=== PATIENT | female | born 1945 | race Caucasian/White ===

== ENCOUNTER 2023-02-25 07:57 | Outpatient (OUT) | payer MEDICARE, OTHER, SELFPAY ==
[2023-02-25 08:55] LABS: Basophils Absolute Auto 0.1 10^3/uL (0.0-0.1); Basophils Percent Auto 0.8 % (0.2-2.0); Eosinophils Absolute Auto 0.2 10^3/uL (0.0-0.7); Eosinophils Percent Auto 1.8 % (0.9-7.0); Hematocrit 42.8 % (36.0-48.0); Hemoglobin 13.9 g/dL (12.0-16.0); Immature Granulocytes Abs Auto 0.03 10^3/uL (0.00-0.03); Immature Granulocytes Pct Auto 0.3 % (0.0-0.5); Lymphocytes Absolute Auto 1.6 10^3/uL (1.2-3.8); Mean Corpuscular HGB Conc 32.5 g/dL (29.9-35.2); Mean Corpuscular Hemoglobin 31.2 pg (26.7-34.0); Mean Corpuscular Volume 96.2 fL (81.0-99.0); Mean Platelet Volume 11.2 fL (9.5-13.5); Monocytes Absolute Auto 0.8 10^3/uL (0.3-0.8); Monocytes Percent Auto 8.2 % (1.7-12.0); Neutrophils Absolute Auto 7.2 10^3/uL (1.4-6.5); Neutrophils Percent Auto 72.9 % (43.0-75.0); Platelet Count 245 10^3/uL (150-450); Red Blood Count 4.45 10^6/uL (4.20-5.40); Red Cell Distribution Width 12.4 % (11.0-15.0); White Blood Count 9.9 10^3/uL (4.0-11.0)
[2023-02-25 09:41] LABS: Alanine Aminotransferase 22 U/L (14-59); Albumin Globulin Ratio 0.9; Albumin Level 3.8 g/dL (3.4-5.0); Alkaline Phosphatase 91 U/L (46-116); Anion Gap 13.4; Aspartate Amino Transferase 20 U/L (15-37); BUN Creatinine Ratio 20.9; Bilirubin Total 0.6 mg/dL (0.2-1.0); Calcium 10.4 mg/dL (8.5-10.1); Carbon Dioxide 30.7 mmol/L (21.0-32.0); Chloride 99 mmol/L (98-107); Chol HDL Ratio 2.3; Cholesterol 264 mg/dL (<=200); Estimated GFR (African America 37 (>=60); Estimated GFR (Non-African Ame 31 (>=60); Free T3 2.74 pg/mL (2.18-3.98); Globulin 4.3 g/dL; Glucose 131 mg/dL (74-106); HDL Cholesterol 114 mg/dL (40-60); Potassium 4.1 mmol/L (3.5-5.1); Sodium 139 mmol/L (136-145); Thyroid Stimulating Hormone 4.194 uIU/mL (0.358-3.740); Total Protein 8.1 g/dL (6.4-8.2); Triglycerides 105 mg/dL (<=150)
[2023-02-25 10:53] LABS: Estimated Average Glucose 117 mg/dL; Glycohemoglobin A1C 5.7 % (4.5-6.2)
[2023-02-26 11:09] LABS: Insulin 6.6 uIU/mL (2.6-24.9)
== END 2023-02-25 07:58 ==
PROVIDERS: PCP Family Medicine; Visit Provider Family Medicine
DX: I34.0 Nonrheumatic mitral (valve) insufficiency (principal); I48.0 Paroxysmal atrial fibrillation; E78.5 Hyperlipidemia, unspecified; R73.09 Other abnormal glucose; D64.9 Anemia, unspecified; E55.9 Vitamin D deficiency, unspecified; I11.0 Hypertensive heart disease with heart failure; I50.30 Unspecified diastolic (congestive) heart failure
CPT/HCPCS: 36415; 80053; 80061; 82306; 83036; 83525; 83540; 83880; 84436; 84443; 84481; 85025

== ENCOUNTER 2023-03-04 10:59 | Emergency (ER) | payer MEDICARE, OTHER, SELFPAY ==
[2023-03-04 11:03] VITALS: BP 177/96; PULSE 71; RESP 20; TEMP 36.6; O2SAT 98
--- NOTE | 2023-03-04 11:15 | PC.NURSE ---
Nasal clamp applied agt time of arrival to room 11 and pt's fface was cleaned up by RN from the blood. Pt and family member aware to let RN knnow if she becomes nauseas from swallowing the blood. Pt states she understands.
--- NOTE | 2023-03-04 11:56 | ED_ITS ---
HPI - Epistaxis General Chief Complaint: Epistaxis Stated Complaint: NOSE BLEED Time Seen by Provider: 03/04/23 11:56 Source: patient Mode of arrival: walk-in Limitations: no limitations History of Present Illness HPI Narrative: Pt presents emergency department complaining of right naris epistaxis. She states this started this morning and has not stopped. Patient has been applying pressure. She has a history of hypertension her blood pressure was 170 when it started and she took her blood pressure medication this morning. Patient denies any nasal trauma. She has not been sick with any upper respiratory infection symptoms. She is only had this happen 20 years ago. She denies any trauma. Related Data Previous Rx's Medication Instructions Recorded amoxicillin 875 mg-potassium 1 tab PO Q12H #14 tabs 03/04/23 clavulanate 125 mg tablet Allergies Allergy/AdvReac Type Severity Reaction Status Date / Time No Known Drug Allergies Allergy Verified 03/04/23 11:07 Review of Systems ROS Status of ROS 10 or more systems reviewed and unremarkable except as noted in history and below Exam Narrative Exam Narrative: Nurses notes and vital signs reviewed and patient is not hypoxic. General: Nontoxic, Well-appearing and in no apparent distress. Skin: Warm, dry, no pallor noted. No Rash Head: Normocephalic, atraumatic. Neck: Supple, non-tender. Eye: Pupils are equal, round and EOMI. No scleral icterus. Ears, Nose, Mouth, and Throat: TM clear, no posterior oropharynx erythema, Right naris with anterior plexus bleeding. There is a clot noted. Pressure applied for 20 minutes not resolving. Nasal packing done with a Rhino Rocket 5.5 anterior packing. bleeding stopped. pt tolerated well. there is significant narrowing of nasal cavity at 4cm. it was not advanced fully. uvula is mid- line, Oral mucosa is moist Cardiovascular: Regular Rate and Rhythm without murmur, gallop or rub. Respiratory: No accessory muscle use or respiratory distress. Lungs are clear to auscultation, no wheezing, rales or rhonchi Chest Wall: no tenderness Back: No midline thoracic or lumbar vertebral tenderness. No CVA tenderness Musculoskeletal: normal ROM, no calf or popliteal tenderness, no lower extremity edema/swelling GI: Abdomen is soft, non-distended. Normal bowel sounds. No masses appreciated. No tenderness to palpation. No rebound, guarding, or rigidity noted. Neurological: A&O x4. No cranial nerve dysfunction observed. No truncal ataxia. Moves all extremities. Sensation intact. Psychiatric: Cooperative and interactive. Normal mood and affect. Constitutional Vital Signs - 24 hr 03/04/23 11:03 03/04/23 12:56 Temperature 98 F Pulse Rate [Monitor] 71 Respiratory Rate 20 Blood Pressure [Right Arm] 177/96 H 188/87 H Pulse Oximetry 98 Oxygen Delivery Method Room Air Course Vital Signs Vital signs: Vital Signs Temperature 98 F 03/04/23 11:03 Pulse Rate 71 03/04/23 11:03 Respiratory Rate 20 03/04/23 11:03 Blood Pressure 177/96 H 03/04/23 11:03 Pulse Oximetry 98 03/04/23 11:03 Oxygen Delivery Method Room Air 03/04/23 11:03 Temperature 98 F 03/04/23 11:03 Pulse Rate 71 03/04/23 11:03 Respiratory Rate 20 03/04/23 11:03 Blood Pressure 188/87 H 03/04/23 12:56 Pulse Oximetry 98 03/04/23 11:03 Oxygen Delivery Method Room Air 03/04/23 11:03 MDM - Epistaxis MDM Narrative Medical decision making narrative: Rhino Rocket applied.Bleeding improved. The patient is nontoxic, stable for outpatient follow-up and treatment. pt blood pressure 147/ 90. Patient started on Augmentin. She will follow up with primary care doctor and ENT in 3-4 days for removal. Patient will continue to monitor blood pressure. At this time the patient is without objective evidence of an acute process requiring hospitalization or inpatient management. The patient has remained hemodynamically stable. No additional indication for emergent studies at this time. I answered all questions. Discussed discharge instructions including standard anticipatory guidance and what should prompt a return to the emergency department, including if they get worse are not getting better or develops any new or concerning symptoms. I've given them specific time frame in which to follow-up, and who to follow-up with. The patient demonstrates understanding. Patient is nontoxic and stable for discharge with outpatient follow-up. This note was created with the assistance of a speech recognition program. Although the intention is to generate documents that actually reflects the content of the visit, no guarantees can be provided that every mistake has been identified and corrected by editing. Discharge Plan Discharge Chief Complaint: Epistaxis Clinical Impression: Epistaxis Patient Disposition: Home, Self-Care Time of Disposition Decision: 12:01 Prescriptions / Home Meds: New amoxicillin-pot clavulanate 875-125 mg tablet 1 tab PO Q12H Qty: 14 0RF Instructions: Nosebleed (ED) Stand Alone Forms: Portal Instructions Referrals: Xavier Mcnamara MD [Primary Care Provider] - 1 week Nadya Mejias MD [Physician] - 1 week Discharge Date/Time: 03/04/23 12:58
[2023-03-04 12:56] VITALS: BP 188/87
== END 2023-03-04 12:58 | disposition home or self-care (01) ==
PROVIDERS: Emergency Provider Emergency Medicine; PCP Family Medicine
DX: R04.0 Epistaxis (principal)
CPT/HCPCS: 30901; 99283

== ENCOUNTER 2023-04-15 08:19 | Outpatient (OUT) | payer MEDICARE, OTHER, SELFPAY ==
[2023-04-15 09:30] LABS: Anion Gap 11.5; BUN Creatinine Ratio 22.3; Calcium 10.6 mg/dL (8.5-10.1); Carbon Dioxide 32.4 mmol/L (21.0-32.0); Chloride 102 mmol/L (98-107); Estimated GFR (African America 41 (>=60); Estimated GFR (Non-African Ame 34 (>=60); Glucose 125 mg/dL (74-106); Potassium 3.9 mmol/L (3.5-5.1); Sodium 142 mmol/L (136-145)
== END 2023-04-15 08:20 | disposition home or self-care (01) ==
LOC: LAB 08:21
PROVIDERS: PCP Family Medicine; Visit Provider Internal Medicine Interventional Cardiology
DX: N28.9 Disorder of kidney and ureter, unspecified (principal)
CPT/HCPCS: 36415; 80048

== ENCOUNTER 2023-05-02 08:18 | Outpatient (OUT) | payer MEDICARE, OTHER, SELFPAY ==
--- NOTE | 2023-05-02 08:00 | NM_ITS ---
The [address] [address] Patient Name: ANDREW JAMISON MRN: [id number] date: 1945 Sex: F Assigned Patient Location: [place] Current Patient Location: Accession/Order Number: [id number] Exam Date: 05/02/2023 08:00 Report Date: 05/03/2023 09:18 At the request of: CASSIDY LENZ Procedure: NM bone scan whole body EXAMINATION: NE bone scan whole body HISTORY: MALIGNANT NEOPLASM OF BREAST, ESTROGEN RECEPTOR POSITIVE COMPARISON: No relevant comparison available. TECHNIQUE: After obtaining the patient's consent, Technetium 99m MDP was injected intravenously. Images were obtained approximately two hours later. FINDINGS: ABNORMALITIES: No suspicious foci of radiotracer uptake. OTHER: Radiotracer uptake over the right maxillary sinus suggestive of sinusitis. Other scattered foci compatible with degenerative joint disease. NE/NE bone scan whole body IMPRESSION: 1. No evidence of skeletal metastasis. Electronically authenticated by: KATLYN MCGREGOR Date: 05/03/2023 09:18
== END 2023-05-02 08:19 | disposition home or self-care (01) ==
LOC: NM 08:19
PROVIDERS: PCP Family Medicine; Visit Provider Internal Medicine Hematology & Oncology
DX: C50.919 Malignant neoplasm of unspecified site of unspecified female breast (principal); Z17.0 Estrogen receptor positive status [ER+]
CPT/HCPCS: 78306; A9503

== ENCOUNTER 2023-07-01 09:08 | Outpatient (OUT) | payer MEDICARE, OTHER, SELFPAY ==
[2023-07-01 10:24] LABS: Alanine Aminotransferase 17 U/L (14-59); Albumin Globulin Ratio 0.9; Albumin Level 3.6 g/dL (3.4-5.0); Alkaline Phosphatase 82 U/L (46-116); Anion Gap 13.3; Aspartate Amino Transferase 15 U/L (15-37); BUN Creatinine Ratio 19.2; Bilirubin Total 0.5 mg/dL (0.2-1.0); Calcium 9.8 mg/dL (8.5-10.1); Carbon Dioxide 31.5 mmol/L (21.0-32.0); Chloride 102 mmol/L (98-107); Estimated GFR (African America 34 (>=60); Estimated GFR (Non-African Ame 28 (>=60); Globulin 4.2 g/dL; Glucose 129 mg/dL (74-106); Potassium 3.8 mmol/L (3.5-5.1); Sodium 143 mmol/L (136-145); Total Protein 7.8 g/dL (6.4-8.2)
== END 2023-07-01 09:09 | disposition home or self-care (01) ==
LOC: LAB 09:10
PROVIDERS: PCP Family Medicine; Visit Provider Family Medicine
DX: I50.9 Heart failure, unspecified (principal)
CPT/HCPCS: 36415; 80053

== ENCOUNTER 2023-07-31 09:19 | Outpatient (OUT) | payer MEDICARE, OTHER, SELFPAY ==
[2023-07-31 10:04] LABS: Alanine Aminotransferase 16 U/L (14-59); Albumin Globulin Ratio 0.8; Albumin Level 3.3 g/dL (3.4-5.0); Alkaline Phosphatase 84 U/L (46-116); Anion Gap 11.9; Aspartate Amino Transferase 14 U/L (15-37); BUN Creatinine Ratio 19.2; Bilirubin Total 0.6 mg/dL (0.2-1.0); Calcium 8.9 mg/dL (8.5-10.1); Carbon Dioxide 32.8 mmol/L (21.0-32.0); Chloride 100 mmol/L (98-107); Estimated GFR (African America 42 (>=60); Estimated GFR (Non-African Ame 35 (>=60); Globulin 4.1 g/dL; Glucose 128 mg/dL (74-106); Potassium 3.7 mmol/L (3.5-5.1); Sodium 141 mmol/L (136-145); Total Protein 7.4 g/dL (6.4-8.2)
== END 2023-07-31 09:20 | disposition home or self-care (01) ==
LOC: LAB 09:24
PROVIDERS: PCP Family Medicine; Visit Provider Family Medicine
DX: I50.9 Heart failure, unspecified (principal)
CPT/HCPCS: 36415; 80053

== ENCOUNTER 2023-08-28 08:18 | Outpatient (OUT) | payer MEDICARE, OTHER, SELFPAY ==
[2023-08-28 09:47] LABS: Alanine Aminotransferase 19 U/L (14-59); Albumin Globulin Ratio 0.8; Albumin Level 3.5 g/dL (3.4-5.0); Alkaline Phosphatase 87 U/L (46-116); Anion Gap 14.9; Aspartate Amino Transferase 19 U/L (15-37); BUN Creatinine Ratio 19.6; Bilirubin Total 0.5 mg/dL (0.2-1.0); Calcium 9.2 mg/dL (8.5-10.1); Carbon Dioxide 28.9 mmol/L (21.0-32.0); Chloride 101 mmol/L (98-107); Estimated GFR (African America 41 (>=60); Estimated GFR (Non-African Ame 34 (>=60); Globulin 4.3 g/dL; Glucose 127 mg/dL (74-106); Potassium 3.8 mmol/L (3.5-5.1); Sodium 141 mmol/L (136-145); Total Protein 7.8 g/dL (6.4-8.2)
== END 2023-08-28 08:19 | disposition home or self-care (01) ==
LOC: LAB 08:20
PROVIDERS: PCP Family Medicine; Visit Provider Family Medicine
DX: I50.9 Heart failure, unspecified (principal)
CPT/HCPCS: 36415; 80053

== ENCOUNTER 2023-08-28 08:41 | Outpatient (OUT) | payer MEDICARE, OTHER, SELFPAY ==
--- NOTE | 2023-08-28 08:43 | MM_ITS ---
Patient Name: ANDREW JAMIOSN MR#: [id number] : 1945 Exam Date: 08/28/2023 Ordering Doctor: DR. CASSIDY LENZ M.D. RADIOLOGY REPORT PROCEDURE: MM TOMOSYNTHESIS SCREENING BI COMPARISON: MG [facility] DIAGNOSTIC 3D GISELE CAD, 01/05/2022. INDICATIONS: Screening Calculator Name NCI Breast Cancer Risk Assessment Tool 5 Year Breast Cancer Risk n/a% Lifetime Breast Cancer Risk n/a% Personal Breast Cancer Yes, left, infiltrating ductal carcinoma Personal Ovarian Cancer No Treatments lumpectomy and radiation Family Cancers None LOCATION: [facility] BREAST COMPOSITION: Scattered areas fibroglandular density. FINDINGS: DIAGNOSTIC CATEGORY 2--BENIGN FINDING. NO CHANGE FROM COMPARISON. Scattered benign-appearing calcifications are present. Scattered benign-appearing lymph nodes are present. RIGHT BREAST: No significant suspicious finding. LEFT BREAST: Linear scar markers. Extensive surgical clips. Asymmetrically small with skin thickening and asymmetric diffuse increase in fibroglandular density, stable from the prior exam and likely related to postsurgical postprocedural changes RECOMMENDATIONS: ROUTINE MAMMOGRAM AND CLINICAL EVALUATION IN 12 MONTHS. PLEASE NOTE: A NORMAL MAMMOGRAM DOES NOT EXCLUDE THE POSSIBILITY OF BREAST CANCER. A CLINICALLY SUSPICIOUS PALPABLE LUMP SHOULD BE BIOPSIED. Dictated by: Rory Clark MD on 08/28/2023 at 12:34 Approved by: Rory Clark MD on 08/28/2023 at 12:39
== END 2023-08-28 08:42 | disposition home or self-care (01) ==
LOC: MAMMO 08:41
PROVIDERS: PCP Family Medicine; Visit Provider Internal Medicine Hematology & Oncology
DX: C50.412 Malignant neoplasm of upper-outer quadrant of left female breast (principal); Z17.0 Estrogen receptor positive status [ER+]; Z12.31 Encounter for screening mammogram for malignant neoplasm of breast; Z85.3 Personal history of malignant neoplasm of breast
CPT/HCPCS: 77063; 77067

== ENCOUNTER 2023-09-23 19:15 | Emergency (ER) | payer MEDICARE, OTHER, SELFPAY ==
[2023-09-23] VITALS (9 sets, daily range): BP systolic 151–169; BP diastolic 76–125; PULSE 72–88; RESP 15–21; TEMP 37.3; O2SAT 93–95; BMI 24.0
--- OUTSIDE RECORDS SUMMARY | 2023-09-23 19:27 | XMS_ITS | CCD ---
Author Name Unknown Address [address] [facility] [address] [place] [address] Organization [facility] Care Team Providers Care 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 Name Role Phone MD Eduardo Sharpe Primary Care Provider [phone] MD Radha Echavarriaop Admit Provider MD Shaka Echavarria Attending Provider MD Brayden Hernandez Other Provider MD Brayden Hernandez Attending Provider Eduardo Sharpe MD Primary Care Provider [phone] Brayden Hernandez Unavailable EDUARDO SHARPE Primary Care Unavailable EDUARDO SHARPE Referring Unavailable GANESH HALE Admitting Unavailable GANESH HALE Attending Unavailable Unavailable Primary Care Provider Unavailcharles e PROVIDER, UNKNOWN Attending Unavailable PROVIDER, UNKNOWN Admitting Unavailable Eduardo Sharpe MD Primary Care Provider [phone] MIKALA HIGGINS Admitting Unavailable MIKALA HIGGINS Attending Unavailable DR KATLYN MCGREGOR Consulting Unavailable DR EDUARDO SHARPE Primary Care Unavailable MIKALA HIGGINS Consulting Unavailable DR CATINA OCHOA Consulting Unavailable DR EDUARDO SHARPE Admitting Unavailable DR EDUARDO SHARPE Consulting Unavailable DR EDUARDO SHARPE Attending Unavailable RAY MADISON Procedure Practitioner Unavailab DR EDUARDO Urena Primary Care Unavailable DR KATLYN MCGREGOR Consulting Unavailable RAY MADISON Consulting Unavailable MICHAEL FERRELL Consulting Unavailable JAZMÍN JACKSON Consulting Unavailable SHAIKH Barbara AGUIAR Consulting Unavailable PATI MATHUR Consulting Unavailable JUAN LOCKETT Consulting Unavailable DR EDUARDO SHARPE Admitting Unavailable DR EDUARDO SHARPE Attending Unavailable DR EDUARDO SHARPE Primary Care Unavailable DR EDUARDO SHARPE Primary Care Unavailable DELL, DR CLARK Attending Unavailable DELL, DR CLARK Consulting Unavailable DELL, DR CLARK Admitting Unavailable RE MERCEDES Consulting Unavailable TIBURCIO HENDERSON Admitting Unavailable RAHEEL WRIGHT Primary Care Unavailable TIBURCIO HENDERSON Attending Unavailable FAWWAD, PARKS H Attending Unavailable FAWWAD, PARKS H Admitting Unavailable DELL, DR CLARK Primary Care Unavailable DELL, DR CLARK Primary Care Unavailable FAWWAD, PARKS H Attending Unavailable FAWWAD, PARKS H Admitting Unavailable HOGreg, DR CLARK Primary Care Unavailable FAWWAD, PARKS H Attending Unavailable FAWWAD, PARKS H Admitting Unavailable FAWWAD, PARKS H Attending Unavailable FAWWAD, PARKS H Admitting Unavailable DELL, DR CLARK Primary Care Unavailable FAWWAD, PARKS H Admitting Unavailable FAWWAD, PARKS H Attending Unavailable DELL, DR CLARK Primary Care Unavailable DELL, DR CLARK Primary Care Unavailable FAWWAD, PARKS H Admitting Unavailable FAWWAD, PARKS H Attending Unavailable FAWWAD, PARKS H Attending Unavailable FAWWAD, PARKS H Admitting Unavailable DR EDUARDO SHARPE Primary Care Unavailable FAWWAD, PARKS H Attending Unavailable FAWWAD, PARKS H Admitting Unavailable DELL, DR CLARK Primary Care Unavailable FAWWAD, PARKS H Attending Unavailable FAWWAD, PARKS H Admitting Unavailable DELL, DR CLARK Primary Care Unavailable DELL, DR CLARK Primary Care Unavailable DELL, DR CLARK Attending Unavailable DELL, DR CLARK Consulting Unavailable DELL, DR CLARK Admitting Unavailable SANCHEZARNALDO Consulting Unavailable DELL, DR CLARK Primary Care Unavailable FAWWAD, PARKS H Attending Unavailable FAWWAD, PARKS H Admitting Unavailable DELL, DR CLARK Admitting Unavailable DELL, DR CLARK Consulting Unavailable DELL, DR CLARK Procedure Practitioner Unavailab amaya SHARPE, DR CLARK Attending Unavailable DELL, DR CLARK Primary Care Unavailable DERICK, DR YU Damon Consulting Unavailcharles COLE, DR GRIMALDO Consulting Unavailable BALBIR, DR KATLYN Aragon Consulting Unavailable SAMKATHI HUTSON Consulting Unavailable RE MENDOZA Consulting Unavailable JAZMÍN MACHADO Consulting Unavailable ABHYANKAR, SANDEEP Admitting Unavailable ABLEXAR, SANDEEP Attending Unavailable BALBIR, DR KATLYN Aragon Consulting Unavailable DELL, DR CLARK Primary Care Unavailable ABHYANKAR, SANDEEP Consulting Unavailable LEONAY, DR CLARK Primary Care Unavailable LEONAY, DR CLARK Attending Unavailable HOY, DR CLARK Admitting Unavailable HOY, DR CLARK Consulting Unavailable LEONAY, DR CLARK Primary Care Unavailable LEONAY, DR CLARK Attending Unavailable HOY, DR CLARK Admitting Unavailable HOY, DR CLARK Consulting Unavailable HOY, DR CLARK Attending Unavailable HOY, DR CLARK Admitting Unavailable DELL, DR CLARK Primary Care Unavailable HAY, DR DELEON Consulting Unavailable ANGÉLICA BAILEY Consulting Unavailable LEONAY, DR CLARK Primary Care Unavailable SHAIKH AGUIAR H Attending Unavailable SHIRLEY AGUIARIKH H Admitting Unavailable DELL, DR CLARK Primary Care Unavailable MOUKAPRAVEEN, DR BORRERO Consulting Unavailable MOUKARBMELIDA, DR BORRERO Admitting Unavailable MOUKARBEL, DR BORRERO Attending Unavailable MOUKAGISSELL MORTON Attending Unavailable DAYO GRIFFIN Attending Unavailable RAHEEL WRIGHT Attending Unavailable Eduardo Sharpe MD Primary Care Provider [phone] AnithaBala bar Unavailable HOY, EDUARDO M Primary Care Unavailable HOY, EDUARDO M Primary Care Unavailable HOY, EDUARDO M Primary Care Unavailable ABHYANKAR, SANDEEP Attending Unavailable ABHYANKAR, SANDEEP Referring Unavailable HOY, EDUARDO M Primary Care Unavailable HOY, EDUARDO M Primary Care Unavailable ABHYANKAR, SANDEEP Attending Unavailable ABHYANKAR, SANDEEP Referring Unavailable HOY, EDUARDO M Primary Care Unavailable HOY, EDUARDO M Primary Care Unavailable HOY, EDUARDO M Primary Care Unavailable ABHYANKAR, SANDEEP Attending Unavailable ABHYANKAR, SANDEEP Referring Unavailable HOY, EDUARDO M Primary Care Unavailable Allergies Allergy Classification Reported Allergen(s) Allergy Type Date of Onset Reaction(s) Facility (1 source) Hiqfmko-LHM-WpE Reductase Inhibitor Propensity to adverse reactions 0 [facility] (4 sources) HMG-CoA reductase inhibitor; Translations: [XODKNOG-HQF-YCT REDUCTASE INHIBITORS] Drug Allergy 8 Unknown [facility] (1 source) black walnut pollen extract Drug Allergy 8 [facility] (10 sources) HMG-CoA reductase inhibitor Drug Allergy 8 Unknown [facility] (2 sources) Simvastatin Drug Allergy [facility] Medications Current Medications Medication Drug Class(es) Dates Sig (Normalized) Sig (Original) Accu-Chek Fifi Plus - (2 sources) Accu-Chek Fifi Plus - TEST BLOOD SUGAR ONCE DAILY DX: E11.65 In Vitro for 90 Days Active bimatoprost 0.1 mg/ml ophthalmic solution (13 sources) Prostaglandin Analog Start: 11-09-2021 take 0.01 drop(s) into the eye(s) once daily in the evening Bimatoprost (Lumigan) 0.01 % Drops Active 1 DROPS EYE-BOTH Every evening November 09, 2021 7:27pm bimatoprost (LUM IGAN) 0.01 % drop ophthalmic drops 1 Drop as directed. 0 Active Comment on above: 1 Drop as directed. carvedilol 25 mg oral tablet (18 sources) alpha-Adrenergic Isabel, beta-Adrenergic Isabel Start: 11-09-2021 take 25 mg by mouth twice daily Carvedilol Active 25 MG PO Twice daily November 09, 2021 8:12pm Start: 09-10-2020 End: 09-10-2020 Carvedilol Discontinued TABL ET September 10, 2020 2:05am September 10, 2020 2:19am Start: 09-10-2020 End: 11-09-2021 take 1 tablet by mouth twice daily Carvedilol (Coreg) 12.5 mg Tablet Discontinued 12.5 MG PO Twice daily 60 September 15, 2020 5:27pm November 09, 2021 8:14pm take 1 tablet by mena once daily carvedilol (COREG) 25 mg tablet Take 25 mg by mouth as directed. Takes 1 1/2 tablet 2x a day 0 Active Comment on above: Take 25 mg by mouth as directed. Takes 1 1/2 tablet 2x a day ergocalciferol 1.25 mg oral capsule (2 sources) Provitamin D2 Compound Start: 09-10-20 End: 09-15-20 take 1250 ug by mouth every week Ergocalciferol (Vitamin D2) Active 1250 MCG PO every week 8 September 15, 2020 5:27pm Takes every Saturday furosemide 20 mg oral tablet (16 sources) Loop Diuretic Start: 09-22-20 take 40 mg by mouth once daily Furosemide Active 40 MG PO Daily 60 September 22, 2020 1:09pm See your primary care provider or cardiology for refills Start: 09-10-2020 End: 09-10-2020 Furosemide Discontinued TABL ET September 10, 2020 2:05am September 10, 2020 2:21am Comment on above: Take 40 mg by mouth once daily. Multivitamin preparation (1 source) Start: 09-10-20 take 1 tablet by mouth once daily Multivitamin Active 1 TAB PO Daily September 10, 2020 1:59am 12 hr propafenone hydrochloride 325 mg extended release oral capsule (19 sources) Antiarrhythmic Start: 11-09-19 take 325 mg by mouth twice daily Propafenone Active 325 MG PO Twice daily November 09, 2021 8:13pm Start: 04-12-2021 take 1 capsule by [facility] every twelve hours, then take 1 capsule by mouth every twelve hours propafenone SR (RYTHMOL SR) 325 mg 12 hr capsule Take 325 mg by mouth q 12 HR. 0 04/12/2021 Active Start: 09-19-2020 End: 09-19-2020 Propafenone Discontinued MG PO September 19, 2020 1:17pm September 19, 2020 1:23pm Start: 09-10-2020 End: 09-10-2020 Propafenone Discontinued MG PO September 10, 2020 2:05am September 10, 2020 2:21am Start: 09-10-2020 End: 11-09-2021 take 225 mg by mouth twice daily Propafenone Discontinued 225 MG PO Twice daily 60 September 15, 2020 5:27pm November 09, 2021 8:15pm Comment on above: Take 325 mg by mouth q 12 HR. Completed/Discontinued Medications Medication Drug Class(es) Dates Sig (Normalized) Sig (Original) acetaminophen 325 mg oral capsule (1 source) Start: 09-10-2020 End: 11-09-2021 take 2 capsules by mouth every four hours Acetaminophen (Tylenol) 325 mg Capsule Discontinued 650 MG PO Q4H September 10, 2020 1:30am November 09, 2021 7:27pm [id number] 200 actuat albuterol 0.09 mg/actuat metered dose inhaler (2 sources) beta2-Adrenergic Agonist Start: 09-15-2020 End: 11-09-2021 Albuterol Sulfate (Ventolin Hfa) 90 mcg/actuation HFA aerosol inhaler Discontinued 2 INH INHALATION EVERY 4-6 HOURS 8.5 September 15, 2020 12:39pm November 09, 2021 7:27pm Start: 09-10-2020 End: 09-15-2020 take 90 ug by inhalation four times daily Albuterol Discontinued 90 MCG INHALATION Four times daily September 10, 2020 1:30am September 15, 2020 12:43pm 2 puffs alogliptin 25 mg oral tablet (1 source) Start: 09-10-2020 End: 09-10-2020 take 25 mg by mouth once daily Alogliptin Discontinued 25 MG PO Daily September 10, 2020 1:47am September 10, 2020 2:18am aluminum hydroxide 40 mg/ml / magnesium hydroxide 40 mg/ml / simethicone 4 mg/ml oral suspension (1 source) Start: 09-10-2020 End: 09-19-2020 take 1 mL by mouth every four hours Alum-Mag Hydroxide-Simeth Discontinued 30 ML PO Q4H September 10, 2020 1:30am September 19, 2020 1:20pm amLODIPine 2.5 mg oral tablet (15 sources) Dihydropyridine Calcium Channel Isabel Start: 12-05-2021 take 2 tablets by mouth twice daily amLODIPine (NORVASC) 2.5 mg tablet Take 5 mg by mouth twice daily. 0 12/05/2021 Active Start: 11-11-2021 take 1 tablet by mena th once daily amLODIPine (NORVASC) 2.5 mg tablet Take 2.5 mg by mouth once daily. 0 12/05/2021 Active Comment on above: Take 2.5 mg by mouth once daily. Take 5 mg by mouth t wice daily. amoxicillin 875 mg / clavulanate 125 mg oral tablet (2 sources) Penicillin-class Antibacterial Start: 0 End: 0 take 1 tablet by mouth every twelve hours Amoxicillin-Pot Clavulanate (Augmentin) 875-125 mg Tablet Discontinued 1 TAB PO Q12H 10 September 15, 2020 12:42pm September 22, 2020 1:11pm Stop date 09/20/20 anastrozole 1 mg oral tablet (18 sources) Aromatase Inhibitor Start: 2 End: 3 take 1 tablet by mouth once daily anastrozole (ARIMIDEX) 1 mg tablet Indications: Malignant neoplasm of upper-outer quadrant of left breast in female, estrogen receptor positive (HCC) TAKE 1 TABLET BY MOUTH EVERY DAY 90 tablet 2 05/08/2023 Active Start: 09-10-2020 End: 09-15-2020 take 1 mg by mouth once daily Anastrozole Active 1 MG PO Daily September 15, 2020 5:27pm Comment on above: TAKE 1 TABLET BY MENA TH EVERY DAY aspirin 81 mg oral tablet (9 sources) Platelet Aggregation Inhibitor, Nonsteroidal Anti-inflammatory Drug Start: End: take 81 mg by mouth once daily Aspirin Discontinued 81 MG PO Daily September 10, 2020 1:47am November 09, 2021 7:27pm Comment on above: Take 81 mg by mouth once daily. bisacodyl 10 mg rectal suppository (1 source) Stimulant Laxative Start: End: Bisacodyl (Dulcolax (Bisacodyl)) 10 mg Suppository Discontinued 10 MG NC Daily September 10, 2020 1:30am September 19, 2020 1:20pm calcium carbonate 625 mg / cholecalciferol 125 unt oral tablet (10 sources) Vitamin D Start: take 1 tablet by mouth twice daily calcium-cholecalcife rol, D3, (OSCAL+D 250) 250-125 mg-unit per tablet Indications: Encounter for screening for osteoporosis , Asymptomatic postmenopausal status , Other specified menopausal and perimenopausal disorders , Malignant neoplasm of upper-outer quadrant of left breast in female, estrogen receptor positive (HCC) Take 1 tablet by mouth twice daily. 60 tablet 3 04/20/2021 Active Comment on above: Take 1 tablet by mena th twice daily. cetirizine hydrochloride 10 mg oral tablet (1 source) Histamine-1 Receptor Antagonist Start: End: take 10 mg by mouth once daily Cetirizine Discontinued 10 MG PO Daily September 10, 2020 1:47am September 22, 2020 1:11pm dexamethasone 6 mg oral tablet (1 source) Corticosteroid Start: End: take 6 mg by mouth once daily Dexamethasone Discontinued 6 MG PO Daily September 15, 2020 12:37pm September 22, 2020 1:11pm end 09/20 dextromethorphan hydrobromide 1 mg/ml / guaiFENesin 20 mg/ml oral solution (1 source) Uncompetitive V-ppsbio-F-aspartate Receptor Antagonist, Sigma-1 Agonist Start: End: take 1 mL by mouth every six hours Dextromethorphan-Gua ifenesin (Robitussin Cough-Chest Shadi Dm) 5-100 mg/5 mL Liquid Discontinued 10 ML PO Every 6 hours September 10, 2020 1:30am September 15, 2020 12:43pm dilTIAZem hydrochloride 60 mg oral tablet (1 source) Calcium Channel Isabel Start: End: Diltiazem Hcl Discontinued TABLET September 10, 2020 2:05am September 10, 2020 2:22am doxazosin 4 mg oral tablet (8 sources) alpha-Adrenergic Isabel Start: take 1 tablet by mouth once daily at bedtime doxazosin (CARDURA) 4 mg tablet Take 4 mg by mouth daily at bedtime. 0 04/01/2023 Active Comment on above: Take 4 mg by mouth d aily at bedtime. ezetimibe 10 mg oral tablet (17 sources) Dietary Cholesterol Absorption Inhibitor Start: End: Ezetimibe Discontinued MG TABLET September 10, 2020 2:05am September 10, 2020 2:19am Start: 09-10-2020 End: 09-15-2020 take 10 mg by mouth once daily Ezetimibe Active 10 MG PO Daily September 15, 2020 5:27pm Comment on above: Take 10 mg by mouth once daily. ferrous sulfate 325 mg oral tablet (8 sources) take 1 tablet by mouth once daily ferrous sulfate 325 mg (65 mg iron) tablet Take 325 mg by mouth once daily. 0 Active Comment on above: Take 325 mg by mouth once daily. flecainide acetate 100 mg oral tablet (1 source) Antiarrhythmic Start: End: take 100 mg by mouth every twelve hours Flecainide Discontinued 100 MG PO Q12H September 10, 2020 1:59am September 15, 2020 12:43pm 120 actuat fluticasone propionate 0.044 mg/actuat metered dose inhaler (2 sources) Corticosteroid Start: End: take 1 puff(s) by inhalation twice daily Fluticasone Propionate Discontinued 2 PUFF INHALATION Twice daily 10.6 September 15, 2020 5:27pm November 09, 2021 7:27pm hydrALAZINE hydrochloride 100 mg oral tablet (1 source) Arteriolar Vasodilator Start: End: Hydralazine Discontinued TABLET September 10, 2020 2:05am September 10, 2020 2:21am hyoscyamine sulfate 0.125 mg oral tablet (1 source) Start: End: take 1 tablet by mouth four times daily Hyoscyamine Sulfate (Levsin) 0.125 mg Tablet Discontinued 0.125 MG PO Four times daily September 10, 2020 1:30am September 15, 2020 12:43pm Insulin Aspart U-100 (Novolog Flexpen U-100 Insulin) 100 unit/mL (3 mL) Insulin Pen (2 sources) Start: End: Insulin Aspart U-100 (Novolog Flexpen U-100 Insulin) 100 unit/mL (3 mL) Insulin Pen Discontinued 0 UNIT SUBCUT Before meals and at bedtime September 10, 2020 2:24am September 15, 2020 5:21pm Start: 09-10-2020 End: 09-10-2020 inject 100 [IU] by subcutaneous injection at bedtime Insulin Aspart U-100 (Novolog Flexpen U-100 Insulin) 100 unit/mL (3 mL) Insulin Pen Discontinued SUBCUT Before meals and at bedtime September 10, 2020 1:30am September 10, 2020 2:21am irbesartan (1 source) Angiotensin 2 Receptor Isabel Start: 09-10-2020 End: 09-10-2020 Irbesartan Discontinued MG TABLET September 10, 2020 2:05am September 10, 2020 2:21am lactobacillus acidophilus [id number] unt / pectin 10 mg oral capsule (1 source) Start: 09-10-2020 End: 09-19-2020 take 1 capsule by mouth four times daily Acidophilus-Pectin , [place] (Acidophilus Probiotic) 100 million cell-10 mg Capsule Discontinued 1 CAP PO Four times daily September 10, 2020 1:59am September 19, 2020 1:20pm Stop date 09/10/20 Magnesium Hydroxide (1 source) Start: 09-10-2020 End: 09-19-2020 take 1 mL by mouth once daily Magnesium Hydroxide (Milk Of Magnesia) 400 mg/5 mL Suspension Discontinued 30 ML PO Daily September 10, 2020 1:27am September 19, 2020 1:20pm metFORMIN hydrochloride 500 mg oral tablet (18 sources) Biguanide Start: 11-11-2021 take 1 tablet by mouth twice daily metFORMIN (GLUCOPHAGE) 500 mg tablet Take 500 mg by mouth twice daily. 0 12/12/2021 Active Start: 11-09-2021 End: 11-11-2021 take 500 mg by mouth three times daily Metformin Discontinued 500 MG PO Three times daily November 09, 2021 8:13pm November 11, 2021 1:58pm Start: 09-10-2020 End: 11-09-2021 take 500 mg by mouth twice daily Metformin Discontinued 500 MG PO Twice daily 60 September 15, 2020 5:27pm November 09, 2021 8:14pm metFORMIN HCl 50 0 MG TAKE 2 TABLETS BY MOUTH EACH MORNING, AND 1 TABLET IN THE EVENING Oral for 90 Days Active Comment on above: Take 500 mg by mouth twice daily. Multivitamin capsule (12 sources) take 1 capsule by mouth once daily Multivitamin capsule Take 1 capsule by mouth once daily. 0 Active Comment on above: Take 1 capsule by [facility] once daily. nitroglycerin 0.4 mg sublingual tablet (1 source) Nitrate Vasodilator Start: 09-10-20 End: 11-09-19 Nitroglycerin Discontinued 0.4 MG SUBLINGUAL Every 5 minutes x 3 doses September 10, 2020 1:28am November 09, 2021 7:27pm omeprazole 40 mg delayed release oral capsule (16 sources) Proton Pump Inhibitor Start: 04-08-20 take 1 capsule by mouth once daily omeprazole (PRILOSEC) 40 mg capsule Take 40 mg by mouth once daily. 0 04/08/2021 Active Start: 09-10-2020 End: 09-15-2020 take 40 mg by mouth once daily Omeprazole Active 40 MG PO Daily September 15, 2020 5:27pm Comment on above: Take 40 mg by mouth once daily. ondansetron 4 mg oral tablet (1 source) Serotonin-3 Receptor Antagonist Start: 09-10-20 End: 09-15-20 take 1 tablet by mouth every six hours Ondansetron Hcl (Zofran) 4 mg Tablet Discontinued 4 MG PO Q6H September 10, 2020 1:30am September 15, 2020 12:43pm pioglitazone 30 mg oral tablet (2 sources) Peroxisome Proliferator Receptor alpha Agonist, Peroxisome Proliferator Receptor gamma Agonist, Thiazolidinedione Start: 09-10-20 End: 09-10-20 Pioglitazone Discontinued MG TABLET September 10, 2020 2:05am September 10, 2020 2:21am Start: 09-10-2020 End: 09-15-2020 take 30 mg by mouth once daily Pioglitazone Discontinu ed 30 MG PO Daily September 10, 2020 1:59am September 15, 2020 12:43pm polyethylene glycol 3350 14860 mg powder for oral solution (1 source) Osmotic Laxative Start: 09-10-2020 End: 09-19-2020 Polyethylene Glycol 3350 (Miralax) 17 gram Powder In Packet Discontinued 17 GM PO Daily September 10, 2020 1:30am September 19, 2020 1:20pm potassium chloride 10 meq extended release oral tablet (15 sources) Start: 09-22-2020 potassium chlo ride (K-TAB) 10 mEq tablet Potassium Chloride Active 10 MEQ PO Daily September 22, 2020 12:10pm See your primary care provider or cardiology for refills 0 09/22/2020 Active Comment on above: Potassium Chloride A ctive 10 MEQ PO Daily September 22, 2020 12:10pm See your primary care provider or cardiology for refills predniSONE 10 mg oral tablet (1 source) Start: 09-10-2020 End: 09-15-2020 take 10 mg by mouth three times daily Prednisone Discontinued 10 MG PO Three times daily September 10, 2020 1:59am September 15, 2020 12:43pm rivaroxaban 20 mg oral tablet (15 sources) Factor Xa Inhibitor Start: 09-10-2020 End: 11-09-2021 take 1 tablet by mouth once daily Rivaroxaban (Xarelto) 20 mg Tablet Discontinued 20 MG PO Daily September 15, 2020 5:27pm November 09, 2021 7:27pm Comment on above: Take 20 mg by mouth daily with dinner. SITagliptin 100 mg oral tablet (3 sources) Dipeptidyl Peptidase 4 Inhibitor Start: 09-10-2020 End: 11-09-2021 take 100 mg by mouth once daily Sitagliptin Discontinued 100 MG PO Daily September 15, 2020 5:27pm November 09, 2021 7:27pm sodium phosphate, dibasic 59.3 mg/ml / sodium phosphate, monobasic 161 mg/ml enema (1 source) Start: 09-10-2020 End: 09-19-2020 Sodium Phosphates (Fleet Enema) 19-7 gram/118 mL Enema Discontinued 118 ML NC Daily September 10, 2020 1:59am September 19, 2020 1:20pm Travoprost (Travatan Z) 0.004 % Drops (2 sources) Start: 09-15-2020 End: 11-09-2021 take 0.004 drop(s) into the eye(s) once daily in the evening Travoprost (Travatan Z) 0.004 % Drops Discontinued 1 DROPS EYE-BOTH Every evening September 15, 2020 5:29pm November 09, 2021 7:27pm Start: 09-10-2020 End: 09-15-2020 take 0.004 drop(s) into the eye(s) once daily in the evening Travoprost (Travatan Z) 0.004 % Drops Discontinued 1 DROPS EYE-BOTH Every evening September 10, 2020 1:59am September 15, 2020 5:29pm warfarin sodium 5 mg oral tablet (3 sources) Vitamin K Antagonist Start: 11-09-2021 End: 11-11-2021 take 5 mg by mouth once daily Warfarin Discontinued 5 MG PO Daily November 09, 2021 7:27pm November 11, 2021 1:58pm Zinc (2 sources) Start: 09-15-2020 End: 09-19-2020 take 50 mg by mouth once daily Zinc Discontinued 50 MG PO Daily September 15, 2020 5:27pm September 19, 2020 1:20pm Start: 09-10-2020 End: 09-15-2020 take 50 mg by mouth once daily Zinc Discontinued 50 MG PO Daily September 10, 2020 1:59am September 15, 2020 5:27pm Problems Active Problems Problem Classification Problem Date Documented Da te Episodic/Chronic Acute and unspecified renal failure (1 source) Acute kidney failure, unspecified; Translations: [ACUTE KIDNEY FAILURE UNSPECIFIED] Onset: 07-19-2022 Episodic Acute cerebrovascular disease (8 sources) Spontaneous cerebral hemorrhage; 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, unspecified] Onset: 11-13-2021 Resolved: 11-30-2021 11-10-2021 Chronic Cancer of breast (20 sources) Malignant neoplasm of upper-outer quadrant of female breast; Translations: [Malignant neoplasm of upper-outer quadrant of left female breast] Onset: 06-12-2018 Chronic Cancer of breast (1 source) Personal history of malignant neoplasm of breast; Translations: [PERS HX MALIGNANT NEOPLASM BREAST] Onset: 09-03-2022 Episodic Cardiac dysrhythmias (10 sources) Atrial fibrillation; Translations: [Unspecified atrial fibrillation] Onset: 05-07-2022 09-13-2020 Chronic Chronic kidney disease (11 sources) Chronic kidney disease, stage 2 (mild); Translations: [Chronic kidney disease stage 3] Onset: 07-19-2022 05-05-2023 Chronic Coagulation and hemorrhagic disorders (1 source) Other primary thrombophilia; Translations: [OTHER PRIMARY THROMBOPHILIA] Onset: 11-13-2021 Chronic Congestive heart failure; nonhypertensive (6 sources) Acute exacerbation of chronic congestive heart failure; Translations: [Heart failure, unspecified] Onset: 01-16-2022 09-19-2020 Chronic Diabetes mellitus with complications (1 source) Type 2 diabetes mellitus with diabetic chronic kidney disease; Translations: [TYPE 2 DM W/DIABETIC CKD] Onset: 09-03-2022 Chronic Diabetes mellitus without complication (3 sources) Diabetes mellitus; Translations: [Type 2 diabetes mellitus without complications] Onset: 11-13-2021 11-10-2021 Chronic Disorders of lipid metabolism (5 sources) Pure hypercholesterolemia , unspecified; Translations: [Hyperlipidemia, unspecified] Onset: 01-09-2022 Chronic E Codes: Unspecified (1 source) Nosocomial condition; Translations: [NOSOCOMIAL CONDITION] Onset: 09-03-2022 Episodic Essential hypertension (7 sources) Hypertensive disorder; Translations: [Essential (primary) hypertension] Onset: 11-09-2021 11-10-2021 Chronic Fluid and electrolyte disorders (1 source) Hypokalemia; Translations: [HYPOKALEMIA] Onset: 07-19-2022 Episodic Heart valve disorders (4 sources) Nonrheumatic mitral (valve) insufficiency; Translations: [Rheumatic disorders of both mitral and tricuspid valves] Onset: 07-19-2022 Chronic Hypertension with complications and secondary hypertension (3 sources) Hypertensive heart and chronic kidney disease with heart failure and stage 1 through stage 4 chronic kidney disease, or unspecified chronic kidney disease; Translations: [Hypertensive heart disease with heart failure] Onset: 11-13-2021 Chronic Intestinal infection (2 sources) Enterocolitis due to Clostridium difficile, not specified as recurrent; Translations: [Other intestinal Escherichia coli infections] Onset: 07-19-2022 Episodic Menopausal disorders (13 sources) Menopausal and postmenopausal disorders; Translations: [Other specified menopausal and perimenopausal disorders] Onset: 04-20-2021 04-20-2021 Chronic Nutritional deficiencies (2 sources) Moderate protein-calorie malnutrition; Translations: [Vitamin D deficiency, unspecified] Onset: 01-11-2022 Chronic Other aftercare (1 source) alf (current) use of oral hypoglycemic drugs; Translations: [GROUP HOME USE ORAL HYPOGLYCEMIC DX] Onset: 09-03-2022 Episodic Other aftercare (1 source) Other custodial (current) drug therapy; Translations: [OTH SPORTS COORDINATOR CURRENT DRUG THERAPY] Onset: 09-03-2022 Episodic Other aftercare (1 source) alf (current) use of aspirin; Translations: [GROUP HOME CURRENT USE OF ASPIRIN] Onset: 09-03-2022 Episodic Other aftercare (1 source) alf (current) use of anticoagulants; Translations: [GROUP HOME CURRNT USE ANTICOAGULANTS] Onset: 08-25-2022 Episodic Other aftercare (4 sources) Encounter for therapeutic drug level monitoring; Translations: [ENC THERAPEUTC DRUG LEVL MONITORING] Onset: 07-24-2022 Episodic Other circulatory disease (2 sources) Personal history of other diseases of the circulatory system; Translations: [Personal history of other diseases of the circulatory system] Onset: 09-04-2022 Episodic Other connective tissue disease (2 sources) Repeated falls; Translations: [Repeated falls] Onset: 04-01-2023 Episodic Other diseases of kidney and ureters (2 sources) Disorder of kidney and ureter, unspecified; Translations: [Disorder of kidney and ureter, unspecified] Onset: 04-01-2023 Episodic Other lower respiratory disease (1 source) Dyspnea; Translations: [Dyspnea, unspecified] Episodic Other lower respiratory disease (1 source) Personal history of pneumonia (recurrent); Translations: [PERSONAL HX OF PNEUMONIA RECURRENT] Onset: 09-03-2022 Episodic Other nervous system disorders (1 source) Metabolic encephalopathy; Translations: [METABOLIC ENCEPHALOPATHY] Onset: 09-03-2022 Chronic Other nervous system disorders (2 sources) Other abnormalities of gait and mobility; Translations: [Other abnormalities of gait and mobility] Onset: 04-01-2023 Episodic Other nutritional; endocrine; and metabolic disorders (14 sources) Hypercalcemia; Translations: [Hypercalcemia] Onset: 04-29-2023 Chronic Pneumonia (except that caused by tuberculosis or sexually transmitted disease) (4 sources) Pneumonia; Translations: [Pneumonia, unspecified organism] Onset: 07-05-2022 09-10-2020 Episodic Pulmonary heart disease (1 source) Pulmonary hypertension, unspecified; Translations: [PULMONARY HYPERTENSION UNSPECIFIED] Onset: 07-19-2022 Chronic Pulmonary heart disease (1 source) Pulmonary embolism; Translations: [Other pulmonary embolism without acute cor pulmonale] 09-10-2020 Episodic Residual codes; unclassified (1 source) Body mass index (BMI) 22.0-22.9, adult; Translations: [BODY MASS INDEX BMI 22.0-22.9 ADULT] Onset: 09-03-2022 Episodic Respiratory failure; insufficiency; arrest (adult) (1 source) Dependence on supplemental oxygen; Translations: [DEPENDENCE ON SUPPLEMENTAL OXYGEN] Onset: 09-03-2022 Chronic Respiratory failure; insufficiency; arrest (adult) (2 sources) Acute hypoxemic respiratory failure; Translations: [Acute respiratory failure with hypoxia] Onset: 09-03-2022 09-10-2020 Episodic Septicemia (except in labor) (5 sources) Sepsis; Translations: [Sepsis, unspecified organism] Onset: 08-19-2022 09-10-2020 Episodic Unclassified (1 source) PERSONAL HISTORY OF COVID-19; Translations: [PERSONAL HISTORY OF COVID-19] Onset: 09-03-2022 Unclassified (1 source) CONTACT W/AND (SUSP) EXPOS COVID-19; Translations: [CONTACT W/AND (SUSP) EXPOS COVID-19] Onset: 09-03-2022 Unclassified (1 source) CHRN KIDNEY DISEASE STG 3 UNSP; Translations: [CHRN KIDNEY DISEASE STG 3 UNSP] Onset: 09-03-2022 Unclassified (1 source) PRIMARY OSTEOARTHRITS OT SPEC SITE; Translations: [PRIMARY OSTEOARTHRITS OT SPEC SITE] Onset: 05-24-2022 Viral infection (1 source) Disease caused by 2019-nCoV; Translations: [COVID-19] 09-19-2020 Episodic Past or Other Problems Problem Classification Problem Date Documented Da te Episodic/Chronic Deficiency and other anemia (1 source) Anemia, unspecified; Translations: [ANEMIA UNSPECIFIED] Onset: 01-11-2022 Episodic Diabetes mellitus without complication (1 source) Other abnormal glucose; Translations: [OTHER ABNORMAL GLUCOSE] Onset: 01-11-2022 Episodic Malaise and fatigue (1 source) Weakness; Translations: [WEAKNESS] Onset: 05-21-2022 Episodic Other gastrointestinal disorders (1 source) Full incontinence of feces; Translations: [FULL INCONTINENCE OF FECES] Onset: 01-16-2022 Episodic Other non-traumatic joint disorders (4 sources) Other instability, left wrist; Translations: [OTHER INSTABILITY LEFT WRIST] Onset: 05-23-2022 Episodic Other non-traumatic joint disorders (2 sources) Pain in left wrist; Translations: [PAIN IN LEFT WRIST] Onset: 05-30-2022 Episodic Other screening for suspected conditions (not mental disorders or infectious disease) (3 sources) Patient encounter status; Translations: [Encounter for screening for osteoporosis] Onset: 01-11-2022 Episodic Residual codes; unclassified (1 source) Estrogen receptor positive status [ER+]; Translations: [ESTROGEN RECEPTOR POSITIVE STATUS] Onset: 01-10-2022 Episodic Syncope (4 sources) Syncope and collapse; Translations: [SYNCOPE AND COLLAPSE] Onset: 01-11-2022 Episodic Results Test Name Value Interpretation Reference Range Facility CBC W Auto Differential pane l (Bld)on 08-19-2023 Basophils (Bld) [#/Vol] 0.06 10*3/uL Normal <0.11 [facility] Comment on above: Order Comment: Speci men Type: BLOOD SPECIMENOrdering Facility: [facility] Address: [address] [place] [address] Performed By: #### 5 7021-8 ####[facility]CL[facility] [id number] [place] [address] Basophils/100 WBC (Bld) 0.6 % Normal [facility] Comment on above: Order Comment: Speci men Type: BLOOD SPECIMENOrdering Facility: [facility] Address: [address] [place] [address] Performed By: #### 5 7021-8 ####[facility] [id number] [place] [address] Differential cell count method Nom (Bld) Auto Normal [facility] Comment on above: Order Comment: Speci men Type: BLOOD SPECIMENOrdering Facility: [facility] Address: [address] [place] [address] Performed By: #### 5 7021-8 ####[facility] [id number] [place] [address] Eosinophils (Bld) [#/Vol] 0.16 10*3/uL Normal <0.46 [facility] Comment on above: Order Comment: Speci men Type: BLOOD SPECIMENOrdering Facility: [facility] Address: [address] [place] [address] Performed By: #### 5 7021-8 ####[facility] [id number] [place] [address] Eosinophils/100 WBC (Bld) 1.6 % Normal [facility] Comment on above: Order Comment: Speci men Type: BLOOD SPECIMENOrdering Facility: [facility] Address: [address] [place] [address] Performed By: #### 5 7021-8 ####[facility] [id number] [place] [address] Erythrocyte distribution width (RBC) [Ratio] 12.4 % Normal 11.5-15.0 [facility] Comment on above: Order Comment: Speci men Type: BLOOD SPECIMENOrdering Facility: [facility] Address: [address] [place] [address] Performed By: #### 5 7021-8 ####[facility] [id number] [place] [address] Hematocrit (Bld) [Volume fraction] 39.6 % Normal 36.0-46.0 [facility] Comment on above: Order Comment: Speci men Type: BLOOD SPECIMENOrdering Facility: [facility] Address: [address] [place] [address] Performed By: #### 5 7021-8 ####[facility] [id number] [place] [address] Hemoglobin (Bld) [Mass/Vol] 13.0 g/dL Normal 11.5-15.5 [facility] Comment on above: Order Comment: Speci men Type: BLOOD SPECIMENOrdering Facility: [facility] Address: [address] [place] [address] Performed By: #### 5 7021-8 ####[facility] LABIA [id number] [place] [address] Immature granulocytes (Bld) [#/Vol] 0.03 10*3/uL Normal <0.10 [facility] Comment on above: Order Comment: Speci men Type: BLOOD SPECIMENOrdering Facility: [facility] Address: [address] [place] [address] Performed By: #### 5 7021-8 ####[facility]IA [id number] [place] [address] Immature granulocytes/100 WBC (Bld) 0.3 % Normal [facility] Comment on above: Order Comment: Speci men Type: BLOOD SPECIMENOrdering Facility: [facility] Address: [address] [place] [address] Performed By: #### 5 7021-8 ####[facility] [id number] [place] [address] Lymphocytes (Bld) [#/Vol] 1.62 10*3/uL Normal 1.00-4.00 [facility] Comment on above: Order Comment: Speci men Type: BLOOD SPECIMENOrdering Facility: [facility] Address: [address] [place] [address] Performed By: #### 5 7021-8 ####[facility] [id number] [place] [address] Lymphocytes/100 WBC (Bld) 16.2 % Normal [facility] Comment on above: Order Comment: Speci men Type: BLOOD SPECIMENOrdering Facility: [facility] Address: [address] [place] [address] Performed By: #### 5 7021-8 ####[facility] [id number] [place] [address] MCH (RBC) [Entitic mass] 30.9 pg Normal 26.0-34.0 [facility] Comment on above: Order Comment: Speci men Type: BLOOD SPECIMENOrdering Facility: [facility] Address: [address] [place] [address] Performed By: #### 5 7021-8 ####[facility] [id number] [place] [address] MCHC (RBC) [Mass/Vol] 32.8 g/dL Normal 30.5-36.0 [facility] Comment on above: Order Comment: Speci men Type: BLOOD SPECIMENOrdering Facility: [facility] Address: [address] [place] [address] Performed By: #### 5 7021-8 ####[facility] [id number] [place] [address] MCV (RBC) [Entitic vol] 94.1 fL Normal 80.0-100.0 [facility] Comment on above: Order Comment: Speci men Type: BLOOD SPECIMENOrdering Facility: [facility] Address: [address] [place] [address] Performed By: #### 5 7021-8 ####[facility] [id number] [place] [address] Monocytes (Bld) [#/Vol] 1.04 10*3/uL High <0.87 [facility] Comment on above: Order Comment: Speci men Type: BLOOD SPECIMENOrdering Facility: [facility] Address: [address] [place] [address] Performed By: #### 5 7021-8 ####[facility] [id number] [place] [address] Monocytes/100 WBC (Bld) 10.4 % Normal [facility] Comment on above: Order Comment: Speci men Type: BLOOD SPECIMENOrdering Facility: [facility] Address: [address] [place] [address] Performed By: #### 5 7021-8 ####[facility] [id number] [place] [address] Neutrophils (Bld) [#/Vol] 7.12 10*3/uL Normal 1.45-7.50 [facility] Comment on above: Order Comment: Speci men Type: BLOOD SPECIMENOrdering Facility: [facility] Address: [address] [place] [address] Performed By: #### 5 7021-8 ####[facility] [id number] [place] [address] Neutrophils/100 WBC (Bld) 70.9 % Normal [facility] Comment on above: Order Comment: Speci men Type: BLOOD SPECIMENOrdering Facility: [facility] Address: [address] [place] [address] Performed By: #### 5 7021-8 ####[facility] [id number] [place] [address] Nucleated RBC (Bld) [#/Vol] 10*3/uL Normal <0.01 [facility] Comment on above: Order Comment: Speci men Type: BLOOD SPECIMENOrdering Facility: [facility] Address: [address] [place] [address] Performed By: #### 5 7021-8 ####[facility] [id number] [place] [address] Nucleated RBC/100 WBC (Bld) [Ratio] 0.0 /100 WBC Normal [facility] Comment on above: Order Comment: Speci men Type: BLOOD SPECIMENOrdering Facility: [facility] Address: [address] [place] [address] Performed By: #### 5 7021-8 ####[facility] [id number] [place] [address] Platelet mean volume (Bld) [Entitic vol] 10.7 fL Normal 9.0-12.7 [facility] Comment on above: Order Comment: Speci men Type: BLOOD SPECIMENOrdering Facility: [facility] Address: [address] [place] [address] Performed By: #### 5 7021-8 ####[facility] [id number] [place] [address] Platelets (Bld) [#/Vol] 252 10*3/uL Normal 150-400 [facility] Comment on above: Order Comment: Speci men Type: BLOOD SPECIMENOrdering Facility: [facility] Address: [address] [place] [address] Performed By: #### 5 7021-8 ####[facility] [id number] [place] [address] RBC (Bld) [#/Vol] 4.21 10*6/uL Normal 3.90-5.20 [facility] Comment on above: Order Comment: Speci men Type: BLOOD SPECIMENOrdering Facility: [facility] Address: [address] [place] [address] Performed By: #### 5 7021-8 ####[facility] LABCLIA [id number] [place] [address] WBC (Bld) [#/Vol] 10.03 10*3/uL Normal 3.70-11.00 [facility] Comment on above: Order Comment: Speci men Type: BLOOD SPECIMENOrdering Facility: [facility] Address: [place] [address] Performed By: #### 5 7021-8 ####[facility] LABCLIA [id number] [place] [address] CNOVSPon 08-19-2023 CNOVSP Visit (SP) Office ([facility]) -- ANDREW BARROS ([id number]) 1945 F Date Time Provider Department 08/19/23 1:00 PM SANDEEP LENZ During your visit today, we recorded the following information about you: Temperature Pulse Respiration Blood pressure 97.7 degrees 67/minute 16/minute 148/65 Weight Height 61.8 kg 1.626 m Sandeep Lenz MD 08/20/2023 7:07 AM Signed [facility] NAME: Andrew Barros CLINIC NO.: [id number] DATE OF SERVICE: August 19, 2023 (Eduardo) Some elements in this clinic note that are critical to medical decision making have been carefully reviewed and included from a prior clinic note dated: May 20, 2023 (Eduardo) Referring Provider: Eduardo Sharpe Additional Clinicians involved in Andrew Barros's care: DIAGNOSIS: History of Breast Cancer ASSESSMENT: 77 year old woman with Left breast upper outer quadrant, invasive ductal carcinoma, ER postive, NC positive, 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 Diagnosed 2018. Oncotype testing recurrence score 12 Stopped anticoagulation due to intracranial hemorrhage in 10/2021. Mildly elevated calcium - will send to nephrology. Bone scan negative for osseous mets. Breast tumor markers are negative, PTH-RP remains elevated 3.01 May 2023. Stopped taking Calcium - level normalized. PLAN: Continue Arimidex. Following with PCP for hypercalcemia Could consider Endocrine / Nephrology consult if Calcium and PTH-RP remain elevated. RTC in 3 months - repeat labs Exam same day. Still needs to schedule mammography prior to next visit. May stop Arimidex after next visit. HPI: Case History: 09/26/2018 - Started arimidex 09/10/2018 - Completed radiation 06/05/2018 - L breast lumpectomy and SNB Updated Visit, August 19, 2023: Here with daughter Sugey. Didn't see nephrology as kidney function is stable. May still need to see endocrine if Calcium is elevated after having stopped her calcium intake from last visit. However, as labs finally arrived, results did not indicate a need for this follow up. Didn't schedule mammograms yet and will need to. Updated Visit, May 20, 2023: 05/02/2023 Bone Scan - negative for osseous mets. Sugey her daughter is with her. Unclear etiology of hypercalcemia but likely due to renal failure. She is otherwise doing fine. Updated Visit, April 29, 2023: Here with her daughter Janki today. Doing well. Hypercalcemia Getting worked up for ARF. Updated Visit, January 08, 2022: Mammogram results pending from 01/05/2022 11/14/2021 had intracranial hemorrhage with intracerebral hematoma in the right tempora lobe due to HTN and warfarin. Anticoagulation was for A-fib. Had been On Xarelto up until 3 months prior to hemorrhage but needed something cheaper. Updated Visit, July 21, 2021: Andrew Barros returns for scheduled follow-up. Since her last visit there has been no significant medical changes. She has been on Arimidex for 3 years and is tolerating it well. She does experience hot flashes. She denies any muscle and joint aches. She remains on calcium, vitamin D plus a multivitamin. She offers no new complaints today. Overall, she is doing well with no new issues, problems or concerns. 04/24/2021 DEXA scan Impression: World Health Organization classification: Normal-low fracture risk. Updated Visit, April 20, 2021: Andrew is a 75 year old female who presents for her annual visit and to transition her care from her prior physician Dr. Herman. She tells me that her from COVID-19 in 08/2020 age 80. She also had COVID and was hospitalized but (obviously) recovered. The patient remains on Arimidex and is tolerating it well. She has no symptoms or concerns for recurrence. At this time she will continue with that as planned but will also need bone density and to start on Vit-D + Calcium. Mammograms at [facility] on 01/04/2021 Bi-Rads 2 benign. REVIEW OF SYSTEMS Per HPI and otherwise negative by full review of organ systems. ECOG PERFORMANCE STATUS: 0 PHYSICAL EXAMINATION: Vitals: BP 148/65 Pulse 67 Temp (Src) 97.7 (Temporal) Resp 16 Ht 5' 4.016 (1.63m) Wt 136 lb 3.2 oz (61.8kg) SpO2 97% BMI 23.37 kg/(m2). Body surface area is 1.67 meters squared. Exam limited to gross visualization where appropriate. Gen.: This is an age-appropriate patient in no acute distress. Head: Appears atraumatic with no visible lesions. Eyes: Pupils equally round and reactive to light, extraocular muscles are intact. Neck: Supple. Respiratory: Appears to be respiring comfortably. N (more content not included)... Normal [facility] Rita 08-19-2023 CNPN Telephone ([facility]) -- ANDREW BARROS ([id number]) 1945 F Date Time Provider Department 08/19/23 CLEMENTE SRIVASTAVA HEMASA During your visit today, we recorded the following information about you: Clemente Srivastava RN 08/19/2023 2:47 PM Signed ----- Message from Sandeep Lenz MD sent at 08/19/2023 2:33 PM EST ----- Calcium janki normal. Kidney function is stable Clemente Srivastava RN 08/19/2023 2:47 PM Signed Pt aware of [facility] [employer] [facility]'s message. She denies any additional questions, needs or concerns at this time. Clemente Srivastava RN Allergies As of Date: 08/19/2023 Noted Allergy Reaction HKKOGYS-SCC-FIL REDUCTASE INHIBIT*01/21/2018 16 - Unknown Comments: Other reaction(s): AOF Date Reviewed: 08/19/2023 Reviewed by: Joselo Nadine - Fully Assessed Reason for Visit: Results [95] Prescriptions as of 08/19/2023 - anastrozole (ARIMIDEX) 1 mg tablet TAKE 1 TABLET BY MOUTH EVERY DAY - doxazosin (CARDURA) 4 mg tablet Take 4 mg by mouth daily at bedtime. - aspirin (ASPIR-81 ORAL) Take 81 mg by mouth once daily. - ferrous sulfate 325 mg (65 mg iron) tablet Take 325 mg by mouth once daily. - amLODIPine (NORVASC) 2.5 mg tablet Take 5 mg by mouth twice daily. - metFORMIN (GLUCOPHAGE) 500 mg tablet Take 500 mg by mouth twice daily. - bimatoprost (LUMIGAN) 0.01 % drop ophthalmic drops 1 Drop as directed. - propafenone SR (RYTHMOL SR) 325 mg 12 hr capsule Take 325 mg by mouth q 12 HR. - potassium chloride (K-TAB) 10 mEq tablet Potassium Chloride Active 10 MEQ PO Daily September 22, 2020 12:10pm See your primary care provider or cardiology for refills - omeprazole (PRILOSEC) 40 mg capsule Take 40 mg by mouth once daily. - calcium-cholecalciferol, D3, (OSCAL+D 250) 250-125 mg-unit per tablet Take 1 tablet by mouth twice daily. - rivaroxaban (XARELTO) 20 mg tablet Take 20 mg by mouth daily with dinner. - ezetimibe (ZETIA) 10 mg tablet Take 10 mg by mouth once daily. - carvedilol (COREG) 25 mg tablet Take 25 mg by mouth as directed. Takes 1 1/2 tablet 2x a day - Multivitamin capsule Take 1 capsule by mouth once daily. - furosemide (LASIX) 40 mg tablet Take 40 mg by mouth once daily. Problem List As Of Date 08/19/2023 Noted Resolved Malignant neoplasm of upper-outer quadrant of l*06/12/2018 Other specified menopausal and perimenopausal d*04/20/2021 Hypercalcemia [E83.52] 04/29/2023 Stage 3 chronic kidney disease, unspecified whe*05/05/2023 Encounter Status:Closed by CLEMENTE SRIVASTAVA on 08/19/23 Normal [facility] Calcium.ionized [Moles/Vol]o n 08-19-2023 Calcium.ionized (Bld) [Mass/Vol] 1.20 mmol/L Normal 1.08-1.30 [facility] Comment on above: Order Comment: Speci men Type: BLOOD SPECIMENOrdering Facility: [facility] Address: [address] [place] [address] Performed By: #### 1 995-0 ####[facility] LABCLIA [id number] [place] [address] [place] Calcium.ionized adjusted to pH 7.4 (Bld) [Moles/Vol] 1.19 mmol/L Normal 1.08-1.30 [facility] Comment on above: Order Comment: Sosai men Type: BLOOD SPECIMENOrdering Facility: [facility] Address: [address] [place] [address] Performed By: #### 1 995-0 ####[facility] LABCLIA [id number] [place] [id number] [address] [place] Comprehensive metabolic 2000 panelon 08-19-2023 Albumin [Mass/Vol] 4.4 g/dL Normal 3.9-4.9 [facility] Comment on above: Order Comment: Speci men Type: BLOOD SPECIMENOrdering Facility: [facility] Address: [address] [place] [address] Performed By: #### 2 4323-8 ####[facility]CLIA [id number] [place] [address] ALP [Catalytic activity/Vol] 88 U/L Normal 34-123 [facility] Comment on above: Order Comment: Speci men Type: BLOOD SPECIMENOrdering Facility: [facility] Address: [address] [place] [address] Performed By: #### 2 4323-8 ####[facility]CL[facility] [id number] [place] [address] ALT [Catalytic activity/Vol] 8 U/L Normal 7-38 [facility] Comment on above: Order Comment: Speci men Type: BLOOD SPECIMENOrdering Facility: [facility] Address: [address] [place] [address] Performed By: #### 2 4323-8 ####[facility]CLIA [id number] [place] [address] Anion gap [Moles/Vol] 11 mmol/L Normal 9-18 [facility] Comment on above: Order Comment: Speci men Type: BLOOD SPECIMENOrdering Facility: [facility] Address: [address] [place] [address] Performed By: #### 2 4323-8 ####[facility]CLIA [id number] [place] [address] AST [Catalytic activity/Vol] 13 U/L Normal 13-35 [facility] Comment on above: Order Comment: Speci men Type: BLOOD SPECIMENOrdering Facility: [facility] Address: [address] [place] [address] Performed By: #### 2 4323-8 ####[facility] [id number] [place] [address] Bilirubin [Mass/Vol] 0.3 mg/dL Normal 0.2-1.3 [facility] Comment on above: Order Comment: Speci men Type: BLOOD SPECIMENOrdering Facility: [facility] Address: [address] [place] [address] Performed By: #### 2 4323-8 ####[facility] [id number] [place] [address] Calcium [Mass/Vol] 9.6 mg/dL Normal 8.5-10.2 [facility] Comment on above: Order Comment: Speci men Type: BLOOD SPECIMENOrdering Facility: [facility] Address: [address] [place] [address] Performed By: #### 2 4323-8 ####[facility] [id number] [place] [address] Chloride [Moles/Vol] 98 mmol/L Normal 97-105 [facility] Comment on above: Order Comment: Speci men Type: BLOOD SPECIMENOrdering Facility: [facility] Address: [address] [place] [address] Performed By: #### 2 4323-8 ####[facility] [id number] [place] [address] CO2 [Moles/Vol] 30 mmol/L Normal 22-30 [facility] Comment on above: Order Comment: Speci men Type: BLOOD SPECIMENOrdering Facility: [facility] Address: [address] [place] [address] Performed By: #### 2 4323-8 ####[facility] [id number] [place] [address] Creatinine [Mass/Vol] 1.27 mg/dL High 0.58-0.96 [facility] Comment on above: Order Comment: Anastacio bonilla Type: BLOOD SPECIMENOrdering Facility: [facility] Address: [place] [address] Performed By: #### 2 4323-8 ####[facility] [id number] [place] [address] Creatinine and Glomerular filtration rate.predicted panel (S/P/Bld) 43 mL/min/1.73m??? Low >=60 [facility] Comment on above: Order Comment: Anastacio bonilla Type: BLOOD SPECIMENOrdering Facility: [facility] Address: [address] [place] [address] Result Comment: Sugar mated Glomerular Filtration Rate (eGFR) is calculated using the 2020 CKD-EPI creatinine equation. This equation utilizes serum creatinine, sex, and age as parameters. The creatinine assay has traceable calibration to isotope dilution-mass spectrometry. Refer to KDIGO guidelines for clinical interpretation. In patients with unstable renal function, e.g. those with acute kidney injury, the eGFR may not accurately reflect actual GFR. Performed By: #### 2 4323-8 ####[facility] [id number] [place] [address] Glucose [Mass/Vol] 94 mg/dL Normal 74-99 [facility] Comment on above: Order Comment: Anastacio bonilla Type: BLOOD SPECIMENOrdering Facility: [facility] Address: [place] [address] Result Comment: The [place] Diabetes [employer] (ADA) provides guidance for cutoff values for fasting glucose and random glucose. The ADA defines fasting as no caloric intake for at least 8 hours. Fasting plasma glucose results between 100 to 125 mg/dL indicate increased risk for diabetes (prediabetes). Fasting plasma glucose results greater than or equal to 126 mg/dL meet the criteria for diagnosis of diabetes. In the absence of unequivocal hyperglycemia, results should be confirmed by repeat testing. In a patient with classic symptoms of hyperglycemia or hyperglycemic crisis, random plasma glucose results greater than or equal to 200 mg/dL meet the criteria for diagnosis of diabetes. Reference: Standards of Medical Care in Diabetes 2016, [place] [employer]. Diabetes Care. 2016.39(Suppl 1). Performed By: #### 2 4323-8 ####[facility] [id number] [place] [address] Potassium [Moles/Vol] 3.7 mmol/L Normal 3.7-5.1 [facility] Comment on above: Order Comment: Speci men Type: BLOOD SPECIMENOrdering Facility: [facility] Address: [address] [place] [address] Performed By: #### 2 4323-8 ####[facility] [id number] [place] [address] Protein [Mass/Vol] 7.3 g/dL Normal 6.3-8.0 [facility] Comment on above: Order Comment: Speci men Type: BLOOD SPECIMENOrdering Facility: [facility] Address: [address] [place] [address] Performed By: #### 2 4323-8 ####[facility] [id number] [place] [address] Sodium [Moles/Vol] 139 mmol/L Normal 136-144 [facility] Comment on above: Order Comment: Speci men Type: BLOOD SPECIMENOrdering Facility: [facility] Address: [address] [place] [address] Performed By: #### 2 4323-8 ####[facility] [id number] [place] [address] Urea nitrogen [Mass/Vol] 28 mg/dL High 7-21 [facility] Comment on above: Order Comment: Speci men Type: BLOOD SPECIMENOrdering Facility: [facility] Address: [address] [place] [address] Performed By: #### 2 4323-8 ####[facility] [id number] [place] [address] CBC W Auto Differential pane l (Bld)on 2023 Basophils (Bld) [#/Vol] 0.06 10*3/uL Normal <0.11 [facility] Comment on above: Order Comment: Speci men Type: BLOOD SPECIMENOrdering Facility: [facility] Address: [address] [place] [address] Performed By: #### 5 7021-8 ####[facility] [id number] [place] [address] Basophils/100 WBC (Bld) 0.6 % Normal [facility] Comment on above: Order Comment: Speci men Type: BLOOD SPECIMENOrdering Facility: [facility] Address: [address] [place] [address] Performed By: #### 5 7021-8 ####[facility] [id number] [place] [address] Differential cell count method Nom (Bld) Auto Normal [facility] Comment on above: Order Comment: Speci men Type: BLOOD SPECIMENOrdering Facility: [facility] Address: [address] [place] [address] Performed By: #### 5 7021-8 ####[facility] [id number] [place] [address] Eosinophils (Bld) [#/Vol] 0.14 10*3/uL Normal <0.46 [facility] Comment on above: Order Comment: Speci men Type: BLOOD SPECIMENOrdering Facility: [facility] Address: [address] [place] [address] Performed By: #### 5 7021-8 ####[facility] [id number] [place] [address] Eosinophils/100 WBC (Bld) 1.5 % Normal [facility] Comment on above: Order Comment: Speci men Type: BLOOD SPECIMENOrdering Facility: [facility] Address: [address] [place] [address] Performed By: #### 5 7021-8 ####[facility] [id number] [place] [address] Erythrocyte distribution width (RBC) [Ratio] 12.5 % Normal 11.5-15.0 [facility] Comment on above: Order Comment: Speci men Type: BLOOD SPECIMENOrdering Facility: [facility] Address: [address] [place] [address] Performed By: #### 5 7021-8 ####[facility] [id number] [place] [address] Hematocrit (Bld) [Volume fraction] 40.6 % Normal 36.0-46.0 [facility] Comment on above: Order Comment: Speci men Type: BLOOD SPECIMENOrdering Facility: [facility] Address: [address] [place] [address] Performed By: #### 5 7021-8 ####[facility] [id number] [place] [address] Hemoglobin (Bld) [Mass/Vol] 13.1 g/dL Normal 11.5-15.5 [facility] Comment on above: Order Comment: Speci men Type: BLOOD SPECIMENOrdering Facility: [facility] Address: [address] [place] [address] Performed By: #### 5 7021-8 ####[facility] [id number] [place] [address] Immature granulocytes (Bld) [#/Vol] 0.03 10*3/uL Normal <0.10 [facility] Comment on above: Order Comment: Speci men Type: BLOOD SPECIMENOrdering Facility: [facility] Address: [address] [place] [address] Performed By: #### 5 7021-8 ####[facility] [id number] [place] [address] Immature granulocytes/100 WBC (Bld) 0.3 % Normal [facility] Comment on above: Order Comment: Speci men Type: BLOOD SPECIMENOrdering Facility: [facility] Address: [address] [place] [address] Performed By: #### 5 7021-8 ####[facility] [id number] [place] [address] Lymphocytes (Bld) [#/Vol] 1.44 10*3/uL Normal 1.00-4.00 [facility] Comment on above: Order Comment: Speci men Type: BLOOD SPECIMENOrdering Facility: [facility] Address: [address] [place] [address] Performed By: #### 5 7021-8 ####[facility] [id number] [place] [address] Lymphocytes/100 WBC (Bld) 15.2 % Normal [facility] Comment on above: Order Comment: Speci men Type: BLOOD SPECIMENOrdering Facility: [facility] Address: [address] [place] [address] Performed By: #### 5 7021-8 ####[facility] [id number] [place] [address] MCH (RBC) [Entitic mass] 31.2 pg Normal 26.0-34.0 [facility] Comment on above: Order Comment: Speci men Type: BLOOD SPECIMENOrdering Facility: [facility] Address: [address] [place] [address] Performed By: #### 5 7021-8 ####[facility] [id number] [place] [address] MCHC (RBC) [Mass/Vol] 32.3 g/dL Normal 30.5-36.0 [facility] Comment on above: Order Comment: Speci men Type: BLOOD SPECIMENOrdering Facility: [facility] Address: [address] [place] [address] Performed By: #### 5 7021-8 ####[facility] [id number] [place] [address] MCV (RBC) [Entitic vol] 96.7 fL Normal 80.0-100.0 [facility] Comment on above: Order Comment: Speci men Type: BLOOD SPECIMENOrdering Facility: [facility] Address: [address] [place] [address] Performed By: #### 5 7021-8 ####[facility] [id number] [place] [address] Monocytes (Bld) [#/Vol] 0.82 10*3/uL Normal <0.87 [facility] Comment on above: Order Comment: Speci men Type: BLOOD SPECIMENOrdering Facility: [facility] Address: [address] [place] [address] Performed By: #### 5 7021-8 ####[facility] [id number] [place] [address] Monocytes/100 WBC (Bld) 8.7 % Normal [facility] Comment on above: Order Comment: Speci men Type: BLOOD SPECIMENOrdering Facility: [facility] Address: [address] [place] [address] Performed By: #### 5 7021-8 ####[facility] [id number] [place] [address] Neutrophils (Bld) [#/Vol] 6.97 10*3/uL Normal 1.45-7.50 [facility] Comment on above: Order Comment: Speci men Type: BLOOD SPECIMENOrdering Facility: [facility] Address: [address] [place] [address] Performed By: #### 5 7021-8 ####[facility] [id number] [place] [address] Neutrophils/100 WBC (Bld) 73.7 % Normal [facility] Comment on above: Order Comment: Speci men Type: BLOOD SPECIMENOrdering Facility: [facility] Address: [address] [place] [address] Performed By: #### 5 7021-8 ####[facility] [id number] [place] [address] Nucleated RBC (Bld) [#/Vol] 10*3/uL Normal <0.01 [facility] Comment on above: Order Comment: Speci men Type: BLOOD SPECIMENOrdering Facility: [facility] Address: [address] [place] [address] Performed By: #### 5 7021-8 ####[facility] [id number] [place] [address] Nucleated RBC/100 WBC (Bld) [Ratio] 0.0 /100 WBC Normal [facility] Comment on above: Order Comment: Speci men Type: BLOOD SPECIMENOrdering Facility: [facility] Address: [address] [place] [address] Performed By: #### 5 7021-8 ####[facility] [id number] [place] [address] Platelet mean volume (Bld) [Entitic vol] 11.0 fL Normal 9.0-12.7 [facility] Comment on above: Order Comment: Speci men Type: BLOOD SPECIMENOrdering Facility: [facility] Address: [address] [place] [address] Performed By: #### 5 7021-8 ####[facility] [id number] [place] [address] Platelets (Bld) [#/Vol] 238 10*3/uL Normal 150-400 [facility] Comment on above: Order Comment: Speci men Type: BLOOD SPECIMENOrdering Facility: [facility] Address: [address] [place] [address] Performed By: #### 5 7021-8 ####[facility] [id number] [place] [address] RBC (Bld) [#/Vol] 4.20 10*6/uL Normal 3.90-5.20 [facility] Comment on above: Order Comment: Speci men Type: BLOOD SPECIMENOrdering Facility: [facility] Address: [facility] [place][note 2] [place] [address] Performed By: #### 5 7021-8 ####[facility] [id number] [place] [address] WBC (Bld) [#/Vol] 9.46 10*3/uL Normal 3.70-11.00 [facility] Comment on above: Order Comment: Speci men Type: BLOOD SPECIMENOrdering Facility: [facility] Address: [address] [place] [address] Performed By: #### 5 7021-8 ####[facility] [id number] [place] [address] Calcium.ionized [Moles/Vol]o n 07-02-2023 Calcium.ionized (Bld) [Mass/Vol] 1.23 mmol/L Normal 1.08-1.30 [facility] Comment on above: Order Comment: Speci men Type: BLOOD SPECIMEN [facility] Address: [address] [place] [address] Performed By: #### 1 995-0 #### [facility] [id number] [address] [place] [address] [place] Calcium.ionized adjusted to pH 7.4 (Bld) [Moles/Vol] 1.20 mmol/L Normal 1.08-1.30 [facility] Comment on above: Order Comment: Speci men Type: BLOOD SPECIMEN [facility] Address: [address] [place] [address] Performed By: #### 1 995-0 #### [facility] [id number] [address] [place] [address] [place] Comprehensive metabolic 2000 panelon 07-02-2023 Albumin [Mass/Vol] 4.5 g/dL Normal 3.9-4.9 [facility] Comment on above: Order Comment: Speci men Type: BLOOD SPECIMENOrdering Facility: [facility] Address: [address] [place] [address] Performed By: #### 2 4323-8 ####[facility] [id number] [place] [address] ALP [Catalytic activity/Vol] 89 U/L Normal 34-123 [facility] Comment on above: Order Comment: Speci men Type: BLOOD SPECIMENOrdering Facility: [facility] Address: [address] [place] [address] Performed By: #### 2 4323-8 ####[facility] [id number] [place] [address] ALT [Catalytic activity/Vol] 10 U/L Normal 7-38 [facility] Comment on above: Order Comment: Speci men Type: BLOOD SPECIMENOrdering Facility: [facility] Address: [address] [place] [address] Performed By: #### 2 4323-8 ####[facility] [id number] [place] [address] Anion gap [Moles/Vol] 15 mmol/L Normal 9-18 [facility] Comment on above: Order Comment: Speci men Type: BLOOD SPECIMENOrdering Facility: [facility] Address: [address] [place] [address] Performed By: #### 2 4323-8 ####[facility] [id number] [place] [address] AST [Catalytic activity/Vol] 14 U/L Normal 13-35 [facility] Comment on above: Order Comment: Speci men Type: BLOOD SPECIMENOrdering Facility: [facility] Address: [address] [place] [address] Performed By: #### 2 4323-8 ####[facility] [id number] [place] [address] Bilirubin [Mass/Vol] 0.4 mg/dL Normal 0.2-1.3 [facility] Comment on above: Order Comment: Speci men Type: BLOOD SPECIMENOrdering Facility: [facility] Address: [address] [place] [address] Performed By: #### 2 4323-8 ####[facility] [id number] [place] [address] Calcium [Mass/Vol] 9.9 mg/dL Normal 8.5-10.2 [facility] Comment on above: Order Comment: Speci men Type: BLOOD SPECIMENOrdering Facility: [facility] Address: [address] [place] [address] Performed By: #### 2 4323-8 ####[facility] [id number] [place] [address] Chloride [Moles/Vol] 99 mmol/L Normal 97-105 [facility] Comment on above: Order Comment: Speci men Type: BLOOD SPECIMENOrdering Facility: [facility] Address: [address] [place] [address] Performed By: #### 2 4323-8 ####[facility] [id number] [place] [address] CO2 [Moles/Vol] 28 mmol/L Normal 22-30 [facility] Comment on above: Order Comment: Speci men Type: BLOOD SPECIMENOrdering Facility: [facility] Address: [address] [place] [address] Performed By: #### 2 4323-8 ####[facility] [id number] [place] [address] Creatinine [Mass/Vol] 1.31 mg/dL High 0.58-0.96 [facility] Comment on above: Order Comment: Speci men Type: BLOOD SPECIMENOrdering Facility: [facility] Address: [address] [place] [address] Performed By: #### 2 4323-8 ####[facility] [id number] [place] [address] Creatinine and Glomerular filtration rate.predicted panel (S/P/Bld) 42 mL/min/1.73m??? Low >=60 [facility] Comment on above: Order Comment: Anastacio bonilla Type: BLOOD SPECIMENOrdering Facility: [facility] Address: [address] [place] [address] Result Comment: Sugar mated Glomerular Filtration Rate (eGFR) is calculated using the 2020 CKD-EPI creatinine equation. This equation utilizes serum creatinine, sex, and age as parameters. The creatinine assay has traceable calibration to isotope dilution-mass spectrometry. Refer to KDIGO guidelines for clinical interpretation. In patients with unstable renal function, e.g. those with acute kidney injury, the eGFR may not accurately reflect actual GFR. Performed By: #### 2 4323-8 ####[facility] [id number] [place] [address] Glucose [Mass/Vol] 183 mg/dL High 74-99 [facility] Comment on above: Order Comment: Anastacio bonilla Type: BLOOD SPECIMENOrdering Facility: [facility] Address: [address] [place] [address] Result Comment: The [place] Diabetes Association (ADA) provides guidance for cutoff values for fasting glucose and random glucose. The ADA defines fasting as no caloric intake for at least 8 hours. Fasting plasma glucose results between 100 to 125 mg/dL indicate increased risk for diabetes (prediabetes). Fasting plasma glucose results greater than or equal to 126 mg/dL meet the criteria for diagnosis of diabetes. In the absence of unequivocal hyperglycemia, results should be confirmed by repeat testing. In a patient with classic symptoms of hyperglycemia or hyperglycemic crisis, random plasma glucose results greater than or equal to 200 mg/dL meet the criteria for diagnosis of diabetes. Reference: Standards of Medical Care in Diabetes 2016, [place] [employer]. Diabetes Care. 2016.39(Suppl 1). Performed By: #### 2 4323-8 ####[facility] [id number] [place] [address] Potassium [Moles/Vol] 3.9 mmol/L Normal 3.7-5.1 [facility] Comment on above: Order Comment: Anastacio bonilla Type: BLOOD SPECIMENOrdering Facility: [facility] Address: [address] [place] [address] Performed By: #### 2 4323-8 ####[facility] [id number] [place] [address] Protein [Mass/Vol] 7.2 g/dL Normal 6.3-8.0 [facility] Comment on above: Order Comment: Speci men Type: BLOOD SPECIMENOrdering Facility: [facility] Address: [address] [place] [address] Performed By: #### 2 4323-8 ####[facility] [id number] [place] [address] Sodium [Moles/Vol] 142 mmol/L Normal 136-144 [facility] Comment on above: Order Comment: Speci men Type: BLOOD SPECIMENOrdering Facility: [facility] Address: [address] [place] [address] Performed By: #### 2 4323-8 ####[facility] [id number] [place] [address] Urea nitrogen [Mass/Vol] 29 mg/dL High 7-21 [facility] Comment on above: Order Comment: Speci men Type: BLOOD SPECIMENOrdering Facility: [facility] Address: [address] [place] [address] Performed By: #### 2 4323-8 ####[facility] [id number] [place] [address] CBC W Auto Differential pane l (Bld)on 05-21-2023 Basophils (Bld) [#/Vol] 0.07 10*3/uL <0.11 k/uL [facility] Basophils/100 WBC (Bld) 0.6 % [facility] Differential cell count method Nom (Bld) Auto [facility] Eosinophils (Bld) [#/Vol] 0.17 10*3/uL <0.46 k/uL [facility] Eosinophils/100 WBC (Bld) 1.6 % [facility] Erythrocyte distribution width (RBC) [Ratio] 12.8 % 11.5 - 15.0 % [facility] Hematocrit (Bld) [Volume fraction] 38.7 % 36.0 - 46.0 % [facility] Hemoglobin (Bld) [Mass/Vol] 13.0 g/dL 11.5 - 15.5 g/dL [facility] Immature granulocytes (Bld) [#/Vol] 0.04 10*3/uL <0.10 k/uL [facility] Immature granulocytes/100 WBC (Bld) 0.4 % [facility] Lymphocytes (Bld) [#/Vol] 1.74 10*3/uL 1.00 - 4.00 k/uL [facility] Lymphocytes/100 WBC (Bld) 16.0 % [facility] MCH (RBC) [Entitic mass] 31.7 pg 26.0 - 34.0 pg [facility] MCHC (RBC) [Mass/Vol] 33.6 g/dL 30.5 - 36.0 g/dL [facility] MCV (RBC) [Entitic vol] 94.4 fL 80.0 - 100.0 fL [facility] Monocytes (Bld) [#/Vol] 0.94 10*3/uL High <0.87 k/uL [facility] Monocytes/100 WBC (Bld) 8.6 % [facility] Neutrophils (Bld) [#/Vol] 7.94 10*3/uL High 1.45 - 7.50 k/uL [facility] Neutrophils/100 WBC (Bld) 72.8 % [facility] Nucleated RBC (Bld) [#/Vol] <0.01 k/uL [facility] Nucleated RBC/100 WBC (Bld) [Ratio] 0.0 /100 WBC [facility] Platelet mean volume (Bld) [Entitic vol] 12.1 fL 9.0 - 12.7 fL [facility] Platelets (Bld) [#/Vol] 293 10*3/uL 150 - 400 k/uL [facility] RBC (Bld) [#/Vol] 4.10 10*6/uL 3.90 - 5.2 0 m/uL [facility] WBC (Bld) [#/Vol] 10.90 10*3/uL 3.70 - 11.00 k/uL [facility] Rita 05-21-2023 CNPN Telephone (HEMASA) -- ANDREW BARROS ([id number]) 1945 F Date Time Provider Department 05/21/23 CLEMENTE SRIVASTAVA During your visit today, we recorded the following information about you: Clemente Srivastava RN 05/21/2023 10:18 AM Signed ----- Message from Sandeep Lenz MD sent at 05/21/2023 10:15 AM EDT ----- Calcium was improved. - kidney function stable. CBC was normal. Clemente Srivastava RN 05/21/2023 10:19 AM Signed Pt aware of results and denies any questions or concerns at this time. She was transferred to scheduling to set up Q 6 week lab appts as requested. Clemente Srivastava RN Allergies As of Date: 05/21/2023 Noted Allergy Reaction [id number] REDUCTASE INHIBIT*01/21/2018 16 - Unknown Comments: Other reaction(s): AOF Date Reviewed: 05/20/2023 Reviewed by: Arabella Cotter MA - Fully Assessed Reason for Visit: Results [95] Prescriptions as of 05/21/2023 - anastrozole (ARIMIDEX) 1 mg tablet TAKE 1 TABLET BY MOUTH EVERY DAY - doxazosin (CARDURA) 4 mg tablet Take 4 mg by mouth daily at bedtime. - aspirin (ASPIR-81 ORAL) Take 81 mg by mouth once daily. - ferrous sulfate 325 mg (65 mg iron) tablet Take 325 mg by mouth once daily. - amLODIPine (NORVASC) 2.5 mg tablet Take 5 mg by mouth twice daily. - metFORMIN (GLUCOPHAGE) 500 mg tablet Take 500 mg by mouth twice daily. - bimatoprost (LUMIGAN) 0.01 % drop ophthalmic drops 1 Drop as directed. - propafenone SR (RYTHMOL SR) 325 mg 12 hr capsule Take 325 mg by mouth q 12 HR. - potassium chloride (K-TAB) 10 mEq tablet Potassium Chloride Active 10 MEQ PO Daily September 22, 2020 12:10pm See your primary care provider or cardiology for refills - omeprazole (PRILOSEC) 40 mg capsule Take 40 mg by mouth once daily. - calcium-cholecalciferol, D3, (OSCAL+D 250) 250-125 mg-unit per tablet Take 1 tablet by mouth twice daily. - rivaroxaban (XARELTO) 20 mg tablet Take 20 mg by mouth daily with dinner. - ezetimibe (ZETIA) 10 mg tablet Take 10 mg by mouth once daily. - carvedilol (COREG) 25 mg tablet Take 25 mg by mouth as directed. Takes 1 1/2 tablet 2x a day - Multivitamin capsule Take 1 capsule by mouth once daily. - furosemide (LASIX) 40 mg tablet Take 40 mg by mouth once daily. 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 Other specified menopausal and perimenopausal d*04/20/2021 Hypercalcemia [E83.52] 04/29/2023 Stage 3 chronic kidney disease, unspecified whe*05/05/2023 Encounter Status:Closed by CLEMENTE SRIVASTAVA on 05/21/23 Normal [facility] Comprehensive metabolic 2000 panelon 05-21-2023 Albumin [Mass/Vol] 4.6 g/dL 3.9 - 4.9 g/dL [facility] ALP [Catalytic activity/Vol] 96 U/L 34 - 123 U/L [facility] ALT [Catalytic activity/Vol] 13 U/L 7 - 38 U/L [facility] Anion gap [Moles/Vol] 13 mmol/L 9 - 18 mmol/L [facility] AST [Catalytic activity/Vol] 18 U/L 13 - 35 U/L [facility] Bilirubin [Mass/Vol] 0.3 mg/dL 0.2 - 1 .3 mg/dL [facility] Calcium [Mass/Vol] 10.0 mg/dL 8.5 - 10. 2 mg/dL [facility] Chloride [Moles/Vol] 101 mmol/L 97 - 10 5 mmol/L [facility] CO2 [Moles/Vol] 26 mmol/L 22 - 30 mmol/L [facility] Creatinine [Mass/Vol] 1.32 mg/dL High 0.58 - 0.96 mg/dL [facility] Estimated Glomerular Filtration Rate 41 mL/min/1.73m Low >=60 mL/min/1.73 m [facility] Glucose [Mass/Vol] 119 mg/dL High 74 - 99 mg/dL [facility] Potassium [Moles/Vol] 4.1 mmol/L 3.7 - 5.1 mmol/L [facility] Protein [Mass/Vol] 7.6 g/dL 6.3 - 8.0 g/dL [facility] Sodium [Moles/Vol] 140 mmol/L 136 - 144 mmol/L [facility] Urea nitrogen [Mass/Vol] 32 mg/dL High 7 - 21 mg/dL [facility] CBC W Auto Differential pane l (Bld)on 05-20-2023 Basophils (Bld) [#/Vol] 0.07 10*3/uL Normal <0.11 [facility] Comment on above: Order Comment: Speci men Type: BLOOD SPECIMENOrdering Facility: [facility] Address: [address] [place] [address] Performed By: #### 5 7021-8 ####[facility] LABCL[facility] [id number] [place] [address] Basophils/100 WBC (Bld) 0.6 % Normal [facility] Comment on above: Order Comment: Speci men Type: BLOOD SPECIMENOrdering Facility: [facility] Address: [address] [place] [address] Performed By: #### 5 7021-8 ####[facility] [id number] [place] [address] Differential cell count method Nom (Bld) Auto Normal [facility] Comment on above: Order Comment: Speci men Type: BLOOD SPECIMENOrdering Facility: [facility] Address: [address] [place] [address] Performed By: #### 5 7021-8 ####[facility] [id number] [place] [address] Eosinophils (Bld) [#/Vol] 0.17 10*3/uL Normal <0.46 [facility] Comment on above: Order Comment: Speci men Type: BLOOD SPECIMENOrdering Facility: [facility] Address: [address] [address] Performed By: #### 5 7021-8 ####[facility] [id number] [place] [address] Eosinophils/100 WBC (Bld) 1.6 % Normal [facility] Comment on above: Order Comment: Speci men Type: BLOOD SPECIMENOrdering Facility: [facility] Address: [address] [address] Performed By: #### 5 7021-8 ####[facility] [id number] [place] [address] Erythrocyte distribution width (RBC) [Ratio] 12.8 % Normal 11.5-15.0 [facility] Comment on above: Order Comment: Speci men Type: BLOOD SPECIMENOrdering Facility: [facility] Address: [address] [address] Performed By: #### 5 7021-8 ####[facility] [id number] [place] [address] Hematocrit (Bld) [Volume fraction] 38.7 % Normal 36.0-46.0 [facility] Comment on above: Order Comment: Speci men Type: BLOOD SPECIMENOrdering Facility: [facility] Address: [address] [address] Performed By: #### 5 7021-8 ####[facility] [id number] [place] [address] Hemoglobin (Bld) [Mass/Vol] 13.0 g/dL Normal 11.5-15.5 [facility] Comment on above: Order Comment: Speci men Type: BLOOD SPECIMENOrdering Facility: [facility] Address: [address] [place] [address] Performed By: #### 5 7021-8 ####[facility] [id number] [place] [address] Immature granulocytes (Bld) [#/Vol] 0.04 10*3/uL Normal <0.10 [facility] Comment on above: Order Comment: Speci men Type: BLOOD SPECIMENOrdering Facility: [facility] Address: [address] [place] [address] Performed By: #### 5 7021-8 ####[facility] [id number] [place] [address] Immature granulocytes/100 WBC (Bld) 0.4 % Normal [facility] Comment on above: Order Comment: Speci men Type: BLOOD SPECIMENOrdering Facility: [facility] Address: [address] [place] [address] Performed By: #### 5 7021-8 ####[facility] [id number] [place] [address] Lymphocytes (Bld) [#/Vol] 1.74 10*3/uL Normal 1.00-4.00 [facility] Comment on above: Order Comment: Speci men Type: BLOOD SPECIMENOrdering Facility: [facility] Address: [address] [place] [address] Performed By: #### 5 7021-8 ####[facility] [id number] [place] [address] Lymphocytes/100 WBC (Bld) 16.0 % Normal [facility] Comment on above: Order Comment: Speci men Type: BLOOD SPECIMENOrdering Facility: [facility] Address: [address] [place] [address] Performed By: #### 5 7021-8 ####[facility] [id number] [place] [address] MCH (RBC) [Entitic mass] 31.7 pg Normal 26.0-34.0 [facility] Comment on above: Order Comment: Speci men Type: BLOOD SPECIMENOrdering Facility: [facility] Address: [address] [place] [address] Performed By: #### 5 7021-8 ####[facility] [id number] [place] [address] MCHC (RBC) [Mass/Vol] 33.6 g/dL Normal 30.5-36.0 [facility] Comment on above: Order Comment: Speci men Type: BLOOD SPECIMENOrdering Facility: [facility] Address: [address] [place] [address] Performed By: #### 5 7021-8 ####[facility] [id number] [place] [address] MCV (RBC) [Entitic vol] 94.4 fL Normal 80.0-100.0 [facility] Comment on above: Order Comment: Speci men Type: BLOOD SPECIMENOrdering Facility: [facility] Address: [address] [place] [address] Performed By: #### 5 7021-8 ####[facility] [id number] [place] [address] Monocytes (Bld) [#/Vol] 0.94 10*3/uL High <0.87 [facility] Comment on above: Order Comment: Speci men Type: BLOOD SPECIMENOrdering Facility: [facility] Address: [address] [place] [address] Performed By: #### 5 7021-8 ####[facility] [id number] [place] [address] Monocytes/100 WBC (Bld) 8.6 % Normal [facility] Comment on above: Order Comment: Speci men Type: BLOOD SPECIMENOrdering Facility: [facility] Address: [address] [place] [address] Performed By: #### 5 7021-8 ####[facility] [id number] [place] [address] Neutrophils (Bld) [#/Vol] 7.94 10*3/uL High 1.45-7.50 [facility] Comment on above: Order Comment: Speci men Type: BLOOD SPECIMENOrdering Facility: [facility] Address: [address] [place] [address] Performed By: #### 5 7021-8 ####[facility] [id number] [place] [address] Neutrophils/100 WBC (Bld) 72.8 % Normal [facility] Comment on above: Order Comment: Speci men Type: BLOOD SPECIMENOrdering Facility: [facility] Address: [address] [place] [address] Performed By: #### 5 7021-8 ####[facility] [id number] [place] [address] Nucleated RBC (Bld) [#/Vol] 10*3/uL Normal <0.01 [facility] Comment on above: Order Comment: Speci men Type: BLOOD SPECIMENOrdering Facility: [facility] Address: [address] [place] [address] Performed By: #### 5 7021-8 ####[facility] [id number] [place] [address] Nucleated RBC/100 WBC (Bld) [Ratio] 0.0 /100 WBC Normal [facility] Comment on above: Order Comment: Speci men Type: BLOOD SPECIMENOrdering Facility: [facility] Address: [address] [place] [address] Performed By: #### 5 7021-8 ####[facility]IA [id number] [place] [address] Platelet mean volume (Bld) [Entitic vol] 12.1 fL Normal 9.0-12.7 [facility] Comment on above: Order Comment: Speci men Type: BLOOD SPECIMENOrdering Facility: [facility] Address: [address] [address] Performed By: #### 5 7021-8 ####[facility] LABIA [id number] [place] [address] Platelets (Bld) [#/Vol] 293 10*3/uL Normal 150-400 [facility] Comment on above: Order Comment: Speci men Type: BLOOD SPECIMENOrdering Facility: [facility] Address: [address] [address] Performed By: #### 5 7021-8 ####[facility] LABIA [id number] [place] [address] RBC (Bld) [#/Vol] 4.10 10*6/uL Normal 3.90-5.20 [facility] Comment on above: Order Comment: Speci men Type: BLOOD SPECIMENOrdering Facility: [facility] Address: [address] [address] Performed By: #### 5 7021-8 ####[facility] LABIA [id number] [place] [address] WBC (Bld) [#/Vol] 10.90 10*3/uL Normal 3.70-11.00 [facility] Comment on above: Order Comment: Speci men Type: BLOOD SPECIMENOrdering Facility: [facility] Address: [address] [place] [address] Performed By: #### 5 7021-8 ####[facility] LABIA [id number] [place] [address] CNOVSPon 05-20-2023 CNOVSP Visit (SP) Office (Barbara SUERO) -- ANDREW BARROS ([id number]) 1945 F Date Time Provider Department 05/20/23 3:00 PM SANDEEP LENZ During your visit today, we recorded the following information about you: Temperature Pulse Respiration Blood pressure 97.8 degrees 68/minute 16/minute 168/72 Weight Height 58.9 kg 1.626 m Sandeep Lenz MD 05/30/2023 5:58 AM Signed [facility] NAME: Andrew Barros CLINIC NO.: [id number] DATE OF SERVICE: May 20, 2023 (Eduardo) Some elements in this clinic note that are critical to medical decision making have been carefully reviewed and included from a prior clinic note dated: April 29, 2023 (Eduardo) Referring Provider: Eduardo Sharpe Additional Clinicians involved in Andrew Barros's care: CC: History of Breast Cancer ASSESSMENT: 77 year old woman with Left breast upper outer quadrant, invasive ductal carcinoma, ER postive, NC positive, 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 Diagnosed 2017. Oncotype testing recurrence score 12 Stopped anticoagulation due to intracranial hemorrhage in 10/2021. Mildly elevated calcium - will send to nephrology. Bone scan negative for osseous mets. Breast tumor markers are negative, PTH-RP remains elevated 3.01 May 2023. PLAN: Continue Arimidex. Refer to nephrology for hypercalcemia and kidney failure Repeat labs today RTC in 3 months - repeat labs TREATMENT TO DATE: 3. Started arimidex September 26, 2018 2. Completed radiation September 10, 2018 1. Left breast lumpectomy and SNB, June 05, 2018. HPI: Updated Visit, May 20, 2023: 05/02/2023 Bone Scan - negative for osseous mets. Sugey her daughter is with her. Unclear etiology of hypercalcemia but likely due to renal failure. She is otherwise doing fine. Updated Visit, April 29, 2023: Here with her daughter Janki today. Doing well. Hypercalcemia Getting worked up for ARF. Updated Visit, January 08, 2022: Mammogram results pending from 01/05/2022 11/14/2021 had intracranial hemorrhage with intracerebral hematoma in the right tempora lobe due to HTN and warfarin. Anticoagulation was for A-fib. Had been On Xarelto up until 3 months prior to hemorrhage but needed something cheaper. Updated Visit, July 21, 2021: Andrew Barros returns for scheduled follow-up. Since her last visit there has been no significant medical changes. She has been on Arimidex for 3 years and is tolerating it well. She does experience hot flashes. She denies any muscle and joint aches. She remains on calcium, vitamin D plus a multivitamin. She offers no new complaints today. Overall, she is doing well with no new issues, problems or concerns. 04/24/2021 DEXA scan Impression: World Health Organization classification: Normal-low fracture risk. Updated Visit, April 20, 2021: Andrew is a 75 year old female who presents for her annual visit and to transition her care from her prior physician Dr. Herman. She tells me that her from COVID-19 in 08/2020 age 80. She also had COVID and was hospitalized but (obviously) recovered. The patient remains on Arimidex and is tolerating it well. She has no symptoms or concerns for recurrence. At this time she will continue with that as planned but will also need bone density and to start on Vit-D + Calcium. Mammograms at [facility] on 01/04/2021 Bi-Rads 2 benign. REVIEW OF SYSTEMS Per HPI and otherwise negative by full review of organ systems. ECOG PERFORMANCE STATUS: 0 PHYSICAL EXAMINATION: Vitals: BP 168/72 Pulse 68 Temp (Src) 97.8 (Temporal) Resp 16 Ht 5' 4.016 (1.63m) Wt 129 lb 12.8 oz (58.9kg) SpO2 99% BMI 22.27 kg/(m2). Body surface area is 1.63 meters squared. Exam limited to gross visualization where appropriate. Gen.: This is an age-appropriate patient in no acute distress. Head: Appears atraumatic with no visible lesions. Eyes: Pupils equally round and reactive to light, extraocular muscles are intact. Neck: Supple. Respiratory: Appears to be respiring comfortably. Neurologic: Nonfocal to gross visualization. Alert and oriented ?3. Psychiatric: No evidence of inappropriate anxiety or depression. Skin: Visible areas of skin without rash, lesions, wounds or petechiae. ALLERGIES: ALLERGIES Allergen Reactions Jebnfol-Rfy-Epl Red* Unknown Other reaction(s): AOF MEDICATIONS: anastrozole (ARIMIDEX) 1 mg tablet TAKE 1 TABLET BY MOUTH EVERY DAY doxazosin (CARDURA) 4 mg tablet Take 4 mg by mouth daily at bedtime. aspirin (ASPIR-81 ORAL) Take 81 mg by mouth once daily. ferrous sulfate 325 mg (65 mg iron) tablet Take 325 mg by mouth once daily. amLODIPine (NORVASC) 2.5 mg tablet Take 5 mg by mouth twice daily. metFORMIN (GLUCOPHAGE) 500 mg tablet Take 500 (more content not included)... Normal [facility] -- ANDREW BARROS ([id number]) 1945 F Date Time Provider Department 05/20/23 SANDEEP LENZ [facility] During your visit today, we recorded the following information about you: Samina Anderson 05/20/2023 4:06 PM Signed Refer to nephrology for hypercalcemia and kidney failure Lisa/Yan: Can you please refer patient and follow up? Thanks! Jennifer Christensen 05/22/2023 8:46 AM Signed Lisa: Information ready for you. Jennifer [facility] 05/30/2023 7:49 AM Signed Records faxed to Nephrology. Jennifer Aviles 06/05/2023 10:00 AM Signed Called spoke with Deepika at Nephrology office. She states she has not received this referral and has asked us to please refax it. LISA: Please refax this referral to Nephrology office. Thank You. Jennifer Robertson [facility] 06/05/2023 10:36 AM Signed Records re-faxed to Nephrology. Jennifer Aviles 06/06/2023 2:32 PM Signed I called Neph office left message for their office we did re-fax this referral and I was calling to check make sure they received it and see if patient has been scheduled yet. I asked their office to call us back with status of this referral. Jennifer De Jesus 06/10/2023 12:54 PM Signed Called Nephrology office spoke with Paola. She states they did receive this referral and have patient scheduled to see Dr Hartman on 07/03 @ 3:00. Jennifer Covington Allergies As of Date: 05/20/2023 Noted Allergy Reaction LVRKEHN-MFC-VVR REDUCTASE INHIBIT*01/21/2018 16 - Unknown Comments: Other reaction(s): AOF Date Reviewed: 05/20/2023 Reviewed by: Arabella Cotter MA - Fully Assessed Reason for Visit: Referral Information [9523] Cmt: Nephrology Prescriptions as of 06/10/2023 - anastrozole (ARIMIDEX) 1 mg tablet TAKE 1 TABLET BY MOUTH EVERY DAY - doxazosin (CARDURA) 4 mg tablet Take 4 mg by mouth daily at bedtime. - aspirin (ASPIR-81 ORAL) Take 81 mg by mouth once daily. - ferrous sulfate 325 mg (65 mg iron) tablet Take 325 mg by mouth once daily. - amLODIPine (NORVASC) 2.5 mg tablet Take 5 mg by mouth twice daily. - metFORMIN (GLUCOPHAGE) 500 mg tablet Take 500 mg by mouth twice daily. - bimatoprost (LUMIGAN) 0.01 % drop ophthalmic drops 1 Drop as directed. - propafenone SR (RYTHMOL SR) 325 mg 12 hr capsule Take 325 mg by mouth q 12 HR. - potassium chloride (K-TAB) 10 mEq tablet Potassium Chloride Active 10 MEQ PO Daily September 22, 2020 12:10pm See your primary care provider or cardiology for refills - omeprazole (PRILOSEC) 40 mg capsule Take 40 mg by mouth once daily. - calcium-cholecalciferol, D3, (OSCAL+D 250) 250-125 mg-unit per tablet Take 1 tablet by mouth twice daily. - rivaroxaban (XARELTO) 20 mg tablet Take 20 mg by mouth daily with dinner. - ezetimibe (ZETIA) 10 mg tablet Take 10 mg by mouth once daily. - carvedilol (COREG) 25 mg tablet Take 25 mg by mouth as directed. Takes 1 1/2 tablet 2x a day - Multivitamin capsule Take 1 capsule by mouth once daily. - furosemide (LASIX) 40 mg tablet Take 40 mg by mouth once daily. Problem List As Of Date 05/20/2023 Noted Resolved Malignant neoplasm of upper-outer quadrant of l*06/12/2018 Other specified menopausal and perimenopausal d*04/20/2021 Hypercalcemia [E83.52] 04/29/2023 Stage 3 chronic kidney disease, unspecified whe*05/05/2023 Encounter Status:Closed by SAMINA ANDERSON on 06/10/23 Normal [facility] Calcium.ionized [Moles/Vol]o n 05-20-2023 Calcium.ionized (Bld) [Mass/Vol] 1.23 mmol/L 1.08 - 1.30 mmol/L [facility] Calcium.ionized adjusted to pH 7.4 (Bld) [Moles/Vol] 1.20 mmol/L 1.08 - 1.30 mmol/L [facility] Calcium.ionized (Bld) [Mass/Vol] 1.23 mmol/L Normal 1.08-1.30 [facility] Comment on above: Order Comment: Speci men Type: BLOOD SPECIMENOrdering Facility: [facility] Address: [address] [place] [address] Performed By: #### 1 995-0 ####[facility] LABIA [id number] [address] OF [facility] Calcium.ionized adjusted to pH 7.4 (Bld) [Moles/Vol] 1.20 mmol/L Normal 1.08-1.30 [facility] Comment on above: Order Comment: Speci men Type: BLOOD SPECIMENOrdering Facility: [facility] Address: [address] [place] [address] Performed By: #### 1 995-0 ####[facility] LABCLIA [id number] [place] [address] [place] Comprehensive metabolic 2000 panelon 05-20-2023 Albumin [Mass/Vol] 4.6 g/dL Normal 3.9-4.9 [facility] Comment on above: Order Comment: Speci men Type: BLOOD SPECIMENOrdering Facility: [facility] Address: [address] [place] [address] Performed By: #### 2 4323-8 ####[facility] LABCLIA [id number] [place] [address] ALP [Catalytic activity/Vol] 96 U/L Normal 34-123 [facility] Comment on above: Order Comment: Speci men Type: BLOOD SPECIMENOrdering Facility: [facility] Address: [address] [place] [address] Performed By: #### 2 4323-8 ####[facility] LABCLIA [id number] [place] [address] ALT [Catalytic activity/Vol] 13 U/L Normal 7-38 [facility] Comment on above: Order Comment: Speci men Type: BLOOD SPECIMENOrdering Facility: [facility] Address: [address] [place] [address] Performed By: #### 2 4323-8 ####[facility] LABCLIA [id number] [place] [address] Anion gap [Moles/Vol] 13 mmol/L Normal 9-18 [facility] Comment on above: Order Comment: Speci men Type: BLOOD SPECIMENOrdering Facility: [facility] Address: [address] [address] Performed By: #### 2 4323-8 ####[facility] LABCLIA [id number] [place] [address] AST [Catalytic activity/Vol] 18 U/L Normal 13-35 [facility] Comment on above: Order Comment: Speci men Type: BLOOD SPECIMENOrdering Facility: [facility] Address: [address] [place] [address] Performed By: #### 2 4323-8 ####[facility] LABCLIA [id number] [place] [address] Bilirubin [Mass/Vol] 0.3 mg/dL Normal 0.2-1.3 [facility] Comment on above: Order Comment: Speci men Type: BLOOD SPECIMENOrdering Facility: [facility] Address: [address] [address] Performed By: #### 2 4323-8 ####[facility] LABCLIA [id number] [place] [address] Calcium [Mass/Vol] 10.0 mg/dL Normal 8.5-10.2 [facility] Comment on above: Order Comment: Speci men Type: BLOOD SPECIMENOrdering Facility: [facility] Address: [address] [place] [address] Performed By: #### 2 4323-8 ####[facility] LABCLIA [id number] [place] [address] Chloride [Moles/Vol] 101 mmol/L Normal 97-105 [facility] Comment on above: Order Comment: Speci men Type: BLOOD SPECIMENOrdering Facility: [facility] Address: [address] [place] [address] Performed By: #### 2 4323-8 ####[facility] LABCLIA [id number] [place] [address] CO2 [Moles/Vol] 26 mmol/L Normal 22-30 [facility] Comment on above: Order Comment: Speci men Type: BLOOD SPECIMENOrdering Facility: [facility] Address: [address] [place] [address] Performed By: #### 2 4323-8 ####[facility] LABCLIA [id number] [place] [address] Creatinine [Mass/Vol] 1.32 mg/dL High 0.58-0.96 [facility] Comment on above: Order Comment: Speci men Type: BLOOD SPECIMENOrdering Facility: [facility] Address: [address] [place] [address] Performed By: #### 2 4323-8 ####[facility] LABCLIA [id number] [place] [address] Creatinine and Glomerular filtration rate.predicted panel (S/P/Bld) 41 mL/min/1.73m??? Low >=60 [facility] Comment on above: Order Comment: Anastacio irene Type: BLOOD SPECIMENOrdering Facility: [facility] Address: [address] [place] [address] Result Comment: Sugar mated Glomerular Filtration Rate (eGFR) is calculated using the 2020 CKD-EPI creatinine equation. This equation utilizes serum creatinine, sex, and age as parameters. The creatinine assay has traceable calibration to isotope dilution-mass spectrometry. Refer to KDIGO guidelines for clinical interpretation. In patients with unstable renal function, e.g. those with acute kidney injury, the eGFR may not accurately reflect actual GFR. Performed By: #### 2 4323-8 ####[facility] [id number] [place] [address] Glucose [Mass/Vol] 119 mg/dL High 74-99 [facility] Comment on above: Order Comment: Anastacio bonilla Type: BLOOD SPECIMENOrdering Facility: [facility] Address: [address] [place] [address] Result Comment: The [place] Diabetes [employer] (ADA) provides guidance for cutoff values for fasting glucose and random glucose. The ADA defines fasting as no caloric intake for at least 8 hours. Fasting plasma glucose results between 100 to 125 mg/dL indicate increased risk for diabetes (prediabetes). Fasting plasma glucose results greater than or equal to 126 mg/dL meet the criteria for diagnosis of diabetes. In the absence of unequivocal hyperglycemia, results should be confirmed by repeat testing. In a patient with classic symptoms of hyperglycemia or hyperglycemic crisis, random plasma glucose results greater than or equal to 200 mg/dL meet the criteria for diagnosis of diabetes. Reference: Standards of Medical Care in Diabetes 2016, [place] [employer]. Diabetes Care. 2016.39(Suppl 1). Performed By: #### 2 4323-8 ####[facility] [id number] [place] [address] Potassium [Moles/Vol] 4.1 mmol/L Normal 3.7-5.1 [facility] Comment on above: Order Comment: Speci men Type: BLOOD SPECIMENOrdering Facility: [facility] Address: [address] [place] [address] Performed By: #### 2 4323-8 ####[facility]IA [id number] [place] [address] Protein [Mass/Vol] 7.6 g/dL Normal 6.3-8.0 [facility] Comment on above: Order Comment: Speci men Type: BLOOD SPECIMENOrdering Facility: [facility] Address: [address] [place] [address] Performed By: #### 2 4323-8 ####[facility] [id number] [place] [address] Sodium [Moles/Vol] 140 mmol/L Normal 136-144 [facility] Comment on above: Order Comment: Speci men Type: BLOOD SPECIMENOrdering Facility: [facility] Address: [address] [place] [address] Performed By: #### 2 4323-8 ####[facility] [id number] [place] [address] Urea nitrogen [Mass/Vol] 32 mg/dL High 7-21 [facility] Comment on above: Order Comment: Speci men Type: BLOOD SPECIMENOrdering Facility: [facility] Address: [address] [place] [address] Performed By: #### 2 4323-8 ####[facility] [id number] [place] [address] CNSWon 05-09-2023 CNSW Social Work (HEMASA) -- ANDREW BARROS ([id number]) 1945 F Date Time Provider Department 05/09/23 ALEIDA VARGAS During your visit today, we recorded the following information about you: Aleida Vargas LSW 05/09/2023 11:00 AM Signed Patient appears on the [facility] First Time Treatment List for a non-oncology treatment. No psychosocial assessment is indicated. DENIA Gupta-Pritesh Allergies As of Date: 05/09/2023 Noted Allergy Reaction EZBXAWU-DHL-KEL REDUCTASE INHIBIT*01/21/2018 16 - Unknown Comments: Other reaction(s): AOF Date Reviewed: 04/29/2023 Reviewed by: Arabella Cotter MA - Fully Assessed Prescriptions as of 05/09/2023 - anastrozole (ARIMIDEX) 1 mg tablet TAKE 1 TABLET BY MOUTH EVERY DAY - doxazosin (CARDURA) 4 mg tablet Take 4 mg by mouth daily at bedtime. - aspirin (ASPIR-81 ORAL) Take 81 mg by mouth once daily. - ferrous sulfate 325 mg (65 mg iron) tablet Take 325 mg by mouth once daily. - amLODIPine (NORVASC) 2.5 mg tablet Take 5 mg by mouth twice daily. - metFORMIN (GLUCOPHAGE) 500 mg tablet Take 500 mg by mouth twice daily. - bimatoprost (LUMIGAN) 0.01 % drop ophthalmic drops 1 Drop as directed. - propafenone SR (RYTHMOL SR) 325 mg 12 hr capsule Take 325 mg by mouth q 12 HR. - potassium chloride (K-TAB) 10 mEq tablet Potassium Chloride Active 10 MEQ PO Daily September 22, 2020 12:10pm See your primary care provider or cardiology for refills - omeprazole (PRILOSEC) 40 mg capsule Take 40 mg by mouth once daily. - calcium-cholecalciferol, D3, (OSCAL+D 250) 250-125 mg-unit per tablet Take 1 tablet by mouth twice daily. - rivaroxaban (XARELTO) 20 mg tablet Take 20 mg by mouth daily with dinner. - ezetimibe (ZETIA) 10 mg tablet Take 10 mg by mouth once daily. - carvedilol (COREG) 25 mg tablet Take 25 mg by mouth as directed. Takes 1 1/2 tablet 2x a day - Multivitamin capsule Take 1 capsule by mouth once daily. - furosemide (LASIX) 40 mg tablet Take 40 mg by mouth once daily. Problem List As Of Date 05/09/2023 Noted Resolved Malignant neoplasm of upper-outer quadrant of l*06/12/2018 Other specified menopausal and perimenopausal d*04/20/2021 Hypercalcemia [E83.52] 04/29/2023 Stage 3 chronic kidney disease, unspecified whe*05/05/2023 Encounter Status:Closed by ALEIDA VARGAS on 05/09/23 Normal [facility] CA 15-3 BLDon 05-01-2023 Cancer Ag 15-3 Qn 9.9 U/mL <26.0 U/mL [facility] CA 27.29 BLOODon 05-01-2023 Cancer Ag 27-29 Qn 12.5 [arb'U]/mL <38.6 U/mL [facility] CBC W Auto Differential pane l (Bld)on 05-01-2023 Basophils (Bld) [#/Vol] 0.06 10*3/uL <0.11 k/uL [facility] Basophils/100 WBC (Bld) 0.6 % [facility] Differential cell count method Nom (Bld) Auto [facility] Eosinophils (Bld) [#/Vol] 0.18 10*3/uL <0.46 k/uL [facility] Eosinophils/100 WBC (Bld) 1.9 % [facility] Erythrocyte distribution width (RBC) [Ratio] 12.7 % 11.5 - 15.0 % [facility] Hematocrit (Bld) [Volume fraction] 36.4 % 36.0 - 46.0 % [facility] Hemoglobin (Bld) [Mass/Vol] 12.2 g/dL 11.5 - 15.5 g/dL [facility] Immature granulocytes (Bld) [#/Vol] 0.03 10*3/uL <0.10 k/uL [facility] Immature granulocytes/100 WBC (Bld) 0.3 % [facility] Lymphocytes (Bld) [#/Vol] 1.62 10*3/uL 1.00 - 4.00 k/uL [facility] Lymphocytes/100 WBC (Bld) 17.3 % [facility] MCH (RBC) [Entitic mass] 32.0 pg 26.0 - 34.0 pg [facility] MCHC (RBC) [Mass/Vol] 33.5 g/dL 30.5 - 36.0 g/dL [facility] MCV (RBC) [Entitic vol] 95.5 fL 80.0 - 100.0 fL [facility] Monocytes (Bld) [#/Vol] 0.99 10*3/uL High <0.87 k/uL [facility] Monocytes/100 WBC (Bld) 10.6 % [facility] Neutrophils (Bld) [#/Vol] 6.50 10*3/uL 1.45 - 7.50 k/uL [facility] Neutrophils/100 WBC (Bld) 69.3 % [facility] Nucleated RBC (Bld) [#/Vol] <0.01 k/uL [facility] Nucleated RBC/100 WBC (Bld) [Ratio] 0.0 /100 WBC [facility] Platelet mean volume (Bld) [Entitic vol] 11.9 fL 9.0 - 12.7 fL [facility] Platelets (Bld) [#/Vol] 252 10*3/uL 150 - 400 k/uL [facility] RBC (Bld) [#/Vol] 3.81 10*6/uL Low 3.90 - 5.2 0 m/uL [facility] WBC (Bld) [#/Vol] 9.38 10*3/uL 3.70 - 11.00 k/uL [facility] Comprehensive metabolic 2000 panelon 05-01-2023 Albumin [Mass/Vol] 4.3 g/dL 3.9 - 4.9 g/dL [facility] ALP [Catalytic activity/Vol] 93 U/L 34 - 123 U/L [facility] ALT [Catalytic activity/Vol] 14 U/L 7 - 38 U/L [facility] Anion gap [Moles/Vol] 14 mmol/L 9 - 18 mmol/L [facility] AST [Catalytic activity/Vol] 18 U/L 13 - 35 U/L [facility] Bilirubin [Mass/Vol] 0.3 mg/dL 0.2 - 1 .3 mg/dL [facility] Calcium [Mass/Vol] 10.6 mg/dL High 8.5 - 10. 2 mg/dL [facility] Chloride [Moles/Vol] 98 mmol/L 97 - 10 5 mmol/L [facility] CO2 [Moles/Vol] 26 mmol/L 22 - 30 mmol/L [facility] Creatinine [Mass/Vol] 1.38 mg/dL High 0.58 - 0.96 mg/dL [facility] Estimated Glomerular Filtration Rate 39 mL/min/1.73m Low >=60 mL/min/1.73 m [facility] Glucose [Mass/Vol] 207 mg/dL High 74 - 99 mg/dL [facility] Potassium [Moles/Vol] 3.7 mmol/L 3.7 - 5.1 mmol/L [facility] Protein [Mass/Vol] 6.9 g/dL 6.3 - 8.0 g/dL [facility] Sodium [Moles/Vol] 138 mmol/L 136 - 144 mmol/L [facility] Urea nitrogen [Mass/Vol] 39 mg/dL High 7 - 21 mg/dL [facility] CBC W Auto Differential pane l (Bld)on 04-30-2023 Basophils (Bld) [#/Vol] 0.06 10*3/uL Normal <0.11 [facility] Comment on above: Order Comment: Speci men Type: BLOOD SPECIMENOrdering Facility: [facility] Address: [address] [place] [address] Performed By: #### 5 7021-8 ####[facility] [id number] [place] [address] Basophils/100 WBC (Bld) 0.6 % Normal [facility] Comment on above: Order Comment: Speci men Type: BLOOD SPECIMENOrdering Facility: [facility] Address: [address] [address] Performed By: #### 5 7021-8 ####[facility]CL[facility] [id number] [place] [address] Differential cell count method Nom (Bld) Auto Normal [facility] Comment on above: Order Comment: Speci men Type: BLOOD SPECIMENOrdering Facility: [facility] Address: [address] [address] Performed By: #### 5 7021-8 ####[facility]CL[facility] [id number] [place] [address] Eosinophils (Bld) [#/Vol] 0.18 10*3/uL Normal <0.46 [facility] Comment on above: Order Comment: Speci men Type: BLOOD SPECIMENOrdering Facility: [facility] Address: [address] [address] Performed By: #### 5 7021-8 ####[facility] [id number] [place] [address] Eosinophils/100 WBC (Bld) 1.9 % Normal [facility] Comment on above: Order Comment: Speci men Type: BLOOD SPECIMENOrdering Facility: [facility] Address: [address] [place] [address] Performed By: #### 5 7021-8 ####[facility]CL[facility] [id number] [place] [address] Erythrocyte distribution width (RBC) [Ratio] 12.7 % Normal 11.5-15.0 [facility] Comment on above: Order Comment: Speci men Type: BLOOD SPECIMENOrdering Facility: [facility] Address: [address] [place] [address] Performed By: #### 5 7021-8 ####[facility]CL[facility] [id number] [place] [address] Hematocrit (Bld) [Volume fraction] 36.4 % Normal 36.0-46.0 [facility] Comment on above: Order Comment: Speci men Type: BLOOD SPECIMENOrdering Facility: [facility] Address: [address] [place] [address] Performed By: #### 5 7021-8 ####[facility]CL[facility] [id number] [place] [address] Hemoglobin (Bld) [Mass/Vol] 12.2 g/dL Normal 11.5-15.5 [facility] Comment on above: Order Comment: Speci men Type: BLOOD SPECIMENOrdering Facility: [facility] Address: [address] [place] [address] Performed By: #### 5 7021-8 ####[facility]CL[facility] [id number] [place] [address] Immature granulocytes (Bld) [#/Vol] 0.03 10*3/uL Normal <0.10 [facility] Comment on above: Order Comment: Speci men Type: BLOOD SPECIMENOrdering Facility: [facility] Address: [address] [place] [address] Performed By: #### 5 7021-8 ####[facility] [id number] [place] [address] Immature granulocytes/100 WBC (Bld) 0.3 % Normal [facility] Comment on above: Order Comment: Speci men Type: BLOOD SPECIMENOrdering Facility: [facility] Address: [address] [place] [address] Performed By: #### 5 7021-8 ####[facility] [id number] [place] [address] Lymphocytes (Bld) [#/Vol] 1.62 10*3/uL Normal 1.00-4.00 [facility] Comment on above: Order Comment: Speci men Type: BLOOD SPECIMENOrdering Facility: [facility] Address: [address] [place] [address] Performed By: #### 5 7021-8 ####[facility] [id number] [place] [address] Lymphocytes/100 WBC (Bld) 17.3 % Normal [facility] Comment on above: Order Comment: Speci men Type: BLOOD SPECIMENOrdering Facility: [facility] Address: [address] [address] Performed By: #### 5 7021-8 ####[facility]CL[facility] [id number] [place] [address] MCH (RBC) [Entitic mass] 32.0 pg Normal 26.0-34.0 [facility] Comment on above: Order Comment: Speci men Type: BLOOD SPECIMENOrdering Facility: [facility] Address: [address] [place] [address] Performed By: #### 5 7021-8 ####[facility]CL[facility] [id number] [place] [address] MCHC (RBC) [Mass/Vol] 33.5 g/dL Normal 30.5-36.0 [facility] Comment on above: Order Comment: Speci men Type: BLOOD SPECIMENOrdering Facility: [facility] Address: [address] [place] [address] Performed By: #### 5 7021-8 ####[facility] [id number] [place] [address] MCV (RBC) [Entitic vol] 95.5 fL Normal 80.0-100.0 [facility] Comment on above: Order Comment: Speci men Type: BLOOD SPECIMENOrdering Facility: [facility] Address: [address] [place] [address] Performed By: #### 5 7021-8 ####[facility]IA [id number] [place] [address] Monocytes (Bld) [#/Vol] 0.99 10*3/uL High <0.87 [facility] Comment on above: Order Comment: Speci men Type: BLOOD SPECIMENOrdering Facility: [facility] Address: [address] [place] [address] Performed By: #### 5 7021-8 ####[facility]CL[facility] [id number] [place] [address] Monocytes/100 WBC (Bld) 10.6 % Normal [facility] Comment on above: Order Comment: Speci men Type: BLOOD SPECIMENOrdering Facility: [facility] Address: [address] [place] [address] Performed By: #### 5 7021-8 ####[facility]CL[facility] [id number] [place] [address] Neutrophils (Bld) [#/Vol] 6.50 10*3/uL Normal 1.45-7.50 [facility] Comment on above: Order Comment: Speci men Type: BLOOD SPECIMENOrdering Facility: [facility] Address: [address] [place] [address] Performed By: #### 5 7021-8 ####[facility] [id number] [place] [address] Neutrophils/100 WBC (Bld) 69.3 % Normal [facility] Comment on above: Order Comment: Speci men Type: BLOOD SPECIMENOrdering Facility: [facility] Address: [address] [place] [address] Performed By: #### 5 7021-8 ####[facility]CL[facility] [id number] [place] [address] Nucleated RBC (Bld) [#/Vol] 10*3/uL Normal <0.01 [facility] Comment on above: Order Comment: Speci men Type: BLOOD SPECIMENOrdering Facility: [facility] Address: [address] [place] [address] Performed By: #### 5 7021-8 ####[facility] [id number] [place] [address] Nucleated RBC/100 WBC (Bld) [Ratio] 0.0 /100 WBC Normal [facility] Comment on above: Order Comment: Speci men Type: BLOOD SPECIMENOrdering Facility: [facility] Address: [address] [place] [address] Performed By: #### 5 7021-8 ####[facility] [id number] [place] [address] Platelet mean volume (Bld) [Entitic vol] 11.9 fL Normal 9.0-12.7 [facility] Comment on above: Order Comment: Speci men Type: BLOOD SPECIMENOrdering Facility: [facility] Address: [address] [place] [address] Performed By: #### 5 7021-8 ####[facility] [id number] [place] [address] Platelets (Bld) [#/Vol] 252 10*3/uL Normal 150-400 [facility] Comment on above: Order Comment: Speci men Type: BLOOD SPECIMENOrdering Facility: [facility] Address: [address] [place] [address] Performed By: #### 5 7021-8 ####[facility] [id number] [place] [address] RBC (Bld) [#/Vol] 3.81 10*6/uL Low 3.90-5.20 [facility] Comment on above: Order Comment: Speci men Type: BLOOD SPECIMENOrdering Facility: [facility] Address: [address] [place] [address] Performed By: #### 5 7021-8 ####[facility] [id number] [place] [address] WBC (Bld) [#/Vol] 9.38 10*3/uL Normal 3.70-11.00 [facility] Comment on above: Order Comment: Speci men Type: BLOOD SPECIMENOrdering Facility: [facility] Address: [address] [place] [address] Performed By: #### 5 7021-8 ####[facility] [id number] [place] [address] Cancer Ag15-3 SerPl-aCncon 0 04-30-2023 Cancer Ag 15-3 Qn 9.9 U/mL Normal <26.0 [facility] Comment on above: Order Comment: Speci men Type: BLOOD SPECIMENOrdering Facility: [facility] Address: [address] [place] [address] Result Comment: The CA 15-3 test methodology used is the Electrochemiluminescence Immunoassay by [employer]. Results obtained with different methods or kits cannot be used interchangeably. Performed By: #### 6 875-9 ####[facility] LABCLIA [id number] OF [facility] Cancer Ag27-29 SerPl-aCncon 04-30-2023 Cancer Ag 27-29 Qn 12.5 [arb'U]/mL Normal <38.6 [facility] Comment on above: Order Comment: Speci men Type: BLOOD SPECIMENOrdering Facility: [facility] Address: [address] [place] [address] Result Comment: The CA27.29 test was performed using the [employer]ign[employer] XP chemiluminometric immunoassay method. Results obtained with different assay methods or kits cannot be used interchangeably. Performed By: #### 1 7842-6 ####[facility] [id number] [address] OF [facility] Comprehensive metabolic 2000 panelon 04-30-2023 Albumin [Mass/Vol] 4.3 g/dL Normal 3.9-4.9 [facility] Comment on above: Order Comment: Speci men Type: BLOOD SPECIMENOrdering Facility: [facility] Address: [address] [place] [address] Performed By: #### 2 4323-8 ####[facility] [id number] [place] [address] ALP [Catalytic activity/Vol] 93 U/L Normal 34-123 [facility] Comment on above: Order Comment: Speci men Type: BLOOD SPECIMENOrdering Facility: [facility] Address: [address] [address] Performed By: #### 2 4323-8 ####[facility] [id number] [place] [address] ALT [Catalytic activity/Vol] 14 U/L Normal 7-38 [facility] Comment on above: Order Comment: Speci men Type: BLOOD SPECIMENOrdering Facility: [facility] Address: [address] [address] Performed By: #### 2 4323-8 ####[facility] [id number] [place] [address] Anion gap [Moles/Vol] 14 mmol/L Normal 9-18 [facility] Comment on above: Order Comment: Speci men Type: BLOOD SPECIMENOrdering Facility: [facility] Address: [address] [address] Performed By: #### 2 4323-8 ####[facility] [id number] [place] [address] AST [Catalytic activity/Vol] 18 U/L Normal 13-35 [facility] Comment on above: Order Comment: Speci men Type: BLOOD SPECIMENOrdering Facility: [facility] Address: [address] [address] Performed By: #### 2 4323-8 ####[facility] [id number] [place] [address] Bilirubin [Mass/Vol] 0.3 mg/dL Normal 0.2-1.3 [facility] Comment on above: Order Comment: Speci men Type: BLOOD SPECIMENOrdering Facility: [facility] Address: [address] [address] Performed By: #### 2 4323-8 ####[facility] [id number] [place] [address] Calcium [Mass/Vol] 10.6 mg/dL High 8.5-10.2 [facility] Comment on above: Order Comment: Speci men Type: BLOOD SPECIMENOrdering Facility: [facility] Address: [address] [place] [address] Performed By: #### 2 4323-8 ####[facility] [id number] [place] [address] Chloride [Moles/Vol] 98 mmol/L Normal 97-105 [facility] Comment on above: Order Comment: Speci men Type: BLOOD SPECIMENOrdering Facility: [facility] Address: [address] [place] [address] Performed By: #### 2 4323-8 ####[facility] [id number] [place] [address] CO2 [Moles/Vol] 26 mmol/L Normal 22-30 [facility] Comment on above: Order Comment: Speci men Type: BLOOD SPECIMENOrdering Facility: [facility] Address: [address] [place] [address] Performed By: #### 2 4323-8 ####[facility] [id number] [place] [address] Creatinine [Mass/Vol] 1.38 mg/dL High 0.58-0.96 [facility] Comment on above: Order Comment: Speci men Type: BLOOD SPECIMENOrdering Facility: [facility] Address: [address] [place] [address] Performed By: #### 2 4323-8 ####[facility] [id number] [place] [address] ESTIMATED GLOMERULAR FILTRATION RATE 39 mL/min/1.73m??? Low >=60 [facility] Comment on above: Order Comment: Speci men Type: BLOOD SPECIMENOrdering Facility: [facility] Address: [address] [place] [address] Result Comment: Sugar mated Glomerular Filtration Rate (eGFR) is calculated using the 2020 CKD-EPI creatinine equation. This equation utilizes serum creatinine, sex, and age as parameters. The creatinine assay has traceable calibration to isotope dilution-mass spectrometry. Refer to KDIGO guidelines for clinical interpretation. In patients with unstable renal function, e.g. those with acute kidney injury, the eGFR may not accurately reflect actual GFR. Performed By: #### 2 4323-8 ####[facility] [id number] [place] [address] Glucose [Mass/Vol] 207 mg/dL High 74-99 [facility] Comment on above: Order Comment: Speci men Type: BLOOD SPECIMENOrdering Facility: [facility] Address: [address] [place] [id number] Result Comment: The [place] [employer] (ADA) provides guidance for cutoff values for fasting glucose and random glucose. The ADA defines fasting as no caloric intake for at least 8 hours. Fasting plasma glucose results between 100 to 125 mg/dL indicate increased risk for diabetes (prediabetes). Fasting plasma glucose results greater than or equal to 126 mg/dL meet the criteria for diagnosis of diabetes. In the absence of unequivocal hyperglycemia, results should be confirmed by repeat testing. In a patient with classic symptoms of hyperglycemia or hyperglycemic crisis, random plasma glucose results greater than or equal to 200 mg/dL meet the criteria for diagnosis of diabetes. Reference: Standards of Medical Care in Diabetes 2016, [place] [employer]. Diabetes Care. 2016.39(Suppl 1). Performed By: #### 2 4323-8 ####[facility] [id number] [place] [address] Potassium [Moles/Vol] 3.7 mmol/L Normal 3.7-5.1 [facility] Comment on above: Order Comment: Anastacio bonilla Type: BLOOD SPECIMENOrdering Facility: [facility] Address: [address] [place] [address] Performed By: #### 2 4323-8 ####[facility] [id number] [place] [address] Protein [Mass/Vol] 6.9 g/dL Normal 6.3-8.0 [facility] Comment on above: Order Comment: Speci men Type: BLOOD SPECIMENOrdering Facility: [facility] Address: [address] [address] Performed By: #### 2 4323-8 ####[facility] [id number] [place] [address] Sodium [Moles/Vol] 138 mmol/L Normal 136-144 [facility] Comment on above: Order Comment: Speci men Type: BLOOD SPECIMENOrdering Facility: [facility] Address: [address] [place] [address] Performed By: #### 2 4323-8 ####[facility] [id number] [place] [address] Urea nitrogen [Mass/Vol] 39 mg/dL High 7-21 [facility] Comment on above: Order Comment: Speci men Type: BLOOD SPECIMENOrdering Facility: [facility] Address: [address] [place] [address] Performed By: #### 2 4323-8 ####[facility] [id number] [place] [address] PTH RELATED PEPTIDEon 2022 PTH RELATED PEPTIDE 3.9 pmol/L High 0.0-3.4 [facility] Comment on above: Order Comment: Speci men Type: BLOOD SPECIMENOrdering Facility: [facility] Address: [address] [place] [address] Result Comment: INTE RPRETIVE INFORMATION: Parathyroid Hormone-Related Peptide This test was developed and its performance characteristics determined by [facility]. It has not been cleared or approved by the [place] Food and Drug Administration. This test was performed in a CLIA certified laboratory and is intended for clinical purposes. Performed By: [facility] [address] [place] [address] Fish Checker: Apolinar Fernandez MD, PhD CLIA Number: [id number] Performed By: #### P THPEP ####[facility] [id number] [place] [id number] CBC W Auto Differential pane l (Bld)on 04-29-2023 Basophils (Bld) [#/Vol] 0.05 10*3/uL Normal <0.11 [facility] Comment on above: Order Comment: Speci men Type: BLOOD SPECIMENOrdering Facility: [facility] Address: [address] [place] [address] Performed By: #### 5 7021-8 ####[facility] [id number] [place] [address] Basophils/100 WBC (Bld) 0.5 % Normal [facility] Comment on above: Order Comment: Speci men Type: BLOOD SPECIMENOrdering Facility: [facility] Address: [address] [place] [address] Performed By: #### 5 7021-8 ####[facility] [id number] [place] [address] Differential cell count method Nom (Bld) Auto Normal [facility] Comment on above: Order Comment: Speci men Type: BLOOD SPECIMENOrdering Facility: [facility] Address: [address] [place] [address] Performed By: #### 5 7021-8 ####[facility] [id number] [place] [address] Eosinophils (Bld) [#/Vol] 0.17 10*3/uL Normal <0.46 [facility] Comment on above: Order Comment: Speci men Type: BLOOD SPECIMENOrdering Facility: [facility] Address: [address] [place] [address] Performed By: #### 5 7021-8 ####[facility] [id number] [place] [address] Eosinophils/100 WBC (Bld) 1.6 % Normal [facility] Comment on above: Order Comment: Speci men Type: BLOOD SPECIMENOrdering Facility: [facility] Address: [address] [place] [address] Performed By: #### 5 7021-8 ####[facility] [id number] [place] [address] Erythrocyte distribution width (RBC) [Ratio] 12.7 % Normal 11.5-15.0 [facility] Comment on above: Order Comment: Speci men Type: BLOOD SPECIMENOrdering Facility: [facility] Address: [address] [place] [address] Performed By: #### 5 7021-8 ####[facility] [id number] [place] [address] Hematocrit (Bld) [Volume fraction] 40.7 % Normal 36.0-46.0 [facility] Comment on above: Order Comment: Speci men Type: BLOOD SPECIMENOrdering Facility: [facility] Address: [address] [place] [address] Performed By: #### 5 7021-8 ####[facility] [id number] [place] [address] Hemoglobin (Bld) [Mass/Vol] 13.4 g/dL Normal 11.5-15.5 [facility] Comment on above: Order Comment: Speci men Type: BLOOD SPECIMENOrdering Facility: [facility] Address: [address] [place] [address] Performed By: #### 5 7021-8 ####[facility] [id number] [place] [address] Immature granulocytes (Bld) [#/Vol] 10*3/uL Normal <0.10 [facility] Comment on above: Order Comment: Speci men Type: BLOOD SPECIMENOrdering Facility: [facility] Address: [address] [place] [address] Performed By: #### 5 7021-8 ####[facility] [id number] [place] [address] Immature granulocytes/100 WBC (Bld) 0.2 % Normal [facility] Comment on above: Order Comment: Speci men Type: BLOOD SPECIMENOrdering Facility: [facility] Address: [address] [place] [address] Performed By: #### 5 7021-8 ####[facility]CLIA [id number] [place] [address] Lymphocytes (Bld) [#/Vol] 1.80 10*3/uL Normal 1.00-4.00 [facility] Comment on above: Order Comment: Speci men Type: BLOOD SPECIMENOrdering Facility: [facility] Address: [address] [place] [address] Performed By: #### 5 7021-8 ####[facility] LABCLIA [id number] [place] [address] Lymphocytes/100 WBC (Bld) 16.9 % Normal [facility] Comment on above: Order Comment: Speci men Type: BLOOD SPECIMENOrdering Facility: [facility] Address: [address] [place] [address] Performed By: #### 5 7021-8 ####[facility] LABIA [id number] [place] [address] MCH (RBC) [Entitic mass] 31.2 pg Normal 26.0-34.0 [facility] Comment on above: Order Comment: Speci men Type: BLOOD SPECIMENOrdering Facility: [facility] Address: [address] [place] [address] Performed By: #### 5 7021-8 ####[facility] [id number] [place] [address] MCHC (RBC) [Mass/Vol] 32.9 g/dL Normal 30.5-36.0 [facility] Comment on above: Order Comment: Speci men Type: BLOOD SPECIMENOrdering Facility: [facility] Address: [address] [place] [address] Performed By: #### 5 7021-8 ####[facility] LABCLIA [id number] [place] [address] MCV (RBC) [Entitic vol] 94.7 fL Normal 80.0-100.0 [facility] Comment on above: Order Comment: Speci men Type: BLOOD SPECIMENOrdering Facility: [facility] Address: [address] [place] [address] Performed By: #### 5 7021-8 ####[facility] [id number] [place] [address] Monocytes (Bld) [#/Vol] 0.88 10*3/uL High <0.87 [facility] Comment on above: Order Comment: Speci men Type: BLOOD SPECIMENOrdering Facility: [facility] Address: [address] [place] [address] Performed By: #### 5 7021-8 ####[facility] [id number] [place] [address] Monocytes/100 WBC (Bld) 8.3 % Normal [facility] Comment on above: Order Comment: Speci men Type: BLOOD SPECIMENOrdering Facility: [facility] Address: [address] [place] [address] Performed By: #### 5 7021-8 ####[facility] [id number] [place] [address] Neutrophils (Bld) [#/Vol] 7.74 10*3/uL High 1.45-7.50 [facility] Comment on above: Order Comment: Speci men Type: BLOOD SPECIMENOrdering Facility: [facility] Address: [address] [place] [address] Performed By: #### 5 7021-8 ####[facility] [id number] [place] [address] Neutrophils/100 WBC (Bld) 72.5 % Normal [facility] Comment on above: Order Comment: Speci men Type: BLOOD SPECIMENOrdering Facility: [facility] Address: [address] [address] Performed By: #### 5 7021-8 ####[facility] [id number] [place] [address] Nucleated RBC (Bld) [#/Vol] 10*3/uL Normal <0.01 [facility] Comment on above: Order Comment: Speci men Type: BLOOD SPECIMENOrdering Facility: [facility] Address: [address] [address] Performed By: #### 5 7021-8 ####[facility] [id number] [place] [address] Nucleated RBC/100 WBC (Bld) [Ratio] 0.0 /100 WBC Normal [facility] Comment on above: Order Comment: Speci men Type: BLOOD SPECIMENOrdering Facility: [facility] Address: [address] [address] Performed By: #### 5 7021-8 ####[facility] [id number] [place] [address] Platelet mean volume (Bld) [Entitic vol] 10.7 fL Normal 9.0-12.7 [facility] Comment on above: Order Comment: Speci men Type: BLOOD SPECIMENOrdering Facility: [facility] Address: [address] [address] Performed By: #### 5 7021-8 ####[facility] [id number] [place] [address] Platelets (Bld) [#/Vol] 280 10*3/uL Normal 150-400 [facility] Comment on above: Order Comment: Speci men Type: BLOOD SPECIMENOrdering Facility: [facility] Address: [address] [address] Performed By: #### 5 7021-8 ####[facility] [id number] [place] [address] RBC (Bld) [#/Vol] 4.30 10*6/uL Normal 3.90-5.20 [facility] Comment on above: Order Comment: Speci men Type: BLOOD SPECIMENOrdering Facility: [facility] Address: [address] [place], [place] [id number] Performed By: #### 5 7021-8 ####[facility] [id number] [place] [address] WBC (Bld) [#/Vol] 10.66 10*3/uL Normal 3.70-11.00 [facility] Comment on above: Order Comment: Speci men Type: BLOOD SPECIMENOrdering Facility: [facility] Address: [address] [place] [address] Performed By: #### 5 7021-8 ####[facility] LABCLIA [id number] [place] [address] CNOVSPon 04-29-2023 CNOVSP Visit (SP) Office (H EMASA) -- ANDREW BARROS ([id number]) 1945 F Date Time Provider Department 04/29/23 3:15 PM SANDEEP LENZ During your visit today, we recorded the following information about you: Temperature Pulse Respiration Blood pressure 97 degrees 66/minute 16/minute 153/66 Weight Height 58.2 kg 1.626 m Sandeep Lenz MD 05/05/2023 6:04 PM Signed NAME: Andrew Barros [facility] NO.: [id number] DATE OF SERVICE: April 29, 2023 (Eduardo) Some elements in this clinic note that are critical to medical decision making have been carefully reviewed and included from a prior clinic note dated: January 08, 2022 (Eduardo) Referring Provider: Eduardo Sharpe Additional Clinicians involved in Andrew Barros's care: CC: History of Breast Cancer ASSESSMENT: 77 year old woman with Left breast upper outer quadrant, invasive ductal carcinoma, ER postive, NC positive, 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 Diagnosed 2018. Oncotype testing recurrence score 12 Stopped anticoagulation due to intracranial hemorrhage in 10/2021. Mildly elevated calcium - will recheck in future. PLAN: Continue Arimidex. Stop Calcium Continue Vitamin D. Zometa for hypercalcemia later this week Repeat labs and tumor markers prior to zometa Bone scan - TBH is fine. RTC after Bone scan TREATMENT TO DATE: 3. Started arimidex September 26, 2018 2. Completed radiation September 10, 2018 1. Left breast lumpectomy and SNB, June 05, 2018. HPI: Updated Visit, April 29, 2023: Here with her daughter Janki today. Doing well. Hypercalcemia Getting worked up for ARF. Updated Visit, January 08, 2022: Mammogram results pending from 01/05/2022 11/14/2021 had intracranial hemorrhage with intracerebral hematoma in the right tempora lobe due to HTN and warfarin. Anticoagulation was for A-fib. Had been On Xarelto up until 3 months prior to hemorrhage but needed something cheaper. Updated Visit, July 21, 2021: Andrew Barros returns for scheduled follow-up. Since her last visit there has been no significant medical changes. She has been on Arimidex for 3 years and is tolerating it well. She does experience hot flashes. She denies any muscle and joint aches. She remains on calcium, vitamin D plus a multivitamin. She offers no new complaints today. Overall, she is doing well with no new issues, problems or concerns. 04/24/2021 DEXA scan Impression: World Health Organization classification: Normal-low fracture risk. Updated Visit, April 20, 2021: Andrew is a 75 year old female who presents for her annual visit and to transition her care from her prior physician Dr. Herman. She tells me that her from COVID-19 in 08/2020 age 80. She also had COVID and was hospitalized but (obviously) recovered. The patient remains on Arimidex and is tolerating it well. She has no symptoms or concerns for recurrence. At this time she will continue with that as planned but will also need bone density and to start on Vit-D + Calcium. Mammograms at [facility] on 01/04/2021 Bi-Rads 2 benign. REVIEW OF SYSTEMS Per HPI and otherwise negative by full review of organ systems. ECOG PERFORMANCE STATUS: 0 PHYSICAL EXAMINATION: Vitals: BP 153/66 Pulse 66 Temp (Src) 97 (Temporal) Resp 16 Ht 5' 4.016 (1.63m) Wt 128 lb 6.4 oz (58.2kg) SpO2 96% BMI 22.03 kg/(m2). Body surface area is 1.62 meters squared. General:This is an age-appropriate patient in no acute distress. Head: Atraumatic, symmetric with no lesions visible. Eyes: Pupils equally round and reactive to light, extraocular muscles intact. Neck: Supple Mouth: Mucous membranes are moist, no thrush is noted. Lungs: Clear to auscultation bilaterally with no wheezes crackles or rales. Cardiovascular: Regular rate and rhythm with no murmurs or gallops. No Afib Peripheral pulses: Normal. Gastrointestinal: Soft, nontender, normoactive bowel sounds, with no appreciable hepatosplenomegaly. Musculoskeletal: No appreciable bony abnormalities or tenderness. Extremities: Lower extremities without edema. Neurologic: Nonfocal to gross visualization. Alert and oriented ?3. Psychiatric: No evidence of inappropriate anxiety or depression. Skin: No overt rashes wounds or petechiae. Lymph node exam: No appreciable lymphadenopathy in cervical supraclavicular or axillary lymph node chains. Chaperoned breast exam normal right female breast. Left breast with upper outer quadrant scar healed and with evidence of recurring mass. ALLERGIES: ALLERGIES Allergen Reactions Vlamnlb-Uwh-Etf Red* Unknown Other reaction(s): AOF MEDICATIONS: doxazosin (CARDURA) 4 mg tablet Take 4 mg by mouth daily at bedtime. aspirin (ASPIR-81 ORAL) Take 81 mg by mo (more content not included)... Normal [facility] Comprehensive metabolic 2000 panelon 04-29-2023 Albumin [Mass/Vol] 4.4 g/dL Normal 3.9-4.9 [facility] Comment on above: Order Comment: Speci men Type: BLOOD SPECIMENOrdering Facility: [facility] Address: [address] [place] [address] Performed By: #### 2 4323-8 ####[facility] [id number] [place] [address] ALP [Catalytic activity/Vol] 98 U/L Normal 34-123 [facility] Comment on above: Order Comment: Speci men Type: BLOOD SPECIMENOrdering Facility: [facility] Address: [address] [address] Performed By: #### 2 4323-8 ####[facility] [id number] [place] [address] ALT [Catalytic activity/Vol] 15 U/L Normal 7-38 [facility] Comment on above: Order Comment: Speci men Type: BLOOD SPECIMENOrdering Facility: [facility] Address: [address] [place] [address] Performed By: #### 2 4323-8 ####[facility] [id number] [place] [address] Anion gap [Moles/Vol] 15 mmol/L Normal 9-18 [facility] Comment on above: Order Comment: Speci men Type: BLOOD SPECIMENOrdering Facility: [facility] Address: [address] [address] Performed By: #### 2 4323-8 ####[facility] [id number] [place] [address] AST [Catalytic activity/Vol] 20 U/L Normal 13-35 [facility] Comment on above: Order Comment: Speci men Type: BLOOD SPECIMENOrdering Facility: [facility] Address: [address] [address] Performed By: #### 2 4323-8 ####[facility] [id number] [place] [address] Bilirubin [Mass/Vol] 0.4 mg/dL Normal 0.2-1.3 [facility] Comment on above: Order Comment: Speci men Type: BLOOD SPECIMENOrdering Facility: [facility] Address: [address] [place] [address] Performed By: #### 2 4323-8 ####[facility] [id number] [place] [address] Calcium [Mass/Vol] 11.1 mg/dL High 8.5-10.2 [facility] Comment on above: Order Comment: Speci men Type: BLOOD SPECIMENOrdering Facility: [facility] Address: [address] [place] [address] Performed By: #### 2 4323-8 ####[facility] [id number] [place] [address] Chloride [Moles/Vol] 98 mmol/L Normal 97-105 [facility] Comment on above: Order Comment: Speci men Type: BLOOD SPECIMENOrdering Facility: [facility] Address: [address] [place] [address] Performed By: #### 2 4323-8 ####[facility]CL[facility] [id number] [place] [address] CO2 [Moles/Vol] 28 mmol/L Normal 22-30 [facility] Comment on above: Order Comment: Speci men Type: BLOOD SPECIMENOrdering Facility: [facility] Address: [address] [place] [address] Performed By: #### 2 4323-8 ####[facility] [id number] [place] [address] Creatinine [Mass/Vol] 1.49 mg/dL High 0.58-0.96 [facility] Comment on above: Order Comment: Speci men Type: BLOOD SPECIMENOrdering Facility: [facility] Address: [address] [place] [address] Performed By: #### 2 4323-8 ####[facility]CL[facility] [id number] [place] [address] ESTIMATED GLOMERULAR FILTRATION RATE 36 mL/min/1.73m??? Low >=60 [facility] Comment on above: Order Comment: Speci men Type: BLOOD SPECIMENOrdering Facility: [facility] Address: [address] [address] Result Comment: Sugar mated Glomerular Filtration Rate (eGFR) is calculated using the 2020 CKD-EPI creatinine equation. This equation utilizes serum creatinine, sex, and age as parameters. The creatinine assay has traceable calibration to isotope dilution-mass spectrometry. Refer to KDIGO guidelines for clinical interpretation. In patients with unstable renal function, e.g. those with acute kidney injury, the eGFR may not accurately reflect actual GFR. Performed By: #### 2 4323-8 ####[facility]CL[facility] [id number] [place] [address] Glucose [Mass/Vol] 135 mg/dL High 74-99 [facility] Comment on above: Order Comment: Speci men Type: BLOOD SPECIMENOrdering Facility: [facility] Address: [address] [place] [address] Result Comment: The [place] Diabetes Association (ADA) provides guidance for cutoff values for fasting glucose and random glucose. The ADA defines fasting as no caloric intake for at least 8 hours. Fasting plasma glucose results between 100 to 125 mg/dL indicate increased risk for diabetes (prediabetes). Fasting plasma glucose results greater than or equal to 126 mg/dL meet the criteria for diagnosis of diabetes. In the absence of unequivocal hyperglycemia, results should be confirmed by repeat testing. In a patient with classic symptoms of hyperglycemia or hyperglycemic crisis, random plasma glucose results greater than or equal to 200 mg/dL meet the criteria for diagnosis of diabetes. Reference: Standards of Medical Care in Diabetes 2016, [place] [employer]. Diabetes Care. 2016.39(Suppl 1). Performed By: #### 2 4323-8 ####[facility]CLIA [id number] [place] [address] Potassium [Moles/Vol] 3.9 mmol/L Normal 3.7-5.1 [facility] Comment on above: Order Comment: Speci men Type: BLOOD SPECIMENOrdering Facility: [facility] Address: [address] [place] [address] Performed By: #### 2 4323-8 ####[facility]CL[facility] [id number] [place] [address] Protein [Mass/Vol] 7.4 g/dL Normal 6.3-8.0 [facility] Comment on above: Order Comment: Speci men Type: BLOOD SPECIMENOrdering Facility: [facility] Address: [address] [place] [address] Performed By: #### 2 4323-8 ####[facility]CL[facility] [id number] [place] [address] Sodium [Moles/Vol] 141 mmol/L Normal 136-144 [facility] Comment on above: Order Comment: Speci men Type: BLOOD SPECIMENOrdering Facility: [facility] Address: [address] [place] [address] Performed By: #### 2 4323-8 ####[facility]CL[facility] [id number] [place] [address] Urea nitrogen [Mass/Vol] 38 mg/dL High 7-21 [facility] Comment on above: Order Comment: Speci men Type: BLOOD SPECIMENOrdering Facility: [facility] Address: [address] [place] [address] Performed By: #### 2 4323-8 ####[facility]CL[facility] [id number] [place] [address] Office Visiton 04-01-2023 Follow-up visit [id number] Barros,Wayne barrientosdomenica Lazara 1945 F Date Provider Department Center 04/01/2023 [facility] Family History Problem Relation Age of Onset Coronary artery disease Mother Coronary artery disease Father Coronary artery disease Sister Coronary artery disease Brother Family Status - Relation Status Age at Mother Father Sister Brother Level of Service:28870 NC OFFICE/OUTPATIENT ESTABLISHED MOD MDM 30-39 MIN Reason for Visit and Comments: Atrial Fibrillation [80] Hypertension [714910] [facility] 36on 03-27-2023 36 Called and discussed . Thanks. [facility] Office Visiton 01-14-2023 Follow-up visit [id number] Wayne Barros A 1945 F Date Provider Department Center 01/14/2023 [id number] RODRÍGUEZ KASHIF [facility] Family History Problem Relation Age of Onset Coronary artery disease Mother Coronary artery disease Father Coronary artery disease Sister Coronary artery disease Brother Family Status - Relation Status Age at Mother Father Sister Brother Level of Service:81421 NC OFFICE/OUTPATIENT ESTABLISHED MOD MDM 30-39 MIN Reason for Visit and Comments: Atrial Fibrillation [80] Congestive Heart Failure [127] Hypertension [860561] Valve Disorder [3372] [facility] Office Visiton 09-03-2022 Follow-up visit [id number] Wayne Barros A 1945 F Date Provider Department Center 09/03/2022 RAHEEL LEÓN KASHIF Maur[facility] Family History Problem Relation Age of Onset Coronary artery disease Mother Coronary artery disease Father Coronary artery disease Sister Coronary artery disease Brother Family Status - Relation Status Age at Mother Father Sister Brother Level of Service:51346 [place] OFFICE/OUTPATIENT ESTABLISHED MOD MDM 30-39 MIN Reason for Visit and Comments: Hospital Follow-up [832] [facility] BNPon 08-24-2022 Natriuretic peptide B (Bld) [Mass/Vol] 1296.0 pg/mL Normal <=1,800.0 [facility] Comment on above: Performed By: #### B INTERNAL CONTROLS SPECIALIST, CMP ####[facility] Ambnfelqus[address] [place] [phone] Reis CBC W MANUAL DIFFon 08-24-20 22 ATYPICAL LYMPH # Normal [facility] Comment on above: Performed By: #### C BCMAN ####[facility] Odcemhzkuh[address] [place] [phone]. Swathi Reis ATYPICAL LYMPH % Normal [facility] Comment on above: Performed By: #### C BCMAN ####[facility] Ezaqxwtejx[address] [place] [address]Dr. Yitracy Reis BAND # 0.1 103/ul Normal 0.0-0.3 [facility] Comment on above: Performed By: #### C BCMAN ####[facility] Tixoqifwxb99[address] [place] [address]Dr. Yilan Reis BAND % 1 % Normal 0-5 [facility] Comment on above: Performed By: #### C BCMAN ####[facility] Vizmtiurcb8659 [place] [address]Dr. Swathi Reis BASOM # 0.00 103/ul Normal 0.00-0.10 [facility] Comment on above: Performed By: #### C BCYUN ####[facility] Cbechhrjwm[address] [place], [place] [address]Dr. Swathi Reis BASOM % 0.0 % Critically low 0.2-2.0 [facility] Comment on above: Performed By: #### C BCYUN ####[facility] Fifxdfygln90[address] [place] [address]Dr. Yitracy Reis BLAST # Normal [facility] Comment on above: Performed By: #### C NGA ####[facility] Eeeknytavf77[address] [place] [address]Dr. Swathi Reis BLAST % Normal [facility] Comment on above: Performed By: #### C BCYUN ####[facility] Yllphzzbhf6379 [place] [address]Dr. Swathi Reis CORRECTED WBC Normal 4.0-11.0 [facility] Comment on above: Performed By: #### C BCMAN ####[facility] Szyimiryjv[address] [place], [place] [address]Dr. Swathi Reis EOS # 0.39 103/ul Normal 0.00-0.70 [facility] Comment on above: Performed By: #### C BCYUN ####[facility] Aeqrucpqir[address] [place], [place] [address]Dr. Swathi Resi EOS% 3.0 % Normal 0.9-7.0 [facility] Comment on above: Performed By: #### C NGA ####[facility] Lhdbpjfugb9152 [place] [phone]. Swathi Reis HCT 32.6 % Critically low 36.0-48.0 [facility] Comment on above: Performed By: #### C NGA ####[facility] Zgoxmpnccd6166 [place] [phone]. Swathi Reis HGB 10.6 g/dl Critically low 12.0-16.0 [facility] Comment on above: Performed By: #### C NGA ####[facility] Eomwxkixwm2578 [place] [address]Dr. Swathi Reis HYPOCHROMASIA SLIGHT Normal [facility] Comment on above: Performed By: #### C NGA ####[facility] Uqejsuxuzu9199 [place] [address]Dr. Swathi Reis LYMPHM # 1.04 103/ul Critically low 1.20-3.80 [facility] Comment on above: Performed By: #### C NGA ####[facility] Zmjzhkjdop8164 [place] [phone]. Swathi Reis LYMPHM% 8.0 % Critically low 20.5-60.0 [facility] Comment on above: Performed By: #### C NGA ####[facility] Qzbkldjjuv0601 [place] [phone]. Swathi Reis MCH 29.2 pg Normal 26.7-34.0 [facility] Comment on above: Performed By: #### C NGA ####[facility] Aiqqnakemm0094 [place] [phone]. Swathi Reis MCHC 32.5 g/dl Normal 29.9-35.2 [facility] Comment on above: Performed By: #### C NGA ####[facility] Iulfprfazt5167 [place] [phone]. Swathi Reis MCV 89.8 fL Normal 81.0-99.0 [facility] Comment on above: Performed By: #### C NGA ####[facility] Kydmpmcrpe5507 [place] [address]Dr. Swathi Reis METAMYELOCYTE # Normal [facility] Comment on above: Performed By: #### C NGA ####[facility] Gynmsbtkha3839 [place] [phone]. Swathi Reis METAMYELOCYTE % Normal [facility] Comment on above: Performed By: #### C NGA ####[facility] Cfnodgiele0605 [place] [address]Dr. Swathi Reis MONOM# 1.17 103/ul Critically high 0.30-0.80 [facility] Comment on above: Performed By: #### C NGA ####[facility] Gceygqzcca[address] [place], [place] [address]Dr. Swathi Reis MONOM% 9.0 % Normal 1.7-12.0 [facility] Comment on above: Performed By: #### C NGA ####[facility] Xyvmnkuftb[address] [place], [place] [address]Dr. Swathi Chato MPV 10.0 fL Normal 9.5-13.5 [facility] Comment on above: Performed By: #### C NGA ####[facility] Udyxhyvdzi9[address] [place], [place] [address]Dr. Swathi Reis MYELOCYTE # Normal [facility] Comment on above: Performed By: #### C NGA ####[facility] Vpgtldkpas[address] [place], [place] [address]Dr. Swathi Reis MYELOCYTE % Normal [facility] Comment on above: Performed By: #### C NGA ####[facility] Xtsjnlyopb[address] [place], [place] [address]Dr. Swathi Reis NRBC Normal [facility] Comment on above: Performed By: #### C NGA ####[facility] Hluhwsuoru55[address] [place] [address]Dr. Swathi Reis PLT 353 103/ul Normal 150-450 [facility] Comment on above: Performed By: #### C NGA ####[facility] Fpdxsxpyqs9397 [place], [place] [address]Dx. Swathi Reis RBC 3.63 106/ul Critically low 4.20-5.40 [facility] Comment on above: Performed By: #### C NGA ####[facility] Uultkmsmbs2735 [place], [place] [address]Pt. Swathi Reis RDW 13.6 % Normal 11.0-15.0 [facility] Comment on above: Performed By: #### C NGA ####[facility] Sttorbggdh9835 [place], [place] [address]Ua. Swathi Reis SEG # 10.27 103/ul Critically high 1.40-6.50 [facility] Comment on above: Performed By: #### C NGA ####[facility] Cdeztbabix3235 [place] [phone]. Swathi Reis SEG % 79.0 % Critically high 43.0-75.0 [facility] Comment on above: Performed By: #### C NGA ####[facility] Vavafuclmz4236 [place], [place] [address]Bo. Swathi Reis WBC 13.0 103/ul Critically high 4.0-11.0 [facility] Comment on above: Performed By: #### C NGA ####[facility] Fmhwowawde7732 [place] [phone]. Swathi Chato DIGOXINon 08-24-2022 DIG 1.8 ng/mL Normal 0.9-2.0 [facility] Comment on above: Performed By: #### D IG ####[facility] Krtwemttgm0300 [place] [phone]. Swathi Reis PROF 14(COMP METB)on 022 Albumin [Mass/Vol] 2.4 g/dL Critically low 3.4-5.0 [facility] Comment on above: Performed By: #### B INTERNAL CONTROLS SPECIALIST, CMP ####[facility] Xdpeyegjeo5755 [place] [phone]. Swathi Chato Albumin/Globulin [Mass ratio] 0.5 {ratio} Normal [facility] Comment on above: Performed By: #### B INTERNAL CONTROLS SPECIALIST, CMP ####[facility] Gkjzfnhggr7844 [place] [phone]. Swathi Reis ALP [Catalytic activity/Vol] 93 U/L Normal 46-116 [facility] Comment on above: Performed By: #### B INTERNAL CONTROLS SPECIALIST, CMP ####[facility] Ghrpeeadsl0413 [place] [phone]. Swathi Reis ALT [Catalytic activity/Vol] 8 U/L Critically low 14-59 [facility] Comment on above: Performed By: #### B INTERNAL CONTROLS SPECIALIST, CMP ####[facility] Wukknkfsre5304 [place] [phone]. Swathi Reis Anion gap [Moles/Vol] 11.2 mmol/L Normal [facility] Comment on above: Performed By: #### B INTERNAL CONTROLS SPECIALIST, CMP ####[facility] Aogfosucaw[address] [place], [place] [address]Dr. Swathi Reis AST [Catalytic activity/Vol] 14 U/L Critically low 15-37 [facility] Comment on above: Performed By: #### B INTERNAL CONTROLS SPECIALIST, CMP ####[facility] Pxpsqjwpuw0414 [place] [phone]. Swathi Chato Bilirubin [Mass/Vol] 0.4 mg/dL Normal 0.2-1.0 [facility] Comment on above: Performed By: #### B INTERNAL CONTROLS SPECIALIST, CMP ####[facility] Mtqpgichtg6714 [place] [address]Dr. Swathi Chato Calcium [Mass/Vol] 9.4 mg/dL Normal 8.5-10.1 [facility] Comment on above: Performed By: #### B INTERNAL CONTROLS SPECIALIST, CMP ####[facility] Zaeziprnoa3980 [place] [phone]. Swathi Reis Chloride [Moles/Vol] 101 mmol/L Normal 98-107 [facility] Comment on above: Performed By: #### B INTERNAL CONTROLS SPECIALIST, CMP ####[facility] Zrdzvsehuj5869 [place] [address]Dr. Swathi Reis CO2 [Moles/Vol] 31.0 mmol/L Normal 21.0-32.0 [facility] Comment on above: Performed By: #### B INTERNAL CONTROLS SPECIALIST, CMP ####[facility] Etfxyepjfr5767 [place] [address]Dr. Swathi Reis Creatinine [Mass/Vol] 1.49 mg/dL Critically high 0.55-1.02 [facility] Comment on above: Performed By: #### B INTERNAL CONTROLS SPECIALIST, CMP ####[facility] Zsnuzqhzgj4525 [place] [address]Dr. Swathi Reis EGFR-AF CROATIAN 41 mL/min/1.73m2 Critically low >=60 [facility] Comment on above: Performed By: #### B INTERNAL CONTROLS SPECIALIST, CMP ####[facility] Tkmpbwbaev[address] [place], [place] [address]Dr. Swathi Reis EGFR-NON AF CROATIAN 34 mL/min/1.73m2 Critically low >=60 [facility] Comment on above: Performed By: #### B INTERNAL CONTROLS SPECIALIST, CMP ####[facility] Khfljyxphk940[address] [place], [place] [address]Dr. Swathi Reis Globulin (S) [Mass/Vol] 4.8 g/dL Normal [facility] Comment on above: Performed By: #### B INTERNAL CONTROLS SPECIALIST, CMP ####[facility] Ucidxwbhks154[address] [place], [place] [address]Dr. Swathi Reis Glucose [Mass/Vol] 153 mg/dL Critically high 74-106 [facility] Comment on above: Performed By: #### B INTERNAL CONTROLS SPECIALIST, CMP ####[facility] Nwnbmoqpac054[address] [place], [place] [address]Dr. Swathi Reis Potassium [Moles/Vol] 4.2 mmol/L Normal 3.5-5.1 [facility] Comment on above: Performed By: #### B INTERNAL CONTROLS SPECIALIST, CMP ####[facility] Xfocoeftnq84[address] [place], [place] [address]Dr. Swathi Reis Protein [Mass/Vol] 7.2 g/dL Normal 6.4-8.2 [facility] Comment on above: Performed By: #### B INTERNAL CONTROLS SPECIALIST, CMP ####[facility] Mkymiwtzbb389[address] [place], [place] [address]Dr. Swathi Reis Sodium [Moles/Vol] 139 mmol/L Normal 136-145 [facility] Comment on above: Performed By: #### B INTERNAL CONTROLS SPECIALIST, CMP ####[facility] Qzdfwldigw758[address] [place], [place] [address]Dr. Swathi Reis Urea nitrogen [Mass/Vol] 22.0 mg/dL Critically high 7.0-18.0 [facility] Comment on above: Performed By: #### B INTERNAL CONTROLS SPECIALIST, CMP ####[facility] Lapasqrggz617[address] [place], [place] [address]Dr. Swathi Reis Urea nitrogen/Creatinine [Mass ratio] 14.8 mg/mg Normal [facility] Comment on above: Performed By: #### B INTERNAL CONTROLS SPECIALIST, CMP ####[facility] Yastsvbkut69[address] [place], [place] [address]Dr. Swathi Reis BNPon 08-23-2022 Natriuretic peptide B (Bld) [Mass/Vol] 1755.0 pg/mL Normal <=1,800.0 [facility] Comment on above: Performed By: #### B INTERNAL CONTROLS SPECIALIST, CMP ####[facility] Zahhljxuak71[address] [place], [place] [address]Dr. Swathi Reis CBC AUTO DIFFon 08-23-2022 BASO # 0.1 103/ul Normal 0.0-0.1 [facility] Comment on above: Performed By: #### C BC ####[facility] Eeepegpbsm[address] [place], [place] [address]Dr. Swathi Chato Basophils/100 WBC (Bld) 0.7 % Normal 0.2-2.0 [facility] Comment on above: Performed By: #### C BC ####[facility] Ccdjcpdsif9[address] [place], [place] [address]Dr. Swathi Chato EO # 0.2 103/ul Normal 0.0-0.7 [facility] Comment on above: Performed By: #### C BC ####[facility] Yrxfpitrrw525[address] [place], [place] [address]Dr. Swathi Chato Eosinophils/100 WBC (Bld) 2.2 % Normal 0.9-7.0 [facility] Comment on above: Performed By: #### C BC ####[facility] Ezgyzvhxdy7550 [place] [address]Dr. Swathi Reis Erythrocyte distribution width (RBC) [Ratio] 13.6 % Normal 11.0-15.0 [facility] Comment on above: Performed By: #### C BC ####[facility] Nyemxqoyev1846 [place] [address]Dr. Swathi Reis Hematocrit (Bld) [Volume fraction] 33.1 % Critically low 36.0-48.0 [facility] Comment on above: Performed By: #### C BC ####[facility] Ecolepljjj184[address] [place], [place] [address]Dr. Swathi Reis Hemoglobin (Bld) [Mass/Vol] 10.6 g/dL Critically low 12.0-16.0 [facility] Comment on above: Performed By: #### C BC ####[facility] Lsyflkcqvp468[address] [place], [place] [address]Dr. Swathi Reis IG # 0.12 10e3/ul Critically high 0.00-0.03 [facility] Comment on above: Performed By: #### C BC ####[facility] Gfsuckzkso[address] [place], [place] [address]Dr. Swathi Reis IG % 1.1 % Critically high 0.0-0.5 [facility] Comment on above: Performed By: #### C BC ####[facility] Xiprqzalgw[address] [place], [place] [address]Dr. Swathi Reis LYMPH # 1.6 103/ul Normal 1.2-3.8 [facility] Comment on above: Performed By: #### C BC ####[facility] Aprjcyoixe759[address] [place], [place] [address]Dr. Swathi Reis Lymphocytes/100 WBC (Bld) 14.6 % Critically low 20.5-60.0 [facility] Comment on above: Performed By: #### C BC ####[facility] Zdljnvsbrl167[address] [place], [place] [address]Dr. Swathi Reis MANUAL DIFF REQ NO Normal [facility] Comment on above: Performed By: #### C BC ####[facility] Ixtqoijzec4558 [place] [phone]. Swathi Reis MCH (RBC) [Entitic mass] 29.0 pg Normal 26.7-34.0 [facility] Comment on above: Performed By: #### C BC ####[facility] Ftuoyclswp9347 [place] [phone]. Swathi Reis MCHC (RBC) [Mass/Vol] 32.0 g/dL Normal 29.9-35.2 [facility] Comment on above: Performed By: #### C BC ####[facility] Mgtwblwtfb4168 [place] [address]Dr. Swathi Chato MCV (RBC) [Entitic vol] 90.4 fL Normal 81.0-99.0 [facility] Comment on above: Performed By: #### C BC ####[facility] Nzpukipyub[address] [place], [place] [address]DrOtto Wylietracy Chato MONO # 1.4 103/ul Critically high 0.3-0.8 [facility] Comment on above: Performed By: #### C BC ####[facility] Vwymhsmdsk[address] [place], [place] [address]DrOtto Swathi Chato Monocytes/100 WBC (Bld) 12.8 % Critically high 1.7-12.0 [facility] Comment on above: Performed By: #### C BC ####[facility] Msukfqceow39[address] [place], [place] [address]DrOtto Swathi Reis NEUT # 7.5 103/ul Critically high 1.4-6.5 [facility] Comment on above: Performed By: #### C BC ####[facility] Lyfaqyttoz9[address] [place], [place] [address]DrOtto Swathi Chato Neutrophils/100 WBC (Bld) 68.6 % Normal 43.0-75.0 [facility] Comment on above: Performed By: #### C BC ####[facility] Hjspeuohgm[address] [place], [place] [id number] Inessatracy Reis Platelet mean volume (Bld) [Entitic vol] 10.3 fL Normal 9.5-13.5 [facility] Comment on above: Performed By: #### C BC ####[facility] Bzzumlgait1132 [place] [phone]. Swathi Reis PLT 387 103/ul Normal 150-450 [facility] Comment on above: Performed By: #### C BC ####[facility] Uqcfwaftea4156 [place] [phone]. Swathi Reis RBC 3.66 106/ul Critically low 4.20-5.40 [facility] Comment on above: Performed By: #### C BC ####[facility] Klfkhwavgm7611 [place] [phone]. Swathi Reis WBC 11.0 103/ul Normal 4.0-11.0 [facility] Comment on above: Performed By: #### C BC ####[facility] Qeoeqdrpji6655 [place] [phone]. Swathi Chato DIGOXINon 08-23-2022 DIG 1.6 ng/mL Normal 0.9-2.0 [facility] Comment on above: Performed By: #### D IG ####[facility] Gljuvnitcs4059 [place] [phone]. Swathi Reis POINT OF CARE GLUCOSEon Glucose [Mass/Vol] 167 mg/dL Critically high 74-106 [facility] Comment on above: Performed By: #### P OCGLUC ####[facility] Vtprqlwfxe3832 [place] [address]Dr. Swathi Chato Glucose [Mass/Vol] 114 mg/dL Critically high 74-106 [facility] Comment on above: Performed By: #### P OCGLUC ####[facility] Gsmqzhydmm4434 [place] [address]Dr. Swathi Chato Glucose [Mass/Vol] 272 mg/dL Critically high 74-106 [facility] Comment on above: Performed By: #### P OCGLUC ####[facility] Upxbtytnmw5951 [place] [address]DrOtto Reis PROF 14(COMP METB)on 022 Albumin [Mass/Vol] 2.4 g/dL Critically low 3.4-5.0 [facility] Comment on above: Performed By: #### B INTERNAL CONTROLS SPECIALIST, CMP ####[facility] Chaiejyzqg5511 [place] [address]Dr. Swathi Reis Albumin/Globulin [Mass ratio] 0.5 {ratio} Normal [facility] Comment on above: Performed By: #### B INTERNAL CONTROLS SPECIALIST, CMP ####[facility] Qdepwsmtan7302 [place] [address]Dr. Swathi Reis ALP [Catalytic activity/Vol] 104 U/L Normal 46-116 [facility] Comment on above: Performed By: #### B INTERNAL CONTROLS SPECIALIST, CMP ####[facility] Tbpoyoyxsz2772 [place] [address]Dr. Swathi Reis ALT [Catalytic activity/Vol] 7 U/L Critically low 14-59 [facility] Comment on above: Performed By: #### B INTERNAL CONTROLS SPECIALIST, CMP ####[facility] Znjyrwkmkd2904 [place] [address]Dr. Swathi Reis Anion gap [Moles/Vol] 11.1 mmol/L Normal [facility] Comment on above: Performed By: #### B INTERNAL CONTROLS SPECIALIST, CMP ####[facility] Cavvlckbrp640[address] [place], [place] [address]Dr. Swathi Reis AST [Catalytic activity/Vol] 19 U/L Normal 15-37 [facility] Comment on above: Performed By: #### B INTERNAL CONTROLS SPECIALIST, CMP ####[facility] Sgnzuasndb5054 [place] [address]Dr. Swathi Reis Bilirubin [Mass/Vol] 0.4 mg/dL Normal 0.2-1.0 [facility] Comment on above: Performed By: #### B INTERNAL CONTROLS SPECIALIST, CMP ####[facility] Vhzcxufmyi[address] [place], [place] [address]Dr. Swathi Reis Calcium [Mass/Vol] 9.5 mg/dL Normal 8.5-10.1 [facility] Comment on above: Performed By: #### B INTERNAL CONTROLS SPECIALIST, CMP ####[facility] Sjzabzwhmy[address] [place], [place] [address]Dr. Swathi Reis Chloride [Moles/Vol] 101 mmol/L Normal 98-107 [facility] Comment on above: Performed By: #### B INTERNAL CONTROLS SPECIALIST, CMP ####[facility] Vkpcdyrnvk60[address] [place], [place] [address]Dr. Swathi Reis CO2 [Moles/Vol] 30.7 mmol/L Normal 21.0-32.0 [facility] Comment on above: Performed By: #### B INTERNAL CONTROLS SPECIALIST, CMP ####[facility] Xeqhfxwora35[address] [place], [place] [address]Dr. Swathi Reis Creatinine [Mass/Vol] 1.53 mg/dL Critically high 0.55-1.02 [facility] Comment on above: Performed By: #### B INTERNAL CONTROLS SPECIALIST, CMP ####[facility] Fwtvcxnkgv796[address] [place], [place] [address]Dr. Swathi Reis EGFR-AF CROATIAN 40 mL/min/1.73m2 Critically low >=60 [facility] Comment on above: Performed By: #### B INTERNAL CONTROLS SPECIALIST, CMP ####[facility] Wjchdeacfd144[address] [place], [place] [address]Dr. Swathi Reis EGFR-NON AF CROATIAN 33 mL/min/1.73m2 Critically low >=60 [facility] Comment on above: Performed By: #### B INTERNAL CONTROLS SPECIALIST, CMP ####[facility] Qncympuspz248[address] [place], [place] [address]Dr. Swathi Reis Globulin (S) [Mass/Vol] 4.9 g/dL Normal [facility] Comment on above: Performed By: #### B INTERNAL CONTROLS SPECIALIST, CMP ####[facility] Yieujzdhcv249[address] [place], [place] [address]Dr. Swathi Reis Glucose [Mass/Vol] 139 mg/dL Critically high 74-106 [facility] Comment on above: Performed By: #### B INTERNAL CONTROLS SPECIALIST, CMP ####[facility] Jjmukzpwvl57[address] [place], [place] [address]Dr. Swathi Reis Potassium [Moles/Vol] 3.8 mmol/L Normal 3.5-5.1 [facility] Comment on above: Performed By: #### B INTERNAL CONTROLS SPECIALIST, CMP ####[facility] Amqcpwqkkk[address] [place], [place] [address]Dr. Swathi Reis Protein [Mass/Vol] 7.3 g/dL Normal 6.4-8.2 [facility] Comment on above: Performed By: #### B INTERNAL CONTROLS SPECIALIST, CMP ####[facility] Nztntjfzdz[address] [place], [place] [address]Dr. Swathi Reis Sodium [Moles/Vol] 139 mmol/L Normal 136-145 [facility] Comment on above: Performed By: #### B INTERNAL CONTROLS SPECIALIST, CMP ####[facility] Xahjvslwfg[address] [place], [place] [address]Dr. Swathi Chato Urea nitrogen [Mass/Vol] 26.0 mg/dL Critically high 7.0-18.0 [facility] Comment on above: Performed By: #### B INTERNAL CONTROLS SPECIALIST, CMP ####[facility] Lnustunbgo[address] [place], [place] [address]Dr. Inessatracy Reis Urea nitrogen/Creatinine [Mass ratio] 17.0 mg/mg Normal [facility] Comment on above: Performed By: #### B INTERNAL CONTROLS SPECIALIST, CMP ####[facility] Pqadcuspfm[address] [place], [place] [address]Dr. Swathi Chato BNPon 08-22-2022 Natriuretic peptide B (Bld) [Mass/Vol] 3439.0 pg/mL Critically high <=1,800.0 [facility] Comment on above: Performed By: #### C MP, BNP ####[facility] Cbwxwrxoao[address] [place], [place] [address]Dr. Swathi Chato CBC AUTO DIFFon 08-22-2022 BASO # 0.1 103/ul Normal 0.0-0.1 [facility] Comment on above: Performed By: #### C BC ####[facility] Aekrwqhfxf274[address] [place], [place] [address]Dr. Swathi Chato Basophils/100 WBC (Bld) 0.6 % Normal 0.2-2.0 [facility] Comment on above: Performed By: #### C BC ####[facility] Yfghmwuylz[address] [place], [place] [address]Dr. Swathi Reis EO # 0.3 103/ul Normal 0.0-0.7 [facility] Comment on above: Performed By: #### C BC ####[facility] [address] [place] [address]Dr. Swahti Reis Eosinophils/100 WBC (Bld) 2.1 % Normal 0.9-7.0 [facility] Comment on above: Performed By: #### C BC ####[facility] Hicmrkbsis[address] [place], [place] [address]Dr. Swathi Reis Erythrocyte distribution width (RBC) [Ratio] 13.8 % Normal 11.0-15.0 [facility] Comment on above: Performed By: #### C BC ####[facility] Dckebgvvfr[address] [place], [place] [address]Dr. Swathi Reis Hematocrit (Bld) [Volume fraction] 31.9 % Critically low 36.0-48.0 [facility] Comment on above: Performed By: #### C BC ####[facility] Arcdisbhng988[address] [place], [place] [address]Dr. Swathi Reis Hemoglobin (Bld) [Mass/Vol] 10.2 g/dL Critically low 12.0-16.0 [facility] Comment on above: Performed By: #### C BC ####[facility] Yktkwwisiz[address] [place], [place] [address]Dr. Swathi Reis IG # 0.10 10e3/ul Critically high 0.00-0.03 [facility] Comment on above: Performed By: #### C BC ####[facility] Wjvbajoeub[address] [place], [place] [address]Dr. Swathi Reis IG % 0.8 % Critically high 0.0-0.5 [facility] Comment on above: Performed By: #### C BC ####[facility] Ntjusgbfio382[address] [place], [place] [address]Dr. Swathi Reis LYMPH # 1.2 103/ul Normal 1.2-3.8 [facility] Comment on above: Performed By: #### C BC ####[facility] Xfhacynunr044[address] [place], [place] [address]Dr. Swathi Reis Lymphocytes/100 WBC (Bld) 9.6 % Critically low 20.5-60.0 [facility] Comment on above: Performed By: #### C BC ####[facility] [address]nacn[address] [place] [address]DrOtto Reis MANUAL DIFF REQ NO Normal [facility] Comment on above: Performed By: #### C BC ####[facility] Bsqyavljbf[address] [place] [address]Dr. Swathi Reis MCH (RBC) [Entitic mass] 28.7 pg Normal 26.7-34.0 [facility] Comment on above: Performed By: #### C BC ####[facility] Ljcqticqsq970[address] [place], [place] [address]Dr. Swathi Reis MCHC (RBC) [Mass/Vol] 32.0 g/dL Normal 29.9-35.2 [facility] Comment on above: Performed By: #### C BC ####[facility] Klaauqsyto760[address] [place], [place] [address]DrOtto Reis MCV (RBC) [Entitic vol] 89.9 fL Normal 81.0-99.0 [facility] Comment on above: Performed By: #### C BC ####[facility] Ilmvmypkfn189[address] [place], [place] [address]Dr. Swathi Reis MONO # 1.0 103/ul Critically high 0.3-0.8 [facility] Comment on above: Performed By: #### C BC ####[facility] Fjndbqfydr144[address] [place], [place] [address]DrOtto Reis Monocytes/100 WBC (Bld) 8.5 % Normal 1.7-12.0 [facility] Comment on above: Performed By: #### C BC ####[facility] Riyktwkise[address] [place], [place] [address]DrOtto Reis NEUT # 9.6 103/ul Critically high 1.4-6.5 [facility] Comment on above: Performed By: #### C BC ####[facility] Vwawluaojw270[address] [place], [place] [address]Dr. Swathi Reis Neutrophils/100 WBC (Bld) 78.4 % Critically high 43.0-75.0 [facility] Comment on above: Performed By: #### C BC ####[facility] Amqoxnihuo[address] [place] [address]Dr. Swathi Reis Platelet mean volume (Bld) [Entitic vol] 10.4 fL Normal 9.5-13.5 [facility] Comment on above: Performed By: #### C BC ####[facility] Dwlikggtfj15[address] [place] [address]Dr. Swathi Reis PLT 338 103/ul Normal 150-450 [facility] Comment on above: Performed By: #### C BC ####[facility] Xydatgjkiq96[address] [place] [address]Dr. Swathi Reis RBC 3.55 106/ul Critically low 4.20-5.40 [facility] Comment on above: Performed By: #### C BC ####[facility] Jviwhayyel48[address] [place], [place] [address]Dr. Swathi Reis WBC 12.2 103/ul Critically high 4.0-11.0 [facility] Comment on above: Performed By: #### C BC ####[facility] Timhguuwto334[address] [place], [place] [address]Dr. Swathi Reis DIGOXINon 08-22-2021 DIG 1.5 ng/mL Normal 0.9-2.0 [facility] Comment on above: Performed By: #### D IG ####[facility] Krrjrhfdvt189[address] [place], [place] [address]Dr. Swathi Reis POINT OF CARE GLUCOSEon 07-26-2021 Glucose [Mass/Vol] 222 mg/dL Critically high 74-106 [facility] Comment on above: Performed By: #### P OCGLUC ####[facility] Ttohghnsvz615[address] [place], [place] [address]Dr. Swathi Reis Glucose [Mass/Vol] 133 mg/dL Critically high 74-106 [facility] Comment on above: Performed By: #### P OCGLUC ####[facility] Sub[address]egcn[address] [place] [address]Dr. Swathi Reis Glucose [Mass/Vol] 299 mg/dL Critically high 74-106 [facility] Comment on above: Performed By: #### P OCGLUC ####[facility] Bbkjurttql217[address] [place], [place] [address]Dr. Swathi Reis Glucose [Mass/Vol] 151 mg/dL Critically high 74-106 [facility] Comment on above: Performed By: #### P OCGLUC ####[facility] Cddrhbphwe3412[address] [place], [place] [address]Dr. Swathi Reis PROF 14(COMP METB)on 022 Albumin [Mass/Vol] 2.4 g/dL Critically low 3.4-5.0 [facility] Comment on above: Performed By: #### C MP, BNP ####[facility] Orjgxoddep417[address] [place], [place] [address]Dr. Swathi Reis Albumin/Globulin [Mass ratio] 0.6 {ratio} Normal [facility] Comment on above: Performed By: #### C MP, BNP ####[facility] Arqgwasifn136[address] [place], [place] [address]Dr. Swathi Reis ALP [Catalytic activity/Vol] 98 U/L Normal 46-116 [facility] Comment on above: Performed By: #### C MP, BNP ####[facility] Dvqimcwqfu55220[address] [place], [place] [address]Dr. Swathi Reis ALT [Catalytic activity/Vol] 13 U/L Critically low 14-59 [facility] Comment on above: Performed By: #### C MP, BNP ####[facility] Ammqjounmq264[address] [place], [place] [address]Dr. Swathi Reis Anion gap [Moles/Vol] 12.4 mmol/L Normal [facility] Comment on above: Performed By: #### C MP, BNP ####[facility] Lhiximezgf28[address] [place], [place] [address]Dr. Swathi Reis AST [Catalytic activity/Vol] 23 U/L Normal 15-37 [facility] Comment on above: Performed By: #### C MP, BNP ####[facility] [address]ubpzwet[address] [place] [address]Dr. Swathi Reis Bilirubin [Mass/Vol] 0.6 mg/dL Normal 0.2-1.0 [facility] Comment on above: Performed By: #### C MP, BNP ####[facility] Phdcnvqjfr187[address] [place], [place] [address]Dr. Swathi Reis Calcium [Mass/Vol] 8.9 mg/dL Normal 8.5-10.1 [facility] Comment on above: Performed By: #### C MP, BNP ####[facility] Dcyfcyyxop022[address] [place], [place] [address]Dr. Swathi Reis Chloride [Moles/Vol] 100 mmol/L Normal 98-107 [facility] Comment on above: Performed By: #### C MP, BNP ####[facility] Ubbrrgwleo687[address] [place], [place] [address]Dr. Swathi Reis CO2 [Moles/Vol] 30.6 mmol/L Normal 21.0-32.0 [facility] Comment on above: Performed By: #### C MP, BNP ####[facility] Vneaqxeixj985[address] [place], [place] [address]Dr. Swathi Reis Creatinine [Mass/Vol] 1.54 mg/dL Critically high 0.55-1.02 [facility] Comment on above: Performed By: #### C MP, BNP ####[facility] Lmwazfomxe[address] [place], [place] [address]Dr. Swathi Reis EGFR-AF CROATIAN 40 mL/min/1.73m2 Critically low >=60 [facility] Comment on above: Performed By: #### C MP, BNP ####[facility] Euhtftmqgv24[address] [place], [place] [address]Dr. Swathi Reis EGFR-NON AF CROATIAN 33 mL/min/1.73m2 Critically low >=60 [facility] Comment on above: Performed By: #### C MP, BNP ####[facility] Himjqkbjlr668[address] [place], [place] [address]Dr. wSathi Reis Globulin (S) [Mass/Vol] 3.9 g/dL Normal [facility] Comment on above: Performed By: #### C MP, BNP ####[facility] F[address]jj[address]wc[address] [place] [address]Dr. Swathi Reis Glucose [Mass/Vol] 143 mg/dL Critically high 74-106 [facility] Comment on above: Performed By: #### C MP, BNP ####[facility] Kemb[address]owpsd[address] [place] [address]Dr. Swathi Reis Potassium [Moles/Vol] 4.0 mmol/L Normal 3.5-5.1 [facility] Comment on above: Performed By: #### C MP, BNP ####[facility] Oriamnnwsq[address] [place] [address]Dr. Swathi Reis Protein [Mass/Vol] 6.3 g/dL Critically low 6.4-8.2 [facility] Comment on above: Performed By: #### C MP, BNP ####[facility] Xlftbqmkoy[address] [place], [place] [address]Dr. Swathi Reis Sodium [Moles/Vol] 139 mmol/L Normal 136-145 [facility] Comment on above: Performed By: #### C MP, BNP ####[facility] Kqhpusdpov869[address] [place], [place] [address]Dr. Swathi Reis Urea nitrogen [Mass/Vol] 27.0 mg/dL Critically high 7.0-18.0 [facility] Comment on above: Performed By: #### C MP, BNP ####[facility] Mtlmfktcer635[address] [place], [place] [address]Dr. Swathi Reis Urea nitrogen/Creatinine [Mass ratio] 17.5 mg/mg Normal [facility] Comment on above: Performed By: #### C MP, BNP ####[facility] Prexfuamqz[address] [place] [address]Dr. Swathi Reis VANCOMYCIN TROUGHon 30-20 22 VANCOMYCIN TROUGH 13.2 ug/ml Normal 5.0-20.0 [facility] Comment on above: Performed By: #### V ANCT ####[facility] Mtyxfyinvq194[address] [place], [place] [address]Dr. Swathi Reis XR CHEST 2 Von 11-30-2022 XR CHEST 2 V Normal [facility] BNPon 08-21-2022 Natriuretic peptide B (Bld) [Mass/Vol] 3683.0 pg/mL Critically high <=1,800.0 [facility] Comment on above: Performed By: #### C MP, BNP ####[facility] Omwnwaenbp248[address] [place], [place] [address]DrOtto Reis CBC AUTO DIFFon 08-21-2022 BASO # 0.1 103/ul Normal 0.0-0.1 [facility] Comment on above: Performed By: #### C BC ####[facility] Ckxwrfoalk3414[address] [place], [place] [address]DrOtto Reis Basophils/100 WBC (Bld) 0.4 % Normal 0.2-2.0 [facility] Comment on above: Performed By: #### C BC ####[facility] Ezovyvishk[address] [place], [place] [address]DrOtto Reis EO # 0.2 103/ul Normal 0.0-0.7 [facility] Comment on above: Performed By: #### C BC ####[facility] Nwxrxtscei100[address] [place], [place] [address]Dr. Swathi Reis Eosinophils/100 WBC (Bld) 1.8 % Normal 0.9-7.0 [facility] Comment on above: Performed By: #### C BC ####[facility] Hmfpcydecy[address] [place], [place] [address]DrOtto Reis Erythrocyte distribution width (RBC) [Ratio] 14.4 % Normal 11.0-15.0 [facility] Comment on above: Performed By: #### C BC ####[facility] Zzvubgemen[address] [place], [place] [address]DrOtto Reis Hematocrit (Bld) [Volume fraction] 33.5 % Critically low 36.0-48.0 [facility] Comment on above: Performed By: #### C BC ####[facility] Migyuermju365[address] [place], [place] [address]DrOtto Reis Hemoglobin (Bld) [Mass/Vol] 10.8 g/dL Critically low 12.0-16.0 [facility] Comment on above: Performed By: #### C BC ####[facility] Mnxabbyban[address] [place] [address]DrOtto Reis IG # 0.06 10e3/ul Critically high 0.00-0.03 [facility] Comment on above: Performed By: #### C BC ####[facility] Otdrlmzdsp20[address] [place] [address]DrOtto Reis IG % 0.5 % Normal 0.0-0.5 [facility] Comment on above: Performed By: #### C BC ####[facility] Oxfgcsmwct0[address] [place] [address]DrOtto Reis LYMPH # 0.9 103/ul Critically low 1.2-3.8 [facility] Comment on above: Performed By: #### C BC ####[facility] Cvzhskmaan9[address] [place] [address]DrOtto Reis Lymphocytes/100 WBC (Bld) 7.2 % Critically low 20.5-60.0 [facility] Comment on above: Performed By: #### C BC ####[facility] Hvazaeddkg6135 [place] [address]DrOtto Reis MANUAL DIFF REQ NO Normal [facility] Comment on above: Performed By: #### C BC ####[facility] Gwayjltblu0205 [place] [address]DrOtto Reis MCH (RBC) [Entitic mass] 29.0 pg Normal 26.7-34.0 [facility] Comment on above: Performed By: #### C BC ####[facility] Xrhnxksklf6584 [place] [address]DrOtto Reis MCHC (RBC) [Mass/Vol] 32.2 g/dL Normal 29.9-35.2 [facility] Comment on above: Performed By: #### C BC ####[facility] Cwdejwwfwd9864 [place] [address]DrOtto Reis MCV (RBC) [Entitic vol] 90.1 fL Normal 81.0-99.0 [facility] Comment on above: Performed By: #### C BC ####[facility] Hkvtwupsir1698 [place] [address]DrOtto Swathi Reis MONO # 0.8 103/ul Normal 0.3-0.8 [facility] Comment on above: Performed By: #### C BC ####[facility] Pzqbcksuzu7648 [place] [address]DrOtto Reis Monocytes/100 WBC (Bld) 6.3 % Normal 1.7-12.0 [facility] Comment on above: Performed By: #### C BC ####[facility] Juxyvrlpzu[address] [place], [place] [address]Dr. Inessatracy Reis NEUT # 10.7 103/ul Critically high 1.4-6.5 [facility] Comment on above: Performed By: #### C BC ####[facility] Jpnkggkdsu215[address] [place], [place] [address]Dr. Swathi Reis Neutrophils/100 WBC (Bld) 83.8 % Critically high 43.0-75.0 [facility] Comment on above: Performed By: #### C BC ####[facility] Aqcnwdgqsu[address] [place], [place] [address]DrOtto Inessatracy Reis Platelet mean volume (Bld) [Entitic vol] 10.7 fL Normal 9.5-13.5 [facility] Comment on above: Performed By: #### C BC ####[facility] Rolkpqvynr[address] [place] [address]Dr. Swathi Reis PLT 324 103/ul Normal 150-450 [facility] Comment on above: Performed By: #### C BC ####[facility] Cbmtksbbpa57[address] [place] [id number] Reis RBC 3.72 106/ul Critically low 4.20-5.40 [facility] Comment on above: Performed By: #### C BC ####[facility] Dsafpzimby4[address] [place] [id number] Reis WBC 12.8 103/ul Critically high 4.0-11.0 [facility] Comment on above: Performed By: #### C BC ####[facility] Oqcljypzbt8[address] [place] [address]Dr. Swathi Reis DIGOXINon 08-21-2022 DIG 1.3 ng/mL Normal 0.9-2.0 [facility] Comment on above: Performed By: #### D IG ####[facility] Htoyvosmpc24[address] [place] [address]Dr. Swathi Reis POINT OF CARE GLUCOSEon 07-25 Glucose [Mass/Vol] 129 mg/dL Critically high 74-106 [facility] Comment on above: Performed By: #### P OCGLUC ####[facility] Tldskyjagx[address] [place], [place] [address]Dr. Swathi Reis Glucose [Mass/Vol] 145 mg/dL Critically high 74-106 [facility] Comment on above: Performed By: #### P OCGLUC ####[facility] Jvamenecvf80[address] [place], [place] [address]Dr. Swathi Reis Glucose [Mass/Vol] 366 mg/dL Critically high 74-106 [facility] Comment on above: Performed By: #### P OCGLUC ####[facility] Ysvuwghazn179[address] [place], [place] [address]Dr. Swathi Reis Glucose [Mass/Vol] 149 mg/dL Critically high 74-106 [facility] Comment on above: Performed By: #### P OCGLUC ####[facility] Avwzpzajsj[address] [place], [place] [address]Dr. Swathi Reis PROF 14(COMP METB)on 022 Albumin [Mass/Vol] 2.4 g/dL Critically low 3.4-5.0 [facility] Comment on above: Performed By: #### C MP, BNP ####[facility] Fxotysjoqo0178 [place] [address]Dr. Swathi Reis Albumin/Globulin [Mass ratio] 0.5 {ratio} Normal [facility] Comment on above: Performed By: #### C MP, BNP ####[facility] Zavjzlnces10[address] [place] [address]Dr. Swathi Reis ALP [Catalytic activity/Vol] 93 U/L Normal 46-116 [facility] Comment on above: Performed By: #### C MP, BNP ####[facility] Ebtzbyomwj59[address] [place], [place] [address]Dr. Swathi Reis ALT [Catalytic activity/Vol] 11 U/L Critically low 14-59 [facility] Comment on above: Performed By: #### C MP, BNP ####[facility] Lqkkfbmlsh9[address] [place], [place] [address]Dr. Swathi Reis Anion gap [Moles/Vol] 9.8 mmol/L Normal [facility] Comment on above: Performed By: #### C MP, BNP ####[facility] Ngxsfnxeva[address] [place], [place] [address]Dr. Swathi Reis AST [Catalytic activity/Vol] 14 U/L Critically low 15-37 [facility] Comment on above: Performed By: #### C MP, BNP ####[facility] Pchoauynnk[address] [place], [place] [address]Dr. Swathi Reis Bilirubin [Mass/Vol] 0.6 mg/dL Normal 0.2-1.0 [facility] Comment on above: Performed By: #### C MP, BNP ####[facility] Pharyshhqq354[address] [place], [place] [address]Dr. Swathi Reis Calcium [Mass/Vol] 9.4 mg/dL Normal 8.5-10.1 [facility] Comment on above: Performed By: #### C MP, BNP ####[facility] Fjslgeckjo268[address] [place], [place] [address]Dr. Swathi Reis Chloride [Moles/Vol] 102 mmol/L Normal 98-107 [facility] Comment on above: Performed By: #### C MP, BNP ####[facility] Wyptfpevnh28[address] [place], [place] [address]Dr. Swathi Reis CO2 [Moles/Vol] 33.4 mmol/L Critically high 21.0-32.0 [facility] Comment on above: Performed By: #### C MP, BNP ####[facility] Ykoszxwldo1786 [place] [address]Dr. Swathi Reis Creatinine [Mass/Vol] 1.79 mg/dL Critically high 0.55-1.02 [facility] Comment on above: Performed By: #### C MP, BNP ####[facility] Bxpdyzsvty511[address] [place], [place] [address]Dr. Swathi Reis EGFR-AF CROATIAN 33 mL/min/1.73m2 Critically low >=60 [facility] Comment on above: Performed By: #### C MP, BNP ####[facility] Hdckqrifug145[address] [place], [place] [address]Dr. Swathi Reis EGFR-NON AF CROATIAN 27 mL/min/1.73m2 Critically low >=60 [facility] Comment on above: Performed By: #### C MP, BNP ####[facility] Rccyjhzfwi15[address] [place], [place] [address]Dr. Swathi Reis Globulin (S) [Mass/Vol] 4.9 g/dL Normal [facility] Comment on above: Performed By: #### C MP, BNP ####[facility] Svyiyctylc[address] [place], [place] [address]Dr. Swathi Reis Glucose [Mass/Vol] 121 mg/dL Critically high 74-106 [facility] Comment on above: Performed By: #### C MP, BNP ####[facility] Pvdzyvhwgr[address] [place], [place] [address]Dr. Swathi Reis Potassium [Moles/Vol] 3.2 mmol/L Critically low 3.5-5.1 [facility] Comment on above: Performed By: #### C MP, BNP ####[facility] Xuofrsnvwe[address] [place], [place] [address]Dr. Swathi Reis Protein [Mass/Vol] 7.3 g/dL Normal 6.4-8.2 [facility] Comment on above: Performed By: #### C MP, BNP ####[facility] Vbgmgmvfan[address] [place], [place] [address]Dr. Swathi Reis Sodium [Moles/Vol] 142 mmol/L Normal 136-145 [facility] Comment on above: Performed By: #### C MP, BNP ####[facility] Iprcrbyfbu[address] [place], [place] [address]Dr. Swathi Chato Urea nitrogen [Mass/Vol] 32.0 mg/dL Critically high 7.0-18.0 [facility] Comment on above: Performed By: #### C MP, BNP ####[facility] Afklnpvgvr418[address] [place], [place] [address]Dr. Swathi Reis Urea nitrogen/Creatinine [Mass ratio] 17.9 mg/mg Normal [facility] Comment on above: Performed By: #### C MP, BNP ####[facility] Gkacabexpd[address] [place], [place] [address]Dr. Swathi Chato BNPon 08-20-2022 Natriuretic peptide B (Bld) [Mass/Vol] 7302.0 pg/mL Critically high <=1,800.0 [facility] Comment on above: Performed By: #### C MP, BNP ####[facility] Bqwvwlpyva[address] [place], [place] [address]Dr. Inessatracy Chato C. DIFF PCRon 08-20-2022 C. DIFFICILE PCR Positive Critically abnormal NEGATIVE [facility] Comment on above: Performed By: #### C DIFPOC ####[facility] Yutzuiyzrc[address] [place], [place] [address]Dr. Swathi Chato CBC AUTO DIFFon 08-20-2022 BASO # 0.1 103/ul Normal 0.0-0.1 [facility] Comment on above: Performed By: #### C BC ####[facility] Cytzcldxyn[address] [place], [place] [address]Dr. Swathi Reis Basophils/100 WBC (Bld) 0.5 % Normal 0.2-2.0 [facility] Comment on above: Performed By: #### C BC ####[facility] Fxuxrrnubd2[address] [place], [place] [address]Dr. Swathi Reis EO # 0.1 103/ul Normal 0.0-0.7 [facility] Comment on above: Performed By: #### C BC ####[facility] Uzitwadllb[address] [place], [place] [address]Dr. Swathi Reis Eosinophils/100 WBC (Bld) 0.3 % Critically low 0.9-7.0 The [facility] Comment on above: Performed By: #### C BC ####[facility] T[address]kf[address] [place] [address]Dr. Swathi Reis Erythrocyte distribution width (RBC) [Ratio] 14.5 % Normal 11.0-15.0 The [facility] Comment on above: Performed By: #### C BC ####[facility] Vnjoykvcsp[address] [place] [address]Dr. Swathi Reis Hematocrit (Bld) [Volume fraction] 31.4 % Critically low 36.0-48.0 The [facility] Comment on above: Performed By: #### C BC ####[facility] Opscsthpwd[address] [place] [address]Dr. Swathi Reis Hemoglobin (Bld) [Mass/Vol] 10.3 g/dL Critically low 12.0-16.0 [facility] Comment on above: Performed By: #### C BC ####[facility] Xymncayrif6286 [place] [address]Dr. Swathi Reis IG # 0.12 10e3/ul Critically high 0.00-0.03 [facility] Comment on above: Performed By: #### C BC ####[facility] Nuumbegblg[address] [place] [address]Dr. Swathi Reis IG % 0.7 % Critically high 0.0-0.5 [facility] Comment on above: Performed By: #### C BC ####[facility] Fmqmxspzll74[address] [place] [address]Dr. Swathi Reis LYMPH # 0.9 103/ul Critically low 1.2-3.8 [facility] Comment on above: Performed By: #### C BC ####[facility] Yunnkpjfuz27[address] [place] [address]Dr. Swathi Reis Lymphocytes/100 WBC (Bld) 5.6 % Critically low 20.5-60.0 The [facility] Comment on above: Performed By: #### C BC ####[facility] Gmdaqbmrly[address] [place] [id number]. Swathi Reis MANUAL DIFF REQ NO Normal [facility] Comment on above: Performed By: #### C BC ####[facility] Prajbgxnuf8[address] [place] [phone]. Swathi Reis MCH (RBC) [Entitic mass] 29.3 pg Normal 26.7-34.0 [facility] Comment on above: Performed By: #### C BC ####[facility] Vqauksxxci0458 [place] [address]Dr. Swathi Reis MCHC (RBC) [Mass/Vol] 32.8 g/dL Normal 29.9-35.2 [facility] Comment on above: Performed By: #### C BC ####[facility] Rvamjyttoe54[address] [place] [address]Dr. Swathi Chato MCV (RBC) [Entitic vol] 89.5 fL Normal 81.0-99.0 [facility] Comment on above: Performed By: #### C BC ####[facility] Ujggnzpxlu4832 [place] [phone]. Swathi Chato MONO # 0.9 103/ul Critically high 0.3-0.8 [facility] Comment on above: Performed By: #### C BC ####[facility] Kcpnfdfxhh[address] [place] [address]Dr. Inessatracy Reis Monocytes/100 WBC (Bld) 5.6 % Normal 1.7-12.0 The [facility] Comment on above: Performed By: #### C BC ####[facility] Vxhtzdltwv1817 [place] [phone]. Swathi Reis NEUT # 14.1 103/ul Critically high 1.4-6.5 [facility] Comment on above: Performed By: #### C BC ####[facility] Broqaxmecz92[address] [place] [phone]. Inessatracy Reis Neutrophils/100 WBC (Bld) 87.3 % Critically high 43.0-75.0 The [facility] Comment on above: Performed By: #### C BC ####[facility] Veosnftgem7293 [place] [phone]. Swathi Reis Platelet mean volume (Bld) [Entitic vol] 10.8 fL Normal 9.5-13.5 [facility] Comment on above: Performed By: #### C BC ####[facility] Orldwkylxf3891 [place] [phone]. Swathi Reis PLT 303 103/ul Normal 150-450 [facility] Comment on above: Performed By: #### C BC ####[facility] Vcmwgbsyti4395 [place] [phone]. Swathi Reis RBC 3.51 106/ul Critically low 4.20-5.40 [facility] Comment on above: Performed By: #### C BC ####[facility] Xdhjnnsscp3020 [place] [phone]. Swathi Reis WBC 16.2 103/ul Critically high 4.0-11.0 [facility] Comment on above: Performed By: #### C BC ####[facility] Vugngfuhus4778 [place] [phone]. Swathi Resi DIGOXINon 08-20-2022 DIG 1.2 ng/mL Normal 0.9-2.0 [facility] Comment on above: Performed By: #### D IG ####[facility] Ytfxerwnhr7505 [place] [phone]. Swathi Reis POINT OF CARE GLUCOSEon 07-25 Glucose [Mass/Vol] 180 mg/dL Critically high 74-106 [facility] Comment on above: Performed By: #### P OCGLUC ####[facility] Svrcmutrwg0612 [place] [phone]. Swathi Reis Glucose [Mass/Vol] 115 mg/dL Critically high 74-106 [facility] Comment on above: Performed By: #### P OCGLUC ####[facility] Dcmfpibglp5720 [place] [phone]. Swathi Reis Glucose [Mass/Vol] 235 mg/dL Critically high -106 [facility] Comment on above: Performed By: #### P OCGLUC ####[facility] Rpaqtpmrjh[address] [place] [address]Dr. wSathi Reis PROF 14(COMP METB)on 022 Albumin [Mass/Vol] 2.5 g/dL Critically low 3.4-5.0 Th e [facility] Comment on above: Performed By: #### C MP, BNP ####[facility] Cnfkxwljkh9737 [place] [address]Dr. Swathi Reis Albumin/Globulin [Mass ratio] 0.6 {ratio} Normal [facility] Comment on above: Performed By: #### C MP, BNP ####[facility] Tkgodcrfbl4959 [place] [address]Dr. Swathi Reis ALP [Catalytic activity/Vol] 69 U/L Normal 46-116 [facility] Comment on above: Performed By: #### C MP, BNP ####[facility] Yfhoooegkz4332 [place] [address]Dr. Swathi Reis ALT [Catalytic activity/Vol] 11 U/L Critically low 14-59 [facility] Comment on above: Performed By: #### C MP, BNP ####[facility] Vvmnbsustb9761 [place] [address]Dr. Swathi Reis Anion gap [Moles/Vol] 11.7 mmol/L Normal [facility] Comment on above: Performed By: #### C MP, BNP ####[facility] Puxtvbupeb3599 [place] [address]Dr. Swathi Reis AST [Catalytic activity/Vol] 18 U/L Normal 15-37 [facility] Comment on above: Performed By: #### C MP, BNP ####[facility] Pcamaenpbm3642 [place] [address]Dr. Swathi Reis Bilirubin [Mass/Vol] 1.0 mg/dL Normal 0.2-1.0 [facility] Comment on above: Performed By: #### C MP, BNP ####[facility] Cssxfpzhci8958 [place] [address]Dr. Swathi Reis Calcium [Mass/Vol] 9.2 mg/dL Normal 8.5-10.1 [facility] Comment on above: Performed By: #### C MP, BNP ####[facility] Tsqfeieawg6500 [place] [address]Dr. Swathi Reis Chloride [Moles/Vol] 104 mmol/L Normal 98-107 [facility] Comment on above: Performed By: #### C MP, BNP ####[facility] Omumamcwhm[address] [place], [place] [address]Dr. Swathi Reis CO2 [Moles/Vol] 32.7 mmol/L Critically high 21.0-32.0 [facility] Comment on above: Performed By: #### C MP, BNP ####[facility] Eihggxilqz[address] [place], [place] [address]Dr. Swathi Reis Creatinine [Mass/Vol] 1.86 mg/dL Critically high 0.55-1.02 [facility] Comment on above: Performed By: #### C MP, BNP ####[facility] Ioicipmvas[address] [place], [place] [address]Dr. Inessatracy Chato EGFR-AF CROATIAN 32 mL/min/1.73m2 Critically low >=60 [facility] Comment on above: Performed By: #### C MP, BNP ####[facility] Jmndakzpdc[address] [place], [place] [address]Dr. Swathi Reis EGFR-NON AF CROATIAN 26 mL/min/1.73m2 Critically low >=60 [facility] Comment on above: Performed By: #### C MP, BNP ####[facility] Mgutlonpfr[address] [place], [place] [address]Dr. Swathi Reis Globulin (S) [Mass/Vol] 4.2 g/dL Normal [facility] Comment on above: Performed By: #### C MP, BNP ####[facility] Anpqifyevt22[address] [place], [place] [address]Dr. Swathi Reis Glucose [Mass/Vol] 135 mg/dL Critically high 74-106 [facility] Comment on above: Performed By: #### C MP, BNP ####[facility] Atptgajnnm324[address] [place], [place] [address]Dr. Swathi Reis Potassium [Moles/Vol] 3.4 mmol/L Critically low 3.5-5.1 The [facility] Comment on above: Performed By: #### C MP, BNP ####[facility] Ehnbtevckv7605 [place] [address]Dr. Swathi Reis Protein [Mass/Vol] 6.7 g/dL Normal 6.4-8.2 The [facility] Comment on above: Performed By: #### C MP, BNP ####[facility] Kjhbzreufn[address] [place], [place] [address]Dr. Inessatracy Reis Sodium [Moles/Vol] 145 mmol/L Normal 136-145 The [facility] Comment on above: Performed By: #### C MP, BNP ####[facility] Mtooldwjli[address] [place], [place] [address]Dr. Swathi Reis Urea nitrogen [Mass/Vol] 29.0 mg/dL Critically high 7.0-18.0 The [facility] Comment on above: Performed By: #### C MP, BNP ####[facility] Gaxesuuhwr[address] [place], [place] [address]Dr. Swathi Reis Urea nitrogen/Creatinine [Mass ratio] 15.6 mg/mg Normal [facility] Comment on above: Performed By: #### C MP, BNP ####[facility] Vdphelvvyj[address] [place], [place] [address]Dr. Inessatracy Reis XR CHEST 1 Von 08-20-2022 XR CHEST 1 V Normal [facility] BLOOD GASES BTYon 08-19-2022 02 MODE BIPAP Normal [facility] Comment on above: Performed By: #### A BG ####[facility] Hvdoiqycxh[address] [place], [place] [address]Dr. Swathi Reis ALLENS TEST Positive Normal The [facility] Comment on above: Performed By: #### A BG ####[facility] Vzpvsoyoar[address] [place], [place] [address]Dr. Swathi Reis Base excess Calc (Bld) [Moles/Vol] 0.8 mmol/L Normal -2.0-2.0 The [facility] Comment on above: Performed By: #### A BG ####[facility] Tcrluylggv3343 [place] [address]Dr. Swathi Reis BIPAP PRESSURE 12/6 Normal The [facility] Comment on above: Performed By: #### A BG ####[facility] Jinqtgpcgh8577 [place] [address]Dr. Swathi Reis CPAP Normal [facility] Comment on above: Performed By: #### A BG ####[facility] Fynsoohhqr2677 [place] [address]Dr. Swathi Reis FIO2 90.00 % Normal [facility] Comment on above: Performed By: #### A BG ####[facility] Caldzuympq26[address] [place], [place] [address]Dr. Swathi Reis HCO3 (Bld) [Moles/Vol] 25.9 mmol/L Normal 22.0-26.0 The [facility] Comment on above: Performed By: #### A BG ####[facility] Dtwldidshn[address] [place], [place] [address]Dr. Swathi Chato LPM Normal [facility] Comment on above: Performed By: #### A BG ####[facility] Cyzrmzkopo[address] [place], [place] [address]Dr. Swathi Reis MINUTE VOLUME Normal [facility] Comment on above: Performed By: #### A BG ####[facility] Ybckqijswh[address] [place], [place] [address]Dr. Swathi Reis Oxygen (Bld) [Partial pressure] 95.0 mm[Hg] Normal 80.0-100.0 The [facility] Comment on above: Performed By: #### A BG ####[facility] Nsqogkqbdn16[address] [place], [place] [address]Dr. Swathi Reis Oxygen saturation in Blood 97.7 % Normal 95.0-100.0 The [facility] Comment on above: Performed By: #### A BG ####[facility] Ngkaidznun67[address] [place], [place] [address]Dr. Swathi Reis PCO2 44.2 mmHg Normal 35.0-45.0 The [facility] Comment on above: Performed By: #### A BG ####[facility] Acjdowpqrz5598 [place] [address]Dr. Swathi Reis PEEP [facility] Comment on above: Performed By: #### A BG ####[facility] Tjztddzgvh7672 [place] [address]Dr. Swathi Reis pH (Bld) 7.377 [pH] Normal 7.350-7.450 [facility] Comment on above: Performed By: #### A BG ####[facility] Nbjlxgbwka4920 [place] [address]Dr. Swathi Reis PIP [facility] Comment on above: Performed By: #### A BG ####[facility] Cplyxvmrhq[address] [place], [place] [address]Dr. Swathi Reis PS [facility] Comment on above: Performed By: #### A BG ####[facility] Kuibvdoxgz[address] [place], [place] [address]Dr. Swathi Reis PUNCTURE SITE RR [facility] Comment on above: Performed By: #### A BG ####[facility] Manopxiaqz[address] [place], [place] [address]Dr. Swathi Reis RATE [facility] Comment on above: Performed By: #### A BG ####[facility] Gijovabngp[address] [place], [place] [address]Dr. Swathi Reis VENT MODE [facility] Comment on above: Performed By: #### A BG ####[facility] Wkosqzynfu[address] [place], [place] [address]Dr. Swathi Reis [place] [facility] Comment on above: Performed By: #### A BG ####[facility] Hpaxuhsktv[address] [place], [place] [address]Dr. Swathi Reis BNPon 08-19-2022 Natriuretic peptide B (Bld) [Mass/Vol] 2862.0 pg/mL Critically high <=1,800.0 [facility] Comment on above: Performed By: #### L IPA, BNP ####[facility] Sihcpbpyhp[address] [place], [place] [address]Dr. Swathi Reis CARDIAC TRINA 3-6on 2 CK [Catalytic activity/Vol] 25 U/L Critically low 26-192 [facility] Comment on above: Performed By: #### C MREP ####[facility] Fiksgszwda4731 [place] [address]Dr. Swathi Reis CK.MB [Mass/Vol] 0.57 ng/mL Normal <=3.60 The [facility] Comment on above: Performed By: #### C MREP ####[facility] Szoksdcqci1505 [place] [address]Dr. Swathi Reis HSTROP 16.6 pg/mL Normal 4.0-51.3 The [facility] Comment on above: Result Comment: CUT- OFF POINTS HAVE BEEN ESTABLISHED BASED ON THE FOURTH UNIVERSAL DEFINITIONS OF MYOCARDIALINFARCTION. THE UPPER REFERENCE LIMIT (URL) OF TROPONIN, DEFINED THE 99TH PERCENTILE OFcTnI DISTRIBUTION IN A REFERENCE POPULATION, HAS BEEN CONFIRMED THE DECISION THRESHOLDFOR IA DIAGNOSIS. Performed By: #### C MREP ####[facility] Zuvuimarox4868 [place] [address]Dr. Swathi Reis CK [Catalytic activity/Vol] 26 U/L Normal 26-192 [facility] Comment on above: Performed By: #### C MREP ####[facility] Synmunerfv7479 [place] [address]Dr. Swathi Reis CK.MB [Mass/Vol] 0.59 ng/mL Normal <=3.60 The [facility] Comment on above: Performed By: #### C MREP ####[facility] Chqvibghbj2189 [place] [address]Dr. Swathi Reis HSTROP 16.3 pg/mL Normal 4.0-51.3 The [facility] Comment on above: Result Comment: CUT- OFF POINTS HAVE BEEN ESTABLISHED BASED ON THE FOURTH UNIVERSAL DEFINITIONS OF MYOCARDIALINFARCTION. THE UPPER REFERENCE LIMIT (URL) OF TROPONIN, DEFINED THE 99TH PERCENTILE OFcTnI DISTRIBUTION IN A REFERENCE POPULATION, HAS BEEN CONFIRMED THE DECISION THRESHOLDFOR IA DIAGNOSIS. Performed By: #### C MREP ####[facility] Gqwjekswnv2460 [place] [address]Dr. Swathi Reis CBC AUTO DIFFon 08-19-2022 BASO # 0.1 103/ul Normal 0.0-0.1 The [facility] Comment on above: Performed By: #### C BC ####[facility] Nnkjldeddv[address] [place], [place] [address]Dr. Swathi Reis Basophils/100 WBC (Bld) 0.4 % Normal 0.2-2.0 [facility] Comment on above: Performed By: #### C BC ####[facility] Aoubkgbjhw[address] [place], [place] [address]Dr. Swathi Reis EO # 0.1 103/ul Normal 0.0-0.7 [facility] Comment on above: Performed By: #### C BC ####[facility] Ssecoygbtd[address] [place], [place] [address]Dr. Swathi Reis Eosinophils/100 WBC (Bld) 0.4 % Critically low 0.9-7.0 [facility] Comment on above: Performed By: #### C BC ####[facility] Nltfjkseaq[address] [place], [place] [address]Dr. Swathi Reis Erythrocyte distribution width (RBC) [Ratio] 14.2 % Normal 11.0-15.0 [facility] Comment on above: Performed By: #### C BC ####[facility] Xvjkzrulkn[address] [place], [place] [address]Dr. Swathi Reis Hematocrit (Bld) [Volume fraction] 34.4 % Critically low 36.0-48.0 [facility] Comment on above: Performed By: #### C BC ####[facility] Hobxngpkex[address] [place], [place] [address]Dr. Swathi Reis Hemoglobin (Bld) [Mass/Vol] 11.2 g/dL Critically low 12.0-16.0 [facility] Comment on above: Performed By: #### C BC ####[facility] Tggpzguxyx[address] [place], [place] [address]Dr. Swathi Reis IG # 0.08 10e3/ul Critically high 0.00-0.03 The [facility] Comment on above: Performed By: #### C BC ####[facility] Ajcgjdiflv5465 [place] [phone]. Swathi Reis IG % 0.4 % Normal 0.0-0.5 [facility] Comment on above: Performed By: #### C BC ####[facility] Drhirntddl3836 [place] [address]Dr. Swathi Reis LYMPH # 0.8 103/ul Critically low 1.2-3.8 The [facility] Comment on above: Performed By: #### C BC ####[facility] Xdlnltamzc9622 [place] [address]Dr. Swathi Chato Lymphocytes/100 WBC (Bld) 4.1 % Critically low 20.5-60.0 [facility] Comment on above: Performed By: #### C BC ####[facility] Kjmbdlnqrz3775 [place] [address]Dr. Inessatracy Reis MANUAL DIFF REQ NO Normal [facility] Comment on above: Performed By: #### C BC ####[facility] Hbktevkajp1012 [place] [address]Dr. Swathi Reis MCH (RBC) [Entitic mass] 29.1 pg Normal 26.7-34.0 [facility] Comment on above: Performed By: #### C BC ####[facility] Sjlpzjlxmu[address] [place], [place] [address]Dr. Swathi Reis MCHC (RBC) [Mass/Vol] 32.6 g/dL Normal 29.9-35.2 [facility] Comment on above: Performed By: #### C BC ####[facility] Ccqvnmshjc7137 [place] [address]Dr. Swathi Reis MCV (RBC) [Entitic vol] 89.4 fL Normal 81.0-99.0 [facility] Comment on above: Performed By: #### C BC ####[facility] S[address]glwgbw[address] [place], [place] [address]Dr. Swathi Reis MONO # 1.1 103/ul Critically high 0.3-0.8 [facility] Comment on above: Performed By: #### C BC ####[facility] Mcqysddsea9205 [place] [phone]. Swathi Reis Monocytes/100 WBC (Bld) 5.8 % Normal 1.7-12.0 [facility] Comment on above: Performed By: #### C BC ####[facility] Dsffbcrlis6854 [place] [phone]. Swathi Reis NEUT # 16.4 103/ul Critically high 1.4-6.5 [facility] Comment on above: Performed By: #### C BC ####[facility] Yuxvmlvvbk5157 [place] [phone]. Swathi Reis Neutrophils/100 WBC (Bld) 88.9 % Critically high 43.0-75.0 [facility] Comment on above: Performed By: #### C BC ####[facility] Oujemhiawe5749 [place] [address]Dr. Swathi Reis Platelet mean volume (Bld) [Entitic vol] 10.6 fL Normal 9.5-13.5 [facility] Comment on above: Performed By: #### C BC ####[facility] Sdputurnob5576 [place] [phone]. Swathi Reis PLT 366 103/ul Normal 150-450 [facility] Comment on above: Performed By: #### C BC ####[facility] Thkgrnblqw0753 [place] [phone]. Swathi Reis RBC 3.85 106/ul Critically low 4.20-5.40 [facility] Comment on above: Performed By: #### C BC ####[facility] Oheqiczlfu5570 [place] [phone]. Swathi Reis WBC 18.4 103/ul Critically high 4.0-11.0 [facility] Comment on above: Performed By: #### C BC ####[facility] Yxuxrnigxy0080 [place] [phone]. Swathi Reis CTA CHEST WO W CONon 022 CTA CHEST WO W CON Normal [facility] CULTURE BLOODon 08-19-2022 Microscopic examination of blood, culture Culture Observations: NO GROWTH AT 5 DAYS. Normal [facility] Comment on above: Performed By: #### B LDCX2 ####[facility] Xhcxqwxqel0745 [place] [phone]. Swathi Reis Microscopic examination of blood, culture Culture Observations: NO GROWTH AT 5 DAYS. Normal [facility] Comment on above: Performed By: #### B LDCX1 ####[facility] Afuwyodgwx2040 [place] [address]Dr. Swathi Reis Covid-19 PCR (CVDTB)on 07-25 SARS-CoV-2 (COVID-19) RNA ÓSCAR+probe Ql (Unsp spec) Not detected Normal NOT DETECTED [facility] Comment on above: Result Comment: When diagnostic testing is negative, the possibility of a false negative should be considered inthe context of a patient's recent exposures and the presence of clinical signs and symptomsconsistent with SARS-CoV-2.This test is not yet approved or cleared by the [place] FDA. When there are no FDA-approved or cleared tests available, and other criteria are met, FDA can make tests available under an emergency access mechanism called an Emergency Use Authorization (EUA). The EUA for this test is supported by the [place] of Health and Human Service's declaration that circumstances exist to justify the emergency use of in vitro diagnostics for the detection and/or diagnosis of the virus that causes COVID-19. This EUA will remain in effect for the duration of the COVID-19 declaration justifying emergency of IVDs, unless it is terminated or revoked by the FDA (after which the test may no longer be used). Performed By: #### C VDTBH ####[facility] [address] [place] [address]Dr. Swathi Reis Performed By: #### R SPLUS ####[facility] Dkvjwhwqch[address] [place] [address]Dr. Swathi Reis LACTATE/LACTIC ACIDon 2021 Lactate [Moles/Vol] 1.5 mmol/L Normal 0.4-1.9 [facility] Comment on above: Performed By: #### L ACT ####[facility] Zxv[address]zs[address] [place] [address]Dr. Swathi Reis LIPASEon 08-19-2022 Lipase [Catalytic activity/Vol] 130.0 U/L Normal 73.0-393.0 [facility] Comment on above: Performed By: #### L IPA, BNP ####[facility] H[address]xedl[address] [place] [address]Dr. Swathi Reis POINT OF CARE GLUCOSEon 07-25 Glucose [Mass/Vol] 222 mg/dL Critically high -106 [facility] Comment on above: Performed By: #### P OCGLUC ####[facility] Aljpbuwwme[address] [place], [place] [address]Dr. Swathi Reis Glucose [Mass/Vol] 166 mg/dL Critically high -106 [facility] Comment on above: Performed By: #### P OCGLUC ####[facility] Ufugiqrtdj136[address] [place], [place] [address]Dr. Swathi Reis Glucose [Mass/Vol] 213 mg/dL Critically high -106 [facility] Comment on above: Performed By: #### P OCGLUC ####[facility] Zuypxotwob419[address] [place], [place] [address]Dr. Swathi Reis RESPIRATORY PANEL PLUSon Adenovirus Not detected Normal NOT DETECTED [facility] Comment on above: Performed By: #### R SPLUS ####[facility] Lnxcxcqsre[address] [place], [place] [address]Dr. tracy Reis B. Parapertusis Not detected Normal NOT DETECTED [facility] Comment on above: Performed By: #### R SPLUS ####[facility] Felvtyyvuj[address] [place], [place] [address]Dr. Swathi Reis B. Pertussis Not detected Normal NOT DETECTED [facility] Comment on above: Performed By: #### R SPLUS ####[facility] Hwqtisoxhs[address] [place], [place] [address]Dr. tracy [facility] Chlamydia Pneumoniae Not detected Normal NOT DETECTED [facility] Comment on above: Performed By: #### R SPLUS ####[facility] Neuhaaiqvi199[address] [place], [place] [address]Dr. tracy [facility] Coronavirus 229E Not detected Normal NOT DETECTED [facility] Comment on above: Performed By: #### R SPLUS ####[facility] Skygdfisxa369[address] [place], [place] [address]Dr. Swathi [facility] Coronavirus HKU1 Not detected Normal NOT DETECTED [facility] Comment on above: Performed By: #### R SPLUS ####[facility] Qhwmixmgcy1327[address] [place], [place] [address]Dr. Swathi [facility] Coronavirus NL63 Not detected Normal NOT DETECTED [facility] Comment on above: Performed By: #### R SPLUS ####[facility] Bxnrwrbzpy2519[address] [place], [place] [address]Dr. Swathi [facility] Coronavirus OC43 Not detected Normal NOT DETECTED [facility] Comment on above: Performed By: #### R SPLUS ####[facility] Ukaiqcpbmb9[address] [place], [place] [address]Dr. Swathi [facility] Influenza A H1 2009 Not detected Normal NOT DETECTED [facility] Comment on above: Performed By: #### R SPLUS ####[facility] Vfvdkonsqg899[address] [place], [place] [address]Dr. Swathi Reis Influenza A H3 Not detected Normal NOT DETECTED [facility] Comment on above: Performed By: #### R SPLUS ####[facility] Eqztrozrvy635[address] [place], [place] [address]Dr. Swathi [facility] Influenza B Not detected Normal NOT DETECTED [facility] Comment on above: Performed By: #### R SPLUS ####[facility] Hkshrscvji277[address] [place], [place] [address]Dr. Swathi [facility] Metapneumovirus Not detected Normal NOT DETECTED [facility] Comment on above: Performed By: #### R SPLUS ####[facility] Jijxvuihty357[address] [place], [place] [address]Dr. Swathi Reis Mycoplas. Pneumoniae Not detected Normal NOT DETECTED [facility] Comment on above: Performed By: #### R SPLUS ####[facility] Xgeuhrdfyg[address] [place], [place] [address]Dr. Swathi Reis Parainfluenza 1 Not detected Normal NOT DETECTED [facility] Comment on above: Performed By: #### R SPLUS ####[facility] Dlfztgghys726[address] [place], [place] [address]Dr. Swathi Reis Parainfluenza 2 Not detected Normal NOT DETECTED [facility] Comment on above: Performed By: #### R SPLUS ####[facility] Rvgqlsktja757[address] [place], [place] [address]Dr. Swathi Reis Parainfluenza 3 Not detected Normal NOT DETECTED [facility] Comment on above: Performed By: #### R SPLUS ####[facility] Plemdbwudh57[address] [place], [place] [address]Dr. Swathi Reis Parainfluenza 4 Not detected Normal NOT DETECTED [facility] Comment on above: Performed By: #### R SPLUS ####[facility] Ufsqwydhoy[address] [place], [place] [address]Dr. Swathi Reis Rhino/Enterovirus Not detected Normal NOT DETECTED [facility] Comment on above: Performed By: #### R SPLUS ####[facility] Uiryzivlpw206[address] [place], [place] [address]Dr. Swathi Reis RP2 Header 1 RESPIRATORY PANEL: VIRUSES Normal [facility] Comment on above: Performed By: #### R SPLUS ####[facility] Cleewkfkgb[address] [place], [place] [address]Dr. Swathi Reis RP2 Header 2 RESPIRATORY PANEL: BACTERIA Normal [facility] Comment on above: Performed By: #### R SPLUS ####[facility] Eratxypbka[address] [place], [place] [address]Dr. Swathi Reis RSV Not detected Normal NOT DETECTED [facility] Comment on above: Performed By: #### R SPLUS ####[facility] Nuldmdurus[address] [place], [place] [address]Dr. Swathi Reis XR CHEST 1 Von 08-19-2022 XR CHEST 1 V Normal [facility] BNPon 08-18-2022 Natriuretic peptide B (Bld) [Mass/Vol] 2955.0 pg/mL Critically high <=1,800.0 [facility] Comment on above: Performed By: #### B INTERNAL CONTROLS SPECIALIST ####[facility] [address]ibr[address] [place] [id number]. Swathi Chato CARDIAC TRINA ADMITon 022 CK [Catalytic activity/Vol] 26 U/L Normal 26-192 [facility] Comment on above: Performed By: #### B FAY, RACQUEL ####[facility] [address] [place] [id number]. Swathi Reis CK.MB [Mass/Vol] 0.79 ng/mL Normal <=3.60 [facility] Comment on above: Performed By: #### B FAY, RACQUEL ####[facility] Ony[address]hpowi[address] [place] [address]Dr. Inessatracy Reis HSTROP 16.0 pg/mL Normal 4.0-51.3 [facility] Comment on above: Result Comment: CUT- OFF POINTS HAVE BEEN ESTABLISHED BASED ON THE FOURTH UNIVERSAL DEFINITIONS OF MYOCARDIALINFARCTION. THE UPPER REFERENCE LIMIT (URL) OF TROPONIN, DEFINED THE 99TH PERCENTILE OFcTnI DISTRIBUTION IN A REFERENCE POPULATION, HAS BEEN CONFIRMED THE DECISION THRESHOLDFOR IA DIAGNOSIS. Performed By: #### B RACQUEL APONTE ####[facility] Rnoroyyspy[address] [place], [place] [address]Dr. Inessatracy Reis GUANACO 47 ng/mL Normal 9-82 [facility] Comment on above: Performed By: #### B RACQUEL APONTE ####[facility] Hz[address]ifknfbd69[address] [place] [address]Dr. Swathi Reis CBC AUTO DIFFon 08-18-2022 BASO # 0.1 103/ul Normal 0.0-0.1 [facility] Comment on above: Performed By: #### C BC ####[facility] [address]epbrveff[address] [place] [address]Dr. Swathi Reis Basophils/100 WBC (Bld) 0.4 % Normal 0.2-2.0 [facility] Comment on above: Performed By: #### C BC ####[facility] Nklekidvwq8[address] [place], [place] [address]Dr. Swathi Reis EO # 0.1 103/ul Normal 0.0-0.7 [facility] Comment on above: Performed By: #### C BC ####[facility] D[address]hfqamly[address] [place] [address]Dr. Swathi Reis Eosinophils/100 WBC (Bld) 0.9 % Normal 0.9-7.0 [facility] Comment on above: Performed By: #### C BC ####[facility] I[address]ebiuk[address] [place] [address]Dr. Swathi Reis Erythrocyte distribution width (RBC) [Ratio] 14.2 % Normal 11.0-15.0 [facility] Comment on above: Performed By: #### C BC ####[facility] Ificeqtrpc653[address] [place], [place] [address]Dr. Swathi Reis Hematocrit (Bld) [Volume fraction] 34.1 % Critically low 36.0-48.0 [facility] Comment on above: Performed By: #### C BC ####[facility] Xtcucljxuh[address] [place], [place] [address]Dr. Swathi Reis Hemoglobin (Bld) [Mass/Vol] 11.2 g/dL Critically low 12.0-16.0 [facility] Comment on above: Performed By: #### C BC ####[facility] Ooiogqirbq[address] [place], [place] [address]Dr. Swathi Reis IG # 0.06 10e3/ul Critically high 0.00-0.03 [facility] Comment on above: Performed By: #### C BC ####[facility] Bljeblapca[address] [place], [place] [address]Dr. Swathi Reis IG % 0.4 % Normal 0.0-0.5 [facility] Comment on above: Performed By: #### C BC ####[facility] Skccrrouzn[address] [place], [place] [address]Dr. Swathi Reis LYMPH # 1.4 103/ul Normal 1.2-3.8 [facility] Comment on above: Performed By: #### C BC ####[facility] Azqensterz[address] [place], [place] [address]Dr. Swathi Reis Lymphocytes/100 WBC (Bld) 10.1 % Critically low 20.5-60.0 [facility] Comment on above: Performed By: #### C BC ####[facility] [address]yuekpefr[address] [place] [id number]. Swathi Reis MANUAL DIFF REQ NO Normal [facility] Comment on above: Performed By: #### C BC ####[facility] Mqgduiabki4299 [place] [phone]. Swathi Reis MCH (RBC) [Entitic mass] 29.2 pg Normal 26.7-34.0 [facility] Comment on above: Performed By: #### C BC ####[facility] Ryddmurdov12[address] [place] [phone]. Swathi Reis MCHC (RBC) [Mass/Vol] 32.8 g/dL Normal 29.9-35.2 [facility] Comment on above: Performed By: #### C BC ####[facility] [address]olefgxkcc[address] [place], [place] [address]Dr. Swathi Reis MCV (RBC) [Entitic vol] 89.0 fL Normal 81.0-99.0 [facility] Comment on above: Performed By: #### C BC ####[facility] Dlmwqwnjnt[address] [place], [place] [id number]. Swathi Reis MONO # 1.1 103/ul Critically high 0.3-0.8 [facility] Comment on above: Performed By: #### C BC ####[facility] Fbplcjzbbj9[address] [place], [place] [address]Dr. Swathi Reis Monocytes/100 WBC (Bld) 8.3 % Normal 1.7-12.0 [facility] Comment on above: Performed By: #### C BC ####[facility] Bvlnpnhkdz232[address] [place] [id number]. Swathi Reis NEUT # 11.0 103/ul Critically high 1.4-6.5 [facility] Comment on above: Performed By: #### C BC ####[facility] Itkbdddxme6259 [place] [phone]. Swathi Reis Neutrophils/100 WBC (Bld) 79.9 % Critically high 43.0-75.0 [facility] Comment on above: Performed By: #### C BC ####[facility] Xlb[address]ywle8[address] [place], [place] [address]Vc. Swathi Reis Platelet mean volume (Bld) [Entitic vol] 10.7 fL Normal 9.5-13.5 [facility] Comment on above: Performed By: #### C BC ####[facility] Niqatdnizj2622 [place], [place] [address]Xd. Swathi Reis PLT 408 103/ul Normal 150-450 [facility] Comment on above: Performed By: #### C BC ####[facility] Atmp[address]glma0750 [place], [place] [address]Wd. Swathi Reis RBC 3.83 106/ul Critically low 4.20-5.40 [facility] Comment on above: Performed By: #### C BC ####[facility] Dkhgbjrvey0992 [place], [place] [address]Pm. Swathi Reis WBC 13.8 103/ul Critically high 4.0-11.0 [facility] Comment on above: Performed By: #### C BC ####[facility] [address] [place], [place] [address]Gw. Swathi Reis Covid-19 PCR ([facility])on 07-25 SARS-CoV-2 (COVID-19) RNA ÓSCAR+probe Ql (Unsp spec) Not detected Normal NOT DETECTED [facility] Comment on above: Result Comment: When diagnostic testing is negative, the possibility of a false negative should be considered inthe context of a patient's recent exposures and the presence of clinical signs and symptomsconsistent with SARS-CoV-2.This test is not yet approved or cleared by the [place] FDA. When there are no FDA-approved or cleared tests available, and other criteria are met, FDA can make tests available under an emergency access mechanism called an Emergency Use Authorization (EUA). The EUA for this test is supported by the [place] of Health and Human Service's declaration that circumstances exist to justify the emergency use of in vitro diagnostics for the detection and/or diagnosis of the virus that causes COVID-19. This EUA will remain in effect for the duration of the COVID-19 declaration justifying emergency of IVDs, unless it is terminated or revoked by the FDA (after which the test may no longer be used). Performed By: #### C VDTBH ####[facility] Nwhroukbdf[address] [place], [place] [address]Dr. Swathi Reis D-DIMERon 08-18-2022 D-DIMER 1.83 mg/L FEU Critically high <=0.59 [facility] Comment on above: Performed By: #### D DIM ####[facility] Cqudxodgkg[address] [place] [address]Dr. Swathi Reis D-DIMER COMMENTS SEE BELOW Normal [facility] Comment on above: Result Comment: Incr eases in D-Dimer concentration observed with thromboembolic events can be variable due to localization, size, and age of the thrombus. Therefore, a thromboembolic event cannot be diagnosed with certainty on the basis of the reference range. D-Dimers may also be elevated for a variety of disorders including: advanced age, , coronary disease, cancer, liver disease, infection, inflammation, hematoma, DIC, trauma, post-surgery, diabetes, thrombolytic or anticoagulant therapy, stress, and generalized hospitalization. Performed By: #### D DIM ####[facility] Xyvdxrfrmt[address] [place], [place] [address]Dr. Swathi Reis INFLUENZA A AND B AGon 08-18 INFLUENZA A AG Negative Normal NEGATIVE SEE COMMENT [facility] Comment on above: Performed By: #### R SV, INFLUAB ####[facility] Efwlmzgkbf[address] [place], [place] [address]Dr. Swathi Reis INFLUENZA B AG Negative Normal NEGATIVE SEE COMMENT [facility] Comment on above: Performed By: #### R SV, INFLUAB ####[facility] Zjlohmikkg[address] [place], [place] [address]Dr. Swathi Reis INFLUPOSH SEE BELOW Normal [facility] Comment on above: Result Comment: NOTE : Live attenuated influenzae vaccine viruses can cause a positive result for a rapid influenza diagnostic test if administered up to 7 days prior to rapid testing. Performed By: #### R SV, INFLUAB ####[facility] Zjuqhmpccj[address] [place], [place] [address]Dr. Swathi Reis INFLUPOSHB SEE BELOW Normal [facility] Comment on above: Result Comment: NOTE : Live attenuated influenzae vaccine viruses can cause a positive result for a rapid influenza diagnostic test if administered up to 7 days prior to rapid testing. Performed By: #### R SV, INFLUAB ####[facility] Tnx[address]fadxfa16[address] [place] [address]Dr. Swathi Reis INTERNAL CONTROLS Within Normal Limits Normal Wi thin Normal Limits [facility] Comment on above: Performed By: #### R SV, INFLUAB ####[facility] Yvrluulcpa[address] [place], [place] [address]Dr. Swathi Reis LACTATE/LACTIC ACIDon 2021 Lactate [Moles/Vol] 1.9 mmol/L Normal 0.4-1.9 [facility] Comment on above: Performed By: #### L ACT ####[facility] Rxtooencbl[address] [place], [place] [address]Dr. Swathi Reis PROF CHEM 8 (BAS METB)on Anion gap [Moles/Vol] 13.9 mmol/L Normal [facility] Comment on above: Performed By: #### RACQUEL Gonsales MP ####[facility] Bvkplsccvl9[address] [place], [place] [address]Dr. Swathi Reis Calcium [Mass/Vol] 9.9 mg/dL Normal 8.5-10.1 [facility] Comment on above: Performed By: #### B FAY, CMADM ####[facility] C[address]xznzlkk[address] [place], [place] [address]Dr. Swathi Reis Chloride [Moles/Vol] 102 mmol/L Normal 98-107 [facility] Comment on above: Performed By: #### B FAY, CMADM ####[facility] Zmuogszyix[address] [place], [place] [address]Dr. Swathi Reis CO2 [Moles/Vol] 29.6 mmol/L Normal 21.0-32.0 [facility] Comment on above: Performed By: #### Dru APONTE, CMADM ####[facility] Cjtdmhctff[address] [place], [place] [address]Dr. Swathi Reis Creatinine [Mass/Vol] 1.61 mg/dL Critically high 0.55-1.02 [facility] Comment on above: Performed By: #### RACQUEL Gonsales MP ####[facility] Qrqdhptqwa5164 [place] [address]Dr. Swathi Reis EGFR-AF CROATIAN 38 mL/min/1.73m2 Critically low >=60 [facility] Comment on above: Performed By: #### RACQUEL Gonsales MP ####[facility] Yrlzpmmzlg78[address] [place] [address]Dr. Swathi Reis EGFR-NON AF CROATIAN 31 mL/min/1.73m2 Critically low >=60 [facility] Comment on above: Performed By: #### RACQUEL Gonsales MP ####[facility] Ozepksyvai[address] [place], [place] [address]Dr. Swathi Reis Glucose [Mass/Vol] 192 mg/dL Critically high 74-106 [facility] Comment on above: Performed By: #### RACQUEL Gonsales MP ####[facility] Vyuavydfsh[address] [place], [place] [address]Dr. Swathi Reis Potassium [Moles/Vol] 4.5 mmol/L Normal 3.5-5.1 [facility] Comment on above: Performed By: #### RACQUEL Gonsales MP ####[facility] Syvzmnzuhh[address] [place], [place] [address]Dr. Swathi Reis Sodium [Moles/Vol] 141 mmol/L Normal 136-145 [facility] Comment on above: Performed By: #### RACQUEL Gonsales MP ####[facility] Kcwzdzzcqu[address] [place], [place] [address]Dr. Swathi Reis Urea nitrogen [Mass/Vol] 27.0 mg/dL Critically high 7.0-18.0 [facility] Comment on above: Performed By: #### RACQUEL Gonsales MP ####[facility] E[address]jpu[address] [place] [address]Dr. Swathi Reis Urea nitrogen/Creatinine [Mass ratio] 16.8 mg/mg Normal [facility] Comment on above: Performed By: #### RACQUEL Gonsales MP ####[facility] Wwjqhpjyty[address] [place] [address]Dr. Swathi Reis RSVon 08-18-2022 RSV AG Negative Normal NEGATIVE [facility] Comment on above: Performed By: #### R SV, INFLUAB ####[facility] Kaewsuaxql[address] [place], [place] [address]Dr. Swathi Reis BNPon 07-12-2022 Natriuretic peptide B (Bld) [Mass/Vol] 5375.0 pg/mL Critically high <=1,800.0 [facility] Comment on above: Performed By: #### B INTERNAL CONTROLS SPECIALIST, CMP ####[facility] Jcbsnzewkt[address] [place], [place] [address]Dr. Swathi Reis CBC AUTO DIFFon 07-12-2022 BASO # 0.1 103/ul Normal 0.0-0.1 [facility] Comment on above: Performed By: #### C BC ####[facility] Hqjpxnlsup[address] [place], [place] [address]Dr. Swathi Reis Basophils/100 WBC (Bld) 0.7 % Normal 0.2-2.0 [facility] Comment on above: Performed By: #### C BC ####[facility] Kaauepmbmq[address] [place], [place] [address]Dr. Swathi Reis EO # 0.3 103/ul Normal 0.0-0.7 [facility] Comment on above: Performed By: #### C BC ####[facility] Aecjukgrhe[address] [place], [place] [address]Dr. Swathi Reis Eosinophils/100 WBC (Bld) 3.2 % Normal 0.9-7.0 [facility] Comment on above: Performed By: #### C BC ####[facility] Rlcxilfdky[address] [place], [place] [address]Dr. Swathi Reis Erythrocyte distribution width (RBC) [Ratio] 13.3 % Normal 11.0-15.0 [facility] Comment on above: Performed By: #### C BC ####[facility] Rnuamyzocg[address] [place], [place] [address]Dr. Swathi Reis Hematocrit (Bld) [Volume fraction] 29.9 % Critically low 36.0-48.0 [facility] Comment on above: Performed By: #### C BC ####[facility] Z[address]breqfpu98[address] [place] [address]DrOtto Reis Hemoglobin (Bld) [Mass/Vol] 9.7 g/dL Critically low 12.0-16.0 [facility] Comment on above: Performed By: #### C BC ####[facility] Jyizggngow[address] [place] [address]DrOtto Reis IG # 0.05 10e3/ul Critically high 0.00-0.03 [facility] Comment on above: Performed By: #### C BC ####[facility] F[address]mwzcw[address] [place] [address]DrOtto Reis IG % 0.5 % Normal 0.0-0.5 [facility] Comment on above: Performed By: #### C BC ####[facility] Zfhishswqh[address] [place], [place] [address]DrOtto Reis LYMPH # 1.5 103/ul Normal 1.2-3.8 [facility] Comment on above: Performed By: #### C BC ####[facility] N[address]lfhs40[address] [place] [address]DrOtto Reis Lymphocytes/100 WBC (Bld) 14.0 % Critically low 20.5-60.0 [facility] Comment on above: Performed By: #### C BC ####[facility] Wnlgkpxldm87[address] [place] [address]DrOtto Reis MANUAL DIFF REQ NO Normal [facility] Comment on above: Performed By: #### C BC ####[facility] Syliahvsvw1348 [place] [id number] Reis MCH (RBC) [Entitic mass] 30.1 pg Normal 26.7-34.0 [facility] Comment on above: Performed By: #### C BC ####[facility] Xhhzodmrtc2487 [place] [phone] Reis MCHC (RBC) [Mass/Vol] 32.4 g/dL Normal 29.9-35.2 [facility] Comment on above: Performed By: #### C BC ####[facility] Rcqrkyupgk6623 [place] [phone] Swathi Chato MCV (RBC) [Entitic vol] 92.9 fL Normal 81.0-99.0 [facility] Comment on above: Performed By: #### C BC ####[facility] Wdqehyiapj9085 [place] [address]DrOtto Reis MONO # 1.2 103/ul Critically high 0.3-0.8 [facility] Comment on above: Performed By: #### C BC ####[facility] Uonxahxcwo1549 [place] [address]DrOtto Reis Monocytes/100 WBC (Bld) 11.1 % Normal 1.7-12.0 [facility] Comment on above: Performed By: #### C BC ####[facility] Cstxrvqthk[address] [place], [place] [address]DrOtto Reis NEUT # 7.5 103/ul Critically high 1.4-6.5 [facility] Comment on above: Performed By: #### C BC ####[facility] Xrmxqxfcxv[address] [place], [place] [address]DrOtto Reis Neutrophils/100 WBC (Bld) 70.5 % Normal 43.0-75.0 [facility] Comment on above: Performed By: #### C BC ####[facility] Qovjculdxe0412[address] [place], [place] [address]DrOtto Reis Platelet mean volume (Bld) [Entitic vol] 10.7 fL Normal 9.5-13.5 [facility] Comment on above: Performed By: #### C BC ####[facility] Jdmmtepeqh407[address] [place], [place] [address]DrOtto Reis PLT 291 103/ul Normal 150-450 [facility] Comment on above: Performed By: #### C BC ####[facility] Tztpsbylsj4537 [place] [phone] Reis RBC 3.22 106/ul Critically low 4.20-5.40 [facility] Comment on above: Performed By: #### C BC ####[facility] Wohkepbuzu2946 [place] [address]Dr. Swathi Reis WBC 10.6 103/ul Normal 4.0-11.0 [facility] Comment on above: Performed By: #### C BC ####[facility] Kqskknvimk4138 [place] [address]Dr. Swathi Reis POINT OF CARE GLUCOSEon 06-24 0-2021 Glucose [Mass/Vol] 191 mg/dL Critically high 74-106 T [facility] Comment on above: Performed By: #### P OCGLUC ####[facility] Uflkkhxwkf293[address] [place], [place] [address]Dr. Swathi Reis PROF 14(COMP METB)on 022 Albumin [Mass/Vol] 2.4 g/dL Critically low 3.4-5.0 [facility] Comment on above: Performed By: #### B INTERNAL CONTROLS SPECIALIST, CMP ####[facility] Ztyephdhtu258[address] [place], [place] [address]Dr. Swathi Reis Albumin/Globulin [Mass ratio] 0.6 {ratio} Normal [facility] Comment on above: Performed By: #### B INTERNAL CONTROLS SPECIALIST, CMP ####[facility] Ixucttaxtc815[address] [place], [place] [address]Dr. Swathi Reis ALP [Catalytic activity/Vol] 73 U/L Normal 46-116 [facility] Comment on above: Performed By: #### B INTERNAL CONTROLS SPECIALIST, CMP ####[facility] Cckmyodwln9424 [place] [address]Dr. Swathi Reis ALT [Catalytic activity/Vol] 11 U/L Critically low 14-59 [facility] Comment on above: Performed By: #### B INTERNAL CONTROLS SPECIALIST, CMP ####[facility] Wxmnauzrod004[address] [place], [place] [address]Dr. Swathi Reis Anion gap [Moles/Vol] 7.7 mmol/L Normal [facility] Comment on above: Performed By: #### B INTERNAL CONTROLS SPECIALIST, CMP ####[facility] Pjawhvpuhc530[address] [place], [place] [address]Dr. Swathi Reis AST [Catalytic activity/Vol] 15 U/L Normal 15-37 [facility] Comment on above: Performed By: #### B INTERNAL CONTROLS SPECIALIST, CMP ####[facility] Hodmhnhgce315[address] [place], [place] [address]Dr. Swathi Reis Bilirubin [Mass/Vol] 0.3 mg/dL Normal 0.2-1.0 [facility] Comment on above: Performed By: #### B INTERNAL CONTROLS SPECIALIST, CMP ####[facility] Pwcvjryukn687[address] [place], [place] [address]Dr. Swathi Reis Calcium [Mass/Vol] 9.3 mg/dL Normal 8.5-10.1 [facility] Comment on above: Performed By: #### B INTERNAL CONTROLS SPECIALIST, CMP ####[facility] Xjhryuzejq1418[address] [place], [place] [address]Dr. Swathi Reis Chloride [Moles/Vol] 104 mmol/L Normal 98-107 [facility] Comment on above: Performed By: #### B INTERNAL CONTROLS SPECIALIST, CMP ####[facility] Qcfbcbsnoa865[address] [place], [place] [address]Dr. Swathi Reis CO2 [Moles/Vol] 30.2 mmol/L Normal 21.0-32.0 [facility] Comment on above: Performed By: #### B INTERNAL CONTROLS SPECIALIST, CMP ####[facility] Aialldxqsn0737[address] [place], [place] [address]Dr. Swathi Reis Creatinine [Mass/Vol] 1.69 mg/dL Critically high 0.55-1.02 [facility] Comment on above: Performed By: #### B INTERNAL CONTROLS SPECIALIST, CMP ####[facility] Vwpunolrfr28[address] [place], [place] [address]Dr. Swathi Reis EGFR-AF CROATIAN 36 mL/min/1.73m2 Critically low >=60 [facility] Comment on above: Performed By: #### B INTERNAL CONTROLS SPECIALIST, CMP ####[facility] Kvopugfiik4927[address] [place], [place] [address]Dr. Swathi Reis EGFR-NON AF CROATIAN 29 mL/min/1.73m2 Critically low >=60 [facility] Comment on above: Performed By: #### B INTERNAL CONTROLS SPECIALIST, CMP ####[facility] Lvsvitsfzt377[address] [place], [place] [address]Dr. Swathi Reis Globulin (S) [Mass/Vol] 4.0 g/dL Normal [facility] Comment on above: Performed By: #### B INTERNAL CONTROLS SPECIALIST, CMP ####[facility] Algaojipkb383[address] [place], [place] [address]Dr. Swathi Reis Glucose [Mass/Vol] 110 mg/dL Critically high 74-106 [facility] Comment on above: Performed By: #### B INTERNAL CONTROLS SPECIALIST, CMP ####[facility] Isjwkuklow3112[address] [place], [place] [address]Dr. Swathi Reis Potassium [Moles/Vol] 3.9 mmol/L Normal 3.5-5.1 [facility] Comment on above: Performed By: #### B INTERNAL CONTROLS SPECIALIST, CMP ####[facility] Jbkibfjxic376[address] [place], [place] [address]Dr. Swathi Reis Protein [Mass/Vol] 6.4 g/dL Normal 6.4-8.2 [facility] Comment on above: Performed By: #### B INTERNAL CONTROLS SPECIALIST, CMP ####[facility] Nzmiindpiu764[address] [place], [place] [address]Dr. Swathi Reis Sodium [Moles/Vol] 138 mmol/L Normal 136-145 [facility] Comment on above: Performed By: #### B INTERNAL CONTROLS SPECIALIST, CMP ####[facility] Ejqyuntune56220[address] [place], [place] [address]Dr. Swathi Reis Urea nitrogen [Mass/Vol] 21.0 mg/dL Critically high 7.0-18.0 [facility] Comment on above: Performed By: #### B INTERNAL CONTROLS SPECIALIST, CMP ####[facility] Bhflkajrbk7099[address] [place], [place] [address]Dr. Swathi Reis Urea nitrogen/Creatinine [Mass ratio] 12.4 mg/mg Normal [facility] Comment on above: Performed By: #### B INTERNAL CONTROLS SPECIALIST, CMP ####[facility] Eyeyciuyqy518[address] [place], [place] [address]Dr. Swathi Reis BNPon 07-11-2022 Natriuretic peptide B (Bld) [Mass/Vol] 2516.0 pg/mL Critically high <=1,800.0 [facility] Comment on above: Performed By: #### B INTERNAL CONTROLS SPECIALIST, CMP ####[facility] Fbmkyzpgtu935[address] [place], [place] [address]Dr. Swathi Reis C. DIFF PCRon 07-11-2022 C. DIFFICILE PCR Positive Critically abnormal NEGATIVE [facility] Comment on above: Performed By: #### C DIFPOC ####[facility] Ogimgdlnjj301[address] [place], [place] [address]Dr. Swathi Reis CBC AUTO DIFFon 07-11-2022 BASO # 0.0 103/ul Normal 0.0-0.1 [facility] Comment on above: Performed By: #### C BC ####[facility] Dtgtwjngbz069[address] [place], [place] [address]Dr. Swathi Reis Basophils/100 WBC (Bld) 0.4 % Normal 0.2-2.0 [facility] Comment on above: Performed By: #### C BC ####[facility] Kzacrgiyrk[address] [place], [place] [address]Dr. Swathi Reis EO # 0.2 103/ul Normal 0.0-0.7 [facility] Comment on above: Performed By: #### C BC ####[facility] Bwrgnknhud8[address] [place], [place] [address]Dr. Swathi Reis Eosinophils/100 WBC (Bld) 2.2 % Normal 0.9-7.0 [facility] Comment on above: Performed By: #### C BC ####[facility] Kajnmfwrab098[address] [place], [place] [address]Dr. Swathi Reis Erythrocyte distribution width (RBC) [Ratio] 13.4 % Normal 11.0-15.0 [facility] Comment on above: Performed By: #### C BC ####[facility] Edhlxpaefs253[address] [place], [place] [address]Dr. Swathi Reis Hematocrit (Bld) [Volume fraction] 27.0 % Critically low 36.0-48.0 [facility] Comment on above: Performed By: #### C BC ####[facility] Samdeoqlas7984 [place] [address]Dr. Swathi Reis Hemoglobin (Bld) [Mass/Vol] 8.5 g/dL Critically low 12.0-16.0 [facility] Comment on above: Performed By: #### C BC ####[facility] Dzsacfzxkw9117 [place] [phone]. Swathi Reis IG # 0.07 10e3/ul Critically high 0.00-0.03 [facility] Comment on above: Performed By: #### C BC ####[facility] Gtvjqcvwps9380 [place] [address]Dr. Swathi Reis IG % 0.6 % Critically high 0.0-0.5 [facility] Comment on above: Performed By: #### C BC ####[facility] Joymrmdxql8038 [place] [address]Dr. Swathi Reis LYMPH # 1.2 103/ul Normal 1.2-3.8 [facility] Comment on above: Performed By: #### C BC ####[facility] Ympiiejwzn9601 [place] [address]Dr. Swathi Reis Lymphocytes/100 WBC (Bld) 10.5 % Critically low 20.5-60.0 [facility] Comment on above: Performed By: #### C BC ####[facility] Syphqplaae3845 [place] [address]Dr. Swathi Reis MANUAL DIFF REQ NO Normal [facility] Comment on above: Performed By: #### C BC ####[facility] Appnqkzevi9917 [place] [address]Dr. Swathi Reis MCH (RBC) [Entitic mass] 29.6 pg Normal 26.7-34.0 [facility] Comment on above: Performed By: #### C BC ####[facility] Lpykqgdowk12[address] [place], [place] [address]Dr. Swathi Reis MCHC (RBC) [Mass/Vol] 31.5 g/dL Normal 29.9-35.2 [facility] Comment on above: Performed By: #### C BC ####[facility] Hkhaxjinuu2235 [place] [address]Dr. Swathi Reis MCV (RBC) [Entitic vol] 94.1 fL Normal 81.0-99.0 [facility] Comment on above: Performed By: #### C BC ####[facility] Dllvcjcjvz9289 [place] [address]Dr. Swathi Reis MONO # 1.1 103/ul Critically high 0.3-0.8 [facility] Comment on above: Performed By: #### C BC ####[facility] Hhioergrkp4919[address] [place], [place] [address]Dr. Swathi Reis Monocytes/100 WBC (Bld) 9.9 % Normal 1.7-12.0 [facility] Comment on above: Performed By: #### C BC ####[facility] Yhxeylbhfa855[address] [place], [place] [address]Dr. Swathi Reis NEUT # 8.4 103/ul Critically high 1.4-6.5 [facility] Comment on above: Performed By: #### C BC ####[facility] Phtjpbsibd904[address] [place], [place] [address]Dr. Swathi Reis Neutrophils/100 WBC (Bld) 76.4 % Critically high 43.0-75.0 [facility] Comment on above: Performed By: #### C BC ####[facility] Cpkyfpozhg943[address] [place], [place] [address]Dr. Swathi Reis Platelet mean volume (Bld) [Entitic vol] 10.6 fL Normal 9.5-13.5 [facility] Comment on above: Performed By: #### C BC ####[facility] Ukaabpfpzd[address] [place], [place] [id number]. Swathi Reis PLT 248 103/ul Normal 150-450 [facility] Comment on above: Performed By: #### C BC ####[facility] Prnxeqhaom769[address] [place], [place] [address]Dr. Swathi Reis RBC 2.87 106/ul Critically low 4.20-5.40 [facility] Comment on above: Performed By: #### C BC ####[facility] Ffiavoyfma116[address] [place], [place] [address]Dr. Swathi Reis WBC 11.0 103/ul Normal 4.0-11.0 [facility] Comment on above: Performed By: #### C BC ####[facility] Xoscgxvjcp740[address] [place], [place] [address]Dr. Swathi Reis GI PANEL (PCR)on 07-11-2022 Adenovirus F 40/41 Not detected Normal NOT DETECTED [facility] Comment on above: Performed By: #### G IPANEL ####[facility] Wbefnkeidv394[address] [place], [place] [address]Dr. Swathi Reis Astrovirus Not detected Normal NOT DETECTED [facility] Comment on above: Performed By: #### G IPANEL ####[facility] Lzoovrnzaq212[address] [place], [place] [address]Dr. Swathi Reis C. Diff toxin A/B Detected Critically abnormal NOT DETECTED [facility] Comment on above: Performed By: #### G IPANEL ####[facility] Hypeucgipi545[address] [place], [place] [address]Dr. Swathi Reis Campylobacter Not detected Normal NOT DETECTED [facility] Comment on above: Performed By: #### G IPANEL ####[facility] Euqchezgiz715[address] [place], [place] [address]Dr. Inessatracy Reis Cryptosporidium Not detected Normal NOT DETECTED [facility] Comment on above: Performed By: #### G IPANEL ####[facility] Iggkwcdjyu994[address] [place], [place] [address]Dr. Swathi Reis Cyclos. Cayetanensis Not detected Normal NOT DETECTED [facility] Comment on above: Performed By: #### G IPANEL ####[facility] Gwqkbxiypl[address] [place], [place] [address]Dr. Swathi Reis E. Coli O157 Not Applicable Normal Not Applicable [facility] Comment on above: Performed By: #### G IPANEL ####[facility] Axcifwpnsp3[address] [place], [place] [address]Dr. Inessatracy Reis E. histolytica Not detected Normal NOT DETECTED [facility] Comment on above: Performed By: #### G IPANEL ####[facility] Zqnnizzcgd3481 [place] [address]Dr. Swathi Reis EAEC Not detected Normal NOT DETECTED [facility] Comment on above: Performed By: #### G IPANEL ####[facility] Btslgxsxkw713[address] [place], [place] [address]Dr. Swathi Reis EIEC Not detected Normal NOT DETECTED [facility] Comment on above: Performed By: #### G IPANEL ####[facility] Kkwwhjbfij423[address] [place], [place] [address]Dr. Swathi Reis EPEC Not detected Normal NOT DETECTED [facility] Comment on above: Performed By: #### G IPANEL ####[facility] Bxvknzdcab646[address] [place], [place] [address]Dr. Swathi Reis ETEC Not detected Normal NOT DETECTED [facility] Comment on above: Performed By: #### G IPANEL ####[facility] Hzgakudkha244[address] [place], [place] [address]Dr. Swathi Reis G. Lamblia Not detected Normal NOT DETECTED [facility] Comment on above: Performed By: #### G IPANEL ####[facility] Pfensyikxs134[address] [place], [place] [address]Dr. Swathi Reis GIPANEL CONTROLS PASSED Normal [facility] Comment on above: Performed By: #### G IPANEL ####[facility] Jsnwjvmvda346[address] [place], [place] [address]Dr. Swathi Reis GIPNL RICHELLE HEADER GI PANEL BACTERIA Normal T [facility] Comment on above: Performed By: #### G IPANEL ####[facility] Zzwbcrpdze298[address] [place], [place] [address]Dr. Swathi Reis GIPNLHD ECOLI GI PANEL DIARRHEAGEN IC E.COLI / SHIGELLA Normal [facility] Comment on above: Performed By: #### G IPANEL ####[facility] Srfdzhigad296[address] [place], [place] [address]Dr. Swathi Reis GIPNLHD INFO SEE BELOW Normal [facility] Comment on above: Result Comment: EAEC - Enteroaggregative E. Coli EPEC- Enteropathogenic E. Coli ETEC- Enterotoxigenic E. Coli lt/st STEC- Shigella-like toxin-producing E. Coli stx1/stx2 EIEC- Shigella/Enteroinvasive E. Coli Performed By: #### G IPANEL ####[facility] Wcoddmdffp366[address] [place], [place] [address]Dr. Swathi Reis GIPNLHD PARASITES GI PANEL PARASITES Normal [facility] Comment on above: Performed By: #### G IPANEL ####[facility] Msjdduxvhx009[address] [place], [place] [address]Dr. Inessatracy Reis GIPNLHD VIRUS GI PANEL VIRUSES Normal The [place] Comment on above: Performed By: #### G IPANEL ####[facility] Salgnzpage168[address] [place], [place] [address]Dr. Swathi Reis Norovirus GI/GII Not detected Normal NOT DETECTED [facility] Comment on above: Performed By: #### G IPANEL ####[facility] Dbbapthqwp07[address] [place], [place] [address]Dr. Swathi Reis P. Shigelloides Not detected Normal NOT DETECTED [facility] Comment on above: Performed By: #### G IPANEL ####[facility] Amrzmpexvq86350[address] [place], [place] [address]Dr. Swathi Reis Rotavirus A Not detected Normal NOT DETECTED [facility] Comment on above: Performed By: #### G IPANEL ####[facility] Uztyyzgqtp276[address] [place], [place] [address]Dr. Swathi Reis Salmonella Not detected Normal NOT DETECTED [facility] Comment on above: Performed By: #### G IPANEL ####[facility] Vppwhthgmg899[address] [place], [place] [address]Dr. Swathi Reis Sapovirus Not detected Normal NOT DETECTED [facility] Comment on above: Performed By: #### G IPANEL ####[facility] Lehqbvwrkv[address] [place], [place] [address]Dr. Swathi Reis STEC Detected Critically abnormal NOT DETECTED [facility] Comment on above: Performed By: #### G IPANEL ####[facility] Dwsqgwfyoo227[address] [place], [place] [address]Dr. Swathi Reis Vibrio Not detected Normal NOT DETECTED [facility] Comment on above: Performed By: #### G IPANEL ####[facility] Igjvlpbcsi8924 [place] [address]Dr. Swathi Reis Vibrio Cholera Not detected Normal NOT DETECTED [facility] Comment on above: Performed By: #### G IPANEL ####[facility] Uccfjijkjd9666 [place] [address]Dr. Swathi Reis Y. Enterocolitica Not detected Normal NOT DETECTED [facility] Comment on above: Performed By: #### G IPANEL ####[facility] Iucgngnmop7301 [place] [address]Dr. Swathi Reis POINT OF CARE GLUCOSEon 06-23 Glucose [Mass/Vol] 120 mg/dL Critically high 74-106 [facility] Comment on above: Performed By: #### P OCGLUC ####[facility] Ceeamwospg9[address] [place], [place] [address]Dr. Swathi Reis Glucose [Mass/Vol] 193 mg/dL Critically high 74-106 [facility] Comment on above: Performed By: #### P OCGLUC ####[facility] Hwkwvpgecc619[address] [place], [place] [address]Dr. Swathi Reis PROF 14(COMP METB)on 022 Albumin [Mass/Vol] 2.4 g/dL Critically low 3.4-5.0 [facility] Comment on above: Performed By: #### B INTERNAL CONTROLS SPECIALIST, CMP ####[facility] Gngsprznbs[address] [place], [place] [address]Dr. Swathi Reis Albumin/Globulin [Mass ratio] 0.7 {ratio} Normal [facility] Comment on above: Performed By: #### B INTERNAL CONTROLS SPECIALIST, CMP ####[facility] Ianyegmyzc677[address] [place], [place] [address]Dr. Swathi Reis ALP [Catalytic activity/Vol] 70 U/L Normal 46-116 [facility] Comment on above: Performed By: #### B INTERNAL CONTROLS SPECIALIST, CMP ####[facility] Tnhekidsky5596 [place] [address]Dr. Swathi Reis ALT [Catalytic activity/Vol] 12 U/L Critically low 14-59 [facility] Comment on above: Performed By: #### B INTERNAL CONTROLS SPECIALIST, CMP ####[facility] Hqhozujwjm9661 [place] [id number]. Swathi Reis Anion gap [Moles/Vol] 8.7 mmol/L Normal [facility] Comment on above: Performed By: #### B INTERNAL CONTROLS SPECIALIST, CMP ####[facility] Mkijvldlxi67[address] [place] [address]Dr. Swathi Reis AST [Catalytic activity/Vol] 11 U/L Critically low 15-37 [facility] Comment on above: Performed By: #### B INTERNAL CONTROLS SPECIALIST, CMP ####[facility] Arlckavafa[address]66 [place] [address]Dr. Swathi Reis Bilirubin [Mass/Vol] 0.3 mg/dL Normal 0.2-1.0 [facility] Comment on above: Performed By: #### B INTERNAL CONTROLS SPECIALIST, CMP ####[facility] Dyehdyysws[address] [place], [place] [address]Dr. Swathi Reis Calcium [Mass/Vol] 9.1 mg/dL Normal 8.5-10.1 [facility] Comment on above: Performed By: #### B INTERNAL CONTROLS SPECIALIST, CMP ####[facility] Idicdbauiz[address] [place], [place] [address]Dr. Swathi Chato Chloride [Moles/Vol] 107 mmol/L Normal 98-107 [facility] Comment on above: Performed By: #### B INTERNAL CONTROLS SPECIALIST, CMP ####[facility] Mapleuqdct103[address] [place], [place] [address]Dr. Swathi Reis CO2 [Moles/Vol] 27.6 mmol/L Normal 21.0-32.0 [facility] Comment on above: Performed By: #### B INTERNAL CONTROLS SPECIALIST, CMP ####[facility] Fpdjkljdkk[address] [place], [place] [address]Dr. Swathi Reis Creatinine [Mass/Vol] 1.72 mg/dL Critically high 0.55-1.02 [facility] Comment on above: Performed By: #### B INTERNAL CONTROLS SPECIALIST, CMP ####[facility] Opofxolmxi[address] [place], [place] [address]Dr. Swathi Chato EGFR-AF CROATIAN 35 mL/min/1.73m2 Critically low >=60 [facility] Comment on above: Performed By: #### B INTERNAL CONTROLS SPECIALIST, CMP ####[facility] Isaqxhpnmk364[address] [place], [place] [address]Dr. Swathi Reis EGFR-NON AF CROATIAN 29 mL/min/1.73m2 Critically low >=60 [facility] Comment on above: Performed By: #### B INTERNAL CONTROLS SPECIALIST, CMP ####[facility] Nueimzmcpu274[address] [place], [place] [address]Dr. Swathi Chato Globulin (S) [Mass/Vol] 3.6 g/dL Normal [facility] Comment on above: Performed By: #### B INTERNAL CONTROLS SPECIALIST, CMP ####[facility] Gkuejhdlfb388[address] [place], [place] [address]Dr. Inessatracy Chato Glucose [Mass/Vol] 119 mg/dL Critically high 74-106 [facility] Comment on above: Performed By: #### B INTERNAL CONTROLS SPECIALIST, CMP ####[facility] Orpbjhvsol[address] [place], [place] [address]Dr. Swathi Chato Potassium [Moles/Vol] 4.3 mmol/L Normal 3.5-5.1 [facility] Comment on above: Performed By: #### B INTERNAL CONTROLS SPECIALIST, CMP ####[facility] Krausiozsz[address] [place], [place] [address]Dr. Swathi Chato Protein [Mass/Vol] 6.0 g/dL Critically low 6.4-8.2 [facility] Comment on above: Performed By: #### B INTERNAL CONTROLS SPECIALIST, CMP ####[facility] Qcwqjhmzqi[address] [place], [place] [address]Dr. Swathi Chato Sodium [Moles/Vol] 139 mmol/L Normal 136-145 [facility] Comment on above: Performed By: #### B INTERNAL CONTROLS SPECIALIST, CMP ####[facility] Cpjojkkwtf725[address] [place], [place] [address]Dr. Swathi Chato Urea nitrogen [Mass/Vol] 23.0 mg/dL Critically high 7.0-18.0 [facility] Comment on above: Performed By: #### B INTERNAL CONTROLS SPECIALIST, CMP ####[facility] Aateozspyx[address] [place], [place] [id number]. Inessatracy Reis Urea nitrogen/Creatinine [Mass ratio] 13.4 mg/mg Normal [facility] Comment on above: Performed By: #### B INTERNAL CONTROLS SPECIALIST, CMP ####[facility] Rdtqomvbnn[address] [place], [place] [address]Dr. Swathi Reis BNPon 07-10-2022 Natriuretic peptide B (Bld) [Mass/Vol] 2243.0 pg/mL Critically high <=1,800.0 [facility] Comment on above: Performed By: #### B INTERNAL CONTROLS SPECIALIST, CMP ####[facility] Uvcvxbitgl373[address] [place], [place] [address]Dr. Swathi Chato CBC AUTO DIFFon 07-10-2022 BASO # 0.1 103/ul Normal 0.0-0.1 [facility] Comment on above: Performed By: #### C BC ####[facility] Kbzcucvxzu[address] [place], [place] [address]Dr. Swathi Reis Basophils/100 WBC (Bld) 0.7 % Normal 0.2-2.0 [facility] Comment on above: Performed By: #### C BC ####[facility] Opzsqfqrvy[address] [place], [place] [address]Dr. Swathi Reis EO # 0.2 103/ul Normal 0.0-0.7 [facility] Comment on above: Performed By: #### C BC ####[facility] Vlgqgelqlr[address] [place], [place] [address]Dr. Swathi Reis Eosinophils/100 WBC (Bld) 2.1 % Normal 0.9-7.0 [facility] Comment on above: Performed By: #### C BC ####[facility] Hlststssdr[address] [place], [place] [address]Dr. Swathi Reis Erythrocyte distribution width (RBC) [Ratio] 13.5 % Normal 11.0-15.0 [facility] Comment on above: Performed By: #### C BC ####[facility] Rclywrmpha[address] [place], [place] [address]Dr. Swathi Reis Hematocrit (Bld) [Volume fraction] 36.6 % Normal 36.0-48.0 [facility] Comment on above: Performed By: #### C BC ####[facility] [address] [place] [address]Dr. Swathi Reis Hemoglobin (Bld) [Mass/Vol] 11.3 g/dL Critically low 12.0-16.0 [facility] Comment on above: Performed By: #### C BC ####[facility] U[address]qmfgem[address] [place] [address]Dr. Swathi Reis IG # 0.03 10e3/ul Normal 0.00-0.03 [facility] Comment on above: Performed By: #### C BC ####[facility] Nmxpfdtijl32[address] [place] [address]Dr. Swathi Reis IG % 0.4 % Normal 0.0-0.5 [facility] Comment on above: Performed By: #### C BC ####[facility] Nghprekcxe1928 [place] [address]Dr. Swathi Reis LYMPH # 0.8 103/ul Critically low 1.2-3.8 [facility] Comment on above: Performed By: #### C BC ####[facility] Oqptmyaspj6721 [place] [address]Dr. Swathi Reis Lymphocytes/100 WBC (Bld) 10.3 % Critically low 20.5-60.0 [facility] Comment on above: Performed By: #### C BC ####[facility] Aoppopmoxk6440 [place] [address]Dr. Swathi Reis MANUAL DIFF REQ NO Normal [facility] Comment on above: Performed By: #### C BC ####[facility] Ubadnfiblz5713 [place] [address]Dr. Swathi Reis MCH (RBC) [Entitic mass] 29.1 pg Normal 26.7-34.0 [facility] Comment on above: Performed By: #### C BC ####[facility] Yokzojlsnv6986 [place] [address]Dr. Swathi Reis MCHC (RBC) [Mass/Vol] 30.9 g/dL Normal 29.9-35.2 [facility] Comment on above: Performed By: #### C BC ####[facility] Upryqczjkn7436 [place] [phone]. Swathi Reis MCV (RBC) [Entitic vol] 94.3 fL Normal 81.0-99.0 [facility] Comment on above: Performed By: #### C BC ####[facility] Lktbksybpi8402 [place] [phone]. Swathi Reis MONO # 0.7 103/ul Normal 0.3-0.8 [facility] Comment on above: Performed By: #### C BC ####[facility] Wsrenrpelj7264 [place] [phone]. Swathi Reis Monocytes/100 WBC (Bld) 10.2 % Normal 1.7-12.0 [facility] Comment on above: Performed By: #### C BC ####[facility] Mqefzfpfrg[address] [place], [place] [address]Dr. Swathi Reis NEUT # 5.5 103/ul Normal 1.4-6.5 [facility] Comment on above: Performed By: #### C BC ####[facility] Ripneoldrx8152 [place] [phone]. Swathi Chato Neutrophils/100 WBC (Bld) 76.3 % Critically high 43.0-75.0 [facility] Comment on above: Performed By: #### C BC ####[facility] N[address] [place], [place] [phone]. Swathi Chato Platelet mean volume (Bld) [Entitic vol] 10.6 fL Normal 9.5-13.5 [facility] Comment on above: Performed By: #### C BC ####[facility] Esgaizskcc[address] [place], [place] [address]Dr. Swathi Reis PLT 212 103/ul Normal 150-450 [facility] Comment on above: Performed By: #### C BC ####[facility] Shrwfbgoqu1048 [place] [phone]. Swtahi Reis RBC 3.88 106/ul Critically low 4.20-5.40 [facility] Comment on above: Performed By: #### C BC ####[facility] Vpkrwzuiup3442 [place] [address]Dr. Swathi Reis WBC 7.3 103/ul Normal 4.0-11.0 [facility] Comment on above: Performed By: #### C BC ####[facility] Bxjctkuubk7252 [place] [phone]. Swathi Chato POINT OF CARE GLUCOSEon 06-23 Glucose [Mass/Vol] 171 mg/dL Critically high [address] [place] [address] Comment on above: Performed By: #### P OCGLUC ####[facility] Xieqevinwq6215 [place] [address]Dr. Swathi Reis Glucose [Mass/Vol] 162 mg/dL Critically high [address] [place] [address] Comment on above: Performed By: #### P OCGLUC ####[facility] Lghloomvwc5176 [place] [address]Dr. Swathi Cahto Glucose [Mass/Vol] 176 mg/dL Critically high [address] [place] [address] Comment on above: Performed By: #### P OCGLUC ####[facility] Ikrmxumkns0609 [place] [address]Dr. Swathi Reis Glucose [Mass/Vol] 140 mg/dL Critically high [address] [place] [address] Comment on above: Performed By: #### P OCGLUC ####[facility] Aqeczgzvof1264 [place] [address]Dr. Swathi Reis Glucose [Mass/Vol] 37 mg/dL Critically low 74-106 [facility] Comment on above: Result Comment: Will Repeat Test Performed By: #### P OCGLUC ####[facility] Rjpbghbwes406[address] [place], [place] [address]Dr. Swathi Reis PROF 14(COMP METB)on 022 Albumin [Mass/Vol] 2.5 g/dL Critically low 3.4-5.0 [facility] Comment on above: Performed By: #### B INTERNAL CONTROLS SPECIALIST, CMP ####[facility] Qoqufqoapl754[address] [place], [place] [address]Dr. Swathi Reis Albumin/Globulin [Mass ratio] 0.7 {ratio} Normal [facility] Comment on above: Performed By: #### B INTERNAL CONTROLS SPECIALIST, CMP ####[facility] Lallxswjnp8119 [place] [address]Dr. Swathi Chato ALP [Catalytic activity/Vol] 71 U/L Normal 46-116 [facility] Comment on above: Performed By: #### B INTERNAL CONTROLS SPECIALIST, CMP ####[facility] Ehdtpvlgpy799[address] [place], [place] [address]Dr. Swathi Reis ALT [Catalytic activity/Vol] 12 U/L Critically low 14-59 [facility] Comment on above: Performed By: #### B INTERNAL CONTROLS SPECIALIST, CMP ####[facility] Hdvnpylvvr239[address] [place], [place] [address]Dr. Swathi Reis Anion gap [Moles/Vol] 10.1 mmol/L Normal [facility] Comment on above: Performed By: #### B INTERNAL CONTROLS SPECIALIST, CMP ####[facility] Iqhtgvurxq[address] [place], [place] [address]Dr. Swathi Reis AST [Catalytic activity/Vol] 11 U/L Critically low 15-37 [facility] Comment on above: Performed By: #### B INTERNAL CONTROLS SPECIALIST, CMP ####[facility] Ifgpliiohv40[address] [place], [place] [address]Dr. Swathi Reis Bilirubin [Mass/Vol] 0.4 mg/dL Normal 0.2-1.0 [facility] Comment on above: Performed By: #### B INTERNAL CONTROLS SPECIALIST, CMP ####[facility] Skmgiaypcg[address] [place], [place] [id number]. Swathi Reis Calcium [Mass/Vol] 9.0 mg/dL Normal 8.5-10.1 [facility] Comment on above: Performed By: #### B INTERNAL CONTROLS SPECIALIST, CMP ####[facility] Xtkdnzdtou[address] [place], [place] [address]Dr. Swathi Reis Chloride [Moles/Vol] 107 mmol/L Normal 98-107 [facility] Comment on above: Performed By: #### B INTERNAL CONTROLS SPECIALIST, CMP ####[facility] Csajhytpsq9[address] [place], [place] [address]Dr. Swathi Reis CO2 [Moles/Vol] 28.9 mmol/L Normal 21.0-32.0 [facility] Comment on above: Performed By: #### B INTERNAL CONTROLS SPECIALIST, CMP ####[facility] Xddtsuuujz349[address] [place], [place] [address]Dr. Swathi Reis Creatinine [Mass/Vol] 2.01 mg/dL Critically high 0.55-1.02 [facility] Comment on above: Performed By: #### B INTERNAL CONTROLS SPECIALIST, CMP ####[facility] Aqtilsmvkb[address] [place], [place] [address]Dr. Swathi Reis EGFR-AF CROATIAN 29 mL/min/1.73m2 Critically low >=60 [facility] Comment on above: Performed By: #### B INTERNAL CONTROLS SPECIALIST, CMP ####[facility] Pnywkeucpk[address] [place], [place] [address]Dr. Swathi Reis EGFR-NON AF CROATIAN 24 mL/min/1.73m2 Critically low >=60 [facility] Comment on above: Performed By: #### B INTERNAL CONTROLS SPECIALIST, CMP ####[facility] Domjwyfukt125[address] [place], [place] [address]Dr. Swathi Chato Globulin (S) [Mass/Vol] 3.6 g/dL Normal [facility] Comment on above: Performed By: #### B INTERNAL CONTROLS SPECIALIST, CMP ####[facility] Gmehprxxjh[address] [place], [place] [address]Dr. Swathi Reis Glucose [Mass/Vol] 123 mg/dL Critically high 74-106 [facility] Comment on above: Performed By: #### B INTERNAL CONTROLS SPECIALIST, CMP ####[facility] Gebacenttg46[address] [place], [place] [address]Dr. Swathi Reis Potassium [Moles/Vol] 4.0 mmol/L Normal 3.5-5.1 [facility] Comment on above: Performed By: #### B INTERNAL CONTROLS SPECIALIST, CMP ####[facility] Cpjmankpay285[address] [place], [place] [address]Dr. Swathi Reis Protein [Mass/Vol] 6.1 g/dL Critically low 6.4-8.2 [facility] Comment on above: Performed By: #### B INTERNAL CONTROLS SPECIALIST, CMP ####[facility] Onyemgwtsl978[address] [place], [place] [address]Dr. Swathi Reis Sodium [Moles/Vol] 142 mmol/L Normal 136-145 [facility] Comment on above: Performed By: #### B INTERNAL CONTROLS SPECIALIST, CMP ####[facility] Vgaadkitnz113[address] [place], [place] [address]Dr. Swathi Reis Urea nitrogen [Mass/Vol] 27.0 mg/dL Critically high 7.0-18.0 [facility] Comment on above: Performed By: #### B INTERNAL CONTROLS SPECIALIST, CMP ####[facility] Nnnacjrzfl15[address] [place], [place] [address]Dr. Swathi Chato Urea nitrogen/Creatinine [Mass ratio] 13.4 mg/mg Normal [facility] Comment on above: Performed By: #### B INTERNAL CONTROLS SPECIALIST, CMP ####[facility] Axbifugiyv378[address] [place], [place] [address]Dr. Swathi Chato BNPon 07-09-2022 Natriuretic peptide B (Bld) [Mass/Vol] 5933.0 pg/mL Critically high <=1,800.0 [facility] Comment on above: Performed By: #### B INTERNAL CONTROLS SPECIALIST, CMP ####[facility] Fzhvtdylxv24[address] [place], [place] [address]Dr. Swathi Chato CBC AUTO DIFFon 07-09-2022 BASO # 0.1 103/ul Normal 0.0-0.1 [facility] Comment on above: Performed By: #### C BC ####[facility] Mlmzjvkfjq336[address] [place], [place] [address]Dr. Swathi Chato Basophils/100 WBC (Bld) 0.5 % Normal 0.2-2.0 [facility] Comment on above: Performed By: #### C BC ####[facility] Ixlwudwtki[address] [place], [place] [address]Dr. Swathi Reis EO # 0.3 103/ul Normal 0.0-0.7 [facility] Comment on above: Performed By: #### C BC ####[facility] Dpuoveharv208[address] [place], [place] [address]Dr. Swathi Reis Eosinophils/100 WBC (Bld) 2.9 % Normal 0.9-7.0 [facility] Comment on above: Performed By: #### C BC ####[facility] Qnuziutmcn606[address] [place], [place] [address]Dr. Swathi Reis Erythrocyte distribution width (RBC) [Ratio] 13.4 % Normal 11.0-15.0 [facility] Comment on above: Performed By: #### C BC ####[facility] Puugkbvedc[address] [place], [place] [address]DrOtto Reis Hematocrit (Bld) [Volume fraction] 28.8 % Critically low 36.0-48.0 [facility] Comment on above: Performed By: #### C BC ####[facility] Iocmmpvdft23[address] [place], [place] [address]DrOtto Reis Hemoglobin (Bld) [Mass/Vol] 9.2 g/dL Critically low 12.0-16.0 [facility] Comment on above: Performed By: #### C BC ####[facility] Tzsopcebju124[address] [place], [place] [address]DrOtto Reis IG # 0.04 10e3/ul Critically high 0.00-0.03 [facility] Comment on above: Performed By: #### C BC ####[facility] Hziaujagry39[address] [place], [place] [address]DrOtto Reis IG % 0.4 % Normal 0.0-0.5 [facility] Comment on above: Performed By: #### C BC ####[facility] Ekcvmnyoil104[address] [place], [place] [address]DrOtto Reis LYMPH # 1.2 103/ul Normal 1.2-3.8 [facility] Comment on above: Performed By: #### C BC ####[facility] Cmblpdpztl[address] [place], [place] [address]DrOtto Reis Lymphocytes/100 WBC (Bld) 10.9 % Critically low 20.5-60.0 [facility] Comment on above: Performed By: #### C BC ####[facility] Sfhnfpbmjo[address] [place], [place] [address]DrOtto Reis MANUAL DIFF REQ NO Normal [facility] Comment on above: Performed By: #### C BC ####[facility] Dkqywczedd7663 [place] [phone] Reis MCH (RBC) [Entitic mass] 30.0 pg Normal 26.7-34.0 [facility] Comment on above: Performed By: #### C BC ####[facility] Iiicxpgweb8264 [place] [address]DrOtto Reis MCHC (RBC) [Mass/Vol] 31.9 g/dL Normal 29.9-35.2 [facility] Comment on above: Performed By: #### C BC ####[facility] Njtytzzrhh[address] [place], [place] [address]DrOtto Reis MCV (RBC) [Entitic vol] 93.8 fL Normal 81.0-99.0 [facility] Comment on above: Performed By: #### C BC ####[facility] Cxjvwklbqw254[address] [place], [place] [address]DrOtto Reis MONO # 1.0 103/ul Critically high 0.3-0.8 [facility] Comment on above: Performed By: #### C BC ####[facility] Gvdrfhcild[address] [place], [place] [address]DrOtto Reis Monocytes/100 WBC (Bld) 9.6 % Normal 1.7-12.0 [facility] Comment on above: Performed By: #### C BC ####[facility] Bqeqwpcqjk[address] [place], [place] [address]DrOtto Reis NEUT # 8.0 103/ul Critically high 1.4-6.5 [facility] Comment on above: Performed By: #### C BC ####[facility] Qtdkuyczxm[address] [place], [place] [address]DrOtto Reis Neutrophils/100 WBC (Bld) 75.7 % Critically high 43.0-75.0 [facility] Comment on above: Performed By: #### C BC ####[facility] Xpzbjohoan[address] [place], [place] [address]DrOtto Reis Platelet mean volume (Bld) [Entitic vol] 10.6 fL Normal 9.5-13.5 [facility] Comment on above: Performed By: #### C BC ####[facility] Vmpcbraoub8513 [place] [phone]. Swathi Reis PLT 307 103/ul Normal 150-450 [facility] Comment on above: Performed By: #### C BC ####[facility] Krcrrvkctr6782 [place] [address]Dr. Swathi Reis RBC 3.07 106/ul Critically low 4.20-5.40 [facility] Comment on above: Performed By: #### C BC ####[facility] Dlihomeycb0348 [place] [address]Dr. Swathi Reis WBC 10.6 103/ul Normal 4.0-11.0 [facility] Comment on above: Performed By: #### C BC ####[facility] Uuzadfbsgi66[address] [place] [address]DrOtto Swathi Reis POINT OF CARE GLUCOSEon 06-23 Glucose [Mass/Vol] 168 mg/dL Critically high 74-106 [facility] Comment on above: Performed By: #### P OCGLUC ####[facility] Psvwozezzq0119 [place] [address]Dr. Swathi Reis Glucose [Mass/Vol] 136 mg/dL Critically high 74-106 [facility] Comment on above: Performed By: #### P OCGLUC ####[facility] Ymqoqnsmeq4541 [place] [address]Dr. Swathi Reis Glucose [Mass/Vol] 203 mg/dL Critically high 74-106 [facility] Comment on above: Performed By: #### P OCGLUC ####[facility] Rijtakamxx1398 [place] [address]DrOtto Swathi Chato PROF 14(COMP METB)on 022 Albumin [Mass/Vol] 2.6 g/dL Critically low 3.4-5.0 [facility] Comment on above: Performed By: #### B INTERNAL CONTROLS SPECIALIST, CMP ####[facility] Inplequxpp7109 [place], [place] [address]Wz. Swathi Reis Albumin/Globulin [Mass ratio] 0.7 {ratio} Normal [facility] Comment on above: Performed By: #### B INTERNAL CONTROLS SPECIALIST, CMP ####[facility] Kojffmtrow0743 [place], [place] [address]Ec. Swathi Reis ALP [Catalytic activity/Vol] 73 U/L Normal 46-116 [facility] Comment on above: Performed By: #### B INTERNAL CONTROLS SPECIALIST, CMP ####[facility] Fzjrdzqfwn1829 [place] [phone]. Swathi Reis ALT [Catalytic activity/Vol] 12 U/L Critically low 14-59 [facility] Comment on above: Performed By: #### B INTERNAL CONTROLS SPECIALIST, CMP ####[facility] Nzzkyfhkft1278 [place] [phone]. Swathi Reis Anion gap [Moles/Vol] 12.4 mmol/L Normal [facility] Comment on above: Performed By: #### B INTERNAL CONTROLS SPECIALIST, CMP ####[facility] Pktbkvzgwa8655 [place] [phone]. Swathi Reis AST [Catalytic activity/Vol] 10 U/L Critically low 15-37 [facility] Comment on above: Performed By: #### B INTERNAL CONTROLS SPECIALIST, CMP ####[facility] Pzmcfprchj0274 [place] [phone]. Swathi Reis Bilirubin [Mass/Vol] 0.5 mg/dL Normal 0.2-1.0 [facility] Comment on above: Performed By: #### B INTERNAL CONTROLS SPECIALIST, CMP ####[facility] Vbogiqlqxi4371 [place] [phone]. Swathi Reis Calcium [Mass/Vol] 8.7 mg/dL Normal 8.5-10.1 [facility] Comment on above: Performed By: #### B INTERNAL CONTROLS SPECIALIST, CMP ####[facility] Hxcyifdglf1575 [place] [phone]. Swathi Chato Chloride [Moles/Vol] 105 mmol/L Normal 98-107 [facility] Comment on above: Performed By: #### B INTERNAL CONTROLS SPECIALIST, CMP ####[facility] Qosobmjpiu0476 [place] [phone]. Swathi Reis CO2 [Moles/Vol] 27.3 mmol/L Normal 21.0-32.0 [facility] Comment on above: Performed By: #### B INTERNAL CONTROLS SPECIALIST, CMP ####[facility] Gailhoyoow[address] [place], [place] [address]Dr. Swathi Reis Creatinine [Mass/Vol] 2.02 mg/dL Critically high 0.55-1.02 [facility] Comment on above: Performed By: #### B INTERNAL CONTROLS SPECIALIST, CMP ####[facility] Hjjxawmgue254[address] [place], [place] [address]Dr. Inessatracy Chato EGFR-AF CROATIAN 29 mL/min/1.73m2 Critically low >=60 [facility] Comment on above: Performed By: #### B INTERNAL CONTROLS SPECIALIST, CMP ####[facility] Yyqzdjsbjd[address] [place], [place] [address]Dr. Swathi Reis EGFR-NON AF CROATIAN 24 mL/min/1.73m2 Critically low >=60 [facility] Comment on above: Performed By: #### B INTERNAL CONTROLS SPECIALIST, CMP ####[facility] Ydtciaqlcc627[address] [place], [place] [address]Dr. Swathi Reis Globulin (S) [Mass/Vol] 3.6 g/dL Normal [facility] Comment on above: Performed By: #### B INTERNAL CONTROLS SPECIALIST, CMP ####[facility] Fepapgkwrn9[address] [place], [place] [address]Dr. Swathi Reis Glucose [Mass/Vol] 134 mg/dL Critically high 74-106 [facility] Comment on above: Performed By: #### B INTERNAL CONTROLS SPECIALIST, CMP ####[facility] Ylylfuurbw222[address] [place], [place] [address]Dr. Swathi Reis Potassium [Moles/Vol] 3.7 mmol/L Normal 3.5-5.1 [facility] Comment on above: Performed By: #### B INTERNAL CONTROLS SPECIALIST, CMP ####[facility] Kwcdgecdny8801[address] [place], [place] [address]Dr. Swathi Reis Protein [Mass/Vol] 6.2 g/dL Critically low 6.4-8.2 [facility] Comment on above: Performed By: #### B INTERNAL CONTROLS SPECIALIST, CMP ####[facility] Cokjylfker[address] [place], [place] [address]Dr. Swathi Reis Sodium [Moles/Vol] 141 mmol/L Normal 136-145 [facility] Comment on above: Performed By: #### B INTERNAL CONTROLS SPECIALIST, CMP ####[facility] Xhyaishxlq3914[address] [place], [place] [address]Dr. Swathi Chato Urea nitrogen [Mass/Vol] 29.0 mg/dL Critically high 7.0-18.0 [facility] Comment on above: Performed By: #### B INTERNAL CONTROLS SPECIALIST, CMP ####[facility] Rwrnswryjb962[address] [place], [place] [address]Dr. Ienssatracy Reis Urea nitrogen/Creatinine [Mass ratio] 14.4 mg/mg Normal [facility] Comment on above: Performed By: #### B INTERNAL CONTROLS SPECIALIST, CMP ####[facility] Timhxpxdqp87[address] [place], [place] [address]Dr. Swathi Chato XR CHEST 2 Von 07-09-2022 XR CHEST 2 V Normal [facility] BNPon 07-08-2022 Natriuretic peptide B (Bld) [Mass/Vol] 6044.0 pg/mL Critically high <=1,800.0 [facility] Comment on above: Performed By: #### B INTERNAL CONTROLS SPECIALIST, CMP ####[facility] Zslrtvgnwf105[address] [place], [place] [address]Dr. Swathi Chato CBC AUTO DIFFon 07-08-2022 BASO # 0.1 103/ul Normal 0.0-0.1 [facility] Comment on above: Performed By: #### C BC ####[facility] Sgmwcstgmq853[address] [place], [place] [address]Dr. Swathi Reis Basophils/100 WBC (Bld) 0.7 % Normal 0.2-2.0 [facility] Comment on above: Performed By: #### C BC ####[facility] Ymjoykopvm035[address] [place], [place] [address]Dr. Swathi Reis EO # 0.3 103/ul Normal 0.0-0.7 [facility] Comment on above: Performed By: #### C BC ####[facility] Libwbpqrzg4[address] [place] [id number]. Swathi Reis Eosinophils/100 WBC (Bld) 2.9 % Normal 0.9-7.0 [facility] Comment on above: Performed By: #### C BC ####[facility] Btyftezgxx[address] [place] [address]Dr. Swathi Reis Erythrocyte distribution width (RBC) [Ratio] 13.5 % Normal 11.0-15.0 [facility] Comment on above: Performed By: #### C BC ####[facility] Iovnmgxins564[address] [place], [place] [address]Dr. Swathi Reis Hematocrit (Bld) [Volume fraction] 29.9 % Critically low 36.0-48.0 [facility] Comment on above: Performed By: #### C BC ####[facility] Ydrgcrevss4312[address] [place], [place] [address]Dr. Swathi Reis Hemoglobin (Bld) [Mass/Vol] 9.5 g/dL Critically low 12.0-16.0 [facility] Comment on above: Performed By: #### C BC ####[facility] Xyjacfoqfs2837[address] [place], [place] [address]Dr. Swathi Reis IG # 0.03 10e3/ul Normal 0.00-0.03 [facility] Comment on above: Performed By: #### C BC ####[facility] Riwdmxdske1716[address] [place], [place] [address]Dr. Swathi Reis IG % 0.3 % Normal 0.0-0.5 [facility] Comment on above: Performed By: #### C BC ####[facility] Dsbofljgpa450[address] [place], [place] [address]Dr. Swathi Reis LYMPH # 0.9 103/ul Critically low 1.2-3.8 [facility] Comment on above: Performed By: #### C BC ####[facility] Wywylbqwwm7[address] [place], [place] [address]Dr. Swathi Reis Lymphocytes/100 WBC (Bld) 8.4 % Critically low 20.5-60.0 [facility] Comment on above: Performed By: #### C BC ####[facility] Medtkmyvkg7[address] [place] [phone]. Swathi Reis MANUAL DIFF REQ NO Normal [facility] Comment on above: Performed By: #### C BC ####[facility] Fpsbyqeaso9656 [place] [phone]. Swathi Reis MCH (RBC) [Entitic mass] 30.1 pg Normal 26.7-34.0 [facility] Comment on above: Performed By: #### C BC ####[facility] Zqboijasge0947 [place] [phone]. Swathi Reis MCHC (RBC) [Mass/Vol] 31.8 g/dL Normal 29.9-35.2 [facility] Comment on above: Performed By: #### C BC ####[facility] Uthqdlujee920[address] [place], [place] [address]Dr. Swathi Reis MCV (RBC) [Entitic vol] 94.6 fL Normal 81.0-99.0 [facility] Comment on above: Performed By: #### C BC ####[facility] Ljeeocwyfb[address] [place], [place] [id number]. Swathi Reis MONO # 1.0 103/ul Critically high 0.3-0.8 [facility] Comment on above: Performed By: #### C BC ####[facility] Qgrnflcwbj955[address] [place], [place] [address]Dr. Swathi Reis Monocytes/100 WBC (Bld) 9.5 % Normal 1.7-12.0 [facility] Comment on above: Performed By: #### C BC ####[facility] Eaukltlqdc[address] [place], [place] [id number]. Swathi Reis NEUT # 8.3 103/ul Critically high 1.4-6.5 [facility] Comment on above: Performed By: #### C BC ####[facility] Sppggpexzw[address] [place], [place] [address]Dr. Swathi Reis Neutrophils/100 WBC (Bld) 78.2 % Critically high 43.0-75.0 [facility] Comment on above: Performed By: #### C BC ####[facility] Oytiepgkxy4356 [place] [phone]. Swathi Reis Platelet mean volume (Bld) [Entitic vol] 10.7 fL Normal 9.5-13.5 [facility] Comment on above: Performed By: #### C BC ####[facility] Js[address]iz[address]wyge[address] [place] [phone]. Swathi Reis PLT 273 103/ul Normal 150-450 [facility] Comment on above: Performed By: #### C BC ####[facility] Qbvqeviose3787 [place] [phone]. Swathi Reis RBC 3.16 106/ul Critically low 4.20-5.40 [facility] Comment on above: Performed By: #### C BC ####[facility] Vajlosixxy9059 [place] [phone]. Swathi Reis WBC 10.6 103/ul Normal 4.0-11.0 [facility] Comment on above: Performed By: #### C BC ####[facility] Elceevtrdh6057 [place] [phone]. Swathi Reis POINT OF CARE GLUCOSEon 06-23 Glucose [Mass/Vol] 243 mg/dL Critically high 74-106 [facility] Comment on above: Performed By: #### P OCGLUC ####[facility] Krathpogwv25[address] [place] [address]Dr. Swathi Reis Glucose [Mass/Vol] 161 mg/dL Critically high 74-106 [facility] Comment on above: Performed By: #### P OCGLUC ####[facility] Vdffsnsnax9989 [place] [phone]. Swathi Reis Glucose [Mass/Vol] 186 mg/dL Critically high 74-106 [facility] Comment on above: Performed By: #### P OCGLUC ####[facility] Nxlptptqcc2474 [place] [phone]. Swathi Reis Glucose [Mass/Vol] 168 mg/dL Critically high 74-106 [facility] Comment on above: Performed By: #### P OCGLUC ####[facility] Mxrrxykjdw4837 [place] [address]Dr. Swathi Reis PROF 14(COMP METB)on 022 Albumin [Mass/Vol] 2.5 g/dL Critically low 3.4-5.0 Th e [facility] Comment on above: Performed By: #### B INTERNAL CONTROLS SPECIALIST, CMP ####[facility] Clajwevnri57[address] [place] [address]Dr. Swathi Reis Albumin/Globulin [Mass ratio] 0.7 {ratio} Normal [facility] Comment on above: Performed By: #### B INTERNAL CONTROLS SPECIALIST, CMP ####[facility] Jrlsapuobx640[address] [place], [place] [address]Dr. Swathi Reis ALP [Catalytic activity/Vol] 77 U/L Normal 46-116 [facility] Comment on above: Performed By: #### B INTERNAL CONTROLS SPECIALIST, CMP ####[facility] Crnfeuheqs834[address] [place], [place] [address]Dr. Swathi Reis ALT [Catalytic activity/Vol] 16 U/L Normal 14-59 [facility] Comment on above: Performed By: #### B INTERNAL CONTROLS SPECIALIST, CMP ####[facility] Vpraffrbis[address] [place], [place] [address]Dr. Swathi Reis Anion gap [Moles/Vol] 11.9 mmol/L Normal [facility] Comment on above: Performed By: #### B INTERNAL CONTROLS SPECIALIST, CMP ####[facility] Vckdhdakrw3327 [place] [address]Dr. Swathi Reis AST [Catalytic activity/Vol] 13 U/L Critically low 15-37 [facility] Comment on above: Performed By: #### B INTERNAL CONTROLS SPECIALIST, CMP ####[facility] Kwminfmjvw4496 [place] [address]Dr. Swathi Reis Bilirubin [Mass/Vol] 0.6 mg/dL Normal 0.2-1.0 [facility] Comment on above: Performed By: #### B INTERNAL CONTROLS SPECIALIST, CMP ####[facility] Zxjtslpihn2040 [place] [address]Dr. Swathi Reis Calcium [Mass/Vol] 8.7 mg/dL Normal 8.5-10.1 [facility] Comment on above: Performed By: #### B INTERNAL CONTROLS SPECIALIST, CMP ####[facility] Nipcnqgdrb07[address] [place], [place] [address]Dr. Inessatracy Reis Chloride [Moles/Vol] 105 mmol/L Normal 98-107 [facility] Comment on above: Performed By: #### B INTERNAL CONTROLS SPECIALIST, CMP ####[facility] Lkkscdheho0869[address] [place], [place] [address]Dr. Inessatracy Chato CO2 [Moles/Vol] 26.6 mmol/L Normal 21.0-32.0 [facility] Comment on above: Performed By: #### B INTERNAL CONTROLS SPECIALIST, CMP ####[facility] Alahpopwaw6601[address] [place], [place] [address]Dr. Swathi Reis Creatinine [Mass/Vol] 1.54 mg/dL Critically high 0.55-1.02 [facility] Comment on above: Performed By: #### B INTERNAL CONTROLS SPECIALIST, CMP ####[facility] Lzxdrqwkqo[address] [place], [place] [address]Dr. Inessatracy Chato EGFR-AF CROATIAN 40 mL/min/1.73m2 Critically low >=60 [facility] Comment on above: Performed By: #### B INTERNAL CONTROLS SPECIALIST, CMP ####[facility] Jrlkbpzwav09[address] [place], [place] [address]Dr. Swathi Reis EGFR-NON AF CROATIAN 33 mL/min/1.73m2 Critically low >=60 [facility] Comment on above: Performed By: #### B INTERNAL CONTROLS SPECIALIST, CMP ####[facility] Cedvvhgmxr[address] [place], [place] [address]Dr. Swathi Reis Globulin (S) [Mass/Vol] 3.8 g/dL Normal [facility] Comment on above: Performed By: #### B INTERNAL CONTROLS SPECIALIST, CMP ####[facility] Hzpoyrxjii378[address] [place], [place] [address]Dr. Swathi Reis Glucose [Mass/Vol] 153 mg/dL Critically high 74-106 [facility] Comment on above: Performed By: #### B INTERNAL CONTROLS SPECIALIST, CMP ####[facility] Nagwkrmqiu2599[address] [place], [place] [address]Dr. Swathi Reis Potassium [Moles/Vol] 3.5 mmol/L Normal 3.5-5.1 [facility] Comment on above: Performed By: #### B INTERNAL CONTROLS SPECIALIST, CMP ####[facility] Rdsjotyocn4965 [place] [address]Dr. Swathi Reis Protein [Mass/Vol] 6.3 g/dL Critically low 6.4-8.2 [facility] Comment on above: Performed By: #### B INTERNAL CONTROLS SPECIALIST, CMP ####[facility] Hrzmykkjva6[address] [place], [place] [address]Dr. Swathi Reis Sodium [Moles/Vol] 140 mmol/L Normal 136-145 [facility] Comment on above: Performed By: #### B INTERNAL CONTROLS SPECIALIST, CMP ####[facility] Wcdbvasbgt954[address] [place], [place] [address]Dr. Swathi Reis Urea nitrogen [Mass/Vol] 25.0 mg/dL Critically high 7.0-18.0 [facility] Comment on above: Performed By: #### B INTERNAL CONTROLS SPECIALIST, CMP ####[facility] Bnbvzuyocl228[address] [place], [place] [address]Dr. Swathi Reis Urea nitrogen/Creatinine [Mass ratio] 16.2 mg/mg Normal [facility] Comment on above: Performed By: #### B INTERNAL CONTROLS SPECIALIST, CMP ####[facility] Eboyomfrol[address] [place], [place] [address]Dr. Swathi Chato BNPon 07-07-2022 Natriuretic peptide B (Bld) [Mass/Vol] 6413.0 pg/mL Critically high <=1,800.0 [facility] Comment on above: Performed By: #### B INTERNAL CONTROLS SPECIALIST, CMP ####[facility] Qoacsyrtgi[address] [place], [place] [address]Dr. Inessatracy Chato CBC AUTO DIFFon 07-07-2022 BASO # 0.1 103/ul Normal 0.0-0.1 [facility] Comment on above: Performed By: #### C BC ####[facility] Cfsquadlbt678[address] [place], [place] [address]Dr. Swathi Reis Basophils/100 WBC (Bld) 0.4 % Normal 0.2-2.0 [facility] Comment on above: Performed By: #### C BC ####[facility] Yahfbglwgm3817 [place] [address]Dr. Swathi Reis EO # 0.3 103/ul Normal 0.0-0.7 [facility] Comment on above: Performed By: #### C BC ####[facility] Rehlxprvwv195[address] [place], [place] [address]Dr. Swathi Reis Eosinophils/100 WBC (Bld) 2.6 % Normal 0.9-7.0 [facility] Comment on above: Performed By: #### C BC ####[facility] Wavzezcqkb[address] [place], [place] [address]Dr. Swathi Reis Erythrocyte distribution width (RBC) [Ratio] 13.7 % Normal 11.0-15.0 [facility] Comment on above: Performed By: #### C BC ####[facility] Elzsjnibce229[address] [place], [place] [address]Dr. Swathi Reis Hematocrit (Bld) [Volume fraction] 28.9 % Critically low 36.0-48.0 [facility] Comment on above: Performed By: #### C BC ####[facility] Flhhysfmnm418[address] [place], [place] [address]Dr. Swathi Reis Hemoglobin (Bld) [Mass/Vol] 9.3 g/dL Critically low 12.0-16.0 [facility] Comment on above: Performed By: #### C BC ####[facility] Lewadvooei[address] [place], [place] [address]Dr. Swathi Reis IG # 0.04 10e3/ul Critically high 0.00-0.03 [facility] Comment on above: Performed By: #### C BC ####[facility] Huvdjkilss[address] [place], [place] [address]Dr. Swathi Reis IG % 0.4 % Normal 0.0-0.5 [facility] Comment on above: Performed By: #### C BC ####[facility] Xfkmoskpbr[address] [place], [place] [address]DrOtto Reis LYMPH # 1.0 103/ul Critically low 1.2-3.8 [facility] Comment on above: Performed By: #### C BC ####[facility] Pjfqzxvtdy3664 [place] [address]Dr. Swathi Reis Lymphocytes/100 WBC (Bld) 8.6 % Critically low 20.5-60.0 [facility] Comment on above: Performed By: #### C BC ####[facility] Itpabshacw74[address] [place] [address]DrOtto Reis MANUAL DIFF REQ NO Normal [facility] Comment on above: Performed By: #### C BC ####[facility] Zptfzmkzny9307 [place] [address]Dr. Swathi Reis MCH (RBC) [Entitic mass] 30.0 pg Normal 26.7-34.0 [facility] Comment on above: Performed By: #### C BC ####[facility] Ylijpdsuau017[address] [place], [place] [address]Dr. Swathi Reis MCHC (RBC) [Mass/Vol] 32.2 g/dL Normal 29.9-35.2 [facility] Comment on above: Performed By: #### C BC ####[facility] Xkegwiliys430[address] [place], [place] [address]DrOtto Reis MCV (RBC) [Entitic vol] 93.2 fL Normal 81.0-99.0 [facility] Comment on above: Performed By: #### C BC ####[facility] Qaccrvzdrm[address] [place], [place] [address]Dr. Swathi Reis MONO # 1.0 103/ul Critically high 0.3-0.8 [facility] Comment on above: Performed By: #### C BC ####[facility] Pmqosbrmuj464[address] [place], [place] [address]DrOtto Reis Monocytes/100 WBC (Bld) 9.0 % Normal 1.7-12.0 [facility] Comment on above: Performed By: #### C BC ####[facility] Nvxhgntkmd48[address] [place], [place] [address]Dr. Swathi Reis NEUT # 9.0 103/ul Critically high 1.4-6.5 [facility] Comment on above: Performed By: #### C BC ####[facility] Fozpnksgxq99[address] [place] [address]Dr. Swathi Reis Neutrophils/100 WBC (Bld) 79.0 % Critically high 43.0-75.0 [facility] Comment on above: Performed By: #### C BC ####[facility] Nfhmspualh2116 [place] [address]Dr. Swathi Reis Platelet mean volume (Bld) [Entitic vol] 10.7 fL Normal 9.5-13.5 [facility] Comment on above: Performed By: #### C BC ####[facility] Wvxtuhzrup[address] [place], [place] [address]Dr. Swathi Reis PLT 264 103/ul Normal 150-450 [facility] Comment on above: Performed By: #### C BC ####[facility] Ccbqaqxaxt[address] [place], [place] [address]Dr. Swathi Reis RBC 3.10 106/ul Critically low 4.20-5.40 [facility] Comment on above: Performed By: #### C BC ####[facility] Xtbwpeqtzh506[address] [place], [place] [address]Dr. Swathi Reis WBC 11.4 103/ul Critically high 4.0-11.0 [facility] Comment on above: Performed By: #### C BC ####[facility] Fyddlkoazi12[address] [place], [place] [address]Dr. Inessatracy Chato POINT OF CARE GLUCOSEon 06-23 Glucose [Mass/Vol] 298 mg/dL Critically high 74-106 [facility] Comment on above: Performed By: #### P OCGLUC ####[facility] Nmctymmvpv[address] [place], [place] [address]Dr. Swathi Reis Glucose [Mass/Vol] 123 mg/dL Critically high 74-106 [facility] Comment on above: Performed By: #### P OCGLUC ####[facility] Zfrplkcjsj027[address] [place], [place] [address]Dr. Swathi Reis Glucose [Mass/Vol] 263 mg/dL Critically high 74-106 [facility] Comment on above: Performed By: #### P OCGLUC ####[facility] Jxuzasqudy37[address] [place] [address]Dr. Swathi Reis Glucose [Mass/Vol] 151 mg/dL Critically high 74-106 [facility] Comment on above: Performed By: #### P OCGLUC ####[facility] Xozsfmfugs8062 [place] [address]Dr. Swathi Reis PROF 14(COMP METB)on 022 Albumin [Mass/Vol] 2.5 g/dL Critically low 3.4-5.0 [facility] Comment on above: Performed By: #### B INTERNAL CONTROLS SPECIALIST, CMP ####[facility] Ypkczlyjtj613[address] [place], [place] [address]Dr. Swathi Reis Albumin/Globulin [Mass ratio] 0.7 {ratio} Normal [facility] Comment on above: Performed By: #### B INTERNAL CONTROLS SPECIALIST, CMP ####[facility] Zqvaeyfmoz72[address] [place], [place] [address]Dr. Swathi Reis ALP [Catalytic activity/Vol] 82 U/L Normal 46-116 [facility] Comment on above: Performed By: #### B INTERNAL CONTROLS SPECIALIST, CMP ####[facility] Tiaqtwwleq[address] [place], [place] [address]Dr. Swathi Reis ALT [Catalytic activity/Vol] 13 U/L Critically low 14-59 [facility] Comment on above: Performed By: #### B INTERNAL CONTROLS SPECIALIST, CMP ####[facility] Byicwypcwr[address] [place], [place] [address]Dr. Swathi Reis Anion gap [Moles/Vol] 11.5 mmol/L Normal [facility] Comment on above: Performed By: #### B INTERNAL CONTROLS SPECIALIST, CMP ####[facility] Aiedvbuzht779[address] [place], [place] [address]Dr. Swathi Reis AST [Catalytic activity/Vol] 12 U/L Critically low 15-37 [facility] Comment on above: Performed By: #### B INTERNAL CONTROLS SPECIALIST, CMP ####[facility] Eaeploymeu288[address] [place], [place] [address]Dr. Swathi Reis Bilirubin [Mass/Vol] 0.7 mg/dL Normal 0.2-1.0 [facility] Comment on above: Performed By: #### B INTERNAL CONTROLS SPECIALIST, CMP ####[facility] Qvktfwtetm5816 [place] [address]Dr. Swathi Reis Calcium [Mass/Vol] 8.6 mg/dL Normal 8.5-10.1 [facility] Comment on above: Performed By: #### B INTERNAL CONTROLS SPECIALIST, CMP ####[facility] Ktcpgkxvxj2784 [place] [address]Dr. Swathi Reis Chloride [Moles/Vol] 104 mmol/L Normal 98-107 [facility] Comment on above: Performed By: #### B INTERNAL CONTROLS SPECIALIST, CMP ####[facility] Zuqpxuehle[address] [place], [place] [address]Dr. Swathi Reis CO2 [Moles/Vol] 26.6 mmol/L Normal 21.0-32.0 [facility] Comment on above: Performed By: #### B INTERNAL CONTROLS SPECIALIST, CMP ####[facility] Yskzslbwms[address] [place], [place] [address]Dr. Swathi Reis Creatinine [Mass/Vol] 1.56 mg/dL Critically high 0.55-1.02 [facility] Comment on above: Performed By: #### B INTERNAL CONTROLS SPECIALIST, CMP ####[facility] Eapdtmsjhq5083 [place] [address]Dr. Swathi Reis EGFR-AF CROATIAN 39 mL/min/1.73m2 Critically low >=60 [facility] Comment on above: Performed By: #### B INTERNAL CONTROLS SPECIALIST, CMP ####[facility] Hmdymqtegw[address] [place] [address]Dr. Swathi Reis EGFR-NON AF CROATIAN 32 mL/min/1.73m2 Critically low >=60 [facility] Comment on above: Performed By: #### B INTERNAL CONTROLS SPECIALIST, CMP ####[facility] Qsnxzqehqx0067 [place] [address]Dr. Swathi Reis Globulin (S) [Mass/Vol] 3.7 g/dL Normal [facility] Comment on above: Performed By: #### B INTERNAL CONTROLS SPECIALIST, CMP ####[facility] Xzcvcxslhz70[address] [place] [address]Dr. Swathi Reis Glucose [Mass/Vol] 149 mg/dL Critically high 74-106 [facility] Comment on above: Performed By: #### B INTERNAL CONTROLS SPECIALIST, CMP ####[facility] Qxcvkwszbl2825 [place] [address]Dr. Inessatracy Reis Potassium [Moles/Vol] 3.1 mmol/L Critically low 3.5-5.1 [facility] Comment on above: Performed By: #### B INTERNAL CONTROLS SPECIALIST, CMP ####[facility] Cjksxszkvr[address] [place], [place] [address]Dr. Inessatracy Reis Protein [Mass/Vol] 6.2 g/dL Critically low 6.4-8.2 [facility] Comment on above: Performed By: #### B INTERNAL CONTROLS SPECIALIST, CMP ####[facility] Yhcoyumdnf[address] [place], [place] [address]Dr. Swathi Reis Sodium [Moles/Vol] 139 mmol/L Normal 136-145 [facility] Comment on above: Performed By: #### B INTERNAL CONTROLS SPECIALIST, CMP ####[facility] Qbjosgjgmr128[address] [place], [place] [address]Dr. Swathi Reis Urea nitrogen [Mass/Vol] 19.0 mg/dL Critically high 7.0-18.0 [facility] Comment on above: Performed By: #### B INTERNAL CONTROLS SPECIALIST, CMP ####[facility] Hlwaidkszl[address] [place], [place] [address]Dr. Inessatracy Chato Urea nitrogen/Creatinine [Mass ratio] 12.2 mg/mg Normal [facility] Comment on above: Performed By: #### B INTERNAL CONTROLS SPECIALIST, CMP ####[facility] Qqdnxhyhzo234[address] [place], [place] [address]Dr. Swathi Reis BNPon 07-06-2022 Natriuretic peptide B (Bld) [Mass/Vol] 4734.0 pg/mL Critically high <=1,800.0 [facility] Comment on above: Performed By: #### B INTERNAL CONTROLS SPECIALIST, CMP ####[facility] Mqajlnwyhn8[address] [place], [place] [address]Dr. Swathi Reis CBC AUTO DIFFon 10-14-2022 BASO # 0.0 103/ul Normal 0.0-0.1 [facility] Comment on above: Performed By: #### C BC ####[facility] Ztyoirqcdo7[address] [place] [address]Dr. Swathi Reis Basophils/100 WBC (Bld) 0.3 % Normal 0.2-2.0 [facility] Comment on above: Performed By: #### C BC ####[facility] Mqzlihhtru2652 [place] [address]Dr. Swathi Reis EO # 0.0 103/ul Normal 0.0-0.7 [facility] Comment on above: Performed By: #### C BC ####[facility] Ftoppfclah[address] [place], [place] [address]Dr. Swathi Reis Eosinophils/100 WBC (Bld) 0.1 % Critically low 0.9-7.0 [facility] Comment on above: Performed By: #### C BC ####[facility] Cgfsgjgoec364[address] [place], [place] [address]Dr. Swathi Reis Erythrocyte distribution width (RBC) [Ratio] 13.5 % Normal 11.0-15.0 [facility] Comment on above: Performed By: #### C BC ####[facility] Nykolbnuhi[address]84 [place] [address]Dr. Swathi Reis Hematocrit (Bld) [Volume fraction] 29.6 % Critically low 36.0-48.0 [facility] Comment on above: Performed By: #### C BC ####[facility] Vutdlmvncv246[address] [place], [place] [address]Dr. Swathi Reis Hemoglobin (Bld) [Mass/Vol] 9.6 g/dL Critically low 12.0-16.0 [facility] Comment on above: Performed By: #### C BC ####[facility] Kqsrdmnpqc8685 [place] [address]Dr. Swathi Reis IG # 0.07 10e3/ul Critically high 0.00-0.03 [facility] Comment on above: Performed By: #### C BC ####[facility] Hczypxtjmx7962 [place] [id number]. Swathi Chato IG % 0.5 % Normal 0.0-0.5 [facility] Comment on above: Performed By: #### C BC ####[facility] Hmoofuwnmc9080 [place] [address]Dr. Swathi Chato LYMPH # 1.4 103/ul Normal 1.2-3.8 [facility] Comment on above: Performed By: #### C BC ####[facility] Zegyixppcz8426 [place] [address]Dr. Swathi Chato Lymphocytes/100 WBC (Bld) 9.7 % Critically low 20.5-60.0 [facility] Comment on above: Performed By: #### C BC ####[facility] Zjteyuyqzo[address] [place], [place] [address]Dr. Inessatracy Reis MANUAL DIFF REQ NO Normal [facility] Comment on above: Performed By: #### C BC ####[facility] Augrnetjir4198 [place] [address]Dr. Swathi Chato MCH (RBC) [Entitic mass] 29.9 pg Normal 26.7-34.0 [facility] Comment on above: Performed By: #### C BC ####[facility] Mlznqrckkc44[address] [place], [place] [address]Dr. Swathi Reis MCHC (RBC) [Mass/Vol] 32.4 g/dL Normal 29.9-35.2 [facility] Comment on above: Performed By: #### C BC ####[facility] Olfhsmxvxf5351 [place] [address]Dr. Swathi Chato MCV (RBC) [Entitic vol] 92.2 fL Normal 81.0-99.0 [facility] Comment on above: Performed By: #### C BC ####[facility] Vgkkqwkkei[address] [place], [place] [address]Dr. Swathi Reis MONO # 1.3 103/ul Critically high 0.3-0.8 [facility] Comment on above: Performed By: #### C BC ####[facility] Mkbvhgsbqq8203 [place] [phone]. Swathi Reis Monocytes/100 WBC (Bld) 9.4 % Normal 1.7-12.0 [facility] Comment on above: Performed By: #### C BC ####[facility] Jxoziweulv1069 [place] [phone]. Swathi Reis NEUT # 11.4 103/ul Critically high 1.4-6.5 [facility] Comment on above: Performed By: #### C BC ####[facility] Kqdravvgej7667 [place] [address]Dr. Swathi Reis Neutrophils/100 WBC (Bld) 80.0 % Critically high 43.0-75.0 [facility] Comment on above: Performed By: #### C BC ####[facility] Oezyfhjvpb0535 [place] [address]Dr. Swathi Reis Platelet mean volume (Bld) [Entitic vol] 10.6 fL Normal 9.5-13.5 [facility] Comment on above: Performed By: #### C BC ####[facility] Mtthfhuoqq8908 [place] [phone]. Swathi Reis PLT 283 103/ul Normal 150-450 [facility] Comment on above: Performed By: #### C BC ####[facility] Sygzzqpynr7516 [place] [address]Dr. Swathi Reis RBC 3.21 106/ul Critically low 4.20-5.40 [facility] Comment on above: Performed By: #### C BC ####[facility] Abfvvdhdkw3178 [place] [phone]. Swathi Reis WBC 14.2 103/ul Critically high 4.0-11.0 [facility] Comment on above: Performed By: #### C BC ####[facility] Mrkwjnyumy137[address] [place], [place] [address]Dr. Swathi Reis ECHOCARDIO M/2D COMPLETEon ECHOCARDIO M/2D COMPLETE Normal [facility] POINT OF CARE GLUCOSEon 10- Glucose [Mass/Vol] 227 mg/dL Critically high 74-106 [facility] Comment on above: Performed By: #### P OCGLUC ####[facility] Hlsteakywq2322 [place] [address]Dr. Swathi Reis Glucose [Mass/Vol] 175 mg/dL Critically high 74-106 [facility] Comment on above: Performed By: #### P OCGLUC ####[facility] Yfaouuyomt9156 [place] [address]Dr. Swathi Reis PROF 14(COMP METB)on 07-06-2 022 Albumin [Mass/Vol] 2.6 g/dL Critically low 3.4-5.0 [facility] Comment on above: Performed By: #### B INTERNAL CONTROLS SPECIALIST, CMP ####[facility] Idgotoyikr624[address] [place], [place] [address]Dr. Swathi Reis Albumin/Globulin [Mass ratio] 0.7 {ratio} Normal [facility] Comment on above: Performed By: #### B INTERNAL CONTROLS SPECIALIST, CMP ####[facility] Gjwuftzcxw9[address] [place], [place] [address]Dr. Swathi Reis ALP [Catalytic activity/Vol] 79 U/L Normal 46-116 [facility] Comment on above: Performed By: #### B INTERNAL CONTROLS SPECIALIST, CMP ####[facility] Emsjzojvar250[address] [place], [place] [address]Dr. Swathi Reis ALT [Catalytic activity/Vol] 17 U/L Normal 14-59 [facility] Comment on above: Performed By: #### B INTERNAL CONTROLS SPECIALIST, CMP ####[facility] Oekspztsgu119[address] [place], [place] [address]Dr. Swathi Reis Anion gap [Moles/Vol] 11.5 mmol/L Normal [facility] Comment on above: Performed By: #### B INTERNAL CONTROLS SPECIALIST, CMP ####[facility] Qzfsdjesws[address] [place], [place] [address]Dr. Swathi Reis AST [Catalytic activity/Vol] 11 U/L Critically low 15-37 [facility] Comment on above: Performed By: #### B INTERNAL CONTROLS SPECIALIST, CMP ####[facility] Rdfreyqcfa08[address] [place], [place] [address]Dr. Swathi Reis Bilirubin [Mass/Vol] 0.9 mg/dL Normal 0.2-1.0 [facility] Comment on above: Performed By: #### B INTERNAL CONTROLS SPECIALIST, CMP ####[facility] Nosmrocsea[address] [place], [place] [address]Dr. Swathi Reis Calcium [Mass/Vol] 8.3 mg/dL Critically low 8.5-10.1 Th e [facility] Comment on above: Performed By: #### B INTERNAL CONTROLS SPECIALIST, CMP ####[facility] Mcqifkktpk[address] [place], [place] [address]Dr. Swathi Reis Chloride [Moles/Vol] 102 mmol/L Normal 98-107 [facility] Comment on above: Performed By: #### B INTERNAL CONTROLS SPECIALIST, CMP ####[facility] Tolfmayzqn384[address] [place], [place] [address]Dr. Inessatracy Reis CO2 [Moles/Vol] 29.5 mmol/L Normal 21.0-32.0 [facility] Comment on above: Performed By: #### B INTERNAL CONTROLS SPECIALIST, CMP ####[facility] Asnjfggwdm339[address] [place], [place] [address]Dr. Swathi Chato Creatinine [Mass/Vol] 1.47 mg/dL Critically high 0.55-1.02 [facility] Comment on above: Performed By: #### B INTERNAL CONTROLS SPECIALIST, CMP ####[facility] Sjsikwotok8[address] [place], [place] [address]Dr. Inessatracy Chato EGFR-AF CROATIAN 42 mL/min/1.73m2 Critically low >=60 [facility] Comment on above: Performed By: #### B INTERNAL CONTROLS SPECIALIST, CMP ####[facility] Zahqafqvhg040[address] [place], [place] [address]Dr. Inessatracy Chato EGFR-NON AF CROATIAN 34 mL/min/1.73m2 Critically low >=60 [facility] Comment on above: Performed By: #### B INTERNAL CONTROLS SPECIALIST, CMP ####[facility] Xezvdnfrnl[address] [place], [place] [address]Dr. Swathi Reis Globulin (S) [Mass/Vol] 3.7 g/dL Normal [facility] Comment on above: Performed By: #### B INTERNAL CONTROLS SPECIALIST, CMP ####[facility] Swnemvjhfq4130 [place] [address]Dr. Swathi Reis Glucose [Mass/Vol] 150 mg/dL Critically high 74-106 T [facility] Comment on above: Performed By: #### B INTERNAL CONTROLS SPECIALIST, CMP ####[facility] Hjkcivcmmu18[address] [place], [place] [address]Dr. Swathi Reis Potassium [Moles/Vol] 3.0 mmol/L Critically low 3.5-5.1 [facility] Comment on above: Performed By: #### B INTERNAL CONTROLS SPECIALIST, CMP ####[facility] Zhkkwhqjjr588[address] [place], [place] [address]Dr. Swathi Reis Protein [Mass/Vol] 6.3 g/dL Critically low 6.4-8.2 [facility] Comment on above: Performed By: #### B INTERNAL CONTROLS SPECIALIST, CMP ####[facility] Gxperbgsas64[address] [place], [place] [address]Dr. Swathi Reis Sodium [Moles/Vol] 140 mmol/L Normal 136-145 [facility] Comment on above: Performed By: #### B INTERNAL CONTROLS SPECIALIST, CMP ####[facility] Skcobsczsf043[address] [place], [place] [address]Dr. Swathi Reis Urea nitrogen [Mass/Vol] 16.0 mg/dL Normal 7.0-18.0 [facility] Comment on above: Performed By: #### B INTERNAL CONTROLS SPECIALIST, CMP ####[facility] Esauawkwky9[address] [place], [place] [address]Dr. Swathi Reis Urea nitrogen/Creatinine [Mass ratio] 10.9 mg/mg Normal [facility] Comment on above: Performed By: #### B INTERNAL CONTROLS SPECIALIST, CMP ####[facility] Wwuulwfdvv59[address] [place], [place] [address]Dr. Swathi Reis XR CHEST 2 Von 07-06-2022 XR CHEST 2 V Normal [facility] BLOOD GASES BTYon 07-05-2022 02 MODE NASAL CANNULA Normal [facility] Comment on above: Performed By: #### A BG ####[facility] Apddsdafqs[address] [place], [place] [address]Dr. Inessatracy Chato ALLENS TEST Positive Normal [facility] Comment on above: Performed By: #### A BG ####[facility] Ewntyhnwlj2046 [place] [address]Dr. Swathi Reis Base excess Calc (Bld) [Moles/Vol] 3.1 mmol/L Critically high -2.0-2.0 [facility] Comment on above: Performed By: #### A BG ####[facility] Rqvnumzion086[address] [place], [place] [address]Dr. Swathi Reis BIPAP PRESSURE Normal [facility] Comment on above: Performed By: #### A BG ####[facility] Vguxkvfxoz64[address] [place], [place] [address]Dr. Swathi Reis CPAP Normal [facility] Comment on above: Performed By: #### A BG ####[facility] Ngkkeodyfc[address] [place], [place] [address]Dr. Swathi Reis FIO2 Normal [facility] Comment on above: Performed By: #### A BG ####[facility] Uhgnkrodvr[address] [place], [place] [address]Dr. Swathi Reis HCO3 (Bld) [Moles/Vol] 27.0 mmol/L Critically high 22.0-26.0 [facility] Comment on above: Performed By: #### A BG ####[facility] Jsipigplnn196[address] [place], [place] [address]Dr. Swathi Reis LPM 5 Normal [facility] Comment on above: Performed By: #### A BG ####[facility] Slasxngrky[address] [place], [place] [address]Dr. Swathi Reis MINUTE VOLUME Normal [facility] Comment on above: Performed By: #### A BG ####[facility] Hwomtwszcx[address] [place], [place] [address]Dr. Swathi Reis Oxygen (Bld) [Partial pressure] 71.4 mm[Hg] Critically low 80.0-100.0 [facility] Comment on above: Performed By: #### A BG ####[facility] Bqzpuwjqiy65[address] [place], [place] [address]Dr. Swathi Reis Oxygen saturation in Blood 95.5 % Normal 95.0-100.0 [facility] Comment on above: Performed By: #### A BG ####[facility] Swimifrgdr0647 [place] [address]Dr. Swathi Reis PCO2 40.2 mmHg Normal 35.0-45.0 [facility] Comment on above: Performed By: #### A BG ####[facility] Jlbxwwbftm0572 [place] [address]Dr. Swathi Reis PEEP [facility] Comment on above: Performed By: #### A BG ####[facility] Ttfcgnaiwb4124 [place] [address]Dr. Swathi Reis pH (Bld) 7.440 [pH] Normal 7.350-7.450 [facility] Comment on above: Performed By: #### A BG ####[facility] Upkfbemnmq[address] [place], [place] [address]Dr. Swathi Reis PIP [facility] Comment on above: Performed By: #### A BG ####[facility] Ltpdrtwxap[address] [place], [place] [address]Dr. Swathi Reis PS [facility] Comment on above: Performed By: #### A BG ####[facility] Pupceycwam[address] [place], [place] [address]Dr. Swathi Reis PUNCTURE SITE RR [place] [facility] Comment on above: Performed By: #### A BG ####[facility] Tdumlgdhun[address] [place], [place] [address]Dr. Swathi Reis RATE [facility] Comment on above: Performed By: #### A BG ####[facility] Maitryrlln[address] [place], [place] [address]Dr. Swathi Reis VENT MODE [facility] Comment on above: Performed By: #### A BG ####[facility] Iqcbllsegw[address] [place], [place] [address]Dr. Swathi Reis [place] [facility] Comment on above: Performed By: #### A BG ####[facility] Ajvxptikdq[address] [place], [place] [address]Dr. Swathi Reis BNPon 07-05-2022 Natriuretic peptide B (Bld) [Mass/Vol] 2257.0 pg/mL Critically high <=1,800.0 [facility] Comment on above: Performed By: #### H STROPN, CMP, BNP ####[facility] Eabaihqemr5866 [place] [phone]. Swathi Reis CARDIAC TRINA 3-6on 2 CK [Catalytic activity/Vol] 54 U/L Normal 26-192 [facility] Comment on above: Performed By: #### C MREP ####[facility] Wltxncbixm9556 [place] [address]Dr. Swathi Reis CK.MB [Mass/Vol] ng/mL Normal <=3.60 [facility] Comment on above: Performed By: #### C MREP ####[facility] Ykikusbwrb1893 [place] [address]Dr. Swathi Reis HSTROP 18.6 pg/mL Normal 4.0-51.3 [facility] Comment on above: Result Comment: CUT- OFF POINTS HAVE BEEN ESTABLISHED BASED ON THE FOURTH UNIVERSAL DEFINITIONS OF MYOCARDIALINFARCTION. THE UPPER REFERENCE LIMIT (URL) OF TROPONIN, DEFINED THE 99TH PERCENTILE OFcTnI DISTRIBUTION IN A REFERENCE POPULATION, HAS BEEN CONFIRMED THE DECISION THRESHOLDFOR IA DIAGNOSIS. Performed By: #### C MREP ####[facility] Zgzjqaijdu3587 [place] [address]Dr. Swathi Reis CK [Catalytic activity/Vol] 38 U/L Normal 26-192 [facility] Comment on above: Performed By: #### C MREP ####[facility] Zzpwvnzlgy8390 [place] [phone]. Swathi Reis CK.MB [Mass/Vol] 0.51 ng/mL Normal <=3.60 [facility] Comment on above: Performed By: #### C MREP ####[facility] Tnujtcjtpu3046 [place] [phone]. Swathi Reis HSTROP 16.6 pg/mL Normal 4.0-51.3 [facility] Comment on above: Result Comment: CUT- OFF POINTS HAVE BEEN ESTABLISHED BASED ON THE FOURTH UNIVERSAL DEFINITIONS OF MYOCARDIALINFARCTION. THE UPPER REFERENCE LIMIT (URL) OF TROPONIN, DEFINED THE 99TH PERCENTILE OFcTnI DISTRIBUTION IN A REFERENCE POPULATION, HAS BEEN CONFIRMED THE DECISION THRESHOLDFOR IA DIAGNOSIS. Performed By: #### C MREP ####[facility] Rlprlluamp7912 [place] [address]Dr. Swathi Reis CBC W MANUAL DIFFon 07-05-20 22 ATYPICAL LYMPH # Normal [facility] Comment on above: Performed By: #### C JAUNMAN ####[facility] Bvsgdlisnt3568 [place] [address]Dr. Swathi Reis ATYPICAL LYMPH % Normal [facility] Comment on above: Performed By: #### C NGA ####[facility] Ppmfmmzxyu[address] [place], [place] [address]Dr. Swathi Reis BAND # 0.4 103/ul Critically high 0.0-0.3 [facility] Comment on above: Performed By: #### C NGA ####[facility] Ybberegwcy[address] [place], [place] [address]Dr. Swathi Reis BAND % 2 % Normal 0-5 [facility] Comment on above: Performed By: #### C NGA ####[facility] Nssynmjvpw[address] [place], [place] [address]Dr. Swathi Reis BASOM # 0.00 103/ul Normal 0.00-0.10 [facility] Comment on above: Performed By: #### C NGA ####[facility] Ftlaucvzrn[address] [place], [place] [address]Dr. Swathi Reis BASOM % 0.0 % Critically low 0.2-2.0 [facility] Comment on above: Performed By: #### C NGA ####[facility] Zqhpkvwpie[address] [place], [place] [address]Dr. Swathi Reis BLAST # Normal [facility] Comment on above: Performed By: #### C NGA ####[facility] Girtvsvcix43[address] [place] [address]Dr. Swathi Reis BLAST % Normal [facility] Comment on above: Performed By: #### C NGA ####[facility] Twrxblyady5528 [place], [place] [address]Xa. Swathi Reis CORRECTED WBC Normal 4.0-11.0 [facility] Comment on above: Performed By: #### C NGA ####[facility] Ibzrpiwuan0671 [place] [phone]. Swathi Reis EOS # 0.00 103/ul Normal 0.00-0.70 [facility] Comment on above: Performed By: #### C NGA ####[facility] Kwacebxvtz5940 [place] [phone]. Swathi Reis EOS% 0.0 % Critically low 0.9-7.0 [facility] Comment on above: Performed By: #### C NGA ####[facility] Fnvelrgsjl2066 [place] [phone]. Swathi Reis HCT 32.7 % Critically low 36.0-48.0 [facility] Comment on above: Performed By: #### C NGA ####[facility] Mlznqgibnf2540 [place] [phone]. Swathi Reis HGB 10.6 g/dl Critically low 12.0-16.0 [facility] Comment on above: Performed By: #### C NGA ####[facility] Acmkfdrofx6927 [place] [phone]. Swathi Reis LYMPHM # 0.84 103/ul Critically low 1.20-3.80 [facility] Comment on above: Performed By: #### C NGA ####[facility] Jqvsshlale8622 [place] [phone]. Swathi Reis LYMPHM% 4.0 % Critically low 20.5-60.0 [facility] Comment on above: Performed By: #### C NGA ####[facility] Oahuqlgwwa7038 [place] [phone]. Swathi Reis MCH 30.1 pg Normal 26.7-34.0 [facility] Comment on above: Performed By: #### C NGA ####[facility] Y[address]ww[address]ibck[address] [place], [place] [id number]. Swathi Reis MCHC 32.4 g/dl Normal 29.9-35.2 [facility] Comment on above: Performed By: #### C NGA ####[facility] Urrlvkaxzt5599 [place] [phone]. Swathi Reis MCV 92.9 fL Normal 81.0-99.0 [facility] Comment on above: Performed By: #### C NGA ####[facility] [facility] Iq[address]kaoe[address] [place] [id number]. Swathi Reis METAMYELOCYTE # Normal [facility] Comment on above: Performed By: #### C NGA ####[facility] Hfrphjkehz[address] [place] [phone]. Swathi Reis METAMYELOCYTE % Normal [facility] Comment on above: Performed By: #### C NGA ####[facility] Rjvao[address] [place], [place] [id number]. Swathi Reis MONOM# 1.88 103/ul Critically high 0.30-0.80 [facility] Comment on above: Performed By: #### C NGA ####[facility] Gbemhfkmdu[address] [place] [id number]. Swathi Reis MONOM% 9.0 % Normal 1.7-12.0 [facility] Comment on above: Performed By: #### C NGA ####[facility] Tcromgpmyc45[address] [place] [phone]. Swathi Reis MPV 10.6 fL Normal 9.5-13.5 [facility] Comment on above: Performed By: #### C NGA ####[facility] Aw[address] [place] [id number]. Swathi Reis MYELOCYTE # Normal [facility] Comment on above: Performed By: #### C NGA ####[facility] Hhtvzvnuvu14[address] [place] [phone]. Swathi Reis MYELOCYTE % Normal [facility] Comment on above: Performed By: #### C NGA ####[facility] Jizzycqvjc[address] [place] [id number]. Swathi Reis NRBC Normal [facility] Comment on above: Performed By: #### C NGA ####[facility] Filscilgro1048 [place], [place] [address]Bo. Swathi Reis PLT 335 103/ul Normal 150-450 [facility] Comment on above: Performed By: #### C NGA ####[facility] Aurcpvgszl7950 [place], [place] [address]Hz. Swathi Reis RBC 3.52 106/ul Critically low 4.20-5.40 [facility] Comment on above: Performed By: #### C NGA ####[facility] Oglugaeqkj7221 [place], [place] [address]Aa. Swathi Reis RDW 13.5 % Normal 11.0-15.0 [facility] Comment on above: Performed By: #### C NGA ####[facility] Axmnatfcco9905 [place], [place] [address]Su. Swathi Reis SEG # 17.76 103/ul Critically high 1.40-6.50 [facility] Comment on above: Performed By: #### C NGA ####[facility] Wefwcorobe2383 [place], [place] [address]Ax. Swtahi Reis SEG % 85.0 % Critically high 43.0-75.0 [facility] Comment on above: Performed By: #### C NGA ####[facility] Yjicaupjuj6070 [place], [place] [address]Hn. Swathi Reis WBC 20.9 103/ul Critically high 4.0-11.0 [facility] Comment on above: Performed By: #### C NGA ####[facility] Mkoguoilhl4073 [place], [place] [address]Iz. Swathi eRis CTA CHEST WO W CONon 022 CTA CHEST WO W CON Normal [facility] CULTURE BLOODon 07-05-2022 Microscopic examination of blood, culture Culture Observations: NO GROWTH AT 5 DAYS. Normal [facility] Comment on above: Performed By: #### B LDCX2 ####[facility] Vcckvafznd[address] [place] [phone]. Yitracy Reis Microscopic examination of blood, culture Culture Observations: NO GROWTH AT 5 DAYS. Normal [facility] Comment on above: Performed By: #### B LDCX1 ####[facility] [address] [place] [address]Dr. Swathi Reis [facility]23 SARS-CoV-2 (COVID-19) RNA ÓSCAR+probe Ql (Unsp spec) Not detected Normal NOT DETECTED [facility] Comment on above: Result Comment: When diagnostic testing is negative, the possibility of a false negative should be considered inthe context of a patient's recent exposures and the presence of clinical signs and symptomsconsistent with SARS-CoV-2.This test is not yet approved or cleared by the [place] FDA. When there are no FDA-approved or cleared tests available, and other criteria are met, FDA can make tests available under an emergency access mechanism called an Emergency Use Authorization (EUA). The EUA for this test is supported by the [place] of Health and Human Service's declaration that circumstances exist to justify the emergency use of in vitro diagnostics for the detection and/or diagnosis of the virus that causes COVID-19. This EUA will remain in effect for the duration of the COVID-19 declaration justifying emergency of IVDs, unless it is terminated or revoked by the FDA (after which the test may no longer be used). Performed By: #### C VDTBH ####[facility] Evy[address]juc[address] [place] [address]Dr. Swathi Reis D-DIMERon 07-05-2022 D-DIMER 2.17 mg/L FEU Critically high <=0.59 [facility] Comment on above: Performed By: #### P T, DDIM, PTT ####[facility] Glrtnqxxuq[address] [place] [address]Dr. Inessatracy Reis D-DIMER COMMENTS SEE BELOW Normal [facility] Comment on above: Result Comment: Incr eases in D-Dimer concentration observed with thromboembolic events can be variable due to localization, size, and age of the thrombus. Therefore, a thromboembolic event cannot be diagnosed with certainty on the basis of the reference range. D-Dimers may also be elevated for a variety of disorders including: advanced age, , coronary disease, cancer, liver disease, infection, inflammation, hematoma, DIC, trauma, post-surgery, diabetes, thrombolytic or anticoagulant therapy, stress, and generalized hospitalization. Performed By: #### P T, DDIM, PTT ####[facility] Axgmfroqcs6[address] [place] [address]Dr. Swathi Reis LACTATE/LACTIC ACIDon 2021 Lactate [Moles/Vol] 2.5 mmol/L Critically high 0.4-1.9 [facility] Comment on above: Performed By: #### L ACT ####[facility] Nuuwwwhkrt4[address] [place] [address]Dr. Swathi Reis Lactate [Moles/Vol] 3.2 mmol/L Critically high 0.4-1.9 [facility] Comment on above: Performed By: #### L ACT ####[facility] [address]ylsqrf[address] [place], [place] [address]Dr. Swathi Reis POINT OF CARE GLUCOSEon 06-23 Glucose [Mass/Vol] 179 mg/dL Critically high 74-106 T [facility] Comment on above: Performed By: #### P OCGLUC ####[facility] Uwvbrbsugu[address] [place], [place] [address]Dr. Swathi Reis PROF 14(COMP METB)on 022 Albumin [Mass/Vol] 3.2 g/dL Critically low 3.4-5.0 [facility] Comment on above: Performed By: #### H STROPN, CMP, BNP ####[facility] Punqbdmnkh37[address] [place] [address]Dr. Swathi Reis Albumin/Globulin [Mass ratio] 0.8 {ratio} Normal [facility] Comment on above: Performed By: #### H STROPN, CMP, BNP ####[facility] Niymbkduqu6[address] [place] [address]Dr. Swathi Reis ALP [Catalytic activity/Vol] 98 U/L Normal 46-116 [facility] Comment on above: Performed By: #### H STROPN, CMP, BNP ####[facility] Zsytnuampo9024 [place] [id number]. Swathi Reis ALT [Catalytic activity/Vol] 18 U/L Normal 14-59 [facility] Comment on above: Performed By: #### H STROPN, CMP, BNP ####[facility] Fhemhuyigj45[address] [place] [address]Dr. Swathi Reis Anion gap [Moles/Vol] 11.5 mmol/L Normal [facility] Comment on above: Performed By: #### H STROPN, CMP, BNP ####[facility] Mnjazwumak[address] [place] [address]Dr. Swathi Reis AST [Catalytic activity/Vol] 16 U/L Normal 15-37 [facility] Comment on above: Performed By: #### H STROPN, CMP, BNP ####[facility] Cmzmneowdm64[address] [place] [address]Dr. Swathi Reis Bilirubin [Mass/Vol] 0.7 mg/dL Normal 0.2-1.0 [facility] Comment on above: Performed By: #### H STROPN, CMP, BNP ####[facility] Zojzaxqgev9[address] [place] [address]Dr. Swathi Reis Calcium [Mass/Vol] 9.3 mg/dL Normal 8.5-10.1 [facility] Comment on above: Performed By: #### H STROPN, CMP, BNP ####[facility] Rsumshgwjd94[address] [place] [address]Dr. Swathi Reis Chloride [Moles/Vol] 100 mmol/L Normal 98-107 [facility] Comment on above: Performed By: #### H STROPN, CMP, BNP ####[facility] Apfdbshqfs2326 [place] [address]Dr. Swathi Reis CO2 [Moles/Vol] 29.5 mmol/L Normal 21.0-32.0 [facility] Comment on above: Performed By: #### H STROPN, CMP, BNP ####[facility] Mjzvrsoppd65[address] [place] [address]Dr. Swathi Reis Creatinine [Mass/Vol] 1.66 mg/dL Critically high 0.55-1.02 [facility] Comment on above: Performed By: #### H STROPN, CMP, BNP ####[facility] Rfcnuuxpor[address] [place] [address]Dr. Swathi Reis EGFR-AF CROATIAN 36 mL/min/1.73m2 Critically low >=60 [facility] Comment on above: Performed By: #### H STROPN, CMP, BNP ####[facility] Bdiiujaksu85[address] [place] [address]Dr. Swathi Reis EGFR-NON AF CROATIAN 30 mL/min/1.73m2 Critically low >=60 [facility] Comment on above: Performed By: #### H STROPN, CMP, BNP ####[facility] Turejbpyxk[address] [place], [place] [address]Dr. Swathi Reis Globulin (S) [Mass/Vol] 4.0 g/dL Normal [facility] Comment on above: Performed By: #### H STROPN, CMP, BNP ####[facility] Tcitnuklex[address] [place], [place] [address]Dr. Swathi Reis Glucose [Mass/Vol] 247 mg/dL Critically high 74-106 [facility] Comment on above: Performed By: #### H STROPN, CMP, BNP ####[facility] Lwoidipdhz[address] [place], [place] [address]Dr. Swathi Reis Potassium [Moles/Vol] 4.0 mmol/L Normal 3.5-5.1 [facility] Comment on above: Performed By: #### H STROPN, CMP, BNP ####[facility] Ekussqyhbo[address] [place], [place] [address]Dr. Swathi Reis Protein [Mass/Vol] 7.2 g/dL Normal 6.4-8.2 [facility] Comment on above: Performed By: #### H STROPN, CMP, BNP ####[facility] Jscqmgoepv87[address] [place] [address]Dr. Swathi Reis Sodium [Moles/Vol] 137 mmol/L Normal 136-145 [facility] Comment on above: Performed By: #### H STROPN, CMP, BNP ####[facility] Lzbqksflfu4087 [place] [phone]. Swathi Reis Urea nitrogen [Mass/Vol] 22.0 mg/dL Critically high 7.0-18.0 [facility] Comment on above: Performed By: #### H STROPN, CMP, BNP ####[facility] Rqboafzpts8269 [place] [address]Dr. Swathi Reis Urea nitrogen/Creatinine [Mass ratio] 13.3 mg/mg Normal [facility] Comment on above: Performed By: #### H STROPN, CMP, BNP ####[facility] Wiezpfpqly4862 [place] [address]Dr. Swathi Reis PROTIMEon 07-05-2022 INR Coag (PPP) [Relative time] 1.10 {INR} Normal [facility] Comment on above: Performed By: #### P T, DDIM, PTT ####[facility] Ewzqncwgtx[address] [place], [place] [address]Dr. Swathi Reis INR GUIDELINES SEE BELOW Normal [facility] Comment on above: Result Comment: HARRIETT RED INR: 2.0 - 3.0 CONDITIONS NOT LISTED BELOW 2.5 - 3.5 FOR PROSTHETIC HEART VALVE REPLACEMENT 2.5 - 3.5 RECURRENT THROMBOSIS Performed By: #### P T, DDIM, PTT ####[facility] Hymihqkkvs[address] [place], [place] [address]Dr. Swathi Reis PT Coag (PPP) [Time] 11.8 s Critically high 9.0-11.6 [facility] Comment on above: Performed By: #### P T, DDIM, PTT ####[facility] Dmiyhxtikp[address] [place], [place] [address]Dr. Swathi Reis PTTon 07-05-2022 aPTT Coag (Bld) [Time] 27.2 s Normal 22.3-36.2 [facility] Comment on above: Performed By: #### P T, DDIM, PTT ####[facility] Hbrhewlfmh[address] [place], [place] [address]Dr. Swathi Reis TROPONIN, HIGH SENSITIVITYon 07-05-2022 HSTROP 16.2 pg/mL Normal 4.0-51.3 [facility] Comment on above: Result Comment: CUT- OFF POINTS HAVE BEEN ESTABLISHED BASED ON THE FOURTH UNIVERSAL DEFINITIONS OF MYOCARDIALINFARCTION. THE UPPER REFERENCE LIMIT (URL) OF TROPONIN, DEFINED THE 99TH PERCENTILE OFcTnI DISTRIBUTION IN A REFERENCE POPULATION, HAS BEEN CONFIRMED THE DECISION THRESHOLDFOR IA DIAGNOSIS. Performed By: #### H STROPN, CMP, BNP ####[facility] Knybvflvdn4277 [place], [place] [address]Oz. Swathi Reis XR CHEST 1 Von 07-05-2022 XR CHEST 1 V Normal [facility] MRI WRIST LT WO CONon 2021 MRI WRIST LT WO CON Normal [facility] XR ANKLE LT MIN 3 Von 2021 XR ANKLE LT MIN 3 V Normal [facility] XR WRIST LT MIN 3 Von 2021 XR WRIST LT MIN 3 V Normal [facility] Progress Noteson 05-19-2022 [employer] Authentication Interface Message Text EMERGENCY TRIAGE, TREAT AND TRANSPORT (ET3) DOCUMENTATION OF TELEHEALTH VISIT Date / Time: 05/19/2022 / 1130 Name: Andrew Barros : 1945 SSN: (Not on file) EMS Agency: [facility] [x] Verbal consent obtained [] Implied consent - patient with potential emergency medical condition requiring assessment of capacity to refuse treatment and/or transport VITAL SIGNS: see flowsheet documentation Reason for Telehealth Visit: Chief Complaint Patient presents with Shortness of breath History of Present Ilness: 76 year old female, hx HTN, DM, afib Woke at 0730 and c/o sob, lasted 3 hours No chest pain/pressure No fever, cough No new leg swelling (+) hx similar SOB in past SOB gone on EMS arrival Pt denies diaphoresis, lightheadedness. Sob was unchanged the whole time, not worsened by walking Denies palpitations (+) emesis x 1 during event No headache Additional pertinent PMHx, SocHx, FamHx: See HPI Review of Systems: Denies the following: see HPI Exam: General: Awake, no distress, stands and ambulates without difficulty ENT: normocephalic, atraumatic Pulmonary: No respiratory distress, lungs reported clear by EMS, pt has no difficulty speaking or any noticeable resp distress/difficulty. No cough. Cardiovascular: Well perfused Neurologic: Oriented to person, place, time and events. Moving all extremities equally. Psychiatric: Appropriate. Good insight and judgement. Medical Decision Makin76 year old female with transient dyspnea of unclear etiology. Now resolved. Pt st she gets this intermittently. This may be due to transient afib. Ems able to do an ecg but unable to send it to me. Ems reports ecg appears NSR and computer did not read stemi. Pt does not wish to go to ED now and appears stable to stay home and f/u. Advised to call back if symptoms return/worsen or other concerns. Disposition Supported by Telehealth Assessment: ET3 transport decisions: Refused transport EMS Disposition Reported: Same ET3 Encounter Completed by: Kristian Mcwilliams MD Normal [facility] CBC AUTO DIFFon 05-07-2022 BASO # 0.1 103/ul Normal 0.0-0.1 [facility] Comment on above: Performed By: #### C BC ####[facility] Wdzyxfksbk[address] [place], [place] [address]DrOtto Reis Basophils/100 WBC (Bld) 0.5 % Normal 0.2-2.0 [facility] Comment on above: Performed By: #### C BC ####[facility] Vhwiumbvxh[address] [place], [place] [address]DrOtto Reis EO # 0.1 103/ul Normal 0.0-0.7 [facility] Comment on above: Performed By: #### C BC ####[facility] Jalurorbql[address] [place], [place] [address]DrOtto Reis Eosinophils/100 WBC (Bld) 1.1 % Normal 0.9-7.0 [facility] Comment on above: Performed By: #### C BC ####[facility] Guzbmyabnn7[address] [place], [place] [address]DrOtto Reis Erythrocyte distribution width (RBC) [Ratio] 13.2 % Normal 11.0-15.0 [facility] Comment on above: Performed By: #### C BC ####[facility] Tzdnsoktsh[address] [place], [place] [address]DrOtto Reis Hematocrit (Bld) [Volume fraction] 40.9 % Normal 36.0-48.0 [facility] Comment on above: Performed By: #### C BC ####[facility] Fkxrggkjak[address] [place] [address]Dr. Swathi Reis Hemoglobin (Bld) [Mass/Vol] 12.8 g/dL Normal 12.0-16.0 [facility] Comment on above: Performed By: #### C BC ####[facility] Pcufhxdxjz6167 [place] [address]Dr. Inessatracy Reis IG # 0.04 10e3/ul Critically high 0.00-0.03 [facility] Comment on above: Performed By: #### C BC ####[facility] Nkpqlqrsvs[address] [place], [place] [address]Dr. Swathi Reis IG % 0.4 % Normal 0.0-0.5 [facility] Comment on above: Performed By: #### C BC ####[facility] Butklxgacl[address] [place], [place] [address]DrOtto Reis LYMPH # 1.4 103/ul Normal 1.2-3.8 [facility] Comment on above: Performed By: #### C BC ####[facility] Odalsgidbx[address] [place], [place] [address]DrOtto Swathi Chato Lymphocytes/100 WBC (Bld) 13.2 % Critically low 20.5-60.0 [facility] Comment on above: Performed By: #### C BC ####[facility] Mydyiukzrn90[address] [place], [place] [address]DrOtto Inessatracy Reis MANUAL DIFF REQ NO Normal [facility] Comment on above: Performed By: #### C BC ####[facility] Pindccfyia[address] [place], [place] [address]Dr. Swathi Reis MCH (RBC) [Entitic mass] 29.5 pg Normal 26.7-34.0 [facility] Comment on above: Performed By: #### C BC ####[facility] Rogsbuwzhr[address] [place], [place] [address]Dr. Swathi Reis MCHC (RBC) [Mass/Vol] 31.3 g/dL Normal 29.9-35.2 [facility] Comment on above: Performed By: #### C BC ####[facility] Iuedaoygoa[address] [place] [address]DrOtto Reis MCV (RBC) [Entitic vol] 94.2 fL Normal 81.0-99.0 [facility] Comment on above: Performed By: #### C BC ####[facility] Jugqoknozn[address] [place], [place] [address]DrOtto Reis MONO # 0.9 103/ul Critically high 0.3-0.8 [facility] Comment on above: Performed By: #### C BC ####[facility] Apzwlcyjol[address] [place], [place] [address]DrOtto Reis Monocytes/100 WBC (Bld) 8.9 % Normal 1.7-12.0 [facility] Comment on above: Performed By: #### C BC ####[facility] Xbudiihwlk[address] [place], [place] [address]DrOtto Reis NEUT # 7.8 103/ul Critically high 1.4-6.5 [facility] Comment on above: Performed By: #### C BC ####[facility] Bukzawaoqn[address] [place], [place] [address]DrOtto Reis Neutrophils/100 WBC (Bld) 75.9 % Critically high 43.0-75.0 [facility] Comment on above: Performed By: #### C BC ####[facility] Lkrupizsjb[address] [place], [place] [address]DrOtto Reis Platelet mean volume (Bld) [Entitic vol] 10.7 fL Normal 9.5-13.5 [facility] Comment on above: Performed By: #### C BC ####[facility] Yvmhqvzgns[address] [place], [place] [address]DrOtto Reis PLT 257 103/ul Normal 150-450 [facility] Comment on above: Performed By: #### C BC ####[facility] Svdgvgcwkh[address] [place], [place] [address]DrOtto Reis RBC 4.34 106/ul Normal 4.20-5.40 [facility] Comment on above: Performed By: #### C BC ####[facility] Ofrtjfjifn3093 [place] [id number]. Swathi Reis WBC 10.2 103/ul Normal 4.0-11.0 [facility] Comment on above: Performed By: #### C BC ####[facility] Sosbcuthsi3279 [place] [id number]. Swathi Reis [facility]23 SARS-CoV-2 (COVID-19) RNA ÓSCAR+probe Ql (Unsp spec) Not detected Normal NOT DETECTED [facility] Comment on above: Result Comment: This test is not yet approved or cleared by the [place] FDA. When there are no FDA-approved or cleared tests available, and other criteria are met, FDA can make tests available under an emergency access mechanism called an Emergency Use Authorization (EUA). The EUA for this test is supported by the [place] of Health and Human Service's (HHS's) declaration that circumstances exist to justify the emergency use of in vitro diagnostics for the detection and/or diagnosis of the virus that causes COVID-19. This EUA will remain in effect (meaning this test can be used) for the duration of the COVID-19 declaration justifying emergency of IVDs, unless it is terminated or revoked by FDA (after which the test may no longer be used).When diagnostic testing is negative, the possibility of a false negative should be considered inthe context of a patient's recent exposures and the presence of clinical signs and symptomsconsistent with SARS-CoV-2. Performed By: #### C VDTBH ####[facility] Clmzjdpnor3524 [place], [place] [address]Qd. Swathi Reis PROF CHEM 8 (BAS METB)on Anion gap [Moles/Vol] 12.0 mmol/L Normal [facility] Comment on above: Performed By: #### B MP ####[facility] Okdcozldct3103 [place] [id number]. Swathi Reis Calcium [Mass/Vol] 9.7 mg/dL Normal 8.5-10.1 [facility] Comment on above: Performed By: #### B MP ####[facility] Nklplyhvmq3246 [place] [address]Dr. Swathi Chato Chloride [Moles/Vol] 102 mmol/L Normal 98-107 [facility] Comment on above: Performed By: #### B MP ####[facility] Cgizkltckm7321 [place] [address]Dr. Swathi Chato CO2 [Moles/Vol] 31.8 mmol/L Normal 21.0-32.0 [facility] Comment on above: Performed By: #### B MP ####[facility] Ggrcgunani[address] [place], [place] [address]Dr. Inessatracy Chato Creatinine [Mass/Vol] 1.22 mg/dL Critically high 0.55-1.02 [facility] Comment on above: Performed By: #### B MP ####[facility] Gyiqpolfhc[address] [place], [place] [address]Dr. Inessatracy Chato EGFR-AF CROATIAN 52 mL/min/1.73m2 Critically low >=60 [facility] Comment on above: Performed By: #### B MP ####[facility] S[address]zhicgjke[address] [place], [place] [address]Dr. Inessatracy Chato EGFR-NON AF CROATIAN 43 mL/min/1.73m2 Critically low >=60 [facility] Comment on above: Performed By: #### B MP ####[facility] Hnizcqjbzg[address] [place], [place] [address]Dr. Inessatracy Chato Glucose [Mass/Vol] 249 mg/dL Critically high 74-106 [facility] Comment on above: Performed By: #### B MP ####[facility] Jxxyjaiotm[address] [place], [place] [address]Dr. Swathi Reis Potassium [Moles/Vol] 3.8 mmol/L Normal 3.5-5.1 [facility] Comment on above: Performed By: #### B MP ####[facility] [facility] Fnmoozgaph[address] [place], [place] [address]Dr. Swathi Reis Sodium [Moles/Vol] 142 mmol/L Normal 136-145 [facility] Comment on above: Performed By: #### B MP ####[facility] Uwonjromcw[address] [place], [place] [address]Dr. Swathi Reis Urea nitrogen [Mass/Vol] 21.0 mg/dL Critically high 7.0-18.0 [facility] Comment on above: Performed By: #### B MP ####[facility] Gvinkmxbju407[address] [place], [place] [address]Dr. Swathi Reis Urea nitrogen/Creatinine [Mass ratio] 17.2 mg/mg Normal [facility] Comment on above: Performed By: #### B MP ####[facility] Orsbghhkye[address] [place], [place] [address]Dr. Swathi Reis CBC AUTO DIFFon 01-12-2022 BASO # 0.1 103/ul Normal 0.0-0.1 [facility] Comment on above: Performed By: #### C BC ####[facility] Jzegtmkrqq376[address] [place], [place] [address]Dr. Swathi Reis Basophils/100 WBC (Bld) 0.7 % Normal 0.2-2.0 [facility] Comment on above: Performed By: #### C BC ####[facility] Dmgheyyfnq253[address] [place], [place] [address]Dr. Swathi Reis EO # 0.3 103/ul Normal 0.0-0.7 [facility] Comment on above: Performed By: #### C BC ####[facility] Frqayeonsf444[address] [place], [place] [address]Dr. Swathi Reis Eosinophils/100 WBC (Bld) 2.9 % Normal 0.9-7.0 [facility] Comment on above: Performed By: #### C BC ####[facility] Bpkedaylqw8[address] [place], [place] [address]Dr. Swathi Reis Erythrocyte distribution width (RBC) [Ratio] 13.2 % Normal 11.0-15.0 [facility] Comment on above: Performed By: #### C BC ####[facility] Sjhtvelcsa[address] [place], [place] [address]Dr. Swathi Reis Hematocrit (Bld) [Volume fraction] 35.9 % Critically low 36.0-48.0 [facility] Comment on above: Performed By: #### C BC ####[facility] [address]lctr[address] [place] [address]Dr. Swathi Reis Hemoglobin (Bld) [Mass/Vol] 11.6 g/dL Critically low 12.0-16.0 [facility] Comment on above: Performed By: #### C BC ####[facility] Jvyclknubz[address] [place], [place] [address]Dr. Swathi Reis IG # 0.03 10e3/ul Normal 0.00-0.03 [facility] Comment on above: Performed By: #### C BC ####[facility] Rzcsmoufny[address] [place], [place] [address]Dr. Inessatracy Reis IG % 0.4 % Normal 0.0-0.5 [facility] Comment on above: Performed By: #### C BC ####[facility] Wmkykzcdrw8[address] [place], [place] [address]DrOtto Inessatracy Reis LYMPH # 1.5 103/ul Normal 1.2-3.8 [facility] Comment on above: Performed By: #### C BC ####[facility] Sypjixobbq327[address] [place], [place] [address]DrOtto Inessatracy Reis Lymphocytes/100 WBC (Bld) 17.6 % Critically low 20.5-60.0 [facility] Comment on above: Performed By: #### C BC ####[facility] Hfqsgsmjfn9[address] [place], [place] [address]DrOtto Inessatracy Reis MANUAL DIFF REQ NO Normal [facility] Comment on above: Performed By: #### C BC ####[facility] Bttamzslda16[address] [place], [place] [address]Dr. Inessatracy Reis MCH (RBC) [Entitic mass] 30.0 pg Normal 26.7-34.0 [facility] Comment on above: Performed By: #### C BC ####[facility] Isidtzcvak018[address] [place], [place] [address]Dr. Inessatracy Reis MCHC (RBC) [Mass/Vol] 32.3 g/dL Normal 29.9-35.2 [facility] Comment on above: Performed By: #### C BC ####[facility] Coofmifkow[address] [place], [place] [address]DrOtto Swathi Chato MCV (RBC) [Entitic vol] 92.8 fL Normal 81.0-99.0 [facility] Comment on above: Performed By: #### C BC ####[facility] Ibrvzwecgz14[address] [place], [place] [address]DrOtto Reis MONO # 1.1 103/ul Critically high 0.3-0.8 [facility] Comment on above: Performed By: #### C BC ####[facility] Bzrykggtem0214[address] [place], [place] [address]DrOtto Reis Monocytes/100 WBC (Bld) 12.3 % Critically high 1.7-12.0 [facility] Comment on above: Performed By: #### C BC ####[facility] Lonabxrdic257[address] [place], [place] [address]DrOtto Reis NEUT # 5.7 103/ul Normal 1.4-6.5 [facility] Comment on above: Performed By: #### C BC ####[facility] Juayhnikjz[address] [place], [place] [address]DrOtto Reis Neutrophils/100 WBC (Bld) 66.1 % Normal 43.0-75.0 [facility] Comment on above: Performed By: #### C BC ####[facility] Dpnklhqahx[address] [place], [place] [address]DrOtto Reis Platelet mean volume (Bld) [Entitic vol] 10.9 fL Normal 9.5-13.5 [facility] Comment on above: Performed By: #### C BC ####[facility] Dfqfvgyiqj[address] [place], [place] [address]DrOtto Reis PLT 246 103/ul Normal 150-450 [facility] Comment on above: Performed By: #### C BC ####[facility] Cppinlghvn[address] [place], [place] [address]DrOtto Reis RBC 3.87 106/ul Critically low 4.20-5.40 [facility] Comment on above: Performed By: #### C BC ####[facility] H[address]vncd[address]eg[address] [place] [address]Dr. Swathi Reis WBC 8.6 103/ul Normal 4.0-11.0 [facility] Comment on above: Performed By: #### C BC ####[facility] S[address]qhfvhop78[address] [place] [address]Dr. Swathi Reis CRPon 01-12-2022 CRP [Mass/Vol] mg/L Normal <=1.0 [facility] Comment on above: Performed By: #### C MP, CRP ####[facility] Ygzkbjdioq3280 [place] [address]Dr. Swathi Reis POINT OF CARE GLUCOSEon 12-23 Glucose [Mass/Vol] 95 mg/dL Normal 74-106 [facility] Comment on above: Performed By: #### P OCGLUC ####[facility] Kzxufxbdqb47[address] [place] [address]Dr. Swathi Chato PROF 14(COMP METB)on 022 Albumin [Mass/Vol] 2.9 g/dL Critically low 3.4-5.0 [facility] Comment on above: Performed By: #### C MP, CRP ####[facility] Hnjrnqlbsb7[address] [place] [address]Dr. Swathi Reis Albumin/Globulin [Mass ratio] 0.8 {ratio} Normal [facility] Comment on above: Performed By: #### C MP, CRP ####[facility] Eopobftvon[address] [place] [address]Dr. Swathi Reis ALP [Catalytic activity/Vol] 91 U/L Normal 46-116 [facility] Comment on above: Performed By: #### C MP, CRP ####[facility] Tmmeulmhxb9645 [place] [address]Dr. Swathi Reis ALT [Catalytic activity/Vol] 18 U/L Normal 14-59 [facility] Comment on above: Performed By: #### C MP, CRP ####[facility] Awdbhkqufv033[address] [place], [place] [address]Dr. Swathi Reis Anion gap [Moles/Vol] 9.1 mmol/L Normal [facility] Comment on above: Performed By: #### C MP, CRP ####[facility] Spbsngvfef024[address] [place], [place] [address]Dr. Swathi Reis AST [Catalytic activity/Vol] 17 U/L Normal 15-37 [facility] Comment on above: Performed By: #### C MP, CRP ####[facility] Idyabpsaof[address] [place], [place] [address]Dr. Swathi Reis Bilirubin [Mass/Vol] 0.6 mg/dL Normal 0.2-1.3 [facility] Comment on above: Performed By: #### C MP, CRP ####[facility] Spyqjbxlme74[address] [place], [place] [address]Dr. Swathi Reis Calcium [Mass/Vol] 8.6 mg/dL Normal 8.5-10.1 [facility] Comment on above: Performed By: #### C MP, CRP ####[facility] Pyxnicfdln115[address] [place], [place] [address]Dr. Swathi Reis Chloride [Moles/Vol] 104 mmol/L Normal 98-107 [facility] Comment on above: Performed By: #### C MP, CRP ####[facility] Ithxnsssib8[address] [place], [place] [address]Dr. Swathi Reis CO2 [Moles/Vol] 32.1 mmol/L Critically high 22.0-30.0 [facility] Comment on above: Performed By: #### C MP, CRP ####[facility] Btqvxcppvt[address] [place], [place] [address]Dr. Swathi Reis Creatinine [Mass/Vol] 0.96 mg/dL Normal 0.52-1.04 [facility] Comment on above: Performed By: #### C MP, CRP ####[facility] Kybvjktgxv[address] [place], [place] [address]Dr. Swathi Reis EGFR-AF CROATIAN >60 Normal >=60 [facility] Comment on above: Performed By: #### C MP, CRP ####[facility] [address]pm[address]wsc[address] [place] [id number]. Swathi Reis EGFR-NON AF CROATIAN 56 mL/min/1.73m2 Critically low >=60 [facility] Comment on above: Performed By: #### C MP, CRP ####[facility] Mvzugjcgsa36[address] [place] [id number]. Swathi Reis Globulin (S) [Mass/Vol] 3.5 g/dL Normal [facility] Comment on above: Performed By: #### C MP, CRP ####[facility] Mphmqwurjl0127 [place] [address]Dr. Swathi Reis Glucose [Mass/Vol] 114 mg/dL Critically high 74-106 [facility] Comment on above: Performed By: #### C MP, CRP ####[facility] Efydwuimkh85[address] [place] [address]Dr. Swathi Reis Potassium [Moles/Vol] 3.2 mmol/L Critically low 3.4-5.0 [facility] Comment on above: Performed By: #### C MP, CRP ####[facility] Vfastlvhal7021 [place] [address]Dr. Swathi Reis Protein [Mass/Vol] 6.4 g/dL Normal 6.1-8.2 [facility] Comment on above: Performed By: #### C MP, CRP ####[facility] Arebmjaxvc1650 [place] [address]Dr. Swathi Reis Sodium [Moles/Vol] 142 mmol/L Normal 137-145 [facility] Comment on above: Performed By: #### C MP, CRP ####[facility] Cfrvgawtzx3619 [place] [id number]. Swathi Reis Urea nitrogen [Mass/Vol] 20.0 mg/dL Critically high 7.0-18.0 [facility] Comment on above: Performed By: #### C MP, CRP ####[facility] Fjdzuctgae2123 [place] [id number]. Swathi Reis Urea nitrogen/Creatinine [Mass ratio] 20.8 mg/mg Normal [facility] Comment on above: Performed By: #### C MP, CRP ####[facility] Cdeawzcwzu[address] [place], [place] [address]Dr. Swathi Reis T3, TOTAL (TRIIODOTHYRONINE) on 01-12-2022 T3, TOTAL 79 ng/dL Normal 71-180 [facility] Comment on above: Performed By: #### T 3TOTAL ####[facility] Sfxgxbanzk[address] [place], [place] [address]Dr. Swathi Reis CBC AUTO DIFFon 01-11-2022 BASO # 0.1 103/ul Normal 0.0-0.1 [facility] Comment on above: Performed By: #### C BC ####[facility] Kooulmmhat[address] [place], [place] [address]Dr. Swathi Reis Basophils/100 WBC (Bld) 0.5 % Normal 0.2-2.0 [facility] Comment on above: Performed By: #### C BC ####[facility] Bgljxrokcw147[address] [place], [place] [address]Dr. Swathi Reis EO # 0.1 103/ul Normal 0.0-0.7 [facility] Comment on above: Performed By: #### C BC ####[facility] Tqxfujqoml[address] [place], [place] [address]Dr. Swathi Reis Eosinophils/100 WBC (Bld) 1.1 % Normal 0.9-7.0 [facility] Comment on above: Performed By: #### C BC ####[facility] Yapbfqyqaf[address] [place], [place] [address]Dr. Swathi Reis Erythrocyte distribution width (RBC) [Ratio] 13.1 % Normal 11.0-15.0 [facility] Comment on above: Performed By: #### C BC ####[facility] Epcdcsgtwa[address] [place], [place] [address]Dr. Swathi Reis Hematocrit (Bld) [Volume fraction] 39.1 % Normal 36.0-48.0 [facility] Comment on above: Performed By: #### C BC ####[facility] Zaxvlnnnxq[address] [place], [place] [address]Dr. Swathi Chato Hemoglobin (Bld) [Mass/Vol] 12.7 g/dL Normal 12.0-16.0 [facility] Comment on above: Performed By: #### C BC ####[facility] Wmmsxarhoa[address] [place] [address]Dr. Inessatracy Reis IG # 0.04 10e3/ul Critically high 0.00-0.03 [facility] Comment on above: Performed By: #### C BC ####[facility] Lwgcbeenfj7784 [place] [address]Dr. Swathi Reis IG % 0.4 % Normal 0.0-0.5 [facility] Comment on above: Performed By: #### C BC ####[facility] Anphpzmwrp[address] [place] [address]DrOtto Reis LYMPH # 1.4 103/ul Normal 1.2-3.8 [facility] Comment on above: Performed By: #### C BC ####[facility] Rjvzroujmj3682 [place] [address]Dr. Swathi Reis Lymphocytes/100 WBC (Bld) 12.4 % Critically low 20.5-60.0 [facility] Comment on above: Performed By: #### C BC ####[facility] Dolfgezvtv5[address] [place] [address]Dr. Inessatracy Reis MANUAL DIFF REQ NO Normal [facility] Comment on above: Performed By: #### C BC ####[facility] Amddlhmqjz34[address] [place] [address]DrOtto Swathi Chato MCH (RBC) [Entitic mass] 30.0 pg Normal 26.7-34.0 [facility] Comment on above: Performed By: #### C BC ####[facility] Wgbdyshzyd1264 [place] [address]DrOtto Swathi Chato MCHC (RBC) [Mass/Vol] 32.5 g/dL Normal 29.9-35.2 [facility] Comment on above: Performed By: #### C BC ####[facility] Anoddkfkiz[address]199 [place] [address]Dr. Swathi Reis MCV (RBC) [Entitic vol] 92.4 fL Normal 81.0-99.0 [facility] Comment on above: Performed By: #### C BC ####[facility] Ckgnndxwpd9553 [place] [address]Dr. Swathi Chato MONO # 1.1 103/ul Critically high 0.3-0.8 [facility] Comment on above: Performed By: #### C BC ####[facility] Juwigcieeu[address] [place] [address]Dr. Swathi Reis Monocytes/100 WBC (Bld) 10.1 % Normal 1.7-12.0 [facility] Comment on above: Performed By: #### C BC ####[facility] Mtgvzjgegm[address] [place], [place] [address]Dr. Inessatracy Chato NEUT # 8.3 103/ul Critically high 1.4-6.5 [facility] Comment on above: Performed By: #### C BC ####[facility] Tomougcxtm[address] [place], [place] [address]Dr. Swathi Reis Neutrophils/100 WBC (Bld) 75.5 % Critically high 43.0-75.0 [facility] Comment on above: Performed By: #### C BC ####[facility] Mhaqasrvxp3424 [place] [address]Dr. Swathi Reis Platelet mean volume (Bld) [Entitic vol] 11.3 fL Normal 9.5-13.5 [facility] Comment on above: Performed By: #### C BC ####[facility] Lgfwdzbpkq167[address] [place], [place] [address]Dr. Swathi Reis PLT 292 103/ul Normal 150-450 [facility] Comment on above: Performed By: #### C BC ####[facility] Kyrmwdapfj[address] [place], [place] [address]Dr. Swathi Reis RBC 4.23 106/ul Normal 4.20-5.40 [facility] Comment on above: Performed By: #### C BC ####[facility] Ymazthuhjo[address] [place], [place] [address]Dr. Swathi Reis WBC 11.0 103/ul Normal 4.0-11.0 [facility] Comment on above: Performed By: #### C BC ####[facility] E[address]figwkvbc[address] [place], [place] [address]Av. Swathi Reis CT HEAD WO CONon 01-11-2022 CT HEAD WO CON Normal [facility] CULTURE URINEon 01-11-2022 CULTURE URINE Culture Observations : LIGHT GROWTH OF MIXED GENITAL ELEONORA. NO POTENTIAL PATHOGENS SEEN. Normal [facility] Comment on above: Performed By: #### U RCX ####[facility] Igqqqzjhym5761 [place], [place] [address]Gb. Swathi Reis Covid-19 PCR ([facility])on 12-23 SARS-CoV-2 (COVID-19) RNA ÓSCAR+probe Ql (Unsp spec) Not detected Normal NOT DETECTED [facility] Comment on above: Result Comment: When diagnostic testing is negative, the possibility of a false negative should be considered inthe context of a patient's recent exposures and the presence of clinical signs and symptomsconsistent with SARS-CoV-2.This test is not yet approved or cleared by the [place] FDA. When there are no FDA-approved or cleared tests available, and other criteria are met, FDA can make tests available under an emergency access mechanism called an Emergency Use Authorization (EUA). The EUA for this test is supported by the [place] of Health and Human Service's declaration that circumstances exist to justify the emergency use of in vitro diagnostics for the detection and/or diagnosis of the virus that causes COVID-19. This EUA will remain in effect for the duration of the COVID-19 declaration justifying emergency of IVDs, unless it is terminated or revoked by the FDA (after which the test may no longer be used). Performed By: #### C VDTBH ####[facility] Maxzqeomoe4[address] [place], [place] [address]Es. Swathi Reis EEGon 01-11-2022 EEG Normal [facility] ER URINE PROFILEon Bilirubin Ql (U) Negative Normal NEGATIVE [facility] Comment on above: Performed By: #### E RUR ####[facility] Gjwuxuanpb32[address] [place] [address]Dr. Swathi Reis Clarity (U) CLEAR Normal CLEAR [facility] Comment on above: Performed By: #### E RUR ####[facility] Xcrlkbdodo[address] [place], [place] [address]Dr. Swathi Reis Color (U) LT. YELLOW Normal YELLOW [facility] Comment on above: Performed By: #### E RUR ####[facility] Qzridmgxnl234[address] [place], [place] [address]Dr. Swathi Reis ERUAHD A micrscopic examina tion will be performed if indicated. Normal [facility] Comment on above: Performed By: #### E RUR ####[facility] Ybivltqrsl[address] [place], [place] [address]Dr. Swathi Reis Glucose Ql (U) Negative Normal NEGATIVE [facility] Comment on above: Performed By: #### E RUR ####[facility] Pmcfzvzcxx[address] [place], [place] [address]Dr. Swathi Reis Hemoglobin Ql (U) Negative Normal NEGATIVE [facility] Comment on above: Performed By: #### E RUR ####[facility] Pwfbtnzgfh737[address] [place], [place] [address]Dr. Swathi Reis Ketones Ql (U) Negative Normal NEGATIVE [facility] Comment on above: Performed By: #### E RUR ####[facility] Jcfbisawtc366[address] [place], [place] [address]Dr. Swathi Reis LEUKOCYTES Negative Normal NEGATIVE [facility] Comment on above: Performed By: #### E RUR ####[facility] Julpjwmyaa19[address] [place], [place] [address]Dr. Swathi Reis Nitrite Ql (U) Negative Normal NEGATIVE [facility] Comment on above: Performed By: #### E RUR ####[facility] Unxfozqcos[address] [place], [place] [address]Dr. Swathi Reis pH (U) 6.0 [pH] Normal 5-9 [facility] Comment on above: Performed By: #### E RUR ####[facility] Xvxbjyxiif2879 [place] [address]Dr. Swathi Reis SPEC GRAVITY 1.010 Normal 1.005-<=1.0 25 [facility] Comment on above: Performed By: #### E RUR ####[facility] Ddxegancer[address] [place], [place] [address]Dr. Swathi Reis UA PROTEIN Negative Normal NEGATIVE/ TRACE [facility] Comment on above: Performed By: #### E RUR ####[facility] Cixvguurwh[address] [place], [place] [address]Dr. Swathi Reis UR MICRO IND NOT INDICATED Normal [facility] Comment on above: Performed By: #### E RUR ####[facility] Ihpjpddzfh906[address] [place], [place] [address]Dr. Swathi Reis Urobilinogen Qn (U) 0.2 {Sánchez'U}/dL Normal 0.2 - 1. 0 [facility] Comment on above: Performed By: #### E RUR ####[facility] Kgdutikqvy[address] [place], [place] [address]Dr. Swathi Reis LACTATE/LACTIC ACIDon 2021 Lactate [Moles/Vol] 0.9 mmol/L Normal 0.7-2.0 [facility] Comment on above: Performed By: #### L ACT ####[facility] Ofdlwidsea[address] [place], [place] [address]Dr. Swathi Reis Lactate [Moles/Vol] 0.9 mmol/L Normal 0.7-2.0 The [place] Comment on above: Performed By: #### L ACT ####[facility] Dvdrucxuuw9[address] [place], [place] [address]Dr. Swathi Reis POINT OF CARE GLUCOSEon 12-23 Glucose [Mass/Vol] 175 mg/dL Critically high 74-106 [facility] Comment on above: Performed By: #### P OCGLUC ####[facility] Ynulutwszm[address] [place], [place] [address]Dr. Swathi Reis Glucose [Mass/Vol] 116 mg/dL Critically high 74-106 [facility] Comment on above: Performed By: #### P OCGLUC ####[facility] Tqbdveuhjd75[address] [place] [address]Dr. Swathi Reis PROF 14(COMP METB)on 022 Albumin [Mass/Vol] 3.3 g/dL Critically low 3.4-5.0 Th e [facility] Comment on above: Performed By: #### H STROPN, CMP ####[facility] Ehbqpsridy5060 [place] [address]Dr. Swathi Reis Albumin/Globulin [Mass ratio] 0.8 {ratio} Normal [facility] Comment on above: Performed By: #### H STROPN, CMP ####[facility] Zjmkdfebcq8454 [place] [address]Dr. Swathi Reis ALP [Catalytic activity/Vol] 110 U/L Normal 46-116 [facility] Comment on above: Performed By: #### H STROPN, CMP ####[facility] Zvszpdbkrj0281 [place] [address]Dr. Swathi Reis ALT [Catalytic activity/Vol] 20 U/L Normal 14-59 [facility] Comment on above: Performed By: #### H STROPN, CMP ####[facility] Wxpnjvttgt2858 [place] [address]Dr. Swathi Reis Anion gap [Moles/Vol] 15.9 mmol/L Normal [facility] Comment on above: Performed By: #### H STROPN, CMP ####[facility] Ppbiwbocig5161 [place] [address]Dr. Swathi Reis AST [Catalytic activity/Vol] 24 U/L Normal 15-37 [facility] Comment on above: Performed By: #### H STROPN, CMP ####[facility] [facility] [address]ugvbal[address] [place] [address]Dr. Swathi Reis Bilirubin [Mass/Vol] 0.5 mg/dL Normal 0.2-1.3 [facility] Comment on above: Performed By: #### H STROPN, CMP ####[facility] Abxtxupdwk[address] [place] [address]Dr. Swathi Reis Calcium [Mass/Vol] 9.5 mg/dL Normal 8.5-10.1 [facility] Comment on above: Performed By: #### H RAFFI, CMP ####[facility] Ypfpfhvvdf[address] [place] [address]Dr. Swathi Reis Chloride [Moles/Vol] 100 mmol/L Normal 98-107 [facility] Comment on above: Performed By: #### H STROPN, CMP ####[facility] Hvrjqqyufo8[address] [place] [address]Dr. Inessatracy Reis CO2 [Moles/Vol] 27.8 mmol/L Normal 22.0-30.0 [facility] Comment on above: Performed By: #### H RAFFI, CMP ####[facility] Bcdyrpkmpz[address] [place], [place] [address]Dr. Inessatracy Reis Creatinine [Mass/Vol] 1.21 mg/dL Critically high 0.52-1.04 [facility] Comment on above: Performed By: #### H RAFFI, CMP ####[facility] Wwolowowxx[address] [place], [place] [address]Dr. Inessatracy Chato EGFR-AF CROATIAN 52 mL/min/1.73m2 Critically low >=60 [facility] Comment on above: Performed By: #### H RAFFI, CMP ####[facility] Fsleoyrwng[address] [place], [place] [address]Dr. Inessatracy Chato EGFR-NON AF CROATIAN 43 mL/min/1.73m2 Critically low >=60 [facility] Comment on above: Performed By: #### H STROPN, CMP ####[facility] Nhziir[address] [place], [place] [address]Dr. Swathi Reis Globulin (S) [Mass/Vol] 4.1 g/dL Normal [facility] Comment on above: Performed By: #### H NIGHATPN, CMP ####[facility] Xuaeujkwih[address] [place], [place] [address]Dr. Swathi Reis Glucose [Mass/Vol] 195 mg/dL Critically high 74-106 T [facility] Comment on above: Performed By: #### H STROPN, CMP ####[facility] Hbsvzimp[address] [place], [place] [id number]. Swathi Reis Potassium [Moles/Vol] 3.7 mmol/L Normal 3.4-5.0 [facility] Comment on above: Performed By: #### H RAFFI, CMP ####[facility] Uyqyojquiz6[address] [place] [address]Dr. Swathi Reis Protein [Mass/Vol] 7.4 g/dL Normal 6.1-8.2 [facility] Comment on above: Performed By: #### H RAFFI, CMP ####[facility] Xxmodizaym5554 [place] [address]Dr. Swathi Reis Sodium [Moles/Vol] 140 mmol/L Normal 137-145 [facility] Comment on above: Performed By: #### H RAFFI, CMP ####[facility] Bmlmszwbrp9692 [place] [address]Dr. Swathi Reis Urea nitrogen [Mass/Vol] 22.0 mg/dL Critically high 7.0-18.0 [facility] Comment on above: Performed By: #### H RAFFI, CMP ####[facility] Eleoqyukcy[address] [place] [address]Dr. Swathi Reis Urea nitrogen/Creatinine [Mass ratio] 18.2 mg/mg Normal [facility] Comment on above: Performed By: #### H RAFFI, CMP ####[facility] Mfggynziiy[address] [place] [address]Dr. Swathi Reis T4on 01-11-2022 T4 [Mass/Vol] 9.10 ug/dL Normal 5.53-11.00 [facility] Comment on above: Performed By: #### T SH, T4 ####[facility] Bgwcaxsiep[address] [place] [address]Dr. Swathi Reis TROPONIN, HIGH SENSITIVITYon 01-11-2022 HSTROP 13.7 pg/mL Normal 4.0-35.5 [facility] Comment on above: Result Comment: CUT- OFF POINTS HAVE BEEN ESTABLISHED BASED ON THE FOURTH UNIVERSAL DEFINITIONS OF MYOCARDIALINFARCTION. THE UPPER REFERENCE LIMIT (URL) OF TROPONIN, DEFINED THE 99TH PERCENTILE OFcTnI DISTRIBUTION IN A REFERENCE POPULATION, HAS BEEN CONFIRMED THE DECISION THRESHOLDFOR IA DIAGNOSIS. Performed By: #### H STROPN, CMP ####[facility] Pbnutamamn[address] [place], [place] [address]Dr. Swathi Reis TSHon 01-11-2022 TSH 2.618 uIU/mL Normal 0.470-4.680 [facility] Comment on above: Performed By: #### T SH, T4 ####[facility] Tnbibzjkjx[address] [place], [place] [address]Dr. Swathi Reis TSH RANGE SEE BELOW Normal [facility] Comment on above: Result Comment: <0.3 4 UIU/ml HYPERTHYROID 0.34-5.60 UIU/ml EUTHYROID >5.60 UIU/ml HYPOTHYROID Performed By: #### T SH, T4 ####[facility] Lvumtfqzgg[address] [place], [place] [address]Dr. Swathi Reis CBC AUTO DIFFon 01-09-2022 BASO # 0.1 103/ul Normal 0.0-0.1 [facility] Comment on above: Performed By: #### C BC ####[facility] Obgenevqki[address] [place], [place] [address]Dr. Swathi Reis Basophils/100 WBC (Bld) 0.6 % Normal 0.2-2.0 [facility] Comment on above: Performed By: #### C BC ####[facility] Jeobxvoccw[address] [place], [place] [address]Dr. Swathi Reis EO # 0.2 103/ul Normal 0.0-0.7 [facility] Comment on above: Performed By: #### C BC ####[facility] Vtpvxujner242[address] [place], [place] [address]Dr. Swathi Reis Eosinophils/100 WBC (Bld) 2.7 % Normal 0.9-7.0 [facility] Comment on above: Performed By: #### C BC ####[facility] Migfpbtgoh[address] [place], [place] [address]Dr. Swathi Reis Erythrocyte distribution width (RBC) [Ratio] 13.2 % Normal 11.0-15.0 [facility] Comment on above: Performed By: #### C BC ####[facility] Knpqkqbfux[address] [place] [address]Dr. Swathi Reis Hematocrit (Bld) [Volume fraction] 39.7 % Normal 36.0-48.0 [facility] Comment on above: Performed By: #### C BC ####[facility] Icqxaxudts[address] [place] [address]Dr. Swathi Reis Hemoglobin (Bld) [Mass/Vol] 12.7 g/dL Normal 12.0-16.0 [facility] Comment on above: Performed By: #### C BC ####[facility] Zichdirvkw[address] [place], [place] [address]Dr. Swathi Reis IG # 0.04 10e3/ul Critically high 0.00-0.03 [facility] Comment on above: Performed By: #### C BC ####[facility] Forytmsuqf[address] [place], [place] [address]Dr. Inessatracy Reis IG % 0.4 % Normal 0.0-0.5 [facility] Comment on above: Performed By: #### C BC ####[facility] Ywdidlkoal[address] [place], [place] [address]Dr. Swathi Chato LYMPH # 1.4 103/ul Normal 1.2-3.8 [facility] Comment on above: Performed By: #### C BC ####[facility] Udjskrpobj[address] [place], [place] [address]Dr. Swathi Chato Lymphocytes/100 WBC (Bld) 15.9 % Critically low 20.5-60.0 [facility] Comment on above: Performed By: #### C BC ####[facility] Ybaknearkq[address] [place], [place] [address]Dr. Inessatracy Reis MANUAL DIFF REQ NO Normal [facility] Comment on above: Performed By: #### C BC ####[facility] [address]ayopzamul[address] [place] [address]Dr. Swathi Chato MCH (RBC) [Entitic mass] 30.0 pg Normal 26.7-34.0 [facility] Comment on above: Performed By: #### C BC ####[facility] Hrzbrukiqm[address] [place] [id number]. Swathi Chato MCHC (RBC) [Mass/Vol] 32.0 g/dL Normal 29.9-35.2 [facility] Comment on above: Performed By: #### C BC ####[facility] Uglebwawwa[address] [place] [id number]. Swathi Chato MCV (RBC) [Entitic vol] 93.9 fL Normal 81.0-99.0 [facility] Comment on above: Performed By: #### C BC ####[facility] Phtjtmuukw6[address] [place] [id number]. Inessatracy Chato MONO # 0.9 103/ul Critically high 0.3-0.8 [facility] Comment on above: Performed By: #### C BC ####[facility] Pjlgiefkez[address] [place], [place] [address]Dr. Swathi Reis Monocytes/100 WBC (Bld) 9.7 % Normal 1.7-12.0 [facility] Comment on above: Performed By: #### C BC ####[facility] [address] [place], [place] [address]Dr. Swathi Chato NEUT # 6.3 103/ul Normal 1.4-6.5 [facility] Comment on above: Performed By: #### C BC ####[facility] Dxiamxbysg[address] [place], [place] [address]Dr. Swathi Reis Neutrophils/100 WBC (Bld) 70.7 % Normal 43.0-75.0 [facility] Comment on above: Performed By: #### C BC ####[facility] Qcl[address]jvjyyl[address] [place], [place] [address]Dr. Swathi Reis Platelet mean volume (Bld) [Entitic vol] 10.7 fL Normal 9.5-13.5 [facility] Comment on above: Performed By: #### C BC ####[facility] Qbentxmndg[address] [place], [place] [address]Dr. Swathi Reis PLT 269 103/ul Normal 150-450 [facility] Comment on above: Performed By: #### C BC ####[facility] Pxcqsifskv[address] [place] [id number]. Swathi Reis RBC 4.23 106/ul Normal 4.20-5.40 [facility] Comment on above: Performed By: #### C BC ####[facility] Mvbhkiitll[address] [place] [phone]. Swathi Reis WBC 8.9 103/ul Normal 4.0-11.0 [facility] Comment on above: Performed By: #### C BC ####[facility] Wwifccfjwp5[address] [place] [id number]. Swathi Reis FREE T3on 01-09-2022 FREE T3 2.19 pg/mlL Critically low 2.77-5.27 [facility] Comment on above: Performed By: #### T SH, T4, FT3, LIPID, CMP ####[facility] [address]ufrrxfz[address] [place] [address]Dr. Swathi Reis GLYCOHEMOGLOBIN A1Con 2021 ADA RECOMMENDATION ADA THERAPEUTIC TARG ET 6.0 - 7.0 ACTION SUGGESTED > 7.0 Normal [facility] Comment on above: Performed By: #### A 1C ####[facility] Zhtywtmfjj[address] [place] [address]Dr. Swathi Reis Glucose [Mass/Vol] 137 mg/dL Normal [facility] Comment on above: Performed By: #### A 1C ####[facility] Vdsseomaym[address] [place] [address]Dr. Swathi Reis HbA1c (Bld) [Mass fraction] 6.4 % Critically high <=6.0 [facility] Comment on above: Performed By: #### A 1C ####[facility] Gdiwunxpxu[address] [place] [address]Dr. Swathi Reis LIPID PROFILEon 01-09-2022 CHOL-HDL RATIO NORM SEE BELOW Normal [facility] Comment on above: Result Comment: 3.3 - 4.4 LOW RISK 4.4 - 7.1 AVERAGE RISK 7.1 - 11.0 MODERATE RISK >11.0 HIGH RISK Performed By: #### T SH, T4, FT3, LIPID, CMP ####[facility] Qkuijlzosp[address] [place] [id number]. Swathi Reis Cholesterol [Mass/Vol] 238 mg/dL Critically high <=200 [facility] Comment on above: Performed By: #### T SH, T4, FT3, LIPID, CMP ####[facility] Dtjketvxwg64[address] [place] [address]Dr. Swathi Reis Cholesterol in HDL [Mass/Vol] 95 mg/dL Critically high 40-60 [facility] Comment on above: Performed By: #### T SH, T4, FT3, LIPID, CMP ####[facility] Qwezrmytdw1603 [place] [address]Dr. Swathi Reis Cholesterol in LDL [Mass/Vol] 121.0 mg/dL Normal [facility] Comment on above: Performed By: #### T SH, T4, FT3, LIPID, CMP ####[facility] Ebwippoohp[address] [place] [address]Dr. Swathi Reis Cholesterol.total/Ch olesterol in HDL [Mass ratio] 2.5 {ratio} Normal [facility] Comment on above: Performed By: #### T SH, T4, FT3, LIPID, CMP ####[facility] [address]ndgwksk[address] [place] [address]Dr. Swathi Reis HDL NORMAL > or = 60 mg/dl - LO W CARDIOVASCULAR RISK <40 mg/dl - HIGH CARDIOVASCULAR RISK Normal [facility] Comment on above: Performed By: #### T SH, T4, FT3, LIPID, CMP ####[facility] Fdesttqqyo37[address] [place] [address]Dr. Swathi Reis LDL CALC NORMAL SEE BELOW Normal [facility] Comment on above: Result Comment: <100 mg/dl OPTIMAL 100 - 129 mg/dl NEAR OR ABOVE OPTIMAL 130 - 159 mg/dl BORDERLINE HIGH 160 - 189 mg/dl HIGH >190 mg/dl VERY HIGH Performed By: #### T SH, T4, FT3, LIPID, CMP ####[facility] Ymwrzvhwla[address] [place] [address]Dr. Swathi Reis Triglyceride [Mass/Vol] 110 mg/dL Normal <=150 [facility] Comment on above: Performed By: #### T SH, T4, FT3, LIPID, CMP ####[facility] Rqhtgelogf[address] [place] [address]Dr. Swathi Reis VLDL CALC 22.0 mg/dL Normal [facility] Comment on above: Performed By: #### T SH, T4, FT3, LIPID, CMP ####[facility] Qykawdutqh25[address] [place] [address]Dr. Swathi Reis PROF 14(COMP METB)on 022 Albumin [Mass/Vol] 3.5 g/dL Normal 3.4-5.0 [facility] Comment on above: Performed By: #### T SH, T4, FT3, LIPID, CMP ####[facility] Jcddbdgggs69[address] [place] [address]Dr. Swathi Reis Albumin/Globulin [Mass ratio] 0.9 {ratio} Normal [facility] Comment on above: Performed By: #### T SH, T4, FT3, LIPID, CMP ####[facility] Vsevyujgoq6[address] [place] [address]Dr. Swathi Reis ALP [Catalytic activity/Vol] 112 U/L Normal 46-116 [facility] Comment on above: Performed By: #### T SH, T4, FT3, LIPID, CMP ####[facility] Ryvyynlezo[address] [place] [address]Dr. Swathi Reis ALT [Catalytic activity/Vol] 14 U/L Normal 14-59 [facility] Comment on above: Performed By: #### T SH, T4, FT3, LIPID, CMP ####[facility] Xzlrnrspld7232 [place] [address]Dr. Swathi Reis Anion gap [Moles/Vol] 10.4 mmol/L Normal [facility] Comment on above: Performed By: #### T SH, T4, FT3, LIPID, CMP ####[facility] Fstazzpidu8373 [place] [address]Dr. Swathi eRis AST [Catalytic activity/Vol] 18 U/L Normal 15-37 [facility] Comment on above: Performed By: #### T SH, T4, FT3, LIPID, CMP ####[facility] Itawjtmavs0145 [place] [address]Dr. Swathi Reis Bilirubin [Mass/Vol] 0.6 mg/dL Normal 0.2-1.3 [facility] Comment on above: Performed By: #### T SH, T4, FT3, LIPID, CMP ####[facility] Mmeftxplao[address] [place], [place] [address]Dr. Swathi Reis Calcium [Mass/Vol] 9.4 mg/dL Normal 8.5-10.1 [facility] Comment on above: Performed By: #### T SH, T4, FT3, LIPID, CMP ####[facility] Nlhzqovaxz[address] [place], [place] [address]Dr. Swathi Reis Chloride [Moles/Vol] 101 mmol/L Normal 98-107 [facility] Comment on above: Performed By: #### T SH, T4, FT3, LIPID, CMP ####[facility] Lbdumoivca[address] [place], [place] [address]Dr. Swathi Reis CO2 [Moles/Vol] 33.2 mmol/L Critically high 22.0-30.0 [facility] Comment on above: Performed By: #### T SH, T4, FT3, LIPID, CMP ####[facility] Ectidqkqwy[address] [place], [place] [address]Dr. Swathi Reis Creatinine [Mass/Vol] 1.13 mg/dL Critically high 0.52-1.04 [facility] Comment on above: Performed By: #### T SH, T4, FT3, LIPID, CMP ####[facility] Ckbdzhpavc[address] [place], [place] [address]Dr. Swathi Reis EGFR-AF CROATIAN 57 mL/min/1.73m2 Critically low >=60 [facility] Comment on above: Performed By: #### T SH, T4, FT3, LIPID, CMP ####[facility] Hnhkjegdmd[address] [place], [place] [address]Dr. Swathi Reis EGFR-NON AF CROATIAN 47 mL/min/1.73m2 Critically low >=60 [facility] Comment on above: Performed By: #### T SH, T4, FT3, LIPID, CMP ####[facility] Sqmcwnuewn6[address] [place] [address]Dr. Swathi Reis Globulin (S) [Mass/Vol] 4.1 g/dL Normal [facility] Comment on above: Performed By: #### T SH, T4, FT3, LIPID, CMP ####[facility] Cqtsqwucgt8441 [place] [address]Dr. Swathi Reis Glucose [Mass/Vol] 144 mg/dL Critically high 74-106 [facility] Comment on above: Performed By: #### T SH, T4, FT3, LIPID, CMP ####[facility] [address]tshewndjw[address] [place], [place] [address]Dr. Swathi Reis Potassium [Moles/Vol] 3.6 mmol/L Normal 3.4-5.0 [facility] Comment on above: Performed By: #### T SH, T4, FT3, LIPID, CMP ####[facility] Woopxstybp[address] [place], [place] [address]Dr. Swathi Reis Protein [Mass/Vol] 7.6 g/dL Normal 6.1-8.2 [facility] Comment on above: Performed By: #### T SH, T4, FT3, LIPID, CMP ####[facility] Jixpxerhis[address] [place] [address]Dr. Swathi Reis Sodium [Moles/Vol] 141 mmol/L Normal 137-145 [facility] Comment on above: Performed By: #### T SH, T4, FT3, LIPID, CMP ####[facility] Lzonmkgqoe5552 [place] [address]Dr. Swathi Reis Urea nitrogen [Mass/Vol] 22.0 mg/dL Critically high 7.0-18.0 [facility] Comment on above: Performed By: #### T SH, T4, FT3, LIPID, CMP ####[facility] Eerhyfqepu36[address] [place] [address]Dr. Swathi Reis Urea nitrogen/Creatinine [Mass ratio] 19.5 mg/mg Normal [facility] Comment on above: Performed By: #### T SH, T4, FT3, LIPID, CMP ####[facility] Lfqccgdoub[address] [place] [address]Dr. Swathi Reis T4on 01-09-2022 T4 [Mass/Vol] 8.80 ug/dL Normal 5.53-11.00 [facility] Comment on above: Performed By: #### T SH, T4, FT3, LIPID, CMP ####[facility] Jcqls[address]wnvk[address] [place], [place] [address]Dr. Swathi Reis TSHon 01-09-2022 TSH 3.176 uIU/mL Normal 0.470-4.680 [facility] Comment on above: Performed By: #### T SH, T4, FT3, LIPID, CMP ####[facility] Octdrkdthr[address] [place], [place] [address]Dr. Inessatracy Reis TSH RANGE SEE BELOW Normal [facility] Comment on above: Result Comment: <0.3 4 UIU/ml HYPERTHYROID 0.34-5.60 UIU/ml EUTHYROID >5.60 UIU/ml HYPOTHYROID Performed By: #### T SH, T4, FT3, LIPID, CMP ####[facility] [address]mjapvcpgz[address] [place], [place] [address]Dr. Swathi Reis VITAMIN D 25 OHon 01-09-2022 VIT D 25-OH 64.4 ng/mL Normal [facility] Comment on above: Performed By: #### V ITAD ####[facility] [address]xndcwsvus[address] [place], [place] [address]Dr. Swathi Reis VIT D RANGES SEE BELOW Normal [facility] Comment on above: Result Comment: <20 ng/mL Vit D deficient 20 - <30 ng/mL Vit D insufficient 30 - 100 ng/mL Vit D sufficient >100 ng/mL Potential Toxicity Performed By: #### V ITAD ####[facility] [address]uch[address]wgj[address] [place], [place] [address]Dr. Swathi Reis MG MAMM DIAGNOSTIC 3D GISELE CA Don 01-05-2022 MG MAMM DIAGNOSTIC 3D GISELE CAD Normal [facility] CT head/brain wo conon 12-27 CT head/brain wo con [facility] [place] [address] [place] [address] CT Scan Report Signed Patient: Andrew Barros MR#: [id number] : 1945 Acct:[id number] Age/Sex: 76 / F ADM Date: 12/27/21 Loc: CT Room: Type: [facility] Attending Dr: Brayden Hernandez MD Ordering Provider: Brayden Hernandez MD Date of Service: 12/27/21 CT/CT head/brain wo con: I61.0 Copies to: Brayden Hernandez MD CT head 12/27/2021. CLINICAL DATA: Follow-up intracranial hemorrhage. TECHNIQUE: CT of the head was performed without contrast. This CT exam was performed using one or more of the following dose reduction techniques: Automated exposure control, adjustment of the mA and/or kV according to patient size, or use of iterative reconstruction technique. COMPARISON: 11/17/2021. FINDINGS: There is redemonstration of parenchymal volume loss and chronic microvascular ischemic changes. There is a 1.8 x 1.5 x 1.8 cm focus of decreased attenuation in the former location of the intracerebral hematoma seen in the right temporal lobe at the time of the prior exam. This finding probably represents developing encephalomalacia. No new intracranial hemorrhage is identified. No intracranial mass or mass effect is seen. No abnormal extra-axial fluid collection is visualized. The imaged paranasal sinuses and the mastoids appear unremarkable. CT/CT head/brain wo con IMPRESSION: 1. Parenchymal volume loss and chronic microvascular ischemic changes. 2. Focus of decreased attenuation in the former location of the intracerebral hematoma seen in the right temporal lobe 11/17/2021, probably developing encephalomalacia. 3. No new intracranial abnormality. Impression dictated by: Tex Cameron Jr., M.D.12/27/2021 1:17 PM Dictation Location: [place] [address] Transcribed By: [facility] 12/27/21 1317 Dictated By: Tex Cameron Jr, MD 12/27/21 1310 Signed By: 12/27/21 131 Normal [facility] FRESH FROZ PLASMAon 11-24-19 FRESH FROZ PLASMA Normal [facility] Comment on above: Performed By: #### F ####[facility] Sc[address]zzyjlk[address]504 [place], [place] [address] Reis CT head/brain wo conon 11-17 CT head/brain wo con [facility] [place] [address] [place] [id number] Scan Report Signed Patient: Andrew Barros MR#: [id number] : 1945 Acct:[id number] Age/Sex: 76 / F ADM Date: 11/17/21 Loc: CT Room: Type: [facility] Attending Dr: Brayden Hernandez MD Ordering Provider: Brayden Hernandez MD Date of Service: 11/17/21 CT/CT head/brain wo con: [id number] Copies to: Brayden Hernandez MD CT BRAIN WITHOUT CONTRAST COMPARISON: 11/10/2021 CLINICAL DATA: Follow-up intracranial hemorrhage. Hypertension. Contiguous axial unenhanced images were obtained through the brain. This CT exam was performed using one or more following dose reduction techniques: Automated exposure control, adjustment of the mA and/or kV according to patient size, or use of iterative reconstruction technique. There is generalized atrophy. The ventricles are within normal limits for size and position. There is mild to moderate white matter hypodensity compatible with chronic microvascular disease. There is also left basal ganglia lacunar infarct. Intraparenchymal hematoma is again visualized in the right temporal/insular region. The margins are more indistinct and the area is slightly smaller in size. There is mild surrounding edema. There is continued mass effect the sylvian fissure. There is no new hemorrhage. No extra-axial collections are seen. The imaged right maxillary sinus shows mild mucosal thickening. CT/CT head/brain wo con IMPRESSION: ATROPHY AND CHRONIC MICROVASCULAR DISEASE. IMPROVING RIGHT INTRAPARENCHYMAL HEMATOMA. THERE IS STILL RESIDUAL EFFACEMENT OF THE SYLVIAN FISSURE. NO NEW ABNORMALITIES. Impression dictated by: Henny Mckeon M.D.11/17/2021 1:35 PM Dictation Location: [place] [address] Transcribed By: SOLOMON 11/17/21 1330 Dictated By: Henny Mckeon MD 11/17/21 1330 Signed By: 11/17/21 1335 [facility] Basic Metabolic Panelon 10-24 Calcium [Mass/Vol] 8.9 mg/dL Normal 8.2-10.2 [facility] Comment on above: Performed By: #### P T #### [facility] [address] [place] [id number] [facility] Chloride [Moles/Vol] 94 mmol/L Low 95-114 [facility] Comment on above: Performed By: #### P T #### [facility] [address] CO2 [Moles/Vol] 22.6 mmol/L Normal 22.0-30.0 [facility] Comment on above: Performed By: #### P T #### [address] Creatinine [Mass/Vol] 1.38 mg/dL High 0.44-1.03 [facility] Comment on above: Performed By: #### P T #### [address] Creatinine Clr Calc Pharmacy 29.48 [facility] Comment on above: Result Comment: PERF ORMED BY: [place] [address] PATHOLOGIST DIRECTOR OF ORTHOPEDICS ADRIAN ROBERTSON M.D. Performed By: #### P T #### [address] Estimated GFR ( Rafaela 45 [facility] Comment on above: Result Comment: GFR estimated reference range: According to KDOQI guidelines, <60 ml/min/1.73m2 is sufficient to diagnose a patient with chronic kidney disease. Performed By: #### P T #### [place] [id number] [place] Estimated GFR (Non- Am 37 [facility] Comment on above: Performed By: #### P T #### [place] [address] [place] Glucose [Mass/Vol] 297 mg/dL High 70-100 [facility] Comment on above: Result Comment: Quail om Glucose Reference Range is dependent on time and content of last meal. Glucose of more than 200 mg/dL in a nonstressed, ambulatory subject supports the diagnosis of Diabetes Mellitus. ADA recommended reference range Performed By: #### P T #### [facility] [address] [place] [id number] [place] Potassium [Moles/Vol] 3.7 mmol/L Normal 3.5-5.1 [facility] Comment on above: Performed By: #### P T #### [facility] [address] [place] [address] [place] Sodium [Moles/Vol] 132 mmol/L Low 136-146 [facility] Comment on above: Performed By: #### P T #### [facility] [address] [place] [address] [place] Urea nitrogen [Mass/Vol] 19 mg/dL Normal 9-23 [facility] Comment on above: Performed By: #### P T #### [facility] [address] [place] [id number] [place] Creatinine and Glomerular fi ltration rate.predicted panel (S/P/Bld)Ordered By: Shaka Echavarria on 11-11-2021 Creatinine [Mass/Vol] 1.38 mg/dL 0.44-1.03 [facility] Estimated glomerular filtrat ion rate (GFR) non- AmericanOrdered By: Shaka Echavarria on 11-11-2021 GFR/1.73 sq M.predicted among non-blacks MDRD (S/P/Bld) [Vol rate/Area] 37 mL/Min [facility] Glucose Glucometer (BldC) [M ass/Vol]Ordered By: Shaka Echaavrria on 11-11-2021 Glucose [Mass/Vol] 233 mg/dL [facility] Comment on above: Random Glucose Refer ence Range is dependent on time and content of last meal. Glucose of more than 200 mg/dL in a nonstressed, ambulatory subject supports the diagnosis of Diabetes Mellitus. Glucose Poct Glucometerson 0 11-11-2021 Commemt1 Glu2: Cleaned Meter Normal [facility] Comment on above: Result Comment: PERF ORMED BY: [place] [address] PATHOLOGIST DIRECTOR OF ORTHOPEDICS ADRIAN ROBERTSON M.D. Performed By: #### P T #### [facility] [address] [place] [address] Glucose [Mass/Vol] 233 mg/dL Normal [facility] Comment on above: Result Comment: Quail om Glucose Reference Range is dependent on time and content of last meal. Glucose of more than 200 mg/dL in a nonstressed, ambulatory subject supports the diagnosis of Diabetes Mellitus. Performed By: #### P T #### [facility] [address] [place] [address] Commemt1 Glu2: Cleaned Meter [facility] Comment on above: Result Comment: PERF ORMED BY: [place] [address] PATHOLOGIST DIRECTOR OF ORTHOPEDICS ADRIAN ROBERTSON M.D. Performed By: #### P T #### [address] Glucose [Mass/Vol] 127 mg/dL Normal [facility] Comment on above: Result Comment: Quail om Glucose Reference Range is dependent on time and content of last meal. Glucose of more than 200 mg/dL in a nonstressed, ambulatory subject supports the diagnosis of Diabetes Mellitus. Performed By: #### P T #### [facility] [address] [place] [address] No Panel InformationOrdered By: Shaka Echavarria on 11-11-2021 Bedside Glucose Comment Glu2: cleaned meter [facility] Estimated GFR () 45 mL/Min [facility] Comment on above: GFR estimated refere nce range: According to KDOQI guidelines, <60 ml/min/1.73m2 is sufficient to diagnose a patient with chronic kidney disease. Pharmacy Creatinine Clearance (Chem 29.48 [facility] Serum or plasma calcium missy urement (mass/volume)Ordered By: Shaka Echavarria on 11-11-2021 Calcium [Mass/Vol] 8.9 mg/dL 8.2-10.2 [facility] Serum or plasma chloride ken surement (moles/volume)Ordered By: Shaka Echavarria on 11-11-2021 Chloride [Moles/Vol] 94 mmol/L 95-114 [facility] Serum or plasma glucose missy urement (mass/volume)Ordered By: Shaka Echavarria on 11-11-2021 Glucose [Mass/Vol] 297 mg/dL 70-100 [facility] Comment on above: Delta: 179 on -[id number] recommended reference rangeRandom Glucose Reference Range is dependent on time and content of last meal. Glucose of more than 200 mg/dL in a nonstressed, ambulatory subject supports the diagnosis of Diabetes Mellitus. Serum or plasma potassium me asurement (moles/volume)Ordered By: Shaka Echavarria on 11-11-2021 Potassium [Moles/Vol] 3.7 mmol/L 3.5-5.1 [facility] Serum or plasma sodium measu rement (moles/volume)Ordered By: Shaka Echavarria on 11-11-2021 Sodium [Moles/Vol] 132 mmol/L 136-146 [facility] Serum or plasma total carbon dioxide measurement (moles/volume)Ordered By: Shaka Echavarria on 11-11-2021 CO2 [Moles/Vol] 22.6 mmol/L 22.0-30.0 [facility] Serum or plasma urea nitroge n measurement (mass/volume)Ordered By: Shaka Echavarria on 11-11-2021 Urea nitrogen [Mass/Vol] 19 mg/dL 9-23 [facility] Basic Metabolic Panelon 10-24 Calcium [Mass/Vol] 8.9 mg/dL Normal 8.2-10.2 [facility] Comment on above: Performed By: #### B MP, PT, CBC #### [facility] [address] Chloride [Moles/Vol] 96 mmol/L Normal 95-114 [facility] Comment on above: Performed By: #### B MP, PT, CBC #### [facility] [address] CO2 [Moles/Vol] 29.6 mmol/L Normal 22.0-30.0 [facility] Comment on above: Performed By: #### B MP, PT, CBC #### [address] Creatinine [Mass/Vol] 0.89 mg/dL Normal 0.44-1.03 [facility] Comment on above: Performed By: #### B MP, PT, CBC #### [address] Creatinine Clr Calc Pharmacy 45.71 [facility] Comment on above: Result Comment: PERF ORMED BY: [place] [address] PATHOLOGIST DIRECTOR OF ORTHOPEDICS ADRIAN ROBERTSON M.D. Performed By: #### B MP, PT, CBC #### [address] Estimated GFR ( Rafaela > 60 [facility] Comment on above: Result Comment: GFR estimated reference range: According to KDOQI guidelines, <60 ml/min/1.73m2 is sufficient to diagnose a patient with chronic kidney disease. Performed By: #### B MP, PT, CBC #### [address] Estimated GFR (Non- Am > 60 [facility] Comment on above: Performed By: #### B MP, PT, CBC #### [address] Glucose [Mass/Vol] 179 mg/dL High 70-100 [facility] Comment on above: Result Comment: Quail om Glucose Reference Range is dependent on time and content of last meal. Glucose of more than 200 mg/dL in a nonstressed, ambulatory subject supports the diagnosis of Diabetes Mellitus. ADA recommended reference range Performed By: #### B MP, PT, CBC #### [address] Potassium [Moles/Vol] 3.1 mmol/L Low 3.5-5.1 [facility] Comment on above: Performed By: #### B MP, PT, CBC #### [facility] [address] [place] [address] [place] Sodium [Moles/Vol] 137 mmol/L Normal 136-146 [facility] Comment on above: Performed By: #### B MP, PT, CBC #### [facility] [address] Urea nitrogen [Mass/Vol] 10 mg/dL Normal 9-23 [facility] Comment on above: Performed By: #### B MP, PT, CBC #### [facility] [address] [place] [address] [place] Basophils Auto (Bld) [#/Vol] Ordered By: Salma Cortes on 11-10-2021 Basophils (Bld) [#/Vol] 0.0 10*3/uL 0.0-0.2 [facility] Basophils/100 WBC Auto (Bld) Ordered By: Salma Cortes on 11-10-2021 Basophils/100 WBC (Bld) 0.2 % [facility] Blood hemoglobin measurement (mass/volume)Ordered By: Salma Cortes on 11-10-2021 Hemoglobin (Bld) [Mass/Vol] 13.2 g/dL 11.8-15.4 [facility] Blood leukocytes automated c ount (number/volume)Ordered By: Salma Cortes on 11-10-2021 WBC (Bld) [#/Vol] 10.7 10*3/uL 4.5-11.0 [facility] CT head/brain wo conon 11-10 CT head/brain wo con [facility] [place] [address] [place] [address] CT Scan Report Signed Patient: Andrew Barros MR#: [id number] : 1945 Acct:[id number] Age/Sex: 76 / F ADM Date: 11/09/21 Loc: Room: [address] [place] [address] Type: ADM IN Attending Dr: Shaka Echavarria MD Ordering Provider: Salma Cortes MD Date of Service: 11/10/21 CT/CT head/brain wo con: BLEED Copies to: MD Salma Patel MD CT head/brain wo con 11/10/2021 5:25 AM SIGNS AND SYMPTOMS: Follow-up intracranial hemorrhage TECHNIQUE:Multi-detector CT axial slices of the brain were obtained without IV contrast. CT was performed with one or more of the following dose reduction techniques: Automated exposure control, adjustment of the mA and/or kV according to patient size, or use of iterative reconstruction technique. COMPARISON: 11/09/2021 FINDINGS: There is no shift of the midline structures or evidence of acute ischemia. There is an intraparenchymal hemorrhage along the right temporal and insular region measuring up to 2.9 x 2.2 cm in greatest dimension with surrounding vasogenic edema. The hemorrhage is unchanged. There is only slightly more vasogenic edema when compared to the prior exam. This causes mild effacement of the right sylvian fissure without shift of the midline structures. Extensive periventricular white matter hypoattenuation is noted similar to the prior exam suggesting chronic microvascular ischemic change. There is also mild diffuse age related cortical atrophy. The ventricular system is normal in size. The brainstem and the cerebellum are unremarkable. The visualized intraorbital contents and the infratemporal soft tissues show no acute abnormality. There is mucosal thickening in the right maxillary sinus. There is under pneumatization of the frontal sinuses which is a normal variant. The osseous structures in the skull base and the calvarium show no abnormality. CT/CT head/brain wo con IMPRESSION: Unchanged intraparenchymal hemorrhage along the right temporal and insular region with similar effacement of the right sylvian fissure. Slight interval increase in surrounding vasogenic edema. Chronic age-related neurodegenerative changes are redemonstrated. Impression dictated by: Trina Watts M.D.11/10/2021 8:43 AM Dictation Location: [place] [address] Transcribed By: [facility] 11/10/21842 Dictated By: Trina Watts II, MD 11/10/2140 Signed By: 11/10/21842 [facility] Complete Blood Count Auto Di ffon 11-10-2021 Basophils (Bld) [#/Vol] 0.0 10*3/uL Normal 0.0-0.2 [facility] Comment on above: Result Comment: PERF ORMED BY: [place] [address] PATHOLOGIST DIRECTOR OF ORTHOPEDICS ADRIAN ROBERTSON M.D. Performed By: #### B MP, PT, CBC #### [facility] [address] [place] [address] [place] Basophils/100 WBC (Bld) 0.2 % Normal . [facility] Comment on above: Performed By: #### B MP, PT, CBC #### [facility] [address] [place] [address] [place] Eosinophils (Bld) [#/Vol] 0.0 10*3/uL Normal 0.0-0.45 [facility] Comment on above: Performed By: #### B MP, PT, CBC #### [facility] [address] [place] [address] [place] Eosinophils/100 WBC (Bld) 0.1 % Normal . [facility] Comment on above: Performed By: #### B MP, PT, CBC #### [facility] [address] [place] [address] [place] Erythrocyte distribution width (RBC) [Ratio] 13.8 % Normal 11.9-15.3 [facility] Comment on above: Performed By: #### B MP, PT, CBC #### [facility] [address] [place] [address] [place] Hematocrit (Bld) [Volume fraction] 39.1 % Normal 34.0-46.4 [facility] Comment on above: Performed By: #### B MP, PT, CBC #### [facility] [address] [place] [address] [place] Hemoglobin (Bld) [Mass/Vol] 13.2 g/dL Normal 11.8-15.4 [facility] Comment on above: Performed By: #### B MP, PT, CBC #### [facility] [address] [place] [address] [place] Lymphocytes (Bld) [#/Vol] 1.3 10*3/uL Normal 1.00-4.8 [facility] Comment on above: Performed By: #### B MP, PT, CBC #### [facility] [address] [place] [address] [place] Lymphocytes/100 WBC (Bld) 12.0 % Normal . [facility] Comment on above: Performed By: #### B MP, PT, CBC #### [facility] [address] MCH (RBC) [Entitic mass] 30.4 pg Normal 24.7-34.3 [facility] Comment on above: Performed By: #### B MP, PT, CBC #### [facility] [address] MCV (RBC) [Entitic vol] 90.0 fL Normal 80-100 [facility] Comment on above: Performed By: #### B MP, PT, CBC #### [facility] [address] Mean Corpuscular HGB Conc 33.8 g/dL Normal 32.0-35.0 [facility] Comment on above: Performed By: #### B MP, PT, CBC #### [facility] [address] [place] [address] [place] Monocytes (Bld) [#/Vol] 1.2 10*3/uL High 0.0-0.8 [facility] Comment on above: Performed By: #### B MP, PT, CBC #### [facility] [address] [place] [address] [place] Monocytes/100 WBC (Bld) 10.8 % Normal . [facility] Comment on above: Performed By: #### B MP, PT, CBC #### [facility] [address] [place] [address] [place] Neutrophils (Bld) [#/Vol] 8.2 10*3/uL High 1.8-7.7 [facility] Comment on above: Performed By: #### B MP, PT, CBC #### [facility] [address] [place] [address] [place] Neutrophils/100 WBC (Bld) 76.9 % Normal . [facility] Comment on above: Performed By: #### B MP, PT, CBC #### [facility] [address] Nucleated RBC/100 WBC (Bld) [Ratio] 0.1 % Normal 0-0.5 [facility] Comment on above: Performed By: #### B MP, PT, CBC #### [facility] [address] Platelet mean volume (Bld) [Entitic vol] 9.2 fL Normal 6.3-10.7 [facility] Comment on above: Performed By: #### B MP, PT, CBC #### [address] Platelets (Bld) [#/Vol] 261 10*3/uL Normal 150-450 [facility] Comment on above: Performed By: #### B MP, PT, CBC #### [address] RBC (Bld) [#/Vol] 4.35 10*6/uL Normal 3.60-5.00 [facility] Comment on above: Performed By: #### B MP, PT, CBC #### [address] WBC (Bld) [#/Vol] 10.7 10*3/uL Normal 4.5-11.0 [facility] Comment on above: Performed By: #### B MP, PT, CBC #### [address] Eosinophils Auto (Bld) [#/Vo l]Ordered By: Salma Cortes on 11-10-2021 Eosinophils (Bld) [#/Vol] 0.0 10*3/uL 0.0-0.45 [facility] Eosinophils/100 WBC Auto (Bl d)Ordered By: Salma Cortes on 11-10-2021 Eosinophils/100 WBC (Bld) 0.1 % [facility] Erythrocyte distribution wid th Auto (RBC) [Ratio]Ordered By: Salma Cortes on 11-10-2021 Erythrocyte distribution width (RBC) [Ratio] 13.8 % 11.9-15.3 [facility] Glucose Poct Glucometerson 0 11-10-2021 Glucose [Mass/Vol] 183 mg/dL Normal [facility] Comment on above: Result Comment: [facility] Glucose Reference Range is dependent on time and content of last meal. Glucose of more than 200 mg/dL in a nonstressed, ambulatory subject supports the diagnosis of Diabetes Mellitus. PERFORMED BY: [address] [place] [address] PATHOLOGIST DIRECTOR OF ORTHOPEDICS ADRIAN ROBERTSON M.D. Performed By: #### G LULS #### Point of Care testing , Glucose [Mass/Vol] 135 mg/dL Normal [facility] Comment on above: Result Comment: [facility] Glucose Reference Range is dependent on time and content of last meal. Glucose of more than 200 mg/dL in a nonstressed, ambulatory subject supports the diagnosis of Diabetes Mellitus. PERFORMED BY: [address] [place] [address] PATHOLOGIST DIRECTOR OF ORTHOPEDICS ADRIAN ROBERTSON M.D. Performed By: #### G LULS #### Point of Care testing , Glucose [Mass/Vol] 235 mg/dL Normal [facility] Comment on above: Result Comment: [facility] Glucose Reference Range is dependent on time and content of last meal. Glucose of more than 200 mg/dL in a nonstressed, ambulatory subject supports the diagnosis of Diabetes Mellitus. PERFORMED BY: [address] [address] PATHOLOGIST DIRECTOR OF ORTHOPEDICS ADRIAN ROBERTSON M.D. Performed By: #### G LULS #### Point of Care testing , Glucose [Mass/Vol] 110 mg/dL Normal [facility] Comment on above: Result Comment: [facility] Glucose Reference Range is dependent on time and content of last meal. Glucose of more than 200 mg/dL in a nonstressed, ambulatory subject supports the diagnosis of Diabetes Mellitus. PERFORMED BY: [address] [place] [address] PATHOLOGIST DIRECTOR OF ORTHOPEDICS ADRIAN ROBERTSON M.D. Performed By: #### G KIMBERLY #### Point of Care testing , Hematocrit Auto (Bld) [Volum e fraction]Ordered By: Salma Cortes on 11-10-2021 Hematocrit (Bld) [Volume fraction] 39.1 % 34.0-46.4 [facility] Laboratory - CoagulationOrde red By: Salma Cortes on 11-10-2021 PT Coag (PPP) [Time] 12.6 s 9.0-12.9 [facility] Laboratory - Hematology and Cell countsOrdered By: Salma Cortes on 11-10-2021 Nucleated RBC/100 WBC (Bld) [Ratio] 0.1 % 0-0.5 [facility] Lymphocytes Auto (Bld) [#/Vo l]Ordered By: Salma Cortes on 11-10-2021 Lymphocytes (Bld) [#/Vol] 1.3 10*3/uL 1.00-4.8 [facility] Lymphocytes/100 WBC Auto (Bl d)Ordered By: Salma Cortes on 11-10-2021 Lymphocytes/100 WBC (Bld) 12.0 % [facility] MCH Auto (RBC) [Entitic mass ]Ordered By: Salma Cortes on 11-10-2021 MCH (RBC) [Entitic mass] 30.4 pg 24.7-34.3 [facility] MCHC Auto (RBC) [Mass/Vol]Or dered By: Salma Cortes on 11-10-2021 MCHC (RBC) [Mass/Vol] 33.8 g/dL 32.0-35.0 [facility] MCV Auto (RBC) [Entitic vol] Ordered By: Salma Cortes on 11-10-2021 MCV (RBC) [Entitic vol] 90.0 fL 80-100 [facility] Monocytes Auto (Bld) [#/Vol] Ordered By: Salma Cortes on 11-10-2021 Monocytes (Bld) [#/Vol] 1.2 10*3/uL 0.0-0.8 [facility] Monocytes/100 WBC Auto (Bld) Ordered By: Salma Cortes on 11-10-2021 Monocytes/100 WBC (Bld) 10.8 % [facility] Neutrophils Auto (Bld) [#/Vo l]Ordered By: Salma Cortes on 11-10-2021 Neutrophils (Bld) [#/Vol] 8.2 10*3/uL 1.8-7.7 [facility] Neutrophils/100 WBC Auto (Bl d)Ordered By: Salma Cortes on 11-10-2021 Neutrophils/100 WBC (Bld) 76.9 % [facility] Platelet mean volume Auto (B ld) [Entitic vol]Ordered By: Salma Cortes on 11-10-2021 Platelet mean volume (Bld) [Entitic vol] 9.2 fL 6.3-10.7 [facility] Platelet poor plasma interna tional normalized ratio (INR) by coagulation assay (relatOrdered By: Salma Cortes on 11-10-2021 INR Coag (PPP) [Relative time] 1.1 {INR} [facility] Comment on above: INR Therapeutic Rang e A) Pre- and Peroperative OAT started two weeks before surgery. NOT HIP SURGERY: 1.5 - 2.5 HIP SURGERY: 2 - 3B) Primary and secondary prevention of venous THROMBOSIS: 2 - 3C) Active venous thrombosis, pulmonary embolismand prevention of recurrent venous thrombosis: 2 - 3D) Prevention of arterial thromboembolismincluding patients with mechanical heart valves: 3 - 4.5 Platelets Auto (Bld) [#/Vol] Ordered By: Salma Cortes on 11-10-2021 Platelets (Bld) [#/Vol] 261 10*3/uL 150-450 [facility] Prothrombin Time INRon 11-10 INR Coag (PPP) [Relative time] 1.1 {INR} Normal [facility] Comment on above: Result Comment: INR Therapeutic Range A) Pre- and Peroperative OAT started two weeks before surgery. NOT HIP SURGERY: 1.5 - 2.5 HIP SURGERY: 2 - 3 B) Primary and secondary prevention of venous THROMBOSIS: 2 - 3 C) Active venous thrombosis, pulmonary embolism and prevention of recurrent venous thrombosis: 2 - 3 D) Prevention of arterial thromboembolism including patients with mechanical heart valves: 3 - 4.5 PERFORMED BY: [place] [address] PATHOLOGIST DIRECTOR OF ORTHOPEDICS ADRIAN ROBERTSON M.D. Performed By: #### B MP, PT, CBC #### [facility] [address] [place] [address] [facility] PT Coag (PPP) [Time] 12.6 s Normal 9.0-12.9 [facility] Comment on above: Performed By: #### B MP, PT, CBC #### [facility] [address] [place] [address] [facility] INR Coag (PPP) [Relative time] 1.2 {INR} Normal [facility] Comment on above: Order Comment: that no one else will be tiring until 3rd comes in. psw 2013 Result Comment: INR Therapeutic Range A) Pre- and Peroperative OAT started two weeks before surgery. NOT HIP SURGERY: 1.5 - 2.5 HIP SURGERY: 2 - 3 B) Primary and secondary prevention of venous THROMBOSIS: 2 - 3 C) Active venous thrombosis, pulmonary embolism and prevention of recurrent venous thrombosis: 2 - 3 D) Prevention of arterial thromboembolism including patients with mechanical heart valves: 3 - 4.5 PERFORMED BY: [place] [address] PATHOLOGIST DIRECTOR OF ORTHOPEDICS ADRIAN ROBERTSON M.D. Performed By: #### P T #### [facility] [address] [place] [address] [facility] PT Coag (PPP) [Time] 12.9 s Normal 9.0-12.9 [facility] Comment on above: Order Comment: that no one else will be tiring until 3rd comes in. psw 2013 Performed By: #### P T #### [facility] [address] [place] [address] [place] RBC Auto (Bld) [#/Vol]Ordere d By: Salma Cortes on 11-10-2021 RBC (Bld) [#/Vol] 4.35 10*6/uL 3.60-5.00 [facility] BNPon 11-09-2021 Natriuretic peptide B (Bld) [Mass/Vol] 914.0 pg/mL Normal <=1,800.0 [facility] Comment on above: Performed By: #### C MADM, CMP, BNP ####[facility] [id number] [place] [address]Dr. Swathi Reis CARDIAC TRINA ADMITon 022 CK [Catalytic activity/Vol] 50 U/L Normal 30-135 [facility] Comment on above: Performed By: #### C MADM, CMP, BNP ####[facility] [id number] [place] [address]Dr. Swathi Reis CK.MB [Mass/Vol] 1.14 ng/mL Normal <=2.37 [facility] Comment on above: Performed By: #### C MADM, CMP, BNP ####[facility] [address] [place] [address]Dr. Swathi Reis HSTROP 12.8 pg/mL Normal 4.0-35.5 [facility] Comment on above: Result Comment: CUT- OFF POINTS HAVE BEEN ESTABLISHED BASED ON THE FOURTH UNIVERSAL DEFINITIONS OF MYOCARDIALINFARCTION. THE UPPER REFERENCE LIMIT (URL) OF TROPONIN, DEFINED THE 99TH PERCENTILE OFcTnI DISTRIBUTION IN A REFERENCE POPULATION, HAS BEEN CONFIRMED THE DECISION THRESHOLDFOR IA DIAGNOSIS. Performed By: #### C MADM, CMP, BNP ####[facility] [address] [place] [address]Dr. Swathi Reis GUANACO 53.0 ng/mL Normal <=61.5 [facility] Comment on above: Performed By: #### C MADM, CMP, BNP ####[facility] [address]wtdnqns[address] [place] [address]Dr. Swathi Chato CBC AUTO DIFFon 11-09-2021 BASO # 0.0 103/ul Normal 0.0-0.1 [facility] Comment on above: Performed By: #### C BC ####[facility] [address] [place] [address]Dr. Swathi Reis Basophils/100 WBC (Bld) 0.3 % Normal 0.2-2.0 [facility] Comment on above: Performed By: #### C BC ####[facility] Tx[address] [place] [id number]. Swathi Reis EO # 0.0 103/ul Normal 0.0-0.7 [facility] Comment on above: Performed By: #### C BC ####[facility] Xam[address]fi[address]ock[address] [place] [phone]. Swathi Reis Eosinophils/100 WBC (Bld) 0.2 % Critically low 0.9-7.0 [facility] Comment on above: Performed By: #### C BC ####[facility] Tspfrlobrr[address] [place], [place] [address]Dr. Swathi Reis Erythrocyte distribution width (RBC) [Ratio] 13.1 % Normal 11.0-15.0 [facility] Comment on above: Performed By: #### C BC ####[facility] Hhbpamflff[address] [place], [place] [address]Dr. Swathi Reis Hematocrit (Bld) [Volume fraction] 40.8 % Normal 36.0-48.0 [facility] Comment on above: Performed By: #### C BC ####[facility] Exixzbpeoq[address] [place], [place] [address]Dr. Swathi Reis Hemoglobin (Bld) [Mass/Vol] 13.3 g/dL Normal 12.0-16.0 [facility] Comment on above: Performed By: #### C BC ####[facility] Wvjyfkdars[address] [place], [place] [address]Dr. Swathi Reis IG # 0.05 10e3/ul Critically high 0.00-0.03 [facility] Comment on above: Performed By: #### C BC ####[facility] Omvrrkxone[address] [place], [place] [address]Dr. Swathi Reis IG % 0.4 % Normal 0.0-0.5 [facility] Comment on above: Performed By: #### C BC ####[facility] Vttvbqvznz[address] [place], [place] [address]Dr. Swathi Reis LYMPH # 1.0 103/ul Critically low 1.2-3.8 [facility] Comment on above: Performed By: #### C BC ####[facility] Gztakznxav[address] [place] [id number]. Swathi Chato Lymphocytes/100 WBC (Bld) 8.3 % Critically low 20.5-60.0 [facility] Comment on above: Performed By: #### C BC ####[facility] Ghnrlymoqa47[address] [place] [phone]. Swathi Reis MANUAL DIFF REQ NO Normal [facility] Comment on above: Performed By: #### C BC ####[facility] Tjbizjihpr[address] [place] [phone]. Inessatracy Reis MCH (RBC) [Entitic mass] 29.8 pg Normal 26.7-34.0 [facility] Comment on above: Performed By: #### C BC ####[facility] Ggcbbzmjvw[address] [place], [place] [address]Dr. Swathi Reis MCHC (RBC) [Mass/Vol] 32.6 g/dL Normal 29.9-35.2 [facility] Comment on above: Performed By: #### C BC ####[facility] Jhrfcjqmto6[address] [place] [phone]. Swathi Reis MCV (RBC) [Entitic vol] 91.5 fL Normal 81.0-99.0 [facility] Comment on above: Performed By: #### C BC ####[facility] Xddljvlcpk[address] [place], [place] [address]Dr. Swathi Reis MONO # 0.6 103/ul Normal 0.3-0.8 [facility] Comment on above: Performed By: #### C BC ####[facility] Kzmitazvlo[address] [place], [place] [address]Dr. Swathi Reis Monocytes/100 WBC (Bld) 4.9 % Normal 1.7-12.0 [facility] Comment on above: Performed By: #### C BC ####[facility] V[address] [place], [place] [id number]. Swathi Reis NEUT # 10.5 103/ul Critically high 1.4-6.5 [facility] Comment on above: Performed By: #### C BC ####[facility] Fsdayksypb3311 [place], [place] [address]Zp. Swathi Reis Neutrophils/100 WBC (Bld) 85.9 % Critically high 43.0-75.0 [facility] Comment on above: Performed By: #### C BC ####[facility] Hobpeituet3470 [place], [place] [address]Ki. Swathi Reis Platelet mean volume (Bld) [Entitic vol] 10.9 fL Normal 9.5-13.5 [facility] Comment on above: Performed By: #### C BC ####[facility] M[address]wei[address] [place] [phone]. Swathi Reis PLT 290 103/ul Normal 150-450 [facility] Comment on above: Performed By: #### C BC ####[facility] Pfggajpysi14[address] [place] [phone]. Swathi Reis RBC 4.46 106/ul Normal 4.20-5.40 [facility] Comment on above: Performed By: #### C BC ####[facility] Pjbgwqeqtu3988 [place], [place] [address]Qr. Swathi Reis WBC 12.3 103/ul Critically high 4.0-11.0 [facility] Comment on above: Performed By: #### C BC ####[facility] Uflgnlhcrj10[address] [place], [place] [address]Rw. Swathi Reis CT HEAD WO CONon 11-09-2021 CT HEAD WO CON Normal [facility]on 10-24 SARS-CoV-2 (COVID-19) RNA ÓSCAR+probe Ql (Unsp spec) Not detected Normal NOT DETECTED [facility] Comment on above: Result Comment: When diagnostic testing is negative, the possibility of a false negative should be considered inthe context of a patient's recent exposures and the presence of clinical signs and symptomsconsistent with SARS-CoV-2.This test is not yet approved or cleared by the [place] FDA. When there are no FDA-approved or cleared tests available, and other criteria are met, FDA can make tests available under an emergency access mechanism called an Emergency Use Authorization (EUA). The EUA for this test is supported by the [place] of Health and Human Service's declaration that circumstances exist to justify the emergency use of in vitro diagnostics for the detection and/or diagnosis of the virus that causes COVID-19. This EUA will remain in effect for the duration of the COVID-19 declaration justifying emergency of IVDs, unless it is terminated or revoked by the FDA (after which the test may no longer be used). Performed By: #### [facility] ####[facility] Dahenxbnpv7[address] [place], [place] [address]Dr. Swathi Reis ER URINE PROFILEon 2 Bilirubin Ql (U) Negative Normal NEGATIVE [facility] Comment on above: Performed By: #### REYNOLD SOSA ####[facility] Bahjickjlf[address] [place], [place] [address]Dr. Swathi Reis Clarity (U) CLEAR Normal CLEAR [facility] Comment on above: Performed By: #### REYNOLD SOSA ####[facility] Xrsoezzagj[address] [place], [place] [address]Dr. Swathi Reis Color (U) LT. YELLOW Normal YELLOW [facility] Comment on above: Performed By: #### REYNOLD SOSA ####[facility] Ecqniahnkk[address] [place], [place] [address]Dr. Swathi Reis ERUAHD A micrscopic examina tion will be performed if indicated. Normal [facility] Comment on above: Performed By: #### REYNOLD SOSA ####[facility] Ktvbiyutnr[address] [place], [place] [address]Dr. Swathi Reis Glucose Ql (U) Negative Normal NEGATIVE [facility] Comment on above: Performed By: #### ROMEO SOSARO ####[facility] Tgfwzehyph9[address] [place], [place] [address]Dr. Swathi Reis Hemoglobin Ql (U) TRACE-INTACT Abnormal NEGATIVE [facility] Comment on above: Performed By: #### REYNOLD SOSA ####[facility] S[address]auf[address]ogg[address] [place] [address]Dr. Swathi Reis Ketones Ql (U) Negative Normal NEGATIVE [facility] Comment on above: Performed By: #### REYNOLD SOSA ####[facility] D[address]bkxkzbb[address] [place] [address]Dr. Swathi Reis LEUKOCYTES Negative Normal NEGATIVE [facility] Comment on above: Performed By: #### REYNOLD SOSA ####[facility] Kxnttaswve[address] [place], [place] [address]Dr. Swathi Reis Nitrite Ql (U) Negative Normal NEGATIVE [facility] Comment on above: Performed By: #### REYNOLD SOSA ####[facility] Smvlraitdr[address] [place], [place] [address]Dr. Swathi Reis pH (U) 6.0 [pH] Normal 5-9 [facility] Comment on above: Performed By: #### REYNOLD SOSA ####[facility] Kaocfyhjll[address] [place], [place] [address]Dr. Swathi Reis SPEC GRAVITY 1.010 Normal 1.005-<=1.0 25 [facility] Comment on above: Performed By: #### REYNOLD SOSA ####[facility] Pgothrrlbl[address] [place], [place] [address]Dr. Swathi Reis UA PROTEIN TRACE Normal NEGATIVE/ TRACE [facility] Comment on above: Performed By: #### REYNOLD SOSA ####[facility] Kbkinzlryl[address] [place], [place] [address]Dr. Swathi eRis UR MICRO IND INDICATED Normal [facility] Comment on above: Performed By: #### REYNOLD SOSA ####[facility] Yrdtfyknrm[address] [place], [place] [address]Dr. Swathi Reis Urobilinogen Qn (U) 0.2 {Sánchez'U}/dL Normal 0.2 - 1. 0 [facility] Comment on above: Performed By: #### REYNOLD SOSA ####[facility] Eoljqqkmuy[address] [place], [place] [address]Dr. Swathi Reis Glucose Poct Glucometerson 0 11-09-2021 Glucose [Mass/Vol] 178 mg/dL Normal [facility] Comment on above: Result Comment: [facility] Glucose Reference Range is dependent on time and content of last meal. Glucose of more than 200 mg/dL in a nonstressed, ambulatory subject supports the diagnosis of Diabetes Mellitus. PERFORMED BY: [facility] [place]anda [place] [address] PATHOLOGIST DIRECTOR OF ORTHOPEDICS ADRIAN ROBERTSON M.D. Performed By: #### G LULS #### Point of Care testing , PROF 14(COMP METB)on 022 Albumin [Mass/Vol] 3.5 g/dL Normal 3.5-5.0 [facility] Comment on above: Performed By: #### C ROSALINO, CMP, BNP ####[facility] Hzozcrtzvi[address] [place] [address]Dr. Swathi Reis Albumin/Globulin [Mass ratio] 1.0 {ratio} Normal [facility] Comment on above: Performed By: #### C MADM, CMP, BNP ####[facility] Uqpqqvtlhm[address] [place] [address]Dr. Swathi Reis ALP [Catalytic activity/Vol] 93 U/L Normal 38-126 [facility] Comment on above: Performed By: #### C MADM, CMP, BNP ####[facility] Cdlgjfsuqm7[address] [place] [id number]. Swathi Reis ALT [Catalytic activity/Vol] 22 U/L Normal 9-52 [facility] Comment on above: Performed By: #### C MADM, CMP, BNP ####[facility] Kseyteswtb4746 [place] [id number]. Swathi Reis Anion gap [Moles/Vol] 15.4 mmol/L Normal [facility] Comment on above: Performed By: #### C MADM, CMP, BNP ####[facility] Jtylpqqdct2390 [place] [id number]. Swathi Reis AST [Catalytic activity/Vol] 21 U/L Normal 14-36 [facility] Comment on above: Performed By: #### C MADM, CMP, BNP ####[facility] Dqbmstwkfg7940 [place] [address]Dr. Swathi Reis Bilirubin [Mass/Vol] 0.7 mg/dL Normal 0.2-1.3 [facility] Comment on above: Performed By: #### C MADM, CMP, BNP ####[facility] Rtkapzoajk[address] [place] [address]Dr. Swathi Reis Calcium [Mass/Vol] 9.5 mg/dL Normal 8.4-10.2 [facility] Comment on above: Performed By: #### C MADM, CMP, BNP ####[facility] Xekkoqzhkp[address] [place] [address]Dr. Swathi Reis Chloride [Moles/Vol] 99 mmol/L Normal 98-107 [facility] Comment on above: Performed By: #### C MADM, CMP, BNP ####[facility] Fbzlnomjzh[address] [place], [place] [address]Dr. Swathi Reis CO2 [Moles/Vol] 31.0 mmol/L Critically high 22.0-30.0 [facility] Comment on above: Performed By: #### C MADM, CMP, BNP ####[facility] Kxtspsebyw[address] [place], [place] [address]Dr. Swathi Reis Creatinine [Mass/Vol] 1.10 mg/dL Critically high 0.52-1.04 [facility] Comment on above: Performed By: #### C MADM, CMP, BNP ####[facility] Kaxwnqalfq[address] [place], [place] [address]Dr. Swathi Reis EGFR-AF CROATIAN 58 mL/min/1.73m2 Critically low >=60 [facility] Comment on above: Performed By: #### C MADM, CMP, BNP ####[facility] Ccaqqdqzlj[address] [place], [place] [address]Dr. Swathi Reis EGFR-NON AF CROATIAN 48 mL/min/1.73m2 Critically low >=60 [facility] Comment on above: Performed By: #### C MADM, CMP, BNP ####[facility] Jtyyltycbw32[address] [place] [address]Dr. Swathi Reis Globulin (S) [Mass/Vol] 3.5 g/dL Normal [facility] Comment on above: Performed By: #### C MADM, CMP, BNP ####[facility] Ocxpdgrqsg040[address] [place] [address]Dr. Swathi Reis Glucose [Mass/Vol] 203 mg/dL Critically high 74-106 [facility] Comment on above: Performed By: #### C MADM, CMP, BNP ####[facility] Pyvezjjufv5076 [place] [address]Dr. Swathi Reis Potassium [Moles/Vol] 4.4 mmol/L Normal 3.4-5.0 [facility] Comment on above: Performed By: #### C MADM, CMP, BNP ####[facility] Mlhlmybliu5333 [place] [address]Dr. Swathi Reis Protein [Mass/Vol] 7.0 g/dL Normal 6.1-8.2 [facility] Comment on above: Performed By: #### C MADM, CMP, BNP ####[facility] Kvsosdacfj3210 [place] [address]Dr. Swathi Reis Sodium [Moles/Vol] 141 mmol/L Normal 137-145 [facility] Comment on above: Performed By: #### C MADM, CMP, BNP ####[facility] Gvmyfzrbid9767 [place] [address]Dr. Swathi Reis Urea nitrogen [Mass/Vol] 21.0 mg/dL Critically high 7.0-17.0 [facility] Comment on above: Performed By: #### C MADM, CMP, BNP ####[facility] Cakbhxvdrx6[address] [place] [address]Dr. Swathi Reis Urea nitrogen/Creatinine [Mass ratio] 19.1 mg/mg Normal [facility] Comment on above: Performed By: #### C MADM, CMP, BNP ####[facility] Jvcbochjfh4394 [place] [address]Dr. Swathi Reis PROTIMEon 11-09-2021 INR Coag (PPP) [Relative time] 1.09 {INR} Normal [facility] Comment on above: Performed By: #### P T, PTT ####[facility] Bkammtqoig[address] [place], [place] [address]Dr. Swathi Reis INR GUIDELINES SEE BELOW Normal [facility] Comment on above: Result Comment: HARRIETT RED INR: 2.0 - 3.0 CONDITIONS NOT LISTED BELOW 2.5 - 3.5 FOR PROSTHETIC HEART VALVE REPLACEMENT 2.5 - 3.5 RECURRENT THROMBOSIS Performed By: #### P T, PTT ####[facility] Ztobonqhoh[address] [place], [place] [address]Dr. Swathi Reis PT Coag (PPP) [Time] 11.7 s Critically high 9.0-11.6 [facility] Comment on above: Performed By: #### P T, PTT ####[facility] Giaxadfoit[address] [place], [place] [address]Dr. Swathi Reis INR Coag (PPP) [Relative time] 3.45 {INR} Normal [facility] Comment on above: Performed By: #### P TT, PT ####[facility] Rbdpltlhus[address] [place], [place] [address]Dr. Swathi Reis INR GUIDELINES SEE BELOW Normal [facility] Comment on above: Result Comment: HARRIETT RED INR: 2.0 - 3.0 CONDITIONS NOT LISTED BELOW 2.5 - 3.5 FOR PROSTHETIC HEART VALVE REPLACEMENT 2.5 - 3.5 RECURRENT THROMBOSIS Performed By: #### P TT, PT ####[facility] Kexhiblmix9[address] [place], [place] [address]Dr. Swathi Reis PT Coag (PPP) [Time] 34.4 s Critically high 9.0-11.6 [facility] Comment on above: Performed By: #### P TT, PT ####[facility] Vlnqnddtsg[address] [place], [place] [address]Dr. Swathi Reis PTTon 11-09-2021 aPTT Coag (Bld) [Time] 25.9 s Normal 22.3-36.2 [facility] Comment on above: Performed By: #### P T, PTT ####[facility] Iqpmstblxe[address] [place] [address]Dr. Inessatracy Reis aPTT Coag (Bld) [Time] 39.1 s Critically high 22.3-36.2 [facility] Comment on above: Performed By: #### P TT, PT ####[facility] Trorvpxbsb[address] [place], [place] [address]Dr. Swathi Reis TYPE AND SCREENon 11-09-2021 TYPE AND SCREEN Negative Normal [facility] Comment on above: Performed By: #### T NS ####[facility] Gaslzhnhzb[address] [place], [place] [address]Dr. Swathi Reis URINE MICROSCOPIC ONLYon BACTERIA NONE SEEN Normal NONE SEEN [facility] Comment on above: Performed By: #### ROMEO SOSARO ####[facility] Kbizoyddnj[address] [place], [place] [address]Dr. Swathi Reis Bacteria identified Cx Nom (U) NOT INDICATED Normal [facility] Comment on above: Performed By: #### ROMEO SOSARO ####[facility] Uvrtieknux[address] [place], [place] [address]Dr. Swathi Reis CAST NONE SEEN Normal NONE SEEN [facility] Comment on above: Performed By: #### ROMEO SOSARO ####[facility] Klhvhpdsru[address] [place], [place] [address]Dr. Swathi Reis Crystals LM Nom (Urine sed) NONE SEEN Normal NONE SEEN [facility] Comment on above: Performed By: #### ROMEO SOSARO ####[facility] Ibsfojdpzd[address] [place], [place] [address]Dr. Swathi Reis Epithelial cells LM Ql (Urine sed) FEW Abnormal NONE SEEN /RARE [facility] Comment on above: Performed By: #### ROMEO SOSARO ####[facility] Cgehqnhqua[address] [place], [place] [address]Dr. Inessalan Chato MUCOUS NONE SEEN Normal NONE SEEN [facility] Comment on above: Performed By: #### ROMEO SOSARO ####[facility] Lijyqxoppx[address] [place], [place] [address]Dr. Swathi Reis RBC 2-5 Abnormal 0-2 [facility] Comment on above: Performed By: #### REYNOLD SOSA ####[facility] [address]wj[address] [place], [place] [address]Xw. Swathi Reis WBC NONE SEEN Normal NONE SEEN [facility] Comment on above: Performed By: #### REYNOLD SOSA ####[facility] Dhdssizpoe0184 [place], [place] [address]Tp. Swathi Reis XR CHEST 1 Von 11-09-2021 XR CHEST 1 V Normal [facility] Coding Summary.on 09-14-2020 Coding Summary. CODING DATE: 020 FINAL [facility] STATUS: Short-Term Hosp as IP PAYOR: Medicare APC DESCRIPTION 5521 Level 1 Imaging without Contrast 5571 Level 1 Imaging with Contrast 5691 Level 1 Drug Administration 5693 Level 3 Drug Administration 5692 Level 2 Drug Administration 5025 Level 5 Type A ED Visits ADMIT DX: REASON FOR VISIT DX: R06.02 Shortness of breath FINAL DX: PRINCIPAL: I26.99 Other pulmonary embolism without acute cor pulmonale SECONDARY: U07.1 COVID-19 J12.89 Other viral pneumonia PYMT PROC APC STAT DESCRIPTION DOCTOR NAME DATE NOTE: The code number assigned matches the documented diagnosis and / or procedure in the patient's chart. However, the narrative phrase printed from the coding software may appear abbreviated, or result in slightly different terminology. Revised Coded By: Rosetta House Revised Date Saved: 09/14/2020 08:26 am Normal [facility] EMS Documentationon 09-12-20 20 EMS Documentation [id number]:127 Normal [facility] ED Clinical Summaryon 2019 ED Clinical Summary (Inserted Image. Ave ble to display) [address] [address] ED Clinical Summary Person Information Name: ANDREW BARROS/New_Braydon Age: 74 Years : 1945 Sex: Female Language: Polish PCP: Eduardo Sharpe MD Marital Status: Phone: [phone] Visit Id: Visit Reason: Shortness of breath; SOB Speciality: Acuity: 2 Enc Type: Emergency Med Service: Emergency Arrival: 09/09/2020 12:32:39 Discharge: 09/09/2020 23:10:20 LOS: 000 10:38 Checkin: 09/09/2020 12:32:39 Checkout: 09/09/2020 23:10:20 Dispo Type: Short-Term Hosp as IP EVENTS: Event Name Event Status Request Date/Time Start Date/Time Complete Date/Time Arrive Complete 09/09/2020 12:32:39 09/09/2020 12:32:39 09/09/2020 12:32:39 Document Home Meds Request 09/09/2020 12:32:39 Triage Complete 09/09/2020 12:32:39 09/09/2020 12:43:26 09/09/2020 12:43:26 Bed Assign Complete 09/09/2020 12:33:01 09/09/2020 12:33:01 09/09/2020 12:33:01 Dr Exam Complete 09/09/2020 12:33:01 09/09/2020 12:35:24 09/09/2020 12:35:24 RN Exam Complete 09/09/2020 12:33:01 09/09/2020 12:45:24 09/09/2020 12:45:24 Registration Complete 09/09/2020 12:35:24 09/09/2020 14:11:21 09/09/2020 14:11:21 EKG Complete 09/09/2020 12:36:35 09/09/2020 12:50:22 Pending Labs Inlab 09/09/2020 12:36:35 Lab Inlab 09/09/2020 12:36:35 Patient Care Request 09/09/2020 12:36:36 RT Request 09/09/2020 12:36:36 X-Ray Complete 09/09/2020 12:36:36 09/09/2020 12:55:20 09/09/2020 13:09:04 RT Tx/ABG Complete 09/09/2020 12:36:36 09/09/2020 14:52:24 09/09/2020 14:52:24 CT Complete 09/09/2020 12:37:16 09/09/2020 14:55:19 09/09/2020 18:01:05 Patient Care Request 09/09/2020 12:43:27 Patient Isolation Request 09/09/2020 12:43:27 Pending Labs Complete 09/09/2020 13:05:44 09/09/2020 13:05:44 09/09/2020 13:22:00 Lab Complete 09/09/2020 13:05:44 09/09/2020 13:05:44 09/09/2020 13:22:00 Wet Read Complete 09/09/2020 13:09:04 09/09/2020 14:07:45 09/09/2020 14:07:45 Pending Labs Complete 09/09/2020 13:29:11 09/09/2020 13:29:11 09/09/2020 13:31:45 Lab Complete 09/09/2020 13:29:11 09/09/2020 13:29:11 09/09/2020 13:31:45 Pending Labs Complete 09/09/2020 13:29:11 09/09/2020 13:29:11 09/09/2020 13:31:45 Possible Sepsis Request 09/09/2020 13:35:27 Reg Complete Request 09/09/2020 14:11:21 Reg Bed Request Complete 09/09/2020 14:11:21 09/09/2020 14:11:21 09/09/2020 14:11:21 Pending Labs Complete 09/09/2020 14:15:11 09/09/2020 15:05:20 Lab Complete 09/09/2020 14:15:11 09/09/2020 15:05:20 Meds Admin Complete 09/09/2020 14:16:13 09/09/2020 16:15:31 Pending Labs Complete 09/09/2020 15:10:06 09/09/2020 15:10:06 09/09/2020 15:10:07 Meds Admin Request 09/09/2020 16:16:15 Consult Cancel 09/09/2020 17:31:11 09/09/2020 18:20:41 Hospitalist Consult Request 09/09/2020 17:31:11 Meds Admin Request 09/09/2020 18:55:03 Pending Labs Complete 09/09/2020 18:55:03 09/09/2020 19:40:41 Lab Complete 09/09/2020 18:55:03 09/09/2020 19:40:41 Patient Care Request 09/09/2020 18:55:03 Patient Care Request 09/09/2020 18:57:10 Transfer Complete 09/09/2020 18:57:10 09/09/2020 23:10:35 09/09/2020 23:10:35 RT Request 09/09/2020 19:00:45 Pending Labs Complete 09/09/2020 19:27:28 09/09/2020 19:27:28 09/09/2020 19:40:41 Lab Complete 09/09/2020 19:27:28 09/09/2020 19:27:28 09/09/2020 19:40:41 Discharge Complete 09/09/2020 23:10:35 09/09/2020 23:10:35 09/09/2020 23:10:35 ADDRESS: [address] [place] [address] PHYS DOC NOTES: Addendum by Koko Pettit DO on September 09, 2020 18:55:26 EST MEDICAL INFORMATION: Prescriptions Given: Medications to Continue with No Changes Other Medications insulin aspart (NovoLog) 8 Units Subcutaneous every day. nitroglycerin nitroglycerin (nitroglycerin 0.4 mg sublingual Tab) 1 Tablets Sublingual every 5 minutes as needed for chest pain. PATIENT EDUCATION INFORMATION: Instructions: Follow up: DIAGNOSIS: COVID-19; Hypoxemia; Pneumonia Normal [facility] ED Patient Education Noteon 09-10-2020 ED Patient Education Note Normal [facility] ED Patient Summaryon 020 ED Patient Summary (Inserted Image. Ave ble to display) [address] [address] Patient Discharge Instructions Person Information Name: ANDREW BARROS Age: 74 Years Arrival Date: 09/09/2020 12:32:39 Discharge Diagnosis: COVID-19; Hypoxemia; Pneumonia Primary Care Physician: Eduardo Sharpe MD Provider Information Primary Provider: Koko Pettit DO Advanced Development Mgr:None The exam and treatment you received in the Emergency Department were for an urgent problem and are not intended as complete care. It is important that you follow up with a doctor, nurse practitioner, or physician?s family law legal assistant for ongoing care. If your symptoms become worse or you do not improve as expected and you are unable to reach your usual health care provider, you should return to the Emergency Department. We are available 24 hours a day. ANDREW BARROS has been given the following list of patient education materials, prescriptions and follow-up instructions: Follow-up Instructions: In the event that this physician does not participate in your insurance network, please consult with your insurance company to find a nearby participating provider. Patient Education Materials: A MESSAGE TO ALL PATIENTS REGARDING OPIOIDS PRESCRIPTION OPIOIDS: WHAT YOU NEED TO KNOW Prescription opioids can be used to help relieve qxqfstzi-dp-jzlcyh pain and are often prescribed following a surgery or injury, or for certain health conditions. These medications can be an important part of the treatment but also come with serious risks. It is important to work with your healthcare provider to make sure you are getting the safest, most effective care. WHAT ARE THE RISKS AND SIDE EFFECTS OF OPIOID USE? Prescription opioids carry serious risks of addiction and overdose, especially with prolonged use. An opioid overdose, often marked by slowed breathing, can cause sudden . The use of prescription opioids can have a number of side effects as well, even when taken as directed: ? Tolerance?meaning you might need to take more of the medication for the same pain relief ? Physical dependence?meaning you have symptoms of withdrawal when a medication is stopped ? Increased sensitivity to pain ? Constipation ? Nausea, vomiting, and dry mouth ? Sleepiness and dizziness ? Confusion ? Depression ? Low levels of testosterone that can result in lower sex drive, energy, and strength ? Itching and sweating RISKS ARE GREATER WITH: ? History of drug misuse, substance use disorder, or overdose ? Mental health conditions (such as depression or anxiety) ? Sleep apnea ? Older age (65 years and older) ? Avoid alcohol while taking prescription opioids. Also, unless specifically advised by your health care provider, medications to avoid include: ? Benzodiazepines (such as Xanax or Valium) ? Muscle relaxants (such as Soma or Flexeril) ? Hypnotics (such as Ambien or Lunesta) ? Other prescription opioids KNOW YOUR OPTIONS Talk to your health care provider about ways to manage your pain that don?t involve prescription opioids. Some of these options may actually work better and have fewer risks and side effects. Options may include: ? Pain relievers such as acetaminophen, ibuprofen, and naproxen ? Some medication that are also used for depression or seizures ? Physical therapy and exercise ? Cognitive behavioral therapy, a psychological, goal-directed approach, in which patients learn how to modify physical, behavioral, and emotional triggers of pain and stress. IF YOU ARE PRESCRIBED OPIOIDS FOR PAIN: ? Never take opioids in greater amounts or more often than prescribed. ? Follow up with your primary health care provider. o Work together to create a plan on how to manage your pain. o Talk about ways to help manage your pain that don?t involve prescription opioids. o Talk about any and all concerns and side effects. ? Help prevent misuse and abuse o Never sell or share prescription opioids. o Never use another person?s prescription opioids. ? Store prescription opioids in a secure place and out of reach of others (this may include visitors, children, friends, and family). ? Safely dispose of unused prescription opioids: Find your community drug take-back program or your pharmacy mail-back program, or flush them down the toilet, following guidance from the Food and Drug Administration (www.fda.gov/Drugs/Resourc esForYou). ? Visit www.cdc.gov/drugoverdose to learn about the risks of opioids abuse and overdose. ? If you believe you may be struggling with addiction, tell your health assisted living care manager and ask for guidance or call [facility] National Helpline at 9-357-992-BKDS. i Source: US Department of Health and Human Services/Center for Disease Control & Prevention [facility] Medications Given: Medication Dose Route levo (more content not included)... Normal [facility] Progress Note-Nurseinna 2019 Progress Note-Nurse [facility] ems at bedside receiving report and preparing patient for transport to [facility]. pt taken off high flow NC and placed on non rebreather at 15L/min o2 for traansport. Normal [facility] Troponin 9 Hr.on 09-10-2020 Troponin I.cardiac [Mass/Vol] 57.60 pg/mL Abnormal 10.10-27.10 [facility] Comment on above: Result Comment: Crit ical Result verified by repeat analysis\ Critical Result I_hsTnI:57.6 Called to MARU MEADE at ER by SHWETA KOEHLER and read back for confirmation at 09/09/2020 23:12:15 The 95% CI (Confidence Interval) PPV (Positive Predictive Value) for myocardial infarction in females is 38 pg/mL, in males 51 pg/mL. The results should be used in conjunction with clinical conditions of myocardial infarction. (Access High Sensitivity Troponin I Instructions For Use, Uziel Umair, April 2018) Performed By: #### 1 [id number] ####[facility] [address] [place] [address] .Manual Abson 09-09-2020 Basophils/Leukocytes Manual cnt (Bld) [Pure # fraction] 0.0 E9/L Normal 0.0-0.2 [facility] Comment on above: Performed By: #### 1 [id number], 9160140, 6819100, 8259612, 57455154, 95878344, 2121252, 08452878, 22633361 #### [facility] [address] [place] [address] Eosinophils/Leukocyt es Manual cnt (Bld) [Pure # fraction] 0.0 E9/L Normal 0.0-0.5 [facility] Comment on above: Performed By: #### 1 5177080, 6002536, 7723551, 5606553, 69076313, 29034919, 4231722, 40471123, 33225495 #### [facility] [address] [place] [address] Lymphocytes/Leukocyt es Manual cnt (Bld) [Pure # fraction] 0.4 E9/L Low 1.0-4.0 [facility] Comment on above: Performed By: #### 1 5063705, 8124743, 0052193, 9174192, 51525774, 29006978, 8729498, 45818843, 23768942 #### [facility] [address] [place] [address] Monocytes/Leukocytes Manual cnt (Bld) [Pure # fraction] 1.5 E9/L High 0.2-1.0 [facility] Comment on above: Performed By: #### 1 5713773, 0526230, 8079718, 2404345, 22183822, 41559733, 0801568, 08788524, 25331513 #### [facility] [address] [place] [address] Neutrophils/Leukocyt es Auto (Bld) [Pure # fraction] 18.9 E9/L High 2.0-7.5 [facility] Comment on above: Performed By: #### 1 8405924, 1244585, 1450267, 8938698, 90458804, 70181575, 7730129, 33380573, 35807965 #### [facility] [address] [place] [address] BMPon 09-09-2020 Creatinine [Mass/Vol] 1.1 mg/dL Normal 0.5-1.3 [facility] Comment on above: Performed By: #### 1 5044495, 0482004, 3625072, 2072793, 54507252, 06484348, 8205807, 24426655, 10116343 #### [facility] [address] [place] [address] Urea nitrogen [Mass/Vol] 26 mg/dL High 5-21 [facility] Comment on above: Performed By: #### 1 0247024, 6886125, 6754141, 8665989, 31550741, 69596870, 3847239, 81970080, 98502737 #### [facility] [address] [place] [address] Urea nitrogen/Creatinine [Mass ratio] 24 No Units High 10-20 [facility] Comment on above: Performed By: #### 1 7902802, 9041943, 9000585, 1695256, 29276074, 01321890, 0354672, 32937093, 14911922 #### [facility] [address] [place] [address] Anion gap [Moles/Vol] 14 mmol/L Normal 6-16 [facility] Comment on above: Performed By: #### 1 5305953, 0260110, 6704615, 4136008, 85140029, 32332933, 5646581, 66003439, 67983479 #### [facility] [address] [place] [address] Calcium [Mass/Vol] 8.7 mg/dL Low 8.9-11.1 [facility] Comment on above: Performed By: #### 1 9329324, 3689406, 9908581, 0834944, 37263734, 81156550, 1176327, 81894417, 23389898 #### [facility] [address] [place] [address] Chloride [Moles/Vol] 104 mmol/L Normal 101-[address] [facility] Comment on above: Performed By: #### 1 4816559, 2385285, 7689711, 4847655, 27479174, 99787045, 5758275, 46211115, 16738701 #### [facility] [address] [place] [address] CO2 [Moles/Vol] 23 mmol/L Normal 21-31 [facility] Comment on above: Performed By: #### 1 2408635, 9684725, 0285484, 9482461, 56289497, 00700053, 9509274, 55802378, 72204869 #### [facility] [address] [place] [address] Glucose [Mass/Vol] 256 mg/dL High 55-199 [facility] Comment on above: Result Comment: If t his glucose result represents a fasting glucose, interpretation should refer to the following reference range: 55-99 mg/dL Performed By: #### 1 2074673, 6531984, 7175110, 7271967, 60475802, 68519342, 0260050, 44716010, 66480701 #### [facility] [address] [place] [address] Potassium [Moles/Vol] 4.9 mmol/L Normal 3.5-5.3 [facility] Comment on above: Performed By: #### 1 7175330, 4908482, 5407677, 4797790, 18872492, 55267796, 2579949, 46575413, 50533838 #### [facility] [address] [place] [address] Sodium [Moles/Vol] 136 mmol/L Normal 135-145 [facility] Comment on above: Performed By: #### 1 8553809, 8141129, 3503379, 9259225, 29188296, 07822677, 7064727, 06498990, 33963840 #### [facility] [address] [place] [address] BNPon 09-09-2020 Int Ctr BNP Pass Normal [facility] Comment on above: Performed By: #### 1 4275785, 0951767, 1566479, 9656239, 79784993, 93653376, 1699762, 51556566, 84484241 ####[facility] [address] [place] [address] Natriuretic peptide B (Bld) [Mass/Vol] 477 pg/mL High 5-80 [facility] Comment on above: Performed By: #### 1 0355212, 2443482, 7987088, 1352595, 97730275, 74013742, 1517467, 01647252, 65777423 ####[facility] [address] [place] [address] Bld Gas Arton 09-09-2020 a/A Ratio Art 37.50 Normal >=0.80 [facility] Comment on above: Performed By: #### 1 4828622 ####[facility] [address] [place] [address] AaDO2 Art 144.6 High 5.0-15.0 [facility] Comment on above: Performed By: #### 1 7028705 ####[facility] [address] [place] [address] Allens Test Positive Invalid Interpretation Code [facility] Comment on above: Result Comment: [facility] Department of Pulmonary Medicine [address] [place] [address] Performed By: #### 1 6835461 ####[facility] [address] [place] [address] Base excess Calc (Bld) [Moles/Vol] -1.8000 mmol/L Low >=2.8 [facility] Comment on above: Performed By: #### 1 1339482 ####[facility] [address] [place] [address] Called By: MISHA Invalid Interpretation Code [facility] Comment on above: Performed By: #### 1 5788002 ####[facility] [address] [place] [address] Called To: COLTON Invalid Interpretation Code [facility] Comment on above: Performed By: #### 1 1073122 ####[facility] [address] [place] [address] cCa2+ Art 4.93 mg/dL Normal 4.40-5.30 [facility] Comment on above: Performed By: #### 1 6518440 ####[facility] [address] [place] [address] cCl- Art 106.0 mmol/L Normal 101.0-111.0 [facility] Comment on above: Performed By: #### 1 8177272 ####[facility] [address] [place] [address] cGlu Art 262.0 mg/dL High 55.0-199.0 [facility] Comment on above: Result Comment: 83 Performed By: #### 1 9452113 ####[facility] [address] [place] [address] cK+ Art 4.9 mmol/L Normal 3.5-5.3 [facility] Comment on above: Performed By: #### 1 4442974 ####[facility] [address] [place] [address] cLac Art 1 mmol/L Low 5-14 [facility] Comment on above: Performed By: #### 1 6039827 ####[facility] [address] [place] [address] patient navigator+ Art 140.0 mmol/L Normal 135.0-145.0 [facility] Comment on above: Performed By: #### 1 3468533 ####[address] [place] [address] CO2 (Bld) [Partial pressure] 45.5 mm[Hg] High 35.0-45.0 [facility] Comment on above: Result Comment: 83 Performed By: #### 1 4781584 ####[address] [place] [address] Device NASAL Invalid Interpretation Code [facility] Comment on above: Performed By: #### 1 5425473 ####[address] [address] Drawn by TSB Invalid Interpretation Code [facility] Comment on above: Performed By: #### 1 6508286 ####[address] [place] [address] Dt/Tm Notified 12:54:00 Invalid Interpretation Code [facility] Comment on above: Performed By: #### 1 3451470 ####[address] [place] [address] FCOHb Art 1.1 % Low 1.5-4.9 [facility] Comment on above: Result Comment: 84 Reference range Nonsmoker <1.5% Smoker <5.0% Heavy Smoker <9.0% Performed By: #### 1 8657629 ####[address] [place] [address] FIO2 BG 40.0 Invalid Interpretation Code [facility] Comment on above: Performed By: #### 1 1521851 ####[address] [place] [address] Flow 5.00 Invalid Interpretation Code [facility] Comment on above: Performed By: #### 1 4714818 ####[address] [place] [address] FMetHb Art 0.6 % Normal 0.0-1.9 [facility] Comment on above: Performed By: #### 1 4697140 ####[address] [place] [address] FO2Hb Art 94.9 % Normal 92.0-100.0 [facility] Comment on above: Performed By: #### 1 6001346 ####[address] [address] HCO3 (Bld) [Moles/Vol] 22.9 mmol/L Normal 22.0-26.0 [facility] Comment on above: Performed By: #### 1 1409685 ####[address] [address] Hemoglobin (Bld) [Mass/Vol] 9.9 g/dL Low 12.0-16.0 [facility] Comment on above: Result Comment: 84 Performed By: #### 1 4398701 ####[place] [address]5057 Oxygen saturation in Blood 96.6 % Normal 95.0-100.0 [facility] Comment on above: Performed By: #### 1 1451902 ####[place] [address]5057 P O2 Arterial 86.6 mmHg Normal 80.0-100.0 [facility] Comment on above: Performed By: #### 1 5805466 ####[address] [address] pH (Bld) 7.333 [pH] Low 7.350-7.450 [facility] Comment on above: Result Comment: 84 Performed By: #### 1 4690637 ####[address] [address] Sample Site RR Invalid Interpretation Code [facility] Comment on above: Performed By: #### 1 3938788 ####[address] [address] Sample Type Arterial Invalid Interpretation Code [facility] Comment on above: Performed By: #### 1 1460948 ####[address] [address] CBC w/ Auto Diffon 202 0 Erythrocyte distribution width (RBC) [Ratio] 15.1 % High 10.9-14.2 [facility] Comment on above: Performed By: #### 1 7678976, 3327432, 0420851, 7847543, 46935872, 68629950, 8745191, 52261617, 70504858 #### [facility] [address] [place] [address] Hematocrit (Bld) [Volume fraction] 30.7 % Low 34.0-46.0 [facility] Comment on above: Performed By: #### 1 8168200, 2995012, 5655248, 0384407, 98247797, 17506993, 0308131, 23034288, 03690302 #### [facility] [address] [place], [place] [address] Hemoglobin (Bld) [Mass/Vol] 9.9 g/dL Low 12.0-16.0 [facility] Comment on above: Performed By: #### 1 9396002, 2005371, 4496227, 6348412, 58378184, 84738508, 1964003, 04719583, 61695361 #### [facility] [address] [place] [address] MCH (RBC) [Entitic mass] 29.7 pg Normal 27.0-34.0 [facility] Comment on above: Performed By: #### 1 0845748, 6279858, 9445241, 0210513, 57163377, 83387914, 1106563, 47918895, 03699646 #### [facility] [address] [place] [address] MCHC (RBC) [Mass/Vol] 32.2 g/dL Normal 31.4-36.0 [facility] Comment on above: Performed By: #### 1 2853396, 3962634, 9901104, 4131529, 12866860, 61856873, 8233765, 36336835, 91683345 #### [facility] [address] [place] [address] MCV (RBC) [Entitic vol] 92.3 fL Normal 80.0-100.0 [facility] Comment on above: Performed By: #### 1 8039840, 2775222, 9201168, 0977459, 75291555, 19725131, 9352731, 35223294, 11790913 #### [facility] [address] [place] [address] Platelet mean volume (Bld) [Entitic vol] 8.4 fL Normal 6.4-10.8 [facility] Comment on above: Performed By: #### 1 9978599, 1384004, 8069812, 3694695, 75578232, 87946766, 0283782, 61418008, 82191112 #### [facility] [address] [place] [address] Platelets (Bld) [#/Vol] 243.0 E9/L Normal 150.0-500.0 [facility] Comment on above: Performed By: #### 1 6173583, 0288066, 3420466, 2132192, 48751422, 75628365, 7459597, 61578666, 07378069 #### [facility] [address] [place] [address] RBC (Bld) [#/Vol] 3.3 E12/L Low 4.3-5.9 [facility] Comment on above: Performed By: #### 1 5312356, 7205337, 2920193, 7861442, 96719379, 60605688, 6672074, 74718919, 30330506 #### [facility] [address] [place] [address] WBC corrected for nucl RBC Auto (Bld) [#/Vol] 21.7 E9/L High 4.0-11.0 [facility] Comment on above: Performed By: #### 1 3241744, 0475552, 2514462, 5264572, 99079366, 84138797, 0955021, 91958380, 40130632 #### [facility] [address] [place] [address] CTA Cheston 12-18-2020 CTA Chest Exam Date/Time: 09/09/2020 18:01 EST Reason for Exam: PE suspected, high prob;Other (please specify) Report IMPRESSION: SMALL PULMONARY EMBOLI IN SOME OF THE POSTERIOR PERIPHERAL BRANCHES OF RIGHT AND LEFT LOWER LOBE PULMONARY ARTERIES. BILATERAL PLEURAL EFFUSIONS. EXTENSIVE BILATERAL INFILTRATES. CLINICAL HISTORY: PE suspected, high prob. Elevated d-dimer. Shortness of breath. Covid 19 positive. COMMENT: Axial images were obtained after the rapid injection of IV contrast with narrow collimation and reconstructed at a narrow interval. Coronal and sagittal reconstructions were performed. On the PACS, images were reviewed in cine display and using MIP postprocessing. The patient was moving and there are some motion artifact with degradation of image quality. There are small filling defects in posterior peripheral branches of the right and left lower lobe pulmonary arteries. No filling defects are noted elsewhere in the pulmonary arterial system, and no filling defects are present in the pulmonary outflow tract, right or left main pulmonary arteries, lobar pulmonary arteries, or major central pulmonary arterial branches. The thoracic aorta is normal in diameter, without evidence of aneurysm. The heart is mildly enlarged. No pericardial effusion is noted. There is no mediastinal nor hilar lymphadenopathy. There are moderate-sized bilateral pleural effusions. There are volume loss changes of both lower lobes. There is partial atelectatic collapse of posterior and basilar portions of both lower lobes. There is extensive confluent airspace opacification of much of the right upper lobe centrally and peripherally and there are patchy areas of confluent airspace opacification in portions of the left upper lobe, right middle lobe, and both lower lobes. There also are some areas of groundglass opacification. The bilateral lung findings are nonspecific, but likely on an infectious/inflammatory basis. Covid 19 pneumonia is a consideration, but there also may be superimposed pneumonia of other etiology, such as bacterial. No lung mass is evident, but with the extensive areas of airspace opacification, evaluation for lung mass is not optimal. No pneumothorax is evident. All CT scans at this facility use dose modulation, iterative reconstruction, and/or weight based dosing when appropriate to reduce radiation dose to as low as reasonably Report achievable. FINAL REPORT Dictated: 09/09/2020 6:42 pm Doni Caban M.D. Signed (Electronic Signature): 09/09/2020 6:42 pm Signed by: Doni Caban M.D. Transcribed by: MATTHEW Technologist: JAI Technical Comments GFR (mL/min/1/73m2) 48- iv hydration before & after CTA Contrast: Isovue 370 Contrast amount in ml's: 66 Normal [facility] Consent for Treatmenton 08-23 Consent for Treatment [id number] Normal [facility] D-Dimeron 09-09-2020 Fibrin D-dimer FEU (PPP) [Mass/Vol] 1480 ng/mL Abnormal 215-500 [facility] Comment on above: Result Comment: Resu lts Verified By Repeat Analysis Results Called To Pito Chery/STEF By JIHAN And Read Back For Confirmation On 09/09/2020 13:32:18 EST. This D-Dimer assay may be used in conjunction with a non-high clinical pretest probability assessment to exclude deep-vein thrombosis(DVT). For exclusion of venous thrombosis or pulmonary embolism the analyte D-Dimer should not be used as an aid in patients with: Therapeutic dose anticoagulant therapy for >24 hours Fibrinolytic therapy within previous 7 days Trauma or surgery within previous 4 weeks Disseminated malignacies Aortic aneurysm Sepsis, severe infections, pneumonia, severe skin infections Liver cirrhosis Performed By: #### 1 1877697, 6060025, 3303381, 6217726, 22087810, 91177419, 2772906, 22658381, 90293004 ####[facility] [address] [place] [address] ED Note-Physicianon 09-09-20 ED Note-Physician Basic Information Time Seen: Koko Pettit DO 09/09/2020 12:35 Chief Complaint Sent from [facility] for increased SOB and low oxygen level. Covid positive about 2 weeks ago per EMS History of Present Illness 74 female presents to the emergency department with shortness of breath. [facility] testing about 2 weeks ago per EMS. Since then she has had increasing shortness of breath and her oxygen levels were low today at the facility which is ultimately what prompted them to come to the emergency department. Patient states that they put her on some unknown medications including antibiotics but she does not know the exact names of these medications. She denies any current or recent chest pain no history of CAD she is denying any pulmonary disease no COPD emphysema or asthma. Patient does not normally wear oxygen at the [facility]. No other aggravating or relieving factors no other associated symptoms no other prior treatments or complaints. Family: Reviewed and noncontributory Social: lives [facility] Review of systems negative unless otherwise specified in the HPI. Physical Exam Vitals & Measurements T: 36.5 ?C (Oral) HR: 84(Peripheral) RR: 28 BP: 167/104 SpO2: 95% WT: 82.2 kg WT: 82.2 kg General: The patient appears well and in no apparent distress. Patient is resting comfortably on cart. Skin: Warm, dry, mild pallor noted. Head: Normocephalic, atraumatic Neck: No JVD Eye: PERRLA, EOMI ENT: Moist mucus membranes Cardiovascular: Regular rate normal peripheral perfusion Respiratory: Increased work of breathing with overall diminished lung sounds no obvious wheezing Chest Wall: no deformity Musculoskeletal: normal ROM, no deformity, no swelling GI: No obvious distention soft nontender nondistended no guarding rebounding or rigidity Neurological: A&O moves all extremities equal strength and symmetry Psychiatric: Cooperative and appropriate Medical Decision Making Work-up in the ER has been reviewed and noted. Patient is found to have leukocytosis with hypoxemia. She was started here on high flow oxygen also treated with IV Levaquin because of concern for pneumonia. Patient was not treated with sepsis fluid bolus as patient is Covid positive and I would be concerned about the possibility of ARDS. I did order CT angiogram but there was some complication with the IV therefore there was delay. However IV was reestablished and we are awaiting results of CT angiogram. Case is discussed with hospitalist patient will be admitted for additional evaluation and treatment. Critical care time 45 minutes exclusive from separate billable procedures Assessment/Plan COVID-19 (U07.1: COVID-19) Hypoxemia (R09.02: Hypoxemia) Pneumonia (J18.9: Pneumonia, unspecified organism) Orders: levofloxacin + Dextrose 5% in Water intravenous solution 150 mL, 750 mg = 150 mL, IV Piggyback, Once, Stop date 09/09/20 14:16:00 EST, STAT, Start date 09/09/20 14:16:00 EST, 150 mL/hr, Infuse over 1 hour(s) Sodium Chloride 0.9% intravenous solution, Soln-IV, Misc, Once, Stop date 09/09/20 16:05:55 EST, Physician Stop, 09/09/20 16:05:55 EST Sodium Chloride 0.9% intravenous solution 1,000 mL, 1,000 mL, IV, 100 mL/hr, STAT, Start date 09/09/20 16:15:00 EST, 10 hour(s), Total volume (mL): 1,000, 82.2 kg .Manual Abs B-Type Natriuretic Peptide Basic Metabolic Panel Blood Culture Charcoal Blood Culture Charcoal Blood Gas Art CBC w/ Auto Diff CTA Chest D-Dimer ECG 12 Lead Adult ED Cardiac Monitoring eGFR Extra SST Tube Lactic Acid Manual Diff Oxygen Saturation Oxygen Therapy PT & PTT Saline Lock Insert Troponin 0 Hr. Troponin 3 Hr. Troponin 6 Hr. Troponin 9 Hr. XR Chest Single View Medications Administered Given Sodium Chloride 0.9% IV Brittanie 1000 mL 1,000 mL, 1000 mL, IV Premix Dextrose 5% Diluent 150 mL + levofloxacin additive 750 mg, IV Piggyback Disposition Plan Discharge Prescription List Prescriptions No active prescription medications Follow-up No qualifying data available Problem List/Past Medical History Ongoing No qualifying data Historical No qualifying data Medications Inpatient No active inpatient medications Home No active home medications Allergies statins (Unknown) Social History Alcohol - Denies Alcohol Use, 09/09/2020 Substance Abuse - Denies Substance Abuse, 09/09/2020 Tobacco - Denies Tobacco Use, 09/09/2020 Lab Results WBC: 21.7 E9/L High (09/09/20 13:00:00) RBC: 3.3 E12/L Low (09/09/20 13:00:00) Hgb: 9.9 gm/dL Low (09/09/20 13:00:00) Hct: 30.7 % Low (09/09/20 13:00:00) MCV: 92.3 fL (09/09/20 13:00:00) MCH: 29.7 pg (09/09/20 13:00:00) MCHC: 32.2 gm/dL (09/09/20 13:00:00) RDW: 15.1 % High (09/09/20 13:00:00) Platelet: 243 E9/L (09/09/20 13:00:00) MPV: 8.4 fL (09/09/20 13:00:00) Segs Man: 81 % High (09/09/20 13:00:00) Band Man: 6 % (09/09/20 13:00:00) Lymph Man: 2 % Low (09/09/20 13 (more content not included)... Normal [facility] Comment on above: Result Comment: Elec tronically Signed By: Koko Pettit DO\.br\Date and Time Signed: 09/09/20 18:56 EST Lactic Acidon 09-09-2020 Lactate [Mass/Vol] 1.0 mmol/L Normal 0.5-2.2 [facility] Comment on above: Performed By: #### 2 [id number] ####[facility] [address] [place] [address] Manual Diffon 09-09-2020 Band form neutrophils/100 WBC (Bld) 6 % Normal 0-10 [facility] Comment on above: Order Comment: Order Added by Discern Expert. Performed By: #### 1 [id number], 9606578, 4030268, 7356851, 76001441, 26527731, 2979814, [id number], 96077705 #### [facility] [address] [place] [address] Basophils/100 WBC (Bld) 0 % Normal 0-2 [facility] Comment on above: Order Comment: Order Added by Discern Expert. Performed By: #### 1 [id number], 9313367, 4567787, 5071329, 38803393, 03425220, 3909952, 37867497, 76156870 #### [facility] [address] [place] [address] Eosinophils/100 WBC (Bld) 0 % Normal 0-8 [facility] Comment on above: Order Comment: Order Added by Discern Expert. Performed By: #### 1 [id number], 3269952, 7400714, 3639623, 50722699, 37231672, 3547592, 04905501, 87623638 #### [facility] [address] [place] [address] Lymphocytes/100 WBC (Bld) 2 % Low 14-50 [facility] Comment on above: Order Comment: Order Added by Discern Expert. Performed By: #### 1 [id number], 1546241, 0287740, 7722455, 87129735, 95441432, 7529878, 55912082, 46145985 #### [facility] [address] [place] [address] Metamyelocytes/Leuko cytes Manual cnt (Bld) [Pure # fraction] 2 % High <=0 [facility] Comment on above: Order Comment: Order Added by Discern Expert. Performed By: #### 1 [id number], 3359013, 4930622, 6694002, 20163212, 69352300, 7567473, 06108876, 73378008 #### [facility] [address] [place] [address] Monocytes/100 WBC (Bld) 7 % Normal 4-14 [facility] Comment on above: Order Comment: Order Added by Discern Expert. Performed By: #### 1 3466616, 1133515, 3392809, 4210810, 82092906, 03350795, 0069052, 92903677, 05356478 #### [facility] [address] [place] [address] Morphology Elie (Bld) [Interp] Normal Normal [facility] Comment on above: Order Comment: Order Added by Discern Expert. Performed By: #### 1 9285084, 6169286, 0769724, 4872505, 87550319, 31790859, 7239550, 64571988, 92985252 #### [facility] [address] [place] [address] Myelocytes/100 WBC (Bld) 2 % High <=0 [facility] Comment on above: Order Comment: Order Added by Discern Expert. Performed By: #### 1 4034769, 9257773, 5205606, 4347764, 92167406, 72288686, 8422009, 19305712, 85288186 #### [facility] [address] [place] [address] Nucleated cells (Bld) [#/Vol] 1 High <=0 [facility] Comment on above: Order Comment: Order Added by Discern Expert. Performed By: #### 1 3712312, 6593462, 2242573, 3692607, 56603955, 11731482, 3286433, 20117226, 49184962 #### [facility] [address] [place] [address] Segmented neutrophils/100 WBC (Bld) 81 % High 36-75 [facility] Comment on above: Order Comment: Order Added by Discern Expert. Performed By: #### 1 4540531, 6558320, 0879650, 6289496, 71984879, 11596715, 6510699, 09198726, 87054092 #### [facility] [address] [place] [address] Variant lymphocytes LM Ql (Bld) 0 % Invalid Interpretation Code [facility] Comment on above: Order Comment: Order Added by Discern Expert. Performed By: #### 1 5592343, 0073123, 7317403, 1634906, 71497929, 90365858, 3833201, 87685439, 86653762 #### [facility] [address] [place] [address] PTon 09-09-2020 INR Coag (PPP) [Relative time] 1.9 {INR} Invalid Interpretation Code [facility] Comment on above: Result Comment: INR results are specifically intended to assess patients stabilized on long-term Anticoagulation therapy suggested INR?s ?Less Intensive Anticoagulation? 2.0 ? 3.0 Conventional Range 3.0 ? 4.5 Performed By: #### 2 491206, 2304298 ####[facility] [address] [place] [address] PT Coag (PPP) [Time] 22.8 second(s) High 10.2-12.9 [facility] Comment on above: Performed By: #### 2 892030, 6681698 ####[facility] [address] [place] [address] PT & PTTon 09-09-2020 aPTT Coag (PPP) [Time] 31.7 second(s) Normal 25.1-36.5 [facility] Comment on above: Result Comment: Hepa rin therapeutic range (represented by Anti-Factor Xa activity of 0.2 - 0.4 U/mL) corresponds to PTT of 56.6 - 109.0 sec. Performed By: #### 1 5145857, 7770083, 7849990, 1930333, 85107274, 65765570, 0510623, 99760214, 75369183 ####[facility] [address] [place] [address] INR Coag (PPP) [Relative time] 2.0 {INR} Invalid Interpretation Code [facility] Comment on above: Result Comment: INR results are specifically intended to assess patients stabilized on long-term Anticoagulation therapy suggested INR?s ?Less Intensive Anticoagulation? 2.0 ? 3.0 Conventional Range 3.0 ? 4.5 Performed By: #### 1 1078293, 1214363, 9242200, 3513267, 57369483, 36690437, 2257992, 89277430, 95511315 ####[facility] [address] [place] [address] PT Coag (PPP) [Time] 23.6 second(s) High 10.2-12.9 [facility] Comment on above: Performed By: #### 1 6279787, 0784420, 8640412, 1977820, 72782786, 83015599, 0697019, 29321932, 46632817 ####[facility] [address] [place] [address] PTTon 09-09-2020 aPTT Coag (PPP) [Time] 30.4 second(s) Normal 25.1-36.5 [facility] Comment on above: Result Comment: Hepa rin therapeutic range (represented by Anti-Factor Xa activity of 0.2 - 0.4 U/mL) corresponds to PTT of 56.6 - 109.0 sec. Performed By: #### 2 570540, 2780399 ####[facility] [address] [place] [address] Progress Note-Nurseon 2019 Progress Note-Nurse Pt care report provi ded to JARRET Hirsch. Pts family member, Rosenda updated on pt status. Presently awaiting transport [place] [facility] [place] [facility], [place] [address]h[place] Normal [facility] Progress Note-Nurse Pt care report alan d to [facility] [place] [facility] DIRECTOR Zach, advised of family contact information and will send SNF paperwork with patient. Normal [facility] Progress Note-Nurse Pts daughter, Rosenda updated on pt transfer and condition. Rosenda: [phone] Pts family sts pt is under extreme stress, pts spouse yesterday due to COVID infection. Normal [facility] Progress Note-Nurse Pts son updated on p t condition, presently awating updated order set. Pt returns from CT, RT at bedside for high flow o2 placement. Normal [facility] Progress Note-Nurse IV ABx completed at this time, pt to CT Normal [facility] Progress Note-Nurse Pt c/o increased dys pnea, spo2 reading 89% oxygen increased to 6lpm, nasal cannula. made aware, requests RT for high flow oxygen therapy Normal [facility] Progress Note-Nurse Advised per CT that IV no longer infuses/flushes, await IV access at this time via US. Normal [facility] Progress Note-Nurse Pt to imaging at thi s time. Normal [facility] Troponin 0 Hr.on 09-09-2020 Troponin I.cardiac [Mass/Vol] 10.10 pg/mL Normal 10.10-27.10 [facility] Comment on above: Result Comment: The 95% CI (Confidence Interval) PPV (Positive Predictive Value) for myocardial infarction in females is 38 pg/mL, in males 51 pg/mL. The results should be used in conjunction with clinical conditions of myocardial infarction. (Access High Sensitivity Troponin I Instructions For Use, Uziel Umair, April 2018) Performed By: #### 1 [id number], 0508457, 2626952, 3595273, 38321670, 35995953, 6220467, 05284810, 08690871 ####[facility] [address] [place] [address] Troponin 3 Hr.on 09-09-2020 Troponin I.cardiac [Mass/Vol] 20.20 pg/mL Normal 10.10-27.10 [facility] Comment on above: Result Comment: The 95% CI (Confidence Interval) PPV (Positive Predictive Value) for myocardial infarction in females is 38 pg/mL, in males 51 pg/mL. The results should be used in conjunction with clinical conditions of myocardial infarction. (Access High Sensitivity Troponin I Instructions For Use, [employer], April 2018) Performed By: #### 1 [id number] ####[facility] [address] [place] [address] Troponin 6 Hr.on 09-09-2020 Troponin I.cardiac [Mass/Vol] 37.60 pg/mL High 10.10-27.10 [facility] Comment on above: Result Comment: The 95% CI (Confidence Interval) PPV (Positive Predictive Value) for myocardial infarction in females is 38 pg/mL, in males 51 pg/mL. The results should be used in conjunction with clinical conditions of myocardial infarction. (Access High Sensitivity Troponin I Instructions For Use, [employer], April 2018) Performed By: #### 1 [id number] #### [facility] [address] [place] [address] XR Chest Single Viewon 09-09 XR Chest Single View Exam Date/Time: 09/09/2020 13:09 EST Reason for Exam: Chest pain Report IMPRESSION: DIFFUSE BILATERAL INFILTRATES. EXAM: XR Chest Single View History: Chest pain. Shortness of breath. Technique: Portable AP view of the chest. Comparison: None available Findings: The cardiomediastinal silhouette is within normal limits. Airspace opacities throughout both lungs, right and left. No pneumothorax or overt pleural effusion. Left axillary surgical clips. No acute osseous abnormality. FINAL REPORT Dictated: 09/09/2020 1:29 pm Rickie Mcclendon DO Signed (Electronic Signature): 09/09/2020 1:29 pm Signed by: Rickie Mcclendon DO Transcribed by: MATTHEW Technologist: JAI Normal [facility] eGFRon 09-09-2020 GFR/1.73 sq M.predicted among blacks MDRD (S/P/Bld) [Vol rate/Area] 59 mL/min/1.73 m2 Normal >=59 [facility] Comment on above: Order Comment: Order added by Discern Expert. Result Comment: eGFR is race adjusted. AA=. Performed By: #### 1 [id number], 6753471, 6865353, 6188438, 57684954, 18017473, 5342069, 17116789, 48025787 #### [facility] [address] [place] [address] GFR/1.73 sq M.predicted among non-blacks MDRD (S/P/Bld) [Vol rate/Area] 48 mL/min/1.73 m2 Low >=59 [facility] Comment on above: Order Comment: Order added by Discern Expert. Result Comment: Partridge Farmer les kidney disease could be indicated at eGFR's of less than 60 mL/min/1.73m2. Kidney failure is indicated at less than 15 mL/min/1.73m2. Performed By: #### 1 [id number], 9979582, 5155006, 4201913, 48213370, 49290331, 8365281, 20136031, 90490270 #### [facility] [address] [place] [address] Vital Signs Date Time Vital Sign Value Performing Clinician Facility 05-20-2023 15:100400 Body height 162.6 cm Sandeep Lenz MD Work Phone: [facility] 05-20-2023 15:10-0400 Body temperature 97.81 [degF] Sandeep Lenz MD Work Phone: [facility] 05-20-2023 15:10-0400 Body weight 58.88 kg Sandeep Lenz MD Work Phone: [facility] 05-20-2023 15:10-0400 Diastolic blood pressure 72 mm[Hg] Sandeep Lenz MD Work Phone: [facility] 05-20-2023 15:10-0400 Heart rate 68 /min Sandeep Lenz MD Work Phone: [facility] 05-20-2023 15:10-0400 Respiratory rate 16 /min Sandeep Lenz MD Work Phone: [facility] 05-20-2023 15:10-0400 SaO2% (BldA) [Mass fraction] 99 % Sandeep Lenz MD Work Phone: [facility] 05-20-2023 15:10-0400 Systolic blood pressure 168 mm[Hg] Sandeep Lenz MD Work Phone: [facility] 04-30-2023 14:20-0400 Body temperature 97.59 [degF] Chair Marcos Work Phone: [facility] 04-30-2023 14:20-0400 Diastolic blood pressure 72 mm[Hg] Chair Marcos Work Phone: [facility] 04-30-2023 14:20-0400 Heart rate 64 /min Chair Marcos Work Phone: [facility] 04-30-2023 14:20-0400 Respiratory rate 16 /min Chair Tazewell Work Phone: [facility] 04-30-2023 14:20-0400 SaO2% (BldA) [Mass fraction] 98 % Chair Tazewell Work Phone: [facility] 04-30-2023 14:20-0400 Systolic blood pressure 147 mm[Hg] Chair Marcos Work Phone: [facility] 04-29-2023 15:21-0400 Body height 162.6 cm Sandeep Lenz MD Work Phone: [facility] 04-29-2023 15:21-0400 Body temperature 97 [degF] Sandeep Lenz MD Work Phone: [facility] 04-29-2023 15:21-0400 Body weight 58.24 kg Sandeep Lenz MD Work Phone: [facility] 04-29-2023 15:21-0400 Diastolic blood pressure 66 mm[Hg] Sandeep Lenz MD Work Phone: [facility] 04-29-2023 15:21-0400 Heart rate 66 /min Sandeep Lenz MD Work Phone: [facility] 04-29-2023 15:21-0400 Respiratory rate 16 /min Sandeep Lenz MD Work Phone: [facility] 04-29-2023 15:21-0400 SaO2% (BldA) [Mass fraction] 96 % Sandeep Lenz MD Work Phone: [facility] 04-29-2023 15:21-0400 Systolic blood pressure 153 mm[Hg] Sandeep Lenz MD Work Phone: [facility] 05-19-2022 11:30-0400 Diastolic blood pressure 80 mm[Hg] Et3 [facility] 05-19-2022 11:30-0400 Heart rate 68 /min Et3 [facility] 05-19-2022 11:30-0400 Respiratory rate 16 /min Et3 [facility] 05-19-2022 11:30-0400 SaO2% (BldA) [Mass fraction] 98 % Et3 [facility] 05-19-2022 11:30-0400 Systolic blood pressure 175 mm[Hg] Et3 [facility] 01-08-2022 13:03-0400 Body height 162.6 cm Sandeep Lenz MD Work Phone: [facility] 01-08-2022 13:03-0400 Body temperature 97.39 [degF] Sandeep Lenz MD Work Phone: [facility] 01-08-2022 13:03-0400 Body weight 64.23 kg Sandeep Lenz MD Work Phone: [facility] 01-08-2022 13:03-0400 Diastolic blood pressure 69 mm[Hg] Sandeep Lenz MD Work Phone: [facility] 01-08-2022 13:03-0400 Heart rate 68 /min Sandeep Lenz MD Work Phone: [facility] 01-08-2022 13:03-0400 Respiratory rate 16 /min Sandeep Lenz MD Work Phone: [facility] 01-08-2022 13:03-0400 SaO2% (BldA) [Mass fraction] 97 % Sandeep Lenz MD Work Phone: [facility] 01-08-2022 13:03-0400 Systolic blood pressure 150 mm[Hg] Sandeep Lenz MD Work Phone: [facility] 11-11-2021 13:00-0500 Diastolic blood pressure 69 mm[Hg] MD Eduardo Sharpe Work Phone: [facility] 11-11-2021 13:00-0500 Heart rate 65 /min MD Eduardo Sharpe Work Phone: [facility] 11-11-2021 13:00-0500 Respiratory rate 16 /min MD Eduardo Sharpe Work Phone: [facility] 11-11-2021 13:00-0500 SaO2% (BldA) [Mass fraction] 96 % MD Eduardo Sharpe Work Phone: [facility] 11-11-2021 13:00-0500 Systolic blood pressure 129 mm[Hg] MD Eduardo Sharpe Work Phone: [facility] 11-11-2021 12:00-0500 Body temperature 98 [degF] MD Eduardo Sharpe Work Phone: [facility] 11-11-2021 06:00-0500 Body weight 63 kg MD Eduardo Sharpe Work Phone: [facility] 11-10-2021 12:59-0500 Body height 163.83 cm MD Eduardo Sharpe Work Phone: [facility] 11-09-2021 18:45-0500 Body mass index (BMI) [Ratio] 23.8 kg/m2 MD Eduardo Sharpe Work Phone: [facility] Encounters Encounter Date Encounter Type Care Provider Facility Start: 08-19-2023 End: 08-19-2023 ambulatory EDUARDO SHARPE Facility:[facility] Start: 08-19-2023 Telephone encounter Clemente Hull Hematology/Oncology Comment on above: Results Start: 07-02-2023 End: 07-02-2023 ambulatory EDUARDO SHARPE Facility:[facility] Start: 06-05-2023 End: 06-05-2023 ambulatory Bala Welshgiannapritesh Other [facility] Other Start: 06-05-2023 Telephone encounter Sadimaureen Welshyosvany [facility] Start: 05-21-2023 Telephone encounter Clemente Hull Hematology/Oncology Comment on above: Results Start: 05-20-2023 End: 05-20-2023 ambulatory EDUARDO SHARPE Facility:[facility] Start: 05-20-2023 End: 05-20-2023 Office outpatient visit 25 minutes Sandeep Lenz MD Work Phone: Hematology/Oncology Comment on above: Hypercalcemia (Prima ry Dx); Malignant neoplasm of upper-outer quadrant of left breast in female, estrogen receptor positive (HCC); Stage 3 chronic kidney disease, unspecified whether stage 3a or 3b CKD (HCC) Start: 05-20-2023 Telephone encounter Sandeep bazan MD Work Phone: [facility] Comment on above: Referral Information (Nephrology) Start: 05-09-2023 Social Work Aleida QUESADA Hematolo gy/Oncology Start: 05-07-2023 Refill Sandeep aragon MD Work Phone: Hematology/Oncology Comment on above: Refill Request Start: 04-30-2023 End: 04-30-2023 Infusion Center Chair Nya DuranTazewell Work Phone: Hematology/Oncology Comment on above: Hypercalcemia (Prima ry Dx); Other specified menopausal and perimenopausal disorders; Malignant neoplasm of upper-outer quadrant of left breast in female, estrogen receptor positive (HCC) Start: 04-29-2023 End: 04-29-2023 ambulatory EDUARDO SHARPE Facility:[facility] Start: 04-29-2023 End: 04-29-2023 Office outpatient visit 25 minutes Sandeep Lenz MD Work Phone: Hematology/Oncology Comment on above: Malignant neoplasm o f upper-outer quadrant of left breast in female, estrogen receptor positive (HCC) (Primary Dx); Hypercalcemia; Malignant neoplasm of breast in female, estrogen receptor positive, unspecified laterality, unspecified site of breast (HCC); Stage 3 chronic kidney disease, unspecified whether stage 3a or 3b CKD (HCC) Start: 04-01-2023 End: 04-01-2023 ambulatory [facility] Start: 01-14-2023 End: 01-14-2023 ambulatory [facility] Start: 09-03-2022 End: 09-03-2022 ambulatory RAHE[facility] Start: 08-23-2022 End: 09-23-2022 ambulatory SHAIKH Barbara AGUIAR Facility:[facility] Start: 08-19-2022 End: 08-24-2022 Evaluation and management of inpatient DR EDUARDO SHARPE Facility:[facility] Start: 07-24-2022 End: 08-22-2022 ambulatory SHAIKH Barbara AGUIAR Facility:[facility] Start: 07-06-2022 Refill Nataliya Iyer PA-C Work Phone: Hematology/Oncology Comment on above: Refill Request Start: 07-05-2022 End: 07-12-2022 Evaluation and management of inpatient DR EDUARDO SHARPE Facility:[facility] Start: 07-05-[address] EDUARDO SHARPE Facility :[facility] Start: 06-29-2022 Telephone encounter Sandeep bazan MD Work Phone: Hematology/Oncology Comment on above: Lab Orders Start: 06-24-2022 End: 07-23-[address] EDUARDO SHARPE Facility:[facility] Start: 05-30-2022 End: 05-31-[address] EDUARDO SHARPE Facility:[facility] Start: 05-24-2022 End: 06-23-[address] EDUARDO SHARPE Facility:[facility] Start: 05-23-2022 End: 05-24-[address] EDUARDO SHARPE Facility:[facility] Start: 05-21-2022 End: 05-22-[address] EDUARDO SHARPE Facility:[facility] Start: 05-19-2022 End: 05-21-2022 ambulatory UNKNOWN PROVIDER Facility:[facility] Start: 05-19-2022 End: 05-19-2022 ambulatory [facility] Emergenc y Triage, Treat and Transport Start: 05-19-2022 End: 05-19-2022 Emergency department patient visit [facility] Emergency Triage, Treat and Transport Comment on above: Arrived Start: 05-09-2022 End: 05-10-2022 ambulatory EDUARDO SHARPE Facility:[facility] Start: 05-07-2022 End: 05-08-[address] EDUARDO SHARPE Facility:[facility] Start: 04-23-2022 End: 05-23-2022 ambulatory SHAIKH Barbara AGUIAR Facility:[facility] Start: 03-23-2022 End: 04-20-[address] EDUARDO SHARPE Facility:[facility] Start: 02-21-2022 End: 03-23-[address] EDUARDO SHARPE Facility:[facility] Start: 01-22-2022 End: 02-20-2022 ambulatory SHAIKH Barbara AGUIAR Facility:[facility] Start: 01-11-2022 End: 01-12-[address] EDUARDO SHARPE Facility:[facility] Start: 01-09-2022 End: 01-10-[address] EDUARDO SHARPE Facility:[facility] Start: 01-08-2022 End: 01-08-2022 ambulatory Sandeep Lenz MD Work Phone: Hematology/Oncology Comment on above: Malignant neoplasm o f upper-outer quadrant of left breast in female, estrogen receptor positive (HCC) (Primary Dx); Encounter for screening for osteoporosis; Hypercalcemia Start: 01-08-2022 End: 01-08-2022 Patient encounter procedure Sandeep Lenz MD Work Phone: [facility] Comment on above: Malignant neoplasm o f upper-outer quadrant of left breast in female, estrogen receptor positive (HCC) (Primary Dx) Start: 01-05-2022 End: 01-06-2022 ambulatory SANDEEP LENZ Facility:[facility] Start: 12-27-2021 End: 12-27-2021 Patient encounter procedure MD Eduardo Sharpe Work Phone: [facility] [place] Start: 12-22-2021 End: 01-19-[address] EDUARDO SHARPE Facility:[facility]1 Start: 11-30-2021 End: 11-30-2021 ambulatory Brayden Hernandez Other [facility] Other Start: 11-30-2021 Office outpatient vi sit 15 minutes Brayden Hernandez [facility] Start: 11-21-2021 End: 12-21-2021 ambulatory SHAIKH Barbara AGUIAR Facility:[facility]1 Start: 11-17-2021 End: 11-17-2021 Patient encounter procedure MD Eduardo Sharpe Work Phone: [facility] [place] Start: 11-09-2021 End: 11-11-2021 Evaluation and management of inpatient MD Eduardo Sharpe Work Phone: [facility] [facility] Start: 11-09-2021 End: 11-09-2021 ambulatory MIKALA HIGGINS Facility:[facility]1 Start: 10-24-2021 End: 11-20-2021 ambulatory SHAIKH Barbara AGUIAR Facility:[facility]1 Start: 09-28-2021 End: 10-23-2021 ambulatory TIBURCIO HENDERSON Facility:[facility]1 Procedures Date Procedure Procedure Detail Performing Clinician Start: 08-19-2022 Assistance with Respiratory Ventilation, 24-96 Consecutive Hours, Continuous Positive Airway Pressure MIKALA HIGGINS Start: 07-08-2022 Insertion of Infusio n Device into Right Basilic Vein, Percutaneous Approach MIKALA HIGGINS Start: 12-27-2021 CT of head without contrast MD Eduardo Sharpe Work Phone: Start: 11-17-2021 CT of head without contrast MD Eduardo Sharpe Work Phone: Start: 11-10-2021 CT of head without contrast MD Eduardo Sharpe Work Phone: Start: 03-10-2020 Adult depression scr eening assessment Sandeep Lenz MD Work Phone: Plan of Treatment Date Care Activity Detail Author Start: 08-19-2026 [facility] Start: 05-20-2026 DIABETES SCREEN DIABETES SCREEN [facility] Start: 05-20-2026 [facility] Start: 04-30-2026 DIABETES SCREEN DIABETES SCREEN [facility] Start: 04-29-2026 DIABETES SCREEN DIABETES SCREEN [facility] Start: 01-08-2025 DIABETES SCREEN DIABETES SCREEN [facility] Start: 08-19-2024 Hemoglobin/Hematocrit Hemoglobin/Hem [facility] Start: 08-19-2024 Serum Creatinine Serum Creatinine [facility] Start: 05-20-2024 HEMOGLOBIN/HEMATOCRIT HEMOGLOBIN/HEM [facility] Start: 05-20-2024 SERUM CREATININE SERUM CREATININE [facility] Start: 04-30-2024 HEMOGLOBIN/HEMATOCRIT HEMOGLOBIN/HEM [facility] Start: 04-30-2024 SERUM CREATININE SERUM CREATININE [facility] Start: 05-24-2023 Influenza vaccination [facility] Start: 04-29-2023 End: 06-29-2023 Parathyrin related protein [Moles/volume] in Serum or Plasma PTH RELATED PEPTIDE Lab Routine Malignant neoplasm of upper-outer quadrant of left breast in female, estrogen receptor positive (HCC) Hypercalcemia Expected: 04/29/2023, Expires: 06/29/2023 [facility] Work Phone: Comment on above: Expected: 04/29/2023 , Expires: 06/29/2023 Start: 04-29-2023 End: 06-29-2023 PTH, INTACT (WITHOUT CALCIUM) PTH, INTACT (WITHOUT CALCIUM) Lab Routine Malignant neoplasm of upper-outer quadrant of left breast in female, estrogen receptor positive (HCC) Hypercalcemia Expected: 04/29/2023, Expires: 06/29/2023 [facility] Work Phone: Comment on above: Expected: 04/29/2023 , Expires: 06/29/2023 Start: 09-23-2022 ADVANCE DIRECTIVE DISCUSSION ADVANCE DIRECTIVE DISCUSSION [facility] Start: 09-23-2022 DEPRESSION ASSESSMENT DEPRESSION ASS ESSMENT [facility] Start: 07-09-2022 End: 09-08-2022 25-hydroxyvitamin D3 [Mass/volume] in Serum or Plasma VITAMIN D 25 HYDROXY Lab Routine Malignant neoplasm of upper-outer quadrant of left breast in female, estrogen receptor positive (HCC) Encounter for screening for osteoporosis Hypercalcemia Expected: 07/09/2022 (Approximate), Expires: 09/08/2022 [facility] Work Phone: Comment on above: Expected: 07/09/2022 (Approximate), Expires: 09/08/2022 Start: 07-09-2022 End: 09-08-2022 Calcitriol [Mass/volume] in Serum or Plasma VITAMIN D1 25-DIHYDR Lab Routine Malignant neoplasm of upper-outer quadrant of left breast in female, estrogen receptor positive (HCC) Encounter for screening for osteoporosis Expected: 07/09/2022 (Approximate), Expires: 09/08/2022 [facility] Work Phone: Comment on above: Expected: 07/09/2022 (Approximate), Expires: 09/08/2022 Start: 07-09-2022 End: 06-30-2023 CBC W Auto Differential panel - Blood CBC + DIFF Lab Routine Malignant neoplasm of upper-outer quadrant of left breast in female, estrogen receptor positive (HCC) Encounter for screening for osteoporosis Expected: 07/09/2022 (Approximate), Expires: 06/30/2023 [facility] Work Phone: Comment on above: Expected: 07/09/2022 (Approximate), Expires: 06/30/2023 Start: 07-09-2022 End: 06-30-2023 Comprehensive metabolic 2000 panel - Serum or Plasma COMP METABOLIC PANEL Lab Routine Malignant neoplasm of upper-outer quadrant of left breast in female, estrogen receptor positive (HCC) Encounter for screening for osteoporosis Expected: 07/09/2022 (Approximate), Expires: 06/30/2023 [facility] Work Phone: Comment on above: Expected: 07/09/2022 (Approximate), Expires: 06/30/2023 Start: 06-23-2022 Influenza vaccination Influenza Vacc ine (#1) [facility] Start: 05-24-2022 Influenza vaccination INFLUENZA (#1) [facility] Start: 09-23-2021 ADVANCE DIRECTIVE DISCUSSION ADVANCE DIRECTIVE DISCUSSION [facility] Start: 09-23-2021 DEPRESSION ASSESSMENT DEPRESSION ASS ESSMENT [facility] Start: 03-10-2021 Adult depression screening assessment DEPRESSION SCREENING [facility] Start: 06-17-2019 Pneumococcal Vaccine : 65+ (2 - PPSV23 or PCV20) Pneumococcal Vaccine: 65+ (2 - PPSV23 or PCV20) [facility] Start: 06-17-2019 PNEUMOCOCCAL: 65+ (2 - PPSV23 if available, else PCV20) PNEUMOCOCCAL: 65+ (2 - PPSV23 if available, else PCV20) [facility] Start: 06-17-2019 PNEUMOCOCCAL: 65+ (2 - PPSV23 or PCV20) PNEUMOCOCCAL: 65+ (2 - PPSV23 or PCV20) [facility] Start: 2009 BONE DENSITY BONE DENSITY [facility] Start: 2009 Bone Density Screening Bone Density Screening [facility] Start: 2009 Pneumococcal vaccination Pneumococcal Vaccine(s) (65+ yrs) (1 - PCV) [facility] Start: 2009 PNEUMOVAX AGE 65 AND OVER WITH 5YR LOOKBACK (#1) PNEUMOVAX AGE 65 AND OVER WITH 5YR LOOKBACK (#1) [facility] Start: 2009 Screening for osteoporosis Bone Densitometry [facility] Start: 2004 RSV Vaccine (1 - 1-d ose 60+ series) RSV Vaccine (1 - 1-dose 60+ series) [facility] Start: 1994 Shingles (RZV) Vacci ne (1 of 2) Shingles (RZV) Vaccine (1 of 2) [facility] Start: 1994 SHINGRIX VACCINE (1 of 2) SHINGRIX VACCINE (1 of 2) [facility] Start: 1963 Urine microalbumin profile [facility] Start: 1962 ANNUAL PCP TEAM VAMP THROATER LES DISEASE VISIT ANNUAL PCP TEAM CHRONIC DISEASE VISIT [facility] Start: 1962 HEPATITIS C SCREENING HEPATITIS C SC REENING [facility] Start: 1962 Hepatitis C screening Hepatitis C An tibody [facility] Start: 1962 Tetanus + diphtheria + acellular pertussis vaccine (product) Tdap Booster [facility] Start: 1956 COVID-19 VACCINE (1) COVID-19 VACCIN E (1) [facility] Start: 04-09-1945 COVID-19 Vaccine (#1) COVID-19 Vacci ne (#1) [facility] End: 05-28-2024 Bone &/joint imaging whole body NM BONE WHOLE BODY Radiology Routine Malignant neoplasm of breast in female, estrogen receptor positive, unspecified laterality, unspecified site of breast (HCC) 1 Occurrences starting 04/29/2023 until 05/28/2024 [facility] Work Phone: Comment on above: 1 Occurrences starti ng 04/29/2023 until 05/28/2024 End: 05-19-2024 Calcium [Mass/volume] in Serum or Plasma CALCIUM TOTAL BLD Lab Routine Hypercalcemia Malignant neoplasm of upper-outer quadrant of left breast in female, estrogen receptor positive (HCC) Stage 3 chronic kidney disease, unspecified whether stage 3a or 3b CKD (HCC) Every 6 weeks for 9 Occurrences starting 05/20/2023 until 05/19/2024 [facility] Work Phone: Comment on above: Every 6 weeks for 9 Occurrences starting 05/20/2023 until 05/19/2024 End: 05-19-2024 Calcium.ionized [Moles/volume] in Blood CALCIUM IONIZED BLOOD Lab Routine Hypercalcemia Malignant neoplasm of upper-outer quadrant of left breast in female, estrogen receptor positive (HCC) Stage 3 chronic kidney disease, unspecified whether stage 3a or 3b CKD (HCC) Every 6 weeks for 9 Occurrences starting 05/20/2023 until 05/19/2024, 1 completed [facility] Work Phone: Comment on above: Every 6 weeks for 9 Occurrences starting 05/20/2023 until 05/19/2024, 1 completed End: 05-19-2024 CBC W Auto Differential panel - Blood CBC + DIFF Lab Routine Hypercalcemia Malignant neoplasm of upper-outer quadrant of left breast in female, estrogen receptor positive (HCC) Stage 3 chronic kidney disease, unspecified whether stage 3a or 3b CKD (HCC) Every 6 weeks for 9 Occurrences starting 05/20/2023 until 05/19/2024, 1 completed [facility] Work Phone: Comment on above: Every 6 weeks for 9 Occurrences starting 05/20/2023 until 05/19/2024, 1 completed End: 05-19-2024 Comprehensive metabolic 2000 panel - Serum or Plasma COMP METABOLIC PANEL Lab Routine Hypercalcemia Malignant neoplasm of upper-outer quadrant of left breast in female, estrogen receptor positive (HCC) Stage 3 chronic kidney disease, unspecified whether stage 3a or 3b CKD (HCC) Every 6 weeks for 9 Occurrences starting 05/20/2023 until 05/19/2024, 1 completed [facility] Work Phone: Comment on above: Every 6 weeks for 9 Occurrences starting 05/20/2023 until 05/19/2024, 1 completed Parathyrin related protein [Moles/volume] in Serum or Plasma PTH RELATED PEPTIDE Lab Routine Malignant neoplasm of upper-outer quadrant of left breast in female, estrogen receptor positive (HCC) Hypercalcemia 04/30/2023 3:55 PM EDT [facility] Work Phone: Patient Education Heart Healthy Diet [facility] Work Phone: Patient referral [facility] Work Phone: [facility] Immunizations Immunization Date Immunization Notes Care Provider Fa [facility] 07-11-2022 influenza, high dose seasonal, preservative-free Clemente Srivastava RN [facility] 07-11-2022 pneumococcal polysaccharide vaccine, 23 valent Clemente Srivastava RN [facility] 07-11-2022 influenza virus vacc ine, unspecified formulation Sandeep Lenz MD Work Phone: [facility] 07-07-2021 influenza, high-dose , quadrivalent vaccine (FLUZONE HIGH DOSE QUADRIVALENT) Sandeep Lenz MD Work Phone: [facility] 07-07-2021 unknown vaccine or i mmune globulin Clemente Srivastava RN [facility] 06-12-2021 influenza, high dose seasonal, preservative-free Clemente Srivastava RN [facility] 06-22-2020 influenza, high dose seasonal, preservative-free Sandeep Lenz MD Work Phone: [facility] 06-15-2020 Seasonal trivalent influenza vaccine, adjuvanted, preservative free Sandeep Lenz MD Work Phone: [facility] 06-17-2018 influenza, high dose seasonal, preservative-free Sandeep Lenz MD Work Phone: [facility] 06-17-2018 pneumococcal conjuga te vaccine, 13 valent Sandeep Lenz MD Work Phone: [facility] 07-09-2017 influenza, high dose seasonal, preservative-free Sandeep Lenz MD Work Phone: [facility] 07-09-2017 pneumococcal conjuga te vaccine, 13 valent Sandeep Lenz MD Work Phone: [facility] Payers Date Payer Category Payer Unknown MEDICA RE SUPPLEMENT [id number] 2014-Present [phone] [address] [address] [place] [address] Indemnity [id number] 2014 Unknown MEDICA RE SUPPLEMENT [id number] 2014-Present [phone] [address] [address] [place] [address] Indemnity [id number] 2009 Medicare MEDICARE MEDICAR E A AND B [id number] 2009-Present [phone] [address] [address] [place] [address] Medicare [id number] 2009 Medicare [id number] 1959 Medicare [id number] 1959 Unknown [id number] 1959 Unknown [id number] 1944 Unknown [id number] [id number]7 1944 Unknown [id number] 2.16.840.1.352385.3.579.2.732 1944 Unknown [id number] 2.16.840.1.449241.3.579.2.593 1944 Unknown [id number] 2.16.840.1.291293.3.579.2.593 1944 Unknown [id number] 2.16.840.1.037630.3.579.2.593 1944 Unknown [id number] 2.16.840.1.834983.3.579.2.593 1944 Unknown [id number] 2.16.840.1.000803.3.579.2.593 1944 Unknown [id number] 2.16.840.1.405659.3.579.2.593 1944 Unknown [id number] 2.16.840.1.681708.3.579.2.593 1944 Unknown [id number] 2.16.840.1.378988.3.579.2.593 1944 Unknown [id number] 2.16.840.1.903123.3.579.2.593 1944 Unknown [id number] 2.16.840.1.422267.3.579.2.593 1944 Unknown [id number] 2.16.840.1.412345.3.579.2.593 1944 Unknown [id number] 2.16.840.1.336575.3.579.2.593 1944 Unknown [id number] 2.16.840.1.309232.3.579.2.593 1944 Unknown [id number] 2.16.840.1.035104.3.579.2.593 1944 Unknown [id number] 2.16.840.1.882733.3.579.2.593 1944 Unknown [id number] 2.16.840.1.726752.3.579.2.593 1944 Unknown [id number] 2.16.840.1.225118.3.579.2.593 1944 Unknown [id number] 2.16.840.1.922284.3.579.2.593 1944 Unknown [id number] 2.16.840.1.730270.3.579.2.593 1944 Unknown [id number] 2.16.840.1.847087.3.579.2.593 1944 Unknown [id number] 2.16.840.1.777627.3.579.2.593 1944 Unknown [id number] 2.16.840.1.252182.3.579.2.593 1944 Unknown [id number] 2.16.840.1.354852.3.579.2.593 Medicare Self Pay [id number] Self-pay Self Pay [id number] Unknown [id number] Unknown [id number] Social History Date Type Detail Facility Start: 11-10-2021 End: 04-29-2023 Tobacco smoking status NHIS Never smoked tobacco (finding) [facility] Start: 1945 Sex Assigned At Female F [facility] Start: 06-12-2018 End: 04-29-2023 Tobacco use and exposure Smokeless tobacco non-user [facility] Start: 01-08-2022 End: 08-19-2023 Alcohol intake Current drinker of alcohol (finding) [facility] Start: 06-12-2018 History SDOH Alcohol Comment very rare [facility] Start: 1945 Sex Assigned At Not on file C [facility] Start: 12-29-2021 End: 01-08-2022 Exposure to SARS-CoV-2 (event) Not sure [facility] Start: 04-29-2023 End: 08-19-2023 Sex Assigned At [facility] Tobacco smoking status MAIS Tobacco smoking consumption [facility] Start: 04-29-2023 End: 08-19-2023 History of Social function [facility] Adult Depression Screening Assessment 0 [facility] NEGATED: Highlighted rowStart: NINF History of tobacco use Passive smoker [facility] Goals Date Patient Goal Desired Activity /State Functional Status Date Assessment Result Facility 11-09-2021 Functional status Patient at Baseline [facility] Work Phone: Mental Status Date Assessment Result Facility 11-09-2021 Cognitive function Cognitive Sta tus Patient at Baseline [facility] Work Phone: Clinical Notes 09-16-2020 to 08-19-2023 Telephone Encounter - Clemente Srivastava RN - 08/19/2023 2:47 PM ESTTelephone Encounter - Clemente Srivastava RN - 08/19/2023 2:47 PM ESTTelephone Encounter - Jennifer Aviles - 06/10/2023 12:53 PM EDT Note Date & Type Note Facility 08-19-2023 Note HNO ID: [id number] Author: Sandeep Lenz MD Service: ? Author Type: Physician Type: Progress Notes Filed: 08/20/2023 7:07 AM Note Text: [facility] NAME: Andrew Barros CLINIC NO.: [id number] DATE OF SERVICE: August 19, 2023 (Eduardo) Some elements in this clinic note that are critical to medical decision making have been carefully reviewed and included from a prior clinic note dated: May 20, 2023 ([email or web address]) Referring Provider: Eduardo Sharpe Additional Clinicians involved in Andrew Barros's care: DIAGNOSIS: History of Breast Cancer ASSESSMENT: 77 year old woman with Left breast upper outer quadrant, invasive ductal carcinoma, ER postive, NC positive, 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 Diagnosed 2017. Oncotype testing recurrence score 12 Stopped anticoagulation due to intracranial hemorrhage in 10/2021. Mildly elevated calcium - will send to nephrology. Bone scan negative for osseous mets. Breast tumor markers are negative, PTH-RP remains elevated 3.01 May 2023. Stopped taking Calcium - level normalized. PLAN: Continue Arimidex. Following with PCP for hypercalcemia Could consider Endocrine / Nephrology consult if Calcium and PTH-RP remain elevated. RTC in 3 months - repeat labs Exam same day. Still needs to schedule mammography prior to next visit. May stop Arimidex after next visit. __ HPI: Case History: 09/26/2018 - Started arimidex 09/10/2018 - Completed radiation 06/05/2018 - L breast lumpectomy and SNB Updated Visit, August 19, 2023: Here with daughter Sugey. Didn't see nephrology as kidney function is stable. May still need to see endocrine if Calcium is elevated after having stopped her calcium intake from last visit. However, as labs finally arrived, results did not indicate a need for this follow up. Didn't schedule mammograms yet and will need to. Updated Visit, May 20, 2023: 05/02/2023 Bone Scan - negative for osseous mets. Sugey her daughter is with her. Unclear etiology of hypercalcemia but likely due to renal failure. She is otherwise doing fine. Updated Visit, April 29, 2023: Here with her daughter Janki today. Doing well. Hypercalcemia Getting worked up for ARF. Updated Visit, January 08, 2022: Mammogram results pending from 01/05/2022 11/14/2021 had intracranial hemorrhage with intracerebral hematoma in the right tempora lobe due to HTN and warfarin. Anticoagulation was for A-fib. Had been On Xarelto up until 3 months prior to hemorrhage but needed something cheaper. Updated Visit, July 21, 2021: Andrew Barros returns for scheduled follow-up. Since her last visit there has been no significant medical changes. She has been on Arimidex for 3 years and is tolerating it well. She does experience hot flashes. She denies any muscle and joint aches. She remains on calcium, vitamin D plus a multivitamin. She offers no new complaints today. Overall, she is doing well with no new issues, problems or concerns. 04/24/2021 DEXA scan Impression: World Health Organization classification: Normal-low fracture risk. Updated Visit, April 20, 2021: Andrew is a 75 year old female who presents for her annual visit and to transition her care from her prior physician Dr. Herman. She tells me that her from COVID-19 in 08/2020 age 80. She also had COVID and was hospitalized but (obviously) recovered. The patient remains on Arimidex and is tolerating it well. She has no symptoms or concerns for recurrence. At this time she will continue with that as planned but will also need bone density and to start on Vit-D + Calcium. Mammograms at [facility] on 01/04/2021 Bi-Rads 2 benign. __ REVIEW OF SYSTEMS Per HPI and otherwise negative by full review of organ systems. ECOG PERFORMANCE STATUS: 0 PHYSICAL EXAMINATION: Vitals: BP 148/65 Pulse 67 Temp (Src) 97.7 (Temporal) Resp 16 Ht 5' 4.016 (1.63m) Wt 136 lb 3.2 oz (61.8kg) SpO2 97% BMI 23.37 kg/(m2). Body surface area is 1.67 meters squared. Exam limited to gross visualization where appropriate. Gen.: This is an age-appropriate patient in no acute distress. Head: Appears atraumatic with no visible lesions. Eyes: Pupils equally round and reactive to light, extraocular muscles are intact. Neck: Supple. Respiratory: Appears to be respiring comfortably. Neurologic: Nonfocal to gross visualization. Alert and oriented ?3. Psychiatric: No evidence of inappropriate anxiety or depression. Skin: Visible areas of skin without rash, lesions, wounds or petechiae. ALLERGIES (more content not included)... [facility] 08-19-2023 Miscellaneous Notes Pt aware of Orlando's message. She denies any additional questions, needs or concerns at this time. Clemente Srivastava RN ----- Message from Sandeep Lenz MD sent at 08/19/2023 2:33 PM EST ----- Calcium janki normal. Kidney function is stable documented in this encounter [facility] 06-10-2023 Miscellaneous Notes Called Nephrology office spoke with Paola. She states they did receive this referral and have patient scheduled to see Dr Hartman on 07/03 @ 3:00. Jennifer Covington I called Neph office left message for their office we did re-fax this referral and I was calling to check make sure they received it and see if patient has been scheduled yet. I asked their office to call us back with status of this referral. Jennifer Covington Records re-faxed to Nephrology. Called spoke with Deepika at Nephrology office. She states she has not received this referral and has asked us to please refax it. LISA: Please refax this referral to Nephrology office. Thank You. Jennifer Covington Records faxed to Nephrology. Lisa: Information ready for you. Jennifer Covington Refer to nephrology for hypercalcemia and kidney failure Lisa/Yan: Can you please refer patient and follow up? Thanks! Samina Anderson documented in this encounter [facility] 05-21-2023 Miscellaneous Notes Pt aware of results and denies any questions or concerns at this time. She was transferred to [facility] to set up Q 6 week lab appts as requested. Clemente Srivastava RN ----- Message from Sandeep Lenz MD sent at 05/21/2023 10:15 AM EDT ----- Calcium was improved. - kidney function stable. CBC was normal. documented in this encounter [facility] 05-20-2023 Note HNO ID: [id number] Author: Sandeep Lenz MD Service: ? Author Type: Physician Type: Progress Notes Filed: 05/30/2023 5:58 AM Note Text: [facility] NAME: Papo Andrew [facility] NO.: [id number] DATE OF SERVICE: May 20, 2023 (Eduardo) Some elements in this clinic note that are critical to medical decision making have been carefully reviewed and included from a prior clinic note dated: April 29, 2023 (Eduardo) Referring Provider: Eduardo Sharpe Additional Clinicians involved in Andrew Barros's care: CC: History of Breast Cancer ASSESSMENT: 77 year old woman with Left breast upper outer quadrant, invasive ductal carcinoma, ER postive, NC positive, 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 Diagnosed 2018. Oncotype testing recurrence score 12 Stopped anticoagulation due to intracranial hemorrhage in 10/2021. Mildly elevated calcium - will send to nephrology. Bone scan negative for osseous mets. Breast tumor markers are negative, PTH-RP remains elevated 3.01 May 2023. PLAN: Continue Arimidex. Refer to nephrology for hypercalcemia and kidney failure Repeat labs today RTC in 3 months - repeat labs TREATMENT TO DATE: 3. Started arimidex September 26, 2018 2. Completed radiation September 10, 2018 1. Left breast lumpectomy and SNB, June 05, 2018. HPI: Updated Visit, May 20, 2023: 05/02/2023 Bone Scan - negative for osseous mets. Sugey her daughter is with her. Unclear etiology of hypercalcemia but likely due to renal failure. She is otherwise doing fine. Updated Visit, April 29, 2023: Here with her daughter Janki today. Doing well. Hypercalcemia Getting worked up for ARF. Updated Visit, January 08, 2022: Mammogram results pending from 01/05/2022 11/14/2021 had intracranial hemorrhage with intracerebral hematoma in the right tempora lobe due to HTN and warfarin. Anticoagulation was for A-fib. Had been On Xarelto up until 3 months prior to hemorrhage but needed something cheaper. Updated Visit, July 21, 2021: Andrew Barros returns for scheduled follow-up. Since her last visit there has been no significant medical changes. She has been on Arimidex for 3 years and is tolerating it well. She does experience hot flashes. She denies any muscle and joint aches. She remains on calcium, vitamin D plus a multivitamin. She offers no new complaints today. Overall, she is doing well with no new issues, problems or concerns. 04/24/2021 DEXA scan Impression: World Health Organization classification: Normal-low fracture risk. Updated Visit, April 20, 2021: Andrew is a 75 year old female who presents for her annual visit and to transition her care from her prior physician Dr. Herman. She tells me that her from COVID-19 in 08/2020 age 80. She also had COVID and was hospitalized but (obviously) recovered. The patient remains on Arimidex and is tolerating it well. She has no symptoms or concerns for recurrence. At this time she will continue with that as planned but will also need bone density and to start on Vit-D + Calcium. Mammograms at [facility] on 01/04/2021 Bi-Rads 2 benign. REVIEW OF SYSTEMS Per HPI and otherwise negative by full review of organ systems. ECOG PERFORMANCE STATUS: 0 PHYSICAL EXAMINATION: Vitals: BP 168/72 Pulse 68 Temp (Src) 97.8 (Temporal) Resp 16 Ht 5' 4.016 (1.63m) Wt 129 lb 12.8 oz (58.9kg) SpO2 99% BMI 22.27 kg/(m2). Body surface area is 1.63 meters squared. Exam limited to gross visualization where appropriate. Gen.: This is an age-appropriate patient in no acute distress. Head: Appears atraumatic with no visible lesions. Eyes: Pupils equally round and reactive to light, extraocular muscles are intact. Neck: Supple. Respiratory: Appears to be respiring comfortably. Neurologic: Nonfocal to gross visualization. Alert and oriented ?3. Psychiatric: No evidence of inappropriate anxiety or depression. Skin: Visible areas of skin without rash, lesions, wounds or petechiae. ALLERGIES: ALLERGIES Allergen Reactions Dpqqnll-Dwo-Aao Red* Unknown Other reaction(s): AOF MEDICATIONS: anastrozole (ARIMIDEX) 1 mg tablet TAKE 1 TABLET BY MOUTH EVERY DAY doxazosin (CARDURA) 4 mg tablet Take 4 mg by mouth daily at bedtime. aspirin (ASPIR-81 ORAL) Take 81 mg by mouth once daily. ferrous sulfate 325 mg (65 mg iron) tablet Take 325 mg by mouth once daily. amLODIPine (NORVASC) 2.5 mg tablet Take 5 mg by mouth twice daily. metFORMIN (GLUCOPHAGE) 500 mg tablet Take 500 mg by mouth twice daily. bimatoprost (LUMIGAN) 0.01 % drop ophthalmic drops 1 Drop as directed. propafenone SR (RYTHMOL SR) 325 mg 12 hr capsule Take 325 mg by mouth q 12 HR. potassium chloride (K-TAB) 10 mEq tablet Potassium Chloride Active 10 MEQ PO Daily September 22, 2020 12:10pm See your shae (more content not included)... [facility] 05-20-2023 Instructions Sandeep Lenz MD - 05/20/2023 3:59 PM EDT Continue Arimidex. Refer to nephrology for hypercalcemia and kidney failure Repeat labs today RTC in 3 months - repeat labs documented in this encounter [facility] 05-20-2023 History of Presen t illness Narrative Kathy nephrology NAME: Andrew Barros [facility] NO.: [id number] DATE OF SERVICE: May 20, 2023 (Eduardo) Some elements in this clinic note that are critical to medical decision making have been carefully reviewed and included from a prior clinic note dated: April 29, 2023 (Eduardo) Referring Provider: Eduardo Sharpe Additional Clinicians involved in Andrewpeter Barros's care: CC: History of Breast Cancer ASSESSMENT: 77 year old woman with Left breast upper outer quadrant, invasive ductal carcinoma, ER postive, NC positive, 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 Diagnosed 2018. Oncotype testing recurrence score 12 Stopped anticoagulation due to intracranial hemorrhage in 10/2021. Mildly elevated calcium - will send to nephrology. Bone scan negative for osseous mets. Breast tumor markers are negative, PTH-RP remains elevated 3.01 May 2023. PLAN: Continue Arimidex. Refer to nephrology for hypercalcemia and kidney failure Repeat labs today RTC in 3 months - repeat labs TREATMENT TO DATE: 3. Started arimidex September 26, 2018 2. Completed radiation September 10, 2018 1. Left breast lumpectomy and SNB, June 05, 2018. HPI: Updated Visit, May 20, 2023: 05/02/2023 Bone Scan - negative for osseous mets. Sugey her daughter is with her. Unclear etiology of hypercalcemia but likely due to renal failure. She is otherwise doing fine. Updated Visit, April 29, 2023: Here with her daughter Janki today. Doing well. Hypercalcemia Getting worked up for ARF. Updated Visit, January 08, 2022: Mammogram results pending from 01/05/2022 11/14/2021 had intracranial hemorrhage with intracerebral hematoma in the right tempora lobe due to HTN and warfarin. Anticoagulation was for A-fib. Had been On Xarelto up until 3 months prior to hemorrhage but needed something cheaper. Updated Visit, July 21, 2021: Andrew Barros returns for scheduled follow-up. Since her last visit there has been no significant medical changes. She has been on Arimidex for 3 years and is tolerating it well. She does experience hot flashes. She denies any muscle and joint aches. She remains on calcium, vitamin D plus a multivitamin. She offers no new complaints today. Overall, she is doing well with no new issues, problems or concerns. 04/24/2021 DEXA scan Impression: World Health Organization classification: Normal-low fracture risk. Updated Visit, April 20, 2021: Andrew is a 75 year old female who presents for her annual visit and to transition her care from her prior physician Dr. Herman. She tells me that her from COVID-19 in 08/2020 age 80. She also had COVID and was hospitalized but (obviously) recovered. The patient remains on Arimidex and is tolerating it well. She has no symptoms or concerns for recurrence. At this time she will continue with that as planned but will also need bone density and to start on Vit-D + Calcium. Mammograms at [facility] on 01/04/2021 Bi-Rads 2 benign. REVIEW OF SYSTEMS Per HPI and otherwise negative by full review of organ systems. ECOG PERFORMANCE STATUS: 0 PHYSICAL EXAMINATION: Vitals: BP 168/72 Pulse 68 Temp (Src) 97.8 (Temporal) Resp 16 Ht 5' 4.016 (1.63m) Wt 129 lb 12.8 oz (58.9kg) SpO2 99% BMI 22.27 kg/(m^2). Body surface area is 1.63 meters squared. Exam limited to gross visualization where appropriate. Gen.: This is an age-appropriate patient in no acute distress. Head: Appears atraumatic with no visible lesions. Eyes: Pupils equally round and reactive to light, extraocular muscles are intact. Neck: Supple. Respiratory: Appears to be respiring comfortably. Neurologic: Nonfocal to gross visualization. Alert and oriented 3. Psychiatric: No evidence of inappropriate anxiety or depression. Skin: Visible areas of skin without rash, lesions, wounds or petechiae. ALLERGIES: ALLERGIES Allergen Reactions Gwtadmv-Sfn-Mdm Red* Unknown Other reaction(s): AOF MEDICATIONS: anastrozole (ARIMIDEX) 1 mg tablet TAKE 1 TABLET BY MOUTH EVERY DAY doxazosin (CARDURA) 4 mg tablet Take 4 mg by mouth daily at bedtime. aspirin (ASPIR-81 ORAL) Take 81 mg by mouth once daily. ferrous sulfate 325 mg (65 mg iron) tablet Take 325 mg by mouth once daily. amLODIPine (NORVASC) 2.5 mg tablet Take 5 mg by mouth twice daily. metFORMIN (GLUCOPHAGE) 500 mg tablet Take 500 mg by mouth twice daily. bimatoprost (LUMIGAN) 0.01 % drop ophthalmic drops 1 Drop as directed. propafenone SR (RYTHMOL SR) 325 mg 12 hr capsule Take 325 mg by mouth q 12 HR. potassium chloride (K-TAB) 10 mEq tablet Potassium Chloride Active 10 MEQ PO Daily September 22, 2020 12:10pm See your primary care provider or cardiology for refills omeprazole (PRILOSEC) 40 mg capsule Take 40 mg by mouth once daily. calcium-cholecalciferol, D3, (OSCAL+D 250) 250-125 mg-unit per tablet Take 1 tablet by mouth twice daily. ezetimibe (ZETIA) 10 mg tablet Take 10 mg by mouth once daily. carvedilol (COREG) 25 mg tablet Take 25 mg by mouth as directed. Takes 1 1/2 tablet 2x a day Multivitamin capsule Take 1 capsule by mouth once daily. furosemide (LASIX) 40 mg tablet Take 40 mg by mouth once daily. rivaroxaban (XARELTO) 20 mg tablet Take 20 mg by mouth daily with dinner. (Patient not taking: Reported on 01/08/2022) LABORATORY VALUES: WBC (k/uL) Date Value 05/20/2023 10.90 RBC (m/uL) Date Value 05/20/2023 4.10 Hemoglobin (g/dL) Date Value 05/20/2023 13.0 Hematocrit (%) Date Value 05/20/2023 38.7 MCV (fL) Date Value 05/20/2023 94.4 MCH (pg) Date Value 05/20/2023 31.7 MCHC (g/dL) Date Value 05/20/2023 33.6 RDW-CV (%) Date Value 05/20/2023 12.8 Platelet Count (k/uL) Date Value 05/20/2023 293 MPV (fL) Date Value 05/20/2023 12.1 Glucose (mg/dL) Date Value 05/20/2023 119 (H) BUN (mg/dL) Date Value 05/20/2023 32 (H) Creatinine (mg/dL) Date Value 05/20/2023 1.32 (H) Sodium (mmol/L) Date Value 05/20/2023 140 Potassium (mmol/L) Date Value 05/20/2023 4.1 Chloride (mmol/L) Date Value 05/20/2023 101 CO2 (mmol/L) Date Value 05/20/2023 26 Protein, Total (g/dL) Date Value 05/20/2023 7.6 Albumin (g/dL) Date Value 05/20/2023 4.6 Calcium, Total (mg/dL) Date Value 05/20/2023 10.0 Alkaline Phosphatase (U/L) Date Value 05/20/2023 96 Bilirubin, Total (mg/dL) Date Value 05/20/2023 0.3 AST (U/L) Date Value 05/20/2023 18 ALT (U/L) Date Value 05/20/2023 13 DIAGNOSIS: (E83.52) Hypercalcemia (primary encounter diagnosis) Plan: CBC + DIFF, COMP METABOLIC PANEL, CALCIUM IONIZED BLOOD, CALCIUM TOTAL BLD, CONSULT TO KIDNEY MEDICINE (C50.412, Z17.0) Malignant neoplasm of upper-outer quadrant of left breast in female, estrogen receptor positive (HCC) Plan: CBC + DIFF, COMP METABOLIC PANEL, CALCIUM IONIZED BLOOD, CALCIUM TOTAL BLD (N18.30) Stage 3 chronic kidney disease, unspecified whether stage 3a or 3b CKD (HCC) Plan: CBC + DIFF, COMP METABOLIC PANEL, CALCIUM IONIZED BLOOD, CALCIUM TOTAL BLD, CONSULT TO KIDNEY MEDICINE PAST MEDICAL HISTORY Diagnosis Date Atrial fibrillation (HCC) Brain bleed (HCC) Cancer (HCC) 05/2018 breast cancer Diabetes (HCC) Hyperlipidemia Hypertension Other specified menopausal and perimenopausal disorders 04/20/2021 PAST SURGICAL HISTORY Procedure Laterality Date CATARACT EXTRACTION HX Social History Tobacco Use Smoking status: Never Passive exposure: Never Smokeless tobacco: Never Substance Use Topics Alcohol use: Yes Comment: very rare Drug use: Not Currently No family history on file. I spent a total of 30 minutes on the date of the service which included preparing to see the patient, [id number] patient care, completing clinical documentation, obtaining and/or reviewing separately obtained history, performing a medically appropriate examination, communicating results to the patient/family/caregiver and care coordination (not separately reported). Sandeep Lenz MD, CPE Services Provided at: [place], [place] & [place], [place] CC: Eduardo Sharpe MD [address] [facility] [id number] documented in this encounter [facility] 05-09-2023 Note HNO ID: [id number] Author: Aleida Vargas LSW Service: ? Author Type: Dry Janitor Type: Progress Notes Filed: 05/09/2023 11:00 AM Note Text: Patient appears on the [facility] First Time Treatment List for a non-oncology treatment. No psychosocial assessment is indicated. DAPHNE Gupta [facility] 05-09-2023 History of Presen t illness Narrative Patient appears on the [facility] First Time Treatment List for a non-oncology treatment. No psychosocial assessment is indicated. DAPHNE Gupta documented in this encounter [facility] 04-29-2023 Note HNO ID: [id number] Author: Sandeep Lenz MD Service: ? Author Type: Physician Type: Progress Notes Filed: 05/05/2023 6:04 PM Note Text: NAME: Andrew Barros [facility] NO.: [id number] DATE OF SERVICE: April 29, 2023 (Eduardo) Some elements in this clinic note that are critical to medical decision making have been carefully reviewed and included from a prior clinic note dated: January 08, 2022 (Eduardo) Referring Provider: Eduardo Sharpe Additional Clinicians involved in Andrew Barros's care: CC: History of Breast Cancer ASSESSMENT: 77 year old woman with Left breast upper outer quadrant, invasive ductal carcinoma, ER postive, NC positive, 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 Diagnosed 2018. Oncotype testing recurrence score 12 Stopped anticoagulation due to intracranial hemorrhage in 10/2021. Mildly elevated calcium - will recheck in future. PLAN: Continue Arimidex. Stop Calcium Continue Vitamin D. Zometa for hypercalcemia later this week Repeat labs and tumor markers prior to zometa Bone scan - [facility] is fine. RTC after Bone scan TREATMENT TO DATE: 3. Started arimidex September 26, 2018 2. Completed radiation September 10, 2018 1. Left breast lumpectomy and SNB, June 05, 2018. HPI: Updated Visit, April 29, 2023: Here with her daughter Janki kaufman. Doing well. Hypercalcemia Getting worked up for ARF. Updated Visit, January 08, 2022: Mammogram results pending from 01/05/2022 11/14/2021 had intracranial hemorrhage with intracerebral hematoma in the right tempora lobe due to HTN and warfarin. Anticoagulation was for A-fib. Had been On Xarelto up until 3 months prior to hemorrhage but needed something cheaper. Updated Visit, July 21, 2021: Andrew Barros returns for scheduled follow-up. Since her last visit there has been no significant medical changes. She has been on Arimidex for 3 years and is tolerating it well. She does experience hot flashes. She denies any muscle and joint aches. She remains on calcium, vitamin D plus a multivitamin. She offers no new complaints today. Overall, she is doing well with no new issues, problems or concerns. 04/24/2021 DEXA scan Impression: World Health Organization classification: Normal-low fracture risk. Updated Visit, April 20, 2021: Andrew is a 75 year old female who presents for her annual visit and to transition her care from her prior physician Dr. Herman. She tells me that her from COVID-19 in 08/2020 age 80. She also had COVID and was hospitalized but (obviously) recovered. The patient remains on Arimidex and is tolerating it well. She has no symptoms or concerns for recurrence. At this time she will continue with that as planned but will also need bone density and to start on Vit-D + Calcium. Mammograms at [facility] on 01/04/2021 Bi-Rads 2 benign. REVIEW OF SYSTEMS Per HPI and otherwise negative by full review of organ systems. ECOG PERFORMANCE STATUS: 0 PHYSICAL EXAMINATION: Vitals: BP 153/66 Pulse 66 Temp (Src) 97 (Temporal) Resp 16 Ht 5' 4.016 (1.63m) Wt 128 lb 6.4 oz (58.2kg) SpO2 96% BMI 22.03 kg/(m2). Body surface area is 1.62 meters squared. General:This is an age-appropriate patient in no acute distress. Head: Atraumatic, symmetric with no lesions visible. Eyes: Pupils equally round and reactive to light, extraocular muscles intact. Neck: Supple Mouth: Mucous membranes are moist, no thrush is noted. Lungs: Clear to auscultation bilaterally with no wheezes crackles or rales. Cardiovascular: Regular rate and rhythm with no murmurs or gallops. No Afib Peripheral pulses: Normal. Gastrointestinal: Soft, nontender, normoactive bowel sounds, with no appreciable hepatosplenomegaly. Musculoskeletal: No appreciable bony abnormalities or tenderness. Extremities: Lower extremities without edema. Neurologic: Nonfocal to gross visualization. Alert and oriented ?3. Psychiatric: No evidence of inappropriate anxiety or depression. Skin: No overt rashes wounds or petechiae. Lymph node exam: No appreciable lymphadenopathy in cervical supraclavicular or axillary lymph node chains. Chaperoned breast exam normal right female breast. Left breast with upper outer quadrant scar healed and with evidence of recurring mass. ALLERGIES: ALLERGIES Allergen Reactions Bdjzwjy-Dqt-Szz Red* Unknown Other reaction(s): AOF MEDICATIONS: doxazosin (CARDURA) 4 mg tablet Take 4 mg by mouth daily at bedtime. aspirin (ASPIR-81 ORAL) Take 81 mg by mouth once daily. ferrous sulfate 325 mg (65 mg iron) tablet Take 325 mg by mouth once daily. anastrozole (ARIMIDEX) 1 mg tablet TAKE 1 TABLET BY MOUTH EVERY DAY amLODIPine (NORVASC) 2.5 mg tablet Take 5 mg by mouth twice daily. metFORMIN (GLUCOPHAGE) 500 mg tablet Take 500 mg by mouth twice elaine (more content not included)... [facility] 04-29-2023 Instructions Sandeep Lenz MD - 04/29/2023 4:09 PM EDT Continue Arimidex. Stop Calcium Continue Vitamin D. Zometa for hypercalcemia later this week Repeat labs and tumor markers prior to zometa Bone scan - [facility] is fine. RTC after Bone scan documented in this encounter [facility] 04-29-2023 History of Presen t illness Narrative Images from the original note were not included. 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 Diagnosed 2017. Oncotype testing recurrence score 12 Stopped anticoagulation due to intracranial hemorrhage in 10/2021. Mildly elevated calcium - will recheck in future. PLAN: Continue Arimidex. Stop Calcium Continue Vitamin D. Zometa for hypercalcemia later this week Repeat labs and tumor markers prior to zometa Bone scan - [facility] is fine. RTC after Bone scan TREATMENT TO DATE: 3. Started arimidex September 26, 2018 2. Completed radiation September 10, 2018 1. Left breast lumpectomy and SNB, June 05, 2018. HPI: Updated Visit, April 29, 2023: Here with her daughter Janki today. Doing well. Hypercalcemia Getting worked up for ARF. Updated Visit, January 08, 2022: Mammogram results pending from 01/05/2022 11/14/2021 had intracranial hemorrhage with intracerebral hematoma in the right tempora lobe due to HTN and warfarin. Anticoagulation was for A-fib. Had been On Xarelto up until 3 months prior to hemorrhage but needed something cheaper. Updated Visit, July 21, 2021: Andrew Barros returns for scheduled follow-up. Since her last visit there has been no significant medical changes. She has been on Arimidex for 3 years and is tolerating it well. She does experience hot flashes. She denies any muscle and joint aches. She remains on calcium, vitamin D plus a multivitamin. She offers no new complaints today. Overall, she is doing well with no new issues, problems or concerns. 04/24/2021 DEXA scan Impression: World Health Organization classification: Normal-low fracture risk. Updated Visit, April 20, 2021: Andrew is a 75 year old female who presents for her annual visit and to transition her care from her prior physician Dr. Herman. She tells me that her from COVID-19 in 08/2020 age 80. She also had COVID and was hospitalized but (obviously) recovered. The patient remains on Arimidex and is tolerating it well. She has no symptoms or concerns for recurrence. At this time she will continue with that as planned but will also need bone density and to start on Vit-D + Calcium. Mammograms at [facility] on 01/04/2021 Bi-Rads 2 benign. REVIEW OF SYSTEMS Per HPI and otherwise negative by full review of organ systems. ECOG PERFORMANCE STATUS: 0 PHYSICAL EXAMINATION: Vitals: BP 153/66 Pulse 66 Temp (Src) 97 (Temporal) Resp 16 Ht 5' 4.016 (1.63m) Wt 128 lb 6.4 oz (58.2kg) SpO2 96% BMI 22.03 kg/(m^2). Body surface area is 1.62 meters squared. General:This is an age-appropriate patient in no acute distress. Head: Atraumatic, symmetric with no lesions visible. Eyes: Pupils equally round and reactive to light, extraocular muscles intact. Neck: Supple Mouth: Mucous membranes are moist, no thrush is noted. Lungs: Clear to auscultation bilaterally with no wheezes crackles or rales. Cardiovascular: Regular rate and rhythm with no murmurs or gallops. No Afib Peripheral pulses: Normal. Gastrointestinal: Soft, nontender, normoactive bowel sounds, with no appreciable hepatosplenomegaly. Musculoskeletal: No appreciable bony abnormalities or tenderness. Extremities: Lower extremities without edema. Neurologic: Nonfocal to gross visualization. Alert and oriented 3. Psychiatric: No evidence of inappropriate anxiety or depression. Skin: No overt rashes wounds or petechiae. Lymph node exam: No appreciable lymphadenopathy in cervical supraclavicular or axillary lymph node chains. Chaperoned breast exam normal right female breast. Left breast with upper outer quadrant scar healed and with evidence of recurring mass. ALLERGIES: ALLERGIES Allergen Reactions Thwyncl-Wlk-Ufz Red* Unknown Other reaction(s): AOF MEDICATIONS: doxazosin (CARDURA) 4 mg tablet Take 4 mg by mouth daily at bedtime. aspirin (ASPIR-81 ORAL) Take 81 mg by mouth once daily. ferrous sulfate 325 mg (65 mg iron) tablet Take 325 mg by mouth once daily. anastrozole (ARIMIDEX) 1 mg tablet TAKE 1 TABLET BY MOUTH EVERY DAY amLODIPine (NORVASC) 2.5 mg tablet Take 5 mg by mouth twice daily. metFORMIN (GLUCOPHAGE) 500 mg tablet Take 500 mg by mouth twice daily. bimatoprost (LUMIGAN) 0.01 % drop ophthalmic drops 1 Drop as directed. propafenone SR (RYTHMOL SR) 325 mg 12 hr capsule Take 325 mg by mouth q 12 HR. potassium chloride (K-TAB) 10 mEq tablet Potassium Chloride Active 10 MEQ PO Daily September 22, 2020 12:10pm See your primary care provider or cardiology for refills omeprazole (PRILOSEC) 40 mg capsule Take 40 mg by mouth once daily. calcium-cholecalciferol, D3, (OSCAL+D 250) 250-125 mg-unit per tablet Take 1 tablet by mouth twice daily. ezetimibe (ZETIA) 10 mg tablet Take 10 mg by mouth once daily. carvedilol (COREG) 25 mg tablet Take 25 mg by mouth as directed. Takes 1 1/2 tablet 2x a day Multivitamin capsule Take 1 capsule by mouth once daily. furosemide (LASIX) 40 mg tablet Take 40 mg by mouth once daily. rivaroxaban (XARELTO) 20 mg tablet Take 20 mg by mouth daily with dinner. (Patient not taking: Reported on 01/08/2022) LABORATORY VALUES: WBC (k/uL) Date Value 04/30/2023 9.38 RBC (m/uL) Date Value 04/30/2023 3.81 (L) Hemoglobin (g/dL) Date Value 04/30/2023 12.2 Hematocrit (%) Date Value 04/30/2023 36.4 MCV (fL) Date Value 04/30/2023 95.5 MCH (pg) Date Value 04/30/2023 32.0 MCHC (g/dL) Date Value 04/30/2023 33.5 RDW-CV (%) Date Value 04/30/2023 12.7 Platelet Count (k/uL) Date Value 04/30/2023 252 MPV (fL) Date Value 04/30/2023 11.9 Glucose (mg/dL) Date Value 04/30/2023 207 (H) BUN (mg/dL) Date Value 04/30/2023 39 (H) Creatinine (mg/dL) Date Value 04/30/2023 1.38 (H) Sodium (mmol/L) Date Value 04/30/2023 138 Potassium (mmol/L) Date Value 04/30/2023 3.7 Chloride (mmol/L) Date Value 04/30/2023 98 CO2 (mmol/L) Date Value 04/30/2023 26 Protein, Total (g/dL) Date Value 04/30/2023 6.9 Albumin (g/dL) Date Value 04/30/2023 4.3 Calcium, Total (mg/dL) Date Value 04/30/2023 10.6 (H) Alkaline Phosphatase (U/L) Date Value 04/30/2023 93 Bilirubin, Total (mg/dL) Date Value 04/30/2023 0.3 AST (U/L) Date Value 04/30/2023 18 ALT (U/L) Date Value 04/30/2023 14 DIAGNOSIS: (C50.412, Z17.0) Malignant neoplasm of upper-outer quadrant of left breast in female, estrogen receptor positive (HCC) (primary encounter diagnosis) Plan: CA 27.29 BLOOD, CA 15-3 BLD, CBC + DIFF, COMP METABOLIC PANEL, PTH, INTACT (WITHOUT CALCIUM), PTH RELATED PEPTIDE, PTH, INTACT (WITHOUT CALCIUM), DISCONTINUED: PHARMACY COMMUNICATION PATIENT ARRIVED, DISCONTINUED: acetaminophen 650 mg tab(s) (TYLENOL), DISCONTINUED: zoledronic hn-mnidfqph-7.9NaCl 4 mg iv piggyback 100 mL (ZOMETA) (E83.52) Hypercalcemia Plan: CA 27.29 BLOOD, CA 15-3 BLD, CBC + DIFF, COMP METABOLIC PANEL, PTH, INTACT (WITHOUT CALCIUM), PTH RELATED PEPTIDE, PTH, INTACT (WITHOUT CALCIUM), DISCONTINUED: PHARMACY COMMUNICATION PATIENT ARRIVED, DISCONTINUED: acetaminophen 650 mg tab(s) (TYLENOL), DISCONTINUED: zoledronic gh-nwcojjmt-3.9NaCl 4 mg iv piggyback 100 mL (ZOMETA) (C50.919, Z17.0) Malignant neoplasm of breast in female, estrogen receptor positive, unspecified laterality, unspecified site of breast (HCC) Plan: NM BONE WHOLE BODY (N18.30) Stage 3 chronic kidney disease, unspecified whether stage 3a or 3b CKD (HCC) PAST MEDICAL HISTORY Diagnosis Date Atrial fibrillation (HCC) Brain bleed (HCC) Cancer (HCC) 05/2018 breast cancer Diabetes (HCC) Hyperlipidemia Hypertension Other specified menopausal and perimenopausal disorders 04/20/2021 PAST SURGICAL HISTORY Procedure Laterality Date CATARACT EXTRACTION HX Social History Tobacco Use Smoking status: Never Passive exposure: Never Smokeless tobacco: Never Substance Use Topics Alcohol use: Yes Comment: very rare Drug use: Not Currently No family history on file. I spent a total of 30 minutes on the date of the service which included preparing to see the patient, [id number] patient care, completing clinical documentation, obtaining and/or reviewing separately obtained history, performing a medically appropriate examination, communicating results to the patient/family/caregiver and care coordination (not separately reported). Sandeep Lenz MD, CPE Services Provided at: [place], [place] & [place], [place] CC: Eduardo Sharpe MD [address] [facility] [id number] documented in this encounter [facility] 04-01-2023 Note OR Cardiology - [facility] Subjective Andrew Barros is a 77 y.o. year old female patient being seen for 3 month F/u on Atrial Fibrillation and Hypertension Patient Active Problem List Diagnosis Congestive heart failure (CMS/HCC) Hypertensive disorder Malignant neoplasm of upper-outer quadrant of left breast in female, estrogen receptor positive (CMS/HCC) Mitral valve regurgitation Other specified menopausal and perimenopausal disorders Paroxysmal atrial fibrillation (CMS/HCC) Type 2 diabetes mellitus (CMS/HCC) History of intracranial hemorrhage Family History Problem Relation Name Age of Onset Coronary artery disease Mother Coronary artery disease Father Coronary artery disease Sister Coronary artery disease Brother Social History Tobacco Use Smoking status: Never Smokeless tobacco: Never Substance Use Topics Alcohol use: Not Currently HPI Andrew is seen in follow-up. She is a 77-year-old woman with prior history of hypertension, paroxysmal atrial fibrillation status post cardioversion in 2018, maintained on propafenone therapy. She has history of diastolic heart failure maintained on Lasix. She has diabetes on metformin. In October 2021 she developed intracerebral bleeding and was taken off of anticoagulation. She recovered. Follow-up brain imaging showed no active bleeding. Her neurosurgeon cleared her to be on short-term anticoagulation. She has a history of recurrent falls and in December 2021 she sustained a syncopal event while in the shower in the setting of low blood pressure. This syncope did not recurred again. She underwent a Holter monitor that did not show evidence of pauses. On 12/05/2021 she was evaluated by Dr. Haresh Farmer and she was deemed not a candidate for atrial fibrillation ablation due to inability to rate long-term anticoagulation. Dr. Farmer had a discussion with the patient and with her primary care physician Dr. Sharpe that she would need watchman consideration. On 04/23/2022 I had a discussion with her regarding the watchman procedure. We proceeded with transesophageal echocardiogram that showed and appendage suitable for the watchman device. There was evidence of mitral valve prolapse with moderate mitral regurgitation. 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 Since then she has had issues with gout and was treated with prednisone, indomethacin and developed a lot of swelling in the legs and was given spironolactone for 4 days by her PCP which she finishes tomorrow. Her blood pressure has been variable but mostly elevated. She reports that after last visit when I increased her amlodipine from 2.5 mg to 5 mg daily her blood pressure dropped significantly. Carvedilol was later reduced to 12.5 mg twice daily by her PCP. In February 2023 she was admitted to the [facility] emergency room with epistaxis. She was treated with packing. In December 2022 she was seen in clinic, lisinopril 5 mg daily was added to control blood pressures. Her follow up renal function showed worsening. Currently she denies angina and heart failure symptoms. She has mild intermittent lower extremity edema. She has no palpitations. Review of Systems Constitutional: Positive for malaise/fatigue. Cardiovascular: Negative for chest pain, dyspnea on exertion, irregular heartbeat, leg swelling, orthopnea, palpitations and syncope. Respiratory: Negative for cough and shortness of breath. Musculoskeletal: Negative for arthritis, falls and neck pain. Gastrointestinal: Negative for diarrhea and dysphagia. Neurological: Negative for light-headedness and loss of balance. Objective Visit Vitals BP 152/78 (BP Location: Right arm) Pulse 65 Wt 57.6 kg (127 lb) SpO2 96% BMI 21.13 kg/m??? Smoking Status Never BSA 1.63 m??? Physical Exam Constitutional: Appearance: She is well-developed. She is not ill-appearing. Comments: Thin appearing HENT: Head: Normocephalic and atraumatic. Nose: Nose normal. Eyes: General: No scleral icterus. Pupils: Pupils are equal, round, and reactive to light. Neck: Thyroid: No thyromegaly. Vascular: No JVD. Cardiovascular: Rate and Rhythm: Normal rate and regular rhythm. Pulses: Radial pulses are 2+ on the right side and 2+ on the left side. Heart sounds: Normal heart sounds. No murmur heard. No friction rub. No gallop. Pulmonary: Effort: Pulmonary effort is normal. No respiratory distress. Breath sounds: Normal breath sounds. No wheezing or rales. Chest: Chest wall: No tenderness. Abdominal: General: Bowel sounds are normal. There is no distension. Palpations: Abdomen is soft. Tenderness: There is no abdominal tenderness. Musculoskeletal: General: No swelling. Cervical back: Neck supple. Right lower le+ Pitting Edema present. Left lower le+ Pitting Edema present. Comments: Uses cane to assist with ambulation Skin: General: Skin i (more content not included)... [facility] 01-14-2023 Note Cardiology Clinic No te Subjective Andrew Barros is a 77 y.o. year old female patient past medical history of paroxysmal atrial fibrillation status post cardioversion now on propafenone, mitral valve regurgitation, and hypertension seen in follow-up. Presents today with her daughter. They report that they have reconsidered and do not want to proceed with Watchman device which was previously discussed with Dr. Sandovla. She is otherwise doing well, denies chest pain or palpitations. Hypertensive here today. Patient Active Problem List Diagnosis Congestive heart failure (CMS/HCC) Hypertensive disorder Malignant neoplasm of upper-outer quadrant of left breast in female, estrogen receptor positive (CMS/HCC) Mitral valve regurgitation Other specified menopausal and perimenopausal disorders Paroxysmal atrial fibrillation (CMS/HCC) Type 2 diabetes mellitus (CMS/HCC) History of intracranial hemorrhage Family History Problem Relation Name Age of Onset Coronary artery disease Mother Coronary artery disease Father Coronary artery disease Sister Coronary artery disease Brother Social History Tobacco Use Smoking status: Never Smokeless tobacco: Never Substance Use Topics Alcohol use: Not Currently HPI Last HPI per Dr. Sandoval: Andrew is seen in follow-up and to discuss left atrial appendage closure. She is a 76-year-old woman with prior history of hypertension, paroxysmal atrial fibrillation status post cardioversion in 2018, maintained on propafenone therapy. She has history of diastolic heart failure maintained on Lasix. She has diabetes on metformin In October 2021 she developed intracerebral bleeding and was taken off of anticoagulation. She recovered. Follow-up brain imaging showed no active bleeding. Her neurosurgeon cleared her to be on short-term anticoagulation. She has a history of recurrent falls and in December 2021 she sustained a syncopal event while in the shower in the setting of low blood pressure. This syncope did not recurred again. She underwent a Holter monitor that did not show evidence of pauses. Currently she denies angina and heart failure symptoms. She has mild intermittent lower extremity edema. She reports occasional palpitations. On 12/05/2021 she was evaluated by Dr. Haresh Farmer and she was deemed not a candidate for atrial fibrillation ablation due to inability to rate long-term anticoagulation. Dr. Farmer had a discussion with the patient and with her primary care physician Dr. Sharpe that she would need watchman consideration. On 04/23/2022 I had a discussion with her regarding the watchman procedure. We proceeded with transesophageal echocardiogram that showed and appendage suitable for the watchman device. There was evidence of mitral valve prolapse with moderate mitral regurgitation. 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 Since then she has had issues with gout and was treated with prednisone, indomethacin and developed a lot of swelling in the legs and was given spironolactone for 4 days by her PCP which she finishes tomorrow. Her blood pressure has been variable but mostly elevated. She reports that after last visit when I increased her amlodipine from 2.5 mg to 5 mg daily her blood pressure dropped significantly. Carvedilol was later reduced to 12.5 mg twice daily by her PCP. 09/03/2022 -She c/o feeling fatigued. -She was recently discharged from [facility] d/t PNA and sepsis. She was also found to have c.diff. She received IV fluids for sepsis but then developed flash pulmonary edema. She was diuresed and discharged home on PO abx. She was also started on digoxin for a.fib with RVR. Similar scenario occurred back in June where she developed PNA and sepsis. -She c/o muscle weakness. -She denies CP, orthopnea, PND, dizziness/LH, palpitations. -Her LE swelling has been improved since her recent admission, she is wearing compression stockings. -Her BP was recently low at her PCP office and amlodipine was held. She states her BP at home has been well controlled running 110-120s/70s. -Her daughter accompanied her today. Review of Systems Cardiovascular: Negative for chest pain, claudication, dyspnea on exertion, irregular heartbeat, leg swelling, near-syncope, orthopnea, palpitations, paroxysmal nocturnal dyspnea and syncope. Objective Visit Vitals BP 165/80 (BP Location: Right arm, Patient Position: Sitting) Pulse 62 Ht 1.651 m (5' 5 ) Wt 59.4 kg (131 lb) SpO2 98% BMI 21.80 kg/m??? Smoking Status Never BSA 1.65 m??? Physical Exam General: Awake, alert, good spirits. NAD Pulm: Breath sounds clear to ascultation bilaterally with no wheeze, crackles or rhonchi Cards: Regular rate and rhythm, S1, S2. No S3 or S4 gallop. Murmur: none Abd: Soft, Nontender, physiologic bowel sounds are present Extr: Lower extremity edema: trace. Skin: warm, dry, well perfused Neuro: A&Ox3, (more content not included)... [facility] 09-03-2022 Note Patient here for 3 m o follow up PAF and to re-discuss the Watchman device. Most recent hospital discharge was 08/24/22 from [facility]. She was started on digoxin. She saw Dr. Sharpe last week for hospital follow up and her amlodipine was put on hold for now due to hypotension. C/o fatigue. She's using O2 at night. Review of Systems Constitutional: Positive for malaise/fatigue and weight loss. Musculoskeletal: Positive for muscle weakness. All other systems reviewed and are negative. [facility] 09-03-2022 Note Cardiovascular Medic eliud [facility] Cardiology SUBJECTIVE Chief Complaint Patient presents with Hospital Follow-up Andrew Barros is a 76 y.o. female here for follow-up. HPI Patient here for 3 mo follow up PAF and to re-discuss the Watchman device. Most recent hospital discharge was 08/24/22 from [facility]. She was started on digoxin. She saw Dr. Sharpe last week for hospital follow up and her amlodipine was put on hold for now due to hypotension. C/o fatigue. She's using O2 at night. 09/03/2022 -She c/o feeling fatigued. -She was recently discharged from [facility] d/t PNA and sepsis. She was also found to have c.diff. She received IV fluids for sepsis but then developed flash pulmonary edema. She was diuresed and discharged home on PO abx. She was also started on digoxin for a.fib with RVR. Similar scenario occurred back in June where she developed PNA and sepsis. -She c/o muscle weakness. -She denies CP, orthopnea, PND, dizziness/LH, palpitations. -Her LE swelling has been improved since her recent admission, she is wearing compression stockings. -Her BP was recently low at her PCP office and amlodipine was held. She states her BP at home has been well controlled running 110-120s/70s. -Her daughter accompanied her today. Last HPI per Dr. Sandoval: Andrew is seen in follow-up and to discuss left atrial appendage closure. She is a 76-year-old woman with prior history of hypertension, paroxysmal atrial fibrillation status post cardioversion in 2017, maintained on propafenone therapy. She has history of diastolic heart failure maintained on Lasix. She has diabetes on metformin In October 2021 she developed intracerebral bleeding and was taken off of anticoagulation. She recovered. Follow-up brain imaging showed no active bleeding. Her neurosurgeon cleared her to be on short-term anticoagulation. She has a history of recurrent falls and in December 2021 she sustained a syncopal event while in the shower in the setting of low blood pressure. This syncope did not recurred again. She underwent a Holter monitor that did not show evidence of pauses. Currently she denies angina and heart failure symptoms. She has mild intermittent lower extremity edema. She reports occasional palpitations. On 12/05/2021 she was evaluated by Dr. Haresh Farmer and she was deemed not a candidate for atrial fibrillation ablation due to inability to rate long-term anticoagulation. Dr. Farmer had a discussion with the patient and with her primary care physician Dr. Sharpe that she would need watchman consideration. On 04/23/2022 I had a discussion with her regarding the watchman procedure. We proceeded with transesophageal echocardiogram that showed and appendage suitable for the watchman device. There was evidence of mitral valve prolapse with moderate mitral regurgitation. 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 Since then she has had issues with gout and was treated with prednisone, indomethacin and developed a lot of swelling in the legs and was given spironolactone for 4 days by her PCP which she finishes tomorrow. Her blood pressure has been variable but mostly elevated. She reports that after last visit when I increased her amlodipine from 2.5 mg to 5 mg daily her blood pressure dropped significantly. Carvedilol was later reduced to 12.5 mg twice daily by her PCP. Patient Active Problem List Diagnosis Congestive heart failure (CMS/HCC) Hypertensive disorder Malignant neoplasm of upper-outer quadrant of left breast in female, estrogen receptor positive (CMS/HCC) Mitral valve regurgitation Other specified menopausal and perimenopausal disorders Paroxysmal atrial fibrillation (CMS/HCC) Type 2 diabetes mellitus (CMS/HCC) History of intracranial hemorrhage Past Medical History: Diagnosis Date Atrial fibrillation (CMS/HCC) Heart valve disease History of intracranial hemorrhage Hypertension Family History Problem Relation Name Age of Onset Coronary artery disease Mother Coronary artery disease Father Coronary artery disease Sister Coronary artery disease Brother Social History Tobacco Use Smoking status: Never Smokeless tobacco: Never Substance Use Topics Alcohol use: Not Currently Allergies Allergen Reactions Gzefhda-Pnp-Sym Reductase Inhibitors Other Other reaction(s): AOF ROS Review of Systems Constitutional: Positive for malaise/fatigue and weight loss. Musculoskeletal: Positive for muscle weakness. All other systems reviewed and are negative. OBJECTIVE Visit Vitals BP 151/85 (BP Location: Right arm, Patient Position: Sitting) Pulse 66 Ht 1.651 m (5' 5 ) Wt 58.1 kg (128 lb) SpO2 98% BMI 21.30 kg/m??? Smoking Status Never BSA 1.63 m??? Medications: Current Outpatient Medications: anastrozole (Arimidex) 1 mg chemo tablet, anastrozole 1 mg tablet TAKE 1 TABL (more content not included)... [facility] 06-29-2022 Miscellaneous Notes Patient has an appt on 07/09/22. Would you like labs, if so place orders. Arabella Cotter MA documented in this encounter [facility] 05-19-2022 History of Presen t illness Narrative Images from the original note were not included. EMERGENCY TRIAGE, TREAT AND TRANSPORT (ET3) DOCUMENTATION OF TELEHEALTH VISIT Date / Time: 05/19/2022 / 1130 Name: Andrew Barros : 1945 SSN: (Not on file) EMS Agency: [facility] [x] Verbal consent obtained [] Implied consent - patient with potential emergency medical condition requiring assessment of capacity to refuse treatment and/or transport VITAL SIGNS: see flowsheet documentation Reason for Telehealth Visit: Chief Complaint Patient presents with Shortness of breath History of Present Ilness: 76 year old female, hx HTN, DM, afib Woke at 0730 and c/o sob, lasted 3 hours No chest pain/pressure No fever, cough No new leg swelling (+) hx similar SOB in past SOB gone on EMS arrival Pt denies diaphoresis, lightheadedness. Sob was unchanged the whole time, not worsened by walking Denies palpitations (+) emesis x 1 during event No headache Additional pertinent PMHx, SocHx, FamHx: See HPI Review of Systems: Denies the following: see HPI Exam: General: Awake, no distress, stands and ambulates without difficulty ENT: normocephalic, atraumatic Pulmonary: No respiratory distress, lungs reported clear by EMS, pt has no difficulty speaking or any noticeable resp distress/difficulty. No cough. Cardiovascular: Well perfused Neurologic: Oriented to person, place, time and events. Moving all extremities equally. Psychiatric: Appropriate. Good insight and judgement. Medical Decision Makin76 year old female with transient dyspnea of unclear etiology. Now resolved. Pt st she gets this intermittently. This may be due to transient afib. Ems able to do an ecg but unable to send it to me. Ems reports ecg appears NSR and computer did not read stemi. Pt does not wish to go to ED now and appears stable to stay home and f/u. Advised to call back if symptoms return/worsen or other concerns. Disposition Supported by Telehealth Assessment: ET3 transport decisions: Refused transport EMS Disposition Reported: Same ET3 Encounter Completed by: Kristian Mcwilliams MD documented in this encounter [facility] 01-08-2022 History of Presen t illness Narrative Images from the original note were not included. Radiation Oncology - Follow Up Note PATIENT NAME: Andrew Barros PATIENT DIAGNOSIS/PATIENT IDENTIFICATION: Ms. Barros is a 76-year old female with Infiltrating ductal carcinoma of the Left breast, UOQ, pathologic stage IIA (pT1c pN1a M0), ER-positive, NC-positive and Her2/lauren not amplified, s/p partial mastectomy with sentinel lymph node biopsy; status post radiation therapy to the left breast and regional lymph nodes completing on 09/10/2018 under the care of Dr. Burks (6120 cGy in 34 fractions). She is maintained on Arimidex under the care of Dr. Lenz. INTERVAL HISTORY/ROS: Ms. Barros returns to clinic today for routine follow-up approximately three and a half years after the completion of her radiation treatments and two years since her last visit on 03/10/2020. In the interim, she had her annual surveillance mammogram on 01/05/2022 which showed stable posttreatment changes without evidence of recurrence (BI-RADS 3). Today she denies any pain/discomfort, skin irritation/breakdown, any new lumps or bumps in the left breast and reports intact range of motion. She had a breast exam earlier today with Dr. Lenz which was without concern. She does note some fatigue with fair appetite and hydration. She was recently diagnosed with a brain bleed and is following up with neurology. She also notes some issues with gait/balance but otherwise denies any recent fevers, chills, headaches, difficulty with speech/swallowing, shortness of breath, chest pain/palpitations, abdominal pain, nausea, vomiting, change in bowel/urinary habits, etc. The remainder of the review of systems was performed and was otherwise noncontributory. ALLERGIES ALLERGIES Allergen Reactions Lgrpemn-Nei-Cwf Red* Unknown Other reaction(s): AOF MEDICATIONS: Current Outpatient Medications: amLODIPine (NORVASC) 2.5 mg tablet metFORMIN (GLUCOPHAGE) 500 mg tablet anastrozole (ARIMIDEX) 1 mg tablet bimatoprost (LUMIGAN) 0.01 % drop ophthalmic drops propafenone SR (RYTHMOL SR) 325 mg 12 hr capsule potassium chloride (K-TAB) 10 mEq tablet omeprazole (PRILOSEC) 40 mg capsule calcium-cholecalciferol, D3, (OSCAL+D 250) 250-125 mg-unit per tablet rivaroxaban (XARELTO) 20 mg tablet ezetimibe (ZETIA) 10 mg tablet carvedilol (COREG) 25 mg tablet Multivitamin capsule furosemide (LASIX) 40 mg tablet PHYSICAL EXAM: GENERAL: elderly woman sitting in chair in no acute distress. KPS: 80 HEENT: NC/AT, anicteric sclera HEART: S1S2 LUNGS: non-labored breathing ABDOMEN: soft MUSCULOSKELETAL: no peripheral edema, moves all extremities. NEURO: no focal deficit; A&O X3. RADIOLOGIC DATA: Bilateral Mammogram (01/05/2022) ASSESSMENT AND PLAN: Ms. Barros is a 76-year old female with Infiltrating ductal carcinoma of the Left breast, UOQ, pathologic stage IIA (pT1c pN1a M0), ER-positive, NC-positive and Her2/lauren not amplified, s/p partial mastectomy with sentinel lymph node biopsy; status post radiation therapy to the left breast and regional lymph nodes completing on 09/10/2018 under the care of Dr. Burks (6120 cGy in 34 fractions). She is maintained on Arimidex under the care of Dr. Lenz. Ms. Barros is doing well clinically approximately 3 and half years out from the completion of her radiation treatments to the left breast and regional lymph nodes with no significant residual sequela. Her breast exam earlier today with Dr. Lenz as well as her mammogram from last week showing no clinical or radiographic evidence of disease. She will continue her follow-up and surveillance with Dr. Lenz and will have an open follow-up with us here in the radiation medicine clinic. The patient is aware to contact the clinic should any questions or concerns arise. Thank you for allowing us to participate in the care of this patient. Signed by: Herbert Pelaez MD I spent a total of 20 minutes on the date of the service which included preparing to see the patient, [id number] patient care and counseling and educating the patient/family/caregiver. This document has been created with the use of voice recognition technology. It may contain inaccuracies, misspellings, inaccurate syntax or inappropriate word context that are a result of the inadequacies/shortcomings of said technology/software. documented in this encounter [facility] 01-08-2022 History of Presen t illness Narrative Images from the original note were not included. NAME: Andrew Barros [facility] NO.: [id number] DATE OF SERVICE: January 08, 2022 Some elements in this clinic note that are critical to medical decision making have been carefully reviewed and included from a prior clinic note dated: July 21, 2021 Referring Provider: Eduardo Sharpe Additional Clinicians involved in Andrew Barros's care: CC: History of Breast Cancer ASSESSMENT: 76 year old woman with Left breast upper outer quadrant, invasive ductal carcinoma, ER postive, NC positive, 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 Diagnosed 2017. Oncotype testing recurrence score 12 Stopped anticoagulation due to intracranial hemorrhage in 10/2021. Mildly elevated calcium - will recheck in future. PLAN: 1. Continue Arimidex. 2. Continue Vit D only - stop calcium 3. Follow up in 6 months with labs. TREATMENT TO DATE: 3. Started arimidex September 26, 2018 2. Completed radiation September 10, 2018 1. Left breast lumpectomy and SNB, June 05, 2018. HPI: Updated Visit, January 08, 2022: Mammogram results pending from 01/05/2022 11/14/2021 had intracranial hemorrhage with intracerebral hematoma in the right tempora lobe due to HTN and warfarin. Anticoagulation was for A-fib. Had been On Xarelto up until 3 months prior to hemorrhage but needed something cheaper. Updated Visit, July 21, 2021: Andrew Barros returns for scheduled follow-up. Since her last visit there has been no significant medical changes. She has been on Arimidex for 3 years and is tolerating it well. She does experience hot flashes. She denies any muscle and joint aches. She remains on calcium, vitamin D plus a multivitamin. She offers no new complaints today. Overall, she is doing well with no new issues, problems or concerns. 04/24/2021 DEXA scan Impression: World Health Organization classification: Normal low fracture risk. Updated Visit, April 20, 2021: Andrew is a 75 year old female who presents for her annual visit and to transition her care from her prior physician Dr. Herman. She tells me that her from COVID-19 in 08/2020 age 80. She also had COVID and was hospitalized but (obviously) recovered. The patient remains on Arimidex and is tolerating it well. She has no symptoms or concerns for recurrence. At this time she will continue with that as planned but will also need bone density and to start on Vit-D + Calcium. Mammograms at [facility] on 01/04/2021 Bi-Rads 2 benign. REVIEW OF SYSTEMS Per HPI and otherwise negative by full review of organ systems. ECOG PERFORMANCE STATUS: 0 PHYSICAL EXAMINATION: Vitals: BP 150/69 Pulse 68 Temp (Src) 97.4 (Temporal) Resp 16 Ht 5' 4.016 (1.63m) Wt 141 lb 9.6 oz (64.2kg) SpO2 97% BMI 24.29 kg/(m^2). Body surface area is 1.7 meters squared. General:This is an age-appropriate patient in no acute distress. Head: Atraumatic, symmetric with no lesions visible. Eyes: Pupils equally round and reactive to light, extraocular muscles intact. Neck: Supple Mouth: Mucous membranes are moist, no thrush is noted. Lungs: Clear to auscultation bilaterally with no wheezes crackles or rales. Cardiovascular: Regular rate and rhythm with no murmurs or gallops. No Afib Peripheral pulses: Normal. Gastrointestinal: Soft, nontender, normoactive bowel sounds, with no appreciable hepatosplenomegaly. Musculoskeletal: No appreciable bony abnormalities or tenderness. Extremities: Lower extremities without edema. Neurologic: Nonfocal to gross visualization. Alert and oriented 3. Psychiatric: No evidence of inappropriate anxiety or depression. Skin: No overt rashes wounds or petechiae. Lymph node exam: No appreciable lymphadenopathy in cervical supraclavicular or axillary lymph node chains. Chaperoned breast exam normal right female breast. Left breast with upper outer quadrant scar healed and with evidence of recurring mass. ALLERGIES: ALLERGIES Allergen Reactions Tbbgpkk-Qst-Kyl Red* Unknown Other reaction(s): AOF MEDICATIONS: amLODIPine (NORVASC) 2.5 mg tablet Take 2.5 mg by mouth once daily. metFORMIN (GLUCOPHAGE) 500 mg tablet Take 500 mg by mouth twice daily. anastrozole (ARIMIDEX) 1 mg tablet TAKE 1 TABLET BY MOUTH EVERY DAY bimatoprost (LUMIGAN) 0.01 % drop ophthalmic drops 1 Drop as directed. propafenone SR (RYTHMOL SR) 325 mg 12 hr capsule Take 325 mg by mouth q 12 HR. potassium chloride (K-TAB) 10 mEq tablet Potassium Chloride Active 10 MEQ PO Daily September 22, 2020 12:10pm See your primary care provider or cardiology for refills omeprazole (PRILOSEC) 40 mg capsule Take 40 mg by mouth once daily. calcium-cholecalciferol, D3, (OSCAL+D 250) 250-125 mg-unit per tablet Take 1 tablet by mouth twice daily. ezetimibe (ZETIA) 10 mg tablet Take 10 mg by mouth once daily. carvedilol (COREG) 25 mg tablet Take 25 mg by mouth as directed. Takes 1 1/2 tablet 2x a day Multivitamin capsule Take 1 capsule by mouth once daily. furosemide (LASIX) 40 mg tablet Take 40 mg by mouth once daily. rivaroxaban (XARELTO) 20 mg tablet Take 20 mg by mouth daily with dinner. LABORATORY VALUES: Hemoglobin (g/dL) Date Value 01/08/2022 13.2 07/21/2021 13.2 Hematocrit (%) Date Value 01/08/2022 41.1 07/21/2021 40.6 WBC (k/uL) Date Value 01/08/2022 10.27 07/21/2021 9.17 Platelet Count (k/uL) Date Value 01/08/2022 307 07/21/2021 254 DIAGNOSIS: (C50.412, Z17.0) Malignant neoplasm of upper-outer quadrant of left breast in female, estrogen receptor positive (HCC) (primary encounter diagnosis) (Z13.820) Encounter for screening for osteoporosis PAST MEDICAL HISTORY Diagnosis Date Atrial fibrillation (HCC) Brain bleed (HCC) Cancer (HCC) 05/2018 breast cancer Diabetes (HCC) Hyperlipidemia Hypertension Other specified menopausal and perimenopausal disorders 04/20/2021 PAST SURGICAL HISTORY Procedure Laterality Date CATARACT EXTRACTION HX Social History Tobacco Use Smoking status: Never Smoker Smokeless tobacco: Never Used Substance Use Topics Alcohol use: Yes Comment: very rare Drug use: Not on file No family history on file. I spent a total of 30 minutes on the date of the service which included preparing to see the patient, [id number]-[id number] patient care, completing clinical documentation, obtaining and/or reviewing separately obtained history, performing a medically appropriate examination, communicating results to the patient/family/caregiver and care coordination (not separately reported). Sandeep Lenz MD, CPE Services Provided at: [place], [place] & [place], [place] CC: Eduardo Sharpe MD [address] [facility] [id number] documented in this encounter [facility] 01-08-2022 Nurse Note Patient has had brain bleeds since being here last she is seeing Dr. Hernandez , she has been in [facility] [place] an [place] due to the bleeds. 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 Overall she feels good with no problem. I think it is okay for her to travel. I will follow up a new CT of the head in 6 weeks. I independently reviewed the present CT and compared to the previous. [facility] Other 12-25-2020 NoteMicrobiology PROCEDURE: Blood Culture Charcoal [R1] SOURCE: Blood BODY SITE: Arm L COLLECTED DATE/TIME: 09/09/2020 13:00 EST RECEIVED DATE/TIME: 09/09/2020 14:05 EST START DATE/TIME: 09/09/2020 14:05 EST FREE TEXT SOURCE: Koko Gallardo DO, DO, John FINAL REPORTS Final Report [] Verified Date/Time: 09/16/2020 16:03 EST No growth at 7 days. Performing Locations R1: This test [facility] performed at: [facility], [address] [place] [address], [address] [place] [address], [facility]iv[facility] HospitalComment on above:Performed By: #### [id number] ####[facility] [address] [place] [address] [id number] NoteMicrobiology PROCEDURE: Blood Culture Charcoal [R1] SOURCE: Blood BODY SITE: Hand L COLLECTED DATE/TIME: 09/09/2020 13:49 EST RECEIVED DATE/TIME: 09/09/2020 14:06 EST START DATE/TIME: 09/09/2020 14:06 EST FREE TEXT SOURCE: Koko Pettit DO, DO, John FINAL REPORTS Final Report [] Verified Date/Time: 09/16/2020 16:01 EST No growth at 7 days. Performing Locations R1: This test was performed at: [facility], [address] [place] [address], [address] [place] [address], NnmesqA[facility] HospitalComment on above:Performed By: #### [id number] #### [facility] [address] [place] [address] [id number] note* Diagnosis Onset Date Resolution Status Atrial fibrillation acute Diabetes acute Hypertension acute Intracerebral hemorrhage acu te Nontraumatic intracerebral hemorrhage acute [facility] Work Phone: Evaluation note* Diagnosis Malignant neoplasm of upper-outer quadrant of left breast in female, estrogen receptor positive (HCC)- Primary Encounter for screening for osteoporosis Special screening for osteoporosis Hypercalcemia [facility] Diagnosis Malignant neoplasm of upper-outer quadrant of left breast in female, estrogen receptor positive (HCC)- Primary documented in this encounter [facility] note* Diagnosis Dyspnea, unspecified type- Primary documented in this encounter [facility] note* Diagnosis Malignant neoplasm of upper-outer quadrant of left breast in female, estrogen receptor positive (HCC)- Primary Encounter for screening for osteoporosis Special screening for osteoporosis Hypercalcemia Hypercalcemia documented in this encounter [facility] note* Diagnosis Malignant neoplasm of upper-outer quadrant of left breast in female, estrogen receptor positive (HCC) documented in this encounter [facility] note* Diagnosis Hypercalcemia- Primary Other specified menopausal and perimenopausal disorders Malignant neoplasm of upper-outer quadrant of left breast in female, estrogen receptor positive (HCC) documented in this encounter [facility] note* Diagnosis Malignant neoplasm of upper-outer quadrant of left breast in female, estrogen receptor positive (HCC)- Primary Hypercalcemia Malignant neoplasm of breast in female, estrogen receptor positive, unspecified laterality, unspecified site of breast (HCC) Stage 3 chronic kidney disease, unspecified whether stage 3a or 3b CKD (HCC) documented in this encounter [facility] note* Diagnosis Malignant neoplasm of upper-outer quadrant of left breast in female, estrogen receptor positive (HCC) documented in this encounter [facility] note* Diagnosis Hypercalcemia- Primary Malignant neoplasm of upper-outer quadrant of left breast in female, estrogen receptor positive (HCC) Stage 3 chronic kidney disease, unspecified whether stage 3a or 3b CKD (HCC) documented in this encounter [facility] noteNo InformationNort YPlan Other History general Narrative - Reported* Type Description Date Medical History hypertension Medical History heart disease Medical History Esophageal reflux Medical History diabetes mallitus Medical History cancer Surgical History breast cancer Hospitalization History See Above [facility] Other reason for referral (narrative)* Diagnostic Procedure Only (Routine) - Pending Review Specialty Diagnoses / Procedures Referred By Contac t Referred To Contact MOLECULAR & FUNCTIONAL IMAGING Diagnoses Malignant neoplasm of breast in female, estrogen receptor positive, unspecified laterality, unspecified site of breast (HCC) Procedures NM BONE WHOLE BODY BONE &/JOINT IMAGING WHOLE BODY Sandeep Lenz MD [address] [place] [address] [address] [place] [address] Molecular & Functional Imaging [address] [place] [address] Referral ID Status Reason Start Date Expiration Date Visits Requested Visits Authorized [id number] Pending Review Auto-Generat ed Referral 04/29/2023 05/28/2024 1 1 [facility] Summary Purpose Family History No Family History Records Found Relationship Condition Age at Onset Recorded Date/T sampson Not Specified Type 2 diabetes mellitus Unknown father Myocardial infarction Unknown Advance Directives No Advanced Directives Records Found Advance Directive Response Recorded Date/ Time Advance Directives No August 1:25am Chief Complaint and Reason for Visit Chief Complaint Subarachnoid Hemorrh age s06.5x9a i61.0 Reason for Visit Atrial fibrillation Diabetes Hypertension Intracerebral hemorrhage Nontraumatic intracerebral hemorrhage Medications Administered Section Inactive Administered Medications - up to 3 most recent administrations Medication Order MAR Action Action Date Dose Rate Site acetaminophen 650 mg tab(s) (TYLENOL) 650 mg, ORAL, ONCE, 1 dose, On Sat04/30/23 at 1500, Give 30 minutes before infusion. No more than 4000 mg of acetaminophen should be given per day (FROM ALL SOURCES), If ordered PRN for pain, patient/guardian may elect to receive this medication for higher pain levels INSTEAD of the opioid, if preferred: N/A Given 04/30/2023 2:46 PM EDT 650 mg zoledronic hm-yixavumu-0.9NaCl 4 mg iv piggyback 100 mL (ZOMETA) 4 mg, INTRAVENOUS, Administer over 15 Minutes, ONCE, 1 dose, On Sat04/30/23 at 1500, Hazardous Potential Reproductive Risk Drug: Use appropriate PPE. New Bag/Syringe/Bottle 04/30/2023 3:10 PM EDT 4 mg Reason for Referral Specialty Diagnoses / Procedures Referred By Compa hampton Referred To Contact Nephrology Diagnoses Hypercalcemia Stage 3 chronic kidney disease, unspecified whether stage 3a or 3b CKD (HCC) Procedures CONSULT TO KIDNEY MEDICINE OFFICE/OUTPATIENT NEW HIGH MDM 60-74 MINUTES Sandeep Lenz MD [address] [place] [address] [address] [place] [address] Referral ID Status Reason Start Date Expiration Date Visits Requested Visits Authorized [id number] Authorized PCP Requested Referral 05/20/2023 05/19/2024 1 1 Additional Source Comments INFORMATION SOURCE (unrecogn ized section and content) DATE CREATED AUTHOR 01/18/2021 Guilherme Siddiqi [facility] DATE CREATED AUTHOR AUTHOR'S ORGANIZ ATION 01/10/2022 [facility] DATE CREATED AUTHOR AUTHOR'S ORGANIZ ATION 05/15/2022 [facility] DATE CREATED AUTHOR AUTHOR'S ORGANIZ ATION 05/22/2022 [facility] DATE CREATED AUTHOR AUTHOR'S ORGANIZ ATION 09/24/2022 [facility] DATE CREATED AUTHOR AUTHOR'S ORGANIZ ATION 04/01/2023 [facility] DATE CREATED AUTHOR AUTHOR'S ORGANIZ ATION 08/20/2023 [facility] Care Teams (unrecognized sec tion and content) Team Status: Inactive Member Role Status Dates Eduardo Sharpe MD Primary Care Provider Active Shaka Echavarria MD Admit Provider, Attending Provider A ctive Brayden Hernandez MD Other Provider Active Team Status: Inactive Member Role Status Dates Eduardo Sharpe MD Primary Care Provider Active Brayden Hernandez MD Attending Provider Active Team Status: Active Member Role Status Dates Eduardo Sharpe MD Primary Care Provider Active 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 Relationship Specialty Start Date End Date Eduardo Sharpe MD [address] [id number] PCP - General Family Practice 05/30/18 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 Relationship Specialty Start Date End Date Eduardo Sharpe MD [address] [id number] PCP - General Family Practice 05/30/18 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 Relationship Specialty Start Date End Date Eduardo Sharpe MD [address] [id number] PCP - General Family Medicine 05/30/18 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 Relationship Specialty Start Date End Date Eduardo Sharpe MD [address] [id number] PCP - General Family Medicine 05/30/18 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 Relationship Specialty Start Date End Date Eduardo Sharpe MD PCP - General Family Medicine 05/30/18 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 Relationship Specialty Start Date End Date Eduardo Sharpe MD PCP - General Family Medicine 05/30/18 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 Relationship Specialty Start Date End Date Eduardo Sharpe MD PCP - General Family Medicine 05/30/18 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 Relationship Specialty Start Date End Date Eduardo Sharpe MD PCP - General Family Medicine 05/30/18 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 Relationship Specialty Start Date End Date Eduardo Sharpe MD PCP - General Family Medicine 05/30/18 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 Relationship Specialty Start Date End Date Eduardo Sharpe MD PCP - General Family Medicine 05/30/18 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 Relationship Specialty Start Date End Date Eduardo Sharpe MD PCP - General Family Medicine 05/30/18 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 Relationship Specialty Start Date End Date Eduardo Sharpe MD PCP - General Family Medicine 05/30/18 Source Comments (unrecognize d section and content) In the event this informatio n is protected by the Federal Confidentiality of Alcohol and Drug Abuse Patient Records regulations: The Federal rules restrict any use of the information to criminally investigate or prosecute any alcohol or drug abuse patient.[facility] Center[facility] the event this information is protected by the Federal Confidentiality of Alcohol and Drug Abuse Patient Records regulations: The Federal rules restrict any use of the information to criminally investigate or prosecute any alcohol or drug abuse patient.[facility] Center[facility] the event this information is protected by the Federal Confidentiality of Alcohol and Drug Abuse Patient Records regulations: The Federal rules restrict any use of the information to criminally investigate or prosecute any alcohol or drug abuse patient.[facility] Center[facility] the event this information is protected by the Federal Confidentiality of Alcohol and Drug Abuse Patient Records regulations: The Federal rules restrict any use of the information to criminally investigate or prosecute any alcohol or drug abuse patient.[facility] CenterIn the event this information is protected by the Federal Confidentiality of Alcohol and Drug Abuse Patient Records regulations: The Federal rules restrict any use of the information to criminally investigate or prosecute any alcohol or drug abuse patient.[facility] CenterIn the event this information is protected by the Federal Confidentiality of Alcohol and Drug Abuse Patient Records regulations: The Federal rules restrict any use of the information to criminally investigate or prosecute any alcohol or drug abuse patient.[facility] CenterIn the event this information is protected by the Federal Confidentiality of Alcohol and Drug Abuse Patient Records regulations: The Federal rules restrict any use of the information to criminally investigate or prosecute any alcohol or drug abuse patient.[facility] CenterIn the event this information is protected by the Federal Confidentiality of Alcohol and Drug Abuse Patient Records regulations: The Federal rules restrict any use of the information to criminally investigate or prosecute any alcohol or drug abuse patient.[facility] CenterIn the event this information is protected by the Federal Confidentiality of Alcohol and Drug Abuse Patient Records regulations: The Federal rules restrict any use of the information to criminally investigate or prosecute any alcohol or drug abuse patient.[facility] CenterIn the event this information is protected by the Federal Confidentiality of Alcohol and Drug Abuse Patient Records regulations: The Federal rules restrict any use of the information to criminally investigate or prosecute any alcohol or drug abuse patient.[facility] CenterIn the event this information is protected by the Federal Confidentiality of Alcohol and Drug Abuse Patient Records regulations: The Federal rules restrict any use of the information to criminally investigate or prosecute any alcohol or drug abuse patient.[facility] CenterIn the event this information is protected by the Federal Confidentiality of Alcohol and Drug Abuse Patient Records regulations: The Federal rules restrict any use of the information to criminally investigate or prosecute any alcohol or drug abuse patient.[facility] Reason for Visit (unrecogniz ed section and content) Reason Comments Breast Cancer 5 month follow up Reason Comments Breast Cancer Reason Comments Shortness of breath Reason Comments Lab Orders Reason Comments Refill Request Specialty Diagnoses / Procedures Referred By Compa t Referred To Contact Diagnoses Malignant neoplasm of upper-outer quadrant of left breast in female, estrogen receptor positive (HCC) Other specified menopausal and perimenopausal disorders Hypercalcemia Sandeep Lenz MD [address] [place] [address] [address] [place] [address] [employer] [address] [place] [address] Referral ID Status Reason Start Date Expiration Date V isits Requested Visits Authorized [id number] Authorized 04/29/2023 07/28/2023 99 99 Reason Comments Breast Cancer 1 year follow up Reason Comments Results Reason Comments Breast Cancer Followup Reason Comments Referral Information Nephrology FOR RECORDS PERTAINING TO PATIENTS WHO ARE OR HAVE BEEN ENROLLED IN A CHEMICAL DEPENDENCY/SUBSTANCEABUSE PROGRAM, SOME INFORMATION MAY BE OMITTED. This clinical summary was aggregated from multiple sources. Caution should be exercised in using it in the provision of clinical care. This summary normalizes information from multiple sources, and as a consequence, information in this document may materially change the coding, format and clinical context of patient data. In addition, data may be omitted in some cases. CLINICAL DECISIONS SHOULD BE BASED ON THE PRIMARY CLINICAL RECORDS. [facility] [employer] [facility]. provides no warranty or guarantee of the accuracy or completeness of information in this document.
--- NOTE | 2023-09-23 19:45 | ECG_ITS ---
[facility] Test Date: 2023-09-23 Pat Name: ANDREW JAMISON Department: Room: - Gender: Female Progress Man: : 1945 Requested By: EDUARDO SHARPE Order Number: [id number] Reading MD: EDUARDO SHARPE Measurements Intervals Kress Rate: 71 P: 63 MN: 264 QRS: -54 QRSD: 136 T: 107 QT: 398 QTc: 421 Interpretive Statements 1100 Sinus rhythm 2231 First degree AV block 2330 Nonspecific intraventricular conduction block 3414 Cannot rule out septal myocardial infarction, age undetermined 5234 Left ventricular hypertrophy with repolarization abnormality 9150 abnormal ECG No previous ECG available for comparison Electronically Signed On 09-26-2023 7:15:15 EST by EDUARDO SHARPE
--- NOTE | 2023-09-23 19:45 | XR_ITS ---
The [address] [address] Patient Name: ANDREW JAMISON MRN: [id number] date: 1945 Sex: F Assigned Patient Location: ER Current Patient Location: ER Accession/Order Number: [id number] Exam Date: 09/23/2023 19:55 Report Date: 09/23/2023 20:22 At the request of: PANCHO THIBODEAUX Procedure: XR chest 1V EXAM: XR chest 1V HISTORY: . shortness of breath . COMPARISON: 08/22/2022 TECHNIQUE: Single view of the chest FINDINGS: Heart and vascularity are unremarkable. Lung is unremarkable. There is slight increased density in the left lung base. No consolidation is noted. Left upper lobe is unremarkable. Surgical clips are noted along the left lateral chest wall. XR/XR chest 1V IMPRESSION: 1. Atelectasis versus early infiltrate in the left retrocardiac region. No consolidation. 2. The remainder of lung estrada are unremarkable. Electronically authenticated by: RE MENDOZA Date: 09/23/2023 20:22
--- NOTE | 2023-09-23 19:47 | ED_ITS ---
HPI - General Adult General Chief complaint: Shortness of Breath/Dyspnea Stated complaint: High Blood Pressure Shortness of Breath Time Seen by Provider: 09/23/23 19:22 Source: patient and family Mode of arrival: Wheelchair Limitations: no limitations History of Present Illness HPI narrative: Patient developed shortness of breath with exertion over the last few days and today had abnormal lung sounds per the family member who has been caring for her recently. PMHx includes CHF. Her PCP is Dr Mcnamara. Patient has some trouble with HPI and ROS and the family helps answer questions. Patient complains of some upper airway fluid production, dry cough. No sore throat or ear pain. BP readings elevated today. No missed doses of meds. She tested negative for Covid about a week into symptom onset. Related Data Home Medications Medication Instructions Recorded Confirmed amlodipine 5 mg tablet 5 mg PO BID 09/23/23 09/23/23 anastrozole 1 mg tablet 1 mg PO DAILY 09/23/23 09/23/23 aspirin 81 mg tablet,delayed 81 mg PO DAILY 09/23/23 09/23/23 release (Adult Aspirin Regimen) carvedilol 25 mg tablet 25 mg PO Q12H 09/23/23 09/23/23 doxazosin 4 mg tablet 4 mg PO DAILY 09/23/23 09/23/23 ezetimibe 10 mg tablet 10 mg PO DAILY 09/23/23 09/23/23 ferrous sulfate 325 mg (65 mg 325 mg PO BID 09/23/23 09/23/23 iron) tablet furosemide 40 mg tablet 40 mg PO DAILY 09/23/23 09/23/23 metformin 500 mg tablet 500 mg PO BID 09/23/23 09/23/23 omeprazole 40 mg capsule,delayed 40 mg PO DAILY 09/23/23 09/23/23 release propafenone 325 mg 325 mg PO Q12H 09/23/23 09/23/23 capsule,extended release 12 hr Previous Rx's Medication Instructions Recorded amoxicillin 875 mg-potassium 1 tab PO Q12H #14 tabs 03/04/23 clavulanate 125 mg tablet azithromycin 250 mg tablet 250 mg PO DAILY 4 days #4 tabs 09/23/23 cephalexin 500 mg capsule 500 mg PO TID 7 days #21 caps 09/23/23 Allergies Allergy/AdvReac Type Severity Reaction Status Date / Time No Known Drug Allergies Allergy Verified 09/23/23 19:26 [facility] Social History Smoking status: Never smoker Exam Narrative Exam Narrative: Nurses notes and vital signs reviewed and patient is not hypoxic. 93% RA POx afebrile General: Well-appearing and in no apparent distress. Skin: Warm, dry, no pallor noted. Eye: Pupils are equal, round and EOMI. No scleral icterus. Ears, Nose, Mouth, and Throat: TM are clear, mild posterior oropharynx erythema and nasal mucosal hypertrophy, uvula is mid-line, Oral mucosa is moist Cardiovascular: Regular Rate and Rhythm without murmur, gallop or rub. Respiratory: No accessory muscle use or respiratory distress. Lungs are clear to auscultation, no wheezing, rales or rhonchi Musculoskeletal: normal ROM, no calf or popliteal tenderness, no lower extremity edema/swelling GI: Abdomen is soft, non-distended. Normal bowel sounds. No tenderness to p alpation. No rebound, guarding, or rigidity noted. Neurological: A&O x4. No cranial nerve dysfunction observed. No truncal ataxia. Moves all extremities. Sensation intact. Psychiatric: Cooperative and interactive. Normal mood and affect. Constitutional Vital Signs, click to edit/add: Last Vital Signs Temp 99.2 F 09/23/23 19:23 Pulse 77 09/23/23 20:30 Resp 21 09/23/23 20:30 BP 165/77 H 09/23/23 20:30 Pulse Ox 95 09/23/23 20:10 O2 Del Method Room Air 09/23/23 19:23 Course Vital Signs Vital signs: Vital Signs Temperature 99.2 F 09/23/23 19:23 Pulse Rate 74 09/23/23 19:23 Respiratory Rate 18 09/23/23 19:23 Blood Pressure 163/80 H 09/23/23 19:23 Pulse Oximetry 93 L 09/23/23 19:23 Oxygen Delivery Method Room Air 09/23/23 19:23 Temperature 99.2 F 09/23/23 19:23 Pulse Rate 77 09/23/23 20:30 Respiratory Rate 21 09/23/23 20:30 Blood Pressure 165/77 H 09/23/23 20:30 Pulse Oximetry 95 09/23/23 20:10 Oxygen Delivery Method Room Air 09/23/23 19:23 Medical Decision Making MDM Narrative Medical decision making narrative: Patient was placed on telemetry monitor and EKG obtained. Blood drawn and sent for evaluation. Chest x-ray obtained. The patient was swabbed for influenza. CXR = atelectasis vs infiltrate left retrocardiac region per radiologist. WBC 20k. K low at 3.1 She was given IV Rocephin and oral azithromycin. She was also given oral potassium. Her BUN and Cr are at her baseline values. Troponin and BNP are not elevated. Patient's results discussed with family members and the patient. It was decided that the patient would be discharged home with prescriptions for antibiotics - I asked them to bring her abck to the ED if she worsens. Of note, her BP decreased closer to normal values without ED treatment - although Vasotec was ordered to be given, it was held. Lab Data Lab results reviewed: Yes I reviewed the patient's lab results Labs: Lab Results 09/23/23 09/23/23 Range/Units 08:05 19:58 WBC 20.5 H (4.0-11.0) 10^3/uL RBC 3.84 L (4.20-5.40) 10^6/uL Hgb 11.8 L (12.0-16.0) g/dL Hct 35.6 L (36.0-48.0) % MCV 92.7 (81.0-99.0) fL MCH 30.7 (26.7-34.0) pg MCHC 33.1 (29.9-35.2) g/dL RDW 11.9 (11.0-15.0) % Plt Count 285 (150-450) 10^3/uL MPV 10.3 (9.5-13.5) fL Neut % (Auto) 88.1 H (43.0-75.0) % Lymph % (Auto) 4.2 L (20.5-60.0) % [place] % (Auto) 7.0 (1.7-12.0) % Eos % (Auto) 0.2 L (0.9-7.0) % Baso % (Auto) 0.1 L (0.2-2.0) % Neut # (Auto) 18.0 H (1.4-6.5) 10^3/uL Lymph # (Auto) 0.9 L (1.2-3.8) 10^3/uL [place] # (Auto) 1.4 H (0.3-0.8) 10^3/uL Eos # (Auto) 0.0 (0.0-0.7) 10^3/uL Baso # (Auto) 0.0 (0.0-0.1) 10^3/uL Abs Immat Gran (auto) 0.09 H (0.00-0.03) 10^3/uL Imm/Tot Granulo (auto) 0.4 (0.0-0.5) % Sodium 139 (136-145) mmol/L Potassium 3.1 L (3.5-5.1) mmol/L Chloride 99 (98-107) mmol/L Carbon Dioxide 31.4 (21.0-32.0) mmol/L Anion Gap 11.7 BUN 23.0 H (7.0-18.0) mg/dL Creatinine 1.51 H (0.55-1.02) mg/dL Est GFR ( Amer) 40 L (>=60) Est GFR (Non-Af Amer) 33 L (>=60) BUN/Creatinine Ratio 15.2 Glucose 175 H (74-106) mg/dL Calcium 9.7 (8.5-10.1) mg/dL Total Bilirubin 0.5 (0.2-1.0) mg/dL AST 12 L (15-37) U/L ALT 14 (14-59) U/L Alkaline Phosphatase 71 (46-116) U/L Troponin I High Sens 12.5 (4.0-51.3) pg/mL NT-Pro-B Natriuret Pep 1266.0 (<=1800.0) pg/mL Total Protein 7.6 (6.4-8.2) g/dL Albumin 2.8 L (3.4-5.0) g/dL Globulin 4.8 g/dL Albumin/Globulin Ratio 0.6 Influenza Type A Ag Negative Influenza Type B Ag Negative Imaging Data Chest x-ray: Radiologist's impression: Patient Name: ANDREW JAMISON MRN: [id number] date: 1945 Sex: F Assigned Patient Location: ER Current Patient Location: ER Accession/Order Number: [id number] Exam Date: 09/23/2023 19:55 Report Date: 09/23/2023 20:22 At the request of: PANCHO THIBODEAUX Procedure: XR chest 1V EXAM: XR chest 1V HISTORY: . shortness of breath . COMPARISON: 08/22/2022 TECHNIQUE: Single view of the chest FINDINGS: Heart and vascularity are unremarkable. Lung is unremarkable. There is slight increased density in the left lung base. No consolidation is noted. Left upper lobe is unremarkable. Surgical clips are noted along the left lateral chest wall. IMPRESSION: 1. Atelectasis versus early infiltrate in the left retrocardiac region. No consolidation. 2. The remainder of lung estrada are unremarkable. Electronically authenticated by: RE MENDOZA Date: 09/23/2023 20:22 ECG Data Attestation: I personally reviewed and interpreted this ECG as follows: Interpretation: EKG interpretation: Emergency Department physician interpretation. Normal sinus rhythm at 71bpm. First-degree AV block. LVH. No ST segment elevation or depression. Discharge Plan Discharge Chief Complaint: Shortness of Breath/Dyspnea Clinical Impression: Community acquired pneumonia Patient Disposition: Home, Self-Care Time of Disposition Decision: 21:22 Prescriptions / Home Meds: New cephalexin 500 mg capsule 500 mg PO TID 7 Days Qty: 21 0RF azithromycin 250 mg tablet 250 mg PO DAILY 4 Days Qty: 4 0RF Rx Instructions: start on day 2 of therapy No Action amoxicillin-pot clavulanate 875-125 mg tablet 1 tab PO Q12H Qty: 14 0RF carvedilol 25 mg tablet 25 mg PO Q12H furosemide 40 mg tablet 40 mg PO DAILY metformin 500 mg tablet 500 mg PO BID omeprazole 40 mg capsule,delayed release(DR/EC) 40 mg PO DAILY ferrous sulfate 325 mg (65 mg iron) tablet 325 mg PO BID aspirin [Adult Aspirin Regimen] 81 mg tablet,delayed release (DR/EC) 81 mg PO DAILY propafenone 325 mg capsule,extended release 12 hr 325 mg PO Q12H doxazosin 4 mg tablet 4 mg PO DAILY amlodipine 5 mg tablet 5 mg PO BID ezetimibe 10 mg tablet 10 mg PO DAILY anastrozole 1 mg tablet 1 mg PO DAILY Instructions: Community Acquired Pneumonia (ED) Stand Alone Forms: Portal Instructions Referrals: Xavier Mcnamara MD [Primary Care Provider] - 1 week
--- NOTE | 2023-09-23 20:01 | PC.NURSE ---
Per family pt has had URI symptoms x3 days including, headache, congestion and cough. Pt denies SOB. Family manually took pts BP at home with reading of 170/80.
[2023-09-23 20:10] LABS: Basophils Percent Auto 0.1 % (0.2-2.0); Eosinophils Percent Auto 0.2 % (0.9-7.0); Hematocrit 35.6 % (36.0-48.0); Hemoglobin 11.8 g/dL (12.0-16.0); Immature Granulocytes Abs Auto 0.09 10^3/uL (0.00-0.03); Immature Granulocytes Pct Auto 0.4 % (0.0-0.5); Lymphocytes Absolute Auto 0.9 10^3/uL (1.2-3.8); Lymphocytes Percent Auto 4.2 % (20.5-60.0); Mean Corpuscular HGB Conc 33.1 g/dL (29.9-35.2); Mean Corpuscular Hemoglobin 30.7 pg (26.7-34.0); Mean Corpuscular Volume 92.7 fL (81.0-99.0); Mean Platelet Volume 10.3 fL (9.5-13.5); Monocytes Absolute Auto 1.4 10^3/uL (0.3-0.8); Neutrophils Percent Auto 88.1 % (43.0-75.0); Platelet Count 285 10^3/uL (150-450); Red Blood Count 3.84 10^6/uL (4.20-5.40); Red Cell Distribution Width 11.9 % (11.0-15.0); White Blood Count 20.5 10^3/uL (4.0-11.0)
[2023-09-23 20:29] LABS: Alanine Aminotransferase 14 U/L (14-59); Albumin Globulin Ratio 0.6; Albumin Level 2.8 g/dL (3.4-5.0); Alkaline Phosphatase 71 U/L (46-116); Anion Gap 11.7; Aspartate Amino Transferase 12 U/L (15-37); BUN Creatinine Ratio 15.2; Bilirubin Total 0.5 mg/dL (0.2-1.0); Calcium 9.7 mg/dL (8.5-10.1); Carbon Dioxide 31.4 mmol/L (21.0-32.0); Chloride 99 mmol/L (98-107); Estimated GFR (African America 40 (>=60); Estimated GFR (Non-African Ame 33 (>=60); Globulin 4.8 g/dL; Glucose 175 mg/dL (74-106); Potassium 3.1 mmol/L (3.5-5.1); Sodium 139 mmol/L (136-145); Total Protein 7.6 g/dL (6.4-8.2); Troponin I High Sensitivity 12.5 pg/mL (4.0-51.3)
[2023-09-23 20:44] LABS: Influenza Virus A Antigen Negative; Influenza Virus B Antigen Negative; Internal Control Within Normal Limits
[2023-09-23] MEDS: AZITHROMYCIN 250 MG TABLET 500 MG PO (21:18)
[2023-09-23] MEDS: CEFTRIAXONE 1,000 MG in 0.9 % SODIUM CHLORIDE 50 ML 100 MG IV (21:18)
[2023-09-23] MEDS: POTASSIUM CHLORIDE 10 MEQ ER TABLET 40 MEQ PO (21:18)
== END 2023-09-23 21:50 | disposition home or self-care (01) ==
PROVIDERS: Emergency Provider Emergency Medicine; PCP Family Medicine
DX: J18.9 Pneumonia, unspecified organism (principal); E87.6 Hypokalemia; Z79.82 Long term (current) use of aspirin; Z79.84 Long term (current) use of oral hypoglycemic drugs; Z79.899 Other long term (current) drug therapy
CPT/HCPCS: 36415; 71045; 80053; 83880; 84484; 85025; 87804; 93005; 96365; 99285; J0696

== ENCOUNTER 2023-09-29 09:40 | Observation (INO) | payer MEDICARE, OTHER, SELFPAY ==
[2023-09-29] VITALS (13 sets, daily range): BP systolic 126–153; BP diastolic 64–80; PULSE 64–79; RESP 16–20; TEMP 36.2–36.8; O2SAT 92–96; BMI 23.4; BMI 24.5
--- OUTSIDE RECORDS SUMMARY | 2023-09-29 10:01 | XMS_ITS | CCD ---
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 Name Role Phone MD Eduardo Sharpe Primary Care Provider [phone] MD Radha Echavarriaop Admit Provider MD Shaka Echavarria Attending Provider MD Brayden Hernandez Other Provider MD Brayden Hernandez Attending Provider Eduardo Sharpe MD Primary Care Provider [phone] Brayden Hernandez Unavailable EDUARDO SHARPE Primary Care Unavailable EDUARDO SHARPE Referring Unavailable GANESH HALE Admitting Unavailable GANESH HALE Attending Unavailable Unavailable Primary Care Provider Unavailcharles e PROVIDER, UNKNOWN Attending Unavailable PROVIDER, UNKNOWN Admitting Unavailable Eduardo Sharpe MD Primary Care Provider [phone] MIKALA HIGGINS Admitting Unavailable MIKALA HIGGINS Attending Unavailable DR KATLYN MCGREGOR Consulting Unavailable DR EDUARDO SHARPE Primary Care Unavailable MIKALA HIGGINS Consulting Unavailable DR CATINA OCHOA Consulting Unavailable DR EDUARDO SHARPE Admitting Unavailable DR EDUARDO SHARPE Consulting Unavailable DR EDUARDO SHARPE Attending Unavailable RAY MADISON Procedure Practitioner Unavailab DR EDUARDO Urena Primary Care Unavailable DR KATLYN MCGREGOR Consulting Unavailable RYA MADISON Consulting Unavailable MICHAEL FERRELL Consulting Unavailable [...] Unavailable Eduardo Sharpe MD Primary Care Provider [phone] AnithaBala bar Unavailable HOY, EDUARDO M Primary [...] Date of Onset Reaction(s) Facility (1 source) Azxzlol-DLY-BaC Reductase Inhibitor Propensity to adverse reactions 0 [facility] (4 sources) HMG-CoA reductase inhibitor; Translations: [QHMMHNS-PZV-FRI REDUCTASE INHIBITORS] Drug Allergy 8 Unknown [facility] (1 source) black walnut pollen extract Drug Allergy 8 [facility] (10 sources) HMG-CoA reductase inhibitor Drug Allergy 8 Unknown [facility] (2 sources) Simvastatin Drug Allergy [facility] Medications Current Medications Medication Drug Class(es) [...] 8:13pm Start: 04-12-2021 take 1 capsule by [facility] every twelve hours, then take 1 capsule [...] 10, 2020 1:30am November 09, 2021 7:27pm [id number] 200 actuat albuterol 0.09 mg/actuat metered dose [...] (Bisacodyl)) 10 mg Suppository Discontinued 10 MG IN Daily September 10, 2020 1:30am September 19, [...] 20 mg/ml oral solution (1 source) Uncompetitive M-wpzsxc-X-aspartate Receptor Antagonist, Sigma-1 Agonist Start: End: take [...] 2:05am September 10, 2020 2:21am lactobacillus acidophilus [id number] unt / pectin 10 mg oral capsule (1 source) Start: 09-10-2020 End: 09-19-2020 take 1 capsule by mouth four times daily Acidophilus-Pectin , [place] (Acidophilus Probiotic) 100 million cell-10 mg Capsule [...] Comment on above: Take 1 capsule by [facility] once daily. 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] Onset: 09-03-2022 Episodic Other aftercare (1 source) custodial (current) use of aspirin; Translations: [NURSING HOME CURRENT USE OF ASPIRIN] Onset: 09-03-2022 Episodic Other aftercare (1 source) custodial (current) use of anticoagulants; Translations: [NURSING HOME CURRNT USE ANTICOAGULANTS] Onset: 08-25-2022 Episodic [...] Basophils (Bld) [#/Vol] 0.06 10*3/uL Normal <0.11 [facility] Comment on above: Order Comment: Speci men Type: BLOOD SPECIMENOrdering Facility: [facility] Address: [address] [place] [address] Performed By: #### 5 7021-8 ####[facility] LABCLIA [id number] [place] [address] Basophils/100 WBC (Bld) 0.6 % Normal [facility] Comment on above: Order Comment: Speci men Type: BLOOD SPECIMENOrdering Facility: [facility] Address: [address] [place] [address] Performed By: #### 5 7021-8 ####[facility] LABCLIA [id number] [place] [address] Differential cell count method Nom (Bld) Auto Normal [facility] Comment on above: Order Comment: Speci men Type: BLOOD SPECIMENOrdering Facility: [facility] Address: [address] [place] [address] Performed By: #### 5 7021-8 ####[facility] LABCLIA [id number] [place] [address] Eosinophils (Bld) [#/Vol] 0.16 10*3/uL Normal <0.46 [facility] Comment on above: Order Comment: Speci men Type: BLOOD SPECIMENOrdering Facility: [facility] Address: [address] [place] [address] Performed By: #### 5 7021-8 ####[facility] LABCLIA [id number] [place] [address] Eosinophils/100 WBC (Bld) 1.6 % Normal [facility] Comment on above: Order Comment: Speci men Type: BLOOD SPECIMENOrdering Facility: [facility] Address: [address] [place] [address] Performed By: #### 5 7021-8 ####[facility] LABCLIA [id number] [place] [address] Erythrocyte distribution width (RBC) [Ratio] 12.4 % Normal 11.5-15.0 [facility] Comment on above: Order Comment: Speci men Type: BLOOD SPECIMENOrdering Facility: [facility] Address: [address] [place] [address] Performed By: #### 5 7021-8 ####[facility] LABCLIA [id number] [place] [address] Hematocrit (Bld) [Volume fraction] 39.6 % Normal 36.0-46.0 [facility] Comment on above: Order Comment: Speci men Type: BLOOD SPECIMENOrdering Facility: [facility] Address: [address] [place] [address] Performed By: #### 5 7021-8 ####[facility] LABCLIA [id number] [place] [address] Hemoglobin (Bld) [Mass/Vol] 13.0 g/dL Normal 11.5-15.5 [facility] Comment on above: Order Comment: Speci men Type: BLOOD SPECIMENOrdering Facility: [facility] Address: [address] [place] [address] Performed By: #### 5 7021-8 ####[facility] LABIA [id number] [place] [address] Immature granulocytes (Bld) [#/Vol] 0.03 10*3/uL Normal <0.10 [facility] Comment on above: Order Comment: Speci men Type: BLOOD SPECIMENOrdering Facility: [facility] Address: [address] [place] [address] Performed By: #### 5 7021-8 ####[facility] LABIA [id number] [place] [address] Immature granulocytes/100 WBC (Bld) 0.3 % Normal [facility] Comment on above: Order Comment: Speci men Type: BLOOD SPECIMENOrdering Facility: [facility] Address: [address] [place] [address] Performed By: #### 5 7021-8 ####[facility] LABCLIA [id number] [place] [address] Lymphocytes (Bld) [#/Vol] 1.62 10*3/uL Normal 1.00-4.00 [facility] Comment on above: Order Comment: Speci men Type: BLOOD SPECIMENOrdering Facility: [facility] Address: [address] [place] [address] Performed By: #### 5 7021-8 ####[facility] LABCLIA [id number] [place] [address] Lymphocytes/100 WBC (Bld) 16.2 % Normal [facility] Comment on above: Order Comment: Speci men Type: BLOOD SPECIMENOrdering Facility: [facility] Address: [address] [place] [address] Performed By: #### 5 7021-8 ####[facility] LABCLIA [id number] [place] [address] MCH (RBC) [Entitic mass] 30.9 pg Normal 26.0-34.0 [facility] Comment on above: Order Comment: Speci men Type: BLOOD SPECIMENOrdering Facility: [facility] Address: [address] [place] [address] Performed By: #### 5 7021-8 ####[facility] LABCLIA [id number] [place] [address] MCHC (RBC) [Mass/Vol] 32.8 g/dL Normal 30.5-36.0 [facility] Comment on above: Order Comment: Speci men Type: BLOOD SPECIMENOrdering Facility: [facility] Address: [address] [place] [address] Performed By: #### 5 7021-8 ####[facility] LABCLIA [id number] [place] [address] MCV (RBC) [Entitic vol] 94.1 fL Normal 80.0-100.0 [facility] Comment on above: Order Comment: Speci men Type: BLOOD SPECIMENOrdering Facility: [facility] Address: [address] [place] [address] Performed By: #### 5 7021-8 ####[facility] LABCLIA [id number] [place] [address] Monocytes (Bld) [#/Vol] 1.04 10*3/uL High <0.87 [facility] Comment on above: Order Comment: Speci men Type: BLOOD SPECIMENOrdering Facility: [facility] Address: [address] [place] [address] Performed By: #### 5 7021-8 ####[facility] LABCLIA [id number] [place] [address] Monocytes/100 WBC (Bld) 10.4 % Normal [facility] Comment on above: Order Comment: Speci men Type: BLOOD SPECIMENOrdering Facility: [facility] Address: [address] [place] [address] Performed By: #### 5 7021-8 ####[facility] LABCLIA [id number] [place] [address] Neutrophils (Bld) [#/Vol] 7.12 10*3/uL Normal 1.45-7.50 [facility] Comment on above: Order Comment: Speci men Type: BLOOD SPECIMENOrdering Facility: [facility] Address: [address] [place] [address] Performed By: #### 5 7021-8 ####[facility] LABCLIA [id number] [place] [address] Neutrophils/100 WBC (Bld) 70.9 % Normal [facility] Comment on above: Order Comment: Speci men Type: BLOOD SPECIMENOrdering Facility: [facility] Address: [address] [place] [address] Performed By: #### 5 7021-8 ####[facility] LABCLIA [id number] [place] [address] Nucleated RBC (Bld) [#/Vol] 10*3/uL Normal <0.01 [facility] Comment on above: Order Comment: Speci men Type: BLOOD SPECIMENOrdering Facility: [facility] Address: [address] [place] [address] Performed By: #### 5 7021-8 ####[facility] LABCLIA [id number] [place] [address] Nucleated RBC/100 WBC (Bld) [Ratio] 0.0 /100 WBC Normal [facility] Comment on above: Order Comment: Speci men Type: BLOOD SPECIMENOrdering Facility: [facility] Address: [address] [place] [address] Performed By: #### 5 7021-8 ####[facility] LABCLIA [id number] [place] [address] Platelet mean volume (Bld) [Entitic vol] 10.7 fL Normal 9.0-12.7 [facility] Comment on above: Order Comment: Speci men Type: BLOOD SPECIMENOrdering Facility: [facility] Address: [address] [place] [address] Performed By: #### 5 7021-8 ####[facility] LABCLIA [id number] [place] [address] Platelets (Bld) [#/Vol] 252 10*3/uL Normal 150-400 [facility] Comment on above: Order Comment: Speci men Type: BLOOD SPECIMENOrdering Facility: [facility] Address: [address] [place] [address] Performed By: #### 5 7021-8 ####[facility] LABCLIA [id number] [place] [address] RBC (Bld) [#/Vol] 4.21 10*6/uL Normal 3.90-5.20 [facility] Comment on above: Order Comment: Speci men Type: BLOOD SPECIMENOrdering Facility: [facility] Address: [address] [place] [address] Performed By: #### 5 7021-8 ####[facility] LABCLIA [id number] [place] [address] WBC (Bld) [#/Vol] 10.03 10*3/uL Normal 3.70-11.00 [facility] Comment on above: Order Comment: Speci men Type: BLOOD SPECIMENOrdering Facility: [facility] Address: [place] [address] Performed By: #### 5 7021-8 ####[facility] LABCLIA [id number] [place] [address] CNOVSPon 08-19-2023 CNOVSP Visit (SP) Office ([facility]) -- ANDREW BARROS ([id number]) 1945 F Date Time Provider Department 08/19/23 1:00 PM SANDEEP LENZ During your visit today, we recorded the following information about you: Temperature Pulse Respiration Blood pressure 97.7 degrees 67/minute 16/minute 148/65 Weight Height 61.8 kg 1.626 m Sandeep Lenz MD 08/20/2023 7:07 AM Signed [facility] NAME: Andrew Barros CLINIC NO.: [id number] DATE OF SERVICE: August 19, 2023 (Eduardo) [...] outer quadrant, invasive ductal carcinoma, ER postive, IN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 Mammograms at [facility] on 01/04/2021 Bi-Rads 2 benign. REVIEW OF [...] comfortably. N (more content not included)... Normal [facility] Rita 08-19-2023 CNPN Telephone ([facility]) -- ANDREW BARROS ([id number]) 1945 F Date Time Provider Department 08/19/23 CLEMENTE SRIVASTAVA HEMASA During your visit today, we recorded the following information about you: Clemente Srivastava RN 08/19/2023 2:47 PM Signed ----- Message from Sandeep Lenz MD sent at 08/19/2023 2:33 PM EST ----- Calcium janki normal. Kidney function is stable Clemente Srivastava RN 08/19/2023 2:47 PM Signed Pt aware of [employer]'s message. She denies any additional questions, needs or concerns at this time. Clemente Srivastava RN Allergies As of Date: 08/19/2023 Noted Allergy Reaction [id number] REDUCTASE INHIBIT*01/21/2018 16 - Unknown Comments: Other [...] Status:Closed by CLEMENTE SRIVASTAVA on 08/19/23 Normal [facility] Calcium.ionized [Moles/Vol]o n 08-19-2023 Calcium.ionized (Bld) [Mass/Vol] 1.20 mmol/L Normal 1.08-1.30 [facility] Comment on above: Order Comment: Speci men Type: BLOOD SPECIMENOrdering Facility: [facility] Address: [address] [place] [address] Performed By: #### 1 995-0 ####[facility] LABCLIA [id number] [place] [address] [place] Calcium.ionized adjusted to pH 7.4 (Bld) [Moles/Vol] 1.19 mmol/L Normal 1.08-1.30 [facility] Comment on above: Order Comment: Sosai men Type: BLOOD SPECIMENOrdering Facility: [facility] Address: [address] [place] [address] Performed By: #### 1 995-0 ####[facility] LABCLIA [id number] COLEMANOtoniel [facility] [address] [address] [place] Comprehensive metabolic 2000 panelon 08-19-2023 Albumin [Mass/Vol] 4.4 g/dL Normal 3.9-4.9 [facility] Comment on above: Order Comment: Speci men Type: BLOOD SPECIMENOrdering Facility: [facility] Address: [address] [place] [address] Performed By: #### 2 4323-8 ####[facility] LABCLIA [id number] [place] [address] ALP [Catalytic activity/Vol] 88 U/L Normal 34-123 [facility] Comment on above: Order Comment: Speci men Type: BLOOD SPECIMENOrdering Facility: [facility] Address: [address] [place] [address] Performed By: #### 2 4323-8 ####[facility] LABCLIA [id number] [place] [address] ALT [Catalytic activity/Vol] 8 U/L Normal 7-38 [facility] Comment on above: Order Comment: Speci men Type: BLOOD SPECIMENOrdering Facility: [facility] Address: [address] [place] [address] Performed By: #### 2 4323-8 ####[facility] LABCLIA [id number] [place] [address] Anion gap [Moles/Vol] 11 mmol/L Normal 9-18 [facility] Comment on above: Order Comment: Speci men Type: BLOOD SPECIMENOrdering Facility: [facility] Address: [address] [place] [address] Performed By: #### 2 4323-8 ####[facility] LABCLIA [id number] [place] [address] AST [Catalytic activity/Vol] 13 U/L Normal 13-35 [facility] Comment on above: Order Comment: Speci men Type: BLOOD SPECIMENOrdering Facility: [facility] Address: [address] [place] [address] Performed By: #### 2 4323-8 ####[facility] LABCLIA [id number] [place] [address] Bilirubin [Mass/Vol] 0.3 mg/dL Normal 0.2-1.3 [facility] Comment on above: Order Comment: Speci men Type: BLOOD SPECIMENOrdering Facility: [facility] Address: [address] [place] [address] Performed By: #### 2 4323-8 ####[facility] LABCLIA [id number] [place] [address] Calcium [Mass/Vol] 9.6 mg/dL Normal 8.5-10.2 [facility] Comment on above: Order Comment: Speci men Type: BLOOD SPECIMENOrdering Facility: [facility] Address: [address] [place] [address] Performed By: #### 2 4323-8 ####[facility] LABCLIA [id number] [place] [address] Chloride [Moles/Vol] 98 mmol/L Normal 97-105 [facility] Comment on above: Order Comment: Speci men Type: BLOOD SPECIMENOrdering Facility: [facility] Address: [address] [place] [address] Performed By: #### 2 4323-8 ####[facility] LABCLIA [id number] [place] [address] CO2 [Moles/Vol] 30 mmol/L Normal 22-30 [facility] Comment on above: Order Comment: Speci men Type: BLOOD SPECIMENOrdering Facility: [facility] Address: [address] [place] [address] Performed By: #### 2 4323-8 ####[facility] LABCLIA [id number] [place] [address] Creatinine [Mass/Vol] 1.27 mg/dL High 0.58-0.96 [facility] Comment on above: Order Comment: Anastacio bonilla Type: BLOOD SPECIMENOrdering Facility: [facility] Address: [place] [address] Performed By: #### 2 4323-8 ####[facility] LABCLIA [id number] [place] [address] Creatinine and Glomerular filtration rate.predicted panel (S/P/Bld) 43 mL/min/1.73m??? Low >=60 [facility] Comment on above: Order Comment: Anastacio bonilla Type: BLOOD SPECIMENOrdering Facility: [facility] Address: [address] [place] [address] Result Comment: Sugar mated Glomerular Filtration Rate [...] actual GFR. Performed By: #### 2 4323-8 ####[facility] LABCLIA [id number] [place] [address] Glucose [Mass/Vol] 94 mg/dL Normal 74-99 [facility] Comment on above: Order Comment: Anastacio bonilla Type: BLOOD SPECIMENOrdering Facility: [facility] Address: [place] [address] Result Comment: The [place] Diabetes Association (ADA) provides guidance for cutoff [...] Standards of Medical Care in Diabetes 2016, [place] [employer]. Diabetes Care. 2016.39(Suppl 1). Performed By: #### 2 4323-8 ####[facility] LABCLIA [id number] [place] [address] Potassium [Moles/Vol] 3.7 mmol/L Normal 3.7-5.1 [facility] Comment on above: Order Comment: Speci men Type: BLOOD SPECIMENOrdering Facility: [facility] Address: [address] [place] [address] Performed By: #### 2 4323-8 ####[facility] LABCLIA [id number] [place] [address] Protein [Mass/Vol] 7.3 g/dL Normal 6.3-8.0 [facility] Comment on above: Order Comment: Speci men Type: BLOOD SPECIMENOrdering Facility: [facility] Address: [address] [place] [address] Performed By: #### 2 4323-8 ####[facility] LABCLIA [id number] [place] [address] Sodium [Moles/Vol] 139 mmol/L Normal 136-144 [facility] Comment on above: Order Comment: Speci men Type: BLOOD SPECIMENOrdering Facility: [facility] Address: [address] [place] [address] Performed By: #### 2 4323-8 ####[facility] LABCLIA [id number] [place] [address] Urea nitrogen [Mass/Vol] 28 mg/dL High 7-21 [facility] Comment on above: Order Comment: Speci men Type: BLOOD SPECIMENOrdering Facility: [facility] Address: [address] [place] [address] Performed By: #### 2 4323-8 ####[facility] LABCLIA [id number] [place] [address] CBC W Auto Differential pane l (Bld)on 2023 Basophils (Bld) [#/Vol] 0.06 10*3/uL Normal <0.11 [facility] Comment on above: Order Comment: Speci men Type: BLOOD SPECIMENOrdering Facility: [facility] Address: [address] [place] [address] Performed By: #### 5 7021-8 ####[facility] LABCLIA [id number] [place] [address] Basophils/100 WBC (Bld) 0.6 % Normal [facility] Comment on above: Order Comment: Speci men Type: BLOOD SPECIMENOrdering Facility: [facility] Address: [address] [place] [address] Performed By: #### 5 7021-8 ####[facility] LABCLIA [id number] [place] [address] Differential cell count method Nom (Bld) Auto Normal [facility] Comment on above: Order Comment: Speci men Type: BLOOD SPECIMENOrdering Facility: [facility] Address: [address] [place] [address] Performed By: #### 5 7021-8 ####[facility] LABCLIA [id number] [place] [address] Eosinophils (Bld) [#/Vol] 0.14 10*3/uL Normal <0.46 [facility] Comment on above: Order Comment: Speci men Type: BLOOD SPECIMENOrdering Facility: [facility] Address: [address] [place] [address] Performed By: #### 5 7021-8 ####[facility] LABCLIA [id number] [place] [address] Eosinophils/100 WBC (Bld) 1.5 % Normal [facility] Comment on above: Order Comment: Speci men Type: BLOOD SPECIMENOrdering Facility: [facility] Address: [address] [place] [address] Performed By: #### 5 7021-8 ####[facility] LABCLIA [id number] [place] [address] Erythrocyte distribution width (RBC) [Ratio] 12.5 % Normal 11.5-15.0 [facility] Comment on above: Order Comment: Speci men Type: BLOOD SPECIMENOrdering Facility: [facility] Address: [address] [place] [address] Performed By: #### 5 7021-8 ####[facility] LABIA [id number] [place] [address] Hematocrit (Bld) [Volume fraction] 40.6 % Normal 36.0-46.0 [facility] Comment on above: Order Comment: Speci men Type: BLOOD SPECIMENOrdering Facility: [facility] Address: [address] [place] [address] Performed By: #### 5 7021-8 ####[facility] LABIA [id number] [place] [address] Hemoglobin (Bld) [Mass/Vol] 13.1 g/dL Normal 11.5-15.5 [facility] Comment on above: Order Comment: Speci men Type: BLOOD SPECIMENOrdering Facility: [facility] Address: [address] [place] [address] Performed By: #### 5 7021-8 ####[facility] LABIA [id number] [place] [address] Immature granulocytes (Bld) [#/Vol] 0.03 10*3/uL Normal <0.10 [facility] Comment on above: Order Comment: Speci men Type: BLOOD SPECIMENOrdering Facility: [facility] Address: [address] [place] [address] Performed By: #### 5 7021-8 ####[facility] LABIA [id number] [place] [address] Immature granulocytes/100 WBC (Bld) 0.3 % Normal [facility] Comment on above: Order Comment: Speci men Type: BLOOD SPECIMENOrdering Facility: [facility] Address: [address] [place] [address] Performed By: #### 5 7021-8 ####[facility] LABCLIA [id number] [place] [address] Lymphocytes (Bld) [#/Vol] 1.44 10*3/uL Normal 1.00-4.00 [facility] Comment on above: Order Comment: Speci men Type: BLOOD SPECIMENOrdering Facility: [facility] Address: [address] [place] [address] Performed By: #### 5 7021-8 ####[facility] LABCLIA [id number] [place] [address] Lymphocytes/100 WBC (Bld) 15.2 % Normal [facility] Comment on above: Order Comment: Speci men Type: BLOOD SPECIMENOrdering Facility: [facility] Address: [address] [place] [address] Performed By: #### 5 7021-8 ####[facility] LABCLIA [id number] [place] [address] MCH (RBC) [Entitic mass] 31.2 pg Normal 26.0-34.0 [facility] Comment on above: Order Comment: Speci men Type: BLOOD SPECIMENOrdering Facility: [facility] Address: [address] [place] [address] Performed By: #### 5 7021-8 ####[facility] LABCLIA [id number] [place] [address] MCHC (RBC) [Mass/Vol] 32.3 g/dL Normal 30.5-36.0 [facility] Comment on above: Order Comment: Speci men Type: BLOOD SPECIMENOrdering Facility: [facility] Address: [address] [place] [address] Performed By: #### 5 7021-8 ####[facility] LABCLIA [id number] [place] [address] MCV (RBC) [Entitic vol] 96.7 fL Normal 80.0-100.0 [facility] Comment on above: Order Comment: Speci men Type: BLOOD SPECIMENOrdering Facility: [facility] Address: [address] [place] [address] Performed By: #### 5 7021-8 ####[facility] LABCLIA [id number] [place] [address] Monocytes (Bld) [#/Vol] 0.82 10*3/uL Normal <0.87 [facility] Comment on above: Order Comment: Speci men Type: BLOOD SPECIMENOrdering Facility: [facility] Address: [address] [place] [address] Performed By: #### 5 7021-8 ####[facility] LABCLIA [id number] [place] [address] Monocytes/100 WBC (Bld) 8.7 % Normal [facility] Comment on above: Order Comment: Speci men Type: BLOOD SPECIMENOrdering Facility: [facility] Address: [address] [place] [address] Performed By: #### 5 7021-8 ####[facility] LABCLIA [id number] [place] [address] Neutrophils (Bld) [#/Vol] 6.97 10*3/uL Normal 1.45-7.50 [facility] Comment on above: Order Comment: Speci men Type: BLOOD SPECIMENOrdering Facility: [facility] Address: [address] [place] [address] Performed By: #### 5 7021-8 ####[facility] LABCLIA [id number] [place] [address] Neutrophils/100 WBC (Bld) 73.7 % Normal [facility] Comment on above: Order Comment: Speci men Type: BLOOD SPECIMENOrdering Facility: [facility] Address: [address] [place] [address] Performed By: #### 5 7021-8 ####[facility] LABCLIA [id number] [place] [address] Nucleated RBC (Bld) [#/Vol] 10*3/uL Normal <0.01 [facility] Comment on above: Order Comment: Speci men Type: BLOOD SPECIMENOrdering Facility: [facility] Address: [address] [place] [address] Performed By: #### 5 7021-8 ####[facility] LABCLIA [id number] [place] [address] Nucleated RBC/100 WBC (Bld) [Ratio] 0.0 /100 WBC Normal [facility] Comment on above: Order Comment: Speci men Type: BLOOD SPECIMENOrdering Facility: [facility] Address: [address] [place] [address] Performed By: #### 5 7021-8 ####[facility] LABCLIA [id number] [place] [address] Platelet mean volume (Bld) [Entitic vol] 11.0 fL Normal 9.0-12.7 [facility] Comment on above: Order Comment: Speci men Type: BLOOD SPECIMENOrdering Facility: [facility] Address: [address] [place] [address] Performed By: #### 5 7021-8 ####[facility] LABCLIA [id number] [place] [address] Platelets (Bld) [#/Vol] 238 10*3/uL Normal 150-400 [facility] Comment on above: Order Comment: Speci men Type: BLOOD SPECIMENOrdering Facility: [facility] Address: [address] [place] [address] Performed By: #### 5 7021-8 ####[facility] LABCLIA [id number] [place] [address] RBC (Bld) [#/Vol] 4.20 10*6/uL Normal 3.90-5.20 [facility] Comment on above: Order Comment: Speci men Type: BLOOD SPECIMENOrdering Facility: [facility] Address: [facility] [place] [address] Performed By: #### 5 7021-8 ####[facility] LABCLIA [id number] [place] [address] WBC (Bld) [#/Vol] 9.46 10*3/uL Normal 3.70-11.00 [facility] Comment on above: Order Comment: Speci men Type: BLOOD SPECIMENOrdering Facility: [facility] Address: [address] [place] [address] Performed By: #### 5 7021-8 ####[facility] LABIA [id number] [place] [address] Calcium.ionized [Moles/Vol]o n 07-02-2023 Calcium.ionized (Bld) [Mass/Vol] 1.23 mmol/L Normal 1.08-1.30 [facility] Comment on above: Order Comment: Speci men Type: BLOOD SPECIMEN [facility] Address: [address] [place] [address] Performed By: #### 1 995-0 #### [facility] [place] [id number] [address] [place] [address] [place] Calcium.ionized adjusted to pH 7.4 (Bld) [Moles/Vol] 1.20 mmol/L Normal 1.08-1.30 [facility] Comment on above: Order Comment: Speci men Type: BLOOD SPECIMEN [facility] Address: [address] [place] [address] Performed By: #### 1 995-0 #### [facility] [place] [id number] [address] [place] [address] [place] Comprehensive metabolic 2000 panelon 07-02-2023 Albumin [Mass/Vol] 4.5 g/dL Normal 3.9-4.9 [facility] Comment on above: Order Comment: Speci men Type: BLOOD SPECIMENOrdering Facility: [facility] Address: [address] [place] [address] Performed By: #### 2 4323-8 ####[facility] LABCLIA [id number] [place] [address] ALP [Catalytic activity/Vol] 89 U/L Normal 34-123 [facility] Comment on above: Order Comment: Speci men Type: BLOOD SPECIMENOrdering Facility: [facility] Address: [address] [place] [address] Performed By: #### 2 4323-8 ####[facility] LABCLIA [id number] [place] [address] ALT [Catalytic activity/Vol] 10 U/L Normal 7-38 [facility] Comment on above: Order Comment: Speci men Type: BLOOD SPECIMENOrdering Facility: [facility] Address: [address] [place] [address] Performed By: #### 2 4323-8 ####[facility] LABCLIA [id number] [place] [address] Anion gap [Moles/Vol] 15 mmol/L Normal 9-18 [facility] Comment on above: Order Comment: Speci men Type: BLOOD SPECIMENOrdering Facility: [facility] Address: [address] [place] [address] Performed By: #### 2 4323-8 ####[facility] LABCLIA [id number] [place] [address] AST [Catalytic activity/Vol] 14 U/L Normal 13-35 [facility] Comment on above: Order Comment: Speci men Type: BLOOD SPECIMENOrdering Facility: [facility] Address: [address] [place] [address] Performed By: #### 2 4323-8 ####[facility] LABCLIA [id number] [place] [address] Bilirubin [Mass/Vol] 0.4 mg/dL Normal 0.2-1.3 [facility] Comment on above: Order Comment: Speci men Type: BLOOD SPECIMENOrdering Facility: [facility] Address: [address] [place] [address] Performed By: #### 2 4323-8 ####[facility] LABCLIA [id number] [place] [address] Calcium [Mass/Vol] 9.9 mg/dL Normal 8.5-10.2 [facility] Comment on above: Order Comment: Speci men Type: BLOOD SPECIMENOrdering Facility: [facility] Address: [address] [place] [address] Performed By: #### 2 4323-8 ####[facility] LABCLIA [id number] [place] [address] Chloride [Moles/Vol] 99 mmol/L Normal 97-105 [facility] Comment on above: Order Comment: Speci men Type: BLOOD SPECIMENOrdering Facility: [facility] Address: [address] [place] [address] Performed By: #### 2 4323-8 ####[facility] LABCLIA [id number] [place] [address] CO2 [Moles/Vol] 28 mmol/L Normal 22-30 [facility] Comment on above: Order Comment: Speci men Type: BLOOD SPECIMENOrdering Facility: [facility] Address: [address] [place] [address] Performed By: #### 2 4323-8 ####[facility] LABCLIA [id number] [place] [address] Creatinine [Mass/Vol] 1.31 mg/dL High 0.58-0.96 [facility] Comment on above: Order Comment: Speci men Type: BLOOD SPECIMENOrdering Facility: [facility] Address: [address] [place] [address] Performed By: #### 2 4323-8 ####[facility] LABCLIA [id number] [place] [address] Creatinine and Glomerular filtration rate.predicted panel (S/P/Bld) 42 mL/min/1.73m??? Low >=60 [facility] Comment on above: Order Comment: Anastacio bonilla Type: BLOOD SPECIMENOrdering Facility: [facility] Address: [address] [place] [address] Result Comment: Sugar mated Glomerular Filtration Rate [...] actual GFR. Performed By: #### 2 4323-8 ####[facility] LABCLIA [id number] [place] [address] Glucose [Mass/Vol] 183 mg/dL High 74-99 [facility] Comment on above: Order Comment: Anastacio bonilla Type: BLOOD SPECIMENOrdering Facility: [facility] Address: [address] [place] [address] Result Comment: The [place] [employer] (ADA) provides guidance for cutoff [...] Standards of Medical Care in Diabetes 2016, [place] [employer]. Diabetes Care. 2016.39(Suppl 1). Performed By: #### 2 4323-8 ####[facility] LABCLIA [id number] [place] [address] Potassium [Moles/Vol] 3.9 mmol/L Normal 3.7-5.1 [facility] Comment on above: Order Comment: Anastacio bonilla Type: BLOOD SPECIMENOrdering Facility: [facility] Address: [address] [place] [address] Performed By: #### 2 4323-8 ####[facility] LABCLIA [id number] [place] [address] Protein [Mass/Vol] 7.2 g/dL Normal 6.3-8.0 [facility] Comment on above: Order Comment: Speci men Type: BLOOD SPECIMENOrdering Facility: [facility] Address: [address] [place] [address] Performed By: #### 2 4323-8 ####[facility] LABCLIA [id number] [place] [address] Sodium [Moles/Vol] 142 mmol/L Normal 136-144 [facility] Comment on above: Order Comment: Speci men Type: BLOOD SPECIMENOrdering Facility: [facility] Address: [address] [place] [address] Performed By: #### 2 4323-8 ####[facility] LABCLIA [id number] [place] [address] Urea nitrogen [Mass/Vol] 29 mg/dL High 7-21 [facility] Comment on above: Order Comment: Speci men Type: BLOOD SPECIMENOrdering Facility: [facility] Address: [address] [place] [address] Performed By: #### 2 4323-8 ####[facility] LABCLIA [id number] [place] [address] CBC W Auto Differential pane l (Bld)on 05-21-2023 Basophils (Bld) [#/Vol] 0.07 10*3/uL <0.11 k/uL [facility] Basophils/100 WBC (Bld) 0.6 % [facility] Differential cell count method Nom (Bld) Auto [facility] Eosinophils (Bld) [#/Vol] 0.17 10*3/uL <0.46 k/uL [facility] Eosinophils/100 WBC (Bld) 1.6 % [facility] Erythrocyte distribution width (RBC) [Ratio] 12.8 % 11.5 - 15.0 % [facility] Hematocrit (Bld) [Volume fraction] 38.7 % 36.0 - 46.0 % [facility] Hemoglobin (Bld) [Mass/Vol] 13.0 g/dL 11.5 - 15.5 g/dL [facility] Immature granulocytes (Bld) [#/Vol] 0.04 10*3/uL <0.10 k/uL [facility] Immature granulocytes/100 WBC (Bld) 0.4 % [facility] Lymphocytes (Bld) [#/Vol] 1.74 10*3/uL 1.00 - 4.00 k/uL [facility] Lymphocytes/100 WBC (Bld) 16.0 % [facility] MCH (RBC) [Entitic mass] 31.7 pg 26.0 - 34.0 pg [facility] MCHC (RBC) [Mass/Vol] 33.6 g/dL 30.5 - 36.0 g/dL [facility] MCV (RBC) [Entitic vol] 94.4 fL 80.0 - 100.0 fL [facility] Monocytes (Bld) [#/Vol] 0.94 10*3/uL High <0.87 k/uL [facility] Monocytes/100 WBC (Bld) 8.6 % [facility] Neutrophils (Bld) [#/Vol] 7.94 10*3/uL High 1.45 - 7.50 k/uL [facility] Neutrophils/100 WBC (Bld) 72.8 % [facility] Nucleated RBC (Bld) [#/Vol] <0.01 k/uL [facility] Nucleated RBC/100 WBC (Bld) [Ratio] 0.0 /100 WBC [facility] Platelet mean volume (Bld) [Entitic vol] 12.1 fL 9.0 - 12.7 fL [facility] Platelets (Bld) [#/Vol] 293 10*3/uL 150 - 400 k/uL [facility] RBC (Bld) [#/Vol] 4.10 10*6/uL 3.90 - 5.2 0 m/uL [facility] WBC (Bld) [#/Vol] 10.90 10*3/uL 3.70 - 11.00 k/uL [facility] Rita 05-21-2023 CNPN Telephone (HEMASA) -- ANDREW BARROS ([id number]) 1945 F Date Time Provider Department 05/21/23 [...] As of Date: 05/21/2023 Noted Allergy Reaction [id number] REDUCTASE INHIBIT*01/21/2018 16 - Unknown Comments: Other [...] Status:Closed by CLEMENTE SRIVASTAVA on 05/21/23 Normal [facility] Comprehensive metabolic 2000 panelon 05-21-2023 Albumin [Mass/Vol] 4.6 g/dL 3.9 - 4.9 g/dL [facility] ALP [Catalytic activity/Vol] 96 U/L 34 - 123 U/L [facility] ALT [Catalytic activity/Vol] 13 U/L 7 - 38 U/L [facility] Anion gap [Moles/Vol] 13 mmol/L 9 - 18 mmol/L [facility] AST [Catalytic activity/Vol] 18 U/L 13 - 35 U/L [facility] Bilirubin [Mass/Vol] 0.3 mg/dL 0.2 - 1 .3 mg/dL [facility] Calcium [Mass/Vol] 10.0 mg/dL 8.5 - 10. 2 mg/dL [facility] Chloride [Moles/Vol] 101 mmol/L 97 - 10 5 mmol/L [facility] CO2 [Moles/Vol] 26 mmol/L 22 - 30 mmol/L [facility] Creatinine [Mass/Vol] 1.32 mg/dL High 0.58 - 0.96 mg/dL [facility] Estimated Glomerular Filtration Rate 41 mL/min/1.73m Low >=60 mL/min/1.73 m [facility] Glucose [Mass/Vol] 119 mg/dL High 74 - 99 mg/dL [facility] Potassium [Moles/Vol] 4.1 mmol/L 3.7 - 5.1 mmol/L [facility] Protein [Mass/Vol] 7.6 g/dL 6.3 - 8.0 g/dL [facility] Sodium [Moles/Vol] 140 mmol/L 136 - 144 mmol/L [facility] Urea nitrogen [Mass/Vol] 32 mg/dL High 7 - 21 mg/dL [facility] CBC W Auto Differential pane l (Bld)on 05-20-2023 Basophils (Bld) [#/Vol] 0.07 10*3/uL Normal <0.11 [facility] Comment on above: Order Comment: Speci men Type: BLOOD SPECIMENOrdering Facility: [facility] Address: [address] [place] [address] Performed By: #### 5 7021-8 ####[facility] LABCLIA [id number] [place] [address] Basophils/100 WBC (Bld) 0.6 % Normal [facility] Comment on above: Order Comment: Speci men Type: BLOOD SPECIMENOrdering Facility: [facility] Address: [address] [place] [address] Performed By: #### 5 7021-8 ####[facility] LABCLIA [id number] [place] [address] Differential cell count method Nom (Bld) Auto Normal [facility] Comment on above: Order Comment: Speci men Type: BLOOD SPECIMENOrdering Facility: [facility] Address: [address] [place] [address] Performed By: #### 5 7021-8 ####[facility] LABCLIA [id number] [place] [address] Eosinophils (Bld) [#/Vol] 0.17 10*3/uL Normal <0.46 [facility] Comment on above: Order Comment: Speci men Type: BLOOD SPECIMENOrdering Facility: [facility] Address: [address] [place] [address] Performed By: #### 5 7021-8 ####[facility] LABCLIA [id number] [place] [address] Eosinophils/100 WBC (Bld) 1.6 % Normal [facility] Comment on above: Order Comment: Speci men Type: BLOOD SPECIMENOrdering Facility: [facility] Address: [address] [address] Performed By: #### 5 7021-8 ####[facility] LABCLIA [id number] [place] [address] Erythrocyte distribution width (RBC) [Ratio] 12.8 % Normal 11.5-15.0 [facility] Comment on above: Order Comment: Speci men Type: BLOOD SPECIMENOrdering Facility: [facility] Address: [address] [address] Performed By: #### 5 7021-8 ####[facility] LABCLIA [id number] [place] [address] Hematocrit (Bld) [Volume fraction] 38.7 % Normal 36.0-46.0 [facility] Comment on above: Order Comment: Speci men Type: BLOOD SPECIMENOrdering Facility: [facility] Address: [address] [address] Performed By: #### 5 7021-8 ####[facility] LABCLIA [id number] [place] [address] Hemoglobin (Bld) [Mass/Vol] 13.0 g/dL Normal 11.5-15.5 [facility] Comment on above: Order Comment: Speci men Type: BLOOD SPECIMENOrdering Facility: [facility] Address: [address] [place] [address] Performed By: #### 5 7021-8 ####[facility] LABCLIA [id number] [place] [address] Immature granulocytes (Bld) [#/Vol] 0.04 10*3/uL Normal <0.10 [facility] Comment on above: Order Comment: Speci men Type: BLOOD SPECIMENOrdering Facility: [facility] Address: [address] [place] [address] Performed By: #### 5 7021-8 ####[facility] LABCLIA [id number] [place] [address] Immature granulocytes/100 WBC (Bld) 0.4 % Normal [facility] Comment on above: Order Comment: Speci men Type: BLOOD SPECIMENOrdering Facility: [facility] Address: [address] [place] [address] Performed By: #### 5 7021-8 ####[facility] LABCLIA [id number] [place] [address] Lymphocytes (Bld) [#/Vol] 1.74 10*3/uL Normal 1.00-4.00 [facility] Comment on above: Order Comment: Speci men Type: BLOOD SPECIMENOrdering Facility: [facility] Address: [address] [place] [address] Performed By: #### 5 7021-8 ####[facility] LABCLIA [id number] [place] [address] Lymphocytes/100 WBC (Bld) 16.0 % Normal [facility] Comment on above: Order Comment: Speci men Type: BLOOD SPECIMENOrdering Facility: [facility] Address: [address] [place] [address] Performed By: #### 5 7021-8 ####[facility] LABCLIA [id number] [place] [address] MCH (RBC) [Entitic mass] 31.7 pg Normal 26.0-34.0 [facility] Comment on above: Order Comment: Speci men Type: BLOOD SPECIMENOrdering Facility: [facility] Address: [address] [place] [address] Performed By: #### 5 7021-8 ####[facility] LABCLIA [id number] [place] [address] MCHC (RBC) [Mass/Vol] 33.6 g/dL Normal 30.5-36.0 [facility] Comment on above: Order Comment: Speci men Type: BLOOD SPECIMENOrdering Facility: [facility] Address: [address] [place] [address] Performed By: #### 5 7021-8 ####[facility] LABCLIA [id number] [place] [address] MCV (RBC) [Entitic vol] 94.4 fL Normal 80.0-100.0 [facility] Comment on above: Order Comment: Speci men Type: BLOOD SPECIMENOrdering Facility: [facility] Address: [address] [place] [address] Performed By: #### 5 7021-8 ####[facility] LABCLIA [id number] [place] [address] Monocytes (Bld) [#/Vol] 0.94 10*3/uL High <0.87 [facility] Comment on above: Order Comment: Speci men Type: BLOOD SPECIMENOrdering Facility: [facility] Address: [address] [place] [address] Performed By: #### 5 7021-8 ####[facility] LABCLIA [id number] [place] [address] Monocytes/100 WBC (Bld) 8.6 % Normal [facility] Comment on above: Order Comment: Speci men Type: BLOOD SPECIMENOrdering Facility: [facility] Address: [address] [place] [address] Performed By: #### 5 7021-8 ####[facility] LABCLIA [id number] [place] [address] Neutrophils (Bld) [#/Vol] 7.94 10*3/uL High 1.45-7.50 [facility] Comment on above: Order Comment: Speci men Type: BLOOD SPECIMENOrdering Facility: [facility] Address: [address] [place] [address] Performed By: #### 5 7021-8 ####[facility] LABCLIA [id number] [place] [address] Neutrophils/100 WBC (Bld) 72.8 % Normal [facility] Comment on above: Order Comment: Speci men Type: BLOOD SPECIMENOrdering Facility: [facility] Address: [address] [place] [address] Performed By: #### 5 7021-8 ####[facility] LABCLIA [id number] [place] [address] Nucleated RBC (Bld) [#/Vol] 10*3/uL Normal <0.01 [facility] Comment on above: Order Comment: Speci men Type: BLOOD SPECIMENOrdering Facility: [facility] Address: [address] [place] [address] Performed By: #### 5 7021-8 ####[facility] LABCLIA [id number] [place] [address] Nucleated RBC/100 WBC (Bld) [Ratio] 0.0 /100 WBC Normal [facility] Comment on above: Order Comment: Speci men Type: BLOOD SPECIMENOrdering Facility: [facility] Address: [address] [place] [address] Performed By: #### 5 7021-8 ####[facility] LABIA [id number] [place] [address] Platelet mean volume (Bld) [Entitic vol] 12.1 fL Normal 9.0-12.7 [facility] Comment on above: Order Comment: Speci men Type: BLOOD SPECIMENOrdering Facility: [facility] Address: [address] [address] Performed By: #### 5 7021-8 ####[facility] LABIA [id number] [place] [address] Platelets (Bld) [#/Vol] 293 10*3/uL Normal 150-400 [facility] Comment on above: Order Comment: Speci men Type: BLOOD SPECIMENOrdering Facility: [facility] Address: [address] [address] Performed By: #### 5 7021-8 ####[facility] LABIA [id number] [place] [address] RBC (Bld) [#/Vol] 4.10 10*6/uL Normal 3.90-5.20 [facility] Comment on above: Order Comment: Speci men Type: BLOOD SPECIMENOrdering Facility: [facility] Address: [address] [address] Performed By: #### 5 7021-8 ####[facility] LABIA [id number] [place] [address] WBC (Bld) [#/Vol] 10.90 10*3/uL Normal 3.70-11.00 [facility] Comment on above: Order Comment: Speci men Type: BLOOD SPECIMENOrdering Facility: [facility] Address: [address] [place] [place] [address] Performed By: #### 5 7021-8 ####[facility] LABIA [id number] [place] [address] CNOVSPon 05-20-2023 CNOVSP Visit (SP) Office (Barbara SUERO) -- ANDREW BARROS ([id number]) 1945 F Date Time Provider Department 05/20/23 3:00 PM SANDEEP LENZ During your visit today, we recorded the following information about you: Temperature Pulse Respiration Blood pressure 97.8 degrees 68/minute 16/minute 168/72 Weight Height 58.9 kg 1.626 m Sandeep Lenz MD 05/30/2023 5:58 AM Signed Sult nephrology NAME: Andrew Barros CLINIC NO.: [id number] DATE OF SERVICE: May 20, 2023 (Eduardo) [...] outer quadrant, invasive ductal carcinoma, ER postive, IN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 Mammograms at [facility] on 01/04/2021 Bi-Rads 2 benign. REVIEW OF [...] wounds or petechiae. ALLERGIES: ALLERGIES Allergen Reactions Nnfnluf-Mit-Mkr Red* Unknown Other reaction(s): AOF MEDICATIONS: anastrozole [...] Take 500 (more content not included)... Normal [facility] -- ANDREW BARROS ([id number]) 1945 F Date Time Provider Department 05/20/23 SANDEEP LENZ [facility] During your visit today, we recorded the following information about you: Samina Anderson 05/20/2023 4:06 PM Signed Refer to nephrology for hypercalcemia and kidney failure Lisa/Yan: Can you please refer patient and follow up? Thanks! Jennifer Christensen 05/22/2023 8:46 AM Signed Lisa: Information ready for you. Jennifer [facility] 05/30/2023 7:49 AM Signed Records faxed to Nephrology. Jennifer Aviles 06/05/2023 10:00 AM Signed Called spoke with Deepika at Nephrology office. She states she has not received this referral and has asked us to please refax it. LISA: Please refax this referral to Nephrology office. Thank You. Jennifer [facility] 06/05/2023 10:36 AM Signed Records re-faxed [...] As of Date: 05/20/2023 Noted Allergy Reaction IARLBFL-SGI-CLV REDUCTASE INHIBIT*01/21/2018 16 - Unknown Comments: Other reaction(s): AOF Date Reviewed: 05/20/2023 Reviewed by: Arabella Cotter MA - Fully Assessed Reason for Visit: Referral Information [8053] Cmt: Nephrology Prescriptions as of 06/10/2023 - [...] Status:Closed by SAMINA ANDERSON on 06/10/23 Normal [facility] Calcium.ionized [Moles/Vol]o n 05-20-2023 Calcium.ionized (Bld) [Mass/Vol] 1.23 mmol/L 1.08 - 1.30 mmol/L [facility] Calcium.ionized adjusted to pH 7.4 (Bld) [Moles/Vol] 1.20 mmol/L 1.08 - 1.30 mmol/L [facility] Calcium.ionized (Bld) [Mass/Vol] 1.23 mmol/L Normal 1.08-1.30 [facility] Comment on above: Order Comment: Speci men Type: BLOOD SPECIMENOrdering Facility: [facility] Address: [address] [place] [address] Performed By: #### 1 995-0 ####[facility] LABIA [id number] [address] [facility] Calcium.ionized adjusted to pH 7.4 (Bld) [Moles/Vol] 1.20 mmol/L Normal 1.08-1.30 [facility] Comment on above: Order Comment: Speci men Type: BLOOD SPECIMENOrdering Facility: [facility] Address: [address] [place] [address] Performed By: #### 1 995-0 ####[facility] LABCLIA [id number] [place] [address] [place] Comprehensive metabolic 2000 panelon 05-20-2023 Albumin [Mass/Vol] 4.6 g/dL Normal 3.9-4.9 [facility] Comment on above: Order Comment: Speci men Type: BLOOD SPECIMENOrdering Facility: [facility] Address: [address] [place] [address] Performed By: #### 2 4323-8 ####[facility] LABCLIA [id number] [place] [address] ALP [Catalytic activity/Vol] 96 U/L Normal 34-123 [facility] Comment on above: Order Comment: Speci men Type: BLOOD SPECIMENOrdering Facility: [facility] Address: [address] [place] [address] Performed By: #### 2 4323-8 ####[facility] LABCLIA [id number] [place] [address] ALT [Catalytic activity/Vol] 13 U/L Normal 7-38 [facility] Comment on above: Order Comment: Speci men Type: BLOOD SPECIMENOrdering Facility: [facility] Address: [address] [place] [address] Performed By: #### 2 4323-8 ####[facility] LABCLIA [id number] [place] [address] Anion gap [Moles/Vol] 13 mmol/L Normal 9-18 [facility] Comment on above: Order Comment: Speci men Type: BLOOD SPECIMENOrdering Facility: [facility] Address: [address] [address] Performed By: #### 2 4323-8 ####[facility] LABCLIA [id number] [place] [address] AST [Catalytic activity/Vol] 18 U/L Normal 13-35 [facility] Comment on above: Order Comment: Speci men Type: BLOOD SPECIMENOrdering Facility: [facility] Address: [address] [place] [address] Performed By: #### 2 4323-8 ####[facility] LABCLIA [id number] [place] [address] Bilirubin [Mass/Vol] 0.3 mg/dL Normal 0.2-1.3 [facility] Comment on above: Order Comment: Speci men Type: BLOOD SPECIMENOrdering Facility: [facility] Address: [address] [address] Performed By: #### 2 4323-8 ####[facility] LABCLIA [id number] [place] [address] Calcium [Mass/Vol] 10.0 mg/dL Normal 8.5-10.2 [facility] Comment on above: Order Comment: Speci men Type: BLOOD SPECIMENOrdering Facility: [facility] Address: [address] [place] [address] Performed By: #### 2 4323-8 ####[facility] LABCLIA [id number] [place] [address] Chloride [Moles/Vol] 101 mmol/L Normal 97-105 [facility] Comment on above: Order Comment: Speci men Type: BLOOD SPECIMENOrdering Facility: [facility] Address: [address] [place] [address] Performed By: #### 2 4323-8 ####[facility] LABCLIA [id number] [place] [address] CO2 [Moles/Vol] 26 mmol/L Normal 22-30 [facility] Comment on above: Order Comment: Speci men Type: BLOOD SPECIMENOrdering Facility: [facility] Address: [address] [place] [address] Performed By: #### 2 4323-8 ####[facility] LABCLIA [id number] [place] [address] Creatinine [Mass/Vol] 1.32 mg/dL High 0.58-0.96 [facility] Comment on above: Order Comment: Speci men Type: BLOOD SPECIMENOrdering Facility: [facility] Address: [address] [place] [address] Performed By: #### 2 4323-8 ####[facility] LABCLIA [id number] [place] [address] Creatinine and Glomerular filtration rate.predicted panel (S/P/Bld) 41 mL/min/1.73m??? Low >=60 [facility] Comment on above: Order Comment: Anastacio irene Type: BLOOD SPECIMENOrdering Facility: [facility] Address: [address] [place] [address] Result Comment: Sugar mated Glomerular Filtration Rate [...] actual GFR. Performed By: #### 2 4323-8 ####[facility] LABCLIA [id number] [place] [address] Glucose [Mass/Vol] 119 mg/dL High 74-99 [facility] Comment on above: Order Comment: Anastacio bonilla Type: BLOOD SPECIMENOrdering Facility: [facility] Address: [address] [place] [address] Result Comment: The [place] Diabetes Association (ADA) provides guidance for cutoff [...] Standards of Medical Care in Diabetes 2016, [place] [employer] Association. Diabetes Care. 2016.39(Suppl 1). Performed By: #### 2 4323-8 ####[facility] LABCLIA [id number] [place] [address] Potassium [Moles/Vol] 4.1 mmol/L Normal 3.7-5.1 [facility] Comment on above: Order Comment: Speci men Type: BLOOD SPECIMENOrdering Facility: [facility] Address: [address] [place] [address] Performed By: #### 2 4323-8 ####[facility] LABIA [id number] [place] [address] Protein [Mass/Vol] 7.6 g/dL Normal 6.3-8.0 [facility] Comment on above: Order Comment: Speci men Type: BLOOD SPECIMENOrdering Facility: [facility] Address: [address] [place] [address] Performed By: #### 2 4323-8 ####[facility] LABIA [id number] [place] [address] Sodium [Moles/Vol] 140 mmol/L Normal 136-144 [facility] Comment on above: Order Comment: Speci men Type: BLOOD SPECIMENOrdering Facility: [facility] Address: [address] [place] [address] Performed By: #### 2 4323-8 ####[facility] LABIA [id number] [place] [address] Urea nitrogen [Mass/Vol] 32 mg/dL High 7-21 [facility] Comment on above: Order Comment: Speci men Type: BLOOD SPECIMENOrdering Facility: [facility] Address: [address] [place] [address] Performed By: #### 2 4323-8 ####[facility] LABIA [id number] [place] [address] CNSWon 05-09-2023 CNSW Social Work (HEMAS[facility]) -- ANDREW BARROS ([id number]) 1945 F Date Time Provider Department 05/09/23 ALEIDA VARGAS During your visit today, we recorded the following information about you: Aleida Vargas LSW 05/09/2023 11:00 AM Signed Patient appears on the [facility] First Time Treatment List for a non-oncology treatment. No psychosocial assessment is indicated. DENIA Gupta-Pritesh Allergies As of Date: 05/09/2023 Noted Allergy Reaction FTGYUDK-ICD-UAH REDUCTASE INHIBIT*01/21/2018 16 - Unknown Comments: Other [...] Status:Closed by ALEIDA VARGAS on 05/09/23 Normal [facility] CA 15-3 BLDon 05-01-2023 Cancer Ag 15-3 Qn 9.9 U/mL <26.0 U/mL [facility] CA 27.29 BLOODon 05-01-2023 Cancer Ag 27-29 Qn 12.5 [arb'U]/mL <38.6 U/mL C [facility] CBC W Auto Differential pane l (Bld)on 05-01-2023 Basophils (Bld) [#/Vol] 0.06 10*3/uL <0.11 k/uL [facility] Basophils/100 WBC (Bld) 0.6 % [facility] Differential cell count method Nom (Bld) Auto [facility] Eosinophils (Bld) [#/Vol] 0.18 10*3/uL <0.46 k/uL [facility] Eosinophils/100 WBC (Bld) 1.9 % [facility] Erythrocyte distribution width (RBC) [Ratio] 12.7 % 11.5 - 15.0 % [facility] Hematocrit (Bld) [Volume fraction] 36.4 % 36.0 - 46.0 % [facility] Hemoglobin (Bld) [Mass/Vol] 12.2 g/dL 11.5 - 15.5 g/dL [facility] Immature granulocytes (Bld) [#/Vol] 0.03 10*3/uL <0.10 k/uL [facility] Immature granulocytes/100 WBC (Bld) 0.3 % [facility] Lymphocytes (Bld) [#/Vol] 1.62 10*3/uL 1.00 - 4.00 k/uL [facility] Lymphocytes/100 WBC (Bld) 17.3 % [facility] MCH (RBC) [Entitic mass] 32.0 pg 26.0 - 34.0 pg [facility] MCHC (RBC) [Mass/Vol] 33.5 g/dL 30.5 - 36.0 g/dL [facility] MCV (RBC) [Entitic vol] 95.5 fL 80.0 - 100.0 fL [facility] Monocytes (Bld) [#/Vol] 0.99 10*3/uL High <0.87 k/uL [facility] Monocytes/100 WBC (Bld) 10.6 % [facility] Neutrophils (Bld) [#/Vol] 6.50 10*3/uL 1.45 - 7.50 k/uL [facility] Neutrophils/100 WBC (Bld) 69.3 % [facility] Nucleated RBC (Bld) [#/Vol] <0.01 k/uL [facility] Nucleated RBC/100 WBC (Bld) [Ratio] 0.0 /100 WBC [facility] Platelet mean volume (Bld) [Entitic vol] 11.9 fL 9.0 - 12.7 fL [facility] Platelets (Bld) [#/Vol] 252 10*3/uL 150 - 400 k/uL [facility] RBC (Bld) [#/Vol] 3.81 10*6/uL Low 3.90 - 5.2 0 m/uL [facility] WBC (Bld) [#/Vol] 9.38 10*3/uL 3.70 - 11.00 k/uL [facility] Comprehensive metabolic 2000 panelon 05-01-2023 Albumin [Mass/Vol] 4.3 g/dL 3.9 - 4.9 g/dL [facility] ALP [Catalytic activity/Vol] 93 U/L 34 - 123 U/L [facility] ALT [Catalytic activity/Vol] 14 U/L 7 - 38 U/L [facility] Anion gap [Moles/Vol] 14 mmol/L 9 - 18 mmol/L [facility] AST [Catalytic activity/Vol] 18 U/L 13 - 35 U/L [facility] Bilirubin [Mass/Vol] 0.3 mg/dL 0.2 - 1 .3 mg/dL [facility] Calcium [Mass/Vol] 10.6 mg/dL High 8.5 - 10. 2 mg/dL [facility] Chloride [Moles/Vol] 98 mmol/L 97 - 10 5 mmol/L [facility] CO2 [Moles/Vol] 26 mmol/L 22 - 30 mmol/L [facility] Creatinine [Mass/Vol] 1.38 mg/dL High 0.58 - 0.96 mg/dL [facility] Estimated Glomerular Filtration Rate 39 mL/min/1.73m Low >=60 mL/min/1.73 m [facility] Glucose [Mass/Vol] 207 mg/dL High 74 - 99 mg/dL [facility] Potassium [Moles/Vol] 3.7 mmol/L 3.7 - 5.1 mmol/L [facility] Protein [Mass/Vol] 6.9 g/dL 6.3 - 8.0 g/dL [facility] Sodium [Moles/Vol] 138 mmol/L 136 - 144 mmol/L [facility] Urea nitrogen [Mass/Vol] 39 mg/dL High 7 - 21 mg/dL [facility] CBC W Auto Differential pane l (Bld)on 04-30-2023 Basophils (Bld) [#/Vol] 0.06 10*3/uL Normal <0.11 [facility] Comment on above: Order Comment: Speci men Type: BLOOD SPECIMENOrdering Facility: [facility] Address: [address] [place] [address] Performed By: #### 5 7021-8 ####[facility] LABCLIA [id number] [place] [address] Basophils/100 WBC (Bld) 0.6 % Normal [facility] Comment on above: Order Comment: Speci men Type: BLOOD SPECIMENOrdering Facility: [facility] Address: [address] [address] Performed By: #### 5 7021-8 ####[facility] LABCLIA [id number] [place] [address] Differential cell count method Nom (Bld) Auto Normal [facility] Comment on above: Order Comment: Speci men Type: BLOOD SPECIMENOrdering Facility: [facility] Address: [address] [address] Performed By: #### 5 7021-8 ####[facility] LABCLIA [id number] [place] [address] Eosinophils (Bld) [#/Vol] 0.18 10*3/uL Normal <0.46 [facility] Comment on above: Order Comment: Speci men Type: BLOOD SPECIMENOrdering Facility: [facility] Address: [address] [address] Performed By: #### 5 7021-8 ####[facility] LABCLIA [id number] [place] [address] Eosinophils/100 WBC (Bld) 1.9 % Normal [facility] Comment on above: Order Comment: Speci men Type: BLOOD SPECIMENOrdering Facility: [facility] Address: [address] [place] [address] Performed By: #### 5 7021-8 ####[facility] LABCLIA [id number] [place] [address] Erythrocyte distribution width (RBC) [Ratio] 12.7 % Normal 11.5-15.0 [facility] Comment on above: Order Comment: Speci men Type: BLOOD SPECIMENOrdering Facility: [facility] Address: [address] [place] [address] Performed By: #### 5 7021-8 ####[facility] LABCLIA [id number] [place] [address] Hematocrit (Bld) [Volume fraction] 36.4 % Normal 36.0-46.0 [facility] Comment on above: Order Comment: Speci men Type: BLOOD SPECIMENOrdering Facility: [facility] Address: [address] [place] [address] Performed By: #### 5 7021-8 ####[facility] LABCLIA [id number] [place] [address] Hemoglobin (Bld) [Mass/Vol] 12.2 g/dL Normal 11.5-15.5 [facility] Comment on above: Order Comment: Speci men Type: BLOOD SPECIMENOrdering Facility: [facility] Address: [address] [place] [address] Performed By: #### 5 7021-8 ####[facility] LABCLIA [id number] [place] [address] Immature granulocytes (Bld) [#/Vol] 0.03 10*3/uL Normal <0.10 [facility] Comment on above: Order Comment: Speci men Type: BLOOD SPECIMENOrdering Facility: [facility] Address: [address] [place] [address] Performed By: #### 5 7021-8 ####[facility] LABCLIA [id number] [place] [address] Immature granulocytes/100 WBC (Bld) 0.3 % Normal [facility] Comment on above: Order Comment: Speci men Type: BLOOD SPECIMENOrdering Facility: [facility] Address: [address] [place] [address] Performed By: #### 5 7021-8 ####[facility] LABCLIA [id number] [place] [address] Lymphocytes (Bld) [#/Vol] 1.62 10*3/uL Normal 1.00-4.00 [facility] Comment on above: Order Comment: Speci men Type: BLOOD SPECIMENOrdering Facility: [facility] Address: [address] [place] [address] Performed By: #### 5 7021-8 ####[facility] LABCLIA [id number] [place] [address] Lymphocytes/100 WBC (Bld) 17.3 % Normal [facility] Comment on above: Order Comment: Speci men Type: BLOOD SPECIMENOrdering Facility: [facility] Address: [address] [address] Performed By: #### 5 7021-8 ####[facility] LABCLIA [id number] [place] [address] MCH (RBC) [Entitic mass] 32.0 pg Normal 26.0-34.0 [facility] Comment on above: Order Comment: Speci men Type: BLOOD SPECIMENOrdering Facility: [facility] Address: [address] [place] [address] Performed By: #### 5 7021-8 ####[facility] LABCLIA [id number] [place] [address] MCHC (RBC) [Mass/Vol] 33.5 g/dL Normal 30.5-36.0 [facility] Comment on above: Order Comment: Speci men Type: BLOOD SPECIMENOrdering Facility: [facility] Address: [address] [place] [address] Performed By: #### 5 7021-8 ####[facility] LABIA [id number] [place] [address] MCV (RBC) [Entitic vol] 95.5 fL Normal 80.0-100.0 [facility] Comment on above: Order Comment: Speci men Type: BLOOD SPECIMENOrdering Facility: [facility] Address: [address] [place] [address] Performed By: #### 5 7021-8 ####[facility] LABIA [id number] [place] [address] Monocytes (Bld) [#/Vol] 0.99 10*3/uL High <0.87 [facility] Comment on above: Order Comment: Speci men Type: BLOOD SPECIMENOrdering Facility: [facility] Address: [address] [place] [address] Performed By: #### 5 7021-8 ####[facility] LABCLIA [id number] [place] [address] Monocytes/100 WBC (Bld) 10.6 % Normal [facility] Comment on above: Order Comment: Speci men Type: BLOOD SPECIMENOrdering Facility: [facility] Address: [address] [place] [address] Performed By: #### 5 7021-8 ####[facility] LABCLIA [id number] [place] [address] Neutrophils (Bld) [#/Vol] 6.50 10*3/uL Normal 1.45-7.50 [facility] Comment on above: Order Comment: Speci men Type: BLOOD SPECIMENOrdering Facility: [facility] Address: [address] [place] [address] Performed By: #### 5 7021-8 ####[facility] LABCLIA [id number] [place] [address] Neutrophils/100 WBC (Bld) 69.3 % Normal [facility] Comment on above: Order Comment: Speci men Type: BLOOD SPECIMENOrdering Facility: [facility] Address: [address] [place] [address] Performed By: #### 5 7021-8 ####[facility] LABCLIA [id number] [place] [address] Nucleated RBC (Bld) [#/Vol] 10*3/uL Normal <0.01 [facility] Comment on above: Order Comment: Speci men Type: BLOOD SPECIMENOrdering Facility: [facility] Address: [address] [place] [address] Performed By: #### 5 7021-8 ####[facility] LABCLIA [id number] [place] [address] Nucleated RBC/100 WBC (Bld) [Ratio] 0.0 /100 WBC Normal [facility] Comment on above: Order Comment: Speci men Type: BLOOD SPECIMENOrdering Facility: [facility] Address: [address] [place] [address] Performed By: #### 5 7021-8 ####[facility] LABCLIA [id number] [place] [address] Platelet mean volume (Bld) [Entitic vol] 11.9 fL Normal 9.0-12.7 [facility] Comment on above: Order Comment: Speci men Type: BLOOD SPECIMENOrdering Facility: [facility] Address: [address] [place] [address] Performed By: #### 5 7021-8 ####[facility] LABCLIA [id number] [place] [address] Platelets (Bld) [#/Vol] 252 10*3/uL Normal 150-400 [facility] Comment on above: Order Comment: Speci men Type: BLOOD SPECIMENOrdering Facility: [facility] Address: [address] [place] [address] Performed By: #### 5 7021-8 ####[facility] LABIA [id number] [place] [address] RBC (Bld) [#/Vol] 3.81 10*6/uL Low 3.90-5.20 [facility] Comment on above: Order Comment: Speci men Type: BLOOD SPECIMENOrdering Facility: [facility] Address: [address] [place] [address] Performed By: #### 5 7021-8 ####[facility] LABIA [id number] [place] [address] WBC (Bld) [#/Vol] 9.38 10*3/uL Normal 3.70-11.00 [facility] Comment on above: Order Comment: Speci men Type: BLOOD SPECIMENOrdering Facility: [facility] Address: [address] [place] [address] Performed By: #### 5 7021-8 ####[facility] LABIA [id number] [place] [address] Cancer Ag15-3 SerPl-aCncon 0 04-30-2023 Cancer Ag 15-3 Qn 9.9 U/mL Normal <26.0 [facility] Comment on above: Order Comment: Speci men Type: BLOOD SPECIMENOrdering Facility: [facility] Address: [address] [place] [address] Result Comment: The CA 15-3 test methodology used is the Electrochemiluminescence Immunoassay by [employer]. Results obtained with different methods or kits cannot be used interchangeably. Performed By: #### 6 875-9 ####[facility] LABCLIA [id number] [address] OF [facility] Cancer Ag27-29 SerPl-aCncon 04-30-2023 Cancer Ag 27-29 Qn 12.5 [arb'U]/mL Normal <38.6 [facility] Comment on above: Order Comment: Speci men Type: BLOOD SPECIMENOrdering Facility: [facility] Address: [address] [place] [address] Result Comment: The CA27.29 test was performed using the [employer] KwiClickaur XP chemiluminometric immunoassay method. Results obtained with different assay methods or kits cannot be used interchangeably. Performed By: #### 1 7842-6 ####[facility] LABCLIA [id number] [address] OF [facility] Comprehensive metabolic 2000 panelon 04-30-2023 Albumin [Mass/Vol] 4.3 g/dL Normal 3.9-4.9 [facility] Comment on above: Order Comment: Speci men Type: BLOOD SPECIMENOrdering Facility: [facility] Address: [address] [place] [address] Performed By: #### 2 4323-8 ####[facility] LABCLIA [id number] [place] [address] ALP [Catalytic activity/Vol] 93 U/L Normal 34-123 [facility] Comment on above: Order Comment: Speci men Type: BLOOD SPECIMENOrdering Facility: [facility] Address: [address] [address] Performed By: #### 2 4323-8 ####[facility] LABCLIA [id number] [place] [address] ALT [Catalytic activity/Vol] 14 U/L Normal 7-38 [facility] Comment on above: Order Comment: Speci men Type: BLOOD SPECIMENOrdering Facility: [facility] Address: [address] [address] Performed By: #### 2 4323-8 ####[facility] LABCLIA [id number] [place] [address] Anion gap [Moles/Vol] 14 mmol/L Normal 9-18 [facility] Comment on above: Order Comment: Speci men Type: BLOOD SPECIMENOrdering Facility: [facility] Address: [address] [address] Performed By: #### 2 4323-8 ####[facility] LABCLIA [id number] [place] [address] AST [Catalytic activity/Vol] 18 U/L Normal 13-35 [facility] Comment on above: Order Comment: Speci men Type: BLOOD SPECIMENOrdering Facility: [facility] Address: [address] [address] Performed By: #### 2 4323-8 ####[facility] LABCLIA [id number] [place] [address] Bilirubin [Mass/Vol] 0.3 mg/dL Normal 0.2-1.3 [facility] Comment on above: Order Comment: Speci men Type: BLOOD SPECIMENOrdering Facility: [facility] Address: [address] [address] Performed By: #### 2 4323-8 ####[facility] LABCLIA [id number] [place] [address] Calcium [Mass/Vol] 10.6 mg/dL High 8.5-10.2 [facility] Comment on above: Order Comment: Speci men Type: BLOOD SPECIMENOrdering Facility: [facility] Address: [address] [place] [address] Performed By: #### 2 4323-8 ####[facility] LABCLIA [id number] [place] [address] Chloride [Moles/Vol] 98 mmol/L Normal 97-105 [facility] Comment on above: Order Comment: Speci men Type: BLOOD SPECIMENOrdering Facility: [facility] Address: [address] [place] [address] Performed By: #### 2 4323-8 ####[facility] LABCLIA [id number] [place] [address] CO2 [Moles/Vol] 26 mmol/L Normal 22-30 [facility] Comment on above: Order Comment: Speci men Type: BLOOD SPECIMENOrdering Facility: [facility] Address: [address] [place] [address] Performed By: #### 2 4323-8 ####[facility] LABCLIA [id number] [place] [address] Creatinine [Mass/Vol] 1.38 mg/dL High 0.58-0.96 [facility] Comment on above: Order Comment: Speci men Type: BLOOD SPECIMENOrdering Facility: [facility] Address: [address] [place] [address] Performed By: #### 2 4323-8 ####[facility] LABCLIA [id number] [place] [address] ESTIMATED GLOMERULAR FILTRATION RATE 39 mL/min/1.73m??? Low >=60 [facility] Comment on above: Order Comment: Speci men Type: BLOOD SPECIMENOrdering Facility: [facility] Address: [address] [place] [address] Result Comment: Sugar mated Glomerular Filtration Rate [...] actual GFR. Performed By: #### 2 4323-8 ####[facility] LABCLIA [id number] [place] [address] Glucose [Mass/Vol] 207 mg/dL High 74-99 [facility] Comment on above: Order Comment: Speci men Type: BLOOD SPECIMENOrdering Facility: [facility] Address: [address] [place] [id number] Result Comment: The [place] Diabetes Association (ADA) provides guidance for cutoff [...] Standards of Medical Care in Diabetes 2016, [place] [employer]. Diabetes Care. 2016.39(Suppl 1). Performed By: #### 2 4323-8 ####[facility] LABCLIA [id number] [place] [address] Potassium [Moles/Vol] 3.7 mmol/L Normal 3.7-5.1 [facility] Comment on above: Order Comment: Anastacio bonilla Type: BLOOD SPECIMENOrdering Facility: [facility] Address: [address] [place] [address] Performed By: #### 2 4323-8 ####[facility] LABCLIA [id number] [place] [address] Protein [Mass/Vol] 6.9 g/dL Normal 6.3-8.0 [facility] Comment on above: Order Comment: Speci men Type: BLOOD SPECIMENOrdering Facility: [facility] Address: [address] [address] Performed By: #### 2 4323-8 ####[facility] LABCLIA [id number] [place] [address] Sodium [Moles/Vol] 138 mmol/L Normal 136-144 [facility] Comment on above: Order Comment: Speci men Type: BLOOD SPECIMENOrdering Facility: [facility] Address: [address] [place] [address] Performed By: #### 2 4323-8 ####[facility] LABCLIA [id number] [place] [address] Urea nitrogen [Mass/Vol] 39 mg/dL High 7-21 [facility] Comment on above: Order Comment: Speci men Type: BLOOD SPECIMENOrdering Facility: [facility] Address: [address] [place] [address] Performed By: #### 2 4323-8 ####[facility] LABCLIA [id number] [place] [address] PTH RELATED PEPTIDEon 2022 PTH RELATED PEPTIDE 3.9 pmol/L High 0.0-3.4 [facility] Comment on above: Order Comment: Speci men Type: BLOOD SPECIMENOrdering Facility: [facility] Address: [address] [place] [address] Result Comment: INTE RPRETIVE INFORMATION: Parathyroid Hormone-Related Peptide This test was developed and its performance characteristics determined by [employer] It has not been cleared or approved by the [place] Food and Drug Administration. This test was performed in a CLIA certified laboratory and is intended for clinical purposes. Performed By: [facility] [address] [place] [address] Garnett Machine Operator: Apolinar Fernandez MD, PhD CLIA Number: [id number] Performed By: #### P THPEP ####[facility] [id number] [address] [id number] CBC W Auto Differential pane l (Bld)on 04-29-2023 Basophils (Bld) [#/Vol] 0.05 10*3/uL Normal <0.11 [facility] Comment on above: Order Comment: Speci men Type: BLOOD SPECIMENOrdering Facility: [facility] Address: [address] [place] [address] Performed By: #### 5 7021-8 ####[facility] LABCLIA [id number] [place] [address] Basophils/100 WBC (Bld) 0.5 % Normal [facility] Comment on above: Order Comment: Speci men Type: BLOOD SPECIMENOrdering Facility: [facility] Address: [address] [place] [address] Performed By: #### 5 7021-8 ####[facility] LABCLIA [id number] [place] [address] Differential cell count method Nom (Bld) Auto Normal [facility] Comment on above: Order Comment: Speci men Type: BLOOD SPECIMENOrdering Facility: [facility] Address: [address] [place] [address] Performed By: #### 5 7021-8 ####[facility] LABCLIA [id number] [place] [address] Eosinophils (Bld) [#/Vol] 0.17 10*3/uL Normal <0.46 [facility] Comment on above: Order Comment: Speci men Type: BLOOD SPECIMENOrdering Facility: [facility] Address: [address] [place] [address] Performed By: #### 5 7021-8 ####[facility] LABCLIA [id number] [place] [address] Eosinophils/100 WBC (Bld) 1.6 % Normal [facility] Comment on above: Order Comment: Speci men Type: BLOOD SPECIMENOrdering Facility: [facility] Address: [address] [place] [address] Performed By: #### 5 7021-8 ####[facility] LABCLIA [id number] [place] [address] Erythrocyte distribution width (RBC) [Ratio] 12.7 % Normal 11.5-15.0 [facility] Comment on above: Order Comment: Speci men Type: BLOOD SPECIMENOrdering Facility: [facility] Address: [address] [place] [address] Performed By: #### 5 7021-8 ####[facility] LABCLIA [id number] [place] [address] Hematocrit (Bld) [Volume fraction] 40.7 % Normal 36.0-46.0 [facility] Comment on above: Order Comment: Speci men Type: BLOOD SPECIMENOrdering Facility: [facility] Address: [address] [place] [address] Performed By: #### 5 7021-8 ####[facility] LABCLIA [id number] [place] [address] Hemoglobin (Bld) [Mass/Vol] 13.4 g/dL Normal 11.5-15.5 [facility] Comment on above: Order Comment: Speci men Type: BLOOD SPECIMENOrdering Facility: [facility] Address: [address] [place] [address] Performed By: #### 5 7021-8 ####[facility] LABCLIA [id number] [place] [address] Immature granulocytes (Bld) [#/Vol] 10*3/uL Normal <0.10 [facility] Comment on above: Order Comment: Speci men Type: BLOOD SPECIMENOrdering Facility: [facility] Address: [address] [place] [address] Performed By: #### 5 7021-8 ####[facility] LABIA [id number] [place] [address] Immature granulocytes/100 WBC (Bld) 0.2 % Normal [facility] Comment on above: Order Comment: Speci men Type: BLOOD SPECIMENOrdering Facility: [facility] Address: [address] [place] [address] Performed By: #### 5 7021-8 ####[facility] LABCLIA [id number] [place] [address] Lymphocytes (Bld) [#/Vol] 1.80 10*3/uL Normal 1.00-4.00 [facility] Comment on above: Order Comment: Speci men Type: BLOOD SPECIMENOrdering Facility: [facility] Address: [address] [place] [address] Performed By: #### 5 7021-8 ####[facility] LABCLIA [id number] [place] [address] Lymphocytes/100 WBC (Bld) 16.9 % Normal [facility] Comment on above: Order Comment: Speci men Type: BLOOD SPECIMENOrdering Facility: [facility] Address: [address] [place] [address] Performed By: #### 5 7021-8 ####[facility] LABIA [id number] [place] [address] MCH (RBC) [Entitic mass] 31.2 pg Normal 26.0-34.0 [facility] Comment on above: Order Comment: Speci men Type: BLOOD SPECIMENOrdering Facility: [facility] Address: [address] [place] [address] Performed By: #### 5 7021-8 ####[facility] LABCLIA [id number] [place] [address] MCHC (RBC) [Mass/Vol] 32.9 g/dL Normal 30.5-36.0 [facility] Comment on above: Order Comment: Speci men Type: BLOOD SPECIMENOrdering Facility: [facility] Address: [address] [place] [address] Performed By: #### 5 7021-8 ####[facility] LABCLIA [id number] [place] [address] MCV (RBC) [Entitic vol] 94.7 fL Normal 80.0-100.0 [facility] Comment on above: Order Comment: Speci men Type: BLOOD SPECIMENOrdering Facility: [facility] Address: [address] [place] [address] Performed By: #### 5 7021-8 ####[facility] LABCLIA [id number] [place] [address] Monocytes (Bld) [#/Vol] 0.88 10*3/uL High <0.87 [facility] Comment on above: Order Comment: Speci men Type: BLOOD SPECIMENOrdering Facility: [facility] Address: [address] [place] [address] Performed By: #### 5 7021-8 ####[facility] LABCLIA [id number] [place] [address] Monocytes/100 WBC (Bld) 8.3 % Normal [facility] Comment on above: Order Comment: Speci men Type: BLOOD SPECIMENOrdering Facility: [facility] Address: [address] [place] [address] Performed By: #### 5 7021-8 ####[facility] LABCLIA [id number] [place] [address] Neutrophils (Bld) [#/Vol] 7.74 10*3/uL High 1.45-7.50 [facility] Comment on above: Order Comment: Speci men Type: BLOOD SPECIMENOrdering Facility: [facility] Address: [address] [place] [address] Performed By: #### 5 7021-8 ####[facility] LABCLIA [id number] [place] [address] Neutrophils/100 WBC (Bld) 72.5 % Normal [facility] Comment on above: Order Comment: Speci men Type: BLOOD SPECIMENOrdering Facility: [facility] Address: [address] [address] Performed By: #### 5 7021-8 ####[facility] LABCLIA [id number] [place] [address] Nucleated RBC (Bld) [#/Vol] 10*3/uL Normal <0.01 [facility] Comment on above: Order Comment: Speci men Type: BLOOD SPECIMENOrdering Facility: [facility] Address: [address] [address] Performed By: #### 5 7021-8 ####[facility] LABCLIA [id number] [place] [address] Nucleated RBC/100 WBC (Bld) [Ratio] 0.0 /100 WBC Normal [facility] Comment on above: Order Comment: Speci men Type: BLOOD SPECIMENOrdering Facility: [facility] Address: [address] [address] Performed By: #### 5 7021-8 ####[facility] LABCLIA [id number] [place] [address] Platelet mean volume (Bld) [Entitic vol] 10.7 fL Normal 9.0-12.7 [facility] Comment on above: Order Comment: Speci men Type: BLOOD SPECIMENOrdering Facility: [facility] Address: [address] [address] Performed By: #### 5 7021-8 ####[facility] LABCLIA [id number] [place] [address] Platelets (Bld) [#/Vol] 280 10*3/uL Normal 150-400 [facility] Comment on above: Order Comment: Speci men Type: BLOOD SPECIMENOrdering Facility: [facility] Address: [address] [address] Performed By: #### 5 7021-8 ####[facility] LABCLIA [id number] [place] [address] RBC (Bld) [#/Vol] 4.30 10*6/uL Normal 3.90-5.20 [facility] Comment on above: Order Comment: Speci men Type: BLOOD SPECIMENOrdering Facility: [facility] Address: [address] [place], [place] [id number] Performed By: #### 5 7021-8 ####[facility] LABCLIA [id number] [place] [address] WBC (Bld) [#/Vol] 10.66 10*3/uL Normal 3.70-11.00 [facility] Comment on above: Order Comment: Speci men Type: BLOOD SPECIMENOrdering Facility: [facility] Address: [address] [place] [address] Performed By: #### 5 7021-8 ####[facility] LABCLIA [id number] [place] [address] CNOVSPon 04-29-2023 CNOVSP Visit (SP) Office (H EMASA) -- ANDREW BARROS ([id number]) 1945 F Date Time Provider Department 04/29/23 3:15 PM SANDEEP LENZ During your visit today, we recorded the following information about you: Temperature Pulse Respiration Blood pressure 97 degrees 66/minute 16/minute 153/66 Weight Height 58.2 kg 1.626 m Sandeep Lenz MD 05/05/2023 6:04 PM Signed NAME: Andrew Barros [facility] NO.: [id number] DATE OF SERVICE: April 29, 2023 (Eduardo) [...] outer quadrant, invasive ductal carcinoma, ER postive, IN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 Mammograms at [facility] on 01/04/2021 Bi-Rads 2 benign. REVIEW OF [...] of recurring mass. ALLERGIES: ALLERGIES Allergen Reactions Eyjylrn-Lbq-Psl Red* Unknown Other reaction(s): AOF MEDICATIONS: doxazosin (CARDURA) 4 mg tablet Take 4 mg by mouth daily at bedtime. aspirin (ASPIR-81 ORAL) Take 81 mg by mo (more content not included)... Normal [facility] Comprehensive metabolic 2000 panelon 04-29-2023 Albumin [Mass/Vol] 4.4 g/dL Normal 3.9-4.9 [facility] Comment on above: Order Comment: Speci men Type: BLOOD SPECIMENOrdering Facility: [facility] Address: [address] [place] [address] Performed By: #### 2 4323-8 ####[facility] LABCLIA [id number] [place] [address] ALP [Catalytic activity/Vol] 98 U/L Normal 34-123 [facility] Comment on above: Order Comment: Speci men Type: BLOOD SPECIMENOrdering Facility: [facility] Address: [address] [address] Performed By: #### 2 4323-8 ####[facility] LABCLIA [id number] [place] [address] ALT [Catalytic activity/Vol] 15 U/L Normal 7-38 [facility] Comment on above: Order Comment: Speci men Type: BLOOD SPECIMENOrdering Facility: [facility] Address: [address] [place] [address] Performed By: #### 2 4323-8 ####[facility] LABCLIA [id number] [place] [address] Anion gap [Moles/Vol] 15 mmol/L Normal 9-18 [facility] Comment on above: Order Comment: Speci men Type: BLOOD SPECIMENOrdering Facility: [facility] Address: [address] [address] Performed By: #### 2 4323-8 ####[facility] LABCLIA [id number] [place] [address] AST [Catalytic activity/Vol] 20 U/L Normal 13-35 [facility] Comment on above: Order Comment: Speci men Type: BLOOD SPECIMENOrdering Facility: [facility] Address: [address] [address] Performed By: #### 2 4323-8 ####[facility] LABCLIA [id number] [place] [address] Bilirubin [Mass/Vol] 0.4 mg/dL Normal 0.2-1.3 [facility] Comment on above: Order Comment: Speci men Type: BLOOD SPECIMENOrdering Facility: [facility] Address: [address] [place] [address] Performed By: #### 2 4323-8 ####[facility] LABCLIA [id number] [place] [address] Calcium [Mass/Vol] 11.1 mg/dL High 8.5-10.2 [facility] Comment on above: Order Comment: Speci men Type: BLOOD SPECIMENOrdering Facility: [facility] Address: [address] [place] [address] Performed By: #### 2 4323-8 ####[facility] LABCLIA [id number] [place] [address] Chloride [Moles/Vol] 98 mmol/L Normal 97-105 [facility] Comment on above: Order Comment: Speci men Type: BLOOD SPECIMENOrdering Facility: [facility] Address: [address] [place] [address] Performed By: #### 2 4323-8 ####[facility] LABCLIA [id number] [place] [address] CO2 [Moles/Vol] 28 mmol/L Normal 22-30 [facility] Comment on above: Order Comment: Speci men Type: BLOOD SPECIMENOrdering Facility: [facility] Address: [address] [place] [address] Performed By: #### 2 4323-8 ####[facility] LABCLIA [id number] [place] [address] Creatinine [Mass/Vol] 1.49 mg/dL High 0.58-0.96 [facility] Comment on above: Order Comment: Speci men Type: BLOOD SPECIMENOrdering Facility: [facility] Address: [address] [place] [address] Performed By: #### 2 4323-8 ####[facility] LABCLIA [id number] [place] [address] ESTIMATED GLOMERULAR FILTRATION RATE 36 mL/min/1.73m??? Low >=60 [facility] Comment on above: Order Comment: Speci men Type: BLOOD SPECIMENOrdering Facility: [facility] Address: [address] [address] Result Comment: Sugar mated Glomerular Filtration Rate [...] actual GFR. Performed By: #### 2 4323-8 ####[facility] LABCLIA [id number] [place] [address] Glucose [Mass/Vol] 135 mg/dL High 74-99 [facility] Comment on above: Order Comment: Speci men Type: BLOOD SPECIMENOrdering Facility: [facility] Address: [address] [place] [address] Result Comment: The [place] Diabetes Association (ADA) provides guidance for cutoff [...] Standards of Medical Care in Diabetes 2016, [place] [employer]. Diabetes Care. 2016.39(Suppl 1). Performed By: #### 2 4323-8 ####[facility] LABCLIA [id number] [place] [address] Potassium [Moles/Vol] 3.9 mmol/L Normal 3.7-5.1 [facility] Comment on above: Order Comment: Speci men Type: BLOOD SPECIMENOrdering Facility: [facility] Address: [address] [place] [address] Performed By: #### 2 4323-8 ####[facility] LABCLIA [id number] [place] [address] Protein [Mass/Vol] 7.4 g/dL Normal 6.3-8.0 [facility] Comment on above: Order Comment: Speci men Type: BLOOD SPECIMENOrdering Facility: [facility] Address: [address] [place] [address] Performed By: #### 2 4323-8 ####[facility] LABCLIA [id number] [place] [address] Sodium [Moles/Vol] 141 mmol/L Normal 136-144 [facility] Comment on above: Order Comment: Speci men Type: BLOOD SPECIMENOrdering Facility: [facility] Address: [address] [place] [address] Performed By: #### 2 4323-8 ####[facility] LABCLIA [id number] [place] [address] Urea nitrogen [Mass/Vol] 38 mg/dL High 7-21 [facility] Comment on above: Order Comment: Speci men Type: BLOOD SPECIMENOrdering Facility: [facility] Address: [address] [place] [address] Performed By: #### 2 4323-8 ####[facility] LABCLIA [id number] [place] [address] Office Visiton 04-01-2023 Follow-up visit [id number] Barros,Wayne barrientosdomenica Lazara 1945 F Date Provider Department Center 04/01/2023 [facility]LL [facility] Family History Problem Relation Age of Onset Coronary artery disease Mother Coronary artery disease Father Coronary artery disease Sister Coronary artery disease Brother Family Status - Relation Status Age at Mother Father Sister Brother Level of Service:58895 IN OFFICE/OUTPATIENT ESTABLISHED MOD MDM 30-39 MIN Reason for Visit and Comments: Atrial Fibrillation [80] Hypertension [022587] [facility] 36on 03-27-2023 36 Called and discussed . Thanks. [facility] Office Visiton 01-14-2023 Follow-up visit [id number] Wayne Barros A 1945 F Date Provider Department Center 01/14/2023 [id number]-WETDUQLXHDAYO RODRÍGUEZ KASHIF [facility] Family History Problem Relation Age of Onset Coronary artery disease Mother Coronary artery disease Father Coronary artery disease Sister Coronary artery disease Brother Family Status - Relation Status Age at Mother Father Sister Brother Level of Service:52657 IN OFFICE/OUTPATIENT ESTABLISHED MOD MDM 30-39 MIN Reason for Visit and Comments: Atrial Fibrillation [80] Congestive Heart Failure [127] Hypertension [719635] Valve Disorder [3372] [facility] Office Visiton 09-03-2022 Follow-up visit [id number] Wayne Barros A 1945 F Date Provider Department Center 09/03/2022 RAHEEL LEÓN KASHIF [facility] Family History Problem Relation Age of Onset Coronary artery disease Mother Coronary artery disease Father Coronary artery disease Sister Coronary artery disease Brother Family Status - Relation Status Age at Mother Father Sister Brother Level of Service:21568 IN OFFICE/OUTPATIENT ESTABLISHED MOD MDM 30-39 MIN Reason for Visit and Comments: Hospital Follow-up [832] [facility] BNPon 08-24-2022 Natriuretic peptide B (Bld) [Mass/Vol] 1296.0 pg/mL Normal <=1,800.0 [facility] Comment on above: Performed By: #### B ANODE MACHINE OPERATOR, CMP ####[facility] [id number] [id number] Reis CBC W MANUAL DIFFon 08-24-20 22 ATYPICAL LYMPH # Normal [facility] Comment on above: Performed By: #### C BCMAN ####[facility] Urgxkbvscs[address] [place] [id number]. Swathi Reis ATYPICAL LYMPH % Normal The [facility] Comment on above: Performed By: #### C BCMAN ####[facility] Hgsswdjkci[address] [place] [address]Dr. Yitracy Reis BAND # 0.1 103/ul Normal 0.0-0.3 [facility] Comment on above: Performed By: #### C BCMAN ####[facility] Rtethwahcw[address] [place] [address]Dr. Yilan Reis BAND % 1 % Normal 0-5 [facility] Comment on above: Performed By: #### C BCMAN ####[facility] Jxhvbxldji9[address] [place] [address]Dr. Swathi Reis BASOM # 0.00 103/ul Normal 0.00-0.10 [facility] Comment on above: Performed By: #### C BCYUN ####[facility] Wgfuuvzrhn[address] [place], [place] [address]Dr. Swathi Reis BASOM % 0.0 % Critically low 0.2-2.0 The [facility] Comment on above: Performed By: #### C BCYUN ####[facility] Rqpiqldguc7[address] [place] [address]Dr. Yitracy Reis BLAST # Normal [facility] Comment on above: Performed By: #### C NGA ####[facility] Tknjaneagc[address] [place] [address]Dr. Swathi Reis BLAST % Normal [facility] Comment on above: Performed By: #### C BCYUN ####[facility] Hrlwwwczex45[address] [place] [address]Dr. Swathi Reis CORRECTED WBC Normal 4.0-11.0 The [facility] Comment on above: Performed By: #### C BCMAN ####[facility] Htgmgedtpo[address] [place], [place] [address]Dr. Swathi Reis EOS # 0.39 103/ul Normal 0.00-0.70 [facility] Comment on above: Performed By: #### C BCYUN ####[facility] Qwqfurullk[address] [place], [place] [address]Dr. Swathi Reis EOS% 3.0 % Normal 0.9-7.0 [facility] Comment on above: Performed By: #### C NGA ####[facility] Iyejfjizrq045[address] [place] [id number]. Swathi Reis HCT 32.6 % Critically low 36.0-48.0 The [facility] Comment on above: Performed By: #### C NGA ####[facility] Yjkhtzxvfd5713 [place] [address]Dr. Swathi Reis HGB 10.6 g/dl Critically low 12.0-16.0 The [facility] Comment on above: Performed By: #### C NGA ####[facility] Iwbdcknyxu07[address] [place] [address]Dr. Swathi Reis HYPOCHROMASIA SLIGHT Normal The [facility] Comment on above: Performed By: #### C NGA ####[facility] Kbzanmntwh[address] [place] [address]Dr. Swathi Reis LYMPHM # 1.04 103/ul Critically low 1.20-3.80 The [facility] Comment on above: Performed By: #### C NGA ####[facility] Wwczcpqlbr0457 [place] [address]Dr. Swathi Reis LYMPHM% 8.0 % Critically low 20.5-60.0 The [facility] Comment on above: Performed By: #### C NGA ####[facility] Eikuffcqro32[address] [place] [id number]. Swathi Reis MCH 29.2 pg Normal 26.7-34.0 [facility] Comment on above: Performed By: #### C NGA ####[facility] Qxpwatobpu7931 [place] [address]Dr. Swathi Reis MCHC 32.5 g/dl Normal 29.9-35.2 [facility] Comment on above: Performed By: #### C NGA ####[facility] Aqhvntqnev2841 [place] [address]Dr. Swathi Reis MCV 89.8 fL Normal 81.0-99.0 The [facility] Comment on above: Performed By: #### C NGA ####[facility] Idfoehuljv2162 [place] [address]Dr. Swathi Reis METAMYELOCYTE # Normal The [facility] Comment on above: Performed By: #### C NGA ####[facility] Uqgfepriga1999 [place] [id number]. Swathi Reis METAMYELOCYTE % Normal The [facility] Comment on above: Performed By: #### C NGA ####[facility] Jpiqztbtnq7023 [place] [address]Dr. Swathi Reis MONOM# 1.17 103/ul Critically high 0.30-0.80 [facility] Comment on above: Performed By: #### C NGA ####[facility] Bmrogwcglg[address] [place], [place] [address]Dr. Swathi Reis MONOM% 9.0 % Normal 1.7-12.0 [facility] Comment on above: Performed By: #### C NGA ####[facility] Vqahqznnrz[address] [place], [place] [address]Dr. Swathi Chato MPV 10.0 fL Normal 9.5-13.5 [facility] Comment on above: Performed By: #### C NGA ####[facility] Bqxrzbmkzf[address] [place], [place] [address]Dr. Swathi Reis MYELOCYTE # Normal [facility] Comment on above: Performed By: #### C NGA ####[facility] Voxcegyore8[address] [place], [place] [address]Dr. Swathi Reis MYELOCYTE % Normal [facility] Comment on above: Performed By: #### C NGA ####[facility] Adwdajjypb[address] [place], [place] [address]Dr. Swathi Reis NRBC Normal [facility] Comment on above: Performed By: #### C NGA ####[facility] Reqdqzzglt4276 [place] [address]Dr. Swathi Reis PLT 353 103/ul Normal 150-450 [facility] Comment on above: Performed By: #### C NGA ####[facility] Lxiudixnpm6348 [place], [place] [address]Ca. Swathi Reis RBC 3.63 106/ul Critically low 4.20-5.40 [facility] Comment on above: Performed By: #### C NGA ####[facility] Irvdcyxonv3700 [place], [place] [address]Tj. Swathi Reis RDW 13.6 % Normal 11.0-15.0 [facility] Comment on above: Performed By: #### C NGA ####[facility] Wsmtffwcij0326 [place], [place] [address]Do. Swathi Reis SEG # 10.27 103/ul Critically high 1.40-6.50 [facility] Comment on above: Performed By: #### C NGA ####[facility] Wvftzqdycr6598 [place] [id number]. Swathi Reis SEG % 79.0 % Critically high 43.0-75.0 [facility] Comment on above: Performed By: #### C NGA ####[facility] Vmrxdxrhlx8466 [place], [place] [address]Qo. Swathi Reis WBC 13.0 103/ul Critically high 4.0-11.0 [facility] Comment on above: Performed By: #### C NGA ####[facility] Yeenrlaqjp8147 [place] [phone]. Swathi Chato DIGOXINon 08-24-2022 DIG 1.8 ng/mL Normal 0.9-2.0 [facility] Comment on above: Performed By: #### D IG ####[facility] Ldeopradpy7322 [place] [phone]. Swathi Reis PROF 14(COMP METB)on 022 Albumin [Mass/Vol] 2.4 g/dL Critically low 3.4-5.0 Th [facility] Comment on above: Performed By: #### B ANODE MACHINE OPERATOR, CMP ####[facility] Yawjrucmmx8331 [place] [phone]. Swathi Chato Albumin/Globulin [Mass ratio] 0.5 {ratio} Normal [facility] Comment on above: Performed By: #### B ANODE MACHINE OPERATOR, CMP ####[facility] Kynvmpkzqt0359 [place] [phone]. Swathi Reis ALP [Catalytic activity/Vol] 93 U/L Normal 46-116 [facility] Comment on above: Performed By: #### B ANODE MACHINE OPERATOR, CMP ####[facility] Yjdcrwbasj7309 [place] [phone]. Swathi Reis ALT [Catalytic activity/Vol] 8 U/L Critically low 14-59 [facility] Comment on above: Performed By: #### B ANODE MACHINE OPERATOR, CMP ####[facility] Zvjssefobu1431 [place] [phone]. Swathi Reis Anion gap [Moles/Vol] 11.2 mmol/L Normal [facility] Comment on above: Performed By: #### B ANODE MACHINE OPERATOR, CMP ####[facility] Hozweuyzli[address] [place], [place] [address]Dr. Swathi Reis AST [Catalytic activity/Vol] 14 U/L Critically low 15-37 [facility] Comment on above: Performed By: #### B ANODE MACHINE OPERATOR, CMP ####[facility] Hmrmdzdezg2192 [place] [phone]. Swathi Chato Bilirubin [Mass/Vol] 0.4 mg/dL Normal 0.2-1.0 [facility] Comment on above: Performed By: #### B ANODE MACHINE OPERATOR, CMP ####[facility] Tpesmpfnxf0597 [place] [address]Dr. Swathi Chato Calcium [Mass/Vol] 9.4 mg/dL Normal 8.5-10.1 [facility] Comment on above: Performed By: #### B ANODE MACHINE OPERATOR, CMP ####[facility] Scbjjfxghy5364 [place] [phone]. Swathi Reis Chloride [Moles/Vol] 101 mmol/L Normal 98-107 [facility] Comment on above: Performed By: #### B ANODE MACHINE OPERATOR, CMP ####[facility] Hzyahrdbvu5[address] [place] [address]Dr. Swathi Reis CO2 [Moles/Vol] 31.0 mmol/L Normal 21.0-32.0 [facility] Comment on above: Performed By: #### B ANODE MACHINE OPERATOR, CMP ####[facility] Dwxarrtpof8401 [place] [address]Dr. Swathi Reis Creatinine [Mass/Vol] 1.49 mg/dL Critically high 0.55-1.02 [facility] Comment on above: Performed By: #### B ANODE MACHINE OPERATOR, CMP ####[facility] Aermobbmqb0115 [place] [address]Dr. Swathi Reis EGFR-AF ANGOLAN 41 mL/min/1.73m2 Critically low >=60 [facility] Comment on above: Performed By: #### B ANODE MACHINE OPERATOR, CMP ####[facility] [address]vjyuhph[address] [place], [place] [address]Dr. Swathi Reis EGFR-NON AF ANGOLAN 34 mL/min/1.73m2 Critically low >=60 [facility] Comment on above: Performed By: #### B ANODE MACHINE OPERATOR, CMP ####[facility] Kccgkcmnfv[address] [place], [place] [address]Dr. Swathi Reis Globulin (S) [Mass/Vol] 4.8 g/dL Normal [facility] Comment on above: Performed By: #### B ANODE MACHINE OPERATOR, CMP ####[facility] Ymqrlrhdcf[address] [place], [place] [address]Dr. Swathi Reis Glucose [Mass/Vol] 153 mg/dL Critically high 74-106 [facility] Comment on above: Performed By: #### B ANODE MACHINE OPERATOR, CMP ####[facility] Eisnmrsnyi19[address] [place], [place] [address]Dr. Swathi Reis Potassium [Moles/Vol] 4.2 mmol/L Normal 3.5-5.1 [facility] Comment on above: Performed By: #### B ANODE MACHINE OPERATOR, CMP ####[facility] Rmexpnweob67[address] [place], [place] [address]Dr. Swathi Reis Protein [Mass/Vol] 7.2 g/dL Normal 6.4-8.2 [facility] Comment on above: Performed By: #### B ANODE MACHINE OPERATOR, CMP ####[facility] Cmcawlfuzr[address] [place], [place] [address]Dr. Swathi Reis Sodium [Moles/Vol] 139 mmol/L Normal 136-145 The [facility] Comment on above: Performed By: #### B ANODE MACHINE OPERATOR, CMP ####[facility] Gvskzvejqf7[address] [place], [place] [address]Dr. Swathi Reis Urea nitrogen [Mass/Vol] 22.0 mg/dL Critically high 7.0-18.0 [facility] Comment on above: Performed By: #### B ANODE MACHINE OPERATOR, CMP ####[facility] Wjudghdcsi5[address] [place], [place] [address]Dr. Swathi Reis Urea nitrogen/Creatinine [Mass ratio] 14.8 mg/mg Normal [facility] Comment on above: Performed By: #### B ANODE MACHINE OPERATOR, CMP ####[facility] Pzeowlagos[address] [place], [place] [address]Dr. Swathi Reis BNPon 08-23-2022 Natriuretic peptide B (Bld) [Mass/Vol] 1755.0 pg/mL Normal <=1,800.0 [facility] Comment on above: Performed By: #### B ANODE MACHINE OPERATOR, CMP ####[facility] Dgrbmrygwp7[address] [place], [place] [address]Dr. Swathi Reis CBC AUTO DIFFon 08-23-2022 BASO # 0.1 103/ul Normal 0.0-0.1 [facility] Comment on above: Performed By: #### C BC ####[facility] Vvexlswwiw98[address] [place], [place] [address]Dr. Swathi Chato Basophils/100 WBC (Bld) 0.7 % Normal 0.2-2.0 [facility] Comment on above: Performed By: #### C BC ####[facility] Afmzmamczh[address] [place], [place] [address]Dr. Swathi Chato EO # 0.2 103/ul Normal 0.0-0.7 [facility] Comment on above: Performed By: #### C BC ####[facility] Yrlnksumst617[address] [place], [place] [address]Dr. Swathi Chato Eosinophils/100 WBC (Bld) 2.2 % Normal 0.9-7.0 [facility] Comment on above: Performed By: #### C BC ####[facility] Fxzjmlanyt6809 [place] [address]Dr. Swathi Reis Erythrocyte distribution width (RBC) [Ratio] 13.6 % Normal 11.0-15.0 [facility] Comment on above: Performed By: #### C BC ####[facility] Swjizdghjv5893 [place] [address]Dr. Swathi Reis Hematocrit (Bld) [Volume fraction] 33.1 % Critically low 36.0-48.0 [facility] Comment on above: Performed By: #### C BC ####[facility] [address]pikjtqvjr[address] [place], [place] [address]Dr. Swathi Reis Hemoglobin (Bld) [Mass/Vol] 10.6 g/dL Critically low 12.0-16.0 [facility] Comment on above: Performed By: #### C BC ####[facility] Shuursknbg7[address] [place], [place] [address]Dr. Swathi Reis IG # 0.12 10e3/ul Critically high 0.00-0.03 [facility] Comment on above: Performed By: #### C BC ####[facility] Fguqjggtki[address] [place], [place] [address]Dr. Swathi Reis IG % 1.1 % Critically high 0.0-0.5 [facility] Comment on above: Performed By: #### C BC ####[facility] Oqnhsityxc257[address] [place], [place] [address]Dr. Swathi Reis LYMPH # 1.6 103/ul Normal 1.2-3.8 [facility] Comment on above: Performed By: #### C BC ####[facility] Zxyidlqasc5[address] [place], [place] [address]Dr. Swathi Reis Lymphocytes/100 WBC (Bld) 14.6 % Critically low 20.5-60.0 [facility] Comment on above: Performed By: #### C BC ####[facility] Krovtsglpg37[address] [place], [place] [address]Dr. Swathi Reis MANUAL DIFF REQ NO Normal [facility] Comment on above: Performed By: #### C BC ####[facility] Eugpcpxreq6050 [place] [id number]. Swathi Reis MCH (RBC) [Entitic mass] 29.0 pg Normal 26.7-34.0 [facility] Comment on above: Performed By: #### C BC ####[facility] Jzwhcenfby1946 [place] [address]Dr. Swathi Reis MCHC (RBC) [Mass/Vol] 32.0 g/dL Normal 29.9-35.2 [facility] Comment on above: Performed By: #### C BC ####[facility] Rlafncmeie7778 [place] [address]Dr. Swathi Chato MCV (RBC) [Entitic vol] 90.4 fL Normal 81.0-99.0 [facility] Comment on above: Performed By: #### C BC ####[facility] Jjyfxrhxzi[address] [place], [place] [address]DrOtto Wylietracy Chato MONO # 1.4 103/ul Critically high 0.3-0.8 [facility] Comment on above: Performed By: #### C BC ####[facility] Lmnrwzcijl[address] [place], [place] [address]DrOtto Swathi Chato Monocytes/100 WBC (Bld) 12.8 % Critically high 1.7-12.0 [facility] Comment on above: Performed By: #### C BC ####[facility] Efxwzirith[address] [place], [place] [address]DrOtto Swathi Reis NEUT # 7.5 103/ul Critically high 1.4-6.5 The [facility] Comment on above: Performed By: #### C BC ####[facility] Tnsfqdllmk4[address] [place], [place] [address]DrOtto Swathi Chato Neutrophils/100 WBC (Bld) 68.6 % Normal 43.0-75.0 [facility] Comment on above: Performed By: #### C BC ####[facility] Rm[address]rusuzd[address] [place], [place] [id number] Inessatracy Reis Platelet mean volume (Bld) [Entitic vol] 10.3 fL Normal 9.5-13.5 [facility] Comment on above: Performed By: #### C BC ####[facility] Zdfkhdbqcs8551 [place] [id number]. Swathi Reis PLT 387 103/ul Normal 150-450 [facility] Comment on above: Performed By: #### C BC ####[facility] Zorahqfomj3972 [place] [address]Dr. Swathi Reis RBC 3.66 106/ul Critically low 4.20-5.40 [facility] Comment on above: Performed By: #### C BC ####[facility] Yqsalpdghg4434 [place] [address]Dr. Swathi Reis WBC 11.0 103/ul Normal 4.0-11.0 [facility] Comment on above: Performed By: #### C BC ####[facility] Laaqhxuxyb3220 [place] [address]Dr. Swathi Chato DIGOXINon 08-23-2022 DIG 1.6 ng/mL Normal 0.9-2.0 [facility] Comment on above: Performed By: #### D IG ####[facility] Uwvofmqoxr7851 [place] [address]Dr. Swathi Reis POINT OF CARE GLUCOSEon Glucose [Mass/Vol] 167 mg/dL Critically high 74-106 [facility] Comment on above: Performed By: #### P OCGLUC ####[facility] Lkyuztqofl2499 [place] [address]Dr. Swathi Chato Glucose [Mass/Vol] 114 mg/dL Critically high 74-106 [facility] Comment on above: Performed By: #### P OCGLUC ####[facility] Krsrahutsp5507 [place] [address]Dr. Swathi Chato Glucose [Mass/Vol] 272 mg/dL Critically high 74-106 [facility] Comment on above: Performed By: #### P OCGLUC ####[facility] Vcorwgstng8130 [place] [address]DrOtto Reis PROF 14(COMP METB)on 022 Albumin [Mass/Vol] 2.4 g/dL Critically low 3.4-5.0 [facility] Comment on above: Performed By: #### B ANODE MACHINE OPERATOR, CMP ####[facility] Bazcnizcii6492 [place] [address]Dr. Swathi Reis Albumin/Globulin [Mass ratio] 0.5 {ratio} Normal [facility] Comment on above: Performed By: #### B ANODE MACHINE OPERATOR, CMP ####[facility] Zsdhzhcwua9470 [place] [address]Dr. Swathi Reis ALP [Catalytic activity/Vol] 104 U/L Normal 46-116 [facility] Comment on above: Performed By: #### B ANODE MACHINE OPERATOR, CMP ####[facility] Ivbgxgikas2087 [place] [address]Dr. Swathi Reis ALT [Catalytic activity/Vol] 7 U/L Critically low 14-59 [facility] Comment on above: Performed By: #### B ANODE MACHINE OPERATOR, CMP ####[facility] Hhrynoeiuj0862 [place] [address]Dr. Swathi Reis Anion gap [Moles/Vol] 11.1 mmol/L Normal [facility] Comment on above: Performed By: #### B ANODE MACHINE OPERATOR, CMP ####[facility] Syseihmsxg[address] [place], [place] [address]Dr. Swathi Reis AST [Catalytic activity/Vol] 19 U/L Normal 15-37 [facility] Comment on above: Performed By: #### B ANODE MACHINE OPERATOR, CMP ####[facility] Avlyigxyun3844 [place] [address]Dr. Swathi Reis Bilirubin [Mass/Vol] 0.4 mg/dL Normal 0.2-1.0 [facility] Comment on above: Performed By: #### B ANODE MACHINE OPERATOR, CMP ####[facility] Wubnyxirjb66[address] [place], [place] [address]Dr. Swathi Reis Calcium [Mass/Vol] 9.5 mg/dL Normal 8.5-10.1 [facility] Comment on above: Performed By: #### B ANODE MACHINE OPERATOR, CMP ####[facility] Powdbuzssk[address] [place], [place] [address]Dr. Swathi Reis Chloride [Moles/Vol] 101 mmol/L Normal 98-107 [facility] Comment on above: Performed By: #### B ANODE MACHINE OPERATOR, CMP ####[facility] Oqbdabuztk[address] [place], [place] [address]Dr. Swathi Reis CO2 [Moles/Vol] 30.7 mmol/L Normal 21.0-32.0 The [facility] Comment on above: Performed By: #### B ANODE MACHINE OPERATOR, CMP ####[facility] Befpmhvxwm54[address] [place], [place] [address]Dr. Swathi Reis Creatinine [Mass/Vol] 1.53 mg/dL Critically high 0.55-1.02 [facility] Comment on above: Performed By: #### B ANODE MACHINE OPERATOR, CMP ####[facility] Hqrktyqgxw406[address] [place], [place] [address]Dr. Swathi Reis EGFR-AF ANGOLAN 40 mL/min/1.73m2 Critically low >=60 [facility] Comment on above: Performed By: #### B ANODE MACHINE OPERATOR, CMP ####[facility] Inhigezfhd38[address] [place], [place] [address]Dr. Swathi Reis EGFR-NON AF ANGOLAN 33 mL/min/1.73m2 Critically low >=60 [facility] Comment on above: Performed By: #### B ANODE MACHINE OPERATOR, CMP ####[facility] Oifljwbhoq09[address] [place], [place] [address]Dr. Swathi Reis Globulin (S) [Mass/Vol] 4.9 g/dL Normal [facility] Comment on above: Performed By: #### B ANODE MACHINE OPERATOR, CMP ####[facility] Wstbeqcgdd28[address] [place], [place] [address]Dr. Swathi Reis Glucose [Mass/Vol] 139 mg/dL Critically high 74-106 [facility] Comment on above: Performed By: #### B ANODE MACHINE OPERATOR, CMP ####[facility] Kbpammkygi03[address] [place], [place] [address]Dr. Swathi Reis Potassium [Moles/Vol] 3.8 mmol/L Normal 3.5-5.1 [facility] Comment on above: Performed By: #### B ANODE MACHINE OPERATOR, CMP ####[facility] Vuicsytmky14[address] [place], [place] [address]Dr. Swathi Reis Protein [Mass/Vol] 7.3 g/dL Normal 6.4-8.2 The [facility] Comment on above: Performed By: #### B ANODE MACHINE OPERATOR, CMP ####[facility] Izgmeryfwm337[address] [place], [place] [address]Dr. Swathi Reis Sodium [Moles/Vol] 139 mmol/L Normal 136-145 [facility] Comment on above: Performed By: #### B ANODE MACHINE OPERATOR, CMP ####[facility] Lzftpqxwxs414[address] [place], [place] [address]Dr. Swathi Chato Urea nitrogen [Mass/Vol] 26.0 mg/dL Critically high 7.0-18.0 [facility] Comment on above: Performed By: #### B ANODE MACHINE OPERATOR, CMP ####[facility] Jsovtvujtp888[address] [place], [place] [address]Dr. Inessatracy Reis Urea nitrogen/Creatinine [Mass ratio] 17.0 mg/mg Normal [facility] Comment on above: Performed By: #### B ANODE MACHINE OPERATOR, CMP ####[facility] Itfrflkxrp37[address] [place], [place] [address]Dr. Swathi Chato BNPon 08-22-2022 Natriuretic peptide B (Bld) [Mass/Vol] 3439.0 pg/mL Critically high <=1,800.0 [facility] Comment on above: Performed By: #### C MP, BNP ####[facility] Eibamhwaqh[address] [place], [place] [address]Dr. Swathi Chato CBC AUTO DIFFon 08-22-2022 BASO # 0.1 103/ul Normal 0.0-0.1 [facility] Comment on above: Performed By: #### C BC ####[facility] Xwcpmjvbuk[address] [place], [place] [address]Dr. Swathi Chato Basophils/100 WBC (Bld) 0.6 % Normal 0.2-2.0 [facility] Comment on above: Performed By: #### C BC ####[facility] Emnlpodiym5[address] [place], [place] [address]Dr. Swathi Reis EO # 0.3 103/ul Normal 0.0-0.7 [facility] Comment on above: Performed By: #### C BC ####[facility] Uydheipuxj8[address] [place] [address]Dr. Swathi Reis Eosinophils/100 WBC (Bld) 2.1 % Normal 0.9-7.0 [facility] Comment on above: Performed By: #### C BC ####[facility] Wsoiveelhd37[address] [place], [place] [address]Dr. Swathi Reis Erythrocyte distribution width (RBC) [Ratio] 13.8 % Normal 11.0-15.0 [facility] Comment on above: Performed By: #### C BC ####[facility] Ouzrrlmbrg[address] [place], [place] [address]Dr. Swathi Reis Hematocrit (Bld) [Volume fraction] 31.9 % Critically low 36.0-48.0 [facility] Comment on above: Performed By: #### C BC ####[facility] E[address]vmlbrbb74[address] [place], [place] [address]Dr. Swathi Reis Hemoglobin (Bld) [Mass/Vol] 10.2 g/dL Critically low 12.0-16.0 [facility] Comment on above: Performed By: #### C BC ####[facility] Eokiwcavwx[address] [place], [place] [address]Dr. Swathi Reis IG # 0.10 10e3/ul Critically high 0.00-0.03 The [facility] Comment on above: Performed By: #### C BC ####[facility] Fatuotplix[address] [place], [place] [address]Dr. Swathi Reis IG % 0.8 % Critically high 0.0-0.5 [facility] Comment on above: Performed By: #### C BC ####[facility] Weuhvxfygf[address] [place], [place] [address]Dr. Swathi Reis LYMPH # 1.2 103/ul Normal 1.2-3.8 [facility] Comment on above: Performed By: #### C BC ####[facility] Xdgndlulnr[address] [place], [place] [address]Dr. Swathi Reis Lymphocytes/100 WBC (Bld) 9.6 % Critically low 20.5-60.0 [facility] Comment on above: Performed By: #### C BC ####[facility] [facility] [address] [place] [address]DrOtto Reis MANUAL DIFF REQ NO Normal [facility] Comment on above: Performed By: #### C BC ####[facility] F[address]zmfmrvk[address] [place] [address]Dr. Swathi Reis MCH (RBC) [Entitic mass] 28.7 pg Normal 26.7-34.0 [facility] Comment on above: Performed By: #### C BC ####[facility] Olqxmfzpgo[address] [place], [place] [address]Dr. Swathi Reis MCHC (RBC) [Mass/Vol] 32.0 g/dL Normal 29.9-35.2 [facility] Comment on above: Performed By: #### C BC ####[facility] Adgarykbeu[address] [place], [place] [address]DrOtto Reis MCV (RBC) [Entitic vol] 89.9 fL Normal 81.0-99.0 [facility] Comment on above: Performed By: #### C BC ####[facility] Dxuhtzzduc[address] [place], [place] [address]Dr. Swathi Reis MONO # 1.0 103/ul Critically high 0.3-0.8 [facility] Comment on above: Performed By: #### C BC ####[facility] Btgpxnvrmj[address] [place], [place] [address]DrOtto Reis Monocytes/100 WBC (Bld) 8.5 % Normal 1.7-12.0 [facility] Comment on above: Performed By: #### C BC ####[facility] Obytuwv[address] [place], [place] [address]DrOtto Reis NEUT # 9.6 103/ul Critically high 1.4-6.5 [facility] Comment on above: Performed By: #### C BC ####[facility] Ltmglgepao98[address] [place], [place] [address]Dr. Swathi Reis Neutrophils/100 WBC (Bld) 78.4 % Critically high 43.0-75.0 [facility] Comment on above: Performed By: #### C BC ####[facility] [address]kodth[address] [place] [address]Dr. Swathi Reis Platelet mean volume (Bld) [Entitic vol] 10.4 fL Normal 9.5-13.5 [facility] Comment on above: Performed By: #### C BC ####[facility] Vbmhapidem[address] [place] [address]Dr. Swathi Reis PLT 338 103/ul Normal 150-450 [facility] Comment on above: Performed By: #### C BC ####[facility] Loauduxuup[address] [place] [address]Dr. Swathi Reis RBC 3.55 106/ul Critically low 4.20-5.40 [facility] Comment on above: Performed By: #### C BC ####[facility] Pcllclibtl[address] [place], [place] [address]Dr. Swathi Reis WBC 12.2 103/ul Critically high 4.0-11.0 [facility] Comment on above: Performed By: #### C BC ####[facility] Tdmkszggke718[address] [place], [place] [address]Dr. Swathi Reis DIGOXINon 08-22-2021 DIG 1.5 ng/mL Normal 0.9-2.0 [facility] Comment on above: Performed By: #### D IG ####[facility] Lqaxoxqdlt898[address] [place], [place] [address]Dr. Swathi Reis POINT OF CARE GLUCOSEon 07-26-2021 Glucose [Mass/Vol] 222 mg/dL Critically high 74-106 [facility] Comment on above: Performed By: #### P OCGLUC ####[facility] Eywevhedlb85[address] [place], [place] [address]Dr. Swathi Reis Glucose [Mass/Vol] 133 mg/dL Critically high 74-106 [facility] Comment on above: Performed By: #### P OCGLUC ####[facility] Bidefoakyd[address] [place] [address]Dr. Swathi Reis Glucose [Mass/Vol] 299 mg/dL Critically high 74-106 [facility] Comment on above: Performed By: #### P OCGLUC ####[facility] Rbsyizojde76[address] [place], [place] [address]Dr. Swathi Reis Glucose [Mass/Vol] 151 mg/dL Critically high 74-106 [facility] Comment on above: Performed By: #### P OCGLUC ####[facility] Nnaqnwqwai24[address] [place], [place] [address]Dr. Swathi Reis PROF 14(COMP METB)on 022 Albumin [Mass/Vol] 2.4 g/dL Critically low 3.4-5.0 [facility] Comment on above: Performed By: #### C MP, BNP ####[facility] Jpwjlbgard616[address] [place], [place] [address]Dr. Swathi Reis Albumin/Globulin [Mass ratio] 0.6 {ratio} Normal [facility] Comment on above: Performed By: #### C MP, BNP ####[facility] Gqcuyseyte75[address] [place], [place] [address]Dr. Swathi Reis ALP [Catalytic activity/Vol] 98 U/L Normal 46-116 [facility] Comment on above: Performed By: #### C MP, BNP ####[facility] Dtzrawitfa9364[address] [place], [place] [address]Dr. Swathi Reis ALT [Catalytic activity/Vol] 13 U/L Critically low 14-59 [facility] Comment on above: Performed By: #### C MP, BNP ####[facility] Gfcukqqcwq6970[address] [place], [place] [address]Dr. Swathi Reis Anion gap [Moles/Vol] 12.4 mmol/L Normal [facility] Comment on above: Performed By: #### C MP, BNP ####[facility] Qjtbxzrasj76[address] [place], [place] [address]Dr. Swathi Reis AST [Catalytic activity/Vol] 23 U/L Normal 15-37 [facility] Comment on above: Performed By: #### C MP, BNP ####[facility] I[address]zzxosbw[address] [place] [address]Dr. Swathi Reis Bilirubin [Mass/Vol] 0.6 mg/dL Normal 0.2-1.0 [facility] Comment on above: Performed By: #### C MP, BNP ####[facility] Mtjagkdzsy377[address] [place], [place] [address]Dr. Swathi Reis Calcium [Mass/Vol] 8.9 mg/dL Normal 8.5-10.1 [facility] Comment on above: Performed By: #### C MP, BNP ####[facility] Vulkzurfbe7[address] [place], [place] [address]Dr. Swathi Reis Chloride [Moles/Vol] 100 mmol/L Normal 98-107 [facility] Comment on above: Performed By: #### C MP, BNP ####[facility] Sbmdlfqvij23[address] [place], [place] [address]Dr. Swathi Reis CO2 [Moles/Vol] 30.6 mmol/L Normal 21.0-32.0 [facility] Comment on above: Performed By: #### C MP, BNP ####[facility] Dzyxhznnja639[address] [place], [place] [address]Dr. Swathi Reis Creatinine [Mass/Vol] 1.54 mg/dL Critically high 0.55-1.02 [facility] Comment on above: Performed By: #### C MP, BNP ####[facility] Yyjkghopgl8[address] [place], [place] [address]Dr. Swathi Reis EGFR-AF ANGOLAN 40 mL/min/1.73m2 Critically low >=60 [facility] Comment on above: Performed By: #### C MP, BNP ####[facility] Frpauekpdd028[address] [place], [place] [address]Dr. Swathi Reis EGFR-NON AF ANGOLAN 33 mL/min/1.73m2 Critically low >=60 [facility] Comment on above: Performed By: #### C MP, BNP ####[facility] Uswcynphqo76[address] [place], [place] [address]Dr. Swathi Reis Globulin (S) [Mass/Vol] 3.9 g/dL Normal [facility] Comment on above: Performed By: #### C MP, BNP ####[facility] Rfeczwbiso[address] [place] [address]Dr. Swathi Reis Glucose [Mass/Vol] 143 mg/dL Critically high 74-106 [facility] Comment on above: Performed By: #### C MP, BNP ####[facility] Y[address]bmczbyd3[address] [place] [address]Dr. Swathi Reis Potassium [Moles/Vol] 4.0 mmol/L Normal 3.5-5.1 [facility] Comment on above: Performed By: #### C MP, BNP ####[facility] Olhnogteio[address] [place] [address]Dr. Swathi Reis Protein [Mass/Vol] 6.3 g/dL Critically low 6.4-8.2 [facility] Comment on above: Performed By: #### C MP, BNP ####[facility] Lzdifkzjdc17[address] [place], [place] [address]Dr. Swathi Reis Sodium [Moles/Vol] 139 mmol/L Normal 136-145 [facility] Comment on above: Performed By: #### C MP, BNP ####[facility] Tkngavdfal65[address] [place], [place] [address]Dr. Swathi Reis Urea nitrogen [Mass/Vol] 27.0 mg/dL Critically high 7.0-18.0 [facility] Comment on above: Performed By: #### C MP, BNP ####[facility] Rtdspgiqft0647[address] [place], [place] [address]Dr. Swathi Reis Urea nitrogen/Creatinine [Mass ratio] 17.5 mg/mg Normal [facility] Comment on above: Performed By: #### C MP, BNP ####[facility] [address]rjlqdxiuh[address] [place] [address]Dr. Swathi Reis VANCOMYCIN TROUGHon 30-20 22 VANCOMYCIN TROUGH 13.2 ug/ml Normal 5.0-20.0 [facility] Comment on above: Performed By: #### V ANCT ####[facility] Zvpuaecqxh[address] [place], [place] [address]Dr. Swathi Reis XR CHEST 2 Von 11-30-2022 XR CHEST 2 V Normal [facility] BNPon 08-21-2022 Natriuretic peptide B (Bld) [Mass/Vol] 3683.0 pg/mL Critically high <=1,800.0 [facility] Comment on above: Performed By: #### C MP, BNP ####[facility] Ezeojavxuj82[address] [place], [place] [address]DrOtto Reis CBC AUTO DIFFon 08-21-2022 BASO # 0.1 103/ul Normal 0.0-0.1 [facility] Comment on above: Performed By: #### C BC ####[facility] Fdussiyoel454[address] [place], [place] [address]DrOtto Reis Basophils/100 WBC (Bld) 0.4 % Normal 0.2-2.0 [facility] Comment on above: Performed By: #### C BC ####[facility] Eawnzfbpld27[address] [place], [place] [address]DrOtto Reis EO # 0.2 103/ul Normal 0.0-0.7 [facility] Comment on above: Performed By: #### C BC ####[facility] Emcpmidric6[address] [place], [place] [address]Dr. Swathi Reis Eosinophils/100 WBC (Bld) 1.8 % Normal 0.9-7.0 [facility] Comment on above: Performed By: #### C BC ####[facility] Uzztikstri40[address] [place], [place] [address]DrOtto Reis Erythrocyte distribution width (RBC) [Ratio] 14.4 % Normal 11.0-15.0 [facility] Comment on above: Performed By: #### C BC ####[facility] Olhnkhlvll148[address] [place], [place] [address]DrOtto Reis Hematocrit (Bld) [Volume fraction] 33.5 % Critically low 36.0-48.0 [facility] Comment on above: Performed By: #### C BC ####[facility] Etlcgsnskh70[address] [place], [place] [address]DrOtto Reis Hemoglobin (Bld) [Mass/Vol] 10.8 g/dL Critically low 12.0-16.0 [facility] Comment on above: Performed By: #### C BC ####[facility] W[address]klhxoij[address] [place] [address]DrOtto Reis IG # 0.06 10e3/ul Critically high 0.00-0.03 [facility] Comment on above: Performed By: #### C BC ####[facility] Tjomeucqvi[address] [place] [address]DrOtto Reis IG % 0.5 % Normal 0.0-0.5 [facility] Comment on above: Performed By: #### C BC ####[facility] L[address]ellsnn[address] [place] [address]DrOtto Reis LYMPH # 0.9 103/ul Critically low 1.2-3.8 [facility] Comment on above: Performed By: #### C BC ####[facility] Ppfnngzsoc[address] [place] [address]DrOtto Reis Lymphocytes/100 WBC (Bld) 7.2 % Critically low 20.5-60.0 [facility] Comment on above: Performed By: #### C BC ####[facility] Gphgcrmxxd[address] [place] [address]DrOtto Reis MANUAL DIFF REQ NO Normal [facility] Comment on above: Performed By: #### C BC ####[facility] [address]jevz[address] [place] [address]DrOtto Reis MCH (RBC) [Entitic mass] 29.0 pg Normal 26.7-34.0 [facility] Comment on above: Performed By: #### C BC ####[facility] Hrvabvgsxr6[address] [place] [address]DrOtto Reis MCHC (RBC) [Mass/Vol] 32.2 g/dL Normal 29.9-35.2 [facility] Comment on above: Performed By: #### C BC ####[facility] Qattzpjpah[address] [place] [address]DrOtto Reis MCV (RBC) [Entitic vol] 90.1 fL Normal 81.0-99.0 [facility] Comment on above: Performed By: #### C BC ####[facility] Auxmphlsma[address] [place] [address]DrOtto Swathi Reis MONO # 0.8 103/ul Normal 0.3-0.8 [facility] Comment on above: Performed By: #### C BC ####[facility] Bgjsnltemv9[address] [place] [address]DrOtto Reis Monocytes/100 WBC (Bld) 6.3 % Normal 1.7-12.0 [facility] Comment on above: Performed By: #### C BC ####[facility] Lwuejsenhh16[address] [place], [place] [address]Dr. Inessatracy Reis NEUT # 10.7 103/ul Critically high 1.4-6.5 [facility] Comment on above: Performed By: #### C BC ####[facility] Vuijxplckv27[address] [place], [place] [address]Dr. Swathi Reis Neutrophils/100 WBC (Bld) 83.8 % Critically high 43.0-75.0 [facility] Comment on above: Performed By: #### C BC ####[facility] Letgdmnrgm7[address] [place], [place] [address]DrOtto Inessatracy Reis Platelet mean volume (Bld) [Entitic vol] 10.7 fL Normal 9.5-13.5 [facility] Comment on above: Performed By: #### C BC ####[facility] Lodanyfxld[address] [place] [address]Dr. Swathi Reis PLT 324 103/ul Normal 150-450 [facility] Comment on above: Performed By: #### C BC ####[facility] Jocrvvttlv[address] [place] [id number] Reis RBC 3.72 106/ul Critically low 4.20-5.40 [facility] Comment on above: Performed By: #### C BC ####[facility] Hvxgtfmuke22[address] [place] [id number] Reis WBC 12.8 103/ul Critically high 4.0-11.0 [facility] Comment on above: Performed By: #### C BC ####[facility] Huccjocdnb[address] [place] [address]Dr. Swathi Reis DIGOXINon 08-21-2022 DIG 1.3 ng/mL Normal 0.9-2.0 [facility] Comment on above: Performed By: #### D IG ####[facility] Sybhyhyhnf[address] [place] [address]Dr. Swathi Reis POINT OF CARE GLUCOSEon 07-25 Glucose [Mass/Vol] 129 mg/dL Critically high 74-106 [facility] Comment on above: Performed By: #### P OCGLUC ####[facility] Dymaojtdzs[address] [place], [place] [address]Dr. Swathi Reis Glucose [Mass/Vol] 145 mg/dL Critically high 74-106 [facility] Comment on above: Performed By: #### P OCGLUC ####[facility] Iovtkipnhb7926[address] [place], [place] [address]Dr. Swathi Reis Glucose [Mass/Vol] 366 mg/dL Critically high 74-106 [facility] Comment on above: Performed By: #### P OCGLUC ####[facility] Zfpmguxcus99[address] [place], [place] [address]Dr. Swathi Reis Glucose [Mass/Vol] 149 mg/dL Critically high 74-106 [facility] Comment on above: Performed By: #### P OCGLUC ####[facility] Yjdxsnhrzh9[address] [place], [place] [address]Dr. Swathi Reis PROF 14(COMP METB)on 022 Albumin [Mass/Vol] 2.4 g/dL Critically low 3.4-5.0 [facility] Comment on above: Performed By: #### C MP, BNP ####[facility] Kvqbmnhzao55[address] [place] [address]Dr. Swathi Reis Albumin/Globulin [Mass ratio] 0.5 {ratio} Normal [facility] Comment on above: Performed By: #### C MP, BNP ####[facility] Nqssjrmbrx75[address] [place] [address]Dr. Swathi Reis ALP [Catalytic activity/Vol] 93 U/L Normal 46-116 [facility] Comment on above: Performed By: #### C MP, BNP ####[facility] Tvdgumcqdj86[address] [place], [place] [address]Dr. Swathi Reis ALT [Catalytic activity/Vol] 11 U/L Critically low 14-59 [facility] Comment on above: Performed By: #### C MP, BNP ####[facility] Gfcngftubt299[address] [place], [place] [address]Dr. Swathi Reis Anion gap [Moles/Vol] 9.8 mmol/L Normal [facility] Comment on above: Performed By: #### C MP, BNP ####[facility] Ordsdmqfnt11[address] [place], [place] [address]Dr. Swathi Reis AST [Catalytic activity/Vol] 14 U/L Critically low 15-37 [facility] Comment on above: Performed By: #### C MP, BNP ####[facility] Pljozaknom8867[address] [place], [place] [address]Dr. Swathi Reis Bilirubin [Mass/Vol] 0.6 mg/dL Normal 0.2-1.0 [facility] Comment on above: Performed By: #### C MP, BNP ####[facility] Gufjfeymbu8464[address] [place], [place] [address]Dr. Swathi Reis Calcium [Mass/Vol] 9.4 mg/dL Normal 8.5-10.1 [facility] Comment on above: Performed By: #### C MP, BNP ####[facility] Aukkdosyvl66[address] [place], [place] [address]Dr. Swathi Reis Chloride [Moles/Vol] 102 mmol/L Normal 98-107 [facility] Comment on above: Performed By: #### C MP, BNP ####[facility] Ypcprsouhu[address] [place], [place] [address]Dr. Swathi Reis CO2 [Moles/Vol] 33.4 mmol/L Critically high 21.0-32.0 [facility] Comment on above: Performed By: #### C MP, BNP ####[facility] Nslrcchnfu75[address] [place] [address]Dr. Swathi Reis Creatinine [Mass/Vol] 1.79 mg/dL Critically high 0.55-1.02 [facility] Comment on above: Performed By: #### C MP, BNP ####[facility] Augdyqkync14[address] [place], [place] [address]Dr. Swathi Reis EGFR-AF ANGOLAN 33 mL/min/1.73m2 Critically low >=60 [facility] Comment on above: Performed By: #### C MP, BNP ####[facility] Kaudxffgfv14[address] [place], [place] [address]Dr. Swathi Reis EGFR-NON AF ANGOLAN 27 mL/min/1.73m2 Critically low >=60 [facility] Comment on above: Performed By: #### C MP, BNP ####[facility] Woyjuptbpj094[address] [place], [place] [address]Dr. Swathi Reis Globulin (S) [Mass/Vol] 4.9 g/dL Normal [facility] Comment on above: Performed By: #### C MP, BNP ####[facility] Ncxqyiirdf493[address] [place], [place] [address]Dr. Swathi Reis Glucose [Mass/Vol] 121 mg/dL Critically high 74-106 [facility] Comment on above: Performed By: #### C MP, BNP ####[facility] Orvoahyksf[address] [place], [place] [address]Dr. Swathi Reis Potassium [Moles/Vol] 3.2 mmol/L Critically low 3.5-5.1 [facility] Comment on above: Performed By: #### C MP, BNP ####[facility] Bcubeidgmp6625[address] [place], [place] [address]Dr. Swathi Reis Protein [Mass/Vol] 7.3 g/dL Normal 6.4-8.2 [facility] Comment on above: Performed By: #### C MP, BNP ####[facility] Ututylxxut23[address] [place], [place] [address]Dr. Swathi Reis Sodium [Moles/Vol] 142 mmol/L Normal 136-145 [facility] Comment on above: Performed By: #### C MP, BNP ####[facility] Rrghstybvb92[address] [place], [place] [address]Dr. Swathi Chato Urea nitrogen [Mass/Vol] 32.0 mg/dL Critically high 7.0-18.0 [facility] Comment on above: Performed By: #### C MP, BNP ####[facility] Bnfhmpkzzh93[address] [place], [place] [address]Dr. Swathi Reis Urea nitrogen/Creatinine [Mass ratio] 17.9 mg/mg Normal [facility] Comment on above: Performed By: #### C MP, BNP ####[facility] Sdcjaxytro4[address] [place], [place] [address]Dr. Swathi Chato BNPon 08-20-2022 Natriuretic peptide B (Bld) [Mass/Vol] 7302.0 pg/mL Critically high <=1,800.0 [facility] Comment on above: Performed By: #### C MP, BNP ####[facility] Xanmhmdmel6[address] [place], [place] [address]Dr. Inessatracy Chato C. DIFF PCRon 08-20-2022 C. DIFFICILE PCR Positive Critically abnormal NEGATIVE [facility] Comment on above: Performed By: #### C DIFPOC ####[facility] Ebkdienztk[address] [place], [place] [address]Dr. Swathi Chato CBC AUTO DIFFon 08-20-2022 BASO # 0.1 103/ul Normal 0.0-0.1 [facility] Comment on above: Performed By: #### C BC ####[facility] Wpkptbadvq5[address] [place], [place] [address]Dr. Swathi Reis Basophils/100 WBC (Bld) 0.5 % Normal 0.2-2.0 [facility] Comment on above: Performed By: #### C BC ####[facility] Vmqncxouwy[address] [place], [place] [address]Dr. Swathi Reis EO # 0.1 103/ul Normal 0.0-0.7 [facility] Comment on above: Performed By: #### C BC ####[facility] Rqlabhcooh[address] [place], [place] [address]Dr. Swathi Reis Eosinophils/100 WBC (Bld) 0.3 % Critically low 0.9-7.0 [facility] Comment on above: Performed By: #### C BC ####[facility] Tivemvrrdl[address] [place] [address]Dr. Swathi Reis Erythrocyte distribution width (RBC) [Ratio] 14.5 % Normal 11.0-15.0 [facility] Comment on above: Performed By: #### C BC ####[facility] Lobzzxopzt[address] [place] [address]Dr. Swathi Reis Hematocrit (Bld) [Volume fraction] 31.4 % Critically low 36.0-48.0 [facility] Comment on above: Performed By: #### C BC ####[facility] Hjjzhyqdnc[address] [place] [address]Dr. Swathi Reis Hemoglobin (Bld) [Mass/Vol] 10.3 g/dL Critically low 12.0-16.0 [facility] Comment on above: Performed By: #### C BC ####[facility] Zyhgwwphrt[address] [place] [address]Dr. Swathi Reis IG # 0.12 10e3/ul Critically high 0.00-0.03 [facility] Comment on above: Performed By: #### C BC ####[facility] Blqvjsawvo[address] [place] [address]Dr. Swathi Reis IG % 0.7 % Critically high 0.0-0.5 [facility] Comment on above: Performed By: #### C BC ####[facility] Whqyqemvjd02[address] [place] [address]Dr. Swathi Reis LYMPH # 0.9 103/ul Critically low 1.2-3.8 [facility] Comment on above: Performed By: #### C BC ####[facility] Lhmupdvjyh70[address] [place] [address]Dr. Swathi Reis Lymphocytes/100 WBC (Bld) 5.6 % Critically low 20.5-60.0 [facility] Comment on above: Performed By: #### C BC ####[facility] Nvdvbxedkd0733 [place] [id number]. Swathi Reis MANUAL DIFF REQ NO Normal [facility] Comment on above: Performed By: #### C BC ####[facility] Taupjcpuux28[address] [place] [id number]. Swathi Reis MCH (RBC) [Entitic mass] 29.3 pg Normal 26.7-34.0 [facility] Comment on above: Performed By: #### C BC ####[facility] Ulbbjragkk[address] [place] [address]Dr. Swathi Reis MCHC (RBC) [Mass/Vol] 32.8 g/dL Normal 29.9-35.2 [facility] Comment on above: Performed By: #### C BC ####[facility] Nuebbtulnv[address] [place] [address]Dr. Swathi Chato MCV (RBC) [Entitic vol] 89.5 fL Normal 81.0-99.0 [facility] Comment on above: Performed By: #### C BC ####[facility] Wlfslzfakc1622 [place] [id number]. Swathi Chato MONO # 0.9 103/ul Critically high 0.3-0.8 [facility] Comment on above: Performed By: #### C BC ####[facility] Tbkrdjrchu43[address] [place] [address]Dr. Inessatracy Reis Monocytes/100 WBC (Bld) 5.6 % Normal 1.7-12.0 [facility] Comment on above: Performed By: #### C BC ####[facility] Dipwnpwajq6871 [place] [id number]. Swathi Reis NEUT # 14.1 103/ul Critically high 1.4-6.5 [facility] Comment on above: Performed By: #### C BC ####[facility] Nqnwersfov4681 [place] [phone]. Inessatracy Reis Neutrophils/100 WBC (Bld) 87.3 % Critically high 43.0-75.0 [facility] Comment on above: Performed By: #### C BC ####[facility] Zeqlrfhnfq[address] [place] [id number]. Swathi Reis Platelet mean volume (Bld) [Entitic vol] 10.8 fL Normal 9.5-13.5 [facility] Comment on above: Performed By: #### C BC ####[facility] Entgqqafah3033 [place] [phone]. Swathi Reis PLT 303 103/ul Normal 150-450 [facility] Comment on above: Performed By: #### C BC ####[facility] Orvompivkp8003 [place] [id number]. Swathi Reis RBC 3.51 106/ul Critically low 4.20-5.40 [facility] Comment on above: Performed By: #### C BC ####[facility] Qslzzahcia2961 [place] [phone]. Swathi Reis WBC 16.2 103/ul Critically high 4.0-11.0 [facility] Comment on above: Performed By: #### C BC ####[facility] Nqhfhcpltc5461 [place] [phone]. Swathi Reis DIGOXINon 08-20-2022 DIG 1.2 ng/mL Normal 0.9-2.0 [facility] Comment on above: Performed By: #### D IG ####[facility] Wlqroajqfg4345 [place] [phone]. Swathi Reis POINT OF CARE GLUCOSEon 07-25 Glucose [Mass/Vol] 180 mg/dL Critically high 74-106 [facility] Comment on above: Performed By: #### P OCGLUC ####[facility] Brjsvdnbxf1225 [place] [phone]. Swathi Reis Glucose [Mass/Vol] 115 mg/dL Critically high 74-106 [facility] Comment on above: Performed By: #### P OCGLUC ####[facility] [facility] [address] [place] [id number]. Swathi Reis Glucose [Mass/Vol] 235 mg/dL Critically high -106 [facility] Comment on above: Performed By: #### P OCGLUC ####[facility] Lyrsxuczyd[address] [place] [address]Dr. Swathi Reis PROF 14(COMP METB)on 022 Albumin [Mass/Vol] 2.5 g/dL Critically low 3.4-5.0 Th e [facility] Comment on above: Performed By: #### C MP, BNP ####[facility] Kuspocxpcz[address] [place] [address]Dr. Swathi Reis Albumin/Globulin [Mass ratio] 0.6 {ratio} Normal [facility] Comment on above: Performed By: #### C MP, BNP ####[facility] Fkqtmpordy[address] [place] [address]Dr. Swathi Reis ALP [Catalytic activity/Vol] 69 U/L Normal 46-116 [facility] Comment on above: Performed By: #### C MP, BNP ####[facility] Dvxcqdfslx[address] [place] [address]Dr. Swathi Reis ALT [Catalytic activity/Vol] 11 U/L Critically low 14-59 [facility] Comment on above: Performed By: #### C MP, BNP ####[facility] Dkjjtqsbas7308 [place] [address]Dr. Swathi Reis Anion gap [Moles/Vol] 11.7 mmol/L Normal [facility] Comment on above: Performed By: #### C MP, BNP ####[facility] Pbqjslmzau86[address] [place] [address]Dr. Swathi Reis AST [Catalytic activity/Vol] 18 U/L Normal 15-37 [facility] Comment on above: Performed By: #### C MP, BNP ####[facility] Krucurrgqm80[address] [place] [address]Dr. Swathi Reis Bilirubin [Mass/Vol] 1.0 mg/dL Normal 0.2-1.0 [facility] Comment on above: Performed By: #### C MP, BNP ####[facility] Xsoyeivefr3[address] [place] [address]Dr. Swathi Reis Calcium [Mass/Vol] 9.2 mg/dL Normal 8.5-10.1 [facility] Comment on above: Performed By: #### C MP, BNP ####[facility] Slvkoxhvku98[address] [place] [address]Dr. Swathi Reis Chloride [Moles/Vol] 104 mmol/L Normal 98-107 [facility] Comment on above: Performed By: #### C MP, BNP ####[facility] Quknlqsqae[address] [place], [place] [address]Dr. Swathi Reis CO2 [Moles/Vol] 32.7 mmol/L Critically high 21.0-32.0 [facility] Comment on above: Performed By: #### C MP, BNP ####[facility] Ehuzyrnkpx[address] [place], [place] [address]Dr. Swathi Reis Creatinine [Mass/Vol] 1.86 mg/dL Critically high 0.55-1.02 [facility] Comment on above: Performed By: #### C MP, BNP ####[facility] Fxbspqdunb[address] [place], [place] [address]Dr. Inessatracy Chato EGFR-AF ANGOLAN 32 mL/min/1.73m2 Critically low >=60 [facility] Comment on above: Performed By: #### C MP, BNP ####[facility] Zvziuxguoo[address] [place], [place] [address]Dr. Swathi Reis EGFR-NON AF ANGOLAN 26 mL/min/1.73m2 Critically low >=60 [facility] Comment on above: Performed By: #### C MP, BNP ####[facility] Nmwhejedbe312[address] [place], [place] [address]Dr. Swathi Reis Globulin (S) [Mass/Vol] 4.2 g/dL Normal [facility] Comment on above: Performed By: #### C MP, BNP ####[facility] Zhxuetiaxp149[address] [place], [place] [address]Dr. Swathi Reis Glucose [Mass/Vol] 135 mg/dL Critically high 74-106 [facility] Comment on above: Performed By: #### C MP, BNP ####[facility] Eguklrfzww3[address] [place], [place] [address]Dr. Swathi Reis Potassium [Moles/Vol] 3.4 mmol/L Critically low 3.5-5.1 [facility] Comment on above: Performed By: #### C MP, BNP ####[facility] Mjesykwsmh88[address] [place] [address]Dr. Swathi Reis Protein [Mass/Vol] 6.7 g/dL Normal 6.4-8.2 The [facility] Comment on above: Performed By: #### C MP, BNP ####[facility] Hfpxwilwct467[address] [place], [place] [address]Dr. Inessatracy Reis Sodium [Moles/Vol] 145 mmol/L Normal 136-145 The [facility] Comment on above: Performed By: #### C MP, BNP ####[facility] Gwrqfgfsya0[address] [place], [place] [address]Dr. Swathi Reis Urea nitrogen [Mass/Vol] 29.0 mg/dL Critically high 7.0-18.0 [facility] Comment on above: Performed By: #### C MP, BNP ####[facility] Gcfqiwqtwy[address] [place], [place] [address]Dr. Swathi Reis Urea nitrogen/Creatinine [Mass ratio] 15.6 mg/mg Normal [facility] Comment on above: Performed By: #### C MP, BNP ####[facility] Swuawnfvre608[address] [place], [place] [address]Dr. Inessatracy Reis XR CHEST 1 Von 08-20-2022 XR CHEST 1 V Normal [facility] BLOOD GASES BTYon 08-19-2022 02 MODE BIPAP Normal [facility] Comment on above: Performed By: #### A BG ####[facility] Anlerxkeic[address] [place], [place] [address]Dr. Swathi Reis ALLENS TEST Positive Normal [facility] Comment on above: Performed By: #### A BG ####[facility] Pxpiajhlqb96[address] [place], [place] [address]Dr. Swathi Reis Base excess Calc (Bld) [Moles/Vol] 0.8 mmol/L Normal -2.0-2.0 [facility] Comment on above: Performed By: #### A BG ####[facility] Xlkxspkkky[address] [place] [address]Dr. Swathi Reis BIPAP PRESSURE 12/6 Normal The [facility] Comment on above: Performed By: #### A BG ####[facility] Jhvebslrqm98[address] [place] [address]Dr. Swathi Reis CPAP Normal [facility] Comment on above: Performed By: #### A BG ####[facility] Adpxifqcrq0870 [place] [address]Dr. Swathi Reis FIO2 90.00 % Normal [facility] Comment on above: Performed By: #### A BG ####[facility] Rujxkiubrh[address] [place], [place] [address]Dr. Swathi Reis HCO3 (Bld) [Moles/Vol] 25.9 mmol/L Normal 22.0-26.0 [facility] Comment on above: Performed By: #### A BG ####[facility] Ufrocavind[address] [place], [place] [address]Dr. Swathi Chato LPM Normal [facility] Comment on above: Performed By: #### A BG ####[facility] Nasoqkiklb88[address] [place], [place] [address]Dr. Swathi Reis MINUTE VOLUME Normal The [facility] Comment on above: Performed By: #### A BG ####[facility] Vbsgwylymf22[address] [place], [place] [address]Dr. Swathi Reis Oxygen (Bld) [Partial pressure] 95.0 mm[Hg] Normal 80.0-100.0 [facility] Comment on above: Performed By: #### A BG ####[facility] Ejlmmojkfv27[address] [place], [place] [address]Dr. Swathi Reis Oxygen saturation in Blood 97.7 % Normal 95.0-100.0 [facility] Comment on above: Performed By: #### A BG ####[facility] Lzqlboovqn46[address] [place], [place] [address]Dr. Swathi Reis PCO2 44.2 mmHg Normal 35.0-45.0 [facility] Comment on above: Performed By: #### A BG ####[facility] Mifmiaqdyj7[address] [place] [address]Dr. Swathi Reis PEEP [facility] Comment on above: Performed By: #### A BG ####[facility] Hrvglofxxv94[address] [place] [address]Dr. Swathi Reis pH (Bld) 7.377 [pH] Normal 7.350-7.450 [facility] Comment on above: Performed By: #### A BG ####[facility] Sfnhmnteev6903 [place] [address]Dr. Swathi Reis PIP [facility] Comment on above: Performed By: #### A BG ####[facility] Rfxlmbnzvr[address] [place], [place] [address]Dr. Swathi Reis PS [facility] Comment on above: Performed By: #### A BG ####[facility] Lswkokmrok[address] [place], [place] [address]Dr. Swathi Reis PUNCTURE SITE RR [facility] Comment on above: Performed By: #### A BG ####[facility] Dmrhanbrkj[address] [place], [place] [address]Dr. Swathi Reis RATE [facility] Comment on above: Performed By: #### A BG ####[facility] Iibprgfhro[address] [place], [place] [address]Dr. Swathi Reis VENT MODE [facility] Comment on above: Performed By: #### A BG ####[facility] Pnqcshq[address] [place], [place] [address]Dr. Swathi Reis VT [facility] Comment on above: Performed By: #### A BG ####[facility] Rtjsrmmfot[address] [place], [place] [address]Dr. Swathi Reis BNPon 08-19-2022 Natriuretic peptide B (Bld) [Mass/Vol] 2862.0 pg/mL Critically high <=1,800.0 [facility] Comment on above: Performed By: #### L IPA, BNP ####[facility] Ebcgpvvhpv[address] [place], [place] [address]Dr. Swathi Reis CARDIAC TRINA 3-6on 2 CK [Catalytic activity/Vol] 25 U/L Critically low 26-192 [facility] Comment on above: Performed By: #### C MREP ####[facility] Xlsrplqccn6[address] [place] [address]Dr. Swathi Reis CK.MB [Mass/Vol] 0.57 ng/mL Normal <=3.60 The [facility] Comment on above: Performed By: #### C MREP ####[facility] Cdylznuvpg7[address] [place] [address]Dr. Swathi Reis HSTROP 16.6 pg/mL Normal 4.0-51.3 [facility] Comment on above: Result Comment: CUT- OFF POINTS HAVE BEEN ESTABLISHED BASED ON THE FOURTH UNIVERSAL DEFINITIONS OF MYOCARDIALINFARCTION. THE UPPER REFERENCE LIMIT (URL) OF TROPONIN, DEFINED THE 99TH PERCENTILE OFcTnI DISTRIBUTION IN A REFERENCE POPULATION, HAS BEEN CONFIRMED THE DECISION THRESHOLDFOR [place] DIAGNOSIS. Performed By: #### C MREP ####[facility] Ddsfzzfqun9[address] [place] [address]Dr. Swathi Reis CK [Catalytic activity/Vol] 26 U/L Normal 26-192 [facility] Comment on above: Performed By: #### C MREP ####[facility] Dovfcxpkbj7491 [place] [address]Dr. Swathi Reis CK.MB [Mass/Vol] 0.59 ng/mL Normal <=3.60 The [facility] Comment on above: Performed By: #### C MREP ####[facility] Ekrhjlpyfr1664 [place] [address]Dr. Swathi Reis HSTROP 16.3 pg/mL Normal 4.0-51.3 [facility] Comment on above: Result Comment: CUT- OFF POINTS HAVE BEEN ESTABLISHED BASED ON THE FOURTH UNIVERSAL DEFINITIONS OF MYOCARDIALINFARCTION. THE UPPER REFERENCE LIMIT (URL) OF TROPONIN, DEFINED THE 99TH PERCENTILE OFcTnI DISTRIBUTION IN A REFERENCE POPULATION, HAS BEEN CONFIRMED THE DECISION THRESHOLDFOR [place] DIAGNOSIS. Performed By: #### C MREP ####[facility] Kxewvmosaj8[address] [place] [address]Dr. Swathi Reis CBC AUTO DIFFon 08-19-2022 BASO # 0.1 103/ul Normal 0.0-0.1 [facility] Comment on above: Performed By: #### C BC ####[facility] Yjjapbarsv[address] [place], [place] [address]Dr. Swathi Reis Basophils/100 WBC (Bld) 0.4 % Normal 0.2-2.0 [facility] Comment on above: Performed By: #### C BC ####[facility] Sfmwmeeosq[address] [place], [place] [address]Dr. Swathi Reis EO # 0.1 103/ul Normal 0.0-0.7 [facility] Comment on above: Performed By: #### C BC ####[facility] Xriqvpzgnj[address] [place], [place] [address]Dr. Swathi Reis Eosinophils/100 WBC (Bld) 0.4 % Critically low 0.9-7.0 [facility] Comment on above: Performed By: #### C BC ####[facility] Mtcnbuxloh[address] [place], [place] [address]Dr. Swathi Reis Erythrocyte distribution width (RBC) [Ratio] 14.2 % Normal 11.0-15.0 [facility] Comment on above: Performed By: #### C BC ####[facility] Qxdavtumph8[address] [place], [place] [address]Dr. Swathi Reis Hematocrit (Bld) [Volume fraction] 34.4 % Critically low 36.0-48.0 [facility] Comment on above: Performed By: #### C BC ####[facility] [address]emtwfaqo[address] [place], [place] [address]Dr. Swathi Reis Hemoglobin (Bld) [Mass/Vol] 11.2 g/dL Critically low 12.0-16.0 [facility] Comment on above: Performed By: #### C BC ####[facility] Ttqtpkollc[address] [place], [place] [address]Dr. Swathi Reis IG # 0.08 10e3/ul Critically high 0.00-0.03 The [facility] Comment on above: Performed By: #### C BC ####[facility] Az[address]zygykdd4[address] [place] [id number]. Swathi Reis IG % 0.4 % Normal 0.0-0.5 [facility] Comment on above: Performed By: #### C BC ####[facility] Xzidowtocw7[address] [place] [address]Dr. Swathi Reis LYMPH # 0.8 103/ul Critically low 1.2-3.8 The [facility] Comment on above: Performed By: #### C BC ####[facility] Moixhrrnbm9[address] [place] [address]Dr. Swathi Chato Lymphocytes/100 WBC (Bld) 4.1 % Critically low 20.5-60.0 [facility] Comment on above: Performed By: #### C BC ####[facility] Mtljdbopss33[address] [place] [address]Dr. Inessatracy Reis MANUAL DIFF REQ NO Normal The [facility] Comment on above: Performed By: #### C BC ####[facility] Hwyjscjyfo76[address] [place] [address]Dr. Swathi Reis MCH (RBC) [Entitic mass] 29.1 pg Normal 26.7-34.0 [facility] Comment on above: Performed By: #### C BC ####[facility] [address]ujarqvnmr[address] [place], [place] [address]Dr. Swathi Reis MCHC (RBC) [Mass/Vol] 32.6 g/dL Normal 29.9-35.2 [facility] Comment on above: Performed By: #### C BC ####[facility] Pbmnrybpsp9[address] [place] [address]Dr. Swathi Reis MCV (RBC) [Entitic vol] 89.4 fL Normal 81.0-99.0 [facility] Comment on above: Performed By: #### C BC ####[facility] Eimevblakr[address] [place], [place] [address]Dr. Swathi Reis MONO # 1.1 103/ul Critically high 0.3-0.8 The [facility] Comment on above: Performed By: #### C BC ####[facility] Lvzmrfdvag4354 [place] [address]Dr. Swathi Reis Monocytes/100 WBC (Bld) 5.8 % Normal 1.7-12.0 [facility] Comment on above: Performed By: #### C BC ####[facility] Iafwhyxpbn5115 [place] [address]Dr. Swathi Reis NEUT # 16.4 103/ul Critically high 1.4-6.5 The [facility] Comment on above: Performed By: #### C BC ####[facility] Lgtsvelvvu8761 [place] [address]Dr. Swathi Reis Neutrophils/100 WBC (Bld) 88.9 % Critically high 43.0-75.0 [facility] Comment on above: Performed By: #### C BC ####[facility] Pywoddskji4035 [place] [address]Dr. Swathi Reis Platelet mean volume (Bld) [Entitic vol] 10.6 fL Normal 9.5-13.5 [facility] Comment on above: Performed By: #### C BC ####[facility] Iliqskbmfn1859 [place] [address]Dr. Swathi Reis PLT 366 103/ul Normal 150-450 [facility] Comment on above: Performed By: #### C BC ####[facility] Nprgbiornb3416 [place] [address]Dr. Swathi Reis RBC 3.85 106/ul Critically low 4.20-5.40 The [facility] Comment on above: Performed By: #### C BC ####[facility] Lrnblwgdqg4047 [place] [address]Dr. Swathi Reis WBC 18.4 103/ul Critically high 4.0-11.0 The [facility] Comment on above: Performed By: #### C BC ####[facility] Ypbjehchvx9799 [place] [address]Dr. Swathi Reis CTA CHEST WO W CONon 022 CTA CHEST WO W CON Normal The [facility] CULTURE BLOODon 08-19-2022 Microscopic examination of blood, culture Culture Observations: NO GROWTH AT 5 DAYS. Normal [facility] Comment on above: Performed By: #### B LDCX2 ####[facility] Vnvufokurg55[address] [place] [id number]. Swathi Reis Microscopic examination of blood, culture Culture Observations: NO GROWTH AT 5 DAYS. Normal [facility] Comment on above: Performed By: #### B LDCX1 ####[facility] Nedkallsyd5[address] [place] [address]Dr. Swathi Reis Covid-19 PCR (CVDTB)on 07-25 SARS-CoV-2 (COVID-19) RNA ÓSCAR+probe Ql (Unsp spec) Not detected Normal NOT DETECTED [facility] Comment on above: Result Comment: When diagnostic [...] for this test is supported by the [place] of [employer] and Human Service's declaration that [...] be used). Performed By: #### C VDTBH ####[facility] Cfexmkzcfb26[address] [place] [address]Dr. Swathi Reis Performed By: #### R SPLUS ####[facility] Vvqpbptvnj3102 [place] [address]Dr. Swathi Reis LACTATE/LACTIC ACIDon 2021 Lactate [Moles/Vol] 1.5 mmol/L Normal 0.4-1.9 [facility] Comment on above: Performed By: #### L ACT ####[facility] Fsojlbqgmn5760 [place] [address]Dr. Swathi Reis LIPASEon 08-19-2022 Lipase [Catalytic activity/Vol] 130.0 U/L Normal 73.0-393.0 [facility] Comment on above: Performed By: #### L IPA, BNP ####[facility] Ehzhpfvuvb4[address] [place] [address]Dr. Swathi Reis POINT OF CARE GLUCOSEon 07-25 Glucose [Mass/Vol] 222 mg/dL Critically high -106 [facility] Comment on above: Performed By: #### P OCGLUC ####[facility] [address]nwnowy[address] [place], [place] [address]Dr. Swathi Reis Glucose [Mass/Vol] 166 mg/dL Critically high -106 [facility] Comment on above: Performed By: #### P OCGLUC ####[facility] Mkpxepcpoi97[address] [place], [place] [address]Dr. Swathi Reis Glucose [Mass/Vol] 213 mg/dL Critically high -106 [facility] Comment on above: Performed By: #### P OCGLUC ####[facility] Illquhvkfs642[address] [place], [place] [address]Dr. Swathi Reis RESPIRATORY PANEL PLUSon Adenovirus Not detected Normal NOT DETECTED [facility] Comment on above: Performed By: #### R SPLUS ####[facility] Jitctauxxr[address] [place], [place] [address]Dr. tracy Reis B. Parapertusis Not detected Normal NOT DETECTED [facility] Comment on above: Performed By: #### R SPLUS ####[facility] Gqvwvadvgk[address] [place], [place] [address]Dr. Swathi Reis B. Pertussis Not detected Normal NOT DETECTED [facility] Comment on above: Performed By: #### R SPLUS ####[facility] [address]vxhbkpjg[address] [place], [place] [address]Dr. tracy [facility] Chlamydia Pneumoniae Not detected Normal NOT DETECTED [facility] Comment on above: Performed By: #### R SPLUS ####[facility] Eyevqqrcvz00[address] [place], [place] [address]Dr. tracy [facility] Coronavirus 229E Not detected Normal NOT DETECTED [facility] Comment on above: Performed By: #### R SPLUS ####[facility] Xuplqalwug[address] [place], [place] [address]Dr. Swathi [facility] Coronavirus HKU1 Not detected Normal NOT DETECTED [facility] Comment on above: Performed By: #### R SPLUS ####[facility] Qsuproefyb840[address] [place], [place] [address]Dr. Swathi [facility] Coronavirus NL63 Not detected Normal NOT DETECTED [facility] Comment on above: Performed By: #### R SPLUS ####[facility] Yiosfueoca5[address] [place], [place] [address]Dr. Swathi [facility] Coronavirus OC43 Not detected Normal NOT DETECTED [facility] Comment on above: Performed By: #### R SPLUS ####[facility] Pqwarqwezz39[address] [place], [place] [address]Dr. Swathi [facility] Influenza A H1 2009 Not detected Normal NOT DETECTED [facility] Comment on above: Performed By: #### R SPLUS ####[facility] Rdwdpmvzsm13[address] [place], [place] [address]Dr. Swathi Reis Influenza A H3 Not detected Normal NOT DETECTED [facility] Comment on above: Performed By: #### R SPLUS ####[facility] Kzegeafygj[address] [place], [place] [address]Dr. Swathi [facility] Influenza B Not detected Normal NOT DETECTED [facility] Comment on above: Performed By: #### R SPLUS ####[facility] Nnrgoeedwa6[address] [place], [place] [address]Dr. Swathi [facility] Metapneumovirus Not detected Normal NOT DETECTED [facility] Comment on above: Performed By: #### R SPLUS ####[facility] Pbjwjjuxmd406[address] [place], [place] [address]Dr. Swathi Reis Mycoplas. Pneumoniae Not detected Normal NOT DETECTED [facility] Comment on above: Performed By: #### R SPLUS ####[facility] Fubgsyckuf[address] [place], [place] [address]Dr. Swathi Reis Parainfluenza 1 Not detected Normal NOT DETECTED [facility] Comment on above: Performed By: #### R SPLUS ####[facility] Hzrqvnhinh[address] [place], [place] [address]Dr. Swathi Reis Parainfluenza 2 Not detected Normal NOT DETECTED [facility] Comment on above: Performed By: #### R SPLUS ####[facility] Cdanoruxxk8[address] [place], [place] [address]Dr. Swathi Reis Parainfluenza 3 Not detected Normal NOT DETECTED [facility] Comment on above: Performed By: #### R SPLUS ####[facility] Wh[address]zqidrwg4[address] [place], [place] [address]Dr. Swathi Reis Parainfluenza 4 Not detected Normal NOT DETECTED [facility] Comment on above: Performed By: #### R SPLUS ####[facility] T[address]czovyqw[address] [place], [place] [address]Dr. Swathi Reis Rhino/Enterovirus Not detected Normal NOT DETECTED [facility] Comment on above: Performed By: #### R SPLUS ####[facility] Mpjjbplwad[address] [place], [place] [address]Dr. Swathi Reis RP2 Header 1 RESPIRATORY PANEL: VIRUSES Normal [facility] Comment on above: Performed By: #### R SPLUS ####[facility] Ldrrxobxcy[address] [place], [place] [address]Dr. Swathi Reis RP2 Header 2 RESPIRATORY PANEL: BACTERIA Normal [facility] Comment on above: Performed By: #### R SPLUS ####[facility] Xvctktmqri64[address] [place], [place] [address]Dr. Swathi Reis RSV Not detected Normal NOT DETECTED [facility] Comment on above: Performed By: #### R SPLUS ####[facility] X[address]mlhhhec[address] [place], [place] [address]Dr. Swathi Reis XR CHEST 1 Von 08-19-2022 XR CHEST 1 V Normal [facility] BNPon 08-18-2022 Natriuretic peptide B (Bld) [Mass/Vol] 2955.0 pg/mL Critically high <=1,800.0 [facility] Comment on above: Performed By: #### B ANODE MACHINE OPERATOR ####[facility] Gcprkyvalo04[address] [place] [id number]. Swathi Chato CARDIAC TRINA ADMITon 022 CK [Catalytic activity/Vol] 26 U/L Normal 26-192 [facility] Comment on above: Performed By: #### B FAY, RACQUEL ####[facility] Bekpntlksb39[address] [place] [id number]. Swathi Reis CK.MB [Mass/Vol] 0.79 ng/mL Normal <=3.60 The [facility] Comment on above: Performed By: #### B FAY, RACQUEL ####[facility] Jqojsmddcd59[address] [place] [address]Dr. Inessatracy Reis HSTROP 16.0 pg/mL Normal 4.0-51.3 [facility] Comment on above: Result Comment: CUT- OFF POINTS HAVE BEEN ESTABLISHED BASED ON THE FOURTH UNIVERSAL DEFINITIONS OF MYOCARDIALINFARCTION. THE UPPER REFERENCE LIMIT (URL) OF TROPONIN, DEFINED THE 99TH PERCENTILE OFcTnI DISTRIBUTION IN A REFERENCE POPULATION, HAS BEEN CONFIRMED THE DECISION THRESHOLDFOR [place] DIAGNOSIS. Performed By: #### B RACQUEL APONTE ####[facility] [address]vuh[address] [place], [place] [address]Dr. Inessatracy Reis GUANACO 47 ng/mL Normal 9-82 [facility] Comment on above: Performed By: #### B RACQUEL APONTE ####[facility] Tqnlitkmbn65[address] [place] [address]Dr. Swathi Reis CBC AUTO DIFFon 08-18-2022 BASO # 0.1 103/ul Normal 0.0-0.1 [facility] Comment on above: Performed By: #### C BC ####[facility] [address]gvwzzxu16[address] [place] [address]Dr. Swathi Reis Basophils/100 WBC (Bld) 0.4 % Normal 0.2-2.0 [facility] Comment on above: Performed By: #### C BC ####[facility] Nhcdevepwu[address] [place], [place] [address]Dr. Swathi Reis EO # 0.1 103/ul Normal 0.0-0.7 [facility] Comment on above: Performed By: #### C BC ####[facility] [address]owjcvrh[address] [place] [address]Dr. Swathi Reis Eosinophils/100 WBC (Bld) 0.9 % Normal 0.9-7.0 [facility] Comment on above: Performed By: #### C BC ####[facility] Dojbuknlhf3298 [place] [address]Dr. Swathi Reis Erythrocyte distribution width (RBC) [Ratio] 14.2 % Normal 11.0-15.0 [facility] Comment on above: Performed By: #### C BC ####[facility] Bhspelovbr032[address] [place], [place] [address]Dr. Swathi Reis Hematocrit (Bld) [Volume fraction] 34.1 % Critically low 36.0-48.0 [facility] Comment on above: Performed By: #### C BC ####[facility] Rdrcwuvwlp[address] [place], [place] [address]Dr. Swathi Reis Hemoglobin (Bld) [Mass/Vol] 11.2 g/dL Critically low 12.0-16.0 [facility] Comment on above: Performed By: #### C BC ####[facility] Nlmwpwlgmu7[address] [place], [place] [address]Dr. Swathi Reis IG # 0.06 10e3/ul Critically high 0.00-0.03 [facility] Comment on above: Performed By: #### C BC ####[facility] Uxxnkcotyn[address] [place], [place] [address]Dr. Swathi Reis IG % 0.4 % Normal 0.0-0.5 [facility] Comment on above: Performed By: #### C BC ####[facility] Eyfvuwrrcg58[address] [place], [place] [address]Dr. Swathi Reis LYMPH # 1.4 103/ul Normal 1.2-3.8 [facility] Comment on above: Performed By: #### C BC ####[facility] Gertckkgop615[address] [place], [place] [address]Dr. Swathi Reis Lymphocytes/100 WBC (Bld) 10.1 % Critically low 20.5-60.0 [facility] Comment on above: Performed By: #### C BC ####[facility] [address]zamilmiz[address] [place] [id number]. Swathi Reis MANUAL DIFF REQ NO Normal [facility] Comment on above: Performed By: #### C BC ####[facility] Jaofnmgbdy5565 [place] [id number]. Swathi Reis MCH (RBC) [Entitic mass] 29.2 pg Normal 26.7-34.0 [facility] Comment on above: Performed By: #### C BC ####[facility] Ojjkldobzu6851 [place] [address]Dr. Swathi Reis MCHC (RBC) [Mass/Vol] 32.8 g/dL Normal 29.9-35.2 [facility] Comment on above: Performed By: #### C BC ####[facility] Vlmevyxesq12[address] [place], [place] [address]Dr. Swathi Reis MCV (RBC) [Entitic vol] 89.0 fL Normal 81.0-99.0 [facility] Comment on above: Performed By: #### C BC ####[facility] Ocxunxsllw[address] [place], [place] [id number]. Swathi Reis MONO # 1.1 103/ul Critically high 0.3-0.8 [facility] Comment on above: Performed By: #### C BC ####[facility] Dclpsmpptk207[address] [place], [place] [address]Dr. Swathi Reis Monocytes/100 WBC (Bld) 8.3 % Normal 1.7-12.0 [facility] Comment on above: Performed By: #### C BC ####[facility] Pdmtoqpwxv6674 [place] [address]Dr. Swathi Reis NEUT # 11.0 103/ul Critically high 1.4-6.5 [facility] Comment on above: Performed By: #### C BC ####[facility] Ckqsrpmydb1495 [place] [address]Dr. Swathi Reis Neutrophils/100 WBC (Bld) 79.9 % Critically high 43.0-75.0 [facility] Comment on above: Performed By: #### C BC ####[facility] Dshfmpmynn7825 [place], [place] [address]Iw. Swathi Reis Platelet mean volume (Bld) [Entitic vol] 10.7 fL Normal 9.5-13.5 [facility] Comment on above: Performed By: #### C BC ####[facility] Jjorvrdxdl2306 [place], [place] [address]Jj. Swathi Reis PLT 408 103/ul Normal 150-450 [facility] Comment on above: Performed By: #### C BC ####[facility] Bfhphgrotc0417 [place], [place] [address]Oy. Swathi Reis RBC 3.83 106/ul Critically low 4.20-5.40 [facility] Comment on above: Performed By: #### C BC ####[facility] Uoluzvwnnq7844 [place], [place] [address]Uw. Swathi Reis WBC 13.8 103/ul Critically high 4.0-11.0 [facility] Comment on above: Performed By: #### C BC ####[facility] Wlyszifzra1216 [place], [place] [address]Bi. Swathi Reis Covid-19 PCR ([facility])on 07-25 SARS-CoV-2 (COVID-19) RNA ÓSCAR+probe Ql (Unsp spec) Not detected Normal NOT DETECTED [facility] Comment on above: Result Comment: When diagnostic [...] for this test is supported by the [place] of Health and Human Service's declaration that [...] be used). Performed By: #### C VDTBH ####[facility] Qgnwnctrmd[address] [place], [place] [address]Dr. Swathi Reis D-DIMERon 08-18-2022 D-DIMER 1.83 mg/L FEU Critically high <=0.59 [facility] Comment on above: Performed By: #### D DIM ####[facility] Bjgjgpuoms8084 [place] [address]Dr. Swathi Reis D-DIMER COMMENTS SEE BELOW Normal [facility] Comment on above: Result Comment: Incr eases [...] generalized hospitalization. Performed By: #### D DIM ####[facility] Qoiualkqpo[address] [place], [place] [address]Dr. Swathi Reis INFLUENZA A AND B AGon 08-18 INFLUENZA A AG Negative Normal NEGATIVE SEE COMMENT [facility] Comment on above: Performed By: #### R SV, INFLUAB ####[facility] Ohucislwll[address] [place], [place] [address]Dr. Swathi Reis INFLUENZA B AG Negative Normal NEGATIVE SEE COMMENT [facility] Comment on above: Performed By: #### R SV, INFLUAB ####[facility] Eouemtfqil294[address] [place], [place] [address]Dr. Swathi Reis INFLUPOSH SEE BELOW Normal [facility] Comment on above: Result Comment: NOTE : Live attenuated influenzae vaccine viruses can cause a positive result for a rapid influenza diagnostic test if administered up to 7 days prior to rapid testing. Performed By: #### R SV, INFLUAB ####[facility] Lxhvqvaikn[address] [place], [place] [address]Dr. Swathi Reis INFLUPOSHB SEE BELOW Normal [facility] Comment on above: Result Comment: NOTE : Live attenuated influenzae vaccine viruses can cause a positive result for a rapid influenza diagnostic test if administered up to 7 days prior to rapid testing. Performed By: #### R SV, INFLUAB ####[facility] Fbnuogqbey5361 [place] [address]Dr. Swathi Reis INTERNAL CONTROLS Within Normal Limits Normal Wi thin Normal Limits [facility] Comment on above: Performed By: #### R SV, INFLUAB ####[facility] Qlcqqgxxaw607[address] [place], [place] [address]Dr. Swathi Reis LACTATE/LACTIC ACIDon 2021 Lactate [Moles/Vol] 1.9 mmol/L Normal 0.4-1.9 [facility] Comment on above: Performed By: #### L ACT ####[facility] Yqvesezoba33[address] [place], [place] [address]Dr. Swathi Reis PROF CHEM 8 (BAS METB)on Anion gap [Moles/Vol] 13.9 mmol/L Normal [facility] Comment on above: Performed By: #### RACQUEL Gonsales MP ####[facility] Kivtxqcukd9[address] [place], [place] [address]Dr. Swathi Reis Calcium [Mass/Vol] 9.9 mg/dL Normal 8.5-10.1 [facility] Comment on above: Performed By: #### B FAY, CMADM ####[facility] Fihjqljrgf9[address] [place], [place] [address]Dr. Swathi Reis Chloride [Moles/Vol] 102 mmol/L Normal 98-107 [facility] Comment on above: Performed By: #### B FAY, CMADM ####[facility] Fjksybqvab16[address] [place], [place] [address]Dr. Swathi Reis CO2 [Moles/Vol] 29.6 mmol/L Normal 21.0-32.0 [facility] Comment on above: Performed By: #### Dru APONTE, CMADM ####[facility] Jngaykjqql4[address] [place], [place] [address]Dr. Swathi Reis Creatinine [Mass/Vol] 1.61 mg/dL Critically high 0.55-1.02 [facility] Comment on above: Performed By: #### RACQUEL Gonsales MP ####[facility] Gbzjocvsbn30[address] [place] [address]Dr. Swathi Reis EGFR-AF ANGOLAN 38 mL/min/1.73m2 Critically low >=60 [facility] Comment on above: Performed By: #### RACQUEL Gonsales MP ####[facility] Utumsvsjip[address] [place] [address]Dr. Swathi Reis EGFR-NON AF ANGOLAN 31 mL/min/1.73m2 Critically low >=60 [facility] Comment on above: Performed By: #### RACQUEL Gonsales MP ####[facility] Ottncevghe35[address] [place], [place] [address]Dr. Swathi Reis Glucose [Mass/Vol] 192 mg/dL Critically high 74-106 [facility] Comment on above: Performed By: #### RACQUEL Gonsales MP ####[facility] Joxznfozse6270[address] [place], [place] [address]Dr. Swathi Reis Potassium [Moles/Vol] 4.5 mmol/L Normal 3.5-5.1 [facility] Comment on above: Performed By: #### RACQUEL Gonsales MP ####[facility] Gmfgznxqpb16[address] [place], [place] [address]Dr. Swathi Reis Sodium [Moles/Vol] 141 mmol/L Normal 136-145 [facility] Comment on above: Performed By: #### RACQUEL Gonsales MP ####[facility] Fenmihsyui8[address] [place], [place] [address]Dr. Swathi Reis Urea nitrogen [Mass/Vol] 27.0 mg/dL Critically high 7.0-18.0 [facility] Comment on above: Performed By: #### RACQUEL Gonsales MP ####[facility] Tqhsbxyxvg7572 [place] [address]Dr. Swathi Reis Urea nitrogen/Creatinine [Mass ratio] 16.8 mg/mg Normal [facility] Comment on above: Performed By: #### RACQUEL Gonsales MP ####[facility] Jdpjstqqah7080 [place] [address]Dr. Swathi Reis RSVon 08-18-2022 RSV AG Negative Normal NEGATIVE [facility] Comment on above: Performed By: #### R SV, INFLUAB ####[facility] Kpaumeuxxc32[address] [place], [place] [address]Dr. Swathi Reis BNPon 07-12-2022 Natriuretic peptide B (Bld) [Mass/Vol] 5375.0 pg/mL Critically high <=1,800.0 [facility] Comment on above: Performed By: #### B ANODE MACHINE OPERATOR, CMP ####[facility] Gkrenjwsjx05[address] [place], [place] [address]Dr. Swathi Reis CBC AUTO DIFFon 07-12-2022 BASO # 0.1 103/ul Normal 0.0-0.1 [facility] Comment on above: Performed By: #### C BC ####[facility] Ibukardnsd778[address] [place], [place] [address]Dr. Swathi Reis Basophils/100 WBC (Bld) 0.7 % Normal 0.2-2.0 [facility] Comment on above: Performed By: #### C BC ####[facility] Jahvricljc[address] [place], [place] [address]Dr. Swathi Reis EO # 0.3 103/ul Normal 0.0-0.7 [facility] Comment on above: Performed By: #### C BC ####[facility] Pmdmxvnzsm34[address] [place], [place] [address]Dr. Swathi Reis Eosinophils/100 WBC (Bld) 3.2 % Normal 0.9-7.0 [facility] Comment on above: Performed By: #### C BC ####[facility] Eagknezxhm4[address] [place], [place] [address]Dr. Swathi Reis Erythrocyte distribution width (RBC) [Ratio] 13.3 % Normal 11.0-15.0 [facility] Comment on above: Performed By: #### C BC ####[facility] Goztlnulbp8206[address] [place], [place] [address]Dr. Swathi Reis Hematocrit (Bld) [Volume fraction] 29.9 % Critically low 36.0-48.0 [facility] Comment on above: Performed By: #### C BC ####[facility] Gesfinagwe1334 [place] [address]DrOtto Reis Hemoglobin (Bld) [Mass/Vol] 9.7 g/dL Critically low 12.0-16.0 [facility] Comment on above: Performed By: #### C BC ####[facility] Iglenrvlln0421 [place] [address]DrOtto Reis IG # 0.05 10e3/ul Critically high 0.00-0.03 [facility] Comment on above: Performed By: #### C BC ####[facility] Hgyoisslhu5357 [place] [address]DrOtto Reis IG % 0.5 % Normal 0.0-0.5 [facility] Comment on above: Performed By: #### C BC ####[facility] Pfhgocasms7[address] [place], [place] [address]DrOtto Reis LYMPH # 1.5 103/ul Normal 1.2-3.8 [facility] Comment on above: Performed By: #### C BC ####[facility] Cqplwwomtu3909 [place] [address]DrOtto Reis Lymphocytes/100 WBC (Bld) 14.0 % Critically low 20.5-60.0 [facility] Comment on above: Performed By: #### C BC ####[facility] Nepqcrhffr4629 [place] [address]DrOtto Reis MANUAL DIFF REQ NO Normal [facility] Comment on above: Performed By: #### C BC ####[facility] Qpyavphdaq1599 [place] [id number] Reis MCH (RBC) [Entitic mass] 30.1 pg Normal 26.7-34.0 [facility] Comment on above: Performed By: #### C BC ####[facility] Obidoojwmt9154 [place] [address]DrOtto Reis MCHC (RBC) [Mass/Vol] 32.4 g/dL Normal 29.9-35.2 [facility] Comment on above: Performed By: #### C BC ####[facility] Gymxqtjqkm6629 [place] [address]DrOtto Swathi Chato MCV (RBC) [Entitic vol] 92.9 fL Normal 81.0-99.0 [facility] Comment on above: Performed By: #### C BC ####[facility] Oalfxgofqc0309 [place] [address]DrOtto Reis MONO # 1.2 103/ul Critically high 0.3-0.8 [facility] Comment on above: Performed By: #### C BC ####[facility] Yvpzzfwxvk5021 [place] [address]DrOtto Reis Monocytes/100 WBC (Bld) 11.1 % Normal 1.7-12.0 [facility] Comment on above: Performed By: #### C BC ####[facility] Bzylkztbbz[address] [place], [place] [address]DrOtto Reis NEUT # 7.5 103/ul Critically high 1.4-6.5 [facility] Comment on above: Performed By: #### C BC ####[facility] Jwvttqxaim85[address] [place], [place] [address]DrOtto Reis Neutrophils/100 WBC (Bld) 70.5 % Normal 43.0-75.0 [facility] Comment on above: Performed By: #### C BC ####[facility] Jxbobjkeza22[address] [place], [place] [address]DrOtto Reis Platelet mean volume (Bld) [Entitic vol] 10.7 fL Normal 9.5-13.5 [facility] Comment on above: Performed By: #### C BC ####[facility] Ntddwcodnl36[address] [place], [place] [address]DrOtto Reis PLT 291 103/ul Normal 150-450 [facility] Comment on above: Performed By: #### C BC ####[facility] Lyefazarmy2378 [place] [address]DrOtto Reis RBC 3.22 106/ul Critically low 4.20-5.40 [facility] Comment on above: Performed By: #### C BC ####[facility] Qhbbwjbvtu0565 [place] [address]Dr. Swathi Reis WBC 10.6 103/ul Normal 4.0-11.0 [facility] Comment on above: Performed By: #### C BC ####[facility] Pvtktblssf4552 [place] [address]Dr. Swathi Reis POINT OF CARE GLUCOSEon 06-24 0-2021 Glucose [Mass/Vol] 191 mg/dL Critically high 74-106 [facility] Comment on above: Performed By: #### P OCGLUC ####[facility] Heskqevnts[address] [place], [place] [address]Dr. Swathi Reis PROF 14(COMP METB)on 022 Albumin [Mass/Vol] 2.4 g/dL Critically low 3.4-5.0 [facility] Comment on above: Performed By: #### B ANODE MACHINE OPERATOR, CMP ####[facility] Iwxcyhfrtb24[address] [place], [place] [address]Dr. Swathi Reis Albumin/Globulin [Mass ratio] 0.6 {ratio} Normal [facility] Comment on above: Performed By: #### B ANODE MACHINE OPERATOR, CMP ####[facility] Srchqzczzh9833[address] [place], [place] [address]Dr. Swathi Reis ALP [Catalytic activity/Vol] 73 U/L Normal 46-116 [facility] Comment on above: Performed By: #### B ANODE MACHINE OPERATOR, CMP ####[facility] Vukvrlcjyq1926 [place] [address]Dr. Swathi Reis ALT [Catalytic activity/Vol] 11 U/L Critically low 14-59 [facility] Comment on above: Performed By: #### B ANODE MACHINE OPERATOR, CMP ####[facility] Wquhexciov[address] [place], [place] [address]Dr. Swathi Reis Anion gap [Moles/Vol] 7.7 mmol/L Normal [facility] Comment on above: Performed By: #### B ANODE MACHINE OPERATOR, CMP ####[facility] Gwlirsumpa9[address] [place], [place] [address]Dr. Swathi Reis AST [Catalytic activity/Vol] 15 U/L Normal 15-37 [facility] Comment on above: Performed By: #### B ANODE MACHINE OPERATOR, CMP ####[facility] Vsymvxpsgo9954[address] [place], [place] [address]Dr. Swathi Reis Bilirubin [Mass/Vol] 0.3 mg/dL Normal 0.2-1.0 [facility] Comment on above: Performed By: #### B ANODE MACHINE OPERATOR, CMP ####[facility] Bkghukjral[address] [place], [place] [address]Dr. Swathi Reis Calcium [Mass/Vol] 9.3 mg/dL Normal 8.5-10.1 [facility] Comment on above: Performed By: #### B ANODE MACHINE OPERATOR, CMP ####[facility] Iivtnsesgh7126[address] [place], [place] [address]Dr. Swathi Reis Chloride [Moles/Vol] 104 mmol/L Normal 98-107 [facility] Comment on above: Performed By: #### B ANODE MACHINE OPERATOR, CMP ####[facility] Shvbyyniyx12[address] [place], [place] [address]Dr. Swathi Reis CO2 [Moles/Vol] 30.2 mmol/L Normal 21.0-32.0 [facility] Comment on above: Performed By: #### B ANODE MACHINE OPERATOR, CMP ####[facility] Xuzitqmhlw649[address] [place], [place] [address]Dr. Swathi Reis Creatinine [Mass/Vol] 1.69 mg/dL Critically high 0.55-1.02 [facility] Comment on above: Performed By: #### B ANODE MACHINE OPERATOR, CMP ####[facility] Noejhqwrgx9[address] [place], [place] [address]Dr. Swathi Reis EGFR-AF ANGOLAN 36 mL/min/1.73m2 Critically low >=60 [facility] Comment on above: Performed By: #### B ANODE MACHINE OPERATOR, CMP ####[facility] Ynplzbrtfk5[address] [place], [place] [address]Dr. Swathi Reis EGFR-NON AF ANGOLAN 29 mL/min/1.73m2 Critically low >=60 [facility] Comment on above: Performed By: #### B ANODE MACHINE OPERATOR, CMP ####[facility] Ppdtgfwbrk12[address] [place], [place] [address]Dr. Swathi Reis Globulin (S) [Mass/Vol] 4.0 g/dL Normal [facility] Comment on above: Performed By: #### B ANODE MACHINE OPERATOR, CMP ####[facility] Jszbgrvwwv087[address] [place], [place] [address]Dr. Swathi Reis Glucose [Mass/Vol] 110 mg/dL Critically high 74-106 [facility] Comment on above: Performed By: #### B ANODE MACHINE OPERATOR, CMP ####[facility] Caxjxhnqev97[address] [place], [place] [address]Dr. Swathi Reis Potassium [Moles/Vol] 3.9 mmol/L Normal 3.5-5.1 [facility] Comment on above: Performed By: #### B ANODE MACHINE OPERATOR, CMP ####[facility] Tncildrwcp96[address] [place], [place] [address]Dr. Swathi Reis Protein [Mass/Vol] 6.4 g/dL Normal 6.4-8.2 [facility] Comment on above: Performed By: #### B ANODE MACHINE OPERATOR, CMP ####[facility] Zrmajoydqg97[address] [place], [place] [address]Dr. Swathi Reis Sodium [Moles/Vol] 138 mmol/L Normal 136-145 [facility] Comment on above: Performed By: #### B ANODE MACHINE OPERATOR, CMP ####[facility] Iqrhfkzppp76[address] [place], [place] [address]Dr. Swathi Reis Urea nitrogen [Mass/Vol] 21.0 mg/dL Critically high 7.0-18.0 [facility] Comment on above: Performed By: #### B ANODE MACHINE OPERATOR, CMP ####[facility] Hyzqlgsusj95[address] [place], [place] [address]Dr. Swathi Reis Urea nitrogen/Creatinine [Mass ratio] 12.4 mg/mg Normal [facility] Comment on above: Performed By: #### B ANODE MACHINE OPERATOR, CMP ####[facility] Sgoltzmocs8[address] [place], [place] [address]Dr. Swathi Reis BNPon 07-11-2022 Natriuretic peptide B (Bld) [Mass/Vol] 2516.0 pg/mL Critically high <=1,800.0 [facility] Comment on above: Performed By: #### B ANODE MACHINE OPERATOR, CMP ####[facility] Hawsablruq0664[address] [place], [place] [address]Dr. Swathi Reis C. DIFF PCRon 07-11-2022 C. DIFFICILE PCR Positive Critically abnormal NEGATIVE [facility] Comment on above: Performed By: #### C DIFPOC ####[facility] Piynplyvtk[address] [place], [place] [address]Dr. Swathi Reis CBC AUTO DIFFon 07-11-2022 BASO # 0.0 103/ul Normal 0.0-0.1 [facility] Comment on above: Performed By: #### C BC ####[facility] Qqyiphoysr[address] [place], [place] [address]Dr. Swathi Reis Basophils/100 WBC (Bld) 0.4 % Normal 0.2-2.0 [facility] Comment on above: Performed By: #### C BC ####[facility] Izvjocbxwk[address] [place], [place] [address]Dr. Swathi Reis EO # 0.2 103/ul Normal 0.0-0.7 [facility] Comment on above: Performed By: #### C BC ####[facility] Xtubndvsox54[address] [place], [place] [address]Dr. Swathi Reis Eosinophils/100 WBC (Bld) 2.2 % Normal 0.9-7.0 [facility] Comment on above: Performed By: #### C BC ####[facility] Hxqstfvzqq[address] [place], [place] [address]Dr. Swathi Reis Erythrocyte distribution width (RBC) [Ratio] 13.4 % Normal 11.0-15.0 [facility] Comment on above: Performed By: #### C BC ####[facility] Vzkrxdwexq7[address] [place], [place] [address]Dr. Swathi Reis Hematocrit (Bld) [Volume fraction] 27.0 % Critically low 36.0-48.0 [facility] Comment on above: Performed By: #### C BC ####[facility] [address]zf[address]ngjv5[address] [place] [address]Dr. Swathi Reis Hemoglobin (Bld) [Mass/Vol] 8.5 g/dL Critically low 12.0-16.0 [facility] Comment on above: Performed By: #### C BC ####[facility] Wottpfqzhk4084 [place] [id number]. Swathi Reis IG # 0.07 10e3/ul Critically high 0.00-0.03 [facility] Comment on above: Performed By: #### C BC ####[facility] Eldmrwjpvy2567 [place] [address]Dr. Swathi Reis IG % 0.6 % Critically high 0.0-0.5 [facility] Comment on above: Performed By: #### C BC ####[facility] Zznmagmfun2748 [place] [address]Dr. Swathi Reis LYMPH # 1.2 103/ul Normal 1.2-3.8 [facility] Comment on above: Performed By: #### C BC ####[facility] Wnifmdbonm9455 [place] [address]Dr. Swathi Reis Lymphocytes/100 WBC (Bld) 10.5 % Critically low 20.5-60.0 [facility] Comment on above: Performed By: #### C BC ####[facility] Ahhdblhfyj[address] [place] [address]Dr. Swathi Reis MANUAL DIFF REQ NO Normal [facility] Comment on above: Performed By: #### C BC ####[facility] Bymkkwukiv60[address] [place] [address]Dr. Swathi Reis MCH (RBC) [Entitic mass] 29.6 pg Normal 26.7-34.0 [facility] Comment on above: Performed By: #### C BC ####[facility] Outynpobgn7[address] [place], [place] [address]Dr. Swathi Reis MCHC (RBC) [Mass/Vol] 31.5 g/dL Normal 29.9-35.2 [facility] Comment on above: Performed By: #### C BC ####[facility] Vjgxwdtzbc5982 [place] [address]Dr. Swathi Reis MCV (RBC) [Entitic vol] 94.1 fL Normal 81.0-99.0 [facility] Comment on above: Performed By: #### C BC ####[facility] Pmohedcspu2[address] [place] [address]Dr. Swathi Reis MONO # 1.1 103/ul Critically high 0.3-0.8 [facility] Comment on above: Performed By: #### C BC ####[facility] Pdfvfahsyb[address] [place], [place] [address]Dr. Swathi Reis Monocytes/100 WBC (Bld) 9.9 % Normal 1.7-12.0 [facility] Comment on above: Performed By: #### C BC ####[facility] Evtuvpyzam[address] [place], [place] [address]Dr. Swathi Reis NEUT # 8.4 103/ul Critically high 1.4-6.5 [facility] Comment on above: Performed By: #### C BC ####[facility] I[address]jiiutxem[address] [place], [place] [address]Dr. Swathi Reis Neutrophils/100 WBC (Bld) 76.4 % Critically high 43.0-75.0 [facility] Comment on above: Performed By: #### C BC ####[facility] Skyfymicss[address] [place], [place] [address]Dr. Swathi Reis Platelet mean volume (Bld) [Entitic vol] 10.6 fL Normal 9.5-13.5 [facility] Comment on above: Performed By: #### C BC ####[facility] Pnzhvgqnf[address] [place], [place] [address]Dr. Swathi Reis PLT 248 103/ul Normal 150-450 [facility] Comment on above: Performed By: #### C BC ####[facility] Atzcbmzofn[address] [place], [place] [address]Dr. Swathi Reis RBC 2.87 106/ul Critically low 4.20-5.40 [facility] Comment on above: Performed By: #### C BC ####[facility] Bpgjzserkj[address] [place], [place] [address]Dr. Swathi Reis WBC 11.0 103/ul Normal 4.0-11.0 [facility] Comment on above: Performed By: #### C BC ####[facility] Z[address]zfylgzfd[address] [place], [place] [address]Dr. Swathi Reis GI PANEL (PCR)on 07-11-2022 Adenovirus F 40/41 Not detected Normal NOT DETECTED [facility] Comment on above: Performed By: #### G IPANEL ####[facility] Mchrnnfpyo[address] [place], [place] [address]Dr. Swathi Reis Astrovirus Not detected Normal NOT DETECTED [facility] Comment on above: Performed By: #### G IPANEL ####[facility] M[address]rluhfrc[address] [place], [place] [address]Dr. Swathi Reis C. Diff toxin A/B Detected Critically abnormal NOT DETECTED [facility] Comment on above: Performed By: #### G IPANEL ####[facility] Idmejjbpiu5[address] [place], [place] [address]Dr. Swathi Reis Campylobacter Not detected Normal NOT DETECTED [facility] Comment on above: Performed By: #### G IPANEL ####[facility] Zcrkelvroc8[address] [place], [place] [address]Dr. Inessatracy Reis Cryptosporidium Not detected Normal NOT DETECTED [facility] Comment on above: Performed By: #### G IPANEL ####[facility] Ilkvxbhhkz[address] [place], [place] [address]Dr. Swathi Reis Cyclos. Cayetanensis Not detected Normal NOT DETECTED [facility] Comment on above: Performed By: #### G IPANEL ####[facility] Vtginqjudj5524[address] [place], [place] [address]Dr. Swathi Reis E. Coli O157 Not Applicable Normal Not Applicable [facility] Comment on above: Performed By: #### G IPANEL ####[facility] Dlbyexzmnb5[address] [place], [place] [address]Dr. Inessatracy Reis E. histolytica Not detected Normal NOT DETECTED [facility] Comment on above: Performed By: #### G IPANEL ####[facility] [address]qtyb[address] [place] [address]Dr. Swathi Reis EAEC Not detected Normal NOT DETECTED [facility] Comment on above: Performed By: #### G IPANEL ####[facility] Ivihzfxsjy[address] [place], [place] [address]Dr. Swathi Reis EIEC Not detected Normal NOT DETECTED [facility] Comment on above: Performed By: #### G IPANEL ####[facility] Ftwqenffss[address] [place], [place] [address]Dr. Swathi Reis EPEC Not detected Normal NOT DETECTED [facility] Comment on above: Performed By: #### G IPANEL ####[facility] Eouapzwzrf1314[address] [place], [place] [address]Dr. Swathi Reis ETEC Not detected Normal NOT DETECTED [facility] Comment on above: Performed By: #### G IPANEL ####[facility] Rpiushznaw06[address] [place], [place] [address]Dr. Swathi Reis G. Lamblia Not detected Normal NOT DETECTED [facility] Comment on above: Performed By: #### G IPANEL ####[facility] Rwpnrdvvsn[address] [place], [place] [address]Dr. Swathi Reis GIPANEL CONTROLS PASSED Normal The [facility] Comment on above: Performed By: #### G IPANEL ####[facility] Mfvxbyerfi365[address] [place], [place] [address]Dr. Swathi Reis GIPNL RICHELLE HEADER GI PANEL BACTERIA Normal [facility] Comment on above: Performed By: #### G IPANEL ####[facility] Aozrxudhbs2920[address] [place], [place] [address]Dr. Swathi Reis GIPNLHD ECOLI GI PANEL DIARRHEAGEN IC E.COLI / SHIGELLA Normal [facility] Comment on above: Performed By: #### G IPANEL ####[facility] Zspgdzpssg[address] [place], [place] [address]Dr. Swathi Reis GIPNLHD INFO SEE BELOW Normal [facility] Comment on above: Result Comment: EAEC - Enteroaggregative E. Coli EPEC- Enteropathogenic E. Coli ETEC- Enterotoxigenic E. Coli lt/st STEC- Shigella-like toxin-producing E. Coli stx1/stx2 EIEC- Shigella/Enteroinvasive E. Coli Performed By: #### G IPANEL ####[facility] Apwxxknpre94[address] [place], [place] [address]Dr. Swathi Reis GIPNLHD PARASITES GI PANEL PARASITES Normal [facility] Comment on above: Performed By: #### G IPANEL ####[facility] Rgqiomtecs[address] [place], [place] [address]Dr. Inessatracy Reis GIPNLHD VIRUS GI PANEL VIRUSES Normal The [facility] Comment on above: Performed By: #### G IPANEL ####[facility] Nqeoifgcag249[address] [place], [place] [address]Dr. Swathi Reis Norovirus GI/GII Not detected Normal NOT DETECTED [facility] Comment on above: Performed By: #### G IPANEL ####[facility] Hgnziyyubt364[address] [place], [place] [address]Dr. Swathi Reis P. Shigelloides Not detected Normal NOT DETECTED [facility] Comment on above: Performed By: #### G IPANEL ####[facility] Ryosqzcwhg335[address] [place], [place] [address]Dr. Swathi Reis Rotavirus A Not detected Normal NOT DETECTED [facility] Comment on above: Performed By: #### G IPANEL ####[facility] Cyvggfgyxg8467[address] [place], [place] [address]Dr. Swathi Reis Salmonella Not detected Normal NOT DETECTED [facility] Comment on above: Performed By: #### G IPANEL ####[facility] Bcbfagiuyd06[address] [place], [place] [address]Dr. Swathi Reis Sapovirus Not detected Normal NOT DETECTED [facility] Comment on above: Performed By: #### G IPANEL ####[facility] Ekwhekdqdm74[address] [place], [place] [address]Dr. Swathi Reis STEC Detected Critically abnormal NOT DETECTED [facility] Comment on above: Performed By: #### G IPANEL ####[facility] Cwbfzeqqve1336[address] [place], [place] [address]Dr. Swathi Reis Vibrio Not detected Normal NOT DETECTED [facility] Comment on above: Performed By: #### G IPANEL ####[facility] Vlgmmsepyt[address] [place] [address]Dr. Swathi Reis Vibrio Cholera Not detected Normal NOT DETECTED [facility] Comment on above: Performed By: #### G IPANEL ####[facility] I[address]ilgrlrio[address] [place] [address]Dr. Swathi Reis Y. Enterocolitica Not detected Normal NOT DETECTED [facility] Comment on above: Performed By: #### G IPANEL ####[facility] Rdopqliwhj360[address] [place] [address]Dr. Swathi Reis POINT OF CARE GLUCOSEon 06-23 Glucose [Mass/Vol] 120 mg/dL Critically high 74-106 [facility] Comment on above: Performed By: #### P OCGLUC ####[facility] Tjmqtwntyg5[address] [place], [place] [address]Dr. Swathi Resi Glucose [Mass/Vol] 193 mg/dL Critically high 74-106 [facility] Comment on above: Performed By: #### P OCGLUC ####[facility] Xysjefubgw[address] [place], [place] [address]Dr. Swathi Reis PROF 14(COMP METB)on 022 Albumin [Mass/Vol] 2.4 g/dL Critically low 3.4-5.0 [facility] Comment on above: Performed By: #### B ANODE MACHINE OPERATOR, CMP ####[facility] Unfauoaiqt43[address] [place], [place] [address]Dr. Swathi Reis Albumin/Globulin [Mass ratio] 0.7 {ratio} Normal [facility] Comment on above: Performed By: #### B ANODE MACHINE OPERATOR, CMP ####[facility] Puryodhwkc[address] [place], [place] [address]Dr. Swathi Reis ALP [Catalytic activity/Vol] 70 U/L Normal 46-116 [facility] Comment on above: Performed By: #### B ANODE MACHINE OPERATOR, CMP ####[facility] [address]vhdkvo[address] [place] [address]Dr. Swathi Reis ALT [Catalytic activity/Vol] 12 U/L Critically low 14-59 [facility] Comment on above: Performed By: #### B ANODE MACHINE OPERATOR, CMP ####[facility] [address] [place] [id number]. Swathi Reis Anion gap [Moles/Vol] 8.7 mmol/L Normal [facility] Comment on above: Performed By: #### B ANODE MACHINE OPERATOR, CMP ####[facility] C[address]luzscxx23[address] [place] [address]Dr. Swathi Reis AST [Catalytic activity/Vol] 11 U/L Critically low 15-37 [facility] Comment on above: Performed By: #### B ANODE MACHINE OPERATOR, CMP ####[facility] Zyjmucgdzd8769 [place] [address]Dr. Swathi Reis Bilirubin [Mass/Vol] 0.3 mg/dL Normal 0.2-1.0 [facility] Comment on above: Performed By: #### B ANODE MACHINE OPERATOR, CMP ####[facility] Prxjyxqvjy7[address] [place], [place] [address]Dr. Swathi Reis Calcium [Mass/Vol] 9.1 mg/dL Normal 8.5-10.1 [facility] Comment on above: Performed By: #### B ANODE MACHINE OPERATOR, CMP ####[facility] Coihtzwuei14[address] [place], [place] [address]Dr. Swathi Chato Chloride [Moles/Vol] 107 mmol/L Normal 98-107 [facility] Comment on above: Performed By: #### B ANODE MACHINE OPERATOR, CMP ####[facility] Rztwcuggup7427[address] [place], [place] [address]Dr. Swathi Reis CO2 [Moles/Vol] 27.6 mmol/L Normal 21.0-32.0 [facility] Comment on above: Performed By: #### B ANODE MACHINE OPERATOR, CMP ####[facility] Cfvwxichli4388[address] [place], [place] [address]Dr. Swathi Reis Creatinine [Mass/Vol] 1.72 mg/dL Critically high 0.55-1.02 [facility] Comment on above: Performed By: #### B ANODE MACHINE OPERATOR, CMP ####[facility] Vofwyvizqy[address]25[address] [place], [place] [address]Dr. Swathi Chato EGFR-AF ANGOLAN 35 mL/min/1.73m2 Critically low >=60 [facility] Comment on above: Performed By: #### B ANODE MACHINE OPERATOR, CMP ####[facility] Fwlnnpkmfm[address] [place], [place] [address]Dr. Swathi Reis EGFR-NON AF ANGOLAN 29 mL/min/1.73m2 Critically low >=60 [facility] Comment on above: Performed By: #### B ANODE MACHINE OPERATOR, CMP ####[facility] Wyzrwypops168[address] [place], [place] [address]Dr. Swathi Chato Globulin (S) [Mass/Vol] 3.6 g/dL Normal [facility] Comment on above: Performed By: #### B ANODE MACHINE OPERATOR, CMP ####[facility] Hidcbcuohx26[address] [place], [place] [address]Dr. Inessatracy Chato Glucose [Mass/Vol] 119 mg/dL Critically high 74-106 [facility] Comment on above: Performed By: #### B ANODE MACHINE OPERATOR, CMP ####[facility] Ztbggrufuo[address] [place], [place] [address]Dr. Swathi Chato Potassium [Moles/Vol] 4.3 mmol/L Normal 3.5-5.1 [facility] Comment on above: Performed By: #### B ANODE MACHINE OPERATOR, CMP ####[facility] R[address]msyevhlp10[address] [place], [place] [address]Dr. Swathi Chato Protein [Mass/Vol] 6.0 g/dL Critically low 6.4-8.2 [facility] Comment on above: Performed By: #### B ANODE MACHINE OPERATOR, CMP ####[facility] Kjaptwxbgs5[address] [place], [place] [address]Dr. Swathi Chato Sodium [Moles/Vol] 139 mmol/L Normal 136-145 [facility] Comment on above: Performed By: #### B ANODE MACHINE OPERATOR, CMP ####[facility] Vjgcmmtinp[address] [place], [place] [address]Dr. Swathi Chato Urea nitrogen [Mass/Vol] 23.0 mg/dL Critically high 7.0-18.0 [facility] Comment on above: Performed By: #### B ANODE MACHINE OPERATOR, CMP ####[facility] Y[address]zkrknc[address] [place], [place] [address]Dr. Inessatracy Reis Urea nitrogen/Creatinine [Mass ratio] 13.4 mg/mg Normal [facility] Comment on above: Performed By: #### B ANODE MACHINE OPERATOR, CMP ####[facility] Luvkcdcctf70[address] [place], [place] [address]Dr. Swathi Reis BNPon 07-10-2022 Natriuretic peptide B (Bld) [Mass/Vol] 2243.0 pg/mL Critically high <=1,800.0 [facility] Comment on above: Performed By: #### B ANODE MACHINE OPERATOR, CMP ####[facility] Bnvpcmzdme69[address] [place], [place] [address]Dr. Swathi Chato CBC AUTO DIFFon 07-10-2022 BASO # 0.1 103/ul Normal 0.0-0.1 [facility] Comment on above: Performed By: #### C BC ####[facility] Gbfhenxgla476[address] [place], [place] [address]Dr. Swathi Reis Basophils/100 WBC (Bld) 0.7 % Normal 0.2-2.0 [facility] Comment on above: Performed By: #### C BC ####[facility] Nhfkuqlkgu[address] [place], [place] [address]Dr. Swathi Reis EO # 0.2 103/ul Normal 0.0-0.7 [facility] Comment on above: Performed By: #### C BC ####[facility] Ywicachuid3[address] [place], [place] [address]Dr. Swathi Reis Eosinophils/100 WBC (Bld) 2.1 % Normal 0.9-7.0 [facility] Comment on above: Performed By: #### C BC ####[facility] Dgeuizipss20[address] [place], [place] [address]Dr. Swathi Reis Erythrocyte distribution width (RBC) [Ratio] 13.5 % Normal 11.0-15.0 [facility] Comment on above: Performed By: #### C BC ####[facility] Qxtlqntevg[address] [place], [place] [address]Dr. Swathi Reis Hematocrit (Bld) [Volume fraction] 36.6 % Normal 36.0-48.0 [facility] Comment on above: Performed By: #### C BC ####[facility] [address] [place] [address]Dr. Swathi Reis Hemoglobin (Bld) [Mass/Vol] 11.3 g/dL Critically low 12.0-16.0 [facility] Comment on above: Performed By: #### C BC ####[facility] [address]wzrzmzzh[address] [place] [address]Dr. Swathi Reis IG # 0.03 10e3/ul Normal 0.00-0.03 [facility] Comment on above: Performed By: #### C BC ####[facility] Q[address]jbvtjskh[address] [place] [address]Dr. Swathi Reis IG % 0.4 % Normal 0.0-0.5 [facility] Comment on above: Performed By: #### C BC ####[facility] Qpkqdsjyad6996 [place] [address]Dr. Swathi Reis LYMPH # 0.8 103/ul Critically low 1.2-3.8 [facility] Comment on above: Performed By: #### C BC ####[facility] [address]ngsgwddo[address] [place] [address]Dr. Swathi Reis Lymphocytes/100 WBC (Bld) 10.3 % Critically low 20.5-60.0 [facility] Comment on above: Performed By: #### C BC ####[facility] Epiwwllvrj[address] [place] [address]Dr. Sawthi Reis MANUAL DIFF REQ NO Normal [facility] Comment on above: Performed By: #### C BC ####[facility] [address]yjpkdna[address] [place] [address]Dr. Swathi Reis MCH (RBC) [Entitic mass] 29.1 pg Normal 26.7-34.0 [facility] Comment on above: Performed By: #### C BC ####[facility] Uzcsulvkyo[address] [place] [address]Dr. Swathi Reis MCHC (RBC) [Mass/Vol] 30.9 g/dL Normal 29.9-35.2 [facility] Comment on above: Performed By: #### C BC ####[facility] [address]msczefh[address] [place] [address]Dr. Swathi Reis MCV (RBC) [Entitic vol] 94.3 fL Normal 81.0-99.0 [facility] Comment on above: Performed By: #### C BC ####[facility] Jwvqqkipgj4035 [place] [address]Dr. Swathi Reis MONO # 0.7 103/ul Normal 0.3-0.8 [facility] Comment on above: Performed By: #### C BC ####[facility] L[address]plwupcv4[address] [place] [address]Dr. Swathi Reis Monocytes/100 WBC (Bld) 10.2 % Normal 1.7-12.0 [facility] Comment on above: Performed By: #### C BC ####[facility] C[address]iebpkkz[address] [place], [place] [address]Dr. Swathi Reis NEUT # 5.5 103/ul Normal 1.4-6.5 [facility] Comment on above: Performed By: #### C BC ####[facility] Xokjoxgvih450[address] [place] [address]Dr. Swathi Chato Neutrophils/100 WBC (Bld) 76.3 % Critically high 43.0-75.0 [facility] Comment on above: Performed By: #### C BC ####[facility] [address]my[address] [place], [place] [address]Dr. Swathi Chato Platelet mean volume (Bld) [Entitic vol] 10.6 fL Normal 9.5-13.5 [facility] Comment on above: Performed By: #### C BC ####[facility] H[address]xviolnj[address] [place], [place] [address]Dr. Swathi Reis PLT 212 103/ul Normal 150-450 [facility] Comment on above: Performed By: #### C BC ####[facility] [address]rlzqdzsr7[address] [place] [address]Dr. Swathi Reis RBC 3.88 106/ul Critically low 4.20-5.40 [facility] Comment on above: Performed By: #### C BC ####[facility] [address]pfxexn[address] [place] [address]Dr. Swathi Reis WBC 7.3 103/ul Normal 4.0-11.0 [facility] Comment on above: Performed By: #### C BC ####[facility] Vxzvagmdvy8105 [place] [id number]. Swathi Chato POINT OF CARE GLUCOSEon 06-23 Glucose [Mass/Vol] 171 mg/dL Critically high [address] [place] [address] Comment on above: Performed By: #### P OCGLUC ####[facility] [address]fdlswvhj40[address] [place] [address]Dr. Swathi Reis Glucose [Mass/Vol] 162 mg/dL Critically high [address] [place] [address] Comment on above: Performed By: #### P OCGLUC ####[facility] Bionpnjiqo45[address] [place] [address]Dr. Swathi Chato Glucose [Mass/Vol] 176 mg/dL Critically high [address] [place] [address] Comment on above: Performed By: #### P OCGLUC ####[facility] Oqycqfdwyp7845 [place] [address]Dr. Swathi Reis Glucose [Mass/Vol] 140 mg/dL Critically high [address] [place] [address] Comment on above: Performed By: #### P OCGLUC ####[facility] Leavuguwlf[address] [place] [address]Dr. Swathi Reis Glucose [Mass/Vol] 37 mg/dL Critically low 74-106 [facility] Comment on above: Result Comment: Will Repeat Test Performed By: #### P OCGLUC ####[facility] R[address]ouhhz[address] [place], [place] [address]Dr. Swathi Reis PROF 14(COMP METB)on 022 Albumin [Mass/Vol] 2.5 g/dL Critically low 3.4-5.0 [facility] Comment on above: Performed By: #### B ANODE MACHINE OPERATOR, CMP ####[facility] Yvsmjxgnmi[address] [place], [place] [address]Dr. Swathi Reis Albumin/Globulin [Mass ratio] 0.7 {ratio} Normal [facility] Comment on above: Performed By: #### B ANODE MACHINE OPERATOR, CMP ####[facility] Xapszzoptr[address]74 [place] [address]Dr. Swathi Chato ALP [Catalytic activity/Vol] 71 U/L Normal 46-116 [facility] Comment on above: Performed By: #### B ANODE MACHINE OPERATOR, CMP ####[facility] Xmrrhgoxis2[address] [place], [place] [address]Dr. Swathi Reis ALT [Catalytic activity/Vol] 12 U/L Critically low 14-59 [facility] Comment on above: Performed By: #### B ANODE MACHINE OPERATOR, CMP ####[facility] Vzilsygztu8[address] [place], [place] [address]Dr. Swathi Reis Anion gap [Moles/Vol] 10.1 mmol/L Normal [facility] Comment on above: Performed By: #### B ANODE MACHINE OPERATOR, CMP ####[facility] [address]zwvcjnvqb[address] [place], [place] [address]Dr. Swathi Reis AST [Catalytic activity/Vol] 11 U/L Critically low 15-37 [facility] Comment on above: Performed By: #### B ANODE MACHINE OPERATOR, CMP ####[facility] Dwtaoyrbgo22[address] [place], [place] [address]Dr. Swathi Reis Bilirubin [Mass/Vol] 0.4 mg/dL Normal 0.2-1.0 [facility] Comment on above: Performed By: #### B ANODE MACHINE OPERATOR, CMP ####[facility] Mdstiyjffn[address] [place], [place] [address]Dr. Swathi Reis Calcium [Mass/Vol] 9.0 mg/dL Normal 8.5-10.1 [facility] Comment on above: Performed By: #### B ANODE MACHINE OPERATOR, CMP ####[facility] Fjorergljg[address]66[address] [place], [place] [address]Dr. Swathi Reis Chloride [Moles/Vol] 107 mmol/L Normal 98-107 [facility] Comment on above: Performed By: #### B ANODE MACHINE OPERATOR, CMP ####[facility] Snuzawwcad[address] [place], [place] [address]Dr. Swathi Reis CO2 [Moles/Vol] 28.9 mmol/L Normal 21.0-32.0 [facility] Comment on above: Performed By: #### B ANODE MACHINE OPERATOR, CMP ####[facility] Br[address]htfbxj23[address] [place], [place] [address]Dr. Swathi Reis Creatinine [Mass/Vol] 2.01 mg/dL Critically high 0.55-1.02 [facility] Comment on above: Performed By: #### B ANODE MACHINE OPERATOR, CMP ####[facility] Mmayvwwvdz[address] [place], [place] [address]Dr. Swathi Reis EGFR-AF ANGOLAN 29 mL/min/1.73m2 Critically low >=60 [facility] Comment on above: Performed By: #### B ANODE MACHINE OPERATOR, CMP ####[facility] Kwggpwmezs[address] [place], [place] [address]Dr. Swathi Reis EGFR-NON AF ANGOLAN 24 mL/min/1.73m2 Critically low >=60 [facility] Comment on above: Performed By: #### B ANODE MACHINE OPERATOR, CMP ####[facility] Ljmhbzfeil6[address] [place], [place] [address]Dr. Swathi Chato Globulin (S) [Mass/Vol] 3.6 g/dL Normal [facility] Comment on above: Performed By: #### B ANODE MACHINE OPERATOR, CMP ####[facility] Gasrxdvmrx[address] [place], [place] [address]Dr. Swathi Reis Glucose [Mass/Vol] 123 mg/dL Critically high 74-106 [facility] Comment on above: Performed By: #### B ANODE MACHINE OPERATOR, CMP ####[facility] Vincpqwhpf[address] [place], [place] [address]Dr. Swathi Reis Potassium [Moles/Vol] 4.0 mmol/L Normal 3.5-5.1 [facility] Comment on above: Performed By: #### B ANODE MACHINE OPERATOR, CMP ####[facility] Obwjzzmdqo[address] [place], [place] [address]Dr. Swathi Reis Protein [Mass/Vol] 6.1 g/dL Critically low 6.4-8.2 [facility] Comment on above: Performed By: #### B ANODE MACHINE OPERATOR, CMP ####[facility] Nltzshfhgg[address] [place], [place] [address]Dr. Swathi Reis Sodium [Moles/Vol] 142 mmol/L Normal 136-145 [facility] Comment on above: Performed By: #### B ANODE MACHINE OPERATOR, CMP ####[facility] Bqcrsobjoj[address] [place], [place] [address]Dr. Swathi Reis Urea nitrogen [Mass/Vol] 27.0 mg/dL Critically high 7.0-18.0 [facility] Comment on above: Performed By: #### B ANODE MACHINE OPERATOR, CMP ####[facility] Grhbtoxdwl[address] [place], [place] [address]Dr. Swathi Chato Urea nitrogen/Creatinine [Mass ratio] 13.4 mg/mg Normal [facility] Comment on above: Performed By: #### B ANODE MACHINE OPERATOR, CMP ####[facility] Dpbijrvkji6[address] [place], [place] [address]Dr. Swathi Chato BNPon 07-09-2022 Natriuretic peptide B (Bld) [Mass/Vol] 5933.0 pg/mL Critically high <=1,800.0 [facility] Comment on above: Performed By: #### B ANODE MACHINE OPERATOR, CMP ####[facility] Evpaierrjz0[address] [place], [place] [address]Dr. Swathi Chato CBC AUTO DIFFon 07-09-2022 BASO # 0.1 103/ul Normal 0.0-0.1 [facility] Comment on above: Performed By: #### C BC ####[facility] Ugxofmdydm[address] [place], [place] [address]Dr. Swathi Chato Basophils/100 WBC (Bld) 0.5 % Normal 0.2-2.0 [facility] Comment on above: Performed By: #### C BC ####[facility] [address]pftzn[address] [place], [place] [address]Dr. Swathi Reis EO # 0.3 103/ul Normal 0.0-0.7 [facility] Comment on above: Performed By: #### C BC ####[facility] T[address]qlbjolps[address] [place], [place] [address]Dr. Swathi Reis Eosinophils/100 WBC (Bld) 2.9 % Normal 0.9-7.0 [facility] Comment on above: Performed By: #### C BC ####[facility] Mrrbeycmus[address] [place], [place] [address]Dr. Swathi Reis Erythrocyte distribution width (RBC) [Ratio] 13.4 % Normal 11.0-15.0 [facility] Comment on above: Performed By: #### C BC ####[facility] [address]sjulh[address] [place], [place] [address]DrOtto Reis Hematocrit (Bld) [Volume fraction] 28.8 % Critically low 36.0-48.0 [facility] Comment on above: Performed By: #### C BC ####[facility] [address] [place], [place] [address]DrOtto Reis Hemoglobin (Bld) [Mass/Vol] 9.2 g/dL Critically low 12.0-16.0 [facility] Comment on above: Performed By: #### C BC ####[facility] Zqhgwnxsar[address] [place], [place] [address]DrOtto Reis IG # 0.04 10e3/ul Critically high 0.00-0.03 [facility] Comment on above: Performed By: #### C BC ####[facility] Qsupjrdxdn[address] [place], [place] [address]DrOtto Reis IG % 0.4 % Normal 0.0-0.5 [facility] Comment on above: Performed By: #### C BC ####[facility] Whoemvmxoo[address] [place], [place] [address]DrOtto Reis LYMPH # 1.2 103/ul Normal 1.2-3.8 [facility] Comment on above: Performed By: #### C BC ####[facility] Ojsbhxfjmw[address] [place], [place] [address]DrOtto Reis Lymphocytes/100 WBC (Bld) 10.9 % Critically low 20.5-60.0 [facility] Comment on above: Performed By: #### C BC ####[facility] Hznlucqygv[address] [place], [place] [address]DrOtto Reis MANUAL DIFF REQ NO Normal [facility] Comment on above: Performed By: #### C BC ####[facility] Egmfzdlrml1130 [place] [id number] Reis MCH (RBC) [Entitic mass] 30.0 pg Normal 26.7-34.0 [facility] Comment on above: Performed By: #### C BC ####[facility] Uqaxqmzsec20[address] [place] [address]DrOtto Reis MCHC (RBC) [Mass/Vol] 31.9 g/dL Normal 29.9-35.2 [facility] Comment on above: Performed By: #### C BC ####[facility] Bnjblurtme[address] [place], [place] [address]DrOtto Reis MCV (RBC) [Entitic vol] 93.8 fL Normal 81.0-99.0 [facility] Comment on above: Performed By: #### C BC ####[facility] Rwbkemnglm[address] [place], [place] [address]DrOtto Reis MONO # 1.0 103/ul Critically high 0.3-0.8 [facility] Comment on above: Performed By: #### C BC ####[facility] Sbbkgjbgiy[address] [place], [place] [address]DrOtto Reis Monocytes/100 WBC (Bld) 9.6 % Normal 1.7-12.0 [facility] Comment on above: Performed By: #### C BC ####[facility] Mandksyypd[address] [place], [place] [address]DrOtto Reis NEUT # 8.0 103/ul Critically high 1.4-6.5 [facility] Comment on above: Performed By: #### C BC ####[facility] Gtvfizxbng8[address] [place], [place] [address]DrOtto Reis Neutrophils/100 WBC (Bld) 75.7 % Critically high 43.0-75.0 [facility] Comment on above: Performed By: #### C BC ####[facility] Jtfeooipnq[address] [place], [place] [address]DrOtto Reis Platelet mean volume (Bld) [Entitic vol] 10.6 fL Normal 9.5-13.5 [facility] Comment on above: Performed By: #### C BC ####[facility] [address]rug[address]vjdr[address] [place] [phone]. Swathi Reis PLT 307 103/ul Normal 150-450 [facility] Comment on above: Performed By: #### C BC ####[facility] Dsgekdishq5120 [place] [address]Dr. Swathi Reis RBC 3.07 106/ul Critically low 4.20-5.40 [facility] Comment on above: Performed By: #### C BC ####[facility] Sxurdezphy2258 [place] [address]Dr. Swathi Reis WBC 10.6 103/ul Normal 4.0-11.0 [facility] Comment on above: Performed By: #### C BC ####[facility] [address]zjfvbual[address] [place] [address]DrOtto Swathi Reis POINT OF CARE GLUCOSEon 06-23 Glucose [Mass/Vol] 168 mg/dL Critically high 74-106 [facility] Comment on above: Performed By: #### P OCGLUC ####[facility] Yluesidbtz1408 [place] [address]Dr. Swathi Reis Glucose [Mass/Vol] 136 mg/dL Critically high 74-106 [facility] Comment on above: Performed By: #### P OCGLUC ####[facility] Iuwjldlbcl5819 [place] [address]Dr. Swathi Reis Glucose [Mass/Vol] 203 mg/dL Critically high 74-106 [facility] Comment on above: Performed By: #### P OCGLUC ####[facility] Lointzquwb3298 [place] [address]DrOtto Swathi Chato PROF 14(COMP METB)on 022 Albumin [Mass/Vol] 2.6 g/dL Critically low 3.4-5.0 [facility] Comment on above: Performed By: #### B ANODE MACHINE OPERATOR, CMP ####[facility] Wbiqsxrrmv7899 [place], [place] [address]Sc. Swathi Reis Albumin/Globulin [Mass ratio] 0.7 {ratio} Normal [facility] Comment on above: Performed By: #### B ANODE MACHINE OPERATOR, CMP ####[facility] Nyaqwmqeay0397 [place], [place] [address]Ay. Swathi Reis ALP [Catalytic activity/Vol] 73 U/L Normal 46-116 [facility] Comment on above: Performed By: #### B ANODE MACHINE OPERATOR, CMP ####[facility] Tmbtcjlyvs5468 [place] [phone]. Swathi Reis ALT [Catalytic activity/Vol] 12 U/L Critically low 14-59 [facility] Comment on above: Performed By: #### B ANODE MACHINE OPERATOR, CMP ####[facility] Wbzxyfvugx1076 [place] [phone]. Swathi Reis Anion gap [Moles/Vol] 12.4 mmol/L Normal [facility] Comment on above: Performed By: #### B ANODE MACHINE OPERATOR, CMP ####[facility] Cojosbdsem4415 [place] [phone]. Swathi Reis AST [Catalytic activity/Vol] 10 U/L Critically low 15-37 [facility] Comment on above: Performed By: #### B ANODE MACHINE OPERATOR, CMP ####[facility] Cpmktlygoz0238 [place] [address]Dr. Swathi Reis Bilirubin [Mass/Vol] 0.5 mg/dL Normal 0.2-1.0 [facility] Comment on above: Performed By: #### B ANODE MACHINE OPERATOR, CMP ####[facility] Ufjkwtxhno9591 [place] [phone]. Swathi Reis Calcium [Mass/Vol] 8.7 mg/dL Normal 8.5-10.1 [facility] Comment on above: Performed By: #### B ANODE MACHINE OPERATOR, CMP ####[facility] Jzyxoojtxs3827 [place] [address]Dr. Swathi Chato Chloride [Moles/Vol] 105 mmol/L Normal 98-107 [facility] Comment on above: Performed By: #### B ANODE MACHINE OPERATOR, CMP ####[facility] Rxkwmrckjp4645 [place] [phone]. Swathi Reis CO2 [Moles/Vol] 27.3 mmol/L Normal 21.0-32.0 [facility] Comment on above: Performed By: #### B ANODE MACHINE OPERATOR, CMP ####[facility] Mttmxkrxws4916[address] [place], [place] [address]Dr. Swathi Reis Creatinine [Mass/Vol] 2.02 mg/dL Critically high 0.55-1.02 [facility] Comment on above: Performed By: #### B ANODE MACHINE OPERATOR, CMP ####[facility] Mbernymrct39[address] [place], [place] [address]Dr. Inessatracy Chato EGFR-AF ANGOLAN 29 mL/min/1.73m2 Critically low >=60 [facility] Comment on above: Performed By: #### B ANODE MACHINE OPERATOR, CMP ####[facility] Flaiqsmbrv2437[address] [place], [place] [address]Dr. Swathi Reis EGFR-NON AF ANGOLAN 24 mL/min/1.73m2 Critically low >=60 [facility] Comment on above: Performed By: #### B ANODE MACHINE OPERATOR, CMP ####[facility] Prqduvszjs[address] [place], [place] [address]Dr. Swathi Reis Globulin (S) [Mass/Vol] 3.6 g/dL Normal [facility] Comment on above: Performed By: #### B ANODE MACHINE OPERATOR, CMP ####[facility] Ynkpjlkmkq5224[address] [place], [place] [address]Dr. Swathi Reis Glucose [Mass/Vol] 134 mg/dL Critically high 74-106 [facility] Comment on above: Performed By: #### B ANODE MACHINE OPERATOR, CMP ####[facility] Yoipamloxs6430[address] [place], [place] [address]Dr. Swathi Reis Potassium [Moles/Vol] 3.7 mmol/L Normal 3.5-5.1 [facility] Comment on above: Performed By: #### B ANODE MACHINE OPERATOR, CMP ####[facility] Bqeynovfhk60[address] [place], [place] [address]Dr. Swathi Reis Protein [Mass/Vol] 6.2 g/dL Critically low 6.4-8.2 [facility] Comment on above: Performed By: #### B ANODE MACHINE OPERATOR, CMP ####[facility] Wssbpljrxw9[address] [place], [place] [address]Dr. Swathi Reis Sodium [Moles/Vol] 141 mmol/L Normal 136-145 [facility] Comment on above: Performed By: #### B ANODE MACHINE OPERATOR, CMP ####[facility] Jkmtzechvf4811[address] [place], [place] [address]Dr. Swathi Chato Urea nitrogen [Mass/Vol] 29.0 mg/dL Critically high 7.0-18.0 [facility] Comment on above: Performed By: #### B ANODE MACHINE OPERATOR, CMP ####[facility] Mnvzhphmwe[address] [place], [place] [address]Dr. Inessatracy Reis Urea nitrogen/Creatinine [Mass ratio] 14.4 mg/mg Normal [facility] Comment on above: Performed By: #### B ANODE MACHINE OPERATOR, CMP ####[facility] Amwolaycya[address] [place], [place] [address]Dr. Swathi Chato XR CHEST 2 Von 07-09-2022 XR CHEST 2 V Normal [facility] BNPon 07-08-2022 Natriuretic peptide B (Bld) [Mass/Vol] 6044.0 pg/mL Critically high <=1,800.0 [facility] Comment on above: Performed By: #### B ANODE MACHINE OPERATOR, CMP ####[facility] Azwwnrenas99[address] [place], [place] [address]Dr. Swathi Chato CBC AUTO DIFFon 07-08-2022 BASO # 0.1 103/ul Normal 0.0-0.1 [facility] Comment on above: Performed By: #### C BC ####[facility] Pscmxwbmfv[address] [place], [place] [address]Dr. Swathi Reis Basophils/100 WBC (Bld) 0.7 % Normal 0.2-2.0 [facility] Comment on above: Performed By: #### C BC ####[facility] Qzpggpqbkk98[address] [place], [place] [address]Dr. Swathi Reis EO # 0.3 103/ul Normal 0.0-0.7 [facility] Comment on above: Performed By: #### C BC ####[facility] Vvoibpivae9016 [place] [phone]. Swathi Reis Eosinophils/100 WBC (Bld) 2.9 % Normal 0.9-7.0 [facility] Comment on above: Performed By: #### C BC ####[facility] Favabiagfp[address] [place] [address]Dr. Swathi Reis Erythrocyte distribution width (RBC) [Ratio] 13.5 % Normal 11.0-15.0 [facility] Comment on above: Performed By: #### C BC ####[facility] Oolmjzxqkw54[address] [place], [place] [address]Dr. Swathi Reis Hematocrit (Bld) [Volume fraction] 29.9 % Critically low 36.0-48.0 [facility] Comment on above: Performed By: #### C BC ####[facility] Tctojghcyv99[address] [place], [place] [address]Dr. Swathi Reis Hemoglobin (Bld) [Mass/Vol] 9.5 g/dL Critically low 12.0-16.0 [facility] Comment on above: Performed By: #### C BC ####[facility] Wblmvowfbe65[address] [place], [place] [address]Dr. Swathi Reis IG # 0.03 10e3/ul Normal 0.00-0.03 [facility] Comment on above: Performed By: #### C BC ####[facility] Kqtiyblcnu[address] [place], [place] [address]Dr. Swathi Reis IG % 0.3 % Normal 0.0-0.5 [facility] Comment on above: Performed By: #### C BC ####[facility] Unxsuzlzpi5[address] [place], [place] [address]Dr. Swathi Reis LYMPH # 0.9 103/ul Critically low 1.2-3.8 [facility] Comment on above: Performed By: #### C BC ####[facility] Oeaxhmhhun16[address] [place], [place] [address]Dr. Swathi Reis Lymphocytes/100 WBC (Bld) 8.4 % Critically low 20.5-60.0 [facility] Comment on above: Performed By: #### C BC ####[facility] Jgojpuqyma9560 [place] [phone]. Swathi Reis MANUAL DIFF REQ NO Normal [facility] Comment on above: Performed By: #### C BC ####[facility] Lgnyuyowyh5233 [place] [phone]. Swathi Reis MCH (RBC) [Entitic mass] 30.1 pg Normal 26.7-34.0 [facility] Comment on above: Performed By: #### C BC ####[facility] Afkgyirsxl5512 [place] [address]Dr. Swathi Reis MCHC (RBC) [Mass/Vol] 31.8 g/dL Normal 29.9-35.2 [facility] Comment on above: Performed By: #### C BC ####[facility] Msygpwcgmb07[address] [place], [place] [address]Dr. Swathi Reis MCV (RBC) [Entitic vol] 94.6 fL Normal 81.0-99.0 [facility] Comment on above: Performed By: #### C BC ####[facility] Dytlyanngn[address] [place], [place] [address]Dr. Swathi Reis MONO # 1.0 103/ul Critically high 0.3-0.8 [facility] Comment on above: Performed By: #### C BC ####[facility] Ybeitifhwa[address] [place], [place] [address]Dr. Swathi Reis Monocytes/100 WBC (Bld) 9.5 % Normal 1.7-12.0 [facility] Comment on above: Performed By: #### C BC ####[facility] M[address]ffoqzhf0[address] [place], [place] [address]Dr. Swathi Reis NEUT # 8.3 103/ul Critically high 1.4-6.5 [facility] Comment on above: Performed By: #### C BC ####[facility] Clhnpmmghg12[address] [place], [place] [address]Dr. Swathi Reis Neutrophils/100 WBC (Bld) 78.2 % Critically high 43.0-75.0 [facility] Comment on above: Performed By: #### C BC ####[facility] Upgyddstby2781 [place] [phone]. Swathi Reis Platelet mean volume (Bld) [Entitic vol] 10.7 fL Normal 9.5-13.5 [facility] Comment on above: Performed By: #### C BC ####[facility] Oqzitaqzbw7890 [place] [phone]. Swathi Reis PLT 273 103/ul Normal 150-450 [facility] Comment on above: Performed By: #### C BC ####[facility] Xnrmiqfwmk5265 [place] [phone]. Swathi Reis RBC 3.16 106/ul Critically low 4.20-5.40 [facility] Comment on above: Performed By: #### C BC ####[facility] Ogtgxaened0189 [place] [phone]. Swathi Reis WBC 10.6 103/ul Normal 4.0-11.0 [facility] Comment on above: Performed By: #### C BC ####[facility] Lepsbsjeiu7809 [place] [phone]. Swathi Reis POINT OF CARE GLUCOSEon 06-23 Glucose [Mass/Vol] 243 mg/dL Critically high 74-106 [facility] Comment on above: Performed By: #### P OCGLUC ####[facility] Odidxedskv7861 [place] [address]Dr. Swathi Reis Glucose [Mass/Vol] 161 mg/dL Critically high 74-106 [facility] Comment on above: Performed By: #### P OCGLUC ####[facility] Zelykggqnt2230 [place] [address]Dr. Swathi Reis Glucose [Mass/Vol] 186 mg/dL Critically high 74-106 [facility] Comment on above: Performed By: #### P OCGLUC ####[facility] Ownqcmbfnb3840 [place] [phone]. Swathi Reis Glucose [Mass/Vol] 168 mg/dL Critically high 74-106 [facility] Comment on above: Performed By: #### P OCGLUC ####[facility] Bidlunoiqh4789 [place] [address]Dr. Swathi Reis PROF 14(COMP METB)on 022 Albumin [Mass/Vol] 2.5 g/dL Critically low 3.4-5.0 Th e [facility] Comment on above: Performed By: #### B ANODE MACHINE OPERATOR, CMP ####[facility] Tdsdcladti2564 [place] [address]Dr. Swathi Reis Albumin/Globulin [Mass ratio] 0.7 {ratio} Normal [facility] Comment on above: Performed By: #### B ANODE MACHINE OPERATOR, CMP ####[facility] Ndbviehjoz[address] [place], [place] [address]Dr. Swathi Reis ALP [Catalytic activity/Vol] 77 U/L Normal 46-116 [facility] Comment on above: Performed By: #### B ANODE MACHINE OPERATOR, CMP ####[facility] Xvlalscbxl66[address] [place], [place] [address]Dr. Swathi Reis ALT [Catalytic activity/Vol] 16 U/L Normal 14-59 [facility] Comment on above: Performed By: #### B ANODE MACHINE OPERATOR, CMP ####[facility] Qcnucraolm[address] [place], [place] [address]Dr. Swathi Reis Anion gap [Moles/Vol] 11.9 mmol/L Normal [facility] Comment on above: Performed By: #### B ANODE MACHINE OPERATOR, CMP ####[facility] Uqxnnprwdc7276 [place] [address]Dr. Swathi Reis AST [Catalytic activity/Vol] 13 U/L Critically low 15-37 [facility] Comment on above: Performed By: #### B ANODE MACHINE OPERATOR, CMP ####[facility] Ezgadgrxir1699 [place] [address]Dr. Swathi Reis Bilirubin [Mass/Vol] 0.6 mg/dL Normal 0.2-1.0 [facility] Comment on above: Performed By: #### B ANODE MACHINE OPERATOR, CMP ####[facility] Jjiwheavjg1841 [place] [address]Dr. Swathi Reis Calcium [Mass/Vol] 8.7 mg/dL Normal 8.5-10.1 [facility] Comment on above: Performed By: #### B ANODE MACHINE OPERATOR, CMP ####[facility] Ktnszcobsx90[address] [place], [place] [address]Dr. Inessatracy Reis Chloride [Moles/Vol] 105 mmol/L Normal 98-107 [facility] Comment on above: Performed By: #### B ANODE MACHINE OPERATOR, CMP ####[facility] Kecouzghao[address] [place], [place] [address]Dr. Inessatracy Chato CO2 [Moles/Vol] 26.6 mmol/L Normal 21.0-32.0 [facility] Comment on above: Performed By: #### B ANODE MACHINE OPERATOR, CMP ####[facility] Rssewbhxbu[address] [place], [place] [address]Dr. Swathi Reis Creatinine [Mass/Vol] 1.54 mg/dL Critically high 0.55-1.02 [facility] Comment on above: Performed By: #### B ANODE MACHINE OPERATOR, CMP ####[facility] T[address]rmdqvzma12[address] [place], [place] [address]Dr. Inessatracy Chato EGFR-AF ANGOLAN 40 mL/min/1.73m2 Critically low >=60 [facility] Comment on above: Performed By: #### B ANODE MACHINE OPERATOR, CMP ####[facility] Tijomxgxgg9069[address] [place], [place] [address]Dr. Swathi Reis EGFR-NON AF ANGOLAN 33 mL/min/1.73m2 Critically low >=60 [facility] Comment on above: Performed By: #### B ANODE MACHINE OPERATOR, CMP ####[facility] Sajjvimiip[address] [place], [place] [address]Dr. Swathi Reis Globulin (S) [Mass/Vol] 3.8 g/dL Normal [facility] Comment on above: Performed By: #### B ANODE MACHINE OPERATOR, CMP ####[facility] Ufpwkmwrbk[address] [place], [place] [address]Dr. Swathi Reis Glucose [Mass/Vol] 153 mg/dL Critically high 74-106 [facility] Comment on above: Performed By: #### B ANODE MACHINE OPERATOR, CMP ####[facility] Qyshwaqfmt40[address] [place], [place] [address]Dr. Swathi Reis Potassium [Moles/Vol] 3.5 mmol/L Normal 3.5-5.1 [facility] Comment on above: Performed By: #### B ANODE MACHINE OPERATOR, CMP ####[facility] Ikoocdvmyz7151 [place] [address]Dr. Swathi Reis Protein [Mass/Vol] 6.3 g/dL Critically low 6.4-8.2 [facility] Comment on above: Performed By: #### B ANODE MACHINE OPERATOR, CMP ####[facility] Koolnuqium7[address] [place], [place] [address]Dr. Swathi Reis Sodium [Moles/Vol] 140 mmol/L Normal 136-145 [facility] Comment on above: Performed By: #### B ANODE MACHINE OPERATOR, CMP ####[facility] Ctfyjechsq87[address] [place], [place] [address]Dr. Swathi Reis Urea nitrogen [Mass/Vol] 25.0 mg/dL Critically high 7.0-18.0 [facility] Comment on above: Performed By: #### B ANODE MACHINE OPERATOR, CMP ####[facility] Mgydsffhcf[address] [place], [place] [address]Dr. Swathi Reis Urea nitrogen/Creatinine [Mass ratio] 16.2 mg/mg Normal [facility] Comment on above: Performed By: #### B ANODE MACHINE OPERATOR, CMP ####[facility] Jeelviptqh8[address] [place], [place] [address]Dr. Swathi Chato BNPon 07-07-2022 Natriuretic peptide B (Bld) [Mass/Vol] 6413.0 pg/mL Critically high <=1,800.0 [facility] Comment on above: Performed By: #### B ANODE MACHINE OPERATOR, CMP ####[facility] Ojiatmsuku66[address] [place], [place] [address]Dr. Inessatracy Chato CBC AUTO DIFFon 07-07-2022 BASO # 0.1 103/ul Normal 0.0-0.1 [facility] Comment on above: Performed By: #### C BC ####[facility] Oxoueustyj[address] [place], [place] [address]Dr. Swathi Reis Basophils/100 WBC (Bld) 0.4 % Normal 0.2-2.0 [facility] Comment on above: Performed By: #### C BC ####[facility] Aisgzdqjpu7931 [place] [address]Dr. Swathi Reis EO # 0.3 103/ul Normal 0.0-0.7 [facility] Comment on above: Performed By: #### C BC ####[facility] Eemccjyusf[address] [place], [place] [address]Dr. Swathi Reis Eosinophils/100 WBC (Bld) 2.6 % Normal 0.9-7.0 [facility] Comment on above: Performed By: #### C BC ####[facility] Fotaetuhgf[address] [place], [place] [address]Dr. Swathi Reis Erythrocyte distribution width (RBC) [Ratio] 13.7 % Normal 11.0-15.0 [facility] Comment on above: Performed By: #### C BC ####[facility] Bcrsbzkpia97[address] [place], [place] [address]Dr. Swathi Reis Hematocrit (Bld) [Volume fraction] 28.9 % Critically low 36.0-48.0 [facility] Comment on above: Performed By: #### C BC ####[facility] Crmjevgihk[address] [place], [place] [address]Dr. Swathi Reis Hemoglobin (Bld) [Mass/Vol] 9.3 g/dL Critically low 12.0-16.0 [facility] Comment on above: Performed By: #### C BC ####[facility] Wxfzgychni[address] [place], [place] [address]Dr. Swathi Reis IG # 0.04 10e3/ul Critically high 0.00-0.03 [facility] Comment on above: Performed By: #### C BC ####[facility] Mibbwjwabf8[address] [place], [place] [address]Dr. Swathi Reis IG % 0.4 % Normal 0.0-0.5 [facility] Comment on above: Performed By: #### C BC ####[facility] Ewtzdhsqbr4[address] [place], [place] [address]DrOtto Reis LYMPH # 1.0 103/ul Critically low 1.2-3.8 [facility] Comment on above: Performed By: #### C BC ####[facility] Jwidhiudqs2050 [place] [address]Dr. Swathi Reis Lymphocytes/100 WBC (Bld) 8.6 % Critically low 20.5-60.0 [facility] Comment on above: Performed By: #### C BC ####[facility] Dlibexesfk0027 [place] [address]DrOtto Reis MANUAL DIFF REQ NO Normal [facility] Comment on above: Performed By: #### C BC ####[facility] Oehpedndlo9890 [place] [address]Dr. Swathi Reis MCH (RBC) [Entitic mass] 30.0 pg Normal 26.7-34.0 [facility] Comment on above: Performed By: #### C BC ####[facility] Hywlpydwqw[address] [place], [place] [address]Dr. Swathi Reis MCHC (RBC) [Mass/Vol] 32.2 g/dL Normal 29.9-35.2 [facility] Comment on above: Performed By: #### C BC ####[facility] [address]qqypwyoo[address] [place], [place] [address]DrOtto Reis MCV (RBC) [Entitic vol] 93.2 fL Normal 81.0-99.0 [facility] Comment on above: Performed By: #### C BC ####[facility] [address]zhoozfneo[address] [place], [place] [address]Dr. Swathi Reis MONO # 1.0 103/ul Critically high 0.3-0.8 [facility] Comment on above: Performed By: #### C BC ####[facility] Rblmawzsrc[address] [place], [place] [address]DrOtto Reis Monocytes/100 WBC (Bld) 9.0 % Normal 1.7-12.0 [facility] Comment on above: Performed By: #### C BC ####[facility] T[address]pxqicrvy[address] [place], [place] [address]Dr. Swathi Reis NEUT # 9.0 103/ul Critically high 1.4-6.5 [facility] Comment on above: Performed By: #### C BC ####[facility] Sjxfooszhl8732 [place] [address]Dr. Swathi Reis Neutrophils/100 WBC (Bld) 79.0 % Critically high 43.0-75.0 [facility] Comment on above: Performed By: #### C BC ####[facility] Fzpuwdnkdm0735 [place] [address]Dr. Swathi Reis Platelet mean volume (Bld) [Entitic vol] 10.7 fL Normal 9.5-13.5 [facility] Comment on above: Performed By: #### C BC ####[facility] Yjlijgxhqp[address] [place], [place] [address]Dr. Swathi Reis PLT 264 103/ul Normal 150-450 [facility] Comment on above: Performed By: #### C BC ####[facility] [address]vpvvhmo6[address] [place], [place] [address]Dr. Swathi Reis RBC 3.10 106/ul Critically low 4.20-5.40 [facility] Comment on above: Performed By: #### C BC ####[facility] Pguswuzpqz[address] [place], [place] [address]Dr. Swathi Reis WBC 11.4 103/ul Critically high 4.0-11.0 [facility] Comment on above: Performed By: #### C BC ####[facility] Jjalypnhff[address] [place], [place] [address]Dr. Inessatracy Chato POINT OF CARE GLUCOSEon 06-23 Glucose [Mass/Vol] 298 mg/dL Critically high 74-106 [facility] Comment on above: Performed By: #### P OCGLUC ####[facility] Gunqnvnpgt7[address] [place], [place] [address]Dr. Swathi Reis Glucose [Mass/Vol] 123 mg/dL Critically high 74-106 [facility] Comment on above: Performed By: #### P OCGLUC ####[facility] Lyircuzccw[address] [place], [place] [address]Dr. Swathi Reis Glucose [Mass/Vol] 263 mg/dL Critically high 74-106 [facility] Comment on above: Performed By: #### P OCGLUC ####[facility] X[address]ifhhipb[address] [place] [address]Dr. Swathi Reis Glucose [Mass/Vol] 151 mg/dL Critically high 74-106 [facility] Comment on above: Performed By: #### P OCGLUC ####[facility] Fasphjhtgk[address] [place] [address]Dr. Swathi Reis PROF 14(COMP METB)on 022 Albumin [Mass/Vol] 2.5 g/dL Critically low 3.4-5.0 [facility] Comment on above: Performed By: #### B ANODE MACHINE OPERATOR, CMP ####[facility] Ofaymqyaap[address] [place], [place] [address]Dr. Swathi Reis Albumin/Globulin [Mass ratio] 0.7 {ratio} Normal [facility] Comment on above: Performed By: #### B ANODE MACHINE OPERATOR, CMP ####[facility] Ezruxercja[address] [place], [place] [address]Dr. Swathi Reis ALP [Catalytic activity/Vol] 82 U/L Normal 46-116 [facility] Comment on above: Performed By: #### B ANODE MACHINE OPERATOR, CMP ####[facility] Bgczqmmsdx24[address] [place], [place] [address]Dr. Swathi Reis ALT [Catalytic activity/Vol] 13 U/L Critically low 14-59 [facility] Comment on above: Performed By: #### B ANODE MACHINE OPERATOR, CMP ####[facility] Tkjrukasgx4[address] [place], [place] [address]Dr. Swathi Reis Anion gap [Moles/Vol] 11.5 mmol/L Normal [facility] Comment on above: Performed By: #### B ANODE MACHINE OPERATOR, CMP ####[facility] Wznmeqtgul[address] [place], [place] [address]Dr. Swathi Reis AST [Catalytic activity/Vol] 12 U/L Critically low 15-37 [facility] Comment on above: Performed By: #### B ANODE MACHINE OPERATOR, CMP ####[facility] Wrcrlpqgqa35[address] [place], [place] [address]Dr. Swathi Reis Bilirubin [Mass/Vol] 0.7 mg/dL Normal 0.2-1.0 [facility] Comment on above: Performed By: #### B ANODE MACHINE OPERATOR, CMP ####[facility] Rkqysxmuvc[address] [place] [address]Dr. Swathi Reis Calcium [Mass/Vol] 8.6 mg/dL Normal 8.5-10.1 [facility] Comment on above: Performed By: #### B ANODE MACHINE OPERATOR, CMP ####[facility] Dhdkwafkjg[address] [place] [address]Dr. Swathi Reis Chloride [Moles/Vol] 104 mmol/L Normal 98-107 [facility] Comment on above: Performed By: #### B ANODE MACHINE OPERATOR, CMP ####[facility] Ulotpdlmoz6364[address] [place], [place] [address]Dr. Swathi Reis CO2 [Moles/Vol] 26.6 mmol/L Normal 21.0-32.0 The [facility] Comment on above: Performed By: #### B ANODE MACHINE OPERATOR, CMP ####[facility] Wjukfjkwem[address] [place], [place] [address]Dr. Swathi Reis Creatinine [Mass/Vol] 1.56 mg/dL Critically high 0.55-1.02 [facility] Comment on above: Performed By: #### B ANODE MACHINE OPERATOR, CMP ####[facility] Toj[address]duoyh[address] [place] [address]Dr. Swathi Reis EGFR-AF ANGOLAN 39 mL/min/1.73m2 Critically low >=60 [facility] Comment on above: Performed By: #### B ANODE MACHINE OPERATOR, CMP ####[facility] Gvvenekxyd[address] [place] [address]Dr. Swathi Reis EGFR-NON AF ANGOLAN 32 mL/min/1.73m2 Critically low >=60 [facility] Comment on above: Performed By: #### B ANODE MACHINE OPERATOR, CMP ####[facility] Xquezuiazp[address] [place] [address]Dr. Swathi Reis Globulin (S) [Mass/Vol] 3.7 g/dL Normal [facility] Comment on above: Performed By: #### B ANODE MACHINE OPERATOR, CMP ####[facility] Xquxonqyio[address] [place] [address]Dr. Swathi Reis Glucose [Mass/Vol] 149 mg/dL Critically high 74-106 [facility] Comment on above: Performed By: #### B ANODE MACHINE OPERATOR, CMP ####[facility] Ucpmszyrvb7[address] [place] [address]Dr. Inessatracy Reis Potassium [Moles/Vol] 3.1 mmol/L Critically low 3.5-5.1 [facility] Comment on above: Performed By: #### B ANODE MACHINE OPERATOR, CMP ####[facility] Onqziccoax9[address] [place], [place] [address]Dr. Inessatracy Reis Protein [Mass/Vol] 6.2 g/dL Critically low 6.4-8.2 [facility] Comment on above: Performed By: #### B ANODE MACHINE OPERATOR, CMP ####[facility] Fypcatssxx25[address] [place], [place] [address]Dr. Swathi Reis Sodium [Moles/Vol] 139 mmol/L Normal 136-145 [facility] Comment on above: Performed By: #### B ANODE MACHINE OPERATOR, CMP ####[facility] Vtblrleoqu[address] [place], [place] [address]Dr. Swathi Reis Urea nitrogen [Mass/Vol] 19.0 mg/dL Critically high 7.0-18.0 [facility] Comment on above: Performed By: #### B ANODE MACHINE OPERATOR, CMP ####[facility] Zmdrqtevzq[address] [place], [place] [address]Dr. Inessatracy Chato Urea nitrogen/Creatinine [Mass ratio] 12.2 mg/mg Normal [facility] Comment on above: Performed By: #### B ANODE MACHINE OPERATOR, CMP ####[facility] Vimxobjbpw[address] [place], [place] [address]Dr. Swathi Reis BNPon 07-06-2022 Natriuretic peptide B (Bld) [Mass/Vol] 4734.0 pg/mL Critically high <=1,800.0 [facility] Comment on above: Performed By: #### B ANODE MACHINE OPERATOR, CMP ####[facility] Shvsusbenj6[address] [place], [place] [address]Dr. Swathi Reis CBC AUTO DIFFon 10-14-2022 BASO # 0.0 103/ul Normal 0.0-0.1 [facility] Comment on above: Performed By: #### C BC ####[facility] B[address]vjojquv61[address] [place] [address]Dr. Swathi Reis Basophils/100 WBC (Bld) 0.3 % Normal 0.2-2.0 [facility] Comment on above: Performed By: #### C BC ####[facility] Isvhxpoxle4894 [place] [address]Dr. Swathi Reis EO # 0.0 103/ul Normal 0.0-0.7 [facility] Comment on above: Performed By: #### C BC ####[facility] Tizddthhgc7[address] [place], [place] [address]Dr. Swathi Reis Eosinophils/100 WBC (Bld) 0.1 % Critically low 0.9-7.0 [facility] Comment on above: Performed By: #### C BC ####[facility] Kdnaibqwrx[address] [place], [place] [address]Dr. Swathi Reis Erythrocyte distribution width (RBC) [Ratio] 13.5 % Normal 11.0-15.0 [facility] Comment on above: Performed By: #### C BC ####[facility] Ftmdwiqxzo1886 [place] [address]Dr. Swathi Reis Hematocrit (Bld) [Volume fraction] 29.6 % Critically low 36.0-48.0 [facility] Comment on above: Performed By: #### C BC ####[facility] Zzcaftafjh24[address] [place], [place] [address]Dr. Swathi Reis Hemoglobin (Bld) [Mass/Vol] 9.6 g/dL Critically low 12.0-16.0 [facility] Comment on above: Performed By: #### C BC ####[facility] Qrvsqztlyk[address] [place] [address]Dr. Swathi Reis IG # 0.07 10e3/ul Critically high 0.00-0.03 The [facility] Comment on above: Performed By: #### C BC ####[facility] [address]am[address] [place] [id number]. Swathi Chato IG % 0.5 % Normal 0.0-0.5 [facility] Comment on above: Performed By: #### C BC ####[facility] Ovtqnrwlcs[address] [place] [address]Dr. Swathi Chato LYMPH # 1.4 103/ul Normal 1.2-3.8 [facility] Comment on above: Performed By: #### C BC ####[facility] Wvmyjakjys[address] [place] [address]Dr. Swathi Chato Lymphocytes/100 WBC (Bld) 9.7 % Critically low 20.5-60.0 [facility] Comment on above: Performed By: #### C BC ####[facility] Awxqrbgiwc[address] [place], [place] [address]Dr. Inessatracy Reis MANUAL DIFF REQ NO Normal [facility] Comment on above: Performed By: #### C BC ####[facility] Ayfmwbluwv13[address] [place] [address]Dr. Swathi Chato MCH (RBC) [Entitic mass] 29.9 pg Normal 26.7-34.0 [facility] Comment on above: Performed By: #### C BC ####[facility] Dpcovtaowp[address] [place], [place] [address]Dr. Swathi Reis MCHC (RBC) [Mass/Vol] 32.4 g/dL Normal 29.9-35.2 [facility] Comment on above: Performed By: #### C BC ####[facility] Wgpbyyisie[address] [place] [address]Dr. Swathi Chato MCV (RBC) [Entitic vol] 92.2 fL Normal 81.0-99.0 [facility] Comment on above: Performed By: #### C BC ####[facility] Uinjfysktx[address] [place], [place] [address]Dr. Swathi Reis MONO # 1.3 103/ul Critically high 0.3-0.8 [facility] Comment on above: Performed By: #### C BC ####[facility] Ts[address]ch[address] [place] [id number]. Swathi Reis Monocytes/100 WBC (Bld) 9.4 % Normal 1.7-12.0 [facility] Comment on above: Performed By: #### C BC ####[facility] Ywznsnknnh5[address] [place] [address]Dr. Swathi Reis NEUT # 11.4 103/ul Critically high 1.4-6.5 The [facility] Comment on above: Performed By: #### C BC ####[facility] Ubvmqathna4[address] [place] [address]Dr. Swathi Reis Neutrophils/100 WBC (Bld) 80.0 % Critically high 43.0-75.0 [facility] Comment on above: Performed By: #### C BC ####[facility] Unfpdaukyk2946 [place] [address]Dr. Swathi Reis Platelet mean volume (Bld) [Entitic vol] 10.6 fL Normal 9.5-13.5 [facility] Comment on above: Performed By: #### C BC ####[facility] Kqhezzpcoy8606 [place] [address]Dr. Swathi Reis PLT 283 103/ul Normal 150-450 [facility] Comment on above: Performed By: #### C BC ####[facility] Zuqeijvkkp73[address] [place] [address]Dr. Swathi Reis RBC 3.21 106/ul Critically low 4.20-5.40 [facility] Comment on above: Performed By: #### C BC ####[facility] Xrqniqcyza8028 [place] [id number]. Swathi Reis WBC 14.2 103/ul Critically high 4.0-11.0 The [facility] Comment on above: Performed By: #### C BC ####[facility] Jgkhzvkmsc[address] [place], [place] [address]Dr. Swathi Reis ECHOCARDIO M/2D COMPLETEon ECHOCARDIO M/2D COMPLETE Normal [facility] POINT OF CARE GLUCOSEon 10- Glucose [Mass/Vol] 227 mg/dL Critically high 74-106 [facility] Comment on above: Performed By: #### P OCGLUC ####[facility] Pmrdgfkbwc2364 [place] [address]Dr. Swathi Reis Glucose [Mass/Vol] 175 mg/dL Critically high 74-106 [facility] Comment on above: Performed By: #### P OCGLUC ####[facility] Rqaoododjq5594 [place] [address]Dr. Swathi Reis PROF 14(COMP METB)on 07-06-2 022 Albumin [Mass/Vol] 2.6 g/dL Critically low 3.4-5.0 [facility] Comment on above: Performed By: #### B ANODE MACHINE OPERATOR, CMP ####[facility] Xddodtiwsp[address] [place], [place] [address]Dr. Swathi Reis Albumin/Globulin [Mass ratio] 0.7 {ratio} Normal [facility] Comment on above: Performed By: #### B ANODE MACHINE OPERATOR, CMP ####[facility] Easpch[address] [place], [place] [address]Dr. Swathi Reis ALP [Catalytic activity/Vol] 79 U/L Normal 46-116 [facility] Comment on above: Performed By: #### B ANODE MACHINE OPERATOR, CMP ####[facility] Sttrmqdlkn[address] [place], [place] [address]Dr. Swathi Reis ALT [Catalytic activity/Vol] 17 U/L Normal 14-59 [facility] Comment on above: Performed By: #### B ANODE MACHINE OPERATOR, CMP ####[facility] Bllzrgneji[address] [place], [place] [address]Dr. Swathi Reis Anion gap [Moles/Vol] 11.5 mmol/L Normal [facility] Comment on above: Performed By: #### B ANODE MACHINE OPERATOR, CMP ####[facility] Wilurogija[address] [place], [place] [address]Dr. Swathi eRis AST [Catalytic activity/Vol] 11 U/L Critically low 15-37 [facility] Comment on above: Performed By: #### B ANODE MACHINE OPERATOR, CMP ####[facility] Lorhxsozrh19[address] [place], [place] [address]Dr. Swathi Reis Bilirubin [Mass/Vol] 0.9 mg/dL Normal 0.2-1.0 [facility] Comment on above: Performed By: #### B ANODE MACHINE OPERATOR, CMP ####[facility] Bgpfylyica[address] [place], [place] [address]Dr. Swathi Reis Calcium [Mass/Vol] 8.3 mg/dL Critically low 8.5-10.1 Th e [facility] Comment on above: Performed By: #### B ANODE MACHINE OPERATOR, CMP ####[facility] Dcagyegpwp[address] [place], [place] [address]Dr. Swathi Reis Chloride [Moles/Vol] 102 mmol/L Normal 98-107 [facility] Comment on above: Performed By: #### B ANODE MACHINE OPERATOR, CMP ####[facility] Dtuecvyqtq24[address] [place], [place] [address]Dr. Inessatracy Reis CO2 [Moles/Vol] 29.5 mmol/L Normal 21.0-32.0 The [facility] Comment on above: Performed By: #### B ANODE MACHINE OPERATOR, CMP ####[facility] Bysbulytfk[address] [place], [place] [address]Dr. Swathi Chato Creatinine [Mass/Vol] 1.47 mg/dL Critically high 0.55-1.02 [facility] Comment on above: Performed By: #### B ANODE MACHINE OPERATOR, CMP ####[facility] Gqdibmflwn[address] [place], [place] [address]Dr. Inessatracy Chato EGFR-AF ANGOLAN 42 mL/min/1.73m2 Critically low >=60 [facility] Comment on above: Performed By: #### B ANODE MACHINE OPERATOR, CMP ####[facility] Omjyjskqav[address] [place], [place] [address]Dr. Inessatracy Chato EGFR-NON AF ANGOLAN 34 mL/min/1.73m2 Critically low >=60 [facility] Comment on above: Performed By: #### B ANODE MACHINE OPERATOR, CMP ####[facility] Rpsodotbya07[address] [place], [place] [address]Dr. Swathi Reis Globulin (S) [Mass/Vol] 3.7 g/dL Normal [facility] Comment on above: Performed By: #### B ANODE MACHINE OPERATOR, CMP ####[facility] Vcrvcmmfac5[address] [place] [address]Dr. Swathi Reis Glucose [Mass/Vol] 150 mg/dL Critically high 74-106 T [facility] Comment on above: Performed By: #### B ANODE MACHINE OPERATOR, CMP ####[facility] Adcofdwfsi4[address] [place], [place] [address]Dr. Swathi Reis Potassium [Moles/Vol] 3.0 mmol/L Critically low 3.5-5.1 [facility] Comment on above: Performed By: #### B ANODE MACHINE OPERATOR, CMP ####[facility] Bahfwkdood[address] [place], [place] [address]Dr. Swathi Reis Protein [Mass/Vol] 6.3 g/dL Critically low 6.4-8.2 [facility] Comment on above: Performed By: #### B ANODE MACHINE OPERATOR, CMP ####[facility] W[address]rceh[address] [place], [place] [address]Dr. Swathi Reis Sodium [Moles/Vol] 140 mmol/L Normal 136-145 [facility] Comment on above: Performed By: #### B ANODE MACHINE OPERATOR, CMP ####[facility] Hnvhpdjvxf[address] [place], [place] [address]Dr. Swathi Reis Urea nitrogen [Mass/Vol] 16.0 mg/dL Normal 7.0-18.0 [facility] Comment on above: Performed By: #### B ANODE MACHINE OPERATOR, CMP ####[facility] Nogegywndx[address] [place], [place] [address]Dr. Swathi Reis Urea nitrogen/Creatinine [Mass ratio] 10.9 mg/mg Normal [facility] Comment on above: Performed By: #### B ANODE MACHINE OPERATOR, CMP ####[facility] Wrviizeihp[address] [place], [place] [address]Dr. Swathi Reis XR CHEST 2 Von 07-06-2022 XR CHEST 2 V Normal [facility] BLOOD GASES BTYon 07-05-2022 02 MODE NASAL CANNULA Normal The [facility] Comment on above: Performed By: #### A BG ####[facility] [address]urgvjvgi[address] [place], [place] [address]Dr. Inessatracy Chato ALLENS TEST Positive Normal [facility] Comment on above: Performed By: #### A BG ####[facility] Pjrcnprtia4[address] [place] [address]Dr. Swathi Reis Base excess Calc (Bld) [Moles/Vol] 3.1 mmol/L Critically high -2.0-2.0 [facility] Comment on above: Performed By: #### A BG ####[facility] Bnmuzblwaj[address] [place], [place] [address]Dr. Swathi Reis BIPAP PRESSURE Normal The [facility] Comment on above: Performed By: #### A BG ####[facility] Tdfbdbmxxi[address] [place], [place] [address]Dr. Swathi Reis CPAP Normal [facility] Comment on above: Performed By: #### A BG ####[facility] Ixmjwcoxxk[address] [place], [place] [address]Dr. Swathi Reis FIO2 Normal [facility] Comment on above: Performed By: #### A BG ####[facility] Xujjkpedmx[address] [place], [place] [address]Dr. Swathi Reis HCO3 (Bld) [Moles/Vol] 27.0 mmol/L Critically high 22.0-26.0 [facility] Comment on above: Performed By: #### A BG ####[facility] Vxjvpuhoeo[address] [place], [place] [address]Dr. Swathi Reis LPM 5 Normal [facility] Comment on above: Performed By: #### A BG ####[facility] M[address]qvskhut[address] [place], [place] [address]Dr. Swathi Reis MINUTE VOLUME Normal The [facility] Comment on above: Performed By: #### A BG ####[facility] Ufgaewoqqg[address] [place], [place] [address]Dr. Swathi Reis Oxygen (Bld) [Partial pressure] 71.4 mm[Hg] Critically low 80.0-100.0 [facility] Comment on above: Performed By: #### A BG ####[facility] Agkhxqbrfo[address] [place], [place] [address]Dr. Swathi Reis Oxygen saturation in Blood 95.5 % Normal 95.0-100.0 [facility] Comment on above: Performed By: #### A BG ####[facility] Dujpcqwuqv24[address] [place] [address]Dr. Swathi Reis PCO2 40.2 mmHg Normal 35.0-45.0 [facility] Comment on above: Performed By: #### A BG ####[facility] Oyosamynyu[address] [place] [address]Dr. Swathi Reis PEEP [facility] Comment on above: Performed By: #### A BG ####[facility] Lqiufxughs8703 [place] [address]Dr. Swathi Reis pH (Bld) 7.440 [pH] Normal 7.350-7.450 [facility] Comment on above: Performed By: #### A BG ####[facility] Dmnhbuqvlo[address] [place], [place] [address]Dr. Swathi Reis PIP [facility] Comment on above: Performed By: #### A BG ####[facility] Ezpvnddwyb[address] [place], [place] [address]Dr. Swathi Reis PS [facility] Comment on above: Performed By: #### A BG ####[facility] Utyiodsoyj[address] [place], [place] [address]Dr. Swathi Reis PUNCTURE SITE RR [place] The [facility] Comment on above: Performed By: #### A BG ####[facility] Vriebobszb[address] [place], [place] [address]Dr. Swathi Reis RATE [facility] Comment on above: Performed By: #### A BG ####[facility] Ypqzcohknw[address] [place], [place] [address]Dr. Swathi Reis VENT MODE [facility] Comment on above: Performed By: #### A BG ####[facility] [address]ydawxht[address] [place], [place] [address]Dr. Swathi Reis VT [facility] Comment on above: Performed By: #### A BG ####[facility] Igxoqxrehm[address] [place], [place] [address]Dr. Swathi Reis BNPon 07-05-2022 Natriuretic peptide B (Bld) [Mass/Vol] 2257.0 pg/mL Critically high <=1,800.0 [facility] Comment on above: Performed By: #### H STROPN, CMP, BNP ####[facility] Tblglphfbp5104 [place] [id number]. Swathi Reis CARDIAC TRINA 3-6on 2 CK [Catalytic activity/Vol] 54 U/L Normal 26-192 [facility] Comment on above: Performed By: #### C MREP ####[facility] Jtuwxljjsh49[address] [place] [address]Dr. Swathi Reis CK.MB [Mass/Vol] ng/mL Normal <=3.60 The [facility] Comment on above: Performed By: #### C MREP ####[facility] Gvngrvsyoe8[address] [place] [address]Dr. Swahti Reis HSTROP 18.6 pg/mL Normal 4.0-51.3 [facility] Comment on above: Result Comment: CUT- OFF POINTS HAVE BEEN ESTABLISHED BASED ON THE FOURTH UNIVERSAL DEFINITIONS OF MYOCARDIALINFARCTION. THE UPPER REFERENCE LIMIT (URL) OF TROPONIN, DEFINED THE 99TH PERCENTILE OFcTnI DISTRIBUTION IN A REFERENCE POPULATION, HAS BEEN CONFIRMED THE DECISION THRESHOLDFOR [place] DIAGNOSIS. Performed By: #### C MREP ####[facility] Lykvcnizqu[address] [place] [address]Dr. Swathi Reis CK [Catalytic activity/Vol] 38 U/L Normal 26-192 [facility] Comment on above: Performed By: #### C MREP ####[facility] Fhjmfebded5405 [place] [address]Dr. Swathi Reis CK.MB [Mass/Vol] 0.51 ng/mL Normal <=3.60 The [facility] Comment on above: Performed By: #### C MREP ####[facility] Nocgyylphr58[address] [place] [id number]. Swathi Reis HSTROP 16.6 pg/mL Normal 4.0-51.3 [facility] Comment on above: Result Comment: CUT- OFF POINTS HAVE BEEN ESTABLISHED BASED ON THE FOURTH UNIVERSAL DEFINITIONS OF MYOCARDIALINFARCTION. THE UPPER REFERENCE LIMIT (URL) OF TROPONIN, DEFINED THE 99TH PERCENTILE OFcTnI DISTRIBUTION IN A REFERENCE POPULATION, HAS BEEN CONFIRMED THE DECISION THRESHOLDFOR [place] DIAGNOSIS. Performed By: #### C MREP ####[facility] [address]iawqvlvis[address] [place] [address]Dr. Swathi Reis CBC W MANUAL DIFFon 07-05-20 22 ATYPICAL LYMPH # Normal [facility] Comment on above: Performed By: #### C JAUNMAN ####[facility] Xnryawygzj5[address] [place] [address]Dr. Swathi Reis ATYPICAL LYMPH % Normal [facility] Comment on above: Performed By: #### C NGA ####[facility] Ertvqkjqea[address] [place], [place] [address]Dr. Swathi Reis BAND # 0.4 103/ul Critically high 0.0-0.3 [facility] Comment on above: Performed By: #### C NGA ####[facility] Itfbxvcawz[address] [place], [place] [address]Dr. Swathi Reis BAND % 2 % Normal 0-5 [facility] Comment on above: Performed By: #### C NGA ####[facility] [address]pvfopac[address] [place], [place] [address]Dr. Swathi Reis BASOM # 0.00 103/ul Normal 0.00-0.10 [facility] Comment on above: Performed By: #### C NGA ####[facility] Em[address]omhs[address] [place], [place] [address]Dr. Swathi Reis BASOM % 0.0 % Critically low 0.2-2.0 The [facility] Comment on above: Performed By: #### C NGA ####[facility] [address]awawhothx[address] [place], [place] [address]Dr. Swathi Reis BLAST # Normal [facility] Comment on above: Performed By: #### C NGA ####[facility] [address]vdtpzfg20[address] [place] [address]Dr. Swathi Reis BLAST % Normal [facility] Comment on above: Performed By: #### C NGA ####[facility] Gjujmefqrd0094 [place], [place] [address]Uc. Swathi Reis CORRECTED WBC Normal 4.0-11.0 The [facility] Comment on above: Performed By: #### C NGA ####[facility] Jlcsedawio75[address] [place] [id number]. Swathi Reis EOS # 0.00 103/ul Normal 0.00-0.70 [facility] Comment on above: Performed By: #### C NGA ####[facility] Kxjkgxovmz3085 [place] [id number]. Swathi Reis EOS% 0.0 % Critically low 0.9-7.0 The [facility] Comment on above: Performed By: #### C NGA ####[facility] Wdipzxovyg2329 [place] [id number]. Swathi Reis HCT 32.7 % Critically low 36.0-48.0 [facility] Comment on above: Performed By: #### C NGA ####[facility] Gbmrcroozx4923 [place] [address]Dr. Swathi Reis HGB 10.6 g/dl Critically low 12.0-16.0 The [facility] Comment on above: Performed By: #### C NGA ####[facility] Itwyhztiqk7386 [place] [address]Dr. Swathi Reis LYMPHM # 0.84 103/ul Critically low 1.20-3.80 The [facility] Comment on above: Performed By: #### C NGA ####[facility] Aukuxncdjc5394 [place] [address]Dr. Swathi Reis LYMPHM% 4.0 % Critically low 20.5-60.0 The [facility] Comment on above: Performed By: #### C GNA ####[facility] Jyzwedjgxy1951 [place] [address]Dr. Swathi Reis MCH 30.1 pg Normal 26.7-34.0 [facility] Comment on above: Performed By: #### C NGA ####[facility] Xrjlkgduwp[address] [place], [place] [address]Dr. Swathi Reis MCHC 32.4 g/dl Normal 29.9-35.2 [facility] Comment on above: Performed By: #### C NGA ####[facility] Kndpwspxwc9061 [place] [address]Dr. Swathi Reis MCV 92.9 fL Normal 81.0-99.0 [facility] Comment on above: Performed By: #### C NGA ####[facility] Acopslajtb1391 [place] [address]Dr. Swathi Reis METAMYELOCYTE # Normal The [facility] Comment on above: Performed By: #### C NGA ####[facility] Urwchlkisq5344 [place] [address]Dr. Swathi Reis METAMYELOCYTE % Normal [facility] Comment on above: Performed By: #### C NGA ####[facility] Vetduqkbqu[address] [place], [place] [address]Dr. Swathi Reis MONOM# 1.88 103/ul Critically high 0.30-0.80 [facility] Comment on above: Performed By: #### C NGA ####[facility] Aeptmwcqsa9799 [place] [address]Dr. Swathi Reis MONOM% 9.0 % Normal 1.7-12.0 [facility] Comment on above: Performed By: #### C NGA ####[facility] Ursranacqo8933 [place] [address]Dr. Swathi Reis MPV 10.6 fL Normal 9.5-13.5 [facility] Comment on above: Performed By: #### C NGA ####[facility] Fvnizltawc6567 [place] [address]Dr. Swathi Reis MYELOCYTE # Normal [facility] Comment on above: Performed By: #### C NGA ####[facility] Jslrzbbgnp2018 [place] [address]Dr. Swathi Reis MYELOCYTE % Normal [facility] Comment on above: Performed By: #### C NGA ####[facility] Tnbfeyyqtf3071 [place] [address]Dr. Swathi Reis NRBC Normal [facility] Comment on above: Performed By: #### C NGA ####[facility] Munycnneqq7576 [place], [place] [address]Sx. Swathi Reis PLT 335 103/ul Normal 150-450 [facility] Comment on above: Performed By: #### C NGA ####[facility] Nsntgqvnlr9585 [place], [place] [address]Di. Swathi Reis RBC 3.52 106/ul Critically low 4.20-5.40 [facility] Comment on above: Performed By: #### C NGA ####[facility] Fivznhvfwe7049 [place], [place] [address]Di. Swathi Reis RDW 13.5 % Normal 11.0-15.0 [facility] Comment on above: Performed By: #### C NGA ####[facility] Qgutpkunbp8496 [place], [place] [address]Tk. Swathi Reis SEG # 17.76 103/ul Critically high 1.40-6.50 [facility] Comment on above: Performed By: #### C NGA ####[facility] Fgryyboawb3552 [place], [place] [address]Eb. Swathi Reis SEG % 85.0 % Critically high 43.0-75.0 [facility] Comment on above: Performed By: #### C NGA ####[facility] Xcphozrosv1040 [place], [place] [address]Xy. Swathi Reis WBC 20.9 103/ul Critically high 4.0-11.0 [facility] Comment on above: Performed By: #### C NGA ####[facility] Ryyxjbtzaf0319 [place], [place] [address]Cm. Swathi Reis CTA CHEST WO W CONon 022 CTA CHEST WO W CON Normal The [facility] CULTURE BLOODon 07-05-2022 Microscopic examination of blood, culture Culture Observations: NO GROWTH AT 5 DAYS. Normal The [facility] Comment on above: Performed By: #### B LDCX2 ####[facility] Wngaysiqad5141 [place] [phone]. Yitracy Reis Microscopic examination of blood, culture Culture Observations: NO GROWTH AT 5 DAYS. Normal [facility] Comment on above: Performed By: #### B LDCX1 ####[facility] Jvwjaeqfpm94[address] [place] [address]Dr. Swathi Reis [facility]on 06-23 SARS-CoV-2 (COVID-19) RNA ÓSCAR+probe Ql (Unsp spec) Not detected Normal NOT DETECTED [facility] Comment on above: Result Comment: When diagnostic [...] for this test is supported by the [place] of Health and Human Service's declaration that [...] be used). Performed By: #### C VDTBH ####[facility] Wfskvubxik6939 [place] [address]Dr. Swathi Reis D-DIMERon 07-05-2022 D-DIMER 2.17 mg/L FEU Critically high <=0.59 [facility] Comment on above: Performed By: #### P T, DDIM, PTT ####[facility] Qpkiuufnjx0231 [place] [address]Dr. Inessatracy Reis D-DIMER COMMENTS SEE BELOW Normal The [facility] Comment on above: Result Comment: Incr eases [...] Performed By: #### P T, DDIM, PTT ####[facility] Talrmivxat3331 [place] [address]Dr. Swathi Reis LACTATE/LACTIC ACIDon 2021 Lactate [Moles/Vol] 2.5 mmol/L Critically high 0.4-1.9 [facility] Comment on above: Performed By: #### L ACT ####[facility] Tppfoowukg9370 [place] [address]Dr. Swathi Reis Lactate [Moles/Vol] 3.2 mmol/L Critically high 0.4-1.9 [facility] Comment on above: Performed By: #### L ACT ####[facility] Miovwfohym[address] [place], [place] [address]Dr. Swathi Reis POINT OF CARE GLUCOSEon 06-23 Glucose [Mass/Vol] 179 mg/dL Critically high 74-106 T [facility] Comment on above: Performed By: #### P OCGLUC ####[facility] Pcmnjspuyx[address] [place], [place] [address]Dr. Swathi Reis PROF 14(COMP METB)on 022 Albumin [Mass/Vol] 3.2 g/dL Critically low 3.4-5.0 [facility] Comment on above: Performed By: #### H STROPN, CMP, BNP ####[facility] Ubkvdrqqij8982 [place] [address]Dr. Swathi Reis Albumin/Globulin [Mass ratio] 0.8 {ratio} Normal [facility] Comment on above: Performed By: #### H STROPN, CMP, BNP ####[facility] Volyyjqfza1499 [place] [address]Dr. Swathi Reis ALP [Catalytic activity/Vol] 98 U/L Normal 46-116 [facility] Comment on above: Performed By: #### H STROPN, CMP, BNP ####[facility] Vpthusudak2593 [place] [address]Dr. Swathi Reis ALT [Catalytic activity/Vol] 18 U/L Normal 14-59 [facility] Comment on above: Performed By: #### H STROPN, CMP, BNP ####[facility] Alquhskhbv1641 [place] [address]Dr. Swathi Reis Anion gap [Moles/Vol] 11.5 mmol/L Normal [facility] Comment on above: Performed By: #### H STROPN, CMP, BNP ####[facility] Gqndodnxrt9264 [place] [address]Dr. Swathi Reis AST [Catalytic activity/Vol] 16 U/L Normal 15-37 [facility] Comment on above: Performed By: #### H STROPN, CMP, BNP ####[facility] Gkfxynqljt2866 [place] [address]Dr. Swathi Reis Bilirubin [Mass/Vol] 0.7 mg/dL Normal 0.2-1.0 [facility] Comment on above: Performed By: #### H STROPN, CMP, BNP ####[facility] Pcanqnicpx7708 [place] [address]Dr. Swathi Reis Calcium [Mass/Vol] 9.3 mg/dL Normal 8.5-10.1 [facility] Comment on above: Performed By: #### H STROPN, CMP, BNP ####[facility] Nsznxddqcx7459 [place] [address]Dr. Swathi Reis Chloride [Moles/Vol] 100 mmol/L Normal 98-107 [facility] Comment on above: Performed By: #### H STROPN, CMP, BNP ####[facility] Dmqqegiuvr5238 [place] [address]Dr. Swathi Reis CO2 [Moles/Vol] 29.5 mmol/L Normal 21.0-32.0 The [facility] Comment on above: Performed By: #### H STROPN, CMP, BNP ####[facility] Wrovdnsmso1648 [place] [address]Dr. Swathi Reis Creatinine [Mass/Vol] 1.66 mg/dL Critically high 0.55-1.02 [facility] Comment on above: Performed By: #### H STROPN, CMP, BNP ####[facility] Wxaheacclb8564 [place] [address]Dr. Swathi Reis EGFR-AF ANGOLAN 36 mL/min/1.73m2 Critically low >=60 [facility] Comment on above: Performed By: #### H STROPN, CMP, BNP ####[facility] Niltozuwyf5078 [place] [address]Dr. Swathi Reis EGFR-NON AF ANGOLAN 30 mL/min/1.73m2 Critically low >=60 [facility] Comment on above: Performed By: #### H STROPN, CMP, BNP ####[facility] Wiupvhtrkg[address] [place], [place] [address]Dr. Swathi Reis Globulin (S) [Mass/Vol] 4.0 g/dL Normal [facility] Comment on above: Performed By: #### H STROPN, CMP, BNP ####[facility] Ovepzqgpbt68[address] [place], [place] [address]Dr. Swathi Reis Glucose [Mass/Vol] 247 mg/dL Critically high 74-106 [facility] Comment on above: Performed By: #### H STROPN, CMP, BNP ####[facility] Lglbzcgvfq03[address] [place], [place] [address]Dr. Swathi Reis Potassium [Moles/Vol] 4.0 mmol/L Normal 3.5-5.1 [facility] Comment on above: Performed By: #### H STROPN, CMP, BNP ####[facility] L[address]jckdmcmh[address] [place], [place] [address]Dr. Swathi Reis Protein [Mass/Vol] 7.2 g/dL Normal 6.4-8.2 The [facility] Comment on above: Performed By: #### H STROPN, CMP, BNP ####[facility] Moalsxmtbw9025 [place] [address]Dr. Swathi Reis Sodium [Moles/Vol] 137 mmol/L Normal 136-145 [facility] Comment on above: Performed By: #### H STROPN, CMP, BNP ####[facility] Zjwmoixuyz0879 [place] [phone]. Swathi Reis Urea nitrogen [Mass/Vol] 22.0 mg/dL Critically high 7.0-18.0 [facility] Comment on above: Performed By: #### H STROPN, CMP, BNP ####[facility] Nknatoedjk7574 [place] [address]Dr. Swathi Reis Urea nitrogen/Creatinine [Mass ratio] 13.3 mg/mg Normal [facility] Comment on above: Performed By: #### H STROPN, CMP, BNP ####[facility] Edbcqjkbzs3083 [place] [address]Dr. Swathi Reis PROTIMEon 07-05-2022 INR Coag (PPP) [Relative time] 1.10 {INR} Normal [facility] Comment on above: Performed By: #### P T, DDIM, PTT ####[facility] J[address]he[address]ouhj[address] [place], [place] [address]Dr. Swathi Reis INR GUIDELINES SEE BELOW Normal The [facility] Comment on above: Result Comment: HARRIETT RED INR: 2.0 - 3.0 CONDITIONS NOT LISTED BELOW 2.5 - 3.5 FOR PROSTHETIC HEART VALVE REPLACEMENT 2.5 - 3.5 RECURRENT THROMBOSIS Performed By: #### P T, DDIM, PTT ####[facility] Fvrqskoqpv[address] [place], [place] [address]Dr. Swathi Reis PT Coag (PPP) [Time] 11.8 s Critically high 9.0-11.6 [facility] Comment on above: Performed By: #### P T, DDIM, PTT ####[facility] Mmudvtobwv[address] [place], [place] [address]Dr. Swathi Reis PTTon 07-05-2022 aPTT Coag (Bld) [Time] 27.2 s Normal 22.3-36.2 [facility] Comment on above: Performed By: #### P T, DDIM, PTT ####[facility] Plnhoaksbh4[address] [place], [place] [address]Dr. Swathi Reis TROPONIN, HIGH SENSITIVITYon 07-05-2022 HSTROP 16.2 pg/mL Normal 4.0-51.3 [facility] Comment on above: Result Comment: CUT- OFF POINTS HAVE BEEN ESTABLISHED BASED ON THE FOURTH UNIVERSAL DEFINITIONS OF MYOCARDIALINFARCTION. THE UPPER REFERENCE LIMIT (URL) OF TROPONIN, DEFINED THE 99TH PERCENTILE OFcTnI DISTRIBUTION IN A REFERENCE POPULATION, HAS BEEN CONFIRMED THE DECISION THRESHOLDFOR [place] DIAGNOSIS. Performed By: #### H STROPN, CMP, BNP ####[facility] Ownmvkmopz4966 [place], [place] [address]Wy. Swathi Reis XR CHEST 1 Von 07-05-2022 XR CHEST 1 V Normal [facility] MRI WRIST LT WO CONon 2021 MRI WRIST LT WO CON Normal The [facility] XR ANKLE LT MIN 3 Von 2021 XR ANKLE LT MIN 3 V Normal The [facility] XR WRIST LT MIN 3 Von 2021 XR WRIST LT MIN 3 V Normal The [facility] Progress Noteson 05-19-2022 [employer] Authentication Interface Message Text EMERGENCY TRIAGE, TREAT AND TRANSPORT (ET3) DOCUMENTATION OF TELEHEALTH VISIT Date / Time: 05/19/2022 / 1130 Name: Andrew Barros : 1945 SSN: (Not on file) EMS Agency: [facility] [x] Verbal consent obtained [] [...] Completed by: Kristian Mcwilliams MD Normal The [facility] CBC AUTO DIFFon 05-07-2022 BASO # 0.1 103/ul Normal 0.0-0.1 [facility] Comment on above: Performed By: #### C BC ####[facility] Stauxxywdi[address] [place], [place] [address]DrOtto Reis Basophils/100 WBC (Bld) 0.5 % Normal 0.2-2.0 [facility] Comment on above: Performed By: #### C BC ####[facility] Cmcaezpvos[address] [place], [place] [address]DrOtto Reis EO # 0.1 103/ul Normal 0.0-0.7 [facility] Comment on above: Performed By: #### C BC ####[facility] Szdajqpxzg[address] [place], [place] [address]DrOtto Reis Eosinophils/100 WBC (Bld) 1.1 % Normal 0.9-7.0 [facility] Comment on above: Performed By: #### C BC ####[facility] Vzugjbbyvv[address] [place], [place] [address]DrOtto Reis Erythrocyte distribution width (RBC) [Ratio] 13.2 % Normal 11.0-15.0 [facility] Comment on above: Performed By: #### C BC ####[facility] Vneoehxtxt[address] [place], [place] [address]DrOtto Reis Hematocrit (Bld) [Volume fraction] 40.9 % Normal 36.0-48.0 [facility] Comment on above: Performed By: #### C BC ####[facility] Ietlbelyfr3405 [place] [address]Dr. Swathi Reis Hemoglobin (Bld) [Mass/Vol] 12.8 g/dL Normal 12.0-16.0 [facility] Comment on above: Performed By: #### C BC ####[facility] Bzlzhohiyu4355 [place] [address]Dr. Inessatracy Reis IG # 0.04 10e3/ul Critically high 0.00-0.03 [facility] Comment on above: Performed By: #### C BC ####[facility] Asaabkilaf038[address] [place], [place] [address]Dr. Swathi Reis IG % 0.4 % Normal 0.0-0.5 [facility] Comment on above: Performed By: #### C BC ####[facility] Uhnzoqhgsh8[address] [place], [place] [address]DrOtto Reis LYMPH # 1.4 103/ul Normal 1.2-3.8 [facility] Comment on above: Performed By: #### C BC ####[facility] Fesdipjgng9[address] [place], [place] [address]DrOtto Swathi Chato Lymphocytes/100 WBC (Bld) 13.2 % Critically low 20.5-60.0 [facility] Comment on above: Performed By: #### C BC ####[facility] Qlgjrjcbmf[address] [place], [place] [address]DrOtto Inessatracy Reis MANUAL DIFF REQ NO Normal [facility] Comment on above: Performed By: #### C BC ####[facility] Efacseqyqd8034[address] [place], [place] [address]Dr. Swathi Reis MCH (RBC) [Entitic mass] 29.5 pg Normal 26.7-34.0 [facility] Comment on above: Performed By: #### C BC ####[facility] Nhclfdsbwo0[address] [place], [place] [address]Dr. Swathi Reis MCHC (RBC) [Mass/Vol] 31.3 g/dL Normal 29.9-35.2 [facility] Comment on above: Performed By: #### C BC ####[facility] Bvnttrdqsz5007 [place] [address]DrOtto Reis MCV (RBC) [Entitic vol] 94.2 fL Normal 81.0-99.0 [facility] Comment on above: Performed By: #### C BC ####[facility] Ifahatamhj6[address] [place], [place] [address]DrOtto Reis MONO # 0.9 103/ul Critically high 0.3-0.8 [facility] Comment on above: Performed By: #### C BC ####[facility] Fbqipotryi2[address] [place], [place] [address]DrOtto Reis Monocytes/100 WBC (Bld) 8.9 % Normal 1.7-12.0 [facility] Comment on above: Performed By: #### C BC ####[facility] Gbdngvzdwk[address] [place], [place] [address]DrOtto Reis NEUT # 7.8 103/ul Critically high 1.4-6.5 [facility] Comment on above: Performed By: #### C BC ####[facility] Gpcdcrmwyi9[address] [place], [place] [address]DrOtto Reis Neutrophils/100 WBC (Bld) 75.9 % Critically high 43.0-75.0 [facility] Comment on above: Performed By: #### C BC ####[facility] Vpwjsdmhwb[address] [place], [place] [address]DrOtto Reis Platelet mean volume (Bld) [Entitic vol] 10.7 fL Normal 9.5-13.5 [facility] Comment on above: Performed By: #### C BC ####[facility] Yxnnrhaumq[address] [place], [place] [address]DrOtto Reis PLT 257 103/ul Normal 150-450 [facility] Comment on above: Performed By: #### C BC ####[facility] Bpeashsvis18[address] [place], [place] [address]DrOtto Reis RBC 4.34 106/ul Normal 4.20-5.40 [facility] Comment on above: Performed By: #### C BC ####[facility] Joebrxcqvl8514 [place] [address]Dr. Swathi Reis WBC 10.2 103/ul Normal 4.0-11.0 [facility] Comment on above: Performed By: #### C BC ####[facility] Wdhhsikcxf1521 [place] [address]Dr. Swathi Reis [facility]on 04-23 SARS-CoV-2 (COVID-19) RNA ÓSCAR+probe Ql (Unsp spec) Not detected Normal NOT DETECTED [facility] Comment on above: Result Comment: This test is not yet approved or cleared by the [place] FDA. When there are no FDA-approved or cleared tests available, and other criteria are met, FDA can make tests available under an emergency access mechanism called an Emergency Use Authorization (EUA). The EUA for this test is supported by the [place] of Health and Human Service's (HHS's) declaration [...] with SARS-CoV-2. Performed By: #### C VDTBH ####[facility] Xxtsbbmeqp3718 [place], [place] [address]Bm. Swathi Reis PROF CHEM 8 (BAS METB)on Anion gap [Moles/Vol] 12.0 mmol/L Normal [facility] Comment on above: Performed By: #### B MP ####[facility] Fpdvrjlxon4444 [place] [address]Dr. Swathi Reis Calcium [Mass/Vol] 9.7 mg/dL Normal 8.5-10.1 [facility] Comment on above: Performed By: #### B MP ####[facility] Cnesfzmjbd7480 [place] [address]Dr. Swathi Chato Chloride [Moles/Vol] 102 mmol/L Normal 98-107 [facility] Comment on above: Performed By: #### B MP ####[facility] Vmjhafqwbf4908 [place] [address]Dr. Swathi Chato CO2 [Moles/Vol] 31.8 mmol/L Normal 21.0-32.0 [facility] Comment on above: Performed By: #### B MP ####[facility] Xfetwuxdcc8[address] [place], [place] [address]Dr. Inessatracy Chato Creatinine [Mass/Vol] 1.22 mg/dL Critically high 0.55-1.02 [facility] Comment on above: Performed By: #### B MP ####[facility] Hjhggqqqwz74[address] [place], [place] [address]Dr. Inessatracy Chato EGFR-AF ANGOLAN 52 mL/min/1.73m2 Critically low >=60 [facility] Comment on above: Performed By: #### B MP ####[facility] Vywjqyukkg[address] [place], [place] [address]Dr. Inessatracy Chato EGFR-NON AF ANGOLAN 43 mL/min/1.73m2 Critically low >=60 [facility] Comment on above: Performed By: #### B MP ####[facility] Gdbtkrlzlg196[address] [place], [place] [address]Dr. Inessatracy Chato Glucose [Mass/Vol] 249 mg/dL Critically high 74-106 [facility] Comment on above: Performed By: #### B MP ####[facility] Iysuifwmzs69[address] [place], [place] [address]Dr. Swathi Reis Potassium [Moles/Vol] 3.8 mmol/L Normal 3.5-5.1 [facility] Comment on above: Performed By: #### B MP ####[facility] Bgtuaxuklw[address] [place], [place] [address]Dr. Swathi Reis Sodium [Moles/Vol] 142 mmol/L Normal 136-145 [facility] Comment on above: Performed By: #### B MP ####[facility] Cqdfsfvmxc[address] [place], [place] [address]Dr. Swathi Reis Urea nitrogen [Mass/Vol] 21.0 mg/dL Critically high 7.0-18.0 [facility] Comment on above: Performed By: #### B MP ####[facility] Uiskmextkj654[address] [place], [place] [address]Dr. Swathi Reis Urea nitrogen/Creatinine [Mass ratio] 17.2 mg/mg Normal [facility] Comment on above: Performed By: #### B MP ####[facility] Myemiepzrl[address] [place], [place] [address]Dr. Swathi Reis CBC AUTO DIFFon 01-12-2022 BASO # 0.1 103/ul Normal 0.0-0.1 [facility] Comment on above: Performed By: #### C BC ####[facility] Rvtpruwllk[address] [place], [place] [address]Dr. Swathi Reis Basophils/100 WBC (Bld) 0.7 % Normal 0.2-2.0 [facility] Comment on above: Performed By: #### C BC ####[facility] Ncshcvqwwj2[address] [place], [place] [address]Dr. Swathi Reis EO # 0.3 103/ul Normal 0.0-0.7 [facility] Comment on above: Performed By: #### C BC ####[facility] Wbgqcywtrt[address] [place], [place] [address]Dr. Swathi Reis Eosinophils/100 WBC (Bld) 2.9 % Normal 0.9-7.0 [facility] Comment on above: Performed By: #### C BC ####[facility] Ibygexhegm9[address] [place], [place] [address]Dr. Swathi Reis Erythrocyte distribution width (RBC) [Ratio] 13.2 % Normal 11.0-15.0 [facility] Comment on above: Performed By: #### C BC ####[facility] Dshcrwqnuf04[address] [place], [place] [address]Dr. Swathi Reis Hematocrit (Bld) [Volume fraction] 35.9 % Critically low 36.0-48.0 [facility] Comment on above: Performed By: #### C BC ####[facility] Uzuspskvml0698 [place] [address]Dr. Swathi Reis Hemoglobin (Bld) [Mass/Vol] 11.6 g/dL Critically low 12.0-16.0 [facility] Comment on above: Performed By: #### C BC ####[facility] Hjlriewaty14[address] [place], [place] [address]Dr. Swathi Resi IG # 0.03 10e3/ul Normal 0.00-0.03 [facility] Comment on above: Performed By: #### C BC ####[facility] Gfbysaihwj[address] [place], [place] [address]Dr. Inessatracy Reis IG % 0.4 % Normal 0.0-0.5 [facility] Comment on above: Performed By: #### C BC ####[facility] Pixlyydkyl[address] [place], [place] [address]DrOtto Inessatracy Reis LYMPH # 1.5 103/ul Normal 1.2-3.8 [facility] Comment on above: Performed By: #### C BC ####[facility] Bxqqpbpgsk[address] [place], [place] [address]DrOtto Inessatracy Reis Lymphocytes/100 WBC (Bld) 17.6 % Critically low 20.5-60.0 [facility] Comment on above: Performed By: #### C BC ####[facility] Dfxmjncyuo[address] [place], [place] [address]DrOtto Inessatracy Reis MANUAL DIFF REQ NO Normal [facility] Comment on above: Performed By: #### C BC ####[facility] [address]ciibibxtc[address] [place], [place] [address]Dr. Inessatracy Reis MCH (RBC) [Entitic mass] 30.0 pg Normal 26.7-34.0 [facility] Comment on above: Performed By: #### C BC ####[facility] Afbnnxsltb[address] [place], [place] [address]Dr. Inessatracy Reis MCHC (RBC) [Mass/Vol] 32.3 g/dL Normal 29.9-35.2 [facility] Comment on above: Performed By: #### C BC ####[facility] Oxffpjtzvj[address] [place], [place] [address]DrOtto Swathi Chato MCV (RBC) [Entitic vol] 92.8 fL Normal 81.0-99.0 [facility] Comment on above: Performed By: #### C BC ####[facility] [address]zboouycr[address] [place], [place] [address]DrOtto Reis MONO # 1.1 103/ul Critically high 0.3-0.8 [facility] Comment on above: Performed By: #### C BC ####[facility] [address]wq[address] [place], [place] [address]DrOtto Reis Monocytes/100 WBC (Bld) 12.3 % Critically high 1.7-12.0 [facility] Comment on above: Performed By: #### C BC ####[facility] Vwfylzuiwn[address] [place], [place] [address]DrOtto Reis NEUT # 5.7 103/ul Normal 1.4-6.5 [facility] Comment on above: Performed By: #### C BC ####[facility] Oqpgtxsrem[address] [place], [place] [address]DrOtto Reis Neutrophils/100 WBC (Bld) 66.1 % Normal 43.0-75.0 [facility] Comment on above: Performed By: #### C BC ####[facility] Bebqhwsukr[address] [place], [place] [address]DrOtto Reis Platelet mean volume (Bld) [Entitic vol] 10.9 fL Normal 9.5-13.5 [facility] Comment on above: Performed By: #### C BC ####[facility] [address]qx[address] [place], [place] [address]DrOtto Reis PLT 246 103/ul Normal 150-450 [facility] Comment on above: Performed By: #### C BC ####[facility] Unwjhygsdn[address] [place], [place] [address]DrOtto Reis RBC 3.87 106/ul Critically low 4.20-5.40 [facility] Comment on above: Performed By: #### C BC ####[facility] [address] [place] [address]Dr. Swathi Reis WBC 8.6 103/ul Normal 4.0-11.0 [facility] Comment on above: Performed By: #### C BC ####[facility] S[address]uaijolc4[address] [place] [address]Dr. Swathi Reis CRPon 01-12-2022 CRP [Mass/Vol] mg/L Normal <=1.0 The [facility] Comment on above: Performed By: #### C MP, CRP ####[facility] Adpjayxchf[address] [place] [address]Dr. Swathi Reis POINT OF CARE GLUCOSEon 12-23 Glucose [Mass/Vol] 95 mg/dL Normal 74-106 [facility] Comment on above: Performed By: #### P OCGLUC ####[facility] Svgjtszopb6946 [place] [address]Dr. Swathi Chato PROF 14(COMP METB)on 022 Albumin [Mass/Vol] 2.9 g/dL Critically low 3.4-5.0 [facility] Comment on above: Performed By: #### C MP, CRP ####[facility] Bpypgnzioz7[address] [place] [address]Dr. Swathi Reis Albumin/Globulin [Mass ratio] 0.8 {ratio} Normal [facility] Comment on above: Performed By: #### C MP, CRP ####[facility] Fijzrtcmgz6[address] [place] [address]Dr. Swathi Reis ALP [Catalytic activity/Vol] 91 U/L Normal 46-116 [facility] Comment on above: Performed By: #### C MP, CRP ####[facility] Ywdxtupcun[address] [place] [address]Dr. Swathi Reis ALT [Catalytic activity/Vol] 18 U/L Normal 14-59 [facility] Comment on above: Performed By: #### C MP, CRP ####[facility] Zbpedkisze[address] [place], [place] [address]Dr. Swathi Reis Anion gap [Moles/Vol] 9.1 mmol/L Normal [facility] Comment on above: Performed By: #### C MP, CRP ####[facility] Hmtpgmqelg5[address] [place], [place] [address]Dr. Swathi Reis AST [Catalytic activity/Vol] 17 U/L Normal 15-37 [facility] Comment on above: Performed By: #### C MP, CRP ####[facility] Bizwrpnijg89[address] [place], [place] [address]Dr. Swathi Reis Bilirubin [Mass/Vol] 0.6 mg/dL Normal 0.2-1.3 [facility] Comment on above: Performed By: #### C MP, CRP ####[facility] Yslpzspjal[address] [place], [place] [address]Dr. Swathi Reis Calcium [Mass/Vol] 8.6 mg/dL Normal 8.5-10.1 [facility] Comment on above: Performed By: #### C MP, CRP ####[facility] [address]zzcbzjswy67[address] [place], [place] [address]Dr. Swathi Reis Chloride [Moles/Vol] 104 mmol/L Normal 98-107 [facility] Comment on above: Performed By: #### C MP, CRP ####[facility] Ilpfcxlllr6[address] [place], [place] [address]Dr. Swathi Reis CO2 [Moles/Vol] 32.1 mmol/L Critically high 22.0-30.0 [facility] Comment on above: Performed By: #### C MP, CRP ####[facility] Trpouhwiyc[address] [place], [place] [address]Dr. Swathi Reis Creatinine [Mass/Vol] 0.96 mg/dL Normal 0.52-1.04 [facility] Comment on above: Performed By: #### C MP, CRP ####[facility] Hatgckogud8[address] [place], [place] [address]Dr. Swathi Reis EGFR-AF ANGOLAN >60 Normal >=60 [facility] Comment on above: Performed By: #### C MP, CRP ####[facility] Hypilxgfpl037[address] [place] [address]Dr. Swathi Reis EGFR-NON AF ANGOLAN 56 mL/min/1.73m2 Critically low >=60 [facility] Comment on above: Performed By: #### C MP, CRP ####[facility] Uhevwpqces0679 [place] [address]Dr. Swathi Reis Globulin (S) [Mass/Vol] 3.5 g/dL Normal [facility] Comment on above: Performed By: #### C MP, CRP ####[facility] Ghsnyyyfwo9016 [place] [address]Dr. Swathi Reis Glucose [Mass/Vol] 114 mg/dL Critically high 74-106 [facility] Comment on above: Performed By: #### C MP, CRP ####[facility] Qqyawfgmax5960 [place] [address]Dr. Swathi Reis Potassium [Moles/Vol] 3.2 mmol/L Critically low 3.4-5.0 [facility] Comment on above: Performed By: #### C MP, CRP ####[facility] Jbbezolpus7443 [place] [address]Dr. Swathi Reis Protein [Mass/Vol] 6.4 g/dL Normal 6.1-8.2 [facility] Comment on above: Performed By: #### C MP, CRP ####[facility] Czpprjadve6213 [place] [address]Dr. Swathi Reis Sodium [Moles/Vol] 142 mmol/L Normal 137-145 [facility] Comment on above: Performed By: #### C MP, CRP ####[facility] Sezrbaanwv2881 [place] [address]Dr. Swathi Reis Urea nitrogen [Mass/Vol] 20.0 mg/dL Critically high 7.0-18.0 [facility] Comment on above: Performed By: #### C MP, CRP ####[facility] Wrdtwyyscd4905 [place] [address]Dr. Swathi Reis Urea nitrogen/Creatinine [Mass ratio] 20.8 mg/mg Normal [facility] Comment on above: Performed By: #### C MP, CRP ####[facility] Tmbljcpasp42[address] [place], [place] [address]Dr. Swathi Reis T3, TOTAL (TRIIODOTHYRONINE) on 01-12-2022 T3, TOTAL 79 ng/dL Normal 71-180 [facility] Comment on above: Performed By: #### T 3TOTAL ####[facility] Svregctfik20[address] [place], [place] [address]Dr. Swathi Reis CBC AUTO DIFFon 01-11-2022 BASO # 0.1 103/ul Normal 0.0-0.1 [facility] Comment on above: Performed By: #### C BC ####[facility] Qcqlbhobuy89[address] [place], [place] [address]Dr. Swathi Reis Basophils/100 WBC (Bld) 0.5 % Normal 0.2-2.0 [facility] Comment on above: Performed By: #### C BC ####[facility] Dgqukajvlr9[address] [place], [place] [address]Dr. Swathi Reis EO # 0.1 103/ul Normal 0.0-0.7 [facility] Comment on above: Performed By: #### C BC ####[facility] Tryxelgvhz15[address] [place], [place] [address]Dr. Swathi Reis Eosinophils/100 WBC (Bld) 1.1 % Normal 0.9-7.0 [facility] Comment on above: Performed By: #### C BC ####[facility] Onnnccyzgi3[address] [place], [place] [address]Dr. Swathi Reis Erythrocyte distribution width (RBC) [Ratio] 13.1 % Normal 11.0-15.0 [facility] Comment on above: Performed By: #### C BC ####[facility] Skmxopybil209[address] [place], [place] [address]Dr. Swathi Reis Hematocrit (Bld) [Volume fraction] 39.1 % Normal 36.0-48.0 [facility] Comment on above: Performed By: #### C BC ####[facility] Jewyahcqcz[address] [place], [place] [address]Dr. Swathi Chato Hemoglobin (Bld) [Mass/Vol] 12.7 g/dL Normal 12.0-16.0 [facility] Comment on above: Performed By: #### C BC ####[facility] Jusyxoyepd35[address] [place] [address]Dr. Inessatracy Reis IG # 0.04 10e3/ul Critically high 0.00-0.03 The [facility] Comment on above: Performed By: #### C BC ####[facility] Fzmikfctfj0085 [place] [address]Dr. Swathi Reis IG % 0.4 % Normal 0.0-0.5 [facility] Comment on above: Performed By: #### C BC ####[facility] Jkhwqparrc8264 [place] [address]DrOtto Reis LYMPH # 1.4 103/ul Normal 1.2-3.8 [facility] Comment on above: Performed By: #### C BC ####[facility] Zmnjiaxmen6441 [place] [address]Dr. Swathi Reis Lymphocytes/100 WBC (Bld) 12.4 % Critically low 20.5-60.0 [facility] Comment on above: Performed By: #### C BC ####[facility] Cqscyjxlzy5768 [place] [address]Dr. Inessatracy Reis MANUAL DIFF REQ NO Normal [facility] Comment on above: Performed By: #### C BC ####[facility] Pjeaungyka[address] [place] [address]DrOtto Swathi Chato MCH (RBC) [Entitic mass] 30.0 pg Normal 26.7-34.0 [facility] Comment on above: Performed By: #### C BC ####[facility] Wxwsegzqav4692 [place] [address]DrOtto Swathi Chato MCHC (RBC) [Mass/Vol] 32.5 g/dL Normal 29.9-35.2 [facility] Comment on above: Performed By: #### C BC ####[facility] Eyurpmjlyx4364 [place] [address]Dr. Swathi Reis MCV (RBC) [Entitic vol] 92.4 fL Normal 81.0-99.0 [facility] Comment on above: Performed By: #### C BC ####[facility] Cqfkcwmzlm0235 [place] [address]Dr. Swathi Chato MONO # 1.1 103/ul Critically high 0.3-0.8 [facility] Comment on above: Performed By: #### C BC ####[facility] Joefvdxbwo4994 [place] [address]Dr. Swathi Reis Monocytes/100 WBC (Bld) 10.1 % Normal 1.7-12.0 [facility] Comment on above: Performed By: #### C BC ####[facility] Zfxvgmtoqt5[address] [place], [place] [address]Dr. Inessatracy Chato NEUT # 8.3 103/ul Critically high 1.4-6.5 [facility] Comment on above: Performed By: #### C BC ####[facility] Yqampvlrga62[address] [place], [place] [address]Dr. Swathi Reis Neutrophils/100 WBC (Bld) 75.5 % Critically high 43.0-75.0 [facility] Comment on above: Performed By: #### C BC ####[facility] Oghcpnmeer034[address] [place] [address]Dr. Swathi Reis Platelet mean volume (Bld) [Entitic vol] 11.3 fL Normal 9.5-13.5 [facility] Comment on above: Performed By: #### C BC ####[facility] Tqxrffzwif[address] [place], [place] [address]Dr. Swathi Reis PLT 292 103/ul Normal 150-450 [facility] Comment on above: Performed By: #### C BC ####[facility] [address]zdpocdkae[address] [place], [place] [address]Dr. Swathi Reis RBC 4.23 106/ul Normal 4.20-5.40 [facility] Comment on above: Performed By: #### C BC ####[facility] Twrthzkmzs[address] [place], [place] [address]Dr. Swathi Reis WBC 11.0 103/ul Normal 4.0-11.0 [facility] Comment on above: Performed By: #### C BC ####[facility] Gjtbcuzflu3396 [place], [place] [address]Jf. Swathi Reis CT HEAD WO CONon 01-11-2022 CT HEAD WO CON Normal [facility] CULTURE URINEon 01-11-2022 CULTURE URINE Culture Observations : LIGHT GROWTH OF MIXED GENITAL ELEONORA. NO POTENTIAL PATHOGENS SEEN. Normal [facility] Comment on above: Performed By: #### U RCX ####[facility] Ngfifyfkne5334 [place], [place] [address]Ql. Swathi Reis Covid-19 PCR ([facility])on 12-23 SARS-CoV-2 (COVID-19) RNA ÓSCAR+probe Ql (Unsp spec) Not detected Normal NOT DETECTED [facility] Comment on above: Result Comment: When diagnostic [...] for this test is supported by the [place] of Health and Human Service's declaration that [...] be used). Performed By: #### C VDTBH ####[facility] Hvhmggvxpt3563 [place], [place] [address]Fe. wSathi Reis EEGon 01-11-2022 EEG Normal [facility] ER URINE PROFILEon Bilirubin Ql (U) Negative Normal NEGATIVE The [facility] Comment on above: Performed By: #### E RUR ####[facility] Jnqbjuekap69[address] [place] [address]Dr. Swathi Reis Clarity (U) CLEAR Normal CLEAR [facility] Comment on above: Performed By: #### E RUR ####[facility] Drfnrykzie20[address] [place], [place] [address]Dr. Swathi Reis Color (U) LT. YELLOW Normal YELLOW [facility] Comment on above: Performed By: #### E RUR ####[facility] Ljmnfrobpy15[address] [place], [place] [address]Dr. Swathi Reis ERUAHD A micrscopic examina tion will be performed if indicated. Normal [facility] Comment on above: Performed By: #### E RUR ####[facility] Hnlugjvggx[address] [place], [place] [address]Dr. Swathi Reis Glucose Ql (U) Negative Normal NEGATIVE The [facility] Comment on above: Performed By: #### E RUR ####[facility] Jhklkxptnv[address] [place], [place] [address]Dr. Swathi Reis Hemoglobin Ql (U) Negative Normal NEGATIVE [facility] Comment on above: Performed By: #### E RUR ####[facility] Dhycvhitoj29[address] [place], [place] [address]Dr. Swathi Reis Ketones Ql (U) Negative Normal NEGATIVE [facility] Comment on above: Performed By: #### E RUR ####[facility] Whxytkbgqx89[address] [place], [place] [address]Dr. Swathi Reis LEUKOCYTES Negative Normal NEGATIVE [facility] Comment on above: Performed By: #### E RUR ####[facility] Rvglbzbnfd23[address] [place], [place] [address]Dr. Swathi Reis Nitrite Ql (U) Negative Normal NEGATIVE [facility] Comment on above: Performed By: #### E RUR ####[facility] Prxolfmmhb7[address] [place], [place] [address]Dr. Swathi Reis pH (U) 6.0 [pH] Normal 5-9 [facility] Comment on above: Performed By: #### E RUR ####[facility] Jqnswqaxny0538 [place] [address]Dr. Swathi Reis SPEC GRAVITY 1.010 Normal 1.005-<=1.0 25 [facility] Comment on above: Performed By: #### E RUR ####[facility] Tosawlpwsn[address] [place], [place] [address]Dr. Swathi Reis UA PROTEIN Negative Normal NEGATIVE/ TRACE [facility] Comment on above: Performed By: #### E RUR ####[facility] Ojyysxhlgn70[address] [place], [place] [address]Dr. Swathi Reis UR MICRO IND NOT INDICATED Normal [facility] Comment on above: Performed By: #### E RUR ####[facility] Qcsotbgvsx9375[address] [place], [place] [address]Dr. Swathi Reis Urobilinogen Qn (U) 0.2 {Sánchez'U}/dL Normal 0.2 - 1. 0 [facility] Comment on above: Performed By: #### E RUR ####[facility] [address]pdzilq[address] [place], [place] [address]Dr. Swathi Reis LACTATE/LACTIC ACIDon 2021 Lactate [Moles/Vol] 0.9 mmol/L Normal 0.7-2.0 [facility] Comment on above: Performed By: #### L ACT ####[facility] Yrozrzwawa[address] [place], [place] [address]Dr. Swathi Reis Lactate [Moles/Vol] 0.9 mmol/L Normal 0.7-2.0 The [facility] Comment on above: Performed By: #### L ACT ####[facility] Ghpeavfzii[address] [place], [place] [address]Dr. Swathi Reis POINT OF CARE GLUCOSEon 12-23 Glucose [Mass/Vol] 175 mg/dL Critically high 74-106 [facility] Comment on above: Performed By: #### P OCGLUC ####[facility] Wh[address]psfwoi[address] [place], [place] [address]Dr. Swathi Reis Glucose [Mass/Vol] 116 mg/dL Critically high 74-106 [facility] Comment on above: Performed By: #### P OCGLUC ####[facility] Ryichhkkmm52[address] [place] [address]Dr. Swathi Reis PROF 14(COMP METB)on 022 Albumin [Mass/Vol] 3.3 g/dL Critically low 3.4-5.0 [facility] Comment on above: Performed By: #### H STROPN, CMP ####[facility] Aipvbybsgk40[address] [place] [address]Dr. Swathi Reis Albumin/Globulin [Mass ratio] 0.8 {ratio} Normal [facility] Comment on above: Performed By: #### H STROPN, CMP ####[facility] Pijfhgyklm44[address] [place] [address]Dr. Swathi Reis ALP [Catalytic activity/Vol] 110 U/L Normal 46-116 [facility] Comment on above: Performed By: #### H STROPN, CMP ####[facility] Kqknfvhqnf4254 [place] [address]Dr. Swathi Reis ALT [Catalytic activity/Vol] 20 U/L Normal 14-59 [facility] Comment on above: Performed By: #### H STROPN, CMP ####[facility] Jvsgaegwzw1418 [place] [address]Dr. Swathi Reis Anion gap [Moles/Vol] 15.9 mmol/L Normal [facility] Comment on above: Performed By: #### H STROPN, CMP ####[facility] Wskmbspjzz0844 [place] [address]Dr. Swathi Reis AST [Catalytic activity/Vol] 24 U/L Normal 15-37 [facility] Comment on above: Performed By: #### H STROPN, CMP ####[facility] Xwpvwssric9477 [place] [address]Dr. Swathi Reis Bilirubin [Mass/Vol] 0.5 mg/dL Normal 0.2-1.3 [facility] Comment on above: Performed By: #### H STROPN, CMP ####[facility] Tkfyeguzcy5682 [place] [address]Dr. Swathi Reis Calcium [Mass/Vol] 9.5 mg/dL Normal 8.5-10.1 [facility] Comment on above: Performed By: #### H RAFFI, CMP ####[facility] Wsvriyjjby7170 [place] [address]Dr. Swathi Reis Chloride [Moles/Vol] 100 mmol/L Normal 98-107 [facility] Comment on above: Performed By: #### H STROPN, CMP ####[facility] Rujzkkcvyi1768 [place] [address]Dr. Inessatracy Reis CO2 [Moles/Vol] 27.8 mmol/L Normal 22.0-30.0 [facility] Comment on above: Performed By: #### H RAFFI, CMP ####[facility] Fqnmoddvkm00[address] [place], [place] [address]Dr. Inessatracy Reis Creatinine [Mass/Vol] 1.21 mg/dL Critically high 0.52-1.04 [facility] Comment on above: Performed By: #### H RAFFI, CMP ####[facility] [address]ppwyekt18[address] [place], [place] [address]Dr. Inessatracy Chato EGFR-AF ANGOLAN 52 mL/min/1.73m2 Critically low >=60 [facility] Comment on above: Performed By: #### H RAFFI, CMP ####[facility] [address]fqfayo[address] [place], [place] [address]Dr. Inessatracy Chato EGFR-NON AF ANGOLAN 43 mL/min/1.73m2 Critically low >=60 [facility] Comment on above: Performed By: #### H STROPN, CMP ####[facility] Awfcggtfpl0[address] [place], [place] [address]Dr. Swathi Reis Globulin (S) [Mass/Vol] 4.1 g/dL Normal [facility] Comment on above: Performed By: #### H NIGHATPN, CMP ####[facility] Sgiiepnnhd[address] [place], [place] [address]Dr. Swathi Reis Glucose [Mass/Vol] 195 mg/dL Critically high 74-106 [facility] Comment on above: Performed By: #### H STROPN, CMP ####[facility] W[address]jsnfl[address] [place], [place] [id number]. Swathi Reis Potassium [Moles/Vol] 3.7 mmol/L Normal 3.4-5.0 [facility] Comment on above: Performed By: #### H RAFFI, CMP ####[facility] Ouvwkfihzr8725 [place] [address]Dr. Swathi Reis Protein [Mass/Vol] 7.4 g/dL Normal 6.1-8.2 [facility] Comment on above: Performed By: #### H RAFFI, CMP ####[facility] Xhzqoouwil8754 [place] [address]Dr. Swathi Reis Sodium [Moles/Vol] 140 mmol/L Normal 137-145 [facility] Comment on above: Performed By: #### H RAFFI, CMP ####[facility] Mxyqxehezp4341 [place] [address]Dr. Swathi Reis Urea nitrogen [Mass/Vol] 22.0 mg/dL Critically high 7.0-18.0 [facility] Comment on above: Performed By: #### H RAFFI, CMP ####[facility] Jqobfirwdk2708 [place] [address]Dr. Swathi Reis Urea nitrogen/Creatinine [Mass ratio] 18.2 mg/mg Normal [facility] Comment on above: Performed By: #### H RAFFI, CMP ####[facility] Nurbuaoxxg9660 [place] [address]Dr. Swathi Reis T4on 01-11-2022 T4 [Mass/Vol] 9.10 ug/dL Normal 5.53-11.00 The [facility] Comment on above: Performed By: #### T SH, T4 ####[facility] Tfrzpmkbia9243 [place] [address]Dr. Swathi Reis TROPONIN, HIGH SENSITIVITYon 01-11-2022 HSTROP 13.7 pg/mL Normal 4.0-35.5 [facility] Comment on above: Result Comment: CUT- OFF POINTS HAVE BEEN ESTABLISHED BASED ON THE FOURTH UNIVERSAL DEFINITIONS OF MYOCARDIALINFARCTION. THE UPPER REFERENCE LIMIT (URL) OF TROPONIN, DEFINED THE 99TH PERCENTILE OFcTnI DISTRIBUTION IN A REFERENCE POPULATION, HAS BEEN CONFIRMED THE DECISION THRESHOLDFOR [place] DIAGNOSIS. Performed By: #### H STROPN, CMP ####[facility] [address]jnagbitp[address] [place], [place] [address]Dr. Swathi Reis TSHon 01-11-2022 TSH 2.618 uIU/mL Normal 0.470-4.680 The [facility] Comment on above: Performed By: #### T SH, T4 ####[facility] [address]xejkchz[address] [place], [place] [address]Dr. Swathi Reis TSH RANGE SEE BELOW Normal [facility] Comment on above: Result Comment: <0.3 4 UIU/ml HYPERTHYROID 0.34-5.60 UIU/ml EUTHYROID >5.60 UIU/ml HYPOTHYROID Performed By: #### T SH, T4 ####[facility] Xzaossatyy13[address] [place], [place] [address]Dr. Swathi Reis CBC AUTO DIFFon 01-09-2022 BASO # 0.1 103/ul Normal 0.0-0.1 [facility] Comment on above: Performed By: #### C BC ####[facility] [address]avnkmodm[address] [place], [place] [address]Dr. Swathi Reis Basophils/100 WBC (Bld) 0.6 % Normal 0.2-2.0 [facility] Comment on above: Performed By: #### C BC ####[facility] Hlfinhbizr[address] [place], [place] [address]Dr. Swathi Reis EO # 0.2 103/ul Normal 0.0-0.7 [facility] Comment on above: Performed By: #### C BC ####[facility] Afnqusplxc[address] [place], [place] [address]Dr. Swathi Reis Eosinophils/100 WBC (Bld) 2.7 % Normal 0.9-7.0 [facility] Comment on above: Performed By: #### C BC ####[facility] Risnwrpesg[address] [place], [place] [address]Dr. Swathi Reis Erythrocyte distribution width (RBC) [Ratio] 13.2 % Normal 11.0-15.0 [facility] Comment on above: Performed By: #### C BC ####[facility] Ldabmmpusl6504 [place] [address]Dr. Swathi Reis Hematocrit (Bld) [Volume fraction] 39.7 % Normal 36.0-48.0 [facility] Comment on above: Performed By: #### C BC ####[facility] Wuhltobblj4276 [place] [address]Dr. Swathi Reis Hemoglobin (Bld) [Mass/Vol] 12.7 g/dL Normal 12.0-16.0 [facility] Comment on above: Performed By: #### C BC ####[facility] Ycytijnrot23[address] [place], [place] [address]Dr. Swathi Reis IG # 0.04 10e3/ul Critically high 0.00-0.03 [facility] Comment on above: Performed By: #### C BC ####[facility] R[address]zndvzmt[address] [place], [place] [address]Dr. Inessatracy Reis IG % 0.4 % Normal 0.0-0.5 [facility] Comment on above: Performed By: #### C BC ####[facility] Ywexwkprph[address] [place], [place] [address]Dr. Swathi Chato LYMPH # 1.4 103/ul Normal 1.2-3.8 [facility] Comment on above: Performed By: #### C BC ####[facility] [address]izwpzjub[address] [place], [place] [address]Dr. Swathi Chato Lymphocytes/100 WBC (Bld) 15.9 % Critically low 20.5-60.0 [facility] Comment on above: Performed By: #### C BC ####[facility] Yompxoylhj[address] [place], [place] [address]Dr. Inessatracy Reis MANUAL DIFF REQ NO Normal [facility] Comment on above: Performed By: #### C BC ####[facility] [address]zukdjhtx4639 [place] [address]Dr. Swathi Chato MCH (RBC) [Entitic mass] 30.0 pg Normal 26.7-34.0 [facility] Comment on above: Performed By: #### C BC ####[facility] Coolubptqf38[address] [place] [id number]. Swathi Chato MCHC (RBC) [Mass/Vol] 32.0 g/dL Normal 29.9-35.2 [facility] Comment on above: Performed By: #### C BC ####[facility] [address]orgsy[address] [place] [id number]. Swathi Chato MCV (RBC) [Entitic vol] 93.9 fL Normal 81.0-99.0 [facility] Comment on above: Performed By: #### C BC ####[facility] Enxhgorblm1834 [place] [id number]. Inessatracy Chato MONO # 0.9 103/ul Critically high 0.3-0.8 [facility] Comment on above: Performed By: #### C BC ####[facility] [address] [place], [place] [address]Dr. Swathi Reis Monocytes/100 WBC (Bld) 9.7 % Normal 1.7-12.0 [facility] Comment on above: Performed By: #### C BC ####[facility] Eniklboy[address] [place], [place] [id number]. Swathi Chato NEUT # 6.3 103/ul Normal 1.4-6.5 [facility] Comment on above: Performed By: #### C BC ####[facility] [address] [place], [place] [address]Dr. Swathi Reis Neutrophils/100 WBC (Bld) 70.7 % Normal 43.0-75.0 [facility] Comment on above: Performed By: #### C BC ####[facility] [address] [place], [place] [address]Dr. Swathi Reis Platelet mean volume (Bld) [Entitic vol] 10.7 fL Normal 9.5-13.5 [facility] Comment on above: Performed By: #### C BC ####[facility] Nbi[address] [place], [place] [id number]. Swathi Reis PLT 269 103/ul Normal 150-450 [facility] Comment on above: Performed By: #### C BC ####[facility] Hktayjjhyt[address] [place] [id number]. Swathi Reis RBC 4.23 106/ul Normal 4.20-5.40 [facility] Comment on above: Performed By: #### C BC ####[facility] Odfyeptrua[address] [place] [id number]. Swtahi Reis WBC 8.9 103/ul Normal 4.0-11.0 [facility] Comment on above: Performed By: #### C BC ####[facility] Ibbhfztnen0890 [place] [id number]. Swathi Reis FREE T3on 01-09-2022 FREE T3 2.19 pg/mlL Critically low 2.77-5.27 [facility] Comment on above: Performed By: #### T SH, T4, FT3, LIPID, CMP ####[facility] [address]xy[address] [place] [address]Dr. Swathi Reis GLYCOHEMOGLOBIN A1Con 2021 ADA RECOMMENDATION ADA THERAPEUTIC TARG ET 6.0 - 7.0 ACTION SUGGESTED > 7.0 Normal [facility] Comment on above: Performed By: #### A 1C ####[facility] [address] [place] [address]Dr. Swathi Reis Glucose [Mass/Vol] 137 mg/dL Normal [facility] Comment on above: Performed By: #### A 1C ####[facility] Zutetseahm[address] [place] [address]Dr. Swathi Reis HbA1c (Bld) [Mass fraction] 6.4 % Critically high <=6.0 [facility] Comment on above: Performed By: #### A 1C ####[facility] [address]pvvqwloy[address] [place] [address]Dr. Swathi Reis LIPID PROFILEon 01-09-2022 CHOL-HDL RATIO NORM SEE BELOW Normal [facility] Comment on above: Result Comment: 3.3 - 4.4 LOW RISK 4.4 - 7.1 AVERAGE RISK 7.1 - 11.0 MODERATE RISK >11.0 HIGH RISK Performed By: #### T SH, T4, FT3, LIPID, CMP ####[facility] S[address]mscf[address] [place] [id number]. Swathi Reis Cholesterol [Mass/Vol] 238 mg/dL Critically high <=200 [facility] Comment on above: Performed By: #### T SH, T4, FT3, LIPID, CMP ####[facility] [address]kl[address]kv[address] [place] [address]Dr. Swathi Reis Cholesterol in HDL [Mass/Vol] 95 mg/dL Critically high 40-60 [facility] Comment on above: Performed By: #### T SH, T4, FT3, LIPID, CMP ####[facility] Qrxmdfblhh[address] [place] [address]Dr. Swathi Reis Cholesterol in LDL [Mass/Vol] 121.0 mg/dL Normal [facility] Comment on above: Performed By: #### T SH, T4, FT3, LIPID, CMP ####[facility] Edjcuswlew[address] [place] [address]Dr. Swathi Reis Cholesterol.total/Ch olesterol in HDL [Mass ratio] 2.5 {ratio} Normal [facility] Comment on above: Performed By: #### T SH, T4, FT3, LIPID, CMP ####[facility] Irnpiktgbt[address] [place] [address]Dr. Swathi Reis HDL NORMAL > or = 60 mg/dl - LO W CARDIOVASCULAR RISK <40 mg/dl - HIGH CARDIOVASCULAR RISK Normal [facility] Comment on above: Performed By: #### T SH, T4, FT3, LIPID, CMP ####[facility] Gxeqdwligm[address] [place] [address]Dr. Swathi Reis LDL CALC NORMAL SEE BELOW Normal [facility] Comment on above: Result Comment: <100 mg/dl OPTIMAL 100 - 129 mg/dl NEAR OR ABOVE OPTIMAL 130 - 159 mg/dl BORDERLINE HIGH 160 - 189 mg/dl HIGH >190 mg/dl VERY HIGH Performed By: #### T SH, T4, FT3, LIPID, CMP ####[facility] [address] [place] [address]Dr. Swathi Reis Triglyceride [Mass/Vol] 110 mg/dL Normal <=150 [facility] Comment on above: Performed By: #### T SH, T4, FT3, LIPID, CMP ####[facility] [address]ytfwe[address] [place] [address]Dr. Swathi Reis VLDL CALC 22.0 mg/dL Normal [facility] Comment on above: Performed By: #### T SH, T4, FT3, LIPID, CMP ####[facility] Rytbmyunxr[address] [place] [address]Dr. Swathi Reis PROF 14(COMP METB)on 022 Albumin [Mass/Vol] 3.5 g/dL Normal 3.4-5.0 [facility] Comment on above: Performed By: #### T SH, T4, FT3, LIPID, CMP ####[facility] Ivdwlrocnv98[address] [place] [address]Dr. Swathi Reis Albumin/Globulin [Mass ratio] 0.9 {ratio} Normal [facility] Comment on above: Performed By: #### T SH, T4, FT3, LIPID, CMP ####[facility] C[address]qjhtfbn[address] [place] [address]Dr. Swathi Reis ALP [Catalytic activity/Vol] 112 U/L Normal 46-116 [facility] Comment on above: Performed By: #### T SH, T4, FT3, LIPID, CMP ####[facility] Ugavfftumb[address] [place] [address]Dr. Swathi Reis ALT [Catalytic activity/Vol] 14 U/L Normal 14-59 [facility] Comment on above: Performed By: #### T SH, T4, FT3, LIPID, CMP ####[facility] Yhuhmyqzva[address] [place] [address]Dr. Swathi Reis Anion gap [Moles/Vol] 10.4 mmol/L Normal [facility] Comment on above: Performed By: #### T SH, T4, FT3, LIPID, CMP ####[facility] Eudkfwmenf[address] [place] [address]Dr. Swathi Reis AST [Catalytic activity/Vol] 18 U/L Normal 15-37 [facility] Comment on above: Performed By: #### T SH, T4, FT3, LIPID, CMP ####[facility] Kz[address]uaorhh[address] [place] [address]Dr. Swathi Reis Bilirubin [Mass/Vol] 0.6 mg/dL Normal 0.2-1.3 [facility] Comment on above: Performed By: #### T SH, T4, FT3, LIPID, CMP ####[facility] En[address]cef[address] [place], [place] [address]Dr. Swathi Reis Calcium [Mass/Vol] 9.4 mg/dL Normal 8.5-10.1 [facility] Comment on above: Performed By: #### T SH, T4, FT3, LIPID, CMP ####[facility] [address] [place], [place] [address]Dr. Swathi Reis Chloride [Moles/Vol] 101 mmol/L Normal 98-107 [facility] Comment on above: Performed By: #### T SH, T4, FT3, LIPID, CMP ####[facility] T[address] [place], [place] [address]Dr. Swathi Reis CO2 [Moles/Vol] 33.2 mmol/L Critically high 22.0-30.0 [facility] Comment on above: Performed By: #### T SH, T4, FT3, LIPID, CMP ####[facility] Podzaccrcv[address] [place], [place] [address]Dr. Swathi Reis Creatinine [Mass/Vol] 1.13 mg/dL Critically high 0.52-1.04 [facility] Comment on above: Performed By: #### T SH, T4, FT3, LIPID, CMP ####[facility] Nsexgolu[address] [place], [place] [address]Dr. Swathi Reis EGFR-AF ANGOLAN 57 mL/min/1.73m2 Critically low >=60 [facility] Comment on above: Performed By: #### T SH, T4, FT3, LIPID, CMP ####[facility] [address]ekxf[address] [place], [place] [address]Dr. Swathi Reis EGFR-NON AF ANGOLAN 47 mL/min/1.73m2 Critically low >=60 [facility] Comment on above: Performed By: #### T SH, T4, FT3, LIPID, CMP ####[facility] Xhnslzvjdz[address] [place] [address]Dr. Swathi Reis Globulin (S) [Mass/Vol] 4.1 g/dL Normal [facility] Comment on above: Performed By: #### T SH, T4, FT3, LIPID, CMP ####[facility] Tbetpdqqkv98[address] [place] [address]Dr. Swathi Reis Glucose [Mass/Vol] 144 mg/dL Critically high 74-106 [facility] Comment on above: Performed By: #### T SH, T4, FT3, LIPID, CMP ####[facility] [address] [place], [place] [address]Dr. Swathi Reis Potassium [Moles/Vol] 3.6 mmol/L Normal 3.4-5.0 [facility] Comment on above: Performed By: #### T SH, T4, FT3, LIPID, CMP ####[facility] [address] [place], [place] [address]Dr. Swathi Reis Protein [Mass/Vol] 7.6 g/dL Normal 6.1-8.2 [facility] Comment on above: Performed By: #### T SH, T4, FT3, LIPID, CMP ####[facility] K[address]uciiswsk[address] [place] [address]Dr. Swathi Reis Sodium [Moles/Vol] 141 mmol/L Normal 137-145 [facility] Comment on above: Performed By: #### T SH, T4, FT3, LIPID, CMP ####[facility] [address]ph[address] [place] [address]Dr. Swathi Reis Urea nitrogen [Mass/Vol] 22.0 mg/dL Critically high 7.0-18.0 [facility] Comment on above: Performed By: #### T SH, T4, FT3, LIPID, CMP ####[facility] Iceovlxwbn[address] [place] [address]Dr. Swathi Reis Urea nitrogen/Creatinine [Mass ratio] 19.5 mg/mg Normal [facility] Comment on above: Performed By: #### T SH, T4, FT3, LIPID, CMP ####[facility] [address] [place] [address]Dr. Swathi Reis T4on 01-09-2022 T4 [Mass/Vol] 8.80 ug/dL Normal 5.53-11.00 The [facility] Comment on above: Performed By: #### T SH, T4, FT3, LIPID, CMP ####[facility] [address] [place], [place] [address]Dr. Swathi Reis TSHon 01-09-2022 TSH 3.176 uIU/mL Normal 0.470-4.680 [facility] Comment on above: Performed By: #### T SH, T4, FT3, LIPID, CMP ####[facility] Juspaf[address] [place], [place] [address]Dr. Inessatracy Reis TSH RANGE SEE BELOW Normal [facility] Comment on above: Result Comment: <0.3 4 UIU/ml HYPERTHYROID 0.34-5.60 UIU/ml EUTHYROID >5.60 UIU/ml HYPOTHYROID Performed By: #### T SH, T4, FT3, LIPID, CMP ####[facility] [address]jnmb[address] [place], [place] [address]Dr. Swathi Reis VITAMIN D 25 OHon 01-09-2022 VIT D 25-OH 64.4 ng/mL Normal [facility] Comment on above: Performed By: #### V ITAD ####[facility] Y[address] [place], [place] [address]Dr. Swathi Reis VIT D RANGES SEE BELOW Normal [facility] Comment on above: Result Comment: <20 ng/mL Vit D deficient 20 - <30 ng/mL Vit D insufficient 30 - 100 ng/mL Vit D sufficient >100 ng/mL Potential Toxicity Performed By: #### V ITAD ####[facility] [address] [place], [place] [address]Dr. Swathi Reis MG MAMM DIAGNOSTIC 3D GISELE CA Don 01-05-2022 MG MAMM DIAGNOSTIC 3D GISELE CAD Normal [facility] CT head/brain wo conon 12-27 CT head/brain wo con [facility] Main [place] [address] [place] [address] CT Scan Report Signed Patient: Andrew Barros MR#: [id number] : 1945 Acct:[id number] Age/Sex: 76 / F ADM Date: 12/27/21 Loc: CT Room: Type: [facility] Attending Dr: Brayden Hernandez MD Ordering [...] Cameron Jr., M.D.12/27/2021 1:17 PM Dictation Location: [place] [address] Transcribed By: [facility] 12/27/21 1317 Dictated By: Tex Cameron Jr, MD 12/27/21 1310 Signed By: 12/27/21 131 Normal [facility] FRESH FROZ PLASMAon 11-24-[address] [facility] Comment on above: Performed By: #### F ####[facility] [address] [place], [place] [address] Re[address] head/brain wo conon 11-17 CT head/brain wo con [facility] Main [place] [address] [place] [address] [address] [address] Scan Report Signed Patient: Andrew Barros MR#: [id number] : 1945 Acct:[id number] Age/Sex: 76 / F ADM Date: 11/17/21 Loc: CT Room: Type: [facility] Attending Dr: Brayden Hernandez MD Ordering [...] Henny Mckeon M.D.11/17/2021 1:35 PM Dictation Location: [place] [address] Transcribed By: SOLOMON 11/17/21 133 Dictated By: Henny Mckeon MD 11/17/21 1330 Signed By: 11/17/[address] [facility] Basic Metabolic Panelon 10-24 Calcium [Mass/Vol] 8.9 mg/dL Normal 8.2-10.2 [facility] Comment on above: Performed By: #### P T #### [facility] [address] [place] [id number] [facility] Chloride [Moles/Vol] 94 mmol/L Low 95-114 [facility] Comment on above: Performed By: #### P T #### [facility] [address] CO2 [Moles/Vol] 22.6 mmol/L Normal 22.0-30.0 [facility] Comment on above: Performed By: #### P T #### [address] Creatinine [Mass/Vol] 1.38 mg/dL High 0.44-1.03 [facility] Comment on above: Performed By: #### P T #### [address] Creatinine Clr Calc Pharmacy 29.[address] [facility] Comment on above: Result Comment: PERF ORMED BY: [place] [address] PATHOLOGIST FIELD SERVICE ANALYST ADRIAN ROBERTSON M.D. Performed By: #### P T #### [address] Estimated GFR ( [place] [address] [facility] Comment on above: Result Comment: GFR estimated reference range: According to KDOQI guidelines, <60 ml/min/1.73m2 is sufficient to diagnose a patient with chronic kidney disease. Performed By: #### P T #### [place] [id number] [place] Estimated GFR (Non- Am [address] [facility] Comment on above: Performed By: #### P T #### [place] [address] [place] Glucose [Mass/Vol] 297 mg/dL High 70-100 [facility] Comment on above: Result Comment: [place] om Glucose Reference Range is dependent on time and content of last meal. Glucose of more than 200 mg/dL in a nonstressed, ambulatory subject supports the diagnosis of Diabetes Mellitus. ADA recommended reference range Performed By: #### P T #### [facility] [address] [place] [id number] [place] Potassium [Moles/Vol] 3.7 mmol/L Normal 3.5-5.1 [facility] Comment on above: Performed By: #### P T #### [facility] [address] [place] [address] [place] Sodium [Moles/Vol] 132 mmol/L Low 136-146 [facility] Comment on above: Performed By: #### P T #### [facility] [address] [place] [address] [place] Urea nitrogen [Mass/Vol] 19 mg/dL Normal 9-23 [facility] Comment on above: Performed By: #### P T #### [facility] [address] [place] [id number] [place] Creatinine and Glomerular fi ltration rate.predicted panel (S/P/Bld)Ordered By: Shaka Echavarria on 11-11-2021 Creatinine [Mass/Vol] 1.38 mg/dL 0.44-1.03 [facility] Estimated glomerular filtrat ion rate (GFR) non- AmericanOrdered By: Shaka Echavarria on 11-11-2021 GFR/1.73 sq M.predicted among non-blacks MDRD (S/P/Bld) [Vol rate/Area] 37 mL/Min [facility] Glucose Glucometer (BldC) [M ass/Vol]Ordered By: Shaka Echavarria on 11-11-2021 Glucose [Mass/Vol] 233 mg/dL [facility] Comment on above: Random Glucose Refer ence Range is dependent on time and content of last meal. Glucose of more than 200 mg/dL in a nonstressed, ambulatory subject supports the diagnosis of Diabetes Mellitus. Glucose Poct Glucometerson 0 11-11-2021 Commemt1 Glu2: Cleaned Meter Normal [facility] Comment on above: Result Comment: PERF ORMED BY: [place] [address] PATHOLOGIST FIELD SERVICE ANALYST ADRIAN ROBERTSON M.D. Performed By: #### P T #### [facility] [address] [place] [address] Glucose [Mass/Vol] 233 mg/dL Normal [facility] Comment on above: Result Comment: [place] om Glucose Reference Range is dependent on time and content of last meal. Glucose of more than 200 mg/dL in a nonstressed, ambulatory subject supports the diagnosis of Diabetes Mellitus. Performed By: #### P T #### [facility] [address] [place] [address] Commemt1 Glu2: Cleaned Meter [facility] Comment on above: Result Comment: PERF ORMED BY: [place] [address] PATHOLOGIST FIELD SERVICE ANALYST ADRIAN ROBERTSON M.D. Performed By: #### P T #### [address] Glucose [Mass/Vol] 127 mg/dL Normal [facility] Comment on above: Result Comment: [place] om Glucose Reference Range is dependent on time and content of last meal. Glucose of more than 200 mg/dL in a nonstressed, ambulatory subject supports the diagnosis of Diabetes Mellitus. Performed By: #### P T #### [facility] [address] [place] [address] No Panel InformationOrdered By: Shaka Echavarria on 11-11-2021 Bedside Glucose Comment Glu2: cleaned meter [facility] Estimated GFR () 45 mL/Min [facility] Comment on above: GFR estimated refere nce range: According to KDOQI guidelines, <60 ml/min/1.73m2 is sufficient to diagnose a patient with chronic kidney disease. Pharmacy Creatinine Clearance (Chem 29.48 [facility] Serum or plasma calcium missy urement (mass/volume)Ordered By: Shaka Echavarria on 11-11-2021 Calcium [Mass/Vol] 8.9 mg/dL 8.2-10.2 [facility] Serum or plasma chloride ken surement (moles/volume)Ordered By: Shaka Echavarria on 11-11-2021 Chloride [Moles/Vol] 94 mmol/L 95-114 [facility] Serum or plasma glucose missy urement (mass/volume)Ordered By: Shaka Echavarria on 11-11-2021 Glucose [Mass/Vol] 297 mg/dL 70-100 [facility] Comment on above: Delta: 179 on -0432ADA recommended reference rangeRandom Glucose Reference Range is dependent on time and content of last meal. Glucose of more than 200 mg/dL in a nonstressed, ambulatory subject supports the diagnosis of Diabetes Mellitus. Serum or plasma potassium me asurement (moles/volume)Ordered By: Shaka Echavarria on 11-11-2021 Potassium [Moles/Vol] 3.7 mmol/L 3.5-5.1 [facility] Serum or plasma sodium measu rement (moles/volume)Ordered By: Shaka Echavarria on 11-11-2021 Sodium [Moles/Vol] 132 mmol/L 136-146 [facility] Serum or plasma total carbon dioxide measurement (moles/volume)Ordered By: Shaka Echavarria on 11-11-2021 CO2 [Moles/Vol] 22.6 mmol/L 22.0-30.0 [facility] Serum or plasma urea nitroge n measurement (mass/volume)Ordered By: Shaka Echavarria on 11-11-2021 Urea nitrogen [Mass/Vol] 19 mg/dL 9-23 [facility] Basic Metabolic Panelon 10-24 Calcium [Mass/Vol] 8.9 mg/dL Normal 8.2-10.2 [facility] Comment on above: Performed By: #### B MP, PT, CBC #### [facility] [address] Chloride [Moles/Vol] 96 mmol/L Normal 95-114 [facility] Comment on above: Performed By: #### B MP, PT, CBC #### [facility] [address] CO2 [Moles/Vol] 29.6 mmol/L Normal 22.0-30.0 [facility] Comment on above: Performed By: #### B MP, PT, CBC #### [address] Creatinine [Mass/Vol] 0.89 mg/dL Normal 0.44-1.03 [facility] Comment on above: Performed By: #### B MP, PT, CBC #### [address] Creatinine Clr Calc Pharmacy 45.[address] [facility] Comment on above: Result Comment: PERF ORMED BY: [place] [address] PATHOLOGIST FIELD SERVICE ANALYST ADRIAN ROBERTSON M.D. Performed By: #### B MP, PT, CBC #### [address] Estimated GFR ( Rafaela > [address] [facility] Comment on above: Result Comment: GFR estimated reference range: According to KDOQI guidelines, <60 ml/min/1.73m2 is sufficient to diagnose a patient with chronic kidney disease. Performed By: #### B MP, PT, CBC #### [address] Estimated GFR (Non- Am > [address] [facility] Comment on above: Performed By: #### B MP, PT, CBC #### [address] Glucose [Mass/Vol] 179 mg/dL High 70-100 [facility] Comment on above: Result Comment: [place] om Glucose Reference Range is dependent on time and content of last meal. Glucose of more than 200 mg/dL in a nonstressed, ambulatory subject supports the diagnosis of Diabetes Mellitus. ADA recommended reference range Performed By: #### B MP, PT, CBC #### [address] Potassium [Moles/Vol] 3.1 mmol/L Low 3.5-5.1 [facility] Comment on above: Performed By: #### B MP, PT, CBC #### [facility] [address] [place] [address] [place] Sodium [Moles/Vol] 137 mmol/L Normal 136-146 [facility] Comment on above: Performed By: #### B MP, PT, CBC #### [facility] [address] Urea nitrogen [Mass/Vol] 10 mg/dL Normal 9-23 [facility] Comment on above: Performed By: #### B MP, PT, CBC #### [facility] [address] [place] [address] [place] Basophils Auto (Bld) [#/Vol] Ordered By: Salma Cortes on 11-10-2021 Basophils (Bld) [#/Vol] 0.0 10*3/uL 0.0-0.2 [facility] Basophils/100 WBC Auto (Bld) Ordered By: Salma Cortes on 11-10-2021 Basophils/100 WBC (Bld) 0.2 % [facility] Blood hemoglobin measurement (mass/volume)Ordered By: Salma Cortes on 11-10-2021 Hemoglobin (Bld) [Mass/Vol] 13.2 g/dL 11.8-15.4 [facility] Blood leukocytes automated c ount (number/volume)Ordered By: Salma Cortes on 11-10-2021 WBC (Bld) [#/Vol] 10.7 10*3/uL 4.5-11.0 [facility] CT head/brain wo conon 11-10 CT head/brain wo con [facility] Main [place] [address] [place] [address] CT Scan Report Signed Patient: Andrew Barros MR#: [id number] : 1945 Acct:[id number] Age/Sex: 76 / F ADM Date: 11/09/21 Loc: Room: [address] [place] [address] Type: ADM IN Attending Dr: Shaka Echavarria [...] Trina Watts M.D.11/10/2021 8:43 AM Dictation Location: [place] [address] Transcribed By: [facility] 11/10/21842 Dictated By: Trina Watts II, MD 11/10/2140 Signed By: 11/10/[address] [facility] Complete Blood Count Auto Di ffon 11-10-2021 Basophils (Bld) [#/Vol] 0.0 10*3/uL Normal 0.0-0.2 [facility] Comment on above: Result Comment: PERF ORMED BY: [place] [address] PATHOLOGIST FIELD SERVICE ANALYST ADRIAN ROBERTSON M.D. Performed By: #### B MP, PT, CBC #### [facility] [address] [place] [address] [place] Basophils/100 WBC (Bld) 0.2 % Normal . [facility] Comment on above: Performed By: #### B MP, PT, CBC #### [facility] [address] [place] [address] [place] Eosinophils (Bld) [#/Vol] 0.0 10*3/uL Normal 0.0-0.45 [facility] Comment on above: Performed By: #### B MP, PT, CBC #### [facility] [address] [place] [address] [place] Eosinophils/100 WBC (Bld) 0.1 % Normal . [facility] Comment on above: Performed By: #### B MP, PT, CBC #### [facility] [address] [place] [address] [place] Erythrocyte distribution width (RBC) [Ratio] 13.8 % Normal 11.9-15.3 [facility] Comment on above: Performed By: #### B MP, PT, CBC #### [facility] [address] [place] [address] [place] Hematocrit (Bld) [Volume fraction] 39.1 % Normal 34.0-46.4 [facility] Comment on above: Performed By: #### B MP, PT, CBC #### [facility] [address] [place] [address] [place] Hemoglobin (Bld) [Mass/Vol] 13.2 g/dL Normal 11.8-15.4 [facility] Comment on above: Performed By: #### B MP, PT, CBC #### [facility] [address] [place], [place] [address] [place] Lymphocytes (Bld) [#/Vol] 1.3 10*3/uL Normal 1.00-4.8 [facility] Comment on above: Performed By: #### B MP, PT, CBC #### [facility] [address] [place] [address] [place] Lymphocytes/100 WBC (Bld) 12.0 % Normal . [facility] Comment on above: Performed By: #### B MP, PT, CBC #### [facility] [address] MCH (RBC) [Entitic mass] 30.4 pg Normal 24.7-34.3 [facility] Comment on above: Performed By: #### B MP, PT, CBC #### [facility] [address] MCV (RBC) [Entitic vol] 90.0 fL Normal 80-100 [facility] Comment on above: Performed By: #### B MP, PT, CBC #### [facility] [address] Mean Corpuscular HGB Conc 33.8 g/dL Normal 32.0-35.0 [facility] Comment on above: Performed By: #### B MP, PT, CBC #### [facility] [address] [place] [address] [place] Monocytes (Bld) [#/Vol] 1.2 10*3/uL High 0.0-0.8 [facility] Comment on above: Performed By: #### B MP, PT, CBC #### [facility] [address] [place] [address] [place] Monocytes/100 WBC (Bld) 10.8 % Normal . [facility] Comment on above: Performed By: #### B MP, PT, CBC #### [facility] [address] [place] [address] [place] Neutrophils (Bld) [#/Vol] 8.2 10*3/uL High 1.8-7.7 [facility] Comment on above: Performed By: #### B MP, PT, CBC #### [facility] [address] [place] [address] [place] Neutrophils/100 WBC (Bld) 76.9 % Normal . [facility] Comment on above: Performed By: #### B MP, PT, CBC #### [facility] [address] Nucleated RBC/100 WBC (Bld) [Ratio] 0.1 % Normal 0-0.5 [facility] Comment on above: Performed By: #### B MP, PT, CBC #### [facility] [address] Platelet mean volume (Bld) [Entitic vol] 9.2 fL Normal 6.3-10.7 [facility] Comment on above: Performed By: #### B MP, PT, CBC #### [address] Platelets (Bld) [#/Vol] 261 10*3/uL Normal 150-450 [facility] Comment on above: Performed By: #### B MP, PT, CBC #### [address] RBC (Bld) [#/Vol] 4.35 10*6/uL Normal 3.60-5.00 [facility] Comment on above: Performed By: #### B MP, PT, CBC #### [address] WBC (Bld) [#/Vol] 10.7 10*3/uL Normal 4.5-11.0 [facility] Comment on above: Performed By: #### B MP, PT, CBC #### [address] Eosinophils Auto (Bld) [#/Vo l]Ordered By: Salma Cortes on 11-10-2021 Eosinophils (Bld) [#/Vol] 0.0 10*3/uL 0.0-0.45 [facility] Eosinophils/100 WBC Auto (Bl d)Ordered By: Salma Cortes on 11-10-2021 Eosinophils/100 WBC (Bld) 0.1 % [facility] Erythrocyte distribution wid th Auto (RBC) [Ratio]Ordered By: Salma Cortes on 11-10-2021 Erythrocyte distribution width (RBC) [Ratio] 13.8 % 11.9-15.3 [facility] Glucose Poct Glucometerson 0 11-10-2021 Glucose [Mass/Vol] 183 mg/dL Normal [facility] Comment on above: Result Comment: [facility] Glucose Reference Range is dependent on time and content of last meal. Glucose of more than 200 mg/dL in a nonstressed, ambulatory subject supports the diagnosis of Diabetes Mellitus. PERFORMED BY: [address] [place] [address] PATHOLOGIST FIELD SERVICE ANALYST ADRIAN ROBERTSON M.D. Performed By: #### G LULS #### Point of Care testing , Glucose [Mass/Vol] 135 mg/dL Normal [facility] Comment on above: Result Comment: [facility] Glucose Reference Range is dependent on time and content of last meal. Glucose of more than 200 mg/dL in a nonstressed, ambulatory subject supports the diagnosis of Diabetes Mellitus. PERFORMED BY: [address] [place] [address] PATHOLOGIST FIELD SERVICE ANALYST ADRIAN ROBERTSON M.D. Performed By: #### G LULS #### Point of Care testing , Glucose [Mass/Vol] 235 mg/dL Normal [facility] Comment on above: Result Comment: [facility] Glucose Reference Range is dependent on time and content of last meal. Glucose of more than 200 mg/dL in a nonstressed, ambulatory subject supports the diagnosis of Diabetes Mellitus. PERFORMED BY: [address] [place] [address] PATHOLOGIST FIELD SERVICE ANALYST ADRIAN ROBERTSON M.D. Performed By: #### G LULS #### Point of Care testing , Glucose [Mass/Vol] 110 mg/dL Normal [facility] Comment on above: Result Comment: [facility] Glucose Reference Range is dependent on time and content of last meal. Glucose of more than 200 mg/dL in a nonstressed, ambulatory subject supports the diagnosis of Diabetes Mellitus. PERFORMED BY: [address] [address] PATHOLOGIST FIELD SERVICE ANALYST ADRIAN ROBERTSON M.D. Performed By: #### G KIMBERLY #### Point of Care testing , Hematocrit Auto (Bld) [Volum e fraction]Ordered By: Salma Cortes on 11-10-2021 Hematocrit (Bld) [Volume fraction] 39.1 % 34.0-46.4 [facility] Laboratory - CoagulationOrde red By: Salma Cortes on 11-10-2021 PT Coag (PPP) [Time] 12.6 s 9.0-12.9 [facility] Laboratory - Hematology and Cell countsOrdered By: Salma Cortes on 11-10-2021 Nucleated RBC/100 WBC (Bld) [Ratio] 0.1 % 0-0.5 [facility] Lymphocytes Auto (Bld) [#/Vo l]Ordered By: Salma Cortes on 11-10-2021 Lymphocytes (Bld) [#/Vol] 1.3 10*3/uL 1.00-4.8 [facility] Lymphocytes/100 WBC Auto (Bl d)Ordered By: Salma Cortes on 11-10-2021 Lymphocytes/100 WBC (Bld) 12.0 % [facility] MCH Auto (RBC) [Entitic mass ]Ordered By: Salma Cortes on 11-10-2021 MCH (RBC) [Entitic mass] 30.4 pg 24.7-34.3 [facility] MCHC Auto (RBC) [Mass/Vol]Or dered By: Salma Cortes on 11-10-2021 MCHC (RBC) [Mass/Vol] 33.8 g/dL 32.0-35.0 [facility] MCV Auto (RBC) [Entitic vol] Ordered By: Salma Cortes on 11-10-2021 MCV (RBC) [Entitic vol] 90.0 fL 80-100 [facility] Monocytes Auto (Bld) [#/Vol] Ordered By: Salma Cortes on 11-10-2021 Monocytes (Bld) [#/Vol] 1.2 10*3/uL 0.0-0.8 [facility] Monocytes/100 WBC Auto (Bld) Ordered By: Salma Cortes on 11-10-2021 Monocytes/100 WBC (Bld) 10.8 % [facility] Neutrophils Auto (Bld) [#/Vo l]Ordered By: Salma Cortes on 11-10-2021 Neutrophils (Bld) [#/Vol] 8.2 10*3/uL 1.8-7.7 [facility] Neutrophils/100 WBC Auto (Bl d)Ordered By: Salma Cortes on 11-10-2021 Neutrophils/100 WBC (Bld) 76.9 % [facility] Platelet mean volume Auto (B ld) [Entitic vol]Ordered By: Salma Cortes on 11-10-2021 Platelet mean volume (Bld) [Entitic vol] 9.2 fL 6.3-10.7 [facility] Platelet poor plasma interna tional normalized ratio (INR) by coagulation assay (relatOrdered By: Salma Cortes on 11-10-2021 INR Coag (PPP) [Relative time] 1.1 {INR} [facility] Comment on above: INR Therapeutic Rang e [...] 11-10-2021 Platelets (Bld) [#/Vol] 261 10*3/uL 150-450 [facility] Prothrombin Time INRon 11-10 INR Coag (PPP) [Relative time] 1.1 {INR} Normal [facility] Comment on above: Result Comment: INR Therapeutic [...] heart valves: 3 - 4.5 PERFORMED BY: [place] [address] PATHOLOGIST FIELD SERVICE ANALYST ADRIAN ROBERTSON M.D. Performed By: #### B MP, PT, CBC #### [facility] [address] [place] [address] [facility] PT Coag (PPP) [Time] 12.6 s Normal 9.0-12.9 [facility] Comment on above: Performed By: #### B MP, PT, CBC #### [facility] [address] [place] [address] [facility] INR Coag (PPP) [Relative time] 1.2 {INR} Normal [facility] Comment on above: Order Comment: that no [...] heart valves: 3 - 4.5 PERFORMED BY: [place] [address] PATHOLOGIST FIELD SERVICE ANALYST ADRIAN ROBERTSON M.D. Performed By: #### P T #### [facility] [address] [place] [address] [facility] PT Coag (PPP) [Time] 12.9 s Normal 9.0-12.9 [facility] Comment on above: Order Comment: that no one else will be tiring until 3rd comes in. psw 2013 Performed By: #### P T #### [facility] [address] [place] [address] [place] RBC Auto (Bld) [#/Vol]Ordere d By: Salma Cortes on 11-10-2021 RBC (Bld) [#/Vol] 4.35 10*6/uL 3.60-5.00 [facility] BNPon 11-09-2021 Natriuretic peptide B (Bld) [Mass/Vol] 914.0 pg/mL Normal <=1,800.0 [facility] Comment on above: Performed By: #### C MADM, CMP, BNP ####[facility] [address] [place] [address]Dr. Swathi Reis CARDIAC TRINA ADMITon 022 CK [Catalytic activity/Vol] 50 U/L Normal 30-135 [facility] Comment on above: Performed By: #### C MADM, CMP, BNP ####[facility] [address] [place] [address]Dr. Swathi Reis CK.MB [Mass/Vol] 1.14 ng/mL Normal <=2.37 [facility] Comment on above: Performed By: #### C MADM, CMP, BNP ####[facility] [address] [place] [address]Dr. Swathi Reis HSTROP 12.8 pg/mL Normal 4.0-35.5 [facility] Comment on above: Result Comment: CUT- OFF POINTS HAVE BEEN ESTABLISHED BASED ON THE FOURTH UNIVERSAL DEFINITIONS OF MYOCARDIALINFARCTION. THE UPPER REFERENCE LIMIT (URL) OF TROPONIN, DEFINED THE 99TH PERCENTILE OFcTnI DISTRIBUTION IN A REFERENCE POPULATION, HAS BEEN CONFIRMED THE DECISION THRESHOLDFOR [place] DIAGNOSIS. Performed By: #### C MADM, CMP, BNP ####[facility] [address] [place] [address]Dr. Swathi Reis GUANACO 53.0 ng/mL Normal <=61.5 [facility] Comment on above: Performed By: #### C MADM, CMP, BNP ####[facility] [address] [place] [address]Dr. Swathi Chato CBC AUTO DIFFon 11-09-2021 BASO # 0.0 103/ul Normal 0.0-0.1 [facility] Comment on above: Performed By: #### C BC ####[facility] [address] [place] [address]Dr. Swathi Reis Basophils/100 WBC (Bld) 0.3 % Normal 0.2-2.0 [facility] Comment on above: Performed By: #### C BC ####[facility] [address] [place] [id number]. Swathi Reis EO # 0.0 103/ul Normal 0.0-0.7 [facility] Comment on above: Performed By: #### C BC ####[facility] [address] [place] [address]Dr. Swathi Reis Eosinophils/100 WBC (Bld) 0.2 % Critically low 0.9-7.0 [facility] Comment on above: Performed By: #### C BC ####[facility] [address] [place], [place] [address]Dr. Swathi Reis Erythrocyte distribution width (RBC) [Ratio] 13.1 % Normal 11.0-15.0 [facility] Comment on above: Performed By: #### C BC ####[facility] [address] [place], [place] [address]Dr. Swathi Reis Hematocrit (Bld) [Volume fraction] 40.8 % Normal 36.0-48.0 [facility] Comment on above: Performed By: #### C BC ####[facility] [address] [place], [place] [address]Dr. Swathi Reis Hemoglobin (Bld) [Mass/Vol] 13.3 g/dL Normal 12.0-16.0 [facility] Comment on above: Performed By: #### C BC ####[facility] [address] [place], [place] [address]Dr. Swathi Reis IG # 0.05 10e3/ul Critically high 0.00-0.03 [facility] Comment on above: Performed By: #### C BC ####[facility] [address] [place], [place] [address]Dr. Swathi Reis IG % 0.4 % Normal 0.0-0.5 [facility] Comment on above: Performed By: #### C BC ####[facility] [address] [place], [place] [address]Dr. Swathi Reis LYMPH # 1.0 103/ul Critically low 1.2-3.8 [facility] Comment on above: Performed By: #### C BC ####[facility] [address] [place] [id number]. Swathi Chato Lymphocytes/100 WBC (Bld) 8.3 % Critically low 20.5-60.0 [facility] Comment on above: Performed By: #### C BC ####[facility] [address] [place] [id number]. Swathi Reis MANUAL DIFF REQ NO Normal [facility] Comment on above: Performed By: #### C BC ####[facility] [address] [place] [id number]. Inessatracy Reis MCH (RBC) [Entitic mass] 29.8 pg Normal 26.7-34.0 [facility] Comment on above: Performed By: #### C BC ####[facility] [address] [place], [place] [address]Dr. Swathi Reis MCHC (RBC) [Mass/Vol] 32.6 g/dL Normal 29.9-35.2 [facility] Comment on above: Performed By: #### C BC ####[facility] [address] [place] [id number]. Swathi Reis MCV (RBC) [Entitic vol] 91.5 fL Normal 81.0-99.0 [facility] Comment on above: Performed By: #### C BC ####[facility] [address] [place], [place] [address]Dr. Swathi Reis MONO # 0.6 103/ul Normal 0.3-0.8 [facility] Comment on above: Performed By: #### C BC ####[facility] [address] [place], [place] [address]Dr. Swathi Reis Monocytes/100 WBC (Bld) 4.9 % Normal 1.7-12.0 [facility] Comment on above: Performed By: #### C BC ####[facility] [address] [place], [place] [address]Dr. Swathi Reis NEUT # 10.5 103/ul Critically high 1.4-6.5 [facility] Comment on above: Performed By: #### C BC ####[facility] [address] [place], [place] [address]Nu. Swathi Resi Neutrophils/100 WBC (Bld) 85.9 % Critically high 43.0-75.0 [facility] Comment on above: Performed By: #### C BC ####[facility] [address] [place], [place] [address]Hs. Swathi Reis Platelet mean volume (Bld) [Entitic vol] 10.9 fL Normal 9.5-13.5 [facility] Comment on above: Performed By: #### C BC ####[facility] [address] [place] [id number]. Swathi Reis PLT 290 103/ul Normal 150-450 [facility] Comment on above: Performed By: #### C BC ####[facility] [address] [place] [id number]. Swathi Reis RBC 4.46 106/ul Normal 4.20-5.40 [facility] Comment on above: Performed By: #### C BC ####[facility] [address] [place], [place] [address]Up. Swathi Reis WBC 12.3 103/ul Critically high 4.0-11.0 [facility] Comment on above: Performed By: #### C BC ####[facility] [address] [place], [place] [address]s. [address] CT HEAD WO CONon 11-09-2021 CT HEAD WO CON Normal [facility] Covid-19 PCR ([facility]on 10-24 SARS-CoV-2 (COVID-19) RNA ÓSCAR+probe Ql (Unsp spec) Not detected Normal NOT DETECTED [facility] Comment on above: Result Comment: When diagnostic [...] for this test is supported by the [place] of Health and Human Service's declaration that [...] longer be used). Performed By: #### [facility] ####[facility] [address] [place], [place] [address]Dr. Swathi Reis ER URINE PROFILEon 2 Bilirubin Ql (U) Negative Normal NEGATIVE [facility] Comment on above: Performed By: #### REYNOLD SOSA ####[facility] [address] [place], [place] [address]Dr. Swathi Ries Clarity (U) CLEAR Normal CLEAR [facility] Comment on above: Performed By: #### REYNOLD SOSA ####[facility] [address] [place], [place] [address]Dr. Swathi Reis Color (U) LT. YELLOW Normal YELLOW [facility] Comment on above: Performed By: #### REYNOLD SOSA ####[facility] [address] [place], [place] [address]Dr. Swathi Reis ERUAHD A micrscopic examina tion will be performed if indicated. Normal [facility] Comment on above: Performed By: #### REYNOLD SOSA ####[facility] [address] [place], [place] [address]Dr. Swathi Reis Glucose Ql (U) Negative Normal NEGATIVE [facility] Comment on above: Performed By: #### ROMEO SOSARO ####[facility] [address] [place], [place] [address]Dr. Swathi Reis Hemoglobin Ql (U) TRACE-INTACT Abnormal NEGATIVE [facility] Comment on above: Performed By: #### REYNOLD SOSA ####[facility] [address] [place] [address]Dr. Swathi Reis Ketones Ql (U) Negative Normal NEGATIVE [facility] Comment on above: Performed By: #### REYNOLD SOSA ####[facility] [address]hesx[address] [place] [address]Dr. Swathi Reis LEUKOCYTES Negative Normal NEGATIVE [facility] Comment on above: Performed By: #### REYNOLD SOSA ####[facility] [address] [place], [place] [address]Dr. Swathi Reis Nitrite Ql (U) Negative Normal NEGATIVE [facility] Comment on above: Performed By: #### REYNOLD SOSA ####[facility] U[address] [place], [place] [address]Dr. Swathi Reis pH (U) 6.0 [pH] Normal 5-9 [facility] Comment on above: Performed By: #### REYNOLD SOSA ####[facility] [address] [place], [place] [address]Dr. Swathi Reis SPEC GRAVITY 1.010 Normal 1.005-<=1.0 25 [facility] Comment on above: Performed By: #### REYNOLD SOSA ####[facility] [address] [place], [place] [address]Dr. Swathi Reis UA PROTEIN TRACE Normal NEGATIVE/ TRACE [facility] Comment on above: Performed By: #### REYNOLD SOSA ####[facility] [address] [place], [place] [address]Dr. Swathi Reis UR MICRO IND INDICATED Normal [facility] Comment on above: Performed By: #### REYNOLD SOSA ####[facility] [address] [place], [place] [address]Dr. Swathi Reis Urobilinogen Qn (U) 0.2 {Sánchez'U}/dL Normal 0.2 - 1. 0 [facility] Comment on above: Performed By: #### REYNOLD SOSA ####[facility] [address] [place], [place] [address]Dr. Swathi Reis Glucose Poct Glucometerson 0 11-09-2021 Glucose [Mass/Vol] 178 mg/dL Normal [facility] Comment on above: Result Comment: [facility] Glucose Reference Range is dependent on time and content of last meal. Glucose of more than 200 mg/dL in a nonstressed, ambulatory subject supports the diagnosis of Diabetes Mellitus. PERFORMED BY: [facility] [place] [address] PATHOLOGIST FIELD SERVICE ANALYST ADRIAN ROBERTSON M.D. Performed By: #### G LULS #### Point of Care testing , PROF 14(COMP METB)on 022 Albumin [Mass/Vol] 3.5 g/dL Normal 3.5-5.0 [facility] Comment on above: Performed By: #### C ROSALINO, CMP, BNP ####[facility] [address] [place] [address]Dr. Swathi Reis Albumin/Globulin [Mass ratio] 1.0 {ratio} Normal [facility] Comment on above: Performed By: #### C MADM, CMP, BNP ####[facility] [address] [place] [address]Dr. Swathi Reis ALP [Catalytic activity/Vol] 93 U/L Normal 38-126 [facility] Comment on above: Performed By: #### C MADM, CMP, BNP ####[facility] [address] [place] [id number]. Swathi Reis ALT [Catalytic activity/Vol] 22 U/L Normal 9-52 [facility] Comment on above: Performed By: #### C MADM, CMP, BNP ####[facility] [address] [place] [address]Dr. Swathi Reis Anion gap [Moles/Vol] 15.4 mmol/L Normal [facility] Comment on above: Performed By: #### C MADM, CMP, BNP ####[facility] [address] [place] [address]Dr. Swathi Reis AST [Catalytic activity/Vol] 21 U/L Normal 14-36 [facility] Comment on above: Performed By: #### C MADM, CMP, BNP ####[facility] [address] [place] [address]Dr. Swathi Reis Bilirubin [Mass/Vol] 0.7 mg/dL Normal 0.2-1.3 [facility] Comment on above: Performed By: #### C MADM, CMP, BNP ####[facility] [address] [place] [address]Dr. Swathi Reis Calcium [Mass/Vol] 9.5 mg/dL Normal 8.4-10.2 [facility] Comment on above: Performed By: #### C MADM, CMP, BNP ####[facility] [address] [place] [address]Dr. Swathi Reis Chloride [Moles/Vol] 99 mmol/L Normal 98-107 [facility] Comment on above: Performed By: #### C MADM, CMP, BNP ####[facility] [address] [place], [place] [address]Dr. Swathi Reis CO2 [Moles/Vol] 31.0 mmol/L Critically high 22.0-30.0 [facility] Comment on above: Performed By: #### C MADM, CMP, BNP ####[facility] [address] [place], [place] [address]Dr. Swathi Reis Creatinine [Mass/Vol] 1.10 mg/dL Critically high 0.52-1.04 [facility] Comment on above: Performed By: #### C MADM, CMP, BNP ####[facility] [address] [place], [place] [address]Dr. Swathi Reis EGFR-AF ANGOLAN 58 mL/min/1.73m2 Critically low >=60 [facility] Comment on above: Performed By: #### C MADM, CMP, BNP ####[facility] [address] [place], [place] [address]Dr. Swathi Reis EGFR-NON AF ANGOLAN 48 mL/min/1.73m2 Critically low >=60 [facility] Comment on above: Performed By: #### C MADM, CMP, BNP ####[facility] [address] [place] [address]Dr. Swathi Reis Globulin (S) [Mass/Vol] 3.5 g/dL Normal [facility] Comment on above: Performed By: #### C MADM, CMP, BNP ####[facility] [address] [place] [address]Dr. Swathi Reis Glucose [Mass/Vol] 203 mg/dL Critically high 74-106 [facility] Comment on above: Performed By: #### C MADM, CMP, BNP ####[facility] [address] [place] [address]Dr. Swathi Reis Potassium [Moles/Vol] 4.4 mmol/L Normal 3.4-5.0 [facility] Comment on above: Performed By: #### C MADM, CMP, BNP ####[facility] [address] [place] [address]Dr. Swathi Reis Protein [Mass/Vol] 7.0 g/dL Normal 6.1-8.2 [facility] Comment on above: Performed By: #### C MADM, CMP, BNP ####[facility] [address]wh[address] [place] [address]Dr. Swathi Reis Sodium [Moles/Vol] 141 mmol/L Normal 137-145 [facility] Comment on above: Performed By: #### C MADM, CMP, BNP ####[facility] [address] [place] [address]Dr. Swathi Reis Urea nitrogen [Mass/Vol] 21.0 mg/dL Critically high 7.0-17.0 [facility] Comment on above: Performed By: #### C MADM, CMP, BNP ####[facility] [address] [place] [address]Dr. Swathi Reis Urea nitrogen/Creatinine [Mass ratio] 19.1 mg/mg Normal [facility] Comment on above: Performed By: #### C MADM, CMP, BNP ####[facility] [address] [place] [address]Dr. Swathi Reis PROTIMEon 11-09-2021 INR Coag (PPP) [Relative time] 1.09 {INR} Normal [facility] Comment on above: Performed By: #### P T, PTT ####[facility] [address] [place], [place] [address]Dr. Swathi Reis INR GUIDELINES SEE BELOW Normal [facility] Comment on above: Result Comment: HARRIETT RED INR: 2.0 - 3.0 CONDITIONS NOT LISTED BELOW 2.5 - 3.5 FOR PROSTHETIC HEART VALVE REPLACEMENT 2.5 - 3.5 RECURRENT THROMBOSIS Performed By: #### P T, PTT ####[facility] [address] [place], [place] [address]Dr. Swathi Reis PT Coag (PPP) [Time] 11.7 s Critically high 9.0-11.6 [facility] Comment on above: Performed By: #### P T, PTT ####[facility] [address] [place], [place] [address]Dr. Swathi Reis INR Coag (PPP) [Relative time] 3.45 {INR} Normal [facility] Comment on above: Performed By: #### P TT, PT ####[facility] [address] [place] [id number]. Swathi Reis INR GUIDELINES SEE BELOW Normal [facility] Comment on above: Result Comment: HARRIETT RED INR: 2.0 - 3.0 CONDITIONS NOT LISTED BELOW 2.5 - 3.5 FOR PROSTHETIC HEART VALVE REPLACEMENT 2.5 - 3.5 RECURRENT THROMBOSIS Performed By: #### P TT, PT ####[facility] [address] [place], [place] [address]Dr. Swathi Reis PT Coag (PPP) [Time] 34.4 s Critically high 9.0-11.6 [facility] Comment on above: Performed By: #### P TT, PT ####[facility] [address] [place], [place] [address]Dr. Swathi Reis PTTon 11-09-2021 aPTT Coag (Bld) [Time] 25.9 s Normal 22.3-36.2 [facility] Comment on above: Performed By: #### P T, PTT ####[facility] [address] [place] [address]Dr. Inessatracy Reis aPTT Coag (Bld) [Time] 39.1 s Critically high 22.3-36.2 [facility] Comment on above: Performed By: #### P TT, PT ####[facility] [address] [place], [place] [address]Dr. Swathi Reis TYPE AND SCREENon 11-09-2021 TYPE AND SCREEN Negative Normal [facility] Comment on above: Performed By: #### T NS ####[facility] [address] [place], [place] [address]Dr. Swathi Reis URINE MICROSCOPIC ONLYon BACTERIA NONE SEEN Normal NONE SEEN [facility] Comment on above: Performed By: #### ROMEO SOSARO ####[facility] [address] [place], [place] [address]Dr. Swathi Reis Bacteria identified Cx Nom (U) NOT INDICATED Normal [facility] Comment on above: Performed By: #### ROMEO SOSARO ####[facility] [address] [place], [place] [address]Dr. Swathi Reis CAST NONE SEEN Normal NONE SEEN [facility] Comment on above: Performed By: #### ROMEO SOSARO ####[facility] [address] [place], [place] [address]Dr. Swathi Reis Crystals LM Nom (Urine sed) NONE SEEN Normal NONE SEEN [facility] Comment on above: Performed By: #### ROMEO SOSARO ####[facility] [address] [place], [place] [address]Dr. Swathi Reis Epithelial cells LM Ql (Urine sed) FEW Abnormal NONE SEEN /RARE [facility] Comment on above: Performed By: #### ROMEO SOSARO ####[facility] [address] [place], [place] [address]Dr. Inessalan Chato MUCOUS NONE SEEN Normal NONE SEEN [facility] Comment on above: Performed By: #### ROMEO SOSARO ####[facility] [address] [place], [place] [address]Dr. Swathi Reis RBC 2-5 Abnormal 0-2 [facility] Comment on above: Performed By: #### REYNOLD SOSA ####[facility] [address] [place], [place] [address]Ft. Swathi Reis WBC NONE SEEN Normal NONE SEEN [facility] Comment on above: Performed By: #### REYNOLD SOSA ####[facility] [address] [place], [place] [address]Kl. Swathi Reis XR CHEST 1 Von 11-09-2021 XR CHEST 1 V Normal [facility] Coding Summary.on 09-14-2020 Coding Summary. CODING DATE: 020 FINAL [facility] STATUS: Short-Term Hosp as IP PAYOR: Medicare [...] Revised Date Saved: 09/14/2020 08:26 am Normal [facility] EMS Documentationon 09-12-20 20 EMS Documentation [id number]:127 Normal [facility] ED Clinical Summaryon 2019 ED Clinical Summary (Inserted Image. Ave ble to display) [address] [address] ED Clinical Summary Person Information Name: ANDREW BARROS/New_Braydon Age: 74 Years : 1945 Sex: Female Language: Greenlandic PCP: Eduardo Sharpe MD Marital Status: Phone: [phone] Visit Id: Visit Reason: Shortness of breath; [...] 09/09/2020 23:10:35 09/09/2020 23:10:35 09/09/2020 23:10:35 ADDRESS: [address] [place] [address] PHYS DOC NOTES: Addendum by Koko Pettit DO on September 09, 2020 18:55:26 EST MEDICAL INFORMATION: Prescriptions Given: Medications to Continue with No Changes Other Medications insulin aspart (NovoLog) 8 Units Subcutaneous every day. nitroglycerin nitroglycerin (nitroglycerin 0.4 mg sublingual Tab) 1 Tablets Sublingual every 5 minutes as needed for chest pain. PATIENT EDUCATION INFORMATION: Instructions: Follow up: DIAGNOSIS: COVID-19; Hypoxemia; Pneumonia Normal [facility] ED Patient Education Noteon 09-10-2020 ED Patient Education Note Normal [facility] ED Patient Summaryon 020 ED Patient Summary (Inserted Image. Ave ble to display) [address] [address] Patient Discharge Instructions Person Information Name: ANDREW BARROS Age: 74 Years Arrival Date: 09/09/2020 12:32:39 Discharge Diagnosis: COVID-19; Hypoxemia; Pneumonia Primary Care Physician: Eduardo Sharpe MD Provider Information Primary Provider: Koko Pettit DO Advanced Patient Financial Counselor:None The exam and treatment you received in the Emergency Department were for an urgent problem and are not intended as complete care. It is important that you follow up with a doctor, nurse practitioner, or physician?s mortgage loan assistant for ongoing care. If your symptoms [...] opioids can be used to help relieve maymbhug-no-joenki pain and are often prescribed following a [...] be struggling with addiction, tell your health care connector and ask for guidance or call [facility] National Helpline at 8-829-378-NRVW. o Source: [place] Department of Health and Human Services/Center for Disease Control & Prevention [facility] Medications Given: Medication Dose Route levo (more content not included)... Normal [facility] Progress Note-Nurseinna 2019 Progress Note-Nurse [facility] ems at bedside receiving report and preparing patient for transport to on license of [facility]. pt taken off high flow NC and placed on non rebreather at 15L/min o2 for traansport. Normal [facility] Troponin 9 Hr.on 09-10-2020 Troponin I.cardiac [Mass/Vol] 57.60 pg/mL Abnormal 10.10-27.10 [facility] Comment on above: Result Comment: Crit [...] Umair, April 2018) Performed By: #### 1 [id number] ####[facility] [address] [place] [address] .Manual Abson 09-09-2020 Basophils/Leukocytes Manual cnt (Bld) [Pure # fraction] 0.0 E9/L Normal 0.0-0.2 [facility] Comment on above: Performed By: #### 1 9805098, 2426110, 0771141, 3082002, 20935266, 38787288, 7053470, 61003181, 45809996 #### [facility] Laboratory [address] [place] [address] Eosinophils/Leukocyt es Manual cnt (Bld) [Pure # fraction] 0.0 E9/L Normal 0.0-0.5 [facility] Comment on above: Performed By: #### 1 9912159, 3064901, 4318348, 4479813, 48553912, 00212470, 4599067, 03376724, 98720665 #### [facility] [address] [place] [address] Lymphocytes/Leukocyt es Manual cnt (Bld) [Pure # fraction] 0.4 E9/L Low 1.0-4.0 [facility] Comment on above: Performed By: #### 1 3519993, 9092599, 3584267, 3626093, 84945709, 50871758, 3583657, 56389927, 61104678 #### [facility] [address] [place] [address] Monocytes/Leukocytes Manual cnt (Bld) [Pure # fraction] 1.5 E9/L High 0.2-1.0 [facility] Comment on above: Performed By: #### 1 1973944, 4944187, 4376656, 8135062, 54622808, 58248216, 2975305, 00448758, 10397988 #### [facility] [address] [place] [address] Neutrophils/Leukocyt es Auto (Bld) [Pure # fraction] 18.9 E9/L High 2.0-7.5 [facility] Comment on above: Performed By: #### 1 6628329, 6410830, 0587983, 3531860, 19992618, 16539486, 8064776, 54091862, 68799353 #### [facility] [address] [place] [address] BMPon 09-09-2020 Creatinine [Mass/Vol] 1.1 mg/dL Normal 0.5-1.3 [facility] Comment on above: Performed By: #### 1 4181362, 3525903, 2081352, 0413099, 54865932, 77262663, 0234260, 94090313, 92483257 #### [facility] [address] [place] [address] Urea nitrogen [Mass/Vol] 26 mg/dL High 5-21 [facility] Comment on above: Performed By: #### 1 8672961, 7610789, 9090221, 0694114, 29863174, 94986313, 5673156, 73369962, 04469154 #### [facility] [address] [place] [address] Urea nitrogen/Creatinine [Mass ratio] 24 No Units High 10-20 [facility] Comment on above: Performed By: #### 1 9988403, 8427504, 6028922, 8497138, 14070517, 19774983, 1022035, 02186635, 74349882 #### [facility] [address] [place] [address] Anion gap [Moles/Vol] 14 mmol/L Normal 6-16 [facility] Comment on above: Performed By: #### 1 9193362, 2639388, 3510404, 2405419, 74832697, 72741832, 2088889, 24019148, 67409455 #### [facility] [address] [place] [address] Calcium [Mass/Vol] 8.7 mg/dL Low 8.9-11.1 [facility] Comment on above: Performed By: #### 1 3114479, 4373357, 3144672, 4343023, 72391811, 12625816, 1932675, 58404493, 12427379 #### [facility] [address] [place] [address] Chloride [Moles/Vol] 104 mmol/L Normal 101-111 [facility] Comment on above: Performed By: #### 1 0691138, 7559871, 9042052, 9140689, 90888369, 11462169, 2931247, 98633492, 99770289 #### [facility] [address] [place] [address] CO2 [Moles/Vol] 23 mmol/L Normal 21-31 [facility] Comment on above: Performed By: #### 1 8916563, 7155115, 5427964, 0025773, 58045007, 06100423, 3366618, 09043074, 88180572 #### [facility] [address] [place] [address] Glucose [Mass/Vol] 256 mg/dL High 55-199 [facility] Comment on above: Result Comment: If t his glucose result represents a fasting glucose, interpretation should refer to the following reference range: 55-99 mg/dL Performed By: #### 1 5127490, 4688515, 8174007, 3504299, 24770963, 13590485, 1387498, 17157904, 50628953 #### [facility] [address] [place] [address] Potassium [Moles/Vol] 4.9 mmol/L Normal 3.5-5.3 [facility] Comment on above: Performed By: #### 1 8346915, 0961644, 1696216, 0117035, 68973417, 29420586, 8125357, 90465875, 38125761 #### [facility] [address] [place] [address] Sodium [Moles/Vol] 136 mmol/L Normal 135-145 [facility] Comment on above: Performed By: #### 1 7486342, 8002416, 0288323, 6909615, 40615566, 04856908, 2505734, 26468554, 46886983 #### [facility] [address] [place] [address] BNPon 09-09-2020 Int Ctr BNP Pass Normal [facility] Comment on above: Performed By: #### 1 9119523, 9440313, 4097979, 4282499, 02879631, 56356050, 3657419, 12502728, 23804864 ####[facility] [address] [place] [address] Natriuretic peptide B (Bld) [Mass/Vol] 477 pg/mL High 5-80 [facility] Comment on above: Performed By: #### 1 7537074, 1147341, 8323871, 4571094, 89609709, 55907390, 1509030, 61124415, 86666620 ####[facility] [address] [place] [address] Bld Gas Arton 09-09-2020 a/A Ratio Art 37.50 Normal >=0.80 [facility] Comment on above: Performed By: #### 1 7268971 ####[facility] [address] [place] [address] AaDO2 Art 144.6 High 5.0-15.0 [facility] Comment on above: Performed By: #### 1 3758429 ####[facility] [address] [place] [address] Allens Test Positive Invalid Interpretation Code [facility] Comment on above: Result Comment: [facility] Department of Pulmonary Medicine [address] [place] [address] Performed By: #### 1 4180332 ####[facility] [address] [place] [address] Base excess Calc (Bld) [Moles/Vol] -1.8000 mmol/L Low >=2.8 [facility] Comment on above: Performed By: #### 1 9194379 ####[facility] [address] [place] [address] Called By: MISHA Invalid Interpretation Code [facility] Comment on above: Performed By: #### 1 8890369 ####[facility] [address] [place] [address] Called To: COLTON Invalid Interpretation Code [facility] Comment on above: Performed By: #### 1 7867462 ####[facility] [address] [place] [address] cCa2+ Art 4.93 mg/dL Normal 4.40-5.30 [facility] Comment on above: Performed By: #### 1 0166200 ####[facility] [address] [place] [address] cCl- Art 106.0 mmol/L Normal 101.0-111.0 [facility] Comment on above: Performed By: #### 1 3314111 ####[facility] [address] [place] [address] cGlu Art 262.0 mg/dL High 55.0-199.0 [facility] Comment on above: Result Comment: 83 Performed By: #### 1 7808376 ####[facility] [address] [place] [address] cK+ Art 4.9 mmol/L Normal 3.5-5.3 [facility] Comment on above: Performed By: #### 1 1355748 ####[facility] [address] [place] [address] cLac Art 1 mmol/L Low 5-14 [facility] Comment on above: Performed By: #### 1 2470673 ####[facility] [address] [place] [address] motor pool clerk+ Art 140.0 mmol/L Normal 135.0-145.0 [facility] Comment on above: Performed By: #### 1 1170020 ####[address] [place] [address] CO2 (Bld) [Partial pressure] 45.5 mm[Hg] High 35.0-45.0 [facility] Comment on above: Result Comment: 83 Performed By: #### 1 6217696 ####[address] [place] [address] Device NASAL Invalid Interpretation Code [facility] Comment on above: Performed By: #### 1 6287458 ####[address] [address] Drawn by TSB Invalid Interpretation Code [facility] Comment on above: Performed By: #### 1 5980061 ####[address] [place] [address] Dt/Tm Notified 12:54:00 Invalid Interpretation Code [facility] Comment on above: Performed By: #### 1 5807190 ####[address] [place] [address] FCOHb Art 1.1 % Low 1.5-4.9 [facility] Comment on above: Result Comment: 84 Reference range Nonsmoker <1.5% Smoker <5.0% Heavy Smoker <9.0% Performed By: #### 1 4305562 ####[address] [place] [address] FIO2 BG 40.0 Invalid Interpretation Code [facility] Comment on above: Performed By: #### 1 0821786 ####[address] [place] [address] Flow 5.00 Invalid Interpretation Code [facility] Comment on above: Performed By: #### 1 1310593 ####[address] [place] [address] FMetHb Art 0.6 % Normal 0.0-1.9 [facility] Comment on above: Performed By: #### 1 3863674 ####[address] [place] [address] FO2Hb Art 94.9 % Normal 92.0-100.0 [facility] Comment on above: Performed By: #### 1 5801657 ####[address] [address] HCO3 (Bld) [Moles/Vol] 22.9 mmol/L Normal 22.0-26.0 [facility] Comment on above: Performed By: #### 1 3191929 ####[address] [address] Hemoglobin (Bld) [Mass/Vol] 9.9 g/dL Low 12.0-16.0 [facility] Comment on above: Result Comment: 84 Performed By: #### 1 4419986 ####[place] [address] Oxygen saturation in Blood 96.6 % Normal 95.0-100.0 [facility] Comment on above: Performed By: #### 1 0479689 ####[place] [address]157 P O2 Arterial 86.6 mmHg Normal 80.0-100.0 [facility] Comment on above: Performed By: #### 1 8514342 ####[address] [address] pH (Bld) 7.333 [pH] Low 7.350-7.450 [facility] Comment on above: Result Comment: 84 Performed By: #### 1 8925361 ####[address] [address] Sample Site RR Invalid Interpretation Code [facility] Comment on above: Performed By: #### 1 6906203 ####[address] [address] Sample Type Arterial Invalid Interpretation Code [facility] Comment on above: Performed By: #### 1 2780586 ####[address] [address] CBC w/ Auto Diffon 202 0 Erythrocyte distribution width (RBC) [Ratio] 15.1 % High 10.9-14.2 [facility] Comment on above: Performed By: #### 1 5527435, 5460478, 5252849, 8788895, 41804424, 75299729, 0992882, 68054739, 02086898 #### [facility] [address] [place] [address] Hematocrit (Bld) [Volume fraction] 30.7 % Low 34.0-46.0 [facility] Comment on above: Performed By: #### 1 8920941, 8176494, 3114566, 2961446, 05436480, 99444927, 4856177, 91900207, 59454858 #### [facility] [address] [place], [place] [address] Hemoglobin (Bld) [Mass/Vol] 9.9 g/dL Low 12.0-16.0 [facility] Comment on above: Performed By: #### 1 2308227, 5719806, 9124264, 2281565, 99000730, 69056626, 3388774, 36449226, 27934777 #### [facility] [address] [place] [address] MCH (RBC) [Entitic mass] 29.7 pg Normal 27.0-34.0 [facility] Comment on above: Performed By: #### 1 4746754, 8750530, 7824389, 4178301, 48424752, 85415473, 9006066, 55891813, 90853202 #### [facility] [address] [place] [address] MCHC (RBC) [Mass/Vol] 32.2 g/dL Normal 31.4-36.0 [facility] Comment on above: Performed By: #### 1 0389775, 1192952, 7938007, 7304203, 70097517, 73040910, 2681935, 76902153, 07746053 #### [facility] [address] [place] [address] MCV (RBC) [Entitic vol] 92.3 fL Normal 80.0-100.0 [facility] Comment on above: Performed By: #### 1 2616644, 9455306, 1432684, 8672300, 07505406, 96359853, 5515062, 56262427, 89622267 #### [facility] [address] [place] [address] Platelet mean volume (Bld) [Entitic vol] 8.4 fL Normal 6.4-10.8 [facility] Comment on above: Performed By: #### 1 7947134, 1194687, 9652742, 2499304, 68064249, 36893877, 1283893, 35957258, 67721435 #### [facility] [address] [place] [address] Platelets (Bld) [#/Vol] 243.0 E9/L Normal 150.0-500.0 [facility] Comment on above: Performed By: #### 1 2882403, 9891255, 6943534, 2722809, 04605308, 80723800, 9449289, 06944924, 32625507 #### [facility] [address] [place] [address] RBC (Bld) [#/Vol] 3.3 E12/L Low 4.3-5.9 [facility] Comment on above: Performed By: #### 1 6666241, 4280728, 5671503, 1142108, 15684485, 47098508, 1132354, 42432647, 84944656 #### [facility] [address] [place] [address] WBC corrected for nucl RBC Auto (Bld) [#/Vol] 21.7 E9/L High 4.0-11.0 [facility] Comment on above: Performed By: #### 1 6099379, 3760807, 6972668, 5355281, 27412106, 44586084, 1067222, 76885831, 53479158 #### [facility] [address] [place] [address] CTA Cheston 12-18-2020 CTA Chest Exam Date/Time: [...] 370 Contrast amount in ml's: 66 Normal [facility] Consent for Treatmenton 08-23 Consent for Treatment [id number]:127 Normal [facility] D-Dimeron 09-09-2020 Fibrin D-dimer FEU (PPP) [Mass/Vol] 1480 ng/mL Abnormal 215-500 [facility] Comment on above: Result Comment: Resu [...] infections Liver cirrhosis Performed By: #### 1 9510846, 0450269, 7563206, 2623104, 13285696, 25219192, 9008494, 47758941, 28841360 ####[facility] [address] [place] [address] ED Note-Physicianon 09-09-20 ED Note-Physician Basic Information Time Seen: Koko Pettit DO 09/09/2020 12:35 Chief Complaint Sent from [facility] for increased SOB and low oxygen level. Covid positive about 2 weeks ago per EMS History of Present Illness 74 female presents to the emergency department with shortness of breath. Patient presents by EMS from the residential with Covid positive testing about 2 weeks [...] does not normally wear oxygen at the residential. No other aggravating or relieving factors no other associated symptoms no other prior treatments or complaints. Family: Reviewed and noncontributory Social: lives at residential Review of systems negative unless otherwise specified [...] (09/09/20 13 (more content not included)... Normal [facility] Comment on above: Result Comment: Elec tronically Signed By: Koko Pettit DO\.br\Date and Time Signed: 09/09/20 18:56 EST Lactic Acidon 09-09-2020 Lactate [Mass/Vol] 1.0 mmol/L Normal 0.5-2.2 [facility] Comment on above: Performed By: #### 2 506739 ####[facility] [address] [place] [address] Manual Diffon 09-09-2020 Band form neutrophils/100 WBC (Bld) 6 % Normal 0-10 [facility] Comment on above: Order Comment: Order Added by Discern Expert. Performed By: #### 1 2322445, 8121697, 1443626, 2853422, 32754757, 38756782, 6370858, 13823910, 79841514 #### [facility] [address] [place] [address] Basophils/100 WBC (Bld) 0 % Normal 0-2 [facility] Comment on above: Order Comment: Order Added by Discern Expert. Performed By: #### 1 3887031, 3076072, 3197284, 9028076, 53155345, 35425422, 7202342, 48076306, 88423480 #### [facility] [address] [place] [address] Eosinophils/100 WBC (Bld) 0 % Normal 0-8 [facility] Comment on above: Order Comment: Order Added by Discern Expert. Performed By: #### 1 0545890, 7820616, 5347239, 0172730, 01750661, 22039757, 7883028, 60643326, 38996303 #### [facility] [address] [place] [address] Lymphocytes/100 WBC (Bld) 2 % Low 14-50 [facility] Comment on above: Order Comment: Order Added by Discern Expert. Performed By: #### 1 0673972, 3447628, 6495924, 3684385, 39307328, 91054963, 9643817, 59877282, 60316840 #### [facility] [address] [place] [address] Metamyelocytes/Leuko cytes Manual cnt (Bld) [Pure # fraction] 2 % High <=0 [facility] Comment on above: Order Comment: Order Added by Discern Expert. Performed By: #### 1 7367025, 4157402, 3927955, 3471957, 78409550, 71495129, 5809341, 45074303, 78688225 #### [facility] [address] [place] [address] Monocytes/100 WBC (Bld) 7 % Normal 4-14 [facility] Comment on above: Order Comment: Order Added by Discern Expert. Performed By: #### 1 1254520, 1885951, 8759964, 0491751, 39882033, 00367618, 5675362, 32903287, 94800261 #### [facility] [address] [place] [address] Morphology Elie (Bld) [Interp] Normal Normal [facility] Comment on above: Order Comment: Order Added by Discern Expert. Performed By: #### 1 0467454, 0317053, 5706803, 6744624, 89748427, 11045050, 2498539, 07853965, 00564481 #### [facility] [address] [place] [address] Myelocytes/100 WBC (Bld) 2 % High <=0 [facility] Comment on above: Order Comment: Order Added by Discern Expert. Performed By: #### 1 6411425, 4001529, 7996668, 0339693, 10910932, 81572558, 8935294, 20977045, 75359708 #### [facility] [address] [place] [address] Nucleated cells (Bld) [#/Vol] 1 High <=0 [facility] Comment on above: Order Comment: Order Added by Discern Expert. Performed By: #### 1 9842629, 7128035, 2522973, 9405029, 96251352, 70685980, 9295506, 75306164, 47903925 #### [facility] [address] [place] [address] Segmented neutrophils/100 WBC (Bld) 81 % High 36-75 [facility] Comment on above: Order Comment: Order Added by Discern Expert. Performed By: #### 1 [id number], [id number], [id number], [id number], [id number], [id number], [id number] #### [facility] [address] [place] [address] Variant lymphocytes LM Ql (Bld) 0 % Invalid Interpretation Code [facility] Comment on above: Order Comment: Order Added by Discern Expert. Performed By: #### 1 [id number], [id number], [id number], [id number], [id number], [id number], [id number] #### [facility] [address] [place] [address] PTon 09-09-2020 INR Coag (PPP) [Relative time] 1.9 {INR} Invalid Interpretation Code [facility] Comment on above: Result Comment: INR results are specifically intended to assess patients stabilized on long-term Anticoagulation therapy suggested INR?s ?Less Intensive Anticoagulation? 2.0 ? 3.0 Conventional Range 3.0 ? 4.5 Performed By: #### 2 [id number] ####[facility] [address] [place] [address] PT Coag (PPP) [Time] 22.8 second(s) High 10.2-12.9 [facility] Comment on above: Performed By: #### 2 [id number] ####[facility] [address] [place] [address] PT & PTTon 09-09-2020 aPTT Coag (PPP) [Time] 31.7 second(s) Normal 25.1-36.5 [facility] Comment on above: Result Comment: Hepa rin therapeutic range (represented by Anti-Factor Xa activity of 0.2 - 0.4 U/mL) corresponds to PTT of 56.6 - 109.0 sec. Performed By: #### 1 [id number], 4075355, [id number], [id number], [id number], 1943162, 68828030, [id number] ####[facility] [address] [place] [address] INR Coag (PPP) [Relative time] 2.0 {INR} Invalid Interpretation Code [facility] Comment on above: Result Comment: INR results are specifically intended to assess patients stabilized on long-term Anticoagulation therapy suggested INR?s ?Less Intensive Anticoagulation? 2.0 ? 3.0 Conventional Range 3.0 ? 4.5 Performed By: #### 1 [id number], [id number], [id number], 7167238, [id number], [id number], 6710948, [id number], [id number] ####[facility] [address] [place] [address] PT Coag (PPP) [Time] 23.6 second(s) High 10.2-12.9 [facility] Comment on above: Performed By: #### 1 [id number], [id number], 9882715, 2017800, 70173556, 05722215, 7085741, [id number], [id number] ####[facility] [address] [place] [address] PTTon 09-09-2020 aPTT Coag (PPP) [Time] 30.4 second(s) Normal 25.1-36.5 [facility] Comment on above: Result Comment: Hepa rin therapeutic range (represented by Anti-Factor Xa activity of 0.2 - 0.4 U/mL) corresponds to PTT of 56.6 - 109.0 sec. Performed By: #### 2 [id number] ####[facility] [address] [place] [address] Progress Note-Nurseon 2019 Progress Note-Nurse Pt care report provi ded to JARRET Hirsch. Pts family member, Rosenda updated on pt status. Presently awaiting transport to [facility], [place] [facility] [address] Normal [facility] Progress Note-Nurse Pt care report alan d to [facility] Zach, advised of family contact information and will send SNF paperwork with patient. Normal [facility] Progress Note-Nurse Pts daughter, Rosenda updated on pt transfer and condition. Rosenda: [phone] Pts family sts pt is under extreme stress, pts spouse yesterday due to COVID infection. Normal [facility] Progress Note-Nurse Pts son updated on p t condition, presently awating updated order set. Pt returns from CT, RT at bedside for high flow o2 placement. Normal [facility] Progress Note-Nurse IV ABx completed at this time, pt to CT Normal [facility] Progress Note-Nurse Pt c/o increased dys pnea, spo2 reading 89% oxygen increased to 6lpm, nasal cannula. made aware, requests RT for high flow oxygen therapy Normal [facility] Progress Note-Nurse Advised per CT that IV no longer infuses/flushes, await IV access at this time via US. Normal [facility] Progress Note-Nurse Pt to imaging at thi s time. Normal [facility] Troponin 0 Hr.on 09-09-2020 Troponin I.cardiac [Mass/Vol] 10.10 pg/mL Normal 10.10-27.10 [facility] Comment on above: Result Comment: The 95% CI (Confidence Interval) PPV (Positive Predictive Value) for myocardial infarction in females is 38 pg/mL, in males 51 pg/mL. The results should be used in conjunction with clinical conditions of myocardial infarction. (Access High Sensitivity Troponin I Instructions For Use, Uziel Umair, April 2018) Performed By: #### 1 [id number], [id number], 9827993, 89979269, [id number], 8385166, [id number], [id number] ####[facility] [address] [place] [address] Troponin 3 Hr.on 09-09-2020 Troponin I.cardiac [Mass/Vol] 20.20 pg/mL Normal 10.10-27.10 [facility] Comment on above: Result Comment: The 95% CI (Confidence Interval) PPV (Positive Predictive Value) for myocardial infarction in females is 38 pg/mL, in males 51 pg/mL. The results should be used in conjunction with clinical conditions of myocardial infarction. (Access High Sensitivity Troponin I Instructions For Use, [email or web address], April 2018) Performed By: #### 1 [id number] ####[facility] [address] [place] [address] Troponin 6 Hr.on 09-09-2020 Troponin I.cardiac [Mass/Vol] 37.60 pg/mL High 10.10-27.10 [facility] Comment on above: Result Comment: The 95% CI (Confidence Interval) PPV (Positive Predictive Value) for myocardial infarction in females is 38 pg/mL, in males 51 pg/mL. The results should be used in conjunction with clinical conditions of myocardial infarction. (Access High Sensitivity Troponin I Instructions For Use, [email or web address], April 2018) Performed By: #### 1 [id number] #### [facility] [address] [place] [id number] XR Chest Single Viewon 09-09 XR Chest [...] DO Transcribed by: MATTHEW Technologist: JAI Normal [facility] eGFRon 09-09-2020 GFR/1.73 sq M.predicted among blacks MDRD (S/P/Bld) [Vol rate/Area] 59 mL/min/1.73 m2 Normal >=59 [facility] Comment on above: Order Comment: Order added by Discern Expert. Result Comment: eGFR is race adjusted. AA=. Performed By: #### 1 [id number], [id number], 8992830, 7780121, 36557072, [id number], [id number], [id number], [id number] #### [facility] [address] [place] [address] GFR/1.73 sq M.predicted among non-blacks MDRD (S/P/Bld) [Vol rate/Area] 48 mL/min/1.73 m2 Low >=59 [facility] Comment on above: Order Comment: Order added by Discern Expert. Result Comment: Carpenter/Labor les kidney disease could be indicated at eGFR's of less than 60 mL/min/1.73m2. Kidney failure is indicated at less than 15 mL/min/1.73m2. Performed By: #### 1 [id number], [id number], 1582454, 5073596, 78821547, [id number], 2013464, [id number], [id number] #### [facility] [address] [place] [address] Vital Signs Date Time Vital Sign Value Performing Clinician Facility 05-20-2023 15:100400 Body height 162.6 cm Sandeep Lenz MD Work Phone: [facility] 05-20-2023 15:10-0400 Body temperature 97.81 [degF] Sandeep Lenz MD Work Phone: [facility] 05-20-2023 15:10-0400 Body weight 58.88 kg Sandeep Lenz MD Work Phone: [facility] 05-20-2023 15:10-0400 Diastolic blood pressure 72 mm[Hg] Sandeep Lenz MD Work Phone: [facility] 05-20-2023 15:10-0400 Heart rate 68 /min Sandeep Lenz MD Work Phone: [facility] 05-20-2023 15:10-0400 Respiratory rate 16 /min Sandeep Lenz MD Work Phone: [facility] 05-20-2023 15:10-0400 SaO2% (BldA) [Mass fraction] 99 % Sandeep Lenz MD Work Phone: [facility] 05-20-2023 15:10-0400 Systolic blood pressure 168 mm[Hg] Sandeep Lenz MD Work Phone: [facility] 04-30-2023 14:20-0400 Body temperature 97.59 [degF] Chair Marcos Work Phone: [facility] 04-30-2023 14:20-0400 Diastolic blood pressure 72 mm[Hg] Chair Marcos Work Phone: [facility] 04-30-2023 14:20-0400 Heart rate 64 /min Chair Marcos Work Phone: [facility] 04-30-2023 14:20-0400 Respiratory rate 16 /min Chair Ward Work Phone: [facility] 04-30-2023 14:20-0400 SaO2% (BldA) [Mass fraction] 98 % Chair Ward Work Phone: [facility] 04-30-2023 14:20-0400 Systolic blood pressure 147 mm[Hg] Chair Marcos Work Phone: [facility] 04-29-2023 15:21-0400 Body height 162.6 cm Sandeep Lenz MD Work Phone: [facility] 04-29-2023 15:21-0400 Body temperature 97 [degF] Sandeep Lenz MD Work Phone: [facility] 04-29-2023 15:21-0400 Body weight 58.24 kg Sandeep Lenz MD Work Phone: [facility] 04-29-2023 15:21-0400 Diastolic blood pressure 66 mm[Hg] Sandeep Lenz MD Work Phone: [facility] 04-29-2023 15:21-0400 Heart rate 66 /min Sandeep Lenz MD Work Phone: [facility] 04-29-2023 15:21-0400 Respiratory rate 16 /min Sandeep Lenz MD Work Phone: [facility] 04-29-2023 15:21-0400 SaO2% (BldA) [Mass fraction] 96 % Sandeep Lenz MD Work Phone: [facility] 04-29-2023 15:21-0400 Systolic blood pressure 153 mm[Hg] Sandeep Lenz MD Work Phone: [facility] 05-19-2022 11:30-0400 Diastolic blood pressure 80 mm[Hg] [facility] 05-19-2022 11:30-0400 Heart rate 68 /min [facility] 05-19-2022 11:30-0400 Respiratory rate 16 /min [facility] 05-19-2022 11:30-0400 SaO2% (BldA) [Mass fraction] 98 % [facility] 05-19-2022 11:30-0400 Systolic blood pressure 175 mm[Hg] [facility] 01-08-2022 13:03-0400 Body height 162.6 cm Sandeep Lenz MD Work Phone: [facility] 01-08-2022 13:03-0400 Body temperature 97.39 [degF] Sandeep Lenz MD Work Phone: [facility] 01-08-2022 13:03-0400 Body weight 64.23 kg Sandeep Lenz MD Work Phone: [facility] 01-08-2022 13:03-0400 Diastolic blood pressure 69 mm[Hg] Sandeep Lenz MD Work Phone: [facility] 01-08-2022 13:03-0400 Heart rate 68 /min Sandeep Lenz MD Work Phone: [facility] 01-08-2022 13:03-0400 Respiratory rate 16 /min Sandeep Lenz MD Work Phone: [facility] 01-08-2022 13:03-0400 SaO2% (BldA) [Mass fraction] 97 % Sandeep Lenz MD Work Phone: [facility] 01-08-2022 13:03-0400 Systolic blood pressure 150 mm[Hg] Sandeep Lenz MD Work Phone: [facility] 11-11-2021 13:00-0500 Diastolic blood pressure 69 mm[Hg] MD Eduardo Sharpe Work Phone: [facility] 11-11-2021 13:00-0500 Heart rate 65 /min MD Eduardo Sharpe Work Phone: [facility] 11-11-2021 13:00-0500 Respiratory rate 16 /min MD Eduardo Sharpe Work Phone: [facility] 11-11-2021 13:00-0500 SaO2% (BldA) [Mass fraction] 96 % MD Eduardo Sharpe Work Phone: [facility] 11-11-2021 13:00-0500 Systolic blood pressure 129 mm[Hg] MD Eduardo Sharpe Work Phone: [facility] 11-11-2021 12:00-0500 Body temperature 98 [degF] MD Eduardo Sharpe Work Phone: [facility] 11-11-2021 06:00-0500 Body weight 63 kg MD Eduardo Sharpe Work Phone: [facility] 11-10-2021 12:59-0500 Body height 163.83 cm MD Eduardo Sharpe Work Phone: [facility] 11-09-2021 18:45-0500 Body mass index (BMI) [Ratio] 23.8 kg/m2 MD Eduardo Sharpe Work Phone: [facility] Encounters Encounter Date Encounter Type Care Provider Facility Start: 08-19-2023 End: 08-19-2023 ambulatory EDUARDO SHARPE Facility:[facility] Start: 08-19-2023 Telephone encounter Clemente Hull Hematology/Oncology Comment on above: Results Start: 07-02-2023 End: 07-02-2023 ambulatory EDUARDO SHARPE Facility:[facility] Start: 06-05-2023 End: 06-05-2023 ambulatory Bala Welshgiannapritesh Other [facility] Other Start: 06-05-2023 Telephone encounter Sadimaureen Welshyosvany [facility] Start: 05-21-2023 Telephone encounter Clemente Hull Hematology/Oncology Comment on above: Results Start: 05-20-2023 End: 05-20-2023 ambulatory EDUARDO SHARPE Facility:[facility] Start: 05-20-2023 End: 05-20-2023 Office outpatient visit 25 minutes Sandeep Lenz MD Work Phone: Hematology/Oncology Comment on above: Hypercalcemia (Prima ry Dx); Malignant neoplasm of upper-outer quadrant of left breast in female, estrogen receptor positive (HCC); Stage 3 chronic kidney disease, unspecified whether stage 3a or 3b CKD (HCC) Start: 05-20-2023 Telephone encounter Sandeep bazan MD Work Phone: [facility] Comment on above: Referral Information (Nephrology) Start: 05-09-2023 Social Work Aleida QUESADA Hematolo gy/Oncology Start: 05-07-2023 Refill Sandeep aragon MD Work Phone: Hematology/Oncology Comment on above: Refill Request Start: 04-30-2023 End: 04-30-2023 Infusion Center Chair Nya DuranWard Work Phone: Hematology/Oncology Comment on above: Hypercalcemia (Prima ry Dx); Other specified menopausal and perimenopausal disorders; Malignant neoplasm of upper-outer quadrant of left breast in female, estrogen receptor positive (HCC) Start: 04-29-2023 End: 04-29-2023 ambulatory EDUARDO SHARPE Facility:[facility] Start: 04-29-2023 End: 04-29-2023 Office outpatient visit [...] CKD (HCC) Start: 04-01-2023 End: 04-01-2023 ambulatory [facility] Start: 01-14-2023 End: 01-14-2023 ambulatory [facility] Start: 09-03-2022 End: 09-03-2022 ambulatory RAHEEL [facility] Start: 08-23-2022 End: 09-23-2022 ambulatory SHAIKH Barbara [...] Start: 05-19-2022 End: 05-19-2022 ambulatory [facility] Emergenc y Triage, Treat and Transport Start: 05-19-2022 End: 05-19-2022 Emergency department patient visit [facility] Emergency Triage, Treat and Transport Comment on above: Arrived Start: 05-09-2022 End: 05-10-2022 ambulatory EDUARDO SHARPE Facility:[facility] Start: 05-07-2022 End: 05-08-[address] EDUARDO [...] encounter procedure Sandeep Lenz MD Work Phone: [facility] Comment on above: Malignant neoplasm o f upper-outer quadrant of left breast in female, estrogen receptor positive (HCC) (Primary Dx) Start: 01-05-2022 End: 01-06-2022 ambulatory SANDEEP LENZ Facility:[facility] Start: 12-27-2021 End: 12-27-2021 Patient encounter procedure MD Eduardo Sharpe Work Phone: [facility] [place] Start: 12-22-2021 End: 01-19-[address] EDUARDO SHARPE Facility:[facility] Start: 11-30-2021 End: 11-30-2021 ambulatory Brayden Hernandez Other [facility] [employer] Other Start: 11-30-2021 Office outpatient vi sit 15 minutes Brayden Hernandez [facility] Start: 11-21-2021 End: 12-21-2021 ambulatory SHAIKH Barbara AGUIAR Facility:[facility] Start: 11-17-2021 End: 11-17-2021 Patient encounter procedure MD Eduardo Sharpe Work Phone: [facility] [place] Start: 11-09-2021 End: 11-11-2021 Evaluation and management of inpatient MD Eduardo Sharpe Work Phone: [facility] Start: 11-09-2021 End: 11-09-2021 ambulatory [...] Detail Author Start: 08-19-2026 [facility] Start: 05-20-2026 DIABETES SCREEN DIABETES SCREEN [facility] Start: 05-20-2026 [facility] Start: 04-30-2026 DIABETES SCREEN DIABETES SCREEN [facility] Start: 04-29-2026 DIABETES SCREEN DIABETES SCREEN [facility] Start: 01-08-2025 DIABETES SCREEN DIABETES SCREEN [facility] Start: 08-19-2024 Hemoglobin/Hematocrit Hemoglobin/Hem [facility] Start: 08-19-2024 Serum Creatinine Serum Creatinine [facility] Start: 05-20-2024 HEMOGLOBIN/HEMATOCRIT HEMOGLOBIN/HEM [facility] Start: 05-20-2024 SERUM CREATININE SERUM CREATININE [facility] Start: 04-30-2024 HEMOGLOBIN/HEMATOCRIT HEMOGLOBIN/HEM [facility] Start: 04-30-2024 SERUM CREATININE SERUM CREATININE [facility] Start: 05-24-2023 Influenza vaccination [facility] Start: 04-29-2023 End: 06-29-2023 Parathyrin related protein [Moles/volume] in Serum or Plasma PTH RELATED PEPTIDE Lab Routine Malignant neoplasm of upper-outer quadrant of left breast in female, estrogen receptor positive (HCC) Hypercalcemia Expected: 04/29/2023, Expires: 06/29/2023 [facility] Work Phone: Comment on above: Expected: 04/29/2023 , Expires: 06/29/2023 Start: 04-29-2023 End: 06-29-2023 PTH, INTACT (WITHOUT CALCIUM) PTH, INTACT (WITHOUT CALCIUM) Lab Routine Malignant neoplasm of upper-outer quadrant of left breast in female, estrogen receptor positive (HCC) Hypercalcemia Expected: 04/29/2023, Expires: 06/29/2023 [facility] Work Phone: Comment on above: Expected: 04/29/2023 , Expires: 06/29/2023 Start: 09-23-2022 ADVANCE DIRECTIVE DISCUSSION ADVANCE DIRECTIVE DISCUSSION [facility] Start: 09-23-2022 DEPRESSION ASSESSMENT DEPRESSION ASS ESSMENT [facility] Start: 07-09-2022 End: 09-08-2022 25-hydroxyvitamin D3 [Mass/volume] in Serum or Plasma VITAMIN D 25 HYDROXY Lab Routine Malignant neoplasm of upper-outer quadrant of left breast in female, estrogen receptor positive (HCC) Encounter for screening for osteoporosis Hypercalcemia Expected: 07/09/2022 (Approximate), Expires: 09/08/2022 [facility] Work Phone: Comment on above: Expected: 07/09/2022 (Approximate), Expires: 09/08/2022 Start: 07-09-2022 End: 09-08-2022 Calcitriol [Mass/volume] in Serum or Plasma VITAMIN D1 25-DIHYDR Lab Routine Malignant neoplasm of upper-outer quadrant of left breast in female, estrogen receptor positive (HCC) Encounter for screening for osteoporosis Expected: 07/09/2022 (Approximate), Expires: 09/08/2022 [facility] Work Phone: Comment on above: Expected: 07/09/2022 (Approximate), Expires: 09/08/2022 Start: 07-09-2022 End: 06-30-2023 CBC W Auto Differential panel - Blood CBC + DIFF Lab Routine Malignant neoplasm of upper-outer quadrant of left breast in female, estrogen receptor positive (HCC) Encounter for screening for osteoporosis Expected: 07/09/2022 (Approximate), Expires: 06/30/2023 [facility] Work Phone: Comment on above: Expected: 07/09/2022 (Approximate), Expires: 06/30/2023 Start: 07-09-2022 End: 06-30-2023 Comprehensive metabolic 2000 panel - Serum or Plasma COMP METABOLIC PANEL Lab Routine Malignant neoplasm of upper-outer quadrant of left breast in female, estrogen receptor positive (HCC) Encounter for screening for osteoporosis Expected: 07/09/2022 (Approximate), Expires: 06/30/2023 [facility] Work Phone: Comment on above: Expected: 07/09/2022 (Approximate), Expires: 06/30/2023 Start: 06-23-2022 Influenza vaccination Influenza Vacc ine (#1) [facility] Start: 05-24-2022 Influenza vaccination INFLUENZA (#1) [facility] Start: 09-23-2021 ADVANCE DIRECTIVE DISCUSSION ADVANCE DIRECTIVE DISCUSSION [facility] Start: 09-23-2021 DEPRESSION ASSESSMENT DEPRESSION ASS ESSMENT [facility] Start: 03-10-2021 Adult depression screening assessment DEPRESSION SCREENING [facility] Start: 06-17-2019 Pneumococcal Vaccine : 65+ (2 - PPSV23 or PCV20) Pneumococcal Vaccine: 65+ (2 - PPSV23 or PCV20) [facility] Start: 06-17-2019 PNEUMOCOCCAL: 65+ (2 - PPSV23 if available, else PCV20) PNEUMOCOCCAL: 65+ (2 - PPSV23 if available, else PCV20) [facility] Start: 06-17-2019 PNEUMOCOCCAL: 65+ (2 - PPSV23 or PCV20) PNEUMOCOCCAL: 65+ (2 - PPSV23 or PCV20) [facility] Start: 2009 BONE DENSITY BONE DENSITY [facility] Start: 2009 Bone Density Screening Bone Density Screening [facility] Start: 2009 Pneumococcal vaccination Pneumococcal Vaccine(s) (65+ yrs) (1 - PCV) [facility] Start: 2009 PNEUMOVAX AGE 65 AND OVER WITH 5YR LOOKBACK (#1) PNEUMOVAX AGE 65 AND OVER WITH 5YR LOOKBACK (#1) [facility] Start: 2009 Screening for osteoporosis Bone Densitometry [facility] Start: 2004 RSV Vaccine (1 - 1-d ose 60+ series) RSV Vaccine (1 - 1-dose 60+ series) [facility] Start: 1994 Shingles (RZV) Vacci ne (1 of 2) Shingles (RZV) Vaccine (1 of 2) [facility] Start: 1994 SHINGRIX VACCINE (1 of 2) SHINGRIX VACCINE (1 of 2) [facility] Start: 1963 Urine microalbumin profile [facility] Start: 1962 ANNUAL PCP TEAM PORT PURSER LES DISEASE VISIT ANNUAL PCP TEAM CHRONIC DISEASE VISIT [facility] Start: 1962 HEPATITIS C SCREENING HEPATITIS C SC REENING [facility] Start: 1962 Hepatitis C screening Hepatitis C An tibody [facility] Start: 1962 Tetanus + diphtheria + acellular pertussis vaccine (product) Tdap Booster [facility] Start: 1956 COVID-19 VACCINE (1) COVID-19 VACCIN E (1) [facility] Start: [birth year]-09-1945 COVID-19 Vaccine (#1) COVID-19 Vacci ne (#1) [facility] End: 05-28-2024 Bone &/joint imaging whole body NM BONE WHOLE BODY Radiology Routine Malignant neoplasm of breast in female, estrogen receptor positive, unspecified laterality, unspecified site of breast (HCC) 1 Occurrences starting 04/29/2023 until 05/28/2024 [facility] Work Phone: Comment on above: 1 [...] for 9 Occurrences starting 05/20/2023 until 05/19/2024 [facility] Work Phone: Comment on above: Every [...] Occurrences starting 05/20/2023 until 05/19/2024, 1 completed [facility] Work Phone: Comment on above: Every [...] Occurrences starting 05/20/2023 until 05/19/2024, 1 completed [facility] Work Phone: Comment on above: Every [...] Occurrences starting 05/20/2023 until 05/19/2024, 1 completed [facility] Work Phone: Comment on above: Every 6 weeks for 9 Occurrences starting 05/20/2023 until 05/19/2024, 1 completed Parathyrin related protein [Moles/volume] in Serum or Plasma PTH RELATED PEPTIDE Lab Routine Malignant neoplasm of upper-outer quadrant of left breast in female, estrogen receptor positive (HCC) Hypercalcemia 04/30/2023 3:55 PM EDT [facility] Work Phone: Patient Education Heart Healthy Diet [facility] Work Phone: Patient referral [facility] Work Phone: [facility] Immunizations Immunization Date Immunization Notes Care Provider [facility] 07-11-2022 influenza, high dose seasonal, preservative-free Clemente Srivastava RN [facility] [place] 07-11-2022 pneumococcal polysaccharide vaccine, 23 valent Clemente Srivastava RN [facility] [place] 07-11-2022 influenza virus vacc ine, unspecified formulation Sandeep Lenz MD Work Phone: [facility] [place] 07-07-2021 influenza, high-dose , quadrivalent vaccine (FLUZONE HIGH DOSE QUADRIVALENT) Sandeep Lenz MD Work Phone: [facility] [place] 07-07-2021 unknown vaccine or i mmune globulin Clemente Srivastava RN [facility] [place] 06-12-2021 influenza, high dose seasonal, preservative-free Clemente Srivastava RN [facility] [place] 06-22-2020 influenza, high dose seasonal, preservative-free Sandeep Lenz MD Work Phone: [facility] [place] 06-15-2020 Seasonal trivalent influenza vaccine, adjuvanted, preservative free Sandeep Lenz MD Work Phone: [facility] [place] 06-17-2018 influenza, high dose seasonal, preservative-free Sandeep Lenz MD Work Phone: [facility] [place] 06-17-2018 pneumococcal conjuga te vaccine, 13 valent Sandeep Lenz MD Work Phone: [facility] [place] 07-09-2017 influenza, high dose seasonal, preservative-free Sandeep Lenz MD Work Phone: [facility] [place] 07-09-2017 pneumococcal conjuga te vaccine, 13 valent Sandeep Lenz MD Work Phone: [facility] [place] Payers Date Payer Category Payer Unknown MEDICA RE SUPPLEMENT [id number] 2014-Present [phone] [address] [address] [place] [address] Indemnity [id number] 2014 Unknown MEDICA RE SUPPLEMENT [id number] 2014-Present [phone] [address] [address] [place] [address] Indemnity [id number] 2009 Medicare MEDICARE MEDICAR E A AND B [id number] 2009-Present [phone] [address] [address] [place] [address] Medicare [id number] 2009 Medicare [id number] [id number] 1959 Medicare [id number] 1959 Unknown [id number] 1959 Unknown [id number] 1944 Unknown [id number] 2.16.840.1.713852.3.579.2.647 1944 Unknown [id number] 2.16.840.1.000670.3.579.2.732 1944 Unknown [id number] 2.16.840.1.546930.3.579.2.593 1944 Unknown [id number] 2.16.840.1.546468.3.579.2.593 1944 Unknown [id number] 2.16.840.1.186202.3.579.2.593 1944 Unknown [id number] 2.16.840.1.438958.3.579.2.593 1944 Unknown [id number] 2.16.840.1.554511.3.579.2.593 1944 Unknown [id number] 2.16.840.1.537445.3.579.2.593 1944 Unknown [id number] 2.16.840.1.177479.3.579.2.593 1944 Unknown [id number] 2.16.840.1.823327.3.579.2.593 1944 Unknown [id number] 2.16.840.1.218634.3.579.2.593 1944 Unknown [id number] 2.16.840.1.136476.3.579.2.593 1944 Unknown [id number] 2.16.840.1.753676.3.579.2.593 1944 Unknown [id number] 2.16.840.1.486025.3.579.2.593 1944 Unknown [id number] 2.16.840.1.505576.3.579.2.593 1944 Unknown [id number] 2.16.840.1.930263.3.579.2.593 1944 Unknown [id number] 2.16.840.1.431963.3.579.2.593 1944 Unknown [id number] 2.16.840.1.951276.3.579.2.593 1944 Unknown [id number] 2.16.840.1.264275.3.579.2.593 1944 Unknown [id number] 2.16.840.1.546956.3.579.2.593 1944 Unknown [id number] 2.16.840.1.317780.3.579.2.593 1944 Unknown [id number] 2.16.840.1.737672.3.579.2.593 1944 Unknown [id number] 2.16.840.1.969644.3.579.2.593 1944 Unknown [id number] 2.16.840.1.029978.3.579.2.593 1944 Unknown [id number] 2.16.840.1.290148.3.579.2.593 Medicare Self Pay [id number] Self-pay Self Pay [id number] Unknown [id number] Unknown [id number] Social History Date Type Detail Facility Start: 11-10-2021 End: 04-29-2023 Tobacco smoking status NHIS Never smoked tobacco (finding) [facility] Start: 1945 Sex Assigned At Female F [facility] Start: 06-12-2018 End: 04-29-2023 Tobacco use and exposure Smokeless tobacco non-user [facility] [place] Start: 01-08-2022 End: 08-19-2023 Alcohol intake Current drinker of alcohol (finding) [facility] [place] Start: 06-12-2018 History SDOH Alcohol Comment very rare [facility] [place] Start: 1945 Sex Assigned At Not on file [facility] Start: 12-29-2021 End: 01-08-2022 Exposure to SARS-CoV-2 (event) Not sure [facility] [place] Start: 04-29-2023 End: 08-19-2023 Sex Assigned At [facility] [place] Tobacco smoking status GAIS Tobacco smoking consumption unknown [facility] Start: 04-29-2023 End: 08-19-2023 History of Social function [facility] [place] Adult Depression Screening Assessment 0 [facility] [place] NEGATED: Highlighted rowStart: NINF History of tobacco use Passive smoker [facility] [place] Goals Date Patient Goal Desired Activity /State Functional Status Date Assessment Result Facility 11-09-2021 Functional status Patient at Baseline [facility] Work Phone: Mental Status Date Assessment Result Facility 11-09-2021 Cognitive function Cognitive Sta tus Patient at Baseline [facility] Work Phone: Clinical Notes 09-16-2020 to 08-19-2023 Telephone Encounter - Clemente Srivastava RN - 08/19/2023 2:47 PM ESTTelephone Encounter - Clemente Srivastava RN - 08/19/2023 2:47 PM ESTTelephone Encounter - Jennifer Aviles - 06/10/2023 12:53 PM EDT Note Date & Type Note Facility 08-19-2023 Note HNO ID: [id number] Author: Sandeep Lenz MD Service: ? Author Type: Physician Type: Progress Notes Filed: 08/20/2023 7:07 AM Note Text: [facility] NAME: Andrew Barros CLINIC NO.: [id number] DATE OF SERVICE: August 19, 2023 (Eduardo) [...] outer quadrant, invasive ductal carcinoma, ER postive, IN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 Mammograms at [facility] on 01/04/2021 Bi-Rads 2 benign. __ REVIEW [...] or petechiae. ALLERGIES (more content not included)... [facility] 08-19-2023 Miscellaneous Notes Pt aware of [place]'s message. She denies any additional questions, needs or concerns at this time. Clemente Srivastava RN ----- Message from Sandeep Lenz MD sent at 08/19/2023 2:33 PM EST ----- Calcium janki normal. Kidney function is stable documented in this encounter [facility] 06-10-2023 Miscellaneous Notes Called Nephrology office spoke [...] Thanks! Samina Anderson documented in this encounter [facility] 05-21-2023 Miscellaneous Notes Pt aware of results and denies any questions or concerns at this time. She was transferred to [facility] to set up Q 6 week lab appts as requested. Clemente Srivastava RN ----- Message from Sandeep Lenz MD sent at 05/21/2023 10:15 AM EDT ----- Calcium was improved. - kidney function stable. CBC was normal. documented in this encounter [facility] 05-20-2023 Note HNO ID: [id number] Author: Sandeep Lenz MD Service: ? Author Type: Physician Type: Progress Notes Filed: 05/30/2023 5:58 AM Note Text: [facility] NAME: Papo Andrew [facility] NO.: [id number] DATE OF SERVICE: May 20, 2023 (Eduardo) [...] outer quadrant, invasive ductal carcinoma, ER postive, IN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 Mammograms at [facility] on 01/04/2021 Bi-Rads 2 benign. REVIEW OF [...] wounds or petechiae. ALLERGIES: ALLERGIES Allergen Reactions Hfxjzqp-Aym-Dkl Red* Unknown Other reaction(s): AOF MEDICATIONS: anastrozole [...] See your shae (more content not included)... [facility] 05-20-2023 Instructions Sandeep Lenz MD - 05/20/2023 3:59 PM EDT Continue Arimidex. Refer to nephrology for hypercalcemia and kidney failure Repeat labs today RTC in 3 months - repeat labs documented in this encounter [facility] [place] 05-20-2023 History of Presen t illness Narrative [facility] NAME: Andrew Barros [facility] NO.: [id number] DATE OF SERVICE: May 20, 2023 (Eduardo) [...] outer quadrant, invasive ductal carcinoma, ER postive, IN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 Mammograms at [facility] on 01/04/2021 Bi-Rads 2 benign. REVIEW OF [...] wounds or petechiae. ALLERGIES: ALLERGIES Allergen Reactions Jjwdpfq-Jhl-Vus Red* Unknown Other reaction(s): AOF MEDICATIONS: anastrozole [...] which included preparing to see the patient, huiy-rm-vwjn patient care, completing clinical documentation, obtaining and/or reviewing separately obtained history, performing a medically appropriate examination, communicating results to the patient/family/caregiver and care coordination (not separately reported). Sandeep Lenz MD, CPE Services Provided at: [place], [place] & [place], [place] CC: Eduardo Sharpe MD [address] [facility] [id number] documented in this encounter [facility] [place] 05-09-2023 Note HNO ID: [id number] Author: Aleida Vargas LSW Service: ? Author Type: Convertible Sofa Bedspring Tester Type: Progress Notes Filed: 05/09/2023 11:00 AM Note Text: Patient appears on the [facility] First Time Treatment List for a non-oncology treatment. No psychosocial assessment is indicated. DAPHNE Gupta [facility] 05-09-2023 History of Presen t illness Narrative Patient appears on the [facility] First Time Treatment List for a non-oncology treatment. No psychosocial assessment is indicated. DAPHNE Gupta documented in this encounter [facility] [place] 04-29-2023 Note HNO ID: [id number] Author: Sandeep Lenz MD Service: ? Author Type: Physician Type: Progress Notes Filed: 05/05/2023 6:04 PM Note Text: NAME: Andrew Barros [facility] NO.: [id number] DATE OF SERVICE: April 29, 2023 (Eduardo) [...] outer quadrant, invasive ductal carcinoma, ER postive, IN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 Mammograms at [facility] on 01/04/2021 Bi-Rads 2 benign. REVIEW OF [...] of recurring mass. ALLERGIES: ALLERGIES Allergen Reactions Zhxthxv-Qvv-Wur Red* Unknown Other reaction(s): AOF MEDICATIONS: doxazosin [...] mouth twice elaine (more content not included)... [facility] 04-29-2023 Instructions Sandeep Lenz MD - 04/29/2023 4:09 PM EDT Continue Arimidex. Stop Calcium Continue Vitamin D. Zometa for hypercalcemia later this week Repeat labs and tumor markers prior to zometa Bone scan - [facility] is fine. RTC after Bone scan documented in this encounter [facility] 04-29-2023 History of Presen t illness Narrative Images from the original note were not included. NAME: BarrosAndrew CLINIC NO.: [id number] DATE OF SERVICE: April 29, 2023 (Eduardo) [...] outer quadrant, invasive ductal carcinoma, ER postive, IN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 Mammograms at [facility] on 01/04/2021 Bi-Rads 2 benign. REVIEW OF [...] of recurring mass. ALLERGIES: ALLERGIES Allergen Reactions Yyhoqmw-Liw-Qvn Red* Unknown Other reaction(s): AOF MEDICATIONS: doxazosin [...] acetaminophen 650 mg tab(s) (TYLENOL), DISCONTINUED: zoledronic qw-sfuioktw-1.9NaCl 4 mg iv piggyback 100 mL (ZOMETA) (E83.52) Hypercalcemia Plan: CA 27.29 BLOOD, CA 15-3 BLD, CBC + DIFF, COMP METABOLIC PANEL, PTH, INTACT (WITHOUT CALCIUM), PTH RELATED PEPTIDE, PTH, INTACT (WITHOUT CALCIUM), DISCONTINUED: PHARMACY COMMUNICATION PATIENT ARRIVED, DISCONTINUED: acetaminophen 650 mg tab(s) (TYLENOL), DISCONTINUED: zoledronic uf-asflsulv-6.9NaCl 4 mg iv piggyback 100 mL (ZOMETA) [...] which included preparing to see the patient, ckdy-pi-mviv patient care, completing clinical documentation, obtaining and/or reviewing separately obtained history, performing a medically appropriate examination, communicating results to the patient/family/caregiver and care coordination (not separately reported). Sandeep Lenz MD, CPE Services Provided at: [place], [place] & [place], [place] CC: Eduardo Sharpe MD [address] [facility] [id number] documented in this encounter [facility] 04-01-2023 Note [place] Cardiology - [facility] Subjective Andrew Barros is a 77 [...] February 2023 she was admitted to the [facility] emergency room with epistaxis. She was treated [...] General: Skin i (more content not included)... [facility] 01-14-2023 Note Cardiology Clinic No te Subjective [...] device which was previously discussed with Dr. Sandoval. She is otherwise doing well, denies chest [...] feeling fatigued. -She was recently discharged from [facility] d/t PNA and sepsis. She was also [...] perfused Neuro: A&Ox3, (more content not included)... [facility] 09-03-2022 Note Patient here for 3 m o follow up PAF and to re-discuss the Watchman device. Most recent hospital discharge was 08/24/22 from [facility]. She was started on digoxin. She saw Dr. Sharpe last week for hospital follow up and her amlodipine was put on hold for now due to hypotension. C/o fatigue. She's using O2 at night. Review of Systems Constitutional: Positive for malaise/fatigue and weight loss. Musculoskeletal: Positive for muscle weakness. All other systems reviewed and are negative. [facility] 09-03-2022 Note Cardiovascular Medic eliud [facility] Cardiology SUBJECTIVE Chief Complaint Patient presents with Hospital Follow-up Andrew Barros is a 76 y.o. female here for follow-up. HPI Patient here for 3 mo follow up PAF and to re-discuss the Watchman device. Most recent hospital discharge was 08/24/22 from [facility]. She was started on digoxin. She saw Dr. Sharpe last week for hospital follow up and her amlodipine was put on hold for now due to hypotension. C/o fatigue. She's using O2 at night. 09/03/2022 -She c/o feeling fatigued. -She was recently discharged from [facility] d/t PNA and sepsis. She was also [...] Alcohol use: Not Currently Allergies Allergen Reactions Utqmwyq-Jrc-Gil Reductase Inhibitors Other Other reaction(s): AOF ROS [...] TAKE 1 TABL (more content not included)... [facility] 06-29-2022 Miscellaneous Notes Patient has an appt on 07/09/22. Would you like labs, if so place orders. Arabella Cotter MA documented in this encounter [facility] 05-19-2022 History of Presen t illness Narrative Images from the original note were not included. EMERGENCY TRIAGE, TREAT AND TRANSPORT (ET3) DOCUMENTATION OF TELEHEALTH VISIT Date / Time: 05/19/2022 / 1130 Name: Andrew Barros : 1945 SSN: (Not on file) EMS Agency: [facility] [x] Verbal consent obtained [] [...] Kristian Mcwilliams MD documented in this encounter [facility] 01-08-2022 History of Presen t illness Narrative Images from the original note were not included. Radiation Oncology - Follow Up Note PATIENT NAME: Andrew Barros PATIENT DIAGNOSIS/PATIENT IDENTIFICATION: Ms. Barros is a 76-year old female with Infiltrating ductal carcinoma of the Left breast, UOQ, pathologic stage IIA (pT1c pN1a M0), ER-positive, IN-positive and Her2/lauren not amplified, s/p partial mastectomy [...] was otherwise noncontributory. ALLERGIES ALLERGIES Allergen Reactions Lttgdro-Ioo-Aul Red* Unknown Other reaction(s): AOF MEDICATIONS: Current [...] pathologic stage IIA (pT1c pN1a M0), ER-positive, IN-positive and Her2/lauren not amplified, s/p partial mastectomy [...] which included preparing to see the patient, cxqw-bh-rihc patient care and counseling and educating the patient/family/caregiver. This document has been created with the use of voice recognition technology. It may contain inaccuracies, misspellings, inaccurate syntax or inappropriate word context that are a result of the inadequacies/shortcomings of said technology/software. documented in this encounter [facility] 01-08-2022 History of Presen t illness Narrative Images from the original note were not included. NAME: Andrew Barros [facility] NO.: [id number] DATE OF SERVICE: January 08, 2022 Some [...] outer quadrant, invasive ductal carcinoma, ER postive, IN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 Mammograms at [facility] on 01/04/2021 Bi-Rads 2 benign. REVIEW OF [...] of recurring mass. ALLERGIES: ALLERGIES Allergen Reactions Ltjbojp-Epa-Kwc Red* Unknown Other reaction(s): AOF MEDICATIONS: amLODIPine [...] which included preparing to see the patient, wozp-hx-belq patient care, completing clinical documentation, obtaining and/or reviewing separately obtained history, performing a medically appropriate examination, communicating results to the patient/family/caregiver and care coordination (not separately reported). Sandeep Lenz MD, CPE Services Provided at: [place], [place] & [place], [place] CC: Eduardo Sharpe MD [address] [facility] [id number] documented in this encounter [facility] 01-08-2022 Nurse Note Patient has had brain bleeds since being here last she is seeing Dr. Hernandez , she has been in [facility] as an inpatient due to the bleeds. Arabella Cotter MA documented in this encounter [facility] 11-30-2021 Evaluation note Encounter Date Diagnosis Assessment [...] present CT and compared to the previous. LISNR Other 12-25-2020 NoteMicrobiology PROCEDURE: Blood Culture Charcoal [R1] SOURCE: Blood BODY SITE: Arm L COLLECTED DATE/TIME: 09/09/2020 13:00 EST RECEIVED DATE/TIME: 09/09/2020 14:05 EST START DATE/TIME: 09/09/2020 14:05 EST FREE TEXT SOURCE: Koko Gallardo DO, DO, John FINAL REPORTS Final Report [] Verified Date/Time: 09/16/2020 16:03 EST No growth at 7 days. Performing Locations R1: This [facility] performed at: [facility], [address] [place] [address], [address] [place] [address], IhdgrbMer[facility] HospitalComment on above:Performed By: #### [id number] ####[facility] [address] [place] [address] [id number] NoteMicrobiology PROCEDURE: Blood Culture Charcoal [R1] SOURCE: Blood BODY SITE: Hand L COLLECTED DATE/TIME: 09/09/2020 13:49 EST RECEIVED DATE/TIME: 09/09/2020 14:06 EST START DATE/TIME: 09/09/2020 14:06 EST FREE TEXT SOURCE: Koko Pettit DO, DO, John FINAL REPORTS Final Report [] Verified Date/Time: 09/16/2020 16:01 EST No growth at 7 days. Performing Locations R1: This test was performed at: [facility], [address] [place] [address], [address] [place] [address], FgdqtmMer[facility] HospitalComment on above:Performed By: #### [id number] #### [facility] [address] [place] [address] [id number] note* Diagnosis Onset Date Resolution Status Atrial fibrillation acute Diabetes acute Hypertension acute Intracerebral hemorrhage acu te Nontraumatic intracerebral hemorrhage acute [facility] Work Phone: Evaluation note* Diagnosis Malignant neoplasm of upper-outer quadrant of left breast in female, estrogen receptor positive (HCC)- Primary Encounter for screening for osteoporosis Special screening for osteoporosis Hypercalcemia [facility] Diagnosis Malignant neoplasm of upper-outer quadrant of left breast in female, estrogen receptor positive (HCC)- Primary documented in this encounter [facility] note* Diagnosis Dyspnea, unspecified type- Primary documented in this encounter [facility] note* Diagnosis Malignant neoplasm of upper-outer quadrant of left breast in female, estrogen receptor positive (HCC)- Primary Encounter for screening for osteoporosis Special screening for osteoporosis Hypercalcemia Hypercalcemia documented in this encounter [facility] note* Diagnosis Malignant neoplasm of upper-outer quadrant of left breast in female, estrogen receptor positive (HCC) documented in this encounter [facility] note* Diagnosis Hypercalcemia- Primary Other specified menopausal and perimenopausal disorders Malignant neoplasm of upper-outer quadrant of left breast in female, estrogen receptor positive (HCC) documented in this encounter [facility] note* Diagnosis Malignant neoplasm of upper-outer quadrant of left breast in female, estrogen receptor positive (HCC)- Primary Hypercalcemia Malignant neoplasm of breast in female, estrogen receptor positive, unspecified laterality, unspecified site of breast (HCC) Stage 3 chronic kidney disease, unspecified whether stage 3a or 3b CKD (HCC) documented in this encounter [facility] note* Diagnosis Malignant neoplasm of upper-outer quadrant of left breast in female, estrogen receptor positive (HCC) documented in this encounter [facility] note* Diagnosis Hypercalcemia- Primary Malignant neoplasm of upper-outer quadrant of left breast in female, estrogen receptor positive (HCC) Stage 3 chronic kidney disease, unspecified whether stage 3a or 3b CKD (HCC) documented in this encounter [facility] noteNo InformationNort [employer] ([employer]) Other History general Narrative - Reported* Type Description Date Medical History hypertension Medical History heart disease Medical History Esophageal reflux Medical History diabetes mallitus Medical History cancer Surgical History breast cancer Hospitalization History See Above LISNR Other reason for referral (narrative)* Diagnostic Procedure Only (Routine) - Pending Review Specialty Diagnoses / Procedures Referred By Contac t Referred To Contact MOLECULAR & FUNCTIONAL IMAGING Diagnoses Malignant neoplasm of breast in female, estrogen receptor positive, unspecified laterality, unspecified site of breast (HCC) Procedures NM BONE WHOLE BODY BONE &/JOINT IMAGING WHOLE BODY Sandeep Lenz MD [address] [place] [address] [address] [place] [address] Molecular & Functional Imaging [address] [place] [address] Referral ID Status Reason Start Date Expiration Date Visits Requested Visits Authorized [id number] Pending Review Auto-Generat ed Referral 04/29/2023 05/28/2024 1 1 [facility] Summary Purpose Family History No Family History [...] 04/30/2023 2:46 PM EDT 650 mg zoledronic gl-uqwyzmvk-7.9NaCl 4 mg iv piggyback 100 mL (ZOMETA) [...] HIGH MDM 60-74 MINUTES Sandeep Lenz MD [address] [place] [address] [address] [place] [address] Referral ID Status Reason Start Date Expiration Date Visits Requested Visits Authorized [id number] Authorized PCP Requested Referral 05/20/2023 05/19/2024 1 1 Additional Source Comments INFORMATION SOURCE (unrecogn ized section and content) DATE CREATED AUTHOR 01/18/2021 Guilherme Siddiqi [facility] DATE CREATED AUTHOR AUTHOR'S ORGANIZ ATION 01/10/2022 [facility] DATE CREATED AUTHOR AUTHOR'S ORGANIZ ATION 05/15/2022 [facility] DATE CREATED AUTHOR AUTHOR'S ORGANIZ ATION 05/22/2022 [facility] DATE CREATED AUTHOR AUTHOR'S ORGANIZ ATION 09/24/2022 [facility] DATE CREATED AUTHOR AUTHOR'S ORGANIZ ATION 04/01/2023 [facility] DATE CREATED AUTHOR AUTHOR'S ORGANIZ ATION 08/20/2023 [facility] Care Teams (unrecognized sec tion and [...] Eduardo Sharpe MD Primary Care Provider Active [employer] Relationship Specialty Start Date End Date Eduardo Sharpe MD [address] [place] [place] [id number] PCP - General Family Practice 05/30/18 [employer] Relationship Specialty Start Date End Date Eduardo Sharpe MD [address] [id number] PCP - General Family Practice 05/30/18 [employer] Relationship Specialty Start Date End Date Eduardo Sharpe MD [address] [id number] PCP - General Family Medicine 05/30/18 [employer] Relationship Specialty Start Date End Date Eduardo Sharpe MD [address] [id number] PCP - General Family Medicine 05/30/18 [employer] Relationship Specialty Start Date End Date Eduardo Sharpe MD PCP - General Family Medicine 05/30/18 [employer] Relationship Specialty Start Date End Date Eduardo Sharpe MD PCP - General Family Medicine 05/30/18 [employer] Rep[employer] Relationship Specialty Start Date End Date Eduardo Sharpe MD PCP - General Family Medicine 05/30/18 [employer] Relationship Specialty Start Date End Date Eduardo Sharpe MD PCP - General Family Medicine 05/30/18 [employer] Relationship Specialty Start Date End Date Eduardo Sharpe MD PCP - General Family Medicine 05/30/18 [employer] Rep[employer]man Relationship Specialty Start Date End Date Eduardo Sharpe MD PCP - General Family Medicine 05/30/18 [employer] Relationship Specialty Start Date End Date Eduardo Sharpe MD PCP - General Family Medicine 05/30/18 [employer] Relationship Specialty Start Date End Date Eduardo Sharpe MD PCP - General Family Medicine 05/30/18 Source Comments (unrecognize d section and content) In the event this informatio n is protected by the Federal Confidentiality of Alcohol and Drug Abuse Patient Records regulations: The Federal rules restrict any use of the information to criminally investigate or prosecute any alcohol or drug abuse patient.[facility] the event this information is protected by the Federal Confidentiality of Alcohol and Drug Abuse Patient Records regulations: The Federal rules restrict any use of the information to criminally investigate or prosecute any alcohol or drug abuse patient.[facility] the event this information is protected by the Federal Confidentiality of Alcohol and Drug Abuse Patient Records regulations: The Federal rules restrict any use of the information to criminally investigate or prosecute any alcohol or drug abuse patient.[facility] the event this information is protected by the Federal Confidentiality of Alcohol and Drug Abuse Patient Records regulations: The Federal rules restrict any use of the information to criminally investigate or prosecute any alcohol or drug abuse patient.[facility] the event this information is protected by the Federal Confidentiality of Alcohol and Drug Abuse Patient Records regulations: The Federal rules restrict any use of the information to criminally investigate or prosecute any alcohol or drug abuse patient.[facility] the event this information is protected by the Federal Confidentiality of Alcohol and Drug Abuse Patient Records regulations: The Federal rules restrict any use of the information to criminally investigate or prosecute any alcohol or drug abuse patient.[facility] the event this information is protected by the Federal Confidentiality of Alcohol and Drug Abuse Patient Records regulations: The Federal rules restrict any use of the information to criminally investigate or prosecute any alcohol or drug abuse patient.[facility] the event this information is protected by the Federal Confidentiality of Alcohol and Drug Abuse Patient Records regulations: The Federal rules restrict any use of the information to criminally investigate or prosecute any alcohol or drug abuse patient.[facility] the event this information is protected by the Federal Confidentiality of Alcohol and Drug Abuse Patient Records regulations: The Federal rules restrict any use of the information to criminally investigate or prosecute any alcohol or drug abuse patient.[facility] the event this information is protected by the Federal Confidentiality of Alcohol and Drug Abuse Patient Records regulations: The Federal rules restrict any use of the information to criminally investigate or prosecute any alcohol or drug abuse patient.[facility] the event this information is protected by the Federal Confidentiality of Alcohol and Drug Abuse Patient Records regulations: The Federal rules restrict any use of the information to criminally investigate or prosecute any alcohol or drug abuse patient.[facility] the event this information is protected by the Federal Confidentiality of Alcohol and Drug Abuse Patient Records regulations: The Federal rules restrict any use of the information to criminally investigate or prosecute any alcohol or drug abuse patient.[facility] Reason for Visit (unrecogniz ed section and [...] and perimenopausal disorders Hypercalcemia Sandeep Lenz MD [address] [place] [address] [address] [place], [place] [address] [employer] [facility] [address] [place] [address] Referral ID Status Reason Start Date Expiration Date V isits Requested Visits Authorized [id number] Authorized 04/29/2023 07/28/2023 99 99 Reason Comments [...] BE BASED ON THE PRIMARY CLINICAL RECORDS. [facility]. provides no warranty or guarantee of the accuracy or completeness of information in this document.
[2023-09-29] MEDS: 0.9 % SODIUM CHLORIDE 1,000 ML 1000 ML IV (10:19)
[2023-09-29 10:25] LABS: Basophils Absolute Auto 0.1 10^3/uL (0.0-0.1); Basophils Percent Auto 0.4 % (0.2-2.0); Eosinophils Absolute Auto 0.2 10^3/uL (0.0-0.7); Eosinophils Percent Auto 1.5 % (0.9-7.0); Hematocrit 35.8 % (36.0-48.0); Hemoglobin 11.8 g/dL (12.0-16.0); Immature Granulocytes Abs Auto 0.09 10^3/uL (0.00-0.03); Immature Granulocytes Pct Auto 0.6 % (0.0-0.5); Lymphocytes Absolute Auto 1.5 10^3/uL (1.2-3.8); Lymphocytes Percent Auto 10.3 % (20.5-60.0); Mean Corpuscular Hemoglobin 31.1 pg (26.7-34.0); Mean Corpuscular Volume 94.2 fL (81.0-99.0); Mean Platelet Volume 10.3 fL (9.5-13.5); Monocytes Absolute Auto 1.2 10^3/uL (0.3-0.8); Monocytes Percent Auto 8.3 % (1.7-12.0); Neutrophils Absolute Auto 11.2 10^3/uL (1.4-6.5); Neutrophils Percent Auto 78.9 % (43.0-75.0); Platelet Count 356 10^3/uL (150-450); Red Cell Distribution Width 11.9 % (11.0-15.0); White Blood Count 14.2 10^3/uL (4.0-11.0)
[2023-09-29 10:42] LABS: Alanine Aminotransferase 12 U/L (14-59); Albumin Globulin Ratio 0.6; Albumin Level 2.8 g/dL (3.4-5.0); Alkaline Phosphatase 78 U/L (46-116); Anion Gap 14.5; Aspartate Amino Transferase 13 U/L (15-37); Bilirubin Total 0.5 mg/dL (0.2-1.0); Calcium 9.6 mg/dL (8.5-10.1); Chloride 96 mmol/L (98-107); Estimated GFR (African America 29 (>=60); Estimated GFR (Non-African Ame 24 (>=60); Globulin 4.8 g/dL; Glucose 169 mg/dL (74-106); Magnesium 1.5 mg/dL (1.8-2.4); Potassium 3.5 mmol/L (3.5-5.1); Sodium 138 mmol/L (136-145); Total Protein 7.6 g/dL (6.4-8.2)
--- NOTE | 2023-09-29 10:51 | ED.NAVMDI1 ---
HPI - Nausea/Vomiting/Diarrhea General Chief complaint: Nausea/Vomiting/Diarrhea Stated complaint: DIARRHEA Time Seen by Provider: 09/29/23 09:53 Source: patient Mode of arrival: Wheelchair History of Present Illness HPI Narrative: Patient recently diagnosed with pneumonia and discharged home with Keflex as well azithromycin is coming to us with a severe diarrhea that is causing her not to be able to go to sleep she did mention that she went to the bathroom at night at least 6 times. No abdominal pain no nausea no vomiting she is drinking but not enough according to her daughter.\ No other complaints Related Data Home Medications Medication Instructions Recorded Confirmed amlodipine 5 mg tablet 5 mg PO BID 09/23/23 09/23/23 anastrozole 1 mg tablet 1 mg PO DAILY 09/23/23 09/23/23 aspirin 81 mg tablet,delayed 81 mg PO DAILY 09/23/23 09/23/23 release (Adult Aspirin Regimen) carvedilol 25 mg tablet 25 mg PO Q12H 09/23/23 09/23/23 doxazosin 4 mg tablet 4 mg PO DAILY 09/23/23 09/23/23 ezetimibe 10 mg tablet 10 mg PO DAILY 09/23/23 09/23/23 ferrous sulfate 325 mg (65 mg 325 mg PO BID 09/23/23 09/23/23 iron) tablet furosemide 40 mg tablet 40 mg PO DAILY 09/23/23 09/23/23 metformin 500 mg tablet 500 mg PO BID 09/23/23 09/23/23 omeprazole 40 mg capsule,delayed 40 mg PO DAILY 09/23/23 09/23/23 release propafenone 325 mg 325 mg PO Q12H 09/23/23 09/23/23 capsule,extended release 12 hr Previous Rx's Medication Instructions Recorded amoxicillin 875 mg-potassium 1 tab PO Q12H #14 tabs 03/04/23 clavulanate 125 mg tablet azithromycin 250 mg tablet 250 mg PO DAILY 4 days #4 tabs 09/23/23 cephalexin 500 mg capsule 500 mg PO TID 7 days #21 caps 09/23/23 Allergies Allergy/AdvReac Type Severity Reaction Status Date / Time No Known Drug Allergies Allergy Verified 09/23/23 19:26 Review of Systems ROS Status of ROS 10 or more systems reviewed and unremarkable except as noted in history and below PFSH PFSH Social History Smoking status: Never smoker Exam Narrative Exam Narrative: Nurses notes and vital signs reviewed and patient is not hypoxic. General: Well-appearing and in no apparent distress. Skin: Warm, dry, no pallor noted. No rash. Head: Normocephalic, atraumatic. Neck: Supple, non-tender. Eye: Pupils are equal, round and EOMI. No scleral icterus. Ears, Nose, Mouth, and Throat: TM are clear, no nasal mucosal hypertrophy. Oral mucosa is moist, no posterior oropharynx erythema, uvula is mid-line Cardiovascular: Regular Rate and Rhythm without murmur, gallop or rub. Respiratory: No accessory muscle use or respiratory distress. Lungs are clear to auscultation, no wheezing, rales or rhonchi Chest Wall: no tenderness Back: No midline thoracic or lumbar vertebral tenderness. No CVA tenderness Musculoskeletal: normal ROM, no calf or popliteal tenderness, no lower extremity edema/swelling GI: Abdomen is soft, non-distended. Normal bowel sounds. No masses appreciated. No tenderness to palpation. No rebound, guarding, or rigidity noted. Neurological: A&O x4. No cranial nerve dysfunction observed. No truncal ataxia. Moves all extremities. Sensation intact. Psychiatric: Cooperative and interactive. Normal mood and affect. Constitutional Vital Signs, click to edit/add: Last Vital Signs Temp 97.5 F L 09/29/23 09:51 Pulse 64 09/29/23 09:51 Resp 16 09/29/23 09:51 BP 153/64 H 09/29/23 09:51 Pulse Ox 94 L 09/29/23 09:51 O2 Del Method Room Air 09/29/23 09:51 Course Vital Signs Vital signs: Vital Signs Temperature 97.5 F L 09/29/23 09:51 Pulse Rate 64 09/29/23 09:51 Respiratory Rate 16 09/29/23 09:51 Blood Pressure 153/64 H 09/29/23 09:51 Pulse Oximetry 94 L 09/29/23 09:51 Oxygen Delivery Method Room Air 09/29/23 09:51 Temperature 97.5 F L 09/29/23 09:51 Pulse Rate 64 09/29/23 09:51 Respiratory Rate 16 09/29/23 09:51 Blood Pressure 153/64 H 09/29/23 09:51 Pulse Oximetry 94 L 09/29/23 09:51 Oxygen Delivery Method Room Air 09/29/23 09:51 MDM - Nausea/Vomiting/Diarrhea MDM Narrative Medical decision making narrative: The patient CBC shows improvement in the leukocytosis Chemistry showing hypomagnesemia with magnesium 1.4 The patient EKG showing sinus rhythm with a heart rate of [address] elevation or depression Patient provided with magnesium 2 g in the ER and she was admitted under Dr. Mcnamara after discussing the case with him Lab Data Labs: Lab Results 09/29/23 Range/Units 10:13 WBC 14.2 H (4.0-11.0) 10^3/uL RBC 3.80 L (4.20-5.40) 10^6/uL Hgb 11.8 L (12.0-16.0) g/dL Hct 35.8 L (36.0-48.0) % MCV 94.2 (81.0-99.0) fL MCH 31.1 (26.7-34.0) pg MCHC 33.0 (29.9-35.2) g/dL RDW 11.9 (11.0-15.0) % Plt Count 356 (150-450) 10^3/uL MPV 10.3 (9.5-13.5) fL Neut % (Auto) 78.9 H (43.0-75.0) % Lymph % (Auto) 10.3 L (20.5-60.0) % [place] % (Auto) 8.3 (1.7-12.0) % Eos % (Auto) 1.5 (0.9-7.0) % Baso % (Auto) 0.4 (0.2-2.0) % Neut # (Auto) 11.2 H (1.4-6.5) 10^3/uL Lymph # (Auto) 1.5 (1.2-3.8) 10^3/uL [place] # (Auto) 1.2 H (0.3-0.8) 10^3/uL Eos # (Auto) 0.2 (0.0-0.7) 10^3/uL Baso # (Auto) 0.1 (0.0-0.1) 10^3/uL Abs Immat Gran (auto) 0.09 H (0.00-0.03) 10^3/uL Imm/Tot Granulo (auto) 0.6 H (0.0-0.5) % Sodium 138 (136-145) mmol/L Potassium 3.5 (3.5-5.1) mmol/L Chloride 96 L (98-107) mmol/L Carbon Dioxide 31.0 (21.0-32.0) mmol/L Anion Gap 14.5 BUN 26.0 H (7.0-18.0) mg/dL Creatinine 2.00 H (0.55-1.02) mg/dL Est GFR ( Amer) 29 L (>=60) Est GFR (Non-Af Amer) 24 L (>=60) BUN/Creatinine Ratio 13.0 Glucose 169 H (74-106) mg/dL Calcium 9.6 (8.5-10.1) mg/dL Magnesium 1.5 L (1.8-2.4) mg/dL Total Bilirubin 0.5 (0.2-1.0) mg/dL AST 13 L (15-37) U/L ALT 12 L (14-59) U/L Alkaline Phosphatase 78 (46-116) U/L Total Protein 7.6 (6.4-8.2) g/dL Albumin 2.8 L (3.4-5.0) g/dL Globulin 4.8 g/dL Albumin/Globulin Ratio 0.6 Discharge Plan Discharge Chief Complaint: Nausea/Vomiting/Diarrhea Clinical Impression: Hypomagnesemia Acute kidney failure, unspecified Qualifiers: Acute renal failure type: unspecified Qualified Code(s): N17.9 - Acute kidney failure, unspecified Patient Disposition: Admitted As Inpatient Time of Disposition Decision: 10:57 Condition: Good
--- NOTE | 2023-09-29 10:55 | ECG_ITS ---
[facility] Test Date: 2023-09-29 Pat Name: ANDREW JAMISON Department: Room: - Gender: Female [employer]: : [id number] Requested By: EDUARDO SHARPE Order Number: [id number] Reading MD: EDUARDO SHARPE Measurements Intervals [place] Rate: 71 P: 76 MO: 298 QRS: -60 QRSD: 148 T: 105 QT: 360 QTc: 382 Interpretive Statements 1100 Sinus rhythm 2231 First degree AV block 2550 Left bundle branch block 9150 abnormal ECG Compared to ECG 09/23/2023 19:27:02 Left bundle-branch block now present Myocardial infarct finding no longer present Left ventricular hypertrophy no longer present Early repolarization no longer present Electronically Signed On 10-01-2023 5:30:16 EST by EDUARDO SHARPE
[2023-09-29] MEDS: MAGNESIUM SULFATE IN WATER 2 GM/50 ML PREMIX IV (11:04)
--- NOTE | 2023-09-29 11:10 | P.HP_ITS ---
H&P: HPI History of Present Illness Chief complaint: DIARRHEA, ACUTE KIDNEY FAILURE Narrative: Patient presented to the emergency room with increasing weakness and severe diarrhea. She has recently been treated for pneumonia. No blood in the diarrhea, no fevers, no abdominal pain. In ER found to have significant dehydration with acute kidney injury with an elevation of her creatinine to 33% above baseline. Hypomagnesemia. Patient will be admitted for workup and treatment of same Review of Systems ROS Status of ROS 10 or more systems reviewed and unremark able except as noted in history and below PFSH PFSH Social History Smoking status: Never smoker Highest level of school completed/degree received: high school graduate Meds Home Medications and Allergies Home Medications Medication Instructions Recorded Confirmed Type amlodipine 5 mg tablet 5 mg PO BID 09/23/23 09/29/23 History anastrozole 1 mg tablet 1 mg PO DAILY 09/23/23 09/29/23 History aspirin 81 mg tablet,delayed 81 mg PO DAILY 09/23/23 09/29/23 History release (Adult Aspirin Regimen) carvedilol 25 mg tablet 25 mg PO Q12H 09/23/23 09/29/23 History doxazosin 4 mg tablet 4 mg PO DAILY 09/23/23 09/29/23 History ezetimibe 10 mg tablet 10 mg PO DAILY 09/23/23 09/29/23 History ferrous sulfate 325 mg (65 mg 325 mg PO BID 09/23/23 09/29/23 History iron) tablet furosemide 40 mg tablet 40 mg PO DAILY 09/23/23 09/29/23 History metformin 500 mg tablet 500 mg PO BID 09/23/23 09/29/23 History omeprazole 40 mg capsule,delayed 40 mg PO DAILY 09/23/23 09/29/23 History release propafenone 325 mg 325 mg PO Q12H 09/23/23 09/29/23 History capsule,extended release 12 hr Allergies Allergy/AdvReac Type Severity Reaction Status Date / Time No Known Drug Allergies Allergy Verified 09/23/23 19:26 Exam Constitutional Vital Signs, click to edit/add: Last Vital Signs Temp 97.5 F L 09/29/23 09:51 Pulse 64 09/29/23 09:51 Resp 16 09/29/23 09:51 BP 153/64 H 09/29/23 09:51 Pulse Ox 94 L 09/29/23 09:51 O2 Del Method Room Air 09/29/23 09:51 Documenting provider has reviewed patient's vital signs: yes Common normals: no apparent distress HENMT Common normals: oral mucous membranes not moist Respiratory Common normals: normal respiratory effort and no retractions Cardio Common normals: regular rate and regular rhythm GI Common normals: Normal to inspection, nondistended, normoactive bowel sounds present, soft to palpation and non-tender Results Labs Labs: Short CBC 09/29/23 Range/Units 10:13 WBC 14.2 H (4.0-11.0) 10^3/uL Hgb 11.8 L (12.0-16.0) g/dL Hct 35.8 L (36.0-48.0) % Plt Count 356 (150-450) 10^3/uL BMP 09/29/23 10:13 Sodium 138 Potassium 3.5 Chloride 96 L Carbon Dioxide 31.0 BUN 26.0 H Creatinine 2.00 H Glucose 169 H Calcium 9.6 Liver Function 09/29/23 Range/Units 10:13 Total Bilirubin 0.5 (0.2-1.0) mg/dL AST 13 L (15-37) U/L ALT 12 L (14-59) U/L Alkaline Phosphatase 78 (46-116) U/L Albumin 2.8 L (3.4-5.0) g/dL Assessment and Plan Assessment and Plan (1) Hypomagnesemia: (2) Acute kidney failure, unspecified: Qualifiers: Acute renal failure type: unspecified Qualified Code(s): N17.9 - Acute kidney failure, unspecified Plan Recurrent diarrhea without hematochezia, uncontrolled hypertension, leukocytosis secondary to possible gastroenteritis versus C. difficile colitis with recently placed on antibiotics for pneumonia. Pending results will start patient on oral Flagyl may need to change to vancomycin if is positive and depending on pro gression of leukocytosis. IV fluids for dehydration. Check lactate Recent pneumonia-lungs are clear we will hold off on further oral antibiotics Acute kidney injury with creatinine 33% above baseline. IV fluids, history of heart failure in the past so cannot give large fluid boluses. Hypertension-continue with home medications, as needed hydralazine NIDDM-insulin sliding scale L Better than a 50% chance the patient will be discharged tomorrow so maintain patient as an observation status
--- OUTSIDE RECORDS SUMMARY | 2023-09-29 12:00 | XMS_ITS | CCD ---
Author Name Unknown Address [address] [facility] [address] [place] [address] Organization [facility] Care Team Providers Care Road Passenger Firer Name Role Phone MD Eduardo Sharpe Primary Care Provider [phone] MD Radha Echavarriaop Admit Provider MD Shaka Echavarria Attending Provider [phone] MD Brayden Hernandez Other Provider MD Brayden Hernandez Attending Provider Eduardo Sharpe MD Primary Care Provider [phone] Brayden Hernandez Unavailable EDUARDO SHARPE Primary Care Unavailable EDUARDO SHAPRE Referring Unavailable GANESH HALE Admitting Unavailable GANESH HALE Attending Unavailable Unavailable Primary Care Provider Unavailcharles e PROVIDER, UNKNOWN Attending Unavailable PROVIDER, UNKNOWN Admitting Unavailable Eduardo Sharpe MD Primary Care Provider [phone] MIKALA HIGGINS Admitting Unavailable MIKALA HIGGINS Attending [...] Unavailable Eduardo Sharpe MD Primary Care Provider [phone] AnithaBlaa bar Unavailable HOY, EDUARDO M Primary Care [...] Date of Onset Reaction(s) Facility (1 source) Hcrqrdc-TZM-WpW Reductase Inhibitor Propensity to adverse reactions 0 [facility] (4 sources) HMG-CoA reductase inhibitor; Translations: [UZXIHTZ-KGS-KEC REDUCTASE INHIBITORS] Drug Allergy 8 Unknown [facility] (1 source) black walnut pollen extract Drug Allergy 8 [facility] (10 sources) HMG-CoA reductase inhibitor Drug Allergy 8 Unknown [facility] (2 sources) Simvastatin Drug Allergy [facility] [...] 8:13pm Start: 04-12-2021 take 1 capsule by [facility] every twelve hours, then take 1 [...] 10, 2020 1:30am November 09, 2021 7:27pm [id number] actuat albuterol 0.09 mg/actuat metered dose [...] (Bisacodyl)) 10 mg Suppository Discontinued 10 MG IA Daily September 10, 2020 1:30am September 19, [...] 20 mg/ml oral solution (1 source) Uncompetitive S-qydyiy-S-aspartate Receptor Antagonist, Sigma-1 Agonist Start: End: take [...] 2:05am September 10, 2020 2:21am lactobacillus acidophilus [id number] unt / pectin 10 mg oral capsule (1 source) Start: 09-10-2020 End: 09-19-2020 take 1 capsule by mouth four times daily Acidophilus-Pectin , Vanoss (Acidophilus Probiotic) 100 million cell-10 mg Capsule [...] Comment on above: Take 1 capsule by [facility] once daily. nitroglycerin 0.4 mg sublingual [...] September 15, 2020 12:43pm polyethylene glycol 3350 18239 mg powder for oral solution (1 source) [...] 19-7 gram/118 mL Enema Discontinued 118 ML IA Daily September 10, 2020 1:59am September 19, [...] Onset: 01-11-2022 Chronic Other aftercare (1 source) [facility] (current) use of oral hypoglycemic drugs; Translations: [[facility]IV[facility] USE ORAL HYPOGLYCEMIC DX] Onset: 09-03-2022 Episodic Other aftercare (1 source) Other long-term (current) drug therapy; Translations: [OTH 1ST PRESSMAN CURRENT DRUG THERAPY] Onset: 09-03-2022 Episodic Other aftercare (1 source) [facility] (current) use of aspirin; Translations: [S[facility] LIVING CURRENT USE OF ASPIRIN] Onset: 09-03-2022 Episodic Other aftercare (1 source) [facility] (current) use of anticoagulants; Translations: [SENIOR LIVING CURRNT USE ANTICOAGULANTS] Onset: 08-25-2022 Episodic Other [...] Basophils (Bld) [#/Vol] 0.06 10*3/uL Normal <0.11 [facility] Comment on above: Order Comment: Speci men Type: BLOOD SPECIMENOrdering Facility: [facility] Address: [address] [place] [address] Performed By: #### 5 7021-8 ####[facility] LABCLIA [id number] [place] [address] Basophils/100 WBC (Bld) 0.6 % Normal [facility] Comment on above: Order Comment: Speci men Type: BLOOD SPECIMENOrdering Facility: [facility] Address: [address] [place] [address] Performed By: #### 5 7021-8 ####[facility] LABCLIA [id number] [place] [address] Differential cell count method Nom (Bld) Auto Normal [facility] Comment on above: Order Comment: Speci men Type: BLOOD SPECIMENOrdering Facility: [facility] Address: [address] [place] [address] Performed By: #### 5 7021-8 ####[facility] LABCLIA [id number] [place] [address] Eosinophils (Bld) [#/Vol] 0.16 10*3/uL Normal <0.46 [facility] Comment on above: Order Comment: Speci men Type: BLOOD SPECIMENOrdering Facility: [facility] Address: [address] [place] [address] Performed By: #### 5 7021-8 ####[facility] LABCLIA [id number] [place] [address] Eosinophils/100 WBC (Bld) 1.6 % Normal [facility] Comment on above: Order Comment: Speci men Type: BLOOD SPECIMENOrdering Facility: [facility] Address: [address] [place] [address] Performed By: #### 5 7021-8 ####[facility] LABCLIA [id number] [place] [address] Erythrocyte distribution width (RBC) [Ratio] 12.4 % Normal 11.5-15.0 [facility] Comment on above: Order Comment: Speci men Type: BLOOD SPECIMENOrdering Facility: [facility] Address: [address] [place] [address] Performed By: #### 5 7021-8 ####[facility] LABCLIA [id number] [place] [address] Hematocrit (Bld) [Volume fraction] 39.6 % Normal 36.0-46.0 [facility] Comment on above: Order Comment: Speci men Type: BLOOD SPECIMENOrdering Facility: [facility] Address: [address] [place] [address] Performed By: #### 5 7021-8 ####[facility] LABCLIA [id number] [place] [address] Hemoglobin (Bld) [Mass/Vol] 13.0 g/dL Normal 11.5-15.5 [facility] Comment on above: Order Comment: Speci men Type: BLOOD SPECIMENOrdering Facility: [facility] Address: [address] [place] [address] Performed By: #### 5 7021-8 ####[facility] LABIA [id number] [place] [address] Immature granulocytes (Bld) [#/Vol] 0.03 10*3/uL Normal <0.10 [facility] Comment on above: Order Comment: Speci men Type: BLOOD SPECIMENOrdering Facility: [facility] Address: [address] [place] [address] Performed By: #### 5 7021-8 ####[facility] LABIA [id number] [place] [address] Immature granulocytes/100 WBC (Bld) 0.3 % Normal [facility] Comment on above: Order Comment: Speci men Type: BLOOD SPECIMENOrdering Facility: [facility] Address: [address] [place] [address] Performed By: #### 5 7021-8 ####[facility] LABCLIA [id number] [place] [address] Lymphocytes (Bld) [#/Vol] 1.62 10*3/uL Normal 1.00-4.00 [facility] Comment on above: Order Comment: Speci men Type: BLOOD SPECIMENOrdering Facility: [facility] Address: [address] [place] [address] Performed By: #### 5 7021-8 ####[facility] LABCLIA [id number] [place] [address] Lymphocytes/100 WBC (Bld) 16.2 % Normal [facility] Comment on above: Order Comment: Speci men Type: BLOOD SPECIMENOrdering Facility: [facility] Address: [address] [place] [address] Performed By: #### 5 7021-8 ####[facility] LABCLIA [id number] [place] [address] MCH (RBC) [Entitic mass] 30.9 pg Normal 26.0-34.0 [facility] Comment on above: Order Comment: Speci men Type: BLOOD SPECIMENOrdering Facility: [facility] Address: [address] [place] [address] Performed By: #### 5 7021-8 ####[facility] LABCLIA [id number] [place] [address] MCHC (RBC) [Mass/Vol] 32.8 g/dL Normal 30.5-36.0 [facility] Comment on above: Order Comment: Speci men Type: BLOOD SPECIMENOrdering Facility: [facility] Address: [address] [place] [address] Performed By: #### 5 7021-8 ####[facility] LABCLIA [id number] [place] [address] MCV (RBC) [Entitic vol] 94.1 fL Normal 80.0-100.0 [facility] Comment on above: Order Comment: Speci men Type: BLOOD SPECIMENOrdering Facility: [facility] Address: [address] [place] [address] Performed By: #### 5 7021-8 ####[facility] LABCLIA [id number] [place] [address] Monocytes (Bld) [#/Vol] 1.04 10*3/uL High <0.87 [facility] Comment on above: Order Comment: Speci men Type: BLOOD SPECIMENOrdering Facility: [facility] Address: [address] [place] [address] Performed By: #### 5 7021-8 ####[facility] LABCLIA [id number] [place] [address] Monocytes/100 WBC (Bld) 10.4 % Normal [facility] Comment on above: Order Comment: Speci men Type: BLOOD SPECIMENOrdering Facility: [facility] Address: [address] [place] [address] Performed By: #### 5 7021-8 ####[facility] LABCLIA [id number] [place] [address] Neutrophils (Bld) [#/Vol] 7.12 10*3/uL Normal 1.45-7.50 [facility] Comment on above: Order Comment: Speci men Type: BLOOD SPECIMENOrdering Facility: [facility] Address: [address] [place] [address] Performed By: #### 5 7021-8 ####[facility] LABCLIA [id number] [place] [address] Neutrophils/100 WBC (Bld) 70.9 % Normal [facility] Comment on above: Order Comment: Speci men Type: BLOOD SPECIMENOrdering Facility: [facility] Address: [address] [place] [address] Performed By: #### 5 7021-8 ####[facility] LABCLIA [id number] [place] [address] Nucleated RBC (Bld) [#/Vol] 10*3/uL Normal <0.01 [facility] Comment on above: Order Comment: Speci men Type: BLOOD SPECIMENOrdering Facility: [facility] Address: [address] [place] [address] Performed By: #### 5 7021-8 ####[facility] LABCLIA [id number] [place] [address] Nucleated RBC/100 WBC (Bld) [Ratio] 0.0 /100 WBC Normal [facility] Comment on above: Order Comment: Speci men Type: BLOOD SPECIMENOrdering Facility: [facility] Address: [address] [place] [address] Performed By: #### 5 7021-8 ####[facility] LABCLIA [id number] [place] [address] Platelet mean volume (Bld) [Entitic vol] 10.7 fL Normal 9.0-12.7 [facility] Comment on above: Order Comment: Speci men Type: BLOOD SPECIMENOrdering Facility: [facility] Address: [address] [place] [address] Performed By: #### 5 7021-8 ####[facility] LABCLIA [id number] [place] [address] Platelets (Bld) [#/Vol] 252 10*3/uL Normal 150-400 [facility] Comment on above: Order Comment: Speci men Type: BLOOD SPECIMENOrdering Facility: [facility] Address: [address] [place] [address] Performed By: #### 5 7021-8 ####[facility] LABCLIA [id number] [place] [address] RBC (Bld) [#/Vol] 4.21 10*6/uL Normal 3.90-5.20 [facility] Comment on above: Order Comment: Speci men Type: BLOOD SPECIMENOrdering Facility: [facility] Address: [address] [place] [address] Performed By: #### 5 7021-8 ####[facility] LABCLIA [id number] [place] [address] WBC (Bld) [#/Vol] 10.03 10*3/uL Normal 3.70-11.00 [facility] Comment on above: Order Comment: Speci men Type: BLOOD SPECIMENOrdering Facility: [facility] Address: [place] [address] Performed By: #### 5 7021-8 ####[facility] LABCLIA [id number] [place] [address] CNOVSPon 08-19-2023 CNOVSP Visit (SP) Office ([facility]) -- ANDREW BARROS ([id number]) 1945 F Date Time Provider Department 08/19/23 1:00 PM SANDEEP LENZ During your visit today, we recorded the following information about you: Temperature Pulse Respiration Blood pressure 97.7 degrees 67/minute 16/minute 148/65 Weight Height 61.8 kg 1.626 m Sandeep Lenz MD 08/20/2023 7:07 AM Signed [facility] NAME: Andrew Barros CLINIC NO.: [id number] DATE OF SERVICE: August 19, 2023 (Eduardo) [...] outer quadrant, invasive ductal carcinoma, ER postive, IA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 Mammograms at [facility] on 01/04/2021 Bi-Rads 2 benign. REVIEW OF [...] comfortably. N (more content not included)... Normal [facility] Rita 08-19-2023 CNPN Telephone ([facility]) -- ANDREW BARROS ([id number]) 1945 F Date Time Provider Department 08/19/23 CLEMENTE SRIVASTAVA HEMASA During your visit today, we recorded the following information about you: Clemente Srivastava RN 08/19/2023 2:47 PM Signed ----- Message from Sandeep Lenz MD sent at 08/19/2023 2:33 PM EST ----- Calcium janki normal. Kidney function is stable Clemente Srivastava RN 08/19/2023 2:47 PM Signed Pt aware of [employer]'s message. She denies any additional questions, needs or concerns at this time. Clemente Srivastava RN Allergies As of Date: 08/19/2023 Noted Allergy Reaction OFBVGHD-PSP-HZG REDUCTASE INHIBIT*01/21/2018 16 - Unknown Comments: Other [...] Status:Closed by CLEMENTE SRIVASTAVA on 08/19/23 Normal [facility] Calcium.ionized [Moles/Vol]o n 08-19-2023 Calcium.ionized (Bld) [Mass/Vol] 1.20 mmol/L Normal 1.08-1.30 [facility] Comment on above: Order Comment: Speci men Type: BLOOD SPECIMENOrdering Facility: [facility] Address: [address] [place] [address] Performed By: #### 1 995-0 ####[facility] LABCLIA [id number] [place] [address] [place] Calcium.ionized adjusted to pH 7.4 (Bld) [Moles/Vol] 1.19 mmol/L Normal 1.08-1.30 [facility] Comment on above: Order Comment: Sosai men Type: BLOOD SPECIMENOrdering Facility: [facility] Address: [address] [place] [address] Performed By: #### 1 995-0 ####[facility] LABCLIA [id number] COLEMANOtoniel [facility] [id number] [address] [place] Comprehensive metabolic 2000 panelon 08-19-2023 Albumin [Mass/Vol] 4.4 g/dL Normal 3.9-4.9 [facility] Comment on above: Order Comment: Speci men Type: BLOOD SPECIMENOrdering Facility: [facility] Address: [address] [place] [address] Performed By: #### 2 4323-8 ####[facility] LABCLIA [id number] [place] [address] ALP [Catalytic activity/Vol] 88 U/L Normal 34-123 [facility] Comment on above: Order Comment: Speci men Type: BLOOD SPECIMENOrdering Facility: [facility] Address: [address] [place] [address] Performed By: #### 2 4323-8 ####[facility] LABCLIA [id number] [place] [address] ALT [Catalytic activity/Vol] 8 U/L Normal 7-38 [facility] Comment on above: Order Comment: Speci men Type: BLOOD SPECIMENOrdering Facility: [facility] Address: [address] [place] [address] Performed By: #### 2 4323-8 ####[facility] LABCLIA [id number] [place] [address] Anion gap [Moles/Vol] 11 mmol/L Normal 9-18 [facility] Comment on above: Order Comment: Speci men Type: BLOOD SPECIMENOrdering Facility: [facility] Address: [address] [place] [address] Performed By: #### 2 4323-8 ####[facility] LABCLIA [id number] [place] [address] AST [Catalytic activity/Vol] 13 U/L Normal 13-35 [facility] Comment on above: Order Comment: Speci men Type: BLOOD SPECIMENOrdering Facility: [facility] Address: [address] [place] [address] Performed By: #### 2 4323-8 ####[facility] LABCLIA [id number] [place] [address] Bilirubin [Mass/Vol] 0.3 mg/dL Normal 0.2-1.3 [facility] Comment on above: Order Comment: Speci men Type: BLOOD SPECIMENOrdering Facility: [facility] Address: [address] [place] [address] Performed By: #### 2 4323-8 ####[facility] LABCLIA [id number] [place] [address] Calcium [Mass/Vol] 9.6 mg/dL Normal 8.5-10.2 [facility] Comment on above: Order Comment: Speci men Type: BLOOD SPECIMENOrdering Facility: [facility] Address: [address] [place] [address] Performed By: #### 2 4323-8 ####[facility] LABCLIA [id number] [place] [address] Chloride [Moles/Vol] 98 mmol/L Normal 97-105 [facility] Comment on above: Order Comment: Speci men Type: BLOOD SPECIMENOrdering Facility: [facility] Address: [address] [place] [address] Performed By: #### 2 4323-8 ####[facility] LABCLIA [id number] [place] [address] CO2 [Moles/Vol] 30 mmol/L Normal 22-30 [facility] Comment on above: Order Comment: Speci men Type: BLOOD SPECIMENOrdering Facility: [facility] Address: [address] [place] [address] Performed By: #### 2 4323-8 ####[facility] LABCLIA [id number] [place] [address] Creatinine [Mass/Vol] 1.27 mg/dL High 0.58-0.96 [facility] Comment on above: Order Comment: Anastacio bonilla Type: BLOOD SPECIMENOrdering Facility: [facility] Address: [place] [address] Performed By: #### 2 4323-8 ####[facility] LABCLIA [id number] [place] [address] Creatinine and Glomerular filtration rate.predicted panel (S/P/Bld) 43 mL/min/1.73m??? Low >=60 [facility] Comment on above: Order Comment: Anastacio bonilla Type: BLOOD SPECIMENOrdering Facility: [facility] Address: [address] [place] [address] Result Comment: Sugar mated Glomerular Filtration Rate [...] actual GFR. Performed By: #### 2 4323-8 ####[facility] LABCLIA [id number] [place] [address] Glucose [Mass/Vol] 94 mg/dL Normal 74-99 [facility] Comment on above: Order Comment: Anastacio bonilla Type: BLOOD SPECIMENOrdering Facility: [facility] Address: [place] [address] Result Comment: The [place] Diabetes Association (ADA) provides guidance for cutoff [...] Standards of Medical Care in Diabetes 2016, [place] [employer]. Diabetes Care. 2016.39(Suppl 1). Performed By: #### 2 4323-8 ####[facility] LABCLIA [id number] [place] [address] Potassium [Moles/Vol] 3.7 mmol/L Normal 3.7-5.1 [facility] Comment on above: Order Comment: Speci men Type: BLOOD SPECIMENOrdering Facility: [facility] Address: [address] [place] [address] Performed By: #### 2 4323-8 ####[facility] LABCLIA [id number] [place] [address] Protein [Mass/Vol] 7.3 g/dL Normal 6.3-8.0 [facility] Comment on above: Order Comment: Speci men Type: BLOOD SPECIMENOrdering Facility: [facility] Address: [address] [place] [address] Performed By: #### 2 4323-8 ####[facility] LABCLIA [id number] [place] [address] Sodium [Moles/Vol] 139 mmol/L Normal 136-144 [facility] Comment on above: Order Comment: Speci men Type: BLOOD SPECIMENOrdering Facility: [facility] Address: [address] [place] [address] Performed By: #### 2 4323-8 ####[facility] LABCLIA [id number] [place] [address] Urea nitrogen [Mass/Vol] 28 mg/dL High 7-21 [facility] Comment on above: Order Comment: Speci men Type: BLOOD SPECIMENOrdering Facility: [facility] Address: [address] [place] [address] Performed By: #### 2 4323-8 ####[facility] LABCLIA [id number] [place] [address] CBC W Auto Differential pane l (Bld)on 2023 Basophils (Bld) [#/Vol] 0.06 10*3/uL Normal <0.11 [facility] Comment on above: Order Comment: Speci men Type: BLOOD SPECIMENOrdering Facility: [facility] Address: [address] [place] [address] Performed By: #### 5 7021-8 ####[facility] LABCLIA [id number] [place] [address] Basophils/100 WBC (Bld) 0.6 % Normal [facility] Comment on above: Order Comment: Speci men Type: BLOOD SPECIMENOrdering Facility: [facility] Address: [address] [place] [address] Performed By: #### 5 7021-8 ####[facility] LABCLIA [id number] [place] [address] Differential cell count method Nom (Bld) Auto Normal [facility] Comment on above: Order Comment: Speci men Type: BLOOD SPECIMENOrdering Facility: [facility] Address: [address] [place] [address] Performed By: #### 5 7021-8 ####[facility] LABCLIA [id number] [place] [address] Eosinophils (Bld) [#/Vol] 0.14 10*3/uL Normal <0.46 [facility] Comment on above: Order Comment: Speci men Type: BLOOD SPECIMENOrdering Facility: [facility] Address: [address] [place] [address] Performed By: #### 5 7021-8 ####[facility] LABCLIA [id number] [place] [address] Eosinophils/100 WBC (Bld) 1.5 % Normal [facility] Comment on above: Order Comment: Speci men Type: BLOOD SPECIMENOrdering Facility: [facility] Address: [address] [place] [address] Performed By: #### 5 7021-8 ####[facility] LABCLIA [id number] [place] [address] Erythrocyte distribution width (RBC) [Ratio] 12.5 % Normal 11.5-15.0 [facility] Comment on above: Order Comment: Speci men Type: BLOOD SPECIMENOrdering Facility: [facility] Address: [address] [place] [address] Performed By: #### 5 7021-8 ####[facility] LABIA [id number] [place] [address] Hematocrit (Bld) [Volume fraction] 40.6 % Normal 36.0-46.0 [facility] Comment on above: Order Comment: Speci men Type: BLOOD SPECIMENOrdering Facility: [facility] Address: [address] [place] [address] Performed By: #### 5 7021-8 ####[facility] LABIA [id number] [place] [address] Hemoglobin (Bld) [Mass/Vol] 13.1 g/dL Normal 11.5-15.5 [facility] Comment on above: Order Comment: Speci men Type: BLOOD SPECIMENOrdering Facility: [facility] Address: [address] [place] [address] Performed By: #### 5 7021-8 ####[facility] LABIA [id number] [place] [address] Immature granulocytes (Bld) [#/Vol] 0.03 10*3/uL Normal <0.10 [facility] Comment on above: Order Comment: Speci men Type: BLOOD SPECIMENOrdering Facility: [facility] Address: [address] [place] [address] Performed By: #### 5 7021-8 ####[facility] LABIA [id number] [place] [address] Immature granulocytes/100 WBC (Bld) 0.3 % Normal [facility] Comment on above: Order Comment: Speci men Type: BLOOD SPECIMENOrdering Facility: [facility] Address: [address] [place] [address] Performed By: #### 5 7021-8 ####[facility] LABCLIA [id number] [place] [address] Lymphocytes (Bld) [#/Vol] 1.44 10*3/uL Normal 1.00-4.00 [facility] Comment on above: Order Comment: Speci men Type: BLOOD SPECIMENOrdering Facility: [facility] Address: [address] [place] [address] Performed By: #### 5 7021-8 ####[facility] LABCLIA [id number] [place] [address] Lymphocytes/100 WBC (Bld) 15.2 % Normal [facility] Comment on above: Order Comment: Speci men Type: BLOOD SPECIMENOrdering Facility: [facility] Address: [address] [place] [address] Performed By: #### 5 7021-8 ####[facility] LABCLIA [id number] [place] [address] MCH (RBC) [Entitic mass] 31.2 pg Normal 26.0-34.0 [facility] Comment on above: Order Comment: Speci men Type: BLOOD SPECIMENOrdering Facility: [facility] Address: [address] [place] [address] Performed By: #### 5 7021-8 ####[facility] LABCLIA [id number] [place] [address] MCHC (RBC) [Mass/Vol] 32.3 g/dL Normal 30.5-36.0 [facility] Comment on above: Order Comment: Speci men Type: BLOOD SPECIMENOrdering Facility: [facility] Address: [address] [place] [address] Performed By: #### 5 7021-8 ####[facility] LABCLIA [id number] [place] [address] MCV (RBC) [Entitic vol] 96.7 fL Normal 80.0-100.0 [facility] Comment on above: Order Comment: Speci men Type: BLOOD SPECIMENOrdering Facility: [facility] Address: [address] [place] [address] Performed By: #### 5 7021-8 ####[facility] LABCLIA [id number] [place] [address] Monocytes (Bld) [#/Vol] 0.82 10*3/uL Normal <0.87 [facility] Comment on above: Order Comment: Speci men Type: BLOOD SPECIMENOrdering Facility: [facility] Address: [address] [place] [address] Performed By: #### 5 7021-8 ####[facility] LABCLIA [id number] [place] [address] Monocytes/100 WBC (Bld) 8.7 % Normal [facility] Comment on above: Order Comment: Speci men Type: BLOOD SPECIMENOrdering Facility: [facility] Address: [address] [place] [address] Performed By: #### 5 7021-8 ####[facility] LABCLIA [id number] [place] [address] Neutrophils (Bld) [#/Vol] 6.97 10*3/uL Normal 1.45-7.50 [facility] Comment on above: Order Comment: Speci men Type: BLOOD SPECIMENOrdering Facility: [facility] Address: [address] [place] [address] Performed By: #### 5 7021-8 ####[facility] LABCLIA [id number] [place] [address] Neutrophils/100 WBC (Bld) 73.7 % Normal [facility] Comment on above: Order Comment: Speci men Type: BLOOD SPECIMENOrdering Facility: [facility] Address: [address] [place] [address] Performed By: #### 5 7021-8 ####[facility] LABCLIA [id number] [place] [address] Nucleated RBC (Bld) [#/Vol] 10*3/uL Normal <0.01 [facility] Comment on above: Order Comment: Speci men Type: BLOOD SPECIMENOrdering Facility: [facility] Address: [address] [place] [address] Performed By: #### 5 7021-8 ####[facility] LABCLIA [id number] [place] [address] Nucleated RBC/100 WBC (Bld) [Ratio] 0.0 /100 WBC Normal [facility] Comment on above: Order Comment: Speci men Type: BLOOD SPECIMENOrdering Facility: [facility] Address: [address] [place] [address] Performed By: #### 5 7021-8 ####[facility] LABCLIA [id number] [place] [address] Platelet mean volume (Bld) [Entitic vol] 11.0 fL Normal 9.0-12.7 [facility] Comment on above: Order Comment: Speci men Type: BLOOD SPECIMENOrdering Facility: [facility] Address: [address] [place] [address] Performed By: #### 5 7021-8 ####[facility]CLIA [id number] [place] [address] Platelets (Bld) [#/Vol] 238 10*3/uL Normal 150-400 [facility] Comment on above: Order Comment: Speci men Type: BLOOD SPECIMENOrdering Facility: [facility] Address: [address] [place] [address] Performed By: #### 5 7021-8 ####[facility] LABCLIA [id number] [place] [address] RBC (Bld) [#/Vol] 4.20 10*6/uL Normal 3.90-5.20 [facility] Comment on above: Order Comment: Speci men Type: BLOOD SPECIMENOrdering Facility: [facility] Address: [facility] [place] [address] Performed By: #### 5 7021-8 ####[facility]CLIA [id number] [place] [address] WBC (Bld) [#/Vol] 9.46 10*3/uL Normal 3.70-11.00 [facility] Comment on above: Order Comment: Speci men Type: BLOOD SPECIMENOrdering Facility: [facility] Address: [address] [place] [address] Performed By: #### 5 7021-8 ####[facility] LABIA [id number] [place] [address] Calcium.ionized [Moles/Vol]o n 07-02-2023 Calcium.ionized (Bld) [Mass/Vol] 1.23 mmol/L Normal 1.08-1.30 [facility] Comment on above: Order Comment: Speci men Type: BLOOD SPECIMEN Ordering Facility: [facility] Address: [address] [place] [address] Performed By: #### 1 995-0 #### [facility] [place] [id number] [address] [place] [address] [place] Calcium.ionized adjusted to pH 7.4 (Bld) [Moles/Vol] 1.20 mmol/L Normal 1.08-1.30 [facility] Comment on above: Order Comment: Speci men Type: BLOOD SPECIMEN Ordering Facility: [facility] Address: [address] [place] [address] Performed By: #### 1 995-0 #### [facility] [place] [id number] [address] [place] [address] [place] Comprehensive metabolic 2000 panelon 07-02-2023 Albumin [Mass/Vol] 4.5 g/dL Normal 3.9-4.9 [facility] Comment on above: Order Comment: Speci men Type: BLOOD SPECIMENOrdering Facility: [facility] Address: [address] [place] [address] Performed By: #### 2 4323-8 ####[facility] LABCLIA [id number] [place] [address] ALP [Catalytic activity/Vol] 89 U/L Normal 34-123 [facility] Comment on above: Order Comment: Speci men Type: BLOOD SPECIMENOrdering Facility: [facility] Address: [address] [place] [address] Performed By: #### 2 4323-8 ####[facility] LABCLIA [id number] [place] [address] ALT [Catalytic activity/Vol] 10 U/L Normal 7-38 [facility] Comment on above: Order Comment: Speci men Type: BLOOD SPECIMENOrdering Facility: [facility] Address: [address] [place] [address] Performed By: #### 2 4323-8 ####[facility]CLIA [id number] [place] [address] Anion gap [Moles/Vol] 15 mmol/L Normal 9-18 [facility] Comment on above: Order Comment: Speci men Type: BLOOD SPECIMENOrdering Facility: [facility] Address: [address] [place] [address] Performed By: #### 2 4323-8 ####[facility] LABCLIA [id number] [place] [address] AST [Catalytic activity/Vol] 14 U/L Normal 13-35 [facility] Comment on above: Order Comment: Speci men Type: BLOOD SPECIMENOrdering Facility: [facility] Address: [address] [place] [address] Performed By: #### 2 4323-8 ####[facility] LABCLIA [id number] [place] [address] Bilirubin [Mass/Vol] 0.4 mg/dL Normal 0.2-1.3 [facility] Comment on above: Order Comment: Speci men Type: BLOOD SPECIMENOrdering Facility: [facility] Address: [address] [place] [address] Performed By: #### 2 4323-8 ####[facility] LABCLIA [id number] [place] [address] Calcium [Mass/Vol] 9.9 mg/dL Normal 8.5-10.2 [facility] Comment on above: Order Comment: Speci men Type: BLOOD SPECIMENOrdering Facility: [facility] Address: [address] [place] [address] Performed By: #### 2 4323-8 ####[facility] LABCLIA [id number] [place] [address] Chloride [Moles/Vol] 99 mmol/L Normal 97-105 [facility] Comment on above: Order Comment: Speci men Type: BLOOD SPECIMENOrdering Facility: [facility] Address: [address] [place] [address] Performed By: #### 2 4323-8 ####[facility] LABCLIA [id number] [place] [address] CO2 [Moles/Vol] 28 mmol/L Normal 22-30 [facility] Comment on above: Order Comment: Speci men Type: BLOOD SPECIMENOrdering Facility: [facility] Address: [address] [place] [address] Performed By: #### 2 4323-8 ####[facility] LABCLIA [id number] [place] [address] Creatinine [Mass/Vol] 1.31 mg/dL High 0.58-0.96 [facility] Comment on above: Order Comment: Speci men Type: BLOOD SPECIMENOrdering Facility: [facility] Address: [address] [place] [address] Performed By: #### 2 4323-8 ####[facility] LABCLIA [id number] [place] [address] Creatinine and Glomerular filtration rate.predicted panel (S/P/Bld) 42 mL/min/1.73m??? Low >=60 [facility] Comment on above: Order Comment: Anastacio bonilla Type: BLOOD SPECIMENOrdering Facility: [facility] Address: [address] [place] [address] Result Comment: Sugar mated Glomerular Filtration Rate [...] actual GFR. Performed By: #### 2 4323-8 ####[facility] LABCLIA [id number] [place] [address] Glucose [Mass/Vol] 183 mg/dL High 74-99 [facility] Comment on above: Order Comment: Anastacio bonilla Type: BLOOD SPECIMENOrdering Facility: [facility] Address: [address] [place] [address] Result Comment: The [place] [employer] (ADA) provides guidance for cutoff [...] Standards of Medical Care in Diabetes 2016, [place] [employer]. Diabetes Care. 2016.39(Suppl 1). Performed By: #### 2 4323-8 ####[facility] LABCLIA [id number] [place] [address] Potassium [Moles/Vol] 3.9 mmol/L Normal 3.7-5.1 [facility] Comment on above: Order Comment: Anastacio bonilla Type: BLOOD SPECIMENOrdering Facility: [facility] Address: [address] [place] [address] Performed By: #### 2 4323-8 ####[facility] LABCLIA [id number] [place] [address] Protein [Mass/Vol] 7.2 g/dL Normal 6.3-8.0 [facility] Comment on above: Order Comment: Speci men Type: BLOOD SPECIMENOrdering Facility: [facility] Address: [address] [place] [address] Performed By: #### 2 4323-8 ####[facility] LABCLIA [id number] [place] [address] Sodium [Moles/Vol] 142 mmol/L Normal 136-144 [facility] Comment on above: Order Comment: Speci men Type: BLOOD SPECIMENOrdering Facility: [facility] Address: [address] [place] [address] Performed By: #### 2 4323-8 ####[facility] LABCLIA [id number] [place] [address] Urea nitrogen [Mass/Vol] 29 mg/dL High 7-21 [facility] Comment on above: Order Comment: Speci men Type: BLOOD SPECIMENOrdering Facility: [facility] Address: [address] [place] [address] Performed By: #### 2 4323-8 ####[facility] LABCLIA [id number] [place] [address] CBC W Auto Differential pane l (Bld)on 05-21-2023 Basophils (Bld) [#/Vol] 0.07 10*3/uL <0.11 k/uL [facility] Basophils/100 WBC (Bld) 0.6 % [facility] Differential cell count method Nom (Bld) Auto [facility] Eosinophils (Bld) [#/Vol] 0.17 10*3/uL <0.46 k/uL [facility] Eosinophils/100 WBC (Bld) 1.6 % [facility] Erythrocyte distribution width (RBC) [Ratio] 12.8 % 11.5 - 15.0 % [facility] Hematocrit (Bld) [Volume fraction] 38.7 % 36.0 - 46.0 % [facility] Hemoglobin (Bld) [Mass/Vol] 13.0 g/dL 11.5 - 15.5 g/dL [facility] Immature granulocytes (Bld) [#/Vol] 0.04 10*3/uL <0.10 k/uL [facility] Immature granulocytes/100 WBC (Bld) 0.4 % [facility] Lymphocytes (Bld) [#/Vol] 1.74 10*3/uL 1.00 - 4.00 k/uL [facility] Lymphocytes/100 WBC (Bld) 16.0 % [facility] MCH (RBC) [Entitic mass] 31.7 pg 26.0 - 34.0 pg [facility] MCHC (RBC) [Mass/Vol] 33.6 g/dL 30.5 - 36.0 g/dL [facility] MCV (RBC) [Entitic vol] 94.4 fL 80.0 - 100.0 fL [facility] Monocytes (Bld) [#/Vol] 0.94 10*3/uL High <0.87 k/uL [facility] Monocytes/100 WBC (Bld) 8.6 % [facility] Neutrophils (Bld) [#/Vol] 7.94 10*3/uL High 1.45 - 7.50 k/uL [facility] Neutrophils/100 WBC (Bld) 72.8 % [facility] Nucleated RBC (Bld) [#/Vol] <0.01 k/uL [facility] Nucleated RBC/100 WBC (Bld) [Ratio] 0.0 /100 WBC [facility] Platelet mean volume (Bld) [Entitic vol] 12.1 fL 9.0 - 12.7 fL [facility] Platelets (Bld) [#/Vol] 293 10*3/uL 150 - 400 k/uL [facility] RBC (Bld) [#/Vol] 4.10 10*6/uL 3.90 - 5.2 0 m/uL [facility] WBC (Bld) [#/Vol] 10.90 10*3/uL 3.70 - 11.00 k/uL [facility] Rita 05-21-2023 CNPN Telephone (HEMASA) -- ANDREW BARROS ([id number]) 1945 F Date Time Provider Department 05/21/23 [...] As of Date: 05/21/2023 Noted Allergy Reaction [id number] REDUCTASE INHIBIT*01/21/2018 16 - Unknown Comments: Other [...] Status:Closed by CLEMENTE SRIVASTAVA on 05/21/23 Normal [facility] Comprehensive metabolic 2000 panelon 05-21-2023 Albumin [Mass/Vol] 4.6 g/dL 3.9 - 4.9 g/dL [facility] ALP [Catalytic activity/Vol] 96 U/L 34 - 123 U/L [facility] ALT [Catalytic activity/Vol] 13 U/L 7 - 38 U/L [facility] Anion gap [Moles/Vol] 13 mmol/L 9 - 18 mmol/L [facility] AST [Catalytic activity/Vol] 18 U/L 13 - 35 U/L [facility] Bilirubin [Mass/Vol] 0.3 mg/dL 0.2 - 1 .3 mg/dL [facility] Calcium [Mass/Vol] 10.0 mg/dL 8.5 - 10. 2 mg/dL [facility] Chloride [Moles/Vol] 101 mmol/L 97 - 10 5 mmol/L [facility] CO2 [Moles/Vol] 26 mmol/L 22 - 30 mmol/L [facility] Creatinine [Mass/Vol] 1.32 mg/dL High 0.58 - 0.96 mg/dL [facility] Estimated Glomerular Filtration Rate 41 mL/min/1.73m Low >=60 mL/min/1.73 m [facility] Glucose [Mass/Vol] 119 mg/dL High 74 - 99 mg/dL [facility] Potassium [Moles/Vol] 4.1 mmol/L 3.7 - 5.1 mmol/L [facility] Protein [Mass/Vol] 7.6 g/dL 6.3 - 8.0 g/dL [facility] Sodium [Moles/Vol] 140 mmol/L 136 - 144 mmol/L [facility] Urea nitrogen [Mass/Vol] 32 mg/dL High 7 - 21 mg/dL [facility] CBC W Auto Differential pane l (Bld)on 05-20-2023 Basophils (Bld) [#/Vol] 0.07 10*3/uL Normal <0.11 [facility] Comment on above: Order Comment: Speci men Type: BLOOD SPECIMENOrdering Facility: [facility] Address: [address] [place] [address] Performed By: #### 5 7021-8 ####[facility] LABCLIA [id number] [place] [address] Basophils/100 WBC (Bld) 0.6 % Normal [facility] Comment on above: Order Comment: Speci men Type: BLOOD SPECIMENOrdering Facility: [facility] Address: [address] [place] [address] Performed By: #### 5 7021-8 ####[facility] LABCLIA [id number] [place] [address] Differential cell count method Nom (Bld) Auto Normal [facility] Comment on above: Order Comment: Speci men Type: BLOOD SPECIMENOrdering Facility: [facility] Address: [address] [place] [address] Performed By: #### 5 7021-8 ####[facility] LABCLIA [id number] [place] [address] Eosinophils (Bld) [#/Vol] 0.17 10*3/uL Normal <0.46 [facility] Comment on above: Order Comment: Speci men Type: BLOOD SPECIMENOrdering Facility: [facility] Address: [address] [address] Performed By: #### 5 7021-8 ####[facility] LABCLIA [id number] [place] [address] Eosinophils/100 WBC (Bld) 1.6 % Normal [facility] Comment on above: Order Comment: Speci men Type: BLOOD SPECIMENOrdering Facility: [facility] Address: [address] [address] Performed By: #### 5 7021-8 ####[facility] LABCLIA [id number] [place] [address] Erythrocyte distribution width (RBC) [Ratio] 12.8 % Normal 11.5-15.0 [facility] Comment on above: Order Comment: Speci men Type: BLOOD SPECIMENOrdering Facility: [facility] Address: [address] [address] Performed By: #### 5 7021-8 ####[facility] LABCLIA [id number] [place] [address] Hematocrit (Bld) [Volume fraction] 38.7 % Normal 36.0-46.0 [facility] Comment on above: Order Comment: Speci men Type: BLOOD SPECIMENOrdering Facility: [facility] Address: [address] [address] Performed By: #### 5 7021-8 ####[facility] LABCLIA [id number] [place] [address] Hemoglobin (Bld) [Mass/Vol] 13.0 g/dL Normal 11.5-15.5 [facility] Comment on above: Order Comment: Speci men Type: BLOOD SPECIMENOrdering Facility: [facility] Address: [address] [place] [address] Performed By: #### 5 7021-8 ####[facility] LABCLIA [id number] [place] [address] Immature granulocytes (Bld) [#/Vol] 0.04 10*3/uL Normal <0.10 [facility] Comment on above: Order Comment: Speci men Type: BLOOD SPECIMENOrdering Facility: [facility] Address: [address] [place] [address] Performed By: #### 5 7021-8 ####[facility] LABCLIA [id number] [place] [address] Immature granulocytes/100 WBC (Bld) 0.4 % Normal [facility] Comment on above: Order Comment: Speci men Type: BLOOD SPECIMENOrdering Facility: [facility] Address: [address] [place] [address] Performed By: #### 5 7021-8 ####[facility] LABCLIA [id number] [place] [address] Lymphocytes (Bld) [#/Vol] 1.74 10*3/uL Normal 1.00-4.00 [facility] Comment on above: Order Comment: Speci men Type: BLOOD SPECIMENOrdering Facility: [facility] Address: [address] [place] [address] Performed By: #### 5 7021-8 ####[facility] LABCLIA [id number] [place] [address] Lymphocytes/100 WBC (Bld) 16.0 % Normal [facility] Comment on above: Order Comment: Speci men Type: BLOOD SPECIMENOrdering Facility: [facility] Address: [address] [place] [address] Performed By: #### 5 7021-8 ####[facility] LABCLIA [id number] [place] [address] MCH (RBC) [Entitic mass] 31.7 pg Normal 26.0-34.0 [facility] Comment on above: Order Comment: Speci men Type: BLOOD SPECIMENOrdering Facility: [facility] Address: [address] [place] [address] Performed By: #### 5 7021-8 ####[facility] LABCLIA [id number] [place] [address] MCHC (RBC) [Mass/Vol] 33.6 g/dL Normal 30.5-36.0 [facility] Comment on above: Order Comment: Speci men Type: BLOOD SPECIMENOrdering Facility: [facility] Address: [address] [place] [address] Performed By: #### 5 7021-8 ####[facility] LABCLIA [id number] [place] [address] MCV (RBC) [Entitic vol] 94.4 fL Normal 80.0-100.0 [facility] Comment on above: Order Comment: Speci men Type: BLOOD SPECIMENOrdering Facility: [facility] Address: [address] [place] [address] Performed By: #### 5 7021-8 ####[facility] LABCLIA [id number] [place] [address] Monocytes (Bld) [#/Vol] 0.94 10*3/uL High <0.87 [facility] Comment on above: Order Comment: Speci men Type: BLOOD SPECIMENOrdering Facility: [facility] Address: [address] [place] [address] Performed By: #### 5 7021-8 ####[facility]CLIA [id number] [place] [address] Monocytes/100 WBC (Bld) 8.6 % Normal [facility] Comment on above: Order Comment: Speci men Type: BLOOD SPECIMENOrdering Facility: [facility] Address: [address] [place] [address] Performed By: #### 5 7021-8 ####[facility] LABCLIA [id number] [place] [address] Neutrophils (Bld) [#/Vol] 7.94 10*3/uL High 1.45-7.50 [facility] Comment on above: Order Comment: Speci men Type: BLOOD SPECIMENOrdering Facility: [facility] Address: [address] [place] [address] Performed By: #### 5 7021-8 ####[facility] LABCLIA [id number] [place] [address] Neutrophils/100 WBC (Bld) 72.8 % Normal [facility] Comment on above: Order Comment: Speci men Type: BLOOD SPECIMENOrdering Facility: [facility] Address: [address] [place] [address] Performed By: #### 5 7021-8 ####[facility] LABCLIA [id number] [place] [address] Nucleated RBC (Bld) [#/Vol] 10*3/uL Normal <0.01 [facility] Comment on above: Order Comment: Speci men Type: BLOOD SPECIMENOrdering Facility: [facility] Address: [address] [place] [address] Performed By: #### 5 7021-8 ####[facility] LABCLIA [id number] [place] [address] Nucleated RBC/100 WBC (Bld) [Ratio] 0.0 /100 WBC Normal [facility] Comment on above: Order Comment: Speci men Type: BLOOD SPECIMENOrdering Facility: [facility] Address: [address] [place] [address] Performed By: #### 5 7021-8 ####[facility] LABIA [id number] [place] [address] Platelet mean volume (Bld) [Entitic vol] 12.1 fL Normal 9.0-12.7 [facility] Comment on above: Order Comment: Speci men Type: BLOOD SPECIMENOrdering Facility: [facility] Address: [address] [address] Performed By: #### 5 7021-8 ####[facility] LABIA [id number] [place] [address] Platelets (Bld) [#/Vol] 293 10*3/uL Normal 150-400 [facility] Comment on above: Order Comment: Speci men Type: BLOOD SPECIMENOrdering Facility: [facility] Address: [address] [address] Performed By: #### 5 7021-8 ####[facility] LABIA [id number] [place] [address] RBC (Bld) [#/Vol] 4.10 10*6/uL Normal 3.90-5.20 [facility] Comment on above: Order Comment: Speci men Type: BLOOD SPECIMENOrdering Facility: [facility] Address: [address] [address] Performed By: #### 5 7021-8 ####[facility] LABIA [id number] [place] [address] WBC (Bld) [#/Vol] 10.90 10*3/uL Normal 3.70-11.00 [facility] Comment on above: Order Comment: Speci men Type: BLOOD SPECIMENOrdering Facility: [facility] Address: [address] [place] [address] Performed By: #### 5 7021-8 ####[facility] LABIA [id number] [place] [address] CNOVSPon 05-20-2023 CNOVSP Visit (SP) Office (Barbara SUERO) -- ANDREW BARROS ([id number]) 1945 F Date Time Provider Department 05/20/23 3:00 PM SANDEEP LENZ During your visit today, we recorded the following information about you: Temperature Pulse Respiration Blood pressure 97.8 degrees 68/minute 16/minute 168/72 Weight Height 58.9 kg 1.626 m Sandeep Lenz MD 05/30/2023 5:58 AM Signed Sult nephrology NAME: Andrew Barros CLINIC NO.: [id number] DATE OF SERVICE: May 20, 2023 (Eduardo) [...] outer quadrant, invasive ductal carcinoma, ER postive, IA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 Mammograms at [facility] on 01/04/2021 Bi-Rads 2 benign. REVIEW OF [...] wounds or petechiae. ALLERGIES: ALLERGIES Allergen Reactions Orhpnxk-Dik-Ocv Red* Unknown Other reaction(s): AOF MEDICATIONS: anastrozole [...] Take 500 (more content not included)... Normal [facility] -- ANDREW BARROS ([id number]) 1945 F Date Time Provider Department 05/20/23 SANDEEP LENZ [facility] During your visit today, we recorded the following information about you: Samina Anderson 05/20/2023 4:06 PM Signed Refer to nephrology for hypercalcemia and kidney failure Lisa/Yan: Can you please refer patient and follow up? Thanks! Jennifer Christensen 05/22/2023 8:46 AM Signed Lisa: Information ready for you. [facility] 05/30/2023 7:49 AM Signed Records faxed to Nephrology. Jennifer Aviles 06/05/2023 10:00 AM Signed Called spoke with Deepika at Nephrology office. She states she has not received this referral and has asked us to please refax it. LISA: Please refax this referral to Nephrology office. Thank You. Jennifer [facility] 06/05/2023 10:36 AM Signed Records re-faxed [...] As of Date: 05/20/2023 Noted Allergy Reaction [id number] REDUCTASE INHIBIT*01/21/2018 16 - Unknown Comments: Other reaction(s): AOF Date Reviewed: 05/20/2023 Reviewed by: Arabella Cotter MA - Fully Assessed Reason for Visit: Referral Information [0031] Cmt: Nephrology Prescriptions as of 06/10/2023 - [...] Status:Closed by SAMINA ANDERSON on 06/10/23 Normal [facility] Calcium.ionized [Moles/Vol]o n 05-20-2023 Calcium.ionized (Bld) [Mass/Vol] 1.23 mmol/L 1.08 - 1.30 mmol/L [facility] Calcium.ionized adjusted to pH 7.4 (Bld) [Moles/Vol] 1.20 mmol/L 1.08 - 1.30 mmol/L [facility] Calcium.ionized (Bld) [Mass/Vol] 1.23 mmol/L Normal 1.08-1.30 [facility] Comment on above: Order Comment: Speci men Type: BLOOD SPECIMENOrdering Facility: [facility] Address: [address] [place] [address] Performed By: #### 1 995-0 ####[facility] LABIA [id number] [address] OF [facility] Calcium.ionized adjusted to pH 7.4 (Bld) [Moles/Vol] 1.20 mmol/L Normal 1.08-1.30 [facility] Comment on above: Order Comment: Speci men Type: BLOOD SPECIMENOrdering Facility: [facility] Address: [address] [place] [address] Performed By: #### 1 995-0 ####[facility] LABCLIA [id number] [place] [address] [place] Comprehensive metabolic 2000 panelon 05-20-2023 Albumin [Mass/Vol] 4.6 g/dL Normal 3.9-4.9 [facility] Comment on above: Order Comment: Speci men Type: BLOOD SPECIMENOrdering Facility: [facility] Address: [address] [place] [address] Performed By: #### 2 4323-8 ####[facility] LABCLIA [id number] [place] [address] ALP [Catalytic activity/Vol] 96 U/L Normal 34-123 [facility] Comment on above: Order Comment: Speci men Type: BLOOD SPECIMENOrdering Facility: [facility] Address: [address] [place] [address] Performed By: #### 2 4323-8 ####[facility] LABCLIA [id number] [place] [address] ALT [Catalytic activity/Vol] 13 U/L Normal 7-38 [facility] Comment on above: Order Comment: Speci men Type: BLOOD SPECIMENOrdering Facility: [facility] Address: [address] [place] [address] Performed By: #### 2 4323-8 ####[facility] LABCLIA [id number] [place] [address] Anion gap [Moles/Vol] 13 mmol/L Normal 9-18 [facility] Comment on above: Order Comment: Speci men Type: BLOOD SPECIMENOrdering Facility: [facility] Address: [address] [address] Performed By: #### 2 4323-8 ####[facility] LABCLIA [id number] [place] [address] AST [Catalytic activity/Vol] 18 U/L Normal 13-35 [facility] Comment on above: Order Comment: Speci men Type: BLOOD SPECIMENOrdering Facility: [facility] Address: [address] [place] [address] Performed By: #### 2 4323-8 ####[facility] LABCLIA [id number] [place] [address] Bilirubin [Mass/Vol] 0.3 mg/dL Normal 0.2-1.3 [facility] Comment on above: Order Comment: Speci men Type: BLOOD SPECIMENOrdering Facility: [facility] Address: [address] [address] Performed By: #### 2 4323-8 ####[facility] LABCLIA [id number] [place] [address] Calcium [Mass/Vol] 10.0 mg/dL Normal 8.5-10.2 [facility] Comment on above: Order Comment: Speci men Type: BLOOD SPECIMENOrdering Facility: [facility] Address: [address] [place] [address] Performed By: #### 2 4323-8 ####[facility] LABCLIA [id number] [place] [address] Chloride [Moles/Vol] 101 mmol/L Normal 97-105 [facility] Comment on above: Order Comment: Speci men Type: BLOOD SPECIMENOrdering Facility: [facility] Address: [address] [place] [address] Performed By: #### 2 4323-8 ####[facility] LABCLIA [id number] [place] [address] CO2 [Moles/Vol] 26 mmol/L Normal 22-30 [facility] Comment on above: Order Comment: Speci men Type: BLOOD SPECIMENOrdering Facility: [facility] Address: [address] [place] [address] Performed By: #### 2 4323-8 ####[facility] LABCLIA [id number] [place] [address] Creatinine [Mass/Vol] 1.32 mg/dL High 0.58-0.96 [facility] Comment on above: Order Comment: Speci men Type: BLOOD SPECIMENOrdering Facility: [facility] Address: [address] [place] [address] Performed By: #### 2 4323-8 ####[facility] LABCLIA [id number] [place] [address] Creatinine and Glomerular filtration rate.predicted panel (S/P/Bld) 41 mL/min/1.73m??? Low >=60 [facility] Comment on above: Order Comment: Anastacio irene Type: BLOOD SPECIMENOrdering Facility: [facility] Address: [address] [place] [address] Result Comment: Sugar mated Glomerular Filtration Rate [...] actual GFR. Performed By: #### 2 4323-8 ####[facility] LABCLIA [id number] [place] [address] Glucose [Mass/Vol] 119 mg/dL High 74-99 [facility] Comment on above: Order Comment: Anastacio bonilla Type: BLOOD SPECIMENOrdering Facility: [facility] Address: [address] [place] [address] Result Comment: The [place] Diabetes Association (ADA) provides guidance for cutoff [...] Standards of Medical Care in Diabetes 2016, [place] [employer] Association. Diabetes Care. 2016.39(Suppl 1). Performed By: #### 2 4323-8 ####[facility] LABCLIA [id number] [place] [address] Potassium [Moles/Vol] 4.1 mmol/L Normal 3.7-5.1 [facility] Comment on above: Order Comment: Speci men Type: BLOOD SPECIMENOrdering Facility: [facility] Address: [address] [place] [address] Performed By: #### 2 4323-8 ####[facility] LABIA [id number] [place] [address] Protein [Mass/Vol] 7.6 g/dL Normal 6.3-8.0 [facility] Comment on above: Order Comment: Speci men Type: BLOOD SPECIMENOrdering Facility: [facility] Address: [address] [place] [address] Performed By: #### 2 4323-8 ####[facility] LABIA [id number] [place] [address] Sodium [Moles/Vol] 140 mmol/L Normal 136-144 [facility] Comment on above: Order Comment: Speci men Type: BLOOD SPECIMENOrdering Facility: [facility] Address: [address] [place] [address] Performed By: #### 2 4323-8 ####[facility] LABIA [id number] [place] [address] Urea nitrogen [Mass/Vol] 32 mg/dL High 7-21 [facility] Comment on above: Order Comment: Speci men Type: BLOOD SPECIMENOrdering Facility: [facility] Address: [address] [place] [address] Performed By: #### 2 4323-8 ####[facility] LABIA [id number] [place] [address] CNSWon 05-09-2023 CNSW Social Work (HEMASA) -- ANDREW BARROS ([id number]) 1945 F Date Time Provider Department 05/09/23 ALEIDA VARGAS During your visit today, we recorded the following information about you: Aleida Vargas LSW 05/09/2023 11:00 AM Signed Patient appears on the [facility] First Time Treatment List for a non-oncology treatment. No psychosocial assessment is indicated. DENIA Gupta-Pritesh Allergies As of Date: 05/09/2023 Noted Allergy Reaction [id number] REDUCTASE INHIBIT*01/21/2018 16 - Unknown Comments: Other [...] Status:Closed by ALEIDA VARGAS on 05/09/23 Normal [facility] CA 15-3 BLDon 05-01-2023 Cancer Ag 15-3 Qn 9.9 U/mL <26.0 U/mL [facility] CA 27.29 BLOODon 05-01-2023 Cancer Ag 27-29 Qn 12.5 [arb'U]/mL <38.6 U/mL [facility] CBC W Auto Differential pane l (Bld)on 05-01-2023 Basophils (Bld) [#/Vol] 0.06 10*3/uL <0.11 k/uL [facility] Basophils/100 WBC (Bld) 0.6 % [facility] Differential cell count method Nom (Bld) Auto [facility] Eosinophils (Bld) [#/Vol] 0.18 10*3/uL <0.46 k/uL [facility] Eosinophils/100 WBC (Bld) 1.9 % [facility] Erythrocyte distribution width (RBC) [Ratio] 12.7 % 11.5 - 15.0 % [facility] Hematocrit (Bld) [Volume fraction] 36.4 % 36.0 - 46.0 % [facility] Hemoglobin (Bld) [Mass/Vol] 12.2 g/dL 11.5 - 15.5 g/dL [facility] Immature granulocytes (Bld) [#/Vol] 0.03 10*3/uL <0.10 k/uL [facility] Immature granulocytes/100 WBC (Bld) 0.3 % [facility] Lymphocytes (Bld) [#/Vol] 1.62 10*3/uL 1.00 - 4.00 k/uL [facility] Lymphocytes/100 WBC (Bld) 17.3 % [facility] MCH (RBC) [Entitic mass] 32.0 pg 26.0 - 34.0 pg [facility] MCHC (RBC) [Mass/Vol] 33.5 g/dL 30.5 - 36.0 g/dL [facility] MCV (RBC) [Entitic vol] 95.5 fL 80.0 - 100.0 fL [facility] Monocytes (Bld) [#/Vol] 0.99 10*3/uL High <0.87 k/uL [facility] Monocytes/100 WBC (Bld) 10.6 % [facility] Neutrophils (Bld) [#/Vol] 6.50 10*3/uL 1.45 - 7.50 k/uL [facility] Neutrophils/100 WBC (Bld) 69.3 % [facility] Nucleated RBC (Bld) [#/Vol] <0.01 k/uL [facility] Nucleated RBC/100 WBC (Bld) [Ratio] 0.0 /100 WBC [facility] Platelet mean volume (Bld) [Entitic vol] 11.9 fL 9.0 - 12.7 fL [facility] Platelets (Bld) [#/Vol] 252 10*3/uL 150 - 400 k/uL [facility] RBC (Bld) [#/Vol] 3.81 10*6/uL Low 3.90 - 5.2 0 m/uL [facility] WBC (Bld) [#/Vol] 9.38 10*3/uL 3.70 - 11.00 k/uL [facility] Comprehensive metabolic 2000 panelon 05-01-2023 Albumin [Mass/Vol] 4.3 g/dL 3.9 - 4.9 g/dL [facility] ALP [Catalytic activity/Vol] 93 U/L 34 - 123 U/L [facility] ALT [Catalytic activity/Vol] 14 U/L 7 - 38 U/L [facility] Anion gap [Moles/Vol] 14 mmol/L 9 - 18 mmol/L [facility] AST [Catalytic activity/Vol] 18 U/L 13 - 35 U/L [facility] Bilirubin [Mass/Vol] 0.3 mg/dL 0.2 - 1 .3 mg/dL [facility] Calcium [Mass/Vol] 10.6 mg/dL High 8.5 - 10. 2 mg/dL [facility] Chloride [Moles/Vol] 98 mmol/L 97 - 10 5 mmol/L [facility] CO2 [Moles/Vol] 26 mmol/L 22 - 30 mmol/L [facility] Creatinine [Mass/Vol] 1.38 mg/dL High 0.58 - 0.96 mg/dL [facility] Estimated Glomerular Filtration Rate 39 mL/min/1.73m Low >=60 mL/min/1.73 m [facility] Glucose [Mass/Vol] 207 mg/dL High 74 - 99 mg/dL [facility] Potassium [Moles/Vol] 3.7 mmol/L 3.7 - 5.1 mmol/L [facility] Protein [Mass/Vol] 6.9 g/dL 6.3 - 8.0 g/dL [facility] Sodium [Moles/Vol] 138 mmol/L 136 - 144 mmol/L [facility] Urea nitrogen [Mass/Vol] 39 mg/dL High 7 - 21 mg/dL [facility] CBC W Auto Differential pane l (Bld)on 04-30-2023 Basophils (Bld) [#/Vol] 0.06 10*3/uL Normal <0.11 [facility] Comment on above: Order Comment: Speci men Type: BLOOD SPECIMENOrdering Facility: [facility] Address: [address] [place] [address] Performed By: #### 5 7021-8 ####[facility] LABCLIA [id number] [place] [address] Basophils/100 WBC (Bld) 0.6 % Normal [facility] Comment on above: Order Comment: Speci men Type: BLOOD SPECIMENOrdering Facility: [facility] Address: [address] [address] Performed By: #### 5 7021-8 ####[facility] LABCLIA [id number] [place] [address] Differential cell count method Nom (Bld) Auto Normal [facility] Comment on above: Order Comment: Speci men Type: BLOOD SPECIMENOrdering Facility: [facility] Address: [address] [address] Performed By: #### 5 7021-8 ####[facility] LABCLIA [id number] [place] [address] Eosinophils (Bld) [#/Vol] 0.18 10*3/uL Normal <0.46 [facility] Comment on above: Order Comment: Speci men Type: BLOOD SPECIMENOrdering Facility: [facility] Address: [address] [address] Performed By: #### 5 7021-8 ####[facility] LABCLIA [id number] [place] [address] Eosinophils/100 WBC (Bld) 1.9 % Normal [facility] Comment on above: Order Comment: Speci men Type: BLOOD SPECIMENOrdering Facility: [facility] Address: [address] [place] [address] Performed By: #### 5 7021-8 ####[facility] LABCLIA [id number] [place] [address] Erythrocyte distribution width (RBC) [Ratio] 12.7 % Normal 11.5-15.0 [facility] Comment on above: Order Comment: Speci men Type: BLOOD SPECIMENOrdering Facility: [facility] Address: [address] [place] [address] Performed By: #### 5 7021-8 ####[facility] LABCLIA [id number] [place] [address] Hematocrit (Bld) [Volume fraction] 36.4 % Normal 36.0-46.0 [facility] Comment on above: Order Comment: Speci men Type: BLOOD SPECIMENOrdering Facility: [facility] Address: [address] [place] [address] Performed By: #### 5 7021-8 ####[facility] LABCLIA [id number] [place] [address] Hemoglobin (Bld) [Mass/Vol] 12.2 g/dL Normal 11.5-15.5 [facility] Comment on above: Order Comment: Speci men Type: BLOOD SPECIMENOrdering Facility: [facility] Address: [address] [place] [address] Performed By: #### 5 7021-8 ####[facility] LABCLIA [id number] [place] [address] Immature granulocytes (Bld) [#/Vol] 0.03 10*3/uL Normal <0.10 [facility] Comment on above: Order Comment: Speci men Type: BLOOD SPECIMENOrdering Facility: [facility] Address: [address] [place] [address] Performed By: #### 5 7021-8 ####[facility] LABCLIA [id number] [place] [address] Immature granulocytes/100 WBC (Bld) 0.3 % Normal [facility] Comment on above: Order Comment: Speci men Type: BLOOD SPECIMENOrdering Facility: [facility] Address: [address] [place] [address] Performed By: #### 5 7021-8 ####[facility] LABCLIA [id number] [place] [address] Lymphocytes (Bld) [#/Vol] 1.62 10*3/uL Normal 1.00-4.00 [facility] Comment on above: Order Comment: Speci men Type: BLOOD SPECIMENOrdering Facility: [facility] Address: [address] [place] [address] Performed By: #### 5 7021-8 ####[facility] LABCLIA [id number] [place] [address] Lymphocytes/100 WBC (Bld) 17.3 % Normal [facility] Comment on above: Order Comment: Speci men Type: BLOOD SPECIMENOrdering Facility: [facility] Address: [address] [address] Performed By: #### 5 7021-8 ####[facility] LABCLIA [id number] [place] [address] MCH (RBC) [Entitic mass] 32.0 pg Normal 26.0-34.0 [facility] Comment on above: Order Comment: Speci men Type: BLOOD SPECIMENOrdering Facility: [facility] Address: [address] [place] [address] Performed By: #### 5 7021-8 ####[facility] LABCLIA [id number] [place] [address] MCHC (RBC) [Mass/Vol] 33.5 g/dL Normal 30.5-36.0 [facility] Comment on above: Order Comment: Speci men Type: BLOOD SPECIMENOrdering Facility: [facility] Address: [address] [place] [address] Performed By: #### 5 7021-8 ####[facility] LABIA [id number] [place] [address] MCV (RBC) [Entitic vol] 95.5 fL Normal 80.0-100.0 [facility] Comment on above: Order Comment: Speci men Type: BLOOD SPECIMENOrdering Facility: [facility] Address: [address] [place] [address] Performed By: #### 5 7021-8 ####[facility] LABIA [id number] [place] [address] Monocytes (Bld) [#/Vol] 0.99 10*3/uL High <0.87 [facility] Comment on above: Order Comment: Speci men Type: BLOOD SPECIMENOrdering Facility: [facility] Address: [address] [place] [address] Performed By: #### 5 7021-8 ####[facility] LABCLIA [id number] [place] [address] Monocytes/100 WBC (Bld) 10.6 % Normal [facility] Comment on above: Order Comment: Speci men Type: BLOOD SPECIMENOrdering Facility: [facility] Address: [address] [place] [address] Performed By: #### 5 7021-8 ####[facility] LABCLIA [id number] [place] [address] Neutrophils (Bld) [#/Vol] 6.50 10*3/uL Normal 1.45-7.50 [facility] Comment on above: Order Comment: Speci men Type: BLOOD SPECIMENOrdering Facility: [facility] Address: [address] [place] [address] Performed By: #### 5 7021-8 ####[facility] LABCLIA [id number] [place] [address] Neutrophils/100 WBC (Bld) 69.3 % Normal [facility] Comment on above: Order Comment: Speci men Type: BLOOD SPECIMENOrdering Facility: [facility] Address: [address] [place] [address] Performed By: #### 5 7021-8 ####[facility] LABCLIA [id number] [place] [address] Nucleated RBC (Bld) [#/Vol] 10*3/uL Normal <0.01 [facility] Comment on above: Order Comment: Speci men Type: BLOOD SPECIMENOrdering Facility: [facility] Address: [address] [place] [address] Performed By: #### 5 7021-8 ####[facility] LABCLIA [id number] [place] [address] Nucleated RBC/100 WBC (Bld) [Ratio] 0.0 /100 WBC Normal [facility] Comment on above: Order Comment: Speci men Type: BLOOD SPECIMENOrdering Facility: [facility] Address: [address] [place] [address] Performed By: #### 5 7021-8 ####[facility] LABCLIA [id number] [place] [address] Platelet mean volume (Bld) [Entitic vol] 11.9 fL Normal 9.0-12.7 [facility] Comment on above: Order Comment: Speci men Type: BLOOD SPECIMENOrdering Facility: [facility] Address: [address] [place] [address] Performed By: #### 5 7021-8 ####[facility] LABCLIA [id number] [place] [address] Platelets (Bld) [#/Vol] 252 10*3/uL Normal 150-400 [facility] Comment on above: Order Comment: Speci men Type: BLOOD SPECIMENOrdering Facility: [facility] Address: [address] [place] [address] Performed By: #### 5 7021-8 ####[facility] LABIA [id number] [place] [address] RBC (Bld) [#/Vol] 3.81 10*6/uL Low 3.90-5.20 [facility] Comment on above: Order Comment: Speci men Type: BLOOD SPECIMENOrdering Facility: [facility] Address: [address] [place] [address] Performed By: #### 5 7021-8 ####[facility] LABIA [id number] [place] [address] WBC (Bld) [#/Vol] 9.38 10*3/uL Normal 3.70-11.00 [facility] Comment on above: Order Comment: Speci men Type: BLOOD SPECIMENOrdering Facility: [facility] Address: [address] [place] [address] Performed By: #### 5 7021-8 ####[facility] LABIA [id number] [place] [address] Cancer Ag15-3 SerPl-aCncon 0 04-30-2023 Cancer Ag 15-3 Qn 9.9 U/mL Normal <26.0 [facility] Comment on above: Order Comment: Speci men Type: BLOOD SPECIMENOrdering Facility: [facility] Address: [address] [place] [address] Result Comment: The CA 15-3 test methodology used is the Electrochemiluminescence Immunoassay by [employer]. Results obtained with different methods or kits cannot be used interchangeably. Performed By: #### 6 875-9 ####[facility] LABCLIA [id number] [address] OF [facility] Cancer Ag27-29 SerPl-aCncon 04-30-2023 Cancer Ag 27-29 Qn 12.5 [arb'U]/mL Normal <38.6 [facility] Comment on above: Order Comment: Speci men Type: BLOOD SPECIMENOrdering Facility: [facility] Address: [address] [place] [address] Result Comment: The CA27.29 test was performed using the [employer] XP chemiluminometric immunoassay method. Results obtained with different assay methods or kits cannot be used interchangeably. Performed By: #### 1 7842-6 ####[facility] LABCLIA [id number] [address] OF [facility] Comprehensive metabolic 2000 panelon 04-30-2023 Albumin [Mass/Vol] 4.3 g/dL Normal 3.9-4.9 [facility] Comment on above: Order Comment: Speci men Type: BLOOD SPECIMENOrdering Facility: [facility] Address: [address] [place] [address] Performed By: #### 2 4323-8 ####[facility] LABCLIA [id number] [place] [address] ALP [Catalytic activity/Vol] 93 U/L Normal 34-123 [facility] Comment on above: Order Comment: Speci men Type: BLOOD SPECIMENOrdering Facility: [facility] Address: [address] [address] Performed By: #### 2 4323-8 ####[facility] LABCLIA [id number] [place] [address] ALT [Catalytic activity/Vol] 14 U/L Normal 7-38 [facility] Comment on above: Order Comment: Speci men Type: BLOOD SPECIMENOrdering Facility: [facility] Address: [address] [address] Performed By: #### 2 4323-8 ####[facility] LABCLIA [id number] [place] [address] Anion gap [Moles/Vol] 14 mmol/L Normal 9-18 [facility] Comment on above: Order Comment: Speci men Type: BLOOD SPECIMENOrdering Facility: [facility] Address: [address] [address] Performed By: #### 2 4323-8 ####[facility] LABCLIA [id number] [place] [address] AST [Catalytic activity/Vol] 18 U/L Normal 13-35 [facility] Comment on above: Order Comment: Speci men Type: BLOOD SPECIMENOrdering Facility: [facility] Address: [address] [address] Performed By: #### 2 4323-8 ####[facility] LABCLIA [id number] [place] [address] Bilirubin [Mass/Vol] 0.3 mg/dL Normal 0.2-1.3 [facility] Comment on above: Order Comment: Speci men Type: BLOOD SPECIMENOrdering Facility: [facility] Address: [address] [address] Performed By: #### 2 4323-8 ####[facility] LABCLIA [id number] [place] [address] Calcium [Mass/Vol] 10.6 mg/dL High 8.5-10.2 [facility] Comment on above: Order Comment: Speci men Type: BLOOD SPECIMENOrdering Facility: [facility] Address: [address] [place] [address] Performed By: #### 2 4323-8 ####[facility] LABCLIA [id number] [place] [address] Chloride [Moles/Vol] 98 mmol/L Normal 97-105 [facility] Comment on above: Order Comment: Speci men Type: BLOOD SPECIMENOrdering Facility: [facility] Address: [address] [place] [address] Performed By: #### 2 4323-8 ####[facility] LABCLIA [id number] [place] [address] CO2 [Moles/Vol] 26 mmol/L Normal 22-30 [facility] Comment on above: Order Comment: Speci men Type: BLOOD SPECIMENOrdering Facility: [facility] Address: [address] [place] [address] Performed By: #### 2 4323-8 ####[facility] LABCLIA [id number] [place] [address] Creatinine [Mass/Vol] 1.38 mg/dL High 0.58-0.96 [facility] Comment on above: Order Comment: Speci men Type: BLOOD SPECIMENOrdering Facility: [facility] Address: [address] [place] [address] Performed By: #### 2 4323-8 ####[facility] LABCLIA [id number] [place] [address] ESTIMATED GLOMERULAR FILTRATION RATE 39 mL/min/1.73m??? Low >=60 [facility] Comment on above: Order Comment: Speci men Type: BLOOD SPECIMENOrdering Facility: [facility] Address: [address] [place] [address] Result Comment: Sugar mated Glomerular Filtration Rate [...] actual GFR. Performed By: #### 2 4323-8 ####[facility] LABCLIA [id number] [place] [address] Glucose [Mass/Vol] 207 mg/dL High 74-99 [facility] Comment on above: Order Comment: Speci men Type: BLOOD SPECIMENOrdering Facility: [facility] Address: [address] [place] [address] Result Comment: The [place] Diabetes Association (ADA) provides guidance for cutoff [...] Standards of Medical Care in Diabetes 2016, [place] [employer]. Diabetes Care. 2016.39(Suppl 1). Performed By: #### 2 4323-8 ####[facility] LABCLIA [id number] [place] [address] Potassium [Moles/Vol] 3.7 mmol/L Normal 3.7-5.1 [facility] Comment on above: Order Comment: Anastacio bonilla Type: BLOOD SPECIMENOrdering Facility: [facility] Address: [address] [place] [address] Performed By: #### 2 4323-8 ####[facility] LABCLIA [id number] [place] [address] Protein [Mass/Vol] 6.9 g/dL Normal 6.3-8.0 [facility] Comment on above: Order Comment: Speci men Type: BLOOD SPECIMENOrdering Facility: [facility] Address: [address] [address] Performed By: #### 2 4323-8 ####[facility] LABCLIA [id number] [place] [address] Sodium [Moles/Vol] 138 mmol/L Normal 136-144 [facility] Comment on above: Order Comment: Speci men Type: BLOOD SPECIMENOrdering Facility: [facility] Address: [address] [place] [address] Performed By: #### 2 4323-8 ####[facility] LABCLIA [id number] [place] [address] Urea nitrogen [Mass/Vol] 39 mg/dL High 7-21 [facility] Comment on above: Order Comment: Speci men Type: BLOOD SPECIMENOrdering Facility: [facility] Address: [address] [place] [address] Performed By: #### 2 4323-8 ####[facility] LABCLIA [id number] [place] [address] PTH RELATED PEPTIDEon 2022 PTH RELATED PEPTIDE 3.9 pmol/L High 0.0-3.4 [facility] Comment on above: Order Comment: Speci men Type: BLOOD SPECIMENOrdering Facility: [facility] Address: [address] [place] [address] Result Comment: INTE RPRETIVE INFORMATION: Parathyroid Hormone-Related Peptide This test was developed and its performance characteristics determined by [facility]. It has not been cleared or approved by the [place] Food and Drug Administration. This test was performed in a CLIA certified laboratory and is intended for clinical purposes. Performed By: [facility] [address] [place] [address] Cutter Hand: Apolinar Fernandez MD, PhD CLIA Number: [id number] Performed By: #### P THPEP ####[facility] [id number] [address] [place] [id number] CBC W Auto Differential pane l (Bld)on 04-29-2023 Basophils (Bld) [#/Vol] 0.05 10*3/uL Normal <0.11 [facility] Comment on above: Order Comment: Speci men Type: BLOOD SPECIMENOrdering Facility: [facility] Address: [address] [place] [address] Performed By: #### 5 7021-8 ####[facility] LABCLIA [id number] [place] [address] Basophils/100 WBC (Bld) 0.5 % Normal [facility] Comment on above: Order Comment: Speci men Type: BLOOD SPECIMENOrdering Facility: [facility] Address: [address] [place] [address] Performed By: #### 5 7021-8 ####[facility] LABCLIA [id number] [place] [address] Differential cell count method Nom (Bld) Auto Normal [facility] Comment on above: Order Comment: Speci men Type: BLOOD SPECIMENOrdering Facility: [facility] Address: [address] [place] [address] Performed By: #### 5 7021-8 ####[facility] LABCLIA [id number] [place] [address] Eosinophils (Bld) [#/Vol] 0.17 10*3/uL Normal <0.46 [facility] Comment on above: Order Comment: Speci men Type: BLOOD SPECIMENOrdering Facility: [facility] Address: [address] [place] [address] Performed By: #### 5 7021-8 ####[facility] LABCLIA [id number] [place] [address] Eosinophils/100 WBC (Bld) 1.6 % Normal [facility] Comment on above: Order Comment: Speci men Type: BLOOD SPECIMENOrdering Facility: [facility] Address: [address] [place] [address] Performed By: #### 5 7021-8 ####[facility] LABCLIA [id number] [place] [address] Erythrocyte distribution width (RBC) [Ratio] 12.7 % Normal 11.5-15.0 [facility] Comment on above: Order Comment: Speci men Type: BLOOD SPECIMENOrdering Facility: [facility] Address: [address] [place] [address] Performed By: #### 5 7021-8 ####[facility] LABCLIA [id number] [place] [address] Hematocrit (Bld) [Volume fraction] 40.7 % Normal 36.0-46.0 [facility] Comment on above: Order Comment: Speci men Type: BLOOD SPECIMENOrdering Facility: [facility] Address: [address] [place] [address] Performed By: #### 5 7021-8 ####[facility] LABCLIA [id number] [place] [address] Hemoglobin (Bld) [Mass/Vol] 13.4 g/dL Normal 11.5-15.5 [facility] Comment on above: Order Comment: Speci men Type: BLOOD SPECIMENOrdering Facility: [facility] Address: [address] [place] [address] Performed By: #### 5 7021-8 ####[facility] LABCLIA [id number] [place] [address] Immature granulocytes (Bld) [#/Vol] 10*3/uL Normal <0.10 [facility] Comment on above: Order Comment: Speci men Type: BLOOD SPECIMENOrdering Facility: [facility] Address: [address] [place] [address] Performed By: #### 5 7021-8 ####[facility] LABIA [id number] [place] [address] Immature granulocytes/100 WBC (Bld) 0.2 % Normal [facility] Comment on above: Order Comment: Speci men Type: BLOOD SPECIMENOrdering Facility: [facility] Address: [address] [place] [address] Performed By: #### 5 7021-8 ####[facility] LABCLIA [id number] [place] [address] Lymphocytes (Bld) [#/Vol] 1.80 10*3/uL Normal 1.00-4.00 [facility] Comment on above: Order Comment: Speci men Type: BLOOD SPECIMENOrdering Facility: [facility] Address: [address] [place] [address] Performed By: #### 5 7021-8 ####[facility] LABCLIA [id number] [place] [address] Lymphocytes/100 WBC (Bld) 16.9 % Normal [facility] Comment on above: Order Comment: Speci men Type: BLOOD SPECIMENOrdering Facility: [facility] Address: [address] [place] [address] Performed By: #### 5 7021-8 ####[facility] LABIA [id number] [place] [address] MCH (RBC) [Entitic mass] 31.2 pg Normal 26.0-34.0 [facility] Comment on above: Order Comment: Speci men Type: BLOOD SPECIMENOrdering Facility: [facility] Address: [address] [place] [address] Performed By: #### 5 7021-8 ####[facility] LABCLIA [id number] [place] [address] MCHC (RBC) [Mass/Vol] 32.9 g/dL Normal 30.5-36.0 [facility] Comment on above: Order Comment: Speci men Type: BLOOD SPECIMENOrdering Facility: [facility] Address: [address] [place] [address] Performed By: #### 5 7021-8 ####[facility] LABCLIA [id number] [place] [address] MCV (RBC) [Entitic vol] 94.7 fL Normal 80.0-100.0 [facility] Comment on above: Order Comment: Speci men Type: BLOOD SPECIMENOrdering Facility: [facility] Address: [address] [place] [address] Performed By: #### 5 7021-8 ####[facility] LABCLIA [id number] [place] [address] Monocytes (Bld) [#/Vol] 0.88 10*3/uL High <0.87 [facility] Comment on above: Order Comment: Speci men Type: BLOOD SPECIMENOrdering Facility: [facility] Address: [address] [place] [address] Performed By: #### 5 7021-8 ####[facility] LABCLIA [id number] [place] [address] Monocytes/100 WBC (Bld) 8.3 % Normal [facility] Comment on above: Order Comment: Speci men Type: BLOOD SPECIMENOrdering Facility: [facility] Address: [address] [place] [address] Performed By: #### 5 7021-8 ####[facility] LABCLIA [id number] [place] [address] Neutrophils (Bld) [#/Vol] 7.74 10*3/uL High 1.45-7.50 [facility] Comment on above: Order Comment: Speci men Type: BLOOD SPECIMENOrdering Facility: [facility] Address: [address] [place] [address] Performed By: #### 5 7021-8 ####[facility] LABCLIA [id number] [place] [address] Neutrophils/100 WBC (Bld) 72.5 % Normal [facility] Comment on above: Order Comment: Speci men Type: BLOOD SPECIMENOrdering Facility: [facility] Address: [address] [address] Performed By: #### 5 7021-8 ####[facility] LABCLIA [id number] [place] [address] Nucleated RBC (Bld) [#/Vol] 10*3/uL Normal <0.01 [facility] Comment on above: Order Comment: Speci men Type: BLOOD SPECIMENOrdering Facility: [facility] Address: [address] [address] Performed By: #### 5 7021-8 ####[facility] LABCLIA [id number] [place] [address] Nucleated RBC/100 WBC (Bld) [Ratio] 0.0 /100 WBC Normal [facility] Comment on above: Order Comment: Speci men Type: BLOOD SPECIMENOrdering Facility: [facility] Address: [address] [address] Performed By: #### 5 7021-8 ####[facility] LABCLIA [id number] [place] [address] Platelet mean volume (Bld) [Entitic vol] 10.7 fL Normal 9.0-12.7 [facility] Comment on above: Order Comment: Speci men Type: BLOOD SPECIMENOrdering Facility: [facility] Address: [address] [address] Performed By: #### 5 7021-8 ####[facility] LABCLIA [id number] [place] [address] Platelets (Bld) [#/Vol] 280 10*3/uL Normal 150-400 [facility] Comment on above: Order Comment: Speci men Type: BLOOD SPECIMENOrdering Facility: [facility] Address: [address] [address] Performed By: #### 5 7021-8 ####[facility] LABCLIA [id number] [place] [address] RBC (Bld) [#/Vol] 4.30 10*6/uL Normal 3.90-5.20 [facility] Comment on above: Order Comment: Speci men Type: BLOOD SPECIMENOrdering Facility: [facility] Address: [address] [place], [place] [id number] Performed By: #### 5 7021-8 ####[facility] LABCLIA [id number] [place] [address] WBC (Bld) [#/Vol] 10.66 10*3/uL Normal 3.70-11.00 [facility] Comment on above: Order Comment: Speci men Type: BLOOD SPECIMENOrdering Facility: [facility] Address: [address] [place] [address] Performed By: #### 5 7021-8 ####[facility] LABCLIA [id number] [place] [address] CNOVSPon 04-29-2023 CNOVSP Visit (SP) Office (H EMASA) -- ANDREW BARROS ([id number]) 1945 F Date Time Provider Department 04/29/23 3:15 PM SANDEEP LENZ During your visit today, we recorded the following information about you: Temperature Pulse Respiration Blood pressure 97 degrees 66/minute 16/minute 153/66 Weight Height 58.2 kg 1.626 m Sandeep Lenz MD 05/05/2023 6:04 PM Signed NAME: Andrew Barros [facility] NO.: [id number] DATE OF SERVICE: April 29, 2023 (Eduardo) [...] outer quadrant, invasive ductal carcinoma, ER postive, IA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 Mammograms at [facility] on 01/04/2021 Bi-Rads 2 benign. REVIEW OF [...] of recurring mass. ALLERGIES: ALLERGIES Allergen Reactions Oajqcid-Gvh-Kzr Red* Unknown Other reaction(s): AOF MEDICATIONS: doxazosin (CARDURA) 4 mg tablet Take 4 mg by mouth daily at bedtime. aspirin (ASPIR-81 ORAL) Take 81 mg by mo (more content not included)... Normal [facility] Comprehensive metabolic 2000 panelon 04-29-2023 Albumin [Mass/Vol] 4.4 g/dL Normal 3.9-4.9 [facility] Comment on above: Order Comment: Speci men Type: BLOOD SPECIMENOrdering Facility: [facility] Address: [address] [place] [address] Performed By: #### 2 4323-8 ####[facility] LABCLIA [id number] [place] [address] ALP [Catalytic activity/Vol] 98 U/L Normal 34-123 [facility] Comment on above: Order Comment: Speci men Type: BLOOD SPECIMENOrdering Facility: [facility] Address: [address] [address] Performed By: #### 2 4323-8 ####[facility] LABCLIA [id number] [place] [address] ALT [Catalytic activity/Vol] 15 U/L Normal 7-38 [facility] Comment on above: Order Comment: Speci men Type: BLOOD SPECIMENOrdering Facility: [facility] Address: [address] [place] [address] Performed By: #### 2 4323-8 ####[facility] LABCLIA [id number] [place] [address] Anion gap [Moles/Vol] 15 mmol/L Normal 9-18 [facility] Comment on above: Order Comment: Speci men Type: BLOOD SPECIMENOrdering Facility: [facility] Address: [address] [address] Performed By: #### 2 4323-8 ####[facility] LABCLIA [id number] [place] [address] AST [Catalytic activity/Vol] 20 U/L Normal 13-35 [facility] Comment on above: Order Comment: Speci men Type: BLOOD SPECIMENOrdering Facility: [facility] Address: [address] [address] Performed By: #### 2 4323-8 ####[facility] LABCLIA [id number] [place] [address] Bilirubin [Mass/Vol] 0.4 mg/dL Normal 0.2-1.3 [facility] Comment on above: Order Comment: Speci men Type: BLOOD SPECIMENOrdering Facility: [facility] Address: [address] [place] [address] Performed By: #### 2 4323-8 ####[facility] LABCLIA [id number] [place] [address] Calcium [Mass/Vol] 11.1 mg/dL High 8.5-10.2 [facility] Comment on above: Order Comment: Speci men Type: BLOOD SPECIMENOrdering Facility: [facility] Address: [address] [place] [address] Performed By: #### 2 4323-8 ####[facility] LABCLIA [id number] [place] [address] Chloride [Moles/Vol] 98 mmol/L Normal 97-105 [facility] Comment on above: Order Comment: Speci men Type: BLOOD SPECIMENOrdering Facility: [facility] Address: [address] [place] [address] Performed By: #### 2 4323-8 ####[facility] LABCLIA [id number] [place] [address] CO2 [Moles/Vol] 28 mmol/L Normal 22-30 [facility] Comment on above: Order Comment: Speci men Type: BLOOD SPECIMENOrdering Facility: [facility] Address: [address] [place] [address] Performed By: #### 2 4323-8 ####[facility] LABCLIA [id number] [place] [address] Creatinine [Mass/Vol] 1.49 mg/dL High 0.58-0.96 [facility] Comment on above: Order Comment: Speci men Type: BLOOD SPECIMENOrdering Facility: [facility] Address: [address] [place] [address] Performed By: #### 2 4323-8 ####[facility] LABCLIA [id number] [place] [address] ESTIMATED GLOMERULAR FILTRATION RATE 36 mL/min/1.73m??? Low >=60 [facility] Comment on above: Order Comment: Speci men Type: BLOOD SPECIMENOrdering Facility: [facility] Address: [address] [place] [address] Result Comment: Sugar mated Glomerular Filtration Rate [...] actual GFR. Performed By: #### 2 4323-8 ####[facility] LABCLIA [id number] [place] [address] Glucose [Mass/Vol] 135 mg/dL High 74-99 [facility] Comment on above: Order Comment: Speci men Type: BLOOD SPECIMENOrdering Facility: [facility] Address: [address] [place] [address] Result Comment: The [place] Diabetes [employer] (ADA) provides guidance for cutoff [...] Standards of Medical Care in Diabetes 2016, [place] [employer]. Diabetes Care. 2016.39(Suppl 1). Performed By: #### 2 4323-8 ####[facility] LABCLIA [id number] [place] [address] Potassium [Moles/Vol] 3.9 mmol/L Normal 3.7-5.1 [facility] Comment on above: Order Comment: Speci men Type: BLOOD SPECIMENOrdering Facility: [facility] Address: [address] [place] [address] Performed By: #### 2 4323-8 ####[facility] LABCLIA [id number] [place] [address] Protein [Mass/Vol] 7.4 g/dL Normal 6.3-8.0 [facility] Comment on above: Order Comment: Speci men Type: BLOOD SPECIMENOrdering Facility: [facility] Address: [address] [place] [address] Performed By: #### 2 4323-8 ####[facility] LABCLIA [id number] [place] [address] Sodium [Moles/Vol] 141 mmol/L Normal 136-144 [facility] Comment on above: Order Comment: Speci men Type: BLOOD SPECIMENOrdering Facility: [facility] Address: [address] [place] [address] Performed By: #### 2 4323-8 ####[facility] LABCLIA [id number] [place] [address] Urea nitrogen [Mass/Vol] 38 mg/dL High 7-21 [facility] Comment on above: Order Comment: Speci men Type: BLOOD SPECIMENOrdering Facility: [facility] Address: [address] [place] [address] Performed By: #### 2 4323-8 ####[facility] LABCLIA [id number] [place] [address] Office Visiton 04-01-2023 Follow-up visit [id number] Barros,Wayne barrientosdomenica Lazara 1945 F Date Provider Department Center 04/01/2023 GISSELL WANG [facility] Family History Problem Relation Age of Onset Coronary artery disease Mother Coronary artery disease Father Coronary artery disease Sister Coronary artery disease Brother Family Status - Relation Status Age at Mother Father Sister Brother Level of Service:52134 [place] OFFICE/OUTPATIENT ESTABLISHED MOD MDM 30-39 MIN Reason for Visit and Comments: Atrial Fibrillation [80] Hypertension [036778] [facility] 36on 03-27-2023 36 Called and discussed . Thanks. [facility] Office Visiton 01-14-2023 Follow-up visit [id number] Wayne Barros A 1945 F Date Provider Department Center 01/14/2023 [id number] RODRÍGUEZ KASHIF [facility] Family History Problem Relation Age of Onset Coronary artery disease Mother Coronary artery disease Father Coronary artery disease Sister Coronary artery disease Brother Family Status - Relation Status Age at Mother Father Sister Brother Level of Service:98218 [place] OFFICE/OUTPATIENT ESTABLISHED MOD MDM 30-39 MIN Reason for Visit and Comments: Atrial Fibrillation [80] Congestive Heart Failure [127] Hypertension [190171] Valve Disorder [3372] [facility] Office Visiton 09-03-2022 Follow-up visit [id number] Wayne Barros A 1945 F Date Provider Department Center 09/03/2022 RAHEEL LEÓN KASHIF [facility] Family History Problem Relation Age of Onset Coronary artery disease Mother Coronary artery disease Father Coronary artery disease Sister Coronary artery disease Brother Family Status - Relation Status Age at Mother Father Sister Brother Level of Service:68019 [place] OFFICE/OUTPATIENT ESTABLISHED MOD MDM 30-39 MIN Reason for Visit and Comments: Hospital Follow-up [832] [facility] BNPon 08-24-2022 Natriuretic peptide B (Bld) [Mass/Vol] 1296.0 pg/mL Normal <=1,800.0 [facility] Comment on above: Performed By: #### B HYDRO GENERATION MANAGER, CMP ####[facility] Wvrpoygsfh1627 [place] [id number] Reis CBC W MANUAL DIFFon 08-24-20 22 ATYPICAL LYMPH # Normal [facility] Comment on above: Performed By: #### C BCMAN ####[facility] Jpmmgdostq0921 [place] [phone]. Swathi Reis ATYPICAL LYMPH % Normal [facility] Comment on above: Performed By: #### C BCMAN ####[facility] Oshejwmzau[address] [place] [address]Dr. Yitracy Reis BAND # 0.1 103/ul Normal 0.0-0.3 [facility] Comment on above: Performed By: #### C BCMAN ####[facility] Xcpnzaywwz4358 [place] [address]Dr. Yilan Reis BAND % 1 % Normal 0-5 [facility] Comment on above: Performed By: #### C BCMAN ####[facility] Cwsieocntr4627 [place] [address]Dr. Swathi Reis BASOM # 0.00 103/ul Normal 0.00-0.10 [facility] Comment on above: Performed By: #### C BCYUN ####[facility] Xjnglogwty[address] [place], [place] [address]Dr. Swathi Reis BASOM % 0.0 % Critically low 0.2-2.0 The [facility] Comment on above: Performed By: #### C BCYUN ####[facility] Wrqaszbkce20[address] [place] [address]Dr. Yitracy Reis BLAST # Normal [facility] Comment on above: Performed By: #### C NGA ####[facility] Mpbsfxurev2332 [place] [address]Dr. Swathi Reis BLAST % Normal [facility] Comment on above: Performed By: #### C BCYUN ####[facility] Owjmfvwkmu0507 [place] [address]Dr. Swathi Reis CORRECTED WBC Normal 4.0-11.0 [facility] Comment on above: Performed By: #### C BCMAN ####[facility] Xtvevomicr[address] [place], [place] [address]Dr. Swathi Reis EOS # 0.39 103/ul Normal 0.00-0.70 [facility] Comment on above: Performed By: #### C BCYUN ####[facility] Ltxtvmsgfp[address] [place], [place] [address]Dr. Swathi Reis EOS% 3.0 % Normal 0.9-7.0 [facility] Comment on above: Performed By: #### C NGA ####[facility] Dkseucqmup1834 [place] [phone]. Swathi Reis HCT 32.6 % Critically low 36.0-48.0 [facility] Comment on above: Performed By: #### C NGA ####[facility] Ysadxtpgjs3174 [place] [address]Dr. Swathi Reis HGB 10.6 g/dl Critically low 12.0-16.0 [facility] Comment on above: Performed By: #### C NGA ####[facility] Zolrxtshmm4912 [place] [address]Dr. Swathi Reis HYPOCHROMASIA SLIGHT Normal [facility] Comment on above: Performed By: #### C NGA ####[facility] Dkduzamzvd9381 [place] [address]Dr. Swathi Reis LYMPHM # 1.04 103/ul Critically low 1.20-3.80 The [facility] Comment on above: Performed By: #### C NGA ####[facility] Jncekjgwbz3824 [place] [address]Dr. Swathi Reis LYMPHM% 8.0 % Critically low 20.5-60.0 [facility] Comment on above: Performed By: #### C NGA ####[facility] Vyvzpmjpyg7074 [place] [address]Dr. Swathi Reis MCH 29.2 pg Normal 26.7-34.0 [facility] Comment on above: Performed By: #### C NGA ####[facility] Ifahpbghll1280 [place] [address]Dr. Swathi Reis MCHC 32.5 g/dl Normal 29.9-35.2 [facility] Comment on above: Performed By: #### C NGA ####[facility] Rpbhequvlv0088 [place] [address]Dr. Swathi Reis MCV 89.8 fL Normal 81.0-99.0 The [facility] Comment on above: Performed By: #### C NGA ####[facility] Mbqeqqqqwb2259 [place] [address]Dr. Swathi Reis METAMYELOCYTE # Normal [facility] Comment on above: Performed By: #### C NGA ####[facility] Ciwchelpcd3472 [place] [phone]. Swathi Reis METAMYELOCYTE % Normal [facility] Comment on above: Performed By: #### C NGA ####[facility] Tydhtfgkxj5766 [place] [address]Dr. Swathi Reis MONOM# 1.17 103/ul Critically high 0.30-0.80 [facility] Comment on above: Performed By: #### C NGA ####[facility] Dxxhicicyw5[address] [place], [place] [address]Dr. Swathi Reis MONOM% 9.0 % Normal 1.7-12.0 [facility] Comment on above: Performed By: #### C NGA ####[facility] Ygmqxwdzlk[address] [place], [place] [address]Dr. Swathi Chato MPV 10.0 fL Normal 9.5-13.5 [facility] Comment on above: Performed By: #### C NGA ####[facility] Ghnwanpumo[address] [place], [place] [address]Dr. Swathi Reis MYELOCYTE # Normal [facility] Comment on above: Performed By: #### C NGA ####[facility] Erjavjxwkq[address] [place], [place] [address]Dr. Swathi Reis MYELOCYTE % Normal [facility] Comment on above: Performed By: #### C NGA ####[facility] Opormizmdw[address] [place], [place] [address]Dr. Swathi Reis NRBC Normal [facility] Comment on above: Performed By: #### C NGA ####[facility] Vyxyxegufn6970 [place] [address]Dr. Swathi Reis PLT 353 103/ul Normal 150-450 [facility] Comment on above: Performed By: #### C NGA ####[facility] Smkauhcdsh4194 [place], [place] [address]Rp. Swathi Reis RBC 3.63 106/ul Critically low 4.20-5.40 [facility] Comment on above: Performed By: #### C NGA ####[facility] Dzrpvqkpji5770 [place], [place] [address]Ir. Swathi Reis RDW 13.6 % Normal 11.0-15.0 [facility] Comment on above: Performed By: #### C NGA ####[facility] Phyftjzhhc2261 [place], [place] [address]Eg. Swathi Reis SEG # 10.27 103/ul Critically high 1.40-6.50 [facility] Comment on above: Performed By: #### C NGA ####[facility] Jraqkqwelj3258 [place] [phone]. Swathi Reis SEG % 79.0 % Critically high 43.0-75.0 [facility] Comment on above: Performed By: #### C NGA ####[facility] Axlmyyqkrx6557 [place], [place] [address]Lp. Swathi Reis WBC 13.0 103/ul Critically high 4.0-11.0 [facility] Comment on above: Performed By: #### C NGA ####[facility] Qtmrtapqqg2575 [place] [phone]. Swathi Chato DIGOXINon 08-24-2022 DIG 1.8 ng/mL Normal 0.9-2.0 [facility] Comment on above: Performed By: #### D IG ####[facility] Bcrqtfcffq4213 [place] [phone]. Swathi Reis PROF 14(COMP METB)on 022 Albumin [Mass/Vol] 2.4 g/dL Critically low 3.4-5.[address] [facility] Comment on above: Performed By: #### B HYDRO GENERATION MANAGER, CMP ####[facility] Bvwtampvga9797 [place] [address]Dr. Swathi Chato Albumin/Globulin [Mass ratio] 0.5 {ratio} Normal [facility] Comment on above: Performed By: #### B HYDRO GENERATION MANAGER, CMP ####[facility] Njnoanjdiu3880 [place] [phone]. Swathi Reis ALP [Catalytic activity/Vol] 93 U/L Normal 46-116 [facility] Comment on above: Performed By: #### B HYDRO GENERATION MANAGER, CMP ####[facility] Xlosggtiix9774 [place] [phone]. Swathi Reis ALT [Catalytic activity/Vol] 8 U/L Critically low 14-59 [facility] Comment on above: Performed By: #### B HYDRO GENERATION MANAGER, CMP ####[facility] Xrnwlfstlj8335 [place] [phone]. Swathi Reis Anion gap [Moles/Vol] 11.2 mmol/L Normal [facility] Comment on above: Performed By: #### B HYDRO GENERATION MANAGER, CMP ####[facility] Jlgmvyljii[address] [place], [place] [address]Dr. Swathi Reis AST [Catalytic activity/Vol] 14 U/L Critically low 15-37 [facility] Comment on above: Performed By: #### B HYDRO GENERATION MANAGER, CMP ####[facility] Ioioqdkmhb8255 [place] [phone]. Swathi Chato Bilirubin [Mass/Vol] 0.4 mg/dL Normal 0.2-1.0 [facility] Comment on above: Performed By: #### B HYDRO GENERATION MANAGER, CMP ####[facility] Rmyzqpfcpj7468 [place] [address]Dr. Swathi Chato Calcium [Mass/Vol] 9.4 mg/dL Normal 8.5-10.1 [facility] Comment on above: Performed By: #### B HYDRO GENERATION MANAGER, CMP ####[facility] Zauxnbqhir6135 [place] [phone]. Swathi Reis Chloride [Moles/Vol] 101 mmol/L Normal 98-107 [facility] Comment on above: Performed By: #### B HYDRO GENERATION MANAGER, CMP ####[facility] Wbdxiqeauk8891 [place] [address]Dr. Swathi Reis CO2 [Moles/Vol] 31.0 mmol/L Normal 21.0-32.0 [facility] Comment on above: Performed By: #### B HYDRO GENERATION MANAGER, CMP ####[facility] Ejfoubpxod6673 [place] [address]Dr. Swathi Reis Creatinine [Mass/Vol] 1.49 mg/dL Critically high 0.55-1.02 [facility] Comment on above: Performed By: #### B HYDRO GENERATION MANAGER, CMP ####[facility] Nbpbggabkv8938 [place] [address]Dr. Swathi Reis EGFR-AF UKRAINIAN 41 mL/min/1.73m2 Critically low >=60 [facility] Comment on above: Performed By: #### B HYDRO GENERATION MANAGER, CMP ####[facility] Rgwmiucdfc[address] [place], [place] [address]Dr. Swathi Reis EGFR-NON AF UKRAINIAN 34 mL/min/1.73m2 Critically low >=60 [facility] Comment on above: Performed By: #### B HYDRO GENERATION MANAGER, CMP ####[facility] Tippzlpedq[address] [place], [place] [address]Dr. Swathi Reis Globulin (S) [Mass/Vol] 4.8 g/dL Normal [facility] Comment on above: Performed By: #### B HYDRO GENERATION MANAGER, CMP ####[facility] Woenfthumu87[address] [place], [place] [address]Dr. Swathi Reis Glucose [Mass/Vol] 153 mg/dL Critically high 74-106 T [facility] Comment on above: Performed By: #### B HYDRO GENERATION MANAGER, CMP ####[facility] Iylirsmqav840[address] [place], [place] [address]Dr. Swathi Reis Potassium [Moles/Vol] 4.2 mmol/L Normal 3.5-5.1 [facility] Comment on above: Performed By: #### B HYDRO GENERATION MANAGER, CMP ####[facility] Qboharpkkt[address] [place], [place] [address]Dr. Swathi Reis Protein [Mass/Vol] 7.2 g/dL Normal 6.4-8.2 [facility] Comment on above: Performed By: #### B HYDRO GENERATION MANAGER, CMP ####[facility] Ctnqokgmwo9[address] [place], [place] [address]Dr. Swathi Reis Sodium [Moles/Vol] 139 mmol/L Normal 136-145 [facility] Comment on above: Performed By: #### B HYDRO GENERATION MANAGER, CMP ####[facility] Keddjyeaxj120[address] [place], [place] [address]Dr. Swathi Reis Urea nitrogen [Mass/Vol] 22.0 mg/dL Critically high 7.0-18.0 [facility] Comment on above: Performed By: #### B HYDRO GENERATION MANAGER, CMP ####[facility] Cwmbhsqaok[address] [place], [place] [address]Dr. Swathi Reis Urea nitrogen/Creatinine [Mass ratio] 14.8 mg/mg Normal [facility] Comment on above: Performed By: #### B HYDRO GENERATION MANAGER, CMP ####[facility] Likcbzmpra9[address] [place], [place] [address]Dr. Swathi Reis BNPon 08-23-2022 Natriuretic peptide B (Bld) [Mass/Vol] 1755.0 pg/mL Normal <=1,800.0 [facility] Comment on above: Performed By: #### B HYDRO GENERATION MANAGER, CMP ####[facility] Ploltpvhho[address] [place], [place] [address]Dr. Swathi Reis CBC AUTO DIFFon 08-23-2022 BASO # 0.1 103/ul Normal 0.0-0.1 [facility] Comment on above: Performed By: #### C BC ####[facility] Xenffxhpzr9969[address] [place], [place] [address]Dr. Swathi Chato Basophils/100 WBC (Bld) 0.7 % Normal 0.2-2.0 [facility] Comment on above: Performed By: #### C BC ####[facility] Vqrntcwcvs99[address] [place], [place] [address]Dr. Swathi Chato EO # 0.2 103/ul Normal 0.0-0.7 [facility] Comment on above: Performed By: #### C BC ####[facility] Ijrinnkerc5[address] [place], [place] [address]Dr. Swathi Chato Eosinophils/100 WBC (Bld) 2.2 % Normal 0.9-7.0 [facility] Comment on above: Performed By: #### C BC ####[facility] Mjvugjcsso4986 [place] [address]Dr. Swathi Reis Erythrocyte distribution width (RBC) [Ratio] 13.6 % Normal 11.0-15.0 [facility] Comment on above: Performed By: #### C BC ####[facility] Wvijnmpovk1062 [place] [address]Dr. Swathi Reis Hematocrit (Bld) [Volume fraction] 33.1 % Critically low 36.0-48.0 [facility] Comment on above: Performed By: #### C BC ####[facility] Miwkpwnnbe[address] [place], [place] [address]Dr. Swathi Reis Hemoglobin (Bld) [Mass/Vol] 10.6 g/dL Critically low 12.0-16.0 [facility] Comment on above: Performed By: #### C BC ####[facility] Vdyedbcazj[address] [place], [place] [address]Dr. Swathi Reis IG # 0.12 10e3/ul Critically high 0.00-0.03 [facility] Comment on above: Performed By: #### C BC ####[facility] Mboypdaeiv8039[address] [place], [place] [address]Dr. Swathi Reis IG % 1.1 % Critically high 0.0-0.5 [facility] Comment on above: Performed By: #### C BC ####[facility] Nkkuiznaim635[address] [place], [place] [address]Dr. Swathi Reis LYMPH # 1.6 103/ul Normal 1.2-3.8 [facility] Comment on above: Performed By: #### C BC ####[facility] Asemgszdxt8129[address] [place], [place] [address]Dr. Swathi Reis Lymphocytes/100 WBC (Bld) 14.6 % Critically low 20.5-60.0 [facility] Comment on above: Performed By: #### C BC ####[facility] Jgwmdofitc90[address] [place], [place] [address]Dr. Swathi Reis MANUAL DIFF REQ NO Normal [facility] Comment on above: Performed By: #### C BC ####[facility] Ftaibuvfbb8863 [place] [phone]. Swathi Reis MCH (RBC) [Entitic mass] 29.0 pg Normal 26.7-34.0 [facility] Comment on above: Performed By: #### C BC ####[facility] Ltooybhhht5280 [place] [phone]. Swathi Reis MCHC (RBC) [Mass/Vol] 32.0 g/dL Normal 29.9-35.2 [facility] Comment on above: Performed By: #### C BC ####[facility] Lfmbkgwmnu4658 [place] [address]Dr. Swathi Chato MCV (RBC) [Entitic vol] 90.4 fL Normal 81.0-99.0 [facility] Comment on above: Performed By: #### C BC ####[facility] Fbvfkmoikf[address] [place], [place] [address]DrOtto Wylietracy Chato MONO # 1.4 103/ul Critically high 0.3-0.8 [facility] Comment on above: Performed By: #### C BC ####[facility] Qhqplmsteq7[address] [place], [place] [address]DrOtto Swathi Chato Monocytes/100 WBC (Bld) 12.8 % Critically high 1.7-12.0 [facility] Comment on above: Performed By: #### C BC ####[facility] Lcxhpjrusd[address] [place], [place] [address]DrOtto Swathi Reis NEUT # 7.5 103/ul Critically high 1.4-6.5 [facility] Comment on above: Performed By: #### C BC ####[facility] Hfbmuxgyyp[address] [place], [place] [address]DrOtto Swathi Chato Neutrophils/100 WBC (Bld) 68.6 % Normal 43.0-75.0 [facility] Comment on above: Performed By: #### C BC ####[facility] Hqvmywfdef[address] [place], [place] [address]DrOtto Inessatracy Reis Platelet mean volume (Bld) [Entitic vol] 10.3 fL Normal 9.5-13.5 [facility] Comment on above: Performed By: #### C BC ####[facility] Wgxngssoij7953 [place] [phone]. Swathi Reis PLT 387 103/ul Normal 150-450 [facility] Comment on above: Performed By: #### C BC ####[facility] Wpspmznaqz9783 [place] [address]Dr. Swathi Reis RBC 3.66 106/ul Critically low 4.20-5.40 [facility] Comment on above: Performed By: #### C BC ####[facility] Mkpgpjuorq4425 [place] [address]Dr. Swathi Reis WBC 11.0 103/ul Normal 4.0-11.0 [facility] Comment on above: Performed By: #### C BC ####[facility] Dqnjetkoqr3859 [place] [phone]. Swathi Chato DIGOXINon 08-23-2022 DIG 1.6 ng/mL Normal 0.9-2.0 [facility] Comment on above: Performed By: #### D IG ####[facility] Yugtcoiqpb1462 [place] [phone]. Swathi eRis POINT OF CARE GLUCOSEon Glucose [Mass/Vol] 167 mg/dL Critically high 74-106 [facility] Comment on above: Performed By: #### P OCGLUC ####[facility] Xyuzgtksvo1385 [place] [address]Dr. Swathi Chato Glucose [Mass/Vol] 114 mg/dL Critically high 74-106 [facility] Comment on above: Performed By: #### P OCGLUC ####[facility] Hpkkojndus3358 [place] [address]Dr. Swathi Chato Glucose [Mass/Vol] 272 mg/dL Critically high 74-106 [facility] Comment on above: Performed By: #### P OCGLUC ####[facility] Owyvskoyod0447 [place] [address]DrOtto Reis PROF 14(COMP METB)on 022 Albumin [Mass/Vol] 2.4 g/dL Critically low 3.4-5.[address] [facility] Comment on above: Performed By: #### B HYDRO GENERATION MANAGER, CMP ####[facility] Mskxzpgzmo7758 [place] [address]Dr. Swathi Reis Albumin/Globulin [Mass ratio] 0.5 {ratio} Normal [facility] Comment on above: Performed By: #### B HYDRO GENERATION MANAGER, CMP ####[facility] Dveluotgah7303 [place] [address]Dr. Swathi Reis ALP [Catalytic activity/Vol] 104 U/L Normal 46-116 [facility] Comment on above: Performed By: #### B HYDRO GENERATION MANAGER, CMP ####[facility] Qjjcaitvjt5466 [place] [address]Dr. Swathi Reis ALT [Catalytic activity/Vol] 7 U/L Critically low 14-59 [facility] Comment on above: Performed By: #### B HYDRO GENERATION MANAGER, CMP ####[facility] Pgdcjayahr3548 [place] [address]Dr. Swathi Reis Anion gap [Moles/Vol] 11.1 mmol/L Normal [facility] Comment on above: Performed By: #### B HYDRO GENERATION MANAGER, CMP ####[facility] Iitrybdtkn[address] [place], [place] [address]Dr. Swathi Reis AST [Catalytic activity/Vol] 19 U/L Normal 15-37 [facility] Comment on above: Performed By: #### B HYDRO GENERATION MANAGER, CMP ####[facility] Zyqpadtuww7102 [place] [address]Dr. Swathi Reis Bilirubin [Mass/Vol] 0.4 mg/dL Normal 0.2-1.0 [facility] Comment on above: Performed By: #### B HYDRO GENERATION MANAGER, CMP ####[facility] Vzisddcfnk[address] [place], [place] [address]Dr. Swathi Reis Calcium [Mass/Vol] 9.5 mg/dL Normal 8.5-10.1 [facility] Comment on above: Performed By: #### B HYDRO GENERATION MANAGER, CMP ####[facility] Embagusjft[address] [place], [place] [address]Dr. Swathi Reis Chloride [Moles/Vol] 101 mmol/L Normal 98-107 [facility] Comment on above: Performed By: #### B HYDRO GENERATION MANAGER, CMP ####[facility] Hcezebtlqy030[address] [place], [place] [address]Dr. Swathi Reis CO2 [Moles/Vol] 30.7 mmol/L Normal 21.0-32.0 [facility] Comment on above: Performed By: #### B HYDRO GENERATION MANAGER, CMP ####[facility] Nydtuhdhwe[address] [place], [place] [address]Dr. Swathi Reis Creatinine [Mass/Vol] 1.53 mg/dL Critically high 0.55-1.02 [facility] Comment on above: Performed By: #### B HYDRO GENERATION MANAGER, CMP ####[facility] Fvhykdjumd0[address] [place], [place] [address]Dr. Swathi Reis EGFR-AF UKRAINIAN 40 mL/min/1.73m2 Critically low >=60 [facility] Comment on above: Performed By: #### B HYDRO GENERATION MANAGER, CMP ####[facility] Egmjocszoe[address] [place], [place] [address]Dr. Swathi Reis EGFR-NON AF UKRAINIAN 33 mL/min/1.73m2 Critically low >=60 [facility] Comment on above: Performed By: #### B HYDRO GENERATION MANAGER, CMP ####[facility] Zufafbsjxi47[address] [place], [place] [address]Dr. Swathi Reis Globulin (S) [Mass/Vol] 4.9 g/dL Normal [facility] Comment on above: Performed By: #### B HYDRO GENERATION MANAGER, CMP ####[facility] Tyzyjyjlzx486[address] [place], [place] [address]Dr. Swathi Reis Glucose [Mass/Vol] 139 mg/dL Critically high 74-106 [facility] Comment on above: Performed By: #### B HYDRO GENERATION MANAGER, CMP ####[facility] Ueuzhpevfr[address] [place], [place] [address]Dr. Swathi Reis Potassium [Moles/Vol] 3.8 mmol/L Normal 3.5-5.1 [facility] Comment on above: Performed By: #### B HYDRO GENERATION MANAGER, CMP ####[facility] Kxynutvhaz[address] [place], [place] [address]Dr. Swathi Reis Protein [Mass/Vol] 7.3 g/dL Normal 6.4-8.2 [facility] Comment on above: Performed By: #### B HYDRO GENERATION MANAGER, CMP ####[facility] Tpibchmyex[address] [place], [place] [address]Dr. Swathi Reis Sodium [Moles/Vol] 139 mmol/L Normal 136-145 [facility] Comment on above: Performed By: #### B HYDRO GENERATION MANAGER, CMP ####[facility] Qjtwxcjlxp[address] [place], [place] [address]Dr. Swathi Chato Urea nitrogen [Mass/Vol] 26.0 mg/dL Critically high 7.0-18.0 [facility] Comment on above: Performed By: #### B HYDRO GENERATION MANAGER, CMP ####[facility] Fqohizwmoa[address] [place], [place] [address]Dr. Inessatracy Reis Urea nitrogen/Creatinine [Mass ratio] 17.0 mg/mg Normal [facility] Comment on above: Performed By: #### B HYDRO GENERATION MANAGER, CMP ####[facility] Qmunakbarg189[address] [place], [place] [address]Dr. Swathi Chato BNPon 08-22-2022 Natriuretic peptide B (Bld) [Mass/Vol] 3439.0 pg/mL Critically high <=1,800.0 [facility] Comment on above: Performed By: #### C MP, BNP ####[facility] Jeipryidnh4867[address] [place], [place] [address]Dr. Swathi Chato CBC AUTO DIFFon 08-22-2022 BASO # 0.1 103/ul Normal 0.0-0.1 [facility] Comment on above: Performed By: #### C BC ####[facility] Iigqprtfrv127[address] [place], [place] [address]Dr. Swathi Chato Basophils/100 WBC (Bld) 0.6 % Normal 0.2-2.0 [facility] Comment on above: Performed By: #### C BC ####[facility] Jpfqhrldcg93[address] [place], [place] [address]Dr. Swathi Reis EO # 0.3 103/ul Normal 0.0-0.7 [facility] Comment on above: Performed By: #### C BC ####[facility] [address] [place] [address]Dr. Swathi Reis Eosinophils/100 WBC (Bld) 2.1 % Normal 0.9-7.0 [facility] Comment on above: Performed By: #### C BC ####[facility] Plnffibngp3234[address] [place], [place] [address]Dr. Swathi Reis Erythrocyte distribution width (RBC) [Ratio] 13.8 % Normal 11.0-15.0 [facility] Comment on above: Performed By: #### C BC ####[facility] Pxjcbcxchg[address] [place], [place] [address]Dr. Swathi Reis Hematocrit (Bld) [Volume fraction] 31.9 % Critically low 36.0-48.0 [facility] Comment on above: Performed By: #### C BC ####[facility] Nzpvxnaoja7[address] [place], [place] [address]Dr. Swathi Reis Hemoglobin (Bld) [Mass/Vol] 10.2 g/dL Critically low 12.0-16.0 [facility] Comment on above: Performed By: #### C BC ####[facility] Yvoyocqzog18[address] [place], [place] [address]Dr. Swathi Reis IG # 0.10 10e3/ul Critically high 0.00-0.03 [facility] Comment on above: Performed By: #### C BC ####[facility] Rojpotvyqz736[address] [place], [place] [address]Dr. Swathi Reis IG % 0.8 % Critically high 0.0-0.5 [facility] Comment on above: Performed By: #### C BC ####[facility] Migonhrfer8067[address] [place], [place] [address]Dr. Swathi Reis LYMPH # 1.2 103/ul Normal 1.2-3.8 [facility] Comment on above: Performed By: #### C BC ####[facility] Iasppriwtx364[address] [place], [place] [address]Dr. Swathi Reis Lymphocytes/100 WBC (Bld) 9.6 % Critically low 20.5-60.0 [facility] Comment on above: Performed By: #### C BC ####[facility] [address] [place] [address]DrOtto Reis MANUAL DIFF REQ NO Normal [facility] Comment on above: Performed By: #### C BC ####[facility] Wwrghrtocd[address] [place] [address]Dr. Swathi Reis MCH (RBC) [Entitic mass] 28.7 pg Normal 26.7-34.0 [facility] Comment on above: Performed By: #### C BC ####[facility] Kpdovwixxi8277[address] [place], [place] [address]Dr. Swathi Reis MCHC (RBC) [Mass/Vol] 32.0 g/dL Normal 29.9-35.2 [facility] Comment on above: Performed By: #### C BC ####[facility] Opkznvgnuv4023[address] [place], [place] [address]DrOtto Reis MCV (RBC) [Entitic vol] 89.9 fL Normal 81.0-99.0 [facility] Comment on above: Performed By: #### C BC ####[facility] Oikkqzzfgf8127[address] [place], [place] [address]Dr. Swathi Reis MONO # 1.0 103/ul Critically high 0.3-0.8 [facility] Comment on above: Performed By: #### C BC ####[facility] Qiwdxbqilr304[address] [place], [place] [address]DrOtto Reis Monocytes/100 WBC (Bld) 8.5 % Normal 1.7-12.0 [facility] Comment on above: Performed By: #### C BC ####[facility] Ipksjpckkv8801[address] [place], [place] [address]DrOtto Reis NEUT # 9.6 103/ul Critically high 1.4-6.5 [facility] Comment on above: Performed By: #### C BC ####[facility] Tahazalhmg377[address] [place], [place] [address]Dr. Swathi Reis Neutrophils/100 WBC (Bld) 78.4 % Critically high 43.0-75.0 [facility] Comment on above: Performed By: #### C BC ####[facility] [address]slwagnt[address] [place] [address]Dr. Swathi Reis Platelet mean volume (Bld) [Entitic vol] 10.4 fL Normal 9.5-13.5 [facility] Comment on above: Performed By: #### C BC ####[facility] [address]jvsrxjc[address] [place] [address]Dr. Swathi Reis PLT 338 103/ul Normal 150-450 [facility] Comment on above: Performed By: #### C BC ####[facility] Otibcfgusn[address] [place] [address]Dr. Swathi Reis RBC 3.55 106/ul Critically low 4.20-5.40 [facility] Comment on above: Performed By: #### C BC ####[facility] Lnwkgcyhce730[address] [place], [place] [address]Dr. Swathi Reis WBC 12.2 103/ul Critically high 4.0-11.0 [facility] Comment on above: Performed By: #### C BC ####[facility] Jpartylfls050[address] [place], [place] [address]Dr. Swathi Reis DIGOXINon 08-22-2021 DIG 1.5 ng/mL Normal 0.9-2.0 [facility] Comment on above: Performed By: #### D IG ####[facility] Meetokwicb9225[address] [place], [place] [address]Dr. Swathi Reis POINT OF CARE GLUCOSEon 07-26-2021 Glucose [Mass/Vol] 222 mg/dL Critically high 74-106 [facility] Comment on above: Performed By: #### P OCGLUC ####[facility] Chwregdzfa693[address] [place], [place] [address]Dr. Swathi Reis Glucose [Mass/Vol] 133 mg/dL Critically high 74-106 [facility] Comment on above: Performed By: #### P OCGLUC ####[facility] Dfroidwwfh[address] [place] [address]Dr. Swathi Reis Glucose [Mass/Vol] 299 mg/dL Critically high 74-106 [facility] Comment on above: Performed By: #### P OCGLUC ####[facility] Xvcurkllas[address] [place], [place] [address]Dr. Swathi Reis Glucose [Mass/Vol] 151 mg/dL Critically high 74-106 [facility] Comment on above: Performed By: #### P OCGLUC ####[facility] Rashpcbzma007[address] [place], [place] [address]Dr. Swathi Reis PROF 14(COMP METB)on 022 Albumin [Mass/Vol] 2.4 g/dL Critically low 3.4-5.[address] [facility] Comment on above: Performed By: #### C MP, BNP ####[facility] Avjbulhdgb8390[address] [place], [place] [address]Dr. Swathi Reis Albumin/Globulin [Mass ratio] 0.6 {ratio} Normal [facility] Comment on above: Performed By: #### C MP, BNP ####[facility] Zuutopqrvl8[address] [place], [place] [address]Dr. Swathi Reis ALP [Catalytic activity/Vol] 98 U/L Normal 46-116 [facility] Comment on above: Performed By: #### C MP, BNP ####[facility] Tvrsrpmebt3825[address] [place], [place] [address]Dr. Swathi Reis ALT [Catalytic activity/Vol] 13 U/L Critically low 14-59 [facility] Comment on above: Performed By: #### C MP, BNP ####[facility] Ykmllkrpgd003[address] [place], [place] [address]Dr. Swathi Reis Anion gap [Moles/Vol] 12.4 mmol/L Normal [facility] Comment on above: Performed By: #### C MP, BNP ####[facility] Xvvmkxntsl5225[address] [place], [place] [address]Dr. Swathi Reis AST [Catalytic activity/Vol] 23 U/L Normal 15-37 [facility] Comment on above: Performed By: #### C MP, BNP ####[facility] [address]koc[address] [place] [address]Dr. Swathi Reis Bilirubin [Mass/Vol] 0.6 mg/dL Normal 0.2-1.0 [facility] Comment on above: Performed By: #### C MP, BNP ####[facility] Ltxsbdnmuj8701[address] [place], [place] [address]Dr. Swathi Reis Calcium [Mass/Vol] 8.9 mg/dL Normal 8.5-10.1 [facility] Comment on above: Performed By: #### C MP, BNP ####[facility] Nricrhijxk022[address] [place], [place] [address]Dr. Swathi Reis Chloride [Moles/Vol] 100 mmol/L Normal 98-107 [facility] Comment on above: Performed By: #### C MP, BNP ####[facility] Amicffcbhg8549[address] [place], [place] [address]Dr. Swathi Reis CO2 [Moles/Vol] 30.6 mmol/L Normal 21.0-32.0 [facility] Comment on above: Performed By: #### C MP, BNP ####[facility] Llqwslecdp4337[address] [place], [place] [address]Dr. Swathi Reis Creatinine [Mass/Vol] 1.54 mg/dL Critically high 0.55-1.02 [facility] Comment on above: Performed By: #### C MP, BNP ####[facility] Vblzkxeqpp1939[address] [place], [place] [address]Dr. Swathi Reis EGFR-AF UKRAINIAN 40 mL/min/1.73m2 Critically low >=60 [facility] Comment on above: Performed By: #### C MP, BNP ####[facility] Rdgzryaeog0364[address] [place], [place] [address]Dr. Swathi Reis EGFR-NON AF UKRAINIAN 33 mL/min/1.73m2 Critically low >=60 [facility] Comment on above: Performed By: #### C MP, BNP ####[facility] Rxyqrrcbne9039[address] [place], [place] [address]Dr. Swathi Reis Globulin (S) [Mass/Vol] 3.9 g/dL Normal [facility] Comment on above: Performed By: #### C MP, BNP ####[facility] W[address]tgwgypr4[address] [place] [address]Dr. Swathi Reis Glucose [Mass/Vol] 143 mg/dL Critically high 74-106 [facility] Comment on above: Performed By: #### C MP, BNP ####[facility] Zucobeqgut[address] [place] [address]Dr. Swathi Reis Potassium [Moles/Vol] 4.0 mmol/L Normal 3.5-5.1 [facility] Comment on above: Performed By: #### C MP, BNP ####[facility] Omxhuvjtnq[address] [place] [address]Dr. Swathi Reis Protein [Mass/Vol] 6.3 g/dL Critically low 6.4-8.[address] [facility] Comment on above: Performed By: #### C MP, BNP ####[facility] Zpplyipqya188[address] [place], [place] [address]Dr. Swathi Reis Sodium [Moles/Vol] 139 mmol/L Normal 136-145 [facility] Comment on above: Performed By: #### C MP, BNP ####[facility] Japwsyvgbd305[address] [place], [place] [address]Dr. Swathi Reis Urea nitrogen [Mass/Vol] 27.0 mg/dL Critically high 7.0-18.0 [facility] Comment on above: Performed By: #### C MP, BNP ####[facility] Uiumfaqkan7860[address] [place], [place] [address]Dr. Swathi Reis Urea nitrogen/Creatinine [Mass ratio] 17.5 mg/mg Normal [facility] Comment on above: Performed By: #### C MP, BNP ####[facility] [address]zblh[address] [place] [address]Dr. Swathi Reis VANCOMYCIN TROUGHon 30-20 22 VANCOMYCIN TROUGH 13.2 ug/ml Normal 5.0-20.0 [facility] Comment on above: Performed By: #### V ANCT ####[facility] Ywqgsgkrqm811[address] [place], [place] [address]Dr. Swathi Reis XR CHEST 2 Von 11-30-2022 XR CHEST 2 V Normal [facility] BNPon 08-21-2022 Natriuretic peptide B (Bld) [Mass/Vol] 3683.0 pg/mL Critically high <=1,800.0 [facility] Comment on above: Performed By: #### C MP, BNP ####[facility] Rkuskapybe[address] [place], [place] [address]DrOtto Reis CBC AUTO DIFFon 08-21-2022 BASO # 0.1 103/ul Normal 0.0-0.1 [facility] Comment on above: Performed By: #### C BC ####[facility] Suikwjfkra[address] [place], [place] [address]DrOtto Reis Basophils/100 WBC (Bld) 0.4 % Normal 0.2-2.0 [facility] Comment on above: Performed By: #### C BC ####[facility] Iwkeuonwym[address] [place], [place] [address]DrOtto Reis EO # 0.2 103/ul Normal 0.0-0.7 [facility] Comment on above: Performed By: #### C BC ####[facility] Tnjwrliuzv[address] [place], [place] [address]Dr. Swathi Reis Eosinophils/100 WBC (Bld) 1.8 % Normal 0.9-7.0 [facility] Comment on above: Performed By: #### C BC ####[facility] Snyijoqnze[address] [place], [place] [address]DrOtto Reis Erythrocyte distribution width (RBC) [Ratio] 14.4 % Normal 11.0-15.0 [facility] Comment on above: Performed By: #### C BC ####[facility] Jqimrzacmf[address] [place], [place] [address]DrOtto Reis Hematocrit (Bld) [Volume fraction] 33.5 % Critically low 36.0-48.0 [facility] Comment on above: Performed By: #### C BC ####[facility] Raqfbxfcmm[address] [place], [place] [address]DrOtto Reis Hemoglobin (Bld) [Mass/Vol] 10.8 g/dL Critically low 12.0-16.0 [facility] Comment on above: Performed By: #### C BC ####[facility] Zcptafvtzz5[address] [place] [address]DrOtto Reis IG # 0.06 10e3/ul Critically high 0.00-0.03 [facility] Comment on above: Performed By: #### C BC ####[facility] F[address]khntrftp[address] [place] [address]DrOtto Reis IG % 0.5 % Normal 0.0-0.5 [facility] Comment on above: Performed By: #### C BC ####[facility] Fjhlipywod[address] [place] [address]DrOtto Reis LYMPH # 0.9 103/ul Critically low 1.2-3.8 [facility] Comment on above: Performed By: #### C BC ####[facility] Pncbtqeepu[address] [place] [address]DrOtto Reis Lymphocytes/100 WBC (Bld) 7.2 % Critically low 20.5-60.0 [facility] Comment on above: Performed By: #### C BC ####[facility] Afkdzxqubp4[address] [place] [address]DrOtto Reis MANUAL DIFF REQ NO Normal [facility] Comment on above: Performed By: #### C BC ####[facility] Qymfvzymln8929 [place] [address]DrOtto Reis MCH (RBC) [Entitic mass] 29.0 pg Normal 26.7-34.0 [facility] Comment on above: Performed By: #### C BC ####[facility] Gqlcyqhjpz6[address] [place] [address]DrOtto Reis MCHC (RBC) [Mass/Vol] 32.2 g/dL Normal 29.9-35.2 [facility] Comment on above: Performed By: #### C BC ####[facility] Xkmekpcgjm2583 [place] [address]DrOtto Reis MCV (RBC) [Entitic vol] 90.1 fL Normal 81.0-99.0 [facility] Comment on above: Performed By: #### C BC ####[facility] Nuxfcftxqh18[address] [place] [address]DrOtto Swathi Reis MONO # 0.8 103/ul Normal 0.3-0.8 [facility] Comment on above: Performed By: #### C BC ####[facility] Fxgyikcgwv5[address] [place] [address]DrOtto Reis Monocytes/100 WBC (Bld) 6.3 % Normal 1.7-12.0 [facility] Comment on above: Performed By: #### C BC ####[facility] Eshbfrafbh69[address] [place], [place] [address]Dr. Inessatracy Reis NEUT # 10.7 103/ul Critically high 1.4-6.5 [facility] Comment on above: Performed By: #### C BC ####[facility] Mpcfgwwxff11[address] [place], [place] [address]Dr. Swathi Reis Neutrophils/100 WBC (Bld) 83.8 % Critically high 43.0-75.0 [facility] Comment on above: Performed By: #### C BC ####[facility] Yisiitgksh[address] [place], [place] [address]DrOtto Inessatracy Reis Platelet mean volume (Bld) [Entitic vol] 10.7 fL Normal 9.5-13.5 [facility] Comment on above: Performed By: #### C BC ####[facility] Iygeitknob[address] [place] [address]Dr. Swathi Reis PLT 324 103/ul Normal 150-450 [facility] Comment on above: Performed By: #### C BC ####[facility] Tfmrimtcjg450[address] [place] [id number] Reis RBC 3.72 106/ul Critically low 4.20-5.40 [facility] Comment on above: Performed By: #### C BC ####[facility] Angttmkvwt75[address] [place] [id number] Reis WBC 12.8 103/ul Critically high 4.0-11.0 [facility] Comment on above: Performed By: #### C BC ####[facility] Aktfnjrqnc[address] [place] [address]Dr. Swathi Reis DIGOXINon 08-21-2022 DIG 1.3 ng/mL Normal 0.9-2.0 [facility] Comment on above: Performed By: #### D IG ####[facility] Ltcramafbx[address] [place] [address]Dr. Swathi Reis POINT OF CARE GLUCOSEon 07-25 Glucose [Mass/Vol] 129 mg/dL Critically high 74-106 [facility] Comment on above: Performed By: #### P OCGLUC ####[facility] Hxyksngltv85[address] [place], [place] [address]Dr. Swathi Reis Glucose [Mass/Vol] 145 mg/dL Critically high 74-106 [facility] Comment on above: Performed By: #### P OCGLUC ####[facility] Xnnwlpwfdy[address] [place], [place] [address]Dr. Swathi Reis Glucose [Mass/Vol] 366 mg/dL Critically high 74-106 [facility] Comment on above: Performed By: #### P OCGLUC ####[facility] Zbohnnghoc8723[address] [place], [place] [address]Dr. Swathi Reis Glucose [Mass/Vol] 149 mg/dL Critically high 74-106 [facility] Comment on above: Performed By: #### P OCGLUC ####[facility] Bfhunsiubt654[address] [place], [place] [address]Dr. Swathi Reis PROF 14(COMP METB)on 022 Albumin [Mass/Vol] 2.4 g/dL Critically low 3.4-5.0 [facility] Comment on above: Performed By: #### C MP, BNP ####[facility] Idnfudasho[address] [place] [address]Dr. Swathi Reis Albumin/Globulin [Mass ratio] 0.5 {ratio} Normal [facility] Comment on above: Performed By: #### C MP, BNP ####[facility] Upjzpcakqi[address] [place] [address]Dr. Swathi Reis ALP [Catalytic activity/Vol] 93 U/L Normal 46-116 [facility] Comment on above: Performed By: #### C MP, BNP ####[facility] Ryiaglbeob35[address] [place], [place] [address]Dr. Swathi Reis ALT [Catalytic activity/Vol] 11 U/L Critically low 14-59 [facility] Comment on above: Performed By: #### C MP, BNP ####[facility] Frpfamwhxb54[address] [place], [place] [address]Dr. Swathi Reis Anion gap [Moles/Vol] 9.8 mmol/L Normal [facility] Comment on above: Performed By: #### C MP, BNP ####[facility] Spgsmlqydo54[address] [place], [place] [address]Dr. Swathi Reis AST [Catalytic activity/Vol] 14 U/L Critically low 15-37 [facility] Comment on above: Performed By: #### C MP, BNP ####[facility] Jeaxssdfbo9[address] [place], [place] [address]Dr. Swathi Reis Bilirubin [Mass/Vol] 0.6 mg/dL Normal 0.2-1.0 [facility] Comment on above: Performed By: #### C MP, BNP ####[facility] Ukrdqlkaaz17[address] [place], [place] [address]Dr. Swathi Reis Calcium [Mass/Vol] 9.4 mg/dL Normal 8.5-10.1 [facility] Comment on above: Performed By: #### C MP, BNP ####[facility] Byjppaejvu[address] [place], [place] [address]Dr. Swathi Reis Chloride [Moles/Vol] 102 mmol/L Normal 98-107 [facility] Comment on above: Performed By: #### C MP, BNP ####[facility] Aurxibcagj6820[address] [place], [place] [address]Dr. Swathi Reis CO2 [Moles/Vol] 33.4 mmol/L Critically high 21.0-32.0 [facility] Comment on above: Performed By: #### C MP, BNP ####[facility] Ckuxzpcddw5[address] [place] [address]Dr. Swathi Reis Creatinine [Mass/Vol] 1.79 mg/dL Critically high 0.55-1.02 [facility] Comment on above: Performed By: #### C MP, BNP ####[facility] Jqbxyairae80[address] [place], [place] [address]Dr. Swathi Reis EGFR-AF UKRAINIAN 33 mL/min/1.73m2 Critically low >=60 [facility] Comment on above: Performed By: #### C MP, BNP ####[facility] Thknfqrtgh88[address] [place], [place] [address]Dr. Swathi Reis EGFR-NON AF UKRAINIAN 27 mL/min/1.73m2 Critically low >=60 [facility] Comment on above: Performed By: #### C MP, BNP ####[facility] Cdrptljjre17[address] [place], [place] [address]Dr. Swathi Reis Globulin (S) [Mass/Vol] 4.9 g/dL Normal [facility] Comment on above: Performed By: #### C MP, BNP ####[facility] Knovwnqpbb8[address] [place], [place] [address]Dr. Swathi Reis Glucose [Mass/Vol] 121 mg/dL Critically high 74-106 [facility] Comment on above: Performed By: #### C MP, BNP ####[facility] Zeampcqvoq7969[address] [place], [place] [address]Dr. Swathi Reis Potassium [Moles/Vol] 3.2 mmol/L Critically low 3.5-5.1 [facility] Comment on above: Performed By: #### C MP, BNP ####[facility] Quehuhalqv[address] [place], [place] [address]Dr. Swathi Reis Protein [Mass/Vol] 7.3 g/dL Normal 6.4-8.2 [facility] Comment on above: Performed By: #### C MP, BNP ####[facility] Ccjhbdgbby[address] [place], [place] [address]Dr. Swathi Reis Sodium [Moles/Vol] 142 mmol/L Normal 136-145 [facility] Comment on above: Performed By: #### C MP, BNP ####[facility] Gmrewlcqkm[address] [place], [place] [address]Dr. Swathi Chato Urea nitrogen [Mass/Vol] 32.0 mg/dL Critically high 7.0-18.0 [facility] Comment on above: Performed By: #### C MP, BNP ####[facility] Lsnmdbzklb[address] [place], [place] [address]Dr. Swathi Reis Urea nitrogen/Creatinine [Mass ratio] 17.9 mg/mg Normal [facility] Comment on above: Performed By: #### C MP, BNP ####[facility] Qvqkjefipc[address] [place], [place] [address]Dr. Swathi Chato BNPon 08-20-2022 Natriuretic peptide B (Bld) [Mass/Vol] 7302.0 pg/mL Critically high <=1,800.0 [facility] Comment on above: Performed By: #### C MP, BNP ####[facility] Vpsxiwuutt[address] [place], [place] [address]Dr. Inessatracy Chato C. DIFF PCRon 08-20-2022 C. DIFFICILE PCR Positive Critically abnormal NEGATIVE [facility] Comment on above: Performed By: #### C DIFPOC ####[facility] Gshzwbzasp[address] [place], [place] [address]Dr. Swathi Chato CBC AUTO DIFFon 08-20-2022 BASO # 0.1 103/ul Normal 0.0-0.1 [facility] Comment on above: Performed By: #### C BC ####[facility] Sgtskfvtkf[address] [place], [place] [address]Dr. Swathi Reis Basophils/100 WBC (Bld) 0.5 % Normal 0.2-2.0 [facility] Comment on above: Performed By: #### C BC ####[facility] Acifkfiwhq049[address] [place], [place] [address]Dr. Swathi Reis EO # 0.1 103/ul Normal 0.0-0.7 [facility] Comment on above: Performed By: #### C BC ####[facility] Qxqomfovyl[address] [place], [place] [address]Dr. Swathi Reis Eosinophils/100 WBC (Bld) 0.3 % Critically low 0.9-7.0 [facility] Comment on above: Performed By: #### C BC ####[facility] Wfkmxgz[address] [place] [address]Dr. Swathi Reis Erythrocyte distribution width (RBC) [Ratio] 14.5 % Normal 11.0-15.0 [facility] Comment on above: Performed By: #### C BC ####[facility] Bmayesbjdf[address] [place] [address]Dr. Swathi Reis Hematocrit (Bld) [Volume fraction] 31.4 % Critically low 36.0-48.0 [facility] Comment on above: Performed By: #### C BC ####[facility] Uosrjqzktb[address] [place] [address]Dr. Swathi Reis Hemoglobin (Bld) [Mass/Vol] 10.3 g/dL Critically low 12.0-16.0 [facility] Comment on above: Performed By: #### C BC ####[facility] Vzsnjnivew[address] [place] [address]Dr. Swathi Reis IG # 0.12 10e3/ul Critically high 0.00-0.03 [facility] Comment on above: Performed By: #### C BC ####[facility] Qkivhtztoa[address] [place] [address]Dr. Swathi Reis IG % 0.7 % Critically high 0.0-0.5 The [facility] Comment on above: Performed By: #### C BC ####[facility] Gupmftnogo[address] [place] [address]Dr. Swathi Reis LYMPH # 0.9 103/ul Critically low 1.2-3.8 The [facility] Comment on above: Performed By: #### C BC ####[facility] Jmvbfgbveu[address] [place] [address]Dr. Swathi Reis Lymphocytes/100 WBC (Bld) 5.6 % Critically low 20.5-60.0 [facility] Comment on above: Performed By: #### C BC ####[facility] Rgztizvqeb38[address] [place] [id number]. Swathi Reis MANUAL DIFF REQ NO Normal The [facility] Comment on above: Performed By: #### C BC ####[facility] Jwzyzdyofr10[address] [place] [id number]. Swathi Reis MCH (RBC) [Entitic mass] 29.3 pg Normal 26.7-34.0 [facility] Comment on above: Performed By: #### C BC ####[facility] Xxsznrmzbp1912 [place] [address]Dr. Swathi Reis MCHC (RBC) [Mass/Vol] 32.8 g/dL Normal 29.9-35.2 [facility] Comment on above: Performed By: #### C BC ####[facility] Yxxnlpoasw5363 [place] [address]Dr. Swathi Chato MCV (RBC) [Entitic vol] 89.5 fL Normal 81.0-99.0 [facility] Comment on above: Performed By: #### C BC ####[facility] Suphfuxpvr0196 [place] [id number]. Swathi Chato MONO # 0.9 103/ul Critically high 0.3-0.8 The [facility] Comment on above: Performed By: #### C BC ####[facility] Svhloqqbxh3038 [place] [address]Dr. Inessatracy Reis Monocytes/100 WBC (Bld) 5.6 % Normal 1.7-12.0 [facility] Comment on above: Performed By: #### C BC ####[facility] Sgmbdlshvy7817 [place] [address]Dr. Swathi Reis NEUT # 14.1 103/ul Critically high 1.4-6.5 The [facility] Comment on above: Performed By: #### C BC ####[facility] Tccathseyq3187 [place] [address]Dr. Inessatracy Reis Neutrophils/100 WBC (Bld) 87.3 % Critically high 43.0-75.0 [facility] Comment on above: Performed By: #### C BC ####[facility] Cmzoblvtor4100 [place] [address]Dr. Swathi Reis Platelet mean volume (Bld) [Entitic vol] 10.8 fL Normal 9.5-13.5 [facility] Comment on above: Performed By: #### C BC ####[facility] Wdnpxgvpup4741 [place] [address]Dr. Swathi Reis PLT 303 103/ul Normal 150-450 [facility] Comment on above: Performed By: #### C BC ####[facility] Dxgnvsmfhh9419 [place] [address]Dr. Swathi Reis RBC 3.51 106/ul Critically low 4.20-5.40 [facility] Comment on above: Performed By: #### C BC ####[facility] Wirccvvlvh6430 [place] [address]Dr. Swathi Reis WBC 16.2 103/ul Critically high 4.0-11.0 [facility] Comment on above: Performed By: #### C BC ####[facility] Fyntrzydsq4451 [place] [address]Dr. Swathi Reis DIGOXINon 08-20-2022 DIG 1.2 ng/mL Normal 0.9-2.0 [facility] Comment on above: Performed By: #### D IG ####[facility] Bucoirqosn6785 [place] [address]Dr. Swathi Reis POINT OF CARE GLUCOSEon 07-25 Glucose [Mass/Vol] 180 mg/dL Critically high 74-106 [facility] Comment on above: Performed By: #### P OCGLUC ####[facility] Dlpcsfhuhb0339 [place] [phone]. Swathi Reis Glucose [Mass/Vol] 115 mg/dL Critically high 74-106 [facility] Comment on above: Performed By: #### P OCGLUC ####[facility] Kdawrppjfh4519 [place] [phone]. Swathi Reis Glucose [Mass/Vol] 235 mg/dL Critically high -106 [facility] Comment on above: Performed By: #### P OCGLUC ####[facility] Ecwfmbsyqs9866 [place] [address]Dr. Swathi Reis PROF 14(COMP METB)on 022 Albumin [Mass/Vol] 2.5 g/dL Critically low 3.4-5.0 Th e [facility] Comment on above: Performed By: #### C MP, BNP ####[facility] Cvpylelylo9902 [place] [address]Dr. Swathi Reis Albumin/Globulin [Mass ratio] 0.6 {ratio} Normal [facility] Comment on above: Performed By: #### C MP, BNP ####[facility] Zuygeyxqdd5256 [place] [address]Dr. Swathi Reis ALP [Catalytic activity/Vol] 69 U/L Normal 46-116 [facility] Comment on above: Performed By: #### C MP, BNP ####[facility] Wqovfeqffh1807 [place] [address]Dr. Swathi Reis ALT [Catalytic activity/Vol] 11 U/L Critically low 14-59 [facility] Comment on above: Performed By: #### C MP, BNP ####[facility] Nurvqwecbj0515 [place] [address]Dr. Swathi Reis Anion gap [Moles/Vol] 11.7 mmol/L Normal [facility] Comment on above: Performed By: #### C MP, BNP ####[facility] Orqflzfvyt2775 [place] [address]Dr. Swathi Reis AST [Catalytic activity/Vol] 18 U/L Normal 15-37 [facility] Comment on above: Performed By: #### C MP, BNP ####[facility] Qzhlscesmk5553 [place] [address]Dr. Swathi Reis Bilirubin [Mass/Vol] 1.0 mg/dL Normal 0.2-1.0 [facility] Comment on above: Performed By: #### C MP, BNP ####[facility] Xxgxstcsuk5102 [place] [address]Dr. Swathi Reis Calcium [Mass/Vol] 9.2 mg/dL Normal 8.5-10.1 [facility] Comment on above: Performed By: #### C MP, BNP ####[facility] Kfiggvtsrh7377 [place] [address]Dr. Swathi Reis Chloride [Moles/Vol] 104 mmol/L Normal 98-107 [facility] Comment on above: Performed By: #### C MP, BNP ####[facility] Riwgegydvp[address] [place], [place] [address]Dr. Swathi Reis CO2 [Moles/Vol] 32.7 mmol/L Critically high 21.0-32.0 [facility] Comment on above: Performed By: #### C MP, BNP ####[facility] Qoemurigrm[address] [place], [place] [address]Dr. Swathi Reis Creatinine [Mass/Vol] 1.86 mg/dL Critically high 0.55-1.02 [facility] Comment on above: Performed By: #### C MP, BNP ####[facility] Rrhnryejfs[address] [place], [place] [address]Dr. Inessatracy Chato EGFR-AF UKRAINIAN 32 mL/min/1.73m2 Critically low >=60 [facility] Comment on above: Performed By: #### C MP, BNP ####[facility] Zlajubmfuu[address] [place], [place] [address]Dr. Swathi Reis EGFR-NON AF UKRAINIAN 26 mL/min/1.73m2 Critically low >=60 [facility] Comment on above: Performed By: #### C MP, BNP ####[facility] Amrqdpkppc9[address] [place], [place] [address]Dr. Swathi Reis Globulin (S) [Mass/Vol] 4.2 g/dL Normal [facility] Comment on above: Performed By: #### C MP, BNP ####[facility] Jbwzkgxvrj417[address] [place], [place] [address]Dr. Swathi Reis Glucose [Mass/Vol] 135 mg/dL Critically high 74-106 T [facility] Comment on above: Performed By: #### C MP, BNP ####[facility] Yiyqsoyikw[address] [place], [place] [address]Dr. Swathi Reis Potassium [Moles/Vol] 3.4 mmol/L Critically low 3.5-5.1 The [facility] Comment on above: Performed By: #### C MP, BNP ####[facility] Qrrfohhjed9623 [place] [address]Dr. Swathi Reis Protein [Mass/Vol] 6.7 g/dL Normal 6.4-8.2 The [facility] Comment on above: Performed By: #### C MP, BNP ####[facility] Aygtbdjcbc[address] [place], [place] [address]Dr. Inessatracy Reis Sodium [Moles/Vol] 145 mmol/L Normal 136-145 [facility] Comment on above: Performed By: #### C MP, BNP ####[facility] Ntkiqlycue6[address] [place], [place] [address]Dr. Swathi Reis Urea nitrogen [Mass/Vol] 29.0 mg/dL Critically high 7.0-18.0 [facility] Comment on above: Performed By: #### C MP, BNP ####[facility] Mrozwdcvhj[address] [place], [place] [address]Dr. Swathi Reis Urea nitrogen/Creatinine [Mass ratio] 15.6 mg/mg Normal [facility] Comment on above: Performed By: #### C MP, BNP ####[facility] Buogvaupgs[address] [place], [place] [address]Dr. Inessatracy Reis XR CHEST 1 Von 08-20-2022 XR CHEST 1 V Normal [facility] BLOOD GASES BTYon 08-19-2022 02 MODE BIPAP Normal [facility] Comment on above: Performed By: #### A BG ####[facility] Ljiuhmtuio[address] [place], [place] [address]Dr. Swathi Reis ALLENS TEST Positive Normal [facility] Comment on above: Performed By: #### A BG ####[facility] Fdrbmzhmpz97[address] [place], [place] [address]Dr. Swathi Reis Base excess Calc (Bld) [Moles/Vol] 0.8 mmol/L Normal -2.0-2.0 [facility] Comment on above: Performed By: #### A BG ####[facility] Aeboqrzbbg0605 [place] [address]Dr. Swathi Reis BIPAP PRESSURE 12/6 Normal The [facility] Comment on above: Performed By: #### A BG ####[facility] Zalvsydwqu1256 [place] [address]Dr. Swathi Reis CPAP Normal [facility] Comment on above: Performed By: #### A BG ####[facility] Tldlqpdlya1590 [place] [address]Dr. Swathi Reis FIO2 90.00 % Normal [facility] Comment on above: Performed By: #### A BG ####[facility] Scbbyugxzp[address] [place], [place] [address]Dr. Swathi Reis HCO3 (Bld) [Moles/Vol] 25.9 mmol/L Normal 22.0-26.0 [facility] Comment on above: Performed By: #### A BG ####[facility] Fxakjxjlsb[address] [place], [place] [address]Dr. Swathi Chato LPM Normal [facility] Comment on above: Performed By: #### A BG ####[facility] Potyhivchh[address] [place], [place] [address]Dr. Swathi Reis MINUTE VOLUME Normal [facility] Comment on above: Performed By: #### A BG ####[facility] Jfogpbfnyy78[address] [place], [place] [address]Dr. Swathi Reis Oxygen (Bld) [Partial pressure] 95.0 mm[Hg] Normal 80.0-100.0 [facility] Comment on above: Performed By: #### A BG ####[facility] Smcjhpdtca[address] [place], [place] [address]Dr. Swathi Reis Oxygen saturation in Blood 97.7 % Normal 95.0-100.0 [facility] Comment on above: Performed By: #### A BG ####[facility] Jncsetmndl[address] [place], [place] [address]Dr. Swathi Reis PCO2 44.2 mmHg Normal 35.0-45.0 [facility] Comment on above: Performed By: #### A BG ####[facility] Wcsoldlang0461 [place] [address]Dr. Swathi Reis PEEP [facility] Comment on above: Performed By: #### A BG ####[facility] Hcbthqqcgy9952 [place] [address]Dr. Swathi Reis pH (Bld) 7.377 [pH] Normal 7.350-7.450 [facility] Comment on above: Performed By: #### A BG ####[facility] Dafczdifum0485 [place] [address]Dr. Swathi Reis PIP [facility] Comment on above: Performed By: #### A BG ####[facility] Bkdrqwtojz[address] [place], [place] [address]Dr. Swathi Reis PS [facility] Comment on above: Performed By: #### A BG ####[facility] Kpcxwndjsa[address] [place], [place] [address]Dr. Swathi Reis PUNCTURE SITE RR [facility] Comment on above: Performed By: #### A BG ####[facility] Galqbybqrz[address] [place], [place] [address]Dr. Swathi Reis RATE [facility] Comment on above: Performed By: #### A BG ####[facility] Wjrdrnyhat[address] [place], [place] [address]Dr. Swathi Reis VENT MODE [facility] Comment on above: Performed By: #### A BG ####[facility] Zxmzgbmoqp99[address] [place], [place] [address]Dr. Swathi Reis VT [facility] Comment on above: Performed By: #### A BG ####[facility] Dhxpliryeb9[address] [place], [place] [address]Dr. Swathi Reis BNPon 08-19-2022 Natriuretic peptide B (Bld) [Mass/Vol] 2862.0 pg/mL Critically high <=1,800.0 [facility] Comment on above: Performed By: #### L IPA, BNP ####[facility] Vculhhnelm[address] [place], [place] [address]Dr. Swathi Reis CARDIAC TRINA 3-6on 2 CK [Catalytic activity/Vol] 25 U/L Critically low 26-192 [facility] Comment on above: Performed By: #### C MREP ####[facility] Mauwvblrax8741 [place] [address]Dr. Swathi Reis CK.MB [Mass/Vol] 0.57 ng/mL Normal <=3.60 The [facility] Comment on above: Performed By: #### C MREP ####[facility] Xayhbgfaea7673 [place] [address]Dr. Swathi Reis HSTROP 16.6 pg/mL Normal 4.0-51.3 The [facility] Comment on above: Result Comment: CUT- OFF POINTS HAVE BEEN ESTABLISHED BASED ON THE FOURTH UNIVERSAL DEFINITIONS OF MYOCARDIALINFARCTION. THE UPPER REFERENCE LIMIT (URL) OF TROPONIN, DEFINED THE 99TH PERCENTILE OFcTnI DISTRIBUTION IN A REFERENCE POPULATION, HAS BEEN CONFIRMED THE DECISION THRESHOLDFOR NE DIAGNOSIS. Performed By: #### C MREP ####[facility] Haiickouuu40[address] [place] [address]Dr. Swathi Reis CK [Catalytic activity/Vol] 26 U/L Normal 26-192 [facility] Comment on above: Performed By: #### C MREP ####[facility] Skwkognynl9058 [place] [address]Dr. Swathi Reis CK.MB [Mass/Vol] 0.59 ng/mL Normal <=3.60 The [facility] Comment on above: Performed By: #### C MREP ####[facility] Rmvvxxvnkv3394 [place] [address]Dr. Swathi Reis HSTROP 16.3 pg/mL Normal 4.0-51.3 [facility] Comment on above: Result Comment: CUT- OFF POINTS HAVE BEEN ESTABLISHED BASED ON THE FOURTH UNIVERSAL DEFINITIONS OF MYOCARDIALINFARCTION. THE UPPER REFERENCE LIMIT (URL) OF TROPONIN, DEFINED THE 99TH PERCENTILE OFcTnI DISTRIBUTION IN A REFERENCE POPULATION, HAS BEEN CONFIRMED THE DECISION THRESHOLDFOR NE DIAGNOSIS. Performed By: #### C MREP ####[facility] Xbmwohgrhe7727 [place] [address]Dr. Swathi Reis CBC AUTO DIFFon 08-19-2022 BASO # 0.1 103/ul Normal 0.0-0.1 [facility] Comment on above: Performed By: #### C BC ####[facility] Jxeqbfxzpb6[address] [place], [place] [address]Dr. Swathi Reis Basophils/100 WBC (Bld) 0.4 % Normal 0.2-2.0 [facility] Comment on above: Performed By: #### C BC ####[facility] Sjakjawfnj[address] [place], [place] [address]Dr. Swathi Reis EO # 0.1 103/ul Normal 0.0-0.7 [facility] Comment on above: Performed By: #### C BC ####[facility] Bapbsmctli[address] [place], [place] [address]Dr. Swathi Reis Eosinophils/100 WBC (Bld) 0.4 % Critically low 0.9-7.0 [facility] Comment on above: Performed By: #### C BC ####[facility] Xkvfqelxhp[address] [place], [place] [address]Dr. Swathi Reis Erythrocyte distribution width (RBC) [Ratio] 14.2 % Normal 11.0-15.0 [facility] Comment on above: Performed By: #### C BC ####[facility] Wtolrynqdi[address] [place], [place] [address]Dr. Swathi Reis Hematocrit (Bld) [Volume fraction] 34.4 % Critically low 36.0-48.0 [facility] Comment on above: Performed By: #### C BC ####[facility] Wyfhfcdcqg[address] [place], [place] [address]Dr. Swathi Reis Hemoglobin (Bld) [Mass/Vol] 11.2 g/dL Critically low 12.0-16.0 [facility] Comment on above: Performed By: #### C BC ####[facility] Ufvinahrtp[address] [place], [place] [address]Dr. Swathi Reis IG # 0.08 10e3/ul Critically high 0.00-0.03 The [facility] Comment on above: Performed By: #### C BC ####[facility] Emlsahreav54[address] [place] [id number]. Swathi Reis IG % 0.4 % Normal 0.0-0.5 The [facility] Comment on above: Performed By: #### C BC ####[facility] Zhrwxjqixn1196 [place] [address]Dr. Swathi Reis LYMPH # 0.8 103/ul Critically low 1.2-3.8 The [facility] Comment on above: Performed By: #### C BC ####[facility] Nhozlpmlom8443 [place] [address]Dr. Swathi Chato Lymphocytes/100 WBC (Bld) 4.1 % Critically low 20.5-60.0 [facility] Comment on above: Performed By: #### C BC ####[facility] Emunmlwfta2443 [place] [address]Dr. Inessatracy Reis MANUAL DIFF REQ NO Normal The [facility] Comment on above: Performed By: #### C BC ####[facility] Iocuuqfblk7404 [place] [address]Dr. Swathi Reis MCH (RBC) [Entitic mass] 29.1 pg Normal 26.7-34.0 [facility] Comment on above: Performed By: #### C BC ####[facility] Itfqwbxael[address] [place], [place] [address]Dr. Swathi Reis MCHC (RBC) [Mass/Vol] 32.6 g/dL Normal 29.9-35.2 [facility] Comment on above: Performed By: #### C BC ####[facility] Onvdivigtc9096 [place] [address]Dr. Swathi Reis MCV (RBC) [Entitic vol] 89.4 fL Normal 81.0-99.0 [facility] Comment on above: Performed By: #### C BC ####[facility] Jbksswiogy[address] [place], [place] [address]Dr. Swathi Reis MONO # 1.1 103/ul Critically high 0.3-0.8 The [facility] Comment on above: Performed By: #### C BC ####[facility] Jdzmczudem3865 [place] [id number]. Swathi Reis Monocytes/100 WBC (Bld) 5.8 % Normal 1.7-12.0 [facility] Comment on above: Performed By: #### C BC ####[facility] Imgubxahnp4251 [place] [address]Dr. Swathi Reis NEUT # 16.4 103/ul Critically high 1.4-6.5 The [facility] Comment on above: Performed By: #### C BC ####[facility] Digvjomzfq4711 [place] [address]Dr. Swathi Reis Neutrophils/100 WBC (Bld) 88.9 % Critically high 43.0-75.0 The [facility] Comment on above: Performed By: #### C BC ####[facility] Yssfvyyeun7[address] [place] [address]Dr. Swathi Reis Platelet mean volume (Bld) [Entitic vol] 10.6 fL Normal 9.5-13.5 [facility] Comment on above: Performed By: #### C BC ####[facility] Vulcsxkdgr3993 [place] [address]Dr. Swathi Reis PLT 366 103/ul Normal 150-450 [facility] Comment on above: Performed By: #### C BC ####[facility] Fkgnfelorl8998 [place] [address]Dr. Swathi Reis RBC 3.85 106/ul Critically low 4.20-5.40 The [facility] Comment on above: Performed By: #### C BC ####[facility] Rdmycvbimq4693 [place] [address]Dr. Swathi Reis WBC 18.4 103/ul Critically high 4.0-11.0 The [facility] Comment on above: Performed By: #### C BC ####[facility] Nmifzymwcf2361 [place] [id number]. Swathi Reis CTA CHEST WO W CONon 022 CTA CHEST WO W CON Normal [facility] CULTURE BLOODon 08-19-2022 Microscopic examination of blood, culture Culture Observations: NO GROWTH AT 5 DAYS. Normal The [facility] Comment on above: Performed By: #### B LDCX2 ####[facility] [facility] Patchzpnvp0709 [place] [id number]. Swathi Reis Microscopic examination of blood, culture Culture Observations: NO GROWTH AT [address] [facility] Comment on above: Performed By: #### B LDCX1 ####[facility] [address]ozt[address]omvf[address] [place] [address]Dr. Swathi Reis Covid-19 PCR (CVDTB)on 07-25 SARS-CoV-2 [...] for this test is supported by the [place] [employer] and Human Service's declaration that [...] #### C VDTBH ####[facility] Cmqmpzlyhq[address] [place] [address]Dr. Swathi Reis Performed By: #### R SPLUS ####[facility] Dvltmgxonx7[address] [place] [address]Dr. Swathi Reis LACTATE/LACTIC ACIDon 2021 Lactate [Moles/Vol] 1.5 mmol/L Normal 0.4-1.9 [facility] Comment on above: Performed By: #### L ACT ####[facility] Ynkxrisrvl350[address] [place] [address]Dr. Swathi Reis LIPASEon 08-19-2022 Lipase [Catalytic activity/Vol] 130.0 U/L Normal 73.0-393.0 [facility] Comment on above: Performed By: #### L IPA, BNP ####[facility] Ezrnjoufbx35[address] [place] [address]Dr. Swathi Reis POINT OF CARE GLUCOSEon 07-25 Glucose [Mass/Vol] 222 mg/dL Critically high -106 [facility] Comment on above: Performed By: #### P OCGLUC ####[facility] Zxngpemsak[address] [place], [place] [address]Dr. Swathi Reis Glucose [Mass/Vol] 166 mg/dL Critically high -106 [facility] Comment on above: Performed By: #### P OCGLUC ####[facility] Nytkiqonho[address] [place], [place] [address]Dr. Swathi Reis Glucose [Mass/Vol] 213 mg/dL Critically high -106 [facility] Comment on above: Performed By: #### P OCGLUC ####[facility] Vfabzneibf[address] [place], [place] [address]Dr. Swathi Reis RESPIRATORY PANEL PLUSon Adenovirus Not detected Normal NOT DETECTED [facility] Comment on above: Performed By: #### R SPLUS ####[facility] Pbqgvaptty01[address] [place], [place] [address]Dr. tracy Reis B. Parapertusis Not detected Normal NOT DETECTED [facility] Comment on above: Performed By: #### R SPLUS ####[facility] Ssypvxreub7[address] [place], [place] [address]Dr. Swathi Reis B. Pertussis Not detected Normal NOT DETECTED [facility] Comment on above: Performed By: #### R SPLUS ####[facility] Iwkdbxkhzf48[address] [place], [place] [address]Dr. tracy [facility] Chlamydia Pneumoniae Not detected Normal NOT DETECTED [facility] Comment on above: Performed By: #### R SPLUS ####[facility] Hwlrhzchxx69[address] [place], [place] [address]Dr. tracy [facility] Coronavirus 229E Not detected Normal NOT DETECTED [facility] Comment on above: Performed By: #### R SPLUS ####[facility] Bewbdondgh0916[address] [place], [place] [address]Dr. Swathi [facility] Coronavirus HKU1 Not detected Normal NOT DETECTED [facility] Comment on above: Performed By: #### R SPLUS ####[facility] Jpqcyibfnx705[address] [place], [place] [address]Dr. Swathi [facility] Coronavirus NL63 Not detected Normal NOT DETECTED [facility] Comment on above: Performed By: #### R SPLUS ####[facility] Yknlenaghg[address] [place], [place] [address]Dr. Swathi [facility] Coronavirus OC43 Not detected Normal NOT DETECTED [facility] Comment on above: Performed By: #### R SPLUS ####[facility] Doiqaslaqc67[address] [place], [place] [address]Dr. Swathi [facility] Influenza A H1 2009 Not detected Normal NOT DETECTED [facility] Comment on above: Performed By: #### R SPLUS ####[facility] Wddpjuqrno47[address] [place], [place] [address]Dr. Swathi Reis Influenza A H3 Not detected Normal NOT DETECTED [facility] Comment on above: Performed By: #### R SPLUS ####[facility] Cjypjuspzw[address] [place], [place] [address]Dr. Swathi [facility] Influenza B Not detected Normal NOT DETECTED [facility] Comment on above: Performed By: #### R SPLUS ####[facility] Jzbiezcdqf205[address] [place], [place] [address]Dr. Swathi [facility] Metapneumovirus Not detected Normal NOT DETECTED [facility] Comment on above: Performed By: #### R SPLUS ####[facility] Xkibpamleu818[address] [place], [place] [address]Dr. Swathi Reis Mycoplas. Pneumoniae Not detected Normal NOT DETECTED [facility] Comment on above: Performed By: #### R SPLUS ####[facility] Woqbccvkcw9218[address] [place], [place] [address]Dr. Swathi Reis Parainfluenza 1 Not detected Normal NOT DETECTED [facility] Comment on above: Performed By: #### R SPLUS ####[facility] Hpcjvnzays346[address] [place], [place] [address]Dr. Swathi Reis Parainfluenza 2 Not detected Normal NOT DETECTED [facility] Comment on above: Performed By: #### R SPLUS ####[facility] Rznpyahlqc[address] [place], [place] [address]Dr. Swathi Reis Parainfluenza 3 Not detected Normal NOT DETECTED [facility] Comment on above: Performed By: #### R SPLUS ####[facility] Cnqwznsuai78[address] [place], [place] [address]Dr. Swathi Reis Parainfluenza 4 Not detected Normal NOT DETECTED [facility] Comment on above: Performed By: #### R SPLUS ####[facility] Qebztgtoze0512[address] [place], [place] [address]Dr. Swathi Reis Rhino/Enterovirus Not detected Normal NOT DETECTED [facility] Comment on above: Performed By: #### R SPLUS ####[facility] Rakcgtffxu3600[address] [place], [place] [address]Dr. Swathi Reis RP2 Header 1 RESPIRATORY PANEL: VIRUSES Normal [facility] Comment on above: Performed By: #### R SPLUS ####[facility] Pyivoguala5287[address] [place], [place] [address]Dr. Swathi Reis RP2 Header 2 RESPIRATORY PANEL: BACTERIA Normal [facility] Comment on above: Performed By: #### R SPLUS ####[facility] Pprsozocsx857[address] [place], [place] [address]Dr. Swathi Reis RSV Not detected Normal NOT DETECTED [facility] Comment on above: Performed By: #### R SPLUS ####[facility] Prpigeaanv1735[address] [place], [place] [address]Dr. Swathi Reis XR CHEST 1 Von 08-19-2022 XR CHEST 1 V Normal [facility] BNPon 08-18-2022 Natriuretic peptide B (Bld) [Mass/Vol] 2955.0 pg/mL Critically high <=1,800.0 [facility] Comment on above: Performed By: #### B HYDRO GENERATION MANAGER ####[facility] Osmdzyrdzk[address] [place] [id number]. Swathi Chato CARDIAC TRINA ADMITon 022 CK [Catalytic activity/Vol] 26 U/L Normal 26-192 [facility] Comment on above: Performed By: #### B FAY, RACQUEL ####[facility] Xmagpdidmg5923 [place] [id number]. Swathi Reis CK.MB [Mass/Vol] 0.79 ng/mL Normal <=3.60 [facility] Comment on above: Performed By: #### B FAY, RACQUEL ####[facility] Fedogrgovk[address] [place] [address]Dr. Inessatracy Reis HSTROP 16.0 pg/mL Normal 4.0-51.3 [facility] Comment on above: Result Comment: CUT- OFF POINTS HAVE BEEN ESTABLISHED BASED ON THE FOURTH UNIVERSAL DEFINITIONS OF MYOCARDIALINFARCTION. THE UPPER REFERENCE LIMIT (URL) OF TROPONIN, DEFINED THE 99TH PERCENTILE OFcTnI DISTRIBUTION IN A REFERENCE POPULATION, HAS BEEN CONFIRMED THE DECISION THRESHOLDFOR NE DIAGNOSIS. Performed By: #### B RACQUEL APONTE ####[facility] Yhiilzabht[address] [place], [place] [address]Dr. Inessatracy Reis GUANACO 47 ng/mL Normal 9-82 [facility] Comment on above: Performed By: #### B RACQUEL APONTE ####[facility] Ufasbzltub[address] [place] [address]Dr. Swathi Reis CBC AUTO DIFFon 08-18-2022 BASO # 0.1 103/ul Normal 0.0-0.1 [facility] Comment on above: Performed By: #### C BC ####[facility] Qkdbtpdpsg4599 [place] [address]Dr. Swathi Reis Basophils/100 WBC (Bld) 0.4 % Normal 0.2-2.0 [facility] Comment on above: Performed By: #### C BC ####[facility] Gfdetotaoy9[address] [place], [place] [address]Dr. Swathi Reis EO # 0.1 103/ul Normal 0.0-0.7 [facility] Comment on above: Performed By: #### C BC ####[facility] Ctlxkxndmy6627 [place] [address]Dr. Swathi Reis Eosinophils/100 WBC (Bld) 0.9 % Normal 0.9-7.0 [facility] Comment on above: Performed By: #### C BC ####[facility] Wgviejwkrp027[address] [place] [address]Dr. Swathi Reis Erythrocyte distribution width (RBC) [Ratio] 14.2 % Normal 11.0-15.0 [facility] Comment on above: Performed By: #### C BC ####[facility] Lwpjszhydx[address] [place], [place] [address]Dr. Swathi Reis Hematocrit (Bld) [Volume fraction] 34.1 % Critically low 36.0-48.0 [facility] Comment on above: Performed By: #### C BC ####[facility] Qysnapmymv260[address] [place], [place] [address]Dr. Swathi Reis Hemoglobin (Bld) [Mass/Vol] 11.2 g/dL Critically low 12.0-16.0 [facility] Comment on above: Performed By: #### C BC ####[facility] Dmithoxnyp9547[address] [place], [place] [address]Dr. Swathi Reis IG # 0.06 10e3/ul Critically high 0.00-0.03 [facility] Comment on above: Performed By: #### C BC ####[facility] Bsecityabx9024[address] [place], [place] [address]Dr. Swathi Reis IG % 0.4 % Normal 0.0-0.5 [facility] Comment on above: Performed By: #### C BC ####[facility] Exsnobcbwo[address] [place], [place] [address]Dr. Swathi Reis LYMPH # 1.4 103/ul Normal 1.2-3.8 [facility] Comment on above: Performed By: #### C BC ####[facility] Uaxtqtgwwe25[address] [place], [place] [address]Dr. Swathi Reis Lymphocytes/100 WBC (Bld) 10.1 % Critically low 20.5-60.0 [facility] Comment on above: Performed By: #### C BC ####[facility] Rgulhosfeu4355 [place] [id number]. Swathi Reis MANUAL DIFF REQ NO Normal [facility] Comment on above: Performed By: #### C BC ####[facility] Xggeojlyvv9004 [place] [address]Dr. Swathi Reis MCH (RBC) [Entitic mass] 29.2 pg Normal 26.7-34.0 [facility] Comment on above: Performed By: #### C BC ####[facility] Vvlofgxyhl8123 [place] [address]Dr. Swathi Reis MCHC (RBC) [Mass/Vol] 32.8 g/dL Normal 29.9-35.2 [facility] Comment on above: Performed By: #### C BC ####[facility] Hhygxudeco[address] [place], [place] [address]Dr. Swathi Reis MCV (RBC) [Entitic vol] 89.0 fL Normal 81.0-99.0 [facility] Comment on above: Performed By: #### C BC ####[facility] [address]vwsj[address] [place], [place] [address]Dr. Swathi Reis MONO # 1.1 103/ul Critically high 0.3-0.8 [facility] Comment on above: Performed By: #### C BC ####[facility] Qolbrxkpjg24[address] [place], [place] [address]Dr. Swathi Reis Monocytes/100 WBC (Bld) 8.3 % Normal 1.7-12.0 [facility] Comment on above: Performed By: #### C BC ####[facility] Slajbnukct37[address] [place] [address]Dr. Swathi Reis NEUT # 11.0 103/ul Critically high 1.4-6.5 The [facility] Comment on above: Performed By: #### C BC ####[facility] Qdptqxxuzu3218 [place] [address]Dr. Swathi Reis Neutrophils/100 WBC (Bld) 79.9 % Critically high 43.0-75.0 [facility] Comment on above: Performed By: #### C BC ####[facility] Aq[address]rtvmynq[address] [place], [place] [address]Bp. Swathi Reis Platelet mean volume (Bld) [Entitic vol] 10.7 fL Normal 9.5-13.5 [facility] Comment on above: Performed By: #### C BC ####[facility] Egqitgicmy9966 [place], [place] [address]Aq. Swathi Reis PLT 408 103/ul Normal 150-450 [facility] Comment on above: Performed By: #### C BC ####[facility] Iecxzpfreu2289 [place], [place] [address]Cr. Swathi Reis RBC 3.83 106/ul Critically low 4.20-5.40 [facility] Comment on above: Performed By: #### C BC ####[facility] Rydbvtbotq3487 [place], [place] [address]Fp. Swathi Reis WBC 13.8 103/ul Critically high 4.0-11.0 [facility] Comment on above: Performed By: #### C BC ####[facility] Bzwdfkflfd9542 [place], [place] [address]Wo. Swathi Reis Covid-19 PCR ([facility])on 07-25 SARS-CoV-2 (COVID-19) RNA ÓSCAR+probe Ql (Unsp [...] for this test is supported by the [place] [employer] and Human Service's declaration that [...] #### C VDTBH ####[facility] Jbmfwtaesj9[address] [place], [place] [address]Dr. Swathi Reis D-DIMERon 08-18-2022 D-DIMER 1.83 mg/L FEU Critically high <=0.59 [facility] Comment on above: Performed By: #### D DIM ####[facility] Cmhbknqqsi37[address] [place] [address]Dr. Swathi Reis D-DIMER COMMENTS SEE BELOW Normal [facility] Comment on above: Result Comment: Incr [...] #### D DIM ####[facility] Magsmrkqtj[address] [place], [place] [address]Dr. Swathi Reis INFLUENZA A AND B AGon 08-18 INFLUENZA A AG Negative Normal NEGATIVE SEE COMMENT [facility] Comment on above: Performed By: #### R SV, INFLUAB ####[facility] Baxotpdfec017[address] [place], [place] [address]Dr. Swathi Reis INFLUENZA B AG Negative Normal NEGATIVE SEE COMMENT [facility] Comment on above: Performed By: #### R SV, INFLUAB ####[facility] Gbidyxclto057[address] [place], [place] [address]Dr. Swathi Reis INFLUPOSH SEE BELOW Normal [facility] Comment on above: Result Comment: NOTE : Live attenuated influenzae vaccine viruses can cause a positive result for a rapid influenza diagnostic test if administered up to 7 days prior to rapid testing. Performed By: #### R SV, INFLUAB ####[facility] Cxhparjbeq130[address] [place], [place] [address]Dr. Swathi Reis INFLUPOSHB SEE BELOW Normal [facility] Comment on above: Result Comment: NOTE : Live attenuated influenzae vaccine viruses can cause a positive result for a rapid influenza diagnostic test if administered up to 7 days prior to rapid testing. Performed By: #### R SV, INFLUAB ####[facility] Iugidawzkz15[address] [place] [address]Dr. Swatih Reis INTERNAL CONTROLS Within Normal Limits Normal Wi thin Normal Limits [facility] Comment on above: Performed By: #### R SV, INFLUAB ####[facility] Uauoznebyz9[address] [place], [place] [address]Dr. Swathi Reis LACTATE/LACTIC ACIDon 2021 Lactate [Moles/Vol] 1.9 mmol/L Normal 0.4-1.9 [facility] Comment on above: Performed By: #### L ACT ####[facility] Fyhrcuhxds32[address] [place], [place] [address]Dr. Swathi Reis PROF CHEM 8 (BAS METB)on Anion gap [Moles/Vol] 13.9 mmol/L Normal [facility] Comment on above: Performed By: #### RACQUEL Gonsales MP ####[facility] Vqrmyoopua[address] [place], [place] [address]Dr. Swathi Reis Calcium [Mass/Vol] 9.9 mg/dL Normal 8.5-10.1 [facility] Comment on above: Performed By: #### B FAY, CMADM ####[facility] Liizvblatu[address] [place], [place] [address]Dr. Swathi Reis Chloride [Moles/Vol] 102 mmol/L Normal 98-107 [facility] Comment on above: Performed By: #### B FAY, CMADM ####[facility] Ahfpqwcbpx[address] [place], [place] [address]Dr. Swathi Reis CO2 [Moles/Vol] 29.6 mmol/L Normal 21.0-32.0 [facility] Comment on above: Performed By: #### Dru APONTE, CMADM ####[facility] Hiqgdwtadd[address] [place], [place] [address]Dr. Swathi Reis Creatinine [Mass/Vol] 1.61 mg/dL Critically high 0.55-1.02 [facility] Comment on above: Performed By: #### RACQUEL Gonsales MP ####[facility] Qgnchcknyt34[address] [place] [address]Dr. Swathi Reis EGFR-AF UKRAINIAN 38 mL/min/1.73m2 Critically low >=60 [facility] Comment on above: Performed By: #### RACQUEL Gonsales MP ####[facility] Tpzedhhamj[address] [place] [address]Dr. Swathi Reis EGFR-NON AF UKRAINIAN 31 mL/min/1.73m2 Critically low >=60 [facility] Comment on above: Performed By: #### RACQUEL Gonsales MP ####[facility] Gufrlpuvto[address] [place], [place] [address]Dr. Swathi Reis Glucose [Mass/Vol] 192 mg/dL Critically high 74-106 T [facility] Comment on above: Performed By: #### RACQUEL Gonsales MP ####[facility] Mzjkhubvfx38[address] [place], [place] [address]Dr. Swathi Reis Potassium [Moles/Vol] 4.5 mmol/L Normal 3.5-5.1 [facility] Comment on above: Performed By: #### RACQUEL Gonsales MP ####[facility] Pbykxjtahn26[address] [place], [place] [address]Dr. Swathi Reis Sodium [Moles/Vol] 141 mmol/L Normal 136-145 [facility] Comment on above: Performed By: #### RACQUEL Gonsales MP ####[facility] Yyagkatssn[address] [place], [place] [address]Dr. Swathi Ries Urea nitrogen [Mass/Vol] 27.0 mg/dL Critically high 7.0-18.0 [facility] Comment on above: Performed By: #### RACQUEL Gonsales MP ####[facility] Rtbgnllmwi16[address] [place] [address]Dr. Swathi Reis Urea nitrogen/Creatinine [Mass ratio] 16.8 mg/mg Normal [facility] Comment on above: Performed By: #### RACQUEL Gonsales MP ####[facility] Yjxolpqtwt[address] [place] [address]Dr. Swathi Reis RSVon 08-18-2022 RSV AG Negative Normal NEGATIVE [facility] Comment on above: Performed By: #### R SV, INFLUAB ####[facility] Mrgivbmrpe[address] [place], [place] [address]Dr. Swathi Reis BNPon 07-12-2022 Natriuretic peptide B (Bld) [Mass/Vol] 5375.0 pg/mL Critically high <=1,800.0 [facility] Comment on above: Performed By: #### B HYDRO GENERATION MANAGER, CMP ####[facility] Plupvdqyzm[address] [place], [place] [address]Dr. Swathi Reis CBC AUTO DIFFon 07-12-2022 BASO # 0.1 103/ul Normal 0.0-0.1 [facility] Comment on above: Performed By: #### C BC ####[facility] Twydyfowrc[address] [place], [place] [address]Dr. Swathi Reis Basophils/100 WBC (Bld) 0.7 % Normal 0.2-2.0 [facility] Comment on above: Performed By: #### C BC ####[facility] Vauhejkycn[address] [place], [place] [address]Dr. Swathi Reis EO # 0.3 103/ul Normal 0.0-0.7 [facility] Comment on above: Performed By: #### C BC ####[facility] Lulsbynmfz[address] [place], [place] [address]Dr. Swathi Reis Eosinophils/100 WBC (Bld) 3.2 % Normal 0.9-7.0 [facility] Comment on above: Performed By: #### C BC ####[facility] Kyxhjmhfgi[address] [place], [place] [address]Dr. Swathi Reis Erythrocyte distribution width (RBC) [Ratio] 13.3 % Normal 11.0-15.0 [facility] Comment on above: Performed By: #### C BC ####[facility] Isgdqeeuhq[address] [place], [place] [address]Dr. Swathi Reis Hematocrit (Bld) [Volume fraction] 29.9 % Critically low 36.0-48.0 [facility] Comment on above: Performed By: #### C BC ####[facility] Rdlpozcylx79[address] [place] [address]DrOtto Reis Hemoglobin (Bld) [Mass/Vol] 9.7 g/dL Critically low 12.0-16.0 [facility] Comment on above: Performed By: #### C BC ####[facility] Nzskjxppon7405 [place] [address]DrOtto Reis IG # 0.05 10e3/ul Critically high 0.00-0.03 [facility] Comment on above: Performed By: #### C BC ####[facility] Cuvoicvkkc7[address] [place] [address]DrOtto Reis IG % 0.5 % Normal 0.0-0.5 [facility] Comment on above: Performed By: #### C BC ####[facility] N[address]ffmzzpyc[address] [place], [place] [address]DrOtto Reis LYMPH # 1.5 103/ul Normal 1.2-3.8 [facility] Comment on above: Performed By: #### C BC ####[facility] Dhjzbnnzql5338 [place] [address]DrOtto Reis Lymphocytes/100 WBC (Bld) 14.0 % Critically low 20.5-60.0 [facility] Comment on above: Performed By: #### C BC ####[facility] Bwhacdzsvy2[address] [place] [address]DrOtto Reis MANUAL DIFF REQ NO Normal [facility] Comment on above: Performed By: #### C BC ####[facility] Lyodgyivrp2887 [place] [id number] Reis MCH (RBC) [Entitic mass] 30.1 pg Normal 26.7-34.0 [facility] Comment on above: Performed By: #### C BC ####[facility] Xwdokbmzay5903 [place] [id number] Reis MCHC (RBC) [Mass/Vol] 32.4 g/dL Normal 29.9-35.2 [facility] Comment on above: Performed By: #### C BC ####[facility] Tqpulqxuto3389 [place] [id number] Swathi Chato MCV (RBC) [Entitic vol] 92.9 fL Normal 81.0-99.0 [facility] Comment on above: Performed By: #### C BC ####[facility] Pbohtterar14[address] [place] [address]DrOtto Reis MONO # 1.2 103/ul Critically high 0.3-0.8 [facility] Comment on above: Performed By: #### C BC ####[facility] Oufmchyist6703 [place] [address]DrOtto Reis Monocytes/100 WBC (Bld) 11.1 % Normal 1.7-12.0 [facility] Comment on above: Performed By: #### C BC ####[facility] Kbamzuhq[address] [place], [place] [address]DrOtto Reis NEUT # 7.5 103/ul Critically high 1.4-6.5 The [facility] Comment on above: Performed By: #### C BC ####[facility] Dqfrphqguv49[address] [place], [place] [address]DrOtto Reis Neutrophils/100 WBC (Bld) 70.5 % Normal 43.0-75.0 [facility] Comment on above: Performed By: #### C BC ####[facility] Twcqmpcztr24[address] [place], [place] [address]DrOtto Reis Platelet mean volume (Bld) [Entitic vol] 10.7 fL Normal 9.5-13.5 [facility] Comment on above: Performed By: #### C BC ####[facility] Zmlbivpwqc06[address] [place], [place] [address]DrOtto Reis PLT 291 103/ul Normal 150-450 [facility] Comment on above: Performed By: #### C BC ####[facility] Cylmyruriu49[address] [place] [id number] Reis RBC 3.22 106/ul Critically low 4.20-5.40 [facility] Comment on above: Performed By: #### C BC ####[facility] Bnyamhediw6401 [place] [address]Dr. Swathi Reis WBC 10.6 103/ul Normal 4.0-11.0 [facility] Comment on above: Performed By: #### C BC ####[facility] Nspqsmtrot3265 [place] [address]Dr. Swathi Reis POINT OF CARE GLUCOSEon 06-24 0-2021 Glucose [Mass/Vol] 191 mg/dL Critically high 74-106 T [facility] Comment on above: Performed By: #### P OCGLUC ####[facility] Kjwzndcyop034[address] [place], [place] [address]Dr. Swathi Reis PROF 14(COMP METB)on 022 Albumin [Mass/Vol] 2.4 g/dL Critically low 3.4-5.0 [facility] Comment on above: Performed By: #### B HYDRO GENERATION MANAGER, CMP ####[facility] Xcvkytsmmz369[address] [place], [place] [address]Dr. Swathi Reis Albumin/Globulin [Mass ratio] 0.6 {ratio} Normal [facility] Comment on above: Performed By: #### B HYDRO GENERATION MANAGER, CMP ####[facility] Yrkxrzchql5189[address] [place], [place] [address]Dr. Swathi Reis ALP [Catalytic activity/Vol] 73 U/L Normal 46-116 [facility] Comment on above: Performed By: #### B HYDRO GENERATION MANAGER, CMP ####[facility] Kxjkvcaqbi4095 [place] [address]Dr. Swathi Reis ALT [Catalytic activity/Vol] 11 U/L Critically low 14-59 [facility] Comment on above: Performed By: #### B HYDRO GENERATION MANAGER, CMP ####[facility] Fmldrqwwbj5635[address] [place], [place] [address]Dr. Swathi Reis Anion gap [Moles/Vol] 7.7 mmol/L Normal [facility] Comment on above: Performed By: #### B HYDRO GENERATION MANAGER, CMP ####[facility] Hknfdckazr027[address] [place], [place] [address]Dr. Swathi Reis AST [Catalytic activity/Vol] 15 U/L Normal 15-37 [facility] Comment on above: Performed By: #### B HYDRO GENERATION MANAGER, CMP ####[facility] Gipahemfvt909[address] [place], [place] [address]Dr. Swathi Reis Bilirubin [Mass/Vol] 0.3 mg/dL Normal 0.2-1.0 [facility] Comment on above: Performed By: #### B HYDRO GENERATION MANAGER, CMP ####[facility] Aczthffohi9805[address] [place], [place] [address]Dr. Swathi Reis Calcium [Mass/Vol] 9.3 mg/dL Normal 8.5-10.1 [facility] Comment on above: Performed By: #### B HYDRO GENERATION MANAGER, CMP ####[facility] Nuxznpahby8813[address] [place], [place] [address]Dr. Swathi Reis Chloride [Moles/Vol] 104 mmol/L Normal 98-107 [facility] Comment on above: Performed By: #### B HYDRO GENERATION MANAGER, CMP ####[facility] Qwlqpegifk637[address] [place], [place] [address]Dr. Swathi Reis CO2 [Moles/Vol] 30.2 mmol/L Normal 21.0-32.0 The [facility] Comment on above: Performed By: #### B HYDRO GENERATION MANAGER, CMP ####[facility] Xebymhvplc5880[address] [place], [place] [address]Dr. Swathi Reis Creatinine [Mass/Vol] 1.69 mg/dL Critically high 0.55-1.02 [facility] Comment on above: Performed By: #### B HYDRO GENERATION MANAGER, CMP ####[facility] Yiswmqdpmf708[address] [place], [place] [address]Dr. Swathi Reis EGFR-AF UKRAINIAN 36 mL/min/1.73m2 Critically low >=60 [facility] Comment on above: Performed By: #### B HYDRO GENERATION MANAGER, CMP ####[facility] Ddkeacdftz889[address] [place], [place] [address]Dr. Swathi Reis EGFR-NON AF UKRAINIAN 29 mL/min/1.73m2 Critically low >=60 [facility] Comment on above: Performed By: #### B HYDRO GENERATION MANAGER, CMP ####[facility] Pnewziigkk9567[address] [place], [place] [address]Dr. Swathi Reis Globulin (S) [Mass/Vol] 4.0 g/dL Normal [facility] Comment on above: Performed By: #### B HYDRO GENERATION MANAGER, CMP ####[facility] Btjuyzgbee7928[address] [place], [place] [address]Dr. Swathi Reis Glucose [Mass/Vol] 110 mg/dL Critically high 74-106 [facility] Comment on above: Performed By: #### B HYDRO GENERATION MANAGER, CMP ####[facility] Sdqleobajo8937[address] [place], [place] [address]Dr. Swathi Reis Potassium [Moles/Vol] 3.9 mmol/L Normal 3.5-5.1 [facility] Comment on above: Performed By: #### B HYDRO GENERATION MANAGER, CMP ####[facility] Yqebbrlnev267[address] [place], [place] [address]Dr. Swathi Reis Protein [Mass/Vol] 6.4 g/dL Normal 6.4-8.2 [facility] Comment on above: Performed By: #### B HYDRO GENERATION MANAGER, CMP ####[facility] Lzlyuuvihl678[address] [place], [place] [address]Dr. Swathi Reis Sodium [Moles/Vol] 138 mmol/L Normal 136-145 [facility] Comment on above: Performed By: #### B HYDRO GENERATION MANAGER, CMP ####[facility] Laknikpoib8600[address] [place], [place] [address]Dr. Swathi Reis Urea nitrogen [Mass/Vol] 21.0 mg/dL Critically high 7.0-18.0 [facility] Comment on above: Performed By: #### B HYDRO GENERATION MANAGER, CMP ####[facility] Dmegpndcqa790[address] [place], [place] [address]Dr. Swathi Reis Urea nitrogen/Creatinine [Mass ratio] 12.4 mg/mg Normal [facility] Comment on above: Performed By: #### B HYDRO GENERATION MANAGER, CMP ####[facility] Tfymygmdxz0207[address] [place], [place] [address]Dr. Swathi Reis BNPon 07-11-2022 Natriuretic peptide B (Bld) [Mass/Vol] 2516.0 pg/mL Critically high <=1,800.0 [facility] Comment on above: Performed By: #### B HYDRO GENERATION MANAGER, CMP ####[facility] Kjclttcpxg1259[address] [place], [place] [address]Dr. Swathi Reis C. DIFF PCRon 07-11-2022 C. DIFFICILE PCR Positive Critically abnormal NEGATIVE [facility] Comment on above: Performed By: #### C DIFPOC ####[facility] Havywrepqk117[address] [place], [place] [address]Dr. Swathi Reis CBC AUTO DIFFon 07-11-2022 BASO # 0.0 103/ul Normal 0.0-0.1 [facility] Comment on above: Performed By: #### C BC ####[facility] Dpvqrvzgqg8207[address] [place], [place] [address]Dr. Swathi Reis Basophils/100 WBC (Bld) 0.4 % Normal 0.2-2.0 [facility] Comment on above: Performed By: #### C BC ####[facility] Ghxfjlwwfm3828[address] [place], [place] [address]Dr. Swathi Reis EO # 0.2 103/ul Normal 0.0-0.7 [facility] Comment on above: Performed By: #### C BC ####[facility] Zgfzfvdplx39[address] [place], [place] [address]Dr. Swathi Reis Eosinophils/100 WBC (Bld) 2.2 % Normal 0.9-7.0 [facility] Comment on above: Performed By: #### C BC ####[facility] Slyliiilcz[address] [place], [place] [address]Dr. Swathi Reis Erythrocyte distribution width (RBC) [Ratio] 13.4 % Normal 11.0-15.0 [facility] Comment on above: Performed By: #### C BC ####[facility] Xggqwbtcou311[address] [place], [place] [address]Dr. Swathi Reis Hematocrit (Bld) [Volume fraction] 27.0 % Critically low 36.0-48.0 [facility] Comment on above: Performed By: #### C BC ####[facility] Eijzcqibmc8573 [place] [address]Dr. Swathi Reis Hemoglobin (Bld) [Mass/Vol] 8.5 g/dL Critically low 12.0-16.0 [facility] Comment on above: Performed By: #### C BC ####[facility] Kodoqzgeux9218 [place] [id number]. Swathi Reis IG # 0.07 10e3/ul Critically high 0.00-0.03 [facility] Comment on above: Performed By: #### C BC ####[facility] Vdcnrsdtpx3611 [place] [address]Dr. Swathi Reis IG % 0.6 % Critically high 0.0-0.5 [facility] Comment on above: Performed By: #### C BC ####[facility] Kdplfkxeqa7647 [place] [address]Dr. Swathi Reis LYMPH # 1.2 103/ul Normal 1.2-3.8 [facility] Comment on above: Performed By: #### C BC ####[facility] Vvahkgdfma9913 [place] [address]Dr. Swathi Reis Lymphocytes/100 WBC (Bld) 10.5 % Critically low 20.5-60.0 [facility] Comment on above: Performed By: #### C BC ####[facility] Zagybfvshm7231 [place] [address]Dr. Swathi Reis MANUAL DIFF REQ NO Normal [facility] Comment on above: Performed By: #### C BC ####[facility] Uzslmxnmca5840 [place] [address]Dr. Swathi Reis MCH (RBC) [Entitic mass] 29.6 pg Normal 26.7-34.0 [facility] Comment on above: Performed By: #### C BC ####[facility] Pnestnubjt1223[address] [place], [place] [address]Dr. Swathi Reis MCHC (RBC) [Mass/Vol] 31.5 g/dL Normal 29.9-35.2 [facility] Comment on above: Performed By: #### C BC ####[facility] Shuwkyjnqj6064 [place] [address]Dr. Swathi Reis MCV (RBC) [Entitic vol] 94.1 fL Normal 81.0-99.0 [facility] Comment on above: Performed By: #### C BC ####[facility] Yflnlaxmnq6972 [place] [address]Dr. Swathi Reis MONO # 1.1 103/ul Critically high 0.3-0.8 [facility] Comment on above: Performed By: #### C BC ####[facility] Begafbafsa3813[address] [place], [place] [address]Dr. Swathi Reis Monocytes/100 WBC (Bld) 9.9 % Normal 1.7-12.0 [facility] Comment on above: Performed By: #### C BC ####[facility] Glowxbnqfy275[address] [place], [place] [address]Dr. Swathi Reis NEUT # 8.4 103/ul Critically high 1.4-6.5 [facility] Comment on above: Performed By: #### C BC ####[facility] Kciuwudjdj7425[address] [place], [place] [address]Dr. Swathi Reis Neutrophils/100 WBC (Bld) 76.4 % Critically high 43.0-75.0 [facility] Comment on above: Performed By: #### C BC ####[facility] Filbiqadcl3357[address] [place], [place] [address]Dr. Swathi Reis Platelet mean volume (Bld) [Entitic vol] 10.6 fL Normal 9.5-13.5 [facility] Comment on above: Performed By: #### C BC ####[facility] Kbtqibkusb[address] [place], [place] [address]Dr. Swathi Reis PLT 248 103/ul Normal 150-450 [facility] Comment on above: Performed By: #### C BC ####[facility] Elbtvxctmv206[address] [place], [place] [address]Dr. Swathi Reis RBC 2.87 106/ul Critically low 4.20-5.40 [facility] Comment on above: Performed By: #### C BC ####[facility] Jtybogqvqz7825[address] [place], [place] [address]Dr. Swathi Reis WBC 11.0 103/ul Normal 4.0-11.0 [facility] Comment on above: Performed By: #### C BC ####[facility] Cbtinbcpdz337[address] [place], [place] [address]Dr. Swathi Reis GI PANEL (PCR)on 07-11-2022 Adenovirus F 40/41 Not detected Normal NOT DETECTED [facility] Comment on above: Performed By: #### G IPANEL ####[facility] Fojzyfvzyi839[address] [place], [place] [address]Dr. Swathi Reis Astrovirus Not detected Normal NOT DETECTED [facility] Comment on above: Performed By: #### G IPANEL ####[facility] Oirzpjvkwp6[address] [place], [place] [address]Dr. Swathi Reis C. Diff toxin A/B Detected Critically abnormal NOT DETECTED [facility] Comment on above: Performed By: #### G IPANEL ####[facility] Oaanstzzid9623[address] [place], [place] [address]Dr. Swathi Reis Campylobacter Not detected Normal NOT DETECTED [facility] Comment on above: Performed By: #### G IPANEL ####[facility] Xermngxdbm746[address] [place], [place] [address]Dr. Inessatracy Reis Cryptosporidium Not detected Normal NOT DETECTED [facility] Comment on above: Performed By: #### G IPANEL ####[facility] Jtozdkukcm6180[address] [place], [place] [address]Dr. Swathi Reis Cyclos. Cayetanensis Not detected Normal NOT DETECTED [facility] Comment on above: Performed By: #### G IPANEL ####[facility] Igjibjspoh567[address] [place], [place] [address]Dr. Swathi Reis E. Coli O157 Not Applicable Normal Not Applicable [facility] Comment on above: Performed By: #### G IPANEL ####[facility] Lvpsldaaci4685[address] [place], [place] [address]Dr. Inessatracy Reis E. histolytica Not detected Normal NOT DETECTED [facility] Comment on above: Performed By: #### G IPANEL ####[facility] Jxqyytxzcz1278 [place] [address]Dr. Swathi Reis EAEC Not detected Normal NOT DETECTED [facility] Comment on above: Performed By: #### G IPANEL ####[facility] Efoaafofay7611[address] [place], [place] [address]Dr. Swathi Reis EIEC Not detected Normal NOT DETECTED [facility] Comment on above: Performed By: #### G IPANEL ####[facility] Wkizmgqqsn0130[address] [place], [place] [address]Dr. Swathi Reis EPEC Not detected Normal NOT DETECTED [facility] Comment on above: Performed By: #### G IPANEL ####[facility] Efysxoqcxh2888[address] [place], [place] [address]Dr. Swathi Reis ETEC Not detected Normal NOT DETECTED [facility] Comment on above: Performed By: #### G IPANEL ####[facility] Zwhaqtluwx5865[address] [place], [place] [address]Dr. Swathi Reis G. Lamblia Not detected Normal NOT DETECTED [facility] Comment on above: Performed By: #### G IPANEL ####[facility] Ieqrbuqigd2479[address] [place], [place] [address]Dr. Swathi Reis GIPANEL CONTROLS PASSED Normal [facility] Comment on above: Performed By: #### G IPANEL ####[facility] Tzsauqzrns9864[address] [place], [place] [address]Dr. Swathi Reis GIPNL RICHELLE HEADER GI PANEL BACTERIA Normal T [facility] Comment on above: Performed By: #### G IPANEL ####[facility] Unhmoerohy6539[address] [place], [place] [address]Dr. Swathi Reis GIPNLHD ECOLI GI PANEL DIARRHEAGEN IC E.COLI / SHIGELLA Normal [facility] Comment on above: Performed By: #### G IPANEL ####[facility] Gyfuncufio4800[address] [place], [place] [address]Dr. Swathi Reis GIPNLHD INFO SEE BELOW Normal [facility] Comment on above: Result Comment: EAEC - Enteroaggregative E. Coli EPEC- Enteropathogenic E. Coli ETEC- Enterotoxigenic E. Coli lt/st STEC- Shigella-like toxin-producing E. Coli stx1/stx2 EIEC- Shigella/Enteroinvasive E. Coli Performed By: #### G IPANEL ####[facility] Yglqyydfmc7023[address] [place], [place] [address]Dr. Swathi Reis GIPNLHD PARASITES GI PANEL PARASITES Normal [facility] Comment on above: Performed By: #### G IPANEL ####[facility] Lrjddbhdfw7[address] [place], [place] [address]Dr. Inessatracy Reis GIPNLHD VIRUS GI PANEL VIRUSES Normal [facility] Comment on above: Performed By: #### G IPANEL ####[facility] Gbfgqahkac298[address] [place], [place] [address]Dr. Swathi Reis Norovirus GI/GII Not detected Normal NOT DETECTED [facility] Comment on above: Performed By: #### G IPANEL ####[facility] Iiwdzjkbdm270[address] [place], [place] [address]Dr. Swathi Reis P. Shigelloides Not detected Normal NOT DETECTED [facility] Comment on above: Performed By: #### G IPANEL ####[facility] Mibdzdwasd530[address] [place], [place] [address]Dr. Swathi Reis Rotavirus A Not detected Normal NOT DETECTED [facility] Comment on above: Performed By: #### G IPANEL ####[facility] Hqseatdqfr8655[address] [place], [place] [address]Dr. Swathi Reis Salmonella Not detected Normal NOT DETECTED [facility] Comment on above: Performed By: #### G IPANEL ####[facility] Xohagztcnd4797[address] [place], [place] [address]Dr. Swathi Reis Sapovirus Not detected Normal NOT DETECTED [facility] Comment on above: Performed By: #### G IPANEL ####[facility] Jjtncymtar3522[address] [place], [place] [address]Dr. Swathi Reis STEC Detected Critically abnormal NOT DETECTED [facility] Comment on above: Performed By: #### G IPANEL ####[facility] Ciyvkxhhrw0827[address] [place], [place] [address]Dr. Swathi Reis Vibrio Not detected Normal NOT DETECTED [facility] Comment on above: Performed By: #### G IPANEL ####[facility] Uhphpvvucd5602 [place] [address]Dr. Swathi Reis Vibrio Cholera Not detected Normal NOT DETECTED [facility] Comment on above: Performed By: #### G IPANEL ####[facility] Kipzotegwm6026 [place] [address]Dr. Swathi Reis Y. Enterocolitica Not detected Normal NOT DETECTED [facility] Comment on above: Performed By: #### G IPANEL ####[facility] Iowryuhrhk7497 [place] [address]Dr. Swathi Reis POINT OF CARE GLUCOSEon 06-23 Glucose [Mass/Vol] 120 mg/dL Critically high 74-106 [facility] Comment on above: Performed By: #### P OCGLUC ####[facility] Trqepitqxx278[address] [place], [place] [address]Dr. Swathi Reis Glucose [Mass/Vol] 193 mg/dL Critically high 74-106 [facility] Comment on above: Performed By: #### P OCGLUC ####[facility] Kpaipauspz744[address] [place], [place] [address]Dr. Swathi Reis PROF 14(COMP METB)on 022 Albumin [Mass/Vol] 2.4 g/dL Critically low 3.4-5.[address] [facility] Comment on above: Performed By: #### B HYDRO GENERATION MANAGER, CMP ####[facility] Ycdmtbccqm8495[address] [place], [place] [address]Dr. Swathi Reis Albumin/Globulin [Mass ratio] 0.7 {ratio} Normal [facility] Comment on above: Performed By: #### B HYDRO GENERATION MANAGER, CMP ####[facility] Qtvpfykthq5295[address] [place], [place] [address]Dr. Swathi Reis ALP [Catalytic activity/Vol] 70 U/L Normal 46-116 [facility] Comment on above: Performed By: #### B HYDRO GENERATION MANAGER, CMP ####[facility] Uufkcyfihc3414 [place] [address]Dr. Swathi Reis ALT [Catalytic activity/Vol] 12 U/L Critically low 14-59 [facility] Comment on above: Performed By: #### B HYDRO GENERATION MANAGER, CMP ####[facility] Cjzrzedovz8409 [place] [id number]. Swathi Reis Anion gap [Moles/Vol] 8.7 mmol/L Normal [facility] Comment on above: Performed By: #### B HYDRO GENERATION MANAGER, CMP ####[facility] Dhibgzgrcg9533 [place] [address]Dr. Swathi Reis AST [Catalytic activity/Vol] 11 U/L Critically low 15-37 [facility] Comment on above: Performed By: #### B HYDRO GENERATION MANAGER, CMP ####[facility] Xnplogalil8750 [place] [address]Dr. Swathi Reis Bilirubin [Mass/Vol] 0.3 mg/dL Normal 0.2-1.0 [facility] Comment on above: Performed By: #### B HYDRO GENERATION MANAGER, CMP ####[facility] Qogevisjjs[address] [place], [place] [address]Dr. Swathi Reis Calcium [Mass/Vol] 9.1 mg/dL Normal 8.5-10.1 [facility] Comment on above: Performed By: #### B HYDRO GENERATION MANAGER, CMP ####[facility] Vzefgnwjxn[address] [place], [place] [address]Dr. Swathi Chato Chloride [Moles/Vol] 107 mmol/L Normal 98-107 [facility] Comment on above: Performed By: #### B HYDRO GENERATION MANAGER, CMP ####[facility] Lythuelxzm39[address] [place], [place] [address]Dr. Swathi Reis CO2 [Moles/Vol] 27.6 mmol/L Normal 21.0-32.0 [facility] Comment on above: Performed By: #### B HYDRO GENERATION MANAGER, CMP ####[facility] Vlxitbtbgm8[address] [place], [place] [address]Dr. Swathi Reis Creatinine [Mass/Vol] 1.72 mg/dL Critically high 0.55-1.02 [facility] Comment on above: Performed By: #### B HYDRO GENERATION MANAGER, CMP ####[facility] Gtnmurqhbo[address] [place], [place] [address]Dr. Swathi Chato EGFR-AF UKRAINIAN 35 mL/min/1.73m2 Critically low >=60 [facility] Comment on above: Performed By: #### B HYDRO GENERATION MANAGER, CMP ####[facility] Dhjhwttugx8411[address] [place], [place] [address]Dr. Swathi Reis EGFR-NON AF UKRAINIAN 29 mL/min/1.73m2 Critically low >=60 [facility] Comment on above: Performed By: #### B HYDRO GENERATION MANAGER, CMP ####[facility] [facility] Mjwaudamgy[address] [place], [place] [address]Dr. Swathi Chato Globulin (S) [Mass/Vol] 3.6 g/dL Normal [facility] Comment on above: Performed By: #### B HYDRO GENERATION MANAGER, CMP ####[facility] Idfegaufnl[address] [place], [place] [address]Dr. Inessatracy hCato Glucose [Mass/Vol] 119 mg/dL Critically high 74-106 [facility] Comment on above: Performed By: #### B HYDRO GENERATION MANAGER, CMP ####[facility] Wwcikoczow[address] [place], [place] [address]Dr. Swathi Chato Potassium [Moles/Vol] 4.3 mmol/L Normal 3.5-5.1 [facility] Comment on above: Performed By: #### B HYDRO GENERATION MANAGER, CMP ####[facility] Cneuxpbsqf72[address] [place], [place] [address]Dr. Swathi Chato Protein [Mass/Vol] 6.0 g/dL Critically low 6.4-8.[address] [facility] Comment on above: Performed By: #### B HYDRO GENERATION MANAGER, CMP ####[facility] Iqytqamnhm124[address] [place], [place] [address]Dr. Swathi Chato Sodium [Moles/Vol] 139 mmol/L Normal 136-145 [facility] Comment on above: Performed By: #### B HYDRO GENERATION MANAGER, CMP ####[facility] Oryggowmaf[address] [place], [place] [address]Dr. Swathi Chato Urea nitrogen [Mass/Vol] 23.0 mg/dL Critically high 7.0-18.0 [facility] Comment on above: Performed By: #### B HYDRO GENERATION MANAGER, CMP ####[facility] Afoduvrgid[address] [place], [place] [address]Dr. Inessatracy Reis Urea nitrogen/Creatinine [Mass ratio] 13.4 mg/mg Normal [facility] Comment on above: Performed By: #### B HYDRO GENERATION MANAGER, CMP ####[facility] Lmxbxrlcxp[address] [place], [place] [address]Dr. Swathi Reis BNPon 07-10-2022 Natriuretic peptide B (Bld) [Mass/Vol] 2243.0 pg/mL Critically high <=1,800.0 [facility] Comment on above: Performed By: #### B HYDRO GENERATION MANAGER, CMP ####[facility] Pyjogayvxb5[address] [place], [place] [address]Dr. Swathi Chato CBC AUTO DIFFon 07-10-2022 BASO # 0.1 103/ul Normal 0.0-0.1 [facility] Comment on above: Performed By: #### C BC ####[facility] Xgxtduxwjq117[address] [place], [place] [address]Dr. Swathi Reis Basophils/100 WBC (Bld) 0.7 % Normal 0.2-2.0 [facility] Comment on above: Performed By: #### C BC ####[facility] Vzyrhpzwqy[address] [place], [place] [address]Dr. Swathi Reis EO # 0.2 103/ul Normal 0.0-0.7 [facility] Comment on above: Performed By: #### C BC ####[facility] Zuplnkpogk65[address] [place], [place] [address]Dr. Swathi Reis Eosinophils/100 WBC (Bld) 2.1 % Normal 0.9-7.0 [facility] Comment on above: Performed By: #### C BC ####[facility] Kmqrbdtivk58[address] [place], [place] [address]Dr. Swathi Reis Erythrocyte distribution width (RBC) [Ratio] 13.5 % Normal 11.0-15.0 [facility] Comment on above: Performed By: #### C BC ####[facility] Qjynrznyuf[address] [place], [place] [address]Dr. Swathi Reis Hematocrit (Bld) [Volume fraction] 36.6 % Normal 36.0-48.0 [facility] Comment on above: Performed By: #### C BC ####[facility] [address]az[address] [place] [address]Dr. Swathi Reis Hemoglobin (Bld) [Mass/Vol] 11.3 g/dL Critically low 12.0-16.0 [facility] Comment on above: Performed By: #### C BC ####[facility] Soupxkjzxf[address] [place] [address]Dr. Swathi Reis IG # 0.03 10e3/ul Normal 0.00-0.03 [facility] Comment on above: Performed By: #### C BC ####[facility] Ccvjdfyukz35[address] [place] [address]Dr. Swathi Reis IG % 0.4 % Normal 0.0-0.5 [facility] Comment on above: Performed By: #### C BC ####[facility] Khxfsqyqpc6[address] [place] [address]Dr. Swathi Reis LYMPH # 0.8 103/ul Critically low 1.2-3.8 [facility] Comment on above: Performed By: #### C BC ####[facility] Osahqdpnln[address] [place] [address]Dr. Swathi Reis Lymphocytes/100 WBC (Bld) 10.3 % Critically low 20.5-60.0 [facility] Comment on above: Performed By: #### C BC ####[facility] Krsozliiih[address] [place] [address]Dr. Swathi Reis MANUAL DIFF REQ NO Normal [facility] Comment on above: Performed By: #### C BC ####[facility] Zpkauikwqs4[address] [place] [address]Dr. Swathi Reis MCH (RBC) [Entitic mass] 29.1 pg Normal 26.7-34.0 [facility] Comment on above: Performed By: #### C BC ####[facility] Ibyazambbp2463 [place] [address]Dr. Swathi Reis MCHC (RBC) [Mass/Vol] 30.9 g/dL Normal 29.9-35.2 [facility] Comment on above: Performed By: #### C BC ####[facility] Ztbwztbonr7[address] [place] [id number]. Swathi Reis MCV (RBC) [Entitic vol] 94.3 fL Normal 81.0-99.0 [facility] Comment on above: Performed By: #### C BC ####[facility] Xgkehhbhcd0063 [place] [address]Dr. Swathi Reis MONO # 0.7 103/ul Normal 0.3-0.8 [facility] Comment on above: Performed By: #### C BC ####[facility] Spybjcezmf7831 [place] [address]Dr. Swathi Reis Monocytes/100 WBC (Bld) 10.2 % Normal 1.7-12.0 [facility] Comment on above: Performed By: #### C BC ####[facility] Glcrswighc55[address] [place], [place] [address]Dr. Swathi Reis NEUT # 5.5 103/ul Normal 1.4-6.5 [facility] Comment on above: Performed By: #### C BC ####[facility] Jpykrijyqa6[address] [place] [address]Dr. Swathi Chato Neutrophils/100 WBC (Bld) 76.3 % Critically high 43.0-75.0 [facility] Comment on above: Performed By: #### C BC ####[facility] N[address]ofd4[address] [place], [place] [address]Dr. Swathi Chato Platelet mean volume (Bld) [Entitic vol] 10.6 fL Normal 9.5-13.5 [facility] Comment on above: Performed By: #### C BC ####[facility] Emvtsqaplk[address] [place], [place] [address]Dr. Swathi Reis PLT 212 103/ul Normal 150-450 [facility] Comment on above: Performed By: #### C BC ####[facility] Dmtneddbcj5550 [place] [address]Dr. Swathi Reis RBC 3.88 106/ul Critically low 4.20-5.40 [facility] Comment on above: Performed By: #### C BC ####[facility] Bzitwstvoy32[address] [place] [address]Dr. Swathi Reis WBC 7.3 103/ul Normal 4.0-11.0 [facility] Comment on above: Performed By: #### C BC ####[facility] Ocyrpvchyq5[address] [place] [id number]. Swathi Chato POINT OF CARE GLUCOSEon 06-23 Glucose [Mass/Vol] 171 mg/dL Critically high [address] [place] [address] Comment on above: Performed By: #### P OCGLUC ####[facility] Coxgzjnted34[address] [place] [address]Dr. Swathi Reis Glucose [Mass/Vol] 162 mg/dL Critically high [address] [place] [address] Comment on above: Performed By: #### P OCGLUC ####[facility] Fgbxprqrrl1861 [place] [address]Dr. Swathi Chato Glucose [Mass/Vol] 176 mg/dL Critically high [address] [place] [address] Comment on above: Performed By: #### P OCGLUC ####[facility] Pnjcplyslv9[address] [place] [address]Dr. Swathi Reis Glucose [Mass/Vol] 140 mg/dL Critically high [address] [place] [address] Comment on above: Performed By: #### P OCGLUC ####[facility] Botsrjnfvv2896 [place] [address]Dr. Swathi Reis Glucose [Mass/Vol] 37 mg/dL Critically low 74-106 [facility] Comment on above: Result Comment: Will Repeat Test Performed By: #### P OCGLUC ####[facility] Lmxhakmdib[address] [place], [place] [address]Dr. Swathi Reis PROF 14(COMP METB)on 022 Albumin [Mass/Vol] 2.5 g/dL Critically low 3.4-5.[address] [facility] Comment on above: Performed By: #### B HYDRO GENERATION MANAGER, CMP ####[facility] Iivbuogfqq[address] [place], [place] [address]Dr. Swathi Reis Albumin/Globulin [Mass ratio] 0.7 {ratio} Normal [facility] Comment on above: Performed By: #### B HYDRO GENERATION MANAGER, CMP ####[facility] Owjmpuufar26[address] [place] [address]Dr. Swathi Chato ALP [Catalytic activity/Vol] 71 U/L Normal 46-116 [facility] Comment on above: Performed By: #### B HYDRO GENERATION MANAGER, CMP ####[facility] Mvlvsnanin00[address] [place], [place] [address]Dr. Swathi Reis ALT [Catalytic activity/Vol] 12 U/L Critically low 14-59 [facility] Comment on above: Performed By: #### B HYDRO GENERATION MANAGER, CMP ####[facility] Lkidyqcvng6716[address] [place], [place] [address]Dr. Swathi Reis Anion gap [Moles/Vol] 10.1 mmol/L Normal [facility] Comment on above: Performed By: #### B HYDRO GENERATION MANAGER, CMP ####[facility] Gmuvnpchgg0539[address] [place], [place] [address]Dr. Swathi Reis AST [Catalytic activity/Vol] 11 U/L Critically low 15-37 [facility] Comment on above: Performed By: #### B HYDRO GENERATION MANAGER, CMP ####[facility] Acjobbnhgj[address] [place], [place] [address]Dr. Swathi Reis Bilirubin [Mass/Vol] 0.4 mg/dL Normal 0.2-1.0 [facility] Comment on above: Performed By: #### B HYDRO GENERATION MANAGER, CMP ####[facility] Fzyuyegzzo[address] [place], [place] [address]Dr. Swathi Reis Calcium [Mass/Vol] 9.0 mg/dL Normal 8.5-10.1 [facility] Comment on above: Performed By: #### B HYDRO GENERATION MANAGER, CMP ####[facility] Yksqabtiru0840[address] [place], [place] [address]Dr. Swathi Reis Chloride [Moles/Vol] 107 mmol/L Normal 98-107 [facility] Comment on above: Performed By: #### B HYDRO GENERATION MANAGER, CMP ####[facility] Pbshpmmutp07[address] [place], [place] [address]Dr. Swathi Reis CO2 [Moles/Vol] 28.9 mmol/L Normal 21.0-32.0 [facility] Comment on above: Performed By: #### B HYDRO GENERATION MANAGER, CMP ####[facility] Zicapvqmyo2364[address] [place], [place] [address]Dr. Swathi Reis Creatinine [Mass/Vol] 2.01 mg/dL Critically high 0.55-1.02 [facility] Comment on above: Performed By: #### B HYDRO GENERATION MANAGER, CMP ####[facility] Sooaodbckf4017[address] [place], [place] [address]Dr. Swathi Reis EGFR-AF UKRAINIAN 29 mL/min/1.73m2 Critically low >=60 [facility] Comment on above: Performed By: #### B HYDRO GENERATION MANAGER, CMP ####[facility] Azdvefgzdz[address] [place], [place] [address]Dr. Swathi Reis EGFR-NON AF UKRAINIAN 24 mL/min/1.73m2 Critically low >=60 [facility] Comment on above: Performed By: #### B HYDRO GENERATION MANAGER, CMP ####[facility] Xwjlvvomcs88[address] [place], [place] [address]Dr. Swathi Chato Globulin (S) [Mass/Vol] 3.6 g/dL Normal [facility] Comment on above: Performed By: #### B HYDRO GENERATION MANAGER, CMP ####[facility] Hjzxzcjkat58[address] [place], [place] [address]Dr. Swathi Reis Glucose [Mass/Vol] 123 mg/dL Critically high 74-106 [facility] Comment on above: Performed By: #### B HYDRO GENERATION MANAGER, CMP ####[facility] Zkpbvzosns7737[address] [place], [place] [address]Dr. Swathi Reis Potassium [Moles/Vol] 4.0 mmol/L Normal 3.5-5.1 [facility] Comment on above: Performed By: #### B HYDRO GENERATION MANAGER, CMP ####[facility] Jyppkqpzxm95[address] [place], [place] [address]Dr. Swathi Reis Protein [Mass/Vol] 6.1 g/dL Critically low 6.4-8.[address] [facility] Comment on above: Performed By: #### B HYDRO GENERATION MANAGER, CMP ####[facility] Itwlkdlody9[address] [place], [place] [address]Dr. Swathi Reis Sodium [Moles/Vol] 142 mmol/L Normal 136-145 [facility] Comment on above: Performed By: #### B HYDRO GENERATION MANAGER, CMP ####[facility] Ycnejjkfwe2704[address] [place], [place] [address]Dr. Swathi Reis Urea nitrogen [Mass/Vol] 27.0 mg/dL Critically high 7.0-18.0 [facility] Comment on above: Performed By: #### B HYDRO GENERATION MANAGER, CMP ####[facility] Fuuflofsay0229[address] [place], [place] [address]Dr. Swathi Chato Urea nitrogen/Creatinine [Mass ratio] 13.4 mg/mg Normal [facility] Comment on above: Performed By: #### B HYDRO GENERATION MANAGER, CMP ####[facility] Hwgalqsaqw9[address] [place], [place] [address]Dr. Swathi Chato BNPon 07-09-2022 Natriuretic peptide B (Bld) [Mass/Vol] 5933.0 pg/mL Critically high <=1,800.0 [facility] Comment on above: Performed By: #### B HYDRO GENERATION MANAGER, CMP ####[facility] Jgztoqomyd4015[address] [place], [place] [address]Dr. Swathi Chato CBC AUTO DIFFon 07-09-2022 BASO # 0.1 103/ul Normal 0.0-0.1 [facility] Comment on above: Performed By: #### C BC ####[facility] Msdqzlnhzz0928[address] [place], [place] [address]Dr. Swathi Chato Basophils/100 WBC (Bld) 0.5 % Normal 0.2-2.0 [facility] Comment on above: Performed By: #### C BC ####[facility] Qnsohuqcpa9207[address] [place], [place] [address]Dr. Swtahi Reis EO # 0.3 103/ul Normal 0.0-0.7 [facility] Comment on above: Performed By: #### C BC ####[facility] Zqppuzrtbd11[address] [place], [place] [address]Dr. Swathi Reis Eosinophils/100 WBC (Bld) 2.9 % Normal 0.9-7.0 [facility] Comment on above: Performed By: #### C BC ####[facility] Owtkbzifve[address] [place], [place] [address]Dr. Swathi Reis Erythrocyte distribution width (RBC) [Ratio] 13.4 % Normal 11.0-15.0 [facility] Comment on above: Performed By: #### C BC ####[facility] Rvriqtqfbm6550[address] [place], [place] [address]DrOtto Reis Hematocrit (Bld) [Volume fraction] 28.8 % Critically low 36.0-48.0 [facility] Comment on above: Performed By: #### C BC ####[facility] Rpqwgiuvsf4530[address] [place], [place] [address]DrOtto Reis Hemoglobin (Bld) [Mass/Vol] 9.2 g/dL Critically low 12.0-16.0 [facility] Comment on above: Performed By: #### C BC ####[facility] Tzmhiphjar59[address] [place], [place] [address]DrOtto Reis IG # 0.04 10e3/ul Critically high 0.00-0.03 [facility] Comment on above: Performed By: #### C BC ####[facility] Khmezyvrrz[address] [place], [place] [address]DrOtto Reis IG % 0.4 % Normal 0.0-0.5 [facility] Comment on above: Performed By: #### C BC ####[facility] Otvuppkqho1260[address] [place], [place] [address]DrOtto Reis LYMPH # 1.2 103/ul Normal 1.2-3.8 [facility] Comment on above: Performed By: #### C BC ####[facility] Exphzmnxrt386[address] [place], [place] [address]DrOtto Reis Lymphocytes/100 WBC (Bld) 10.9 % Critically low 20.5-60.0 [facility] Comment on above: Performed By: #### C BC ####[facility] Ruhrrhqvst[address] [place], [place] [address]DrOtto Reis MANUAL DIFF REQ NO Normal [facility] Comment on above: Performed By: #### C BC ####[facility] Fbjlvkphus3523 [place] [id number] Reis MCH (RBC) [Entitic mass] 30.0 pg Normal 26.7-34.0 [facility] Comment on above: Performed By: #### C BC ####[facility] Ylzirvidnk26[address] [place] [address]DrOtto Reis MCHC (RBC) [Mass/Vol] 31.9 g/dL Normal 29.9-35.2 [facility] Comment on above: Performed By: #### C BC ####[facility] Cftqxosele84[address] [place], [place] [address]DrOtto Reis MCV (RBC) [Entitic vol] 93.8 fL Normal 81.0-99.0 [facility] Comment on above: Performed By: #### C BC ####[facility] Nhanhabsrs[address] [place], [place] [address]DrOtto Reis MONO # 1.0 103/ul Critically high 0.3-0.8 [facility] Comment on above: Performed By: #### C BC ####[facility] Lskclbyfer[address] [place], [place] [address]DrOtto Reis Monocytes/100 WBC (Bld) 9.6 % Normal 1.7-12.0 [facility] Comment on above: Performed By: #### C BC ####[facility] Ulfflnwkpi2[address] [place], [place] [address]DrOtto Reis NEUT # 8.0 103/ul Critically high 1.4-6.5 [facility] Comment on above: Performed By: #### C BC ####[facility] Sjepetwkax[address] [place], [place] [address]DrOtto Reis Neutrophils/100 WBC (Bld) 75.7 % Critically high 43.0-75.0 [facility] Comment on above: Performed By: #### C BC ####[facility] Pahrocldgn[address] [place], [place] [address]DrOtto Reis Platelet mean volume (Bld) [Entitic vol] 10.6 fL Normal 9.5-13.5 [facility] Comment on above: Performed By: #### C BC ####[facility] [address]wbdvlhte89[address] [place] [id number]. Swathi Reis PLT 307 103/ul Normal 150-450 [facility] Comment on above: Performed By: #### C BC ####[facility] Lcppcbrygm3826 [place] [address]Dr. Swathi Reis RBC 3.07 106/ul Critically low 4.20-5.40 [facility] Comment on above: Performed By: #### C BC ####[facility] Mpzgogtirr2254 [place] [address]Dr. Swathi Reis WBC 10.6 103/ul Normal 4.0-11.0 [facility] Comment on above: Performed By: #### C BC ####[facility] Sioeqdmuev5[address] [place] [address]DrOtto Swathi Reis POINT OF CARE GLUCOSEon 06-23 Glucose [Mass/Vol] 168 mg/dL Critically high 74-106 [facility] Comment on above: Performed By: #### P OCGLUC ####[facility] Bqdtfpphtk9[address] [place] [address]Dr. Swathi Reis Glucose [Mass/Vol] 136 mg/dL Critically high 74-106 [facility] Comment on above: Performed By: #### P OCGLUC ####[facility] Teajnfpbaq9[address] [place] [address]Dr. Swathi Reis Glucose [Mass/Vol] 203 mg/dL Critically high 74-106 [facility] Comment on above: Performed By: #### P OCGLUC ####[facility] Qbywcqvbxp3909 [place] [address]DrOtto Swathi Chato PROF 14(COMP METB)on 022 Albumin [Mass/Vol] 2.6 g/dL Critically low 3.4-5.0 [facility] Comment on above: Performed By: #### B HYDRO GENERATION MANAGER, CMP ####[facility] Qdjpfypkbc8479 [place], [place] [address]Qy. Swathi Reis Albumin/Globulin [Mass ratio] 0.7 {ratio} Normal [facility] Comment on above: Performed By: #### B HYDRO GENERATION MANAGER, CMP ####[facility] Iwgnaqmmxp5[address] [place], [place] [address]Yw. Swathi Reis ALP [Catalytic activity/Vol] 73 U/L Normal 46-116 [facility] Comment on above: Performed By: #### B HYDRO GENERATION MANAGER, CMP ####[facility] Fjcccdrrgm0308 [place] [id number]. Swathi Reis ALT [Catalytic activity/Vol] 12 U/L Critically low 14-59 [facility] Comment on above: Performed By: #### B HYDRO GENERATION MANAGER, CMP ####[facility] Rgccvsawom3252 [place] [id number]. Swathi Reis Anion gap [Moles/Vol] 12.4 mmol/L Normal [facility] Comment on above: Performed By: #### B HYDRO GENERATION MANAGER, CMP ####[facility] Fkahfpaski67[address] [place] [id number]. Swathi Reis AST [Catalytic activity/Vol] 10 U/L Critically low 15-37 [facility] Comment on above: Performed By: #### B HYDRO GENERATION MANAGER, CMP ####[facility] Ftlliaetcm6554 [place] [id number]. Swathi Reis Bilirubin [Mass/Vol] 0.5 mg/dL Normal 0.2-1.0 [facility] Comment on above: Performed By: #### B HYDRO GENERATION MANAGER, CMP ####[facility] Bcgqfpgtgo1275 [place] [id number]. Swathi Reis Calcium [Mass/Vol] 8.7 mg/dL Normal 8.5-10.1 [facility] Comment on above: Performed By: #### B HYDRO GENERATION MANAGER, CMP ####[facility] Lfpxdjmjjm0479 [place] [id number]. Swathi Chato Chloride [Moles/Vol] 105 mmol/L Normal 98-107 [facility] Comment on above: Performed By: #### B HYDRO GENERATION MANAGER, CMP ####[facility] Oxsppmtgtr1326 [place] [id number]. Swathi Reis CO2 [Moles/Vol] 27.3 mmol/L Normal 21.0-32.0 [facility] Comment on above: Performed By: #### B HYDRO GENERATION MANAGER, CMP ####[facility] Zztqfernsf[address] [place], [place] [address]Dr. Swathi Reis Creatinine [Mass/Vol] 2.02 mg/dL Critically high 0.55-1.02 [facility] Comment on above: Performed By: #### B HYDRO GENERATION MANAGER, CMP ####[facility] Ofnxvwbvbv[address] [place], [place] [address]Dr. Inessatracy Chato EGFR-AF UKRAINIAN 29 mL/min/1.73m2 Critically low >=60 [facility] Comment on above: Performed By: #### B HYDRO GENERATION MANAGER, CMP ####[facility] Wwiodwexco[address] [place], [place] [address]Dr. Swathi Reis EGFR-NON AF UKRAINIAN 24 mL/min/1.73m2 Critically low >=60 [facility] Comment on above: Performed By: #### B HYDRO GENERATION MANAGER, CMP ####[facility] Vhzsucrlad[address] [place], [place] [address]Dr. Swathi Reis Globulin (S) [Mass/Vol] 3.6 g/dL Normal [facility] Comment on above: Performed By: #### B HYDRO GENERATION MANAGER, CMP ####[facility] [address]fxlhgsqrb[address] [place] [address]Dr. Swathi Reis Glucose [Mass/Vol] 134 mg/dL Critically high 74-106 [facility] Comment on above: Performed By: #### B HYDRO GENERATION MANAGER, CMP ####[facility] Axbofizyoo[address] [place], [place] [address]Dr. Swathi Reis Potassium [Moles/Vol] 3.7 mmol/L Normal 3.5-5.1 [facility] Comment on above: Performed By: #### B HYDRO GENERATION MANAGER, CMP ####[facility] Tepazcpsfh85[address] [place], [place] [address]Dr. Swathi Reis Protein [Mass/Vol] 6.2 g/dL Critically low 6.4-8.[address] [facility] Comment on above: Performed By: #### B HYDRO GENERATION MANAGER, CMP ####[facility] Kvivxhidbd[address] [place], [place] [address]Dr. Swathi Reis Sodium [Moles/Vol] 141 mmol/L Normal 136-145 [facility] Comment on above: Performed By: #### B HYDRO GENERATION MANAGER, CMP ####[facility] Vgrgtlmbsh[address] [place], [place] [address]Dr. Swathi Chato Urea nitrogen [Mass/Vol] 29.0 mg/dL Critically high 7.0-18.0 [facility] Comment on above: Performed By: #### B HYDRO GENERATION MANAGER, CMP ####[facility] Klxlofsqsr3260[address] [place], [place] [address]Dr. Inessatracy Reis Urea nitrogen/Creatinine [Mass ratio] 14.4 mg/mg Normal [facility] Comment on above: Performed By: #### B HYDRO GENERATION MANAGER, CMP ####[facility] Acnfxhxkyl9[address] [place], [place] [address]Dr. Swathi Chato XR CHEST 2 Von 07-09-2022 XR CHEST [address] [facility] BNPon 07-08-2022 Natriuretic peptide B (Bld) [Mass/Vol] 6044.0 pg/mL Critically high <=1,800.0 [facility] Comment on above: Performed By: #### B HYDRO GENERATION MANAGER, CMP ####[facility] Kenhgwnqan37[address] [place], [place] [address]Dr. Swathi Chato CBC AUTO DIFFon 07-08-2022 BASO # 0.1 103/ul Normal 0.0-0.1 [facility] Comment on above: Performed By: #### C BC ####[facility] Ttldhqhmzp32[address] [place], [place] [address]Dr. Swathi Reis Basophils/100 WBC (Bld) 0.7 % Normal 0.2-2.0 [facility] Comment on above: Performed By: #### C BC ####[facility] Rsqrdiazzf9440[address] [place], [place] [address]Dr. Swathi Reis EO # 0.3 103/ul Normal 0.0-0.7 [facility] Comment on above: Performed By: #### C BC ####[facility] [address] [place] [id number]. Swathi Reis Eosinophils/100 WBC (Bld) 2.9 % Normal 0.9-7.0 [facility] Comment on above: Performed By: #### C BC ####[facility] F[address]axlyfzzv[address] [place] [address]Dr. Swathi Reis Erythrocyte distribution width (RBC) [Ratio] 13.5 % Normal 11.0-15.0 [facility] Comment on above: Performed By: #### C BC ####[facility] Zvnbmxizaj647[address] [place], [place] [address]Dr. Swathi Reis Hematocrit (Bld) [Volume fraction] 29.9 % Critically low 36.0-48.0 [facility] Comment on above: Performed By: #### C BC ####[facility] Ulgvxdcayj7864[address] [place], [place] [address]Dr. Swathi Reis Hemoglobin (Bld) [Mass/Vol] 9.5 g/dL Critically low 12.0-16.0 [facility] Comment on above: Performed By: #### C BC ####[facility] Ecflildwqo3824[address] [place], [place] [address]Dr. Swathi Reis IG # 0.03 10e3/ul Normal 0.00-0.03 [facility] Comment on above: Performed By: #### C BC ####[facility] Mtqwbcktto667[address] [place], [place] [address]Dr. Swathi Reis IG % 0.3 % Normal 0.0-0.5 [facility] Comment on above: Performed By: #### C BC ####[facility] Efvehuxhxg8827[address] [place], [place] [address]Dr. Swathi Reis LYMPH # 0.9 103/ul Critically low 1.2-3.8 [facility] Comment on above: Performed By: #### C BC ####[facility] Pywolccvdv394[address] [place], [place] [address]Dr. Swathi Reis Lymphocytes/100 WBC (Bld) 8.4 % Critically low 20.5-60.0 [facility] Comment on above: Performed By: #### C BC ####[facility] [address] [place] [id number]. Swathi Reis MANUAL DIFF REQ NO Normal [facility] Comment on above: Performed By: #### C BC ####[facility] Qqyrxvggpb9347 [place] [id number]. wSathi Reis MCH (RBC) [Entitic mass] 30.1 pg Normal 26.7-34.0 [facility] Comment on above: Performed By: #### C BC ####[facility] Hefnzjgafv37[address] [place] [id number]. Swathi Reis MCHC (RBC) [Mass/Vol] 31.8 g/dL Normal 29.9-35.2 [facility] Comment on above: Performed By: #### C BC ####[facility] Upkhodfdyt8599[address] [place], [place] [address]Dr. Swathi Reis MCV (RBC) [Entitic vol] 94.6 fL Normal 81.0-99.0 [facility] Comment on above: Performed By: #### C BC ####[facility] Tgyydcigbt[address] [place], [place] [address]Dr. Swathi Reis MONO # 1.0 103/ul Critically high 0.3-0.8 [facility] Comment on above: Performed By: #### C BC ####[facility] Pllzfqvoui[address] [place], [place] [address]Dr. Swathi Reis Monocytes/100 WBC (Bld) 9.5 % Normal 1.7-12.0 [facility] Comment on above: Performed By: #### C BC ####[facility] Ujsvhrcphj[address] [place], [place] [address]Dr. Swathi Reis NEUT # 8.3 103/ul Critically high 1.4-6.5 [facility] Comment on above: Performed By: #### C BC ####[facility] Elespohwjr5[address] [place], [place] [address]Dr. Swathi Reis Neutrophils/100 WBC (Bld) 78.2 % Critically high 43.0-75.0 [facility] Comment on above: Performed By: #### C BC ####[facility] Ypyysmwmir39[address] [place] [id number]. Swathi Reis Platelet mean volume (Bld) [Entitic vol] 10.7 fL Normal 9.5-13.5 [facility] Comment on above: Performed By: #### C BC ####[facility] Ketubegemo[address] [place] [address]Dr. Swathi Reis PLT 273 103/ul Normal 150-450 [facility] Comment on above: Performed By: #### C BC ####[facility] Rahxwuliib1846 [place] [address]Dr. Swathi Reis RBC 3.16 106/ul Critically low 4.20-5.40 [facility] Comment on above: Performed By: #### C BC ####[facility] Fprmqvfndc6460 [place] [address]Dr. Swathi Reis WBC 10.6 103/ul Normal 4.0-11.0 [facility] Comment on above: Performed By: #### C BC ####[facility] Zhvlykhlqf3036 [place] [address]Dr. Swathi Reis POINT OF CARE GLUCOSEon 06-23 Glucose [Mass/Vol] 243 mg/dL Critically high 74-106 [facility] Comment on above: Performed By: #### P OCGLUC ####[facility] Aendzvanzx[address] [place] [address]Dr. Swathi Reis Glucose [Mass/Vol] 161 mg/dL Critically high 74-106 [facility] Comment on above: Performed By: #### P OCGLUC ####[facility] Gshtgluojy26[address] [place] [id number]. Swathi Reis Glucose [Mass/Vol] 186 mg/dL Critically high 74-106 [facility] Comment on above: Performed By: #### P OCGLUC ####[facility] Otxsaqddwb7380 [place] [id number]. Swathi Reis Glucose [Mass/Vol] 168 mg/dL Critically high 74-106 [facility] Comment on above: Performed By: #### P OCGLUC ####[facility] Qaajduvzjo47[address] [place] [address]Dr. Swathi Reis PROF 14(COMP METB)on 022 Albumin [Mass/Vol] 2.5 g/dL Critically low 3.4-5.0 Th e [facility] Comment on above: Performed By: #### B HYDRO GENERATION MANAGER, CMP ####[facility] Iaogagondw2164 [place] [address]Dr. Swathi Reis Albumin/Globulin [Mass ratio] 0.7 {ratio} Normal [facility] Comment on above: Performed By: #### B HYDRO GENERATION MANAGER, CMP ####[facility] Ebutuzvhuc[address] [place], [place] [address]Dr. Swathi Reis ALP [Catalytic activity/Vol] 77 U/L Normal 46-116 [facility] Comment on above: Performed By: #### B HYDRO GENERATION MANAGER, CMP ####[facility] Cnbakxrvex[address] [place], [place] [address]Dr. Swathi Reis ALT [Catalytic activity/Vol] 16 U/L Normal 14-59 [facility] Comment on above: Performed By: #### B HYDRO GENERATION MANAGER, CMP ####[facility] Chzlukruyz[address] [place], [place] [address]Dr. Swathi Reis Anion gap [Moles/Vol] 11.9 mmol/L Normal [facility] Comment on above: Performed By: #### B HYDRO GENERATION MANAGER, CMP ####[facility] Lebiuiulmp74[address] [place] [address]Dr. Swathi Reis AST [Catalytic activity/Vol] 13 U/L Critically low 15-37 [facility] Comment on above: Performed By: #### B HYDRO GENERATION MANAGER, CMP ####[facility] Rlmaizjigu7[address] [place] [address]Dr. Swathi Reis Bilirubin [Mass/Vol] 0.6 mg/dL Normal 0.2-1.0 [facility] Comment on above: Performed By: #### B HYDRO GENERATION MANAGER, CMP ####[facility] Bnksytghth26[address] [place] [address]Dr. Swathi Reis Calcium [Mass/Vol] 8.7 mg/dL Normal 8.5-10.1 [facility] Comment on above: Performed By: #### B HYDRO GENERATION MANAGER, CMP ####[facility] Qmjvwpqcju6[address] [place], [place] [address]Dr. Inessatracy Reis Chloride [Moles/Vol] 105 mmol/L Normal 98-107 [facility] Comment on above: Performed By: #### B HYDRO GENERATION MANAGER, CMP ####[facility] Mvmwiqwtkh156[address] [place], [place] [address]Dr. Inessatracy Chato CO2 [Moles/Vol] 26.6 mmol/L Normal 21.0-32.0 [facility] Comment on above: Performed By: #### B HYDRO GENERATION MANAGER, CMP ####[facility] Zxvgoaerbe7[address] [place], [place] [address]Dr. Swathi Reis Creatinine [Mass/Vol] 1.54 mg/dL Critically high 0.55-1.02 [facility] Comment on above: Performed By: #### B HYDRO GENERATION MANAGER, CMP ####[facility] Rxpybymufr4430[address] [place], [place] [address]Dr. Inessatracy Chato EGFR-AF UKRAINIAN 40 mL/min/1.73m2 Critically low >=60 [facility] Comment on above: Performed By: #### B HYDRO GENERATION MANAGER, CMP ####[facility] Axbwdfhbth[address] [place], [place] [address]Dr. Swathi Reis EGFR-NON AF UKRAINIAN 33 mL/min/1.73m2 Critically low >=60 [facility] Comment on above: Performed By: #### B HYDRO GENERATION MANAGER, CMP ####[facility] Uneezhleod469[address] [place], [place] [address]Dr. Swathi Reis Globulin (S) [Mass/Vol] 3.8 g/dL Normal [facility] Comment on above: Performed By: #### B HYDRO GENERATION MANAGER, CMP ####[facility] Yrbcjsmvus037[address] [place], [place] [address]Dr. Swathi Reis Glucose [Mass/Vol] 153 mg/dL Critically high 74-106 T [facility] Comment on above: Performed By: #### B HYDRO GENERATION MANAGER, CMP ####[facility] Tfogqejnqy[address] [place], [place] [address]Dr. Swathi Reis Potassium [Moles/Vol] 3.5 mmol/L Normal 3.5-5.1 [facility] Comment on above: Performed By: #### B HYDRO GENERATION MANAGER, CMP ####[facility] Anmzgouora[address] [place] [address]Dr. Swathi Reis Protein [Mass/Vol] 6.3 g/dL Critically low 6.4-8.[address] [facility] Comment on above: Performed By: #### B HYDRO GENERATION MANAGER, CMP ####[facility] Xndfvmntis649[address] [place], [place] [address]Dr. Swathi Reis Sodium [Moles/Vol] 140 mmol/L Normal 136-145 [facility] Comment on above: Performed By: #### B HYDRO GENERATION MANAGER, CMP ####[facility] Zpnvngfkie174[address] [place], [place] [address]Dr. Swathi Reis Urea nitrogen [Mass/Vol] 25.0 mg/dL Critically high 7.0-18.0 [facility] Comment on above: Performed By: #### B HYDRO GENERATION MANAGER, CMP ####[facility] Picnxjidga2744[address] [place], [place] [address]Dr. Swathi Reis Urea nitrogen/Creatinine [Mass ratio] 16.2 mg/mg Normal [facility] Comment on above: Performed By: #### B HYDRO GENERATION MANAGER, CMP ####[facility] Tqahlekbhm[address] [place], [place] [address]Dr. Swathi Chato BNPon 07-07-2022 Natriuretic peptide B (Bld) [Mass/Vol] 6413.0 pg/mL Critically high <=1,800.0 [facility] Comment on above: Performed By: #### B HYDRO GENERATION MANAGER, CMP ####[facility] Nfzvoarbir4210[address] [place], [place] [address]Dr. Inessatracy Chato CBC AUTO DIFFon 07-07-2022 BASO # 0.1 103/ul Normal 0.0-0.1 [facility] Comment on above: Performed By: #### C BC ####[facility] Bqtqrczeiq[address] [place], [place] [address]Dr. Swathi Reis Basophils/100 WBC (Bld) 0.4 % Normal 0.2-2.0 [facility] Comment on above: Performed By: #### C BC ####[facility] Vtkumkawfv6207 [place] [address]Dr. Swathi Reis EO # 0.3 103/ul Normal 0.0-0.7 [facility] Comment on above: Performed By: #### C BC ####[facility] Lxndowevqx937[address] [place], [place] [address]Dr. Swathi Reis Eosinophils/100 WBC (Bld) 2.6 % Normal 0.9-7.0 [facility] Comment on above: Performed By: #### C BC ####[facility] Hmyjpaawkx9[address] [place], [place] [address]Dr. Swathi Reis Erythrocyte distribution width (RBC) [Ratio] 13.7 % Normal 11.0-15.0 [facility] Comment on above: Performed By: #### C BC ####[facility] Hfjkndjwrg95[address] [place], [place] [address]Dr. Swathi Reis Hematocrit (Bld) [Volume fraction] 28.9 % Critically low 36.0-48.0 [facility] Comment on above: Performed By: #### C BC ####[facility] Gixqijtjlj[address] [place], [place] [address]Dr. Swathi Reis Hemoglobin (Bld) [Mass/Vol] 9.3 g/dL Critically low 12.0-16.0 [facility] Comment on above: Performed By: #### C BC ####[facility] Cpoldwajbo[address] [place], [place] [address]Dr. Swathi Reis IG # 0.04 10e3/ul Critically high 0.00-0.03 [facility] Comment on above: Performed By: #### C BC ####[facility] Nvficvpwsx42[address] [place], [place] [address]Dr. Swathi Reis IG % 0.4 % Normal 0.0-0.5 [facility] Comment on above: Performed By: #### C BC ####[facility] Iyynqkcpur[address] [place], [place] [address]DrOtto Reis LYMPH # 1.0 103/ul Critically low 1.2-3.8 [facility] Comment on above: Performed By: #### C BC ####[facility] Cosakvurqs4184 [place] [address]Dr. Swathi Reis Lymphocytes/100 WBC (Bld) 8.6 % Critically low 20.5-60.0 [facility] Comment on above: Performed By: #### C BC ####[facility] Shfboteoav2912 [place] [address]DrOtto Reis MANUAL DIFF REQ NO Normal [facility] Comment on above: Performed By: #### C BC ####[facility] Xuwucuoapb3845 [place] [address]Dr. Swathi Reis MCH (RBC) [Entitic mass] 30.0 pg Normal 26.7-34.0 [facility] Comment on above: Performed By: #### C BC ####[facility] Aqichxkxlr314[address] [place], [place] [address]Dr. Swathi Reis MCHC (RBC) [Mass/Vol] 32.2 g/dL Normal 29.9-35.2 [facility] Comment on above: Performed By: #### C BC ####[facility] Awdkampedn[address] [place], [place] [address]DrOtto Reis MCV (RBC) [Entitic vol] 93.2 fL Normal 81.0-99.0 [facility] Comment on above: Performed By: #### C BC ####[facility] Wyphmztdrd[address] [place], [place] [address]Dr. Swathi Reis MONO # 1.0 103/ul Critically high 0.3-0.8 [facility] Comment on above: Performed By: #### C BC ####[facility] Ltbnnzqmhj15[address] [place], [place] [address]DrOtto Reis Monocytes/100 WBC (Bld) 9.0 % Normal 1.7-12.0 [facility] Comment on above: Performed By: #### C BC ####[facility] Vfpafqprlo05[address] [place], [place] [address]Dr. Swathi Reis NEUT # 9.0 103/ul Critically high 1.4-6.5 [facility] Comment on above: Performed By: #### C BC ####[facility] Bflxbbwdyv0708 [place] [address]Dr. Swathi Reis Neutrophils/100 WBC (Bld) 79.0 % Critically high 43.0-75.0 [facility] Comment on above: Performed By: #### C BC ####[facility] Hqpvfjvvkn4291 [place] [address]Dr. Swathi Reis Platelet mean volume (Bld) [Entitic vol] 10.7 fL Normal 9.5-13.5 [facility] Comment on above: Performed By: #### C BC ####[facility] Gfjjbgmlzm8825[address] [place], [place] [address]Dr. Swathi Reis PLT 264 103/ul Normal 150-450 [facility] Comment on above: Performed By: #### C BC ####[facility] Bzsnctoiao[address] [place], [place] [address]Dr. Swathi Reis RBC 3.10 106/ul Critically low 4.20-5.40 [facility] Comment on above: Performed By: #### C BC ####[facility] Ggjgayrqpz76[address] [place], [place] [address]Dr. Swathi Reis WBC 11.4 103/ul Critically high 4.0-11.0 [facility] Comment on above: Performed By: #### C BC ####[facility] Amythrxfwz35[address] [place], [place] [address]Dr. Inessatracy Chato POINT OF CARE GLUCOSEon 06-23 Glucose [Mass/Vol] 298 mg/dL Critically high 74-106 [facility] Comment on above: Performed By: #### P OCGLUC ####[facility] Ddbgzdkbst337[address] [place], [place] [address]Dr. Swathi Reis Glucose [Mass/Vol] 123 mg/dL Critically high 74-106 [facility] Comment on above: Performed By: #### P OCGLUC ####[facility] Wrzdldjycd[address] [place], [place] [address]Dr. Swathi Reis Glucose [Mass/Vol] 263 mg/dL Critically high 74-106 [facility] Comment on above: Performed By: #### P OCGLUC ####[facility] Pgpawmmkbc5686 [place] [address]Dr. Swathi Reis Glucose [Mass/Vol] 151 mg/dL Critically high 74-106 [facility] Comment on above: Performed By: #### P OCGLUC ####[facility] Rktitdcbkt5190 [place] [address]Dr. Swathi Reis PROF 14(COMP METB)on 022 Albumin [Mass/Vol] 2.5 g/dL Critically low 3.4-5.[address] [facility] Comment on above: Performed By: #### B HYDRO GENERATION MANAGER, CMP ####[facility] Sxemfjcchp[address] [place], [place] [address]Dr. Swathi Reis Albumin/Globulin [Mass ratio] 0.7 {ratio} Normal [facility] Comment on above: Performed By: #### B HYDRO GENERATION MANAGER, CMP ####[facility] Bucjytvxue[address] [place], [place] [address]Dr. Swathi Reis ALP [Catalytic activity/Vol] 82 U/L Normal 46-116 [facility] Comment on above: Performed By: #### B HYDRO GENERATION MANAGER, CMP ####[facility] Mhdyzqyqzx402[address] [place], [place] [address]Dr. Swathi Reis ALT [Catalytic activity/Vol] 13 U/L Critically low 14-59 [facility] Comment on above: Performed By: #### B HYDRO GENERATION MANAGER, CMP ####[facility] Kemmdrohjn[address] [place], [place] [address]Dr. Swathi Reis Anion gap [Moles/Vol] 11.5 mmol/L Normal [facility] Comment on above: Performed By: #### B HYDRO GENERATION MANAGER, CMP ####[facility] Dbvcntxvsz[address] [place], [place] [address]Dr. Swathi Reis AST [Catalytic activity/Vol] 12 U/L Critically low 15-37 [facility] Comment on above: Performed By: #### B HYDRO GENERATION MANAGER, CMP ####[facility] Wvsafbmrui[address] [place], [place] [address]Dr. Swathi Reis Bilirubin [Mass/Vol] 0.7 mg/dL Normal 0.2-1.0 [facility] Comment on above: Performed By: #### B HYDRO GENERATION MANAGER, CMP ####[facility] Kdvcpithdp0[address] [place] [address]Dr. Swathi Reis Calcium [Mass/Vol] 8.6 mg/dL Normal 8.5-10.1 [facility] Comment on above: Performed By: #### B HYDRO GENERATION MANAGER, CMP ####[facility] Iqargdqzaf7616 [place] [address]Dr. Swathi Reis Chloride [Moles/Vol] 104 mmol/L Normal 98-107 [facility] Comment on above: Performed By: #### B HYDRO GENERATION MANAGER, CMP ####[facility] Mvfvpnqluj8[address] [place], [place] [address]Dr. Swathi Reis CO2 [Moles/Vol] 26.6 mmol/L Normal 21.0-32.0 [facility] Comment on above: Performed By: #### B HYDRO GENERATION MANAGER, CMP ####[facility] Buheydmyln[address] [place], [place] [address]Dr. Swathi Reis Creatinine [Mass/Vol] 1.56 mg/dL Critically high 0.55-1.02 [facility] Comment on above: Performed By: #### B HYDRO GENERATION MANAGER, CMP ####[facility] Adqaxnwmsz8295 [place] [address]Dr. Swathi Reis EGFR-AF UKRAINIAN 39 mL/min/1.73m2 Critically low >=60 [facility] Comment on above: Performed By: #### B HYDRO GENERATION MANAGER, CMP ####[facility] Nejhovbhaj4746 [place] [address]Dr. Swathi Reis EGFR-NON AF UKRAINIAN 32 mL/min/1.73m2 Critically low >=60 [facility] Comment on above: Performed By: #### B HYDRO GENERATION MANAGER, CMP ####[facility] Wtamriobwt37[address] [place] [address]Dr. Swathi Reis Globulin (S) [Mass/Vol] 3.7 g/dL Normal [facility] Comment on above: Performed By: #### B HYDRO GENERATION MANAGER, CMP ####[facility] Rvpuiwatyw55[address] [place] [address]Dr. Swathi Reis Glucose [Mass/Vol] 149 mg/dL Critically high 74-106 [facility] Comment on above: Performed By: #### B HYDRO GENERATION MANAGER, CMP ####[facility] [address] [place] [address]Dr. Inessatracy Reis Potassium [Moles/Vol] 3.1 mmol/L Critically low 3.5-5.1 [facility] Comment on above: Performed By: #### B HYDRO GENERATION MANAGER, CMP ####[facility] Xrwiltkvea[address] [place], [place] [address]Dr. Inessatracy Reis Protein [Mass/Vol] 6.2 g/dL Critically low 6.4-8.2 [facility] Comment on above: Performed By: #### B HYDRO GENERATION MANAGER, CMP ####[facility] Npujllkkst[address] [place], [place] [address]Dr. Swathi Reis Sodium [Moles/Vol] 139 mmol/L Normal 136-145 [facility] Comment on above: Performed By: #### B HYDRO GENERATION MANAGER, CMP ####[facility] Kftpfsudnt29[address] [place], [place] [address]Dr. Swathi Reis Urea nitrogen [Mass/Vol] 19.0 mg/dL Critically high 7.0-18.0 [facility] Comment on above: Performed By: #### B HYDRO GENERATION MANAGER, CMP ####[facility] Wfzqzmwdhd[address] [place], [place] [address]Dr. Inessatracy Chato Urea nitrogen/Creatinine [Mass ratio] 12.2 mg/mg Normal [facility] Comment on above: Performed By: #### B HYDRO GENERATION MANAGER, CMP ####[facility] Tcepyzoazg5[address] [place], [place] [address]Dr. Swathi Reis BNPon 07-06-2022 Natriuretic peptide B (Bld) [Mass/Vol] 4734.0 pg/mL Critically high <=1,800.0 [facility] Comment on above: Performed By: #### B HYDRO GENERATION MANAGER, CMP ####[facility] Wnayvnwvst72[address] [place], [place] [address]Dr. Swathi Reis CBC AUTO DIFFon 10-14-2022 BASO # 0.0 103/ul Normal 0.0-0.1 [facility] Comment on above: Performed By: #### C BC ####[facility] Bfsorjpdrp[address] [place] [address]Dr. Swathi Reis Basophils/100 WBC (Bld) 0.3 % Normal 0.2-2.0 [facility] Comment on above: Performed By: #### C BC ####[facility] Qvpvesqflv3[address] [place] [address]Dr. Swathi Reis EO # 0.0 103/ul Normal 0.0-0.7 [facility] Comment on above: Performed By: #### C BC ####[facility] Zfdjauuovh454[address] [place], [place] [address]Dr. Swathi Reis Eosinophils/100 WBC (Bld) 0.1 % Critically low 0.9-7.0 [facility] Comment on above: Performed By: #### C BC ####[facility] Vxgznuyejr[address] [place], [place] [address]Dr. Swathi Reis Erythrocyte distribution width (RBC) [Ratio] 13.5 % Normal 11.0-15.0 [facility] Comment on above: Performed By: #### C BC ####[facility] Tlegitqher[address] [place] [address]Dr. Swathi Reis Hematocrit (Bld) [Volume fraction] 29.6 % Critically low 36.0-48.0 [facility] Comment on above: Performed By: #### C BC ####[facility] Svgunrbrtw9664[address] [place], [place] [address]Dr. Swathi Reis Hemoglobin (Bld) [Mass/Vol] 9.6 g/dL Critically low 12.0-16.0 [facility] Comment on above: Performed By: #### C BC ####[facility] Upagkugrhd[address] [place] [address]Dr. Swathi Reis IG # 0.07 10e3/ul Critically high 0.00-0.03 [facility] Comment on above: Performed By: #### C BC ####[facility] Adhbujbuhp[address] [place] [id number]. Swathi Chato IG % 0.5 % Normal 0.0-0.5 [facility] Comment on above: Performed By: #### C BC ####[facility] Jffownlvlf[address] [place] [address]Dr. Swathi Chato LYMPH # 1.4 103/ul Normal 1.2-3.8 [facility] Comment on above: Performed By: #### C BC ####[facility] Zvuedauvhv37[address] [place] [address]Dr. Swathi Chato Lymphocytes/100 WBC (Bld) 9.7 % Critically low 20.5-60.0 [facility] Comment on above: Performed By: #### C BC ####[facility] Ngcyzlluxr35[address] [place], [place] [address]Dr. Inessatracy Reis MANUAL DIFF REQ NO Normal [facility] Comment on above: Performed By: #### C BC ####[facility] Hiolpsyehc45[address] [place] [address]Dr. Swathi Chato MCH (RBC) [Entitic mass] 29.9 pg Normal 26.7-34.0 [facility] Comment on above: Performed By: #### C BC ####[facility] Cyocpvujub[address] [place], [place] [address]Dr. Swathi Reis MCHC (RBC) [Mass/Vol] 32.4 g/dL Normal 29.9-35.2 [facility] Comment on above: Performed By: #### C BC ####[facility] Pfynmppbeb5[address] [place] [address]Dr. Swathi Chato MCV (RBC) [Entitic vol] 92.2 fL Normal 81.0-99.0 [facility] Comment on above: Performed By: #### C BC ####[facility] Panrvzfnkk12[address] [place], [place] [address]Dr. Swathi Reis MONO # 1.3 103/ul Critically high 0.3-0.8 [facility] Comment on above: Performed By: #### C BC ####[facility] Sfuyggjucw[address] [place] [address]Dr. Swathi Reis Monocytes/100 WBC (Bld) 9.4 % Normal 1.7-12.0 [facility] Comment on above: Performed By: #### C BC ####[facility] Xylracromd77[address] [place] [address]Dr. Swathi Reis NEUT # 11.4 103/ul Critically high 1.4-6.5 The [facility] Comment on above: Performed By: #### C BC ####[facility] Rluxsvhhdh5[address] [place] [address]Dr. Swathi Reis Neutrophils/100 WBC (Bld) 80.0 % Critically high 43.0-75.0 [facility] Comment on above: Performed By: #### C BC ####[facility] Bfqutmrvci10[address] [place] [address]Dr. Swathi Reis Platelet mean volume (Bld) [Entitic vol] 10.6 fL Normal 9.5-13.5 [facility] Comment on above: Performed By: #### C BC ####[facility] Bhprovmxca3243 [place] [address]Dr. Swathi Reis PLT 283 103/ul Normal 150-450 [facility] Comment on above: Performed By: #### C BC ####[facility] Zwfeqgizlg5366 [place] [address]Dr. Swathi Reis RBC 3.21 106/ul Critically low 4.20-5.40 [facility] Comment on above: Performed By: #### C BC ####[facility] Vnlxftykkm1164 [place] [address]Dr. Swathi Reis WBC 14.2 103/ul Critically high 4.0-11.0 The [facility] Comment on above: Performed By: #### C BC ####[facility] Lviuvfzcru26[address] [place], [place] [address]Dr. Swathi Reis ECHOCARDIO M/2D COMPLETEon ECHOCARDIO M/2D COMPLETE Normal [facility] POINT OF CARE GLUCOSEon 10- Glucose [Mass/Vol] 227 mg/dL Critically high 74-106 [facility] Comment on above: Performed By: #### P OCGLUC ####[facility] Baorudpjyj[address] [place] [address]Dr. Swathi Reis Glucose [Mass/Vol] 175 mg/dL Critically high 74-106 [facility] Comment on above: Performed By: #### P OCGLUC ####[facility] Owugfjtarf[address] [place] [address]Dr. Swathi Reis PROF 14(COMP METB)on 07-06-2 022 Albumin [Mass/Vol] 2.6 g/dL Critically low 3.4-5.[address] [facility] Comment on above: Performed By: #### B HYDRO GENERATION MANAGER, CMP ####[facility] Bqguxoyggw46[address] [place], [place] [address]Dr. Swathi Reis Albumin/Globulin [Mass ratio] 0.7 {ratio} Normal [facility] Comment on above: Performed By: #### B HYDRO GENERATION MANAGER, CMP ####[facility] Mmuzkbhcll[address] [place], [place] [address]Dr. Swathi Reis ALP [Catalytic activity/Vol] 79 U/L Normal 46-116 [facility] Comment on above: Performed By: #### B HYDRO GENERATION MANAGER, CMP ####[facility] Nzbtmfhbtb[address] [place], [place] [address]Dr. Swathi Reis ALT [Catalytic activity/Vol] 17 U/L Normal 14-59 [facility] Comment on above: Performed By: #### B HYDRO GENERATION MANAGER, CMP ####[facility] Qndlacxroh5029[address] [place], [place] [address]Dr. Swathi Reis Anion gap [Moles/Vol] 11.5 mmol/L Normal [facility] Comment on above: Performed By: #### B HYDRO GENERATION MANAGER, CMP ####[facility] Uhsxdoxuck[address] [place], [place] [address]Dr. Swathi Reis AST [Catalytic activity/Vol] 11 U/L Critically low 15-37 [facility] Comment on above: Performed By: #### B HYDRO GENERATION MANAGER, CMP ####[facility] Etnppzzylv9[address] [place], [place] [address]Dr. Swathi Reis Bilirubin [Mass/Vol] 0.9 mg/dL Normal 0.2-1.0 [facility] Comment on above: Performed By: #### B HYDRO GENERATION MANAGER, CMP ####[facility] Pmdsrdvaoj[address] [place], [place] [address]Dr. Swathi Reis Calcium [Mass/Vol] 8.3 mg/dL Critically low 8.5-10.1 Th e [facility] Comment on above: Performed By: #### B HYDRO GENERATION MANAGER, CMP ####[facility] Vjvfylpalb5[address] [place], [place] [address]Dr. Swathi Resi Chloride [Moles/Vol] 102 mmol/L Normal 98-107 [facility] Comment on above: Performed By: #### B HYDRO GENERATION MANAGER, CMP ####[facility] Mntsemmpyh0512[address] [place], [place] [address]Dr. Inessatracy Reis CO2 [Moles/Vol] 29.5 mmol/L Normal 21.0-32.0 [facility] Comment on above: Performed By: #### B HYDRO GENERATION MANAGER, CMP ####[facility] Xyxouuooub[address] [place], [place] [address]Dr. Swathi Chato Creatinine [Mass/Vol] 1.47 mg/dL Critically high 0.55-1.02 [facility] Comment on above: Performed By: #### B HYDRO GENERATION MANAGER, CMP ####[facility] Skpduemolw05[address] [place], [place] [address]Dr. Inessatracy Chato EGFR-AF UKRAINIAN 42 mL/min/1.73m2 Critically low >=60 [facility] Comment on above: Performed By: #### B HYDRO GENERATION MANAGER, CMP ####[facility] Nanbcgslrr[address] [place], [place] [address]Dr. Inessatracy Chato EGFR-NON AF UKRAINIAN 34 mL/min/1.73m2 Critically low >=60 [facility] Comment on above: Performed By: #### B HYDRO GENERATION MANAGER, CMP ####[facility] Ndpumklobp0467[address] [place], [place] [address]Dr. Swathi Reis Globulin (S) [Mass/Vol] 3.7 g/dL Normal [facility] Comment on above: Performed By: #### B HYDRO GENERATION MANAGER, CMP ####[facility] Bxrtmxyzae6[address] [place] [address]Dr. Swathi Reis Glucose [Mass/Vol] 150 mg/dL Critically high 74-106 T [facility] Comment on above: Performed By: #### B HYDRO GENERATION MANAGER, CMP ####[facility] Sybcgfdwyb[address] [place], [place] [address]Dr. Swathi Reis Potassium [Moles/Vol] 3.0 mmol/L Critically low 3.5-5.1 [facility] Comment on above: Performed By: #### B HYDRO GENERATION MANAGER, CMP ####[facility] Epakkolwhb5569[address] [place], [place] [address]Dr. Swathi Reis Protein [Mass/Vol] 6.3 g/dL Critically low 6.4-8.2 [facility] Comment on above: Performed By: #### B HYDRO GENERATION MANAGER, CMP ####[facility] Bbneumqjsg658[address] [place], [place] [address]Dr. Swathi Reis Sodium [Moles/Vol] 140 mmol/L Normal 136-145 [facility] Comment on above: Performed By: #### B HYDRO GENERATION MANAGER, CMP ####[facility] Fpsjaqigka3900[address] [place], [place] [address]Dr. Swathi Reis Urea nitrogen [Mass/Vol] 16.0 mg/dL Normal 7.0-18.0 [facility] Comment on above: Performed By: #### B HYDRO GENERATION MANAGER, CMP ####[facility] Cswopbhgds[address] [place], [place] [address]Dr. Swathi Reis Urea nitrogen/Creatinine [Mass ratio] 10.9 mg/mg Normal [facility] Comment on above: Performed By: #### B HYDRO GENERATION MANAGER, CMP ####[facility] Zlndfkgpjk[address] [place], [place] [address]Dr. Swathi Reis XR CHEST 2 Von 07-06-2022 XR CHEST [address] [facility] BLOOD GASES BTYon 07-05-2022 02 MODE NASAL CANNULA Normal [facility] Comment on above: Performed By: #### A BG ####[facility] Rqbwjcsrcd9440[address] [place], [place] [address]Dr. Inessatracy Chato ALLENS TEST Positive Normal [facility] Comment on above: Performed By: #### A BG ####[facility] Sciirsoqqj7647 [place] [address]Dr. Swathi Reis Base excess Calc (Bld) [Moles/Vol] 3.1 mmol/L Critically high -2.0-2.0 [facility] Comment on above: Performed By: #### A BG ####[facility] Cvvnvxviwe4810[address] [place], [place] [address]Dr. Swathi Reis BIPAP PRESSURE Normal [facility] Comment on above: Performed By: #### A BG ####[facility] Cihuymuifi0926[address] [place], [place] [address]Dr. Swathi Reis CPAP Normal [facility] Comment on above: Performed By: #### A BG ####[facility] Emsjvodfyr66[address] [place], [place] [address]Dr. Swathi Reis FIO2 Normal [facility] Comment on above: Performed By: #### A BG ####[facility] Gcadlhbdel9023[address] [place], [place] [address]Dr. Swathi Reis HCO3 (Bld) [Moles/Vol] 27.0 mmol/L Critically high 22.0-26.0 [facility] Comment on above: Performed By: #### A BG ####[facility] Agfessxrts[address] [place], [place] [address]Dr. Swathi Reis LPM 5 Normal [facility] Comment on above: Performed By: #### A BG ####[facility] Urtwihivvb[address] [place], [place] [address]Dr. Swathi Reis MINUTE VOLUME Normal [facility] Comment on above: Performed By: #### A BG ####[facility] Sjzpoptjet7[address] [place], [place] [address]Dr. Swathi Reis Oxygen (Bld) [Partial pressure] 71.4 mm[Hg] Critically low 80.0-100.0 [facility] Comment on above: Performed By: #### A BG ####[facility] Nbqansvpwe385[address] [place], [place] [address]Dr. Swathi Reis Oxygen saturation in Blood 95.5 % Normal 95.0-100.0 [facility] Comment on above: Performed By: #### A BG ####[facility] Amhpfdbxxp22[address] [place] [address]Dr. Swathi Reis PCO2 40.2 mmHg Normal 35.0-45.0 [facility] Comment on above: Performed By: #### A BG ####[facility] Vizcrwrjzf7440 [place] [address]Dr. Swathi Reis PEEP [facility] Comment on above: Performed By: #### A BG ####[facility] Amqwsyggwa[address] [place] [address]Dr. Swathi Reis pH (Bld) 7.440 [pH] Normal 7.350-7.450 [facility] Comment on above: Performed By: #### A BG ####[facility] Xkloceobhr4880[address] [place], [place] [address]Dr. Swathi Reis PIP [facility] Comment on above: Performed By: #### A BG ####[facility] Tqieccesxc[address] [place], [place] [address]Dr. Swathi Reis PS [facility] Comment on above: Performed By: #### A BG ####[facility] Apkietcgji10[address] [place], [place] [address]Dr. Swathi Reis PUNCTURE SITE RR [place] [facility] Comment on above: Performed By: #### A BG ####[facility] Dfvtftkjsf[address] [place], [place] [address]Dr. Swathi Reis RATE [facility] Comment on above: Performed By: #### A BG ####[facility] [address]qklkmco[address] [place], [place] [address]Dr. Swathi Reis VENT MODE [facility] Comment on above: Performed By: #### A BG ####[facility] Wchpforgdm18[address] [place], [place] [address]Dr. Swathi Reis [place] [facility] Comment on above: Performed By: #### A BG ####[facility] Zjgdrpqtwm[address] [place], [place] [address]Dr. Swathi Reis BNPon 07-05-2022 Natriuretic peptide B (Bld) [Mass/Vol] 2257.0 pg/mL Critically high <=1,800.0 [facility] Comment on above: Performed By: #### H STROPN, CMP, BNP ####[facility] Uobbjqkncp78[address] [place] [id number]. Swathi Reis CARDIAC TRINA 3-6on 2 CK [Catalytic activity/Vol] 54 U/L Normal 26-192 [facility] Comment on above: Performed By: #### C MREP ####[facility] Krgbhfxwta88[address] [place] [address]Dr. Swathi Reis CK.MB [Mass/Vol] ng/mL Normal <=3.60 [facility] Comment on above: Performed By: #### C MREP ####[facility] Uqketsiwjh6586 [place] [address]Dr. Swathi Reis HSTROP 18.6 pg/mL Normal 4.0-51.3 [facility] Comment on above: Result Comment: CUT- OFF POINTS HAVE BEEN ESTABLISHED BASED ON THE FOURTH UNIVERSAL DEFINITIONS OF MYOCARDIALINFARCTION. THE UPPER REFERENCE LIMIT (URL) OF TROPONIN, DEFINED THE 99TH PERCENTILE OFcTnI DISTRIBUTION IN A REFERENCE POPULATION, HAS BEEN CONFIRMED THE DECISION THRESHOLDFOR NE DIAGNOSIS. Performed By: #### C MREP ####[facility] Pdilotogij9394 [place] [address]Dr. Swathi Reis CK [Catalytic activity/Vol] 38 U/L Normal 26-192 [facility] Comment on above: Performed By: #### C MREP ####[facility] Npyiyxrkqv4241 [place] [address]Dr. Swathi Reis CK.MB [Mass/Vol] 0.51 ng/mL Normal <=3.60 [facility] Comment on above: Performed By: #### C MREP ####[facility] Oeotyphwzx5658 [place] [address]Dr. Swathi Reis HSTROP 16.6 pg/mL Normal 4.0-51.3 [facility] Comment on above: Result Comment: CUT- OFF POINTS HAVE BEEN ESTABLISHED BASED ON THE FOURTH UNIVERSAL DEFINITIONS OF MYOCARDIALINFARCTION. THE UPPER REFERENCE LIMIT (URL) OF TROPONIN, DEFINED THE 99TH PERCENTILE OFcTnI DISTRIBUTION IN A REFERENCE POPULATION, HAS BEEN CONFIRMED THE DECISION THRESHOLDFOR NE DIAGNOSIS. Performed By: #### C MREP ####[facility] Rtwxayidpj3346 [place] [address]Dr. Swathi Reis CBC W MANUAL DIFFon 07-05-20 22 ATYPICAL LYMPH # Normal [facility] Comment on above: Performed By: #### C JAUNMAN ####[facility] Bpcsgieiel5205 [place] [address]Dr. Swathi Reis ATYPICAL LYMPH % Normal [facility] Comment on above: Performed By: #### C NGA ####[facility] Ffzcepvewh[address] [place], [place] [address]Dr. Swathi Reis BAND # 0.4 103/ul Critically high 0.0-0.3 [facility] Comment on above: Performed By: #### C NGA ####[facility] Jlxgsykuca38[address] [place], [place] [address]Dr. Swathi Reis BAND % 2 % Normal 0-5 [facility] Comment on above: Performed By: #### C NGA ####[facility] Dgsbranvem16[address] [place], [place] [address]Dr. Swathi Reis BASOM # 0.00 103/ul Normal 0.00-0.10 [facility] Comment on above: Performed By: #### C NGA ####[facility] Beuekheudb[address] [place], [place] [address]Dr. Swathi Reis BASOM % 0.0 % Critically low 0.2-2.0 [facility] Comment on above: Performed By: #### C NGA ####[facility] Olbzvcfvar[address] [place], [place] [address]Dr. Swathi Reis BLAST # Normal [facility] Comment on above: Performed By: #### C NGA ####[facility] Pcttnkldtd37[address] [place] [address]Dr. Swathi Reis BLAST % Normal [facility] Comment on above: Performed By: #### C NGA ####[facility] Nxfkwaipmf7[address] [place], [place] [address]Oa. Swathi Reis CORRECTED WBC Normal 4.0-11.0 [facility] Comment on above: Performed By: #### C NGA ####[facility] Vcakrcgvqq0843 [place] [id number]. Swathi Reis EOS # 0.00 103/ul Normal 0.00-0.70 [facility] Comment on above: Performed By: #### C NGA ####[facility] Ftqcbhafoj5131 [place] [address]Dr. Swathi Reis EOS% 0.0 % Critically low 0.9-7.0 [facility] Comment on above: Performed By: #### C NGA ####[facility] Trykhhkvca7988 [place] [address]Dr. Swathi Reis HCT 32.7 % Critically low 36.0-48.0 [facility] Comment on above: Performed By: #### C NGA ####[facility] Bjyugqmpyp9747 [place] [address]Dr. Swathi Reis HGB 10.6 g/dl Critically low 12.0-16.0 [facility] Comment on above: Performed By: #### C NGA ####[facility] Kaolaeydil7223 [place] [address]Dr. Swathi Reis LYMPHM # 0.84 103/ul Critically low 1.20-3.80 [facility] Comment on above: Performed By: #### C NGA ####[facility] Tdxkvvnplo5636 [place] [address]Dr. Swathi Reis LYMPHM% 4.0 % Critically low 20.5-60.0 [facility] Comment on above: Performed By: #### C NGA ####[facility] Usjeoskquk2272 [place] [address]Dr. Swathi Reis MCH 30.1 pg Normal 26.7-34.0 [facility] Comment on above: Performed By: #### C NGA ####[facility] Ilgergorhq[address] [place], [place] [address]Dr. Swathi Reis MCHC 32.4 g/dl Normal 29.9-35.2 [facility] Comment on above: Performed By: #### C NGA ####[facility] Hypzbskxop2397 [place] [address]Dr. Swathi Reis MCV 92.9 fL Normal 81.0-99.0 [facility] Comment on above: Performed By: #### C NGA ####[facility] Xgokbptjql6236 [place] [address]Dr. Swathi Reis METAMYELOCYTE # Normal [facility] Comment on above: Performed By: #### C NGA ####[facility] Uszxmbkkfs5895 [place] [id number]. Swathi Reis METAMYELOCYTE % Normal [facility] Comment on above: Performed By: #### C NGA ####[facility] Mixlifaque[address] [place], [place] [address]Dr. Swathi Reis MONOM# 1.88 103/ul Critically high 0.30-0.80 [facility] Comment on above: Performed By: #### C NGA ####[facility] [address] [place] [id number]. Swathi Reis MONOM% 9.0 % Normal 1.7-12.0 [facility] Comment on above: Performed By: #### C NGA ####[facility] Jhyvtsbuxz[address] [place] [id number]. Swathi Reis MPV 10.6 fL Normal 9.5-13.5 [facility] Comment on above: Performed By: #### C NGA ####[facility] Wabjlweiyi[address] [place] [id number]. Swathi Reis MYELOCYTE # Normal [facility] Comment on above: Performed By: #### C NGA ####[facility] Bqfylsnyry[address] [place] [address]Dr. Swathi Reis MYELOCYTE % Normal [facility] Comment on above: Performed By: #### C NGA ####[facility] Uehxcdqcjl[address] [place] [address]Dr. Swathi Reis NRBC Normal [facility] Comment on above: Performed By: #### C NGA ####[facility] [address]fows[address] [place], [place] [address]Is. Swathi Reis PLT 335 103/ul Normal 150-450 [facility] Comment on above: Performed By: #### C NGA ####[facility] Ukkjzkmcbm86[address] [place], [place] [address]Ud. Swathi Reis RBC 3.52 106/ul Critically low 4.20-5.40 [facility] Comment on above: Performed By: #### C NGA ####[facility] Radejomgin[address] [place], [place] [address]Mn. Swathi Reis RDW 13.5 % Normal 11.0-15.0 [facility] Comment on above: Performed By: #### C NGA ####[facility] Spqrqrcgri4[address] [place], [place] [address]Ti. Swathi Reis SEG # 17.76 103/ul Critically high 1.40-6.50 [facility] Comment on above: Performed By: #### C NGA ####[facility] Wumknswsna[address] [place], [place] [address]Tp. Swathi Reis SEG % 85.0 % Critically high 43.0-75.0 [facility] Comment on above: Performed By: #### C NGA ####[facility] Kkahnmciyu46[address] [place], [place] [address]Ej. Swathi Reis WBC 20.9 103/ul Critically high 4.0-11.0 [facility] Comment on above: Performed By: #### C NGA ####[facility] Nsliukgcob[address] [place], [place] [address]Yr. Swathi Reis CTA CHEST WO W CONon 022 CTA CHEST WO W CON Normal [facility] CULTURE BLOODon 07-05-2022 Microscopic examination of blood, culture Culture Observations: NO GROWTH AT 5 DAYS. Normal [facility] Comment on above: Performed By: #### B LDCX2 ####[facility] Idorv[address]kkc[address] [place] [id number]. Yitracy Reis Microscopic examination of blood, culture Culture Observations: NO GROWTH AT 5 DAYS. Normal [facility] Comment on above: Performed By: #### B LDCX1 ####[facility] [address]ht[address] [place] [address]Dr. Swathi Reis Covid-19 PCR ([employer])on 06-23 SARS-CoV-2 (COVID-19) RNA ÓSCAR+probe Ql (Unsp [...] for this test is supported by the [place] [employer] and Human Service's declaration that [...] #### C VDTBH ####[facility] Xv[address]hfsieh[address] [place] [address]Dr. Swathi Reis D-DIMERon 07-05-2022 D-DIMER 2.17 mg/L FEU Critically high <=0.59 [facility] Comment on above: Performed By: #### P T, DDIM, PTT ####[facility] [address]eltd[address] [place] [address]Dr. Inessatracy Reis D-DIMER COMMENTS SEE BELOW Normal [facility] Comment on above: Result Comment: Incr [...] T, DDIM, PTT ####[facility] Tgytytxtvt4[address] [place] [address]Dr. Swathi Reis LACTATE/LACTIC ACIDon 2021 Lactate [Moles/Vol] 2.5 mmol/L Critically high 0.4-1.9 [facility] Comment on above: Performed By: #### L ACT ####[facility] Eaegyafuwl[address] [place] [address]Dr. Swathi Reis Lactate [Moles/Vol] 3.2 mmol/L Critically high 0.4-1.9 [facility] Comment on above: Performed By: #### L ACT ####[facility] Zhrlmqwqsx[address] [place], [place] [address]Dr. Swathi Reis POINT OF CARE GLUCOSEon 06-23 Glucose [Mass/Vol] 179 mg/dL Critically high 74-106 T [facility] Comment on above: Performed By: #### P OCGLUC ####[facility] Wgnuanwgye[address] [place], [place] [address]Dr. Swathi Reis PROF 14(COMP METB)on 022 Albumin [Mass/Vol] 3.2 g/dL Critically low 3.4-5.[address] [facility] Comment on above: Performed By: #### H STROPN, CMP, BNP ####[facility] Juqfmpsrki[address] [place] [address]Dr. Swathi Reis Albumin/Globulin [Mass ratio] 0.8 {ratio} Normal [facility] Comment on above: Performed By: #### H STROPN, CMP, BNP ####[facility] Dkomfzimua[address] [place] [address]Dr. Swathi Reis ALP [Catalytic activity/Vol] 98 U/L Normal 46-116 [facility] Comment on above: Performed By: #### H STROPN, CMP, BNP ####[facility] Cwkzvvuhca[address] [place] [id number]. Swathi Reis ALT [Catalytic activity/Vol] 18 U/L Normal 14-59 [facility] Comment on above: Performed By: #### H STROPN, CMP, BNP ####[facility] Nujmwsmpiy94[address] [place] [address]Dr. Swathi Reis Anion gap [Moles/Vol] 11.5 mmol/L Normal [facility] Comment on above: Performed By: #### H STROPN, CMP, BNP ####[facility] Juxhtltfex[address] [place] [address]Dr. Swathi Reis AST [Catalytic activity/Vol] 16 U/L Normal 15-37 [facility] Comment on above: Performed By: #### H STROPN, CMP, BNP ####[facility] Dfziwhwsxv4[address] [place] [address]Dr. Swathi Reis Bilirubin [Mass/Vol] 0.7 mg/dL Normal 0.2-1.0 [facility] Comment on above: Performed By: #### H STROPN, CMP, BNP ####[facility] Uggveycxwd7[address] [place] [address]Dr. Swathi Reis Calcium [Mass/Vol] 9.3 mg/dL Normal 8.5-10.1 [facility] Comment on above: Performed By: #### H STROPN, CMP, BNP ####[facility] Rjporgekcg[address] [place] [address]Dr. Swathi Reis Chloride [Moles/Vol] 100 mmol/L Normal 98-107 [facility] Comment on above: Performed By: #### H STROPN, CMP, BNP ####[facility] Thbziyrfry[address] [place] [address]Dr. Swathi Reis CO2 [Moles/Vol] 29.5 mmol/L Normal 21.0-32.0 [facility] Comment on above: Performed By: #### H STROPN, CMP, BNP ####[facility] Lmmezrwtqh18[address] [place] [address]Dr. Swathi Reis Creatinine [Mass/Vol] 1.66 mg/dL Critically high 0.55-1.02 [facility] Comment on above: Performed By: #### H STROPN, CMP, BNP ####[facility] Ccbhflvker032[address] [place] [address]Dr. Swathi Reis EGFR-AF UKRAINIAN 36 mL/min/1.73m2 Critically low >=60 [facility] Comment on above: Performed By: #### H STROPN, CMP, BNP ####[facility] Kfygwteiiv62[address] [place] [address]Dr. Swathi Reis EGFR-NON AF UKRAINIAN 30 mL/min/1.73m2 Critically low >=60 [facility] Comment on above: Performed By: #### H STROPN, CMP, BNP ####[facility] Uuhkjkdinf[address] [place], [place] [address]Dr. Swathi Reis Globulin (S) [Mass/Vol] 4.0 g/dL Normal [facility] Comment on above: Performed By: #### H STROPN, CMP, BNP ####[facility] Wxjrbdwwou[address] [place], [place] [address]Dr. Swathi Reis Glucose [Mass/Vol] 247 mg/dL Critically high 74-106 [facility] Comment on above: Performed By: #### H STROPN, CMP, BNP ####[facility] Rhsrhhrepq2[address] [place], [place] [address]Dr. Swathi Reis Potassium [Moles/Vol] 4.0 mmol/L Normal 3.5-5.1 [facility] Comment on above: Performed By: #### H STROPN, CMP, BNP ####[facility] Lnctqkiduk[address] [place], [place] [address]Dr. Swathi Reis Protein [Mass/Vol] 7.2 g/dL Normal 6.4-8.2 [facility] Comment on above: Performed By: #### H STROPN, CMP, BNP ####[facility] Bfswudhssx[address] [place] [address]Dr. Swathi Reis Sodium [Moles/Vol] 137 mmol/L Normal 136-145 [facility] Comment on above: Performed By: #### H STROPN, CMP, BNP ####[facility] Opwxczydwp360[address] [place] [id number]. Swathi Reis Urea nitrogen [Mass/Vol] 22.0 mg/dL Critically high 7.0-18.0 [facility] Comment on above: Performed By: #### H STROPN, CMP, BNP ####[facility] Gnjnxhjqkx[address] [place] [address]Dr. Swathi Reis Urea nitrogen/Creatinine [Mass ratio] 13.3 mg/mg Normal [facility] Comment on above: Performed By: #### H STROPN, CMP, BNP ####[facility] Ggttqhhnkm38[address] [place] [address]Dr. Swathi Reis PROTIMEon 07-05-2022 INR Coag (PPP) [Relative time] 1.10 {INR} Normal [facility] Comment on above: Performed By: #### P T, DDIM, PTT ####[facility] Khzwgywgir[address] [place], [place] [address]Dr. Swathi Reis INR GUIDELINES SEE BELOW Normal [facility] Comment on above: Result Comment: HARRIETT RED INR: 2.0 - 3.0 CONDITIONS NOT LISTED BELOW 2.5 - 3.5 FOR PROSTHETIC HEART VALVE REPLACEMENT 2.5 - 3.5 RECURRENT THROMBOSIS Performed By: #### P T, DDIM, PTT ####[facility] Toxflqqvnj[address] [place], [place] [address]Dr. Swathi Reis PT Coag (PPP) [Time] 11.8 s Critically high 9.0-11.6 [facility] Comment on above: Performed By: #### P T, DDIM, PTT ####[facility] Bkdlfqoorp[address] [place], [place] [address]Dr. Swathi Reis PTTon 07-05-2022 aPTT Coag (Bld) [Time] 27.2 s Normal 22.3-36.2 [facility] Comment on above: Performed By: #### P T, DDIM, PTT ####[facility] Lhwofudofl[address] [place], [place] [address]Dr. Swathi Reis TROPONIN, HIGH SENSITIVITYon 07-05-2022 HSTROP 16.2 pg/mL Normal 4.0-51.3 [facility] Comment on above: Result Comment: CUT- OFF POINTS HAVE BEEN ESTABLISHED BASED ON THE FOURTH UNIVERSAL DEFINITIONS OF MYOCARDIALINFARCTION. THE UPPER REFERENCE LIMIT (URL) OF TROPONIN, DEFINED THE 99TH PERCENTILE OFcTnI DISTRIBUTION IN A REFERENCE POPULATION, HAS BEEN CONFIRMED THE DECISION THRESHOLDFOR NE DIAGNOSIS. Performed By: #### H STROPN, CMP, BNP ####[facility] Hhligvdyrx[address] [place], [place] [address]Oi. Swathi Reis XR CHEST 1 Von 07-05-2022 XR CHEST 1 V Normal [facility] MRI WRIST LT WO CONon 2021 MRI WRIST LT WO CON Normal [facility] XR ANKLE LT MIN 3 Von 2021 XR ANKLE LT MIN 3 V Normal [facility] XR WRIST LT MIN 3 Von 2021 XR WRIST LT MIN 3 V Normal [facility] Progress Noteson 05-19-2022 Surgical Coordinator Authentication Interface Message Text EMERGENCY TRIAGE, TREAT AND TRANSPORT (ET3) DOCUMENTATION OF TELEHEALTH VISIT Date / Time: 05/19/2022 / 1130 Name: Andrew Barros : 1945 SSN: (Not on file) EMS Agency: [facility] [x] Verbal consent obtained [] Implied [...] Completed by: Kristian Mcwilliams MD Normal [facility] CBC AUTO DIFFon 05-07-2022 BASO # 0.1 103/ul Normal 0.0-0.1 [facility] Comment on above: Performed By: #### C BC ####[facility] Zminauveyd[address] [place], [place] [address]DrOtto Reis Basophils/100 WBC (Bld) 0.5 % Normal 0.2-2.0 [facility] Comment on above: Performed By: #### C BC ####[facility] Niviohhsga[address] [place], [place] [address]DrOtto Reis EO # 0.1 103/ul Normal 0.0-0.7 [facility] Comment on above: Performed By: #### C BC ####[facility] Mwyrqhyure[address] [place], [place] [address]DrOtto Reis Eosinophils/100 WBC (Bld) 1.1 % Normal 0.9-7.0 [facility] Comment on above: Performed By: #### C BC ####[facility] Sctmwaurgt[address] [place], [place] [address]DrOtto Reis Erythrocyte distribution width (RBC) [Ratio] 13.2 % Normal 11.0-15.0 [facility] Comment on above: Performed By: #### C BC ####[facility] Mvefpqclpw[address] [place], [place] [address]DrOtto Reis Hematocrit (Bld) [Volume fraction] 40.9 % Normal 36.0-48.0 [facility] Comment on above: Performed By: #### C BC ####[facility] Mvwjufkdln64[address] [place] [address]Dr. Swathi Reis Hemoglobin (Bld) [Mass/Vol] 12.8 g/dL Normal 12.0-16.0 [facility] Comment on above: Performed By: #### C BC ####[facility] Mskzypsgbz3454 [place] [address]Dr. Inessatracy Reis IG # 0.04 10e3/ul Critically high 0.00-0.03 [facility] Comment on above: Performed By: #### C BC ####[facility] Zjzcebvklt[address] [place], [place] [address]Dr. Swathi Reis IG % 0.4 % Normal 0.0-0.5 [facility] Comment on above: Performed By: #### C BC ####[facility] Mxxwqcfizt[address] [place], [place] [address]DrOtto Reis LYMPH # 1.4 103/ul Normal 1.2-3.8 [facility] Comment on above: Performed By: #### C BC ####[facility] Imkpnixxqs140[address] [place], [place] [address]DrOtto Swathi Chato Lymphocytes/100 WBC (Bld) 13.2 % Critically low 20.5-60.0 [facility] Comment on above: Performed By: #### C BC ####[facility] Jyqtmurqjn[address] [place], [place] [address]DrOtto Inessatracy Reis MANUAL DIFF REQ NO Normal [facility] Comment on above: Performed By: #### C BC ####[facility] Ofqypdtqge609[address] [place], [place] [address]Dr. Swathi Reis MCH (RBC) [Entitic mass] 29.5 pg Normal 26.7-34.0 [facility] Comment on above: Performed By: #### C BC ####[facility] Qykyzzleyn026[address] [place], [place] [address]Dr. Swathi Reis MCHC (RBC) [Mass/Vol] 31.3 g/dL Normal 29.9-35.2 [facility] Comment on above: Performed By: #### C BC ####[facility] Lowumgcvta37[address] [place] [address]DrOtto Reis MCV (RBC) [Entitic vol] 94.2 fL Normal 81.0-99.0 [facility] Comment on above: Performed By: #### C BC ####[facility] Wertctisrq[address] [place], [place] [address]DrOtto Reis MONO # 0.9 103/ul Critically high 0.3-0.8 [facility] Comment on above: Performed By: #### C BC ####[facility] Slpekoliro94[address] [place], [place] [address]DrOtto Reis Monocytes/100 WBC (Bld) 8.9 % Normal 1.7-12.0 [facility] Comment on above: Performed By: #### C BC ####[facility] Vlkqkgsdbt[address] [place], [place] [address]DrOtto Reis NEUT # 7.8 103/ul Critically high 1.4-6.5 [facility] Comment on above: Performed By: #### C BC ####[facility] Xhlhvymitw[address] [place], [place] [address]DrOtto Reis Neutrophils/100 WBC (Bld) 75.9 % Critically high 43.0-75.0 [facility] Comment on above: Performed By: #### C BC ####[facility] Fpartrbxpk[address] [place], [place] [address]DrOtto Reis Platelet mean volume (Bld) [Entitic vol] 10.7 fL Normal 9.5-13.5 [facility] Comment on above: Performed By: #### C BC ####[facility] Xxewxhbypt[address] [place], [place] [address]DrOtto Reis PLT 257 103/ul Normal 150-450 [facility] Comment on above: Performed By: #### C BC ####[facility] Ycinngknhz[address] [place], [place] [address]DrOtto Reis RBC 4.34 106/ul Normal 4.20-5.40 [facility] Comment on above: Performed By: #### C BC ####[facility] Wjhgosaqxs6213 [place] [id number]. Swathi Reis WBC 10.2 103/ul Normal 4.0-11.0 [facility] Comment on above: Performed By: #### C BC ####[facility] Xbbczzyxxq0820 [place] [id number]. Swathi Reis Covid-19 PCR ([employer])on 04-23 SARS-CoV-2 (COVID-19) RNA ÓSCAR+probe Ql (Unsp [...] for this test is supported by the [place] [employer] and Human Service's (HHS's) declaration [...] #### C VDTBH ####[facility] Rdvmsqsbcf6234 [place], [place] [address]Oo. Swathi Reis PROF CHEM 8 (BAS METB)on Anion gap [Moles/Vol] 12.0 mmol/L Normal [facility] Comment on above: Performed By: #### B MP ####[facility] Ajoegzyggn1599 [place] [id number]. Swathi Reis Calcium [Mass/Vol] 9.7 mg/dL Normal 8.5-10.1 [facility] Comment on above: Performed By: #### B MP ####[facility] Vlucloowcu[address] [place] [address]Dr. Swathi Chato Chloride [Moles/Vol] 102 mmol/L Normal 98-107 [facility] Comment on above: Performed By: #### B MP ####[facility] Nldocdsece7864 [place] [address]Dr. Swathi Chato CO2 [Moles/Vol] 31.8 mmol/L Normal 21.0-32.0 [facility] Comment on above: Performed By: #### B MP ####[facility] Qzrriazrrj[address] [place], [place] [address]Dr. Inessatracy Chato Creatinine [Mass/Vol] 1.22 mg/dL Critically high 0.55-1.02 [facility] Comment on above: Performed By: #### B MP ####[facility] Jrkpbhveur0[address] [place], [place] [address]Dr. Inessatracy Chato EGFR-AF UKRAINIAN 52 mL/min/1.73m2 Critically low >=60 [facility] Comment on above: Performed By: #### B MP ####[facility] Mkjbqzzppl[address] [place], [place] [address]Dr. Inessatracy Chato EGFR-NON AF UKRAINIAN 43 mL/min/1.73m2 Critically low >=60 [facility] Comment on above: Performed By: #### B MP ####[facility] Hftdbbujut[address] [place], [place] [address]Dr. Inessatracy Chato Glucose [Mass/Vol] 249 mg/dL Critically high 74-106 [facility] Comment on above: Performed By: #### B MP ####[facility] Xrsjprobhu[address] [place], [place] [address]Dr. Swathi Reis Potassium [Moles/Vol] 3.8 mmol/L Normal 3.5-5.1 [facility] Comment on above: Performed By: #### B MP ####[facility] Rlaeykjbxa25[address] [place], [place] [address]Dr. Swathi Reis Sodium [Moles/Vol] 142 mmol/L Normal 136-145 [facility] Comment on above: Performed By: #### B MP ####[facility] Xjlqciqsyi26[address] [place], [place] [address]Dr. Swathi Reis Urea nitrogen [Mass/Vol] 21.0 mg/dL Critically high 7.0-18.0 [facility] Comment on above: Performed By: #### B MP ####[facility] Oouqchsuba[address] [place], [place] [address]Dr. Swathi Reis Urea nitrogen/Creatinine [Mass ratio] 17.2 mg/mg Normal [facility] Comment on above: Performed By: #### B MP ####[facility] Aptbnqedcz311[address] [place], [place] [address]Dr. Swathi Reis CBC AUTO DIFFon 01-12-2022 BASO # 0.1 103/ul Normal 0.0-0.1 [facility] Comment on above: Performed By: #### C BC ####[facility] Uknvbvkyfr[address] [place], [place] [address]Dr. Swathi Reis Basophils/100 WBC (Bld) 0.7 % Normal 0.2-2.0 [facility] Comment on above: Performed By: #### C BC ####[facility] Zgakicpeep[address] [place], [place] [address]Dr. Swathi Reis EO # 0.3 103/ul Normal 0.0-0.7 [facility] Comment on above: Performed By: #### C BC ####[facility] Ajmrgpqsqa[address] [place], [place] [address]Dr. Swathi Reis Eosinophils/100 WBC (Bld) 2.9 % Normal 0.9-7.0 [facility] Comment on above: Performed By: #### C BC ####[facility] Amtshfqigg[address] [place], [place] [address]Dr. Swathi Reis Erythrocyte distribution width (RBC) [Ratio] 13.2 % Normal 11.0-15.0 [facility] Comment on above: Performed By: #### C BC ####[facility] Iyxiqhxria[address] [place], [place] [address]Dr. Swathi Reis Hematocrit (Bld) [Volume fraction] 35.9 % Critically low 36.0-48.0 [facility] Comment on above: Performed By: #### C BC ####[facility] Ucwsorgmpx4859 [place] [address]Dr. Swathi Reis Hemoglobin (Bld) [Mass/Vol] 11.6 g/dL Critically low 12.0-16.0 [facility] Comment on above: Performed By: #### C BC ####[facility] Fsjhyygyrk[address] [place], [place] [address]Dr. Swathi Reis IG # 0.03 10e3/ul Normal 0.00-0.03 [facility] Comment on above: Performed By: #### C BC ####[facility] Gaqwzpipil[address] [place], [place] [address]Dr. Inessatracy Reis IG % 0.4 % Normal 0.0-0.5 [facility] Comment on above: Performed By: #### C BC ####[facility] Tlpkrxzbff[address] [place], [place] [address]DrOtto Inessatracy Reis LYMPH # 1.5 103/ul Normal 1.2-3.8 [facility] Comment on above: Performed By: #### C BC ####[facility] Ivoksiusag[address] [place], [place] [address]DrOtto Inessatracy Reis Lymphocytes/100 WBC (Bld) 17.6 % Critically low 20.5-60.0 [facility] Comment on above: Performed By: #### C BC ####[facility] Lzsahzswml[address] [place], [place] [address]DrOtto Inessatracy Reis MANUAL DIFF REQ NO Normal [facility] Comment on above: Performed By: #### C BC ####[facility] Uulizsloff[address] [place], [place] [address]Dr. Inessatracy Reis MCH (RBC) [Entitic mass] 30.0 pg Normal 26.7-34.0 [facility] Comment on above: Performed By: #### C BC ####[facility] Zpjiogaprn[address] [place], [place] [address]Dr. Inessatracy Reis MCHC (RBC) [Mass/Vol] 32.3 g/dL Normal 29.9-35.2 [facility] Comment on above: Performed By: #### C BC ####[facility] Yoontmqmhe[address] [place], [place] [address]DrOtto Swathi Chato MCV (RBC) [Entitic vol] 92.8 fL Normal 81.0-99.0 [facility] Comment on above: Performed By: #### C BC ####[facility] [address]qavbwxa[address] [place], [place] [address]DrOtto Reis MONO # 1.1 103/ul Critically high 0.3-0.8 [facility] Comment on above: Performed By: #### C BC ####[facility] Zkeufpsatl[address] [place], [place] [address]DrOtto Reis Monocytes/100 WBC (Bld) 12.3 % Critically high 1.7-12.0 [facility] Comment on above: Performed By: #### C BC ####[facility] Fqinkpxiia[address] [place], [place] [address]DrOtto Reis NEUT # 5.7 103/ul Normal 1.4-6.5 [facility] Comment on above: Performed By: #### C BC ####[facility] Wnhrzjmfde[address] [place], [place] [address]DrOtto Reis Neutrophils/100 WBC (Bld) 66.1 % Normal 43.0-75.0 [facility] Comment on above: Performed By: #### C BC ####[facility] Fjhndtcgku025[address] [place], [place] [address]DrOtto Reis Platelet mean volume (Bld) [Entitic vol] 10.9 fL Normal 9.5-13.5 [facility] Comment on above: Performed By: #### C BC ####[facility] Daopbfvumu[address] [place], [place] [address]DrOtto Reis PLT 246 103/ul Normal 150-450 [facility] Comment on above: Performed By: #### C BC ####[facility] Ivytkbvzex[address] [place], [place] [address]DrOtto Reis RBC 3.87 106/ul Critically low 4.20-5.40 [facility] Comment on above: Performed By: #### C BC ####[facility] Gircciqlzw[address] [place] [address]Dr. Swathi Reis WBC 8.6 103/ul Normal 4.0-11.0 [facility] Comment on above: Performed By: #### C BC ####[facility] Umeppzmxfy35[address] [place] [address]Dr. Swathi Reis CRPon 01-12-2022 CRP [Mass/Vol] mg/L Normal <=1.0 [facility] Comment on above: Performed By: #### C MP, CRP ####[facility] Gleyrtfmsy34[address] [place] [address]Dr. Swathi Reis POINT OF CARE GLUCOSEon 12-23 Glucose [Mass/Vol] 95 mg/dL Normal 74-106 [facility] Comment on above: Performed By: #### P OCGLUC ####[facility] Bghdbswnft0178 [place] [address]Dr. Swathi Chato PROF 14(COMP METB)on 022 Albumin [Mass/Vol] 2.9 g/dL Critically low 3.4-5.0 [facility] Comment on above: Performed By: #### C MP, CRP ####[facility] Vzyepqeqyj[address]407 [place] [address]Dr. Swathi Reis Albumin/Globulin [Mass ratio] 0.8 {ratio} Normal [facility] Comment on above: Performed By: #### C MP, CRP ####[facility] Xolpiuqtjq7[address] [place] [address]Dr. Swathi Reis ALP [Catalytic activity/Vol] 91 U/L Normal 46-116 [facility] Comment on above: Performed By: #### C MP, CRP ####[facility] Idegqigtkt0628 [place] [address]Dr. Swathi Reis ALT [Catalytic activity/Vol] 18 U/L Normal 14-59 [facility] Comment on above: Performed By: #### C MP, CRP ####[facility] Qjkcehxbxt697[address] [place], [place] [address]Dr. Swathi Reis Anion gap [Moles/Vol] 9.1 mmol/L Normal [facility] Comment on above: Performed By: #### C MP, CRP ####[facility] Bgcmrsipde1418[address] [place], [place] [address]Dr. Swathi Reis AST [Catalytic activity/Vol] 17 U/L Normal 15-37 [facility] Comment on above: Performed By: #### C MP, CRP ####[facility] Xavkjbutxr7665[address] [place], [place] [address]Dr. Swathi Reis Bilirubin [Mass/Vol] 0.6 mg/dL Normal 0.2-1.3 [facility] Comment on above: Performed By: #### C MP, CRP ####[facility] Ybdttxlppx059[address] [place], [place] [address]Dr. Swathi Reis Calcium [Mass/Vol] 8.6 mg/dL Normal 8.5-10.1 [facility] Comment on above: Performed By: #### C MP, CRP ####[facility] Fehnbrfqrn185[address] [place], [place] [address]Dr. Swathi Reis Chloride [Moles/Vol] 104 mmol/L Normal 98-107 [facility] Comment on above: Performed By: #### C MP, CRP ####[facility] Jtuxvkngdv902[address] [place], [place] [address]Dr. Swathi Reis CO2 [Moles/Vol] 32.1 mmol/L Critically high 22.0-30.0 [facility] Comment on above: Performed By: #### C MP, CRP ####[facility] Wfqscrrvvi9[address] [place], [place] [address]Dr. Swathi Reis Creatinine [Mass/Vol] 0.96 mg/dL Normal 0.52-1.04 [facility] Comment on above: Performed By: #### C MP, CRP ####[facility] Ehkrptwquo843[address] [place], [place] [address]Dr. Swathi Reis EGFR-AF UKRAINIAN >60 Normal >=60 [facility] Comment on above: Performed By: #### C MP, CRP ####[facility] Eoqnierdvl5[address] [place] [id number]. Swathi Reis EGFR-NON AF UKRAINIAN 56 mL/min/1.73m2 Critically low >=60 [facility] Comment on above: Performed By: #### C MP, CRP ####[facility] Xegkwmjwxf5670 [place] [id number]. Swathi Reis Globulin (S) [Mass/Vol] 3.5 g/dL Normal [facility] Comment on above: Performed By: #### C MP, CRP ####[facility] Xenxuoekqb9938 [place] [address]Dr. Swathi Reis Glucose [Mass/Vol] 114 mg/dL Critically high 74-106 [facility] Comment on above: Performed By: #### C MP, CRP ####[facility] Gxgtrmufqx8204 [place] [address]Dr. Swathi Reis Potassium [Moles/Vol] 3.2 mmol/L Critically low 3.4-5.0 [facility] Comment on above: Performed By: #### C MP, CRP ####[facility] Sbpvemaggc6691 [place] [address]Dr. Swathi Reis Protein [Mass/Vol] 6.4 g/dL Normal 6.1-8.2 [facility] Comment on above: Performed By: #### C MP, CRP ####[facility] Bdffvnswke0887 [place] [address]Dr. Swathi Reis Sodium [Moles/Vol] 142 mmol/L Normal 137-145 [facility] Comment on above: Performed By: #### C MP, CRP ####[facility] Ewymmfxxwi9983 [place] [address]Dr. Swathi Reis Urea nitrogen [Mass/Vol] 20.0 mg/dL Critically high 7.0-18.0 [facility] Comment on above: Performed By: #### C MP, CRP ####[facility] Erzjvbtbnr7344 [place] [id number]. Swathi Reis Urea nitrogen/Creatinine [Mass ratio] 20.8 mg/mg Normal [facility] Comment on above: Performed By: #### C MP, CRP ####[facility] Mzzefztvbp50[address] [place], [place] [address]Dr. Swathi Reis T3, TOTAL (TRIIODOTHYRONINE) on 01-12-2022 T3, TOTAL 79 ng/dL Normal 71-180 [facility] Comment on above: Performed By: #### T 3TOTAL ####[facility] Ysgwqlnbls14[address] [place], [place] [address]Dr. Swathi Reis CBC AUTO DIFFon 01-11-2022 BASO # 0.1 103/ul Normal 0.0-0.1 [facility] Comment on above: Performed By: #### C BC ####[facility] Jxaiypatiy264[address] [place], [place] [address]Dr. Swathi Reis Basophils/100 WBC (Bld) 0.5 % Normal 0.2-2.0 [facility] Comment on above: Performed By: #### C BC ####[facility] Uuqwizscha1995[address] [place], [place] [address]Dr. Swathi Reis EO # 0.1 103/ul Normal 0.0-0.7 [facility] Comment on above: Performed By: #### C BC ####[facility] Queomyifje258[address] [place], [place] [address]Dr. Swathi Reis Eosinophils/100 WBC (Bld) 1.1 % Normal 0.9-7.0 [facility] Comment on above: Performed By: #### C BC ####[facility] Mqsdqswidj25[address] [place], [place] [address]Dr. Swathi Reis Erythrocyte distribution width (RBC) [Ratio] 13.1 % Normal 11.0-15.0 [facility] Comment on above: Performed By: #### C BC ####[facility] Zedbffxcmc155[address] [place], [place] [address]Dr. Swathi Reis Hematocrit (Bld) [Volume fraction] 39.1 % Normal 36.0-48.0 [facility] Comment on above: Performed By: #### C BC ####[facility] Cgurwahjwv[address] [place], [place] [address]Dr. Swathi Chato Hemoglobin (Bld) [Mass/Vol] 12.7 g/dL Normal 12.0-16.0 [facility] Comment on above: Performed By: #### C BC ####[facility] Irjlwgvjis6[address] [place] [address]Dr. Inessatracy Reis IG # 0.04 10e3/ul Critically high 0.00-0.03 [facility] Comment on above: Performed By: #### C BC ####[facility] Afgtbxffhe7189 [place] [address]Dr. Swathi Reis IG % 0.4 % Normal 0.0-0.5 [facility] Comment on above: Performed By: #### C BC ####[facility] Qcorunwzhk5031 [place] [address]DrOtto Reis LYMPH # 1.4 103/ul Normal 1.2-3.8 [facility] Comment on above: Performed By: #### C BC ####[facility] Ijafiwzeyw6438 [place] [address]Dr. Swathi Reis Lymphocytes/100 WBC (Bld) 12.4 % Critically low 20.5-60.0 [facility] Comment on above: Performed By: #### C BC ####[facility] Qsjsceafrx8532 [place] [address]Dr. Inessatracy Reis MANUAL DIFF REQ NO Normal [facility] Comment on above: Performed By: #### C BC ####[facility] Dzzrfzwswm2582 [place] [address]DrOtto Swathi Chato MCH (RBC) [Entitic mass] 30.0 pg Normal 26.7-34.0 [facility] Comment on above: Performed By: #### C BC ####[facility] Lwuuhgfjgu8818 [place] [address]DrOtto Swathi Chato MCHC (RBC) [Mass/Vol] 32.5 g/dL Normal 29.9-35.2 [facility] Comment on above: Performed By: #### C BC ####[facility] Vegsfbgxsi2899 [place] [address]Dr. Swathi Reis MCV (RBC) [Entitic vol] 92.4 fL Normal 81.0-99.0 [facility] Comment on above: Performed By: #### C BC ####[facility] Jkqxccozea0202 [place] [address]Dr. Swathi Chato MONO # 1.1 103/ul Critically high 0.3-0.8 [facility] Comment on above: Performed By: #### C BC ####[facility] Cvvflqguki3136 [place] [address]Dr. Swathi Reis Monocytes/100 WBC (Bld) 10.1 % Normal 1.7-12.0 [facility] Comment on above: Performed By: #### C BC ####[facility] Nceoqshhxz00[address] [place], [place] [address]Dr. Inessatracy Chato NEUT # 8.3 103/ul Critically high 1.4-6.5 [facility] Comment on above: Performed By: #### C BC ####[facility] Vxksloxpxm7[address] [place], [place] [address]Dr. Swathi Reis Neutrophils/100 WBC (Bld) 75.5 % Critically high 43.0-75.0 [facility] Comment on above: Performed By: #### C BC ####[facility] Ynmctpwxnw6177 [place] [address]Dr. Swathi Reis Platelet mean volume (Bld) [Entitic vol] 11.3 fL Normal 9.5-13.5 [facility] Comment on above: Performed By: #### C BC ####[facility] Dnewrczjfj6[address] [place], [place] [address]Dr. Swathi Reis PLT 292 103/ul Normal 150-450 [facility] Comment on above: Performed By: #### C BC ####[facility] Rtpinkawpq[address] [place], [place] [address]Dr. Swathi Reis RBC 4.23 106/ul Normal 4.20-5.40 [facility] Comment on above: Performed By: #### C BC ####[facility] Rycuovebbg7024[address] [place], [place] [address]Dr. Swathi Reis WBC 11.0 103/ul Normal 4.0-11.0 [facility] Comment on above: Performed By: #### C BC ####[facility] Rjbdrnzkcx[address] [place], [place] [address]Cf. Swathi Reis CT HEAD WO CONon 01-11-2022 CT HEAD WO CON Normal [facility] CULTURE URINEon 01-11-2022 CULTURE URINE Culture Observations : LIGHT GROWTH OF MIXED GENITAL ELEONORA. NO POTENTIAL PATHOGENS SEEN. Normal [facility] Comment on above: Performed By: #### U RCX ####[facility] Jsynxiobad8[address] [place], [place] [address]Lo. Swathi Reis Covid-19 PCR ([facility])on 12-23 SARS-CoV-2 (COVID-19) RNA ÓSCAR+probe Ql (Unsp [...] for this test is supported by the [place] [employer] and Human Service's declaration that [...] #### C VDTBH ####[facility] Tuhksishda[address] [place], [place] [address]Zy. Swathi Reis EEGon 01-11-2022 EEG Normal [facility] ER URINE PROFILEon Bilirubin Ql (U) Negative Normal NEGATIVE [facility] Comment on above: Performed By: #### E RUR ####[facility] Gymvrgurwf2187 [place] [address]Dr. Swathi Reis Clarity (U) CLEAR Normal CLEAR [facility] Comment on above: Performed By: #### E RUR ####[facility] Npwldmanuw[address] [place], [place] [address]Dr. Swathi Reis Color (U) LT. YELLOW Normal YELLOW [facility] Comment on above: Performed By: #### E RUR ####[facility] Izbuajnwro52[address] [place], [place] [address]Dr. Swathi Reis ERUAHD A micrscopic examina tion will be performed if indicated. Normal [facility] Comment on above: Performed By: #### E RUR ####[facility] Plpfbyojrh[address] [place], [place] [address]Dr. Swathi Reis Glucose Ql (U) Negative Normal NEGATIVE [facility] Comment on above: Performed By: #### E RUR ####[facility] Yleekvpbfm[address] [place], [place] [address]Dr. Swathi Reis Hemoglobin Ql (U) Negative Normal NEGATIVE [facility] Comment on above: Performed By: #### E RUR ####[facility] Tqnxvmdtgp3[address] [place], [place] [address]Dr. Swathi Reis Ketones Ql (U) Negative Normal NEGATIVE [facility] Comment on above: Performed By: #### E RUR ####[facility] Oyxzggeyqm9[address] [place], [place] [address]Dr. Swathi Reis LEUKOCYTES Negative Normal NEGATIVE [facility] Comment on above: Performed By: #### E RUR ####[facility] Nvlxcofnnm5097[address] [place], [place] [address]Dr. Swathi Reis Nitrite Ql (U) Negative Normal NEGATIVE [facility] Comment on above: Performed By: #### E RUR ####[facility] Ojmidxyaon00[address] [place], [place] [address]Dr. Swathi Reis pH (U) 6.0 [pH] Normal 5-9 [facility] Comment on above: Performed By: #### E RUR ####[facility] Kzbueatjer55[address] [place] [address]Dr. Swathi Reis SPEC GRAVITY 1.010 Normal 1.005-<=1.[address] [facility] Comment on above: Performed By: #### E RUR ####[facility] Ycvgzmlznu[address] [place], [place] [address]Dr. Swathi Reis UA PROTEIN Negative Normal NEGATIVE/ TRACE [facility] Comment on above: Performed By: #### E RUR ####[facility] Rlbkmkjosk4[address] [place], [place] [address]Dr. Swathi Reis UR MICRO IND NOT INDICATED Normal [facility] Comment on above: Performed By: #### E RUR ####[facility] Mtjvcqqebw7430[address] [place], [place] [address]Dr. Swathi Reis Urobilinogen Qn (U) 0.2 {Sácnhez'U}/dL Normal 0.2 - 1. 0 [facility] Comment on above: Performed By: #### E RUR ####[facility] Ngfyohlfst[address] [place], [place] [address]Dr. Swathi Reis LACTATE/LACTIC ACIDon 2021 Lactate [Moles/Vol] 0.9 mmol/L Normal 0.7-2.0 [facility] Comment on above: Performed By: #### L ACT ####[facility] Mwptltedxg[address] [place], [place] [address]Dr. Swathi Reis Lactate [Moles/Vol] 0.9 mmol/L Normal 0.7-2.0 The [facility] Comment on above: Performed By: #### L ACT ####[facility] Vrmyuxmpsi[address] [place], [place] [address]Dr. Swathi Reis POINT OF CARE GLUCOSEon 12-23 Glucose [Mass/Vol] 175 mg/dL Critically high 74-106 [facility] Comment on above: Performed By: #### P OCGLUC ####[facility] Atqoiftuaj[address] [place], [place] [address]Dr. Swathi Reis Glucose [Mass/Vol] 116 mg/dL Critically high 74-106 [facility] Comment on above: Performed By: #### P OCGLUC ####[facility] Skcxzalwyt79[address] [place] [address]Dr. Swathi Reis PROF 14(COMP METB)on 022 Albumin [Mass/Vol] 3.3 g/dL Critically low 3.4-5.0 Th e [facility] Comment on above: Performed By: #### H STROPN, CMP ####[facility] Jywvbrspcx1258 [place] [address]Dr. Swathi Reis Albumin/Globulin [Mass ratio] 0.8 {ratio} Normal [facility] Comment on above: Performed By: #### H STROPN, CMP ####[facility] Oiaygoudqg8574 [place] [address]Dr. Swathi Reis ALP [Catalytic activity/Vol] 110 U/L Normal 46-116 [facility] Comment on above: Performed By: #### H STROPN, CMP ####[facility] Zwlmgdfpdi16[address] [place] [address]Dr. Swathi Reis ALT [Catalytic activity/Vol] 20 U/L Normal 14-59 [facility] Comment on above: Performed By: #### H STROPN, CMP ####[facility] Cfjdmjhddt8165 [place] [address]Dr. Swathi Reis Anion gap [Moles/Vol] 15.9 mmol/L Normal [facility] Comment on above: Performed By: #### H STROPN, CMP ####[facility] Gckjvideul5677 [place] [address]Dr. Swathi Reis AST [Catalytic activity/Vol] 24 U/L Normal 15-37 [facility] Comment on above: Performed By: #### H STROPN, CMP ####[facility] Cequllziaa67[address] [place] [address]Dr. Swathi Reis Bilirubin [Mass/Vol] 0.5 mg/dL Normal 0.2-1.3 [facility] Comment on above: Performed By: #### H STROPN, CMP ####[facility] Tfsbrtkoee4497 [place] [address]Dr. Swathi Reis Calcium [Mass/Vol] 9.5 mg/dL Normal 8.5-10.1 [facility] Comment on above: Performed By: #### H RAFFI, CMP ####[facility] Ofaorbkulr5951 [place] [address]Dr. Swathi Reis Chloride [Moles/Vol] 100 mmol/L Normal 98-107 [facility] Comment on above: Performed By: #### H STROPN, CMP ####[facility] Polkprxryu[address] [place] [address]Dr. Inessatracy Reis CO2 [Moles/Vol] 27.8 mmol/L Normal 22.0-30.0 [facility] Comment on above: Performed By: #### H RAFFI, CMP ####[facility] Ofrslikjhl[address] [place], [place] [address]Dr. Inessatracy Reis Creatinine [Mass/Vol] 1.21 mg/dL Critically high 0.52-1.04 [facility] Comment on above: Performed By: #### H RAFFI, CMP ####[facility] Heotjerqoz[address] [place], [place] [address]Dr. Inessatracy Chato EGFR-AF UKRAINIAN 52 mL/min/1.73m2 Critically low >=60 [facility] Comment on above: Performed By: #### H RAFFI, CMP ####[facility] Pfjbhgnsct[address] [place], [place] [address]Dr. Inessatracy Chato EGFR-NON AF UKRAINIAN 43 mL/min/1.73m2 Critically low >=60 [facility] Comment on above: Performed By: #### H STROPN, CMP ####[facility] Hruyhquuzd[address] [place], [place] [address]Dr. Swathi Reis Globulin (S) [Mass/Vol] 4.1 g/dL Normal [facility] Comment on above: Performed By: #### H INGHATPN, CMP ####[facility] Axsofihzox[address] [place], [place] [address]Dr. Swathi Reis Glucose [Mass/Vol] 195 mg/dL Critically high 74-106 T [facility] Comment on above: Performed By: #### H STROPN, CMP ####[facility] Rpupllasbn[address] [place], [place] [address]Dr. Swathi Reis Potassium [Moles/Vol] 3.7 mmol/L Normal 3.4-5.0 [facility] Comment on above: Performed By: #### H RAFFI, CMP ####[facility] Gmksjhqeuy5102 [place] [address]Dr. Swathi Reis Protein [Mass/Vol] 7.4 g/dL Normal 6.1-8.2 [facility] Comment on above: Performed By: #### H RAFFI, CMP ####[facility] Pvhqrqoxoj7442 [place] [address]Dr. Swathi Reis Sodium [Moles/Vol] 140 mmol/L Normal 137-145 [facility] Comment on above: Performed By: #### H RAFFI, CMP ####[facility] Josgwuufep3873 [place] [address]Dr. Swathi Reis Urea nitrogen [Mass/Vol] 22.0 mg/dL Critically high 7.0-18.0 [facility] Comment on above: Performed By: #### H RAFFI, CMP ####[facility] Zvidpviion9563 [place] [address]Dr. Swathi Reis Urea nitrogen/Creatinine [Mass ratio] 18.2 mg/mg Normal [facility] Comment on above: Performed By: #### H RAFFI, CMP ####[facility] Ehgtowzrcv7740 [place] [address]Dr. Swathi Reis T4on 01-11-2022 T4 [Mass/Vol] 9.10 ug/dL Normal 5.53-11.00 [facility] Comment on above: Performed By: #### T SH, T4 ####[facility] Cjavylvkrv[address] [place] [address]Dr. Swathi Reis TROPONIN, HIGH SENSITIVITYon 01-11-2022 HSTROP 13.7 pg/mL Normal 4.0-35.5 [facility] Comment on above: Result Comment: CUT- OFF POINTS HAVE BEEN ESTABLISHED BASED ON THE FOURTH UNIVERSAL DEFINITIONS OF MYOCARDIALINFARCTION. THE UPPER REFERENCE LIMIT (URL) OF TROPONIN, DEFINED THE 99TH PERCENTILE OFcTnI DISTRIBUTION IN A REFERENCE POPULATION, HAS BEEN CONFIRMED THE DECISION THRESHOLDFOR NE DIAGNOSIS. Performed By: #### H STROPN, CMP ####[facility] Fehrdoppfw[address] [place], [place] [address]Dr. Swathi Reis TSHon 01-11-2022 TSH 2.618 uIU/mL Normal 0.470-4.680 [facility] Comment on above: Performed By: #### T SH, T4 ####[facility] Hzlkfcxlur70[address] [place], [place] [address]Dr. Swathi Reis TSH RANGE SEE BELOW Normal [facility] Comment on above: Result Comment: <0.3 4 UIU/ml HYPERTHYROID 0.34-5.60 UIU/ml EUTHYROID >5.60 UIU/ml HYPOTHYROID Performed By: #### T SH, T4 ####[facility] Yfyfgelzam[address] [place], [place] [address]Dr. Sawthi Reis CBC AUTO DIFFon 01-09-2022 BASO # 0.1 103/ul Normal 0.0-0.1 [facility] Comment on above: Performed By: #### C BC ####[facility] Lblehdxxyx[address] [place], [place] [address]Dr. Swathi Reis Basophils/100 WBC (Bld) 0.6 % Normal 0.2-2.0 The [facility] Comment on above: Performed By: #### C BC ####[facility] Qhkqwird[address] [place], [place] [address]Dr. Swathi Reis EO # 0.2 103/ul Normal 0.0-0.7 [facility] Comment on above: Performed By: #### C BC ####[facility] Wkpymkkrnn[address] [place], [place] [address]Dr. Swathi Reis Eosinophils/100 WBC (Bld) 2.7 % Normal 0.9-7.0 [facility] Comment on above: Performed By: #### C BC ####[facility] Hqpgoajvrq[address] [place], [place] [address]Dr. Swathi Reis Erythrocyte distribution width (RBC) [Ratio] 13.2 % Normal 11.0-15.0 [facility] Comment on above: Performed By: #### C BC ####[facility] [address]rs[address] [place] [address]Dr. Swathi Reis Hematocrit (Bld) [Volume fraction] 39.7 % Normal 36.0-48.0 [facility] Comment on above: Performed By: #### C BC ####[facility] Bvuviykqxi[address] [place] [address]Dr. Swathi Reis Hemoglobin (Bld) [Mass/Vol] 12.7 g/dL Normal 12.0-16.0 [facility] Comment on above: Performed By: #### C BC ####[facility] Gbsridofgb[address] [place], [place] [address]Dr. Swathi Reis IG # 0.04 10e3/ul Critically high 0.00-0.03 [facility] Comment on above: Performed By: #### C BC ####[facility] Kejzwuyidc[address] [place], [place] [address]Dr. Inessatracy Reis IG % 0.4 % Normal 0.0-0.5 [facility] Comment on above: Performed By: #### C BC ####[facility] Cxzxosbope[address] [place], [place] [address]Dr. Swathi Chato LYMPH # 1.4 103/ul Normal 1.2-3.8 [facility] Comment on above: Performed By: #### C BC ####[facility] Nmqajoithq[address] [place], [place] [address]Dr. Swathi Chato Lymphocytes/100 WBC (Bld) 15.9 % Critically low 20.5-60.0 [facility] Comment on above: Performed By: #### C BC ####[facility] Jejmpindya[address] [place], [place] [address]Dr. Inessatracy Reis MANUAL DIFF REQ NO Normal [facility] Comment on above: Performed By: #### C BC ####[facility] Uafrqroxjz060[address] [place] [address]Dr. Swathi Chato MCH (RBC) [Entitic mass] 30.0 pg Normal 26.7-34.0 [facility] Comment on above: Performed By: #### C BC ####[facility] K[address]uasaic[address] [place] [id number]. Swathi Chato MCHC (RBC) [Mass/Vol] 32.0 g/dL Normal 29.9-35.2 [facility] Comment on above: Performed By: #### C BC ####[facility] [address]ubgfnutub39[address] [place] [id number]. Swathi Chato MCV (RBC) [Entitic vol] 93.9 fL Normal 81.0-99.0 [facility] Comment on above: Performed By: #### C BC ####[facility] Lalzytpmhf90[address] [place] [id number]. Inessatracy Chato MONO # 0.9 103/ul Critically high 0.3-0.8 [facility] Comment on above: Performed By: #### C BC ####[facility] Qzbvrfuxmt[address] [place], [place] [address]Dr. Swathi Reis Monocytes/100 WBC (Bld) 9.7 % Normal 1.7-12.0 [facility] Comment on above: Performed By: #### C BC ####[facility] F[address]bx[address] [place], [place] [address]Dr. Swathi Chato NEUT # 6.3 103/ul Normal 1.4-6.5 [facility] Comment on above: Performed By: #### C BC ####[facility] Riudjkhljv[address] [place], [place] [address]Dr. Swathi Reis Neutrophils/100 WBC (Bld) 70.7 % Normal 43.0-75.0 [facility] Comment on above: Performed By: #### C BC ####[facility] Grhpxfxvtw[address] [place], [place] [address]Dr. Swathi Reis Platelet mean volume (Bld) [Entitic vol] 10.7 fL Normal 9.5-13.5 [facility] Comment on above: Performed By: #### C BC ####[facility] Vfgc[address]la[address] [place], [place] [address]Dr. Swathi Reis PLT 269 103/ul Normal 150-450 [facility] Comment on above: Performed By: #### C BC ####[facility] Qebwzbplrp9806 [place] [address]Dr. Swathi Reis RBC 4.23 106/ul Normal 4.20-5.40 [facility] Comment on above: Performed By: #### C BC ####[facility] Dffqhanhig2390 [place] [address]Dr. Swathi Reis WBC 8.9 103/ul Normal 4.0-11.0 [facility] Comment on above: Performed By: #### C BC ####[facility] Cwgyynxulk8365 [place] [id number]. Swathi Reis FREE T3on 01-09-2022 FREE T3 2.19 pg/mlL Critically low 2.77-5.27 [facility] Comment on above: Performed By: #### T SH, T4, FT3, LIPID, CMP ####[facility] Wuvjpltjmk45[address] [place] [address]Dr. Swathi Reis GLYCOHEMOGLOBIN A1Con 2021 ADA RECOMMENDATION ADA THERAPEUTIC TARG ET 6.0 - 7.0 ACTION SUGGESTED > 7.[address] [facility] Comment on above: Performed By: #### A 1C ####[facility] Rflamqchsr39[address] [place] [address]Dr. Swathi Reis Glucose [Mass/Vol] 137 mg/dL Normal [facility] Comment on above: Performed By: #### A 1C ####[facility] Feweprujvo2865 [place] [address]Dr. Swathi Reis HbA1c (Bld) [Mass fraction] 6.4 % Critically high <=6.0 [facility] Comment on above: Performed By: #### A 1C ####[facility] Uoipitrlgt8[address] [place] [address]Dr. Swathi Reis LIPID PROFILEon 01-09-2022 CHOL-HDL RATIO NORM SEE BELOW Normal [facility] Comment on above: Result Comment: 3.3 - 4.4 LOW RISK 4.4 - 7.1 AVERAGE RISK 7.1 - 11.0 MODERATE RISK >11.0 HIGH RISK Performed By: #### T SH, T4, FT3, LIPID, CMP ####[facility] Rxmmxuspyo4659 [place] [id number]. Swathi Reis Cholesterol [Mass/Vol] 238 mg/dL Critically high <=200 [facility] Comment on above: Performed By: #### T SH, T4, FT3, LIPID, CMP ####[facility] Eompkukaaj[address] [place] [address]Dr. Swathi Reis Cholesterol in HDL [Mass/Vol] 95 mg/dL Critically high 40-60 [facility] Comment on above: Performed By: #### T SH, T4, FT3, LIPID, CMP ####[facility] Kogwsqegwx[address] [place] [address]Dr. Swathi Reis Cholesterol in LDL [Mass/Vol] 121.0 mg/dL Normal [facility] Comment on above: Performed By: #### T SH, T4, FT3, LIPID, CMP ####[facility] Kpwfmtzuio[address] [place] [address]Dr. Swathi Reis Cholesterol.total/Ch olesterol in HDL [Mass ratio] 2.5 {ratio} Normal [facility] Comment on above: Performed By: #### T SH, T4, FT3, LIPID, CMP ####[facility] Zxirnsromk[address] [place] [address]Dr. Swathi Reis HDL NORMAL > or = 60 mg/dl - LO W CARDIOVASCULAR RISK <40 mg/dl - HIGH CARDIOVASCULAR RISK Normal [facility] Comment on above: Performed By: #### T SH, T4, FT3, LIPID, CMP ####[facility] Bjgzmeuzml22[address] [place] [address]Dr. Swathi Reis LDL CALC NORMAL SEE BELOW Normal [facility] Comment on above: Result Comment: <100 mg/dl OPTIMAL 100 - 129 mg/dl NEAR OR ABOVE OPTIMAL 130 - 159 mg/dl BORDERLINE HIGH 160 - 189 mg/dl HIGH >190 mg/dl VERY HIGH Performed By: #### T SH, T4, FT3, LIPID, CMP ####[facility] Tfougnfkzc[address] [place] [address]Dr. Swathi Reis Triglyceride [Mass/Vol] 110 mg/dL Normal <=150 [facility] Comment on above: Performed By: #### T SH, T4, FT3, LIPID, CMP ####[facility] Tbutabaojy[address] [place] [address]Dr. Swathi Reis VLDL CALC 22.0 mg/dL Normal [facility] Comment on above: Performed By: #### T SH, T4, FT3, LIPID, CMP ####[facility] Qdzuwsqadk1775 [place] [address]Dr. Swathi Reis PROF 14(COMP METB)on 022 Albumin [Mass/Vol] 3.5 g/dL Normal 3.4-5.0 [facility] Comment on above: Performed By: #### T SH, T4, FT3, LIPID, CMP ####[facility] Okwxgnjkrg4328 [place] [address]Dr. Swathi Reis Albumin/Globulin [Mass ratio] 0.9 {ratio} Normal [facility] Comment on above: Performed By: #### T SH, T4, FT3, LIPID, CMP ####[facility] Pmgcgqzgcj80[address] [place] [address]Dr. Swathi Reis ALP [Catalytic activity/Vol] 112 U/L Normal 46-116 [facility] Comment on above: Performed By: #### T SH, T4, FT3, LIPID, CMP ####[facility] Zykrhvjblk5063 [place] [address]Dr. Swathi Reis ALT [Catalytic activity/Vol] 14 U/L Normal 14-59 [facility] Comment on above: Performed By: #### T SH, T4, FT3, LIPID, CMP ####[facility] Aeilvynszx2[address] [place] [address]Dr. Swathi Reis Anion gap [Moles/Vol] 10.4 mmol/L Normal [facility] Comment on above: Performed By: #### T SH, T4, FT3, LIPID, CMP ####[facility] Docwfhhbym3844 [place] [address]Dr. Swathi Reis AST [Catalytic activity/Vol] 18 U/L Normal 15-37 [facility] Comment on above: Performed By: #### T SH, T4, FT3, LIPID, CMP ####[facility] Mnnrkrexem9069 [place] [address]Dr. Swathi Reis Bilirubin [Mass/Vol] 0.6 mg/dL Normal 0.2-1.3 [facility] Comment on above: Performed By: #### T SH, T4, FT3, LIPID, CMP ####[facility] Uypocuxsix[address] [place], [place] [address]Dr. Swathi Reis Calcium [Mass/Vol] 9.4 mg/dL Normal 8.5-10.1 [facility] Comment on above: Performed By: #### T SH, T4, FT3, LIPID, CMP ####[facility] Angrhbjkvv[address] [place], [place] [address]Dr. Swathi Reis Chloride [Moles/Vol] 101 mmol/L Normal 98-107 [facility] Comment on above: Performed By: #### T SH, T4, FT3, LIPID, CMP ####[facility] Ohphiyksox[address] [place], [place] [address]Dr. Swathi Reis CO2 [Moles/Vol] 33.2 mmol/L Critically high 22.0-30.0 [facility] Comment on above: Performed By: #### T SH, T4, FT3, LIPID, CMP ####[facility] Sdshoemudf[address] [place], [place] [address]Dr. Swathi Reis Creatinine [Mass/Vol] 1.13 mg/dL Critically high 0.52-1.04 [facility] Comment on above: Performed By: #### T SH, T4, FT3, LIPID, CMP ####[facility] Jrbrvrsfrh[address] [place], [place] [address]Dr. Swathi Reis EGFR-AF UKRAINIAN 57 mL/min/1.73m2 Critically low >=60 [facility] Comment on above: Performed By: #### T SH, T4, FT3, LIPID, CMP ####[facility] Xjzukrvrvk[address] [place], [place] [address]Dr. Swathi Reis EGFR-NON AF UKRAINIAN 47 mL/min/1.73m2 Critically low >=60 [facility] Comment on above: Performed By: #### T SH, T4, FT3, LIPID, CMP ####[facility] Ghlrvotcdq2248 [place] [address]Dr. Swathi Reis Globulin (S) [Mass/Vol] 4.1 g/dL Normal [facility] Comment on above: Performed By: #### T SH, T4, FT3, LIPID, CMP ####[facility] Lvlksyxndr1588 [place] [address]Dr. Swathi Reis Glucose [Mass/Vol] 144 mg/dL Critically high 74-106 [facility] Comment on above: Performed By: #### T SH, T4, FT3, LIPID, CMP ####[facility] Ocbchjqmpb[address] [place], [place] [address]Dr. Swathi Reis Potassium [Moles/Vol] 3.6 mmol/L Normal 3.4-5.0 [facility] Comment on above: Performed By: #### T SH, T4, FT3, LIPID, CMP ####[facility] Zyyprbftiz[address] [place], [place] [address]Dr. Swathi Reis Protein [Mass/Vol] 7.6 g/dL Normal 6.1-8.2 [facility] Comment on above: Performed By: #### T SH, T4, FT3, LIPID, CMP ####[facility] Mdpmvcorei3[address] [place] [address]Dr. Swathi Reis Sodium [Moles/Vol] 141 mmol/L Normal 137-145 [facility] Comment on above: Performed By: #### T SH, T4, FT3, LIPID, CMP ####[facility] Yojevjcklg0252 [place] [address]Dr. Swathi Reis Urea nitrogen [Mass/Vol] 22.0 mg/dL Critically high 7.0-18.0 [facility] Comment on above: Performed By: #### T SH, T4, FT3, LIPID, CMP ####[facility] Dgbtzkgdqq7296 [place] [address]Dr. Swathi Reis Urea nitrogen/Creatinine [Mass ratio] 19.5 mg/mg Normal [facility] Comment on above: Performed By: #### T SH, T4, FT3, LIPID, CMP ####[facility] Huwjxetidu7696 [place] [address]Dr. Swathi Reis T4on 01-09-2022 T4 [Mass/Vol] 8.80 ug/dL Normal 5.53-11.00 [facility] Comment on above: Performed By: #### T SH, T4, FT3, LIPID, CMP ####[facility] Jnoouesqzl[address] [place], [place] [address]Dr. Swathi Reis TSHon 01-09-2022 TSH 3.176 uIU/mL Normal 0.470-4.680 [facility] Comment on above: Performed By: #### T SH, T4, FT3, LIPID, CMP ####[facility] Kynxfaeyfg[address] [place], [place] [address]Dr. Inessatracy Reis TSH RANGE SEE BELOW Normal [facility] Comment on above: Result Comment: <0.3 4 UIU/ml HYPERTHYROID 0.34-5.60 UIU/ml EUTHYROID >5.60 UIU/ml HYPOTHYROID Performed By: #### T SH, T4, FT3, LIPID, CMP ####[facility] Yuhzeuldfd[address] [place], [place] [address]Dr. Swathi Reis VITAMIN D 25 OHon 01-09-2022 VIT D 25-OH 64.4 ng/mL Normal [facility] Comment on above: Performed By: #### V ITAD ####[facility] Cabgcfplwv[address] [place], [place] [address]Dr. Swathi Reis VIT D RANGES SEE BELOW Normal [facility] Comment on above: Result Comment: <20 ng/mL Vit D deficient 20 - <30 ng/mL Vit D insufficient 30 - 100 ng/mL Vit D sufficient >100 ng/mL Potential Toxicity Performed By: #### V ITAD ####[facility] Ybhzplecpx[address] [place], [place] [address]Dr. Swathi Reis MG MAMM DIAGNOSTIC 3D GISELE CA Don 01-05-2022 MG MAMM DIAGNOSTIC 3D GISELE CAD Normal [facility] CT head/brain wo conon 12-27 CT head/brain wo con [facility] Main [place] [address] [place] [address] CT Scan Report Signed Patient: Andrew Barros MR#: [id number] : 1945 Acct:[id number] Age/Sex: 76 / F ADM Date: 12/27/21 Loc: CT Room: Type: [facility] Attending Dr: Brayden Hernandez MD Ordering Provider: [...] Cameron Jr., M.D.12/27/2021 1:17 PM Dictation Location: [place] [address] Transcribed By: [facility] 12/27/21 1317 Dictated By: Tex Cameron Jr, MD 12/27/21 1310 Signed By: 12/27/21 131 Normal [facility] FRESH FROZ PLASMAon 11-24-19 FRESH FROZ PLASMA Normal [facility] Comment on above: Performed By: #### F ####[facility] Njncwt[address] [place], [place] [address] Re[address] head/brain wo conon 11-17 CT head/brain wo con [facility] Main [place] [address] [place] [address] [address] [address] Scan Report Signed Patient: Andrew Barros MR#: [id number] : 1945 Acct:[id number] Age/Sex: 76 / F ADM Date: 11/17/21 Loc: CT Room: Type: [facility] Attending Dr: Brayden Hernandez MD Ordering Provider: [...] Henny Mckeon M.D.11/17/2021 1:35 PM Dictation Location: [place] [address] Transcribed By: SOLOMON 11/17/21 1331 Dictated By: Henny Mckeon MD 11/17/21 1330 Signed By: 11/17/21 1335 [facility] Basic Metabolic Panelon 10-24 Calcium [Mass/Vol] 8.9 mg/dL Normal 8.2-10.2 [facility] Comment on above: Performed By: #### P T #### [facility] [address] [place] [id number] [facility] Chloride [Moles/Vol] 94 mmol/L Low 95-114 [facility] Comment on above: Performed By: #### P T #### [facility] [address] CO2 [Moles/Vol] 22.6 mmol/L Normal 22.0-30.0 [facility] Comment on above: Performed By: #### P T #### [address] Creatinine [Mass/Vol] 1.38 mg/dL High 0.44-1.03 [facility] Comment on above: Performed By: #### P T #### [address] Creatinine Clr Calc Pharmacy 29.48 [facility] Comment on above: Result Comment: PERF ORMED BY: [place] [address] PATHOLOGIST FRONT END TECHNICIAN ADRIAN ROBERTSON M.D. Performed By: #### P T #### [address] Estimated GFR ( Rafaela 45 [facility] Comment on above: Result Comment: GFR estimated reference range: According to KDOQI guidelines, <60 ml/min/1.73m2 is sufficient to diagnose a patient with chronic kidney disease. Performed By: #### P T #### [place] [id number] [place] Estimated GFR (Non- Am 37 [facility] Comment on above: Performed By: #### P T #### [place] [address] [place] Glucose [Mass/Vol] 297 mg/dL High 70-100 [facility] Comment on above: Result Comment: [place] om Glucose Reference Range is dependent on time and content of last meal. Glucose of more than 200 mg/dL in a nonstressed, ambulatory subject supports the diagnosis of Diabetes Mellitus. ADA recommended reference range Performed By: #### P T #### [facility] [address] [place] [id number] [place] Potassium [Moles/Vol] 3.7 mmol/L Normal 3.5-5.1 [facility] Comment on above: Performed By: #### P T #### [facility] [address] [place] [address] [place] Sodium [Moles/Vol] 132 mmol/L Low 136-146 [facility] Comment on above: Performed By: #### P T #### [facility] [address] [place] [address] [place] Urea nitrogen [Mass/Vol] 19 mg/dL Normal 9-23 [facility] Comment on above: Performed By: #### P T #### [facility] [address] [place] [id number] [place] Creatinine and Glomerular fi ltration rate.predicted panel (S/P/Bld)Ordered By: Shaka Echavarria on 11-11-2021 Creatinine [Mass/Vol] 1.38 mg/dL 0.44-1.03 [facility] Estimated glomerular filtrat ion rate (GFR) non- AmericanOrdered By: Shaka Echavarria on 11-11-2021 GFR/1.73 sq M.predicted among non-blacks MDRD (S/P/Bld) [Vol rate/Area] 37 mL/Min [facility] Glucose Glucometer (BldC) [M ass/Vol]Ordered By: Shaka Echavarria on 11-11-2021 Glucose [Mass/Vol] 233 mg/dL [facility] Comment on above: Random Glucose Refer ence Range is dependent on time and content of last meal. Glucose of more than 200 mg/dL in a nonstressed, ambulatory subject supports the diagnosis of Diabetes Mellitus. Glucose Poct Glucometerson 0 11-11-2021 Commemt1 Glu2: Cleaned Meter Normal [facility] Comment on above: Result Comment: PERF ORMED BY: [place] [address] PATHOLOGIST FRONT END TECHNICIAN ADRIAN ROBERTSON M.D. Performed By: #### P T #### [facility] [address] [place] [address] Glucose [Mass/Vol] 233 mg/dL Normal [facility] Comment on above: Result Comment: [place] om Glucose Reference Range is dependent on time and content of last meal. Glucose of more than 200 mg/dL in a nonstressed, ambulatory subject supports the diagnosis of Diabetes Mellitus. Performed By: #### P T #### [facility] [address] [place] [address] Commemt1 Glu2: Cleaned Meter [facility] Comment on above: Result Comment: PERF ORMED BY: [place] [address] PATHOLOGIST FRONT END TECHNICIAN ADRIAN ROBERTSON M.D. Performed By: #### P T #### [address] Glucose [Mass/Vol] 127 mg/dL Normal [facility] Comment on above: Result Comment: [place] om Glucose Reference Range is dependent on time and content of last meal. Glucose of more than 200 mg/dL in a nonstressed, ambulatory subject supports the diagnosis of Diabetes Mellitus. Performed By: #### P T #### [facility] [address] [place] [address] No Panel InformationOrdered By: Shaka Echavarria on 11-11-2021 Bedside Glucose Comment Glu2: cleaned meter [facility] Estimated GFR () 45 mL/Min [facility] Comment on above: GFR estimated refere nce range: According to KDOQI guidelines, <60 ml/min/1.73m2 is sufficient to diagnose a patient with chronic kidney disease. Pharmacy Creatinine Clearance (Chem 29.48 [facility] Serum or plasma calcium missy urement (mass/volume)Ordered By: Shaka Echavarria on 11-11-2021 Calcium [Mass/Vol] 8.9 mg/dL 8.2-10.2 [facility] Serum or plasma chloride ken surement (moles/volume)Ordered By: Shaka Echavarria on 11-11-2021 Chloride [Moles/Vol] 94 mmol/L 95-114 [facility] Serum or plasma glucose missy urement (mass/volume)Ordered By: Shaka Echavarria on 11-11-2021 Glucose [Mass/Vol] 297 mg/dL 70-100 [facility] Comment on above: Delta: 179 on -0432ADA recommended reference rangeRandom Glucose Reference Range is dependent on time and content of last meal. Glucose of more than 200 mg/dL in a nonstressed, ambulatory subject supports the diagnosis of Diabetes Mellitus. Serum or plasma potassium me asurement (moles/volume)Ordered By: Shaka Echavarria on 11-11-2021 Potassium [Moles/Vol] 3.7 mmol/L 3.5-5.1 [facility] Serum or plasma sodium measu rement (moles/volume)Ordered By: Shaka Echavarria on 11-11-2021 Sodium [Moles/Vol] 132 mmol/L 136-146 [facility] Serum or plasma total carbon dioxide measurement (moles/volume)Ordered By: Shaka Echavarria on 11-11-2021 CO2 [Moles/Vol] 22.6 mmol/L 22.0-30.0 [facility] Serum or plasma urea nitroge n measurement (mass/volume)Ordered By: Shaka Echavarria on 11-11-2021 Urea nitrogen [Mass/Vol] 19 mg/dL 9-23 [facility] Basic Metabolic Panelon 10-24 Calcium [Mass/Vol] 8.9 mg/dL Normal 8.2-10.2 [facility] Comment on above: Performed By: #### B MP, PT, CBC #### [facility] [address] Chloride [Moles/Vol] 96 mmol/L Normal 95-114 [facility] Comment on above: Performed By: #### B MP, PT, CBC #### [facility] [address] CO2 [Moles/Vol] 29.6 mmol/L Normal 22.0-30.0 [facility] Comment on above: Performed By: #### B MP, PT, CBC #### [address] Creatinine [Mass/Vol] 0.89 mg/dL Normal 0.44-1.03 [facility] Comment on above: Performed By: #### B MP, PT, CBC #### [address] Creatinine Clr Calc Pharmacy 45.71 [facility] Comment on above: Result Comment: PERF ORMED BY: [place] [address] PATHOLOGIST FRONT END TECHNICIAN ADRIAN ROBERTSON M.D. Performed By: #### B MP, PT, CBC #### [address] Estimated GFR ( Rafaela > 60 [facility] Comment on above: Result Comment: GFR estimated reference range: According to KDOQI guidelines, <60 ml/min/1.73m2 is sufficient to diagnose a patient with chronic kidney disease. Performed By: #### B MP, PT, CBC #### [address] Estimated GFR (Non- Am > 60 [facility] Comment on above: Performed By: #### B MP, PT, CBC #### [address] Glucose [Mass/Vol] 179 mg/dL High 70-100 [facility] Comment on above: Result Comment: [place] om Glucose Reference Range is dependent on time and content of last meal. Glucose of more than 200 mg/dL in a nonstressed, ambulatory subject supports the diagnosis of Diabetes Mellitus. ADA recommended reference range Performed By: #### B MP, PT, CBC #### [address] Potassium [Moles/Vol] 3.1 mmol/L Low 3.5-5.1 [facility] Comment on above: Performed By: #### B MP, PT, CBC #### [facility] [address] [place] [address] [place] Sodium [Moles/Vol] 137 mmol/L Normal 136-146 [facility] Comment on above: Performed By: #### B MP, PT, CBC #### [facility] [address] Urea nitrogen [Mass/Vol] 10 mg/dL Normal 9-23 [facility] Comment on above: Performed By: #### B MP, PT, CBC #### [facility] [address] [place] [address] [place] Basophils Auto (Bld) [#/Vol] Ordered By: Salma Cortes on 11-10-2021 Basophils (Bld) [#/Vol] 0.0 10*3/uL 0.0-0.2 [facility] Basophils/100 WBC Auto (Bld) Ordered By: Salma Cortes on 11-10-2021 Basophils/100 WBC (Bld) 0.2 % [facility] Blood hemoglobin measurement (mass/volume)Ordered By: Salma Cortes on 11-10-2021 Hemoglobin (Bld) [Mass/Vol] 13.2 g/dL 11.8-15.4 [facility] Blood leukocytes automated c ount (number/volume)Ordered By: Salma Cortes on 11-10-2021 WBC (Bld) [#/Vol] 10.7 10*3/uL 4.5-11.0 [facility] CT head/brain wo conon 11-10 CT head/brain wo con [facility] [address] [place] [address] CT Scan Report Signed Patient: Andrew Barros MR#: [id number] : 1945 Acct:[id number] Age/Sex: 76 / F ADM Date: 11/09/21 Loc: Room: [address] [place] [address] Type: ADM IN Attending Dr: Shaka Echavarria MD Ordering Provider: Salma Cortes MD Date of Service: 11/10/21 CT/CT head/brain wo con: BLEED Copies to: MD Salam Patel MD CT head/brain wo con 11/10/2021 [...] Trina Watts M.D.11/10/2021 8:43 AM Dictation Location: [place] [address] Transcribed By: [facility] 11/10/21842 Dictated By: Trina Watts II, MD 11/10/2140 Signed By: 11/10/21842 [facility] Complete Blood Count Auto Di ffon 11-10-2021 Basophils (Bld) [#/Vol] 0.0 10*3/uL Normal 0.0-0.2 [facility] Comment on above: Result Comment: PERF ORMED BY: [place] [address] PATHOLOGIST FRONT END TECHNICIAN ADRIAN ROBERTSON M.D. Performed By: #### B MP, PT, CBC #### [facility] [address] [place] [address] [place] Basophils/100 WBC (Bld) 0.2 % Normal . [facility] Comment on above: Performed By: #### B MP, PT, CBC #### [facility] [address] [place] [address] [place] Eosinophils (Bld) [#/Vol] 0.0 10*3/uL Normal 0.0-0.45 [facility] Comment on above: Performed By: #### B MP, PT, CBC #### [facility] [address] [place] [address] [place] Eosinophils/100 WBC (Bld) 0.1 % Normal . [facility] Comment on above: Performed By: #### B MP, PT, CBC #### [facility] [address] [place] [address] [place] Erythrocyte distribution width (RBC) [Ratio] 13.8 % Normal 11.9-15.3 [facility] Comment on above: Performed By: #### B MP, PT, CBC #### [facility] [address] [place] [address] [place] Hematocrit (Bld) [Volume fraction] 39.1 % Normal 34.0-46.4 [facility] Comment on above: Performed By: #### B MP, PT, CBC #### [facility] [address] [place] [address] [place] Hemoglobin (Bld) [Mass/Vol] 13.2 g/dL Normal 11.8-15.4 [facility] Comment on above: Performed By: #### B MP, PT, CBC #### [facility] [address] [place] [address] [place] Lymphocytes (Bld) [#/Vol] 1.3 10*3/uL Normal 1.00-4.8 [facility] Comment on above: Performed By: #### B MP, PT, CBC #### [facility] [address] [place] [address] [place] Lymphocytes/100 WBC (Bld) 12.0 % Normal . [facility] Comment on above: Performed By: #### B MP, PT, CBC #### [facility] [address] MCH (RBC) [Entitic mass] 30.4 pg Normal 24.7-34.3 [facility] Comment on above: Performed By: #### B MP, PT, CBC #### [facility] [address] MCV (RBC) [Entitic vol] 90.0 fL Normal 80-100 [facility] Comment on above: Performed By: #### B MP, PT, CBC #### [facility] [address] Mean Corpuscular HGB Conc 33.8 g/dL Normal 32.0-35.0 [facility] Comment on above: Performed By: #### B MP, PT, CBC #### [facility] [address] [place] [address] [place] Monocytes (Bld) [#/Vol] 1.2 10*3/uL High 0.0-0.8 [facility] Comment on above: Performed By: #### B MP, PT, CBC #### [facility] [address] [place] [address] [place] Monocytes/100 WBC (Bld) 10.8 % Normal . [facility] Comment on above: Performed By: #### B MP, PT, CBC #### [facility] [address] [place] [address] [place] Neutrophils (Bld) [#/Vol] 8.2 10*3/uL High 1.8-7.7 [facility] Comment on above: Performed By: #### B MP, PT, CBC #### [facility] [address] [place] [address] [place] Neutrophils/100 WBC (Bld) 76.9 % Normal . [facility] Comment on above: Performed By: #### B MP, PT, CBC #### [facility] [address] Nucleated RBC/100 WBC (Bld) [Ratio] 0.1 % Normal 0-0.5 [facility] Comment on above: Performed By: #### B MP, PT, CBC #### [facility] [address] Platelet mean volume (Bld) [Entitic vol] 9.2 fL Normal 6.3-10.7 [facility] Comment on above: Performed By: #### B MP, PT, CBC #### [address] Platelets (Bld) [#/Vol] 261 10*3/uL Normal 150-450 [facility] Comment on above: Performed By: #### B MP, PT, CBC #### [address] RBC (Bld) [#/Vol] 4.35 10*6/uL Normal 3.60-5.00 [facility] Comment on above: Performed By: #### B MP, PT, CBC #### [address] WBC (Bld) [#/Vol] 10.7 10*3/uL Normal 4.5-11.0 [facility] Comment on above: Performed By: #### B MP, PT, CBC #### [address] Eosinophils Auto (Bld) [#/Vo l]Ordered By: Salma Cortes on 11-10-2021 Eosinophils (Bld) [#/Vol] 0.0 10*3/uL 0.0-0.45 [facility] Eosinophils/100 WBC Auto (Bl d)Ordered By: Salma Cortes on 11-10-2021 Eosinophils/100 WBC (Bld) 0.1 % [facility] Erythrocyte distribution wid th Auto (RBC) [Ratio]Ordered By: Salma Cortes on 11-10-2021 Erythrocyte distribution width (RBC) [Ratio] 13.8 % 11.9-15.3 [facility] Glucose Poct Glucometerson 0 11-10-2021 Glucose [Mass/Vol] 183 mg/dL Normal [facility] Comment on above: Result Comment: [facility] Glucose Reference Range is dependent on time and content of last meal. Glucose of more than 200 mg/dL in a nonstressed, ambulatory subject supports the diagnosis of Diabetes Mellitus. PERFORMED BY: [address] [place] [address] PATHOLOGIST FRONT END TECHNICIAN ADRIAN ROBERTSON M.D. Performed By: #### G LULS #### Point of Care testing , Glucose [Mass/Vol] 135 mg/dL Normal [facility] Comment on above: Result Comment: [facility] Glucose Reference Range is dependent on time and content of last meal. Glucose of more than 200 mg/dL in a nonstressed, ambulatory subject supports the diagnosis of Diabetes Mellitus. PERFORMED BY: [address] [place] [address] PATHOLOGIST FRONT END TECHNICIAN ADRIAN ROBERTSON M.D. Performed By: #### G LULS #### Point of Care testing , Glucose [Mass/Vol] 235 mg/dL Normal [facility] Comment on above: Result Comment: [facility] Glucose Reference Range is dependent on time and content of last meal. Glucose of more than 200 mg/dL in a nonstressed, ambulatory subject supports the diagnosis of Diabetes Mellitus. PERFORMED BY: [address] [address] PATHOLOGIST FRONT END TECHNICIAN ADRIAN ROBERTSON M.D. Performed By: #### G LULS #### Point of Care testing , Glucose [Mass/Vol] 110 mg/dL Normal [facility] Comment on above: Result Comment: [facility] Glucose Reference Range is dependent on time and content of last meal. Glucose of more than 200 mg/dL in a nonstressed, ambulatory subject supports the diagnosis of Diabetes Mellitus. PERFORMED BY: [address] [address] PATHOLOGIST FRONT END TECHNICIAN ADRIAN ROBERTSON M.D. Performed By: #### G KIMBERLY #### Point of Care testing , Hematocrit Auto (Bld) [Volum e fraction]Ordered By: Salma Cortes on 11-10-2021 Hematocrit (Bld) [Volume fraction] 39.1 % 34.0-46.4 [facility] - CoagulationOrde red By: Salma Cortes on 11-10-2021 PT Coag (PPP) [Time] 12.6 s 9.0-12.9 [facility] - Hematology and Cell countsOrdered By: Salma Cortes on 11-10-2021 Nucleated RBC/100 WBC (Bld) [Ratio] 0.1 % 0-0.5 [facility] Lymphocytes Auto (Bld) [#/Vo l]Ordered By: Salma Cortes on 11-10-2021 Lymphocytes (Bld) [#/Vol] 1.3 10*3/uL 1.00-4.8 [facility] Lymphocytes/100 WBC Auto (Bl d)Ordered By: Salma Cortes on 11-10-2021 Lymphocytes/100 WBC (Bld) 12.0 % [facility] MCH Auto (RBC) [Entitic mass ]Ordered By: Salma Cortes on 11-10-2021 MCH (RBC) [Entitic mass] 30.4 pg 24.7-34.3 [facility] MCHC Auto (RBC) [Mass/Vol]Or dered By: Salma Cortes on 11-10-2021 MCHC (RBC) [Mass/Vol] 33.8 g/dL 32.0-35.0 [facility] MCV Auto (RBC) [Entitic vol] Ordered By: Salma Cortes on 11-10-2021 MCV (RBC) [Entitic vol] 90.0 fL 80-100 [facility] Monocytes Auto (Bld) [#/Vol] Ordered By: Salma Cortes on 11-10-2021 Monocytes (Bld) [#/Vol] 1.2 10*3/uL 0.0-0.8 [facility] Monocytes/100 WBC Auto (Bld) Ordered By: Salma Cortes on 11-10-2021 Monocytes/100 WBC (Bld) 10.8 % [facility] Neutrophils Auto (Bld) [#/Vo l]Ordered By: Salma Cortes on 11-10-2021 Neutrophils (Bld) [#/Vol] 8.2 10*3/uL 1.8-7.7 [facility] Neutrophils/100 WBC Auto (Bl d)Ordered By: Salma Cortes on 11-10-2021 Neutrophils/100 WBC (Bld) 76.9 % [facility] Platelet mean volume Auto (B ld) [Entitic vol]Ordered By: Salma Cortes on 11-10-2021 Platelet mean volume (Bld) [Entitic vol] 9.2 fL 6.3-10.7 [facility] Platelet poor plasma interna tional normalized ratio (INR) by coagulation assay (relatOrdered By: Salma Cortes on 11-10-2021 INR Coag (PPP) [Relative time] 1.1 {INR} [facility] Comment on above: INR Therapeutic Rang e [...] 11-10-2021 Platelets (Bld) [#/Vol] 261 10*3/uL 150-450 [facility] Prothrombin Time INRon 11-10 INR Coag (PPP) [Relative time] 1.1 {INR} Normal [facility] Comment on above: Result Comment: INR Therapeutic [...] heart valves: 3 - 4.5 PERFORMED BY: [place] [address] PATHOLOGIST FRONT END TECHNICIAN ADRIAN ROBERTSON M.D. Performed By: #### B MP, PT, CBC #### [facility] [address] [place] [address] [facility] PT Coag (PPP) [Time] 12.6 s Normal 9.0-12.9 [facility] Comment on above: Performed By: #### B MP, PT, CBC #### [facility] [address] [place] [address] [facility] INR Coag (PPP) [Relative time] 1.2 {INR} Normal [facility] Comment on above: Order Comment: that [...] heart valves: 3 - 4.5 PERFORMED BY: [place] [address] PATHOLOGIST FRONT END TECHNICIAN ADRIAN ROBERTSON M.D. Performed By: #### P T #### [facility] [address] [place] [address] [facility] PT Coag (PPP) [Time] 12.9 s Normal 9.0-12.9 [facility] Comment on above: Order Comment: that no one else will be tiring until 3rd comes in. psw 2013 Performed By: #### P T #### [facility] [address] [place] [address] [place] RBC Auto (Bld) [#/Vol]Ordere d By: Salma Cortes on 11-10-2021 RBC (Bld) [#/Vol] 4.35 10*6/uL 3.60-5.00 [facility] BNPon 11-09-2021 Natriuretic peptide B (Bld) [Mass/Vol] 914.0 pg/mL Normal <=1,800.0 [facility] Comment on above: Performed By: #### C MADM, CMP, BNP ####[facility] [address] [place] [address]Dr. Swathi Reis CARDIAC TRINA ADMITon 022 CK [Catalytic activity/Vol] 50 U/L Normal 30-135 [facility] Comment on above: Performed By: #### C MADM, CMP, BNP ####[facility] [address] [place] [address]Dr. Swathi Reis CK.MB [Mass/Vol] 1.14 ng/mL Normal <=2.37 [facility] Comment on above: Performed By: #### C MADM, CMP, BNP ####[facility] [address] [place] [address]Dr. Swathi Reis HSTROP 12.8 pg/mL Normal 4.0-35.5 [facility] Comment on above: Result Comment: CUT- OFF POINTS HAVE BEEN ESTABLISHED BASED ON THE FOURTH UNIVERSAL DEFINITIONS OF MYOCARDIALINFARCTION. THE UPPER REFERENCE LIMIT (URL) OF TROPONIN, DEFINED THE 99TH PERCENTILE OFcTnI DISTRIBUTION IN A REFERENCE POPULATION, HAS BEEN CONFIRMED THE DECISION THRESHOLDFOR NE DIAGNOSIS. Performed By: #### C MADM, CMP, BNP ####[facility] [address] [place] [address]Dr. Swathi Reis GUANACO 53.0 ng/mL Normal <=61.5 [facility] Comment on above: Performed By: #### C MADM, CMP, BNP ####[facility] [address] [place] [address]Dr. Swathi Chato CBC AUTO DIFFon 11-09-2021 BASO # 0.0 103/ul Normal 0.0-0.1 [facility] Comment on above: Performed By: #### C BC ####[facility] [address] [place] [address]Dr. Swathi Reis Basophils/100 WBC (Bld) 0.3 % Normal 0.2-2.0 [facility] Comment on above: Performed By: #### C BC ####[facility] [address] [place] [id number]. Swathi Reis EO # 0.0 103/ul Normal 0.0-0.7 [facility] Comment on above: Performed By: #### C BC ####[facility] [address] [place] [address]Dr. Swathi Reis Eosinophils/100 WBC (Bld) 0.2 % Critically low 0.9-7.0 [facility] Comment on above: Performed By: #### C BC ####[facility] [address] [place], [place] [address]Dr. Swathi Reis Erythrocyte distribution width (RBC) [Ratio] 13.1 % Normal 11.0-15.0 [facility] Comment on above: Performed By: #### C BC ####[facility] [address] [place], [place] [address]Dr. Swathi Reis Hematocrit (Bld) [Volume fraction] 40.8 % Normal 36.0-48.0 [facility] Comment on above: Performed By: #### C BC ####[facility] [address] [place], [place] [address]Dr. Swathi Reis Hemoglobin (Bld) [Mass/Vol] 13.3 g/dL Normal 12.0-16.0 [facility] Comment on above: Performed By: #### C BC ####[facility] [address] [place], [place] [address]Dr. Swathi Reis IG # 0.05 10e3/ul Critically high 0.00-0.03 [facility] Comment on above: Performed By: #### C BC ####[facility] [address] [place], [place] [address]Dr. Swathi Reis IG % 0.4 % Normal 0.0-0.5 [facility] Comment on above: Performed By: #### C BC ####[facility] [address] [place], [place] [address]Dr. Swathi Reis LYMPH # 1.0 103/ul Critically low 1.2-3.8 [facility] Comment on above: Performed By: #### C BC ####[facility] [address] [place] [id number]. Swathi Chato Lymphocytes/100 WBC (Bld) 8.3 % Critically low 20.5-60.0 [facility] Comment on above: Performed By: #### C BC ####[facility] [address] [place] [id number]. Swathi Reis MANUAL DIFF REQ NO Normal [facility] Comment on above: Performed By: #### C BC ####[facility] [address] [place] [id number]. Inessatracy Reis MCH (RBC) [Entitic mass] 29.8 pg Normal 26.7-34.0 [facility] Comment on above: Performed By: #### C BC ####[facility] [address] [place], [place] [address]Dr. Swathi Reis MCHC (RBC) [Mass/Vol] 32.6 g/dL Normal 29.9-35.2 [facility] Comment on above: Performed By: #### C BC ####[facility] [address] [place] [address]Dr. Swathi Reis MCV (RBC) [Entitic vol] 91.5 fL Normal 81.0-99.0 [facility] Comment on above: Performed By: #### C BC ####[facility] [address] [place], [place] [address]Dr. Swathi Reis MONO # 0.6 103/ul Normal 0.3-0.8 [facility] Comment on above: Performed By: #### C BC ####[facility] I[address] [place], [place] [address]Dr. Swathi Reis Monocytes/100 WBC (Bld) 4.9 % Normal 1.7-12.0 [facility] Comment on above: Performed By: #### C BC ####[facility] [address] [place], [place] [address]Dr. Swathi Reis NEUT # 10.5 103/ul Critically high 1.4-6.5 [facility] Comment on above: Performed By: #### C BC ####[facility] [address] [place], [place] [address]Sz. Swathi Reis Neutrophils/100 WBC (Bld) 85.9 % Critically high 43.0-75.0 [facility] Comment on above: Performed By: #### C BC ####[facility] [address] [place], [place] [address]Au. Swathi Reis Platelet mean volume (Bld) [Entitic vol] 10.9 fL Normal 9.5-13.5 [facility] Comment on above: Performed By: #### C BC ####[facility] [address] [place] [id number]. Swathi Reis PLT 290 103/ul Normal 150-450 [facility] Comment on above: Performed By: #### C BC ####[facility] [address]fs[address] [place] [id number]. Swathi Reis RBC 4.46 106/ul Normal 4.20-5.40 [facility] Comment on above: Performed By: #### C BC ####[facility] [address] [place], [place] [address]Pd. Swathi Reis WBC 12.3 103/ul Critically high 4.0-11.0 [facility] Comment on above: Performed By: #### C BC ####[facility] [address] [place], [place] [address]q. [address] CT HEAD WO CONon 11-09-2021 CT HEAD WO CON Normal [facility] Covid-19 PCR ([employer])on 10-24 SARS-CoV-2 (COVID-19) RNA ÓSCAR+probe Ql (Unsp [...] for this test is supported by the [place] of [employer] and Human Service's declaration that [...] longer be used). Performed By: #### C [employer] [facility] [employer] ####[facility] [address] [place], [place] [address]Dr. Swathi Reis ER URINE PROFILEon 2 Bilirubin Ql (U) Negative Normal NEGATIVE [facility] Comment on above: Performed By: #### REYNOLD SOSA ####[facility] [address] [place], [place] [address]Dr. Swathi Reis Clarity (U) CLEAR Normal CLEAR [facility] Comment on above: Performed By: #### REYNOLD SOSA ####[facility] Ev[address] [place], [place] [address]Dr. Swathi Reis Color (U) LT. YELLOW Normal YELLOW [facility] Comment on above: Performed By: #### REYNOLD SOSA ####[facility] [address] [place], [place] [address]Dr. Swathi Reis ERUAHD A micrscopic examina tion will be performed if indicated. Normal [facility] Comment on above: Performed By: #### REYNOLD SOSA ####[facility] [address] [place], [place] [address]Dr. Swathi Reis Glucose Ql (U) Negative Normal NEGATIVE [facility] Comment on above: Performed By: #### ROMEO SOSARO ####[facility] L[address] [place], [place] [address]Dr. Swathi Reis Hemoglobin Ql (U) TRACE-INTACT Abnormal NEGATIVE [facility] Comment on above: Performed By: #### REYNOLD SOSA ####[facility] [address] [place] [address]Dr. Swathi Reis Ketones Ql (U) Negative Normal NEGATIVE [facility] Comment on above: Performed By: #### REYNOLD SOSA ####[facility] Huh[address]cytgn[address] [place] [address]Dr. Swathi Reis LEUKOCYTES Negative Normal NEGATIVE [facility] Comment on above: Performed By: #### REYNOLD SOSA ####[facility] [address] [place], [place] [address]Dr. Swathi Reis Nitrite Ql (U) Negative Normal NEGATIVE [facility] Comment on above: Performed By: #### REYNOLD SOSA ####[facility] [address] [place], [place] [address]Dr. Swathi Reis pH (U) 6.0 [pH] Normal 5-9 [facility] Comment on above: Performed By: #### REYNOLD SOSA ####[facility] Asxfrixonk[address] [place], [place] [address]Dr. Swathi Reis SPEC GRAVITY 1.010 Normal 1.005-<=1.[address] [facility] Comment on above: Performed By: #### REYNOLD SOSA ####[facility] T[address] [place], [place] [address]Dr. Swathi Reis UA PROTEIN TRACE Normal NEGATIVE/ TRACE [facility] Comment on above: Performed By: #### REYNODL SOSA ####[facility] [address] [place], [place] [address]Dr. Swathi Reis UR MICRO IND INDICATED Normal [facility] Comment on above: Performed By: #### REYNOLD SOSA ####[facility] X[address] [place], [place] [address]Dr. Swathi Reis Urobilinogen Qn (U) 0.2 {Sánchez'U}/dL Normal 0.2 - 1. 0 [facility] Comment on above: Performed By: #### REYNOLD SOSA ####[facility] [address] [place], [place] [address]Dr. Swathi Reis Glucose Poct Glucometerson 0 11-09-2021 Glucose [Mass/Vol] 178 mg/dL Normal [facility] Comment on above: Result Comment: [facility] Glucose Reference Range is dependent on time and content of last meal. Glucose of more than 200 mg/dL in a nonstressed, ambulatory subject supports the diagnosis of Diabetes Mellitus. PERFORMED BY: [facility] [place] [address] PATHOLOGIST FRONT END TECHNICIAN ADRIAN ROBERTSON M.D. Performed By: #### G LULS #### Point of Care testing , PROF 14(COMP METB)on 022 Albumin [Mass/Vol] 3.5 g/dL Normal 3.5-5.0 [facility] Comment on above: Performed By: #### C ROSALINO, CMP, BNP ####[facility] [address] [place] [address]Dr. Swathi Reis Albumin/Globulin [Mass ratio] 1.0 {ratio} Normal [facility] Comment on above: Performed By: #### C MADM, CMP, BNP ####[facility] [address] [place] [address]Dr. Swathi Reis ALP [Catalytic activity/Vol] 93 U/L Normal 38-126 [facility] Comment on above: Performed By: #### C MADM, CMP, BNP ####[facility] [address] [place] [id number]. Swathi Reis ALT [Catalytic activity/Vol] 22 U/L Normal 9-52 [facility] Comment on above: Performed By: #### C MADM, CMP, BNP ####[facility] [address]hr[address] [place] [id number]. Swathi Reis Anion gap [Moles/Vol] 15.4 mmol/L Normal [facility] Comment on above: Performed By: #### C MADM, CMP, BNP ####[facility] [address] [place] [id number]. Swathi Reis AST [Catalytic activity/Vol] 21 U/L Normal 14-36 [facility] Comment on above: Performed By: #### C MADM, CMP, BNP ####[facility] [address] [place] [address]Dr. Swathi Reis Bilirubin [Mass/Vol] 0.7 mg/dL Normal 0.2-1.3 [facility] Comment on above: Performed By: #### C MADM, CMP, BNP ####[facility] Gcaoxjpppg0109 [place] [address]Dr. Swathi Reis Calcium [Mass/Vol] 9.5 mg/dL Normal 8.4-10.2 [facility] Comment on above: Performed By: #### C MADM, CMP, BNP ####[facility] Rqw[address] [place] [address]Dr. Swathi Reis Chloride [Moles/Vol] 99 mmol/L Normal 98-107 [facility] Comment on above: Performed By: #### C MADM, CMP, BNP ####[facility] [address] [place], [place] [address]Dr. Swathi Reis CO2 [Moles/Vol] 31.0 mmol/L Critically high 22.0-30.0 [facility] Comment on above: Performed By: #### C MADM, CMP, BNP ####[facility] [address] [place], [place] [address]Dr. Swathi Reis Creatinine [Mass/Vol] 1.10 mg/dL Critically high 0.52-1.04 [facility] Comment on above: Performed By: #### C MADM, CMP, BNP ####[facility] [address] [place], [place] [address]Dr. Swathi Reis EGFR-AF UKRAINIAN 58 mL/min/1.73m2 Critically low >=60 [facility] Comment on above: Performed By: #### C MADM, CMP, BNP ####[facility] [address] [place], [place] [address]Dr. Swathi Reis EGFR-NON AF UKRAINIAN 48 mL/min/1.73m2 Critically low >=60 [facility] Comment on above: Performed By: #### C MADM, CMP, BNP ####[facility] Ugmr[address]ips[address] [place] [address]Dr. Swathi Reis Globulin (S) [Mass/Vol] 3.5 g/dL Normal [facility] Comment on above: Performed By: #### C MADM, CMP, BNP ####[facility] [address] [place] [address]Dr. Swathi Reis Glucose [Mass/Vol] 203 mg/dL Critically high 74-106 T [facility] Comment on above: Performed By: #### C MADM, CMP, BNP ####[facility] Fsahfkxfer7[address] [place] [address]Dr. Swathi Reis Potassium [Moles/Vol] 4.4 mmol/L Normal 3.4-5.0 [facility] Comment on above: Performed By: #### C MADM, CMP, BNP ####[facility] Sp[address]fflxih[address] [place] [address]Dr. Swathi Reis Protein [Mass/Vol] 7.0 g/dL Normal 6.1-8.2 [facility] Comment on above: Performed By: #### C MADM, CMP, BNP ####[facility] [address]bezuqp[address] [place] [address]Dr. Swathi Reis Sodium [Moles/Vol] 141 mmol/L Normal 137-145 [facility] Comment on above: Performed By: #### C MADM, CMP, BNP ####[facility] Owcs[address]scsyy[address] [place] [address]Dr. Swathi Reis Urea nitrogen [Mass/Vol] 21.0 mg/dL Critically high 7.0-17.0 [facility] Comment on above: Performed By: #### C MADM, CMP, BNP ####[facility] Osdpeqtrnx4[address] [place] [address]Dr. Swathi Reis Urea nitrogen/Creatinine [Mass ratio] 19.1 mg/mg Normal [facility] Comment on above: Performed By: #### C MADM, CMP, BNP ####[facility] N[address]cp[address] [place] [address]Dr. Swathi Reis PROTIMEon 11-09-2021 INR Coag (PPP) [Relative time] 1.09 {INR} Normal [facility] Comment on above: Performed By: #### P T, PTT ####[facility] [address] [place], [place] [address]Dr. Swathi Reis INR GUIDELINES SEE BELOW Normal [facility] Comment on above: Result Comment: HARRIETT RED INR: 2.0 - 3.0 CONDITIONS NOT LISTED BELOW 2.5 - 3.5 FOR PROSTHETIC HEART VALVE REPLACEMENT 2.5 - 3.5 RECURRENT THROMBOSIS Performed By: #### P T, PTT ####[facility] Ig[address]ff[address] [place], [place] [address]Dr. Swathi Reis PT Coag (PPP) [Time] 11.7 s Critically high 9.0-11.6 [facility] Comment on above: Performed By: #### P T, PTT ####[facility] [address] [place], [place] [address]Dr. Swathi Reis INR Coag (PPP) [Relative time] 3.45 {INR} Normal [facility] Comment on above: Performed By: #### P TT, PT ####[facility] Gto[address] [place], [place] [address]Dr. Swathi Reis INR GUIDELINES SEE BELOW Normal [facility] Comment on above: Result Comment: HARRIETT RED INR: 2.0 - 3.0 CONDITIONS NOT LISTED BELOW 2.5 - 3.5 FOR PROSTHETIC HEART VALVE REPLACEMENT 2.5 - 3.5 RECURRENT THROMBOSIS Performed By: #### P TT, PT ####[facility] Dynvftusoo[address] [place], [place] [address]Dr. Swathi Reis PT Coag (PPP) [Time] 34.4 s Critically high 9.0-11.6 [facility] Comment on above: Performed By: #### P TT, PT ####[facility] Ptopt[address]kqu[address] [place], [place] [address]Dr. Swathi Reis PTTon 11-09-2021 aPTT Coag (Bld) [Time] 25.9 s Normal 22.3-36.2 [facility] Comment on above: Performed By: #### P T, PTT ####[facility] Rsc[address]xulsor[address] [place] [address]Dr. Inessatracy Reis aPTT Coag (Bld) [Time] 39.1 s Critically high 22.3-36.2 [facility] Comment on above: Performed By: #### P TT, PT ####[facility] Novbb[address]stiw[address] [place], [place] [address]Dr. Swathi Reis TYPE AND SCREENon 11-09-2021 TYPE AND SCREEN Negative Normal [facility] Comment on above: Performed By: #### T NS ####[facility] Abtur[address] [place], [place] [address]Dr. Swathi Reis URINE MICROSCOPIC ONLYon BACTERIA NONE SEEN Normal NONE SEEN [facility] Comment on above: Performed By: #### ROMEO SOSARO ####[facility] [address] [place], [place] [address]Dr. Swathi Reis Bacteria identified Cx Nom (U) NOT INDICATED Normal [facility] Comment on above: Performed By: #### ROMEO SOSARO ####[facility] Q[address] [place], [place] [address]Dr. Swathi Reis CAST NONE SEEN Normal NONE SEEN [facility] Comment on above: Performed By: #### ROMEO SOSARO ####[facility] Rvyzv[address] [place], [place] [address]Dr. Swathi Reis Crystals LM Nom (Urine sed) NONE SEEN Normal NONE SEEN [facility] Comment on above: Performed By: #### ROMEO SOSARO ####[facility] W[address] [place], [place] [address]Dr. Swathi Reis Epithelial cells LM Ql (Urine sed) FEW Abnormal NONE SEEN /RARE [facility] Comment on above: Performed By: #### ROMEO SOSARO ####[facility] Qvfzqjp[address] [place], [place] [address]Dr. Inessalan Chato MUCOUS NONE SEEN Normal NONE SEEN [facility] Comment on above: Performed By: #### ROMEO SOSARO ####[facility] [address] [place], [place] [address]Dr. Swathi Reis RBC 2-5 Abnormal 0-2 [facility] Comment on above: Performed By: #### REYNOLD SOSA ####[facility] [address] [place], [place] [address]Kl. Swathi Reis WBC NONE SEEN Normal NONE SEEN [facility] Comment on above: Performed By: #### REYNOLD SOSA ####[facility] [address] [place], [place] [address]Rb. Swathi Reis XR CHEST 1 Von 11-09-2021 XR CHEST [address] [facility] Coding Summary.on 09-14-2020 Coding Summary. CODING DATE: 020 FINAL [facility] STATUS: Short-Term Hosp as IP PAYOR: [...] Revised Date Saved: 09/14/2020 08:26 am Normal [facility] EMS Documentationon 09-12-20 20 EMS Documentation [id number]:127 Normal [facility] ED Clinical Summaryon 2019 ED Clinical Summary (Inserted Image. Ave ble to display) [address] [address] ED Clinical Summary Person Information Name: ANDREW BARROS/New_Braydon Age: 74 Years : 1945 Sex: Female Language: Bengali PCP: Eduardo Sharpe MD Marital Status: Phone: [phone] Visit Id: Visit Reason: Shortness of breath; [...] 09/09/2020 23:10:35 09/09/2020 23:10:35 09/09/2020 23:10:35 ADDRESS: [address] [place] [address] PHYS DOC NOTES: Addendum by Koko Pettit DO on September 09, 2020 18:55:26 EST MEDICAL INFORMATION: Prescriptions Given: Medications to Continue with No Changes Other Medications insulin aspart (NovoLog) 8 Units Subcutaneous every day. nitroglycerin nitroglycerin (nitroglycerin 0.4 mg sublingual Tab) 1 Tablets Sublingual every 5 minutes as needed for chest pain. PATIENT EDUCATION INFORMATION: Instructions: Follow up: DIAGNOSIS: COVID-19; Hypoxemia; Pneumonia Normal [facility] ED Patient Education Noteon 09-10-2020 ED Patient Education Note Normal [facility] ED Patient Summaryon 020 ED Patient Summary (Inserted Image. Ave ble to display) [address] [address] Patient Discharge Instructions Person Information Name: ANDREW BARROS Age: 74 Years Arrival Date: 09/09/2020 12:32:39 Discharge Diagnosis: COVID-19; Hypoxemia; Pneumonia Primary Care Physician: Eduardo Sharpe MD Provider Information Primary Provider: Koko Pettit DO [facility] [employer]:None The exam and treatment you received in the Emergency Department were for an urgent problem and are not intended as complete care. It is important that you follow up with a doctor, nurse practitioner, or physician?s clinical lab assistant for ongoing care. If your symptoms [...] opioids can be used to help relieve jsxzwfnk-cb-gpzgyj pain and are often prescribed following a [...] be struggling with addiction, tell your health respiratory care instructor and ask for guidance or call [facility] National Helpline at 9-507-688-KKNI. a Source: [place] Department of Health and Human Services/Center for Disease Control & Prevention [facility] Medications Given: Medication Dose Route levo (more content not included)... Normal [facility] Progress Note-Nurseinna 2019 Progress Note-Nurse [facility] ems at bedside receiving report and preparing patient for transport to [facility]. pt taken off high flow NC and placed on non rebreather at 15L/min o2 for traansport. Normal [facility] Troponin 9 Hr.on 09-10-2020 Troponin I.cardiac [Mass/Vol] 57.60 pg/mL Abnormal 10.10-27.10 [facility] Comment on above: Result Comment: Crit [...] Umair, April 2018) Performed By: #### 1 [id number] ####[facility] [address] [place] [address] .Manual Abson 09-09-2020 Basophils/Leukocytes Manual cnt (Bld) [Pure # fraction] 0.0 E9/L Normal 0.0-0.2 [facility] Comment on above: Performed By: #### 1 3595124, 8629504, 5313175, 2628283, 23781624, 64240628, 1467568, 17346798, 74725085 #### [facility] [address] [place] [address] Eosinophils/Leukocyt es Manual cnt (Bld) [Pure # fraction] 0.0 E9/L Normal 0.0-0.5 [facility] Comment on above: Performed By: #### 1 5757018, 4407695, 8197553, 4339563, 90169550, 71055962, 9132837, 44624612, 49590236 #### [facility] [address] [place] [address] Lymphocytes/Leukocyt es Manual cnt (Bld) [Pure # fraction] 0.4 E9/L Low 1.0-4.0 [facility] Comment on above: Performed By: #### 1 8279757, 1066020, 8471335, 9136647, 48748859, 69844854, 9564373, 26205008, 10336396 #### [facility] [address] [place] [address] Monocytes/Leukocytes Manual cnt (Bld) [Pure # fraction] 1.5 E9/L High 0.2-1.0 [facility] Comment on above: Performed By: #### 1 5327965, 8399873, 0541163, 9224380, 23441266, 65784170, 3929558, 50292934, 28731452 #### [facility] [address] [place] [address] Neutrophils/Leukocyt es Auto (Bld) [Pure # fraction] 18.9 E9/L High 2.0-7.5 [facility] Comment on above: Performed By: #### 1 0509226, 2896205, 5132459, 2558551, 75861430, 08858548, 3314932, 01334713, 76537520 #### [facility] [address] [place] [address] BMPon 09-09-2020 Creatinine [Mass/Vol] 1.1 mg/dL Normal 0.5-1.3 [facility] Comment on above: Performed By: #### 1 8328256, 2016899, 8170224, 5525098, 31587906, 84453340, 7143092, 86786855, 37071544 #### [facility] [address] [place] [address] Urea nitrogen [Mass/Vol] 26 mg/dL High 5-21 [facility] Comment on above: Performed By: #### 1 5774485, 6523349, 4371519, 1103476, 78213286, 04943941, 1519319, 20424536, 28189244 #### [facility] [address] [place] [address] Urea nitrogen/Creatinine [Mass ratio] 24 No Units High 10-20 [facility] Comment on above: Performed By: #### 1 8874175, 6866509, 9331734, 9372762, 47028843, 66595034, 5005269, 66400725, 55357898 #### [facility] [address] [place] [address] Anion gap [Moles/Vol] 14 mmol/L Normal 6-16 [facility] Comment on above: Performed By: #### 1 5925412, 5502035, 6234446, 9856763, 26165628, 92143624, 8605450, 56983756, 67470609 #### [facility] [address] [place] [address] Calcium [Mass/Vol] 8.7 mg/dL Low 8.9-11.1 [facility] Comment on above: Performed By: #### 1 8633378, 1974317, 9165563, 8535783, 08556842, 28653762, 3504791, 45294517, 70508327 #### [facility] [address] [place] [address] Chloride [Moles/Vol] 104 mmol/L Normal 101-111 [facility] Comment on above: Performed By: #### 1 3881367, 0222085, 4720337, 7357796, 38826197, 59101971, 9777675, 50662122, 64718052 #### [facility] [address] [place] [address] CO2 [Moles/Vol] 23 mmol/L Normal 21-31 [facility] Comment on above: Performed By: #### 1 4686194, 6248025, 8928319, 9079940, 73741898, 79186156, 7904359, 26629018, 16804656 #### [facility] [address] [place] [address] Glucose [Mass/Vol] 256 mg/dL High 55-199 [facility] Comment on above: Result Comment: If t his glucose result represents a fasting glucose, interpretation should refer to the following reference range: 55-99 mg/dL Performed By: #### 1 8287595, 0921306, 7753927, 4922840, 53619708, 60023762, 8238946, 89453785, 60009246 #### [facility] [address] [place] [address] Potassium [Moles/Vol] 4.9 mmol/L Normal 3.5-5.3 [facility] Comment on above: Performed By: #### 1 9615707, 4407850, 2894100, 1286776, 20587473, 73821396, 3981954, 16541188, 62097354 #### [facility] [address] [place] [address] Sodium [Moles/Vol] 136 mmol/L Normal 135-145 [facility] Comment on above: Performed By: #### 1 0341433, 7178552, 0864248, 6652893, 49059426, 45935826, 6973943, 44529911, 87758885 #### [facility] [address] [place] [address] BNPon 09-09-2020 Int Ctr BNP Pass Normal [facility] Comment on above: Performed By: #### 1 0339746, 4915404, 2685412, 6513602, 50805397, 68426185, 0531065, 63097099, 80244189 ####[facility] [address] [place] [address] Natriuretic peptide B (Bld) [Mass/Vol] 477 pg/mL High 5-80 [facility] Comment on above: Performed By: #### 1 5973050, 8504269, 6631612, 3108674, 82822055, 18406867, 5209353, 44397103, 85071456 ####[facility] [address] [place] [address] Bld Gas Arton 09-09-2020 a/A Ratio Art 37.50 Normal >=0.80 [facility] Comment on above: Performed By: #### 1 7061275 ####[facility] [address] [place] [address] AaDO2 Art 144.6 High 5.0-15.0 [facility] Comment on above: Performed By: #### 1 0890082 ####[facility] [address] [place] [address] Allens Test Positive Invalid Interpretation Code [facility] Comment on above: Result Comment: [facility] Department of Pulmonary Medicine [address] [place] [address] Performed By: #### 1 4940782 ####[facility] [address] [place] [address] Base excess Calc (Bld) [Moles/Vol] -1.8000 mmol/L Low >=2.8 [facility] Comment on above: Performed By: #### 1 8483069 ####[facility] [address] [place] [address] Called By: MISHA Invalid Interpretation Code [facility] Comment on above: Performed By: #### 1 9871231 ####[facility] [address] [place] [address] Called To: COLTON Invalid Interpretation Code [facility] Comment on above: Performed By: #### 1 8011469 ####[facility] [address] [place] [address] cCa2+ Art 4.93 mg/dL Normal 4.40-5.30 [facility] Comment on above: Performed By: #### 1 4695627 ####[facility] [address] [place] [address] cCl- Art 106.0 mmol/L Normal 101.0-111.0 [facility] Comment on above: Performed By: #### 1 4611845 ####[facility] [address] [place] [address] cGlu Art 262.0 mg/dL High 55.0-199.0 [facility] Comment on above: Result Comment: 83 Performed By: #### 1 1618922 ####[facility] [address] [place] [address] cK+ Art 4.9 mmol/L Normal 3.5-5.3 [facility] Comment on above: Performed By: #### 1 3874112 ####[facility] [address] [place] [address] cLac Art 1 mmol/L Low 5-14 [facility] Comment on above: Performed By: #### 1 6714419 ####[facility] [address] [place] [address] media clerk+ Art 140.0 mmol/L Normal 135.0-145.0 [facility] Comment on above: Performed By: #### 1 7051348 ####[address] [facility] [place] [address] CO2 (Bld) [Partial pressure] 45.5 mm[Hg] High 35.0-45.0 [facility] Comment on above: Result Comment: 83 Performed By: #### 1 0602409 ####[address] [facility] [place] [address] Device NASAL Invalid Interpretation Code [facility] Comment on above: Performed By: #### 1 0975608 ####[address] [address] Drawn by TSB Invalid Interpretation Code [facility] Comment on above: Performed By: #### 1 5081093 ####[address] [place] [address] Dt/Tm Notified 12:54:00 Invalid Interpretation Code [facility] Comment on above: Performed By: #### 1 9889267 ####[address] [place] [address] FCOHb Art 1.1 % Low 1.5-4.9 [facility] Comment on above: Result Comment: 84 Reference range Nonsmoker <1.5% Smoker <5.0% Heavy Smoker <9.0% Performed By: #### 1 1879847 ####[address] [facility] [place] [address] FIO2 BG 40.0 Invalid Interpretation Code [facility] Comment on above: Performed By: #### 1 0113483 ####[address] [facility] [place] [address] Flow 5.00 Invalid Interpretation Code [facility] Comment on above: Performed By: #### 1 7757097 ####[address] [place] [address] FMetHb Art 0.6 % Normal 0.0-1.9 [facility] Comment on above: Performed By: #### 1 4262696 ####[address] [place] [address] FO2Hb Art 94.9 % Normal 92.0-100.0 [facility] Comment on above: Performed By: #### 1 1765805 ####[address] [address] HCO3 (Bld) [Moles/Vol] 22.9 mmol/L Normal 22.0-26.0 [facility] Comment on above: Performed By: #### 1 5860628 ####[address] [address] Hemoglobin (Bld) [Mass/Vol] 9.9 g/dL Low 12.0-16.0 [facility] Comment on above: Result Comment: 84 Performed By: #### 1 4706505 ####[place] Oxygen saturation in Blood 96.6 % Normal 95.0-100.0 [facility] Comment on above: Performed By: #### 1 9432701 ####[place] [address] P O2 Arterial 86.6 mmHg Normal 80.0-100.0 [facility] Comment on above: Performed By: #### 1 8025837 ####[address] [address] pH (Bld) 7.333 [pH] Low 7.350-7.450 [facility] Comment on above: Result Comment: 84 Performed By: #### 1 7596517 ####[address] [address] Sample Site RR Invalid Interpretation Code [facility] Comment on above: Performed By: #### 1 7878830 ####[address] [address] Sample Type Arterial Invalid Interpretation Code [facility] Comment on above: Performed By: #### 1 3180828 ####[address] [address] CBC w/ Auto Diffon 202 0 Erythrocyte distribution width (RBC) [Ratio] 15.1 % High 10.9-14.2 [facility] Comment on above: Performed By: #### 1 8222182, 1052837, 7771953, 9654775, 66389259, 38918598, 6825380, 68177241, 90566509 #### [facility] [address] [place] [address] Hematocrit (Bld) [Volume fraction] 30.7 % Low 34.0-46.0 [facility] Comment on above: Performed By: #### 1 7809878, 5111511, 5824693, 2706319, 14062063, 23285948, 2590306, 26837119, 54081356 #### [facility] [address] [place], [place] [address] Hemoglobin (Bld) [Mass/Vol] 9.9 g/dL Low 12.0-16.0 [facility] Comment on above: Performed By: #### 1 2163395, 1684432, 9790601, 5816756, 50366303, 69796260, 6954899, 12496399, 36778019 #### [facility] [address] [place] [address] MCH (RBC) [Entitic mass] 29.7 pg Normal 27.0-34.0 [facility] Comment on above: Performed By: #### 1 0719472, 0856619, 9606290, 7068446, 37326219, 30106213, 7273945, 12780696, 61076610 #### [facility] [address] [place] [address] MCHC (RBC) [Mass/Vol] 32.2 g/dL Normal 31.4-36.0 [facility] Comment on above: Performed By: #### 1 2913050, 2703257, 6223151, 9558226, 37661829, 13275659, 8002833, 60788864, 19135656 #### [facility] [address] [place] [address] MCV (RBC) [Entitic vol] 92.3 fL Normal 80.0-100.0 [facility] Comment on above: Performed By: #### 1 0434458, 6588677, 2563520, 0178047, 94476240, 01808322, 0726787, 42279079, 47941901 #### [facility] [address] [place] [address] Platelet mean volume (Bld) [Entitic vol] 8.4 fL Normal 6.4-10.8 [facility] Comment on above: Performed By: #### 1 1923040, 0021913, 0592748, 9059336, 59065422, 90786163, 1920399, 67749657, 16537267 #### [facility] [address] [place] [address] Platelets (Bld) [#/Vol] 243.0 E9/L Normal 150.0-500.0 [facility] Comment on above: Performed By: #### 1 7881986, 7293615, 4394844, 0634516, 83486052, 64638146, 7193474, 28914239, 72936241 #### [facility] [address] [place] [address] RBC (Bld) [#/Vol] 3.3 E12/L Low 4.3-5.9 [facility] Comment on above: Performed By: #### 1 0494671, 7552617, 1344026, 1415662, 61446150, 01647476, 7207307, 39825395, 22551848 #### [facility] [address] [place] [address] WBC corrected for nucl RBC Auto (Bld) [#/Vol] 21.7 E9/L High 4.0-11.0 [facility] Comment on above: Performed By: #### 1 2198446, 4271048, 4946626, 6393204, 19614005, 81998229, 7548018, 50703839, 90625964 #### [facility] [address] [place] [address] CTA Cheston 12-18-2020 CTA Chest Exam Date/Time: [...] 370 Contrast amount in ml's: 66 Normal [facility] Consent for Treatmenton 08-23 Consent for Treatment [id number]:127 Normal [facility] D-Dimeron 09-09-2020 Fibrin D-dimer FEU (PPP) [Mass/Vol] 1480 ng/mL Abnormal 215-500 [facility] Comment on above: Result Comment: Resu [...] infections Liver cirrhosis Performed By: #### 1 5167601, 0047640, 6630091, 3751438, 69884253, 82655524, 2187398, 60322059, 99949648 ####[facility] [address] [place] [address] ED Note-Physicianon 09-09-20 ED Note-Physician Basic Information Time Seen: Koko Pettit DO 09/09/2020 12:35 Chief Complaint Sent from [facility] for increased SOB and low oxygen level. Covid positive about 2 weeks ago per EMS History of Present Illness 74 female presents to the emergency department with shortness of breath. Patient presents by EMS from the longterm with Covid positive testing about 2 weeks [...] does not normally wear oxygen at the longterm. No other aggravating or relieving factors no other associated symptoms no other prior treatments or complaints. Family: Reviewed and noncontributory Social: lives at longterm Review of systems negative unless otherwise specified [...] (09/09/20 13 (more content not included)... Normal [facility] Comment on above: Result Comment: Elec tronically Signed By: Koko Pettit DO\.br\Date and Time Signed: 09/09/20 18:56 EST Lactic Acidon 09-09-2020 Lactate [Mass/Vol] 1.0 mmol/L Normal 0.5-2.2 [facility] Comment on above: Performed By: #### 2 [id number] ####[facility] [address] [place] [address] Manual Diffon 09-09-2020 Band form neutrophils/100 WBC (Bld) 6 % Normal 0-10 [facility] Comment on above: Order Comment: Order Added by Discern Expert. Performed By: #### 1 [id number], 0190897, 9504456, 9506028, 66456156, 41282968, 9338656, 76307601, [id number] #### [facility] [address] [place] [address] Basophils/100 WBC (Bld) 0 % Normal 0-2 [facility] Comment on above: Order Comment: Order Added by Discern Expert. Performed By: #### 1 [id number], 9737687, 3302233, 1751726, 25834776, 69395870, 5420741, 76508687, [id number] #### [facility] [address] [place] [address] Eosinophils/100 WBC (Bld) 0 % Normal 0-8 [facility] Comment on above: Order Comment: Order Added by Discern Expert. Performed By: #### 1 [id number], 8233590, 0665058, 0726812, 31204398, 91753481, 9155900, 70031622, 17716728 #### [facility] [address] [place] [address] Lymphocytes/100 WBC (Bld) 2 % Low 14-50 [facility] Comment on above: Order Comment: Order Added by Discern Expert. Performed By: #### 1 1285147, 6090287, 6486262, 4620884, 35761137, 56184416, 5352652, 71315835, 56051050 #### [facility] [address] [place] [address] Metamyelocytes/Leuko cytes Manual cnt (Bld) [Pure # fraction] 2 % High <=0 [facility] Comment on above: Order Comment: Order Added by Discern Expert. Performed By: #### 1 3043481, 1453972, 3520024, 2499619, 49823550, 93078208, 0266688, 28087507, 79253051 #### [facility] [address] [place] [address] Monocytes/100 WBC (Bld) 7 % Normal 4-14 [facility] Comment on above: Order Comment: Order Added by Discern Expert. Performed By: #### 1 [id number], 5030601, 1649665, 0136847, 85538293, 63978565, 8057282, 88631889, 37185209 #### [facility] [address] [place] [address] Morphology Elie (Bld) [Interp] Normal Normal [facility] Comment on above: Order Comment: Order Added by Discern Expert. Performed By: #### 1 9961992, 2471641, 3129023, 0857642, 17496687, 04830398, 5136426, 78125895, 95733241 #### [facility] [address] [place] [address] Myelocytes/100 WBC (Bld) 2 % High <=0 [facility] Comment on above: Order Comment: Order Added by Discern Expert. Performed By: #### 1 8477193, 6316434, 3723753, 8241643, 49319741, 32225897, 3028119, 21942288, 71298057 #### [facility] [address] [place] [address] Nucleated cells (Bld) [#/Vol] 1 High <=0 [facility] Comment on above: Order Comment: Order Added by Discern Expert. Performed By: #### 1 3635085, 3635615, 8919235, 4947657, 23877142, 85757359, 1357351, 70867802, 27031464 #### [facility] [address] [place] [address] Segmented neutrophils/100 WBC (Bld) 81 % High 36-75 [facility] Comment on above: Order Comment: Order Added by Discern Expert. Performed By: #### 1 1672504, 5786719, 0151976, 6704981, 85028460, 51960299, 3774287, 99053311, 64265128 #### [facility] [address] [place] [address] Variant lymphocytes LM Ql (Bld) 0 % Invalid Interpretation Code [facility] Comment on above: Order Comment: Order Added by Discern Expert. Performed By: #### 1 9627233, 5269432, 7802405, 6638548, 50672415, 21476447, 1762066, 90086457, 79901944 #### [facility] [address] [place] [address] PTon 09-09-2020 INR Coag (PPP) [Relative time] 1.9 {INR} Invalid Interpretation Code [facility] Comment on above: Result Comment: INR results are specifically intended to assess patients stabilized on long-term Anticoagulation therapy suggested INR?s ?Less Intensive Anticoagulation? 2.0 ? 3.0 Conventional Range 3.0 ? 4.5 Performed By: #### 2 396007, 5250249 ####[facility] [address] [place] [address] PT Coag (PPP) [Time] 22.8 second(s) High 10.2-12.9 [facility] Comment on above: Performed By: #### 2 332256, 8592740 ####[facility] [address] [place] [address] PT & PTTon 09-09-2020 aPTT Coag (PPP) [Time] 31.7 second(s) Normal 25.1-36.5 [facility] Comment on above: Result Comment: Hepa rin therapeutic range (represented by Anti-Factor Xa activity of 0.2 - 0.4 U/mL) corresponds to PTT of 56.6 - 109.0 sec. Performed By: #### 1 6012882, 9854660, 9432101, 1549753, 99117518, 58985037, 7332747, 34884933, 44745262 ####[facility] [address] [place] [address] INR Coag (PPP) [Relative time] 2.0 {INR} Invalid Interpretation Code [facility] Comment on above: Result Comment: INR results are specifically intended to assess patients stabilized on long-term Anticoagulation therapy suggested INR?s ?Less Intensive Anticoagulation? 2.0 ? 3.0 Conventional Range 3.0 ? 4.5 Performed By: #### 1 7502837, 6962257, 5083004, 9960334, 71040692, 77769274, 7442502, 86501831, 30667766 ####[facility] [address] [place] [address] PT Coag (PPP) [Time] 23.6 second(s) High 10.2-12.9 [facility] Comment on above: Performed By: #### 1 3246119, 8428792, 1014037, 1493287, 59645338, 91093117, 0780027, 99146346, 93260716 ####[facility] [address] [place] [address] PTTon 09-09-2020 aPTT Coag (PPP) [Time] 30.4 second(s) Normal 25.1-36.5 [facility] Comment on above: Result Comment: Hepa rin therapeutic range (represented by Anti-Factor Xa activity of 0.2 - 0.4 U/mL) corresponds to PTT of 56.6 - 109.0 sec. Performed By: #### 2 602992, [id number] ####[facility] [address] [place] [address] Progress Note-Nurseon 2019 Progress Note-Nurse Pt care report provi ded to JARRET Hirsch. Pts family member, Rosenda updated on pt status. Pres[place] [facility] [place] [facility] [address] Normal [facility] Progress Note-Nurse Pt care report alan d to [facility] Zach, advised of family contact information and will send SNF paperwork with patient. Normal [facility] Progress Note-Nurse Pts daughter, Rosenda updated on pt transfer and condition. Rosenda: [phone] Pts family sts pt is under extreme stress, pts spouse yesterday due to COVID infection. Normal [facility] Progress Note-Nurse Pts son updated on p t condition, presently awating updated order set. Pt returns from CT, RT at bedside for high flow o2 placement. Normal [facility] Progress Note-Nurse IV ABx completed at this time, pt to CT Normal [facility] Progress Note-Nurse Pt c/o increased dys pnea, spo2 reading 89% oxygen increased to 6lpm, nasal cannula. made aware, requests RT for high flow oxygen therapy Normal [facility] Progress Note-Nurse Advised per CT that IV no longer infuses/flushes, await IV access at this time via US. Normal [facility] Progress Note-Nurse Pt to imaging at thi s time. Normal [facility] Troponin 0 Hr.on 09-09-2020 Troponin I.cardiac [Mass/Vol] 10.10 pg/mL Normal 10.10-27.10 [facility] Comment on above: Result Comment: The 95% CI (Confidence Interval) PPV (Positive Predictive Value) for myocardial infarction in females is 38 pg/mL, in males 51 pg/mL. The results should be used in conjunction with clinical conditions of myocardial infarction. (Access High Sensitivity Troponin I Instructions For Use, Uziel Umair, April 2018) Performed By: #### 1 [id number], 5772327, 4234444, 1324804, 52024957, 81832095, 4043556, 81423732, 89883703 ####[facility] [address] [place] [address] Troponin 3 Hr.on 09-09-2020 Troponin I.cardiac [Mass/Vol] 20.20 pg/mL Normal 10.10-27.10 [facility] Comment on above: Result Comment: The 95% CI (Confidence Interval) PPV (Positive Predictive Value) for myocardial infarction in females is 38 pg/mL, in males 51 pg/mL. The results should be used in conjunction with clinical conditions of myocardial infarction. (Access High Sensitivity Troponin I Instructions For Use, MATINAS BIOPHARMA, April 2018) Performed By: #### 1 [id number] ####[facility] [address] [place] [address] Troponin 6 Hr.on 09-09-2020 Troponin I.cardiac [Mass/Vol] 37.60 pg/mL High 10.10-27.10 [facility] Comment on above: Result Comment: The 95% CI (Confidence Interval) PPV (Positive Predictive Value) for myocardial infarction in females is 38 pg/mL, in males 51 pg/mL. The results should be used in conjunction with clinical conditions of myocardial infarction. (Access High Sensitivity Troponin I Instructions For Use, MATINAS BIOPHARMA, April 2018) Performed By: #### 1 [id number] #### [facility] [address] [place] [address] XR Chest Single Viewon 09-09 XR Chest [...] DO Transcribed by: MATTHEW Technologist: JAI Normal [facility] eGFRon 09-09-2020 GFR/1.73 sq M.predicted among blacks MDRD (S/P/Bld) [Vol rate/Area] 59 mL/min/1.73 m2 Normal >=59 [facility] Comment on above: Order Comment: Order added by Discern Expert. Result Comment: eGFR is race adjusted. AA=. Performed By: #### 1 [id number], 2251890, 7555908, 3758183, 67139343, 09580096, 4945997, 92868058, [id number] #### [facility] [address] [place] [address] GFR/1.73 sq M.predicted among non-blacks MDRD (S/P/Bld) [Vol rate/Area] 48 mL/min/1.73 m2 Low >=59 [facility] Comment on above: Order Comment: Order added by Discern Expert. Result Comment: Cardiopulmonary Technician And Eeg Tech les kidney disease could be indicated at eGFR's of less than 60 mL/min/1.73m2. Kidney failure is indicated at less than 15 mL/min/1.73m2. Performed By: #### 1 [id number], 8007500, 1845774, 1494648, 23106638, 71388868, 1683024, 76103110, 09038586 #### [facility] [address] [place] [address] Vital Signs Date Time Vital Sign Value Performing Clinician Facility 05-20-2023 15:[id number] Body height 162.6 cm Sandeep Lenz MD Work Phone: [facility] 05-20-2023 15:10-0400 Body temperature 97.81 [degF] Sandeep Lenz MD Work Phone: [facility] 05-20-2023 15:10-0400 Body weight 58.88 kg Sandeep Lenz MD Work Phone: [facility] 05-20-2023 15:10-0400 Diastolic blood pressure 72 mm[Hg] Sandeep Lenz MD Work Phone: [facility] 05-20-2023 15:10-0400 Heart rate 68 /min Sandeep Lenz MD Work Phone: [facility] 05-20-2023 15:10-0400 Respiratory rate 16 /min Sandeep Lenz MD Work Phone: [facility] 05-20-2023 15:10-0400 SaO2% (BldA) [Mass fraction] 99 % Sandeep Lenz MD Work Phone: [facility] 05-20-2023 15:10-0400 Systolic blood pressure 168 mm[Hg] Sandeep Lenz MD Work Phone: [facility] 04-30-2023 14:20-0400 Body temperature 97.59 [degF] Chair Marcos Work Phone: [facility] 04-30-2023 14:20-0400 Diastolic blood pressure 72 mm[Hg] Chair Marcos Work Phone: [facility] 04-30-2023 14:20-0400 Heart rate 64 /min Chair Marcos Work Phone: [facility] 04-30-2023 14:20-0400 Respiratory rate 16 /min [facility] Work Phone: [facility] 04-30-2023 14:20-0400 SaO2% (BldA) [Mass fraction] 98 % [facility] Work Phone: [facility] 04-30-2023 14:20-0400 Systolic blood pressure 147 mm[Hg] Chair Marcos Work Phone: [facility] 04-29-2023 15:21-0400 Body height 162.6 cm Sandeep Lenz MD Work Phone: [facility] 04-29-2023 15:21-0400 Body temperature 97 [degF] Sandeep Lenz MD Work Phone: [facility] 04-29-2023 15:21-0400 Body weight 58.24 kg Sandeep Lenz MD Work Phone: [facility] 04-29-2023 15:21-0400 Diastolic blood pressure 66 mm[Hg] Sandeep Lenz MD Work Phone: [facility] 04-29-2023 15:21-0400 Heart rate 66 /min Sandeep Lenz MD Work Phone: [facility] 04-29-2023 15:21-0400 Respiratory rate 16 /min Sandeep Lenz MD Work Phone: [facility] 04-29-2023 15:21-0400 SaO2% (BldA) [Mass fraction] 96 % Sandeep Lenz MD Work Phone: [facility] 04-29-2023 15:21-0400 Systolic blood pressure 153 mm[Hg] Sandeep Lenz MD Work Phone: [facility] 05-19-2022 11:30-0400 Diastolic blood pressure 80 mm[Hg] [facility] 05-19-2022 11:30-0400 Heart rate 68 /min [facility] 05-19-2022 11:30-0400 Respiratory rate 16 /min [facility] 05-19-2022 11:30-0400 SaO2% (BldA) [Mass fraction] 98 % [facility] 05-19-2022 11:30-0400 Systolic blood pressure 175 mm[Hg] [facility] 01-08-2022 13:03-0400 Body height 162.6 cm Sandeep Lenz MD Work Phone: [facility] 01-08-2022 13:03-0400 Body temperature 97.39 [degF] Sandeep Lenz MD Work Phone: [facility] 01-08-2022 13:03-0400 Body weight 64.23 kg Sandeep Lenz MD Work Phone: [facility] 01-08-2022 13:03-0400 Diastolic blood pressure 69 mm[Hg] Sandeep Lenz MD Work Phone: [facility] 01-08-2022 13:03-0400 Heart rate 68 /min Sandeep Lenz MD Work Phone: [facility] 01-08-2022 13:03-0400 Respiratory rate 16 /min Sandeep Lenz MD Work Phone: [facility] 01-08-2022 13:03-0400 SaO2% (BldA) [Mass fraction] 97 % Sandeep Lenz MD Work Phone: [facility] 01-08-2022 13:03-0400 Systolic blood pressure 150 mm[Hg] Sandeep Lenz MD Work Phone: [facility] 11-11-2021 13:00-0500 Diastolic blood pressure 69 mm[Hg] MD Eduardo Sharpe Work Phone: [facility] 11-11-2021 13:00-0500 Heart rate 65 /min MD Eduardo Sharpe Work Phone: [facility] 11-11-2021 13:00-0500 Respiratory rate 16 /min MD Eduardo Sharpe Work Phone: [facility] 11-11-2021 13:00-0500 SaO2% (BldA) [Mass fraction] 96 % MD Eduardo Sharpe Work Phone: [facility] 11-11-2021 13:00-0500 Systolic blood pressure 129 mm[Hg] MD Eduardo Sahrpe Work Phone: [facility] 11-11-2021 12:00-0500 Body temperature 98 [degF] MD Eduardo Sharpe Work Phone: [facility] 11-11-2021 06:00-0500 Body weight 63 kg MD Eduardo Sharpe Work Phone: [facility] 11-10-2021 12:59-0500 Body height 163.83 cm MD Eduardo Sharpe Work Phone: [facility] 11-09-2021 18:45-0500 Body mass index (BMI) [Ratio] 23.8 kg/m2 MD Eduardo Sharpe Work Phone: [facility] Encounters Encounter Date Encounter Type Care Provider Facility Start: 08-19-2023 End: 08-19-2023 ambulatory EDUARDO SHARPE Facility:[facility] Start: 08-19-2023 Telephone encounter Clemente Hull Hematology/Oncology Comment on above: Results Start: 07-02-2023 End: 07-02-2023 ambulatory EDUARDO SHARPE Facility:[facility] Start: 06-05-2023 End: 06-05-2023 ambulatory Bala Welshgiannapritesh Other [facility] Other Start: 06-05-2023 Telephone encounter Sadimaureen Welshyosvany [facility] Start: 05-21-2023 Telephone encounter Clemente Hull Hematology/Oncology Comment on above: Results Start: 05-20-2023 End: 05-20-2023 ambulatory EDUARDO SHARPE Facility:[facility] Start: 05-20-2023 End: 05-20-2023 Office outpatient visit 25 minutes Sandeep Lenz MD Work Phone: Hematology/Oncology Comment on above: Hypercalcemia (Prima ry Dx); Malignant neoplasm of upper-outer quadrant of left breast in female, estrogen receptor positive (HCC); Stage 3 chronic kidney disease, unspecified whether stage 3a or 3b CKD (HCC) Start: 05-20-2023 Telephone encounter Sandeep bazan MD Work Phone: Cancer [facility] Comment on above: Referral Information (Nephrology) Start: 05-09-2023 Social Work Aleida QUESADA Hematolo gy/Oncology Start: 05-07-2023 Refill Sandeep aragon MD Work Phone: Hematology/Oncology Comment on above: Refill Request Start: 04-30-2023 End: 04-30-2023 [facility] Work Phone: Hematology/Oncology Comment on above: Hypercalcemia (Prima ry Dx); Other specified menopausal and perimenopausal disorders; Malignant neoplasm of upper-outer quadrant of left breast in female, estrogen receptor positive (HCC) Start: 04-29-2023 End: 04-29-2023 ambulatory EDUARDO SHARPE Facility:[facility] Start: 04-29-2023 End: 04-29-2023 Office outpatient [...] CKD (HCC) Start: 04-01-2023 End: 04-01-2023 ambulatory [facility] Start: 01-14-2023 End: 01-14-2023 ambulatory [facility] Start: 09-03-2022 End: 09-03-2022 ambulatory RAHEEL [facility] Start: 08-23-2022 End: 09-23-2022 ambulatory SHAIKH Barbara [...] Start: 05-19-2022 End: 05-19-[address] [facility] Emergenc [facility] Triage, Treat and Transport Start: 05-19-2022 End: 05-19-2022 Emergency department patient visit [facility] Emergency Triage, Treat and Transport Comment on above: Arrived Start: 05-09-2022 End: 05-10-2022 ambulatory EDUARDO SHARPE Facility:[facility] Start: 05-07-2022 End: 05-08-2022 ambulatory [...] encounter procedure Sandeep Lenz MD Work Phone: [facility] Comment on above: Malignant neoplasm o f upper-outer quadrant of left breast in female, estrogen receptor positive (HCC) (Primary Dx) Start: 01-05-2022 End: 01-06-2022 ambulatory SANDEEP LENZ Facility:[facility] Start: 12-27-2021 End: 12-27-2021 Patient encounter procedure MD Eduardo Sharpe Work Phone: [facility] Start: 12-22-2021 End: 01-19-[address] EDUARDO SHARPE Facility:[facility] Start: 11-30-2021 End: 11-30-2021 ambulatory Brayden Hernandez Other [facility] Other Start: 11-30-2021 Office outpatient vi sit 15 minutes Brayden Hernandez [facility] Start: 11-21-2021 End: 12-21-2021 ambulatory SHAIKH Barbara AGUIAR Facility:[facility] Start: 11-17-2021 End: 11-17-2021 Patient encounter procedure MD Eduardo Sharpe Work Phone: [facility] Start: 11-09-2021 End: 11-11-2021 Evaluation and management of inpatient MD Eduardo Sharpe Work Phone: [facility] Start: 11-09-2021 End: 11-09-2021 ambulatory [...] Detail Author Start: 08-19-2026 [facility] Start: 05-20-2026 DIABETES SCREEN DIABETES SCREEN [place] Start: 05-20-2026 [facility] Start: 04-30-2026 DIABETES SCREEN DIABETES SCREEN [place] Start: 04-29-2026 DIABETES SCREEN DIABETES SCREEN [place] Start: 01-08-2025 DIABETES SCREEN DIABETES SCREEN [place] Start: 08-19-2024 Hemoglobin/Hematocrit Hemoglobin/Hem [facility] Start: 08-19-2024 Serum Creatinine Serum Creatinine [facility] Start: 05-20-2024 HEMOGLOBIN/HEMATOCRIT HEMOGLOBIN/HEM [facility] Start: 05-20-2024 SERUM CREATININE SERUM CREATININE [facility] Start: 04-30-2024 HEMOGLOBIN/HEMATOCRIT HEMOGLOBIN/HEM [facility] Start: 04-30-2024 SERUM CREATININE SERUM CREATININE [facility] Start: 05-24-2023 Influenza vaccination [facility] Start: 04-29-2023 End: 06-29-2023 Parathyrin related protein [Moles/volume] in Serum or Plasma PTH RELATED PEPTIDE Lab Routine Malignant neoplasm of upper-outer quadrant of left breast in female, estrogen receptor positive (HCC) Hypercalcemia Expected: 04/29/2023, Expires: 06/29/2023 [facility] Work Phone: Comment on above: Expected: 04/29/2023 , Expires: 06/29/2023 Start: 04-29-2023 End: 06-29-2023 PTH, INTACT (WITHOUT CALCIUM) PTH, INTACT (WITHOUT CALCIUM) Lab Routine Malignant neoplasm of upper-outer quadrant of left breast in female, estrogen receptor positive (HCC) Hypercalcemia Expected: 04/29/2023, Expires: 06/29/2023 [facility] Work Phone: Comment on above: Expected: 04/29/2023 , Expires: 06/29/2023 Start: 09-23-2022 ADVANCE DIRECTIVE DISCUSSION ADVANCE DIRECTIVE DISCUSSION [facility] Start: 09-23-2022 DEPRESSION ASSESSMENT DEPRESSION ASS ESSMENT [facility] Start: 07-09-2022 End: 09-08-2022 25-hydroxyvitamin D3 [Mass/volume] in Serum or Plasma VITAMIN D 25 HYDROXY Lab Routine Malignant neoplasm of upper-outer quadrant of left breast in female, estrogen receptor positive (HCC) Encounter for screening for osteoporosis Hypercalcemia Expected: 07/09/2022 (Approximate), Expires: 09/08/2022 [facility] Work Phone: Comment on above: Expected: 07/09/2022 (Approximate), Expires: 09/08/2022 Start: 07-09-2022 End: 09-08-2022 Calcitriol [Mass/volume] in Serum or Plasma VITAMIN D1 25-DIHYDR Lab Routine Malignant neoplasm of upper-outer quadrant of left breast in female, estrogen receptor positive (HCC) Encounter for screening for osteoporosis Expected: 07/09/2022 (Approximate), Expires: 09/08/2022 [facility] Work Phone: Comment on above: Expected: 07/09/2022 (Approximate), Expires: 09/08/2022 Start: 07-09-2022 End: 06-30-2023 CBC W Auto Differential panel - Blood CBC + DIFF Lab Routine Malignant neoplasm of upper-outer quadrant of left breast in female, estrogen receptor positive (HCC) Encounter for screening for osteoporosis Expected: 07/09/2022 (Approximate), Expires: 06/30/2023 [facility] Work Phone: Comment on above: Expected: 07/09/2022 (Approximate), Expires: 06/30/2023 Start: 07-09-2022 End: 06-30-2023 Comprehensive metabolic 2000 panel - Serum or Plasma COMP METABOLIC PANEL Lab Routine Malignant neoplasm of upper-outer quadrant of left breast in female, estrogen receptor positive (HCC) Encounter for screening for osteoporosis Expected: 07/09/2022 (Approximate), Expires: 06/30/2023 [facility] Work Phone: Comment on above: Expected: 07/09/2022 (Approximate), Expires: 06/30/2023 Start: 06-23-2022 Influenza vaccination Influenza Vacc ine (#1) [facility] Start: 05-24-2022 Influenza vaccination INFLUENZA (#1) [facility] Start: 09-23-2021 ADVANCE DIRECTIVE DISCUSSION ADVANCE DIRECTIVE DISCUSSION [facility] Start: 09-23-2021 DEPRESSION ASSESSMENT DEPRESSION ASS ESSMENT [facility] Start: 03-10-2021 Adult depression screening assessment DEPRESSION SCREENING [facility] Start: 06-17-2019 Pneumococcal Vaccine : 65+ (2 - PPSV23 or PCV20) Pneumococcal Vaccine: 65+ (2 - PPSV23 or PCV20) [facility] Start: 06-17-2019 PNEUMOCOCCAL: 65+ (2 - PPSV23 if available, else PCV20) PNEUMOCOCCAL: 65+ (2 - PPSV23 if available, else PCV20) [facility] Start: 06-17-2019 PNEUMOCOCCAL: 65+ (2 - PPSV23 or PCV20) PNEUMOCOCCAL: 65+ (2 - PPSV23 or PCV20) [facility] Start: 2009 BONE DENSITY BONE DENSITY [facility] Start: 2009 Bone Density Screening Bone Density Screening [facility] Start: 2009 Pneumococcal vaccination Pneumococcal Vaccine(s) (65+ yrs) (1 - PCV) [facility] Start: 2009 PNEUMOVAX AGE 65 AND OVER WITH 5YR LOOKBACK (#1) PNEUMOVAX AGE 65 AND OVER WITH 5YR LOOKBACK (#1) [facility] Start: 2009 Screening for osteoporosis Bone Densitometry [facility] Start: 2004 RSV Vaccine (1 - 1-d ose 60+ series) RSV Vaccine (1 - 1-dose 60+ series) [facility] Start: 1994 Shingles (RZV) Vacci ne (1 of 2) Shingles (RZV) Vaccine (1 of 2) 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 Start: 1962 Tetanus + diphtheria + acellular pertussis vaccine (product) Tdap Booster [facility] Start: 1956 COVID-19 VACCINE (1) COVID-19 VACCIN E (1) [facility] Start: 04-09-1945 COVID-19 Vaccine (#1) COVID-19 Vacci ne (#1) [facility] End: 05-28-2024 Bone &/joint imaging whole body NM BONE WHOLE BODY Radiology Routine Malignant neoplasm of breast in female, estrogen receptor positive, unspecified laterality, unspecified site of breast (HCC) 1 Occurrences starting 04/29/2023 until 05/28/2024 [facility] Work Phone: Comment on above: 1 Occurrences starti ng 04/29/2023 until 05/28/2024 End: 05-19-2024 Calcium [Mass/volume] in Serum or Plasma CALCIUM TOTAL BLD Lab Routine Hypercalcemia Malignant neoplasm of upper-outer quadrant of left breast in female, estrogen receptor positive (HCC) Stage 3 chronic kidney disease, unspecified whether stage 3a or 3b CKD (HCC) Every 6 weeks for 9 Occurrences starting 05/20/2023 until 05/19/2024 [facility] Work Phone: Comment on above: Every 6 [...] Occurrences starting 05/20/2023 until 05/19/2024, 1 completed [facility] Work Phone: Comment on above: Every 6 [...] Occurrences starting 05/20/2023 until 05/19/2024, 1 completed [facility] Work Phone: Comment on above: Every 6 [...] Occurrences starting 05/20/2023 until 05/19/2024, 1 completed [facility] Work Phone: Comment on above: Every 6 weeks for 9 Occurrences starting 05/20/2023 until 05/19/2024, 1 completed Parathyrin related protein [Moles/volume] in Serum or Plasma PTH RELATED PEPTIDE Lab Routine Malignant neoplasm of upper-outer quadrant of left breast in female, estrogen receptor positive (HCC) Hypercalcemia 04/30/2023 3:55 PM EDT [facility] Work Phone: Patient Education Heart Healthy Diet [facility] Work Phone: Patient referral [facility] Work Phone: [facility] Immunizations Immunization Date Immunization Notes Care Provider Fa [facility] 07-11-2022 influenza, high dose seasonal, preservative-free Clemente Srivastava RN [facility] 07-11-2022 pneumococcal polysaccharide vaccine, 23 valent Clemente Srivastava RN [facility] 07-11-2022 influenza virus vacc ine, unspecified formulation Sandeep Lenz MD Work Phone: [facility] 07-07-2021 influenza, high-dose , quadrivalent vaccine (FLUZONE HIGH DOSE QUADRIVALENT) Sandeep Lenz MD Work Phone: [facility] 07-07-2021 unknown vaccine or i mmune globulin Clemente Srivastava RN [facility] 06-12-2021 influenza, high dose seasonal, preservative-free Clemente Srivastava RN [facility] 06-22-2020 influenza, high dose seasonal, preservative-free Sandeep Lenz MD Work Phone: [facility] 06-15-2020 Seasonal trivalent influenza vaccine, adjuvanted, preservative free Sandeep Lenz MD Work Phone: [facility] 06-17-2018 influenza, high dose seasonal, preservative-free Sandeep Lenz MD Work Phone: [facility] 06-17-2018 pneumococcal conjuga te vaccine, 13 valent Sandeep Lenz MD Work Phone: [facility] 07-09-2017 influenza, high dose seasonal, preservative-free Sandeep Lenz MD Work Phone: [facility] 07-09-2017 pneumococcal conjuga te vaccine, 13 valent Sandeep Lenz MD Work Phone: [facility] Payers Date Payer Category Payer Unknown MEDICA RE SUPPLEMENT [id number] 2014-Present [phone] [address] [address] [place] [address] Indemnity [id number] 2014 Unknown MEDICA RE SUPPLEMENT [id number] 2014-Present [phone] [address] [address] [place] [address] Indemnity [id number] 2009 Medicare MEDICARE MEDICAR E A AND B [id number] 2009-Present [phone] [address] [address] [place] [address] Medicare [id number] 2009 Medicare [id number] 1959 Medicare [id number] 1959 Unknown [id number] 1959 Unknown [id number] 1944 Unknown [id number] 2.16.840.1.124547.3.579.2.647 1944 Unknown [id number] 2.16.840.1.807643.3.579.2.732 1944 Unknown [id number] 2.16.840.1.326218.3.579.2.593 1944 Unknown [id number] 2.16.840.1.439574.3.579.2.593 1944 Unknown [id number] 2.16.840.1.542111.3.579.2.593 1944 Unknown [id number] 2.16.840.1.008706.3.579.2.593 1944 Unknown [id number] 2.16.840.1.542644.3.579.2.593 1944 Unknown [id number] 2.16.840.1.351530.3.579.2.593 1944 Unknown [id number] 2.16.840.1.072866.3.579.2.593 1944 Unknown [id number] 2.16.840.1.493284.3.579.2.593 1944 Unknown [id number] 2.16.840.1.171560.3.579.2.593 1944 Unknown [id number] 2.16.840.1.968474.3.579.2.593 1944 Unknown [id number] 2.16.840.1.480054.3.579.2.593 1944 Unknown [id number] 2.16.840.1.719935.3.579.2.593 1944 Unknown [id number] 2.16.840.1.525283.3.579.2.593 1944 Unknown [id number] 2.16.840.1.232200.3.579.2.593 1944 Unknown [id number] 2.16.840.1.634253.3.579.2.593 1944 Unknown [id number] 2.16.840.1.450244.3.579.2.593 1944 Unknown [id number] 2.16.840.1.785361.3.579.2.593 1944 Unknown [id number] 2.16.840.1.371265.3.579.2.593 1944 Unknown [id number] 2.16.840.1.341117.3.579.2.593 1944 Unknown [id number] 2.16.840.1.661544.3.579.2.593 1944 Unknown [id number] 2.16.840.1.352441.3.579.2.593 1944 Unknown [id number] 2.16.840.1.845399.3.579.2.593 1944 Unknown [id number] 2.16.840.1.972749.3.579.2.593 Medicare Self Pay [id number] Self-pay Self Pay [id number] Unknown [id number] Unknown [id number] Social History Date Type Detail Facility Start: 11-10-2021 End: 04-29-2023 Tobacco smoking status NHIS Never smoked tobacco (finding) [facility] Start: 1945 Sex Assigned At Female F [facility] Start: 06-12-2018 End: 04-29-2023 Tobacco use and exposure Smokeless tobacco non-user [facility] Start: 01-08-2022 End: 08-19-2023 Alcohol intake Current drinker of alcohol (finding) [facility] Start: 06-12-2018 History SDOH Alcohol Comment very rare [facility] Start: 1945 Sex Assigned At Not on file [facility] Start: 12-29-2021 End: 01-08-2022 Exposure to SARS-CoV-2 (event) Not sure [facility] Start: 04-29-2023 End: 08-19-2023 Sex Assigned At [facility] Tobacco smoking status MTIS Tobacco smoking consumption unknown [facility] Start: 04-29-2023 End: 08-19-2023 History of Social function [facility] Adult Depression Screening Assessment 0 [facility] NEGATED: Highlighted rowStart: NINF History of tobacco use Passive smoker [facility] Goals Date Patient Goal Desired Activity /State Functional Status Date Assessment Result Facility 11-09-2021 Functional status Patient at [facility] Work Phone: Mental Status Date Assessment Result Facility 11-09-2021 Cognitive function Cognitive Sta tus Patient at [facility] Work Phone: Clinical Notes 09-16-2020 to 08-19-2023 Telephone Encounter - Clemente Srivastava RN - 08/19/2023 2:47 PM ESTTelephone Encounter - Clemente Srivastava RN - 08/19/2023 2:47 PM ESTTelephone Encounter - Jennifer Aviles - 06/10/2023 12:53 PM EDT Note Date & Type Note Facility 08-19-2023 Note HNO ID: [id number] Author: Sandeep Lenz MD Service: ? Author Type: Physician Type: Progress Notes Filed: 08/20/2023 7:07 AM Note Text: [facility] NAME: Andrew Barros CLINIC NO.: [id number] DATE OF SERVICE: August 19, 2023 (Eduardo) [...] outer quadrant, invasive ductal carcinoma, ER postive, IA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 Mammograms at [facility] on 01/04/2021 Bi-Rads 2 benign. __ REVIEW [...] or petechiae. ALLERGIES (more content not included)... [facility] 08-19-2023 Miscellaneous Notes Pt aware of Orlando's message. She denies any additional questions, needs or concerns at this time. Clemente Srivastava RN ----- Message from Sandeep Lenz MD sent at 08/19/2023 2:33 PM EST ----- Calcium janki normal. Kidney function is stable documented in this encounter [facility] 06-10-2023 Miscellaneous Notes Called Nephrology office spoke [...] Thanks! Samina Anderson documented in this encounter [facility] 05-21-2023 Miscellaneous Notes Pt aware of results and denies any questions or concerns at this time. She was transferred to [facility] to set up Q 6 week lab appts as requested. Clemente Srivastava RN ----- Message from Sandeep Lenz MD sent at 05/21/2023 10:15 AM EDT ----- Calcium was improved. - kidney function stable. CBC was normal. documented in this encounter [facility] 05-20-2023 Note HNO ID: [id number] Author: Sandeep Lenz MD Service: ? Author Type: Physician Type: Progress Notes Filed: 05/30/2023 5:58 AM Note Text: [facility] NAME: Papo Andrew [facility] NO.: [id number] DATE OF SERVICE: May 20, 2023 (Eduardo) [...] outer quadrant, invasive ductal carcinoma, ER postive, IA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 Mammograms at [facility] on 01/04/2021 Bi-Rads 2 benign. REVIEW OF [...] wounds or petechiae. ALLERGIES: ALLERGIES Allergen Reactions Bijumea-Xjz-Lyx Red* Unknown Other reaction(s): AOF MEDICATIONS: anastrozole [...] See your shae (more content not included)... [facility] 05-20-2023 Instructions Sandeep Lenz MD - 05/20/2023 3:59 PM EDT Continue Arimidex. Refer to nephrology for hypercalcemia and kidney failure Repeat labs today RTC in 3 months - repeat labs documented in this encounter [facility] 05-20-2023 History of Presen t illness Narrative [facility] NAME: Andrew Barros [facility] NO.: [id number] DATE OF SERVICE: May 20, 2023 (Eduardo) [...] outer quadrant, invasive ductal carcinoma, ER postive, IA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 Mammograms at [facility] on 01/04/2021 Bi-Rads 2 benign. REVIEW OF [...] wounds or petechiae. ALLERGIES: ALLERGIES Allergen Reactions Vgwhyiy-Thx-Bai Red* Unknown Other reaction(s): AOF MEDICATIONS: anastrozole [...] which included preparing to see the patient, migw-pn-aveg patient care, completing clinical documentation, obtaining and/or reviewing separately obtained history, performing a medically appropriate examination, communicating results to the patient/family/caregiver and care coordination (not separately reported). Sandeep Lenz MD, CPE Services Provided at: [place], [place] & [place], [place] CC: Eduardo Sharpe MD [address] [facility] [id number] documented in this encounter [facility] 05-09-2023 Note HNO ID: [id number] Author: Aleida Vargas LSW Service: ? Author Type: Insulation Packer Type: Progress Notes Filed: 05/09/2023 11:00 AM Note Text: Patient appears on the [facility] First Time Treatment List for a non-oncology treatment. No psychosocial assessment is indicated. DAPHNE Gupta [facility] 05-09-2023 History of Presen t illness Narrative Patient appears on the [facility] First Time Treatment List for a non-oncology treatment. No psychosocial assessment is indicated. DAPHNE Gupta documented in this encounter [facility] 04-29-2023 Note HNO ID: [id number] Author: Sandeep Lenz MD Service: ? Author Type: Physician Type: Progress Notes Filed: 05/05/2023 6:04 PM Note Text: NAME: Andrew Barros [facility] NO.: [id number] DATE OF SERVICE: April 29, 2023 (Eduardo) [...] outer quadrant, invasive ductal carcinoma, ER postive, IA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 Mammograms at [facility] on 01/04/2021 Bi-Rads 2 benign. REVIEW OF [...] of recurring mass. ALLERGIES: ALLERGIES Allergen Reactions Effiyzm-Xhy-Ref Red* Unknown Other reaction(s): AOF MEDICATIONS: doxazosin [...] mouth twice elaine (more content not included)... [facility] 04-29-2023 Instructions Sandeep Lenz MD - 04/29/2023 4:09 PM EDT Continue Arimidex. Stop Calcium Continue Vitamin D. Zometa for hypercalcemia later this week Repeat labs and tumor markers prior to zometa Bone scan - TBH is fine. RTC after Bone scan documented in this encounter [facility] 04-29-2023 History of Presen t illness Narrative Images from the original note were not included. NAME: BarrosAndrew CLINIC NO.: [id number] DATE OF SERVICE: April 29, 2023 (Eduardo) [...] outer quadrant, invasive ductal carcinoma, ER postive, IA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 Mammograms at [facility] on 01/04/2021 Bi-Rads 2 benign. REVIEW OF [...] of recurring mass. ALLERGIES: ALLERGIES Allergen Reactions Oqudmiu-Cbv-Vyn Red* Unknown Other reaction(s): AOF MEDICATIONS: doxazosin [...] acetaminophen 650 mg tab(s) (TYLENOL), DISCONTINUED: zoledronic gb-kelztigr-0.9NaCl 4 mg iv piggyback 100 mL (ZOMETA) (E83.52) Hypercalcemia Plan: CA 27.29 BLOOD, CA 15-3 BLD, CBC + DIFF, COMP METABOLIC PANEL, PTH, INTACT (WITHOUT CALCIUM), PTH RELATED PEPTIDE, PTH, INTACT (WITHOUT CALCIUM), DISCONTINUED: PHARMACY COMMUNICATION PATIENT ARRIVED, DISCONTINUED: acetaminophen 650 mg tab(s) (TYLENOL), DISCONTINUED: zoledronic yn-jstsrhbe-1.9NaCl 4 mg iv piggyback 100 mL (ZOMETA) [...] which included preparing to see the patient, hcvr-ji-cftn patient care, completing clinical documentation, obtaining and/or reviewing separately obtained history, performing a medically appropriate examination, communicating results to the patient/family/caregiver and care coordination (not separately reported). Sandeep Lenz MD, CPE Services Provided at: [place], [place] & [place], [place] CC: Eduardo Sharpe MD [address] [facility] [address] documented in this encounter [facility] 04-01-2023 Note [place] Cardiology - [facility] Subjective Andrew Barros is a [...] General: Skin i (more content not included)... [facility] 01-14-2023 Note Cardiology Clinic No te [...] feeling fatigued. -She was recently discharged from [facility] d/t PNA and sepsis. She was also [...] perfused Neuro: A&Ox3, (more content not included)... [facility] 09-03-2022 Note Patient here for 3 m o follow up PAF and to re-discuss the Watchman device. Most recent hospital discharge was 08/24/22 from [facility]. She was started on digoxin. She saw Dr. Sharpe last week for hospital follow up and her amlodipine was put on hold for now due to hypotension. C/o fatigue. She's using O2 at night. Review of Systems Constitutional: Positive for malaise/fatigue and weight loss. Musculoskeletal: Positive for muscle weakness. All other systems reviewed and are negative. [facility] 09-03-2022 Note Cardiovascular Medic eliud [facility] Cardiology SUBJECTIVE Chief Complaint Patient presents with Hospital Follow-up Andrew Barros is a 76 y.o. female here for follow-up. HPI Patient here for 3 mo follow up PAF and to re-discuss the Watchman device. Most recent hospital discharge was 08/24/22 from [facility]. She was started on digoxin. She saw Dr. Sharpe last week for hospital follow up and her amlodipine was put on hold for now due to hypotension. C/o fatigue. She's using O2 at night. 09/03/2022 -She c/o feeling fatigued. -She was recently discharged from [facility] d/t PNA and sepsis. She was also [...] Alcohol use: Not Currently Allergies Allergen Reactions Bqnxvez-Jhi-Ory Reductase Inhibitors Other Other reaction(s): AOF ROS [...] TAKE 1 TABL (more content not included)... [facility] 06-29-2022 Miscellaneous Notes Patient has an appt on 07/09/22. Would you like labs, if so place orders. Arabella Cotter MA documented in this encounter [facility] 05-19-2022 History of Presen t illness Narrative Images from the original note were not included. EMERGENCY TRIAGE, TREAT AND TRANSPORT (ET3) DOCUMENTATION OF TELEHEALTH VISIT Date / Time: 05/19/2022 / 1130 Name: Andrew Barros : 1945 SSN: (Not on file) EMS Agency: [facility] [x] Verbal consent obtained [] Implied [...] Kristian Mcwilliams MD documented in this encounter [facility] 01-08-2022 History of Presen t illness Narrative Images from the original note were not included. Radiation Oncology - Follow Up Note PATIENT NAME: Andrew Barros PATIENT DIAGNOSIS/PATIENT IDENTIFICATION: Ms. Barros is a 76-year old female with Infiltrating ductal carcinoma of the Left breast, UOQ, pathologic stage IIA (pT1c pN1a M0), ER-positive, IA-positive and Her2/lauren not amplified, s/p partial mastectomy [...] was otherwise noncontributory. ALLERGIES ALLERGIES Allergen Reactions Uimjyig-Vhx-Bco Red* Unknown Other reaction(s): AOF MEDICATIONS: Current [...] pathologic stage IIA (pT1c pN1a M0), ER-positive, IA-positive and Her2/lauren not amplified, s/p partial mastectomy [...] which included preparing to see the patient, dbdg-fa-xenw patient care and counseling and educating the patient/family/caregiver. This document has been created with the use of voice recognition technology. It may contain inaccuracies, misspellings, inaccurate syntax or inappropriate word context that are a result of the inadequacies/shortcomings of said technology/software. documented in this encounter [facility] 01-08-2022 History of Presen t illness Narrative Images from the original note were not included. NAME: Andrew Barros [facility] NO.: [id number] DATE OF SERVICE: January 08, 2022 Some [...] outer quadrant, invasive ductal carcinoma, ER postive, IA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 Mammograms at [facility] on 01/04/2021 Bi-Rads 2 benign. REVIEW OF [...] of recurring mass. ALLERGIES: ALLERGIES Allergen Reactions Ctfygeo-Eza-Pzs Red* Unknown Other reaction(s): AOF MEDICATIONS: amLODIPine [...] which included preparing to see the patient, vaxm-du-cszb patient care, completing clinical documentation, obtaining and/or reviewing separately obtained history, performing a medically appropriate examination, communicating results to the patient/family/caregiver and care coordination (not separately reported). Sandeep Lenz MD, CPE Services Provided at: [place], [place] & [place], [place] CC: Eduardo Sharpe MD [address] [facility] [id number] documented in this encounter [facility] 01-08-2022 Nurse Note Patient has had brain bleeds since being here last she is seeing Dr. Hernandez , she has been in [facility] [place] due to the bleeds. Arabella Cotter MA documented in this encounter [facility] 11-30-2021 Evaluation note Encounter Date Diagnosis Assessment [...] present CT and compared to the previous. [employer] Other 12-25-2020 NoteMicrobiology PROCEDURE: Blood Culture Charcoal [R1] SOURCE: Blood BODY SITE: Arm L COLLECTED DATE/TIME: 09/09/2020 13:00 EST RECEIVED DATE/TIME: 09/09/2020 14:05 EST START DATE/TIME: 09/09/2020 14:05 EST FREE TEXT SOURCE: Koko Gallardo DO, DO, John FINAL REPORTS Final Report [] Verified Date/Time: 09/16/2020 16:03 EST No growth at 7 days. Performing Locations R1: [facility]: [facility], [address] [place] [address], [address] [place] [address], [facility] Hospital[facility] on above:Performed By: #### [id number] ####[facility] [address] [place] [address] [id number] NoteMicrobiology PROCEDURE: Blood Culture Charcoal [R1] SOURCE: Blood BODY SITE: Hand L COLLECTED DATE/TIME: 09/09/2020 13:49 EST RECEIVED DATE/TIME: 09/09/2020 14:06 EST START DATE/TIME: 09/09/2020 14:06 EST FREE TEXT SOURCE: Koko Pettit DO, DO, John FINAL REPORTS Final Report [] Verified Date/Time: 09/16/2020 16:01 EST No growth at 7 days. Performing Locations R1: This test was performed at: [facility], [address] [place] [address], [address] [place] [address], [facility] HospitalComment on above:Performed By: #### [id number] #### [facility] [address] [place] [address] [id number] note* Diagnosis Onset Date Resolution Status Atrial fibrillation acute Diabetes acute Hypertension acute Intracerebral hemorrhage acu te Nontraumatic intracerebral hemorrhage acute [facility] Work Phone: Evaluation note* Diagnosis Malignant neoplasm of upper-outer quadrant of left breast in female, estrogen receptor positive (HCC)- Primary Encounter for screening for osteoporosis Special screening for osteoporosis Hypercalcemia [facility] Diagnosis Malignant neoplasm of upper-outer quadrant of left breast in female, estrogen receptor positive (HCC)- Primary documented in this encounter [facility] note* Diagnosis Dyspnea, unspecified type- Primary documented in this encounter [facility] note* Diagnosis Malignant neoplasm of upper-outer quadrant of left breast in female, estrogen receptor positive (HCC)- Primary Encounter for screening for osteoporosis Special screening for osteoporosis Hypercalcemia Hypercalcemia documented in this encounter [facility] note* Diagnosis Malignant neoplasm of upper-outer quadrant of left breast in female, estrogen receptor positive (HCC) documented in this encounter [facility] note* Diagnosis Hypercalcemia- Primary Other specified menopausal and perimenopausal disorders Malignant neoplasm of upper-outer quadrant of left breast in female, estrogen receptor positive (HCC) documented in this encounter [facility] note* Diagnosis Malignant neoplasm of upper-outer quadrant of left breast in female, estrogen receptor positive (HCC)- Primary Hypercalcemia Malignant neoplasm of breast in female, estrogen receptor positive, unspecified laterality, unspecified site of breast (HCC) Stage 3 chronic kidney disease, unspecified whether stage 3a or 3b CKD (HCC) documented in this encounter [facility] note* Diagnosis Malignant neoplasm of upper-outer quadrant of left breast in female, estrogen receptor positive (HCC) documented in this encounter [facility] note* Diagnosis Hypercalcemia- Primary Malignant neoplasm of upper-outer quadrant of left breast in female, estrogen receptor positive (HCC) Stage 3 chronic kidney disease, unspecified whether stage 3a or 3b CKD (HCC) documented in this encounter [facility] noteNo InformationNort EQUIP Advantage Other History general Narrative - Reported* Type Description Date Medical History hypertension Medical History heart disease Medical History Esophageal reflux Medical History diabetes mallitus Medical History cancer Surgical History breast cancer Hospitalization History See Above [employer] Other reason for referral (narrative)* Diagnostic Procedure Only (Routine) - Pending Review Specialty Diagnoses / Procedures Referred By Contac t Referred To Contact MOLECULAR & FUNCTIONAL IMAGING Diagnoses Malignant neoplasm of breast in female, estrogen receptor positive, unspecified laterality, unspecified site of breast (HCC) Procedures NM BONE WHOLE BODY BONE &/JOINT IMAGING WHOLE BODY Sandeep Lenz MD [address] [place] [address] [address] [place] [address] [facility] [address] [place] [address] Referral ID Status Reason Start Date Expiration Date Visits Requested Visits Authorized [id number] Pending Review Auto-Generat ed Referral 04/29/2023 05/28/2024 1 1 [facility] Summary Purpose Family History No Family History [...] 04/30/2023 2:46 PM EDT 650 mg zoledronic [id number] 4 mg iv piggyback 100 mL (ZOMETA) [...] HIGH MDM 60-74 MINUTES Sandeep Lenz MD [address] [place] [address] [address] [place] [address] Referral ID Status Reason Start Date Expiration Date Visits Requested Visits Authorized [id number] Authorized PCP Requested Referral 05/20/2023 05/19/2024 1 1 Additional Source Comments INFORMATION SOURCE (unrecogn ized section and content) DATE CREATED AUTHOR 01/18/2021 Guilherme Siddiqi [facility] DATE CREATED AUTHOR AUTHOR'S ORGANIZ ATION 01/10/2022 [facility] DATE CREATED AUTHOR AUTHOR'S ORGANIZ ATION 05/15/2022 [facility] DATE CREATED AUTHOR AUTHOR'S ORGANIZ ATION 05/22/2022 [facility] DATE CREATED AUTHOR AUTHOR'S ORGANIZ ATION 09/24/2022 [facility] DATE CREATED AUTHOR AUTHOR'S ORGANIZ ATION 04/01/2023 [facility] DATE CREATED AUTHOR AUTHOR'S ORGANIZ ATION 08/20/2023 [facility] Care Teams (unrecognized sec tion and content) [...] Eduardo Sharpe MD Primary Care Provider Active Road Passenger Firer Relationship Specialty Start Date End Date Eduardo Sharpe MD [address] [id number] PCP - General Family Practice 05/30/18 Road Passenger Firer Relationship Specialty Start Date End Date Eduardo Sharpe MD [address] [id number] PCP - General Family Practice 05/30/18 Road Passenger Firer Relationship Specialty Start Date End Date Eduardo Sharpe MD [address] [id number] PCP - General Family Medicine 05/30/18 Road Passenger Firer Relationship Specialty Start Date End Date Eduardo Sharpe MD [address] [id number] PCP - General Family Medicine 05/30/18 Road Passenger Firer Relationship Specialty Start Date End Date Eduardo Sharpe MD PCP - General Family Medicine 05/30/18 Road Passenger Firer Relationship Specialty Start Date End Date Eduardo Sharpe MD PCP - General Family Medicine 05/30/18 Road Passenger Firer Relationship Specialty Start Date End Date Eduardo Sharpe MD PCP - General Family Medicine 05/30/18 Road Passenger Firer Relationship Specialty Start Date End Date Eduardo Sharpe MD PCP - General Family Medicine 05/30/18 Road Passenger Firer Relationship Specialty Start Date End Date Eduardo Sharpe MD PCP - General Family Medicine 05/30/18 Road Passenger Firer Relationship Specialty Start Date End Date Eduardo Sharpe MD PCP - General Family Medicine 05/30/18 Road Passenger Firer Relationship Specialty Start Date End Date Eduardo Sharpe MD PCP - General Family Medicine 05/30/18 Road Passenger Firer Relationship Specialty Start Date End Date Eduardo Sharpe MD PCP - General Family Medicine 05/30/18 Source Comments (unrecognize d section and content) In the event this informatio n is protected by the Federal Confidentiality of Alcohol and Drug Abuse Patient Records regulations: The Federal rules restrict any use of the information to criminally investigate or prosecute any alcohol or drug abuse patient.[facility] the event this information is protected by the Federal Confidentiality of Alcohol and Drug Abuse Patient Records regulations: The Federal rules restrict any use of the information to criminally investigate or prosecute any alcohol or drug abuse patient.[facility] the event this information is protected by the Federal Confidentiality of Alcohol and Drug Abuse Patient Records regulations: The Federal rules restrict any use of the information to criminally investigate or prosecute any alcohol or drug abuse patient.[facility] the event this information is protected by the Federal Confidentiality of Alcohol and Drug Abuse Patient Records regulations: The Federal rules restrict any use of the information to criminally investigate or prosecute any alcohol or drug abuse patient.[facility] the event this information is protected by the Federal Confidentiality of Alcohol and Drug Abuse Patient Records regulations: The Federal rules restrict any use of the information to criminally investigate or prosecute any alcohol or drug abuse patient.[facility] the event this information is protected by the Federal Confidentiality of Alcohol and Drug Abuse Patient Records regulations: The Federal rules restrict any use of the information to criminally investigate or prosecute any alcohol or drug abuse patient.[facility] the event this information is protected by the Federal Confidentiality of Alcohol and Drug Abuse Patient Records regulations: The Federal rules restrict any use of the information to criminally investigate or prosecute any alcohol or drug abuse patient.[facility] the event this information is protected by the Federal Confidentiality of Alcohol and Drug Abuse Patient Records regulations: The Federal rules restrict any use of the information to criminally investigate or prosecute any alcohol or drug abuse patient.[facility] the event this information is protected by the Federal Confidentiality of Alcohol and Drug Abuse Patient Records regulations: The Federal rules restrict any use of the information to criminally investigate or prosecute any alcohol or drug abuse patient.[facility] the event this information is protected by the Federal Confidentiality of Alcohol and Drug Abuse Patient Records regulations: The Federal rules restrict any use of the information to criminally investigate or prosecute any alcohol or drug abuse patient.[facility] the event this information is protected by the Federal Confidentiality of Alcohol and Drug Abuse Patient Records regulations: The Federal rules restrict any use of the information to criminally investigate or prosecute any alcohol or drug abuse patient.[facility] the event this information is protected by the Federal Confidentiality of Alcohol and Drug Abuse Patient Records regulations: The Federal rules restrict any use of the information to criminally investigate or prosecute any alcohol or drug abuse patient.[facility] Reason for Visit (unrecogniz ed section and [...] and perimenopausal disorders Hypercalcemia Sandeep Lenz MD [address] [place] [address] [address] [place] [address] [employer] [employer] [address] [place] [address] Referral ID Status Reason Start Date Expiration Date V isits Requested Visits Authorized [id number] Authorized 04/29/2023 07/28/2023 99 99 Reason Comments [...] BE BASED ON THE PRIMARY CLINICAL RECORDS. [facility] [employer] provides no warranty or guarantee of the accuracy or completeness of information in this document.
[2023-09-29] MEDS: LACTATED RINGER'S SOLUTION 1,000 ML 100 ML IV ×2 (12:50→22:21)
[2023-09-29 12:54] LABS: Lactate/Lactic Acid 1.7 mmol/L (0.4-2.0)
[2023-09-29] MEDS: METRONIDAZOLE 250 MG TABLET 500 MG PO ×2 (14:26→21:02)
[2023-09-29 16:29] LABS: Glucometer 171 mg/dL (74-106)
[2023-09-29] MEDS: BENZONATATE 100 MG CAPSULE 200 MG PO (18:49)
[2023-09-29] MEDS: CARVEDILOL 25 MG TABLET PO (18:49)
[2023-09-29] MEDS: INSULIN ASPART 300 UNIT/3 ML PEN SUBQ (18:49)
[2023-09-29 19:28] LABS: Adenovirus F 40/41 NOT DETECTED (NOT DETECTE); Astrovirus NOT DETECTED (NOT DETECTE); Campylobacter NOT DETECTED (NOT DETECTE); Cryptosporidium NOT DETECTED (NOT DETECTE); Cyclospora cayetanensis NOT DETECTED (NOT DETECTE); Entamoeba histolytica NOT DETECTED (NOT DETECTE); Enteroaggregative E.coli NOT DETECTED (NOT DETECTE); Enteropathogenic E.coli NOT DETECTED (NOT DETECTE); Enterotoxigenic E. coli NOT DETECTED (NOT DETECTE); Giardia lamblia NOT DETECTED (NOT DETECTE); Norovirus GI/GII NOT DETECTED (NOT DETECTE); Plesiomonas shigelloides NOT DETECTED (NOT DETECTE); Rotavirus A NOT DETECTED (NOT DETECTE); Salmonella NOT DETECTED (NOT DETECTE); Sapovirus NOT DETECTED (NOT DETECTE); Shiga-like toxin-producing E.C NOT DETECTED (NOT DETECTE); Shigella/Enteroinvasive E.coli NOT DETECTED (NOT DETECTE); Vibrio NOT DETECTED (NOT DETECTE); Vibrio cholerae NOT DETECTED (NOT DETECTE); Yersinia enterocolitica NOT DETECTED (NOT DETECTE)
[2023-09-29] MEDS: FERROUS SULFATE 325 MG TABLET PO (21:02)
[2023-09-29 21:09] LABS: Glucometer 94 mg/dL (74-106)
[2023-09-29 21:14] LABS: Occult Blood Positive
[2023-09-30] VITALS (13 sets, daily range): BP systolic 136–154; BP diastolic 72–75; PULSE 66–80; RESP 18; TEMP 36.4–36.6; O2SAT 91–95
[2023-09-30] MEDS: CARVEDILOL 25 MG TABLET PO (05:41)
[2023-09-30] MEDS: METRONIDAZOLE 250 MG TABLET 500 MG PO ×2 (05:41→13:19)
[2023-09-30] MEDS: OMEPRAZOLE 40 MG CAPSULE.DR PO (05:41)
[2023-09-30 07:29] LABS: Glucometer 142 mg/dL (74-106)
--- NOTE | 2023-09-30 08:13 | P.DS_ITS ---
DS: Providers Provider Date of admission: 09/29/23 11:54 Primary care physician: Xavier Mcnamara MD DS: Diagnosis Discharge Diagnosis (1) Hypomagnesemia: (2) Acute kidney failure, unspecified: Qualifiers: Acute renal failure type: unspecified Qualified Code(s): N17.9 - Acute kidney failure, unspecified Plan Recurrent diarrhea with heme pos, uncontrolled hypertension, leukocytosis secondary to C. difficile colitis Recent pneumonia Acute kidney injury with creatinine 33% above baseline. Hypertension NIDDM moderate protein connie malnutrition Hypomagnesemia hypokalemia DS: Summary Hospital Course Hospital Course: Pt admited with dehydration, acute kidney injury found to have c-dff colitis with acute lower gi blood loss anemia. Hydrated overnight, started on vanco and Flagyl, Feels better ths am- potassium sig low, will supplement and if ok this afternoon, discharge to home in improving condition, follow up in office as needed. Medications, see list Time Spent with Patient Time attestation: Total time spent providing and/or coordinating discharge services: Exam Constitutional Vital Signs, click to edit/add: Last Vital Signs Temp 97.5 F L 09/30/23 05:00 Pulse 66 09/30/23 08:09 Resp 18 09/30/23 05:00 BP 140/72 09/30/23 07:34 Pulse Ox 91 L 09/30/23 05:00 O2 Del Method Room Air 09/30/23 05:00 Documenting provider has reviewed patient's vital signs: yes Common normals: no apparent distress HENMT Common normals: oral mucous membranes not moist Respiratory Common normals: normal respiratory effort and no retractions Cardio Common normals: regular rate and regular rhythm GI Common normals: Normal to inspection, nondistended, normoactive bowel sounds present, soft to palpation and non-tender DS: Data Data Completed and Pending Labs on day of discharge: Labs from last 24 hours 09/30/23 09/29/23 09/29/23 07:28 20:58 19:20 WBC RBC Hgb Hct MCV MCH MCHC RDW Plt Count MPV Neut % (Auto) Lymph % (Auto) [place] % (Auto) Eos % (Auto) Baso % (Auto) Neut # (Auto) Lymph # (Auto) [place] # (Auto) Eos # (Auto) Baso # (Auto) Abs Immat Gran (auto) Imm/Tot Granulo (auto) Sodium Potassium Chloride Carbon Dioxide Anion Gap BUN Creatinine Est GFR ( Amer) Est GFR (Non-Af Amer) BUN/Creatinine Ratio Glucose Lactate Calcium Magnesium Total Bilirubin AST ALT Alkaline Phosphatase Total Protein Albumin Globulin Albumin/Globulin Ratio Stool Occult Blood Positive A Stl C. cayetanensis PCR Not detected Stool Rotavirus (PCR) Not detected Stool Adenovirus (PCR) Not detected Stool Astrovirus (PCR) Not detected Stool Campylobacter PCR Not detected Stool Cryptosporidium PCR Not detected St Sh/Enteroin Ecoli PCR Not detected Stl Enterotoxigenic E PCR Not detected Stool EPEC (PCR) Not detected Stl E. histolytica PCR Not detected Stool Giardia Lamblia PCR Not detected Stl P. shigelloides PCR Not detected Stool Salmonella PCR Not detected Stool Sapovirus (PCR) Not detected Stl Shiga-like Tx [address] Y.enterocolitica PCR Not detected Stl Vibrio cholerae PCR Not detected Stl Enteroaggr Ecoli PCR Not detected Stl Norovirus GI/GII PCR Not detected C. difficile Toxin A&B Detected A* Vibrio Culture Not detected POC Glucose 142 H 94 09/29/23 09/29/23 16:27 10:13 WBC 14.2 H RBC 3.80 L Hgb 11.8 L Hct 35.8 L MCV 94.2 MCH 31.1 MCHC 33.0 RDW 11.9 Plt Count 356 MPV 10.3 Neut % (Auto) 78.9 H Lymph % (Auto) 10.3 L [place] % (Auto) 8.3 Eos % (Auto) 1.5 Baso % (Auto) 0.4 Neut # (Auto) 11.2 H Lymph # (Auto) 1.5 [place] # (Auto) 1.2 H Eos # (Auto) 0.2 Baso # (Auto) 0.1 Abs Immat Gran (auto) 0.09 H Imm/Tot Granulo (auto) 0.6 H Sodium 138 Potassium 3.5 Chloride 96 L Carbon Dioxide 31.0 Anion Gap 14.5 BUN 26.0 H Creatinine 2.00 H Est GFR ( Amer) 29 L Est GFR (Non-Af Amer) 24 L BUN/Creatinine Ratio 13.0 Glucose 169 H Lactate 1.7 Calcium 9.6 Magnesium 1.5 L Total Bilirubin 0.5 AST 13 L ALT 12 L Alkaline Phosphatase 78 Total Protein 7.6 Albumin 2.8 L Globulin 4.8 Albumin/Globulin Ratio 0.6 Stool Occult Blood Stl C. cayetanensis PCR Stool Rotavirus (PCR) Stool Adenovirus (PCR) Stool Astrovirus (PCR) Stool Campylobacter PCR Stool Cryptosporidium PCR St Sh/Enteroin Ecoli PCR Stl Enterotoxigenic E PCR Stool EPEC (PCR) Stl E. histolytica PCR Stool Giardia Lamblia PCR Stl P. shigelloides PCR Stool Salmonella PCR Stool Sapovirus (PCR) Stl Shiga-like Tx [address] Y[address]enterocolitica PCR Stl Vibrio cholerae PCR Stl Enteroaggr Ecoli PCR Stl Norovirus GI/GII PCR C. difficile Toxin A&B Vibrio Culture POC Glucose 171 H Discharge Plan Discharge Disposition: Home, Self-Care Condition: Good Discharge Medications: New vancomycin [Vancocin] 125 mg capsule 125 mg PO QID 10 Days Qty: 40 0RF Continued carvedilol 25 mg tablet 25 mg PO Q12H metformin 500 mg tablet 500 mg PO BID omeprazole 40 mg capsule,delayed release(DR/EC) 40 mg PO DAILY ferrous sulfate 325 mg (65 mg iron) tablet 325 mg PO BID aspirin [Adult Aspirin Regimen] 81 mg tablet,delayed release (DR/EC) 81 mg PO DAILY propafenone 325 mg capsule,extended release 12 hr 325 mg PO Q12H doxazosin 4 mg tablet 4 mg PO DAILY amlodipine 5 mg tablet 5 mg PO BID ezetimibe 10 mg tablet 10 mg PO DAILY anastrozole 1 mg tablet 1 mg PO DAILY Discontinued furosemide 40 mg tablet 40 mg PO DAILY Forms: Portal Instructions Follow Up Appointments: @ 10:45am with Dr. Mcnamara [phone]
--- NOTE | 2023-09-30 08:13 | PM.PN ---
Exam Constitutional Vital Signs, click to edit/add: Last Vital Signs Temp 97.5 F L 09/30/23 05:00 Pulse 66 09/30/23 08:09 Resp 18 09/30/23 05:00 BP 140/72 09/30/23 07:34 Pulse Ox 91 L 09/30/23 05:00 O2 Del Method Room Air 09/30/23 05:00 Progress Note: Objective Labs Labs: Short CBC 09/29/23 Range/Units 10:13 WBC 14.2 H (4.0-11.0) 10^3/uL Hgb 11.8 L (12.0-16.0) g/dL Hct 35.8 L (36.0-48.0) % Plt Count 356 (150-450) 10^3/uL BMP 09/29/23 10:13 Sodium 138 Potassium 3.5 Chloride 96 L Carbon Dioxide 31.0 BUN 26.0 H Creatinine 2.00 H Glucose 169 H Calcium 9.6 Liver Function 09/29/23 Range/Units 10:13 Total Bilirubin 0.5 (0.2-1.0) mg/dL AST 13 L (15-37) U/L ALT 12 L (14-59) U/L Alkaline Phosphatase 78 (46-116) U/L Albumin 2.8 L (3.4-5.0) g/dL Progress Note: A&P Assessment and Plan (1) Hypomagnesemia: (2) Acute kidney failure, unspecified: Qualifiers: Acute renal failure type: unspecified Qualified Code(s): N17.9 - Acute kidney failure, unspecified
[2023-09-30] MEDS: LACTATED RINGER'S SOLUTION 1,000 ML 100 ML IV (08:36)
[2023-09-30] MEDS: VANCOMYCIN HCL 7,500 MG/150 ML BOTTLE 125 MG PO ×2 (08:36→11:19)
[2023-09-30] MEDS: AMLODIPINE BESYLATE 5 MG TABLET PO (08:37)
[2023-09-30] MEDS: DOXAZOSIN MESYLATE 2 MG TABLET 4 MG PO (08:38)
[2023-09-30] MEDS: ASPIRIN 81 MG TABLET.DR PO (08:38)
[2023-09-30] MEDS: FERROUS SULFATE 325 MG TABLET PO (08:39)
[2023-09-30] MEDS: EZETIMIBE 10 MG TABLET PO (08:39)
[2023-09-30 08:59] LABS: Basophils Absolute Auto 0.1 10^3/uL (0.0-0.1); Basophils Percent Auto 0.5 % (0.2-2.0); Eosinophils Absolute Auto 0.1 10^3/uL (0.0-0.7); Eosinophils Percent Auto 1.1 % (0.9-7.0); Hematocrit 34.1 % (36.0-48.0); Hemoglobin 11.4 g/dL (12.0-16.0); Immature Granulocytes Abs Auto 0.05 10^3/uL (0.00-0.03); Immature Granulocytes Pct Auto 0.4 % (0.0-0.5); Lymphocytes Absolute Auto 1.5 10^3/uL (1.2-3.8); Lymphocytes Percent Auto 13.2 % (20.5-60.0); Mean Corpuscular HGB Conc 33.4 g/dL (29.9-35.2); Mean Corpuscular Hemoglobin 30.6 pg (26.7-34.0); Mean Corpuscular Volume 91.4 fL (81.0-99.0); Mean Platelet Volume 10.5 fL (9.5-13.5); Monocytes Absolute Auto 0.9 10^3/uL (0.3-0.8); Monocytes Percent Auto 8.2 % (1.7-12.0); Neutrophils Absolute Auto 8.6 10^3/uL (1.4-6.5); Neutrophils Percent Auto 76.6 % (43.0-75.0); Platelet Count 308 10^3/uL (150-450); Red Blood Count 3.73 10^6/uL (4.20-5.40); Red Cell Distribution Width 11.9 % (11.0-15.0); White Blood Count 11.2 10^3/uL (4.0-11.0)
--- NOTE | 2023-09-30 09:09 | CM.NOTE ---
Rounds made with Dr. Mcnamara. Potential discharge after lunch if no further issues. Verbalizes understanding.
[2023-09-30 09:43] LABS: Alanine Aminotransferase 13 U/L (14-59); Albumin Globulin Ratio 0.6; Albumin Level 2.5 g/dL (3.4-5.0); Alkaline Phosphatase 69 U/L (46-116); Anion Gap 9.9; Aspartate Amino Transferase 12 U/L (15-37); BUN Creatinine Ratio 11.8; Bilirubin Total 0.4 mg/dL (0.2-1.0); Calcium 8.9 mg/dL (8.5-10.1); Carbon Dioxide 31.1 mmol/L (21.0-32.0); Chloride 104 mmol/L (98-107); Estimated GFR (African America 43 (>=60); Estimated GFR (Non-African Ame 35 (>=60); Globulin 4.3 g/dL; Glucose 169 mg/dL (74-106); Sodium 142 mmol/L (136-145); Total Protein 6.8 g/dL (6.4-8.2)
[2023-09-30] MEDS: POTASSIUM CHLORIDE 40 MEQ in 0.9 % SODIUM CHLORIDE 250 ML 67.5 MEQ IV (10:48)
[2023-09-30 11:19] LABS: Glucometer 152 mg/dL (74-106)
[2023-09-30] MEDS: INSULIN ASPART 300 UNIT/3 ML PEN SUBQ (11:20)
--- NOTE | 2023-09-30 11:52 | SWNOTE1 ---
MAYITO met with pt to discuss dc needs. Pt lives at home with her daughter. Pt does not use any DME at home and is not current with any Home Health. Pt denies any dc needs and will be leaving later today. MAYITO reviewed [facility] form with patient, she voiced understanding, no questions at this time. Pt signed form, copy of form was made and placed in chart, patient was given the original.
[2023-09-30 15:52] LABS: C. Difficile PCR NEGATIVE (NEGATIVE)
--- NOTE | 2023-10-01 15:00 | CM.DCFOLLOWU ---
Person spoke with: Vandana How are you feeling? Much better How is your pain? No pain Did you understand your discharge instructions? Yes Do you have any questions about your discharge instructions? No Were you given any prescriptions at discharge? Yes Were you able to get your prescriptions filled? Yes Do you understand how to take your medications as ordered? Yes Do you have any questions about your follow up appointment and do you plan to keep your follow up appointment? Yes Is there anything else that you would like to discuss? No Questions/Comments/Concerns/Other:
== END 2023-09-30 16:07 | disposition home or self-care (01) ==
LOC: ER 10:57 → MS 11:57
PROVIDERS: Admitting Provider Family Medicine; Emergency Provider Emergency Medicine; PCP Family Medicine; Visit Provider Family Medicine
DX: A04.72 Enterocolitis due to Clostridium difficile, not specified as recurrent (principal); E86.0 Dehydration; N17.9 Acute kidney failure, unspecified; I10 Essential (primary) hypertension; E11.9 Type 2 diabetes mellitus without complications; E87.6 Hypokalemia; E83.42 Hypomagnesemia; E44.0 Moderate protein-calorie malnutrition; Z68.24 Body mass index [BMI] 24.0-24.9, adult; D62 Acute posthemorrhagic anemia; Z79.899 Other long term (current) drug therapy; Z87.01 Personal history of pneumonia (recurrent); Z79.82 Long term (current) use of aspirin; Z79.84 Long term (current) use of oral hypoglycemic drugs
CPT/HCPCS: 36415; 80053; 81001; 82948; 83605; 83735; 85025; 87493; 87507; 93005; 94761; 96361; 96365; 96366; 96367; 99285; G0328; G0378; J3475; J3480

== ENCOUNTER 2023-10-16 10:32 | Outpatient (OUT) | payer MEDICARE, OTHER, SELFPAY ==
--- OUTSIDE RECORDS SUMMARY | 2023-10-16 10:47 | XMS_ITS | CCD ---
Author Name Unknown Address [address] [facility] [address] [place] [address] Organization [facility] Care Team Providers Care Lead Generator Name Role Phone MD Eduardo Sharpe Primary Care Provider [phone] MD Radha Echavarriaop Admit Provider MD Shaka Echavarria Attending Provider MD Brayden Hernandez Other Provider MD Brayden Hernandez Attending Provider [phone] Eduardo Sharpe MD Primary Care Provider [phone] Brayden Hernandez Unavailable EDUARDO SHARPE Primary Care Unavailable EDUARDO SHARPE Referring Unavailable GANESH HALE Admitting Unavailable GANESH HALE Attending Unavailable Unavailable Primary Care Provider Unavailcharles e PROVIDER, UNKNOWN Attending Unavailable PROVIDER, UNKNOWN Admitting Unavailable Eduardo Sharpe MD Primary Care Provider [phone] MIKALA HIGGINS Admitting Unavailable MIKALA HIGGINS Attending [...] Consulting Unavailable TIBURCIO HENDERSON Admitting Unavailable RAHEEL WRIHGT Primary Care Unavailable TIBURCIO HENDERSON Attending Unavailable [...] Unavailable Eduardo Sharpe MD Primary Care Provider [phone] AnithaBala bar Unavailable HOY, EDUARDO M Primary Care Unavailable HOY, EDURADO M Primary Care Unavailable HOY, EDUARDO M [...] Date of Onset Reaction(s) Facility (1 source) Hzqxdto-CEG-CkN Reductase Inhibitor Propensity to adverse reactions 0 [facility] (4 sources) HMG-CoA reductase inhibitor; Translations: [WSFIUKR-XSI-BYK REDUCTASE INHIBITORS] Drug Allergy 8 Unknown [facility] (1 source) black walnut pollen extract Drug Allergy 8 [facility] (10 sources) HMG-CoA reductase inhibitor Drug Allergy 8 Unknown [facility] (2 sources) Simvastatin Drug Allergy [facility] Medications Current Medications Medication Drug [...] Start: 04-12-2021 take 1 capsule by [facility] every twelve hours, then take [...] 10, 2020 1:30am November 09, 2021 7:27pm [id number] 200 actuat albuterol 0.09 mg/actuat metered dose [...] (Bisacodyl)) 10 mg Suppository Discontinued 10 MG WA Daily September 10, 2020 1:30am September 19, [...] 20 mg/ml oral solution (1 source) Uncompetitive X-pfyxgt-G-aspartate Receptor Antagonist, Sigma-1 Agonist Start: End: take [...] 2:05am September 10, 2020 2:21am lactobacillus acidophilus [id number] unt / pectin 10 mg oral capsule (1 source) Start: 09-10-2020 End: 09-19-2020 take 1 capsule by mouth four times daily Acidophilus-Pectin , Caroline (Acidophilus Probiotic) 100 million cell-10 mg Capsule [...] on above: Take 1 capsule by [facility] once daily. 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; Translations: [SHELTER USE ORAL HYPOGLYCEMIC DX] Onset: 09-03-2022 Episodic Other aftercare (1 source) Other [facility] (current) drug therapy; Translations: [OTH SHELTER CURRENT DRUG THERAPY] Onset: 09-03-2022 Episodic Other aftercare (1 source) shelter (current) use of aspirin; 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] Onset: 09-03-2022 Episodic Other aftercare (1 source) [employer] customer service (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) use of anticoagulants; Translations: [SHELTER CURRNT USE ANTICOAGULANTS] Onset: 08-25-2022 Episodic Other [...] Basophils (Bld) [#/Vol] 0.06 10*3/uL Normal <0.11 [facility] Comment on above: Order Comment: Speci men Type: BLOOD SPECIMENOrdering Facility: [facility] Address: [address] [place] [address] Performed By: #### 5 7021-8 ####[facility] LABCLIA [id number] [place] [address] Basophils/100 WBC (Bld) 0.6 % Normal [facility] Comment on above: Order Comment: Speci men Type: BLOOD SPECIMENOrdering Facility: [facility] Address: [address] [place] [address] Performed By: #### 5 7021-8 ####[facility] LABCLIA [id number] [place] [address] Differential cell count method Nom (Bld) Auto Normal [facility] Comment on above: Order Comment: Speci men Type: BLOOD SPECIMENOrdering Facility: [facility] Address: [address] [place] [address] Performed By: #### 5 7021-8 ####[facility] LABCLIA [id number] [place] [address] Eosinophils (Bld) [#/Vol] 0.16 10*3/uL Normal <0.46 [facility] Comment on above: Order Comment: Speci men Type: BLOOD SPECIMENOrdering Facility: [facility] Address: [address] [place] [address] Performed By: #### 5 7021-8 ####[facility] LABCLIA [id number] [place] [address] Eosinophils/100 WBC (Bld) 1.6 % Normal [facility] Comment on above: Order Comment: Speci men Type: BLOOD SPECIMENOrdering Facility: [facility] Address: [address] [place] [address] Performed By: #### 5 7021-8 ####[facility] LABCLIA [id number] [place] [address] Erythrocyte distribution width (RBC) [Ratio] 12.4 % Normal 11.5-15.0 [facility] Comment on above: Order Comment: Speci men Type: BLOOD SPECIMENOrdering Facility: [facility] Address: [address] [place] [address] Performed By: #### 5 7021-8 ####[facility] LABCLIA [id number] [place] [address] Hematocrit (Bld) [Volume fraction] 39.6 % Normal 36.0-46.0 [facility] Comment on above: Order Comment: Speci men Type: BLOOD SPECIMENOrdering Facility: [facility] Address: [address] [place] [address] Performed By: #### 5 7021-8 ####[facility] LABCLIA [id number] [place] [address] Hemoglobin (Bld) [Mass/Vol] 13.0 g/dL Normal 11.5-15.5 [facility] Comment on above: Order Comment: Speci men Type: BLOOD SPECIMENOrdering Facility: [facility] Address: [address] [place] [address] Performed By: #### 5 7021-8 ####[facility] LABIA [id number] [place] [address] Immature granulocytes (Bld) [#/Vol] 0.03 10*3/uL Normal <0.10 [facility] Comment on above: Order Comment: Speci men Type: BLOOD SPECIMENOrdering Facility: [facility] Address: [address] [place] [address] Performed By: #### 5 7021-8 ####[facility] LABIA [id number] [place] [address] Immature granulocytes/100 WBC (Bld) 0.3 % Normal [facility] Comment on above: Order Comment: Speci men Type: BLOOD SPECIMENOrdering Facility: [facility] Address: [address] [place] [address] Performed By: #### 5 7021-8 ####[facility] LABCLIA [id number] [place] [address] Lymphocytes (Bld) [#/Vol] 1.62 10*3/uL Normal 1.00-4.00 [facility] Comment on above: Order Comment: Speci men Type: BLOOD SPECIMENOrdering Facility: [facility] Address: [address] [place] [address] Performed By: #### 5 7021-8 ####[facility] LABCLIA [id number] [place] [address] Lymphocytes/100 WBC (Bld) 16.2 % Normal [facility] Comment on above: Order Comment: Speci men Type: BLOOD SPECIMENOrdering Facility: [facility] Address: [address] [place] [address] Performed By: #### 5 7021-8 ####[facility] LABCLIA [id number] [place] [address] MCH (RBC) [Entitic mass] 30.9 pg Normal 26.0-34.0 [facility] Comment on above: Order Comment: Speci men Type: BLOOD SPECIMENOrdering Facility: [facility] Address: [address] [place] [address] Performed By: #### 5 7021-8 ####[facility] LABCLIA [id number] [place] [address] MCHC (RBC) [Mass/Vol] 32.8 g/dL Normal 30.5-36.0 [facility] Comment on above: Order Comment: Speci men Type: BLOOD SPECIMENOrdering Facility: [facility] Address: [address] [place] [address] Performed By: #### 5 7021-8 ####[facility] LABCLIA [id number] [place] [address] MCV (RBC) [Entitic vol] 94.1 fL Normal 80.0-100.0 [facility] Comment on above: Order Comment: Speci men Type: BLOOD SPECIMENOrdering Facility: [facility] Address: [address] [place] [address] Performed By: #### 5 7021-8 ####[facility] LABCLIA [id number] [place] [address] Monocytes (Bld) [#/Vol] 1.04 10*3/uL High <0.87 [facility] Comment on above: Order Comment: Speci men Type: BLOOD SPECIMENOrdering Facility: [facility] Address: [address] [place] [address] Performed By: #### 5 7021-8 ####[facility] LABCLIA [id number] [place] [address] Monocytes/100 WBC (Bld) 10.4 % Normal [facility] Comment on above: Order Comment: Speci men Type: BLOOD SPECIMENOrdering Facility: [facility] Address: [address] [place] [address] Performed By: #### 5 7021-8 ####[facility] LABCLIA [id number] [place] [address] Neutrophils (Bld) [#/Vol] 7.12 10*3/uL Normal 1.45-7.50 [facility] Comment on above: Order Comment: Speci men Type: BLOOD SPECIMENOrdering Facility: [facility] Address: [address] [place] [address] Performed By: #### 5 7021-8 ####[facility] LABCLIA [id number] [place] [address] Neutrophils/100 WBC (Bld) 70.9 % Normal [facility] Comment on above: Order Comment: Speci men Type: BLOOD SPECIMENOrdering Facility: [facility] Address: [address] [place] [address] Performed By: #### 5 7021-8 ####[facility] LABCLIA [id number] [place] [address] Nucleated RBC (Bld) [#/Vol] 10*3/uL Normal <0.01 [facility] Comment on above: Order Comment: Speci men Type: BLOOD SPECIMENOrdering Facility: [facility] Address: [address] [place] [address] Performed By: #### 5 7021-8 ####[facility] LABCLIA [id number] [place] [address] Nucleated RBC/100 WBC (Bld) [Ratio] 0.0 /100 WBC Normal [facility] Comment on above: Order Comment: Speci men Type: BLOOD SPECIMENOrdering Facility: [facility] Address: [address] [place] [address] Performed By: #### 5 7021-8 ####[facility] LABCLIA [id number] [place] [address] Platelet mean volume (Bld) [Entitic vol] 10.7 fL Normal 9.0-12.7 [facility] Comment on above: Order Comment: Speci men Type: BLOOD SPECIMENOrdering Facility: [facility] Address: [address] [place] [address] Performed By: #### 5 7021-8 ####[facility] LABCLIA [id number] [place] [address] Platelets (Bld) [#/Vol] 252 10*3/uL Normal 150-400 [facility] Comment on above: Order Comment: Speci men Type: BLOOD SPECIMENOrdering Facility: [facility] Address: [address] [place] [address] Performed By: #### 5 7021-8 ####[facility] LABCLIA [id number] [place] [address] RBC (Bld) [#/Vol] 4.21 10*6/uL Normal 3.90-5.20 [facility] Comment on above: Order Comment: Speci men Type: BLOOD SPECIMENOrdering Facility: [facility] Address: [address] [place] [address] Performed By: #### 5 7021-8 ####[facility] LABCLIA [id number] [place] [address] WBC (Bld) [#/Vol] 10.03 10*3/uL Normal 3.70-11.00 [facility] Comment on above: Order Comment: Speci men Type: BLOOD SPECIMENOrdering Facility: [facility] Address: [place] [address] Performed By: #### 5 7021-8 ####[facility] LABCLIA [id number] [place] [address] CNOVSPon 08-19-2023 CNOVSP Visit (SP) Office ([facility]) -- ANDREW BARROS ([id number]) 1945 F Date Time Provider Department 08/19/23 1:00 PM SANDEEP LENZ During your visit today, we recorded the following information about you: Temperature Pulse Respiration Blood pressure 97.7 degrees 67/minute 16/minute 148/65 Weight Height 61.8 kg 1.626 m Sandeep Lenz MD 08/20/2023 7:07 AM Signed [facility] NAME: Andrew Barros CLINIC NO.: [id number] DATE OF SERVICE: August 19, 2023 (Eduardo) [...] outer quadrant, invasive ductal carcinoma, ER postive, WA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 Mammograms at [facility] on 01/04/2021 Bi-Rads 2 benign. REVIEW [...] comfortably. N (more content not included)... Normal [facility] Rita 08-19-2023 CNPN Telephone ([facility]) -- ANDREW BARROS ([id number]) 1945 F Date Time Provider Department 08/19/23 CLEMENTE SRIVASTAVA HEMASA During your visit today, we recorded the following information about you: Clemente Srivastava RN 08/19/2023 2:47 PM Signed ----- Message from Sandeep Lenz MD sent at 08/19/2023 2:33 PM EST ----- Calcium janki normal. Kidney function is stable Clemente Srivastava RN 08/19/2023 2:47 PM Signed Pt aware of Kasenna's message. She denies any additional questions, needs or concerns at this time. Clemente Srivastava RN Allergies As of Date: 08/19/2023 Noted Allergy Reaction HGKCRPI-HEL-XSJ REDUCTASE INHIBIT*01/21/2018 16 - Unknown Comments: Other [...] Status:Closed by CLEMENTE SRIVASTAVA on 08/19/23 Normal [facility] Calcium.ionized [Moles/Vol]o n 08-19-2023 Calcium.ionized (Bld) [Mass/Vol] 1.20 mmol/L Normal 1.08-1.30 [facility] Comment on above: Order Comment: Speci men Type: BLOOD SPECIMENOrdering Facility: [facility] Address: [address] [place] [address] Performed By: #### 1 995-0 ####[facility] LABCLIA [id number] [place] [address] [place] Calcium.ionized adjusted to pH 7.4 (Bld) [Moles/Vol] 1.19 mmol/L Normal 1.08-1.30 [facility] Comment on above: Order Comment: Sosai men Type: BLOOD SPECIMENOrdering Facility: [facility] Address: [address] [place] [address] Performed By: #### 1 995-0 ####[facility] LABCLIA [id number] [facility]iel [facility] [id number] [address] [place] Comprehensive metabolic 2000 panelon 08-19-2023 Albumin [Mass/Vol] 4.4 g/dL Normal 3.9-4.9 [facility] Comment on above: Order Comment: Speci men Type: BLOOD SPECIMENOrdering Facility: [facility] Address: [address] [place] [address] Performed By: #### 2 4323-8 ####[facility] LABCLIA [id number] [place] [address] ALP [Catalytic activity/Vol] 88 U/L Normal 34-123 [facility] Comment on above: Order Comment: Speci men Type: BLOOD SPECIMENOrdering Facility: [facility] Address: [address] [place] [address] Performed By: #### 2 4323-8 ####[facility] LABCLIA [id number] [place] [address] ALT [Catalytic activity/Vol] 8 U/L Normal 7-38 [facility] Comment on above: Order Comment: Speci men Type: BLOOD SPECIMENOrdering Facility: [facility] Address: [address] [place] [address] Performed By: #### 2 4323-8 ####[facility] LABCLIA [id number] [place] [address] Anion gap [Moles/Vol] 11 mmol/L Normal 9-18 [facility] Comment on above: Order Comment: Speci men Type: BLOOD SPECIMENOrdering Facility: [facility] Address: [address] [place] [address] Performed By: #### 2 4323-8 ####[facility] LABCLIA [id number] [place] [address] AST [Catalytic activity/Vol] 13 U/L Normal 13-35 [facility] Comment on above: Order Comment: Speci men Type: BLOOD SPECIMENOrdering Facility: [facility] Address: [address] [place] [address] Performed By: #### 2 4323-8 ####[facility] LABCLIA [id number] [place] [address] Bilirubin [Mass/Vol] 0.3 mg/dL Normal 0.2-1.3 [facility] Comment on above: Order Comment: Speci men Type: BLOOD SPECIMENOrdering Facility: [facility] Address: [address] [place] [address] Performed By: #### 2 4323-8 ####[facility] LABCLIA [id number] [place] [address] Calcium [Mass/Vol] 9.6 mg/dL Normal 8.5-10.2 [facility] Comment on above: Order Comment: Speci men Type: BLOOD SPECIMENOrdering Facility: [facility] Address: [address] [place] [address] Performed By: #### 2 4323-8 ####[facility] LABCLIA [id number] [place] [address] Chloride [Moles/Vol] 98 mmol/L Normal 97-105 [facility] Comment on above: Order Comment: Speci men Type: BLOOD SPECIMENOrdering Facility: [facility] Address: [address] [place] [address] Performed By: #### 2 4323-8 ####[facility] LABCLIA [id number] [place] [address] CO2 [Moles/Vol] 30 mmol/L Normal 22-30 [facility] Comment on above: Order Comment: Speci men Type: BLOOD SPECIMENOrdering Facility: [facility] Address: [address] [place] [address] Performed By: #### 2 4323-8 ####[facility] LABCLIA [id number] [place] [address] Creatinine [Mass/Vol] 1.27 mg/dL High 0.58-0.96 [facility] Comment on above: Order Comment: Anastacio bonilla Type: BLOOD SPECIMENOrdering Facility: [facility] Address: [place] [address] Performed By: #### 2 4323-8 ####[facility] LABCLIA [id number] [place] [address] Creatinine and Glomerular filtration rate.predicted panel (S/P/Bld) 43 mL/min/1.73m??? Low >=60 [facility] Comment on above: Order Comment: Anastacio bonilla Type: BLOOD SPECIMENOrdering Facility: [facility] Address: [address] [place] [address] Result Comment: Sugar mated Glomerular Filtration Rate [...] actual GFR. Performed By: #### 2 4323-8 ####[facility] LABCLIA [id number] [place] [address] Glucose [Mass/Vol] 94 mg/dL Normal 74-99 [facility] Comment on above: Order Comment: Anastacio bonilla Type: BLOOD SPECIMENOrdering Facility: [facility] Address: [place] [address] Result Comment: The [place] Diabetes Association (ADA) provides guidance for cutoff [...] Standards of Medical Care in Diabetes 2016, [place] Diabetes Association. Diabetes Care. 2016.39(Suppl 1). Performed By: #### 2 4323-8 ####[facility] LABCLIA [id number] [place] [address] Potassium [Moles/Vol] 3.7 mmol/L Normal 3.7-5.1 [facility] Comment on above: Order Comment: Speci men Type: BLOOD SPECIMENOrdering Facility: [facility] Address: [address] [place] [address] Performed By: #### 2 4323-8 ####[facility] LABCLIA [id number] [place] [address] Protein [Mass/Vol] 7.3 g/dL Normal 6.3-8.0 [facility] Comment on above: Order Comment: Speci men Type: BLOOD SPECIMENOrdering Facility: [facility] Address: [address] [place] [address] Performed By: #### 2 4323-8 ####[facility] LABCLIA [id number] [place] [address] Sodium [Moles/Vol] 139 mmol/L Normal 136-144 [facility] Comment on above: Order Comment: Speci men Type: BLOOD SPECIMENOrdering Facility: [facility] Address: [address] [place] [address] Performed By: #### 2 4323-8 ####[facility] LABCLIA [id number] [place] [address] Urea nitrogen [Mass/Vol] 28 mg/dL High 7-21 [facility] Comment on above: Order Comment: Speci men Type: BLOOD SPECIMENOrdering Facility: [facility] Address: [address] [place] [address] Performed By: #### 2 4323-8 ####[facility] LABCLIA [id number] [place] [address] CBC W Auto Differential pane l (Bld)on 2023 Basophils (Bld) [#/Vol] 0.06 10*3/uL Normal <0.11 [facility] Comment on above: Order Comment: Speci men Type: BLOOD SPECIMENOrdering Facility: [facility] Address: [address] [place] [address] Performed By: #### 5 7021-8 ####[facility] LABCLIA [id number] [place] [address] Basophils/100 WBC (Bld) 0.6 % Normal [facility] Comment on above: Order Comment: Speci men Type: BLOOD SPECIMENOrdering Facility: [facility] Address: [address] [place] [address] Performed By: #### 5 7021-8 ####[facility] LABCLIA [id number] [place] [address] Differential cell count method Nom (Bld) Auto Normal [facility] Comment on above: Order Comment: Speci men Type: BLOOD SPECIMENOrdering Facility: [facility] Address: [address] [place] [address] Performed By: #### 5 7021-8 ####[facility] LABCLIA [id number] [place] [address] Eosinophils (Bld) [#/Vol] 0.14 10*3/uL Normal <0.46 [facility] Comment on above: Order Comment: Speci men Type: BLOOD SPECIMENOrdering Facility: [facility] Address: [address] [place] [address] Performed By: #### 5 7021-8 ####[facility] LABCLIA [id number] [place] [address] Eosinophils/100 WBC (Bld) 1.5 % Normal [facility] Comment on above: Order Comment: Speci men Type: BLOOD SPECIMENOrdering Facility: [facility] Address: [address] [place] [address] Performed By: #### 5 7021-8 ####[facility] LABCLIA [id number] [place] [address] Erythrocyte distribution width (RBC) [Ratio] 12.5 % Normal 11.5-15.0 [facility] Comment on above: Order Comment: Speci men Type: BLOOD SPECIMENOrdering Facility: [facility] Address: [address] [place] [address] Performed By: #### 5 7021-8 ####[facility] LABIA [id number] [place] [address] Hematocrit (Bld) [Volume fraction] 40.6 % Normal 36.0-46.0 [facility] Comment on above: Order Comment: Speci men Type: BLOOD SPECIMENOrdering Facility: [facility] Address: [address] [place] [address] Performed By: #### 5 7021-8 ####[facility] LABIA [id number] [place] [address] Hemoglobin (Bld) [Mass/Vol] 13.1 g/dL Normal 11.5-15.5 [facility] Comment on above: Order Comment: Speci men Type: BLOOD SPECIMENOrdering Facility: [facility] Address: [address] [place] [address] Performed By: #### 5 7021-8 ####[facility] LABIA [id number] [place] [address] Immature granulocytes (Bld) [#/Vol] 0.03 10*3/uL Normal <0.10 [facility] Comment on above: Order Comment: Speci men Type: BLOOD SPECIMENOrdering Facility: [facility] Address: [address] [place] [address] Performed By: #### 5 7021-8 ####[facility] LABIA [id number] [place] [address] Immature granulocytes/100 WBC (Bld) 0.3 % Normal [facility] Comment on above: Order Comment: Speci men Type: BLOOD SPECIMENOrdering Facility: [facility] Address: [address] [place] [address] Performed By: #### 5 7021-8 ####[facility] LABCLIA [id number] [place] [address] Lymphocytes (Bld) [#/Vol] 1.44 10*3/uL Normal 1.00-4.00 [facility] Comment on above: Order Comment: Speci men Type: BLOOD SPECIMENOrdering Facility: [facility] Address: [address] [place] [address] Performed By: #### 5 7021-8 ####[facility] LABCLIA [id number] [place] [address] Lymphocytes/100 WBC (Bld) 15.2 % Normal [facility] Comment on above: Order Comment: Speci men Type: BLOOD SPECIMENOrdering Facility: [facility] Address: [address] [place] [address] Performed By: #### 5 7021-8 ####[facility] LABCLIA [id number] [place] [address] MCH (RBC) [Entitic mass] 31.2 pg Normal 26.0-34.0 [facility] Comment on above: Order Comment: Speci men Type: BLOOD SPECIMENOrdering Facility: [facility] Address: [address] [place] [address] Performed By: #### 5 7021-8 ####[facility] LABCLIA [id number] [place] [address] MCHC (RBC) [Mass/Vol] 32.3 g/dL Normal 30.5-36.0 [facility] Comment on above: Order Comment: Speci men Type: BLOOD SPECIMENOrdering Facility: [facility] Address: [address] [place] [address] Performed By: #### 5 7021-8 ####[facility] [facility] [id number] [place] [address] MCV (RBC) [Entitic vol] 96.7 fL Normal 80.0-100.0 [facility] Comment on above: Order Comment: Speci men Type: BLOOD SPECIMENOrdering Facility: [facility] Address: [address] [place] [address] Performed By: #### 5 7021-8 ####[facility] LABCLIA [id number] [place] [address] Monocytes (Bld) [#/Vol] 0.82 10*3/uL Normal <0.87 [facility] Comment on above: Order Comment: Speci men Type: BLOOD SPECIMENOrdering Facility: [facility] Address: [address] [place] [address] Performed By: #### 5 7021-8 ####[facility] LABCLIA [id number] [place] [address] Monocytes/100 WBC (Bld) 8.7 % Normal [facility] Comment on above: Order Comment: Speci men Type: BLOOD SPECIMENOrdering Facility: [facility] Address: [address] [place] [address] Performed By: #### 5 7021-8 ####[facility] LABCLIA [id number] [place] [address] Neutrophils (Bld) [#/Vol] 6.97 10*3/uL Normal 1.45-7.50 [facility] Comment on above: Order Comment: Speci men Type: BLOOD SPECIMENOrdering Facility: [facility] Address: [address] [place] [address] Performed By: #### 5 7021-8 ####[facility] LABCLIA [id number] [place] [address] Neutrophils/100 WBC (Bld) 73.7 % Normal [facility] Comment on above: Order Comment: Speci men Type: BLOOD SPECIMENOrdering Facility: [facility] Address: [address] [place] [address] Performed By: #### 5 7021-8 ####[facility] LABCLIA [id number] [place] [address] Nucleated RBC (Bld) [#/Vol] 10*3/uL Normal <0.01 [facility] Comment on above: Order Comment: Speci men Type: BLOOD SPECIMENOrdering Facility: [facility] Address: [address] [place] [address] Performed By: #### 5 7021-8 ####[facility] LABCLIA [id number] [place] [address] Nucleated RBC/100 WBC (Bld) [Ratio] 0.0 /100 WBC Normal [facility] Comment on above: Order Comment: Speci men Type: BLOOD SPECIMENOrdering Facility: [facility] Address: [address] [place] [address] Performed By: #### 5 7021-8 ####[facility] LABCLIA [id number] [place] [address] Platelet mean volume (Bld) [Entitic vol] 11.0 fL Normal 9.0-12.7 [facility] Comment on above: Order Comment: Speci men Type: BLOOD SPECIMENOrdering Facility: [facility] Address: [address] [place] [address] Performed By: #### 5 7021-8 ####[facility] LABCLIA [id number] [place] [address] Platelets (Bld) [#/Vol] 238 10*3/uL Normal 150-400 [facility] Comment on above: Order Comment: Speci men Type: BLOOD SPECIMENOrdering Facility: [facility] Address: [address] [place] [address] Performed By: #### 5 7021-8 ####[facility] LABCLIA [id number] [place] [address] RBC (Bld) [#/Vol] 4.20 10*6/uL Normal 3.90-5.20 [facility] Comment on above: Order Comment: Speci men Type: BLOOD SPECIMENOrdering Facility: [facility] Address: [place] [address] Performed By: #### 5 7021-8 ####[facility] LABCLIA [id number] [place] [address] WBC (Bld) [#/Vol] 9.46 10*3/uL Normal 3.70-11.00 [facility] Comment on above: Order Comment: Speci men Type: BLOOD SPECIMENOrdering Facility: [facility] Address: [address] [place] [address] Performed By: #### 5 7021-8 ####[facility] LABIA [id number] [place] [address] Calcium.ionized [Moles/Vol]o n 07-02-2023 Calcium.ionized (Bld) [Mass/Vol] 1.23 mmol/L Normal 1.08-1.30 [facility] Comment on above: Order Comment: Speci men Type: BLOOD SPECIMEN [facility] Address: [address] [place] [address] Performed By: #### 1 995-0 #### [facility] [place] [id number] [address] [place] [address] [place] Calcium.ionized adjusted to pH 7.4 (Bld) [Moles/Vol] 1.20 mmol/L Normal 1.08-1.30 [facility] Comment on above: Order Comment: Speci men Type: BLOOD SPECIMEN [facility] Address: [address] [place] [address] Performed By: #### 1 995-0 #### [facility] [place] [id number] [address] [place] [address] [place] Comprehensive metabolic 2000 panelon 07-02-2023 Albumin [Mass/Vol] 4.5 g/dL Normal 3.9-4.9 [facility] Comment on above: Order Comment: Speci men Type: BLOOD SPECIMENOrdering Facility: [facility] Address: [address] [place] [address] Performed By: #### 2 4323-8 ####[facility] LABCLIA [id number] [place] [address] ALP [Catalytic activity/Vol] 89 U/L Normal 34-123 [facility] Comment on above: Order Comment: Speci men Type: BLOOD SPECIMENOrdering Facility: [facility] Address: [address] [place] [address] Performed By: #### 2 4323-8 ####[facility] LABCLIA [id number] [place] [address] ALT [Catalytic activity/Vol] 10 U/L Normal 7-38 [facility] Comment on above: Order Comment: Speci men Type: BLOOD SPECIMENOrdering Facility: [facility] Address: [address] [place] [address] Performed By: #### 2 4323-8 ####[facility] LABCLIA [id number] [place] [address] Anion gap [Moles/Vol] 15 mmol/L Normal 9-18 [facility] Comment on above: Order Comment: Speci men Type: BLOOD SPECIMENOrdering Facility: [facility] Address: [address] [place] [address] Performed By: #### 2 4323-8 ####[facility] LABCLIA [id number] [place] [address] AST [Catalytic activity/Vol] 14 U/L Normal 13-35 [facility] Comment on above: Order Comment: Speci men Type: BLOOD SPECIMENOrdering Facility: [facility] Address: [address] [place] [address] Performed By: #### 2 4323-8 ####[facility] LABCLIA [id number] [place] [address] Bilirubin [Mass/Vol] 0.4 mg/dL Normal 0.2-1.3 [facility] Comment on above: Order Comment: Speci men Type: BLOOD SPECIMENOrdering Facility: [facility] Address: [address] [place] [address] Performed By: #### 2 4323-8 ####[facility] LABCLIA [id number] [place] [address] Calcium [Mass/Vol] 9.9 mg/dL Normal 8.5-10.2 [facility] Comment on above: Order Comment: Speci men Type: BLOOD SPECIMENOrdering Facility: [facility] Address: [address] [place] [address] Performed By: #### 2 4323-8 ####[facility] LABCLIA [id number] [place] [address] Chloride [Moles/Vol] 99 mmol/L Normal 97-105 [facility] Comment on above: Order Comment: Speci men Type: BLOOD SPECIMENOrdering Facility: [facility] Address: [address] [place] [address] Performed By: #### 2 4323-8 ####[facility] LABCLIA [id number] [place] [address] CO2 [Moles/Vol] 28 mmol/L Normal 22-30 [facility] Comment on above: Order Comment: Speci men Type: BLOOD SPECIMENOrdering Facility: [facility] Address: [address] [place] [address] Performed By: #### 2 4323-8 ####[facility] LABCLIA [id number] [place] [address] Creatinine [Mass/Vol] 1.31 mg/dL High 0.58-0.96 [facility] Comment on above: Order Comment: Speci men Type: BLOOD SPECIMENOrdering Facility: [facility] Address: [address] [place] [address] Performed By: #### 2 4323-8 ####[facility] LABCLIA [id number] [place] [address] Creatinine and Glomerular filtration rate.predicted panel (S/P/Bld) 42 mL/min/1.73m??? Low >=60 [facility] Comment on above: Order Comment: Anastacio bonilla Type: BLOOD SPECIMENOrdering Facility: [facility] Address: [address] [place] [address] Result Comment: Sugar mated Glomerular Filtration Rate [...] actual GFR. Performed By: #### 2 4323-8 ####[facility] LABCLIA [id number] [place] [address] Glucose [Mass/Vol] 183 mg/dL High 74-99 [facility] Comment on above: Order Comment: Anastacio bonilla Type: BLOOD SPECIMENOrdering Facility: [facility] Address: [address] [place] [address] Result Comment: The [place] Diabetes Association (ADA) provides guidance for cutoff [...] Standards of Medical Care in Diabetes 2016, [place] Diabetes Association. Diabetes Care. 2016.39(Suppl 1). Performed By: #### 2 4323-8 ####[facility] LABCLIA [id number] [place] [address] Potassium [Moles/Vol] 3.9 mmol/L Normal 3.7-5.1 [facility] Comment on above: Order Comment: Anastacio bonilla Type: BLOOD SPECIMENOrdering Facility: [facility] Address: [address] [place] [address] Performed By: #### 2 4323-8 ####[facility] LABCLIA [id number] [place] [address] Protein [Mass/Vol] 7.2 g/dL Normal 6.3-8.0 [facility] Comment on above: Order Comment: Speci men Type: BLOOD SPECIMENOrdering Facility: [facility] Address: [address] [place] [address] Performed By: #### 2 4323-8 ####[facility] LABCLIA [id number] [place] [address] Sodium [Moles/Vol] 142 mmol/L Normal 136-144 [facility] Comment on above: Order Comment: Speci men Type: BLOOD SPECIMENOrdering Facility: [facility] Address: [address] [place] [address] Performed By: #### 2 4323-8 ####[facility] LABCLIA [id number] [place] [address] Urea nitrogen [Mass/Vol] 29 mg/dL High 7-21 [facility] Comment on above: Order Comment: Speci men Type: BLOOD SPECIMENOrdering Facility: [facility] Address: [address] [place] [address] Performed By: #### 2 4323-8 ####[facility] LABCLIA [id number] [place] [address] CBC W Auto Differential pane l (Bld)on 05-21-2023 Basophils (Bld) [#/Vol] 0.07 10*3/uL <0.11 k/uL [facility] Basophils/100 WBC (Bld) 0.6 % [facility] Differential cell count method Nom (Bld) Auto [facility] Eosinophils (Bld) [#/Vol] 0.17 10*3/uL <0.46 k/uL [facility] Eosinophils/100 WBC (Bld) 1.6 % [facility] Erythrocyte distribution width (RBC) [Ratio] 12.8 % 11.5 - 15.0 % [facility] Hematocrit (Bld) [Volume fraction] 38.7 % 36.0 - 46.0 % [facility] Hemoglobin (Bld) [Mass/Vol] 13.0 g/dL 11.5 - 15.5 g/dL [facility] Immature granulocytes (Bld) [#/Vol] 0.04 10*3/uL <0.10 k/uL [facility] Immature granulocytes/100 WBC (Bld) 0.4 % [facility] Lymphocytes (Bld) [#/Vol] 1.74 10*3/uL 1.00 - 4.00 k/uL [facility] Lymphocytes/100 WBC (Bld) 16.0 % [facility] MCH (RBC) [Entitic mass] 31.7 pg 26.0 - 34.0 pg [facility] MCHC (RBC) [Mass/Vol] 33.6 g/dL 30.5 - 36.0 g/dL [facility] MCV (RBC) [Entitic vol] 94.4 fL 80.0 - 100.0 fL [facility] Monocytes (Bld) [#/Vol] 0.94 10*3/uL High <0.87 k/uL [facility] Monocytes/100 WBC (Bld) 8.6 % [facility] Neutrophils (Bld) [#/Vol] 7.94 10*3/uL High 1.45 - 7.50 k/uL [facility] Neutrophils/100 WBC (Bld) 72.8 % [facility] Nucleated RBC (Bld) [#/Vol] <0.01 k/uL [facility] Nucleated RBC/100 WBC (Bld) [Ratio] 0.0 /100 WBC [facility] Platelet mean volume (Bld) [Entitic vol] 12.1 fL 9.0 - 12.7 fL [facility] Platelets (Bld) [#/Vol] 293 10*3/uL 150 - 400 k/uL [facility] RBC (Bld) [#/Vol] 4.10 10*6/uL 3.90 - 5.2 0 m/uL [facility] WBC (Bld) [#/Vol] 10.90 10*3/uL 3.70 - 11.00 k/uL [facility] Rita 05-21-2023 CNPN Telephone ([facility]) -- ANDREW BARROS ([id number]) 1945 F Date Time Provider Department 05/21/23 [...] As of Date: 05/21/2023 Noted Allergy Reaction [id number] REDUCTASE INHIBIT*01/21/2018 16 - Unknown Comments: Other [...] Status:Closed by CLEMENTE SRIVASTAVA on 05/21/23 Normal [facility] Comprehensive metabolic 2000 panelon 05-21-2023 Albumin [Mass/Vol] 4.6 g/dL 3.9 - 4.9 g/dL [facility] ALP [Catalytic activity/Vol] 96 U/L 34 - 123 U/L [facility] ALT [Catalytic activity/Vol] 13 U/L 7 - 38 U/L [facility] Anion gap [Moles/Vol] 13 mmol/L 9 - 18 mmol/L [facility] AST [Catalytic activity/Vol] 18 U/L 13 - 35 U/L [facility] Bilirubin [Mass/Vol] 0.3 mg/dL 0.2 - 1 .3 mg/dL [facility] Calcium [Mass/Vol] 10.0 mg/dL 8.5 - 10. 2 mg/dL [facility] Chloride [Moles/Vol] 101 mmol/L 97 - 10 5 mmol/L [facility] CO2 [Moles/Vol] 26 mmol/L 22 - 30 mmol/L [facility] Creatinine [Mass/Vol] 1.32 mg/dL High 0.58 - 0.96 mg/dL [facility] Estimated Glomerular Filtration Rate 41 mL/min/1.73m Low >=60 mL/min/1.73 m [facility] Glucose [Mass/Vol] 119 mg/dL High 74 - 99 mg/dL [facility] Potassium [Moles/Vol] 4.1 mmol/L 3.7 - 5.1 mmol/L [facility] Protein [Mass/Vol] 7.6 g/dL 6.3 - 8.0 g/dL [facility] Sodium [Moles/Vol] 140 mmol/L 136 - 144 mmol/L [facility] Urea nitrogen [Mass/Vol] 32 mg/dL High 7 - 21 mg/dL [facility] CBC W Auto Differential pane l (Bld)on 05-20-2023 Basophils (Bld) [#/Vol] 0.07 10*3/uL Normal <0.11 [facility] Comment on above: Order Comment: Speci men Type: BLOOD SPECIMENOrdering Facility: [facility] Address: [address] [place] [address] Performed By: #### 5 7021-8 ####[facility] LABCLIA [id number] [place] [address] Basophils/100 WBC (Bld) 0.6 % Normal [facility] Comment on above: Order Comment: Speci men Type: BLOOD SPECIMENOrdering Facility: [facility] Address: [address] [place] [address] Performed By: #### 5 7021-8 ####[facility] LABCLIA [id number] [place] [address] Differential cell count method Nom (Bld) Auto Normal [facility] Comment on above: Order Comment: Speci men Type: BLOOD SPECIMENOrdering Facility: [facility] Address: [address] [place] [address] Performed By: #### 5 7021-8 ####[facility] LABCLIA [id number] [place] [address] Eosinophils (Bld) [#/Vol] 0.17 10*3/uL Normal <0.46 [facility] Comment on above: Order Comment: Speci men Type: BLOOD SPECIMENOrdering Facility: [facility] Address: [address] [place] [address] Performed By: #### 5 7021-8 ####[facility] LABCLIA [id number] [place] [address] Eosinophils/100 WBC (Bld) 1.6 % Normal [facility] Comment on above: Order Comment: Speci men Type: BLOOD SPECIMENOrdering Facility: [facility] Address: [address] [place] [place] [address] Performed By: #### 5 7021-8 ####[facility] LABCLIA [id number] [place] [address] Erythrocyte distribution width (RBC) [Ratio] 12.8 % Normal 11.5-15.0 [facility] Comment on above: Order Comment: Speci men Type: BLOOD SPECIMENOrdering Facility: [facility] Address: [address] [place] [place] [address] Performed By: #### 5 7021-8 ####[facility] LABCLIA [id number] [place] [address] Hematocrit (Bld) [Volume fraction] 38.7 % Normal 36.0-46.0 [facility] Comment on above: Order Comment: Speci men Type: BLOOD SPECIMENOrdering Facility: [facility] Address: [address] [place] [place] [address] Performed By: #### 5 7021-8 ####[facility] LABCLIA [id number] [place] [address] Hemoglobin (Bld) [Mass/Vol] 13.0 g/dL Normal 11.5-15.5 [facility] Comment on above: Order Comment: Speci men Type: BLOOD SPECIMENOrdering Facility: [facility] Address: [address] [place] [address] Performed By: #### 5 7021-8 ####[facility] LABCLIA [id number] [place] [address] Immature granulocytes (Bld) [#/Vol] 0.04 10*3/uL Normal <0.10 [facility] Comment on above: Order Comment: Speci men Type: BLOOD SPECIMENOrdering Facility: [facility] Address: [address] [place] [address] Performed By: #### 5 7021-8 ####[facility] LABCLIA [id number] [place] [address] Immature granulocytes/100 WBC (Bld) 0.4 % Normal [facility] Comment on above: Order Comment: Speci men Type: BLOOD SPECIMENOrdering Facility: [facility] Address: [address] [place] [address] Performed By: #### 5 7021-8 ####[facility] LABCLIA [id number] [place] [address] Lymphocytes (Bld) [#/Vol] 1.74 10*3/uL Normal 1.00-4.00 [facility] Comment on above: Order Comment: Speci men Type: BLOOD SPECIMENOrdering Facility: [facility] Address: [address] [place] [address] Performed By: #### 5 7021-8 ####[facility] LABCLIA [id number] [place] [address] Lymphocytes/100 WBC (Bld) 16.0 % Normal [facility] Comment on above: Order Comment: Speci men Type: BLOOD SPECIMENOrdering Facility: [facility] Address: [address] [place] [address] Performed By: #### 5 7021-8 ####[facility] LABCLIA [id number] [place] [address] MCH (RBC) [Entitic mass] 31.7 pg Normal 26.0-34.0 [facility] Comment on above: Order Comment: Speci men Type: BLOOD SPECIMENOrdering Facility: [facility] Address: [address] [place] [address] Performed By: #### 5 7021-8 ####[facility] LABCLIA [id number] [place] [address] MCHC (RBC) [Mass/Vol] 33.6 g/dL Normal 30.5-36.0 [facility] Comment on above: Order Comment: Speci men Type: BLOOD SPECIMENOrdering Facility: [facility] Address: [address] [place] [address] Performed By: #### 5 7021-8 ####[facility] LABCLIA [id number] [place] [address] MCV (RBC) [Entitic vol] 94.4 fL Normal 80.0-100.0 [facility] Comment on above: Order Comment: Speci men Type: BLOOD SPECIMENOrdering Facility: [facility] Address: [address] [place] [address] Performed By: #### 5 7021-8 ####[facility] LABCLIA [id number] [place] [address] Monocytes (Bld) [#/Vol] 0.94 10*3/uL High <0.87 [facility] Comment on above: Order Comment: Speci men Type: BLOOD SPECIMENOrdering Facility: [facility] Address: [address] [place] [address] Performed By: #### 5 7021-8 ####[facility] LABCLIA [id number] [place] [address] Monocytes/100 WBC (Bld) 8.6 % Normal [facility] Comment on above: Order Comment: Speci men Type: BLOOD SPECIMENOrdering Facility: [facility] Address: [address] [place] [address] Performed By: #### 5 7021-8 ####[facility] LABCLIA [id number] [place] [address] Neutrophils (Bld) [#/Vol] 7.94 10*3/uL High 1.45-7.50 [facility] Comment on above: Order Comment: Speci men Type: BLOOD SPECIMENOrdering Facility: [facility] Address: [address] [place] [address] Performed By: #### 5 7021-8 ####[facility] LABCLIA [id number] [place] [address] Neutrophils/100 WBC (Bld) 72.8 % Normal [facility] Comment on above: Order Comment: Speci men Type: BLOOD SPECIMENOrdering Facility: [facility] Address: [address] [place] [address] Performed By: #### 5 7021-8 ####[facility] LABCLIA [id number] [place] [address] Nucleated RBC (Bld) [#/Vol] 10*3/uL Normal <0.01 [facility] Comment on above: Order Comment: Speci men Type: BLOOD SPECIMENOrdering Facility: [facility] Address: [address] [place] [address] Performed By: #### 5 7021-8 ####[facility] LABCLIA [id number] [place] [address] Nucleated RBC/100 WBC (Bld) [Ratio] 0.0 /100 WBC Normal [facility] Comment on above: Order Comment: Speci men Type: BLOOD SPECIMENOrdering Facility: [facility] Address: [address] [place] [address] Performed By: #### 5 7021-8 ####[facility] LABIA [id number] [place] [address] Platelet mean volume (Bld) [Entitic vol] 12.1 fL Normal 9.0-12.7 [facility] Comment on above: Order Comment: Speci men Type: BLOOD SPECIMENOrdering Facility: [facility] Address: [address] [place] [address] Performed By: #### 5 7021-8 ####[facility] LABIA [id number] [place] [address] Platelets (Bld) [#/Vol] 293 10*3/uL Normal 150-400 [facility] Comment on above: Order Comment: Speci men Type: BLOOD SPECIMENOrdering Facility: [facility] Address: [address] [place] [address] Performed By: #### 5 7021-8 ####[facility] LABIA [id number] [place] [address] RBC (Bld) [#/Vol] 4.10 10*6/uL Normal 3.90-5.20 [facility] Comment on above: Order Comment: Speci men Type: BLOOD SPECIMENOrdering Facility: [facility] Address: [address] [place] [address] Performed By: #### 5 7021-8 ####[facility] LABIA [id number] [place] [address] WBC (Bld) [#/Vol] 10.90 10*3/uL Normal 3.70-11.00 [facility] Comment on above: Order Comment: Speci men Type: BLOOD SPECIMENOrdering Facility: [facility] Address: [address] [place] [address] Performed By: #### 5 7021-8 ####[facility] LABIA [id number] [place] [address] CNOVSPon 05-20-2023 CNOVSP Visit (SP) Office (Barbara SUERO) -- ANDREW BARROS ([id number]) 1945 F Date Time Provider Department 05/20/23 3:00 PM SANDEEP LENZ During your visit today, we recorded the following information about you: Temperature Pulse Respiration Blood pressure 97.8 degrees 68/minute 16/minute 168/72 Weight Height 58.9 kg 1.626 m Sandeep Lenz MD 05/30/2023 5:58 AM Signed [facility] nephrology NAME: Andrew Barros CLINIC NO.: [id number] DATE OF SERVICE: May 20, 2023 (Eduardo) [...] outer quadrant, invasive ductal carcinoma, ER postive, [place]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 Mammograms at [facility] on 01/04/2021 Bi-Rads 2 benign. REVIEW [...] wounds or petechiae. ALLERGIES: ALLERGIES Allergen Reactions Ijomvod-Vub-Pny Red* Unknown Other reaction(s): AOF MEDICATIONS: anastrozole [...] Take 500 (more content not included)... Normal [facility] -- ANDREW BARROS ([id number]) 1945 F Date Time Provider Department 05/20/23 SANDEEP LENZ [facility] During your visit today, we recorded the following information about you: Samina Anderson 05/20/2023 4:06 PM Signed Refer to nephrology for hypercalcemia and kidney failure Lisa/Yan: Can you please refer patient and follow up? Thanks! Jennifer Christensen 05/22/2023 8:46 AM Signed Lisa: Information ready for you. [facility] 05/30/2023 7:49 AM Signed Records faxed to Nephrology. Jennifer Aviles 06/05/2023 10:00 AM Signed Called spoke with Deepika at Nephrology office. She states she has not received this referral and has asked us to please refax it. LISA: Please refax this referral to Nephrology office. Thank You. Jennifer [facility] 10[facility]36 AM Signed Records re-faxed [...] As of Date: 05/20/2023 Noted Allergy Reaction [id number] REDUCTASE INHIBIT*01/21/2018 16 - Unknown Comments: Other reaction(s): AOF Date Reviewed: 05/20/2023 Reviewed by: Arabella Cotter MA - Fully Assessed Reason for Visit: Referral Information [3245] Cmt: Nephrology Prescriptions as of 06/10/2023 - [...] Status:Closed by SAMINA ANDERSON on 06/10/23 Normal [facility] Calcium.ionized [Moles/Vol]o n 05-20-2023 Calcium.ionized (Bld) [Mass/Vol] 1.23 mmol/L 1.08 - 1.30 mmol/L [facility] Calcium.ionized adjusted to pH 7.4 (Bld) [Moles/Vol] 1.20 mmol/L 1.08 - 1.30 mmol/L [facility] Calcium.ionized (Bld) [Mass/Vol] 1.23 mmol/L Normal 1.08-1.30 [facility] Comment on above: Order Comment: Speci men Type: BLOOD SPECIMENOrdering Facility: [facility] Address: [address] [place] [address] Performed By: #### 1 995-0 ####[facility] LABIA [id number] [address] [facility] Calcium.ionized adjusted to pH 7.4 (Bld) [Moles/Vol] 1.20 mmol/L Normal 1.08-1.30 [facility] Comment on above: Order Comment: Speci men Type: BLOOD SPECIMENOrdering Facility: [facility] Address: [address] [place] [address] Performed By: #### 1 995-0 ####[facility] LABCLIA [id number] [place] [address] [place] Comprehensive metabolic 2000 panelon 05-20-2023 Albumin [Mass/Vol] 4.6 g/dL Normal 3.9-4.9 [facility] Comment on above: Order Comment: Speci men Type: BLOOD SPECIMENOrdering Facility: [facility] Address: [address] [place] [address] Performed By: #### 2 4323-8 ####[facility] LABCLIA [id number] [place] [address] ALP [Catalytic activity/Vol] 96 U/L Normal 34-123 [facility] Comment on above: Order Comment: Speci men Type: BLOOD SPECIMENOrdering Facility: [facility] Address: [address] [place] [address] Performed By: #### 2 4323-8 ####[facility] LABCLIA [id number] [place] [address] ALT [Catalytic activity/Vol] 13 U/L Normal 7-38 [facility] Comment on above: Order Comment: Speci men Type: BLOOD SPECIMENOrdering Facility: [facility] Address: [address] [place] [address] Performed By: #### 2 4323-8 ####[facility] LABCLIA [id number] [place] [address] Anion gap [Moles/Vol] 13 mmol/L Normal 9-18 [facility] Comment on above: Order Comment: Speci men Type: BLOOD SPECIMENOrdering Facility: [facility] Address: [address] [address] Performed By: #### 2 4323-8 ####[facility] LABCLIA [id number] [place] [address] AST [Catalytic activity/Vol] 18 U/L Normal 13-35 [facility] Comment on above: Order Comment: Speci men Type: BLOOD SPECIMENOrdering Facility: [facility] Address: [address] [place] [address] Performed By: #### 2 4323-8 ####[facility] LABCLIA [id number] [place] [address] Bilirubin [Mass/Vol] 0.3 mg/dL Normal 0.2-1.3 [facility] Comment on above: Order Comment: Speci men Type: BLOOD SPECIMENOrdering Facility: [facility] Address: [address] [address] Performed By: #### 2 4323-8 ####[facility] LABCLIA [id number] [place] [address] Calcium [Mass/Vol] 10.0 mg/dL Normal 8.5-10.2 [facility] Comment on above: Order Comment: Speci men Type: BLOOD SPECIMENOrdering Facility: [facility] Address: [address] [place] [address] Performed By: #### 2 4323-8 ####[facility] LABCLIA [id number] [place] [address] Chloride [Moles/Vol] 101 mmol/L Normal 97-105 [facility] Comment on above: Order Comment: Speci men Type: BLOOD SPECIMENOrdering Facility: [facility] Address: [address] [place] [address] Performed By: #### 2 4323-8 ####[facility] LABCLIA [id number] [place] [address] CO2 [Moles/Vol] 26 mmol/L Normal 22-30 [facility] Comment on above: Order Comment: Speci men Type: BLOOD SPECIMENOrdering Facility: [facility] Address: [address] [place] [address] Performed By: #### 2 4323-8 ####[facility] LABCLIA [id number] [place] [address] Creatinine [Mass/Vol] 1.32 mg/dL High 0.58-0.96 [facility] Comment on above: Order Comment: Speci men Type: BLOOD SPECIMENOrdering Facility: [facility] Address: [address] [place] [address] Performed By: #### 2 4323-8 ####[facility] LABCLIA [id number] [place] [address] Creatinine and Glomerular filtration rate.predicted panel (S/P/Bld) 41 mL/min/1.73m??? Low >=60 [facility] Comment on above: Order Comment: Anastacio irene Type: BLOOD SPECIMENOrdering Facility: [facility] Address: [address] [place] [address] Result Comment: Sugar mated Glomerular Filtration Rate [...] actual GFR. Performed By: #### 2 4323-8 ####[facility] LABCLIA [id number] [place] [address] Glucose [Mass/Vol] 119 mg/dL High 74-99 [facility] Comment on above: Order Comment: Anastacio bonilla Type: BLOOD SPECIMENOrdering Facility: [facility] Address: [address] [place] [address] Result Comment: The [place] Diabetes Association (ADA) provides guidance for cutoff [...] Standards of Medical Care in Diabetes 2016, [place] Diabetes Association. Diabetes Care. 2016.39(Suppl 1). Performed By: #### 2 4323-8 ####[facility] LABCLIA [id number] [place] [address] Potassium [Moles/Vol] 4.1 mmol/L Normal 3.7-5.1 [facility] Comment on above: Order Comment: Speci men Type: BLOOD SPECIMENOrdering Facility: [facility] Address: [address] [place] [address] Performed By: #### 2 4323-8 ####[facility] LABIA [id number] [place] [address] Protein [Mass/Vol] 7.6 g/dL Normal 6.3-8.0 [facility] Comment on above: Order Comment: Speci men Type: BLOOD SPECIMENOrdering Facility: [facility] Address: [address] [place] [address] Performed By: #### 2 4323-8 ####[facility] LABIA [id number] [place] [address] Sodium [Moles/Vol] 140 mmol/L Normal 136-144 [facility] Comment on above: Order Comment: Speci men Type: BLOOD SPECIMENOrdering Facility: [facility] Address: [address] [place] [address] Performed By: #### 2 4323-8 ####[facility] LABIA [id number] [place] [address] Urea nitrogen [Mass/Vol] 32 mg/dL High 7-21 [facility] Comment on above: Order Comment: Speci men Type: BLOOD SPECIMENOrdering Facility: [facility] Address: [address] [place] [address] Performed By: #### 2 4323-8 ####[facility] LABIA [id number] [place] [address] CNSWon 05-09-2023 CNSW Social Work (HEMASA) -- ANDREW BARROS ([id number]) 1945 F Date Time Provider Department 05/09/23 ALEIDA VARGAS During your visit today, we recorded the following information about you: Aleida Vargas LSW 05/09/2023 11:00 AM Signed Patient appears on the [facility] First Time Treatment List for a non-oncology treatment. No psychosocial assessment is indicated. DENIA Gupta-Pritesh Allergies As of Date: 05/09/2023 Noted Allergy Reaction WIETPBE-KFH-FOS REDUCTASE INHIBIT*01/21/2018 16 - Unknown Comments: Other [...] Status:Closed by ALEIDA VARGAS on 05/09/23 Normal [facility] CA 15-3 BLDon 05-01-2023 Cancer Ag 15-3 Qn 9.9 U/mL <26.0 U/mL [facility] CA 27.29 BLOODon 05-01-2023 Cancer Ag 27-29 Qn 12.5 [arb'U]/mL <38.6 U/mL C [facility] CBC W Auto Differential pane l (Bld)on 05-01-2023 Basophils (Bld) [#/Vol] 0.06 10*3/uL <0.11 k/uL [facility] Basophils/100 WBC (Bld) 0.6 % [facility] Differential cell count method Nom (Bld) Auto [facility] Eosinophils (Bld) [#/Vol] 0.18 10*3/uL <0.46 k/uL [facility] Eosinophils/100 WBC (Bld) 1.9 % [facility] Erythrocyte distribution width (RBC) [Ratio] 12.7 % 11.5 - 15.0 % [facility] Hematocrit (Bld) [Volume fraction] 36.4 % 36.0 - 46.0 % [facility] Hemoglobin (Bld) [Mass/Vol] 12.2 g/dL 11.5 - 15.5 g/dL [facility] Immature granulocytes (Bld) [#/Vol] 0.03 10*3/uL <0.10 k/uL [facility] Immature granulocytes/100 WBC (Bld) 0.3 % [facility] Lymphocytes (Bld) [#/Vol] 1.62 10*3/uL 1.00 - 4.00 k/uL [facility] Lymphocytes/100 WBC (Bld) 17.3 % [facility] MCH (RBC) [Entitic mass] 32.0 pg 26.0 - 34.0 pg [facility] MCHC (RBC) [Mass/Vol] 33.5 g/dL 30.5 - 36.0 g/dL [facility] MCV (RBC) [Entitic vol] 95.5 fL 80.0 - 100.0 fL [facility] Monocytes (Bld) [#/Vol] 0.99 10*3/uL High <0.87 k/uL [facility] Monocytes/100 WBC (Bld) 10.6 % [facility] Neutrophils (Bld) [#/Vol] 6.50 10*3/uL 1.45 - 7.50 k/uL [facility] Neutrophils/100 WBC (Bld) 69.3 % [facility] Nucleated RBC (Bld) [#/Vol] <0.01 k/uL [facility] Nucleated RBC/100 WBC (Bld) [Ratio] 0.0 /100 WBC [facility] Platelet mean volume (Bld) [Entitic vol] 11.9 fL 9.0 - 12.7 fL [facility] Platelets (Bld) [#/Vol] 252 10*3/uL 150 - 400 k/uL [facility] RBC (Bld) [#/Vol] 3.81 10*6/uL Low 3.90 - 5.2 0 m/uL [facility] WBC (Bld) [#/Vol] 9.38 10*3/uL 3.70 - 11.00 k/uL [facility] Comprehensive metabolic 2000 panelon 05-01-2023 Albumin [Mass/Vol] 4.3 g/dL 3.9 - 4.9 g/dL [facility] ALP [Catalytic activity/Vol] 93 U/L 34 - 123 U/L [facility] ALT [Catalytic activity/Vol] 14 U/L 7 - 38 U/L [facility] Anion gap [Moles/Vol] 14 mmol/L 9 - 18 mmol/L [facility] AST [Catalytic activity/Vol] 18 U/L 13 - 35 U/L [facility] Bilirubin [Mass/Vol] 0.3 mg/dL 0.2 - 1 .3 mg/dL [facility] Calcium [Mass/Vol] 10.6 mg/dL High 8.5 - 10. 2 mg/dL [facility] Chloride [Moles/Vol] 98 mmol/L 97 - 10 5 mmol/L [facility] CO2 [Moles/Vol] 26 mmol/L 22 - 30 mmol/L [facility] Creatinine [Mass/Vol] 1.38 mg/dL High 0.58 - 0.96 mg/dL [facility] Estimated Glomerular Filtration Rate 39 mL/min/1.73m Low >=60 mL/min/1.73 m [facility] Glucose [Mass/Vol] 207 mg/dL High 74 - 99 mg/dL [facility] Potassium [Moles/Vol] 3.7 mmol/L 3.7 - 5.1 mmol/L [facility] Protein [Mass/Vol] 6.9 g/dL 6.3 - 8.0 g/dL [facility] Sodium [Moles/Vol] 138 mmol/L 136 - 144 mmol/L [facility] Urea nitrogen [Mass/Vol] 39 mg/dL High 7 - 21 mg/dL [facility] CBC W Auto Differential pane l (Bld)on 04-30-2023 Basophils (Bld) [#/Vol] 0.06 10*3/uL Normal <0.11 [facility] Comment on above: Order Comment: Speci men Type: BLOOD SPECIMENOrdering Facility: [facility] Address: [address] [place] [address] Performed By: #### 5 7021-8 ####[facility] LABCLIA [id number] [place] [address] Basophils/100 WBC (Bld) 0.6 % Normal [facility] Comment on above: Order Comment: Speci men Type: BLOOD SPECIMENOrdering Facility: [facility] Address: [address] [address] Performed By: #### 5 7021-8 ####[facility] LABCLIA [id number] [place] [address] Differential cell count method Nom (Bld) Auto Normal [facility] Comment on above: Order Comment: Speci men Type: BLOOD SPECIMENOrdering Facility: [facility] Address: [address] [address] Performed By: #### 5 7021-8 ####[facility] LABCLIA [id number] [place] [address] Eosinophils (Bld) [#/Vol] 0.18 10*3/uL Normal <0.46 [facility] Comment on above: Order Comment: Speci men Type: BLOOD SPECIMENOrdering Facility: [facility] Address: [address] [address] Performed By: #### 5 7021-8 ####[facility] LABCLIA [id number] [place] [address] Eosinophils/100 WBC (Bld) 1.9 % Normal [facility] Comment on above: Order Comment: Speci men Type: BLOOD SPECIMENOrdering Facility: [facility] Address: [address] [place] [address] Performed By: #### 5 7021-8 ####[facility] LABCLIA [id number] [place] [address] Erythrocyte distribution width (RBC) [Ratio] 12.7 % Normal 11.5-15.0 [facility] Comment on above: Order Comment: Speci men Type: BLOOD SPECIMENOrdering Facility: [facility] Address: [address] [place] [address] Performed By: #### 5 7021-8 ####[facility] LABCLIA [id number] [place] [address] Hematocrit (Bld) [Volume fraction] 36.4 % Normal 36.0-46.0 [facility] Comment on above: Order Comment: Speci men Type: BLOOD SPECIMENOrdering Facility: [facility] Address: [address] [place] [address] Performed By: #### 5 7021-8 ####[facility] LABCLIA [id number] [place] [address] Hemoglobin (Bld) [Mass/Vol] 12.2 g/dL Normal 11.5-15.5 [facility] Comment on above: Order Comment: Speci men Type: BLOOD SPECIMENOrdering Facility: [facility] Address: [address] [place] [address] Performed By: #### 5 7021-8 ####[facility] LABCLIA [id number] [place] [address] Immature granulocytes (Bld) [#/Vol] 0.03 10*3/uL Normal <0.10 [facility] Comment on above: Order Comment: Speci men Type: BLOOD SPECIMENOrdering Facility: [facility] Address: [address] [place] [address] Performed By: #### 5 7021-8 ####[facility] LABCLIA [id number] [place] [address] Immature granulocytes/100 WBC (Bld) 0.3 % Normal [facility] Comment on above: Order Comment: Speci men Type: BLOOD SPECIMENOrdering Facility: [facility] Address: [address] [place] [address] Performed By: #### 5 7021-8 ####[facility] LABCLIA [id number] [place] [address] Lymphocytes (Bld) [#/Vol] 1.62 10*3/uL Normal 1.00-4.00 [facility] Comment on above: Order Comment: Speci men Type: BLOOD SPECIMENOrdering Facility: [facility] Address: [address] [place] [address] Performed By: #### 5 7021-8 ####[facility] LABCLIA [id number] [place] [address] Lymphocytes/100 WBC (Bld) 17.3 % Normal [facility] Comment on above: Order Comment: Speci men Type: BLOOD SPECIMENOrdering Facility: [facility] Address: [address] [address] Performed By: #### 5 7021-8 ####[facility] LABCLIA [id number] [place] [address] MCH (RBC) [Entitic mass] 32.0 pg Normal 26.0-34.0 [facility] Comment on above: Order Comment: Speci men Type: BLOOD SPECIMENOrdering Facility: [facility] Address: [address] [place] [address] Performed By: #### 5 7021-8 ####[facility] LABCLIA [id number] [place] [address] MCHC (RBC) [Mass/Vol] 33.5 g/dL Normal 30.5-36.0 [facility] Comment on above: Order Comment: Speci men Type: BLOOD SPECIMENOrdering Facility: [facility] Address: [address] [place] [address] Performed By: #### 5 7021-8 ####[facility] LABIA [id number] [place] [address] MCV (RBC) [Entitic vol] 95.5 fL Normal 80.0-100.0 [facility] Comment on above: Order Comment: Speci men Type: BLOOD SPECIMENOrdering Facility: [facility] Address: [address] [place] [address] Performed By: #### 5 7021-8 ####[facility] LABIA [id number] [place] [address] Monocytes (Bld) [#/Vol] 0.99 10*3/uL High <0.87 [facility] Comment on above: Order Comment: Speci men Type: BLOOD SPECIMENOrdering Facility: [facility] Address: [address] [place] [address] Performed By: #### 5 7021-8 ####[facility] LABCLIA [id number] [place] [address] Monocytes/100 WBC (Bld) 10.6 % Normal [facility] Comment on above: Order Comment: Speci men Type: BLOOD SPECIMENOrdering Facility: [facility] Address: [address] [place] [address] Performed By: #### 5 7021-8 ####[facility] LABCLIA [id number] [place] [address] Neutrophils (Bld) [#/Vol] 6.50 10*3/uL Normal 1.45-7.50 [facility] Comment on above: Order Comment: Speci men Type: BLOOD SPECIMENOrdering Facility: [facility] Address: [address] [place] [address] Performed By: #### 5 7021-8 ####[facility] LABCLIA [id number] [place] [address] Neutrophils/100 WBC (Bld) 69.3 % Normal [facility] Comment on above: Order Comment: Speci men Type: BLOOD SPECIMENOrdering Facility: [facility] Address: [address] [place] [address] Performed By: #### 5 7021-8 ####[facility] LABCLIA [id number] [place] [address] Nucleated RBC (Bld) [#/Vol] 10*3/uL Normal <0.01 [facility] Comment on above: Order Comment: Speci men Type: BLOOD SPECIMENOrdering Facility: [facility] Address: [address] [place] [address] Performed By: #### 5 7021-8 ####[facility] LABCLIA [id number] [place] [address] Nucleated RBC/100 WBC (Bld) [Ratio] 0.0 /100 WBC Normal [facility] Comment on above: Order Comment: Speci men Type: BLOOD SPECIMENOrdering Facility: [facility] Address: [address] [place] [address] Performed By: #### 5 7021-8 ####[facility] LABCLIA [id number] [place] [address] Platelet mean volume (Bld) [Entitic vol] 11.9 fL Normal 9.0-12.7 [facility] Comment on above: Order Comment: Speci men Type: BLOOD SPECIMENOrdering Facility: [facility] Address: [address] [place] [address] Performed By: #### 5 7021-8 ####[facility] LABCLIA [id number] [place] [address] Platelets (Bld) [#/Vol] 252 10*3/uL Normal 150-400 [facility] Comment on above: Order Comment: Speci men Type: BLOOD SPECIMENOrdering Facility: [facility] Address: [address] [place] [address] Performed By: #### 5 7021-8 ####[facility] LABIA [id number] [place] [address] RBC (Bld) [#/Vol] 3.81 10*6/uL Low 3.90-5.20 [facility] Comment on above: Order Comment: Speci men Type: BLOOD SPECIMENOrdering Facility: [facility] Address: [address] [place] [address] Performed By: #### 5 7021-8 ####[facility] LABIA [id number] [place] [address] WBC (Bld) [#/Vol] 9.38 10*3/uL Normal 3.70-11.00 [facility] Comment on above: Order Comment: Speci men Type: BLOOD SPECIMENOrdering Facility: [facility] Address: [address] [place] [address] Performed By: #### 5 7021-8 ####[facility] LABIA [id number] [place] [address] Cancer Ag15-3 SerPl-aCncon 0 04-30-2023 Cancer Ag 15-3 Qn 9.9 U/mL Normal <26.0 [facility] Comment on above: Order Comment: Speci men Type: BLOOD SPECIMENOrdering Facility: [facility] Address: [address] [place] [address] Result Comment: The CA 15-3 test methodology used is the Electrochemiluminescence Immunoassay by [employer]. Results obtained with different methods or kits cannot be used interchangeably. Performed By: #### 6 875-9 ####[facility] LABCLIA [id number] [address] [facility] Cancer Ag27-29 SerPl-aCncon 04-30-2023 Cancer Ag 27-29 Qn 12.5 [arb'U]/mL Normal <38.6 [facility] Comment on above: Order Comment: Speci men Type: BLOOD SPECIMENOrdering Facility: [facility] Address: [address] [place] [address] Result Comment: The CA27.29 test was performed using the Siemens Oxigeneaur XP chemiluminometric immunoassay method. Results obtained with different assay methods or kits cannot be used interchangeably. Performed By: #### 1 7842-6 ####[facility] LABCLIA [id number] [address] [facility] Comprehensive metabolic 2000 panelon 04-30-2023 Albumin [Mass/Vol] 4.3 g/dL Normal 3.9-4.9 [facility] Comment on above: Order Comment: Speci men Type: BLOOD SPECIMENOrdering Facility: [facility] Address: [address] [place] [address] Performed By: #### 2 4323-8 ####[facility] LABCLIA [id number] [place] [address] ALP [Catalytic activity/Vol] 93 U/L Normal 34-123 [facility] Comment on above: Order Comment: Speci men Type: BLOOD SPECIMENOrdering Facility: [facility] Address: [address] [address] Performed By: #### 2 4323-8 ####[facility] LABCLIA [id number] [place] [address] ALT [Catalytic activity/Vol] 14 U/L Normal 7-38 [facility] Comment on above: Order Comment: Speci men Type: BLOOD SPECIMENOrdering Facility: [facility] Address: [address] [address] Performed By: #### 2 4323-8 ####[facility] LABCLIA [id number] [place] [address] Anion gap [Moles/Vol] 14 mmol/L Normal 9-18 [facility] Comment on above: Order Comment: Speci men Type: BLOOD SPECIMENOrdering Facility: [facility] Address: [address] [address] Performed By: #### 2 4323-8 ####[facility] LABCLIA [id number] [place] [address] AST [Catalytic activity/Vol] 18 U/L Normal 13-35 [facility] Comment on above: Order Comment: Speci men Type: BLOOD SPECIMENOrdering Facility: [facility] Address: [address] [address] Performed By: #### 2 4323-8 ####[facility] LABCLIA [id number] [place] [address] Bilirubin [Mass/Vol] 0.3 mg/dL Normal 0.2-1.3 [facility] Comment on above: Order Comment: Speci men Type: BLOOD SPECIMENOrdering Facility: [facility] Address: [address] [address] Performed By: #### 2 4323-8 ####[facility] LABCLIA [id number] [place] [address] Calcium [Mass/Vol] 10.6 mg/dL High 8.5-10.2 [facility] Comment on above: Order Comment: Speci men Type: BLOOD SPECIMENOrdering Facility: [facility] Address: [address] [place] [address] Performed By: #### 2 4323-8 ####[facility] LABCLIA [id number] [place] [address] Chloride [Moles/Vol] 98 mmol/L Normal 97-105 [facility] Comment on above: Order Comment: Speci men Type: BLOOD SPECIMENOrdering Facility: [facility] Address: [address] [place] [address] Performed By: #### 2 4323-8 ####[facility] LABCLIA [id number] [place] [address] CO2 [Moles/Vol] 26 mmol/L Normal 22-30 [facility] Comment on above: Order Comment: Speci men Type: BLOOD SPECIMENOrdering Facility: [facility] Address: [address] [place] [address] Performed By: #### 2 4323-8 ####[facility] LABCLIA [id number] [place] [address] Creatinine [Mass/Vol] 1.38 mg/dL High 0.58-0.96 [facility] Comment on above: Order Comment: Speci men Type: BLOOD SPECIMENOrdering Facility: [facility] Address: [address] [place] [address] Performed By: #### 2 4323-8 ####[facility] LABCLIA [id number] [place] [address] ESTIMATED GLOMERULAR FILTRATION RATE 39 mL/min/1.73m??? Low >=60 [facility] Comment on above: Order Comment: Speci men Type: BLOOD SPECIMENOrdering Facility: [facility] Address: [address] [place] [address] Result Comment: Sugar mated Glomerular Filtration Rate [...] actual GFR. Performed By: #### 2 4323-8 ####[facility] LABCLIA [id number] [place] [address] Glucose [Mass/Vol] 207 mg/dL High 74-99 [facility] Comment on above: Order Comment: Speci men Type: BLOOD SPECIMENOrdering Facility: [facility] Address: [address] [place] [id number] Result Comment: The [place] [employer] Association (ADA) provides guidance for cutoff [...] Standards of Medical Care in Diabetes 2016, [place] [employer] Association. Diabetes Care. 2016.39(Suppl 1). Performed By: #### 2 4323-8 ####[facility] LABCLIA [id number] [place] [address] Potassium [Moles/Vol] 3.7 mmol/L Normal 3.7-5.1 [facility] Comment on above: Order Comment: Anastacio bonilla Type: BLOOD SPECIMENOrdering Facility: [facility] Address: [address] [place] [address] Performed By: #### 2 4323-8 ####[facility] LABCLIA [id number] [place] [address] Protein [Mass/Vol] 6.9 g/dL Normal 6.3-8.0 [facility] Comment on above: Order Comment: Speci men Type: BLOOD SPECIMENOrdering Facility: [facility] Address: [address] [address] Performed By: #### 2 4323-8 ####[facility] LABCLIA [id number] [place] [address] Sodium [Moles/Vol] 138 mmol/L Normal 136-144 [facility] Comment on above: Order Comment: Speci men Type: BLOOD SPECIMENOrdering Facility: [facility] Address: [address] [place] [address] Performed By: #### 2 4323-8 ####[facility] LABCLIA [id number] [place] [address] Urea nitrogen [Mass/Vol] 39 mg/dL High 7-21 [facility] Comment on above: Order Comment: Speci men Type: BLOOD SPECIMENOrdering Facility: [facility] Address: [address] [place] [address] Performed By: #### 2 4323-8 ####[facility] LABCLIA [id number] [place] [address] PTH RELATED PEPTIDEon 2022 PTH RELATED PEPTIDE 3.9 pmol/L High 0.0-3.4 [facility] Comment on above: Order Comment: Speci men Type: BLOOD SPECIMENOrdering Facility: [facility] Address: [address] [place] [address] Result Comment: INTE RPRETIVE INFORMATION: Parathyroid Hormone-Related Peptide This test was developed and its performance characteristics determined by [facility]. It has not been cleared or approved by the US Food and Drug Administration. This test was performed in a CLIA certified laboratory and is intended for clinical purposes. Performed By: [facility] [address] [place] [address] Second Floor Operator: Apolinar Fernandez MD, PhD CLIA Number: [id number] Performed By: #### P THPEP ####[facility] [id number] [address] [place] [id number] CBC W Auto Differential pane l (Bld)on 04-29-2023 Basophils (Bld) [#/Vol] 0.05 10*3/uL Normal <0.11 [facility] Comment on above: Order Comment: Speci men Type: BLOOD SPECIMENOrdering Facility: [facility] Address: [address] [place] [address] Performed By: #### 5 7021-8 ####[facility] LABCLIA [id number] [place] [address] Basophils/100 WBC (Bld) 0.5 % Normal [facility] Comment on above: Order Comment: Speci men Type: BLOOD SPECIMENOrdering Facility: [facility] Address: [address] [place] [address] Performed By: #### 5 7021-8 ####[facility] LABCLIA [id number] [place] [address] Differential cell count method Nom (Bld) Auto Normal [facility] Comment on above: Order Comment: Speci men Type: BLOOD SPECIMENOrdering Facility: [facility] Address: [address] [place] [address] Performed By: #### 5 7021-8 ####[facility] LABCLIA [id number] [place] [address] Eosinophils (Bld) [#/Vol] 0.17 10*3/uL Normal <0.46 [facility] Comment on above: Order Comment: Speci men Type: BLOOD SPECIMENOrdering Facility: [facility] Address: [address] [place] [address] Performed By: #### 5 7021-8 ####[facility] LABCLIA [id number] [place] [address] Eosinophils/100 WBC (Bld) 1.6 % Normal [facility] Comment on above: Order Comment: Speci men Type: BLOOD SPECIMENOrdering Facility: [facility] Address: [address] [place] [address] Performed By: #### 5 7021-8 ####[facility] LABCLIA [id number] [place] [address] Erythrocyte distribution width (RBC) [Ratio] 12.7 % Normal 11.5-15.0 [facility] Comment on above: Order Comment: Speci men Type: BLOOD SPECIMENOrdering Facility: [facility] Address: [address] [place] [address] Performed By: #### 5 7021-8 ####[facility] LABCLIA [id number] [place] [address] Hematocrit (Bld) [Volume fraction] 40.7 % Normal 36.0-46.0 [facility] Comment on above: Order Comment: Speci men Type: BLOOD SPECIMENOrdering Facility: [facility] Address: [address] [place] [address] Performed By: #### 5 7021-8 ####[facility] LABCLIA [id number] [place] [address] Hemoglobin (Bld) [Mass/Vol] 13.4 g/dL Normal 11.5-15.5 [facility] Comment on above: Order Comment: Speci men Type: BLOOD SPECIMENOrdering Facility: [facility] Address: [address] [place] [address] Performed By: #### 5 7021-8 ####[facility] LABCLIA [id number] [place] [address] Immature granulocytes (Bld) [#/Vol] 10*3/uL Normal <0.10 [facility] Comment on above: Order Comment: Speci men Type: BLOOD SPECIMENOrdering Facility: [facility] Address: [address] [place] [address] Performed By: #### 5 7021-8 ####[facility] LABIA [id number] [place] [address] Immature granulocytes/100 WBC (Bld) 0.2 % Normal [facility] Comment on above: Order Comment: Speci men Type: BLOOD SPECIMENOrdering Facility: [facility] Address: [address] [place] [address] Performed By: #### 5 7021-8 ####RULEROCHEL[facility] LABCLIA [id number] [place] [address] Lymphocytes (Bld) [#/Vol] 1.80 10*3/uL Normal 1.00-4.00 [facility] Comment on above: Order Comment: Speci men Type: BLOOD SPECIMENOrdering Facility: [facility] Address: [address] [place] [address] Performed By: #### 5 7021-8 ####[facility] LABCLIA [id number] [place] [address] Lymphocytes/100 WBC (Bld) 16.9 % Normal [facility] Comment on above: Order Comment: Speci men Type: BLOOD SPECIMENOrdering Facility: [facility] Address: [address] [place] [address] Performed By: #### 5 7021-8 ####[facility] LABIA [id number] [place] [address] MCH (RBC) [Entitic mass] 31.2 pg Normal 26.0-34.0 [facility] Comment on above: Order Comment: Speci men Type: BLOOD SPECIMENOrdering Facility: [facility] Address: [address] [place] [address] Performed By: #### 5 7021-8 ####[facility] LABCLIA [id number] [place] [address] MCHC (RBC) [Mass/Vol] 32.9 g/dL Normal 30.5-36.0 [facility] Comment on above: Order Comment: Speci men Type: BLOOD SPECIMENOrdering Facility: [facility] Address: [address] [place] [address] Performed By: #### 5 7021-8 ####[facility] LABCLIA [id number] [place] [address] MCV (RBC) [Entitic vol] 94.7 fL Normal 80.0-100.0 [facility] Comment on above: Order Comment: Speci men Type: BLOOD SPECIMENOrdering Facility: [facility] Address: [address] [place] [address] Performed By: #### 5 7021-8 ####[facility] LABCLIA [id number] [place] [address] Monocytes (Bld) [#/Vol] 0.88 10*3/uL High <0.87 [facility] Comment on above: Order Comment: Speci men Type: BLOOD SPECIMENOrdering Facility: [facility] Address: [address] [place] [address] Performed By: #### 5 7021-8 ####[facility] LABCLIA [id number] [place] [address] Monocytes/100 WBC (Bld) 8.3 % Normal [facility] Comment on above: Order Comment: Speci men Type: BLOOD SPECIMENOrdering Facility: [facility] Address: [address] [place] [address] Performed By: #### 5 7021-8 ####[facility] LABCLIA [id number] [place] [address] Neutrophils (Bld) [#/Vol] 7.74 10*3/uL High 1.45-7.50 [facility] Comment on above: Order Comment: Speci men Type: BLOOD SPECIMENOrdering Facility: [facility] Address: [address] [place] [address] Performed By: #### 5 7021-8 ####[facility] LABCLIA [id number] [place] [address] Neutrophils/100 WBC (Bld) 72.5 % Normal [facility] Comment on above: Order Comment: Speci men Type: BLOOD SPECIMENOrdering Facility: [facility] Address: [address] [address] Performed By: #### 5 7021-8 ####[facility] LABCLIA [id number] [place] [address] Nucleated RBC (Bld) [#/Vol] 10*3/uL Normal <0.01 [facility] Comment on above: Order Comment: Speci men Type: BLOOD SPECIMENOrdering Facility: [facility] Address: [address] [address] Performed By: #### 5 7021-8 ####[facility] LABCLIA [id number] [place] [address] Nucleated RBC/100 WBC (Bld) [Ratio] 0.0 /100 WBC Normal [facility] Comment on above: Order Comment: Speci men Type: BLOOD SPECIMENOrdering Facility: [facility] Address: [address] [address] Performed By: #### 5 7021-8 ####[facility] LABCLIA [id number] [place] [address] Platelet mean volume (Bld) [Entitic vol] 10.7 fL Normal 9.0-12.7 [facility] Comment on above: Order Comment: Speci men Type: BLOOD SPECIMENOrdering Facility: [facility] Address: [address] [address] Performed By: #### 5 7021-8 ####[facility] LABCLIA [id number] [place] [address] Platelets (Bld) [#/Vol] 280 10*3/uL Normal 150-400 [facility] Comment on above: Order Comment: Speci men Type: BLOOD SPECIMENOrdering Facility: [facility] Address: [address] [address] Performed By: #### 5 7021-8 ####[facility] LABCLIA [id number] [place] [address] RBC (Bld) [#/Vol] 4.30 10*6/uL Normal 3.90-5.20 [facility] Comment on above: Order Comment: Speci men Type: BLOOD SPECIMENOrdering Facility: [facility] Address: [address] [place], [place] [address] Performed By: #### 5 7021-8 ####[facility] LABCLIA [id number] [place] [address] WBC (Bld) [#/Vol] 10.66 10*3/uL Normal 3.70-11.00 [facility] Comment on above: Order Comment: Speci men Type: BLOOD SPECIMENOrdering Facility: [facility] Address: [address] [place] [address] Performed By: #### 5 7021-8 ####[facility] LABCLIA [id number] [place] [address] CNOVSPon 04-29-2023 CNOVSP Visit (SP) Office (H EMASA) -- ANDREW BARROS ([id number]) 1945 F Date Time Provider Department 04/29/23 3:15 PM SANDEEP LENZ During your visit today, we recorded the following information about you: Temperature Pulse Respiration Blood pressure 97 degrees 66/minute 16/minute 153/66 Weight Height 58.2 kg 1.626 m Sandeep Lenz MD 05/05/2023 6:04 PM Signed NAME: Andrew Barros [facility] NO.: [id number] DATE OF SERVICE: April 29, 2023 (Eduardo) [...] outer quadrant, invasive ductal carcinoma, ER postive, [place]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 Mammograms at [facility] on 01/04/2021 Bi-Rads 2 benign. REVIEW [...] of recurring mass. ALLERGIES: ALLERGIES Allergen Reactions Smsncrt-Gli-Lmb Red* Unknown Other reaction(s): AOF MEDICATIONS: doxazosin (CARDURA) 4 mg tablet Take 4 mg by mouth daily at bedtime. aspirin (ASPIR-81 ORAL) Take 81 mg by mo (more content not included)... Normal [facility] Comprehensive metabolic 2000 panelon 04-29-2023 Albumin [Mass/Vol] 4.4 g/dL Normal 3.9-4.9 [facility] Comment on above: Order Comment: Speci men Type: BLOOD SPECIMENOrdering Facility: [facility] Address: [address] [place] [address] Performed By: #### 2 4323-8 ####[facility] LABCLIA [id number] [place] [address] ALP [Catalytic activity/Vol] 98 U/L Normal 34-123 [facility] Comment on above: Order Comment: Speci men Type: BLOOD SPECIMENOrdering Facility: [facility] Address: [address] [address] Performed By: #### 2 4323-8 ####[facility] LABCLIA [id number] [place] [address] ALT [Catalytic activity/Vol] 15 U/L Normal 7-38 [facility] Comment on above: Order Comment: Speci men Type: BLOOD SPECIMENOrdering Facility: [facility] Address: [address] [place] [address] Performed By: #### 2 4323-8 ####[facility] LABCLIA [id number] [place] [address] Anion gap [Moles/Vol] 15 mmol/L Normal 9-18 [facility] Comment on above: Order Comment: Speci men Type: BLOOD SPECIMENOrdering Facility: [facility] Address: [address] [address] Performed By: #### 2 4323-8 ####[facility] LABCLIA [id number] [place] [address] AST [Catalytic activity/Vol] 20 U/L Normal 13-35 [facility] Comment on above: Order Comment: Speci men Type: BLOOD SPECIMENOrdering Facility: [facility] Address: [address] [address] Performed By: #### 2 4323-8 ####[facility] LABCLIA [id number] [place] [address] Bilirubin [Mass/Vol] 0.4 mg/dL Normal 0.2-1.3 [facility] Comment on above: Order Comment: Speci men Type: BLOOD SPECIMENOrdering Facility: [facility] Address: [address] [place] [address] Performed By: #### 2 4323-8 ####[facility] LABCLIA [id number] [place] [address] Calcium [Mass/Vol] 11.1 mg/dL High 8.5-10.2 [facility] Comment on above: Order Comment: Speci men Type: BLOOD SPECIMENOrdering Facility: [facility] Address: [address] [place] [address] Performed By: #### 2 4323-8 ####[facility] LABCLIA [id number] [place] [address] Chloride [Moles/Vol] 98 mmol/L Normal 97-105 [facility] Comment on above: Order Comment: Speci men Type: BLOOD SPECIMENOrdering Facility: [facility] Address: [address] [place] [address] Performed By: #### 2 4323-8 ####[facility] LABCLIA [id number] [place] [address] CO2 [Moles/Vol] 28 mmol/L Normal 22-30 [facility] Comment on above: Order Comment: Speci men Type: BLOOD SPECIMENOrdering Facility: [facility] Address: [address] [place] [address] Performed By: #### 2 4323-8 ####[facility] LABCLIA [id number] [place] [address] Creatinine [Mass/Vol] 1.49 mg/dL High 0.58-0.96 [facility] Comment on above: Order Comment: Speci men Type: BLOOD SPECIMENOrdering Facility: [facility] Address: [address] [place] [address] Performed By: #### 2 4323-8 ####[facility] LABCLIA [id number] [place] [address] ESTIMATED GLOMERULAR FILTRATION RATE 36 mL/min/1.73m??? Low >=60 [facility] Comment on above: Order Comment: Speci men Type: BLOOD SPECIMENOrdering Facility: [facility] Address: [address] [address] Result Comment: Sugar mated Glomerular Filtration Rate [...] actual GFR. Performed By: #### 2 4323-8 ####[facility] LABCLIA [id number] [place] [address] Glucose [Mass/Vol] 135 mg/dL High 74-99 [facility] Comment on above: Order Comment: Speci men Type: BLOOD SPECIMENOrdering Facility: [facility] Address: [address] [place] [address] Result Comment: The [place] Diabetes Association (ADA) provides guidance for cutoff [...] Standards of Medical Care in Diabetes 2016, [place] Diabetes Association. Diabetes Care. 2016.39(Suppl 1). Performed By: #### 2 4323-8 ####[facility] LABCLIA [id number] [place] [address] Potassium [Moles/Vol] 3.9 mmol/L Normal 3.7-5.1 [facility] Comment on above: Order Comment: Speci men Type: BLOOD SPECIMENOrdering Facility: [facility] Address: [address] [place] [address] Performed By: #### 2 4323-8 ####[facility] LABCLIA [id number] [place] [address] Protein [Mass/Vol] 7.4 g/dL Normal 6.3-8.0 [facility] Comment on above: Order Comment: Speci men Type: BLOOD SPECIMENOrdering Facility: [facility] Address: [address] [place] [address] Performed By: #### 2 4323-8 ####[facility] LABCLIA [id number] [place] [address] Sodium [Moles/Vol] 141 mmol/L Normal 136-144 [facility] Comment on above: Order Comment: Speci men Type: BLOOD SPECIMENOrdering Facility: [facility] Address: [address] [place] [address] Performed By: #### 2 4323-8 ####[facility] LABCLIA [id number] [place] [address] Urea nitrogen [Mass/Vol] 38 mg/dL High 7-21 [facility] Comment on above: Order Comment: Speci men Type: BLOOD SPECIMENOrdering Facility: [facility] Address: [address] [place] [address] Performed By: #### 2 4323-8 ####[facility] LABCLIA [id number] [place] [address] Office Visiton 04-01-2023 Follow-up visit [id number] Barros,Wayne barrientosdomenica Lazara 1945 F Date Provider Department Center 04/01/2023 GISSELL WANG [facility] Family History Problem Relation Age of Onset Coronary artery disease Mother Coronary artery disease Father Coronary artery disease Sister Coronary artery disease Brother Family Status - Relation Status Age at Mother Father Sister Brother Level of Service:53684 [place] OFFICE/OUTPATIENT ESTABLISHED MOD MDM 30-39 MIN Reason for Visit and Comments: Atrial Fibrillation [80] Hypertension [736357] [facility] 36on 03-27-2023 36 Called and discussed . Thanks. [facility] Office Visiton 01-14-2023 Follow-up visit [id number] Wayne Barros A 1945 F Date Provider Department Center 01/14/2023 [id number] RODRÍGUEZ KASH[facility] Family History Problem Relation Age of Onset Coronary artery disease Mother Coronary artery disease Father Coronary artery disease Sister Coronary artery disease Brother Family Status - Relation Status Age at Mother Father Sister Brother Level of Service:10180 [place] OFFICE/OUTPATIENT ESTABLISHED MOD MDM 30-39 MIN Reason for Visit and Comments: Atrial Fibrillation [80] Congestive Heart Failure [127] Hypertension [685381] Valve Disorder [3372] [facility] Office Visiton 09-03-2022 Follow-up visit [id number] Wayne Braros A 1945 F Date Provider Department Center 09/03/2022 RAHEEL LEÓN KASHIF [facility] Family History Problem Relation Age of Onset Coronary artery disease Mother Coronary artery disease Father Coronary artery disease Sister Coronary artery disease Brother Family Status - Relation Status Age at Mother Father Sister Brother Level of Service:11513 [place] OFFICE/OUTPATIENT ESTABLISHED MOD MDM 30-39 MIN Reason for Visit and Comments: Hospital Follow-up [832] [facility] BNPon 08-24-2022 Natriuretic peptide B (Bld) [Mass/Vol] 1296.0 pg/mL Normal <=1,800.0 [facility] Comment on above: Performed By: #### B MEDICAL OFFICE ASSISTANT, CMP ####[facility] [address] [address]DrOtto Reis CBC W MANUAL DIFFon 08-24-20 22 ATYPICAL LYMPH # Normal [facility] Comment on above: Performed By: #### C BCMAN ####[facility] [address] [address]Dr. Swathi Reis ATYPICAL LYMPH % Normal [facility] Comment on above: Performed By: #### C BCMAN ####[facility] [address] [address]Dr. Yitracy Reis BAND # 0.1 103/ul Normal 0.0-0.3 [facility] Comment on above: Performed By: #### C BCMAN ####[facility] [address] [address]Dr. Yilan Reis BAND % 1 % Normal 0-5 [facility] Comment on above: Performed By: #### C BCMAN ####[facility] [address] [address]Dr. Swathi Reis BASOM # 0.00 103/ul Normal 0.00-0.10 [facility] Comment on above: Performed By: #### C BCYUN ####[facility] [address] [place], [place] [address]Dr. Swathi Reis BASOM % 0.0 % Critically low 0.2-2.0 [facility] Comment on above: Performed By: #### C BCYUN ####[facility] [address] [address]Dr. Yitracy Reis BLAST # Normal [facility] Comment on above: Performed By: #### C NGA ####[facility] [address] [address]Dr. Swathi Reis BLAST % Normal [facility] Comment on above: Performed By: #### C BCYUN ####[facility] [address] [address]Dr. Swathi Reis CORRECTED WBC Normal 4.0-11.[address] [facility] Comment on above: Performed By: #### C BCMAN ####[facility] [address] [place], [place] [address]Dr. Swathi Reis EOS # 0.39 103/ul Normal 0.00-0.70 [facility] Comment on above: Performed By: #### C BCYUN ####[facility] [address] [place], [place] [address]Dr. Swathi Reis EOS% 3.0 % Normal 0.9-7.0 [facility] Comment on above: Performed By: #### C NGA ####[facility] [address] [address]Dr. Swathi Reis HCT 32.6 % Critically low 36.0-48.0 [facility] Comment on above: Performed By: #### C NGA ####[facility] [address] [address]Dr. Swathi Reis HGB 10.6 g/dl Critically low 12.0-16.0 [facility] Comment on above: Performed By: #### C NGA ####[facility] [address] [address]Dr. Swathi Reis HYPOCHROMASIA SLIGHT Normal [facility] Comment on above: Performed By: #### C NGA ####[facility] [address] [address]Dr. Swathi Reis LYMPHM # 1.04 103/ul Critically low 1.20-3.80 [facility] Comment on above: Performed By: #### C NGA ####[facility] [address] [address]Dr. Swathi Reis LYMPHM% 8.0 % Critically low 20.5-60.0 [facility] Comment on above: Performed By: #### C NGA ####[facility] [address] [address]Dr. Swathi Reis MCH 29.2 pg Normal 26.7-34.0 [facility] Comment on above: Performed By: #### C NGA ####[facility] [address] [address]Dr. Swathi Reis MCHC 32.5 g/dl Normal 29.9-35.2 [facility] Comment on above: Performed By: #### C NGA ####[facility] [address] [address]Dr. Swathi Reis MCV 89.8 fL Normal 81.0-99.0 [facility] Comment on above: Performed By: #### C NGA ####[facility] [address] [address]Dr. Swathi Reis METAMYELOCYTE # Normal [facility] Comment on above: Performed By: #### C NGA ####[facility] [address] [address]Dr. Swathi Reis METAMYELOCYTE % Normal [facility] Comment on above: Performed By: #### C NGA ####[facility] [address] [address]Dr. Swathi Reis MONOM# 1.17 103/ul Critically high 0.30-0.80 [facility] Comment on above: Performed By: #### C NGA ####[facility] [address] [place], [place] [address]Dr. Swathi Reis MONOM% 9.0 % Normal 1.7-12.0 [facility] Comment on above: Performed By: #### C NGA ####[facility] [address] [place], [place] [address]Dr. Swathi Chato MPV 10.0 fL Normal 9.5-13.5 [facility] Comment on above: Performed By: #### C NGA ####[facility] [address] [place], [place] [address]Dr. Swathi Reis MYELOCYTE # Normal [facility] Comment on above: Performed By: #### C NGA ####[facility] [address] [place], [place] [address]Dr. Swathi Reis MYELOCYTE % Normal [facility] Comment on above: Performed By: #### C NGA ####[facility] [address] [place], [place] [address]Dr. Swathi Reis NRBC Normal [facility] Comment on above: Performed By: #### C NGA ####[facility] [address] [address]Dr. Swathi Reis PLT 353 103/ul Normal 150-450 [facility] Comment on above: Performed By: #### C NGA ####[facility] Yxgtqupsav1460 [place], [place] [address]Sk. Swathi Reis RBC 3.63 106/ul Critically low 4.20-5.40 [facility] Comment on above: Performed By: #### C NGA ####[facility] Umlsswloxt2625 [place], [place] [address]Vg. Swathi Reis RDW 13.6 % Normal 11.0-15.0 [facility] Comment on above: Performed By: #### C NGA ####[facility] Gtdbxeripr0288 [place], [place] [address]Yg. Swathi Reis SEG # 10.27 103/ul Critically high 1.40-6.50 [facility] Comment on above: Performed By: #### C NGA ####[facility] Jqgrxdrqdz32[address] [place] [id number]. Swathi Reis SEG % 79.0 % Critically high 43.0-75.0 [facility] Comment on above: Performed By: #### C NGA ####[facility] Cgrufnrejr9404 [place], [place] [address]Yy. Swathi Reis WBC 13.0 103/ul Critically high 4.0-11.0 [facility] Comment on above: Performed By: #### C NGA ####[facility] Gapwnktbut1338 [place] [id number]. Swathi Chato DIGOXINon 08-24-2022 DIG 1.8 ng/mL Normal 0.9-2.0 [facility] Comment on above: Performed By: #### D IG ####[facility] O[address]vyzozkg[address] [place] [id number]. Swathi Reis PROF 14(COMP METB)on 022 Albumin [Mass/Vol] 2.4 g/dL Critically low 3.4-5.0 [facility] Comment on above: Performed By: #### B MEDICAL OFFICE ASSISTANT, CMP ####[facility] Drkbnwjitx8302 [place] [id number]. Swathi Chato Albumin/Globulin [Mass ratio] 0.5 {ratio} Normal [facility] Comment on above: Performed By: #### B MEDICAL OFFICE ASSISTANT, CMP ####[facility] Lkmdlfsqau39[address] [place] [id number]. Swathi Reis ALP [Catalytic activity/Vol] 93 U/L Normal 46-116 [facility] Comment on above: Performed By: #### B MEDICAL OFFICE ASSISTANT, CMP ####[facility] Jqicncpxzr8301 [place] [id number]. Swathi Reis ALT [Catalytic activity/Vol] 8 U/L Critically low 14-59 [facility] Comment on above: Performed By: #### B MEDICAL OFFICE ASSISTANT, CMP ####[facility] Flyzktntib2171 [place] [id number]. Swathi Reis Anion gap [Moles/Vol] 11.2 mmol/L Normal [facility] Comment on above: Performed By: #### B MEDICAL OFFICE ASSISTANT, CMP ####[facility] Ywnbzidiem[address] [place], [place] [address]Dr. Swathi Reis AST [Catalytic activity/Vol] 14 U/L Critically low 15-37 [facility] Comment on above: Performed By: #### B MEDICAL OFFICE ASSISTANT, CMP ####[facility] Icqtvjhikd9788 [place] [id number]. Swathi Chato Bilirubin [Mass/Vol] 0.4 mg/dL Normal 0.2-1.0 [facility] Comment on above: Performed By: #### B MEDICAL OFFICE ASSISTANT, CMP ####[facility] Zrsrfsjfku76[address] [place] [address]Dr. Swathi Chato Calcium [Mass/Vol] 9.4 mg/dL Normal 8.5-10.1 [facility] Comment on above: Performed By: #### B MEDICAL OFFICE ASSISTANT, CMP ####[facility] Pnoxmnpidd67[address] [place] [id number]. Swathi Reis Chloride [Moles/Vol] 101 mmol/L Normal 98-107 [facility] Comment on above: Performed By: #### B MEDICAL OFFICE ASSISTANT, CMP ####[facility] Nkzfpxrbcb0541 [place] [address]Dr. Swathi Reis CO2 [Moles/Vol] 31.0 mmol/L Normal 21.0-32.0 [facility] Comment on above: Performed By: #### B MEDICAL OFFICE ASSISTANT, CMP ####[facility] Zwgqqfcchq7777 [place] [address]Dr. Swathi Reis Creatinine [Mass/Vol] 1.49 mg/dL Critically high 0.55-1.02 [facility] Comment on above: Performed By: #### B MEDICAL OFFICE ASSISTANT, CMP ####[facility] Msnfloemyw4953 [place] [address]Dr. Swathi Reis EGFR-AF RWANDAN 41 mL/min/1.73m2 Critically low >=60 [facility] Comment on above: Performed By: #### B MEDICAL OFFICE ASSISTANT, CMP ####[facility] Irzfocrpmz[address] [place], [place] [address]Dr. Swathi Reis EGFR-NON AF RWANDAN 34 mL/min/1.73m2 Critically low >=60 [facility] Comment on above: Performed By: #### B MEDICAL OFFICE ASSISTANT, CMP ####[facility] Yjimybwccr59[address] [place], [place] [address]Dr. Swathi Reis Globulin (S) [Mass/Vol] 4.8 g/dL Normal [facility] Comment on above: Performed By: #### B MEDICAL OFFICE ASSISTANT, CMP ####[facility] Kkyeyazxea000[address] [place], [place] [address]Dr. Swathi Reis Glucose [Mass/Vol] 153 mg/dL Critically high 74-106 [facility] Comment on above: Performed By: #### B MEDICAL OFFICE ASSISTANT, CMP ####[facility] Wvxfeaqrlj1064[address] [place], [place] [address]Dr. Swathi Reis Potassium [Moles/Vol] 4.2 mmol/L Normal 3.5-5.1 [facility] Comment on above: Performed By: #### B MEDICAL OFFICE ASSISTANT, CMP ####[facility] Oqgurfvfvc20[address] [place], [place] [address]Dr. Swathi Reis Protein [Mass/Vol] 7.2 g/dL Normal 6.4-8.2 [facility] Comment on above: Performed By: #### B MEDICAL OFFICE ASSISTANT, CMP ####[facility] Pwydyyuhjv[address] [place], [place] [address]Dr. Swathi Reis Sodium [Moles/Vol] 139 mmol/L Normal 136-145 [facility] Comment on above: Performed By: #### B MEDICAL OFFICE ASSISTANT, CMP ####[facility] Donapsgyqt025[address] [place], [place] [address]Dr. Swathi Reis Urea nitrogen [Mass/Vol] 22.0 mg/dL Critically high 7.0-18.0 [facility] Comment on above: Performed By: #### B MEDICAL OFFICE ASSISTANT, CMP ####[facility] Rdblyognwl259[address] [place], [place] [address]Dr. Swathi Reis Urea nitrogen/Creatinine [Mass ratio] 14.8 mg/mg Normal [facility] Comment on above: Performed By: #### B MEDICAL OFFICE ASSISTANT, CMP ####[facility] Dzsbzxcgxp[address] [place], [place] [address]Dr. Swathi Reis BNPon 08-23-2022 Natriuretic peptide B (Bld) [Mass/Vol] 1755.0 pg/mL Normal <=1,800.0 [facility] Comment on above: Performed By: #### B MEDICAL OFFICE ASSISTANT, CMP ####[facility] Yohvfdlzbs[address] [place], [place] [address]Dr. Swathi Reis CBC AUTO DIFFon 08-23-2022 BASO # 0.1 103/ul Normal 0.0-0.1 [facility] Comment on above: Performed By: #### C BC ####[facility] Iybzdyovra[address] [place], [place] [address]Dr. Swathi Chato Basophils/100 WBC (Bld) 0.7 % Normal 0.2-2.0 [facility] Comment on above: Performed By: #### C BC ####[facility] Axuklbuynp[address] [place], [place] [address]Dr. Swathi Chato EO # 0.2 103/ul Normal 0.0-0.7 [facility] Comment on above: Performed By: #### C BC ####[facility] Hygqzcfyvr[address] [place], [place] [address]Dr. Swathi Chato Eosinophils/100 WBC (Bld) 2.2 % Normal 0.9-7.0 [facility] Comment on above: Performed By: #### C BC ####[facility] Kjtonuhfwv9538 [place] [address]Dr. Swathi Reis Erythrocyte distribution width (RBC) [Ratio] 13.6 % Normal 11.0-15.0 [facility] Comment on above: Performed By: #### C BC ####[facility] Cblqckqobk3277 [place] [address]Dr. Swathi Reis Hematocrit (Bld) [Volume fraction] 33.1 % Critically low 36.0-48.0 [facility] Comment on above: Performed By: #### C BC ####[facility] Zzomsanqfu24[address] [place], [place] [address]Dr. Swathi Reis Hemoglobin (Bld) [Mass/Vol] 10.6 g/dL Critically low 12.0-16.0 [facility] Comment on above: Performed By: #### C BC ####[facility] Ekermfhsuw[address] [place], [place] [address]Dr. Swathi Reis IG # 0.12 10e3/ul Critically high 0.00-0.03 [facility] Comment on above: Performed By: #### C BC ####[facility] Jfttgopina227[address] [place], [place] [address]Dr. Swathi Reis IG % 1.1 % Critically high 0.0-0.5 [facility] Comment on above: Performed By: #### C BC ####[facility] Ixwtezmzpc[address] [place], [place] [address]Dr. Swathi Reis LYMPH # 1.6 103/ul Normal 1.2-3.8 [facility] Comment on above: Performed By: #### C BC ####[facility] Tepenfkbxv114[address] [place], [place] [address]Dr. Swathi Reis Lymphocytes/100 WBC (Bld) 14.6 % Critically low 20.5-60.0 [facility] Comment on above: Performed By: #### C BC ####[facility] Wqcbevbklt[address] [place], [place] [address]Dr. Swathi Reis MANUAL DIFF REQ NO Normal [facility] Comment on above: Performed By: #### C BC ####[facility] Pmseyeiqbu5410 [place] [id number]. Swathi Reis MCH (RBC) [Entitic mass] 29.0 pg Normal 26.7-34.0 [facility] Comment on above: Performed By: #### C BC ####[facility] Hdjalvhhqh2473 [place] [address]Dr. Swathi Reis MCHC (RBC) [Mass/Vol] 32.0 g/dL Normal 29.9-35.2 [facility] Comment on above: Performed By: #### C BC ####[facility] Ccyjlypbhe0610 [place] [address]Dr. Swathi Chato MCV (RBC) [Entitic vol] 90.4 fL Normal 81.0-99.0 [facility] Comment on above: Performed By: #### C BC ####[facility] Izkmpjztel[address] [place], [place] [address]DrOtto Wylietracy Chato MONO # 1.4 103/ul Critically high 0.3-0.8 [facility] Comment on above: Performed By: #### C BC ####[facility] Gjocyielhz[address] [place], [place] [address]DrOtto Swathi Chato Monocytes/100 WBC (Bld) 12.8 % Critically high 1.7-12.0 [facility] Comment on above: Performed By: #### C BC ####[facility] Svozvnhyum[address] [place], [place] [address]DrOtto Swathi Reis NEUT # 7.5 103/ul Critically high 1.4-6.5 [facility] Comment on above: Performed By: #### C BC ####[facility] Mxodpwuhdl9[address] [place], [place] [address]DrOtto Swathi Chato Neutrophils/100 WBC (Bld) 68.6 % Normal 43.0-75.0 [facility] Comment on above: Performed By: #### C BC ####[facility] Rudjcv[address]ch[address] [place], [place] [id number] Inessatracy Reis Platelet mean volume (Bld) [Entitic vol] 10.3 fL Normal 9.5-13.5 [facility] Comment on above: Performed By: #### C BC ####[facility] Ajzwedkilb1826 [place] [id number]. Swathi Reis PLT 387 103/ul Normal 150-450 [facility] Comment on above: Performed By: #### C BC ####[facility] Oqhijukuee8964 [place] [address]Dr. Swathi Reis RBC 3.66 106/ul Critically low 4.20-5.40 [facility] Comment on above: Performed By: #### C BC ####[facility] Kgoujatjjv6383 [place] [address]Dr. Swathi Reis WBC 11.0 103/ul Normal 4.0-11.0 [facility] Comment on above: Performed By: #### C BC ####[facility] Esnhdwcdwf7653 [place] [id number]. Swathi Chato DIGOXINon 08-23-2022 DIG 1.6 ng/mL Normal 0.9-2.0 [facility] Comment on above: Performed By: #### D IG ####[facility] Cahrkoeqkn5157 [place] [id number]. Swathi Reis POINT OF CARE GLUCOSEon Glucose [Mass/Vol] 167 mg/dL Critically high 74-106 [facility] Comment on above: Performed By: #### P OCGLUC ####[facility] Jtyphjwsna2507 [place] [address]Dr. Swathi Chato Glucose [Mass/Vol] 114 mg/dL Critically high 74-106 [facility] Comment on above: Performed By: #### P OCGLUC ####[facility] Innrmyuhlk9155 [place] [address]Dr. Swathi Chato Glucose [Mass/Vol] 272 mg/dL Critically high 74-106 [facility] Comment on above: Performed By: #### P OCGLUC ####[facility] Doeitngytl5583 [place] [address]DrOtto Reis PROF 14(COMP METB)on 022 Albumin [Mass/Vol] 2.4 g/dL Critically low 3.4-5.0 Th [facility] Comment on above: Performed By: #### B MEDICAL OFFICE ASSISTANT, CMP ####[facility] Hkepwiodas5020 [place] [address]Dr. Swathi Reis Albumin/Globulin [Mass ratio] 0.5 {ratio} Normal [facility] Comment on above: Performed By: #### B MEDICAL OFFICE ASSISTANT, CMP ####[facility] Kzttryxfcq6534 [place] [address]Dr. Swathi Reis ALP [Catalytic activity/Vol] 104 U/L Normal 46-116 [facility] Comment on above: Performed By: #### B MEDICAL OFFICE ASSISTANT, CMP ####[facility] Qsahmrzfcs2234 [place] [address]Dr. Swathi Reis ALT [Catalytic activity/Vol] 7 U/L Critically low 14-59 [facility] Comment on above: Performed By: #### B MEDICAL OFFICE ASSISTANT, CMP ####[facility] Sixmvzihfs4445 [place] [address]Dr. Swathi Reis Anion gap [Moles/Vol] 11.1 mmol/L Normal [facility] Comment on above: Performed By: #### B MEDICAL OFFICE ASSISTANT, CMP ####[facility] Kzatvwtbgm133[address] [place], [place] [address]Dr. Swathi Reis AST [Catalytic activity/Vol] 19 U/L Normal 15-37 [facility] Comment on above: Performed By: #### B MEDICAL OFFICE ASSISTANT, CMP ####[facility] Emxdxhmsvi8290 [place] [address]Dr. Swathi Reis Bilirubin [Mass/Vol] 0.4 mg/dL Normal 0.2-1.0 [facility] Comment on above: Performed By: #### B MEDICAL OFFICE ASSISTANT, CMP ####[facility] Jrydoheqma[address] [place], [place] [address]Dr. Swathi Reis Calcium [Mass/Vol] 9.5 mg/dL Normal 8.5-10.1 [facility] Comment on above: Performed By: #### B MEDICAL OFFICE ASSISTANT, CMP ####[facility] Cnfcluxnzl[address] [place], [place] [address]Dr. Swathi Reis Chloride [Moles/Vol] 101 mmol/L Normal 98-107 [facility] Comment on above: Performed By: #### B MEDICAL OFFICE ASSISTANT, CMP ####[facility] Bvrpuqwjod[address] [place], [place] [address]Dr. Swathi Reis CO2 [Moles/Vol] 30.7 mmol/L Normal 21.0-32.0 [facility] Comment on above: Performed By: #### B MEDICAL OFFICE ASSISTANT, CMP ####[facility] Fgoqsogqxx723[address] [place], [place] [address]Dr. Swathi Reis Creatinine [Mass/Vol] 1.53 mg/dL Critically high 0.55-1.02 [facility] Comment on above: Performed By: #### B MEDICAL OFFICE ASSISTANT, CMP ####[facility] Bdsorbmola7[address] [place], [place] [address]Dr. Swathi Reis EGFR-AF RWANDAN 40 mL/min/1.73m2 Critically low >=60 [facility] Comment on above: Performed By: #### B MEDICAL OFFICE ASSISTANT, CMP ####[facility] Ttbsxzrpgd413[address] [place], [place] [address]Dr. Swathi Reis EGFR-NON AF RWANDAN 33 mL/min/1.73m2 Critically low >=60 [facility] Comment on above: Performed By: #### B MEDICAL OFFICE ASSISTANT, CMP ####[facility] Aazcdpjift33[address] [place], [place] [address]Dr. Swathi Reis Globulin (S) [Mass/Vol] 4.9 g/dL Normal [facility] Comment on above: Performed By: #### B MEDICAL OFFICE ASSISTANT, CMP ####[facility] Pgmlowhzyq[address] [place], [place] [address]Dr. Swathi Reis Glucose [Mass/Vol] 139 mg/dL Critically high 74-106 [facility] Comment on above: Performed By: #### B MEDICAL OFFICE ASSISTANT, CMP ####[facility] Hcvwdjosqb069[address] [place], [place] [address]Dr. Swathi Reis Potassium [Moles/Vol] 3.8 mmol/L Normal 3.5-5.1 [facility] Comment on above: Performed By: #### B MEDICAL OFFICE ASSISTANT, CMP ####[facility] Okbrkfqsor069[address] [place], [place] [address]Dr. Swathi Reis Protein [Mass/Vol] 7.3 g/dL Normal 6.4-8.2 [facility] Comment on above: Performed By: #### B MEDICAL OFFICE ASSISTANT, CMP ####[facility] Lbkeqwpmyg301[address] [place], [place] [address]Dr. Swathi Reis Sodium [Moles/Vol] 139 mmol/L Normal 136-145 [facility] Comment on above: Performed By: #### B MEDICAL OFFICE ASSISTANT, CMP ####[facility] Khitscutzv[address] [place], [place] [address]Dr. Swathi Chato Urea nitrogen [Mass/Vol] 26.0 mg/dL Critically high 7.0-18.0 [facility] Comment on above: Performed By: #### B MEDICAL OFFICE ASSISTANT, CMP ####[facility] Tadifznvjo[address] [place], [place] [address]Dr. Inessatracy Reis Urea nitrogen/Creatinine [Mass ratio] 17.0 mg/mg Normal [facility] Comment on above: Performed By: #### B MEDICAL OFFICE ASSISTANT, CMP ####[facility] Ohutdkduij[address] [place], [place] [address]Dr. Swathi Chato BNPon 08-22-2022 Natriuretic peptide B (Bld) [Mass/Vol] 3439.0 pg/mL Critically high <=1,800.0 [facility] Comment on above: Performed By: #### C MP, BNP ####[facility] Vnyjitqfmv[address] [place], [place] [address]Dr. Swathi Chato CBC AUTO DIFFon 08-22-2022 BASO # 0.1 103/ul Normal 0.0-0.1 [facility] Comment on above: Performed By: #### C BC ####[facility] Belkdxlcai[address] [place], [place] [address]Dr. Swathi Chato Basophils/100 WBC (Bld) 0.6 % Normal 0.2-2.0 [facility] Comment on above: Performed By: #### C BC ####[facility] Ggrsntaibp205[address] [place], [place] [address]Dr. Swathi Reis EO # 0.3 103/ul Normal 0.0-0.7 [facility] Comment on above: Performed By: #### C BC ####[facility] Dsfnmgbgoj4669 [place] [address]Dr. Swathi Reis Eosinophils/100 WBC (Bld) 2.1 % Normal 0.9-7.0 [facility] Comment on above: Performed By: #### C BC ####[facility] Qjnpnngldt864[address] [place], [place] [address]Dr. Swathi Reis Erythrocyte distribution width (RBC) [Ratio] 13.8 % Normal 11.0-15.0 [facility] Comment on above: Performed By: #### C BC ####[facility] Bqpjmhvgel74[address] [place], [place] [address]Dr. Swathi Reis Hematocrit (Bld) [Volume fraction] 31.9 % Critically low 36.0-48.0 [facility] Comment on above: Performed By: #### C BC ####[facility] Wkifnvdqjm935[address] [place], [place] [address]Dr. Swathi Reis Hemoglobin (Bld) [Mass/Vol] 10.2 g/dL Critically low 12.0-16.0 [facility] Comment on above: Performed By: #### C BC ####[facility] Nnydfoxdep[address] [place], [place] [address]Dr. Swathi Reis IG # 0.10 10e3/ul Critically high 0.00-0.03 [facility] Comment on above: Performed By: #### C BC ####[facility] Cptfdlaara[address] [place], [place] [address]Dr. Swathi Reis IG % 0.8 % Critically high 0.0-0.5 [facility] Comment on above: Performed By: #### C BC ####[facility] Xsbktsvmjk834[address] [place], [place] [address]Dr. Swathi Reis LYMPH # 1.2 103/ul Normal 1.2-3.8 [facility] Comment on above: Performed By: #### C BC ####[facility] Arjzjafnfu345[address] [place], [place] [address]Dr. Swathi Reis Lymphocytes/100 WBC (Bld) 9.6 % Critically low 20.5-60.0 [facility] Comment on above: Performed By: #### C BC ####[facility] Vmozdffofy[address] [place] [address]DrOtto Reis MANUAL DIFF REQ NO Normal [facility] Comment on above: Performed By: #### C BC ####[facility] Nowiiytzlx2810 [place] [address]Dr. Swathi Reis MCH (RBC) [Entitic mass] 28.7 pg Normal 26.7-34.0 [facility] Comment on above: Performed By: #### C BC ####[facility] Sfqvhpzcny356[address] [place], [place] [address]Dr. Swathi Reis MCHC (RBC) [Mass/Vol] 32.0 g/dL Normal 29.9-35.2 [facility] Comment on above: Performed By: #### C BC ####[facility] Ozabexicli[address] [place], [place] [address]DrOtto Reis MCV (RBC) [Entitic vol] 89.9 fL Normal 81.0-99.0 [facility] Comment on above: Performed By: #### C BC ####[facility] Lsmnalehhw8[address] [place], [place] [address]Dr. Swathi Reis MONO # 1.0 103/ul Critically high 0.3-0.8 [facility] Comment on above: Performed By: #### C BC ####[facility] Ihejcipuzz97[address] [place], [place] [address]DrOtto Reis Monocytes/100 WBC (Bld) 8.5 % Normal 1.7-12.0 [facility] Comment on above: Performed By: #### C BC ####[facility] Wjppznwpga[address] [place], [place] [address]DrOtto Reis NEUT # 9.6 103/ul Critically high 1.4-6.5 [facility] Comment on above: Performed By: #### C BC ####[facility] Yrjisvtzbz[address] [place], [place] [address]Dr. Swathi Reis Neutrophils/100 WBC (Bld) 78.4 % Critically high 43.0-75.0 [facility] Comment on above: Performed By: #### C BC ####[facility] Vofvkyscxv9246 [place] [address]Dr. Swathi Reis Platelet mean volume (Bld) [Entitic vol] 10.4 fL Normal 9.5-13.5 [facility] Comment on above: Performed By: #### C BC ####[facility] Rfizqpkicw7545 [place] [address]Dr. Swathi Reis PLT 338 103/ul Normal 150-450 [facility] Comment on above: Performed By: #### C BC ####[facility] Nqrkhtmmyw5408 [place] [address]Dr. Swathi Reis RBC 3.55 106/ul Critically low 4.20-5.40 [facility] Comment on above: Performed By: #### C BC ####[facility] Hnpmapmpsx[address] [place], [place] [address]Dr. Swathi Reis WBC 12.2 103/ul Critically high 4.0-11.0 [facility] Comment on above: Performed By: #### C BC ####[facility] Xbgkrixtas[address] [place], [place] [address]Dr. Swathi Reis DIGOXINon 08-22-2021 DIG 1.5 ng/mL Normal 0.9-2.0 [facility] Comment on above: Performed By: #### D IG ####[facility] Ouvswgziio[address] [place], [place] [address]Dr. Swathi Reis POINT OF CARE GLUCOSEon 07-26-2021 Glucose [Mass/Vol] 222 mg/dL Critically high 74-106 [facility] Comment on above: Performed By: #### P OCGLUC ####[facility] Wwhhnwkftd64[address] [place], [place] [address]Dr. Swathi Reis Glucose [Mass/Vol] 133 mg/dL Critically high 74-106 [facility] Comment on above: Performed By: #### P OCGLUC ####[facility] Ifrveycdxw0619 [place] [address]Dr. Swathi Reis Glucose [Mass/Vol] 299 mg/dL Critically high 74-106 [facility] Comment on above: Performed By: #### P OCGLUC ####[facility] Icxhjclurb[address] [place], [place] [address]Dr. Swathi Reis Glucose [Mass/Vol] 151 mg/dL Critically high 74-106 [facility] Comment on above: Performed By: #### P OCGLUC ####[facility] Uoafkkytqs[address] [place], [place] [address]Dr. Swathi Reis PROF 14(COMP METB)on 022 Albumin [Mass/Vol] 2.4 g/dL Critically low 3.4-5.0 [facility] Comment on above: Performed By: #### C MP, BNP ####[facility] Wlklxcickh[address] [place], [place] [address]Dr. Swathi Reis Albumin/Globulin [Mass ratio] 0.6 {ratio} Normal [facility] Comment on above: Performed By: #### C MP, BNP ####[facility] Orwdjywzmp76[address] [place], [place] [address]Dr. Swathi Reis ALP [Catalytic activity/Vol] 98 U/L Normal 46-116 [facility] Comment on above: Performed By: #### C MP, BNP ####[facility] Vxifkmmkex[address] [place], [place] [address]Dr. Swathi Reis ALT [Catalytic activity/Vol] 13 U/L Critically low 14-59 [facility] Comment on above: Performed By: #### C MP, BNP ####[facility] Pcmqzogavl[address] [place], [place] [address]Dr. Swathi Reis Anion gap [Moles/Vol] 12.4 mmol/L Normal [facility] Comment on above: Performed By: #### C MP, BNP ####[facility] Mqsuujovmo[address] [place], [place] [address]Dr. Swathi Reis AST [Catalytic activity/Vol] 23 U/L Normal 15-37 [facility] Comment on above: Performed By: #### C MP, BNP ####[facility] Numbszhsrg4[address] [place] [address]Dr. Swathi Reis Bilirubin [Mass/Vol] 0.6 mg/dL Normal 0.2-1.0 [facility] Comment on above: Performed By: #### C MP, BNP ####[facility] Lhnumbpwho[address] [place], [place] [address]Dr. Swathi Reis Calcium [Mass/Vol] 8.9 mg/dL Normal 8.5-10.1 [facility] Comment on above: Performed By: #### C MP, BNP ####[facility] Jtfinqzqlw03[address] [place], [place] [address]Dr. Swathi Reis Chloride [Moles/Vol] 100 mmol/L Normal 98-107 [facility] Comment on above: Performed By: #### C MP, BNP ####[facility] Qiyhmzwejq64[address] [place], [place] [address]Dr. Swathi Reis CO2 [Moles/Vol] 30.6 mmol/L Normal 21.0-32.0 [facility] Comment on above: Performed By: #### C MP, BNP ####[facility] Xxfxsucuth[address] [place], [place] [address]Dr. Swathi Reis Creatinine [Mass/Vol] 1.54 mg/dL Critically high 0.55-1.02 [facility] Comment on above: Performed By: #### C MP, BNP ####[facility] Oxvsdebefn36[address] [place], [place] [address]Dr. Swathi Reis EGFR-AF RWANDAN 40 mL/min/1.73m2 Critically low >=60 [facility] Comment on above: Performed By: #### C MP, BNP ####[facility] Gpfcfowxnt255[address] [place], [place] [address]Dr. Swathi Reis EGFR-NON AF RWANDAN 33 mL/min/1.73m2 Critically low >=60 [facility] Comment on above: Performed By: #### C MP, BNP ####[facility] Elysebtxcq767[address] [place], [place] [address]Dr. Swathi Reis Globulin (S) [Mass/Vol] 3.9 g/dL Normal [facility] Comment on above: Performed By: #### C MP, BNP ####[facility] Kxwcswnkgo25[address] [place] [address]Dr. Swathi Reis Glucose [Mass/Vol] 143 mg/dL Critically high 74-106 [facility] Comment on above: Performed By: #### C MP, BNP ####[facility] Aefrtgxslp5974 [place] [address]Dr. Swathi Reis Potassium [Moles/Vol] 4.0 mmol/L Normal 3.5-5.1 [facility] Comment on above: Performed By: #### C MP, BNP ####[facility] Qbfndcqvam7595 [place] [address]Dr. Swathi Reis Protein [Mass/Vol] 6.3 g/dL Critically low 6.4-8.2 [facility] Comment on above: Performed By: #### C MP, BNP ####[facility] Ypsmsbosxx1985[address] [place], [place] [address]Dr. Swathi Reis Sodium [Moles/Vol] 139 mmol/L Normal 136-145 [facility] Comment on above: Performed By: #### C MP, BNP ####[facility] Vinwnfulgj812[address] [place], [place] [address]Dr. Swathi Reis Urea nitrogen [Mass/Vol] 27.0 mg/dL Critically high 7.0-18.0 [facility] Comment on above: Performed By: #### C MP, BNP ####[facility] Artbztxiti050[address] [place], [place] [address]Dr. Swathi Reis Urea nitrogen/Creatinine [Mass ratio] 17.5 mg/mg Normal [facility] Comment on above: Performed By: #### C MP, BNP ####[facility] Lckvrlujag0187 [place] [address]Dr. Swathi Reis VANCOMYCIN TROUGHon 30-20 22 VANCOMYCIN TROUGH 13.2 ug/ml Normal 5.0-20.0 [facility] Comment on above: Performed By: #### V ANCT ####[facility] Nvmomyqgif1665[address] [place], [place] [address]Dr. Swathi Reis XR CHEST 2 Von 11-30-2022 XR CHEST 2 V Normal [facility] BNPon 08-21-2022 Natriuretic peptide B (Bld) [Mass/Vol] 3683.0 pg/mL Critically high <=1,800.0 [facility] Comment on above: Performed By: #### C MP, BNP ####[facility] Jbevjozpjy54[address] [place], [place] [address]DrOtto Reis CBC AUTO DIFFon 08-21-2022 BASO # 0.1 103/ul Normal 0.0-0.1 [facility] Comment on above: Performed By: #### C BC ####[facility] Cgjuaidsht538[address] [place], [place] [address]DrOtto Reis Basophils/100 WBC (Bld) 0.4 % Normal 0.2-2.0 [facility] Comment on above: Performed By: #### C BC ####[facility] Wjafoysljs025[address] [place], [place] [address]DrOtto Reis EO # 0.2 103/ul Normal 0.0-0.7 [facility] Comment on above: Performed By: #### C BC ####[facility] Gdrxqkyhqz9980[address] [place], [place] [address]Dr. Swathi Reis Eosinophils/100 WBC (Bld) 1.8 % Normal 0.9-7.0 [facility] Comment on above: Performed By: #### C BC ####[facility] Wuqyjtrrli735[address] [place], [place] [address]DrOtto Reis Erythrocyte distribution width (RBC) [Ratio] 14.4 % Normal 11.0-15.0 [facility] Comment on above: Performed By: #### C BC ####[facility] Xrjseikbfd917[address] [place], [place] [address]DrOtto Reis Hematocrit (Bld) [Volume fraction] 33.5 % Critically low 36.0-48.0 [facility] Comment on above: Performed By: #### C BC ####[facility] Lncyshsiti2901[address] [place], [place] [address]DrOtto Reis Hemoglobin (Bld) [Mass/Vol] 10.8 g/dL Critically low 12.0-16.0 [facility] Comment on above: Performed By: #### C BC ####[facility] Euydkxidwg3544 [place] [address]DrOtto Reis IG # 0.06 10e3/ul Critically high 0.00-0.03 [facility] Comment on above: Performed By: #### C BC ####[facility] Ridyqnausl7854 [place] [address]DrOtto Reis IG % 0.5 % Normal 0.0-0.5 [facility] Comment on above: Performed By: #### C BC ####[facility] Erppbqkzbj7814 [place] [address]DrOtto Reis LYMPH # 0.9 103/ul Critically low 1.2-3.8 [facility] Comment on above: Performed By: #### C BC ####[facility] Rwchoeqrml5519 [place] [address]DrOtto Reis Lymphocytes/100 WBC (Bld) 7.2 % Critically low 20.5-60.0 [facility] Comment on above: Performed By: #### C BC ####[facility] Svxcnrdsmt1083 [place] [address]DrOtto Reis MANUAL DIFF REQ NO Normal [facility] Comment on above: Performed By: #### C BC ####[facility] Skwgysikyv8043 [place] [address]DrOtto Reis MCH (RBC) [Entitic mass] 29.0 pg Normal 26.7-34.0 [facility] Comment on above: Performed By: #### C BC ####[facility] Fbtfpkjzls5565 [place] [address]DrOtto Reis MCHC (RBC) [Mass/Vol] 32.2 g/dL Normal 29.9-35.2 [facility] Comment on above: Performed By: #### C BC ####[facility] Mvgfhjuypj2994 [place] [address]DrOtto eRis MCV (RBC) [Entitic vol] 90.1 fL Normal 81.0-99.0 [facility] Comment on above: Performed By: #### C BC ####[facility] Vqzxbuqvpp5233 [place] [address]DrOtto Swathi Reis MONO # 0.8 103/ul Normal 0.3-0.8 [facility] Comment on above: Performed By: #### C BC ####[facility] Oeohxzpgdu4217 [place] [address]DrOtto Reis Monocytes/100 WBC (Bld) 6.3 % Normal 1.7-12.0 [facility] Comment on above: Performed By: #### C BC ####[facility] Dtiwxlswab6869[address] [place], [place] [address]Dr. Inessatracy Reis NEUT # 10.7 103/ul Critically high 1.4-6.5 [facility] Comment on above: Performed By: #### C BC ####[facility] Hzsfddnebg9317[address] [place], [place] [address]Dr. Swathi Reis Neutrophils/100 WBC (Bld) 83.8 % Critically high 43.0-75.0 [facility] Comment on above: Performed By: #### C BC ####[facility] Dslcgclnag69225[address] [place], [place] [address]DrOtto Inessatracy Reis Platelet mean volume (Bld) [Entitic vol] 10.7 fL Normal 9.5-13.5 [facility] Comment on above: Performed By: #### C BC ####[facility] Awgyujrvhn5578 [place] [address]Dr. Swathi Reis PLT 324 103/ul Normal 150-450 [facility] Comment on above: Performed By: #### C BC ####[facility] Cpuqjruogz4485 [place] [id number] Reis RBC 3.72 106/ul Critically low 4.20-5.40 [facility] Comment on above: Performed By: #### C BC ####[facility] Uyewktmmtd2188 [place] [address]DrOtto Reis WBC 12.8 103/ul Critically high 4.0-11.0 [facility] Comment on above: Performed By: #### C BC ####[facility] Ywltvbigmw2097 [place] [address]Dr. Swathi Reis DIGOXINon 08-21-2022 DIG 1.3 ng/mL Normal 0.9-2.0 [facility] Comment on above: Performed By: #### D IG ####[facility] Znfayduylm9458 [place] [address]Dr. Swathi Reis POINT OF CARE GLUCOSEon 07-25 Glucose [Mass/Vol] 129 mg/dL Critically high 74-106 [facility] Comment on above: Performed By: #### P OCGLUC ####[facility] Ewbnvygakw266[address] [place], [place] [address]Dr. Swathi Reis Glucose [Mass/Vol] 145 mg/dL Critically high 74-106 [facility] Comment on above: Performed By: #### P OCGLUC ####[facility] Ynebdxisga1528[address] [place], [place] [address]Dr. Swathi Reis Glucose [Mass/Vol] 366 mg/dL Critically high 74-106 [facility] Comment on above: Performed By: #### P OCGLUC ####[facility] Uotjkalrgu1705[address] [place], [place] [address]Dr. Swathi Reis Glucose [Mass/Vol] 149 mg/dL Critically high 74-106 [facility] Comment on above: Performed By: #### P OCGLUC ####[facility] Numnzcbwdm9564[address] [place], [place] [address]Dr. Swathi Reis PROF 14(COMP METB)on 022 Albumin [Mass/Vol] 2.4 g/dL Critically low 3.4-5.0 [facility] Comment on above: Performed By: #### C MP, BNP ####[facility] Tkwaxdpigz9345 [place] [address]Dr. Swathi Reis Albumin/Globulin [Mass ratio] 0.5 {ratio} Normal [facility] Comment on above: Performed By: #### C MP, BNP ####[facility] Ogqvkfgsan8349 [place] [address]Dr. Swathi Reis ALP [Catalytic activity/Vol] 93 U/L Normal 46-116 [facility] Comment on above: Performed By: #### C MP, BNP ####[facility] Naykepfhsr988[address] [place], [place] [address]Dr. Swathi Reis ALT [Catalytic activity/Vol] 11 U/L Critically low 14-59 [facility] Comment on above: Performed By: #### C MP, BNP ####[facility] Fwpzixavas404[address] [place], [place] [address]Dr. Swathi Reis Anion gap [Moles/Vol] 9.8 mmol/L Normal [facility] Comment on above: Performed By: #### C MP, BNP ####[facility] Owjqmsubzy401[address] [place], [place] [address]Dr. Swathi Reis AST [Catalytic activity/Vol] 14 U/L Critically low 15-37 [facility] Comment on above: Performed By: #### C MP, BNP ####[facility] Bswfwirwtx238[address] [place], [place] [address]Dr. Swathi Reis Bilirubin [Mass/Vol] 0.6 mg/dL Normal 0.2-1.0 [facility] Comment on above: Performed By: #### C MP, BNP ####[facility] Wppatwgoll723[address] [place], [place] [address]Dr. Swathi Reis Calcium [Mass/Vol] 9.4 mg/dL Normal 8.5-10.1 [facility] Comment on above: Performed By: #### C MP, BNP ####[facility] Uujpzhzhqv904[address] [place], [place] [address]Dr. Swathi Reis Chloride [Moles/Vol] 102 mmol/L Normal 98-107 [facility] Comment on above: Performed By: #### C MP, BNP ####[facility] Xpfmwhauyv3510[address] [place], [place] [address]Dr. Swathi Reis CO2 [Moles/Vol] 33.4 mmol/L Critically high 21.0-32.0 [facility] Comment on above: Performed By: #### C MP, BNP ####[facility] Yrmxfjcifm7136 [place] [address]Dr. Swathi Reis Creatinine [Mass/Vol] 1.79 mg/dL Critically high 0.55-1.02 [facility] Comment on above: Performed By: #### C MP, BNP ####[facility] Pmrxnzxsvu390[address] [place], [place] [address]Dr. Swathi Reis EGFR-AF RWANDAN 33 mL/min/1.73m2 Critically low >=60 [facility] Comment on above: Performed By: #### C MP, BNP ####[facility] Xoubvlbzqu6000[address] [place], [place] [address]Dr. Swathi Reis EGFR-NON AF RWANDAN 27 mL/min/1.73m2 Critically low >=60 [facility] Comment on above: Performed By: #### C MP, BNP ####[facility] Dmvhbfplqc512[address] [place], [place] [address]Dr. Swathi Reis Globulin (S) [Mass/Vol] 4.9 g/dL Normal [facility] Comment on above: Performed By: #### C MP, BNP ####[facility] Qxyuvjsddl424[address] [place], [place] [address]Dr. Swathi Reis Glucose [Mass/Vol] 121 mg/dL Critically high 74-106 [facility] Comment on above: Performed By: #### C MP, BNP ####[facility] Dqbibnurmj9539[address] [place], [place] [address]Dr. Swathi Reis Potassium [Moles/Vol] 3.2 mmol/L Critically low 3.5-5.1 [facility] Comment on above: Performed By: #### C MP, BNP ####[facility] Smfqdxlkbr076[address] [place], [place] [address]Dr. Swathi Reis Protein [Mass/Vol] 7.3 g/dL Normal 6.4-8.2 [facility] Comment on above: Performed By: #### C MP, BNP ####[facility] Hwaeyvhuls112[address] [place], [place] [address]Dr. Swathi Reis Sodium [Moles/Vol] 142 mmol/L Normal 136-145 [facility] Comment on above: Performed By: #### C MP, BNP ####[facility] Bmjhrktnqn460[address] [place], [place] [address]Dr. Swathi Chato Urea nitrogen [Mass/Vol] 32.0 mg/dL Critically high 7.0-18.0 [facility] Comment on above: Performed By: #### C MP, BNP ####[facility] Kvfiwrzjsc8613[address] [place], [place] [address]Dr. Swathi Reis Urea nitrogen/Creatinine [Mass ratio] 17.9 mg/mg Normal [facility] Comment on above: Performed By: #### C MP, BNP ####[facility] Lefoocnbdq778[address] [place], [place] [address]Dr. Swathi Chato BNPon 08-20-2022 Natriuretic peptide B (Bld) [Mass/Vol] 7302.0 pg/mL Critically high <=1,800.0 [facility] Comment on above: Performed By: #### C MP, BNP ####[facility] Apxfghzxug5812[address] [place], [place] [address]Dr. Inessatracy Chato C. DIFF PCRon 08-20-2022 C. DIFFICILE PCR Positive Critically abnormal NEGATIVE [facility] Comment on above: Performed By: #### C DIFPOC ####[facility] Lqqwyucibf49[address] [place], [place] [address]Dr. Swathi Chato CBC AUTO DIFFon 08-20-2022 BASO # 0.1 103/ul Normal 0.0-0.1 [facility] Comment on above: Performed By: #### C BC ####[facility] Zvxjpdpgrg8[address] [place], [place] [address]Dr. Swathi Reis Basophils/100 WBC (Bld) 0.5 % Normal 0.2-2.0 [facility] Comment on above: Performed By: #### C BC ####[facility] Rxdbdpivar1827[address] [place], [place] [address]Dr. Swathi Reis EO # 0.1 103/ul Normal 0.0-0.7 [facility] Comment on above: Performed By: #### C BC ####[facility] Sucolaercw[address] [place], [place] [address]Dr. Swathi Reis Eosinophils/100 WBC (Bld) 0.3 % Critically low 0.9-7.0 [facility] Comment on above: Performed By: #### C BC ####[facility] Bgrpmpghpo4[address] [place] [address]Dr. Swathi Reis Erythrocyte distribution width (RBC) [Ratio] 14.5 % Normal 11.0-15.0 [facility] Comment on above: Performed By: #### C BC ####[facility] Qoidmmkhkf2180 [place] [address]Dr. Swathi Reis Hematocrit (Bld) [Volume fraction] 31.4 % Critically low 36.0-48.0 [facility] Comment on above: Performed By: #### C BC ####[facility] Tlvhhysjcp5185 [place] [address]Dr. Swathi Reis Hemoglobin (Bld) [Mass/Vol] 10.3 g/dL Critically low 12.0-16.0 [facility] Comment on above: Performed By: #### C BC ####[facility] Djkxnngijn2426 [place] [address]Dr. Swathi Reis IG # 0.12 10e3/ul Critically high 0.00-0.03 [facility] Comment on above: Performed By: #### C BC ####[facility] Kskxtiwcbx1737 [place] [address]Dr. Swathi Reis IG % 0.7 % Critically high 0.0-0.5 [facility] Comment on above: Performed By: #### C BC ####[facility] Gxiowmbejg7735 [place] [address]Dr. Swathi Reis LYMPH # 0.9 103/ul Critically low 1.2-3.8 [facility] Comment on above: Performed By: #### C BC ####[facility] Gklnzwqxkh8951 [place] [address]Dr. Swathi Reis Lymphocytes/100 WBC (Bld) 5.6 % Critically low 20.5-60.0 [facility] Comment on above: Performed By: #### C BC ####[facility] Bsiewxsihg18[address] [place] [address]Dr. Swathi Reis MANUAL DIFF REQ NO Normal [facility] Comment on above: Performed By: #### C BC ####[facility] Ojnvlzrryb2588 [place] [address]Dr. Swathi Reis MCH (RBC) [Entitic mass] 29.3 pg Normal 26.7-34.0 [facility] Comment on above: Performed By: #### C BC ####[facility] Bsjjuetbxb4544 [place] [address]Dr. Swathi Reis MCHC (RBC) [Mass/Vol] 32.8 g/dL Normal 29.9-35.2 [facility] Comment on above: Performed By: #### C BC ####[facility] Mecbvtazgq9663 [place] [address]Dr. Swathi Chato MCV (RBC) [Entitic vol] 89.5 fL Normal 81.0-99.0 [facility] Comment on above: Performed By: #### C BC ####[facility] Gyuhjypgip9718 [place] [address]Dr. Swathi Chato MONO # 0.9 103/ul Critically high 0.3-0.8 [facility] Comment on above: Performed By: #### C BC ####[facility] Ocqlczeida1801 [place] [address]Dr. Inessatracy Reis Monocytes/100 WBC (Bld) 5.6 % Normal 1.7-12.0 [facility] Comment on above: Performed By: #### C BC ####[facility] Abmywfrxtj6759 [place] [address]Dr. Swathi Reis NEUT # 14.1 103/ul Critically high 1.4-6.5 [facility] Comment on above: Performed By: #### C BC ####[facility] Kyhhyoxhdf8214 [place] [address]Dr. Inessatracy Reis Neutrophils/100 WBC (Bld) 87.3 % Critically high 43.0-75.0 [facility] Comment on above: Performed By: #### C BC ####[facility] Epixglfosh9061 [place] [address]Dr. Swathi Reis Platelet mean volume (Bld) [Entitic vol] 10.8 fL Normal 9.5-13.5 [facility] Comment on above: Performed By: #### C BC ####[facility] Msfxxpnens0251 [place] [address]Dr. Swathi Reis PLT 303 103/ul Normal 150-450 [facility] Comment on above: Performed By: #### C BC ####[facility] Qytjjlzcaf8183 [place] [address]Dr. Swathi Reis RBC 3.51 106/ul Critically low 4.20-5.40 [facility] Comment on above: Performed By: #### C BC ####[facility] Pbomauuvli8878 [place] [address]Dr. Swathi Reis WBC 16.2 103/ul Critically high 4.0-11.0 [facility] Comment on above: Performed By: #### C BC ####[facility] Ptwldanuys7749 [place] [address]Dr. Swathi Reis DIGOXINon 08-20-2022 DIG 1.2 ng/mL Normal 0.9-2.0 [facility] Comment on above: Performed By: #### D IG ####[facility] Tcylktduxg4318 [place] [address]Dr. Swathi Reis POINT OF CARE GLUCOSEon 07-25 Glucose [Mass/Vol] 180 mg/dL Critically high 74-106 [facility] Comment on above: Performed By: #### P OCGLUC ####[facility] Slvwdyheoy8673 [place] [address]Dr. Swathi Reis Glucose [Mass/Vol] 115 mg/dL Critically high 74-106 [facility] Comment on above: Performed By: #### P OCGLUC ####[facility] Wpphmxjgup0470 [place] [address]Dr. Swathi Reis Glucose [Mass/Vol] 235 mg/dL Critically high -106 [facility] Comment on above: Performed By: #### P OCGLUC ####[facility] Lywpjmthgs9969 [place] [address]Dr. Swathi Reis PROF 14(COMP METB)on 022 Albumin [Mass/Vol] 2.5 g/dL Critically low 3.4-5.0 Th e [facility] Comment on above: Performed By: #### C MP, BNP ####[facility] Xiuozdfaxl7136 [place] [address]Dr. Swathi Reis Albumin/Globulin [Mass ratio] 0.6 {ratio} Normal [facility] Comment on above: Performed By: #### C MP, BNP ####[facility] Onvxrtvxnu3142 [place] [address]Dr. Swathi Reis ALP [Catalytic activity/Vol] 69 U/L Normal 46-116 [facility] Comment on above: Performed By: #### C MP, BNP ####[facility] Taxpwcnoys[address] [place] [address]Dr. Swathi Reis ALT [Catalytic activity/Vol] 11 U/L Critically low 14-59 [facility] Comment on above: Performed By: #### C MP, BNP ####[facility] Nichuptwap5088 [place] [address]Dr. Swathi Reis Anion gap [Moles/Vol] 11.7 mmol/L Normal [facility] Comment on above: Performed By: #### C MP, BNP ####[facility] Vyjtntsasb1056 [place] [address]Dr. Swathi Reis AST [Catalytic activity/Vol] 18 U/L Normal 15-37 [facility] Comment on above: Performed By: #### C MP, BNP ####[facility] Vqjhamntqc5360 [place] [address]Dr. Swathi Reis Bilirubin [Mass/Vol] 1.0 mg/dL Normal 0.2-1.0 [facility] Comment on above: Performed By: #### C MP, BNP ####[facility] Pzgmhrzflg3075 [place] [address]Dr. Swathi Reis Calcium [Mass/Vol] 9.2 mg/dL Normal 8.5-10.1 [facility] Comment on above: Performed By: #### C MP, BNP ####[facility] Qlgxifzoqy9225 [place] [address]Dr. Swathi Reis Chloride [Moles/Vol] 104 mmol/L Normal 98-107 [facility] Comment on above: Performed By: #### C MP, BNP ####[facility] Sgvoxinpoo[address] [place], [place] [address]Dr. Swathi Reis CO2 [Moles/Vol] 32.7 mmol/L Critically high 21.0-32.0 [facility] Comment on above: Performed By: #### C MP, BNP ####[facility] Iphniaiwlw724[address] [place], [place] [address]Dr. Swathi Reis Creatinine [Mass/Vol] 1.86 mg/dL Critically high 0.55-1.02 [facility] Comment on above: Performed By: #### C MP, BNP ####[facility] Lwizobrwtd18[address] [place], [place] [address]Dr. Inessatracy Chato EGFR-AF RWANDAN 32 mL/min/1.73m2 Critically low >=60 [facility] Comment on above: Performed By: #### C MP, BNP ####[facility] Elartdjgog[address] [place], [place] [address]Dr. Swathi Reis EGFR-NON AF RWANDAN 26 mL/min/1.73m2 Critically low >=60 [facility] Comment on above: Performed By: #### C MP, BNP ####[facility] Nfgvybrkjq288[address] [place], [place] [address]Dr. Swathi Reis Globulin (S) [Mass/Vol] 4.2 g/dL Normal [facility] Comment on above: Performed By: #### C MP, BNP ####[facility] Kpnqbebuwy87[address] [place], [place] [address]Dr. Swathi Reis Glucose [Mass/Vol] 135 mg/dL Critically high 74-106 [facility] Comment on above: Performed By: #### C MP, BNP ####[facility] Qrhkaacxgl[address] [place], [place] [address]Dr. Swathi Reis Potassium [Moles/Vol] 3.4 mmol/L Critically low 3.5-5.1 [facility] Comment on above: Performed By: #### C MP, BNP ####[facility] Coukwbgdlp1390 [place] [address]Dr. Swathi Reis Protein [Mass/Vol] 6.7 g/dL Normal 6.4-8.2 [facility] Comment on above: Performed By: #### C MP, BNP ####[facility] Epooewneiv124[address] [place], [place] [address]Dr. Inessatracy Reis Sodium [Moles/Vol] 145 mmol/L Normal 136-145 [facility] Comment on above: Performed By: #### C MP, BNP ####[facility] Lmsezgswaw[address] [place], [place] [address]Dr. Swathi Reis Urea nitrogen [Mass/Vol] 29.0 mg/dL Critically high 7.0-18.0 [facility] Comment on above: Performed By: #### C MP, BNP ####[facility] Pbkukoqvtw[address] [place], [place] [address]Dr. Swathi Reis Urea nitrogen/Creatinine [Mass ratio] 15.6 mg/mg Normal [facility] Comment on above: Performed By: #### C MP, BNP ####[facility] Mclzaburiy[address] [place], [place] [address]Dr. Inessatracy Reis XR CHEST 1 Von 08-20-2022 XR CHEST 1 V Normal [facility] BLOOD GASES BTYon 08-19-2022 02 MODE BIPAP Normal [facility] Comment on above: Performed By: #### A BG ####[facility] Gckjkzbxdz[address] [place], [place] [address]Dr. Swathi Reis ALLENS TEST Positive Normal [facility] Comment on above: Performed By: #### A BG ####[facility] Qfuzcnofez[address] [place], [place] [address]Dr. Swathi Reis Base excess Calc (Bld) [Moles/Vol] 0.8 mmol/L Normal -2.0-2.0 [facility] Comment on above: Performed By: #### A BG ####[facility] X[address] [place] [address]Dr. Swathi Reis BIPAP PRESSURE 12/6 Normal [facility] Comment on above: Performed By: #### A BG ####[facility] Umdpjfqktq9[address] [place] [address]Dr. Swathi Reis CPAP Normal [facility] Comment on above: Performed By: #### A BG ####[facility] Xxbtghkjkt3854 [place] [address]Dr. Swathi Reis FIO2 90.00 % Normal [facility] Comment on above: Performed By: #### A BG ####[facility] Pnqmilvixi[address] [place], [place] [address]Dr. Swathi Reis HCO3 (Bld) [Moles/Vol] 25.9 mmol/L Normal 22.0-26.0 [facility] Comment on above: Performed By: #### A BG ####[facility] Mpufcitibx[address] [place], [place] [address]Dr. Swathi Chato LPM Normal [facility] Comment on above: Performed By: #### A BG ####[facility] Usxvauufxx065[address] [place], [place] [address]Dr. Swathi Reis MINUTE VOLUME Normal The [facility] Comment on above: Performed By: #### A BG ####[facility] Jgdthfzcxb038[address] [place], [place] [address]Dr. Swathi Reis Oxygen (Bld) [Partial pressure] 95.0 mm[Hg] Normal 80.0-100.0 [facility] Comment on above: Performed By: #### A BG ####[facility] Wyidxlzeub9[address] [place], [place] [address]Dr. Swathi Reis Oxygen saturation in Blood 97.7 % Normal 95.0-100.0 [facility] Comment on above: Performed By: #### A BG ####[facility] Cvgoimzizm[address] [place], [place] [address]Dr. Swathi Reis PCO2 44.2 mmHg Normal 35.0-45.0 [facility] Comment on above: Performed By: #### A BG ####[facility] Klzfsxffuv224[address] [place] [address]Dr. Swathi Reis PEEP [facility] Comment on above: Performed By: #### A BG ####[facility] Nqmnmyvlue1363 [place] [address]Dr. Swathi Reis pH (Bld) 7.377 [pH] Normal 7.350-7.450 [facility] Comment on above: Performed By: #### A BG ####[facility] Hhcajdjbfx10[address] [place] [address]Dr. Swathi Reis PIP [facility] Comment on above: Performed By: #### A BG ####[facility] Hvesuiphan25[address] [place], [place] [address]Dr. Swathi Reis PS [facility] Comment on above: Performed By: #### A BG ####[facility] Avdunxrori7765[address] [place], [place] [address]Dr. Swathi Reis PUNCTURE SITE RR [facility] Comment on above: Performed By: #### A BG ####[facility] Rkbdvglcbi[address] [place], [place] [address]Dr. Swathi Reis RATE [facility] Comment on above: Performed By: #### A BG ####[facility] Feiqxmqzut607[address] [place], [place] [address]Dr. Swathi Reis VENT MODE [facility] Comment on above: Performed By: #### A BG ####[facility] Vthnhtopkd[address] [place], [place] [address]Dr. Swathi Reis [place] [facility] Comment on above: Performed By: #### A BG ####[facility] Rlnqawhuci387[address] [place], [place] [address]Dr. Swathi Reis BNPon 08-19-2022 Natriuretic peptide B (Bld) [Mass/Vol] 2862.0 pg/mL Critically high <=1,800.0 [facility] Comment on above: Performed By: #### L IPA, BNP ####[facility] Frzmljozvg89[address] [place], [place] [address]Dr. Swathi Reis CARDIAC TRINA 3-6on 2 CK [Catalytic activity/Vol] 25 U/L Critically low 26-192 [facility] Comment on above: Performed By: #### C MREP ####[facility] Cwxcnljmif4[address] [place] [address]Dr. Swathi Reis CK.MB [Mass/Vol] 0.57 ng/mL Normal <=3.60 The [facility] Comment on above: Performed By: #### C MREP ####[facility] Kpypyhazsr64[address] [place] [address]Dr. Swathi Reis HSTROP 16.6 pg/mL Normal 4.0-51.3 [facility] Comment on above: Result Comment: CUT- OFF POINTS HAVE BEEN ESTABLISHED BASED ON THE FOURTH UNIVERSAL DEFINITIONS OF MYOCARDIALINFARCTION. THE UPPER REFERENCE LIMIT (URL) OF TROPONIN, DEFINED THE 99TH PERCENTILE OFcTnI DISTRIBUTION IN A REFERENCE POPULATION, HAS BEEN CONFIRMED THE DECISION THRESHOLDFOR MO DIAGNOSIS. Performed By: #### C MREP ####[facility] Zdiqvydocx56[address] [place] [address]Dr. Swathi Reis CK [Catalytic activity/Vol] 26 U/L Normal 26-192 [facility] Comment on above: Performed By: #### C MREP ####[facility] Mnulenegmm[address] [place] [address]Dr. Swathi Reis CK.MB [Mass/Vol] 0.59 ng/mL Normal <=3.60 [facility] Comment on above: Performed By: #### C MREP ####[facility] Xgfdduguzh7506 [place] [address]Dr. Swathi Reis HSTROP 16.3 pg/mL Normal 4.0-51.3 [facility] Comment on above: Result Comment: CUT- OFF POINTS HAVE BEEN ESTABLISHED BASED ON THE FOURTH UNIVERSAL DEFINITIONS OF MYOCARDIALINFARCTION. THE UPPER REFERENCE LIMIT (URL) OF TROPONIN, DEFINED THE 99TH PERCENTILE OFcTnI DISTRIBUTION IN A REFERENCE POPULATION, HAS BEEN CONFIRMED THE DECISION THRESHOLDFOR MO DIAGNOSIS. Performed By: #### C MREP ####[facility] Ftgosgcdsf[address] [place] [address]Dr. Swathi Reis CBC AUTO DIFFon 08-19-2022 BASO # 0.1 103/ul Normal 0.0-0.1 [facility] Comment on above: Performed By: #### C BC ####[facility] Pbkrfnyqpt87[address] [place], [place] [address]Dr. Swathi Reis Basophils/100 WBC (Bld) 0.4 % Normal 0.2-2.0 [facility] Comment on above: Performed By: #### C BC ####[facility] Ehcrqxgbie216[address] [place], [place] [address]Dr. Swathi Reis EO # 0.1 103/ul Normal 0.0-0.7 [facility] Comment on above: Performed By: #### C BC ####[facility] Iitimjjihv824[address] [place], [place] [address]Dr. Swathi Reis Eosinophils/100 WBC (Bld) 0.4 % Critically low 0.9-7.0 [facility] Comment on above: Performed By: #### C BC ####[facility] Pkucuzncuf2034[address] [place], [place] [address]Dr. Swathi Reis Erythrocyte distribution width (RBC) [Ratio] 14.2 % Normal 11.0-15.0 [facility] Comment on above: Performed By: #### C BC ####[facility] Saoiubgywx498[address] [place], [place] [address]Dr. Swathi Reis Hematocrit (Bld) [Volume fraction] 34.4 % Critically low 36.0-48.0 [facility] Comment on above: Performed By: #### C BC ####[facility] Tdhbliiznv[address] [place], [place] [address]Dr. Swathi Reis Hemoglobin (Bld) [Mass/Vol] 11.2 g/dL Critically low 12.0-16.0 [facility] Comment on above: Performed By: #### C BC ####[facility] Htsjmpckgl39[address] [place], [place] [address]Dr. Swathi Reis IG # 0.08 10e3/ul Critically high 0.00-0.03 The [facility] Comment on above: Performed By: #### C BC ####[facility] Nmgccbscer[address] [place] [address]Dr. Swathi Reis IG % 0.4 % Normal 0.0-0.5 [facility] Comment on above: Performed By: #### C BC ####[facility] Vthfeabexw9[address] [place] [address]Dr. Swathi Reis LYMPH # 0.8 103/ul Critically low 1.2-3.8 [facility] Comment on above: Performed By: #### C BC ####[facility] Essquppnks36[address] [place] [address]Dr. Swathi Chato Lymphocytes/100 WBC (Bld) 4.1 % Critically low 20.5-60.0 [facility] Comment on above: Performed By: #### C BC ####[facility] Ghnszcpuhq16[address] [place] [address]Dr. Inessatracy Reis MANUAL DIFF REQ NO Normal [facility] Comment on above: Performed By: #### C BC ####[facility] Iqcxvldmgb86[address] [place] [address]Dr. Swathi Reis MCH (RBC) [Entitic mass] 29.1 pg Normal 26.7-34.0 [facility] Comment on above: Performed By: #### C BC ####[facility] Nwnwssjocw[address] [place], [place] [address]Dr. Swathi Reis MCHC (RBC) [Mass/Vol] 32.6 g/dL Normal 29.9-35.2 [facility] Comment on above: Performed By: #### C BC ####[facility] Hdoewxmtdn3884 [place] [address]Dr. Swathi Reis MCV (RBC) [Entitic vol] 89.4 fL Normal 81.0-99.0 [facility] Comment on above: Performed By: #### C BC ####[facility] Llmervrdmw[address] [place], [place] [address]Dr. Swathi Reis MONO # 1.1 103/ul Critically high 0.3-0.8 [facility] Comment on above: Performed By: #### C BC ####[facility] Afanicmilc[address] [place] [address]Dr. Swathi Reis Monocytes/100 WBC (Bld) 5.8 % Normal 1.7-12.0 [facility] Comment on above: Performed By: #### C BC ####[facility] Ngzzsgszce7907 [place] [address]Dr. Swathi Reis NEUT # 16.4 103/ul Critically high 1.4-6.5 The [facility] Comment on above: Performed By: #### C BC ####[facility] Sghjpxrpsu9[address] [place] [address]Dr. Swathi Reis Neutrophils/100 WBC (Bld) 88.9 % Critically high 43.0-75.0 [facility] Comment on above: Performed By: #### C BC ####[facility] Mfsgjtnxxa4721 [place] [address]Dr. Swathi Reis Platelet mean volume (Bld) [Entitic vol] 10.6 fL Normal 9.5-13.5 [facility] Comment on above: Performed By: #### C BC ####[facility] Puijiwfhlr6315 [place] [address]Dr. Swathi Reis PLT 366 103/ul Normal 150-450 [facility] Comment on above: Performed By: #### C BC ####[facility] Sgqskifhtc0657 [place] [address]Dr. Swathi Reis RBC 3.85 106/ul Critically low 4.20-5.40 [facility] Comment on above: Performed By: #### C BC ####[facility] Ryugxngiwi04[address] [place] [address]Dr. Swathi Reis WBC 18.4 103/ul Critically high 4.0-11.0 The [facility] Comment on above: Performed By: #### C BC ####[facility] Nkaajsqyhb15[address] [place] [address]Dr. Swathi Reis CTA CHEST WO W CONon 022 CTA CHEST WO W CON Normal [facility] CULTURE BLOODon 08-19-2022 Microscopic examination of blood, culture Culture Observations: NO GROWTH AT 5 DAYS. Normal [facility] Comment on above: Performed By: #### B LDCX2 ####[facility] Stdqyhklzn5[address] [place] [id number]. Swathi Reis Microscopic examination of blood, culture Culture Observations: NO GROWTH AT 5 DAYS. Normal [facility] Comment on above: Performed By: #### B LDCX1 ####[facility] Ilycknatfm3[address] [place] [address]Dr. Swathi Reis Covid-19 PCR (CVDTB)on 07-25 SARS-CoV-2 (COVID-19) RNA ÓSCAR+probe Ql (Unsp spec) Not detected Normal NOT DETECTED [facility] Comment on above: Result Comment: When [...] for this test is supported by the [place] of [employer] and Human Service's declaration that [...] be used). Performed By: #### C VDTBH ####[facility] Aefmbwyhto6822 [place] [address]Dr. Swathi Reis Performed By: #### R SPLUS ####[facility] Zehwblywmd5193 [place] [address]Dr. Swathi Reis LACTATE/LACTIC ACIDon 2021 Lactate [Moles/Vol] 1.5 mmol/L Normal 0.4-1.9 [facility] Comment on above: Performed By: #### L ACT ####[facility] Ldkfyisfmk8704 [place] [address]Dr. Swathi Reis LIPASEon 08-19-2022 Lipase [Catalytic activity/Vol] 130.0 U/L Normal 73.0-393.0 [facility] Comment on above: Performed By: #### L IPA, BNP ####[facility] Rbhxcnnppx4666 [place] [address]Dr. Swathi Reis POINT OF CARE GLUCOSEon 07-25 Glucose [Mass/Vol] 222 mg/dL Critically high -106 [facility] Comment on above: Performed By: #### P OCGLUC ####[facility] Hedgezlycc[address] [place], [place] [address]Dr. Swathi Reis Glucose [Mass/Vol] 166 mg/dL Critically high -106 [facility] Comment on above: Performed By: #### P OCGLUC ####[facility] Rsnhcfbjyt64[address] [place], [place] [address]Dr. Swathi Reis Glucose [Mass/Vol] 213 mg/dL Critically high -106 [facility] Comment on above: Performed By: #### P OCGLUC ####[facility] Itoaccsptc38[address] [place], [place] [address]Dr. Swathi Reis RESPIRATORY PANEL PLUSon Adenovirus Not detected Normal NOT DETECTED [facility] Comment on above: Performed By: #### R SPLUS ####[facility] Bzesizpmsw577[address] [place], [place] [address]Dr. tracy Reis B. Parapertusis Not detected Normal NOT DETECTED [facility] Comment on above: Performed By: #### R SPLUS ####[facility] Bxwkkaerxd25[address] [place], [place] [address]Dr. Swathi Reis B. Pertussis Not detected Normal NOT DETECTED [facility] Comment on above: Performed By: #### R SPLUS ####[facility] Lwbczuhpvx77[address] [place], [place] [address]Dr. tracy [facility] Chlamydia Pneumoniae Not detected Normal NOT DETECTED [facility] Comment on above: Performed By: #### R SPLUS ####[facility] Sbyvekkixv616[address] [place], [place] [address]Dr. tracy [facility] Coronavirus 229E Not detected Normal NOT DETECTED [facility] Comment on above: Performed By: #### R SPLUS ####[facility] Wfolaheqxx358[address] [place], [place] [address]Dr. Swatih [facility] Coronavirus HKU1 Not detected Normal NOT DETECTED The [facility] Comment on above: Performed By: #### R SPLUS ####[facility] Wqscymxfwq06[address] [place], [place] [address]Dr. Swathi [facility] Coronavirus NL63 Not detected Normal NOT DETECTED [facility] Comment on above: Performed By: #### R SPLUS ####[facility] Rrcncvwzmx684[address] [place], [place] [address]Dr. Swathi [facility] Coronavirus OC43 Not detected Normal NOT DETECTED [facility] Comment on above: Performed By: #### R SPLUS ####[facility] Rxnmiptxqi569[address] [place], [place] [address]Dr. Swathi [facility] Influenza A H1 2009 Not detected Normal NOT DETECTED [facility] Comment on above: Performed By: #### R SPLUS ####[facility] Dwhszexvzz433[address] [place], [place] [address]Dr. Swathi Reis Influenza A H3 Not detected Normal NOT DETECTED [facility] Comment on above: Performed By: #### R SPLUS ####[facility] Mzozldgicj467[address] [place], [place] [address]Dr. Swathi [facility] Influenza B Not detected Normal NOT DETECTED [facility] Comment on above: Performed By: #### R SPLUS ####[facility] Efleytesij0016[address] [place], [place] [address]Dr. Swathi [facility] Metapneumovirus Not detected Normal NOT DETECTED [facility] Comment on above: Performed By: #### R SPLUS ####[facility] Huvcwkliaw024[address] [place], [place] [address]Dr. Swathi Reis Mycoplas. Pneumoniae Not detected Normal NOT DETECTED [facility] Comment on above: Performed By: #### R SPLUS ####[facility] Mjoffnpsya[address] [place], [place] [address]Dr. Swathi Reis Parainfluenza 1 Not detected Normal NOT DETECTED [facility] Comment on above: Performed By: #### R SPLUS ####[facility] Djfxumkhwv88[address] [place], [place] [address]Dr. Swathi Reis Parainfluenza 2 Not detected Normal NOT DETECTED [facility] Comment on above: Performed By: #### R SPLUS ####[facility] Kzteoobhji81[address] [place], [place] [address]Dr. Swathi Reis Parainfluenza 3 Not detected Normal NOT DETECTED [facility] Comment on above: Performed By: #### R SPLUS ####[facility] Jzqheeeyai[address] [place], [place] [address]Dr. Swathi Reis Parainfluenza 4 Not detected Normal NOT DETECTED [facility] Comment on above: Performed By: #### R SPLUS ####[facility] Ieadghlmid78[address] [place], [place] [address]Dr. Swathi Reis Rhino/Enterovirus Not detected Normal NOT DETECTED [facility] Comment on above: Performed By: #### R SPLUS ####[facility] Vsrygsdkvl922[address] [place], [place] [address]Dr. Swathi Reis RP2 Header 1 RESPIRATORY PANEL: VIRUSES Normal [facility] Comment on above: Performed By: #### R SPLUS ####[facility] Wwoyelpdsq[address] [place], [place] [address]Dr. Swathi Reis RP2 Header 2 RESPIRATORY PANEL: BACTERIA Normal [facility] Comment on above: Performed By: #### R SPLUS ####[facility] Mtanhqcjiw[address] [place], [place] [address]Dr. Swathi Reis RSV Not detected Normal NOT DETECTED [facility] Comment on above: Performed By: #### R SPLUS ####[facility] Xqzgwdybgv64[address] [place], [place] [address]Dr. Swathi Reis XR CHEST 1 Von 08-19-2022 XR CHEST 1 V Normal [facility] BNPon 08-18-2022 Natriuretic peptide B (Bld) [Mass/Vol] 2955.0 pg/mL Critically high <=1,800.0 [facility] Comment on above: Performed By: #### B MEDICAL OFFICE ASSISTANT ####[facility] Wuiofihbdt0652 [place] [id number]. Swathi Chato CARDIAC TRINA ADMITon 022 CK [Catalytic activity/Vol] 26 U/L Normal 26-192 [facility] Comment on above: Performed By: #### B FAY, RACQUEL ####[facility] Mtvscxtgsf0181 [place] [address]Dr. Swathi Reis CK.MB [Mass/Vol] 0.79 ng/mL Normal <=3.60 The [facility] Comment on above: Performed By: #### B FAY, RACQUEL ####[facility] Zncrjcapzr5154 [place] [address]Dr. Inessatracy Reis HSTROP 16.0 pg/mL Normal 4.0-51.3 [facility] Comment on above: Result Comment: CUT- OFF POINTS HAVE BEEN ESTABLISHED BASED ON THE FOURTH UNIVERSAL DEFINITIONS OF MYOCARDIALINFARCTION. THE UPPER REFERENCE LIMIT (URL) OF TROPONIN, DEFINED THE 99TH PERCENTILE OFcTnI DISTRIBUTION IN A REFERENCE POPULATION, HAS BEEN CONFIRMED THE DECISION THRESHOLDFOR MO DIAGNOSIS. Performed By: #### B RACQUEL APONTE ####[facility] Koamzdsirq[address] [place], [place] [address]Dr. Inessatracy Reis GUANACO 47 ng/mL Normal 9-82 [facility] Comment on above: Performed By: #### B RACQUEL APONTE ####[facility] Ochshdyloi[address] [place] [address]Dr. Swathi Reis CBC AUTO DIFFon 08-18-2022 BASO # 0.1 103/ul Normal 0.0-0.1 [facility] Comment on above: Performed By: #### C BC ####[facility] Xgpssaphst4520 [place] [address]Dr. Swathi Reis Basophils/100 WBC (Bld) 0.4 % Normal 0.2-2.0 [facility] Comment on above: Performed By: #### C BC ####[facility] Dbostvjxxi044[address] [place], [place] [address]Dr. Swathi Reis EO # 0.1 103/ul Normal 0.0-0.7 [facility] Comment on above: Performed By: #### C BC ####[facility] Jqsjforymh5039 [place] [address]Dr. Swathi Reis Eosinophils/100 WBC (Bld) 0.9 % Normal 0.9-7.0 [facility] Comment on above: Performed By: #### C BC ####[facility] Gbbwkbzrom0264 [place] [address]Dr. Swathi Reis Erythrocyte distribution width (RBC) [Ratio] 14.2 % Normal 11.0-15.0 [facility] Comment on above: Performed By: #### C BC ####[facility] Mojhnzrkms[address] [place], [place] [address]Dr. Swathi Reis Hematocrit (Bld) [Volume fraction] 34.1 % Critically low 36.0-48.0 [facility] Comment on above: Performed By: #### C BC ####[facility] Gojnrhvvqs427[address] [place], [place] [address]Dr. Swathi Reis Hemoglobin (Bld) [Mass/Vol] 11.2 g/dL Critically low 12.0-16.0 [facility] Comment on above: Performed By: #### C BC ####[facility] Phmxgkiuer[address] [place], [place] [address]Dr. Swathi Reis IG # 0.06 10e3/ul Critically high 0.00-0.03 [facility] Comment on above: Performed By: #### C BC ####[facility] Basbyesyzi[address] [place], [place] [address]Dr. Swathi Reis IG % 0.4 % Normal 0.0-0.5 [facility] Comment on above: Performed By: #### C BC ####[facility] Safftyunnp22[address] [place], [place] [address]Dr. Swathi Reis LYMPH # 1.4 103/ul Normal 1.2-3.8 [facility] Comment on above: Performed By: #### C BC ####[facility] Uqdsljyfzj119[address] [place], [place] [address]Dr. Swathi Reis Lymphocytes/100 WBC (Bld) 10.1 % Critically low 20.5-60.0 [facility] Comment on above: Performed By: #### C BC ####[facility] Fjmliqgjva6737 [place] [address]Dr. Swathi Reis MANUAL DIFF REQ NO Normal [facility] Comment on above: Performed By: #### C BC ####[facility] Wiaqntrpwq5041 [place] [id number]. Swathi Reis MCH (RBC) [Entitic mass] 29.2 pg Normal 26.7-34.0 [facility] Comment on above: Performed By: #### C BC ####[facility] Lgxklhbxde2507 [place] [address]Dr. Swathi Reis MCHC (RBC) [Mass/Vol] 32.8 g/dL Normal 29.9-35.2 [facility] Comment on above: Performed By: #### C BC ####[facility] Umrdhierps[address] [place], [place] [address]Dr. Swathi Reis MCV (RBC) [Entitic vol] 89.0 fL Normal 81.0-99.0 [facility] Comment on above: Performed By: #### C BC ####[facility] S[address]jxvzcem[address] [place], [place] [address]Dr. Swathi Reis MONO # 1.1 103/ul Critically high 0.3-0.8 [facility] Comment on above: Performed By: #### C BC ####[facility] Lshtrkonmx[address] [place], [place] [address]Dr. Swathi Reis Monocytes/100 WBC (Bld) 8.3 % Normal 1.7-12.0 [facility] Comment on above: Performed By: #### C BC ####[facility] Emohuoquao8765 [place] [address]Dr. Swathi Reis NEUT # 11.0 103/ul Critically high 1.4-6.5 [facility] Comment on above: Performed By: #### C BC ####[facility] Tufafcnbaq8[address] [place] [address]Dr. Swathi Reis Neutrophils/100 WBC (Bld) 79.9 % Critically high 43.0-75.0 [facility] Comment on above: Performed By: #### C BC ####[facility] [address]kgh[address] [place], [place] [address]Ta. Swathi Reis Platelet mean volume (Bld) [Entitic vol] 10.7 fL Normal 9.5-13.5 [facility] Comment on above: Performed By: #### C BC ####[facility] Hisvqhmljy9473 [place], [place] [address]Qn. Swathi Reis PLT 408 103/ul Normal 150-450 [facility] Comment on above: Performed By: #### C BC ####[facility] Bjpdldfoso7125 [place], [place] [address]Dv. Swathi Reis RBC 3.83 106/ul Critically low 4.20-5.40 [facility] Comment on above: Performed By: #### C BC ####[facility] [facility] [address] [place], [place] [address]Xi. Swathi Reis WBC 13.8 103/ul Critically high 4.0-11.0 [facility] Comment on above: Performed By: #### C BC ####[facility] Ixxqv[address] [place], [place] [address]Ur. Swathi Reis Covid-19 PCR ([facility])on 07-25 SARS-CoV-2 (COVID-19) RNA ÓSCAR+probe Ql (Unsp spec) Not detected Normal NOT DETECTED [facility] Comment on above: Result Comment: When [...] for this test is supported by the Summer Child Caregiver of Health and Human Service's declaration that [...] be used). Performed By: #### C VDTBH ####[facility] Xjropnaws[address] [place], [place] [address]Dr. Swathi Reis D-DIMERon 08-18-2022 D-DIMER 1.83 mg/L FEU Critically high <=0.59 [facility] Comment on above: Performed By: #### D DIM ####[facility] [address] [place] [address]Dr. Swathi Reis D-DIMER COMMENTS SEE BELOW Normal [facility] Comment on above: Result Comment: Incr eases [...] generalized hospitalization. Performed By: #### D DIM ####[facility] Vrazkkvbis[address] [place], [place] [address]Dr. Swathi Reis INFLUENZA A AND B AGon 08-18 INFLUENZA A AG Negative Normal NEGATIVE SEE COMMENT [facility] Comment on above: Performed By: #### R SV, INFLUAB ####[facility] Prkuvcl[address] [place], [place] [address]Dr. Swathi Reis INFLUENZA B AG Negative Normal NEGATIVE SEE COMMENT [facility] Comment on above: Performed By: #### R SV, INFLUAB ####[facility] Qhoxnacvvv[address] [place], [place] [address]Dr. Swathi Reis INFLUPOSH SEE BELOW Normal [facility] Comment on above: Result Comment: NOTE : Live attenuated influenzae vaccine viruses can cause a positive result for a rapid influenza diagnostic test if administered up to 7 days prior to rapid testing. Performed By: #### R SV, INFLUAB ####[facility] Ajgkubnkti[address] [place], [place] [address]Dr. Swathi Reis INFLUPOSHB SEE BELOW Normal [facility] Comment on above: Result Comment: NOTE : Live attenuated influenzae vaccine viruses can cause a positive result for a rapid influenza diagnostic test if administered up to 7 days prior to rapid testing. Performed By: #### R SV, INFLUAB ####[facility] [address] [place] [address]Dr. Swathi Reis INTERNAL CONTROLS Within Normal Limits Normal Wi thin Normal Limits [facility] Comment on above: Performed By: #### R SV, INFLUAB ####[facility] Oebrj[address]rd[address] [place], [place] [address]Dr. Swathi Reis LACTATE/LACTIC ACIDon 2021 Lactate [Moles/Vol] 1.9 mmol/L Normal 0.4-1.9 [facility] Comment on above: Performed By: #### L ACT ####[facility] Vhgutwckcl[address] [place], [place] [address]Dr. Swathi Reis PROF CHEM 8 (BAS METB)on Anion gap [Moles/Vol] 13.9 mmol/L Normal [facility] Comment on above: Performed By: #### RACQUEL Gonsales MP ####[facility] Airsohktsv[address] [place], [place] [address]Dr. Swathi Reis Calcium [Mass/Vol] 9.9 mg/dL Normal 8.5-10.1 [facility] Comment on above: Performed By: #### B FAY, CMADM ####[facility] Mmmgonvels[address] [place], [place] [address]Dr. Swathi Reis Chloride [Moles/Vol] 102 mmol/L Normal 98-107 [facility] Comment on above: Performed By: #### B FAY, CMADM ####[facility] Qrpactdkuk[address] [place], [place] [address]Dr. Swathi Reis CO2 [Moles/Vol] 29.6 mmol/L Normal 21.0-32.0 [facility] Comment on above: Performed By: #### Dru APONTE, CMADM ####[facility] Xrwibdnbcv[address] [place], [place] [address]Dr. Swathi Reis Creatinine [Mass/Vol] 1.61 mg/dL Critically high 0.55-1.02 [facility] Comment on above: Performed By: #### RACQUEL Gonsales MP ####[facility] S[address] [place] [address]Dr. Swathi Reis EGFR-AF RWANDAN 38 mL/min/1.73m2 Critically low >=60 [facility] Comment on above: Performed By: #### RACQUEL Gonsales MP ####[facility] [address] [place] [address]Dr. Swathi Reis EGFR-NON AF RWANDAN 31 mL/min/1.73m2 Critically low >=60 [facility] Comment on above: Performed By: #### RACQUEL Gonsales MP ####[facility] Jbrkdbgytf[address] [place], [place] [address]Dr. Swathi Reis Glucose [Mass/Vol] 192 mg/dL Critically high 74-106 [facility] Comment on above: Performed By: #### RACQUEL Gonsales MP ####[facility] Ubuom[address]hdz[address] [place], [place] [address]Dr. Swathi Reis Potassium [Moles/Vol] 4.5 mmol/L Normal 3.5-5.1 [facility] Comment on above: Performed By: #### RACQUEL Gonsales MP ####[facility] Zyeqhdukng[address] [place], [place] [address]Dr. Swathi Reis Sodium [Moles/Vol] 141 mmol/L Normal 136-145 [facility] Comment on above: Performed By: #### RACQUEL Gonsales MP ####[facility] Rsxldvmpcx[address] [place], [place] [address]Dr. Swathi Reis Urea nitrogen [Mass/Vol] 27.0 mg/dL Critically high 7.0-18.0 [facility] Comment on above: Performed By: #### RACQUEL Gonsales MP ####[facility] [address]xf[address] [place] [address]Dr. Swathi Reis Urea nitrogen/Creatinine [Mass ratio] 16.8 mg/mg Normal [facility] Comment on above: Performed By: #### RACQUEL Gonsales MP ####[facility] X[address]vesplaxs[address] [place] [address]Dr. Swathi Reis RSVon 08-18-2022 RSV AG Negative Normal NEGATIVE [facility] Comment on above: Performed By: #### R SV, INFLUAB ####[facility] Plfmyfduah[address] [place], [place] [address]Dr. Swathi Reis BNPon 07-12-2022 Natriuretic peptide B (Bld) [Mass/Vol] 5375.0 pg/mL Critically high <=1,800.0 [facility] Comment on above: Performed By: #### B MEDICAL OFFICE ASSISTANT, CMP ####[facility] Sbgzrxgcgy[address] [place], [place] [address]Dr. Swathi Reis CBC AUTO DIFFon 07-12-2022 BASO # 0.1 103/ul Normal 0.0-0.1 [facility] Comment on above: Performed By: #### C BC ####[facility] Tsslkpfjaq[address] [place], [place] [address]Dr. Swathi Reis Basophils/100 WBC (Bld) 0.7 % Normal 0.2-2.0 [facility] Comment on above: Performed By: #### C BC ####[facility] Hfolinrndq[address] [place], [place] [address]Dr. Swathi Reis EO # 0.3 103/ul Normal 0.0-0.7 [facility] Comment on above: Performed By: #### C BC ####[facility] Nljjwhgzku[address] [place], [place] [address]Dr. Swathi Reis Eosinophils/100 WBC (Bld) 3.2 % Normal 0.9-7.0 [facility] Comment on above: Performed By: #### C BC ####[facility] Dnbpgfztnd01[address] [place], [place] [address]Dr. Swathi Reis Erythrocyte distribution width (RBC) [Ratio] 13.3 % Normal 11.0-15.0 [facility] Comment on above: Performed By: #### C BC ####[facility] Zgrajrnhuo[address] [place], [place] [address]Dr. Swathi Reis Hematocrit (Bld) [Volume fraction] 29.9 % Critically low 36.0-48.0 [facility] Comment on above: Performed By: #### C BC ####[facility] [address]ex[address] [place] [address]DrOtto Reis Hemoglobin (Bld) [Mass/Vol] 9.7 g/dL Critically low 12.0-16.0 [facility] Comment on above: Performed By: #### C BC ####[facility] Odkygllfqt[address] [place] [address]DrOtto Reis IG # 0.05 10e3/ul Critically high 0.00-0.03 [facility] Comment on above: Performed By: #### C BC ####[facility] Xltjiqqfzn76[address] [place] [address]DrOtto Reis IG % 0.5 % Normal 0.0-0.5 [facility] Comment on above: Performed By: #### C BC ####[facility] Erosuwmphq[address] [place], [place] [address]DrOtto Reis LYMPH # 1.5 103/ul Normal 1.2-3.8 [facility] Comment on above: Performed By: #### C BC ####[facility] Fpdngycrxe[address] [place] [address]DrOtto Reis Lymphocytes/100 WBC (Bld) 14.0 % Critically low 20.5-60.0 [facility] Comment on above: Performed By: #### C BC ####[facility] Ro[address]vdbygsa[address] [place] [address]DrOtto Reis MANUAL DIFF REQ NO Normal [facility] Comment on above: Performed By: #### C BC ####[facility] [address] [place] [id number] Reis MCH (RBC) [Entitic mass] 30.1 pg Normal 26.7-34.0 [facility] Comment on above: Performed By: #### C BC ####[facility] [address] [place] [id number] Reis MCHC (RBC) [Mass/Vol] 32.4 g/dL Normal 29.9-35.2 [facility] Comment on above: Performed By: #### C BC ####[facility] Lqxrlmothj[address] [place] [id number] Swathi Chato MCV (RBC) [Entitic vol] 92.9 fL Normal 81.0-99.0 [facility] Comment on above: Performed By: #### C BC ####[facility] L[address]agsgiscy[address] [place] [address]DrOtto Reis MONO # 1.2 103/ul Critically high 0.3-0.8 [facility] Comment on above: Performed By: #### C BC ####[facility] Cvxljvnqgj1254 [place] [address]DrOtto Reis Monocytes/100 WBC (Bld) 11.1 % Normal 1.7-12.0 [facility] Comment on above: Performed By: #### C BC ####[facility] Yiusvrkhtb[address] [place], [place] [address]DrOtto Reis NEUT # 7.5 103/ul Critically high 1.4-6.5 [facility] Comment on above: Performed By: #### C BC ####[facility] Wuontqcxyd[address] [place], [place] [address]DrOtto Reis Neutrophils/100 WBC (Bld) 70.5 % Normal 43.0-75.0 [facility] Comment on above: Performed By: #### C BC ####[facility] Qqnjqiwpbj[address] [place], [place] [address]DrOtto Reis Platelet mean volume (Bld) [Entitic vol] 10.7 fL Normal 9.5-13.5 [facility] Comment on above: Performed By: #### C BC ####[facility] Osdbzlkivl[address] [place], [place] [address]DrOtto Reis PLT 291 103/ul Normal 150-450 [facility] Comment on above: Performed By: #### C BC ####[facility] Ot[address]fewocp[address] [place] [id number] Reis RBC 3.22 106/ul Critically low 4.20-5.40 [facility] Comment on above: Performed By: #### C BC ####[facility] Vyjpatjdrm[address] [place] [address]Dr. Swathi Reis WBC 10.6 103/ul Normal 4.0-11.0 [facility] Comment on above: Performed By: #### C BC ####[facility] Xcaxvydwaq24[address] [place] [address]Dr. Swathi Reis POINT OF CARE GLUCOSEon 06-24 0-2021 Glucose [Mass/Vol] 191 mg/dL Critically high 74-106 [facility] Comment on above: Performed By: #### P OCGLUC ####[facility] Fvrmfczyon[address] [place], [place] [address]Dr. Swathi Reis PROF 14(COMP METB)on 022 Albumin [Mass/Vol] 2.4 g/dL Critically low 3.4-5.0 [facility] Comment on above: Performed By: #### B MEDICAL OFFICE ASSISTANT, CMP ####[facility] Czyqewqtzx184[address] [place], [place] [address]Dr. Swathi Reis Albumin/Globulin [Mass ratio] 0.6 {ratio} Normal [facility] Comment on above: Performed By: #### B MEDICAL OFFICE ASSISTANT, CMP ####[facility] Hrzxtlzrpp[address] [place], [place] [address]Dr. Swathi Reis ALP [Catalytic activity/Vol] 73 U/L Normal 46-116 [facility] Comment on above: Performed By: #### B MEDICAL OFFICE ASSISTANT, CMP ####[facility] Vievdtvczv78[address] [place] [address]Dr. Swathi Reis ALT [Catalytic activity/Vol] 11 U/L Critically low 14-59 [facility] Comment on above: Performed By: #### B MEDICAL OFFICE ASSISTANT, CMP ####[facility] Pzrhkljqsb84[address] [place], [place] [address]Dr. Swathi Reis Anion gap [Moles/Vol] 7.7 mmol/L Normal [facility] Comment on above: Performed By: #### B MEDICAL OFFICE ASSISTANT, CMP ####[facility] Ofihqjjgxn7418[address] [place], [place] [address]Dr. Swathi Reis AST [Catalytic activity/Vol] 15 U/L Normal 15-37 [facility] Comment on above: Performed By: #### B MEDICAL OFFICE ASSISTANT, CMP ####[facility] Ldnvuvgzdq[address] [place], [place] [address]Dr. Swathi Reis Bilirubin [Mass/Vol] 0.3 mg/dL Normal 0.2-1.0 [facility] Comment on above: Performed By: #### B MEDICAL OFFICE ASSISTANT, CMP ####[facility] Msiusmozbv3840[address] [place], [place] [address]Dr. Swathi Reis Calcium [Mass/Vol] 9.3 mg/dL Normal 8.5-10.1 [facility] Comment on above: Performed By: #### B MEDICAL OFFICE ASSISTANT, CMP ####[facility] Rnhbfajxls[address] [place], [place] [address]Dr. Swathi Reis Chloride [Moles/Vol] 104 mmol/L Normal 98-107 [facility] Comment on above: Performed By: #### B MEDICAL OFFICE ASSISTANT, CMP ####[facility] Lmkzjdpijg[address] [place], [place] [address]Dr. Swathi Reis CO2 [Moles/Vol] 30.2 mmol/L Normal 21.0-32.0 [facility] Comment on above: Performed By: #### B MEDICAL OFFICE ASSISTANT, CMP ####[facility] Yyygfgafrz389[address] [place], [place] [address]Dr. Swathi Reis Creatinine [Mass/Vol] 1.69 mg/dL Critically high 0.55-1.02 [facility] Comment on above: Performed By: #### B MEDICAL OFFICE ASSISTANT, CMP ####[facility] Ntrwsbmusn337[address] [place], [place] [address]Dr. Swathi Reis EGFR-AF RWANDAN 36 mL/min/1.73m2 Critically low >=60 [facility] Comment on above: Performed By: #### B MEDICAL OFFICE ASSISTANT, CMP ####[facility] Frsqbaoepy[address] [place], [place] [address]Dr. Swathi Reis EGFR-NON AF RWANDAN 29 mL/min/1.73m2 Critically low >=60 [facility] Comment on above: Performed By: #### B MEDICAL OFFICE ASSISTANT, CMP ####[facility] Ucpezfejnb6024[address] [place], [place] [address]Dr. Swathi Reis Globulin (S) [Mass/Vol] 4.0 g/dL Normal [facility] Comment on above: Performed By: #### B MEDICAL OFFICE ASSISTANT, CMP ####[facility] Svcnlaippg66[address] [place], [place] [address]Dr. Swathi Reis Glucose [Mass/Vol] 110 mg/dL Critically high 74-106 [facility] Comment on above: Performed By: #### B MEDICAL OFFICE ASSISTANT, CMP ####[facility] Ktjgnhmodu[address] [place], [place] [address]Dr. Swathi Reis Potassium [Moles/Vol] 3.9 mmol/L Normal 3.5-5.1 [facility] Comment on above: Performed By: #### B MEDICAL OFFICE ASSISTANT, CMP ####[facility] Ruwpethdvz[address] [place], [place] [address]Dr. Swathi Reis Protein [Mass/Vol] 6.4 g/dL Normal 6.4-8.2 [facility] Comment on above: Performed By: #### B MEDICAL OFFICE ASSISTANT, CMP ####[facility] Dlzttufnsw[address] [place], [place] [address]Dr. Swathi Reis Sodium [Moles/Vol] 138 mmol/L Normal 136-145 [facility] Comment on above: Performed By: #### B MEDICAL OFFICE ASSISTANT, CMP ####[facility] Sempfppbqz387[address] [place], [place] [address]Dr. Swathi Reis Urea nitrogen [Mass/Vol] 21.0 mg/dL Critically high 7.0-18.0 [facility] Comment on above: Performed By: #### B MEDICAL OFFICE ASSISTANT, CMP ####[facility] Hkiyczyaac[address] [place], [place] [address]Dr. Swathi Reis Urea nitrogen/Creatinine [Mass ratio] 12.4 mg/mg Normal [facility] Comment on above: Performed By: #### B MEDICAL OFFICE ASSISTANT, CMP ####[facility] Mblgortnnz[address] [place], [place] [address]Dr. Swathi Reis BNPon 07-11-2022 Natriuretic peptide B (Bld) [Mass/Vol] 2516.0 pg/mL Critically high <=1,800.0 [facility] Comment on above: Performed By: #### B MEDICAL OFFICE ASSISTANT, CMP ####[facility] Tqzkvmwqsm[address] [place], [place] [address]Dr. Swathi Reis C. DIFF PCRon 07-11-2022 C. DIFFICILE PCR Positive Critically abnormal NEGATIVE [facility] Comment on above: Performed By: #### C DIFPOC ####[facility] Qbgrvjyffc[address] [place], [place] [address]Dr. Swathi Reis CBC AUTO DIFFon 07-11-2022 BASO # 0.0 103/ul Normal 0.0-0.1 [facility] Comment on above: Performed By: #### C BC ####[facility] Gdqzcpxvac[address] [place], [place] [address]Dr. Swathi Reis Basophils/100 WBC (Bld) 0.4 % Normal 0.2-2.0 [facility] Comment on above: Performed By: #### C BC ####[facility] Vofogjvygb[address] [place], [place] [address]Dr. Swathi Reis EO # 0.2 103/ul Normal 0.0-0.7 [facility] Comment on above: Performed By: #### C BC ####[facility] Qxhsmnoknh94[address] [place], [place] [address]Dr. Swathi Reis Eosinophils/100 WBC (Bld) 2.2 % Normal 0.9-7.0 [facility] Comment on above: Performed By: #### C BC ####[facility] Dqwxkaynal11[address] [place], [place] [address]Dr. Swathi Reis Erythrocyte distribution width (RBC) [Ratio] 13.4 % Normal 11.0-15.0 [facility] Comment on above: Performed By: #### C BC ####[facility] Ckrqlijjcl[address] [place], [place] [address]Dr. Swathi Reis Hematocrit (Bld) [Volume fraction] 27.0 % Critically low 36.0-48.0 [facility] Comment on above: Performed By: #### C BC ####[facility] Qermifuzmp[address] [place] [address]Dr. Swathi Reis Hemoglobin (Bld) [Mass/Vol] 8.5 g/dL Critically low 12.0-16.0 [facility] Comment on above: Performed By: #### C BC ####[facility] [address]srkqatnuj22[address] [place] [id number]. Swathi Reis IG # 0.07 10e3/ul Critically high 0.00-0.03 [facility] Comment on above: Performed By: #### C BC ####[facility] Fooqdeimrf59[address] [place] [address]Dr. Swathi Reis IG % 0.6 % Critically high 0.0-0.5 [facility] Comment on above: Performed By: #### C BC ####[facility] Oavghjyygs[address] [place] [address]Dr. Swathi Reis LYMPH # 1.2 103/ul Normal 1.2-3.8 [facility] Comment on above: Performed By: #### C BC ####[facility] Hlsdakpgwe70[address] [place] [address]Dr. Swathi Reis Lymphocytes/100 WBC (Bld) 10.5 % Critically low 20.5-60.0 [facility] Comment on above: Performed By: #### C BC ####[facility] [address]zqyjuvj[address] [place] [address]Dr. Swathi Reis MANUAL DIFF REQ NO Normal [facility] Comment on above: Performed By: #### C BC ####[facility] Isgxnbbcnm64[address] [place] [address]Dr. Swathi Reis MCH (RBC) [Entitic mass] 29.6 pg Normal 26.7-34.0 [facility] Comment on above: Performed By: #### C BC ####[facility] Wnogfuawcs[address] [place], [place] [address]Dr. Swathi Reis MCHC (RBC) [Mass/Vol] 31.5 g/dL Normal 29.9-35.2 [facility] Comment on above: Performed By: #### C BC ####[facility] [address]ibormkf[address] [place] [address]Dr. Swathi Reis MCV (RBC) [Entitic vol] 94.1 fL Normal 81.0-99.0 [facility] Comment on above: Performed By: #### C BC ####[facility] Tilwaljbzu[address] [place] [address]Dr. Swathi Reis MONO # 1.1 103/ul Critically high 0.3-0.8 [facility] Comment on above: Performed By: #### C BC ####[facility] Rkrghmrioz[address] [place], [place] [address]Dr. Swathi Reis Monocytes/100 WBC (Bld) 9.9 % Normal 1.7-12.0 [facility] Comment on above: Performed By: #### C BC ####[facility] Hthfmiqgho[address] [place], [place] [address]Dr. Swathi Reis NEUT # 8.4 103/ul Critically high 1.4-6.5 [facility] Comment on above: Performed By: #### C BC ####[facility] Nnwzjfkfgg[address] [place], [place] [address]Dr. Swathi Reis Neutrophils/100 WBC (Bld) 76.4 % Critically high 43.0-75.0 [facility] Comment on above: Performed By: #### C BC ####[facility] Whhrxgrsgg[address] [place], [place] [address]Dr. Swathi Reis Platelet mean volume (Bld) [Entitic vol] 10.6 fL Normal 9.5-13.5 [facility] Comment on above: Performed By: #### C BC ####[facility] [address]ib[address] [place], [place] [id number]. Swathi Reis PLT 248 103/ul Normal 150-450 [facility] Comment on above: Performed By: #### C BC ####[facility] Zlmmtyusvh[address] [place], [place] [address]Dr. Swathi Reis RBC 2.87 106/ul Critically low 4.20-5.40 [facility] Comment on above: Performed By: #### C BC ####[facility] Ptcoazzykd[address] [place], [place] [address]Dr. Swathi Reis WBC 11.0 103/ul Normal 4.0-11.0 [facility] Comment on above: Performed By: #### C BC ####[facility] Kxwlsmmaoo[address] [place], [place] [address]Dr. Swathi Reis GI PANEL (PCR)on 07-11-2022 Adenovirus F 40/41 Not detected Normal NOT DETECTED [facility] Comment on above: Performed By: #### G IPANEL ####[facility] Dfkbakiobr05[address] [place], [place] [address]Dr. Swathi Reis Astrovirus Not detected Normal NOT DETECTED [facility] Comment on above: Performed By: #### G IPANEL ####[facility] Lzuomiymei[address] [place], [place] [address]Dr. Swathi Reis C. Diff toxin A/B Detected Critically abnormal NOT DETECTED [facility] Comment on above: Performed By: #### G IPANEL ####[facility] Jyngoeinvl[address] [place], [place] [address]Dr. Swathi Reis Campylobacter Not detected Normal NOT DETECTED [facility] Comment on above: Performed By: #### G IPANEL ####[facility] Afkgwhktyv[address] [place], [place] [address]Dr. Inessatracy Reis Cryptosporidium Not detected Normal NOT DETECTED [facility] Comment on above: Performed By: #### G IPANEL ####[facility] Hefmrurvfd84[address] [place], [place] [address]Dr. Swathi Reis Cyclos. Cayetanensis Not detected Normal NOT DETECTED [facility] Comment on above: Performed By: #### G IPANEL ####[facility] Pmjqraexur[address] [place], [place] [address]Dr. Swathi Reis E. Coli O157 Not Applicable Normal Not Applicable [facility] Comment on above: Performed By: #### G IPANEL ####[facility] Ngwjkykuqd19[address] [place], [place] [address]Dr. Inessatracy Reis E. histolytica Not detected Normal NOT DETECTED [facility] Comment on above: Performed By: #### G IPANEL ####[facility] Ykwlhhfouf[address] [place] [address]Dr. Swathi Reis EAEC Not detected Normal NOT DETECTED [facility] Comment on above: Performed By: #### G IPANEL ####[facility] Mroptfmmmc[address] [place], [place] [address]Dr. Swathi Reis EIEC Not detected Normal NOT DETECTED [facility] Comment on above: Performed By: #### G IPANEL ####[facility] Jzumblxuwm[address] [place], [place] [address]Dr. Swathi Reis EPEC Not detected Normal NOT DETECTED [facility] Comment on above: Performed By: #### G IPANEL ####[facility] [address]mdbqtemgw[address] [place], [place] [address]Dr. Swathi Reis ETEC Not detected Normal NOT DETECTED [facility] Comment on above: Performed By: #### G IPANEL ####[facility] Mqpvcpbpwo[address] [place], [place] [address]Dr. Swathi Reis G. Lamblia Not detected Normal NOT DETECTED [facility] Comment on above: Performed By: #### G IPANEL ####[facility] Ikqgmbjwox[address] [place], [place] [address]Dr. Swathi Reis GIPANEL CONTROLS PASSED Normal [facility] Comment on above: Performed By: #### G IPANEL ####[facility] Opptismujy72[address] [place], [place] [address]Dr. Swathi Reis GIPNL RICHELLE HEADER GI PANEL BACTERIA Normal [facility] Comment on above: Performed By: #### G IPANEL ####[facility] Usexxgifst9[address] [place], [place] [address]Dr. Swathi Reis GIPNLHD ECOLI GI PANEL DIARRHEAGEN IC E.COLI / SHIGELLA Normal [facility] Comment on above: Performed By: #### G IPANEL ####[facility] Eylphsgljd7[address] [place], [place] [address]Dr. Swathi Reis GIPNLHD INFO SEE BELOW Normal [facility] Comment on above: Result Comment: EAEC - Enteroaggregative E. Coli EPEC- Enteropathogenic E. Coli ETEC- Enterotoxigenic E. Coli lt/st STEC- Shigella-like toxin-producing E. Coli stx1/stx2 EIEC- Shigella/Enteroinvasive E. Coli Performed By: #### G IPANEL ####[facility] Zbfbabfbdp8024[address] [place], [place] [address]Dr. Swathi Reis GIPNLHD PARASITES GI PANEL PARASITES Normal [facility] Comment on above: Performed By: #### G IPANEL ####[facility] Hcmhryocxl20[address] [place], [place] [address]Dr. Inessatracy Reis GIPNLHD VIRUS GI PANEL VIRUSES Normal [facility] Comment on above: Performed By: #### G IPANEL ####[facility] Ivksmfqivd[address] [place], [place] [address]Dr. Swathi Reis Norovirus GI/GII Not detected Normal NOT DETECTED [facility] Comment on above: Performed By: #### G IPANEL ####[facility] Gbzhciwinh[address] [place], [place] [address]Dr. Swathi Reis P. Shigelloides Not detected Normal NOT DETECTED [facility] Comment on above: Performed By: #### G IPANEL ####[facility] Bbuimjoajq786[address] [place], [place] [address]Dr. Swathi Reis Rotavirus A Not detected Normal NOT DETECTED [facility] Comment on above: Performed By: #### G IPANEL ####[facility] Tkjlwotxgn2639[address] [place], [place] [address]Dr. Swathi Reis Salmonella Not detected Normal NOT DETECTED [facility] Comment on above: Performed By: #### G IPANEL ####[facility] Hyktylolmv[address] [place], [place] [address]Dr. Swathi Reis Sapovirus Not detected Normal NOT DETECTED [facility] Comment on above: Performed By: #### G IPANEL ####[facility] Qlqedwrfkv2905[address] [place], [place] [address]Dr. Swathi Reis STEC Detected Critically abnormal NOT DETECTED [facility] Comment on above: Performed By: #### G IPANEL ####[facility] Tomgzfkpky5[address] [place], [place] [address]Dr. Swathi Reis Vibrio Not detected Normal NOT DETECTED [facility] Comment on above: Performed By: #### G IPANEL ####[facility] [address] [place] [address]Dr. Swathi Reis Vibrio Cholera Not detected Normal NOT DETECTED [facility] Comment on above: Performed By: #### G IPANEL ####[facility] Jxiqlzimdm4[address] [place] [address]Dr. Swathi Reis Y. Enterocolitica Not detected Normal NOT DETECTED [facility] Comment on above: Performed By: #### G IPANEL ####[facility] Rrwlzlrneh[address] [place] [address]Dr. Swathi Reis POINT OF CARE GLUCOSEon 06-23 Glucose [Mass/Vol] 120 mg/dL Critically high 74-106 [facility] Comment on above: Performed By: #### P OCGLUC ####[facility] Mgftlbovjl74[address] [place], [place] [address]Dr. Swathi Reis Glucose [Mass/Vol] 193 mg/dL Critically high 74-106 [facility] Comment on above: Performed By: #### P OCGLUC ####[facility] Fymstbmdtu[address] [place], [place] [address]Dr. Swathi Reis PROF 14(COMP METB)on 022 Albumin [Mass/Vol] 2.4 g/dL Critically low 3.4-5.0 [facility] Comment on above: Performed By: #### B MEDICAL OFFICE ASSISTANT, CMP ####[facility] Pykhtkeunr57[address] [place], [place] [address]Dr. Swathi Reis Albumin/Globulin [Mass ratio] 0.7 {ratio} Normal [facility] Comment on above: Performed By: #### B MEDICAL OFFICE ASSISTANT, CMP ####[facility] Qpaxxjofnf157[address] [place], [place] [address]Dr. Swathi Reis ALP [Catalytic activity/Vol] 70 U/L Normal 46-116 [facility] Comment on above: Performed By: #### B MEDICAL OFFICE ASSISTANT, CMP ####[facility] Zhhtbyomyi[address] [place] [address]Dr. Swathi Reis ALT [Catalytic activity/Vol] 12 U/L Critically low 14-59 [facility] Comment on above: Performed By: #### B MEDICAL OFFICE ASSISTANT, CMP ####[facility] [address]zr[address] [place] [id number]. Swathi Reis Anion gap [Moles/Vol] 8.7 mmol/L Normal [facility] Comment on above: Performed By: #### B MEDICAL OFFICE ASSISTANT, CMP ####[facility] Ktpisayxet59[address] [place] [address]Dr. Swathi Reis AST [Catalytic activity/Vol] 11 U/L Critically low 15-37 [facility] Comment on above: Performed By: #### B MEDICAL OFFICE ASSISTANT, CMP ####[facility] Pjuftjjzyb34[address] [place] [address]Dr. Swathi Reis Bilirubin [Mass/Vol] 0.3 mg/dL Normal 0.2-1.0 [facility] Comment on above: Performed By: #### B MEDICAL OFFICE ASSISTANT, CMP ####[facility] Pvnpsqrprt158[address] [place], [place] [address]Dr. Swathi Reis Calcium [Mass/Vol] 9.1 mg/dL Normal 8.5-10.1 [facility] Comment on above: Performed By: #### B MEDICAL OFFICE ASSISTANT, CMP ####[facility] Gahwjikrpg9995[address] [place], [place] [address]Dr. Swathi Chato Chloride [Moles/Vol] 107 mmol/L Normal 98-107 [facility] Comment on above: Performed By: #### B MEDICAL OFFICE ASSISTANT, CMP ####[facility] Yvpxmsrbvy540[address] [place], [place] [address]Dr. Swathi Reis CO2 [Moles/Vol] 27.6 mmol/L Normal 21.0-32.0 [facility] Comment on above: Performed By: #### B MEDICAL OFFICE ASSISTANT, CMP ####[facility] Ycngbxxvio649[address] [place], [place] [address]Dr. Swathi Reis Creatinine [Mass/Vol] 1.72 mg/dL Critically high 0.55-1.02 [facility] Comment on above: Performed By: #### B MEDICAL OFFICE ASSISTANT, CMP ####[facility] Yhmonimpqb3925[address] [place], [place] [address]Dr. Swathi Chato EGFR-AF RWANDAN 35 mL/min/1.73m2 Critically low >=60 [facility] Comment on above: Performed By: #### B MEDICAL OFFICE ASSISTANT, CMP ####[facility] Vhmighviwi5510[address] [place], [place] [address]Dr. Swathi Reis EGFR-NON AF RWANDAN 29 mL/min/1.73m2 Critically low >=60 [facility] Comment on above: Performed By: #### B MEDICAL OFFICE ASSISTANT, CMP ####[facility] Wyewgxbgxp776[address] [place], [place] [address]Dr. Swathi Chato Globulin (S) [Mass/Vol] 3.6 g/dL Normal [facility] Comment on above: Performed By: #### B MEDICAL OFFICE ASSISTANT, CMP ####[facility] Iwybsgcqwr889[address] [place], [place] [address]Dr. Inessatracy Chato Glucose [Mass/Vol] 119 mg/dL Critically high 74-106 [facility] Comment on above: Performed By: #### B MEDICAL OFFICE ASSISTANT, CMP ####[facility] Cmumqkuzyg332[address] [place], [place] [address]Dr. Swathi Chato Potassium [Moles/Vol] 4.3 mmol/L Normal 3.5-5.1 [facility] Comment on above: Performed By: #### B MEDICAL OFFICE ASSISTANT, CMP ####[facility] Jpdxcvheke532[address] [place], [place] [address]Dr. Swathi Chato Protein [Mass/Vol] 6.0 g/dL Critically low 6.4-8.2 Th [facility] Comment on above: Performed By: #### B MEDICAL OFFICE ASSISTANT, CMP ####[facility] Okczryobws1915[address] [place], [place] [address]Dr. Swathi Chato Sodium [Moles/Vol] 139 mmol/L Normal 136-145 [facility] Comment on above: Performed By: #### B MEDICAL OFFICE ASSISTANT, CMP ####[facility] Hqqcczfnex3969[address] [place], [place] [address]Dr. Swathi Chato Urea nitrogen [Mass/Vol] 23.0 mg/dL Critically high 7.0-18.0 [facility] Comment on above: Performed By: #### B MEDICAL OFFICE ASSISTANT, CMP ####[facility] Soqzswancf[address] [place], [place] [id number]. Inessatracy Reis Urea nitrogen/Creatinine [Mass ratio] 13.4 mg/mg Normal [facility] Comment on above: Performed By: #### B MEDICAL OFFICE ASSISTANT, CMP ####[facility] Dxsnusaurz0510[address] [place], [place] [address]Dr. Swathi Reis BNPon 07-10-2022 Natriuretic peptide B (Bld) [Mass/Vol] 2243.0 pg/mL Critically high <=1,800.0 [facility] Comment on above: Performed By: #### B MEDICAL OFFICE ASSISTANT, CMP ####[facility] Cmxxevurco6960[address] [place], [place] [address]Dr. Swathi Chato CBC AUTO DIFFon 07-10-2022 BASO # 0.1 103/ul Normal 0.0-0.1 [facility] Comment on above: Performed By: #### C BC ####[facility] Phtjhywqdr9[address] [place], [place] [address]Dr. Swathi Reis Basophils/100 WBC (Bld) 0.7 % Normal 0.2-2.0 [facility] Comment on above: Performed By: #### C BC ####[facility] Yidyrwtbzn115[address] [place], [place] [address]Dr. Swathi Reis EO # 0.2 103/ul Normal 0.0-0.7 [facility] Comment on above: Performed By: #### C BC ####[facility] Tjndssanwx934[address] [place], [place] [address]Dr. Swathi Reis Eosinophils/100 WBC (Bld) 2.1 % Normal 0.9-7.0 [facility] Comment on above: Performed By: #### C BC ####[facility] Mqngywqwri53[address] [place], [place] [address]Dr. Swathi Reis Erythrocyte distribution width (RBC) [Ratio] 13.5 % Normal 11.0-15.0 [facility] Comment on above: Performed By: #### C BC ####[facility] Xpketrsyfz8437[address] [place], [place] [address]Dr. Swathi Reis Hematocrit (Bld) [Volume fraction] 36.6 % Normal 36.0-48.0 [facility] Comment on above: Performed By: #### C BC ####[facility] Embdoiujdp[address] [place] [address]Dr. Swathi Reis Hemoglobin (Bld) [Mass/Vol] 11.3 g/dL Critically low 12.0-16.0 [facility] Comment on above: Performed By: #### C BC ####[facility] Cztjsnjxqb[address] [place] [address]Dr. Swathi Reis IG # 0.03 10e3/ul Normal 0.00-0.03 [facility] Comment on above: Performed By: #### C BC ####[facility] Wrkjvaqnuj7[address] [place] [address]Dr. Swathi Reis IG % 0.4 % Normal 0.0-0.5 [facility] Comment on above: Performed By: #### C BC ####[facility] M[address]obrhlhr[address] [place] [address]Dr. Swathi Reis LYMPH # 0.8 103/ul Critically low 1.2-3.8 [facility] Comment on above: Performed By: #### C BC ####[facility] Zhuxmxefry[address] [place] [address]Dr. Swathi Reis Lymphocytes/100 WBC (Bld) 10.3 % Critically low 20.5-60.0 [facility] Comment on above: Performed By: #### C BC ####[facility] Rnztdjienx[address] [place] [address]Dr. Swathi Reis MANUAL DIFF REQ NO Normal [facility] Comment on above: Performed By: #### C BC ####[facility] Zlpascaxin[address] [place] [address]Dr. Swathi Reis MCH (RBC) [Entitic mass] 29.1 pg Normal 26.7-34.0 [facility] Comment on above: Performed By: #### C BC ####[facility] Mnxurexouo[address] [place] [address]Dr. Swathi Reis MCHC (RBC) [Mass/Vol] 30.9 g/dL Normal 29.9-35.2 [facility] Comment on above: Performed By: #### C BC ####[facility] [address]qvorgnzn[address] [place] [id number]. Swathi Reis MCV (RBC) [Entitic vol] 94.3 fL Normal 81.0-99.0 [facility] Comment on above: Performed By: #### C BC ####[facility] Pqzxbytctp[address] [place] [address]Dr. Swathi Reis MONO # 0.7 103/ul Normal 0.3-0.8 [facility] Comment on above: Performed By: #### C BC ####[facility] Pocdmcopqm[address] [place] [address]Dr. Swathi Reis Monocytes/100 WBC (Bld) 10.2 % Normal 1.7-12.0 [facility] Comment on above: Performed By: #### C BC ####[facility] Jtmpfyfgqt[address] [place], [place] [address]Dr. Swathi Reis NEUT # 5.5 103/ul Normal 1.4-6.5 [facility] Comment on above: Performed By: #### C BC ####[facility] Gllimgtemu[address] [place] [address]Dr. Swathi Chato Neutrophils/100 WBC (Bld) 76.3 % Critically high 43.0-75.0 [facility] Comment on above: Performed By: #### C BC ####[facility] Fisdxsftjo4[address] [place], [place] [id number]. Swathi Chato Platelet mean volume (Bld) [Entitic vol] 10.6 fL Normal 9.5-13.5 [facility] Comment on above: Performed By: #### C BC ####[facility] Hpuvxvxgwa[address] [place], [place] [id number]. Swathi Reis PLT 212 103/ul Normal 150-450 [facility] Comment on above: Performed By: #### C BC ####[facility] Fsjyscmkan[address] [place] [address]Dr. Swathi Reis RBC 3.88 106/ul Critically low 4.20-5.40 [facility] Comment on above: Performed By: #### C BC ####[facility] Ewydcnpiku[address] [place] [address]Dr. Swathi Reis WBC 7.3 103/ul Normal 4.0-11.0 [facility] Comment on above: Performed By: #### C BC ####[facility] Djpqkbodwy[address] [place] [id number]. Swathi Chato POINT OF CARE GLUCOSEon 06-23 Glucose [Mass/Vol] 171 mg/dL Critically high [address] [place] [address] Comment on above: Performed By: #### P OCGLUC ####[facility] [address]jnyvfnvm[address] [place] [address]Dr. Swathi Reis Glucose [Mass/Vol] 162 mg/dL Critically high [address] [place] [address] Comment on above: Performed By: #### P OCGLUC ####[facility] Ezkzvyuiiv38[address] [place] [address]Dr. Swathi Chato Glucose [Mass/Vol] 176 mg/dL Critically high [address] [place] [address] Comment on above: Performed By: #### P OCGLUC ####[facility] Ubijhcnspd72[address] [place] [address]Dr. Swathi Reis Glucose [Mass/Vol] 140 mg/dL Critically high [address] [place] [address] Comment on above: Performed By: #### P OCGLUC ####[facility] Bkbryortez1086 [place] [address]Dr. Swathi Reis Glucose [Mass/Vol] 37 mg/dL Critically low 74-106 [facility] Comment on above: Result Comment: Will Repeat Test Performed By: #### P OCGLUC ####[facility] Bwxntbysew654[address] [place], [place] [address]Dr. Swathi Reis PROF 14(COMP METB)on 022 Albumin [Mass/Vol] 2.5 g/dL Critically low 3.4-5.0 [facility] Comment on above: Performed By: #### B MEDICAL OFFICE ASSISTANT, CMP ####[facility] Sseotezwmz5417[address] [place], [place] [address]Dr. Swathi Reis Albumin/Globulin [Mass ratio] 0.7 {ratio} Normal [facility] Comment on above: Performed By: #### B MEDICAL OFFICE ASSISTANT, CMP ####[facility] Uyfpoepkra[address] [place] [address]Dr. Swathi Chato ALP [Catalytic activity/Vol] 71 U/L Normal 46-116 [facility] Comment on above: Performed By: #### B MEDICAL OFFICE ASSISTANT, CMP ####[facility] Gszxkzlkoi80[address] [place], [place] [address]Dr. Swathi Reis ALT [Catalytic activity/Vol] 12 U/L Critically low 14-59 [facility] Comment on above: Performed By: #### B MEDICAL OFFICE ASSISTANT, CMP ####[facility] Nfovybfrld[address] [place], [place] [address]Dr. Swathi Reis Anion gap [Moles/Vol] 10.1 mmol/L Normal [facility] Comment on above: Performed By: #### B MEDICAL OFFICE ASSISTANT, CMP ####[facility] Kfrefttsin[address] [place], [place] [address]Dr. Swathi Reis AST [Catalytic activity/Vol] 11 U/L Critically low 15-37 [facility] Comment on above: Performed By: #### B MEDICAL OFFICE ASSISTANT, CMP ####[facility] Iplhuugcop117[address] [place], [place] [address]Dr. Swathi Reis Bilirubin [Mass/Vol] 0.4 mg/dL Normal 0.2-1.0 [facility] Comment on above: Performed By: #### B MEDICAL OFFICE ASSISTANT, CMP ####[facility] Sjktibbjjk[address] [place], [place] [address]Dr. Swathi Reis Calcium [Mass/Vol] 9.0 mg/dL Normal 8.5-10.1 [facility] Comment on above: Performed By: #### B MEDICAL OFFICE ASSISTANT, CMP ####[facility] Ogtbfgaurk[address] [place], [place] [address]Dr. Swathi Reis Chloride [Moles/Vol] 107 mmol/L Normal 98-107 [facility] Comment on above: Performed By: #### B MEDICAL OFFICE ASSISTANT, CMP ####[facility] Bzvfkkjvvu168[address] [place], [place] [address]Dr. Swathi Reis CO2 [Moles/Vol] 28.9 mmol/L Normal 21.0-32.0 [facility] Comment on above: Performed By: #### B MEDICAL OFFICE ASSISTANT, CMP ####[facility] Kdvxuvtyja9[address] [place], [place] [address]Dr. Swathi Reis Creatinine [Mass/Vol] 2.01 mg/dL Critically high 0.55-1.02 [facility] Comment on above: Performed By: #### B MEDICAL OFFICE ASSISTANT, CMP ####[facility] Izjaflmjld[address] [place], [place] [address]Dr. Swathi Reis EGFR-AF RWANDAN 29 mL/min/1.73m2 Critically low >=60 [facility] Comment on above: Performed By: #### B MEDICAL OFFICE ASSISTANT, CMP ####[facility] Hzlurkthbm3826[address] [place], [place] [address]Dr. Swathi Reis EGFR-NON AF RWANDAN 24 mL/min/1.73m2 Critically low >=60 [facility] Comment on above: Performed By: #### B MEDICAL OFFICE ASSISTANT, CMP ####[facility] Yemvczzrbs[address] [place], [place] [address]Dr. Swathi Chato Globulin (S) [Mass/Vol] 3.6 g/dL Normal [facility] Comment on above: Performed By: #### B MEDICAL OFFICE ASSISTANT, CMP ####[facility] Kfvpouyhed[address] [place], [place] [address]Dr. Swathi Reis Glucose [Mass/Vol] 123 mg/dL Critically high 74-106 [facility] Comment on above: Performed By: #### B MEDICAL OFFICE ASSISTANT, CMP ####[facility] Vhljoxdyen[address] [place], [place] [address]Dr. Swathi Reis Potassium [Moles/Vol] 4.0 mmol/L Normal 3.5-5.1 [facility] Comment on above: Performed By: #### B MEDICAL OFFICE ASSISTANT, CMP ####[facility] Hycopcwbjc1740[address] [place], [place] [address]Dr. Swathi Reis Protein [Mass/Vol] 6.1 g/dL Critically low 6.4-8.2 Th [facility] Comment on above: Performed By: #### B MEDICAL OFFICE ASSISTANT, CMP ####[facility] Xqkjbfhhsd617[address] [place], [place] [address]Dr. Swathi Reis Sodium [Moles/Vol] 142 mmol/L Normal 136-145 [facility] Comment on above: Performed By: #### B MEDICAL OFFICE ASSISTANT, CMP ####[facility] Hxbrekcytw012[address] [place], [place] [address]Dr. Swathi Reis Urea nitrogen [Mass/Vol] 27.0 mg/dL Critically high 7.0-18.0 [facility] Comment on above: Performed By: #### B MEDICAL OFFICE ASSISTANT, CMP ####[facility] Oafliliqsh125[address] [place], [place] [address]Dr. Swathi Chato Urea nitrogen/Creatinine [Mass ratio] 13.4 mg/mg Normal [facility] Comment on above: Performed By: #### B MEDICAL OFFICE ASSISTANT, CMP ####[facility] Wpkvcowyou44[address] [place], [place] [address]Dr. Swathi Chato BNPon 07-09-2022 Natriuretic peptide B (Bld) [Mass/Vol] 5933.0 pg/mL Critically high <=1,800.0 [facility] Comment on above: Performed By: #### B MEDICAL OFFICE ASSISTANT, CMP ####[facility] Xonunpbjxz385[address] [place], [place] [address]Dr. Swathi Chato CBC AUTO DIFFon 07-09-2022 BASO # 0.1 103/ul Normal 0.0-0.1 [facility] Comment on above: Performed By: #### C BC ####[facility] Gvoapueymc[address] [place], [place] [address]Dr. Swathi Chato Basophils/100 WBC (Bld) 0.5 % Normal 0.2-2.0 [facility] Comment on above: Performed By: #### C BC ####[facility] Wafibkvegf[address] [place], [place] [address]Dr. Swathi Reis EO # 0.3 103/ul Normal 0.0-0.7 [facility] Comment on above: Performed By: #### C BC ####[facility] Kluwgqjjjg24[address] [place], [place] [address]Dr. Swathi Reis Eosinophils/100 WBC (Bld) 2.9 % Normal 0.9-7.0 [facility] Comment on above: Performed By: #### C BC ####[facility] Yoygjugfdr069[address] [place], [place] [address]Dr. Swathi Reis Erythrocyte distribution width (RBC) [Ratio] 13.4 % Normal 11.0-15.0 [facility] Comment on above: Performed By: #### C BC ####[facility] Cnaerrddbc395[address] [place], [place] [address]DrOtto Reis Hematocrit (Bld) [Volume fraction] 28.8 % Critically low 36.0-48.0 [facility] Comment on above: Performed By: #### C BC ####[facility] Xnjlmkbmia[address] [place], [place] [address]DrOtto Reis Hemoglobin (Bld) [Mass/Vol] 9.2 g/dL Critically low 12.0-16.0 [facility] Comment on above: Performed By: #### C BC ####[facility] Vbqcajfscz[address] [place], [place] [address]DrOtto Reis IG # 0.04 10e3/ul Critically high 0.00-0.03 [facility] Comment on above: Performed By: #### C BC ####[facility] Dwcvkwakjr[address] [place], [place] [address]DrOtto Reis IG % 0.4 % Normal 0.0-0.5 [facility] Comment on above: Performed By: #### C BC ####[facility] Zqfijtoqzy364[address] [place], [place] [address]DrOtto Reis LYMPH # 1.2 103/ul Normal 1.2-3.8 [facility] Comment on above: Performed By: #### C BC ####[facility] Yentjywuff10[address] [place], [place] [address]DrOtto Reis Lymphocytes/100 WBC (Bld) 10.9 % Critically low 20.5-60.0 [facility] Comment on above: Performed By: #### C BC ####[facility] Fjbcvhntmh[address] [place], [place] [address]DrOtto Reis MANUAL DIFF REQ NO Normal [facility] Comment on above: Performed By: #### C BC ####[facility] Tjejysbrlq4[address] [place] [id number] Reis MCH (RBC) [Entitic mass] 30.0 pg Normal 26.7-34.0 [facility] Comment on above: Performed By: #### C BC ####[facility] Hqrdmalumj7783 [place] [address]DrOtto Reis MCHC (RBC) [Mass/Vol] 31.9 g/dL Normal 29.9-35.2 [facility] Comment on above: Performed By: #### C BC ####[facility] Krvvntcvpv[address] [place], [place] [address]DrOtto Reis MCV (RBC) [Entitic vol] 93.8 fL Normal 81.0-99.0 [facility] Comment on above: Performed By: #### C BC ####[facility] Xcboclpiqf419[address] [place], [place] [address]DrOtto Reis MONO # 1.0 103/ul Critically high 0.3-0.8 [facility] Comment on above: Performed By: #### C BC ####[facility] Uqnfybtamc[address] [place], [place] [address]DrOtto Reis Monocytes/100 WBC (Bld) 9.6 % Normal 1.7-12.0 [facility] Comment on above: Performed By: #### C BC ####[facility] Kshvgbhcas[address] [place], [place] [address]DrOtto Reis NEUT # 8.0 103/ul Critically high 1.4-6.5 [facility] Comment on above: Performed By: #### C BC ####[facility] Dlqmaarhyf[address] [place], [place] [address]DrOtto Reis Neutrophils/100 WBC (Bld) 75.7 % Critically high 43.0-75.0 [facility] Comment on above: Performed By: #### C BC ####[facility] Wqkyhndhez[address] [place], [place] [address]DrOtto Reis Platelet mean volume (Bld) [Entitic vol] 10.6 fL Normal 9.5-13.5 [facility] Comment on above: Performed By: #### C BC ####[facility] Brirzgs[address]kl[address] [place] [id number]. Swathi eRis PLT 307 103/ul Normal 150-450 [facility] Comment on above: Performed By: #### C BC ####[facility] Kfbbqkxfku[address] [place] [address]Dr. Swathi Reis RBC 3.07 106/ul Critically low 4.20-5.40 [facility] Comment on above: Performed By: #### C BC ####[facility] Lypvfqmdyk96[address] [place] [address]Dr. Swathi Reis WBC 10.6 103/ul Normal 4.0-11.0 [facility] Comment on above: Performed By: #### C BC ####[facility] Qsakcrjael9[address] [place] [address]DrOtto Swathi Reis POINT OF CARE GLUCOSEon 06-23 Glucose [Mass/Vol] 168 mg/dL Critically high 74-106 [facility] Comment on above: Performed By: #### P OCGLUC ####[facility] Fkzynxrser[address] [place] [address]Dr. Swathi Reis Glucose [Mass/Vol] 136 mg/dL Critically high 74-106 [facility] Comment on above: Performed By: #### P OCGLUC ####[facility] Tablqwjpsu38[address] [place] [address]Dr. Swathi Reis Glucose [Mass/Vol] 203 mg/dL Critically high 74-106 [facility] Comment on above: Performed By: #### P OCGLUC ####[facility] Zqcbsclxzc2694 [place] [address]DrOtto Swathi Chato PROF 14(COMP METB)on 022 Albumin [Mass/Vol] 2.6 g/dL Critically low 3.4-5.0 [facility] Comment on above: Performed By: #### B MEDICAL OFFICE ASSISTANT, CMP ####[facility] Kfnhjatkyx95[address] [place], [place] [address]Xa. Swathi Reis Albumin/Globulin [Mass ratio] 0.7 {ratio} Normal [facility] Comment on above: Performed By: #### B MEDICAL OFFICE ASSISTANT, CMP ####[facility] Eeyntsxisx5[address] [place], [place] [address]Dq. Swathi Reis ALP [Catalytic activity/Vol] 73 U/L Normal 46-116 [facility] Comment on above: Performed By: #### B MEDICAL OFFICE ASSISTANT, CMP ####[facility] Sgforzkygc09[address] [place] [id number]. Swathi Reis ALT [Catalytic activity/Vol] 12 U/L Critically low 14-59 [facility] Comment on above: Performed By: #### B MEDICAL OFFICE ASSISTANT, CMP ####[facility] Ujhyvwbazc38[address] [place] [id number]. Swathi Reis Anion gap [Moles/Vol] 12.4 mmol/L Normal [facility] Comment on above: Performed By: #### B MEDICAL OFFICE ASSISTANT, CMP ####[facility] Zwrrfbxblj4103 [place] [id number]. Swathi Reis AST [Catalytic activity/Vol] 10 U/L Critically low 15-37 [facility] Comment on above: Performed By: #### B MEDICAL OFFICE ASSISTANT, CMP ####[facility] Jortuwpvzl90[address] [place] [id number]. Swathi Reis Bilirubin [Mass/Vol] 0.5 mg/dL Normal 0.2-1.0 [facility] Comment on above: Performed By: #### B MEDICAL OFFICE ASSISTANT, CMP ####[facility] Xriqrxwwjh0534 [place] [id number]. Swathi Reis Calcium [Mass/Vol] 8.7 mg/dL Normal 8.5-10.1 [facility] Comment on above: Performed By: #### B MEDICAL OFFICE ASSISTANT, CMP ####[facility] Oeiogcykib2334 [place] [id number]. Swathi Chato Chloride [Moles/Vol] 105 mmol/L Normal 98-107 [facility] Comment on above: Performed By: #### B MEDICAL OFFICE ASSISTANT, CMP ####[facility] Kkpsuqntea2318 [place] [phone]. Swathi Reis CO2 [Moles/Vol] 27.3 mmol/L Normal 21.0-32.0 [facility] Comment on above: Performed By: #### B MEDICAL OFFICE ASSISTANT, CMP ####[facility] Neqwmxeoiu[address] [place], [place] [address]Dr. Swathi Reis Creatinine [Mass/Vol] 2.02 mg/dL Critically high 0.55-1.02 [facility] Comment on above: Performed By: #### B MEDICAL OFFICE ASSISTANT, CMP ####[facility] Jwwzaewfgf19[address] [place], [place] [address]Dr. Inessatracy Chato EGFR-AF RWANDAN 29 mL/min/1.73m2 Critically low >=60 [facility] Comment on above: Performed By: #### B MEDICAL OFFICE ASSISTANT, CMP ####[facility] Xvymunnuzt254[address] [place], [place] [address]Dr. Swathi Reis EGFR-NON AF RWANDAN 24 mL/min/1.73m2 Critically low >=60 [facility] Comment on above: Performed By: #### B MEDICAL OFFICE ASSISTANT, CMP ####[facility] Yzepjodndw[address] [place], [place] [address]Dr. Swathi Reis Globulin (S) [Mass/Vol] 3.6 g/dL Normal [facility] Comment on above: Performed By: #### B MEDICAL OFFICE ASSISTANT, CMP ####[facility] Tghefllvst08[address] [place], [place] [address]Dr. Swathi Reis Glucose [Mass/Vol] 134 mg/dL Critically high 74-106 [facility] Comment on above: Performed By: #### B MEDICAL OFFICE ASSISTANT, CMP ####[facility] Cevhhithkk[address] [place], [place] [address]Dr. Swathi Reis Potassium [Moles/Vol] 3.7 mmol/L Normal 3.5-5.1 [facility] Comment on above: Performed By: #### B MEDICAL OFFICE ASSISTANT, CMP ####[facility] Nvedobnkse7464[address] [place], [place] [address]Dr. Swathi Reis Protein [Mass/Vol] 6.2 g/dL Critically low 6.4-8.2 [facility] Comment on above: Performed By: #### B MEDICAL OFFICE ASSISTANT, CMP ####[facility] Mvrjnhhfxj[address] [place], [place] [address]Dr. Swathi Reis Sodium [Moles/Vol] 141 mmol/L Normal 136-145 [facility] Comment on above: Performed By: #### B MEDICAL OFFICE ASSISTANT, CMP ####[facility] Knaugdhqll16[address] [place], [place] [address]Dr. Swathi Chato Urea nitrogen [Mass/Vol] 29.0 mg/dL Critically high 7.0-18.0 [facility] Comment on above: Performed By: #### B MEDICAL OFFICE ASSISTANT, CMP ####[facility] Svbggcxyap022[address] [place], [place] [address]Dr. Inessatracy Reis Urea nitrogen/Creatinine [Mass ratio] 14.4 mg/mg Normal [facility] Comment on above: Performed By: #### B MEDICAL OFFICE ASSISTANT, CMP ####[facility] Nrvpzuwaac[address] [place], [place] [address]Dr. Swathi Chato XR CHEST 2 Von 07-09-2022 XR CHEST 2 V Normal [facility] BNPon 07-08-2022 Natriuretic peptide B (Bld) [Mass/Vol] 6044.0 pg/mL Critically high <=1,800.0 [facility] Comment on above: Performed By: #### B MEDICAL OFFICE ASSISTANT, CMP ####[facility] Ijkncvlssm[address] [place], [place] [address]Dr. Swathi Chato CBC AUTO DIFFon 07-08-2022 BASO # 0.1 103/ul Normal 0.0-0.1 [facility] Comment on above: Performed By: #### C BC ####[facility] Temghpwllz[address] [place], [place] [address]Dr. Swathi Reis Basophils/100 WBC (Bld) 0.7 % Normal 0.2-2.0 [facility] Comment on above: Performed By: #### C BC ####[facility] Tuqkjfdvgy926[address] [place], [place] [address]Dr. Swathi Reis EO # 0.3 103/ul Normal 0.0-0.7 [facility] Comment on above: Performed By: #### C BC ####[facility] Dqrmybatfb6637 [place] [id number]. Swathi Reis Eosinophils/100 WBC (Bld) 2.9 % Normal 0.9-7.0 [facility] Comment on above: Performed By: #### C BC ####[facility] Wfhkambmka2659 [place] [address]Dr. Swathi Reis Erythrocyte distribution width (RBC) [Ratio] 13.5 % Normal 11.0-15.0 [facility] Comment on above: Performed By: #### C BC ####[facility] Zhukgwhbhn[address] [place], [place] [address]Dr. Swathi Reis Hematocrit (Bld) [Volume fraction] 29.9 % Critically low 36.0-48.0 [facility] Comment on above: Performed By: #### C BC ####[facility] Vqywjkuhfo[address] [place], [place] [address]Dr. Swathi Reis Hemoglobin (Bld) [Mass/Vol] 9.5 g/dL Critically low 12.0-16.0 [facility] Comment on above: Performed By: #### C BC ####[facility] Tovismzwph[address] [place], [place] [address]Dr. Swathi Reis IG # 0.03 10e3/ul Normal 0.00-0.03 [facility] Comment on above: Performed By: #### C BC ####[facility] Nyovjlwxsw7[address] [place], [place] [address]Dr. Swathi Reis IG % 0.3 % Normal 0.0-0.5 [facility] Comment on above: Performed By: #### C BC ####[facility] Skgpfpcndo[address] [place], [place] [address]Dr. Swathi Reis LYMPH # 0.9 103/ul Critically low 1.2-3.8 [facility] Comment on above: Performed By: #### C BC ####[facility] Zszobnlimc[address] [place], [place] [address]Dr. Swathi Reis Lymphocytes/100 WBC (Bld) 8.4 % Critically low 20.5-60.0 [facility] Comment on above: Performed By: #### C BC ####[facility] Fjdmspccac32[address] [place] [phone]. Swathi Reis MANUAL DIFF REQ NO Normal [facility] Comment on above: Performed By: #### C BC ####[facility] Elctfrhypg8511 [place] [id number]. Swathi Reis MCH (RBC) [Entitic mass] 30.1 pg Normal 26.7-34.0 [facility] Comment on above: Performed By: #### C BC ####[facility] Znvpnyttwm2906 [place] [id number]. Swathi Reis MCHC (RBC) [Mass/Vol] 31.8 g/dL Normal 29.9-35.2 [facility] Comment on above: Performed By: #### C BC ####[facility] Nrdmebmclb[address] [place], [place] [address]Dr. Swathi Reis MCV (RBC) [Entitic vol] 94.6 fL Normal 81.0-99.0 [facility] Comment on above: Performed By: #### C BC ####[facility] Fuzohnfwlg[address] [place], [place] [id number]. Swathi Reis MONO # 1.0 103/ul Critically high 0.3-0.8 [facility] Comment on above: Performed By: #### C BC ####[facility] Qtpemitjec355[address] [place], [place] [address]Dr. Swathi Reis Monocytes/100 WBC (Bld) 9.5 % Normal 1.7-12.0 [facility] Comment on above: Performed By: #### C BC ####[facility] Dilsajzebq[address] [place], [place] [id number]. Swathi Reis NEUT # 8.3 103/ul Critically high 1.4-6.5 [facility] Comment on above: Performed By: #### C BC ####[facility] Jrxeonubuz218[address] [place], [place] [address]Dr. Swathi Reis Neutrophils/100 WBC (Bld) 78.2 % Critically high 43.0-75.0 [facility] Comment on above: Performed By: #### C BC ####[facility] Bpgsloqjql8094 [place] [id number]. Swathi Reis Platelet mean volume (Bld) [Entitic vol] 10.7 fL Normal 9.5-13.5 [facility] Comment on above: Performed By: #### C BC ####[facility] Qtprakjgql2505 [place] [id number]. Swathi Reis PLT 273 103/ul Normal 150-450 [facility] Comment on above: Performed By: #### C BC ####[facility] Gtfobxltrf3967 [place] [address]Dr. Swathi Reis RBC 3.16 106/ul Critically low 4.20-5.40 [facility] Comment on above: Performed By: #### C BC ####[facility] Aoefbjdbjz1542 [place] [id number]. Swathi Reis WBC 10.6 103/ul Normal 4.0-11.0 [facility] Comment on above: Performed By: #### C BC ####[facility] Ootsllcpwr5808 [place] [address]Dr. Swathi Reis POINT OF CARE GLUCOSEon 06-23 Glucose [Mass/Vol] 243 mg/dL Critically high 74-106 [facility] Comment on above: Performed By: #### P OCGLUC ####[facility] Mcwrgzosek20[address] [place] [address]Dr. Swathi Reis Glucose [Mass/Vol] 161 mg/dL Critically high 74-106 [facility] Comment on above: Performed By: #### P OCGLUC ####[facility] Yhyaxpwhjb1397 [place] [address]Dr. Swathi Reis Glucose [Mass/Vol] 186 mg/dL Critically high 74-106 [facility] Comment on above: Performed By: #### P OCGLUC ####[facility] Xheqyskush1326 [place] [id number]. Swathi Reis Glucose [Mass/Vol] 168 mg/dL Critically high 74-106 [facility] Comment on above: Performed By: #### P OCGLUC ####[facility] Gbgevadbma93[address] [place] [address]Dr. Swathi Reis PROF 14(COMP METB)on 022 Albumin [Mass/Vol] 2.5 g/dL Critically low 3.4-5.0 Th e [facility] Comment on above: Performed By: #### B MEDICAL OFFICE ASSISTANT, CMP ####[facility] Ryxnjzaxan8450 [place] [address]Dr. Swathi Reis Albumin/Globulin [Mass ratio] 0.7 {ratio} Normal [facility] Comment on above: Performed By: #### B MEDICAL OFFICE ASSISTANT, CMP ####[facility] Kiblhuutzp[address] [place], [place] [address]Dr. Swathi Reis ALP [Catalytic activity/Vol] 77 U/L Normal 46-116 [facility] Comment on above: Performed By: #### B MEDICAL OFFICE ASSISTANT, CMP ####[facility] Kwvumwzpph[address] [place], [place] [address]Dr. Swathi Reis ALT [Catalytic activity/Vol] 16 U/L Normal 14-59 [facility] Comment on above: Performed By: #### B MEDICAL OFFICE ASSISTANT, CMP ####[facility] Tbjpabtgmg84[address] [place], [place] [address]Dr. Swathi Reis Anion gap [Moles/Vol] 11.9 mmol/L Normal [facility] Comment on above: Performed By: #### B MEDICAL OFFICE ASSISTANT, CMP ####[facility] Xjwgucyyyz2756 [place] [address]Dr. Swathi Reis AST [Catalytic activity/Vol] 13 U/L Critically low 15-37 [facility] Comment on above: Performed By: #### B MEDICAL OFFICE ASSISTANT, CMP ####[facility] Nyndkaszku7601 [place] [address]Dr. Swathi Reis Bilirubin [Mass/Vol] 0.6 mg/dL Normal 0.2-1.0 [facility] Comment on above: Performed By: #### B MEDICAL OFFICE ASSISTANT, CMP ####[facility] Lfarqcvqnk0937 [place] [address]Dr. Swathi Reis Calcium [Mass/Vol] 8.7 mg/dL Normal 8.5-10.1 [facility] Comment on above: Performed By: #### B MEDICAL OFFICE ASSISTANT, CMP ####[facility] Fpfihawvsp[address] [place], [place] [address]Dr. Inessatracy Reis Chloride [Moles/Vol] 105 mmol/L Normal 98-107 [facility] Comment on above: Performed By: #### B MEDICAL OFFICE ASSISTANT, CMP ####[facility] Itlmvvekom08[address] [place], [place] [address]Dr. Inessatracy Chato CO2 [Moles/Vol] 26.6 mmol/L Normal 21.0-32.0 [facility] Comment on above: Performed By: #### B MEDICAL OFFICE ASSISTANT, CMP ####[facility] Wjqkxvobio89[address] [place], [place] [address]Dr. Swathi Reis Creatinine [Mass/Vol] 1.54 mg/dL Critically high 0.55-1.02 [facility] Comment on above: Performed By: #### B MEDICAL OFFICE ASSISTANT, CMP ####[facility] Rlkpkwqsks[address] [place], [place] [address]Dr. Inessatracy Chato EGFR-AF RWANDAN 40 mL/min/1.73m2 Critically low >=60 [facility] Comment on above: Performed By: #### B MEDICAL OFFICE ASSISTANT, CMP ####[facility] Lpzuvjjbdc98[address] [place], [place] [address]Dr. Swathi Reis EGFR-NON AF RWANDAN 33 mL/min/1.73m2 Critically low >=60 [facility] Comment on above: Performed By: #### B MEDICAL OFFICE ASSISTANT, CMP ####[facility] Ebisxsjeon66[address] [place], [place] [address]Dr. Swathi Reis Globulin (S) [Mass/Vol] 3.8 g/dL Normal [facility] Comment on above: Performed By: #### B MEDICAL OFFICE ASSISTANT, CMP ####[facility] Qhutsvimrj122[address] [place], [place] [address]Dr. Swathi Reis Glucose [Mass/Vol] 153 mg/dL Critically high 74-106 [facility] Comment on above: Performed By: #### B MEDICAL OFFICE ASSISTANT, CMP ####[facility] Rhtbrejwkw9939[address] [place], [place] [address]Dr. Swathi Reis Potassium [Moles/Vol] 3.5 mmol/L Normal 3.5-5.1 [facility] Comment on above: Performed By: #### B MEDICAL OFFICE ASSISTANT, CMP ####[facility] Tpyvbgwlsv4917 [place] [address]Dr. Swathi Reis Protein [Mass/Vol] 6.3 g/dL Critically low 6.4-8.2 Th [facility] Comment on above: Performed By: #### B MEDICAL OFFICE ASSISTANT, CMP ####[facility] Fstdmvbgor08[address] [place], [place] [address]Dr. Swathi Reis Sodium [Moles/Vol] 140 mmol/L Normal 136-145 [facility] Comment on above: Performed By: #### B MEDICAL OFFICE ASSISTANT, CMP ####[facility] Lnzcjhqguw4316[address] [place], [place] [address]Dr. Swathi Reis Urea nitrogen [Mass/Vol] 25.0 mg/dL Critically high 7.0-18.0 [facility] Comment on above: Performed By: #### B MEDICAL OFFICE ASSISTANT, CMP ####[facility] Vdrcwpfzrq[address] [place], [place] [address]Dr. Swathi Reis Urea nitrogen/Creatinine [Mass ratio] 16.2 mg/mg Normal [facility] Comment on above: Performed By: #### B MEDICAL OFFICE ASSISTANT, CMP ####[facility] Dxndbbdmrv86[address] [place], [place] [address]Dr. Swathi Chato BNPon 07-07-2022 Natriuretic peptide B (Bld) [Mass/Vol] 6413.0 pg/mL Critically high <=1,800.0 [facility] Comment on above: Performed By: #### B MEDICAL OFFICE ASSISTANT, CMP ####[facility] Alcvdqhcjq[address] [place], [place] [address]Dr. Inessatracy Chato CBC AUTO DIFFon 07-07-2022 BASO # 0.1 103/ul Normal 0.0-0.1 [facility] Comment on above: Performed By: #### C BC ####[facility] Spfqqgkycc27[address] [place], [place] [address]Dr. Swathi Reis Basophils/100 WBC (Bld) 0.4 % Normal 0.2-2.0 [facility] Comment on above: Performed By: #### C BC ####[facility] Hvwennjbyw57[address] [place] [address]Dr. Swathi Reis EO # 0.3 103/ul Normal 0.0-0.7 [facility] Comment on above: Performed By: #### C BC ####[facility] Ocbebdkicq86[address] [place], [place] [address]Dr. Swathi Reis Eosinophils/100 WBC (Bld) 2.6 % Normal 0.9-7.0 [facility] Comment on above: Performed By: #### C BC ####[facility] Wmnpohkmka4520[address] [place], [place] [address]Dr. Swathi Reis Erythrocyte distribution width (RBC) [Ratio] 13.7 % Normal 11.0-15.0 [facility] Comment on above: Performed By: #### C BC ####[facility] Agyoupfazm13[address] [place], [place] [address]Dr. Swathi Reis Hematocrit (Bld) [Volume fraction] 28.9 % Critically low 36.0-48.0 [facility] Comment on above: Performed By: #### C BC ####[facility] Shkzzloewt[address] [place], [place] [address]Dr. Swathi Reis Hemoglobin (Bld) [Mass/Vol] 9.3 g/dL Critically low 12.0-16.0 [facility] Comment on above: Performed By: #### C BC ####[facility] Fvkihkbtza62[address] [place], [place] [address]Dr. Swathi Reis IG # 0.04 10e3/ul Critically high 0.00-0.03 [facility] Comment on above: Performed By: #### C BC ####[facility] Itjygguunk9[address] [place], [place] [address]Dr. Swathi Reis IG % 0.4 % Normal 0.0-0.5 [facility] Comment on above: Performed By: #### C BC ####[facility] Chhlgequmx6740[address] [place], [place] [address]DrOtto Reis LYMPH # 1.0 103/ul Critically low 1.2-3.8 [facility] Comment on above: Performed By: #### C BC ####[facility] Njwkwuarzr24[address] [place] [address]Dr. Swathi Reis Lymphocytes/100 WBC (Bld) 8.6 % Critically low 20.5-60.0 [facility] Comment on above: Performed By: #### C BC ####[facility] Qmvilqjstb5945 [place] [address]DrOtto Reis MANUAL DIFF REQ NO Normal [facility] Comment on above: Performed By: #### C BC ####[facility] Ojehreabjv8908 [place] [address]Dr. Swathi Reis MCH (RBC) [Entitic mass] 30.0 pg Normal 26.7-34.0 [facility] Comment on above: Performed By: #### C BC ####[facility] Unbanlkhko[address] [place], [place] [address]Dr. Swathi Reis MCHC (RBC) [Mass/Vol] 32.2 g/dL Normal 29.9-35.2 [facility] Comment on above: Performed By: #### C BC ####[facility] Tnnuwhtvly58[address] [place], [place] [address]DrOtto Reis MCV (RBC) [Entitic vol] 93.2 fL Normal 81.0-99.0 [facility] Comment on above: Performed By: #### C BC ####[facility] Wgqtpnjnnp74[address] [place], [place] [address]Dr. Swathi Reis MONO # 1.0 103/ul Critically high 0.3-0.8 [facility] Comment on above: Performed By: #### C BC ####[facility] Tziwxljukb312[address] [place], [place] [address]DrOtto Reis Monocytes/100 WBC (Bld) 9.0 % Normal 1.7-12.0 [facility] Comment on above: Performed By: #### C BC ####[facility] Xolsmlykpq409[address] [place], [place] [address]Dr. Swathi Reis NEUT # 9.0 103/ul Critically high 1.4-6.5 [facility] Comment on above: Performed By: #### C BC ####[facility] Pjhqevoljj7[address] [place] [address]Dr. Swathi Reis Neutrophils/100 WBC (Bld) 79.0 % Critically high 43.0-75.0 [facility] Comment on above: Performed By: #### C BC ####[facility] Jjsbycflxj8933 [place] [address]Dr. Swathi Reis Platelet mean volume (Bld) [Entitic vol] 10.7 fL Normal 9.5-13.5 [facility] Comment on above: Performed By: #### C BC ####[facility] Nveffpxrci8[address] [place], [place] [address]Dr. Swathi Reis PLT 264 103/ul Normal 150-450 [facility] Comment on above: Performed By: #### C BC ####[facility] Fyokgzqgoh60[address] [place], [place] [address]Dr. Swathi Reis RBC 3.10 106/ul Critically low 4.20-5.40 [facility] Comment on above: Performed By: #### C BC ####[facility] Eshlsptftq[address] [place], [place] [address]Dr. Swathi Reis WBC 11.4 103/ul Critically high 4.0-11.0 [facility] Comment on above: Performed By: #### C BC ####[facility] Ywcwwelxuj175[address] [place], [place] [address]Dr. Inessatracy Chato POINT OF CARE GLUCOSEon 06-23 Glucose [Mass/Vol] 298 mg/dL Critically high 74-106 [facility] Comment on above: Performed By: #### P OCGLUC ####[facility] Slladkhjic[address] [place], [place] [address]Dr. Swathi Reis Glucose [Mass/Vol] 123 mg/dL Critically high 74-106 [facility] Comment on above: Performed By: #### P OCGLUC ####[facility] Grjzryvyud94[address] [place], [place] [address]Dr. Swathi Reis Glucose [Mass/Vol] 263 mg/dL Critically high 74-106 [facility] Comment on above: Performed By: #### P OCGLUC ####[facility] Wsxlcpifut60[address] [place] [address]Dr. Swathi Reis Glucose [Mass/Vol] 151 mg/dL Critically high 74-106 [facility] Comment on above: Performed By: #### P OCGLUC ####[facility] Xshillsmwl12[address] [place] [address]Dr. Swathi Reis PROF 14(COMP METB)on 022 Albumin [Mass/Vol] 2.5 g/dL Critically low 3.4-5.0 Th [facility] Comment on above: Performed By: #### B MEDICAL OFFICE ASSISTANT, CMP ####[facility] Ofrktcduom[address] [place], [place] [address]Dr. Swathi Reis Albumin/Globulin [Mass ratio] 0.7 {ratio} Normal [facility] Comment on above: Performed By: #### B MEDICAL OFFICE ASSISTANT, CMP ####[facility] Wlvritysgm[address] [place], [place] [address]Dr. Swathi Reis ALP [Catalytic activity/Vol] 82 U/L Normal 46-116 [facility] Comment on above: Performed By: #### B MEDICAL OFFICE ASSISTANT, CMP ####[facility] Meqkercgif[address] [place], [place] [address]Dr. Swathi Reis ALT [Catalytic activity/Vol] 13 U/L Critically low 14-59 [facility] Comment on above: Performed By: #### B MEDICAL OFFICE ASSISTANT, CMP ####[facility] Tbtvdjojjm[address] [place], [place] [address]Dr. Swathi Reis Anion gap [Moles/Vol] 11.5 mmol/L Normal [facility] Comment on above: Performed By: #### B MEDICAL OFFICE ASSISTANT, CMP ####[facility] Jcmzbkxllr[address] [place], [place] [address]Dr. Swathi Reis AST [Catalytic activity/Vol] 12 U/L Critically low 15-37 [facility] Comment on above: Performed By: #### B MEDICAL OFFICE ASSISTANT, CMP ####[facility] Arhstdjygq[address] [place], [place] [address]Dr. Swathi Reis Bilirubin [Mass/Vol] 0.7 mg/dL Normal 0.2-1.0 [facility] Comment on above: Performed By: #### B MEDICAL OFFICE ASSISTANT, CMP ####[facility] [address] [place] [address]Dr. Swathi Reis Calcium [Mass/Vol] 8.6 mg/dL Normal 8.5-10.1 [facility] Comment on above: Performed By: #### B MEDICAL OFFICE ASSISTANT, CMP ####[facility] [address] [place] [address]Dr. Swathi Reis Chloride [Moles/Vol] 104 mmol/L Normal 98-107 [facility] Comment on above: Performed By: #### B MEDICAL OFFICE ASSISTANT, CMP ####[facility] Xdispbdvyf[address] [place], [place] [address]Dr. Swathi Reis CO2 [Moles/Vol] 26.6 mmol/L Normal 21.0-32.0 [facility] Comment on above: Performed By: #### B MEDICAL OFFICE ASSISTANT, CMP ####[facility] Rqepvdfxpk[address] [place], [place] [address]Dr. Swathi Reis Creatinine [Mass/Vol] 1.56 mg/dL Critically high 0.55-1.02 [facility] Comment on above: Performed By: #### B MEDICAL OFFICE ASSISTANT, CMP ####[facility] [address]qdetz[address] [place] [address]Dr. Swathi Reis EGFR-AF RWANDAN 39 mL/min/1.73m2 Critically low >=60 [facility] Comment on above: Performed By: #### B MEDICAL OFFICE ASSISTANT, CMP ####[facility] Rtthvtomet[address] [place] [address]Dr. Swathi Reis EGFR-NON AF RWANDAN 32 mL/min/1.73m2 Critically low >=60 [facility] Comment on above: Performed By: #### B MEDICAL OFFICE ASSISTANT, CMP ####[facility] Zmnoxqfxur[address] [place] [address]Dr. Swathi Reis Globulin (S) [Mass/Vol] 3.7 g/dL Normal [facility] Comment on above: Performed By: #### B MEDICAL OFFICE ASSISTANT, CMP ####[facility] [address]kokxwry[address] [place] [address]Dr. Swathi Reis Glucose [Mass/Vol] 149 mg/dL Critically high 74-106 [facility] Comment on above: Performed By: #### B MEDICAL OFFICE ASSISTANT, CMP ####[facility] Ccegeqfvaq[address] [place] [address]Dr. Inessatracy Reis Potassium [Moles/Vol] 3.1 mmol/L Critically low 3.5-5.1 [facility] Comment on above: Performed By: #### B MEDICAL OFFICE ASSISTANT, CMP ####[facility] Wgsatmjlro[address] [place], [place] [address]Dr. Inessatracy Reis Protein [Mass/Vol] 6.2 g/dL Critically low 6.4-8.2 [facility] Comment on above: Performed By: #### B MEDICAL OFFICE ASSISTANT, CMP ####[facility] Bdjtzfpeet[address] [place], [place] [address]Dr. Swathi Reis Sodium [Moles/Vol] 139 mmol/L Normal 136-145 [facility] Comment on above: Performed By: #### B MEDICAL OFFICE ASSISTANT, CMP ####[facility] Ddtfemlpsh[address] [place], [place] [address]Dr. Swathi Reis Urea nitrogen [Mass/Vol] 19.0 mg/dL Critically high 7.0-18.0 [facility] Comment on above: Performed By: #### B MEDICAL OFFICE ASSISTANT, CMP ####[facility] Axakighcqz[address] [place], [place] [address]Dr. Inessatracy Chato Urea nitrogen/Creatinine [Mass ratio] 12.2 mg/mg Normal [facility] Comment on above: Performed By: #### B MEDICAL OFFICE ASSISTANT, CMP ####[facility] Ibbazvular[address] [place], [place] [address]Dr. Swathi Reis BNPon 07-06-2022 Natriuretic peptide B (Bld) [Mass/Vol] 4734.0 pg/mL Critically high <=1,800.0 [facility] Comment on above: Performed By: #### B MEDICAL OFFICE ASSISTANT, CMP ####[facility] Xebpvmmowa[address] [place], [place] [address]Dr. Swathi Reis CBC AUTO DIFFon 10-14-2022 BASO # 0.0 103/ul Normal 0.0-0.1 [facility] Comment on above: Performed By: #### C BC ####[facility] Dqbkldtukm[address] [place] [address]Dr. Swathi Reis Basophils/100 WBC (Bld) 0.3 % Normal 0.2-2.0 [facility] Comment on above: Performed By: #### C BC ####[facility] K[address]ugjeppp[address] [place] [address]Dr. Swathi Reis EO # 0.0 103/ul Normal 0.0-0.7 [facility] Comment on above: Performed By: #### C BC ####[facility] Qohbcikvmx88[address] [place], [place] [address]Dr. Swathi Reis Eosinophils/100 WBC (Bld) 0.1 % Critically low 0.9-7.0 [facility] Comment on above: Performed By: #### C BC ####[facility] Mhjqzgcwgr[address] [place], [place] [address]Dr. Swathi Reis Erythrocyte distribution width (RBC) [Ratio] 13.5 % Normal 11.0-15.0 [facility] Comment on above: Performed By: #### C BC ####[facility] Vabfyttvol[address] [place] [address]Dr. Swathi Reis Hematocrit (Bld) [Volume fraction] 29.6 % Critically low 36.0-48.0 [facility] Comment on above: Performed By: #### C BC ####[facility] Xgzqlxisgm[address] [place], [place] [address]Dr. Swathi Reis Hemoglobin (Bld) [Mass/Vol] 9.6 g/dL Critically low 12.0-16.0 [facility] Comment on above: Performed By: #### C BC ####[facility] Z[address]zmsegb[address] [place] [address]Dr. Swathi Reis IG # 0.07 10e3/ul Critically high 0.00-0.03 [facility] Comment on above: Performed By: #### C BC ####[facility] Oniwnkkvth[address] [place] [address]Dr. Swathi Chato IG % 0.5 % Normal 0.0-0.5 [facility] Comment on above: Performed By: #### C BC ####[facility] Rfjtlrmeuf[address] [place] [address]Dr. Swathi Chato LYMPH # 1.4 103/ul Normal 1.2-3.8 [facility] Comment on above: Performed By: #### C BC ####[facility] Aqrrcwhnbw[address] [place] [address]Dr. Swathi Chato Lymphocytes/100 WBC (Bld) 9.7 % Critically low 20.5-60.0 [facility] Comment on above: Performed By: #### C BC ####[facility] Asachkbgyt8[address] [place], [place] [address]Dr. Inessatracy Reis MANUAL DIFF REQ NO Normal [facility] Comment on above: Performed By: #### C BC ####[facility] Lymzvhwwcr[address] [place] [address]Dr. Swathi Chato MCH (RBC) [Entitic mass] 29.9 pg Normal 26.7-34.0 [facility] Comment on above: Performed By: #### C BC ####[facility] Vjjoduuuxx[address] [place], [place] [address]Dr. Swathi Reis MCHC (RBC) [Mass/Vol] 32.4 g/dL Normal 29.9-35.2 [facility] Comment on above: Performed By: #### C BC ####[facility] Zmmaffftth[address] [place] [address]Dr. Swathi Chato MCV (RBC) [Entitic vol] 92.2 fL Normal 81.0-99.0 [facility] Comment on above: Performed By: #### C BC ####[facility] Islzwiozrr[address] [place], [place] [address]Dr. Swathi Reis MONO # 1.3 103/ul Critically high 0.3-0.8 [facility] Comment on above: Performed By: #### C BC ####[facility] Kodudajiki[address] [place] [address]Dr. Swathi Reis Monocytes/100 WBC (Bld) 9.4 % Normal 1.7-12.0 [facility] Comment on above: Performed By: #### C BC ####[facility] Yptxcvujlf7[address] [place] [address]Dr. Swathi Reis NEUT # 11.4 103/ul Critically high 1.4-6.5 [facility] Comment on above: Performed By: #### C BC ####[facility] Topqojhbcu[address] [place] [address]Dr. Swathi Reis Neutrophils/100 WBC (Bld) 80.0 % Critically high 43.0-75.0 [facility] Comment on above: Performed By: #### C BC ####[facility] Yoejlvrwtb87[address] [place] [address]Dr. Swathi Reis Platelet mean volume (Bld) [Entitic vol] 10.6 fL Normal 9.5-13.5 [facility] Comment on above: Performed By: #### C BC ####[facility] Tamfsuelko[address] [place] [address]Dr. Swathi Reis PLT 283 103/ul Normal 150-450 [facility] Comment on above: Performed By: #### C BC ####[facility] Krwuiwboqs[address] [place] [address]Dr. Swathi Reis RBC 3.21 106/ul Critically low 4.20-5.40 [facility] Comment on above: Performed By: #### C BC ####[facility] Iniwkqnemp37[address] [place] [address]Dr. Swathi Reis WBC 14.2 103/ul Critically high 4.0-11.0 [facility] Comment on above: Performed By: #### C BC ####[facility] Oattpwtbwi[address] [place], [place] [address]Dr. Swathi Reis ECHOCARDIO M/2D COMPLETEon ECHOCARDIO M/2D COMPLETE Normal [facility] POINT OF CARE GLUCOSEon 10- Glucose [Mass/Vol] 227 mg/dL Critically high 74-106 [facility] Comment on above: Performed By: #### P OCGLUC ####[facility] Djvkczdwgd[address] [place] [address]Dr. Swathi Reis Glucose [Mass/Vol] 175 mg/dL Critically high 74-106 [facility] Comment on above: Performed By: #### P OCGLUC ####[facility] Lgweixbght[address] [place] [address]Dr. Swathi Reis PROF 14(COMP METB)on 07-06-2 022 Albumin [Mass/Vol] 2.6 g/dL Critically low 3.4-5.0 Th [facility] Comment on above: Performed By: #### B MEDICAL OFFICE ASSISTANT, CMP ####[facility] Oewyqexiqy[address] [place], [place] [address]Dr. Swathi Reis Albumin/Globulin [Mass ratio] 0.7 {ratio} Normal [facility] Comment on above: Performed By: #### B MEDICAL OFFICE ASSISTANT, CMP ####[facility] Juqbpdyqfj97[address] [place], [place] [address]Dr. Swathi Reis ALP [Catalytic activity/Vol] 79 U/L Normal 46-116 [facility] Comment on above: Performed By: #### B MEDICAL OFFICE ASSISTANT, CMP ####[facility] Paxjjbrrgt[address] [place], [place] [address]Dr. Swathi Reis ALT [Catalytic activity/Vol] 17 U/L Normal 14-59 [facility] Comment on above: Performed By: #### B MEDICAL OFFICE ASSISTANT, CMP ####[facility] Nryuzieiiy[address] [place], [place] [address]Dr. Swathi Reis Anion gap [Moles/Vol] 11.5 mmol/L Normal [facility] Comment on above: Performed By: #### B MEDICAL OFFICE ASSISTANT, CMP ####[facility] Qkhjcgcgmi[address] [place], [place] [address]Dr. Swathi Reis AST [Catalytic activity/Vol] 11 U/L Critically low 15-37 [facility] Comment on above: Performed By: #### B MEDICAL OFFICE ASSISTANT, CMP ####[facility] Ygwqrmhlkf427[address] [place], [place] [address]Dr. Swathi Reis Bilirubin [Mass/Vol] 0.9 mg/dL Normal 0.2-1.0 [facility] Comment on above: Performed By: #### B MEDICAL OFFICE ASSISTANT, CMP ####[facility] Zytjhqsaiu86[address] [place], [place] [address]Dr. Swathi Reis Calcium [Mass/Vol] 8.3 mg/dL Critically low 8.5-10.1 Th e [facility] Comment on above: Performed By: #### B MEDICAL OFFICE ASSISTANT, CMP ####[facility] Vwztkivkoh[address] [place], [place] [address]Dr. Swathi Reis Chloride [Moles/Vol] 102 mmol/L Normal 98-107 [facility] Comment on above: Performed By: #### B MEDICAL OFFICE ASSISTANT, CMP ####[facility] Rftjjxewrj[address] [place], [place] [address]Dr. Inessatracy Reis CO2 [Moles/Vol] 29.5 mmol/L Normal 21.0-32.0 [facility] Comment on above: Performed By: #### B MEDICAL OFFICE ASSISTANT, CMP ####[facility] Erpfxmqzfz660[address] [place], [place] [address]Dr. Swathi Chato Creatinine [Mass/Vol] 1.47 mg/dL Critically high 0.55-1.02 [facility] Comment on above: Performed By: #### B MEDICAL OFFICE ASSISTANT, CMP ####[facility] Hfbijnkswd[address] [place], [place] [address]Dr. Inessatracy Chato EGFR-AF RWANDAN 42 mL/min/1.73m2 Critically low >=60 [facility] Comment on above: Performed By: #### B MEDICAL OFFICE ASSISTANT, CMP ####[facility] Tbghbymfvu[address] [place], [place] [address]Dr. Inessatracy Chato EGFR-NON AF RWANDAN 34 mL/min/1.73m2 Critically low >=60 [facility] Comment on above: Performed By: #### B MEDICAL OFFICE ASSISTANT, CMP ####[facility] Pbmasddqkh808[address] [place], [place] [address]Dr. Swathi Reis Globulin (S) [Mass/Vol] 3.7 g/dL Normal [facility] Comment on above: Performed By: #### B MEDICAL OFFICE ASSISTANT, CMP ####[facility] Cfxqcqxhsv[address] [place] [address]Dr. Swathi Reis Glucose [Mass/Vol] 150 mg/dL Critically high 74-106 T [facility] Comment on above: Performed By: #### B MEDICAL OFFICE ASSISTANT, CMP ####[facility] Itysjxfhrj[address] [place], [place] [address]Dr. Swathi Reis Potassium [Moles/Vol] 3.0 mmol/L Critically low 3.5-5.1 [facility] Comment on above: Performed By: #### B MEDICAL OFFICE ASSISTANT, CMP ####[facility] Bsslvdbsjb03[address] [place], [place] [address]Dr. Swathi Reis Protein [Mass/Vol] 6.3 g/dL Critically low 6.4-8.2 [facility] Comment on above: Performed By: #### B MEDICAL OFFICE ASSISTANT, CMP ####[facility] Bwpgoeypuj67[address] [place], [place] [address]Dr. Swathi Reis Sodium [Moles/Vol] 140 mmol/L Normal 136-145 [facility] Comment on above: Performed By: #### B MEDICAL OFFICE ASSISTANT, CMP ####[facility] Chkrqbnuvb[address] [place], [place] [address]Dr. Swathi Reis Urea nitrogen [Mass/Vol] 16.0 mg/dL Normal 7.0-18.0 [facility] Comment on above: Performed By: #### B MEDICAL OFFICE ASSISTANT, CMP ####[facility] Tuurzvurej[address] [place], [place] [address]Dr. Swathi Reis Urea nitrogen/Creatinine [Mass ratio] 10.9 mg/mg Normal [facility] Comment on above: Performed By: #### B MEDICAL OFFICE ASSISTANT, CMP ####[facility] Lcaspofqyg056[address] [place], [place] [address]Dr. Swathi Reis XR CHEST 2 Von 07-06-2022 XR CHEST 2 V Normal [facility] BLOOD GASES BTYon 07-05-2022 02 MODE NASAL CANNULA Normal [facility] Comment on above: Performed By: #### A BG ####[facility] Nwgkdkmrkf[address] [place], [place] [address]Dr. Inessatracy Chato ALLENS TEST Positive Normal [facility] Comment on above: Performed By: #### A BG ####[facility] Ikwofseklz64[address] [place] [address]Dr. Swathi Reis Base excess Calc (Bld) [Moles/Vol] 3.1 mmol/L Critically high -2.0-2.0 [facility] Comment on above: Performed By: #### A BG ####[facility] Pwdztljyir[address] [place], [place] [address]Dr. Swathi Reis BIPAP PRESSURE Normal [facility] Comment on above: Performed By: #### A BG ####[facility] Fcxoajjpco84[address] [place], [place] [address]Dr. Swathi Reis CPAP Normal [facility] Comment on above: Performed By: #### A BG ####[facility] Raiejsztwm[address] [place], [place] [address]Dr. Swathi Reis FIO2 Normal [facility] Comment on above: Performed By: #### A BG ####[facility] Bptygvdmms[address] [place], [place] [address]Dr. Swathi Reis HCO3 (Bld) [Moles/Vol] 27.0 mmol/L Critically high 22.0-26.0 [facility] Comment on above: Performed By: #### A BG ####[facility] Esfzuvydiy[address] [place], [place] [address]Dr. Swathi Reis LPM 5 Normal [facility] Comment on above: Performed By: #### A BG ####[facility] Gmhcvurlax7934[address] [place], [place] [address]Dr. Swathi Reis MINUTE VOLUME Normal [facility] Comment on above: Performed By: #### A BG ####[facility] Aarmigbbur1625[address] [place], [place] [address]Dr. Swathi Reis Oxygen (Bld) [Partial pressure] 71.4 mm[Hg] Critically low 80.0-100.0 [facility] Comment on above: Performed By: #### A BG ####[facility] Ujnykuczff[address] [place], [place] [address]Dr. Swathi Reis Oxygen saturation in Blood 95.5 % Normal 95.0-100.0 [facility] Comment on above: Performed By: #### A BG ####[facility] [address]hfbzdrc[address] [place] [address]Dr. Swathi Reis PCO2 40.2 mmHg Normal 35.0-45.0 [facility] Comment on above: Performed By: #### A BG ####[facility] Lsysyyrtgv9[address] [place] [address]Dr. Swathi Reis PEEP [facility] Comment on above: Performed By: #### A BG ####[facility] Vkvxupdjtq6130 [place] [address]Dr. Swathi Reis pH (Bld) 7.440 [pH] Normal 7.350-7.450 [facility] Comment on above: Performed By: #### A BG ####[facility] Psalvmgact[address] [place], [place] [address]Dr. Swathi Reis PIP [facility] Comment on above: Performed By: #### A BG ####[facility] Yyvdhbolfa[address] [place], [place] [address]Dr. Swathi Reis PS [facility] Comment on above: Performed By: #### A BG ####[facility] Mnttqnwexo[address] [place], [place] [address]Dr. Swathi Reis PUNCTURE SITE RR [place] [facility] Comment on above: Performed By: #### A BG ####[facility] Lzleohohoa[address] [place], [place] [address]Dr. Swathi Reis RATE [facility] Comment on above: Performed By: #### A BG ####[facility] Bpavjthnmm[address] [place], [place] [address]Dr. Swathi Reis VENT MODE [facility] Comment on above: Performed By: #### A BG ####[facility] Nppmeqftwa[address] [place], [place] [address]Dr. Swathi Reis VT [facility] Comment on above: Performed By: #### A BG ####[facility] Tnbubuqcrg[address] [place], [place] [address]Dr. Swathi Reis BNPon 07-05-2022 Natriuretic peptide B (Bld) [Mass/Vol] 2257.0 pg/mL Critically high <=1,800.0 [facility] Comment on above: Performed By: #### H STROPN, CMP, BNP ####[facility] Htdtrljlul23[address] [place] [id number]. Swathi Reis CARDIAC TRINA 3-6on 2 CK [Catalytic activity/Vol] 54 U/L Normal 26-192 [facility] Comment on above: Performed By: #### C MREP ####[facility] [address]ijyhjzst[address] [place] [address]Dr. Swathi Reis CK.MB [Mass/Vol] ng/mL Normal <=3.60 [facility] Comment on above: Performed By: #### C MREP ####[facility] Feyusjbhhq[address] [place] [address]Dr. Swathi Reis HSTROP 18.6 pg/mL Normal 4.0-51.3 [facility] Comment on above: Result Comment: CUT- OFF POINTS HAVE BEEN ESTABLISHED BASED ON THE FOURTH UNIVERSAL DEFINITIONS OF MYOCARDIALINFARCTION. THE UPPER REFERENCE LIMIT (URL) OF TROPONIN, DEFINED THE 99TH PERCENTILE OFcTnI DISTRIBUTION IN A REFERENCE POPULATION, HAS BEEN CONFIRMED THE DECISION THRESHOLDFOR MO DIAGNOSIS. Performed By: #### C MREP ####[facility] [address]nmkwxib[address] [place] [address]Dr. Swathi Reis CK [Catalytic activity/Vol] 38 U/L Normal 26-192 [facility] Comment on above: Performed By: #### C MREP ####[facility] Vthjekdyws27[address] [place] [address]Dr. Swathi Reis CK.MB [Mass/Vol] 0.51 ng/mL Normal <=3.60 [facility] Comment on above: Performed By: #### C MREP ####[facility] Czurqqbwmz5[address] [place] [address]Dr. Swathi Reis HSTROP 16.6 pg/mL Normal 4.0-51.3 [facility] Comment on above: Result Comment: CUT- OFF POINTS HAVE BEEN ESTABLISHED BASED ON THE FOURTH UNIVERSAL DEFINITIONS OF MYOCARDIALINFARCTION. THE UPPER REFERENCE LIMIT (URL) OF TROPONIN, DEFINED THE 99TH PERCENTILE OFcTnI DISTRIBUTION IN A REFERENCE POPULATION, HAS BEEN CONFIRMED THE DECISION THRESHOLDFOR MO DIAGNOSIS. Performed By: #### C MREP ####[facility] Ihdfqokvqr[address] [place] [address]Dr. Swathi Reis CBC W MANUAL DIFFon 07-05-20 22 ATYPICAL LYMPH # Normal [facility] Comment on above: Performed By: #### C JAUNMAN ####[facility] Pktbsmxqtf264[address] [place] [address]Dr. Swathi Reis ATYPICAL LYMPH % Normal [facility] Comment on above: Performed By: #### C NGA ####[facility] Moouwwnidp[address] [place], [place] [address]Dr. Swathi Reis BAND # 0.4 103/ul Critically high 0.0-0.3 [facility] Comment on above: Performed By: #### C NGA ####[facility] Kvjbmpgjxs[address] [place], [place] [address]Dr. Swathi Reis BAND % 2 % Normal 0-5 [facility] Comment on above: Performed By: #### C NGA ####[facility] Vuuznjptfz[address] [place], [place] [address]Dr. Swathi Reis BASOM # 0.00 103/ul Normal 0.00-0.10 [facility] Comment on above: Performed By: #### C NGA ####[facility] Rzwndlmfao[address] [place], [place] [address]Dr. Swathi Reis BASOM % 0.0 % Critically low 0.2-2.0 [facility] Comment on above: Performed By: #### C NGA ####[facility] Qcmreyjuys02[address] [place], [place] [address]Dr. Swathi Reis BLAST # Normal [facility] Comment on above: Performed By: #### C NGA ####[facility] Cumblimabg[address] [place] [address]Dr. Swathi Reis BLAST % Normal [facility] Comment on above: Performed By: #### C NGA ####[facility] Wzaltjgeyf0106 [place], [place] [address]Cr. Swathi Reis CORRECTED WBC Normal 4.0-11.[address] [facility] Comment on above: Performed By: #### C NGA ####[facility] Efpxozcqif5[address] [place] [address]Dr. Swathi Reis EOS # 0.00 103/ul Normal 0.00-0.70 [facility] Comment on above: Performed By: #### C NGA ####[facility] Pqosmvwcgx2970 [place] [address]Dr. Swathi Reis EOS% 0.0 % Critically low 0.9-7.0 [facility] Comment on above: Performed By: #### C NGA ####[facility] Aghlbqkqof10[address] [place] [address]Dr. Swathi Reis HCT 32.7 % Critically low 36.0-48.0 [facility] Comment on above: Performed By: #### C NGA ####[facility] Rmjhhleonm7809 [place] [address]Dr. Swathi Reis HGB 10.6 g/dl Critically low 12.0-16.0 [facility] Comment on above: Performed By: #### C NGA ####[facility] Ewdpaumxwk26[address] [place] [address]Dr. Swathi Reis LYMPHM # 0.84 103/ul Critically low 1.20-3.80 [facility] Comment on above: Performed By: #### C NGA ####[facility] Maxztvzerb7594 [place] [address]Dr. Swathi Reis LYMPHM% 4.0 % Critically low 20.5-60.0 [facility] Comment on above: Performed By: #### C NGA ####[facility] Asxffbjugx3396 [place] [address]Dr. Swathi Reis MCH 30.1 pg Normal 26.7-34.0 [facility] Comment on above: Performed By: #### C NGA ####[facility] U[address]vz[address] [place], [place] [id number]. Swathi Reis MCHC 32.4 g/dl Normal 29.9-35.2 [facility] Comment on above: Performed By: #### C NGA ####[facility] Vnrzzzacpx8155 [place] [id number]. Swathi Reis MCV 92.9 fL Normal 81.0-99.0 [facility] Comment on above: Performed By: #### C NGA ####[facility] Uwriaemech7[address] [place] [address]Dr. Swathi Reis METAMYELOCYTE # Normal [facility] Comment on above: Performed By: #### C NGA ####[facility] Iuucooczxn0660 [place] [address]Dr. Swathi Reis METAMYELOCYTE % Normal [facility] Comment on above: Performed By: #### C NGA ####[facility] Yjpvcpebfa[address] [place], [place] [id number]. Swathi Reis MONOM# 1.88 103/ul Critically high 0.30-0.80 [facility] Comment on above: Performed By: #### C NGA ####[facility] Fbcyfuoubp[address] [place] [address]Dr. Swathi Reis MONOM% 9.0 % Normal 1.7-12.0 [facility] Comment on above: Performed By: #### C NGA ####[facility] Ixdtklnvyp[address] [place] [id number]. Swathi Reis MPV 10.6 fL Normal 9.5-13.5 [facility] Comment on above: Performed By: #### C NGA ####[facility] Tnororqnst[address] [place] [id number]. Swathi Reis MYELOCYTE # Normal [facility] Comment on above: Performed By: #### C NGA ####[facility] Byiyfsuriv[address] [place] [id number]. Swathi Reis MYELOCYTE % Normal [facility] Comment on above: Performed By: #### C NGA ####[facility] Eejloenkpw[address] [place] [id number]. Swathi Reis NRBC Normal [facility] Comment on above: Performed By: #### C NGA ####[facility] Qpidmhdkoj9200 [place], [place] [address]Ry. Swathi Reis PLT 335 103/ul Normal 150-450 [facility] Comment on above: Performed By: #### C NGA ####[facility] Rdlsaxlqgr1496 [place], [place] [address]Rp. Swathi Reis RBC 3.52 106/ul Critically low 4.20-5.40 [facility] Comment on above: Performed By: #### C NGA ####[facility] Vhqmbsfoey1620 [place], [place] [address]Hv. Swathi Reis RDW 13.5 % Normal 11.0-15.0 [facility] Comment on above: Performed By: #### C NGA ####[facility] Prnlvlipcc0935 [place], [place] [address]Yw. Swathi Reis SEG # 17.76 103/ul Critically high 1.40-6.50 [facility] Comment on above: Performed By: #### C NGA ####[facility] Vrgcpvdtma9741 [place], [place] [address]Wh. Swathi Reis SEG % 85.0 % Critically high 43.0-75.0 [facility] Comment on above: Performed By: #### C NGA ####[facility] Dkkickdcvw9245 [place], [place] [address]Jz. Swathi Reis WBC 20.9 103/ul Critically high 4.0-11.0 [facility] Comment on above: Performed By: #### C NGA ####[facility] Zgncurdldk7601 [place], [place] [address]Re. Swathi Reis CTA CHEST WO W CONon 022 CTA CHEST WO W CON Normal [facility] CULTURE BLOODon 07-05-2022 Microscopic examination of blood, culture Culture Observations: NO GROWTH AT 5 DAYS. Normal [facility] Comment on above: Performed By: #### B LDCX2 ####[facility] Utnfsndgoh12[address] [place] [id number]. Yitracy Reis Microscopic examination of blood, culture Culture Observations: NO GROWTH AT 5 DAYS. Normal [facility] Comment on above: Performed By: #### B LDCX1 ####[facility] Tgbobotsrd4[address] [place] [address]Dr. Swathi Reis [facility]on [facility]-23 SARS-CoV-2 (COVID-19) RNA ÓSCAR+probe Ql (Unsp spec) Not detected Normal NOT DETECTED [facility] Comment on above: Result Comment: When [...] for this test is supported by the [place] Child Caregiver of Health and Human Service's declaration that [...] be used). Performed By: #### C VDTBH ####[facility] Nkdahmzugw[address] [place] [address]Dr. Swathi Reis D-DIMERon 07-05-2022 D-DIMER 2.17 mg/L FEU Critically high <=0.59 [facility] Comment on above: Performed By: #### P T, DDIM, PTT ####[facility] Cwbswyjenj8034 [place] [address]Dr. Inessatracy Reis D-DIMER COMMENTS SEE BELOW Normal [facility] Comment on above: Result Comment: Incr eases [...] Performed By: #### P T, DDIM, PTT ####[facility] Fdmxjcjkvc28[address] [place] [address]Dr. Swathi Reis LACTATE/LACTIC ACIDon 2021 Lactate [Moles/Vol] 2.5 mmol/L Critically high 0.4-1.9 [facility] Comment on above: Performed By: #### L ACT ####[facility] Rjtxuxwlzg7262 [place] [address]Dr. Swathi Reis Lactate [Moles/Vol] 3.2 mmol/L Critically high 0.4-1.9 [facility] Comment on above: Performed By: #### L ACT ####[facility] [address]ixaq[address]zj[address] [place], [place] [address]Dr. Swathi Reis POINT OF CARE GLUCOSEon 06-23 Glucose [Mass/Vol] 179 mg/dL Critically high 74-106 [facility] Comment on above: Performed By: #### P OCGLUC ####[facility] Ezmmwqbfrg[address] [place], [place] [address]Dr. Swathi Reis PROF 14(COMP METB)on 022 Albumin [Mass/Vol] 3.2 g/dL Critically low 3.4-5.0 [facility] Comment on above: Performed By: #### H STROPN, CMP, BNP ####[facility] Boywfowvvf[address] [place] [address]Dr. Swathi Reis Albumin/Globulin [Mass ratio] 0.8 {ratio} Normal [facility] Comment on above: Performed By: #### H STROPN, CMP, BNP ####[facility] Lckdtswjkw1838 [place] [address]Dr. Swathi Reis ALP [Catalytic activity/Vol] 98 U/L Normal 46-116 [facility] Comment on above: Performed By: #### H STROPN, CMP, BNP ####[facility] Fdymumbwqf1402 [place] [id number]. Swathi Reis ALT [Catalytic activity/Vol] 18 U/L Normal 14-59 [facility] Comment on above: Performed By: #### H STROPN, CMP, BNP ####[facility] Kykfqrmtxm0475 [place] [address]Dr. Swathi Reis Anion gap [Moles/Vol] 11.5 mmol/L Normal [facility] Comment on above: Performed By: #### H STROPN, CMP, BNP ####[facility] Rshnytrstq0404 [place] [address]Dr. Swathi Reis AST [Catalytic activity/Vol] 16 U/L Normal 15-37 [facility] Comment on above: Performed By: #### H STROPN, CMP, BNP ####[facility] Rgjofmmtyv4009 [place] [address]Dr. Swathi Reis Bilirubin [Mass/Vol] 0.7 mg/dL Normal 0.2-1.0 [facility] Comment on above: Performed By: #### H STROPN, CMP, BNP ####[facility] Nwhusxieid7198 [place] [address]Dr. Swathi Reis Calcium [Mass/Vol] 9.3 mg/dL Normal 8.5-10.1 [facility] Comment on above: Performed By: #### H STROPN, CMP, BNP ####[facility] Lforifklzy5626 [place] [address]Dr. Swathi Reis Chloride [Moles/Vol] 100 mmol/L Normal 98-107 [facility] Comment on above: Performed By: #### H STROPN, CMP, BNP ####[facility] Czdwqwbfit5963 [place] [address]Dr. Swathi Reis CO2 [Moles/Vol] 29.5 mmol/L Normal 21.0-32.0 [facility] Comment on above: Performed By: #### H STROPN, CMP, BNP ####[facility] Hmszgzzpmg0454 [place] [address]Dr. Swathi Reis Creatinine [Mass/Vol] 1.66 mg/dL Critically high 0.55-1.02 [facility] Comment on above: Performed By: #### H STROPN, CMP, BNP ####[facility] Zeacvadffq0985 [place] [address]Dr. Swathi Reis EGFR-AF RWANDAN 36 mL/min/1.73m2 Critically low >=60 [facility] Comment on above: Performed By: #### H STROPN, CMP, BNP ####[facility] Iifvtalbxt3994 [place] [address]Dr. Swathi Reis EGFR-NON AF RWANDAN 30 mL/min/1.73m2 Critically low >=60 [facility] Comment on above: Performed By: #### H STROPN, CMP, BNP ####[facility] Domlsrkeey[address] [place], [place] [address]Dr. Swathi Reis Globulin (S) [Mass/Vol] 4.0 g/dL Normal [facility] Comment on above: Performed By: #### H STROPN, CMP, BNP ####[facility] Tlqaqobdlx[address] [place], [place] [address]Dr. Swathi Reis Glucose [Mass/Vol] 247 mg/dL Critically high 74-106 [facility] Comment on above: Performed By: #### H STROPN, CMP, BNP ####[facility] Fpftfvockx[address] [place], [place] [address]Dr. Swathi Reis Potassium [Moles/Vol] 4.0 mmol/L Normal 3.5-5.1 [facility] Comment on above: Performed By: #### H STROPN, CMP, BNP ####[facility] Xapusjepin[address] [place], [place] [address]Dr. Swathi Reis Protein [Mass/Vol] 7.2 g/dL Normal 6.4-8.2 [facility] Comment on above: Performed By: #### H STROPN, CMP, BNP ####[facility] Zzilchhlrn9[address] [place] [address]Dr. Swathi Reis Sodium [Moles/Vol] 137 mmol/L Normal 136-145 [facility] Comment on above: Performed By: #### H STROPN, CMP, BNP ####[facility] Sjjyoiothq1812 [place] [address]Dr. Swathi Reis Urea nitrogen [Mass/Vol] 22.0 mg/dL Critically high 7.0-18.0 [facility] Comment on above: Performed By: #### H STROPN, CMP, BNP ####[facility] Bpyspyikor0110 [place] [address]Dr. Swathi Reis Urea nitrogen/Creatinine [Mass ratio] 13.3 mg/mg Normal [facility] Comment on above: Performed By: #### H STROPN, CMP, BNP ####[facility] Osvjirlzxe5[address] [place] [address]Dr. Swathi Reis PROTIMEon 07-05-2022 INR Coag (PPP) [Relative time] 1.10 {INR} Normal [facility] Comment on above: Performed By: #### P T, DDIM, PTT ####[facility] Epbteebvjf[address] [place], [place] [address]Dr. Swathi Reis INR GUIDELINES SEE BELOW Normal [facility] Comment on above: Result Comment: HARRIETT RED INR: 2.0 - 3.0 CONDITIONS NOT LISTED BELOW 2.5 - 3.5 FOR PROSTHETIC HEART VALVE REPLACEMENT 2.5 - 3.5 RECURRENT THROMBOSIS Performed By: #### P T, DDIM, PTT ####[facility] Bupjrxkkoq[address] [place], [place] [address]Dr. Swathi Reis PT Coag (PPP) [Time] 11.8 s Critically high 9.0-11.6 [facility] Comment on above: Performed By: #### P T, DDIM, PTT ####[facility] Klqsvtepkt[address] [place], [place] [address]Dr. Swathi Reis PTTon 07-05-2022 aPTT Coag (Bld) [Time] 27.2 s Normal 22.3-36.2 [facility] Comment on above: Performed By: #### P T, DDIM, PTT ####[facility] Qcdbloqtel508[address] [place], [place] [address]Dr. Swathi Reis TROPONIN, HIGH SENSITIVITYon 07-05-2022 HSTROP 16.2 pg/mL Normal 4.0-51.3 [facility] Comment on above: Result Comment: CUT- OFF POINTS HAVE BEEN ESTABLISHED BASED ON THE FOURTH UNIVERSAL DEFINITIONS OF MYOCARDIALINFARCTION. THE UPPER REFERENCE LIMIT (URL) OF TROPONIN, DEFINED THE 99TH PERCENTILE OFcTnI DISTRIBUTION IN A REFERENCE POPULATION, HAS BEEN CONFIRMED THE DECISION THRESHOLDFOR MO DIAGNOSIS. Performed By: #### H STROPN, CMP, BNP ####[facility] Dtithkjeot8913 [place], [place] [address]Ff. 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 Authentication Interface Message Text EMERGENCY TRIAGE, TREAT AND TRANSPORT (ET3) DOCUMENTATION OF TELEHEALTH VISIT Date / Time: 05/19/2022 / 1130 Name: Andrew Barros : 1945 SSN: (Not on file) EMS Agency: [facility] [x] Verbal consent obtained [] Implied [...] Completed by: Kristian Mcwilliams MD Normal [facility] CBC AUTO DIFFon 05-07-2022 BASO # 0.1 103/ul Normal 0.0-0.1 [facility] Comment on above: Performed By: #### C BC ####[facility] Imwpvzzogs[address] [place], [place] [address]DrOtto Reis Basophils/100 WBC (Bld) 0.5 % Normal 0.2-2.0 [facility] Comment on above: Performed By: #### C BC ####[facility] Dyzfkoohgq[address] [place], [place] [address]DrOtto Reis EO # 0.1 103/ul Normal 0.0-0.7 [facility] Comment on above: Performed By: #### C BC ####[facility] Lhxmofweiv[address] [place], [place] [address]DrOtto Reis Eosinophils/100 WBC (Bld) 1.1 % Normal 0.9-7.0 [facility] Comment on above: Performed By: #### C BC ####[facility] Ujuhkmerjb[address] [place], [place] [address]DrOtto Reis Erythrocyte distribution width (RBC) [Ratio] 13.2 % Normal 11.0-15.0 [facility] Comment on above: Performed By: #### C BC ####[facility] Dsjdxxecpx9[address] [place], [place] [address]DrOtto Reis Hematocrit (Bld) [Volume fraction] 40.9 % Normal 36.0-48.0 [facility] Comment on above: Performed By: #### C BC ####[facility] Zfoqajjwsi7348 [place] [address]Dr. Swathi Reis Hemoglobin (Bld) [Mass/Vol] 12.8 g/dL Normal 12.0-16.0 [facility] Comment on above: Performed By: #### C BC ####[facility] Frswypimoz6743 [place] [address]Dr. Inessatracy Reis IG # 0.04 10e3/ul Critically high 0.00-0.03 [facility] Comment on above: Performed By: #### C BC ####[facility] Mknbpatmtu116[address] [place], [place] [address]Dr. Swathi Reis IG % 0.4 % Normal 0.0-0.5 [facility] Comment on above: Performed By: #### C BC ####[facility] Goujuieizb12[address] [place], [place] [address]DrOtto Reis LYMPH # 1.4 103/ul Normal 1.2-3.8 [facility] Comment on above: Performed By: #### C BC ####[facility] Wvvoaprktz325[address] [place], [place] [address]DrOtto Swathi Chato Lymphocytes/100 WBC (Bld) 13.2 % Critically low 20.5-60.0 [facility] Comment on above: Performed By: #### C BC ####[facility] Ummmvuylxb64[address] [place], [place] [address]DrOtto Inessatracy Reis MANUAL DIFF REQ NO Normal [facility] Comment on above: Performed By: #### C BC ####[facility] Njdihkqtht125[address] [place], [place] [address]Dr. Swathi Reis MCH (RBC) [Entitic mass] 29.5 pg Normal 26.7-34.0 [facility] Comment on above: Performed By: #### C BC ####[facility] Fkfhgqnbsv268[address] [place], [place] [address]Dr. Swathi Reis MCHC (RBC) [Mass/Vol] 31.3 g/dL Normal 29.9-35.2 [facility] Comment on above: Performed By: #### C BC ####[facility] Dncgzwepbr0637 [place] [address]DrOtto Reis MCV (RBC) [Entitic vol] 94.2 fL Normal 81.0-99.0 [facility] Comment on above: Performed By: #### C BC ####[facility] Ghvrdhhlat7[address] [place], [place] [address]DrOtto Reis MONO # 0.9 103/ul Critically high 0.3-0.8 [facility] Comment on above: Performed By: #### C BC ####[facility] Gijzsznvdd048[address] [place], [place] [address]DrOtto Reis Monocytes/100 WBC (Bld) 8.9 % Normal 1.7-12.0 [facility] Comment on above: Performed By: #### C BC ####[facility] Ufdtarlzoy[address] [place], [place] [address]DrOtto Reis NEUT # 7.8 103/ul Critically high 1.4-6.5 [facility] Comment on above: Performed By: #### C BC ####[facility] Wvalxvjeff32[address] [place], [place] [address]DrOtto Reis Neutrophils/100 WBC (Bld) 75.9 % Critically high 43.0-75.0 [facility] Comment on above: Performed By: #### C BC ####[facility] Mtljbvdurb[address] [place], [place] [address]DrOtto Reis Platelet mean volume (Bld) [Entitic vol] 10.7 fL Normal 9.5-13.5 [facility] Comment on above: Performed By: #### C BC ####[facility] Azsxkkrzfq[address] [place], [place] [address]DrOtto Reis PLT 257 103/ul Normal 150-450 [facility] Comment on above: Performed By: #### C BC ####[facility] Hohpwrmukp08[address] [place], [place] [address]DrOtto Reis RBC 4.34 106/ul Normal 4.20-5.40 [facility] Comment on above: Performed By: #### C BC ####[facility] Octhjtwbcr4866 [place] [address]Dr. Swathi Reis WBC 10.2 103/ul Normal 4.0-11.0 [facility] Comment on above: Performed By: #### C BC ####[facility] Lskztmsmxn5368 [place] [address]Dr. Swathi Reis Covid-19 PCR ([facility]on 04-23 SARS-CoV-2 (COVID-19) RNA ÓSCAR+probe Ql (Unsp spec) Not detected Normal NOT DETECTED [facility] Comment on above: Result Comment: This test is not yet approved or cleared by the [place] FDA. When there are no FDA-approved or cleared tests available, and other criteria are met, FDA can make tests available under an emergency access mechanism called an Emergency Use Authorization (EUA). The EUA for this test is supported by the [place] of Health and Human Service's (HHS's) declaration [...] with SARS-CoV-2. Performed By: #### C VDTBH ####[facility] Aioiidvzkw88[address] [place], [place] [address]Of. Swathi Reis PROF CHEM 8 (BAS METB)on Anion gap [Moles/Vol] 12.0 mmol/L Normal [facility] Comment on above: Performed By: #### B MP ####[facility] Ckrmqyddnf8970 [place] [address]Dr. Swathi Reis Calcium [Mass/Vol] 9.7 mg/dL Normal 8.5-10.1 [facility] Comment on above: Performed By: #### B MP ####[facility] Wcjvmqtvwc4224 [place] [address]Dr. Swathi Chato Chloride [Moles/Vol] 102 mmol/L Normal 98-107 [facility] Comment on above: Performed By: #### B MP ####[facility] Asiwijfnre2861 [place] [address]Dr. Swathi Chato CO2 [Moles/Vol] 31.8 mmol/L Normal 21.0-32.0 [facility] Comment on above: Performed By: #### B MP ####[facility] Pmikyybqjv[address] [place], [place] [address]Dr. Inessatracy Chato Creatinine [Mass/Vol] 1.22 mg/dL Critically high 0.55-1.02 [facility] Comment on above: Performed By: #### B MP ####[facility] Zztgbzczpv96[address] [place], [place] [address]Dr. Inessatracy Chato EGFR-AF RWANDAN 52 mL/min/1.73m2 Critically low >=60 [facility] Comment on above: Performed By: #### B MP ####[facility] Kkaqacjanr67[address] [place], [place] [address]Dr. Inessatracy Chato EGFR-NON AF RWANDAN 43 mL/min/1.73m2 Critically low >=60 [facility] Comment on above: Performed By: #### B MP ####[facility] Nchirkywci49[address] [place], [place] [address]Dr. Inessatracy Chato Glucose [Mass/Vol] 249 mg/dL Critically high 74-106 [facility] Comment on above: Performed By: #### B MP ####[facility] Dbchredzyc704[address] [place], [place] [address]Dr. Swathi Reis Potassium [Moles/Vol] 3.8 mmol/L Normal 3.5-5.1 [facility] Comment on above: Performed By: #### B MP ####[facility] Leohniwabg50[address] [place], [place] [address]Dr. Swathi Reis Sodium [Moles/Vol] 142 mmol/L Normal 136-145 [facility] Comment on above: Performed By: #### B MP ####[facility] Dbvglqlxph178[address] [place], [place] [address]Dr. Swathi Reis Urea nitrogen [Mass/Vol] 21.0 mg/dL Critically high 7.0-18.0 [facility] Comment on above: Performed By: #### B MP ####[facility] Zjluwqzsjp55[address] [place], [place] [address]Dr. Swathi Reis Urea nitrogen/Creatinine [Mass ratio] 17.2 mg/mg Normal [facility] Comment on above: Performed By: #### B MP ####[facility] Snuwypfycu336[address] [place], [place] [address]Dr. Swathi Reis CBC AUTO DIFFon 01-12-2022 BASO # 0.1 103/ul Normal 0.0-0.1 [facility] Comment on above: Performed By: #### C BC ####[facility] Zjrvqnghvt45[address] [place], [place] [address]Dr. Swathi Reis Basophils/100 WBC (Bld) 0.7 % Normal 0.2-2.0 [facility] Comment on above: Performed By: #### C BC ####[facility] Klvpewihkg87[address] [place], [place] [address]Dr. Swathi Reis EO # 0.3 103/ul Normal 0.0-0.7 [facility] Comment on above: Performed By: #### C BC ####[facility] Vjokugcfdy677[address] [place], [place] [address]Dr. Swathi Reis Eosinophils/100 WBC (Bld) 2.9 % Normal 0.9-7.0 [facility] Comment on above: Performed By: #### C BC ####[facility] Gzoeisqgxy794[address] [place], [place] [address]Dr. Swathi Reis Erythrocyte distribution width (RBC) [Ratio] 13.2 % Normal 11.0-15.0 [facility] Comment on above: Performed By: #### C BC ####[facility] Qgcpjgljxa72[address] [place], [place] [address]Dr. Swathi Reis Hematocrit (Bld) [Volume fraction] 35.9 % Critically low 36.0-48.0 [facility] Comment on above: Performed By: #### C BC ####[facility] Sksroecigd[address] [place] [address]Dr. wSathi Reis Hemoglobin (Bld) [Mass/Vol] 11.6 g/dL Critically low 12.0-16.0 [facility] Comment on above: Performed By: #### C BC ####[facility] Cyowyxlevr[address] [place], [place] [address]Dr. Swathi Reis IG # 0.03 10e3/ul Normal 0.00-0.03 [facility] Comment on above: Performed By: #### C BC ####[facility] Wkmimjasbo215[address] [place], [place] [address]Dr. Inessatracy Reis IG % 0.4 % Normal 0.0-0.5 [facility] Comment on above: Performed By: #### C BC ####[facility] Crdaqkzumr7[address] [place], [place] [address]DrOtto Inessatracy Reis LYMPH # 1.5 103/ul Normal 1.2-3.8 [facility] Comment on above: Performed By: #### C BC ####[facility] Rzkwmrwiim337[address] [place], [place] [address]DrOtto Inessatracy Reis Lymphocytes/100 WBC (Bld) 17.6 % Critically low 20.5-60.0 [facility] Comment on above: Performed By: #### C BC ####[facility] Loghimnzyw7[address] [place], [place] [address]DrOtto Inessatracy Reis MANUAL DIFF REQ NO Normal [facility] Comment on above: Performed By: #### C BC ####[facility] Irluftgfch348[address] [place], [place] [address]Dr. Inessatracy Reis MCH (RBC) [Entitic mass] 30.0 pg Normal 26.7-34.0 [facility] Comment on above: Performed By: #### C BC ####[facility] Omjrqjamni9[address] [place], [place] [address]Dr. Inessatracy Reis MCHC (RBC) [Mass/Vol] 32.3 g/dL Normal 29.9-35.2 [facility] Comment on above: Performed By: #### C BC ####[facility] Miagiocauy[address] [place], [place] [address]DrOtto Swathi Chato MCV (RBC) [Entitic vol] 92.8 fL Normal 81.0-99.0 [facility] Comment on above: Performed By: #### C BC ####[facility] Rrofwmyvqi165[address] [place], [place] [address]DrOtto Reis MONO # 1.1 103/ul Critically high 0.3-0.8 [facility] Comment on above: Performed By: #### C BC ####[facility] Drzesusmhy229[address] [place], [place] [address]DrOtto Reis Monocytes/100 WBC (Bld) 12.3 % Critically high 1.7-12.0 [facility] Comment on above: Performed By: #### C BC ####[facility] Dthmrcxhvl[address] [place], [place] [address]DrOtto Reis NEUT # 5.7 103/ul Normal 1.4-6.5 [facility] Comment on above: Performed By: #### C BC ####[facility] Sexqdfxdgq[address] [place], [place] [address]DrOtto Reis Neutrophils/100 WBC (Bld) 66.1 % Normal 43.0-75.0 [facility] Comment on above: Performed By: #### C BC ####[facility] Fcunjximlf[address] [place], [place] [address]DrOtto Reis Platelet mean volume (Bld) [Entitic vol] 10.9 fL Normal 9.5-13.5 [facility] Comment on above: Performed By: #### C BC ####[facility] Armyhbxkjr[address] [place], [place] [address]DrOtto Reis PLT 246 103/ul Normal 150-450 [facility] Comment on above: Performed By: #### C BC ####[facility] Oxitzplewe[address] [place], [place] [address]DrOtto Reis RBC 3.87 106/ul Critically low 4.20-5.40 [facility] Comment on above: Performed By: #### C BC ####[facility] [address]bquexzegy[address] [place] [address]Dr. Swathi Reis WBC 8.6 103/ul Normal 4.0-11.0 [facility] Comment on above: Performed By: #### C BC ####[facility] Bvcartdzho[address] [place] [address]Dr. Swathi Reis CRPon 01-12-2022 CRP [Mass/Vol] mg/L Normal <=1.0 [facility] Comment on above: Performed By: #### C MP, CRP ####[facility] [address]btch[address]jis[address] [place] [address]Dr. Swathi Reis POINT OF CARE GLUCOSEon 12-23 Glucose [Mass/Vol] 95 mg/dL Normal 74-106 [facility] Comment on above: Performed By: #### P OCGLUC ####[facility] Ppfkchxafc[address] [place] [address]Dr. Swathi Chato PROF 14(COMP METB)on 022 Albumin [Mass/Vol] 2.9 g/dL Critically low 3.4-5.0 [facility] Comment on above: Performed By: #### C MP, CRP ####[facility] Giscwniyus[address] [place] [address]Dr. Swathi Reis Albumin/Globulin [Mass ratio] 0.8 {ratio} Normal [facility] Comment on above: Performed By: #### C MP, CRP ####[facility] Smxeyzuxad[address] [place] [address]Dr. Swathi Reis ALP [Catalytic activity/Vol] 91 U/L Normal 46-116 [facility] Comment on above: Performed By: #### C MP, CRP ####[facility] Djwyxkmtiz[address] [place] [address]Dr. Swathi Reis ALT [Catalytic activity/Vol] 18 U/L Normal 14-59 [facility] Comment on above: Performed By: #### C MP, CRP ####[facility] Pxicyiefta[address] [place], [place] [address]Dr. Swathi Reis Anion gap [Moles/Vol] 9.1 mmol/L Normal [facility] Comment on above: Performed By: #### C MP, CRP ####[facility] Zxcjsfvtme[address] [place], [place] [address]Dr. Swathi Reis AST [Catalytic activity/Vol] 17 U/L Normal 15-37 [facility] Comment on above: Performed By: #### C MP, CRP ####[facility] Oojymmfwhk[address] [place], [place] [address]Dr. Swathi Reis Bilirubin [Mass/Vol] 0.6 mg/dL Normal 0.2-1.3 [facility] Comment on above: Performed By: #### C MP, CRP ####[facility] Kbnlsucrkl[address] [place], [place] [address]Dr. Swathi Reis Calcium [Mass/Vol] 8.6 mg/dL Normal 8.5-10.1 [facility] Comment on above: Performed By: #### C MP, CRP ####[facility] Sbobcznjqt24[address] [place], [place] [address]Dr. Swathi Reis Chloride [Moles/Vol] 104 mmol/L Normal 98-107 [facility] Comment on above: Performed By: #### C MP, CRP ####[facility] Boshfagaij[address] [place], [place] [address]Dr. Swathi Reis CO2 [Moles/Vol] 32.1 mmol/L Critically high 22.0-30.0 [facility] Comment on above: Performed By: #### C MP, CRP ####[facility] Jbuoxfriik[address] [place], [place] [address]Dr. Swathi Reis Creatinine [Mass/Vol] 0.96 mg/dL Normal 0.52-1.04 [facility] Comment on above: Performed By: #### C MP, CRP ####[facility] Qoggmelypd84[address] [place], [place] [address]Dr. Swathi Reis EGFR-AF RWANDAN >60 Normal >=60 [facility] Comment on above: Performed By: #### C MP, CRP ####[facility] P[address]omy[address]zegd[address] [place] [id number]. Swathi Reis EGFR-NON AF RWANDAN 56 mL/min/1.73m2 Critically low >=60 [facility] Comment on above: Performed By: #### C MP, CRP ####[facility] Ltisoborgh36[address] [place] [address]Dr. Swathi Reis Globulin (S) [Mass/Vol] 3.5 g/dL Normal [facility] Comment on above: Performed By: #### C MP, CRP ####[facility] Ajholcrsbt7137 [place] [address]Dr. Swathi Reis Glucose [Mass/Vol] 114 mg/dL Critically high 74-106 [facility] Comment on above: Performed By: #### C MP, CRP ####[facility] Ldkykfcypp5073 [place] [address]Dr. Swathi Reis Potassium [Moles/Vol] 3.2 mmol/L Critically low 3.4-5.0 [facility] Comment on above: Performed By: #### C MP, CRP ####[facility] Aviuizpcox[address] [place] [address]Dr. Swathi Reis Protein [Mass/Vol] 6.4 g/dL Normal 6.1-8.2 [facility] Comment on above: Performed By: #### C MP, CRP ####[facility] Ftzwhleroj[address] [place] [address]Dr. Swathi Reis Sodium [Moles/Vol] 142 mmol/L Normal 137-145 [facility] Comment on above: Performed By: #### C MP, CRP ####[facility] Guoeebpnrt52[address] [place] [address]Dr. Swathi Reis Urea nitrogen [Mass/Vol] 20.0 mg/dL Critically high 7.0-18.0 [facility] Comment on above: Performed By: #### C MP, CRP ####[facility] Izkqumbynw4688 [place] [address]Dr. Swathi Reis Urea nitrogen/Creatinine [Mass ratio] 20.8 mg/mg Normal [facility] Comment on above: Performed By: #### C MP, CRP ####[facility] Kfbxlrjjtw[address] [place], [place] [address]Dr. Swathi Reis T3, TOTAL (TRIIODOTHYRONINE) on 01-12-2022 T3, TOTAL 79 ng/dL Normal 71-180 [facility] Comment on above: Performed By: #### T 3TOTAL ####[facility] Ocdbsdgrop[address] [place], [place] [address]Dr. Swathi Reis CBC AUTO DIFFon 01-11-2022 BASO # 0.1 103/ul Normal 0.0-0.1 [facility] Comment on above: Performed By: #### C BC ####[facility] Qjkwyrdsei[address] [place], [place] [address]Dr. Swathi Reis Basophils/100 WBC (Bld) 0.5 % Normal 0.2-2.0 [facility] Comment on above: Performed By: #### C BC ####[facility] Hpouypfiph25[address] [place], [place] [address]Dr. Swathi Reis EO # 0.1 103/ul Normal 0.0-0.7 [facility] Comment on above: Performed By: #### C BC ####[facility] Bubeoaytqs26[address] [place], [place] [address]Dr. Swathi Reis Eosinophils/100 WBC (Bld) 1.1 % Normal 0.9-7.0 [facility] Comment on above: Performed By: #### C BC ####[facility] Dxkfacxozv[address] [place], [place] [address]Dr. Swathi Reis Erythrocyte distribution width (RBC) [Ratio] 13.1 % Normal 11.0-15.0 [facility] Comment on above: Performed By: #### C BC ####[facility] Zkoiysxzfw427[address] [place], [place] [address]Dr. Swathi Reis Hematocrit (Bld) [Volume fraction] 39.1 % Normal 36.0-48.0 [facility] Comment on above: Performed By: #### C BC ####[facility] Nvuvzcjjyu[address] [place], [place] [address]Dr. Swathi Chato Hemoglobin (Bld) [Mass/Vol] 12.7 g/dL Normal 12.0-16.0 [facility] Comment on above: Performed By: #### C BC ####[facility] Uwbqzalprb8[address] [place] [address]Dr. Inessatracy Reis IG # 0.04 10e3/ul Critically high 0.00-0.03 [facility] Comment on above: Performed By: #### C BC ####[facility] Tfemqoqfke[address] [place] [address]Dr. Swathi Reis IG % 0.4 % Normal 0.0-0.5 [facility] Comment on above: Performed By: #### C BC ####[facility] Guegwgemsw36[address] [place] [address]DrOtto Reis LYMPH # 1.4 103/ul Normal 1.2-3.8 [facility] Comment on above: Performed By: #### C BC ####[facility] Ljuotwslqo8457 [place] [address]Dr. Swathi Reis Lymphocytes/100 WBC (Bld) 12.4 % Critically low 20.5-60.0 [facility] Comment on above: Performed By: #### C BC ####[facility] Zmuitlnhar7307 [place] [address]Dr. Inessatracy Reis MANUAL DIFF REQ NO Normal [facility] Comment on above: Performed By: #### C BC ####[facility] Xufwfoobzw0413 [place] [address]DrOtto Swathi Chato MCH (RBC) [Entitic mass] 30.0 pg Normal 26.7-34.0 [facility] Comment on above: Performed By: #### C BC ####[facility] Vibglfsgie4332 [place] [address]DrOtto Swathi Chato MCHC (RBC) [Mass/Vol] 32.5 g/dL Normal 29.9-35.2 [facility] Comment on above: Performed By: #### C BC ####[facility] Smykhmyllr027[address] [place] [address]Dr. Swathi Reis MCV (RBC) [Entitic vol] 92.4 fL Normal 81.0-99.0 [facility] Comment on above: Performed By: #### C BC ####[facility] Mdmioczogv3056 [place] [address]Dr. Swathi Chato MONO # 1.1 103/ul Critically high 0.3-0.8 [facility] Comment on above: Performed By: #### C BC ####[facility] Ysbpebwhqo5166 [place] [address]Dr. Swathi Reis Monocytes/100 WBC (Bld) 10.1 % Normal 1.7-12.0 [facility] Comment on above: Performed By: #### C BC ####[facility] Fksoisbbiv[address] [place], [place] [address]Dr. Inessatracy Chato NEUT # 8.3 103/ul Critically high 1.4-6.5 [facility] Comment on above: Performed By: #### C BC ####[facility] Lwkuivmwsm[address] [place], [place] [address]Dr. Swathi Reis Neutrophils/100 WBC (Bld) 75.5 % Critically high 43.0-75.0 [facility] Comment on above: Performed By: #### C BC ####[facility] Nutmlsyeev6[address] [place] [address]Dr. Swathi Reis Platelet mean volume (Bld) [Entitic vol] 11.3 fL Normal 9.5-13.5 [facility] Comment on above: Performed By: #### C BC ####[facility] Dkhekwhoay[address] [place], [place] [address]Dr. Swathi Reis PLT 292 103/ul Normal 150-450 [facility] Comment on above: Performed By: #### C BC ####[facility] Vxnnhpsxjn8[address] [place], [place] [address]Dr. Swathi Reis RBC 4.23 106/ul Normal 4.20-5.40 [facility] Comment on above: Performed By: #### C BC ####[facility] Ntbcykzipo[address] [place], [place] [address]Dr. Swathi Reis WBC 11.0 103/ul Normal 4.0-11.0 [facility] Comment on above: Performed By: #### C BC ####[facility] Oorrughsri[address] [place], [place] [address]Ky. Swathi Reis CT HEAD WO CONon 01-11-2022 CT HEAD WO CON Normal [facility] CULTURE URINEon 01-11-2022 CULTURE URINE Culture Observations : LIGHT GROWTH OF MIXED GENITAL ELEONORA. NO POTENTIAL PATHOGENS SEEN. Normal [facility] Comment on above: Performed By: #### U RCX ####[facility] Unezlmiuxn5085 [place], [place] [address]Lk. Swathi Reis Covid-19 PCR ([facility])on 12-23 SARS-CoV-2 (COVID-19) RNA ÓSCAR+probe Ql (Unsp spec) Not detected Normal NOT DETECTED [facility] Comment on above: Result Comment: When [...] for this test is supported by the Summer [employer] of [employer] and Human Service's declaration that [...] be used). Performed By: #### C VDTBH ####[facility] Ufberbzwlp2696 [place], [place] [address]Cw. Swathi Reis EEGon 01-11-2022 EEG Normal [facility] ER URINE PROFILEon Bilirubin Ql (U) Negative Normal NEGATIVE [facility] Comment on above: Performed By: #### E RUR ####[facility] Cobbbjqlyw35[address] [place] [address]Dr. Swathi Reis Clarity (U) CLEAR Normal CLEAR [facility] Comment on above: Performed By: #### E RUR ####[facility] Weqthhpixf[address] [place], [place] [address]Dr. Swathi Reis Color (U) LT. YELLOW Normal YELLOW [facility] Comment on above: Performed By: #### E RUR ####[facility] Orznkmgkng[address] [place], [place] [address]Dr. Swathi Reis ERUAHD A micrscopic examina tion will be performed if indicated. Normal [facility] Comment on above: Performed By: #### E RUR ####[facility] Qmfkzulgij20[address] [place], [place] [address]Dr. Swathi Reis Glucose Ql (U) Negative Normal NEGATIVE [facility] Comment on above: Performed By: #### E RUR ####[facility] Lfrwrlncro773[address] [place], [place] [address]Dr. Swathi Reis Hemoglobin Ql (U) Negative Normal NEGATIVE [facility] Comment on above: Performed By: #### E RUR ####[facility] Yrfehbpvsz101[address] [place], [place] [address]Dr. Swathi Reis Ketones Ql (U) Negative Normal NEGATIVE [facility] Comment on above: Performed By: #### E RUR ####[facility] Yhyijqwqlq[address] [place], [place] [address]Dr. Swathi Reis LEUKOCYTES Negative Normal NEGATIVE [facility] Comment on above: Performed By: #### E RUR ####[facility] Yeaxifceuj576[address] [place], [place] [address]Dr. Swathi Reis Nitrite Ql (U) Negative Normal NEGATIVE [facility] Comment on above: Performed By: #### E RUR ####[facility] Pkevltkjyb9[address] [place], [place] [address]Dr. Swathi Reis pH (U) 6.0 [pH] Normal 5-9 [facility] Comment on above: Performed By: #### E RUR ####[facility] Qzaaiqqevw50[address] [place] [address]Dr. Swathi Reis SPEC GRAVITY 1.010 Normal 1.005-<=1.0 25 [facility] Comment on above: Performed By: #### E RUR ####[facility] Linkpuvesh347[address] [place], [place] [address]Dr. Swathi Reis UA PROTEIN Negative Normal NEGATIVE/ TRACE [facility] Comment on above: Performed By: #### E RUR ####[facility] Ohmsphsvak8[address] [place], [place] [address]Dr. Swathi Reis UR MICRO IND NOT INDICATED Normal [facility] Comment on above: Performed By: #### E RUR ####[facility] Eyueldvsnl47[address] [place], [place] [address]Dr. Swathi Reis Urobilinogen Qn (U) 0.2 {Sánchez'U}/dL Normal 0.2 - 1. 0 [facility] Comment on above: Performed By: #### E RUR ####[facility] Hdgsqhhvry[address] [place], [place] [address]Dr. Swathi Reis LACTATE/LACTIC ACIDon 2021 Lactate [Moles/Vol] 0.9 mmol/L Normal 0.7-2.0 [facility] Comment on above: Performed By: #### L ACT ####[facility] Hozdnisbsm24[address] [place], [place] [address]Dr. Swathi Reis Lactate [Moles/Vol] 0.9 mmol/L Normal 0.7-2.0 [facility] Comment on above: Performed By: #### L ACT ####[facility] Gemvnkzxhe727[address] [place], [place] [address]Dr. Swathi Reis POINT OF CARE GLUCOSEon 12-23 Glucose [Mass/Vol] 175 mg/dL Critically high 74-106 [facility] Comment on above: Performed By: #### P OCGLUC ####[facility] Xwzpsgqtyp88[address] [place], [place] [address]Dr. Swathi Reis Glucose [Mass/Vol] 116 mg/dL Critically high 74-106 [facility] Comment on above: Performed By: #### P OCGLUC ####[facility] Zjzoicuwmp05[address] [place] [address]Dr. Swathi Reis PROF 14(COMP METB)on 022 Albumin [Mass/Vol] 3.3 g/dL Critically low 3.4-5.0 Th e [facility] Comment on above: Performed By: #### H STROPN, CMP ####[facility] Rjbcmoxsko1391 [place] [address]Dr. Swathi Reis Albumin/Globulin [Mass ratio] 0.8 {ratio} Normal [facility] Comment on above: Performed By: #### H STROPN, CMP ####[facility] Nupvqzheqn5052 [place] [address]Dr. Swathi Reis ALP [Catalytic activity/Vol] 110 U/L Normal 46-116 [facility] Comment on above: Performed By: #### H STROPN, CMP ####[facility] Zubixdghol5757 [place] [address]Dr. Swathi Reis ALT [Catalytic activity/Vol] 20 U/L Normal 14-59 [facility] Comment on above: Performed By: #### H STROPN, CMP ####[facility] Irtyeovzkq8098 [place] [address]Dr. Swathi Reis Anion gap [Moles/Vol] 15.9 mmol/L Normal [facility] Comment on above: Performed By: #### H STROPN, CMP ####[facility] Yvlwaxeiph5355 [place] [address]Dr. Swathi Reis AST [Catalytic activity/Vol] 24 U/L Normal 15-37 [facility] Comment on above: Performed By: #### H STROPN, CMP ####[facility] Ydgfgvhiiz1782 [place] [address]Dr. Swathi Reis Bilirubin [Mass/Vol] 0.5 mg/dL Normal 0.2-1.3 [facility] Comment on above: Performed By: #### H STROPN, CMP ####[facility] Dlpzwiuucx9188 [place] [address]Dr. Swathi Reis Calcium [Mass/Vol] 9.5 mg/dL Normal 8.5-10.1 [facility] Comment on above: Performed By: #### H RAFFI, CMP ####[facility] Exkpksnbcb9953 [place] [address]Dr. Swathi Reis Chloride [Moles/Vol] 100 mmol/L Normal 98-107 [facility] Comment on above: Performed By: #### H STROPN, CMP ####[facility] Odyyfdfzgb5857 [place] [address]Dr. Inessatracy Reis CO2 [Moles/Vol] 27.8 mmol/L Normal 22.0-30.0 [facility] Comment on above: Performed By: #### H RAFFI, CMP ####[facility] Xkzjtswkdo9[address] [place], [place] [address]Dr. Inessatracy Reis Creatinine [Mass/Vol] 1.21 mg/dL Critically high 0.52-1.04 [facility] Comment on above: Performed By: #### H RAFFI, CMP ####[facility] Rcsgzkwbjz[address] [place], [place] [address]Dr. Inessatracy Chato EGFR-AF RWANDAN 52 mL/min/1.73m2 Critically low >=60 [facility] Comment on above: Performed By: #### H RAFFI, CMP ####[facility] Hywqdxgizu[address] [place], [place] [address]Dr. Inessatracy Chato EGFR-NON AF RWANDAN 43 mL/min/1.73m2 Critically low >=60 [facility] Comment on above: Performed By: #### H STROPN, CMP ####[facility] Peytnhasxa[address] [place], [place] [address]Dr. Swathi Reis Globulin (S) [Mass/Vol] 4.1 g/dL Normal [facility] Comment on above: Performed By: #### H NIGHATPN, CMP ####[facility] Vokcrllbmc[address] [place], [place] [address]Dr. Swathi Reis Glucose [Mass/Vol] 195 mg/dL Critically high 74-106 [facility] Comment on above: Performed By: #### H STROPN, CMP ####[facility] [address]xhacq[address]fz[address] [place], [place] [id number]. Swathi Reis Potassium [Moles/Vol] 3.7 mmol/L Normal 3.4-5.0 [facility] Comment on above: Performed By: #### H RAFFI, CMP ####[facility] Qvfnnzxxiw9813 [place] [address]Dr. Swathi Reis Protein [Mass/Vol] 7.4 g/dL Normal 6.1-8.2 [facility] Comment on above: Performed By: #### H RAFFI, CMP ####[facility] Mmiwdffbqp5099 [place] [address]Dr. Swathi Reis Sodium [Moles/Vol] 140 mmol/L Normal 137-145 [facility] Comment on above: Performed By: #### H RAFFI, CMP ####[facility] Dpyijqojpq5690 [place] [address]Dr. Swathi Reis Urea nitrogen [Mass/Vol] 22.0 mg/dL Critically high 7.0-18.0 [facility] Comment on above: Performed By: #### H RAFFI, CMP ####[facility] Zghuaojxxh8779 [place] [address]Dr. Swathi Reis Urea nitrogen/Creatinine [Mass ratio] 18.2 mg/mg Normal [facility] Comment on above: Performed By: #### H RAFFI, CMP ####[facility] Nzhugdsgml0846 [place] [address]Dr. Swathi Reis T4on 01-11-2022 T4 [Mass/Vol] 9.10 ug/dL Normal 5.53-11.[address] [facility] Comment on above: Performed By: #### T SH, T4 ####[facility] Iiiailrhro3884 [place] [address]Dr. Swathi Reis TROPONIN, HIGH SENSITIVITYon 01-11-2022 HSTROP 13.7 pg/mL Normal 4.0-35.5 [facility] Comment on above: Result Comment: CUT- OFF POINTS HAVE BEEN ESTABLISHED BASED ON THE FOURTH UNIVERSAL DEFINITIONS OF MYOCARDIALINFARCTION. THE UPPER REFERENCE LIMIT (URL) OF TROPONIN, DEFINED THE 99TH PERCENTILE OFcTnI DISTRIBUTION IN A REFERENCE POPULATION, HAS BEEN CONFIRMED THE DECISION THRESHOLDFOR MO DIAGNOSIS. Performed By: #### H STROPN, CMP ####[facility] Ernkgmhqgk9[address] [place], [place] [address]Dr. Swathi Reis TSHon 01-11-2022 TSH 2.618 uIU/mL Normal 0.470-4.[address] [facility] Comment on above: Performed By: #### T SH, T4 ####[facility] Ljdlvjsiaw[address] [place], [place] [address]Dr. Swathi Reis TSH RANGE SEE BELOW Normal [facility] Comment on above: Result Comment: <0.3 4 UIU/ml HYPERTHYROID 0.34-5.60 UIU/ml EUTHYROID >5.60 UIU/ml HYPOTHYROID Performed By: #### T SH, T4 ####[facility] Wkpoehmslp120[address] [place], [place] [address]Dr. Swathi Reis CBC AUTO DIFFon 01-09-2022 BASO # 0.1 103/ul Normal 0.0-0.1 [facility] Comment on above: Performed By: #### C BC ####[facility] Lmczmaunui[address] [place], [place] [address]Dr. Swathi Reis Basophils/100 WBC (Bld) 0.6 % Normal 0.2-2.0 [facility] Comment on above: Performed By: #### C BC ####[facility] Mzmbzynjwm84[address] [place], [place] [address]Dr. Swathi Reis EO # 0.2 103/ul Normal 0.0-0.7 [facility] Comment on above: Performed By: #### C BC ####[facility] Tudonuqmty[address] [place], [place] [address]Dr. Swathi Reis Eosinophils/100 WBC (Bld) 2.7 % Normal 0.9-7.0 [facility] Comment on above: Performed By: #### C BC ####[facility] Zagtmophap450[address] [place], [place] [address]Dr. Swathi Reis Erythrocyte distribution width (RBC) [Ratio] 13.2 % Normal 11.0-15.0 [facility] Comment on above: Performed By: #### C BC ####[facility] Rrpffscrgc2084 [place] [address]Dr. Swathi Reis Hematocrit (Bld) [Volume fraction] 39.7 % Normal 36.0-48.0 [facility] Comment on above: Performed By: #### C BC ####[facility] Rsuykoifox2156 [place] [address]Dr. Swathi Reis Hemoglobin (Bld) [Mass/Vol] 12.7 g/dL Normal 12.0-16.0 [facility] Comment on above: Performed By: #### C BC ####[facility] Fgldxagkwa[address] [place], [place] [address]Dr. Swathi Reis IG # 0.04 10e3/ul Critically high 0.00-0.03 [facility] Comment on above: Performed By: #### C BC ####[facility] Dtjorkyyea[address] [place], [place] [address]Dr. Inessatracy Reis IG % 0.4 % Normal 0.0-0.5 [facility] Comment on above: Performed By: #### C BC ####[facility] Aleekafwuy[address] [place], [place] [address]Dr. Swathi Chato LYMPH # 1.4 103/ul Normal 1.2-3.8 [facility] Comment on above: Performed By: #### C BC ####[facility] Fmvkozeueg[address] [place], [place] [address]Dr. Swathi Chato Lymphocytes/100 WBC (Bld) 15.9 % Critically low 20.5-60.0 [facility] Comment on above: Performed By: #### C BC ####[facility] Rqpvpgwxpw169[address] [place], [place] [address]Dr. Inessatracy Reis MANUAL DIFF REQ NO Normal [facility] Comment on above: Performed By: #### C BC ####[facility] Wivyxrgvry260[address] [place] [address]Dr. Swathi Chato MCH (RBC) [Entitic mass] 30.0 pg Normal 26.7-34.0 [facility] Comment on above: Performed By: #### C BC ####[facility] Wkfnrhjnco[address] [place] [id number]. Swathi Chato MCHC (RBC) [Mass/Vol] 32.0 g/dL Normal 29.9-35.2 [facility] Comment on above: Performed By: #### C BC ####[facility] Nypvyncnwi09[address] [place] [address]Dr. Swathi Chato MCV (RBC) [Entitic vol] 93.9 fL Normal 81.0-99.0 [facility] Comment on above: Performed By: #### C BC ####[facility] Ddfqcklkrx5536 [place] [address]Dr. Inessatracy Chato MONO # 0.9 103/ul Critically high 0.3-0.8 [facility] Comment on above: Performed By: #### C BC ####[facility] Bczcuitegl[address] [place], [place] [address]Dr. Swathi Reis Monocytes/100 WBC (Bld) 9.7 % Normal 1.7-12.0 [facility] Comment on above: Performed By: #### C BC ####[facility] Brgnunweoc[address] [place], [place] [address]Dr. Swathi Chato NEUT # 6.3 103/ul Normal 1.4-6.5 [facility] Comment on above: Performed By: #### C BC ####[facility] Dkvvjsnlin[address] [place], [place] [address]Dr. Swathi Reis Neutrophils/100 WBC (Bld) 70.7 % Normal 43.0-75.0 [facility] Comment on above: Performed By: #### C BC ####[facility] Vwzpnzkxmk[address] [place], [place] [address]Dr. Swathi Reis Platelet mean volume (Bld) [Entitic vol] 10.7 fL Normal 9.5-13.5 [facility] Comment on above: Performed By: #### C BC ####[facility] Urgeowvxij[address] [place], [place] [id number]. Swathi Reis PLT 269 103/ul Normal 150-450 [facility] Comment on above: Performed By: #### C BC ####[facility] K[address]jlzfhzn[address] [place] [id number]. Swathi Reis RBC 4.23 106/ul Normal 4.20-5.40 [facility] Comment on above: Performed By: #### C BC ####[facility] Kyqioyaxmk4[address] [place] [id number]. Swathi Reis WBC 8.9 103/ul Normal 4.0-11.0 [facility] Comment on above: Performed By: #### C BC ####[facility] Nkffunpofv0254 [place] [id number]. Swathi Reis FREE T3on 01-09-2022 FREE T3 2.19 pg/mlL Critically low 2.77-5.27 [facility] Comment on above: Performed By: #### T SH, T4, FT3, LIPID, CMP ####[facility] Znfswqaoyw0849 [place] [address]Dr. Swathi Reis GLYCOHEMOGLOBIN A1Con 2021 ADA RECOMMENDATION ADA THERAPEUTIC TARG ET 6.0 - 7.0 ACTION SUGGESTED > 7.0 Normal [facility] Comment on above: Performed By: #### A 1C ####[facility] Zojiahgqsj4098 [place] [address]Dr. Swathi Reis Glucose [Mass/Vol] 137 mg/dL Normal [facility] Comment on above: Performed By: #### A 1C ####[facility] Zoivkfbavw4588 [place] [address]Dr. Swathi Reis HbA1c (Bld) [Mass fraction] 6.4 % Critically high <=6.0 [facility] Comment on above: Performed By: #### A 1C ####[facility] Clkimqnqat3737 [place] [address]Dr. Swathi Reis LIPID PROFILEon 01-09-2022 CHOL-HDL RATIO NORM SEE BELOW Normal [facility] Comment on above: Result Comment: 3.3 - 4.4 LOW RISK 4.4 - 7.1 AVERAGE RISK 7.1 - 11.0 MODERATE RISK >11.0 HIGH RISK Performed By: #### T SH, T4, FT3, LIPID, CMP ####[facility] Efdxsdclhy4289 [place] [id number]. Swathi Reis Cholesterol [Mass/Vol] 238 mg/dL Critically high <=200 [facility] Comment on above: Performed By: #### T SH, T4, FT3, LIPID, CMP ####[facility] Kbunkztydf[address] [place] [address]Dr. Swathi Reis Cholesterol in HDL [Mass/Vol] 95 mg/dL Critically high 40-60 [facility] Comment on above: Performed By: #### T SH, T4, FT3, LIPID, CMP ####[facility] Xdwxuxmpcu4345 [place] [address]Dr. Swathi Reis Cholesterol in LDL [Mass/Vol] 121.0 mg/dL Normal [facility] Comment on above: Performed By: #### T SH, T4, FT3, LIPID, CMP ####[facility] Dxxxsqbwtd3930 [place] [address]Dr. Swathi Reis Cholesterol.total/Ch olesterol in HDL [Mass ratio] 2.5 {ratio} Normal [facility] Comment on above: Performed By: #### T SH, T4, FT3, LIPID, CMP ####[facility] Tqepjvmoat3083 [place] [address]Dr. Swathi Reis HDL NORMAL > or = 60 mg/dl - LO W CARDIOVASCULAR RISK <40 mg/dl - HIGH CARDIOVASCULAR RISK Normal [facility] Comment on above: Performed By: #### T SH, T4, FT3, LIPID, CMP ####[facility] Iiapozbiwc1365 [place] [address]Dr. Swathi Reis LDL CALC NORMAL SEE BELOW Normal [facility] Comment on above: Result Comment: <100 mg/dl OPTIMAL 100 - 129 mg/dl NEAR OR ABOVE OPTIMAL 130 - 159 mg/dl BORDERLINE HIGH 160 - 189 mg/dl HIGH >190 mg/dl VERY HIGH Performed By: #### T SH, T4, FT3, LIPID, CMP ####[facility] Gewbzqmwhq3167 [place] [address]Dr. Swathi Reis Triglyceride [Mass/Vol] 110 mg/dL Normal <=150 [facility] Comment on above: Performed By: #### T SH, T4, FT3, LIPID, CMP ####[facility] Djrpmyppzv8427 [place] [address]Dr. Swathi Reis VLDL CALC 22.0 mg/dL Normal [facility] Comment on above: Performed By: #### T SH, T4, FT3, LIPID, CMP ####[facility] Xegvkolelb0102 [place] [address]Dr. Swathi Reis PROF 14(COMP METB)on 022 Albumin [Mass/Vol] 3.5 g/dL Normal 3.4-5.0 [facility] Comment on above: Performed By: #### T SH, T4, FT3, LIPID, CMP ####[facility] Snbinuetwc6911 [place] [address]Dr. Swathi Reis Albumin/Globulin [Mass ratio] 0.9 {ratio} Normal [facility] Comment on above: Performed By: #### T SH, T4, FT3, LIPID, CMP ####[facility] Noaqxocada1745 [place] [address]Dr. Swathi Reis ALP [Catalytic activity/Vol] 112 U/L Normal 46-116 [facility] Comment on above: Performed By: #### T SH, T4, FT3, LIPID, CMP ####[facility] Ynuiadvhzd1096 [place] [address]Dr. Swathi Reis ALT [Catalytic activity/Vol] 14 U/L Normal 14-59 [facility] Comment on above: Performed By: #### T SH, T4, FT3, LIPID, CMP ####[facility] Dqshuciiam8886 [place] [address]Dr. Swathi Reis Anion gap [Moles/Vol] 10.4 mmol/L Normal [facility] Comment on above: Performed By: #### T SH, T4, FT3, LIPID, CMP ####[facility] Qagarrvpdr1930 [place] [address]Dr. Swathi Reis AST [Catalytic activity/Vol] 18 U/L Normal 15-37 [facility] Comment on above: Performed By: #### T SH, T4, FT3, LIPID, CMP ####[facility] Sukrxtxefd9936 [place] [address]Dr. Swathi Reis Bilirubin [Mass/Vol] 0.6 mg/dL Normal 0.2-1.3 [facility] Comment on above: Performed By: #### T SH, T4, FT3, LIPID, CMP ####[facility] Ubvenlsmb[address] [place], [place] [address]Dr. Swathi Reis Calcium [Mass/Vol] 9.4 mg/dL Normal 8.5-10.1 [facility] Comment on above: Performed By: #### T SH, T4, FT3, LIPID, CMP ####[facility] Vgnbhlp[address]ri[address] [place], [place] [address]Dr. Swathi Reis Chloride [Moles/Vol] 101 mmol/L Normal 98-107 [facility] Comment on above: Performed By: #### T SH, T4, FT3, LIPID, CMP ####[facility] Brcff[address]vg[address] [place], [place] [address]Dr. Swathi Reis CO2 [Moles/Vol] 33.2 mmol/L Critically high 22.0-30.0 [facility] Comment on above: Performed By: #### T SH, T4, FT3, LIPID, CMP ####[facility] Nlmxhaduyu[address] [place], [place] [address]Dr. Swathi Reis Creatinine [Mass/Vol] 1.13 mg/dL Critically high 0.52-1.04 [facility] Comment on above: Performed By: #### T SH, T4, FT3, LIPID, CMP ####[facility] Nsfrpqvsdm[address] [place], [place] [address]Dr. Swathi Reis EGFR-AF RWANDAN 57 mL/min/1.73m2 Critically low >=60 [facility] Comment on above: Performed By: #### T SH, T4, FT3, LIPID, CMP ####[facility] Yyyitpzzlh[address] [place], [place] [address]Dr. Swathi Reis EGFR-NON AF RWANDAN 47 mL/min/1.73m2 Critically low >=60 [facility] Comment on above: Performed By: #### T SH, T4, FT3, LIPID, CMP ####[facility] Egdwdfcobz5742 [place] [address]Dr. Swathi Reis Globulin (S) [Mass/Vol] 4.1 g/dL Normal [facility] Comment on above: Performed By: #### T SH, T4, FT3, LIPID, CMP ####[facility] Tttnbyttgn4577 [place] [address]Dr. Swathi Reis Glucose [Mass/Vol] 144 mg/dL Critically high 74-106 [facility] Comment on above: Performed By: #### T SH, T4, FT3, LIPID, CMP ####[facility] Sbeksliwdv[address] [place], [place] [address]Dr. Swathi Reis Potassium [Moles/Vol] 3.6 mmol/L Normal 3.4-5.0 [facility] Comment on above: Performed By: #### T SH, T4, FT3, LIPID, CMP ####[facility] Qxtxiwdpwe[address] [place], [place] [address]Dr. Swathi Reis Protein [Mass/Vol] 7.6 g/dL Normal 6.1-8.2 [facility] Comment on above: Performed By: #### T SH, T4, FT3, LIPID, CMP ####[facility] Wdrwflpyrd2276 [place] [address]Dr. Swathi Reis Sodium [Moles/Vol] 141 mmol/L Normal 137-145 [facility] Comment on above: Performed By: #### T SH, T4, FT3, LIPID, CMP ####[facility] Rgiwamgkmi6215 [place] [address]Dr. Swathi Reis Urea nitrogen [Mass/Vol] 22.0 mg/dL Critically high 7.0-18.0 [facility] Comment on above: Performed By: #### T SH, T4, FT3, LIPID, CMP ####[facility] Pbamebthji8602 [place] [address]Dr. Swathi Reis Urea nitrogen/Creatinine [Mass ratio] 19.5 mg/mg Normal [facility] Comment on above: Performed By: #### T SH, T4, FT3, LIPID, CMP ####[facility] Ivzkxquecu67[address] [place] [address]Dr. Swathi Reis T4on 01-09-2022 T4 [Mass/Vol] 8.80 ug/dL Normal 5.53-11.[address] [facility] Comment on above: Performed By: #### T SH, T4, FT3, LIPID, CMP ####[facility] Emhyvrrdhm[address] [place], [place] [address]Dr. Swathi Reis TSHon 01-09-2022 TSH 3.176 uIU/mL Normal 0.470-4.[address] [facility] Comment on above: Performed By: #### T SH, T4, FT3, LIPID, CMP ####[facility] Yqluauxtdq[address] [place], [place] [address]Dr. Inessatracy Reis TSH RANGE SEE BELOW Normal [facility] Comment on above: Result Comment: <0.3 4 UIU/ml HYPERTHYROID 0.34-5.60 UIU/ml EUTHYROID >5.60 UIU/ml HYPOTHYROID Performed By: #### T SH, T4, FT3, LIPID, CMP ####[facility] Hzvmsssaxr[address] [place], [place] [address]Dr. Swathi Reis VITAMIN D 25 OHon 01-09-2022 VIT D 25-OH 64.4 ng/mL Normal [facility] Comment on above: Performed By: #### V ITAD ####[facility] Eqdqbexwaw[address] [place], [place] [address]Dr. Swathi Reis VIT D RANGES SEE BELOW Normal [facility] Comment on above: Result Comment: <20 ng/mL Vit D deficient 20 - <30 ng/mL Vit D insufficient 30 - 100 ng/mL Vit D sufficient >100 ng/mL Potential Toxicity Performed By: #### V ITAD ####[facility] Abfow[address] [place], [place] [address]Dr. Swathi Reis MG MAMM DIAGNOSTIC 3D GISELE CA Don 01-05-2022 MG MAMM DIAGNOSTIC 3D GISELE CAD Normal [facility] CT head/brain wo conon 12-27 CT head/brain wo con [facility] Main Ace [address] [place] [address] CT Scan Report Signed Patient: Andrew Barros MR#: [id number] : 1945 Acct:[id number] Age/Sex: 76 / F ADM Date: 12/27/21 Loc: CT Room: Type: [facility] Attending Dr: Brayden Hernandez MD Ordering [...] Cameron Jr., M.D.12/27/2021 1:17 PM Dictation Location: [place] [address] Transcribed By: [facility] 12/27/21 1317 Dictated By: Tex Cameron Jr, MD 12/27/21 1310 Signed By: 12/27/21 131 Normal [facility] FRESH FROZ PLASMAon 11-24-19 FRESH FROZ PLASMA Normal [facility] Comment on above: Performed By: #### F ####[facility] Qnvkgonuis[address]32 [place], [place] [address] head/brain wo conon 11-17 CT head/brain wo con [facility] Main [address] [place] [address] [address] Scan Report Signed Patient: Andrew Barros MR#: [id number] : 1945 Acct:[id number] Age/Sex: 76 / F ADM Date: 11/17/21 Loc: CT Room: Type: [facility] Attending Dr: Brayden Hernandez MD Ordering [...] Henny Mckeon M.D.11/17/2021 1:35 PM Dictation Location: [place] [address] Transcribed By: SOLOMON 11/17/21 1332 Dictated By: Henny Mckeon MD 11/17/21 1330 Signed By: 11/17/21 1335 [facility] Basic Metabolic Panelon 10-24 Calcium [Mass/Vol] 8.9 mg/dL Normal 8.2-10.2 [facility] Comment on above: Performed By: #### P T #### [facility] [address] [place] [id number] [facility] Chloride [Moles/Vol] 94 mmol/L Low 95-114 [facility] Comment on above: Performed By: #### P T #### [facility] [address] CO2 [Moles/Vol] 22.6 mmol/L Normal 22.0-30.0 [facility] Comment on above: Performed By: #### P T #### [address] Creatinine [Mass/Vol] 1.38 mg/dL High 0.44-1.03 [facility] Comment on above: Performed By: #### P T #### [address] Creatinine Clr Calc Pharmacy 29.48 [facility] Comment on above: Result Comment: PERF ORMED BY: [place] [address] PATHOLOGIST CONDITIONER TUMBLER OPERATOR ADRIAN ROBERTSON M.D. Performed By: #### P T #### [address] Estimated GFR ( Rafaela 45 [facility] Comment on above: Result Comment: GFR estimated reference range: According to KDOQI guidelines, <60 ml/min/1.73m2 is sufficient to diagnose a patient with chronic kidney disease. Performed By: #### P T #### [place] [id number] [place] Estimated GFR (Non- Am 37 [facility] Comment on above: Performed By: #### P T #### [place] [address] [place] Glucose [Mass/Vol] 297 mg/dL High 70-100 [facility] Comment on above: Result Comment: Moran om Glucose Reference Range is dependent on time and content of last meal. Glucose of more than 200 mg/dL in a nonstressed, ambulatory subject supports the diagnosis of Diabetes Mellitus. ADA recommended reference range Performed By: #### P T #### [facility] [address] [place] [id number] [place] Potassium [Moles/Vol] 3.7 mmol/L Normal 3.5-5.1 [facility] Comment on above: Performed By: #### P T #### [facility] [address] [place] [address] [place] Sodium [Moles/Vol] 132 mmol/L Low 136-146 [facility] Comment on above: Performed By: #### P T #### [facility] [address] [place] [address] [place] Urea nitrogen [Mass/Vol] 19 mg/dL Normal 9-23 [facility] Comment on above: Performed By: #### P T #### [facility] [address] [place] [phone] [place] Creatinine and Glomerular fi ltration rate.predicted panel (S/P/Bld)Ordered By: Shaka Echavarria on 11-11-2021 Creatinine [Mass/Vol] 1.38 mg/dL 0.44-1.03 [facility] Estimated glomerular filtrat ion rate (GFR) non- AmericanOrdered By: Shaka Echavarria on 11-11-2021 GFR/1.73 sq M.predicted among non-blacks MDRD (S/P/Bld) [Vol rate/Area] 37 mL/Min [facility] Glucose Glucometer (BldC) [M ass/Vol]Ordered By: Shaka Echavarria on 11-11-2021 Glucose [Mass/Vol] 233 mg/dL [facility] Comment on above: Random Glucose Refer ence Range is dependent on time and content of last meal. Glucose of more than 200 mg/dL in a nonstressed, ambulatory subject supports the diagnosis of Diabetes Mellitus. Glucose Poct Glucometerson 0 11-11-2021 Commemt1 Glu2: Cleaned Meter Normal [facility] Comment on above: Result Comment: PERF ORMED BY: [place] [address] PATHOLOGIST CONDITIONER TUMBLER OPERATOR ADRIAN ROBERTSON M.D. Performed By: #### P T #### [facility] [address] [place] [address] Glucose [Mass/Vol] 233 mg/dL Normal [facility] Comment on above: Result Comment: Moran om Glucose Reference Range is dependent on time and content of last meal. Glucose of more than 200 mg/dL in a nonstressed, ambulatory subject supports the diagnosis of Diabetes Mellitus. Performed By: #### P T #### [facility] [address] [place] [address] Commemt1 Glu2: Cleaned Meter [facility] Comment on above: Result Comment: PERF ORMED BY: [place] [address] PATHOLOGIST CONDITIONER TUMBLER OPERATOR ADRIAN ROBERTSON M.D. Performed By: #### P T #### [address] Glucose [Mass/Vol] 127 mg/dL Normal [facility] Comment on above: Result Comment: [place] om Glucose Reference Range is dependent on time and content of last meal. Glucose of more than 200 mg/dL in a nonstressed, ambulatory subject supports the diagnosis of Diabetes Mellitus. Performed By: #### P T #### [facility] [address] [place] [address] No Panel InformationOrdered By: Shaka Echavarria on 11-11-2021 Bedside Glucose Comment Glu2: cleaned meter [facility] Estimated GFR () 45 mL/Min [facility] Comment on above: GFR estimated refere nce range: According to KDOQI guidelines, <60 ml/min/1.73m2 is sufficient to diagnose a patient with chronic kidney disease. Pharmacy Creatinine Clearance (Chem 29.48 [facility] Serum or plasma calcium missy urement (mass/volume)Ordered By: Shaka Echavarria on 11-11-2021 Calcium [Mass/Vol] 8.9 mg/dL 8.2-10.2 [facility] Serum or plasma chloride ken surement (moles/volume)Ordered By: Shaka Echavarria on 11-11-2021 Chloride [Moles/Vol] 94 mmol/L 95-114 [facility] Serum or plasma glucose missy urement (mass/volume)Ordered By: Shaka Echavarria on 11-11-2021 Glucose [Mass/Vol] 297 mg/dL 70-100 [facility] Comment on above: Delta: 179 on -0432ADA recommended reference rangeRandom Glucose Reference Range is dependent on time and content of last meal. Glucose of more than 200 mg/dL in a nonstressed, ambulatory subject supports the diagnosis of Diabetes Mellitus. Serum or plasma potassium me asurement (moles/volume)Ordered By: Shaka Echavarria on 11-11-2021 Potassium [Moles/Vol] 3.7 mmol/L 3.5-5.1 [facility] Serum or plasma sodium measu rement (moles/volume)Ordered By: Shaka Echavarria on 11-11-2021 Sodium [Moles/Vol] 132 mmol/L 136-146 [facility] Serum or plasma total carbon dioxide measurement (moles/volume)Ordered By: Shaka Echavarria on 11-11-2021 CO2 [Moles/Vol] 22.6 mmol/L 22.0-30.0 [facility] Serum or plasma urea nitroge n measurement (mass/volume)Ordered By: Shaka Echavarria on 11-11-2021 Urea nitrogen [Mass/Vol] 19 mg/dL 9-23 [facility] Basic Metabolic Panelon 10-24 Calcium [Mass/Vol] 8.9 mg/dL Normal 8.2-10.2 [facility] Comment on above: Performed By: #### B MP, PT, CBC #### [facility] [address] Chloride [Moles/Vol] 96 mmol/L Normal 95-114 [facility] Comment on above: Performed By: #### B MP, PT, CBC #### [facility] [address] CO2 [Moles/Vol] 29.6 mmol/L Normal 22.0-30.0 [facility] Comment on above: Performed By: #### B MP, PT, CBC #### [address] Creatinine [Mass/Vol] 0.89 mg/dL Normal 0.44-1.03 [facility] Comment on above: Performed By: #### B MP, PT, CBC #### [address] Creatinine Clr Calc Pharmacy 45.71 [facility] Comment on above: Result Comment: PERF ORMED BY: [place] [address] PATHOLOGIST CONDITIONER TUMBLER OPERATOR ADRIAN ROBERTSON M.D. Performed By: #### B MP, PT, CBC #### [address] Estimated GFR ( Rafaela > 60 [facility] Comment on above: Result Comment: GFR estimated reference range: According to KDOQI guidelines, <60 ml/min/1.73m2 is sufficient to diagnose a patient with chronic kidney disease. Performed By: #### B MP, PT, CBC #### [address] Estimated GFR (Non- Am > 60 [facility] Comment on above: Performed By: #### B MP, PT, CBC #### [address] Glucose [Mass/Vol] 179 mg/dL High 70-100 [facility] Comment on above: Result Comment: Moran om Glucose Reference Range is dependent on time and content of last meal. Glucose of more than 200 mg/dL in a nonstressed, ambulatory subject supports the diagnosis of Diabetes Mellitus. ADA recommended reference range Performed By: #### B MP, PT, CBC #### [address] Potassium [Moles/Vol] 3.1 mmol/L Low 3.5-5.1 [facility] Comment on above: Performed By: #### B MP, PT, CBC #### [facility] [address] [place] [address] [place] Sodium [Moles/Vol] 137 mmol/L Normal 136-146 [facility] Comment on above: Performed By: #### B MP, PT, CBC #### [facility] [address] Urea nitrogen [Mass/Vol] 10 mg/dL Normal 9-23 [facility] Comment on above: Performed By: #### B MP, PT, CBC #### [facility] [address] [place] [address] [place] Basophils Auto (Bld) [#/Vol] Ordered By: Salma Cortes on 11-10-2021 Basophils (Bld) [#/Vol] 0.0 10*3/uL 0.0-0.2 [facility] Basophils/100 WBC Auto (Bld) Ordered By: Salma Cortes on 11-10-2021 Basophils/100 WBC (Bld) 0.2 % [facility] Blood hemoglobin measurement (mass/volume)Ordered By: Salma Cortes on 11-10-2021 Hemoglobin (Bld) [Mass/Vol] 13.2 g/dL 11.8-15.4 [facility] Blood leukocytes automated c ount (number/volume)Ordered By: Salma Cortes on 11-10-2021 WBC (Bld) [#/Vol] 10.7 10*3/uL 4.5-11.[address] [facility] [address] head/brain wo conon 11-10 CT head/brain wo con [facility] [address] [place] [address] CT Scan Report Signed Patient: Andrew Barros MR#: [id number] : 1945 Acct:[id number] Age/Sex: 76 / F ADM Date: 11/09/21 Loc: Room: [address] [place] [address] Type: ADM IN Attending Dr: Shaka Echavarria [...] Trina Watts M.D.11/10/2021 8:43 AM Dictation Location: [place] [address] Transcribed By: [facility] 11/10/21842 Dictated By: Trina Watts II, MD 11/10/2140 Signed By: 11/10/21842 [facility] Complete Blood Count Auto Di ffon 11-10-2021 Basophils (Bld) [#/Vol] 0.0 10*3/uL Normal 0.0-0.2 [facility] Comment on above: Result Comment: PERF ORMED BY: [place] [address] PATHOLOGIST CONDITIONER TUMBLER OPERATOR ADRIAN ROBERTSON M.D. Performed By: #### B MP, PT, CBC #### [facility] [address] [place] [address] [place] Basophils/100 WBC (Bld) 0.2 % Normal . [facility] Comment on above: Performed By: #### B MP, PT, CBC #### [facility] [address] [place] [address] [place] Eosinophils (Bld) [#/Vol] 0.0 10*3/uL Normal 0.0-0.45 [facility] Comment on above: Performed By: #### B MP, PT, CBC #### [facility] [address] [place] [address] [place] Eosinophils/100 WBC (Bld) 0.1 % Normal . [facility] Comment on above: Performed By: #### B MP, PT, CBC #### [facility] [address] [place] [address] [place] Erythrocyte distribution width (RBC) [Ratio] 13.8 % Normal 11.9-15.3 [facility] Comment on above: Performed By: #### B MP, PT, CBC #### [facility] [address] [place] [address] [place] Hematocrit (Bld) [Volume fraction] 39.1 % Normal 34.0-46.4 [facility] Comment on above: Performed By: #### B MP, PT, CBC #### [facility] [address] [place] [address] [place] Hemoglobin (Bld) [Mass/Vol] 13.2 g/dL Normal 11.8-15.4 [facility] Comment on above: Performed By: #### B MP, PT, CBC #### [facility] [address] [place] [address] [place] Lymphocytes (Bld) [#/Vol] 1.3 10*3/uL Normal 1.00-4.8 [facility] Comment on above: Performed By: #### B MP, PT, CBC #### [facility] [address] [place] [address] [place] Lymphocytes/100 WBC (Bld) 12.0 % Normal . [facility] Comment on above: Performed By: #### B MP, PT, CBC #### [facility] [address] MCH (RBC) [Entitic mass] 30.4 pg Normal 24.7-34.3 [facility] Comment on above: Performed By: #### B MP, PT, CBC #### [facility] [address] MCV (RBC) [Entitic vol] 90.0 fL Normal 80-100 [facility] Comment on above: Performed By: #### B MP, PT, CBC #### [facility] [address] Mean Corpuscular HGB Conc 33.8 g/dL Normal 32.0-35.0 [facility] Comment on above: Performed By: #### B MP, PT, CBC #### [facility] [address] [place] [address] [place] Monocytes (Bld) [#/Vol] 1.2 10*3/uL High 0.0-0.8 [facility] Comment on above: Performed By: #### B MP, PT, CBC #### [facility] [address] [place] [address] [place] Monocytes/100 WBC (Bld) 10.8 % Normal . [facility] Comment on above: Performed By: #### B MP, PT, CBC #### [facility] [address] [place] [address] [place] Neutrophils (Bld) [#/Vol] 8.2 10*3/uL High 1.8-7.7 [facility] Comment on above: Performed By: #### B MP, PT, CBC #### [facility] [address] [place] [address] [place] Neutrophils/100 WBC (Bld) 76.9 % Normal . [facility] Comment on above: Performed By: #### B MP, PT, CBC #### [facility] [address] Nucleated RBC/100 WBC (Bld) [Ratio] 0.1 % Normal 0-0.5 [facility] Comment on above: Performed By: #### B MP, PT, CBC #### [facility] [address] Platelet mean volume (Bld) [Entitic vol] 9.2 fL Normal 6.3-10.7 [facility] Comment on above: Performed By: #### B MP, PT, CBC #### [address] Platelets (Bld) [#/Vol] 261 10*3/uL Normal 150-450 [facility] Comment on above: Performed By: #### B MP, PT, CBC #### [address] RBC (Bld) [#/Vol] 4.35 10*6/uL Normal 3.60-5.00 [facility] Comment on above: Performed By: #### B MP, PT, CBC #### [address] WBC (Bld) [#/Vol] 10.7 10*3/uL Normal 4.5-11.0 [facility] Comment on above: Performed By: #### B MP, PT, CBC #### [address] Eosinophils Auto (Bld) [#/Vo l]Ordered By: Salma Cortes on 11-10-2021 Eosinophils (Bld) [#/Vol] 0.0 10*3/uL 0.0-0.45 [facility] Eosinophils/100 WBC Auto (Bl d)Ordered By: Salma Cortes on 11-10-2021 Eosinophils/100 WBC (Bld) 0.1 % [facility] Erythrocyte distribution wid th Auto (RBC) [Ratio]Ordered By: Salma Cortes on 11-10-2021 Erythrocyte distribution width (RBC) [Ratio] 13.8 % 11.9-15.3 [facility] Glucose Poct Glucometerson 0 11-10-2021 Glucose [Mass/Vol] 183 mg/dL Normal [facility] Comment on above: Result Comment: [facility] Glucose Reference Range is dependent on time and content of last meal. Glucose of more than 200 mg/dL in a nonstressed, ambulatory subject supports the diagnosis of Diabetes Mellitus. PERFORMED BY: [address] [place] [address] PATHOLOGIST CONDITIONER TUMBLER OPERATOR ADRIAN ROBERTSON M.D. Performed By: #### G LULS #### Point of Care testing , Glucose [Mass/Vol] 135 mg/dL Normal [facility] Comment on above: Result Comment: [facility] Glucose Reference Range is dependent on time and content of last meal. Glucose of more than 200 mg/dL in a nonstressed, ambulatory subject supports the diagnosis of Diabetes Mellitus. PERFORMED BY: [address] [place] [address] PATHOLOGIST CONDITIONER TUMBLER OPERATOR ADRIAN ROBERSTON M.D. Performed By: #### G LULS #### Point of Care testing , Glucose [Mass/Vol] 235 mg/dL Normal [facility] Comment on above: Result Comment: [facility] Glucose Reference Range is dependent on time and content of last meal. Glucose of more than 200 mg/dL in a nonstressed, ambulatory subject supports the diagnosis of Diabetes Mellitus. PERFORMED BY: [address] [address] PATHOLOGIST CONDITIONER TUMBLER OPERATOR ADRIAN ROBERTSON M.D. Performed By: #### G LULS #### Point of Care testing , Glucose [Mass/Vol] 110 mg/dL Normal [facility] Comment on above: Result Comment: [facility] Glucose Reference Range is dependent on time and content of last meal. Glucose of more than 200 mg/dL in a nonstressed, ambulatory subject supports the diagnosis of Diabetes Mellitus. PERFORMED BY: [address] [place] [address] PATHOLOGIST CONDITIONER TUMBLER OPERATOR ADRIAN ROBERTSON M.D. Performed By: #### G KIMBERLY #### Point of Care testing , Hematocrit Auto (Bld) [Volum e fraction]Ordered By: Salma Cortes on 11-10-2021 Hematocrit (Bld) [Volume fraction] 39.1 % 34.0-46.4 [facility] Laboratory - CoagulationOrde red By: Salma Cortes on 11-10-2021 PT Coag (PPP) [Time] 12.6 s 9.0-12.9 [facility] Laboratory - Hematology and Cell countsOrdered By: Salma Cortes on 11-10-2021 Nucleated RBC/100 WBC (Bld) [Ratio] 0.1 % 0-0.5 [facility] Lymphocytes Auto (Bld) [#/Vo l]Ordered By: Salma Cortes on 11-10-2021 Lymphocytes (Bld) [#/Vol] 1.3 10*3/uL 1.00-4.8 [facility] Lymphocytes/100 WBC Auto (Bl d)Ordered By: Salma Cortes on 11-10-2021 Lymphocytes/100 WBC (Bld) 12.0 % [facility] MCH Auto (RBC) [Entitic mass ]Ordered By: Salma Cortes on 11-10-2021 MCH (RBC) [Entitic mass] 30.4 pg 24.7-34.3 [facility] MCHC Auto (RBC) [Mass/Vol]Or dered By: Salma Cortes on 11-10-2021 MCHC (RBC) [Mass/Vol] 33.8 g/dL 32.0-35.0 [facility] MCV Auto (RBC) [Entitic vol] Ordered By: Salma Cortes on 11-10-2021 MCV (RBC) [Entitic vol] 90.0 fL 80-100 [facility] Monocytes Auto (Bld) [#/Vol] Ordered By: Salma Cortes on 11-10-2021 Monocytes (Bld) [#/Vol] 1.2 10*3/uL 0.0-0.8 [facility] Monocytes/100 WBC Auto (Bld) Ordered By: Salma Cortes on 11-10-2021 Monocytes/100 WBC (Bld) 10.8 % [facility] Neutrophils Auto (Bld) [#/Vo l]Ordered By: Salma Cortes on 11-10-2021 Neutrophils (Bld) [#/Vol] 8.2 10*3/uL 1.8-7.7 [facility] Neutrophils/100 WBC Auto (Bl d)Ordered By: Salma Cortes on 11-10-2021 Neutrophils/100 WBC (Bld) 76.9 % [facility] Platelet mean volume Auto (B ld) [Entitic vol]Ordered By: Salma Cortes on 11-10-2021 Platelet mean volume (Bld) [Entitic vol] 9.2 fL 6.3-10.7 [facility] Platelet poor plasma interna tional normalized ratio (INR) by coagulation assay (relatOrdered By: Salma Cortes on 11-10-2021 INR Coag (PPP) [Relative time] 1.1 {INR} [facility] Comment on above: INR Therapeutic Rang [...] 11-10-2021 Platelets (Bld) [#/Vol] 261 10*3/uL 150-450 [facility] Prothrombin Time INRon 11-10 INR Coag (PPP) [Relative time] 1.1 {INR} Normal [facility] Comment on above: Result Comment: INR [...] heart valves: 3 - 4.5 PERFORMED BY: [place] [address] PATHOLOGIST CONDITIONER TUMBLER OPERATOR ADRIAN ROBERTSON M.D. Performed By: #### B MP, PT, CBC #### [facility] [address] [place] [address] [facility] PT Coag (PPP) [Time] 12.6 s Normal 9.0-12.9 [facility] Comment on above: Performed By: #### B MP, PT, CBC #### [facility] [address] [place] [address] [facility] INR Coag (PPP) [Relative time] 1.2 {INR} Normal [facility] Comment on above: Order Comment: that [...] heart valves: 3 - 4.5 PERFORMED BY: [place] [address] PATHOLOGIST CONDITIONER TUMBLER OPERATOR ADRIAN ROBERTSON M.D. Performed By: #### P T #### [facility] [address] [place] [address] [facility] PT Coag (PPP) [Time] 12.9 s Normal 9.0-12.9 [facility] Comment on above: Order Comment: that no one else will be tiring until 3rd comes in. psw 2013 Performed By: #### P T #### [facility] [address] [place] [address] [place] RBC Auto (Bld) [#/Vol]Ordere d By: Salma Cortes on 11-10-2021 RBC (Bld) [#/Vol] 4.35 10*6/uL 3.60-5.00 [facility] BNPon 11-09-2021 Natriuretic peptide B (Bld) [Mass/Vol] 914.0 pg/mL Normal <=1,800.0 [facility] Comment on above: Performed By: #### C MADM, CMP, BNP ####[facility] [address] [place] [address]Dr. Swathi Reis CARDIAC TRINA ADMITon 022 CK [Catalytic activity/Vol] 50 U/L Normal 30-135 [facility] Comment on above: Performed By: #### C MADM, CMP, BNP ####[facility] [address] [place] [address]Dr. Swathi Reis CK.MB [Mass/Vol] 1.14 ng/mL Normal <=2.37 [facility] Comment on above: Performed By: #### C MADM, CMP, BNP ####[facility] [address] [place] [address]Dr. Swathi Reis HSTROP 12.8 pg/mL Normal 4.0-35.5 [facility] Comment on above: Result Comment: CUT- OFF POINTS HAVE BEEN ESTABLISHED BASED ON THE FOURTH UNIVERSAL DEFINITIONS OF MYOCARDIALINFARCTION. THE UPPER REFERENCE LIMIT (URL) OF TROPONIN, DEFINED THE 99TH PERCENTILE OFcTnI DISTRIBUTION IN A REFERENCE POPULATION, HAS BEEN CONFIRMED THE DECISION THRESHOLDFOR MO DIAGNOSIS. Performed By: #### C MADM, CMP, BNP ####[facility] [address] [place] [address]Dr. Swathi Reis GUANACO 53.0 ng/mL Normal <=61.5 [facility] Comment on above: Performed By: #### C MADM, CMP, BNP ####[facility] D[address]xkskvex[address] [place] [address]Dr. Swathi Chato CBC AUTO DIFFon 11-09-2021 BASO # 0.0 103/ul Normal 0.0-0.1 [facility] Comment on above: Performed By: #### C BC ####[facility] [address] [place] [address]Dr. Swathi Reis Basophils/100 WBC (Bld) 0.3 % Normal 0.2-2.0 [facility] Comment on above: Performed By: #### C BC ####[facility] [address] [place] [id number]. Swathi Reis EO # 0.0 103/ul Normal 0.0-0.7 [facility] Comment on above: Performed By: #### C BC ####[facility] Lwsapyyx[address] [place] [id number]. Swathi Reis Eosinophils/100 WBC (Bld) 0.2 % Critically low 0.9-7.0 [facility] Comment on above: Performed By: #### C BC ####[facility] [address] [place], [place] [address]Dr. Swathi Reis Erythrocyte distribution width (RBC) [Ratio] 13.1 % Normal 11.0-15.0 [facility] Comment on above: Performed By: #### C BC ####[facility] [address] [place], [place] [address]Dr. Swathi Reis Hematocrit (Bld) [Volume fraction] 40.8 % Normal 36.0-48.0 [facility] Comment on above: Performed By: #### C BC ####[facility] Icw[address]xen[address] [place], [place] [address]Dr. Swathi Reis Hemoglobin (Bld) [Mass/Vol] 13.3 g/dL Normal 12.0-16.0 [facility] Comment on above: Performed By: #### C BC ####[facility] Lzacs[address] [place], [place] [address]Dr. Swathi Reis IG # 0.05 10e3/ul Critically high 0.00-0.03 [facility] Comment on above: Performed By: #### C BC ####[facility] [address] [place], [place] [address]Dr. Swathi Reis IG % 0.4 % Normal 0.0-0.5 [facility] Comment on above: Performed By: #### C BC ####[facility] Gqesh[address] [place], [place] [address]Dr. Swathi Reis LYMPH # 1.0 103/ul Critically low 1.2-3.8 [facility] Comment on above: Performed By: #### C BC ####[facility] [address] [place] [id number]. Swathi Chato Lymphocytes/100 WBC (Bld) 8.3 % Critically low 20.5-60.0 [facility] Comment on above: Performed By: #### C BC ####[facility] Okpdwmmgmh[address] [place] [address]Dr. Swathi Reis MANUAL DIFF REQ NO Normal [facility] Comment on above: Performed By: #### C BC ####[facility] E[address]bh[address] [place] [id number]. Inessatracy Reis MCH (RBC) [Entitic mass] 29.8 pg Normal 26.7-34.0 [facility] Comment on above: Performed By: #### C BC ####[facility] [address] [place], [place] [address]Dr. Swathi Reis MCHC (RBC) [Mass/Vol] 32.6 g/dL Normal 29.9-35.2 [facility] Comment on above: Performed By: #### C BC ####[facility] Raf[address]fbg[address] [place] [id number]. Swathi Reis MCV (RBC) [Entitic vol] 91.5 fL Normal 81.0-99.0 [facility] Comment on above: Performed By: #### C BC ####[facility] [address] [place], [place] [address]Dr. Swathi Reis MONO # 0.6 103/ul Normal 0.3-0.8 [facility] Comment on above: Performed By: #### C BC ####[facility] [address]mb[address] [place], [place] [address]Dr. Swathi Reis Monocytes/100 WBC (Bld) 4.9 % Normal 1.7-12.0 [facility] Comment on above: Performed By: #### C BC ####[facility] [address] [place], [place] [address]Dr. Swathi Reis NEUT # 10.5 103/ul Critically high 1.4-6.5 [facility] Comment on above: Performed By: #### C BC ####[facility] [address] [place], [place] [address]Vz. Swathi Reis Neutrophils/100 WBC (Bld) 85.9 % Critically high 43.0-75.0 [facility] Comment on above: Performed By: #### C BC ####[facility] X[address] [place], [place] [address]Uy. Swathi Reis Platelet mean volume (Bld) [Entitic vol] 10.9 fL Normal 9.5-13.5 [facility] Comment on above: Performed By: #### C BC ####[facility] [address] [place] [id number]. Swathi Reis PLT 290 103/ul Normal 150-450 [facility] Comment on above: Performed By: #### C BC ####[facility] Qpvaqlupvp54[address] [place] [id number]. Swathi Reis RBC 4.46 106/ul Normal 4.20-5.40 [facility] Comment on above: Performed By: #### C BC ####[facility] [address] [place], [place] [address]Ts. Swathi Reis WBC 12.3 103/ul Critically high 4.0-11.0 [facility] Comment on above: Performed By: #### C BC ####[facility] F[address] [place], [place] [address]Do. [address] Re[address] CT HEAD WO CONon 11-09-2021 CT HEAD WO CON Normal [facility] Covid-19 PCR ([facility])on [facility]-24 SARS-CoV-2 (COVID-19) RNA ÓSCAR+probe Ql (Unsp spec) Not detected Normal NOT DETECTED [facility] Comment on above: Result Comment: When [...] for this test is supported by the Summer Child Caregiver of Health and Human Service's declaration that [...] longer be used). Performed By: #### C [facility] ####[facility] [address] [place], [place] [address]Dr. Swathi Reis ER URINE PROFILEon 2 Bilirubin Ql (U) Negative Normal NEGATIVE [facility] Comment on above: Performed By: #### REYNOLD SOSA ####[facility] Ikbwe[address]ycd[address] [place], [place] [address]Dr. Swathi Reis Clarity (U) CLEAR Normal CLEAR [facility] Comment on above: Performed By: #### REYNOLD SOSA ####[facility] O[address]hrf[address] [place], [place] [address]Dr. Swathi Reis Color (U) LT. YELLOW Normal YELLOW [facility] Comment on above: Performed By: #### REYNOLD SOSA ####[facility] Nbfvk[address]ikd[address] [place], [place] [address]Dr. Swathi Reis ERUAHD A micrscopic examina tion will be performed if indicated. Normal [facility] Comment on above: Performed By: #### REYNOLD SOSA ####[facility] Owftqkqsah[address] [place], [place] [address]Dr. Swathi Reis Glucose Ql (U) Negative Normal NEGATIVE [facility] Comment on above: Performed By: #### ROMEO SOSARO ####[facility] V[address]fx[address] [place], [place] [address]Dr. Swathi Reis Hemoglobin Ql (U) TRACE-INTACT Abnormal NEGATIVE [facility] Comment on above: Performed By: #### REYNOLD SOSA ####[facility] [address] [place] [address]Dr. Swathi Reis Ketones Ql (U) Negative Normal NEGATIVE [facility] Comment on above: Performed By: #### REYNOLD SOSA ####[facility] Uozmlbbsfv25[address] [place] [address]Dr. Swathi Reis LEUKOCYTES Negative Normal NEGATIVE [facility] Comment on above: Performed By: #### REYNOLD SOSA ####[facility] [address]cs[address] [place], [place] [address]Dr. Swathi Reis Nitrite Ql (U) Negative Normal NEGATIVE [facility] Comment on above: Performed By: #### REYNOLD SOSA ####[facility] Xlnmedniyn[address] [place], [place] [address]Dr. Swathi Reis pH (U) 6.0 [pH] Normal 5-9 [facility] Comment on above: Performed By: #### REYNOLD SOSA ####[facility] Cdpz[address]cyas[address] [place], [place] [address]Dr. Swathi Reis SPEC GRAVITY 1.010 Normal 1.005-<=1.0 25 [facility] Comment on above: Performed By: #### REYNOLD SOSA ####[facility] [address]fr[address] [place], [place] [address]Dr. Swathi Reis UA PROTEIN TRACE Normal NEGATIVE/ TRACE [facility] Comment on above: Performed By: #### REYNOLD SOSA ####[facility] I[address]nqigiu[address] [place], [place] [address]Dr. Swathi Reis UR MICRO IND INDICATED Normal [facility] Comment on above: Performed By: #### REYNOLD SOSA ####[facility] Zsmfrb[address] [place], [place] [address]Dr. Swathi Reis Urobilinogen Qn (U) 0.2 {Sánchez'U}/dL Normal 0.2 - 1. 0 [facility] Comment on above: Performed By: #### REYNOLD SOSA ####[facility] [address]qfce[address] [place], [place] [address]Dr. Swahti Reis Glucose Poct Glucometerson 0 11-09-2021 Glucose [Mass/Vol] 178 mg/dL Normal [facility] Comment on above: Result Comment: [facility] Glucose Reference Range is dependent on time and content of last meal. Glucose of more than 200 mg/dL in a nonstressed, ambulatory subject supports the diagnosis of Diabetes Mellitus. PERFORMED BY: [facility] [address] [place] [address] PATHOLOGIST CONDITIONER TUMBLER OPERATOR ADRIAN ROBERTSON M.D. Performed By: #### G LULS #### Point of Care testing , PROF 14(COMP METB)on 022 Albumin [Mass/Vol] 3.5 g/dL Normal 3.5-5.0 [facility] Comment on above: Performed By: #### C ROSALINO, CMP, BNP ####[facility] [address] [place] [address]Dr. Swathi Reis Albumin/Globulin [Mass ratio] 1.0 {ratio} Normal [facility] Comment on above: Performed By: #### C MADM, CMP, BNP ####[facility] [address]mlbnwdf7164 [place] [address]Dr. Swathi Reis ALP [Catalytic activity/Vol] 93 U/L Normal 38-126 [facility] Comment on above: Performed By: #### C MADM, CMP, BNP ####[facility] Ikmpis[address]wyf[address] [place] [id number]. Swathi Reis ALT [Catalytic activity/Vol] 22 U/L Normal 9-52 [facility] Comment on above: Performed By: #### C MADM, CMP, BNP ####[facility] Swrxdrfauy16[address] [place] [address]Dr. Swathi Reis Anion gap [Moles/Vol] 15.4 mmol/L Normal [facility] Comment on above: Performed By: #### C MADM, CMP, BNP ####[facility] Su[address] [place] [address]Dr. Swathi Reis AST [Catalytic activity/Vol] 21 U/L Normal 14-36 [facility] Comment on above: Performed By: #### C MADM, CMP, BNP ####[facility] [address]zvmero[address] [place] [address]Dr. Swathi Reis Bilirubin [Mass/Vol] 0.7 mg/dL Normal 0.2-1.3 [facility] Comment on above: Performed By: #### C MADM, CMP, BNP ####[facility] [address] [place] [address]Dr. Swathi Reis Calcium [Mass/Vol] 9.5 mg/dL Normal 8.4-10.2 [facility] Comment on above: Performed By: #### C MADM, CMP, BNP ####[facility] J[address]vmdrkvwa7352 [place] [address]Dr. Swathi Reis Chloride [Moles/Vol] 99 mmol/L Normal 98-107 [facility] Comment on above: Performed By: #### C MADM, CMP, BNP ####[facility] [address]mfilmspna[address] [place], [place] [address]Dr. Swathi Reis CO2 [Moles/Vol] 31.0 mmol/L Critically high 22.0-30.0 [facility] Comment on above: Performed By: #### C MADM, CMP, BNP ####[facility] Izcdcmscdw[address] [place], [place] [address]Dr. Swathi Reis Creatinine [Mass/Vol] 1.10 mg/dL Critically high 0.52-1.04 [facility] Comment on above: Performed By: #### C MADM, CMP, BNP ####[facility] [address]xaxffmix[address] [place], [place] [address]Dr. Swathi Reis EGFR-AF RWANDAN 58 mL/min/1.73m2 Critically low >=60 [facility] Comment on above: Performed By: #### C MADM, CMP, BNP ####[facility] [address]rmdxxqtih[address] [place], [place] [address]Dr. Swathi Reis EGFR-NON AF RWANDAN 48 mL/min/1.73m2 Critically low >=60 [facility] Comment on above: Performed By: #### C MADM, CMP, BNP ####[facility] Sbfpanraud[address] [place] [address]Dr. Swathi Reis Globulin (S) [Mass/Vol] 3.5 g/dL Normal [facility] Comment on above: Performed By: #### C MADM, CMP, BNP ####[facility] Zxrtacervx[address] [place] [address]Dr. Swathi Reis Glucose [Mass/Vol] 203 mg/dL Critically high 74-106 [facility] Comment on above: Performed By: #### C MADM, CMP, BNP ####[facility] Xmctjmpqke[address] [place] [address]Dr. Swathi Reis Potassium [Moles/Vol] 4.4 mmol/L Normal 3.4-5.0 [facility] Comment on above: Performed By: #### C MADM, CMP, BNP ####[facility] Stqyjmpyuy[address] [place] [address]Dr. Swathi Reis Protein [Mass/Vol] 7.0 g/dL Normal 6.1-8.2 [facility] Comment on above: Performed By: #### C MADM, CMP, BNP ####[facility] Aseizvnnbv[address] [place] [address]Dr. Swathi Reis Sodium [Moles/Vol] 141 mmol/L Normal 137-145 [facility] Comment on above: Performed By: #### C MADM, CMP, BNP ####[facility] Dmhmklzhua[address] [place] [address]Dr. Swathi Reis Urea nitrogen [Mass/Vol] 21.0 mg/dL Critically high 7.0-17.0 [facility] Comment on above: Performed By: #### C MADM, CMP, BNP ####[facility] Es[address]hkmjeo[address] [place] [address]Dr. Swathi Reis Urea nitrogen/Creatinine [Mass ratio] 19.1 mg/mg Normal [facility] Comment on above: Performed By: #### C MADM, CMP, BNP ####[facility] Qwafklnron8617 [place] [address]Dr. Swathi Reis PROTIMEon 11-09-2021 INR Coag (PPP) [Relative time] 1.09 {INR} Normal [facility] Comment on above: Performed By: #### P T, PTT ####[facility] [address] [place], [place] [address]Dr. Swathi Reis INR GUIDELINES SEE BELOW Normal [facility] Comment on above: Result Comment: HARRIETT RED INR: 2.0 - 3.0 CONDITIONS NOT LISTED BELOW 2.5 - 3.5 FOR PROSTHETIC HEART VALVE REPLACEMENT 2.5 - 3.5 RECURRENT THROMBOSIS Performed By: #### P T, PTT ####[facility] N[address]stfgalf[address] [place], [place] [address]Dr. Swathi Reis PT Coag (PPP) [Time] 11.7 s Critically high 9.0-11.6 [facility] Comment on above: Performed By: #### P T, PTT ####[facility] [address] [place], [place] [address]Dr. Swathi Reis INR Coag (PPP) [Relative time] 3.45 {INR} Normal [facility] Comment on above: Performed By: #### P TT, PT ####[facility] Jrxluxvdpc[address] [place], [place] [address]Dr. Swathi Reis INR GUIDELINES SEE BELOW Normal [facility] Comment on above: Result Comment: HARRIETT RED INR: 2.0 - 3.0 CONDITIONS NOT LISTED BELOW 2.5 - 3.5 FOR PROSTHETIC HEART VALVE REPLACEMENT 2.5 - 3.5 RECURRENT THROMBOSIS Performed By: #### P TT, PT ####[facility] Uiadwooiav[address] [place], [place] [address]Dr. Swathi Reis PT Coag (PPP) [Time] 34.4 s Critically high 9.0-11.6 [facility] Comment on above: Performed By: #### P TT, PT ####[facility] Ryvv[address]obwo[address] [place], [place] [address]Dr. Swathi Reis PTTon 11-09-2021 aPTT Coag (Bld) [Time] 25.9 s Normal 22.3-36.2 [facility] Comment on above: Performed By: #### P T, PTT ####[facility] Htcxeslqfk[address] [place] [address]Dr. Inessatracy Reis aPTT Coag (Bld) [Time] 39.1 s Critically high 22.3-36.2 [facility] Comment on above: Performed By: #### P TT, PT ####[facility] Cltjsguigw[address] [place], [place] [address]Dr. Swathi Reis TYPE AND SCREENon 11-09-2021 TYPE AND SCREEN Negative Normal [facility] Comment on above: Performed By: #### T NS ####[facility] [address]fiyfbi[address] [place], [place] [address]Dr. Swathi Reis URINE MICROSCOPIC ONLYon BACTERIA NONE SEEN Normal NONE SEEN [facility] Comment on above: Performed By: #### ROMEO SOSARO ####[facility] [address] [place], [place] [address]Dr. Swathi Reis Bacteria identified Cx Nom (U) NOT INDICATED Normal [facility] Comment on above: Performed By: #### ROMEO SOSARO ####[facility] [address] [place], [place] [address]Dr. Swathi Reis CAST NONE SEEN Normal NONE SEEN [facility] Comment on above: Performed By: #### ROMEO SOSARO ####[facility] [address] [place], [place] [address]Dr. Swathi Reis Crystals LM Nom (Urine sed) NONE SEEN Normal NONE SEEN [facility] Comment on above: Performed By: #### ROMEO SOSARO ####[facility] Lum[address] [place], [place] [address]Dr. Swathi Reis Epithelial cells LM Ql (Urine sed) FEW Abnormal NONE SEEN /RARE [facility] Comment on above: Performed By: #### ROMEO SOSARO ####[facility] N[address] [place], [place] [address]Dr. Inessalan Chato MUCOUS NONE SEEN Normal NONE SEEN [facility] Comment on above: Performed By: #### ROMEO SOSARO ####[facility] [address] [place], [place] [address]Dr. Swathi Reis RBC 2-5 Abnormal 0-2 [facility] Comment on above: Performed By: #### REYNOLD SOSA ####[facility] [address] [place], [place] [address]Kr. Swathi Reis WBC NONE SEEN Normal NONE SEEN [facility] Comment on above: Performed By: #### REYNOLD SOSA ####[facility] [address] [place], [place] [address]Nc. Swathi Reis XR CHEST 1 Von 11-09-2021 XR CHEST 1 V Normal [facility] Coding Summary.on 09-14-2020 Coding Summary. CODING DATE: 020 FINAL [facility] STATUS: Short-Term Hosp as IP PAYOR: [...] Revised Date Saved: 09/14/2020 08:26 am Normal [facility] EMS Documentationon 09-12-20 20 EMS Documentation [id number] Normal [facility] ED Clinical Summaryon 2019 ED Clinical Summary (Inserted Image. Ave ble to display) [address] [address] ED Clinical Summary Person Information Name: ANDREW BARROS/New_Braydon Age: 74 Years : 1945 Sex: Female Language: Portuguese PCP: Eduardo Sharpe MD Marital Status: Phone: [phone] Visit Id: Visit Reason: Shortness of breath; [...] 09/09/2020 23:10:35 09/09/2020 23:10:35 09/09/2020 23:10:35 ADDRESS: [address] [place] [address] PHYS DOC NOTES: Addendum by Koko Pettit DO on September 09, 2020 18:55:26 EST MEDICAL INFORMATION: Prescriptions Given: Medications to Continue with No Changes Other Medications insulin aspart (NovoLog) 8 Units Subcutaneous every day. nitroglycerin nitroglycerin (nitroglycerin 0.4 mg sublingual Tab) 1 Tablets Sublingual every 5 minutes as needed for chest pain. PATIENT EDUCATION INFORMATION: Instructions: Follow up: DIAGNOSIS: COVID-19; Hypoxemia; Pneumonia Normal [facility] ED Patient Education Noteon 09-10-2020 ED Patient Education Note Normal [facility] ED Patient Summaryon 020 ED Patient Summary (Inserted Image. Ave ble to display) [address] [address] Patient Discharge Instructions Person Information Name: ANDREW BARROS Age: 74 Years Arrival Date: 09/09/2020 12:32:39 Discharge Diagnosis: COVID-19; Hypoxemia; Pneumonia Primary Care Physician: Eduardo Sharpe MD Provider Information Primary Provider: Koko Pettit DO [employer]:None The exam and treatment you received in the Emergency Department were for an urgent problem and are not intended as complete care. It is important that you follow up with a doctor, nurse practitioner, or physician?s curriculum assistant principal for ongoing care. If your symptoms become [...] opioids can be used to help relieve czovjpsp-ed-rxzwim pain and are often prescribed following a [...] be struggling with addiction, tell your health day care aide and ask for guidance or call [facility] National Helpline at 5-368-463-VJGQ. p Source: [place] Department of Health and Human Services/Center for Disease Control & Prevention Citizen Of [facility] Medications Given: Medication Dose Route levo (more content not included)... Normal [facility] Progress Note-Nurseinna 2019 Progress Note-Nurse [facility] ems at bedside receiving report and preparing patient for transport to [facility]. pt taken off high flow NC and placed on non rebreather at 15L/min o2 for traansport. Normal [facility] Troponin 9 Hr.on 09-10-2020 Troponin I.cardiac [Mass/Vol] 57.60 pg/mL Abnormal 10.10-27.10 [facility] Comment on above: Result Comment: Crit ical [...] Umair, April 2018) Performed By: #### 1 [id number] ####[facility] [address] [place] [address] .Manual Abson 09-09-2020 Basophils/Leukocytes Manual cnt (Bld) [Pure # fraction] 0.0 E9/L Normal 0.0-0.2 [facility] Comment on above: Performed By: #### 1 1556420, 6297256, 5108487, 2214893, 65766090, 32790601, 4636049, 21370250, 32678096 #### [facility] Laboratory [address] [place] [address] Eosinophils/Leukocyt es Manual cnt (Bld) [Pure # fraction] 0.0 E9/L Normal 0.0-0.5 [facility] Comment on above: Performed By: #### 1 6295634, 0523729, 8597002, 1464974, 76252600, 18719197, 7109542, 86082811, 44526381 #### [facility] Laboratory [address] [place] [address] Lymphocytes/Leukocyt es Manual cnt (Bld) [Pure # fraction] 0.4 E9/L Low 1.0-4.0 [facility] Comment on above: Performed By: #### 1 2014095, 3684341, 1397372, 6283386, 30138084, 95774158, 3683546, 29264235, 16428692 #### [facility] [address] [place] [address] Monocytes/Leukocytes Manual cnt (Bld) [Pure # fraction] 1.5 E9/L High 0.2-1.0 [facility] Comment on above: Performed By: #### 1 4725586, 7387328, 8127856, 0096675, 63536011, 00918328, 6788238, 64998642, 90567577 #### [facility] [address] [place] [address] Neutrophils/Leukocyt es Auto (Bld) [Pure # fraction] 18.9 E9/L High 2.0-7.5 [facility] Comment on above: Performed By: #### 1 4531452, 9040768, 2724032, 0029269, 34556699, 24024501, 7685358, 74266310, 99346325 #### [facility] [address] [place] [address] BMPon 09-09-2020 Creatinine [Mass/Vol] 1.1 mg/dL Normal 0.5-1.3 [facility] Comment on above: Performed By: #### 1 1600860, 4952526, 3143383, 5187086, 00422578, 91937739, 4624059, 07211079, 92333341 #### [facility] [address] [place] [address] Urea nitrogen [Mass/Vol] 26 mg/dL High 5-21 [facility] Comment on above: Performed By: #### 1 4068559, 2569181, 2581459, 3343497, 31051602, 83087096, 3013430, 88466623, 72241269 #### [facility] [address] [place] [address] Urea nitrogen/Creatinine [Mass ratio] 24 No Units High 10-20 [facility] Comment on above: Performed By: #### 1 7159541, 3858565, 7059714, 7624041, 11477459, 06962067, 5917111, 13577358, 44861901 #### [facility] [address] [place] [address] Anion gap [Moles/Vol] 14 mmol/L Normal 6-16 [facility] Comment on above: Performed By: #### 1 4825190, 2604901, 0919365, 1744616, 41534021, 44318590, 7884972, 54981763, 69462865 #### [facility] [address] [place] [address] Calcium [Mass/Vol] 8.7 mg/dL Low 8.9-11.1 [facility] Comment on above: Performed By: #### 1 5525246, 5581246, 4584515, 7785482, 98713410, 17101670, 2301811, 63791664, 87329064 #### [facility] [address] [place] [address] Chloride [Moles/Vol] 104 mmol/L Normal 101-111 [facility] Comment on above: Performed By: #### 1 0986692, 9730820, 3169705, 2294610, 93519842, 81744550, 2550481, 67135937, 05597219 #### [facility] [address] [place] [address] CO2 [Moles/Vol] 23 mmol/L Normal 21-31 [facility] Comment on above: Performed By: #### 1 4290509, 9058604, 9996590, 5033797, 31298893, 79071028, 9705574, 05663977, 16771162 #### [facility] [address] [place] [address] Glucose [Mass/Vol] 256 mg/dL High 55-199 [facility] Comment on above: Result Comment: If t his glucose result represents a fasting glucose, interpretation should refer to the following reference range: 55-99 mg/dL Performed By: #### 1 8479198, 9218393, 9846624, 2532615, 20221556, 93369150, 5358967, 08420410, 03540316 #### [facility] [address] [place] [address] Potassium [Moles/Vol] 4.9 mmol/L Normal 3.5-5.3 [facility] Comment on above: Performed By: #### 1 9593090, 6399294, 3797098, 0423580, 78029112, 88295723, 9267354, 29754449, 53350657 #### [facility] [address] [place] [address] Sodium [Moles/Vol] 136 mmol/L Normal 135-145 [facility] Comment on above: Performed By: #### 1 4777030, 6384823, 1295750, 4769201, 12489637, 75826462, 9450754, 73371741, 41022195 #### [facility] Laboratory [address] [place] [address] BNPon 09-09-2020 Int Ctr BNP Pass Normal [facility] Comment on above: Performed By: #### 1 7838822, 9135730, 1780533, 3086743, 13508492, 66980520, 4844621, 80626151, 65438593 ####[facility] [address] [place] [address] Natriuretic peptide B (Bld) [Mass/Vol] 477 pg/mL High 5-80 [facility] Comment on above: Performed By: #### 1 2699420, 7122494, 1685975, 5043815, 38925677, 36543931, 0053513, 41614917, 05871071 ####[facility] [address] [place] [address] Bld Gas Arton 09-09-2020 a/A Ratio Art 37.50 Normal >=0.80 [facility] Comment on above: Performed By: #### 1 4187757 ####[facility] [address] [place] [address] AaDO2 Art 144.6 High 5.0-15.0 [facility] Comment on above: Performed By: #### 1 5729001 ####[facility] [address] [place] [address] Allens Test Positive Invalid Interpretation Code [facility] Comment on above: Result Comment: [facility] Department of Pulmonary Medicine [address] [place] [address] Performed By: #### 1 3418562 ####[facility] [address] [place] [address] Base excess Calc (Bld) [Moles/Vol] -1.8000 mmol/L Low >=2.8 [facility] Comment on above: Performed By: #### 1 7413063 ####[facility] [address] [place] [address] Called By: MISHA Invalid Interpretation Code [facility] Comment on above: Performed By: #### 1 6131728 ####[facility] [address] [place] [address] Called To: COLTON Invalid Interpretation Code [facility] Comment on above: Performed By: #### 1 7057178 ####[facility] [address] [place] [address] cCa2+ Art 4.93 mg/dL Normal 4.40-5.30 [facility] Comment on above: Performed By: #### 1 3414745 ####[facility] [address] [place] [address] cCl- Art 106.0 mmol/L Normal 101.0-111.0 [facility] Comment on above: Performed By: #### 1 9770331 ####[facility] [address] [place] [address] cGlu Art 262.0 mg/dL High 55.0-199.0 [facility] Comment on above: Result Comment: 83 Performed By: #### 1 6839372 ####[facility] [address] [place] [address] cK+ Art 4.9 mmol/L Normal 3.5-5.3 [facility] Comment on above: Performed By: #### 1 7083755 ####[facility] [address] [place] [address] cLac Art 1 mmol/L Low 5-14 [facility] Comment on above: Performed By: #### 1 0594333 ####[facility] [address] [place] [address] oven operator automatic+ Art 140.0 mmol/L Normal 135.0-145.0 [facility] Comment on above: Performed By: #### 1 9734535 ####[address] [place] [address] CO2 (Bld) [Partial pressure] 45.5 mm[Hg] High 35.0-45.0 [facility] Comment on above: Result Comment: 83 Performed By: #### 1 6370182 ####[address] [place] [address] Device NASAL Invalid Interpretation Code [facility] Comment on above: Performed By: #### 1 6745664 ####[address] [address] Drawn by TSB Invalid Interpretation Code [facility] Comment on above: Performed By: #### 1 0766164 ####[address] [place] [address] Dt/Tm Notified 12:54:00 Invalid Interpretation Code [facility] Comment on above: Performed By: #### 1 8143822 ####[address] [place] [address] FCOHb Art 1.1 % Low 1.5-4.9 [facility] Comment on above: Result Comment: 84 Reference range Nonsmoker <1.5% Smoker <5.0% Heavy Smoker <9.0% Performed By: #### 1 4926937 ####[address] [place] [address] FIO2 BG 40.0 Invalid Interpretation Code [facility] Comment on above: Performed By: #### 1 6639588 ####[address] [place] [address] Flow 5.00 Invalid Interpretation Code [facility] Comment on above: Performed By: #### 1 7004844 ####[address] [place] [address] FMetHb Art 0.6 % Normal 0.0-1.9 [facility] Comment on above: Performed By: #### 1 6272811 ####[address] [place] [address] FO2Hb Art 94.9 % Normal 92.0-100.0 [facility] Comment on above: Performed By: #### 1 5612324 ####[address] [address] HCO3 (Bld) [Moles/Vol] 22.9 mmol/L Normal 22.0-26.0 [facility] Comment on above: Performed By: #### 1 0496669 ####[address] [address] Hemoglobin (Bld) [Mass/Vol] 9.9 g/dL Low 12.0-16.0 [facility] Comment on above: Result Comment: 84 Performed By: #### 1 5700138 ####[place] 5894657 Oxygen saturation in Blood 96.6 % Normal 95.0-100.0 [facility] Comment on above: Performed By: #### 1 3941059 ####[place] 5894657 P O2 Arterial 86.6 mmHg Normal 80.0-100.0 [facility] Comment on above: Performed By: #### 1 7419267 ####[address] [address] pH (Bld) 7.333 [pH] Low 7.350-7.450 [facility] Comment on above: Result Comment: 84 Performed By: #### 1 1494948 ####[address] [address] Sample Site RR Invalid Interpretation Code [facility] Comment on above: Performed By: #### 1 2303918 ####[address] [address] Sample Type Arterial Invalid Interpretation Code [facility] Comment on above: Performed By: #### 1 1846289 ####[address] [address] CBC w/ Auto Diffon 202 0 Erythrocyte distribution width (RBC) [Ratio] 15.1 % High 10.9-14.2 [facility] Comment on above: Performed By: #### 1 1614687, 6185324, 0498602, 4472933, 47509692, 72796770, 0536716, 33119048, 66988304 #### [facility] Laboratory [address] [place] [address] Hematocrit (Bld) [Volume fraction] 30.7 % Low 34.0-46.0 [facility] Comment on above: Performed By: #### 1 9609376, 1107272, 2316816, 2943346, 56911825, 39995620, 8441167, 57437247, 14034572 #### [facility] Laboratory [address] [place], [place] [address] Hemoglobin (Bld) [Mass/Vol] 9.9 g/dL Low 12.0-16.0 [facility] Comment on above: Performed By: #### 1 2760479, 0550701, 2890867, 6864252, 24514421, 36739047, 9648899, 43395070, 48239657 #### [facility] [address] [place] [address] MCH (RBC) [Entitic mass] 29.7 pg Normal 27.0-34.0 [facility] Comment on above: Performed By: #### 1 8770540, 8315035, 6710851, 5400550, 44060837, 19484381, 6498485, 90507037, 44033807 #### [facility] [address] [place] [address] MCHC (RBC) [Mass/Vol] 32.2 g/dL Normal 31.4-36.0 [facility] Comment on above: Performed By: #### 1 9870835, 7199206, 5799292, 3003213, 25886448, 42231057, 6367471, 66113795, 23932939 #### [facility] [address] [place] [address] MCV (RBC) [Entitic vol] 92.3 fL Normal 80.0-100.0 [facility] Comment on above: Performed By: #### 1 3722460, 1962652, 2219816, 6002597, 57052097, 53991092, 4975728, 37294809, 30606888 #### [facility] [address] [place] [address] Platelet mean volume (Bld) [Entitic vol] 8.4 fL Normal 6.4-10.8 [facility] Comment on above: Performed By: #### 1 1380692, 2481061, 5539347, 3434561, 44152182, 62211979, 7959476, 77864779, 40247915 #### [facility] [address] [place] [address] Platelets (Bld) [#/Vol] 243.0 E9/L Normal 150.0-500.0 [facility] Comment on above: Performed By: #### 1 0847478, 2797548, 7773862, 3325909, 81816760, 07187687, 2065528, 05767768, 56274720 #### [facility] [address] [place] [address] RBC (Bld) [#/Vol] 3.3 E12/L Low 4.3-5.9 [facility] Comment on above: Performed By: #### 1 9389133, 3529125, 5820982, 0191007, 48478469, 57315541, 4505896, 85738937, 34641143 #### [facility] [address] [place] [address] WBC corrected for nucl RBC Auto (Bld) [#/Vol] 21.7 E9/L High 4.0-11.0 [facility] Comment on above: Performed By: #### 1 8515064, 6197127, 9086785, 7829830, 84710450, 94260938, 3203751, 12794853, 16165333 #### [facility] [address] [place] [address] CTA Cheston 12-18-2020 CTA Chest Exam Date/Time: [...] 370 Contrast amount in ml's: 66 Normal [facility] Consent for Treatmenton 08-23 Consent for Treatment [id number]:127 Normal [facility] D-Dimeron 09-09-2020 Fibrin D-dimer FEU (PPP) [Mass/Vol] 1480 ng/mL Abnormal 215-500 [facility] Comment on above: Result Comment: Resu lts [...] infections Liver cirrhosis Performed By: #### 1 9587355, 8662577, 4109819, 5385397, 39786180, 08134620, 0278109, 42589954, 05095208 ####[facility] [address] [place] [address] ED Note-Physicianon 09-09-20 ED Note-Physician Basic Information Time Seen: Koko Pettit DO 09/09/2020 12:35 Chief Complaint Sent from [facility] for increased SOB and low oxygen level. Covid positive about 2 weeks ago per EMS History of Present Illness 74 female presents to the emergency department with shortness of breath. Patient presents by EMS from the [facility] with Covid positive testing about 2 weeks [...] does not normally wear oxygen at the [facility]. No other aggravating or relieving factors no other associated symptoms no other prior treatments or complaints. Family: Reviewed and noncontributory Social: lives at [facility] Review of systems negative unless otherwise specified [...] (09/09/20 13 (more content not included)... Normal [facility] Comment on above: Result Comment: Elec tronically Signed By: Koko Pettit DO\.br\Date and Time Signed: 09/09/20 18:56 EST Lactic Acidon 09-09-2020 Lactate [Mass/Vol] 1.0 mmol/L Normal 0.5-2.2 [facility] Comment on above: Performed By: #### 2 913007 ####[facility] [address] [place] [address] Manual Diffon 09-09-2020 Band form neutrophils/100 WBC (Bld) 6 % Normal 0-10 [facility] Comment on above: Order Comment: Order Added by Discern Expert. Performed By: #### 1 5850317, 7810448, 6348899, 8977538, 40924587, 41249705, 0180526, 34297139, 36061448 #### [facility] [address] [place] [address] Basophils/100 WBC (Bld) 0 % Normal 0-2 [facility] Comment on above: Order Comment: Order Added by Discern Expert. Performed By: #### 1 3540456, 6956119, 3089066, 7173263, 76404500, 34089715, 9479901, 58993132, 22755575 #### [facility] [address] [place] [address] Eosinophils/100 WBC (Bld) 0 % Normal 0-8 [facility] Comment on above: Order Comment: Order Added by Discern Expert. Performed By: #### 1 1207146, 9590066, 6079968, 0335001, 79725566, 51921351, 6536765, 33029656, 63519125 #### [facility] [address] [place] [address] Lymphocytes/100 WBC (Bld) 2 % Low 14-50 [facility] Comment on above: Order Comment: Order Added by Discern Expert. Performed By: #### 1 5761888, 0926203, 9379084, 7863829, 49010872, 15830525, 7169794, 01065081, 45826319 #### [facility] [address] [place] [address] Metamyelocytes/Leuko cytes Manual cnt (Bld) [Pure # fraction] 2 % High <=0 [facility] Comment on above: Order Comment: Order Added by Discern Expert. Performed By: #### 1 9814828, 2552159, 5331045, 1990724, 96195373, 90393380, 5488081, 22567965, 18154116 #### [facility] [address] [place] [address] Monocytes/100 WBC (Bld) 7 % Normal 4-14 [facility] Comment on above: Order Comment: Order Added by Discern Expert. Performed By: #### 1 0198600, 4723205, 8545583, 6892667, 25768471, 35314026, 1767506, 83442364, 75891816 #### [facility] [address] [place] [address] Morphology Elie (Bld) [Interp] Normal Normal [facility] Comment on above: Order Comment: Order Added by Discern Expert. Performed By: #### 1 4978849, 7777450, 3040255, 2303182, 99964902, 65436563, 7951842, 34374647, 46353470 #### [facility] [address] [place] [address] Myelocytes/100 WBC (Bld) 2 % High <=0 [facility] Comment on above: Order Comment: Order Added by Discern Expert. Performed By: #### 1 7950851, 4849689, 0520591, 1001399, 00161163, 88547991, 0856771, 51609604, 67688470 #### [facility] [address] [place] [address] Nucleated cells (Bld) [#/Vol] 1 High <=0 [facility] Comment on above: Order Comment: Order Added by Discern Expert. Performed By: #### 1 8207042, 7582072, 5274079, 4337827, 53464812, 69216820, 7148597, 28408810, 04728240 #### [facility] [address] [place] [address] Segmented neutrophils/100 WBC (Bld) 81 % High 36-75 [facility] Comment on above: Order Comment: Order Added by Discern Expert. Performed By: #### 1 1130439, 5863976, 4631688, 4299001, 39718367, 78626046, 0950250, 20229494, 08625143 #### [facility] [address] [place] [address] Variant lymphocytes LM Ql (Bld) 0 % Invalid Interpretation Code [facility] Comment on above: Order Comment: Order Added by Discern Expert. Performed By: #### 1 9989851, 4186099, 2804853, 2694875, 09645903, 36170645, 9815025, 00667830, 53381704 #### [facility] [address] [place] [address] PTon 09-09-2020 INR Coag (PPP) [Relative time] 1.9 {INR} Invalid Interpretation Code [facility] Comment on above: Result Comment: INR results are specifically intended to assess patients stabilized on long-term Anticoagulation therapy suggested INR?s ?Less Intensive Anticoagulation? 2.0 ? 3.0 Conventional Range 3.0 ? 4.5 Performed By: #### 2 163931, 8753367 ####[facility] [address] [place] [address] PT Coag (PPP) [Time] 22.8 second(s) High 10.2-12.9 [facility] [facility] Comment on above: Performed By: #### 2 [id number] ####[facility] [address] [place] [address] PT & PTTon 09-09-2020 aPTT Coag (PPP) [Time] 31.7 second(s) Normal 25.1-36.5 [facility] Comment on above: Result Comment: Hepa rin therapeutic range (represented by Anti-Factor Xa activity of 0.2 - 0.4 U/mL) corresponds to PTT of 56.6 - 109.0 sec. Performed By: #### 1 [id number], [id number], [id number], [id number], [id number], [id number], [id number] ####[facility] [address] [place] [address] INR Coag (PPP) [Relative time] 2.0 {INR} Invalid Interpretation Code [facility] Comment on above: Result Comment: INR results are specifically intended to assess patients stabilized on long-term Anticoagulation therapy suggested INR?s ?Less Intensive Anticoagulation? 2.0 ? 3.0 Conventional Range 3.0 ? 4.5 Performed By: #### 1 [id number], [id number], [id number], [id number], [id number], [id number], [id number] ####[facility] [address] [place] [address] PT Coag (PPP) [Time] 23.6 second(s) High 10.2-12.9 [facility] Comment on above: Performed By: #### 1 [id number], [id number], [id number], [id number], [id number], [id number], [id number] ####[facility] [address] [place] [address] PTTon 09-09-2020 aPTT Coag (PPP) [Time] 30.4 second(s) Normal 25.1-36.5 [facility] Comment on above: Result Comment: Hepa rin therapeutic range (represented by Anti-Factor Xa activity of 0.2 - 0.4 U/mL) corresponds to PTT of 56.6 - 109.0 sec. Performed By: #### 2 [id number], [id number] ####[facility] [address] [place] [address] Progress Note-Nurseon 2019 Progress Note-Nurse Pt care report provi ded to JARRET Hirsch. Pts family member, Rosenda updated on pt status. Presently awaiting transport to [facility] via [facility], [place] 2200hrs Normal [facility] Progress Note-Nurse Pt care report alan d to [facility] ORTHODONTIC LAB TECHNICIAN Zach, advised of family contact information and will send SNF paperwork with patient. Normal [facility] Progress Note-Nurse Pts daughter, Rosenda updated on pt transfer and condition. Rosenda: [phone] Pts family sts pt is under extreme stress, pts spouse yesterday due to COVID infection. Normal [facility] Progress Note-Nurse Pts son updated on p t condition, presently awating updated order set. Pt returns from CT, RT at bedside for high flow o2 placement. Normal [facility] Progress Note-Nurse IV ABx completed at this time, pt to CT Normal [facility] Progress Note-Nurse Pt c/o increased dys pnea, spo2 reading 89% oxygen increased to 6lpm, nasal cannula. made aware, requests RT for high flow oxygen therapy Normal [facility] Progress Note-Nurse Advised per CT that IV no longer infuses/flushes, await IV access at this time via US. Normal [facility] Progress Note-Nurse Pt to imaging at thi s time. Normal [facility] Troponin 0 Hr.on 09-09-2020 Troponin I.cardiac [Mass/Vol] 10.10 pg/mL Normal 10.10-27.10 [facility] Comment on above: Result Comment: The 95% CI (Confidence Interval) PPV (Positive Predictive Value) for myocardial infarction in females is 38 pg/mL, in males 51 pg/mL. The results should be used in conjunction with clinical conditions of myocardial infarction. (Access High Sensitivity Troponin I Instructions For Use, [employer] [place], April 2018) Performed By: #### 1 [id number], [id number], [id number], 0291640, [id number], [id number] ####[facility] [address] [place] [address] Troponin 3 Hr.on 09-09-2020 Troponin I.cardiac [Mass/Vol] 20.20 pg/mL Normal 10.10-27.10 [facility] Comment on above: Result Comment: The 95% CI (Confidence Interval) PPV (Positive Predictive Value) for myocardial infarction in females is 38 pg/mL, in males 51 pg/mL. The results should be used in conjunction with clinical conditions of myocardial infarction. (Access High Sensitivity Troponin I Instructions For Use, [email or web address], April 2018) Performed By: #### 1 [id number] ####[facility] [address] [place] [address] Troponin 6 Hr.on 09-09-2020 Troponin I.cardiac [Mass/Vol] 37.60 pg/mL High 10.10-27.10 [facility] Comment on above: Result Comment: The 95% CI (Confidence Interval) PPV (Positive Predictive Value) for myocardial infarction in females is 38 pg/mL, in males 51 pg/mL. The results should be used in conjunction with clinical conditions of myocardial infarction. (Access High Sensitivity Troponin I Instructions For Use, [email or web address], April 2018) Performed By: #### 1 [id number] #### [facility] [address] [place] [address] XR Chest Single Viewon 09-09 XR Chest [...] DO Transcribed by: MATTHEW Technologist: JAI Normal [facility] eGFRon 09-09-2020 GFR/1.73 sq M.predicted among blacks MDRD (S/P/Bld) [Vol rate/Area] 59 mL/min/1.73 m2 Normal >=59 [facility] Comment on above: Order Comment: Order added by Discern Expert. Result Comment: eGFR is race adjusted. AA=. Performed By: #### 1 [id number], [id number], [id number], 8954941, [id number], [id number] #### [facility] [address] [place] [address] GFR/1.73 sq M.predicted among non-blacks MDRD (S/P/Bld) [Vol rate/Area] 48 mL/min/1.73 m2 Low >=59 [facility] Comment on above: Order Comment: Order added by Discern Expert. Result Comment: Technology And Engineering Teacher les kidney disease could be indicated at eGFR's of less than 60 mL/min/1.73m2. Kidney failure is indicated at less than 15 mL/min/1.73m2. Performed By: #### 1 [id number], [id number], [id number], [id number], [id number], [id number], [id number] #### [facility] [address] [place] [address] Vital Signs Date Time Vital Sign Value Performing Clinician Facility 05-20-2023 [id number] Body height 162.6 cm Sandeep Lenz MD Work Phone: [facility] 05-20-2023 15:10-0400 Body temperature 97.81 [degF] Sandeep Lenz MD Work Phone: [facility] 05-20-2023 15:10-0400 Body weight 58.88 kg Sandeep Lenz MD Work Phone: [facility] 05-20-2023 15:10-0400 Diastolic blood pressure 72 mm[Hg] Sandeep Lenz MD Work Phone: [facility] 05-20-2023 15:10-0400 Heart rate 68 /min Sandeep Lenz MD Work Phone: [facility] 05-20-2023 15:10-0400 Respiratory rate 16 /min Sandeep Lenz MD Work Phone: [facility] 05-20-2023 15:10-0400 SaO2% (BldA) [Mass fraction] 99 % Sandeep Lenz MD Work Phone: [facility] 05-20-2023 15:10-0400 Systolic blood pressure 168 mm[Hg] Sandeep Lenz MD Work Phone: [facility] 04-30-2023 14:20-0400 Body temperature 97.59 [degF] Chair [place] Work Phone: [facility] 04-30-2023 14:20-0400 Diastolic blood pressure 72 mm[Hg] Chair [place] Work Phone: [facility] 04-30-2023 14:20-0400 Heart rate 64 /min Chair Marcos Work Phone: [facility] 04-30-2023 14:20-0400 Respiratory rate 16 /min Chair [place] Work Phone: [facility] 04-30-2023 14:20-0400 SaO2% (BldA) [Mass fraction] 98 % Chair Marcos Work Phone: [facility] 04-30-2023 14:20-0400 Systolic blood pressure 147 mm[Hg] Chair [place] Work Phone: [facility] 04-29-2023 15:21-0400 Body height 162.6 cm Sandeep Lenz MD Work Phone: [facility] 04-29-2023 15:21-0400 Body temperature 97 [degF] Sandeep Lenz MD Work Phone: [facility] 04-29-2023 15:21-0400 Body weight 58.24 kg Sandeep Lenz MD Work Phone: [facility] 04-29-2023 15:21-0400 Diastolic blood pressure 66 mm[Hg] Sandeep Lenz MD Work Phone: [facility] 04-29-2023 15:21-0400 Heart rate 66 /min Sandeep Lenz MD Work Phone: [facility] 04-29-2023 15:21-0400 Respiratory rate 16 /min Sandeep Lenz MD Work Phone: [facility] 04-29-2023 15:21-0400 SaO2% (BldA) [Mass fraction] 96 % Sandeep Lenz MD Work Phone: [facility] 04-29-2023 15:21-0400 Systolic blood pressure 153 mm[Hg] Sandeep Lenz MD Work Phone: [facility] 05-19-2022 11:30-0400 Diastolic blood pressure 80 mm[Hg] Et3 [facility] 05-19-2022 11:30-0400 Heart rate 68 /min Et3 [facility] 05-19-2022 11:30-0400 Respiratory rate 16 /min Et3 [facility] 05-19-2022 11:30-0400 SaO2% (BldA) [Mass fraction] 98 % Et3 [facility] 05-19-2022 11:30-0400 Systolic blood pressure 175 mm[Hg] Et3 [facility] 01-08-2022 13:03-0400 Body height 162.6 cm Sandeep Lenz MD Work Phone: [facility] 01-08-2022 13:03-0400 Body temperature 97.39 [degF] Sandeep Lenz MD Work Phone: [facility] 01-08-2022 13:03-0400 Body weight 64.23 kg Sandeep Lenz MD Work Phone: [facility] 01-08-2022 13:03-0400 Diastolic blood pressure 69 mm[Hg] Sandeep Lenz MD Work Phone: [facility] 01-08-2022 13:03-0400 Heart rate 68 /min aSndeep Lenz MD Work Phone: [facility] 01-08-2022 13:03-0400 Respiratory rate 16 /min Sandeep Lenz MD Work Phone: [facility] 01-08-2022 13:03-0400 SaO2% (BldA) [Mass fraction] 97 % Sandeep Lenz MD Work Phone: [facility] 01-08-2022 13:03-0400 Systolic blood pressure 150 mm[Hg] Sandeep Lenz MD Work Phone: [facility] 11-11-2021 13:00-0500 Diastolic blood pressure 69 mm[Hg] MD Eduardo Sharpe Work Phone: [facility] 11-11-2021 13:00-0500 Heart rate 65 /min MD Eduardo Sharpe Work Phone: [facility] 11-11-2021 13:00-0500 Respiratory rate 16 /min MD Eduardo Sharpe Work Phone: [facility] 11-11-2021 13:00-0500 SaO2% (BldA) [Mass fraction] 96 % MD Eduardo Sharpe Work Phone: [facility] 11-11-2021 13:00-0500 Systolic blood pressure 129 mm[Hg] MD Eduardo Sharpe Work Phone: [facility] 11-11-2021 12:00-0500 Body temperature 98 [degF] MD Eduardo Sharpe Work Phone: [facility] 11-11-2021 06:00-0500 Body weight 63 kg MD Eduardo Sharpe Work Phone: [facility] 11-10-2021 12:59-0500 Body height 163.83 cm MD Eduardo Sharpe Work Phone: [facility] 11-09-2021 18:45-0500 Body mass index (BMI) [Ratio] 23.8 kg/m2 MD Eduardo Sharpe Work Phone: [facility] Encounters Encounter Date Encounter Type Care Provider Facility Start: 08-19-2023 End: 08-19-2023 ambulatory EDUARDO SHARPE Facility:[facility] Start: 08-19-2023 Telephone encounter Clemente Hull Hematology/Oncology Comment on above: Results Start: 07-02-2023 End: 07-02-2023 ambulatory EDUARDO SHARPE Facility:[facility] Start: 06-05-2023 End: 06-05-2023 ambulatory Bala Welshgiannapritesh Other [facility] Other Start: 06-05-2023 Telephone encounter Sadimaureen Welshyosvany [facility] Start: 05-21-2023 Telephone encounter Clemente Hull Hematology/Oncology Comment on above: Results Start: 05-20-2023 End: 05-20-2023 ambulatory EDUARDO SHARPE Facility:[facility] Start: 05-20-2023 End: 05-20-2023 Office outpatient visit 25 minutes Sandeep Lenz MD Work Phone: Hematology/Oncology Comment on above: Hypercalcemia (Prima ry Dx); Malignant neoplasm of upper-outer quadrant of left breast in female, estrogen receptor positive (HCC); Stage 3 chronic kidney disease, unspecified whether stage 3a or 3b CKD (HCC) Start: 05-20-2023 Telephone encounter Sandeep bazan MD Work Phone: [facility] Comment on above: Referral Information (Nephrology) Start: 05-09-2023 Social Work Aleida QUESADA Hematolo gy/Oncology Start: 05-07-2023 Refill Sandeep aragon MD Work Phone: Hematology/Oncology Comment on above: Refill Request Start: 04-30-2023 End: 04-30-2023 Infusion Center Chair [place] Work Phone: Hematology/Oncology Comment on above: Hypercalcemia (Prima ry Dx); Other specified menopausal and perimenopausal disorders; Malignant neoplasm of upper-outer quadrant of left breast in female, estrogen receptor positive (HCC) Start: 04-29-2023 End: 04-29-2023 ambulatory EDUARDO SHARPE Facility:[facility] Start: 04-29-2023 End: 04-29-2023 Office outpatient [...] CKD (HCC) Start: 04-01-2023 End: 04-01-2023 ambulatory [facility] Start: 01-14-2023 End: 01-14-2023 ambulatory [facility] Start: 09-03-2022 End: 09-03-2022 ambulatory RAHEEL [facility] Start: 08-23-2022 End: 09-23-2022 ambulatory SHAIKH Barbara [...] Start: 05-19-2022 End: 05-19-2022 ambulatory [facility] Emergenc y Triage, Treat and Transport Start: 05-19-2022 End: 05-19-2022 Emergency department patient visit [facility] Emergency Triage, Treat and Transport Comment on above: Arrived Start: 05-09-2022 End: 05-10-2022 ambulatory EDUARDO SHARPE Facility:[facility] Start: 05-07-2022 End: 05-08-2022 [...] encounter procedure Sandeep Lenz MD Work Phone: [facility] Comment on above: Malignant neoplasm o f upper-outer quadrant of left breast in female, estrogen receptor positive (HCC) (Primary Dx) Start: 01-05-2022 End: 01-06-2022 ambulatory SANDEEP LENZ Facility:[facility] Start: 12-27-2021 End: 12-27-2021 Patient encounter procedure MD Eduardo Sharpe Work Phone: [facility] Start: 12-22-2021 End: 01-19-[address] EDUARDO SHARPE Facility:[facility] Start: 11-30-2021 End: 11-30-2021 ambulatory Brayden Hernandez Other [facility] Other Start: 11-30-2021 Office outpatient vi sit 15 minutes Brayden Hernandez [facility] Start: 11-21-2021 End: 12-21-2021 ambulatory SHAIKH Barbara AGUIAR Facility:[facility] Start: 11-17-2021 End: 11-17-2021 Patient encounter procedure MD Eduardo Sharpe Work Phone: [facility] Start: 11-09-2021 End: 11-11-2021 Evaluation and management of inpatient MD Eduardo Sharpe Work Phone: [facility] Start: 11-09-2021 End: 11-09-2021 ambulatory [...] Detail Author Start: 08-19-2026 [facility] Start: 05-20-2026 DIABETES SCREEN DIABETES SCREEN [facility] Start: 05-20-2026 [facility] Start: 04-30-2026 DIABETES SCREEN DIABETES SCREEN [facility] Start: 04-29-2026 DIABETES SCREEN DIABETES SCREEN [facility] Start: 01-08-2025 DIABETES SCREEN DIABETES SCREEN [facility] Start: 08-19-2024 Hemoglobin/Hematocrit Hemoglobin/Hem [facility] Start: 08-19-2024 Serum Creatinine Serum Creatinine [facility] Start: 05-20-2024 HEMOGLOBIN/HEMATOCRIT HEMOGLOBIN/HEM [facility] Start: 05-20-2024 SERUM CREATININE SERUM CREATININE [facility] Start: 04-30-2024 HEMOGLOBIN/HEMATOCRIT HEMOGLOBIN/HEM [facility] Start: 04-30-2024 SERUM CREATININE SERUM CREATININE [facility] Start: 05-24-2023 Influenza vaccination [facility] Start: 04-29-2023 End: 06-29-2023 Parathyrin related protein [Moles/volume] in Serum or Plasma PTH RELATED PEPTIDE Lab Routine Malignant neoplasm of upper-outer quadrant of left breast in female, estrogen receptor positive (HCC) Hypercalcemia Expected: 04/29/2023, Expires: 06/29/2023 [facility] Work Phone: Comment on above: Expected: 04/29/2023 , Expires: 06/29/2023 Start: 04-29-2023 End: 06-29-2023 PTH, INTACT (WITHOUT CALCIUM) PTH, INTACT (WITHOUT CALCIUM) Lab Routine Malignant neoplasm of upper-outer quadrant of left breast in female, estrogen receptor positive (HCC) Hypercalcemia Expected: 04/29/2023, Expires: 06/29/2023 [facility] Work Phone: Comment on above: Expected: 04/29/2023 , Expires: 06/29/2023 Start: 09-23-2022 ADVANCE DIRECTIVE DISCUSSION ADVANCE DIRECTIVE DISCUSSION [facility] Start: 09-23-2022 DEPRESSION ASSESSMENT DEPRESSION ASS ESSMENT [facility] Start: 07-09-2022 End: 09-08-2022 25-hydroxyvitamin D3 [Mass/volume] in Serum or Plasma VITAMIN D 25 HYDROXY Lab Routine Malignant neoplasm of upper-outer quadrant of left breast in female, estrogen receptor positive (HCC) Encounter for screening for osteoporosis Hypercalcemia Expected: 07/09/2022 (Approximate), Expires: 09/08/2022 [facility] Work Phone: Comment on above: Expected: 07/09/2022 (Approximate), Expires: 09/08/2022 Start: 07-09-2022 End: 09-08-2022 Calcitriol [Mass/volume] in Serum or Plasma VITAMIN D1 25-DIHYDR Lab Routine Malignant neoplasm of upper-outer quadrant of left breast in female, estrogen receptor positive (HCC) Encounter for screening for osteoporosis Expected: 07/09/2022 (Approximate), Expires: 09/08/2022 [facility] Work Phone: Comment on above: Expected: 07/09/2022 (Approximate), Expires: 09/08/2022 Start: 07-09-2022 End: 06-30-2023 CBC W Auto Differential panel - Blood CBC + DIFF Lab Routine Malignant neoplasm of upper-outer quadrant of left breast in female, estrogen receptor positive (HCC) Encounter for screening for osteoporosis Expected: 07/09/2022 (Approximate), Expires: 06/30/2023 [facility] Work Phone: Comment on above: Expected: 07/09/2022 (Approximate), Expires: 06/30/2023 Start: 07-09-2022 End: 06-30-2023 Comprehensive metabolic 2000 panel - Serum or Plasma COMP METABOLIC PANEL Lab Routine Malignant neoplasm of upper-outer quadrant of left breast in female, estrogen receptor positive (HCC) Encounter for screening for osteoporosis Expected: 07/09/2022 (Approximate), Expires: 06/30/2023 [facility] Work Phone: Comment on above: Expected: 07/09/2022 (Approximate), Expires: 06/30/2023 Start: 06-23-2022 Influenza vaccination Influenza Vacc ine (#1) [facility] Start: 05-24-2022 Influenza vaccination INFLUENZA (#1) [facility] Start: 09-23-2021 ADVANCE DIRECTIVE DISCUSSION ADVANCE DIRECTIVE DISCUSSION [facility] Start: 09-23-2021 DEPRESSION ASSESSMENT DEPRESSION ASS ESSMENT [facility] Start: 03-10-2021 Adult depression screening assessment DEPRESSION SCREENING [facility] Start: 06-17-2019 Pneumococcal Vaccine : 65+ (2 - PPSV23 or PCV20) Pneumococcal Vaccine: 65+ (2 - PPSV23 or PCV20) [facility] Start: 06-17-2019 PNEUMOCOCCAL: 65+ (2 - PPSV23 if available, else PCV20) PNEUMOCOCCAL: 65+ (2 - PPSV23 if available, else PCV20) [facility] Start: 06-17-2019 PNEUMOCOCCAL: 65+ (2 - PPSV23 or PCV20) PNEUMOCOCCAL: 65+ (2 - PPSV23 or PCV20) [facility] Start: 2009 BONE DENSITY BONE DENSITY [facility] Start: 2009 Bone Density Screening Bone Density Screening [facility] Start: 2009 Pneumococcal vaccination Pneumococcal Vaccine(s) (65+ yrs) (1 - PCV) [facility] Start: 2009 PNEUMOVAX AGE 65 AND OVER WITH 5YR LOOKBACK (#1) PNEUMOVAX AGE 65 AND OVER WITH 5YR LOOKBACK (#1) [facility] Start: 2009 Screening for osteoporosis Bone Densitometry [facility] Start: 2004 RSV Vaccine (1 - 1-d ose 60+ series) RSV Vaccine (1 - 1-dose 60+ series) [facility] Start: 1994 Shingles (RZV) Vacci ne (1 of 2) Shingles (RZV) Vaccine (1 of 2) [facility] Start: 1994 SHINGRIX VACCINE (1 of 2) SHINGRIX VACCINE (1 of 2) [facility] Start: 1963 Urine microalbumin profile [facility] Start: 1962 ANNUAL PCP TEAM DOLL EYE SETTER LES DISEASE VISIT ANNUAL PCP TEAM CHRONIC DISEASE VISIT [facility] Start: 1962 HEPATITIS C SCREENING HEPATITIS C SC REENING [facility] Start: 1962 Hepatitis C screening Hepatitis C An tibody [facility] Start: 1962 Tetanus + diphtheria + acellular pertussis vaccine (product) Tdap Booster [facility] Start: 1956 COVID-19 VACCINE (1) COVID-19 VACCIN E (1) [facility] Start: 04-09-1945 COVID-19 Vaccine (#1) COVID-19 Vacci ne (#1) [facility] End: 05-28-2024 Bone &/joint imaging whole body NM BONE WHOLE BODY Radiology Routine Malignant neoplasm of breast in female, estrogen receptor positive, unspecified laterality, unspecified site of breast (HCC) 1 Occurrences starting 04/29/2023 until 05/28/2024 [facility] Work Phone: Comment on above: 1 [...] for 9 Occurrences starting 05/20/2023 until 05/19/2024 [facility] Work Phone: Comment on above: Every [...] Occurrences starting 05/20/2023 until 05/19/2024, 1 completed [facility] Work Phone: Comment on above: Every [...] Occurrences starting 05/20/2023 until 05/19/2024, 1 completed [facility] Work Phone: Comment on above: Every [...] Occurrences starting 05/20/2023 until 05/19/2024, 1 completed [facility] Work Phone: Comment on above: Every 6 weeks for 9 Occurrences starting 05/20/2023 until 05/19/2024, 1 completed Parathyrin related protein [Moles/volume] in Serum or Plasma PTH RELATED PEPTIDE Lab Routine Malignant neoplasm of upper-outer quadrant of left breast in female, estrogen receptor positive (HCC) Hypercalcemia 04/30/2023 3:55 PM EDT [facility] Work Phone: Patient Education Heart Healthy Diet [facility] Work Phone: Patient referral [facility] Work Phone: [facility] Immunizations Immunization Date Immunization Notes Care Provider [facility] 07-11-2022 influenza, high dose seasonal, preservative-free Clemente Srivastava RN [facility] 07-11-2022 pneumococcal polysaccharide vaccine, 23 valent Clemente Srivastava RN [facility] 07-11-2022 influenza virus vacc ine, unspecified formulation Sandeep Lenz MD Work Phone: [facility] 07-07-2021 influenza, high-dose , quadrivalent vaccine (FLUZONE HIGH DOSE QUADRIVALENT) Sandeep Lenz MD Work Phone: [facility] 07-07-2021 unknown vaccine or i mmune globulin Clemente Srivastava RN [facility] 06-12-2021 influenza, high dose seasonal, preservative-free Clemente Srivastava RN [facility] 06-22-2020 influenza, high dose seasonal, preservative-free Sandeep Lenz MD Work Phone: [facility] 06-15-2020 Seasonal trivalent influenza vaccine, adjuvanted, preservative free Sandeep Lenz MD Work Phone: [facility] 06-17-2018 influenza, high dose seasonal, preservative-free Sandeep Lenz MD Work Phone: [facility] 06-17-2018 pneumococcal conjuga te vaccine, 13 valent Sandeep Lenz MD Work Phone: [facility] 07-09-2017 influenza, high dose seasonal, preservative-free Sandeep Lenz MD Work Phone: [facility] 07-09-2017 pneumococcal conjuga te vaccine, 13 valent Sandeep Lenz MD Work Phone: [facility] Payers Date Payer Category Payer Unknown MEDICA RE SUPPLEMENT [id number] 2014-Present [phone] [address] [address] [place] [address] Indemnity [id number] 2014 Unknown MEDICA RE SUPPLEMENT [id number] 2014-Present [phone] [address] [address] [place] [address] Indemnity [id number] 2009 Medicare MEDICARE MEDICAR E A AND B [id number] 2009-Present [phone] [address] [address] [place] [address] Medicare [id number] .[id number] 2009 Medicare [id number]. 1.13.159.2.7.3 .471362.315 1960 Medicare [id number] 1959 Unknown [id number] 1959 Unknown [id number] 1944 Unknown [id number] 2.16.840.1.402694.3.579.2.647 1944 Unknown [id number] 2.16.840.1.127108.3.579.2.732 1944 Unknown [id number] 2.16.840.1.031046.3.579.2.593 1944 Unknown [id number] 2.16.840.1.447995.3.579.2.593 1944 Unknown [id number] 2.16.840.1.722095.3.579.2.593 1944 Unknown [id number] 2.16.840.1.750802.3.579.2.593 1944 Unknown [id number] 2.16.840.1.975250.3.579.2.593 1944 Unknown [id number] 2.16.840.1.535778.3.579.2.593 1944 Unknown [id number] 2.16.840.1.827158.3.579.2.593 1944 Unknown [id number] 2.16.840.1.572742.3.579.2.593 1944 Unknown [id number] 2.16.840.1.644125.3.579.2.593 1944 Unknown [id number] 2.16.840.1.981649.3.579.2.593 1944 Unknown [id number] 2.16.840.1.638763.3.579.2.593 1944 Unknown [id number] 2.16.840.1.132715.3.579.2.593 1944 Unknown [id number] 2.16.840.1.091411.3.579.2.593 1944 Unknown [id number] 2.16.840.1.172154.3.579.2.593 1944 Unknown [id number] 2.16.840.1.946584.3.579.2.593 1944 Unknown [id number] 2.16.840.1.438521.3.579.2.593 1944 Unknown [id number] 2.16.840.1.558200.3.579.2.593 1944 Unknown [id number] 2.16.840.1.734839.3.579.2.593 1944 Unknown [id number] 2.16.840.1.071821.3.579.2.593 1944 Unknown [id number] 2.16.840.1.170965.3.579.2.593 1944 Unknown [id number] 2.16.840.1.151857.3.579.2.593 1944 Unknown [id number] 2.16.840.1.628567.3.579.2.593 1944 Unknown [id number] 2.16.840.1.272413.3.579.2.593 Medicare Self Pay [id number] Self-pay Self Pay [id number] Unknown [id number] Unknown [id number] Social History Date Type Detail Facility Start: 11-10-2021 End: 04-29-2023 Tobacco smoking status NHIS Never smoked tobacco (finding) [facility] Start: 1945 Sex Assigned At Female F [facility] Start: 06-12-2018 End: 04-29-2023 Tobacco use and exposure Smokeless tobacco non-user [facility] Start: 01-08-2022 End: 08-19-2023 Alcohol intake Current drinker of alcohol (finding) [facility] Start: 06-12-2018 History SDOH Alcohol Comment very rare [facility] Start: 1945 Sex Assigned At Not on file [facility] Start: 12-29-2021 End: 01-08-2022 Exposure to SARS-CoV-2 (event) Not sure [facility] Start: 04-29-2023 End: 08-19-2023 Sex Assigned At [facility] Tobacco smoking status KSIS Tobacco smoking consumption [facility] Start: 04-29-2023 End: 08-19-2023 History of Social function [facility] Adult Depression Screening Assessment 0 [facility] NEGATED: Highlighted rowStart: NINF History of tobacco use Passive smoker [facility] Goals Date Patient Goal Desired Activity /State Functional Status Date Assessment Result Facility 11-09-2021 Functional status Patient at [facility] Work Phone: Mental Status Date Assessment Result Facility 11-09-2021 Cognitive function Cognitive Sta tus Patient at Baseline [facility] Work Phone: Clinical Notes 09-16-2020 to 08-19-2023 Telephone Encounter - Clemente Srivastava RN - 08/19/2023 2:47 PM ESTTelephone Encounter - Clemente Srivastava RN - 08/19/2023 2:47 PM ESTTelephone Encounter - Jennifer Aviles - 06/10/2023 12:53 PM EDT Note Date & Type Note Facility 08-19-2023 Note HNO ID: [id number] Author: Sandeep Lenz MD Service: ? Author Type: Physician Type: Progress Notes Filed: 08/20/2023 7:07 AM Note Text: [facility] NAME: Andrew Barros CLINIC NO.: [id number] DATE OF SERVICE: August 19, 2023 (Eduardo) [...] outer quadrant, invasive ductal carcinoma, ER postive, WA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 Mammograms at [facility] on 01/04/2021 Bi-Rads 2 benign. __ [...] or petechiae. ALLERGIES (more content not included)... [facility] 08-19-2023 Miscellaneous Notes Pt aware of Orlando's message. She denies any additional questions, needs or concerns at this time. Clemente Srivastava RN ----- Message from Sandeep Lenz MD sent at 08/19/2023 2:33 PM EST ----- Calcium janki normal. Kidney function is stable documented in this encounter [facility] 06-10-2023 Miscellaneous Notes Called Nephrology office spoke [...] Thanks! Samina Anderson documented in this encounter [facility] 05-21-2023 Miscellaneous Notes Pt aware of results and denies any questions or concerns at this time. She was transferred to [facility] to set up Q 6 week lab appts as requested. Clemente Srivastava RN ----- Message from Sandeep Lenz MD sent at 05/21/2023 10:15 AM EDT ----- Calcium was improved. - kidney function stable. CBC was normal. documented in this encounter [facility] 05-20-2023 Note HNO ID: [id number] Author: Sandeep Lenz MD Service: ? Author Type: Physician Type: Progress Notes Filed: 05/30/2023 5:58 AM Note Text: [facility] NAME: Papo Andrew [facility] NO.: [id number] DATE OF SERVICE: May 20, 2023 (Eduardo) [...] outer quadrant, invasive ductal carcinoma, ER postive, WA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 Mammograms at [facility] on 01/04/2021 Bi-Rads 2 benign. REVIEW [...] wounds or petechiae. ALLERGIES: ALLERGIES Allergen Reactions Uxdfbls-Ocd-Eno Red* Unknown Other reaction(s): AOF MEDICATIONS: anastrozole [...] See your shae (more content not included)... [facility] 05-20-2023 Instructions Sandeep Lenz MD - 05/20/2023 3:59 PM EDT Continue Arimidex. Refer to nephrology for hypercalcemia and kidney failure Repeat labs today RTC in 3 months - repeat labs documented in this encounter [facility] 05-20-2023 History of Presen t illness Narrative [facility] NAME: Andrew Barros [facility] NO.: [id number] DATE OF SERVICE: May 20, 2023 (Eduardo) [...] outer quadrant, invasive ductal carcinoma, ER postive, WA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 Mammograms at [facility] on 01/04/2021 Bi-Rads 2 benign. REVIEW [...] wounds or petechiae. ALLERGIES: ALLERGIES Allergen Reactions Kqpphai-Vpm-Qyz Red* Unknown Other reaction(s): AOF MEDICATIONS: anastrozole [...] which included preparing to see the patient, apwj-id-fcmo patient care, completing clinical documentation, obtaining and/or reviewing separately obtained history, performing a medically appropriate examination, communicating results to the patient/family/caregiver and care coordination (not separately reported). Sandeep Lenz MD, CPE Services Provided at: [place], [place] & [place], [place] CC: Eduardo Sharpe MD [address] [facility] [address] documented in this encounter [facility] 05-09-2023 Note HNO ID: [id number] Author: Aleida Vargas LSW Service: ? Author Type: [employer]er Type: Progress Notes Filed: 05/09/2023 11:00 AM Note Text: Patient appears on the [facility] First Time Treatment List for a non-oncology treatment. No psychosocial assessment is indicated. DAPHNE Gupta [facility] 05-09-2023 History of Presen t illness Narrative Patient appears on the [facility] First Time Treatment List for a non-oncology treatment. No psychosocial assessment is indicated. DAPHNE Gupta documented in this encounter [facility] 04-29-2023 Note HNO ID: [id number] Author: Sandeep Lenz MD Service: ? Author Type: Physician Type: Progress Notes Filed: 05/05/2023 6:04 PM Note Text: NAME: Andrew Barros [facility] NO.: [id number] DATE OF SERVICE: April 29, 2023 (Eduardo) [...] outer quadrant, invasive ductal carcinoma, ER postive, WA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 Mammograms at [facility] on 01/04/2021 Bi-Rads 2 benign. REVIEW [...] of recurring mass. ALLERGIES: ALLERGIES Allergen Reactions Xuftdcv-Khm-Syx Red* Unknown Other reaction(s): AOF MEDICATIONS: doxazosin [...] mouth twice elaine (more content not included)... [facility] 04-29-2023 Instructions Sandeep Lenz MD - 04/29/2023 4:09 PM EDT Continue Arimidex. Stop Calcium Continue Vitamin D. Zometa for hypercalcemia later this week Repeat labs and tumor markers prior to zometa Bone scan - [facility] is fine. RTC after Bone scan documented in this encounter [facility] 04-29-2023 History of Presen t illness Narrative Images from the original note were not included. NAME: BarrosAndrew CLINIC NO.: [id number] DATE OF SERVICE: April 29, 2023 (Eduardo) [...] outer quadrant, invasive ductal carcinoma, ER postive, WA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 Mammograms at [facility] on 01/04/2021 Bi-Rads 2 benign. REVIEW [...] of recurring mass. ALLERGIES: ALLERGIES Allergen Reactions Qrbunzc-Pec-Fcr Red* Unknown Other reaction(s): AOF MEDICATIONS: doxazosin [...] acetaminophen 650 mg tab(s) (TYLENOL), DISCONTINUED: zoledronic xl-avefeych-9.9NaCl 4 mg iv piggyback 100 mL (ZOMETA) (E83.52) Hypercalcemia Plan: CA 27.29 BLOOD, CA 15-3 BLD, CBC + DIFF, COMP METABOLIC PANEL, PTH, INTACT (WITHOUT CALCIUM), PTH RELATED PEPTIDE, PTH, INTACT (WITHOUT CALCIUM), DISCONTINUED: PHARMACY COMMUNICATION PATIENT ARRIVED, DISCONTINUED: acetaminophen 650 mg tab(s) (TYLENOL), DISCONTINUED: zoledronic de-cdnxycat-2.9NaCl 4 mg iv piggyback 100 mL (ZOMETA) [...] which included preparing to see the patient, mwmy-tj-bwzv patient care, completing clinical documentation, obtaining and/or reviewing separately obtained history, performing a medically appropriate examination, communicating results to the patient/family/caregiver and care coordination (not separately reported). Sandeep Lenz MD, CPE Services Provided at: [place], [place] & [place], [place] CC: Eduardo Sharpe MD [address] [facility] [address] documented in this encounter [facility] 04-01-2023 Note [place] [facility] - [facility] Subjective Andrew Barros is a 77 [...] February 2023 she was admitted to the [facility] emergency room with epistaxis. She was [...] General: Skin i (more content not included)... [facility] 01-14-2023 Note Cardiology Clinic No te [...] feeling fatigued. -She was recently discharged from [facility] d/t PNA and sepsis. She was [...] perfused Neuro: A&Ox3, (more content not included)... [facility] 09-03-2022 Note Patient here for 3 m o follow up PAF and to re-discuss the Watchman device. Most recent hospital discharge was 08/24/22 from [facility]. She was started on digoxin. She saw Dr. Sharpe last week for hospital follow up and her amlodipine was put on hold for now due to hypotension. C/o fatigue. She's using O2 at night. Review of Systems Constitutional: Positive for malaise/fatigue and weight loss. Musculoskeletal: Positive for muscle weakness. All other systems reviewed and are negative. [facility] 09-03-2022 Note Cardiovascular Medic eliud [facility] Cardiology SUBJECTIVE Chief Complaint Patient presents with Hospital Follow-up Andrew Barros is a 76 y.o. female here for follow-up. HPI Patient here for 3 mo follow up PAF and to re-discuss the Watchman device. Most recent hospital discharge was 08/24/22 from [facility]. She was started on digoxin. She saw Dr. Sharpe last week for hospital follow up and her amlodipine was put on hold for now due to hypotension. C/o fatigue. She's using O2 at night. 09/03/2022 -She c/o feeling fatigued. -She was recently discharged from [facility] d/t PNA and sepsis. She was [...] Alcohol use: Not Currently Allergies Allergen Reactions Yewpnvl-Chl-Gwb Reductase Inhibitors Other Other reaction(s): AOF ROS [...] TAKE 1 TABL (more content not included)... [facility] 06-29-2022 Miscellaneous Notes Patient has an appt on 07/09/22. Would you like labs, if so place orders. Arabella Cotter MA documented in this encounter [facility] 05-19-2022 History of Presen t illness Narrative Images from the original note were not included. EMERGENCY TRIAGE, TREAT AND TRANSPORT (ET3) DOCUMENTATION OF TELEHEALTH VISIT Date / Time: 05/19/2022 / 1130 Name: Andrew Barros : 1945 SSN: (Not on file) EMS Agency: [facility] [x] Verbal consent obtained [] Implied [...] Kristian Mcwilliams MD documented in this encounter [facility] 01-08-2022 History of Presen t illness Narrative Images from the original note were not included. Radiation Oncology - Follow Up Note PATIENT NAME: Andrew Barros PATIENT DIAGNOSIS/PATIENT IDENTIFICATION: Ms. Barros is a 76-year old female with Infiltrating ductal carcinoma of the Left breast, UOQ, pathologic stage IIA (pT1c pN1a M0), ER-positive, WA-positive and Her2/lauren not amplified, s/p partial mastectomy [...] was otherwise noncontributory. ALLERGIES ALLERGIES Allergen Reactions Vksfyfz-Sby-Pmt Red* Unknown Other reaction(s): AOF MEDICATIONS: Current [...] pathologic stage IIA (pT1c pN1a M0), ER-positive, WA-positive and Her2/lauren not amplified, s/p partial mastectomy [...] which included preparing to see the patient, vqur-xm-cevf patient care and counseling and educating the patient/family/caregiver. This document has been created with the use of voice recognition technology. It may contain inaccuracies, misspellings, inaccurate syntax or inappropriate word context that are a result of the inadequacies/shortcomings of said technology/software. documented in this encounter [facility] 01-08-2022 History of Presen t illness Narrative Images from the original note were not included. NAME: Andrew Barros [facility] NO.: [id number] DATE OF SERVICE: January 08, 2022 Some [...] outer quadrant, invasive ductal carcinoma, ER postive, WA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 Mammograms at [facility] on 01/04/2021 Bi-Rads 2 benign. REVIEW [...] of recurring mass. ALLERGIES: ALLERGIES Allergen Reactions Qmdgfle-Syr-Siq Red* Unknown Other reaction(s): AOF MEDICATIONS: amLODIPine [...] which included preparing to see the patient, dveb-cp-kqon patient care, completing clinical documentation, obtaining and/or reviewing separately obtained history, performing a medically appropriate examination, communicating results to the patient/family/caregiver and care coordination (not separately reported). Sandeep Lenz MD, CPE Services Provided at: [place], [place] & [place], [place] CC: Eduardo Sharpe MD [address] [facility] [address] documented in this encounter [facility] 01-08-2022 Nurse Note Patient has had brain bleeds since being here last she is seeing Dr. Hernandez , she has been in [facility] as an inpatient due to the bleeds. Arabella Cotter MA documented in this encounter [facility] 11-30-2021 Evaluation note Encounter Date Diagnosis Assessment [...] present CT and compared to the previous. [place] Other 12-25-2020 NoteMicrobiology PROCEDURE: Blood Culture Charcoal [R1] SOURCE: Blood BODY SITE: Arm L COLLECTED DATE/TIME: 09/09/2020 13:00 EST RECEIVED DATE/TIME: 09/09/2020 14:05 EST START DATE/TIME: 09/09/2020 14:05 EST FREE TEXT SOURCE: Koko Gallardo DO, DO, John FINAL REPORTS Final Report [] Verified Date/Time: 09/16/2020 16:03 EST No growth at 7 days. Performing Locations R1: [facility], [address] [place] [address], [address] [place] [address], FbpyltBarney Children'S Medical CenterComment on above:Performed By: #### [id number] ####[facility] [address] [place] [address] [id number] NoteMicrobiology PROCEDURE: Blood Culture Charcoal [R1] SOURCE: Blood BODY SITE: Hand L COLLECTED DATE/TIME: 09/09/2020 13:49 EST RECEIVED DATE/TIME: 09/09/2020 14:06 EST START DATE/TIME: 09/09/2020 14:06 EST FREE TEXT SOURCE: Koko Pettit DO, DO, John FINAL REPORTS Final Report [] Verified Date/Time: 09/16/2020 16:01 EST No growth at 7 days. Performing Locations R1: [facility], [address] [place] [address], [address] [place] [address], RwvucgBarney Children'S Medical CenterComment on above:Performed By: #### [id number] #### [facility] [address] [place] [address] [id number] note* Diagnosis Onset Date Resolution Status Atrial fibrillation acute Diabetes acute Hypertension acute Intracerebral hemorrhage acu te Nontraumatic intracerebral hemorrhage acute [facility] Work Phone: Evaluation note* Diagnosis Malignant neoplasm of upper-outer quadrant of left breast in female, estrogen receptor positive (HCC)- Primary Encounter for screening for osteoporosis Special screening for osteoporosis Hypercalcemia [facility] Diagnosis Malignant neoplasm of upper-outer quadrant of left breast in female, estrogen receptor positive (HCC)- Primary documented in this encounter [facility] note* Diagnosis Dyspnea, unspecified type- Primary documented in this encounter [facility] note* Diagnosis Malignant neoplasm of upper-outer quadrant of left breast in female, estrogen receptor positive (HCC)- Primary Encounter for screening for osteoporosis Special screening for osteoporosis Hypercalcemia Hypercalcemia documented in this encounter [facility] note* Diagnosis Malignant neoplasm of upper-outer quadrant of left breast in female, estrogen receptor positive (HCC) documented in this encounter [facility] note* Diagnosis Hypercalcemia- Primary Other specified menopausal and perimenopausal disorders Malignant neoplasm of upper-outer quadrant of left breast in female, estrogen receptor positive (HCC) documented in this encounter [facility] note* Diagnosis Malignant neoplasm of upper-outer quadrant of left breast in female, estrogen receptor positive (HCC)- Primary Hypercalcemia Malignant neoplasm of breast in female, estrogen receptor positive, unspecified laterality, unspecified site of breast (HCC) Stage 3 chronic kidney disease, unspecified whether stage 3a or 3b CKD (HCC) documented in this encounter [facility] note* Diagnosis Malignant neoplasm of upper-outer quadrant of left breast in female, estrogen receptor positive (HCC) documented in this encounter [facility] note* Diagnosis Hypercalcemia- Primary Malignant neoplasm of upper-outer quadrant of left breast in female, estrogen receptor positive (HCC) Stage 3 chronic kidney disease, unspecified whether stage 3a or 3b CKD (HCC) documented in this encounter [facility] noteNo InformationNort [place] Other History general Narrative - Reported* Type Description Date Medical History hypertension Medical History heart disease Medical History Esophageal reflux Medical History diabetes mallitus Medical History cancer Surgical History breast cancer Hospitalization History See Above [place] Other reason for referral (narrative)* Diagnostic Procedure Only (Routine) - Pending Review Specialty Diagnoses / Procedures Referred By Contac t Referred To Contact MOLECULAR & FUNCTIONAL IMAGING Diagnoses Malignant neoplasm of breast in female, estrogen receptor positive, unspecified laterality, unspecified site of breast (HCC) Procedures NM BONE WHOLE BODY BONE &/JOINT IMAGING WHOLE BODY Sandeep Lenz MD [address] [place] [address] [address] [place] [address] Molecular & Functional Imaging [address] [place] [address] Referral ID Status Reason Start Date Expiration Date Visits Requested Visits Authorized [id number] Pending Review Auto-Generat ed Referral 04/29/2023 05/28/2024 1 1 [facility] Summary Purpose Family History No Family History [...] 04/30/2023 2:46 PM EDT 650 mg zoledronic bl-tplrvcuj-4.9NaCl 4 mg iv piggyback 100 mL (ZOMETA) [...] MEDICINE OFFICE/OUTPATIENT NEW HIGH MDM 60-74 MINUTES Snadeep Lenz MD [address] [place] [address] [address] [place] [address] Referral ID Status Reason Start Date Expiration Date Visits Requested Visits Authorized [id number] Authorized PCP Requested Referral 05/20/2023 05/19/2024 1 1 Additional Source Comments INFORMATION SOURCE (unrecogn ized section and content) DATE CREATED AUTHOR 01/18/2021 Guilherme Siddiqi [facility] DATE CREATED AUTHOR AUTHOR'S ORGANIZ ATION 01/10/2022 [facility] DATE CREATED AUTHOR AUTHOR'S ORGANIZ ATION 05/15/2022 [facility] DATE CREATED AUTHOR AUTHOR'S ORGANIZ ATION 05/22/2022 [facility] DATE CREATED AUTHOR AUTHOR'S ORGANIZ ATION 09/24/2022 [facility] DATE CREATED AUTHOR AUTHOR'S ORGANIZ ATION 04/01/2023 [facility] DATE CREATED AUTHOR AUTHOR'S ORGANIZ ATION 08/20/2023 [facility] Care Teams (unrecognized sec tion and [...] Eduardo Sharpe MD Primary Care Provider Active Lead Generator Relationship Specialty Start Date End Date Eduardo Sharpe MD [address] [id number] PCP - General Family Practice 05/30/18 Lead Generator Relationship Specialty Start Date End Date Eduardo Sharpe MD [address] [id number] PCP - General Family Practice 05/30/18 Lead Generator Relationship Specialty Start Date End Date Eduardo Sharpe MD [address] [id number] PCP - General Family Medicine 05/30/18 Lead Generator Relationship Specialty Start Date End Date Eduardo Sharpe MD [address] [id number] PCP - General Family Medicine 05/30/18 Lead Generator Relationship Specialty Start Date End Date Eduardo Sharpe MD PCP - General Family Medicine 05/30/18 Lead Generator Relationship Specialty Start Date End Date Eduardo Sharpe MD PCP - General Family Medicine 05/30/18 Lead Generator Relationship Specialty Start Date End Date Eduardo Sharpe MD PCP - General Family Medicine 05/30/18 Lead Generator Relationship Specialty Start Date End Date Eduardo Sharpe MD PCP - General Family Medicine 05/30/18 Lead Generator Relationship Specialty Start Date End Date Eduardo Sharpe MD PCP - General Family Medicine 05/30/18 Lead Generator Relationship Specialty Start Date End Date Eduardo Sharpe MD PCP - General Family Medicine 05/30/18 Lead Generator Relationship Specialty Start Date End Date Eduardo Sharpe MD PCP - General Family Medicine 05/30/18 Lead Generator Relationship Specialty Start Date End Date Eduardo Sharpe MD PCP - General Family Medicine 05/30/18 Source Comments (unrecognize d section and content) In the event this informatio n is protected by the Federal Confidentiality of Alcohol and Drug Abuse Patient Records regulations: The Federal rules restrict any use of the information to criminally investigate or prosecute any alcohol or drug abuse patient.[facility] the event this information is protected by the Federal Confidentiality of Alcohol and Drug Abuse Patient Records regulations: The Federal rules restrict any use of the information to criminally investigate or prosecute any alcohol or drug abuse patient.[facility] the event this information is protected by the Federal Confidentiality of Alcohol and Drug Abuse Patient Records regulations: The Federal rules restrict any use of the information to criminally investigate or prosecute any alcohol or drug abuse patient.[facility] the event this information is protected by the Federal Confidentiality of Alcohol and Drug Abuse Patient Records regulations: The Federal rules restrict any use of the information to criminally investigate or prosecute any alcohol or drug abuse patient.[facility] Hospital[facility] the event this information is protected by the Federal Confidentiality of Alcohol and Drug Abuse Patient Records regulations: The Federal rules restrict any use of the information to criminally investigate or prosecute any alcohol or drug abuse patient.[facility]In the event this information is protected by the Federal Confidentiality of Alcohol and Drug Abuse Patient Records regulations: The Federal rules restrict any use of the information to criminally investigate or prosecute any alcohol or drug abuse patient.[facility]In the event this information is protected by the Federal Confidentiality of Alcohol and Drug Abuse Patient Records regulations: The Federal rules restrict any use of the information to criminally investigate or prosecute any alcohol or drug abuse patient.[facility]In the event this information is protected by the Federal Confidentiality of Alcohol and Drug Abuse Patient Records regulations: The Federal rules restrict any use of the information to criminally investigate or prosecute any alcohol or drug abuse patient.[facility]In the event this information is protected by the Federal Confidentiality of Alcohol and Drug Abuse Patient Records regulations: The Federal rules restrict any use of the information to criminally investigate or prosecute any alcohol or drug abuse patient.[facility]In the event this information is protected by the Federal Confidentiality of Alcohol and Drug Abuse Patient Records regulations: The Federal rules restrict any use of the information to criminally investigate or prosecute any alcohol or drug abuse patient.[facility]In the event this information is protected by the Federal Confidentiality of Alcohol and Drug Abuse Patient Records regulations: The Federal rules restrict any use of the information to criminally investigate or prosecute any alcohol or drug abuse patient.[facility]In the event this information is protected by the Federal Confidentiality of Alcohol and Drug Abuse Patient Records regulations: The Federal rules restrict any use of the information to criminally investigate or prosecute any alcohol or drug abuse patient.[facility] Reason for Visit (unrecogniz ed section and [...] and perimenopausal disorders Hypercalcemia Sandeep Lenz MD [address] [place] [address] [address] [place], [place] [address] [employer] [facility] [address] [place] [address] Referral ID Status Reason Start Date Expiration Date V isits Requested Visits Authorized [id number] Authorized 04/29/2023 07/28/2023 99 99 Reason Comments [...] BE BASED ON THE PRIMARY CLINICAL RECORDS. [facility] [employer] [facility]. provides no warranty or guarantee of the accuracy or completeness of information in this document.
[2023-10-16 11:41] LABS: Alanine Aminotransferase 19 U/L (14-59); Albumin Globulin Ratio 0.7; Albumin Level 3.1 g/dL (3.4-5.0); Alkaline Phosphatase 84 U/L (46-116); Anion Gap 17.7; Aspartate Amino Transferase 18 U/L (15-37); BUN Creatinine Ratio 14.5; Bilirubin Total 0.4 mg/dL (0.2-1.0); Calcium 9.3 mg/dL (8.5-10.1); Carbon Dioxide 25.1 mmol/L (21.0-32.0); Chloride 100 mmol/L (98-107); Estimated GFR (African America 34 (>=60); Estimated GFR (Non-African Ame 28 (>=60); Globulin 4.7 g/dL; Glucose 187 mg/dL (74-106); Potassium 4.8 mmol/L (3.5-5.1); Sodium 138 mmol/L (136-145); Total Protein 7.8 g/dL (6.4-8.2)
== END 2023-10-16 10:33 | disposition home or self-care (01) ==
PROVIDERS: PCP Family Medicine; Visit Provider Family Medicine
DX: I50.9 Heart failure, unspecified (principal)
CPT/HCPCS: 36415; 80053

== ENCOUNTER 2023-10-30 09:16 | Outpatient (OUT) | payer MEDICARE, OTHER, SELFPAY ==
[2023-10-30 10:57] LABS: Anion Gap 16.7; BUN Creatinine Ratio 15.4; Calcium 9.5 mg/dL (8.5-10.1); Carbon Dioxide 25.4 mmol/L (21.0-32.0); Chloride 102 mmol/L (98-107); Estimated GFR (African America 31 (>=60); Estimated GFR (Non-African Ame 26 (>=60); Glucose 164 mg/dL (74-106); Potassium 4.1 mmol/L (3.5-5.1); Sodium 140 mmol/L (136-145)
== END 2023-10-30 09:17 | disposition home or self-care (01) ==
LOC: LAB 09:18
PROVIDERS: PCP Family Medicine; Visit Provider Internal Medicine Interventional Cardiology
DX: I50.32 Chronic diastolic (congestive) heart failure (principal); I50.9 Heart failure, unspecified
CPT/HCPCS: 36415; 80048

== ENCOUNTER 2023-11-13 09:35 | Outpatient (OUT) | payer MEDICARE, OTHER, SELFPAY ==
--- OUTSIDE RECORDS SUMMARY | 2023-11-13 09:44 | XMS_ITS | CCD ---
Author Name Unknown Address [address] [place] [address] Organization [facility] Care Team Providers Care Project Surveyor Name Role Phone MD Eduardo Sharpe Primary Care Provider [phone] MD Radha Echavarriaop Admit Provider MD Radha Echavarriaop Attending Provider [phone] MD Brayden Hernandez Other Provider MD Brayden Hernandez Attending Provider Edaurdo Sharpe MD Primary Care Provider [phone] Brayden Hernandez Unavailable EDUARDO SHARPE Primary Care Unavailable EDUARDO SHARPE Referring Unavailable GANESH HALE Admitting Unavailable GANESH HALE Attending Unavailable Unavailable Primary Care Provider Unavailcharles e PROVIDER, UNKNOWN Attending Unavailable PROVIDER, UNKNOWN Admitting Unavailable Eduardo Sharpe MD Primary Care Provider [phone] MIKALA HIGGINS Admitting Unavailable MIKALA HIGGINS Attending [...] Admitting Unavailable DR EDUARDO SHARPE Attending Unavailable DELL, DR CLARK Primary Care [...] Unavailable DELL, DR CLARK Primary Care Unavailable HOGreg, DR CLARK Primary Care Unavailable [...] Consulting Unavailable DELL, DR CLARK Admitting Unavailable ARNALDO SANCHEZ Consulting Unavailable DELL, DR CLARK Primary Care Unavailable FAWWAD, PARKS H Attending Unavailable FAWWAD, PARKS H Admitting Unavailable DELL, DR CLARK Admitting Unavailable DELL, DR CLARK Consulting Unavailable DELL, DR CLARK Procedure Practitioner Unavailab amaya SHARPE, DR CLARK Attending Unavailable DELL, DR CLARK Primary Care Unavailable DERICK, DR YU Damon Consulting [facility] amaury COLE, DR GRIMALDO Consulting Unavailable ZIEBSTEF, DR KATLYN Aragon Consulting Unavailable SAMSA, KATHI Consulting Unavailable RE MENDOZA Consulting Unavailable JAZMÍN MACHADO Consulting Unavailable ABHYANKAR, SANDEEP Admitting Unavailable ABHYANKAR, SANDEEP Attending Unavailable ZIEBER, DR KATLYN Aragon Consulting Unavailable HOY, DR CLARK Primary Care Unavailable ABHYDANIELLE, SANDEEP Consulting Unavailable LEONAY, DR CLARK Primary Care Unavailable DELL, DR CLARK Attending Unavailable HOY, DR CLARK Admitting Unavailable HOY, DR CLARK Consulting Unavailable LEONAY, DR CLARK Primary Care Unavailable HOY, DR CLARK Attending Unavailable HOY, DR CLARK Admitting Unavailable HOY, DR CLARK Consulting Unavailable HOY, DR CLARK Attending Unavailable HOY, DR CLARK Admitting Unavailable HOY, DR CLARK Primary Care Unavailable HAY, DR DELEON Consulting Unavailable ANGÉLICA BAILEY Consulting Unavailable LEONAY, DR CLARK Primary Care Unavailable SHAIKH Barbara AGUIAR Attending Unavailable SHAIKH AGUIAR H Admitting Unavailable DELL, DR CLARK Primary Care Unavailable LEROY, DR BORRERO Consulting Unavailable LEROY, DR BORRERO Admitting Unavailable LEROY, DR BORRERO Attending Unavailable Eduardo Sharpe MD Primary Care Provider [phone] Bala Hartman Unavailable HOY, EDUARDO M Primary Care Unavailable [...] Unavailable HOY, EDUARDO M Primary Care Unavailable MARK ISABEL Attending Unavailable TRINA HAIDER Referring Unavailable Unavailable Primary Care Provider UnavailGISSELL Conteh Attending Unavailable DAYO GRIFFIN Attending Unavailable GISSELL SANDOVAL Attending Unavailable Allergies Allergy Classification Reported Allergen(s) Allergy Type Date of Onset Reaction(s) Facility (1 source) Gskzplj-ULS-PnP Reductase Inhibitor Propensity to adverse reactions 0 Weakness [facility] (5 sources) HMG-CoA reductase inhibitor; Translations: [TOBMSVP-AQP-NOA REDUCTASE INHIBITORS] Drug Allergy 8 Unknown [facility] (1 source) black walnut pollen extract Drug Allergy 8 [facility] (10 sources) HMG-CoA reductase inhibitor Drug Allergy 8 Unknown [facility] (2 sources) Simvastatin Drug Allergy [facility] Medications Current Medications Medication Drug Class(es) Dates Sig (Normalized) Sig (Original) Accu-Chek Fifi Plus - (2 sources) Accu-Chek Fifi Plus - TEST BLOOD SUGAR ONCE DAILY DX: E11.65 In Vitro for 90 Days Active amLODIPine 5 mg oral tablet (16 sources) Dihydropyridine Calcium Channel Isabel Start: 04-30-2023 take 1 tablet by mouth in the morning amLODIPine (Norvasc) 5 MG tablet Take 1 tablet by mouth in the morning and 1 tablet before bedtime. 0 04/30/2023 Active Start: 12-05-2021 take 2 tablets by mo uth twice daily amLODIPine (NORVASC) 2.5 mg tablet Take 5 mg by mouth twice daily. 0 12/05/2021 Active Start: 11-11-2021 take 1 tablet by mena th once daily amLODIPine (NORVASC) 2.5 mg tablet Take 2.5 mg by mouth once daily. 0 12/05/2021 Active Comment on above: Take 2.5 mg by mouth once daily. Take 5 mg by mouth t wice daily. anastrozole 1 mg oral tablet (19 sources) Aromatase Inhibitor Start: 12-04-2021 End: 05-08-2023 take 1 tablet by mouth once daily anastrozole (Arimidex) 1 MG chemo tablet Take 1 tablet by mouth Daily. 0 05/08/2023 Active Start: 09-10-2020 End: 09-15-2020 take 1 mg by mouth once daily Anastrozole Active 1 MG PO Daily September 15, 2020 5:27pm Comment on above: TAKE 1 TABLET BY MENA TH EVERY DAY bimatoprost 0.1 mg/ml ophthalmic solution (13 sources) Prostaglandin Analog Start: 2 take 0.01 drop(s) into the eye(s) once daily in the evening Bimatoprost (Lumigan) 0.01 % Drops Active 1 DROPS EYE-BOTH Every evening November 09, 2021 7:27pm bimatoprost (LUM IGAN) 0.01 % drop ophthalmic drops 1 Drop as directed. 0 Active Comment on above: 1 Drop as directed. carvedilol 25 mg oral tablet (19 sources) alpha-Adrenergic Isabel, beta-Adrenergic Isabel Start: 11-09-2021 [...] 2020 5:27pm November 09, 2021 8:14pm take 0.5 tablet by out twice daily carvedilol (Coreg) 25 MG tablet Take 0.5 tablets twice a day by oral route for 90 days. 0 Active take 1 tablet by mena th once daily carvedilol (COREG) 25 mg tablet Take 25 mg by mouth as directed. Takes 1 1/2 tablet 2x a day 0 Active Comment on above: Take 25 mg by mouth as directed. Takes 1 1/2 tablet 2x a day doxazosin 4 mg oral tablet (9 sources) alpha-Adrenergic Isabel Start: 04-01-20 End: 03-31-20 take 1 tablet by mouth at bedtime doxazosin (Cardura) 4 MG tablet Take 4 mg by mouth at bedtime 0 04/01/2023 03/31/2024 Active Comment on above: Take 4 mg by mouth d aily at bedtime. ergocalciferol 1.25 mg oral capsule (2 sources) Provitamin D2 Compound Start: 09-10-20 End: 09-15-20 take 1250 ug by mouth every week Ergocalciferol (Vitamin D2) Active 1250 MCG PO every week September 15, 2020 5:27pm Takes every Saturday ferrous sulfate 325 mg oral tablet (9 sources) take 1 tablet by mouth twice daily ferrous sulfate 325 (65 Fe) MG tablet TAKE 1 TABLET BY MOUTH TWICE A DAY for 90 0 Active take 1 tablet by mouth once elaine y ferrous sulfate 325 mg (65 mg iron) tablet Take 325 mg by mouth once daily. 0 Active Comment on above: Take 325 mg by mouth once daily. furosemide 20 mg oral tablet (17 sources) Loop Diuretic Start: 09-22-2020 take 40 mg by mouth once daily Furosemide Active 40 MG PO Daily 60 September 22, 2020 1:09pm See your primary care provider or cardiology for refills Start: 09-10-2020 End: 09-10-2020 Furosemide Discontinued TABL ET September 10, 2020 2:05am September 10, 2020 2:21am Comment on above: Take 40 mg by mouth once daily. ketorolac tromethamine 5 mg/ml ophthalmic solution (1 source) Nonsteroidal Anti-inflammatory Drug, Cyclooxygenase Inhibitor Start: 10-31-19 End: 11-30-19 take 1 drop(s) into the eye(s) in the morning ketorolac (Acular) 0.5 % ophthalmic solution Indications: Age-related nuclear cataract of left eye Administer 1 drop into affected eye(s) in the morning and 1 drop before bedtime. 5 mL 1 10/31/2023 11/30/2023 Active latanoprost 0.05 mg/ml ophthalmic solution (1 source) Prostaglandin Analog latanoprost (Xalatan) 0.005 % ophthalmic solution Ophthalmic for 30 Days 0 Active Multivitamin preparation (1 source) Start: 09-10-20 20 take 1 tablet by mouth once daily Multivitamin Active 1 TAB PO Daily September 10, 2020 1:59am ofloxacin 3 mg/ml ophthalmic solution (1 source) Quinolone Antimicrobial Start: 10-31-19 End: 11-01-19 take 1 drop(s) into the eye(s) five times daily ofloxacin (Ocuflox) 0.3 % ophthalmic solution Indications: Age-related nuclear cataract of left eye Administer 1 drop into the right eye 5 (five) times a day for 1 day Starting 1 day before surgery, continue after surgery as directed 5 mL 1 10/31/2023 11/01/2023 Active 12 hr propafenone hydrochloride 325 mg extended release oral capsule (20 sources) Antiarrhythmic Start: 12-08-19 take 1 capsule by mouth every twelve hours propafenone SR (Rythmol SR) 325 MG 12 hr capsule Take 1 capsule by mouth every 12 (twelve) hours 0 12/07/2022 Active Start: 11-09-2021 take 325 mg by mouth twice daily Propafenone Active 325 MG PO Twice daily November 09, 2021 8:13pm Start: 04-12-2021 take 1 capsule by mo uth every twelve hours, then take 1 capsule [...] 10, 2020 1:30am November 09, 2021 7:27pm [id number] actuat albuterol 0.09 mg/actuat metered dose [...] 10, 2020 1:30am September 19, 2020 1:20pm amoxicillin 875 mg / clavulanate 125 mg oral tablet (2 sources) Penicillin-class Antibacterial Start: 09-10-2020 End: 09-22-2020 take 1 tablet by mouth every twelve hours Amoxicillin-Pot Clavulanate (Augmentin) 875-125 mg Tablet Discontinued 1 TAB PO Q12H 10 5 September 15, 2020 12:42pm September 22, 2020 1:11pm Stop date 09/20/20 aspirin 81 mg oral tablet (10 sources) Platelet Aggregation Inhibitor, Nonsteroidal Anti-inflammatory Drug Start: 09-10-2020 End: 11-09-2021 take 81 mg by mouth once daily Aspirin Discontinued 81 MG PO Daily September 10, 2020 1:47am November 09, 2021 7:27pm take 1 tablet by mouth once elaine y aspirin 81 MG chewable tablet Chew 1 tablet every day by oral route. 0 Active Comment on above: Take 81 mg by mouth once daily. bisacodyl 10 mg rectal suppository (1 source) Stimulant Laxative Start: End: Bisacodyl (Dulcolax (Bisacodyl)) 10 mg Suppository Discontinued 10 MG SD Daily September 10, 2020 1:30am September 19, 2020 1:20pm calcium carbonate 625 mg / cholecalciferol 125 unt oral tablet (10 sources) Vitamin D Start: take 1 tablet by mouth twice daily calcium-cholecalcifer ol, D3, (OSCAL+D 250) 250-125 mg-unit per tablet Indications: Encounter for screening for osteoporosis , Asymptomatic postmenopausal status , Other specified menopausal and perimenopausal disorders , Malignant neoplasm of upper-outer quadrant of left breast in female, estrogen receptor positive (HCC) Take 1 tablet by mouth twice daily. 60 tablet 3 04/20/2021 Active Comment on above: Take 1 tablet by mena twice daily. cetirizine hydrochloride 10 mg oral [...] 20 mg/ml oral solution (1 source) Uncompetitive D-rvycyp-R-aspartate Receptor Antagonist, Sigma-1 Agonist Start: End: take 1 mL by mouth every six hours Dextromethorphan-Guai fenesin (Robitussin Cough-Chest Shadi Dm) 5-100 mg/5 mL Liquid Discontinued 10 ML PO Every 6 hours September 10, 2020 1:30am September 15, 2020 12:43pm dilTIAZem hydrochloride 60 mg oral tablet (1 source) Calcium Channel Isabel Start: End: Diltiazem Hcl Discontinued TABLET September 10, 2020 2:05am September 10, 2020 2:22am ezetimibe 10 mg oral tablet (18 sources) Dietary Cholesterol Absorption Inhibitor Start: End: Ezetimibe Discontinued MG TABLET September 10, 2020 2:05am September 10, 2020 2:19am Start: 09-10-2020 End: 09-15-2020 take 10 mg by mouth once daily Ezetimibe Active 10 MG PO Daily September 15, 2020 5:27pm Comment on above: Take 10 mg by mouth once daily. flecainide acetate [...] 2:05am September 10, 2020 2:21am lactobacillus acidophilus [id number] unt / pectin 10 mg oral capsule (1 source) Start: 09-10-2020 End: 09-19-2020 take 1 capsule by mouth four times daily Acidophilus-Pectin , Russell (Acidophilus Probiotic) 100 million cell-10 mg Capsule [...] 1:20pm metFORMIN hydrochloride 500 mg oral tablet (19 sources) Biguanide Start: 11-11-2021 take 1 tablet [...] Comment on above: Take 1 capsule by [facility] once daily. nitroglycerin 0.4 mg sublingual tablet (1 source) Nitrate Vasodilator Start: 09-10-20 End: 11-09-19 Nitroglycerin Discontinued 0.4 MG SUBLINGUAL Every 5 minutes x 3 doses September 10, 2020 1:28am November 09, 2021 7:27pm omeprazole 40 mg delayed release oral capsule (17 sources) Proton Pump Inhibitor Start: 04-08-20 take [...] September 15, 2020 12:43pm polyethylene glycol 3350 22803 mg powder for oral solution (1 source) Osmotic Laxative Start: 09-10-2020 End: 09-19-2020 Polyethylene Glycol 3350 (Miralax) 17 gram Powder In Packet Discontinued 17 GM PO Daily September 10, 2020 1:30am September 19, 2020 1:20pm potassium chloride 10 meq extended release oral tablet (16 sources) Start: 09-22-2020 potassium chlo ride (K-TAB) [...] 19-7 gram/118 mL Enema Discontinued 118 ML SD Daily September 10, 2020 1:59am September 19, [...] [Unspecified atrial fibrillation] Onset: 05-07-2022 09-13-2020 Chronic Cataract (2 sources) Age-related nuclear cataract of left eye; Translations: [Age-related nuclear cataract, left eye] Onset: 10-31-2023 10-31-2023 Chronic Chronic kidney disease (11 sources) Chronic [...] source) Hypokalemia; Translations: [HYPOKALEMIA] Onset: 07-19-2022 Episodic Glaucoma (2 sources) Primary open angle glaucoma; Translations: [Primary open-angle glaucoma, bilateral, mild stage] Onset: 10-31-2023 10-31-2023 Chronic Heart valve disorders (4 sources) Nonrheumatic mitral [...] Onset: 01-11-2022 Chronic Other aftercare (1 source) 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; Translations: [LONG-TERM USE ORAL HYPOGLYCEMIC DX] Onset: 09-03-2022 Episodic Other aftercare (1 source) Other rn advice (current) drug therapy; Translations: [OTH ULTRASOUND TECH CURRENT DRUG THERAPY] Onset: 09-03-2022 Episodic Other aftercare (1 source) prison (current) use of aspirin; Translations: [ULTRASOUND TECH CURRENT USE OF ASPIRIN] Onset: 09-03-2022 Episodic Other aftercare (1 source) 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) use of anticoagulants; Translations: [ULTRASOUND TECH CURRNT USE ANTICOAGULANTS] Onset: 08-25-2022 Episodic Other [...] sources) Repeated falls; Translations: [Repeated falls] Onset: 10-16-2023 Episodic Other lower respiratory disease (1 source) [...] [Other abnormalities of gait and mobility] Onset: 10-16-2023 Episodic Other nutritional; endocrine; and metabolic disorders [...] Weakness; Translations: [WEAKNESS] Onset: 05-21-2022 Episodic Other diseases of kidney and ureters (2 sources) Disorder of kidney and ureter, unspecified; Translations: [Disorder of kidney and ureter, unspecified] Onset: 04-01-2023 Episodic Other gastrointestinal disorders (1 source) Full [...] Test Name Value Interpretation Reference Range Facility 36on 11-07-2023 36 10/30/2023: MD Odette Parker MA Her kidney function is still the same as it was on 10/16/2023. Did she reduce furosemide to 40 mg every other day? If not she should. If she does not then she should further reduce it to 20 mg every other day and get a repeat BMP in 2 weeks. 11/07/2023: Patient's daughter Rosenda called to make you aware since reducing lasix to 20mg every other day her mother is SOB and retaining fluid. Yesterday she didn't take lasix, but Rosenda said she gave her a whole 40mg this morning. Any recommendations? Please advise. Thanks. [facility] Ophthalmic OCT panelon 10-31 [facility] Right Eye Images reviewed and comparison made to baseline, Images reviewed. To assess optic nerve function and for use in future follow-up. Reliability: good and adequate. Left Eye Images reviewed. To assess optic nerve function and for use in future follow-up. Reliability: poor. Notes Nerve fiber layer (NFL) thinning greatest superior right eye (OD). Consider beginning treatment to this eye as well. Poor scan left eye (OS)> [facility] Study observation (narrative) [facility] Orders Onlyon 10-31-2023 Orders Only [id number] PapoWayne barrientosdomenica Lazara 1945 F Date Provider Department Center 10/31/2023 895-ODETTE FERRARI CARD [facility] Family History Problem Relation Age of Onset Coronary artery disease Mother Coronary artery disease Father Coronary artery disease Sister Coronary artery disease Brother Family Status - Relation Status Age at Mother Father Sister Brother [facility] US Eye+Orbit - bilateralon 0 10-31-2023 Diagnosis: Cataract both eyes (OU) Testing Indication: Performed for preop measurements in the determination of an intraocular lens (IOL) for both eyes (OU) Test Reliability: Good quality both eyes (OU) Interpretation: Good measurements for intraocular lens (IOL) calculation purposes. Calculation made for both eyes (OU). [facility] Study observation (narrative) [facility] Office Visiton 10-16-2023 Follow-up visit [id number] Wayne Barros 1945 F Date Provider Department Center 10/16/2023 GISSELL WANG KASHIF Marie Family History Problem Relation Age of Onset Coronary artery disease Mother Coronary artery disease Father Coronary artery disease Sister Coronary artery disease Brother Family Status - Relation Status Age at Mother Father Sister Brother Level of Service:63617 SD OFFICE/OUTPATIENT ESTABLISHED MOD MDM 30 MIN Normal [facility] CBC W Auto Differential pane l (Bld)on 08-19-2023 Basophils (Bld) [#/Vol] 0.06 10*3/uL Normal <0.11 [facility] Comment on above: Order Comment: Speci men Type: BLOOD SPECIMENOrdering Facility: [facility] Address: [address] [place] [address] Performed By: #### 5 7021-8 ####[facility]CLIA [id number] [place] [address] Basophils/100 WBC (Bld) 0.6 % Normal [facility] Comment on above: Order Comment: Speci men Type: BLOOD SPECIMENOrdering Facility: [facility] Address: [address] [place] [address] Performed By: #### 5 7021-8 ####[facility] [id number] [place] [address] Differential cell count method Nom (Bld) Auto Normal [facility] Comment on above: Order Comment: Speci men Type: BLOOD SPECIMENOrdering Facility: [facility] Address: [address] [place] [address] Performed By: #### 5 7021-8 ####[facility]CL[facility] [id number] [place] [address] Eosinophils (Bld) [#/Vol] 0.16 10*3/uL Normal <0.46 [facility] Comment on above: Order Comment: Speci men Type: BLOOD SPECIMENOrdering Facility: [facility] Address: [address] [place] [address] Performed By: #### 5 7021-8 ####[facility]CL[facility] [id number] [place] [address] Eosinophils/100 WBC (Bld) 1.6 % Normal [facility] Comment on above: Order Comment: Speci men Type: BLOOD SPECIMENOrdering Facility: [facility] Address: [address] [place] [address] Performed By: #### 5 7021-8 ####[facility]CL[facility] [id number] [place] [address] Erythrocyte distribution width (RBC) [Ratio] 12.4 % Normal 11.5-15.0 [facility] Comment on above: Order Comment: Speci men Type: BLOOD SPECIMENOrdering Facility: [facility] Address: [address] [place] [address] Performed By: #### 5 7021-8 ####[facility] [id number] [place] [address] Hematocrit (Bld) [Volume fraction] 39.6 % Normal 36.0-46.0 [facility] Comment on above: Order Comment: Speci men Type: BLOOD SPECIMENOrdering Facility: [facility] Address: [address] [place] [address] Performed By: #### 5 7021-8 ####[facility] [id number] [place] [address] Hemoglobin (Bld) [Mass/Vol] 13.0 g/dL Normal 11.5-15.5 [facility] Comment on above: Order Comment: Speci men Type: BLOOD SPECIMENOrdering Facility: [facility] Address: [address] [place] [address] Performed By: #### 5 7021-8 ####[facility]CL[facility] [id number] [place] [address] Immature granulocytes (Bld) [#/Vol] 0.03 10*3/uL Normal <0.10 [facility] Comment on above: Order Comment: Speci men Type: BLOOD SPECIMENOrdering Facility: [facility] Address: [address] [place] [address] Performed By: #### 5 7021-8 ####[facility]CL[facility] [id number] [place] [address] Immature granulocytes/100 WBC (Bld) 0.3 % Normal [facility] Comment on above: Order Comment: Speci men Type: BLOOD SPECIMENOrdering Facility: [facility] Address: [address] [place] [address] Performed By: #### 5 7021-8 ####[facility] [id number] [place] [address] Lymphocytes (Bld) [#/Vol] 1.62 10*3/uL Normal 1.00-4.00 [facility] Comment on above: Order Comment: Speci men Type: BLOOD SPECIMENOrdering Facility: [facility] Address: [address] [place] [address] Performed By: #### 5 7021-8 ####[facility]CL[facility] [id number] [place] [address] Lymphocytes/100 WBC (Bld) 16.2 % Normal [facility] Comment on above: Order Comment: Speci men Type: BLOOD SPECIMENOrdering Facility: [facility] Address: [address] [place] [address] Performed By: #### 5 7021-8 ####[facility]CL[facility] [id number] [place] [address] MCH (RBC) [Entitic mass] 30.9 pg Normal 26.0-34.0 [facility] Comment on above: Order Comment: Speci men Type: BLOOD SPECIMENOrdering Facility: [facility] Address: [address] [place] [address] Performed By: #### 5 7021-8 ####[facility]CL[facility] [id number] [place] [address] MCHC (RBC) [Mass/Vol] 32.8 g/dL Normal 30.5-36.0 [facility] Comment on above: Order Comment: Speci men Type: BLOOD SPECIMENOrdering Facility: [facility] Address: [address] [place] [address] Performed By: #### 5 7021-8 ####[facility]CLIA [id number] [place] [address] MCV (RBC) [Entitic vol] 94.1 fL Normal 80.0-100.0 [facility] Comment on above: Order Comment: Speci men Type: BLOOD SPECIMENOrdering Facility: [facility] Address: [address] [place] [address] Performed By: #### 5 7021-8 ####[facility]CL[facility] [id number] [place] [address] Monocytes (Bld) [#/Vol] 1.04 10*3/uL High <0.87 [facility] Comment on above: Order Comment: Speci men Type: BLOOD SPECIMENOrdering Facility: [facility] Address: [address] [place] [address] Performed By: #### 5 7021-8 ####[facility]CL[facility] [id number] [place] [address] Monocytes/100 WBC (Bld) 10.4 % Normal [facility] Comment on above: Order Comment: Speci men Type: BLOOD SPECIMENOrdering Facility: [facility] Address: [address] [place] [address] Performed By: #### 5 7021-8 ####[facility]CLIA [id number] [place] [address] Neutrophils (Bld) [#/Vol] 7.12 10*3/uL Normal 1.45-7.50 [facility] Comment on above: Order Comment: Speci men Type: BLOOD SPECIMENOrdering Facility: [facility] Address: [address] [place] [address] Performed By: #### 5 7021-8 ####[facility]CL[facility] [id number] [place] [address] Neutrophils/100 WBC (Bld) 70.9 % Normal [facility] Comment on above: Order Comment: Speci men Type: BLOOD SPECIMENOrdering Facility: [facility] Address: [address] [place] [address] Performed By: #### 5 7021-8 ####[facility]CL[facility] [id number] [place] [address] Nucleated RBC (Bld) [#/Vol] 10*3/uL Normal <0.01 [facility] Comment on above: Order Comment: Speci men Type: BLOOD SPECIMENOrdering Facility: [facility] Address: [address] [place] [address] Performed By: #### 5 7021-8 ####[facility]CL[facility] [id number] [place] [address] Nucleated RBC/100 WBC (Bld) [Ratio] 0.0 /100 WBC Normal [facility] Comment on above: Order Comment: Speci men Type: BLOOD SPECIMENOrdering Facility: [facility] Address: [address] [place] [address] Performed By: #### 5 7021-8 ####[facility]CL[facility] [id number] [place] [address] Platelet mean volume (Bld) [Entitic vol] 10.7 fL Normal 9.0-12.7 [facility] Comment on above: Order Comment: Speci men Type: BLOOD SPECIMENOrdering Facility: [facility] Address: [address] [place] [address] Performed By: #### 5 7021-8 ####[facility] LABCLIA [id number] [place] [address] Platelets (Bld) [#/Vol] 252 10*3/uL Normal 150-400 [facility] Comment on above: Order Comment: Speci men Type: BLOOD SPECIMENOrdering Facility: [facility] Address: [address] [place] [address] Performed By: #### 5 7021-8 ####[facility] LABIA [id number] [place] [address] RBC (Bld) [#/Vol] 4.21 10*6/uL Normal 3.90-5.20 [facility] Comment on above: Order Comment: Speci men Type: BLOOD SPECIMENOrdering Facility: [facility] Address: [address] [place], [place] [address] Performed By: #### 5 7021-8 ####[facility] LABIA [id number] [place] [address] WBC (Bld) [#/Vol] 10.03 10*3/uL Normal 3.70-11.00 [facility] Comment on above: Order Comment: Speci men Type: BLOOD SPECIMENOrdering Facility: [facility] Address: [address] [place], [place] [address] Performed By: #### 5 7021-8 ####[facility] [id number] [place] [address] CNOVSPon 08-19-2023 CNOVS Visit (SP) Office ([facility]) -- ANDREW BARROS ([id number]) 1945 F Date Time Provider Department 08/19/23 1:00 PM SANDEEP LENZ During your visit today, we recorded the following information about you: Temperature Pulse Respiration Blood pressure 97.7 degrees 67/minute 16/minute 148/65 Weight Height 61.8 kg 1.626 m Sandeep Lenz MD 08/20/2023 7:07 AM Signed Kathy nephrology NAME: Andrew Barros CLINIC NO.: [id number] DATE OF SERVICE: August 19, 2023 (Eduardo) [...] outer quadrant, invasive ductal carcinoma, ER postive, SD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 Mammograms at [facility] on 01/04/2021 Bi-Rads 2 benign. REVIEW [...] comfortably. N (more content not included)... [facility] -- ANDREW BARROS ([id number]) 1945 F Date Time Provider Department 08/19/23 CLEMENTE SRIVASTAVA During your visit today, we recorded the following information about you: Clemente Srivastava RN 08/19/2023 2:47 PM Signed ----- Message from Sandeep Lenz MD sent at 08/19/2023 2:33 PM EST ----- Calcium janki normal. Kidney function is stable Clemente Srivastava RN 08/19/2023 2:47 PM Signed Pt aware of Orlando's message. She denies any additional questions, needs or concerns at this time. Clemente Srivastava RN Allergies As of Date: 08/19/2023 Noted Allergy Reaction [id number]-[id number]-QCS REDUCTASE INHIBIT*01/21/2018 16 - Unknown Comments: Other reaction(s): AOF Date Reviewed: 08/19/2023 Reviewed by: Joselo December - Fully Assessed Reason for Visit: Results [...] Status:Closed by CLEMENTE SRIVASTAVA on 08/19/23 Normal [facility] Calcium.ionized [Moles/Vol]o n 08-19-2023 Calcium.ionized (Bld) [Mass/Vol] 1.20 mmol/L Normal 1.08-1.30 [facility] Comment on above: Order Comment: Speci men Type: BLOOD SPECIMENOrdering Facility: [facility] Address: [address] [place] [address] Performed By: #### 1 995-0 ####[facility] LABCLIA [id number] [place] [address] [place] Calcium.ionized adjusted to pH 7.4 (Bld) [Moles/Vol] 1.19 mmol/L Normal 1.08-1.30 [facility] Comment on above: Order Comment: Speci men Type: BLOOD SPECIMENOrdering Facility: [facility] Address: [address] [place] [address] Performed By: #### 1 995-0 ####[facility] LABCLIA [id number] [place] [address] [place] Comprehensive metabolic 2000 panelon 08-19-2023 Albumin [Mass/Vol] 4.4 g/dL Normal 3.9-4.9 [facility] Comment on above: Order Comment: Speci men Type: BLOOD SPECIMENOrdering Facility: [facility] Address: [address] [place] [address] Performed By: #### 2 4323-8 ####[facility] LABCLIA [id number] [place] [address] ALP [Catalytic activity/Vol] 88 U/L Normal 34-123 [facility] Comment on above: Order Comment: Speci men Type: BLOOD SPECIMENOrdering Facility: [facility] Address: [address] [place] [address] Performed By: #### 2 4323-8 ####[facility] LABCLIA [id number] [place] [address] ALT [Catalytic activity/Vol] 8 U/L Normal 7-38 [facility] Comment on above: Order Comment: Speci men Type: BLOOD SPECIMENOrdering Facility: [facility] Address: [address] [place] [address] Performed By: #### 2 4323-8 ####[facility] LABCLIA [id number] [place] [address] Anion gap [Moles/Vol] 11 mmol/L Normal 9-18 [facility] Comment on above: Order Comment: Speci men Type: BLOOD SPECIMENOrdering Facility: [facility] Address: [address] [place] [address] Performed By: #### 2 4323-8 ####[facility] LABCLIA [id number] [place] [address] AST [Catalytic activity/Vol] 13 U/L Normal 13-35 [facility] Comment on above: Order Comment: Speci men Type: BLOOD SPECIMENOrdering Facility: [facility] Address: [address] [place] [address] Performed By: #### 2 4323-8 ####[facility] LABCLIA [id number] [place] [address] Bilirubin [Mass/Vol] 0.3 mg/dL Normal 0.2-1.3 [facility] Comment on above: Order Comment: Speci men Type: BLOOD SPECIMENOrdering Facility: [facility] Address: [address] [place] [address] Performed By: #### 2 4323-8 ####[facility] LABCLIA [id number] [place] [address] Calcium [Mass/Vol] 9.6 mg/dL Normal 8.5-10.2 [facility] Comment on above: Order Comment: Speci men Type: BLOOD SPECIMENOrdering Facility: [facility] Address: [address] [place] [address] Performed By: #### 2 4323-8 ####[facility] LABCLIA [id number] [place] [address] Chloride [Moles/Vol] 98 mmol/L Normal 97-105 [facility] Comment on above: Order Comment: Speci men Type: BLOOD SPECIMENOrdering Facility: [facility] Address: [address] [place] [address] Performed By: #### 2 4323-8 ####[facility] LABCLIA [id number] [place] [address] CO2 [Moles/Vol] 30 mmol/L Normal 22-30 [facility] Comment on above: Order Comment: Speci men Type: BLOOD SPECIMENOrdering Facility: [facility] Address: [address] [place] [address] Performed By: #### 2 4323-8 ####[facility] LABCLIA [id number] [place] [address] Creatinine [Mass/Vol] 1.27 mg/dL High 0.58-0.96 [facility] Comment on above: Order Comment: Speci men Type: BLOOD SPECIMENOrdering Facility: [facility] Address: [address] [place] [address] Performed By: #### 2 4323-8 ####[facility] LABCLIA [id number] [place] [address] Creatinine and Glomerular filtration rate.predicted panel (S/P/Bld) 43 mL/min/1.73m??? Low >=60 [facility] Comment on above: Order Comment: Speci men Type: BLOOD SPECIMENOrdering Facility: [facility] Address: [address] [place] [address] Result Comment: Sugar mated Glomerular Filtration Rate [...] actual GFR. Performed By: #### 2 4323-8 ####[facility] LABCLIA [id number] [place] [address] Glucose [Mass/Vol] 94 mg/dL Normal 74-99 [facility] Comment on above: Order Comment: Speci men Type: BLOOD SPECIMENOrdering Facility: [facility] Address: [address] [place] [address] Result Comment: The [place] Diabetes Association (ADA) provides guidance for cutoff [...] Standards of Medical Care in Diabetes 2016, [place] [employer]. Diabetes Care. 2016.39(Suppl 1). Performed By: #### 2 4323-8 ####[facility] LABCLIA [id number] [place] [address] Potassium [Moles/Vol] 3.7 mmol/L Normal 3.7-5.1 [facility] Comment on above: Order Comment: Speci men Type: BLOOD SPECIMENOrdering Facility: [facility] Address: [address] [place] [address] Performed By: #### 2 4323-8 ####[facility] LABCLIA [id number] [place] [address] Protein [Mass/Vol] 7.3 g/dL Normal 6.3-8.0 [facility] Comment on above: Order Comment: Speci men Type: BLOOD SPECIMENOrdering Facility: [facility] Address: [address] [place] [address] Performed By: #### 2 4323-8 ####[facility] LABCLIA [id number] [place] [address] Sodium [Moles/Vol] 139 mmol/L Normal 136-144 [facility] Comment on above: Order Comment: Speci men Type: BLOOD SPECIMENOrdering Facility: [facility] Address: [address] [place] [address] Performed By: #### 2 4323-8 ####[facility] LABCLIA [id number] [place] [address] Urea nitrogen [Mass/Vol] 28 mg/dL High 7-21 [facility] Comment on above: Order Comment: Speci men Type: BLOOD SPECIMENOrdering Facility: [facility] Address: [address] [place] [address] Performed By: #### 2 4323-8 ####[facility] LABCLIA [id number] [place] [address] CBC W Auto Differential pane l (Bld)on 07-02-2023 Basophils (Bld) [#/Vol] 0.06 10*3/uL Normal <0.11 [facility] Comment on above: Order Comment: Speci men Type: BLOOD SPECIMENOrdering Facility: [facility] Address: [address] [place] [address] Performed By: #### 5 7021-8 ####[facility] LABCLIA [id number] [place] [address] Basophils/100 WBC (Bld) 0.6 % Normal [facility] Comment on above: Order Comment: Speci men Type: BLOOD SPECIMENOrdering Facility: [facility] Address: [address] [place] [address] Performed By: #### 5 7021-8 ####[facility] LABCLIA [id number] [place] [address] Differential cell count method Nom (Bld) Auto Normal [facility] Comment on above: Order Comment: Speci men Type: BLOOD SPECIMENOrdering Facility: [facility] Address: [address] [place] [address] Performed By: #### 5 7021-8 ####[facility] LABCLIA [id number] [place] [address] Eosinophils (Bld) [#/Vol] 0.14 10*3/uL Normal <0.46 [facility] Comment on above: Order Comment: Speci men Type: BLOOD SPECIMENOrdering Facility: [facility] Address: [address] [place] [address] Performed By: #### 5 7021-8 ####[facility] LABCLIA [id number] [place] [address] Eosinophils/100 WBC (Bld) 1.5 % Normal [facility] Comment on above: Order Comment: Speci men Type: BLOOD SPECIMENOrdering Facility: [facility] Address: [address] [place] [address] Performed By: #### 5 7021-8 ####[facility] LABCLIA [id number] [place] [address] Erythrocyte distribution width (RBC) [Ratio] 12.5 % Normal 11.5-15.0 [facility] Comment on above: Order Comment: Speci men Type: BLOOD SPECIMENOrdering Facility: [facility] Address: [address] [place] [address] Performed By: #### 5 7021-8 ####[facility] LABCLIA [id number] [place] [address] Hematocrit (Bld) [Volume fraction] 40.6 % Normal 36.0-46.0 [facility] Comment on above: Order Comment: Speci men Type: BLOOD SPECIMENOrdering Facility: [facility] Address: [address] [place] [address] Performed By: #### 5 7021-8 ####[facility] LABCLIA [id number] [place] [address] Hemoglobin (Bld) [Mass/Vol] 13.1 g/dL Normal 11.5-15.5 [facility] Comment on above: Order Comment: Speci men Type: BLOOD SPECIMENOrdering Facility: [facility] Address: [address] [place] [address] Performed By: #### 5 7021-8 ####[facility] LABCLIA [id number] [place] [address] Immature granulocytes (Bld) [#/Vol] 0.03 10*3/uL Normal <0.10 [facility] Comment on above: Order Comment: Speci men Type: BLOOD SPECIMENOrdering Facility: [facility] Address: [address] [place] [address] Performed By: #### 5 7021-8 ####[facility] LABCLIA [id number] [place] [address] Immature granulocytes/100 WBC (Bld) 0.3 % Normal [facility] Comment on above: Order Comment: Speci men Type: BLOOD SPECIMENOrdering Facility: [facility] Address: [address] [place] [address] Performed By: #### 5 7021-8 ####[facility] LABCLIA [id number] [place] [address] Lymphocytes (Bld) [#/Vol] 1.44 10*3/uL Normal 1.00-4.00 [facility] Comment on above: Order Comment: Speci men Type: BLOOD SPECIMENOrdering Facility: [facility] Address: [address] [place] [address] Performed By: #### 5 7021-8 ####[facility] LABCLIA [id number] [place] [address] Lymphocytes/100 WBC (Bld) 15.2 % Normal [facility] Comment on above: Order Comment: Speci men Type: BLOOD SPECIMENOrdering Facility: [facility] Address: [address] [place] [address] Performed By: #### 5 7021-8 ####[facility] LABCLIA [id number] [place] [address] MCH (RBC) [Entitic mass] 31.2 pg Normal 26.0-34.0 [facility] Comment on above: Order Comment: Speci men Type: BLOOD SPECIMENOrdering Facility: [facility] Address: [address] [place] [address] Performed By: #### 5 7021-8 ####[facility] LABCLIA [id number] [place] [address] MCHC (RBC) [Mass/Vol] 32.3 g/dL Normal 30.5-36.0 [facility] Comment on above: Order Comment: Speci men Type: BLOOD SPECIMENOrdering Facility: [facility] Address: [address] [place] [address] Performed By: #### 5 7021-8 ####[facility] LABCLIA [id number] [place] [address] MCV (RBC) [Entitic vol] 96.7 fL Normal 80.0-100.0 [facility] Comment on above: Order Comment: Speci men Type: BLOOD SPECIMENOrdering Facility: [facility] Address: [address] [place] [address] Performed By: #### 5 7021-8 ####[facility] LABCLIA [id number] [place] [address] Monocytes (Bld) [#/Vol] 0.82 10*3/uL Normal <0.87 [facility] Comment on above: Order Comment: Speci men Type: BLOOD SPECIMENOrdering Facility: [facility] Address: [address] [place] [address] Performed By: #### 5 7021-8 ####[facility] LABCLIA [id number] [place] [address] Monocytes/100 WBC (Bld) 8.7 % Normal [facility] Comment on above: Order Comment: Speci men Type: BLOOD SPECIMENOrdering Facility: [facility] Address: [address] [place] [address] Performed By: #### 5 7021-8 ####[facility] LABCLIA [id number] [place] [address] Neutrophils (Bld) [#/Vol] 6.97 10*3/uL Normal 1.45-7.50 [facility] Comment on above: Order Comment: Speci men Type: BLOOD SPECIMENOrdering Facility: [facility] Address: [address] [place] [address] Performed By: #### 5 7021-8 ####[facility] LABCLIA [id number] [place] [address] Neutrophils/100 WBC (Bld) 73.7 % Normal [facility] Comment on above: Order Comment: Speci men Type: BLOOD SPECIMENOrdering Facility: [facility] Address: [address] [place] [address] Performed By: #### 5 7021-8 ####[facility] LABCLIA [id number] [place] [address] Nucleated RBC (Bld) [#/Vol] 10*3/uL Normal <0.01 [facility] Comment on above: Order Comment: Speci men Type: BLOOD SPECIMENOrdering Facility: [facility] Address: [address] [place] [address] Performed By: #### 5 7021-8 ####[facility] LABCLIA [id number] [place] [address] Nucleated RBC/100 WBC (Bld) [Ratio] 0.0 /100 WBC Normal [facility] Comment on above: Order Comment: Speci men Type: BLOOD SPECIMENOrdering Facility: [facility] Address: [address] [place] [address] Performed By: #### 5 7021-8 ####[facility] LABCLIA [id number] [place] [address] Platelet mean volume (Bld) [Entitic vol] 11.0 fL Normal 9.0-12.7 [facility] Comment on above: Order Comment: Speci men Type: BLOOD SPECIMENOrdering Facility: [facility] Address: [address] [place] [address] Performed By: #### 5 7021-8 ####[facility] LABCLIA [id number] [place] [address] Platelets (Bld) [#/Vol] 238 10*3/uL Normal 150-400 [facility] Comment on above: Order Comment: Speci men Type: BLOOD SPECIMENOrdering Facility: [facility] Address: [address] [place] [address] Performed By: #### 5 7021-8 ####[facility] LABCLIA [id number] [place] [address] RBC (Bld) [#/Vol] 4.20 10*6/uL Normal 3.90-5.20 [facility] Comment on above: Order Comment: Speci men Type: BLOOD SPECIMENOrdering Facility: [facility] Address: [address] [place] [address] Performed By: #### 5 7021-8 ####[facility] LABCLIA [id number] [place] [address] WBC (Bld) [#/Vol] 9.46 10*3/uL Normal 3.70-11.00 [facility] Comment on above: Order Comment: Speci men Type: BLOOD SPECIMENOrdering Facility: [facility] Address: [address] [place] [address] Performed By: #### 5 7021-8 ####[facility] LABCLIA [id number] [place] [address] Calcium.ionized [Moles/Vol]o n 07-02-2023 Calcium.ionized (Bld) [Mass/Vol] 1.23 mmol/L Normal 1.08-1.30 [facility] Comment on above: Order Comment: Speci men Type: BLOOD SPECIMEN [facility] Address: [address] [place] [address] Performed By: #### 1 995-0 #### [facility] CLIA [id number] [facility] [address] [id number] [address] [place] Calcium.ionized adjusted to pH 7.4 (Bld) [Moles/Vol] 1.20 mmol/L Normal 1.08-1.30 [facility] Comment on above: Order Comment: Speci men Type: BLOOD SPECIMEN [facility] Address: [address] [place] [address] Performed By: #### 1 995-0 #### [facility] CLIA [id number] [address] [facility] [address] [id number], [place] [address] [facility] Comprehensive metabolic 2000 panelon 07-02-2023 Albumin [Mass/Vol] 4.5 g/dL Normal 3.9-4.9 [facility] Comment on above: Order Comment: Speci men Type: BLOOD SPECIMENOrdering Facility: [facility] Address: [address] [place] [address] Performed By: #### 2 4323-8 ####[facility] LABCLIA [id number] [place] [address] ALP [Catalytic activity/Vol] 89 U/L Normal 34-123 [facility] Comment on above: Order Comment: Speci men Type: BLOOD SPECIMENOrdering Facility: [facility] Address: [address] [place] [address] Performed By: #### 2 4323-8 ####[facility] LABCLIA [id number] [place] [address] ALT [Catalytic activity/Vol] 10 U/L Normal 7-38 [facility] Comment on above: Order Comment: Speci men Type: BLOOD SPECIMENOrdering Facility: [facility] Address: [address] [place] [address] Performed By: #### 2 4323-8 ####[facility] LABCLIA [id number] [place] [address] Anion gap [Moles/Vol] 15 mmol/L Normal 9-18 [facility] Comment on above: Order Comment: Speci men Type: BLOOD SPECIMENOrdering Facility: [facility] Address: [address] [place] [address] Performed By: #### 2 4323-8 ####[facility] LABCLIA [id number] [place] [address] AST [Catalytic activity/Vol] 14 U/L Normal 13-35 [facility] Comment on above: Order Comment: Speci men Type: BLOOD SPECIMENOrdering Facility: [facility] Address: [address] [place] [address] Performed By: #### 2 4323-8 ####[facility] LABCLIA [id number] [place] [address] Bilirubin [Mass/Vol] 0.4 mg/dL Normal 0.2-1.3 [facility] Comment on above: Order Comment: Speci men Type: BLOOD SPECIMENOrdering Facility: [facility] Address: [address] [place] [address] Performed By: #### 2 4323-8 ####[facility] LABCLIA [id number] [place] [address] Calcium [Mass/Vol] 9.9 mg/dL Normal 8.5-10.2 [facility] Comment on above: Order Comment: Speci men Type: BLOOD SPECIMENOrdering Facility: [facility] Address: [address] [place] [address] Performed By: #### 2 4323-8 ####[facility] LABCLIA [id number] [place] [address] Chloride [Moles/Vol] 99 mmol/L Normal 97-105 [facility] Comment on above: Order Comment: Speci men Type: BLOOD SPECIMENOrdering Facility: [facility] Address: [address] [place] [address] Performed By: #### 2 4323-8 ####[facility] LABCLIA [id number] [place] [address] CO2 [Moles/Vol] 28 mmol/L Normal 22-30 [facility] Comment on above: Order Comment: Speci men Type: BLOOD SPECIMENOrdering Facility: [facility] Address: [address] [place] [address] Performed By: #### 2 4323-8 ####[facility] LABCLIA [id number] [place] [address] Creatinine [Mass/Vol] 1.31 mg/dL High 0.58-0.96 [facility] Comment on above: Order Comment: Anastacio bonilla Type: BLOOD SPECIMENOrdering Facility: [facility] Address: [address] [place] [address] Performed By: #### 2 4323-8 ####[facility] LABCLIA [id number] [place] [address] Creatinine and Glomerular filtration rate.predicted panel (S/P/Bld) 42 mL/min/1.73m??? Low >=60 [facility] Comment on above: Order Comment: Anastacio men Type: BLOOD SPECIMENOrdering Facility: [facility] Address: [address] [place] [address] Result Comment: Sugar mated Glomerular Filtration Rate [...] actual GFR. Performed By: #### 2 4323-8 ####[facility] LABCLIA [id number] [place] [address] Glucose [Mass/Vol] 183 mg/dL High 74-99 [facility] Comment on above: Order Comment: Speci men Type: BLOOD SPECIMENOrdering Facility: [facility] Address: [address] [place] [address] Result Comment: The [place] Diabetes [employer] (ADA) provides guidance for cutoff [...] Standards of Medical Care in Diabetes 2016, [place] [employer]. Diabetes Care. 2016.39(Suppl 1). Performed By: #### 2 4323-8 ####[facility] LABCLIA [id number] [place] [address] Potassium [Moles/Vol] 3.9 mmol/L Normal 3.7-5.1 [facility] Comment on above: Order Comment: Speci men Type: BLOOD SPECIMENOrdering Facility: [facility] Address: [address] [place] [address] Performed By: #### 2 4323-8 ####[facility] LABCLIA [id number] [place] [address] Protein [Mass/Vol] 7.2 g/dL Normal 6.3-8.0 [facility] Comment on above: Order Comment: Speci men Type: BLOOD SPECIMENOrdering Facility: [facility] Address: [address] [place] [address] Performed By: #### 2 4323-8 ####[facility] LABCLIA [id number] [place] [address] Sodium [Moles/Vol] 142 mmol/L Normal 136-144 [facility] Comment on above: Order Comment: Speci men Type: BLOOD SPECIMENOrdering Facility: [facility] Address: [address] [place] [address] Performed By: #### 2 4323-8 ####[facility] LABCLIA [id number] [place] [address] Urea nitrogen [Mass/Vol] 29 mg/dL High 7-21 [facility] Comment on above: Order Comment: Speci men Type: BLOOD SPECIMENOrdering Facility: [facility] Address: [address] [place] [address] Performed By: #### 2 4323-8 ####[facility] LABCLIA [id number] [place] [address] CBC W Auto Differential pane l (Bld)on 05-21-2023 Basophils (Bld) [#/Vol] 0.07 10*3/uL <0.11 k/uL [facility] Basophils/100 WBC (Bld) 0.6 % [facility] Differential cell count method Nom (Bld) [facility]osin[facility] (Bld) [#/Vol] 0.17 10*3/uL <0.46 k/uL [facility] Eosinophils/100 WBC (Bld) 1.6 % [facility] [facility] Erythrocyte distribution width (RBC) [Ratio] 12.8 % 11.5 - 15.0 % [facility] Hematocrit (Bld) [Volume fraction] 38.7 % 36.0 - 46.0 % [facility] Hemoglobin (Bld) [Mass/Vol] 13.0 g/dL 11.5 - 15.5 g/dL [facility] Immature granulocytes (Bld) [#/Vol] 0.04 10*3/uL <0.10 k/uL [facility] Immature granulocytes/100 WBC (Bld) 0.4 % [facility] Lymphocytes (Bld) [#/Vol] 1.74 10*3/uL 1.00 - 4.00 k/uL [facility] Lymphocytes/100 WBC (Bld) 16.0 % [facility] MCH (RBC) [Entitic mass] 31.7 pg 26.0 - 34.0 pg [facility] MCHC (RBC) [Mass/Vol] 33.6 g/dL 30.5 - 36.0 g/dL [facility] MCV (RBC) [Entitic vol] 94.4 fL 80.0 - 100.0 fL [facility] Monocytes (Bld) [#/Vol] 0.94 10*3/uL High <0.87 k/uL [facility] Monocytes/100 WBC (Bld) 8.6 % [facility] Neutrophils (Bld) [#/Vol] 7.94 10*3/uL High 1.45 - 7.50 k/uL [facility] Neutrophils/100 WBC (Bld) 72.8 % [facility] Nucleated RBC (Bld) [#/Vol] <0.01 k/uL [facility] Nucleated RBC/100 WBC (Bld) [Ratio] 0.0 /100 WBC [facility] Platelet mean volume (Bld) [Entitic vol] 12.1 fL 9.0 - 12.7 fL [facility] Platelets (Bld) [#/Vol] 293 10*3/uL 150 - 400 k/uL [facility] RBC (Bld) [#/Vol] 4.10 10*6/uL 3.90 - 5.2 0 m/uL [facility] WBC (Bld) [#/Vol] 10.90 10*3/uL 3.70 - 11.00 k/uL [facility] CNPNon 05-21-2023 CNPN Telephone ([facility]) -- NADREW BARROS ([id number]) 1945 F Date Time Provider Department 05/21/23 [...] As of Date: 05/21/2023 Noted Allergy Reaction [id number] REDUCTASE INHIBIT*01/21/2018 16 - Unknown Comments: Other [...] Status:Closed by CLEMENTE SRIVASTAVA on 05/21/23 Normal [facility] metabolic 2000 panelon 05-21-2023 Albumin [Mass/Vol] 4.6 g/dL 3.9 - 4.9 g/dL [facility] ALP [Catalytic activity/Vol] 96 U/L 34 - 123 U/L [facility] ALT [Catalytic activity/Vol] 13 U/L 7 - 38 U/L [facility] Anion gap [Moles/Vol] 13 mmol/L 9 - 18 mmol/L [facility] AST [Catalytic activity/Vol] 18 U/L 13 - 35 U/L [facility] Bilirubin [Mass/Vol] 0.3 mg/dL 0.2 - 1 .3 mg/dL [facility] Calcium [Mass/Vol] 10.0 mg/dL 8.5 - 10. 2 mg/dL [facility] Chloride [Moles/Vol] 101 mmol/L 97 - 10 5 mmol/L [facility] CO2 [Moles/Vol] 26 mmol/L 22 - 30 mmol/L [facility] Creatinine [Mass/Vol] 1.32 mg/dL High 0.58 - 0.96 mg/dL [facility] Estimated Glomerular Filtration Rate 41 mL/min/1.73m Low >=60 mL/min/1.73 m [facility] Glucose [Mass/Vol] 119 mg/dL High 74 - 99 mg/dL [facility] Potassium [Moles/Vol] 4.1 mmol/L 3.7 - 5.1 mmol/L [facility] Protein [Mass/Vol] 7.6 g/dL 6.3 - 8.0 g/dL [facility] Sodium [Moles/Vol] 140 mmol/L 136 - 144 mmol/L [facility] Urea nitrogen [Mass/Vol] 32 mg/dL High 7 - 21 mg/dL [facility] CBC W Auto Differential pane l (Bld)on 05-20-2023 Basophils (Bld) [#/Vol] 0.07 10*3/uL Normal <0.11 [facility] Comment on above: Order Comment: Speci men Type: BLOOD SPECIMENOrdering Facility: [facility] Address: [address] [address] Performed By: #### 5 7021-8 ####[facility] LABCLIA [id number] [place] [address] Basophils/100 WBC (Bld) 0.6 % Normal [facility] Comment on above: Order Comment: Speci men Type: BLOOD SPECIMENOrdering Facility: [facility] Address: [address] [address] Performed By: #### 5 7021-8 ####[facility] LABCLIA [id number] [place] [address] Differential cell count method Nom (Bld) Auto Normal [facility] Comment on above: Order Comment: Speci men Type: BLOOD SPECIMENOrdering Facility: [facility] Address: [address] [place] [address] Performed By: #### 5 7021-8 ####[facility] LABCLIA [id number] [place] [address] Eosinophils (Bld) [#/Vol] 0.17 10*3/uL Normal <0.46 [facility] Comment on above: Order Comment: Speci men Type: BLOOD SPECIMENOrdering Facility: [facility] Address: [address] [place] [address] Performed By: #### 5 7021-8 ####[facility] LABCLIA [id number] [place] [address] Eosinophils/100 WBC (Bld) 1.6 % Normal [facility] Comment on above: Order Comment: Speci men Type: BLOOD SPECIMENOrdering Facility: [facility] Address: [address] [place] [address] Performed By: #### 5 7021-8 ####[facility] LABCLIA [id number] [place] [address] Erythrocyte distribution width (RBC) [Ratio] 12.8 % Normal 11.5-15.0 [facility] Comment on above: Order Comment: Speci men Type: BLOOD SPECIMENOrdering Facility: [facility] Address: [address] [place] [address] Performed By: #### 5 7021-8 ####[facility] LABCLIA [id number] [place] [address] Hematocrit (Bld) [Volume fraction] 38.7 % Normal 36.0-46.0 [facility] Comment on above: Order Comment: Speci men Type: BLOOD SPECIMENOrdering Facility: [facility] Address: [address] [place] [address] Performed By: #### 5 7021-8 ####[facility] LABCLIA [id number] [place] [address] Hemoglobin (Bld) [Mass/Vol] 13.0 g/dL Normal 11.5-15.5 [facility] Comment on above: Order Comment: Speci men Type: BLOOD SPECIMENOrdering Facility: [facility] Address: [address] [place] [address] Performed By: #### 5 7021-8 ####[facility] LABCLIA [id number] [place] [address] Immature granulocytes (Bld) [#/Vol] 0.04 10*3/uL Normal <0.10 [facility] Comment on above: Order Comment: Speci men Type: BLOOD SPECIMENOrdering Facility: [facility] Address: [address] [place] [address] Performed By: #### 5 7021-8 ####[facility] LABIA [id number] [place] [address] Immature granulocytes/100 WBC (Bld) 0.4 % Normal [facility] Comment on above: Order Comment: Speci men Type: BLOOD SPECIMENOrdering Facility: [facility] Address: [address] [place] [address] Performed By: #### 5 7021-8 ####[facility] LABCLIA [id number] [place] [address] Lymphocytes (Bld) [#/Vol] 1.74 10*3/uL Normal 1.00-4.00 [facility] Comment on above: Order Comment: Speci men Type: BLOOD SPECIMENOrdering Facility: [facility] Address: [address] [place] [address] Performed By: #### 5 7021-8 ####[facility] LABCLIA [id number] [place] [address] Lymphocytes/100 WBC (Bld) 16.0 % Normal [facility] Comment on above: Order Comment: Speci men Type: BLOOD SPECIMENOrdering Facility: [facility] Address: [address] [place] [address] Performed By: #### 5 7021-8 ####[facility] LABCLIA [id number] [place] [address] MCH (RBC) [Entitic mass] 31.7 pg Normal 26.0-34.0 [facility] Comment on above: Order Comment: Speci men Type: BLOOD SPECIMENOrdering Facility: [facility] Address: [address] [place] [address] Performed By: #### 5 7021-8 ####[facility] LABIA [id number] [place] [address] MCHC (RBC) [Mass/Vol] 33.6 g/dL Normal 30.5-36.0 [facility] Comment on above: Order Comment: Speci men Type: BLOOD SPECIMENOrdering Facility: [facility] Address: [address] [place] [address] Performed By: #### 5 7021-8 ####[facility] LABIA [id number] [place] [address] MCV (RBC) [Entitic vol] 94.4 fL Normal 80.0-100.0 [facility] Comment on above: Order Comment: Speci men Type: BLOOD SPECIMENOrdering Facility: [facility] Address: [address] [place] [address] Performed By: #### 5 7021-8 ####[facility] LABIA [id number] [place] [address] Monocytes (Bld) [#/Vol] 0.94 10*3/uL High <0.87 [facility] Comment on above: Order Comment: Speci men Type: BLOOD SPECIMENOrdering Facility: [facility] Address: [address] [address] Performed By: #### 5 7021-8 ####[facility] LABCLIA [id number] [place] [address] Monocytes/100 WBC (Bld) 8.6 % Normal [facility] Comment on above: Order Comment: Speci men Type: BLOOD SPECIMENOrdering Facility: [facility] Address: [address] [place] [address] Performed By: #### 5 7021-8 ####[facility] LABCLIA [id number] [place] [address] Neutrophils (Bld) [#/Vol] 7.94 10*3/uL High 1.45-7.50 [facility] Comment on above: Order Comment: Speci men Type: BLOOD SPECIMENOrdering Facility: [facility] Address: [address] [place] [address] Performed By: #### 5 7021-8 ####[facility] LABCLIA [id number] [place] [address] Neutrophils/100 WBC (Bld) 72.8 % Normal [facility] Comment on above: Order Comment: Speci men Type: BLOOD SPECIMENOrdering Facility: [facility] Address: [address] [place] [address] Performed By: #### 5 7021-8 ####[facility] LABCLIA [id number] [place] [address] Nucleated RBC (Bld) [#/Vol] 10*3/uL Normal <0.01 [facility] Comment on above: Order Comment: Speci men Type: BLOOD SPECIMENOrdering Facility: [facility] Address: [address] [place] [address] Performed By: #### 5 7021-8 ####[facility] LABCLIA [id number] [place] [address] Nucleated RBC/100 WBC (Bld) [Ratio] 0.0 /100 WBC Normal [facility] Comment on above: Order Comment: Speci men Type: BLOOD SPECIMENOrdering Facility: [facility] Address: [address] [place] [address] Performed By: #### 5 7021-8 ####[facility] LABCLIA [id number] [place] [address] Platelet mean volume (Bld) [Entitic vol] 12.1 fL Normal 9.0-12.7 [facility] Comment on above: Order Comment: Speci men Type: BLOOD SPECIMENOrdering Facility: [facility] Address: [address] [place] [address] Performed By: #### 5 7021-8 ####[facility] LABCLIA [id number] [place] [address] Platelets (Bld) [#/Vol] 293 10*3/uL Normal 150-400 [facility] Comment on above: Order Comment: Speci men Type: BLOOD SPECIMENOrdering Facility: [facility] Address: [address] [place] [address] Performed By: #### 5 7021-8 ####[facility] LABCLIA [id number] [place] [address] RBC (Bld) [#/Vol] 4.10 10*6/uL Normal 3.90-5.20 [facility] Comment on above: Order Comment: Speci men Type: BLOOD SPECIMENOrdering Facility: [facility] Address: [address] [place] [address] Performed By: #### 5 7021-8 ####[facility] LABCLIA [id number] [place] [address] WBC (Bld) [#/Vol] 10.90 10*3/uL Normal 3.70-11.00 [facility] Comment on above: Order Comment: Speci men Type: BLOOD SPECIMENOrdering Facility: [facility] Address: [address] [place], [place] [address], [place] [address] Performed By: #### 5 7021-8 ####[facility] [id number] [place] [address] CNOVSPon 05-20-2023 CNOVSP Visit (SP) Office (H [facility]) -- ANDREW BARROS ([id number]) 1945 F Date Time Provider Department 05/20/23 3:00 PM SANDEEP LENZ During your visit today, we recorded the following information about you: Temperature Pulse Respiration Blood pressure 97.8 degrees 68/minute 16/minute 168/72 Weight Height 58.9 kg 1.626 m Sandeep Lenz MD 05/30/2023 5:58 AM Signed [facility] NAME: BarrosAndrew CLINIC NO.: [id number] DATE OF SERVICE: May 20, 2023 (Eduardo) [...] outer quadrant, invasive ductal carcinoma, ER postive, SD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 Mammograms at [facility] on 01/04/2021 Bi-Rads 2 benign. REVIEW [...] wounds or petechiae. ALLERGIES: ALLERGIES Allergen Reactions Dmybfjg-Cfo-Yjq Red* Unknown Other reaction(s): AOF MEDICATIONS: anastrozole [...] Take 500 (more content not included)... Normal [facility] 05-20-2023 [facility] Telephone ([facility]) -- ANDREW BARROS ([id number]) 1945 F Date Time Provider Department 05/20/[address] [facility] During your visit today, we recorded the following information about you: Samina Anderson 05/20/2023 4:06 PM Signed Refer to nephrology for hypercalcemia and kidney failure Lisa/Yan: Can you please refer patient and follow up? Thanks! Jennifer Christensen 05/22/2023 8:46 AM Signed Lisa: Information ready for you. [facility]30[facility] 7[facility]49 AM Signed Records faxed to Nephrology. Jennifer Aviles 06/05/2023 10:00 AM Signed Called spoke with Deepika at Nephrology office. She states she has not received this referral and has asked us to please refax it. LISA: Please refax this referral to Nephrology office. Thank You. Jennifer [facility] 06/05/2023 10:36 AM Signed Records re-faxed to [...] As of Date: 05/20/2023 Noted Allergy Reaction [id number]-YBV-LHE REDUCTASE INHIBIT*01/21/2018 16 - Unknown Comments: Other reaction(s): AOF Date Reviewed: 05/20/2023 Reviewed by: Arabella Cotter MA - Fully Assessed Reason for Visit: Referral Information [2395] Cmt: Nephrology Prescriptions as of 06/10/2023 - [...] Status:Closed by SAMINA ANDERSON on 06/10/23 Normal [facility] Calcium.ionized [Moles/Vol]o n 05-20-2023 Calcium.ionized (Bld) [Mass/Vol] 1.23 mmol/L 1.08 - 1.30 mmol/L [facility] Calcium.ionized adjusted to pH 7.4 (Bld) [Moles/Vol] 1.20 mmol/L 1.08 - 1.30 mmol/L [facility] Calcium.ionized (Bld) [Mass/Vol] 1.23 mmol/L Normal 1.08-1.30 [facility] Comment on above: Order Comment: Speci men Type: BLOOD SPECIMENOrdering Facility: [facility] Address: [address] [place] [address] Performed By: #### 1 995-0 ####[facility] LABCLIA [id number] [address] [id number] [facility] Calcium.ionized adjusted to pH 7.4 (Bld) [Moles/Vol] 1.20 mmol/L Normal 1.08-1.30 [facility] Comment on above: Order Comment: Speci men Type: BLOOD SPECIMENOrdering Facility: [facility] Address: [address] [place] [address] Performed By: #### 1 995-0 ####[facility] LABCLIA [id number] [address] [id number] [facility] Comprehensive metabolic 2000 panelon 05-20-2023 Albumin [Mass/Vol] 4.6 g/dL Normal 3.9-4.9 [facility] Comment on above: Order Comment: Speci men Type: BLOOD SPECIMENOrdering Facility: [facility] Address: [address] [place] [address] Performed By: #### 2 4323-8 ####[facility] LABCLIA [id number] [place] [address] ALP [Catalytic activity/Vol] 96 U/L Normal 34-123 [facility] Comment on above: Order Comment: Speci men Type: BLOOD SPECIMENOrdering Facility: [facility] Address: [address] [place] [address] Performed By: #### 2 4323-8 ####[facility] LABCLIA [id number] [place] [address] ALT [Catalytic activity/Vol] 13 U/L Normal 7-38 [facility] Comment on above: Order Comment: Speci men Type: BLOOD SPECIMENOrdering Facility: [facility] Address: [address] [place] [address] Performed By: #### 2 4323-8 ####[facility] LABCLIA [id number] [place] [address] Anion gap [Moles/Vol] 13 mmol/L Normal 9-18 [facility] Comment on above: Order Comment: Speci men Type: BLOOD SPECIMENOrdering Facility: [facility] Address: [address] [place] [address] Performed By: #### 2 4323-8 ####[facility] LABCLIA [id number] [place] [address] AST [Catalytic activity/Vol] 18 U/L Normal 13-35 [facility] Comment on above: Order Comment: Speci men Type: BLOOD SPECIMENOrdering Facility: [facility] Address: [address] [place] [address] Performed By: #### 2 4323-8 ####[facility] LABCLIA [id number] [place] [address] Bilirubin [Mass/Vol] 0.3 mg/dL Normal 0.2-1.3 [facility] Comment on above: Order Comment: Speci men Type: BLOOD SPECIMENOrdering Facility: [facility] Address: [address] [place] [address] Performed By: #### 2 4323-8 ####[facility] LABCLIA [id number] [place] [address] Calcium [Mass/Vol] 10.0 mg/dL Normal 8.5-10.2 [facility] Comment on above: Order Comment: Speci men Type: BLOOD SPECIMENOrdering Facility: [facility] Address: [address] [place] [address] Performed By: #### 2 4323-8 ####[facility] LABCLIA [id number] [place] [address] Chloride [Moles/Vol] 101 mmol/L Normal 97-105 [facility] Comment on above: Order Comment: Speci men Type: BLOOD SPECIMENOrdering Facility: [facility] Address: [address] [place] [address] Performed By: #### 2 4323-8 ####[facility] LABCLIA [id number] [place] [address] CO2 [Moles/Vol] 26 mmol/L Normal 22-30 [facility] Comment on above: Order Comment: Speci men Type: BLOOD SPECIMENOrdering Facility: [facility] Address: [address] [place] [address] Performed By: #### 2 4323-8 ####[facility] LABIA [id number] [place] [address] Creatinine [Mass/Vol] 1.32 mg/dL High 0.58-0.96 [facility] Comment on above: Order Comment: Speci men Type: BLOOD SPECIMENOrdering Facility: [facility] Address: [address] [place] [address] Performed By: #### 2 4323-8 ####[facility] LABIA [id number] [place] [address] Creatinine and Glomerular filtration rate.predicted panel (S/P/Bld) 41 mL/min/1.73m??? Low >=60 [facility] Comment on above: Order Comment: Speci men Type: BLOOD SPECIMENOrdering Facility: [facility] Address: [address] [place] [address] Result Comment: Sugar mated Glomerular Filtration Rate [...] actual GFR. Performed By: #### 2 4323-8 ####[facility] LABIA [id number] [place] [address] Glucose [Mass/Vol] 119 mg/dL High 74-99 [facility] Comment on above: Order Comment: Speci men Type: BLOOD SPECIMENOrdering Facility: [facility] Address: [address] [place] [address] Result Comment: The [place] Diabetes Association (ADA) provides guidance for cutoff [...] Standards of Medical Care in Diabetes 2016, [place] [employer]. Diabetes Care. 2016.39(Suppl 1). Performed By: #### 2 4323-8 ####[facility] LABCLIA [id number] [place] [address] Potassium [Moles/Vol] 4.1 mmol/L Normal 3.7-5.1 [facility] Comment on above: Order Comment: Speci men Type: BLOOD SPECIMENOrdering Facility: [facility] Address: [address] [address] Performed By: #### 2 4323-8 ####[facility] LABCLIA [id number] [place] [address] Protein [Mass/Vol] 7.6 g/dL Normal 6.3-8.0 [facility] Comment on above: Order Comment: Speci men Type: BLOOD SPECIMENOrdering Facility: [facility] Address: [address] [address] Performed By: #### 2 4323-8 ####[facility] LABCLIA [id number] [place] [address] Sodium [Moles/Vol] 140 mmol/L Normal 136-144 [facility] Comment on above: Order Comment: Speci men Type: BLOOD SPECIMENOrdering Facility: [facility] Address: [address] [address] Performed By: #### 2 4323-8 ####[facility] LABCLIA [id number] [place] [address] Urea nitrogen [Mass/Vol] 32 mg/dL High 7-21 [facility] Comment on above: Order Comment: Speci men Type: BLOOD SPECIMENOrdering Facility: [facility] Address: [place] [address] Performed By: #### 2 4323-8 ####[facility] LABCLIA [id number] [place] [address] CNSWon 05-09-2023 CNSW Social Work ([facility]) -- ANDREW BARROS ([id number]) 1945 F Date Time Provider Department 05/09/23 ALEIDA VARGAS During your visit today, we recorded the following information about you: Aleida Vargas LSW 05/09/2023 11:00 AM Signed Patient appears on the [facility] First Time Treatment List for a non-oncology treatment. No psychosocial assessment is indicated. DENIA Gupta-Karan Allergies As of Date: 05/09/2023 Noted Allergy Reaction [id number]-[id number]-JOW REDUCTASE INHIBIT*01/21/2018 16 - Unknown Comments: Other [...] Status:Closed by ALEIDA VARGAS on 05/09/23 Normal [facility] CA 15-3 BLDon 05-01-2023 Cancer Ag 15-3 Qn 9.9 U/mL <26.0 U/mL [facility] CA 27.29 BLOODon 05-01-2023 Cancer Ag 27-29 Qn 12.5 [arb'U]/mL <38.6 U/mL [facility] CBC W Auto Differential pane l (Bld)on 05-01-2023 Basophils (Bld) [#/Vol] 0.06 10*3/uL <0.11 k/uL [facility] Basophils/100 WBC (Bld) 0.6 % [facility] Differential cell count method Nom (Bld) Auto [facility] Eosinophils (Bld) [#/Vol] 0.18 10*3/uL <0.46 k/uL [facility] Eosinophils/100 WBC (Bld) 1.9 % [facility] Erythrocyte distribution width (RBC) [Ratio] 12.7 % 11.5 - 15.0 % [facility] Hematocrit (Bld) [Volume fraction] 36.4 % 36.0 - 46.0 % [facility] Hemoglobin (Bld) [Mass/Vol] 12.2 g/dL 11.5 - 15.5 g/dL [facility] Immature granulocytes (Bld) [#/Vol] 0.03 10*3/uL <0.10 k/uL [facility] Immature granulocytes/100 WBC (Bld) 0.3 % [facility] Lymphocytes (Bld) [#/Vol] 1.62 10*3/uL 1.00 - 4.00 k/uL [facility] Lymphocytes/100 WBC (Bld) 17.3 % [facility] MCH (RBC) [Entitic mass] 32.0 pg 26.0 - 34.0 pg [facility] MCHC (RBC) [Mass/Vol] 33.5 g/dL 30.5 - 36.0 g/dL [facility] MCV (RBC) [Entitic vol] 95.5 fL 80.0 - 100.0 fL [facility] Monocytes (Bld) [#/Vol] 0.99 10*3/uL High <0.87 k/uL [facility] Monocytes/100 WBC (Bld) 10.6 % [facility] Neutrophils (Bld) [#/Vol] 6.50 10*3/uL 1.45 - 7.50 k/uL [facility] Neutrophils/100 WBC (Bld) 69.3 % [facility] Nucleated RBC (Bld) [#/Vol] <0.01 k/uL [facility] Nucleated RBC/100 WBC (Bld) [Ratio] 0.0 /100 WBC [facility] Platelet mean volume (Bld) [Entitic vol] 11.9 fL 9.0 - 12.7 fL [facility] Platelets (Bld) [#/Vol] 252 10*3/uL 150 - 400 k/uL [facility] RBC (Bld) [#/Vol] 3.81 10*6/uL Low 3.90 - 5.2 0 m/uL [facility] WBC (Bld) [#/Vol] 9.38 10*3/uL 3.70 - 11.00 k/uL [facility] Comprehensive metabolic 2000 panelon 05-01-2023 Albumin [Mass/Vol] 4.3 g/dL 3.9 - 4.9 g/dL [facility] ALP [Catalytic activity/Vol] 93 U/L 34 - 123 U/L [facility] ALT [Catalytic activity/Vol] 14 U/L 7 - 38 U/L [facility] Anion gap [Moles/Vol] 14 mmol/L 9 - 18 mmol/L [facility] AST [Catalytic activity/Vol] 18 U/L 13 - 35 U/L [facility] Bilirubin [Mass/Vol] 0.3 mg/dL 0.2 - 1 .3 mg/dL [facility] Calcium [Mass/Vol] 10.6 mg/dL High 8.5 - 10. 2 mg/dL [facility] Chloride [Moles/Vol] 98 mmol/L 97 - 10 5 mmol/L [facility] CO2 [Moles/Vol] 26 mmol/L 22 - 30 mmol/L [facility] Creatinine [Mass/Vol] 1.38 mg/dL High 0.58 - 0.96 mg/dL [facility] Estimated Glomerular Filtration Rate 39 mL/min/1.73m Low >=60 mL/min/1.73 m [facility] Glucose [Mass/Vol] 207 mg/dL High 74 - 99 mg/dL [facility] Potassium [Moles/Vol] 3.7 mmol/L 3.7 - 5.1 mmol/L [facility] Protein [Mass/Vol] 6.9 g/dL 6.3 - 8.0 g/dL [facility] Sodium [Moles/Vol] 138 mmol/L 136 - 144 mmol/L [facility] Urea nitrogen [Mass/Vol] 39 mg/dL High 7 - 21 mg/dL [facility] CBC W Auto Differential pane l (Bld)on 04-30-2023 Basophils (Bld) [#/Vol] 0.06 10*3/uL Normal <0.11 [facility] Comment on above: Order Comment: Speci men Type: BLOOD SPECIMENOrdering Facility: [facility] Address: [address] [place] [id number] Performed By: #### 5 7021-8 ####[facility] LABCLIA [id number] [place] [address] Basophils/100 WBC (Bld) 0.6 % Normal [facility] Comment on above: Order Comment: Speci men Type: BLOOD SPECIMENOrdering Facility: [facility] Address: [address] [place] [address] Performed By: #### 5 7021-8 ####[facility] LABCLIA [id number] [place] [address] Differential cell count method Nom (Bld) Auto Normal [facility] Comment on above: Order Comment: Speci men Type: BLOOD SPECIMENOrdering Facility: [facility] Address: [address] [place] [address] Performed By: #### 5 7021-8 ####[facility] LABCLIA [id number] [place] [address] Eosinophils (Bld) [#/Vol] 0.18 10*3/uL Normal <0.46 [facility] Comment on above: Order Comment: Speci men Type: BLOOD SPECIMENOrdering Facility: [facility] Address: [address] [place] [address] Performed By: #### 5 7021-8 ####[facility] LABCLIA [id number] [place] [address] Eosinophils/100 WBC (Bld) 1.9 % Normal [facility] Comment on above: Order Comment: Speci men Type: BLOOD SPECIMENOrdering Facility: [facility] Address: [address] [place] [address] Performed By: #### 5 7021-8 ####[facility] LABCLIA [id number] [place] [address] Erythrocyte distribution width (RBC) [Ratio] 12.7 % Normal 11.5-15.0 [facility] Comment on above: Order Comment: Speci men Type: BLOOD SPECIMENOrdering Facility: [facility] Address: [address] [place] [address] Performed By: #### 5 7021-8 ####[facility] LABCLIA [id number] [place] [address] Hematocrit (Bld) [Volume fraction] 36.4 % Normal 36.0-46.0 [facility] Comment on above: Order Comment: Speci men Type: BLOOD SPECIMENOrdering Facility: [facility] Address: [address] [place] [address] Performed By: #### 5 7021-8 ####[facility] LABCLIA [id number] [place] [address] Hemoglobin (Bld) [Mass/Vol] 12.2 g/dL Normal 11.5-15.5 [facility] Comment on above: Order Comment: Speci men Type: BLOOD SPECIMENOrdering Facility: [facility] Address: [address] [place] [address] Performed By: #### 5 7021-8 ####[facility] LABCLIA [id number] [place] [address] Immature granulocytes (Bld) [#/Vol] 0.03 10*3/uL Normal <0.10 [facility] Comment on above: Order Comment: Speci men Type: BLOOD SPECIMENOrdering Facility: [facility] Address: [address] [place] [address] Performed By: #### 5 7021-8 ####[facility] LABCLIA [id number] [place] [address] Immature granulocytes/100 WBC (Bld) 0.3 % Normal [facility] Comment on above: Order Comment: Speci men Type: BLOOD SPECIMENOrdering Facility: [facility] Address: [address] [place] [address] Performed By: #### 5 7021-8 ####[facility] LABCLIA [id number] [place] [address] Lymphocytes (Bld) [#/Vol] 1.62 10*3/uL Normal 1.00-4.00 [facility] Comment on above: Order Comment: Speci men Type: BLOOD SPECIMENOrdering Facility: [facility] Address: [address] [place] [address] Performed By: #### 5 7021-8 ####[facility] LABCLIA [id number] [place] [address] Lymphocytes/100 WBC (Bld) 17.3 % Normal [facility] Comment on above: Order Comment: Speci men Type: BLOOD SPECIMENOrdering Facility: [facility] Address: [address] [place] [address] Performed By: #### 5 7021-8 ####[facility] LABCLIA [id number] [place] [address] MCH (RBC) [Entitic mass] 32.0 pg Normal 26.0-34.0 [facility] Comment on above: Order Comment: Speci men Type: BLOOD SPECIMENOrdering Facility: [facility] Address: [address] [place] [address] Performed By: #### 5 7021-8 ####[facility] LABCLIA [id number] [place] [address] MCHC (RBC) [Mass/Vol] 33.5 g/dL Normal 30.5-36.0 [facility] Comment on above: Order Comment: Speci men Type: BLOOD SPECIMENOrdering Facility: [facility] Address: [address] [place] [address] Performed By: #### 5 7021-8 ####[facility] LABIA [id number] [place] [address] MCV (RBC) [Entitic vol] 95.5 fL Normal 80.0-100.0 [facility] Comment on above: Order Comment: Speci men Type: BLOOD SPECIMENOrdering Facility: [facility] Address: [address] [place] [address] Performed By: #### 5 7021-8 ####[facility] LABCLIA [id number] [place] [address] Monocytes (Bld) [#/Vol] 0.99 10*3/uL High <0.87 [facility] Comment on above: Order Comment: Speci men Type: BLOOD SPECIMENOrdering Facility: [facility] Address: [address] [place] [address] Performed By: #### 5 7021-8 ####[facility] LABCLIA [id number] [place] [address] Monocytes/100 WBC (Bld) 10.6 % Normal [facility] Comment on above: Order Comment: Speci men Type: BLOOD SPECIMENOrdering Facility: [facility] Address: [address] [place] [address] Performed By: #### 5 7021-8 ####[facility] LABCLIA [id number] [place] [address] Neutrophils (Bld) [#/Vol] 6.50 10*3/uL Normal 1.45-7.50 [facility] Comment on above: Order Comment: Speci men Type: BLOOD SPECIMENOrdering Facility: [facility] Address: [address] [place] [address] Performed By: #### 5 7021-8 ####[facility] LABCLIA [id number] [place] [address] Neutrophils/100 WBC (Bld) 69.3 % Normal [facility] Comment on above: Order Comment: Speci men Type: BLOOD SPECIMENOrdering Facility: [facility] Address: [address] [place] [address] Performed By: #### 5 7021-8 ####[facility] LABCLIA [id number] [place] [address] Nucleated RBC (Bld) [#/Vol] 10*3/uL Normal <0.01 [facility] Comment on above: Order Comment: Speci men Type: BLOOD SPECIMENOrdering Facility: [facility] Address: [address] [address] Performed By: #### 5 7021-8 ####[facility] LABCLIA [id number] [place] [address] Nucleated RBC/100 WBC (Bld) [Ratio] 0.0 /100 WBC Normal [facility] Comment on above: Order Comment: Speci men Type: BLOOD SPECIMENOrdering Facility: [facility] Address: [address] [address] Performed By: #### 5 7021-8 ####[facility] LABIA [id number] [place] [address] Platelet mean volume (Bld) [Entitic vol] 11.9 fL Normal 9.0-12.7 [facility] Comment on above: Order Comment: Speci men Type: BLOOD SPECIMENOrdering Facility: [facility] Address: [address] [address] Performed By: #### 5 7021-8 ####[facility] LABCLIA [id number] [place] [address] Platelets (Bld) [#/Vol] 252 10*3/uL Normal 150-400 [facility] Comment on above: Order Comment: Speci men Type: BLOOD SPECIMENOrdering Facility: [facility] Address: [address] [address] Performed By: #### 5 7021-8 ####[facility] LABIA [id number] [place] [address] RBC (Bld) [#/Vol] 3.81 10*6/uL Low 3.90-5.20 [facility] Comment on above: Order Comment: Speci men Type: BLOOD SPECIMENOrdering Facility: [facility] Address: [address] [place] [address] Performed By: #### 5 7021-8 ####[facility] LABCLIA [id number] [place] [address] WBC (Bld) [#/Vol] 9.38 10*3/uL Normal 3.70-11.00 [facility] Comment on above: Order Comment: Speci men Type: BLOOD SPECIMENOrdering Facility: [facility] Address: [address] [place] [address] Performed By: #### 5 7021-8 ####[facility] LABCLIA [id number] [place] [address] Cancer Ag15-3 SerPl-aCncon 0 04-30-2023 Cancer Ag 15-3 Qn 9.9 U/mL Normal <26.0 [facility] Comment on above: Order Comment: Speci men Type: BLOOD SPECIMENOrdering Facility: [facility] Address: [address] [place] [address] Result Comment: The CA 15-3 test methodology used is the Electrochemiluminescence Immunoassay by [employer]. Results obtained with different methods or kits cannot be used interchangeably. Performed By: #### 6 875-9 ####[facility] LABCLIA [id number] [address] Cancer Ag27-29 SerPl-aCncon 04-30-2023 Cancer Ag 27-29 Qn 12.5 [arb'U]/mL Normal <38.6 [facility] Comment on above: Order Comment: Speci men Type: BLOOD SPECIMENOrdering Facility: [facility] Address: [address] [place] [address] Result Comment: The CA27.29 test was performed using the [employer] Techaur XP chemiluminometric immunoassay method. Results obtained with different assay methods or kits cannot be used interchangeably. Performed By: #### 1 7842-6 ####[facility] LABCLIA [id number] [address] OF [facility] Comprehensive metabolic 2000 panelon 04-30-2023 Albumin [Mass/Vol] 4.3 g/dL Normal 3.9-4.9 [facility] Comment on above: Order Comment: Speci men Type: BLOOD SPECIMENOrdering Facility: [facility] Address: [address] [address] Performed By: #### 2 4323-8 ####[facility] LABCLIA [id number] [place] [address] ALP [Catalytic activity/Vol] 93 U/L Normal 34-123 [facility] Comment on above: Order Comment: Speci men Type: BLOOD SPECIMENOrdering Facility: [facility] Address: [address] [address] Performed By: #### 2 4323-8 ####[facility] LABCLIA [id number] [place] [address] ALT [Catalytic activity/Vol] 14 U/L Normal 7-38 [facility] Comment on above: Order Comment: Speci men Type: BLOOD SPECIMENOrdering Facility: [facility] Address: [address] [address] Performed By: #### 2 4323-8 ####[facility] LABCLIA [id number] [place] [address] Anion gap [Moles/Vol] 14 mmol/L Normal 9-18 [facility] Comment on above: Order Comment: Speci men Type: BLOOD SPECIMENOrdering Facility: [facility] Address: [address] [address] Performed By: #### 2 4323-8 ####[facility] LABCLIA [id number] [place] [address] AST [Catalytic activity/Vol] 18 U/L Normal 13-35 [facility] Comment on above: Order Comment: Speci men Type: BLOOD SPECIMENOrdering Facility: [facility] Address: [address] [address] Performed By: #### 2 4323-8 ####[facility] LABCLIA [id number] [place] [address] Bilirubin [Mass/Vol] 0.3 mg/dL Normal 0.2-1.3 [facility] Comment on above: Order Comment: Speci men Type: BLOOD SPECIMENOrdering Facility: [facility] Address: [address] [place] [address] Performed By: #### 2 4323-8 ####[facility] LABCLIA [id number] [place] [address] Calcium [Mass/Vol] 10.6 mg/dL High 8.5-10.2 [facility] Comment on above: Order Comment: Speci men Type: BLOOD SPECIMENOrdering Facility: [facility] Address: [address] [place] [address] Performed By: #### 2 4323-8 ####[facility] LABCLIA [id number] [place] [address] Chloride [Moles/Vol] 98 mmol/L Normal 97-105 [facility] Comment on above: Order Comment: Speci men Type: BLOOD SPECIMENOrdering Facility: [facility] Address: [address] [place] [address] Performed By: #### 2 4323-8 ####[facility] LABCLIA [id number] [place] [address] CO2 [Moles/Vol] 26 mmol/L Normal 22-30 [facility] Comment on above: Order Comment: Speci men Type: BLOOD SPECIMENOrdering Facility: [facility] Address: [address] [place] [address] Performed By: #### 2 4323-8 ####[facility] LABCLIA [id number] [place] [address] Creatinine [Mass/Vol] 1.38 mg/dL High 0.58-0.96 [facility] Comment on above: Order Comment: Speci men Type: BLOOD SPECIMENOrdering Facility: [facility] Address: [address] [address] Performed By: #### 2 4323-8 ####[facility] LABCLIA [id number] [place] [address] ESTIMATED GLOMERULAR FILTRATION RATE 39 mL/min/1.73m??? Low >=60 [facility] Comment on above: Order Comment: Anastacio bonilla Type: BLOOD SPECIMENOrdering Facility: [facility] Address: [address] [place] [address] Result Comment: Sugar mated Glomerular Filtration Rate [...] actual GFR. Performed By: #### 2 4323-8 ####[facility] LABCLIA [id number] [place] [address] Glucose [Mass/Vol] 207 mg/dL High 74-99 [facility] Comment on above: Order Comment: Anastacio bonilla Type: BLOOD SPECIMENOrdering Facility: [facility] Address: [address] [place] [address] Result Comment: The [place] Diabetes Association (ADA) provides guidance for cutoff [...] Standards of Medical Care in Diabetes 2016, [place] [employer] Association. Diabetes Care. 2016.39(Suppl 1). Performed By: #### 2 4323-8 ####[facility] LABCLIA [id number] [place] [address] Potassium [Moles/Vol] 3.7 mmol/L Normal 3.7-5.1 [facility] Comment on above: Order Comment: Speci men Type: BLOOD SPECIMENOrdering Facility: [facility] Address: [address] [place] [address] Performed By: #### 2 4323-8 ####[facility] LABCLIA [id number] [place] [address] Protein [Mass/Vol] 6.9 g/dL Normal 6.3-8.0 [facility] Comment on above: Order Comment: Speci men Type: BLOOD SPECIMENOrdering Facility: [facility] Address: [address] [place] [address] Performed By: #### 2 4323-8 ####[facility] LABCLIA [id number] [place] [address] Sodium [Moles/Vol] 138 mmol/L Normal 136-144 [facility] Comment on above: Order Comment: Speci men Type: BLOOD SPECIMENOrdering Facility: [facility] Address: [address] [place] [address] Performed By: #### 2 4323-8 ####[facility] LABCLIA [id number] [place] [address] Urea nitrogen [Mass/Vol] 39 mg/dL High 7-21 [facility] Comment on above: Order Comment: Speci men Type: BLOOD SPECIMENOrdering Facility: [facility] Address: [address] [place] [address] Performed By: #### 2 4323-8 ####[facility] LABIA [id number] [place] [address] PTH RELATED PEPTIDEon 2022 PTH RELATED PEPTIDE 3.9 pmol/L High 0.0-3.4 [facility] Comment on above: Order Comment: Speci men Type: BLOOD SPECIMENOrdering Facility: [facility] Address: [address] [address] Result Comment: INTE RPRETIVE INFORMATION: Parathyroid Hormone-Related Peptide This test was developed and its performance characteristics determined by [employer]. It has not been cleared or approved by the [place] Food and Drug Administration. This test was performed in a CLIA certified laboratory and is intended for clinical purposes. Performed By: [facility] [address] [place] [address] [employer]ide Fasteners Inspector: Mark Fernandez MD, PhD CLIA Number: [id number] Performed By: #### P THPEP ####[facility] [id number] [place] [address] CBC W Auto Differential pane l (Bld)on 04-29-2023 Basophils (Bld) [#/Vol] 0.05 10*3/uL Normal <0.11 [facility] Comment on above: Order Comment: Speci men Type: BLOOD SPECIMENOrdering Facility: [facility] Address: [address] [address] Performed By: #### 5 7021-8 ####[facility] LABCLIA [id number] [place] [address] Basophils/100 WBC (Bld) 0.5 % Normal [facility] Comment on above: Order Comment: Speci men Type: BLOOD SPECIMENOrdering Facility: [facility] Address: [address] [address] Performed By: #### 5 7021-8 ####[facility] LABCLIA [id number] [place] [address] Differential cell count method Nom (Bld) Auto Normal [facility] Comment on above: Order Comment: Speci men Type: BLOOD SPECIMENOrdering Facility: [facility] Address: [address] [address] Performed By: #### 5 7021-8 ####[facility] LABCLIA [id number] [place] [address] Eosinophils (Bld) [#/Vol] 0.17 10*3/uL Normal <0.46 [facility] Comment on above: Order Comment: Speci men Type: BLOOD SPECIMENOrdering Facility: [facility] Address: [address] [place] [address] Performed By: #### 5 7021-8 ####[facility] LABCLIA [id number] [place] [address] Eosinophils/100 WBC (Bld) 1.6 % Normal [facility] Comment on above: Order Comment: Speci men Type: BLOOD SPECIMENOrdering Facility: [facility] Address: [address] [address] Performed By: #### 5 7021-8 ####[facility] LABCLIA [id number] [place] [address] Erythrocyte distribution width (RBC) [Ratio] 12.7 % Normal 11.5-15.0 [facility] Comment on above: Order Comment: Speci men Type: BLOOD SPECIMENOrdering Facility: [facility] Address: [address] [address] Performed By: #### 5 7021-8 ####[facility] LABCLIA [id number] [place] [address] Hematocrit (Bld) [Volume fraction] 40.7 % Normal 36.0-46.0 [facility] Comment on above: Order Comment: Speci men Type: BLOOD SPECIMENOrdering Facility: [facility] Address: [address] [address] Performed By: #### 5 7021-8 ####[facility] LABIA [id number] [place] [address] Hemoglobin (Bld) [Mass/Vol] 13.4 g/dL Normal 11.5-15.5 [facility] Comment on above: Order Comment: Speci men Type: BLOOD SPECIMENOrdering Facility: [facility] Address: [address] [place] [address] Performed By: #### 5 7021-8 ####[facility] LABCLIA [id number] [place] [address] Immature granulocytes (Bld) [#/Vol] 10*3/uL Normal <0.10 [facility] Comment on above: Order Comment: Speci men Type: BLOOD SPECIMENOrdering Facility: [facility] Address: [address] [place] [address] Performed By: #### 5 7021-8 ####[facility] LABCLIA [id number] [place] [address] Immature granulocytes/100 WBC (Bld) 0.2 % Normal [facility] Comment on above: Order Comment: Speci men Type: BLOOD SPECIMENOrdering Facility: [facility] Address: [address] [place] [address] Performed By: #### 5 7021-8 ####[facility] LABCLIA [id number] [place] [address] Lymphocytes (Bld) [#/Vol] 1.80 10*3/uL Normal 1.00-4.00 [facility] Comment on above: Order Comment: Speci men Type: BLOOD SPECIMENOrdering Facility: [facility] Address: [address] [place] [address] Performed By: #### 5 7021-8 ####[facility] LABCLIA [id number] [place] [address] Lymphocytes/100 WBC (Bld) 16.9 % Normal [facility] Comment on above: Order Comment: Speci men Type: BLOOD SPECIMENOrdering Facility: [facility] Address: [address] [place] [address] Performed By: #### 5 7021-8 ####[facility] LABCLIA [id number] [place] [address] MCH (RBC) [Entitic mass] 31.2 pg Normal 26.0-34.0 [facility] Comment on above: Order Comment: Speci men Type: BLOOD SPECIMENOrdering Facility: [facility] Address: [address] [place] [address] Performed By: #### 5 7021-8 ####[facility] LABCLIA [id number] [place] [address] MCHC (RBC) [Mass/Vol] 32.9 g/dL Normal 30.5-36.0 [facility] Comment on above: Order Comment: Speci men Type: BLOOD SPECIMENOrdering Facility: [facility] Address: [address] [place] [address] Performed By: #### 5 7021-8 ####[facility] LABCLIA [id number] [place] [address] MCV (RBC) [Entitic vol] 94.7 fL Normal 80.0-100.0 [facility] Comment on above: Order Comment: Speci men Type: BLOOD SPECIMENOrdering Facility: [facility] Address: [address] [place] [address] Performed By: #### 5 7021-8 ####[facility] LABIA [id number] [place] [address] Monocytes (Bld) [#/Vol] 0.88 10*3/uL High <0.87 [facility] Comment on above: Order Comment: Speci men Type: BLOOD SPECIMENOrdering Facility: [facility] Address: [address] [place] [address] Performed By: #### 5 7021-8 ####[facility] LABCLIA [id number] [place] [address] Monocytes/100 WBC (Bld) 8.3 % Normal [facility] Comment on above: Order Comment: Speci men Type: BLOOD SPECIMENOrdering Facility: [facility] Address: [address] [place] [address] Performed By: #### 5 7021-8 ####[facility] LABCLIA [id number] [place] [address] Neutrophils (Bld) [#/Vol] 7.74 10*3/uL High 1.45-7.50 [facility] Comment on above: Order Comment: Speci men Type: BLOOD SPECIMENOrdering Facility: [facility] Address: [address] [place] [address] Performed By: #### 5 7021-8 ####[facility] LABCLIA [id number] [place] [address] Neutrophils/100 WBC (Bld) 72.5 % Normal [facility] Comment on above: Order Comment: Speci men Type: BLOOD SPECIMENOrdering Facility: [facility] Address: [address] [place] [address] Performed By: #### 5 7021-8 ####[facility] LABCLIA [id number] [place] [address] Nucleated RBC (Bld) [#/Vol] 10*3/uL Normal <0.01 [facility] Comment on above: Order Comment: Speci men Type: BLOOD SPECIMENOrdering Facility: [facility] Address: [address] [place] [address] Performed By: #### 5 7021-8 ####[facility] LABCLIA [id number] [place] [address] Nucleated RBC/100 WBC (Bld) [Ratio] 0.0 /100 WBC Normal [facility] Comment on above: Order Comment: Speci men Type: BLOOD SPECIMENOrdering Facility: [facility] Address: [address] [place] [address] Performed By: #### 5 7021-8 ####[facility] LABCLIA [id number] [place] [address] Platelet mean volume (Bld) [Entitic vol] 10.7 fL Normal 9.0-12.7 [facility] Comment on above: Order Comment: Speci men Type: BLOOD SPECIMENOrdering Facility: [facility] Address: [address] [address] Performed By: #### 5 7021-8 ####[facility] LABIA [id number] [place] [address] Platelets (Bld) [#/Vol] 280 10*3/uL Normal 150-400 [facility] Comment on above: Order Comment: Speci men Type: BLOOD SPECIMENOrdering Facility: [facility] Address: [address] [address] Performed By: #### 5 7021-8 ####[facility] LABIA [id number] [place] [address] RBC (Bld) [#/Vol] 4.30 10*6/uL Normal 3.90-5.20 [facility] Comment on above: Order Comment: Speci men Type: BLOOD SPECIMENOrdering Facility: [facility] Address: [address] [place] [address] Performed By: #### 5 7021-8 ####[facility] LABIA [id number] [place] [address] WBC (Bld) [#/Vol] 10.66 10*3/uL Normal 3.70-11.00 [facility] Comment on above: Order Comment: Speci men Type: BLOOD SPECIMENOrdering Facility: [facility] Address: [address] [place] [address] Performed By: #### 5 7021-8 ####[facility] LABIA [id number] [place] [address] CNOVSPon 04-29-2023 CNOVSP Visit (SP) Office ([facility]) -- ANDREW [id number]) 1945 F Date Time Provider Department 04/29/23 3:15 PM SANDEEP LENZ During your visit today, we recorded the following information about you: Temperature Pulse Respiration Blood pressure 97 degrees 66/minute 16/minute 153/66 Weight Height 58.2 kg 1.626 m Sandeep Lenz MD 05/05/2023 6:04 PM Signed NAME: Andrew Barros CLINIC NO.: [id number] DATE OF SERVICE: April 29, 2023 (Eduardo) [...] outer quadrant, invasive ductal carcinoma, ER postive, SD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 Mammograms at [facility] on 01/04/2021 Bi-Rads 2 benign. REVIEW [...] of recurring mass. ALLERGIES: ALLERGIES Allergen Reactions Sytiyux-Lsy-Anv Red* Unknown Other reaction(s): AOF MEDICATIONS: doxazosin (CARDURA) 4 mg tablet Take 4 mg by mouth daily at bedtime. aspirin (ASPIR-81 ORAL) Take 81 mg by mo (more content not included)... Normal [facility] Comprehensive metabolic 2000 panelon 04-29-2023 Albumin [Mass/Vol] 4.4 g/dL Normal 3.9-4.9 [facility] Comment on above: Order Comment: Speci men Type: BLOOD SPECIMENOrdering Facility: [facility] Address: [address] [place] [address] Performed By: #### 2 4323-8 ####[facility] LABCLIA [id number] [place] [address] ALP [Catalytic activity/Vol] 98 U/L Normal 34-123 [facility] Comment on above: Order Comment: Speci men Type: BLOOD SPECIMENOrdering Facility: [facility] Address: [address] [place] [address] Performed By: #### 2 4323-8 ####[facility] LABCLIA [id number] [place] [address] ALT [Catalytic activity/Vol] 15 U/L Normal 7-38 [facility] Comment on above: Order Comment: Speci men Type: BLOOD SPECIMENOrdering Facility: [facility] Address: [address] [place] [address] Performed By: #### 2 4323-8 ####[facility] LABIA [id number] [place] [address] Anion gap [Moles/Vol] 15 mmol/L Normal 9-18 [facility] Comment on above: Order Comment: Speci men Type: BLOOD SPECIMENOrdering Facility: [facility] Address: [address] [address] Performed By: #### 2 4323-8 ####[facility] LABCLIA [id number] [place] [address] AST [Catalytic activity/Vol] 20 U/L Normal 13-35 [facility] Comment on above: Order Comment: Speci men Type: BLOOD SPECIMENOrdering Facility: [facility] Address: [address] [address] Performed By: #### 2 4323-8 ####[facility] LABCLIA [id number] [place] [address] Bilirubin [Mass/Vol] 0.4 mg/dL Normal 0.2-1.3 [facility] Comment on above: Order Comment: Speci men Type: BLOOD SPECIMENOrdering Facility: [facility] Address: [address] [place] [address] Performed By: #### 2 4323-8 ####[facility] LABCLIA [id number] [place] [address] Calcium [Mass/Vol] 11.1 mg/dL High 8.5-10.2 [facility] Comment on above: Order Comment: Speci men Type: BLOOD SPECIMENOrdering Facility: [facility] Address: [address] [place] [address] Performed By: #### 2 4323-8 ####[facility] LABCLIA [id number] [place] [address] Chloride [Moles/Vol] 98 mmol/L Normal 97-105 [facility] Comment on above: Order Comment: Speci men Type: BLOOD SPECIMENOrdering Facility: [facility] Address: [address] [place] [address] Performed By: #### 2 4323-8 ####[facility] LABCLIA [id number] [place] [address] CO2 [Moles/Vol] 28 mmol/L Normal 22-30 [facility] Comment on above: Order Comment: Speci men Type: BLOOD SPECIMENOrdering Facility: [facility] Address: [address] [place] [address] Performed By: #### 2 4323-8 ####[facility] LABCLIA [id number] [place] [address] Creatinine [Mass/Vol] 1.49 mg/dL High 0.58-0.96 [facility] Comment on above: Order Comment: Speci men Type: BLOOD SPECIMENOrdering Facility: [facility] Address: [address] [place] [address] Performed By: #### 2 4323-8 ####[facility] LABCLIA [id number] [place] [address] ESTIMATED GLOMERULAR FILTRATION RATE 36 mL/min/1.73m??? Low >=60 [facility] Comment on above: Order Comment: Speci men Type: BLOOD SPECIMENOrdering Facility: [facility] Address: [address] [place] [address] Result Comment: Sugar mated Glomerular Filtration Rate [...] actual GFR. Performed By: #### 2 4323-8 ####[facility] LABCLIA [id number] [place] [address] Glucose [Mass/Vol] 135 mg/dL High 74-99 [facility] Comment on above: Order Comment: Speci men Type: BLOOD SPECIMENOrdering Facility: [facility] Address: [address] [place] [address] Result Comment: The [place] Diabetes Association (ADA) provides guidance for cutoff [...] Standards of Medical Care in Diabetes 2016, [place] [employer] Association. Diabetes Care. 2016.39(Suppl 1). Performed By: #### 2 4323-8 ####[facility] LABCLIA [id number] [place] [address] Potassium [Moles/Vol] 3.9 mmol/L Normal 3.7-5.1 [facility] Comment on above: Order Comment: Speci men Type: BLOOD SPECIMENOrdering Facility: [facility] Address: [address] [place] [address] Performed By: #### 2 4323-8 ####[facility] LABCLIA [id number] [place] [address] Protein [Mass/Vol] 7.4 g/dL Normal 6.3-8.0 [facility] Comment on above: Order Comment: Speci men Type: BLOOD SPECIMENOrdering Facility: [facility] Address: [address] [place] [address] Performed By: #### 2 4323-8 ####[facility] LABCLIA [id number] [place] [address] Sodium [Moles/Vol] 141 mmol/L Normal 136-144 [facility] Comment on above: Order Comment: Speci men Type: BLOOD SPECIMENOrdering Facility: [facility] Address: [address] [place] [address] Performed By: #### 2 4323-8 ####[facility] LABCLIA [id number] [place] [address] Urea nitrogen [Mass/Vol] 38 mg/dL High 7-21 [facility] Comment on above: Order Comment: Speci men Type: BLOOD SPECIMENOrdering Facility: [facility] Address: [place] [address] Performed By: #### 2 4323-8 ####[facility] LABCLIA [id number] [place] [address] Office Visiton 04-01-2023 Follow-up visit [id number] Wayne Barros A 1945 F Date Provider Department Center 04/01/2023 GISSELL WANG KASHIF [facility] Family History Problem Relation Age of Onset Coronary artery disease Mother Coronary artery disease Father Coronary artery disease Sister Coronary artery disease Brother Family Status - Relation Status Age at Mother Father Sister Brother Level of Service:48002 SD OFFICE/OUTPATIENT ESTABLISHED MOD MDM 30-39 MIN Reason for Visit and Comments: Atrial Fibrillation [80] Hypertension [978660] Normal [facility] 36on 03-27-2023 36 Called and discussed . Thanks. Normal [facility] Office Visiton 01-14-2023 Follow-up visit [id number] Wayne Barros A 1945 F Date Provider Department Center 01/14/2023 DAYO OLSEN KASHIF [facility]icio[facility] Family History Problem Relation Age of Onset Coronary artery disease Mother Coronary artery disease Father Coronary artery disease Sister Coronary artery disease Brother Family Status - Relation Status Age at Mother Father Sister Brother Level of Service:67402 SD OFFICE/OUTPATIENT ESTABLISHED MOD MDM 30-39 MIN Reason for Visit and Comments: Atrial Fibrillation [80] Congestive Heart Failure [127] Hypertension [861318] Valve Disorder [3372] Normal [facility] BNPon 08-24-2022 Natriuretic peptide B (Bld) [Mass/Vol] 1296.0 pg/mL Normal <=1,800.0 [facility] Comment on above: Performed By: #### B PANAMA HAT SMEARER, CMP ####[facility] [address] [place], [place] [address]YwOtto Reis CBC W MANUAL DIFFon 08-24-20 22 ATYPICAL LYMPH # Normal [facility] Comment on above: Performed By: #### C BCMAN ####[facility] [address] [id number]. Yilan Reis ATYPICAL LYMPH % Normal [facility] Comment on above: Performed By: #### C BCYUN ####[facility] [address] [address]Dr. Yilan Reis BAND # 0.1 103/ul Normal 0.0-0.3 [facility] Comment on above: Performed By: #### C BCYUN ####[facility] [address] [address]Dr. Yilan Reis BAND % 1 % Normal 0-5 [facility] Comment on above: Performed By: #### C NGA ####[facility] Ncq[address] [place], [place] [address]Dr. Yitracy Reis BASOM # 0.00 103/ul Normal 0.00-0.10 [facility] Comment on above: Performed By: #### C NGA ####[facility] Rdqgkyadky[address] [place], [place] [address]Dr. Yitracy Reis BASOM % 0.0 % Critically low 0.2-2.0 [facility] Comment on above: Performed By: #### C BCYUN ####[facility] [address] [place], [place] [address]Dr. Yilan Reis BLAST # Normal [facility] Comment on above: Performed By: #### C NGA ####[facility] [address] [place], [place] [address]Dr. Yilan Reis BLAST % Normal [facility] Comment on above: Performed By: #### C NGA ####[facility] [address] [address]Dr. Inessalan Reis CORRECTED WBC Normal 4.0-11.0 [facility] Comment on above: Performed By: #### C BCYUN ####[facility] Pbovf[address] [place], [place] [address]Dr. Yilan Reis EOS # 0.39 103/ul Normal 0.00-0.70 [facility] Comment on above: Performed By: #### C BCYUN ####[facility] Djxyzrlcxc8784 [place], [place] [address]Zy. Swathi Reis EOS% 3.0 % Normal 0.9-7.0 [facility] Comment on above: Performed By: #### C NGA ####[facility] Eyfzecuqro9886 [place], [place] [address]Uh. Swathi Reis HCT 32.6 % Critically low 36.0-48.0 [facility] Comment on above: Performed By: #### C NGA ####[facility] Msfmmocgiz8015 [place], [place] [address]Tt. Swathi Reis HGB 10.6 g/dl Critically low 12.0-16.0 [facility] Comment on above: Performed By: #### C NGA ####[facility] Cfzcgulzod[address] [place], [place] [address]Xo. Swathi Reis HYPOCHROMASIA SLIGHT Normal [facility] Comment on above: Performed By: #### C NGA ####[facility] [address] [phone]. Swathi Reis LYMPHM # 1.04 103/ul Critically low 1.20-3.80 The [facility] Comment on above: Performed By: #### C NGA ####[facility] Lcytcudrwc9091 [place], [place] [address]Vt. Swathi Reis LYMPHM% 8.0 % Critically low 20.5-60.0 [facility] Comment on above: Performed By: #### C NGA ####[facility] Dlfskkgmxn2011 [place], [place] [address]Bg. Swathi Reis MCH 29.2 pg Normal 26.7-34.0 [facility] Comment on above: Performed By: #### C NGA ####[facility] Jefpezfdns4911 [place], [place] [address]Mh. Swathi Reis MCHC 32.5 g/dl Normal 29.9-35.2 [facility] Comment on above: Performed By: #### C NGA ####[facility] [address] [phone]. Swathi Reis MCV 89.8 fL Normal 81.0-99.0 [facility] Comment on above: Performed By: #### C BCMAN ####[facility] [address] [phone]. Swathi Reis METAMYELOCYTE # Normal [facility] Comment on above: Performed By: #### C NGA ####[facility] [address]be[address] [phone]. Swathi Reis METAMYELOCYTE % Normal [facility] Comment on above: Performed By: #### C NGA ####[facility] [address]dm[address] [phone]. Swathi Reis MONOM# 1.17 103/ul Critically high 0.30-0.80 [facility] Comment on above: Performed By: #### C NGA ####[facility] [address] [place], [place] [address]Dr. Swathi Reis MONOM% 9.0 % Normal 1.7-12.0 [facility] Comment on above: Performed By: #### C NGA ####[facility] [address] [place], [place] [address]Dr. Swathi Reis MPV 10.0 fL Normal 9.5-13.5 [facility] Comment on above: Performed By: #### C NGA ####[facility] [address] [phone]. Swathi Reis MYELOCYTE # Normal [facility] Comment on above: Performed By: #### C NGA ####[facility] [address]ow[address] [phone]. Swathi Reis MYELOCYTE % Normal [facility] Comment on above: Performed By: #### C NGA ####[facility] [address] [place], [place] [address]Dr. Swathi Reis NRBC Normal [facility] Comment on above: Performed By: #### C NGA ####[facility] [address]ab[address] [phone]. Swathi Reis PLT 353 103/ul Normal 150-450 [facility] Comment on above: Performed By: #### C NGA ####[facility] Enxfad[address]ut5[address] [place], [place] [address]Pv. Swathi Reis RBC 3.63 106/ul Critically low 4.20-5.[address] [facility] Comment on above: Performed By: #### C NGA ####[facility] [address]qp[address] [phone]. Swathi Chato RDW 13.6 % Normal 11.0-15.0 [facility] Comment on above: Performed By: #### C NGA ####[facility] Qhxssvjgtf9794 [place], [place] [address]Gm. Swathi Reis SEG # 10.27 103/ul Critically high 1.40-6.50 [facility] Comment on above: Performed By: #### C NGA ####[facility] [address] [phone] Reis SEG % 79.0 % Critically high 43.0-75.[address] [facility] Comment on above: Performed By: #### C NGA ####[facility] Wimmvuydlq2256 [place], [place] [address]PxOtto Swathi Chato WBC 13.0 103/ul Critically high 4.0-11.0 [facility] Comment on above: Performed By: #### C NGA ####[facility] [address]miya3[address] [phone] Reis DIGOXINon 08-24-2022 DIG 1.8 ng/mL Normal 0.9-2.0 [facility] Comment on above: Performed By: #### D IG ####[facility] Dlqvwzmahj8829 [place], [place] [address]KrOtto Reis PROF 14(COMP METB)on 022 Albumin [Mass/Vol] 2.4 g/dL Critically low 3.4-5.0 [facility] Comment on above: Performed By: #### B PANAMA HAT SMEARER, CMP ####[facility] [address] [phone] Reis Albumin/Globulin [Mass ratio] 0.5 {ratio} Normal [facility] Comment on above: Performed By: #### B PANAMA HAT SMEARER, CMP ####[facility] [address] [address]Dr. Inessatracy Reis ALP [Catalytic activity/Vol] 93 U/L Normal 46-116 [facility] Comment on above: Performed By: #### B PANAMA HAT SMEARER, CMP ####[facility] Ozeyibvrfu[address] [place], [place] [address]Dr. Swathi Reis ALT [Catalytic activity/Vol] 8 U/L Critically low 14-59 [facility] Comment on above: Performed By: #### B PANAMA HAT SMEARER, CMP ####[facility] [address]fupdieknq[address] [place], [place] [address]Dr. Swathi Reis Anion gap [Moles/Vol] 11.2 mmol/L Normal [facility] Comment on above: Performed By: #### B PANAMA HAT SMEARER, CMP ####[facility] Nusoseztio90[address] [place], [place] [address]Dr. Swathi Reis AST [Catalytic activity/Vol] 14 U/L Critically low 15-37 [facility] Comment on above: Performed By: #### B PANAMA HAT SMEARER, CMP ####[facility] Mvjautynfg[address] [place], [place] [address]Dr. Swathi Reis Bilirubin [Mass/Vol] 0.4 mg/dL Normal 0.2-1.0 [facility] Comment on above: Performed By: #### B PANAMA HAT SMEARER, CMP ####[facility] Dbbxnjyxvx[address] [place], [place] [address]Dr. Swathi Reis Calcium [Mass/Vol] 9.4 mg/dL Normal 8.5-10.1 [facility] Comment on above: Performed By: #### B PANAMA HAT SMEARER, CMP ####[facility] Xypgdylred[address] [place], [place] [address]Dr. Swathi Reis Chloride [Moles/Vol] 101 mmol/L Normal 98-107 [facility] Comment on above: Performed By: #### B PANAMA HAT SMEARER, CMP ####[facility] Snydkwhaxh[address] [place], [place] [address]Dr. Swathi Reis CO2 [Moles/Vol] 31.0 mmol/L Normal 21.0-32.0 [facility] Comment on above: Performed By: #### B PANAMA HAT SMEARER, CMP ####[facility] Rsswbwbljn[address] [place], [place] [address]Dr. Swathi Reis Creatinine [Mass/Vol] 1.49 mg/dL Critically high 0.55-1.02 [facility] Comment on above: Performed By: #### B PANAMA HAT SMEARER, CMP ####[facility] Sxlvsiqizg[address] [place], [place] [address]Dr. Swathi Reis EGFR-AF FIJIAN 41 mL/min/1.73m2 Critically low >=60 [facility] Comment on above: Performed By: #### B PANAMA HAT SMEARER, CMP ####[facility] Cuybbdzzvc[address] [place], [place] [address]Dr. Swathi Reis EGFR-NON AF FIJIAN 34 mL/min/1.73m2 Critically low >=60 [facility] Comment on above: Performed By: #### B PANAMA HAT SMEARER, CMP ####[facility] Ixzvffwdzk[address] [place], [place] [address]Dr. Swathi Reis Globulin (S) [Mass/Vol] 4.8 g/dL Normal [facility] Comment on above: Performed By: #### B PANAMA HAT SMEARER, CMP ####[facility] Jhkxyhgahv[address] [place], [place] [address]Dr. Swathi Reis Glucose [Mass/Vol] 153 mg/dL Critically high 74-106 [facility] Comment on above: Performed By: #### B PANAMA HAT SMEARER, CMP ####[facility] Rjigxfnlth[address] [place], [place] [address]Dr. Swathi Reis Potassium [Moles/Vol] 4.2 mmol/L Normal 3.5-5.1 [facility] Comment on above: Performed By: #### B PANAMA HAT SMEARER, CMP ####[facility] Crbjjfiohh[address] [place], [place] [address]Dr. Swathi Reis Protein [Mass/Vol] 7.2 g/dL Normal 6.4-8.2 [facility] Comment on above: Performed By: #### B PANAMA HAT SMEARER, CMP ####[facility] Mrbgwbwigl[address] [place], [place] [address]Dr. Swathi Reis Sodium [Moles/Vol] 139 mmol/L Normal 136-145 [facility] Comment on above: Performed By: #### B PANAMA HAT SMEARER, CMP ####[facility] Lwcymhufxg[address] [place], [place] [address]Dr. Swathi Reis Urea nitrogen [Mass/Vol] 22.0 mg/dL Critically high 7.0-18.0 [facility] Comment on above: Performed By: #### B PANAMA HAT SMEARER, CMP ####[facility] Jwzbyumyiw[address] [place], [place] [address]Dr. Swathi Chato Urea nitrogen/Creatinine [Mass ratio] 14.8 mg/mg Normal [facility] Comment on above: Performed By: #### B PANAMA HAT SMEARER, CMP ####[facility] Tdxpceqftx[address] [place], [place] [address]Dr. Swathi Chato BNPon 08-23-2022 Natriuretic peptide B (Bld) [Mass/Vol] 1755.0 pg/mL Normal <=1,800.0 [facility] Comment on above: Performed By: #### B PANAMA HAT SMEARER, CMP ####[facility] Wapebkrseq[address] [place], [place] [address]Dr. Swathi Chato CBC AUTO DIFFon 08-23-2022 BASO # 0.1 103/ul Normal 0.0-0.1 [facility] Comment on above: Performed By: #### C BC ####[facility] Ylmpxxltmc[address] [place], [place] [address]Dr. Swathi Chato Basophils/100 WBC (Bld) 0.7 % Normal 0.2-2.0 [facility] Comment on above: Performed By: #### C BC ####[facility] [address]uz[address]afa[address] [place], [place] [address]Dr. Swathi Reis EO # 0.2 103/ul Normal 0.0-0.7 [facility] Comment on above: Performed By: #### C BC ####[facility] Kcblihbyoz[address] [place], [place] [address]Dr. Swathi Chato Eosinophils/100 WBC (Bld) 2.2 % Normal 0.9-7.0 [facility] Comment on above: Performed By: #### C BC ####[facility] [address]cdad[address] [place] [address]DrOtto Reis Erythrocyte distribution width (RBC) [Ratio] 13.6 % Normal 11.0-15.0 [facility] Comment on above: Performed By: #### C BC ####[facility] [address]wpibcbls[address] [place], [place] [address]DrOtto Reis Hematocrit (Bld) [Volume fraction] 33.1 % Critically low 36.0-48.0 [facility] Comment on above: Performed By: #### C BC ####[facility] Wcpegqvvvk[address] [place], [place] [address]DrOtto Reis Hemoglobin (Bld) [Mass/Vol] 10.6 g/dL Critically low 12.0-16.0 [facility] Comment on above: Performed By: #### C BC ####[facility] [address]lszpfhkok[address] [place], [place] [address]DrOtto Reis IG # 0.12 10e3/ul Critically high 0.00-0.03 [facility] Comment on above: Performed By: #### C BC ####[facility] Mjezgjatel[address] [place], [place] [address]DrOtto Reis IG % 1.1 % Critically high 0.0-0.5 [facility] Comment on above: Performed By: #### C BC ####[facility] Sikheeplak[address] [place], [place] [address]DrOtto Reis LYMPH # 1.6 103/ul Normal 1.2-3.8 [facility] Comment on above: Performed By: #### C BC ####[facility] F[address]qszjaez[address] [place], [place] [address]DrOtto Reis Lymphocytes/100 WBC (Bld) 14.6 % Critically low 20.5-60.0 [facility] Comment on above: Performed By: #### C BC ####[facility] [address]qxyhqjme[address] [place], [place] [address]DrOtto Reis MANUAL DIFF REQ NO Normal [facility] Comment on above: Performed By: #### C BC ####[facility] [address] [place] [address]DrOtto Reis MCH (RBC) [Entitic mass] 29.0 pg Normal 26.7-34.0 [facility] Comment on above: Performed By: #### C BC ####[facility] Shdsxvvjjn[address] [place], [place] [address]DrOtto Reis MCHC (RBC) [Mass/Vol] 32.0 g/dL Normal 29.9-35.2 [facility] Comment on above: Performed By: #### C BC ####[facility] Jegssmukki[address] [place], [place] [address]DrOtto Reis MCV (RBC) [Entitic vol] 90.4 fL Normal 81.0-99.0 [facility] Comment on above: Performed By: #### C BC ####[facility] Gemxcoezbf[address] [place], [place] [address]DrOtto Reis MONO # 1.4 103/ul Critically high 0.3-0.8 [facility] Comment on above: Performed By: #### C BC ####[facility] Szx[address]zzjzoy[address] [place], [place] [address]DrOtto Reis Monocytes/100 WBC (Bld) 12.8 % Critically high 1.7-12.0 [facility] Comment on above: Performed By: #### C BC ####[facility] [address]qlqhpofn[address] [place], [place] [address]DrOtto Reis NEUT # 7.5 103/ul Critically high 1.4-6.5 [facility] Comment on above: Performed By: #### C BC ####[facility] [address]nrmkmoc[address] [place], [place] [address]DrOtto Reis Neutrophils/100 WBC (Bld) 68.6 % Normal 43.0-75.0 [facility] Comment on above: Performed By: #### C BC ####[facility] Dsekcmzsuv[address] [place], [place] [address]DrOtto Reis Platelet mean volume (Bld) [Entitic vol] 10.3 fL Normal 9.5-13.5 [facility] Comment on above: Performed By: #### C BC ####[facility] Ltqbhxdvdb[address] [place] [address]Dr. Swathi Reis PLT 387 103/ul Normal 150-450 [facility] Comment on above: Performed By: #### C BC ####[facility] Yktzgfiaix[address] [place], [place] [address]Dr. Swathi Reis RBC 3.66 106/ul Critically low 4.20-5.[address] [facility] Comment on above: Performed By: #### C BC ####[facility] Oqbkylxdbf[address] [place], [place] [address]Dr. Swathi Reis WBC 11.0 103/ul Normal 4.0-11.0 [facility] Comment on above: Performed By: #### C BC ####[facility] Ictakcomyn[address] [place], [place] [address]Dr. Swathi Reis DIGOXINon 08-23-2022 DIG 1.6 ng/mL Normal 0.9-2.0 [facility] Comment on above: Performed By: #### D IG ####[facility] Ndhfwoqhwa[address] [place], [place] [address]Dr. Swathi Reis POINT OF CARE GLUCOSEon Glucose [Mass/Vol] 167 mg/dL Critically high 74-106 [facility] Comment on above: Performed By: #### P OCGLUC ####[facility] Ajeiucfcvr9[address] [place], [place] [address]Dr. Swathi Reis Glucose [Mass/Vol] 114 mg/dL Critically high 74-106 [facility] Comment on above: Performed By: #### P OCGLUC ####[facility] Envixwstfc7[address] [place], [place] [address]Dr. Swathi Reis Glucose [Mass/Vol] 272 mg/dL Critically high 74-106 [facility] Comment on above: Performed By: #### P OCGLUC ####[facility] Oauvjqdrsv[address] [place], [place] [address]Dr. Swathi Reis PROF 14(COMP METB)on 022 Albumin [Mass/Vol] 2.4 g/dL Critically low 3.4-5.0 [facility] Comment on above: Performed By: #### B PANAMA HAT SMEARER, CMP ####[facility] Vatpinwwkp3[address] [place] [id number]. Swathi Reis Albumin/Globulin [Mass ratio] 0.5 {ratio} Normal [facility] Comment on above: Performed By: #### B PANAMA HAT SMEARER, CMP ####[facility] Wraenafabn5[address] [place] [address]Dr. Swathi Reis ALP [Catalytic activity/Vol] 104 U/L Normal 46-116 [facility] Comment on above: Performed By: #### B PANAMA HAT SMEARER, CMP ####[facility] Hqglqeamfd1074 [place] [address]Dr. Swathi Reis ALT [Catalytic activity/Vol] 7 U/L Critically low 14-59 [facility] Comment on above: Performed By: #### B PANAMA HAT SMEARER, CMP ####[facility] Degvmxmepj3[address] [place] [address]Dr. Swathi Reis Anion gap [Moles/Vol] 11.1 mmol/L Normal [facility] Comment on above: Performed By: #### B PANAMA HAT SMEARER, CMP ####[facility] Qmpbjuskcp7347 [place] [address]Dr. Swathi Reis AST [Catalytic activity/Vol] 19 U/L Normal 15-37 [facility] Comment on above: Performed By: #### B PANAMA HAT SMEARER, CMP ####[facility] Rodqkazeut3615 [place] [address]Dr. Swathi Reis Bilirubin [Mass/Vol] 0.4 mg/dL Normal 0.2-1.0 [facility] Comment on above: Performed By: #### B PANAMA HAT SMEARER, CMP ####[facility] Pfqzztykrh9[address] [place] [address]Dr. Swathi Reis Calcium [Mass/Vol] 9.5 mg/dL Normal 8.5-10.1 [facility] Comment on above: Performed By: #### B PANAMA HAT SMEARER, CMP ####[facility] Flulwpflwq1136 [place] [address]Dr. Swathi Reis Chloride [Moles/Vol] 101 mmol/L Normal 98-107 [facility] Comment on above: Performed By: #### B PANAMA HAT SMEARER, CMP ####[facility] Ujqtcsquan5[address] [place] [address]Dr. Swathi Reis CO2 [Moles/Vol] 30.7 mmol/L Normal 21.0-32.0 [facility] Comment on above: Performed By: #### B PANAMA HAT SMEARER, CMP ####[facility] Euvojfrrju30[address] [place] [address]Dr. Swathi Reis Creatinine [Mass/Vol] 1.53 mg/dL Critically high 0.55-1.02 [facility] Comment on above: Performed By: #### B PANAMA HAT SMEARER, CMP ####[facility] Oadnfdgonr[address] [place], [place] [address]Dr. Swathi Chato EGFR-AF FIJIAN 40 mL/min/1.73m2 Critically low >=60 [facility] Comment on above: Performed By: #### B PANAMA HAT SMEARER, CMP ####[facility] Lxbppvtunr[address] [place], [place] [address]Dr. Swathi Reis EGFR-NON AF FIJIAN 33 mL/min/1.73m2 Critically low >=60 [facility] Comment on above: Performed By: #### B PANAMA HAT SMEARER, CMP ####[facility] Ssulgofxau[address] [place], [place] [address]Dr. Swathi Chato Globulin (S) [Mass/Vol] 4.9 g/dL Normal [facility] Comment on above: Performed By: #### B PANAMA HAT SMEARER, CMP ####[facility] Nxbkrpmtnz8068 [place] [address]Dr. Swathi Chato Glucose [Mass/Vol] 139 mg/dL Critically high 74-106 [facility] Comment on above: Performed By: #### B PANAMA HAT SMEARER, CMP ####[facility] Cxgburhnwh7216[address] [place], [place] [address]Dr. Inessatracy Chato Potassium [Moles/Vol] 3.8 mmol/L Normal 3.5-5.1 [facility] Comment on above: Performed By: #### B PANAMA HAT SMEARER, CMP ####[facility] Zucvtklobz33[address] [place], [place] [address]Dr. Swathi Reis Protein [Mass/Vol] 7.3 g/dL Normal 6.4-8.2 [facility] Comment on above: Performed By: #### B PANAMA HAT SMEARER, CMP ####[facility] Eynhoeuezu7[address] [place], [place] [address]Dr. Swathi Reis Sodium [Moles/Vol] 139 mmol/L Normal 136-145 [facility] Comment on above: Performed By: #### B PANAMA HAT SMEARER, CMP ####[facility] Grzvhgmjgy80[address] [place], [place] [address]Dr. Swathi Reis Urea nitrogen [Mass/Vol] 26.0 mg/dL Critically high 7.0-18.0 [facility] Comment on above: Performed By: #### B PANAMA HAT SMEARER, CMP ####[facility] Jzcqkdvfek[address] [place], [place] [address]Dr. Swathi Reis Urea nitrogen/Creatinine [Mass ratio] 17.0 mg/mg Normal [facility] Comment on above: Performed By: #### B PANAMA HAT SMEARER, CMP ####[facility] Ymafwasmgy[address] [place], [place] [address]Dr. Swathi Reis BNPon 08-22-2022 Natriuretic peptide B (Bld) [Mass/Vol] 3439.0 pg/mL Critically high <=1,800.0 [facility] Comment on above: Performed By: #### C MP, BNP ####[facility] Bjltdjervb[address] [place], [place] [address]Dr. Swathi Reis CBC AUTO DIFFon 08-22-2022 BASO # 0.1 103/ul Normal 0.0-0.1 [facility] Comment on above: Performed By: #### C BC ####[facility] Saibmrnpwh02[address] [place], [place] [address]Dr. Swathi Reis Basophils/100 WBC (Bld) 0.6 % Normal 0.2-2.0 [facility] Comment on above: Performed By: #### C BC ####[facility] Yqkyevpzxz7494 [place] [id number]. Swathi Reis EO # 0.3 103/ul Normal 0.0-0.7 [facility] Comment on above: Performed By: #### C BC ####[facility] Mptcweypcg0475 [place] [phone]. Swathi Reis Eosinophils/100 WBC (Bld) 2.1 % Normal 0.9-7.0 [facility] Comment on above: Performed By: #### C BC ####[facility] Sqtkaheswy9379 [place] [address]Dr. Swathi Reis Erythrocyte distribution width (RBC) [Ratio] 13.8 % Normal 11.0-15.0 [facility] Comment on above: Performed By: #### C BC ####[facility] Gihuaukboo57[address] [place] [address]Dr. Swathi Reis Hematocrit (Bld) [Volume fraction] 31.9 % Critically low 36.0-48.0 [facility] Comment on above: Performed By: #### C BC ####[facility] Xffrwatgce4168 [place] [phone]. Swathi Reis Hemoglobin (Bld) [Mass/Vol] 10.2 g/dL Critically low 12.0-16.0 [facility] Comment on above: Performed By: #### C BC ####[facility] Bodacyoqaw[address] [place] [address]Dr. Swathi Reis IG # 0.10 10e3/ul Critically high 0.00-0.03 The [facility] Comment on above: Performed By: #### C BC ####[facility] Skupqyewjt3512 [place] [phone]. Swathi Reis IG % 0.8 % Critically high 0.0-0.5 The [facility] Comment on above: Performed By: #### C BC ####[facility] Tsbljfkfna[address] [place], [place] [address]Dr. Inessatracy Reis LYMPH # 1.2 103/ul Normal 1.2-3.8 [facility] Comment on above: Performed By: #### C BC ####[facility] Ewzdkoxjqx9676 [place] [phone]. Swathi Chato Lymphocytes/100 WBC (Bld) 9.6 % Critically low 20.5-60.0 [facility] Comment on above: Performed By: #### C BC ####[facility] Xvamcpryfk6815 [place] [phone]. Swathi Chato MANUAL DIFF REQ NO Normal [facility] Comment on above: Performed By: #### C BC ####[facility] Pmnjqgeysj5803 [place] [phone]. Swathi Chato MCH (RBC) [Entitic mass] 28.7 pg Normal 26.7-34.0 [facility] Comment on above: Performed By: #### C BC ####[facility] Cltnhutbkd1254 [place] [address]Dr. Swathi Chato MCHC (RBC) [Mass/Vol] 32.0 g/dL Normal 29.9-35.2 [facility] Comment on above: Performed By: #### C BC ####[facility] Bzlzlvssvi0193 [place] [phone]. Swathi Chato MCV (RBC) [Entitic vol] 89.9 fL Normal 81.0-99.0 [facility] Comment on above: Performed By: #### C BC ####[facility] Gkguxqtndo5576 [place] [phone]. Swathi Reis MONO # 1.0 103/ul Critically high 0.3-0.8 The [facility] Comment on above: Performed By: #### C BC ####[facility] Hkrysusgvu5737 [place] [phone]. Inessatracy Reis Monocytes/100 WBC (Bld) 8.5 % Normal 1.7-12.0 The [facility] Comment on above: Performed By: #### C BC ####[facility] Qowivjbkwn[address] [place], [place] [address]Dr. Swathi Reis NEUT # 9.6 103/ul Critically high 1.4-6.5 The [facility] Comment on above: Performed By: #### C BC ####[facility] Tryhdflrmv2728 [place] [phone]. Swathi Reis Neutrophils/100 WBC (Bld) 78.4 % Critically high 43.0-75.0 [facility] Comment on above: Performed By: #### C BC ####[facility] Dtnvpenxir4794 [place] [phone]. Swathi Reis Platelet mean volume (Bld) [Entitic vol] 10.4 fL Normal 9.5-13.5 [facility] Comment on above: Performed By: #### C BC ####[facility] Sdiahraxlw4637 [place] [phone]. Swathi Reis PLT 338 103/ul Normal 150-450 [facility] Comment on above: Performed By: #### C BC ####[facility] Dhilzwhyas6111 [place] [phone]. Swathi Reis RBC 3.55 106/ul Critically low 4.20-5.[address] [facility] Comment on above: Performed By: #### C BC ####[facility] Jxsxsjopni8182 [place] [phone]. Swathi Reis WBC 12.2 103/ul Critically high 4.0-11.0 [facility] Comment on above: Performed By: #### C BC ####[facility] Qvbhlcpoyx3169 [place] [phone]. Swathi Reis DIGOXINon 08-22-2022 DIG 1.5 ng/mL Normal 0.9-2.0 [facility] Comment on above: Performed By: #### D IG ####[facility] Dxrugcvihp3922 [place] [phone]. Swathi Reis POINT OF CARE GLUCOSEon 07-26 Glucose [Mass/Vol] 222 mg/dL Critically high 74-106 [facility] Comment on above: Performed By: #### P OCGLUC ####[facility] Weqjmxzcvh4825 [place] [address]Dr. Swathi Reis Glucose [Mass/Vol] 133 mg/dL Critically high 74-106 [facility] Comment on above: Performed By: #### P OCGLUC ####[facility] Xqrxjxjvlu4413 [place] [address]Dr. Swathi Reis Glucose [Mass/Vol] 299 mg/dL Critically high 74-106 [facility] Comment on above: Performed By: #### P OCGLUC ####[facility] Omvrvvntzp9749 [place] [address]Dr. Swathi Reis Glucose [Mass/Vol] 151 mg/dL Critically high 74-106 [facility] Comment on above: Performed By: #### P OCGLUC ####[facility] Glnvushnvb4989 [place] [address]Dr. Swathi Reis PROF 14(COMP METB)on 022 Albumin [Mass/Vol] 2.4 g/dL Critically low 3.4-5.0 [facility] Comment on above: Performed By: #### C MP, BNP ####[facility] Btnxycothn[address] [place], [place] [address]Dr. Swathi Reis Albumin/Globulin [Mass ratio] 0.6 {ratio} Normal [facility] Comment on above: Performed By: #### C MP, BNP ####[facility] Kqatpenfap[address] [place], [place] [address]Dr. Swathi Reis ALP [Catalytic activity/Vol] 98 U/L Normal 46-116 [facility] Comment on above: Performed By: #### C MP, BNP ####[facility] Fcfkpclzhw75[address] [place], [place] [address]Dr. Swathi Reis ALT [Catalytic activity/Vol] 13 U/L Critically low 14-59 [facility] Comment on above: Performed By: #### C MP, BNP ####[facility] Iypyxoevrn[address] [place], [place] [address]Dr. Swathi Reis Anion gap [Moles/Vol] 12.4 mmol/L Normal [facility] Comment on above: Performed By: #### C MP, BNP ####[facility] Wtzckdqqpt813[address] [place], [place] [address]Dr. Swathi Reis AST [Catalytic activity/Vol] 23 U/L Normal 15-37 [facility] Comment on above: Performed By: #### C MP, BNP ####[facility] Iokhhwecws58[address] [place] [address]Dr. Swathi Reis Bilirubin [Mass/Vol] 0.6 mg/dL Normal 0.2-1.0 [facility] Comment on above: Performed By: #### C MP, BNP ####[facility] Kkjvdgvuoe639[address] [place], [place] [address]Dr. Swathi Reis Calcium [Mass/Vol] 8.9 mg/dL Normal 8.5-10.1 [facility] Comment on above: Performed By: #### C MP, BNP ####[facility] Gyfwgfqyug[address] [place], [place] [address]Dr. Swathi Reis Chloride [Moles/Vol] 100 mmol/L Normal 98-107 [facility] Comment on above: Performed By: #### C MP, BNP ####[facility] Zbbfdujebc9[address] [place], [place] [address]Dr. Swathi Reis CO2 [Moles/Vol] 30.6 mmol/L Normal 21.0-32.0 [facility] Comment on above: Performed By: #### C MP, BNP ####[facility] Nohdjtnvqb37[address] [place], [place] [address]Dr. Swathi Chato Creatinine [Mass/Vol] 1.54 mg/dL Critically high 0.55-1.02 [facility] Comment on above: Performed By: #### C MP, BNP ####[facility] Nloyrcoojy[address] [place], [place] [address]Dr. Swathi Chaot EGFR-AF FIJIAN 40 mL/min/1.73m2 Critically low >=60 [facility] Comment on above: Performed By: #### C MP, BNP ####[facility] Izjytpvuga[address] [place], [place] [address]Dr. Inessatracy Chato EGFR-NON AF FIJIAN 33 mL/min/1.73m2 Critically low >=60 [facility] Comment on above: Performed By: #### C MP, BNP ####[facility] Qxizaqcvmm658[address] [place], [place] [address]Dr. Swathi Reis Globulin (S) [Mass/Vol] 3.9 g/dL Normal [facility] Comment on above: Performed By: #### C MP, BNP ####[facility] Dtcgggehza458[address] [place], [place] [address]Dr. Swathi Reis Glucose [Mass/Vol] 143 mg/dL Critically high 74-106 [facility] Comment on above: Performed By: #### C MP, BNP ####[facility] Zbnchotpqp117[address] [place], [place] [address]Dr. Swathi Reis Potassium [Moles/Vol] 4.0 mmol/L Normal 3.5-5.1 [facility] Comment on above: Performed By: #### C MP, BNP ####[facility] Nuckesgwms[address] [place], [place] [address]Dr. Swathi Reis Protein [Mass/Vol] 6.3 g/dL Critically low 6.4-8.2 [facility] Comment on above: Performed By: #### C MP, BNP ####[facility] Ocagfcnfeq[address] [place], [place] [address]Dr. Swathi Reis Sodium [Moles/Vol] 139 mmol/L Normal 136-145 [facility] Comment on above: Performed By: #### C MP, BNP ####[facility] Nxlfvhdhrp166[address] [place], [place] [address]Dr. Swathi Reis Urea nitrogen [Mass/Vol] 27.0 mg/dL Critically high 7.0-18.0 [facility] Comment on above: Performed By: #### C MP, BNP ####[facility] Sfduiraweo[address] [place], [place] [address]Dr. Swathi Reis Urea nitrogen/Creatinine [Mass ratio] 17.5 mg/mg Normal [facility] Comment on above: Performed By: #### C MP, BNP ####[facility] Lvplimppup9[address] [place], [place] [address]Dr. Swathi Reis VANCOMYCIN TROUGHon 30-20 22 VANCOMYCIN TROUGH 13.2 ug/ml Normal 5.0-20.0 [facility] Comment on above: Performed By: #### V ANCT ####[facility] Bbulivqkty6451 [place] [address]Dr. Swathi Reis XR CHEST 2 Von 08-22-2022 XR CHEST 2 V Normal [facility] BNPon 08-21-2022 Natriuretic peptide B (Bld) [Mass/Vol] 3683.0 pg/mL Critically high <=1,800.0 [facility] Comment on above: Performed By: #### C MP, BNP ####[facility] Depkpvogrz[address] [place], [place] [address]Dr. Swathi Chato CBC AUTO DIFFon 08-21-2022 BASO # 0.1 103/ul Normal 0.0-0.1 [facility] Comment on above: Performed By: #### C BC ####[facility] [address]sjzjhvoea[address] [place], [place] [address]Dr. Swathi Reis Basophils/100 WBC (Bld) 0.4 % Normal 0.2-2.0 [facility] Comment on above: Performed By: #### C BC ####[facility] Tjiuwupzhc[address] [place], [place] [address]Dr. Swathi Reis EO # 0.2 103/ul Normal 0.0-0.7 [facility] Comment on above: Performed By: #### C BC ####[facility] Lxcdgydhyg[address] [place], [place] [address]Dr. Swathi Reis Eosinophils/100 WBC (Bld) 1.8 % Normal 0.9-7.0 [facility] Comment on above: Performed By: #### C BC ####[facility] Ehmxrviaxb[address] [place], [place] [address]Dr. Swathi Reis Erythrocyte distribution width (RBC) [Ratio] 14.4 % Normal 11.0-15.0 [facility] Comment on above: Performed By: #### C BC ####[facility] Zfasjbxeia[address] [place], [place] [address]Dr. Swathi Reis Hematocrit (Bld) [Volume fraction] 33.5 % Critically low 36.0-48.0 [facility] Comment on above: Performed By: #### C BC ####[facility] [address]yunxjcesz[address] [place], [place] [id number]. Swathi Reis Hemoglobin (Bld) [Mass/Vol] 10.8 g/dL Critically low 12.0-16.0 [facility] Comment on above: Performed By: #### C BC ####[facility] Bpscpgxaxo7473 [place] [address]Dr. Swathi Reis IG # 0.06 10e3/ul Critically high 0.00-0.03 [facility] Comment on above: Performed By: #### C BC ####[facility] Dulpbxjzsb6771 [place] [address]Dr. Swathi Reis IG % 0.5 % Normal 0.0-0.5 [facility] Comment on above: Performed By: #### C BC ####[facility] Tcicwrbydb4408 [place] [address]Dr. Swathi Reis LYMPH # 0.9 103/ul Critically low 1.2-3.8 The [facility] Comment on above: Performed By: #### C BC ####[facility] Hnhreiobwo1014 [place] [address]Dr. Swathi Reis Lymphocytes/100 WBC (Bld) 7.2 % Critically low 20.5-60.0 [facility] Comment on above: Performed By: #### C BC ####[facility] Bvxmbghzmg9917 [place] [address]Dr. Swathi Reis MANUAL DIFF REQ NO Normal [facility] Comment on above: Performed By: #### C BC ####[facility] Cmiahqvqky6916 [place] [address]Dr. Swathi Reis MCH (RBC) [Entitic mass] 29.0 pg Normal 26.7-34.0 [facility] Comment on above: Performed By: #### C BC ####[facility] Lrmjumtwqe2529 [place] [address]Dr. Swathi Reis MCHC (RBC) [Mass/Vol] 32.2 g/dL Normal 29.9-35.2 [facility] Comment on above: Performed By: #### C BC ####[facility] Xpcjvrpchy[address] [place], [place] [address]Dr. Swathi Reis MCV (RBC) [Entitic vol] 90.1 fL Normal 81.0-99.0 [facility] Comment on above: Performed By: #### C BC ####[facility] Hqzkhfoxvp1855 [place] [address]Dr. Swathi Reis MONO # 0.8 103/ul Normal 0.3-0.8 [facility] Comment on above: Performed By: #### C BC ####[facility] Oijisrjpsh9021 [place] [address]Dr. Swathi Chato Monocytes/100 WBC (Bld) 6.3 % Normal 1.7-12.0 [facility] Comment on above: Performed By: #### C BC ####[facility] Elnfudyugu2198 [place] [address]Dr. Swathi Reis NEUT # 10.7 103/ul Critically high 1.4-6.5 [facility] Comment on above: Performed By: #### C BC ####[facility] Zpartjwjwd1212 [place] [address]Dr. Swathi Chato Neutrophils/100 WBC (Bld) 83.8 % Critically high 43.0-75.0 [facility] Comment on above: Performed By: #### C BC ####[facility] [address]afnqvttj[address] [place], [place] [address]Dr. Swathi Reis Platelet mean volume (Bld) [Entitic vol] 10.7 fL Normal 9.5-13.5 [facility] Comment on above: Performed By: #### C BC ####[facility] Nbirurtuqi8829 [place] [address]Dr. Swathi Chato PLT 324 103/ul Normal 150-450 [facility] Comment on above: Performed By: #### C BC ####[facility] Bdizphhlbt04[address] [place], [place] [address]Dr. Swathi Chato RBC 3.72 106/ul Critically low 4.20-5.40 The [facility] Comment on above: Performed By: #### C BC ####[facility] Memnuanohx824[address] [place], [place] [address]Dr. Swathi Reis WBC 12.8 103/ul Critically high 4.0-11.0 [facility] Comment on above: Performed By: #### C BC ####[facility] Clbptkovjz9525 [place] [address]Dr. Swathi Reis DIGOXINon 08-21-2022 DIG 1.3 ng/mL Normal 0.9-2.0 [facility] Comment on above: Performed By: #### D IG ####[facility] Vaqtikqisl9330 [place] [address]Dr. Swathi Reis POINT OF CARE GLUCOSEon 07-25 Glucose [Mass/Vol] 129 mg/dL Critically high 74-106 [facility] Comment on above: Performed By: #### P OCGLUC ####[facility] Teyjdqjate6277 [place] [address]Dr. Swathi Reis Glucose [Mass/Vol] 145 mg/dL Critically high -106 [facility] Comment on above: Performed By: #### P OCGLUC ####[facility] Tjopdqczwz7655 [place] [address]Dr. Swathi Reis Glucose [Mass/Vol] 366 mg/dL Critically high -106 [facility] Comment on above: Performed By: #### P OCGLUC ####[facility] Mdukhdoivj2292 [place] [address]Dr. Swathi Reis Glucose [Mass/Vol] 149 mg/dL Critically high -106 [facility] Comment on above: Performed By: #### P OCGLUC ####[facility] Uxchzfvvoi5829 [place] [address]Dr. Swathi Reis PROF 14(COMP METB)on 022 Albumin [Mass/Vol] 2.4 g/dL Critically low 3.4-5.0 [facility] Comment on above: Performed By: #### C MP, BNP ####[facility] Wmfalvgzxd1328 [place] [address]Dr. Swathi Reis Albumin/Globulin [Mass ratio] 0.5 {ratio} Normal [facility] Comment on above: Performed By: #### C MP, BNP ####[facility] [address]ijtjoihau[address] [place], [place] [address]Dr. Swathi Reis ALP [Catalytic activity/Vol] 93 U/L Normal 46-116 [facility] Comment on above: Performed By: #### C MP, BNP ####[facility] Wybniskuvg[address] [place], [place] [address]Dr. Swathi Reis ALT [Catalytic activity/Vol] 11 U/L Critically low 14-59 [facility] Comment on above: Performed By: #### C MP, BNP ####[facility] Vmjuhbuxfe[address] [place], [place] [address]Dr. Swathi Reis Anion gap [Moles/Vol] 9.8 mmol/L Normal [facility] Comment on above: Performed By: #### C MP, BNP ####[facility] Semwcmgzoc[address] [place], [place] [address]Dr. Swathi Reis AST [Catalytic activity/Vol] 14 U/L Critically low 15-37 [facility] Comment on above: Performed By: #### C MP, BNP ####[facility] Sstzfrgfaw[address] [place], [place] [address]Dr. Swathi Reis Bilirubin [Mass/Vol] 0.6 mg/dL Normal 0.2-1.0 [facility] Comment on above: Performed By: #### C MP, BNP ####[facility] Nflzlcqhon359[address] [place], [place] [address]Dr. Swathi Reis Calcium [Mass/Vol] 9.4 mg/dL Normal 8.5-10.1 [facility] Comment on above: Performed By: #### C MP, BNP ####[facility] Kczumcsvls0317[address] [place], [place] [address]Dr. Swathi Reis Chloride [Moles/Vol] 102 mmol/L Normal 98-107 [facility] Comment on above: Performed By: #### C MP, BNP ####[facility] Cyzgihpcsw9601[address] [place], [place] [address]Dr. Swathi Reis CO2 [Moles/Vol] 33.4 mmol/L Critically high 21.0-32.0 [facility] Comment on above: Performed By: #### C MP, BNP ####[facility] Unoesbzjuv[address] [place] [address]Dr. Swathi Reis Creatinine [Mass/Vol] 1.79 mg/dL Critically high 0.55-1.02 [facility] Comment on above: Performed By: #### C MP, BNP ####[facility] Ljicniecqq13[address] [place], [place] [address]Dr. Swathi Reis EGFR-AF FIJIAN 33 mL/min/1.73m2 Critically low >=60 [facility] Comment on above: Performed By: #### C MP, BNP ####[facility] Dmyhbtsplf2925[address] [place], [place] [address]Dr. Swathi Chato EGFR-NON AF FIJIAN 27 mL/min/1.73m2 Critically low >=60 [facility] Comment on above: Performed By: #### C MP, BNP ####[facility] Umtucsoplm260[address] [place], [place] [address]Dr. Swathi Chato Globulin (S) [Mass/Vol] 4.9 g/dL Normal [facility] Comment on above: Performed By: #### C MP, BNP ####[facility] Cauopwirri056[address] [place], [place] [address]Dr. Swathi Reis Glucose [Mass/Vol] 121 mg/dL Critically high 74-106 [facility] Comment on above: Performed By: #### C MP, BNP ####[facility] Kcjdvrwaxf218[address] [place], [place] [address]Dr. Swathi Chato Potassium [Moles/Vol] 3.2 mmol/L Critically low 3.5-5.1 [facility] Comment on above: Performed By: #### C MP, BNP ####[facility] Zcolaryyqx4880[address] [place], [place] [address]Dr. Swathi Chato Protein [Mass/Vol] 7.3 g/dL Normal 6.4-8.2 [facility] Comment on above: Performed By: #### C MP, BNP ####[facility] Zkzfsintit7[address] [place], [place] [address]Dr. Swathi Chato Sodium [Moles/Vol] 142 mmol/L Normal 136-145 [facility] Comment on above: Performed By: #### C MP, BNP ####[facility] Ckprpdahyo4[address] [place] [address]Dr. Swathi Reis Urea nitrogen [Mass/Vol] 32.0 mg/dL Critically high 7.0-18.0 [facility] Comment on above: Performed By: #### C MP, BNP ####[facility] Jjsyoujonf1795[address] [place], [place] [address]Dr. Swathi Reis Urea nitrogen/Creatinine [Mass ratio] 17.9 mg/mg Normal [facility] Comment on above: Performed By: #### C MP, BNP ####[facility] Wjwbxtphqs8[address] [place], [place] [address]Dr. Swathi Reis BNPon 08-20-2022 Natriuretic peptide B (Bld) [Mass/Vol] 7302.0 pg/mL Critically high <=1,800.0 [facility] Comment on above: Performed By: #### C MP, BNP ####[facility] Twzlwfcfwt723[address] [place], [place] [address]Dr. Swathi Reis C. DIFF PCRon 08-20-2022 C. DIFFICILE PCR Positive Critically abnormal NEGATIVE [facility] Comment on above: Performed By: #### C DIFPOC ####[facility] Orcshrjyyq649[address] [place], [place] [address]Dr. Swathi Reis CBC AUTO DIFFon 08-20-2022 BASO # 0.1 103/ul Normal 0.0-0.1 [facility] Comment on above: Performed By: #### C BC ####[facility] Jrkidajebi490[address] [place], [place] [address]Dr. Swathi Chato Basophils/100 WBC (Bld) 0.5 % Normal 0.2-2.0 [facility] Comment on above: Performed By: #### C BC ####[facility] Qawzotnnef246[address] [place], [place] [address]Dr. Inessatracy Chato EO # 0.1 103/ul Normal 0.0-0.7 [facility] Comment on above: Performed By: #### C BC ####[facility] Hquvhybyvq9982 [place] [id number]. Swathi Reis Eosinophils/100 WBC (Bld) 0.3 % Critically low 0.9-7.0 [facility] Comment on above: Performed By: #### C BC ####[facility] Ywxjclicau2384 [place] [address]Dr. Swathi Reis Erythrocyte distribution width (RBC) [Ratio] 14.5 % Normal 11.0-15.0 [facility] Comment on above: Performed By: #### C BC ####[facility] Jgbxheehfy9627[address] [place], [place] [address]Dr. Swathi Reis Hematocrit (Bld) [Volume fraction] 31.4 % Critically low 36.0-48.0 [facility] Comment on above: Performed By: #### C BC ####[facility] Frakvwmfhr[address] [place], [place] [address]Dr. Swathi Reis Hemoglobin (Bld) [Mass/Vol] 10.3 g/dL Critically low 12.0-16.0 [facility] Comment on above: Performed By: #### C BC ####[facility] Osrseurnrg[address] [place], [place] [address]Dr. Swathi Reis IG # 0.12 10e3/ul Critically high 0.00-0.03 [facility] Comment on above: Performed By: #### C BC ####[facility] Megloyuzle157[address] [place], [place] [address]Dr. Swathi Reis IG % 0.7 % Critically high 0.0-0.5 [facility] Comment on above: Performed By: #### C BC ####[facility] Oxqklfkbfj4939[address] [place], [place] [address]Dr. Swathi Reis LYMPH # 0.9 103/ul Critically low 1.2-3.8 [facility] Comment on above: Performed By: #### C BC ####[facility] Chrdouskqi409[address] [place], [place] [address]Dr. Swathi Reis Lymphocytes/100 WBC (Bld) 5.6 % Critically low 20.5-60.0 [facility] Comment on above: Performed By: #### C BC ####[facility] Yldggtbiaq5010 [place] [phone]. Swathi Reis MANUAL DIFF REQ NO Normal [facility] Comment on above: Performed By: #### C BC ####[facility] Rumqodwxpm0837 [place] [phone]. Swathi Reis MCH (RBC) [Entitic mass] 29.3 pg Normal 26.7-34.0 [facility] Comment on above: Performed By: #### C BC ####[facility] Jpgcttwsxq3455 [place] [address]Dr. Swathi Reis MCHC (RBC) [Mass/Vol] 32.8 g/dL Normal 29.9-35.2 [facility] Comment on above: Performed By: #### C BC ####[facility] Lgbwmdcgyq165[address] [place], [place] [address]Dr. Swathi Reis MCV (RBC) [Entitic vol] 89.5 fL Normal 81.0-99.0 [facility] Comment on above: Performed By: #### C BC ####[facility] Afuukhrjos[address] [place], [place] [address]Dr. Swathi Reis MONO # 0.9 103/ul Critically high 0.3-0.8 [facility] Comment on above: Performed By: #### C BC ####[facility] Atdbtntjfl44[address] [place], [place] [address]Dr. Swathi Reis Monocytes/100 WBC (Bld) 5.6 % Normal 1.7-12.0 [facility] Comment on above: Performed By: #### C BC ####[facility] Cpgqwkspdl8998 [place] [address]DrOtto Reis NEUT # 14.1 103/ul Critically high 1.4-6.5 [facility] Comment on above: Performed By: #### C BC ####[facility] Lpaxpjnatd7806 [place] [address]Dr. Swathi Reis Neutrophils/100 WBC (Bld) 87.3 % Critically high 43.0-75.0 [facility] Comment on above: Performed By: #### C BC ####[facility] Fqxmludqsm8108 [place] [phone]. Swathi Reis Platelet mean volume (Bld) [Entitic vol] 10.8 fL Normal 9.5-13.5 [facility] Comment on above: Performed By: #### C BC ####[facility] Zazznhuesb6302 [place] [phone]. Swathi Reis PLT 303 103/ul Normal 150-450 [facility] Comment on above: Performed By: #### C BC ####[facility] Kebzxjokvf5302 [place], [place] [address]Dl. Swathi Reis RBC 3.51 106/ul Critically low 4.20-5.[address] [facility] Comment on above: Performed By: #### C BC ####[facility] Fbqtncvndr9884 [place] [phone]. Swathi Reis WBC 16.2 103/ul Critically high 4.0-11.0 [facility] Comment on above: Performed By: #### C BC ####[facility] Njlpnuwpnp7638 [place] [phone]. Swathi Reis DIGOXINon 08-20-2022 DIG 1.2 ng/mL Normal 0.9-2.0 [facility] Comment on above: Performed By: #### D IG ####[facility] Wgccngulwn9310 [place] [phone]. Swathi Reis POINT OF CARE GLUCOSEon 07-25 Glucose [Mass/Vol] 180 mg/dL Critically high 74-106 [facility] Comment on above: Performed By: #### P OCGLUC ####[facility] Alrmbltasw7605 [place] [phone]. Swathi Reis Glucose [Mass/Vol] 115 mg/dL Critically high 74-106 [facility] Comment on above: Performed By: #### P OCGLUC ####[facility] Mcbwmxmfqm4431 [place] [phone]. Swathi Reis Glucose [Mass/Vol] 235 mg/dL Critically high 74-106 [facility] Comment on above: Performed By: #### P OCGLUC ####[facility] Uqaowwdthu20[address] [place] [address]Dr. Swathi Reis PROF 14(COMP METB)on 022 Albumin [Mass/Vol] 2.5 g/dL Critically low 3.4-5.0 [facility] Comment on above: Performed By: #### C MP, BNP ####[facility] Zbfratuwtk6493 [place] [address]Dr. Swathi Reis Albumin/Globulin [Mass ratio] 0.6 {ratio} Normal [facility] Comment on above: Performed By: #### C MP, BNP ####[facility] Iwpmiobdoy[address] [place], [place] [address]Dr. Swathi Reis ALP [Catalytic activity/Vol] 69 U/L Normal 46-116 [facility] Comment on above: Performed By: #### C MP, BNP ####[facility] Yiwoizjcrb[address] [place], [place] [address]Dr. Swathi Reis ALT [Catalytic activity/Vol] 11 U/L Critically low 14-59 [facility] Comment on above: Performed By: #### C MP, BNP ####[facility] Bppoanvdhn230[address] [place], [place] [address]Dr. Swathi Reis Anion gap [Moles/Vol] 11.7 mmol/L Normal [facility] Comment on above: Performed By: #### C MP, BNP ####[facility] Riwhzorkmk724[address] [place], [place] [address]Dr. Swathi Reis AST [Catalytic activity/Vol] 18 U/L Normal 15-37 [facility] Comment on above: Performed By: #### C MP, BNP ####[facility] Eybhgzhzbw4745[address] [place], [place] [address]Dr. Swathi Reis Bilirubin [Mass/Vol] 1.0 mg/dL Normal 0.2-1.0 [facility] Comment on above: Performed By: #### C MP, BNP ####[facility] Nompunphlo87[address] [place], [place] [address]Dr. Swathi Reis Calcium [Mass/Vol] 9.2 mg/dL Normal 8.5-10.1 [facility] Comment on above: Performed By: #### C MP, BNP ####[facility] Dhkbkrdtgk855[address] [place], [place] [address]Dr. Swathi Reis Chloride [Moles/Vol] 104 mmol/L Normal 98-107 [facility] Comment on above: Performed By: #### C MP, BNP ####[facility] Hehlvvrajv1534[address] [place], [place] [address]Dr. Swathi Reis CO2 [Moles/Vol] 32.7 mmol/L Critically high 21.0-32.0 [facility] Comment on above: Performed By: #### C MP, BNP ####[facility] Sxhmdjxznh26[address] [place], [place] [address]Dr. Swathi Reis Creatinine [Mass/Vol] 1.86 mg/dL Critically high 0.55-1.02 [facility] Comment on above: Performed By: #### C MP, BNP ####[facility] Qmebfdkcog623[address] [place], [place] [address]Dr. Swathi Reis EGFR-AF FIJIAN 32 mL/min/1.73m2 Critically low >=60 [facility] Comment on above: Performed By: #### C MP, BNP ####[facility] Gzswrccikc9[address] [place], [place] [address]Dr. Swathi Reis EGFR-NON AF FIJIAN 26 mL/min/1.73m2 Critically low >=60 [facility] Comment on above: Performed By: #### C MP, BNP ####[facility] Wetghzlwym[address] [place], [place] [address]Dr. Swathi Reis Globulin (S) [Mass/Vol] 4.2 g/dL Normal [facility] Comment on above: Performed By: #### C MP, BNP ####[facility] Lerjsvykqa1795[address] [place], [place] [address]Dr. Swathi Reis Glucose [Mass/Vol] 135 mg/dL Critically high 74-106 [facility] Comment on above: Performed By: #### C MP, BNP ####[facility] Romutjcgpg4901 [place] [address]Dr. Swathi Reis Potassium [Moles/Vol] 3.4 mmol/L Critically low 3.5-5.1 [facility] Comment on above: Performed By: #### C MP, BNP ####[facility] Shkxnpcljh646[address] [place], [place] [address]Dr. Swathi Reis Protein [Mass/Vol] 6.7 g/dL Normal 6.4-8.2 [facility] Comment on above: Performed By: #### C MP, BNP ####[facility] Nkggpgsdkc757[address] [place], [place] [address]Dr. Swathi Reis Sodium [Moles/Vol] 145 mmol/L Normal 136-145 [facility] Comment on above: Performed By: #### C MP, BNP ####[facility] Xcchubaqrl8112[address] [place], [place] [address]Dr. Swathi Reis Urea nitrogen [Mass/Vol] 29.0 mg/dL Critically high 7.0-18.0 [facility] Comment on above: Performed By: #### C MP, BNP ####[facility] Kizynrlhva[address] [place], [place] [address]Dr. Swathi Reis Urea nitrogen/Creatinine [Mass ratio] 15.6 mg/mg Normal [facility] Comment on above: Performed By: #### C MP, BNP ####[facility] Fktvnhdpem[address] [place], [place] [address]Dr. Swathi Reis XR CHEST 1 Von 08-20-2022 XR CHEST 1 V Normal [facility] BLOOD GASES BTYon 08-19-2022 02 MODE BIPAP Normal [facility] Comment on above: Performed By: #### A BG ####[facility] Fnarwciobx[address] [place], [place] [address]Dr. Swathi Reis ALLENS TEST Positive Normal [facility] Comment on above: Performed By: #### A BG ####[facility] Kxldpwchpc479[address] [place], [place] [address]Dr. Swathi Reis Base excess Calc (Bld) [Moles/Vol] 0.8 mmol/L Normal -2.0-2.0 [facility] Comment on above: Performed By: #### A BG ####[facility] Tnrnkwkcbr6779 [place] [address]Dr. Swathi Reis BIPAP PRESSURE 12/6 Normal [facility] Comment on above: Performed By: #### A BG ####[facility] Kuhkrrncaa9418 [place] [address]Dr. Swathi Reis CPAP Normal [facility] Comment on above: Performed By: #### A BG ####[facility] Yxkbwwycky0527 [place] [address]Dr. Swathi Reis FIO2 90.00 % Normal [facility] Comment on above: Performed By: #### A BG ####[facility] Liijrvjsce8065[address] [place], [place] [address]Dr. Swathi Reis HCO3 (Bld) [Moles/Vol] 25.9 mmol/L Normal 22.0-26.0 [facility] Comment on above: Performed By: #### A BG ####[facility] Ozizsrdgvr632[address] [place], [place] [address]Dr. Swathi Reis LPM Normal [facility] Comment on above: Performed By: #### A BG ####[facility] Fqdwvmcepr155[address] [place], [place] [address]Dr. Swathi Reis MINUTE VOLUME Normal [facility] Comment on above: Performed By: #### A BG ####[facility] Gkfamktgtl700[address] [place], [place] [address]Dr. Swathi Reis Oxygen (Bld) [Partial pressure] 95.0 mm[Hg] Normal 80.0-100.0 [facility] Comment on above: Performed By: #### A BG ####[facility] Ppwgwvzivm299[address] [place], [place] [address]Dr. Swathi Reis Oxygen saturation in Blood 97.7 % Normal 95.0-100.0 [facility] Comment on above: Performed By: #### A BG ####[facility] Nlbqqqzxsm259[address] [place], [place] [address]Dr. Swathi Reis PCO2 44.2 mmHg Normal 35.0-45.0 [facility] Comment on above: Performed By: #### A BG ####[facility] Lcfgxbxaxv5027 [place] [address]Dr. Sawthi Reis PEEP Normal [facility] Comment on above: Performed By: #### A BG ####[facility] Pwlxekjrbm7735 [place] [address]Dr. Swathi Reis pH (Bld) 7.377 [pH] Normal 7.350-7.450 [facility] Comment on above: Performed By: #### A BG ####[facility] Pzyqintxqt4359 [place] [address]Dr. Swathi Reis PIP [facility] Comment on above: Performed By: #### A BG ####[facility] Taphtemolt74[address] [place], [place] [address]Dr. Swathi Reis PS [facility] Comment on above: Performed By: #### A BG ####[facility] Jfjoxoxwrr137[address] [place], [place] [address]Dr. Swathi Reis PUNCTURE SITE RR Normal [facility] Comment on above: Performed By: #### A BG ####[facility] Mdyhkcmjev[address] [place], [place] [address]Dr. Swathi Reis RATE [facility] Comment on above: Performed By: #### A BG ####[facility] Ojopumxvjv87[address] [place], [place] [address]Dr. Swathi Reis VENT MODE [facility] Comment on above: Performed By: #### A BG ####[facility] Arcagrncqp9[address] [place], [place] [address]Dr. Swathi Reis [place] [facility] Comment on above: Performed By: #### A BG ####[facility] Rnllzsnxne[address] [place], [place] [address]Dr. Swathi Reis BNPon 08-19-2022 Natriuretic peptide B (Bld) [Mass/Vol] 2862.0 pg/mL Critically high <=1,800.0 [facility] Comment on above: Performed By: #### L IPA, BNP ####[facility] T[address]kncmpbxr[address] [place], [place] [address]Dr. Swathi Reis CARDIAC TRINA 3-6on 2 CK [Catalytic activity/Vol] 25 U/L Critically low 26-192 [facility] Comment on above: Performed By: #### C MREP ####[facility] Doffwamogb[address] [place] [phone]. Swathi Reis CK.MB [Mass/Vol] 0.57 ng/mL Normal <=3.60 [facility] Comment on above: Performed By: #### C MREP ####[facility] Igxsyhfery9262 [place] [phone]. Swathi Reis HSTROP 16.6 pg/mL Normal 4.0-51.3 [facility] Comment on above: Result Comment: CUT- OFF POINTS HAVE BEEN ESTABLISHED BASED ON THE FOURTH UNIVERSAL DEFINITIONS OF MYOCARDIALINFARCTION. THE UPPER REFERENCE LIMIT (URL) OF TROPONIN, DEFINED THE 99TH PERCENTILE OFcTnI DISTRIBUTION IN A REFERENCE POPULATION, HAS BEEN CONFIRMED THE DECISION THRESHOLDFOR CO DIAGNOSIS. Performed By: #### C MREP ####[facility] Pzxfoqhays0851 [place] [phone]. Swathi Reis CK [Catalytic activity/Vol] 26 U/L Normal 26-192 [facility] Comment on above: Performed By: #### C MREP ####[facility] Ildyymiual9208 [place] [phone]. Swathi Reis CK.MB [Mass/Vol] 0.59 ng/mL Normal <=3.60 [facility] Comment on above: Performed By: #### C MREP ####[facility] Xdotkxastf5272 [place] [phone]. Swathi Reis HSTROP 16.3 pg/mL Normal 4.0-51.3 [facility] Comment on above: Result Comment: CUT- OFF POINTS HAVE BEEN ESTABLISHED BASED ON THE FOURTH UNIVERSAL DEFINITIONS OF MYOCARDIALINFARCTION. THE UPPER REFERENCE LIMIT (URL) OF TROPONIN, DEFINED THE 99TH PERCENTILE OFcTnI DISTRIBUTION IN A REFERENCE POPULATION, HAS BEEN CONFIRMED THE DECISION THRESHOLDFOR CO DIAGNOSIS. Performed By: #### C MREP ####[facility] Lxvzkrhnqc2135 [place] [address]Dr. Swathi Reis CBC AUTO DIFFon 08-19-2022 BASO # 0.1 103/ul Normal 0.0-0.1 [facility] Comment on above: Performed By: #### C BC ####[facility] Pklitxgngj2153 [place] [phone]. Swathi Reis Basophils/100 WBC (Bld) 0.4 % Normal 0.2-2.0 [facility] Comment on above: Performed By: #### C BC ####[facility] Sektjsvlpo74[address] [place], [place] [address]Dr. Swathi Reis EO # 0.1 103/ul Normal 0.0-0.7 [facility] Comment on above: Performed By: #### C BC ####[facility] Leyleafqyd[address] [place], [place] [address]Dr. Swathi Chato Eosinophils/100 WBC (Bld) 0.4 % Critically low 0.9-7.0 [facility] Comment on above: Performed By: #### C BC ####[facility] Gvtfrfhuhj54[address] [place], [place] [address]Dr. Swathi Reis Erythrocyte distribution width (RBC) [Ratio] 14.2 % Normal 11.0-15.0 [facility] Comment on above: Performed By: #### C BC ####[facility] Exaaxudbmm[address] [place], [place] [address]Dr. Swathi Reis Hematocrit (Bld) [Volume fraction] 34.4 % Critically low 36.0-48.0 [facility] Comment on above: Performed By: #### C BC ####[facility] Hhbbuhmqek[address] [place], [place] [address]Dr. Swathi Reis Hemoglobin (Bld) [Mass/Vol] 11.2 g/dL Critically low 12.0-16.0 [facility] Comment on above: Performed By: #### C BC ####[facility] Ixsvldqxxy364[address] [place], [place] [address]Dr. Swathi Reis IG # 0.08 10e3/ul Critically high 0.00-0.03 [facility] Comment on above: Performed By: #### C BC ####[facility] Ivxhnkjoyo4763 [place] [phone]. Swathi Reis IG % 0.4 % Normal 0.0-0.5 [facility] Comment on above: Performed By: #### C BC ####[facility] Jcavrfwwuh1441 [place] [phone]. Swathi Reis LYMPH # 0.8 103/ul Critically low 1.2-3.8 [facility] Comment on above: Performed By: #### C BC ####[facility] Aksifxcsvf2620 [place] [phone]. Swathi Chato Lymphocytes/100 WBC (Bld) 4.1 % Critically low 20.5-60.0 [facility] Comment on above: Performed By: #### C BC ####[facility] Mecsqkjoak0595 [place] [address]Dr. Swathi Reis MANUAL DIFF REQ NO Normal [facility] Comment on above: Performed By: #### C BC ####[facility] Aaadyexvml8188 [place] [phone]. Swathi Reis MCH (RBC) [Entitic mass] 29.1 pg Normal 26.7-34.0 [facility] Comment on above: Performed By: #### C BC ####[facility] Klyoewnnbr4107 [place] [phone]. Swathi Reis MCHC (RBC) [Mass/Vol] 32.6 g/dL Normal 29.9-35.2 [facility] Comment on above: Performed By: #### C BC ####[facility] Oddvowbbte7783 [place] [phone]. Swathi Reis MCV (RBC) [Entitic vol] 89.4 fL Normal 81.0-99.0 [facility] Comment on above: Performed By: #### C BC ####[facility] Lqihqaipzd4507 [place] [phone]. Inessatracy Reis MONO # 1.1 103/ul Critically high 0.3-0.[address] [facility] Comment on above: Performed By: #### C BC ####[facility] Vbdlxmxfwh6674 [place] [phone]. Swathi Reis Monocytes/100 WBC (Bld) 5.8 % Normal 1.7-12.0 [facility] Comment on above: Performed By: #### C BC ####[facility] Tngwtszruy6692 [place] [phone]. Swathi Reis NEUT # 16.4 103/ul Critically high 1.4-6.5 [facility] Comment on above: Performed By: #### C BC ####[facility] Oupxgvclxw8910 [place] [phone]. Swathi Reis Neutrophils/100 WBC (Bld) 88.9 % Critically high 43.0-75.0 [facility] Comment on above: Performed By: #### C BC ####[facility] Zfkplcbwbh8500 [place] [phone]. Swathi Reis Platelet mean volume (Bld) [Entitic vol] 10.6 fL Normal 9.5-13.5 [facility] Comment on above: Performed By: #### C BC ####[facility] Wqczjyqofd6738 [place] [phone]. Swathi Reis PLT 366 103/ul Normal 150-450 [facility] Comment on above: Performed By: #### C BC ####[facility] Xilwycflsg8[address] [place] [phone]. Swathi Reis RBC 3.85 106/ul Critically low 4.20-5.40 [facility] Comment on above: Performed By: #### C BC ####[facility] Qfcrwfwhih0032 [place] [phone]. Swathi Reis WBC 18.4 103/ul Critically high 4.0-11.0 [facility] Comment on above: Performed By: #### C BC ####[facility] Yjznkokxag7167 [place] [phone]. Swathi Reis CTA CHEST WO W CONon 022 CTA CHEST WO W CON Normal [facility] CULTURE BLOODon 08-19-2022 Microscopic examination of blood, culture Culture Observations: NO GROWTH AT 5 DAYS. Normal [facility] Comment on above: Performed By: #### B LDCX2 ####[facility] Hlrkfhrdxn44[address] [place] [address]Dr. Inessatracy Reis Microscopic examination of blood, culture Culture Observations: NO GROWTH AT 5 DAYS. Normal [facility] Comment on above: Performed By: #### B LDCX1 ####[facility] Qreivnbpch3553 [place] [address]Dr. Swathi Reis Covid-19 PCR (CVDTB)on 07-25 SARS-CoV-2 (COVID-19) RNA ÓSCAR+probe Ql (Unsp spec) Not detected Normal NOT DETECTED [facility] Comment on above: Result Comment: When diagnostic [...] for this test is supported by the [place] [employer] of [employer] and Human Service's declaration that [...] be used). Performed By: #### C VDTBH ####[facility] Klvscincth7[address] [place] [phone]. Swathi Reis Performed By: #### R SPLUS ####[facility] Bxmggiltkq0003 [place] [phone]. Swathi Reis LACTATE/LACTIC ACIDon 2021 Lactate [Moles/Vol] 1.5 mmol/L Normal 0.4-1.9 [facility] Comment on above: Performed By: #### L ACT ####[facility] Mepoqashic025[address] [place] [address]Dr. Swathi Reis LIPASEon 08-19-2022 Lipase [Catalytic activity/Vol] 130.0 U/L Normal 73.0-393.0 [facility] Comment on above: Performed By: #### L IPA, BNP ####[facility] Pjbevxkicx98[address] [place] [address]Dr. Swathi Reis POINT OF CARE GLUCOSEon 07-25 Glucose [Mass/Vol] 222 mg/dL Critically high [address] [place] [address] Comment on above: Performed By: #### P OCGLUC ####[facility] Xxnnvdovdz[address] [place], [place] [address]Dr. Swathi Reis Glucose [Mass/Vol] 166 mg/dL Critically high [address] [place] [address] Comment on above: Performed By: #### P OCGLUC ####[facility] Chkqswdgbv[address] [place], [place] [address]Dr. Swathi [employer] Glucose [Mass/Vol] 213 mg/dL Critically high [address] [place] [address] Comment on above: Performed By: #### P OCGLUC ####[facility] Mnamesltty[address] [place], [place] [address]Dr. Swathi Reis RESPIRATORY PANEL PLUSon Adenovirus Not detected Normal NOT DETECTED [facility] Comment on above: Performed By: #### R SPLUS ####[facility] Rtyirvpdrz189[address] [place], [place] [address]Dr. tracy Reis B. Parapertusis Not detected Normal NOT DETECTED [facility] Comment on above: Performed By: #### R SPLUS ####[facility] Yadjcczajl217[address] [place], [place] [address]Dr. tracy Reis B. Pertussis Not detected Normal NOT DETECTED [facility] Comment on above: Performed By: #### R SPLUS ####[facility] Rdfwbfysyr627[address] [place], [place] [address]Dr. Swathi [employer] Chlamydia Pneumoniae Not detected Normal NOT DETECTED [facility] Comment on above: Performed By: #### R SPLUS ####[facility] Raqvchegcu[address] [place], [place] [address]Dr. Swathi [employer] Coronavirus 229E Not detected Normal NOT DETECTED [facility] Comment on above: Performed By: #### R SPLUS ####[facility] Kikkvcnlrg[address] [place], [place] [address]Dr. Swathi [employer] Coronavirus HKU1 Not detected Normal NOT DETECTED [facility] Comment on above: Performed By: #### R SPLUS ####[facility] Kbafiaeevx544[address] [place], [place] [address]Dr. Swathi [employer] Coronavirus NL63 Not detected Normal NOT DETECTED [facility] Comment on above: Performed By: #### R SPLUS ####[facility] Kfjwmpqsay[address] [place], [place] [address]Dr. Swathi [employer] Coronavirus OC43 Not detected Normal NOT DETECTED [facility] Comment on above: Performed By: #### R SPLUS ####[facility] Znuyhtjtgp[address] [place], [place] [address]Dr. Swathi Reis Influenza A H1 2009 Not detected Normal NOT DETECTED [facility] Comment on above: Performed By: #### R SPLUS ####[facility] Zcdcrhqgin[address] [place], [place] [address]Dr. Swathi Reis Influenza A H3 Not detected Normal NOT DETECTED [facility] Comment on above: Performed By: #### R SPLUS ####[facility] Zvmvbvytvl54[address] [place], [place] [address]Dr. Swathi [employer] Influenza B Not detected Normal NOT DETECTED [facility] Comment on above: Performed By: #### R SPLUS ####[facility] Uspexfaylt597[address] [place], [place] [address]Dr. Swathi Reis Metapneumovirus Not detected Normal NOT DETECTED [facility] Comment on above: Performed By: #### R SPLUS ####[facility] Qubporvbux115[address] [place], [place] [address]Dr. Inessatracy Reis Mycoplas. Pneumoniae Not detected Normal NOT DETECTED [facility] Comment on above: Performed By: #### R SPLUS ####[facility] Mrrhcacdmc12[address] [place], [place] [address]Dr. Swathi Reis Parainfluenza 1 Not detected Normal NOT DETECTED [facility] Comment on above: Performed By: #### R SPLUS ####[facility] Pzspazqrym96[address] [place], [place] [address]Dr. Swathi Reis Parainfluenza 2 Not detected Normal NOT DETECTED [facility] Comment on above: Performed By: #### R SPLUS ####[facility] Xnzkpvxsxz[address] [place], [place] [address]Dr. Swathi Reis Parainfluenza 3 Not detected Normal NOT DETECTED [facility] Comment on above: Performed By: #### R SPLUS ####[facility] Hvonaadqph924[address] [place], [place] [address]Dr. Swathi Reis Parainfluenza 4 Not detected Normal NOT DETECTED [facility] Comment on above: Performed By: #### R SPLUS ####[facility] Uhntreyiwo[address] [place], [place] [address]Dr. Inessatracy Reis Rhino/Enterovirus Not detected Normal NOT DETECTED [facility] Comment on above: Performed By: #### R SPLUS ####[facility] Yndxlqtwzx[address] [place], [place] [address]Dr. Swathi Reis RP2 Header 1 RESPIRATORY PANEL: VIRUSES Normal [facility] Comment on above: Performed By: #### R SPLUS ####[facility] Nijxujduof7[address] [place], [place] [address]Dr. Swathi Reis RP2 Header 2 RESPIRATORY PANEL: BACTERIA Normal [facility] Comment on above: Performed By: #### R SPLUS ####[facility] Cilyqszsxh[address] [place], [place] [address]Dr. Swathi Reis RSV Not detected Normal NOT DETECTED [facility] Comment on above: Performed By: #### R SPLUS ####[facility] Lynrpjpafg[address] [place], [place] [address]Dr. Inessatracy Reis XR CHEST 1 Von 08-19-2022 XR CHEST 1 V Normal [facility] BNPon 08-18-2022 Natriuretic peptide B (Bld) [Mass/Vol] 2955.0 pg/mL Critically high <=1,800.0 [facility] Comment on above: Performed By: #### B PANAMA HAT SMEARER ####[facility] Ucncvrtffj4688 [place] [phone]. Swathi Chato CARDIAC TRINA ADMITon 022 CK [Catalytic activity/Vol] 26 U/L Normal 26-192 [facility] Comment on above: Performed By: #### B FAY, CMADM ####[facility] Qvchcglosm8081 [place] [address]Dr. Swathi Ries CK.MB [Mass/Vol] 0.79 ng/mL Normal <=3.60 [facility] Comment on above: Performed By: #### B FAY, ANTONIADM ####[facility] Ipcoyqmouf9185 [place] [address]Dr. Swathi Chato HSTROP 16.0 pg/mL Normal 4.0-51.3 [facility] Comment on above: Result Comment: CUT- OFF POINTS HAVE BEEN ESTABLISHED BASED ON THE FOURTH UNIVERSAL DEFINITIONS OF MYOCARDIALINFARCTION. THE UPPER REFERENCE LIMIT (URL) OF TROPONIN, DEFINED THE 99TH PERCENTILE OFcTnI DISTRIBUTION IN A REFERENCE POPULATION, HAS BEEN CONFIRMED THE DECISION THRESHOLDFOR CO DIAGNOSIS. Performed By: #### B RACQUEL APONTE ####[facility] Rgflfsbysw[address] [place], [place] [address]Dr. Inessatracy Reis GUANACO 47 ng/mL Normal 9-82 [facility] Comment on above: Performed By: #### B ANTONIA APONTEDM ####[facility] Yfzhajcbji[address] [place], [place] [address]Dr. Swathi Reis CBC AUTO DIFFon 08-18-2022 BASO # 0.1 103/ul Normal 0.0-0.1 [facility] Comment on above: Performed By: #### C BC ####[facility] Hgigofnkma[address] [place], [place] [address]Dr. Swathi Reis Basophils/100 WBC (Bld) 0.4 % Normal 0.2-2.0 [facility] Comment on above: Performed By: #### C BC ####[facility] Wsybetovaj[address] [place], [place] [address]Dr. Swathi Reis EO # 0.1 103/ul Normal 0.0-0.7 [facility] Comment on above: Performed By: #### C BC ####[facility] Arckapkofj55[address] [place] [address]Dr. Swathi Chato Eosinophils/100 WBC (Bld) 0.9 % Normal 0.9-7.0 [facility] Comment on above: Performed By: #### C BC ####[facility] Csxnryqoxd40[address] [place], [place] [address]Dr. Swathi Reis Erythrocyte distribution width (RBC) [Ratio] 14.2 % Normal 11.0-15.0 [facility] Comment on above: Performed By: #### C BC ####[facility] Bfobtdrozp40[address] [place], [place] [address]Dr. Swathi Reis Hematocrit (Bld) [Volume fraction] 34.1 % Critically low 36.0-48.0 [facility] Comment on above: Performed By: #### C BC ####[facility] Efzujcrcev555[address] [place], [place] [address]Dr. Swathi Reis Hemoglobin (Bld) [Mass/Vol] 11.2 g/dL Critically low 12.0-16.0 [facility] Comment on above: Performed By: #### C BC ####[facility] Rlqtwulfmd91[address] [place], [place] [address]Dr. Inessatracy Chato IG # 0.06 10e3/ul Critically high 0.00-0.03 [facility] Comment on above: Performed By: #### C BC ####[facility] Wmzjkyxhhe[address] [place], [place] [address]Dr. Swathi Reis IG % 0.4 % Normal 0.0-0.5 [facility] Comment on above: Performed By: #### C BC ####[facility] Ozzzcrxzup[address] [place], [place] [address]Dr. Swathi Reis LYMPH # 1.4 103/ul Normal 1.2-3.8 [facility] Comment on above: Performed By: #### C BC ####[facility] Vjcwbgfhpw[address] [place], [place] [address]Dr. Swathi Reis Lymphocytes/100 WBC (Bld) 10.1 % Critically low 20.5-60.0 [facility] Comment on above: Performed By: #### C BC ####[facility] Jgtccdxkuh[address]73 [place] [address]DrOtto Reis MANUAL DIFF REQ NO Normal [facility] Comment on above: Performed By: #### C BC ####[facility] Vmcslougdz7426 [place] [address]Dr. Swathi Reis MCH (RBC) [Entitic mass] 29.2 pg Normal 26.7-34.0 [facility] Comment on above: Performed By: #### C BC ####[facility] Ipfgprmpxx[address] [place], [place] [address]Dr. Swathi Reis MCHC (RBC) [Mass/Vol] 32.8 g/dL Normal 29.9-35.2 [facility] Comment on above: Performed By: #### C BC ####[facility] Dgtpgvtkoo[address] [place], [place] [address]DrOtto Reis MCV (RBC) [Entitic vol] 89.0 fL Normal 81.0-99.0 [facility] Comment on above: Performed By: #### C BC ####[facility] Anelhravrb[address] [place], [place] [address]DrOtto Reis MONO # 1.1 103/ul Critically high 0.3-0.8 [facility] Comment on above: Performed By: #### C BC ####[facility] Infgqizyft220[address] [place], [place] [address]DrOtto Reis Monocytes/100 WBC (Bld) 8.3 % Normal 1.7-12.0 [facility] Comment on above: Performed By: #### C BC ####[facility] [address]dutwtvgiy[address] [place], [place] [address]DrOtto Reis NEUT # 11.0 103/ul Critically high 1.4-6.5 [facility] Comment on above: Performed By: #### C BC ####[facility] Gtsjcgidbc118[address] [place], [place] [address]DrOtto Reis Neutrophils/100 WBC (Bld) 79.9 % Critically high 43.0-75.0 [facility] Comment on above: Performed By: #### C BC ####[facility] Crqxrjtran6345 [place] [address]Dr. Swathi Reis Platelet mean volume (Bld) [Entitic vol] 10.7 fL Normal 9.5-13.5 [facility] Comment on above: Performed By: #### C BC ####[facility] Cvygwnljfw1661 [place] [phone]. Swathi Reis PLT 408 103/ul Normal 150-450 [facility] Comment on above: Performed By: #### C BC ####[facility] Bkhwykvgpc6410 [place] [address]Dr. Swathi Reis RBC 3.83 106/ul Critically low 4.20-5.40 [facility] Comment on above: Performed By: #### C BC ####[facility] Jholdkwrqv0043 [place] [phone]. Swathi Reis WBC 13.8 103/ul Critically high 4.0-11.0 [facility] Comment on above: Performed By: #### C BC ####[facility] Jdckciitki0727 [place] [phone]. Swathi Reis [facility]25 SARS-CoV-2 (COVID-19) RNA ÓSCAR+probe Ql (Unsp spec) Not detected Normal NOT DETECTED [facility] Comment on above: Result Comment: When diagnostic [...] for this test is supported by the [place] [employer] and Human Service's declaration that [...] be used). Performed By: #### C VDTBH ####[facility] Akuaebvgga[address] [place], [place] [address]Dr. Swathi Reis D-DIMERon 08-18-2022 D-DIMER 1.83 mg/L FEU Critically high <=0.59 [facility] Comment on above: Performed By: #### D DIM ####[facility] Rbufvcqwfw7[address] [place], [place] [address]Dr. [facility] D-DIMER COMMENTS SEE BELOW Normal [facility] Comment on above: Result Comment: Incr [...] generalized hospitalization. Performed By: #### D DIM ####[facility] Lzrhzocbhm[address] [place], [place] [address]Dr. Swathi Reis INFLUENZA A AND B AGon 08-18 INFLUENZA A AG Negative Normal NEGATIVE SEE COMMENT [facility] Comment on above: Performed By: #### R SV, INFLUAB ####[facility] Shzcjozmhb[address] [place], [place] [address]Dr. Swathi [employer] INFLUENZA B AG Negative Normal NEGATIVE SEE COMMENT [facility] Comment on above: Performed By: #### R SV, INFLUAB ####[facility] Vtpuhqakpb[address] [place], [place] [address]Dr. Inessatracy [employer] INFLUPOSH SEE BELOW Normal [facility] Comment on above: Result Comment: NOTE : Live attenuated influenzae vaccine viruses can cause a positive result for a rapid influenza diagnostic test if administered up to 7 days prior to rapid testing. Performed By: #### R SV, INFLUAB ####[facility] Gkejjsmzwa6[address] [place] [address]Dr. Swathi Resi INFLUPOSHB SEE BELOW Normal [facility] Comment on above: Result Comment: NOTE : Live attenuated influenzae vaccine viruses can cause a positive result for a rapid influenza diagnostic test if administered up to 7 days prior to rapid testing. Performed By: #### R LEI, INFLUAB ####[facility] Mpwszultnr[address] [place], [place] [address]Dr. Swathi Reis INTERNAL CONTROLS Within Normal Limits Normal Wi thin Normal Limits [facility] Comment on above: Performed By: #### R LEI, INFLUAB ####[facility] Yefzefrfwq814[address] [place], [place] [address]Dr. Swathi Reis LACTATE/LACTIC ACIDon 2021 Lactate [Moles/Vol] 1.9 mmol/L Normal 0.4-1.9 [facility] Comment on above: Performed By: #### L ACT ####[facility] Goxsjdeluy[address] [place], [place] [address]Dr. Swathi Reis PROF CHEM 8 (BAS METB)on Anion gap [Moles/Vol] 13.9 mmol/L Normal [facility] Comment on above: Performed By: #### RACQUEL Gonsales MP ####[facility] Awyvhifsqj[address] [place], [place] [address]Dr. Swathi Reis Calcium [Mass/Vol] 9.9 mg/dL Normal 8.5-10.1 [facility] Comment on above: Performed By: #### RACQUEL Gonsales MP ####[facility] Bmlakkcvlm524[address] [place], [place] [address]Dr. Swathi Reis Chloride [Moles/Vol] 102 mmol/L Normal 98-107 [facility] Comment on above: Performed By: #### RACQUEL Gonsales MP ####[facility] Mmhunsezvx[address] [place], [place] [address]Dr. Swathi Reis CO2 [Moles/Vol] 29.6 mmol/L Normal 21.0-32.0 [facility] Comment on above: Performed By: #### RACQUEL Gonsales MP ####[facility] Gkphdklyrg3333 [place] [address]Dr. Swathi Reis Creatinine [Mass/Vol] 1.61 mg/dL Critically high 0.55-1.02 [facility] Comment on above: Performed By: #### B FAY, RACQUEL ####[facility] Mqaojzhzve1847 [place] [phone]. Swathi Reis EGFR-AF FIJIAN 38 mL/min/1.73m2 Critically low >=60 [facility] Comment on above: Performed By: #### B FAY, RACQUEL ####[facility] Ygwkjosnjp3603 [place] [phone]. Swathi Reis EGFR-NON AF FIJIAN 31 mL/min/1.73m2 Critically low >=60 [facility] Comment on above: Performed By: #### B FAY, RACQUEL ####[facility] Mgluziuoxm7986 [place] [address]Dr. Swathi Reis Glucose [Mass/Vol] 192 mg/dL Critically high 74-106 [facility] Comment on above: Performed By: #### B FAY, RACQUEL ####[facility] Dazjrlqffm5248 [place] [address]Dr. Swathi Reis Potassium [Moles/Vol] 4.5 mmol/L Normal 3.5-5.1 [facility] Comment on above: Performed By: #### B FYA, RACQUEL ####[facility] Ofsvxseslo[address] [place], [place] [address]Dr. Swathi Reis Sodium [Moles/Vol] 141 mmol/L Normal 136-145 [facility] Comment on above: Performed By: #### B FAY, RACQUEL ####[facility] Suihqdcvrj7617 [place] [address]Dr. Swathi Reis Urea nitrogen [Mass/Vol] 27.0 mg/dL Critically high 7.0-18.0 [facility] Comment on above: Performed By: #### B FAY, RACQUEL ####[facility] Mzfzatuszn9768 [place] [address]Dr. Inessatracy Reis Urea nitrogen/Creatinine [Mass ratio] 16.8 mg/mg Normal [facility] Comment on above: Performed By: #### B MP, CMADM ####[facility] Ovrogydmyo[address] [place], [place] [address]Dr. Swathi Reis RSVon 08-18-2022 RSV AG Negative Normal NEGATIVE [facility] Comment on above: Performed By: #### R SV, INFLUAB ####[facility] Ytqmyhpviz[address] [place], [place] [address]Dr. Swathi Reis BNPon 07-12-2022 Natriuretic peptide B (Bld) [Mass/Vol] 5375.0 pg/mL Critically high <=1,800.0 [facility] Comment on above: Performed By: #### B PANAMA HAT SMEARER, CMP ####[facility] Cpzhipehof40[address] [place], [place] [address]Dr. Swathi Reis CBC AUTO DIFFon 07-12-2022 BASO # 0.1 103/ul Normal 0.0-0.1 [facility] Comment on above: Performed By: #### C BC ####[facility] Nfuqcwmnby[address] [place], [place] [address]Dr. Swathi Reis Basophils/100 WBC (Bld) 0.7 % Normal 0.2-2.0 [facility] Comment on above: Performed By: #### C BC ####[facility] Pxlvqjnstw[address] [place], [place] [address]Dr. Swathi Reis EO # 0.3 103/ul Normal 0.0-0.7 [facility] Comment on above: Performed By: #### C BC ####[facility] Klhhcvhkfc[address] [place], [place] [address]Dr. Swathi Reis Eosinophils/100 WBC (Bld) 3.2 % Normal 0.9-7.0 [facility] Comment on above: Performed By: #### C BC ####[facility] Zjupiqijhu[address] [place], [place] [address]DrOtto Swathi Reis Erythrocyte distribution width (RBC) [Ratio] 13.3 % Normal 11.0-15.0 [facility] Comment on above: Performed By: #### C BC ####[facility] Qijfkgedxt[address] [place], [place] [address]Dr. Swathi Reis Hematocrit (Bld) [Volume fraction] 29.9 % Critically low 36.0-48.0 [facility] Comment on above: Performed By: #### C BC ####[facility] Gzpmbwvdmn2935 [place] [address]Dr. Swathi Reis Hemoglobin (Bld) [Mass/Vol] 9.7 g/dL Critically low 12.0-16.0 [facility] Comment on above: Performed By: #### C BC ####[facility] Lddntsktvt2909 [place] [address]Dr. Swathi Reis IG # 0.05 10e3/ul Critically high 0.00-0.03 [facility] Comment on above: Performed By: #### C BC ####[facility] Fpckzzrnfz5179 [place] [address]Dr. Swathi Reis IG % 0.5 % Normal 0.0-0.5 [facility] Comment on above: Performed By: #### C BC ####[facility] Vkjbzfzhgu6656 [place] [address]Dr. Swathi Reis LYMPH # 1.5 103/ul Normal 1.2-3.8 [facility] Comment on above: Performed By: #### C BC ####[facility] Qhrxyqdpof9009 [place] [address]DrOtto Reis Lymphocytes/100 WBC (Bld) 14.0 % Critically low 20.5-60.0 [facility] Comment on above: Performed By: #### C BC ####[facility] Libnozftmy8637 [place] [address]DrOtto Reis MANUAL DIFF REQ NO Normal [facility] Comment on above: Performed By: #### C BC ####[facility] Nmflrfkslq2475 [place] [address]DrOtto Reis MCH (RBC) [Entitic mass] 30.1 pg Normal 26.7-34.0 [facility] Comment on above: Performed By: #### C BC ####[facility] Xmcwoauqnm[address] [place], [place] [address]Dr. Swathi Reis MCHC (RBC) [Mass/Vol] 32.4 g/dL Normal 29.9-35.2 [facility] Comment on above: Performed By: #### C BC ####[facility] Ffztngggey7039 [place] [phone]. Swathi Reis MCV (RBC) [Entitic vol] 92.9 fL Normal 81.0-99.0 [facility] Comment on above: Performed By: #### C BC ####[facility] Dpbuablivw6189 [place] [phone]. Swathi Chato MONO # 1.2 103/ul Critically high 0.3-0.8 [facility] Comment on above: Performed By: #### C BC ####[facility] Ynnrldbhsw4838 [place] [address]Dr. Swathi Reis Monocytes/100 WBC (Bld) 11.1 % Normal 1.7-12.0 [facility] Comment on above: Performed By: #### C BC ####[facility] Shdywgynmr8568 [place] [address]Dr. Inessatracy Chato NEUT # 7.5 103/ul Critically high 1.4-6.5 [facility] Comment on above: Performed By: #### C BC ####[facility] [address]iefawvt[address] [place], [place] [address]Dr. Swathi Chato Neutrophils/100 WBC (Bld) 70.5 % Normal 43.0-75.0 [facility] Comment on above: Performed By: #### C BC ####[facility] Mlakpzerku7152 [place] [id number]. Swathi Chato Platelet mean volume (Bld) [Entitic vol] 10.7 fL Normal 9.5-13.5 [facility] [facility] Comment on above: Performed By: #### C BC ####[facility] Yodoaeymif[address] [place] [phone]. Swathi Reis PLT 291 103/ul Normal 150-450 [facility] Comment on above: Performed By: #### C BC ####[facility] Yvfeoggssr[address] [place], [place] [address]Dr. Swathi Reis RBC 3.22 106/ul Critically low 4.20-5.[address] [facility] Comment on above: Performed By: #### C BC ####[facility] Ycxswsvlee[address] [place] [address]Dr. Swathi Reis WBC 10.6 103/ul Normal 4.0-11.0 [facility] Comment on above: Performed By: #### C BC ####[facility] [address]klopzul[address] [place] [address]Dr. Swathi Chato POINT OF CARE GLUCOSEon 06-24 0-2021 Glucose [Mass/Vol] 191 mg/dL Critically high 74-106 T [facility] Comment on above: Performed By: #### P OCGLUC ####[facility] Dabsfpjqyb8[address] [place] [address]Dr. Swathi Reis PROF 14(COMP METB)on 022 Albumin [Mass/Vol] 2.4 g/dL Critically low 3.4-5.0 [facility] Comment on above: Performed By: #### B PANAMA HAT SMEARER, CMP ####[facility] Fvsucjoenh[address] [place] [address]Dr. Swathi Reis Albumin/Globulin [Mass ratio] 0.6 {ratio} Normal [facility] Comment on above: Performed By: #### B PANAMA HAT SMEARER, CMP ####[facility] Vnwccofwve[address] [place] [address]Dr. Swathi Reis ALP [Catalytic activity/Vol] 73 U/L Normal 46-116 [facility] Comment on above: Performed By: #### B PANAMA HAT SMEARER, CMP ####[facility] Hgujofpmsj64[address] [place] [address]Dr. Swathi Reis ALT [Catalytic activity/Vol] 11 U/L Critically low 14-59 [facility] Comment on above: Performed By: #### B PANAMA HAT SMEARER, CMP ####[facility] Rhklkcrrls[address] [place] [address]Dr. Swathi Reis Anion gap [Moles/Vol] 7.7 mmol/L Normal [facility] Comment on above: Performed By: #### B PANAMA HAT SMEARER, CMP ####[facility] Uxxoshddot4682 [place] [phone]. Swathi Reis AST [Catalytic activity/Vol] 15 U/L Normal 15-37 [facility] Comment on above: Performed By: #### B PANAMA HAT SMEARER, CMP ####[facility] Kzzwwghrdf0248 [place] [phone]. Swathi Reis Bilirubin [Mass/Vol] 0.3 mg/dL Normal 0.2-1.0 [facility] Comment on above: Performed By: #### B PANAMA HAT SMEARER, CMP ####[facility] Ustqfycuxm[address] [place], [place] [address]Dr. Swathi Reis Calcium [Mass/Vol] 9.3 mg/dL Normal 8.5-10.1 [facility] Comment on above: Performed By: #### B PANAMA HAT SMEARER, CMP ####[facility] Xqeazlnhbb[address] [place], [place] [address]Dr. Swathi Reis Chloride [Moles/Vol] 104 mmol/L Normal 98-107 [facility] Comment on above: Performed By: #### B PANAMA HAT SMEARER, CMP ####[facility] Ylwhqtmkyb[address] [place], [place] [address]Dr. Swathi Reis CO2 [Moles/Vol] 30.2 mmol/L Normal 21.0-32.0 [facility] Comment on above: Performed By: #### B PANAMA HAT SMEARER, CMP ####[facility] Verjlssssk[address] [place], [place] [address]Dr. Swathi Reis Creatinine [Mass/Vol] 1.69 mg/dL Critically high 0.55-1.02 [facility] Comment on above: Performed By: #### B PANAMA HAT SMEARER, CMP ####[facility] Jyjqpxeuji[address] [place], [place] [address]Dr. Swathi Reis EGFR-AF FIJIAN 36 mL/min/1.73m2 Critically low >=60 [facility] Comment on above: Performed By: #### B PANAMA HAT SMEARER, CMP ####[facility] Jplkbhytmi107[address] [place], [place] [address]Dr. Swathi Chato EGFR-NON AF FIJIAN 29 mL/min/1.73m2 Critically low >=60 [facility] Comment on above: Performed By: #### B PANAMA HAT SMEARER, CMP ####[facility] Hsohrlufyq037[address] [place] [address]Dr. Swathi Reis Globulin (S) [Mass/Vol] 4.0 g/dL Normal [facility] Comment on above: Performed By: #### B PANAMA HAT SMEARER, CMP ####[facility] Awsymxjtbm[address] [place], [place] [address]Dr. Swathi Reis Glucose [Mass/Vol] 110 mg/dL Critically high 74-106 [facility] Comment on above: Performed By: #### B PANAMA HAT SMEARER, CMP ####[facility] Pqifrqcwrp[address] [place], [place] [address]Dr. Swathi Reis Potassium [Moles/Vol] 3.9 mmol/L Normal 3.5-5.1 [facility] Comment on above: Performed By: #### B PANAMA HAT SMEARER, CMP ####[facility] Bywxvuioce64[address] [place], [place] [address]Dr. Swathi Reis Protein [Mass/Vol] 6.4 g/dL Normal 6.4-8.2 [facility] Comment on above: Performed By: #### B PANAMA HAT SMEARER, CMP ####[facility] Qvkrmxktmv4823[address] [place], [place] [address]Dr. Swathi Reis Sodium [Moles/Vol] 138 mmol/L Normal 136-145 [facility] Comment on above: Performed By: #### B PANAMA HAT SMEARER, CMP ####[facility] Jkqrzvwzhi[address] [place], [place] [address]Dr. Swathi Reis Urea nitrogen [Mass/Vol] 21.0 mg/dL Critically high 7.0-18.0 [facility] Comment on above: Performed By: #### B PANAMA HAT SMEARER, CMP ####[facility] Ysgbwdswpp[address] [place], [place] [address]Dr. Swathi Reis Urea nitrogen/Creatinine [Mass ratio] 12.4 mg/mg Normal [facility] Comment on above: Performed By: #### B PANAMA HAT SMEARER, CMP ####[facility] Nlcejypvzy[address] [place], [place] [address]Dr. Swathi Chato BNPon 07-11-2022 Natriuretic peptide B (Bld) [Mass/Vol] 2516.0 pg/mL Critically high <=1,800.0 [facility] Comment on above: Performed By: #### B PANAMA HAT SMEARER, CMP ####[facility] Swyzqpvpps208[address] [place], [place] [address]Dr. Swathi Reis C. DIFF PCRon 07-11-2022 C. DIFFICILE PCR Positive Critically abnormal NEGATIVE [facility] Comment on above: Performed By: #### C DIFPOC ####[facility] Jimkxehbiw[address] [place], [place] [address]Dr. Swathi Reis CBC AUTO DIFFon 07-11-2022 BASO # 0.0 103/ul Normal 0.0-0.1 [facility] Comment on above: Performed By: #### C BC ####[facility] Dexhyhxfgz8[address] [place], [place] [address]Dr. Swathi Reis Basophils/100 WBC (Bld) 0.4 % Normal 0.2-2.0 [facility] Comment on above: Performed By: #### C BC ####[facility] Xfgypjotjg[address] [place], [place] [address]Dr. Swathi Reis EO # 0.2 103/ul Normal 0.0-0.7 [facility] Comment on above: Performed By: #### C BC ####[facility] Qygvuwkqdq[address] [place], [place] [address]Dr. Swathi Reis Eosinophils/100 WBC (Bld) 2.2 % Normal 0.9-7.0 [facility] Comment on above: Performed By: #### C BC ####[facility] Ssigkuvhwl[address] [place], [place] [address]Dr. Swathi Reis Erythrocyte distribution width (RBC) [Ratio] 13.4 % Normal 11.0-15.0 [facility] Comment on above: Performed By: #### C BC ####[facility] Qikkrcuvys[address] [place], [place] [address]Dr. Swathi Reis Hematocrit (Bld) [Volume fraction] 27.0 % Critically low 36.0-48.0 [facility] Comment on above: Performed By: #### C BC ####[facility] Eeyzjirzxz9[address] [place] [phone]. Swathi Reis Hemoglobin (Bld) [Mass/Vol] 8.5 g/dL Critically low 12.0-16.0 [facility] Comment on above: Performed By: #### C BC ####[facility] Kyjakqytrc70[address] [place] [phone]. Swathi Reis IG # 0.07 10e3/ul Critically high 0.00-0.03 [facility] Comment on above: Performed By: #### C BC ####[facility] Zhqrmropzg7830 [place] [phone]. Swathi Reis IG % 0.6 % Critically high 0.0-0.[address] [facility] Comment on above: Performed By: #### C BC ####[facility] Gjzktquskv[address] [place], [place] [address]Dr. Swathi Reis LYMPH # 1.2 103/ul Normal 1.2-3.8 [facility] Comment on above: Performed By: #### C BC ####[facility] Fndztgkbev[address] [place] [address]Dr. Swathi Reis Lymphocytes/100 WBC (Bld) 10.5 % Critically low 20.5-60.0 [facility] Comment on above: Performed By: #### C BC ####[facility] Vhmavxxeqk27[address] [place] [address]Dr. Swathi Reis MANUAL DIFF REQ NO Normal [facility] Comment on above: Performed By: #### C BC ####[facility] Qdfbghljjz8982 [place] [phone]. Swathi Reis MCH (RBC) [Entitic mass] 29.6 pg Normal 26.7-34.0 [facility] Comment on above: Performed By: #### C BC ####[facility] Tunvsxcmrq8049 [place] [phone]. Swathi Reis MCHC (RBC) [Mass/Vol] 31.5 g/dL Normal 29.9-35.2 [facility] Comment on above: Performed By: #### C BC ####[facility] Pqvbmhnswi5475 [place] [phone]. Swathi Reis MCV (RBC) [Entitic vol] 94.1 fL Normal 81.0-99.0 [facility] Comment on above: Performed By: #### C BC ####[facility] Krwtwwzfhp3513 [place] [phone]. Swathi Reis MONO # 1.1 103/ul Critically high 0.3-0.8 [facility] Comment on above: Performed By: #### C BC ####[facility] Ntrodfugsi0359 [place] [phone]. Swathi Reis Monocytes/100 WBC (Bld) 9.9 % Normal 1.7-12.0 [facility] Comment on above: Performed By: #### C BC ####[facility] Evbpvmtsvb[address] [place], [place] [address]Dr. Swathi Reis NEUT # 8.4 103/ul Critically high 1.4-6.5 [facility] Comment on above: Performed By: #### C BC ####[facility] [address]kwumqugt[address] [place], [place] [address]Dr. Swathi Reis Neutrophils/100 WBC (Bld) 76.4 % Critically high 43.0-75.0 [facility] Comment on above: Performed By: #### C BC ####[facility] Jewxzzyitn[address] [place], [place] [address]Dr. Swathi Reis Platelet mean volume (Bld) [Entitic vol] 10.6 fL Normal 9.5-13.5 [facility] Comment on above: Performed By: #### C BC ####[facility] Eldmfsgbho4499 [place] [phone]. Swathi Reis PLT 248 103/ul Normal 150-450 [facility] Comment on above: Performed By: #### C BC ####[facility] Tdwcjqluie2979 [place] [phone]. Swathi Reis RBC 2.87 106/ul Critically low 4.20-5.40 [facility] Comment on above: Performed By: #### C BC ####[facility] Ezibtqijse[address] [place], [place] [address]Dr. Swathi Reis WBC 11.0 103/ul Normal 4.0-11.0 [facility] Comment on above: Performed By: #### C BC ####[facility] Ipfvovzsqy[address] [place], [place] [address]Dr. Swathi Reis GI PANEL (PCR)on 07-11-2022 Adenovirus F 40/41 Not detected Normal NOT DETECTED [facility] Comment on above: Performed By: #### G IPANEL ####[facility] Vqpxilgjsi[address] [place], [place] [address]Dr. Swathi Reis Astrovirus Not detected Normal NOT DETECTED [facility] Comment on above: Performed By: #### G IPANEL ####[facility] Rsoupyrkmi76[address] [place], [place] [address]Dr. Swathi Reis C. Diff toxin A/B Detected Critically abnormal NOT DETECTED [facility] Comment on above: Performed By: #### G IPANEL ####[facility] Qiqtstaaqz78[address] [place], [place] [address]Dr. Swathi Reis Campylobacter Not detected Normal NOT DETECTED [facility] Comment on above: Performed By: #### G IPANEL ####[facility] Dafdhojffo[address] [place], [place] [address]Dr. Swathi Reis Cryptosporidium Not detected Normal NOT DETECTED [facility] Comment on above: Performed By: #### G IPANEL ####[facility] Xrkkvjpvdf[address] [place], [place] [address]Dr. Swathi Reis Cyclos. Cayetanensis Not detected Normal NOT DETECTED [facility] Comment on above: Performed By: #### G IPANEL ####[facility] Zupaojiqrw058[address] [place], [place] [address]Dr. Swathi Reis E. Coli O157 Not Applicable Normal Not Applicable [facility] Comment on above: Performed By: #### G IPANEL ####[facility] Ikiayigaam[address] [place], [place] [address]Dr. Swathi Reis E. histolytica Not detected Normal NOT DETECTED [facility] Comment on above: Performed By: #### G IPANEL ####[facility] Qkiqhsqwiw3022 [place] [phone]. Swathi Reis EAEC Not detected Normal NOT DETECTED [facility] Comment on above: Performed By: #### G IPANEL ####[facility] Nkxxcnhxlu1017 [place] [address]Dr. Swathi Reis EIEC Not detected Normal NOT DETECTED [facility] Comment on above: Performed By: #### G IPANEL ####[facility] Ouzlxjskiy[address] [place] [address]Dr. Swathi Reis EPEC Not detected Normal NOT DETECTED [facility] Comment on above: Performed By: #### G IPANEL ####[facility] Xjommiguzs[address] [place], [place] [address]Dr. Swathi Reis ETEC Not detected Normal NOT DETECTED [facility] Comment on above: Performed By: #### G IPANEL ####[facility] Qkxjmlxkgq[address] [place], [place] [address]Dr. Inessatracy Reis G. Lamblia Not detected Normal NOT DETECTED [facility] Comment on above: Performed By: #### G IPANEL ####[facility] Newohddheo[address] [place], [place] [address]Dr. Swathi Reis GIPANEL CONTROLS PASSED Normal [facility] Comment on above: Performed By: #### G IPANEL ####[facility] Ybaghxnuci01[address] [place] [address]Dr. Swathi Reis GIPNL RICHELLE HEADER GI PANEL BACTERIA Normal T [facility] Comment on above: Performed By: #### G IPANEL ####[facility] Movzhrgmkg7340 [place] [address]Dr. Swathi Reis GIPNLHD ECOLI GI PANEL DIARRHEAGEN IC E.COLI / SHIGELLA Normal [facility] Comment on above: Performed By: #### G IPANEL ####[facility] Dyafckpsfy[address] [place], [place] [address]Dr. Swathi Reis GIPNLHD INFO SEE BELOW Normal [facility] Comment on above: Result Comment: EAEC - Enteroaggregative E. Coli EPEC- Enteropathogenic E. Coli ETEC- Enterotoxigenic E. Coli lt/st STEC- Shigella-like toxin-producing E. Coli stx1/stx2 EIEC- Shigella/Enteroinvasive E. Coli Performed By: #### G IPANEL ####[facility] Iyzvdhnwej[address] [place], [place] [address]Dr. Swathi Reis GIPNLHD PARASITES GI PANEL PARASITES Normal [facility] Comment on above: Performed By: #### G IPANEL ####[facility] Guivdpcuec[address] [place], [place] [address]Dr. Swathi Reis GIPNLHD VIRUS GI PANEL VIRUSES Normal [facility] Comment on above: Performed By: #### G IPANEL ####[facility] Thyiklbwyl[address] [place], [place] [address]Dr. Swathi Reis Norovirus GI/GII Not detected Normal NOT DETECTED [facility] Comment on above: Performed By: #### G IPANEL ####[facility] Grydxqzegi100[address] [place], [place] [address]Dr. Swathi Reis P. Shigelloides Not detected Normal NOT DETECTED [facility] Comment on above: Performed By: #### G IPANEL ####[facility] Aksceaoyqr[address] [place], [place] [address]Dr. Swathi Reis Rotavirus A Not detected Normal NOT DETECTED [facility] Comment on above: Performed By: #### G IPANEL ####[facility] Lzaoznvbbg[address] [place], [place] [address]Dr. Swathi Reis Salmonella Not detected Normal NOT DETECTED [facility] Comment on above: Performed By: #### G IPANEL ####[facility] Vahiwiphqz060[address] [place], [place] [address]Dr. Swathi Ries Sapovirus Not detected Normal NOT DETECTED [facility] Comment on above: Performed By: #### G IPANEL ####[facility] Nnnyvquexc[address] [place], [place] [address]Dr. Swathi Reis STEC Detected Critically abnormal NOT DETECTED [facility] Comment on above: Performed By: #### G IPANEL ####[facility] Jctgvphfqy[address] [place], [place] [address]Dr. Swathi Reis Vibrio Not detected Normal NOT DETECTED [facility] Comment on above: Performed By: #### G IPANEL ####[facility] Wuxjzbtsyr147[address] [place], [place] [address]Dr. Swathi Reis Vibrio Cholera Not detected Normal NOT DETECTED [facility] Comment on above: Performed By: #### G IPANEL ####[facility] Ftutnvmexq360[address] [place], [place] [address]Dr. Swathi Reis Y. Enterocolitica Not detected Normal NOT DETECTED [facility] Comment on above: Performed By: #### G IPANEL ####[facility] Zjqrbmcszk[address] [place], [place] [address]Dr. Swathi Reis POINT OF CARE GLUCOSEon 06-23 Glucose [Mass/Vol] 120 mg/dL Critically high 74-106 [facility] Comment on above: Performed By: #### P OCGLUC ####[facility] Gmdmgdeqcs8[address] [place], [place] [address]Dr. Swathi Reis Glucose [Mass/Vol] 193 mg/dL Critically high 74-106 [facility] Comment on above: Performed By: #### P OCGLUC ####[facility] Qynqlqgamy375[address] [place], [place] [address]Dr. Swathi Reis PROF 14(COMP METB)on 022 Albumin [Mass/Vol] 2.4 g/dL Critically low 3.4-5.0 [facility] Comment on above: Performed By: #### B PANAMA HAT SMEARER, CMP ####[facility] Zejeqldqtb87[address] [place], [place] [address]Dr. Swathi Reis Albumin/Globulin [Mass ratio] 0.7 {ratio} Normal [facility] Comment on above: Performed By: #### B PANAMA HAT SMEARER, CMP ####[facility] Oixkfypfdb[address] [place], [place] [address]Dr. Swathi Reis ALP [Catalytic activity/Vol] 70 U/L Normal 46-116 [facility] Comment on above: Performed By: #### B PANAMA HAT SMEARER, CMP ####[facility] Ghlutqcqah[address] [place], [place] [address]Dr. Swathi Reis ALT [Catalytic activity/Vol] 12 U/L Critically low 14-59 [facility] Comment on above: Performed By: #### B PANAMA HAT SMEARER, CMP ####[facility] Tyfhlzegxm422[address] [place], [place] [address]Dr. Swathi Reis Anion gap [Moles/Vol] 8.7 mmol/L Normal [facility] Comment on above: Performed By: #### B PANAMA HAT SMEARER, CMP ####[facility] Lhkkwyzdbh227[address] [place], [place] [address]Dr. Swathi Reis AST [Catalytic activity/Vol] 11 U/L Critically low 15-37 [facility] Comment on above: Performed By: #### B PANAMA HAT SMEARER, CMP ####[facility] [address]asmoklzr97[address] [place], [place] [address]Dr. Swathi Reis Bilirubin [Mass/Vol] 0.3 mg/dL Normal 0.2-1.0 [facility] Comment on above: Performed By: #### B PANAMA HAT SMEARER, CMP ####[facility] [address]odzqtlhb7[address] [place], [place] [address]Dr. Swathi Reis Calcium [Mass/Vol] 9.1 mg/dL Normal 8.5-10.1 [facility] Comment on above: Performed By: #### B PANAMA HAT SMEARER, CMP ####[facility] Uliqnckqie657[address] [place], [place] [address]Dr. Swathi Reis Chloride [Moles/Vol] 107 mmol/L Normal 98-107 [facility] Comment on above: Performed By: #### B PANAMA HAT SMEARER, CMP ####[facility] Fbcxqdgqwi214[address] [place], [place] [address]Dr. Swathi Reis CO2 [Moles/Vol] 27.6 mmol/L Normal 21.0-32.0 [facility] Comment on above: Performed By: #### B PANAMA HAT SMEARER, CMP ####[facility] Ioeuzprofo[address] [place], [place] [address]Dr. Swathi Reis Creatinine [Mass/Vol] 1.72 mg/dL Critically high 0.55-1.02 [facility] Comment on above: Performed By: #### B PANAMA HAT SMEARER, CMP ####[facility] Xpetccuktv[address] [place] [address]Dr. Swathi Reis EGFR-AF FIJIAN 35 mL/min/1.73m2 Critically low >=60 [facility] Comment on above: Performed By: #### B PANAMA HAT SMEARER, CMP ####[facility] Qpaczqphaa[address] [place], [place] [address]Dr. Swathi Reis EGFR-NON AF FIJIAN 29 mL/min/1.73m2 Critically low >=60 [facility] Comment on above: Performed By: #### B PANAMA HAT SMEARER, CMP ####[facility] Wloeulzdsu79[address] [place], [place] [address]Dr. Swathi Reis Globulin (S) [Mass/Vol] 3.6 g/dL Normal [facility] Comment on above: Performed By: #### B PANAMA HAT SMEARER, CMP ####[facility] Lxvrmqnged[address] [place], [place] [address]Dr. Swathi Reis Glucose [Mass/Vol] 119 mg/dL Critically high 74-106 [facility] Comment on above: Performed By: #### B PANAMA HAT SMEARER, CMP ####[facility] Slmcjtytxt[address] [place], [place] [address]Dr. Swathi Reis Potassium [Moles/Vol] 4.3 mmol/L Normal 3.5-5.1 [facility] Comment on above: Performed By: #### B PANAMA HAT SMEARER, CMP ####[facility] [address]qltklrt02[address] [place], [place] [address]Dr. Swathi Reis Protein [Mass/Vol] 6.0 g/dL Critically low 6.4-8.2 [facility] Comment on above: Performed By: #### B PANAMA HAT SMEARER, CMP ####[facility] Orpegjyfhx[address] [place], [place] [address]Dr. Sawthi Reis Sodium [Moles/Vol] 139 mmol/L Normal 136-145 [facility] Comment on above: Performed By: #### B PANAMA HAT SMEARER, CMP ####[facility] Nychjqujfn[address] [place], [place] [address]Dr. Swathi Reis Urea nitrogen [Mass/Vol] 23.0 mg/dL Critically high 7.0-18.0 [facility] Comment on above: Performed By: #### B PANAMA HAT SMEARER, CMP ####[facility] Wwxawazfai[address] [place], [place] [address]Dr. Swathi Reis Urea nitrogen/Creatinine [Mass ratio] 13.4 mg/mg Normal [facility] Comment on above: Performed By: #### B PANAMA HAT SMEARER, CMP ####[facility] Necswwtzol[address] [place], [place] [address]Dr. Inessatracy Chato BNPon 07-10-2022 Natriuretic peptide B (Bld) [Mass/Vol] 2243.0 pg/mL Critically high <=1,800.0 [facility] Comment on above: Performed By: #### B PANAMA HAT SMEARER, CMP ####[facility] Zwxqhhppjv[address] [place], [place] [address]Dr. Swathi Reis CBC AUTO DIFFon 07-10-2022 BASO # 0.1 103/ul Normal 0.0-0.1 [facility] Comment on above: Performed By: #### C BC ####[facility] [address]eetfxxw[address] [place], [place] [address]Dr. Swathi Reis Basophils/100 WBC (Bld) 0.7 % Normal 0.2-2.0 [facility] Comment on above: Performed By: #### C BC ####[facility] Xrlyfgenmg[address] [place], [place] [address]Dr. Swathi Reis EO # 0.2 103/ul Normal 0.0-0.7 [facility] Comment on above: Performed By: #### C BC ####[facility] Qlhjkltesx[address] [place], [place] [address]Dr. Swathi Reis Eosinophils/100 WBC (Bld) 2.1 % Normal 0.9-7.0 [facility] Comment on above: Performed By: #### C BC ####[facility] [address]zbwyzxviq[address] [place], [place] [address]Dr. Swathi Reis Erythrocyte distribution width (RBC) [Ratio] 13.5 % Normal 11.0-15.0 [facility] Comment on above: Performed By: #### C BC ####[facility] Wbdzkuhmua[address] [place], [place] [address]Dr. Swathi Reis Hematocrit (Bld) [Volume fraction] 36.6 % Normal 36.0-48.0 [facility] Comment on above: Performed By: #### C BC ####[facility] Dbiilvspph[address] [place] [address]Dr. Inessatracy Reis Hemoglobin (Bld) [Mass/Vol] 11.3 g/dL Critically low 12.0-16.0 [facility] Comment on above: Performed By: #### C BC ####[facility] Giwxdsyexd[address] [place], [place] [address]DrOtto Reis IG # 0.03 10e3/ul Normal 0.00-0.03 [facility] Comment on above: Performed By: #### C BC ####[facility] Smpvtulyoc7[address] [place], [place] [address]DrOtto Reis IG % 0.4 % Normal 0.0-0.5 [facility] Comment on above: Performed By: #### C BC ####[facility] Qyoocqqtkd[address] [place], [place] [address]DrOtto Reis LYMPH # 0.8 103/ul Critically low 1.2-3.8 [facility] Comment on above: Performed By: #### C BC ####[facility] Wovgwurbab[address] [place], [place] [address]DrOtto Reis Lymphocytes/100 WBC (Bld) 10.3 % Critically low 20.5-60.0 [facility] Comment on above: Performed By: #### C BC ####[facility] Rkwrlkaoct69[address] [place], [place] [address]DrOtto Reis MANUAL DIFF REQ NO Normal [facility] Comment on above: Performed By: #### C BC ####[facility] Bakqwpoagn350[address] [place], [place] [address]DrOtto Reis MCH (RBC) [Entitic mass] 29.1 pg Normal 26.7-34.0 [facility] Comment on above: Performed By: #### C BC ####[facility] Chcogonrri213[address] [place], [place] [address]DrOtto Reis MCHC (RBC) [Mass/Vol] 30.9 g/dL Normal 29.9-35.2 [facility] Comment on above: Performed By: #### C BC ####[facility] Qladxqgbse9636[address] [place], [place] [address]DrOtto Swathi Chato MCV (RBC) [Entitic vol] 94.3 fL Normal 81.0-99.0 [facility] Comment on above: Performed By: #### C BC ####[facility] Mxeeagkwrz7[address] [place], [place] [address]DrOtto Reis MONO # 0.7 103/ul Normal 0.3-0.8 [facility] Comment on above: Performed By: #### C BC ####[facility] Largwwtqfa[address] [place], [place] [address]DrOtto Reis Monocytes/100 WBC (Bld) 10.2 % Normal 1.7-12.0 [facility] Comment on above: Performed By: #### C BC ####[facility] Pcqrptllvn17[address] [place], [place] [address]Dr. Swathi Reis NEUT # 5.5 103/ul Normal 1.4-6.5 [facility] Comment on above: Performed By: #### C BC ####[facility] Eqgatuutsk[address] [place], [place] [address]DrOtto Reis Neutrophils/100 WBC (Bld) 76.3 % Critically high 43.0-75.0 [facility] Comment on above: Performed By: #### C BC ####[facility] Sldnzscfnx255[address] [place], [place] [address]DrOtto Reis Platelet mean volume (Bld) [Entitic vol] 10.6 fL Normal 9.5-13.5 [facility] Comment on above: Performed By: #### C BC ####[facility] Mwukkklifa72[address] [place], [place] [address]DrOtto Reis PLT 212 103/ul Normal 150-450 [facility] Comment on above: Performed By: #### C BC ####[facility] Kpnakxhowj357[address] [place], [place] [address]DrOtto Reis RBC 3.88 106/ul Critically low 4.20-5.[address] [facility] Comment on above: Performed By: #### C BC ####[facility] [address]oghdofna[address] [place] [address]Dr. Swathi Reis WBC 7.3 103/ul Normal 4.0-11.0 [facility] Comment on above: Performed By: #### C BC ####[facility] Aogmqipbyn0[address] [place] [address]Dr. Swathi Reis POINT OF CARE GLUCOSEon 06-23 Glucose [Mass/Vol] 171 mg/dL Critically high 74-106 [facility] Comment on above: Performed By: #### P OCGLUC ####[facility] Vxzoidtrki037[address] [place], [place] [address]Dr. Swathi Reis Glucose [Mass/Vol] 162 mg/dL Critically high 74-106 [facility] Comment on above: Performed By: #### P OCGLUC ####[facility] Flwidcoegx6363 [place] [address]Dr. Swathi Reis Glucose [Mass/Vol] 176 mg/dL Critically high 74-106 [facility] Comment on above: Performed By: #### P OCGLUC ####[facility] Miwtaavxmj114[address] [place], [place] [address]Dr. Swathi Reis Glucose [Mass/Vol] 140 mg/dL Critically high 74-106 [facility] Comment on above: Performed By: #### P OCGLUC ####[facility] Cesgkehuro80[address] [place] [address]Dr. Swathi Reis Glucose [Mass/Vol] 37 mg/dL Critically low 74-106 [facility] Comment on above: Result Comment: Will Repeat Test Performed By: #### P OCGLUC ####[facility] Jmbebmsufu87[address] [place], [place] [address]Dr. Swathi Reis PROF 14(COMP METB)on 07-10-2 022 Albumin [Mass/Vol] 2.5 g/dL Critically low 3.4-5.0 [facility] Comment on above: Performed By: #### B PANAMA HAT SMEARER, CMP ####[facility] Gmhfweosux0446 [place], [place] [address]Vo. Swathi Reis Albumin/Globulin [Mass ratio] 0.7 {ratio} Normal [facility] Comment on above: Performed By: #### B PANAMA HAT SMEARER, CMP ####[facility] Oowwnzutna1820 [place], [place] [address]Au. Swathi Reis ALP [Catalytic activity/Vol] 71 U/L Normal 46-116 [facility] Comment on above: Performed By: #### B PANAMA HAT SMEARER, CMP ####[facility] Gzypdtdhyf4027 [place] [phone]. Swathi Reis ALT [Catalytic activity/Vol] 12 U/L Critically low 14-59 [facility] Comment on above: Performed By: #### B PANAMA HAT SMEARER, CMP ####[facility] Atvanivkej9912 [place] [phone]. Swathi Reis Anion gap [Moles/Vol] 10.1 mmol/L Normal [facility] Comment on above: Performed By: #### B PANAMA HAT SMEARER, CMP ####[facility] Mjngfeeqzu3360 [place] [phone]. Swathi Reis AST [Catalytic activity/Vol] 11 U/L Critically low 15-37 [facility] Comment on above: Performed By: #### B PANAMA HAT SMEARER, CMP ####[facility] Leolztulco5652 [place] [phone]. Swathi Reis Bilirubin [Mass/Vol] 0.4 mg/dL Normal 0.2-1.0 [facility] Comment on above: Performed By: #### B PANAMA HAT SMEARER, CMP ####[facility] Sybuvirayu9763 [place] [phone]. Swathi Reis Calcium [Mass/Vol] 9.0 mg/dL Normal 8.5-10.1 [facility] Comment on above: Performed By: #### B PANAMA HAT SMEARER, CMP ####[facility] Gxebbxhjqc9820 [place] [phone]. Swathi Chato Chloride [Moles/Vol] 107 mmol/L Normal 98-107 [facility] Comment on above: Performed By: #### B PANAMA HAT SMEARER, CMP ####[facility] Gbvtlelozt4135 [place] [phone]. Swathi Reis CO2 [Moles/Vol] 28.9 mmol/L Normal 21.0-32.0 [facility] Comment on above: Performed By: #### B PANAMA HAT SMEARER, CMP ####[facility] Utrvwznlsu[address] [place], [place] [address]Dr. Swathi Reis Creatinine [Mass/Vol] 2.01 mg/dL Critically high 0.55-1.02 [facility] Comment on above: Performed By: #### B PANAMA HAT SMEARER, CMP ####[facility] Pyhmmkrwfj7826[address] [place], [place] [address]Dr. Inessatracy Chato EGFR-AF FIJIAN 29 mL/min/1.73m2 Critically low >=60 [facility] Comment on above: Performed By: #### B PANAMA HAT SMEARER, CMP ####[facility] Ptgpxsvrtz605[address] [place], [place] [address]Dr. Swathi Reis EGFR-NON AF FIJIAN 24 mL/min/1.73m2 Critically low >=60 [facility] Comment on above: Performed By: #### B PANAMA HAT SMEARER, CMP ####[facility] Wpstpsfwib839[address] [place], [place] [address]Dr. Swathi Reis Globulin (S) [Mass/Vol] 3.6 g/dL Normal [facility] Comment on above: Performed By: #### B PANAMA HAT SMEARER, CMP ####[facility] Ulxdbegliu878[address] [place], [place] [address]Dr. Swathi Reis Glucose [Mass/Vol] 123 mg/dL Critically high 74-106 [facility] Comment on above: Performed By: #### B PANAMA HAT SMEARER, CMP ####[facility] Pcaaboktvi635[address] [place], [place] [address]Dr. Swathi Reis Potassium [Moles/Vol] 4.0 mmol/L Normal 3.5-5.1 [facility] Comment on above: Performed By: #### B PANAMA HAT SMEARER, CMP ####[facility] Qvcgojjaui770[address] [place], [place] [address]Dr. Swathi Reis Protein [Mass/Vol] 6.1 g/dL Critically low 6.4-8.2 [facility] Comment on above: Performed By: #### B PANAMA HAT SMEARER, CMP ####[facility] Tgegihxquq797[address] [place], [place] [address]Dr. Swathi Reis Sodium [Moles/Vol] 142 mmol/L Normal 136-145 [facility] Comment on above: Performed By: #### B PANAMA HAT SMEARER, CMP ####[facility] Lbzljjhjgq5920[address] [place], [place] [address]Dr. Swathi Reis Urea nitrogen [Mass/Vol] 27.0 mg/dL Critically high 7.0-18.0 [facility] Comment on above: Performed By: #### B PANAMA HAT SMEARER, CMP ####[facility] Nziqprjfkb398[address] [place], [place] [address]Dr. Swathi Chato Urea nitrogen/Creatinine [Mass ratio] 13.4 mg/mg Normal [facility] Comment on above: Performed By: #### B PANAMA HAT SMEARER, CMP ####[facility] Bxmgfthxvw227[address] [place], [place] [address]Dr. Swathi Chato BNPon 07-09-2022 Natriuretic peptide B (Bld) [Mass/Vol] 5933.0 pg/mL Critically high <=1,800.0 [facility] Comment on above: Performed By: #### B PANAMA HAT SMEARER, CMP ####[facility] Wnxsqncfhf01[address] [place], [place] [address]Dr. Swathi Reis CBC AUTO DIFFon 07-09-2022 BASO # 0.1 103/ul Normal 0.0-0.1 [facility] Comment on above: Performed By: #### C BC ####[facility] Chxyorlbon3734[address] [place], [place] [address]Dr. Inessatracy Reis Basophils/100 WBC (Bld) 0.5 % Normal 0.2-2.0 [facility] Comment on above: Performed By: #### C BC ####[facility] Uvnogbolnc905[address] [place], [place] [address]Dr. Swathi Reis EO # 0.3 103/ul Normal 0.0-0.7 [facility] Comment on above: Performed By: #### C BC ####[facility] [address]qveoimw[address] [place], [place] [address]Dr. Swathi Reis Eosinophils/100 WBC (Bld) 2.9 % Normal 0.9-7.0 [facility] Comment on above: Performed By: #### C BC ####[facility] Pzznaturnl[address]94 [place] [address]Dr. Swathi Reis Erythrocyte distribution width (RBC) [Ratio] 13.4 % Normal 11.0-15.0 [facility] Comment on above: Performed By: #### C BC ####[facility] Nrafcsqxmf[address] [place], [place] [address]Dr. Swathi Reis Hematocrit (Bld) [Volume fraction] 28.8 % Critically low 36.0-48.0 [facility] Comment on above: Performed By: #### C BC ####[facility] Ipgkmqupsp[address] [place], [place] [address]Dr. Swathi Reis Hemoglobin (Bld) [Mass/Vol] 9.2 g/dL Critically low 12.0-16.0 [facility] Comment on above: Performed By: #### C BC ####[facility] Vxdhbemfpk[address] [place], [place] [address]Dr. Swathi Reis IG # 0.04 10e3/ul Critically high 0.00-0.03 [facility] Comment on above: Performed By: #### C BC ####[facility] Ecwadyefdz[address] [place], [place] [address]Dr. Swathi Reis IG % 0.4 % Normal 0.0-0.5 [facility] Comment on above: Performed By: #### C BC ####[facility] Cmlfscgltz[address] [place], [place] [address]Dr. Swathi Reis LYMPH # 1.2 103/ul Normal 1.2-3.8 [facility] Comment on above: Performed By: #### C BC ####[facility] Zatxddbidj380[address] [place], [place] [address]Dr. Swathi Resi Lymphocytes/100 WBC (Bld) 10.9 % Critically low 20.5-60.0 [facility] Comment on above: Performed By: #### C BC ####[facility] Ljilondpdu6667 [place] [phone]. Swathi Reis MANUAL DIFF REQ NO Normal [facility] Comment on above: Performed By: #### C BC ####[facility] Ymunlqtvfk6382 [place] [phone]. Swathi Reis MCH (RBC) [Entitic mass] 30.0 pg Normal 26.7-34.0 [facility] Comment on above: Performed By: #### C BC ####[facility] Gvwvmubuft1251 [place] [address]Dr. Swathi Reis MCHC (RBC) [Mass/Vol] 31.9 g/dL Normal 29.9-35.2 [facility] Comment on above: Performed By: #### C BC ####[facility] Wtnvqdbyzc3290 [place] [address]Dr. Swathi Reis MCV (RBC) [Entitic vol] 93.8 fL Normal 81.0-99.0 [facility] Comment on above: Performed By: #### C BC ####[facility] Z[address]olbkegiu[address] [place], [place] [address]Dr. Swathi Chato MONO # 1.0 103/ul Critically high 0.3-0.8 [facility] Comment on above: Performed By: #### C BC ####[facility] Ytdoiouswr5687 [place] [phone]. Swathi Chato Monocytes/100 WBC (Bld) 9.6 % Normal 1.7-12.0 [facility] Comment on above: Performed By: #### C BC ####[facility] Pzsrbbxzrl8312 [place] [phone]. Swathi Reis NEUT # 8.0 103/ul Critically high 1.4-6.5 [facility] Comment on above: Performed By: #### C BC ####[facility] Jqdnrrwjtp7573 [place] [phone]. Swathi Reis Neutrophils/100 WBC (Bld) 75.7 % Critically high 43.0-75.0 [facility] Comment on above: Performed By: #### C BC ####[facility] Kxznfsvmpe5439 [place] [phone]. Swathi Reis Platelet mean volume (Bld) [Entitic vol] 10.6 fL Normal 9.5-13.5 [facility] Comment on above: Performed By: #### C BC ####[facility] Gxhfexsxav0903 [place] [phone]. Swathi Reis PLT 307 103/ul Normal 150-450 [facility] Comment on above: Performed By: #### C BC ####[facility] Rvdefzgykw8951 [place] [phone]. Swathi Reis RBC 3.07 106/ul Critically low 4.20-5.[address] [facility] Comment on above: Performed By: #### C BC ####[facility] Mpidddadep4198 [place] [phone]. Swathi Reis WBC 10.6 103/ul Normal 4.0-11.0 [facility] Comment on above: Performed By: #### C BC ####[facility] Nslatogxnh0565 [place] [phone]. Swathi Reis POINT OF CARE GLUCOSEon 06-23 Glucose [Mass/Vol] 168 mg/dL Critically high 74-106 [facility] Comment on above: Performed By: #### P OCGLUC ####[facility] Ykronblmwo2688 [place] [phone]. Swathi Reis Glucose [Mass/Vol] 136 mg/dL Critically high 74-106 [facility] Comment on above: Performed By: #### P OCGLUC ####[facility] Rmdkgvzppa5491 [place] [phone]. Swathi Reis Glucose [Mass/Vol] 203 mg/dL Critically high 74-106 [facility] Comment on above: Performed By: #### P OCGLUC ####[facility] Ltsiglfcpi9335 [place] [address]Dr. Swathi Reis PROF 14(COMP METB)on 07-09- 022 Albumin [Mass/Vol] 2.6 g/dL Critically low 3.4-5.0 [facility] Comment on above: Performed By: #### B PANAMA HAT SMEARER, CMP ####[facility] Hfymfkkbee7744 [place] [phone]. Swathi Reis Albumin/Globulin [Mass ratio] 0.7 {ratio} Normal [facility] Comment on above: Performed By: #### B PANAMA HAT SMEARER, CMP ####[facility] Qbzmqvbala1035 [place] [phone]. Swathi Reis ALP [Catalytic activity/Vol] 73 U/L Normal 46-116 [facility] Comment on above: Performed By: #### B PANAMA HAT SMEARER, CMP ####[facility] Awyrzxelvy6700 [place] [phone]. Swathi Reis ALT [Catalytic activity/Vol] 12 U/L Critically low 14-59 [facility] Comment on above: Performed By: #### B PANAMA HAT SMEARER, CMP ####[facility] Ogvkeuilzd0750 [place] [address]Dr. Swathi Reis Anion gap [Moles/Vol] 12.4 mmol/L Normal [facility] Comment on above: Performed By: #### B PANAMA HAT SMEARER, CMP ####[facility] Kjmwaicctl4074 [place] [address]Dr. Swathi Reis AST [Catalytic activity/Vol] 10 U/L Critically low 15-37 [facility] Comment on above: Performed By: #### B PANAMA HAT SMEARER, CMP ####[facility] Jautpxzfsb4737 [place] [phone]. Swathi Reis Bilirubin [Mass/Vol] 0.5 mg/dL Normal 0.2-1.0 [facility] Comment on above: Performed By: #### B PANAMA HAT SMEARER, CMP ####[facility] Tqekfqvqdw0125 [place] [phone]. Swathi Reis Calcium [Mass/Vol] 8.7 mg/dL Normal 8.5-10.1 [facility] Comment on above: Performed By: #### B PANAMA HAT SMEARER, CMP ####[facility] Nuipnyezgs7257 [place] [address]Dr. Swathi Reis Chloride [Moles/Vol] 105 mmol/L Normal 98-107 [facility] Comment on above: Performed By: #### B PANAMA HAT SMEARER, CMP ####[facility] Qncpemfufz1611 [place] [address]Dr. Swathi Reis CO2 [Moles/Vol] 27.3 mmol/L Normal 21.0-32.0 [facility] Comment on above: Performed By: #### B PANAMA HAT SMEARER, CMP ####[facility] Xnnzffkykw9043 [place] [address]Dr. Swathi Reis Creatinine [Mass/Vol] 2.02 mg/dL Critically high 0.55-1.02 [facility] Comment on above: Performed By: #### B PANAMA HAT SMEARER, CMP ####[facility] Zhsytzzllx83[address] [place], [place] [address]Dr. Swathi Chato EGFR-AF FIJIAN 29 mL/min/1.73m2 Critically low >=60 [facility] Comment on above: Performed By: #### B PANAMA HAT SMEARER, CMP ####[facility] Ljyfpfinky[address] [place], [place] [address]Dr. Swathi Chato EGFR-NON AF FIJIAN 24 mL/min/1.73m2 Critically low >=60 [facility] Comment on above: Performed By: #### B PANAMA HAT SMEARER, CMP ####[facility] Bczbhmflqt328[address] [place], [place] [address]Dr. Swathi Chato Globulin (S) [Mass/Vol] 3.6 g/dL Normal [facility] Comment on above: Performed By: #### B PANAMA HAT SMEARER, CMP ####[facility] Tmppjpwzeq[address] [place], [place] [address]Dr. Swathi Chato Glucose [Mass/Vol] 134 mg/dL Critically high 74-106 [facility] Comment on above: Performed By: #### B PANAMA HAT SMEARER, CMP ####[facility] Bdjsgjzhes95[address] [place], [place] [address]Dr. Swathi Chato Potassium [Moles/Vol] 3.7 mmol/L Normal 3.5-5.1 [facility] Comment on above: Performed By: #### B PANAMA HAT SMEARER, CMP ####[facility] Dughtnthvh524[address] [place], [place] [address]Dr. Swathi Reis Protein [Mass/Vol] 6.2 g/dL Critically low 6.4-8.2 Th e [facility] Comment on above: Performed By: #### B PANAMA HAT SMEARER, CMP ####[facility] Wrnwkkxani797[address] [place], [place] [address]Dr. Swathi Reis Sodium [Moles/Vol] 141 mmol/L Normal 136-145 [facility] Comment on above: Performed By: #### B PANAMA HAT SMEARER, CMP ####[facility] Ixmfclgmjm312[address] [place], [place] [address]Dr. Swathi Reis Urea nitrogen [Mass/Vol] 29.0 mg/dL Critically high 7.0-18.0 [facility] Comment on above: Performed By: #### B PANAMA HAT SMEARER, CMP ####[facility] Teauumynzz040[address] [place], [place] [address]Dr. Swathi Reis Urea nitrogen/Creatinine [Mass ratio] 14.4 mg/mg Normal [facility] Comment on above: Performed By: #### B PANAMA HAT SMEARER, CMP ####[facility] Fyhcmlvfnp[address] [place], [place] [address]Dr. Swathi Reis XR CHEST 2 Von 07-09-2022 XR CHEST 2 V Normal [facility] BNPon 07-08-2022 Natriuretic peptide B (Bld) [Mass/Vol] 6044.0 pg/mL Critically high <=1,800.0 [facility] Comment on above: Performed By: #### B PANAMA HAT SMEARER, CMP ####[facility] Nghlxfloxs[address] [place], [place] [address]Dr. Swathi Reis CBC AUTO DIFFon 07-08-2022 BASO # 0.1 103/ul Normal 0.0-0.1 [facility] Comment on above: Performed By: #### C BC ####[facility] Rmthnnsrxh039[address] [place], [place] [address]Dr. Swathi Reis Basophils/100 WBC (Bld) 0.7 % Normal 0.2-2.0 [facility] Comment on above: Performed By: #### C BC ####[facility] Lismikxafu137[address] [place], [place] [address]Dr. Swathi Reis EO # 0.3 103/ul Normal 0.0-0.7 [facility] Comment on above: Performed By: #### C BC ####[facility] Mmcooymukn9331 [place] [address]Dr. Swathi Chato Eosinophils/100 WBC (Bld) 2.9 % Normal 0.9-7.0 [facility] Comment on above: Performed By: #### C BC ####[facility] Djxzhlcieb76[address] [place], [place] [address]Dr. Swathi Chato Erythrocyte distribution width (RBC) [Ratio] 13.5 % Normal 11.0-15.0 [facility] Comment on above: Performed By: #### C BC ####[facility] Kqtzdgxybx097[address] [place], [place] [address]Dr. Swathi Reis Hematocrit (Bld) [Volume fraction] 29.9 % Critically low 36.0-48.0 [facility] Comment on above: Performed By: #### C BC ####[facility] Kcvsmbagdu24[address] [place], [place] [address]Dr. Swathi Reis Hemoglobin (Bld) [Mass/Vol] 9.5 g/dL Critically low 12.0-16.0 [facility] Comment on above: Performed By: #### C BC ####[facility] Fdieubxkua[address] [place], [place] [address]Dr. Inessatracy Chato IG # 0.03 10e3/ul Normal 0.00-0.03 [facility] Comment on above: Performed By: #### C BC ####[facility] Soqskgujzy[address] [place], [place] [address]Dr. Swathi Reis IG % 0.3 % Normal 0.0-0.5 [facility] Comment on above: Performed By: #### C BC ####[facility] Eopbfneqgl6[address] [place], [place] [address]Dr. Swathi Reis LYMPH # 0.9 103/ul Critically low 1.2-3.8 [facility] Comment on above: Performed By: #### C BC ####[facility] Ikecwrrdek96[address] [place], [place] [address]Dr. Swathi Reis Lymphocytes/100 WBC (Bld) 8.4 % Critically low 20.5-60.0 [facility] Comment on above: Performed By: #### C BC ####[facility] Vxhbzytolq3600 [place] [address]DrOtto Reis MANUAL DIFF REQ NO Normal [facility] Comment on above: Performed By: #### C BC ####[facility] Vbkunfntfo2610 [place] [address]Dr. Swathi Reis MCH (RBC) [Entitic mass] 30.1 pg Normal 26.7-34.0 [facility] Comment on above: Performed By: #### C BC ####[facility] Onskdiyyfx[address] [place], [place] [address]Dr. Swathi Reis MCHC (RBC) [Mass/Vol] 31.8 g/dL Normal 29.9-35.2 [facility] Comment on above: Performed By: #### C BC ####[facility] Wywrblrgek06[address] [place], [place] [address]Dr. Swathi Reis MCV (RBC) [Entitic vol] 94.6 fL Normal 81.0-99.0 [facility] Comment on above: Performed By: #### C BC ####[facility] Ratdbhzdqa00[address] [place], [place] [address]DrOtto Reis MONO # 1.0 103/ul Critically high 0.3-0.8 [facility] Comment on above: Performed By: #### C BC ####[facility] [address]ujmjafvsf[address] [place], [place] [address]DrOtto Reis Monocytes/100 WBC (Bld) 9.5 % Normal 1.7-12.0 [facility] Comment on above: Performed By: #### C BC ####[facility] Dxkjypxdts[address] [place], [place] [address]DrOtto Reis NEUT # 8.3 103/ul Critically high 1.4-6.5 [facility] Comment on above: Performed By: #### C BC ####[facility] Kvbgwhdfps[address] [place], [place] [address]DrOtto Reis Neutrophils/100 WBC (Bld) 78.2 % Critically high 43.0-75.0 [facility] Comment on above: Performed By: #### C BC ####[facility] Wnphrcaufv0828 [place] [address]Dr. Swathi Reis Platelet mean volume (Bld) [Entitic vol] 10.7 fL Normal 9.5-13.5 [facility] Comment on above: Performed By: #### C BC ####[facility] Gnbymvspow6176 [place] [address]Dr. Swathi Reis PLT 273 103/ul Normal 150-450 [facility] Comment on above: Performed By: #### C BC ####[facility] Afmgprewrh7[address] [address] [place], [place] [address]Dr. Swathi Reis RBC 3.16 106/ul Critically low 4.20-5.[address] [facility] Comment on above: Performed By: #### C BC ####[facility] Kkwxtcpjxh[address] [place], [place] [address]Dr. Swathi Reis WBC 10.6 103/ul Normal 4.0-11.0 [facility] Comment on above: Performed By: #### C BC ####[facility] Sanrnalbes[address] [place], [place] [address]Dr. Swathi Reis POINT OF CARE GLUCOSEon 06-23 Glucose [Mass/Vol] 243 mg/dL Critically high 74-106 [facility] Comment on above: Performed By: #### P OCGLUC ####[facility] Rxldobswgc[address] [place], [place] [address]Dr. Swathi Reis Glucose [Mass/Vol] 161 mg/dL Critically high 74-106 [facility] Comment on above: Performed By: #### P OCGLUC ####[facility] Qlhaidpfyx[address] [place], [place] [address]Dr. Swathi Reis Glucose [Mass/Vol] 186 mg/dL Critically high 74-106 [facility] Comment on above: Performed By: #### P OCGLUC ####[facility] Ydntznyotf[address] [place], [place] [address]Dr. Swathi Reis Glucose [Mass/Vol] 168 mg/dL Critically high 74-106 [facility] Comment on above: Performed By: #### P OCGLUC ####[facility] Vxqxtqmnqk[address] [place] [address]Dr. Swathi Reis PROF 14(COMP METB)on 07-08- 022 Albumin [Mass/Vol] 2.5 g/dL Critically low 3.4-5.0 [facility] Comment on above: Performed By: #### B PANAMA HAT SMEARER, CMP ####[facility] Siycwqrggt413[address] [place], [place] [address]Dr. Swathi Reis Albumin/Globulin [Mass ratio] 0.7 {ratio} Normal [facility] Comment on above: Performed By: #### B PANAMA HAT SMEARER, CMP ####[facility] Qmggqvvrjr[address] [place], [place] [address]Dr. Swathi Reis ALP [Catalytic activity/Vol] 77 U/L Normal 46-116 [facility] Comment on above: Performed By: #### B PANAMA HAT SMEARER, CMP ####[facility] Qystpxuvfc032[address] [place], [place] [address]Dr. Swathi Reis ALT [Catalytic activity/Vol] 16 U/L Normal 14-59 [facility] Comment on above: Performed By: #### B PANAMA HAT SMEARER, CMP ####[facility] Ickewknykj9[address] [place], [place] [address]Dr. Swathi Reis Anion gap [Moles/Vol] 11.9 mmol/L Normal [facility] Comment on above: Performed By: #### B PANAMA HAT SMEARER, CMP ####[facility] Swdvcatczb[address] [place], [place] [address]Dr. Swathi Reis AST [Catalytic activity/Vol] 13 U/L Critically low 15-37 [facility] Comment on above: Performed By: #### B PANAMA HAT SMEARER, CMP ####[facility] Xfxjzefcqw[address] [place], [place] [address]Dr. Swathi Reis Bilirubin [Mass/Vol] 0.6 mg/dL Normal 0.2-1.0 [facility] Comment on above: Performed By: #### B PANAMA HAT SMEARER, CMP ####[facility] Izydvrghod[address] [place], [place] [address]Dr. Swathi Reis Calcium [Mass/Vol] 8.7 mg/dL Normal 8.5-10.1 [facility] Comment on above: Performed By: #### B PANAMA HAT SMEARER, CMP ####[facility] Ioppjuvfiy[address] [place], [place] [address]Dr. Swathi Reis Chloride [Moles/Vol] 105 mmol/L Normal 98-107 [facility] Comment on above: Performed By: #### B PANAMA HAT SMEARER, CMP ####[facility] Xflcfbpjgw30[address] [place], [place] [address]Dr. Swathi Reis CO2 [Moles/Vol] 26.6 mmol/L Normal 21.0-32.0 [facility] Comment on above: Performed By: #### B PANAMA HAT SMEARER, CMP ####[facility] Gtcdorggch[address] [place], [place] [address]Dr. Swathi Reis Creatinine [Mass/Vol] 1.54 mg/dL Critically high 0.55-1.02 [facility] Comment on above: Performed By: #### B PANAMA HAT SMEARER, CMP ####[facility] Qebitjzobr[address] [place], [place] [address]Dr. Swathi Reis EGFR-AF FIJIAN 40 mL/min/1.73m2 Critically low >=60 [facility] Comment on above: Performed By: #### B PANAMA HAT SMEARER, CMP ####[facility] Vcemjgvwff190[address] [place], [place] [address]Dr. Swathi Reis EGFR-NON AF FIJIAN 33 mL/min/1.73m2 Critically low >=60 [facility] Comment on above: Performed By: #### B PANAMA HAT SMEARER, CMP ####[facility] Oiaikhzmfr[address] [place], [place] [address]Dr. Swathi Reis Globulin (S) [Mass/Vol] 3.8 g/dL Normal [facility] Comment on above: Performed By: #### B PANAMA HAT SMEARER, CMP ####[facility] Lqntxmjcyt8985[address] [place], [place] [address]Dr. Swathi Reis Glucose [Mass/Vol] 153 mg/dL Critically high 74-106 [facility] Comment on above: Performed By: #### B PANAMA HAT SMEARER, CMP ####[facility] Fgrsqtjbbu2[address] [place] [address]Dr. Swathi Reis Potassium [Moles/Vol] 3.5 mmol/L Normal 3.5-5.1 [facility] Comment on above: Performed By: #### B PANAMA HAT SMEARER, CMP ####[facility] Dqpppteuzs659[address] [place], [place] [address]Dr. Swathi Reis Protein [Mass/Vol] 6.3 g/dL Critically low 6.4-8.2 [facility] Comment on above: Performed By: #### B PANAMA HAT SMEARER, CMP ####[facility] Fmmabwyofl438[address] [place], [place] [address]Dr. Swathi Reis Sodium [Moles/Vol] 140 mmol/L Normal 136-145 [facility] Comment on above: Performed By: #### B PANAMA HAT SMEARER, CMP ####[facility] Bcsvwxyyat9912[address] [place], [place] [address]Dr. Swathi Reis Urea nitrogen [Mass/Vol] 25.0 mg/dL Critically high 7.0-18.0 [facility] Comment on above: Performed By: #### B PANAMA HAT SMEARER, CMP ####[facility] Iwwhmxfgfl299[address] [place], [place] [address]Dr. Swathi Reis Urea nitrogen/Creatinine [Mass ratio] 16.2 mg/mg Normal [facility] Comment on above: Performed By: #### B PANAMA HAT SMEARER, CMP ####[facility] Vtiawyqahr20[address] [place], [place] [address]Dr. Swathi Reis BNPon 07-07-2022 Natriuretic peptide B (Bld) [Mass/Vol] 6413.0 pg/mL Critically high <=1,800.0 [facility] Comment on above: Performed By: #### B PANAMA HAT SMEARER, CMP ####[facility] Hvavymogsr9034[address] [place], [place] [address]Dr. Swathi Reis CBC AUTO DIFFon 07-07-2022 BASO # 0.1 103/ul Normal 0.0-0.1 [facility] Comment on above: Performed By: #### C BC ####[facility] Hnuyxwpyas5[address] [place], [place] [address]Dr. Swathi Reis Basophils/100 WBC (Bld) 0.4 % Normal 0.2-2.0 [facility] Comment on above: Performed By: #### C BC ####[facility] Ygwgmzqlgr46[address] [place] [address]Dr. Swathi Reis EO # 0.3 103/ul Normal 0.0-0.7 [facility] Comment on above: Performed By: #### C BC ####[facility] Ezgnppjrwu9622 [place] [address]Dr. Swathi Reis Eosinophils/100 WBC (Bld) 2.6 % Normal 0.9-7.0 [facility] Comment on above: Performed By: #### C BC ####[facility] Jeusdnkvra2211[address] [place], [place] [address]Dr. Swathi Reis Erythrocyte distribution width (RBC) [Ratio] 13.7 % Normal 11.0-15.0 [facility] Comment on above: Performed By: #### C BC ####[facility] Kufhaundaq[address] [place], [place] [address]Dr. Swathi Reis Hematocrit (Bld) [Volume fraction] 28.9 % Critically low 36.0-48.0 [facility] Comment on above: Performed By: #### C BC ####[facility] Jgqxocazhf[address] [place], [place] [address]Dr. Swathi Reis Hemoglobin (Bld) [Mass/Vol] 9.3 g/dL Critically low 12.0-16.0 [facility] Comment on above: Performed By: #### C BC ####[facility] Fihupsvugy687[address] [place], [place] [address]Dr. Swathi Reis IG # 0.04 10e3/ul Critically high 0.00-0.03 The [facility] Comment on above: Performed By: #### C BC ####[facility] Oafazbkapd58[address] [place], [place] [address]Dr. Swathi Reis IG % 0.4 % Normal 0.0-0.5 [facility] Comment on above: Performed By: #### C BC ####[facility] Iqsbowsqtq3592 [place] [id number]. Swathi Reis LYMPH # 1.0 103/ul Critically low 1.2-3.8 [facility] Comment on above: Performed By: #### C BC ####[facility] Hkhwnrpzwb5038 [place] [address]Dr. Swathi Reis Lymphocytes/100 WBC (Bld) 8.6 % Critically low 20.5-60.0 [facility] Comment on above: Performed By: #### C BC ####[facility] Sfufapjpum46[address] [place] [address]Dr. Swathi Reis MANUAL DIFF REQ NO Normal [facility] Comment on above: Performed By: #### C BC ####[facility] Nqwewispoz[address] [place], [place] [address]Dr. Inessatracy Reis MCH (RBC) [Entitic mass] 30.0 pg Normal 26.7-34.0 [facility] Comment on above: Performed By: #### C BC ####[facility] Nefjiqdwqr8[address] [place], [place] [address]Dr. Inessatracy Reis MCHC (RBC) [Mass/Vol] 32.2 g/dL Normal 29.9-35.2 [facility] Comment on above: Performed By: #### C BC ####[facility] Atvlibhoev8[address] [place] [address]Dr. Swathi Reis MCV (RBC) [Entitic vol] 93.2 fL Normal 81.0-99.0 [facility] Comment on above: Performed By: #### C BC ####[facility] Wuroveahxm4837 [place] [address]Dr. Swathi Reis MONO # 1.0 103/ul Critically high 0.3-0.8 [facility] Comment on above: Performed By: #### C BC ####[facility] Rmjyuarmaq[address] [place], [place] [address]Dr. Swathi Reis Monocytes/100 WBC (Bld) 9.0 % Normal 1.7-12.0 [facility] Comment on above: Performed By: #### C BC ####[facility] Uufderzkqs3383 [place] [phone]. Swathi Reis NEUT # 9.0 103/ul Critically high 1.4-6.5 [facility] Comment on above: Performed By: #### C BC ####[facility] Uqpjslgvkr7781 [place] [phone]. Swathi Reis Neutrophils/100 WBC (Bld) 79.0 % Critically high 43.0-75.0 [facility] Comment on above: Performed By: #### C BC ####[facility] Tyiqzjaejw7702 [place] [address]Dr. Swathi Reis Platelet mean volume (Bld) [Entitic vol] 10.7 fL Normal 9.5-13.5 [facility] Comment on above: Performed By: #### C BC ####[facility] Ghxalvjain6409 [place] [address]Dr. Swathi Reis PLT 264 103/ul Normal 150-450 [facility] Comment on above: Performed By: #### C BC ####[facility] Cccteenchp5837 [place] [address]Dr. Swathi Reis RBC 3.10 106/ul Critically low 4.20-5.40 [facility] Comment on above: Performed By: #### C BC ####[facility] Swhtqfpzrs3421 [place] [phone]. Swtahi Reis WBC 11.4 103/ul Critically high 4.0-11.0 [facility] Comment on above: Performed By: #### C BC ####[facility] Iaxuppbwli79[address] [place] [address]Dr. Swathi Reis POINT OF CARE GLUCOSEon 10 Glucose [Mass/Vol] 298 mg/dL Critically high 74-106 [facility] Comment on above: Performed By: #### P OCGLUC ####[facility] Qmjtqqpgbw7[address] [place] [address]Dr. Swathi Reis Glucose [Mass/Vol] 123 mg/dL Critically high 74-106 [facility] Comment on above: Performed By: #### P OCGLUC ####[facility] Dzflkcxxhv6679 [place] [phone]. Swathi Reis Glucose [Mass/Vol] 263 mg/dL Critically high 74-106 [facility] Comment on above: Performed By: #### P OCGLUC ####[facility] Ynqptxinas69[address] [place] [address]Dr. Swathi Reis Glucose [Mass/Vol] 151 mg/dL Critically high 74-106 [facility] Comment on above: Performed By: #### P OCGLUC ####[facility] Cckfytcvyf6[address] [place] [address]Dr. Swathi Reis PROF 14(COMP METB)on 022 Albumin [Mass/Vol] 2.5 g/dL Critically low 3.4-5.0 [facility] Comment on above: Performed By: #### B PANAMA HAT SMEARER, CMP ####[facility] Clgndobbid7[address] [place], [place] [address]Dr. Swathi Reis Albumin/Globulin [Mass ratio] 0.7 {ratio} Normal [facility] Comment on above: Performed By: #### B PANAMA HAT SMEARER, CMP ####[facility] Ayamyigpvh92[address] [place], [place] [address]Dr. Swathi Reis ALP [Catalytic activity/Vol] 82 U/L Normal 46-116 [facility] Comment on above: Performed By: #### B PANAMA HAT SMEARER, CMP ####[facility] Uwqxiboycw[address] [place], [place] [address]Dr. Swathi Reis ALT [Catalytic activity/Vol] 13 U/L Critically low 14-59 [facility] Comment on above: Performed By: #### B PANAMA HAT SMEARER, CMP ####[facility] Biudnmckth[address] [place], [place] [address]Dr. Swathi Reis Anion gap [Moles/Vol] 11.5 mmol/L Normal [facility] Comment on above: Performed By: #### B PANAMA HAT SMEARER, CMP ####[facility] Ejtwshhqwt[address] [place], [place] [address]Dr. Swathi Reis AST [Catalytic activity/Vol] 12 U/L Critically low 15-37 [facility] Comment on above: Performed By: #### B PANAMA HAT SMEARER, CMP ####[facility] Uooywiztku0875 [place] [phone]. Swathi Reis Bilirubin [Mass/Vol] 0.7 mg/dL Normal 0.2-1.0 [facility] Comment on above: Performed By: #### B PANAMA HAT SMEARER, CMP ####[facility] Vkhcgoyhyr4773 [place] [phone]. Swathi Reis Calcium [Mass/Vol] 8.6 mg/dL Normal 8.5-10.1 [facility] Comment on above: Performed By: #### B PANAMA HAT SMEARER, CMP ####[facility] [address]qvr[address]km[address] [place], [place] [address]Dr. Swathi Reis Chloride [Moles/Vol] 104 mmol/L Normal 98-107 [facility] Comment on above: Performed By: #### B PANAMA HAT SMEARER, CMP ####[facility] Qlbyqyuaku[address] [place], [place] [address]Dr. Swathi Reis CO2 [Moles/Vol] 26.6 mmol/L Normal 21.0-32.0 [facility] Comment on above: Performed By: #### B PANAMA HAT SMEARER, CMP ####[facility] Vcqnmucevx[address] [place], [place] [address]Dr. Swathi Reis Creatinine [Mass/Vol] 1.56 mg/dL Critically high 0.55-1.02 [facility] Comment on above: Performed By: #### B PANAMA HAT SMEARER, CMP ####[facility] Vhaoloindb[address] [place], [place] [address]Dr. Swathi Reis EGFR-AF FIJIAN 39 mL/min/1.73m2 Critically low >=60 [facility] Comment on above: Performed By: #### B PANAMA HAT SMEARER, CMP ####[facility] Qnvpvgbwlt9[address] [place], [place] [address]Dr. Swathi Reis EGFR-NON AF FIJIAN 32 mL/min/1.73m2 Critically low >=60 [facility] Comment on above: Performed By: #### B PANAMA HAT SMEARER, CMP ####[facility] Vdvjznusyn[address] [place], [place] [address]Dr. Swathi Reis Globulin (S) [Mass/Vol] 3.7 g/dL Normal [facility] Comment on above: Performed By: #### B PANAMA HAT SMEARER, CMP ####[facility] Sltjmeqgem718[address] [place], [place] [address]Dr. Swathi Reis Glucose [Mass/Vol] 149 mg/dL Critically high 74-106 [facility] Comment on above: Performed By: #### B PANAMA HAT SMEARER, CMP ####[facility] Vtzkafmyph[address] [place], [place] [address]Dr. Swathi Reis Potassium [Moles/Vol] 3.1 mmol/L Critically low 3.5-5.1 [facility] Comment on above: Performed By: #### B PANAMA HAT SMEARER, CMP ####[facility] Ceinfogxqg33[address] [place], [place] [address]Dr. Swathi Reis Protein [Mass/Vol] 6.2 g/dL Critically low 6.4-8.2 [facility] Comment on above: Performed By: #### B PANAMA HAT SMEARER, CMP ####[facility] Lszbajoujp[address] [place], [place] [address]Dr. Swathi Reis Sodium [Moles/Vol] 139 mmol/L Normal 136-145 [facility] Comment on above: Performed By: #### B PANAMA HAT SMEARER, CMP ####[facility] Cfnsnshhgu67[address] [place], [place] [address]Dr. Swathi Reis Urea nitrogen [Mass/Vol] 19.0 mg/dL Critically high 7.0-18.0 [facility] Comment on above: Performed By: #### B PANAMA HAT SMEARER, CMP ####[facility] Ecdknavefq203[address] [place], [place] [address]Dr. Swathi Reis Urea nitrogen/Creatinine [Mass ratio] 12.2 mg/mg Normal [facility] Comment on above: Performed By: #### B PANAMA HAT SMEARER, CMP ####[facility] Pmxwfcklrp[address] [place], [place] [address]Dr. Swathi Reis BNPon 07-06-2022 Natriuretic peptide B (Bld) [Mass/Vol] 4734.0 pg/mL Critically high <=1,800.0 [facility] Comment on above: Performed By: #### B PANAMA HAT SMEARER, CMP ####[facility] Ihsmpeayoz2676 [place] [phone]. Swathi Reis CBC AUTO DIFFon 07-06-2022 BASO # 0.0 103/ul Normal 0.0-0.1 [facility] Comment on above: Performed By: #### C BC ####[facility] Gpczcouucj16[address] [place] [address]Dr. Inessatracy Reis Basophils/100 WBC (Bld) 0.3 % Normal 0.2-2.0 [facility] Comment on above: Performed By: #### C BC ####[facility] Pbxrsaakms[address] [place], [place] [address]Dr. Swathi Chato EO # 0.0 103/ul Normal 0.0-0.7 [facility] Comment on above: Performed By: #### C BC ####[facility] Yidrbdzado[address] [place], [place] [address]Dr. Inessatracy Reis Eosinophils/100 WBC (Bld) 0.1 % Critically low 0.9-7.0 [facility] Comment on above: Performed By: #### C BC ####[facility] Drdfsdsbii[address] [place], [place] [address]Dr. Inessatracy Reis Erythrocyte distribution width (RBC) [Ratio] 13.5 % Normal 11.0-15.0 [facility] Comment on above: Performed By: #### C BC ####[facility] Ygfsblrldy[address] [place], [place] [address]Dr. Swathi Reis Hematocrit (Bld) [Volume fraction] 29.6 % Critically low 36.0-48.0 [facility] Comment on above: Performed By: #### C BC ####[facility] Pbnxemgkid[address] [place], [place] [address]Dr. Inessatracy Reis Hemoglobin (Bld) [Mass/Vol] 9.6 g/dL Critically low 12.0-16.0 [facility] Comment on above: Performed By: #### C BC ####[facility] Zvrzofxgkr[address] [place], [place] [address]Dr. Swathi Reis IG # 0.07 10e3/ul Critically high 0.00-0.03 [facility] Comment on above: Performed By: #### C BC ####[facility] Ifplansmkx9942 [place] [phone]. Inessatracy Reis IG % 0.5 % Normal 0.0-0.5 [facility] Comment on above: Performed By: #### C BC ####[facility] Uaemulbhcp2224 [place] [phone]. Swathi Chato LYMPH # 1.4 103/ul Normal 1.2-3.8 [facility] Comment on above: Performed By: #### C BC ####[facility] Sfkmiacnem6410 [place] [address]Dr. Inessatracy Reis Lymphocytes/100 WBC (Bld) 9.7 % Critically low 20.5-60.0 [facility] Comment on above: Performed By: #### C BC ####[facility] Idpaevhffs3703 [place] [address]Dr. Swathi Reis MANUAL DIFF REQ NO Normal [facility] Comment on above: Performed By: #### C BC ####[facility] Pyfvfkrvwu2301 [place] [phone]. Swathi Chato MCH (RBC) [Entitic mass] 29.9 pg Normal 26.7-34.0 [facility] Comment on above: Performed By: #### C BC ####[facility] Dpyreuhihh4662 [place] [phone]. Inessatracy Chato MCHC (RBC) [Mass/Vol] 32.4 g/dL Normal 29.9-35.2 [facility] Comment on above: Performed By: #### C BC ####[facility] Hhehjukyci1818 [place] [phone]. Swathi Reis MCV (RBC) [Entitic vol] 92.2 fL Normal 81.0-99.0 [facility] Comment on above: Performed By: #### C BC ####[facility] Arvrmxcomy1712 [place] [phone]. Swathi Reis MONO # 1.3 103/ul Critically high 0.3-0.[address] [facility] Comment on above: Performed By: #### C BC ####[facility] Elceqlfixn8848 [place] [phone]. Swathi Reis Monocytes/100 WBC (Bld) 9.4 % Normal 1.7-12.0 [facility] Comment on above: Performed By: #### C BC ####[facility] Rnndxlfvlu8417 [place] [phone]. Swathi Reis NEUT # 11.4 103/ul Critically high 1.4-6.5 [facility] Comment on above: Performed By: #### C BC ####[facility] Xgbddejute8078 [place] [phone]. Swathi Reis Neutrophils/100 WBC (Bld) 80.0 % Critically high 43.0-75.0 [facility] Comment on above: Performed By: #### C BC ####[facility] Hwsddhjsys0351 [place] [address]Dr. Swathi Reis Platelet mean volume (Bld) [Entitic vol] 10.6 fL Normal 9.5-13.5 [facility] Comment on above: Performed By: #### C BC ####[facility] Wrptcbbjau4586 [place] [address]Dr. Swathi Reis PLT 283 103/ul Normal 150-450 [facility] Comment on above: Performed By: #### C BC ####[facility] Yjxhynsczj5956 [place] [phone]. Swathi Reis RBC 3.21 106/ul Critically low 4.20-5.40 [facility] Comment on above: Performed By: #### C BC ####[facility] Gijnmxudtf2356 [place] [phone]. Swathi Reis WBC 14.2 103/ul Critically high 4.0-11.0 [facility] Comment on above: Performed By: #### C BC ####[facility] Yfdfqreqbv8504 [place] [phone]. Swathi Reis ECHOCARDIO M/2D COMPLETEon 1 - ECHOCARDIO M/2D COMPLETE Normal [facility] POINT OF CARE GLUCOSEon 10-1 Glucose [Mass/Vol] 227 mg/dL Critically high 74-106 [facility] Comment on above: Performed By: #### P OCGLUC ####[facility] Eodnvahjsp5730 [place] [address]Dr. Swathi Reis Glucose [Mass/Vol] 175 mg/dL Critically high 74-106 [facility] Comment on above: Performed By: #### P OCGLUC ####[facility] Bxuxwoufvj8573 [place] [address]Dr. Swathi Reis PROF 14(COMP METB)on 07-06- 022 Albumin [Mass/Vol] 2.6 g/dL Critically low 3.4-5.0 [facility] Comment on above: Performed By: #### B PANAMA HAT SMEARER, CMP ####[facility] Oabcwqpjhf9[address] [place], [place] [address]Dr. Swathi Reis Albumin/Globulin [Mass ratio] 0.7 {ratio} Normal [facility] Comment on above: Performed By: #### B PANAMA HAT SMEARER, CMP ####[facility] Aygbujazeu[address] [place], [place] [address]Dr. Swathi Reis ALP [Catalytic activity/Vol] 79 U/L Normal 46-116 [facility] Comment on above: Performed By: #### B PANAMA HAT SMEARER, CMP ####[facility] [address]qkqjvfefg[address] [place], [place] [address]Dr. Swathi Reis ALT [Catalytic activity/Vol] 17 U/L Normal 14-59 [facility] Comment on above: Performed By: #### B PANAMA HAT SMEARER, CMP ####[facility] [address]btbddifp[address] [place], [place] [address]Dr. Swathi Reis Anion gap [Moles/Vol] 11.5 mmol/L Normal [facility] Comment on above: Performed By: #### B PANAMA HAT SMEARER, CMP ####[facility] Csbeqcbvvu8[address] [place], [place] [address]Dr. Swathi Reis AST [Catalytic activity/Vol] 11 U/L Critically low 15-37 [facility] Comment on above: Performed By: #### B PANAMA HAT SMEARER, CMP ####[facility] Hlexaxnspr[address] [place], [place] [address]Dr. Swathi Reis Bilirubin [Mass/Vol] 0.9 mg/dL Normal 0.2-1.0 [facility] Comment on above: Performed By: #### B PANAMA HAT SMEARER, CMP ####[facility] Rckseqzaiy[address] [place], [place] [address]Dr. Swathi Reis Calcium [Mass/Vol] 8.3 mg/dL Critically low 8.5-10.1 [facility] Comment on above: Performed By: #### B PANAMA HAT SMEARER, CMP ####[facility] [address]qejvjex[address] [place], [place] [address]Dr. Swathi Reis Chloride [Moles/Vol] 102 mmol/L Normal 98-107 [facility] Comment on above: Performed By: #### B PANAMA HAT SMEARER, CMP ####[facility] Ukaeevstdo[address] [place], [place] [address]Dr. Swathi Reis CO2 [Moles/Vol] 29.5 mmol/L Normal 21.0-32.0 [facility] Comment on above: Performed By: #### B PANAMA HAT SMEARER, CMP ####[facility] Yvrvj[address]cm[address] [place], [place] [address]Dr. Swathi Reis Creatinine [Mass/Vol] 1.47 mg/dL Critically high 0.55-1.02 [facility] Comment on above: Performed By: #### B PANAMA HAT SMEARER, CMP ####[facility] Nqnosmignr[address] [place], [place] [address]Dr. Swathi Chato EGFR-AF FIJIAN 42 mL/min/1.73m2 Critically low >=60 [facility] Comment on above: Performed By: #### B PANAMA HAT SMEARER, CMP ####[facility] Ragzwuznju[address] [place], [place] [address]Dr. Swathi Reis EGFR-NON AF FIJIAN 34 mL/min/1.73m2 Critically low >=60 [facility] Comment on above: Performed By: #### B PANAMA HAT SMEARER, CMP ####[facility] Hynsrmggkq24[address] [place], [place] [address]Dr. Swathi Reis Globulin (S) [Mass/Vol] 3.7 g/dL Normal [facility] Comment on above: Performed By: #### B PANAMA HAT SMEARER, CMP ####[facility] [address] [place] [address]Dr. Swathi Reis Glucose [Mass/Vol] 150 mg/dL Critically high 74-106 [facility] Comment on above: Performed By: #### B PANAMA HAT SMEARER, CMP ####[facility] Eqjxglfgsz0345 [place] [address]Dr. Inessatracy Reis Potassium [Moles/Vol] 3.0 mmol/L Critically low 3.5-5.1 [facility] Comment on above: Performed By: #### B PANAMA HAT SMEARER, CMP ####[facility] Aoqwjvltvj[address] [place], [place] [address]Dr. Inessatracy Reis Protein [Mass/Vol] 6.3 g/dL Critically low 6.4-8.2 [facility] Comment on above: Performed By: #### B PANAMA HAT SMEARER, CMP ####[facility] Jgsmrdigvd8[address] [place], [place] [address]Dr. Swathi Reis Sodium [Moles/Vol] 140 mmol/L Normal 136-145 [facility] Comment on above: Performed By: #### B PANAMA HAT SMEARER, CMP ####[facility] Enynacgxps[address] [place], [place] [address]Dr. Inessatracy Chato Urea nitrogen [Mass/Vol] 16.0 mg/dL Normal 7.0-18.0 [facility] Comment on above: Performed By: #### B PANAMA HAT SMEARER, CMP ####[facility] Sxxblnhfkk[address] [place], [place] [address]Dr. Swathi Reis Urea nitrogen/Creatinine [Mass ratio] 10.9 mg/mg Normal [facility] Comment on above: Performed By: #### B PANAMA HAT SMEARER, CMP ####[facility] Vrbtydoggu[address] [place], [place] [address]Dr. Inessatracy Chato XR CHEST 2 Von 07-06-2022 XR CHEST 2 V Normal [facility] BLOOD GASES BTYon 07-05-2022 02 MODE NASAL CANNULA Normal [facility] Comment on above: Performed By: #### A BG ####[facility] Bgviexcovs[address] [place], [place] [address]Dr. Swathi Reis ALLENS TEST Positive Normal [facility] Comment on above: Performed By: #### A BG ####[facility] Azmbphpyqf[address] [place] [address]Dr. Swathi Reis Base excess Calc (Bld) [Moles/Vol] 3.1 mmol/L Critically high -2.0-2.0 [facility] Comment on above: Performed By: #### A BG ####[facility] Czsikqbqqw[address] [place], [place] [address]Dr. Swathi Reis BIPAP PRESSURE Normal [facility] Comment on above: Performed By: #### A BG ####[facility] Sykyzqmawq[address] [place], [place] [address]Dr. Swathi Reis CPAP Normal [facility] Comment on above: Performed By: #### A BG ####[facility] Bqfknrepas[address] [place], [place] [address]Dr. Swathi Reis FIO2 Normal [facility] Comment on above: Performed By: #### A BG ####[facility] Ivmexbqeai[address] [place], [place] [address]Dr. Swathi Reis HCO3 (Bld) [Moles/Vol] 27.0 mmol/L Critically high 22.0-26.0 [facility] Comment on above: Performed By: #### A BG ####[facility] Fhnirjexyr[address] [place], [place] [address]Dr. Swathi Reis LPM 5 Normal [facility] Comment on above: Performed By: #### A BG ####[facility] Mwvhiazxzo50[address] [place], [place] [address]Dr. Swathi Reis MINUTE VOLUME Normal [facility] Comment on above: Performed By: #### A BG ####[facility] Pjjsgdffjf[address] [place], [place] [address]Dr. Swathi Reis Oxygen (Bld) [Partial pressure] 71.4 mm[Hg] Critically low 80.0-100.0 [facility] Comment on above: Performed By: #### A BG ####[facility] Oomrlbloev[address] [place], [place] [address]Dr. Swathi Reis Oxygen saturation in Blood 95.5 % Normal 95.0-100.0 [facility] Comment on above: Performed By: #### A BG ####[facility] Awlabdvemq33[address] [place] [address]Dr. Swathi Reis PCO2 40.2 mmHg Normal 35.0-45.0 [facility] Comment on above: Performed By: #### A BG ####[facility] Fjuugwllzw10[address] [place] [address]Dr. Swathi Reis PEEP [facility] Comment on above: Performed By: #### A BG ####[facility] Zhrknpvgum87[address] [place] [address]Dr. Swathi Reis pH (Bld) 7.440 [pH] Normal 7.350-7.450 [facility] Comment on above: Performed By: #### A BG ####[facility] Izpuwyzfph[address] [place], [place] [address]Dr. Swathi Reis PIP [facility] Comment on above: Performed By: #### A BG ####[facility] Tdcddftzjg[address] [place], [place] [address]Dr. Swathi Reis PS [facility] Comment on above: Performed By: #### A BG ####[facility] Qjyxxfqdug[address] [place], [place] [address]Dr. Swathi Reis PUNCTURE SITE RR Normal [facility] Comment on above: Performed By: #### A BG ####[facility] Fiabctxgds[address] [place], [place] [address]Dr. Swathi Reis RATE [facility] Comment on above: Performed By: #### A BG ####[facility] Tyjtnlajsk[address] [place] [address]Dr. Swathi Reis VENT MODE [facility] Comment on above: Performed By: #### A BG ####[facility] Aoofxxdnzh[address] [place], [place] [address]Dr. Swathi Reis [place] [facility] Comment on above: Performed By: #### A BG ####[facility] Llxbnenbfh[address] [place], [place] [address]Dr. Swathi Reis BNPon 07-05-2022 Natriuretic peptide B (Bld) [Mass/Vol] 2257.0 pg/mL Critically high <=1,800.0 [facility] Comment on above: Performed By: #### H STROPN, CMP, BNP ####[facility] [address]aw[address]odkq6[address] [place] [id number]. Swathi Reis CARDIAC TRINA 3-6on 2 CK [Catalytic activity/Vol] 54 U/L Normal 26-192 [facility] Comment on above: Performed By: #### C MREP ####[facility] O[address]ovdvs[address] [place] [address]Dr. Swathi Reis CK.MB [Mass/Vol] ng/mL Normal <=3.60 [facility] Comment on above: Performed By: #### C MREP ####[facility] Vbewdtrcbk[address] [place], [place] [address]Dr. Swathi Reis HSTROP 18.6 pg/mL Normal 4.0-51.3 [facility] Comment on above: Result Comment: CUT- OFF POINTS HAVE BEEN ESTABLISHED BASED ON THE FOURTH UNIVERSAL DEFINITIONS OF MYOCARDIALINFARCTION. THE UPPER REFERENCE LIMIT (URL) OF TROPONIN, DEFINED THE 99TH PERCENTILE OFcTnI DISTRIBUTION IN A REFERENCE POPULATION, HAS BEEN CONFIRMED THE DECISION THRESHOLDFOR CO DIAGNOSIS. Performed By: #### C MREP ####[facility] Eskmnubabi[address] [place], [place] [address]Dr. Swathi Reis CK [Catalytic activity/Vol] 38 U/L Normal 26-192 [facility] Comment on above: Performed By: #### C MREP ####[facility] Pelqzfeojh24[address] [place] [phone]. Swathi Reis CK.MB [Mass/Vol] 0.51 ng/mL Normal <=3.60 [facility] Comment on above: Performed By: #### C MREP ####[facility] Lctyrksfxw4[address] [place] [address]Dr. Swathi Reis HSTROP 16.6 pg/mL Normal 4.0-51.3 [facility] Comment on above: Result Comment: CUT- OFF POINTS HAVE BEEN ESTABLISHED BASED ON THE FOURTH UNIVERSAL DEFINITIONS OF MYOCARDIALINFARCTION. THE UPPER REFERENCE LIMIT (URL) OF TROPONIN, DEFINED THE 99TH PERCENTILE OFcTnI DISTRIBUTION IN A REFERENCE POPULATION, HAS BEEN CONFIRMED THE DECISION THRESHOLDFOR CO DIAGNOSIS. Performed By: #### C MREP ####[facility] Msphiinvgn8217 [place] [address]Dr. Swathi Reis CBC W MANUAL DIFFon 07-05-20 22 ATYPICAL LYMPH # Normal [facility] Comment on above: Performed By: #### C NGA ####[facility] Bswrkivrao63[address] [place] [address]Dr. Swathi Reis ATYPICAL LYMPH % Normal [facility] Comment on above: Performed By: #### C NGA ####[facility] Tpcsjiitee[address] [place], [place] [address]Dr. Swathi Reis BAND # 0.4 103/ul Critically high 0.0-0.3 [facility] Comment on above: Performed By: #### C NGA ####[facility] Pvbblvdduz[address] [place], [place] [address]Dr. Yitracy Reis BAND % 2 % Normal 0-5 [facility] Comment on above: Performed By: #### C NGA ####[facility] Xbfdnltlej[address] [place], [place] [address]Dr. Swathi Reis BASOM # 0.00 103/ul Normal 0.00-0.10 [facility] Comment on above: Performed By: #### C NGA ####[facility] Mlwfkugqnx[address] [place], [place] [address]Dr. Swathi Reis BASOM % 0.0 % Critically low 0.2-2.0 [facility] Comment on above: Performed By: #### C JAUNMAN ####[facility] Bqggpkpodu[address] [place], [place] [address]Dr. Yilan Reis BLAST # Normal [facility] Comment on above: Performed By: #### C NGA ####[facility] Pipusgwvje[address] [place], [place] [address]Dr. Yilan Reis BLAST % Normal [facility] Comment on above: Performed By: #### C NGA ####[facility] Lvcrvjclkc6350 [place], [place] [address]Qq. Swathi Reis CORRECTED WBC Normal 4.0-11.0 [facility] Comment on above: Performed By: #### C NGA ####[facility] Cflfkhragu1003 [place], [place] [address]Pq. Swathi Reis EOS # 0.00 103/ul Normal 0.00-0.70 [facility] Comment on above: Performed By: #### C NGA ####[facility] Xgxhfbdswf1687 [place], [place] [address]Ft. Swathi Reis EOS% 0.0 % Critically low 0.9-7.0 [facility] Comment on above: Performed By: #### C NGA ####[facility] Ylgrkwkelm8324 [place] [phone]. Swathi Reis HCT 32.7 % Critically low 36.0-48.0 [facility] Comment on above: Performed By: #### C NGA ####[facility] Nebxenqjzr8649 [place], [place] [address]Ka. Swathi Reis HGB 10.6 g/dl Critically low 12.0-16.0 [facility] Comment on above: Performed By: #### C NGA ####[facility] Kumhtmdhwx1207 [place], [place] [address]Is. Swathi Reis LYMPHM # 0.84 103/ul Critically low 1.20-3.80 [facility] Comment on above: Performed By: #### C NGA ####[facility] Gvwgpteeba7245 [place], [place] [address]Ys. Swathi Reis LYMPHM% 4.0 % Critically low 20.5-60.0 [facility] Comment on above: Performed By: #### C NGA ####[facility] Bdoedsusvt6761 [place], [place] [address]Fr. Swathi Reis MCH 30.1 pg Normal 26.7-34.0 [facility] Comment on above: Performed By: #### C NGA ####[facility] Lkcwzzbhco3671 [place] [phone]. Swathi Reis MCHC 32.4 g/dl Normal 29.9-35.2 [facility] Comment on above: Performed By: #### C NGA ####[facility] Haacfpdjyb1654 [place] [phone]. Swathi Reis MCV 92.9 fL Normal 81.0-99.0 [facility] Comment on above: Performed By: #### C NGA ####[facility] Xyfzptebdw1076 [place] [phone]. Swathi Reis METAMYELOCYTE # Normal [facility] Comment on above: Performed By: #### C NGA ####[facility] Hfifmvwcfz7774 [place] [phone]. Swathi Reis METAMYELOCYTE % Normal [facility] Comment on above: Performed By: #### C NGA ####[facility] [address] [place], [place] [address]Dr. Swathi Reis MONOM# 1.88 103/ul Critically high 0.30-0.80 [facility] Comment on above: Performed By: #### Kenney SYLVESTER ####[facility] Mnmpkyxefb9996 [place] [phone]. Swathi Reis MONOM% 9.0 % Normal 1.7-12.0 [facility] Comment on above: Performed By: #### Kenney SYLVESTER ####[facility] Gcufrpcorw4360 [place] [phone]. Swathi Reis MPV 10.6 fL Normal 9.5-13.5 [facility] Comment on above: Performed By: #### C NGA ####[facility] Npnazmqtjj8699 [place] [phone]. Swathi Reis MYELOCYTE # Normal [facility] Comment on above: Performed By: #### C NGA ####[facility] Qfacqihxeg1829 [place] [phone]. Swathi Reis MYELOCYTE % Normal [facility] Comment on above: Performed By: #### Kenney SYLVESTER ####[facility] Aezovlubvd5225 [place], [place] [address]Rg. Swathi Reis NRBC Normal [facility] Comment on above: Performed By: #### C NGA ####[facility] Mwxxxyobii0566 [place], [place] [address]Ny. Swathi Reis PLT 335 103/ul Normal 150-450 [facility] Comment on above: Performed By: #### C NGA ####[facility] Bfnigdojgc4727 [place], [place] [address]Ks. Swathi Reis RBC 3.52 106/ul Critically low 4.20-5.40 [facility] Comment on above: Performed By: #### C NGA ####[facility] Kgmohubiec3444 [place] [phone]. Swathi Reis RDW 13.5 % Normal 11.0-15.0 [facility] Comment on above: Performed By: #### C NGA ####[facility] Cmlelbceta8376 [place] [phone]. Swathi Reis SEG # 17.76 103/ul Critically high 1.40-6.50 [facility] Comment on above: Performed By: #### C NGA ####[facility] Tgttkxcgml1239 [place] [phone]. Swathi Reis SEG % 85.0 % Critically high 43.0-75.[address] [facility] Comment on above: Performed By: #### C NGA ####[facility] Gzccxpkpqs5459 [place] [phone]. Swathi Reis WBC 20.9 103/ul Critically high 4.0-11.0 [facility] Comment on above: Performed By: #### C NGA ####[facility] Furdrfeaqe7220 [place] [phone]. Swathi Reis CTA CHEST WO W CONon 022 CTA CHEST WO W CON Normal [facility] CULTURE BLOODon 07-05-2022 Microscopic examination of blood, culture Culture Observations: NO GROWTH AT 5 DAYS. Normal [facility] Comment on above: Performed By: #### B LDCX2 ####[facility] Fgguwyosyq6196 [place], [place] [address]Wz. Swathi Reis Microscopic examination of blood, culture Culture Observations: NO GROWTH AT 5 DAYS. Normal [facility] Comment on above: Performed By: #### B LDCX1 ####[facility] Wepmjtpiee4735 [place], [place] [address]Hf. Swathi Reis Covid-19 PCR (CVDTBH)on 06-23 SARS-CoV-2 (COVID-19) RNA ÓSCAR+probe Ql (Unsp spec) Not detected Normal NOT DETECTED [facility] Comment on above: Result Comment: When diagnostic [...] for this test is supported by the [place] [employer] of [employer] and Human Service's declaration that [...] be used). Performed By: #### C VDTBH ####[facility] Exfaxypibs3087 [place] [phone]. Swathi Reis D-DIMERon 07-05-2022 D-DIMER 2.17 mg/L FEU Critically high <=0.59 [facility] Comment on above: Performed By: #### P T, DDIM, PTT ####[facility] Tfsbsjwron5280 [place] [phone] Reis D-DIMER COMMENTS SEE BELOW Normal [facility] Comment on above: Result Comment: Incr [...] Performed By: #### P T, DDIM, PTT ####[facility] Hlvlvmkggk0296 [place] [address]Dr. Swathi Reis LACTATE/LACTIC ACIDon 2021 Lactate [Moles/Vol] 2.5 mmol/L Critically high 0.4-1.9 [facility] Comment on above: Performed By: #### L ACT ####[facility] Frzsgzzilg[address] [place], [place] [address]Dr. Swathi Reis Lactate [Moles/Vol] 3.2 mmol/L Critically high 0.4-1.9 [facility] Comment on above: Performed By: #### L ACT ####[facility] Hihwtfojmx[address] [place], [place] [address]Dr. Swathi Reis POINT OF CARE GLUCOSEon 06-23 Glucose [Mass/Vol] 179 mg/dL Critically high 74-106 [facility] Comment on above: Performed By: #### P OCGLUC ####[facility] Fjylzkxgml[address] [place], [place] [address]Dr. Swathi Reis PROF 14(COMP METB)on 022 Albumin [Mass/Vol] 3.2 g/dL Critically low 3.4-5.0 [facility] Comment on above: Performed By: #### H STROPN, CMP, BNP ####[facility] Ushvgfwvnr4192 [place] [address]Dr. Swathi Reis Albumin/Globulin [Mass ratio] 0.8 {ratio} Normal [facility] Comment on above: Performed By: #### H STROPN, CMP, BNP ####[facility] Avwlgpmsiy2535 [place] [address]Dr. Swathi Reis ALP [Catalytic activity/Vol] 98 U/L Normal 46-116 [facility] Comment on above: Performed By: #### H STROPN, CMP, BNP ####[facility] Agtxbuhqvv1740 [place] [address]Dr. Swathi Reis ALT [Catalytic activity/Vol] 18 U/L Normal 14-59 [facility] Comment on above: Performed By: #### H STROPN, CMP, BNP ####[facility] Iufaavlfvf0902 [place] [address]Dr. Inessatracy Reis Anion gap [Moles/Vol] 11.5 mmol/L Normal [facility] Comment on above: Performed By: #### H STROPN, CMP, BNP ####[facility] Mbzvpchjwy3829 [place] [address]Dr. Swathi Reis AST [Catalytic activity/Vol] 16 U/L Normal 15-37 [facility] Comment on above: Performed By: #### H STROPN, CMP, BNP ####[facility] Cbdderrzka[address] [place], [place] [address]Dr. Swathi Reis Bilirubin [Mass/Vol] 0.7 mg/dL Normal 0.2-1.0 [facility] Comment on above: Performed By: #### H STROPN, CMP, BNP ####[facility] Wwxmvynurp[address] [place], [place] [address]Dr. Swathi Reis Calcium [Mass/Vol] 9.3 mg/dL Normal 8.5-10.1 [facility] Comment on above: Performed By: #### H STROPN, CMP, BNP ####[facility] Rkiscxegtv0173 [place] [address]Dr. Swathi Reis Chloride [Moles/Vol] 100 mmol/L Normal 98-107 [facility] Comment on above: Performed By: #### H STROPN, CMP, BNP ####[facility] Ajghuanxxm3770 [place] [address]Dr. Swathi Reis CO2 [Moles/Vol] 29.5 mmol/L Normal 21.0-32.0 [facility] Comment on above: Performed By: #### H STROPN, CMP, BNP ####[facility] Nihkvufcbw[address] [place], [place] [address]Dr. Swatih Reis Creatinine [Mass/Vol] 1.66 mg/dL Critically high 0.55-1.02 [facility] Comment on above: Performed By: #### H STROPN, CMP, BNP ####[facility] Zmysieuqdb6067 [place] [address]Dr. Swathi Reis EGFR-AF FIJIAN 36 mL/min/1.73m2 Critically low >=60 [facility] Comment on above: Performed By: #### H STROPN, CMP, BNP ####[facility] Ffpaixoacj7881 [place] [address]Dr. Swathi Reis EGFR-NON AF FIJIAN 30 mL/min/1.73m2 Critically low >=60 [facility] Comment on above: Performed By: #### H STROPN, CMP, BNP ####[facility] Hdhtfvnbhb6534 [place] [address]Dr. Swathi Reis Globulin (S) [Mass/Vol] 4.0 g/dL Normal [facility] Comment on above: Performed By: #### H STROPN, CMP, BNP ####[facility] Xpvqxjsmgx0546 [place] [address]Dr. Swathi Reis Glucose [Mass/Vol] 247 mg/dL Critically high 74-106 [facility] Comment on above: Performed By: #### H STROPN, CMP, BNP ####[facility] Sjopagcyzt3205 [place] [address]Dr. Swathi Reis Potassium [Moles/Vol] 4.0 mmol/L Normal 3.5-5.1 [facility] Comment on above: Performed By: #### H STROPN, CMP, BNP ####[facility] Bmdinthwlt0861 [place] [address]Dr. Swathi Reis Protein [Mass/Vol] 7.2 g/dL Normal 6.4-8.2 [facility] Comment on above: Performed By: #### H STROPN, CMP, BNP ####[facility] Zifjfdaews[address] [place], [place] [address]Dr. Swathi Reis Sodium [Moles/Vol] 137 mmol/L Normal 136-145 [facility] Comment on above: Performed By: #### H STROPN, CMP, BNP ####[facility] Yetafukjrx6357 [place] [address]Dr. Swathi Reis Urea nitrogen [Mass/Vol] 22.0 mg/dL Critically high 7.0-18.0 [facility] Comment on above: Performed By: #### H STROPN, CMP, BNP ####[facility] Vtdmdioahe[address] [place], [place] [address]Dr. Swathi Reis Urea nitrogen/Creatinine [Mass ratio] 13.3 mg/mg Normal [facility] Comment on above: Performed By: #### H STROPN, CMP, BNP ####[facility] [address]vupibpma[address] [place], [place] [address]Dr. Swathi Reis PROTIMEon 07-05-2022 INR Coag (PPP) [Relative time] 1.10 {INR} Normal [facility] Comment on above: Performed By: #### P T, DDIM, PTT ####[facility] Cblqhkebjs[address] [place], [place] [address]Dr. Swathi Reis INR GUIDELINES SEE BELOW Normal [facility] Comment on above: Result Comment: HARRIETT RED INR: 2.0 - 3.0 CONDITIONS NOT LISTED BELOW 2.5 - 3.5 FOR PROSTHETIC HEART VALVE REPLACEMENT 2.5 - 3.5 RECURRENT THROMBOSIS Performed By: #### P T, DDIM, PTT ####[facility] Qknuezwqlm[address] [place], [place] [address]Dr. Swathi Reis PT Coag (PPP) [Time] 11.8 s Critically high 9.0-11.6 [facility] Comment on above: Performed By: #### P T, DDIM, PTT ####[facility] Tuodpgwpto[address] [place], [place] [address]Dr. Swathi Reis PTTon 07-05-2022 aPTT Coag (Bld) [Time] 27.2 s Normal 22.3-36.2 [facility] Comment on above: Performed By: #### P T, DDIM, PTT ####[facility] Oduagmcbsq[address] [place], [place] [address]Dr. Swathi Reis TROPONIN, HIGH SENSITIVITYon 07-05-2022 HSTROP 16.2 pg/mL Normal 4.0-51.3 [facility] Comment on above: Result Comment: CUT- OFF POINTS HAVE BEEN ESTABLISHED BASED ON THE FOURTH UNIVERSAL DEFINITIONS OF MYOCARDIALINFARCTION. THE UPPER REFERENCE LIMIT (URL) OF TROPONIN, DEFINED THE 99TH PERCENTILE OFcTnI DISTRIBUTION IN A REFERENCE POPULATION, HAS BEEN CONFIRMED THE DECISION THRESHOLDFOR CO DIAGNOSIS. Performed By: #### H STROPN, CMP, BNP ####[facility] Gunxakhqos4062 [place], [place] [address]Oe. Swathi Reis XR CHEST 1 Von 07-05-2022 XR CHEST 1 V Normal [facility] MRI WRIST LT WO CONon 2021 MRI WRIST LT WO CON Normal [facility] XR ANKLE LT MIN 3 Von 2021 XR ANKLE LT MIN 3 V Normal [facility] XR WRIST LT MIN 3 Von 2021 XR WRIST LT MIN 3 V Normal [facility] Progress Noteson 05-19-2022 Case Mgr Authentication Interface Message Text EMERGENCY TRIAGE, TREAT AND TRANSPORT (ET3) DOCUMENTATION OF TELEHEALTH VISIT Date / Time: 05/19/2022 / 1130 Name: Andrew Barros : 1945 SSN: (Not on file) EMS Agency: [facility] [x] Verbal consent obtained [] [...] Completed by: Kristian Mcwilliams MD Normal [facility] [email or web address] [facility] CBC AUTO DIFFon 05-07-2022 BASO # 0.1 103/ul Normal 0.0-0.1 [facility] Comment on above: Performed By: #### C BC ####[facility] Uojzdsovtc[address] [place] [address]Dr. Swathi Reis Basophils/100 WBC (Bld) 0.5 % Normal 0.2-2.0 [facility] Comment on above: Performed By: #### C BC ####[facility] Wvkrgmhs[address] [place], [place] [address]Dr. Swathi Reis EO # 0.1 103/ul Normal 0.0-0.7 [facility] Comment on above: Performed By: #### C BC ####[facility] Nhdiigmhmu[address]46 [place] [address]Dr. Swathi Reis Eosinophils/100 WBC (Bld) 1.1 % Normal 0.9-7.0 [facility] Comment on above: Performed By: #### C BC ####[facility] Vcneutpjiu6572 [place] [address]Dr. Swathi Reis Erythrocyte distribution width (RBC) [Ratio] 13.2 % Normal 11.0-15.0 [facility] Comment on above: Performed By: #### C BC ####[facility] Zeqfkkfknp25[address] [place] [address]Dr. Swathi Reis Hematocrit (Bld) [Volume fraction] 40.9 % Normal 36.0-48.0 [facility] Comment on above: Performed By: #### C BC ####[facility] Ylluzkfwxg7280 [place] [address]Dr. Swathi Reis Hemoglobin (Bld) [Mass/Vol] 12.8 g/dL Normal 12.0-16.0 [facility] Comment on above: Performed By: #### C BC ####[facility] Yyrwifmwpk1420 [place] [address]Dr. Swathi Chato IG # 0.04 10e3/ul Critically high 0.00-0.03 [facility] Comment on above: Performed By: #### C BC ####[facility] Yrfudibyrg6[address] [place] [address]Dr. Inessatracy Reis IG % 0.4 % Normal 0.0-0.5 [facility] Comment on above: Performed By: #### C BC ####[facility] Cctrvavjml55[address] [place] [address]Dr. Swathi Chato LYMPH # 1.4 103/ul Normal 1.2-3.8 [facility] Comment on above: Performed By: #### C BC ####[facility] Dlqileyzjt0188 [place] [address]Dr. Swathi Chato Lymphocytes/100 WBC (Bld) 13.2 % Critically low 20.5-60.0 [facility] Comment on above: Performed By: #### C BC ####[facility] Wtorhzjmbi3971 [place] [address]Dr. Inessatracy Reis MANUAL DIFF REQ NO Normal [facility] Comment on above: Performed By: #### C BC ####[facility] Gsyxkocsuu8117 [place] [address]Dr. Swathi Chato MCH (RBC) [Entitic mass] 29.5 pg Normal 26.7-34.0 [facility] Comment on above: Performed By: #### C BC ####[facility] Acuxhoprxx[address] [place], [place] [id number]. Swathi Reis MCHC (RBC) [Mass/Vol] 31.3 g/dL Normal 29.9-35.2 [facility] Comment on above: Performed By: #### C BC ####[facility] Mptzgiiesx9418 [place] [phone]. Swathi Reis MCV (RBC) [Entitic vol] 94.2 fL Normal 81.0-99.0 [facility] Comment on above: Performed By: #### C BC ####[facility] Giufpqwmwe1889 [place] [phone]. Swathi Reis MONO # 0.9 103/ul Critically high 0.3-0.8 [facility] Comment on above: Performed By: #### C BC ####[facility] Pwloyblspv0820 [place] [phone]. Inessatracy Reis Monocytes/100 WBC (Bld) 8.9 % Normal 1.7-12.0 [facility] Comment on above: Performed By: #### C BC ####[facility] Axymipffxk2515 [place] [phone]. Swathi Reis NEUT # 7.8 103/ul Critically high 1.4-6.5 [facility] Comment on above: Performed By: #### C BC ####[facility] Peznxelemz6944 [place] [phone]. Swathi Chato Neutrophils/100 WBC (Bld) 75.9 % Critically high 43.0-75.0 [facility] Comment on above: Performed By: #### C BC ####[facility] Rbovdfruho9716 [place] [phone]. Swathi Reis Platelet mean volume (Bld) [Entitic vol] 10.7 fL Normal 9.5-13.5 [facility] Comment on above: Performed By: #### C BC ####[facility] Qbpypnaomr0353 [place] [phone]. Swathi Chato PLT 257 103/ul Normal 150-450 [facility] Comment on above: Performed By: #### C BC ####[facility] Qgpiinkwtn6402 [place], [place] [address]Va. Swathi Reis RBC 4.34 106/ul Normal 4.20-5.40 [facility] Comment on above: Performed By: #### C BC ####[facility] Beufqjlmua7922 [place], [place] [address]Xp. Swathi Reis WBC 10.2 103/ul Normal 4.0-11.0 [facility] Comment on above: Performed By: #### C BC ####[facility] Lqvkpeupwj5665 [place] [phone]. Swathi Reis Covid-19 PCR (CVDTBH)on 04-23 SARS-CoV-2 (COVID-19) RNA ÓSCAR+probe Ql (Unsp spec) Not detected Normal NOT DETECTED [facility] Comment on above: Result Comment: This test is not yet approved or cleared by the [place] FDA. When there are no FDA-approved or cleared tests available, and other criteria are met, FDA can make tests available under an emergency access mechanism called an Emergency Use Authorization (EUA). The EUA for this test is supported by the [place] of Health and Human Service's (HHS's) declaration [...] with SARS-CoV-2. Performed By: #### C VDTBH ####[facility] Rihdlgghwb6557 [place] [phone]. Swathi Reis PROF CHEM 8 (BAS METB)on Anion gap [Moles/Vol] 12.0 mmol/L Normal [facility] Comment on above: Performed By: #### B MP ####[facility] Ddnejkbcyr4872 [place] [phone]. Swathi Reis Calcium [Mass/Vol] 9.7 mg/dL Normal 8.5-10.1 [facility] Comment on above: Performed By: #### B MP ####[facility] Fipsbpowwl9230 [place] [address]Dr. Swathi Reis Chloride [Moles/Vol] 102 mmol/L Normal 98-107 [facility] Comment on above: Performed By: #### B MP ####[facility] Speuhigntq[address] [place], [place] [address]Dr. Swathi Reis CO2 [Moles/Vol] 31.8 mmol/L Normal 21.0-32.0 [facility] Comment on above: Performed By: #### B MP ####[facility] Iewvreoobz8[address] [place], [place] [address]Dr. Swathi Reis Creatinine [Mass/Vol] 1.22 mg/dL Critically high 0.55-1.02 [facility] Comment on above: Performed By: #### B MP ####[facility] Nngpyqkvqr[address] [place], [place] [address]Dr. Swathi Chato EGFR-AF FIJIAN 52 mL/min/1.73m2 Critically low >=60 [facility] Comment on above: Performed By: #### B MP ####[facility] Eylgevxvqv86[address] [place], [place] [address]Dr. Swathi Chato EGFR-NON AF FIJIAN 43 mL/min/1.73m2 Critically low >=60 [facility] Comment on above: Performed By: #### B MP ####[facility] Nnadqesghg[address] [place], [place] [address]Dr. Swathi Reis Glucose [Mass/Vol] 249 mg/dL Critically high 74-106 [facility] Comment on above: Performed By: #### B MP ####[facility] Ugfgyhdpqt99[address] [place], [place] [address]Dr. Swathi Reis Potassium [Moles/Vol] 3.8 mmol/L Normal 3.5-5.1 [facility] Comment on above: Performed By: #### B MP ####[facility] Vfnavniwqh[address] [place], [place] [address]Dr. Swathi Reis Sodium [Moles/Vol] 142 mmol/L Normal 136-145 [facility] Comment on above: Performed By: #### B MP ####[facility] Tqwtcuabsw[address] [place], [place] [address]Dr. Swathi Reis Urea nitrogen [Mass/Vol] 21.0 mg/dL Critically high 7.0-18.0 [facility] Comment on above: Performed By: #### B MP ####[facility] Imqsytvibg[address] [place], [place] [address]Dr. Swathi Reis Urea nitrogen/Creatinine [Mass ratio] 17.2 mg/mg Normal [facility] Comment on above: Performed By: #### B MP ####[facility] Tcawbbrzjq[address] [place], [place] [address]Dr. Swathi Reis CBC AUTO DIFFon 01-12-2022 BASO # 0.1 103/ul Normal 0.0-0.1 [facility] Comment on above: Performed By: #### C BC ####[facility] Pvykerllgo[address] [place], [place] [address]Dr. Swathi Chato Basophils/100 WBC (Bld) 0.7 % Normal 0.2-2.0 [facility] Comment on above: Performed By: #### C BC ####[facility] Clsukzgdyx[address] [place], [place] [address]Dr. Swathi Reis EO # 0.3 103/ul Normal 0.0-0.7 [facility] Comment on above: Performed By: #### C BC ####[facility] Zkfxqnaivo[address] [place], [place] [address]Dr. Swathi Chato Eosinophils/100 WBC (Bld) 2.9 % Normal 0.9-7.0 [facility] Comment on above: Performed By: #### C BC ####[facility] Mkcfbtngkp[address] [place], [place] [address]Dr. Swathi Reis Erythrocyte distribution width (RBC) [Ratio] 13.2 % Normal 11.0-15.0 [facility] Comment on above: Performed By: #### C BC ####[facility] Svbnowufmf6969 [place] [address]Dr. Swathi Reis Hematocrit (Bld) [Volume fraction] 35.9 % Critically low 36.0-48.0 [facility] Comment on above: Performed By: #### C BC ####[facility] Zcydltnvzx1306 [place] [address]Dr. Swathi Chato Hemoglobin (Bld) [Mass/Vol] 11.6 g/dL Critically low 12.0-16.0 [facility] Comment on above: Performed By: #### C BC ####[facility] Qccvsinnoq0919 [place] [address]Dr. Inessatracy Chato IG # 0.03 10e3/ul Normal 0.00-0.03 [facility] Comment on above: Performed By: #### C BC ####[facility] Dyewdwuwjs9732 [place] [address]Dr. Swathi Reis IG % 0.4 % Normal 0.0-0.5 [facility] Comment on above: Performed By: #### C BC ####[facility] Zzzqupodzu6329 [place] [address]Dr. Inessatracy Reis LYMPH # 1.5 103/ul Normal 1.2-3.8 [facility] Comment on above: Performed By: #### C BC ####[facility] Bwjlhzmtno8748 [place] [address]Dr. Swathi Reis Lymphocytes/100 WBC (Bld) 17.6 % Critically low 20.5-60.0 [facility] Comment on above: Performed By: #### C BC ####[facility] Pztgcttkrg5723 [place] [address]Dr. Inessatracy Reis MANUAL DIFF REQ NO Normal [facility] Comment on above: Performed By: #### C BC ####[facility] [address]skwm[address] [place], [place] [address]Dr. Swathi Reis MCH (RBC) [Entitic mass] 30.0 pg Normal 26.7-34.0 [facility] Comment on above: Performed By: #### C BC ####[facility] Wgfmqajmvr5547 [place] [phone]. Swathi Reis MCHC (RBC) [Mass/Vol] 32.3 g/dL Normal 29.9-35.2 [facility] Comment on above: Performed By: #### C BC ####[facility] Hmznjcembi0864 [place] [phone]. Swathi Reis MCV (RBC) [Entitic vol] 92.8 fL Normal 81.0-99.0 [facility] Comment on above: Performed By: #### C BC ####[facility] Brnvoulzcc1927 [place] [phone]. Swathi Reis MONO # 1.1 103/ul Critically high 0.3-0.8 [facility] Comment on above: Performed By: #### C BC ####[facility] Cbduoftwdz7053 [place] [address]Dr. Swathi Chato Monocytes/100 WBC (Bld) 12.3 % Critically high 1.7-12.0 [facility] Comment on above: Performed By: #### C BC ####[facility] Sl[address]zczlhlu[address] [place], [place] [address]Dr. Swathi Reis NEUT # 5.7 103/ul Normal 1.4-6.5 [facility] Comment on above: Performed By: #### C BC ####[facility] Tijfxgfkag8584 [place] [phone]. Swathi Reis Neutrophils/100 WBC (Bld) 66.1 % Normal 43.0-75.0 [facility] Comment on above: Performed By: #### C BC ####[facility] Toyibuxcya2743 [place] [phone]. Swathi Reis Platelet mean volume (Bld) [Entitic vol] 10.9 fL Normal 9.5-13.5 [facility] Comment on above: Performed By: #### C BC ####[facility] Ngxvearitn8436 [place] [phone]. Swathi Chato PLT 246 103/ul Normal 150-450 [facility] Comment on above: Performed By: #### C BC ####[facility] Aopjvtklau8097 [place] [phone]. Swathi Reis RBC 3.87 106/ul Critically low 4.20-5.[address] [facility] Comment on above: Performed By: #### C BC ####[facility] Octudtovge3769 [place] [phone]. Swathi Reis WBC 8.6 103/ul Normal 4.0-11.0 [facility] Comment on above: Performed By: #### C BC ####[facility] Ezsffnfixe6118 [place] [phone]. Swathi Reis CRPon 01-12-2022 CRP [Mass/Vol] mg/L Normal <=1.0 [facility] Comment on above: Performed By: #### C MP, CRP ####[facility] Gkubmswomw0051 [place] [address]Dr. Swathi Reis POINT OF CARE GLUCOSEon 12-23 Glucose [Mass/Vol] 95 mg/dL Normal 74-106 [facility] Comment on above: Performed By: #### P OCGLUC ####[facility] Kyoyoogfjn3845 [place] [address]Dr. Swathi Reis PROF 14(COMP METB)on 022 Albumin [Mass/Vol] 2.9 g/dL Critically low 3.4-5.0 [facility] Comment on above: Performed By: #### C MP, CRP ####[facility] Juchvqynwf9660 [place] [address]Dr. Swathi Reis Albumin/Globulin [Mass ratio] 0.8 {ratio} Normal [facility] Comment on above: Performed By: #### C MP, CRP ####[facility] Ydnaoidpkb3738 [place] [address]Dr. Swathi Reis ALP [Catalytic activity/Vol] 91 U/L Normal 46-116 [facility] Comment on above: Performed By: #### C MP, CRP ####[facility] Qgtmqkudqm0195 [place] [address]Dr. Swathi Reis ALT [Catalytic activity/Vol] 18 U/L Normal 14-59 [facility] Comment on above: Performed By: #### C MP, CRP ####[facility] Mqjlbvubnj9806 [place] [address]Dr. Swathi Reis Anion gap [Moles/Vol] 9.1 mmol/L Normal [facility] Comment on above: Performed By: #### C MP, CRP ####[facility] Aximgmvdyr9675 [place] [address]Dr. Swathi Reis AST [Catalytic activity/Vol] 17 U/L Normal 15-37 [facility] Comment on above: Performed By: #### C MP, CRP ####[facility] Utscntwpub0283 [place] [address]Dr. Swathi Chato Bilirubin [Mass/Vol] 0.6 mg/dL Normal 0.2-1.3 [facility] Comment on above: Performed By: #### C MP, CRP ####[facility] Uyjqyndntd[address] [place], [place] [address]Dr. Swathi Chato Calcium [Mass/Vol] 8.6 mg/dL Normal 8.5-10.1 [facility] Comment on above: Performed By: #### C MP, CRP ####[facility] Otcycwewkb[address] [place], [place] [address]Dr. Swathi Chato Chloride [Moles/Vol] 104 mmol/L Normal 98-107 [facility] Comment on above: Performed By: #### C MP, CRP ####[facility] Cswkhpnydc8[address] [place], [place] [address]Dr. Swathi Reis CO2 [Moles/Vol] 32.1 mmol/L Critically high 22.0-30.0 [facility] Comment on above: Performed By: #### C MP, CRP ####[facility] Tznquyuzns[address] [place], [place] [address]Dr. Swathi Chato Creatinine [Mass/Vol] 0.96 mg/dL Normal 0.52-1.04 [facility] Comment on above: Performed By: #### C MP, CRP ####[facility] Fxxzphggao9[address] [place], [place] [address]Dr. Swathi Chato EGFR-AF FIJIAN >60 Normal >=60 [facility] Comment on above: Performed By: #### C MP, CRP ####[facility] Xhagpmeupu6215 [place] [address]Dr. Swathi Reis EGFR-NON AF FIJIAN 56 mL/min/1.73m2 Critically low >=60 [facility] Comment on above: Performed By: #### C MP, CRP ####[facility] Zheoyayuzr2145 [place] [address]Dr. Swathi Reis Globulin (S) [Mass/Vol] 3.5 g/dL Normal [facility] Comment on above: Performed By: #### C MP, CRP ####[facility] Bieesngrci[address] [place], [place] [address]Dr. Swathi Reis Glucose [Mass/Vol] 114 mg/dL Critically high 74-106 [facility] Comment on above: Performed By: #### C MP, CRP ####[facility] Fysqyvrdhb9[address] [place], [place] [address]Dr. Swathi Reis Potassium [Moles/Vol] 3.2 mmol/L Critically low 3.4-5.0 [facility] Comment on above: Performed By: #### C MP, CRP ####[facility] Unfumisbcc[address] [place], [place] [address]Dr. Swathi Reis Protein [Mass/Vol] 6.4 g/dL Normal 6.1-8.2 [facility] Comment on above: Performed By: #### C MP, CRP ####[facility] Urpwtcehzs265[address] [place], [place] [address]Dr. Swathi Reis Sodium [Moles/Vol] 142 mmol/L Normal 137-145 [facility] Comment on above: Performed By: #### C MP, CRP ####[facility] Oeyvalxqwp235[address] [place], [place] [address]Dr. Swathi Reis Urea nitrogen [Mass/Vol] 20.0 mg/dL Critically high 7.0-18.0 [facility] Comment on above: Performed By: #### C MP, CRP ####[facility] Ocjocrfpek[address] [place], [place] [address]Dr. Swathi Reis Urea nitrogen/Creatinine [Mass ratio] 20.8 mg/mg Normal [facility] Comment on above: Performed By: #### C MP, CRP ####[facility] Wwyteuzuoo[address] [place], [place] [address]Dr. Swathi Reis T3, TOTAL (TRIIODOTHYRONINE) on 01-12-2022 T3, TOTAL 79 ng/dL Normal 71-180 [facility] Comment on above: Performed By: #### T 3TOTAL ####[facility] Jzvlnghszs[address] [place], [place] [address]Dr. Swathi Reis CBC AUTO DIFFon 01-11-2022 BASO # 0.1 103/ul Normal 0.0-0.1 [facility] Comment on above: Performed By: #### C BC ####[facility] Jeumijgxkl66[address] [place], [place] [address]Dr. Swathi Chato Basophils/100 WBC (Bld) 0.5 % Normal 0.2-2.0 [facility] Comment on above: Performed By: #### C BC ####[facility] [address]riqzpejwp[address] [place], [place] [address]Dr. Swathi Reis EO # 0.1 103/ul Normal 0.0-0.7 [facility] Comment on above: Performed By: #### C BC ####[facility] Gbhsgdoujq70[address] [place], [place] [address]Dr. Swathi Chato Eosinophils/100 WBC (Bld) 1.1 % Normal 0.9-7.0 [facility] Comment on above: Performed By: #### C BC ####[facility] Zprbetmdam[address] [place], [place] [address]Dr. Swathi Reis Erythrocyte distribution width (RBC) [Ratio] 13.1 % Normal 11.0-15.0 [facility] Comment on above: Performed By: #### C BC ####[facility] Wxtbsdnhzb[address] [place], [place] [address]Dr. Swathi Reis Hematocrit (Bld) [Volume fraction] 39.1 % Normal 36.0-48.0 [facility] Comment on above: Performed By: #### C BC ####[facility] Fiihcixhny7184 [place] [phone]. Swathi Reis Hemoglobin (Bld) [Mass/Vol] 12.7 g/dL Normal 12.0-16.0 [facility] Comment on above: Performed By: #### C BC ####[facility] Mlfqppidyz0614 [place] [phone]. Swathi Reis IG # 0.04 10e3/ul Critically high 0.00-0.03 [facility] Comment on above: Performed By: #### C BC ####[facility] Sjvnwtabms[address] [place], [place] [address]Dr. Swathi Reis IG % 0.4 % Normal 0.0-0.5 [facility] Comment on above: Performed By: #### C BC ####[facility] Hzzodenmsf[address] [place], [place] [address]Dr. Swathi Reis LYMPH # 1.4 103/ul Normal 1.2-3.8 [facility] Comment on above: Performed By: #### C BC ####[facility] Yamdxmioek3485 [place] [address]Dr. Swathi Reis Lymphocytes/100 WBC (Bld) 12.4 % Critically low 20.5-60.0 [facility] Comment on above: Performed By: #### C BC ####[facility] Yaceurdbkh86[address] [place], [place] [address]Dr. Swathi Reis MANUAL DIFF REQ NO Normal [facility] Comment on above: Performed By: #### C BC ####[facility] Qdtxxcvzvl8[address] [place], [place] [address]Dr. Swathi Reis MCH (RBC) [Entitic mass] 30.0 pg Normal 26.7-34.0 [facility] Comment on above: Performed By: #### C BC ####[facility] Rejviaqqlf[address] [place], [place] [address]Dr. Swathi Reis MCHC (RBC) [Mass/Vol] 32.5 g/dL Normal 29.9-35.2 [facility] Comment on above: Performed By: #### C BC ####[facility] Pmehrhmlop7477 [place] [phone]. Swathi Reis MCV (RBC) [Entitic vol] 92.4 fL Normal 81.0-99.0 [facility] Comment on above: Performed By: #### C BC ####[facility] Hungomyjem4380 [place] [id number]. Swathi Reis MONO # 1.1 103/ul Critically high 0.3-0.8 [facility] Comment on above: Performed By: #### C BC ####[facility] Wamxquwkrn6810 [place] [phone]. Swathi Reis Monocytes/100 WBC (Bld) 10.1 % Normal 1.7-12.0 [facility] Comment on above: Performed By: #### C BC ####[facility] Zomluxhgkm[address] [place], [place] [address]Dr. Swathi Reis NEUT # 8.3 103/ul Critically high 1.4-6.5 [facility] Comment on above: Performed By: #### C BC ####[facility] [address]gybowxof[address] [place], [place] [address]Dr. Swathi Reis Neutrophils/100 WBC (Bld) 75.5 % Critically high 43.0-75.0 [facility] Comment on above: Performed By: #### C BC ####[facility] Fnndbttvbx[address] [place], [place] [address]Dr. Swathi Reis Platelet mean volume (Bld) [Entitic vol] 11.3 fL Normal 9.5-13.5 [facility] Comment on above: Performed By: #### C BC ####[facility] Derohmdhhc[address] [place], [place] [address]Dr. Swathi Reis PLT 292 103/ul Normal 150-450 [facility] Comment on above: Performed By: #### C BC ####[facility] Kwikjiwmsr[address] [place], [place] [address]Dr. Swathi Reis RBC 4.23 106/ul Normal 4.20-5.40 [facility] Comment on above: Performed By: #### C BC ####[facility] Bmcbohvxpc3037 [place], [place] [address]Ec. Swathi Reis WBC 11.0 103/ul Normal 4.0-11.0 [facility] Comment on above: Performed By: #### C BC ####[facility] Dhuqzxxplc7368 [place], [place] [address]Qo. Swathi Reis CT HEAD WO CONon 01-11-2022 CT HEAD WO CON Normal [facility] CULTURE URINEon 01-11-2022 CULTURE URINE Culture Observations : LIGHT GROWTH OF MIXED GENITAL ELEONORA. NO POTENTIAL PATHOGENS SEEN. Normal [facility] Comment on above: Performed By: #### U RCX ####[facility] Xzedotpeaz3184 [place], [place] [address]Li. Swathi Reis Covid-19 PCR (CVDTB)on 12-23 SARS-CoV-2 (COVID-19) RNA ÓSCAR+probe Ql (Unsp spec) Not detected Normal NOT DETECTED [facility] Comment on above: Result Comment: When diagnostic [...] for this test is supported by the [place] of Health and Human Service's declaration that [...] be used). Performed By: #### C VDTBH ####[facility] Mdfaijmwgy7699 [place], [place] [address]Rb. Swathi Reis EEGon 01-11-2022 EEG Normal [facility] ER URINE PROFILEon Bilirubin Ql (U) Negative Normal NEGATIVE [facility] Comment on above: Performed By: #### E RUR ####[facility] Vbrvssamvt6871 [place] [address]Dr. Inessatracy Reis Clarity (U) CLEAR Normal CLEAR [facility] Comment on above: Performed By: #### E RUR ####[facility] Qhgusdmjmo2902 [place] [address]Dr. Swathi Reis Color (U) LT. YELLOW Normal YELLOW [facility] Comment on above: Performed By: #### E RUR ####[facility] [facility] Inxreciycr[address] [place], [place] [address]Dr. Swathi Reis ERUAHD A micrscopic examina tion will be performed if indicated. Normal The [facility] Comment on above: Performed By: #### E RUR ####[facility] Uprkdkgopf[address] [place], [place] [address]Dr. Swathi Reis Glucose Ql (U) Negative Normal NEGATIVE The [facility] Comment on above: Performed By: #### E RUR ####[facility] Bdkxjlwmxt[address] [place], [place] [address]Dr. Swathi Chato Hemoglobin Ql (U) Negative Normal NEGATIVE The [facility] Comment on above: Performed By: #### E RUR ####[facility] Lmqovwrzws[address] [place], [place] [address]Dr. Swathi Reis Ketones Ql (U) Negative Normal NEGATIVE The [facility] Comment on above: Performed By: #### E RUR ####[facility] Ltfzzdiqnp[address] [place], [place] [address]Dr. Inessatracy Reis LEUKOCYTES Negative Normal NEGATIVE The [facility] Comment on above: Performed By: #### E RUR ####[facility] Vbthxdylul[address] [place], [place] [address]Dr. Swathi Reis Nitrite Ql (U) Negative Normal NEGATIVE The [facility] Comment on above: Performed By: #### E RUR ####[facility] Kvijnlxipm[address] [place], [place] [address]Dr. Swathi Reis pH (U) 6.0 [pH] Normal 5-9 [facility] Comment on above: Performed By: #### E RUR ####[facility] Atyqbyvtok[address] [place] [address]Dr. Swathi Reis SPEC GRAVITY 1.010 Normal 1.005-<=1.0 25 [facility] Comment on above: Performed By: #### E RUR ####[facility] Hnwdayqgcq52[address] [place] [address]Dr. Inessatracy Chato UA PROTEIN Negative Normal NEGATIVE/ TRACE The [facility] Comment on above: Performed By: #### E RUR ####[facility] Igzgojjdew[address] [place], [place] [address]Dr. Swathi Chato UR MICRO IND NOT INDICATED Normal The [facility] Comment on above: Performed By: #### E RUR ####[facility] Nbnhbtmaxf[address] [place], [place] [address]Dr. Swathi Chato Urobilinogen Qn (U) 0.2 {Sánchez'U}/dL Normal 0.2 - 1. 0 [facility] Comment on above: Performed By: #### E RUR ####[facility] Dshgvfmenz[address] [place], [place] [address]Dr. Swathi Chato LACTATE/LACTIC ACIDon 2021 Lactate [Moles/Vol] 0.9 mmol/L Normal 0.7-2.0 [facility] Comment on above: Performed By: #### L ACT ####[facility] Clmuyzlfrj[address] [place], [place] [address]Dr. Inessatracy Chato Lactate [Moles/Vol] 0.9 mmol/L Normal 0.7-2.0 [facility] Comment on above: Performed By: #### L ACT ####[facility] Lrbmypijuq[address] [place], [place] [address]Dr. Inessatracy Chato POINT OF CARE GLUCOSEon 12-23 Glucose [Mass/Vol] 175 mg/dL Critically high 74-106 [facility] Comment on above: Performed By: #### P OCGLUC ####[facility] Sxycrsfezb[address] [place], [place] [address]Dr. Swathi Reis Glucose [Mass/Vol] 116 mg/dL Critically high 74-106 T [facility] Comment on above: Performed By: #### P OCGLUC ####[facility] Ufupqcrssr[address] [place] [address]Dr. Swathi Reis PROF 14(COMP METB)on 022 Albumin [Mass/Vol] 3.3 g/dL Critically low 3.4-5.0 Th [facility] Comment on above: Performed By: #### H RAFFI, CMP ####[facility] Whhjxsjbep44[address] [place] [address]Dr. Swathi Reis Albumin/Globulin [Mass ratio] 0.8 {ratio} Normal [facility] Comment on above: Performed By: #### H RAFFI, CMP ####[facility] Edpmqgopse[address] [place], [place] [address]Dr. Swathi Reis ALP [Catalytic activity/Vol] 110 U/L Normal 46-116 [facility] Comment on above: Performed By: #### H RAFFI, CMP ####[facility] Fhalzhrkub[address] [place], [place] [address]Dr. Swathi Reis ALT [Catalytic activity/Vol] 20 U/L Normal 14-59 [facility] Comment on above: Performed By: #### Barbara NUGENT, CMP ####[facility] Iyotqsipst[address] [place], [place] [address]Dr. Swathi Reis Anion gap [Moles/Vol] 15.9 mmol/L Normal [facility] Comment on above: Performed By: #### H RAFFI, CMP ####[facility] Qngyeocbsy2548 [place] [address]Dr. Swathi Reis AST [Catalytic activity/Vol] 24 U/L Normal 15-37 [facility] Comment on above: Performed By: #### Barbara NUGENT, CMP ####[facility] Nmuvsccgzg25[address] [place], [place] [address]Dr. Swathi Reis Bilirubin [Mass/Vol] 0.5 mg/dL Normal 0.2-1.3 [facility] Comment on above: Performed By: #### H RAFFI, CMP ####[facility] Ngtkscvczy[address] [place], [place] [address]Dr. Swathi Reis Calcium [Mass/Vol] 9.5 mg/dL Normal 8.5-10.1 [facility] Comment on above: Performed By: #### H RAFFI, CMP ####[facility] Wodnzkokvh[address] [place] [address]Dr. Swathi Reis Chloride [Moles/Vol] 100 mmol/L Normal 98-107 [facility] Comment on above: Performed By: #### H RAFFI, CMP ####[facility] Nihblxeuic6[address] [place] [address]Dr. Swathi Reis CO2 [Moles/Vol] 27.8 mmol/L Normal 22.0-30.0 [facility] Comment on above: Performed By: #### H RAFFI, CMP ####[facility] Yznzwngyxr[address] [place], [place] [address]Dr. Swathi Reis Creatinine [Mass/Vol] 1.21 mg/dL Critically high 0.52-1.04 [facility] Comment on above: Performed By: #### H RAFFI, CMP ####[facility] Jvmjeiqwlr[address] [place], [place] [address]Dr. Swathi Reis EGFR-AF FIJIAN 52 mL/min/1.73m2 Critically low >=60 [facility] Comment on above: Performed By: #### H RAFFI, CMP ####[facility] Tkmfgldloe[address] [place], [place] [address]Dr. Swathi Reis EGFR-NON AF FIJIAN 43 mL/min/1.73m2 Critically low >=60 [facility] Comment on above: Performed By: #### H STROPN, CMP ####[facility] Artmvixhxj6[address] [place] [address]Dr. Swathi Reis Globulin (S) [Mass/Vol] 4.1 g/dL Normal [facility] Comment on above: Performed By: #### H STROPN, CMP ####[facility] Pqgpriaoof25[address] [place] [address]Dr. Swathi Reis Glucose [Mass/Vol] 195 mg/dL Critically high 74-106 [facility] Comment on above: Performed By: #### H STROPN, CMP ####[facility] Nggmiygyov16[address] [place] [address]Dr. Swathi Reis Potassium [Moles/Vol] 3.7 mmol/L Normal 3.4-5.0 [facility] Comment on above: Performed By: #### H STROPN, CMP ####[facility] Grhpsfmtiu[address] [place] [address]Dr. Swathi Reis Protein [Mass/Vol] 7.4 g/dL Normal 6.1-8.2 The [facility] Comment on above: Performed By: #### H STROPN, CMP ####[facility] Wipztfhhhb24[address] [place] [address]Dr. Swathi Reis Sodium [Moles/Vol] 140 mmol/L Normal 137-145 [facility] Comment on above: Performed By: #### H STROPN, CMP ####[facility] Glbfnzucer[address] [place], [place] [address]Dr. Swathi Reis Urea nitrogen [Mass/Vol] 22.0 mg/dL Critically high 7.0-18.0 [facility] Comment on above: Performed By: #### H STROPN, CMP ####[facility] Pumjmwejmw[address] [place] [address]Dr. Swathi Reis Urea nitrogen/Creatinine [Mass ratio] 18.2 mg/mg Normal [facility] Comment on above: Performed By: #### H STROPN, CMP ####[facility] Jdevbhcayw6305 [place] [address]Dr. Swathi Reis T4on 01-11-2022 T4 [Mass/Vol] 9.10 ug/dL Normal 5.53-11.00 The [facility] Comment on above: Performed By: #### T SH, T4 ####[facility] Umwlnhvbwz[address] [place], [place] [address]Dr. Swathi Reis TROPONIN, HIGH SENSITIVITYon 01-11-2022 HSTROP 13.7 pg/mL Normal 4.0-35.5 [facility] Comment on above: Result Comment: CUT- OFF POINTS HAVE BEEN ESTABLISHED BASED ON THE FOURTH UNIVERSAL DEFINITIONS OF MYOCARDIALINFARCTION. THE UPPER REFERENCE LIMIT (URL) OF TROPONIN, DEFINED THE 99TH PERCENTILE OFcTnI DISTRIBUTION IN A REFERENCE POPULATION, HAS BEEN CONFIRMED THE DECISION THRESHOLDFOR CO DIAGNOSIS. Performed By: #### H STROPN, CMP ####[facility] Kkqktuuuwx[address] [place], [place] [address]Dr. Swathi Reis TSHon 01-11-2022 TSH 2.618 uIU/mL Normal 0.470-4.680 The [facility] Comment on above: Performed By: #### T SH, T4 ####[facility] Rumyervvpc[address] [place], [place] [address]Dr. Swathi Reis TSH RANGE SEE BELOW Normal [facility] Comment on above: Result Comment: <0.3 4 UIU/ml HYPERTHYROID 0.34-5.60 UIU/ml EUTHYROID >5.60 UIU/ml HYPOTHYROID Performed By: #### T SH, T4 ####[facility] Cgvdpxinwm[address] [place], [place] [address]Dr. Swathi Reis CBC AUTO DIFFon 01-09-2022 BASO # 0.1 103/ul Normal 0.0-0.1 [facility] Comment on above: Performed By: #### C BC ####[facility] Qlfrzcrtoh[address] [place], [place] [address]Dr. Swathi Reis Basophils/100 WBC (Bld) 0.6 % Normal 0.2-2.0 [facility] Comment on above: Performed By: #### C BC ####[facility] [address]zxklfkdvk[address] [place], [place] [address]Dr. Swathi Reis EO # 0.2 103/ul Normal 0.0-0.7 [facility] Comment on above: Performed By: #### C BC ####[facility] Koglwoxepq8[address] [place], [place] [address]Dr. Swathi Reis Eosinophils/100 WBC (Bld) 2.7 % Normal 0.9-7.0 [facility] Comment on above: Performed By: #### C BC ####[facility] Aukttwgtwv94[address] [place], [place] [address]Dr. Swathi Reis Erythrocyte distribution width (RBC) [Ratio] 13.2 % Normal 11.0-15.0 [facility] Comment on above: Performed By: #### C BC ####[facility] [address]gwrtrz[address] [place] [address]Dr. Swathi Reis Hematocrit (Bld) [Volume fraction] 39.7 % Normal 36.0-48.0 [facility] Comment on above: Performed By: #### C BC ####[facility] Pxpcakyrsn98[address] [place] [address]Dr. Swathi Reis Hemoglobin (Bld) [Mass/Vol] 12.7 g/dL Normal 12.0-16.0 [facility] Comment on above: Performed By: #### C BC ####[facility] Mynzvubldv[address] [place], [place] [address]Dr. Swathi Reis IG # 0.04 10e3/ul Critically high 0.00-0.03 [facility] Comment on above: Performed By: #### C BC ####[facility] Oxidljuykd264[address] [place], [place] [address]Dr. Swathi Reis IG % 0.4 % Normal 0.0-0.5 [facility] Comment on above: Performed By: #### C BC ####[facility] Djyzrqqivb[address] [place], [place] [address]Dr. Swathi Reis LYMPH # 1.4 103/ul Normal 1.2-3.8 [facility] Comment on above: Performed By: #### C BC ####[facility] Urdecqfxcc[address] [place], [place] [address]Dr. Swathi Reis Lymphocytes/100 WBC (Bld) 15.9 % Critically low 20.5-60.0 [facility] Comment on above: Performed By: #### C BC ####[facility] Iygejsfgpl[address] [place], [place] [address]Dr. Swathi Reis MANUAL DIFF REQ NO Normal [facility] Comment on above: Performed By: #### C BC ####[facility] Oeqyjbsfjp4[address] [place] [address]Dr. Swathi Reis MCH (RBC) [Entitic mass] 30.0 pg Normal 26.7-34.0 [facility] Comment on above: Performed By: #### C BC ####[facility] Qtrdwjqfnq13[address] [place] [address]Dr. Swathi Reis MCHC (RBC) [Mass/Vol] 32.0 g/dL Normal 29.9-35.2 [facility] Comment on above: Performed By: #### C BC ####[facility] Zcwyjncqmi[address] [place] [address]Dr. Swathi Reis MCV (RBC) [Entitic vol] 93.9 fL Normal 81.0-99.0 [facility] Comment on above: Performed By: #### C BC ####[facility] [address]tft[address]sw[address] [place], [place] [address]DrOtto Reis MONO # 0.9 103/ul Critically high 0.3-0.8 The [facility] Comment on above: Performed By: #### C BC ####[facility] Zbrorjwfza[address] [place], [place] [address]Dr. Swathi Reis Monocytes/100 WBC (Bld) 9.7 % Normal 1.7-12.0 [facility] Comment on above: Performed By: #### C BC ####[facility] [address]zq[address] [place], [place] [address]Dr. Swathi Reis NEUT # 6.3 103/ul Normal 1.4-6.5 [facility] Comment on above: Performed By: #### C BC ####[facility] [address]wubthtf[address] [place], [place] [address]Dr. Swathi Reis Neutrophils/100 WBC (Bld) 70.7 % Normal 43.0-75.0 [facility] Comment on above: Performed By: #### C BC ####[facility] St[address]foljpt[address] [place], [place] [address]DrOtto Reis Platelet mean volume (Bld) [Entitic vol] 10.7 fL Normal 9.5-13.5 [facility] Comment on above: Performed By: #### C BC ####[facility] [address]trpepwza[address] [place], [place] [address]Dr. Swathi Reis PLT 269 103/ul Normal 150-450 [facility] Comment on above: Performed By: #### C BC ####[facility] Srcffqkoma7[address] [place] [address]Dr. Swathi Reis RBC 4.23 106/ul Normal 4.20-5.40 [facility] Comment on above: Performed By: #### C BC ####[facility] Sgnuhquilq11[address] [place] [id number]. Swathi Reis WBC 8.9 103/ul Normal 4.0-11.0 [facility] Comment on above: Performed By: #### C BC ####[facility] Trmkyhimqz[address] [place] [address]Dr. Swathi Reis FREE T3on 01-09-2022 FREE T3 2.19 pg/mlL Critically low 2.77-5.[address] [facility] Comment on above: Performed By: #### T SH, T4, FT3, LIPID, CMP ####[facility] [address]zrwuysm[address] [place] [address]Dr. Swathi Reis GLYCOHEMOGLOBIN A1Con 2021 ADA RECOMMENDATION ADA THERAPEUTIC TARG ET 6.0 - 7.0 ACTION SUGGESTED > 7.0 Normal [facility] Comment on above: Performed By: #### A 1C ####[facility] Lahdjguyyu[address] [place] [address]Dr. Swathi Reis Glucose [Mass/Vol] 137 mg/dL Normal [facility] Comment on above: Performed By: #### A 1C ####[facility] Atiqvxnueb0487 [place] [address]Dr. Swathi Reis HbA1c (Bld) [Mass fraction] 6.4 % Critically high <=6.0 [facility] Comment on above: Performed By: #### A 1C ####[facility] Rnhzncqqou15[address] [place] [address]Dr. Swathi Reis LIPID PROFILEon 01-09-2022 CHOL-HDL RATIO NORM SEE BELOW Normal [facility] Comment on above: Result Comment: 3.3 - 4.4 LOW RISK 4.4 - 7.1 AVERAGE RISK 7.1 - 11.0 MODERATE RISK >11.0 HIGH RISK Performed By: #### T SH, T4, FT3, LIPID, CMP ####[facility] Zehocfvhjw25[address] [place] [address]Dr. Swathi Reis Cholesterol [Mass/Vol] 238 mg/dL Critically high <=200 [facility] Comment on above: Performed By: #### T SH, T4, FT3, LIPID, CMP ####[facility] Gstctdnpdm8999 [place] [address]Dr. Swathi Reis Cholesterol in HDL [Mass/Vol] 95 mg/dL Critically high 40-60 [facility] Comment on above: Performed By: #### T SH, T4, FT3, LIPID, CMP ####[facility] Yaqiqleszv[address] [place], [place] [address]Dr. Swathi Reis Cholesterol in LDL [Mass/Vol] 121.0 mg/dL Normal [facility] Comment on above: Performed By: #### T SH, T4, FT3, LIPID, CMP ####[facility] Lqrd[address]zwk[address] [place], [place] [address]Dr. Swathi Reis Cholesterol.total/Ch olesterol in HDL [Mass ratio] 2.5 {ratio} Normal [facility] Comment on above: Performed By: #### T SH, T4, FT3, LIPID, CMP ####[facility] [address]qosjesf[address] [place], [place] [address]Dr. Swathi Reis HDL NORMAL > or = 60 mg/dl - LO W CARDIOVASCULAR RISK <40 mg/dl - HIGH CARDIOVASCULAR RISK Normal [facility] Comment on above: Performed By: #### T SH, T4, FT3, LIPID, CMP ####[facility] Tcqzwqmulk[address] [place] [address]Dr. Swathi Reis LDL CALC NORMAL SEE BELOW Normal The [facility] Comment on above: Result Comment: <100 mg/dl OPTIMAL 100 - 129 mg/dl NEAR OR ABOVE OPTIMAL 130 - 159 mg/dl BORDERLINE HIGH 160 - 189 mg/dl HIGH >190 mg/dl VERY HIGH Performed By: #### T SH, T4, FT3, LIPID, CMP ####[facility] Wmaqxuzibv14[address] [place] [address]Dr. Swathi Reis Triglyceride [Mass/Vol] 110 mg/dL Normal <=150 [facility] Comment on above: Performed By: #### T SH, T4, FT3, LIPID, CMP ####[facility] Puecbvfhmp[address] [place] [address]Dr. Swathi Reis VLDL CALC 22.0 mg/dL Normal [facility] Comment on above: Performed By: #### T SH, T4, FT3, LIPID, CMP ####[facility] Hlnizsrneb2644 [place] [address]Dr. Swathi Reis PROF 14(COMP METB)on 022 Albumin [Mass/Vol] 3.5 g/dL Normal 3.4-5.0 [facility] Comment on above: Performed By: #### T SH, T4, FT3, LIPID, CMP ####[facility] [address]duyvypli[address] [place], [place] [address]Dr. Swathi Reis Albumin/Globulin [Mass ratio] 0.9 {ratio} Normal [facility] Comment on above: Performed By: #### T SH, T4, FT3, LIPID, CMP ####[facility] Gdmcaascnp[address] [place], [place] [address]Dr. Swathi Reis ALP [Catalytic activity/Vol] 112 U/L Normal 46-116 [facility] Comment on above: Performed By: #### T SH, T4, FT3, LIPID, CMP ####[facility] Gmjbagkmpa4[address] [place] [address]Dr. Swathi Reis ALT [Catalytic activity/Vol] 14 U/L Normal 14-59 [facility] Comment on above: Performed By: #### T SH, T4, FT3, LIPID, CMP ####[facility] Owpvpoxjqx7844 [place] [address]Dr. Swathi Reis Anion gap [Moles/Vol] 10.4 mmol/L Normal [facility] Comment on above: Performed By: #### T SH, T4, FT3, LIPID, CMP ####[facility] Nyykvqaymy2493 [place] [address]Dr. Swathi Reis AST [Catalytic activity/Vol] 18 U/L Normal 15-37 [facility] Comment on above: Performed By: #### T SH, T4, FT3, LIPID, CMP ####[facility] Swzbrmnzqp[address] [place], [place] [address]Dr. Swathi Reis Bilirubin [Mass/Vol] 0.6 mg/dL Normal 0.2-1.3 [facility] Comment on above: Performed By: #### T SH, T4, FT3, LIPID, CMP ####[facility] [address]xiealpzfu[address] [place], [place] [address]Dr. Swathi Reis Calcium [Mass/Vol] 9.4 mg/dL Normal 8.5-10.1 [facility] Comment on above: Performed By: #### T SH, T4, FT3, LIPID, CMP ####[facility] [address]ptmiwsky[address] [place], [place] [address]Dr. Swathi Reis Chloride [Moles/Vol] 101 mmol/L Normal 98-107 [facility] Comment on above: Performed By: #### T SH, T4, FT3, LIPID, CMP ####[facility] Zfaidldvut[address] [place], [place] [address]Dr. Swathi Reis CO2 [Moles/Vol] 33.2 mmol/L Critically high 22.0-30.0 [facility] Comment on above: Performed By: #### T SH, T4, FT3, LIPID, CMP ####[facility] [address]zqnzsiyyl[address] [place], [place] [address]Dr. Swathi Reis Creatinine [Mass/Vol] 1.13 mg/dL Critically high 0.52-1.04 [facility] Comment on above: Performed By: #### T SH, T4, FT3, LIPID, CMP ####[facility] Oqwic[address]obh[address] [place], [place] [address]Dr. Swathi Reis EGFR-AF FIJIAN 57 mL/min/1.73m2 Critically low >=60 [facility] Comment on above: Performed By: #### T SH, T4, FT3, LIPID, CMP ####[facility] Hndphokhyi[address] [place], [place] [address]Dr. Swathi Reis EGFR-NON AF FIJIAN 47 mL/min/1.73m2 Critically low >=60 [facility] Comment on above: Performed By: #### T SH, T4, FT3, LIPID, CMP ####[facility] Fbvowuszkj69[address] [place] [address]Dr. Swathi Reis Globulin (S) [Mass/Vol] 4.1 g/dL Normal [facility] Comment on above: Performed By: #### T SH, T4, FT3, LIPID, CMP ####[facility] Momeqyrzso[address] [place] [address]Dr. Swathi Reis Glucose [Mass/Vol] 144 mg/dL Critically high 74-106 [facility] Comment on above: Performed By: #### T SH, T4, FT3, LIPID, CMP ####[facility] Kncpfdqlpn3499 [place] [address]Dr. Swathi Reis Potassium [Moles/Vol] 3.6 mmol/L Normal 3.4-5.0 [facility] Comment on above: Performed By: #### T SH, T4, FT3, LIPID, CMP ####[facility] Afanezceqd[address] [place], [place] [address]Dr. Swathi Reis Protein [Mass/Vol] 7.6 g/dL Normal 6.1-8.2 [facility] Comment on above: Performed By: #### T SH, T4, FT3, LIPID, CMP ####[facility] Avmchgjsnt7225 [place] [address]Dr. Swathi Reis Sodium [Moles/Vol] 141 mmol/L Normal 137-145 [facility] Comment on above: Performed By: #### T SH, T4, FT3, LIPID, CMP ####[facility] Smjhzpxigi3347 [place] [address]Dr. Swathi Reis Urea nitrogen [Mass/Vol] 22.0 mg/dL Critically high 7.0-18.0 [facility] Comment on above: Performed By: #### T SH, T4, FT3, LIPID, CMP ####[facility] [address]lbq[address] [place], [place] [address]Dr. Swathi Reis Urea nitrogen/Creatinine [Mass ratio] 19.5 mg/mg Normal [facility] Comment on above: Performed By: #### T SH, T4, FT3, LIPID, CMP ####[facility] Yupqrgbhxf8[address] [place] [address]Dr. Swathi Reis T4on 01-09-2022 T4 [Mass/Vol] 8.80 ug/dL Normal 5.53-11.00 [facility] Comment on above: Performed By: #### T SH, T4, FT3, LIPID, CMP ####[facility] [address]aezzjgorf9352 [place] [address]Dr. Inessatracy Chato TSHon 01-09-2022 TSH 3.176 uIU/mL Normal 0.470-4.680 [facility] Comment on above: Performed By: #### T SH, T4, FT3, LIPID, CMP ####[facility] [address]dsvqnuck[address] [place], [place] [address]Dr. Swathi Reis TSH RANGE SEE BELOW Normal [facility] Comment on above: Result Comment: <0.3 4 UIU/ml HYPERTHYROID 0.34-5.60 UIU/ml EUTHYROID >5.60 UIU/ml HYPOTHYROID Performed By: #### T SH, T4, FT3, LIPID, CMP ####[facility] [address]etxmyyl[address] [place], [place] [address]Dr. Swathi Reis VITAMIN D 25 OHon 01-09-2022 VIT D 25-OH 64.4 ng/mL Normal [facility] Comment on above: Performed By: #### V ITAD ####[facility] [address]xovuedr[address] [place], [place] [address]Dr. Swathi Reis VIT D RANGES SEE BELOW Normal [facility] Comment on above: Result Comment: <20 ng/mL Vit D deficient 20 - <30 ng/mL Vit D insufficient 30 - 100 ng/mL Vit D sufficient >100 ng/mL Potential Toxicity Performed By: #### V ITAD ####[facility] Bxmajgxsvr7[address] [place] [address]Dr. Swathi Reis MG MAMM DIAGNOSTIC 3D GISELE CA Don 01-05-2022 MG MAMM DIAGNOSTIC 3D GISELE CAD Normal [facility] CT head/brain wo conon 12-27 CT head/brain wo con [facility] Main [place] [address] [place] [address] CT Scan Report Signed Patient: Andrew Barros MR#: [id number] : 1945 Acct:[id number] Age/Sex: 76 / F ADM Date: 12/27/21 Loc: CT Room: Type: [facility] Attending Dr: Brayden Hernandez MD Ordering Provider: [...] M.D.12/27/2021 1:17 PM Dictation Location: [place] [address] Transcribed By: [place] 12/27/21 1317 Dictated By: Tex Cameron Jr, MD 12/27/21 1310 Signed By: 12/27/[address] [facility] FRESH FROZ PLASMAon 03-03-20 22 FRESH FROZ PLASMA Normal [facility] Comment on above: Performed By: #### F ####[facility] [address]emfpqilxo[address] [place], [place] [address] Reis CT head/brain wo conon 11-17 CT head/brain wo con [facility] [place] [address] CT Scan Report Signed Patient: Andrew Barros MR#: [id number] : 1945 Acct:[id number] Age/Sex: 76 / F ADM Date: 11/17/21 Loc: CT Room: Type: [facility] Attending Dr: Brayden Hernandez MD Ordering Provider: [...] Henny Mckeon M.D.11/17/2021 1:35 PM Dictation Location: [place] [address] Transcribed By: SOLOMON 11/17/211334 Dictated By: Henny Mckeon MD 11/17/21 133 Signed By: 11/17/211334 [facility] Basic Metabolic Panelon 10-24 Calcium [Mass/Vol] 8.9 mg/dL Normal 8.2-10.2 [facility] Comment on above: Performed By: #### P T #### [facility] [address] Chloride [Moles/Vol] 94 mmol/L Low 95-114 [facility] Comment on above: Performed By: #### P T #### [address] CO2 [Moles/Vol] 22.6 mmol/L Normal 22.0-30.0 [facility] Comment on above: Performed By: #### P T #### [address] Creatinine [Mass/Vol] 1.38 mg/dL High 0.44-1.03 [facility] Comment on above: Performed By: #### P T #### [address] Creatinine Clr Calc Pharmacy 29.[address] [facility] Comment on above: Result Comment: PERF ORMED BY: [place] [address] PATHOLOGIST MACHINE QUILT STUFFER ADRIAN ROBERTSON M.D. Performed By: #### P T #### [address] Estimated GFR ( Rafaela [address] [facility] Comment on above: Result Comment: GFR estimated reference range: According to KDOQI guidelines, <60 ml/min/1.73m2 is sufficient to diagnose a patient with chronic kidney disease. Performed By: #### P T #### [address] Estimated GFR (Non- Am [address] [facility] Comment on above: Performed By: #### P T #### [place] [address] [place] Glucose [Mass/Vol] 297 mg/dL High 70-100 [facility] Comment on above: Result Comment: [place] om Glucose Reference Range is dependent on time and content of last meal. Glucose of more than 200 mg/dL in a nonstressed, ambulatory subject supports the diagnosis of Diabetes Mellitus. ADA recommended reference range Performed By: #### P T #### [facility] [address] [place] [id number] [place] Potassium [Moles/Vol] 3.7 mmol/L Normal 3.5-5.1 [facility] Comment on above: Performed By: #### P T #### [facility] [address] [place] [address] [place] Sodium [Moles/Vol] 132 mmol/L Low 136-146 [facility] Comment on above: Performed By: #### P T #### [facility] [address] [place] [id number] [place] Urea nitrogen [Mass/Vol] 19 mg/dL Normal 9-23 [facility] Comment on above: Performed By: #### P T #### [facility] [address] [place] [address] [place] Creatinine and Glomerular fi ltration rate.predicted panel (S/P/Bld)Ordered By: Shaka Echavarria on 11-11-2021 Creatinine [Mass/Vol] 1.38 mg/dL 0.44-1.03 [facility] Estimated glomerular filtrat ion rate (GFR) non- AmericanOrdered By: Shaka Echavarria on 11-11-2021 GFR/1.73 sq M.predicted among non-blacks MDRD (S/P/Bld) [Vol rate/Area] 37 mL/Min [facility] Glucose Glucometer (BldC) [M ass/Vol]Ordered By: Shaka Echavarria on 11-11-2021 Glucose [Mass/Vol] 233 mg/dL [facility] Comment on above: Random Glucose Refer ence Range is dependent on time and content of last meal. Glucose of more than 200 mg/dL in a nonstressed, ambulatory subject supports the diagnosis of Diabetes Mellitus. Glucose Poct Glucometerson 0 11-11-2021 Commemt1 Glu2: Cleaned Meter Normal [facility] Comment on above: Result Comment: PERF ORMED BY: [place] [address] PATHOLOGIST MACHINE QUILT STUFFER ADRIAN ROBERTSON M.D. Performed By: #### P T #### [address] Glucose [Mass/Vol] 233 mg/dL Normal [facility] Comment on above: Result Comment: [place] om Glucose Reference Range is dependent on time and content of last meal. Glucose of more than 200 mg/dL in a nonstressed, ambulatory subject supports the diagnosis of Diabetes Mellitus. Performed By: #### P T #### [address] Commemt1 Glu2: Cleaned Meter [facility] Comment on above: Result Comment: PERF ORMED BY: [place] [address] PATHOLOGIST MACHINE QUILT STUFFER ADRIAN ROBERTSON M.D. Performed By: #### P T #### [address] Glucose [Mass/Vol] 127 mg/dL Normal [facility] Comment on above: Result Comment: [place] om Glucose Reference Range is dependent on time and content of last meal. Glucose of more than 200 mg/dL in a nonstressed, ambulatory subject supports the diagnosis of Diabetes Mellitus. Performed By: #### P T #### [address] No Panel InformationOrdered By: Shaka Echavarria on 11-11-2021 Bedside Glucose Comment Glu2: cleaned meter [facility] Estimated GFR () 45 mL/Min [facility] Comment on above: GFR estimated refere nce range: According to KDOQI guidelines, <60 ml/min/1.73m2 is sufficient to diagnose a patient with chronic kidney disease. Pharmacy Creatinine Clearance (Chem 29.48 [facility] Serum or plasma calcium missy urement (mass/volume)Ordered By: Shaka Echavarria on 11-11-2021 Calcium [Mass/Vol] 8.9 mg/dL 8.2-10.2 [facility] Serum or plasma chloride ken surement (moles/volume)Ordered By: Shaka Echavarria on 11-11-2021 Chloride [Moles/Vol] 94 mmol/L 95-114 [facility] Serum or plasma glucose missy urement (mass/volume)Ordered By: ShakaVazquez on 11-11-2021 Glucose [Mass/Vol] 297 mg/dL 70-100 [facility] Comment on above: [place]: 179 on -[id number] recommended reference rangeRandom Glucose Reference Range is dependent on time and content of last meal. Glucose of more than 200 mg/dL in a nonstressed, ambulatory subject supports the diagnosis of Diabetes Mellitus. Serum or plasma potassium me asurement (moles/volume)Ordered By: Shaka [facility] on 11-11-2021 Potassium [Moles/Vol] 3.7 mmol/L 3.5-5.1 [facility] Serum or plasma sodium measu rement (moles/volume)Ordered By: Shaka [facility] on 11-11-2021 Sodium [Moles/Vol] 132 mmol/L 136-146 [facility] Serum or plasma total carbon dioxide measurement (moles/volume)Ordered By: Shaka [facility] on 11-11-2021 CO2 [Moles/Vol] 22.6 mmol/L 22.0-30.0 [facility] Serum or plasma urea nitroge n measurement (mass/volume)Ordered By: Shaka Echavarria on 11-11-2021 Urea nitrogen [Mass/Vol] 19 mg/dL 9-23 [facility] Basic Metabolic Panelon 10-24 Calcium [Mass/Vol] 8.9 mg/dL Normal 8.2-10.2 [facility] Comment on above: Performed By: #### B MP, PT, CBC #### [address] Chloride [Moles/Vol] 96 mmol/L Normal 95-114 [facility] Comment on above: Performed By: #### B MP, PT, CBC #### [facility] [address] CO2 [Moles/Vol] 29.6 mmol/L Normal 22.0-30.0 [facility] Comment on above: Performed By: #### B MP, PT, CBC #### [facility] [address] Creatinine [Mass/Vol] 0.89 mg/dL Normal 0.44-1.03 [facility] Comment on above: Performed By: #### B MP, PT, CBC #### [place] [address] [place] Creatinine Clr Calc Pharmacy 45.[address] [facility] Comment on above: Result Comment: PERF ORMED BY: [place] [address] PATHOLOGIST MACHINE QUILT STUFFER ADRIAN ROBERTSON M.D. Performed By: #### B MP, PT, CBC #### [address] Estimated GFR ( Rafaela > [address] [facility] Comment on above: Result Comment: GFR estimated reference range: According to KDOQI guidelines, <60 ml/min/1.73m2 is sufficient to diagnose a patient with chronic kidney disease. Performed By: #### B MP, PT, CBC #### [address] Estimated GFR (Non- Am > [address] [facility] Comment on above: Performed By: #### B MP, PT, CBC #### [place] [address] [place] Glucose [Mass/Vol] 179 mg/dL High 70-100 [facility] Comment on above: Result Comment: [place] om Glucose Reference Range is dependent on time and content of last meal. Glucose of more than 200 mg/dL in a nonstressed, ambulatory subject supports the diagnosis of Diabetes Mellitus. ADA recommended reference range Performed By: #### B MP, PT, CBC #### [place] [address] [place] Potassium [Moles/Vol] 3.1 mmol/L Low 3.5-5.1 [facility] Comment on above: Performed By: #### B MP, PT, CBC #### [facility] [address] Sodium [Moles/Vol] 137 mmol/L Normal 136-146 [facility] Comment on above: Performed By: #### B MP, PT, CBC #### [facility] [address] Urea nitrogen [Mass/Vol] 10 mg/dL Normal 9-23 [facility] Comment on above: Performed By: #### B MP, PT, CBC #### [facility] [address] Basophils Auto (Bld) [#/Vol] Ordered By: Salma Cortes on 11-10-2021 Basophils (Bld) [#/Vol] 0.0 10*3/uL 0.0-0.2 [facility] Basophils/100 WBC Auto (Bld) Ordered By: Salma Cortes on 11-10-2021 Basophils/100 WBC (Bld) 0.2 % [facility] Blood hemoglobin measurement (mass/volume)Ordered By: Salma Cortes on 11-10-2021 Hemoglobin (Bld) [Mass/Vol] 13.2 g/dL 11.8-15.4 [facility] Blood leukocytes automated c ount (number/volume)Ordered By: Salma Cortes on 11-10-2021 WBC (Bld) [#/Vol] 10.7 10*3/uL 4.5-11.[address] [facility] [address] head/brain wo conon 11-10 CT head/brain wo con [facility] Main [place] [address] [place] [address] CT Scan Report Signed Patient: Andrew Barros MR#: [id number] : 1945 Acct:[id number] Age/Sex: 76 / F ADM Date: 11/09/21 Loc: Room: [address] [place] [address] Type: ADM IN Attending Dr: Shaka Echavarria [...] Trina Watts M.D.11/10/2021 8:43 AM Dictation Location: [place] [address] Transcribed By: [place] 11/10/21842 Dictated By: Trina Watts II, MD 11/10/2140 Signed By: 11/10/[address] [facility] Complete Blood Count Auto Di ffon 11-10-2021 Basophils (Bld) [#/Vol] 0.0 10*3/uL Normal 0.0-0.2 [facility] Comment on above: Result Comment: PERF ORMED BY: [place] [address] PATHOLOGIST MACHINE QUILT STUFFER ADRIAN ROBERTSON M.D. Performed By: #### B MP, PT, CBC #### [facility] [address] Basophils/100 WBC (Bld) 0.2 % Normal . [facility] Comment on above: Performed By: #### B MP, PT, CBC #### [facility] [address] [place] [address] [place] Eosinophils (Bld) [#/Vol] 0.0 10*3/uL Normal 0.0-0.45 [facility] Comment on above: Performed By: #### B MP, PT, CBC #### [place] [address] [place] Eosinophils/100 WBC (Bld) 0.1 % Normal . [facility] Comment on above: Performed By: #### B MP, PT, CBC #### [facility] [address] [place] [address] Erythrocyte distribution width (RBC) [Ratio] 13.8 % Normal 11.9-15.3 [facility] Comment on above: Performed By: #### B MP, PT, CBC #### [place] [address] [place] Hematocrit (Bld) [Volume fraction] 39.1 % Normal 34.0-46.4 [facility] Comment on above: Performed By: #### B MP, PT, CBC #### [facility] [address] [place] [address] [place] Hemoglobin (Bld) [Mass/Vol] 13.2 g/dL Normal 11.8-15.4 [facility] Comment on above: Performed By: #### B MP, PT, CBC #### [place] [address] [place] Lymphocytes (Bld) [#/Vol] 1.3 10*3/uL Normal 1.00-4.8 [facility] Comment on above: Performed By: #### B MP, PT, CBC #### [address] Lymphocytes/100 WBC (Bld) 12.0 % Normal . [facility] Comment on above: Performed By: #### B MP, PT, CBC #### [address] MCH (RBC) [Entitic mass] 30.4 pg Normal 24.7-34.3 [facility] Comment on above: Performed By: #### B MP, PT, CBC #### [address] MCV (RBC) [Entitic vol] 90.0 fL Normal 80-100 [facility] Comment on above: Performed By: #### B MP, PT, CBC #### [address] Mean Corpuscular HGB Conc 33.8 g/dL Normal 32.0-35.0 [facility] Comment on above: Performed By: #### B MP, PT, CBC #### [address] Monocytes (Bld) [#/Vol] 1.2 10*3/uL High 0.0-0.8 [facility] Comment on above: Performed By: #### B MP, PT, CBC #### [address] Monocytes/100 WBC (Bld) 10.8 % Normal . [facility] Comment on above: Performed By: #### B MP, PT, CBC #### [address] Neutrophils (Bld) [#/Vol] 8.2 10*3/uL High 1.8-7.7 [facility] Comment on above: Performed By: #### B MP, PT, CBC #### [address] Neutrophils/100 WBC (Bld) 76.9 % Normal . [facility] Comment on above: Performed By: #### B MP, PT, CBC #### [facility] [address] Nucleated RBC/100 WBC (Bld) [Ratio] 0.1 % Normal 0-0.5 [facility] Comment on above: Performed By: #### B MP, PT, CBC #### [facility] [address] Platelet mean volume (Bld) [Entitic vol] 9.2 fL Normal 6.3-10.7 [facility] Comment on above: Performed By: #### B MP, PT, CBC #### [address] Platelets (Bld) [#/Vol] 261 10*3/uL Normal 150-450 [facility] Comment on above: Performed By: #### B MP, PT, CBC #### [address] RBC (Bld) [#/Vol] 4.35 10*6/uL Normal 3.60-5.00 [facility] Comment on above: Performed By: #### B MP, PT, CBC #### [address] WBC (Bld) [#/Vol] 10.7 10*3/uL Normal 4.5-11.0 [facility] Comment on above: Performed By: #### B MP, PT, CBC #### [place] [address] [place] Eosinophils Auto (Bld) [#/Vo l]Ordered By: Salma Cortes on 11-10-2021 Eosinophils (Bld) [#/Vol] 0.0 10*3/uL 0.0-0.45 [facility] Eosinophils/100 WBC Auto (Bl d)Ordered By: Salma Cortes on 11-10-2021 Eosinophils/100 WBC (Bld) 0.1 % [facility] Erythrocyte distribution wid th Auto (RBC) [Ratio]Ordered By: Salma Cortes on 11-10-2021 Erythrocyte distribution width (RBC) [Ratio] 13.8 % 11.9-15.3 [facility] Glucose Poct Glucometerson 0 11-10-2021 Glucose [Mass/Vol] 183 mg/dL Normal [facility] Comment on above: Result Comment: [facility] Glucose Reference Range is dependent on time and content of last meal. Glucose of more than 200 mg/dL in a nonstressed, ambulatory subject supports the diagnosis of Diabetes Mellitus. PERFORMED BY: [address] [address] PATHOLOGIST MACHINE QUILT STUFFER ADRIAN ROBERTSON M.D. Performed By: #### G LULS #### Point of Care testing , Glucose [Mass/Vol] 135 mg/dL Normal [facility] Comment on above: Result Comment: [facility] Glucose Reference Range is dependent on time and content of last meal. Glucose of more than 200 mg/dL in a nonstressed, ambulatory subject supports the diagnosis of Diabetes Mellitus. PERFORMED BY: [address] [place] [address] PATHOLOGIST MACHINE QUILT STUFFER ADRIAN ROBERTSON M.D. Performed By: #### G LULS #### Point of Care testing , Glucose [Mass/Vol] 235 mg/dL Normal [facility] Comment on above: Result Comment: [facility] Glucose Reference Range is dependent on time and content of last meal. Glucose of more than 200 mg/dL in a nonstressed, ambulatory subject supports the diagnosis of Diabetes Mellitus. PERFORMED BY: [facility] [address] [facility] [place] [address] PATHOLOGIST MACHINE QUILT STUFFER ADRIAN ROBERTSON M.D. Performed By: #### G LULS #### Point of Care testing , Glucose [Mass/Vol] 110 mg/dL Normal [facility] Comment on above: Result Comment: [facility] Glucose Reference Range is dependent on time and content of last meal. Glucose of more than 200 mg/dL in a nonstressed, ambulatory subject supports the diagnosis of Diabetes Mellitus. PERFORMED BY: [address] [place] [address] PATHOLOGIST MACHINE QUILT STUFFER ADRIAN ROBERTSON M.D. Performed By: #### G KIMBERLY #### Point of Care testing , Hematocrit Auto (Bld) [Volum e fraction]Ordered By: Salma Cortes on 11-10-2021 Hematocrit (Bld) [Volume fraction] 39.1 % 34.0-46.4 [facility] Laboratory - CoagulationOrde red By: Salma Cortes on 11-10-2021 PT Coag (PPP) [Time] 12.6 s 9.0-12.9 [facility] Laboratory - Hematology and Cell countsOrdered By: Salma Cortes on 11-10-2021 Nucleated RBC/100 WBC (Bld) [Ratio] 0.1 % 0-0.5 [facility] Lymphocytes Auto (Bld) [#/Vo l]Ordered By: Salma Cortes on 11-10-2021 Lymphocytes (Bld) [#/Vol] 1.3 10*3/uL 1.00-4.8 [facility] Lymphocytes/100 WBC Auto (Bl d)Ordered By: Salma Cortes on 11-10-2021 Lymphocytes/100 WBC (Bld) 12.0 % [facility] MCH Auto (RBC) [Entitic mass ]Ordered By: Salma Cortes on 11-10-2021 MCH (RBC) [Entitic mass] 30.4 pg 24.7-34.3 [facility] MCHC Auto (RBC) [Mass/Vol]Or dered By: Salma Cortes on 11-10-2021 MCHC (RBC) [Mass/Vol] 33.8 g/dL 32.0-35.0 [facility] MCV Auto (RBC) [Entitic vol] Ordered By: Salma Cortes on 11-10-2021 MCV (RBC) [Entitic vol] 90.0 fL 80-100 [facility] Monocytes Auto (Bld) [#/Vol] Ordered By: Salma Cortes on 11-10-2021 Monocytes (Bld) [#/Vol] 1.2 10*3/uL 0.0-0.8 [facility] Monocytes/100 WBC Auto (Bld) Ordered By: Salma Cortes on 11-10-2021 Monocytes/100 WBC (Bld) 10.8 % [facility] Neutrophils Auto (Bld) [#/Vo l]Ordered By: Salma Cortes on 11-10-2021 Neutrophils (Bld) [#/Vol] 8.2 10*3/uL 1.8-7.7 [facility] Neutrophils/100 WBC Auto (Bl d)Ordered By: Salma Cortes on 11-10-2021 Neutrophils/100 WBC (Bld) 76.9 % [facility] Platelet mean volume Auto (B ld) [Entitic vol]Ordered By: Salma Cortes on 11-10-2021 Platelet mean volume (Bld) [Entitic vol] 9.2 fL 6.3-10.7 [facility] Platelet poor plasma interna tional normalized ratio (INR) by coagulation assay (relatOrdered By: Salma Cortes on 11-10-2021 INR Coag (PPP) [Relative time] 1.1 {INR} [facility] Comment on above: INR Therapeutic [...] 11-10-2021 Platelets (Bld) [#/Vol] 261 10*3/uL 150-450 [facility] Prothrombin Time INRon 11-10 INR Coag (PPP) [Relative time] 1.1 {INR} Normal [facility] Comment on above: Result Comment: [...] heart valves: 3 - 4.5 PERFORMED BY: [place] [address] PATHOLOGIST MACHINE QUILT STUFFER ADRIAN ROBERTSON M.D. Performed By: #### B MP, PT, CBC #### [facility] [address] [place] [id number] [facility] PT Coag (PPP) [Time] 12.6 s Normal 9.0-12.9 [facility] Comment on above: Performed By: #### B MP, PT, CBC #### [facility] [address] [place] [address] INR Coag (PPP) [Relative time] 1.2 {INR} Normal [facility] Comment on above: Order Comment: [...] heart valves: 3 - 4.5 PERFORMED BY: [place] [address] PATHOLOGIST MACHINE QUILT STUFFER ADRIAN ROBERTSON M.D. Performed By: #### P T #### [facility] [address] [place] [address] PT Coag (PPP) [Time] 12.9 s Normal 9.0-12.9 [facility] Comment on above: Order Comment: that no one else will be tiring until 3rd comes in. psw 2013 Performed By: #### P T #### [facility] [address] [place] [address] RBC Auto (Bld) [#/Vol]Ordere d By: Salma Cortes on 11-10-2021 RBC (Bld) [#/Vol] 4.35 10*6/uL 3.60-5.00 [facility] BNPon 11-09-2021 Natriuretic peptide B (Bld) [Mass/Vol] 914.0 pg/mL Normal <=1,800.0 [facility] Comment on above: Performed By: #### C MADM, CMP, BNP ####[facility] [address] [place] [id number]. Swathi Reis CARDIAC TRINA ADMITon 022 CK [Catalytic activity/Vol] 50 U/L Normal 30-135 [facility] Comment on above: Performed By: #### C MADM, CMP, BNP ####[facility] [address] [place] [id number]. Swathi Reis CK.MB [Mass/Vol] 1.14 ng/mL Normal <=2.37 [facility] Comment on above: Performed By: #### C MADM, CMP, BNP ####[facility] [address] [place] [address]Dr. Swathi Reis HSTROP 12.8 pg/mL Normal 4.0-35.5 [facility] Comment on above: Result Comment: CUT- OFF POINTS HAVE BEEN ESTABLISHED BASED ON THE FOURTH UNIVERSAL DEFINITIONS OF MYOCARDIALINFARCTION. THE UPPER REFERENCE LIMIT (URL) OF TROPONIN, DEFINED THE 99TH PERCENTILE OFcTnI DISTRIBUTION IN A REFERENCE POPULATION, HAS BEEN CONFIRMED THE DECISION THRESHOLDFOR CO DIAGNOSIS. Performed By: #### C MADM, CMP, BNP ####[facility] [address] [place] [id number]. Swathi Reis GUANACO 53.0 ng/mL Normal <=61.5 [facility] Comment on above: Performed By: #### C MADM, CMP, BNP ####[facility] [address] [place] [id number]. Swathi Reis CBC AUTO DIFFon 11-09-2021 BASO # 0.0 103/ul Normal 0.0-0.1 [facility] Comment on above: Performed By: #### C BC ####[facility] [address] [place] [id number]. Swathi Reis Basophils/100 WBC (Bld) 0.3 % Normal 0.2-2.0 [facility] Comment on above: Performed By: #### C BC ####[facility] [address] [place] [address]Dr. Swathi Reis EO # 0.0 103/ul Normal 0.0-0.7 [facility] Comment on above: Performed By: #### C BC ####[facility] [address] [place], [place] [address]Dr. Swathi Reis Eosinophils/100 WBC (Bld) 0.2 % Critically low 0.9-7.0 [facility] Comment on above: Performed By: #### C BC ####[facility] [address] [place], [place] [address]Dr. Swathi Reis Erythrocyte distribution width (RBC) [Ratio] 13.1 % Normal 11.0-15.0 [facility] Comment on above: Performed By: #### C BC ####[facility] [address] [place], [place] [address]Dr. Swathi Reis Hematocrit (Bld) [Volume fraction] 40.8 % Normal 36.0-48.0 [facility] Comment on above: Performed By: #### C BC ####[facility] [address] [place], [place] [address]Dr. Inessatracy Reis Hemoglobin (Bld) [Mass/Vol] 13.3 g/dL Normal 12.0-16.0 [facility] Comment on above: Performed By: #### C BC ####[facility] [address] [place], [place] [address]Dr. Swathi Reis IG # 0.05 10e3/ul Critically high 0.00-0.03 [facility] Comment on above: Performed By: #### C BC ####[facility] [address] [place], [place] [address]Dr. Swathi Reis IG % 0.4 % Normal 0.0-0.5 [facility] Comment on above: Performed By: #### C BC ####[facility] [address] [place], [place] [address]Dr. Swathi Reis LYMPH # 1.0 103/ul Critically low 1.2-3.8 [facility] Comment on above: Performed By: #### C BC ####[facility] [address] [place] [address]DrOtto Reis Lymphocytes/100 WBC (Bld) 8.3 % Critically low 20.5-60.0 [facility] Comment on above: Performed By: #### C BC ####[facility] [address] [place] [address]DrOtto Reis MANUAL DIFF REQ NO Normal [facility] Comment on above: Performed By: #### C BC ####[facility] [address] [place] [address]DrOtto Reis MCH (RBC) [Entitic mass] 29.8 pg Normal 26.7-34.0 [facility] Comment on above: Performed By: #### C BC ####[facility] [address] [place], [place] [address]Dr. Swathi Reis MCHC (RBC) [Mass/Vol] 32.6 g/dL Normal 29.9-35.2 [facility] Comment on above: Performed By: #### C BC ####[facility] [facility] [address] [place], [place] [address]DrOtto Reis MCV (RBC) [Entitic vol] 91.5 fL Normal 81.0-99.0 [facility] Comment on above: Performed By: #### C BC ####[facility] [address] [place], [place] [address]DrOtto Reis MONO # 0.6 103/ul Normal 0.3-0.8 [facility] Comment on above: Performed By: #### C BC ####[facility] Dqefkgnwor[address] [place], [place] [address]DrOtto Reis Monocytes/100 WBC (Bld) 4.9 % Normal 1.7-12.0 [facility] Comment on above: Performed By: #### C BC ####[facility] Txch[address] [place], [place] [address]DrOtto Reis NEUT # 10.5 103/ul Critically high 1.4-6.5 [facility] Comment on above: Performed By: #### C BC ####[facility] [address] [place] [id number]. Swathi Reis Neutrophils/100 WBC (Bld) 85.9 % Critically high 43.0-75.0 [facility] Comment on above: Performed By: #### C BC ####[facility] [address]jwhxdfnj5[address] [place] [id number]. Swathi Reis Platelet mean volume (Bld) [Entitic vol] 10.9 fL Normal 9.5-13.5 [facility] Comment on above: Performed By: #### C BC ####[facility] Rbgarwksys[address] [place] [id number]. Swathi Reis PLT 290 103/ul Normal 150-450 [facility] Comment on above: Performed By: #### C BC ####[facility] Fgavdqktps2[address] [place] [id number]. Swathi Reis RBC 4.46 106/ul Normal 4.20-5.40 [facility] Comment on above: Performed By: #### C BC ####[facility] Kabkieefov4[address] [place] [id number]. Swathi Reis WBC 12.3 103/ul Critically high 4.0-11.0 [facility] Comment on above: Performed By: #### C BC ####[facility] Uuwmculuhi[address] [place] [id number]. Swathi Reis CT HEAD WO CONon 11-09-2021 CT HEAD WO CON Normal [facility]-24 SARS-CoV-2 (COVID-19) RNA ÓSCAR+probe Ql (Unsp spec) Not detected Normal NOT DETECTED [facility] Comment on above: Result Comment: When diagnostic [...] for this test is supported by the [place] of Health and Human Service's declaration that [...] longer be used). Performed By: #### C VDTB ####[facility] K[address]ce[address] [place], [place] [address]Dr. Swathi Reis ER URINE PROFILEon 2 Bilirubin Ql (U) Negative Normal NEGATIVE [facility] Comment on above: Performed By: #### Amaury WATERS UMHANANERO ####[facility] Ifkwsyidei[address] [place], [place] [address]Dr. Swathi Reis Clarity (U) CLEAR Normal CLEAR [facility] Comment on above: Performed By: #### Amaury WATERS UMICRO ####[facility] [address] [place], [place] [address]Dr. Swathi Reis Color (U) LT. YELLOW Normal YELLOW [facility] Comment on above: Performed By: #### ROMEO SOSARO ####[facility] [address]ux[address] [place], [place] [address]Dr. Swathi Reis ERUAHD A micrscopic examina tion will be performed if indicated. Normal [facility] Comment on above: Performed By: #### Amaury WATERS UMICRO ####[facility] [address] [place], [place] [address]Dr. Swathi Reis Glucose Ql (U) Negative Normal NEGATIVE [facility] Comment on above: Performed By: #### Amaury WATERS UMICRO ####[facility] Ewkauuddqf[address] [place], [place] [address]Dr. Swathi Reis Hemoglobin Ql (U) TRACE-INTACT Abnormal NEGATIVE [facility] Comment on above: Performed By: #### REYNOLD SOSA ####[facility] [address] [place] [address]Dr. Swathi Reis Ketones Ql (U) Negative Normal NEGATIVE [facility] Comment on above: Performed By: #### REYNOLD SOSA ####[facility] [address]sh[address] [place] [address]Dr. Inessatracy Reis LEUKOCYTES Negative Normal NEGATIVE [facility] Comment on above: Performed By: #### REYNOLD SOSA ####[facility] I[address] [place], [place] [address]Dr. Swathi Chato Nitrite Ql (U) Negative Normal NEGATIVE [facility] Comment on above: Performed By: #### REYNOLD SOSA ####[facility] Hstfneawfu[address] [place], [place] [address]Dr. Swathi Reis pH (U) 6.0 [pH] Normal 5-9 [facility] Comment on above: Performed By: #### REYNOLD SOSA ####[facility] D[address]ie[address]kt[address] [place], [place] [address]Dr. Swathi Reis SPEC GRAVITY 1.010 Normal 1.005-<=1.0 25 [facility] Comment on above: Performed By: #### REYNOLD SOSA ####[facility] V[address] [place], [place] [address]Dr. Swathi Reis UA PROTEIN TRACE Normal NEGATIVE/ TRACE [facility] Comment on above: Performed By: #### REYNOLD SOSA ####[facility] [address]zbu[address]sv[address] [place], [place] [address]Dr. Swathi Reis UR MICRO IND INDICATED Normal [facility] Comment on above: Performed By: #### REYNOLD SOSA ####[facility] Qzbsxivvrf[address] [place], [place] [address]Dr. Swathi Reis Urobilinogen Qn (U) 0.2 {Sánchez'U}/dL Normal 0.2 - 1. 0 [facility] Comment on above: Performed By: #### REYNOLD SOSA ####[facility] Qmjnlbgcfv1374 [place] [id number]. Swathi Reis Glucose Poct Glucometerson 0 11-09-2021 Glucose [Mass/Vol] 178 mg/dL Normal [facility] Comment on above: Result Comment: [facility] Glucose Reference Range is dependent on time and content of last meal. Glucose of more than 200 mg/dL in a nonstressed, ambulatory subject supports the diagnosis of Diabetes Mellitus. PERFORMED BY: [facility] Maranda [place] [address] PATHOLOGIST MACHINE QUILT STUFFER ADRIAN ROBERTSON M.D. Performed By: #### G LULS #### Point of Care testing , PROF 14(COMP METB)on 022 Albumin [Mass/Vol] 3.5 g/dL Normal 3.5-5.0 [facility] Comment on above: Performed By: #### C MADM, CMP, BNP ####[facility] [address] [place] [id number]. Swathi Reis Albumin/Globulin [Mass ratio] 1.0 {ratio} Normal [facility] Comment on above: Performed By: #### C MADM, CMP, BNP ####[facility] Gnlaolpcye24[address] [place] [phone]. Swathi Reis ALP [Catalytic activity/Vol] 93 U/L Normal 38-126 [facility] Comment on above: Performed By: #### C MADM, CMP, BNP ####[facility] Lvubxrhqdb1705 [place] [phone]. Swathi Reis ALT [Catalytic activity/Vol] 22 U/L Normal 9-52 [facility] Comment on above: Performed By: #### C MADM, CMP, BNP ####[facility] Pcfinlqgrm34[address] [place] [phone]. Swathi Reis Anion gap [Moles/Vol] 15.4 mmol/L Normal [facility] Comment on above: Performed By: #### C MADM, CMP, BNP ####[facility] Ztucjwqjyk95[address] [place] [phone]. Swathi Reis AST [Catalytic activity/Vol] 21 U/L Normal 14-36 [facility] Comment on above: Performed By: #### C MADM, CMP, BNP ####[facility] [address]edklh[address] [place] [address]Dr. Swathi Reis Bilirubin [Mass/Vol] 0.7 mg/dL Normal 0.2-1.3 [facility] Comment on above: Performed By: #### C MADM, CMP, BNP ####[facility] Ohtoomxlki[address] [place] [address]Dr. Swathi Reis Calcium [Mass/Vol] 9.5 mg/dL Normal 8.4-10.2 [facility] Comment on above: Performed By: #### C MADM, CMP, BNP ####[facility] Iv[address] [place], [place] [address]Dr. Swathi Reis Chloride [Moles/Vol] 99 mmol/L Normal 98-107 [facility] Comment on above: Performed By: #### C MADM, CMP, BNP ####[facility] A[address]pcwfp[address] [place], [place] [address]Dr. Swathi Reis CO2 [Moles/Vol] 31.0 mmol/L Critically high 22.0-30.0 [facility] Comment on above: Performed By: #### C MADBoston, CMP, BNP ####[facility] [address]frudweayj[address] [place] [address]Dr. Swathi Reis Creatinine [Mass/Vol] 1.10 mg/dL Critically high 0.52-1.04 [facility] Comment on above: Performed By: #### C MADM, CMP, BNP ####[facility] Wfqymioqds22[address] [place] [address]Dr. Swathi Reis EGFR-AF FIJIAN 58 mL/min/1.73m2 Critically low >=60 [facility] Comment on above: Performed By: #### C MADM, CMP, BNP ####[facility] [address]qjdk[address]zd[address] [place] [address]Dr. Swathi Reis EGFR-NON AF FIJIAN 48 mL/min/1.73m2 Critically low >=60 [facility] Comment on above: Performed By: #### C MADM, CMP, BNP ####[facility] [address]wvroaq[address] [place] [address]Dr. Swathi Reis Globulin (S) [Mass/Vol] 3.5 g/dL Normal [facility] Comment on above: Performed By: #### C MADM, CMP, BNP ####[facility] Nyvbcntnwz90[address] [place] [address]Dr. Swathi Reis Glucose [Mass/Vol] 203 mg/dL Critically high 74-106 [facility] Comment on above: Performed By: #### C MADM, CMP, BNP ####[facility] Zraojhbygr58[address] [place] [address]Dr. Swathi Reis Potassium [Moles/Vol] 4.4 mmol/L Normal 3.4-5.0 [facility] Comment on above: Performed By: #### C MADM, CMP, BNP ####[facility] [address] [place], [place] [address]Dr. Swathi Reis Protein [Mass/Vol] 7.0 g/dL Normal 6.1-8.2 [facility] Comment on above: Performed By: #### C MADM, CMP, BNP ####[facility] Ondikpxoqv[address] [place], [place] [address]Dr. Swathi Reis Sodium [Moles/Vol] 141 mmol/L Normal 137-145 [facility] Comment on above: Performed By: #### C MADM, CMP, BNP ####[facility] Xxprfmextf19[address] [place] [address]Dr. Swathi Reis Urea nitrogen [Mass/Vol] 21.0 mg/dL Critically high 7.0-17.0 [facility] Comment on above: Performed By: #### C MADM, CMP, BNP ####[facility] Nnuvywdhed[address] [place], [place] [address]Dr. Swathi Reis Urea nitrogen/Creatinine [Mass ratio] 19.1 mg/mg Normal [facility] Comment on above: Performed By: #### C MADM, CMP, BNP ####[facility] Ldcbzkzigv97[address] [place] [address]Dr. Swathi Reis PROTIMEon 11-09-2021 INR Coag (PPP) [Relative time] 1.09 {INR} Normal [facility] Comment on above: Performed By: #### P T, PTT ####[facility] D[address]ntzimz[address] [place], [place] [address]Dr. Swathi Reis INR GUIDELINES SEE BELOW Normal [facility] Comment on above: Result Comment: HARRIETT RED INR: 2.0 - 3.0 CONDITIONS NOT LISTED BELOW 2.5 - 3.5 FOR PROSTHETIC HEART VALVE REPLACEMENT 2.5 - 3.5 RECURRENT THROMBOSIS Performed By: #### P T, PTT ####[facility] [address]qlw[address] [place], [place] [address]Dr. Swathi Reis PT Coag (PPP) [Time] 11.7 s Critically high 9.0-11.6 [facility] Comment on above: Performed By: #### P T, PTT ####[facility] C[address]cs[address] [place], [place] [address]Dr. Swathi Reis INR Coag (PPP) [Relative time] 3.45 {INR} Normal [facility] Comment on above: Performed By: #### P TT, PT ####[facility] Dlyw[address]whhfu[address] [place], [place] [address]Dr. Swathi Reis INR GUIDELINES SEE BELOW Normal [facility] Comment on above: Result Comment: HARRIETT RED INR: 2.0 - 3.0 CONDITIONS NOT LISTED BELOW 2.5 - 3.5 FOR PROSTHETIC HEART VALVE REPLACEMENT 2.5 - 3.5 RECURRENT THROMBOSIS Performed By: #### P TT, PT ####[facility] Dyax[address] [place], [place] [address]Dr. Swathi Reis PT Coag (PPP) [Time] 34.4 s Critically high 9.0-11.6 [facility] Comment on above: Performed By: #### P TT, PT ####[facility] [address]ber[address]dt[address] [place], [place] [address]Dr. Swathi Reis PTTon 11-09-2021 aPTT Coag (Bld) [Time] 25.9 s Normal 22.3-36.2 [facility] Comment on above: Performed By: #### P T, PTT ####[facility] Dhltxhrpyb9158 [place] [address]Dr. Swathi Reis aPTT Coag (Bld) [Time] 39.1 s Critically high 22.3-36.2 [facility] Comment on above: Performed By: #### P TT, PT ####[facility] [address]tw[address] [place], [place] [address]Dr. Inessatracy Chato TYPE AND SCREENon 11-09-2021 TYPE AND SCREEN Negative Normal [facility] Comment on above: Performed By: #### T NS ####[facility] [address]qiz[address]jv[address] [place], [place] [address]Dr. Inessatracy Chato URINE MICROSCOPIC ONLYon BACTERIA NONE SEEN Normal NONE SEEN [facility] Comment on above: Performed By: #### Amaury WATERS UMICRO ####[facility] Tdftyasjq[address] [place], [place] [address]Dr. Swathi Reis Bacteria identified Cx Nom (U) NOT INDICATED Normal [facility] Comment on above: Performed By: #### Amaury WATERS UMICRO ####[facility] [address] [place], [place] [address]Dr. Swathi Reis CAST NONE SEEN Normal NONE SEEN [facility] Comment on above: Performed By: #### Amaury WATERS UMICRO ####[facility] [address] [place], [place] [address]Dr. Swathi Reis Crystals LM Nom (Urine sed) NONE SEEN Normal NONE SEEN [facility] Comment on above: Performed By: #### Amaury RUMahesh, UMICRO ####[facility] [address] [place], [place] [address]Dr. Swathi Reis Epithelial cells LM Ql (Urine sed) FEW Abnormal NONE SEEN /RARE [facility] Comment on above: Performed By: #### E RUMahesh, UMICRO ####[facility] [address] [place], [place] [address]Dr. Swathi Reis MUCOUS NONE SEEN Normal NONE SEEN [facility] Comment on above: Performed By: #### Amaury WATERS UMICRO ####[facility] [address]tr[address] [place], [place] [address]Uh. Swathi Reis RBC 2-5 Abnormal 0-2 [facility] Comment on above: Performed By: #### REYNOLD SOSA ####[facility] [address]kv[address] [place], [place] [address]Uf. Swathi Reis WBC NONE SEEN Normal NONE SEEN [facility] Comment on above: Performed By: #### REYNOLD SOSA ####[facility] [address]fnt[address] [place], [place] [address]Vs. Swathi Reis XR CHEST 1 Von 11-09-2021 XR CHEST 1 V Normal [facility] Coding Summary.on 09-14-2020 Coding Summary. CODING DATE: 020 FINAL [facility] STATUS: Short-Term Hosp as IP PAYOR: [...] Saved: 09/14/2020 08:26 am Normal [facility] EMS Documentationon 09-12-20 20 EMS Documentation [id number] [facility] ED Clinical Summaryon 2019 ED Clinical Summary (Inserted Image. Ave ble to display) [place] [id number] ED Clinical Summary Person Information Name: ANDREW BARROS[place] Age: 74 Years : 1945 Sex: Female Language: South African PCP: Eduardo Sharpe MD Marital Status: Phone: [phone] Visit Id: Visit Reason: Shortness of breath; [...] 23:10:35 09/09/2020 23:10:35 09/09/2020 23:10:35 ADDRESS: [address] [place] [address] PHYS DOC NOTES: Addendum by Koko Pettit [...] DIAGNOSIS: COVID-19; Hypoxemia; Pneumonia Normal [facility] ED Patient Education Noteon 09-10-2020 ED Patient Education Note Normal [facility] ED Patient Summaryon 020 ED Patient Summary (Inserted Image. Ave ble to display) [place] [id number] Patient Discharge Instructions Person Information Name: ANDREW BARROS Age: 74 Years Arrival Date: 09/09/2020 12:32:39 Discharge Diagnosis: COVID-19; Hypoxemia; Pneumonia Primary Care Physician: Eduardo Sharpe MD Provider Information Primary Provider: Koko Pettit DO Advanced Turkey Egg Gatherer:None The exam and treatment you received in the Emergency Department were for an urgent problem and are not intended as complete care. It is important that you follow up with a doctor, nurse practitioner, or physician?s communications assistant for ongoing care. If your symptoms become worse or you do not improve as expected and you are unable to reach your usual health care provider, you should return to the Emergency Department. We are available 24 hours a day. BARROS ANDREW has been given the following list of [...] opioids can be used to help relieve qzmjfdzg-cz-kujmsx pain and are often prescribed following a [...] be struggling with addiction, tell your health critical care cns and ask for guidance or call [facility]?S National Helpline at 3-992-029-DBTY. Source: [place] Department of Health and Human Services/Center for Disease Control & Prevention [facility] Medications Given: Medication Dose Route levo (more content not included)... Normal [facility] Progress Note-Nurseinna 2019 Progress Note-Nurse [facility] ems at bedside receiving report and preparing patient for transport to [facility]. pt taken off high flow NC and placed on non rebreather at 15L/min o2 for traansport. Normal [facility] Troponin 9 Hr.on 09-10-2020 Troponin I.cardiac [Mass/Vol] 57.60 pg/mL Abnormal 10.10-27.[address] [facility] Comment on above: Result Comment: Crit [...] Umair, April 2018) Performed By: #### 1 [id number] ####[facility] [address] [place] [address] .Manual Abson 09-09-2020 Basophils/Leukocytes Manual cnt (Bld) [Pure # fraction] 0.0 E9/L Normal 0.0-0.[address] [facility] Comment on above: Performed By: #### 1 [id number], 4928193, 1418502, 2023778, 35630378, 54015802, 5502398, 71898750, 11039027 #### [facility] Laboratory [address] [place] [address] Eosinophils/Leukocyt es Manual cnt (Bld) [Pure # fraction] 0.0 E9/L Normal 0.0-0.[address] [facility] Comment on above: Performed By: #### 1 6583738, 4928025, 7345262, 2763423, 00092484, 25269589, 9547119, 20666459, 31001642 #### [facility] [address] [place] [address] Lymphocytes/Leukocyt es Manual cnt (Bld) [Pure # fraction] 0.4 E9/L Low 1.0-4.[address] [facility] Comment on above: Performed By: #### 1 4743589, 0558347, 2071969, 1110952, 35909976, 08963994, 9993697, 61840247, 56055915 #### [facility] [address] [place] [address] Monocytes/Leukocytes Manual cnt (Bld) [Pure # fraction] 1.5 E9/L High 0.2-1.[address] [facility] Comment on above: Performed By: #### 1 2494707, 2941027, 1968369, 9830908, 49054317, 70315489, 2341435, 23157593, 96668364 #### [facility] [address] [place] [address] Neutrophils/Leukocyt es Auto (Bld) [Pure # fraction] 18.9 E9/L High 2.0-7.[address] [facility] Comment on above: Performed By: #### 1 9439553, 0062035, 8677480, 7227280, 76257511, 54434953, 9188872, 71082180, 86683411 #### [facility] [address] [place] [address] BMP 09-09-2020 Creatinine [Mass/Vol] 1.1 mg/dL Normal 0.5-1.[address] [facility] Comment on above: Performed By: #### 1 0236435, 6926370, 5585710, 1176798, 26016772, 56666984, 3451690, 30989510, 77151135 #### [facility] [address] [place] [address] Urea nitrogen [Mass/Vol] 26 mg/dL High 5-[address] [facility] Comment on above: Performed By: #### 1 0142989, 7457503, 8283528, 1958619, 51087471, 46191410, 0766393, 55492276, 40836294 #### [facility] [address] [place] [address] Urea nitrogen/Creatinine [Mass ratio] 24 No Units High 10-[address] [facility] Comment on above: Performed By: #### 1 5727067, 4215110, 5931884, 2844873, 98246492, 79354053, 8626212, 08938864, 49767976 #### [facility] [address] [place] [address] Anion gap [Moles/Vol] 14 mmol/L Normal 6-[address] [facility] Comment on above: Performed By: #### 1 3356463, 0590083, 5905472, 7996991, 62972925, 71134292, 9329368, 16834917, 35833455 #### [facility] [address] [place] [address] Calcium [Mass/Vol] 8.7 mg/dL Low 8.9-11.[address] [facility] Comment on above: Performed By: #### 1 4090940, 4316731, 6176142, 2546051, 06086512, 74246949, 1258575, 19632073, 16935962 #### [facility] [address] [place] [address] Chloride [Moles/Vol] 104 mmol/L Normal 101-111 [facility] Comment on above: Performed By: #### 1 3707109, 3545868, 5912072, 6354334, 01850312, 79779327, 5244272, 25169423, 38500317 #### [facility] [address] [place] [address] CO2 [Moles/Vol] 23 mmol/L Normal 21-31 [facility] Comment on above: Performed By: #### 1 6771206, 1526970, 8286550, 2895472, 63073407, 59494906, 2931283, 21829599, 38054440 #### [facility] [address] [place] [address] Glucose [Mass/Vol] 256 mg/dL High 55-[address] [facility] Comment on above: Result Comment: If t his glucose result represents a fasting glucose, interpretation should refer to the following reference range: 55-99 mg/dL Performed By: #### 1 4712684, 0960538, 7864773, 6228541, 36198791, 70963467, 9571764, 44515673, 68719649 #### [facility] [address] [place] [address] Potassium [Moles/Vol] 4.9 mmol/L Normal 3.5-5.[address] [facility] Comment on above: Performed By: #### 1 1465786, 7447727, 5674841, 1780392, 77954184, 32396050, 8787016, 36152604, 26756509 #### [facility] [address] [place] [address] Sodium [Moles/Vol] 136 mmol/L Normal 135-[address] [facility] Comment on above: Performed By: #### 1 9512934, 4502717, 9118739, 4636442, 80881128, 00501405, 9725943, 87217394, 62157335 #### [facility] [address] [place] [address] BNPon 09-09-2020 Int Ctr BNP Pass Normal [facility] Comment on above: Performed By: #### 1 6799637, 7752550, 7464404, 1855839, 42286173, 60479706, 8828748, 84371452, 52658223 ####[facility] [address] [place] [address] Natriuretic peptide B (Bld) [Mass/Vol] 477 pg/mL High 5-[address] [facility] Comment on above: Performed By: #### 1 2720764, 0659159, 5516501, 4117760, 15510175, 90880383, 7110210, 53221722, 52296092 ####[facility] [address] [place] [address] Bld Gas Arton 09-09-2020 a/A Ratio Art 37.50 Normal >=0.80 [facility] Comment on above: Performed By: #### 1 0263596 ####[facility] [address] [place] [address] AaDO2 Art 144.6 High 5.0-15.[address] [facility] Comment on above: Performed By: #### 1 4055953 ####[facility] [address] [place] [address] Allens Test Positive Invalid Interpretation Code [facility] Comment on above: Result Comment: [facility] Department of Pulmonary Medicine [address] [place] [address] Performed By: #### 1 1510041 ####[facility] [address] [place] [address] Base excess Calc (Bld) [Moles/Vol] -1.8000 mmol/L Low >=2.8 [facility] [facility] Comment on above: Performed By: #### 1 [id number] ####[facility] [address] [place] [address] Called By: MISHA Invalid Interpretation Code [facility] Comment on above: Performed By: #### 1 [id number] ####[facility] [address] [place] [address] Called To: COLTON Invalid Interpretation Code [facility] Comment on above: Performed By: #### 1 [id number] ####[facility] [address] [place] [address] cCa2+ Art 4.93 mg/dL Normal 4.40-5.[address] [facility] Comment on above: Performed By: #### 1 [id number] ####[place] [address] cCl- Art 106.0 mmol/L Normal 101.0-111.0 [facility] Comment on above: Performed By: #### 1 [id number] ####[place] [address]57 cGlu Art 262.0 mg/dL High 55.0-199.[address] [facility] Comment on above: Result Comment: 83 Performed By: #### 1 [id number] ####[facility] [address] [place], [place] [address] cK+ Art 4.9 mmol/L Normal 3.5-5.[address] [facility] Comment on above: Performed By: #### 1 [id number] ####[facility] [address] [place] [address] cLac Art 1 mmol/L Low 5-[address] [facility] Comment on above: Performed By: #### 1 [id number] ####[facility] [address] [place] [address] city detective+ Art 140.0 mmol/L Normal 135.0-145.0 [facility] Comment on above: Performed By: #### 1 [id number] ####[facility] [address] [place] [address] CO2 (Bld) [Partial pressure] 45.5 mm[Hg] High 35.0-45.[address] [facility] Comment on above: Result Comment: 83 Performed By: #### 1 [id number] ####[facility] [address] [place] [address] Device NASAL Invalid Interpretation Code [facility] Comment on above: Performed By: #### 1 [id number] ####[facility] [address] [place] [address] Drawn by [employer] Invalid Interpretation Code [facility] Comment on above: Performed By: #### 1 [id number] ####[place] [address] [place] [address] Dt/Tm Notified 12:54:00 Invalid Interpretation Code [facility] Comment on above: Performed By: #### 1 [id number] ####[place] [address] [place] [address] FCOHb Art 1.1 % Low 1.5-4.[address] [facility] Comment on above: Result Comment: 84 Reference range Nonsmoker <1.5% Smoker <5.0% Heavy Smoker <9.0% Performed By: #### 1 [id number] ####[facility] [address] [place] [address] FIO2 BG 40.0 Invalid Interpretation Code [facility] Comment on above: Performed By: #### 1 [id number] ####[facility] [address] [place] [address] Flow 5.00 Invalid Interpretation Code [facility] Comment on above: Performed By: #### 1 [id number] ####[facility] [address] [place] [address] FMetHb Art 0.6 % Normal 0.0-1.[address] [facility] Comment on above: Performed By: #### 1 [id number] ####[address] [address] FO2Hb Art 94.9 % Normal 92.0-100.[address] [facility] Comment on above: Performed By: #### 1 2791851 ####[address] [address] HCO3 (Bld) [Moles/Vol] 22.9 mmol/L Normal 22.0-26.[address] [facility] Comment on above: Performed By: #### 1 [id number] ####[address] [address] Hemoglobin (Bld) [Mass/Vol] 9.9 g/dL Low 12.0-16.[address] [facility] Comment on above: Result Comment: 84 Performed By: #### 1 [id number] ####[address] [address] Oxygen saturation in Blood 96.6 % Normal 95.0-100.[address] [facility] Comment on above: Performed By: #### 1 [id number] ####[address] [address] P O2 Arterial 86.6 mmHg Normal 80.0-100.0 [facility] Comment on above: Performed By: #### 1 [id number] ####[address] [address] pH (Bld) 7.333 [pH] Low 7.350-7.[address] [facility] Comment on above: Result Comment: 84 Performed By: #### 1 [id number] ####[address] [address] Sample Site RR Invalid Interpretation Code [facility] Comment on above: Performed By: #### 1 [id number] ####[address] [address] Sample Type Arterial Invalid Interpretation Code [facility] Comment on above: Performed By: #### 1 [id number] ####[address] [address] CBC w/ Auto Diffon 0 Erythrocyte distribution width (RBC) [Ratio] 15.1 % High 10.9-14.[address] [facility] Comment on above: Performed By: #### 1 9087783, 5223014, 1267326, 7463998, 70420474, 05391823, 9854967, 93992926, 90539871 #### [facility] [address] [place] [address] Hematocrit (Bld) [Volume fraction] 30.7 % Low 34.0-46.[address] [facility] Comment on above: Performed By: #### 1 8909670, 4692174, 7126579, 6679988, 20936109, 43001634, 3184557, 77565099, 90343593 #### [facility] [address] [place] [address] Hemoglobin (Bld) [Mass/Vol] 9.9 g/dL Low 12.0-16.[address] [facility] Comment on above: Performed By: #### 1 2997169, 0068785, 8010456, 7288733, 36891661, 62451533, 7085533, 13896259, 16571978 #### [facility] [address] [place] [address] MCH (RBC) [Entitic mass] 29.7 pg Normal 27.0-34.[address] [facility] Comment on above: Performed By: #### 1 0566044, 0778398, 0743602, 7398522, 33561335, 79422254, 8568427, 64798458, 85649551 #### [facility] [address] [place] [address] MCHC (RBC) [Mass/Vol] 32.2 g/dL Normal 31.4-36.[address] [facility] Comment on above: Performed By: #### 1 6182697, 3084304, 2051114, 5735625, 59586092, 55955472, 3025780, 66130760, 91727767 #### [facility] [address] [place] 17[address]157 MCV (RBC) [Entitic vol] 92.3 fL Normal 80.0-100.[address] [facility] Comment on above: Performed By: #### 1 7404162, 2607943, 7832935, 7126578, 52625942, 24717057, 9585167, 85996444, 06651819 #### [facility] [address] [place] [address] Platelet mean volume (Bld) [Entitic vol] 8.4 fL Normal 6.4-10.[address] [facility] Comment on above: Performed By: #### 1 9574022, 4822501, 5917948, 8058170, 02735367, 43718406, 1059739, 97348347, 43875947 #### [facility] [address] [place] [address] Platelets (Bld) [#/Vol] 243.0 E9/L Normal 150.0-500.[address] [facility] Comment on above: Performed By: #### 1 7882682, 6674479, 8010139, 0161206, 92589007, 94035207, 6214608, 04424891, 02637366 #### [facility] [address] [place] [address] RBC (Bld) [#/Vol] 3.3 E12/L Low 4.3-5.[address] [facility] Comment on above: Performed By: #### 1 3639326, 1267620, 2609000, 3086296, 39170078, 34672789, 9080288, 14582987, 95384082 #### [facility] [address] [place] [address] WBC corrected for nucl RBC Auto (Bld) [#/Vol] 21.7 E9/L High 4.0-11.[address] [facility] Comment on above: Performed By: #### 1 4043575, 0366640, 1759720, 7856889, 50698961, 46238307, 4351127, 17585092, 86682066 #### [facility] [address] [place] [address] CTA Cheston 09-09-2020 CTA Chest Exam Date/Time: 09/09/2020 18:01 EST [...] amount in ml's: [address] [facility] Consent for Treatmenton 08-23 Consent for Treatment [id number] [facility] D-Dimeron 09-09-2020 Fibrin D-dimer FEU (PPP) [Mass/Vol] 1480 ng/mL Abnormal 215-[address] [facility] Comment on above: Result Comment: Resu [...] infections Liver cirrhosis Performed By: #### 1 6530430, 9035415, 0191304, 4715242, 31033694, 43075675, 2300966, 07435245, 36251290 ####[facility] [address] [place] [address] ED Note-Physicianon 09-09-20 20 ED Note-Physician Basic Information Time Seen: Colton GIBBS Koko 09/09/2020 12:35 Chief Complaint Sent from [facility] for increased SOB and low oxygen level. Covid positive about 2 weeks ago per EMS History of Present Illness 74 female presents to the emergency department with shortness of breath. Patient presents by EMS from the halfway with Covid positive testing about 2 weeks [...] does not normally wear oxygen at the halfway. No other aggravating or relieving factors no other associated symptoms no other prior treatments or complaints. Family: Reviewed and noncontributory Social: lives at halfway Review of systems negative unless otherwise specified [...] (more content not included)... Normal [facility] Comment on above: Result Comment: Elec tronically Signed By: Koko Pettit DO\.br\Date and Time Signed: 09/09/20 18:56 EST Lactic Acidon 09-09-2020 Lactate [Mass/Vol] 1.0 mmol/L Normal 0.5-2.[address] [facility] Comment on above: Performed By: #### 2 [id number] ####[facility] [address] [place] [address] Manual Diffon 09-09-2020 Band form neutrophils/100 WBC (Bld) 6 % Normal 0-[address] [facility] Comment on above: Order Comment: Order Added by Discern Expert. Performed By: #### 1 5141146, 4789177, 3176477, 6122946, 96219656, 67935666, 2251188, 46313051, 00334362 #### [facility] [address] [place] [address] Basophils/100 WBC (Bld) 0 % Normal 0-[address] [facility] Comment on above: Order Comment: Order Added by Discern Expert. Performed By: #### 1 5409965, 4512573, 9612475, 5630784, 99243098, 74585846, 9637126, 97493529, 63408241 #### [facility] [address] [place] [address] Eosinophils/100 WBC (Bld) 0 % Normal 0-[address] [facility] Comment on above: Order Comment: Order Added by Discern Expert. Performed By: #### 1 1970157, 3234253, 0997789, 4753593, 26801339, 00138813, 9117372, 21854074, 60852667 #### [facility] [address] [place] [address] Lymphocytes/100 WBC (Bld) 2 % Low 14-[address] [facility] Comment on above: Order Comment: Order Added by Discern Expert. Performed By: #### 1 0489934, 2333761, 4891170, 8368632, 63004949, 08898725, 2305015, 40507111, 58117812 #### [facility] [address] [place] [address] Metamyelocytes/Leuko cytes Manual cnt (Bld) [Pure # fraction] 2 % High <=[address] [facility] Comment on above: Order Comment: Order Added by Discern Expert. Performed By: #### 1 8945327, 5038356, 3110815, 2325091, 97964561, 17414204, 6046329, 76678166, 27941820 #### [facility] [address] [place] [address] Monocytes/100 WBC (Bld) 7 % Normal 4-[address] [facility] Comment on above: Order Comment: Order Added by Discern Expert. Performed By: #### 1 8878770, 7543235, 6328421, 1952055, 40294639, 35201689, 8662847, 23760499, 97803555 #### [facility] [address] [place] [address] Morphology Elie (Bld) [Interp] Normal Normal [facility] Comment on above: Order Comment: Order Added by Discern Expert. Performed By: #### 1 3638069, 6463888, 0205001, 7067582, 16484475, 27993851, 5837583, 29146588, 03683113 #### [facility] [address] [place] [address] Myelocytes/100 WBC (Bld) 2 % High <=[address] [facility] Comment on above: Order Comment: Order Added by Discern Expert. Performed By: #### 1 4256378, 2620479, 9835043, 6808039, 68441917, 96532447, 2396521, 24083224, 93762900 #### [facility] [address] [place] [address] Nucleated cells (Bld) [#/Vol] 1 High <=[address] [facility] Comment on above: Order Comment: Order Added by Discern Expert. Performed By: #### 1 7812228, 3534454, 8231577, 9500152, 16988701, 83527091, 9720693, 78299065, 59975711 #### [facility] [address] [place] [address] Segmented neutrophils/100 WBC (Bld) 81 % High 36-[address] [facility] Comment on above: Order Comment: Order Added by Discern Expert. Performed By: #### 1 5416472, 8276877, 6441076, 8963978, 96845844, 02712643, 9779832, 11973663, 66270906 #### [facility] [address] [place] [address] Variant lymphocytes LM Ql (Bld) 0 % Invalid Interpretation Code [facility] Comment on above: Order Comment: Order Added by Discern Expert. Performed By: #### 1 8408140, 6734762, 0874099, 4004401, 63462032, 92182141, 0881597, 72610872, 43671988 #### [facility] [address] [place] [address] PTon 09-09-2020 INR Coag (PPP) [Relative time] 1.9 {INR} Invalid Interpretation Code [facility] Comment on above: Result Comment: INR results are specifically intended to assess patients stabilized on long-term Anticoagulation therapy suggested INR?s ?Less Intensive Anticoagulation? 2.0 ? 3.0 Conventional Range 3.0 ? 4.5 Performed By: #### 2 635828, 8767086 ####[facility] [address] [place] [address] PT Coag (PPP) [Time] 22.8 second(s) High 10.2-12.[address] [facility] Comment on above: Performed By: #### 2 040667, 6703431 ####[facility] [address] [place] [address] PT & PTTon 09-09-2020 aPTT Coag (PPP) [Time] 31.7 second(s) Normal 25.1-36.[address] [facility] Comment on above: Result Comment: Hepa rin therapeutic range (represented by Anti-Factor Xa activity of 0.2 - 0.4 U/mL) corresponds to PTT of 56.6 - 109.0 sec. Performed By: #### 1 9786025, 7093129, 1212091, 3031747, 10010702, 61687553, 7567478, 42804913, 71015105 ####[facility] [address] [place] [address] INR Coag (PPP) [Relative time] 2.0 {INR} Invalid Interpretation Code [facility] Comment on above: Result Comment: INR results are specifically intended to assess patients stabilized on long-term Anticoagulation therapy suggested INR?s ?Less Intensive Anticoagulation? 2.0 ? 3.0 Conventional Range 3.0 ? 4.5 Performed By: #### 1 7861655, 0957953, 8595939, 1164066, 15477546, 44143892, 0222018, 12965203, 27127130 ####[facility] [address] [place] [address] PT Coag (PPP) [Time] 23.6 second(s) High 10.2-12.[address] [facility] Comment on above: Performed By: #### 1 7705630, 3721602, 9841881, 8431536, 86364818, 61753474, 5238730, 75700514, 58691775 ####[facility] [address] [place] [address] PTTon 09-09-2020 aPTT Coag (PPP) [Time] 30.4 second(s) Normal 25.1-36.[address] [facility] Comment on above: Result Comment: Hepa rin therapeutic range (represented by Anti-Factor Xa activity of 0.2 - 0.4 U/mL) corresponds to PTT of 56.6 - 109.0 sec. Performed By: #### 2 578541, 1044190 ####[facility] [address] [place] [address] Progress Note-Nurseon 2019 Progress Note-Nurse Pt care report provi ded to JARRET Hirsch. Pts family member, Rosenda updated on pt status. Presently awaiting transport to [facility] via [facility], [place] [address]200hrs Normal [facility] Progress Note-Nurse Pt care report alan d to [facility] BOARDING KENNEL OR CATTERY OPERATOR Zach, advised of family contact information and will send SNF paperwork with patient. Normal [facility] Progress Note-Nurse Pts daughter, Rosenda updated on pt transfer and condition. Rosenda: [phone] Pts family sts pt is under extreme stress, pts spouse yesterday due to COVID infection. Normal [facility] Progress Note-Nurse Pts son updated on p t condition, presently awating updated order set. Pt returns from CT, RT at bedside for high flow o2 placement. Normal [facility] Progress Note-Nurse IV ABx completed at this time, pt to CT Normal [facility] Progress Note-Nurse Pt c/o increased dys pnea, spo2 reading 89% oxygen increased to 6lpm, nasal cannula. made aware, requests RT for high flow oxygen therapy Normal [facility] Progress Note-Nurse Advised per CT that IV no longer infuses/flushes, await IV access at this time via US. Normal [facility] Progress Note-Nurse Pt to imaging at thi s time. Normal [facility] Troponin 0 Hr.on 09-09-2020 Troponin I.cardiac [Mass/Vol] 10.10 pg/mL Normal 10.10-27.[address] [facility] Comment on above: Result Comment: The 95% CI (Confidence Interval) PPV (Positive Predictive Value) for myocardial infarction in females is 38 pg/mL, in males 51 pg/mL. The results should be used in conjunction with clinical conditions of myocardial infarction. (Access High Sensitivity Troponin I Instructions For Use, [employer], April 2018) Performed By: #### 1 1452988, 8579455, 9515022, 4525215, 99684776, 25180920, 5744432, 69277953, 63491409 ####[facility] [address] [place] [address] Troponin 3 Hr.on 09-09-2020 Troponin I.cardiac [Mass/Vol] 20.20 pg/mL Normal 10.10-27.[address] [facility] Comment on above: Result Comment: The 95% CI (Confidence Interval) PPV (Positive Predictive Value) for myocardial infarction in females is 38 pg/mL, in males 51 pg/mL. The results should be used in conjunction with clinical conditions of myocardial infarction. (Access High Sensitivity Troponin I Instructions For Use, [employer], April 2018) Performed By: #### 1 8987614 ####[facility] [address] [place] [address] Troponin 6 Hr.on 09-09-2020 Troponin I.cardiac [Mass/Vol] 37.60 pg/mL High 10.10-27.[address] [facility] Comment on above: Result Comment: The 95% CI (Confidence Interval) PPV (Positive Predictive Value) for myocardial infarction in females is 38 pg/mL, in males 51 pg/mL. The results should be used in conjunction with clinical conditions of myocardial infarction. (Access High Sensitivity Troponin I Instructions For Use, [employer], April 2018) Performed By: #### 1 [id number] #### [facility] [address] [place] [address] XR Chest Single Viewon 09-09 XR Chest [...] Mcclendon DO Transcribed by: MATTHEW Technologist: JAI Chase [facility] eGFRon 09-09-2020 GFR/1.73 sq M.predicted among blacks MDRD (S/P/Bld) [Vol rate/Area] 59 mL/min/1.73 m2 Normal >=[address] [facility] Comment on above: Order Comment: Order added by Discern Expert. Result Comment: eGFR is race adjusted. AA=. Performed By: #### 1 9789799, 6677806, 3191368, 2054542, 50927079, 70619024, 4332476, 80740191, 01188521 #### [facility] [address] [place] [address] GFR/1.73 sq M.predicted among non-blacks MDRD (S/P/Bld) [Vol rate/Area] 48 mL/min/1.73 m2 Low >=[address] [facility] Comment on above: Order Comment: Order added by Discern Expert. Result Comment: Fleshing Machine Operator les kidney disease could be indicated at eGFR's of less than 60 mL/min/1.73m2. Kidney failure is indicated at less than 15 mL/min/1.73m2. Performed By: #### 1 7328380, 7836558, 3240027, 5503845, 99915322, 68719439, 1757435, 18112127, 96531691 #### [facility] [address] [place] [address] Vital Signs Date Time Vital Sign Value Performing Clinician Facility 05-20-2023 15:10040 Body height 162.6 cm Sandeep Lenz MD Work Phone: [facility] 05-20-2023 15:10-0400 Body temperature 97.81 [degF] Sandeep Lenz MD Work Phone: [facility] 05-20-2023 15:10-040 Body weight 58.88 kg Sandeep Lenz MD Work Phone: [facility] 05-20-2023 15:10-0400 Diastolic blood pressure 72 mm[Hg] Sandeep Lenz MD Work Phone: [facility] 08-28-2023 15:10-0400 Heart rate 68 /min Sandeep Lenz MD Work Phone: [facility] 05-20-2023 15:10-0400 Respiratory rate 16 /min Sandeep Lenz MD Work Phone: [facility] 05-20-2023 15:10-0400 SaO2% (BldA) [Mass fraction] 99 % Sandeep Lenz MD Work Phone: [facility] 05-20-2023 15:10-0400 Systolic blood pressure 168 mm[Hg] Sandeep Lenz MD Work Phone: [facility] 04-30-2023 14:20-0400 Body temperature 97.59 [degF] Chair [place] Work Phone: [facility] 04-30-2023 14:20-0400 Diastolic blood pressure 72 mm[Hg] Chair [place] Work Phone: [facility] 04-30-2023 14:20-0400 Heart rate 64 /min Chair [place] Work Phone: [facility] 04-30-2023 14:20-0400 Respiratory rate 16 /min Chair Marcos Work Phone: [facility] 04-30-2023 14:20-0400 SaO2% (BldA) [Mass fraction] 98 % Chair [place] Work Phone: [facility] 04-30-2023 14:20-0400 Systolic blood pressure 147 mm[Hg] Chair [place] Work Phone: [facility] 04-29-2023 15:21-0400 Body height 162.6 cm Sandeep Lenz MD Work Phone: [facility] 04-29-2023 15:21-0400 Body temperature 97 [degF] Sandeep Lenz MD Work Phone: [facility] 04-29-2023 15:21-0400 Body weight 58.24 kg Sandeep Lenz MD Work Phone: [facility] 04-29-2023 15:21-0400 Diastolic blood pressure 66 mm[Hg] Sandeep Lenz MD Work Phone: [facility] 04-29-2023 15:21-0400 Heart rate 66 /min Sandeep Lenz MD Work Phone: [facility] 04-29-2023 15:21-0400 Respiratory rate 16 /min Sandeep Lenz MD Work Phone: [facility] 04-29-2023 15:21-0400 SaO2% (BldA) [Mass fraction] 96 % Sandeep Lenz MD Work Phone: [facility] 04-29-2023 15:21-0400 Systolic blood pressure 153 mm[Hg] Sandeep Lenz MD Work Phone: [facility] 05-19-2022 11:30-0400 Diastolic blood pressure 80 mm[Hg] Et3 [facility] 05-19-2022 11:30-0400 Heart rate 68 /min Et3 [facility] 05-19-2022 11:30-0400 Respiratory rate 16 /min Et3 [facility] 05-19-2022 11:30-0400 SaO2% (BldA) [Mass fraction] 98 % Et3 [facility] 05-19-2022 11:30-0400 Systolic blood pressure 175 mm[Hg] Et3 [facility] 01-08-2022 13:03-0400 Body height 162.6 cm Sandeep Lenz MD Work Phone: [facility] 01-08-2022 13:03-0400 Body temperature 97.39 [degF] Sandeep Lenz MD Work Phone: [facility] 01-08-2022 13:03-0400 Body weight 64.23 kg Sandeep Lenz MD Work Phone: [facility] 01-08-2022 13:03-0400 Diastolic blood pressure 69 mm[Hg] Sandeep Lenz MD Work Phone: [facility] 01-08-2022 13:03-0400 Heart rate 68 /min Sandeep Lenz MD Work Phone: [facility] 01-08-2022 13:03-0400 Respiratory rate 16 /min Sandeep Lenz MD Work Phone: [facility] 01-08-2022 13:03-0400 SaO2% (BldA) [Mass fraction] 97 % Sandeep Lenz MD Work Phone: [facility] 01-08-2022 13:03-0400 Systolic blood pressure 150 mm[Hg] Sandeep Lenz MD Work Phone: [facility] 11-11-2021 13:00-0500 Diastolic blood pressure 69 mm[Hg] MD Eduardo Sharpe Work Phone: [facility] 11-11-2021 13:00-0500 Heart rate 65 /min MD Eduardo Sharpe Work Phone: [facility] 11-11-2021 13:00-0500 Respiratory rate 16 /min MD Eduardo Sharpe Work Phone: [facility] 11-11-2021 13:00-0500 SaO2% (BldA) [Mass fraction] 96 % MD Eduardo Sharpe Work Phone: [facility] 11-11-2021 13:00-0500 Systolic blood pressure 129 mm[Hg] MD Eduardo Sharpe Work Phone: [facility] 11-11-2021 12:00-0500 Body temperature 98 [degF] MD Eduardo Sharpe Work Phone: [facility] 11-11-2021 06:00-0500 Body weight 63 kg MD Eduardo Sharpe Work Phone: [facility] 11-10-2021 12:59-0500 Body height 163.83 cm MD Eduardo Sharpe Work Phone: [facility] 11-09-2021 18:45-0500 Body mass index (BMI) [Ratio] 23.8 kg/m2 MD Eduardo Sharpe Work Phone: [facility] Encounters Encounter Date Encounter Type Care Provider Facility Start: 10-31-2023 Bamboo flowsheet Mark stout DO Work Phone: [facility] Start: 10-31-2023 Bamboo flowsheet Mark Galindo hler DO Work Phone: [facility] Start: 10-31-2023 End: 10-31-2023 ambulatory MARK ISABEL Not Available Start: 10-16-2023 End: 10-16-2023 ambulatory [facility] Start: 08-19-2023 End: 08-19-2023 ambulatory EDUARDO SHARPE Facility:[facility] Start: 08-19-2023 Telephone encounter Clemente Hull Hematology/Oncology Comment on above: Results Start: 07-02-2023 End: 07-02-2023 ambulatory EDUARDO SHARPE Facility:[facility] Start: 06-05-2023 End: 06-05-2023 ambulatory Bala Hartman Other [employer] [facility] [employer] Other Start: 06-05-2023 Telephone encounter Bala Hartman [facility] Start: 05-21-2023 Telephone encounter Clemente Hull Hematology/Oncology Comment on above: Results Start: 05-20-2023 End: 05-20-2023 ambulatory EDUARDO SHARPE Facility:[facility] Start: 05-20-2023 End: 05-20-2023 Office outpatient visit 25 minutes Sandeep Lenz MD Work Phone: Hematology/Oncology Comment on above: Hypercalcemia (Prima ry Dx); Malignant neoplasm of upper-outer quadrant of left breast in female, estrogen receptor positive (HCC); Stage 3 chronic kidney disease, unspecified whether stage 3a or 3b CKD (HCC) Start: 05-20-2023 Telephone encounter Sandeep bazan MD Work Phone: [facility] Comment on above: Referral Information (Nephrology) Start: 05-09-2023 Social Work Aleida QUESADA Hematolo gy/Oncology Start: 05-07-2023 Refill Sandeep aragon MD Work Phone: Hematology/Oncology Comment on above: Refill Request Start: 04-30-2023 End: 04-30-2023 Infusion Center Chair Nya Rodríguez Work Phone: Hematology/Oncology Comment on above: Hypercalcemia (Prima ry Dx); Other specified menopausal and perimenopausal disorders; Malignant neoplasm of upper-outer quadrant of left breast in female, estrogen receptor positive (HCC) Start: 04-29-2023 End: 04-29-2023 ambulatory EDUARDO SHARPE Facility:[facility] Start: 04-29-2023 End: 04-29-2023 Office outpatient [...] CKD (HCC) Start: 04-01-2023 End: 04-01-2023 ambulatory [facility] Start: 01-14-2023 End: 01-14-2023 ambulatory [facility] Start: 08-23-2022 End: 09-23-2022 ambulatory SHAIKH [...] Facility:[facility] Start: 05-21-2022 End: 05-22-[address] EDUAROD SHARPE Facility:[facility] Start: 05-19-2022 End: 05-21-2022 ambulatory UNKNOWN PROVIDER Facility:[facility] Start: 05-19-2022 End: 05-19-2022 ambulatory [facility] Emergenc y Triage, Treat and Transport Start: 05-19-2022 End: 05-19-2022 Emergency department patient visit [facility] Emergency Triage, Treat and Transport Comment on above: Arrived Start: 05-09-2022 End: 05-10-2022 ambulatory EDUARDO SHARPE Facility:[facility] Start: 05-07-2022 End: 05-08-[address] [...] encounter procedure Sandeep Lenz MD Work Phone: [facility] Comment on above: Malignant neoplasm o f upper-outer quadrant of left breast in female, estrogen receptor positive (HCC) (Primary Dx) Start: 01-05-2022 End: 01-06-2022 ambulatory SANDEEP LENZ Facility:[facility] Start: 12-27-2021 End: 12-27-2021 Patient encounter procedure MD Eduardo Sharpe Work Phone: [facility] Ctr-CT Scan Main [place] Start: 12-22-2021 End: 01-19-[address] EDUARDO SHARPE Facility:[facility] Start: 11-30-2021 End: 11-30-2021 ambulatory Brayden Hernandez Other [facility] [employer] Other Start: 11-30-2021 Office outpatient vi sit 15 minutes Brayden Hernandez [facility] Neurosurgery Start: 11-21-2021 End: 12-21-2021 ambulatory SHAIKH Barbara AGUIAR Facility:[facility] Start: 11-17-2021 End: 11-17-2021 Patient encounter procedure MD Eduardo Sharpe Work Phone: [facility]-CT Scan [facility] [place] Start: 11-09-2021 End: 11-11-2021 Evaluation and management of inpatient MD Eduardo Sharpe Work Phone: [facility] Start: 11-09-2021 End: 11-09-2021 ambulatory MIKALA HIGGINS Facility:[facility] Start: 10-24-2021 End: 11-20-2021 ambulatory SHAIKH Barbara AGUIAR Facility:[facility] Start: 09-28-2021 End: 10-23-2021 ambulatory TIBURCIO HENDERSON Facility:[facility] Procedures Date Procedure Procedure Detail Performing Clinician Start: 10-31-2023 End: 10-31-2023 Oph bmtry prtl coher intrfrmtry io lens pwr connie Mark Isabel DO Work Phone: Start: 10-31-2023 End: 10-31-2023 Ophth medical xm&eval compre new pt 1/> vst Age-related nuclear cataract of left eye Mark Isabel DO Work Phone: Comment on above: Age-related nuclear cataract of left eye (Primary Dx); Primary open angle glaucoma (POAG) of both eyes, mild stage (CMS/HCC) Start: 08-19-2022 Assistance with Respiratory Ventilation, 24-96 [...] Sharpe Work Phone: Start: 03-10-2020 Adult depression screening assessment Sandeep Lenz MD Work Phone: Plan of Treatment Date Care Activity Detail Author Start: 08-19-2026 [facility] Start: 05-20-2026 DIABETES SCREEN DIABETES SCREEN [facility] Start: 05-20-2026 Diabetes Screening Diabetes Screenin [facility] Start: 04-30-2026 DIABETES SCREEN DIABETES SCREEN [facility] Start: 04-29-2026 DIABETES SCREEN DIABETES SCREEN [facility] Start: 01-08-2025 DIABETES SCREEN DIABETES SCREEN [facility] Start: 08-19-2024 Hemoglobin/Hematocrit Hemoglobin/Hem [facility] Start: 08-19-2024 Serum Creatinine Serum Creatinine [facility] Start: 05-20-2024 HEMOGLOBIN/HEMATOCRIT HEMOGLOBIN/HEM [facility] Start: 05-20-2024 SERUM CREATININE SERUM CREATININE [facility] Start: 08-08-2024 HEMOGLOBIN/HEMATOCRIT HEMOGLOBIN/HEM ATOCRIT [facility] Start: 04-30-2024 SERUM CREATININE SERUM CREATININE Cl [facility] Start: 11-28-2023 End: 11-28-2023 Patient encounter procedure 11/28/2023 8:10 AM EST Procedure Visit [facility] Mark Isabel, DO [address] [place] [address] [facility] Start: 05-24-2023 Influenza vaccination C [facility] Start: 04-29-2023 End: 06-29-2023 Parathyrin related protein [Moles/volume] in Serum or Plasma PTH RELATED PEPTIDE Lab Routine Malignant neoplasm of upper-outer quadrant of left breast in female, estrogen receptor positive (HCC) Hypercalcemia Expected: 04/29/2023, Expires: 06/29/2023 [facility] Work Phone: Comment on above: Expected: 04/29/2023 , Expires: 06/29/2023 Start: 04-29-2023 End: 06-29-2023 PTH, INTACT (WITHOUT CALCIUM) PTH, INTACT (WITHOUT CALCIUM) Lab Routine Malignant neoplasm of upper-outer quadrant of left breast in female, estrogen receptor positive (HCC) Hypercalcemia Expected: 04/29/2023, Expires: 06/29/2023 [facility] Work Phone: Comment on above: Expected: 04/29/2023 , Expires: 06/29/2023 Start: 09-23-2022 ADVANCE DIRECTIVE DISCUSSION ADVANCE DIRECTIVE DISCUSSION [facility] Start: 09-23-2022 DEPRESSION ASSESSMENT DEPRESSION ASS ESSMENT [facility] Start: 07-09-2022 End: 09-08-2022 25-hydroxyvitamin D3 [Mass/volume] in Serum or Plasma VITAMIN D 25 HYDROXY Lab Routine Malignant neoplasm of upper-outer quadrant of left breast in female, estrogen receptor positive (HCC) Encounter for screening for osteoporosis Hypercalcemia Expected: 07/09/2022 (Approximate), Expires: 09/08/2022 [facility] Work Phone: Comment on above: Expected: 07/09/2022 (Approximate), Expires: 09/08/2022 Start: 07-09-2022 End: 09-08-2022 Calcitriol [Mass/volume] in Serum or Plasma VITAMIN D1 25-DIHYDR Lab Routine Malignant neoplasm of upper-outer quadrant of left breast in female, estrogen receptor positive (HCC) Encounter for screening for osteoporosis Expected: 07/09/2022 (Approximate), Expires: 09/08/2022 [facility] Work Phone: Comment on above: Expected: 07/09/2022 (Approximate), Expires: 09/08/2022 Start: 07-09-2022 End: 06-30-2023 CBC W Auto Differential panel - Blood CBC + DIFF Lab Routine Malignant neoplasm of upper-outer quadrant of left breast in female, estrogen receptor positive (HCC) Encounter for screening for osteoporosis Expected: 07/09/2022 (Approximate), Expires: 06/30/2023 [facility] Work Phone: Comment on above: Expected: 07/09/2022 (Approximate), Expires: 06/30/2023 Start: 07-09-2022 End: 06-30-2023 Comprehensive metabolic 2000 panel - Serum or Plasma COMP METABOLIC PANEL Lab Routine Malignant neoplasm of upper-outer quadrant of left breast in female, estrogen receptor positive (HCC) Encounter for screening for osteoporosis Expected: 07/09/2022 (Approximate), Expires: 06/30/2023 [facility] Work Phone: Comment on above: Expected: 07/09/2022 (Approximate), Expires: 06/30/2023 Start: 06-23-2022 Influenza vaccination Influenza Vacc ine (#1) [facility] Start: 05-24-2022 Influenza vaccination INFLUENZA (#1) [facility] Start: 09-23-2021 ADVANCE DIRECTIVE DISCUSSION ADVANCE DIRECTIVE DISCUSSION [facility] Start: 09-23-2021 DEPRESSION ASSESSMENT DEPRESSION ASS ESSMENT [facility] Start: 03-10-2021 Adult depression screening assessment DEPRESSION SCREENING [facility] Start: 06-17-2019 Pneumococcal Vaccine : 65+ (2 - PPSV23 or PCV20) Pneumococcal Vaccine: 65+ (2 - PPSV23 or PCV20) [facility] Start: 06-17-2019 PNEUMOCOCCAL: 65+ (2 - PPSV23 if available, else PCV20) PNEUMOCOCCAL: 65+ (2 - PPSV23 if available, else PCV20) [facility] Start: 06-17-2019 PNEUMOCOCCAL: 65+ (2 - PPSV23 or PCV20) PNEUMOCOCCAL: 65+ (2 - PPSV23 or PCV20) [facility] Start: 2009 BONE DENSITY BONE DENSITY [facility] Start: 2009 Bone Density Screening Bone Density Screening [facility] Start: 2009 Pneumococcal vaccination Pneumococcal Vaccine(s) (65+ yrs) (1 - PCV) [facility] Start: 2009 PNEUMOVAX AGE 65 AND OVER WITH 5YR LOOKBACK (#1) PNEUMOVAX AGE 65 AND OVER WITH 5YR LOOKBACK (#1) [facility] Start: 2009 Screening for osteoporosis Bone Densitometry [facility] Start: 2004 RSV Vaccine (1 - 1-d ose 60+ series) RSV Vaccine (1 - 1-dose 60+ series) [facility] Start: 1994 Shingles (RZV) Vacci ne (1 of 2) Shingles (RZV) Vaccine (1 of 2) [facility] Start: 1994 SHINGRIX VACCINE (1 of 2) SHINGRIX VACCINE (1 of 2) [facility] Start: 1963 Urine microalbumin profile [facility] Start: 1962 ANNUAL PCP TEAM SANDBLAST OPERATOR LES DISEASE VISIT ANNUAL PCP TEAM CHRONIC DISEASE VISIT [facility] Start: 1962 HEPATITIS C SCREENING HEPATITIS C SC REEYUMIKO [facility] Start: 1962 Hepatitis C screening Hepatitis C An tibody [facility] Start: 1962 Tetanus + diphtheria + acellular pertussis vaccine (product) Tdap [employer] [facility] Start: 1956 COVID-19 VACCINE (1) COVID-19 VACCIN E (1) [facility] Start: 04-09-1945 COVID-19 Vaccine (#1) COVID-19 Vacci ne (#1) [facility] End: 05-28-2024 Bone &/joint imaging whole body NM BONE WHOLE BODY Radiology Routine Malignant neoplasm of breast in female, estrogen receptor positive, unspecified laterality, unspecified site of breast (HCC) 1 Occurrences starting 04/29/2023 until 05/28/2024 [facility] Work Phone: Comment on above: [...] for 9 Occurrences starting 05/20/2023 until 05/19/2024 [facility] [employer] Work Phone: Comment on above: Every 6 [...] Occurrences starting 05/20/2023 until 05/19/2024, 1 completed [facility]hardw[facility] [employer] Work Phone: Comment on above: Every 6 [...] Occurrences starting 05/20/2023 until 05/19/2024, 1 completed [employer] Work Phone: Comment on above: Every 6 [...] Occurrences starting 05/20/2023 until 05/19/2024, 1 completed [facility] Work Phone: Comment on above: Every 6 weeks for 9 Occurrences starting 05/20/2023 until 05/19/2024, 1 completed Parathyrin related protein [Moles/volume] in Serum or Plasma PTH RELATED PEPTIDE Lab Routine Malignant neoplasm of upper-outer quadrant of left breast in female, estrogen receptor positive (HCC) Hypercalcemia 04/30/2023 3:55 PM EDT [facility] Work Phone: Patient Education Heart Healthy Diet [facility] Work Phone: Patient referral [facility] Work Phone: [facility] Immunizations Immunization Date Immunization Notes Care Provider [facility] 07-11-2022 influenza, high dose seasonal, preservative-free Clemente Srivastava RN [facility] 07-11-2022 pneumococcal polysaccharide vaccine, 23 valent Clemente Srivastava RN [facility] 07-11-2022 influenza virus vacc ine, unspecified formulation Sandeep Lenz MD Work Phone: [facility] 07-07-2021 influenza, high-dose , quadrivalent vaccine (FLUZONE HIGH DOSE QUADRIVALENT) Sandeep Lenz MD Work Phone: [facility] 07-07-2021 unknown vaccine or i mmune globulin Clemente Srivastava RN [facility] 06-12-2021 influenza, high dose seasonal, preservative-free Clemente Srivastava RN [facility] 06-22-2020 influenza, high dose seasonal, preservative-free Sandeep Lenz MD Work Phone: [facility] 06-15-2020 Seasonal trivalent influenza vaccine, adjuvanted, preservative free Sandeep Lenz MD Work Phone: [facility] 06-17-2018 influenza, high dose seasonal, preservative-free Sandeep Lenz MD Work Phone: [facility] 06-17-2018 pneumococcal conjuga te vaccine, 13 valent Sandeep Lenz MD Work Phone: [facility] 07-09-2017 influenza, high dose seasonal, preservative-free Sandeep Lenz MD Work Phone: [facility] 07-09-2017 pneumococcal conjuga te vaccine, 13 valent Sandeep Lenz MD Work Phone: [facility] Payers Date Payer Category Payer Unknown MEDICA RE SUPPLEMENT [id number] 2014-Present [phone] [address] [address] [place] [address] Indemnity [id number] 2014 Unknown [id number] 2009 Medicare MEDICARE MEDICAR E A AND B [id number] 2009-Present [phone] [address] [address] [place] [address] Medicare [id number] 2009 Medicare [id number] [id number] 1959 Medicare [id number] 1959 Unknown [id number] 1959 Unknown [id number] 1944 Unknown [id number] 2.16.840.1.879122.3.579.2.647 1944 Unknown [id number] 2.16.840.1.143699.3.579.2.732 1944 Unknown [id number] 2.16.840.1.868814.3.579.2.593 1944 Unknown [id number] 2.16.840.1.269187.3.579.2.593 1944 Unknown [id number] 2.16.840.1.156048.3.579.2.593 1944 Unknown [id number] 2.16.840.1.701506.3.579.2.593 1944 Unknown [id number] 2.16.840.1.925297.3.579.2.593 1944 Unknown [id number] 2.16.840.1.985211.3.579.2.593 1944 Unknown [id number] 2.16.840.1.507075.3.579.2.593 1944 Unknown [id number] 2.16.840.1.715349.3.579.2.593 1944 Unknown [id number] 2.16.840.1.255979.3.579.2.593 1944 Unknown [id number] 2.16.840.1.415792.3.579.2.593 1944 Unknown [id number] 2.16.840.1.601474.3.579.2.593 1944 Unknown [id number] 2.16.840.1.579525.3.579.2.593 1944 Unknown [id number] 2.16.840.1.047114.3.579.2.593 1944 Unknown [id number] 2.16.840.1.932599.3.579.2.593 1944 Unknown [id number] 2.16.840.1.578934.3.579.2.593 1944 Unknown [id number] 2.16.840.1.098724.3.579.2.593 1944 Unknown [id number] 2.16.840.1.852994.3.579.2.593 1944 Unknown [id number] 2.16.840.1.880941.3.579.2.593 1944 Unknown [id number] 2.16.840.1.716857.3.579.2.593 1944 Unknown [id number] 2.16.840.1.049164.3.579.2.593 1944 Unknown [id number] 2.16.840.1.485875.3.579.2.593 1944 Unknown [id number] 2.16.840.1.397354.3.579.2.593 1944 Unknown [id number] 2.16.840.1.952458.3.579.2.593 1944 Unknown [id number] 2.16.840.1.781138.3.579.2.125 9 Medicare Self Pay [id number] Self-pay Self Pay [id number] Unknown [id number] Unknown [id number] Social History Date Type Detail Facility Start: 11-10-2021 End: 04-29-2023 Tobacco smoking status NHIS Never smoked tobacco (finding) [facility] Start: 1945 Sex Assigned At Female F [facility] Start: 06-12-2018 End: 04-29-2023 Tobacco use and exposure Smokeless tobacco non-user [facility] Start: 01-08-2022 End: 08-19-2023 Alcohol intake Current drinker of alcohol (finding) [facility] Start: 06-12-2018 History SDOH Alcohol Comment very rare [facility] Start: 1945 Sex Assigned At Not on file C [facility] Start: 12-29-2021 End: 01-08-2022 Exposure to SARS-CoV-2 (event) Not sure [facility] Start: 04-29-2023 End: 08-19-2023 Sex Assigned At [facility] Tobacco smoking status NHIS Tobacco smoking consumption unknown [facility] Start: 04-29-2023 End: 08-19-2023 History of Social function [facility] Adult Depression Screening Assessment 0 [facility] NEGATED: Highlighted rowStart: NINF History of tobacco use Passive smoker [facility] Goals Date Patient Goal Desired Activity /State Functional Status Date Assessment Result Facility 11-09-2021 Functional status Patient at Baseline [facility] Work Phone: Mental Status Date Assessment Result Facility 11-09-2021 Cognitive function Cognitive Sta tus Patient at Baseline [facility] Work Phone: Clinical Notes 09-16-2020 to 10-31-2023 Mark Isabel, DO - 10/31/2023 10:45 AM ESTTelephone Encounter - Clemente Srivastava RN - 08/19/2023 2:47 PM ESTTelephone Encounter - Clemente Srivastava RN - 08/19/2023 2:47 PM ESTPatient Instructions Note Date & Type Note Facility 10-31-2023 History of Presen t illness Narrative Images from the original note were not included. Subjective Patient ID: Andrew Barros is a 78 y.o. female. Chief Complaint Cataract HPI Cataract In left eye. Associated symptoms include blurred vision, glare and haloes. Severity is moderate. Onset was gradual. Duration of 2 years. Frequency is constant. Context: distance vision, near vision, reading, driving and night driving. Since onset it is gradually worsening. Affected activities include reading, working on the computer, driving and night driving. Treatments tried include eye drops and glasses. Response to treatment was mild improvement. Comments Pt here for cataract evaluation left eye (OS) referred by Dr. Haider. Pt states having blurred vision left eye (OS). Pt had cataract extraction (CE) on right eye (OD) in 2006. Pt is diabetic. Unable to refract left eye (OS) Pt also applies topical anti glaucoma drops (gtts) in her eyes and is concerned about compliance and the progression of primary open angle glaucoma (POAG). No latex allergy No flomax No PM or defib Last edited by Mark Isabel DO on 10/31/2023 11:22 AM. Current Outpatient Medications (Ophthalmic Agents) Medication Sig Dispense Refill ketorolac (Acular) 0.5 % ophthalmic solution Administer 1 drop into affected eye(s) in the morning and 1 drop before bedtime. 5 mL 1 latanoprost (Xalatan) 0.005 % ophthalmic solution Ophthalmic for 30 Days ofloxacin (Ocuflox) 0.3 % ophthalmic solution Administer 1 drop into the right eye 5 (five) times a day for 1 day Starting 1 day before surgery, continue after surgery as directed 5 mL 1 No current facility-administered medications for this visit. (Ophthalmic Agents) Current Outpatient Medications (Other) Medication Sig Dispense Refill amLODIPine (Norvasc) 5 MG tablet Take 1 tablet by mouth in the morning and 1 tablet before bedtime. anastrozole (Arimidex) 1 MG chemo tablet Take 1 tablet by mouth Daily. doxazosin (Cardura) 4 MG tablet Take 4 mg by mouth at bedtime propafenone SR (Rythmol SR) 325 MG 12 hr capsule Take 1 capsule by mouth every 12 (twelve) hours aspirin 81 MG chewable tablet Chew 1 tablet every day by oral route. carvedilol (Coreg) 25 MG tablet Take 0.5 tablets twice a day by oral route for 90 days. ezetimibe (Zetia) 10 MG tablet TAKE 1 TABLET BY MOUTH EVERY DAY FOR 30 DAYS ferrous sulfate 325 (65 Fe) MG tablet TAKE 1 TABLET BY MOUTH TWICE A DAY for 90 furosemide (Lasix) 40 MG tablet Take 40 mg by mouth in the morning. metFORMIN (Glucophage) 500 MG tablet Take 1 tablet by mouth in the morning and 1 tablet before bedtime. omeprazole (PriLOSEC) [address] capsule Take 1 capsule by mouth in the morning. potassium chloride CR (Klor-Con) 10 MEQ ER tablet Take 10 mEq by mouth in the morning. No current facility-administered medications for this visit. (Other) Past Medical History: Diagnosis Date Atrial fibrillation (CMS/HCC) Chronic kidney disease Glaucoma (CMS/HCC) Hypertension (CMS/HCC) Type 2 diabetes mellitus (CMS/HCC) Allergies Allergen Reactions Statins Other Reaction(s): joint pain, muscle pain Review of Systems Constitutional: Negative. HENT: Negative. Eyes: Negative. Respiratory: Negative. Cardiovascular: Negative. Gastrointestinal: Negative. Genitourinary: Negative. Musculoskeletal: Negative. Skin: Negative. Neurological: Negative. Psychiatric/Behavioral: Negative. Hematological: Negative. Endocrine: Negative. Allergic/Immunologic: Negative. Objective Base Eye Exam Visual Acuity (Snellen - Linear) Right Left Dist cc 20/25 20/50 +2 Correction: Glasses Tonometry (Applanation, 11:25 AM) Right Left Pressure 15 15 Dilation Both eyes: 1.0% Mydriacyl @ 11:13 AM Additional Tests Keratometry K1 [place] K2 [place] Right 43.50 153 44 63 Left 43.75 17 44 107 Glare Testing High Right 20/80 Left 20/200 Slit Lamp and Fundus Exam External Exam Right Left External Brow ptosis Brow ptosis Slit Lamp Exam Right Left Lids/Lashes Blepharitis, Ptosis Blepharitis, Ptosis Conjunctiva/Sclera White and quiet White and quiet Cornea Decreased tear film Decreased tear film Anterior Chamber Deep and quiet Deep and quiet Iris Round and reactive Round and reactive Lens Posterior chamber intraocular lens, 2+ Posterior capsular opacification 3+ Nuclear sclerosis, 1+ Cortical cataract Anterior Vitreous Normal Normal Fundus Exam Right Left Disc Normal Normal C/D Ratio 0.75 0.75 Macula Normal Normal Vessels Normal Normal Periphery Normal Normal Refraction Wearing Rx Sphere Cylinder [place] Add Right -1.00 +0.00 180 +2.50 Left +1.75 -0.50 036 +2.50 Manifest Refraction Sphere Cylinder [place] Right -0.25 -0.75 141 Left Final Rx Sphere Cylinder [place] Dist [place] Add Right -1.00 20/25 +2.50 Left +1.25 -0.50 035 20/50 +2.50 Expiration Date: 10/31/2024 Assessment/Plan Age-related nuclear cataract of left eye - Visually Significant Cataract, OU: I discussed the risks, benefits, alternatives, and expectations of cataract surgery. A complete ophthalmic exam was performed and it was determined that the cataracts were a primary source of vision decline, affecting activities of daily living, necessitating removal. Limited vision post-surgery may occur with pre-existing conditions affecting other areas of the eye or the brain was explained and the patient displayed an understanding. The overall objective is to improve ADLs, not eliminate glasses or restore vision to 20/20. Tests were reviewed - the different lens options were explained including the wsm-rl-yhvies fees for any upgrades. Intraocular lens (IOL) selection may be altered either prior to or during the procedure based on the doctor's discretion including reverting to a traditional intraocular lens (IOL). They understood that there will exist the potential of glasses prescription need post surgery for near, distance or possibly both. The patient stated a full understanding and a desire to proceed with the procedure. The patient received cataract measurements and had any additional questions answered. - A complete exam was performed including a physical exam: General: AAOx3 and NAD, Lungs: Clear, Heart: RRR, Abdomen: S/NT/ND, Extremities: no pitting edema. - Coordination of care will be shared with Dr. Haider. Cataract Surgery for OS will take place - 11/27. Primary open angle glaucoma (POAG) of both eyes, mild stage (CMS/HCC) - The patient demonstrates mild to moderate severity of open angle glaucoma as well as a visually significant cataract(s). They are also currenlty treated with ocular - hypotensive medication. In conjunction with the planned cataract removal, it has been recommended that they receive a Hydrus Stent insertion to better control/stabilize their sight threatening condition. R/B/A/E provided for the procedures listed above. This is deemed medically necessary due to their poor compliance and concern with progression of disease. They also state that their topical medication creates side effects that forces them to remain poorly compliant. documented in this encounter [facility] 10-16-2023 Note [place] Cardiology - [facility] Subjective Andrew Barros is a 78 y.o. year old female patient being seen for 6 mo follow up PAD, mitral valve regurgitation, chronic diastolic heart failure, and hypertension. Lisinopril was stopped at last visit in February 2023, and doxazosin was started. She was admitted to [facility] 2 weeks ago for hypomagnesemia and GO. She has not seen nephrology because Dr. Sharpe advised she didn't need to. She denies chest pain, SOB, palpitations, and lightheadedness. Patient Active Problem List Diagnosis Congestive heart failure (CMS/HCC) Hypertensive disorder Malignant neoplasm of upper-outer quadrant of left breast in female, estrogen receptor positive (CMS/HCC) Mitral valve regurgitation Other specified menopausal and perimenopausal disorders Paroxysmal atrial fibrillation (CMS/HCC) Type 2 diabetes mellitus (CMS/HCC) History of intracranial hemorrhage Hypercalcemia Stage 3 chronic kidney disease (CMS/HCC) Family History Problem Relation Name Age of Onset Coronary artery disease Mother Coronary artery disease Father Coronary artery disease Sister Coronary artery disease Brother Social History Tobacco Use Smoking status: Never Smokeless tobacco: Never Substance Use Topics Alcohol use: Not Currently HPI Andrew is seen in follow-up. She is a 78-year-old woman with prior history of hypertension, paroxysmal [...] February 2023 she was admitted to the [facility] emergency room with epistaxis. She was treated with packing. In December 2022 she was seen in clinic, lisinopril 5 mg daily was added to control blood pressures. Her follow up renal function showed worsening. At last visit of 04/01/2023 I stopped lisinopril due to worsening renal function and added doxazosin. Follow-up blood testing 08/19/2023 showed improvement in renal function. On 09/29/2023 she was admited with dehydration, acute kidney injury found to have c-dff colitis with acute lower gi blood loss anemia. Hydrated overnight, started on vanco and Flagyl. Creatinine improved from 2 to 1.44. Currently she denies angina and heart failure symptoms. She has mild intermittent lower extremity edema. She has no palpitations. Review of Systems Constitutional: Positive for malaise/fatigue. Cardiovascular: Positive for leg swelling (minimal). Musculoskeletal: Positive for falls. Gastrointestinal: Negative for diarrhea and dysphagia. Neurological: Negative for light-headedness and loss of balance. All other systems reviewed and are negative. Objective Visit Vitals BP 134/74 (BP Location: Left arm, Patient Position: Sitting) Pulse 64 Ht 1.651 m (5' 5 ) Wt 61.2 kg (135 lb) SpO2 99% BMI 22.47 kg/m??? Smoking Status Never BSA 1.68 m??? Physical Exam Constitutional: Appearance: She is well-developed. She is not ill-appearing. Comments: Thin appearing HENT: Head: Normocephalic and atraumatic. Nose: Nose normal. Eyes: General: No scleral icterus. Pupils: Pupils are equal, round, and reactive to light. Neck: Thyroid: No thyromegaly. Vascular: No JVD. Cardiovascular: Rate and Rhythm: Normal rate and regular rhythm. (more content not included)... [facility] 08-19-2023 Note HNO ID: [id number] Author: Sandeep Lenz MD Service: ? Author Type: Physician Type: Progress Notes Filed: 08/20/2023 7:07 AM Note Text: [facility] NAME: Andrew Barros CLINIC NO.: [id number] DATE OF SERVICE: August 19, 2023 (Eduardo) [...] outer quadrant, invasive ductal carcinoma, ER postive, SD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 Mammograms at [facility] on 01/04/2021 Bi-Rads 2 benign. __ [...] or petechiae. ALLERGIES (more content not included)... [facility] 08-19-2023 Miscellaneous Notes Pt aware of Orlando's message. She denies any additional questions, needs or concerns at this time. Clemente Srivastava RN ----- Message from Sandeep Lenz MD sent at 08/19/2023 2:33 PM EST ----- Calcium janki normal. Kidney function is stable documented in this encounter [facility] 06-10-2023 Miscellaneous Notes Called Nephrology office [...] Thanks! Samina Anderson documented in this encounter [facility] 05-21-2023 Miscellaneous Notes Pt aware of [...] CBC was normal. documented in this encounter [facility] 05-20-2023 Note HNO ID: [id number] Author: Sandeep Lenz MD Service: ? Author Type: Physician Type: Progress Notes Filed: 05/30/2023 5:58 AM Note Text: [facility] NAME: Andrew Barros [facility] NO.: [id number] DATE OF SERVICE: May 20, 2023 (Eduardo) [...] outer quadrant, invasive ductal carcinoma, ER postive, SD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 Mammograms at [facility] on 01/04/2021 Bi-Rads 2 benign. REVIEW [...] wounds or petechiae. ALLERGIES: ALLERGIES Allergen Reactions Xztdscs-Juw-Ibt Red* Unknown Other reaction(s): AOF MEDICATIONS: anastrozole [...] See your shae (more content not included)... [facility] 05-20-2023 Instructions Sandeep Lenz MD - 05/20/2023 3:59 PM EDT Continue Arimidex. Refer to nephrology for hypercalcemia and kidney failure Repeat labs today RTC in 3 months - repeat labs documented in this encounter [facility] 05-20-2023 History of Presen t illness Narrative [facility] NAME: Andrew Barros CLINIC NO.: [id number] DATE OF SERVICE: May 20, 2023 (Eduardo) [...] outer quadrant, invasive ductal carcinoma, ER postive, SD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 Mammograms at [facility] on 01/04/2021 Bi-Rads 2 benign. REVIEW [...] wounds or petechiae. ALLERGIES: ALLERGIES Allergen Reactions Muupyvj-Puy-Tor Red* Unknown Other reaction(s): AOF MEDICATIONS: anastrozole [...] which included preparing to see the patient, acho-wj-eeaf patient care, completing clinical documentation, obtaining and/or reviewing separately obtained history, performing a medically appropriate examination, communicating results to the patient/family/caregiver and care coordination (not separately reported). Sandeep Lenz MD, CPE Services Provided at: [place], [place] & [place], [place] CC: Eduardo Sharpe MD [address] [facility] [address] documented in this encounter [facility] 05-09-2023 Note HNO ID: [id number] Author: Aleida Vargas LSW Service: ? Author Type: Train Crew Member Type: Progress Notes Filed: 05/09/2023 11:00 AM Note Text: Patient appears on the [facility] First Time Treatment List for a non-oncology treatment. No psychosocial assessment is indicated. DAPHNE Gupta [facility] 05-09-2023 History of Presen t illness Narrative Patient appears on the [facility] First Time Treatment List for a non-oncology treatment. No psychosocial assessment is indicated. DAPHNE Gupta documented in this encounter [facility] 04-29-2023 Note HNO ID: [id number] Author: Sandeep Lenz MD Service: ? Author Type: Physician Type: Progress Notes Filed: 05/05/2023 6:04 PM Note Text: NAME: Andrew Barros [facility] NO.: [id number] DATE OF SERVICE: April 29, 2023 (Eduardo) [...] outer quadrant, invasive ductal carcinoma, ER postive, SD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 Mammograms at [facility] on 01/04/2021 Bi-Rads 2 benign. REVIEW [...] of recurring mass. ALLERGIES: ALLERGIES Allergen Reactions Zqqdvxs-Gme-Eba Red* Unknown Other reaction(s): AOF MEDICATIONS: doxazosin [...] mouth twice elaine (more content not included)... [facility] 04-29-2023 Instructions Sandeep Lenz MD - 04/29/2023 4:09 PM EDT Continue Arimidex. Stop Calcium Continue Vitamin D. Zometa for hypercalcemia later this week Repeat labs and tumor markers prior to zometa Bone scan - [facility] is fine. RTC after Bone scan documented in this encounter [facility] 04-29-2023 History of Presen t illness Narrative Images from the original note were not included. NAME: BarrosAndrew CLINIC NO.: [id number] DATE OF SERVICE: April 29, 2023 (Eduardo) [...] outer quadrant, invasive ductal carcinoma, ER postive, SD positive, Her2 lauren negative; 1.6 cm x [...] markers prior to zometa Bone scan - [facility] is fine. RTC after Bone scan TREATMENT [...] start on Vit-D + Calcium. Mammograms at [facility] on 01/04/2021 Bi-Rads 2 benign. REVIEW [...] of recurring mass. ALLERGIES: ALLERGIES Allergen Reactions Mrjtjkk-Ahx-Ghc Red* Unknown Other reaction(s): AOF MEDICATIONS: doxazosin [...] acetaminophen 650 mg tab(s) (TYLENOL), DISCONTINUED: zoledronic vm-zjgruqhr-2.9NaCl 4 mg iv piggyback 100 mL (ZOMETA) (E83.52) Hypercalcemia Plan: CA 27.29 BLOOD, CA 15-3 BLD, CBC + DIFF, COMP METABOLIC PANEL, PTH, INTACT (WITHOUT CALCIUM), PTH RELATED PEPTIDE, PTH, INTACT (WITHOUT CALCIUM), DISCONTINUED: PHARMACY COMMUNICATION PATIENT ARRIVED, DISCONTINUED: acetaminophen 650 mg tab(s) (TYLENOL), DISCONTINUED: zoledronic mv-ckqysrqw-7.9NaCl 4 mg iv piggyback 100 mL (ZOMETA) [...] which included preparing to see the patient, zdzj-ka-wmwu patient care, completing clinical documentation, obtaining and/or reviewing separately obtained history, performing a medically appropriate examination, communicating results to the patient/family/caregiver and care coordination (not separately reported). Sandeep Lenz MD, CPE Services Provided at: [facility], [place], [place] & [place], [place] CC: Eduardo Sharpe MD [address] [facility] [address] documented in this encounter [facility] 04-01-2023 Note [place] Cardiology - [facility] Subjective Andrew Barros is a [...] February 2023 she was admitted to the [facility] emergency room with epistaxis. She was treated [...] General: Skin i (more content not included)... [facility] 01-14-2023 Note Cardiology Clinic No [...] feeling fatigued. -She was recently discharged from [facility] d/t PNA and sepsis. She was [...] perfused Neuro: A&Ox3, (more content not included)... [facility] 06-29-2022 Miscellaneous Notes Patient has an appt on 07/09/22. Would you like labs, if so place orders. Arabella Cotter MA documented in this encounter [facility] 05-19-2022 History of Presen t illness Narrative Images from the original note were not included. EMERGENCY TRIAGE, TREAT AND TRANSPORT (ET3) DOCUMENTATION OF TELEHEALTH VISIT Date / Time: 05/19/2022 / 1130 Name: Andrew Barros : 1945 SSN: (Not on file) EMS Agency: [facility] [x] Verbal consent obtained [] [...] Kristian Mcwilliams MD documented in this encounter [facility] 01-08-2022 History of Presen t illness Narrative Images from the original note were not included. Radiation Oncology - Follow Up Note PATIENT NAME: Andrew Barros PATIENT DIAGNOSIS/PATIENT IDENTIFICATION: Ms. Barros is a 76-year old female with Infiltrating ductal carcinoma of the Left breast, UOQ, pathologic stage IIA (pT1c pN1a M0), ER-positive, SD-positive and Her2/lauren not amplified, s/p partial mastectomy [...] was otherwise noncontributory. ALLERGIES ALLERGIES Allergen Reactions Mwpwffq-Wqy-Kwp Red* Unknown Other reaction(s): AOF MEDICATIONS: Current [...] pathologic stage IIA (pT1c pN1a M0), ER-positive, SD-positive and Her2/lauren not amplified, s/p partial mastectomy [...] which included preparing to see the patient, qlhm-fr-uddt patient care and counseling and educating the patient/family/caregiver. This document has been created with the use of voice recognition technology. It may contain inaccuracies, misspellings, inaccurate syntax or inappropriate word context that are a result of the inadequacies/shortcomings of said technology/software. documented in this encounter [facility] 01-08-2022 History of Presen t illness Narrative Images from the original note were not included. NAME: Andrew Barros [facility] NO.: [id number] DATE OF SERVICE: January 08, 2022 Some [...] outer quadrant, invasive ductal carcinoma, ER postive, SD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 Mammograms at [facility] on 01/04/2021 Bi-Rads 2 benign. REVIEW [...] of recurring mass. ALLERGIES: ALLERGIES Allergen Reactions Sroohnb-Auf-Jdx Red* Unknown Other reaction(s): AOF MEDICATIONS: amLODIPine [...] which included preparing to see the patient, fpjj-sy-huyy patient care, completing clinical documentation, obtaining and/or reviewing separately obtained history, performing a medically appropriate examination, communicating results to the patient/family/caregiver and care coordination (not separately reported). Sandeep Lenz MD, CPE Services Provided at: [place], [place] & [place], [place] CC: Eduardo Sharpe MD [address] [facility] [address] documented in this encounter [facility] 01-08-2022 Nurse Note Patient has had brain bleeds since being here last she is seeing Dr. Hernandez , she has been in [facility] as an inpatient due to the bleeds. Arabella Cotter MA documented in this encounter [facility] 11-30-2021 Evaluation note Encounter Date Diagnosis [...] present CT and compared to the previous. [employer] Other 12-25-2020 NoteMicrobiology PROCEDURE: Blood Culture Charcoal [R1] SOURCE: Blood BODY SITE: Arm L COLLECTED DATE/TIME: 09/09/2020 13:00 EST RECEIVED DATE/TIME: 09/09/2020 14:05 EST START DATE/TIME: 09/09/2020 14:05 EST FREE TEXT SOURCE: lt chelle Pettit DO, Koko Lopez DO FINAL REPORTS Final Report [] Verified Date/Time: 09/16/2020 16:03 EST No growth at 7 days. Performing Locations R1: This test was performed at: [facility], [address] [place] [address], [address] [place] [address], [address] [facility] [address] HospitalComment on above:Performed By: #### [id number] ####[address] [id number] NoteMicrobiology PROCEDURE: Blood Culture Charcoal [R1] SOURCE: Blood BODY SITE: Hand L COLLECTED DATE/TIME: 09/09/2020 13:49 EST RECEIVED DATE/TIME: 09/09/2020 14:06 EST START DATE/TIME: 09/09/2020 14:06 EST FREE TEXT SOURCE: Koko Pettit DO, DO, John FINAL REPORTS Final Report [] Verified Date/Time: 09/16/2020 16:01 EST No growth at 7 days. Performing Locations R1: This test was performed at: [facility], [address] [place] [address], [id number] , [place], [address]oba[address] [facility] [address] [facility] HospitalComment on above:Performed By: #### [id number] #### [facility] [address] [place] [id number] note* Diagnosis Onset Date Resolution Status Atrial fibrillation acute Diabetes acute Hypertension acute Intracerebral hemorrhage acu te Nontraumatic intracerebral hemorrhage acute [facility] Work Phone: Evaluation note* Diagnosis Malignant neoplasm of upper-outer quadrant of left breast in female, estrogen receptor positive (HCC)- Primary Encounter for screening for osteoporosis Special screening for osteoporosis Hypercalcemia [facility] Diagnosis Malignant neoplasm of upper-outer quadrant of left breast in female, estrogen receptor positive (HCC)- Primary [facility]* Diagnosis Dyspnea, unspecified type- Primary [facility] Diagnosis Malignant neoplasm of upper-outer quadrant of left breast in female, estrogen receptor positive (HCC)- Primary Encounter for screening for osteoporosis Special screening for osteoporosis Hypercalcemia Hypercalcemia [facility]* Diagnosis Malignant neoplasm of upper-outer quadrant of left breast in female, estrogen receptor positive (HCC) [facility]* Diagnosis Hypercalcemia- Primary Other specified menopausal and perimenopausal disorders Malignant neoplasm of upper-outer quadrant of left breast in female, estrogen receptor positive (HCC) [facility]* Diagnosis Malignant neoplasm of upper-outer quadrant of left breast in female, estrogen receptor positive (HCC)- Primary Hypercalcemia Malignant neoplasm of breast in female, estrogen receptor positive, unspecified laterality, unspecified site of breast (HCC) Stage 3 chronic kidney disease, unspecified whether stage 3a or 3b CKD (HCC) [facility]* Diagnosis Malignant neoplasm of upper-outer quadrant of left breast in female, estrogen receptor positive (HCC) [facility]* Diagnosis Hypercalcemia- Primary Malignant neoplasm of upper-outer quadrant of left breast in female, estrogen receptor positive (HCC) Stage 3 chronic kidney disease, unspecified whether stage 3a or 3b CKD (HCC) documented [facility] encounter [facility] noteNo InformationNortJames E. Van [facility] [employer] Other Evaluation note* Diagnosis Age-related nuclear cataract of left eye- Primary Primary open angle glaucoma (POAG) of both eyes, mild stage (CMS/HCC) [facility] N[facility]ative - Reported* Type Description Date Medical History hypertension Medical History heart disease Medical History Esophageal reflux Medical History diabetes mallitus Medical History cancer Surgical History breast cancer Hospitalization History See Above [facility] Other reason for referral (narrative)* Diagnostic Procedure Only (Routine) - Pending Review Specialty Diagnoses / Procedures Referred By Contac t Referred To Contact MOLECULAR & FUNCTIONAL IMAGING Diagnoses Malignant neoplasm of breast in female, estrogen receptor positive, unspecified laterality, unspecified site of breast (HCC) Procedures NM BONE WHOLE BODY BONE &/JOINT IMAGING WHOLE BODY Sandeep Lenz MD [address] [place] [address] [place] [address] Molecular & Functional Imaging [address] [place] [address] Referral ID Status Reason Start Date Expiration Date Visits Requested Visits Authorized [id number] Pending Review Auto-Generat ed Referral 04/29/2023 05/28/2024 1 1 [facility] Summary Purpose Family History No Family [...] 04/30/2023 2:46 PM EDT 650 mg zoledronic hs-mppjissf-1.9NaCl 4 mg iv piggyback 100 mL (ZOMETA) [...] (HCC) Procedures CONSULT TO KIDNEY MEDICINE OFFICE/OUTPATIENT [facility] HIGH MDM 60-74 MINUTES Sandeep Lenz MD [address] [place] [address] [address] [place], [place] [address] Referral ID Status Reason Start Date Expiration Date Visits Requested Visits Authorized [id number] Authorized PCP Requested Referral 05/20/2023 05/19/2024 1 1 Additional Source Comments INFORMATION SOURCE (unrecogn ized section and content) DATE CREATED AUTHOR 01/18/2021 [facility] DATE CREATED AUTHOR AUTHOR'S ORGANIZ ATION 01/10/2022 [facility] DATE CREATED AUTHOR AUTHOR'S ORGANIZ ATION 05/15/2022 [facility] DATE CREATED AUTHOR AUTHOR'S ORGANIZ ATION 05/22/2022 [email or web address] DATE CREATED AUTHOR AUTHOR'S ORGANIZ ATION 09/24/2022 [facility] DATE CREATED AUTHOR AUTHOR'S ORGANIZ ATION 08/20/2023 [facility] DATE CREATED AUTHOR AUTHOR'S ORGANIZ ATION 11/01/2023 [facility] DATE CREATED AUTHOR AUTHOR'S ORGANIZ ATION 11/09/2023 [facility] Care Teams (unrecognized sec tion and [...] Eduardo Sharpe MD Primary Care Provider Active Project Surveyor Relationship Specialty Start Date End Date Eduardo Sharpe MD [address] [id number] PCP - General Family Practice 05/30/18 Project Surveyor Relationship Specialty Start Date End Date Eduardo Sharpe MD [address] [id number] PCP - General Family Practice 05/30/18 Project Surveyor Relationship Specialty Start Date End Date Eduardo Sharpe MD [address] [id number] PCP - General Family Medicine 05/30/18 Project Surveyor Relationship Specialty Start Date End Date Eduardo Sharpe MD [address] [id number] PCP - General Family Medicine 05/30/18 Project Surveyor Relationship Specialty Start Date End Date Eduardo Sharpe MD PCP - General Family Medicine 05/30/18 Project Surveyor Relationship Specialty Start Date End Date Eduardo Sharpe MD PCP - General Family Medicine 05/30/18 Project Surveyor Relationship Specialty Start Date End Date Eduardo Sharpe MD PCP - General Family Medicine 05/30/18 Project Surveyor Relationship Specialty Start Date End Date Eduardo Sharpe MD PCP - General Family Medicine 05/30/18 Project Surveyor Relationship Specialty Start Date End Date Eduardo Sharpe MD PCP - General Family Medicine 05/30/18 Project Surveyor Relationship Specialty Start Date End Date Eduardo Sharpe MD PCP - General Family Medicine 05/30/18 Project Surveyor Relationship Specialty Start Date End Date Eduardo Sharpe MD PCP - General Family Medicine 05/30/18 Project Surveyor Relationship Specialty Start Date End Date Eduardo Sharpe MD PCP - General Family Medicine 05/30/18 Source Comments (unrecognize d section and content) In the event this informatio n is protected by the Federal Confidentiality of Alcohol and Drug Abuse Patient Records regulations: The Federal rules restrict any use of the information to criminally investigate or prosecute any alcohol or drug abuse patient.[facility] the event this information is protected by the Federal Confidentiality of Alcohol and Drug Abuse Patient Records regulations: The Federal rules restrict any use of the information to criminally investigate or prosecute any alcohol or drug abuse patient.[facility] the event this information is protected by the Federal Confidentiality of Alcohol and Drug Abuse Patient Records regulations: The Federal rules restrict any use of the information to criminally investigate or prosecute any alcohol or drug abuse patient.[facility] the event this information is protected by the Federal Confidentiality of Alcohol and Drug Abuse Patient Records regulations: The Federal rules restrict any use of the information to criminally investigate or prosecute any alcohol or drug abuse patient.[facility] the event this information is protected by the Federal Confidentiality of Alcohol and Drug Abuse Patient Records regulations: The Federal rules restrict any use of the information to criminally investigate or prosecute any alcohol or drug abuse patient.[facility] Hospital[facility] the event this information is protected by the Federal Confidentiality of Alcohol and Drug Abuse Patient Records regulations: The Federal rules restrict any use of the information to criminally investigate or prosecute any alcohol or drug abuse patient.[facility] Hospital[facility] the event this information is protected by the Federal Confidentiality of Alcohol and Drug Abuse Patient Records regulations: The Federal rules restrict any use of the information to criminally investigate or prosecute any alcohol or drug abuse patient.[facility] Hospital[facility] the event this information is protected by the Federal Confidentiality of Alcohol and Drug Abuse Patient Records regulations: The Federal rules restrict any use of the information to criminally investigate or prosecute any alcohol or drug abuse patient.[facility] Hospital[facility] the event this information is protected by the Federal Confidentiality of Alcohol and Drug Abuse Patient Records regulations: The Federal rules restrict any use of the information to criminally investigate or prosecute any alcohol or drug abuse patient.[facility] HospitalIn the event this information is protected by the Federal Confidentiality of Alcohol and Drug Abuse Patient Records regulations: The Federal rules restrict any use of the information to criminally investigate or prosecute any alcohol or drug abuse patient.[facility] HospitalIn the event this information is protected by the [facility] Confidentiality of Alcohol and Drug Abuse Patient Records regulations: The Federal rules restrict any use of the information to criminally investigate or prosecute any alcohol or drug abuse patient.[facility] HospitalIn the event this information is protected by the Federal Confidentiality of Alcohol and Drug Abuse Patient Records regulations: The Federal rules restrict any use of the information to criminally investigate or prosecute any alcohol or drug abuse patient.[facility] Reason for Visit (unrecogniz ed section and content) Reason Comments Breast Cancer 5 month follow up Reason Comments Breast Cancer Reason Comments Shortness of breath Reason Comments Lab Orders Reason Comments Refill Request Specialty Diagnoses / Procedures Referred By Contac t Referred To Contact Diagnoses Malignant neoplasm of upper-outer quadrant of left breast in female, estrogen receptor positive (HCC) Other specified menopausal and perimenopausal disorders Hypercalcemia Sandeep Lenz MD [facility] [address] [place] [address] [employer] [facility] [place] [place] [address] Referral ID Status Reason Start Date Expiration Date V isits Requested Visits Authorized [id number] Authorized 04/29/2023 07/28/2023 99 99 Reason Comments Breast Cancer 1 year follow up Reason Comments Results Reason Comments Breast Cancer Followup Reason Comments Referral Information Nephrology Reason Comments Cataract FOR RECORDS PERTAINING TO PATIENTS WHO ARE [...] BE BASED ON THE PRIMARY CLINICAL RECORDS. [facility] [employer] [facility]. provides no warranty or guarantee of the accuracy or completeness of information in this document.
[2023-11-13 10:39] LABS: Alanine Aminotransferase 16 U/L (14-59); Albumin Globulin Ratio 0.7; Albumin Level 3.2 g/dL (3.4-5.0); Alkaline Phosphatase 88 U/L (46-116); Anion Gap 15.4; Aspartate Amino Transferase 13 U/L (15-37); BUN Creatinine Ratio 13.2; Bilirubin Total 0.5 mg/dL (0.2-1.0); Calcium 9.6 mg/dL (8.5-10.1); Carbon Dioxide 26.3 mmol/L (21.0-32.0); Chloride 104 mmol/L (98-107); Estimated GFR (African America 27 (>=60); Estimated GFR (Non-African Ame 22 (>=60); Globulin 4.4 g/dL; Glucose 208 mg/dL (74-106); Potassium 4.7 mmol/L (3.5-5.1); Sodium 141 mmol/L (136-145); Total Protein 7.6 g/dL (6.4-8.2)
== END 2023-11-13 09:36 | disposition home or self-care (01) ==
PROVIDERS: PCP Family Medicine; Visit Provider Family Medicine
DX: I50.9 Heart failure, unspecified (principal)
CPT/HCPCS: 36415; 80053

== ENCOUNTER 2023-11-20 08:10 | Outpatient (OUT) | payer MEDICARE, OTHER, SELFPAY ==
--- NOTE | 2023-11-20 08:13 | US_ITS ---
The [address] [address] Patient Name: ANDREW JAMISON MRN: [id number] date: 1945 Sex: F Assigned Patient Location: Current Patient Location: [place] Accession/Order Number: [id number] Exam Date: 11/20/2023 08:28 Report Date: 11/20/2023 09:25 At the request of: EDUARDO SHARPE Procedure: US renal BI EXAMINATION: US renal BI HISTORY: Kidney Failure N19, Acute Kidney Injury N17.9 COMPARISON: No relevant comparison available. TECHNIQUE: Ultrasound examination was performed of the bladder. FINDINGS: Right Kidney: Normal in contour. The cortex measures 0.7 cm. Diffuse increase in cortical echotexture. No solid cortical mass or hydronephrosis. Multiple nonobstructing nephroliths Height: 5.4 cm Length: 9.3 cm Width: 4.3 cm Left Kidney: Normal in contour. The cortex measures 0.7 cm. Diffuse increase in cortical echotexture. No solid cortical mass or hydronephrosis. Multiple nonobstructing nephroliths Height: 4.6 cm Length: 10.1 cm Width: 4.2 cm Multiple echogenic foci in the spleen likely prior granulomatous process US/US renal BI IMPRESSION: Bilateral cortical thinning and increased cortical echotexture suggesting medical renal disease Bilateral nonobstructing nephrolithiasis Electronically authenticated by: RE COLE Date: 11/20/2023 09:25
--- OUTSIDE RECORDS SUMMARY | 2023-11-20 08:13 | XMS_ITS | CCD ---
Author Name Unknown Address [address] [place] [address] Organization [facility] Care Team Providers Care Cherry Picker Operator Name Role Phone MD Eduardo Sharpe Primary Care Provider [phone] MD Radha Echavarriaop Admit Provider MD Radha Echavarriaop Attending Provider [phone] MD Brayden Hernandez Other Provider MD Brayden Hernandez Attending Provider Eduardo Sharpe MD Primary Care Provider [phone] Brayden Hernandez Unavailable EDUARDO SHARPE Primary Care Unavailable EDUARDO SHARPE Referring Unavailable GANESH HALE Admitting Unavailable GANESH HALE Attending Unavailable Unavailable Primary Care Provider Unavailcharles e PROVIDER, UNKNOWN Attending Unavailable PROVIDER, UNKNOWN Admitting Unavailable Eduardo Sharpe MD Primary Care Provider [phone] MIKALA HIGGINS Admitting Unavailable MIKALA HIGGINS Attending [...] Care Unavailable DERICK, DR YU Damon Consulting Unavaillegacy health amaury COLE, DR GRIMALDO Consulting Unavailable ZIEBSTEF, [...] Unavailable Eduardo Sharpe MD Primary Care Provider [phone] Bala Hartman Unavailable HOY, EDUARDO M Primary [...] Date of Onset Reaction(s) Facility (1 source) Yhnsqem-EKK-QlG Reductase Inhibitor Propensity to adverse reactions 0 Weakness [facility] (5 sources) HMG-CoA reductase inhibitor; Translations: [FKNRLEX-COO-BNN REDUCTASE INHIBITORS] Drug Allergy 8 Unknown [facility] (1 source) black walnut pollen extract Drug Allergy 8 [facility] (10 sources) HMG-CoA reductase inhibitor Drug Allergy 8 Unknown [facility] (2 sources) Simvastatin Drug Allergy [facility] Medications Current Medications Medication [...] 10, 2020 1:30am November 09, 2021 7:27pm [id number] 200 actuat albuterol 0.09 mg/actuat metered dose [...] (Bisacodyl)) 10 mg Suppository Discontinued 10 MG PA Daily September 10, 2020 1:30am September 19, [...] 20 mg/ml oral solution (1 source) Uncompetitive E-vmujkz-A-aspartate Receptor Antagonist, Sigma-1 Agonist Start: End: take [...] 2:05am September 10, 2020 2:21am lactobacillus acidophilus [id number] unt / pectin 10 mg oral capsule (1 source) Start: 09-10-2020 End: 09-19-2020 take 1 capsule by mouth four times daily Acidophilus-Pectin , [place]idan (Acidophilus Probiotic) 100 million cell-10 mg Capsule [...] Comment on above: Take 1 capsule by [facility] once daily. 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 Any recommendations? Please advise. Thanks. [facility] Ophthalmic OCT panelon 10-31 [facility] Right Eye Images reviewed and comparison [...] as well. Poor scan left eye (OS)> [facility] Radiology Study observation (narrative) [facility] Orders Onlyon 10-31-2023 Orders Only [id number] Wayne Barros 1945 F Date Provider Department Center 10/31/2023 895-ODETTE FERRARI CARD [facility] Family History Problem Relation Age of Onset Coronary artery disease Mother Coronary artery disease Father Coronary artery disease Sister Coronary artery disease Brother Family Status - Relation Status Age at Mother Father Sister Brother [facility] US Eye+Orbit - bilateralon 0 10-31-2023 Diagnosis: Cataract both eyes (OU) Testing Indication: Performed for preop measurements in the determination of an intraocular lens (IOL) for both eyes (OU) Test Reliability: Good quality both eyes (OU) Interpretation: Good measurements for intraocular lens (IOL) calculation purposes. Calculation made for both eyes (OU). [facility] Radiology Study observation (narrative) [facility] Office Visiton 10-16-2023 Follow-up visit [id number] Wayne Barros 1945 F Date Provider Department Center 10/16/2023 GISSELL WANG KASHIF [facility] Family History Problem Relation Age of Onset Coronary artery disease Mother Coronary artery disease Father Coronary artery disease Sister Coronary artery disease Brother Family Status - Relation Status Age at Mother Father Sister Brother Level of Service:53697 PA OFFICE/OUTPATIENT ESTABLISHED MOD MDM 30 MIN Normal [facility] CBC W Auto Differential pane l (Bld)on 08-19-2023 Basophils (Bld) [#/Vol] 0.06 10*3/uL Normal <0.11 [facility] Comment on above: Order Comment: Speci men Type: BLOOD SPECIMENOrdering Facility: [facility] Address: [address] [place] [address] Performed By: #### 5 7021-8 ####[facility] LABCLIA [id number] [place] [address] Basophils/100 WBC (Bld) 0.6 % Normal [facility] Comment on above: Order Comment: Speci men Type: BLOOD SPECIMENOrdering Facility: [facility] Address: [address] [place] [address] Performed By: #### 5 7021-8 ####[facility] LABCLIA [id number] [place] [address] Differential cell count method Nom (Bld) Auto Normal [facility] Comment on above: Order Comment: Speci men Type: BLOOD SPECIMENOrdering Facility: [facility] Address: [address] [place] [address] Performed By: #### 5 7021-8 ####[facility] LABCLIA [id number] [place] [address] Eosinophils (Bld) [#/Vol] 0.16 10*3/uL Normal <0.46 [facility] Comment on above: Order Comment: Speci men Type: BLOOD SPECIMENOrdering Facility: [facility] Address: [address] [place] [address] Performed By: #### 5 7021-8 ####[facility] LABCLIA [id number] [place] [address] Eosinophils/100 WBC (Bld) 1.6 % Normal [facility] Comment on above: Order Comment: Speci men Type: BLOOD SPECIMENOrdering Facility: [facility] Address: [address] [place] [address] Performed By: #### 5 7021-8 ####[facility] LABCLIA [id number] [place] [address] Erythrocyte distribution width (RBC) [Ratio] 12.4 % Normal 11.5-15.0 [facility] Comment on above: Order Comment: Speci men Type: BLOOD SPECIMENOrdering Facility: [facility] Address: [address] [place] [address] Performed By: #### 5 7021-8 ####[facility] LABCLIA [id number] [place] [address] Hematocrit (Bld) [Volume fraction] 39.6 % Normal 36.0-46.0 [facility] Comment on above: Order Comment: Speci men Type: BLOOD SPECIMENOrdering Facility: [facility] Address: [address] [place] [address] Performed By: #### 5 7021-8 ####[facility] LABCLIA [id number] [place] [address] Hemoglobin (Bld) [Mass/Vol] 13.0 g/dL Normal 11.5-15.5 [facility] Comment on above: Order Comment: Speci men Type: BLOOD SPECIMENOrdering Facility: [facility] Address: [address] [place] [address] Performed By: #### 5 7021-8 ####[facility] LABCLIA [id number] [place] [address] Immature granulocytes (Bld) [#/Vol] 0.03 10*3/uL Normal <0.10 [facility] Comment on above: Order Comment: Speci men Type: BLOOD SPECIMENOrdering Facility: [facility] Address: [address] [place] [address] Performed By: #### 5 7021-8 ####[facility] LABCLIA [id number] [place] [address] Immature granulocytes/100 WBC (Bld) 0.3 % Normal [facility] Comment on above: Order Comment: Speci men Type: BLOOD SPECIMENOrdering Facility: [facility] Address: [address] [place] [address] Performed By: #### 5 7021-8 ####[facility] LABCLIA [id number] [place] [address] Lymphocytes (Bld) [#/Vol] 1.62 10*3/uL Normal 1.00-4.00 [facility] Comment on above: Order Comment: Speci men Type: BLOOD SPECIMENOrdering Facility: [facility] Address: [address] [place] [address] Performed By: #### 5 7021-8 ####[facility] LABIA [id number] [place] [address] Lymphocytes/100 WBC (Bld) 16.2 % Normal [facility] Comment on above: Order Comment: Speci men Type: BLOOD SPECIMENOrdering Facility: [facility] Address: [address] [place] [address] Performed By: #### 5 7021-8 ####[facility] LABCLIA [id number] [place] [address] MCH (RBC) [Entitic mass] 30.9 pg Normal 26.0-34.0 [facility] Comment on above: Order Comment: Speci men Type: BLOOD SPECIMENOrdering Facility: [facility] Address: [address] [place] [address] Performed By: #### 5 7021-8 ####[facility] LABCLIA [id number] [place] [address] MCHC (RBC) [Mass/Vol] 32.8 g/dL Normal 30.5-36.0 [facility] Comment on above: Order Comment: Speci men Type: BLOOD SPECIMENOrdering Facility: [facility] Address: [address] [place] [address] Performed By: #### 5 7021-8 ####[facility] LABCLIA [id number] [place] [address] MCV (RBC) [Entitic vol] 94.1 fL Normal 80.0-100.0 [facility] Comment on above: Order Comment: Speci men Type: BLOOD SPECIMENOrdering Facility: [facility] Address: [address] [place] [address] Performed By: #### 5 7021-8 ####[facility] LABCLIA [id number] [place] [address] Monocytes (Bld) [#/Vol] 1.04 10*3/uL High <0.87 [facility] Comment on above: Order Comment: Speci men Type: BLOOD SPECIMENOrdering Facility: [facility] Address: [address] [place] [address] Performed By: #### 5 7021-8 ####[facility] LABCLIA [id number] [place] [address] Monocytes/100 WBC (Bld) 10.4 % Normal [facility] Comment on above: Order Comment: Speci men Type: BLOOD SPECIMENOrdering Facility: [facility] Address: [address] [place] [address] Performed By: #### 5 7021-8 ####[facility] LABCLIA [id number] [place] [address] Neutrophils (Bld) [#/Vol] 7.12 10*3/uL Normal 1.45-7.50 [facility] Comment on above: Order Comment: Speci men Type: BLOOD SPECIMENOrdering Facility: [facility] Address: [address] [place] [address] Performed By: #### 5 7021-8 ####[facility] LABCLIA [id number] [place] [address] Neutrophils/100 WBC (Bld) 70.9 % Normal [facility] Comment on above: Order Comment: Speci men Type: BLOOD SPECIMENOrdering Facility: [facility] Address: [address] [place] [address] Performed By: #### 5 7021-8 ####[facility] LABCLIA [id number] [place] [address] Nucleated RBC (Bld) [#/Vol] 10*3/uL Normal <0.01 [facility] Comment on above: Order Comment: Speci men Type: BLOOD SPECIMENOrdering Facility: [facility] Address: [address] [place] [address] Performed By: #### 5 7021-8 ####[facility] LABCLIA [id number] [place] [address] Nucleated RBC/100 WBC (Bld) [Ratio] 0.0 /100 WBC Normal [facility] Comment on above: Order Comment: Speci men Type: BLOOD SPECIMENOrdering Facility: [facility] Address: [address] [place] [address] Performed By: #### 5 7021-8 ####[facility] LABCLIA [id number] [place] [address] Platelet mean volume (Bld) [Entitic vol] 10.7 fL Normal 9.0-12.7 [facility] Comment on above: Order Comment: Speci men Type: BLOOD SPECIMENOrdering Facility: [facility] Address: [address] [place] [address] Performed By: #### 5 7021-8 ####[facility] LABCLIA [id number] [place] [address] Platelets (Bld) [#/Vol] 252 10*3/uL Normal 150-400 [facility] Comment on above: Order Comment: Speci men Type: BLOOD SPECIMENOrdering Facility: [facility] Address: [place] [address] Performed By: #### 5 7021-8 ####[facility] LABIA [id number] [place] [address] RBC (Bld) [#/Vol] 4.21 10*6/uL Normal 3.90-5.20 [facility] Comment on above: Order Comment: Speci men Type: BLOOD SPECIMENOrdering Facility: [facility] Address: [place] [address] Performed By: #### 5 7021-8 ####[facility] LABIA [id number] [place] [address] WBC (Bld) [#/Vol] 10.03 10*3/uL Normal 3.70-11.00 [facility] Comment on above: Order Comment: Speci men Type: BLOOD SPECIMENOrdering Facility: [facility] Address: [address] [place] [address] Performed By: #### 5 7021-8 ####[facility] LABIA [id number] [place] [address] CNOVSPon 08-19-2023 CNOVS Visit (SP) Office ([facility]) -- ANDREW BARROS ([id number]) 1945 F Date Time Provider Department 08/19/23 1:00 PM SANDEEP LENZ During your visit today, we recorded the following information about you: Temperature Pulse Respiration Blood pressure 97.7 degrees 67/minute 16/minute 148/65 Weight Height 61.8 kg 1.626 m Sandeep Lenz MD 08/20/2023 7:07 AM Signed Kathy nephrology NAME: Andrew Barros CLINIC NO.: [id number] DATE OF SERVICE: August 19, 2023 (Eduardo) [...] outer quadrant, invasive ductal carcinoma, ER postive, PA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 Mammograms at [facility] on 01/04/2021 Bi-Rads 2 benign. REVIEW OF [...] comfortably. N (more content not included)... [facility] ([facility] -- ANDREW BARROS ([id number]) 1945 F Date Time Provider Department 08/19/23 [...] As of Date: 08/19/2023 Noted Allergy Reaction [id number]-RJB-[id number] REDUCTASE INHIBIT*01/21/2018 16 - Unknown Comments: Other [...] Status:Closed by CLEMENTE SRIVASTAVA on 08/19/23 Normal [facility] Calcium.ionized [Moles/Vol]o n 08-19-2023 Calcium.ionized (Bld) [Mass/Vol] 1.20 mmol/L Normal 1.08-1.30 [facility] Comment on above: Order Comment: Speci men Type: BLOOD SPECIMENOrdering Facility: [facility] Address: [address] [place] [address] Performed By: #### 1 995-0 ####[facility] LABCLIA [id number] [address] [address] [place] Calcium.ionized adjusted to pH 7.4 (Bld) [Moles/Vol] 1.19 mmol/L Normal 1.08-1.30 [facility] Comment on above: Order Comment: Speci men Type: BLOOD SPECIMENOrdering Facility: [facility] Address: [address] [place] [address] Performed By: #### 1 995-0 ####[facility] LABCLIA [id number] [place] [address] [place] Comprehensive metabolic 2000 panelon 08-19-2023 Albumin [Mass/Vol] 4.4 g/dL Normal 3.9-4.9 [facility] Comment on above: Order Comment: Speci men Type: BLOOD SPECIMENOrdering Facility: [facility] Address: [address] [place] [address] Performed By: #### 2 4323-8 ####[facility] LABCLIA [id number] [place] [address] ALP [Catalytic activity/Vol] 88 U/L Normal 34-123 [facility] Comment on above: Order Comment: Speci men Type: BLOOD SPECIMENOrdering Facility: [facility] Address: [address] [place] [address] Performed By: #### 2 4323-8 ####[facility] LABCLIA [id number] [place] [address] ALT [Catalytic activity/Vol] 8 U/L Normal 7-38 [facility] Comment on above: Order Comment: Speci men Type: BLOOD SPECIMENOrdering Facility: [facility] Address: [address] [place] [address] Performed By: #### 2 4323-8 ####[facility] LABCLIA [id number] [place] [address] Anion gap [Moles/Vol] 11 mmol/L Normal 9-18 [facility] Comment on above: Order Comment: Speci men Type: BLOOD SPECIMENOrdering Facility: [facility] Address: [address] [place] [address] Performed By: #### 2 4323-8 ####[facility] LABCLIA [id number] [place] [address] AST [Catalytic activity/Vol] 13 U/L Normal 13-35 [facility] Comment on above: Order Comment: Speci men Type: BLOOD SPECIMENOrdering Facility: [facility] Address: [address] [place] [address] Performed By: #### 2 4323-8 ####[facility] LABCLIA [id number] [place] [address] Bilirubin [Mass/Vol] 0.3 mg/dL Normal 0.2-1.3 [facility] Comment on above: Order Comment: Speci men Type: BLOOD SPECIMENOrdering Facility: [facility] Address: [address] [place] [address] Performed By: #### 2 4323-8 ####[facility] LABCLIA [id number] [place] [address] Calcium [Mass/Vol] 9.6 mg/dL Normal 8.5-10.2 [facility] Comment on above: Order Comment: Speci men Type: BLOOD SPECIMENOrdering Facility: [facility] Address: [address] [place] [address] Performed By: #### 2 4323-8 ####[facility] LABCLIA [id number] [place] [address] Chloride [Moles/Vol] 98 mmol/L Normal 97-105 [facility] Comment on above: Order Comment: Speci men Type: BLOOD SPECIMENOrdering Facility: [facility] Address: [address] [id number] Performed By: #### 2 4323-8 ####[facility] LABCLIA [id number] [place] [address] CO2 [Moles/Vol] 30 mmol/L Normal 22-30 [facility] Comment on above: Order Comment: Speci men Type: BLOOD SPECIMENOrdering Facility: [facility] Address: [address] [place] [address] Performed By: #### 2 4323-8 ####[facility] LABCLIA [id number] [place] [address] Creatinine [Mass/Vol] 1.27 mg/dL High 0.58-0.96 [facility] Comment on above: Order Comment: Speci men Type: BLOOD SPECIMENOrdering Facility: [facility] Address: [address] [place] [address] Performed By: #### 2 4323-8 ####[facility] LABCLIA [id number] [place] [address] Creatinine and Glomerular filtration rate.predicted panel (S/P/Bld) 43 mL/min/1.73m??? Low >=60 [facility] Comment on above: Order Comment: Speci men Type: BLOOD SPECIMENOrdering Facility: [facility] Address: [address] [place] [address] Result Comment: Sugar mated Glomerular Filtration Rate [...] actual GFR. Performed By: #### 2 4323-8 ####[facility] LABCLIA [id number] [place] [address] Glucose [Mass/Vol] 94 mg/dL Normal 74-99 [facility] Comment on above: Order Comment: Speci men Type: BLOOD SPECIMENOrdering Facility: [facility] Address: [address] [id number] Result Comment: The [place] Diabetes Association (ADA) provides guidance for cutoff [...] Standards of Medical Care in Diabetes 2016, [place] Diabetes Association. Diabetes Care. 2016.39(Suppl 1). Performed By: #### 2 4323-8 ####[facility] LABCLIA [id number] [place] [address] Potassium [Moles/Vol] 3.7 mmol/L Normal 3.7-5.1 [facility] Comment on above: Order Comment: Speci men Type: BLOOD SPECIMENOrdering Facility: [facility] Address: [address] [place], [place] [address] Performed By: #### 2 4323-8 ####[facility] LABCLIA [id number] [place] [address] Protein [Mass/Vol] 7.3 g/dL Normal 6.3-8.0 [facility] Comment on above: Order Comment: Speci men Type: BLOOD SPECIMENOrdering Facility: [facility] Address: [address] [place] [address] Performed By: #### 2 4323-8 ####[facility] LABCLIA [id number] [place] [address] Sodium [Moles/Vol] 139 mmol/L Normal 136-144 [facility] Comment on above: Order Comment: Speci men Type: BLOOD SPECIMENOrdering Facility: [facility] Address: [address] [place] [address] Performed By: #### 2 4323-8 ####[facility] LABCLIA [id number] [place] [address] Urea nitrogen [Mass/Vol] 28 mg/dL High 7-21 [facility] Comment on above: Order Comment: Speci men Type: BLOOD SPECIMENOrdering Facility: [facility] Address: [address] [place] [address] Performed By: #### 2 4323-8 ####[facility] LABCLIA [id number] [place] [address] CBC W Auto Differential pane l (Bld)on 07-02-2023 Basophils (Bld) [#/Vol] 0.06 10*3/uL Normal <0.11 [facility] Comment on above: Order Comment: Speci men Type: BLOOD SPECIMENOrdering Facility: [facility] Address: [address] [place] [address] Performed By: #### 5 7021-8 ####[facility] LABCLIA [id number] [place] [address] Basophils/100 WBC (Bld) 0.6 % Normal [facility] Comment on above: Order Comment: Speci men Type: BLOOD SPECIMENOrdering Facility: [facility] Address: [address] [place] [address] Performed By: #### 5 7021-8 ####[facility] LABCLIA [id number] [place] [address] Differential cell count method Nom (Bld) Auto Normal [facility] Comment on above: Order Comment: Speci men Type: BLOOD SPECIMENOrdering Facility: [facility] Address: [address] [place] [address] Performed By: #### 5 7021-8 ####[facility] LABCLIA [id number] [place] [address] Eosinophils (Bld) [#/Vol] 0.14 10*3/uL Normal <0.46 [facility] Comment on above: Order Comment: Speci men Type: BLOOD SPECIMENOrdering Facility: [facility] Address: [address] [place] [address] Performed By: #### 5 7021-8 ####[facility] LABCLIA [id number] [place] [address] Eosinophils/100 WBC (Bld) 1.5 % Normal [facility] Comment on above: Order Comment: Speci men Type: BLOOD SPECIMENOrdering Facility: [facility] Address: [address] [place] [address] Performed By: #### 5 7021-8 ####[facility] LABCLIA [id number] [place] [address] Erythrocyte distribution width (RBC) [Ratio] 12.5 % Normal 11.5-15.0 [facility] Comment on above: Order Comment: Speci men Type: BLOOD SPECIMENOrdering Facility: [facility] Address: [address] [place] [address] Performed By: #### 5 7021-8 ####[facility] LABCLIA [id number] [place] [address] Hematocrit (Bld) [Volume fraction] 40.6 % Normal 36.0-46.0 [facility] Comment on above: Order Comment: Speci men Type: BLOOD SPECIMENOrdering Facility: [facility] Address: [address] [place] [address] Performed By: #### 5 7021-8 ####[facility] LABCLIA [id number] [place] [address] Hemoglobin (Bld) [Mass/Vol] 13.1 g/dL Normal 11.5-15.5 [facility] Comment on above: Order Comment: Speci men Type: BLOOD SPECIMENOrdering Facility: [facility] Address: [address] [place] [address] Performed By: #### 5 7021-8 ####[facility] LABCLIA [id number] [place] [address] Immature granulocytes (Bld) [#/Vol] 0.03 10*3/uL Normal <0.10 [facility] Comment on above: Order Comment: Speci men Type: BLOOD SPECIMENOrdering Facility: [facility] Address: [address] [place] [address] Performed By: #### 5 7021-8 ####[facility] LABCLIA [id number] [place] [address] Immature granulocytes/100 WBC (Bld) 0.3 % Normal [facility] Comment on above: Order Comment: Speci men Type: BLOOD SPECIMENOrdering Facility: [facility] Address: [address] [place] [address] Performed By: #### 5 7021-8 ####[facility] LABIA [id number] [place] [address] Lymphocytes (Bld) [#/Vol] 1.44 10*3/uL Normal 1.00-4.00 [facility] Comment on above: Order Comment: Speci men Type: BLOOD SPECIMENOrdering Facility: [facility] Address: [address] [place] [address] Performed By: #### 5 7021-8 ####[facility] LABCLIA [id number] [place] [address] Lymphocytes/100 WBC (Bld) 15.2 % Normal [facility] Comment on above: Order Comment: Speci men Type: BLOOD SPECIMENOrdering Facility: [facility] Address: [address] [place] [address] Performed By: #### 5 7021-8 ####[facility] LABIA [id number] [place] [address] MCH (RBC) [Entitic mass] 31.2 pg Normal 26.0-34.0 [facility] Comment on above: Order Comment: Speci men Type: BLOOD SPECIMENOrdering Facility: [facility] Address: [address] [place] [address] Performed By: #### 5 7021-8 ####[facility] LABCLIA [id number] [place] [address] MCHC (RBC) [Mass/Vol] 32.3 g/dL Normal 30.5-36.0 [facility] Comment on above: Order Comment: Speci men Type: BLOOD SPECIMENOrdering Facility: [facility] Address: [address] [place] [address] Performed By: #### 5 7021-8 ####[facility] LABCLIA [id number] [place] [address] MCV (RBC) [Entitic vol] 96.7 fL Normal 80.0-100.0 [facility] Comment on above: Order Comment: Speci men Type: BLOOD SPECIMENOrdering Facility: [facility] Address: [address] [place] [address] Performed By: #### 5 7021-8 ####[facility] LABCLIA [id number] [place] [address] Monocytes (Bld) [#/Vol] 0.82 10*3/uL Normal <0.87 [facility] Comment on above: Order Comment: Speci men Type: BLOOD SPECIMENOrdering Facility: [facility] Address: [address] [place] [address] Performed By: #### 5 7021-8 ####[facility] LABCLIA [id number] [place] [address] Monocytes/100 WBC (Bld) 8.7 % Normal [facility] Comment on above: Order Comment: Speci men Type: BLOOD SPECIMENOrdering Facility: [facility] Address: [address] [place] [address] Performed By: #### 5 7021-8 ####[facility] LABCLIA [id number] [place] [address] Neutrophils (Bld) [#/Vol] 6.97 10*3/uL Normal 1.45-7.50 [facility] Comment on above: Order Comment: Speci men Type: BLOOD SPECIMENOrdering Facility: [facility] Address: [address] [place] [address] Performed By: #### 5 7021-8 ####[facility] LABCLIA [id number] [place] [address] Neutrophils/100 WBC (Bld) 73.7 % Normal [facility] Comment on above: Order Comment: Speci men Type: BLOOD SPECIMENOrdering Facility: [facility] Address: [address] [place] [address] Performed By: #### 5 7021-8 ####[facility] LABCLIA [id number] [place] [address] Nucleated RBC (Bld) [#/Vol] 10*3/uL Normal <0.01 [facility] Comment on above: Order Comment: Speci men Type: BLOOD SPECIMENOrdering Facility: [facility] Address: [address] [place] [address] Performed By: #### 5 7021-8 ####[facility] LABCLIA [id number] [place] [address] Nucleated RBC/100 WBC (Bld) [Ratio] 0.0 /100 WBC Normal [facility] Comment on above: Order Comment: Speci men Type: BLOOD SPECIMENOrdering Facility: [facility] Address: [address] [place] [address] Performed By: #### 5 7021-8 ####[facility] LABCLIA [id number] [place] [address] Platelet mean volume (Bld) [Entitic vol] 11.0 fL Normal 9.0-12.7 [facility] Comment on above: Order Comment: Speci men Type: BLOOD SPECIMENOrdering Facility: [facility] Address: [address] [place] [address] Performed By: #### 5 7021-8 ####[facility] LABCLIA [id number] [place] [address] Platelets (Bld) [#/Vol] 238 10*3/uL Normal 150-400 [facility] Comment on above: Order Comment: Speci men Type: BLOOD SPECIMENOrdering Facility: [facility] Address: [address] [place] [address] Performed By: #### 5 7021-8 ####[facility] LABCLIA [id number] [place] [address] RBC (Bld) [#/Vol] 4.20 10*6/uL Normal 3.90-5.20 [facility] Comment on above: Order Comment: Speci men Type: BLOOD SPECIMENOrdering Facility: [facility] Address: [address] [place] [address] Performed By: #### 5 7021-8 ####[facility] LABCLIA [id number] [place] [address] WBC (Bld) [#/Vol] 9.46 10*3/uL Normal 3.70-11.00 [facility] Comment on above: Order Comment: Speci men Type: BLOOD SPECIMENOrdering Facility: [facility] Address: [address] [place] [address] Performed By: #### 5 7021-8 ####[facility] LABCLIA [id number] [place] [address] Calcium.ionized [Moles/Vol]o n 07-02-2023 Calcium.ionized (Bld) [Mass/Vol] 1.23 mmol/L Normal 1.08-1.30 [facility] Comment on above: Order Comment: Speci men Type: BLOOD SPECIMEN [facility] Address: [address] [place] [address] Performed By: #### 1 995-0 #### [facility] CLIA [id number] [address] [facility] [place] [id number] [address] [place] Calcium.ionized adjusted to pH 7.4 (Bld) [Moles/Vol] 1.20 mmol/L Normal 1.08-1.30 [facility] Comment on above: Order Comment: Speci men Type: BLOOD SPECIMEN [facility] Address: [address] [place] [address] Performed By: #### 1 995-0 #### [facility] CLIA [id number] [address] [facility] [address] [place], [place] [address] [facility] [place] Comprehensive metabolic 2000 panelon 07-02-2023 Albumin [Mass/Vol] 4.5 g/dL Normal 3.9-4.9 [facility] Comment on above: Order Comment: Speci men Type: BLOOD SPECIMENOrdering Facility: [facility] Address: [address] [place] [address] Performed By: #### 2 4323-8 ####[facility] LABCLIA [id number] [place] [address] ALP [Catalytic activity/Vol] 89 U/L Normal 34-123 [facility] Comment on above: Order Comment: Speci men Type: BLOOD SPECIMENOrdering Facility: [facility] Address: [address] [place] [address] Performed By: #### 2 4323-8 ####[facility] LABCLIA [id number] [place] [address] ALT [Catalytic activity/Vol] 10 U/L Normal 7-38 [facility] Comment on above: Order Comment: Speci men Type: BLOOD SPECIMENOrdering Facility: [facility] Address: [address] [place] [address] Performed By: #### 2 4323-8 ####[facility] LABCLIA [id number] [place] [address] Anion gap [Moles/Vol] 15 mmol/L Normal 9-18 [facility] Comment on above: Order Comment: Speci men Type: BLOOD SPECIMENOrdering Facility: [facility] Address: [address] [place] [address] Performed By: #### 2 4323-8 ####[facility] LABCLIA [id number] [place] [address] AST [Catalytic activity/Vol] 14 U/L Normal 13-35 [facility] Comment on above: Order Comment: Speci men Type: BLOOD SPECIMENOrdering Facility: [facility] Address: [address] [place] [address] Performed By: #### 2 4323-8 ####[facility] LABCLIA [id number] [place] [address] Bilirubin [Mass/Vol] 0.4 mg/dL Normal 0.2-1.3 [facility] Comment on above: Order Comment: Speci men Type: BLOOD SPECIMENOrdering Facility: [facility] Address: [address] [place] [address] Performed By: #### 2 4323-8 ####[facility] LABCLIA [id number] [place] [address] Calcium [Mass/Vol] 9.9 mg/dL Normal 8.5-10.2 [facility] Comment on above: Order Comment: Speci men Type: BLOOD SPECIMENOrdering Facility: [facility] Address: [address] [place] [address] Performed By: #### 2 4323-8 ####[facility] LABCLIA [id number] [place] [address] Chloride [Moles/Vol] 99 mmol/L Normal 97-105 [facility] Comment on above: Order Comment: Speci men Type: BLOOD SPECIMENOrdering Facility: [facility] Address: [address] [place] [address] Performed By: #### 2 4323-8 ####[facility] LABCLIA [id number] [place] [address] CO2 [Moles/Vol] 28 mmol/L Normal 22-30 [facility] Comment on above: Order Comment: Speci men Type: BLOOD SPECIMENOrdering Facility: [facility] Address: [address] [id number] Performed By: #### 2 4323-8 ####[facility] LABCLIA [id number] [place] [address] Creatinine [Mass/Vol] 1.31 mg/dL High 0.58-0.96 [facility] Comment on above: Order Comment: Speci men Type: BLOOD SPECIMENOrdering Facility: [facility] Address: [address] [place] [address] Performed By: #### 2 4323-8 ####[facility] LABCLIA [id number] [place] [address] Creatinine and Glomerular filtration rate.predicted panel (S/P/Bld) 42 mL/min/1.73m??? Low >=60 [facility] Comment on above: Order Comment: Speci men Type: BLOOD SPECIMENOrdering Facility: [facility] Address: [address] [place] [address] Result Comment: Sugar mated Glomerular Filtration Rate [...] actual GFR. Performed By: #### 2 4323-8 ####[facility] LABCLIA [id number] [place] [address] Glucose [Mass/Vol] 183 mg/dL High 74-99 [facility] Comment on above: Order Comment: Speci men Type: BLOOD SPECIMENOrdering Facility: [facility] Address: [address] [place] [address] Result Comment: The [place] Diabetes Association (ADA) provides guidance for cutoff [...] Standards of Medical Care in Diabetes 2016, [place] Diabetes [employer]. Diabetes Care. 2016.39(Suppl 1). Performed By: #### 2 4323-8 ####[facility] LABCLIA [id number] [place] [address] Potassium [Moles/Vol] 3.9 mmol/L Normal 3.7-5.1 [facility] Comment on above: Order Comment: Speci men Type: BLOOD SPECIMENOrdering Facility: [facility] Address: [address] [place] [address] Performed By: #### 2 4323-8 ####[facility] LABCLIA [id number] [place] [address] Protein [Mass/Vol] 7.2 g/dL Normal 6.3-8.0 [facility] Comment on above: Order Comment: Speci men Type: BLOOD SPECIMENOrdering Facility: [facility] Address: [address] [place] [address] Performed By: #### 2 4323-8 ####[facility] LABCLIA [id number] [place] [address] Sodium [Moles/Vol] 142 mmol/L Normal 136-144 [facility] Comment on above: Order Comment: Speci men Type: BLOOD SPECIMENOrdering Facility: [facility] Address: [address] [place] [address] Performed By: #### 2 4323-8 ####[facility] LABCLIA [id number] [place] [address] Urea nitrogen [Mass/Vol] 29 mg/dL High 7-21 [facility] Comment on above: Order Comment: Speci men Type: BLOOD SPECIMENOrdering Facility: [facility] Address: [address] [place] [address] Performed By: #### 2 4323-8 ####[facility] LABCLIA [id number] [place] [address] CBC W Auto Differential pane l (Bld)on 05-21-2023 Basophils (Bld) [#/Vol] 0.07 10*3/uL <0.11 k/uL [facility] Basophils/100 WBC (Bld) 0.6 % [facility] Differential cell count method Nom (Bld) Auto [facility] Eosinophils (Bld) [#/Vol] 0.17 10*3/uL <0.46 k/uL [facility] Eosinophils/100 WBC (Bld) 1.6 % [facility] Erythrocyte distribution width (RBC) [Ratio] 12.8 % 11.5 - 15.0 % [facility] Hematocrit (Bld) [Volume fraction] 38.7 % 36.0 - 46.0 % [facility] Hemoglobin (Bld) [Mass/Vol] 13.0 g/dL 11.5 - 15.5 g/dL [facility] Immature granulocytes (Bld) [#/Vol] 0.04 10*3/uL <0.10 k/uL [facility] Immature granulocytes/100 WBC (Bld) 0.4 % [facility] Lymphocytes (Bld) [#/Vol] 1.74 10*3/uL 1.00 - 4.00 k/uL [facility] Lymphocytes/100 WBC (Bld) 16.0 % [facility] MCH (RBC) [Entitic mass] 31.7 pg 26.0 - 34.0 pg [facility] MCHC (RBC) [Mass/Vol] 33.6 g/dL 30.5 - 36.0 g/dL [facility] MCV (RBC) [Entitic vol] 94.4 fL 80.0 - 100.0 fL [facility] Monocytes (Bld) [#/Vol] 0.94 10*3/uL High <0.87 k/uL [facility] Monocytes/100 WBC (Bld) 8.6 % [facility] Neutrophils (Bld) [#/Vol] 7.94 10*3/uL High 1.45 - 7.50 k/uL [facility] Neutrophils/100 WBC (Bld) 72.8 % [facility] Nucleated RBC (Bld) [#/Vol] <0.01 k/uL [facility] Nucleated RBC/100 WBC (Bld) [Ratio] 0.0 /100 WBC [facility] Platelet mean volume (Bld) [Entitic vol] 12.1 fL 9.0 - 12.7 fL [facility] Platelets (Bld) [#/Vol] 293 10*3/uL 150 - 400 k/uL [facility] RBC (Bld) [#/Vol] 4.10 10*6/uL 3.90 - 5.2 0 m/uL [facility] WBC (Bld) [#/Vol] 10.90 10*3/uL 3.70 - 11.00 k/uL [facility] CNPNon 05-21-2023 CNPN Telephone (HEMAS[facility]) -- ANDREW BARROS ([id number]) 1945 F Date Time Provider Department 05/21/23 [...] As of Date: 05/21/2023 Noted Allergy Reaction RCKHNWL-LIO-OAM REDUCTASE INHIBIT*01/21/2018 16 - Unknown Comments: Other [...] Status:Closed by CLEMENTE SRIVASTAVA on 05/21/23 Normal [facility] metabolic 2000 panelon 05-21-2023 Albumin [Mass/Vol] 4.6 g/dL 3.9 - 4.9 g/dL [facility] ALP [Catalytic activity/Vol] 96 U/L 34 - 123 U/L [facility] ALT [Catalytic activity/Vol] 13 U/L 7 - 38 U/L [facility] Anion gap [Moles/Vol] 13 mmol/L 9 - 18 mmol/L [facility] AST [Catalytic activity/Vol] 18 U/L 13 - 35 U/L [facility] Bilirubin [Mass/Vol] 0.3 mg/dL 0.2 - 1 .3 mg/dL [facility] Calcium [Mass/Vol] 10.0 mg/dL 8.5 - 10. 2 mg/dL [facility] Chloride [Moles/Vol] 101 mmol/L 97 - 10 5 mmol/L [facility] CO2 [Moles/Vol] 26 mmol/L 22 - 30 mmol/L [facility] Creatinine [Mass/Vol] 1.32 mg/dL High 0.58 - 0.96 mg/dL [facility] Estimated Glomerular Filtration Rate 41 mL/min/1.73m Low >=60 mL/min/1.73 m [facility] Glucose [Mass/Vol] 119 mg/dL High 74 - 99 mg/dL [facility] Potassium [Moles/Vol] 4.1 mmol/L 3.7 - 5.1 mmol/L [facility] Protein [Mass/Vol] 7.6 g/dL 6.3 - 8.0 g/dL [facility] Sodium [Moles/Vol] 140 mmol/L 136 - 144 mmol/L [facility] Urea nitrogen [Mass/Vol] 32 mg/dL High 7 - 21 mg/dL [facility] CBC W Auto Differential pane l (Bld)on 05-20-2023 Basophils (Bld) [#/Vol] 0.07 10*3/uL Normal <0.11 [facility] Comment on above: Order Comment: Speci men Type: BLOOD SPECIMENOrdering Facility: [facility] Address: [address] [place] [address] Performed By: #### 5 7021-8 ####[facility] LABCLIA [id number] [place] [address] Basophils/100 WBC (Bld) 0.6 % Normal [facility] Comment on above: Order Comment: Speci men Type: BLOOD SPECIMENOrdering Facility: [facility] Address: [address] [address] Performed By: #### 5 7021-8 ####[facility] LABCLIA [id number] [place] [address] Differential cell count method Nom (Bld) Auto Normal [facility] Comment on above: Order Comment: Speci men Type: BLOOD SPECIMENOrdering Facility: [facility] Address: [address] [place] [address] Performed By: #### 5 7021-8 ####[facility] LABCLIA [id number] [place] [address] Eosinophils (Bld) [#/Vol] 0.17 10*3/uL Normal <0.46 [facility] Comment on above: Order Comment: Speci men Type: BLOOD SPECIMENOrdering Facility: [facility] Address: [address] [place] [address] Performed By: #### 5 7021-8 ####[facility] LABCLIA [id number] [place] [address] Eosinophils/100 WBC (Bld) 1.6 % Normal [facility] Comment on above: Order Comment: Speci men Type: BLOOD SPECIMENOrdering Facility: [facility] Address: [address] [place] [address] Performed By: #### 5 7021-8 ####[facility] LABCLIA [id number] [place] [address] Erythrocyte distribution width (RBC) [Ratio] 12.8 % Normal 11.5-15.0 [facility] Comment on above: Order Comment: Speci men Type: BLOOD SPECIMENOrdering Facility: [facility] Address: [address] [place] [address] Performed By: #### 5 7021-8 ####[facility] LABCLIA [id number] [place] [address] Hematocrit (Bld) [Volume fraction] 38.7 % Normal 36.0-46.0 [facility] Comment on above: Order Comment: Speci men Type: BLOOD SPECIMENOrdering Facility: [facility] Address: [address] [place] [address] Performed By: #### 5 7021-8 ####[facility] LABCLIA [id number] [place] [address] Hemoglobin (Bld) [Mass/Vol] 13.0 g/dL Normal 11.5-15.5 [facility] Comment on above: Order Comment: Speci men Type: BLOOD SPECIMENOrdering Facility: [facility] Address: [address] [place] [address] Performed By: #### 5 7021-8 ####[facility] LABIA [id number] [place] [address] Immature granulocytes (Bld) [#/Vol] 0.04 10*3/uL Normal <0.10 [facility] Comment on above: Order Comment: Speci men Type: BLOOD SPECIMENOrdering Facility: [facility] Address: [address] [place] [address] Performed By: #### 5 7021-8 ####[facility] LABIA [id number] [place] [address] Immature granulocytes/100 WBC (Bld) 0.4 % Normal [facility] Comment on above: Order Comment: Speci men Type: BLOOD SPECIMENOrdering Facility: [facility] Address: [address] [place] [address] Performed By: #### 5 7021-8 ####[facility] LABCLIA [id number] [place] [address] Lymphocytes (Bld) [#/Vol] 1.74 10*3/uL Normal 1.00-4.00 [facility] Comment on above: Order Comment: Speci men Type: BLOOD SPECIMENOrdering Facility: [facility] Address: [address] [place] [address] Performed By: #### 5 7021-8 ####[facility] LABCLIA [id number] [place] [address] Lymphocytes/100 WBC (Bld) 16.0 % Normal [facility] Comment on above: Order Comment: Speci men Type: BLOOD SPECIMENOrdering Facility: [facility] Address: [address] [place] [address] Performed By: #### 5 7021-8 ####[facility] LABCLIA [id number] [place] [address] MCH (RBC) [Entitic mass] 31.7 pg Normal 26.0-34.0 [facility] Comment on above: Order Comment: Speci men Type: BLOOD SPECIMENOrdering Facility: [facility] Address: [address] [place] [address] Performed By: #### 5 7021-8 ####[facility] LABIA [id number] [place] [address] MCHC (RBC) [Mass/Vol] 33.6 g/dL Normal 30.5-36.0 [facility] Comment on above: Order Comment: Speci men Type: BLOOD SPECIMENOrdering Facility: [facility] Address: [address] [place] [address] Performed By: #### 5 7021-8 ####[facility] LABIA [id number] [place] [address] MCV (RBC) [Entitic vol] 94.4 fL Normal 80.0-100.0 [facility] Comment on above: Order Comment: Speci men Type: BLOOD SPECIMENOrdering Facility: [facility] Address: [address] [place] [address] Performed By: #### 5 7021-8 ####[facility] LABIA [id number] [place] [address] Monocytes (Bld) [#/Vol] 0.94 10*3/uL High <0.87 [facility] Comment on above: Order Comment: Speci men Type: BLOOD SPECIMENOrdering Facility: [facility] Address: [address] [address] Performed By: #### 5 7021-8 ####[facility] LABCLIA [id number] [place] [address] Monocytes/100 WBC (Bld) 8.6 % Normal [facility] Comment on above: Order Comment: Speci men Type: BLOOD SPECIMENOrdering Facility: [facility] Address: [address] [address] Performed By: #### 5 7021-8 ####[facility] LABCLIA [id number] [place] [address] Neutrophils (Bld) [#/Vol] 7.94 10*3/uL High 1.45-7.50 [facility] Comment on above: Order Comment: Speci men Type: BLOOD SPECIMENOrdering Facility: [facility] Address: [address] [address] Performed By: #### 5 7021-8 ####[facility] LABCLIA [id number] [place] [address] Neutrophils/100 WBC (Bld) 72.8 % Normal [facility] Comment on above: Order Comment: Speci men Type: BLOOD SPECIMENOrdering Facility: [facility] Address: [address] [address] Performed By: #### 5 7021-8 ####[facility] LABCLIA [id number] [place] [address] Nucleated RBC (Bld) [#/Vol] 10*3/uL Normal <0.01 [facility] Comment on above: Order Comment: Speci men Type: BLOOD SPECIMENOrdering Facility: [facility] Address: [address] [place] [address] Performed By: #### 5 7021-8 ####[facility] LABCLIA [id number] [place] [address] Nucleated RBC/100 WBC (Bld) [Ratio] 0.0 /100 WBC Normal [facility] Comment on above: Order Comment: Speci men Type: BLOOD SPECIMENOrdering Facility: [facility] Address: [address] [place] [address] Performed By: #### 5 7021-8 ####[facility] LABCLIA [id number] [place] [address] Platelet mean volume (Bld) [Entitic vol] 12.1 fL Normal 9.0-12.7 [facility] Comment on above: Order Comment: Speci men Type: BLOOD SPECIMENOrdering Facility: [facility] Address: [address] [place] [address] Performed By: #### 5 7021-8 ####[facility] LABIA [id number] [place] [address] Platelets (Bld) [#/Vol] 293 10*3/uL Normal 150-400 [facility] Comment on above: Order Comment: Speci men Type: BLOOD SPECIMENOrdering Facility: [facility] Address: [address] [place] [address] Performed By: #### 5 7021-8 ####[facility] LABCLIA [id number] [place] [address] RBC (Bld) [#/Vol] 4.10 10*6/uL Normal 3.90-5.20 [facility] Comment on above: Order Comment: Speci men Type: BLOOD SPECIMENOrdering Facility: [facility] Address: [address] [place] [address] Performed By: #### 5 7021-8 ####[facility] LABIA [id number] [place] [address] WBC (Bld) [#/Vol] 10.90 10*3/uL Normal 3.70-11.00 [facility] Comment on above: Order Comment: Speci men Type: BLOOD SPECIMENOrdering Facility: [facility] Address: [place] [address] Performed By: #### 5 7021-8 ####[facility] LABIA [id number] [place] [address] CNOVSPon 05-20-2023 CNOVSP Visit (SP) Office ( [facility]) -- ANDREW BARROS ([id number]) 1945 F Date Time Provider Department 05/20/23 3:00 PM SANDEEP LENZ During your visit today, we recorded the following information about you: Temperature Pulse Respiration Blood pressure 97.8 degrees 68/minute 16/minute 168/72 Weight Height 58.9 kg 1.626 m Sandeep Lenz MD 05/30/2023 5:58 AM Signed Kathy nephrology NAME: Rosa Barrosence CLINIC NO.: [id number] DATE OF SERVICE: May 20, 2023 (Eduardo) [...] outer quadrant, invasive ductal carcinoma, ER postive, PA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 Mammograms at [facility] on 01/04/2021 Bi-Rads 2 benign. REVIEW OF [...] wounds or petechiae. ALLERGIES: ALLERGIES Allergen Reactions Hrqnwei-Gnu-Uql Red* Unknown Other reaction(s): AOF MEDICATIONS: anastrozole [...] Take 500 (more content not included)... Normal [facility] -- ANDREW BARROS ([id number]) 1945 F Date Time Provider Department 05/20/23 SANDEEP LENZ [facility] During your visit today, we recorded the following information about you: Samina Anderson 05/20/2023 4:06 PM Signed Refer to nephrology for hypercalcemia and kidney failure Lisa/Yan: Can you please refer patient and follow up? Thanks! Jennifer Christensen 05/22/2023 8:46 AM Signed Lisa: Information ready for you. [facility] 7[facility]49 AM Signed Records faxed to Nephrology. Jennifer Aviles 06/05/2023 10:00 AM Signed Called spoke with Deepika at Nephrology office. She states she has not received this referral and has asked us to please refax it. LISA: Please refax this referral to Nephrology office. Thank You. [facility] 06/05/2023 10:36 AM Signed Records re-faxed [...] As of Date: 05/20/2023 Noted Allergy Reaction [id number]-ILR REDUCTASE INHIBIT*01/21/2018 16 - Unknown Comments: Other reaction(s): AOF Date Reviewed: 05/20/2023 Reviewed by: Arabella Cotter MA - Fully Assessed Reason for Visit: Referral Information [0096] Cmt: Nephrology Prescriptions as of 06/10/2023 - [...] Status:Closed by SAMINA ANDERSON on 06/10/23 Normal [facility] Calcium.ionized [Moles/Vol]o n 05-20-2023 Calcium.ionized (Bld) [Mass/Vol] 1.23 mmol/L 1.08 - 1.30 mmol/L [facility] Calcium.ionized adjusted to pH 7.4 (Bld) [Moles/Vol] 1.20 mmol/L 1.08 - 1.30 mmol/L [facility] Calcium.ionized (Bld) [Mass/Vol] 1.23 mmol/L Normal 1.08-1.30 [facility] Comment on above: Order Comment: Speci men Type: BLOOD SPECIMENOrdering Facility: [facility] Address: [address] [place] [address] [place] [address] Performed By: #### 1 995-0 ####[facility] LABCLIA [id number] [address] OF [facility] Calcium.ionized adjusted to pH 7.4 (Bld) [Moles/Vol] 1.20 mmol/L Normal 1.08-1.30 [facility] Comment on above: Order Comment: Speci men Type: BLOOD SPECIMENOrdering Facility: [facility] Address: [address] [address] Performed By: #### 1 995-0 ####[facility] LABCLIA [id number] [address] OF [place] Comprehensive metabolic 2000 panelon 05-20-2023 Albumin [Mass/Vol] 4.6 g/dL Normal 3.9-4.9 [facility] Comment on above: Order Comment: Speci men Type: BLOOD SPECIMENOrdering Facility: [facility] Address: [address] [address] Performed By: #### 2 4323-8 ####[facility] LABCLIA [id number] [place] [address] ALP [Catalytic activity/Vol] 96 U/L Normal 34-123 [facility] Comment on above: Order Comment: Speci men Type: BLOOD SPECIMENOrdering Facility: [facility] Address: [address] Performed By: #### 2 4323-8 ####[facility] LABCLIA [id number] [place] [address] ALT [Catalytic activity/Vol] 13 U/L Normal 7-38 [facility] Comment on above: Order Comment: Speci men Type: BLOOD SPECIMENOrdering Facility: [facility] Address: [address] Performed By: #### 2 4323-8 ####[facility] LABCLIA [id number] [place] [address] Anion gap [Moles/Vol] 13 mmol/L Normal 9-18 [facility] Comment on above: Order Comment: Speci men Type: BLOOD SPECIMENOrdering Facility: [facility] Address: [address] [place] [address] Performed By: #### 2 4323-8 ####[facility] LABCLIA [id number] [place] [address] AST [Catalytic activity/Vol] 18 U/L Normal 13-35 [facility] Comment on above: Order Comment: Speci men Type: BLOOD SPECIMENOrdering Facility: [facility] Address: [address] [place] [address] Performed By: #### 2 4323-8 ####[facility] LABCLIA [id number] [place] [address] Bilirubin [Mass/Vol] 0.3 mg/dL Normal 0.2-1.3 [facility] Comment on above: Order Comment: Speci men Type: BLOOD SPECIMENOrdering Facility: [facility] Address: [address] [place] [address] Performed By: #### 2 4323-8 ####[facility] LABCLIA [id number] [place] [address] Calcium [Mass/Vol] 10.0 mg/dL Normal 8.5-10.2 [facility] Comment on above: Order Comment: Speci men Type: BLOOD SPECIMENOrdering Facility: [facility] Address: [address] [address] Performed By: #### 2 4323-8 ####[facility] LABCLIA [id number] [place] [address] Chloride [Moles/Vol] 101 mmol/L Normal 97-105 [facility] Comment on above: Order Comment: Speci men Type: BLOOD SPECIMENOrdering Facility: [facility] Address: [address] [place] [address] Performed By: #### 2 4323-8 ####[facility] LABCLIA [id number] [place] [address] CO2 [Moles/Vol] 26 mmol/L Normal 22-30 [facility] Comment on above: Order Comment: Speci men Type: BLOOD SPECIMENOrdering Facility: [facility] Address: [address] [place] [address] Performed By: #### 2 4323-8 ####[facility] LABCLIA [id number] [place] [address] Creatinine [Mass/Vol] 1.32 mg/dL High 0.58-0.96 [facility] Comment on above: Order Comment: Speci men Type: BLOOD SPECIMENOrdering Facility: [facility] Address: [address] [place] [address] Performed By: #### 2 4323-8 ####[facility] LABIA [id number] [place] [address] Creatinine and Glomerular filtration rate.predicted panel (S/P/Bld) 41 mL/min/1.73m??? Low >=60 [facility] Comment on above: Order Comment: Speci men Type: BLOOD SPECIMENOrdering Facility: [facility] Address: [address] [place] [address] Result Comment: Sugar mated Glomerular Filtration Rate [...] actual GFR. Performed By: #### 2 4323-8 ####[facility] LABCLIA [id number] [place] [address] Glucose [Mass/Vol] 119 mg/dL High 74-99 [facility] Comment on above: Order Comment: Speci men Type: BLOOD SPECIMENOrdering Facility: [facility] Address: [address] [address] Result Comment: The [place] Diabetes Association (ADA) provides guidance for cutoff [...] Standards of Medical Care in Diabetes 2016, [place] Diabetes Association. Diabetes Care. 2016.39(Suppl 1). Performed By: #### 2 4323-8 ####[facility] LABCLIA [id number] [place] [address] Potassium [Moles/Vol] 4.1 mmol/L Normal 3.7-5.1 [facility] Comment on above: Order Comment: Speci men Type: BLOOD SPECIMENOrdering Facility: [facility] Address: [address] [address] Performed By: #### 2 4323-8 ####[facility] LABCLIA [id number] [place] [address] Protein [Mass/Vol] 7.6 g/dL Normal 6.3-8.0 [facility] Comment on above: Order Comment: Speci men Type: BLOOD SPECIMENOrdering Facility: [facility] Address: [address] [address] Performed By: #### 2 4323-8 ####[facility] LABCLIA [id number] [place] [address] Sodium [Moles/Vol] 140 mmol/L Normal 136-144 [facility] Comment on above: Order Comment: Speci men Type: BLOOD SPECIMENOrdering Facility: [facility] Address: [address] [address] Performed By: #### 2 4323-8 ####[facility] LABCLIA [id number] [place] [address] Urea nitrogen [Mass/Vol] 32 mg/dL High 7-21 [facility] Comment on above: Order Comment: Speci men Type: BLOOD SPECIMENOrdering Facility: [facility] Address: [address] [place] [address] [place] [address] Performed By: #### 2 4323-8 ####[facility] LABCLIA [id number] [place] [address] CNSWon 05-09-2023 CNSW Social Work (HEMAS[facility]) -- ANDREW BARROS ([id number]) 1945 F Date Time Provider Department 05/09/23 ALEIDA VARGAS During your visit today, we recorded the following information about you: Aleida Vargas LSW 05/09/2023 11:00 AM Signed Patient appears on the [facility] First Time Treatment List for a non-oncology treatment. No psychosocial assessment is indicated. DENIA Gupta-Pritesh Allergies As of Date: 05/09/2023 Noted Allergy Reaction [id number]-YBN-BEY REDUCTASE INHIBIT*01/21/2018 16 - Unknown Comments: Other [...] Status:Closed by ALEIDA VARGAS on 05/09/23 Normal [facility] CA 15-3 BLDon 05-01-2023 Cancer Ag 15-3 Qn 9.9 U/mL <26.0 U/mL [facility] CA 27.29 BLOODon 05-01-2023 Cancer Ag 27-29 Qn 12.5 [arb'U]/mL <38.6 U/mL [facility] CBC W Auto Differential pane l (Bld)on 05-01-2023 Basophils (Bld) [#/Vol] 0.06 10*3/uL <0.11 k/uL [facility] Basophils/100 WBC (Bld) 0.6 % [facility] Differential cell count method Nom (Bld) Auto [facility] Eosinophils (Bld) [#/Vol] 0.18 10*3/uL <0.46 k/uL [facility] Eosinophils/100 WBC (Bld) 1.9 % [facility] Erythrocyte distribution width (RBC) [Ratio] 12.7 % 11.5 - 15.0 % [facility] Hematocrit (Bld) [Volume fraction] 36.4 % 36.0 - 46.0 % [facility] Hemoglobin (Bld) [Mass/Vol] 12.2 g/dL 11.5 - 15.5 g/dL [facility] Immature granulocytes (Bld) [#/Vol] 0.03 10*3/uL <0.10 k/uL [facility] Immature granulocytes/100 WBC (Bld) 0.3 % [facility] Lymphocytes (Bld) [#/Vol] 1.62 10*3/uL 1.00 - 4.00 k/uL [facility] Lymphocytes/100 WBC (Bld) 17.3 % [facility] MCH (RBC) [Entitic mass] 32.0 pg 26.0 - 34.0 pg [facility] MCHC (RBC) [Mass/Vol] 33.5 g/dL 30.5 - 36.0 g/dL [facility] MCV (RBC) [Entitic vol] 95.5 fL 80.0 - 100.0 fL [facility] Monocytes (Bld) [#/Vol] 0.99 10*3/uL High <0.87 k/uL [facility] Monocytes/100 WBC (Bld) 10.6 % [facility] Neutrophils (Bld) [#/Vol] 6.50 10*3/uL 1.45 - 7.50 k/uL [facility] Neutrophils/100 WBC (Bld) 69.3 % [facility] Nucleated RBC (Bld) [#/Vol] <0.01 k/uL [facility] Nucleated RBC/100 WBC (Bld) [Ratio] 0.0 /100 WBC [facility] Platelet mean volume (Bld) [Entitic vol] 11.9 fL 9.0 - 12.7 fL [facility] Platelets (Bld) [#/Vol] 252 10*3/uL 150 - 400 k/uL [facility] RBC (Bld) [#/Vol] 3.81 10*6/uL Low 3.90 - 5.2 0 m/uL [facility] WBC (Bld) [#/Vol] 9.38 10*3/uL 3.70 - 11.00 k/uL [facility] Comprehensive metabolic 2000 panelon 05-01-2023 Albumin [Mass/Vol] 4.3 g/dL 3.9 - 4.9 g/dL [facility] ALP [Catalytic activity/Vol] 93 U/L 34 - 123 U/L [facility] ALT [Catalytic activity/Vol] 14 U/L 7 - 38 U/L [facility] Anion gap [Moles/Vol] 14 mmol/L 9 - 18 mmol/L [facility] AST [Catalytic activity/Vol] 18 U/L 13 - 35 U/L [facility] Bilirubin [Mass/Vol] 0.3 mg/dL 0.2 - 1 .3 mg/dL [facility] Calcium [Mass/Vol] 10.6 mg/dL High 8.5 - 10. 2 mg/dL [facility] Chloride [Moles/Vol] 98 mmol/L 97 - 10 5 mmol/L [facility] CO2 [Moles/Vol] 26 mmol/L 22 - 30 mmol/L [facility] Creatinine [Mass/Vol] 1.38 mg/dL High 0.58 - 0.96 mg/dL [facility] Estimated Glomerular Filtration Rate 39 mL/min/1.73m Low >=60 mL/min/1.73 m [facility] Glucose [Mass/Vol] 207 mg/dL High 74 - 99 mg/dL [facility] Potassium [Moles/Vol] 3.7 mmol/L 3.7 - 5.1 mmol/L [facility] Protein [Mass/Vol] 6.9 g/dL 6.3 - 8.0 g/dL [facility] Sodium [Moles/Vol] 138 mmol/L 136 - 144 mmol/L [facility] Urea nitrogen [Mass/Vol] 39 mg/dL High 7 - 21 mg/dL [facility] CBC W Auto Differential pane l (Bld)on 04-30-2023 Basophils (Bld) [#/Vol] 0.06 10*3/uL Normal <0.11 [facility] Comment on above: Order Comment: Speci men Type: BLOOD SPECIMENOrdering Facility: [facility] Address: [address] [address] Performed By: #### 5 7021-8 ####[facility] LABCLIA [id number] [place] [address] Basophils/100 WBC (Bld) 0.6 % Normal [facility] Comment on above: Order Comment: Speci men Type: BLOOD SPECIMENOrdering Facility: [facility] Address: [address] [place] [address] Performed By: #### 5 7021-8 ####[facility] LABCLIA [id number] [place] [address] Differential cell count method Nom (Bld) Auto Normal [facility] Comment on above: Order Comment: Speci men Type: BLOOD SPECIMENOrdering Facility: [facility] Address: [address] [place] [address] Performed By: #### 5 7021-8 ####[facility] LABCLIA [id number] [place] [address] Eosinophils (Bld) [#/Vol] 0.18 10*3/uL Normal <0.46 [facility] Comment on above: Order Comment: Speci men Type: BLOOD SPECIMENOrdering Facility: [facility] Address: [address] [place] [address] Performed By: #### 5 7021-8 ####[facility] LABCLIA [id number] [place] [address] Eosinophils/100 WBC (Bld) 1.9 % Normal [facility] Comment on above: Order Comment: Speci men Type: BLOOD SPECIMENOrdering Facility: [facility] Address: [address] [place] [address] Performed By: #### 5 7021-8 ####[facility] LABCLIA [id number] [place] [address] Erythrocyte distribution width (RBC) [Ratio] 12.7 % Normal 11.5-15.0 [facility] Comment on above: Order Comment: Speci men Type: BLOOD SPECIMENOrdering Facility: [facility] Address: [address] [place] [address] Performed By: #### 5 7021-8 ####[facility] LABCLIA [id number] [place] [address] Hematocrit (Bld) [Volume fraction] 36.4 % Normal 36.0-46.0 [facility] Comment on above: Order Comment: Speci men Type: BLOOD SPECIMENOrdering Facility: [facility] Address: [address] [place] [address] Performed By: #### 5 7021-8 ####[facility] LABCLIA [id number] [place] [address] Hemoglobin (Bld) [Mass/Vol] 12.2 g/dL Normal 11.5-15.5 [facility] Comment on above: Order Comment: Speci men Type: BLOOD SPECIMENOrdering Facility: [facility] Address: [address] [place] [address] Performed By: #### 5 7021-8 ####[facility] LABCLIA [id number] [place] [address] Immature granulocytes (Bld) [#/Vol] 0.03 10*3/uL Normal <0.10 [facility] Comment on above: Order Comment: Speci men Type: BLOOD SPECIMENOrdering Facility: [facility] Address: [address] [place] [address] Performed By: #### 5 7021-8 ####[facility] LABCLIA [id number] [place] [address] Immature granulocytes/100 WBC (Bld) 0.3 % Normal [facility] Comment on above: Order Comment: Speci men Type: BLOOD SPECIMENOrdering Facility: [facility] Address: [address] [place] [address] Performed By: #### 5 7021-8 ####[facility] LABCLIA [id number] [place] [address] Lymphocytes (Bld) [#/Vol] 1.62 10*3/uL Normal 1.00-4.00 [facility] Comment on above: Order Comment: Speci men Type: BLOOD SPECIMENOrdering Facility: [facility] Address: [address] [place] [address] Performed By: #### 5 7021-8 ####[facility] LABCLIA [id number] [place] [address] Lymphocytes/100 WBC (Bld) 17.3 % Normal [facility] Comment on above: Order Comment: Speci men Type: BLOOD SPECIMENOrdering Facility: [facility] Address: [address] [place] [address] Performed By: #### 5 7021-8 ####[facility] LABIA [id number] [place] [address] MCH (RBC) [Entitic mass] 32.0 pg Normal 26.0-34.0 [facility] Comment on above: Order Comment: Speci men Type: BLOOD SPECIMENOrdering Facility: [facility] Address: [address] [place] [address] Performed By: #### 5 7021-8 ####[facility] LABCLIA [id number] [place] [address] MCHC (RBC) [Mass/Vol] 33.5 g/dL Normal 30.5-36.0 [facility] Comment on above: Order Comment: Speci men Type: BLOOD SPECIMENOrdering Facility: [facility] Address: [address] [place] [address] Performed By: #### 5 7021-8 ####[facility] LABIA [id number] [place] [address] MCV (RBC) [Entitic vol] 95.5 fL Normal 80.0-100.0 [facility] Comment on above: Order Comment: Speci men Type: BLOOD SPECIMENOrdering Facility: [facility] Address: [address] [address] Performed By: #### 5 7021-8 ####[facility] LABCLIA [id number] [place] [address] Monocytes (Bld) [#/Vol] 0.99 10*3/uL High <0.87 [facility] Comment on above: Order Comment: Speci men Type: BLOOD SPECIMENOrdering Facility: [facility] Address: [address] [place] [address] Performed By: #### 5 7021-8 ####[facility] LABCLIA [id number] [place] [address] Monocytes/100 WBC (Bld) 10.6 % Normal [facility] Comment on above: Order Comment: Speci men Type: BLOOD SPECIMENOrdering Facility: [facility] Address: [address] [place] [address] Performed By: #### 5 7021-8 ####[facility] LABCLIA [id number] [place] [address] Neutrophils (Bld) [#/Vol] 6.50 10*3/uL Normal 1.45-7.50 [facility] Comment on above: Order Comment: Speci men Type: BLOOD SPECIMENOrdering Facility: [facility] Address: [address] [place] [address] Performed By: #### 5 7021-8 ####[facility] LABCLIA [id number] [place] [address] Neutrophils/100 WBC (Bld) 69.3 % Normal [facility] Comment on above: Order Comment: Speci men Type: BLOOD SPECIMENOrdering Facility: [facility] Address: [address] [place] [address] Performed By: #### 5 7021-8 ####[facility] LABCLIA [id number] [place] [address] Nucleated RBC (Bld) [#/Vol] 10*3/uL Normal <0.01 [facility] Comment on above: Order Comment: Speci men Type: BLOOD SPECIMENOrdering Facility: [facility] Address: [address] [place] [address] Performed By: #### 5 7021-8 ####[facility] LABCLIA [id number] [place] [address] Nucleated RBC/100 WBC (Bld) [Ratio] 0.0 /100 WBC Normal [facility] Comment on above: Order Comment: Speci men Type: BLOOD SPECIMENOrdering Facility: [facility] Address: [address] [place] [address] Performed By: #### 5 7021-8 ####[facility] LABIA [id number] [place] [address] Platelet mean volume (Bld) [Entitic vol] 11.9 fL Normal 9.0-12.7 [facility] Comment on above: Order Comment: Speci men Type: BLOOD SPECIMENOrdering Facility: [facility] Address: [address] [place] [address] Performed By: #### 5 7021-8 ####[facility] LABCLIA [id number] [place] [address] Platelets (Bld) [#/Vol] 252 10*3/uL Normal 150-400 [facility] Comment on above: Order Comment: Speci men Type: BLOOD SPECIMENOrdering Facility: [facility] Address: [address] [place] [address] Performed By: #### 5 7021-8 ####[facility] LABIA [id number] [place] [address] RBC (Bld) [#/Vol] 3.81 10*6/uL Low 3.90-5.20 [facility] Comment on above: Order Comment: Speci men Type: BLOOD SPECIMENOrdering Facility: [facility] Address: [address] [address] Performed By: #### 5 7021-8 ####[facility] LABIA [id number] [place] [address] WBC (Bld) [#/Vol] 9.38 10*3/uL Normal 3.70-11.00 [facility] Comment on above: Order Comment: Speci men Type: BLOOD SPECIMENOrdering Facility: [facility] Address: [address] [place] [address] Performed By: #### 5 7021-8 ####[facility] LABIA [id number] [place] [address] Cancer Ag15-3 SerPl-aCncon 0 04-30-2023 Cancer Ag 15-3 Qn 9.9 U/mL Normal <26.0 [facility] Comment on above: Order Comment: Speci men Type: BLOOD SPECIMENOrdering Facility: [facility] Address: [address] [place] [address] Result Comment: The CA 15-3 test methodology used is the Electrochemiluminescence Immunoassay by [employer]. Results obtained with different methods or kits cannot be used interchangeably. Performed By: #### 6 875-9 ####[facility] LABCLIA [id number] [address] OF [facility] Cancer Ag27-29 SerPl-aCncon 04-30-2023 Cancer Ag 27-29 Qn 12.5 [arb'U]/mL Normal <38.6 [facility] Comment on above: Order Comment: Speci men Type: BLOOD SPECIMENOrdering Facility: [facility] Address: [address] [place] [address] Result Comment: The CA27.29 test was performed using the [employer] XP chemiluminometric immunoassay method. Results obtained with different assay methods or kits cannot be used interchangeably. Performed By: #### 1 7842-6 ####[facility] LABIA [id number] [place] [id number] [place] Comprehensive metabolic 2000 panelon 04-30-2023 Albumin [Mass/Vol] 4.3 g/dL Normal 3.9-4.9 [facility] Comment on above: Order Comment: Speci men Type: BLOOD SPECIMENOrdering Facility: [facility] Address: [address] [place] [address] Performed By: #### 2 4323-8 ####[facility] LABCLIA [id number] [place] [address] ALP [Catalytic activity/Vol] 93 U/L Normal 34-123 [facility] Comment on above: Order Comment: Speci men Type: BLOOD SPECIMENOrdering Facility: [facility] Address: [address] [place] [address] Performed By: #### 2 4323-8 ####[facility] LABCLIA [id number] [place] [address] ALT [Catalytic activity/Vol] 14 U/L Normal 7-38 [facility] Comment on above: Order Comment: Speci men Type: BLOOD SPECIMENOrdering Facility: [facility] Address: [address] [place] [address] Performed By: #### 2 4323-8 ####[facility] LABCLIA [id number] [place] [address] Anion gap [Moles/Vol] 14 mmol/L Normal 9-18 [facility] Comment on above: Order Comment: Speci men Type: BLOOD SPECIMENOrdering Facility: [facility] Address: [address] [place] [address] Performed By: #### 2 4323-8 ####[facility] LABCLIA [id number] [place] [address] AST [Catalytic activity/Vol] 18 U/L Normal 13-35 [facility] Comment on above: Order Comment: Speci men Type: BLOOD SPECIMENOrdering Facility: [facility] Address: [address] [place] [address] Performed By: #### 2 4323-8 ####[facility] LABCLIA [id number] [place] [address] Bilirubin [Mass/Vol] 0.3 mg/dL Normal 0.2-1.3 [facility] Comment on above: Order Comment: Speci men Type: BLOOD SPECIMENOrdering Facility: [facility] Address: [address] [place] [address] Performed By: #### 2 4323-8 ####[facility] LABCLIA [id number] [place] [address] Calcium [Mass/Vol] 10.6 mg/dL High 8.5-10.2 [facility] Comment on above: Order Comment: Speci men Type: BLOOD SPECIMENOrdering Facility: [facility] Address: [address] [place] [address] Performed By: #### 2 4323-8 ####[facility] LABCLIA [id number] [place] [address] Chloride [Moles/Vol] 98 mmol/L Normal 97-105 [facility] Comment on above: Order Comment: Speci men Type: BLOOD SPECIMENOrdering Facility: [facility] Address: [address] [place] [address] Performed By: #### 2 4323-8 ####[facility] LABCLIA [id number] [place] [address] CO2 [Moles/Vol] 26 mmol/L Normal 22-30 [facility] Comment on above: Order Comment: Speci men Type: BLOOD SPECIMENOrdering Facility: [facility] Address: [address] [place] [address] Performed By: #### 2 4323-8 ####[facility] LABCLIA [id number] [place] [address] Creatinine [Mass/Vol] 1.38 mg/dL High 0.58-0.96 [facility] Comment on above: Order Comment: Anastacio bonilla Type: BLOOD SPECIMENOrdering Facility: [facility] Address: [address] [address] Performed By: #### 2 4323-8 ####[facility] LABCLIA [id number] [place] [address] ESTIMATED GLOMERULAR FILTRATION RATE 39 mL/min/1.73m??? Low >=60 [facility] Comment on above: Order Comment: Anastacio irene Type: BLOOD SPECIMENOrdering Facility: [facility] Address: [address] [place] [address] Result Comment: Sugar mated Glomerular Filtration Rate [...] actual GFR. Performed By: #### 2 4323-8 ####[facility] LABCLIA [id number] [place] [address] Glucose [Mass/Vol] 207 mg/dL High 74-99 [facility] Comment on above: Order Comment: Anastacio bonilla Type: BLOOD SPECIMENOrdering Facility: [facility] Address: [address] [place] [address] Result Comment: The [employer] Diabetes Association (ADA) provides guidance for cutoff [...] Standards of Medical Care in Diabetes 2016, Irish Diabetes Association. Diabetes Care. 2016.39(Suppl 1). Performed By: #### 2 4323-8 ####[facility] LABCLIA [id number] [place] [address] Potassium [Moles/Vol] 3.7 mmol/L Normal 3.7-5.1 [facility] Comment on above: Order Comment: Speci men Type: BLOOD SPECIMENOrdering Facility: [facility] Address: [address] [place] [address] Performed By: #### 2 4323-8 ####[facility] LABCLIA [id number] [place] [address] Protein [Mass/Vol] 6.9 g/dL Normal 6.3-8.0 [facility] Comment on above: Order Comment: Speci men Type: BLOOD SPECIMENOrdering Facility: [facility] Address: [address] [place] [address] Performed By: #### 2 4323-8 ####[facility] LABCLIA [id number] [place] [address] Sodium [Moles/Vol] 138 mmol/L Normal 136-144 [facility] Comment on above: Order Comment: Speci men Type: BLOOD SPECIMENOrdering Facility: [facility] Address: [address] [place] [address] Performed By: #### 2 4323-8 ####[facility] LABCLIA [id number] [place] [address] Urea nitrogen [Mass/Vol] 39 mg/dL High 7-21 [facility] Comment on above: Order Comment: Speci men Type: BLOOD SPECIMENOrdering Facility: [facility] Address: [address] [place] [address] Performed By: #### 2 4323-8 ####[facility] LABCLIA [id number] [place] [address] PTH RELATED PEPTIDEon 2022 PTH RELATED PEPTIDE 3.9 pmol/L High 0.0-3.4 [facility] Comment on above: Order Comment: Speci men Type: BLOOD SPECIMENOrdering Facility: [facility] Address: [address] [place] [address] Result Comment: INTE RPRETIVE INFORMATION: Parathyroid Hormone-Related Peptide This test was developed and its performance characteristics determined by [facility]. It has not been cleared or approved by the [place] Food and Drug Administration. This test was performed in a CLIA certified laboratory and is intended for clinical purposes. Performed By: [facility] [address] [place] [address] Junction Maker: Mark Fernandez MD, PhD CLIA Number: [id number] Performed By: #### P THPEP ####[facility] [id number] [place] [address] CBC W Auto Differential pane l (Bld)on 04-29-2023 Basophils (Bld) [#/Vol] 0.05 10*3/uL Normal <0.11 [facility] Comment on above: Order Comment: Speci men Type: BLOOD SPECIMENOrdering Facility: [facility] Address: [address] [place] [address] Performed By: #### 5 7021-8 ####[facility] LABIA [id number] [place] [address] Basophils/100 WBC (Bld) 0.5 % Normal [facility] Comment on above: Order Comment: Speci men Type: BLOOD SPECIMENOrdering Facility: [facility] Address: [address] [place] [address] Performed By: #### 5 7021-8 ####[facility] LABCLIA [id number] [place] [address] Differential cell count method Nom (Bld) Auto Normal [facility] Comment on above: Order Comment: Speci men Type: BLOOD SPECIMENOrdering Facility: [facility] Address: [address] [place] [address] Performed By: #### 5 7021-8 ####[facility] LABCLIA [id number] [place] [address] Eosinophils (Bld) [#/Vol] 0.17 10*3/uL Normal <0.46 [facility] Comment on above: Order Comment: Speci men Type: BLOOD SPECIMENOrdering Facility: [facility] Address: [address] [place] [address] Performed By: #### 5 7021-8 ####[facility] LABCLIA [id number] [place] [address] Eosinophils/100 WBC (Bld) 1.6 % Normal [facility] Comment on above: Order Comment: Speci men Type: BLOOD SPECIMENOrdering Facility: [facility] Address: [address] [place] [address] Performed By: #### 5 7021-8 ####[facility] LABCLIA [id number] [place] [address] Erythrocyte distribution width (RBC) [Ratio] 12.7 % Normal 11.5-15.0 [facility] Comment on above: Order Comment: Speci men Type: BLOOD SPECIMENOrdering Facility: [facility] Address: [address] [place] [address] Performed By: #### 5 7021-8 ####[facility] LABCLIA [id number] [place] [address] Hematocrit (Bld) [Volume fraction] 40.7 % Normal 36.0-46.0 [facility] Comment on above: Order Comment: Speci men Type: BLOOD SPECIMENOrdering Facility: [facility] Address: [address] [place] [address] Performed By: #### 5 7021-8 ####[facility] LABCLIA [id number] [place] [address] Hemoglobin (Bld) [Mass/Vol] 13.4 g/dL Normal 11.5-15.5 [facility] Comment on above: Order Comment: Speci men Type: BLOOD SPECIMENOrdering Facility: [facility] Address: [address] [address] Performed By: #### 5 7021-8 ####[facility] LABCLIA [id number] [place] [address] Immature granulocytes (Bld) [#/Vol] 10*3/uL Normal <0.10 [facility] Comment on above: Order Comment: Speci men Type: BLOOD SPECIMENOrdering Facility: [facility] Address: [address] [address] Performed By: #### 5 7021-8 ####[facility] LABCLIA [id number] [place] [address] Immature granulocytes/100 WBC (Bld) 0.2 % Normal [facility] Comment on above: Order Comment: Speci men Type: BLOOD SPECIMENOrdering Facility: [facility] Address: [address] [place] [address] Performed By: #### 5 7021-8 ####[facility] LABCLIA [id number] [place] [address] Lymphocytes (Bld) [#/Vol] 1.80 10*3/uL Normal 1.00-4.00 [facility] Comment on above: Order Comment: Speci men Type: BLOOD SPECIMENOrdering Facility: [facility] Address: [address] [place] [address] Performed By: #### 5 7021-8 ####[facility] LABCLIA [id number] [place] [address] Lymphocytes/100 WBC (Bld) 16.9 % Normal [facility] Comment on above: Order Comment: Speci men Type: BLOOD SPECIMENOrdering Facility: [facility] Address: [address] [place] [address] Performed By: #### 5 7021-8 ####[facility] LABCLIA [id number] [place] [address] MCH (RBC) [Entitic mass] 31.2 pg Normal 26.0-34.0 [facility] Comment on above: Order Comment: Speci men Type: BLOOD SPECIMENOrdering Facility: [facility] Address: [address] [place] [address] Performed By: #### 5 7021-8 ####[facility] LABCLIA [id number] [place] [address] MCHC (RBC) [Mass/Vol] 32.9 g/dL Normal 30.5-36.0 [facility] Comment on above: Order Comment: Speci men Type: BLOOD SPECIMENOrdering Facility: [facility] Address: [address] [address] Performed By: #### 5 7021-8 ####[facility] LABCLIA [id number] [place] [address] MCV (RBC) [Entitic vol] 94.7 fL Normal 80.0-100.0 [facility] Comment on above: Order Comment: Speci men Type: BLOOD SPECIMENOrdering Facility: [facility] Address: [address] [place] [address] Performed By: #### 5 7021-8 ####[facility] LABCLIA [id number] [place] [address] Monocytes (Bld) [#/Vol] 0.88 10*3/uL High <0.87 [facility] Comment on above: Order Comment: Speci men Type: BLOOD SPECIMENOrdering Facility: [facility] Address: [address] [address] Performed By: #### 5 7021-8 ####[facility] LABCLIA [id number] [place] [address] Monocytes/100 WBC (Bld) 8.3 % Normal [facility] Comment on above: Order Comment: Speci men Type: BLOOD SPECIMENOrdering Facility: [facility] Address: [address] [address] Performed By: #### 5 7021-8 ####[facility] LABCLIA [id number] [place] [address] Neutrophils (Bld) [#/Vol] 7.74 10*3/uL High 1.45-7.50 [facility] Comment on above: Order Comment: Speci men Type: BLOOD SPECIMENOrdering Facility: [facility] Address: [address] [place] [address] Performed By: #### 5 7021-8 ####[facility] LABCLIA [id number] [place] [address] Neutrophils/100 WBC (Bld) 72.5 % Normal [facility] Comment on above: Order Comment: Speci men Type: BLOOD SPECIMENOrdering Facility: [facility] Address: [address] [place] [address] Performed By: #### 5 7021-8 ####[facility] LABCLIA [id number] [place] [address] Nucleated RBC (Bld) [#/Vol] 10*3/uL Normal <0.01 [facility] Comment on above: Order Comment: Speci men Type: BLOOD SPECIMENOrdering Facility: [facility] Address: [address] [place] [address] Performed By: #### 5 7021-8 ####[facility] LABCLIA [id number] [place] [address] Nucleated RBC/100 WBC (Bld) [Ratio] 0.0 /100 WBC Normal [facility] Comment on above: Order Comment: Speci men Type: BLOOD SPECIMENOrdering Facility: [facility] Address: [address] [place] [address] Performed By: #### 5 7021-8 ####[facility] LABIA [id number] [place] [address] Platelet mean volume (Bld) [Entitic vol] 10.7 fL Normal 9.0-12.7 [facility] Comment on above: Order Comment: Speci men Type: BLOOD SPECIMENOrdering Facility: [facility] Address: [address] [place] [address] Performed By: #### 5 7021-8 ####[facility] LABIA [id number] [place] [address] Platelets (Bld) [#/Vol] 280 10*3/uL Normal 150-400 [facility] Comment on above: Order Comment: Speci men Type: BLOOD SPECIMENOrdering Facility: [facility] Address: [address] [place] [address] Performed By: #### 5 7021-8 ####[facility] LABIA [id number] [place] [address] RBC (Bld) [#/Vol] 4.30 10*6/uL Normal 3.90-5.20 [facility] Comment on above: Order Comment: Speci men Type: BLOOD SPECIMENOrdering Facility: [facility] Address: [address] [place] [address] Performed By: #### 5 7021-8 ####[facility] [id number] [place] [address] WBC (Bld) [#/Vol] 10.66 10*3/uL Normal 3.70-11.00 [facility] Comment on above: Order Comment: Speci men Type: BLOOD SPECIMENOrdering Facility: [facility] Address: [address] [place] [address] Performed By: #### 5 7021-8 ####[facility] [id number] [place] [address] CNOVSPon 04-29-2023 CNOVSP Visit (SP) Office ([facility]) -- ANDREW BARROS ([id number]) 1945 F Date Time Provider Department 04/29/23 3:15 PM SANDEEP LENZ During your visit today, we recorded the following information about you: Temperature Pulse Respiration Blood pressure 97 degrees 66/minute 16/minute 153/66 Weight Height 58.2 kg 1.626 m Sandeep Lenz MD 05/05/2023 6:04 PM Signed NAME: Andrew Barros CLINIC NO.: [id number] DATE OF SERVICE: April 29, 2023 (Eduardo) [...] outer quadrant, invasive ductal carcinoma, ER postive, PA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 Mammograms at [facility] on 01/04/2021 Bi-Rads 2 benign. REVIEW OF [...] of recurring mass. ALLERGIES: ALLERGIES Allergen Reactions [id number]-Lgp-Gvv Red* Unknown Other reaction(s): AOF MEDICATIONS: doxazosin (CARDURA) 4 mg tablet Take 4 mg by mouth daily at bedtime. aspirin (ASPIR-81 ORAL) Take 81 mg by mo (more content not included)... Normal [facility] Comprehensive metabolic 2000 panelon 04-29-2023 Albumin [Mass/Vol] 4.4 g/dL Normal 3.9-4.9 [facility] Comment on above: Order Comment: Speci men Type: BLOOD SPECIMENOrdering Facility: [facility] Address: [address] [place] [address] Performed By: #### 2 4323-8 ####[facility] LABCLIA [id number] [place] [address] ALP [Catalytic activity/Vol] 98 U/L Normal 34-123 [facility] Comment on above: Order Comment: Speci men Type: BLOOD SPECIMENOrdering Facility: [facility] Address: [address] [place] [address] Performed By: #### 2 4323-8 ####[facility] LABCLIA [id number] [place] [address] ALT [Catalytic activity/Vol] 15 U/L Normal 7-38 [facility] Comment on above: Order Comment: Speci men Type: BLOOD SPECIMENOrdering Facility: [facility] Address: [address] [place] [address] Performed By: #### 2 4323-8 ####[facility] LABCLIA [id number] [place] [address] Anion gap [Moles/Vol] 15 mmol/L Normal 9-18 [facility] Comment on above: Order Comment: Speci men Type: BLOOD SPECIMENOrdering Facility: [facility] Address: [address] [place] [address] Performed By: #### 2 4323-8 ####[facility] LABCLIA [id number] [place] [address] AST [Catalytic activity/Vol] 20 U/L Normal 13-35 [facility] Comment on above: Order Comment: Speci men Type: BLOOD SPECIMENOrdering Facility: [facility] Address: [address] [place] [address] Performed By: #### 2 4323-8 ####[facility] LABCLIA [id number] [place] [address] Bilirubin [Mass/Vol] 0.4 mg/dL Normal 0.2-1.3 [facility] Comment on above: Order Comment: Speci men Type: BLOOD SPECIMENOrdering Facility: [facility] Address: [address] [place] [address] Performed By: #### 2 4323-8 ####[facility] LABCLIA [id number] [place] [address] Calcium [Mass/Vol] 11.1 mg/dL High 8.5-10.2 [facility] Comment on above: Order Comment: Speci men Type: BLOOD SPECIMENOrdering Facility: [facility] Address: [address] [place] [address] Performed By: #### 2 4323-8 ####[facility] LABCLIA [id number] [place] [address] Chloride [Moles/Vol] 98 mmol/L Normal 97-105 [facility] Comment on above: Order Comment: Speci men Type: BLOOD SPECIMENOrdering Facility: [facility] Address: [address] [place] [address] Performed By: #### 2 4323-8 ####[facility] LABCLIA [id number] [place] [address] CO2 [Moles/Vol] 28 mmol/L Normal 22-30 [facility] Comment on above: Order Comment: Speci men Type: BLOOD SPECIMENOrdering Facility: [facility] Address: [address] [place] [address] Performed By: #### 2 4323-8 ####[facility] LABCLIA [id number] [place] [address] Creatinine [Mass/Vol] 1.49 mg/dL High 0.58-0.96 [facility] Comment on above: Order Comment: Speci men Type: BLOOD SPECIMENOrdering Facility: [facility] Address: [address] [place] [address] Performed By: #### 2 4323-8 ####[facility] LABCLIA [id number] [place] [address] ESTIMATED GLOMERULAR FILTRATION RATE 36 mL/min/1.73m??? Low >=60 [facility] Comment on above: Order Comment: Speci men Type: BLOOD SPECIMENOrdering Facility: [facility] Address: [address] [place] [address] Result Comment: Sugar mated Glomerular Filtration Rate [...] actual GFR. Performed By: #### 2 4323-8 ####[facility] LABCLIA [id number] [place] [address] Glucose [Mass/Vol] 135 mg/dL High 74-99 [facility] Comment on above: Order Comment: Speci men Type: BLOOD SPECIMENOrdering Facility: [facility] Address: [address] [place] [address] Result Comment: The [employer] Diabetes Association (ADA) provides guidance for cutoff [...] Standards of Medical Care in Diabetes 2016, [employer] Diabetes Association. Diabetes Care. 2016.39(Suppl 1). Performed By: #### 2 4323-8 ####[facility] LABCLIA [id number] [place] [address] Potassium [Moles/Vol] 3.9 mmol/L Normal 3.7-5.1 [facility] Comment on above: Order Comment: Speci men Type: BLOOD SPECIMENOrdering Facility: [facility] Address: [address] [address] Performed By: #### 2 4323-8 ####[facility] LABCLIA [id number] [place] [address] Protein [Mass/Vol] 7.4 g/dL Normal 6.3-8.0 [facility] Comment on above: Order Comment: Speci men Type: BLOOD SPECIMENOrdering Facility: [facility] Address: [address] [place] [address] Performed By: #### 2 4323-8 ####[facility] LABCLIA [id number] [place] [address] Sodium [Moles/Vol] 141 mmol/L Normal 136-144 [facility] Comment on above: Order Comment: Speci men Type: BLOOD SPECIMENOrdering Facility: [facility] Address: [address] [address] Performed By: #### 2 4323-8 ####[facility] LABCLIA [id number] [place] [address] Urea nitrogen [Mass/Vol] 38 mg/dL High 7-21 [facility] Comment on above: Order Comment: Speci men Type: BLOOD SPECIMENOrdering Facility: [facility] Address: [place] [address] Performed By: #### 2 4323-8 ####[facility] LABCLIA [id number] [place] [address] Office Visiton 04-01-2023 Follow-up visit [id number] Wayne Barros 1945 F Date Provider Department Center 04/01/2023 GISSELL WANG KASHIF Marie Family History Problem Relation Age of Onset Coronary artery disease Mother Coronary artery disease Father Coronary artery disease Sister Coronary artery disease Brother Family Status - Relation Status Age at Mother Father Sister Brother Level of Service:64992 PA OFFICE/OUTPATIENT ESTABLISHED MOD MDM 30-39 MIN Reason for Visit and Comments: Atrial Fibrillation [80] Hypertension [966180] [facility] 36on 03-27-2023 36 Called and discussed . Thanks. Normal [facility] Office Visiton 01-14-2023 Follow-up visit [id number] Wayne Barros 1945 F Date Provider Department Center 01/14/2023 DAYO OLSEN KASHIF Marie Family History Problem Relation Age of Onset Coronary artery disease Mother Coronary artery disease Father Coronary artery disease Sister Coronary artery disease Brother Family Status - Relation Status Age at Mother Father Sister Brother Level of Service:36512 PA OFFICE/OUTPATIENT ESTABLISHED MOD MDM 30-39 MIN Reason for Visit and Comments: Atrial Fibrillation [80] Congestive Heart Failure [127] Hypertension [490454] Valve Disorder [3372] [facility] BNPon 08-24-2022 Natriuretic peptide B (Bld) [Mass/Vol] 1296.0 pg/mL Normal <=1,800.0 [facility] Comment on above: Performed By: #### B CASTING MACHINE SET UP OPERATOR, CMP ####[facility] [address] [address]Dr. Swathi Reis CBC W MANUAL DIFFon 08-24-20 22 ATYPICAL LYMPH # Normal [facility] Comment on above: Performed By: #### C NGA ####[facility] [address] [address]Dr. Swathi Reis ATYPICAL LYMPH % Normal [facility] Comment on above: Performed By: #### C NGA ####[facility] [address] [address]Dr. Swathi Reis BAND # 0.1 103/ul Normal 0.0-0.3 [facility] Comment on above: Performed By: #### C NGA ####[facility] [address] [address]Dr. Inessalan Reis BAND % 1 % Normal 0-5 [facility] Comment on above: Performed By: #### C NGA ####[facility] [address] [place], [place] [address]Dr. Swathi Reis BASOM # 0.00 103/ul Normal 0.00-0.10 [facility] Comment on above: Performed By: #### C NGA ####[facility] [address] [place], [place] [address]Dr. Swathi Reis BASOM % 0.0 % Critically low 0.2-2.0 [facility] Comment on above: Performed By: #### C NGA ####[facility] [address] [place], [place] [address]Dr. Swathi Reis BLAST # Normal [facility] Comment on above: Performed By: #### C NGA ####[facility] [address] [place], [place] [address]Dr. Swathi Reis BLAST % Normal [facility] Comment on above: Performed By: #### C NGA ####[facility] Grvwjleqnc[address] [place], [place] [address]Dr. Swathi Reis CORRECTED WBC Normal 4.0-11.0 [facility] Comment on above: Performed By: #### C NGA ####[facility] Kjzekinlrq[address] [place], [place] [address]Dr. Swathi Reis EOS # 0.39 103/ul Normal 0.00-0.70 [facility] Comment on above: Performed By: #### C BCYUN ####[facility] Seiiitktze[address] [place] [id number]. Swathi Reis EOS% 3.0 % Normal 0.9-7.0 [facility] Comment on above: Performed By: #### C BCYUN ####[facility] Udcbsllfzq29[address] [place] [id number]. Swathi Reis HCT 32.6 % Critically low 36.0-48.0 [facility] Comment on above: Performed By: #### C NGA ####[facility] Pktstfuvla5785 [place] [id number]. Swathi Reis HGB 10.6 g/dl Critically low 12.0-16.0 [facility] Comment on above: Performed By: #### C NGA ####[facility] Ooqrauless35[address] [place] [id number]. Swathi Reis HYPOCHROMASIA SLIGHT Normal [facility] Comment on above: Performed By: #### C NGA ####[facility] Ajllknrzcl0988 [place] [id number]. Swathi Reis LYMPHM # 1.04 103/ul Critically low 1.20-3.80 [facility] Comment on above: Performed By: #### C NGA ####[facility] Mhemzmupia[address] [place] [id number]. Swathi Reis LYMPHM% 8.0 % Critically low 20.5-60.0 [facility] Comment on above: Performed By: #### C NGA ####[facility] Oxuogirodk7957 [place] [address]Dr. Swathi Reis MCH 29.2 pg Normal 26.7-34.0 [facility] Comment on above: Performed By: #### C NGA ####[facility] Zoowfljjvs2706 [place] [address]Dr. Swathi Reis MCHC 32.5 g/dl Normal 29.9-35.2 [facility] Comment on above: Performed By: #### C NGA ####[facility] Wvwdowxcqo4241 [place] [address]Dr. Swathi Reis MCV 89.8 fL Normal 81.0-99.0 [facility] Comment on above: Performed By: #### C NGA ####[facility] Xstaqubnfr2310 [place] [id number]. Swathi Reis METAMYELOCYTE # Normal [facility] Comment on above: Performed By: #### C NGA ####[facility] Msggnaqfex7[address] [place] [address]Dr. Swathi Reis METAMYELOCYTE % Normal [facility] Comment on above: Performed By: #### C NGA ####[facility] Mnrnldxdyc9116 [place] [address]Dr. Swathi Reis MONOM# 1.17 103/ul Critically high 0.30-0.80 [facility] Comment on above: Performed By: #### C NGA ####[facility] Mpdlersanx[address] [place], [place] [address]Dr. Swathi Reis MONOM% 9.0 % Normal 1.7-12.0 [facility] Comment on above: Performed By: #### C NGA ####[facility] Nidlrypxgx[address] [place], [place] [address]Dr. Swathi Reis MPV 10.0 fL Normal 9.5-13.5 [facility] Comment on above: Performed By: #### Kenney SYLVESTER ####[facility] Ghffvvojdd[address] [place], [place] [address]Dr. Swathi Reis MYELOCYTE # Normal [facility] Comment on above: Performed By: #### C NGA ####[facility] Cmwggmguoe[address] [place], [place] [address]Dr. Swathi Reis MYELOCYTE % Normal [facility] Comment on above: Performed By: #### C NGA ####[facility] Eomuoglgbf8306 [place] [address]Dr. Swathi Reis NRBC Normal [facility] Comment on above: Performed By: #### C NGA ####[facility] Mnrzuxlunh77[address] [place], [place] [address]Zz. Swathi Reis PLT 353 103/ul Normal 150-450 [facility] Comment on above: Performed By: #### C GNA ####[facility] Mohqhpdjuu6260 [place], [place] [address]Vg. Swathi Reis RBC 3.63 106/ul Critically low 4.20-5.40 [facility] Comment on above: Performed By: #### C NGA ####[facility] Zygefappgx0392 [place] [address]Dr. Swathi Reis RDW 13.6 % Normal 11.0-15.0 [facility] Comment on above: Performed By: #### C NGA ####[facility] Dextlkdgfd1901 [place] [phone]. Swathi Reis SEG # 10.27 103/ul Critically high 1.40-6.50 [facility] Comment on above: Performed By: #### C NGA ####[facility] Fmhqhvycmi5809 [place] [address]Dr. Swathi Reis SEG % 79.0 % Critically high 43.0-75.0 [facility] Comment on above: Performed By: #### C NGA ####[facility] Hrsjoblhzm4079 [place] [address]Dr. Swathi Reis WBC 13.0 103/ul Critically high 4.0-11.0 [facility] Comment on above: Performed By: #### C NGA ####[facility] Pubmkqtwpl5393 [place] [phone]. Swathi Reis DIGOXINon 08-24-2022 DIG 1.8 ng/mL Normal 0.9-2.0 The [facility] Comment on above: Performed By: #### D IG ####[facility] Iikyqdwyoh8279 [place] [id number] Swathi Reis PROF 14(COMP METB)on 022 Albumin [Mass/Vol] 2.4 g/dL Critically low 3.4-5.0 [facility] Comment on above: Performed By: #### B CASTING MACHINE SET UP OPERATOR, CMP ####[facility] Ldqhbfaixx5558 [place] [id number]. Swathi Reis Albumin/Globulin [Mass ratio] 0.5 {ratio} Normal [facility] Comment on above: Performed By: #### B CASTING MACHINE SET UP OPERATOR, CMP ####[facility] Rexnguywld7628 [place] [id number]. Swathi Reis ALP [Catalytic activity/Vol] 93 U/L Normal 46-116 [facility] Comment on above: Performed By: #### B CASTING MACHINE SET UP OPERATOR, CMP ####[facility] Wkysicfdur7340 [place] [id number]. Swathi Reis ALT [Catalytic activity/Vol] 8 U/L Critically low 14-59 [facility] Comment on above: Performed By: #### B CASTING MACHINE SET UP OPERATOR, CMP ####[facility] Hswyquyctl9082 [place] [address]Dr. Swathi Reis Anion gap [Moles/Vol] 11.2 mmol/L Normal [facility] Comment on above: Performed By: #### B CASTING MACHINE SET UP OPERATOR, CMP ####[facility] Reiobjfqdk7970 [place] [address]Dr. Swathi Reis AST [Catalytic activity/Vol] 14 U/L Critically low 15-37 [facility] Comment on above: Performed By: #### B CASTING MACHINE SET UP OPERATOR, CMP ####[facility] Hpeqbumlai3553 [place] [id number]. Swathi Reis Bilirubin [Mass/Vol] 0.4 mg/dL Normal 0.2-1.0 [facility] Comment on above: Performed By: #### B CASTING MACHINE SET UP OPERATOR, CMP ####[facility] Xkezappojh5736 [place] [phone]. Swathi Reis Calcium [Mass/Vol] 9.4 mg/dL Normal 8.5-10.1 [facility] [place] Comment on above: Performed By: #### B CASTING MACHINE SET UP OPERATOR, CMP ####[facility] Yxwcjigpev9918 [place] [phone]. Swathi Reis Chloride [Moles/Vol] 101 mmol/L Normal 98-107 [facility] Comment on above: Performed By: #### B CASTING MACHINE SET UP OPERATOR, CMP ####[facility] Cdvubxstmm4284 [place] [address]Dr. Swathi Reis CO2 [Moles/Vol] 31.0 mmol/L Normal 21.0-32.0 [facility] Comment on above: Performed By: #### B CASTING MACHINE SET UP OPERATOR, CMP ####[facility] Hfkghicdhg2599 [place] [id number]. Swathi Reis Creatinine [Mass/Vol] 1.49 mg/dL Critically high 0.55-1.02 [facility] Comment on above: Performed By: #### B CASTING MACHINE SET UP OPERATOR, CMP ####[facility] Qirvltmixf[address] [place], [place] [address]Dr. Swathi Reis EGFR-AF ARGENTINE 41 mL/min/1.73m2 Critically low >=60 [facility] Comment on above: Performed By: #### B CASTING MACHINE SET UP OPERATOR, CMP ####[facility] Kzzekqzhhz[address] [place], [place] [address]Dr. Swathi Chato EGFR-NON AF ARGENTINE 34 mL/min/1.73m2 Critically low >=60 The [facility] Comment on above: Performed By: #### B CASTING MACHINE SET UP OPERATOR, CMP ####[facility] Exlnmwyebm[address] [place], [place] [address]Dr. Swathi Reis Globulin (S) [Mass/Vol] 4.8 g/dL Normal [facility] Comment on above: Performed By: #### B CASTING MACHINE SET UP OPERATOR, CMP ####[facility] Ynnvtoenqg3090 [place] [address]Dr. Swathi Reis Glucose [Mass/Vol] 153 mg/dL Critically high 74-106 [facility] Comment on above: Performed By: #### B CASTING MACHINE SET UP OPERATOR, CMP ####[facility] Jolhppuooo[address] [place], [place] [address]Dr. Swathi Reis Potassium [Moles/Vol] 4.2 mmol/L Normal 3.5-5.1 [facility] Comment on above: Performed By: #### B CASTING MACHINE SET UP OPERATOR, CMP ####[facility] Bsgouocewy[address] [place], [place] [address]Dr. Swathi Reis Protein [Mass/Vol] 7.2 g/dL Normal 6.4-8.2 The [facility] Comment on above: Performed By: #### B CASTING MACHINE SET UP OPERATOR, CMP ####[facility] Yowjomkkuw[address] [place], [place] [address]Dr. Swathi Reis Sodium [Moles/Vol] 139 mmol/L Normal 136-145 [facility] Comment on above: Performed By: #### B CASTING MACHINE SET UP OPERATOR, CMP ####[facility] Nzqvctayxn[address] [place], [place] [address]Dr. Swathi Reis Urea nitrogen [Mass/Vol] 22.0 mg/dL Critically high 7.0-18.0 [facility] Comment on above: Performed By: #### B CASTING MACHINE SET UP OPERATOR, CMP ####[facility] Jlaejnxwcp[address] [place], [place] [address]Dr. Inessatracy Reis Urea nitrogen/Creatinine [Mass ratio] 14.8 mg/mg Normal [facility] Comment on above: Performed By: #### B CASTING MACHINE SET UP OPERATOR, CMP ####[facility] Gnknggqdan[address] [place], [place] [address]Dr. Swathi Reis BNPon 08-23-2022 Natriuretic peptide B (Bld) [Mass/Vol] 1755.0 pg/mL Normal <=1,800.0 The [facility] Comment on above: Performed By: #### B CASTING MACHINE SET UP OPERATOR, CMP ####[facility] Ixtuflwpoc0[address] [place], [place] [address]Dr. Swathi Reis CBC AUTO DIFFon 08-23-2022 BASO # 0.1 103/ul Normal 0.0-0.1 The [facility] Comment on above: Performed By: #### C BC ####[facility] Dugslakiij[address] [place], [place] [address]Dr. Inessatracy Reis Basophils/100 WBC (Bld) 0.7 % Normal 0.2-2.0 The [facility] Comment on above: Performed By: #### C BC ####[facility] Wiqkjjswvq[address] [place], [place] [address]Dr. Swathi Reis EO # 0.2 103/ul Normal 0.0-0.7 The [facility] Comment on above: Performed By: #### C BC ####[facility] Cgttwqtmmm8489 [place] [phone]. Swathi Reis Eosinophils/100 WBC (Bld) 2.2 % Normal 0.9-7.0 The [facility] Comment on above: Performed By: #### C BC ####[facility] Esoltbbvtr6085 [place] [address]Dr. Swathi Reis Erythrocyte distribution width (RBC) [Ratio] 13.6 % Normal 11.0-15.0 [facility] Comment on above: Performed By: #### C BC ####[facility] Emazmxfvss[address] [place], [place] [address]Dr. Swathi Reis Hematocrit (Bld) [Volume fraction] 33.1 % Critically low 36.0-48.0 The [facility] Comment on above: Performed By: #### C BC ####[facility] Bendyjeztn[address] [place], [place] [address]Dr. Swathi Reis Hemoglobin (Bld) [Mass/Vol] 10.6 g/dL Critically low 12.0-16.0 [facility] Comment on above: Performed By: #### C BC ####[facility] Pznehxuckx7394 [place] [address]Dr. Swathi Reis IG # 0.12 10e3/ul Critically high 0.00-0.03 [facility] Comment on above: Performed By: #### C BC ####[facility] Pztvquxxcv3909 [place] [address]Dr. Swathi Reis IG % 1.1 % Critically high 0.0-0.5 [facility] Comment on above: Performed By: #### C BC ####[facility] Murdajfiml8041 [place] [address]Dr. Swathi Reis LYMPH # 1.6 103/ul Normal 1.2-3.8 The [facility] Comment on above: Performed By: #### C BC ####[facility] Xlbehhfjiw[address] [place], [place] [address]Dr. Swathi Reis Lymphocytes/100 WBC (Bld) 14.6 % Critically low 20.5-60.0 The [facility] Comment on above: Performed By: #### C BC ####[facility] Yijybwtvfq3454 [place] [address]Dr. Swathi Reis MANUAL DIFF REQ NO Normal [facility] Comment on above: Performed By: #### C BC ####[facility] Uezfbeqwkv4448 [place] [id number]. Swathi Reis MCH (RBC) [Entitic mass] 29.0 pg Normal 26.7-34.0 [facility] Comment on above: Performed By: #### C BC ####[facility] Forgndlmvd[address] [place], [place] [address]Dr. Swathi Reis MCHC (RBC) [Mass/Vol] 32.0 g/dL Normal 29.9-35.2 [facility] Comment on above: Performed By: #### C BC ####[facility] Bqwfnznpwf[address] [place], [place] [address]Dr. Swathi Reis MCV (RBC) [Entitic vol] 90.4 fL Normal 81.0-99.0 [facility] Comment on above: Performed By: #### C BC ####[facility] Nzbmbksbqz[address] [place], [place] [address]Dr. Swathi Reis MONO # 1.4 103/ul Critically high 0.3-0.8 [facility] Comment on above: Performed By: #### C BC ####[facility] Hcfjfwetvw2607 [place] [address]Dr. Swathi Reis Monocytes/100 WBC (Bld) 12.8 % Critically high 1.7-12.0 The [facility] Comment on above: Performed By: #### C BC ####[facility] Gqcgvafpim7418 [place] [address]Dr. Inessatracy Reis NEUT # 7.5 103/ul Critically high 1.4-6.5 [facility] Comment on above: Performed By: #### C BC ####[facility] Aizrbaxhas[address] [place], [place] [address]Dr. Swathi Reis Neutrophils/100 WBC (Bld) 68.6 % Normal 43.0-75.0 [facility] Comment on above: Performed By: #### C BC ####[facility] Ucbmwhqbfb8661 [place] [id number]. Swathi Reis Platelet mean volume (Bld) [Entitic vol] 10.3 fL Normal 9.5-13.5 [facility] Comment on above: Performed By: #### C BC ####[facility] Klqzqeplwx9550 [place] [address]Dr. Swathi Reis PLT 387 103/ul Normal 150-450 [facility] Comment on above: Performed By: #### C BC ####[facility] Dakwulmixr7125 [place] [address]Dr. Swathi Reis RBC 3.66 106/ul Critically low 4.20-5.40 [facility] Comment on above: Performed By: #### C BC ####[facility] Ijnyqtnwns9982 [place] [address]Dr. Swathi Reis WBC 11.0 103/ul Normal 4.0-11.0 [facility] Comment on above: Performed By: #### C BC ####[facility] Brbaswzlrw[address] [place], [place] [address]Dr. Swathi Reis DIGOXINon 08-23-2022 DIG 1.6 ng/mL Normal 0.9-2.0 [facility] Comment on above: Performed By: #### D IG ####[facility] Jlsshslcib[address] [place], [place] [address]Dr. Swathi Reis POINT OF CARE GLUCOSEon Glucose [Mass/Vol] 167 mg/dL Critically high 74-106 [facility] Comment on above: Performed By: #### P OCGLUC ####[facility] Dhjdwzfjrw6091 [place] [address]Dr. Swathi Reis Glucose [Mass/Vol] 114 mg/dL Critically high 74-106 [facility] Comment on above: Performed By: #### P OCGLUC ####[facility] Fgswtgxvga9009 [place] [address]Dr. Swathi Reis Glucose [Mass/Vol] 272 mg/dL Critically high 74-106 [facility] Comment on above: Performed By: #### P OCGLUC ####[facility] Ynzzhtldvx4364 [place] [address]Dr. Swathi Reis PROF 14(COMP METB)on 022 Albumin [Mass/Vol] 2.4 g/dL Critically low 3.4-5.0 Th [facility] Comment on above: Performed By: #### B CASTING MACHINE SET UP OPERATOR, CMP ####[facility] Aiydsrdbnm6410 [place] [address]Dr. Swathi Reis Albumin/Globulin [Mass ratio] 0.5 {ratio} Normal [facility] Comment on above: Performed By: #### B CASTING MACHINE SET UP OPERATOR, CMP ####[facility] Cfxtuqpkpm9944 [place] [address]Dr. Swathi Reis ALP [Catalytic activity/Vol] 104 U/L Normal 46-116 [facility] Comment on above: Performed By: #### B CASTING MACHINE SET UP OPERATOR, CMP ####[facility] Oaqifkzlng[address] [place], [place] [address]Dr. Swathi Reis ALT [Catalytic activity/Vol] 7 U/L Critically low 14-59 [facility] Comment on above: Performed By: #### B CASTING MACHINE SET UP OPERATOR, CMP ####[facility] Dntyjiclsx[address] [place], [place] [address]Dr. Swathi Reis Anion gap [Moles/Vol] 11.1 mmol/L Normal [facility] Comment on above: Performed By: #### B CASTING MACHINE SET UP OPERATOR, CMP ####[facility] Phghflncaw[address] [place], [place] [address]Dr. Swathi Reis AST [Catalytic activity/Vol] 19 U/L Normal 15-37 [facility] Comment on above: Performed By: #### B CASTING MACHINE SET UP OPERATOR, CMP ####[facility] Olusnwrbuj[address] [place], [place] [address]Dr. Swathi Reis Bilirubin [Mass/Vol] 0.4 mg/dL Normal 0.2-1.0 [facility] Comment on above: Performed By: #### B CASTING MACHINE SET UP OPERATOR, CMP ####[facility] Hfdswyyxnr3729 [place] [address]Dr. Swathi Reis Calcium [Mass/Vol] 9.5 mg/dL Normal 8.5-10.1 [facility] [place] Comment on above: Performed By: #### B CASTING MACHINE SET UP OPERATOR, CMP ####[facility] Mhkehxocnc[address] [place], [place] [address]Dr. Swathi Reis Chloride [Moles/Vol] 101 mmol/L Normal 98-107 [facility] Comment on above: Performed By: #### B CASTING MACHINE SET UP OPERATOR, CMP ####[facility] Oypczoejbu[address] [place], [place] [address]Dr. Swathi Reis CO2 [Moles/Vol] 30.7 mmol/L Normal 21.0-32.0 [facility] Comment on above: Performed By: #### B CASTING MACHINE SET UP OPERATOR, CMP ####[facility] Owyjftwdnz[address] [place], [place] [address]Dr. Swathi Reis Creatinine [Mass/Vol] 1.53 mg/dL Critically high 0.55-1.02 [facility] Comment on above: Performed By: #### B CASTING MACHINE SET UP OPERATOR, CMP ####[facility] Xmymgnktff[address] [place], [place] [address]Dr. Swathi Reis EGFR-AF ARGENTINE 40 mL/min/1.73m2 Critically low >=60 [facility] Comment on above: Performed By: #### B CASTING MACHINE SET UP OPERATOR, CMP ####[facility] Tmnwsicnni84[address] [place], [place] [address]Dr. Swathi Reis EGFR-NON AF ARGENTINE 33 mL/min/1.73m2 Critically low >=60 [facility] Comment on above: Performed By: #### B CASTING MACHINE SET UP OPERATOR, CMP ####[facility] Kbutevaskx[address] [place], [place] [address]Dr. Swathi Reis Globulin (S) [Mass/Vol] 4.9 g/dL Normal [facility] Comment on above: Performed By: #### B CASTING MACHINE SET UP OPERATOR, CMP ####[facility] Jctfobgpze[address] [place], [place] [address]Dr. Swathi Reis Glucose [Mass/Vol] 139 mg/dL Critically high 74-106 [facility] Comment on above: Performed By: #### B CASTING MACHINE SET UP OPERATOR, CMP ####[facility] Nqdqpuwdjv[address] [place], [place] [address]Dr. Swathi Reis Potassium [Moles/Vol] 3.8 mmol/L Normal 3.5-5.1 The [facility] Comment on above: Performed By: #### B CASTING MACHINE SET UP OPERATOR, CMP ####[facility] Hbsllqmhxb133[address] [place], [place] [address]Dr. Swathi Reis Protein [Mass/Vol] 7.3 g/dL Normal 6.4-8.2 The [facility] Comment on above: Performed By: #### B CASTING MACHINE SET UP OPERATOR, CMP ####[facility] Lecqiwomoo4[address] [place], [place] [address]Dr. Swathi Reis Sodium [Moles/Vol] 139 mmol/L Normal 136-145 The [facility] Comment on above: Performed By: #### B CASTING MACHINE SET UP OPERATOR, CMP ####[facility] Gsacfahaqh6[address] [place], [place] [address]Dr. Swathi Reis Urea nitrogen [Mass/Vol] 26.0 mg/dL Critically high 7.0-18.0 The [facility] Comment on above: Performed By: #### B CASTING MACHINE SET UP OPERATOR, CMP ####[facility] Elvhuyhfax[address] [place], [place] [address]Dr. Swathi Reis Urea nitrogen/Creatinine [Mass ratio] 17.0 mg/mg Normal The [facility] Comment on above: Performed By: #### B CASTING MACHINE SET UP OPERATOR, CMP ####[facility] Spvnxolatb[address] [place], [place] [address]Dr. Swathi Reis BNPon 08-22-2022 Natriuretic peptide B (Bld) [Mass/Vol] 3439.0 pg/mL Critically high <=1,800.0 The [facility] Comment on above: Performed By: #### C MP, BNP ####[facility] Dhsfkdaibu[address] [place], [place] [address]Dr. Swathi Reis CBC AUTO DIFFon 08-22-2022 BASO # 0.1 103/ul Normal 0.0-0.1 [facility] Comment on above: Performed By: #### C BC ####[facility] Bqxskavqvp[address] [place], [place] [address]Dr. Swathi Chato Basophils/100 WBC (Bld) 0.6 % Normal 0.2-2.0 The [facility] Comment on above: Performed By: #### C BC ####[facility] Aqnjqftjmn8369 [place] [address]Dr. Swathi Reis EO # 0.3 103/ul Normal 0.0-0.7 [facility] Comment on above: Performed By: #### C BC ####[facility] Sqpdmafzuc8767 [place] [address]DrOtto Swathi Reis Eosinophils/100 WBC (Bld) 2.1 % Normal 0.9-7.0 [facility] Comment on above: Performed By: #### C BC ####[facility] Glkhtwddxj1188 [place] [address]Dr. Swathi Reis Erythrocyte distribution width (RBC) [Ratio] 13.8 % Normal 11.0-15.0 [facility] Comment on above: Performed By: #### C BC ####[facility] Wgsfzmxzjb[address] [place], [place] [address]Dr. Swathi Reis Hematocrit (Bld) [Volume fraction] 31.9 % Critically low 36.0-48.0 [facility] Comment on above: Performed By: #### C BC ####[facility] Wtzbqxkknq[address] [place], [place] [address]Dr. Swathi Reis Hemoglobin (Bld) [Mass/Vol] 10.2 g/dL Critically low 12.0-16.0 [facility] Comment on above: Performed By: #### C BC ####[facility] Chzjxuuetx[address] [place], [place] [address]Dr. Swathi Reis IG # 0.10 10e3/ul Critically high 0.00-0.03 [facility] Comment on above: Performed By: #### C BC ####[facility] Ecsjakjnpj[address] [place], [place] [address]Dr. Swathi Reis IG % 0.8 % Critically high 0.0-0.5 [facility] Comment on above: Performed By: #### C BC ####[facility] Vtsghouxpk[address] [place], [place] [address]DrOtto Reis LYMPH # 1.2 103/ul Normal 1.2-3.8 [facility] Comment on above: Performed By: #### C BC ####[facility] Mbmvnlrtzu5585 [place] [address]Dr. Swathi Chato Lymphocytes/100 WBC (Bld) 9.6 % Critically low 20.5-60.0 [facility] Comment on above: Performed By: #### C BC ####[facility] Swndcyosqz7434 [place] [address]Dr. Swathi Reis MANUAL DIFF REQ NO Normal [facility] Comment on above: Performed By: #### C BC ####[facility] Nunctqagst[address] [place] [id number]. Swathi Reis MCH (RBC) [Entitic mass] 28.7 pg Normal 26.7-34.0 The [facility] Comment on above: Performed By: #### C BC ####[facility] [address]wjngikyfk[address] [place], [place] [address]Dr. Swathi Reis MCHC (RBC) [Mass/Vol] 32.0 g/dL Normal 29.9-35.2 [facility] Comment on above: Performed By: #### C BC ####[facility] Hdxbcwfiyw[address] [place], [place] [address]Dr. Swathi Reis MCV (RBC) [Entitic vol] 89.9 fL Normal 81.0-99.0 [facility] Comment on above: Performed By: #### C BC ####[facility] [address] [place] [address]Dr. Swathi Reis MONO # 1.0 103/ul Critically high 0.3-0.8 [facility] Comment on above: Performed By: #### C BC ####[facility] Hzxtedonvk[address] [place], [place] [address]Dr. Swathi Reis Monocytes/100 WBC (Bld) 8.5 % Normal 1.7-12.0 [facility] Comment on above: Performed By: #### C BC ####[facility] [address]vahibemef[address] [place] [address]Dr. Swathi Reis NEUT # 9.6 103/ul Critically high 1.4-6.5 [facility] Comment on above: Performed By: #### C BC ####[facility] Ezeobgoksa[address] [place] [address]Dr. Swathi Reis Neutrophils/100 WBC (Bld) 78.4 % Critically high 43.0-75.0 [facility] Comment on above: Performed By: #### C BC ####[facility] Yiwkrtdgpl[address] [place] [address]Dr. Swathi Chato Platelet mean volume (Bld) [Entitic vol] 10.4 fL Normal 9.5-13.5 [facility] Comment on above: Performed By: #### C BC ####[facility] Jnieblcfvq30[address] [place] [address]Dr. Swathi Chato PLT 338 103/ul Normal 150-450 [facility] Comment on above: Performed By: #### C BC ####[facility] Khqdayumad[address] [place] [address]Dr. Swathi Reis RBC 3.55 106/ul Critically low 4.20-5.40 [facility] Comment on above: Performed By: #### C BC ####[facility] Qdcqxlfoin[address] [place], [place] [address]Dr. Swathi Chato WBC 12.2 103/ul Critically high 4.0-11.0 [facility] Comment on above: Performed By: #### C BC ####[facility] Tzyuncadgw[address] [place] [id number]. Swathi Reis DIGOXINon 08-22-2022 DIG 1.5 ng/mL Normal 0.9-2.0 [facility] Comment on above: Performed By: #### D IG ####[facility] Ywohlziasv[address] [place], [place] [address]Dr. Swathi Reis POINT OF CARE GLUCOSEon 07-26 Glucose [Mass/Vol] 222 mg/dL Critically high 74-106 T [facility] Comment on above: Performed By: #### P OCGLUC ####[facility] Wgxlhbcrgg96[address] [place], [place] [address]Dr. Swathi Reis Glucose [Mass/Vol] 133 mg/dL Critically high 74-106 [facility] Comment on above: Performed By: #### P OCGLUC ####[facility] Ejtgkfbaem[address] [place] [address]Dr. Swathi Reis Glucose [Mass/Vol] 299 mg/dL Critically high 74-106 [facility] Comment on above: Performed By: #### P OCGLUC ####[facility] Yuateqznpy[address] [place] [address]Dr. Swathi Reis Glucose [Mass/Vol] 151 mg/dL Critically high 74-106 [facility] Comment on above: Performed By: #### P OCGLUC ####[facility] Ndseobwuwg[address] [place], [place] [address]Dr. Swathi Reis PROF 14(COMP METB)on 022 Albumin [Mass/Vol] 2.4 g/dL Critically low 3.4-5.0 Th [facility] Comment on above: Performed By: #### C MP, BNP ####[facility] Mteohlkyfn[address] [place], [place] [address]Dr. Inessatracy Chato Albumin/Globulin [Mass ratio] 0.6 {ratio} Normal [facility] Comment on above: Performed By: #### C MP, BNP ####[facility] Fotelrsxur13[address] [place], [place] [address]Dr. Inessatracy Chato ALP [Catalytic activity/Vol] 98 U/L Normal 46-116 [facility] Comment on above: Performed By: #### C MP, BNP ####[facility] Kzzdmuozun9[address] [place], [place] [address]Dr. Inessatracy Chato ALT [Catalytic activity/Vol] 13 U/L Critically low 14-59 [facility] Comment on above: Performed By: #### C MP, BNP ####[facility] Zobcrmxrcu41[address] [place], [place] [address]Dr. Swathi Reis Anion gap [Moles/Vol] 12.4 mmol/L Normal [facility] Comment on above: Performed By: #### C MP, BNP ####[facility] Jdttujdlhi259[address] [place], [place] [address]Dr. Swathi Resi AST [Catalytic activity/Vol] 23 U/L Normal 15-37 [facility] Comment on above: Performed By: #### C MP, BNP ####[facility] Wbedivogva38[address] [place] [address]Dr. Swathi Reis Bilirubin [Mass/Vol] 0.6 mg/dL Normal 0.2-1.0 [facility] Comment on above: Performed By: #### C MP, BNP ####[facility] Wbxoltonrz[address] [place], [place] [address]Dr. Swathi Reis Calcium [Mass/Vol] 8.9 mg/dL Normal 8.5-10.1 [facility] Comment on above: Performed By: #### C MP, BNP ####[facility] Tgyiqbbvmh[address] [place], [place] [address]Dr. Swathi Reis Chloride [Moles/Vol] 100 mmol/L Normal 98-107 [facility] Comment on above: Performed By: #### C MP, BNP ####[facility] Bgluphgfjc183[address] [place], [place] [address]Dr. Swathi Reis CO2 [Moles/Vol] 30.6 mmol/L Normal 21.0-32.0 [facility] Comment on above: Performed By: #### C MP, BNP ####[facility] Xyjwpoafvs040[address] [place], [place] [address]Dr. Swathi Reis Creatinine [Mass/Vol] 1.54 mg/dL Critically high 0.55-1.02 [facility] Comment on above: Performed By: #### C MP, BNP ####[facility] Wpmiywfhzm69[address] [place], [place] [address]Dr. Swathi Reis EGFR-AF ARGENTINE 40 mL/min/1.73m2 Critically low >=60 [facility] Comment on above: Performed By: #### C MP, BNP ####[facility] Gdqptesuoz18[address] [place], [place] [address]Dr. Swathi Reis EGFR-NON AF ARGENTINE 33 mL/min/1.73m2 Critically low >=60 [facility] Comment on above: Performed By: #### C MP, BNP ####[facility] Zafdolkwnh80[address] [place] [id number]. Swathi Reis Globulin (S) [Mass/Vol] 3.9 g/dL Normal [facility] Comment on above: Performed By: #### C MP, BNP ####[facility] Usndnwxdav8200 [place] [address]Dr. Swathi Reis Glucose [Mass/Vol] 143 mg/dL Critically high 74-106 [facility] Comment on above: Performed By: #### C MP, BNP ####[facility] Pgjbamkooy2392 [place] [address]Dr. Swathi Resi Potassium [Moles/Vol] 4.0 mmol/L Normal 3.5-5.1 [facility] Comment on above: Performed By: #### C MP, BNP ####[facility] Kxytyesrrb[address] [place], [place] [address]Dr. Swathi Reis Protein [Mass/Vol] 6.3 g/dL Critically low 6.4-8.2 [facility] Comment on above: Performed By: #### C MP, BNP ####[facility] Cbrjbozrxb[address] [place], [place] [address]Dr. Swathi Reis Sodium [Moles/Vol] 139 mmol/L Normal 136-145 [facility] Comment on above: Performed By: #### C MP, BNP ####[facility] Xuadhuofgi[address] [place], [place] [address]Dr. Swathi Reis Urea nitrogen [Mass/Vol] 27.0 mg/dL Critically high 7.0-18.0 [facility] Comment on above: Performed By: #### C MP, BNP ####[facility] Tsihnazfwp[address] [place], [place] [address]Dr. Swathi Reis Urea nitrogen/Creatinine [Mass ratio] 17.5 mg/mg Normal [facility] Comment on above: Performed By: #### C MP, BNP ####[facility] Ipcohxacdk[address] [place] [address]Dr. Swathi Reis VANCOMYCIN TROUGHon 11-30-20 22 VANCOMYCIN TROUGH 13.2 ug/ml Normal 5.0-20.0 [facility] Comment on above: Performed By: #### V ANCT ####[facility] Ieiyguahpx[address] [place], [place] [address]Dr. Swathi Reis XR CHEST 2 Von 08-22-2022 XR CHEST 2 V Normal [facility] BNPon 08-21-2022 Natriuretic peptide B (Bld) [Mass/Vol] 3683.0 pg/mL Critically high <=1,800.0 [facility] Comment on above: Performed By: #### C MP, BNP ####[facility] Fzkzjphret[address] [place], [place] [address]Dr. Swathi Reis CBC AUTO DIFFon 08-21-2022 BASO # 0.1 103/ul Normal 0.0-0.1 [facility] Comment on above: Performed By: #### C BC ####[facility] Ktvvuumyst[address] [place], [place] [address]Dr. Swathi Reis Basophils/100 WBC (Bld) 0.4 % Normal 0.2-2.0 [facility] Comment on above: Performed By: #### C BC ####[facility] Szmmfoffmj[address] [place], [place] [address]Dr. Swathi Reis EO # 0.2 103/ul Normal 0.0-0.7 [facility] Comment on above: Performed By: #### C BC ####[facility] Zkmrligttg8[address] [place], [place] [address]Dr. Swathi Reis Eosinophils/100 WBC (Bld) 1.8 % Normal 0.9-7.0 [facility] Comment on above: Performed By: #### C BC ####[facility] Nrpabvjvux[address] [place], [place] [address]Dr. Swathi Reis Erythrocyte distribution width (RBC) [Ratio] 14.4 % Normal 11.0-15.0 [facility] Comment on above: Performed By: #### C BC ####[facility] Yzkhopfzok[address] [place], [place] [address]Dr. Swathi Reis Hematocrit (Bld) [Volume fraction] 33.5 % Critically low 36.0-48.0 [facility] Comment on above: Performed By: #### C BC ####[facility] Omoquoaihi[address] [place] [address]Dr. Swathi Reis Hemoglobin (Bld) [Mass/Vol] 10.8 g/dL Critically low 12.0-16.0 [facility] Comment on above: Performed By: #### C BC ####[facility] Oqjcuuelci[address] [place] [address]Dr. Swathi Reis IG # 0.06 10e3/ul Critically high 0.00-0.03 [facility] Comment on above: Performed By: #### C BC ####[facility] Iktgjreumc40[address] [place] [address]Dr. Swathi Reis IG % 0.5 % Normal 0.0-0.5 [facility] Comment on above: Performed By: #### C BC ####[facility] Bdinsyaptk[address] [place] [address]Dr. Swathi Chato LYMPH # 0.9 103/ul Critically low 1.2-3.8 [facility] Comment on above: Performed By: #### C BC ####[facility] Czrhkrrknu9[address] [place] [address]Dr. Swathi Chato Lymphocytes/100 WBC (Bld) 7.2 % Critically low 20.5-60.0 [facility] Comment on above: Performed By: #### C BC ####[facility] Mmyhzbyexw35[address] [place] [address]Dr. Swathi Chato MANUAL DIFF REQ NO Normal [facility] Comment on above: Performed By: #### C BC ####[facility] Qxcnphbcxg4320 [place] [id number]. Swathi Reis MCH (RBC) [Entitic mass] 29.0 pg Normal 26.7-34.0 [facility] Comment on above: Performed By: #### C BC ####[facility] Jlydzsmafo6793 [place] [address]Dr. Swathi Reis MCHC (RBC) [Mass/Vol] 32.2 g/dL Normal 29.9-35.2 [facility] Comment on above: Performed By: #### C BC ####[facility] Polwjjngwf2776 [place] [address]Dr. Swathi Reis MCV (RBC) [Entitic vol] 90.1 fL Normal 81.0-99.0 [facility] Comment on above: Performed By: #### C BC ####[facility] Hnunqrkwsp0082 [place] [address]Dr. Swathi Reis MONO # 0.8 103/ul Normal 0.3-0.8 [facility] Comment on above: Performed By: #### C BC ####[facility] Gytuymrcat7336 [place] [address]Dr. Swathi Reis Monocytes/100 WBC (Bld) 6.3 % Normal 1.7-12.0 [facility] Comment on above: Performed By: #### C BC ####[facility] Fgcxozbxja[address] [place], [place] [address]Dr. Swathi Reis NEUT # 10.7 103/ul Critically high 1.4-6.5 The [facility] Comment on above: Performed By: #### C BC ####[facility] Jvuhijyimi7344 [place] [address]Dr. Swathi Reis Neutrophils/100 WBC (Bld) 83.8 % Critically high 43.0-75.0 [facility] Comment on above: Performed By: #### C BC ####[facility] Icmddrhbiw9678 [place] [id number]. Swathi Reis Platelet mean volume (Bld) [Entitic vol] 10.7 fL Normal 9.5-13.5 [facility] Comment on above: Performed By: #### C BC ####[facility] Hqunuojfpn9437 [place] [address]Dr. Swathi Reis PLT 324 103/ul Normal 150-450 [facility] Comment on above: Performed By: #### C BC ####[facility] Khvelogpsl3279 [place] [address]Dr. Inessatracy Chato RBC 3.72 106/ul Critically low 4.20-5.40 The [facility] Comment on above: Performed By: #### C BC ####[facility] Enorhqiipo86[address] [place] [address]Dr. Swathi Reis WBC 12.8 103/ul Critically high 4.0-11.0 [facility] Comment on above: Performed By: #### C BC ####[facility] Obtbbaaqha[address] [place] [address]Dr. Swathi Reis DIGOXINon 08-21-2022 DIG 1.3 ng/mL Normal 0.9-2.0 [facility] Comment on above: Performed By: #### D IG ####[facility] Guhbcitupn[address] [place] [address]Dr. Swathi Reis POINT OF CARE GLUCOSEon 07-25 Glucose [Mass/Vol] 129 mg/dL Critically high 74-106 [facility] Comment on above: Performed By: #### P OCGLUC ####[facility] Ebfnyhtjej2083 [place] [address]Dr. Swathi Reis Glucose [Mass/Vol] 145 mg/dL Critically high 74-106 [facility] Comment on above: Performed By: #### P OCGLUC ####[facility] Boxvjcmnkw[address] [place], [place] [address]Dr. Swathi Reis Glucose [Mass/Vol] 366 mg/dL Critically high -106 [facility] Comment on above: Performed By: #### P OCGLUC ####[facility] Civlfwwssw1806 [place] [address]Dr. Swathi Reis Glucose [Mass/Vol] 149 mg/dL Critically high 74-106 [facility] Comment on above: Performed By: #### P OCGLUC ####[facility] Kpedfsjvlt84[address] [place], [place] [address]Dr. Swathi Chato PROF 14(COMP METB)on 022 Albumin [Mass/Vol] 2.4 g/dL Critically low 3.4-5.0 [facility] Comment on above: Performed By: #### C MP, BNP ####[facility] Bpfdjloqlg[address] [place], [place] [address]Dr. Swathi Reis Albumin/Globulin [Mass ratio] 0.5 {ratio} Normal [facility] Comment on above: Performed By: #### C MP, BNP ####[facility] Qyphnokxff8073 [place] [address]Dr. Swathi Reis ALP [Catalytic activity/Vol] 93 U/L Normal 46-116 [facility] Comment on above: Performed By: #### C MP, BNP ####[facility] Hflxtdrkhy7975 [place] [address]Dr. Swathi Reis ALT [Catalytic activity/Vol] 11 U/L Critically low 14-59 [facility] Comment on above: Performed By: #### C MP, BNP ####[facility] Aprudpcmpp[address] [place], [place] [address]Dr. Swathi Reis Anion gap [Moles/Vol] 9.8 mmol/L Normal [facility] Comment on above: Performed By: #### C MP, BNP ####[facility] Yigjjmjsla7[address] [place], [place] [address]Dr. Swathi Reis AST [Catalytic activity/Vol] 14 U/L Critically low 15-37 [facility] Comment on above: Performed By: #### C MP, BNP ####[facility] Urpaaecboi[address] [place], [place] [address]Dr. Swathi Reis Bilirubin [Mass/Vol] 0.6 mg/dL Normal 0.2-1.0 [facility] Comment on above: Performed By: #### C MP, BNP ####[facility] Lvgealketn[address] [place], [place] [address]Dr. Swathi Reis Calcium [Mass/Vol] 9.4 mg/dL Normal 8.5-10.1 [facility] Comment on above: Performed By: #### C MP, BNP ####[facility] Vezcgyhgcd[address] [place], [place] [address]Dr. Swathi Reis Chloride [Moles/Vol] 102 mmol/L Normal 98-107 [facility] Comment on above: Performed By: #### C MP, BNP ####[facility] Devjsrbaov8[address] [place], [place] [address]Dr. Swathi Reis CO2 [Moles/Vol] 33.4 mmol/L Critically high 21.0-32.0 [facility] Comment on above: Performed By: #### C MP, BNP ####[facility] Xggihonywx9[address] [place] [address]Dr. Swathi Reis Creatinine [Mass/Vol] 1.79 mg/dL Critically high 0.55-1.02 [facility] Comment on above: Performed By: #### C MP, BNP ####[facility] Lgyndcqcgr[address] [place], [place] [address]Dr. Swathi Reis EGFR-AF ARGENTINE 33 mL/min/1.73m2 Critically low >=60 [facility] Comment on above: Performed By: #### C MP, BNP ####[facility] Snhgkxeozl7[address] [place], [place] [address]Dr. Swathi Reis EGFR-NON AF ARGENTINE 27 mL/min/1.73m2 Critically low >=60 [facility] Comment on above: Performed By: #### C MP, BNP ####[facility] Vuixoahbnm[address] [place], [place] [address]Dr. Swathi Reis Globulin (S) [Mass/Vol] 4.9 g/dL Normal [facility] Comment on above: Performed By: #### C MP, BNP ####[facility] Tjebamopyw[address] [place], [place] [address]Dr. Swathi Reis Glucose [Mass/Vol] 121 mg/dL Critically high 74-106 T [facility] Comment on above: Performed By: #### C MP, BNP ####[facility] Ehljqvhjki7[address] [place], [place] [address]Dr. Swathi Reis Potassium [Moles/Vol] 3.2 mmol/L Critically low 3.5-5.1 [facility] Comment on above: Performed By: #### C MP, BNP ####[facility] Bleevmmjbd[address] [place], [place] [address]Dr. Swathi Reis Protein [Mass/Vol] 7.3 g/dL Normal 6.4-8.2 The [facility] Comment on above: Performed By: #### C MP, BNP ####[facility] Xyuzqbrnme[address] [place], [place] [address]Dr. Swathi Reis Sodium [Moles/Vol] 142 mmol/L Normal 136-145 The [facility] Comment on above: Performed By: #### C MP, BNP ####[facility] Vibttnzdhp[address] [place], [place] [address]Dr. Swathi Reis Urea nitrogen [Mass/Vol] 32.0 mg/dL Critically high 7.0-18.0 [facility] Comment on above: Performed By: #### C MP, BNP ####[facility] Ngwbujjahy[address] [place], [place] [address]Dr. Swathi Reis Urea nitrogen/Creatinine [Mass ratio] 17.9 mg/mg Normal [facility] Comment on above: Performed By: #### C MP, BNP ####[facility] Cabidmwxeg[address] [place], [place] [address]Dr. Swathi Reis BNPon 08-20-2022 Natriuretic peptide B (Bld) [Mass/Vol] 7302.0 pg/mL Critically high <=1,800.0 [facility] Comment on above: Performed By: #### C MP, BNP ####[facility] Rjwayyiavr6[address] [place], [place] [address]Dr. Swathi Reis C. DIFF PCRon 08-20-2022 C. DIFFICILE PCR Positive Critically abnormal NEGATIVE [facility] Comment on above: Performed By: #### C DIFPOC ####[facility] Koyioaybtc[address] [place], [place] [address]Dr. Swathi Reis CBC AUTO DIFFon 08-20-2022 BASO # 0.1 103/ul Normal 0.0-0.1 [facility] Comment on above: Performed By: #### C BC ####[facility] Jliwvshatk[address] [place], [place] [address]Dr. Swathi Reis Basophils/100 WBC (Bld) 0.5 % Normal 0.2-2.0 [facility] Comment on above: Performed By: #### C BC ####[facility] Dhmbsjbefn[address] [place], [place] [address]Dr. Swathi Reis EO # 0.1 103/ul Normal 0.0-0.7 [facility] Comment on above: Performed By: #### C BC ####[facility] Cspnzoyfzd2903 [place] [address]Dr. Swathi Reis Eosinophils/100 WBC (Bld) 0.3 % Critically low 0.9-7.0 [facility] Comment on above: Performed By: #### C BC ####[facility] Tvqmofygez[address] [place], [place] [address]Dr. Swathi Reis Erythrocyte distribution width (RBC) [Ratio] 14.5 % Normal 11.0-15.0 [facility] Comment on above: Performed By: #### C BC ####[facility] Bwoukesfai[address] [place], [place] [address]Dr. Swathi Reis Hematocrit (Bld) [Volume fraction] 31.4 % Critically low 36.0-48.0 [facility] Comment on above: Performed By: #### C BC ####[facility] Eymfohzqfr0[address] [place], [place] [address]Dr. Swathi Reis Hemoglobin (Bld) [Mass/Vol] 10.3 g/dL Critically low 12.0-16.0 The [facility] Comment on above: Performed By: #### C BC ####[facility] Xkjebcqjpp25[address] [place], [place] [address]Dr. Inessatracy Chato IG # 0.12 10e3/ul Critically high 0.00-0.03 The [facility] Comment on above: Performed By: #### C BC ####[facility] Jpkqtffqrz[address] [place], [place] [address]Dr. Inessatracy Chato IG % 0.7 % Critically high 0.0-0.5 The [facility] Comment on above: Performed By: #### C BC ####[facility] Wnvrtveott5[address] [place], [place] [address]Dr. Inessatracy Chato LYMPH # 0.9 103/ul Critically low 1.2-3.8 The [facility] Comment on above: Performed By: #### C BC ####[facility] Bsmktkfafp[address] [place], [place] [address]Dr. Swathi Reis Lymphocytes/100 WBC (Bld) 5.6 % Critically low 20.5-60.0 The [facility] Comment on above: Performed By: #### C BC ####[facility] Lhpwzowhfb[address] [place] [address]Dr. Swathi Reis MANUAL DIFF REQ NO Normal The [facility] Comment on above: Performed By: #### C BC ####[facility] Vwtklkibvt[address] [place] [address]Dr. Swathi Reis MCH (RBC) [Entitic mass] 29.3 pg Normal 26.7-34.0 [facility] Comment on above: Performed By: #### C BC ####[facility] [address]jgnlbfjsv[address] [place], [place] [address]Dr. Swathi Reis MCHC (RBC) [Mass/Vol] 32.8 g/dL Normal 29.9-35.2 [facility] Comment on above: Performed By: #### C BC ####[facility] Eghjnndafx[address] [place], [place] [address]Dr. Swathi Reis MCV (RBC) [Entitic vol] 89.5 fL Normal 81.0-99.0 [facility] Comment on above: Performed By: #### C BC ####[facility] Hvdpbyylvk[address] [place], [place] [address]Dr. Swathi Reis MONO # 0.9 103/ul Critically high 0.3-0.8 The [facility] Comment on above: Performed By: #### C BC ####[facility] Ifuyxtjflp[address] [place], [place] [address]Dr. Swathi Reis Monocytes/100 WBC (Bld) 5.6 % Normal 1.7-12.0 [facility] Comment on above: Performed By: #### C BC ####[facility] Fnprmhwjgz[address] [place], [place] [address]DrOtto Reis NEUT # 14.1 103/ul Critically high 1.4-6.5 The [facility] Comment on above: Performed By: #### C BC ####[facility] Swpwbqezqr[address] [place], [place] [address]Dr. Swathi Reis Neutrophils/100 WBC (Bld) 87.3 % Critically high 43.0-75.0 [facility] Comment on above: Performed By: #### C BC ####[facility] Yvmcxvolzz15[address] [place] [address]Dr. Swathi Reis Platelet mean volume (Bld) [Entitic vol] 10.8 fL Normal 9.5-13.5 [facility] Comment on above: Performed By: #### C BC ####[facility] Xiilclvnen4[address] [place] [address]Dr. Swathi Reis PLT 303 103/ul Normal 150-450 [facility] Comment on above: Performed By: #### C BC ####[facility] Gmeuastbhf4572 [place] [address]Dr. Swathi Reis RBC 3.51 106/ul Critically low 4.20-5.40 The [facility] Comment on above: Performed By: #### C BC ####[facility] [address]itbfsai[address] [place], [place] [address]Dr. Swathi Reis WBC 16.2 103/ul Critically high 4.0-11.0 [facility] Comment on above: Performed By: #### C BC ####[facility] Blfwaousgs[address] [place], [place] [address]Dr. Swathi Reis DIGOXINon 08-20-2022 DIG 1.2 ng/mL Normal 0.9-2.0 [facility] Comment on above: Performed By: #### D IG ####[facility] Elweeeevfk[address] [place], [place] [address]Dr. Swathi Reis POINT OF CARE GLUCOSEon - Glucose [Mass/Vol] 180 mg/dL Critically high 74-106 [facility] Comment on above: Performed By: #### P OCGLUC ####[facility] Bxtrixvizj[address] [place], [place] [address]Dr. Swathi Reis Glucose [Mass/Vol] 115 mg/dL Critically high 74-106 [facility] Comment on above: Performed By: #### P OCGLUC ####[facility] Wgrvqomvds[address] [place], [place] [address]Dr. Swathi Reis Glucose [Mass/Vol] 235 mg/dL Critically high 74-106 [facility] Comment on above: Performed By: #### P OCGLUC ####[facility] Rgjiftnwas19[address] [place], [place] [address]Dr. Swathi Reis PROF 14(COMP METB)on 022 Albumin [Mass/Vol] 2.5 g/dL Critically low 3.4-5.0 [facility] Comment on above: Performed By: #### C MP, BNP ####[facility] Zabvyhpwlo[address] [place], [place] [address]Dr. Swathi Reis Albumin/Globulin [Mass ratio] 0.6 {ratio} Normal [facility] Comment on above: Performed By: #### C MP, BNP ####[facility] Mtplkddmxu[address] [place], [place] [address]Dr. Swathi Reis ALP [Catalytic activity/Vol] 69 U/L Normal 46-116 [facility] Comment on above: Performed By: #### C MP, BNP ####[facility] Ghefqzjdlm[address] [place], [place] [address]Dr. Swathi Reis ALT [Catalytic activity/Vol] 11 U/L Critically low 14-59 [facility] Comment on above: Performed By: #### C MP, BNP ####[facility] Xhwaskkxht[address] [place], [place] [address]Dr. Swathi Reis Anion gap [Moles/Vol] 11.7 mmol/L Normal [facility] Comment on above: Performed By: #### C MP, BNP ####[facility] Mxwwzyfsqo[address] [place], [place] [address]Dr. Swathi Reis AST [Catalytic activity/Vol] 18 U/L Normal 15-37 [facility] Comment on above: Performed By: #### C MP, BNP ####[facility] Eglmoiltdw[address] [place], [place] [address]Dr. Swathi Reis Bilirubin [Mass/Vol] 1.0 mg/dL Normal 0.2-1.0 [facility] Comment on above: Performed By: #### C MP, BNP ####[facility] [address]ehta[address] [place] [address]Dr. Swathi Reis Calcium [Mass/Vol] 9.2 mg/dL Normal 8.5-10.1 [facility] Comment on above: Performed By: #### C MP, BNP ####[facility] Gqszoclwxu98[address] [place] [address]Dr. Swathi Reis Chloride [Moles/Vol] 104 mmol/L Normal 98-107 [facility] Comment on above: Performed By: #### C MP, BNP ####[facility] Xwwmlooodf9[address] [place] [address]Dr. Swathi Reis CO2 [Moles/Vol] 32.7 mmol/L Critically high 21.0-32.0 [facility] Comment on above: Performed By: #### C MP, BNP ####[facility] Kqfizdjgxa[address] [place], [place] [address]Dr. Swathi Reis Creatinine [Mass/Vol] 1.86 mg/dL Critically high 0.55-1.02 [facility] Comment on above: Performed By: #### C MP, BNP ####[facility] Ltkgkslxko[address] [place], [place] [address]Dr. Swathi Reis EGFR-AF ARGENTINE 32 mL/min/1.73m2 Critically low >=60 [facility] Comment on above: Performed By: #### C MP, BNP ####[facility] Mguyffgghy[address] [place], [place] [address]Dr. Swathi Reis EGFR-NON AF ARGENTINE 26 mL/min/1.73m2 Critically low >=60 [facility] Comment on above: Performed By: #### C MP, BNP ####[facility] Cdkxxoztlh[address] [place], [place] [address]Dr. Swathi Reis Globulin (S) [Mass/Vol] 4.2 g/dL Normal [facility] Comment on above: Performed By: #### C MP, BNP ####[facility] Ynbvjrrbvx[address] [place], [place] [address]Dr. Swathi Chato Glucose [Mass/Vol] 135 mg/dL Critically high 74-106 [facility] Comment on above: Performed By: #### C MP, BNP ####[facility] Pwbqmwibro[address] [place] [address]Dr. Swathi Reis Potassium [Moles/Vol] 3.4 mmol/L Critically low 3.5-5.1 [facility] Comment on above: Performed By: #### C MP, BNP ####[facility] Jvqfwxsizi[address] [place], [place] [address]Dr. Swathi Reis Protein [Mass/Vol] 6.7 g/dL Normal 6.4-8.2 [facility] Comment on above: Performed By: #### C MP, BNP ####[facility] Hppzewxzwd80[address] [place], [place] [address]Dr. Swathi Reis Sodium [Moles/Vol] 145 mmol/L Normal 136-145 [facility] Comment on above: Performed By: #### C MP, BNP ####[facility] Rqdqsbiiip87[address] [place], [place] [address]Dr. Swathi Reis Urea nitrogen [Mass/Vol] 29.0 mg/dL Critically high 7.0-18.0 [facility] Comment on above: Performed By: #### C MP, BNP ####[facility] Vqfszoqpib[address] [place], [place] [address]Dr. Swathi Reis Urea nitrogen/Creatinine [Mass ratio] 15.6 mg/mg Normal [facility] Comment on above: Performed By: #### C MP, BNP ####[facility] Tpguihgnta7[address] [place], [place] [address]Dr. Swathi Reis XR CHEST 1 Von 08-20-2022 XR CHEST 1 V Normal [facility] BLOOD GASES BTYon 08-19-2022 02 MODE BIPAP Normal [facility] Comment on above: Performed By: #### A BG ####[facility] Hvbosgabag[address] [place], [place] [address]Dr. Swathi Reis ALLENS TEST Positive Normal [facility] Comment on above: Performed By: #### A BG ####[facility] Zbstagzqwt4[address] [place], [place] [address]Dr. Swathi Reis Base excess Calc (Bld) [Moles/Vol] 0.8 mmol/L Normal -2.0-2.0 [facility] Comment on above: Performed By: #### A BG ####[facility] [address]qtvmptvrn[address] [place] [address]Dr. Swathi Reis BIPAP PRESSURE 12/6 Normal [facility] Comment on above: Performed By: #### A BG ####[facility] Pueybeusmm[address] [place] [address]Dr. Swathi Reis CPAP Normal [facility] Comment on above: Performed By: #### A BG ####[facility] Ghfjrpeydk6[address] [place], [place] [address]Dr. Swathi Reis FIO2 90.00 % Normal [facility] Comment on above: Performed By: #### A BG ####[facility] Yfotdmzjhh[address] [place], [place] [address]Dr. Swathi Reis HCO3 (Bld) [Moles/Vol] 25.9 mmol/L Normal 22.0-26.0 [facility] Comment on above: Performed By: #### A BG ####[facility] Wquqiinszq[address] [place], [place] [address]Dr. Swathi Reis LPM Normal [facility] Comment on above: Performed By: #### A BG ####[facility] Pwekzjpbxt[address] [place], [place] [address]Dr. Sawthi Reis MINUTE VOLUME Normal [facility] Comment on above: Performed By: #### A BG ####[facility] Xfjuuegewz[address] [place], [place] [address]Dr. Swathi Reis Oxygen (Bld) [Partial pressure] 95.0 mm[Hg] Normal 80.0-100.0 [facility] Comment on above: Performed By: #### A BG ####[facility] Vanjbfkvgk[address] [place], [place] [address]Dr. Swathi Reis Oxygen saturation in Blood 97.7 % Normal 95.0-100.0 [facility] Comment on above: Performed By: #### A BG ####[facility] Fqgtpugtvu5[address] [place], [place] [address]Dr. Swathi Reis PCO2 44.2 mmHg Normal 35.0-45.0 [facility] Comment on above: Performed By: #### A BG ####[facility] [address]ql[address]wjci[address] [place] [address]Dr. Swathi Reis PEEP [facility] Comment on above: Performed By: #### A BG ####[facility] Epmpguxqkc9[address] [place] [address]Dr. Swathi Reis pH (Bld) 7.377 [pH] Normal 7.350-7.450 [facility] Comment on above: Performed By: #### A BG ####[facility] Okvsvliprx4[address] [place] [address]Dr. Swathi Reis PIP [facility] Comment on above: Performed By: #### A BG ####[facility] Lnktlqferc4[address] [place] [address]Dr. Swathi Reis PS [facility] Comment on above: Performed By: #### A BG ####[facility] Bdlnzjuxps[address] [place] [address]Dr. Swathi Reis PUNCTURE SITE RR Normal [facility] Comment on above: Performed By: #### A BG ####[facility] Zmszvzlbgj60[address] [place] [address]Dr. Swathi Reis RATE [facility] Comment on above: Performed By: #### A BG ####[facility] Njwfvrzwyn[address] [place] [address]Dr. Swathi Reis VENT MODE [facility] Comment on above: Performed By: #### A BG ####[facility] Wkpujubyvv4[address] [place] [address]Dr. Swathi Reis [place] [facility] Comment on above: Performed By: #### A BG ####[facility] Zkoiigdnve[address] [place], [place] [address]Dr. Swathi Reis BNPon 08-19-2022 Natriuretic peptide B (Bld) [Mass/Vol] 2862.0 pg/mL Critically high <=1,800.0 [facility] Comment on above: Performed By: #### L IPA, BNP ####[facility] [address] [place] [address]Dr. Swathi Reis CARDIAC TRINA 3-6on 2 CK [Catalytic activity/Vol] 25 U/L Critically low 26-192 [facility] Comment on above: Performed By: #### C MREP ####[facility] [address]icizjudxb[address] [place] [address]Dr. Swathi Reis CK.MB [Mass/Vol] 0.57 ng/mL Normal <=3.60 [facility] Comment on above: Performed By: #### C MREP ####[facility] Eiqogrpgnp[address] [place] [address]Dr. Swathi Reis HSTROP 16.6 pg/mL Normal 4.0-51.3 [facility] Comment on above: Result Comment: CUT- OFF POINTS HAVE BEEN ESTABLISHED BASED ON THE FOURTH UNIVERSAL DEFINITIONS OF MYOCARDIALINFARCTION. THE UPPER REFERENCE LIMIT (URL) OF TROPONIN, DEFINED THE 99TH PERCENTILE OFcTnI DISTRIBUTION IN A REFERENCE POPULATION, HAS BEEN CONFIRMED THE DECISION THRESHOLDFOR [place] DIAGNOSIS. Performed By: #### C MREP ####[facility] [address]mmwo[address] [place] [address]Dr. Swathi Reis CK [Catalytic activity/Vol] 26 U/L Normal 26-192 [facility] Comment on above: Performed By: #### C MREP ####[facility] Irczensbrw3676 [place] [address]Dr. Swathi Reis CK.MB [Mass/Vol] 0.59 ng/mL Normal <=3.60 [facility] Comment on above: Performed By: #### C MREP ####[facility] Vqliswadwl1798 [place] [address]Dr. Swathi Reis HSTROP 16.3 pg/mL Normal 4.0-51.3 [facility] Comment on above: Result Comment: CUT- OFF POINTS HAVE BEEN ESTABLISHED BASED ON THE FOURTH UNIVERSAL DEFINITIONS OF MYOCARDIALINFARCTION. THE UPPER REFERENCE LIMIT (URL) OF TROPONIN, DEFINED THE 99TH PERCENTILE OFcTnI DISTRIBUTION IN A REFERENCE POPULATION, HAS BEEN CONFIRMED THE DECISION THRESHOLDFOR [place] DIAGNOSIS. Performed By: #### C MREP ####[facility] Emlyxebfpd75[address] [place] [address]Dr. Swathi Reis CBC AUTO DIFFon 08-19-2022 BASO # 0.1 103/ul Normal 0.0-0.1 [facility] Comment on above: Performed By: #### C BC ####[facility] Ugukvaivsv[address] [place] [address]Dr. Swathi Reis Basophils/100 WBC (Bld) 0.4 % Normal 0.2-2.0 [facility] Comment on above: Performed By: #### C BC ####[facility] Osymbyvvem[address] [place], [place] [address]Dr. Swathi Reis EO # 0.1 103/ul Normal 0.0-0.7 [facility] Comment on above: Performed By: #### C BC ####[facility] Rsrohdehbx[address] [place], [place] [address]Dr. Swathi Reis Eosinophils/100 WBC (Bld) 0.4 % Critically low 0.9-7.0 [facility] Comment on above: Performed By: #### C BC ####[facility] Pczjfkgzxw[address] [place], [place] [address]Dr. Swathi Reis Erythrocyte distribution width (RBC) [Ratio] 14.2 % Normal 11.0-15.0 [facility] Comment on above: Performed By: #### C BC ####[facility] Uvuofwqjiw[address] [place], [place] [address]Dr. Swathi Reis Hematocrit (Bld) [Volume fraction] 34.4 % Critically low 36.0-48.0 [facility] Comment on above: Performed By: #### C BC ####[facility] Uwxgxkxgyq[address] [place], [place] [address]Dr. Swathi Reis Hemoglobin (Bld) [Mass/Vol] 11.2 g/dL Critically low 12.0-16.0 [facility] Comment on above: Performed By: #### C BC ####[facility] Vcjybnypxk[address] [place], [place] [address]Dr. Swathi Reis IG # 0.08 10e3/ul Critically high 0.00-0.03 [facility] Comment on above: Performed By: #### C BC ####[facility] Pocfybmrxf4364 [place] [address]DrOtto Swathi Chato IG % 0.4 % Normal 0.0-0.5 [facility] Comment on above: Performed By: #### C BC ####[facility] Gnuhtcbtue[address] [place] [address]DrOtto Wylietracy Chato LYMPH # 0.8 103/ul Critically low 1.2-3.8 [facility] Comment on above: Performed By: #### C BC ####[facility] Zkfwwoocug9922 [place] [address]DrOtto Reis Lymphocytes/100 WBC (Bld) 4.1 % Critically low 20.5-60.0 [facility] Comment on above: Performed By: #### C BC ####[facility] Yezcjnjjgx[address] [place], [place] [address]DrOtto Reis MANUAL DIFF REQ NO Normal [facility] Comment on above: Performed By: #### C BC ####[facility] Fzarybekym[address] [place], [place] [address]DrOtto Wylietracy Chato MCH (RBC) [Entitic mass] 29.1 pg Normal 26.7-34.0 [facility] Comment on above: Performed By: #### C BC ####[facility] Uwwsnpthax4830 [place] [address]DrOtto Wylietracy Chato MCHC (RBC) [Mass/Vol] 32.6 g/dL Normal 29.9-35.2 [facility] Comment on above: Performed By: #### C BC ####[facility] Sm[address]qjdhnwy[address] [place], [place] [address]DrOtto Reis MCV (RBC) [Entitic vol] 89.4 fL Normal 81.0-99.0 [facility] Comment on above: Performed By: #### C BC ####[facility] Lqimnaqcqy[address] [place], [place] [address]DrOtto Reis MONO # 1.1 103/ul Critically high 0.3-0.8 The [facility] Comment on above: Performed By: #### C BC ####[facility] Xvjiaezqzv86[address] [place] [address]Dr. Swathi Reis Monocytes/100 WBC (Bld) 5.8 % Normal 1.7-12.0 [facility] Comment on above: Performed By: #### C BC ####[facility] Uckhdwbdhi8331 [place] [address]Dr. Swathi Reis NEUT # 16.4 103/ul Critically high 1.4-6.5 [facility] Comment on above: Performed By: #### C BC ####[facility] Hixwfuwynn7514 [place] [address]Dr. Swathi Reis Neutrophils/100 WBC (Bld) 88.9 % Critically high 43.0-75.0 [facility] Comment on above: Performed By: #### C BC ####[facility] Kzkardyijp0[address] [place] [address]Dr. Swathi Reis Platelet mean volume (Bld) [Entitic vol] 10.6 fL Normal 9.5-13.5 [facility] Comment on above: Performed By: #### C BC ####[facility] Myaolydjcy[address] [place] [address]Dr. Swathi Reis PLT 366 103/ul Normal 150-450 [facility] Comment on above: Performed By: #### C BC ####[facility] Hbxbfkqrpu0706 [place] [address]Dr. Swathi Reis RBC 3.85 106/ul Critically low 4.20-5.40 The [facility] Comment on above: Performed By: #### C BC ####[facility] Dunmjnhsjq01[address] [place] [address]Dr. Swathi Reis WBC 18.4 103/ul Critically high 4.0-11.0 The [facility] Comment on above: Performed By: #### C BC ####[facility] Vuxolomznj[address] [place] [address]Dr. Swathi Chato CTA CHEST WO W CONon 022 CTA CHEST WO W CON Normal [facility] CULTURE BLOODon 08-19-2022 Microscopic examination of blood, culture Culture Observations: NO GROWTH AT 5 DAYS. Normal The [facility] Comment on above: Performed By: #### B LDCX2 ####[facility] Dlueedrjin02[address] [place] [id number]. Swathi Reis Microscopic examination of blood, culture Culture Observations: NO GROWTH AT 5 DAYS. Normal [facility] Comment on above: Performed By: #### B LDCX1 ####[facility] Ewdwzpnzwg5466 [place] [address]Dr. Swathi Reis Covid-19 PCR (CVDTBH)on 07-25 SARS-CoV-2 (COVID-19) RNA ÓSCAR+probe Ql (Unsp spec) Not detected Normal NOT DETECTED The [facility] Comment on above: Result [...] for this test is supported by the [employer] and Human Service's declaration that [...] be used). Performed By: #### C VDTBH ####[facility] Bwxvkssuai8303 [place] [id number]. Swathi Reis Performed By: #### R SPLUS ####[facility] Wkhqcblbai7164 [place] [id number]. Swathi Reis LACTATE/LACTIC ACIDon 2021 Lactate [Moles/Vol] 1.5 mmol/L Normal 0.4-1.9 The [facility] Comment on above: Performed By: #### L ACT ####[facility] Vobdlcvzxa[address] [place], [place] [address]Dr. Swathi Reis LIPASEon 08-19-2022 Lipase [Catalytic activity/Vol] 130.0 U/L Normal 73.0-393.0 [facility] Comment on above: Performed By: #### L IPA, BNP ####[facility] Oyulgtjwin[address] [place], [place] [address]Dr. Swathi Reis POINT OF CARE GLUCOSEon 07-25 Glucose [Mass/Vol] 222 mg/dL Critically high 74-106 [facility] Comment on above: Performed By: #### P OCGLUC ####[facility] Tcrrgdjqyp[address] [place], [place] [address]Dr. Swathi Reis Glucose [Mass/Vol] 166 mg/dL Critically high 74-106 [facility] Comment on above: Performed By: #### P OCGLUC ####[facility] Rxmmmjpkuh[address] [place], [place] [address]Dr. Swathi Reis Glucose [Mass/Vol] 213 mg/dL Critically high 74-106 [facility] Comment on above: Performed By: #### P OCGLUC ####[facility] Ightgllmao[address] [place], [place] [address]Dr. Swathi Reis RESPIRATORY PANEL PLUSon Adenovirus Not detected Normal NOT DETECTED The [facility] Comment on above: Performed By: #### R SPLUS ####[facility] Nlgawrugal[address] [place], [place] [address]Dr. Swathi Reis B. Parapertusis Not detected Normal NOT DETECTED The [facility] Comment on above: Performed By: #### R SPLUS ####[facility] Vioxslytrr[address] [place], [place] [address]Dr. Swathi Reis B. Pertussis Not detected Normal NOT DETECTED The [facility] Comment on above: Performed By: #### R SPLUS ####[facility] Cnkcdizksf[address] [place], [place] [address]Dr. Inessatracy Reis Chlamydia Pneumoniae Not detected Normal NOT DETECTED The [facility] Comment on above: Performed By: #### R SPLUS ####[facility] Trznwquzac14[address] [place] [address]Dr. Yilan Reis Coronavirus 229E Not detected Normal NOT DETECTED [facility] Comment on above: Performed By: #### R SPLUS ####[facility] Bbpmhgpxun1551 [place] [address]Dr. Yilan Reis Coronavirus HKU1 Not detected Normal NOT DETECTED [facility] Comment on above: Performed By: #### R SPLUS ####[facility] Hxkwynrpae[address] [place], [place] [address]Dr. Yilan [facility] Coronavirus NL63 Not detected Normal NOT DETECTED [facility] Comment on above: Performed By: #### R SPLUS ####[facility] Jwqomkhgbo[address] [place], [place] [address]Dr. Yitracy [facility] Coronavirus OC43 Not detected Normal NOT DETECTED [facility] Comment on above: Performed By: #### R SPLUS ####[facility] Enirdvdhvt11[address] [place], [place] [address]Dr. Yilan Reis Influenza A H1 2009 Not detected Normal NOT DETECTED [facility] Comment on above: Performed By: #### R SPLUS ####[facility] Ngrfmgcnik39[address] [place], [place] [address]Dr. Yilan Reis Influenza A H3 Not detected Normal NOT DETECTED [facility] Comment on above: Performed By: #### R SPLUS ####[facility] Dhbirdmeew15[address] [place], [place] [address]Dr. Yilan Reis Influenza B Not detected Normal NOT DETECTED [facility] Comment on above: Performed By: #### R SPLUS ####[facility] Yhasmpbadt5[address] [place], [place] [address]Dr. Yilan Reis Metapneumovirus Not detected Normal NOT DETECTED [facility] Comment on above: Performed By: #### R SPLUS ####[facility] Towckzkcxk[address] [place], [place] [address]Dr. Swathi Reis Mycoplas. Pneumoniae Not detected Normal NOT DETECTED [facility] Comment on above: Performed By: #### R SPLUS ####[facility] Ldrfueuojn2433 [place] [address]Dr. Swathi Reis Parainfluenza 1 Not detected Normal NOT DETECTED [facility] Comment on above: Performed By: #### R SPLUS ####[facility] Tdjgapezsv[address] [place], [place] [address]Dr. Swathi Reis Parainfluenza 2 Not detected Normal NOT DETECTED [facility] Comment on above: Performed By: #### R SPLUS ####[facility] Vtzsmcpumz[address] [place], [place] [address]Dr. Swathi Reis Parainfluenza 3 Not detected Normal NOT DETECTED [facility] Comment on above: Performed By: #### R SPLUS ####[facility] Gzncribvoh[address] [place], [place] [address]Dr. Swathi Reis Parainfluenza 4 Not detected Normal NOT DETECTED The [facility] Comment on above: Performed By: #### R SPLUS ####[facility] Fwvbccyiau[address] [place], [place] [address]Dr. Swathi Reis Rhino/Enterovirus Not detected Normal NOT DETECTED [facility] Comment on above: Performed By: #### R SPLUS ####[facility] Embeplcaqa[address] [place], [place] [address]Dr. Swathi Chato RP2 Header 1 RESPIRATORY PANEL: VIRUSES Normal [facility] Comment on above: Performed By: #### R SPLUS ####[facility] Ttryacpctr[address] [place], [place] [address]Dr. Swathi Reis RP2 Header 2 RESPIRATORY PANEL: BACTERIA Normal [facility] Comment on above: Performed By: #### R SPLUS ####[facility] Odlqmujraq[address] [place], [place] [address]Dr. Swathi Reis RSV Not detected Normal NOT DETECTED [facility] Comment on above: Performed By: #### R SPLUS ####[facility] Siaehvdgho[address] [place], [place] [address]Dr. Inessatracy Reis XR CHEST 1 Von 08-19-2022 XR CHEST 1 V Normal [facility] BNPon 08-18-2022 Natriuretic peptide B (Bld) [Mass/Vol] 2955.0 pg/mL Critically high <=1,800.0 [facility] Comment on above: Performed By: #### B CASTING MACHINE SET UP OPERATOR ####[facility] Pclsnzheey4524 [place] [address]Dr. Inessatracy Reis CARDIAC TRINA ADMITon 022 CK [Catalytic activity/Vol] 26 U/L Normal 26-192 [facility] Comment on above: Performed By: #### B RACQUEL APONTE ####[facility] Etnnnradyy[address] [place], [place] [address]Dr. Swathi Reis CK.MB [Mass/Vol] 0.79 ng/mL Normal <=3.60 [facility] Comment on above: Performed By: #### RACQUEL Gonsales MP ####[facility] Kssvfaaysg[address] [place], [place] [address]Dr. Swathi Reis HSTROP 16.0 pg/mL Normal 4.0-51.3 [facility] Comment on above: Result Comment: CUT- OFF POINTS HAVE BEEN ESTABLISHED BASED ON THE FOURTH UNIVERSAL DEFINITIONS OF MYOCARDIALINFARCTION. THE UPPER REFERENCE LIMIT (URL) OF TROPONIN, DEFINED THE 99TH PERCENTILE OFcTnI DISTRIBUTION IN A REFERENCE POPULATION, HAS BEEN CONFIRMED THE DECISION THRESHOLDFOR [place] DIAGNOSIS. Performed By: #### RACQUEL Gonsales MP ####[facility] Mvrhxxeovs[address] [place], [place] [address]Dr. Swathi Reis GUANACO 47 ng/mL Normal 9-82 [facility] Comment on above: Performed By: #### RACQUEL Gonsales MP ####[facility] Vxdfyckgxy[address] [place], [place] [address]Dr. Swathi Reis CBC AUTO DIFFon 08-18-2022 BASO # 0.1 103/ul Normal 0.0-0.1 [facility] Comment on above: Performed By: #### C BC ####[facility] Yjvkifayub[address] [place], [place] [address]Dr. Swathi Reis Basophils/100 WBC (Bld) 0.4 % Normal 0.2-2.0 [facility] Comment on above: Performed By: #### C BC ####[facility] Vmindtsffl[address] [place] [address]Dr. Swathi Reis EO # 0.1 103/ul Normal 0.0-0.7 [facility] Comment on above: Performed By: #### C BC ####[facility] Yixayokohl[address] [place] [address]Dr. Swathi Reis Eosinophils/100 WBC (Bld) 0.9 % Normal 0.9-7.0 [facility] Comment on above: Performed By: #### C BC ####[facility] Jlycruolrm[address] [place] [address]Dr. Swathi Reis Erythrocyte distribution width (RBC) [Ratio] 14.2 % Normal 11.0-15.0 [facility] Comment on above: Performed By: #### C BC ####[facility] Jbwuhkbkfu5[address] [place] [address]Dr. Swathi Reis Hematocrit (Bld) [Volume fraction] 34.1 % Critically low 36.0-48.0 [facility] Comment on above: Performed By: #### C BC ####[facility] Cyjtwjszjz[address] [place], [place] [address]Dr. Swathi Reis Hemoglobin (Bld) [Mass/Vol] 11.2 g/dL Critically low 12.0-16.0 [facility] Comment on above: Performed By: #### C BC ####[facility] Lhhpkopxml[address] [place] [address]Dr. Swathi Reis IG # 0.06 10e3/ul Critically high 0.00-0.03 The [facility] Comment on above: Performed By: #### C BC ####[facility] Rswtztwcja7186 [place] [address]Dr. Swathi Reis IG % 0.4 % Normal 0.0-0.5 [facility] Comment on above: Performed By: #### C BC ####[facility] Sboelffrve[address] [place], [place] [address]Dr. Inessatracy Reis LYMPH # 1.4 103/ul Normal 1.2-3.8 [facility] Comment on above: Performed By: #### C BC ####[facility] Eduqwmslco[address] [place] [address]Dr. Swathi Reis Lymphocytes/100 WBC (Bld) 10.1 % Critically low 20.5-60.0 [facility] Comment on above: Performed By: #### C BC ####[facility] Qozdhcbupm59[address] [place] [address]Dr. Inessatracy Reis MANUAL DIFF REQ NO Normal The [facility] Comment on above: Performed By: #### C BC ####[facility] Ujifmjxadf0764 [place] [address]Dr. Swathi Chato MCH (RBC) [Entitic mass] 29.2 pg Normal 26.7-34.0 [facility] Comment on above: Performed By: #### C BC ####[facility] Uxtqsrakbj6[address] [place] [address]Dr. Swathi Chato MCHC (RBC) [Mass/Vol] 32.8 g/dL Normal 29.9-35.2 [facility] Comment on above: Performed By: #### C BC ####[facility] Nlpssowulp[address] [place] [address]Dr. Swathi Chato MCV (RBC) [Entitic vol] 89.0 fL Normal 81.0-99.0 [facility] Comment on above: Performed By: #### C BC ####[facility] Xzwwpumvht3147 [place] [address]Dr. Swathi Reis MONO # 1.1 103/ul Critically high 0.3-0.8 [facility] Comment on above: Performed By: #### C BC ####[facility] Cdtxgyaeba1786 [place] [address]Dr. Inessatracy Reis Monocytes/100 WBC (Bld) 8.3 % Normal 1.7-12.0 [facility] Comment on above: Performed By: #### C BC ####[facility] Dzrdxwqzlk55[address] [place] [address]Dr. Swathi Reis NEUT # 11.0 103/ul Critically high 1.4-6.5 The [facility] Comment on above: Performed By: #### C BC ####[facility] Rgqujisocl5[address] [place], [place] [address]Yy. Swathi Reis Neutrophils/100 WBC (Bld) 79.9 % Critically high 43.0-75.0 [facility] Comment on above: Performed By: #### C BC ####[facility] Bnixojulmf9064 [place], [place] [address]Xz. Swathi Reis Platelet mean volume (Bld) [Entitic vol] 10.7 fL Normal 9.5-13.5 [facility] Comment on above: Performed By: #### C BC ####[facility] Nbywowinog9299 [place], [place] [address]Oq. Swathi Reis PLT 408 103/ul Normal 150-450 [facility] Comment on above: Performed By: #### C BC ####[facility] Nukdtgphbi7589 [place], [place] [address]Mo. Swathi Reis RBC 3.83 106/ul Critically low 4.20-5.40 The [facility] Comment on above: Performed By: #### C BC ####[facility] Iznwvsamng4122 [place], [place] [address]Ae. Swathi Reis WBC 13.8 103/ul Critically high 4.0-11.0 The [facility] Comment on above: Performed By: #### C BC ####[facility] Qyyrixrcle9273 [place], [place] [address]Uq. Swathi Reis Covid-19 PCR ([facility]on 07-25 SARS-CoV-2 (COVID-19) RNA ÓSCAR+probe Ql (Unsp spec) Not detected Normal NOT DETECTED [facility] Comment on above: Result [...] for this test is supported by the [employer] and Human Service's declaration that [...] be used). Performed By: #### C VDTBH ####[facility] Fztcfdtjnw01[address] [place] [id number]. Swathi Reis D-DIMERon 08-18-2022 D-DIMER 1.83 mg/L FEU Critically high <=0.59 The [facility] Comment on above: Performed By: #### D DIM ####[facility] Lxhzbaewtp[address] [place], [place] [address]Dr. Swathi [facility] D-DIMER COMMENTS SEE BELOW Normal The [facility] Comment on above: Result Comment: Incr [...] generalized hospitalization. Performed By: #### D DIM ####[facility] Mgniamuddy[address] [place], [place] [id number]. Swathi Reis INFLUENZA A AND B AGon 08-18 INFLUENZA A AG Negative Normal NEGATIVE SEE COMMENT [facility] Comment on above: Performed By: #### R SV, INFLUAB ####[facility] Ciuhvoqnyy[address] [place], [place] [address]Dr. Swathi [facility] INFLUENZA B AG Negative Normal NEGATIVE SEE COMMENT [facility] Comment on above: Performed By: #### R SV, INFLUAB ####[facility] Qhacfrmzmw[address] [place], [place] [address]Dr. Swathi [facility] INFLUPOSH SEE BELOW Normal [facility] Comment on above: Result Comment: NOTE : Live attenuated influenzae vaccine viruses can cause a positive result for a rapid influenza diagnostic test if administered up to 7 days prior to rapid testing. Performed By: #### R SV, INFLUAB ####[facility] Fkbidcraqo[address] [place], [place] [address]Dr. Swathi Reis INFLUPOSHB SEE BELOW Normal [facility] Comment on above: Result Comment: NOTE : Live attenuated influenzae vaccine viruses can cause a positive result for a rapid influenza diagnostic test if administered up to 7 days prior to rapid testing. Performed By: #### R SV, INFLUAB ####[facility] Yrujvvfxzx[address] [place], [place] [address]Dr. Swathi Reis INTERNAL CONTROLS Within Normal Limits Normal Wi thin Normal Limits [facility] Comment on above: Performed By: #### R LEI, INFLUAB ####[facility] Dsknxhreep[address] [place], [place] [address]Dr. Swathi Reis LACTATE/LACTIC ACIDon 2021 Lactate [Moles/Vol] 1.9 mmol/L Normal 0.4-1.9 [facility] Comment on above: Performed By: #### L ACT ####[facility] Evtqjjmdba[address] [place], [place] [address]Dr. Swathi Reis PROF CHEM 8 (BAS METB)on Anion gap [Moles/Vol] 13.9 mmol/L Normal [facility] Comment on above: Performed By: #### B FAY, RACQUEL ####[facility] Cdjrbumdbw[address] [place], [place] [address]Dr. Swathi Reis Calcium [Mass/Vol] 9.9 mg/dL Normal 8.5-10.1 [facility] [place] Comment on above: Performed By: #### B RACQUEL APONTE ####[facility] Lrabjrzjca[address] [place], [place] [address]Dr. Swathi Reis Chloride [Moles/Vol] 102 mmol/L Normal 98-107 [facility] Comment on above: Performed By: #### Dru APONTE, CMATRINIDAD ####[facility] Jolljxhisz[address] [place], [place] [address]Dr. Swathi Reis CO2 [Moles/Vol] 29.6 mmol/L Normal 21.0-32.0 [facility] Comment on above: Performed By: #### B FAY, RACQUEL ####[facility] Dhscclfmzl24[address] [place] [address]Dr. Inessatracy Reis Creatinine [Mass/Vol] 1.61 mg/dL Critically high 0.55-1.02 [facility] Comment on above: Performed By: #### B FAY, CMADM ####[facility] Kdvneplayx99[address] [place] [address]Dr. Swathi Reis EGFR-AF ARGENTINE 38 mL/min/1.73m2 Critically low >=60 [facility] Comment on above: Performed By: #### B FAY, CMADM ####[facility] Xrwotzrscf7753 [place] [address]Dr. Swathi Reis EGFR-NON AF ARGENTINE 31 mL/min/1.73m2 Critically low >=60 [facility] Comment on above: Performed By: #### B FAY, CMATRINIDAD ####[facility] Byasdrxgrq[address] [place], [place] [address]Dr. Swathi Reis Glucose [Mass/Vol] 192 mg/dL Critically high 74-106 [facility] Comment on above: Performed By: #### B FAY, CMATRINIDAD ####[facility] Sbqdzvcags[address] [place], [place] [address]Dr. Swathi Reis Potassium [Moles/Vol] 4.5 mmol/L Normal 3.5-5.1 [facility] Comment on above: Performed By: #### B FAY, CMADM ####[facility] Qksraugund8515 [place] [address]Dr. Swathi Reis Sodium [Moles/Vol] 141 mmol/L Normal 136-145 [facility] [place] Comment on above: Performed By: #### B FAY, CMADM ####[facility] Gyyqlcenwa[address] [place], [place] [address]Dr. Swathi Reis Urea nitrogen [Mass/Vol] 27.0 mg/dL Critically high 7.0-18.0 [facility] Comment on above: Performed By: #### B FAY, CMADM ####[facility] Ykvqjfvvfo[address] [place], [place] [address]Dr. Swathi Reis Urea nitrogen/Creatinine [Mass ratio] 16.8 mg/mg Normal [facility] Comment on above: Performed By: #### B MP, CMADM ####[facility] Vcqaqnhbvu[address] [place], [place] [address]Dr. Swathi Reis RSVon 08-18-2022 RSV AG Negative Normal NEGATIVE [facility] Comment on above: Performed By: #### R SV, INFLUAB ####[facility] Pfkcphduhy[address] [place], [place] [address]Dr. Swathi Reis BNPon 07-12-2022 Natriuretic peptide B (Bld) [Mass/Vol] 5375.0 pg/mL Critically high <=1,800.0 [facility] Comment on above: Performed By: #### B CASTING MACHINE SET UP OPERATOR, CMP ####[facility] Ayzrbyvqyq[address] [place], [place] [address]Dr. Swathi Reis CBC AUTO DIFFon 07-12-2022 BASO # 0.1 103/ul Normal 0.0-0.1 [facility] Comment on above: Performed By: #### C BC ####[facility] Uauexmqpug[address] [place], [place] [address]Dr. Swathi Reis Basophils/100 WBC (Bld) 0.7 % Normal 0.2-2.0 [facility] Comment on above: Performed By: #### C BC ####[facility] Iyuncbkxpu314[address] [place], [place] [address]Dr. Swathi Reis EO # 0.3 103/ul Normal 0.0-0.7 [facility] Comment on above: Performed By: #### C BC ####[facility] Krxjbxqetj20[address] [place], [place] [address]Dr. Swathi Reis Eosinophils/100 WBC (Bld) 3.2 % Normal 0.9-7.0 [facility] Comment on above: Performed By: #### C BC ####[facility] Vfawqtzraq[address] [place], [place] [address]Dr. Swathi Reis Erythrocyte distribution width (RBC) [Ratio] 13.3 % Normal 11.0-15.0 [facility] Comment on above: Performed By: #### C BC ####[facility] [address]wszvfuhab[address] [place] [address]Dr. Swathi Reis Hematocrit (Bld) [Volume fraction] 29.9 % Critically low 36.0-48.0 [facility] Comment on above: Performed By: #### C BC ####[facility] Zqfxdvdgbb49[address] [place] [address]Dr. Swathi Chato Hemoglobin (Bld) [Mass/Vol] 9.7 g/dL Critically low 12.0-16.0 [facility] Comment on above: Performed By: #### C BC ####[facility] Ffucccfttg[address] [place], [place] [address]Dr. Inessatracy Reis IG # 0.05 10e3/ul Critically high 0.00-0.03 [facility] Comment on above: Performed By: #### C BC ####[facility] Xgugotkzoh[address] [place], [place] [address]Dr. Swathi Reis IG % 0.5 % Normal 0.0-0.5 [facility] Comment on above: Performed By: #### C BC ####[facility] Yommohiabi[address] [place], [place] [address]Dr. Inessatracy Reis LYMPH # 1.5 103/ul Normal 1.2-3.8 [facility] Comment on above: Performed By: #### C BC ####[facility] Cagrakwqup[address] [place], [place] [address]DrOtto Inessatracy Reis Lymphocytes/100 WBC (Bld) 14.0 % Critically low 20.5-60.0 [facility] Comment on above: Performed By: #### C BC ####[facility] Zfstzznigp[address] [place], [place] [address]Dr. Inessatracy Reis MANUAL DIFF REQ NO Normal [facility] Comment on above: Performed By: #### C BC ####[facility] Hcmbqoyftt[address] [place], [place] [address]DrOtto Inessatracy Reis MCH (RBC) [Entitic mass] 30.1 pg Normal 26.7-34.0 [facility] Comment on above: Performed By: #### C BC ####[facility] Usxblctozp1496 [place] [address]Dr. Swathi Chato MCHC (RBC) [Mass/Vol] 32.4 g/dL Normal 29.9-35.2 [facility] Comment on above: Performed By: #### C BC ####[facility] Opzuusxdid7425 [place] [address]Dr. Swathi Reis MCV (RBC) [Entitic vol] 92.9 fL Normal 81.0-99.0 [facility] Comment on above: Performed By: #### C BC ####[facility] Irzqdjftdk1491 [place] [address]Dr. Swathi Reis MONO # 1.2 103/ul Critically high 0.3-0.8 [facility] Comment on above: Performed By: #### C BC ####[facility] Hzbxaahxxz63[address] [place], [place] [address]Dr. Swathi Reis Monocytes/100 WBC (Bld) 11.1 % Normal 1.7-12.0 [facility] Comment on above: Performed By: #### C BC ####[facility] Qanfdorkgf[address] [place], [place] [address]Dr. Swathi Reis NEUT # 7.5 103/ul Critically high 1.4-6.5 [facility] Comment on above: Performed By: #### C BC ####[facility] Wgljarnhmk[address] [place], [place] [address]Dr. Swathi Reis Neutrophils/100 WBC (Bld) 70.5 % Normal 43.0-75.0 [facility] Comment on above: Performed By: #### C BC ####[facility] Hznxnktyie07[address] [place], [place] [address]Dr. Swathi Reis Platelet mean volume (Bld) [Entitic vol] 10.7 fL Normal 9.5-13.5 [facility] Comment on above: Performed By: #### C BC ####[facility] Nvklnehyna[address] [place], [place] [address]Dr. Swathi Reis PLT 291 103/ul Normal 150-450 [facility] Comment on above: Performed By: #### C BC ####[facility] Lliusojytb0195 [place] [address]Dr. Swathi Reis RBC 3.22 106/ul Critically low 4.20-5.40 [facility] Comment on above: Performed By: #### C BC ####[facility] Vghksmrfgs5530 [place] [address]Dr. Swathi Reis WBC 10.6 103/ul Normal 4.0-11.0 [facility] Comment on above: Performed By: #### C BC ####[facility] Qnntnhwkqo2937 [place] [address]Dr. Swathi Reis POINT OF CARE GLUCOSEon 06-24 0 Glucose [Mass/Vol] 191 mg/dL Critically high 74-106 [facility] Comment on above: Performed By: #### P OCGLUC ####[facility] Ppomjkippm[address] [place], [place] [address]Dr. Swathi Reis PROF 14(COMP METB)on 022 Albumin [Mass/Vol] 2.4 g/dL Critically low 3.4-5.0 [facility] Comment on above: Performed By: #### B CASTING MACHINE SET UP OPERATOR, CMP ####[facility] Wipduotfiz[address] [place], [place] [address]Dr. Swathi Reis Albumin/Globulin [Mass ratio] 0.6 {ratio} Normal [facility] Comment on above: Performed By: #### B CASTING MACHINE SET UP OPERATOR, CMP ####[facility] Hhtcaokuux0964 [place] [address]Dr. Swathi Reis ALP [Catalytic activity/Vol] 73 U/L Normal 46-116 [facility] Comment on above: Performed By: #### B CASTING MACHINE SET UP OPERATOR, CMP ####[facility] Zogvkxdyye7120 [place] [address]Dr. Swathi Reis ALT [Catalytic activity/Vol] 11 U/L Critically low 14-59 [facility] Comment on above: Performed By: #### B CASTING MACHINE SET UP OPERATOR, CMP ####[facility] Jrzsgtequr5106 [place] [address]Dr. Swathi Reis Anion gap [Moles/Vol] 7.7 mmol/L Normal [facility] Comment on above: Performed By: #### B CASTING MACHINE SET UP OPERATOR, CMP ####[facility] Nvjdiilktw[address] [place], [place] [address]Dr. Swathi Reis AST [Catalytic activity/Vol] 15 U/L Normal 15-37 [facility] Comment on above: Performed By: #### B CASTING MACHINE SET UP OPERATOR, CMP ####[facility] Mwzhrdvnyx[address] [place], [place] [address]Dr. Swathi Reis Bilirubin [Mass/Vol] 0.3 mg/dL Normal 0.2-1.0 [facility] Comment on above: Performed By: #### B CASTING MACHINE SET UP OPERATOR, CMP ####[facility] Lqfamlrdid[address] [place], [place] [address]Dr. Inessatracy Reis Calcium [Mass/Vol] 9.3 mg/dL Normal 8.5-10.1 [facility] [place] Comment on above: Performed By: #### B CASTING MACHINE SET UP OPERATOR, CMP ####[facility] Vrjlhmkuad[address] [place], [place] [address]Dr. Swathi Reis Chloride [Moles/Vol] 104 mmol/L Normal 98-107 [facility] Comment on above: Performed By: #### B CASTING MACHINE SET UP OPERATOR, CMP ####[facility] Takdtrkvrl[address] [place], [place] [address]Dr. Inessatracy Reis CO2 [Moles/Vol] 30.2 mmol/L Normal 21.0-32.0 [facility] Comment on above: Performed By: #### B CASTING MACHINE SET UP OPERATOR, CMP ####[facility] Ekbtyolyrn[address] [place], [place] [address]Dr. Swathi Reis Creatinine [Mass/Vol] 1.69 mg/dL Critically high 0.55-1.02 [facility] Comment on above: Performed By: #### B CASTING MACHINE SET UP OPERATOR, CMP ####[facility] Jxekjyrzqr[address] [place], [place] [address]Dr. Inessatracy Chato EGFR-AF ARGENTINE 36 mL/min/1.73m2 Critically low >=60 [facility] Comment on above: Performed By: #### B CASTING MACHINE SET UP OPERATOR, CMP ####[facility] Odgaynmjnv[address] [place], [place] [address]Dr. Swathi Reis EGFR-NON AF ARGENTINE 29 mL/min/1.73m2 Critically low >=60 [facility] Comment on above: Performed By: #### B CASTING MACHINE SET UP OPERATOR, CMP ####[facility] Usstthcudx9566 [place] [address]Dr. Swathi Reis Globulin (S) [Mass/Vol] 4.0 g/dL Normal [facility] Comment on above: Performed By: #### B CASTING MACHINE SET UP OPERATOR, CMP ####[facility] Ztsmpkdqzn0949 [place] [address]Dr. Swathi Reis Glucose [Mass/Vol] 110 mg/dL Critically high 74-106 T [facility] Comment on above: Performed By: #### B CASTING MACHINE SET UP OPERATOR, CMP ####[facility] Dovkvkhsag[address] [place], [place] [address]Dr. Swathi Reis Potassium [Moles/Vol] 3.9 mmol/L Normal 3.5-5.1 [facility] Comment on above: Performed By: #### B CASTING MACHINE SET UP OPERATOR, CMP ####[facility] Xepeizohxb[address] [place], [place] [address]Dr. Swathi Reis Protein [Mass/Vol] 6.4 g/dL Normal 6.4-8.2 The [facility] Comment on above: Performed By: #### B CASTING MACHINE SET UP OPERATOR, CMP ####[facility] Gwlknftqyv[address] [place], [place] [address]Dr. Swathi Reis Sodium [Moles/Vol] 138 mmol/L Normal 136-145 [facility] Comment on above: Performed By: #### B CASTING MACHINE SET UP OPERATOR, CMP ####[facility] Gyqmahmlob[address] [place], [place] [address]Dr. Swathi Reis Urea nitrogen [Mass/Vol] 21.0 mg/dL Critically high 7.0-18.0 [facility] Comment on above: Performed By: #### B CASTING MACHINE SET UP OPERATOR, CMP ####[facility] Bgsarxwqgp[address] [place], [place] [address]Dr. Swathi Reis Urea nitrogen/Creatinine [Mass ratio] 12.4 mg/mg Normal [facility] Comment on above: Performed By: #### B CASTING MACHINE SET UP OPERATOR, CMP ####[facility] Pcsnsucaxn7[address] [place] [address]Dr. Swathi Reis BNPon 07-11-2022 Natriuretic peptide B (Bld) [Mass/Vol] 2516.0 pg/mL Critically high <=1,800.0 [facility] Comment on above: Performed By: #### B CASTING MACHINE SET UP OPERATOR, CMP ####[facility] Oqotygthpm[address] [place], [place] [address]Dr. Swathi Chato C. DIFF PCRon 07-11-2022 C. DIFFICILE PCR Positive Critically abnormal NEGATIVE [facility] Comment on above: Performed By: #### C DIFPOC ####[facility] Kravdidnmy[address] [place], [place] [address]Dr. Swathi Chato CBC AUTO DIFFon 07-11-2022 BASO # 0.0 103/ul Normal 0.0-0.1 [facility] Comment on above: Performed By: #### C BC ####[facility] Hcfubmvgar[address] [place], [place] [address]Dr. Swathi Reis Basophils/100 WBC (Bld) 0.4 % Normal 0.2-2.0 [facility] Comment on above: Performed By: #### C BC ####[facility] Rmnnmseuem[address] [place], [place] [address]Dr. Swathi Reis EO # 0.2 103/ul Normal 0.0-0.7 [facility] Comment on above: Performed By: #### C BC ####[facility] Ymblshmjoj[address] [place], [place] [address]Dr. Swathi Reis Eosinophils/100 WBC (Bld) 2.2 % Normal 0.9-7.0 [facility] Comment on above: Performed By: #### C BC ####[facility] Amtrcjbees[address] [place], [place] [address]Dr. Swathi Reis Erythrocyte distribution width (RBC) [Ratio] 13.4 % Normal 11.0-15.0 [facility] Comment on above: Performed By: #### C BC ####[facility] Iitjovgquz[address] [place], [place] [address]Dr. Swathi Reis Hematocrit (Bld) [Volume fraction] 27.0 % Critically low 36.0-48.0 [facility] Comment on above: Performed By: #### C BC ####[facility] Vclx[address]qgqrd4[address] [place] [address]DrOtto Reis Hemoglobin (Bld) [Mass/Vol] 8.5 g/dL Critically low 12.0-16.0 [facility] Comment on above: Performed By: #### C BC ####[facility] Te[address]isekqv[address] [place] [address]DrOtto Reis IG # 0.07 10e3/ul Critically high 0.00-0.03 [facility] Comment on above: Performed By: #### C BC ####[facility] [address]nlfw[address] [place] [place], [place] [address]DrOtto Reis IG % 0.6 % Critically high 0.0-0.5 [facility] Comment on above: Performed By: #### C BC ####[facility] Lpqlbrjxxp[address] [place], [place] [address]DrOtto Reis LYMPH # 1.2 103/ul Normal 1.2-3.8 [facility] Comment on above: Performed By: #### C BC ####[facility] Hsbmjhhjuc[address] [place], [place] [address]DrOtto Reis Lymphocytes/100 WBC (Bld) 10.5 % Critically low 20.5-60.0 [facility] Comment on above: Performed By: #### C BC ####[facility] Xndphkqsnm126[address] [place], [place] [address]DrOtto Reis MANUAL DIFF REQ NO Normal The [facility] Comment on above: Performed By: #### C BC ####[facility] Bypxrmkvtr372[address] [place], [place] [address]DrOtto Reis MCH (RBC) [Entitic mass] 29.6 pg Normal 26.7-34.0 [facility] Comment on above: Performed By: #### C BC ####[facility] Kcfupierdd11[address] [place], [place] [address]DrOtto Reis MCHC (RBC) [Mass/Vol] 31.5 g/dL Normal 29.9-35.2 The [facility] Comment on above: Performed By: #### C BC ####[facility] Ngzmepwbsv[address] [place] [address]DrOtto Reis MCV (RBC) [Entitic vol] 94.1 fL Normal 81.0-99.0 [facility] Comment on above: Performed By: #### C BC ####[facility] Tdfkrlliam3[address] [place], [place] [address]DrOtto Reis MONO # 1.1 103/ul Critically high 0.3-0.8 [facility] Comment on above: Performed By: #### C BC ####[facility] Cwxsdrneaq7933[address] [place], [place] [address]DrOtto Reis Monocytes/100 WBC (Bld) 9.9 % Normal 1.7-12.0 The [facility] Comment on above: Performed By: #### C BC ####[facility] Nbhnkwbaly[address] [place], [place] [address]DrOtto Reis NEUT # 8.4 103/ul Critically high 1.4-6.5 [facility] Comment on above: Performed By: #### C BC ####[facility] Wwqdjttrxu85[address] [place], [place] [address]DrOtto Reis Neutrophils/100 WBC (Bld) 76.4 % Critically high 43.0-75.0 The [facility] Comment on above: Performed By: #### C BC ####[facility] Mafesmaypd997[address] [place], [place] [address]DrOtto Reis Platelet mean volume (Bld) [Entitic vol] 10.6 fL Normal 9.5-13.5 The [facility] Comment on above: Performed By: #### C BC ####[facility] Ffkqtdyvox[address] [place], [place] [address]DrOtto Reis PLT 248 103/ul Normal 150-450 [facility] Comment on above: Performed By: #### C BC ####[facility] Cdizcxjaiw996[address] [place], [place] [address]DrOtto Reis RBC 2.87 106/ul Critically low 4.20-5.40 The [facility] Comment on above: Performed By: #### C BC ####[facility] Xztxtrhlpw898184 [address] [place], [place] [address]Dr. Swathi Reis WBC 11.0 103/ul Normal 4.0-11.0 The [facility] Comment on above: Performed By: #### C BC ####[facility] Xfsngxfvtl217[address] [place], [place] [address]Dr. Swathi Reis GI PANEL (PCR)on 07-11-2022 Adenovirus F 40/41 Not detected Normal NOT DETECTED The [facility] Comment on above: Performed By: #### G IPANEL ####[facility] Ehdkvctsgg5650[address] [place], [place] [address]Dr. Swathi Reis Astrovirus Not detected Normal NOT DETECTED The [facility] Comment on above: Performed By: #### G IPANEL ####[facility] Dvmnscteur256[address] [place], [place] [address]Dr. Swathi Reis C. Diff toxin A/B Detected Critically abnormal NOT DETECTED The [facility] Comment on above: Performed By: #### G IPANEL ####[facility] Jvxavyoiji5455[address] [place], [place] [address]Dr. Swathi Reis Campylobacter Not detected Normal NOT DETECTED The [facility] Comment on above: Performed By: #### G IPANEL ####[facility] Ieqjijyaxo204[address] [place], [place] [address]Dr. Swathi Reis Cryptosporidium Not detected Normal NOT DETECTED The [facility] Comment on above: Performed By: #### G IPANEL ####[facility] Wbtgvlckcd8227[address] [place], [place] [address]Dr. Swathi Reis Cyclos. Cayetanensis Not detected Normal NOT DETECTED The [facility] Comment on above: Performed By: #### G IPANEL ####[facility] Etwnwqhqeq0400[address] [place], [place] [address]Dr. Swathi Reis E. Coli O157 Not Applicable Normal Not Applicable The [facility] Comment on above: Performed By: #### G IPANEL ####[facility] Xyojqfxvgo508[address] [place], [place] [address]Dr. Inessatracy Reis E. histolytica Not detected Normal NOT DETECTED The [facility] Comment on above: Performed By: #### G IPANEL ####[facility] Mzgqpckzsw5827[address] [place], [place] [address]Dr. Swathi Reis EAEC Not detected Normal NOT DETECTED The [facility] Comment on above: Performed By: #### G IPANEL ####[facility] Jjiarcpaml5259[address] [place], [place] [address]Dr. Swathi Reis EIEC Not detected Normal NOT DETECTED The [facility] Comment on above: Performed By: #### G IPANEL ####[facility] Wxbkpqqysq277[address] [place], [place] [address]Dr. tracy Reis EPEC Not detected Normal NOT DETECTED The [facility] Comment on above: Performed By: #### G IPANEL ####[facility] Dqhkjsvdtu510[address] [place], [place] [address]Dr. Swathi Reis ETEC Not detected Normal NOT DETECTED The [facility] Comment on above: Performed By: #### G IPANEL ####[facility] Mayfoxowql9934[address] [place], [place] [address]Dr. Inessatracy Reis G. Lamblia Not detected Normal NOT DETECTED The [facility] Comment on above: Performed By: #### G IPANEL ####[facility] Gerziatctu9034[address] [place], [place] [address]Dr. Swathi Reis [facility] Normal The [facility] Comment on above: Performed By: #### G IPANEL ####[facility] Dlxowexqau4622[address] [place], [place] [address]Dr. Swathi [facility] RICHELLE HEADER GI PANEL BACTERIA Normal T [facility] Comment on above: Performed By: #### G IPANEL ####[facility] Ntbhwdsbzg8411[address] [place], [place] [address]Dr. Swathi Reis [facility] ECOLI GI PANEL DIARRHEAGEN IC E.COLI / SHIGELLA Normal The [facility] Comment on above: Performed By: #### G IPANEL ####[facility] Rlqqexmihe3170[address] [place], [place] [address]Dr. Swathi [facility] CenterNLHD INFO SEE BELOW Normal The [facility] Comment on above: Result Comment: EAEC - Enteroaggregative E. Coli EPEC- Enteropathogenic E. Coli ETEC- Enterotoxigenic E. Coli lt/st STEC- Shigella-like toxin-producing E. Coli stx1/stx2 EIEC- Shigella/Enteroinvasive E. Coli Performed By: #### G IPANEL ####[facility] [address]aufcmfyx[address] [place] [address]Dr. Swathi Reis GIPNLHD PARASITES GI PANEL PARASITES Normal The [facility] Comment on above: Performed By: #### G IPANEL ####[facility] Xrlosaimsi848[address] [place], [place] [address]Dr. Swathi Reis GIPNLHD VIRUS GI PANEL VIRUSES Normal The [facility] Comment on above: Performed By: #### G IPANEL ####[facility] Eauskxcvph2885[address] [place], [place] [address]Dr. Swathi Reis Norovirus GI/GII Not detected Normal NOT DETECTED The [facility] Comment on above: Performed By: #### G IPANEL ####[facility] Kreayaisez[address] [place], [place] [address]Dr. Swathi Reis P. Shigelloides Not detected Normal NOT DETECTED The [facility] Comment on above: Performed By: #### G IPANEL ####[facility] Bjlruxcjlu65[address] [place], [place] [address]Dr. Inessatracy Reis Rotavirus A Not detected Normal NOT DETECTED The [facility] Comment on above: Performed By: #### G IPANEL ####[facility] Wlzyofxnwu666[address] [place], [place] [address]Dr. Swathi Reis Salmonella Not detected Normal NOT DETECTED The [facility] Comment on above: Performed By: #### G IPANEL ####[facility] Aqwsmdjwsr277[address] [place], [place] [address]Dr. Swathi Reis Sapovirus Not detected Normal NOT DETECTED The [facility] Comment on above: Performed By: #### G IPANEL ####[facility] Deachqswms375[address] [place], [place] [address]Dr. Swathi Reis STEC Detected Critically abnormal NOT DETECTED The [facility] Comment on above: Performed By: #### G IPANEL ####[facility] [address]dwvishg[address] [place] [address]Dr. Swathi Reis Vibrio Not detected Normal NOT DETECTED [facility] Comment on above: Performed By: #### G IPANEL ####[facility] Tuzyavgkqr[address] [place] [address]Dr. Swathi Reis Vibrio Cholera Not detected Normal NOT DETECTED The [facility] Comment on above: Performed By: #### G IPANEL ####[facility] Hutrgckrnj816[address] [place], [place] [address]Dr. Swathi Reis Y. Enterocolitica Not detected Normal NOT DETECTED The [facility] Comment on above: Performed By: #### G IPANEL ####[facility] Thhuikptvj887[address] [place], [place] [address]Dr. Swathi Reis POINT OF CARE GLUCOSEon 06-23 Glucose [Mass/Vol] 120 mg/dL Critically high 74-106 [facility] Comment on above: Performed By: #### P OCGLUC ####[facility] Yihvduqxno93[address] [place], [place] [address]Dr. Swathi Reis Glucose [Mass/Vol] 193 mg/dL Critically high 74-106 [facility] Comment on above: Performed By: #### P OCGLUC ####[facility] Rpdnihscaw220[address] [place], [place] [address]Dr. Swathi Reis PROF 14(COMP METB)on 022 Albumin [Mass/Vol] 2.4 g/dL Critically low 3.4-5.0 Th [facility] Comment on above: Performed By: #### B CASTING MACHINE SET UP OPERATOR, CMP ####[facility] Owhlnftkwl8418[address] [place], [place] [address]Dr. Inessatracy Reis Albumin/Globulin [Mass ratio] 0.7 {ratio} Normal [facility] Comment on above: Performed By: #### B CASTING MACHINE SET UP OPERATOR, CMP ####[facility] Lsjbtvbwjo927[address] [place], [place] [address]Dr. Swathi Reis ALP [Catalytic activity/Vol] 70 U/L Normal 46-116 [facility] Comment on above: Performed By: #### B CASTING MACHINE SET UP OPERATOR, CMP ####[facility] W[address]zbje[address] [place] [address]Dr. Swathi Reis ALT [Catalytic activity/Vol] 12 U/L Critically low 14-59 [facility] Comment on above: Performed By: #### B CASTING MACHINE SET UP OPERATOR, CMP ####[facility] Fvskhnklwd14[address] [place] [address]Dr. Swathi Reis Anion gap [Moles/Vol] 8.7 mmol/L Normal [facility] Comment on above: Performed By: #### B CASTING MACHINE SET UP OPERATOR, CMP ####[facility] Iseqituhkj[address] [place], [place] [address]Dr. Swathi Reis AST [Catalytic activity/Vol] 11 U/L Critically low 15-37 [facility] Comment on above: Performed By: #### B CASTING MACHINE SET UP OPERATOR, CMP ####[facility] Nrcyhznbsf112[address] [place], [place] [address]Dr. Inessatracy Reis Bilirubin [Mass/Vol] 0.3 mg/dL Normal 0.2-1.0 [facility] Comment on above: Performed By: #### B CASTING MACHINE SET UP OPERATOR, CMP ####[facility] Jomhgdjysl160[address] [place], [place] [address]Dr. Swathi Chato Calcium [Mass/Vol] 9.1 mg/dL Normal 8.5-10.1 [facility] Comment on above: Performed By: #### B CASTING MACHINE SET UP OPERATOR, CMP ####[facility] Ogucacokco474[address] [place], [place] [address]Dr. Swathi Reis Chloride [Moles/Vol] 107 mmol/L Normal 98-107 [facility] Comment on above: Performed By: #### B CASTING MACHINE SET UP OPERATOR, CMP ####[facility] Mauunhhynk22[address] [place], [place] [address]Dr. Inessatracy Reis CO2 [Moles/Vol] 27.6 mmol/L Normal 21.0-32.0 [facility] Comment on above: Performed By: #### B CASTING MACHINE SET UP OPERATOR, CMP ####[facility] Cnfcsfdfms8[address] [place], [place] [address]Dr. Inessatracy Chato Creatinine [Mass/Vol] 1.72 mg/dL Critically high 0.55-1.02 [facility] Comment on above: Performed By: #### B CASTING MACHINE SET UP OPERATOR, CMP ####[facility] [address]uzm[address] [place] [address]Dr. Swathi Reis EGFR-AF ARGENTINE 35 mL/min/1.73m2 Critically low >=60 [facility] Comment on above: Performed By: #### B CASTING MACHINE SET UP OPERATOR, CMP ####[facility] Ofjxrmnnxo05[address] [place] [address]Dr. Swathi Reis EGFR-NON AF ARGENTINE 29 mL/min/1.73m2 Critically low >=60 [facility] Comment on above: Performed By: #### B CASTING MACHINE SET UP OPERATOR, CMP ####[facility] Sqqllukefv4[address] [place] [address]Dr. Swathi Reis Globulin (S) [Mass/Vol] 3.6 g/dL Normal [facility] Comment on above: Performed By: #### B CASTING MACHINE SET UP OPERATOR, CMP ####[facility] Mexpjhrkud[address] [place], [place] [address]Dr. Swathi Reis Glucose [Mass/Vol] 119 mg/dL Critically high 74-106 [facility] Comment on above: Performed By: #### B CASTING MACHINE SET UP OPERATOR, CMP ####[facility] Jafvibfwts4[address] [place], [place] [address]Dr. Swathi Chato Potassium [Moles/Vol] 4.3 mmol/L Normal 3.5-5.1 [facility] Comment on above: Performed By: #### B CASTING MACHINE SET UP OPERATOR, CMP ####[facility] Ppqsdlzeun[address] [place], [place] [address]Dr. Swathi Reis Protein [Mass/Vol] 6.0 g/dL Critically low 6.4-8.2 Th [facility] Comment on above: Performed By: #### B CASTING MACHINE SET UP OPERATOR, CMP ####[facility] Yoisqtnklv6574 [place] [address]Dr. Swathi Reis Sodium [Moles/Vol] 139 mmol/L Normal 136-145 [facility] Comment on above: Performed By: #### B CASTING MACHINE SET UP OPERATOR, CMP ####[facility] Wqnehblszv3167[address] [place], [place] [address]Dr. Swathi Chato Urea nitrogen [Mass/Vol] 23.0 mg/dL Critically high 7.0-18.0 The [facility] Comment on above: Performed By: #### B CASTING MACHINE SET UP OPERATOR, CMP ####[facility] Hocflptogp[address] [place], [place] [address]Dr. Swathi Reis Urea nitrogen/Creatinine [Mass ratio] 13.4 mg/mg Normal The [facility] Comment on above: Performed By: #### B CASTING MACHINE SET UP OPERATOR, CMP ####[facility] Fhwcvzttyd[address] [place], [place] [address]Dr. Swathi Reis BNPon 07-10-2022 Natriuretic peptide B (Bld) [Mass/Vol] 2243.0 pg/mL Critically high <=1,800.0 The [facility] Comment on above: Performed By: #### B CASTING MACHINE SET UP OPERATOR, CMP ####[facility] Ioakphspjo6[address] [place], [place] [address]Dr. Swathi Reis CBC AUTO DIFFon 07-10-2022 BASO # 0.1 103/ul Normal 0.0-0.1 The [facility] Comment on above: Performed By: #### C BC ####[facility] Jrzinkaooq35[address] [place], [place] [address]Dr. Swathi Reis Basophils/100 WBC (Bld) 0.7 % Normal 0.2-2.0 The [facility] Comment on above: Performed By: #### C BC ####[facility] Gycpqfadjv[address] [place], [place] [address]Dr. Inessatracy Chato EO # 0.2 103/ul Normal 0.0-0.7 The [facility] Comment on above: Performed By: #### C BC ####[facility] Txvijkcloq[address] [place], [place] [address]Dr. Inessatracy Reis Eosinophils/100 WBC (Bld) 2.1 % Normal 0.9-7.0 The [facility] Comment on above: Performed By: #### C BC ####[facility] Ueibidomih[address] [place], [place] [address]Dr. Inessatracy Reis Erythrocyte distribution width (RBC) [Ratio] 13.5 % Normal 11.0-15.0 The [facility] Comment on above: Performed By: #### C BC ####[facility] X[address]yfugh[address] [place] [address]Dr. Inessatracy Reis Hematocrit (Bld) [Volume fraction] 36.6 % Normal 36.0-48.0 The [facility] Comment on above: Performed By: #### C BC ####[facility] Edbqnicmst3[address] [place] [address]Dr. Swathi Reis Hemoglobin (Bld) [Mass/Vol] 11.3 g/dL Critically low 12.0-16.0 The [facility] Comment on above: Performed By: #### C BC ####[facility] Cpjysjspcv4059 [place] [address]Dr. Swathi Reis IG # 0.03 10e3/ul Normal 0.00-0.03 [facility] Comment on above: Performed By: #### C BC ####[facility] Shlgumwccc7026 [place] [address]Dr. Swathi Reis IG % 0.4 % Normal 0.0-0.5 [facility] Comment on above: Performed By: #### C BC ####[facility] Hulfmwyodi28[address] [place] [address]Dr. Swathi Reis LYMPH # 0.8 103/ul Critically low 1.2-3.8 The [facility] Comment on above: Performed By: #### C BC ####[facility] [address]ecfrshbtq[address] [place] [address]Dr. Swathi Reis Lymphocytes/100 WBC (Bld) 10.3 % Critically low 20.5-60.0 The [facility] Comment on above: Performed By: #### C BC ####[facility] Nxcshcfmin5[address] [place] [address]Dr. Swathi Reis MANUAL DIFF REQ NO Normal [facility] Comment on above: Performed By: #### C BC ####[facility] Okkwuccaae[address] [place], [place] [address]Dr. Swathi Reis MCH (RBC) [Entitic mass] 29.1 pg Normal 26.7-34.0 [facility] Comment on above: Performed By: #### C BC ####[facility] Rnosqahebg7103 [place] [address]Dr. Swathi Reis MCHC (RBC) [Mass/Vol] 30.9 g/dL Normal 29.9-35.2 [facility] Comment on above: Performed By: #### C BC ####[facility] Ivpagnqymc8376 [place] [address]Dr. Swathi Reis MCV (RBC) [Entitic vol] 94.3 fL Normal 81.0-99.0 [facility] Comment on above: Performed By: #### C BC ####[facility] Dabafjppfe[address] [place] [address]Dr. Swathi Chato MONO # 0.7 103/ul Normal 0.3-0.8 [facility] Comment on above: Performed By: #### C BC ####[facility] Lchxlclyme[address] [place], [place] [address]Dr. Swathi Reis Monocytes/100 WBC (Bld) 10.2 % Normal 1.7-12.0 The [facility] Comment on above: Performed By: #### C BC ####[facility] Ngwyfskxes[address] [place], [place] [address]Dr. Swathi Reis NEUT # 5.5 103/ul Normal 1.4-6.5 The [facility] Comment on above: Performed By: #### C BC ####[facility] Delpqpnyxp5407 [place] [address]Dr. Swathi Reis Neutrophils/100 WBC (Bld) 76.3 % Critically high 43.0-75.0 The [facility] Comment on above: Performed By: #### C BC ####[facility] Cwfbrkoglf[address] [place], [place] [address]Dr. Inessatracy Reis Platelet mean volume (Bld) [Entitic vol] 10.6 fL Normal 9.5-13.5 The [facility] Comment on above: Performed By: #### C BC ####[facility] [address]zqwkxknhf[address] [place], [place] [address]Dr. Swathi Reis PLT 212 103/ul Normal 150-450 [facility] Comment on above: Performed By: #### C BC ####[facility] Bomzeoidue8[address] [place] [address]Dr. Swathi Reis RBC 3.88 106/ul Critically low 4.20-5.40 [facility] Comment on above: Performed By: #### C BC ####[facility] Tktybccujp4273 [place] [address]Dr. Swathi Reis WBC 7.3 103/ul Normal 4.0-11.0 [facility] Comment on above: Performed By: #### C BC ####[facility] Hvyahtcjmg14[address] [place] [address]Dr. Swathi Reis POINT OF CARE GLUCOSEon 06-23 Glucose [Mass/Vol] 171 mg/dL Critically high 74-106 [facility] Comment on above: Performed By: #### P OCGLUC ####[facility] Ywgboinmok7635 [place] [address]Dr. Swathi Reis Glucose [Mass/Vol] 162 mg/dL Critically high 74-106 [facility] Comment on above: Performed By: #### P OCGLUC ####[facility] Rsprkzxkvt27[address] [place] [address]Dr. Swathi Reis Glucose [Mass/Vol] 176 mg/dL Critically high 74-106 [facility] Comment on above: Performed By: #### P OCGLUC ####[facility] Izigfxwlkx7649 [place] [address]Dr. Swathi Reis Glucose [Mass/Vol] 140 mg/dL Critically high 74-106 [facility] Comment on above: Performed By: #### P OCGLUC ####[facility] Migkkkkrbj5685 [place] [address]Dr. Swathi Reis Glucose [Mass/Vol] 37 mg/dL Critically low 74-106 [facility] Comment on above: Result Comment: Will Repeat Test Performed By: #### P OCGLUC ####[facility] Hpmtbrrinj1169 [place] [address]Dr. Swathi Reis PROF 14(COMP METB)on 07-10-2 022 Albumin [Mass/Vol] 2.5 g/dL Critically low 3.4-5.0 Th [facility] Comment on above: Performed By: #### B CASTING MACHINE SET UP OPERATOR, CMP ####[facility] Nxstcdsdts3690 [place] [id number]. Swathi Chato Albumin/Globulin [Mass ratio] 0.7 {ratio} Normal [facility] Comment on above: Performed By: #### B CASTING MACHINE SET UP OPERATOR, CMP ####[facility] Qkicavweyg4331 [place] [id number]. Swathi Chato ALP [Catalytic activity/Vol] 71 U/L Normal 46-116 [facility] Comment on above: Performed By: #### B CASTING MACHINE SET UP OPERATOR, CMP ####[facility] Ryugjzpicw2210 [place] [id number]. Swathi Chato ALT [Catalytic activity/Vol] 12 U/L Critically low 14-59 [facility] Comment on above: Performed By: #### B CASTING MACHINE SET UP OPERATOR, CMP ####[facility] Hmrefpfqhw4436 [place] [address]Dr. Swathi Reis Anion gap [Moles/Vol] 10.1 mmol/L Normal [facility] Comment on above: Performed By: #### B CASTING MACHINE SET UP OPERATOR, CMP ####[facility] Ovjbduvnrp9074 [place] [id number]. Swathi Chato AST [Catalytic activity/Vol] 11 U/L Critically low 15-37 [facility] Comment on above: Performed By: #### B CASTING MACHINE SET UP OPERATOR, CMP ####[facility] Vqxygkqhpm0427 [place] [id number]. Swathi Reis Bilirubin [Mass/Vol] 0.4 mg/dL Normal 0.2-1.0 [facility] Comment on above: Performed By: #### B CASTING MACHINE SET UP OPERATOR, CMP ####[facility] Ehlikjyqtk6399 [place] [id number]. Swathi Reis Calcium [Mass/Vol] 9.0 mg/dL Normal 8.5-10.1 [facility] Comment on above: Performed By: #### B CASTING MACHINE SET UP OPERATOR, CMP ####[facility] Hxcedftjsi9475 [place] [id number]. Swathi Reis Chloride [Moles/Vol] 107 mmol/L Normal 98-107 [facility] Comment on above: Performed By: #### B CASTING MACHINE SET UP OPERATOR, CMP ####[facility] Goybjvjksr3[address] [place] [address]Dr. Swathi Reis CO2 [Moles/Vol] 28.9 mmol/L Normal 21.0-32.0 [facility] Comment on above: Performed By: #### B CASTING MACHINE SET UP OPERATOR, CMP ####[facility] Mdrtgalajz4[address] [place] [address]Dr. Swathi Reis Creatinine [Mass/Vol] 2.01 mg/dL Critically high 0.55-1.02 [facility] Comment on above: Performed By: #### B CASTING MACHINE SET UP OPERATOR, CMP ####[facility] [address] [place], [place] [address]Dr. Swathi Reis EGFR-AF ARGENTINE 29 mL/min/1.73m2 Critically low >=60 [facility] Comment on above: Performed By: #### B CASTING MACHINE SET UP OPERATOR, CMP ####[facility] Ccelpkbzrx[address] [place], [place] [address]Dr. Swathi Reis EGFR-NON AF ARGENTINE 24 mL/min/1.73m2 Critically low >=60 [facility] Comment on above: Performed By: #### B CASTING MACHINE SET UP OPERATOR, CMP ####[facility] Modjqventu[address] [place], [place] [address]Dr. Swathi Reis Globulin (S) [Mass/Vol] 3.6 g/dL Normal [facility] Comment on above: Performed By: #### B CASTING MACHINE SET UP OPERATOR, CMP ####[facility] Kmdmgstfcq[address] [place], [place] [address]Dr. Swathi Reis Glucose [Mass/Vol] 123 mg/dL Critically high 74-106 [facility] Comment on above: Performed By: #### B CASTING MACHINE SET UP OPERATOR, CMP ####[facility] Mgvnwzsvxf0[address] [place], [place] [address]Dr. Swathi Reis Potassium [Moles/Vol] 4.0 mmol/L Normal 3.5-5.1 [facility] Comment on above: Performed By: #### B CASTING MACHINE SET UP OPERATOR, CMP ####[facility] Abtsylvfgm[address] [place], [place] [address]Dr. Swathi Reis Protein [Mass/Vol] 6.1 g/dL Critically low 6.4-8.2 Th e [facility] Comment on above: Performed By: #### B CASTING MACHINE SET UP OPERATOR, CMP ####[facility] Dqjsvfjooz[address] [place], [place] [address]Dr. Swathi Reis Sodium [Moles/Vol] 142 mmol/L Normal 136-145 [facility] Comment on above: Performed By: #### B CASTING MACHINE SET UP OPERATOR, CMP ####[facility] Eebjeqgfgi[address] [place], [place] [address]Dr. Swathi Chato Urea nitrogen [Mass/Vol] 27.0 mg/dL Critically high 7.0-18.0 [facility] Comment on above: Performed By: #### B CASTING MACHINE SET UP OPERATOR, CMP ####[facility] Yjippcfuua[address] [place], [place] [address]Dr. Swathi Reis Urea nitrogen/Creatinine [Mass ratio] 13.4 mg/mg Normal [facility] Comment on above: Performed By: #### B CASTING MACHINE SET UP OPERATOR, CMP ####[facility] Mnfxcteyfr[address] [place], [place] [address]Dr. Swathi Chato BNPon 07-09-2022 Natriuretic peptide B (Bld) [Mass/Vol] 5933.0 pg/mL Critically high <=1,800.0 [facility] Comment on above: Performed By: #### B CASTING MACHINE SET UP OPERATOR, CMP ####[facility] Rvdcmwatup[address] [place], [place] [address]Dr. Swathi Chato CBC AUTO DIFFon 07-09-2022 BASO # 0.1 103/ul Normal 0.0-0.1 [facility] Comment on above: Performed By: #### C BC ####[facility] Qhpedibfll[address] [place], [place] [address]Dr. Swathi Reis Basophils/100 WBC (Bld) 0.5 % Normal 0.2-2.0 [facility] Comment on above: Performed By: #### C BC ####[facility] Okwmjpvtom[address] [place], [place] [address]Dr. Swathi Reis EO # 0.3 103/ul Normal 0.0-0.7 [facility] Comment on above: Performed By: #### C BC ####[facility] Jwgddbqaga94[address] [place] [id number]. Swathi Reis Eosinophils/100 WBC (Bld) 2.9 % Normal 0.9-7.0 [facility] Comment on above: Performed By: #### C BC ####[facility] Rvwywuytbd3244 [place] [address]Dr. Swathi Reis Erythrocyte distribution width (RBC) [Ratio] 13.4 % Normal 11.0-15.0 [facility] Comment on above: Performed By: #### C BC ####[facility] Ztvnxyztce[address] [place], [place] [address]Dr. Swathi Reis Hematocrit (Bld) [Volume fraction] 28.8 % Critically low 36.0-48.0 [facility] Comment on above: Performed By: #### C BC ####[facility] Ahqmqacqfo[address] [place], [place] [address]Dr. Swathi Reis Hemoglobin (Bld) [Mass/Vol] 9.2 g/dL Critically low 12.0-16.0 [facility] Comment on above: Performed By: #### C BC ####[facility] Nmkyitkjxd[address] [place], [place] [address]Dr. Swathi Reis IG # 0.04 10e3/ul Critically high 0.00-0.03 [facility] Comment on above: Performed By: #### C BC ####[facility] Gbjnvuiupe[address] [place], [place] [address]Dr. Swathi Reis IG % 0.4 % Normal 0.0-0.5 [facility] Comment on above: Performed By: #### C BC ####[facility] Fowoqcwpkk[address] [place], [place] [address]Dr. Swathi Reis LYMPH # 1.2 103/ul Normal 1.2-3.8 [facility] Comment on above: Performed By: #### C BC ####[facility] Nbnwhjeffk[address] [place], [place] [address]Dr. Swathi Reis Lymphocytes/100 WBC (Bld) 10.9 % Critically low 20.5-60.0 [facility] Comment on above: Performed By: #### C BC ####[facility] Tcqvasrncx7[address] [place] [address]Dr. Swathi Reis MANUAL DIFF REQ NO Normal [facility] Comment on above: Performed By: #### C BC ####[facility] Siscacuyam[address] [place] [id number]. Swathi Reis MCH (RBC) [Entitic mass] 30.0 pg Normal 26.7-34.0 [facility] Comment on above: Performed By: #### C BC ####[facility] Psqiqygcsj7879 [place] [address]Dr. Swathi Reis MCHC (RBC) [Mass/Vol] 31.9 g/dL Normal 29.9-35.2 [facility] Comment on above: Performed By: #### C BC ####[facility] Drzxvsohdj[address] [place], [place] [address]Dr. Swathi Reis MCV (RBC) [Entitic vol] 93.8 fL Normal 81.0-99.0 [facility] Comment on above: Performed By: #### C BC ####[facility] Lzjzwademw[address] [place], [place] [address]Dr. Swathi Reis MONO # 1.0 103/ul Critically high 0.3-0.8 [facility] Comment on above: Performed By: #### C BC ####[facility] Mnsnyexbmk[address] [place], [place] [address]Dr. Swathi Reis Monocytes/100 WBC (Bld) 9.6 % Normal 1.7-12.0 [facility] Comment on above: Performed By: #### C BC ####[facility] Wymoaxfnww[address] [place], [place] [address]DrOtto Reis NEUT # 8.0 103/ul Critically high 1.4-6.5 [facility] Comment on above: Performed By: #### C BC ####[facility] Owohljybne[address] [place], [place] [address]DrOtto Reis Neutrophils/100 WBC (Bld) 75.7 % Critically high 43.0-75.0 [facility] Comment on above: Performed By: #### C BC ####[facility] Dlykxzxijw0825 [place] [id number]. Swathi Reis Platelet mean volume (Bld) [Entitic vol] 10.6 fL Normal 9.5-13.5 [facility] Comment on above: Performed By: #### C BC ####[facility] Xcuezrlvti9953 [place] [phone]. Swathi Reis PLT 307 103/ul Normal 150-450 [facility] Comment on above: Performed By: #### C BC ####[facility] Sygukuvtvv9599 [place] [phone]. Inessatracy Chato RBC 3.07 106/ul Critically low 4.20-5.40 [facility] Comment on above: Performed By: #### C BC ####[facility] Gqhytxaakv5090 [place] [phone]. Inessatracy Chato WBC 10.6 103/ul Normal 4.0-11.0 [facility] Comment on above: Performed By: #### C BC ####[facility] Rnqmjbnvza9094 [place] [id number]. Swathi Reis POINT OF CARE GLUCOSEon 06-23 Glucose [Mass/Vol] 168 mg/dL Critically high 74-106 [facility] Comment on above: Performed By: #### P OCGLUC ####[facility] Jckgliaslu4397 [place] [address]Dr. Swathi Reis Glucose [Mass/Vol] 136 mg/dL Critically high 74-106 [facility] Comment on above: Performed By: #### P OCGLUC ####[facility] Ootgkbypzd[address] [place] [id number]. Swathi Reis Glucose [Mass/Vol] 203 mg/dL Critically high 74-106 [facility] Comment on above: Performed By: #### P OCGLUC ####[facility] Ccfjzpxhmp7612 [place] [id number] Reis PROF 14(COMP METB)on 10-17-2 022 Albumin [Mass/Vol] 2.6 g/dL Critically low 3.4-5.0 Th e [facility] Comment on above: Performed By: #### B CASTING MACHINE SET UP OPERATOR, CMP ####[facility] Wbxenzgyha[address]165 [place] [address]Dr. Swathi Reis Albumin/Globulin [Mass ratio] 0.7 {ratio} Normal [facility] Comment on above: Performed By: #### B CASTING MACHINE SET UP OPERATOR, CMP ####[facility] Tcvbsijail9724 [place] [address]Dr. Swathi Reis ALP [Catalytic activity/Vol] 73 U/L Normal 46-116 [facility] Comment on above: Performed By: #### B CASTING MACHINE SET UP OPERATOR, CMP ####[facility] Xlpiihlsxr[address] [place], [place] [address]Dr. Swathi Reis ALT [Catalytic activity/Vol] 12 U/L Critically low 14-59 [facility] Comment on above: Performed By: #### B CASTING MACHINE SET UP OPERATOR, CMP ####[facility] Fllivedyzp9557 [place] [address]Dr. Swathi Reis Anion gap [Moles/Vol] 12.4 mmol/L Normal [facility] Comment on above: Performed By: #### B CASTING MACHINE SET UP OPERATOR, CMP ####[facility] Tzeymuchwm[address] [place], [place] [address]Dr. Swathi Reis AST [Catalytic activity/Vol] 10 U/L Critically low 15-37 [facility] Comment on above: Performed By: #### B CASTING MACHINE SET UP OPERATOR, CMP ####[facility] Genfivvhwa7319 [place] [address]Dr. Swathi Reis Bilirubin [Mass/Vol] 0.5 mg/dL Normal 0.2-1.0 [facility] Comment on above: Performed By: #### B CASTING MACHINE SET UP OPERATOR, CMP ####[facility] Pqcdeojnuj[address] [place], [place] [address]Dr. Swathi Reis Calcium [Mass/Vol] 8.7 mg/dL Normal 8.5-10.1 [facility] Comment on above: Performed By: #### B CASTING MACHINE SET UP OPERATOR, CMP ####[facility] Xlcwhzrsko[address] [place], [place] [address]Dr. Swathi Reis Chloride [Moles/Vol] 105 mmol/L Normal 98-107 [facility] Comment on above: Performed By: #### B CASTING MACHINE SET UP OPERATOR, CMP ####[facility] Ucewmxakqp0569 [place] [address]Dr. Swathi Reis CO2 [Moles/Vol] 27.3 mmol/L Normal 21.0-32.0 The [facility] Comment on above: Performed By: #### B CASTING MACHINE SET UP OPERATOR, CMP ####[facility] Oespsbltni[address] [place], [place] [address]Dr. Swathi Reis Creatinine [Mass/Vol] 2.02 mg/dL Critically high 0.55-1.02 [facility] Comment on above: Performed By: #### B CASTING MACHINE SET UP OPERATOR, CMP ####[facility] Szfbsjfphp[address] [place], [place] [address]Dr. Swathi Reis EGFR-AF ARGENTINE 29 mL/min/1.73m2 Critically low >=60 [facility] Comment on above: Performed By: #### B CASTING MACHINE SET UP OPERATOR, CMP ####[facility] Xunhglglaw[address] [place], [place] [address]Dr. Swathi Reis EGFR-NON AF ARGENTINE 24 mL/min/1.73m2 Critically low >=60 [facility] Comment on above: Performed By: #### B CASTING MACHINE SET UP OPERATOR, CMP ####[facility] Nqioigsqhe[address] [place], [place] [address]Dr. Swathi Reis Globulin (S) [Mass/Vol] 3.6 g/dL Normal [facility] Comment on above: Performed By: #### B CASTING MACHINE SET UP OPERATOR, CMP ####[facility] Zmerpvvxfm1196 [place] [address]Dr. Swathi Reis Glucose [Mass/Vol] 134 mg/dL Critically high 74-106 [facility] Comment on above: Performed By: #### B CASTING MACHINE SET UP OPERATOR, CMP ####[facility] Tzdxzungvj[address] [place], [place] [address]Dr. Swathi Reis Potassium [Moles/Vol] 3.7 mmol/L Normal 3.5-5.1 [facility] Comment on above: Performed By: #### B CASTING MACHINE SET UP OPERATOR, CMP ####[facility] Vziprzxsip4808 [place] [address]Dr. Swathi Reis Protein [Mass/Vol] 6.2 g/dL Critically low 6.4-8.2 Th e [facility] Comment on above: Performed By: #### B CASTING MACHINE SET UP OPERATOR, CMP ####[facility] Sznlxbydku[address] [place], [place] [address]Dr. Swathi Reis Sodium [Moles/Vol] 141 mmol/L Normal 136-145 [facility] Comment on above: Performed By: #### B CASTING MACHINE SET UP OPERATOR, CMP ####[facility] S[address]qgmzzjr[address] [place], [place] [address]Dr. Swathi Reis Urea nitrogen [Mass/Vol] 29.0 mg/dL Critically high 7.0-18.0 [facility] Comment on above: Performed By: #### B CASTING MACHINE SET UP OPERATOR, CMP ####[facility] Tmdvqnofmr[address] [place], [place] [address]Dr. Inessatracy Reis Urea nitrogen/Creatinine [Mass ratio] 14.4 mg/mg Normal [facility] Comment on above: Performed By: #### B CASTING MACHINE SET UP OPERATOR, CMP ####[facility] Ccbhweyiki[address] [place], [place] [address]Dr. Swathi Reis XR CHEST 2 Von 07-09-2022 XR CHEST 2 V Normal [facility] BNPon 07-08-2022 Natriuretic peptide B (Bld) [Mass/Vol] 6044.0 pg/mL Critically high <=1,800.0 [facility] Comment on above: Performed By: #### B CASTING MACHINE SET UP OPERATOR, CMP ####[facility] Yngkzqtvzw[address] [place], [place] [address]Dr. Swathi Reis CBC AUTO DIFFon 07-08-2022 BASO # 0.1 103/ul Normal 0.0-0.1 [facility] Comment on above: Performed By: #### C BC ####[facility] Kwywcsmicp[address] [place], [place] [address]Dr. Swathi Chato Basophils/100 WBC (Bld) 0.7 % Normal 0.2-2.0 [facility] Comment on above: Performed By: #### C BC ####[facility] Fqegxeunvu2589 [place] [id number]. Swathi Reis EO # 0.3 103/ul Normal 0.0-0.7 [facility] Comment on above: Performed By: #### C BC ####[facility] Mnytfcrveh8991 [place] [address]Dr. Swathi Reis Eosinophils/100 WBC (Bld) 2.9 % Normal 0.9-7.0 [facility] Comment on above: Performed By: #### C BC ####[facility] Xavhzbygwb7499 [place] [address]Dr. Swathi Reis Erythrocyte distribution width (RBC) [Ratio] 13.5 % Normal 11.0-15.0 [facility] Comment on above: Performed By: #### C BC ####[facility] U[address]cfqpb[address] [place], [place] [address]Dr. Swathi Reis Hematocrit (Bld) [Volume fraction] 29.9 % Critically low 36.0-48.0 [facility] Comment on above: Performed By: #### C BC ####[facility] Nasqomsxei[address] [place], [place] [address]Dr. Swathi Reis Hemoglobin (Bld) [Mass/Vol] 9.5 g/dL Critically low 12.0-16.0 [facility] Comment on above: Performed By: #### C BC ####[facility] Zbvcksazph7685 [place] [address]Dr. Swathi Reis IG # 0.03 10e3/ul Normal 0.00-0.03 [facility] Comment on above: Performed By: #### C BC ####[facility] Vrdxdeioie0433 [place] [address]Dr. Swathi Reis IG % 0.3 % Normal 0.0-0.5 [facility] Comment on above: Performed By: #### C BC ####[facility] Rnhwltbdpc4899 [place] [address]Dr. Swathi Reis LYMPH # 0.9 103/ul Critically low 1.2-3.8 The [facility] Comment on above: Performed By: #### C BC ####[facility] Pocivkgsnv4790 [place] [id number]. Swathi Reis Lymphocytes/100 WBC (Bld) 8.4 % Critically low 20.5-60.0 [facility] Comment on above: Performed By: #### C BC ####[facility] Xgtvhxjfgo9771 [place] [id number]. Swathi Chato MANUAL DIFF REQ NO Normal [facility] Comment on above: Performed By: #### C BC ####[facility] Lpxiucgvnh2331 [place] [phone]. Swathi Chato MCH (RBC) [Entitic mass] 30.1 pg Normal 26.7-34.0 [facility] Comment on above: Performed By: #### C BC ####[facility] Gavnpncpdk9885 [place] [id number]. Swathi Chato MCHC (RBC) [Mass/Vol] 31.8 g/dL Normal 29.9-35.2 [facility] Comment on above: Performed By: #### C BC ####[facility] Gxffoxmtnq2685 [place] [id number]. Swathi Reis MCV (RBC) [Entitic vol] 94.6 fL Normal 81.0-99.0 [facility] Comment on above: Performed By: #### C BC ####[facility] Rteiiihlzm2589 [place] [id number]. Swathi Chato MONO # 1.0 103/ul Critically high 0.3-0.8 [facility] Comment on above: Performed By: #### C BC ####[facility] Jhsbiheimu6561 [place] [id number]. Inessatracy Reis Monocytes/100 WBC (Bld) 9.5 % Normal 1.7-12.0 [facility] Comment on above: Performed By: #### C BC ####[facility] Rqrabnnmty8914 [place] [id number]. Swathi Reis NEUT # 8.3 103/ul Critically high 1.4-6.5 [facility] Comment on above: Performed By: #### C BC ####[facility] Wkgxgzojlg9660 [place] [phone]. Swathi Reis Neutrophils/100 WBC (Bld) 78.2 % Critically high 43.0-75.0 [facility] Comment on above: Performed By: #### C BC ####[facility] Nqoruqjkis4606 [place] [phone]. Swathi Reis Platelet mean volume (Bld) [Entitic vol] 10.7 fL Normal 9.5-13.5 [facility] Comment on above: Performed By: #### C BC ####[facility] Kcxwfqdwmv1742 [place] [phone]. Swathi Reis PLT 273 103/ul Normal 150-450 [facility] Comment on above: Performed By: #### C BC ####[facility] Wvbeacttpo9385 [place] [phone]. Swathi Reis RBC 3.16 106/ul Critically low 4.20-5.40 [facility] Comment on above: Performed By: #### C BC ####[facility] Ricvabvdut8378 [place] [id number]. Swathi Reis WBC 10.6 103/ul Normal 4.0-11.0 [facility] Comment on above: Performed By: #### C BC ####[facility] Scnexciyxn3998 [place] [id number]. Swathi Reis POINT OF CARE GLUCOSEon 06-23 Glucose [Mass/Vol] 243 mg/dL Critically high 74-106 [facility] Comment on above: Performed By: #### P OCGLUC ####[facility] Nakdxpxkzq0425 [place] [phone]. Swathi Reis Glucose [Mass/Vol] 161 mg/dL Critically high 74-106 [facility] Comment on above: Performed By: #### P OCGLUC ####[facility] Pshnjmgiir5592 [place] [id number]. Swathi Reis Glucose [Mass/Vol] 186 mg/dL Critically high 74-106 [facility] Comment on above: Performed By: #### P OCGLUC ####[facility] Zihuhplgcu7662 [place] [phone]. Swathi Reis Glucose [Mass/Vol] 168 mg/dL Critically high 74-106 T [facility] Comment on above: Performed By: #### P OCGLUC ####[facility] Voxeeomsee5521 [place] [address]Dr. Swathi Reis PROF 14(COMP METB)on 07-08- 022 Albumin [Mass/Vol] 2.5 g/dL Critically low 3.4-5.0 Th [facility] Comment on above: Performed By: #### B CASTING MACHINE SET UP OPERATOR, CMP ####[facility] Nznfgeaprc4976 [place] [address]Dr. Swathi Reis Albumin/Globulin [Mass ratio] 0.7 {ratio} Normal [facility] Comment on above: Performed By: #### B CASTING MACHINE SET UP OPERATOR, CMP ####[facility] Rmxplujtmo[address] [place], [place] [address]Dr. Swathi Reis ALP [Catalytic activity/Vol] 77 U/L Normal 46-116 [facility] Comment on above: Performed By: #### B CASTING MACHINE SET UP OPERATOR, CMP ####[facility] Vrhtnryeou3943 [place] [address]Dr. Swathi Reis ALT [Catalytic activity/Vol] 16 U/L Normal 14-59 [facility] Comment on above: Performed By: #### B CASTING MACHINE SET UP OPERATOR, CMP ####[facility] Hmpdygcugy0283 [place] [address]Dr. Swathi Reis Anion gap [Moles/Vol] 11.9 mmol/L Normal [facility] Comment on above: Performed By: #### B CASTING MACHINE SET UP OPERATOR, CMP ####[facility] Ernnoeygvd8323 [place] [address]Dr. Swathi Reis AST [Catalytic activity/Vol] 13 U/L Critically low 15-37 [facility] Comment on above: Performed By: #### B CASTING MACHINE SET UP OPERATOR, CMP ####[facility] Nwpaueoaff2827 [place] [address]Dr. Swathi Reis Bilirubin [Mass/Vol] 0.6 mg/dL Normal 0.2-1.0 [facility] Comment on above: Performed By: #### B CASTING MACHINE SET UP OPERATOR, CMP ####[facility] Tjypchpgyu9956 [place] [phone]. Swathi Reis Calcium [Mass/Vol] 8.7 mg/dL Normal 8.5-10.1 [facility] Comment on above: Performed By: #### B CASTING MACHINE SET UP OPERATOR, CMP ####[facility] Brgbtprrkr1544 [place] [address]Dr. Swathi Reis Chloride [Moles/Vol] 105 mmol/L Normal 98-107 [facility] Comment on above: Performed By: #### B CASTING MACHINE SET UP OPERATOR, CMP ####[facility] Txvylnewmi[address] [place], [place] [address]Dr. Swathi Reis CO2 [Moles/Vol] 26.6 mmol/L Normal 21.0-32.0 [facility] Comment on above: Performed By: #### B CASTING MACHINE SET UP OPERATOR, CMP ####[facility] Nzwumretqn[address] [place], [place] [address]Dr. Swathi Reis Creatinine [Mass/Vol] 1.54 mg/dL Critically high 0.55-1.02 [facility] Comment on above: Performed By: #### B CASTING MACHINE SET UP OPERATOR, CMP ####[facility] Whrypvvckf[address] [place], [place] [address]Dr. Swathi Reis EGFR-AF ARGENTINE 40 mL/min/1.73m2 Critically low >=60 [facility] Comment on above: Performed By: #### B CASTING MACHINE SET UP OPERATOR, CMP ####[facility] Anidlprhqz6[address] [place], [place] [address]Dr. Swathi Reis EGFR-NON AF ARGENTINE 33 mL/min/1.73m2 Critically low >=60 [facility] Comment on above: Performed By: #### B CASTING MACHINE SET UP OPERATOR, CMP ####[facility] Gydymokuol7[address] [place], [place] [address]Dr. Swathi Reis Globulin (S) [Mass/Vol] 3.8 g/dL Normal [facility] Comment on above: Performed By: #### B CASTING MACHINE SET UP OPERATOR, CMP ####[facility] Twzzzagkqh[address] [place], [place] [address]Dr. Swathi Reis Glucose [Mass/Vol] 153 mg/dL Critically high 74-106 T [facility] Comment on above: Performed By: #### B CASTING MACHINE SET UP OPERATOR, CMP ####[facility] Uufixzhjuu[address] [place], [place] [address]Dr. Swathi Reis Potassium [Moles/Vol] 3.5 mmol/L Normal 3.5-5.1 [facility] Comment on above: Performed By: #### B CASTING MACHINE SET UP OPERATOR, CMP ####[facility] Gwdsxnvyqf[address] [place], [place] [address]Dr. Swathi Reis Protein [Mass/Vol] 6.3 g/dL Critically low 6.4-8.2 Th [facility] Comment on above: Performed By: #### B CASTING MACHINE SET UP OPERATOR, CMP ####[facility] Wwrbbfeqpy[address] [place], [place] [address]Dr. Swathi Reis Sodium [Moles/Vol] 140 mmol/L Normal 136-145 [facility] Comment on above: Performed By: #### B CASTING MACHINE SET UP OPERATOR, CMP ####[facility] Zyoieijltq[address] [place], [place] [address]Dr. Swathi Reis Urea nitrogen [Mass/Vol] 25.0 mg/dL Critically high 7.0-18.0 [facility] Comment on above: Performed By: #### B CASTING MACHINE SET UP OPERATOR, CMP ####[facility] Irveiwdccg[address] [place], [place] [address]Dr. Inessatracy Reis Urea nitrogen/Creatinine [Mass ratio] 16.2 mg/mg Normal [facility] Comment on above: Performed By: #### B CASTING MACHINE SET UP OPERATOR, CMP ####[facility] Xxnfkuzuir[address] [place], [place] [address]Dr. Swathi Chato BNPon 07-07-2022 Natriuretic peptide B (Bld) [Mass/Vol] 6413.0 pg/mL Critically high <=1,800.0 [facility] Comment on above: Performed By: #### B CASTING MACHINE SET UP OPERATOR, CMP ####[facility] Rwdffntgxh[address] [place], [place] [address]Dr. Inessatracy Chato CBC AUTO DIFFon 07-07-2022 BASO # 0.1 103/ul Normal 0.0-0.1 [facility] Comment on above: Performed By: #### C BC ####[facility] [address] [place] [id number]. Swathi Reis Basophils/100 WBC (Bld) 0.4 % Normal 0.2-2.0 [facility] Comment on above: Performed By: #### C BC ####[facility] Ejyaezgejz[address] [place], [place] [id number]. Swathi Reis EO # 0.3 103/ul Normal 0.0-0.7 [facility] Comment on above: Performed By: #### C BC ####[facility] Hxxxbyfseo[address] [place], [place] [address]Dr. Swathi Reis Eosinophils/100 WBC (Bld) 2.6 % Normal 0.9-7.0 [facility] Comment on above: Performed By: #### C BC ####[facility] Onhvfdxipb[address] [place], [place] [address]Dr. Swathi Reis Erythrocyte distribution width (RBC) [Ratio] 13.7 % Normal 11.0-15.0 [facility] Comment on above: Performed By: #### C BC ####[facility] Biksuwggtk[address] [place], [place] [address]Dr. Swathi Reis Hematocrit (Bld) [Volume fraction] 28.9 % Critically low 36.0-48.0 [facility] Comment on above: Performed By: #### C BC ####[facility] Molfdtmakg[address] [place], [place] [id number]. Swathi Reis Hemoglobin (Bld) [Mass/Vol] 9.3 g/dL Critically low 12.0-16.0 [facility] Comment on above: Performed By: #### C BC ####[facility] Ihlqekatfq[address] [place], [place] [address]Dr. Swathi Reis IG # 0.04 10e3/ul Critically high 0.00-0.03 [facility] Comment on above: Performed By: #### C BC ####[facility] Nwgcyjknhz[address] [place], [place] [address]Dr. Swathi Reis IG % 0.4 % Normal 0.0-0.5 [facility] Comment on above: Performed By: #### C BC ####[facility] Nitfvtozpe0652 [place] [id number]. Swathi Reis LYMPH # 1.0 103/ul Critically low 1.2-3.8 [facility] Comment on above: Performed By: #### C BC ####[facility] Exqtrfzykd7[address] [place] [id number]. Swathi Reis Lymphocytes/100 WBC (Bld) 8.6 % Critically low 20.5-60.0 [facility] Comment on above: Performed By: #### C BC ####[facility] Nvlzyepgup33[address] [place] [id number]. Swathi Reis MANUAL DIFF REQ NO Normal [facility] Comment on above: Performed By: #### C BC ####[facility] Fevtnandix7574 [place] [id number]. Swathi Reis MCH (RBC) [Entitic mass] 30.0 pg Normal 26.7-34.0 [facility] Comment on above: Performed By: #### C BC ####[facility] Bhnamobmpv7093 [place] [id number]. Swathi Reis MCHC (RBC) [Mass/Vol] 32.2 g/dL Normal 29.9-35.2 [facility] Comment on above: Performed By: #### C BC ####[facility] Antmucadzc9934 [place] [phone]. Swathi Reis MCV (RBC) [Entitic vol] 93.2 fL Normal 81.0-99.0 [facility] Comment on above: Performed By: #### C BC ####[facility] Ceqlzpimyx[address] [place] [phone]. Swathi Reis MONO # 1.0 103/ul Critically high 0.3-0.8 The [facility] Comment on above: Performed By: #### C BC ####[facility] Iyavplkhck4009 [place] [id number]. Swathi Reis Monocytes/100 WBC (Bld) 9.0 % Normal 1.7-12.0 [facility] Comment on above: Performed By: #### C BC ####[facility] Pndejzawrf28[address] [place] [phone]. Swathi Reis NEUT # 9.0 103/ul Critically high 1.4-6.5 [facility] Comment on above: Performed By: #### C BC ####[facility] Huvcumaiup3634 [place] [phone]. Swathi Reis Neutrophils/100 WBC (Bld) 79.0 % Critically high 43.0-75.0 [facility] Comment on above: Performed By: #### C BC ####[facility] Sqneenibyp10[address] [place] [id number]. Swathi Reis Platelet mean volume (Bld) [Entitic vol] 10.7 fL Normal 9.5-13.5 [facility] Comment on above: Performed By: #### C BC ####[facility] Yridfljkws8941 [place] [id number]. Swathi Reis PLT 264 103/ul Normal 150-450 [facility] Comment on above: Performed By: #### C BC ####[facility] Qznatmstyo4344 [place] [phone]. Swathi Reis RBC 3.10 106/ul Critically low 4.20-5.40 [facility] Comment on above: Performed By: #### C BC ####[facility] Ezayfcvgtd8203 [place] [phone]. Swathi Reis WBC 11.4 103/ul Critically high 4.0-11.0 [facility] Comment on above: Performed By: #### C BC ####[facility] Rbjfllqtwy3743 [place] [phone]. Swathi Chato POINT OF CARE GLUCOSEon 06-23 Glucose [Mass/Vol] 298 mg/dL Critically high 74-106 [facility] Comment on above: Performed By: #### P OCGLUC ####[facility] Inatidfvwu7924 [place] [id number]. Swathi Chato Glucose [Mass/Vol] 123 mg/dL Critically high 74-106 [facility] Comment on above: Performed By: #### P OCGLUC ####[facility] Twqegkkykc77[address] [place] [address]Dr. Swathi Reis Glucose [Mass/Vol] 263 mg/dL Critically high 74-106 [facility] Comment on above: Performed By: #### P OCGLUC ####[facility] Aatcrepgib4005 [place] [address]Dr. Swathi Reis Glucose [Mass/Vol] 151 mg/dL Critically high 74-106 [facility] Comment on above: Performed By: #### P OCGLUC ####[facility] Azgreepzce9702 [place] [address]Dr. Swathi Reis PROF 14(COMP METB)on 07-07- 022 Albumin [Mass/Vol] 2.5 g/dL Critically low 3.4-5.0 [facility] Comment on above: Performed By: #### B CASTING MACHINE SET UP OPERATOR, CMP ####[facility] Rmevwhvqhw[address] [place], [place] [address]Dr. Swathi Reis Albumin/Globulin [Mass ratio] 0.7 {ratio} Normal [facility] Comment on above: Performed By: #### B CASTING MACHINE SET UP OPERATOR, CMP ####[facility] Gjfpaxzxxr46[address] [place], [place] [address]Dr. Swathi Reis ALP [Catalytic activity/Vol] 82 U/L Normal 46-116 [facility] Comment on above: Performed By: #### B CASTING MACHINE SET UP OPERATOR, CMP ####[facility] Kntcugobkr[address] [place], [place] [address]Dr. Swathi Reis ALT [Catalytic activity/Vol] 13 U/L Critically low 14-59 [facility] Comment on above: Performed By: #### B CASTING MACHINE SET UP OPERATOR, CMP ####[facility] Tgrxxmzrxy59[address] [place], [place] [address]Dr. Swathi Reis Anion gap [Moles/Vol] 11.5 mmol/L Normal [facility] Comment on above: Performed By: #### B CASTING MACHINE SET UP OPERATOR, CMP ####[facility] Qoyrzgcwzp[address] [place], [place] [address]Dr. Swathi Reis AST [Catalytic activity/Vol] 12 U/L Critically low 15-37 [facility] Comment on above: Performed By: #### B CASTING MACHINE SET UP OPERATOR, CMP ####[facility] Krlxelrdcx89[address] [place], [place] [address]Dr. Swathi Reis Bilirubin [Mass/Vol] 0.7 mg/dL Normal 0.2-1.0 [facility] Comment on above: Performed By: #### B CASTING MACHINE SET UP OPERATOR, CMP ####[facility] Pkwwigfajp[address] [place], [place] [address]Dr. Swathi Reis Calcium [Mass/Vol] 8.6 mg/dL Normal 8.5-10.1 [facility] Comment on above: Performed By: #### B CASTING MACHINE SET UP OPERATOR, CMP ####[facility] Vpluscbkgb[address] [place], [place] [address]Dr. Swathi Reis Chloride [Moles/Vol] 104 mmol/L Normal 98-107 [facility] Comment on above: Performed By: #### B CASTING MACHINE SET UP OPERATOR, CMP ####[facility] Ovzyxzszeg[address] [place], [place] [address]Dr. Swathi Reis CO2 [Moles/Vol] 26.6 mmol/L Normal 21.0-32.0 [facility] Comment on above: Performed By: #### B CASTING MACHINE SET UP OPERATOR, CMP ####[facility] Htxpzuxgwq[address] [place], [place] [address]Dr. Swathi Reis Creatinine [Mass/Vol] 1.56 mg/dL Critically high 0.55-1.02 [facility] Comment on above: Performed By: #### B CASTING MACHINE SET UP OPERATOR, CMP ####[facility] Gkbacjnwjo[address] [place], [place] [address]Dr. Swathi Reis EGFR-AF ARGENTINE 39 mL/min/1.73m2 Critically low >=60 [facility] Comment on above: Performed By: #### B CASTING MACHINE SET UP OPERATOR, CMP ####[facility] Ysphxdpaqk[address] [place], [place] [address]Dr. Swathi Reis EGFR-NON AF ARGENTINE 32 mL/min/1.73m2 Critically low >=60 [facility] Comment on above: Performed By: #### B CASTING MACHINE SET UP OPERATOR, CMP ####[facility] Cdhtkzsrum3712 [place] [address]Dr. Swathi Reis Globulin (S) [Mass/Vol] 3.7 g/dL Normal [facility] Comment on above: Performed By: #### B CASTING MACHINE SET UP OPERATOR, CMP ####[facility] Adtxpvwplc18[address] [place], [place] [address]Dr. Swathi Reis Glucose [Mass/Vol] 149 mg/dL Critically high 74-106 [facility] Comment on above: Performed By: #### B CASTING MACHINE SET UP OPERATOR, CMP ####[facility] Rzadyqdpck5136 [place] [address]Dr. Swathi Reis Potassium [Moles/Vol] 3.1 mmol/L Critically low 3.5-5.1 [facility] Comment on above: Performed By: #### B CASTING MACHINE SET UP OPERATOR, CMP ####[facility] Tgooylspaj[address] [place], [place] [address]Dr. Swathi Reis Protein [Mass/Vol] 6.2 g/dL Critically low 6.4-8.2 [facility] Comment on above: Performed By: #### B CASTING MACHINE SET UP OPERATOR, CMP ####[facility] Ipzqlkieci[address] [place], [place] [address]Dr. Swathi Reis Sodium [Moles/Vol] 139 mmol/L Normal 136-145 [facility] Comment on above: Performed By: #### B CASTING MACHINE SET UP OPERATOR, CMP ####[facility] Eqlctnyddm[address] [place], [place] [address]Dr. Swathi Reis Urea nitrogen [Mass/Vol] 19.0 mg/dL Critically high 7.0-18.0 [facility] Comment on above: Performed By: #### B CASTING MACHINE SET UP OPERATOR, CMP ####[facility] Lnubxwxjgk[address] [place], [place] [address]Dr. Swathi Reis Urea nitrogen/Creatinine [Mass ratio] 12.2 mg/mg Normal [facility] Comment on above: Performed By: #### B CASTING MACHINE SET UP OPERATOR, CMP ####[facility] Hbeshccebc[address] [place], [place] [address]Dr. Swathi Reis BNPon 07-06-2022 Natriuretic peptide B (Bld) [Mass/Vol] 4734.0 pg/mL Critically high <=1,800.0 [facility] Comment on above: Performed By: #### B CASTING MACHINE SET UP OPERATOR, CMP ####[facility] Uoebkieeue[address] [place], [place] [address]Dr. Inessatracy Reis CBC AUTO DIFFon 07-06-2022 BASO # 0.0 103/ul Normal 0.0-0.1 [facility] Comment on above: Performed By: #### C BC ####[facility] Tiopwvfjvh4[address] [place], [place] [address]Dr. Swathi Reis Basophils/100 WBC (Bld) 0.3 % Normal 0.2-2.0 [facility] Comment on above: Performed By: #### C BC ####[facility] Vjbvuuxxnw[address] [place], [place] [address]Dr. Swathi Reis EO # 0.0 103/ul Normal 0.0-0.7 [facility] Comment on above: Performed By: #### C BC ####[facility] Vcogcrzvks[address] [place], [place] [address]Dr. Swathi Reis Eosinophils/100 WBC (Bld) 0.1 % Critically low 0.9-7.0 [facility] Comment on above: Performed By: #### C BC ####[facility] Qufenvisvp[address] [place], [place] [address]Dr. Swathi Reis Erythrocyte distribution width (RBC) [Ratio] 13.5 % Normal 11.0-15.0 [facility] Comment on above: Performed By: #### C BC ####[facility] Dyxokvhdof[address] [place], [place] [address]DrOtto Reis Hematocrit (Bld) [Volume fraction] 29.6 % Critically low 36.0-48.0 [facility] Comment on above: Performed By: #### C BC ####[facility] Lzjufcguiy[address] [place], [place] [address]Dr. Swathi Reis Hemoglobin (Bld) [Mass/Vol] 9.6 g/dL Critically low 12.0-16.0 [facility] Comment on above: Performed By: #### C BC ####[facility] Ufxsqiwhqf[address] [place], [place] [address]DrOtto Reis IG # 0.07 10e3/ul Critically high 0.00-0.03 [facility] Comment on above: Performed By: #### C BC ####[facility] Bfesqquicw9[address] [place] [address]DrOtto Reis IG % 0.5 % Normal 0.0-0.5 [facility] Comment on above: Performed By: #### C BC ####[facility] Oaccmdsxnw3778 [place] [address]DrOtto Reis LYMPH # 1.4 103/ul Normal 1.2-3.8 [facility] Comment on above: Performed By: #### C BC ####[facility] Pvnzcdgnoj3645 [place] [address]DrOtto Reis Lymphocytes/100 WBC (Bld) 9.7 % Critically low 20.5-60.0 [facility] Comment on above: Performed By: #### C BC ####[facility] Mcvjfcnhft[address] [place], [place] [address]DrOtto Reis MANUAL DIFF REQ NO Normal [facility] Comment on above: Performed By: #### C BC ####[facility] Mrljpolqoc6598 [place] [address]DrOtto Reis MCH (RBC) [Entitic mass] 29.9 pg Normal 26.7-34.0 [facility] Comment on above: Performed By: #### C BC ####[facility] Psfhsujsin7932 [place] [address]DrOtto Reis MCHC (RBC) [Mass/Vol] 32.4 g/dL Normal 29.9-35.2 [facility] Comment on above: Performed By: #### C BC ####[facility] Ezbpxvwlri2386 [place] [address]DrOtto Reis MCV (RBC) [Entitic vol] 92.2 fL Normal 81.0-99.0 [facility] Comment on above: Performed By: #### C BC ####[facility] Igfusmdtxq[address] [place], [place] [address]DrOtto Reis MONO # 1.3 103/ul Critically high 0.3-0.8 [facility] Comment on above: Performed By: #### C BC ####[facility] Izmmlwyjqc6839 [place] [address]Dr. Swathi Reis Monocytes/100 WBC (Bld) 9.4 % Normal 1.7-12.0 [facility] Comment on above: Performed By: #### C BC ####[facility] Wkmdmiddho2365 [place] [address]Dr. Swathi Reis NEUT # 11.4 103/ul Critically high 1.4-6.5 The [facility] Comment on above: Performed By: #### C BC ####[facility] Tmlizmyrvc5019 [place] [address]Dr. Swathi Reis Neutrophils/100 WBC (Bld) 80.0 % Critically high 43.0-75.0 [facility] Comment on above: Performed By: #### C BC ####[facility] Izvycsyonl[address] [place], [place] [address]Dr. Swathi Reis Platelet mean volume (Bld) [Entitic vol] 10.6 fL Normal 9.5-13.5 [facility] Comment on above: Performed By: #### C BC ####[facility] Dugdmyjusg[address] [place], [place] [address]Dr. Swathi Reis PLT 283 103/ul Normal 150-450 [facility] Comment on above: Performed By: #### C BC ####[facility] Jzgueiuvya1041 [place] [address]Dr. Swathi Reis RBC 3.21 106/ul Critically low 4.20-5.40 The [facility] Comment on above: Performed By: #### C BC ####[facility] Eslqsczrdw[address] [place], [place] [address]DrOtto Swathi Reis WBC 14.2 103/ul Critically high 4.0-11.0 The [facility] Comment on above: Performed By: #### C BC ####[facility] Vlyeyslfhs[address] [place], [place] [address]DrOtto Reis ECHOCARDIO M/2D COMPLETEon 1 0-14-2022 ECHOCARDIO M/2D COMPLETE Normal [facility] POINT OF CARE GLUCOSEon 06-23 Glucose [Mass/Vol] 227 mg/dL Critically high 74-106 [facility] Comment on above: Performed By: #### P OCGLUC ####[facility] Uvjdhukrxv2279 [place] [address]Dr. Swathi Reis Glucose [Mass/Vol] 175 mg/dL Critically high 74-106 [facility] Comment on above: Performed By: #### P OCGLUC ####[facility] Lpynhzsrmn5442 [place] [address]Dr. Swathi Reis PROF 14(COMP METB)on 022 Albumin [Mass/Vol] 2.6 g/dL Critically low 3.4-5.0 Th [facility] Comment on above: Performed By: #### B CASTING MACHINE SET UP OPERATOR, CMP ####[facility] Fodofqhoma[address] [place], [place] [address]Dr. Swathi Reis Albumin/Globulin [Mass ratio] 0.7 {ratio} Normal [facility] Comment on above: Performed By: #### B CASTING MACHINE SET UP OPERATOR, CMP ####[facility] Smlcemgyfz8[address] [place], [place] [address]Dr. Swathi Reis ALP [Catalytic activity/Vol] 79 U/L Normal 46-116 [facility] Comment on above: Performed By: #### B CASTING MACHINE SET UP OPERATOR, CMP ####[facility] Ynnngykltk9163 [place] [address]Dr. Swathi Reis ALT [Catalytic activity/Vol] 17 U/L Normal 14-59 [facility] Comment on above: Performed By: #### B CASTING MACHINE SET UP OPERATOR, CMP ####[facility] Rnpbyuqjia8966 [place] [address]Dr. Swathi Reis Anion gap [Moles/Vol] 11.5 mmol/L Normal [facility] Comment on above: Performed By: #### B CASTING MACHINE SET UP OPERATOR, CMP ####[facility] Rdgothrfen[address] [place], [place] [address]Dr. Swathi Reis AST [Catalytic activity/Vol] 11 U/L Critically low 15-37 [facility] Comment on above: Performed By: #### B CASTING MACHINE SET UP OPERATOR, CMP ####[facility] Lgiitwxyaw5528 [place] [id number]. Swathi Reis Bilirubin [Mass/Vol] 0.9 mg/dL Normal 0.2-1.0 [facility] Comment on above: Performed By: #### B CASTING MACHINE SET UP OPERATOR, CMP ####[facility] Jhwtdygwom[address] [place], [place] [address]Dr. Swathi Reis Calcium [Mass/Vol] 8.3 mg/dL Critically low 8.5-10.1 Th e [facility] Comment on above: Performed By: #### B CASTING MACHINE SET UP OPERATOR, CMP ####[facility] Qsppscqelb324[address] [place], [place] [address]Dr. Swathi Chato Chloride [Moles/Vol] 102 mmol/L Normal 98-107 [facility] Comment on above: Performed By: #### B CASTING MACHINE SET UP OPERATOR, CMP ####[facility] Czegyjjxzi[address] [place], [place] [address]Dr. Swathi Reis CO2 [Moles/Vol] 29.5 mmol/L Normal 21.0-32.0 The [facility] Comment on above: Performed By: #### B CASTING MACHINE SET UP OPERATOR, CMP ####[facility] Wngxgaegwy[address] [place], [place] [address]Dr. Swathi Reis Creatinine [Mass/Vol] 1.47 mg/dL Critically high 0.55-1.02 [facility] Comment on above: Performed By: #### B CASTING MACHINE SET UP OPERATOR, CMP ####[facility] Stzlrdcazi[address] [place], [place] [address]Dr. Swathi Chato EGFR-AF ARGENTINE 42 mL/min/1.73m2 Critically low >=60 The [facility] Comment on above: Performed By: #### B CASTING MACHINE SET UP OPERATOR, CMP ####[facility] Yaldcikvfk[address] [place], [place] [address]Dr. Inessatracy Chato EGFR-NON AF ARGENTINE 34 mL/min/1.73m2 Critically low >=60 The [facility] Comment on above: Performed By: #### B CASTING MACHINE SET UP OPERATOR, CMP ####[facility] Cafpaxzrni[address] [place], [place] [address]Dr. Swathi Reis Globulin (S) [Mass/Vol] 3.7 g/dL Normal [facility] Comment on above: Performed By: #### B CASTING MACHINE SET UP OPERATOR, CMP ####[facility] Putckwfxiq64[address] [place], [place] [address]Dr. Swathi Reis Glucose [Mass/Vol] 150 mg/dL Critically high 74-106 T [facility] Comment on above: Performed By: #### B CASTING MACHINE SET UP OPERATOR, CMP ####[facility] Kfczgkwcfb86[address] [place], [place] [address]Dr. Swathi Reis Potassium [Moles/Vol] 3.0 mmol/L Critically low 3.5-5.1 [facility] Comment on above: Performed By: #### B CASTING MACHINE SET UP OPERATOR, CMP ####[facility] Ilvrukrawz[address] [place], [place] [address]Dr. Swathi Reis Protein [Mass/Vol] 6.3 g/dL Critically low 6.4-8.2 [facility] Comment on above: Performed By: #### B CASTING MACHINE SET UP OPERATOR, CMP ####[facility] Dalhscxufz[address] [place], [place] [address]Dr. Swathi Reis Sodium [Moles/Vol] 140 mmol/L Normal 136-145 [facility] Comment on above: Performed By: #### B CASTING MACHINE SET UP OPERATOR, CMP ####[facility] Aqjjcjzzck[address] [place], [place] [address]Dr. Swathi Reis Urea nitrogen [Mass/Vol] 16.0 mg/dL Normal 7.0-18.0 [facility] Comment on above: Performed By: #### B CASTING MACHINE SET UP OPERATOR, CMP ####[facility] Xmxnodymnv[address] [place], [place] [address]Dr. Swathi Reis Urea nitrogen/Creatinine [Mass ratio] 10.9 mg/mg Normal [facility] Comment on above: Performed By: #### B CASTING MACHINE SET UP OPERATOR, CMP ####[facility] Kcfgicszen[address] [place], [place] [address]Dr. Swathi Reis XR CHEST 2 Von 07-06-2022 XR CHEST 2 V Normal [facility] BLOOD GASES BTYon 07-05-2022 02 MODE NASAL CANNULA Normal [facility] Comment on above: Performed By: #### A BG ####[facility] Nodisxcixl86[address] [place] [address]Dr. Swathi Reis ALLENS TEST Positive Normal [facility] Comment on above: Performed By: #### A BG ####[facility] Fplzqdsape9690 [place] [address]Dr. Swathi Reis Base excess Calc (Bld) [Moles/Vol] 3.1 mmol/L Critically high -2.0-2.0 The [facility] Comment on above: Performed By: #### A BG ####[facility] Efhdfednrz[address] [place], [place] [address]Dr. Swathi Reis BIPAP PRESSURE Normal [facility] Comment on above: Performed By: #### A BG ####[facility] Jdkjokhzqo97[address] [place], [place] [address]Dr. Swathi Reis CPAP Normal [facility] Comment on above: Performed By: #### A BG ####[facility] Cuslzntwxv[address] [place], [place] [address]Dr. Swathi Reis FIO2 Normal [facility] Comment on above: Performed By: #### A BG ####[facility] Subjwsdlge[address] [place], [place] [address]Dr. Swathi Reis HCO3 (Bld) [Moles/Vol] 27.0 mmol/L Critically high 22.0-26.0 [facility] Comment on above: Performed By: #### A BG ####[facility] Fkmckzslep[address] [place], [place] [address]Dr. Swathi Reis LPM 5 Normal [facility] Comment on above: Performed By: #### A BG ####[facility] Tbthxtlpno[address] [place], [place] [address]Dr. Swathi Reis MINUTE VOLUME Normal [facility] Comment on above: Performed By: #### A BG ####[facility] Mtgrakoodr[address] [place], [place] [address]Dr. Swathi Reis Oxygen (Bld) [Partial pressure] 71.4 mm[Hg] Critically low 80.0-100.0 The [facility] Comment on above: Performed By: #### A BG ####[facility] Dsgoownmrw[address]154 [place] [address]Dr. Swathi Reis Oxygen saturation in Blood 95.5 % Normal 95.0-100.0 [facility] Comment on above: Performed By: #### A BG ####[facility] Cwcybwgjbq0686 [place] [address]Dr. Swathi Reis PCO2 40.2 mmHg Normal 35.0-45.0 [facility] Comment on above: Performed By: #### A BG ####[facility] [address]bxypjyinl[address] [place] [id number]. Swathi Reis PEEP [facility] Comment on above: Performed By: #### A BG ####[facility] Duouowibkn[address] [place], [place] [address]Dr. Swathi Resi pH (Bld) 7.440 [pH] Normal 7.350-7.450 [facility] Comment on above: Performed By: #### A BG ####[facility] Gqubdstfln[address] [place], [place] [address]Dr. Swathi Reis PIP [facility] Comment on above: Performed By: #### A BG ####[facility] Ywbhfrggpj[address] [place], [place] [address]Dr. Swathi Reis PS [facility] Comment on above: Performed By: #### A BG ####[facility] Romgfmlwwg[address] [place], [place] [address]Dr. Swathi Reis PUNCTURE SITE RR [facility] Comment on above: Performed By: #### A BG ####[facility] Acmelnjxzk[address] [place], [place] [address]Dr. Swathi Reis RATE [facility] Comment on above: Performed By: #### A BG ####[facility] Rzfrtsuqhr[address] [place], [place] [address]Dr. Swathi Reis VENT [place]DE [facility] Comment on above: Performed By: #### A BG ####[facility] Kafnsxrgzt[address] [place], [place] [address]Dr. Swathi Reis [place] [facility] Comment on above: Performed By: #### A BG ####[facility] Lxopydufki[address] [place] [id number]. Swathi Reis BNPon 07-05-2022 Natriuretic peptide B (Bld) [Mass/Vol] 2257.0 pg/mL Critically high <=1,800.0 [facility] Comment on above: Performed By: #### H STROPN, CMP, BNP ####[facility] Xmtqpmdvnw[address] [place] [address]Dr. Swathi Reis CARDIAC TRINA 3-6on 2 CK [Catalytic activity/Vol] 54 U/L Normal 26-192 The [facility] Comment on above: Performed By: #### C MREP ####[facility] Epnyroccpf[address] [place], [place] [address]Dr. Swathi Reis CK.MB [Mass/Vol] ng/mL Normal <=3.60 The [facility] Comment on above: Performed By: #### C MREP ####[facility] S[address]jgmh[address] [place], [place] [address]Dr. Swathi Reis HSTROP 18.6 pg/mL Normal 4.0-51.3 The [facility] Comment on above: Result Comment: CUT- OFF POINTS HAVE BEEN ESTABLISHED BASED ON THE FOURTH UNIVERSAL DEFINITIONS OF MYOCARDIALINFARCTION. THE UPPER REFERENCE LIMIT (URL) OF TROPONIN, DEFINED THE 99TH PERCENTILE OFcTnI DISTRIBUTION IN A REFERENCE POPULATION, HAS BEEN CONFIRMED THE DECISION THRESHOLDFOR [place] DIAGNOSIS. Performed By: #### C MREP ####[facility] Lhchrufiyc[address] [place], [place] [address]Dr. Swathi Reis CK [Catalytic activity/Vol] 38 U/L Normal 26-192 The [facility] Comment on above: Performed By: #### C MREP ####[facility] [address]todukmxwf[address] [place] [address]Dr. Swathi Reis CK.MB [Mass/Vol] 0.51 ng/mL Normal <=3.60 The [facility] Comment on above: Performed By: #### C MREP ####[facility] Fqummamhvc[address] [place] [address]Dr. Swathi Reis HSTROP 16.6 pg/mL Normal 4.0-51.3 The [facility] Comment on above: Result Comment: CUT- OFF POINTS HAVE BEEN ESTABLISHED BASED ON THE FOURTH UNIVERSAL DEFINITIONS OF MYOCARDIALINFARCTION. THE UPPER REFERENCE LIMIT (URL) OF TROPONIN, DEFINED THE 99TH PERCENTILE OFcTnI DISTRIBUTION IN A REFERENCE POPULATION, HAS BEEN CONFIRMED THE DECISION THRESHOLDFOR [place] DIAGNOSIS. Performed By: #### C MREP ####[facility] [address]zecbsnqd47[address] [place] [address]Dr. Swathi Reis CBC W MANUAL DIFFon 07-05-20 22 ATYPICAL LYMPH # Normal [facility] Comment on above: Performed By: #### C JAUNMAN ####[facility] Wwywkdchyn[address] [place] [address]Dr. Swathi Reis ATYPICAL LYMPH % Normal The [facility] Comment on above: Performed By: #### C BCMAN ####[facility] Wfpgmmpmzx[address] [place], [place] [address]Dr. Swathi Reis BAND # 0.4 103/ul Critically high 0.0-0.3 [facility] Comment on above: Performed By: #### C BCMAN ####[facility] Utlqtyczjl87[address] [place] [address]Dr. Swathi Reis BAND % 2 % Normal 0-5 The [facility] Comment on above: Performed By: #### C BCMAN ####[facility] Tuwpztnvfm[address] [place], [place] [address]Dr. Swathi Reis BASOM # 0.00 103/ul Normal 0.00-0.10 The [facility] Comment on above: Performed By: #### C BCMAN ####[facility] Dxzduzuvmj8783 [place] [address]Dr. Swathi Reis BASOM % 0.0 % Critically low 0.2-2.0 The [facility] Comment on above: Performed By: #### C BCMAN ####[facility] Eikakkoibg5[address] [place] [address]Dr. Swathi Reis BLAST # Normal The [facility] Comment on above: Performed By: #### C BCMAN ####[facility] Ghccsohrjm0597 [place] [address]Dr. Swathi Reis BLAST % Normal The [facility] Comment on above: Performed By: #### C NGA ####[facility] Wloxwdfvqu6361 [place] [address]Dr. Swathi Reis CORRECTED WBC Normal 4.0-11.[address] [facility] Comment on above: Performed By: #### C NGA ####[facility] Hwtgriqnxr6417 [place] [address]Dr. Swathi Reis EOS # 0.00 103/ul Normal 0.00-0.70 The [facility] Comment on above: Performed By: #### C NGA ####[facility] Zrtucnphqr1875 [place] [address]Dr. Swathi Reis EOS% 0.0 % Critically low 0.9-7.0 The [facility] Comment on above: Performed By: #### C NGA ####[facility] Cwtiwgtxuh5305 [place] [address]Dr. Swathi Reis HCT 32.7 % Critically low 36.0-48.0 The [facility] Comment on above: Performed By: #### C NGA ####[facility] Xjotgcypfx7546 [place] [address]Dr. Swathi Reis HGB 10.6 g/dl Critically low 12.0-16.0 The [facility] Comment on above: Performed By: #### C NGA ####[facility] Rurqvdpvsx9353 [place] [address]Dr. Swathi Reis LYMPHM # 0.84 103/ul Critically low 1.20-3.80 The [facility] Comment on above: Performed By: #### C NGA ####[facility] Kslugxresl0184 [place] [address]Dr. Swathi Reis LYMPHM% 4.0 % Critically low 20.5-60.0 The [facility] Comment on above: Performed By: #### C NGA ####[facility] Qhsltgewzp2714 [place] [address]Dr. Swathi Reis MCH 30.1 pg Normal 26.7-34.0 The [facility] Comment on above: Performed By: #### C NGA ####[facility] Cihsclrppt6222 [place] [address]Dr. Swathi Reis MCHC 32.4 g/dl Normal 29.9-35.2 The [facility] Comment on above: Performed By: #### C NGA ####[facility] Evuaapxcan6932 [place] [address]Dr. Swathi Reis MCV 92.9 fL Normal 81.0-99.0 [facility] Comment on above: Performed By: #### C NGA ####[facility] Hjxhdsiqwl2261 [place] [address]Dr. Swathi Reis METAMYELOCYTE # Normal The [facility] Comment on above: Performed By: #### C NGA ####[facility] Xddhzsdukr6888 [place] [address]Dr. Swathi Reis METAMYELOCYTE % Normal The [facility] Comment on above: Performed By: #### C NGA ####[facility] Jiyl[address]qas[address] [place], [place] [address]Dr. Swathi Reis MONOM# 1.88 103/ul Critically high 0.30-0.80 [facility] Comment on above: Performed By: #### C NGA ####[facility] Zbajemwmaf0458 [place] [address]Dr. Swathi Reis MONOM% 9.0 % Normal 1.7-12.0 The [facility] Comment on above: Performed By: #### C NGA ####[facility] Xivybzfwef0240 [place] [address]Dr. Swathi Reis MPV 10.6 fL Normal 9.5-13.5 The [facility] Comment on above: Performed By: #### C NGA ####[facility] Vbagdnfrmj5214 [place] [address]Dr. Swathi Reis MYELOCYTE # Normal The [facility] Comment on above: Performed By: #### C NGA ####[facility] Bravxrkxnv2519 [place] [address]Dr. Yilan Reis MYELOCYTE % Normal The [facility] Comment on above: Performed By: #### C NGA ####[facility] U[address]iebb[address] [place], [place] [address]Mi. Swathi Reis NRBC Normal The [facility] Comment on above: Performed By: #### C NGA ####[facility] Fyxjeszmaw5[address] [place], [place] [address]Uj. Swathi Reis PLT 335 103/ul Normal 150-450 The [facility] Comment on above: Performed By: #### C NGA ####[facility] Hbpvzfrzyj47[address] [place], [place] [address]Kl. Swathi Reis RBC 3.52 106/ul Critically low 4.20-5.40 The [facility] Comment on above: Performed By: #### C NGA ####[facility] Xwmdaqdizi9[address] [place], [place] [address]Wp. Swathi Reis RDW 13.5 % Normal 11.0-15.0 [facility] Comment on above: Performed By: #### C NGA ####[facility] Yhmiudxadg8245 [place], [place] [address]Ri. Swathi Reis SEG # 17.76 103/ul Critically high 1.40-6.50 [facility] Comment on above: Performed By: #### C NGA ####[facility] Zkqxhsmtef2925 [place], [place] [address]Yv. Swathi Reis SEG % 85.0 % Critically high 43.0-75.0 The [facility] Comment on above: Performed By: #### C NGA ####[facility] Eymuvozqqb3694 [place], [place] [address]Qg. Swathi Reis WBC 20.9 103/ul Critically high 4.0-11.0 The [facility] Comment on above: Performed By: #### C NGA ####[facility] Kljxxbcuve2120 [place], [place] [address]Ph. Swathi Reis CTA CHEST WO W CONon 022 CTA CHEST WO W CON Normal The [facility] CULTURE BLOODon 07-05-2022 Microscopic examination of blood, culture Culture Observations: NO GROWTH AT 5 DAYS. Normal [facility] Comment on above: Performed By: #### B LDCX2 ####[facility] Ebrbtrzcqe33[address] [place] [address]Dr. Swathi Reis Microscopic examination of blood, culture Culture Observations: NO GROWTH AT 5 DAYS. Normal [facility] Comment on above: Performed By: #### B LDCX1 ####[facility] Quyufvfync3[address] [place] [address]Dr. Swathi Reis Covid-19 PCR (CVDTB)on 06-23 SARS-CoV-2 (COVID-19) RNA ÓSCAR+probe Ql (Unsp spec) Not detected Normal NOT DETECTED The [facility] Comment on above: Result [...] for this test is supported by the [place] of Health and Human Service's declaration that [...] be used). Performed By: #### C VDTBH ####[facility] Oefkedlxdr7570 [place] [id number]. Swathi Reis D-DIMERon 07-05-2022 D-DIMER 2.17 mg/L FEU Critically high <=0.59 [facility] [place] Comment on above: Performed By: #### P T, DDIM, PTT ####[facility] Oureuqxhai7[address] [place] [id number]. Swathi Reis D-DIMER COMMENTS SEE BELOW Normal The [facility] Comment on above: Result Comment: Incr [...] Performed By: #### P T, DDIM, PTT ####[facility] Nnrihstxfr7238 [place] [address]Dr. Swathi Reis LACTATE/LACTIC ACIDon 2021 Lactate [Moles/Vol] 2.5 mmol/L Critically high 0.4-1.9 [facility] Comment on above: Performed By: #### L ACT ####[facility] Nwthfltcwd[address] [place], [place] [address]Dr. Swathi Reis Lactate [Moles/Vol] 3.2 mmol/L Critically high 0.4-1.9 [facility] Comment on above: Performed By: #### L ACT ####[facility] [address]qbrkzqhys[address] [place], [place] [address]Dr. Swathi Reis POINT OF CARE GLUCOSEon 06-23 Glucose [Mass/Vol] 179 mg/dL Critically high 74-106 T [facility] Comment on above: Performed By: #### P OCGLUC ####[facility] Todkldnudy[address] [place], [place] [address]Dr. Swathi Reis PROF 14(COMP METB)on 022 Albumin [Mass/Vol] 3.2 g/dL Critically low 3.4-5.0 Th [facility] Comment on above: Performed By: #### H STROPN, CMP, BNP ####[facility] Uqvyyuauyj[address] [place], [place] [address]Dr. Swathi Reis Albumin/Globulin [Mass ratio] 0.8 {ratio} Normal [facility] Comment on above: Performed By: #### H STROPN, CMP, BNP ####[facility] Zcnirfappo[address] [place], [place] [address]Dr. Swathi Reis ALP [Catalytic activity/Vol] 98 U/L Normal 46-116 [facility] Comment on above: Performed By: #### H STROPN, CMP, BNP ####[facility] Snbhzsutxj5582 [place] [address]Dr. Swathi Reis ALT [Catalytic activity/Vol] 18 U/L Normal 14-59 [facility] Comment on above: Performed By: #### H STROPN, CMP, BNP ####[facility] Rogxmevsjd8586 [place] [address]Dr. Swathi Reis Anion gap [Moles/Vol] 11.5 mmol/L Normal [facility] Comment on above: Performed By: #### H STROPN, CMP, BNP ####[facility] Zqqhyvlxol0811 [place] [address]Dr. Swathi Reis AST [Catalytic activity/Vol] 16 U/L Normal 15-37 [facility] Comment on above: Performed By: #### H STROPN, CMP, BNP ####[facility] Ofilwnjpqq[address] [place], [place] [address]Dr. Swathi Reis Bilirubin [Mass/Vol] 0.7 mg/dL Normal 0.2-1.0 [facility] Comment on above: Performed By: #### H STROPN, CMP, BNP ####[facility] Qlbtcfblnb8102 [place] [address]Dr. Swathi Reis Calcium [Mass/Vol] 9.3 mg/dL Normal 8.5-10.1 [facility] [place] Comment on above: Performed By: #### H STROPN, CMP, BNP ####[facility] Eklnoobrgp[address] [place] [address]Dr. Swathi Reis Chloride [Moles/Vol] 100 mmol/L Normal 98-107 The [facility] Comment on above: Performed By: #### H STROPN, CMP, BNP ####[facility] Vpsyevroci[address]100 [place] [address]Dr. Swathi Reis CO2 [Moles/Vol] 29.5 mmol/L Normal 21.0-32.0 The [facility] Comment on above: Performed By: #### H STROPN, CMP, BNP ####[facility] Jchmxjjxol7232 [place] [address]Dr. Swathi Chato Creatinine [Mass/Vol] 1.66 mg/dL Critically high 0.55-1.02 [facility] Comment on above: Performed By: #### H STROPN, CMP, BNP ####[facility] Dxpayohyfc9143 [place] [address]Dr. Swathi Reis EGFR-AF ARGENTINE 36 mL/min/1.73m2 Critically low >=60 [facility] Comment on above: Performed By: #### H STROPN, CMP, BNP ####[facility] Zikcwzavty7206 [place] [address]Dr. Swathi Reis EGFR-NON AF ARGENTINE 30 mL/min/1.73m2 Critically low >=60 [facility] Comment on above: Performed By: #### H STROPN, CMP, BNP ####[facility] [address]qmnntwzn[address] [place], [place] [address]Dr. Swathi Reis Globulin (S) [Mass/Vol] 4.0 g/dL Normal [facility] Comment on above: Performed By: #### H STROPN, CMP, BNP ####[facility] Xkynrghxjl[address] [place], [place] [address]Dr. Swathi Reis Glucose [Mass/Vol] 247 mg/dL Critically high 74-106 T [facility] Comment on above: Performed By: #### H STROPN, CMP, BNP ####[facility] Mpksmysday0323 [place] [address]Dr. Swathi Reis Potassium [Moles/Vol] 4.0 mmol/L Normal 3.5-5.1 [facility] Comment on above: Performed By: #### H STROPN, CMP, BNP ####[facility] [address]uc[address]glg[address] [place], [place] [address]Dr. Swathi Reis Protein [Mass/Vol] 7.2 g/dL Normal 6.4-8.2 The [facility] Comment on above: Performed By: #### H STROPN, CMP, BNP ####[facility] Ebribwgjvz[address] [place], [place] [address]Dr. Swathi Reis Sodium [Moles/Vol] 137 mmol/L Normal 136-145 The [facility] Comment on above: Performed By: #### H RAFFI CMP, BNP ####[facility] Xqrgerhtth6275 [place] [address]Dr. Swathi Reis Urea nitrogen [Mass/Vol] 22.0 mg/dL Critically high 7.0-18.0 [facility] Comment on above: Performed By: #### H RAFFI CMP, BNP ####[facility] Xwlneumbpe13[address] [place] [address]Dr. Swathi Reis Urea nitrogen/Creatinine [Mass ratio] 13.3 mg/mg Normal The [facility] Comment on above: Performed By: #### H DORYS NUGENT, BNP ####[facility] Ucudphyhmf66[address] [place] [address]Dr. Swathi Reis PROTIMEon 07-05-2022 INR Coag (PPP) [Relative time] 1.10 {INR} Normal [facility] Comment on above: Performed By: #### P T, DDIM, PTT ####[facility] Kcswebzwsc[address]24 [place] [address]Dr. Swathi Reis INR GUIDELINES SEE BELOW Normal The [facility] Comment on above: Result Comment: HARRIETT RED INR: 2.0 - 3.0 CONDITIONS NOT LISTED BELOW 2.5 - 3.5 FOR PROSTHETIC HEART VALVE REPLACEMENT 2.5 - 3.5 RECURRENT THROMBOSIS Performed By: #### P T, DDIM, PTT ####[facility] V[address]xqcjxct[address] [place], [place] [address]Dr. Swathi Reis PT Coag (PPP) [Time] 11.8 s Critically high 9.0-11.6 The [facility] Comment on above: Performed By: #### P T, DDIM, PTT ####[facility] Cmsahyhser3616 [place] [address]Dr. Swathi Reis PTTon 07-05-2022 aPTT Coag (Bld) [Time] 27.2 s Normal 22.3-36.2 The [facility] Comment on above: Performed By: #### P T, DDIM, PTT ####[facility] [address] [place], [place] [address]Ee. Swathi Reis TROPONIN, HIGH SENSITIVITYon 07-05-2022 HSTROP 16.2 pg/mL Normal 4.0-51.3 The [facility] Comment on above: Result Comment: CUT- OFF POINTS HAVE BEEN ESTABLISHED BASED ON THE FOURTH UNIVERSAL DEFINITIONS OF MYOCARDIALINFARCTION. THE UPPER REFERENCE LIMIT (URL) OF TROPONIN, DEFINED THE 99TH PERCENTILE OFcTnI DISTRIBUTION IN A REFERENCE POPULATION, HAS BEEN CONFIRMED THE DECISION THRESHOLDFOR [place] DIAGNOSIS. Performed By: #### H STROPN, CMP, BNP ####[facility] Sovfxsgcdf2876 [place], [place] [address]Lu. Swathi Reis XR CHEST 1 Von 07-05-2022 XR CHEST 1 V Normal [facility] MRI WRIST LT WO CONon 2021 MRI WRIST LT WO CON Normal [facility] XR ANKLE LT MIN 3 Von 2021 XR ANKLE LT MIN 3 V Normal [facility] XR WRIST LT MIN 3 Von 2021 XR WRIST LT MIN 3 V Normal [facility] Progress Noteson 05-19-2022 Training Facilitator Authentication Interface Message Text EMERGENCY TRIAGE, TREAT AND TRANSPORT (ET3) DOCUMENTATION OF TELEHEALTH VISIT Date / Time: 05/19/2022 / 1130 Name: Andrew Barros : 1945 SSN: (Not on file) EMS Agency: [facility] [x] Verbal consent obtained [] [...] Completed by: Kristian Mcwilliams MD Normal [facility] CBC AUTO DIFFon 05-07-2022 BASO # 0.1 103/ul Normal 0.0-0.1 [facility] Comment on above: Performed By: #### C BC ####[facility] Fzthqdkwqj37[address] [place] [address]Dr. Swathi Reis Basophils/100 WBC (Bld) 0.5 % Normal 0.2-2.0 [facility] Comment on above: Performed By: #### C BC ####[facility] Vkgvroymdu1924 [place] [address]Dr. Swathi Reis EO # 0.1 103/ul Normal 0.0-0.7 [facility] Comment on above: Performed By: #### C BC ####[facility] Klbeccfdbt3412 [place] [address]DrOtto Reis Eosinophils/100 WBC (Bld) 1.1 % Normal 0.9-7.0 [facility] Comment on above: Performed By: #### C BC ####[facility] Izwumsudpf1662 [place] [address]DrOtto Reis Erythrocyte distribution width (RBC) [Ratio] 13.2 % Normal 11.0-15.0 [facility] Comment on above: Performed By: #### C BC ####[facility] Upzuyhvfir8330 [place] [address]Dr. Swathi Reis Hematocrit (Bld) [Volume fraction] 40.9 % Normal 36.0-48.0 [facility] Comment on above: Performed By: #### C BC ####[facility] Bghpvgtkwi8859 [place] [address]Dr. Swathi Reis Hemoglobin (Bld) [Mass/Vol] 12.8 g/dL Normal 12.0-16.0 [facility] Comment on above: Performed By: #### C BC ####[facility] Mbgsquoxjy7566 [place] [address]Dr. Swathi Reis IG # 0.04 10e3/ul Critically high 0.00-0.03 [facility] Comment on above: Performed By: #### C BC ####[facility] Jfpounhhwz9417 [place] [address]Dr. Swathi Reis IG % 0.4 % Normal 0.0-0.5 [facility] Comment on above: Performed By: #### C BC ####[facility] Bhgusbmzpw[address] [place], [place] [address]Dr. Swathi Chato LYMPH # 1.4 103/ul Normal 1.2-3.8 [facility] Comment on above: Performed By: #### C BC ####[facility] Zwaluirfxr[address] [place], [place] [address]Dr. Inessatracy Reis Lymphocytes/100 WBC (Bld) 13.2 % Critically low 20.5-60.0 [facility] Comment on above: Performed By: #### C BC ####[facility] Pbumyhlxdj[address] [place], [place] [address]DrOtto Reis MANUAL DIFF REQ NO Normal [facility] Comment on above: Performed By: #### C BC ####[facility] Xfrtqmfnbn6731 [place] [address]DrOtto Reis MCH (RBC) [Entitic mass] 29.5 pg Normal 26.7-34.0 [facility] Comment on above: Performed By: #### C BC ####[facility] Piqykvidci7968 [place] [address]Dr. Swathi Reis MCHC (RBC) [Mass/Vol] 31.3 g/dL Normal 29.9-35.2 [facility] Comment on above: Performed By: #### C BC ####[facility] Garbtrrjfr8953 [place] [address]Dr. Swathi Chato MCV (RBC) [Entitic vol] 94.2 fL Normal 81.0-99.0 [facility] Comment on above: Performed By: #### C BC ####[facility] Ceylxqbvdf6191 [place] [address]Dr. Swathi Reis MONO # 0.9 103/ul Critically high 0.3-0.8 [facility] Comment on above: Performed By: #### C BC ####[facility] Hjncscgxiq[address] [place], [place] [address]Dr. Swathi Reis Monocytes/100 WBC (Bld) 8.9 % Normal 1.7-12.0 [facility] Comment on above: Performed By: #### C BC ####[facility] Tujktqvlfm[address] [place], [place] [address]Dr. Swathi Chato NEUT # 7.8 103/ul Critically high 1.4-6.5 The [facility] Comment on above: Performed By: #### C BC ####[facility] Jczwjsbpng[address] [place], [place] [address]Dr. Swathi Reis Neutrophils/100 WBC (Bld) 75.9 % Critically high 43.0-75.0 [facility] Comment on above: Performed By: #### C BC ####[facility] Pzlhhdqryx[address] [place], [place] [address]Dr. Swathi Reis Platelet mean volume (Bld) [Entitic vol] 10.7 fL Normal 9.5-13.5 [facility] Comment on above: Performed By: #### C BC ####[facility] Kvowlrfudu[address] [place], [place] [address]Dr. Swathi Reis PLT 257 103/ul Normal 150-450 [facility] Comment on above: Performed By: #### C BC ####[facility] Obhngoqpbp3[address] [place], [place] [address]Hj. Swathi Reis RBC 4.34 106/ul Normal 4.20-5.40 [facility] Comment on above: Performed By: #### C BC ####[facility] Ygxjocapwf9706 [place], [place] [address]Ki. Swathi Reis WBC 10.2 103/ul Normal 4.0-11.0 [facility] Comment on above: Performed By: #### C BC ####[facility] Aywxryspmv7989 [place], [place] [address]Gr. Swathi Reis Covid-19 PCR (CVDTB)on 04-23 SARS-CoV-2 (COVID-19) RNA ÓSCAR+probe Ql (Unsp spec) Not detected Normal NOT DETECTED [facility] Comment on above: Result Comment: This test is not yet approved or cleared by the [place] FDA. When there are no FDA-approved or cleared tests available, and other criteria are met, FDA can make tests available under an emergency access mechanism called an Emergency Use Authorization (EUA). The EUA for this test is supported by the [place] [place] of Health and Human Service's (HHS's) declaration [...] with SARS-CoV-2. Performed By: #### C VDTBH ####[facility] Ishiizktdo[address] [place], [place] [address]Mc. Swathi Reis PROF CHEM 8 (BAS METB)on Anion gap [Moles/Vol] 12.0 mmol/L Normal [facility] Comment on above: Performed By: #### B MP ####[facility] Cjzgkiviqj[address] [place] [id number]. Swathi Reis Calcium [Mass/Vol] 9.7 mg/dL Normal 8.5-10.1 [facility] [place] Comment on above: Performed By: #### B MP ####[facility] Ryoqvbvimn80[address] [place] [id number]. Swathi Reis Chloride [Moles/Vol] 102 mmol/L Normal 98-107 [facility] Comment on above: Performed By: #### B MP ####[facility] Djguodjidr[address] [place] [address]Dr. Swathi Reis CO2 [Moles/Vol] 31.8 mmol/L Normal 21.0-32.0 [facility] Comment on above: Performed By: #### B MP ####[facility] Oihkdxuity[address] [place], [place] [address]Dr. Swathi Reis Creatinine [Mass/Vol] 1.22 mg/dL Critically high 0.55-1.02 [facility] Comment on above: Performed By: #### B MP ####[facility] Zqpghbttsj[address] [place], [place] [address]Dr. Swathi Chato EGFR-AF ARGENTINE 52 mL/min/1.73m2 Critically low >=60 [facility] Comment on above: Performed By: #### B MP ####[facility] Gndfxcahkx[address] [place], [place] [address]Dr. Swathi Chato EGFR-NON AF ARGENTINE 43 mL/min/1.73m2 Critically low >=60 [facility] Comment on above: Performed By: #### B MP ####[facility] Fxueimtldp39[address] [place] [address]Dr. Swathi Reis Glucose [Mass/Vol] 249 mg/dL Critically high 74-106 [facility] Comment on above: Performed By: #### B MP ####[facility] Jmdwjjtfjy[address] [place], [place] [address]Dr. Swathi Reis Potassium [Moles/Vol] 3.8 mmol/L Normal 3.5-5.1 [facility] Comment on above: Performed By: #### B MP ####[facility] Vrpgoiueup[address] [place] [address]Dr. Swathi Reis Sodium [Moles/Vol] 142 mmol/L Normal 136-145 [facility] [place] Comment on above: Performed By: #### B MP ####[facility] Xjyxwlkjyx[address] [place] [address]Dr. Swathi Reis Urea nitrogen [Mass/Vol] 21.0 mg/dL Critically high 7.0-18.0 [facility] Comment on above: Performed By: #### B MP ####[facility] Wfwcaeipdu[address] [place], [place] [address]Dr. Swathi Reis Urea nitrogen/Creatinine [Mass ratio] 17.2 mg/mg Normal [facility] Comment on above: Performed By: #### B MP ####[facility] Pwhdkrfhyt[address] [place], [place] [address]Dr. Swathi Reis CBC AUTO DIFFon 01-12-2022 BASO # 0.1 103/ul Normal 0.0-0.1 [facility] Comment on above: Performed By: #### C BC ####[facility] Pwjqjrywpl[address] [place], [place] [address]Dr. Swathi Reis Basophils/100 WBC (Bld) 0.7 % Normal 0.2-2.0 [facility] Comment on above: Performed By: #### C BC ####[facility] Kqhspnhtnq[address] [place], [place] [address]Dr. Swathi Reis EO # 0.3 103/ul Normal 0.0-0.7 [facility] Comment on above: Performed By: #### C BC ####[facility] Xnmaifownu[address] [place], [place] [address]Dr. Swathi Chato Eosinophils/100 WBC (Bld) 2.9 % Normal 0.9-7.0 [facility] Comment on above: Performed By: #### C BC ####[facility] Imnzhyuqij34[address] [place], [place] [address]Dr. Swathi Reis Erythrocyte distribution width (RBC) [Ratio] 13.2 % Normal 11.0-15.0 [facility] Comment on above: Performed By: #### C BC ####[facility] Drnpspzsvz01[address] [place] [address]Dr. Inessatracy Chato Hematocrit (Bld) [Volume fraction] 35.9 % Critically low 36.0-48.0 [facility] Comment on above: Performed By: #### C BC ####[facility] [address]rscakun[address] [place] [address]Dr. Swathi Reis Hemoglobin (Bld) [Mass/Vol] 11.6 g/dL Critically low 12.0-16.0 [facility] Comment on above: Performed By: #### C BC ####[facility] Rlfsrobccn[address] [place], [place] [address]Dr. Swathi Reis IG # 0.03 10e3/ul Normal 0.00-0.03 [facility] Comment on above: Performed By: #### C BC ####[facility] Gwpwssyoky[address] [place], [place] [address]Dr. Swathi Reis IG % 0.4 % Normal 0.0-0.5 [facility] Comment on above: Performed By: #### C BC ####[facility] Uguqbvekmo[address] [place], [place] [address]DrOtto Reis LYMPH # 1.5 103/ul Normal 1.2-3.8 [facility] Comment on above: Performed By: #### C BC ####[facility] Ztswuwkoiv97[address] [place], [place] [address]Dr. Swathi Reis Lymphocytes/100 WBC (Bld) 17.6 % Critically low 20.5-60.0 [facility] Comment on above: Performed By: #### C BC ####[facility] Flsqmosjis4[address] [place], [place] [address]DrOtto Reis MANUAL DIFF REQ NO Normal [facility] Comment on above: Performed By: #### C BC ####[facility] Ammkiwxqov[address] [place] [address]Dr. Swathi Reis MCH (RBC) [Entitic mass] 30.0 pg Normal 26.7-34.0 [facility] Comment on above: Performed By: #### C BC ####[facility] Snaeqvhbyn60[address] [place] [id number]. Swathi Chato MCHC (RBC) [Mass/Vol] 32.3 g/dL Normal 29.9-35.2 [facility] Comment on above: Performed By: #### C BC ####[facility] Iaetyrqbrx3240 [place] [id number]. Swathi Reis MCV (RBC) [Entitic vol] 92.8 fL Normal 81.0-99.0 [facility] Comment on above: Performed By: #### C BC ####[facility] Wtkgfrvvlz11[address] [place] [address]DrOtto Reis MONO # 1.1 103/ul Critically high 0.3-0.8 [facility] Comment on above: Performed By: #### C BC ####[facility] Ykynwuxnwn07[address] [place] [address]Dr. Swathi Reis Monocytes/100 WBC (Bld) 12.3 % Critically high 1.7-12.0 [facility] Comment on above: Performed By: #### C BC ####[facility] Ljlssbuwxo[address] [place], [place] [address]Dr. Swathi Reis NEUT # 5.7 103/ul Normal 1.4-6.5 [facility] Comment on above: Performed By: #### C BC ####[facility] Owccglejco3[address] [place] [id number]. Swathi Reis Neutrophils/100 WBC (Bld) 66.1 % Normal 43.0-75.0 [facility] Comment on above: Performed By: #### C BC ####[facility] Ishmdaqzxm[address] [place], [place] [address]Dr. Swathi Reis Platelet mean volume (Bld) [Entitic vol] 10.9 fL Normal 9.5-13.5 [facility] Comment on above: Performed By: #### C BC ####[facility] Hadcaenxew[address] [place] [id number]. Swathi Reis PLT 246 103/ul Normal 150-450 [facility] Comment on above: Performed By: #### C BC ####[facility] Ivpudovttk9992 [place] [address]Dr. Inessatracy Reis RBC 3.87 106/ul Critically low 4.20-5.40 [facility] Comment on above: Performed By: #### C BC ####[facility] Avrxojkccd49[address] [place] [id number]. Swathi Reis WBC 8.6 103/ul Normal 4.0-11.0 [facility] Comment on above: Performed By: #### C BC ####[facility] Txqjmhwcuy44[address] [place] [id number]. Swathi Reis CRPon 01-12-2022 CRP [Mass/Vol] mg/L Normal <=1.0 [facility] Comment on above: Performed By: #### C MP, CRP ####[facility] Eifpiezxsm5[address] [place] [address]Dr. Swathi Reis POINT OF CARE GLUCOSEon 12-23 Glucose [Mass/Vol] 95 mg/dL Normal 74-106 [facility] [place] Comment on above: Performed By: #### P OCGLUC ####[facility] Dbjldfjyfm[address] [place], [place] [address]Dr. Swathi Reis PROF 14(COMP METB)on 022 Albumin [Mass/Vol] 2.9 g/dL Critically low 3.4-5.0 [facility] Comment on above: Performed By: #### C MP, CRP ####[facility] Ogucdqvuyr[address] [place] [address]Dr. Swathi Reis Albumin/Globulin [Mass ratio] 0.8 {ratio} Normal [facility] Comment on above: Performed By: #### C MP, CRP ####[facility] Syjiwvzhic[address] [place] [address]Dr. Swathi Reis ALP [Catalytic activity/Vol] 91 U/L Normal 46-116 [facility] Comment on above: Performed By: #### C MP, CRP ####[facility] Jydxbheaya29[address] [place] [address]Dr. Swathi Reis ALT [Catalytic activity/Vol] 18 U/L Normal 14-59 [facility] Comment on above: Performed By: #### C MP, CRP ####[facility] Ucomndmlxj[address] [place], [place] [address]Dr. Swathi Reis Anion gap [Moles/Vol] 9.1 mmol/L Normal [facility] Comment on above: Performed By: #### C MP, CRP ####[facility] Sjabqvjcon[address] [place], [place] [address]Dr. Swathi Reis AST [Catalytic activity/Vol] 17 U/L Normal 15-37 [facility] Comment on above: Performed By: #### C MP, CRP ####[facility] Oymxyuqjvv[address] [place], [place] [address]Dr. Swathi Reis Bilirubin [Mass/Vol] 0.6 mg/dL Normal 0.2-1.3 [facility] Comment on above: Performed By: #### C MP, CRP ####[facility] Mxijdzjodl[address] [place], [place] [address]Dr. Swathi Reis Calcium [Mass/Vol] 8.6 mg/dL Normal 8.5-10.1 The [facility] Comment on above: Performed By: #### C MP, CRP ####[facility] Rrnnqxxzna[address] [place], [place] [address]Dr. Swathi Reis Chloride [Moles/Vol] 104 mmol/L Normal 98-107 [facility] Comment on above: Performed By: #### C MP, CRP ####[facility] Benqflncim[address] [place], [place] [address]Dr. Swathi Reis CO2 [Moles/Vol] 32.1 mmol/L Critically high 22.0-30.0 [facility] Comment on above: Performed By: #### C MP, CRP ####[facility] Yfpudnsudt[address] [place], [place] [address]Dr. Swathi Reis Creatinine [Mass/Vol] 0.96 mg/dL Normal 0.52-1.04 [facility] Comment on above: Performed By: #### C MP, CRP ####[facility] [address]oj[address] [place] [id number]. Swathi Reis EGFR-AF ARGENTINE >60 Normal >=60 [facility] Comment on above: Performed By: #### C MP, CRP ####[facility] Ounfazzezl[address] [place] [id number]. Swathi Reis EGFR-NON AF ARGENTINE 56 mL/min/1.73m2 Critically low >=60 [facility] Comment on above: Performed By: #### C MP, CRP ####[facility] Nybmcwbmuj9[address] [place] [id number]. Swathi Reis Globulin (S) [Mass/Vol] 3.5 g/dL Normal [facility] Comment on above: Performed By: #### C MP, CRP ####[facility] Ajppcidrsp7924 [place] [address]Dr. Swathi Reis Glucose [Mass/Vol] 114 mg/dL Critically high 74-106 [facility] Comment on above: Performed By: #### C MP, CRP ####[facility] Iltizayofj5643 [place] [address]Dr. Swathi Reis Potassium [Moles/Vol] 3.2 mmol/L Critically low 3.4-5.0 [facility] Comment on above: Performed By: #### C MP, CRP ####[facility] Nzalwfytqk6243 [place] [id number]. Swathi Reis Protein [Mass/Vol] 6.4 g/dL Normal 6.1-8.2 The [facility] Comment on above: Performed By: #### C MP, CRP ####[facility] Hqzsoipaxw32[address] [place] [id number]. Swathi Reis Sodium [Moles/Vol] 142 mmol/L Normal 137-145 [facility] [place] Comment on above: Performed By: #### C MP, CRP ####[facility] Vlgnzwwgak6032 [place] [address]Dr. Swathi Reis Urea nitrogen [Mass/Vol] 20.0 mg/dL Critically high 7.0-18.0 [facility] Comment on above: Performed By: #### C MP, CRP ####[facility] Ysbietcbnz[address] [place] [address]Dr. Swathi Reis Urea nitrogen/Creatinine [Mass ratio] 20.8 mg/mg Normal [facility] Comment on above: Performed By: #### C MP, CRP ####[facility] Emjhalzgot[address] [place] [address]Dr. Swathi Reis T3, TOTAL (TRIIODOTHYRONINE) on 01-12-2022 T3, TOTAL 79 ng/dL Normal 71-180 [facility] Comment on above: Performed By: #### T 3TOTAL ####[facility] Gilkreubfl[address] [place], [place] [address]Dr. Swathi Reis CBC AUTO DIFFon 01-11-2022 BASO # 0.1 103/ul Normal 0.0-0.1 [facility] Comment on above: Performed By: #### C BC ####[facility] Nzccwmhojs[address] [place], [place] [address]Dr. Swathi Reis Basophils/100 WBC (Bld) 0.5 % Normal 0.2-2.0 [facility] Comment on above: Performed By: #### C BC ####[facility] Wjwocnblat[address] [place], [place] [address]Dr. Swathi Reis EO # 0.1 103/ul Normal 0.0-0.7 [facility] Comment on above: Performed By: #### C BC ####[facility] Deowfiqmon[address] [place], [place] [address]Dr. Swathi Reis Eosinophils/100 WBC (Bld) 1.1 % Normal 0.9-7.0 [facility] Comment on above: Performed By: #### C BC ####[facility] Rejcedadwy[address] [place], [place] [address]Dr. Swathi Reis Erythrocyte distribution width (RBC) [Ratio] 13.1 % Normal 11.0-15.0 [facility] Comment on above: Performed By: #### C BC ####[facility] Iuqatogoax[address] [place], [place] [address]Dr. Swathi Reis Hematocrit (Bld) [Volume fraction] 39.1 % Normal 36.0-48.0 [facility] Comment on above: Performed By: #### C BC ####[facility] Czozejbrox6036 [place] [address]DrOtto Reis Hemoglobin (Bld) [Mass/Vol] 12.7 g/dL Normal 12.0-16.0 [facility] Comment on above: Performed By: #### C BC ####[facility] Mgjvvelvcn9700 [place] [address]DrOtto Reis IG # 0.04 10e3/ul Critically high 0.00-0.03 [facility] Comment on above: Performed By: #### C BC ####[facility] Odhwiirpea5918 [place] [address]DrOtto Reis IG % 0.4 % Normal 0.0-0.5 [facility] Comment on above: Performed By: #### C BC ####[facility] Vpqkaumnsb[address] [place], [place] [address]DrOtto Reis LYMPH # 1.4 103/ul Normal 1.2-3.8 [facility] Comment on above: Performed By: #### C BC ####[facility] Rsfarwsimr5195 [place] [address]DrOtto Reis Lymphocytes/100 WBC (Bld) 12.4 % Critically low 20.5-60.0 [facility] Comment on above: Performed By: #### C BC ####[facility] Fehpsyakzu1116 [place] [address]DrOtto Reis MANUAL DIFF REQ NO Normal [facility] Comment on above: Performed By: #### C BC ####[facility] Gchhztosix6998 [place] [id number] Reis MCH (RBC) [Entitic mass] 30.0 pg Normal 26.7-34.0 [facility] Comment on above: Performed By: #### C BC ####[facility] Sbxerblyyz9257 [place] [id number] Reis MCHC (RBC) [Mass/Vol] 32.5 g/dL Normal 29.9-35.2 [facility] Comment on above: Performed By: #### C BC ####[facility] Kopkgdufup7131 [place] [address]DrOtto Reis MCV (RBC) [Entitic vol] 92.4 fL Normal 81.0-99.0 [facility] Comment on above: Performed By: #### C BC ####[facility] Tnnfweteth6375 [place] [address]DrOtto Reis MONO # 1.1 103/ul Critically high 0.3-0.8 [facility] Comment on above: Performed By: #### C BC ####[facility] Imbuvfiwiq6242 [place] [address]DrOtto Reis Monocytes/100 WBC (Bld) 10.1 % Normal 1.7-12.0 [facility] Comment on above: Performed By: #### C BC ####[facility] Tkhphexrqr[address] [place], [place] [address]DrOtto Reis NEUT # 8.3 103/ul Critically high 1.4-6.5 [facility] Comment on above: Performed By: #### C BC ####[facility] Ojbpwzxeva[address] [place], [place] [address]DrOtto Reis Neutrophils/100 WBC (Bld) 75.5 % Critically high 43.0-75.0 [facility] Comment on above: Performed By: #### C BC ####[facility] Wrtkgbtmpg[address] [place], [place] [address]DrOtto Reis Platelet mean volume (Bld) [Entitic vol] 11.3 fL Normal 9.5-13.5 [facility] Comment on above: Performed By: #### C BC ####[facility] Rannxfcfkd[address] [place], [place] [address]DrOtto Reis PLT 292 103/ul Normal 150-450 [facility] Comment on above: Performed By: #### C BC ####[facility] B[address]qrowjqzv[address] [place], [place] [address]DrOtto Reis RBC 4.23 106/ul Normal 4.20-5.40 [facility] Comment on above: Performed By: #### C BC ####[facility] Ubuuroyjlq[address] [place], [place] [address]Kq. Swathi Reis WBC 11.0 103/ul Normal 4.0-11.0 [facility] Comment on above: Performed By: #### C BC ####[facility] Eusedrwvqk35[address] [place], [place] [address]Vj. Swathi Reis CT HEAD WO CONon 01-11-2022 CT HEAD WO CON Normal [facility] CULTURE URINEon 01-11-2022 CULTURE URINE Culture Observations : LIGHT GROWTH OF MIXED GENITAL ELEONORA. NO POTENTIAL PATHOGENS SEEN. Normal [facility] Comment on above: Performed By: #### U RCX ####[facility] Vilqdlfvmk260[address] [place], [place] [address]Lp. Swathi Reis Covid-19 PCR (CVDTB)on 12-23 SARS-CoV-2 (COVID-19) RNA ÓSCAR+probe Ql (Unsp spec) Not detected Normal NOT DETECTED [facility] Comment on above: Result [...] for this test is supported by the [employer] and Human Service's declaration that [...] be used). Performed By: #### C VDTBH ####[facility] Kmfqkirwnf6[address] [place], [place] [address]Ce. Swathi Reis EEGon 01-11-2022 EEG Normal [facility] ER URINE PROFILEon 2 Bilirubin Ql (U) Negative Normal NEGATIVE The [facility] Comment on above: Performed By: #### E RUR ####[facility] Bpibjhmqjh[address] [place], [place] [address]Dr. Swathi Reis Clarity (U) CLEAR Normal CLEAR [facility] Comment on above: Performed By: #### E RUR ####[facility] [address]vqyvjgebv[address] [place], [place] [address]Dr. Swathi Reis Color (U) LT. YELLOW Normal YELLOW [facility] Comment on above: Performed By: #### E RUR ####[facility] Gidliuotum[address] [place], [place] [address]Dr. Swathi Reis ERUAHD A micrscopic examina tion will be performed if indicated. Normal [facility] Comment on above: Performed By: #### E RUR ####[facility] Rzoskjlvni[address] [place], [place] [address]Dr. Swathi Reis Glucose Ql (U) Negative Normal NEGATIVE [facility] Comment on above: Performed By: #### E RUR ####[facility] Ultqjdyimc9[address] [place], [place] [address]Dr. Swathi Reis Hemoglobin Ql (U) Negative Normal NEGATIVE The [facility] Comment on above: Performed By: #### E RUR ####[facility] Fdhwgkixri[address] [place], [place] [address]Dr. Swathi Reis Ketones Ql (U) Negative Normal NEGATIVE [facility] Comment on above: Performed By: #### E RUR ####[facility] Wgbbtlqrzk138[address] [place], [place] [address]Dr. Swathi Reis LEUKOCYTES Negative Normal NEGATIVE [facility] Comment on above: Performed By: #### E RUR ####[facility] Niuediwtev[address] [place], [place] [address]Dr. Swathi Reis Nitrite Ql (U) Negative Normal NEGATIVE [facility] Comment on above: Performed By: #### E RUR ####[facility] Ioppefjpry[address] [place], [place] [address]Dr. Swathi Reis pH (U) 6.0 [pH] Normal 5-9 [facility] Comment on above: Performed By: #### E RUR ####[facility] Cwforjaiqc8726 [place] [address]Dr. Swathi Reis SPEC GRAVITY 1.010 Normal 1.005-<=1.0 25 [facility] Comment on above: Performed By: #### E RUR ####[facility] Hdyadyaxxg1400 [place] [address]Dr. Swathi Reis UA PROTEIN Negative Normal NEGATIVE/ TRACE [facility] Comment on above: Performed By: #### E RUR ####[facility] Xmtnblbdiy[address] [place], [place] [address]Dr. Swathi Reis UR MICRO IND NOT INDICATED Normal [facility] Comment on above: Performed By: #### E RUR ####[facility] Exyljoxgnz4827 [place] [address]Dr. Swathi Reis Urobilinogen Qn (U) 0.2 {Sánchez'U}/dL Normal 0.2 - 1. 0 [facility] Comment on above: Performed By: #### E RUR ####[facility] Upyklfcwwk[address] [place], [place] [address]Dr. Swathi Reis LACTATE/LACTIC ACIDon 2021 Lactate [Moles/Vol] 0.9 mmol/L Normal 0.7-2.0 [facility] Comment on above: Performed By: #### L ACT ####[facility] Zlxwjoesex[address] [place], [place] [address]Dr. Swathi Reis Lactate [Moles/Vol] 0.9 mmol/L Normal 0.7-2.0 [facility] Comment on above: Performed By: #### L ACT ####[facility] Jflzybaqht[address] [place], [place] [address]Dr. Swathi Reis POINT OF CARE GLUCOSEon 12-23 Glucose [Mass/Vol] 175 mg/dL Critically high 74-106 [facility] Comment on above: Performed By: #### P OCGLUC ####[facility] Ihncdqlggr9142 [place] [address]Dr. Inessatracy Reis Glucose [Mass/Vol] 116 mg/dL Critically high 74-106 [facility] Comment on above: Performed By: #### P OCGLUC ####[facility] Mexshvxbmk[address] [place], [place] [address]Dr. Swathi Reis PROF 14(COMP METB)on 022 Albumin [Mass/Vol] 3.3 g/dL Critically low 3.4-5.0 [facility] Comment on above: Performed By: #### H STROPN, CMP ####[facility] Bbufumzdwv[address] [place], [place] [address]Dr. Swathi Reis Albumin/Globulin [Mass ratio] 0.8 {ratio} Normal [facility] Comment on above: Performed By: #### H STROPN, CMP ####[facility] Tnhsridghs[address] [place], [place] [address]Dr. Swathi Reis ALP [Catalytic activity/Vol] 110 U/L Normal 46-116 [facility] Comment on above: Performed By: #### H STROPN, CMP ####[facility] Tiqeyjyxwx[address] [place], [place] [address]Dr. Swathi Reis ALT [Catalytic activity/Vol] 20 U/L Normal 14-59 [facility] Comment on above: Performed By: #### H STROPN, CMP ####[facility] Fsqfimtynk[address] [place], [place] [address]Dr. Swathi Reis Anion gap [Moles/Vol] 15.9 mmol/L Normal [facility] Comment on above: Performed By: #### H STROPN, CMP ####[facility] Czdrgkrezn[address] [place], [place] [address]Dr. Swathi Reis AST [Catalytic activity/Vol] 24 U/L Normal 15-37 [facility] Comment on above: Performed By: #### H STROPN, CMP ####[facility] Ypvcutolxq[address] [place], [place] [address]Dr. Swathi Reis Bilirubin [Mass/Vol] 0.5 mg/dL Normal 0.2-1.3 [facility] Comment on above: Performed By: #### H STROPN, CMP ####[facility] Ruaaqoiiim60[address] [place] [address]Dr. Swathi Reis Calcium [Mass/Vol] 9.5 mg/dL Normal 8.5-10.1 [facility] [place] Comment on above: Performed By: #### H STROPN, CMP ####[facility] Okasptbbpb[address] [place], [place] [address]Dr. Swathi Reis Chloride [Moles/Vol] 100 mmol/L Normal 98-107 [facility] Comment on above: Performed By: #### H STROPN, CMP ####[facility] Lgaifhfscc[address] [place], [place] [address]Dr. Swathi Reis CO2 [Moles/Vol] 27.8 mmol/L Normal 22.0-30.0 [facility] Comment on above: Performed By: #### H STROPN, CMP ####[facility] K[address] [place], [place] [address]Dr. Swathi Reis Creatinine [Mass/Vol] 1.21 mg/dL Critically high 0.52-1.04 [facility] Comment on above: Performed By: #### H STROPN, CMP ####[facility] Gnqtbngqpy[address] [place], [place] [address]Dr. Swathi Reis EGFR-AF ARGENTINE 52 mL/min/1.73m2 Critically low >=60 [facility] Comment on above: Performed By: #### H STROPN, CMP ####[facility] Qmmgiqwsdy[address] [place], [place] [address]Dr. Swathi Chato EGFR-NON AF ARGENTINE 43 mL/min/1.73m2 Critically low >=60 [facility] Comment on above: Performed By: #### H STROPN, CMP ####[facility] Fcjfsdfrzo[address] [place], [place] [address]Dr. Swathi Reis Globulin (S) [Mass/Vol] 4.1 g/dL Normal [facility] Comment on above: Performed By: #### H STROPN, CMP ####[facility] Pfyngqnwqk[address] [place], [place] [address]Dr. Swathi Reis Glucose [Mass/Vol] 195 mg/dL Critically high 74-106 T [facility] Comment on above: Performed By: #### H RAFFI, CMP ####[facility] Dxavisyece[address] [place] [address]Dr. Swathi Reis Potassium [Moles/Vol] 3.7 mmol/L Normal 3.4-5.0 [facility] Comment on above: Performed By: #### H RAFFI, CMP ####[facility] [address]yjfzvd[address] [place], [place] [address]Dr. Swathi Reis Protein [Mass/Vol] 7.4 g/dL Normal 6.1-8.2 The [facility] Comment on above: Performed By: #### H RAFFI, CMP ####[facility] Mdwilyaqcv[address] [place], [place] [address]Dr. Swathi Reis Sodium [Moles/Vol] 140 mmol/L Normal 137-145 [facility] [place] Comment on above: Performed By: #### H RAFFI, CMP ####[facility] Iajtkhbsxm[address] [place], [place] [address]Dr. Swathi Reis Urea nitrogen [Mass/Vol] 22.0 mg/dL Critically high 7.0-18.0 [facility] Comment on above: Performed By: #### H RAFFI, CMP ####[facility] Weqmcjeweg[address] [place], [place] [address]Dr. Swathi Reis Urea nitrogen/Creatinine [Mass ratio] 18.2 mg/mg Normal [facility] Comment on above: Performed By: #### H RAFFI, CMP ####[facility] Dfwfhiqcah[address] [place], [place] [address]Dr. Swathi Chato T4on 01-11-2022 T4 [Mass/Vol] 9.10 ug/dL Normal 5.53-11.[address] [facility] Comment on above: Performed By: #### T SH, T4 ####[facility] Wbzpypvyqu[address] [place], [place] [address]Dr. Swathi Chato TROPONIN, HIGH SENSITIVITYon 01-11-2022 HSTROP 13.7 pg/mL Normal 4.0-35.5 The [facility] Comment on above: Result Comment: CUT- OFF POINTS HAVE BEEN ESTABLISHED BASED ON THE FOURTH UNIVERSAL DEFINITIONS OF MYOCARDIALINFARCTION. THE UPPER REFERENCE LIMIT (URL) OF TROPONIN, DEFINED THE 99TH PERCENTILE OFcTnI DISTRIBUTION IN A REFERENCE POPULATION, HAS BEEN CONFIRMED THE DECISION THRESHOLDFOR [place] DIAGNOSIS. Performed By: #### H STROPN, CMP ####[facility] [address] [place] [address]Dr. Swathi Reis TSHon 01-11-2022 TSH 2.618 uIU/mL Normal 0.470-4.[address] [facility] Comment on above: Performed By: #### T SH, T4 ####[facility] Ebulqb[address]qi[address] [place], [place] [address]Dr. Swathi Reis TSH RANGE SEE BELOW Normal [facility] Comment on above: Result Comment: <0.3 4 UIU/ml HYPERTHYROID 0.34-5.60 UIU/ml EUTHYROID >5.60 UIU/ml HYPOTHYROID Performed By: #### T SH, T4 ####[facility] Someqjtehn[address] [place], [place] [address]Dr. Swathi Reis CBC AUTO DIFFon 01-09-2022 BASO # 0.1 103/ul Normal 0.0-0.1 [facility] Comment on above: Performed By: #### C BC ####[facility] Pfkovnvwua[address] [place], [place] [address]Dr. Swathi Reis Basophils/100 WBC (Bld) 0.6 % Normal 0.2-2.0 [facility] Comment on above: Performed By: #### C BC ####[facility] Xmgr[address]ksgyd[address] [place], [place] [address]Dr. Swathi Reis EO # 0.2 103/ul Normal 0.0-0.7 [facility] Comment on above: Performed By: #### C BC ####[facility] Koermduusu[address] [place], [place] [address]Dr. Swathi Reis Eosinophils/100 WBC (Bld) 2.7 % Normal 0.9-7.0 [facility] Comment on above: Performed By: #### C BC ####[facility] [address]fw[address] [place] [address]Dr. Swathi Reis Erythrocyte distribution width (RBC) [Ratio] 13.2 % Normal 11.0-15.0 [facility] Comment on above: Performed By: #### C BC ####[facility] [address]fo[address] [place] [address]Dr. Swathi Reis Hematocrit (Bld) [Volume fraction] 39.7 % Normal 36.0-48.0 [facility] Comment on above: Performed By: #### C BC ####[facility] [address]vraklofqa[address] [place] [address]Dr. Swathi Reis Hemoglobin (Bld) [Mass/Vol] 12.7 g/dL Normal 12.0-16.0 [facility] Comment on above: Performed By: #### C BC ####[facility] Hcaxrrbn[address] [place], [place] [address]Dr. Swathi Reis IG # 0.04 10e3/ul Critically high 0.00-0.03 [facility] Comment on above: Performed By: #### C BC ####[facility] Maknggbayo[address] [place], [place] [address]Dr. Swathi Chato IG % 0.4 % Normal 0.0-0.5 [facility] Comment on above: Performed By: #### C BC ####[facility] X[address]shgmlc[address] [place] [address]Dr. Inessatracy Reis LYMPH # 1.4 103/ul Normal 1.2-3.8 [facility] Comment on above: Performed By: #### C BC ####[facility] [address] [place], [place] [address]Dr. Inessatracy Reis Lymphocytes/100 WBC (Bld) 15.9 % Critically low 20.5-60.0 [facility] Comment on above: Performed By: #### C BC ####[facility] Imxil[address]utyf[address] [place], [place] [address]Dr. Inessatracy Reis MANUAL DIFF REQ NO Normal The [facility] Comment on above: Performed By: #### C BC ####[facility] Pe[address]ad[address] [place], [place] [address]Dr. Swathi Reis MCH (RBC) [Entitic mass] 30.0 pg Normal 26.7-34.0 [facility] Comment on above: Performed By: #### C BC ####[facility] [address]utmxd[address] [place] [address]Dr. Swathi Reis MCHC (RBC) [Mass/Vol] 32.0 g/dL Normal 29.9-35.2 [facility] Comment on above: Performed By: #### C BC ####[facility] Owaxt[address]arxv[address] [place] [address]Dr. Swathi Reis MCV (RBC) [Entitic vol] 93.9 fL Normal 81.0-99.0 [facility] Comment on above: Performed By: #### C BC ####[facility] [address]wzbwfqs35[address] [place] [address]Dr. Swathi Chato MONO # 0.9 103/ul Critically high 0.3-0.8 The [facility] Comment on above: Performed By: #### C BC ####[facility] [address]jv[address]hqbhs[address] [place] [address]Dr. Inessatracy Reis Monocytes/100 WBC (Bld) 9.7 % Normal 1.7-12.0 [facility] Comment on above: Performed By: #### C BC ####[facility] [address]om[address]fma[address] [place] [address]Dr. Swathi Reis NEUT # 6.3 103/ul Normal 1.4-6.5 [facility] Comment on above: Performed By: #### C BC ####[facility] [address]wt[address]xq[address] [place] [address]Dr. Swathi Chato Neutrophils/100 WBC (Bld) 70.7 % Normal 43.0-75.0 [facility] Comment on above: Performed By: #### C BC ####[facility] Y[address]heze[address] [place] [address]Dr. Swathi Chato Platelet mean volume (Bld) [Entitic vol] 10.7 fL Normal 9.5-13.5 [facility] Comment on above: Performed By: #### C BC ####[facility] [address] [place], [place] [address]Hb. Swathi Reis PLT 269 103/ul Normal 150-450 [facility] Comment on above: Performed By: #### C BC ####[facility] [address] [place] [id number]. Swathi Reis RBC 4.23 106/ul Normal 4.20-5.40 [facility] Comment on above: Performed By: #### C BC ####[facility] [address]ov[address] [place] [address]Dr. Swathi Reis WBC 8.9 103/ul Normal 4.0-11.0 [facility] Comment on above: Performed By: #### C BC ####[facility] Yyikpqucef[address] [place] [address]Dr. Swathi Reis FREE T3on 01-09-2022 FREE T3 2.19 pg/mlL Critically low 2.77-5.27 [facility] Comment on above: Performed By: #### T SH, T4, FT3, LIPID, CMP ####[facility] [address] [place] [address]Dr. Swathi Reis GLYCOHEMOGLOBIN A1Con 2021 ADA RECOMMENDATION ADA THERAPEUTIC TARG ET 6.0 - 7.0 ACTION SUGGESTED > 7.0 [facility] Comment on above: Performed By: #### A 1C ####[facility] [address]zhv[address] [place] [address]Dr. Swathi Reis Glucose [Mass/Vol] 137 mg/dL Normal [facility] Comment on above: Performed By: #### A 1C ####[facility] Ha[address]avprb[address] [place] [id number]. Swathi Reis HbA1c (Bld) [Mass fraction] 6.4 % Critically high <=6.0 [facility] Comment on above: Performed By: #### A 1C ####[facility] Brtyotheux[address] [place] [address]Dr. Swathi Reis LIPID PROFILEon 01-09-2022 CHOL-HDL RATIO NORM SEE BELOW Normal [facility] Comment on above: Result Comment: 3.3 - 4.4 LOW RISK 4.4 - 7.1 AVERAGE RISK 7.1 - 11.0 MODERATE RISK >11.0 HIGH RISK Performed By: #### T SH, T4, FT3, LIPID, CMP ####[facility] [address]rptjtb[address] [place] [address]Dr. Swathi Reis Cholesterol [Mass/Vol] 238 mg/dL Critically high <=200 [facility] Comment on above: Performed By: #### T SH, T4, FT3, LIPID, CMP ####[facility] Azzezwnadw[address] [place] [id number]. Inessalan Reis Cholesterol in HDL [Mass/Vol] 95 mg/dL Critically high 40-60 [facility] Comment on above: Performed By: #### T SH, T4, FT3, LIPID, CMP ####[facility] [address] [place], [place] [address]Dr. Swathi Reis Cholesterol in LDL [Mass/Vol] 121.0 mg/dL Normal [facility] Comment on above: Performed By: #### T SH, T4, FT3, LIPID, CMP ####[facility] Qebwgjfcxz[address] [place] [address]Dr. Swathi Reis Cholesterol.total/Ch olesterol in HDL [Mass ratio] 2.5 {ratio} Normal [facility] Comment on above: Performed By: #### T SH, T4, FT3, LIPID, CMP ####[facility] [address] [place] [address]Dr. Swathi Reis HDL NORMAL > or = 60 mg/dl - LO W CARDIOVASCULAR RISK <40 mg/dl - HIGH CARDIOVASCULAR RISK Normal [facility] Comment on above: Performed By: #### T SH, T4, FT3, LIPID, CMP ####[facility] [address] [place], [place] [address]Dr. Swathi Reis LDL CALC NORMAL SEE BELOW Normal [facility] Comment on above: Result Comment: <100 mg/dl OPTIMAL 100 - 129 mg/dl NEAR OR ABOVE OPTIMAL 130 - 159 mg/dl BORDERLINE HIGH 160 - 189 mg/dl HIGH >190 mg/dl VERY HIGH Performed By: #### T SH, T4, FT3, LIPID, CMP ####[facility] L[address]ceanpfme[address] [place] [address]Dr. Swathi Reis Triglyceride [Mass/Vol] 110 mg/dL Normal <=150 [facility] Comment on above: Performed By: #### T SH, T4, FT3, LIPID, CMP ####[facility] Z[address]ucvcwabl[address] [place] [address]Dr. Swathi Reis VLDL CALC 22.0 mg/dL Normal [facility] Comment on above: Performed By: #### T SH, T4, FT3, LIPID, CMP ####[facility] [address]tidszdpo[address] [place] [address]Dr. Swathi Reis PROF 14(COMP METB)on 022 Albumin [Mass/Vol] 3.5 g/dL Normal 3.4-5.0 [facility] [place] Comment on above: Performed By: #### T SH, T4, FT3, LIPID, CMP ####[facility] [address]jxdvww8[address] [place] [address]Dr. Swathi Reis Albumin/Globulin [Mass ratio] 0.9 {ratio} Normal [facility] Comment on above: Performed By: #### T SH, T4, FT3, LIPID, CMP ####[facility] Q[address]jooeuiv[address] [place] [address]Dr. Swathi Reis ALP [Catalytic activity/Vol] 112 U/L Normal 46-116 [facility] Comment on above: Performed By: #### T SH, T4, FT3, LIPID, CMP ####[facility] [address]jrucjn6[address] [place] [address]Dr. Swathi Reis ALT [Catalytic activity/Vol] 14 U/L Normal 14-59 [facility] Comment on above: Performed By: #### T SH, T4, FT3, LIPID, CMP ####[facility] Meluhasxtk[address] [place] [address]Dr. Swathi Reis Anion gap [Moles/Vol] 10.4 mmol/L Normal [facility] Comment on above: Performed By: #### T SH, T4, FT3, LIPID, CMP ####[facility] Lrbfxtlnjh[address] [place] [address]Dr. Swathi Reis AST [Catalytic activity/Vol] 18 U/L Normal 15-37 [facility] Comment on above: Performed By: #### T SH, T4, FT3, LIPID, CMP ####[facility] Qicrhsunvn8884 [place] [address]Dr. Swathi Reis Bilirubin [Mass/Vol] 0.6 mg/dL Normal 0.2-1.3 [facility] Comment on above: Performed By: #### T SH, T4, FT3, LIPID, CMP ####[facility] Bruerrdkpq[address] [place] [address]Dr. Swathi Reis Calcium [Mass/Vol] 9.4 mg/dL Normal 8.5-10.1 [facility] [place] Comment on above: Performed By: #### T SH, T4, FT3, LIPID, CMP ####[facility] [address] [place], [place] [address]Dr. Swathi Reis Chloride [Moles/Vol] 101 mmol/L Normal 98-107 [facility] Comment on above: Performed By: #### T SH, T4, FT3, LIPID, CMP ####[facility] Sm[address] [place], [place] [address]Dr. Swathi Reis CO2 [Moles/Vol] 33.2 mmol/L Critically high 22.0-30.0 [facility] Comment on above: Performed By: #### T SH, T4, FT3, LIPID, CMP ####[facility] Eesfx[address]wn[address] [place], [place] [address]Dr. Swathi Reis Creatinine [Mass/Vol] 1.13 mg/dL Critically high 0.52-1.04 [facility] Comment on above: Performed By: #### T SH, T4, FT3, LIPID, CMP ####[facility] Hgerbolyav[address] [place] [address]Dr. Swathi Reis EGFR-AF ARGENTINE 57 mL/min/1.73m2 Critically low >=60 [facility] Comment on above: Performed By: #### T SH, T4, FT3, LIPID, CMP ####[facility] Vswjwkfqrz45[address] [place] [address]Dr. Swathi Reis EGFR-NON AF ARGENTINE 47 mL/min/1.73m2 Critically low >=60 [facility] Comment on above: Performed By: #### T SH, T4, FT3, LIPID, CMP ####[facility] Pe[address]bvcij[address] [place] [address]Dr. Swathi Reis Globulin (S) [Mass/Vol] 4.1 g/dL Normal [facility] Comment on above: Performed By: #### T SH, T4, FT3, LIPID, CMP ####[facility] Ycwyzpwozx[address] [place] [address]Dr. Swathi Reis Glucose [Mass/Vol] 144 mg/dL Critically high 74-106 [facility] Comment on above: Performed By: #### T SH, T4, FT3, LIPID, CMP ####[facility] [address] [place], [place] [address]Dr. Swathi Reis Potassium [Moles/Vol] 3.6 mmol/L Normal 3.4-5.0 [facility] Comment on above: Performed By: #### T SH, T4, FT3, LIPID, CMP ####[facility] Jxaqilwd[address] [place], [place] [address]Dr. Swathi Reis Protein [Mass/Vol] 7.6 g/dL Normal 6.1-8.2 [facility] Comment on above: Performed By: #### T SH, T4, FT3, LIPID, CMP ####[facility] Lhnljaaino4[address] [place] [address]Dr. Swathi Reis Sodium [Moles/Vol] 141 mmol/L Normal 137-145 [facility] Comment on above: Performed By: #### T SH, T4, FT3, LIPID, CMP ####[facility] Esovjskxmi48[address] [place] [address]Dr. Swathi Reis Urea nitrogen [Mass/Vol] 22.0 mg/dL Critically high 7.0-18.0 [facility] Comment on above: Performed By: #### T SH, T4, FT3, LIPID, CMP ####[facility] Hzhhxhyqjz6224 [place] [address]Dr. Swathi Reis Urea nitrogen/Creatinine [Mass ratio] 19.5 mg/mg Normal [facility] Comment on above: Performed By: #### T SH, T4, FT3, LIPID, CMP ####[facility] [address]hlxkrraq[address] [place], [place] [address]Dr. Swathi Reis T4on 01-09-2022 T4 [Mass/Vol] 8.80 ug/dL Normal 5.53-11.[address] [facility] Comment on above: Performed By: #### T SH, T4, FT3, LIPID, CMP ####[facility] Jcnwztfran[address] [place], [place] [address]Dr. Swathi Reis TSHon 01-09-2022 TSH 3.176 uIU/mL Normal 0.470-4.[address] [facility] Comment on above: Performed By: #### T SH, T4, FT3, LIPID, CMP ####[facility] [address]bk[address]zlr[address] [place], [place] [address]Dr. Swathi Reis TSH RANGE SEE BELOW Normal [facility] Comment on above: Result Comment: <0.3 4 UIU/ml HYPERTHYROID 0.34-5.60 UIU/ml EUTHYROID >5.60 UIU/ml HYPOTHYROID Performed By: #### T SH, T4, FT3, LIPID, CMP ####[facility] [address]pbqxa[address] [place], [place] [address]Dr. Swathi Reis VITAMIN D 25 OHon 01-09-2022 VIT D 25-OH 64.4 ng/mL Normal [facility] Comment on above: Performed By: #### V ITAD ####[facility] Smfuranthb[address] [place], [place] [address]Dr. Swathi [facility] VIT D RANGES SEE BELOW Normal [facility] Comment on above: Result Comment: <20 ng/mL Vit D deficient 20 - <30 ng/mL Vit D insufficient 30 - 100 ng/mL Vit D sufficient >100 ng/mL Potential Toxicity Performed By: #### V ITAD ####[facility] [address] [place], [place] [address]Dr. Swathi Reis MG [facility]AMM DIAGNOSTIC 3D GISELE CA Don 01-05-2022 MG [facility] DIAGNOSTIC 3D GISELE CAD Normal [facility] CT head/brain wo conon 12-27 CT head/brain wo con [facility] Main [place] [address] [place] [address] [address] Scan Report Signed Patient: Andrew Barros MR#: [id number] : 1945 Acct:[id number] Age/Sex: 76 / F ADM Date: 12/27/21 Loc: CT Room: Type: [facility] Attending Dr: Brayden Hernandez MD Ordering [...] Cameron Jr., M.D.12/27/2021 1:17 PM Dictation Location: [place] [address] Transcribed By: [facility] 12/27/21 1317 Dictated By: Tex Cameron Jr, MD 12/27/21 1310 Signed By: 12/27/21 1317 Normal [facility] FRESH FROZ PLASMAon 11-24-19 FRESH FROZ PLASMA Normal [facility] Comment on above: Performed By: #### F ####[facility] [address]wt[address] [place], [place] [address] Re[address] head/brain wo conon 11-17 CT head/brain wo con [facility] [place] [address] CT Scan Report Signed Patient: Andrew Barros MR#: [id number] : 1945 Acct:[id number] Age/Sex: 76 / F ADM Date: 11/17/21 Loc: CT Room: Type: [facility] Attending Dr: Brayden Hernandez MD Ordering [...] Henny Mckeon M.D.11/17/2021 1:35 PM Dictation Location: [facility]--10 Transcribed By: SOLOMON 11/17/21 133 Dictated By: Henny Mckeon MD 11/17/21 133 Signed By: 11/17/[address] [facility] Basic Metabolic Panelon 10-24 Calcium [Mass/Vol] 8.9 mg/dL Normal 8.2-10.2 [facility] Comment on above: Performed By: #### P T #### [address] Chloride [Moles/Vol] 94 mmol/L Low 95-114 [facility] Comment on above: Performed By: #### P T #### [address] CO2 [Moles/Vol] 22.6 mmol/L Normal 22.0-30.0 [facility] Comment on above: Performed By: #### P T #### [address] Creatinine [Mass/Vol] 1.38 mg/dL High 0.44-1.03 [facility] Comment on above: Performed By: #### P T #### [address] Creatinine Clr Calc Pharmacy 29.48 [facility] Comment on above: Result Comment: PERF ORMED BY: [place] [address] PATHOLOGIST MANAGER PHILOSOPHY ADRIAN ROBERTSON M.D. Performed By: #### P T #### [address] Estimated GFR ( Rafael[place] 45 [facility] Comment on above: Result Comment: GFR estimated reference range: According to KDOQI guidelines, <60 ml/min/1.73m2 is sufficient to diagnose a patient with chronic kidney disease. Performed By: #### P T #### [place] [address] [place] Estimated GFR (Non- Am 37 [facility] Comment on above: Performed By: #### P T #### [facility] [address] [place] [address] [place] Glucose [Mass/Vol] 297 mg/dL High 70-100 [facility] Comment on above: Result Comment: [place] om Glucose Reference Range is dependent on time and content of last meal. Glucose of more than 200 mg/dL in a nonstressed, ambulatory subject supports the diagnosis of Diabetes Mellitus. ADA recommended reference range Performed By: #### P T #### [facility] [address] Potassium [Moles/Vol] 3.7 mmol/L Normal 3.5-5.1 [facility] Comment on above: Performed By: #### P T #### [facility] [address] Sodium [Moles/Vol] 132 mmol/L Low 136-146 [facility] Comment on above: Performed By: #### P T #### [facility] [address] Urea nitrogen [Mass/Vol] 19 mg/dL Normal 9-23 [facility] Comment on above: Performed By: #### P T #### [facility] [address] [place] [address] Creatinine and Glomerular fi ltration rate.predicted panel (S/P/Bld)Ordered By: Shaka Echavarria on 11-11-2021 Creatinine [Mass/Vol] 1.38 mg/dL 0.44-1.03 [facility] Estimated glomerular filtrat ion rate (GFR) non- AmericanOrdered By: Shaka Echavarria on 11-11-2021 GFR/1.73 sq M.predicted among non-blacks MDRD (S/P/Bld) [Vol rate/Area] 37 mL/Min [facility] Glucose Glucometer (BldC) [M ass/Vol]Ordered By: Shaka Echavarria on 11-11-2021 Glucose [Mass/Vol] 233 mg/dL [facility] Comment on above: Random Glucose Refer ence Range is dependent on time and content of last meal. Glucose of more than 200 mg/dL in a nonstressed, ambulatory subject supports the diagnosis of Diabetes Mellitus. Glucose Poct Glucometerson 0 11-11-2021 Commemt1 Glu2: Cleaned Meter [facility] Comment on above: Result Comment: PERF ORMED BY: [place] [address] PATHOLOGIST MANAGER PHILOSOPHY ADRIAN ROBERTSON M.D. Performed By: #### P T #### [address] Glucose [Mass/Vol] 233 mg/dL Normal [facility] Comment on above: Result Comment: [place] om Glucose Reference Range is dependent on time and content of last meal. Glucose of more than 200 mg/dL in a nonstressed, ambulatory subject supports the diagnosis of Diabetes Mellitus. Performed By: #### P T #### [facility] [address] [place] [address] Commemt1 Glu2: Cleaned Meter [facility] Comment on above: Result Comment: PERF ORMED BY: [place] [address] PATHOLOGIST MANAGER PHILOSOPHY ADRIAN ROBERTSON M.D. Performed By: #### P T #### [address] Glucose [Mass/Vol] 127 mg/dL Normal [facility] Comment on above: Result Comment: [place] om Glucose Reference Range is dependent on time and content of last meal. Glucose of more than 200 mg/dL in a nonstressed, ambulatory subject supports the diagnosis of Diabetes Mellitus. Performed By: #### P T #### [facility] [address] [place] [address] No Panel InformationOrdered By: Shaka Echavarria on 11-11-2021 Bedside Glucose Comment Glu2: cleaned meter [facility] Estimated GFR () 45 mL/Min [facility] Comment on above: GFR estimated refere nce range: According to KDOQI guidelines, <60 ml/min/1.73m2 is sufficient to diagnose a patient with chronic kidney disease. Pharmacy Creatinine Clearance (Chem 29.48 [facility] Serum or plasma calcium missy urement (mass/volume)Ordered By: ShakaVazquez on 11-11-2021 Calcium [Mass/Vol] 8.9 mg/dL 8.2-10.2 [facility] Serum or plasma chloride ken surement (moles/volume)Ordered By: Shaka Jericho on 11-11-2021 Chloride [Moles/Vol] 94 mmol/L 95-114 [facility] Serum or plasma glucose missy urement (mass/volume)Ordered By: ShakaVazquez on 11-11-2021 Glucose [Mass/Vol] 297 mg/dL 70-100 [facility] Comment on above: Delta: 179 on [address]ADA recommended reference rangeRandom Glucose Reference Range is dependent on time and content of last meal. Glucose of more than 200 mg/dL in a nonstressed, ambulatory subject supports the diagnosis of Diabetes Mellitus. Serum or plasma potassium me asurement (moles/volume)Ordered By: ShakaCruzam on 11-11-2021 Potassium [Moles/Vol] 3.7 mmol/L 3.5-5.1 [facility] Serum or plasma sodium measu rement (moles/volume)Ordered By: Shaka [facility] on 11-11-2021 Sodium [Moles/Vol] 132 mmol/L 136-146 [facility] Serum or plasma total carbon dioxide measurement (moles/volume)Ordered By: Shaka [facility] on 11-11-2021 CO2 [Moles/Vol] 22.6 mmol/L 22.0-30.0 [facility] Serum or plasma urea nitroge n measurement (mass/volume)Ordered By: Shaka Jericho on 11-11-2021 Urea nitrogen [Mass/Vol] 19 mg/dL 9-23 [facility] Basic Metabolic Panelon 10-24 Calcium [Mass/Vol] 8.9 mg/dL Normal 8.2-10.2 [facility] Comment on above: Performed By: #### B MP, PT, CBC #### [address] Chloride [Moles/Vol] 96 mmol/L Normal 95-114 [facility] Comment on above: Performed By: #### B MP, PT, CBC #### [facility] [address] CO2 [Moles/Vol] 29.6 mmol/L Normal 22.0-30.0 [facility] Comment on above: Performed By: #### B MP, PT, CBC #### [facility] [address] Creatinine [Mass/Vol] 0.89 mg/dL Normal 0.44-1.03 [facility] Comment on above: Performed By: #### B MP, PT, CBC #### [facility] [address] Creatinine Clr Calc Pharmacy 45.71 [facility] Comment on above: Result Comment: PERF ORMED BY: [place] [address] PATHOLOGIST MANAGER PHILOSOPHY ADRIAN ROBERTSON M.D. Performed By: #### B MP, PT, CBC #### [facility] [address] Estimated GFR ( Rafaela > 60 [facility] Comment on above: Result Comment: GFR estimated reference range: According to KDOQI guidelines, <60 ml/min/1.73m2 is sufficient to diagnose a patient with chronic kidney disease. Performed By: #### B MP, PT, CBC #### [facility] [address] Estimated GFR (Non- Am > 60 [facility] Comment on above: Performed By: #### B MP, PT, CBC #### [facility] [address] [place] [address] [place] Glucose [Mass/Vol] 179 mg/dL High 70-100 [facility] Comment on above: Result Comment: [place] Glucose Reference Range is dependent on time and content of last meal. Glucose of more than 200 mg/dL in a nonstressed, ambulatory subject supports the diagnosis of Diabetes Mellitus. ADA recommended reference range Performed By: #### B MP, PT, CBC #### [facility] [address] Potassium [Moles/Vol] 3.1 mmol/L Low 3.5-5.1 [facility] Comment on above: Performed By: #### B MP, PT, CBC #### [facility] [address] Sodium [Moles/Vol] 137 mmol/L Normal 136-146 [facility] Comment on above: Performed By: #### B MP, PT, CBC #### [facility] [address] Urea nitrogen [Mass/Vol] 10 mg/dL Normal 9-23 [facility] Comment on above: Performed By: #### B MP, PT, CBC #### [facility] [address] Basophils Auto (Bld) [#/Vol] Ordered By: Salma Cortes on 11-10-2021 Basophils (Bld) [#/Vol] 0.0 10*3/uL 0.0-0.2 [facility] Basophils/100 WBC Auto (Bld) Ordered By: Salma Cortes on 11-10-2021 Basophils/100 WBC (Bld) 0.2 % [facility] Blood hemoglobin measurement (mass/volume)Ordered By: Salma Cortes on 11-10-2021 Hemoglobin (Bld) [Mass/Vol] 13.2 g/dL 11.8-15.4 [facility] Blood leukocytes automated c ount (number/volume)Ordered By: Salma Cortes on 11-10-2021 WBC (Bld) [#/Vol] 10.7 10*3/uL 4.5-11.[address] [facility] [address] head/brain wo bekaon 11-10 CT head/brain [place] [facility] [address] CT Scan Report Signed Patient: Andrew Barros MR#: [id number] : 1945 Acct:[id number] Age/Sex: 76 / F ADM Date: 11/09/21 Loc: Room: 2R4542-6 Type: ADM IN Attending Dr: Shaka Echavarria [...] Trina Watts M.D.11/10/2021 8:43 AM Dictation Location: [place] [address] Transcribed By: [facility] 11/10/21 0843 Dictated By: Trina Watts II, MD 11/10/21 0840 Signed By: 11/10/21 0843 Normal [facility] Complete Blood Count Auto Di ffon 11-10-2021 Basophils (Bld) [#/Vol] 0.0 10*3/uL Normal 0.0-0.2 [facility] Comment on above: Result Comment: PERF ORMED BY: [place] [address] PATHOLOGIST MANAGER PHILOSOPHY ADRIAN ROBERTSON M.D. Performed By: #### B MP, PT, CBC #### [facility] [address] [place] [address] [place] Basophils/100 WBC (Bld) 0.2 % Normal . [facility] Comment on above: Performed By: #### B MP, PT, CBC #### [facility] [address] Eosinophils (Bld) [#/Vol] 0.0 10*3/uL Normal 0.0-0.45 [facility] Comment on above: Performed By: #### B MP, PT, CBC #### [facility] [address] [place] [address] [place] Eosinophils/100 WBC (Bld) 0.1 % Normal . [facility] Comment on above: Performed By: #### B MP, PT, CBC #### [facility] [address] [place] [address] [place] Erythrocyte distribution width (RBC) [Ratio] 13.8 % Normal 11.9-15.3 [facility] Comment on above: Performed By: #### B MP, PT, CBC #### [facility] [address] [place] [address] [place] Hematocrit (Bld) [Volume fraction] 39.1 % Normal 34.0-46.4 [facility] Comment on above: Performed By: #### B MP, PT, CBC #### [facility] [address] [place] [address] [place] Hemoglobin (Bld) [Mass/Vol] 13.2 g/dL Normal 11.8-15.4 [facility] Comment on above: Performed By: #### B MP, PT, CBC #### [facility] [address] Lymphocytes (Bld) [#/Vol] 1.3 10*3/uL Normal 1.00-4.8 [facility] Comment on above: Performed By: #### B MP, PT, CBC #### [facility] [address] Lymphocytes/100 WBC (Bld) 12.0 % Normal . [facility] Comment on above: Performed By: #### B MP, PT, CBC #### [facility] [address] MCH (RBC) [Entitic mass] 30.4 pg Normal 24.7-34.3 [facility] Comment on above: Performed By: #### B MP, PT, CBC #### [address] MCV (RBC) [Entitic vol] 90.0 fL Normal 80-100 [facility] Comment on above: Performed By: #### B MP, PT, CBC #### [address] Mean Corpuscular HGB Conc 33.8 g/dL Normal 32.0-35.0 [facility] Comment on above: Performed By: #### B MP, PT, CBC #### [facility] [address] [place] [address] [place] Monocytes (Bld) [#/Vol] 1.2 10*3/uL High 0.0-0.8 [facility] Comment on above: Performed By: #### B MP, PT, CBC #### [place] [address] [place] Monocytes/100 WBC (Bld) 10.8 % Normal . [facility] Comment on above: Performed By: #### B MP, PT, CBC #### [facility] [address] [place] [address] [place] Neutrophils (Bld) [#/Vol] 8.2 10*3/uL High 1.8-7.7 [facility] Comment on above: Performed By: #### B MP, PT, CBC #### [facility] [address] Neutrophils/100 WBC (Bld) 76.9 % Normal . [facility] Comment on above: Performed By: #### B MP, PT, CBC #### [facility] [address] Nucleated RBC/100 WBC (Bld) [Ratio] 0.1 % Normal 0-0.5 [facility] Comment on above: Performed By: #### B MP, PT, CBC #### [facility] [address] Platelet mean volume (Bld) [Entitic vol] 9.2 fL Normal 6.3-10.7 [facility] Comment on above: Performed By: #### B MP, PT, CBC #### [address] Platelets (Bld) [#/Vol] 261 10*3/uL Normal 150-450 [facility] Comment on above: Performed By: #### B MP, PT, CBC #### [facility] [address] [place] [address] [place] RBC (Bld) [#/Vol] 4.35 10*6/uL Normal 3.60-5.00 [facility] Comment on above: Performed By: #### B MP, PT, CBC #### [place] [address] [place] WBC (Bld) [#/Vol] 10.7 10*3/uL Normal 4.5-11.0 [facility] Comment on above: Performed By: #### B MP, PT, CBC #### [place] [address] [place] Eosinophils Auto (Bld) [#/Vo l]Ordered By: Salma Cortes on 11-10-2021 Eosinophils (Bld) [#/Vol] 0.0 10*3/uL 0.0-0.45 [facility] Eosinophils/100 WBC Auto (Bl d)Ordered By: Salma Cortes on 11-10-2021 Eosinophils/100 WBC (Bld) 0.1 % [facility] Erythrocyte distribution wid th Auto (RBC) [Ratio]Ordered By: Salma Schwabalfred on 11-10-2021 Erythrocyte distribution width (RBC) [Ratio] 13.8 % 11.9-15.3 [facility] Glucose Poct Glucometerson 0 11-10-2021 Glucose [Mass/Vol] 183 mg/dL Normal [facility] Comment on above: Result Comment: [facility] Glucose Reference Range is dependent on time and content of last meal. Glucose of more than 200 mg/dL in a nonstressed, ambulatory subject supports the diagnosis of Diabetes Mellitus. PERFORMED BY: [address] [id number] PATHOLOGIST MANAGER PHILOSOPHY ADRIAN ROBERTSON M.D. Performed By: #### G LULS #### Point of Care testing , Glucose [Mass/Vol] 135 mg/dL Normal [facility] Comment on above: Result Comment: [facility] Glucose Reference Range is dependent on time and content of last meal. Glucose of more than 200 mg/dL in a nonstressed, ambulatory subject supports the diagnosis of Diabetes Mellitus. PERFORMED BY: [address] [id number] PATHOLOGIST MANAGER PHILOSOPHY ADRIAN ROBERTSON M.D. Performed By: #### G LULS #### Point of Care testing , Glucose [Mass/Vol] 235 mg/dL Normal [facility] Comment on above: Result Comment: [facility] Glucose Reference Range is dependent on time and content of last meal. Glucose of more than 200 mg/dL in a nonstressed, ambulatory subject supports the diagnosis of Diabetes Mellitus. PERFORMED BY: [address] [place] [address] PATHOLOGIST MANAGER PHILOSOPHY ADRIAN ROBERTSON M.D. Performed By: #### G LULS #### Point of Care testing , Glucose [Mass/Vol] 110 mg/dL Normal [facility] Comment on above: Result Comment: [facility] Glucose Reference Range is dependent on time and content of last meal. Glucose of more than 200 mg/dL in a nonstressed, ambulatory subject supports the diagnosis of Diabetes Mellitus. PERFORMED BY: [facility] [place] [address] PATHOLOGIST MANAGER PHILOSOPHY ADRIAN ROBERTSON M.D. Performed By: #### G KIMBERLY #### Point of Care testing , Hematocrit Auto (Bld) [Volum e fraction]Ordered By: Salma Cortes on 11-10-2021 Hematocrit (Bld) [Volume fraction] 39.1 % 34.0-46.4 [facility] Laboratory - CoagulationOrde red By: Salma Cortes on 11-10-2021 PT Coag (PPP) [Time] 12.6 s 9.0-12.9 [facility] - Hematology and Cell countsOrdered By: Salma Cortes on 11-10-2021 Nucleated RBC/100 WBC (Bld) [Ratio] 0.1 % 0-0.5 [facility] Lymphocytes Auto (Bld) [#/Vo l]Ordered By: Salma Cortes on 11-10-2021 Lymphocytes (Bld) [#/Vol] 1.3 10*3/uL 1.00-4.8 [facility] Lymphocytes/100 WBC Auto (Bl d)Ordered By: Salma Cortes on 11-10-2021 Lymphocytes/100 WBC (Bld) 12.0 % [facility] MCH Auto (RBC) [Entitic mass ]Ordered By: Salma Cortes on 11-10-2021 MCH (RBC) [Entitic mass] 30.4 pg 24.7-34.3 [facility] MCHC Auto (RBC) [Mass/Vol]Or dered By: Salma Cortes on 11-10-2021 MCHC (RBC) [Mass/Vol] 33.8 g/dL 32.0-35.0 [facility] MCV Auto (RBC) [Entitic vol] Ordered By: Salma Cortes on 11-10-2021 MCV (RBC) [Entitic vol] 90.0 fL 80-100 [facility] Monocytes Auto (Bld) [#/Vol] Ordered By: Salma Cortes on 11-10-2021 Monocytes (Bld) [#/Vol] 1.2 10*3/uL 0.0-0.8 [facility] Monocytes/100 WBC Auto (Bld) Ordered By: Salma Cortes on 11-10-2021 Monocytes/100 WBC (Bld) 10.8 % [facility] Neutrophils Auto (Bld) [#/Vo l]Ordered By: Salma Cortes on 11-10-2021 Neutrophils (Bld) [#/Vol] 8.2 10*3/uL 1.8-7.7 [facility] Neutrophils/100 WBC Auto (Bl d)Ordered By: Salma Cortes on 11-10-2021 Neutrophils/100 WBC (Bld) 76.9 % [facility] Platelet mean volume Auto (B ld) [Entitic vol]Ordered By: Salma Cortes on 11-10-2021 Platelet mean volume (Bld) [Entitic vol] 9.2 fL 6.3-10.7 [facility] Platelet poor plasma interna tional normalized ratio (INR) by coagulation assay (relatOrdered By: Salma Cortes on 11-10-2021 INR Coag (PPP) [Relative time] 1.1 {INR} [facility] Comment on above: INR Therapeutic Rang [...] 11-10-2021 Platelets (Bld) [#/Vol] 261 10*3/uL 150-450 [facility] Prothrombin Time INRon 11-10 INR Coag (PPP) [Relative time] 1.1 {INR} Normal [facility] Comment on above: Result Comment: INR [...] heart valves: 3 - 4.5 PERFORMED BY: [place] [address] PATHOLOGIST MANAGER PHILOSOPHY ADRIAN ROBERTSON M.D. Performed By: #### B MP, PT, CBC #### [address] PT Coag (PPP) [Time] 12.6 s Normal 9.0-12.9 [facility] Comment on above: Performed By: #### B MP, PT, CBC #### [address] INR Coag (PPP) [Relative time] 1.2 {INR} Normal [facility] Comment on above: Order Comment: that [...] heart valves: 3 - 4.5 PERFORMED BY: [place] [address] PATHOLOGIST MANAGER PHILOSOPHY ADRIAN ROBERTSON M.D. Performed By: #### P T #### [address] PT Coag (PPP) [Time] 12.9 s Normal 9.0-12.9 [facility] Comment on above: Order Comment: that no one else will be tiring until 3rd comes in. psw 2013 Performed By: #### P T #### [address] RBC Auto (Bld) [#/Vol]Ordere d By: Salma Cortes on 02-18-2022 RBC (Bld) [#/Vol] 4.35 10*6/uL 3.60-5.00 [facility] BNPon 11-09-2021 Natriuretic peptide B (Bld) [Mass/Vol] 914.0 pg/mL Normal <=1,800.0 [facility] Comment on above: Performed By: #### C MADM, CMP, BNP ####[facility] [address] [place] [address]Dr. Swathi Reis CARDIAC TRINA ADMITon 022 CK [Catalytic activity/Vol] 50 U/L Normal 30-135 [facility] Comment on above: Performed By: #### C MADM, CMP, BNP ####[facility] [address] [place] [address]Dr. Swathi Chato CK.MB [Mass/Vol] 1.14 ng/mL Normal <=2.37 [facility] Comment on above: Performed By: #### C MADM, CMP, BNP ####[facility] [address] [place] [address]Dr. Swathi Reis HSTROP 12.8 pg/mL Normal 4.0-35.5 [facility] Comment on above: Result Comment: CUT- OFF POINTS HAVE BEEN ESTABLISHED BASED ON THE FOURTH UNIVERSAL DEFINITIONS OF MYOCARDIALINFARCTION. THE UPPER REFERENCE LIMIT (URL) OF TROPONIN, DEFINED THE 99TH PERCENTILE OFcTnI DISTRIBUTION IN A REFERENCE POPULATION, HAS BEEN CONFIRMED THE DECISION THRESHOLDFOR [place] DIAGNOSIS. Performed By: #### C MADM, CMP, BNP ####[facility] [address] [place] [address]Dr. Swathi Reis GUANACO 53.0 ng/mL Normal <=61.5 [facility] Comment on above: Performed By: #### C MADM, CMP, BNP ####[facility] [address] [place] [address]Dr. Swathi Chato CBC AUTO DIFFon 11-09-2021 BASO # 0.0 103/ul Normal 0.0-0.1 [facility] Comment on above: Performed By: #### C BC ####[facility] [address] [place] [address]Dr. Swathi Reis Basophils/100 WBC (Bld) 0.3 % Normal 0.2-2.0 [facility] Comment on above: Performed By: #### C BC ####[facility] [address] [place] [address]Dr. Swathi Reis EO # 0.0 103/ul Normal 0.0-0.7 [facility] Comment on above: Performed By: #### C BC ####[facility] [address] [place] [address]Dr. Swathi Reis Eosinophils/100 WBC (Bld) 0.2 % Critically low 0.9-7.0 [facility] Comment on above: Performed By: #### C BC ####[facility] [address] [place], [place] [address]Dr. Swathi Reis Erythrocyte distribution width (RBC) [Ratio] 13.1 % Normal 11.0-15.0 [facility] Comment on above: Performed By: #### C BC ####[facility] [address] [place], [place] [address]Dr. Swathi Reis Hematocrit (Bld) [Volume fraction] 40.8 % Normal 36.0-48.0 [facility] Comment on above: Performed By: #### C BC ####[facility] [address] [place], [place] [address]Dr. Swathi Reis Hemoglobin (Bld) [Mass/Vol] 13.3 g/dL Normal 12.0-16.0 [facility] Comment on above: Performed By: #### C BC ####[facility] [address] [place] [address]Dr. Swathi Reis IG # 0.05 10e3/ul Critically high 0.00-0.03 [facility] Comment on above: Performed By: #### C BC ####[facility] [address] [place], [place] [address]Dr. Swathi Reis IG % 0.4 % Normal 0.0-0.5 [facility] Comment on above: Performed By: #### C BC ####[facility] [address] [place] [address]Dr. Swathi Chato LYMPH # 1.0 103/ul Critically low 1.2-3.8 [facility] Comment on above: Performed By: #### C BC ####[facility] [address] [place] [address]Dr. Swathi Reis Lymphocytes/100 WBC (Bld) 8.3 % Critically low 20.5-60.0 [facility] Comment on above: Performed By: #### C BC ####[facility] [address] [place] [address]Dr. Inessatrcay Reis MANUAL DIFF REQ NO Normal [facility] Comment on above: Performed By: #### C BC ####[facility] [address] [place] [address]Dr. Swathi Chato MCH (RBC) [Entitic mass] 29.8 pg Normal 26.7-34.0 [facility] Comment on above: Performed By: #### C BC ####[facility] [address] [place] [address]Dr. Swathi Reis MCHC (RBC) [Mass/Vol] 32.6 g/dL Normal 29.9-35.2 [facility] Comment on above: Performed By: #### C BC ####[facility] [address] [place] [address]Dr. Swathi Chato MCV (RBC) [Entitic vol] 91.5 fL Normal 81.0-99.0 [facility] Comment on above: Performed By: #### C BC ####[facility] [address] [place] [address]Dr. Swathi Chato MONO # 0.6 103/ul Normal 0.3-0.8 [facility] Comment on above: Performed By: #### C BC ####[facility] [address] [place] [address]Dr. Inessatracy Reis Monocytes/100 WBC (Bld) 4.9 % Normal 1.7-12.0 [facility] Comment on above: Performed By: #### C BC ####[facility] [address] [place], [place] [address]Uh. Swathi Reis NEUT # 10.5 103/ul Critically high 1.4-6.5 [facility] Comment on above: Performed By: #### C BC ####[facility] [address] [place], [place] [address]Ml. Swathi Reis Neutrophils/100 WBC (Bld) 85.9 % Critically high 43.0-75.0 [facility] Comment on above: Performed By: #### C BC ####[facility] [address] [place] [address]Dr. Swathi Reis Platelet mean volume (Bld) [Entitic vol] 10.9 fL Normal 9.5-13.5 [facility] Comment on above: Performed By: #### C BC ####[facility] [address] [place] [address]Dr. Swathi Reis PLT 290 103/ul Normal 150-450 [facility] Comment on above: Performed By: #### C BC ####[facility] [address] [place], [place] [address]Sj. Swathi Reis RBC 4.46 106/ul Normal 4.20-5.40 [facility] Comment on above: Performed By: #### C BC ####[facility] [address] [place] [address]Dr. Swathi Reis WBC 12.3 103/ul Critically high 4.0-11.0 [facility] Comment on above: Performed By: #### C BC ####[facility] [address] [place] [id number]. Swathi Reis CT HEAD WO CONon 11-09-2021 CT HEAD WO CON Normal [facility] Covid-19 PCR ([facility])on 10-24 SARS-CoV-2 (COVID-19) RNA ÓSCAR+probe Ql (Unsp spec) Not detected Normal NOT DETECTED [facility] Comment on above: Result [...] for this test is supported by the [employer] and Human Service's declaration that [...] longer be used). Performed By: #### C GREG ####[facility] [address] [place], [place] [address]Dr. Swathi Reis ER URINE PROFILEon 2 Bilirubin Ql (U) Negative Normal NEGATIVE [facility] Comment on above: Performed By: #### REYNOLD SOSA ####[facility] [address] [place], [place] [address]Dr. Swathi Reis Clarity (U) CLEAR Normal CLEAR [facility] Comment on above: Performed By: #### REYNOLD SOSA ####[facility] [address] [place], [place] [address]Dr. Swathi Reis Color (U) LT. YELLOW Normal YELLOW [facility] Comment on above: Performed By: #### REYNOLD SOSA ####[facility] [address] [place], [place] [address]Dr. Swathi Reis ERUAHD A micrscopic examina tion will be performed if indicated. Normal [facility] Comment on above: Performed By: #### REYNOLD SOSA ####[facility] [address] [place], [place] [address]Dr. Swathi Reis Glucose Ql (U) Negative Normal NEGATIVE [facility] Comment on above: Performed By: #### ROMEO SOSARO ####[facility] [address] [place], [place] [address]Dr. Swathi Reis Hemoglobin Ql (U) TRACE-INTACT Abnormal NEGATIVE [facility] Comment on above: Performed By: #### Amaury WATERS UMICRO ####[facility] [address] [place] [address]Dr. Swathi Reis Ketones Ql (U) Negative Normal NEGATIVE [facility] Comment on above: Performed By: #### Ama[place] WATERS UMICRO ####[facility] [address] [place] [address]Dr. Swathi Reis LEUKOCYTES Negative Normal NEGATIVE [facility] Comment on above: Performed By: #### Ama[place] WATERS UMICRO ####[facility] [address] [place], [place] [address]Dr. Swathi Reis Nitrite Ql (U) Negative Normal NEGATIVE [facility] Comment on above: Performed By: #### Amaury WATERS UMICRO ####[facility] [address] [place], [place] [address]Dr. Swathi Reis pH (U) 6.0 [pH] Normal 5-9 [facility] Comment on above: Performed By: #### Ama[place] WATERS UMICRO ####[facility] [address] [place], [place] [address]Dr. Swathi Reis SPEC GRAVITY 1.010 Normal 1.005-<=1.0 25 [facility] Comment on above: Performed By: #### Ama[place] WATERS UMICRO ####[facility] [address] [place], [place] [address]Dr. Swathi Reis UA PROTEIN TRACE Normal NEGATIVE/ TRACE [facility] Comment on above: Performed By: #### Ama[place] WATERS UMICRO ####[facility] [address] [place] [address]Dr. Swathi Reis UR MICRO IND INDICATED Normal [facility] Comment on above: Performed By: #### Amaury WATERS UMICRO ####[facility] [address] [place], [place] [address]Dr. Swathi Reis Urobilinogen Qn (U) 0.2 {Sánchez'U}/dL Normal 0.2 - 1. 0 [facility] Comment on above: Performed By: #### E REYNOLD WATERS ####[facility] [address] [place] [id number]. Swathi Reis Glucose Poct Glucometerson 0 11-09-2021 Glucose [Mass/Vol] 178 mg/dL Normal [facility] Comment on above: Result Comment: [place] Glucose Reference Range is dependent on time and content of last meal. Glucose of more than 200 mg/dL in a nonstressed, ambulatory subject supports the diagnosis of Diabetes Mellitus. PERFORMED BY: [facility] [address] [address] PATHOLOGIST MANAGER PHILOSOPHY ADRIAN ROBERTSON M.D. Performed By: #### G KIMBERLY #### Point of Care testing , PROF 14(COMP METB)on 022 Albumin [Mass/Vol] 3.5 g/dL Normal 3.5-5.0 [facility] [place] Comment on above: Performed By: #### C ROSALINO, CMP, BNP ####[facility] [address] [place] [id number]. Swathi Reis Albumin/Globulin [Mass ratio] 1.0 {ratio} Normal [facility] Comment on above: Performed By: #### C MADBoston, CMP, BNP ####[facility] [address]mb[address] [place] [id number]. Swathi Reis ALP [Catalytic activity/Vol] 93 U/L Normal 38-126 [facility] Comment on above: Performed By: #### C MADBoston, CMP, BNP ####[facility] Ugssdiwtwo[address] [place] [id number]. Swathi Reis ALT [Catalytic activity/Vol] 22 U/L Normal 9-52 [facility] Comment on above: Performed By: #### C MADM, CMP, BNP ####[facility] [address] [place] [address]Dr. Swathi Reis Anion gap [Moles/Vol] 15.4 mmol/L Normal [facility] Comment on above: Performed By: #### C MADM, CMP, BNP ####[facility] [address]swrc[address] [place] [address]Dr. Swathi Reis AST [Catalytic activity/Vol] 21 U/L Normal 14-36 [facility] Comment on above: Performed By: #### C MADM, CMP, BNP ####[facility] [address]iqextn[address] [place] [address]Dr. Swathi Reis Bilirubin [Mass/Vol] 0.7 mg/dL Normal 0.2-1.3 [facility] Comment on above: Performed By: #### C MADM, CMP, BNP ####[facility] [address] [place] [address]Dr. Swathi Reis Calcium [Mass/Vol] 9.5 mg/dL Normal 8.4-10.2 [facility] Comment on above: Performed By: #### C MADM, CMP, BNP ####[facility] [address]ukvic[address] [place] [address]Dr. Swathi Reis Chloride [Moles/Vol] 99 mmol/L Normal 98-107 [facility] Comment on above: Performed By: #### C MADM, CMP, BNP ####[facility] [address]wochjsg[address] [place] [address]Dr. Swathi Reis CO2 [Moles/Vol] 31.0 mmol/L Critically high 22.0-30.0 [facility] Comment on above: Performed By: #### C MADM, CMP, BNP ####[facility] [address]peso[address] [place] [address]Dr. Swathi Reis Creatinine [Mass/Vol] 1.10 mg/dL Critically high 0.52-1.04 [facility] Comment on above: Performed By: #### C MADM, CMP, BNP ####[facility] [address]cesdk[address] [place] [address]Dr. Swathi Reis EGFR-AF ARGENTINE 58 mL/min/1.73m2 Critically low >=60 [facility] Comment on above: Performed By: #### C MADM, CMP, BNP ####[facility] [address]qdmfxaab[address] [place] [address]Dr. Swathi Reis EGFR-NON AF ARGENTINE 48 mL/min/1.73m2 Critically low >=60 [facility] Comment on above: Performed By: #### C MADM, CMP, BNP ####[facility] [address]zs[address] [place] [address]Dr. Swathi Reis Globulin (S) [Mass/Vol] 3.5 g/dL Normal [facility] Comment on above: Performed By: #### C MADM, CMP, BNP ####[facility] [address]inaqliie[address] [place] [address]Dr. Swathi Reis Glucose [Mass/Vol] 203 mg/dL Critically high 74-106 T [facility] Comment on above: Performed By: #### C MADM, CMP, BNP ####[facility] [address]tvvz[address] [place] [address]Dr. Swathi Reis Potassium [Moles/Vol] 4.4 mmol/L Normal 3.4-5.0 [facility] Comment on above: Performed By: #### C MADM, CMP, BNP ####[facility] [address]so[address]qgcmw[address] [place] [address]Dr. Swathi Reis Protein [Mass/Vol] 7.0 g/dL Normal 6.1-8.2 [facility] Comment on above: Performed By: #### C MADM, CMP, BNP ####[facility] [address]rmwa[address] [place] [address]Dr. Swathi Reis Sodium [Moles/Vol] 141 mmol/L Normal 137-145 [facility] Comment on above: Performed By: #### C MADM, CMP, BNP ####[facility] [address]fwcyul[address] [place] [address]Dr. Swathi Reis Urea nitrogen [Mass/Vol] 21.0 mg/dL Critically high 7.0-17.0 [facility] Comment on above: Performed By: #### C MADM, CMP, BNP ####[facility] [address]uzr[address] [place] [address]Dr. Swathi Reis Urea nitrogen/Creatinine [Mass ratio] 19.1 mg/mg Normal [facility] Comment on above: Performed By: #### C MADM, CMP, BNP ####[facility] Te[address]soo[address] [place] [id number]. Swathi Reis PROTIMEon 11-09-2021 INR Coag (PPP) [Relative time] 1.09 {INR} Normal [facility] Comment on above: Performed By: #### P T, PTT ####[facility] [address] [place], [place] [address]Dr. Swathi Reis INR GUIDELINES SEE BELOW Normal [facility] Comment on above: Result Comment: HARRIETT RED INR: 2.0 - 3.0 CONDITIONS NOT LISTED BELOW 2.5 - 3.5 FOR PROSTHETIC HEART VALVE REPLACEMENT 2.5 - 3.5 RECURRENT THROMBOSIS Performed By: #### P T, PTT ####[facility] [address] [place], [place] [address]Dr. Swathi Reis PT Coag (PPP) [Time] 11.7 s Critically high 9.0-11.6 [facility] Comment on above: Performed By: #### P T, PTT ####[facility] [address] [place], [place] [address]Dr. Swathi Reis INR Coag (PPP) [Relative time] 3.45 {INR} Normal [facility] Comment on above: Performed By: #### P TT, PT ####[facility] [address] [place], [place] [address]Dr. Swathi Reis INR GUIDELINES SEE BELOW Normal [facility] Comment on above: Result Comment: HARRIETT RED INR: 2.0 - 3.0 CONDITIONS NOT LISTED BELOW 2.5 - 3.5 FOR PROSTHETIC HEART VALVE REPLACEMENT 2.5 - 3.5 RECURRENT THROMBOSIS Performed By: #### P TT, PT ####[facility] [address] [place], [place] [address]Dr. Swathi Reis PT Coag (PPP) [Time] 34.4 s Critically high 9.0-11.6 [facility] Comment on above: Performed By: #### P TT, PT ####[facility] [address] [place], [place] [address]Dr. Swathi Reis PTTon 11-09-2021 aPTT Coag (Bld) [Time] 25.9 s Normal 22.3-36.2 [facility] Comment on above: Performed By: #### P T, PTT ####[facility] [address] [place], [place] [address]Dr. Swathi Reis aPTT Coag (Bld) [Time] 39.1 s Critically high 22.3-36.2 [facility] Comment on above: Performed By: #### P TT, PT ####[facility] [address] [place], [place] [address]Dr. Swathi Reis TYPE AND SCREENon 11-09-2021 TYPE AND SCREEN Negative Normal [facility] Comment on above: Performed By: #### T NS ####[facility] [address] [place], [place] [address]Dr. Inessatracy Chato URINE MICROSCOPIC ONLYon BACTERIA NONE SEEN Normal NONE SEEN [facility] Comment on above: Performed By: #### ROMEO SOSARO ####[facility] [address] [place], [place] [address]Dr. Swathi Reis Bacteria identified Cx Nom (U) NOT INDICATED Normal [facility] Comment on above: Performed By: #### ROMEO SOSARO ####[facility] [address] [place], [place] [address]Dr. Swathi Reis CAST NONE SEEN Normal NONE SEEN [facility] Comment on above: Performed By: #### Amaury WATERS UMICRO ####[facility] [address] [place], [place] [address]Dr. Swathi Reis Crystals LM Nom (Urine sed) NONE SEEN Normal NONE SEEN [facility] Comment on above: Performed By: #### Amaury WATERS UMICRO ####[facility] [address] [place], [place] [address]Dr. Swathi Reis Epithelial cells LM Ql (Urine sed) FEW Abnormal NONE SEEN /RARE [facility] Comment on above: Performed By: #### Amaury WATERS UMICRO ####[facility] [address] [place], [place] [address]Dr. Yilan Reis MUCOUS NONE SEEN Normal NONE SEEN [facility] Comment on above: Performed By: #### E RUR, UMICRO ####[facility] [address] [place], [place] [address]Ig. Swathi Reis RBC 2-5 Abnormal 0-2 [facility] Comment on above: Performed By: #### E RUR, UMICRO ####[facility] [address] [place], [place] [address]Ik. Swathi Reis WBC NONE SEEN Normal NONE SEEN [facility] Comment on above: Performed By: #### E RUR, UMICRO ####[facility] [address] [place], [place] [address]Er. Swathi Reis XR CHEST 1 Von 11-09-2021 XR CHEST 1 V Normal [facility] Coding Summary.on 09-14-2020 Coding Summary. CODING DATE: 020 FINAL [place] STATUS: Short-Term Hosp as IP PAYOR: Medicare [...] Revised Date Saved: 09/14/2020 08:26 am Normal [facility] EMS Documentationon 09-12-20 20 EMS Documentation [id number] Normal [facility] ED Clinical Summaryon 2019 ED Clinical Summary (Inserted Image. Ave ble to display) [place] [id number] ED Clinical Summary Person Information Name: ANDREW BARROS [facility] Age: 74 Years : 1945 Sex: Female Language: Yi PCP: Eduardo Sharpe MD Marital Status: Phone: [phone] Visit Id: Visit Reason: Shortness of breath; [...] 09/09/2020 23:10:35 09/09/2020 23:10:35 09/09/2020 23:10:35 ADDRESS: [address] [place] [address] DOC NOTES: Addendum by Koko Pettit DO on September 09, 2020 18:55:26 EST MEDICAL INFORMATION: Prescriptions Given: Medications to Continue with No Changes Other Medications insulin aspart (NovoLog) 8 Units Subcutaneous every day. nitroglycerin nitroglycerin (nitroglycerin 0.4 mg sublingual Tab) 1 Tablets Sublingual every 5 minutes as needed for chest pain. PATIENT EDUCATION INFORMATION: Instructions: Follow up: DIAGNOSIS: COVID-19; Hypoxemia; Pneumonia Normal [facility] ED Patient Education Noteon 09-10-2020 ED Patient Education Note Normal [facility] ED Patient Summaryon 020 ED Patient Summary (Inserted Image. Ave ble to display) [address] [address] Patient Discharge Instructions Person Information Name: ANDREW BARROS Age: 74 Years Arrival Date: 09/09/2020 12:32:39 Discharge Diagnosis: COVID-19; Hypoxemia; Pneumonia Primary Care Physician: Eduardo Sharpe MD Provider Information Primary Provider: Koko Pettit DO Advanced Spooling Supervisor:None The exam and treatment you received in the Emergency Department were for an urgent problem and are not intended as complete care. It is important that you follow up with a doctor, nurse practitioner, or physician?s assistant auto center manager for ongoing care. If your symptoms become [...] opioids can be used to help relieve vgxtroqi-ac-oaylex pain and are often prescribed following a [...] be struggling with addiction, tell your health med care manager and ask for guidance or call [facility] National Helpline at 4-664-919-NCNJ. v Source: [place] Department of Health and Human Services/Center for Disease Control & Prevention [facility] Medications Given: Medication Dose Route levo (more content not included)... Normal [facility] Progress Note-Nurseon 2019 Progress Note-Nurse [facility] at bedside receiving report and preparing patient for transport to psychiatric hospital. pt taken off high flow NC and placed on non rebreather at 15L/min o2 for traansport. Normal [facility] Troponin 9 Hr.on 09-10-2020 Troponin I.cardiac [Mass/Vol] 57.60 pg/mL Abnormal 10.10-27.10 [facility] Comment on above: Result [...] Sensitivity Troponin I Instructions For Use, Uziel [place], April 2018) Performed By: #### 1 [id number] ####[facility] [address] [place] [address] .Manual Abson 09-09-2020 Basophils/Leukocytes Manual cnt (Bld) [Pure # fraction] 0.0 E9/L Normal 0.0-0.2 [facility] Comment on above: Performed By: #### 1 3297985, 5525206, 6235939, 4157022, 42364022, 86105530, 4737288, 77018288, 53192779 #### [facility] Laboratory [address] [place] [id number] Eosinophils/Leukocyt es Manual cnt (Bld) [Pure # fraction] 0.0 E9/L Normal 0.0-0.5 [facility] Comment on above: Performed By: #### 1 0903403, 2338692, 6409030, 5429034, 80003859, 16417294, 0385384, 32917692, 57918169 #### [facility] Laboratory [address] [place] [address] Lymphocytes/Leukocyt es Manual cnt (Bld) [Pure # fraction] 0.4 E9/L Low 1.0-4.0 [facility] Comment on above: Performed By: #### 1 5373364, 5086693, 3582894, 4585516, 82205229, 26794515, 6219088, 78035569, 91781340 #### [facility] Laboratory [address] [place] [address] Monocytes/Leukocytes Manual cnt (Bld) [Pure # fraction] 1.5 E9/L High 0.2-1.0 [facility] Comment on above: Performed By: #### 1 9305993, 5762483, 1898929, 7013556, 31215868, 27686504, 2634106, 89093139, 33468307 #### [facility] [address] [place] [address] Neutrophils/Leukocyt es Auto (Bld) [Pure # fraction] 18.9 E9/L High 2.0-7.5 [facility] Comment on above: Performed By: #### 1 2458054, 6541314, 8243067, 6766740, 74478764, 23322361, 1343984, 67633152, 05623142 #### [facility] [address] [place] [address] BMP 09-09-2020 Creatinine [Mass/Vol] 1.1 mg/dL Normal 0.5-1.3 [facility] Comment on above: Performed By: #### 1 9984212, 0362153, 3638555, 8306090, 94321348, 42272873, 6942890, 19555603, 53008003 #### [facility] [address] [place] [address] Urea nitrogen [Mass/Vol] 26 mg/dL High 5-21 [facility] Comment on above: Performed By: #### 1 5455656, 6543152, 8330418, 3171871, 57398144, 51597339, 6444616, 69643164, 00227216 #### [facility] [address] [place] [address] Urea nitrogen/Creatinine [Mass ratio] 24 No Units High 10-20 [facility] Comment on above: Performed By: #### 1 3102056, 9082128, 0382292, 8997635, 64334542, 08897073, 6823004, 04832480, 17198245 #### [facility] [address] [place] [address] Anion gap [Moles/Vol] 14 mmol/L Normal 6-16 [facility] Comment on above: Performed By: #### 1 8455622, 1265833, 8527325, 9412478, 46444208, 64970865, 6520332, 05811894, 66082043 #### [facility] [address] [place] [address] Calcium [Mass/Vol] 8.7 mg/dL Low 8.9-11.1 [facility] Comment on above: Performed By: #### 1 6186500, 4672016, 0753998, 4623606, 74736745, 78055715, 4851441, 98320022, 11118920 #### [facility] [address] [place] [address] Chloride [Moles/Vol] 104 mmol/L Normal 101-111 [facility] Comment on above: Performed By: #### 1 6975924, 1072098, 1076366, 4808894, 31987818, 53397838, 2951233, 02874141, 26854830 #### [facility] Laboratory [address] [place] [address] CO2 [Moles/Vol] 23 mmol/L Normal 21-31 [facility] Comment on above: Performed By: #### 1 2889763, 5990360, 2318251, 3800894, 63467658, 61722610, 8293282, 50157018, 11537117 #### [facility] [address] [place] [address] Glucose [Mass/Vol] 256 mg/dL High 55-199 [facility] Comment on above: Result Comment: If t his glucose result represents a fasting glucose, interpretation should refer to the following reference range: 55-99 mg/dL Performed By: #### 1 3517840, 3224498, 7493064, 6065461, 81335094, 95617896, 1902410, 07717020, 87596523 #### [facility] [address] [place] [address] Potassium [Moles/Vol] 4.9 mmol/L Normal 3.5-5.3 [facility] Comment on above: Performed By: #### 1 0413442, 2148639, 3028532, 8553924, 75993416, 47515963, 1383997, 54311987, 72627530 #### [facility] [address] [place] [address] Sodium [Moles/Vol] 136 mmol/L Normal 135-145 [facility] Comment on above: Performed By: #### 1 2461517, 9595809, 1246381, 7278588, 12556666, 31317220, 9126994, 13209102, 99962321 #### [facility] [address] [place] [address] BNPon 09-09-2020 Int Ctr BNP Pass Normal [facility] Comment on above: Performed By: #### 1 1136484, 6310958, 8657493, 0005336, 62418560, 60627565, 4962826, 04289593, 60385362 ####[facility] [address] [place] [address] Natriuretic peptide B (Bld) [Mass/Vol] 477 pg/mL High 5-80 [facility] Comment on above: Performed By: #### 1 8212667, 9843392, 2092223, 2822564, 13299943, 68142477, 6775605, 11959301, 52152670 ####[facility] [address] [place] [address] Bld Gas Arton 09-09-2020 a/A Ratio Art 37.50 Normal >=0.80 [facility] Comment on above: Performed By: #### 1 8369511 ####[facility] [address] [place] [address] AaDO2 Art 144.6 High 5.0-15.0 [facility] Comment on above: Performed By: #### 1 1416664 ####[facility] [address] [place] [address] Allens Test Positive Invalid Interpretation Code [facility] Comment on above: Result Comment: [facility] Department of Pulmonary Medicine [address] [place] [address] Performed By: #### 1 3937001 ####[facility] [address] [place] [address] Base excess Calc (Bld) [Moles/Vol] -1.8000 mmol/L Low >=2.8 [facility] Comment on above: Performed By: #### 1 9211930 ####[address] [address] Called By: TSDru Invalid Interpretation Code [facility] Comment on above: Performed By: #### 1 6135449 ####[place] [address] [place] [address] Called To: COLTON Invalid Interpretation Code [facility] Comment on above: Performed By: #### 1 4758499 ####[address] [address] cCa2+ Art 4.93 mg/dL Normal 4.40-5.30 [facility] Comment on above: Performed By: #### 1 5288943 ####[address] [address] cCl- Art 106.0 mmol/L Normal 101.0-111.0 [facility] Comment on above: Performed By: #### 1 7045961 ####[address] [address] cGlu Art 262.0 mg/dL High 55.0-199.0 [facility] Comment on above: Result Comment: 83 Performed By: #### 1 5736356 ####[place] [address] [place] [address] cK+ Art 4.9 mmol/L Normal 3.5-5.3 [facility] Comment on above: Performed By: #### 1 6090867 ####[place] [address] [place] [address] cLac Art 1 mmol/L Low 5-14 [facility] Comment on above: Performed By: #### 1 7234997 ####[address] [address] biotechnician+ Art 140.0 mmol/L Normal 135.0-145.0 [facility] Comment on above: Performed By: #### 1 8965933 ####[address] [address] CO2 (Bld) [Partial pressure] 45.5 mm[Hg] High 35.0-45.0 [facility] Comment on above: Result Comment: 83 Performed By: #### 1 5842589 ####[place] [address] [place] [address] Device NASAL Invalid Interpretation Code [facility] Comment on above: Performed By: #### 1 8107100 ####[address] [address] Drawn by TSB Invalid Interpretation Code [facility] Comment on above: Performed By: #### 1 1205981 ####[address] [address] Dt/Tm Notified 12:54:00 Invalid Interpretation Code [facility] Comment on above: Performed By: #### 1 3293382 ####[address] [address] FCOHb Art 1.1 % Low 1.5-4.9 [facility] Comment on above: Result Comment: 84 Reference range Nonsmoker <1.5% Smoker <5.0% Heavy Smoker <9.0% Performed By: #### 1 9794902 ####[address] [address] FIO2 BG 40.0 Invalid Interpretation Code [facility] Comment on above: Performed By: #### 1 7195962 ####[address] [address] Flow 5.00 Invalid Interpretation Code [facility] Comment on above: Performed By: #### 1 7246307 ####[address] [address] FMetHb Art 0.6 % Normal 0.0-1.9 [facility] Comment on above: Performed By: #### 1 8071188 ####[facility] [address] [place] [address] FO2Hb Art 94.9 % Normal 92.0-100.0 [facility] Comment on above: Performed By: #### 1 2628285 ####[address] [address] HCO3 (Bld) [Moles/Vol] 22.9 mmol/L Normal 22.0-26.0 [facility] Comment on above: Performed By: #### 1 5830536 ####[place] [address] [place] [address] Hemoglobin (Bld) [Mass/Vol] 9.9 g/dL Low 12.0-16.0 [facility] Comment on above: Result Comment: 84 Performed By: #### 1 1099378 ####[address] [address] Oxygen saturation in Blood 96.6 % Normal 95.0-100.0 [facility] Comment on above: Performed By: #### 1 5274225 ####[address] [address] P O2 Arterial 86.6 mmHg Normal 80.0-100.0 [facility] Comment on above: Performed By: #### 1 2971955 ####[address] [address] pH (Bld) 7.333 [pH] Low 7.350-7.450 [facility] Comment on above: Result Comment: 84 Performed By: #### 1 6610211 ####[place] [address] [place] [address] Sample Site RR Invalid Interpretation Code [facility] Comment on above: Performed By: #### 1 7143998 ####[place] [place] [address] Sample Type Arterial Invalid Interpretation Code [facility] Comment on above: Performed By: #### 1 4616816 ####[facility] [address] [place] [address] CBC w/ Auto Diffon 18- 0 Erythrocyte distribution width (RBC) [Ratio] 15.1 % High 10.9-14.2 [facility] Comment on above: Performed By: #### 1 4997473, 7113241, 0813433, 2032792, 70014405, 16433747, 4395384, 27760320, 66075974 #### [facility] Laboratory [address] [place] [address] Hematocrit (Bld) [Volume fraction] 30.7 % Low 34.0-46.0 [facility] Comment on above: Performed By: #### 1 6931133, 7581236, 4287728, 8819094, 34668064, 04000987, 2593924, 02967903, 91525450 #### [facility] Laboratory [address] [place] [address] Hemoglobin (Bld) [Mass/Vol] 9.9 g/dL Low 12.0-16.0 [facility] Comment on above: Performed By: #### 1 1879444, 4675935, 8829959, 6070077, 98712546, 72089874, [id number], [id number], [id number] #### [facility] [address] [place] [address] MCH (RBC) [Entitic mass] 29.7 pg Normal 27.0-34.0 [facility] Comment on above: Performed By: #### 1 [id number], 9381377, 0943830, 4757695, 67171498, 43797034, 1964420, 97555422, 85710101 #### [facility] [address] [place] [address] MCHC (RBC) [Mass/Vol] 32.2 g/dL Normal 31.4-36.0 [facility] Comment on above: Performed By: #### 1 8345611, 7089707, 4209201, 7185473, 67690881, 55998180, 4769934, 42688096, 07196194 #### [facility] [address] [place] [address] MCV (RBC) [Entitic vol] 92.3 fL Normal 80.0-100.0 [facility] Comment on above: Performed By: #### 1 9083678, 3545975, 9591204, 5999301, 48520619, 20075636, 5930283, 85960803, 00405136 #### [facility] [address] [place] [address] Platelet mean volume (Bld) [Entitic vol] 8.4 fL Normal 6.4-10.8 [facility] Comment on above: Performed By: #### 1 3936117, 5601221, 2336545, 4777521, 87712221, 50829704, 4963897, 27904014, 87251321 #### [facility] [address] [place] [address] Platelets (Bld) [#/Vol] 243.0 E9/L Normal 150.0-500.0 [facility] Comment on above: Performed By: #### 1 0957451, 0117790, 3726354, 0913687, 56674396, 25142210, 8685014, 59497769, 72381058 #### [facility] [address] [place] [address] RBC (Bld) [#/Vol] 3.3 E12/L Low 4.3-5.9 [facility] Comment on above: Performed By: #### 1 8746445, 2910317, 1289881, 7181093, 11631552, 64903525, 0215915, 00220417, 40938401 #### [facility] [address] [place] [address] WBC corrected for nucl RBC Auto (Bld) [#/Vol] 21.7 E9/L High 4.0-11.0 [facility] Comment on above: Performed By: #### 1 8034175, 9189277, 2718833, 1437376, 05169763, 05232924, 5030531, 51043109, 05660564 #### [facility] [address] [place] [address] CTA Cheston 09-09-2020 CTA Chest Exam Date/Time: [...] 370 Contrast amount in ml's: 66 Normal [facility] Consent for Treatmenton 08-23 Consent for Treatment [id number]:[id number] Normal [facility] D-Dimeron 09-09-2020 Fibrin D-dimer FEU (PPP) [Mass/Vol] 1480 ng/mL Abnormal 215-500 [facility] Comment on above: Result [...] infections Liver cirrhosis Performed By: #### 1 8989361, 3968402, 3854571, 4040575, 15444977, 06512198, 0587206, 10622622, 58745676 ####[facility] [address] [place] [address] ED Note-Physicianon 09-09-20 ED Note-Physician Basic Information Time Seen: Colton Koko 09/09/2020 12:35 Chief Complaint Sent from [facility] for increased SOB and low oxygen level. Covid positive about 2 weeks ago per EMS History of Present Illness 74 female presents to the emergency department with shortness of breath. Patient presents by EMS from the senior living with Covid positive testing about 2 weeks [...] does not normally wear oxygen at the senior living. No other aggravating or relieving factors no other associated symptoms no other prior treatments or complaints. Family: Reviewed and noncontributory Social: lives at senior living Review of systems negative unless otherwise specified [...] (09/09/20 13 (more content not included)... Normal [facility] Comment on above: Result Comment: Elec tronically Signed By: Koko Pettit DO\.br\Date and Time Signed: 09/09/20 18:56 EST Lactic Acidon 09-09-2020 Lactate [Mass/Vol] 1.0 mmol/L Normal 0.5-2.2 [facility] Comment on above: Performed By: #### 2 [id number] ####[facility] [address] [place] [address] Manual Diffon 09-09-2020 Band form neutrophils/100 WBC (Bld) 6 % Normal 0-10 [facility] Comment on above: Order Comment: Order Added by Discern Expert. Performed By: #### 1 8765594, 2545637, 2409298, 0532416, 61815093, 30062188, 3920057, 10914195, 37529184 #### [facility] [address] [place] [address] Basophils/100 WBC (Bld) 0 % Normal 0-2 [facility] Comment on above: Order Comment: Order Added by Discern Expert. Performed By: #### 1 8697700, 0634296, 0339406, 5956467, 20922531, 97086781, 9077074, 28105634, 33723289 #### [facility] [address] [place] [address] Eosinophils/100 WBC (Bld) 0 % Normal 0-8 [facility] Comment on above: Order Comment: Order Added by Discern Expert. Performed By: #### 1 6221314, 8407403, 6910977, 9853972, 52229356, 19297637, 2793128, 43821790, 99466536 #### [facility] [address] [place] [address] Lymphocytes/100 WBC (Bld) 2 % Low 14-50 [facility] Comment on above: Order Comment: Order Added by Discern Expert. Performed By: #### 1 2970439, 7078456, 6171882, 9262926, 80296804, 26369540, 1003989, 31953194, 61344086 #### [facility] [address] [place] [address] Metamyelocytes/Leuko cytes Manual cnt (Bld) [Pure # fraction] 2 % High <=0 [facility] Comment on above: Order Comment: Order Added by Discern Expert. Performed By: #### 1 8772637, 5467081, 4594391, 5768223, 10677469, 72137384, 3937028, 91740986, 06535228 #### [facility] [address] [place] [address] Monocytes/100 WBC (Bld) 7 % Normal 4-14 [facility] Comment on above: Order Comment: Order Added by Discern Expert. Performed By: #### 1 7801359, 8241177, 3906719, 5510103, 94981127, 41853556, 1669576, 00423579, 08529303 #### [facility] [address] [place] [address] Morphology Elie (Bld) [Interp] Normal Normal [facility] Comment on above: Order Comment: Order Added by Discern Expert. Performed By: #### 1 2945566, 6126951, 6089521, 7202320, 47044757, 13282335, 7349428, 24558249, 10674601 #### [facility] [address] [place] [address] Myelocytes/100 WBC (Bld) 2 % High <=0 [facility] Comment on above: Order Comment: Order Added by Discern Expert. Performed By: #### 1 5705938, 2236631, 5600376, 9505748, 05815295, 47095479, 9053563, 45997170, 22260566 #### [facility] [address] [place] [address] Nucleated cells (Bld) [#/Vol] 1 High <=0 [facility] Comment on above: Order Comment: Order Added by Discern Expert. Performed By: #### 1 4667606, 3286087, 4613100, 1892587, 20707881, 89296742, 9105792, 81141727, 76779945 #### [facility] [address] [place] [address] Segmented neutrophils/100 WBC (Bld) 81 % High 36-75 [facility] Comment on above: Order Comment: Order Added by Discern Expert. Performed By: #### 1 5912502, 3632384, 2686425, 9167008, 03374298, 69983085, 6336239, 72469907, 56744529 #### [facility] [address] [place] [address] Variant lymphocytes LM Ql (Bld) 0 % Invalid Interpretation Code [facility] Comment on above: Order Comment: Order Added by Discern Expert. Performed By: #### 1 6493489, 0307753, 2172018, 9808394, 56580722, 69985969, 2870019, 76926895, 83810169 #### [facility] [address] [place] [address] PTon 09-09-2020 INR Coag (PPP) [Relative time] 1.9 {INR} Invalid Interpretation Code [facility] Comment on above: Result Comment: INR results are specifically intended to assess patients stabilized on long-term Anticoagulation therapy suggested INR?s ?Less Intensive Anticoagulation? 2.0 ? 3.0 Conventional Range 3.0 ? 4.5 Performed By: #### 2 613309, 8388185 ####[facility] [address] [place] [address] PT Coag (PPP) [Time] 22.8 second(s) High 10.2-12.9 [facility] Comment on above: Performed By: #### 2 746434, 4827776 ####[facility] [address] [place] [address] PT & PTTon 09-09-2020 aPTT Coag (PPP) [Time] 31.7 second(s) Normal 25.1-36.5 [facility] Comment on above: Result Comment: Hepa rin therapeutic range (represented by Anti-Factor Xa activity of 0.2 - 0.4 U/mL) corresponds to PTT of 56.6 - 109.0 sec. Performed By: #### 1 7129722, 3078101, 5359472, 8876745, 06650180, 61908505, 4364081, 07847748, 85550057 ####[facility] [address] [place] [address] INR Coag (PPP) [Relative time] 2.0 {INR} Invalid Interpretation Code [facility] Comment on above: Result Comment: INR results are specifically intended to assess patients stabilized on long-term Anticoagulation therapy suggested INR?s ?Less Intensive Anticoagulation? 2.0 ? 3.0 Conventional Range 3.0 ? 4.5 Performed By: #### 1 1025763, 7465716, 7849834, 4623295, 17449530, 98118454, 9384488, 67949062, 25023358 ####[facility] [address] [place] [address] PT Coag (PPP) [Time] 23.6 second(s) High 10.2-12.9 [facility] Comment on above: Performed By: #### 1 1423720, 7235517, 1718416, 5504885, 40254592, 05825530, 4717628, 72499645, 97930737 ####[facility] [address] [place] [address] PTTon 09-09-2020 aPTT Coag (PPP) [Time] 30.4 second(s) Normal 25.1-36.5 [facility] Comment on above: Result Comment: Hepa rin therapeutic range (represented by Anti-Factor Xa activity of 0.2 - 0.4 U/mL) corresponds to PTT of 56.6 - 109.0 sec. Performed By: #### 2 263387, 1145977 ####[facility] [address] [place] [address] Progress Note-Nurseon 2019 Progress Note-Nurse Pt care report provi ded to JARRET Hirsch. Pts family member, Rosenda updated on pt status. Presently awaiting transport to [facility] via [facility], [place] of 2200hrs Normal [facility] Progress Note-Nurse Pt care report alan d to [facility] [employer] Zach, advised of family contact information and will send SNF paperwork with patient. Normal [facility] Progress Note-Nurse Pts daughter, Rosenda updated on pt transfer and condition. Rosenda: [phone] Pts family sts pt is under extreme stress, pts spouse yesterday due to COVID infection. Normal [facility] Progress Note-Nurse Pts son updated on p t condition, presently awating updated order set. Pt returns from CT, RT at bedside for high flow o2 placement. Normal [facility] Progress Note-Nurse IV ABx completed at this time, pt to CT Normal [facility] Progress Note-Nurse Pt c/o increased dys pnea, spo2 reading 89% oxygen increased to 6lpm, nasal cannula. made aware, requests RT for high flow oxygen therapy Normal [facility] Progress Note-Nurse Advised per CT that IV no longer infuses/flushes, await IV access at this time via US. Normal [facility] Progress Note-Nurse Pt to imaging at thi s time. Normal [facility] Troponin 0 Hr.on 09-09-2020 Troponin I.cardiac [Mass/Vol] 10.10 pg/mL Normal 10.10-27.10 [facility] Comment on above: Result Comment: The 95% CI (Confidence Interval) PPV (Positive Predictive Value) for myocardial infarction in females is 38 pg/mL, in males 51 pg/mL. The results should be used in conjunction with clinical conditions of myocardial infarction. (Access High Sensitivity Troponin I Instructions For Use, Uziel Umair, April 2018) Performed By: #### 1 [id number], 8833369, 4183399, 5831051, 46653510, 24793310, 2055267, 62565958, 90663773 ####[facility] [address] [place] [address] Troponin 3 Hr.on 09-09-2020 Troponin I.cardiac [Mass/Vol] 20.20 pg/mL Normal 10.10-27.10 [facility] Comment on above: Result Comment: The 95% CI (Confidence Interval) PPV (Positive Predictive Value) for myocardial infarction in females is 38 pg/mL, in males 51 pg/mL. The results should be used in conjunction with clinical conditions of myocardial infarction. (Access High Sensitivity Troponin I Instructions For Use, [employer], April 2018) Performed By: #### 1 [id number] ####[facility] [address] [place] [address] Troponin 6 Hr.on 09-09-2020 Troponin I.cardiac [Mass/Vol] 37.60 pg/mL High 10.10-27.10 [facility] Comment on above: Result Comment: The 95% CI (Confidence Interval) PPV (Positive Predictive Value) for myocardial infarction in females is 38 pg/mL, in males 51 pg/mL. The results should be used in conjunction with clinical conditions of myocardial infarction. (Access High Sensitivity Troponin I Instructions For Use, [employer], April 2018) Performed By: #### 1 [id number] #### [facility] [address] [place] [address] XR Chest Single Viewon 09-09 XR Chest [...] DO Transcribed by: MATTHEW Technologist: JAI Normal [facility] eGFRon 09-09-2020 GFR/1.73 sq M.predicted among blacks MDRD (S/P/Bld) [Vol rate/Area] 59 mL/min/1.73 m2 Normal >=59 [facility] Comment on above: Order Comment: Order added by Discern Expert. Result Comment: eGFR is race adjusted. AA=. Performed By: #### 1 3586126, 9243497, 2500872, 1570299, 35283833, 32587653, 1391740, 87829102, 88253401 #### [facility] [address] [place] [address] GFR/1.73 sq M.predicted among non-blacks MDRD (S/P/Bld) [Vol rate/Area] 48 mL/min/1.73 m2 Low >=59 [facility] Comment on above: Order Comment: Order added by Discern Expert. Result Comment: Vocational Adviser les kidney disease could be indicated at eGFR's of less than 60 mL/min/1.73m2. Kidney failure is indicated at less than 15 mL/min/1.73m2. Performed By: #### 1 9750563, 9854423, 9055187, 2120249, 30267113, 76169188, 7907404, 74707203, 18138826 #### [facility] [address] [place] [address] Vital Signs Date Time Vital Sign Value Performing Clinician Facility 05-20-2023 15:10040 Body height 162.6 cm Sandeep Lenz MD Work Phone: [facility] 05-20-2023 15:10-040 Body temperature 97.81 [degF] Sandeep Lenz MD Work Phone: [facility] 05-20-2023 15:10040 Body weight 58.88 kg Sandeep Lenz MD Work Phone: [facility] 05-20-2023 15:10-040 Diastolic blood pressure 72 mm[Hg] Sandeep Lenz MD Work Phone: [facility] 05-20-2023 15:10-0400 Heart rate 68 /min Sandeep Lenz MD Work Phone: [facility] 05-20-2023 15:10-0400 Respiratory rate 16 /min Sandeep Lenz MD Work Phone: [facility] 05-20-2023 15:10-0400 SaO2% (BldA) [Mass fraction] 99 % Sandeep Lenz MD Work Phone: [facility] 05-20-2023 15:10-0400 Systolic blood pressure 168 mm[Hg] Sandeep Lenz MD Work Phone: [facility] 04-30-2023 14:20-0400 Body temperature 97.59 [degF] Chair Marcos Work Phone: [facility] 04-30-2023 14:20-0400 Diastolic blood pressure 72 mm[Hg] Chair Stanislaus Work Phone: [facility] 04-30-2023 14:20-0400 Heart rate 64 /min Chair Marcos Work Phone: [facility] 04-30-2023 14:20-0400 Respiratory rate 16 /min Chair Marcos Work Phone: [facility] 04-30-2023 14:20-0400 SaO2% (BldA) [Mass fraction] 98 % Chair Stanislaus Work Phone: [facility] 04-30-2023 14:20-0400 Systolic blood pressure 147 mm[Hg] Chair Stanislaus Work Phone: [facility] 04-29-2023 15:21-0400 Body height 162.6 cm Sandeep Lenz MD Work Phone: [facility] 04-29-2023 15:21-0400 Body temperature 97 [degF] Sandeep Lenz MD Work Phone: [facility] 04-29-2023 15:21-0400 Body weight 58.24 kg Sandeep Lenz MD Work Phone: [facility] 04-29-2023 15:21-0400 Diastolic blood pressure 66 mm[Hg] Sandeep Lenz MD Work Phone: [facility] 04-29-2023 15:21-0400 Heart rate 66 /min Sandeep Lenz MD Work Phone: [facility] 04-29-2023 15:21-0400 Respiratory rate 16 /min Sandeep Lenz MD Work Phone: [facility] 04-29-2023 15:21-0400 SaO2% (BldA) [Mass fraction] 96 % Sandeep Lenz MD Work Phone: [facility] 04-29-2023 15:21-0400 Systolic blood pressure 153 mm[Hg] Sandeep Lenz MD Work Phone: [facility] 05-19-2022 11:30-0400 Diastolic blood pressure 80 [...] 162.6 cm Sandeep Lenz MD Work Phone: [facility] 01-08-2022 13:03-0400 Body temperature 97.39 [degF] Sandeep Lenz MD Work Phone: [facility] 01-08-2022 13:03-0400 Body weight 64.23 kg Sandeep Lenz MD Work Phone: [facility] 01-08-2022 13:03-0400 Diastolic blood pressure 69 mm[Hg] Sandeep Lenz MD Work Phone: [facility] 01-08-2022 13:03-0400 Heart rate 68 /min Sandeep Lenz MD Work Phone: [facility] 01-08-2022 13:03-0400 Respiratory rate 16 /min Sandeep Lenz MD Work Phone: [facility] 01-08-2022 13:03-0400 SaO2% (BldA) [Mass fraction] 97 % Sandeep Lenz MD Work Phone: [facility] 01-08-2022 13:03-0400 Systolic blood pressure 150 mm[Hg] Sandeep Lenz MD Work Phone: [facility] 11-11-2021 13:00-0500 Diastolic blood pressure 69 mm[Hg] MD Eduardo Sharpe Work Phone: [facility] 11-11-2021 13:00-0500 Heart rate 65 /min MD Eduardo Sharpe Work Phone: [facility] 11-11-2021 13:00-0500 Respiratory rate 16 /min MD Eduardo Sharpe Work Phone: [facility] 11-11-2021 13:00-0500 SaO2% (BldA) [Mass fraction] 96 % MD Eduardo Sharpe Work Phone: [facility] 11-11-2021 13:00-0500 Systolic blood pressure 129 mm[Hg] MD Eduardo Sharpe Work Phone: [facility] 11-11-2021 12:00-0500 Body temperature 98 [degF] MD Eduardo Sharpe Work Phone: [facility] 11-11-2021 06:00-0500 Body weight 63 kg MD Eduardo Sharpe Work Phone: [facility] 11-10-2021 12:59-0500 Body height 163.83 cm MD Eduardo Sharpe Work Phone: [facility] 11-09-2021 18:45-0500 Body mass index (BMI) [Ratio] 23.8 kg/m2 MD Eduardo Sharpe Work Phone: [facility] Encounters Encounter Date Encounter Type Care Provider Facility Start: 10-31-2023 Bamboo flowsheet Mark Galindo hler DO Work Phone: [facility] Start: 10-31-2023 Bamboo flowsheet Mark Galindo hler DO Work Phone: [facility] Start: 10-31-2023 End: 10-31-2023 ambulatory MARK ISABEL Not Available Start: 10-16-2023 End: 10-16-2023 ambulatory [facility] Start: 08-19-2023 End: 08-19-2023 ambulatory EDUARDO SHARPE Facility:[facility] Start: 08-19-2023 Telephone encounter Clemente Hull Hematology/Oncology Comment on above: Results Start: 07-02-2023 End: 07-02-2023 ambulatory EDUARDO SHARPE Facility:[facility] Start: 06-05-2023 End: 06-05-2023 ambulatory Sadimaureen Stevensonpritesh Other [employer] [facility] [employer] Other Start: 06-05-2023 Telephone encounter Bala Hartman [facility] Start: 05-21-2023 Telephone encounter Clemente Hull Hematology/Oncology Comment on above: Results Start: 05-20-2023 End: 05-20-2023 ambulatory EDUARDO SHAREP Facility:[facility] Start: 05-20-2023 End: 05-20-2023 Office outpatient visit 25 minutes Sandeep Lenz MD Work Phone: Hematology/Oncology Comment on above: Hypercalcemia (Prima ry Dx); Malignant neoplasm of upper-outer quadrant of left breast in female, estrogen receptor positive (HCC); Stage 3 chronic kidney disease, unspecified whether stage 3a or 3b CKD (HCC) Start: 05-20-2023 Telephone encounter [facility]an [facility] Comment on above: Referral Information (Nephrology) Start: 05-09-2023 Social Work Aleida Vargas [employer] Hematolo gy/Oncology Start: 05-07-2023 Refill Sandeep aragon MD Work Phone: Hematology/Oncology Comment on above: Refill Request Start: 04-30-2023 End: 04-30-2023 Infusion Center Chair Nya Rodríguez Work Phone: Hematology/Oncology Comment on above: Hypercalcemia (Prima ry Dx); Other specified menopausal and perimenopausal disorders; Malignant neoplasm of upper-outer quadrant of left breast in female, estrogen receptor positive (HCC) Start: 04-29-2023 End: 04-29-2023 ambulatory EDUARDO SHARPE Facility:[facility] Start: 04-29-2023 End: 04-29-2023 Office outpatient [...] CKD (HCC) Start: 04-01-2023 End: 04-01-2023 ambulatory [facility] Start: 01-14-2023 End: 01-14-2023 ambulatory [facility] Start: 08-23-2022 End: 09-23-2022 ambulatory [...] Start: 05-19-2022 End: 05-19-2022 ambulatory [facility] Triage, Treat and Transport Start: 05-19-2022 End: 05-19-2022 Emergency department patient visit [facility] Emergency Triage, Treat and Transport Comment on above: Arrived Start: 05-09-2022 End: 05-10-2022 ambulatory EDUARDO SHARPE Facility:[facility] Start: 05-07-2022 End: 05-08-2022 ambulatory [...] encounter procedure Sandeep Lenz MD Work Phone: [place] Comment on above: Malignant neoplasm o f upper-outer quadrant of left breast in female, estrogen receptor positive (HCC) (Primary Dx) Start: 01-05-2022 End: 01-06-2022 ambulatory SANDEEP LENZ Facility:[facility] Start: 12-27-2021 End: 12-27-2021 Patient encounter procedure MD Eduardo Sharpe Work Phone: [facility] [place] Start: 12-22-2021 End: 01-19-[address] EDUARDO SHARPE Facility:[facility] Start: 11-30-2021 End: 11-30-2021 ambulatory Brayden Hernandez Other [facility] [employer] Other Start: 11-30-2021 Office outpatient vi sit 15 minutes Brayden Hernandez [facility] Start: 11-21-2021 End: 12-21-2021 ambulatory SHAIKH Barbara AGUIAR Facility:[facility] Start: 11-17-2021 End: 11-17-2021 Patient encounter procedure MD Eduardo Sharpe Work Phone: [facility] [place] Start: 11-09-2021 End: 11-11-2021 Evaluation and management of inpatient MD Eduardo Sharpe Work Phone: [facility] Start: 11-09-2021 End: 11-09-2021 ambulatory [...] Detail Author Start: 08-19-2026 Diabetes Screening Diabetes Screenin [facility] Start: 05-20-2026 DIABETES SCREEN DIABETES SCREEN [facility] Start: 05-20-2026 Diabetes Screening Diabetes Screenin [facility] Start: 04-30-2026 DIABETES SCREEN DIABETES SCREEN [facility] Start: 04-29-2026 DIABETES SCREEN DIABETES SCREEN [facility] Start: 01-08-2025 DIABETES SCREEN DIABETES SCREEN [facility] Start: 08-19-2024 Hemoglobin/Hematocrit Hemoglobin/Hem [facility] [place] Start: 08-19-2024 Serum Creatinine Serum Creatinine Cl [facility] Start: 05-20-2024 HEMOGLOBIN/HEMATOCRIT HEMOGLOBIN/HEM [facility] Start: 05-20-2024 SERUM CREATININE SERUM CREATININE Cl [facility] Start: 04-30-2024 HEMOGLOBIN/HEMATOCRIT HEMOGLOBIN/HEM ATOCRIT [facility] Start: 04-30-2024 SERUM CREATININE SERUM CREATININE Cl [facility] Start: 11-28-2023 End: 11-28-2023 Patient encounter procedure 11/28/2023 8:10 AM EST Procedure Visit [facility] Mark Isabel, DO [address] [place] [address] [facility] Start: 05-24-2023 Influenza vaccination [facility] Start: 04-29-2023 End: 06-29-2023 Parathyrin related protein [Moles/volume] in Serum or Plasma PTH RELATED PEPTIDE Lab Routine Malignant neoplasm of upper-outer quadrant of left breast in female, estrogen receptor positive (HCC) Hypercalcemia Expected: 04/29/2023, Expires: 06/29/2023 [facility] Work Phone: Comment on above: Expected: 04/29/2023 , Expires: 06/29/2023 Start: 04-29-2023 End: 06-29-2023 PTH, INTACT (WITHOUT CALCIUM) PTH, INTACT (WITHOUT CALCIUM) Lab Routine Malignant neoplasm of upper-outer quadrant of left breast in female, estrogen receptor positive (HCC) Hypercalcemia Expected: 04/29/2023, Expires: 06/29/2023 [facility] Work Phone: Comment on above: Expected: 04/29/2023 , Expires: 06/29/2023 Start: 09-23-2022 ADVANCE DIRECTIVE DISCUSSION ADVANCE DIRECTIVE DISCUSSION [facility] Start: 09-23-2022 DEPRESSION ASSESSMENT DEPRESSION ASS ESSMENT [facility] Start: 07-09-2022 End: 09-08-2022 25-hydroxyvitamin D3 [Mass/volume] in Serum or Plasma VITAMIN D 25 HYDROXY Lab Routine Malignant neoplasm of upper-outer quadrant of left breast in female, estrogen receptor positive (HCC) Encounter for screening for osteoporosis Hypercalcemia Expected: 07/09/2022 (Approximate), Expires: 09/08/2022 [facility] Work Phone: Comment on above: Expected: 07/09/2022 (Approximate), Expires: 09/08/2022 Start: 07-09-2022 End: 09-08-2022 Calcitriol [Mass/volume] in Serum or Plasma VITAMIN D1 25-DIHYDR Lab Routine Malignant neoplasm of upper-outer quadrant of left breast in female, estrogen receptor positive (HCC) Encounter for screening for osteoporosis Expected: 07/09/2022 (Approximate), Expires: 09/08/2022 [facility] Work Phone: Comment on above: Expected: 07/09/2022 (Approximate), Expires: 09/08/2022 Start: 07-09-2022 End: 06-30-2023 CBC W Auto Differential panel - Blood CBC + DIFF Lab Routine Malignant neoplasm of upper-outer quadrant of left breast in female, estrogen receptor positive (HCC) Encounter for screening for osteoporosis Expected: 07/09/2022 (Approximate), Expires: 06/30/2023 [facility] Work Phone: Comment on above: Expected: 07/09/2022 (Approximate), Expires: 06/30/2023 Start: 07-09-2022 End: 06-30-2023 Comprehensive metabolic 2000 panel - Serum or Plasma COMP METABOLIC PANEL Lab Routine Malignant neoplasm of upper-outer quadrant of left breast in female, estrogen receptor positive (HCC) Encounter for screening for osteoporosis Expected: 07/09/2022 (Approximate), Expires: 06/30/2023 [facility] Work Phone: Comment on above: Expected: 07/09/2022 (Approximate), Expires: 06/30/2023 Start: 06-23-2022 Influenza vaccination Influenza Vacc ine (#1) [facility] Start: 05-24-2022 Influenza vaccination INFLUENZA (#1) [facility] Start: 09-23-2021 ADVANCE DIRECTIVE DISCUSSION ADVANCE DIRECTIVE DISCUSSION [facility] Start: 09-23-2021 DEPRESSION ASSESSMENT DEPRESSION ASS ESSMENT [facility] Start: 03-10-2021 Adult depression screening assessment DEPRESSION SCREENING [facility] Start: 06-17-2019 Pneumococcal Vaccine : 65+ (2 - PPSV23 or PCV20) Pneumococcal Vaccine: 65+ (2 - PPSV23 or PCV20) [facility] Start: 06-17-2019 PNEUMOCOCCAL: 65+ (2 - PPSV23 if available, else PCV20) PNEUMOCOCCAL: 65+ (2 - PPSV23 if available, else PCV20) [facility] Start: 06-17-2019 PNEUMOCOCCAL: 65+ (2 - PPSV23 or PCV20) PNEUMOCOCCAL: 65+ (2 - PPSV23 or PCV20) [facility] Start: 2009 BONE DENSITY BONE DENSITY [facility] Start: 2009 Bone Density Screening Bone Density Screening [facility] Start: 2009 Pneumococcal vaccination Pneumococcal Vaccine(s) (65+ yrs) (1 - PCV) [facility] Start: 2009 PNEUMOVAX AGE 65 AND OVER WITH 5YR LOOKBACK (#1) PNEUMOVAX AGE 65 AND OVER WITH 5YR LOOKBACK (#1) [facility] Start: 2009 Screening for osteoporosis Bone Densitometry [facility] Start: 2004 RSV Vaccine (1 - 1-d ose 60+ series) RSV Vaccine (1 - 1-dose 60+ series) [facility] Start: 1994 Shingles (RZV) Vacci ne (1 of 2) Shingles (RZV) Vaccine (1 of 2) [facility] Start: 1994 SHINGRIX VACCINE (1 of 2) SHINGRIX VACCINE (1 of 2) [facility] Start: 1963 Urine microalbumin profile [facility] Start: 1962 ANNUAL PCP TEAM RIGHT OF WAY SUPERVISOR LES DISEASE VISIT ANNUAL PCP TEAM CHRONIC DISEASE VISIT [facility] Start: 1962 HEPATITIS C SCREENING HEPATITIS C SC DNO [facility] Start: 1962 Hepatitis C screening Hepatitis C An tibody [facility] Start: 1962 Tetanus + diphtheria + acellular pertussis vaccine (product) Tdap Booster [facility] Start: 1956 COVID-19 VACCINE (1) COVID-19 VACCIN E (1) [facility] Start: 04-09-1945 COVID-19 Vaccine (#1) COVID-19 Vacci ne (#1) [facility] End: 05-28-2024 Bone &/joint imaging whole body NM BONE WHOLE BODY Radiology Routine Malignant neoplasm of breast in female, estrogen receptor positive, unspecified laterality, unspecified site of breast (HCC) 1 Occurrences starting 04/29/2023 until 05/28/2024 [facility] Work Phone: Comment on above: 1 [...] for 9 Occurrences starting 05/20/2023 until 05/19/2024 [facility] Work Phone: Comment on above: Every [...] Occurrences starting 05/20/2023 until 05/19/2024, 1 completed [facility] Work Phone: Comment on above: Every [...] Occurrences starting 05/20/2023 until 05/19/2024, 1 completed [facility] Work Phone: Comment on above: Every [...] Occurrences starting 05/20/2023 until 05/19/2024, 1 completed [facility] Work Phone: Comment on above: Every 6 weeks for 9 Occurrences starting 05/20/2023 until 05/19/2024, 1 completed Parathyrin related protein [Moles/volume] in Serum or Plasma PTH RELATED PEPTIDE Lab Routine Malignant neoplasm of upper-outer quadrant of left breast in female, estrogen receptor positive (HCC) Hypercalcemia 04/30/2023 3:55 PM EDT [facility] Work Phone: Patient Education Heart Healthy Diet [facility] Work Phone: [facility] referral [facility] Work Phone: [facility] Immunizations Immunization Date Immunization Notes Care Provider Fa cili 07-11-2022 influenza, high dose seasonal, preservative-free Clemente Srivastava RN [facility] 07-11-2022 pneumococcal polysaccharide vaccine, 23 valent Clemente Srivastava RN [facility] 07-11-2022 influenza virus vacc ine, unspecified formulation Sandeep Lenz MD Work Phone: [facility] 07-07-2021 influenza, high-dose , quadrivalent vaccine (FLUZONE HIGH DOSE QUADRIVALENT) Sandeep Lenz MD Work Phone: [facility] 07-07-2021 unknown vaccine or i mmune globulin Clemente Srivastava RN [facility] 06-12-2021 influenza, high dose seasonal, preservative-free Clemente Srivastava RN [facility] 06-22-2020 influenza, high dose seasonal, preservative-free Sandeep Lenz MD Work Phone: [facility] 06-15-2020 Seasonal trivalent influenza vaccine, adjuvanted, preservative free Sandeep Lenz MD Work Phone: [facility] 06-17-2018 influenza, high dose seasonal, preservative-free Sandeep Lenz MD Work Phone: [facility] 06-17-2018 pneumococcal conjuga te vaccine, 13 valent Sandeep Lenz MD Work Phone: [facility] 07-09-2017 influenza, high dose seasonal, preservative-free Sandeep Lenz MD Work Phone: [facility] 07-09-2017 pneumococcal conjuga te vaccine, 13 valamalia Lenz MD Work Phone: [facility] Payers Date Payer Category Payer Unknown MEDICA RE SUPPLEMENT [id number] 2014-Present [phone] [address] [address] [place] [address] Indemnity [id number] 2014 Unknown [id number] 2009 Medicare MEDICARE MEDICAR E A AND B [id number] 2009-Present [phone] [address] [address] [place] [address] Medicare [id number] 2009 Medicare [id number] [id number] 1959 Medicare [id number] 1959 Unknown [id number] 1959 Unknown [id number] 1944 Unknown [id number] 2.16.840.1.004476.3.579.2.647 1944 Unknown [id number] 2.16.840.1.046256.3.579.2.732 1944 Unknown [id number] 2.16.840.1.799684.3.579.2.593 1944 Unknown [id number] 2.16.840.1.977631.3.579.2.593 1944 Unknown [id number] 2.16.840.1.084242.3.579.2.593 1944 Unknown [id number] 2.16.840.1.722570.3.579.2.593 1944 Unknown [id number] 2.16.840.1.145513.3.579.2.593 1944 Unknown [id number] 2.16.840.1.226169.3.579.2.593 1944 Unknown [id number] 2.16.840.1.574206.3.579.2.593 1944 Unknown [id number] 2.16.840.1.861168.3.579.2.593 1944 Unknown [id number] 2.16.840.1.681770.3.579.2.593 1944 Unknown [id number] 2.16.840.1.709687.3.579.2.593 1944 Unknown [id number] 2.16.840.1.451025.3.579.2.593 1944 Unknown [id number] 2.16.840.1.388195.3.579.2.593 1944 Unknown [id number] 2.16.840.1.066115.3.579.2.593 1944 Unknown [id number] 2.16.840.1.762939.3.579.2.593 1944 Unknown [id number] 2.16.840.1.895536.3.579.2.593 1944 Unknown [id number] 2.16.840.1.101037.3.579.2.593 1944 Unknown [id number] 2.16.840.1.432865.3.579.2.593 1944 Unknown [id number] 2.16.840.1.965596.3.579.2.593 1944 Unknown [id number] 2.16.840.1.942212.3.579.2.593 1944 Unknown [id number] 2.16.840.1.546568.3.579.2.593 1944 Unknown [id number] 2.16.840.1.135033.3.579.2.593 1944 Unknown [id number] 2.16.840.1.907448.3.579.2.593 1944 Unknown [id number] 2.16.840.1.141181.3.579.2.593 1944 Unknown [id number] 2.16.840.1.717949.3.579.2.125 9 Medicare Self Pay [id number] Self-pay Self Pay [id number] Unknown [id number] Unknown [id number] Social History Date Type Detail Facility Start: 11-10-2021 End: 04-29-2023 Tobacco smoking status NHIS Never smoked tobacco (finding) [facility] Start: 1945 Sex Assigned At Female F [facility] Start: 06-12-2018 End: 04-29-2023 Tobacco use and exposure Smokeless tobacco non-user [facility] Start: 01-08-2022 End: 08-19-2023 Alcohol intake Current drinker of alcohol (finding) [facility] Start: 06-12-2018 History SDOH Alcohol Comment very rare [facility] Start: 1945 Sex Assigned At Not on file C [facility] Start: 12-29-2021 End: 01-08-2022 Exposure to SARS-CoV-2 (event) Not sure [facility] Start: 04-29-2023 End: 08-19-2023 Sex Assigned At [facility] Tobacco smoking status NHIS Tobacco smoking consumption unknown [facility] Start: 04-29-2023 End: 08-19-2023 History of Social function [facility] Adult Depression Screening Assessment 0 [facility] NEGATED: Highlighted rowStart: NINF History of tobacco use Passive smoker [facility] Goals Date Patient Goal Desired Activity /State Functional Status Date Assessment Result Facility 11-09-2021 Functional status Patient at Baseline [facility] Work Phone: Mental Status Date Assessment Result Facility 11-09-2021 Cognitive function Cognitive Sta tus Patient at Baseline [facility] Work Phone: Clinical Notes 09-16-2020 to [...] (CMS/HCC) Hypertension (CMS/HCC) Type 2 diabetes mellitus (CMS/[facility]) Allergies Allergen Reactions Statins Other Reaction(s): joint [...] @ 11:13 AM Additional Tests Keratometry K1 Pawling K2 Pawling Right 43.50 153 44 63 Left 43.75 [...] Normal Normal Refraction Wearing Rx Sphere Cylinder Pawling Add Right -1.00 +0.00 180 +2.50 Left +1.75 -0.50 036 +2.50 Manifest Refraction Sphere Cylinder Pawling Right -0.25 -0.75 141 Left Final Rx Sphere Cylinder Pawling Dist [place] Add Right -1.00 20/25 +2.50 [...] different lens options were explained including the avo-nf-robfre fees for any upgrades. Intraocular lens (IOL) [...] remain poorly compliant. documented in this encounter [facility] 10-16-2023 Note [facility] Subjective Andrew Barros is a 78 y.o. year old female patient being seen for 6 mo follow up PAD, mitral valve regurgitation, chronic diastolic heart failure, and hypertension. Lisinopril was stopped at last visit in February 2023, and doxazosin was started. She was admitted to [facility] 2 weeks ago for hypomagnesemia and GO. [...] February 2023 she was admitted to the [facility] emergency room with epistaxis. She [...] and regular rhythm. (more content not included)... [facility] 08-19-2023 Note HNO ID: [id number] Author: Sandeep Lenz MD Service: ? Author Type: Physician Type: Progress Notes Filed: 08/20/2023 7:07 AM Note Text: [facility] NAME: Andrew Barros CLINIC NO.: [id number] DATE OF SERVICE: August 19, 2023 (Eduardo) [...] outer quadrant, invasive ductal carcinoma, ER postive, PA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 Mammograms at [facility] on 01/04/2021 Bi-Rads 2 benign. __ REVIEW [...] or petechiae. ALLERGIES (more content not included)... [facility] 08-19-2023 Miscellaneous Notes Pt aware of [place]'s message. She denies any additional questions, needs or concerns at this time. Clemente Srivastava RN ----- Message from Sandeep Lenz MD sent at 08/19/2023 2:33 PM EST ----- Calcium janki normal. Kidney function is stable documented in this encounter [facility] 06-10-2023 Miscellaneous Notes Called Nephrology office [...] Thanks! Samina Anderson documented in this encounter [facility] 05-21-2023 Miscellaneous Notes Pt aware of results and denies any questions or concerns at this time. She was transferred to scheduling to set up Q 6 week lab appts as requested. Clemente Srivastava RN ----- Message from Sandeep Lenz MD sent at 05/21/2023 10:15 AM EDT ----- Calcium was improved. - kidney function stable. CBC was normal. documented in this encounter [facility] 05-20-2023 Note HNO ID: [id number] Author: Sandeep Lenz MD Service: ? Author Type: Physician Type: Progress Notes Filed: 05/30/2023 5:58 AM Note Text: [facility] NAME: Andrew Barros [facility] NO.: [id number] DATE OF SERVICE: May 20, 2023 (Eduardo) [...] outer quadrant, invasive ductal carcinoma, ER postive, PA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 Mammograms at [facility] on 01/04/2021 Bi-Rads 2 benign. REVIEW OF [...] wounds or petechiae. ALLERGIES: ALLERGIES Allergen Reactions Jzjbgoo-Dur-Ljd Red* Unknown Other reaction(s): AOF MEDICATIONS: anastrozole [...] See your shae (more content not included)... [facility] 05-20-2023 Instructions Sandeep Lenz MD - 05/20/2023 3:59 PM EDT Continue Arimidex. Refer to nephrology for hypercalcemia and kidney failure Repeat labs today RTC in 3 months - repeat labs documented in this encounter [facility] 05-20-2023 History of Presen t illness Narrative [facility] NAME: Andrew Barros CLINIC NO.: [id number] DATE OF SERVICE: May 20, 2023 (Eduardo) [...] outer quadrant, invasive ductal carcinoma, ER postive, PA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 Mammograms at [facility] on 01/04/2021 Bi-Rads 2 benign. REVIEW OF [...] wounds or petechiae. ALLERGIES: ALLERGIES Allergen Reactions Thpephr-Utf-Tah Red* Unknown Other reaction(s): AOF MEDICATIONS: anastrozole [...] which included preparing to see the patient, qoqh-tc-uvbt patient care, completing clinical documentation, obtaining and/or reviewing separately obtained history, performing a medically appropriate examination, communicating results to the patient/family/caregiver and care coordination (not separately reported). Sandeep Lenz MD, CPE Services Provided at: [place], [place] & [place], [place] CC: Eduardo Sharpe MD [id number] [facility] [id number] documented in this encounter [facility] 05-09-2023 Note HNO ID: [id number] Author: Aleida Vargas LSW Service: ? Author Type: Nail Polish Brush Machine Feeder Type: Progress Notes Filed: 05/09/2023 11:00 AM Note Text: Patient appears on the [facility] Time Treatment List for a non-oncology treatment. No psychosocial assessment is indicated. DAPHNE Gupta [facility] 05-09-2023 History of Presen t illness Narrative Patient appears on the [facility] First Time Treatment List for a non-oncology treatment. No psychosocial assessment is indicated. DAPHNE Gupta documented in this encounter [facility] 04-29-2023 Note HNO ID: [id number] Author: Sandeep Lenz MD Service: ? Author Type: Physician Type: Progress Notes Filed: 05/05/2023 6:04 PM Note Text: NAME: BarrosAndrew [facility] NO.: [id number] DATE OF SERVICE: April 29, 2023 (Eduardo) [...] outer quadrant, invasive ductal carcinoma, ER postive, PA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 Mammograms at [facility] on 01/04/2021 Bi-Rads 2 benign. REVIEW OF [...] of recurring mass. ALLERGIES: ALLERGIES Allergen Reactions Eeiljbn-Fcp-Byl Red* Unknown Other reaction(s): AOF MEDICATIONS: doxazosin [...] mouth twice elaine (more content not included)... [facility] 04-29-2023 Instructions Sandeep Lenz MD - 04/29/2023 4:09 PM EDT Continue Arimidex. Stop Calcium Continue Vitamin D. Zometa for hypercalcemia later this week Repeat labs and tumor markers prior to zometa Bone scan - [facility] is fine. RTC after Bone scan documented in this encounter [facility] 04-29-2023 History of Presen t illness Narrative Images from the original note were not included. NAME: Andrew Barros CLINIC NO.: [id number] DATE OF SERVICE: April 29, 2023 (Eduardo) Some elements in this clinic note that are critical to medical decision making have been carefully reviewed and included from a prior clinic note dated: January 08, 2022 (Eduardo) Referring Provider: Eduardo Sharpe Additional Clinicians involved in Andrew Haile Barros's care: CC: History of Breast Cancer ASSESSMENT: 77 year old woman with Left breast upper outer quadrant, invasive ductal carcinoma, ER postive, PA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 Mammograms at [facility] on 01/04/2021 Bi-Rads 2 benign. REVIEW OF [...] of recurring mass. ALLERGIES: ALLERGIES Allergen Reactions Msalrut-Log-Pum Red* Unknown Other reaction(s): AOF MEDICATIONS: doxazosin [...] acetaminophen 650 mg tab(s) (TYLENOL), DISCONTINUED: zoledronic lz-buvyvcgg-6.9NaCl 4 mg iv piggyback 100 mL (ZOMETA) (E83.52) Hypercalcemia Plan: CA 27.29 BLOOD, CA 15-3 BLD, CBC + DIFF, COMP METABOLIC PANEL, PTH, INTACT (WITHOUT CALCIUM), PTH RELATED PEPTIDE, PTH, INTACT (WITHOUT CALCIUM), DISCONTINUED: PHARMACY COMMUNICATION PATIENT ARRIVED, DISCONTINUED: acetaminophen 650 mg tab(s) (TYLENOL), DISCONTINUED: zoledronic ql-vczspeue-4.9NaCl 4 mg iv piggyback 100 mL (ZOMETA) [...] which included preparing to see the patient, dbvg-ca-pdec patient care, completing clinical documentation, obtaining and/or reviewing separately obtained history, performing a medically appropriate examination, communicating results to the patient/family/caregiver and care coordination (not separately reported). Sandeep Lenz MD, CPE Services Provided at: [facility], [place], [place] & [place], [place] CC: Eduardo Sharpe MD [address] [facility] [address] documented in this encounter [facility] 04-01-2023 Note [facility] Subjective Andrew Barors is a 77 y.o. year old female [...] February 2023 she was admitted to the [facility] emergency room with epistaxis. She [...] General: Skin i (more content not included)... [facility] 01-14-2023 Note Cardiology Clinic No te [...] feeling fatigued. -She was recently discharged from [facility] d/t PNA and sepsis. She was also [...] perfused Neuro: A&Ox3, (more content not included)... [facility] 06-29-2022 Miscellaneous Notes Patient has an appt on 07/09/22. Would you like labs, if so place orders. Arabella Cotter MA documented in this encounter [facility] 05-19-2022 History of Presen t illness Narrative Images from the original note were not included. EMERGENCY TRIAGE, TREAT AND TRANSPORT (ET3) DOCUMENTATION OF TELEHEALTH VISIT Date / Time: 05/19/2022 / 1130 Name: Andrew Barros : 1945 SSN: (Not on file) EMS Agency: [facility] [x] Verbal consent obtained [] [...] Kristian Mcwilliams MD documented in this encounter [facility] 01-08-2022 History of Presen t illness Narrative Images from the original note were not included. Radiation Oncology - Follow Up Note PATIENT NAME: Andrew Barros PATIENT DIAGNOSIS/PATIENT IDENTIFICATION: Ms. Barros is a 76-year old female with Infiltrating ductal carcinoma of the Left breast, UOQ, pathologic stage IIA (pT1c pN1a M0), ER-positive, PA-positive and Her2/lauren not amplified, s/p partial mastectomy [...] was otherwise noncontributory. ALLERGIES ALLERGIES Allergen Reactions Dttdwbk-Aqy-Nyx Red* Unknown Other reaction(s): AOF MEDICATIONS: Current [...] pathologic stage IIA (pT1c pN1a M0), ER-positive, PA-positive and Her2/lauren not amplified, s/p partial mastectomy [...] which included preparing to see the patient, smze-ba-ylni patient care and counseling and educating the patient/family/caregiver. This document has been created with the use of voice recognition technology. It may contain inaccuracies, misspellings, inaccurate syntax or inappropriate word context that are a result of the inadequacies/shortcomings of said technology/software. documented in this encounter [facility] 01-08-2022 History of Presen t illness Narrative Images from the original note were not included. NAME: Andrew Barros [facility] NO.: [id number] DATE OF SERVICE: January 08, 2022 Some [...] outer quadrant, invasive ductal carcinoma, ER postive, PA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 Mammograms at [facility] on 01/04/2021 Bi-Rads 2 benign. REVIEW OF [...] of recurring mass. ALLERGIES: ALLERGIES Allergen Reactions Dutmitb-Aqv-Bhg Red* Unknown Other reaction(s): AOF MEDICATIONS: amLODIPine [...] which included preparing to see the patient, [id number] patient care, completing clinical documentation, obtaining and/or reviewing separately obtained history, performing a medically appropriate examination, communicating results to the patient/family/caregiver and care coordination (not separately reported). Sandeep Lenz MD, CPE Services Provided at: [facility], [place], [place] & [place], [place] CC: Eduardo Sharpe MD [address] [facility] [id number] documented in this encounter [facility] 01-08-2022 Nurse Note Patient has had brain bleeds since being here last she is seeing Dr. Hernandez Th, she has been in [facility] as an inpatient due to the bleeds. Arabella Cotter MA documented in this encounter [facility] 11-30-2021 Evaluation note Encounter Date Diagnosis [...] present CT and compared to the previous. [employer] Other 12-25-2020 NoteMicrobiology PROCEDURE: Blood Culture Charcoal [R1] SOURCE: Blood BODY SITE: Arm L COLLECTED DATE/TIME: 09/09/2020 13:00 EST RECEIVED DATE/TIME: 09/09/2020 14:05 EST START DATE/TIME: 09/09/2020 14:05 EST FREE TEXT SOURCE: lt chelle Pettit DO, Koko Pettit DO, Koko FINAL REPORTS Final Report [] Verified Date/Time: 09/16/2020 16:03 EST No growth at 7 days. Performing Locations R1: This test was performed at: [facility], [address] [place] [address], [id number] , , YgmsnoLouis Stokes Cleveland Va Medical CenterComment on above:Performed By: #### [id number] ####[facility] [id number] [place], [place] [id number] NoteMicrobiology PROCEDURE: Blood Culture Charcoal [R1] SOURCE: Blood BODY SITE: Hand L COLLECTED DATE/TIME: 09/09/2020 13:49 EST RECEIVED DATE/TIME: 09/09/2020 14:06 EST START DATE/TIME: 09/09/2020 14:06 EST FREE TEXT SOURCE: Koko Pettit DO, DO, John FINAL REPORTS Final Report [] Verified Date/Time: 09/16/2020 16:01 EST No growth at 7 days. Performing Locations R1: This test was performed at: [facility], [address] [place] [address], [facility] , , DewcwlLouis Stokes Cleveland Va Medical CenterComment on above:Performed By: #### [id number] #### [facility] Laboratory [address] [place] [address] note* Diagnosis Onset Date Resolution Status Atrial fibrillation acute Diabetes acute Hypertension acute Intracerebral hemorrhage acu te Nontraumatic intracerebral hemorrhage acute [facility] Work Phone: Evaluation note* Diagnosis Malignant neoplasm of upper-outer quadrant of left breast in female, estrogen receptor positive (HCC)- Primary Encounter for screening for osteoporosis Special screening for osteoporosis Hypercalcemia [facility] Diagnosis Malignant neoplasm of upper-outer quadrant of left breast in female, estrogen receptor positive (HCC)- Primary [facility]* Diagnosis Dyspnea, unspecified type- Primary [facility] Diagnosis Malignant neoplasm of upper-outer quadrant of left breast in female, estrogen receptor positive (HCC)- Primary Encounter for screening for osteoporosis Special screening for osteoporosis Hypercalcemia Hypercalcemia [facility]* Diagnosis Malignant neoplasm of upper-outer quadrant of left breast in female, estrogen receptor positive (HCC) [facility]* Diagnosis Hypercalcemia- Primary Other specified menopausal and perimenopausal disorders Malignant neoplasm of upper-outer quadrant of left breast in female, estrogen receptor positive (HCC) documented in this encounter [facility] note* Diagnosis Malignant neoplasm of upper-outer quadrant of left breast in female, estrogen receptor positive (HCC)- Primary Hypercalcemia Malignant neoplasm of breast in female, estrogen receptor positive, unspecified laterality, unspecified site of breast (HCC) Stage 3 chronic kidney disease, unspecified whether stage 3a or 3b CKD (HCC) [facility]* Diagnosis Malignant neoplasm of upper-outer quadrant of left breast in female, estrogen receptor positive (HCC) documented in this encounter [facility] note* Diagnosis Hypercalcemia- Primary Malignant neoplasm of upper-outer quadrant of left breast in female, estrogen receptor positive (HCC) Stage 3 chronic kidney disease, unspecified whether stage 3a or 3b CKD (HCC) [facility] noteNo InformationNortConemaugh [facility] [employer] Other Evaluation note* Diagnosis Age-related nuclear cataract of left eye- Primary Primary open angle glaucoma (POAG) of both eyes, mild stage (CMS/HCC) documented [facility] N[facility]ative - Reported* Type Description Date Medical History hypertension Medical History heart disease Medical History Esophageal reflux Medical History diabetes mallitus Medical History cancer Surgical History breast cancer Hospitalization History See Above [facility] Other reason for referral (narrative)* Diagnostic Procedure Only (Routine) - Pending Review Specialty Diagnoses / Procedures Referred By Compa t Referred To Contact MOLECULAR & FUNCTIONAL IMAGING Diagnoses Malignant neoplasm of breast in female, estrogen receptor positive, unspecified laterality, unspecified site of breast (HCC) Procedures NM BONE WHOLE BODY BONE &/JOINT IMAGING WHOLE BODY Sandeep Lenz MD [address] [place] [address] [place] [address] Molecular & Functional Imaging [address] [place] [address] Referral ID Status Reason Start Date Expiration Date Visits Requested Visits Authorized [id number] Pending Review Auto-Generat ed Referral 04/29/2023 05/28/2024 1 1 [facility] Summary Purpose Family History No Family [...] 04/30/2023 2:46 PM EDT 650 mg zoledronic jx-boxnirug-6.9NaCl 4 mg iv piggyback 100 mL (ZOMETA) [...] unspecified whether stage 3a or 3b CKD ([facility]) Procedures CONSULT TO KIDNEY MEDICINE OFFICE/OUTPATIENT NEW HIGH MDM 60-74 MINUTES Sandeep Lenz MD [address] [place] [address] [address] [place], [place] [address] Referral ID Status Reason Start Date Expiration Date Visits Requested Visits Authorized [id number] Authorized PCP Requested Referral 05/20/2023 05/19/2024 1 1 Additional Source Comments INFORMATION SOURCE (unrecogn ized section and content) DATE CREATED AUTHOR [facility]/18/[address] [facility] DATE CREATED AUTHOR AUTHOR'S ORGANIZ ATION 01/10/2022 [facility] DATE CREATED AUTHOR AUTHOR'S ORGANIZ ATION 05/15/2022 [facility] DATE CREATED AUTHOR AUTHOR'S ORGANIZ ATION 05/22/2022 [facility] DATE CREATED AUTHOR AUTHOR'S ORGANIZ ATION 09/24/2022 [facility] DATE CREATED AUTHOR AUTHOR'S ORGANIZ ATION 08/20/2023 [facility] DATE CREATED AUTHOR AUTHOR'S ORGANIZ ATION 11/01/2023 [facility] EPIC DATE CREATED AUTHOR AUTHOR'S ORGANIZ ATION 11/19/2023 [facility] Care Teams (unrecognized sec tion and content) [...] Eduardo Sharpe MD Primary Care Provider Active Cherry Picker Operator Relationship Specialty Start Date End Date Eduardo Sharpe MD [address] [place] [address] PCP - General Family Practice 05/30/18 Cherry Picker Operator Relationship Specialty Start Date End Date Eduardo Sharpe MD [address] [place] [id number] PCP - General Family Practice 05/30/18 Cherry Picker Operator Relationship Specialty Start Date End Date Eduardo Sharpe MD [address] [place] [address] PCP - General Family Medicine 05/30/18 Cherry Picker Operator Relationship Specialty Start Date End Date Eduardo Sharpe MD [address] [place] [address] PCP - General Family Medicine 05/30/18 Cherry Picker Operator Relationship Specialty Start Date End Date Eduardo Sharpe MD PCP - General Family Medicine 05/30/18 Cherry Picker Operator Relationship Specialty Start Date End Date Eduardo Sharpe MD PCP - General Family Medicine 05/30/18 Cherry Picker Operator Relationship Specialty Start Date End Date Eduardo Sharpe MD PCP - General Family Medicine 05/30/18 Cherry Picker Operator Relationship Specialty Start Date End Date Eduardo Sharpe MD PCP - General Family Medicine 05/30/18 Cherry Picker Operator Relationship Specialty Start Date End Date Eduardo Sharpe MD PCP - General Family Medicine 05/30/18 Cherry Picker Operator Relationship Specialty Start Date End Date Eduardo Sharpe MD PCP - General Family Medicine 05/30/18 Cherry Picker Operator Relationship Specialty Start Date End Date Eduardo Sharpe MD PCP - General Family Medicine 05/30/18 Cherry Picker Operator Relationship Specialty Start Date End Date Eduardo Sharpe MD PCP - General Family Medicine 05/30/18 Source Comments (unrecognize d section and content) In the event this informatio n is protected by the Federal Confidentiality of Alcohol and Drug Abuse Patient Records regulations: The Federal rules restrict any use of the information to criminally investigate or prosecute any alcohol or drug abuse patient.[facility] Hospital[facility] the event this information is protected by the Federal Confidentiality of Alcohol and Drug Abuse Patient Records regulations: The Federal rules restrict any use of the information to criminally investigate or prosecute any alcohol or drug abuse patient.[facility] Hospital[facility] the event this information is protected by the Federal Confidentiality of Alcohol and Drug Abuse Patient Records regulations: The Federal rules restrict any use of the information to criminally investigate or prosecute any alcohol or drug abuse patient.[facility] Hospital[facility] the event this information is protected by the Federal Confidentiality of Alcohol and Drug Abuse Patient Records regulations: The Federal rules restrict any use of the information to criminally investigate or prosecute any alcohol or drug abuse patient.[facility] Hospital[facility] the event this information is protected by the Federal Confidentiality of Alcohol and Drug Abuse Patient Records regulations: The Federal rules restrict any use of the information to criminally investigate or prosecute any alcohol or drug abuse patient.[facility] the event this information is protected by the Federal Confidentiality of Alcohol and Drug Abuse Patient Records regulations: The Federal rules restrict any use of the information to criminally investigate or prosecute any alcohol or drug abuse patient.[facility] Hospital[facility] the event this information is protected by the Federal Confidentiality of Alcohol and Drug Abuse Patient Records regulations: The Federal rules restrict any use of the information to criminally investigate or prosecute any alcohol or drug abuse patient.[facility] the event this information is protected by the Federal Confidentiality of Alcohol and Drug Abuse Patient Records regulations: The Federal rules restrict any use of the information to criminally investigate or prosecute any alcohol or drug abuse patient.[facility] the event this information is protected by the Federal Confidentiality of Alcohol and Drug Abuse Patient Records regulations: The Federal rules restrict any use of the information to criminally investigate or prosecute any alcohol or drug abuse patient.[facility] Hospital[facility] the event this information is protected by the Federal Confidentiality of Alcohol and Drug Abuse Patient Records regulations: The Federal rules restrict any use of the information to criminally investigate or prosecute any alcohol or drug abuse patient.[facility] Hospital[facility] the event this information is protected by the [facility] Confidentiality of Alcohol and Drug Abuse Patient Records regulations: The Federal rules restrict any use of the information to criminally investigate or prosecute any alcohol or drug abuse patient.[facility] HospitalIn the event this information is protected by the Federal Confidentiality of Alcohol and Drug Abuse Patient Records regulations: The Federal rules restrict any use of the information to criminally investigate or prosecute any alcohol or drug abuse patient.[facility] Reason for Visit (unrecogniz ed section [...] and perimenopausal disorders Hypercalcemia Sandeep Lenz MD [facility] [place] [place] [address] [employer] [facility] [place] [address] Referral ID Status Reason Start Date Expiration Date V isits Requested Visits Authorized [id number] Authorized 04/29/2023 07/28/2023 99 99 Reason Comments [...] BE BASED ON THE PRIMARY CLINICAL RECORDS. [employer] provides no warranty or guarantee of the accuracy or completeness of information in this document.
== END 2023-11-20 08:11 | disposition home or self-care (01) ==
LOC: US 08:10
PROVIDERS: PCP Family Medicine; Visit Provider Family Medicine
DX: N19 Unspecified kidney failure (principal); N20.0 Calculus of kidney
CPT/HCPCS: 76775

== ENCOUNTER 2023-11-26 12:22 | Outpatient (OUT) | payer MEDICARE, OTHER, SELFPAY | END 2023-11-26 12:23 | disposition home or self-care (01) | LOC: PST 12:22 | PROVIDERS: PCP Family Medicine; Visit Provider Ophthalmology | DX: Z01.818 Encounter for other preprocedural examination (principal); H25.812 Combined forms of age-related cataract, left eye; H40.1121 Primary open-angle glaucoma, left eye, mild stage ==

== ENCOUNTER 2023-11-28 06:20 | Day surgery (SDC) | payer MEDICARE, OTHER, SELFPAY ==
--- NOTE | 2023-11-27 | HP_ITS ---
Date: 11/27/2023 HISTORY: The patient is a 78-year-old white female with complaints of declining vision out of her left eye. The onset of this has been gradual over the prior two years. She states having difficulty with distance as well as near. Particularly, she states having difficulty seeing road signs at a distance, and seeing the scrolling at the bottom of the television. She states have difficulty reading. Additionally, she presently takes anti-glaucoma drops and is concerned about the interaction of her glaucoma, as she remains compliant and can always put the drops into her eyes. PAST OCULAR HISTORY: 1. Cataracts. 2. Primary open angle glaucoma, mild severity. PAST MEDICAL HISTORY: Atrial fibrillation, chronic kidney disease, hypertension and type 2 diabetes. SOCIAL HISTORY: Denies tobacco, alcohol or recreational drug abuse. SYSTEMIC MEDICATIONS: Include amlodipine, doxazosin, < > (sounds like ?eswarmin? but unable to verify), carvedilol, omeprazole, potassium chloride, furosemide, ezetimibe, aspirin 81 mg, ferrous sulfate. ALLERGIES TO MEDICATIONS: To statins. REVIEW OF SYSTEMS: No pertinent positives. PHYSICAL EXAM: GENERAL: In general, she is awake, alert and oriented x3, well developed, well nourished, in no acute distress. HEART: Regular rate and rhythm. LUNGS: Clear bilaterally. ABDOMEN: Soft, non-tender, non-distended. EXTREMITIES: No pitting edema. OPHTHALMIC EXAM: Revealed a visual acuity of 20/25 in the right and 20 +2 in the left that glared to 20/200. Pupils motility, muscle balance and confrontational visual estrada within normal limits bilaterally. Slit lamp exam revealed blepharitis with a severe decrease in tear film bilaterally. Conjunctiva, cornea, anterior chamber and iris were within normal limits bilaterally. Lens status demonstrated a well centered posterior chamber intraocular lens in the right eye, 3+ nuclear sclerosis with 1+ cortical changes in the left eye. FUNDUS EXAM: Revealed good view with good dilation bilaterally. Optic discs, macula, vessels, periphery and vitreous were within normal limits bilaterally. ASSESSMENT AND PLAN: 1. Visually significant cataract, left eye. After the risks, benefits, and alternatives as well as expectations were delivered to the patient, she elected to go forward with the procedure of cataract removal with intraocular lens placement. She understands the risks to include but not limited to infection, bleeding, loss of vision or loss of the eye itself. Secondly, she understands that postoperatively she is likely to require spectacle correction for her best visual acuity. Finally, a complete ophthalmic exam was performed and there was not determined to be any other source of vision decline other than that of the cataract. 2. Primary open angle glaucoma, mild severity left eye. After the risks, benefits, alternatives as well as expectations were delivered to the patient, she elected to go forward with a Hydrus stent insertion to the left eye. She understands the risks include but not limited to those listed for the cataract removal process, as well as intraocular bleeding, and the expectation that glaucoma cannot progress with the application of the stent, and this is incorrect. She also understands that this does not guarantee the elimination of any drops for treatment of glaucoma. After understanding all risks as well as expectations, she elected to go forward with both the procedures as listed above and will be doing so in the near future. ANGEL LUIS
--- NOTE | 2023-11-28 | OP_ITS ---
OPERATION DATE: 11/28/2023 SURGEON: Apolinar Forrester M.D. PREOPERATIVE DIAGNOSIS: 1. Nuclear sclerotic cataract left eye 2. Primary open angle glaucoma, mild severity, left eye. POSTOPERATIVE DIAGNOSIS: 1. Nuclear sclerotic cataract left eye. 2. Primary open angle glaucoma, mild severity, left eye. PROCEDURE NAME: 1. Cataract extraction with intraocular lens placement of the left eye. 2. Hydrus stent insertion left eye. ANESTHESIA: Topical ESTIMATED BLOOD LOSS: Zero. COMPLICATIONS: None. PROCEDURE: The patient was brought to the Operating Room in supine position. After proper identification, the left eye was prepped and draped in a sterile ophthalmic fashion. A paracentesis was created at the 5 o'clock position. Approximately 1 cc of unpreserved Xylocaine was injected into the anterior chamber followed by Amvisc Plus. Using a 2.6 mm Keratome blade, a clear corneal incision was created at the 2 o'clock limbus. A cystotome was then used to begin a curvilinear capsulorrhexis that was continued for 360 degrees with the Utrata forceps. BSS on a 26 gauge cannula was injected beneath the anterior capsule to hydrodissect as well as hydrodelineate the lens. After ensuring mobility, phacoemulsification was performed in a cvrpopr-[id number]-trxljf-type fashion. After all nuclear material had been removed from the eye, IA was introduced and all residual cortical material was cleaned up. Additional Amvisc Plus was injected into the posterior bag and a lens model MX60, 26.0 diopters was injected and dialed into position. Steps were now taken to move on to the glaucoma stenting procedure. Healon 5 was injected into the anterior chamber to further pressurize and stabilize it. Using the 2.6 mm Keratome blade, the internal limb of the phaco wound temporally was expanded for better trajectory of the insertion of the Hydrus stent. The patient?s head was rotated away from the surgeon, while the operating microscope rotated toward the surgeon, both approximately 20 degrees. Amvisc Plus was placed on the surface of the gonioprism that was placed on the surface of the eye, and this allowed good visualization of the trabecular meshwork at the 9 o?clock location. The Hydrus stent was called for and primed and inserted through the temporal wound with good visualization, as it was guided across the anterior chamber, to the trabecular meshwork at the 9 o?clock location. Utilizing the tip of the edge bonder, the trabecular meshwork was dissected into and accessing Schlemm?s canal. Once accessed, the stent was deployed into Schlemm?s canal good visualization. After checking for stabilization and location, the edge bonder as well as the gonioprism were removed from the eye and the patient?s head was rotated back to a more neutral cataract removal position. IA was reintroduced into the anterior chamber and all residual Amvisc Plus and Healon 5 were removed from the eye. BSS on a 30 gauge cannula was injected into the stroma of both the clear corneal incision as well as paracentesis to hydrate the wounds. Additional BSS was injected into the anterior chamber to pressurize the eye at approximately 20 to 22 mmHg by finger tension. 0.1 cc of antibiotic was used to wash out the anterior chamber, maintained at the pressures above. One drop of apraclonidine and one drop of prednisolone acetate were placed into the eye and a shield was placed over top. The patient was sent to the postoperative area in satisfactory condition to follow up the following day for postoperative care. ANGEL LUIS
--- OUTSIDE RECORDS SUMMARY | 2023-11-28 06:25 | XMS_ITS | CCD ---
Author Name Unknown Address [address] [place] [address] Organization [facility] Care Team Providers Care Drywall Hanger Name Role Phone MD Eduardo Sharpe Primary Care Provider [phone] MD Radha Echavarriaop Admit Provider MD Shaka Echavarria Attending Provider [phone] MD Brayden Hernandez Other Provider MD Brayden Hernandez Attending Provider [phone] Eduardo Sharpe MD Primary Care Provider [phone] Brayden Hernandez Unavailable EDUARDO SHARPE Primary Care Unavailable EDUARDO SHARPE Referring Unavailable GANESH HALE Admitting Unavailable GANESH HALE Attending Unavailable Unavailable Primary Care Provider Unavailhcarles e PROVIDER, UNKNOWN Attending Unavailable PROVIDER, UNKNOWN Admitting Unavailable Eduardo Sharpe MD Primary Care Provider [phone] MIKALA HIGGINS Admitting Unavailable MIKALA HIGGINS Attending [...] Admitting Unavailable DR EDUARDO SHARPE Attending Unavailable DELL DR CLARK Primary Care Unavailable DELL, DR [...] DR CLARK Consulting Unavailable DELL, DR CLARK Admmanjula Unavailable ARNALDO SANCHEZ Consulting Unavailable DELL, DR CLARK Primary Care Unavailable FAWWAD, PARKS H Attending Unavailable FAWWAD, PARKS H Admitting Unavailable DELL, DR CLARK Admitting Unavailable DELL, DR CLARK Consulting Unavailable DELL, DR CLARK Procedure Practitioner Unavailab amaya SHARPE, DR CLARK Attending Unavailable DELL, DR CLARK Primary Care Unavailable DERICK, DR YU Damon Consulting [facility] COLE, DR GRIMALDO Consulting Unavailable BALBIR, DR KATLYN Aragon Consulting Unavailable SAM, KATHI Consulting Unavailable REJI, RE Consulting Unavailable JAZMÍN MACHADO Consulting Unavailable ABHYANKAR, SANDEEP Admitting Unavailable ABHYANKAR, SANDEEP Attending Unavailable ZIEBER, DR KATLYN Aragon Consulting Unavailable LEONAY, DR CLARK Primary Care Unavailable ABHYANKRAFA, SANDEEP Consulting Unavailable LEONAY, DR CLARK Primary Care Unavailable HOY, DR CLARK Attending Unavailable HOY, DR CLARK Admitting Unavailable HOY, DR CLARK Consulting Unavailable HOY, DR CLARK Primary Care Unavailable HOY, DR CLARK Attending Unavailable HOY, DR CLARK Admitting Unavailable HOY, DR CLARK Consulting Unavailable HOY, DR CLARK Attending Unavailable HOY, DR CLARK Admitting Unavailable HOY, DR CLARK Primary Care Unavailable HAY, DR DELEON Consulting Unavailable ANGÉLICA BAILEY Consulting Unavailable LEONAY, DR CLARK Primary Care Unavailable SHAIKH AGUIAR H Attending Unavailable SHAIKH AGUIAR H Admitting Unavailable DELL, DR CLARK Primary Care Unavailable ELIASUKAPRAVEEN, DR BORRERO Consulting Unavailable ELIASUKAPRAVEEN, DR BORRERO Admitting Unavailable MOUKAPRAVEEN, DR BORRERO Attending Unavailable Eduardo Sharpe MD Primary Care Provider [phone] Bala Hartman Unavailable MARK ISABEL Attending Unavailable TRINA HAIDER Referring Unavailable Unavailable Primary Care Provider UnavailGISSELL Conteh Attending Unavailable GISSELL SANDOVAL Attending Unavailable DAYO GRIFFIN Attending Unavailable HOY, EDURADO M Primary Care Unavailable ABHYANKAR, SANDEEP Referring Unavailable HOY, EDUARDO M Primary Care Unavailable ABHYANKAR, SANDEEP Referring Unavailable ABHYANKAR, SANDEEP Attending Unavailable HOY, EDUARDO M Primary Care Unavailable [...] EDUARDO M Primary Care Unavailable ABHYANKAR, SANDEEP Referring Unavailable ABHYANKAR, SANDEEP Attending Unavailable Allergies Allergy Classification Reported Allergen(s) Allergy Type Date of Onset Reaction(s) Facility (1 source) Qpuxpbj-OIH-AnJ Reductase Inhibitor Propensity to adverse reactions 0 [facility] (5 sources) HMG-CoA reductase inhibitor; Translations: [NAWEUPP-VTV-WVD REDUCTASE INHIBITORS] Drug Allergy 8 Unknown [facility] (1 source) black walnut pollen extract Drug Allergy 8 [facility] (11 sources) HMG-CoA reductase inhibitor Drug Allergy 8 Unknown [facility] (2 sources) Simvastatin Drug Allergy [facility] Medications Current Medications Medication Drug Class(es) Dates Sig (Normalized) Sig (Original) Accu-Chek Fifi Plus - (2 sources) Accu-Chek Fifi Plus - TEST BLOOD SUGAR ONCE DAILY DX: E11.65 In Vitro for 90 Days Active amLODIPine 5 mg oral tablet (17 sources) Dihydropyridine Calcium Channel Isabel Start: 04-30-2023 take 1 tablet by mouth in the morning amLODIPine (Norvasc) 5 MG tablet Take 1 tablet by mouth in the morning and 1 tablet before bedtime. 0 04/30/2023 Active Start: 12-05-2021 take 2 tablets by mo ut twice daily amLODIPine (NORVASC) 2.5 mg tablet Take 5 mg by mouth twice daily. 0 12/05/2021 Active Start: 11-11-2021 take 1 tablet by mena once daily amLODIPine (NORVASC) 2.5 mg tablet Take 2.5 mg by mouth once daily. 0 12/05/2021 Active Comment on above: Take 2.5 mg by mouth once daily. Take 5 mg by mouth t wice daily. bimatoprost 0.1 mg/ml ophthalmic solution (14 sources) Prostaglandin Analog Start: 2 take 0.01 drop(s) into the eye(s) once daily in the evening Bimatoprost (Lumigan) 0.01 % Drops Active 1 DROPS EYE-BOTH Every evening November 09, 2021 7:27pm bimatoprost (LUM IGAN) 0.01 % drop ophthalmic drops 1 Drop as directed. 0 Active Comment on above: 1 Drop as directed. carvedilol 25 mg oral tablet (20 sources) alpha-Adrenergic Isabel, beta-Adrenergic Isabel Start: 11-09-2021 [...] 2021 8:14pm take 1 tablet by mena th once daily carvedilol (COREG) 25 mg tablet Take 25 mg by mouth as directed. Takes 1 1/2 tablet 2x a day 0 Active take 0.5 tablet by m outh twice daily carvedilol (Coreg) 25 MG tablet Take 0.5 tablets twice a day by oral route for 90 days. 0 Active Comment on above: Take 25 mg by mouth as directed. Takes 1 1/2 tablet 2x a day ergocalciferol 1.25 mg oral capsule (2 sources) Provitamin D2 Compound Start: 09-10-20 End: 09-15-20 take 1250 ug by mouth every week Ergocalciferol (Vitamin D2) Active 1250 MCG PO every week 8 September 15, 2020 5:27pm Takes every Saturday furosemide 20 mg oral tablet (18 sources) Loop Diuretic Start: 09-22-20 take 40 [...] Active Multivitamin preparation (1 source) Start: 09-10-20 take [...] 8:13pm Start: 04-12-2021 take 1 capsule by [facility] every twelve hours, then take 1 [...] 10, 2020 1:30am November 09, 2021 7:27pm [id number] 200 actuat albuterol 0.09 mg/actuat metered dose [...] date 09/20/20 anastrozole 1 mg oral tablet (20 sources) Aromatase Inhibitor Start: 12-04-2021 End: 05-08-2023 [...] EVERY DAY aspirin 81 mg oral tablet (11 sources) Platelet Aggregation Inhibitor, Nonsteroidal Anti-inflammatory Drug [...] (Bisacodyl)) 10 mg Suppository Discontinued 10 MG MD Daily September 10, 2020 1:30am September 19, 2020 1:20pm calcium carbonate 625 mg / cholecalciferol 125 unt oral tablet (11 sources) Vitamin D Start: take 1 tablet [...] 20 mg/ml oral solution (1 source) Uncompetitive R-mjqtkn-S-aspartate Receptor Antagonist, Sigma-1 Agonist Start: End: take [...] 2020 2:22am doxazosin 4 mg oral tablet (10 sources) alpha-Adrenergic Isabel Start: End: take 1 tablet by mouth once daily at bedtime doxazosin (CARDURA) 4 mg tablet Take 4 mg by mouth daily at bedtime. 0 04/01/2023 Active Comment on above: Take 4 mg by mouth d aily at bedtime. ezetimibe 10 mg oral tablet (19 sources) Dietary Cholesterol Absorption Inhibitor Start: End: Ezetimibe Discontinued MG TABLET September 10, 2020 2:05am September 10, 2020 2:19am Start: 09-10-2020 End: 09-15-2020 take 10 mg by mouth once daily Ezetimibe Active 10 MG PO Daily September 15, 2020 5:27pm Comment on above: Take 10 mg by mouth once daily. ferrous sulfate 325 mg oral tablet (10 sources) take 1 tablet by mouth once daily ferrous sulfate 325 mg (65 mg iron) tablet Take 325 mg by mouth once daily. 0 Active take 1 tablet by mouth twice eligio ly ferrous sulfate 325 (65 Fe) MG tablet TAKE 1 TABLET BY MOUTH TWICE A DAY for 90 0 Active Comment on above: Take 325 [...] 2:05am September 10, 2020 2:21am lactobacillus acidophilus [id number] unt / pectin 10 mg oral capsule (1 source) Start: 09-10-2020 End: 09-19-2020 take 1 capsule by mouth four times daily Acidophilus-Pectin , [place] (Acidophilus Probiotic) 100 million cell-10 mg Capsule [...] 1:20pm metFORMIN hydrochloride 500 mg oral tablet (20 sources) Biguanide Start: 11-11-2021 take 1 tablet [...] mg by mouth twice daily. Multivitamin capsule (13 sources) take 1 capsule by mouth once daily Multivitamin capsule Take 1 capsule by mouth once daily. 0 Active Comment on above: Take 1 capsule by [facility] once daily. nitroglycerin 0.4 mg sublingual tablet (1 source) Nitrate Vasodilator Start: 09-10-20 End: 11-09-19 Nitroglycerin Discontinued 0.4 MG SUBLINGUAL Every 5 minutes x 3 doses September 10, 2020 1:28am November 09, 2021 7:27pm omeprazole 40 mg delayed release oral capsule (18 sources) Proton Pump Inhibitor Start: 04-08-20 take [...] September 15, 2020 12:43pm polyethylene glycol 3350 90530 mg powder for oral solution (1 source) Osmotic Laxative Start: 09-10-2020 End: 09-19-2020 Polyethylene Glycol 3350 (Miralax) 17 gram Powder In Packet Discontinued 17 GM PO Daily September 10, 2020 1:30am September 19, 2020 1:20pm potassium chloride 10 meq extended release oral tablet (17 sources) Start: 09-22-2020 potassium chlo ride (K-TAB) 10 mEq tablet Comment on above: Potassium Chloride A ctive [...] 2020 12:43pm rivaroxaban 20 mg oral tablet (16 sources) Factor Xa Inhibitor Start: 09-10-2020 End: [...] 19-7 gram/118 mL Enema Discontinued 118 ML MD Daily September 10, 2020 1:59am September 19, [...] Onset: 10-31-2023 10-31-2023 Chronic Chronic kidney disease (13 sources) Chronic kidney disease, stage 2 (mild); [...] coli infections] Onset: 07-19-2022 Episodic Menopausal disorders (14 sources) Menopausal and postmenopausal disorders; Translations: [Other specified menopausal and perimenopausal disorders] Onset: 04-20-2021 04-20-2021 Chronic Nutritional deficiencies (2 sources) Moderate protein-calorie malnutrition; Translations: [Vitamin D deficiency, unspecified] Onset: 01-11-2022 Chronic Other aftercare (1 source) snf (current) use of oral hypoglycemic drugs; Translations: [CHRONIC SPECIALIST USE ORAL HYPOGLYCEMIC DX] Onset: 09-03-2022 Episodic Other aftercare (1 source) Other offset lithographic press operator (current) drug therapy; Translations: [OTH JAIL CURRENT DRUG THERAPY] Onset: 09-03-2022 Episodic Other aftercare (1 source) supervising chef (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) use of aspirin; Translations: [CHRONIC SPECIALIST CURRENT USE OF ASPIRIN] Onset: 09-03-2022 Episodic Other aftercare (1 source) supervising chef (current) use of anticoagulants; Translations: [JAIL CURRNT USE ANTICOAGULANTS] Onset: 08-25-2022 Episodic Other [...] Episodic Other nutritional; endocrine; and metabolic disorders (16 sources) Hypercalcemia; Translations: [Hypercalcemia] Onset: 04-29-2023 Chronic Other screening for suspected conditions (not mental disorders or infectious disease) (5 sources) Patient encounter status; Translations: [Encounter for screening for osteoporosis] Onset: 01-11-2022 Episodic Pneumonia (except that caused by tuberculosis or [...] [PAIN IN LEFT WRIST] Onset: 05-30-2022 Episodic Residual codes; unclassified (1 source) Estrogen receptor positive status [ER+]; Translations: [ESTROGEN RECEPTOR POSITIVE STATUS] Onset: 01-10-2022 Episodic Syncope (4 sources) Syncope and collapse; Translations: [SYNCOPE AND COLLAPSE] Onset: 01-11-2022 Episodic Results Test Name Value Interpretation Reference Range Facility CBC W Auto Differential pane l (Bld)on 11-25-2023 Basophils (Bld) [#/Vol] 0.06 10*3/uL Normal <0.11 [facility] Comment on above: Order Comment: Speci men Type: BLOOD SPECIMENOrdering Facility: [facility] Address: [address] [place] [address] Performed By: #### 5 7021-8 ####[facility] LABCLIA [id number] [place] [address] Basophils/100 WBC (Bld) 0.6 % Normal [facility] Comment on above: Order Comment: Speci men Type: BLOOD SPECIMENOrdering Facility: [facility] Address: [address] [place] [address] Performed By: #### 5 7021-8 ####[facility] LABCLIA [id number] [place] [address] Differential cell count method Nom (Bld) Auto Normal [facility] Comment on above: Order Comment: Speci men Type: BLOOD SPECIMENOrdering Facility: [facility] Address: [address] [place] [address] Performed By: #### 5 7021-8 ####[facility] LABCLIA [id number] [place] [address] Eosinophils (Bld) [#/Vol] 0.17 10*3/uL Normal <0.46 [facility] Comment on above: Order Comment: Speci men Type: BLOOD SPECIMENOrdering Facility: [facility] Address: [address] [place] [address] Performed By: #### 5 7021-8 ####[facility] LABCLIA [id number] [place] [address] Eosinophils/100 WBC (Bld) 1.7 % Normal [facility] Comment on above: Order Comment: Speci men Type: BLOOD SPECIMENOrdering Facility: [facility] Address: [address] [place] [address] Performed By: #### 5 7021-8 ####[facility] LABCLIA [id number] [place] [address] Erythrocyte distribution width (RBC) [Ratio] 13.5 % Normal 11.5-15.0 [facility] Comment on above: Order Comment: Speci men Type: BLOOD SPECIMENOrdering Facility: [facility] Address: [address] [place] [address] Performed By: #### 5 7021-8 ####[facility] LABCLIA [id number] [place] [address] Hematocrit (Bld) [Volume fraction] 37.2 % Normal 36.0-46.0 [facility] Comment on above: Order Comment: Speci men Type: BLOOD SPECIMENOrdering Facility: [facility] Address: [address] [place] [address] Performed By: #### 5 7021-8 ####[facility] LABCLIA [id number] [place] [address] Hemoglobin (Bld) [Mass/Vol] 12.0 g/dL Normal 11.5-15.5 [facility] Comment on above: Order Comment: Speci men Type: BLOOD SPECIMENOrdering Facility: [facility] Address: [address] [place] [address] Performed By: #### 5 7021-8 ####[facility] LABCLIA [id number] [place] [address] Immature granulocytes (Bld) [#/Vol] 0.04 10*3/uL Normal <0.10 [facility] Comment on above: Order Comment: Speci men Type: BLOOD SPECIMENOrdering Facility: [facility] Address: [address] [place] [address] Performed By: #### 5 7021-8 ####[facility] LABCLIA [id number] [place] [address] Immature granulocytes/100 WBC (Bld) 0.4 % Normal [facility] Comment on above: Order Comment: Speci men Type: BLOOD SPECIMENOrdering Facility: [facility] Address: [address] [place] [address] Performed By: #### 5 7021-8 ####[facility] LABCLIA [id number] [place] [address] Lymphocytes (Bld) [#/Vol] 1.17 10*3/uL Normal 1.00-4.00 [facility] Comment on above: Order Comment: Speci men Type: BLOOD SPECIMENOrdering Facility: [facility] Address: [address] [place] [address] Performed By: #### 5 7021-8 ####[facility] LABIA [id number] [place] [address] Lymphocytes/100 WBC (Bld) 11.5 % Normal [facility] Comment on above: Order Comment: Speci men Type: BLOOD SPECIMENOrdering Facility: [facility] Address: [address] [place] [address] Performed By: #### 5 7021-8 ####[facility] LABCLIA [id number] [place] [address] MCH (RBC) [Entitic mass] 30.1 pg Normal 26.0-34.0 [facility] Comment on above: Order Comment: Speci men Type: BLOOD SPECIMENOrdering Facility: [facility] Address: [address] [place] [address] Performed By: #### 5 7021-8 ####[facility] LABIA [id number] [place] [address] MCHC (RBC) [Mass/Vol] 32.3 g/dL Normal 30.5-36.0 [facility] Comment on above: Order Comment: Speci men Type: BLOOD SPECIMENOrdering Facility: [facility] Address: [address] [place] [address] Performed By: #### 5 7021-8 ####[facility] LABIA [id number] [place] [address] MCV (RBC) [Entitic vol] 93.2 fL Normal 80.0-100.0 [facility] Comment on above: Order Comment: Speci men Type: BLOOD SPECIMENOrdering Facility: [facility] Address: [address] [place] [address] Performed By: #### 5 7021-8 ####[facility] LABCLIA [id number] [place] [address] Monocytes (Bld) [#/Vol] 0.88 10*3/uL High <0.87 [facility] Comment on above: Order Comment: Speci men Type: BLOOD SPECIMENOrdering Facility: [facility] Address: [address] [place] [address] Performed By: #### 5 7021-8 ####[facility] LABIA [id number] [place] [address] Monocytes/100 WBC (Bld) 8.7 % Normal [facility] Comment on above: Order Comment: Speci men Type: BLOOD SPECIMENOrdering Facility: [facility] Address: [address] [place] [address] Performed By: #### 5 7021-8 ####[facility] LABCLIA [id number] [place] [address] Neutrophils (Bld) [#/Vol] 7.81 10*3/uL High 1.45-7.50 [facility] Comment on above: Order Comment: Speci men Type: BLOOD SPECIMENOrdering Facility: [facility] Address: [address] [place] [address] Performed By: #### 5 7021-8 ####[facility] LABCLIA [id number] [place] [address] Neutrophils/100 WBC (Bld) 77.1 % Normal [facility] Comment on above: Order Comment: Speci men Type: BLOOD SPECIMENOrdering Facility: [facility] Address: [address] [place] [address] Performed By: #### 5 7021-8 ####[facility] LABCLIA [id number] [place] [address] Nucleated RBC (Bld) [#/Vol] 10*3/uL Normal <0.01 [facility] Comment on above: Order Comment: Speci men Type: BLOOD SPECIMENOrdering Facility: [facility] Address: [address] [place] [address] Performed By: #### 5 7021-8 ####[facility] LABCLIA [id number] [place] [address] Nucleated RBC/100 WBC (Bld) [Ratio] 0.0 /100 WBC Normal [facility] Comment on above: Order Comment: Speci men Type: BLOOD SPECIMENOrdering Facility: [facility] Address: [address] [place] [address] Performed By: #### 5 7021-8 ####[facility] LABCLIA [id number] [place] [address] Platelet mean volume (Bld) [Entitic vol] 10.8 fL Normal 9.0-12.7 [facility] Comment on above: Order Comment: Speci men Type: BLOOD SPECIMENOrdering Facility: [facility] Address: [address] [place] [address] Performed By: #### 5 7021-8 ####[facility] LABCLIA [id number] [place] [address] Platelets (Bld) [#/Vol] 268 10*3/uL Normal 150-400 [facility] Comment on above: Order Comment: Speci men Type: BLOOD SPECIMENOrdering Facility: [facility] Address: [address] [place] [address] Performed By: #### 5 7021-8 ####[facility] LABCLIA [id number] [place] [address] RBC (Bld) [#/Vol] 3.99 10*6/uL Normal 3.90-5.20 [facility] Comment on above: Order Comment: Speci men Type: BLOOD SPECIMENOrdering Facility: [facility] Address: [address] [place] [address] Performed By: #### 5 7021-8 ####[facility] LABIA [id number] [place] [address] WBC (Bld) [#/Vol] 10.13 10*3/uL Normal 3.70-11.00 [facility] Comment on above: Order Comment: Speci men Type: BLOOD SPECIMENOrdering Facility: [facility] Address: [address] [place] [address] Performed By: #### 5 7021-8 ####[facility] LABIA [id number] [place] [address] CNOVSPon 11-25-2023 OVS Visit (SP) Office ([facility]) -- ANDREW BARROS ([id number]) 1945 F Date Time Provider Department 11/25/23 2:15 PM SANDEEP LENZ During your visit today, we recorded the following information about you: Temperature Pulse Respiration Blood pressure 97.5 degrees 70/minute 18/minute 144/63 Weight Height 63.9 kg 1.626 m Sandeep Lenz MD 11/25/2023 7:36 PM Signed NAME: Andrew Barros [facility] NO.: [id number] DATE OF SERVICE: November 25, 2023 (Eduardo) Some elements in this clinic note that are critical to medical decision making have been carefully reviewed and included from a prior clinic note dated: August 19, 2023 (Eduardo) Referring Provider: Eduardo Sharpe Additional Clinicians involved in Andrew Barros's care: DIAGNOSIS: History of Breast Cancer ASSESSMENT: 78 year old woman with Left breast upper outer quadrant, invasive ductal carcinoma, ER postive, MD positive, Her2 lauren negative; 1.6 cm x [...] Stopped taking Calcium - level normalized. PLAN: RTC in 1 year - repeat labs - Exam same day. Repeat Mammogram prior to return Stop Arimidex. HPI: CASE HISTORY: Reverse Chronological Order 08/28/2023 - Bilateral Mammogram Diagnostic category 2 Benign 05/02/2023 - Bone Scan - negative for osseous mets. 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 04/24/2021 - DEXA scan World Health Organization classification: Normal-low fracture risk. 01/04/2021 - Mammograms at [facility] Bi-Rads 2 benign. 09/26/2018 - Started arimidex 09/10/2018 - Completed radiation 06/05/2018 - L breast lumpectomy and SNB Updated Visit, November 25, 2023: Returns with Sugey - is getting overwhelmed with changes in medical therapy for er kidneys and heart. Kidey function continues to decline now at Stage 4 kidney failure. Focus on kidney and bladder dysfunction. Likely needs nephrology. Has to void every 2 hours at night. Updated Visit, August 19, 2023: Here with [...] need to. Updated Visit, May 20, 2023: Sugey her daughter is with her. Unclear [...] with no new issues, problems or concerns. Updated Visit, April 20, 2021: Andrew is [...] and to start on Vit-D + Calcium. REVIEW OF SYSTEMS Per HPI and otherwise negative by full review of organ systems. _- ECOG PERFORMANCE STATUS: 0 PHYSICAL EXAMINATION: Vitals: BP 144/63 Pulse 70 Temp (Src) 97.5 (Temporal) Resp 18 Ht 5' 4.016 (1.63m) Wt 140 lb 14 oz (63.9k (more content not included)... Normal [facility] Calcium.ionized [Moles/Vol]o n 11-25-2023 Calcium.ionized (Bld) [Mass/Vol] 1.27 mmol/L Normal 1.08-1.30 [facility] Comment on above: Order Comment: Speci men Type: BLOOD SPECIMENOrdering Facility: [facility] Address: [address] [place] [address] Performed By: #### 1 995-0 ####[facility] [id number] [place] [address] [place] Calcium.ionized adjusted to pH 7.4 (Bld) [Moles/Vol] 1.25 mmol/L Normal 1.08-1.30 [facility] Comment on above: Order Comment: Speci men Type: BLOOD SPECIMENOrdering Facility: [facility] Address: [address] [place] [address] Performed By: #### 1 995-0 ####[facility] [id number] [place] [address] [place] Comprehensive metabolic 2000 panelon 11-25-2023 Albumin [Mass/Vol] 4.5 g/dL Normal 3.9-4.9 [facility] Comment on above: Order Comment: Speci men Type: BLOOD SPECIMENOrdering Facility: [facility] Address: [address] [place] [address] Performed By: #### 2 4323-8 ####[facility] LABCLIA [id number] [place] [address] ALP [Catalytic activity/Vol] 98 U/L Normal 34-123 [facility] Comment on above: Order Comment: Speci men Type: BLOOD SPECIMENOrdering Facility: [facility] Address: [address] [place] [address] Performed By: #### 2 4323-8 ####[facility] LABCLIA [id number] [place] [address] ALT [Catalytic activity/Vol] 11 U/L Normal 7-38 [facility] Comment on above: Order Comment: Speci men Type: BLOOD SPECIMENOrdering Facility: [facility] Address: [address] [place] [address] Performed By: #### 2 4323-8 ####[facility] LABCLIA [id number] [place] [address] Anion gap [Moles/Vol] 14 mmol/L Normal 9-18 [facility] Comment on above: Order Comment: Speci men Type: BLOOD SPECIMENOrdering Facility: [facility] Address: [address] [place] [address] Performed By: #### 2 4323-8 ####[facility] LABCLIA [id number] [place] [address] AST [Catalytic activity/Vol] 16 U/L Normal 13-35 [facility] Comment on above: Order Comment: Speci men Type: BLOOD SPECIMENOrdering Facility: [facility] Address: [address] [place] [address] Performed By: #### 2 4323-8 ####[facility] LABCLIA [id number] [place] [address] Bilirubin [Mass/Vol] 0.5 mg/dL Normal 0.2-1.3 [facility] Comment on above: Order Comment: Speci men Type: BLOOD SPECIMENOrdering Facility: [facility] Address: [address] [place], [place] [address] Performed By: #### 2 4323-8 ####[facility] LABCLIA [id number] [place] [address] Calcium [Mass/Vol] 10.2 mg/dL Normal 8.5-10.2 [facility] Comment on above: Order Comment: Speci men Type: BLOOD SPECIMENOrdering Facility: [facility] Address: [address] [place], [place] [address] Performed By: #### 2 4323-8 ####[facility] LABCLIA [id number] [place] [address] Chloride [Moles/Vol] 100 mmol/L Normal 97-105 [facility] Comment on above: Order Comment: Speci men Type: BLOOD SPECIMENOrdering Facility: [facility] Address: [address] [place] [address] Performed By: #### 2 4323-8 ####[facility] LABCLIA [id number] [place] [address] CO2 [Moles/Vol] 24 mmol/L Normal 22-30 [facility] Comment on above: Order Comment: Speci men Type: BLOOD SPECIMENOrdering Facility: [facility] Address: [address] [place] [address] Performed By: #### 2 4323-8 ####[facility] LABCLIA [id number] [place] [address] Creatinine [Mass/Vol] 1.66 mg/dL High 0.58-0.96 [facility] Comment on above: Order Comment: Speci men Type: BLOOD SPECIMENOrdering Facility: [facility] Address: [address] [place], [place] [address] Performed By: #### 2 4323-8 ####[facility] LABCLIA [id number] [place] [address] Creatinine and Glomerular filtration rate.predicted panel (S/P/Bld) 31 mL/min/1.73m??? Low >=60 [facility] Comment on above: Order Comment: Anastacio bonilla Type: BLOOD SPECIMENOrdering Facility: [facility] Address: [address] [place] [address] Result Comment: Sugar mated Glomerular Filtration Rate [...] 2 4323-8 ####[facility] LABCLIA [id number] [place] [address] Glucose [Mass/Vol] 145 mg/dL High 74-99 [facility] Comment on above: Order Comment: Anastacio bonilla Type: BLOOD SPECIMENOrdering Facility: [facility] Address: [address] [place] [address] Result Comment: The [place] Diabetes Association (ADA) provides guidance for cutoff [...] Standards of Medical Care in Diabetes 2016, [place] Diabetes Association. Diabetes Care. 2016.39(Suppl 1). Performed By: #### 2 4323-8 ####[facility] LABCLIA [id number] [place] [address] Potassium [Moles/Vol] 4.5 mmol/L Normal 3.7-5.1 [facility] Comment on above: Order Comment: Speci men Type: BLOOD SPECIMENOrdering Facility: [facility] Address: [address] [place], [place] [address] Performed By: #### 2 4323-8 ####[facility] LABCLIA [id number] [place] [address] Protein [Mass/Vol] 7.7 g/dL Normal 6.3-8.0 [facility] Comment on above: Order Comment: Speci men Type: BLOOD SPECIMENOrdering Facility: [facility] Address: [address] [place], [place] [address] Performed By: #### 2 4323-8 ####[facility] LABCLIA [id number] [place] [address] Sodium [Moles/Vol] 138 mmol/L Normal 136-144 [facility] Comment on above: Order Comment: Speci men Type: BLOOD SPECIMENOrdering Facility: [facility] Address: [address] [place], [place] [address] Performed By: #### 2 4323-8 ####[facility] LABCLIA [id number] [place] [address] Urea nitrogen [Mass/Vol] 32 mg/dL High 7-21 [facility] Comment on above: Order Comment: Speci men Type: BLOOD SPECIMENOrdering Facility: [facility] Address: [address] [place], [place] [address] Performed By: #### 2 4323-8 ####[facility] LABCLIA [id number] [place] [address] 11-21-2023 36 US sent to [facility] Normal [facility] 11-12-2023 36 Pt calling back want ing to know what to do Normal [facility] 11-07-2023 36 10/30/2023: MD Odette Parker MA [...] this morning. Any recommendations? Please advise. Thanks. [facility] Ophthalmic OCT panelon 10-31 [facility] Right Eye Images reviewed [...] as well. Poor scan left eye (OS)> [facility] Radiology Study observation (narrative) [facility] Orders Onlyon 10-31-2023 Orders Only [id number] Wayne Barros Lazara 1945 Date Provider Department Center 10/31/2023 ODETTE MARK KASHIF Marie Family History Problem Relation Age of Onset Coronary artery disease Mother Coronary artery disease Father Coronary artery disease Sister Coronary artery disease Brother Family Status - Relation Status Age at Mother Father Sister Brother [facility] US Eye+Orbit - bilateralon 0 10-31-2023 Diagnosis: Cataract both eyes (OU) Testing Indication: Performed for preop measurements in the determination of an intraocular lens (IOL) for both eyes (OU) Test Reliability: Good quality both eyes (OU) Interpretation: Good measurements for intraocular lens (IOL) calculation purposes. Calculation made for both eyes (OU). [facility] Radiology Study observation (narrative) [facility] Office Visiton 10-16-2023 Follow-up visit [id number] Wayne Barros A 1945 Date Provider Department Center 10/16/2023 Kan-GISSELL SANDOVAL KASHIF Marie Family History Problem Relation Age of Onset Coronary artery disease Mother Coronary artery disease Father Coronary artery disease Sister Coronary artery disease Brother Family Status - Relation Status Age at Mother Father Sister Brother Level of Service:06287 MD OFFICE/OUTPATIENT ESTABLISHED MOD MDM 30 MIN Normal [facility] CBC W Auto Differential pane l (Bld)on 08-19-2023 Basophils (Bld) [#/Vol] 0.06 10*3/uL Normal <0.11 [facility] Comment on above: Order Comment: Speci men Type: BLOOD SPECIMENOrdering Facility: [facility] Address: [address] [place] [address] Performed By: #### 5 7021-8 ####[facility] LABCLIA [id number] [place] [address] Basophils/100 WBC (Bld) 0.6 % Normal [facility] Comment on above: Order Comment: Speci men Type: BLOOD SPECIMENOrdering Facility: [facility] Address: [address] [place] [address] Performed By: #### 5 7021-8 ####[facility] LABCLIA [id number] [place] [address] Differential cell count method Nom (Bld) Auto Normal [facility] Comment on above: Order Comment: Speci men Type: BLOOD SPECIMENOrdering Facility: [facility] Address: [address] [place] [address] Performed By: #### 5 7021-8 ####[facility] LABCLIA [id number] [place] [address] Eosinophils (Bld) [#/Vol] 0.16 10*3/uL Normal <0.46 [facility] Comment on above: Order Comment: Speci men Type: BLOOD SPECIMENOrdering Facility: [facility] Address: [address] [place] [address] Performed By: #### 5 7021-8 ####[facility] LABCLIA [id number] [place] [address] Eosinophils/100 WBC (Bld) 1.6 % Normal [facility] Comment on above: Order Comment: Speci men Type: BLOOD SPECIMENOrdering Facility: [facility] Address: [address] [place] [address] Performed By: #### 5 7021-8 ####[facility] LABCLIA [id number] [place] [address] Erythrocyte distribution width (RBC) [Ratio] 12.4 % Normal 11.5-15.0 [facility] Comment on above: Order Comment: Speci men Type: BLOOD SPECIMENOrdering Facility: [facility] Address: [address] [place] [address] Performed By: #### 5 7021-8 ####[facility] LABCLIA [id number] [place] [address] Hematocrit (Bld) [Volume fraction] 39.6 % Normal 36.0-46.0 [facility] Comment on above: Order Comment: Speci men Type: BLOOD SPECIMENOrdering Facility: [facility] Address: [address] [place] [address] Performed By: #### 5 7021-8 ####[facility] LABCLIA [id number] [place] [address] Hemoglobin (Bld) [Mass/Vol] 13.0 g/dL Normal 11.5-15.5 [facility] Comment on above: Order Comment: Speci men Type: BLOOD SPECIMENOrdering Facility: [facility] Address: [address] [place] [address] Performed By: #### 5 7021-8 ####[facility] LABCLIA [id number] [place] [address] Immature granulocytes (Bld) [#/Vol] 0.03 10*3/uL Normal <0.10 [facility] Comment on above: Order Comment: Speci men Type: BLOOD SPECIMENOrdering Facility: [facility] Address: [address] [place] [address] Performed By: #### 5 7021-8 ####[facility] LABCLIA [id number] [place] [address] Immature granulocytes/100 WBC (Bld) 0.3 % Normal [facility] Comment on above: Order Comment: Speci men Type: BLOOD SPECIMENOrdering Facility: [facility] Address: [address] [place] [address] Performed By: #### 5 7021-8 ####[facility] LABCLIA [id number] [place] [address] Lymphocytes (Bld) [#/Vol] 1.62 10*3/uL Normal 1.00-4.00 [facility] Comment on above: Order Comment: Speci men Type: BLOOD SPECIMENOrdering Facility: [facility] Address: [address] [place] [address] Performed By: #### 5 7021-8 ####[facility] LABCLIA [id number] [place] [address] Lymphocytes/100 WBC (Bld) 16.2 % Normal [facility] Comment on above: Order Comment: Speci men Type: BLOOD SPECIMENOrdering Facility: [facility] Address: [address] [place] [address] Performed By: #### 5 7021-8 ####[facility] LABCLIA [id number] [place] [address] MCH (RBC) [Entitic mass] 30.9 pg Normal 26.0-34.0 [facility] Comment on above: Order Comment: Speci men Type: BLOOD SPECIMENOrdering Facility: [facility] Address: [address] [place] [address] Performed By: #### 5 7021-8 ####[facility] LABIA [id number] [place] [address] MCHC (RBC) [Mass/Vol] 32.8 g/dL Normal 30.5-36.0 [facility] Comment on above: Order Comment: Speci men Type: BLOOD SPECIMENOrdering Facility: [facility] Address: [address] [place] [address] Performed By: #### 5 7021-8 ####[facility] LABCLIA [id number] [place] [address] MCV (RBC) [Entitic vol] 94.1 fL Normal 80.0-100.0 [facility] Comment on above: Order Comment: Speci men Type: BLOOD SPECIMENOrdering Facility: [facility] Address: [address] [place] [address] Performed By: #### 5 7021-8 ####[facility] LABCLIA [id number] [place] [address] Monocytes (Bld) [#/Vol] 1.04 10*3/uL High <0.87 [facility] Comment on above: Order Comment: Speci men Type: BLOOD SPECIMENOrdering Facility: [facility] Address: [address] [place] [address] Performed By: #### 5 7021-8 ####[facility] LABCLIA [id number] [place] [address] Monocytes/100 WBC (Bld) 10.4 % Normal [facility] Comment on above: Order Comment: Speci men Type: BLOOD SPECIMENOrdering Facility: [facility] Address: [address] [place] [address] Performed By: #### 5 7021-8 ####[facility] LABCLIA [id number] [place] [address] Neutrophils (Bld) [#/Vol] 7.12 10*3/uL Normal 1.45-7.50 [facility] Comment on above: Order Comment: Speci men Type: BLOOD SPECIMENOrdering Facility: [facility] Address: [address] [place] [address] Performed By: #### 5 7021-8 ####[facility] LABCLIA [id number] [place] [address] Neutrophils/100 WBC (Bld) 70.9 % Normal [facility] Comment on above: Order Comment: Speci men Type: BLOOD SPECIMENOrdering Facility: [facility] Address: [address] [place] [address] Performed By: #### 5 7021-8 ####[facility] LABCLIA [id number] [place] [address] Nucleated RBC (Bld) [#/Vol] 10*3/uL Normal <0.01 [facility] Comment on above: Order Comment: Speci men Type: BLOOD SPECIMENOrdering Facility: [facility] Address: [address] [place] [address] Performed By: #### 5 7021-8 ####[facility] LABCLIA [id number] [place] [address] Nucleated RBC/100 WBC (Bld) [Ratio] 0.0 /100 WBC Normal [facility] Comment on above: Order Comment: Speci men Type: BLOOD SPECIMENOrdering Facility: [facility] Address: [address] [place] [address] Performed By: #### 5 7021-8 ####[facility] LABCLIA [id number] [place] [address] Platelet mean volume (Bld) [Entitic vol] 10.7 fL Normal 9.0-12.7 [facility] Comment on above: Order Comment: Speci men Type: BLOOD SPECIMENOrdering Facility: [facility] Address: [address] [place] [address] Performed By: #### 5 7021-8 ####[facility] LABCLIA [id number] [place] [address] Platelets (Bld) [#/Vol] 252 10*3/uL Normal 150-400 [facility] Comment on above: Order Comment: Speci men Type: BLOOD SPECIMENOrdering Facility: [facility] Address: [address] [place] [address] Performed By: #### 5 7021-8 ####[facility] LABCLIA [id number] [place] [address] RBC (Bld) [#/Vol] 4.21 10*6/uL Normal 3.90-5.20 [facility] Comment on above: Order Comment: Speci men Type: BLOOD SPECIMENOrdering Facility: [facility] Address: [address] [place], [place] [address] Performed By: #### 5 7021-8 ####[facility] LABIA [id number] [place] [address] WBC (Bld) [#/Vol] 10.03 10*3/uL Normal 3.70-11.00 [facility] Comment on above: Order Comment: Speci men Type: BLOOD SPECIMENOrdering Facility: [facility] Address: [address] [place], [place] [address] Performed By: #### 5 7021-8 ####[facility] LABIA [id number] [place] [address] CNOVSPon 08-19-2023 CNOVSP Visit (SP) Office (H EMASA) -- ANDREW BARROS ([id number]) 1945 F Date Time Provider Department 08/19/23 1:00 PM SANDEEP LENZ During your visit today, we recorded the following information about you: Temperature Pulse Respiration Blood pressure 97.7 degrees 67/minute 16/minute 148/65 Weight Height 61.8 kg 1.626 m Sandeep Lenz MD 08/20/2023 7:07 AM Signed [facility] NAME: Barros, Andrew CLINIC NO.: [id number] DATE OF SERVICE: August 19, 2023 (Eduardo) [...] outer quadrant, invasive ductal carcinoma, ER postive, MD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 Mammograms at [facility] on 01/04/2021 Bi-Rads 2 benign. REVIEW [...] comfortably. N (more content not included)... [facility] (HEMASA) -- ANDREW BARROS ([id number]) 1945 F Date Time Provider Department 08/19/23 CLEMENTE SRIVASTAVA During your visit today, we recorded the following information about you: Clemente Srivastava RN 08/19/2023 2:47 PM Signed ----- Message from Sandeep Lenz MD sent at 08/19/2023 2:33 PM EST ----- Calcium janki normal. Kidney function is stable Clemente Srivastava RN 08/19/2023 2:47 PM Signed Pt aware of GO[employer]'s message. She denies any additional questions, needs or concerns at this time. Clemente Srivastava RN Allergies As of Date: 08/19/2023 Noted Allergy Reaction [id number] REDUCTASE INHIBIT*01/21/2018 16 - Unknown Comments: Other [...] Status:Closed by CLEMENTE SRIVASTAVA on 08/19/23 Normal [facility] Calcium.ionized [Moles/Vol]o n 08-19-2023 Calcium.ionized (Bld) [Mass/Vol] 1.20 mmol/L Normal 1.08-1.30 [facility] Comment on above: Order Comment: Speci men Type: BLOOD SPECIMENOrdering Facility: [facility] Address: [address] [address] Performed By: #### 1 995-0 ####[facility] LABCLIA [id number] [facility] [id number] [address] [place] Calcium.ionized adjusted to pH 7.4 (Bld) [Moles/Vol] 1.19 mmol/L Normal 1.08-1.30 [facility] Comment on above: Order Comment: Speci men Type: BLOOD SPECIMENOrdering Facility: [facility] Address: [address] [place] [address] Performed By: #### 1 995-0 ####[facility] LABCLIA [id number] [facility] [id number] [facility] Comprehensive metabolic 2000 panelon 08-19-2023 Albumin [Mass/Vol] 4.4 g/dL Normal 3.9-4.9 [facility] Comment on above: Order Comment: Speci men Type: BLOOD SPECIMENOrdering Facility: [facility] Address: [address] [place] [address] Performed By: #### 2 4323-8 ####[facility] LABCLIA [id number] [place] [address] ALP [Catalytic activity/Vol] 88 U/L Normal 34-123 [facility] Comment on above: Order Comment: Speci men Type: BLOOD SPECIMENOrdering Facility: [facility] Address: [address] [place] [address] Performed By: #### 2 4323-8 ####[facility] LABCLIA [id number] [place] [address] ALT [Catalytic activity/Vol] 8 U/L Normal 7-38 [facility] Comment on above: Order Comment: Speci men Type: BLOOD SPECIMENOrdering Facility: [facility] Address: [address] [place] [address] Performed By: #### 2 4323-8 ####[facility] LABCLIA [id number] [place] [address] Anion gap [Moles/Vol] 11 mmol/L Normal 9-18 [facility] Comment on above: Order Comment: Speci men Type: BLOOD SPECIMENOrdering Facility: [facility] Address: [address] [place] [address] Performed By: #### 2 4323-8 ####[facility] LABCLIA [id number] [place] [address] AST [Catalytic activity/Vol] 13 U/L Normal 13-35 [facility] Comment on above: Order Comment: Speci men Type: BLOOD SPECIMENOrdering Facility: [facility] Address: [address] [place] [address] Performed By: #### 2 4323-8 ####[facility] LABCLIA [id number] [place] [address] Bilirubin [Mass/Vol] 0.3 mg/dL Normal 0.2-1.3 [facility] Comment on above: Order Comment: Speci men Type: BLOOD SPECIMENOrdering Facility: [facility] Address: [address] [place] [address] Performed By: #### 2 4323-8 ####[facility] LABCLIA [id number] [place] [address] Calcium [Mass/Vol] 9.6 mg/dL Normal 8.5-10.2 [facility] Comment on above: Order Comment: Speci men Type: BLOOD SPECIMENOrdering Facility: [facility] Address: [address] [place] [address] Performed By: #### 2 4323-8 ####[facility] LABCLIA [id number] [place] [address] Chloride [Moles/Vol] 98 mmol/L Normal 97-105 [facility] Comment on above: Order Comment: Speci men Type: BLOOD SPECIMENOrdering Facility: [facility] Address: [address] [place] [address] Performed By: #### 2 4323-8 ####[facility] LABCLIA [id number] [place] [address] CO2 [Moles/Vol] 30 mmol/L Normal 22-30 [facility] Comment on above: Order Comment: Speci men Type: BLOOD SPECIMENOrdering Facility: [facility] Address: [address] [place] [address] Performed By: #### 2 4323-8 ####[facility] LABCLIA [id number] [place] [address] Creatinine [Mass/Vol] 1.27 mg/dL High 0.58-0.96 [facility] Comment on above: Order Comment: Speci men Type: BLOOD SPECIMENOrdering Facility: [facility] Address: [address] [place] [address] Performed By: #### 2 4323-8 ####[facility] LABCLIA [id number] [place] [address] Creatinine and Glomerular filtration rate.predicted panel (S/P/Bld) 43 mL/min/1.73m??? Low >=60 [facility] Comment on above: Order Comment: Speci men Type: BLOOD SPECIMENOrdering Facility: [facility] Address: [address] [place] [address] Result Comment: Sugar mated Glomerular Filtration Rate [...] 2 4323-8 ####[facility] LABCLIA [id number] [place] [address] Glucose [Mass/Vol] 94 mg/dL Normal 74-99 [facility] Comment on above: Order Comment: Sosai men Type: BLOOD SPECIMENOrdering Facility: [facility] Address: [address] [place] [address] Result Comment: The [place] Diabetes Association (ADA) provides guidance for cutoff [...] Standards of Medical Care in Diabetes 2016, [place] Diabetes [employer]. Diabetes Care. 2016.39(Suppl 1). Performed By: #### 2 4323-8 ####[facility] LABCLIA [id number] [place] [address] Potassium [Moles/Vol] 3.7 mmol/L Normal 3.7-5.1 [facility] Comment on above: Order Comment: Speci men Type: BLOOD SPECIMENOrdering Facility: [facility] Address: [address] [place] [address] Performed By: #### 2 4323-8 ####[facility] LABCLIA [id number] [place] [address] Protein [Mass/Vol] 7.3 g/dL Normal 6.3-8.0 [facility] Comment on above: Order Comment: Speci men Type: BLOOD SPECIMENOrdering Facility: [facility] Address: [address] [place] [address] Performed By: #### 2 4323-8 ####[facility] LABCLIA [id number] [place] [address] Sodium [Moles/Vol] 139 mmol/L Normal 136-144 [facility] Comment on above: Order Comment: Speci men Type: BLOOD SPECIMENOrdering Facility: [facility] Address: [address] [place] [address] Performed By: #### 2 4323-8 ####[facility] LABCLIA [id number] [place] [address] Urea nitrogen [Mass/Vol] 28 mg/dL High 7-21 [facility] Comment on above: Order Comment: Speci men Type: BLOOD SPECIMENOrdering Facility: [facility] Address: [address] [place] [address] Performed By: #### 2 4323-8 ####[facility] LABCLIA [id number] [place] [address] CBC W Auto Differential pane l (Bld)on 07-02-2023 Basophils (Bld) [#/Vol] 0.06 10*3/uL Normal <0.11 [facility] Comment on above: Order Comment: Speci men Type: BLOOD SPECIMENOrdering Facility: [facility] Address: [address] [place] [address] Performed By: #### 5 7021-8 ####[facility] LABCLIA [id number] [place] [address] Basophils/100 WBC (Bld) 0.6 % Normal [facility] Comment on above: Order Comment: Speci men Type: BLOOD SPECIMENOrdering Facility: [facility] Address: [address] [place] [address] Performed By: #### 5 7021-8 ####[facility] LABCLIA [id number] [place] [address] Differential cell count method Nom (Bld) Auto Normal [facility] Comment on above: Order Comment: Speci men Type: BLOOD SPECIMENOrdering Facility: [facility] Address: [address] [place] [address] Performed By: #### 5 7021-8 ####[facility] LABCLIA [id number] [place] [address] Eosinophils (Bld) [#/Vol] 0.14 10*3/uL Normal <0.46 [facility] Comment on above: Order Comment: Speci men Type: BLOOD SPECIMENOrdering Facility: [facility] Address: [address] [place] [address] Performed By: #### 5 7021-8 ####[facility] LABCLIA [id number] [place] [address] Eosinophils/100 WBC (Bld) 1.5 % Normal [facility] Comment on above: Order Comment: Speci men Type: BLOOD SPECIMENOrdering Facility: [facility] Address: [address] [place] [address] Performed By: #### 5 7021-8 ####[facility] LABCLIA [id number] [place] [address] Erythrocyte distribution width (RBC) [Ratio] 12.5 % Normal 11.5-15.0 [facility] Comment on above: Order Comment: Speci men Type: BLOOD SPECIMENOrdering Facility: [facility] Address: [address] [place] [address] Performed By: #### 5 7021-8 ####[facility] LABCLIA [id number] [place] [address] Hematocrit (Bld) [Volume fraction] 40.6 % Normal 36.0-46.0 [facility] Comment on above: Order Comment: Speci men Type: BLOOD SPECIMENOrdering Facility: [facility] Address: [address] [place] [address] Performed By: #### 5 7021-8 ####[facility] LABCLIA [id number] [place] [address] Hemoglobin (Bld) [Mass/Vol] 13.1 g/dL Normal 11.5-15.5 [facility] Comment on above: Order Comment: Speci men Type: BLOOD SPECIMENOrdering Facility: [facility] Address: [address] [place] [address] Performed By: #### 5 7021-8 ####[facility] LABCLIA [id number] [place] [address] Immature granulocytes (Bld) [#/Vol] 0.03 10*3/uL Normal <0.10 [facility] Comment on above: Order Comment: Speci men Type: BLOOD SPECIMENOrdering Facility: [facility] Address: [address] [place] [address] Performed By: #### 5 7021-8 ####[facility] LABCLIA [id number] [place] [address] Immature granulocytes/100 WBC (Bld) 0.3 % Normal [facility] Comment on above: Order Comment: Speci men Type: BLOOD SPECIMENOrdering Facility: [facility] Address: [address] [place] [address] Performed By: #### 5 7021-8 ####[facility] LABCLIA [id number] [place] [address] Lymphocytes (Bld) [#/Vol] 1.44 10*3/uL Normal 1.00-4.00 [facility] Comment on above: Order Comment: Speci men Type: BLOOD SPECIMENOrdering Facility: [facility] Address: [address] [place] [address] Performed By: #### 5 7021-8 ####[facility] LABCLIA [id number] [place] [address] Lymphocytes/100 WBC (Bld) 15.2 % Normal [facility] Comment on above: Order Comment: Speci men Type: BLOOD SPECIMENOrdering Facility: [facility] Address: [address] [place] [address] Performed By: #### 5 7021-8 ####[facility] LABCLIA [id number] [place] [address] MCH (RBC) [Entitic mass] 31.2 pg Normal 26.0-34.0 [facility] Comment on above: Order Comment: Speci men Type: BLOOD SPECIMENOrdering Facility: [facility] Address: [address] [place] [address] Performed By: #### 5 7021-8 ####[facility] LABIA [id number] [place] [address] MCHC (RBC) [Mass/Vol] 32.3 g/dL Normal 30.5-36.0 [facility] Comment on above: Order Comment: Speci men Type: BLOOD SPECIMENOrdering Facility: [facility] Address: [address] [place] [address] Performed By: #### 5 7021-8 ####[facility] LABCLIA [id number] [place] [address] MCV (RBC) [Entitic vol] 96.7 fL Normal 80.0-100.0 [facility] Comment on above: Order Comment: Speci men Type: BLOOD SPECIMENOrdering Facility: [facility] Address: [address] [place] [address] Performed By: #### 5 7021-8 ####[facility] LABCLIA [id number] [place] [address] Monocytes (Bld) [#/Vol] 0.82 10*3/uL Normal <0.87 [facility] Comment on above: Order Comment: Speci men Type: BLOOD SPECIMENOrdering Facility: [facility] Address: [address] [place] [address] Performed By: #### 5 7021-8 ####[facility] LABCLIA [id number] [place] [address] Monocytes/100 WBC (Bld) 8.7 % Normal [facility] Comment on above: Order Comment: Speci men Type: BLOOD SPECIMENOrdering Facility: [facility] Address: [address] [place] [address] Performed By: #### 5 7021-8 ####[facility] LABCLIA [id number] [place] [address] Neutrophils (Bld) [#/Vol] 6.97 10*3/uL Normal 1.45-7.50 [facility] Comment on above: Order Comment: Speci men Type: BLOOD SPECIMENOrdering Facility: [facility] Address: [address] [place] [address] Performed By: #### 5 7021-8 ####[facility] LABCLIA [id number] [place] [address] Neutrophils/100 WBC (Bld) 73.7 % Normal [facility] Comment on above: Order Comment: Speci men Type: BLOOD SPECIMENOrdering Facility: [facility] Address: [address] [place] [address] Performed By: #### 5 7021-8 ####[facility] LABCLIA [id number] [place] [address] Nucleated RBC (Bld) [#/Vol] 10*3/uL Normal <0.01 [facility] Comment on above: Order Comment: Speci men Type: BLOOD SPECIMENOrdering Facility: [facility] Address: [address] [place] [address] Performed By: #### 5 7021-8 ####[facility] LABCLIA [id number] [place] [address] Nucleated RBC/100 WBC (Bld) [Ratio] 0.0 /100 WBC Normal [facility] Comment on above: Order Comment: Speci men Type: BLOOD SPECIMENOrdering Facility: [facility] Address: [address] [place] [address] Performed By: #### 5 7021-8 ####[facility] LABCLIA [id number] [place] [address] Platelet mean volume (Bld) [Entitic vol] 11.0 fL Normal 9.0-12.7 [facility] Comment on above: Order Comment: Speci men Type: BLOOD SPECIMENOrdering Facility: [facility] Address: [address] [place] [address] Performed By: #### 5 7021-8 ####[facility] LABCLIA [id number] [place] [address] Platelets (Bld) [#/Vol] 238 10*3/uL Normal 150-400 [facility] Comment on above: Order Comment: Speci men Type: BLOOD SPECIMENOrdering Facility: [facility] Address: [address] [place] [address] Performed By: #### 5 7021-8 ####[facility] LABCLIA [id number] [place] [address] RBC (Bld) [#/Vol] 4.20 10*6/uL Normal 3.90-5.20 [facility] Comment on above: Order Comment: Speci men Type: BLOOD SPECIMENOrdering Facility: [facility] Address: [address] [place] [address] Performed By: #### 5 7021-8 ####[facility] LABCLIA [id number] [place] [address] WBC (Bld) [#/Vol] 9.46 10*3/uL Normal 3.70-11.00 [facility] Comment on above: Order Comment: Speci men Type: BLOOD SPECIMENOrdering Facility: [facility] Address: [address] [place] [address] Performed By: #### 5 7021-8 ####[facility] LABCLIA [id number] [place] [address] Calcium.ionized [Moles/Vol]o n 07-02-2023 Calcium.ionized (Bld) [Mass/Vol] 1.23 mmol/L Normal 1.08-1.30 [facility] Comment on above: Order Comment: Speci men Type: BLOOD SPECIMENOrdering Facility: [facility] Address: [address] [place] [address] Performed By: #### 1 995-0 ####[facility] LABCLIA [id number] [facility] [id number] [address] [place] Calcium.ionized adjusted to pH 7.4 (Bld) [Moles/Vol] 1.20 mmol/L Normal 1.08-1.30 [facility] Comment on above: Order Comment: Speci men Type: BLOOD SPECIMENOrdering Facility: [facility] Address: [address] [place] [address] Performed By: #### 1 995-0 ####[facility] LABCLIA [id number] [facility] [id number] [id number] [place] Comprehensive metabolic 2000 panelon 07-02-2023 Albumin [Mass/Vol] 4.5 g/dL Normal 3.9-4.9 [facility] Comment on above: Order Comment: Speci men Type: BLOOD SPECIMENOrdering Facility: [facility] Address: [address] [place] [address] Performed By: #### 2 4323-8 ####[facility] LABCLIA [id number] [place] [address] ALP [Catalytic activity/Vol] 89 U/L Normal 34-123 [facility] Comment on above: Order Comment: Speci men Type: BLOOD SPECIMENOrdering Facility: [facility] Address: [address] [place] [address] Performed By: #### 2 4323-8 ####[facility] LABCLIA [id number] [place] [address] ALT [Catalytic activity/Vol] 10 U/L Normal 7-38 [facility] Comment on above: Order Comment: Speci men Type: BLOOD SPECIMENOrdering Facility: [facility] Address: [address] [place] [address] Performed By: #### 2 4323-8 ####[facility] LABCLIA [id number] [place] [address] Anion gap [Moles/Vol] 15 mmol/L Normal 9-18 [facility] Comment on above: Order Comment: Speci men Type: BLOOD SPECIMENOrdering Facility: [facility] Address: [address] [place] [address] Performed By: #### 2 4323-8 ####[facility] LABCLIA [id number] [place] [address] AST [Catalytic activity/Vol] 14 U/L Normal 13-35 [facility] Comment on above: Order Comment: Speci men Type: BLOOD SPECIMENOrdering Facility: [facility] Address: [address] [place] [address] Performed By: #### 2 4323-8 ####[facility] LABCLIA [id number] [place] [address] Bilirubin [Mass/Vol] 0.4 mg/dL Normal 0.2-1.3 [facility] Comment on above: Order Comment: Speci men Type: BLOOD SPECIMENOrdering Facility: [facility] Address: [address] [place] [address] Performed By: #### 2 4323-8 ####[facility] LABCLIA [id number] [place] [address] Calcium [Mass/Vol] 9.9 mg/dL Normal 8.5-10.2 [facility] Comment on above: Order Comment: Speci men Type: BLOOD SPECIMENOrdering Facility: [facility] Address: [address] [place] [address] Performed By: #### 2 4323-8 ####[facility] LABCLIA [id number] [place] [address] Chloride [Moles/Vol] 99 mmol/L Normal 97-105 [facility] Comment on above: Order Comment: Speci men Type: BLOOD SPECIMENOrdering Facility: [facility] Address: [address] [place] [address] Performed By: #### 2 4323-8 ####[facility] LABCLIA [id number] [place] [address] CO2 [Moles/Vol] 28 mmol/L Normal 22-30 [facility] Comment on above: Order Comment: Speci men Type: BLOOD SPECIMENOrdering Facility: [facility] Address: [address] [place] [address] Performed By: #### 2 4323-8 ####[facility] LABCLIA [id number] [place] [address] Creatinine [Mass/Vol] 1.31 mg/dL High 0.58-0.96 [facility] Comment on above: Order Comment: Speci men Type: BLOOD SPECIMENOrdering Facility: [facility] Address: [address] [place] [address] Performed By: #### 2 4323-8 ####[facility] LABCLIA [id number] [place] [address] Creatinine and Glomerular filtration rate.predicted panel (S/P/Bld) 42 mL/min/1.73m??? Low >=60 [facility] Comment on above: Order Comment: Anastacio men Type: BLOOD SPECIMENOrdering Facility: [facility] Address: [address] [place] [address] Result Comment: Sugar mated Glomerular Filtration Rate [...] 2 4323-8 ####[facility] LABCLIA [id number] [place] [address] Glucose [Mass/Vol] 183 mg/dL High 74-99 [facility] Comment on above: Order Comment: Anastacio bonilla Type: BLOOD SPECIMENOrdering Facility: [facility] Address: [address] [place] [address] Result Comment: The [place] [employer] Association (ADA) provides guidance for cutoff [...] Standards of Medical Care in Diabetes 2016, [place] [employer]. Diabetes Care. 2016.39(Suppl 1). Performed By: #### 2 4323-8 ####[facility] LABCLIA [id number] [place] [address] Potassium [Moles/Vol] 3.9 mmol/L Normal 3.7-5.1 [facility] Comment on above: Order Comment: Speci men Type: BLOOD SPECIMENOrdering Facility: [facility] Address: [address] [place] [address] Performed By: #### 2 4323-8 ####[facility] LABCLIA [id number] [place] [address] Protein [Mass/Vol] 7.2 g/dL Normal 6.3-8.0 [facility] Comment on above: Order Comment: Speci men Type: BLOOD SPECIMENOrdering Facility: [facility] Address: [address] [place] [address] Performed By: #### 2 4323-8 ####[facility] LABIA [id number] [place] [address] Sodium [Moles/Vol] 142 mmol/L Normal 136-144 [facility] Comment on above: Order Comment: Speci men Type: BLOOD SPECIMENOrdering Facility: [facility] Address: [address] [place] [address] Performed By: #### 2 4323-8 ####[facility] LABCLIA [id number] [place] [address] Urea nitrogen [Mass/Vol] 29 mg/dL High 7-21 [facility] Comment on above: Order Comment: Speci men Type: BLOOD SPECIMENOrdering Facility: [facility] Address: [address] [place] [address] Performed By: #### 2 4323-8 ####[facility] LABIA [id number] [place] [address] CBC W Auto Differential pane l (Bld)on 05-21-2023 Basophils (Bld) [#/Vol] 0.07 10*3/uL <0.11 k/uL [facility] Basophils/100 WBC (Bld) 0.6 % [facility] Differential cell count method Nom (Bld) Auto [facility] Eosinophils (Bld) [#/Vol] 0.17 10*3/uL <0.46 k/uL [facility] Eosinophils/100 WBC (Bld) 1.6 % [facility] Erythrocyte distribution width (RBC) [Ratio] 12.8 % 11.5 - 15.0 % [facility] Hematocrit (Bld) [Volume fraction] 38.7 % 36.0 - 46.0 % [facility] Hemoglobin (Bld) [Mass/Vol] 13.0 g/dL 11.5 - 15.5 g/dL [facility] Immature granulocytes (Bld) [#/Vol] 0.04 10*3/uL <0.10 k/uL [facility] Immature granulocytes/100 WBC (Bld) 0.4 % [facility] Lymphocytes (Bld) [#/Vol] 1.74 10*3/uL 1.00 - 4.00 k/uL [facility] Lymphocytes/100 WBC (Bld) 16.0 % [facility] MCH (RBC) [Entitic mass] 31.7 pg 26.0 - 34.0 pg [facility] MCHC (RBC) [Mass/Vol] 33.6 g/dL 30.5 - 36.0 g/dL [facility] MCV (RBC) [Entitic vol] 94.4 fL 80.0 - 100.0 fL [facility] Monocytes (Bld) [#/Vol] 0.94 10*3/uL High <0.87 k/uL [facility] Monocytes/100 WBC (Bld) 8.6 % [facility] Neutrophils (Bld) [#/Vol] 7.94 10*3/uL High 1.45 - 7.50 k/uL [facility] Neutrophils/100 WBC (Bld) 72.8 % [facility] Nucleated RBC (Bld) [#/Vol] <0.01 k/uL [facility] Nucleated RBC/100 WBC (Bld) [Ratio] 0.0 /100 WBC [facility] Platelet mean volume (Bld) [Entitic vol] 12.1 fL 9.0 - 12.7 fL [facility] Platelets (Bld) [#/Vol] 293 10*3/uL 150 - 400 k/uL [facility] RBC (Bld) [#/Vol] 4.10 10*6/uL 3.90 - 5.2 0 m/uL [facility] WBC (Bld) [#/Vol] 10.90 10*3/uL 3.70 - 11.00 k/uL [facility] CNPNon 05-21-2023 CNPN Telephone (HEMAS[facility]) -- ANDREW BARROS ([id number]) 1945 F Date Time Provider Department 05/21/23 [...] As of Date: 05/21/2023 Noted Allergy Reaction [id number] REDUCTASE INHIBIT*01/21/2018 16 - Unknown Comments: Other [...] Status:Closed by CLEMENTE SRIVASTAVA on 05/21/23 Normal [facility] Comprehensive metabolic 2000 panelon 05-21-2023 Albumin [Mass/Vol] 4.6 g/dL 3.9 - 4.9 g/dL [facility] ALP [Catalytic activity/Vol] 96 U/L 34 - 123 U/L [facility] ALT [Catalytic activity/Vol] 13 U/L 7 - 38 U/L [facility] Anion gap [Moles/Vol] 13 mmol/L 9 - 18 mmol/L [facility] AST [Catalytic activity/Vol] 18 U/L 13 - 35 U/L [facility] Bilirubin [Mass/Vol] 0.3 mg/dL 0.2 - 1 .3 mg/dL [facility] Calcium [Mass/Vol] 10.0 mg/dL 8.5 - 10. 2 mg/dL [facility] Chloride [Moles/Vol] 101 mmol/L 97 - 10 5 mmol/L [facility] CO2 [Moles/Vol] 26 mmol/L 22 - 30 mmol/L [facility] Creatinine [Mass/Vol] 1.32 mg/dL High 0.58 - 0.96 mg/dL [facility] Estimated Glomerular Filtration Rate 41 mL/min/1.73m Low >=60 mL/min/1.73 m [facility] Glucose [Mass/Vol] 119 mg/dL High 74 - 99 mg/dL [facility] Potassium [Moles/Vol] 4.1 mmol/L 3.7 - 5.1 mmol/L [facility] Protein [Mass/Vol] 7.6 g/dL 6.3 - 8.0 g/dL [facility] Sodium [Moles/Vol] 140 mmol/L 136 - 144 mmol/L [facility] Urea nitrogen [Mass/Vol] 32 mg/dL High 7 - 21 mg/dL [facility] CBC W Auto Differential pane l (Bld)on 05-20-2023 Basophils (Bld) [#/Vol] 0.07 10*3/uL Normal <0.11 [facility] Comment on above: Order Comment: Speci men Type: BLOOD SPECIMENOrdering Facility: [facility] Address: [address] [place] [address] Performed By: #### 5 7021-8 ####[facility] LABCLIA [id number] [place] [address] Basophils/100 WBC (Bld) 0.6 % Normal [facility] Comment on above: Order Comment: Speci men Type: BLOOD SPECIMENOrdering Facility: [facility] Address: [address] [place] [address] Performed By: #### 5 7021-8 ####[facility] LABCLIA [id number] [place] [address] Differential cell count method Nom (Bld) Auto Normal [facility] Comment on above: Order Comment: Speci men Type: BLOOD SPECIMENOrdering Facility: [facility] Address: [address] [place] [address] Performed By: #### 5 7021-8 ####[facility] LABCLIA [id number] [place] [address] Eosinophils (Bld) [#/Vol] 0.17 10*3/uL Normal <0.46 [facility] Comment on above: Order Comment: Speci men Type: BLOOD SPECIMENOrdering Facility: [facility] Address: [address] [place] [address] Performed By: #### 5 7021-8 ####[facility] LABCLIA [id number] [place] [address] Eosinophils/100 WBC (Bld) 1.6 % Normal [facility] Comment on above: Order Comment: Speci men Type: BLOOD SPECIMENOrdering Facility: [facility] Address: [address] [place] [address] Performed By: #### 5 7021-8 ####[facility] LABCLIA [id number] [place] [id number] Erythrocyte distribution width (RBC) [Ratio] 12.8 % Normal 11.5-15.0 [facility] Comment on above: Order Comment: Speci men Type: BLOOD SPECIMENOrdering Facility: [facility] Address: [address] [place] [address] Performed By: #### 5 7021-8 ####[facility] LABCLIA [id number] [place] [address] Hematocrit (Bld) [Volume fraction] 38.7 % Normal 36.0-46.0 [facility] Comment on above: Order Comment: Speci men Type: BLOOD SPECIMENOrdering Facility: [facility] Address: [address] [place] [address] Performed By: #### 5 7021-8 ####[facility] LABCLIA [id number] [place] [address] Hemoglobin (Bld) [Mass/Vol] 13.0 g/dL Normal 11.5-15.5 [facility] Comment on above: Order Comment: Speci men Type: BLOOD SPECIMENOrdering Facility: [facility] Address: [address] [place] [address] Performed By: #### 5 7021-8 ####[facility] LABCLIA [id number] [place] [address] Immature granulocytes (Bld) [#/Vol] 0.04 10*3/uL Normal <0.10 [facility] Comment on above: Order Comment: Speci men Type: BLOOD SPECIMENOrdering Facility: [facility] Address: [address] [place] [address] Performed By: #### 5 7021-8 ####[facility] LABCLIA [id number] [place] [address] Immature granulocytes/100 WBC (Bld) 0.4 % Normal [facility] Comment on above: Order Comment: Speci men Type: BLOOD SPECIMENOrdering Facility: [facility] Address: [address] [place] [address] Performed By: #### 5 7021-8 ####[facility] LABCLIA [id number] [place] [address] Lymphocytes (Bld) [#/Vol] 1.74 10*3/uL Normal 1.00-4.00 [facility] Comment on above: Order Comment: Speci men Type: BLOOD SPECIMENOrdering Facility: [facility] Address: [address] [place] [address] Performed By: #### 5 7021-8 ####[facility] LABCLIA [id number] [place] [address] Lymphocytes/100 WBC (Bld) 16.0 % Normal [facility] Comment on above: Order Comment: Speci men Type: BLOOD SPECIMENOrdering Facility: [facility] Address: [address] [place], [place] [address] Performed By: #### 5 7021-8 ####[facility] LABCLIA [id number] [place] [address] MCH (RBC) [Entitic mass] 31.7 pg Normal 26.0-34.0 [facility] Comment on above: Order Comment: Speci men Type: BLOOD SPECIMENOrdering Facility: [facility] Address: [address] [place] [address] Performed By: #### 5 7021-8 ####[facility] LABCLIA [id number] [place] [address] MCHC (RBC) [Mass/Vol] 33.6 g/dL Normal 30.5-36.0 [facility] Comment on above: Order Comment: Speci men Type: BLOOD SPECIMENOrdering Facility: [facility] Address: [address] [place] [address] Performed By: #### 5 7021-8 ####[facility] LABIA [id number] [place] [address] MCV (RBC) [Entitic vol] 94.4 fL Normal 80.0-100.0 [facility] Comment on above: Order Comment: Speci men Type: BLOOD SPECIMENOrdering Facility: [facility] Address: [address] [place] [address] Performed By: #### 5 7021-8 ####[facility] LABCLIA [id number] [place] [address] Monocytes (Bld) [#/Vol] 0.94 10*3/uL High <0.87 [facility] Comment on above: Order Comment: Speci men Type: BLOOD SPECIMENOrdering Facility: [facility] Address: [address] [place] [address] Performed By: #### 5 7021-8 ####[facility] LABCLIA [id number] [place] [address] Monocytes/100 WBC (Bld) 8.6 % Normal [facility] Comment on above: Order Comment: Speci men Type: BLOOD SPECIMENOrdering Facility: [facility] Address: [address] [place] [address] Performed By: #### 5 7021-8 ####[facility] LABCLIA [id number] [place] [address] Neutrophils (Bld) [#/Vol] 7.94 10*3/uL High 1.45-7.50 [facility] Comment on above: Order Comment: Speci men Type: BLOOD SPECIMENOrdering Facility: [facility] Address: [address] [place] [address] Performed By: #### 5 7021-8 ####[facility] LABCLIA [id number] [place] [address] Neutrophils/100 WBC (Bld) 72.8 % Normal [facility] Comment on above: Order Comment: Speci men Type: BLOOD SPECIMENOrdering Facility: [facility] Address: [address] [place] [address] Performed By: #### 5 7021-8 ####[facility] LABCLIA [id number] [place] [address] Nucleated RBC (Bld) [#/Vol] 10*3/uL Normal <0.01 [facility] Comment on above: Order Comment: Speci men Type: BLOOD SPECIMENOrdering Facility: [facility] Address: [address] [place] [address] Performed By: #### 5 7021-8 ####[facility] LABIA [id number] [place] [address] Nucleated RBC/100 WBC (Bld) [Ratio] 0.0 /100 WBC Normal [facility] Comment on above: Order Comment: Speci men Type: BLOOD SPECIMENOrdering Facility: [facility] Address: [address] [place] [address] Performed By: #### 5 7021-8 ####[facility] LABCLIA [id number] [place] [address] Platelet mean volume (Bld) [Entitic vol] 12.1 fL Normal 9.0-12.7 [facility] Comment on above: Order Comment: Speci men Type: BLOOD SPECIMENOrdering Facility: [facility] Address: [address] [place] [address] Performed By: #### 5 7021-8 ####[facility] LABCLIA [id number] [place] [address] Platelets (Bld) [#/Vol] 293 10*3/uL Normal 150-400 [facility] Comment on above: Order Comment: Speci men Type: BLOOD SPECIMENOrdering Facility: [facility] Address: [address] [place] [address] Performed By: #### 5 7021-8 ####[facility] LABIA [id number] [place] [address] RBC (Bld) [#/Vol] 4.10 10*6/uL Normal 3.90-5.20 [facility] Comment on above: Order Comment: Speci men Type: BLOOD SPECIMENOrdering Facility: [facility] Address: [address] [place] [address] Performed By: #### 5 7021-8 ####[facility] LABIA [id number] [place] [address] WBC (Bld) [#/Vol] 10.90 10*3/uL Normal 3.70-11.00 [facility] Comment on above: Order Comment: Speci men Type: BLOOD SPECIMENOrdering Facility: [facility] Address: [address] [place] [address] Performed By: #### 5 7021-8 ####[facility] LABIA [id number] [place] [address] CNOVSPon 05-20-2023 CNOVSP Visit (SP) Office ([facility]) -- ANDREW BARROS ([id number]) 1945 F Date Time Provider Department 05/20/23 3:00 PM SANDEEP LENZ During your visit today, we recorded the following information about you: Temperature Pulse Respiration Blood pressure 97.8 degrees 68/minute 16/minute 168/72 Weight Height 58.9 kg 1.626 m Sandeep Lenz MD 05/30/2023 5:58 AM Signed Sult nephrology NAME: Andrew Barros CLINIC NO.: [id number] DATE OF SERVICE: May 20, 2023 (Eduardo) [...] outer quadrant, invasive ductal carcinoma, ER postive, MD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 Mammograms at [facility] on 01/04/2021 Bi-Rads 2 benign. REVIEW [...] wounds or petechiae. ALLERGIES: ALLERGIES Allergen Reactions Ayoszrl-Gvm-Uxy Red* Unknown Other reaction(s): AOF MEDICATIONS: anastrozole [...] Take 500 (more content not included)... Normal [facility] 05-20-2023 [facility] Telephone ([facility]) -- ANDREW BARROS ([id number]) 1945 F Date Time Provider Department 05/20/23 SANDEEP LENZ [facility] During your visit today, we recorded the following information about you: Samina Anderson 05/20/2023 4:06 PM Signed Refer to nephrology for hypercalcemia and kidney failure Lisa/Yan: Can you please refer patient and follow up? Thanks! Jennifer Christensen 05/22/2023 8:46 AM Signed Lisa: Information ready for you. Aileen Cat 05/30/2023 7:49 AM Signed Records faxed to Nephrology. Jennifer Aviles 06/05/2023 10:00 AM Signed Called spoke with Deepika at Nephrology office. She states she has not received this referral and has asked us to please refax it. LISA: Please refax this referral to Nephrology office. Thank You. Jennifer Covington [facility] 06/05/2023 10:36 AM Signed Records re-faxed to Nephrology. Kira CovingtonJennifer 06/06/2023 2:32 PM Signed I called Neph office left message for their office we did re-fax this referral and I was calling to check make sure they received it and see if patient has been scheduled yet. I asked their office to call us back with status of this referral. Jennifer Covington Jennifer 06/10/2023 12:54 PM Signed Called Nephrology office spoke with Paola. She states they did receive this referral and have patient scheduled to see Dr Hartman on 07/03 @ 3:00. Jennifer Covington Allergies As of Date: 05/20/2023 Noted Allergy Reaction CDSJPNI-RWB-JVX REDUCTASE INHIBIT*01/21/2018 16 - Unknown Comments: Other reaction(s): AOF Date Reviewed: 05/20/2023 Reviewed by: Arabella Cotter MA - Fully Assessed Reason for Visit: Referral Information [7844] Cmt: Nephrology Prescriptions as of 06/10/2023 - [...] Status:Closed by SAMINA ANDERSON on 06/10/23 Normal [facility] Calcium.ionized [Moles/Vol]o n 05-20-2023 Calcium.ionized (Bld) [Mass/Vol] 1.23 mmol/L 1.08 - 1.30 mmol/L [facility] Calcium.ionized adjusted to pH 7.4 (Bld) [Moles/Vol] 1.20 mmol/L 1.08 - 1.30 mmol/L [facility] Calcium.ionized (Bld) [Mass/Vol] 1.23 mmol/L Normal 1.08-1.30 [facility] Comment on above: Order Comment: Speci men Type: BLOOD SPECIMENOrdering Facility: [facility] Address: [address] [id number] Performed By: #### 1 995-0 ####[facility] LABCLIA [id number] [place] [address] [place] Calcium.ionized adjusted to pH 7.4 (Bld) [Moles/Vol] 1.20 mmol/L Normal 1.08-1.30 [facility] Comment on above: Order Comment: Speci men Type: BLOOD SPECIMENOrdering Facility: [facility] Address: [address] [address] Performed By: #### 1 995-0 ####[facility] LABCLIA [id number] [address] SOUTHSIDEMango [id number] [facility] Comprehensive metabolic 2000 panelon 05-20-2023 Albumin [Mass/Vol] 4.6 g/dL Normal 3.9-4.9 [facility] Comment on above: Order Comment: Speci men Type: BLOOD SPECIMENOrdering Facility: [facility] Address: [address] [address] Performed By: #### 2 4323-8 ####[facility] LABCLIA [id number] [place] [address] ALP [Catalytic activity/Vol] 96 U/L Normal 34-123 [facility] Comment on above: Order Comment: Speci men Type: BLOOD SPECIMENOrdering Facility: [facility] Address: [address] [address] Performed By: #### 2 4323-8 ####[facility] LABCLIA [id number] [place] [address] ALT [Catalytic activity/Vol] 13 U/L Normal 7-38 [facility] Comment on above: Order Comment: Speci men Type: BLOOD SPECIMENOrdering Facility: [facility] Address: [address] [address] Performed By: #### 2 4323-8 ####[facility] LABCLIA [id number] [place] [address] Anion gap [Moles/Vol] 13 mmol/L Normal 9-18 [facility] Comment on above: Order Comment: Speci men Type: BLOOD SPECIMENOrdering Facility: [facility] Address: [address] [address] Performed By: #### 2 4323-8 ####[facility] LABCLIA [id number] [place] [address] AST [Catalytic activity/Vol] 18 U/L Normal 13-35 [facility] Comment on above: Order Comment: Speci men Type: BLOOD SPECIMENOrdering Facility: [facility] Address: [address] [place] [address] Performed By: #### 2 4323-8 ####[facility] LABCLIA [id number] [place] [address] Bilirubin [Mass/Vol] 0.3 mg/dL Normal 0.2-1.3 [facility] Comment on above: Order Comment: Speci men Type: BLOOD SPECIMENOrdering Facility: [facility] Address: [address] [place] [address] Performed By: #### 2 4323-8 ####[facility] LABCLIA [id number] [place] [address] Calcium [Mass/Vol] 10.0 mg/dL Normal 8.5-10.2 [facility] Comment on above: Order Comment: Speci men Type: BLOOD SPECIMENOrdering Facility: [facility] Address: [address] [place] [address] Performed By: #### 2 4323-8 ####[facility] LABCLIA [id number] [place] [address] Chloride [Moles/Vol] 101 mmol/L Normal 97-105 [facility] Comment on above: Order Comment: Speci men Type: BLOOD SPECIMENOrdering Facility: [facility] Address: [address] [place] [address] Performed By: #### 2 4323-8 ####[facility] LABCLIA [id number] [place] [address] CO2 [Moles/Vol] 26 mmol/L Normal 22-30 [facility] Comment on above: Order Comment: Speci men Type: BLOOD SPECIMENOrdering Facility: [facility] Address: [address] [place], [place] [address] Performed By: #### 2 4323-8 ####[facility] LABCLIA [id number] [place] [address] Creatinine [Mass/Vol] 1.32 mg/dL High 0.58-0.96 [facility] Comment on above: Order Comment: Speci men Type: BLOOD SPECIMENOrdering Facility: [facility] Address: [address] [address] Performed By: #### 2 4323-8 ####[facility] LABCLIA [id number] [place] [address] Creatinine and Glomerular filtration rate.predicted panel (S/P/Bld) 41 mL/min/1.73m??? Low >=60 [facility] Comment on above: Order Comment: Speci men Type: BLOOD SPECIMENOrdering Facility: [facility] Address: [address] [address] Result Comment: Sugar mated Glomerular Filtration Rate [...] 2 4323-8 ####[facility] LABIA [id number] [place] [address] Glucose [Mass/Vol] 119 mg/dL High 74-99 [facility] Comment on above: Order Comment: Speci men Type: BLOOD SPECIMENOrdering Facility: [facility] Address: [address] [address] Result Comment: The [place] Diabetes Association (ADA) provides guidance for cutoff [...] Standards of Medical Care in Diabetes 2016, [place] Diabetes Association. Diabetes Care. 2016.39(Suppl 1). Performed By: #### 2 4323-8 ####[facility] LABCLIA [id number] [place] [address] Potassium [Moles/Vol] 4.1 mmol/L Normal 3.7-5.1 [facility] Comment on above: Order Comment: Speci men Type: BLOOD SPECIMENOrdering Facility: [facility] Address: [address] [place] [address] Performed By: #### 2 4323-8 ####[facility] LABCLIA [id number] [place] [address] Protein [Mass/Vol] 7.6 g/dL Normal 6.3-8.0 [facility] Comment on above: Order Comment: Speci men Type: BLOOD SPECIMENOrdering Facility: [facility] Address: [address] [place] [address] Performed By: #### 2 4323-8 ####[facility] LABCLIA [id number] [place] [address] Sodium [Moles/Vol] 140 mmol/L Normal 136-144 [facility] Comment on above: Order Comment: Speci men Type: BLOOD SPECIMENOrdering Facility: [facility] Address: [address] [address] Performed By: #### 2 4323-8 ####[facility] LABCLIA [id number] [place] [address] Urea nitrogen [Mass/Vol] 32 mg/dL High 7-21 [facility] Comment on above: Order Comment: Speci men Type: BLOOD SPECIMENOrdering Facility: [facility] Address: [address] [phone] Performed By: #### 2 4323-8 ####[facility] [id number] [place] [address] CNSWon 05-09-2023 CNSW Social Work ([facility]) -- ANDREW BARROS ([id number]) 1945 F Date Time Provider Department 05/09/23 ALEIDA VARGAS During your visit today, we recorded the following information about you: Aleida Vargas LSW 05/09/2023 11:00 AM Signed Patient appears on the [facility] First Time Treatment List for a non-oncology treatment. No psychosocial assessment is indicated. DENIA Gupta-Karan Allergies As of Date: 05/09/2023 Noted Allergy Reaction [id number]-HNI-[id number] REDUCTASE INHIBIT*01/21/2018 16 - Unknown Comments: Other [...] Status:Closed by ALEIDA VARGAS on 05/09/23 Normal [facility] CA 15-3 BLDon 05-01-2023 Cancer Ag 15-3 Qn 9.9 U/mL <26.0 U/mL [facility] CA 27.29 BLOODon 05-01-2023 Cancer Ag 27-29 Qn 12.5 [arb'U]/mL <38.6 U/mL C [facility] CBC W Auto Differential pane l (Bld)on 05-01-2023 Basophils (Bld) [#/Vol] 0.06 10*3/uL <0.11 k/uL [facility] Basophils/100 WBC (Bld) 0.6 % [facility] Differential cell count method Nom (Bld) Auto [facility] Eosinophils (Bld) [#/Vol] 0.18 10*3/uL <0.46 k/uL [facility] Eosinophils/100 WBC (Bld) 1.9 % [facility] Erythrocyte distribution width (RBC) [Ratio] 12.7 % 11.5 - 15.0 % [facility] Hematocrit (Bld) [Volume fraction] 36.4 % 36.0 - 46.0 % [facility] Hemoglobin (Bld) [Mass/Vol] 12.2 g/dL 11.5 - 15.5 g/dL [facility] Immature granulocytes (Bld) [#/Vol] 0.03 10*3/uL <0.10 k/uL [facility] Immature granulocytes/100 WBC (Bld) 0.3 % [facility] Lymphocytes (Bld) [#/Vol] 1.62 10*3/uL 1.00 - 4.00 k/uL [facility] Lymphocytes/100 WBC (Bld) 17.3 % [facility] MCH (RBC) [Entitic mass] 32.0 pg 26.0 - 34.0 pg [facility] MCHC (RBC) [Mass/Vol] 33.5 g/dL 30.5 - 36.0 g/dL [facility] MCV (RBC) [Entitic vol] 95.5 fL 80.0 - 100.0 fL [facility] Monocytes (Bld) [#/Vol] 0.99 10*3/uL High <0.87 k/uL [facility] Monocytes/100 WBC (Bld) 10.6 % [facility] Neutrophils (Bld) [#/Vol] 6.50 10*3/uL 1.45 - 7.50 k/uL [facility] Neutrophils/100 WBC (Bld) 69.3 % [facility] Nucleated RBC (Bld) [#/Vol] <0.01 k/uL [facility] Nucleated RBC/100 WBC (Bld) [Ratio] 0.0 /100 WBC [facility] Platelet mean volume (Bld) [Entitic vol] 11.9 fL 9.0 - 12.7 fL [facility] Platelets (Bld) [#/Vol] 252 10*3/uL 150 - 400 k/uL [facility] RBC (Bld) [#/Vol] 3.81 10*6/uL Low 3.90 - 5.2 0 m/uL [facility] WBC (Bld) [#/Vol] 9.38 10*3/uL 3.70 - 11.00 k/uL [facility] Comprehensive metabolic 2000 panelon 05-01-2023 Albumin [Mass/Vol] 4.3 g/dL 3.9 - 4.9 g/dL [facility] ALP [Catalytic activity/Vol] 93 U/L 34 - 123 U/L [facility] ALT [Catalytic activity/Vol] 14 U/L 7 - 38 U/L [facility] Anion gap [Moles/Vol] 14 mmol/L 9 - 18 mmol/L [facility] AST [Catalytic activity/Vol] 18 U/L 13 - 35 U/L [facility] Bilirubin [Mass/Vol] 0.3 mg/dL 0.2 - 1 .3 mg/dL [facility] Calcium [Mass/Vol] 10.6 mg/dL High 8.5 - 10. 2 mg/dL [facility] Chloride [Moles/Vol] 98 mmol/L 97 - 10 5 mmol/L [facility] CO2 [Moles/Vol] 26 mmol/L 22 - 30 mmol/L [facility] Creatinine [Mass/Vol] 1.38 mg/dL High 0.58 - 0.96 mg/dL [facility] Estimated Glomerular Filtration Rate 39 mL/min/1.73m Low >=60 mL/min/1.73 m [facility] Glucose [Mass/Vol] 207 mg/dL High 74 - 99 mg/dL [facility] Potassium [Moles/Vol] 3.7 mmol/L 3.7 - 5.1 mmol/L [facility] Protein [Mass/Vol] 6.9 g/dL 6.3 - 8.0 g/dL [facility] Sodium [Moles/Vol] 138 mmol/L 136 - 144 mmol/L [facility] Urea nitrogen [Mass/Vol] 39 mg/dL High 7 - 21 mg/dL [facility] CBC W Auto Differential pane l (Bld)on 04-30-2023 Basophils (Bld) [#/Vol] 0.06 10*3/uL Normal <0.11 [facility] Comment on above: Order Comment: Speci men Type: BLOOD SPECIMENOrdering Facility: [facility] Address: [address] [place] [phone] Performed By: #### 5 7021-8 ####[facility] LABCLIA [id number] [place] [address] Basophils/100 WBC (Bld) 0.6 % Normal [facility] Comment on above: Order Comment: Speci men Type: BLOOD SPECIMENOrdering Facility: [facility] Address: [address] [address] Performed By: #### 5 7021-8 ####[facility] LABCLIA [id number] [place] [address] Differential cell count method Nom (Bld) Auto Normal [facility] Comment on above: Order Comment: Speci men Type: BLOOD SPECIMENOrdering Facility: [facility] Address: [address] [place] [address] Performed By: #### 5 7021-8 ####[facility] LABCLIA [id number] [place] [address] Eosinophils (Bld) [#/Vol] 0.18 10*3/uL Normal <0.46 [facility] Comment on above: Order Comment: Speci men Type: BLOOD SPECIMENOrdering Facility: [facility] Address: [address] [place] [address] Performed By: #### 5 7021-8 ####[facility] LABCLIA [id number] [place] [address] Eosinophils/100 WBC (Bld) 1.9 % Normal [facility] Comment on above: Order Comment: Speci men Type: BLOOD SPECIMENOrdering Facility: [facility] Address: [address] [place] [address] Performed By: #### 5 7021-8 ####[facility] LABCLIA [id number] [place] [address] Erythrocyte distribution width (RBC) [Ratio] 12.7 % Normal 11.5-15.0 [facility] Comment on above: Order Comment: Speci men Type: BLOOD SPECIMENOrdering Facility: [facility] Address: [address] [place] [address] Performed By: #### 5 7021-8 ####[facility] LABCLIA [id number] [place] [address] Hematocrit (Bld) [Volume fraction] 36.4 % Normal 36.0-46.0 [facility] Comment on above: Order Comment: Speci men Type: BLOOD SPECIMENOrdering Facility: [facility] Address: [address] [place] [address] Performed By: #### 5 7021-8 ####[facility] LABCLIA [id number] [place] [address] Hemoglobin (Bld) [Mass/Vol] 12.2 g/dL Normal 11.5-15.5 [facility] Comment on above: Order Comment: Speci men Type: BLOOD SPECIMENOrdering Facility: [facility] Address: [address] [place] [address] Performed By: #### 5 7021-8 ####[facility] LABIA [id number] [place] [address] Immature granulocytes (Bld) [#/Vol] 0.03 10*3/uL Normal <0.10 [facility] Comment on above: Order Comment: Speci men Type: BLOOD SPECIMENOrdering Facility: [facility] Address: [address] [place] [address] Performed By: #### 5 7021-8 ####[facility] LABIA [id number] [place] [address] Immature granulocytes/100 WBC (Bld) 0.3 % Normal [facility] Comment on above: Order Comment: Speci men Type: BLOOD SPECIMENOrdering Facility: [facility] Address: [address] [address] Performed By: #### 5 7021-8 ####[facility] LABCLIA [id number] [place] [address] Lymphocytes (Bld) [#/Vol] 1.62 10*3/uL Normal 1.00-4.00 [facility] Comment on above: Order Comment: Speci men Type: BLOOD SPECIMENOrdering Facility: [facility] Address: [address] [place] [address] Performed By: #### 5 7021-8 ####[facility] LABCLIA [id number] [place] [address] Lymphocytes/100 WBC (Bld) 17.3 % Normal [facility] Comment on above: Order Comment: Speci men Type: BLOOD SPECIMENOrdering Facility: [facility] Address: [address] [place] [address] Performed By: #### 5 7021-8 ####[facility] LABCLIA [id number] [place] [address] MCH (RBC) [Entitic mass] 32.0 pg Normal 26.0-34.0 [facility] Comment on above: Order Comment: Speci men Type: BLOOD SPECIMENOrdering Facility: [facility] Address: [address] [place] [address] Performed By: #### 5 7021-8 ####[facility] LABIA [id number] [place] [address] MCHC (RBC) [Mass/Vol] 33.5 g/dL Normal 30.5-36.0 [facility] Comment on above: Order Comment: Speci men Type: BLOOD SPECIMENOrdering Facility: [facility] Address: [address] [place] [address] Performed By: #### 5 7021-8 ####[facility] LABIA [id number] [place] [address] MCV (RBC) [Entitic vol] 95.5 fL Normal 80.0-100.0 [facility] Comment on above: Order Comment: Speci men Type: BLOOD SPECIMENOrdering Facility: [facility] Address: [address] [place] [address] Performed By: #### 5 7021-8 ####[facility] LABIA [id number] [place] [address] Monocytes (Bld) [#/Vol] 0.99 10*3/uL High <0.87 [facility] Comment on above: Order Comment: Speci men Type: BLOOD SPECIMENOrdering Facility: [facility] Address: [address] [address] Performed By: #### 5 7021-8 ####[facility] LABCLIA [id number] [place] [address] Monocytes/100 WBC (Bld) 10.6 % Normal [facility] Comment on above: Order Comment: Speci men Type: BLOOD SPECIMENOrdering Facility: [facility] Address: [address] [address] Performed By: #### 5 7021-8 ####[facility] LABCLIA [id number] [place] [address] Neutrophils (Bld) [#/Vol] 6.50 10*3/uL Normal 1.45-7.50 [facility] Comment on above: Order Comment: Speci men Type: BLOOD SPECIMENOrdering Facility: [facility] Address: [address] [address] Performed By: #### 5 7021-8 ####[facility] LABCLIA [id number] [place] [address] Neutrophils/100 WBC (Bld) 69.3 % Normal [facility] Comment on above: Order Comment: Speci men Type: BLOOD SPECIMENOrdering Facility: [facility] Address: [address] [place] [address] Performed By: #### 5 7021-8 ####[facility] LABCLIA [id number] [place] [address] Nucleated RBC (Bld) [#/Vol] 10*3/uL Normal <0.01 [facility] Comment on above: Order Comment: Speci men Type: BLOOD SPECIMENOrdering Facility: [facility] Address: [address] [place] [address] Performed By: #### 5 7021-8 ####[facility] LABCLIA [id number] [place] [address] Nucleated RBC/100 WBC (Bld) [Ratio] 0.0 /100 WBC Normal [facility] Comment on above: Order Comment: Speci men Type: BLOOD SPECIMENOrdering Facility: [facility] Address: [address] [place] [address] Performed By: #### 5 7021-8 ####[facility] LABIA [id number] [place] [address] Platelet mean volume (Bld) [Entitic vol] 11.9 fL Normal 9.0-12.7 [facility] Comment on above: Order Comment: Speci men Type: BLOOD SPECIMENOrdering Facility: [facility] Address: [address] [place] [address] Performed By: #### 5 7021-8 ####[facility] LABIA [id number] [place] [address] Platelets (Bld) [#/Vol] 252 10*3/uL Normal 150-400 [facility] Comment on above: Order Comment: Speci men Type: BLOOD SPECIMENOrdering Facility: [facility] Address: [address] [place] [address] Performed By: #### 5 7021-8 ####[facility] LABIA [id number] [place] [address] RBC (Bld) [#/Vol] 3.81 10*6/uL Low 3.90-5.20 [facility] Comment on above: Order Comment: Speci men Type: BLOOD SPECIMENOrdering Facility: [facility] Address: [address] [place] [address] Performed By: #### 5 7021-8 ####[facility] LABIA [id number] [place] [address] WBC (Bld) [#/Vol] 9.38 10*3/uL Normal 3.70-11.00 [facility] Comment on above: Order Comment: Speci men Type: BLOOD SPECIMENOrdering Facility: [facility] Address: [address] [address] Performed By: #### 5 7021-8 ####[facility] LABCLIA [id number] [place] [address] Cancer Ag15-3 SerPl-aCncon 0 04-30-2023 Cancer Ag 15-3 Qn 9.9 U/mL Normal <26.0 [facility] Comment on above: Order Comment: Speci men Type: BLOOD SPECIMENOrdering Facility: [facility] Address: [address] [address] Result Comment: The CA 15-3 test methodology used is the Electrochemiluminescence Immunoassay by [employer]. Results obtained with different methods or kits cannot be used interchangeably. Performed By: #### 6 875-9 ####[facility] LABCLIA [id number] [address] OF [facility] Cancer Ag27-29 SerPl-aCncon 04-30-2023 Cancer Ag 27-29 Qn 12.5 [arb'U]/mL Normal <38.6 [facility] Comment on above: Order Comment: Speci men Type: BLOOD SPECIMENOrdering Facility: [facility] Address: [address] [place] [address] Result Comment: The CA27.29 test was performed using the Siemens Giveoaur XP chemiluminometric immunoassay method. Results obtained with different assay methods or kits cannot be used interchangeably. Performed By: #### 1 7842-6 ####[facility] LABCLIA [id number] [place] [address] [place] Comprehensive metabolic 2000 panelon 04-30-2023 Albumin [Mass/Vol] 4.3 g/dL Normal 3.9-4.9 [facility] Comment on above: Order Comment: Speci men Type: BLOOD SPECIMENOrdering Facility: [facility] Address: [address] [place] [address] Performed By: #### 2 4323-8 ####[facility] LABCLIA [id number] [place] [address] ALP [Catalytic activity/Vol] 93 U/L Normal 34-123 [facility] Comment on above: Order Comment: Speci men Type: BLOOD SPECIMENOrdering Facility: [facility] Address: [address] [address] Performed By: #### 2 4323-8 ####[facility] LABCLIA [id number] [place] [address] ALT [Catalytic activity/Vol] 14 U/L Normal 7-38 [facility] Comment on above: Order Comment: Speci men Type: BLOOD SPECIMENOrdering Facility: [facility] Address: [address] [place] [address] Performed By: #### 2 4323-8 ####[facility] LABCLIA [id number] [place] [address] Anion gap [Moles/Vol] 14 mmol/L Normal 9-18 [facility] Comment on above: Order Comment: Speci men Type: BLOOD SPECIMENOrdering Facility: [facility] Address: [address] [place] [address] Performed By: #### 2 4323-8 ####[facility] LABCLIA [id number] [place] [address] AST [Catalytic activity/Vol] 18 U/L Normal 13-35 [facility] Comment on above: Order Comment: Speci men Type: BLOOD SPECIMENOrdering Facility: [facility] Address: [address] [place] [address] Performed By: #### 2 4323-8 ####[facility] LABCLIA [id number] [place] [address] Bilirubin [Mass/Vol] 0.3 mg/dL Normal 0.2-1.3 [facility] Comment on above: Order Comment: Speci men Type: BLOOD SPECIMENOrdering Facility: [facility] Address: [address] [address] Performed By: #### 2 4323-8 ####[facility] LABCLIA [id number] [place] [address] Calcium [Mass/Vol] 10.6 mg/dL High 8.5-10.2 [facility] Comment on above: Order Comment: Speci men Type: BLOOD SPECIMENOrdering Facility: [facility] Address: [address] [place] [address] Performed By: #### 2 4323-8 ####[facility] LABCLIA [id number] [place] [address] Chloride [Moles/Vol] 98 mmol/L Normal 97-105 [facility] Comment on above: Order Comment: Speci men Type: BLOOD SPECIMENOrdering Facility: [facility] Address: [address] [place] [address] Performed By: #### 2 4323-8 ####[facility] LABCLIA [id number] [place] [address] CO2 [Moles/Vol] 26 mmol/L Normal 22-30 [facility] Comment on above: Order Comment: Speci men Type: BLOOD SPECIMENOrdering Facility: [facility] Address: [address] [place] [address] Performed By: #### 2 4323-8 ####[facility] LABCLIA [id number] [place] [address] Creatinine [Mass/Vol] 1.38 mg/dL High 0.58-0.96 [facility] Comment on above: Order Comment: Speci men Type: BLOOD SPECIMENOrdering Facility: [facility] Address: [address] [place] [address] Performed By: #### 2 4323-8 ####[facility] LABCLIA [id number] [place] [address] ESTIMATED GLOMERULAR FILTRATION RATE 39 mL/min/1.73m??? Low >=60 [facility] Comment on above: Order Comment: Anastacio bonilla Type: BLOOD SPECIMENOrdering Facility: [facility] Address: [address] [phone] Result Comment: Sugar mated Glomerular Filtration Rate [...] 2 4323-8 ####[facility] LABCLIA [id number] [place] [address] Glucose [Mass/Vol] 207 mg/dL High 74-99 [facility] Comment on above: Order Comment: Anastacio bonilla Type: BLOOD SPECIMENOrdering Facility: [facility] Address: [address] [phone] Result Comment: The [place] Diabetes Association (ADA) provides guidance for cutoff [...] Standards of Medical Care in Diabetes 2016, [place] Diabetes Association. Diabetes Care. 2016.39(Suppl 1). Performed By: #### 2 4323-8 ####[facility] LABCLIA [id number] [place] [address] Potassium [Moles/Vol] 3.7 mmol/L Normal 3.7-5.1 [facility] Comment on above: Order Comment: Anastacio bonilla Type: BLOOD SPECIMENOrdering Facility: [facility] Address: [address] [address] Performed By: #### 2 4323-8 ####[facility] LABCLIA [id number] [place] [address] Protein [Mass/Vol] 6.9 g/dL Normal 6.3-8.0 [facility] Comment on above: Order Comment: Speci men Type: BLOOD SPECIMENOrdering Facility: [facility] Address: [address] [place] [address] Performed By: #### 2 4323-8 ####[facility] LABCLIA [id number] [place] [address] Sodium [Moles/Vol] 138 mmol/L Normal 136-144 [facility] Comment on above: Order Comment: Speci men Type: BLOOD SPECIMENOrdering Facility: [facility] Address: [address] [place] [address] Performed By: #### 2 4323-8 ####[facility] LABCLIA [id number] [place] [address] Urea nitrogen [Mass/Vol] 39 mg/dL High 7-21 [facility] Comment on above: Order Comment: Speci men Type: BLOOD SPECIMENOrdering Facility: [facility] Address: [address] [place] [address] Performed By: #### 2 4323-8 ####[facility] LABCLIA [id number] [place] [address] PTH RELATED PEPTIDEon 2022 PTH RELATED PEPTIDE 3.9 pmol/L High 0.0-3.4 [facility] Comment on above: Order Comment: Speci men Type: BLOOD SPECIMENOrdering Facility: [facility] Address: [address] [place] [address] Result Comment: INTE RPRETIVE INFORMATION: Parathyroid Hormone-Related Peptide This test was developed and its performance characteristics determined by [employer]. It has not been cleared or approved by the [place] Food and Drug Administration. This test was performed in a CLIA certified laboratory and is intended for clinical purposes. Performed By: [facility] [employer] [address] [place] [address] Generator Mechanic: Mark Fernandez MD, PhD [place] Number: [id number] Performed By: #### P THPEP ####[facility] [id number] [place] [address] CBC W Auto Differential pane l (Bld)on 04-29-2023 Basophils (Bld) [#/Vol] 0.05 10*3/uL Normal <0.11 [facility] Comment on above: Order Comment: Speci men Type: BLOOD SPECIMENOrdering Facility: [facility] Address: [address] [place] [address] Performed By: #### 5 7021-8 ####[facility] LABCLIA [id number] [place] [address] Basophils/100 WBC (Bld) 0.5 % Normal [facility] Comment on above: Order Comment: Speci men Type: BLOOD SPECIMENOrdering Facility: [facility] Address: [address] [address] Performed By: #### 5 7021-8 ####[facility] LABCLIA [id number] [place] [address] Differential cell count method Nom (Bld) Auto Normal [facility] Comment on above: Order Comment: Speci men Type: BLOOD SPECIMENOrdering Facility: [facility] Address: [address] [address] Performed By: #### 5 7021-8 ####[facility] LABCLIA [id number] [place] [address] Eosinophils (Bld) [#/Vol] 0.17 10*3/uL Normal <0.46 [facility] Comment on above: Order Comment: Speci men Type: BLOOD SPECIMENOrdering Facility: [facility] Address: [address] [address] Performed By: #### 5 7021-8 ####[facility] LABCLIA [id number] [place] [address] Eosinophils/100 WBC (Bld) 1.6 % Normal [facility] Comment on above: Order Comment: Speci men Type: BLOOD SPECIMENOrdering Facility: [facility] Address: [address] [place] [address] Performed By: #### 5 7021-8 ####[facility] LABCLIA [id number] [place] [address] Erythrocyte distribution width (RBC) [Ratio] 12.7 % Normal 11.5-15.0 [facility] Comment on above: Order Comment: Speci men Type: BLOOD SPECIMENOrdering Facility: [facility] Address: [address] [place] [address] Performed By: #### 5 7021-8 ####[facility] LABCLIA [id number] [place] [address] Hematocrit (Bld) [Volume fraction] 40.7 % Normal 36.0-46.0 [facility] Comment on above: Order Comment: Speci men Type: BLOOD SPECIMENOrdering Facility: [facility] Address: [address] [place] [address] Performed By: #### 5 7021-8 ####[facility] LABCLIA [id number] [place] [address] Hemoglobin (Bld) [Mass/Vol] 13.4 g/dL Normal 11.5-15.5 [facility] Comment on above: Order Comment: Speci men Type: BLOOD SPECIMENOrdering Facility: [facility] Address: [address] [place] [address] Performed By: #### 5 7021-8 ####[facility] LABCLIA [id number] [place] [address] Immature granulocytes (Bld) [#/Vol] 10*3/uL Normal <0.10 [facility] Comment on above: Order Comment: Speci men Type: BLOOD SPECIMENOrdering Facility: [facility] Address: [address] [place] [address] Performed By: #### 5 7021-8 ####[facility] LABCLIA [id number] [place] [address] Immature granulocytes/100 WBC (Bld) 0.2 % Normal [facility] Comment on above: Order Comment: Speci men Type: BLOOD SPECIMENOrdering Facility: [facility] Address: [address] [place] [address] Performed By: #### 5 7021-8 ####[facility] LABCLIA [id number] [place] [address] Lymphocytes (Bld) [#/Vol] 1.80 10*3/uL Normal 1.00-4.00 [facility] Comment on above: Order Comment: Speci men Type: BLOOD SPECIMENOrdering Facility: [facility] Address: [address] [place] [address] Performed By: #### 5 7021-8 ####[facility] LABIA [id number] [place] [address] Lymphocytes/100 WBC (Bld) 16.9 % Normal [facility] Comment on above: Order Comment: Speci men Type: BLOOD SPECIMENOrdering Facility: [facility] Address: [address] [place] [address] Performed By: #### 5 7021-8 ####[facility] LABCLIA [id number] [place] [address] MCH (RBC) [Entitic mass] 31.2 pg Normal 26.0-34.0 [facility] Comment on above: Order Comment: Speci men Type: BLOOD SPECIMENOrdering Facility: [facility] Address: [address] [place] [address] Performed By: #### 5 7021-8 ####[facility] LABCLIA [id number] [place] [address] MCHC (RBC) [Mass/Vol] 32.9 g/dL Normal 30.5-36.0 [facility] Comment on above: Order Comment: Speci men Type: BLOOD SPECIMENOrdering Facility: [facility] Address: [address] [place] [address] Performed By: #### 5 7021-8 ####[facility] LABCLIA [id number] [place] [address] MCV (RBC) [Entitic vol] 94.7 fL Normal 80.0-100.0 [facility] Comment on above: Order Comment: Speci men Type: BLOOD SPECIMENOrdering Facility: [facility] Address: [address] [place] [address] Performed By: #### 5 7021-8 ####[facility] LABCLIA [id number] [place] [address] Monocytes (Bld) [#/Vol] 0.88 10*3/uL High <0.87 [facility] Comment on above: Order Comment: Speci men Type: BLOOD SPECIMENOrdering Facility: [facility] Address: [address] [place] [address] Performed By: #### 5 7021-8 ####[facility] LABCLIA [id number] [place] [address] Monocytes/100 WBC (Bld) 8.3 % Normal [facility] Comment on above: Order Comment: Speci men Type: BLOOD SPECIMENOrdering Facility: [facility] Address: [address] [place] [address] Performed By: #### 5 7021-8 ####[facility] LABCLIA [id number] [place] [address] Neutrophils (Bld) [#/Vol] 7.74 10*3/uL High 1.45-7.50 [facility] Comment on above: Order Comment: Speci men Type: BLOOD SPECIMENOrdering Facility: [facility] Address: [address] [address] Performed By: #### 5 7021-8 ####[facility] LABCLIA [id number] [place] [address] Neutrophils/100 WBC (Bld) 72.5 % Normal [facility] Comment on above: Order Comment: Speci men Type: BLOOD SPECIMENOrdering Facility: [facility] Address: [address] [place] [address] Performed By: #### 5 7021-8 ####[facility] LABCLIA [id number] [place] [address] Nucleated RBC (Bld) [#/Vol] 10*3/uL Normal <0.01 [facility] Comment on above: Order Comment: Speci men Type: BLOOD SPECIMENOrdering Facility: [facility] Address: [address] [place] [address] Performed By: #### 5 7021-8 ####[facility] LABCLIA [id number] [place] [address] Nucleated RBC/100 WBC (Bld) [Ratio] 0.0 /100 WBC Normal [facility] Comment on above: Order Comment: Speci men Type: BLOOD SPECIMENOrdering Facility: [facility] Address: [address] [place] [address] Performed By: #### 5 7021-8 ####[facility] LABCLIA [id number] [place] [address] Platelet mean volume (Bld) [Entitic vol] 10.7 fL Normal 9.0-12.7 [facility] Comment on above: Order Comment: Speci men Type: BLOOD SPECIMENOrdering Facility: [facility] Address: [address] [place] [address] Performed By: #### 5 7021-8 ####[facility] LABCLIA [id number] [place] [address] Platelets (Bld) [#/Vol] 280 10*3/uL Normal 150-400 [facility] Comment on above: Order Comment: Speci men Type: BLOOD SPECIMENOrdering Facility: [facility] Address: [address] [address] Performed By: #### 5 7021-8 ####[facility] LABIA [id number] [place] [address] RBC (Bld) [#/Vol] 4.30 10*6/uL Normal 3.90-5.20 [facility] Comment on above: Order Comment: Speci men Type: BLOOD SPECIMENOrdering Facility: [facility] Address: [address] [address] Performed By: #### 5 7021-8 ####[facility] LABIA [id number] [place] [address] WBC (Bld) [#/Vol] 10.66 10*3/uL Normal 3.70-11.00 [facility] Comment on above: Order Comment: Speci men Type: BLOOD SPECIMENOrdering Facility: [facility] Address: [address] [address] Performed By: #### 5 7021-8 ####[facility] LABIA [id number] [place] [address] CNOVSPon 04-29-2023 CNOVS Visit (SP) Office ([facility]) -- ANDREW BARROS ([id number]) 1945 F Date Time Provider Department 04/29/23 3:15 PM SANDEEP LENZ During your visit today, we recorded the following information about you: Temperature Pulse Respiration Blood pressure 97 degrees 66/minute 16/minute 153/66 Weight Height 58.2 kg 1.626 m Sandeep Lenz MD 05/05/2023 6:04 PM Signed NAME: Andrew Barros CLINIC NO.: [id number] DATE OF SERVICE: April 29, 2023 (batsheva) Some elements in this clinic note that are critical to medical decision making have been carefully reviewed and included from a prior clinic note dated: January 08, 2022 (Eduardo) Referring Provider: Eduardo Sharpe Additional Clinicians involved in Andrew Barros's care: CC: History of Breast Cancer ASSESSMENT: 77 year old woman with Left breast upper outer quadrant, invasive ductal carcinoma, ER postive, MD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 Mammograms at [facility] on 01/04/2021 Bi-Rads 2 benign. REVIEW [...] of recurring mass. ALLERGIES: ALLERGIES Allergen Reactions Hntrwxm-Uao-Tbt Red* Unknown Other reaction(s): AOF MEDICATIONS: doxazosin (CARDURA) 4 mg tablet Take 4 mg by mouth daily at bedtime. aspirin (ASPIR-81 ORAL) Take 81 mg by mo (more content not included)... Normal [facility] Comprehensive metabolic 2000 panelon 04-29-2023 Albumin [Mass/Vol] 4.4 g/dL Normal 3.9-4.9 [facility] Comment on above: Order Comment: Speci men Type: BLOOD SPECIMENOrdering Facility: [facility] Address: [address] [place] [address] Performed By: #### 2 4323-8 ####[facility] LABCLIA [id number] [place] [address] ALP [Catalytic activity/Vol] 98 U/L Normal 34-123 [facility] Comment on above: Order Comment: Speci men Type: BLOOD SPECIMENOrdering Facility: [facility] Address: [address] [place] [address] Performed By: #### 2 4323-8 ####[facility] LABCLIA [id number] [place] [address] ALT [Catalytic activity/Vol] 15 U/L Normal 7-38 [facility] Comment on above: Order Comment: Speci men Type: BLOOD SPECIMENOrdering Facility: [facility] Address: [address] [place] [address] Performed By: #### 2 4323-8 ####[facility] LABCLIA [id number] [place] [address] Anion gap [Moles/Vol] 15 mmol/L Normal 9-18 [facility] Comment on above: Order Comment: Speci men Type: BLOOD SPECIMENOrdering Facility: [facility] Address: [address] [place] [address] Performed By: #### 2 4323-8 ####[facility] LABCLIA [id number] [place] [address] AST [Catalytic activity/Vol] 20 U/L Normal 13-35 [facility] Comment on above: Order Comment: Speci men Type: BLOOD SPECIMENOrdering Facility: [facility] Address: [address] [address] Performed By: #### 2 4323-8 ####[facility] LABCLIA [id number] [place] [address] Bilirubin [Mass/Vol] 0.4 mg/dL Normal 0.2-1.3 [facility] Comment on above: Order Comment: Speci men Type: BLOOD SPECIMENOrdering Facility: [facility] Address: [address] [address] Performed By: #### 2 4323-8 ####[facility] LABCLIA [id number] [place] [address] Calcium [Mass/Vol] 11.1 mg/dL High 8.5-10.2 [facility] Comment on above: Order Comment: Speci men Type: BLOOD SPECIMENOrdering Facility: [facility] Address: [address] [address] Performed By: #### 2 4323-8 ####[facility] LABCLIA [id number] [place] [address] Chloride [Moles/Vol] 98 mmol/L Normal 97-105 [facility] Comment on above: Order Comment: Speci men Type: BLOOD SPECIMENOrdering Facility: [facility] Address: [address] [address] Performed By: #### 2 4323-8 ####[facility] LABCLIA [id number] [place] [address] CO2 [Moles/Vol] 28 mmol/L Normal 22-30 [facility] Comment on above: Order Comment: Speci men Type: BLOOD SPECIMENOrdering Facility: [facility] Address: [address] [address] Performed By: #### 2 4323-8 ####[facility] LABCLIA [id number] [place] [address] Creatinine [Mass/Vol] 1.49 mg/dL High 0.58-0.96 [facility] Comment on above: Order Comment: Anastacio bonilla Type: BLOOD SPECIMENOrdering Facility: [facility] Address: [address] [place] [address] Performed By: #### 2 4323-8 ####[facility] LABCLIA [id number] [place] [address] ESTIMATED GLOMERULAR FILTRATION RATE 36 mL/min/1.73m??? Low >=60 [facility] Comment on above: Order Comment: Anastacio bonilla Type: BLOOD SPECIMENOrdering Facility: [facility] Address: [address] [place] [address] Result Comment: Sugar mated Glomerular Filtration Rate [...] 2 4323-8 ####[facility] LABCLIA [id number] [place] [address] Glucose [Mass/Vol] 135 mg/dL High 74-99 [facility] Comment on above: Order Comment: Anastacio bonilla Type: BLOOD SPECIMENOrdering Facility: [facility] Address: [address] [place] [address] Result Comment: The [place] Diabetes Association (ADA) provides guidance for cutoff [...] Standards of Medical Care in Diabetes 2016, [place] Diabetes Association. Diabetes Care. 2016.39(Suppl 1). Performed By: #### 2 4323-8 ####[facility] LABCLIA [id number] [place] [address] Potassium [Moles/Vol] 3.9 mmol/L Normal 3.7-5.1 [facility] Comment on above: Order Comment: Speci men Type: BLOOD SPECIMENOrdering Facility: [facility] Address: [address] [address] Performed By: #### 2 4323-8 ####[facility] LABCLIA [id number] [place] [address] Protein [Mass/Vol] 7.4 g/dL Normal 6.3-8.0 [facility] Comment on above: Order Comment: Speci men Type: BLOOD SPECIMENOrdering Facility: [facility] Address: [address] [address] Performed By: #### 2 4323-8 ####[facility] LABCLIA [id number] [place] [address] Sodium [Moles/Vol] 141 mmol/L Normal 136-144 [facility] Comment on above: Order Comment: Speci men Type: BLOOD SPECIMENOrdering Facility: [facility] Address: [address] [address] Performed By: #### 2 4323-8 ####[facility] LABCLIA [id number] [place] [address] Urea nitrogen [Mass/Vol] 38 mg/dL High 7-21 [facility] Comment on above: Order Comment: Speci men Type: BLOOD SPECIMENOrdering Facility: [facility] Address: [address] [address] Performed By: #### 2 4323-8 ####[facility] LABCLIA [id number] [place] [address] Office Visiton 04-01-2023 Follow-up visit [id number] Wayne Barros 1945 F Date Provider Department Center 04/01/2023 GISSELL WANG KASHIF Marie Family History Problem Relation Age of Onset Coronary artery disease Mother Coronary artery disease Father Coronary artery disease Sister Coronary artery disease Brother Family Status - Relation Status Age at Mother Father Sister Brother Level of Service:[id number] MD OFFICE/OUTPATIENT ESTABLISHED MOD MDM 30-39 MIN Reason for Visit and Comments: Atrial Fibrillation [80] Hypertension [[id number]] [facility] 36on 03-27-2023 36 Called and discussed . Thanks. [facility] Office Visiton 01-14-2023 Follow-up visit [id number] Wayne Barros 1945 F Date Provider Department Center 01/14/2023 DAYO OLSEN KASHIF Marie Family History Problem Relation Age of Onset Coronary artery disease Mother Coronary artery disease Father Coronary artery disease Sister Coronary artery disease Brother Family Status - Relation Status Age at Mother Father Sister Brother Level of Service:89847 MD OFFICE/OUTPATIENT ESTABLISHED MOD MDM 30-39 MIN Reason for Visit and Comments: Atrial Fibrillation [80] Congestive Heart Failure [127] Hypertension [557491] Valve Disorder [3372] [facility] BNPon 08-24-2022 Natriuretic peptide B (Bld) [Mass/Vol] 1296.0 pg/mL Normal <=1,800.0 [facility] Comment on above: Performed By: #### B SAFETY DIRECTOR, CMP ####[facility] Yvolvupbum[address] [place] [address]Dr. Swathi Reis CBC W MANUAL DIFFon 08-24-20 22 ATYPICAL LYMPH # Normal [facility] Comment on above: Performed By: #### C NGA ####[facility] [address]efifhq[address] [place] [address]Dr. Swathi Reis ATYPICAL LYMPH % Normal [facility] Comment on above: Performed By: #### C NGA ####[facility] Lyodimfebm[address] [place] [address]Dr. Yitracy Reis BAND # 0.1 103/ul Normal 0.0-0.3 [facility] Comment on above: Performed By: #### C BCMAN ####[facility] Xxympqvynz[address] [place] [address]Dr. Yilan Reis BAND % 1 % Normal 0-5 [facility] Comment on above: Performed By: #### C BCMAN ####[facility] Kqlxcquzef[address] [place] [address]Dr. Yilan Reis BASOM # 0.00 103/ul Normal 0.00-0.10 [facility] Comment on above: Performed By: #### C BCYUN ####[facility] Fxtthmpluz[address] [place] [address]Dr. Swathi Reis BASOM % 0.0 % Critically low 0.2-2.0 [facility] Comment on above: Performed By: #### C BCYUN ####[facility] Qjisjcmlpq[address] [place] [address]Dr. Yilan Reis BLAST # Normal [facility] Comment on above: Performed By: #### C BCYUN ####[facility] Orpdxoyfoj[address] [place] [address]Dr. Yilan Reis BLAST % Normal [facility] Comment on above: Performed By: #### C NGA ####[facility] Wrleaxdrqf027[address] [place] [address]Dr. Swathi Reis CORRECTED WBC Normal 4.0-11.0 [facility] Comment on above: Performed By: #### C BCYUN ####[facility] Aynlazfwrx[address] [place] [address]Dr. Yitracy Reis EOS # 0.39 103/ul Normal 0.00-0.70 [facility] Comment on above: Performed By: #### C BCYUN ####[facility] Fiukvkagpt3352 [place] [address]Dr. Yitracy Reis EOS% 3.0 % Normal 0.9-7.0 [facility] Comment on above: Performed By: #### C BCMAN ####[facility] Vlirynedvh4[address] [place] [phone]. Swathi Reis HCT 32.6 % Critically low 36.0-48.0 [facility] Comment on above: Performed By: #### C NGA ####[facility] Cfkcjhlwak6699 [place] [phone]. Swathi Reis HGB 10.6 g/dl Critically low 12.0-16.0 [facility] Comment on above: Performed By: #### C NGA ####[facility] Yahhmaxbph5193 [place] [phone]. Swathi Reis HYPOCHROMASIA SLIGHT Normal [facility] Comment on above: Performed By: #### C NGA ####[facility] Qeijbroslp6783 [place] [phone]. Swathi Reis LYMPHM # 1.04 103/ul Critically low 1.20-3.80 [facility] Comment on above: Performed By: #### C NGA ####[facility] Imuokacgfw9260 [place] [phone]. Swathi Reis LYMPHM% 8.0 % Critically low 20.5-60.0 [facility] Comment on above: Performed By: #### C NGA ####[facility] Anhusfncyh4392 [place] [phone]. Swathi Reis MCH 29.2 pg Normal 26.7-34.0 [facility] Comment on above: Performed By: #### C NGA ####[facility] Qighkvwvlq9171 [place] [phone]. Swathi Reis MCHC 32.5 g/dl Normal 29.9-35.2 [facility] Comment on above: Performed By: #### C NGA ####[facility] Mtjcxhhyfl2949 [place] [phone]. Swathi Reis MCV 89.8 fL Normal 81.0-99.0 [facility] Comment on above: Performed By: #### C NGA ####[facility] Lmxuxgazhc1978 [place] [phone]. Swathi Reis METAMYELOCYTE # Normal [facility] Comment on above: Performed By: #### C NGA ####[facility] Wtzfgtdlgq5463 [place] [phone]. Swathi Reis METAMYELOCYTE % Normal [facility] Comment on above: Performed By: #### C NGA ####[facility] Ochxihfeze6896 [place] [phone]. Swathi Reis MONOM# 1.17 103/ul Critically high 0.30-0.80 [facility] Comment on above: Performed By: #### C NGA ####[facility] Ckrbkrvouy7121 [place] [phone]. Swathi Reis MONOM% 9.0 % Normal 1.7-12.0 [facility] Comment on above: Performed By: #### C NGA ####[facility] Dykkxbvmpa2295 [place] [phone]. Swathi Reis MPV 10.0 fL Normal 9.5-13.5 [facility] Comment on above: Performed By: #### C NGA ####[facility] Opbzzstsvg4491 [place] [phone]. Swathi Reis MYELOCYTE # Normal [facility] Comment on above: Performed By: #### C NGA ####[facility] Echkphzjui6916 [place] [phone]. Swathi Reis MYELOCYTE % Normal [facility] Comment on above: Performed By: #### C NGA ####[facility] Rgturtatqn8742 [place] [phone]. Swathi Reis NRBC Normal [facility] Comment on above: Performed By: #### C NGA ####[facility] Djhayfckja1751 [place] [phone]. Swathi Reis PLT 353 103/ul Normal 150-450 [facility] Comment on above: Performed By: #### C NGA ####[facility] Yrospvlzdr2876 [place] [phone]. Inessatracy Chato RBC 3.63 106/ul Critically low 4.20-5.40 [facility] Comment on above: Performed By: #### C NGA ####[facility] Viayupyrwd8957 [place] [phone]. Swathi Chato RDW 13.6 % Normal 11.0-15.0 [facility] Comment on above: Performed By: #### C NGA ####[facility] Hhhoskzfie27[address] [place], [place] [address]Ei. Inessatracy Chato SEG # 10.27 103/ul Critically high 1.40-6.50 [facility] Comment on above: Performed By: #### C NGA ####[facility] Lavppjyhny4435 [place], [place] [address]Yj. Swathi Reis SEG % 79.0 % Critically high 43.0-75.0 [facility] Comment on above: Performed By: #### C NGA ####[facility] Lifvtcznop5704 [place] [phone]. Swathi Reis WBC 13.0 103/ul Critically high 4.0-11.0 [facility] Comment on above: Performed By: #### C NGA ####[facility] Zuazhqxwvl2600 [place] [phone] Reis DIGOXINon 08-24-2022 DIG 1.8 ng/mL Normal 0.9-2.0 [facility] Comment on above: Performed By: #### D IG ####[facility] Gehbhyitwo1271 [place] [phone] Reis PROF 14(COMP METB)on 022 Albumin [Mass/Vol] 2.4 g/dL Critically low 3.4-5.0 [facility] Comment on above: Performed By: #### B SAFETY DIRECTOR, CMP ####[facility] Dgkqbjdmou1447 [place] [phone] Reis Albumin/Globulin [Mass ratio] 0.5 {ratio} Normal [facility] Comment on above: Performed By: #### B SAFETY DIRECTOR, CMP ####[facility] Rutmdsdozq4008 [place] [phone] Reis ALP [Catalytic activity/Vol] 93 U/L Normal 46-116 [facility] Comment on above: Performed By: #### B SAFETY DIRECTOR, CMP ####[facility] Sjlzgniucy065[address] [place], [place] [address]Dr. Inessatracy Chato ALT [Catalytic activity/Vol] 8 U/L Critically low 14-59 [facility] Comment on above: Performed By: #### B SAFETY DIRECTOR, CMP ####[facility] Ibbpyltjyh540[address] [place], [place] [address]Dr. Swathi Reis Anion gap [Moles/Vol] 11.2 mmol/L Normal [facility] Comment on above: Performed By: #### B SAFETY DIRECTOR, CMP ####[facility] Unadhqypnh458[address] [place], [place] [address]Dr. Swathi Reis AST [Catalytic activity/Vol] 14 U/L Critically low 15-37 [facility] Comment on above: Performed By: #### B SAFETY DIRECTOR, CMP ####[facility] Mrgpqlpptu535[address] [place], [place] [address]Dr. Swathi Reis Bilirubin [Mass/Vol] 0.4 mg/dL Normal 0.2-1.0 [facility] Comment on above: Performed By: #### B SAFETY DIRECTOR, CMP ####[facility] Udjnwhipqi3227[address] [place], [place] [address]Dr. Swathi Reis Calcium [Mass/Vol] 9.4 mg/dL Normal 8.5-10.1 [facility] Comment on above: Performed By: #### B SAFETY DIRECTOR, CMP ####[facility] Dzbjjrkvlx5022[address] [place], [place] [address]Dr. Swathi Reis Chloride [Moles/Vol] 101 mmol/L Normal 98-107 [facility] Comment on above: Performed By: #### B SAFETY DIRECTOR, CMP ####[facility] Bmwfueielu524[address] [place], [place] [address]Dr. Swathi Reis CO2 [Moles/Vol] 31.0 mmol/L Normal 21.0-32.0 [facility] Comment on above: Performed By: #### B SAFETY DIRECTOR, CMP ####[facility] Aohgdgticz665[address] [place], [place] [address]Dr. Swathi Reis Creatinine [Mass/Vol] 1.49 mg/dL Critically high 0.55-1.02 [facility] Comment on above: Performed By: #### B SAFETY DIRECTOR, CMP ####[facility] Wdayyrejoh0030[address] [place], [place] [address]Dr. Swathi Reis EGFR-AF MAURITANIAN 41 mL/min/1.73m2 Critically low >=60 [facility] Comment on above: Performed By: #### B SAFETY DIRECTOR, CMP ####[facility] Kfjptpeuzd118[address] [place], [place] [address]Dr. Swathi Reis EGFR-NON AF MAURITANIAN 34 mL/min/1.73m2 Critically low >=60 [facility] Comment on above: Performed By: #### B SAFETY DIRECTOR, CMP ####[facility] Vlhdkxjaqr943[address] [place], [place] [address]Dr. Swathi Reis Globulin (S) [Mass/Vol] 4.8 g/dL Normal [facility] Comment on above: Performed By: #### B SAFETY DIRECTOR, CMP ####[facility] Xpulhrmxzt9630[address] [place], [place] [address]Dr. Swathi Reis Glucose [Mass/Vol] 153 mg/dL Critically high 74-106 [facility] Comment on above: Performed By: #### B SAFETY DIRECTOR, CMP ####[facility] Zntgmucfgf70[address] [place], [place] [address]Dr. Swathi Reis Potassium [Moles/Vol] 4.2 mmol/L Normal 3.5-5.1 [facility] Comment on above: Performed By: #### B SAFETY DIRECTOR, CMP ####[facility] Zshfybyfyg55[address] [place], [place] [address]Dr. Swathi Reis Protein [Mass/Vol] 7.2 g/dL Normal 6.4-8.2 [facility] Comment on above: Performed By: #### B SAFETY DIRECTOR, CMP ####[facility] Wwnwrgjgck7[address] [place], [place] [address]Dr. Swathi Reis Sodium [Moles/Vol] 139 mmol/L Normal 136-145 [facility] Comment on above: Performed By: #### B SAFETY DIRECTOR, CMP ####[facility] Qrlambeihu2338 [place] [address]Dr. Swathi Reis Urea nitrogen [Mass/Vol] 22.0 mg/dL Critically high 7.0-18.0 [facility] Comment on above: Performed By: #### B SAFETY DIRECTOR, CMP ####[facility] Gvhcbnqvoz515[address] [place], [place] [address]Dr. Swathi Reis Urea nitrogen/Creatinine [Mass ratio] 14.8 mg/mg Normal [facility] Comment on above: Performed By: #### B SAFETY DIRECTOR, CMP ####[facility] Kncndjvpvg500[address] [place], [place] [address]Dr. Swathi Reis BNPon 08-23-2022 Natriuretic peptide B (Bld) [Mass/Vol] 1755.0 pg/mL Normal <=1,800.0 [facility] Comment on above: Performed By: #### B SAFETY DIRECTOR, CMP ####[facility] Eskiqrlivz40[address] [place], [place] [address]Dr. Swathi Reis CBC AUTO DIFFon 08-23-2022 BASO # 0.1 103/ul Normal 0.0-0.1 [facility] Comment on above: Performed By: #### C BC ####[facility] Hvbsjnveuu2225[address] [place], [place] [address]Dr. Swathi Chato Basophils/100 WBC (Bld) 0.7 % Normal 0.2-2.0 [facility] Comment on above: Performed By: #### C BC ####[facility] Pfhyxzvlss1647[address] [place], [place] [address]Dr. Swathi Reis EO # 0.2 103/ul Normal 0.0-0.7 [facility] Comment on above: Performed By: #### C BC ####[facility] Aeleducsgc0468[address] [place], [place] [address]Dr. Swathi Chato Eosinophils/100 WBC (Bld) 2.2 % Normal 0.9-7.0 [facility] Comment on above: Performed By: #### C BC ####[facility] Zixzdaknyx701[address] [place], [place] [address]Dr. Swathi Reis Erythrocyte distribution width (RBC) [Ratio] 13.6 % Normal 11.0-15.0 [facility] Comment on above: Performed By: #### C BC ####[facility] Vewdlxxksb9088 [place] [address]DrOtto Reis Hematocrit (Bld) [Volume fraction] 33.1 % Critically low 36.0-48.0 [facility] Comment on above: Performed By: #### C BC ####[facility] Epwzoqcmvb5590 [place] [address]DrOtto Reis Hemoglobin (Bld) [Mass/Vol] 10.6 g/dL Critically low 12.0-16.0 [facility] Comment on above: Performed By: #### C BC ####[facility] Ybzqkfrkjn[address] [place], [place] [address]DrOtto Reis IG # 0.12 10e3/ul Critically high 0.00-0.03 [facility] Comment on above: Performed By: #### C BC ####[facility] Gxudwjfrtz464[address] [place], [place] [address]DrOtto Reis IG % 1.1 % Critically high 0.0-0.5 [facility] Comment on above: Performed By: #### C BC ####[facility] Ovnxitcwza801[address] [place], [place] [address]DrOtto Reis LYMPH # 1.6 103/ul Normal 1.2-3.8 [facility] Comment on above: Performed By: #### C BC ####[facility] Dtrlynreyn600396 [address] [place], [place] [address]DrOtto Reis Lymphocytes/100 WBC (Bld) 14.6 % Critically low 20.5-60.0 [facility] Comment on above: Performed By: #### C BC ####[facility] Gougwxjask335[address] [place], [place] [address]DrOtto Reis MANUAL DIFF REQ NO Normal [facility] Comment on above: Performed By: #### C BC ####[facility] Dhbemajcbt528[address] [place], [place] [address]DrOtto Reis MCH (RBC) [Entitic mass] 29.0 pg Normal 26.7-34.0 [facility] Comment on above: Performed By: #### C BC ####[facility] Uovedetdzg9042 [place] [address]DrOtto Reis MCHC (RBC) [Mass/Vol] 32.0 g/dL Normal 29.9-35.2 [facility] Comment on above: Performed By: #### C BC ####[facility] Oeipgrazeb615[address] [place], [place] [address]DrOtto Reis MCV (RBC) [Entitic vol] 90.4 fL Normal 81.0-99.0 [facility] Comment on above: Performed By: #### C BC ####[facility] Jjbeadszww90[address] [place], [place] [address]DrOtto Reis MONO # 1.4 103/ul Critically high 0.3-0.8 [facility] Comment on above: Performed By: #### C BC ####[facility] Koihvhyttg9412[address] [place], [place] [address]DrOtto Reis Monocytes/100 WBC (Bld) 12.8 % Critically high 1.7-12.0 [facility] Comment on above: Performed By: #### C BC ####[facility] Bxtixlkznx866[address] [place], [place] [address]DrOtto Reis NEUT # 7.5 103/ul Critically high 1.4-6.5 [facility] Comment on above: Performed By: #### C BC ####[facility] Psalugskpv457[address] [place], [place] [address]DrOtto Reis Neutrophils/100 WBC (Bld) 68.6 % Normal 43.0-75.0 [facility] Comment on above: Performed By: #### C BC ####[facility] Tfuttbiffj0964[address] [place], [place] [address]DrOtto Reis Platelet mean volume (Bld) [Entitic vol] 10.3 fL Normal 9.5-13.5 [facility] Comment on above: Performed By: #### C BC ####[facility] Thhpsxppuk08[address] [place], [place] [address]DrOtto Reis PLT 387 103/ul Normal 150-450 [facility] Comment on above: Performed By: #### C BC ####[facility] Yimqzxctgc[address] [place] [address]Dr. Swathi Reis RBC 3.66 106/ul Critically low 4.20-5.40 [facility] Comment on above: Performed By: #### C BC ####[facility] Mwtjunsrrx4321 [place] [address]Dr. Swathi Reis WBC 11.0 103/ul Normal 4.0-11.0 [facility] Comment on above: Performed By: #### C BC ####[facility] Mqcginpdxy6439 [place] [address]Dr. Swathi Reis DIGOXINon 08-23-2022 DIG 1.6 ng/mL Normal 0.9-2.0 [facility] Comment on above: Performed By: #### D IG ####[facility] Hjfvltvyje077[address] [place], [place] [address]Dr. Swathi Reis POINT OF CARE GLUCOSEon Glucose [Mass/Vol] 167 mg/dL Critically high 74-106 [facility] Comment on above: Performed By: #### P OCGLUC ####[facility] Dgmtaajsse9985 [place] [address]Dr. Swathi Reis Glucose [Mass/Vol] 114 mg/dL Critically high 74-106 [facility] Comment on above: Performed By: #### P OCGLUC ####[facility] Ucxfyuascm1497 [place] [address]Dr. Swathi Reis Glucose [Mass/Vol] 272 mg/dL Critically high 74-106 [facility] Comment on above: Performed By: #### P OCGLUC ####[facility] Aihzwtwcmr1237[address] [place], [place] [address]Dr. Swathi Reis PROF 14(COMP METB)on 022 Albumin [Mass/Vol] 2.4 g/dL Critically low 3.4-5.0 [facility] Comment on above: Performed By: #### B SAFETY DIRECTOR, CMP ####[facility] Fpdnbtdwrb5047 [place] [phone]. Swathi Reis Albumin/Globulin [Mass ratio] 0.5 {ratio} Normal [facility] Comment on above: Performed By: #### B SAFETY DIRECTOR, CMP ####[facility] Mawpxrgxjt4[address] [place], [place] [address]Iz. Swathi Reis ALP [Catalytic activity/Vol] 104 U/L Normal 46-116 [facility] Comment on above: Performed By: #### B SAFETY DIRECTOR, CMP ####[facility] Yokpstmbge6713 [place] [phone]. Swathi Reis ALT [Catalytic activity/Vol] 7 U/L Critically low 14-59 [facility] Comment on above: Performed By: #### B SAFETY DIRECTOR, CMP ####[facility] Ocbbhmzmyp3536 [place] [phone]. Swathi Reis Anion gap [Moles/Vol] 11.1 mmol/L Normal [facility] Comment on above: Performed By: #### B SAFETY DIRECTOR, CMP ####[facility] Zzwnyiagni0209 [place] [phone]. Swathi Chato AST [Catalytic activity/Vol] 19 U/L Normal 15-37 [facility] Comment on above: Performed By: #### B SAFETY DIRECTOR, CMP ####[facility] Jgukfoiola6714 [place] [phone]. Swathi Chato Bilirubin [Mass/Vol] 0.4 mg/dL Normal 0.2-1.0 [facility] Comment on above: Performed By: #### B SAFETY DIRECTOR, CMP ####[facility] Stkoozwabf5840 [place] [phone]. Swathi Chato Calcium [Mass/Vol] 9.5 mg/dL Normal 8.5-10.1 [facility] Comment on above: Performed By: #### B SAFETY DIRECTOR, CMP ####[facility] Fvcuxcsqje6810 [place] [phone]. Inessatracy Chato Chloride [Moles/Vol] 101 mmol/L Normal 98-107 [facility] Comment on above: Performed By: #### B SAFETY DIRECTOR, CMP ####[facility] Yhxauelmmo2707 [place] [phone]. Swathi Reis CO2 [Moles/Vol] 30.7 mmol/L Normal 21.0-32.0 [facility] Comment on above: Performed By: #### B SAFETY DIRECTOR, CMP ####[facility] Ubfeulmukg655[address] [place], [place] [address]Dr. Swathi Reis Creatinine [Mass/Vol] 1.53 mg/dL Critically high 0.55-1.02 [facility] Comment on above: Performed By: #### B SAFETY DIRECTOR, CMP ####[facility] Ccwphfuhhd016[address] [place], [place] [address]Dr. Swathi Chato EGFR-AF MAURITANIAN 40 mL/min/1.73m2 Critically low >=60 [facility] Comment on above: Performed By: #### B SAFETY DIRECTOR, CMP ####[facility] Qrzjhtzgdb95[address] [place], [place] [address]Dr. Swathi Reis EGFR-NON AF MAURITANIAN 33 mL/min/1.73m2 Critically low >=60 [facility] Comment on above: Performed By: #### B SAFETY DIRECTOR, CMP ####[facility] Pbyigebvod2385[address] [place], [place] [address]Dr. Swathi Chato Globulin (S) [Mass/Vol] 4.9 g/dL Normal [facility] Comment on above: Performed By: #### B SAFETY DIRECTOR, CMP ####[facility] Klejgaomfj1864[address] [place], [place] [address]Dr. Inessatracy Chato Glucose [Mass/Vol] 139 mg/dL Critically high 74-106 [facility] Comment on above: Performed By: #### B SAFETY DIRECTOR, CMP ####[facility] Gzucmvgjow0015[address] [place], [place] [address]Dr. Swathi Reis Potassium [Moles/Vol] 3.8 mmol/L Normal 3.5-5.1 [facility] Comment on above: Performed By: #### B SAFETY DIRECTOR, CMP ####[facility] Mukowsnujz770[address] [place], [place] [address]Dr. Swathi Reis Protein [Mass/Vol] 7.3 g/dL Normal 6.4-8.2 [facility] Comment on above: Performed By: #### B SAFETY DIRECTOR, CMP ####[facility] Qrxgyzfgeu718[address] [place], [place] [address]Dr. Swathi Reis Sodium [Moles/Vol] 139 mmol/L Normal 136-145 [facility] Comment on above: Performed By: #### B SAFETY DIRECTOR, CMP ####[facility] Hrpvhrudgt30[address] [place], [place] [address]Dr. Swathi Reis Urea nitrogen [Mass/Vol] 26.0 mg/dL Critically high 7.0-18.0 [facility] Comment on above: Performed By: #### B SAFETY DIRECTOR, CMP ####[facility] Alkhsockrm716[address] [place], [place] [address]Dr. Swathi Reis Urea nitrogen/Creatinine [Mass ratio] 17.0 mg/mg Normal [facility] Comment on above: Performed By: #### B SAFETY DIRECTOR, CMP ####[facility] Qfrmyetwgc4785[address] [place], [place] [address]Dr. Swathi Chato BNPon 08-22-2022 Natriuretic peptide B (Bld) [Mass/Vol] 3439.0 pg/mL Critically high <=1,800.0 [facility] Comment on above: Performed By: #### C MP, BNP ####[facility] Oeziulxper12[address] [place], [place] [address]Dr. Swathi Reis CBC AUTO DIFFon 08-22-2022 BASO # 0.1 103/ul Normal 0.0-0.1 [facility] Comment on above: Performed By: #### C BC ####[facility] Bktjdnohlc996[address] [place], [place] [address]Dr. Swathi Chato Basophils/100 WBC (Bld) 0.6 % Normal 0.2-2.0 [facility] Comment on above: Performed By: #### C BC ####[facility] Jhuuodjnyg805[address] [place], [place] [address]Dr. Swathi Reis EO # 0.3 103/ul Normal 0.0-0.7 [facility] Comment on above: Performed By: #### C BC ####[facility] Gvebrbgdjm5835[address] [place], [place] [address]Dr. Swathi Reis Eosinophils/100 WBC (Bld) 2.1 % Normal 0.9-7.0 [facility] Comment on above: Performed By: #### C BC ####[facility] Sggewsbmsk46[address] [place] [address]Dr. Swathi Reis Erythrocyte distribution width (RBC) [Ratio] 13.8 % Normal 11.0-15.0 [facility] Comment on above: Performed By: #### C BC ####[facility] Twdgyyqqjo46[address] [place] [address]Dr. Swathi Reis Hematocrit (Bld) [Volume fraction] 31.9 % Critically low 36.0-48.0 [facility] Comment on above: Performed By: #### C BC ####[facility] Ozypsnkydo60[address] [place] [address]Dr. Swathi Reis Hemoglobin (Bld) [Mass/Vol] 10.2 g/dL Critically low 12.0-16.0 [facility] Comment on above: Performed By: #### C BC ####[facility] Heyddpgfdn6[address] [place] [address]Dr. Swathi Reis IG # 0.10 10e3/ul Critically high 0.00-0.03 [facility] Comment on above: Performed By: #### C BC ####[facility] Bqfkdknmba[address] [place] [address]Dr. Swathi Reis IG % 0.8 % Critically high 0.0-0.5 [facility] Comment on above: Performed By: #### C BC ####[facility] Tspafhkkgd88[address] [place] [address]Dr. Swathi Reis LYMPH # 1.2 103/ul Normal 1.2-3.8 [facility] Comment on above: Performed By: #### C BC ####[facility] Sckfthilhf7[address] [place] [address]Dr. Swathi Reis Lymphocytes/100 WBC (Bld) 9.6 % Critically low 20.5-60.0 [facility] Comment on above: Performed By: #### C BC ####[facility] Lwmmnrzsiu44[address] [place] [id number]. Swathi Reis MANUAL DIFF REQ NO Normal [facility] Comment on above: Performed By: #### C BC ####[facility] Ufvrvdmznk7[address] [place] [phone]. Swathi Reis MCH (RBC) [Entitic mass] 28.7 pg Normal 26.7-34.0 [facility] Comment on above: Performed By: #### C BC ####[facility] Jjulawwdef30[address] [place] [address]Dr. Swathi Reis MCHC (RBC) [Mass/Vol] 32.0 g/dL Normal 29.9-35.2 [facility] Comment on above: Performed By: #### C BC ####[facility] Iniedemyyg6006 [place] [address]Dr. Swathi Reis MCV (RBC) [Entitic vol] 89.9 fL Normal 81.0-99.0 [facility] Comment on above: Performed By: #### C BC ####[facility] Swktoszxbn4272 [place] [id number]. Swathi Reis MONO # 1.0 103/ul Critically high 0.3-0.8 [facility] Comment on above: Performed By: #### C BC ####[facility] Vmeumcyjse26[address] [place] [address]Dr. Swathi Chato Monocytes/100 WBC (Bld) 8.5 % Normal 1.7-12.0 [facility] Comment on above: Performed By: #### C BC ####[facility] Bqetsrxrqt0477 [place] [id number]. Swathi Reis NEUT # 9.6 103/ul Critically high 1.4-6.5 [facility] Comment on above: Performed By: #### C BC ####[facility] Jtvovglhwl6801 [place] [id number]. Swathi Chato Neutrophils/100 WBC (Bld) 78.4 % Critically high 43.0-75.0 [facility] Comment on above: Performed By: #### C BC ####[facility] Rldbpgyrqg0297 [place] [phone]. Swathi Reis Platelet mean volume (Bld) [Entitic vol] 10.4 fL Normal 9.5-13.5 [facility] Comment on above: Performed By: #### C BC ####[facility] Dxxgednmem3809 [place] [id number]. Swathi Reis PLT 338 103/ul Normal 150-450 [facility] Comment on above: Performed By: #### C BC ####[facility] Zwkplizztp4040 [place] [phone]. Swathi Reis RBC 3.55 106/ul Critically low 4.20-5.40 [facility] Comment on above: Performed By: #### C BC ####[facility] Xmmofdfdvb7200 [place] [phone]. Swathi Reis WBC 12.2 103/ul Critically high 4.0-11.0 [facility] Comment on above: Performed By: #### C BC ####[facility] Lqnrkncryd9367 [place] [phone]. Swathi Reis DIGOXINon 08-22-2022 DIG 1.5 ng/mL Normal 0.9-2.0 [facility] Comment on above: Performed By: #### D IG ####[facility] Lurlcrizvt9869 [place] [phone]. Swathi Reis POINT OF CARE GLUCOSEon 07-26 Glucose [Mass/Vol] 222 mg/dL Critically high 74-106 [facility] Comment on above: Performed By: #### P OCGLUC ####[facility] Bvzuqbquks7261 [place] [phone]. Swathi Reis Glucose [Mass/Vol] 133 mg/dL Critically high 74-106 [facility] Comment on above: Performed By: #### P OCGLUC ####[facility] Ziowsutgcw4393 [place] [phone]. Swathi Reis Glucose [Mass/Vol] 299 mg/dL Critically high 74-106 [facility] Comment on above: Performed By: #### P OCGLUC ####[facility] Iokwvrrihd4697 [place] [address]Dr. Swathi Reis Glucose [Mass/Vol] 151 mg/dL Critically high 74-106 T [facility] Comment on above: Performed By: #### P OCGLUC ####[facility] Smkfxvpgiw4564 [place] [address]Dr. Swathi Reis PROF 14(COMP METB)on 022 Albumin [Mass/Vol] 2.4 g/dL Critically low 3.4-5.0 [facility] Comment on above: Performed By: #### C MP, BNP ####[facility] Txrwmcyrtq2941 [place] [address]Dr. Swathi Reis Albumin/Globulin [Mass ratio] 0.6 {ratio} Normal [facility] Comment on above: Performed By: #### C MP, BNP ####[facility] Gmopdxbvgl4925[address] [place], [place] [address]Dr. Swathi Reis ALP [Catalytic activity/Vol] 98 U/L Normal 46-116 [facility] Comment on above: Performed By: #### C MP, BNP ####[facility] Rkjnfhyblw9112[address] [place], [place] [address]Dr. Swathi Reis ALT [Catalytic activity/Vol] 13 U/L Critically low 14-59 [facility] Comment on above: Performed By: #### C MP, BNP ####[facility] Uaxlijrujq312[address] [place], [place] [address]Dr. Swathi Reis Anion gap [Moles/Vol] 12.4 mmol/L Normal [facility] Comment on above: Performed By: #### C MP, BNP ####[facility] Bzqmtvxdlx067[address] [place], [place] [address]Dr. Swathi Reis AST [Catalytic activity/Vol] 23 U/L Normal 15-37 [facility] Comment on above: Performed By: #### C MP, BNP ####[facility] Xmlfqtryzs5938[address] [place], [place] [address]Dr. Swathi Reis Bilirubin [Mass/Vol] 0.6 mg/dL Normal 0.2-1.0 [facility] Comment on above: Performed By: #### C MP, BNP ####[facility] Fbjbtbcihh0611 [place] [address]Dr. Swathi Reis Calcium [Mass/Vol] 8.9 mg/dL Normal 8.5-10.1 [facility] Comment on above: Performed By: #### C MP, BNP ####[facility] Tqqrwckmyk7430 [place] [address]Dr. Swathi Reis Chloride [Moles/Vol] 100 mmol/L Normal 98-107 [facility] Comment on above: Performed By: #### C MP, BNP ####[facility] Filcaihrxn5419 [place] [address]Dr. Swathi Reis CO2 [Moles/Vol] 30.6 mmol/L Normal 21.0-32.0 [facility] Comment on above: Performed By: #### C MP, BNP ####[facility] Srrnboifvu007[address] [place], [place] [address]Dr. Swathi Reis Creatinine [Mass/Vol] 1.54 mg/dL Critically high 0.55-1.02 [facility] Comment on above: Performed By: #### C MP, BNP ####[facility] Cyduwplmqa162[address] [place], [place] [address]Dr. Swathi Reis EGFR-AF MAURITANIAN 40 mL/min/1.73m2 Critically low >=60 [facility] Comment on above: Performed By: #### C MP, BNP ####[facility] Iujoelornk416[address] [place], [place] [address]Dr. Swathi Reis EGFR-NON AF MAURITANIAN 33 mL/min/1.73m2 Critically low >=60 [facility] Comment on above: Performed By: #### C MP, BNP ####[facility] Tgovvpedmy407[address] [place], [place] [address]Dr. Swathi Reis Globulin (S) [Mass/Vol] 3.9 g/dL Normal [facility] Comment on above: Performed By: #### C MP, BNP ####[facility] Olzqmbdxxu78[address] [place], [place] [address]Dr. Swathi Reis Glucose [Mass/Vol] 143 mg/dL Critically high 74-106 T [facility] Comment on above: Performed By: #### C MP, BNP ####[facility] Ffirvtlhtd2340[address] [place], [place] [address]Dr. Inessatracy Reis Potassium [Moles/Vol] 4.0 mmol/L Normal 3.5-5.1 [facility] Comment on above: Performed By: #### C MP, BNP ####[facility] Imtgfxdxkl219296 [address] [place], [place] [address]Dr. Swathi Reis Protein [Mass/Vol] 6.3 g/dL Critically low 6.4-8.2 Th [facility] Comment on above: Performed By: #### C MP, BNP ####[facility] Filtsydvnr977[address] [place], [place] [address]Dr. Swathi Reis Sodium [Moles/Vol] 139 mmol/L Normal 136-145 [facility] Comment on above: Performed By: #### C MP, BNP ####[facility] Ttocgdiofy050[address] [place], [place] [address]Dr. Swathi Reis Urea nitrogen [Mass/Vol] 27.0 mg/dL Critically high 7.0-18.0 [facility] Comment on above: Performed By: #### C MP, BNP ####[facility] Khjulmaexj199[address] [place], [place] [address]Dr. Swathi Reis Urea nitrogen/Creatinine [Mass ratio] 17.5 mg/mg Normal [facility] Comment on above: Performed By: #### C MP, BNP ####[facility] Ixngzcrsnv0123[address] [place], [place] [address]Dr. Swathi Reis VANCOMYCIN TROUGHon 08-22-20 VANCOMYCIN TROUGH 13.2 ug/ml Normal 5.0-20.0 [facility] Comment on above: Performed By: #### V ANCT ####[facility] Eogmxqmrgk5827[address] [place], [place] [address]Dr. Swathi Reis XR CHEST 2 Von 08-22-2022 XR CHEST 2 V Normal [facility] BNPon 08-21-2022 Natriuretic peptide B (Bld) [Mass/Vol] 3683.0 pg/mL Critically high <=1,800.0 [facility] Comment on above: Performed By: #### C MP, BNP ####[facility] Bvmhtqgjqh636[address] [place], [place] [address]Dr. Swathi Reis CBC AUTO DIFFon 08-21-2022 BASO # 0.1 103/ul Normal 0.0-0.1 [facility] Comment on above: Performed By: #### C BC ####[facility] Jdvuqxiirf676[address] [place], [place] [address]Dr. Swathi Chato Basophils/100 WBC (Bld) 0.4 % Normal 0.2-2.0 [facility] Comment on above: Performed By: #### C BC ####[facility] Omnvcnsklh204996 [address] [place], [place] [address]Dr. Swathi Reis EO # 0.2 103/ul Normal 0.0-0.7 [facility] Comment on above: Performed By: #### C BC ####[facility] Elbzzhznjc937[address] [place], [place] [address]Dr. Swathi Chato Eosinophils/100 WBC (Bld) 1.8 % Normal 0.9-7.0 [facility] Comment on above: Performed By: #### C BC ####[facility] Xlytcsvaht1900[address] [place], [place] [address]Dr. Swathi Reis Erythrocyte distribution width (RBC) [Ratio] 14.4 % Normal 11.0-15.0 [facility] Comment on above: Performed By: #### C BC ####[facility] Qfxsxndxcv6213[address] [place], [place] [address]Dr. Inessatracy Chato Hematocrit (Bld) [Volume fraction] 33.5 % Critically low 36.0-48.0 [facility] Comment on above: Performed By: #### C BC ####[facility] Dgckjxyakh210296 [address] [place], [place] [address]Dr. Inessatracy Chato Hemoglobin (Bld) [Mass/Vol] 10.8 g/dL Critically low 12.0-16.0 [facility] Comment on above: Performed By: #### C BC ####[facility] Jommtohprz65[address] [place] [address]Dr. Swathi Reis IG # 0.06 10e3/ul Critically high 0.00-0.03 [facility] Comment on above: Performed By: #### C BC ####[facility] Iuqgcogvyv1369 [place] [address]Dr. Swathi Chato IG % 0.5 % Normal 0.0-0.5 [facility] Comment on above: Performed By: #### C BC ####[facility] Hpmwiuiora7105 [place] [address]DrOtto Wylietracy Chato LYMPH # 0.9 103/ul Critically low 1.2-3.8 [facility] Comment on above: Performed By: #### C BC ####[facility] Pcsaayblvx170[address] [place], [place] [address]Dr. Swathi Chato Lymphocytes/100 WBC (Bld) 7.2 % Critically low 20.5-60.0 [facility] Comment on above: Performed By: #### C BC ####[facility] Wmkogpbcof759[address] [place], [place] [address]DrOtto Inessatracy Reis MANUAL DIFF REQ NO Normal [facility] Comment on above: Performed By: #### C BC ####[facility] Vlyqbrirzx312[address] [place], [place] [address]DrOtto Swathi Reis MCH (RBC) [Entitic mass] 29.0 pg Normal 26.7-34.0 [facility] Comment on above: Performed By: #### C BC ####[facility] Khrskfpyhi388[address] [place], [place] [address]DrOtto Swathi Reis MCHC (RBC) [Mass/Vol] 32.2 g/dL Normal 29.9-35.2 [facility] Comment on above: Performed By: #### C BC ####[facility] Dhnfnbisqe2310[address] [place], [place] [address]DrOtto Swathi Chato MCV (RBC) [Entitic vol] 90.1 fL Normal 81.0-99.0 [facility] Comment on above: Performed By: #### C BC ####[facility] Qlgmffgalm3622[address] [place], [place] [address]Dr. Swathi Reis MONO # 0.8 103/ul Normal 0.3-0.8 [facility] Comment on above: Performed By: #### C BC ####[facility] Gwyppbzeji4167 [place] [address]Dr. Swathi Reis Monocytes/100 WBC (Bld) 6.3 % Normal 1.7-12.0 [facility] Comment on above: Performed By: #### C BC ####[facility] Tjwilrqzha7824 [place] [address]Dr. Swathi Reis NEUT # 10.7 103/ul Critically high 1.4-6.5 [facility] Comment on above: Performed By: #### C BC ####[facility] Wyyhcdckze6741 [place] [address]Dr. Swathi Reis Neutrophils/100 WBC (Bld) 83.8 % Critically high 43.0-75.0 [facility] Comment on above: Performed By: #### C BC ####[facility] Mbrkqbvlll5464[address] [place], [place] [address]Dr. Swathi Reis Platelet mean volume (Bld) [Entitic vol] 10.7 fL Normal 9.5-13.5 [facility] Comment on above: Performed By: #### C BC ####[facility] Evbsoriecl832[address] [place], [place] [address]Dr. Swathi Reis PLT 324 103/ul Normal 150-450 [facility] Comment on above: Performed By: #### C BC ####[facility] Xxpdwcwqkd3036 [place] [address]Dr. Swathi Reis RBC 3.72 106/ul Critically low 4.20-5.40 [facility] Comment on above: Performed By: #### C BC ####[facility] Cyywfghxhm2828 [place] [address]Dr. Swathi Reis WBC 12.8 103/ul Critically high 4.0-11.0 [facility] Comment on above: Performed By: #### C BC ####[facility] Tzzdcabfbn1326 [place] [address]Dr. Swathi Reis DIGOXINon 11-29-2022 DIG 1.3 ng/mL Normal 0.9-2.0 [facility] Comment on above: Performed By: #### D IG ####[facility] Imcdaydwwm5[address] [place] [address]Dr. Swathi Reis POINT OF CARE GLUCOSEon 07-25 Glucose [Mass/Vol] 129 mg/dL Critically high 74-106 [facility] Comment on above: Performed By: #### P OCGLUC ####[facility] Mdhmllmuwa7934 [place] [address]Dr. Swathi Reis Glucose [Mass/Vol] 145 mg/dL Critically high -106 [facility] Comment on above: Performed By: #### P OCGLUC ####[facility] Gkckmxkgaf7741 [place] [address]Dr. Swathi Reis Glucose [Mass/Vol] 366 mg/dL Critically high -106 [facility] Comment on above: Performed By: #### P OCGLUC ####[facility] Phjnservkg1299 [place] [address]Dr. Swathi Reis Glucose [Mass/Vol] 149 mg/dL Critically high -106 [facility] Comment on above: Performed By: #### P OCGLUC ####[facility] Kufcrbkmno1692 [place] [address]Dr. Swathi Reis PROF 14(COMP METB)on 022 Albumin [Mass/Vol] 2.4 g/dL Critically low 3.4-5.0 [facility] Comment on above: Performed By: #### C MP, BNP ####[facility] Cjwpctozyg8842 [place] [address]Dr. Swathi Reis Albumin/Globulin [Mass ratio] 0.5 {ratio} Normal [facility] Comment on above: Performed By: #### C MP, BNP ####[facility] Dxqkzfsoer0441 [place] [address]Dr. Swathi Reis ALP [Catalytic activity/Vol] 93 U/L Normal 46-116 [facility] Comment on above: Performed By: #### C MP, BNP ####[facility] Qgfyncpzls158[address] [place], [place] [address]Dr. Swathi Reis ALT [Catalytic activity/Vol] 11 U/L Critically low 14-59 [facility] Comment on above: Performed By: #### C MP, BNP ####[facility] Zbggdcbdsj8927[address] [place], [place] [address]Dr. Swathi Reis Anion gap [Moles/Vol] 9.8 mmol/L Normal [facility] Comment on above: Performed By: #### C MP, BNP ####[facility] Yrshnbbmqv4428[address] [place], [place] [address]Dr. Swathi Reis AST [Catalytic activity/Vol] 14 U/L Critically low 15-37 [facility] Comment on above: Performed By: #### C MP, BNP ####[facility] Aluvzmyxop015[address] [place], [place] [address]Dr. Swathi Reis Bilirubin [Mass/Vol] 0.6 mg/dL Normal 0.2-1.0 [facility] Comment on above: Performed By: #### C MP, BNP ####[facility] Iolmhizyqd1617[address] [place], [place] [address]Dr. Swathi Reis Calcium [Mass/Vol] 9.4 mg/dL Normal 8.5-10.1 [facility] Comment on above: Performed By: #### C MP, BNP ####[facility] Avuzcyyxpq040[address] [place], [place] [address]Dr. Swathi Reis Chloride [Moles/Vol] 102 mmol/L Normal 98-107 [facility] Comment on above: Performed By: #### C MP, BNP ####[facility] Nzftwyxqhd978[address] [place], [place] [address]Dr. Swathi Reis CO2 [Moles/Vol] 33.4 mmol/L Critically high 21.0-32.0 [facility] Comment on above: Performed By: #### C MP, BNP ####[facility] Icgpulrpvn430[address] [place], [place] [address]Dr. Swathi Reis Creatinine [Mass/Vol] 1.79 mg/dL Critically high 0.55-1.02 [facility] Comment on above: Performed By: #### C MP, BNP ####[facility] Icsebdnrek9256 [place] [address]Dr. Swathi Reis EGFR-AF MAURITANIAN 33 mL/min/1.73m2 Critically low >=60 [facility] Comment on above: Performed By: #### C MP, BNP ####[facility] Grwdncdkvt1315 [place] [address]Dr. Swathi Reis EGFR-NON AF MAURITANIAN 27 mL/min/1.73m2 Critically low >=60 [facility] Comment on above: Performed By: #### C MP, BNP ####[facility] Uoldqthsrd844[address] [place], [place] [address]Dr. Swathi Chato Globulin (S) [Mass/Vol] 4.9 g/dL Normal [facility] Comment on above: Performed By: #### C MP, BNP ####[facility] Lnbuwrtuah946[address] [place], [place] [address]Dr. Inessatracy Chato Glucose [Mass/Vol] 121 mg/dL Critically high 74-106 [facility] Comment on above: Performed By: #### C MP, BNP ####[facility] Nihqducydu350[address] [place], [place] [address]Dr. Swathi Chato Potassium [Moles/Vol] 3.2 mmol/L Critically low 3.5-5.1 [facility] Comment on above: Performed By: #### C MP, BNP ####[facility] Fwqtpwmmke246[address] [place], [place] [address]Dr. Swathi Chato Protein [Mass/Vol] 7.3 g/dL Normal 6.4-8.2 [facility] Comment on above: Performed By: #### C MP, BNP ####[facility] Nmwfjrltoy235[address] [place], [place] [address]Dr. Swathi Reis Sodium [Moles/Vol] 142 mmol/L Normal 136-145 [facility] Comment on above: Performed By: #### C MP, BNP ####[facility] Ugbteebeqy423[address] [place], [place] [address]Dr. Inessatracy Chato Urea nitrogen [Mass/Vol] 32.0 mg/dL Critically high 7.0-18.0 [facility] Comment on above: Performed By: #### C MP, BNP ####[facility] Qfhgakqgvi7812[address] [place], [place] [address]Dr. Swathi Reis Urea nitrogen/Creatinine [Mass ratio] 17.9 mg/mg Normal [facility] Comment on above: Performed By: #### C MP, BNP ####[facility] Shhashkepp5900[address] [place], [place] [address]Dr. Swathi Reis BNPon 08-20-2022 Natriuretic peptide B (Bld) [Mass/Vol] 7302.0 pg/mL Critically high <=1,800.0 [facility] Comment on above: Performed By: #### C MP, BNP ####[facility] Xftkpnlooi779[address] [place], [place] [address]Dr. Swathi Chato C. DIFF PCRon 08-20-2022 C. DIFFICILE PCR Positive Critically abnormal NEGATIVE [facility] Comment on above: Performed By: #### C DIFPOC ####[facility] Pxtdjnrkdi150396 [address] [place], [place] [address]Dr. Swathi Reis CBC AUTO DIFFon 08-20-2022 BASO # 0.1 103/ul Normal 0.0-0.1 [facility] Comment on above: Performed By: #### C BC ####[facility] Bckcmznoqm605[address] [place], [place] [address]Dr. Swathi Reis Basophils/100 WBC (Bld) 0.5 % Normal 0.2-2.0 [facility] Comment on above: Performed By: #### C BC ####[facility] Yxhvbbjsly3238[address] [place], [place] [address]Dr. Swathi Chato EO # 0.1 103/ul Normal 0.0-0.7 [facility] Comment on above: Performed By: #### C BC ####[facility] Pwugbndzud417[address] [place], [place] [address]Dr. Swathi Chato Eosinophils/100 WBC (Bld) 0.3 % Critically low 0.9-7.0 [facility] Comment on above: Performed By: #### C BC ####[facility] Xzwrcplpbr5243 [place] [address]Dr. Swathi Reis Erythrocyte distribution width (RBC) [Ratio] 14.5 % Normal 11.0-15.0 [facility] Comment on above: Performed By: #### C BC ####[facility] Ixvjlzcqok6[address] [place] [address]Dr. Swathi Reis Hematocrit (Bld) [Volume fraction] 31.4 % Critically low 36.0-48.0 [facility] Comment on above: Performed By: #### C BC ####[facility] Vahpqtcxxq209[address] [place], [place] [address]Dr. Swathi Reis Hemoglobin (Bld) [Mass/Vol] 10.3 g/dL Critically low 12.0-16.0 [facility] Comment on above: Performed By: #### C BC ####[facility] Bcyaebjpps13119[address] [place], [place] [address]Dr. Swathi Reis IG # 0.12 10e3/ul Critically high 0.00-0.03 [facility] Comment on above: Performed By: #### C BC ####[facility] Rgdodqzvph5635[address] [place], [place] [address]Dr. Swathi Reis IG % 0.7 % Critically high 0.0-0.5 [facility] Comment on above: Performed By: #### C BC ####[facility] Uuilwqfkvi686[address] [place], [place] [address]Dr. Swathi Reis LYMPH # 0.9 103/ul Critically low 1.2-3.8 [facility] Comment on above: Performed By: #### C BC ####[facility] Cmblpcmiwp205[address] [place], [place] [address]Dr. Swathi Reis Lymphocytes/100 WBC (Bld) 5.6 % Critically low 20.5-60.0 [facility] Comment on above: Performed By: #### C BC ####[facility] Prllodnrgt9840[address] [place], [place] [address]Dr. Swathi Chato MANUAL DIFF REQ NO Normal [facility] Comment on above: Performed By: #### C BC ####[facility] Uvrdyqxzul9141 [place] [id number]. Swathi Chato MCH (RBC) [Entitic mass] 29.3 pg Normal 26.7-34.0 [facility] Comment on above: Performed By: #### C BC ####[facility] Nejlgjdcls4860 [place] [id number]. Swathi Chato MCHC (RBC) [Mass/Vol] 32.8 g/dL Normal 29.9-35.2 [facility] Comment on above: Performed By: #### C BC ####[facility] Sgsczlthuz8[address] [place] [address]Dr. Inessatracy Reis MCV (RBC) [Entitic vol] 89.5 fL Normal 81.0-99.0 [facility] Comment on above: Performed By: #### C BC ####[facility] Hagxrqkjbg2920[address] [place], [place] [address]Dr. Swathi Reis MONO # 0.9 103/ul Critically high 0.3-0.8 [facility] Comment on above: Performed By: #### C BC ####[facility] Kehixnyyka84[address] [place], [place] [address]Dr. Swathi Reis Monocytes/100 WBC (Bld) 5.6 % Normal 1.7-12.0 [facility] Comment on above: Performed By: #### C BC ####[facility] Cyloeibwzg4922[address] [place], [place] [address]Dr. Swatih Reis NEUT # 14.1 103/ul Critically high 1.4-6.5 [facility] Comment on above: Performed By: #### C BC ####[facility] Hickrwxocc0087[address] [place], [place] [address]Dr. Swathi Reis Neutrophils/100 WBC (Bld) 87.3 % Critically high 43.0-75.0 [facility] Comment on above: Performed By: #### C BC ####[facility] Osccdebfxx[address] [place] [place], [place] [address]Dr. Swathi Reis Platelet mean volume (Bld) [Entitic vol] 10.8 fL Normal 9.5-13.5 [facility] Comment on above: Performed By: #### C BC ####[facility] [address]iscvzpruo[address] [place] [phone]. Swathi Reis PLT 303 103/ul Normal 150-450 [facility] Comment on above: Performed By: #### C BC ####[facility] Wxqyycldfd95[address] [place] [phone]. Swathi Reis RBC 3.51 106/ul Critically low 4.20-5.40 [facility] Comment on above: Performed By: #### C BC ####[facility] Unumhnvqeb70[address] [place] [phone]. Swathi Reis WBC 16.2 103/ul Critically high 4.0-11.0 [facility] Comment on above: Performed By: #### C BC ####[facility] [address]wlduxxtg[address] [place] [address]Dr. Swathi Reis DIGOXINon 08-20-2022 DIG 1.2 ng/mL Normal 0.9-2.0 [facility] Comment on above: Performed By: #### D IG ####[facility] Tjuargydgd020[address] [place] [phone]. Swathi Reis POINT OF CARE GLUCOSEon 07-25 Glucose [Mass/Vol] 180 mg/dL Critically high 74-106 [facility] Comment on above: Performed By: #### P OCGLUC ####[facility] Vbywhoaqlf[address] [place] [address]Dr. Swathi Reis Glucose [Mass/Vol] 115 mg/dL Critically high 74-106 [facility] Comment on above: Performed By: #### P OCGLUC ####[facility] Bbmgmmjlrm[address] [place] [address]Dr. Swathi Reis Glucose [Mass/Vol] 235 mg/dL Critically high 74-106 [facility] Comment on above: Performed By: #### P OCGLUC ####[facility] Vsourxapzr[address] [place] [address]Dr. Swathi Reis PROF 14(COMP METB)on 022 Albumin [Mass/Vol] 2.5 g/dL Critically low 3.4-5.0 Th [facility] Comment on above: Performed By: #### C MP, BNP ####[facility] Bcidyzdlbl4[address] [place] [address]Dr. Swathi Reis Albumin/Globulin [Mass ratio] 0.6 {ratio} Normal [facility] Comment on above: Performed By: #### C MP, BNP ####[facility] Tdqpqfcncx027[address] [place] [address]Dr. Swathi Reis ALP [Catalytic activity/Vol] 69 U/L Normal 46-116 [facility] Comment on above: Performed By: #### C MP, BNP ####[facility] Jioxxwpbbl8334 [place] [address]Dr. Swathi Reis ALT [Catalytic activity/Vol] 11 U/L Critically low 14-59 [facility] Comment on above: Performed By: #### C MP, BNP ####[facility] Oswucqlxfw10[address] [place], [place] [address]Dr. Swathi Reis Anion gap [Moles/Vol] 11.7 mmol/L Normal [facility] Comment on above: Performed By: #### C MP, BNP ####[facility] Vugejzfrhd9533[address] [place], [place] [address]Dr. Swathi Reis AST [Catalytic activity/Vol] 18 U/L Normal 15-37 [facility] Comment on above: Performed By: #### C MP, BNP ####[facility] Rgunjnkvpj[address] [place] [address]Dr. Swathi Reis Bilirubin [Mass/Vol] 1.0 mg/dL Normal 0.2-1.0 [facility] Comment on above: Performed By: #### C MP, BNP ####[facility] Rkhjcwklwg19[address] [place] [address]Dr. Swathi Reis Calcium [Mass/Vol] 9.2 mg/dL Normal 8.5-10.1 [facility] Comment on above: Performed By: #### C MP, BNP ####[facility] Xoylweajyl449[address] [place], [place] [address]Dr. Swathi Reis Chloride [Moles/Vol] 104 mmol/L Normal 98-107 [facility] Comment on above: Performed By: #### C MP, BNP ####[facility] Ycmayvtwlm268[address] [place], [place] [address]Dr. Swathi Reis CO2 [Moles/Vol] 32.7 mmol/L Critically high 21.0-32.0 [facility] Comment on above: Performed By: #### C MP, BNP ####[facility] Fgokcbchbo538[address] [place], [place] [address]Dr. Swathi Reis Creatinine [Mass/Vol] 1.86 mg/dL Critically high 0.55-1.02 [facility] Comment on above: Performed By: #### C MP, BNP ####[facility] Fqivgzbcub0601[address] [place], [place] [address]Dr. Swathi Reis EGFR-AF MAURITANIAN 32 mL/min/1.73m2 Critically low >=60 [facility] Comment on above: Performed By: #### C MP, BNP ####[facility] Danalwcpok2955[address] [place], [place] [address]Dr. Swathi Reis EGFR-NON AF MAURITANIAN 26 mL/min/1.73m2 Critically low >=60 [facility] Comment on above: Performed By: #### C MP, BNP ####[facility] Kfxxnpsepn0630[address] [place], [place] [address]Dr. Swathi Reis Globulin (S) [Mass/Vol] 4.2 g/dL Normal [facility] Comment on above: Performed By: #### C MP, BNP ####[facility] Tkxjgnunjq718[address] [place], [place] [address]Dr. Swathi Chato Glucose [Mass/Vol] 135 mg/dL Critically high 74-106 T [facility] Comment on above: Performed By: #### C MP, BNP ####[facility] Izcmtiatpr3432[address] [place], [place] [address]Dr. Swathi Reis Potassium [Moles/Vol] 3.4 mmol/L Critically low 3.5-5.1 [facility] Comment on above: Performed By: #### C MP, BNP ####[facility] Saeznwnrcv5901[address] [place], [place] [address]Dr. Swathi Reis Protein [Mass/Vol] 6.7 g/dL Normal 6.4-8.2 [facility] Comment on above: Performed By: #### C MP, BNP ####[facility] Pmufukfsvw528[address] [place], [place] [address]Dr. Swathi Reis Sodium [Moles/Vol] 145 mmol/L Normal 136-145 [facility] Comment on above: Performed By: #### C MP, BNP ####[facility] Wzvokovzpt9817[address] [place], [place] [address]Dr. Swathi Reis Urea nitrogen [Mass/Vol] 29.0 mg/dL Critically high 7.0-18.0 [facility] Comment on above: Performed By: #### C MP, BNP ####[facility] Kqnaikzway5868[address] [place], [place] [address]Dr. Swathi Reis Urea nitrogen/Creatinine [Mass ratio] 15.6 mg/mg Normal [facility] Comment on above: Performed By: #### C MP, BNP ####[facility] Mvslibvlbr8412[address] [place], [place] [address]Dr. Swathi Reis XR CHEST 1 Von 08-20-2022 XR CHEST 1 V Normal [facility] BLOOD GASES BTYon 08-19-2022 02 MODE BIPAP Normal [facility] Comment on above: Performed By: #### A BG ####[facility] Wanxhesbdn3733[address] [place], [place] [address]Dr. Swathi Reis ALLENS TEST Positive Normal [facility] Comment on above: Performed By: #### A BG ####[facility] Nznavbjzeu9[address] [place], [place] [address]Dr. Swathi Reis Base excess Calc (Bld) [Moles/Vol] 0.8 mmol/L Normal -2.0-2.0 [facility] Comment on above: Performed By: #### A BG ####[facility] Axvgmjubcm0705[address] [place], [place] [address]Dr. Swathi Reis BIPAP PRESSURE 12/6 Normal [facility] Comment on above: Performed By: #### A BG ####[facility] Ayusnwckuo34[address] [place] [address]Dr. Swathi Reis CPAP Normal [facility] Comment on above: Performed By: #### A BG ####[facility] Tzbkpxhmfo601[address] [place], [place] [address]Dr. Swathi Reis FIO2 90.00 % Normal [facility] Comment on above: Performed By: #### A BG ####[facility] Olrrcivatp925[address] [place], [place] [address]Dr. Swathi Reis HCO3 (Bld) [Moles/Vol] 25.9 mmol/L Normal 22.0-26.0 [facility] Comment on above: Performed By: #### A BG ####[facility] Hrqshsqxmu517[address] [place], [place] [address]Dr. Swathi Chato LPM Normal [facility] Comment on above: Performed By: #### A BG ####[facility] Dfrteatbek310[address] [place], [place] [address]Dr. Swathi Reis MINUTE VOLUME Normal [facility] Comment on above: Performed By: #### A BG ####[facility] Tvsmtybqcz30[address] [place], [place] [address]Dr. Swathi Reis Oxygen (Bld) [Partial pressure] 95.0 mm[Hg] Normal 80.0-100.0 [facility] Comment on above: Performed By: #### A BG ####[facility] Byfezrrswk4980[address] [place], [place] [address]Dr. Inessatracy Chato Oxygen saturation in Blood 97.7 % Normal 95.0-100.0 [facility] Comment on above: Performed By: #### A BG ####[facility] Gpbdroakpk085[address] [place], [place] [address]Dr. Swathi Reis PCO2 44.2 mmHg Normal 35.0-45.0 [facility] Comment on above: Performed By: #### A BG ####[facility] Vfxusbvfux750[address] [place], [place] [address]Dr. Swathi Reis PEEP Normal [facility] Comment on above: Performed By: #### A BG ####[facility] [address]qhohejwkb30[address] [place] [address]Dr. Swathi Reis pH (Bld) 7.377 [pH] Normal 7.350-7.450 [facility] Comment on above: Performed By: #### A BG ####[facility] Zdkwcytwlj3436 [place] [address]Dr. Swathi Reis PIP [facility] Comment on above: Performed By: #### A BG ####[facility] Kqyaswuwuy7[address] [place] [address]Dr. Swathi Reis PS [facility] Comment on above: Performed By: #### A BG ####[facility] Mnecysywev78[address] [place], [place] [address]Dr. Swathi Reis PUNCTURE SITE RR [facility] Comment on above: Performed By: #### A BG ####[facility] Htbsxdwqng[address] [place], [place] [address]Dr. Swathi Reis RATE [facility] Comment on above: Performed By: #### A BG ####[facility] Gjnydcrptx555[address] [place], [place] [address]Dr. Swathi Reis VENT MODE [facility] Comment on above: Performed By: #### A BG ####[facility] Kiyonumlud26[address] [place], [place] [address]Dr. Swathi Reis [place] [facility] Comment on above: Performed By: #### A BG ####[facility] Tzdraxiixb1330[address] [place], [place] [address]Dr. Swathi Reis BNPon 08-19-2022 Natriuretic peptide B (Bld) [Mass/Vol] 2862.0 pg/mL Critically high <=1,800.0 [facility] Comment on above: Performed By: #### L IPA, BNP ####[facility] Yukhcsxjjl12[address] [place], [place] [address]Dr. Swathi Reis CARDIAC TRINA 3-6on 2 CK [Catalytic activity/Vol] 25 U/L Critically low 26-192 [facility] Comment on above: Performed By: #### C MREP ####[facility] Nlqgsplgtd8572 [place] [phone]. Swathi Reis CK.MB [Mass/Vol] 0.57 ng/mL Normal <=3.60 [facility] Comment on above: Performed By: #### C MREP ####[facility] F[address]zippkst[address] [place] [phone]. Swathi Reis HSTROP 16.6 pg/mL Normal 4.0-51.3 [facility] Comment on above: Result Comment: CUT- OFF POINTS HAVE BEEN ESTABLISHED BASED ON THE FOURTH UNIVERSAL DEFINITIONS OF MYOCARDIALINFARCTION. THE UPPER REFERENCE LIMIT (URL) OF TROPONIN, DEFINED THE 99TH PERCENTILE OFcTnI DISTRIBUTION IN A REFERENCE POPULATION, HAS BEEN CONFIRMED THE DECISION THRESHOLDFOR NM DIAGNOSIS. Performed By: #### C MREP ####[facility] [address]jxedwct25[address] [place] [address]Dr. Swathi Reis CK [Catalytic activity/Vol] 26 U/L Normal 26-192 [facility] Comment on above: Performed By: #### C MREP ####[facility] Bzrysxoxld5951 [place] [phone]. Swathi Reis CK.MB [Mass/Vol] 0.59 ng/mL Normal <=3.60 [facility] Comment on above: Performed By: #### C MREP ####[facility] Solcfodvru5583 [place] [phone]. Swathi Reis HSTROP 16.3 pg/mL Normal 4.0-51.3 [facility] Comment on above: Result Comment: CUT- OFF POINTS HAVE BEEN ESTABLISHED BASED ON THE FOURTH UNIVERSAL DEFINITIONS OF MYOCARDIALINFARCTION. THE UPPER REFERENCE LIMIT (URL) OF TROPONIN, DEFINED THE 99TH PERCENTILE OFcTnI DISTRIBUTION IN A REFERENCE POPULATION, HAS BEEN CONFIRMED THE DECISION THRESHOLDFOR NM DIAGNOSIS. Performed By: #### C MREP ####[facility] Gnpgovfdkz5406 [place] [address]Dr. Swathi Reis CBC AUTO DIFFon 08-19-2022 BASO # 0.1 103/ul Normal 0.0-0.1 [facility] Comment on above: Performed By: #### C BC ####[facility] Hmkubwuref1572 [place] [phone]. Swathi Reis Basophils/100 WBC (Bld) 0.4 % Normal 0.2-2.0 [facility] Comment on above: Performed By: #### C BC ####[facility] Zqrhnaiuez6962 [place] [phone]. Swathi Reis EO # 0.1 103/ul Normal 0.0-0.7 [facility] Comment on above: Performed By: #### C BC ####[facility] Iqnsxooqvk745[address] [place], [place] [address]Dr. Swathi Reis Eosinophils/100 WBC (Bld) 0.4 % Critically low 0.9-7.0 [facility] Comment on above: Performed By: #### C BC ####[facility] Syeohmvsrj343[address] [place], [place] [address]Dr. Swathi Reis Erythrocyte distribution width (RBC) [Ratio] 14.2 % Normal 11.0-15.0 [facility] Comment on above: Performed By: #### C BC ####[facility] Tklmmxmuhj90[address] [place], [place] [address]Dr. Swtahi Reis Hematocrit (Bld) [Volume fraction] 34.4 % Critically low 36.0-48.0 [facility] Comment on above: Performed By: #### C BC ####[facility] Ptyahjuhwx8939 [place] [phone]. Swathi Reis Hemoglobin (Bld) [Mass/Vol] 11.2 g/dL Critically low 12.0-16.0 [facility] Comment on above: Performed By: #### C BC ####[facility] Kgmgzmozep8806 [place] [phone]. Swathi Reis IG # 0.08 10e3/ul Critically high 0.00-0.03 [facility] Comment on above: Performed By: #### C BC ####[facility] Wfpqvptrcs[address] [place], [place] [address]Dr. Swathi Reis IG % 0.4 % Normal 0.0-0.5 [facility] Comment on above: Performed By: #### C BC ####[facility] Vpjudjpsnj0051 [place] [phone]. Swathi Reis LYMPH # 0.8 103/ul Critically low 1.2-3.8 [facility] Comment on above: Performed By: #### C BC ####[facility] J[address]ix[address]unsi[address] [place], [place] [address]Zz. Swathi Chato Lymphocytes/100 WBC (Bld) 4.1 % Critically low 20.5-60.0 [facility] Comment on above: Performed By: #### C BC ####[facility] Rvsiapltyc6150 [place] [phone]. Inessatracy Reis MANUAL DIFF REQ NO Normal [facility] Comment on above: Performed By: #### C BC ####[facility] Mvzzucfrfj0236 [place] [phone]. Swathi Chato MCH (RBC) [Entitic mass] 29.1 pg Normal 26.7-34.0 [facility] Comment on above: Performed By: #### C BC ####[facility] Pstwhwvixz[address] [place] [phone]. Swathi Reis MCHC (RBC) [Mass/Vol] 32.6 g/dL Normal 29.9-35.2 [facility] Comment on above: Performed By: #### C BC ####[facility] Pligwrxvcs5173 [place] [phone]. Swathi Reis MCV (RBC) [Entitic vol] 89.4 fL Normal 81.0-99.0 [facility] Comment on above: Performed By: #### C BC ####[facility] Axypdulejh8699 [place] [phone]. Swathi Chato MONO # 1.1 103/ul Critically high 0.3-0.8 [facility] Comment on above: Performed By: #### C BC ####[facility] Fneqqaskax7306 [place] [phone]. Swathi Reis Monocytes/100 WBC (Bld) 5.8 % Normal 1.7-12.0 [facility] Comment on above: Performed By: #### C BC ####[facility] Lkcbkkugpy2507 [place] [phone]. Swathi Reis NEUT # 16.4 103/ul Critically high 1.4-6.5 [facility] Comment on above: Performed By: #### C BC ####[facility] Vrqinipswl2684 [place] [phone]. Swathi Reis Neutrophils/100 WBC (Bld) 88.9 % Critically high 43.0-75.0 [facility] Comment on above: Performed By: #### C BC ####[facility] Ilflyzmsqf0767 [place] [phone]. Swathi Reis Platelet mean volume (Bld) [Entitic vol] 10.6 fL Normal 9.5-13.5 [facility] Comment on above: Performed By: #### C BC ####[facility] Dgvfdozkqo0347 [place] [phone]. Swathi Reis PLT 366 103/ul Normal 150-450 [facility] Comment on above: Performed By: #### C BC ####[facility] Xygyrwypnb9099 [place] [phone]. Swathi Reis RBC 3.85 106/ul Critically low 4.20-5.40 [facility] Comment on above: Performed By: #### C BC ####[facility] Dfcgwofqid0728 [place] [phone]. Swathi Reis WBC 18.4 103/ul Critically high 4.0-11.0 [facility] Comment on above: Performed By: #### C BC ####[facility] Hhnktlydhf7274 [place] [phone]. Swathi Reis CTA CHEST WO W CONon 022 CTA CHEST WO W CON Normal [facility] CULTURE BLOODon 08-19-2022 Microscopic examination of blood, culture Culture Observations: NO GROWTH AT 5 DAYS. Normal [facility] Comment on above: Performed By: #### B LDCX2 ####[facility] Fqhurbzthy[address] [place], [place] [address]Dr. Swathi Reis Microscopic examination of blood, culture Culture Observations: NO GROWTH AT 5 DAYS. Normal [facility] Comment on above: Performed By: #### B LDCX1 ####[facility] Clermfbtqo39[address] [place], [place] [address]Dr. Swathi Reis [facility]25 SARS-CoV-2 (COVID-19) RNA ÓSCAR+probe Ql (Unsp spec) Not detected Normal NOT DETECTED [facility] Comment on above: Result Comment: When [...] for this test is supported by the [place] of [employer] and Human Service's declaration that [...] be used). Performed By: #### C VDTBH ####[facility] Qyftptmiwh606[address] [place], [place] [address]Dr. Swathi Reis Performed By: #### R SPLUS ####[facility] Xoqqyroewf39[address] [place], [place] [address]Dr. Swathi Reis LACTATE/LACTIC ACIDon 2021 Lactate [Moles/Vol] 1.5 mmol/L Normal 0.4-1.9 [facility] Comment on above: Performed By: #### L ACT ####[facility] Dpdlzojcmt454[address] [place], [place] [address]Dr. Swathi Reis LIPASEon 08-19-2022 Lipase [Catalytic activity/Vol] 130.0 U/L Normal 73.0-393.0 [facility] Comment on above: Performed By: #### L IPA, BNP ####[facility] Kxjzpaocei[address] [place] [address]Dr. Swathi Reis POINT OF CARE GLUCOSEon 07-25 Glucose [Mass/Vol] 222 mg/dL Critically high [address] [place] [address] Comment on above: Performed By: #### P OCGLUC ####[facility] Ellpwgngya4[address] [place] [address]Dr. Swathi Reis Glucose [Mass/Vol] 166 mg/dL Critically high [address] [place] [address] Comment on above: Performed By: #### P OCGLUC ####[facility] Mzyfqqiaxh35[address] [place], [place] [address]Dr. Swathi Reis Glucose [Mass/Vol] 213 mg/dL Critically high [address] [place] [address] Comment on above: Performed By: #### P OCGLUC ####[facility] Anlazhkrnf46[address] [place], [place] [address]Dr. Inessatracy Reis RESPIRATORY PANEL PLUSon Adenovirus Not detected Normal NOT DETECTED [facility] Comment on above: Performed By: #### R SPLUS ####[facility] Rjcwtgczum7220[address] [place], [place] [address]Dr. Swathi Reis B. Parapertusis Not detected Normal NOT DETECTED [facility] Comment on above: Performed By: #### R SPLUS ####[facility] Fqmvsqvvdt215[address] [place], [place] [address]Dr. Swathi Reis B. Pertussis Not detected Normal NOT DETECTED [facility] Comment on above: Performed By: #### R SPLUS ####[facility] Kazgqgrfpo330396 [address] [place], [place] [address]Dr. Swathi Reis Chlamydia Pneumoniae Not detected Normal NOT DETECTED [facility] Comment on above: Performed By: #### R SPLUS ####[facility] Txpruqpjuw210[address] [place], [place] [address]Dr. Swathi Reis Coronavirus 229E Not detected Normal NOT DETECTED [facility] Comment on above: Performed By: #### R SPLUS ####[facility] Xoiojpdkum4364[address] [place], [place] [address]Dr. Swathi Reis Coronavirus HKU1 Not detected Normal NOT DETECTED [facility] Comment on above: Performed By: #### R SPLUS ####[facility] Cubjxproxi[address] [place] [address]Dr. Swathi Reis Coronavirus NL63 Not detected Normal NOT DETECTED [facility] Comment on above: Performed By: #### R SPLUS ####[facility] Pwykmrramu5023[address] [place], [place] [address]Dr. Swathi Reis Coronavirus OC43 Not detected Normal NOT DETECTED [facility] Comment on above: Performed By: #### R SPLUS ####[facility] Itrflqavya597[address] [place], [place] [address]Dr. Swathi Reis Influenza A H1 2009 Not detected Normal NOT DETECTED [facility] Comment on above: Performed By: #### R SPLUS ####[facility] Umftzlrqow875[address] [place], [place] [address]Dr. Swathi Reis Influenza A H3 Not detected Normal NOT DETECTED [facility] Comment on above: Performed By: #### R SPLUS ####[facility] Gypfrdtkrp178[address] [place], [place] [address]Dr. Swathi Reis Influenza B Not detected Normal NOT DETECTED [facility] Comment on above: Performed By: #### R SPLUS ####[facility] Tixuetcbro680[address] [place], [place] [address]Dr. Swathi Reis Metapneumovirus Not detected Normal NOT DETECTED [facility] Comment on above: Performed By: #### R SPLUS ####[facility] Wfyvkoqqmh301[address] [place], [place] [address]Dr. Swathi Reis Mycoplas. Pneumoniae Not detected Normal NOT DETECTED [facility] Comment on above: Performed By: #### R SPLUS ####[facility] Oemxzurcei679[address] [place], [place] [address]Dr. Swathi Reis Parainfluenza 1 Not detected Normal NOT DETECTED [facility] Comment on above: Performed By: #### R SPLUS ####[facility] Jiabgtwevk9401[address] [place], [place] [address]Dr. Swathi Reis Parainfluenza 2 Not detected Normal NOT DETECTED [facility] Comment on above: Performed By: #### R SPLUS ####[facility] Twohwiztqi5570[address] [place], [place] [address]Dr. Swathi Reis Parainfluenza 3 Not detected Normal NOT DETECTED [facility] Comment on above: Performed By: #### R SPLUS ####[facility] Qophtotswk0067[address] [place], [place] [address]Dr. Swathi Reis Parainfluenza 4 Not detected Normal NOT DETECTED [facility] Comment on above: Performed By: #### R SPLUS ####[facility] Oqvigswgxn312[address] [place], [place] [address]Dr. Swathi Reis Rhino/Enterovirus Not detected Normal NOT DETECTED [facility] Comment on above: Performed By: #### R SPLUS ####[facility] Pybvelrdjq975[address] [place], [place] [address]Dr. Swathi Reis RP2 Header 1 RESPIRATORY PANEL: VIRUSES Normal [facility] Comment on above: Performed By: #### R SPLUS ####[facility] Fevhqfvivj1400[address] [place], [place] [address]Dr. Swathi Reis RP2 Header 2 RESPIRATORY PANEL: BACTERIA Normal [facility] Comment on above: Performed By: #### R SPLUS ####[facility] Cqzbvshwqb[address] [place], [place] [address]Dr. Swathi Reis RSV Not detected Normal NOT DETECTED [facility] Comment on above: Performed By: #### R SPLUS ####[facility] Wwlkchjalx7[address] [place], [place] [address]Dr. Swathi Reis XR CHEST 1 Von 08-19-2022 XR CHEST 1 V Normal [facility] BNPon 08-18-2022 Natriuretic peptide B (Bld) [Mass/Vol] 2955.0 pg/mL Critically high <=1,800.0 [facility] Comment on above: Performed By: #### B SAFETY DIRECTOR ####[facility] Owtjahuybf778[address] [place], [place] [address]Dr. Swathi Reis CARDIAC TRINA ADMITon 022 CK [Catalytic activity/Vol] 26 U/L Normal 26-192 [facility] Comment on above: Performed By: #### B FAY, CMADM ####[facility] Ts[address]cscruw6[address] [place] [phone]. Swathi Reis CK.MB [Mass/Vol] 0.79 ng/mL Normal <=3.60 [facility] Comment on above: Performed By: #### B FAY, CMADM ####[facility] [address]yjuri[address] [place] [id number]. Swathi Reis HSTROP 16.0 pg/mL Normal 4.0-51.3 [facility] Comment on above: Result Comment: CUT- OFF POINTS HAVE BEEN ESTABLISHED BASED ON THE FOURTH UNIVERSAL DEFINITIONS OF MYOCARDIALINFARCTION. THE UPPER REFERENCE LIMIT (URL) OF TROPONIN, DEFINED THE 99TH PERCENTILE OFcTnI DISTRIBUTION IN A REFERENCE POPULATION, HAS BEEN CONFIRMED THE DECISION THRESHOLDFOR NM DIAGNOSIS. Performed By: #### B FAY, CMADM ####[facility] Hpsq[address]htoeg[address] [place] [id number]. Swathi Reis GUANACO 47 ng/mL Normal 9-82 [facility] Comment on above: Performed By: #### B RACQUEL APONTE ####[facility] Xscslhzwhp25[address] [place] [id number]. Swathi Reis CBC AUTO DIFFon 08-18-2022 BASO # 0.1 103/ul Normal 0.0-0.1 [facility] Comment on above: Performed By: #### C BC ####[facility] Otou[address]azwhh[address] [place] [id number]. Swathi Reis Basophils/100 WBC (Bld) 0.4 % Normal 0.2-2.0 [facility] Comment on above: Performed By: #### C BC ####[facility] Jouvkodqqi67[address] [place] [id number]. Swathi Reis EO # 0.1 103/ul Normal 0.0-0.7 [facility] Comment on above: Performed By: #### C BC ####[facility] Cwuggyuzqa5186 [place] [phone]. Swathi Reis Eosinophils/100 WBC (Bld) 0.9 % Normal 0.9-7.0 [facility] Comment on above: Performed By: #### C BC ####[facility] Qtigpffejo[address] [place] [address]Dr. Swathi Reis Erythrocyte distribution width (RBC) [Ratio] 14.2 % Normal 11.0-15.0 [facility] Comment on above: Performed By: #### C BC ####[facility] Fnpxeibvaz[address] [place] [address]Dr. Swathi Reis Hematocrit (Bld) [Volume fraction] 34.1 % Critically low 36.0-48.0 [facility] Comment on above: Performed By: #### C BC ####[facility] Imcytcarxu305[address] [place], [place] [address]Dr. Swathi Reis Hemoglobin (Bld) [Mass/Vol] 11.2 g/dL Critically low 12.0-16.0 [facility] Comment on above: Performed By: #### C BC ####[facility] Ysykjirfvz864[address] [place], [place] [address]DrOtto Reis IG # 0.06 10e3/ul Critically high 0.00-0.03 [facility] Comment on above: Performed By: #### C BC ####[facility] Iewbzmlcct74[address] [place], [place] [address]DrOtto Reis IG % 0.4 % Normal 0.0-0.5 [facility] Comment on above: Performed By: #### C BC ####[facility] Oqlitycbpn417[address] [place], [place] [address]DrOtto Reis LYMPH # 1.4 103/ul Normal 1.2-3.8 [facility] Comment on above: Performed By: #### C BC ####[facility] Sdzccxtndz410[address] [place], [place] [address]DrOtto Reis Lymphocytes/100 WBC (Bld) 10.1 % Critically low 20.5-60.0 [facility] Comment on above: Performed By: #### C BC ####[facility] Bvissohqdd920[address] [place], [place] [address]Dr. Swathi Reis MANUAL DIFF REQ NO Normal [facility] Comment on above: Performed By: #### C BC ####[facility] Rjbcitwapj[address] [place] [address]DrOtto Reis MCH (RBC) [Entitic mass] 29.2 pg Normal 26.7-34.0 [facility] Comment on above: Performed By: #### C BC ####[facility] Efvbdhacnj4408 [place] [address]DrOtto Reis MCHC (RBC) [Mass/Vol] 32.8 g/dL Normal 29.9-35.2 [facility] Comment on above: Performed By: #### C BC ####[facility] Pehytbjufz57[address] [place] [address]DrOtto Reis MCV (RBC) [Entitic vol] 89.0 fL Normal 81.0-99.0 [facility] Comment on above: Performed By: #### C BC ####[facility] Dhsuskojec28[address] [place], [place] [address]DrOtto Reis MONO # 1.1 103/ul Critically high 0.3-0.8 [facility] Comment on above: Performed By: #### C BC ####[facility] Lpudahqbss905[address] [place], [place] [address]DrOtto Reis Monocytes/100 WBC (Bld) 8.3 % Normal 1.7-12.0 [facility] Comment on above: Performed By: #### C BC ####[facility] Bztzzgqyoz4340[address] [place], [place] [address]DrOtto Reis NEUT # 11.0 103/ul Critically high 1.4-6.5 [facility] Comment on above: Performed By: #### C BC ####[facility] Lflxqorxas080[address] [place], [place] [address]DrOtto Reis Neutrophils/100 WBC (Bld) 79.9 % Critically high 43.0-75.0 [facility] Comment on above: Performed By: #### C BC ####[facility] Bemwdlwuzd05[address] [place], [place] [address]DrOtto Reis Platelet mean volume (Bld) [Entitic vol] 10.7 fL Normal 9.5-13.5 [facility] Comment on above: Performed By: #### C BC ####[facility] Cazabhptgq750[address] [place], [place] [address]Df. Swathi Reis PLT 408 103/ul Normal 150-450 [facility] Comment on above: Performed By: #### C BC ####[facility] Vyfcgtsefu3353 [place], [place] [address]Ke. Swathi Reis RBC 3.83 106/ul Critically low 4.20-5.40 [facility] Comment on above: Performed By: #### C BC ####[facility] Jpdhfdpwuc0922 [place], [place] [address]Pm. Swathi Reis WBC 13.8 103/ul Critically high 4.0-11.0 [facility] Comment on above: Performed By: #### C BC ####[facility] Ppcpncnhvc13[address] [place], [place] [address]Ck. Swathi Reis Covid-19 PCR (CVDTB)on 07-25 SARS-CoV-2 (COVID-19) RNA ÓSCAR+probe Ql (Unsp spec) Not detected Normal NOT DETECTED [facility] Comment on above: Result Comment: When [...] for this test is supported by the [place] [employer] and Human Service's declaration that [...] be used). Performed By: #### C VDTBH ####[facility] Gxadyamkan[address] [place], [place] [id number]. Swathi Reis D-DIMERon 08-18-2022 D-DIMER 1.83 mg/L FEU Critically high <=0.59 [facility] Comment on above: Performed By: #### D DIM ####[facility] Zmkmlzwelu380[address] [place], [place] [address]Dr. Swathi [facility] D-DIMER COMMENTS SEE BELOW Normal [facility] Comment on above: Result Comment: Incr [...] generalized hospitalization. Performed By: #### D DIM ####[facility] Sxkdocstuq4632[address] [place], [place] [address]Dr. Swathi [facility] INFLUENZA A AND B AGon 08-18 INFLUENZA A AG Negative Normal NEGATIVE SEE COMMENT [facility] Comment on above: Performed By: #### R SV, INFLUAB ####[facility] Qaxhfaaxlz9[address] [place], [place] [address]Dr. Swathi [facility] INFLUENZA B AG Negative Normal NEGATIVE SEE COMMENT [facility] Comment on above: Performed By: #### R SV, INFLUAB ####[facility] Exoxkmpywb837[address] [place], [place] [address]Dr. Swathi [facility] INFLUPOSH SEE BELOW Normal [facility] Comment on above: Result Comment: NOTE : Live attenuated influenzae vaccine viruses can cause a positive result for a rapid influenza diagnostic test if administered up to 7 days prior to rapid testing. Performed By: #### R SV, INFLUAB ####[facility] Rqqjogqzsl[address] [place], [place] [address]Dr. Inessatracy Reis INFLUPOSHB SEE BELOW Normal [facility] Comment on above: Result Comment: NOTE : Live attenuated influenzae vaccine viruses can cause a positive result for a rapid influenza diagnostic test if administered up to 7 days prior to rapid testing. Performed By: #### R LEI, INFLUAB ####[facility] [address]vihn[address] [place] [address]Dr. Swathi Reis INTERNAL CONTROLS Within Normal Limits Normal Wi thin Normal Limits [facility] Comment on above: Performed By: #### R LEI, INFLUAB ####[facility] V[address]axcuioh[address] [place] [address]Dr. Swathi Reis LACTATE/LACTIC ACIDon 2021 Lactate [Moles/Vol] 1.9 mmol/L Normal 0.4-1.9 [facility] Comment on above: Performed By: #### L ACT ####[facility] Sqwsmvtdmi[address] [place], [place] [address]Dr. Swathi Reis PROF CHEM 8 (BAS METB)on Anion gap [Moles/Vol] 13.9 mmol/L Normal [facility] Comment on above: Performed By: #### RACQUEL Gonsales MP ####[facility] Plsybqxjjf87[address] [place], [place] [address]Dr. Swathi Reis Calcium [Mass/Vol] 9.9 mg/dL Normal 8.5-10.1 [facility] Comment on above: Performed By: #### RACQUEL Gonsales MP ####[facility] Tcjbnupwzp[address] [place], [place] [address]Dr. Swathi Reis Chloride [Moles/Vol] 102 mmol/L Normal 98-107 [facility] Comment on above: Performed By: #### RACQUEL Gonsales MP ####[facility] Aungtoeroo54[address] [place], [place] [address]Dr. Swathi Reis CO2 [Moles/Vol] 29.6 mmol/L Normal 21.0-32.0 [facility] Comment on above: Performed By: #### RACQUEL Gonsales MP ####[facility] Puykmghzjz[address] [place], [place] [address]Dr. Swathi Reis Creatinine [Mass/Vol] 1.61 mg/dL Critically high 0.55-1.02 [facility] Comment on above: Performed By: #### RACQUEL Gonsales MP ####[facility] Datugmarvi[address] [place] [id number]. Swathi Reis EGFR-AF MAURITANIAN 38 mL/min/1.73m2 Critically low >=60 [facility] Comment on above: Performed By: #### B FAY, RACQUEL ####[facility] T[address]whijxww[address] [place] [address]Dr. Swathi Reis EGFR-NON AF MAURITANIAN 31 mL/min/1.73m2 Critically low >=60 [facility] Comment on above: Performed By: #### B FAY, CMADM ####[facility] Hoqpdnmuzg65[address] [place] [address]Dr. Swathi Reis Glucose [Mass/Vol] 192 mg/dL Critically high 74-106 [facility] Comment on above: Performed By: #### B FAY, CMADM ####[facility] Octemaqntm[address] [place] [address]Dr. Swathi Reis Potassium [Moles/Vol] 4.5 mmol/L Normal 3.5-5.1 [facility] Comment on above: Performed By: #### B FAY, CMATRINIDAD ####[facility] Ljewdfupha[address] [place] [address]Dr. Swathi Resi Sodium [Moles/Vol] 141 mmol/L Normal 136-145 [facility] Comment on above: Performed By: #### B FAY, CMADM ####[facility] Baatngprlp[address]1999[address] [place], [place] [address]Dr. Swathi Reis Urea nitrogen [Mass/Vol] 27.0 mg/dL Critically high 7.0-18.0 [facility] Comment on above: Performed By: #### B FAY, CMADM ####[facility] Nvnzzkzlft[address] [place] [address]Dr. Swathi Reis Urea nitrogen/Creatinine [Mass ratio] 16.8 mg/mg Normal [facility] Comment on above: Performed By: #### B FAY, CMADM ####[facility] Aosdypdnbq6[address] [place] [address]Dr. Swathi Chato RSVon 08-18-2022 RSV AG Negative Normal NEGATIVE [facility] Comment on above: Performed By: #### R SV, INFLUAB ####[facility] Zjvhfmdfna13[address] [place], [place] [address]Dr. Swathi Reis BNPon 07-12-2022 Natriuretic peptide B (Bld) [Mass/Vol] 5375.0 pg/mL Critically high <=1,800.0 [facility] Comment on above: Performed By: #### B SAFETY DIRECTOR, CMP ####[facility] Bcyrwijjzx447[address] [place], [place] [address]Dr. Swathi Chato CBC AUTO DIFFon 07-12-2022 BASO # 0.1 103/ul Normal 0.0-0.1 [facility] Comment on above: Performed By: #### C BC ####[facility] Zgomradnzh628[address] [place], [place] [address]Dr. Swathi Reis Basophils/100 WBC (Bld) 0.7 % Normal 0.2-2.0 [facility] Comment on above: Performed By: #### C BC ####[facility] Lnotlnfdka680[address] [place], [place] [address]Dr. Inessatracy Reis EO # 0.3 103/ul Normal 0.0-0.7 [facility] Comment on above: Performed By: #### C BC ####[facility] Fwjdiulmep513[address] [place], [place] [address]Dr. Inessatracy Reis Eosinophils/100 WBC (Bld) 3.2 % Normal 0.9-7.0 [facility] Comment on above: Performed By: #### C BC ####[facility] Litlpmafig2810[address] [place], [place] [address]Dr. Swathi Reis Erythrocyte distribution width (RBC) [Ratio] 13.3 % Normal 11.0-15.0 [facility] Comment on above: Performed By: #### C BC ####[facility] Gwadxstuie338[address] [place], [place] [address]DrOtto Reis Hematocrit (Bld) [Volume fraction] 29.9 % Critically low 36.0-48.0 [facility] Comment on above: Performed By: #### C BC ####[facility] Ynnbjadjqp425[address] [place], [place] [address]Dr. Swathi Reis Hemoglobin (Bld) [Mass/Vol] 9.7 g/dL Critically low 12.0-16.0 [facility] Comment on above: Performed By: #### C BC ####[facility] Lnzizrsqjb[address] [place] [address]Dr. Swathi Reis IG # 0.05 10e3/ul Critically high 0.00-0.03 [facility] Comment on above: Performed By: #### C BC ####[facility] Vuehjudbyc[address] [place] [address]Dr. Swathi Reis IG % 0.5 % Normal 0.0-0.5 [facility] Comment on above: Performed By: #### C BC ####[facility] Cakvsolman2460[address] [place], [place] [address]Dr. Swathi Reis LYMPH # 1.5 103/ul Normal 1.2-3.8 [facility] Comment on above: Performed By: #### C BC ####[facility] Cthztymbhr966[address] [place], [place] [address]Dr. Swathi Reis Lymphocytes/100 WBC (Bld) 14.0 % Critically low 20.5-60.0 [facility] Comment on above: Performed By: #### C BC ####[facility] Vqxanwcfpt296[address] [place], [place] [address]Dr. Swathi Reis MANUAL DIFF REQ NO Normal [facility] Comment on above: Performed By: #### C BC ####[facility] Wjityrtvhb646[address] [place], [place] [address]Dr. Swathi Reis MCH (RBC) [Entitic mass] 30.1 pg Normal 26.7-34.0 [facility] Comment on above: Performed By: #### C BC ####[facility] Clcacjcdup319[address] [place], [place] [address]Dr. Swathi Reis MCHC (RBC) [Mass/Vol] 32.4 g/dL Normal 29.9-35.2 [facility] Comment on above: Performed By: #### C BC ####[facility] Krorcabboa1114[address] [place], [place] [address]Dr. Swathi Reis MCV (RBC) [Entitic vol] 92.9 fL Normal 81.0-99.0 [facility] Comment on above: Performed By: #### C BC ####[facility] Epexpmqnhg385[address] [place], [place] [address]DrOtto Swathi Reis MONO # 1.2 103/ul Critically high 0.3-0.8 [facility] Comment on above: Performed By: #### C BC ####[facility] Sscxnynedq1170[address] [place], [place] [address]Dr. Swathi Chato Monocytes/100 WBC (Bld) 11.1 % Normal 1.7-12.0 [facility] Comment on above: Performed By: #### C BC ####[facility] Rzvrpfwgjo7067[address] [place], [place] [address]Dr. Swathi Reis NEUT # 7.5 103/ul Critically high 1.4-6.5 [facility] Comment on above: Performed By: #### C BC ####[facility] Bducxaennj1087[address] [place], [place] [address]Dr. Swathi Chato Neutrophils/100 WBC (Bld) 70.5 % Normal 43.0-75.0 [facility] Comment on above: Performed By: #### C BC ####[facility] Cakosruhnx912[address] [place], [place] [address]Dr. Inessatracy Chato Platelet mean volume (Bld) [Entitic vol] 10.7 fL Normal 9.5-13.5 [facility] Comment on above: Performed By: #### C BC ####[facility] Kifanwyzga4601[address] [place], [place] [address]Dr. Inessatracy Chato PLT 291 103/ul Normal 150-450 [facility] Comment on above: Performed By: #### C BC ####[facility] Ouvjdzgjzi544[address] [place], [place] [address]Dr. Swathi Reis RBC 3.22 106/ul Critically low 4.20-5.40 [facility] Comment on above: Performed By: #### C BC ####[facility] Rlpvwglrer845[address] [place], [place] [address]DrOtto Reis WBC 10.6 103/ul Normal 4.0-11.0 [facility] Comment on above: Performed By: #### C BC ####[facility] Rktymkirtm8865[address] [place], [place] [address]Dr. Swathi Reis POINT OF CARE GLUCOSEon 06-24 Glucose [Mass/Vol] 191 mg/dL Critically high 74-106 [facility] Comment on above: Performed By: #### P OCGLUC ####[facility] Icfndwygss515[address] [place], [place] [address]Dr. Swathi Reis PROF 14(COMP METB)on 022 Albumin [Mass/Vol] 2.4 g/dL Critically low 3.4-5.0 [facility] Comment on above: Performed By: #### B SAFETY DIRECTOR, CMP ####[facility] Yubunvymke1845[address] [place], [place] [address]Dr. Swathi Reis Albumin/Globulin [Mass ratio] 0.6 {ratio} Normal [facility] Comment on above: Performed By: #### B SAFETY DIRECTOR, CMP ####[facility] Tkyxyrgrah0217[address] [place], [place] [address]Dr. Swathi Reis ALP [Catalytic activity/Vol] 73 U/L Normal 46-116 [facility] Comment on above: Performed By: #### B SAFETY DIRECTOR, CMP ####[facility] Vdxgihoood4534[address] [place], [place] [address]Dr. Swathi Reis ALT [Catalytic activity/Vol] 11 U/L Critically low 14-59 [facility] Comment on above: Performed By: #### B SAFETY DIRECTOR, CMP ####[facility] Cglgaeowji402[address] [place], [place] [address]Dr. Swathi Reis Anion gap [Moles/Vol] 7.7 mmol/L Normal [facility] Comment on above: Performed By: #### B SAFETY DIRECTOR, CMP ####[facility] Fictkncobo810[address] [place], [place] [address]Dr. Swathi Reis AST [Catalytic activity/Vol] 15 U/L Normal 15-37 [facility] Comment on above: Performed By: #### B SAFETY DIRECTOR, CMP ####[facility] Defnrdpxru002[address] [place], [place] [address]Dr. Swathi Reis Bilirubin [Mass/Vol] 0.3 mg/dL Normal 0.2-1.0 [facility] Comment on above: Performed By: #### B SAFETY DIRECTOR, CMP ####[facility] Cabrvnbmdt3701[address] [place], [place] [address]Dr. Swathi Reis Calcium [Mass/Vol] 9.3 mg/dL Normal 8.5-10.1 [facility] Comment on above: Performed By: #### B SAFETY DIRECTOR, CMP ####[facility] Zljcfseszf259[address] [place], [place] [address]Dr. Swathi Reis Chloride [Moles/Vol] 104 mmol/L Normal 98-107 [facility] Comment on above: Performed By: #### B SAFETY DIRECTOR, CMP ####[facility] Hhdfhxhvto189[address] [place], [place] [address]Dr. Swathi Reis CO2 [Moles/Vol] 30.2 mmol/L Normal 21.0-32.0 [facility] Comment on above: Performed By: #### B SAFETY DIRECTOR, CMP ####[facility] Qojojnooxb1234[address] [place], [place] [address]Dr. Swathi Reis Creatinine [Mass/Vol] 1.69 mg/dL Critically high 0.55-1.02 [facility] Comment on above: Performed By: #### B SAFETY DIRECTOR, CMP ####[facility] Xuzamihhup3390[address] [place], [place] [address]Dr. Swathi Reis EGFR-AF MAURITANIAN 36 mL/min/1.73m2 Critically low >=60 [facility] Comment on above: Performed By: #### B SAFETY DIRECTOR, CMP ####[facility] Haoxptygpv098[address] [place], [place] [address]Dr. Swathi Reis EGFR-NON AF MAURITANIAN 29 mL/min/1.73m2 Critically low >=60 [facility] Comment on above: Performed By: #### B SAFETY DIRECTOR, CMP ####[facility] Fxordtfobl877[address] [place], [place] [address]Dr. Swathi Reis Globulin (S) [Mass/Vol] 4.0 g/dL Normal [facility] Comment on above: Performed By: #### B SAFETY DIRECTOR, CMP ####[facility] Wmlgoqmtfo750[address] [place] [address]Dr. Swathi Reis Glucose [Mass/Vol] 110 mg/dL Critically high 74-106 [facility] Comment on above: Performed By: #### B SAFETY DIRECTOR, CMP ####[facility] Jdgqlrmnrc1360[address] [place], [place] [address]Dr. Swathi Reis Potassium [Moles/Vol] 3.9 mmol/L Normal 3.5-5.1 [facility] Comment on above: Performed By: #### B SAFETY DIRECTOR, CMP ####[facility] Nnjybgvxrf2618[address] [place], [place] [address]Dr. Swathi Reis Protein [Mass/Vol] 6.4 g/dL Normal 6.4-8.2 [facility] Comment on above: Performed By: #### B SAFETY DIRECTOR, CMP ####[facility] Helirzodxd107[address] [place], [place] [address]Dr. Swathi Reis Sodium [Moles/Vol] 138 mmol/L Normal 136-145 [facility] Comment on above: Performed By: #### B SAFETY DIRECTOR, CMP ####[facility] Aaauriwczr30[address] [place], [place] [address]Dr. Swathi Reis Urea nitrogen [Mass/Vol] 21.0 mg/dL Critically high 7.0-18.0 [facility] Comment on above: Performed By: #### B SAFETY DIRECTOR, CMP ####[facility] Olekqyiofy[address] [place], [place] [address]Dr. Swathi Reis Urea nitrogen/Creatinine [Mass ratio] 12.4 mg/mg Normal [facility] Comment on above: Performed By: #### B SAFETY DIRECTOR, CMP ####[facility] Kjbfmvxwuz[address] [place], [place] [address]Dr. Swathi Reis BNPon 07-11-2022 Natriuretic peptide B (Bld) [Mass/Vol] 2516.0 pg/mL Critically high <=1,800.0 [facility] Comment on above: Performed By: #### B SAFETY DIRECTOR, CMP ####[facility] Bxbsatufvh433[address] [place], [place] [address]Dr. Swathi Reis C. DIFF PCRon 07-11-2022 C. DIFFICILE PCR Positive Critically abnormal NEGATIVE [facility] Comment on above: Performed By: #### C DIFPOC ####[facility] H[address]bcvnbtad[address] [place] [id number]. Swathi Reis CBC AUTO DIFFon 07-11-2022 BASO # 0.0 103/ul Normal 0.0-0.1 [facility] Comment on above: Performed By: #### C BC ####[facility] Djvcmkmuab9827 [place] [id number]. Swathi Reis Basophils/100 WBC (Bld) 0.4 % Normal 0.2-2.0 [facility] Comment on above: Performed By: #### C BC ####[facility] J[address]qczebmt[address] [place] [address]Dr. Inessatracy Reis EO # 0.2 103/ul Normal 0.0-0.7 [facility] Comment on above: Performed By: #### C BC ####[facility] Rnbolhfvbo13[address] [place] [address]Dr. Swathi Reis Eosinophils/100 WBC (Bld) 2.2 % Normal 0.9-7.0 [facility] Comment on above: Performed By: #### C BC ####[facility] Lsomfxhxrm5[address] [place] [address]Dr. Swathi Reis Erythrocyte distribution width (RBC) [Ratio] 13.4 % Normal 11.0-15.0 [facility] Comment on above: Performed By: #### C BC ####[facility] Ntvlkniwll232[address] [place] [id number]. Swathi Reis Hematocrit (Bld) [Volume fraction] 27.0 % Critically low 36.0-48.0 [facility] Comment on above: Performed By: #### C BC ####[facility] [address]yrjt[address] [place] [address]Dr. Swathi Reis Hemoglobin (Bld) [Mass/Vol] 8.5 g/dL Critically low 12.0-16.0 [facility] Comment on above: Performed By: #### C BC ####[facility] Tavmysvuye85[address] [place] [id number]. Swathi Reis IG # 0.07 10e3/ul Critically high 0.00-0.03 [facility] Comment on above: Performed By: #### C BC ####[facility] Iiesldkrgs4216 [place] [id number]. Swathi Reis IG % 0.6 % Critically high 0.0-0.5 [facility] Comment on above: Performed By: #### C BC ####[facility] Ofrqggilig[address] [place] [address]Dr. Swathi Reis LYMPH # 1.2 103/ul Normal 1.2-3.8 [facility] Comment on above: Performed By: #### C BC ####[facility] Eiaruwtmps[address] [place] [address]Dr. Swathi Reis Lymphocytes/100 WBC (Bld) 10.5 % Critically low 20.5-60.0 [facility] [facility] Comment on above: Performed By: #### C BC ####[facility] [address]ew[address] [place] [address]Dr. Swathi Reis MANUAL DIFF REQ NO Normal [facility] Comment on above: Performed By: #### C BC ####[facility] Kkuvxpssmo[address] [place] [address]Dr. Swathi Reis MCH (RBC) [Entitic mass] 29.6 pg Normal 26.7-34.0 [facility] Comment on above: Performed By: #### C BC ####[facility] Gvbdjuaunq037[address] [place], [place] [address]Dr. Swathi Reis MCHC (RBC) [Mass/Vol] 31.5 g/dL Normal 29.9-35.2 [facility] Comment on above: Performed By: #### C BC ####[facility] Fpclthwdri330[address] [place], [place] [address]Dr. Swathi Reis MCV (RBC) [Entitic vol] 94.1 fL Normal 81.0-99.0 [facility] Comment on above: Performed By: #### C BC ####[facility] Fkxklmndsa[address] [place] [id number]. Swathi Reis MONO # 1.1 103/ul Critically high 0.3-0.8 [facility] Comment on above: Performed By: #### C BC ####[facility] Npmuidrajh[address] [place] [id number]. Swathi Reis Monocytes/100 WBC (Bld) 9.9 % Normal 1.7-12.0 [facility] Comment on above: Performed By: #### C BC ####[facility] Tonodgcdgf[address] [place] [id number]. Swathi Reis NEUT # 8.4 103/ul Critically high 1.4-6.5 [facility] Comment on above: Performed By: #### C BC ####[facility] Wavjqafxef[address] [place] [address]Dr. Swathi Reis Neutrophils/100 WBC (Bld) 76.4 % Critically high 43.0-75.0 [facility] Comment on above: Performed By: #### C BC ####[facility] Q[address]julziggv[address] [place] [address]Dr. Swathi Reis Platelet mean volume (Bld) [Entitic vol] 10.6 fL Normal 9.5-13.5 [facility] Comment on above: Performed By: #### C BC ####[facility] Iekvxlmmxl088[address] [place], [place] [address]Dr. Swathi Reis PLT 248 103/ul Normal 150-450 [facility] Comment on above: Performed By: #### C BC ####[facility] Kdtsgqlifx[address] [place], [place] [id number]. Swathi Reis RBC 2.87 106/ul Critically low 4.20-5.40 [facility] Comment on above: Performed By: #### C BC ####[facility] Topeljgtiz65[address] [place], [place] [id number]. Swathi Reis WBC 11.0 103/ul Normal 4.0-11.0 [facility] Comment on above: Performed By: #### C BC ####[facility] Ylhzzyrobd299[address] [place], [place] [address]Dr. Inessatracy Reis GI PANEL (PCR)on 07-11-2022 Adenovirus F 40/41 Not detected Normal NOT DETECTED [facility] Comment on above: Performed By: #### G IPANEL ####[facility] Tnsimavksw524[address] [place], [place] [address]Dr. Swathi Reis Astrovirus Not detected Normal NOT DETECTED [facility] Comment on above: Performed By: #### G IPANEL ####[facility] Twnvxdvkqh2887[address] [place], [place] [address]Dr. Swathi Reis C. Diff toxin A/B Detected Critically abnormal NOT DETECTED [facility] Comment on above: Performed By: #### G IPANEL ####[facility] Avgkxphebb5000[address] [place], [place] [address]Dr. Swathi Reis Campylobacter Not detected Normal NOT DETECTED [facility] Comment on above: Performed By: #### G IPANEL ####[facility] Hdttwtnlpo909[address] [place], [place] [address]Dr. Swathi [facility] Cryptosporidium Not detected Normal NOT DETECTED [facility] Comment on above: Performed By: #### G IPANEL ####[facility] Qwmmrrvozu103996 [address] [place], [place] [address]Dr. Swathi Reis Cyclos. Cayetanensis Not detected Normal NOT DETECTED [facility] Comment on above: Performed By: #### G IPANEL ####[facility] Zmvmsiwjzs867196 [address] [place], [place] [address]Dr. Swathi [facility] E. Coli O157 Not Applicable Normal Not Applicable [facility] Comment on above: Performed By: #### G IPANEL ####[facility] Csagkcbtoy568[address] [place], [place] [address]Dr. [facility] E. histolytica Not detected Normal NOT DETECTED [facility] Comment on above: Performed By: #### G IPANEL ####[facility] Cfngykiolo479396 [address] [place], [place] [address]Dr. tracy Reis EAEC Not detected Normal NOT DETECTED [facility] Comment on above: Performed By: #### G IPANEL ####[facility] Fetxrijslx4[address] [place] [id number]. Swathi Reis EIEC Not detected Normal NOT DETECTED [facility] Comment on above: Performed By: #### G IPANEL ####[facility] Nwkwwpwhuk[address] [place] [id number]. Swathi Reis EPEC Not detected Normal NOT DETECTED [facility] Comment on above: Performed By: #### G IPANEL ####[facility] Qwooksrfiz6488[address] [place], [place] [address]Dr. Swathi Reis ETEC Not detected Normal NOT DETECTED [facility] Comment on above: Performed By: #### G IPANEL ####[facility] Ysdlmxgxoc139[address] [place], [place] [address]Dr. Swathi Reis G. Lamblia Not detected Normal NOT DETECTED [facility] Comment on above: Performed By: #### G IPANEL ####[facility] Hjrjscdhne9915[address] [place], [place] [address]Dr. Swathi Reis GIPBAN[facility]ARD[facility] CONTROLS PASSED Normal [facility] Comment on above: Performed By: #### G IPANEL ####[facility] Dcleujhnkq557396 [address] [place], [place] [address]Dr. Swathi [facility] RICHELLE HEADER GI PANEL BACTERIA Normal T [facility] Comment on above: Performed By: #### G IPANEL ####[facility] Chozeeqlex527[address] [place], [place] [id number]. Swathi Reis [facility] EC[facility] GI PANEL DIARRHEAGEN IC E.COLI / SHIGELLA Normal [facility] Comment on above: Performed By: #### G IPANEL ####[facility] Hdffiflmdr8945[address] [place], [place] [address]Dr. Inessatracy Reis GIPNLHD INFO SEE BELOW Normal [facility] Comment on above: Result Comment: EAEC - Enteroaggregative E. Coli EPEC- Enteropathogenic E. Coli ETEC- Enterotoxigenic E. Coli lt/st STEC- Shigella-like toxin-producing E. Coli stx1/stx2 EIEC- Shigella/Enteroinvasive E. Coli Performed By: #### G IPANEL ####[facility] Nituxmsmfo520396 [address] [place], [place] [address]Dr. Swathi Reis GIPNLHD PARASITES GI PANEL PARASITES Normal [facility] Comment on above: Performed By: #### G IPANEL ####[facility] Moxupticky663896 [address] [place], [place] [address]Dr. Inessatracy Chato GIPNLHD VIRUS GI PANEL VIRUSES Normal [facility] Comment on above: Performed By: #### G IPANEL ####[facility] Tgggtdbqpy2285[address] [place], [place] [address]Dr. Swathi Reis Norovirus GI/GII Not detected Normal NOT DETECTED [facility] Comment on above: Performed By: #### G IPANEL ####[facility] Tbucrllzcv673496 [address] [place], [place] [address]Dr. Swathi Reis P. Shigelloides Not detected Normal NOT DETECTED [facility] Comment on above: Performed By: #### G IPANEL ####[facility] Bmbxyglzxp229[address] [place], [place] [address]Dr. Swathi Reis Rotavirus A Not detected Normal NOT DETECTED [facility] Comment on above: Performed By: #### G IPANEL ####[facility] Hnknfzzqnq116396 [address] [place], [place] [address]Dr. Swathi Reis Salmonella Not detected Normal NOT DETECTED [facility] Comment on above: Performed By: #### G IPANEL ####[facility] Cwfnviruon274[address] [place], [place] [address]Dr. Swathi Reis Sapovirus Not detected Normal NOT DETECTED [facility] Comment on above: Performed By: #### G IPANEL ####[facility] Nggpdvsknv7932[address] [place], [place] [address]Dr. Swathi Reis STEC Detected Critically abnormal NOT DETECTED [facility] Comment on above: Performed By: #### G IPANEL ####[facility] Dtdjluuicw865[address] [place], [place] [address]Dr. Swathi Reis Vibrio Not detected Normal NOT DETECTED [facility] Comment on above: Performed By: #### G IPANEL ####[facility] Vlspkdczib000[address] [place], [place] [address]Dr. Swathi Reis Vibrio Cholera Not detected Normal NOT DETECTED [facility] Comment on above: Performed By: #### G IPANEL ####[facility] Somwbkwaka[address] [place] [address]Dr. Swathi Reis Y. Enterocolitica Not detected Normal NOT DETECTED [facility] Comment on above: Performed By: #### G IPANEL ####[facility] Hypzeotflm[address] [place] [address]Dr. Swathi Reis POINT OF CARE GLUCOSEon 06-23 Glucose [Mass/Vol] 120 mg/dL Critically high 74-106 [facility] Comment on above: Performed By: #### P OCGLUC ####[facility] Mgqipwdupo718[address] [place], [place] [address]Dr. Swathi Reis Glucose [Mass/Vol] 193 mg/dL Critically high 74-106 [facility] Comment on above: Performed By: #### P OCGLUC ####[facility] Qqowshwvvg296996 [address] [place], [place] [address]Dr. Swathi Reis PROF 14(COMP METB)on 022 Albumin [Mass/Vol] 2.4 g/dL Critically low 3.4-5.0 [facility] Comment on above: Performed By: #### B SAFETY DIRECTOR, CMP ####[facility] Nmqcsxegxz404996 [address] [place], [place] [address]Dr. Swathi Reis Albumin/Globulin [Mass ratio] 0.7 {ratio} Normal [facility] Comment on above: Performed By: #### B SAFETY DIRECTOR, CMP ####[facility] Rpebvkvjpn2438[address] [place], [place] [address]Dr. Swathi Reis ALP [Catalytic activity/Vol] 70 U/L Normal 46-116 [facility] Comment on above: Performed By: #### B SAFETY DIRECTOR, CMP ####[facility] Dwkpdlxron984[address] [place], [place] [address]Dr. Swathi Reis ALT [Catalytic activity/Vol] 12 U/L Critically low 14-59 [facility] Comment on above: Performed By: #### B SAFETY DIRECTOR, CMP ####[facility] Mkwfuxxvws038[address] [place], [place] [address]Dr. Swathi Reis Anion gap [Moles/Vol] 8.7 mmol/L Normal [facility] Comment on above: Performed By: #### B SAFETY DIRECTOR, CMP ####[facility] Mrmucvmlrp169[address] [place], [place] [address]Dr. Swathi Reis AST [Catalytic activity/Vol] 11 U/L Critically low 15-37 [facility] Comment on above: Performed By: #### B SAFETY DIRECTOR, CMP ####[facility] Rrulnkutan0715[address] [place], [place] [address]Dr. Inessatracy Reis Bilirubin [Mass/Vol] 0.3 mg/dL Normal 0.2-1.0 [facility] Comment on above: Performed By: #### B SAFETY DIRECTOR, CMP ####[facility] Ejsyrwboys906[address] [place], [place] [address]Dr. Inessatracy Reis Calcium [Mass/Vol] 9.1 mg/dL Normal 8.5-10.1 [facility] Comment on above: Performed By: #### B SAFETY DIRECTOR, CMP ####[facility] Ejckoggfyo088596 [address] [place], [place] [address]Dr. Swathi Reis Chloride [Moles/Vol] 107 mmol/L Normal 98-107 [facility] Comment on above: Performed By: #### B SAFETY DIRECTOR, CMP ####[facility] Rmbpxexbrx0480[address] [place], [place] [address]Dr. Inessatracy Reis CO2 [Moles/Vol] 27.6 mmol/L Normal 21.0-32.0 [facility] Comment on above: Performed By: #### B SAFETY DIRECTOR, CMP ####[facility] Tegbykpkrb81959[address] [place], [place] [address]Dr. Swathi Reis Creatinine [Mass/Vol] 1.72 mg/dL Critically high 0.55-1.02 [facility] Comment on above: Performed By: #### B SAFETY DIRECTOR, CMP ####[facility] Hwrrodtsxc6938[address] [place], [place] [address]Dr. Inessatracy Chato EGFR-AF MAURITANIAN 35 mL/min/1.73m2 Critically low >=60 [facility] Comment on above: Performed By: #### B SAFETY DIRECTOR, CMP ####[facility] Feavrkvxai1345[address] [place], [place] [address]Dr. Swathi Reis EGFR-NON AF MAURITANIAN 29 mL/min/1.73m2 Critically low >=60 [facility] Comment on above: Performed By: #### B SAFETY DIRECTOR, CMP ####[facility] Fahxnudsog[address] [place] [address]Dr. Swathi Reis Globulin (S) [Mass/Vol] 3.6 g/dL Normal [facility] Comment on above: Performed By: #### B SAFETY DIRECTOR, CMP ####[facility] Pertcbqybd6[address] [place] [address]Dr. Swathi Reis Glucose [Mass/Vol] 119 mg/dL Critically high 74-106 [facility] Comment on above: Performed By: #### B SAFETY DIRECTOR, CMP ####[facility] Qrhduplijo903196 [address] [place], [place] [address]Dr. Swathi Reis Potassium [Moles/Vol] 4.3 mmol/L Normal 3.5-5.1 [facility] Comment on above: Performed By: #### B SAFETY DIRECTOR, CMP ####[facility] Fqtkppjfik613[address] [place], [place] [address]Dr. Swathi Reis Protein [Mass/Vol] 6.0 g/dL Critically low 6.4-8.2 Th [facility] Comment on above: Performed By: #### B SAFETY DIRECTOR, CMP ####[facility] Mplkprnddv016[address] [place], [place] [address]Dr. Swathi Reis Sodium [Moles/Vol] 139 mmol/L Normal 136-145 [facility] Comment on above: Performed By: #### B SAFETY DIRECTOR, CMP ####[facility] Yonpuadaoh7590[address] [place], [place] [address]Dr. Swathi Reis Urea nitrogen [Mass/Vol] 23.0 mg/dL Critically high 7.0-18.0 [facility] Comment on above: Performed By: #### B SAFETY DIRECTOR, CMP ####[facility] Vltyjflgjn670[address] [place], [place] [address]Dr. Swathi Reis Urea nitrogen/Creatinine [Mass ratio] 13.4 mg/mg Normal [facility] Comment on above: Performed By: #### B SAFETY DIRECTOR, CMP ####[facility] Xpyagiwhqt[address] [place] [address]Dr. Swathi Chato BNPon 07-10-2022 Natriuretic peptide B (Bld) [Mass/Vol] 2243.0 pg/mL Critically high <=1,800.0 [facility] Comment on above: Performed By: #### B SAFETY DIRECTOR, CMP ####[facility] Vdosollpii287396 [address] [place], [place] [address]Dr. Swathi Chato CBC AUTO DIFFon 07-10-2022 BASO # 0.1 103/ul Normal 0.0-0.1 [facility] Comment on above: Performed By: #### C BC ####[facility] Kiwunwmwjb537[address] [place], [place] [address]Dr. Swathi Reis Basophils/100 WBC (Bld) 0.7 % Normal 0.2-2.0 [facility] Comment on above: Performed By: #### C BC ####[facility] Mqkmoxcuag974[address] [place], [place] [address]Dr. Swathi Reis EO # 0.2 103/ul Normal 0.0-0.7 [facility] Comment on above: Performed By: #### C BC ####[facility] Irjvdtttix1928[address] [place], [place] [address]Dr. Swathi Reis Eosinophils/100 WBC (Bld) 2.1 % Normal 0.9-7.0 [facility] Comment on above: Performed By: #### C BC ####[facility] Uvzlfhsrpy1522[address] [place], [place] [address]Dr. Swathi Reis Erythrocyte distribution width (RBC) [Ratio] 13.5 % Normal 11.0-15.0 [facility] Comment on above: Performed By: #### C BC ####[facility] Tghhfjtsgp024696 [address] [place], [place] [address]Dr. Swathi Reis Hematocrit (Bld) [Volume fraction] 36.6 % Normal 36.0-48.0 [facility] Comment on above: Performed By: #### C BC ####[facility] Xnlbzuwfmd3385[address] [place], [place] [address]Dr. Swathi Reis Hemoglobin (Bld) [Mass/Vol] 11.3 g/dL Critically low 12.0-16.0 [facility] Comment on above: Performed By: #### C BC ####[facility] O[address]wxmosie[address] [place] [address]DrOtto Reis IG # 0.03 10e3/ul Normal 0.00-0.03 [facility] Comment on above: Performed By: #### C BC ####[facility] Cjqzkdffbo8281 [place] [address]DrOtto Reis IG % 0.4 % Normal 0.0-0.5 [facility] Comment on above: Performed By: #### C BC ####[facility] Zfpvantcno6514[address] [place], [place] [address]DrOtto Reis LYMPH # 0.8 103/ul Critically low 1.2-3.8 [facility] Comment on above: Performed By: #### C BC ####[facility] Qkjdagpbaw329396 [address] [place], [place] [address]DrOtto Reis Lymphocytes/100 WBC (Bld) 10.3 % Critically low 20.5-60.0 [facility] Comment on above: Performed By: #### C BC ####[facility] Xshrahfcaw3550[address] [place], [place] [address]DrOtto Reis MANUAL DIFF REQ NO Normal [facility] Comment on above: Performed By: #### C BC ####[facility] Niwyvptwce095[address] [place] [address]DrOtto Reis MCH (RBC) [Entitic mass] 29.1 pg Normal 26.7-34.0 [facility] Comment on above: Performed By: #### C BC ####[facility] Gxvmxrnwyn6045[address] [place], [place] [address]DrOtto Reis MCHC (RBC) [Mass/Vol] 30.9 g/dL Normal 29.9-35.2 [facility] Comment on above: Performed By: #### C BC ####[facility] Aqczibtonf667[address] [place], [place] [address]DrOtto Reis MCV (RBC) [Entitic vol] 94.3 fL Normal 81.0-99.0 [facility] Comment on above: Performed By: #### C BC ####[facility] Mvmidxheje67[address] [place] [address]DrOtto Swathi Reis MONO # 0.7 103/ul Normal 0.3-0.8 [facility] Comment on above: Performed By: #### C BC ####[facility] Gpolfdjbaa2538 [place] [address]DrOtto Inessatracy Reis Monocytes/100 WBC (Bld) 10.2 % Normal 1.7-12.0 [facility] Comment on above: Performed By: #### C BC ####[facility] Rofaawwptv957[address] [place], [place] [address]DrOtto Swathi Reis NEUT # 5.5 103/ul Normal 1.4-6.5 [facility] Comment on above: Performed By: #### C BC ####[facility] Wnxmpiauuf8827[address] [place], [place] [address]DrOtto Inessatracy Reis Neutrophils/100 WBC (Bld) 76.3 % Critically high 43.0-75.0 [facility] Comment on above: Performed By: #### C BC ####[facility] Lmmoaffssl52[address] [place], [place] [address]DrOtto Swathi Chato Platelet mean volume (Bld) [Entitic vol] 10.6 fL Normal 9.5-13.5 [facility] Comment on above: Performed By: #### C BC ####[facility] Mrtlbewvrv0899[address] [place], [place] [address]Dr. Swathi Chato PLT 212 103/ul Normal 150-450 [facility] Comment on above: Performed By: #### C BC ####[facility] Kckduzdfps328[address] [place], [place] [address]DrOtto Reis RBC 3.88 106/ul Critically low 4.20-5.40 [facility] Comment on above: Performed By: #### C BC ####[facility] Eubmozebgf215[address] [place], [place] [address]DrOtto Reis WBC 7.3 103/ul Normal 4.0-11.0 [facility] Comment on above: Performed By: #### C BC ####[facility] Talarcxlwk[address] [place] [address]Dr. Swathi Reis POINT OF CARE GLUCOSEon 06-23 Glucose [Mass/Vol] 171 mg/dL Critically high 74-106 [facility] Comment on above: Performed By: #### P OCGLUC ####[facility] Aehtajazoq[address] [place] [address]Dr. Swathi Reis Glucose [Mass/Vol] 162 mg/dL Critically high 74-106 [facility] Comment on above: Performed By: #### P OCGLUC ####[facility] Dcigoklzkj680596 [address] [place], [place] [address]Dr. Swathi Reis Glucose [Mass/Vol] 176 mg/dL Critically high 74-106 [facility] Comment on above: Performed By: #### P OCGLUC ####[facility] Mfiemoncyd045996 [address] [place], [place] [address]Dr. Swathi Reis Glucose [Mass/Vol] 140 mg/dL Critically high -106 [facility] Comment on above: Performed By: #### P OCGLUC ####[facility] Bavblaogbz4535[address] [place], [place] [address]Dr. Swathi Reis Glucose [Mass/Vol] 37 mg/dL Critically low 74-106 [facility] Comment on above: Result Comment: Will Repeat Test Performed By: #### P OCGLUC ####[facility] Dcotptrqtg217[address] [place], [place] [address]Dr. Swathi Chato PROF 14(COMP METB)on 07-10-2 022 Albumin [Mass/Vol] 2.5 g/dL Critically low 3.4-5.0 Th [facility] Comment on above: Performed By: #### B SAFETY DIRECTOR, CMP ####[facility] T[address]gsggqmdw340[address] [place] [address]Dr. Swathi Reis Albumin/Globulin [Mass ratio] 0.7 {ratio} Normal [facility] Comment on above: Performed By: #### B SAFETY DIRECTOR, CMP ####[facility] Pcrdrjskuq64[address] [place] [address]Dr. Swathi Reis ALP [Catalytic activity/Vol] 71 U/L Normal 46-116 [facility] Comment on above: Performed By: #### B SAFETY DIRECTOR, CMP ####[facility] Rpjdfluobz27[address] [place] [address]Dr. Swathi Reis ALT [Catalytic activity/Vol] 12 U/L Critically low 14-59 [facility] Comment on above: Performed By: #### B SAFETY DIRECTOR, CMP ####[facility] Ftxvhfbhdd1218[address] [place], [place] [address]Dr. Swathi Reis Anion gap [Moles/Vol] 10.1 mmol/L Normal [facility] Comment on above: Performed By: #### B SAFETY DIRECTOR, CMP ####[facility] Gvtaowxcqp022[address] [place], [place] [address]Dr. Swathi Reis AST [Catalytic activity/Vol] 11 U/L Critically low 15-37 [facility] Comment on above: Performed By: #### B SAFETY DIRECTOR, CMP ####[facility] Yttmxadpei324[address] [place], [place] [address]Dr. Swathi Reis Bilirubin [Mass/Vol] 0.4 mg/dL Normal 0.2-1.0 [facility] Comment on above: Performed By: #### B SAFETY DIRECTOR, CMP ####[facility] Kmtbufpzjh322[address] [place], [place] [address]Dr. Swathi Reis Calcium [Mass/Vol] 9.0 mg/dL Normal 8.5-10.1 [facility] Comment on above: Performed By: #### B SAFETY DIRECTOR, CMP ####[facility] Sprpbfveut1288[address] [place], [place] [address]Dr. Swathi Reis Chloride [Moles/Vol] 107 mmol/L Normal 98-107 [facility] Comment on above: Performed By: #### B SAFETY DIRECTOR, CMP ####[facility] Wdkuijuvlo009[address] [place], [place] [address]Dr. Inessatracy Reis CO2 [Moles/Vol] 28.9 mmol/L Normal 21.0-32.0 [facility] Comment on above: Performed By: #### B SAFETY DIRECTOR, CMP ####[facility] Bcgfkljkeu[address] [place] [id number]. Swathi Reis Creatinine [Mass/Vol] 2.01 mg/dL Critically high 0.55-1.02 [facility] Comment on above: Performed By: #### B SAFETY DIRECTOR, CMP ####[facility] Lmmkjtflku8023[address] [place], [place] [address]Dr. Swathi Reis EGFR-AF MAURITANIAN 29 mL/min/1.73m2 Critically low >=60 [facility] Comment on above: Performed By: #### B SAFETY DIRECTOR, CMP ####[facility] Rkperrpvor345[address] [place], [place] [address]Dr. Swathi Reis EGFR-NON AF MAURITANIAN 24 mL/min/1.73m2 Critically low >=60 [facility] Comment on above: Performed By: #### B SAFETY DIRECTOR, CMP ####[facility] Gcmrodupxe13119[address] [place], [place] [address]Dr. Swathi Reis Globulin (S) [Mass/Vol] 3.6 g/dL Normal [facility] Comment on above: Performed By: #### B SAFETY DIRECTOR, CMP ####[facility] Jjeauoxwzi72[address] [place], [place] [address]Dr. Swathi Reis Glucose [Mass/Vol] 123 mg/dL Critically high 74-106 [facility] Comment on above: Performed By: #### B SAFETY DIRECTOR, CMP ####[facility] Pdyevvtbwd530[address] [place], [place] [address]Dr. Inessatracy Reis Potassium [Moles/Vol] 4.0 mmol/L Normal 3.5-5.1 [facility] Comment on above: Performed By: #### B SAFETY DIRECTOR, CMP ####[facility] Okrufolgfn377[address] [place], [place] [address]Dr. Inessatracy Reis Protein [Mass/Vol] 6.1 g/dL Critically low 6.4-8.2 Th [facility] Comment on above: Performed By: #### B SAFETY DIRECTOR, CMP ####[facility] Pehmwpxokp635[address] [place], [place] [address]Dr. Inessatracy Reis Sodium [Moles/Vol] 142 mmol/L Normal 136-145 [facility] Comment on above: Performed By: #### B SAFETY DIRECTOR, CMP ####[facility] Ahmljqipjp284[address] [place], [place] [address]Dr. Swathi Reis Urea nitrogen [Mass/Vol] 27.0 mg/dL Critically high 7.0-18.0 [facility] Comment on above: Performed By: #### B SAFETY DIRECTOR, CMP ####[facility] Xlhryalstk047[address] [place], [place] [address]Dr. Swathi Reis Urea nitrogen/Creatinine [Mass ratio] 13.4 mg/mg Normal [facility] Comment on above: Performed By: #### B SAFETY DIRECTOR, CMP ####[facility] Yexetvpxal840[address] [place], [place] [address]Dr. Swathi Reis BNPon 07-09-2022 Natriuretic peptide B (Bld) [Mass/Vol] 5933.0 pg/mL Critically high <=1,800.0 [facility] Comment on above: Performed By: #### B SAFETY DIRECTOR, CMP ####[facility] Xhhhybgugv11[address] [place], [place] [address]Dr. Swathi Reis CBC AUTO DIFFon 07-09-2022 BASO # 0.1 103/ul Normal 0.0-0.1 [facility] Comment on above: Performed By: #### C BC ####[facility] Nvkblbrshu22[address] [place], [place] [address]Dr. Swathi Chato Basophils/100 WBC (Bld) 0.5 % Normal 0.2-2.0 [facility] Comment on above: Performed By: #### C BC ####[facility] Lcimlczplt836[address] [place], [place] [address]Dr. Swathi Reis EO # 0.3 103/ul Normal 0.0-0.7 [facility] Comment on above: Performed By: #### C BC ####[facility] Hojqsbmdcf904[address] [place], [place] [address]Dr. Swathi Chato Eosinophils/100 WBC (Bld) 2.9 % Normal 0.9-7.0 [facility] Comment on above: Performed By: #### C BC ####[facility] Efqarwbzyh313[address] [place], [place] [address]Dr. Swathi Chato Erythrocyte distribution width (RBC) [Ratio] 13.4 % Normal 11.0-15.0 [facility] Comment on above: Performed By: #### C BC ####[facility] [address]sm[address] [place] [address]Dr. Swathi Chato Hematocrit (Bld) [Volume fraction] 28.8 % Critically low 36.0-48.0 [facility] Comment on above: Performed By: #### C BC ####[facility] O[address]wxllwtx[address] [place] [address]Dr. Swathi Reis Hemoglobin (Bld) [Mass/Vol] 9.2 g/dL Critically low 12.0-16.0 [facility] Comment on above: Performed By: #### C BC ####[facility] Syutbhxloi[address] [place] [address]Dr. Swathi Reis IG # 0.04 10e3/ul Critically high 0.00-0.03 [facility] Comment on above: Performed By: #### C BC ####[facility] Ojsoqkurbn058[address] [place], [place] [address]Dr. Swathi Reis IG % 0.4 % Normal 0.0-0.5 [facility] Comment on above: Performed By: #### C BC ####[facility] Qfjyxsfwkb6967[address] [place], [place] [address]Dr. Swathi Reis LYMPH # 1.2 103/ul Normal 1.2-3.8 [facility] Comment on above: Performed By: #### C BC ####[facility] Obtwlyldrg047[address] [place], [place] [address]Dr. Swathi Reis Lymphocytes/100 WBC (Bld) 10.9 % Critically low 20.5-60.0 [facility] Comment on above: Performed By: #### C BC ####[facility] Pnfhszmjbg2544[address] [place], [place] [address]Dr. Swathi Reis MANUAL DIFF REQ NO Normal [facility] Comment on above: Performed By: #### C BC ####[facility] Dojtivewap0467[address] [place], [place] [address]Dr. Swathi Reis MCH (RBC) [Entitic mass] 30.0 pg Normal 26.7-34.0 [facility] Comment on above: Performed By: #### C BC ####[facility] Sktwpykrgh[address] [place] [address]Dr. Swathi Reis MCHC (RBC) [Mass/Vol] 31.9 g/dL Normal 29.9-35.2 [facility] Comment on above: Performed By: #### C BC ####[facility] Tyjmovyhdy[address] [place] [address]Dr. Swathi Reis MCV (RBC) [Entitic vol] 93.8 fL Normal 81.0-99.0 [facility] Comment on above: Performed By: #### C BC ####[facility] Pzydyhmqea44[address] [place] [address]Dr. Swathi Reis MONO # 1.0 103/ul Critically high 0.3-0.8 [facility] Comment on above: Performed By: #### C BC ####[facility] Shwdxiptmz319[address] [place], [place] [address]Dr. Swathi Chato Monocytes/100 WBC (Bld) 9.6 % Normal 1.7-12.0 [facility] Comment on above: Performed By: #### C BC ####[facility] Uedtfexsho234[address] [place], [place] [address]Dr. Swathi Reis NEUT # 8.0 103/ul Critically high 1.4-6.5 [facility] Comment on above: Performed By: #### C BC ####[facility] Ypfejsudxs99039[address] [place], [place] [address]Dr. Swathi Chato Neutrophils/100 WBC (Bld) 75.7 % Critically high 43.0-75.0 [facility] Comment on above: Performed By: #### C BC ####[facility] Flmfmvopzf5910[address] [place], [place] [address]Dr. Swathi Reis Platelet mean volume (Bld) [Entitic vol] 10.6 fL Normal 9.5-13.5 [facility] Comment on above: Performed By: #### C BC ####[facility] Vunbyelxnb[address] [place] [id number]. Swathi Reis PLT 307 103/ul Normal 150-450 [facility] Comment on above: Performed By: #### C BC ####[facility] Zibfhcjatx0377 [place] [id number]. Swathi Reis RBC 3.07 106/ul Critically low 4.20-5.40 [facility] Comment on above: Performed By: #### C BC ####[facility] Xzfmljnjeg5447 [place] [id number]. Swathi Reis WBC 10.6 103/ul Normal 4.0-11.0 [facility] Comment on above: Performed By: #### C BC ####[facility] Ushbppyoem[address] [place] [address]Dr. Swathi Chato POINT OF CARE GLUCOSEon 06-23 Glucose [Mass/Vol] 168 mg/dL Critically high 74-106 [facility] Comment on above: Performed By: #### P OCGLUC ####[facility] Qrbjyykqfl22[address] [place] [address]Dr. Swathi Reis Glucose [Mass/Vol] 136 mg/dL Critically high 74-106 [facility] Comment on above: Performed By: #### P OCGLUC ####[facility] Xnwaeovxzn0796 [place] [id number]. Swathi Reis Glucose [Mass/Vol] 203 mg/dL Critically high 74-106 [facility] Comment on above: Performed By: #### P OCGLUC ####[facility] Mrxpxclzyj17[address] [place] [address]Dr. Inessatracy Reis PROF 14(COMP METB)on 022 Albumin [Mass/Vol] 2.6 g/dL Critically low 3.4-5.0 [facility] Comment on above: Performed By: #### B SAFETY DIRECTOR, CMP ####[facility] Klejjfbkwx299[address] [place] [id number]. Swathi Reis Albumin/Globulin [Mass ratio] 0.7 {ratio} Normal [facility] Comment on above: Performed By: #### B SAFETY DIRECTOR, CMP ####[facility] Bcvureafgv2585[address] [place], [place] [address]Dr. Swathi Reis ALP [Catalytic activity/Vol] 73 U/L Normal 46-116 [facility] Comment on above: Performed By: #### B SAFETY DIRECTOR, CMP ####[facility] Tiywdpybko8590[address] [place], [place] [address]Dr. Swathi Reis ALT [Catalytic activity/Vol] 12 U/L Critically low 14-59 [facility] Comment on above: Performed By: #### B SAFETY DIRECTOR, CMP ####[facility] Kwvcwwujix3933[address] [place], [place] [address]Dr. Swathi Reis Anion gap [Moles/Vol] 12.4 mmol/L Normal [facility] Comment on above: Performed By: #### B SAFETY DIRECTOR, CMP ####[facility] Bnhlpyphnr9810[address] [place], [place] [address]Dr. Swathi Reis AST [Catalytic activity/Vol] 10 U/L Critically low 15-37 [facility] Comment on above: Performed By: #### B SAFETY DIRECTOR, CMP ####[facility] Moyjybjcsm424[address] [place], [place] [address]Dr. Inessatracy Reis Bilirubin [Mass/Vol] 0.5 mg/dL Normal 0.2-1.0 [facility] Comment on above: Performed By: #### B SAFETY DIRECTOR, CMP ####[facility] Wtjxsjggob942[address] [place], [place] [address]Dr. Inessatracy Reis Calcium [Mass/Vol] 8.7 mg/dL Normal 8.5-10.1 [facility] Comment on above: Performed By: #### B SAFETY DIRECTOR, CMP ####[facility] Nmmtywxlsn416[address] [place], [place] [address]Dr. Swathi Reis Chloride [Moles/Vol] 105 mmol/L Normal 98-107 [facility] Comment on above: Performed By: #### B SAFETY DIRECTOR, CMP ####[facility] Gthjoaqkaf570[address] [place], [place] [address]Dr. Swathi Reis CO2 [Moles/Vol] 27.3 mmol/L Normal 21.0-32.0 [facility] Comment on above: Performed By: #### B SAFETY DIRECTOR, CMP ####[facility] Kftcalepig[address] [place] [address]Dr. Swathi Reis Creatinine [Mass/Vol] 2.02 mg/dL Critically high 0.55-1.02 [facility] Comment on above: Performed By: #### B SAFETY DIRECTOR, CMP ####[facility] Toqhcukujb310[address] [place], [place] [address]Dr. Swathi Reis EGFR-AF MAURITANIAN 29 mL/min/1.73m2 Critically low >=60 [facility] Comment on above: Performed By: #### B SAFETY DIRECTOR, CMP ####[facility] Poyxiuevpx0085[address] [place], [place] [address]Dr. Swathi Chato EGFR-NON AF MAURITANIAN 24 mL/min/1.73m2 Critically low >=60 [facility] Comment on above: Performed By: #### B SAFETY DIRECTOR, CMP ####[facility] Xfrgrfyedn086[address] [place], [place] [address]Dr. Swathi Chato Globulin (S) [Mass/Vol] 3.6 g/dL Normal [facility] Comment on above: Performed By: #### B SAFETY DIRECTOR, CMP ####[facility] Dpnvvdzrsl9722[address] [place], [place] [address]Dr. Swathi Reis Glucose [Mass/Vol] 134 mg/dL Critically high 74-106 [facility] Comment on above: Performed By: #### B SAFETY DIRECTOR, CMP ####[facility] Kdjgispoew325[address] [place], [place] [address]Dr. Swathi Reis Potassium [Moles/Vol] 3.7 mmol/L Normal 3.5-5.1 [facility] Comment on above: Performed By: #### B SAFETY DIRECTOR, CMP ####[facility] Ejybvbucbk956[address] [place], [place] [address]Dr. Swathi Chato Protein [Mass/Vol] 6.2 g/dL Critically low 6.4-8.2 Th [facility] Comment on above: Performed By: #### B SAFETY DIRECTOR, CMP ####[facility] Eiycwneitz080[address] [place], [place] [address]Dr. Swathi Reis Sodium [Moles/Vol] 141 mmol/L Normal 136-145 [facility] Comment on above: Performed By: #### B SAFETY DIRECTOR, CMP ####[facility] Ngvnkznstj416[address] [place], [place] [address]Dr. Swathi Chato Urea nitrogen [Mass/Vol] 29.0 mg/dL Critically high 7.0-18.0 [facility] Comment on above: Performed By: #### B SAFETY DIRECTOR, CMP ####[facility] Kmimpdyzjz26[address] [place], [place] [address]Dr. Swathi Reis Urea nitrogen/Creatinine [Mass ratio] 14.4 mg/mg Normal [facility] Comment on above: Performed By: #### B SAFETY DIRECTOR, CMP ####[facility] Cssjkqcjza155[address] [place], [place] [address]Dr. Swathi Reis XR CHEST 2 Von 07-09-2022 XR CHEST 2 V Normal [facility] BNPon 07-08-2022 Natriuretic peptide B (Bld) [Mass/Vol] 6044.0 pg/mL Critically high <=1,800.0 [facility] Comment on above: Performed By: #### B SAFETY DIRECTOR, CMP ####[facility] Zynarozumw07[address] [place], [place] [address]Dr. Swathi Reis CBC AUTO DIFFon 07-08-2022 BASO # 0.1 103/ul Normal 0.0-0.1 [facility] Comment on above: Performed By: #### C BC ####[facility] Ygpfegtwez717[address] [place], [place] [address]Dr. Swathi Reis Basophils/100 WBC (Bld) 0.7 % Normal 0.2-2.0 [facility] Comment on above: Performed By: #### C BC ####[facility] Xgachdifim246[address] [place], [place] [address]Dr. Swathi Reis EO # 0.3 103/ul Normal 0.0-0.7 [facility] Comment on above: Performed By: #### C BC ####[facility] Qznfgzeort317396 [address] [place], [place] [address]Dr. Swathi Reis Eosinophils/100 WBC (Bld) 2.9 % Normal 0.9-7.0 [facility] Comment on above: Performed By: #### C BC ####[facility] Wktvcucpll6[address] [place] [address]Dr. Swathi Reis Erythrocyte distribution width (RBC) [Ratio] 13.5 % Normal 11.0-15.0 [facility] Comment on above: Performed By: #### C BC ####[facility] F[address]kxfisbv[address] [place] [address]Dr. Swathi Reis Hematocrit (Bld) [Volume fraction] 29.9 % Critically low 36.0-48.0 [facility] Comment on above: Performed By: #### C BC ####[facility] Lucmlpdxof6110[address] [place], [place] [address]Dr. Swathi Chato Hemoglobin (Bld) [Mass/Vol] 9.5 g/dL Critically low 12.0-16.0 [facility] Comment on above: Performed By: #### C BC ####[facility] Wftpuagdjl7938[address] [place], [place] [address]Dr. Swathi Chato IG # 0.03 10e3/ul Normal 0.00-0.03 [facility] Comment on above: Performed By: #### C BC ####[facility] Bsdqztncpa480[address] [place], [place] [address]Dr. Inessatracy Reis IG % 0.3 % Normal 0.0-0.5 [facility] Comment on above: Performed By: #### C BC ####[facility] Uuydcidvef537[address] [place], [place] [address]Dr. Swathi Reis LYMPH # 0.9 103/ul Critically low 1.2-3.8 [facility] Comment on above: Performed By: #### C BC ####[facility] Bodhiyclvi626[address] [place], [place] [address]Dr. Swathi Reis Lymphocytes/100 WBC (Bld) 8.4 % Critically low 20.5-60.0 [facility] Comment on above: Performed By: #### C BC ####[facility] Pgvsipespd750[address] [place], [place] [address]Dr. Swathi Reis MANUAL DIFF REQ NO Normal [facility] Comment on above: Performed By: #### C BC ####[facility] Fiiuoagqho5[address] [place] [address]DrOtto Reis MCH (RBC) [Entitic mass] 30.1 pg Normal 26.7-34.0 [facility] Comment on above: Performed By: #### C BC ####[facility] Wctycbuyzp6[address] [place] [address]Dr. Swathi Reis MCHC (RBC) [Mass/Vol] 31.8 g/dL Normal 29.9-35.2 [facility] Comment on above: Performed By: #### C BC ####[facility] Kzkyvgaowk4359 [place] [address]DrOtto Reis MCV (RBC) [Entitic vol] 94.6 fL Normal 81.0-99.0 [facility] Comment on above: Performed By: #### C BC ####[facility] Zrinszsslu8427[address] [place], [place] [address]DrOtto Reis MONO # 1.0 103/ul Critically high 0.3-0.8 [facility] Comment on above: Performed By: #### C BC ####[facility] Wkvyomwhlh22[address] [place], [place] [address]DrOtto Reis Monocytes/100 WBC (Bld) 9.5 % Normal 1.7-12.0 [facility] Comment on above: Performed By: #### C BC ####[facility] Pujbfqkngj6427[address] [place], [place] [address]DrOtto Reis NEUT # 8.3 103/ul Critically high 1.4-6.5 [facility] Comment on above: Performed By: #### C BC ####[facility] Kciqtzlodk28[address] [place], [place] [address]DrOtto Reis Neutrophils/100 WBC (Bld) 78.2 % Critically high 43.0-75.0 [facility] Comment on above: Performed By: #### C BC ####[facility] Zogdudkftr259[address] [place], [place] [address]DrOtto Reis Platelet mean volume (Bld) [Entitic vol] 10.7 fL Normal 9.5-13.5 [facility] Comment on above: Performed By: #### C BC ####[facility] Ftxpjaufwp14[address] [place] [address]Dr. Swathi Reis PLT 273 103/ul Normal 150-450 [facility] Comment on above: Performed By: #### C BC ####[facility] Gpmgxpphkm68[address] [place] [address]Dr. Swathi Reis RBC 3.16 106/ul Critically low 4.20-5.40 [facility] Comment on above: Performed By: #### C BC ####[facility] Whflffpumf5[address] [place] [address]Dr. Swathi Reis WBC 10.6 103/ul Normal 4.0-11.0 [facility] Comment on above: Performed By: #### C BC ####[facility] Jxjsokizqc16[address] [place] [address]Dr. Inessatracy Chato POINT OF CARE GLUCOSEon 06-23 Glucose [Mass/Vol] 243 mg/dL Critically high 74-106 [facility] Comment on above: Performed By: #### P OCGLUC ####[facility] Yvynfnsdhu5[address] [place] [address]Dr. Swathi Reis Glucose [Mass/Vol] 161 mg/dL Critically high 74-106 [facility] Comment on above: Performed By: #### P OCGLUC ####[facility] Cmktjovpun2437 [place] [address]Dr. Swathi Reis Glucose [Mass/Vol] 186 mg/dL Critically high 74-106 [facility] Comment on above: Performed By: #### P OCGLUC ####[facility] Lqqovbgqxf0399[address] [place], [place] [address]Dr. Swathi Reis Glucose [Mass/Vol] 168 mg/dL Critically high 74-106 [facility] Comment on above: Performed By: #### P OCGLUC ####[facility] Zochnzepus6522[address] [place], [place] [address]Dr. Swathi Reis PROF 14(COMP METB)on 022 Albumin [Mass/Vol] 2.5 g/dL Critically low 3.4-5.0 Th [facility] Comment on above: Performed By: #### B SAFETY DIRECTOR, CMP ####[facility] Auowtfmnkz[address] [place] [address]Dr. Inessatracy Chato Albumin/Globulin [Mass ratio] 0.7 {ratio} Normal [facility] Comment on above: Performed By: #### B SAFETY DIRECTOR, CMP ####[facility] Qmznlqrbpf8473 [place] [address]Dr. Swathi Reis ALP [Catalytic activity/Vol] 77 U/L Normal 46-116 [facility] Comment on above: Performed By: #### B SAFETY DIRECTOR, CMP ####[facility] Lhjevydiey285[address] [place], [place] [address]Dr. Swathi Reis ALT [Catalytic activity/Vol] 16 U/L Normal 14-59 [facility] Comment on above: Performed By: #### B SAFETY DIRECTOR, CMP ####[facility] Ibcohtpose2600[address] [place], [place] [address]Dr. Swathi Reis Anion gap [Moles/Vol] 11.9 mmol/L Normal [facility] Comment on above: Performed By: #### B SAFETY DIRECTOR, CMP ####[facility] Eugtsncrre569[address] [place], [place] [address]Dr. Swathi Reis AST [Catalytic activity/Vol] 13 U/L Critically low 15-37 [facility] Comment on above: Performed By: #### B SAFETY DIRECTOR, CMP ####[facility] Tgqbhywgot397[address] [place], [place] [address]Dr. Swathi Reis Bilirubin [Mass/Vol] 0.6 mg/dL Normal 0.2-1.0 [facility] Comment on above: Performed By: #### B SAFETY DIRECTOR, CMP ####[facility] Brjhfohokp813[address] [place], [place] [address]Dr. Swathi Reis Calcium [Mass/Vol] 8.7 mg/dL Normal 8.5-10.1 [facility] Comment on above: Performed By: #### B SAFETY DIRECTOR, CMP ####[facility] Jeagostzmn5576 [place] [address]Dr. Swathi Reis Chloride [Moles/Vol] 105 mmol/L Normal 98-107 [facility] Comment on above: Performed By: #### B SAFETY DIRECTOR, CMP ####[facility] Wiojbqcyig6450[address] [place], [place] [address]Dr. Swathi Reis CO2 [Moles/Vol] 26.6 mmol/L Normal 21.0-32.0 [facility] Comment on above: Performed By: #### B SAFETY DIRECTOR, CMP ####[facility] Iklngzccni696[address] [place], [place] [address]Dr. Swathi Reis Creatinine [Mass/Vol] 1.54 mg/dL Critically high 0.55-1.02 [facility] Comment on above: Performed By: #### B SAFETY DIRECTOR, CMP ####[facility] Uovuyalpex2725[address] [place], [place] [address]Dr. Swathi Reis EGFR-AF MAURITANIAN 40 mL/min/1.73m2 Critically low >=60 [facility] Comment on above: Performed By: #### B SAFETY DIRECTOR, CMP ####[facility] Fhioryxypt3777[address] [place], [place] [address]Dr. Swathi Reis EGFR-NON AF MAURITANIAN 33 mL/min/1.73m2 Critically low >=60 [facility] Comment on above: Performed By: #### B SAFETY DIRECTOR, CMP ####[facility] Osyljktnkz2964[address] [place], [place] [address]Dr. Swathi Reis Globulin (S) [Mass/Vol] 3.8 g/dL Normal [facility] Comment on above: Performed By: #### B SAFETY DIRECTOR, CMP ####[facility] Pjfaeteipi5848[address] [place], [place] [address]Dr. Swathi Reis Glucose [Mass/Vol] 153 mg/dL Critically high 74-106 [facility] Comment on above: Performed By: #### B SAFETY DIRECTOR, CMP ####[facility] Qmrfdcqfvw456[address] [place], [place] [address]Dr. Swathi Reis Potassium [Moles/Vol] 3.5 mmol/L Normal 3.5-5.1 [facility] Comment on above: Performed By: #### B SAFETY DIRECTOR, CMP ####[facility] Jftpauxqdn667[address] [place], [place] [address]Dr. Swathi Reis Protein [Mass/Vol] 6.3 g/dL Critically low 6.4-8.2 [facility] Comment on above: Performed By: #### B SAFETY DIRECTOR, CMP ####[facility] Mjnzvcbzjx1536[address] [place], [place] [address]Dr. Swathi Reis Sodium [Moles/Vol] 140 mmol/L Normal 136-145 [facility] Comment on above: Performed By: #### B SAFETY DIRECTOR, CMP ####[facility] Eshngqqmig7977[address] [place], [place] [address]Dr. Inessatracy Chato Urea nitrogen [Mass/Vol] 25.0 mg/dL Critically high 7.0-18.0 [facility] Comment on above: Performed By: #### B SAFETY DIRECTOR, CMP ####[facility] Oujbsewscn367[address] [place], [place] [address]Dr. Swathi Reis Urea nitrogen/Creatinine [Mass ratio] 16.2 mg/mg Normal [facility] Comment on above: Performed By: #### B SAFETY DIRECTOR, CMP ####[facility] Cvjgepdoqn018[address] [place], [place] [address]Dr. Swathi Chato BNPon 07-07-2022 Natriuretic peptide B (Bld) [Mass/Vol] 6413.0 pg/mL Critically high <=1,800.0 [facility] Comment on above: Performed By: #### B SAFETY DIRECTOR, CMP ####[facility] Gqerdvokex5364[address] [place], [place] [address]Dr. Swathi Chato CBC AUTO DIFFon 07-07-2022 BASO # 0.1 103/ul Normal 0.0-0.1 [facility] Comment on above: Performed By: #### C BC ####[facility] Yqhxjlweew47[address] [place], [place] [address]Dr. Inessatracy Chato Basophils/100 WBC (Bld) 0.4 % Normal 0.2-2.0 [facility] Comment on above: Performed By: #### C BC ####[facility] Gypclkltxw976[address] [place], [place] [address]Dr. Swathi Reis EO # 0.3 103/ul Normal 0.0-0.7 [facility] Comment on above: Performed By: #### C BC ####[facility] Bxfidsxbot32[address] [place] [address]Dr. Swathi Reis Eosinophils/100 WBC (Bld) 2.6 % Normal 0.9-7.0 [facility] Comment on above: Performed By: #### C BC ####[facility] [address]ddjyseeo6[address] [place] [address]Dr. Swathi Reis Erythrocyte distribution width (RBC) [Ratio] 13.7 % Normal 11.0-15.0 [facility] Comment on above: Performed By: #### C BC ####[facility] Pewmowdtwk250[address] [place], [place] [address]Dr. Swathi Reis Hematocrit (Bld) [Volume fraction] 28.9 % Critically low 36.0-48.0 [facility] Comment on above: Performed By: #### C BC ####[facility] Ojosghfror[address] [place], [place] [address]Dr. Swathi Reis Hemoglobin (Bld) [Mass/Vol] 9.3 g/dL Critically low 12.0-16.0 [facility] Comment on above: Performed By: #### C BC ####[facility] Fqfqoettzc638[address] [place], [place] [address]Dr. Swathi Reis IG # 0.04 10e3/ul Critically high 0.00-0.03 [facility] Comment on above: Performed By: #### C BC ####[facility] Aysopwkvxc[address] [place] [address]Dr. Swathi Reis IG % 0.4 % Normal 0.0-0.5 [facility] Comment on above: Performed By: #### C BC ####[facility] Njlgdzdqva24[address] [place], [place] [address]DrOtto Swathi Reis LYMPH # 1.0 103/ul Critically low 1.2-3.8 [facility] Comment on above: Performed By: #### C BC ####[facility] Rlhiskdlov356[address] [place], [place] [address]Dr. Swathi Reis Lymphocytes/100 WBC (Bld) 8.6 % Critically low 20.5-60.0 [facility] Comment on above: Performed By: #### C BC ####[facility] Mrcjxfakpi47[address] [place] [address]Dr. Swathi Reis MANUAL DIFF REQ NO Normal [facility] Comment on above: Performed By: #### C BC ####[facility] Kthwejwxsp[address] [place] [address]Dr. Swathi Reis MCH (RBC) [Entitic mass] 30.0 pg Normal 26.7-34.0 [facility] Comment on above: Performed By: #### C BC ####[facility] Pelilhthxv689[address] [place], [place] [address]Dr. Swathi Reis MCHC (RBC) [Mass/Vol] 32.2 g/dL Normal 29.9-35.2 [facility] Comment on above: Performed By: #### C BC ####[facility] Rjnolhryfk515[address] [place], [place] [address]Dr. Swathi Reis MCV (RBC) [Entitic vol] 93.2 fL Normal 81.0-99.0 [facility] Comment on above: Performed By: #### C BC ####[facility] Vumdmejfcd124[address] [place], [place] [address]Dr. Swathi Reis MONO # 1.0 103/ul Critically high 0.3-0.8 [facility] Comment on above: Performed By: #### C BC ####[facility] Mmwmjpynpr45[address] [place], [place] [address]Dr. Swathi Reis Monocytes/100 WBC (Bld) 9.0 % Normal 1.7-12.0 [facility] Comment on above: Performed By: #### C BC ####[facility] Vpnyonxjcr168[address] [place], [place] [address]Dr. Swathi Reis NEUT # 9.0 103/ul Critically high 1.4-6.5 [facility] Comment on above: Performed By: #### C BC ####[facility] Fgffhwxbcz[address] [place], [place] [id number]. Swathi Reis Neutrophils/100 WBC (Bld) 79.0 % Critically high 43.0-75.0 [facility] Comment on above: Performed By: #### C BC ####[facility] Ngtjxtztvv74[address] [place] [address]Dr. Swathi Reis Platelet mean volume (Bld) [Entitic vol] 10.7 fL Normal 9.5-13.5 [facility] Comment on above: Performed By: #### C BC ####[facility] Zzbyjjzapt4786 [place] [address]Dr. Swathi Reis PLT 264 103/ul Normal 150-450 [facility] Comment on above: Performed By: #### C BC ####[facility] Pabjrqjkto1351 [place] [address]Dr. Swathi Reis RBC 3.10 106/ul Critically low 4.20-5.40 [facility] Comment on above: Performed By: #### C BC ####[facility] Nzvcjsmank6300[address] [place], [place] [address]Dr. Swathi Reis WBC 11.4 103/ul Critically high 4.0-11.0 [facility] Comment on above: Performed By: #### C BC ####[facility] Vjrzbahgnz27[address] [place] [address]Dr. Swathi Reis POINT OF CARE GLUCOSEon 06-23 Glucose [Mass/Vol] 298 mg/dL Critically high 74-106 [facility] Comment on above: Performed By: #### P OCGLUC ####[facility] Toocfezbmu9[address] [place] [address]Dr. Swathi Reis Glucose [Mass/Vol] 123 mg/dL Critically high 74-106 [facility] Comment on above: Performed By: #### P OCGLUC ####[facility] Fweaodilzw7294 [place] [address]Dr. Swathi Reis Glucose [Mass/Vol] 263 mg/dL Critically high 74-106 [facility] Comment on above: Performed By: #### P OCGLUC ####[facility] Qtnzwofjxq5118 [place] [address]Dr. Swathi Reis Glucose [Mass/Vol] 151 mg/dL Critically high 74-106 T [facility] Comment on above: Performed By: #### P OCGLUC ####[facility] Posxfpcopx8513[address] [place], [place] [address]Dr. Swathi Reis PROF 14(COMP METB)on 022 Albumin [Mass/Vol] 2.5 g/dL Critically low 3.4-5.0 [facility] Comment on above: Performed By: #### B SAFETY DIRECTOR, CMP ####[facility] Nroubofvwf9587[address] [place], [place] [address]Dr. Swathi Reis Albumin/Globulin [Mass ratio] 0.7 {ratio} Normal [facility] Comment on above: Performed By: #### B SAFETY DIRECTOR, CMP ####[facility] Vwcmdgxyzk458[address] [place], [place] [address]Dr. Swathi Reis ALP [Catalytic activity/Vol] 82 U/L Normal 46-116 [facility] Comment on above: Performed By: #### B SAFETY DIRECTOR, CMP ####[facility] Vuiotmxtnl813[address] [place], [place] [address]Dr. Swathi Reis ALT [Catalytic activity/Vol] 13 U/L Critically low 14-59 [facility] Comment on above: Performed By: #### B SAFETY DIRECTOR, CMP ####[facility] Htihtmagmh413[address] [place], [place] [address]Dr. Swathi Reis Anion gap [Moles/Vol] 11.5 mmol/L Normal [facility] Comment on above: Performed By: #### B SAFETY DIRECTOR, CMP ####[facility] Yxlvpvzolo970[address] [place], [place] [address]Dr. Swathi Reis AST [Catalytic activity/Vol] 12 U/L Critically low 15-37 [facility] Comment on above: Performed By: #### B SAFETY DIRECTOR, CMP ####[facility] Aysjwmushz397[address] [place], [place] [address]Dr. Swathi Reis Bilirubin [Mass/Vol] 0.7 mg/dL Normal 0.2-1.0 [facility] Comment on above: Performed By: #### B SAFETY DIRECTOR, CMP ####[facility] Lwxgpgievj4986 [place] [id number]. Swathi Reis Calcium [Mass/Vol] 8.6 mg/dL Normal 8.5-10.1 [facility] Comment on above: Performed By: #### B SAFETY DIRECTOR, CMP ####[facility] Imijokymjc2478 [place] [address]Dr. Swathi Reis Chloride [Moles/Vol] 104 mmol/L Normal 98-107 [facility] Comment on above: Performed By: #### B SAFETY DIRECTOR, CMP ####[facility] Qklylabeok60299[address] [place], [place] [address]Dr. Swathi Reis CO2 [Moles/Vol] 26.6 mmol/L Normal 21.0-32.0 [facility] Comment on above: Performed By: #### B SAFETY DIRECTOR, CMP ####[facility] Lwxxbcvzsg01119[address] [place], [place] [address]Dr. Swathi Reis Creatinine [Mass/Vol] 1.56 mg/dL Critically high 0.55-1.02 [facility] Comment on above: Performed By: #### B SAFETY DIRECTOR, CMP ####[facility] Lznhretkua489396 [address] [place], [place] [address]Dr. Swathi Reis EGFR-AF MAURITANIAN 39 mL/min/1.73m2 Critically low >=60 [facility] Comment on above: Performed By: #### B SAFETY DIRECTOR, CMP ####[facility] Iuupaaahhh304[address] [place], [place] [address]Dr. Swathi Reis EGFR-NON AF MAURITANIAN 32 mL/min/1.73m2 Critically low >=60 [facility] Comment on above: Performed By: #### B SAFETY DIRECTOR, CMP ####[facility] Vkwdchgrmp224396 [address] [place], [place] [address]Dr. Swathi Reis Globulin (S) [Mass/Vol] 3.7 g/dL Normal [facility] Comment on above: Performed By: #### B SAFETY DIRECTOR, CMP ####[facility] Gvzfxfuwll864[address] [place], [place] [address]Dr. Swathi Reis Glucose [Mass/Vol] 149 mg/dL Critically high 74-106 [facility] Comment on above: Performed By: #### B SAFETY DIRECTOR, CMP ####[facility] Vpoetuwdnv785[address] [place], [place] [address]Dr. Swathi Reis Potassium [Moles/Vol] 3.1 mmol/L Critically low 3.5-5.1 [facility] Comment on above: Performed By: #### B SAFETY DIRECTOR, CMP ####[facility] Czvhnkptou422[address] [place], [place] [address]Dr. Swathi Reis Protein [Mass/Vol] 6.2 g/dL Critically low 6.4-8.2 Th [facility] Comment on above: Performed By: #### B SAFETY DIRECTOR, CMP ####[facility] Ufeqdvhaiy212[address] [place], [place] [address]Dr. Swathi Reis Sodium [Moles/Vol] 139 mmol/L Normal 136-145 [facility] Comment on above: Performed By: #### B SAFETY DIRECTOR, CMP ####[facility] Jjrykdfrxd925[address] [place], [place] [address]Dr. Swathi Reis Urea nitrogen [Mass/Vol] 19.0 mg/dL Critically high 7.0-18.0 [facility] Comment on above: Performed By: #### B SAFETY DIRECTOR, CMP ####[facility] Rxyllailnn535[address] [place], [place] [address]Dr. Swathi Reis Urea nitrogen/Creatinine [Mass ratio] 12.2 mg/mg Normal [facility] Comment on above: Performed By: #### B SAFETY DIRECTOR, CMP ####[facility] Ycqwuyfcua495[address] [place], [place] [address]Dr. Swathi Reis BNPon 07-06-2022 Natriuretic peptide B (Bld) [Mass/Vol] 4734.0 pg/mL Critically high <=1,800.0 [facility] Comment on above: Performed By: #### B SAFETY DIRECTOR, CMP ####[facility] Orvpfwjclx0917[address] [place], [place] [address]Dr. Swathi Reis CBC AUTO DIFFon 07-06-2022 BASO # 0.0 103/ul Normal 0.0-0.1 [facility] Comment on above: Performed By: #### C BC ####[facility] Syhpfhhmul0944 [place] [id number]. Swathi Reis Basophils/100 WBC (Bld) 0.3 % Normal 0.2-2.0 [facility] Comment on above: Performed By: #### C BC ####[facility] Cnordsvsub6712 [place] [id number]. Swathi Reis EO # 0.0 103/ul Normal 0.0-0.7 [facility] Comment on above: Performed By: #### C BC ####[facility] Itnvgvppoc2640[address] [place], [place] [address]Dr. Swathi Reis Eosinophils/100 WBC (Bld) 0.1 % Critically low 0.9-7.0 [facility] Comment on above: Performed By: #### C BC ####[facility] Zkraasdzvm0264[address] [place], [place] [address]Dr. Swathi Reis Erythrocyte distribution width (RBC) [Ratio] 13.5 % Normal 11.0-15.0 [facility] Comment on above: Performed By: #### C BC ####[facility] Pgbsmpmyxd14[address] [place] [address]Dr. Swathi Reis Hematocrit (Bld) [Volume fraction] 29.6 % Critically low 36.0-48.0 [facility] Comment on above: Performed By: #### C BC ####[facility] Svwwowfays4506 [place] [id number]. Swathi Reis Hemoglobin (Bld) [Mass/Vol] 9.6 g/dL Critically low 12.0-16.0 [facility] Comment on above: Performed By: #### C BC ####[facility] Ffmbtubxrt8479 [place] [address]Dr. Swathi Reis IG # 0.07 10e3/ul Critically high 0.00-0.03 [facility] Comment on above: Performed By: #### C BC ####[facility] Izylxhqaoh[address] [place], [place] [address]Dr. Swathi Reis IG % 0.5 % Normal 0.0-0.5 [facility] Comment on above: Performed By: #### C BC ####[facility] Uhtzsqjoag5005 [place] [id number]. Swathi Reis LYMPH # 1.4 103/ul Normal 1.2-3.8 [facility] Comment on above: Performed By: #### C BC ####[facility] P[address]immaqppy[address] [place], [place] [address]Ee. Swathi Chato Lymphocytes/100 WBC (Bld) 9.7 % Critically low 20.5-60.0 [facility] Comment on above: Performed By: #### C BC ####[facility] Wsnmavktfk5305 [place] [phone]. Inessatracy Reis MANUAL DIFF REQ NO Normal [facility] Comment on above: Performed By: #### C BC ####[facility] Sotlrpelew3464 [place] [id number]. Swathi Chato MCH (RBC) [Entitic mass] 29.9 pg Normal 26.7-34.0 [facility] Comment on above: Performed By: #### C BC ####[facility] Ngnhzutamd7583 [place] [phone]. Swathi Reis MCHC (RBC) [Mass/Vol] 32.4 g/dL Normal 29.9-35.2 [facility] Comment on above: Performed By: #### C BC ####[facility] Xewimiptxs1749 [place] [phone]. Swathi Reis MCV (RBC) [Entitic vol] 92.2 fL Normal 81.0-99.0 [facility] Comment on above: Performed By: #### C BC ####[facility] Bmhruvwmco2419 [place] [phone]. Swathi Reis MONO # 1.3 103/ul Critically high 0.3-0.8 [facility] Comment on above: Performed By: #### C BC ####[facility] Bhqugtqhxt8062 [place] [id number]. Swathi Chato Monocytes/100 WBC (Bld) 9.4 % Normal 1.7-12.0 [facility] Comment on above: Performed By: #### C BC ####[facility] Cqfdyeozbv8417 [place] [phone]. Swathi Reis NEUT # 11.4 103/ul Critically high 1.4-6.5 [facility] Comment on above: Performed By: #### C BC ####[facility] Lxisdmdpit3797 [place] [phone]. Swathi Reis Neutrophils/100 WBC (Bld) 80.0 % Critically high 43.0-75.0 [facility] Comment on above: Performed By: #### C BC ####[facility] Mmhccpdukm9357 [place] [address]Dr. Swathi Reis Platelet mean volume (Bld) [Entitic vol] 10.6 fL Normal 9.5-13.5 [facility] Comment on above: Performed By: #### C BC ####[facility] Ephaeejtce2390 [place] [address]Dr. Swathi Reis PLT 283 103/ul Normal 150-450 [facility] Comment on above: Performed By: #### C BC ####[facility] Jopizdernh4774 [place] [phone]. Swathi Reis RBC 3.21 106/ul Critically low 4.20-5.40 [facility] Comment on above: Performed By: #### C BC ####[facility] Yrsraucsvv8020 [place] [address]Dr. Swathi Reis WBC 14.2 103/ul Critically high 4.0-11.0 [facility] Comment on above: Performed By: #### C BC ####[facility] Vdlsqsrmly[address] [place], [place] [address]Dr. Swathi Reis ECHOCARDIO M/2D COMPLETEon ECHOCARDIO M/2D COMPLETE Normal [facility] POINT OF CARE GLUCOSEon 06-23 Glucose [Mass/Vol] 227 mg/dL Critically high 74-106 T [facility] Comment on above: Performed By: #### P OCGLUC ####[facility] Sykqrfyfux396[address] [place], [place] [address]Dr. Swathi Reis Glucose [Mass/Vol] 175 mg/dL Critically high 74-106 T [facility] Comment on above: Performed By: #### P OCGLUC ####[facility] Rtjegchook4634 [place] [address]Dr. Swathi Reis PROF 14(COMP METB)on 022 Albumin [Mass/Vol] 2.6 g/dL Critically low 3.4-5.0 [facility] Comment on above: Performed By: #### B SAFETY DIRECTOR, CMP ####[facility] Lisxclhnyk1201[address] [place], [place] [address]Dr. Swathi Reis Albumin/Globulin [Mass ratio] 0.7 {ratio} Normal [facility] Comment on above: Performed By: #### B SAFETY DIRECTOR, CMP ####[facility] Pnfgwpkhja719[address] [place], [place] [address]Dr. Swathi Reis ALP [Catalytic activity/Vol] 79 U/L Normal 46-116 [facility] Comment on above: Performed By: #### B SAFETY DIRECTOR, CMP ####[facility] Dlnmppgeuo5745[address] [place], [place] [address]Dr. Swathi Reis ALT [Catalytic activity/Vol] 17 U/L Normal 14-59 [facility] Comment on above: Performed By: #### B SAFETY DIRECTOR, CMP ####[facility] Zuehjtfuya8112[address] [place], [place] [address]Dr. Swathi Reis Anion gap [Moles/Vol] 11.5 mmol/L Normal [facility] Comment on above: Performed By: #### B SAFETY DIRECTOR, CMP ####[facility] Hvmnynombh4400[address] [place], [place] [address]Dr. Swathi Reis AST [Catalytic activity/Vol] 11 U/L Critically low 15-37 [facility] Comment on above: Performed By: #### B SAFETY DIRECTOR, CMP ####[facility] Cubvtpvopr1114[address] [place], [place] [address]Dr. Swathi Reis Bilirubin [Mass/Vol] 0.9 mg/dL Normal 0.2-1.0 [facility] Comment on above: Performed By: #### B SAFETY DIRECTOR, CMP ####[facility] Sdzxlwosik80[address] [place], [place] [address]Dr. Swathi Reis Calcium [Mass/Vol] 8.3 mg/dL Critically low 8.5-10.1 Th [facility] Comment on above: Performed By: #### B SAFETY DIRECTOR, CMP ####[facility] Tmmvrldpqs3038[address] [place], [place] [address]Dr. Swathi Reis Chloride [Moles/Vol] 102 mmol/L Normal 98-107 [facility] Comment on above: Performed By: #### B SAFETY DIRECTOR, CMP ####[facility] Xoluuqwvdp2967[address] [place], [place] [address]Dr. Swathi Reis CO2 [Moles/Vol] 29.5 mmol/L Normal 21.0-32.0 [facility] Comment on above: Performed By: #### B SAFETY DIRECTOR, CMP ####[facility] Ogdoipsmif6200[address] [place], [place] [address]Dr. Swathi Reis Creatinine [Mass/Vol] 1.47 mg/dL Critically high 0.55-1.02 [facility] Comment on above: Performed By: #### B SAFETY DIRECTOR, CMP ####[facility] Wlbvcaylvo436[address] [place], [place] [address]Dr. Swathi Reis EGFR-AF MAURITANIAN 42 mL/min/1.73m2 Critically low >=60 [facility] Comment on above: Performed By: #### B SAFETY DIRECTOR, CMP ####[facility] Uuzcbxzsiy9525[address] [place], [place] [address]Dr. Swathi Reis EGFR-NON AF MAURITANIAN 34 mL/min/1.73m2 Critically low >=60 [facility] Comment on above: Performed By: #### B SAFETY DIRECTOR, CMP ####[facility] Lzfloxqtxf9000[address] [place], [place] [address]Dr. Swathi Reis Globulin (S) [Mass/Vol] 3.7 g/dL Normal [facility] Comment on above: Performed By: #### B SAFETY DIRECTOR, CMP ####[facility] Ahgbgmacru407[address] [place], [place] [address]Dr. Swathi Reis Glucose [Mass/Vol] 150 mg/dL Critically high 74-106 T [facility] Comment on above: Performed By: #### B SAFETY DIRECTOR, CMP ####[facility] Trjhznhmfc1703 [place] [address]Dr. Inessatracy Reis Potassium [Moles/Vol] 3.0 mmol/L Critically low 3.5-5.1 [facility] Comment on above: Performed By: #### B SAFETY DIRECTOR, CMP ####[facility] Ngvitkqilm6543 [place] [address]Dr. Inessatracy Reis Protein [Mass/Vol] 6.3 g/dL Critically low 6.4-8.2 [facility] Comment on above: Performed By: #### B SAFETY DIRECTOR, CMP ####[facility] Coxoytcxya7218[address] [place], [place] [address]Dr. Swathi Reis Sodium [Moles/Vol] 140 mmol/L Normal 136-145 [facility] Comment on above: Performed By: #### B SAFETY DIRECTOR, CMP ####[facility] Ziwdfesxma6445[address] [place], [place] [address]Dr. Swathi Reis Urea nitrogen [Mass/Vol] 16.0 mg/dL Normal 7.0-18.0 [facility] Comment on above: Performed By: #### B SAFETY DIRECTOR, CMP ####[facility] Artmicmhji080[address] [place], [place] [address]Dr. Swathi Reis Urea nitrogen/Creatinine [Mass ratio] 10.9 mg/mg Normal [facility] Comment on above: Performed By: #### B SAFETY DIRECTOR, CMP ####[facility] Uwpkerevir712[address] [place], [place] [address]Dr. Swathi Reis XR CHEST 2 Von 07-06-2022 XR CHEST 2 V Normal [facility] BLOOD GASES BTYon 07-05-2022 02 MODE NASAL CANNULA Normal [facility] Comment on above: Performed By: #### A BG ####[facility] Zkvwlmotti1200[address] [place], [place] [address]Dr. Swathi Reis ALLENS TEST Positive Normal [facility] Comment on above: Performed By: #### A BG ####[facility] Rrgbljualy0515[address] [place], [place] [address]Dr. Swathi Reis Base excess Calc (Bld) [Moles/Vol] 3.1 mmol/L Critically high -2.0-2.0 [facility] Comment on above: Performed By: #### A BG ####[facility] Txvfmwxdrj5564 [place] [address]Dr. wSathi Reis BIPAP PRESSURE Normal [facility] Comment on above: Performed By: #### A BG ####[facility] Zypqmfpyvu0566 [place] [address]Dr. Swathi Reis CPAP Normal [facility] Comment on above: Performed By: #### A BG ####[facility] Hwggrgciyc3736[address] [place], [place] [address]Dr. Swathi Reis FIO2 Normal [facility] Comment on above: Performed By: #### A BG ####[facility] Jovnlltfud917[address] [place], [place] [address]Dr. Swathi Reis HCO3 (Bld) [Moles/Vol] 27.0 mmol/L Critically high 22.0-26.0 [facility] Comment on above: Performed By: #### A BG ####[facility] Lttgkokfmi190[address] [place], [place] [address]Dr. Swathi Reis LPM 5 Normal [facility] Comment on above: Performed By: #### A BG ####[facility] Llopgxashf380[address] [place], [place] [address]Dr. Swathi Reis MINUTE VOLUME Normal [facility] Comment on above: Performed By: #### A BG ####[facility] Bicgnadoam535[address] [place], [place] [address]Dr. Swathi Reis Oxygen (Bld) [Partial pressure] 71.4 mm[Hg] Critically low 80.0-100.0 [facility] Comment on above: Performed By: #### A BG ####[facility] Rzyfwytsas5568[address] [place], [place] [address]Dr. Swathi Reis Oxygen saturation in Blood 95.5 % Normal 95.0-100.0 [facility] Comment on above: Performed By: #### A BG ####[facility] Yssoybuwoe355[address] [place], [place] [address]Dr. Swathi Reis PCO2 40.2 mmHg Normal 35.0-45.0 [facility] Comment on above: Performed By: #### A BG ####[facility] Qkzrjmekvo7393 [place] [address]Dr. Swathi Reis PEEP [facility] Comment on above: Performed By: #### A BG ####[facility] Gbnrnaxdfw8091 [place] [address]Dr. Swathi Reis pH (Bld) 7.440 [pH] Normal 7.350-7.450 [facility] Comment on above: Performed By: #### A BG ####[facility] Vyqzudowdc4348 [place] [address]Dr. Swathi Reis PIP [facility] Comment on above: Performed By: #### A BG ####[facility] Dhhmuotkxn416[address] [place], [place] [address]Dr. Swathi Reis PS [facility] Comment on above: Performed By: #### A BG ####[facility] Xlwfmiqjdt433[address] [place], [place] [address]Dr. Swathi Reis PUNCTURE SITE RR Normal [facility] Comment on above: Performed By: #### A BG ####[facility] Ltofqzbrzy[address] [place], [place] [address]Dr. Sawthi Reis RATE [facility] Comment on above: Performed By: #### A BG ####[facility] Cgnkaiadvj766[address] [place], [place] [address]Dr. Swathi Reis VENT MODE [facility] Comment on above: Performed By: #### A BG ####[facility] Liievhprks62[address] [place], [place] [address]Dr. Swathi Reis [place] [facility] Comment on above: Performed By: #### A BG ####[facility] Pcwphfjmif[address] [place] [id number]. Swathi Reis BNPon 07-05-2022 Natriuretic peptide B (Bld) [Mass/Vol] 2257.0 pg/mL Critically high <=1,800.0 [facility] Comment on above: Performed By: #### H STROPN, CMP, BNP ####[facility] K[address]fxt[address] [place] [phone]. Swathi Reis CARDIAC TRINA 3-6on 2 CK [Catalytic activity/Vol] 54 U/L Normal 26-192 [facility] Comment on above: Performed By: #### C MREP ####[facility] Vujnfrubed40[address] [place], [place] [address]Id. Swathi Reis CK.MB [Mass/Vol] ng/mL Normal <=3.60 [facility] Comment on above: Performed By: #### C MREP ####[facility] Zjegjguiiz8[address] [place] [phone]. Swathi Reis HSTROP 18.6 pg/mL Normal 4.0-51.3 [facility] Comment on above: Result Comment: CUT- OFF POINTS HAVE BEEN ESTABLISHED BASED ON THE FOURTH UNIVERSAL DEFINITIONS OF MYOCARDIALINFARCTION. THE UPPER REFERENCE LIMIT (URL) OF TROPONIN, DEFINED THE 99TH PERCENTILE OFcTnI DISTRIBUTION IN A REFERENCE POPULATION, HAS BEEN CONFIRMED THE DECISION THRESHOLDFOR NM DIAGNOSIS. Performed By: #### C MREP ####[facility] Eynvjhutmf[address] [place] [phone]. Swathi Reis CK [Catalytic activity/Vol] 38 U/L Normal 26-192 [facility] Comment on above: Performed By: #### C MREP ####[facility] Vqhrgmgcai0877 [place] [phone]. Swathi Reis CK.MB [Mass/Vol] 0.51 ng/mL Normal <=3.60 [facility] Comment on above: Performed By: #### C MREP ####[facility] Aoosmjpplg7290 [place] [phone]. Swathi Reis HSTROP 16.6 pg/mL Normal 4.0-51.3 [facility] Comment on above: Result Comment: CUT- OFF POINTS HAVE BEEN ESTABLISHED BASED ON THE FOURTH UNIVERSAL DEFINITIONS OF MYOCARDIALINFARCTION. THE UPPER REFERENCE LIMIT (URL) OF TROPONIN, DEFINED THE 99TH PERCENTILE OFcTnI DISTRIBUTION IN A REFERENCE POPULATION, HAS BEEN CONFIRMED THE DECISION THRESHOLDFOR NM DIAGNOSIS. Performed By: #### C MREP ####[facility] Dbwndsrluu2904 [place] [phone]. Swathi Reis CBC W MANUAL DIFFon 07-05-20 22 ATYPICAL LYMPH # Normal [facility] Comment on above: Performed By: #### C NGA ####[facility] Dzbkizgrgo9456 [place] [phone]. Swathi Reis ATYPICAL LYMPH % Normal [facility] Comment on above: Performed By: #### C NGA ####[facility] Xumfatorod[address] [place] [address]Dr. Swathi Reis BAND # 0.4 103/ul Critically high 0.0-0.3 [facility] Comment on above: Performed By: #### C NGA ####[facility] Fcdrmsgtnq[address] [place], [place] [address]Dr. Swathi Reis BAND % 2 % Normal 0-5 [facility] Comment on above: Performed By: #### C NGA ####[facility] Lybbxjkhid[address] [place], [place] [address]Dr. Swathi Reis BASOM # 0.00 103/ul Normal 0.00-0.10 [facility] Comment on above: Performed By: #### C NGA ####[facility] Fueljxgabn[address] [place], [place] [address]Dr. Swathi Reis BASOM % 0.0 % Critically low 0.2-2.0 [facility] Comment on above: Performed By: #### C NGA ####[facility] Nsbbvpijld69[address] [place], [place] [address]Dr. Swathi Reis BLAST # Normal [facility] Comment on above: Performed By: #### C NGA ####[facility] Xtezcmljnm[address] [place], [place] [address]Dr. Swathi Reis BLAST % Normal [facility] Comment on above: Performed By: #### C NGA ####[facility] Qstwunvgbo5[address] [place] [address]Dr. Swathi Reis CORRECTED WBC Normal 4.0-11.0 [facility] Comment on above: Performed By: #### C NGA ####[facility] Aevyiwnpqg2436 [place], [place] [address]Lh. Swathi Reis EOS # 0.00 103/ul Normal 0.00-0.70 [facility] Comment on above: Performed By: #### C NGA ####[facility] Lpzmkgwqak5623 [place], [place] [address]Mc. Swathi Reis EOS% 0.0 % Critically low 0.9-7.0 [facility] Comment on above: Performed By: #### C NGA ####[facility] Znroobrtai[address] [place], [place] [address]Hq. Swathi Reis HCT 32.7 % Critically low 36.0-48.0 [facility] Comment on above: Performed By: #### C NGA ####[facility] Oocwdcijsr05[address] [place] [phone]. Swathi Reis HGB 10.6 g/dl Critically low 12.0-16.0 [facility] Comment on above: Performed By: #### C NGA ####[facility] Wyfhwsyhcq0226 [place], [place] [address]Sr. Swathi Reis LYMPHM # 0.84 103/ul Critically low 1.20-3.80 [facility] Comment on above: Performed By: #### C NGA ####[facility] Wxmbyeiwfk8025 [place], [place] [address]Xh. Swathi Reis LYMPHM% 4.0 % Critically low 20.5-60.0 [facility] Comment on above: Performed By: #### C NGA ####[facility] Csfnyybqtl2590 [place], [place] [address]Ar. Swathi Reis MCH 30.1 pg Normal 26.7-34.0 [facility] Comment on above: Performed By: #### C NGA ####[facility] Nokivomvll4890 [place] [phone]. Swathi Reis MCHC 32.4 g/dl Normal 29.9-35.2 [facility] Comment on above: Performed By: #### C NGA ####[facility] Cyvxymxvhh1558 [place] [phone]. Swathi Reis MCV 92.9 fL Normal 81.0-99.0 [facility] Comment on above: Performed By: #### C BCMAN ####[facility] Syxwtppmvb9755 [place] [phone]. Swathi Reis METAMYELOCYTE # Normal [facility] Comment on above: Performed By: #### C BCYUN ####[facility] Eeuddkwgcs8106 [place] [phone]. Swathi Chato METAMYELOCYTE % Normal [facility] Comment on above: Performed By: #### C NGA ####[facility] Izciphmlgu[address] [place], [place] [address]Dr. Swathi Chato MONOM# 1.88 103/ul Critically high 0.30-0.80 [facility] Comment on above: Performed By: #### C NGA ####[facility] Zuaxqslvbu[address] [place], [place] [address]Dr. Inessatracy Reis MONOM% 9.0 % Normal 1.7-12.0 [facility] Comment on above: Performed By: #### C NGA ####[facility] Okjlwpnuly[address] [place], [place] [address]Dr. Inessatracy Reis MPV 10.6 fL Normal 9.5-13.5 [facility] Comment on above: Performed By: #### C NGA ####[facility] Oq[address]wuk[address] [place], [place] [address]Dr. Swathi Reis MYELOCYTE # Normal [facility] Comment on above: Performed By: #### C NGA ####[facility] Zhovmwazye2006 [place] [phone]. Swathi Reis MYELOCYTE % Normal [facility] Comment on above: Performed By: #### C NGA ####[facility] Xkdjyendjb[address] [place], [place] [address]Dr. Swathi Reis NRBC Normal [facility] Comment on above: Performed By: #### C NGA ####[facility] Ygbkumjqdm024[address] [place], [place] [address]Dr. Swathi Reis PLT 335 103/ul Normal 150-450 [facility] Comment on above: Performed By: #### Kenney SYLVESTER ####[facility] Bysbmleoga[address] [place], [place] [address]Qv. Swathi Reis RBC 3.52 106/ul Critically low 4.20-5.40 [facility] Comment on above: Performed By: #### Kenney SYLVESTER ####[facility] Tuymylcgwl0181 [place] [phone]. Swathi Reis RDW 13.5 % Normal 11.0-15.0 [facility] Comment on above: Performed By: #### Kenney SYLVESTER ####[facility] Cxrrvmduhm3174 [place] [phone]. Swathi Reis SEG # 17.76 103/ul Critically high 1.40-6.50 [facility] Comment on above: Performed By: #### Kenney SYLVESTER ####[facility] Jfautvzphq5741 [place] [phone]. Swathi Reis SEG % 85.0 % Critically high 43.0-75.0 [facility] Comment on above: Performed By: #### Kenney SYLVESTER ####[facility] Dkdqaqglim6711 [place] [phone]. Swathi Reis WBC 20.9 103/ul Critically high 4.0-11.0 [facility] Comment on above: Performed By: #### Kenney SYLVESTER ####[facility] Pnkbgedcag4823 [place] [phone]. Swathi Reis CTA CHEST WO W CONon 022 CTA CHEST WO W CON Normal The [facility] CULTURE BLOODon 07-05-2022 Microscopic examination of blood, culture Culture Observations: NO GROWTH AT 5 DAYS. Normal [facility] Comment on above: Performed By: #### B LDCX2 ####[facility] Vxuqvnetiw9374 [place] [phone]. Swathi Reis Microscopic examination of blood, culture Culture Observations: NO GROWTH AT 5 DAYS. Normal [facility] Comment on above: Performed By: #### B LDCX1 ####[facility] Ikdsvqrykz90[address] [place], [place] [address]Ju. Swathi Reis Covid-19 PCR (CVDTBH)on 06-23 SARS-CoV-2 (COVID-19) RNA ÓSCAR+probe Ql (Unsp spec) Not detected Normal NOT DETECTED [facility] Comment on above: Result Comment: When [...] for this test is supported by the [place] of Health and Human Service's declaration that [...] be used). Performed By: #### C VDTBH ####[facility] Ykvyrqmfpu71[address] [place] [phone]. Swathi Reis D-DIMERon 07-05-2022 D-DIMER 2.17 mg/L FEU Critically high <=0.59 The [facility] Comment on above: Performed By: #### P T, DDIM, PTT ####[facility] Qksnwimfcw0228 [place], [place] [address]Cs. Swathi Reis D-DIMER COMMENTS SEE BELOW Normal [facility] Comment on above: Result Comment: Incr [...] Performed By: #### P T, DDIM, PTT ####[facility] C[address]whzjjfy[address] [place] [address]Dr. Swathi Reis LACTATE/LACTIC ACIDon 2021 Lactate [Moles/Vol] 2.5 mmol/L Critically high 0.4-1.9 [facility] Comment on above: Performed By: #### L ACT ####[facility] Drdcfjhzph74[address] [place] [address]Dr. Swathi Reis Lactate [Moles/Vol] 3.2 mmol/L Critically high 0.4-1.9 [facility] Comment on above: Performed By: #### L ACT ####[facility] Hlkytvmnng[address] [place], [place] [address]Dr. Swathi Reis POINT OF CARE GLUCOSEon 06-23 Glucose [Mass/Vol] 179 mg/dL Critically high 74-106 T [facility] Comment on above: Performed By: #### P OCGLUC ####[facility] Jtvzysyxqi[address] [place], [place] [address]Dr. Swathi Reis PROF 14(COMP METB)on 022 Albumin [Mass/Vol] 3.2 g/dL Critically low 3.4-5.0 [facility] Comment on above: Performed By: #### H STROPN, CMP, BNP ####[facility] Mmobbnhhaq7[address] [place] [address]Dr. Swathi Reis Albumin/Globulin [Mass ratio] 0.8 {ratio} Normal [facility] Comment on above: Performed By: #### H STROPN, CMP, BNP ####[facility] Ofvppnovir9[address] [place] [address]Dr. Swathi Reis ALP [Catalytic activity/Vol] 98 U/L Normal 46-116 [facility] Comment on above: Performed By: #### H STROPN, CMP, BNP ####[facility] Hbfzaterdj9725 [place] [address]Dr. Swathi Reis ALT [Catalytic activity/Vol] 18 U/L Normal 14-59 [facility] Comment on above: Performed By: #### H STROPN, CMP, BNP ####[facility] Qcuunjltgj9157 [place] [address]Dr. Swathi Reis Anion gap [Moles/Vol] 11.5 mmol/L Normal [facility] Comment on above: Performed By: #### H STROPN, CMP, BNP ####[facility] Lehvwfygkw5859 [place] [address]Dr. Swathi Reis AST [Catalytic activity/Vol] 16 U/L Normal 15-37 [facility] Comment on above: Performed By: #### H STROPN, CMP, BNP ####[facility] Trcltcoyrv0675 [place] [address]Dr. Swathi Reis Bilirubin [Mass/Vol] 0.7 mg/dL Normal 0.2-1.0 [facility] Comment on above: Performed By: #### H STROPN, CMP, BNP ####[facility] Woagcomiyz[address] [place], [place] [address]Dr. Swathi Reis Calcium [Mass/Vol] 9.3 mg/dL Normal 8.5-10.1 [facility] Comment on above: Performed By: #### H STROPN, CMP, BNP ####[facility] Epekafatre[address] [place], [place] [address]Dr. Swathi Reis Chloride [Moles/Vol] 100 mmol/L Normal 98-107 [facility] Comment on above: Performed By: #### H STROPN, CMP, BNP ####[facility] Jgwehyjafk[address] [place] [address]Dr. Swathi Reis CO2 [Moles/Vol] 29.5 mmol/L Normal 21.0-32.0 [facility] Comment on above: Performed By: #### H STROPN, CMP, BNP ####[facility] Gqucnhvccn25[address] [place] [address]Dr. Swathi Reis Creatinine [Mass/Vol] 1.66 mg/dL Critically high 0.55-1.02 [facility] Comment on above: Performed By: #### H STROPN, CMP, BNP ####[facility] Lqukwdfxjg[address] [place], [place] [address]Dr. Swathi Reis EGFR-AF MAURITANIAN 36 mL/min/1.73m2 Critically low >=60 [facility] Comment on above: Performed By: #### H STROPN, CMP, BNP ####[facility] Klxxluxtpe[address] [place] [address]Dr. Swathi Reis EGFR-NON AF MAURITANIAN 30 mL/min/1.73m2 Critically low >=60 [facility] Comment on above: Performed By: #### H STROPN, CMP, BNP ####[facility] Gqhaasrxxl[address] [place] [address]Dr. Swathi Reis Globulin (S) [Mass/Vol] 4.0 g/dL Normal [facility] Comment on above: Performed By: #### H STROPN, CMP, BNP ####[facility] Gqtgboruve6781 [place] [address]Dr. Swathi Reis Glucose [Mass/Vol] 247 mg/dL Critically high 74-106 [facility] Comment on above: Performed By: #### H STROPN, CMP, BNP ####[facility] Dpaugvcngg[address] [place], [place] [address]Dr. Swathi Reis Potassium [Moles/Vol] 4.0 mmol/L Normal 3.5-5.1 [facility] Comment on above: Performed By: #### H STROPN, CMP, BNP ####[facility] Rxmqeomkbw0268 [place] [address]Dr. Swathi Reis Protein [Mass/Vol] 7.2 g/dL Normal 6.4-8.2 The [facility] Comment on above: Performed By: #### H STROPN, CMP, BNP ####[facility] Sroofrlfjk[address] [place] [address]Dr. Swathi Reis Sodium [Moles/Vol] 137 mmol/L Normal 136-145 [facility] Comment on above: Performed By: #### H STROPN, CMP, BNP ####[facility] Zwxghzwlkk3244 [place] [address]Dr. Swathi Reis Urea nitrogen [Mass/Vol] 22.0 mg/dL Critically high 7.0-18.0 [facility] Comment on above: Performed By: #### H STROPN, CMP, BNP ####[facility] Xpmvnzcukn6610 [place] [address]Dr. Swathi Reis Urea nitrogen/Creatinine [Mass ratio] 13.3 mg/mg Normal [facility] Comment on above: Performed By: #### H STROPN, CMP, BNP ####[facility] Qbxbazyspb9388 [place] [address]Dr. Swathi Reis PROTIMEon 07-05-2022 INR Coag (PPP) [Relative time] 1.10 {INR} Normal [facility] Comment on above: Performed By: #### P T, DDIM, PTT ####[facility] Iiuemmwphq[address] [place] [address]Dr. Swathi Reis INR GUIDELINES SEE BELOW Normal [facility] Comment on above: Result Comment: HARRIETT RED INR: 2.0 - 3.0 CONDITIONS NOT LISTED BELOW 2.5 - 3.5 FOR PROSTHETIC HEART VALVE REPLACEMENT 2.5 - 3.5 RECURRENT THROMBOSIS Performed By: #### P T, DDIM, PTT ####[facility] Zukejbzyuf[address] [place] [address]Dr. Swathi Reis PT Coag (PPP) [Time] 11.8 s Critically high 9.0-11.6 [facility] Comment on above: Performed By: #### P T, DDIM, PTT ####[facility] Ivdjbeklvz75[address] [place] [address]Dr. Swathi Reis PTTon 07-05-2022 aPTT Coag (Bld) [Time] 27.2 s Normal 22.3-36.2 [facility] Comment on above: Performed By: #### P T, DDIM, PTT ####[facility] Gdsfrvrqwh[address] [place], [place] [address]Dr. Inessatracy Reis TROPONIN, HIGH SENSITIVITYon 07-05-2022 HSTROP 16.2 pg/mL Normal 4.0-51.3 [facility] Comment on above: Result Comment: CUT- OFF POINTS HAVE BEEN ESTABLISHED BASED ON THE FOURTH UNIVERSAL DEFINITIONS OF MYOCARDIALINFARCTION. THE UPPER REFERENCE LIMIT (URL) OF TROPONIN, DEFINED THE 99TH PERCENTILE OFcTnI DISTRIBUTION IN A REFERENCE POPULATION, HAS BEEN CONFIRMED THE DECISION THRESHOLDFOR NM DIAGNOSIS. Performed By: #### H STROPN, CMP, BNP ####[facility] A[address]vhhvcys[address] [place], [place] [address]Yl. 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 Swathi Reis Basophils/100 WBC (Bld) 0.5 % Normal 0.2-2.0 [facility] Comment on above: Performed By: #### C BC ####[facility] Hnfysemusr[address] [place], [place] [address]Dr. Swathi Reis EO # 0.1 103/ul Normal 0.0-0.7 [facility] Comment on above: Performed By: #### C BC ####[facility] Obafqnlknw9838 [place] [address]Dr. Swathi Reis Eosinophils/100 WBC (Bld) 1.1 % Normal 0.9-7.0 [facility] Comment on above: Performed By: #### C BC ####[facility] Tnrtpmvyup6553 [place] [address]Dr. Swathi Reis Erythrocyte distribution width (RBC) [Ratio] 13.2 % Normal 11.0-15.0 [facility] Comment on above: Performed By: #### C BC ####[facility] Szsdrxeazu[address] [place], [place] [address]Dr. Swathi Reis Hematocrit (Bld) [Volume fraction] 40.9 % Normal 36.0-48.0 [facility] Comment on above: Performed By: #### C BC ####[facility] Ebhgbmrttu7319 [place] [phone]. Swathi Reis Hemoglobin (Bld) [Mass/Vol] 12.8 g/dL Normal 12.0-16.0 [facility] Comment on above: Performed By: #### C BC ####[facility] Syjnmvmbyx8612 [place] [phone]. Swathi Reis IG # 0.04 10e3/ul Critically high 0.00-0.03 [facility] Comment on above: Performed By: #### C BC ####[facility] Iocwncxvut5443 [place] [phone]. Swathi Reis IG % 0.4 % Normal 0.0-0.5 [facility] Comment on above: Performed By: #### C BC ####[facility] Eqafvxfqqi4826 [place] [address]Dr. Swathi Reis LYMPH # 1.4 103/ul Normal 1.2-3.8 [facility] Comment on above: Performed By: #### C BC ####[facility] Ozhkashznt9454 [place] [address]Dr. Swathi Reis Lymphocytes/100 WBC (Bld) 13.2 % Critically low 20.5-60.0 [facility] Comment on above: Performed By: #### C BC ####[facility] Esqhedztpj6139 [place] [phone]. Swathi Reis MANUAL DIFF REQ NO Normal [facility] Comment on above: Performed By: #### C BC ####[facility] Nlmumhgext4317 [place] [phone]. Swathi Reis MCH (RBC) [Entitic mass] 29.5 pg Normal 26.7-34.0 [facility] Comment on above: Performed By: #### C BC ####[facility] Ygaqeloqnl2568 [place] [phone]. Swathi Reis MCHC (RBC) [Mass/Vol] 31.3 g/dL Normal 29.9-35.2 [facility] Comment on above: Performed By: #### C BC ####[facility] Hpwjroqwwu2839 [place] [address]Dr. Swathi Reis MCV (RBC) [Entitic vol] 94.2 fL Normal 81.0-99.0 [facility] Comment on above: Performed By: #### C BC ####[facility] Rphxgbjela8452 [place] [address]Dr. Swathi Reis MONO # 0.9 103/ul Critically high 0.3-0.8 [facility] Comment on above: Performed By: #### C BC ####[facility] W[address]qtaurlvs[address] [place], [place] [address]Dr. Swathi Reis Monocytes/100 WBC (Bld) 8.9 % Normal 1.7-12.0 [facility] Comment on above: Performed By: #### C BC ####[facility] Zoksjgscsm[address] [place], [place] [address]Dr. Swathi Reis NEUT # 7.8 103/ul Critically high 1.4-6.5 [facility] Comment on above: Performed By: #### C BC ####[facility] Mnxpmlljbm476[address] [place], [place] [address]Dr. Swathi Reis Neutrophils/100 WBC (Bld) 75.9 % Critically high 43.0-75.0 [facility] Comment on above: Performed By: #### C BC ####[facility] Bqkhbozcvw028[address] [place], [place] [address]Dr. Swathi Reis Platelet mean volume (Bld) [Entitic vol] 10.7 fL Normal 9.5-13.5 [facility] Comment on above: Performed By: #### C BC ####[facility] Uhpkjtcffz51[address] [place], [place] [address]Dr. Swathi Reis PLT 257 103/ul Normal 150-450 [facility] Comment on above: Performed By: #### C BC ####[facility] Nhhtwdgjhk496[address] [place], [place] [address]Dr. Swathi Chato RBC 4.34 106/ul Normal 4.20-5.40 [facility] Comment on above: Performed By: #### C BC ####[facility] Nxxbtybtdy266[address] [place], [place] [address]Dr. Swathi Reis WBC 10.2 103/ul Normal 4.0-11.0 [facility] Comment on above: Performed By: #### C BC ####[facility] Qprnkvxsjv7120 [place] [address]Dr. Swathi Reis Covid-19 PCR (CVDTB)on 04-23 SARS-CoV-2 (COVID-19) RNA ÓSCAR+probe Ql (Unsp spec) Not detected Normal NOT DETECTED [facility] Comment on above: Result Comment: This test is not yet approved or cleared by the [place] FDA. When there are no FDA-approved or cleared tests available, and other criteria are met, FDA can make tests available under an emergency access mechanism called an Emergency Use Authorization (EUA). The EUA for this test is supported by the [place] of Health and Human Service's (HHS's) declaration [...] with SARS-CoV-2. Performed By: #### C VDTBH ####[facility] Fwbglpyffl9736 [place] [address]Dr. Swathi Reis PROF CHEM 8 (BAS METB)on Anion gap [Moles/Vol] 12.0 mmol/L Normal [facility] Comment on above: Performed By: #### B MP ####[facility] Zqpcyhscyf3010 [place] [phone] Swathi Chato Calcium [Mass/Vol] 9.7 mg/dL Normal 8.5-10.1 [facility] Comment on above: Performed By: #### B MP ####[facility] Tulnqreopz4291 [place] [phone] Swathi Reis Chloride [Moles/Vol] 102 mmol/L Normal 98-107 [facility] Comment on above: Performed By: #### B MP ####[facility] Rgbzgifbin8918 [place] [address]Dr. Swathi Reis CO2 [Moles/Vol] 31.8 mmol/L Normal 21.0-32.0 [facility] Comment on above: Performed By: #### B MP ####[facility] Oodxbagmgu[address] [place], [place] [address]Dr. Swathi Reis Creatinine [Mass/Vol] 1.22 mg/dL Critically high 0.55-1.02 [facility] Comment on above: Performed By: #### B MP ####[facility] Yrjbgcxohf[address] [place], [place] [address]Dr. Swathi Reis EGFR-AF MAURITANIAN 52 mL/min/1.73m2 Critically low >=60 [facility] Comment on above: Performed By: #### B MP ####[facility] Qqqtzshmzm[address] [place], [place] [address]Dr. Swathi Reis EGFR-NON AF MAURITANIAN 43 mL/min/1.73m2 Critically low >=60 [facility] Comment on above: Performed By: #### B MP ####[facility] Sncmnrspsd325[address] [place], [place] [address]Dr. Swathi Reis Glucose [Mass/Vol] 249 mg/dL Critically high 74-106 [facility] Comment on above: Performed By: #### B MP ####[facility] Bhxdpdkhzm37[address] [place], [place] [address]Dr. Swathi Reis Potassium [Moles/Vol] 3.8 mmol/L Normal 3.5-5.1 [facility] Comment on above: Performed By: #### B MP ####[facility] Tbrjsjnjqa7[address] [place], [place] [address]Dr. Swathi Reis Sodium [Moles/Vol] 142 mmol/L Normal 136-145 [facility] Comment on above: Performed By: #### B MP ####[facility] Rakvxsouam187[address] [place], [place] [address]Dr. Swathi Reis Urea nitrogen [Mass/Vol] 21.0 mg/dL Critically high 7.0-18.0 [facility] Comment on above: Performed By: #### B MP ####[facility] Vmhmnkjrss425[address] [place], [place] [address]Dr. Swathi Chato Urea nitrogen/Creatinine [Mass ratio] 17.2 mg/mg Normal [facility] Comment on above: Performed By: #### B MP ####[facility] Tsqhaahril670[address] [place], [place] [address]Dr. Swathi Chato CBC AUTO DIFFon 01-12-2022 BASO # 0.1 103/ul Normal 0.0-0.1 [facility] Comment on above: Performed By: #### C BC ####[facility] Ilncdnnthu2926[address] [place], [place] [address]Dr. Swathi Reis Basophils/100 WBC (Bld) 0.7 % Normal 0.2-2.0 [facility] Comment on above: Performed By: #### C BC ####[facility] Lpdjklmeuc495[address] [place], [place] [address]Dr. Swathi Chato EO # 0.3 103/ul Normal 0.0-0.7 [facility] Comment on above: Performed By: #### C BC ####[facility] Yuloptoomn510[address] [place], [place] [address]Dr. Inessatracy Reis Eosinophils/100 WBC (Bld) 2.9 % Normal 0.9-7.0 [facility] Comment on above: Performed By: #### C BC ####[facility] Phlruvhfjz818[address] [place], [place] [address]Dr. Swathi Chato Erythrocyte distribution width (RBC) [Ratio] 13.2 % Normal 11.0-15.0 [facility] Comment on above: Performed By: #### C BC ####[facility] Vgrqllhrxp727[address] [place], [place] [address]Dr. Swathi Reis Hematocrit (Bld) [Volume fraction] 35.9 % Critically low 36.0-48.0 [facility] Comment on above: Performed By: #### C BC ####[facility] Uwuoqbesmd8876 [place] [id number]. Swathi Reis Hemoglobin (Bld) [Mass/Vol] 11.6 g/dL Critically low 12.0-16.0 [facility] Comment on above: Performed By: #### C BC ####[facility] Biizwwzsgw9681 [place] [id number]. Swathi Reis IG # 0.03 10e3/ul Normal 0.00-0.03 [facility] Comment on above: Performed By: #### C BC ####[facility] Kxikjnxbil42[address] [place] [address]Dr. Swathi Reis IG % 0.4 % Normal 0.0-0.5 [facility] Comment on above: Performed By: #### C BC ####[facility] Drtsdpxoqj3935 [place] [address]Dr. Swathi Reis LYMPH # 1.5 103/ul Normal 1.2-3.8 [facility] Comment on above: Performed By: #### C BC ####[facility] Xofhlsjkvg2537[address] [place], [place] [address]Dr. Swathi Reis Lymphocytes/100 WBC (Bld) 17.6 % Critically low 20.5-60.0 [facility] Comment on above: Performed By: #### C BC ####[facility] Rkovvzcewo[address] [place] [address]Dr. Swathi Reis MANUAL DIFF REQ NO Normal [facility] Comment on above: Performed By: #### C BC ####[facility] Vlrhgjxokx4797 [place] [address]Dr. Swathi Reis MCH (RBC) [Entitic mass] 30.0 pg Normal 26.7-34.0 [facility] Comment on above: Performed By: #### C BC ####[facility] Qlavarsfex1700[address] [place], [place] [address]Dr. Swathi Reis MCHC (RBC) [Mass/Vol] 32.3 g/dL Normal 29.9-35.2 [facility] Comment on above: Performed By: #### C BC ####[facility] Ezjpzlcufj2647 [place] [phone]. Swathi Reis MCV (RBC) [Entitic vol] 92.8 fL Normal 81.0-99.0 [facility] Comment on above: Performed By: #### C BC ####[facility] Jvnzarvksy0175 [place] [id number]. Swathi Reis MONO # 1.1 103/ul Critically high 0.3-0.8 [facility] Comment on above: Performed By: #### C BC ####[facility] Hncqjjbbxl2495 [place] [address]Dr. Swathi Reis Monocytes/100 WBC (Bld) 12.3 % Critically high 1.7-12.0 [facility] Comment on above: Performed By: #### C BC ####[facility] Gzljmbnxii317[address] [place], [place] [address]Dr. Swathi Reis NEUT # 5.7 103/ul Normal 1.4-6.5 [facility] Comment on above: Performed By: #### C BC ####[facility] Hhqrkvljip438[address] [place], [place] [address]Dr. Swathi Reis Neutrophils/100 WBC (Bld) 66.1 % Normal 43.0-75.0 [facility] Comment on above: Performed By: #### C BC ####[facility] Iipxospslp7656 [place] [address]Dr. Swathi Reis Platelet mean volume (Bld) [Entitic vol] 10.9 fL Normal 9.5-13.5 [facility] Comment on above: Performed By: #### C BC ####[facility] Ljqgiezvby9760 [place] [phone]. Swathi Reis PLT 246 103/ul Normal 150-450 [facility] Comment on above: Performed By: #### C BC ####[facility] Fhvganhzsf5072 [place] [phone]. Swathi Reis RBC 3.87 106/ul Critically low 4.20-5.40 [facility] Comment on above: Performed By: #### C BC ####[facility] Tuoefzmadu9631 [place] [address]Dr. Swathi Reis WBC 8.6 103/ul Normal 4.0-11.0 [facility] Comment on above: Performed By: #### C BC ####[facility] Dzdtoonbuo7527[address] [place], [place] [address]Dr. Swathi Reis CRPon 01-12-2022 CRP [Mass/Vol] mg/L Normal <=1.0 [facility] Comment on above: Performed By: #### C MP, CRP ####[facility] Yigcrwfkyp517[address] [place], [place] [address]Dr. Swathi Reis POINT OF CARE GLUCOSEon 12-23 Glucose [Mass/Vol] 95 mg/dL Normal 74-106 [facility] Comment on above: Performed By: #### P OCGLUC ####[facility] Tvyfmcvgpt9201[address] [place], [place] [address]Dr. Swathi Reis PROF 14(COMP METB)on 022 Albumin [Mass/Vol] 2.9 g/dL Critically low 3.4-5.0 [facility] Comment on above: Performed By: #### C MP, CRP ####[facility] Ieehhrhmue686[address] [place], [place] [address]Dr. Swathi Reis Albumin/Globulin [Mass ratio] 0.8 {ratio} Normal [facility] Comment on above: Performed By: #### C MP, CRP ####[facility] Baqtqyqblt486[address] [place], [place] [address]Dr. Swathi Reis ALP [Catalytic activity/Vol] 91 U/L Normal 46-116 [facility] Comment on above: Performed By: #### C MP, CRP ####[facility] Qnlbweqeke735[address] [place], [place] [address]Dr. Swathi Reis ALT [Catalytic activity/Vol] 18 U/L Normal 14-59 [facility] Comment on above: Performed By: #### C MP, CRP ####[facility] Qgynrbqnos7317[address] [place], [place] [address]Dr. Swathi Reis Anion gap [Moles/Vol] 9.1 mmol/L Normal [facility] Comment on above: Performed By: #### C MP, CRP ####[facility] Utztozsazd6432 [place] [address]Dr. Swathi Reis AST [Catalytic activity/Vol] 17 U/L Normal 15-37 [facility] Comment on above: Performed By: #### C MP, CRP ####[facility] Twtwgtrmsr6407 [place] [address]Dr. Swathi Reis Bilirubin [Mass/Vol] 0.6 mg/dL Normal 0.2-1.3 [facility] Comment on above: Performed By: #### C MP, CRP ####[facility] Rhnkgtssjo1575 [place] [address]Dr. Swathi Reis Calcium [Mass/Vol] 8.6 mg/dL Normal 8.5-10.1 [facility] Comment on above: Performed By: #### C MP, CRP ####[facility] Wgsjpdhjjf619[address] [place], [place] [address]Dr. Swathi Reis Chloride [Moles/Vol] 104 mmol/L Normal 98-107 [facility] Comment on above: Performed By: #### C MP, CRP ####[facility] Xsiefswpus787[address] [place], [place] [address]Dr. Swathi Reis CO2 [Moles/Vol] 32.1 mmol/L Critically high 22.0-30.0 [facility] Comment on above: Performed By: #### C MP, CRP ####[facility] Smlrhomszs859[address] [place], [place] [address]Dr. Swathi Reis Creatinine [Mass/Vol] 0.96 mg/dL Normal 0.52-1.04 [facility] Comment on above: Performed By: #### C MP, CRP ####[facility] Trgqdbbrec000[address] [place], [place] [address]Dr. Swathi Reis EGFR-AF MAURITANIAN >60 Normal >=60 [facility] Comment on above: Performed By: #### C MP, CRP ####[facility] Ngneiihear4733[address] [place], [place] [address]Dr. Swathi Reis EGFR-NON AF MAURITANIAN 56 mL/min/1.73m2 Critically low >=60 [facility] Comment on above: Performed By: #### C MP, CRP ####[facility] Wplajsfick1840 [place] [address]Dr. Swathi Reis Globulin (S) [Mass/Vol] 3.5 g/dL Normal [facility] Comment on above: Performed By: #### C MP, CRP ####[facility] Aeyoxeobyo3654 [place] [address]Dr. Swathi Reis Glucose [Mass/Vol] 114 mg/dL Critically high 74-106 [facility] Comment on above: Performed By: #### C MP, CRP ####[facility] Cnnhuwyioa29029[address] [place], [place] [address]Dr. Swathi Reis Potassium [Moles/Vol] 3.2 mmol/L Critically low 3.4-5.0 [facility] Comment on above: Performed By: #### C MP, CRP ####[facility] Dbgluvfptw080[address] [place], [place] [address]Dr. Swathi Reis Protein [Mass/Vol] 6.4 g/dL Normal 6.1-8.2 [facility] Comment on above: Performed By: #### C MP, CRP ####[facility] Bsiifvtxiv353[address] [place], [place] [address]Dr. Swathi Chato Sodium [Moles/Vol] 142 mmol/L Normal 137-145 [facility] Comment on above: Performed By: #### C MP, CRP ####[facility] Ycsuyclmch2355[address] [place], [place] [address]Dr. Swathi Reis Urea nitrogen [Mass/Vol] 20.0 mg/dL Critically high 7.0-18.0 [facility] Comment on above: Performed By: #### C MP, CRP ####[facility] Xwgeszceyv211[address] [place], [place] [address]Dr. Swathi Chato Urea nitrogen/Creatinine [Mass ratio] 20.8 mg/mg Normal [facility] Comment on above: Performed By: #### C MP, CRP ####[facility] Vmthosunwv87[address] [place], [place] [address]Dr. Swathi Reis T3, TOTAL (TRIIODOTHYRONINE) on 01-12-2022 T3, TOTAL 79 ng/dL Normal 71-180 [facility] Comment on above: Performed By: #### T 3TOTAL ####[facility] Xaedigbigk2365 [place] [phone]. Swathi Reis CBC AUTO DIFFon 01-11-2022 BASO # 0.1 103/ul Normal 0.0-0.1 [facility] Comment on above: Performed By: #### C BC ####[facility] Aeuvglzhty[address] [place], [place] [address]Dr. Swathi Chato Basophils/100 WBC (Bld) 0.5 % Normal 0.2-2.0 [facility] Comment on above: Performed By: #### C BC ####[facility] Nsbujopiqj545[address] [place], [place] [address]Dr. Inessatracy Chato EO # 0.1 103/ul Normal 0.0-0.7 [facility] Comment on above: Performed By: #### C BC ####[facility] Vcnrrfzwaa64[address] [place], [place] [address]Dr. Swathi Reis Eosinophils/100 WBC (Bld) 1.1 % Normal 0.9-7.0 [facility] Comment on above: Performed By: #### C BC ####[facility] Nxubzxrkae67[address] [place], [place] [address]Dr. Swathi Reis Erythrocyte distribution width (RBC) [Ratio] 13.1 % Normal 11.0-15.0 [facility] Comment on above: Performed By: #### C BC ####[facility] Frvjbcfsdx[address] [place], [place] [address]Dr. Swathi Reis Hematocrit (Bld) [Volume fraction] 39.1 % Normal 36.0-48.0 [facility] Comment on above: Performed By: #### C BC ####[facility] Nindxznmfw567[address] [place], [place] [address]Dr. Swathi Reis Hemoglobin (Bld) [Mass/Vol] 12.7 g/dL Normal 12.0-16.0 [facility] Comment on above: Performed By: #### C BC ####[facility] Iateanetsn9957 [place] [phone]. Swathi Reis IG # 0.04 10e3/ul Critically high 0.00-0.03 [facility] Comment on above: Performed By: #### C BC ####[facility] Ayrmpwiodi9605 [place] [phone]. Swathi Reis IG % 0.4 % Normal 0.0-0.5 [facility] Comment on above: Performed By: #### C BC ####[facility] Wswuhcdpiq4321 [place] [address]Dr. Swathi Reis LYMPH # 1.4 103/ul Normal 1.2-3.8 [facility] Comment on above: Performed By: #### C BC ####[facility] Fpxewizydt2735 [place] [address]Dr. Swathi Reis Lymphocytes/100 WBC (Bld) 12.4 % Critically low 20.5-60.0 [facility] Comment on above: Performed By: #### C BC ####[facility] Aizzibicif8238 [place] [address]Dr. Swathi Reis MANUAL DIFF REQ NO Normal [facility] Comment on above: Performed By: #### C BC ####[facility] Gtoaikbbiv7844 [place] [address]Dr. Swathi Reis MCH (RBC) [Entitic mass] 30.0 pg Normal 26.7-34.0 [facility] Comment on above: Performed By: #### C BC ####[facility] Doowrksbev0481 [place] [address]Dr. Swathi Reis MCHC (RBC) [Mass/Vol] 32.5 g/dL Normal 29.9-35.2 [facility] Comment on above: Performed By: #### C BC ####[facility] Fjnabltvbp8978 [place] [address]Dr. Swathi Reis MCV (RBC) [Entitic vol] 92.4 fL Normal 81.0-99.0 [facility] Comment on above: Performed By: #### C BC ####[facility] Ayjkikkryf1256 [place] [id number]. Swathi Reis MONO # 1.1 103/ul Critically high 0.3-0.8 [facility] Comment on above: Performed By: #### C BC ####[facility] Uglhhcidsj1778 [place] [id number]. Swathi Reis Monocytes/100 WBC (Bld) 10.1 % Normal 1.7-12.0 [facility] Comment on above: Performed By: #### C BC ####[facility] Besinohwsy9915 [place] [id number]. Swathi Reis NEUT # 8.3 103/ul Critically high 1.4-6.5 [facility] Comment on above: Performed By: #### C BC ####[facility] Lhwxmjeelo4669 [place] [address]Dr. Swatih Reis Neutrophils/100 WBC (Bld) 75.5 % Critically high 43.0-75.0 [facility] Comment on above: Performed By: #### C BC ####[facility] Zniwwzmigy4307 [place] [phone]. Swathi Reis Platelet mean volume (Bld) [Entitic vol] 11.3 fL Normal 9.5-13.5 [facility] Comment on above: Performed By: #### C BC ####[facility] Dpbjhqoylj4441 [place] [phone]. Swathi Reis PLT 292 103/ul Normal 150-450 [facility] Comment on above: Performed By: #### C BC ####[facility] Kevoozqznr8562 [place] [phone]. Swathi Reis RBC 4.23 106/ul Normal 4.20-5.40 [facility] Comment on above: Performed By: #### C BC ####[facility] Wxqfskolbd5670 [place] [address]Dr. Swathi Reis WBC 11.0 103/ul Normal 4.0-11.0 [facility] Comment on above: Performed By: #### C BC ####[facility] Dsxcmzcfcs8564 [place] [phone]. Swathi Reis CT HEAD WO CONon 01-11-2022 CT HEAD WO CON Normal [facility] CULTURE URINEon 01-11-2022 CULTURE URINE Culture Observations : LIGHT GROWTH OF MIXED GENITAL ELEONORA. NO POTENTIAL PATHOGENS SEEN. Normal [facility] Comment on above: Performed By: #### U RCX ####[facility] Loypfkiylv9491 [place] [phone]. Swathi Reis Covid-19 PCR (CVDTB)on 12-23 SARS-CoV-2 (COVID-19) RNA ÓSCAR+probe Ql (Unsp spec) Not detected Normal NOT DETECTED [facility] Comment on above: Result Comment: When [...] for this test is supported by the [employer] and [employer] Service's declaration that [...] be used). Performed By: #### C VDTBH ####[facility] Bfnwrnjuyr6321 [place] [phone]. Swathi Reis EEGon 01-11-2022 EEG Normal [facility] ER URINE PROFILEon Bilirubin Ql (U) Negative Normal NEGATIVE [facility] Comment on above: Performed By: #### E RUR ####[facility] Klamixuhvy3234 [place] [phone]. Swathi Reis Clarity (U) CLEAR Normal CLEAR [facility] Comment on above: Performed By: #### E RUR ####[facility] Drtcwwezxk201[address] [place], [place] [address]Dr. Swathi Reis Color (U) LT. YELLOW Normal YELLOW [facility] Comment on above: Performed By: #### E RUR ####[facility] Ukplrlkjyk78[address] [place], [place] [address]Dr. Swathi Reis ERUAHD A micrscopic examina tion will be performed if indicated. Normal [facility] Comment on above: Performed By: #### E RUR ####[facility] Xuaukbdxlg177[address] [place], [place] [address]Dr. Swathi Reis Glucose Ql (U) Negative Normal NEGATIVE [facility] Comment on above: Performed By: #### E RUR ####[facility] Hqhxumtket939[address] [place], [place] [address]Dr. Swathi Reis Hemoglobin Ql (U) Negative Normal NEGATIVE [facility] Comment on above: Performed By: #### E RUR ####[facility] Fthxwahesp495[address] [place], [place] [address]Dr. Swathi Reis Ketones Ql (U) Negative Normal NEGATIVE [facility] Comment on above: Performed By: #### E RUR ####[facility] Hkrafyyejv20[address] [place], [place] [address]Dr. Swathi Reis LEUKOCYTES Negative Normal NEGATIVE [facility] Comment on above: Performed By: #### E RUR ####[facility] Xotgmbkmwc325[address] [place], [place] [address]Dr. Swathi Reis Nitrite Ql (U) Negative Normal NEGATIVE [facility] Comment on above: Performed By: #### E RUR ####[facility] Rbglkyoezq7930[address] [place], [place] [address]Dr. Swathi Reis pH (U) 6.0 [pH] Normal 5-9 [facility] Comment on above: Performed By: #### E RUR ####[facility] Ckluodwnyz201[address] [place], [place] [address]Dr. Swathi Reis SPEC GRAVITY 1.010 Normal 1.005-<=1.0 25 [facility] Comment on above: Performed By: #### E RUR ####[facility] Cfqphtuwgf2281 [place] [address]Dr. Inessatracy Chato UA PROTEIN Negative Normal NEGATIVE/ TRACE [facility] Comment on above: Performed By: #### E RUR ####[facility] Ekwezbrzxs2915 [place] [address]Dr. Swathi Reis UR MICRO IND NOT INDICATED Normal [facility] Comment on above: Performed By: #### E RUR ####[facility] Dpzyuqmrki6817 [place] [address]Dr. Inessatracy Chato Urobilinogen Qn (U) 0.2 {Sánchez'U}/dL Normal 0.2 - 1. 0 [facility] Comment on above: Performed By: #### E RUR ####[facility] Skpuqjbilq306[address] [place], [place] [address]Dr. Swathi Reis LACTATE/LACTIC ACIDon 2021 Lactate [Moles/Vol] 0.9 mmol/L Normal 0.7-2.0 [facility] Comment on above: Performed By: #### L ACT ####[facility] Owsxvqqvvi3098 [place] [address]Dr. Swathi Reis Lactate [Moles/Vol] 0.9 mmol/L Normal 0.7-2.0 [facility] Comment on above: Performed By: #### L ACT ####[facility] Wovfhzscwq30[address] [place], [place] [address]Dr. Swathi Reis POINT OF CARE GLUCOSEon 12-23 Glucose [Mass/Vol] 175 mg/dL Critically high 74-106 [facility] Comment on above: Performed By: #### P OCGLUC ####[facility] Qhnfpdocus1741 [place] [address]Dr. Swathi Reis Glucose [Mass/Vol] 116 mg/dL Critically high 74-106 [facility] Comment on above: Performed By: #### P OCGLUC ####[facility] Reikxtygnv1685 [place] [address]Dr. Swathi Reis PROF 14(COMP METB)on 022 Albumin [Mass/Vol] 3.3 g/dL Critically low 3.4-5.0 [facility] Comment on above: Performed By: #### Barbara NUGENT, CMP ####[facility] Fuauybsbti1743 [place] [address]Dr. Swathi Reis Albumin/Globulin [Mass ratio] 0.8 {ratio} Normal [facility] Comment on above: Performed By: #### Barbara NUGENT, CMP ####[facility] Xzthrdmcgq2690 [place] [address]Dr. Swathi Reis ALP [Catalytic activity/Vol] 110 U/L Normal 46-116 [facility] Comment on above: Performed By: #### Barbara NUGENT, CMP ####[facility] Togojjovqu2385 [place] [address]Dr. Swathi Reis ALT [Catalytic activity/Vol] 20 U/L Normal 14-59 [facility] Comment on above: Performed By: #### Barbara NUGENT, CMP ####[facility] Ivpzapsyhe3983 [place] [address]Dr. Swathi Reis Anion gap [Moles/Vol] 15.9 mmol/L Normal [facility] Comment on above: Performed By: #### Barbara NUGENT, CMP ####[facility] Mprwymddbz[address] [place], [place] [address]Dr. Swathi Reis AST [Catalytic activity/Vol] 24 U/L Normal 15-37 [facility] Comment on above: Performed By: #### Barbara NUGENT, CMP ####[facility] Chyaeucute[address] [place] [address]Dr. Swathi Reis Bilirubin [Mass/Vol] 0.5 mg/dL Normal 0.2-1.3 [facility] Comment on above: Performed By: #### Barbara NUGENT, CMP ####[facility] Owmklkqbap2474 [place] [address]Dr. Swathi Reis Calcium [Mass/Vol] 9.5 mg/dL Normal 8.5-10.1 [facility] Comment on above: Performed By: #### Barbara NUGENT, CMP ####[facility] Pdyooenilf5231 [place] [address]Dr. Swathi Reis Chloride [Moles/Vol] 100 mmol/L Normal 98-107 [facility] Comment on above: Performed By: #### H RAFFI, CMP ####[facility] Nsqdowhjan0320 [place] [address]Dr. Swathi Reis CO2 [Moles/Vol] 27.8 mmol/L Normal 22.0-30.0 [facility] Comment on above: Performed By: #### H RAFFI, CMP ####[facility] Xhjwfcdenr0018 [place] [address]Dr. Swathi Reis Creatinine [Mass/Vol] 1.21 mg/dL Critically high 0.52-1.04 [facility] Comment on above: Performed By: #### H RAFFI, CMP ####[facility] Ankchxbptk294[address] [place], [place] [address]Dr. Swathi Reis EGFR-AF MAURITANIAN 52 mL/min/1.73m2 Critically low >=60 [facility] Comment on above: Performed By: #### H RAFFI, CMP ####[facility] Wotftsvocl5821 [place] [address]Dr. Swathi Reis EGFR-NON AF MAURITANIAN 43 mL/min/1.73m2 Critically low >=60 [facility] Comment on above: Performed By: #### H RAFFI, CMP ####[facility] Jyjtzjwlgg[address] [place], [place] [address]Dr. Swathi Reis Globulin (S) [Mass/Vol] 4.1 g/dL Normal [facility] Comment on above: Performed By: #### H RAFFI, CMP ####[facility] Xqbtrqsumj6689 [place] [address]Dr. Swathi Reis Glucose [Mass/Vol] 195 mg/dL Critically high 74-106 [facility] Comment on above: Performed By: #### H RAFFI, CMP ####[facility] Amshvwnkdp994[address] [place], [place] [address]Dr. Swathi Reis Potassium [Moles/Vol] 3.7 mmol/L Normal 3.4-5.0 [facility] Comment on above: Performed By: #### H RAFFI, CMP ####[facility] Yxqhnesxzg2234 [place] [id number]. Swathi Reis Protein [Mass/Vol] 7.4 g/dL Normal 6.1-8.2 [facility] Comment on above: Performed By: #### H STROPN, CMP ####[facility] Xnnasfaifq5861 [place] [address]Dr. Swathi Reis Sodium [Moles/Vol] 140 mmol/L Normal 137-145 [facility] Comment on above: Performed By: #### H STROPN, CMP ####[facility] Awytxrmojx7227 [place] [address]Dr. Swathi Reis Urea nitrogen [Mass/Vol] 22.0 mg/dL Critically high 7.0-18.0 [facility] Comment on above: Performed By: #### H STROPN, CMP ####[facility] Khnezhdoqv9119 [place] [address]Dr. Swathi Reis Urea nitrogen/Creatinine [Mass ratio] 18.2 mg/mg Normal [facility] Comment on above: Performed By: #### H STROPN, CMP ####[facility] Oluctadbfu5630 [place] [address]Dr. Swathi Reis T4on 01-11-2022 T4 [Mass/Vol] 9.10 ug/dL Normal 5.53-11.00 [facility] Comment on above: Performed By: #### T SH, T4 ####[facility] Plhgderchn3798 [place] [address]Dr. Swathi Reis TROPONIN, HIGH SENSITIVITYon 01-11-2022 HSTROP 13.7 pg/mL Normal 4.0-35.5 [facility] Comment on above: Result Comment: CUT- OFF POINTS HAVE BEEN ESTABLISHED BASED ON THE FOURTH UNIVERSAL DEFINITIONS OF MYOCARDIALINFARCTION. THE UPPER REFERENCE LIMIT (URL) OF TROPONIN, DEFINED THE 99TH PERCENTILE OFcTnI DISTRIBUTION IN A REFERENCE POPULATION, HAS BEEN CONFIRMED THE DECISION THRESHOLDFOR NM DIAGNOSIS. Performed By: #### H STROPN, CMP ####[facility] Nmcuyhwspr[address] [place], [place] [address]Dr. Swathi Reis TSHon 01-11-2022 TSH 2.618 uIU/mL Normal 0.470-4.680 [facility] Comment on above: Performed By: #### T SH, T4 ####[facility] Susprsuw[address] [place], [place] [id number] Swathi Resi TSH RANGE SEE BELOW Normal [facility] Comment on above: Result Comment: <0.3 4 UIU/ml HYPERTHYROID 0.34-5.60 UIU/ml EUTHYROID >5.60 UIU/ml HYPOTHYROID Performed By: #### T SH, T4 ####[facility] Clnfaykwqv[address] [place], [place] [id number] Swathi Reis CBC AUTO DIFFon 01-09-2022 BASO # 0.1 103/ul Normal 0.0-0.1 [facility] Comment on above: Performed By: #### C BC ####[facility] Lekaldftpk[address] [place], [place] [address]DrOtto Swathi Chato Basophils/100 WBC (Bld) 0.6 % Normal 0.2-2.0 [facility] Comment on above: Performed By: #### C BC ####[facility] Jkptvazaue[address] [place], [place] [address]DrOtto Swathi Reis EO # 0.2 103/ul Normal 0.0-0.7 [facility] Comment on above: Performed By: #### C BC ####[facility] Hfqwspfbdm[address] [place], [place] [address]DrOtto Swathi Reis Eosinophils/100 WBC (Bld) 2.7 % Normal 0.9-7.0 [facility] Comment on above: Performed By: #### C BC ####[facility] Jhxfnvuduk[address] [place], [place] [address]DrOtto Swathi Reis Erythrocyte distribution width (RBC) [Ratio] 13.2 % Normal 11.0-15.0 [facility] Comment on above: Performed By: #### C BC ####[facility] Kcqrgxgyqc[address] [place], [place] [address]DrOtto Swathi Reis Hematocrit (Bld) [Volume fraction] 39.7 % Normal 36.0-48.0 [facility] Comment on above: Performed By: #### C BC ####[facility] [address]uxgpiuc[address] [place] [address]Dr. Swathi Reis Hemoglobin (Bld) [Mass/Vol] 12.7 g/dL Normal 12.0-16.0 [facility] Comment on above: Performed By: #### C BC ####[facility] Lanbactzhe5[address] [place] [address]Dr. Swathi Reis IG # 0.04 10e3/ul Critically high 0.00-0.03 [facility] Comment on above: Performed By: #### C BC ####[facility] Vleqmlufrs2549 [place] [address]Dr. Swathi Chato IG % 0.4 % Normal 0.0-0.5 [facility] Comment on above: Performed By: #### C BC ####[facility] Vzyeueatnq7[address] [place], [place] [address]Dr. Swathi Chato LYMPH # 1.4 103/ul Normal 1.2-3.8 [facility] Comment on above: Performed By: #### C BC ####[facility] Njpzpjqtnh6641 [place] [address]Dr. Swathi Chato Lymphocytes/100 WBC (Bld) 15.9 % Critically low 20.5-60.0 [facility] Comment on above: Performed By: #### C BC ####[facility] Xrrffuptvc[address]65 [place] [address]Dr. Inessatracy Reis MANUAL DIFF REQ NO Normal [facility] Comment on above: Performed By: #### C BC ####[facility] Sfvzanqyqw6243 [place] [id number]. Swathi Chato MCH (RBC) [Entitic mass] 30.0 pg Normal 26.7-34.0 [facility] Comment on above: Performed By: #### C BC ####[facility] Uussxxvdee7179 [place] [id number]. Inessatracy Reis MCHC (RBC) [Mass/Vol] 32.0 g/dL Normal 29.9-35.2 [facility] Comment on above: Performed By: #### C BC ####[facility] Ysaebhqjej9414 [place] [id number]. Swathi Reis MCV (RBC) [Entitic vol] 93.9 fL Normal 81.0-99.0 [facility] Comment on above: Performed By: #### C BC ####[facility] Sqxlhdrtdc0385 [place] [id number] Swathi Chato MONO # 0.9 103/ul Critically high 0.3-0.8 [facility] Comment on above: Performed By: #### C BC ####[facility] Nyrmxsibtl0554 [place] [address]Dr. Inessatracy Reis Monocytes/100 WBC (Bld) 9.7 % Normal 1.7-12.0 [facility] Comment on above: Performed By: #### C BC ####[facility] Tbxcsyvcpt[address] [place], [place] [address]Dr. Swathi Reis NEUT # 6.3 103/ul Normal 1.4-6.5 [facility] Comment on above: Performed By: #### C BC ####[facility] Lukceffknu18[address] [place], [place] [address]Dr. Swathi Chato Neutrophils/100 WBC (Bld) 70.7 % Normal 43.0-75.0 [facility] Comment on above: Performed By: #### C BC ####[facility] Badwiulcum[address] [place], [place] [address]Dr. Swathi Chato Platelet mean volume (Bld) [Entitic vol] 10.7 fL Normal 9.5-13.5 [facility] Comment on above: Performed By: #### C BC ####[facility] [address]rvo[address] [place], [place] [address]Dr. Swathi Reis PLT 269 103/ul Normal 150-450 [facility] Comment on above: Performed By: #### C BC ####[facility] Pkyjpogcgu1413 [place] [id number]. Swathi Reis RBC 4.23 106/ul Normal 4.20-5.40 [facility] Comment on above: Performed By: #### C BC ####[facility] Qumgcgoftc4150 [place] [address]Dr. Swathi Reis WBC 8.9 103/ul Normal 4.0-11.0 [facility] Comment on above: Performed By: #### C BC ####[facility] Hllzsrojqy2614 [place] [address]Dr. Swathi Reis FREE T3on 01-09-2022 FREE T3 2.19 pg/mlL Critically low 2.77-5.27 [facility] Comment on above: Performed By: #### T SH, T4, FT3, LIPID, CMP ####[facility] Hthbbtopae5[address] [place] [address]Dr. wSathi Reis GLYCOHEMOGLOBIN A1Con 2021 ADA RECOMMENDATION ADA THERAPEUTIC TARG ET 6.0 - 7.0 ACTION SUGGESTED > 7.0 Normal [facility] Comment on above: Performed By: #### A 1C ####[facility] Zrvrqrvoae0829 [place] [address]Dr. Swathi Reis Glucose [Mass/Vol] 137 mg/dL Normal [facility] Comment on above: Performed By: #### A 1C ####[facility] Xyhkockkph1832 [place] [address]Dr. Swathi Reis HbA1c (Bld) [Mass fraction] 6.4 % Critically high <=6.0 [facility] Comment on above: Performed By: #### A 1C ####[facility] Qeiztosuct1494 [place] [address]Dr. Swathi Reis LIPID PROFILEon 01-09-2022 CHOL-HDL RATIO NORM SEE BELOW Normal [facility] Comment on above: Result Comment: 3.3 - 4.4 LOW RISK 4.4 - 7.1 AVERAGE RISK 7.1 - 11.0 MODERATE RISK >11.0 HIGH RISK Performed By: #### T SH, T4, FT3, LIPID, CMP ####[facility] Rpbspvotia5122 [place] [address]Dr. Swathi Reis Cholesterol [Mass/Vol] 238 mg/dL Critically high <=200 [facility] Comment on above: Performed By: #### T SH, T4, FT3, LIPID, CMP ####[facility] Jfbbaeeuwd2803 [place] [address]Dr. Swathi Reis Cholesterol in HDL [Mass/Vol] 95 mg/dL Critically high 40-60 [facility] Comment on above: Performed By: #### T SH, T4, FT3, LIPID, CMP ####[facility] Iuoekgvqml3277 [place] [address]Dr. Swathi Reis Cholesterol in LDL [Mass/Vol] 121.0 mg/dL Normal [facility] Comment on above: Performed By: #### T SH, T4, FT3, LIPID, CMP ####[facility] Yafchzssui[address] [place], [place] [address]Dr. Swathi Reis Cholesterol.total/Ch olesterol in HDL [Mass ratio] 2.5 {ratio} Normal [facility] Comment on above: Performed By: #### T SH, T4, FT3, LIPID, CMP ####[facility] Bclljunqpb5077 [place] [address]Dr. Swathi Reis HDL NORMAL > or = 60 mg/dl - LO W CARDIOVASCULAR RISK <40 mg/dl - HIGH CARDIOVASCULAR RISK Normal [facility] Comment on above: Performed By: #### T SH, T4, FT3, LIPID, CMP ####[facility] Sauecfuvwo36[address] [place] [address]Dr. Swathi Reis LDL CALC NORMAL SEE BELOW Normal [facility] Comment on above: Result Comment: <100 mg/dl OPTIMAL 100 - 129 mg/dl NEAR OR ABOVE OPTIMAL 130 - 159 mg/dl BORDERLINE HIGH 160 - 189 mg/dl HIGH >190 mg/dl VERY HIGH Performed By: #### T SH, T4, FT3, LIPID, CMP ####[facility] Stegsyewwx[address] [place] [address]Dr. Swathi Reis Triglyceride [Mass/Vol] 110 mg/dL Normal <=150 [facility] Comment on above: Performed By: #### T SH, T4, FT3, LIPID, CMP ####[facility] Zwkenlyjyq8685 [place] [address]Dr. Swathi Reis VLDL CALC 22.0 mg/dL Normal [facility] Comment on above: Performed By: #### T SH, T4, FT3, LIPID, CMP ####[facility] Mwhfahcbkh42[address] [place] [address]Dr. Swathi Reis PROF 14(COMP METB)on 022 Albumin [Mass/Vol] 3.5 g/dL Normal 3.4-5.0 [facility] Comment on above: Performed By: #### T SH, T4, FT3, LIPID, CMP ####[facility] Glbinwyxyz2272 [place] [address]Dr. Swathi Reis Albumin/Globulin [Mass ratio] 0.9 {ratio} Normal [facility] Comment on above: Performed By: #### T SH, T4, FT3, LIPID, CMP ####[facility] Sushgfwama[address] [place], [place] [address]Dr. Swathi Reis ALP [Catalytic activity/Vol] 112 U/L Normal 46-116 [facility] Comment on above: Performed By: #### T SH, T4, FT3, LIPID, CMP ####[facility] Lychuyysmf[address] [place], [place] [address]Dr. Swathi Reis ALT [Catalytic activity/Vol] 14 U/L Normal 14-59 [facility] Comment on above: Performed By: #### T SH, T4, FT3, LIPID, CMP ####[facility] Kbukrspgri8533 [place] [address]Dr. Swathi Reis Anion gap [Moles/Vol] 10.4 mmol/L Normal [facility] Comment on above: Performed By: #### T SH, T4, FT3, LIPID, CMP ####[facility] Wwweuucnet239[address] [place], [place] [address]Dr. Swathi Reis AST [Catalytic activity/Vol] 18 U/L Normal 15-37 [facility] Comment on above: Performed By: #### T SH, T4, FT3, LIPID, CMP ####[facility] Pgoaezbnpg812[address] [place], [place] [address]Dr. Swathi Reis Bilirubin [Mass/Vol] 0.6 mg/dL Normal 0.2-1.3 [facility] Comment on above: Performed By: #### T SH, T4, FT3, LIPID, CMP ####[facility] Tuiupdgkyz4743 [place] [address]Dr. Swathi Reis Calcium [Mass/Vol] 9.4 mg/dL Normal 8.5-10.1 [facility] Comment on above: Performed By: #### T SH, T4, FT3, LIPID, CMP ####[facility] Dtqclmahcz[address] [place], [place] [address]Dr. Swathi Reis Chloride [Moles/Vol] 101 mmol/L Normal 98-107 [facility] Comment on above: Performed By: #### T SH, T4, FT3, LIPID, CMP ####[facility] Rxahsmlalt78[address] [place], [place] [address]Dr. Swathi Reis CO2 [Moles/Vol] 33.2 mmol/L Critically high 22.0-30.0 [facility] Comment on above: Performed By: #### T SH, T4, FT3, LIPID, CMP ####[facility] Vlhxpnecup9[address] [place], [place] [address]Dr. Swathi Reis Creatinine [Mass/Vol] 1.13 mg/dL Critically high 0.52-1.04 [facility] Comment on above: Performed By: #### T SH, T4, FT3, LIPID, CMP ####[facility] Ufrydilnqz[address] [place], [place] [address]Dr. Swathi Reis EGFR-AF MAURITANIAN 57 mL/min/1.73m2 Critically low >=60 [facility] Comment on above: Performed By: #### T SH, T4, FT3, LIPID, CMP ####[facility] Zloeqircdj157[address] [place], [place] [address]Dr. Swathi Reis EGFR-NON AF MAURITANIAN 47 mL/min/1.73m2 Critically low >=60 [facility] Comment on above: Performed By: #### T SH, T4, FT3, LIPID, CMP ####[facility] Giayfdwpbt832[address] [place], [place] [address]Dr. Swathi Reis Globulin (S) [Mass/Vol] 4.1 g/dL Normal [facility] Comment on above: Performed By: #### T SH, T4, FT3, LIPID, CMP ####[facility] Cxryweljvx3458 [place] [address]Dr. Swathi Reis Glucose [Mass/Vol] 144 mg/dL Critically high 74-106 [facility] Comment on above: Performed By: #### T SH, T4, FT3, LIPID, CMP ####[facility] Sizwawzaua[address] [place] [address]Dr. Swathi Reis Potassium [Moles/Vol] 3.6 mmol/L Normal 3.4-5.0 [facility] Comment on above: Performed By: #### T SH, T4, FT3, LIPID, CMP ####[facility] Edmceppnzv9[address] [place], [place] [address]Dr. Swathi Reis Protein [Mass/Vol] 7.6 g/dL Normal 6.1-8.2 [facility] Comment on above: Performed By: #### T SH, T4, FT3, LIPID, CMP ####[facility] Infugkuyjq[address] [place], [place] [address]Dr. Swathi Reis Sodium [Moles/Vol] 141 mmol/L Normal 137-145 [facility] Comment on above: Performed By: #### T SH, T4, FT3, LIPID, CMP ####[facility] Uglyszuglu[address] [place] [address]Dr. Swathi Reis Urea nitrogen [Mass/Vol] 22.0 mg/dL Critically high 7.0-18.0 [facility] Comment on above: Performed By: #### T SH, T4, FT3, LIPID, CMP ####[facility] Oakmdgipmn12[address] [place], [place] [address]Dr. Swathi Reis Urea nitrogen/Creatinine [Mass ratio] 19.5 mg/mg Normal [facility] Comment on above: Performed By: #### T SH, T4, FT3, LIPID, CMP ####[facility] Epomiffvyz77[address] [place], [place] [address]Dr. Swathi Reis T4on 01-09-2022 T4 [Mass/Vol] 8.80 ug/dL Normal 5.53-11.00 [facility] Comment on above: Performed By: #### T SH, T4, FT3, LIPID, CMP ####[facility] Qyxbgezrqp3726 [place] [id number]. Swathi Reis TSHon 01-09-2022 TSH 3.176 uIU/mL Normal 0.470-4.680 [facility] Comment on above: Performed By: #### T SH, T4, FT3, LIPID, CMP ####[facility] Ccapsauvhg[address] [place] [address]Dr. Swathi Reis TSH RANGE SEE BELOW Normal [facility] Comment on above: Result Comment: <0.3 4 UIU/ml HYPERTHYROID 0.34-5.60 UIU/ml EUTHYROID >5.60 UIU/ml HYPOTHYROID Performed By: #### T SH, T4, FT3, LIPID, CMP ####[facility] Wjmmirsafo5960 [place] [id number]. Swathi Reis VITAMIN D 25 OHon 01-09-2022 VIT D 25-OH 64.4 ng/mL Normal [facility] Comment on above: Performed By: #### V ITAD ####[facility] Ltmdakfpxc0091 [place] [id number]. Swathi Reis VIT D RANGES SEE BELOW Normal [facility] Comment on above: Result Comment: <20 ng/mL Vit D deficient 20 - <30 ng/mL Vit D insufficient 30 - 100 ng/mL Vit D sufficient >100 ng/mL Potential Toxicity Performed By: #### V ITAD ####[facility] Umdykwjbsw3830 [place] [id number]. Swathi Reis MG MAMM DIAGNOSTIC 3D GISELE CA Don 01-05-2022 MG MAMM DIAGNOSTIC 3D GISELE CAD Normal [facility] CT head/brain wo conon 12-27 CT head/brain wo [facility] Main [address] [address] [address] Scan Report Signed Patient: Andrew Barros MR#: [id number] : 1945 Acct:[id number] Age/Sex: 76 / F ADM Date: 12/27/21 Loc: CT Room: Type: [facility] Attending Dr: Brayden Hernandez MD Ordering Provider: [...] Cameron Jr., M.D.12/27/2021 1:17 PM Dictation Location: [place] [address] Transcribed By: [facility] 12/27/21 1317 Dictated By: Tex Cameron Jr, MD 12/27/21 131 Signed By: 12/27/21 131 [facility] FRESH FROZ PLASMAon 11-24-19 FRESH FROZ PLASMA Normal [facility] Comment on above: Performed By: #### F FP ####[place] [address] [place] [address]DrOtto Swathi Reis CT head/brain wo conon 11-17 CT head/brain wo con [facility] Main [place] [address] [place] [address] CT Scan Report Signed Patient: Andrew Barros MR#: [id number] : 1945 Acct:[id number] Age/Sex: 76 / F ADM Date: 11/17/21 Loc: CT Room: Type: [facility] Attending Dr: Brayden Hernandez MD Ordering Provider: [...] Henny Mckeon M.D.11/17/2021 1:35 PM Dictation Location: [place] [address] Transcribed By: SOLOMON 11/17/21 133 Dictated By: Henny Mckeon MD 11/17/21 133 Signed By: 11/17/21 133 [facility] Basic Metabolic Panelon 10-24 Calcium [Mass/Vol] 8.9 mg/dL Normal 8.2-10.2 [facility] Comment on above: Performed By: #### P T #### [facility] [address] Chloride [Moles/Vol] 94 mmol/L Low 95-114 [facility] Comment on above: Performed By: #### P T #### [facility] [address] CO2 [Moles/Vol] 22.6 mmol/L Normal 22.0-30.0 [facility] Comment on above: Performed By: #### P T #### [facility] [address] Creatinine [Mass/Vol] 1.38 mg/dL High 0.44-1.03 [facility] Comment on above: Performed By: #### P T #### [address] Creatinine Clr Calc Pharmacy 29.48 [facility] Comment on above: Result Comment: PERF ORMED BY: [place] [address] PATHOLOGIST PUBLIC HE[employer] REGISTRAR ADRIAN ROBERTSON M.D. Performed By: #### P T #### [address] Estimated GFR ( [place] 45 [facility] Comment on above: Result Comment: GFR estimated reference range: According to KDOQI guidelines, <60 ml/min/1.73m2 is sufficient to diagnose a patient with chronic kidney disease. Performed By: #### P T #### [address] Estimated GFR (Non- Am 37 [facility] Comment on above: Performed By: #### P T #### [address] Glucose [Mass/Vol] 297 mg/dL High 70-100 [facility] Comment on above: Result Comment: [place] Glucose Reference Range is dependent on time and content of last meal. Glucose of more than 200 mg/dL in a nonstressed, ambulatory subject supports the diagnosis of Diabetes Mellitus. ADA recommended reference range Performed By: #### P T #### [facility] [address] [place] [id number] [place] Potassium [Moles/Vol] 3.7 mmol/L Normal 3.5-5.1 [facility] Comment on above: Performed By: #### P T #### [facility] [address] [place] [id number] [place] Sodium [Moles/Vol] 132 mmol/L Low 136-146 [facility] Comment on above: Performed By: #### P T #### [facility] [address] [place] [id number] [place] Urea nitrogen [Mass/Vol] 19 mg/dL Normal 9-23 [facility] Comment on above: Performed By: #### P T #### [facility] [address] [place] [address] [place] Creatinine and Glomerular fi ltration rate.predicted panel (S/P/Bld)Ordered By: Shaka Echavarria on 11-11-2021 Creatinine [Mass/Vol] 1.38 mg/dL 0.44-1.03 [facility] Estimated glomerular filtrat ion rate (GFR) non- AmericanOrdered By: Shaka Echavarria on 11-11-2021 GFR/1.73 sq M.predicted among non-blacks MDRD (S/P/Bld) [Vol rate/Area] 37 mL/Min [facility] Glucose Glucometer (BldC) [M ass/Vol]Ordered By: Shaka Echavarria on 11-11-2021 Glucose [Mass/Vol] 233 mg/dL [facility] Comment on above: Random Glucose Refer ence Range is dependent on time and content of last meal. Glucose of more than 200 mg/dL in a nonstressed, ambulatory subject supports the diagnosis of Diabetes Mellitus. Glucose Poct Glucometerson 0 11-11-2021 Commemt1 Glu2: Cleaned Meter Normal [facility] Comment on above: Result Comment: PERF ORMED BY: [facility] [address] [facility] [place] [id number] PATHOLOGIST PUBLIC HEALTH REGISTRAR ADRIAN ROBERTSON M.D. Performed By: #### P T #### [facility] [address] [place] [address] Glucose [Mass/Vol] 233 mg/dL Normal [facility] Comment on above: Result Comment: [place] om Glucose Reference Range is dependent on time and content of last meal. Glucose of more than 200 mg/dL in a nonstressed, ambulatory subject supports the diagnosis of Diabetes Mellitus. Performed By: #### P T #### [facility] [address] [place] [address] Commemt1 Glu2: Cleaned Meter Normal [facility] Comment on above: Result Comment: PERF ORMED BY: [place] [address] PATHOLOGIST PUBLIC HE[employer] REGISTRAR ADRIAN ROBERTSON M.D. Performed By: #### P T #### [address] Glucose [Mass/Vol] 127 mg/dL Normal [facility] Comment on above: Result Comment: [place] om Glucose Reference Range is dependent on time and content of last meal. Glucose of more than 200 mg/dL in a nonstressed, ambulatory subject supports the diagnosis of Diabetes Mellitus. Performed By: #### P T #### [address] No Panel InformationOrdered By: Shaka Echavarria on 11-11-2021 Bedside Glucose Comment Glu2: cleaned meter [facility] Estimated GFR () 45 mL/Min [facility] Comment on above: GFR estimated refere nce range: According to KDOQI guidelines, <60 ml/min/1.73m2 is sufficient to diagnose a patient with chronic kidney disease. Pharmacy Creatinine Clearance (Chem 29.48 [facility] Serum or plasma calcium missy urement (mass/volume)Ordered By: Shaka Echavarria on 11-11-2021 Calcium [Mass/Vol] 8.9 mg/dL 8.2-10.2 [facility] Serum or plasma chloride ken surement (moles/volume)Ordered By: Shaka Echavarria on 11-11-2021 Chloride [Moles/Vol] 94 mmol/L 95-114 [facility] Serum or plasma glucose missy urement (mass/volume)Ordered By: Shaka Echavarria on 11-11-2021 Glucose [Mass/Vol] 297 mg/dL 70-100 [facility] Comment on above: [place]: 179 on -0432ADA recommended reference rangeRandom Glucose Reference Range is dependent on time and content of last meal. Glucose of more than 200 mg/dL in a nonstressed, ambulatory subject supports the diagnosis of Diabetes Mellitus. Serum or plasma potassium me asurement (moles/volume)Ordered By: ShakaVazquez on 11-11-2021 Potassium [Moles/Vol] 3.7 mmol/L 3.5-5.1 [facility] Serum or plasma sodium measu rement (moles/volume)Ordered By: Shaka Echavarria on 11-11-2021 Sodium [Moles/Vol] 132 mmol/L 136-146 [facility] Serum or plasma total carbon dioxide measurement (moles/volume)Ordered By: Shaka Echavarria on 11-11-2021 CO2 [Moles/Vol] 22.6 mmol/L 22.0-30.0 [facility] Serum or plasma urea nitroge n measurement (mass/volume)Ordered By: Shaka Echavarria on 11-11-2021 Urea nitrogen [Mass/Vol] 19 mg/dL 9-23 [facility] Basic Metabolic Panelon 10-24 Calcium [Mass/Vol] 8.9 mg/dL Normal 8.2-10.2 [facility] Comment on above: Performed By: #### B MP, PT, CBC #### [facility] [address] [place] [address] [place] Chloride [Moles/Vol] 96 mmol/L Normal 95-114 [facility] Comment on above: Performed By: #### B MP, PT, CBC #### [facility] [address] [place] [id number] [place] CO2 [Moles/Vol] 29.6 mmol/L Normal 22.0-30.0 [facility] Comment on above: Performed By: #### B MP, PT, CBC #### [facility] [address] Creatinine [Mass/Vol] 0.89 mg/dL Normal 0.44-1.03 [facility] Comment on above: Performed By: #### B MP, PT, CBC #### [facility] [address] Creatinine Clr Calc Pharmacy 45.71 Normal [facility] Comment on above: Result Comment: PERF ORMED BY: [place] [address] PATHOLOGIST PUBLIC HEALTH REGISTRAR ADRIAN ROBERTSON M.D. Performed By: #### B MP, PT, CBC #### [address] Estimated GFR ( Rafaela > 60 [facility] Comment on above: Result Comment: GFR estimated reference range: According to KDOQI guidelines, <60 ml/min/1.73m2 is sufficient to diagnose a patient with chronic kidney disease. Performed By: #### B MP, PT, CBC #### [facility] [address] Estimated GFR (Non- Am > 60 [facility] Comment on above: Performed By: #### B MP, PT, CBC #### [address] Glucose [Mass/Vol] 179 mg/dL High 70-100 [facility] Comment on above: Result Comment: [place] Glucose Reference Range is dependent on time and content of last meal. Glucose of more than 200 mg/dL in a nonstressed, ambulatory subject supports the diagnosis of Diabetes Mellitus. ADA recommended reference range Performed By: #### B MP, PT, CBC #### [facility] [address] Potassium [Moles/Vol] 3.1 mmol/L Low 3.5-5.1 [facility] Comment on above: Performed By: #### B MP, PT, CBC #### [facility] [address] [place] [address] [place] Sodium [Moles/Vol] 137 mmol/L Normal 136-146 [facility] Comment on above: Performed By: #### B MP, PT, CBC #### [facility] [address] Urea nitrogen [Mass/Vol] 10 mg/dL Normal 9-23 [facility] Comment on above: Performed By: #### B MP, PT, CBC #### [facility] [address] Basophils Auto (Bld) [#/Vol] Ordered By: Salma Cortes on 11-10-2021 Basophils (Bld) [#/Vol] 0.0 10*3/uL 0.0-0.2 [facility] Basophils/100 WBC Auto (Bld) Ordered By: Salma Cortes on 11-10-2021 Basophils/100 WBC (Bld) 0.2 % [facility] Blood hemoglobin measurement (mass/volume)Ordered By: Salma Cortes on 11-10-2021 Hemoglobin (Bld) [Mass/Vol] 13.2 g/dL 11.8-15.4 [facility] Blood leukocytes automated c ount (number/volume)Ordered By: Salma Cortes on 11-10-2021 WBC (Bld) [#/Vol] 10.7 10*3/uL 4.5-11.0 [facility] CT head/brain wo conon 11-10 CT head/brain wo con [facility] [place] [address] [place] [address] CT Scan Report Signed Patient: Andrew Barros MR#: [id number] : 1945 Acct:[id number] Age/Sex: 76 / F ADM Date: 11/09/21 Loc: Room: [address] [place] [address] Type: ADM IN Attending Dr: Shaka Echavarria [...] Trina Watts M.D.11/10/2021 8:43 AM Dictation Location: [place] [address] Transcribed By: [facility] 11/10/2143 Dictated By: Trina Watts II, MD 11/10/21 0840 Signed By: 11/10/2143 Normal [facility] Complete Blood Count Auto Di ffon 11-10-2021 Basophils (Bld) [#/Vol] 0.0 10*3/uL Normal 0.0-0.2 [facility] Comment on above: Result Comment: PERF ORMED BY: [facility] [address] [place] [address] PATHOLOGIST PUBLIC HEALTH REGISTRAR ADRIAN ROBERTSON M.D. Performed By: #### B MP, PT, CBC #### [facility] [address] [place] [address] [place] Basophils/100 WBC (Bld) 0.2 % Normal . [facility] Comment on above: Performed By: #### B MP, PT, CBC #### [facility] [address] [place] [address] [place] Eosinophils (Bld) [#/Vol] 0.0 10*3/uL Normal 0.0-0.45 [facility] Comment on above: Performed By: #### B MP, PT, CBC #### [facility] [address] [place] [address] [place] Eosinophils/100 WBC (Bld) 0.1 % Normal . [facility] Comment on above: Performed By: #### B MP, PT, CBC #### [facility] [address] Erythrocyte distribution width (RBC) [Ratio] 13.8 % Normal 11.9-15.3 [facility] Comment on above: Performed By: #### B MP, PT, CBC #### [facility] [address] [place] [address] [place] Hematocrit (Bld) [Volume fraction] 39.1 % Normal 34.0-46.4 [facility] Comment on above: Performed By: #### B MP, PT, CBC #### [facility] [address] [place] [address] [place] Hemoglobin (Bld) [Mass/Vol] 13.2 g/dL Normal 11.8-15.4 [facility] Comment on above: Performed By: #### B MP, PT, CBC #### [facility] [address] [place] [address] [place] Lymphocytes (Bld) [#/Vol] 1.3 10*3/uL Normal 1.00-4.8 [facility] Comment on above: Performed By: #### B MP, PT, CBC #### [facility] [address] [place] [address] [place] Lymphocytes/100 WBC (Bld) 12.0 % Normal . [facility] Comment on above: Performed By: #### B MP, PT, CBC #### [address] MCH (RBC) [Entitic mass] 30.4 pg Normal 24.7-34.3 [facility] Comment on above: Performed By: #### B MP, PT, CBC #### [address] MCV (RBC) [Entitic vol] 90.0 fL Normal 80-100 [facility] Comment on above: Performed By: #### B MP, PT, CBC #### [address] Mean Corpuscular HGB Conc 33.8 g/dL Normal 32.0-35.0 [facility] Comment on above: Performed By: #### B MP, PT, CBC #### [address] Monocytes (Bld) [#/Vol] 1.2 10*3/uL High 0.0-0.8 [facility] Comment on above: Performed By: #### B MP, PT, CBC #### [address] Monocytes/100 WBC (Bld) 10.8 % Normal . [facility] Comment on above: Performed By: #### B MP, PT, CBC #### [address] Neutrophils (Bld) [#/Vol] 8.2 10*3/uL High 1.8-7.7 [facility] Comment on above: Performed By: #### B MP, PT, CBC #### [address] Neutrophils/100 WBC (Bld) 76.9 % Normal . [facility] Comment on above: Performed By: #### B MP, PT, CBC #### [address] Nucleated RBC/100 WBC (Bld) [Ratio] 0.1 % Normal 0-0.5 [facility] Comment on above: Performed By: #### B MP, PT, CBC #### [address] Platelet mean volume (Bld) [Entitic vol] 9.2 fL Normal 6.3-10.7 [facility] Comment on above: Performed By: #### B MP, PT, CBC #### [address] Platelets (Bld) [#/Vol] 261 10*3/uL Normal 150-450 [facility] Comment on above: Performed By: #### B MP, PT, CBC #### [address] RBC (Bld) [#/Vol] 4.35 10*6/uL Normal 3.60-5.00 [facility] Comment on above: Performed By: #### B MP, PT, CBC #### [address] WBC (Bld) [#/Vol] 10.7 10*3/uL Normal 4.5-11.0 [facility] Comment on above: Performed By: #### B MP, PT, CBC #### [address] Eosinophils Auto (Bld) [#/Vo l]Ordered By: Salma Cortes on 11-10-2021 Eosinophils (Bld) [#/Vol] 0.0 10*3/uL 0.0-0.45 [facility] Eosinophils/100 WBC Auto (Bl d)Ordered By: Salma Cortes on 11-10-2021 Eosinophils/100 WBC (Bld) 0.1 % [facility] Erythrocyte distribution wid th Auto (RBC) [Ratio]Ordered By: Salma Cortes on 11-10-2021 Erythrocyte distribution width (RBC) [Ratio] 13.8 % 11.9-15.3 [facility] Glucose Poct Glucometerson 0 11-10-2021 Glucose [Mass/Vol] 183 mg/dL Normal [facility] Comment on above: Result Comment: [place] Glucose Reference Range is dependent on time and content of last meal. Glucose of more than 200 mg/dL in a nonstressed, ambulatory subject supports the diagnosis of Diabetes Mellitus. PERFORMED BY: [address] [place] [id number] PATHOLOGIST PUBLIC HEALTH REGISTRAR ADRIAN ROBERTSON M.D. Performed By: #### G LULS #### Point of Care testing , Glucose [Mass/Vol] 135 mg/dL Normal [facility] Comment on above: Result Comment: [facility] Glucose Reference Range is dependent on time and content of last meal. Glucose of more than 200 mg/dL in a nonstressed, ambulatory subject supports the diagnosis of Diabetes Mellitus. PERFORMED BY: [address] [address] PATHOLOGIST PUBLIC HEALTH REGISTRAR ADRIAN ROBERTSON M.D. Performed By: #### G LULS #### Point of Care testing , Glucose [Mass/Vol] 235 mg/dL Normal [facility] Comment on above: Result Comment: [facility] Glucose Reference Range is dependent on time and content of last meal. Glucose of more than 200 mg/dL in a nonstressed, ambulatory subject supports the diagnosis of Diabetes Mellitus. PERFORMED BY: [address] [address] PATHOLOGIST PUBLIC HEALTH REGISTRAR ADRIAN ROBERTSON M.D. Performed By: #### G LULS #### Point of Care testing , Glucose [Mass/Vol] 110 mg/dL Normal [facility] Comment on above: Result Comment: [facility] Glucose Reference Range is dependent on time and content of last meal. Glucose of more than 200 mg/dL in a nonstressed, ambulatory subject supports the diagnosis of Diabetes Mellitus. PERFORMED BY: [address] [place] [id number] PATHOLOGIST PUBLIC HEALTH REGISTRAR ADRIAN ROBERTSON M.D. Performed By: #### G LULS #### Point of Care testing , Hematocrit Auto (Bld) [Volum e fraction]Ordered By: Salma Cortes on 11-10-2021 Hematocrit (Bld) [Volume fraction] 39.1 % 34.0-46.4 [facility] Laboratory - CoagulationOrde red By: Salma Cortes on 11-10-2021 PT Coag (PPP) [Time] 12.6 s 9.0-12.9 [facility] Laboratory - Hematology and Cell countsOrdered By: Salma Cortes on 11-10-2021 Nucleated RBC/100 WBC (Bld) [Ratio] 0.1 % 0-0.5 [facility] Lymphocytes Auto (Bld) [#/Vo l]Ordered By: Salma Cortes on 11-10-2021 Lymphocytes (Bld) [#/Vol] 1.3 10*3/uL 1.00-4.8 [facility] Lymphocytes/100 WBC Auto (Bl d)Ordered By: Salma Cortes on 11-10-2021 Lymphocytes/100 WBC (Bld) 12.0 % [facility] MCH Auto (RBC) [Entitic mass ]Ordered By: Salma Cortes on 11-10-2021 MCH (RBC) [Entitic mass] 30.4 pg 24.7-34.3 [facility] MCHC Auto (RBC) [Mass/Vol]Or dered By: Salma Cortes on 11-10-2021 MCHC (RBC) [Mass/Vol] 33.8 g/dL 32.0-35.0 [facility] MCV Auto (RBC) [Entitic vol] Ordered By: Salma Cortes on 11-10-2021 MCV (RBC) [Entitic vol] 90.0 fL 80-100 [facility] Monocytes Auto (Bld) [#/Vol] Ordered By: aSlma Cortes on 11-10-2021 Monocytes (Bld) [#/Vol] 1.2 10*3/uL 0.0-0.8 [facility] Monocytes/100 WBC Auto (Bld) Ordered By: Salma Cortes on 11-10-2021 Monocytes/100 WBC (Bld) 10.8 % [facility] Neutrophils Auto (Bld) [#/Vo l]Ordered By: Salma Cortes on 11-10-2021 Neutrophils (Bld) [#/Vol] 8.2 10*3/uL 1.8-7.7 [facility] Neutrophils/100 WBC Auto (Bl d)Ordered By: Salma Cortes on 11-10-2021 Neutrophils/100 WBC (Bld) 76.9 % [facility] Platelet mean volume Auto (B ld) [Entitic vol]Ordered By: Salma Cortes on 11-10-2021 Platelet mean volume (Bld) [Entitic vol] 9.2 fL 6.3-10.7 [facility] Platelet poor plasma interna tional normalized ratio (INR) by coagulation assay (relatOrdered By: Salma Cortes on 11-10-2021 INR Coag (PPP) [Relative time] 1.1 {INR} [facility] Comment on above: INR Therapeutic Rang [...] 11-10-2021 Platelets (Bld) [#/Vol] 261 10*3/uL 150-450 [facility] Prothrombin Time INRon 11-10 INR Coag (PPP) [Relative time] 1.1 {INR} Normal [facility] Comment on above: Result Comment: INR [...] heart valves: 3 - 4.5 PERFORMED BY: [place] [address] [place] [place] [address] PATHOLOGIST PUBLIC HEALTH REGISTRAR JIANLAN SUN M.D. Performed By: #### B MP, PT, CBC #### [facility] [address] PT Coag (PPP) [Time] 12.6 s Normal 9.0-12.9 [facility] Comment on above: Performed By: #### B MP, PT, CBC #### [facility] [address] INR Coag (PPP) [Relative time] 1.2 {INR} Normal [facility] Comment on above: Order Comment: that [...] heart valves: 3 - 4.5 PERFORMED BY: [place] [address] PATHOLOGIST PUBLIC HEALTH REGISTRAR ADRIAN ROBERTSON M.D. Performed By: #### P T #### [address] PT Coag (PPP) [Time] 12.9 s Normal 9.0-12.9 [facility] Comment on above: Order Comment: that no one else will be tiring until 3rd comes in. psw 2013 Performed By: #### P T #### [address] RBC Auto (Bld) [#/Vol]Ordere d By: Salma Cortes on 11-10-2021 RBC (Bld) [#/Vol] 4.35 10*6/uL 3.60-5.00 [facility] BNPon 11-09-2021 Natriuretic peptide B (Bld) [Mass/Vol] 914.0 pg/mL Normal <=1,800.0 [facility] Comment on above: Performed By: #### C MADM, CMP, BNP ####[facility] [address] [place] [id number]. Swathi Chato CARDIAC TRINA ADMITon 022 CK [Catalytic activity/Vol] 50 U/L Normal 30-135 [facility] Comment on above: Performed By: #### C MADM, CMP, BNP ####[facility] M[address]mp[address]zuo[address] [place] [id number]. Inessatracy Reis CK.MB [Mass/Vol] 1.14 ng/mL Normal <=2.37 [facility] Comment on above: Performed By: #### C MADM, CMP, BNP ####[facility] [address] [place] [address]Dr. Swathi Reis HSTROP 12.8 pg/mL Normal 4.0-35.5 [facility] Comment on above: Result Comment: CUT- OFF POINTS HAVE BEEN ESTABLISHED BASED ON THE FOURTH UNIVERSAL DEFINITIONS OF MYOCARDIALINFARCTION. THE UPPER REFERENCE LIMIT (URL) OF TROPONIN, DEFINED THE 99TH PERCENTILE OFcTnI DISTRIBUTION IN A REFERENCE POPULATION, HAS BEEN CONFIRMED THE DECISION THRESHOLDFOR NM DIAGNOSIS. Performed By: #### C MADM, CMP, BNP ####[facility] [address] [place] [address]Dr. Swathi Chato GUANACO 53.0 ng/mL Normal <=61.5 [facility] Comment on above: Performed By: #### C MADM, CMP, BNP ####[facility] [address]sc[address] [place] [id number]. Inessatracy Reis CBC AUTO DIFFon 11-09-2021 BASO # 0.0 103/ul Normal 0.0-0.1 [facility] Comment on above: Performed By: #### C BC ####[facility] D[address]ch[address] [place] [id number]. Inessatracy Reis Basophils/100 WBC (Bld) 0.3 % Normal 0.2-2.0 [facility] Comment on above: Performed By: #### C BC ####[facility] [address] [place] [address]Dr. Swathi Reis EO # 0.0 103/ul Normal 0.0-0.7 [facility] Comment on above: Performed By: #### C BC ####[facility] Cam[address] [place] [address]Dr. Swathi Reis Eosinophils/100 WBC (Bld) 0.2 % Critically low 0.9-7.0 [facility] Comment on above: Performed By: #### C BC ####[facility] [address]spzet[address] [place] [address]Dr. Swathi Reis Erythrocyte distribution width (RBC) [Ratio] 13.1 % Normal 11.0-15.0 [facility] Comment on above: Performed By: #### C BC ####[facility] [address] [place], [place] [address]Dr. Swathi Reis Hematocrit (Bld) [Volume fraction] 40.8 % Normal 36.0-48.0 [facility] Comment on above: Performed By: #### C BC ####[facility] C[address]im[address]qz[address] [place], [place] [address]Dr. Swathi Reis Hemoglobin (Bld) [Mass/Vol] 13.3 g/dL Normal 12.0-16.0 [facility] Comment on above: Performed By: #### C BC ####[facility] [address] [place], [place] [address]Dr. Swathi Reis IG # 0.05 10e3/ul Critically high 0.00-0.03 [facility] Comment on above: Performed By: #### C BC ####[facility] M[address] [place], [place] [address]Dr. Swathi Reis IG % 0.4 % Normal 0.0-0.5 [facility] Comment on above: Performed By: #### C BC ####[facility] Oj[address]mwups[address] [place], [place] [address]DrOtto Swathi Chato LYMPH # 1.0 103/ul Critically low 1.2-3.8 [facility] Comment on above: Performed By: #### C BC ####[facility] Cvmzitulnc[address] [place], [place] [address]Dr. Swathi Chato Lymphocytes/100 WBC (Bld) 8.3 % Critically low 20.5-60.0 [facility] Comment on above: Performed By: #### C BC ####[facility] Wvxvfxfnyc[address] [place] [address]Dr. Swathi Reis MANUAL DIFF REQ NO Normal [facility] Comment on above: Performed By: #### C BC ####[facility] Kxqmqbthqn13[address] [place] [phone]. Swathi Reis MCH (RBC) [Entitic mass] 29.8 pg Normal 26.7-34.0 [facility] Comment on above: Performed By: #### C BC ####[facility] Seedkpvipn14[address] [place] [address]Dr. Swathi Reis MCHC (RBC) [Mass/Vol] 32.6 g/dL Normal 29.9-35.2 [facility] Comment on above: Performed By: #### C BC ####[facility] H[address]hegh[address] [place], [place] [address]Dr. Swathi Reis MCV (RBC) [Entitic vol] 91.5 fL Normal 81.0-99.0 [facility] Comment on above: Performed By: #### C BC ####[facility] [address] [place], [place] [address]DrOtto Reis MONO # 0.6 103/ul Normal 0.3-0.8 [facility] Comment on above: Performed By: #### C BC ####[facility] [address] [place], [place] [address]DrOtto Reis Monocytes/100 WBC (Bld) 4.9 % Normal 1.7-12.0 [facility] Comment on above: Performed By: #### C BC ####[facility] Z[address] [place], [place] [address]DrOtto Reis NEUT # 10.5 103/ul Critically high 1.4-6.5 [facility] Comment on above: Performed By: #### C BC ####[facility] [address] [place], [place] [address]DrOtto Reis Neutrophils/100 WBC (Bld) 85.9 % Critically high 43.0-75.0 [facility] Comment on above: Performed By: #### C BC ####[facility] Z[address]lsvp30[address] [place] [phone]. Swathi Reis Platelet mean volume (Bld) [Entitic vol] 10.9 fL Normal 9.5-13.5 [facility] Comment on above: Performed By: #### C BC ####[facility] R[address]uwdbuav[address] [place] [phone]. Swathi Reis PLT 290 103/ul Normal 150-450 [facility] Comment on above: Performed By: #### C BC ####[facility] Qcy[address]ylje[address] [place], [place] [address]Bm. Swathi Reis RBC 4.46 106/ul Normal 4.20-5.40 [facility] Comment on above: Performed By: #### C BC ####[facility] Ivoqxyqbxi3872 [place] [phone]. Swathi Reis WBC 12.3 103/ul Critically high 4.0-11.0 [facility] Comment on above: Performed By: #### C BC ####[facility] As[address]om[address] [place], [place] [address]. [address] HEAD WO CONon 11-09-2021 CT HEAD WO CON Normal [facility] ([facility]on [facility]-24 SARS-CoV-2 (COVID-19) RNA ÓSCAR+probe Ql (Unsp spec) Not detected Normal NOT DETECTED [facility] Comment on above: Result Comment: When [...] for this test is supported by the [place] [employer] and Human Service's declaration that [...] be used). Performed By: #### C VDTB ####[facility] Xfim[address]fvmz[address] [place] [address]Dr. Swathi Reis ER URINE PROFILEon 2 Bilirubin Ql (U) Negative Normal NEGATIVE [facility] Comment on above: Performed By: #### Amaury WATERS UMICRO ####[facility] [address]xvnfc[address] [place], [place] [address]Dr. Swathi Reis Clarity (U) CLEAR Normal CLEAR [facility] Comment on above: Performed By: #### Amaury WATERS UMICRO ####[facility] X[address] [place], [place] [address]Dr. Swathi Reis Color (U) LT. YELLOW Normal YELLOW [facility] Comment on above: Performed By: #### Amaury WATERS UMICRO ####[facility] O[address]velfn[address] [place], [place] [address]Dr. Swathi Reis ERUAHD A micrscopic examina tion will be performed if indicated. Normal [facility] Comment on above: Performed By: #### Amaury WATERS UMICRO ####[facility] Vq[address]yaevos[address] [place], [place] [address]Dr. Swathi Reis Glucose Ql (U) Negative Normal NEGATIVE [facility] Comment on above: Performed By: #### Amaury WATERS UMICRO ####[facility] S[address]ys[address] [place], [place] [address]Dr. Swathi Reis Hemoglobin Ql (U) TRACE-INTACT Abnormal NEGATIVE [facility] Comment on above: Performed By: #### Amaury WATERS UMICRO ####[facility] Yxnqjseeei[address] [place], [place] [address]Dr. Swathi Reis Ketones Ql (U) Negative Normal NEGATIVE [facility] Comment on above: Performed By: #### Amaury WATERS UMICRO ####[facility] V[address]vmyb[address] [place] [address]Dr. Swathi Reis LEUKOCYTES Negative Normal NEGATIVE [facility] Comment on above: Performed By: #### REYNOLD SOSA ####[facility] Mhc[address]rlnv0436 [place] [address]Dr. Swathi Reis Nitrite Ql (U) Negative Normal NEGATIVE [facility] Comment on above: Performed By: #### REYNOLD SOSA ####[facility] [address] [place] [address]Dr. Swathi Reis pH (U) 6.0 [pH] Normal 5-9 [facility] Comment on above: Performed By: #### REYNOLD SOSA ####[facility] [address]ydpa[address] [place] [address]Dr. Swathi Reis SPEC GRAVITY 1.010 Normal 1.005-<=1.0 25 [facility] Comment on above: Performed By: #### REYNOLD SOSA ####[facility] Jkpcwtsggj38[address] [place] [address]Dr. Swathi Reis UA PROTEIN TRACE Normal NEGATIVE/ TRACE [facility] Comment on above: Performed By: #### REYNOLD SOSA ####[facility] Y[address]etein[address] [place] [address]Dr. Swathi Reis UR MICRO IND INDICATED Normal [facility] Comment on above: Performed By: #### REYNOLD SOSA ####[facility] B[address]wszpac4[address] [place] [address]Dr. Swathi Reis Urobilinogen Qn (U) 0.2 {Sánchez'U}/dL Normal 0.2 - 1. 0 [facility] Comment on above: Performed By: #### REYNOLD SOSA ####[facility] Shewegtobb[address] [place] [address]Dr. Swathi Reis Glucose Poct Glucometerson 0 11-09-2021 Glucose [Mass/Vol] 178 mg/dL Normal [facility] Comment on above: Result Comment: [place] Glucose Reference Range is dependent on time and content of last meal. Glucose of more than 200 mg/dL in a nonstressed, ambulatory subject supports the diagnosis of Diabetes Mellitus. PERFORMED BY: [facility] Maranda [place] [address] PATHOLOGIST PUBLIC HEALTH REGISTRAR ADRIAN ROBERTSON M.D. Performed By: #### G KIMBERLY #### Point of Care testing , PROF 14(COMP METB)on 022 Albumin [Mass/Vol] 3.5 g/dL Normal 3.5-5.0 [facility] Comment on above: Performed By: #### C MADM, CMP, BNP ####[facility] [address]xf[address]humxd[address] [place] [address]Dr. Swathi Reis Albumin/Globulin [Mass ratio] 1.0 {ratio} Normal [facility] Comment on above: Performed By: #### C MADM, CMP, BNP ####[facility] [address]rtpjes[address] [place] [address]Dr. Swathi Reis ALP [Catalytic activity/Vol] 93 U/L Normal 38-126 [facility] Comment on above: Performed By: #### C MADM, CMP, BNP ####[facility] Thzlwfuxfc5364 [place] [address]Dr. Swathi Reis ALT [Catalytic activity/Vol] 22 U/L Normal 9-52 [facility] Comment on above: Performed By: #### C MADM, CMP, BNP ####[facility] Xnecnnvzzq[address]4 [place] [address]Dr. Swathi Reis Anion gap [Moles/Vol] 15.4 mmol/L Normal [facility] Comment on above: Performed By: #### C MADM, CMP, BNP ####[facility] H[address]ypjfdbsp3538 [place] [id number]. Swathi Reis AST [Catalytic activity/Vol] 21 U/L Normal 14-36 [facility] Comment on above: Performed By: #### C MADM, CMP, BNP ####[facility] Pqckwxlwzs8374 [place] [id number]. Swathi Reis Bilirubin [Mass/Vol] 0.7 mg/dL Normal 0.2-1.3 [facility] Comment on above: Performed By: #### C MADM, CMP, BNP ####[facility] Vhibdqxaeh[address] [place] [address]Dr. Swathi Reis Calcium [Mass/Vol] 9.5 mg/dL Normal 8.4-10.2 [facility] Comment on above: Performed By: #### C MADM, CMP, BNP ####[facility] F[address]klkgptq[address] [place] [address]Dr. Swathi Reis Chloride [Moles/Vol] 99 mmol/L Normal 98-107 [facility] Comment on above: Performed By: #### C MADM, CMP, BNP ####[facility] Ajodaclmrz[address] [place] [address]Dr. Swathi Reis CO2 [Moles/Vol] 31.0 mmol/L Critically high 22.0-30.0 [facility] Comment on above: Performed By: #### C MADM, CMP, BNP ####[facility] [address]mxulkmnd25[address] [place] [address]Dr. Swathi Reis Creatinine [Mass/Vol] 1.10 mg/dL Critically high 0.52-1.04 [facility] Comment on above: Performed By: #### C MADM, CMP, BNP ####[facility] [address]vhimz[address] [place] [address]Dr. Swathi Reis EGFR-AF MAURITANIAN 58 mL/min/1.73m2 Critically low >=60 [facility] Comment on above: Performed By: #### C MADM, CMP, BNP ####[facility] [address]im[address]sc[address] [place], [place] [address]Dr. Swathi Reis EGFR-NON AF MAURITANIAN 48 mL/min/1.73m2 Critically low >=60 [facility] Comment on above: Performed By: #### C MADM, CMP, BNP ####[facility] Ty[address]ggtq[address] [place] [address]Dr. Swathi Reis Globulin (S) [Mass/Vol] 3.5 g/dL Normal [facility] Comment on above: Performed By: #### C MADM, CMP, BNP ####[facility] [address]zbfntgp39[address] [place] [address]Dr. Swathi Reis Glucose [Mass/Vol] 203 mg/dL Critically high 74-106 [facility] Comment on above: Performed By: #### C MADM, CMP, BNP ####[facility] [address] [place] [address]Dr. Swathi Reis Potassium [Moles/Vol] 4.4 mmol/L Normal 3.4-5.0 [facility] Comment on above: Performed By: #### C MADM, CMP, BNP ####[facility] [address] [place] [address]Dr. Swahti Reis Protein [Mass/Vol] 7.0 g/dL Normal 6.1-8.2 [facility] Comment on above: Performed By: #### C MADM, CMP, BNP ####[facility] Z[address] [place], [place] [address]Dr. Swathi Reis Sodium [Moles/Vol] 141 mmol/L Normal 137-145 [facility] Comment on above: Performed By: #### C MADM, CMP, BNP ####[facility] [address] [place], [place] [address]Dr. Swathi Reis Urea nitrogen [Mass/Vol] 21.0 mg/dL Critically high 7.0-17.0 [facility] Comment on above: Performed By: #### C MADM, CMP, BNP ####[facility] [address] [place] [address]Dr. Swathi Reis Urea nitrogen/Creatinine [Mass ratio] 19.1 mg/mg Normal [facility] Comment on above: Performed By: #### C MADM, CMP, BNP ####[facility] S[address] [place], [place] [address]Dr. Swathi Reis PROTIMEon 11-09-2021 INR Coag (PPP) [Relative time] 1.09 {INR} Normal [facility] Comment on above: Performed By: #### P T, PTT ####[facility] [address] [place], [place] [address]Dr. Swathi Reis INR GUIDELINES SEE BELOW Normal [facility] Comment on above: Result Comment: HARRIETT RED INR: 2.0 - 3.0 CONDITIONS NOT LISTED BELOW 2.5 - 3.5 FOR PROSTHETIC HEART VALVE REPLACEMENT 2.5 - 3.5 RECURRENT THROMBOSIS Performed By: #### P T, PTT ####[facility] W[address] [place], [place] [address]Dr. Swathi Reis PT Coag (PPP) [Time] 11.7 s Critically high 9.0-11.6 [facility] Comment on above: Performed By: #### P T, PTT ####[facility] [address] [place], [place] [address]Dr. Swathi Reis INR Coag (PPP) [Relative time] 3.45 {INR} Normal [facility] Comment on above: Performed By: #### P TT, PT ####[facility] [address] [place], [place] [address]Dr. Swathi Reis INR GUIDELINES SEE BELOW Normal [facility] Comment on above: Result Comment: HARRIETT RED INR: 2.0 - 3.0 CONDITIONS NOT LISTED BELOW 2.5 - 3.5 FOR PROSTHETIC HEART VALVE REPLACEMENT 2.5 - 3.5 RECURRENT THROMBOSIS Performed By: #### P TT, PT ####[facility] [address] [place], [place] [address]Dr. Swathi Reis PT Coag (PPP) [Time] 34.4 s Critically high 9.0-11.6 [facility] Comment on above: Performed By: #### P TT, PT ####[facility] Htm[address] [place], [place] [address]Dr. Swathi Reis PTTon 11-09-2021 aPTT Coag (Bld) [Time] 25.9 s Normal 22.3-36.2 [facility] Comment on above: Performed By: #### P T, PTT ####[facility] [address] [place], [place] [address]Dr. Swathi Reis aPTT Coag (Bld) [Time] 39.1 s Critically high 22.3-36.2 [facility] Comment on above: Performed By: #### P TT, PT ####[facility] [address] [place], [place] [address]Dr. Swathi Reis TYPE AND SCREENon 11-09-2021 TYPE AND SCREEN Negative Normal [facility] Comment on above: Performed By: #### T NS ####[facility] I[address] [place], [place] [address]Dr. Swathi Reis URINE MICROSCOPIC ONLYon BACTERIA NONE SEEN Normal NONE SEEN [facility] Comment on above: Performed By: #### Amaury WATERS UMICRO ####[facility] [address] [place], [place] [address]Dr. Swathi Reis Bacteria identified Cx Nom (U) NOT INDICATED Normal [facility] Comment on above: Performed By: #### Amaury WATERS UMICRO ####[facility] Y[address]ke[address] [place], [place] [address]Dr. Swathi Reis CAST NONE SEEN Normal NONE SEEN [facility] Comment on above: Performed By: #### Amaury WATERS UMICRO ####[facility] G[address]ws[address] [place], [place] [address]Dr. Swathi Reis Crystals LM Nom (Urine sed) NONE SEEN Normal NONE SEEN [facility] Comment on above: Performed By: #### Amaury WATERS UMICRO ####[facility] [address] [place], [place] [address]Dr. Swathi Reis Epithelial cells LM Ql (Urine sed) FEW Abnormal NONE SEEN /RARE [facility] Comment on above: Performed By: #### Amaury WATERS UMICRO ####[facility] N[address] [place], [place] [address]Dr. Swathi Reis MUCOUS NONE SEEN Normal NONE SEEN [facility] Comment on above: Performed By: #### Amaury WATERS UMICRO ####[facility] [address] [place], [place] [address]Dr. Swathi Reis RBC 2-5 Abnormal 0-2 [facility] Comment on above: Performed By: #### Amaury WATERS UMICRO ####[facility] [address] [place], [place] [address]Uw. Swathi Reis WBC NONE SEEN Normal NONE SEEN [facility] Comment on above: Performed By: #### E REYNOLD WATERS ####[facility] [address] [place], [place] [address]Ut. Swathi Reis XR CHEST 1 Von 11-09-2021 XR CHEST 1 V Normal [facility] Coding Summary.on 09-14-2020 Coding Summary. CODING DATE: 020 FINAL [facility] STATUS: Short-Term Hosp as IP PAYOR: Medicare [...] Revised Date Saved: 09/14/2020 08:26 am Normal [facility] EMS Documentationon 09-12-20 EMS Documentation [id number]:127 Normal [facility] ED Clinical Summaryon 2019 ED Clinical Summary (Inserted Image. Ave ble to display) [place] [id number] ED Clinical Summary Person Information Name: ANDREW BARROS[place] Age: 74 Years : 1945 Sex: Female Language: Kinyarwanda PCP: Eduardo Sharpe MD Marital Status: Phone: [phone] Visit Id: Visit Reason: Shortness of breath; [...] 09/09/2020 23:10:35 09/09/2020 23:10:35 09/09/2020 23:10:35 ADDRESS: [address] [place], [place] [id number] PHYS DOC NOTES: Addendum by Koko Pettit DO on September 09, 2020 18:55:26 EST MEDICAL INFORMATION: Prescriptions Given: Medications to Continue with No Changes Other Medications insulin aspart (NovoLog) 8 Units Subcutaneous every day. nitroglycerin nitroglycerin (nitroglycerin 0.4 mg sublingual Tab) 1 Tablets Sublingual every 5 minutes as needed for chest pain. PATIENT EDUCATION INFORMATION: Instructions: Follow up: DIAGNOSIS: COVID-19; Hypoxemia; Pneumonia Normal [facility] ED Patient Education Noteon 09-10-2020 ED Patient Education Note Normal [facility] ED Patient Summaryon 020 ED Patient Summary (Inserted Image. Ave ble to display) [address] [address] Patient Discharge Instructions Person Information Name: ANDREW BARROS Age: 74 Years Arrival Date: 09/09/2020 12:32:39 Discharge Diagnosis: COVID-19; Hypoxemia; Pneumonia Primary Care Physician: Eduardo Sharpe MD Provider Information Primary Provider: Koko Pettit DO Advanced Enrobing Machine Corder:None The exam and treatment you received in the Emergency Department were for an urgent problem and are not intended as complete care. It is important that you follow up with a doctor, nurse practitioner, or physician?s physical therapy assistant for ongoing care. If your symptoms [...] opioids can be used to help relieve wvpxteni-uj-zgsoam pain and are often prescribed following a [...] be struggling with addiction, tell your health patient care and ask for guidance or call [facility]S National Helpline at 2-471-362-SMVW. y Source: [place] Department of Health and Human Services/Center for Disease Control & Prevention [facility] Medications Given: Medication Dose Route levo (more content not included)... Normal [facility] Progress Note-Nurseinna 2019 Progress Note-Nurse [facility] ems at bedside receiving report and preparing patient for transport to [facility]. pt taken off high flow NC and placed on non rebreather at 15L/min o2 for traansport. Normal [facility] Troponin 9 Hr.on 09-10-2020 Troponin I.cardiac [Mass/Vol] 57.60 pg/mL Abnormal 10.10-27.10 [facility] Comment on above: Result Comment: Crit ical [...] Sensitivity Troponin I Instructions For Use, [place], April 2018) Performed By: #### 1 [id number] ####[facility] [address] [place] [address] .Manual Abson 09-09-2020 Basophils/Leukocytes Manual cnt (Bld) [Pure # fraction] 0.0 E9/L Normal 0.0-0.2 [facility] Comment on above: Performed By: #### 1 3618672, 2703216, 1938204, 6744930, 30391899, 15131555, 9326701, 33214683, 74551505 #### [facility] [address] [place] [address] Eosinophils/Leukocyt es Manual cnt (Bld) [Pure # fraction] 0.0 E9/L Normal 0.0-0.5 [facility] Comment on above: Performed By: #### 1 1525774, 3399951, 7950497, 6193539, 07940943, 07061828, 1926029, 01250476, 07875888 #### [facility] [address] [place] [address] Lymphocytes/Leukocyt es Manual cnt (Bld) [Pure # fraction] 0.4 E9/L Low 1.0-4.0 [facility] Comment on above: Performed By: #### 1 2780007, 3770784, 6098709, 8477105, 40340153, 72584179, 7803734, 85486415, 35218397 #### [facility] [address] [place] [address] Monocytes/Leukocytes Manual cnt (Bld) [Pure # fraction] 1.5 E9/L High 0.2-1.0 [facility] Comment on above: Performed By: #### 1 1484642, 5349025, 9836302, 6413788, 48422108, 55818041, 6157404, 25447323, 95039630 #### [facility] [address] [place] [address] Neutrophils/Leukocyt es Auto (Bld) [Pure # fraction] 18.9 E9/L High 2.0-7.5 [facility] Comment on above: Performed By: #### 1 4458056, 9675009, 2231284, 7760636, 46192368, 39480882, 6077934, 88402249, 59689609 #### [facility] [address] [place] [address] [facility] 09-09-2020 Creatinine [Mass/Vol] 1.1 mg/dL Normal 0.5-1.3 [facility] Comment on above: Performed By: #### 1 5890035, 7983225, 7741634, 5904441, 06231071, 00506434, 4821280, 83903142, 17325592 #### [facility] [address] [place] [address] Urea nitrogen [Mass/Vol] 26 mg/dL High 5-21 [facility] Comment on above: Performed By: #### 1 0125268, 6522821, 4036465, 7696264, 27958723, 35684602, 7850274, 32173961, 31384096 #### [facility] [address] [place] [address] Urea nitrogen/Creatinine [Mass ratio] 24 No Units High 10-20 [facility] Comment on above: Performed By: #### 1 1104258, 0840517, 9995930, 7776156, 51668225, 25718394, 3487375, 69446916, 92239939 #### [facility] [address] [place] [address] Anion gap [Moles/Vol] 14 mmol/L Normal 6-16 [facility] Comment on above: Performed By: #### 1 0001421, 0287048, 3489947, 4216153, 72704914, 82694740, 6827312, 26161826, 21381883 #### [facility] [address] [place] [address] Calcium [Mass/Vol] 8.7 mg/dL Low 8.9-11.1 [facility] Comment on above: Performed By: #### 1 2217339, 9726020, 2949917, 0220743, 64469515, 89481738, 0893019, 23841604, 74158815 #### [facility] [address] [place] [address] Chloride [Moles/Vol] 104 mmol/L Normal 101-111 [facility] Comment on above: Performed By: #### 1 7504383, 9016355, 7497549, 6223051, 44320496, 20057212, 7217649, 26050415, 84184368 #### [facility] [address] [place] [address] CO2 [Moles/Vol] 23 mmol/L Normal 21-31 [facility] Comment on above: Performed By: #### 1 5179414, 6654358, 1642330, 6781281, 50531506, 03907614, 5262354, 87952329, 40100561 #### [facility] [address] [place] [address] Glucose [Mass/Vol] 256 mg/dL High 55-199 [facility] Comment on above: Result Comment: If t his glucose result represents a fasting glucose, interpretation should refer to the following reference range: 55-99 mg/dL Performed By: #### 1 2181442, 2168064, 0240967, 3506609, 04505180, 28890210, 2848251, 96631259, 11529587 #### [facility] [address] [place] [address] Potassium [Moles/Vol] 4.9 mmol/L Normal 3.5-5.3 [facility] Comment on above: Performed By: #### 1 4847578, 0943567, 3961624, 8811694, 29740249, 35333507, 4623889, 79937757, 92866636 #### [facility] [address] [place] [address] Sodium [Moles/Vol] 136 mmol/L Normal 135-145 [facility] Comment on above: Performed By: #### 1 4324827, 2603934, 0649896, 6201343, 37839153, 30159611, 8990503, 14394499, 54650264 #### [facility] [address] [place] [address] BNPon 09-09-2020 Int Ctr BNP Pass Normal [facility] Comment on above: Performed By: #### 1 3651345, 6985870, 8351741, 7593728, 21049822, 53384167, 8888026, 82032833, 12865637 ####[facility] [address] [place] [address] Natriuretic peptide B (Bld) [Mass/Vol] 477 pg/mL High 5-80 [facility] Comment on above: Performed By: #### 1 5076107, 0076597, 2254922, 4108401, 86800848, 10203972, 1481653, 54355660, 57236780 ####[facility] [address] [place] [address] Bld Gas Ar[place] 09-09-2020 a/A Ratio Art 37.50 Normal >=0.80 [facility] Comment on above: Performed By: #### 1 3771387 ####[facility] [address] [place] [address] AaDO2 Art 144.6 High 5.0-15.0 [facility] Comment on above: Performed By: #### 1 8896501 ####[facility] [address] [place] [address] Allens Test Positive Invalid Interpretation Code [facility] Comment on above: Result Comment: [facility] Department of Pulmonary Medicine [address] [facility] [place] [address] Performed By: #### 1 1481549 ####[facility] [address] [place] [address] Base excess Calc (Bld) [Moles/Vol] -1.8000 mmol/L Low >=2.8 [facility] Comment on above: Performed By: #### 1 3741113 ####[facility] [address] [place] [address] Called By: MISHA Invalid Interpretation Code [facility] Comment on above: Performed By: #### 1 4036027 ####[facility] [address] [place] [address] Called To: COLTON Invalid Interpretation Code [facility] Comment on above: Performed By: #### 1 7819901 ####[place] [address] [place] [address] cCa2+ Art 4.93 mg/dL Normal 4.40-5.30 [facility] Comment on above: Performed By: #### 1 7540225 ####[address] [address] cCl- Art 106.0 mmol/L Normal 101.0-111.0 [facility] Comment on above: Performed By: #### 1 7332734 ####[address] [address] cGlu Art 262.0 mg/dL High 55.0-199.0 [facility] Comment on above: Result Comment: 83 Performed By: #### 1 5849061 ####[address] [address] cK+ Art 4.9 mmol/L Normal 3.5-5.3 [facility] Comment on above: Performed By: #### 1 4743473 ####[address] [address] cLac Art 1 mmol/L Low 5-14 [facility] Comment on above: Performed By: #### 1 1951354 ####[address] [address] contact center manager+ Art 140.0 mmol/L Normal 135.0-145.0 [facility] Comment on above: Performed By: #### 1 9711378 ####[facility] [address] [place] [address] CO2 (Bld) [Partial pressure] 45.5 mm[Hg] High 35.0-45.0 [facility] Comment on above: Result Comment: 83 Performed By: #### 1 6972646 ####[facility] [address] [place] [address] Device NASAL Invalid Interpretation Code [facility] Comment on above: Performed By: #### 1 8143153 ####[place] [address] [place] [address] Drawn by TSB Invalid Interpretation Code [facility] Comment on above: Performed By: #### 1 4785583 ####[place] [address] [place] [address] Dt/Tm Notified 12:54:00 Invalid Interpretation Code [facility] Comment on above: Performed By: #### 1 3544552 ####[place] [address] [place] [address] FCOHb Art 1.1 % Low 1.5-4.9 [facility] Comment on above: Result Comment: 84 Reference range Nonsmoker <1.5% Smoker <5.0% Heavy Smoker <9.0% Performed By: #### 1 7766125 ####[place] [address] [place] [address] FIO2 BG 40.0 Invalid Interpretation Code [facility] Comment on above: Performed By: #### 1 7501697 ####[place] [address] [place] [address] Flow 5.00 Invalid Interpretation Code [facility] Comment on above: Performed By: #### 1 7377976 ####[facility] [address] [place] [address] FMetHb Art 0.6 % Normal 0.0-1.9 [facility] Comment on above: Performed By: #### 1 8270826 ####[facility] [address] [place] [address] FO2Hb Art 94.9 % Normal 92.0-100.0 [facility] Comment on above: Performed By: #### 1 1441391 ####[place] [address] [place] [address] HCO3 (Bld) [Moles/Vol] 22.9 mmol/L Normal 22.0-26.0 [facility] Comment on above: Performed By: #### 1 0590675 ####[address] [address] Hemoglobin (Bld) [Mass/Vol] 9.9 g/dL Low 12.0-16.0 [facility] Comment on above: Result Comment: 84 Performed By: #### 1 4622327 ####[place] [address]357 Oxygen saturation in Blood 96.6 % Normal 95.0-100.0 [facility] Comment on above: Performed By: #### 1 1785119 ####[address] [address] P O2 Arterial 86.6 mmHg Normal 80.0-100.0 [facility] Comment on above: Performed By: #### 1 8276341 ####[address] [address] pH (Bld) 7.333 [pH] Low 7.350-7.450 [facility] Comment on above: Result Comment: 84 Performed By: #### 1 2815800 ####[place] [address]65357 Sample Site RR Invalid Interpretation Code [facility] Comment on above: Performed By: #### 1 4677629 ####[place] [address]65357 Sample Type Arterial Invalid Interpretation Code [facility] Comment on above: Performed By: #### 1 3555334 ####[address] [address] CBC w/ Auto Diffon 0 Erythrocyte distribution width (RBC) [Ratio] 15.1 % High 10.9-14.2 [facility] Comment on above: Performed By: #### 1 7302079, 1941149, 2897560, 2426050, 53589891, 87698099, 5805229, 83954308, 33650666 #### [facility] [address] [place] [address] Hematocrit (Bld) [Volume fraction] 30.7 % Low 34.0-46.0 [facility] Comment on above: Performed By: #### 1 6908603, 2015451, 8476481, 8408734, 95043376, 44575302, 6974551, 68278886, 48403006 #### [facility] [address] [place], [place] [address] Hemoglobin (Bld) [Mass/Vol] 9.9 g/dL Low 12.0-16.0 [facility] Comment on above: Performed By: #### 1 1390544, 6227320, 9625621, 7038660, 07318375, 63286657, 4752880, 24284049, 14162216 #### [facility] [address] [place], [place] [address] MCH (RBC) [Entitic mass] 29.7 pg Normal 27.0-34.0 [facility] Comment on above: Performed By: #### 1 1974178, 5662370, 8245664, 9166184, 84721304, 70089963, 9497583, 71779030, 43505251 #### [facility] [address] [place] [address] MCHC (RBC) [Mass/Vol] 32.2 g/dL Normal 31.4-36.0 [facility] Comment on above: Performed By: #### 1 7677347, 2784953, 3172018, 5727831, 14652465, 79437318, 4306069, 79828738, 10694239 #### [facility] [address] [place] [address] MCV (RBC) [Entitic vol] 92.3 fL Normal 80.0-100.0 [facility] Comment on above: Performed By: #### 1 5257245, 3133463, 2185828, 4899900, 70844806, 82059767, 9372882, 25091915, 01926023 #### [facility] [address] [place] [address] Platelet mean volume (Bld) [Entitic vol] 8.4 fL Normal 6.4-10.8 [facility] Comment on above: Performed By: #### 1 3883869, 3022092, 2531760, 6468610, 93600733, 01391987, 9284136, 64001207, 19400576 #### [facility] [address] [place] [address] Platelets (Bld) [#/Vol] 243.0 E9/L Normal 150.0-500.0 [facility] Comment on above: Performed By: #### 1 1680151, 7687750, 2747676, 9807439, 94636680, 90826181, 3965392, 60522291, 27235779 #### [facility] [address] [place] [address] RBC (Bld) [#/Vol] 3.3 E12/L Low 4.3-5.9 [facility] Comment on above: Performed By: #### 1 1458466, 1783040, 0825277, 3910132, 50654116, 40092032, 8554831, 97744226, 17342691 #### [facility] [address] [place] [address] WBC corrected for nucl RBC Auto (Bld) [#/Vol] 21.7 E9/L High 4.0-11.0 [facility] Comment on above: Performed By: #### 1 2528171, 4814634, 5010618, 1196854, 25702560, 20730632, 8449846, 74758248, 35466198 #### [facility] [address] [place] [address] CTA Cheston 09-09-2020 CTA Chest Exam Date/Time: [...] 370 Contrast amount in ml's: 66 Normal [facility] Consent for Treatmenton 08-23 Consent for Treatment [id number]:127 Normal [facility] D-Dimeron 09-09-2020 Fibrin D-dimer FEU (PPP) [Mass/Vol] 1480 ng/mL Abnormal 215-500 [facility] Comment on above: Result Comment: Resu lts [...] infections Liver cirrhosis Performed By: #### 1 5346811, 1663114, 0266227, 8241113, 80420285, 40064171, 2508881, 99505219, 29589174 ####[facility] [address] [place] [address] ED Note-Physicianon 09-09-20 ED Note-Physician Basic Information Time Seen: Koko Pettit DO 09/09/2020 12:35 Chief Complaint Sent from [facility] for increased SOB and low oxygen level. Covid positive about 2 weeks ago per EMS History of Present Illness 74 female presents to the emergency department with shortness of breath. Patient presents by EMS from the half-way with Covid positive testing about 2 weeks [...] does not normally wear oxygen at the half-way. No other aggravating or relieving factors no other associated symptoms no other prior treatments or complaints. Family: Reviewed and noncontributory Social: lives at half-way Review of systems negative unless otherwise specified [...] (09/09/20 13 (more content not included)... Normal [facility] Comment on above: Result Comment: Elec tronically Signed By: Koko Pettit DO\.michael\Date and Time Signed: 09/09/20 18:56 EST Lactic Acidon 09-09-2020 Lactate [Mass/Vol] 1.0 mmol/L Normal 0.5-2.2 [facility] Comment on above: Performed By: #### 2 174029 ####[facility] [address] [place] [address] Manual Diffon 09-09-2020 Band form neutrophils/100 WBC (Bld) 6 % Normal 0-10 [facility] Comment on above: Order Comment: Order Added by Discern Expert. Performed By: #### 1 9052535, 5029989, 2731725, 5759812, 63650663, 86167595, 7088999, 71400965, 60830777 #### [facility] [address] [place] [address] Basophils/100 WBC (Bld) 0 % Normal 0-2 [facility] Comment on above: Order Comment: Order Added by Discern Expert. Performed By: #### 1 6810661, 9818400, 7789465, 3034195, 06994673, 82272651, 3410528, 23078937, 30613524 #### [facility] [address] [place] [address] Eosinophils/100 WBC (Bld) 0 % Normal 0-8 [facility] Comment on above: Order Comment: Order Added by Discern Expert. Performed By: #### 1 3957412, 4795667, 2839367, 7718443, 54051723, 18412250, 0605851, 65973503, 10465333 #### [facility] [address] [place] [address] Lymphocytes/100 WBC (Bld) 2 % Low 14-50 [facility] Comment on above: Order Comment: Order Added by Discern Expert. Performed By: #### 1 8334222, 1931973, 3755394, 2767082, 31387188, 51946037, 4243675, 34090734, 89416435 #### [facility] [facility] [address] [place] [address] Metamyelocytes/Leuko cytes Manual cnt (Bld) [Pure # fraction] 2 % High <=0 [facility] Comment on above: Order Comment: Order Added by Discern Expert. Performed By: #### 1 [id number], [id number], 0178488, 9669420, [id number], 55921518, 0237385, [id number], [id number] #### [facility] [address] [place] [address] Monocytes/100 WBC (Bld) 7 % Normal 4-14 [facility] Comment on above: Order Comment: Order Added by Discern Expert. Performed By: #### 1 [id number], [id number], 9968135, 1672338, 22862285, 97880633, 3042011, 00018109, [id number] #### [facility] [address] [place] [address] Morphology Elie (Bld) [Interp] Normal Normal [facility] Comment on above: Order Comment: Order Added by Discern Expert. Performed By: #### 1 [id number], 8494557, 7574161, 0213612, 56805482, 07455724, 8451519, [id number], [id number] #### [facility] [address] [place] [address] Myelocytes/100 WBC (Bld) 2 % High <=0 [facility] Comment on above: Order Comment: Order Added by Discern Expert. Performed By: #### 1 [id number], 5480485, 5077502, 2562764, 69321930, 73928234, 4554399, 10832647, [id number] #### [facility] [address] [place] [address] Nucleated cells (Bld) [#/Vol] 1 High <=0 [facility] Comment on above: Order Comment: Order Added by Discern Expert. Performed By: #### 1 [id number], 9024946, 6000556, 7987385, 87507278, 99434933, 4879433, 26435332, [id number] #### [facility] [address] [place] [address] Segmented neutrophils/100 WBC (Bld) 81 % High 36-75 [facility] Comment on above: Order Comment: Order Added by Discern Expert. Performed By: #### 1 [id number], 0488386, 9963161, 9797557, 76683308, 09476447, 1700249, 01741624, [id number] #### [facility] [address] [place] [address] Variant lymphocytes LM Ql (Bld) 0 % Invalid Interpretation Code [facility] Comment on above: Order Comment: Order Added by Discern Expert. Performed By: #### 1 [id number], 7642978, 0226353, 9179568, 65111982, 57383894, 2602628, 87315939, [id number] #### [facility] [address] [place] [address] PTon 09-09-2020 INR Coag (PPP) [Relative time] 1.9 {INR} Invalid Interpretation Code [facility] Comment on above: Result Comment: INR results are specifically intended to assess patients stabilized on long-term Anticoagulation therapy suggested INR?s ?Less Intensive Anticoagulation? 2.0 ? 3.0 Conventional Range 3.0 ? 4.5 Performed By: #### 2 [id number], [id number] ####[facility] [id number] [place] [address] PT Coag (PPP) [Time] 22.8 second(s) High 10.2-12.9 [facility] Comment on above: Performed By: #### 2 [id number], [id number] ####[facility] [address] [place] [address] PT & PTTon 09-09-2020 aPTT Coag (PPP) [Time] 31.7 second(s) Normal 25.1-36.5 [facility] Comment on above: Result Comment: Hepa rin therapeutic range (represented by Anti-Factor Xa activity of 0.2 - 0.4 U/mL) corresponds to PTT of 56.6 - 109.0 sec. Performed By: #### 1 [id number], 6926759, 7272597, 4594686, 55492786, 70279987, 9343041, 33452159, 87354110 ####[facility] [id number] [place] [address] INR Coag (PPP) [Relative time] 2.0 {INR} Invalid Interpretation Code [facility] Comment on above: Result Comment: INR results are specifically intended to assess patients stabilized on long-term Anticoagulation therapy suggested INR?s ?Less Intensive Anticoagulation? 2.0 ? 3.0 Conventional Range 3.0 ? 4.5 Performed By: #### 1 [id number], 5273276, 0450829, 6251559, 43133038, 23061274, 4762166, 83538152, 17265871 ####[facility] [id number] [place] [address] PT Coag (PPP) [Time] 23.6 second(s) High 10.2-12.9 [facility] Comment on above: Performed By: #### 1 [id number], 0015897, 8545960, 3001803, 50140022, 15964449, 1750766, 22201937, 85201092 ####[facility] [address] [place] [address] PTTon 09-09-2020 aPTT Coag (PPP) [Time] 30.4 second(s) Normal 25.1-36.5 [facility] Comment on above: Result Comment: Hepa rin therapeutic range (represented by Anti-Factor Xa activity of 0.2 - 0.4 U/mL) corresponds to PTT of 56.6 - 109.0 sec. Performed By: #### 2 [id number], 5382243 ####[facility] [id number] [place] [address] Progress Note-Nurseon 2019 Progress Note-Nurse Pt care report provi ded to JARRET Hirsch. Pts family member, Rosenda updated on pt status. Presently awaiting [place] [facility] [place] [facility] [address] Normal [facility] Progress Note-Nurse Pt care report alan d to [facility] [employer] BALANCER Zach, advised of family contact information and will send SNF paperwork with patient. Normal [facility] Progress Note-Nurse Pts daughter, Rosenda updated on pt transfer and condition. Rosenda: [phone] Pts family sts pt is under extreme stress, pts spouse yesterday due to COVID infection. Normal [facility] Progress Note-Nurse Pts son updated on p t condition, presently awating updated order set. Pt returns from CT, RT at bedside for high flow o2 placement. Normal [facility] Progress Note-Nurse IV ABx completed at this time, pt to CT Normal [facility] Progress Note-Nurse Pt c/o increased dys pnea, spo2 reading 89% oxygen increased to 6lpm, nasal cannula. made aware, requests RT for high flow oxygen therapy Normal [facility] Progress Note-Nurse Advised per CT that IV no longer infuses/flushes, await IV access at this time via US. Normal [facility] Progress Note-Nurse Pt to imaging at thi s time. Normal [facility] Troponin 0 Hr.on 09-09-2020 Troponin I.cardiac [Mass/Vol] 10.10 pg/mL Normal 10.10-27.10 [facility] Comment on above: Result Comment: The 95% CI (Confidence Interval) PPV (Positive Predictive Value) for myocardial infarction in females is 38 pg/mL, in males 51 pg/mL. The results should be used in conjunction with clinical conditions of myocardial infarction. ([employer] High Sensitivity Troponin I Instructions For Use, Uziel Umair, April 2018) Performed By: #### 1 [id number], 7842023, 4267086, 4764204, 41062428, 47499161, 8651375, 93314901, [id number] ####[facility] [id number] [place] [address] Troponin 3 Hr.on 09-09-2020 Troponin I.cardiac [Mass/Vol] 20.20 pg/mL Normal 10.10-27.10 [facility] Comment on above: Result Comment: The 95% CI (Confidence Interval) PPV (Positive Predictive Value) for myocardial infarction in females is 38 pg/mL, in males 51 pg/mL. The results should be used in conjunction with clinical conditions of myocardial infarction. ([employer] [place] High Sensitivity Troponin I Instructions For Use, [employer], April 2018) Performed By: #### 1 [id number] ####[facility] [id number] [place] [address] Troponin 6 Hr.on 09-09-2020 Troponin I.cardiac [Mass/Vol] 37.60 pg/mL High 10.10-27.10 [facility] Comment on above: Result Comment: The 95% CI (Confidence Interval) PPV (Positive Predictive Value) for myocardial infarction in females is 38 pg/mL, in males 51 pg/mL. The results should be used in conjunction with clinical conditions of myocardial infarction. ([employer] [place] High Sensitivity Troponin I Instructions For Use, [employer], April 2018) Performed By: #### 1 [id number] #### [facility] [address] [place] [address] XR Chest Single Viewon 09-09 XR Chest [...] DO Transcribed by: MATTHEW Technologist: JAI Normal [facility] eGFRon 09-09-2020 GFR/1.73 sq M.predicted among blacks MDRD (S/P/Bld) [Vol rate/Area] 59 mL/min/1.73 m2 Normal >=59 [facility] Comment on above: Order Comment: Order added by Discern Expert. Result Comment: eGFR is race adjusted. AA=. Performed By: #### 1 [id number], 7042758, 8985339, 0648980, 74394948, 64258124, 5235401, 49990028, 68314754 #### [facility] [address] [place] [address] GFR/1.73 sq M.predicted among non-blacks MDRD (S/P/Bld) [Vol rate/Area] 48 mL/min/1.73 m2 Low >=59 [facility] Comment on above: Order Comment: Order added by Discern Expert. Result Comment: Supervisor Quilting les kidney disease could be indicated at eGFR's of less than 60 mL/min/1.73m2. Kidney failure is indicated at less than 15 mL/min/1.73m2. Performed By: #### 1 [id number], 8484073, 5462486, 6820549, 11346041, 49388637, 3158880, 34090054, [id number] #### [facility] [address] [place] [address] Vital Signs Date Time Vital Sign Value Performing Clinician Facility 11-25-2023 14:38-0500 Body height 162.6 cm Sandeep Lenz MD Work Phone: [facility] 11-25-2023 14:38-0500 Body temperature 97.5 [degF] Sandeep Lenz MD Work Phone: [facility] 11-25-2023 14:38-0500 Body weight 63.9 kg Sandeep Lenz MD Work Phone: [facility] 11-25-2023 14:38-0500 Diastolic blood pressure 63 mm[Hg] Sandeep Lenz MD Work Phone: [facility] 11-25-2023 14:38-0500 Heart rate 70 /min Sandeep Lenz MD Work Phone: [facility] 11-25-2023 14:38-0500 Respiratory rate 18 /min Sandeep Lenz MD Work Phone: [facility] 11-25-2023 14:38-0500 SaO2% (BldA) [Mass fraction] 94 % Sandeep Lenz MD Work Phone: [facility] 11-25-2023 14:38-0500 Systolic blood pressure 144 mm[Hg] Sandeep Lenz MD Work Phone: [facility] 05-20-2023 15:10-0400 Body height 162.6 cm Sandeep Lenz MD Work Phone: [facility] 05-20-2023 15:10-0400 Body temperature 97.81 [degF] Sandeep Lenz MD Work Phone: [facility] 05-20-2023 15:10-0400 Body weight 58.88 kg Sandeep Lenz MD Work Phone: [facility] 05-20-2023 15:10-0400 Diastolic blood pressure 72 mm[Hg] Sandeep Lenz MD Work Phone: [facility] 05-20-2023 15:10-0400 Heart rate 68 /min Sandeep Lenz MD Work Phone: [facility] 05-20-2023 15:10-0400 Respiratory rate 16 /min Sandeep Lenz MD Work Phone: [facility] 05-20-2023 15:10-0400 SaO2% (BldA) [Mass fraction] 99 % Sandeep Lenz MD Work Phone: [facility] 05-20-2023 15:10-0400 Systolic blood pressure 168 mm[Hg] Sandeep Lenz MD Work Phone: [facility] 04-30-2023 14:20-0400 Body temperature 97.59 [degF] Chair Marcos Work Phone: [facility] 04-30-2023 14:20-0400 Diastolic blood pressure 72 mm[Hg] Chair Marcos Work Phone: [facility] 04-30-2023 14:20-0400 Heart rate 64 /min Chair [place] Work Phone: [facility] 04-30-2023 14:20-0400 Respiratory rate 16 /min Chair [place] Work Phone: [facility] 04-30-2023 14:20-0400 SaO2% (BldA) [Mass fraction] 98 % Chair [place] Work Phone: [facility] 04-30-2023 14:20-0400 Systolic blood pressure 147 mm[Hg] Chair [place] Work Phone: [facility] 04-29-2023 15:21-0400 Body height 162.6 cm Sandeep Lenz MD Work Phone: [facility] 04-29-2023 15:21-0400 Body temperature 97 [degF] Sandeep Lenz MD Work Phone: [facility] 04-29-2023 15:21-0400 Body weight 58.24 kg Sandeep Lenz MD Work Phone: [facility] 04-29-2023 15:21-0400 Diastolic blood pressure 66 mm[Hg] Sandeep Lenz MD Work Phone: [facility] 04-29-2023 15:21-0400 Heart rate 66 /min Sandeep Lenz MD Work Phone: [facility] 04-29-2023 15:21-0400 Respiratory rate 16 /min Sandeep Lenz MD Work Phone: [facility] 04-29-2023 15:21-0400 SaO2% (BldA) [Mass fraction] 96 % Sandeep Lenz MD Work Phone: [facility] 04-29-2023 15:21-0400 Systolic blood pressure 153 mm[Hg] Sandeep Lenz MD Work Phone: [facility] 05-19-2022 11:30-0400 Diastolic blood pressure 80 mm[Hg] [facility] 05-19-2022 11:30-0400 Heart rate 68 /min [facility] 05-19-2022 11:30-0400 Respiratory rate 16 /min [facility] 05-19-2022 11:30-0400 SaO2% (BldA) [Mass fraction] 98 % [facility] 05-19-2022 11:30-0400 Systolic blood pressure 175 mm[Hg] [facility] 01-08-2022 13:03-0400 Body height 162.6 cm Sandeep Lenz MD Work Phone: [facility] 01-08-2022 13:03-0400 Body temperature 97.39 [degF] Sandeep Lenz MD Work Phone: [facility] 01-08-2022 13:03-0400 Body weight 64.23 kg Sandeep Lenz MD Work Phone: [facility] 01-08-2022 13:03-0400 Diastolic blood pressure 69 mm[Hg] Sandeep Lenz MD Work Phone: [facility] 01-08-2022 13:03-0400 Heart rate 68 /min Sandeep Lenz MD Work Phone: [facility] 01-08-2022 13:03-0400 Respiratory rate 16 /min Sandeep Lenz MD Work Phone: [facility] 01-08-2022 13:03-0400 SaO2% (BldA) [Mass fraction] 97 % Sandeep Lenz MD Work Phone: [facility] 01-08-2022 13:03-0400 Systolic blood pressure 150 mm[Hg] Sandeep Lenz MD Work Phone: [facility] 11-11-2021 13:00-0500 Diastolic blood pressure 69 mm[Hg] MD Eduardo Sharpe Work Phone: [facility] 11-11-2021 13:00-0500 Heart rate 65 /min MD Eduardo Sharpe Work Phone: [facility] 11-11-2021 13:00-0500 Respiratory rate 16 /min MD Eduardo Sharpe Work Phone: [facility] 11-11-2021 13:00-0500 SaO2% (BldA) [Mass fraction] 96 % MD Eduardo Sharpe Work Phone: [facility] 11-11-2021 13:00-0500 Systolic blood pressure 129 mm[Hg] MD Eduardo Sharpe Work Phone: [facility] 11-11-2021 12:00-0500 Body temperature 98 [degF] MD Eduardo Sharpe Work Phone: [facility] 11-11-2021 06:00-0500 Body weight 63 kg MD Eduardo Sharpe Work Phone: [facility] 11-10-2021 12:59-0500 Body height 163.83 cm MD Eduardo Sharpe Work Phone: [facility] 11-09-2021 18:45-0500 Body mass index (BMI) [Ratio] 23.8 kg/m2 MD Eduardo Sharpe Work Phone: [facility] Encounters Encounter Date Encounter Type Care Provider Facility Start: 11-25-2023 End: 11-25-2023 ambulatory EDUARDO SHARPE Facility:[facility] Start: 11-25-2023 End: 11-25-2023 Office outpatient visit 25 minutes Sandeep Lenz MD Work Phone: Hematology/Oncology Comment on above: Malignant neoplasm o f upper-outer quadrant of left breast in female, estrogen receptor positive (HCC) (Primary Dx); Stage 3 chronic kidney disease, unspecified whether stage 3a or 3b CKD (HCC); Breast screening; Encounter for screening mammogram for malignant neoplasm of breast; Hypercalcemia Start: 10-31-2023 [employer] Mark stout DO Work Phone: [facility] Start: 10-31-2023 [employer] Mark stout DO Work Phone: [facility] Start: 10-31-2023 End: 10-31-2023 ambulatory MARK ISABEL Not Available Start: 10-16-2023 End: 10-16-2023 ambulatory [facility] Start: 08-19-2023 End: 08-19-2023 ambulatory EDUARDO SHARPE Facility:[facility] Start: 08-19-2023 Telephone encounter Clemente Hull Hematology/Oncology Comment on above: Results Start: 07-02-2023 End: 07-02-2023 ambulatory EDUARDO SHARPE Facility:[facility] Start: 06-05-2023 End: 06-05-2023 ambulatory Bala Minnie Other [facility] Other Start: 06-05-2023 Telephone encounter Bala Hartman [facility] Start: 05-21-2023 Telephone encounter Clemente Hull Hematology/Oncology Comment on above: Results Start: 05-20-2023 End: 05-20-2023 ambulatory EDUARDO SHARPE Facility:[facility] Start: 05-20-2023 End: 05-20-2023 Office outpatient visit 25 minutes Sandeep Lenz MD Work Phone: Hematology/Oncology Comment on above: Hypercalcemia (Prima ry Dx); Malignant neoplasm of upper-outer quadrant of left breast in female, estrogen receptor positive (HCC); Stage 3 chronic kidney disease, unspecified whether stage 3a or 3b CKD (HCC) Start: 05-20-2023 Telephone encounter Sandeep bazan MD Work Phone: [facility] Comment on above: Referral Information (Nephrology) Start: 05-09-2023 Social Work Aleida Vargas PROPERTY CLAIMS MANAGER Hematolo gy/Oncology Start: 05-07-2023 Refill Sandeep aragon MD Work Phone: Hematology/Oncology Comment on above: Refill Request Start: 04-30-2023 End: 04-30-2023 Infusion Center Chair Nya Rodríguez Work Phone: Hematology/Oncology Comment on above: Hypercalcemia (Prima ry Dx); Other specified menopausal and perimenopausal disorders; Malignant neoplasm of upper-outer quadrant of left breast in female, estrogen receptor positive (HCC) Start: 04-29-2023 End: 04-29-2023 ambulatory EDUARDO SHARPE Facility:[facility] Start: 04-29-2023 End: 04-29-2023 Office outpatient [...] CKD (HCC) Start: 04-01-2023 End: 04-01-2023 ambulatory [facility] Start: 01-14-2023 End: 01-14-2023 ambulatory [facility] Start: 08-23-2022 End: 09-23-2022 ambulatory SHAIKH [...] Start: 05-19-2022 End: 05-21-2022 ambulatory UNKNOWN PROVIDER [facility] Start: 05-19-2022 End: 05-19-2022 ambulatory [facility] Triage, Treat and Transport Start: 05-19-2022 End: 05-19-2022 Emergency department patient visit [facility] Emergency Triage, Treat and Transport Comment on above: Arrived Start: 05-09-2022 End: 05-10-2022 ambulatory EDUARDO SHARPE Facility:[facility] Start: 05-07-2022 End: 05-08-[address] [...] Dx) Start: 01-05-2022 End: 01-06-2022 ambulatory SANDEEP ROBISONRAFA Facility:[facility] Start: 12-27-2021 End: 12-27-2021 Patient encounter procedure MD Eduardo Sharpe Work Phone: [facility] [place] Start: 12-22-2021 End: 01-19-[address] EDUARDO SHARPE Facility:[facility] Start: 11-30-2021 End: 11-30-2021 ambulatory Brayden Hernandez Other [facility] Other Start: 11-30-2021 Office outpatient vi sit 15 minutes Brayden Hernandez [facility] Start: 11-21-2021 End: 12-21-2021 ambulatory SHAIKH Barbara AGUIAR Facility:[facility] Start: 11-17-2021 End: 11-17-2021 Patient encounter procedure MD Eduardo Sharpe Work Phone: [facility] [place] Start: 11-09-2021 End: 11-11-2021 Evaluation and management of inpatient MD Eduardo Sharpe Work Phone: [facility] [place] [facility] Start: 11-09-2021 End: 11-09-2021 ambulatory MIKALA HIGGINS Facility:[facility] Start: 10-24-2021 End: 11-20-2021 ambulatory SHAIKH Barbara AGUIAR Facility:[facility] Start: 09-28-2021 End: 10-23-2021 ambulatory TIBURCIO HENDERSON Facility:[facility] Procedures Date Procedure Procedure Detail Performing Clinician Start: 10-31-2023 End: 10-31-2023 Oph bmtry prtl coher intrfrmtry io lens pwr connie Mark Isabel DO Work Phone: Start: 10-31-2023 End: 10-31-2023 Oph medical xm&eval compre new pt 1/> vst [...] Treatment Date Care Activity Detail Author Start: 11-24-2026 [facility] Start: 08-19-2026 [facility] Start: 05-20-2026 DIABETES SCREEN DIABETES SCREEN [facility] Start: 05-20-2026 [facility] Start: 04-30-2026 DIABETES SCREEN DIABETES SCREEN [facility] Start: 04-29-2026 DIABETES SCREEN DIABETES SCREEN [facility] Start: 01-08-2025 DIABETES SCREEN DIABETES SCREEN [facility] Start: 11-24-2024 End: 02-23-2025 Cancer Ag 15-3 [Units/volume] in Serum or Plasma CA 15-3 BLD Lab Routine Malignant neoplasm of upper-outer quadrant of left breast in female, estrogen receptor positive (HCC) Breast screening Expected: 11/24/2024 (Approximate), Expires: 02/23/2025 [facility] Work Phone: Comment on above: Expected: 11/24/2024 (Approximate), Expires: 02/23/2025 Start: 11-24-2024 End: 02-23-2025 Cancer Ag 27-29 [Units/volume] in Serum or Plasma CA 27.29 BLOOD Lab Routine Malignant neoplasm of upper-outer quadrant of left breast in female, estrogen receptor positive (HCC) Breast screening Expected: 11/24/2024 (Approximate), Expires: 02/23/2025 [facility] Work Phone: Comment on above: Expected: 11/24/2024 (Approximate), Expires: 02/23/2025 Start: 11-24-2024 End: 02-23-2025 CBC W Auto Differential panel - Blood CBC + DIFF Lab Routine Malignant neoplasm of upper-outer quadrant of left breast in female, estrogen receptor positive (HCC) Breast screening Expected: 11/24/2024 (Approximate), Expires: 02/23/2025 [facility] Work Phone: Comment on above: Expected: 11/24/2024 (Approximate), Expires: 02/23/2025 Start: 11-24-2024 Complete blood count Hemoglobin/Swapnil tocrit [facility] Start: 11-24-2024 End: 02-23-2025 Comprehensive metabolic 2000 panel - Serum or Plasma COMP METABOLIC PANEL Lab Routine Malignant neoplasm of upper-outer quadrant of left breast in female, estrogen receptor positive (HCC) Breast screening Expected: 11/24/2024 (Approximate), Expires: 02/23/2025 [facility] Work Phone: Comment on above: Expected: 11/24/2024 (Approximate), Expires: 02/23/2025 Start: 11-24-2024 Creatinine measurement Serum Creatin ine [facility] Start: 10-27-2024 End: 12-24-2024 MG Breast Screening SHANNEN SCREENING Radiology Routine Malignant neoplasm of upper-outer quadrant of left breast in female, estrogen receptor positive (HCC) Breast screening Encounter for screening mammogram for malignant neoplasm of breast Expected: 10/27/2024 (Approximate), Expires: 12/24/2024 [facility] Work Phone: Comment on above: Expected: 10/27/2024 (Approximate), Expires: 12/24/2024 Start: 08-19-2024 Hemoglobin/Hematocrit Hemoglobin/Hem [facility] Start: 08-19-2024 Serum Creatinine Serum Creatinine Cl [facility] Start: 05-20-2024 HEMOGLOBIN/HEMATOCRIT HEMOGLOBIN/HEM [facility] Start: 05-20-2024 SERUM CREATININE SERUM CREATININE [facility] Start: 04-30-2024 HEMOGLOBIN/HEMATOCRIT HEMOGLOBIN/HEM [facility] Start: 04-30-2024 SERUM CREATININE SERUM CREATININE [facility] Start: 11-28-2023 End: 11-28-2023 Patient encounter procedure 11/28/2023 8:10 AM EST Procedure Visit [facility] Mark Isabel, DO [address] [place] [address] [facility] Start: 11-25-2023 End: 02-24-2024 Cancer Ag 27-29 [Units/volume] in Serum or Plasma CA 27.29 BLOOD Lab Routine Stage 3 chronic kidney disease, unspecified whether stage 3a or 3b CKD (HCC) Malignant neoplasm of upper-outer quadrant of left breast in female, estrogen receptor positive (HCC) Breast screening Encounter for screening mammogram for malignant neoplasm of breast Hypercalcemia Expected: 11/25/2023, Expires: 02/24/2024 [facility] Work Phone: Comment on above: Expected: 11/25/2023 , Expires: 02/24/2024 Start: 11-25-2023 End: 02-24-2024 CBC W Auto Differential panel - Blood CBC + DIFF Lab Routine Stage 3 chronic kidney disease, unspecified whether stage 3a or 3b CKD (HCC) Malignant neoplasm of upper-outer quadrant of left breast in female, estrogen receptor positive (HCC) Breast screening Encounter for screening mammogram for malignant neoplasm of breast Hypercalcemia Expected: 11/25/2023, Expires: 02/24/2024 [facility] Work Phone: Comment on above: Expected: 11/25/2023 , Expires: 02/24/2024 Start: 11-25-2023 End: 02-24-2024 Comprehensive metabolic 2000 panel - Serum or Plasma COMP METABOLIC PANEL Lab Routine Stage 3 chronic kidney disease, unspecified whether stage 3a or 3b CKD (HCC) Malignant neoplasm of upper-outer quadrant of left breast in female, estrogen receptor positive (HCC) Breast screening Encounter for screening mammogram for malignant neoplasm of breast Hypercalcemia Expected: 11/25/2023, Expires: 02/24/2024 [facility] Work Phone: Comment on above: Expected: 11/25/2023 , Expires: 02/24/2024 Start: 09-23-2023 Advance Directive Discussion Advance Directive Discussion [facility] Start: 09-23-2023 Depression Assessment Depression Ass [facility] Start: 05-24-2023 Influenza vaccination [facility] Start: 04-29-2023 End: 06-29-2023 Parathyrin related protein [Moles/volume] in Serum or Plasma PTH RELATED PEPTIDE Lab Routine Malignant neoplasm of upper-outer quadrant of left breast in female, estrogen receptor positive (HCC) Hypercalcemia Expected: 04/29/2023, Expires: 06/29/2023 [facility] Work Phone: Comment on above: Expected: 04/29/2023 , Expires: 06/29/2023 Start: 04-29-2023 End: 06-29-2023 PTH, INTACT (WITHOUT CALCIUM) PTH, INTACT (WITHOUT CALCIUM) Lab Routine Malignant neoplasm of upper-outer quadrant of left breast in female, estrogen receptor positive (HCC) Hypercalcemia Expected: 04/29/2023, Expires: 06/29/2023 [facility] Work Phone: Comment on above: Expected: 04/29/2023 , Expires: 06/29/2023 Start: 09-23-2022 ADVANCE DIRECTIVE DISCUSSION ADVANCE DIRECTIVE DISCUSSION [facility] Start: 09-23-2022 DEPRESSION ASSESSMENT DEPRESSION ASS ESSMENT [facility] Start: 07-09-2022 End: 09-08-2022 25-hydroxyvitamin D3 [Mass/volume] in Serum or Plasma VITAMIN D 25 HYDROXY Lab Routine Malignant neoplasm of upper-outer quadrant of left breast in female, estrogen receptor positive (HCC) Encounter for screening for osteoporosis Hypercalcemia Expected: 07/09/2022 (Approximate), Expires: 09/08/2022 [facility] Work Phone: Comment on above: Expected: 07/09/2022 (Approximate), Expires: 09/08/2022 Start: 07-09-2022 End: 09-08-2022 Calcitriol [Mass/volume] in Serum or Plasma VITAMIN D1 25-DIHYDR Lab Routine Malignant neoplasm of upper-outer quadrant of left breast in female, estrogen receptor positive (HCC) Encounter for screening for osteoporosis Expected: 07/09/2022 (Approximate), Expires: 09/08/2022 [facility] Work Phone: Comment on above: Expected: 07/09/2022 (Approximate), Expires: 09/08/2022 Start: 07-09-2022 End: 06-30-2023 CBC W Auto Differential panel - Blood CBC + DIFF Lab Routine Malignant neoplasm of upper-outer quadrant of left breast in female, estrogen receptor positive (HCC) Encounter for screening for osteoporosis Expected: 07/09/2022 (Approximate), Expires: 06/30/2023 [facility] Work Phone: Comment on above: Expected: 07/09/2022 (Approximate), Expires: 06/30/2023 Start: 07-09-2022 End: 06-30-2023 Comprehensive metabolic 2000 panel - Serum or Plasma COMP METABOLIC PANEL Lab Routine Malignant neoplasm of upper-outer quadrant of left breast in female, estrogen receptor positive (HCC) Encounter for screening for osteoporosis Expected: 07/09/2022 (Approximate), Expires: 06/30/2023 [facility] Work Phone: Comment on above: Expected: 07/09/2022 (Approximate), Expires: 06/30/2023 Start: 06-23-2022 Influenza vaccination Influenza Vacc ine (#1) [facility] Start: 05-24-2022 Influenza vaccination INFLUENZA (#1) [facility] Start: 09-23-2021 ADVANCE DIRECTIVE DISCUSSION ADVANCE DIRECTIVE DISCUSSION [facility] Start: 09-23-2021 DEPRESSION ASSESSMENT DEPRESSION ASS ESSMENT [facility] Start: 03-10-2021 Adult depression screening assessment DEPRESSION SCREENING [facility] Start: 06-17-2019 Pneumococcal Vaccine : 65+ (2 - PPSV23 or PCV20) Pneumococcal Vaccine: 65+ (2 - PPSV23 or PCV20) [facility] Start: 06-17-2019 PNEUMOCOCCAL: 65+ (2 - PPSV23 if available, else PCV20) PNEUMOCOCCAL: 65+ (2 - PPSV23 if available, else PCV20) [facility] Start: 06-17-2019 PNEUMOCOCCAL: 65+ (2 - PPSV23 or PCV20) PNEUMOCOCCAL: 65+ (2 - PPSV23 or PCV20) [facility] Start: 2009 BONE DENSITY BONE DENSITY [facility] Start: 2009 Bone Density Screening Bone Density Screening [facility] Start: 2009 Pneumococcal vaccination Pneumococcal Vaccine(s) (65+ yrs) (1 - PCV) [facility] Start: 2009 PNEUMOVAX AGE 65 AND OVER WITH 5YR LOOKBACK (#1) PNEUMOVAX AGE 65 AND OVER WITH 5YR LOOKBACK (#1) [facility] Start: 2009 [facility] Start: 2004 RSV Vaccine (1 - 1-d ose 60+ series) RSV Vaccine (1 - 1-dose 60+ series) [facility] Start: 1994 Shingles (RZV) Vacci ne (1 of 2) Shingles (RZV) Vaccine (1 of 2) [facility] Start: 1994 SHINGRIX VACCINE (1 of 2) SHINGRIX VACCINE (1 of 2) [facility] Start: 1963 Urine microalbumin profile [facility] Start: 1962 ANNUAL PCP TEAM TANKMAN LES DISEASE VISIT ANNUAL PCP TEAM CHRONIC DISEASE VISIT [facility] Start: 1962 HEPATITIS C SCREENING HEPATITIS C SC DON [facility] Start: 1962 Hepatitis C screening Hepatitis C An tibody [facility] Start: 1962 Tetanus + diphtheria + acellular pertussis vaccine (product) Tdap Booster [facility] Start: 1956 COVID-19 VACCINE (1) COVID-19 VACCIN E (1) [facility] Start: 04-09-1945 COVID-19 Vaccine (#1) COVID-19 Vacci ne (#1) [facility] End: 05-28-2024 Bone &/joint imaging whole body NM BONE WHOLE BODY Radiology Routine Malignant neoplasm of breast in female, estrogen receptor positive, unspecified laterality, unspecified site of breast (HCC) 1 Occurrences starting 04/29/2023 until 05/28/2024 [facility] Work Phone: Comment on above: 1 Occurrences starti ng 04/29/2023 until 05/28/2024 End: 05-19-2024 Calcium [Mass/volume] in Serum or Plasma CALCIUM TOTAL BLD Lab Routine Hypercalcemia Malignant neoplasm of upper-outer quadrant of left breast in female, estrogen receptor positive (HCC) Stage 3 chronic kidney disease, unspecified whether stage 3a or 3b CKD (HCC) Every 6 weeks for 9 Occurrences starting 05/20/2023 until 05/19/2024 [facility] [employer] Work Phone: Comment on above: Every 6 [...] starting 05/20/2023 until 05/19/2024, 1 completed [facility] [employer] Work Phone: Comment on above: Every 6 [...] starting 05/20/2023 until 05/19/2024, 1 completed [facility] [employer] Work Phone: Comment on above: Every 6 [...] Occurrences starting 05/20/2023 until 05/19/2024, 1 completed [facility] [employer] Work Phone: Comment on above: Every 6 weeks for 9 Occurrences starting 05/20/2023 until 05/19/2024, 1 completed Parathyrin related protein [Moles/volume] in Serum or Plasma PTH RELATED PEPTIDE Lab Routine Malignant neoplasm of upper-outer quadrant of left breast in female, estrogen receptor positive (HCC) Hypercalcemia 04/30/2023 3:55 PM EDT [facility] Work Phone: Patient Education Heart Healthy Diet [facility] Work Phone: Patient referral [facility] Immunizations Immunization Date Immunization Notes Care Provider [facility] 07-11-2022 influenza, high dose seasonal, preservative-free Clemente Srivastava RN [facility] 07-11-2022 pneumococcal polysaccharide vaccine, 23 valent Clemente Srivastava RN [facility] 07-11-2022 influenza virus vacc ine, unspecified formulation Sandeep Lenz MD Work Phone: [facility] 07-07-2021 influenza, high-dose , quadrivalent vaccine (FLUZONE HIGH DOSE QUADRIVALENT) Sandeep Lenz MD Work Phone: [facility] 07-07-2021 unknown vaccine or i mmune globulin Clemente Srivastava RN [facility] 06-12-2021 influenza, high dose seasonal, preservative-free Clemente Srivastava RN [facility] 06-22-2020 influenza, high dose seasonal, preservative-free Sandeep Lenz MD Work Phone: [facility] 06-15-2020 Seasonal trivalent influenza vaccine, adjuvanted, preservative free Sandeep Lenz MD Work Phone: [facility] 06-17-2018 influenza, high dose seasonal, preservative-free Sandeep Lenz MD Work Phone: [facility] 06-17-2018 pneumococcal conjuga te vaccine, 13 valent Sandeep Lenz MD Work Phone: [facility] 07-09-2017 influenza, high dose seasonal, preservative-free Sandeep Lenz MD Work Phone: [facility] 07-09-2017 pneumococcal conjuga te vaccine, 13 valent Sandeep Lenz MD Work Phone: [facility] Payers Date Payer Category Payer Unknown MEDICA RE SUPPLEMENT [id number] 2014-Present [phone] [address] [address] [place] [address] Indemnity [id number] 2014 Unknown [id number] 2009 Medicare MEDICARE MEDICAR E A AND B [id number] 2009-Present [phone] [address] [address] [place] [address] Medicare [id number] 2009 Medicare [id number] [id number] 1959 Medicare [id number] 1959 Unknown [id number] 1959 Unknown [id number] 1944 Unknown [id number] 2.16.840.1.444980.3.579.2.647 1944 Unknown [id number] 2.16.840.1.066930.3.579.2.732 1944 Unknown [id number] 2.16.840.1.715881.3.579.2.593 1944 Unknown [id number] 2.16.840.1.663526.3.579.2.593 1944 Unknown [id number] 2.16.840.1.806913.3.579.2.593 1944 Unknown [id number] 2.16.840.1.329775.3.579.2.593 1944 Unknown [id number] 2.16.840.1.861957.3.579.2.593 1944 Unknown [id number] 2.16.840.1.748994.3.579.2.593 1944 Unknown [id number] 2.16.840.1.908360.3.579.2.593 1944 Unknown [id number] 2.16.840.1.564122.3.579.2.593 1944 Unknown [id number] 2.16.840.1.511225.3.579.2.593 1944 Unknown [id number] 2.16.840.1.753651.3.579.2.593 1944 Unknown [id number] 2.16.840.1.035014.3.579.2.593 1944 Unknown [id number] 2.16.840.1.757157.3.579.2.593 1944 Unknown [id number] 2.16.840.1.102998.3.579.2.593 1944 Unknown [id number] 2.16.840.1.255421.3.579.2.593 1944 Unknown [id number] 2.16.840.1.903494.3.579.2.593 1944 Unknown [id number] 2.16.840.1.171013.3.579.2.593 1944 Unknown [id number] 2.16.840.1.965273.3.579.2.593 1944 Unknown [id number] 2.16.840.1.504097.3.579.2.593 1944 Unknown [id number] 2.16.840.1.198823.3.579.2.593 1944 Unknown [id number] 2.16.840.1.008829.3.579.2.593 1944 Unknown [id number] 2.16.840.1.666103.3.579.2.593 1944 Unknown [id number] 2.16.840.1.781584.3.579.2.593 1944 Unknown [id number] 2.16.840.1.693051.3.579.2.593 1944 Unknown [id number] 2.16.840.1.263340.3.579.2.125 9 Medicare Self Pay [id number] Self-pay Self Pay [id number] Unknown [id number] Unknown [id number] Social History Date Type Detail Facility Start: 11-10-2021 End: 04-29-2023 Tobacco smoking status SDIS Never smoked tobacco (finding) [facility] Start: 1945 Sex Assigned At [facility] Start: 06-12-2018 End: 04-29-2023 Tobacco use and exposure Smokeless tobacco non-user [facility] Start: 01-08-2022 End: 11-25-2023 Alcohol intake Current drinker of alcohol (finding) [facility] Start: 06-12-2018 History SDOH Alcohol Comment very rare [facility] Start: 1945 Sex Assigned At Not on file [facility] Start: 12-29-2021 End: 01-08-2022 Exposure to SARS-CoV-2 (event) Not sure [facility] Start: 04-29-2023 End: 11-25-2023 Sex Assigned At [facility] Tobacco smoking status NHIS Tobacco smoking consumption unknown [facility] Start: 04-29-2023 End: 11-25-2023 History of Social function [facility] Adult Depression Screening Assessment 0 [facility] NEGATED: Highlighted rowStart: NINF History of tobacco use Passive smoker [facility] Goals Date Patient Goal Desired Activity /State Functional Status Date Assessment Result Facility 11-09-2021 Functional status Patient at Baseline [facility] Work Phone: Mental Status Date Assessment Result Facility 11-09-2021 Cognitive function Cognitive Sta tus Patient at Baseline [facility] Work Phone: Clinical Notes 09-16-2020 to 11-25-2023 Patient InstructionsAbSandeep herman MD - 11/25/2023 2:15 PM EST Note Date & Type Note Facility 11-25-2023 Note HNO ID: [id number] Author: SANDEEP LENZ MD Service: ? Author Type: Physician Type: Progress Notes Filed: 11/25/2023 19:36 Note Text: NAME: Andrew Barros CLINIC NO.: [id number] DATE OF SERVICE: November 25, 2023 (Eduardo) Some elements in this clinic note that are critical to medical decision making have been carefully reviewed and included from a prior clinic note dated: August 19, 2023 (Eduardo) Referring Provider: Eduardo Sharpe Additional Clinicians involved in Andrew Duraners's care: DIAGNOSIS: History of Breast Cancer ASSESSMENT: 78 year old woman with Left breast upper outer quadrant, invasive ductal carcinoma, ER postive, MD positive, Her2 lauren negative; 1.6 cm x [...] Stopped taking Calcium - level normalized. PLAN: RTC in 1 year - repeat labs - Exam same day. Repeat Mammogram prior to return Stop Arimidex. HPI: CASE HISTORY: Reverse Chronological Order 08/28/2023 - Bilateral Mammogram Diagnostic category 2 Benign 05/02/2023 - Bone Scan - negative for osseous mets. 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 04/24/2021 - DEXA scan World Health Organization classification: Normal-low fracture risk. 01/04/2021 - Mammograms at [facility] Bi-Rads 2 benign. 09/26/2018 - Started arimidex 09/10/2018 - Completed radiation 06/05/2018 - L breast lumpectomy and SNB Updated Visit, November 25, 2023: Returns with Sugey - is getting overwhelmed with changes in medical therapy for er kidneys and heart. Kidey function continues to decline now at Stage 4 kidney failure. Focus on kidney and bladder dysfunction. Likely needs nephrology. Has to void every 2 hours at night. Updated Visit, August 19, 2023: Here with [...] need to. Updated Visit, May 20, 2023: Sugey her daughter is with her. Unclear [...] with no new issues, problems or concerns. Updated Visit, April 20, 2021: Andrew is [...] and to start on Vit-D + Calcium. REVIEW OF SYSTEMS Per HPI and otherwise negative by full review of organ systems. ECOG PERFORMANCE STATUS: 0 PHYSICAL EXAMINATION: Vitals: BP 144/63 Pulse 70 Temp (Src) 97.5 (Temporal) Resp 18 Ht 5' 4.016 (1.63m) Wt 140 lb 14 oz (63.9kg) SpO2 94% BMI 24.17 kg/(m2). Body surface area is 1.7 meters squared. Exam limited to gross visualization where appropriate. Gen.: This is an age-appropriate patient in no acute distress. Head: Appears atraumatic with no visible lesions. Eyes: Pupils equally round and reactive to light, extraocular muscles (more content not included)... [facility] 11-25-2023 Instructions Sandeep Lenz MD - 11/25/2023 3:25 PM EST RTC in 1 year - repeat labs - Exam same day. Repeat Mammogram prior to return Stop Arimidex. documented in this encounter [facility] 11-25-2023 History of Presen t illness Narrative Images from the original note were not included. NAME: PapoAndrew [facility] NO.: [id number] DATE OF SERVICE: November 25, 2023 (Eduardo) Some elements in this clinic note that are critical to medical decision making have been carefully reviewed and included from a prior clinic note dated: August 19, 2023 (Eduardo) Referring Provider: Eduardo Sharpe Additional Clinicians involved in Andrew Braros's care: DIAGNOSIS: History of Breast Cancer ASSESSMENT: 78 year old woman with Left breast upper outer quadrant, invasive ductal carcinoma, ER postive, MD positive, Her2 lauren negative; 1.6 cm x [...] Stopped taking Calcium - level normalized. PLAN: RTC in 1 year - repeat labs - Exam same day. Repeat Mammogram prior to return Stop Arimidex. HPI: CASE HISTORY: Reverse Chronological Order 08/28/2023 - Bilateral Mammogram Diagnostic category 2 Benign 05/02/2023 - Bone Scan - negative for osseous mets. 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 04/24/2021 - DEXA scan World Health Organization classification: Normal-low fracture risk. 01/04/2021 - Mammograms at [facility] Bi-Rads 2 benign. 09/26/2018 - Started arimidex 09/10/2018 - Completed radiation 06/05/2018 - L breast lumpectomy and SNB Updated Visit, November 25, 2023: Returns with Sugey - is getting overwhelmed with changes in medical therapy for er kidneys and heart. Kidey function continues to decline now at Stage 4 kidney failure. Focus on kidney and bladder dysfunction. Likely needs nephrology. Has to void every 2 hours at night. Updated Visit, August 19, 2023: Here with [...] need to. Updated Visit, May 20, 2023: Sugey her daughter is with her. Unclear [...] with no new issues, problems or concerns. Updated Visit, April 20, 2021: Andrew is [...] and to start on Vit-D + Calcium. REVIEW OF SYSTEMS Per HPI and otherwise negative by full review of organ systems. ECOG PERFORMANCE STATUS: 0 PHYSICAL EXAMINATION: Vitals: BP 144/63 Pulse 70 Temp (Src) 97.5 (Temporal) Resp 18 Ht 5' 4.016 (1.63m) Wt 140 lb 14 oz (63.9kg) SpO2 94% BMI 24.17 kg/(m^2). Body surface area is 1.7 meters squared. Exam limited to gross visualization [...] wounds or petechiae. ALLERGIES: ALLERGIES Allergen Reactions [id number]-Xqy-Quz Red* Unknown Other reaction(s): AOF MEDICATIONS: anastrozole [...] HR. potassium chloride (K-TAB) 10 mEq tablet omeprazole (PRILOSEC) 40 mg capsule Take 40 mg by mouth once daily. calcium-cholecalciferol, D3, (OSCAL+D 250) 250-125 mg-unit per tablet Take 1 tablet by mouth twice daily. ezetimibe (ZETIA) 10 mg tablet Take 10 mg by mouth once daily. carvedilol (COREG) 25 mg tablet Take 25 mg by mouth as directed. Takes 1 1/2 tablet 2x a day furosemide (LASIX) 40 mg tablet Take 40 mg by mouth once daily. rivaroxaban (XARELTO) 20 mg tablet Take 20 mg by mouth daily with dinner. (Patient not taking: Reported on 11/25/2023) Multivitamin capsule Take 1 capsule by mouth once daily. (Patient not taking: Reported on 11/25/2023) LABORATORY VALUES: WBC (k/uL) Date Value 11/25/2023 10.13 RBC (m/uL) Date Value 11/25/2023 3.99 Hemoglobin (g/dL) Date Value 11/25/2023 12.0 Hematocrit (%) Date Value 11/25/2023 37.2 MCV (fL) Date Value 11/25/2023 93.2 MCH (pg) Date Value 11/25/2023 30.1 MCHC (g/dL) Date Value 11/25/2023 32.3 RDW-CV (%) Date Value 11/25/2023 13.5 Platelet Count (k/uL) Date Value 11/25/2023 268 MPV (fL) Date Value 11/25/2023 10.8 Glucose (mg/dL) Date Value 11/25/2023 145 (H) BUN (mg/dL) Date Value 11/25/2023 32 (H) Creatinine (mg/dL) Date Value 11/25/2023 1.66 (H) Sodium (mmol/L) Date Value 11/25/2023 138 Potassium (mmol/L) Date Value 11/25/2023 4.5 Chloride (mmol/L) Date Value 11/25/2023 100 CO2 (mmol/L) Date Value 11/25/2023 24 Protein, Total (g/dL) Date Value 11/25/2023 7.7 Albumin (g/dL) Date Value 11/25/2023 4.5 Calcium, Total (mg/dL) Date Value 11/25/2023 10.2 Alkaline Phosphatase (U/L) Date Value 11/25/2023 98 Bilirubin, Total (mg/dL) Date Value 11/25/2023 0.5 AST (U/L) Date Value 11/25/2023 16 ALT (U/L) Date Value 11/25/2023 11 DIAGNOSIS: (C50.412, Z17.0) Malignant neoplasm of upper-outer quadrant of left breast in female, estrogen receptor positive (HCC) (primary encounter diagnosis) Plan: COMP METABOLIC PANEL, CBC + DIFF, CA 27.29 BLOOD, COMP METABOLIC PANEL, CBC + DIFF, CA 15-3 BLD, CA 27.29 BLOOD, SHANNEN SCREENING, CANCELED: CA 15-3 BLD (N18.30) Stage 3 chronic kidney disease, unspecified whether stage 3a or 3b CKD (HCC) Plan: COMP METABOLIC PANEL, CBC + DIFF, CA 27.29 BLOOD, CANCELED: CA 15-3 BLD (Z12.39) Breast screening Plan: COMP METABOLIC PANEL, CBC + DIFF, CA 27.29 BLOOD, COMP METABOLIC PANEL, CBC + DIFF, CA 15-3 BLD, CA 27.29 BLOOD, SHANNEN SCREENING, CANCELED: CA 15-3 BLD (Z12.31) Encounter for screening mammogram for malignant neoplasm of breast Plan: COMP METABOLIC PANEL, CBC + DIFF, CA 27.29 BLOOD, SHANNEN SCREENING, CANCELED: CA 15-3 BLD (E83.52) Hypercalcemia Plan: COMP METABOLIC PANEL, CBC + DIFF, CA 27.29 BLOOD, CANCELED: CA 15-3 BLD PAST MEDICAL HISTORY Diagnosis Date Atrial fibrillation (HCC) Brain bleed (HCC) Cancer (HCC) 05/2018 breast cancer Diabetes (HCC) Hyperlipidemia Hypertension Other specified menopausal and perimenopausal disorders 04/20/2021 PAST SURGICAL HISTORY Procedure Laterality Date CATARACT EXTRACTION HX Social History Tobacco Use Smoking status: Never Passive exposure: Never Smokeless tobacco: Never Substance Use Topics Alcohol use: Yes Comment: very rare Drug use: Not Currently History reviewed. No pertinent family history. I spent a total of 30 minutes on the date of the service which included preparing to see the patient, vujr-ow-[id number] patient care, completing clinical documentation, obtaining and/or reviewing separately obtained history, performing a medically appropriate examination, communicating results to the patient/family/caregiver and care coordination (not separately reported). Sandeep Lenz MD, CPE Hematology and Oncology Services Provided at: [place], [place] CC: Eduardo Sharpe MD [address] [facility] [address] documented in this encounter [facility] 11-25-2023 Evaluation note Diagnosis Malignant neoplasm of upper-outer quadrant of left breast in female, estrogen receptor positive (HCC)- Primary Stage 3 chronic kidney disease, unspecified whether stage 3a or 3b CKD (HCC) Breast screening Breast screening, unspecified Encounter for screening mammogram for malignant neoplasm of breast Other screening mammogram Hypercalcemia documented in this encounter [facility]02-08-2024 History of Present illness Narrative* Mark Isabel DO - 10/31/2023 10:45 AM EST Images from the original note were not [...] into the right eye 5 (five) times aday for 1 day Starting 1 day before [...] (CMS/HCC) Chronic kidney disease Glaucoma (CMS/HCC) Hypertension ([facility]/HCC) Type 2 diabetes mellitus ([facility]) Allergies Allergen Reactions Statins Other Reaction(s): joint [...] @ 11:13 AM Additional Tests Keratometry K1 [place] K2 [place] Right 43.50 153 44 63 Left 43.75 [...] Normal Normal Refraction Wearing Rx Sphere Cylinder [place] Add Right -1.00 +0.00 180 +2.50 Left +1.75 -0.50 036 +2.50 Manifest Refraction Sphere Cylinder [place] Right -0.25 -0.75 141 Left Final Rx Sphere Cylinder [place] Dist [place] Add Right -1.00 20/25 +2.50 [...] different lens options were explained including the ueu-aa-gdelsp fees for any upgrades. Intraocular lens (IOL) [...] been recommended that they receive a Hydrus Stentinsertion to better control/stabilize their sight threatening condition. R/B/A/E provided for the procedures listed above. This is deemed medically necessary due to their poor compliance and concern with progression of disease. They also state that their topical medication creates side effects thatforces them to remain poorly compliant. documented in [facility] encounterC[facility] [id number] NoteUT Cardiology - [facility] Subjective Andrew Barros is a 78 y.o. year old female patient being seen for 6 mo follow up PAD, mitral valve regurgitation, chronic diastolic heart failure, and hypertension. Lisinopril was stopped at last visit in February 2023, and doxazosin was started. She was admitted to [facility] 2 weeks ago for hypomagnesemia and [...] February 2023 she was admitted to the [facility] emergency room with epistaxis. She was [...] and regular rhythm. (more content not included)... [facility]11-27-2023 NoteHNO ID: [id number] Author: Sandeep Lenz MD Service: ? Author Type: Physician Type: Progress Notes Filed: 08/20/2023 7:07 AM Note Text: [facility] neph[facility] NAME: Andrew Barros CLINIC NO.: [id number] DATE OF SERVICE: August 19, 2023 (Eduardo) [...] outer quadrant, invasive ductal carcinoma, ER postive, MD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 Mammograms at [facility] on 01/04/2021 Bi-Rads 2 benign. __ [...] wounds or petechiae. ALLERGIES (more content not included)...[facility] [facility] Miscellaneous Notes* Telephone Encounter - Clemente Srivastava RN - 08/19/2023 2:47 PM EST Pt aware of Orlando's message. She denies any additional questions, needs or concerns at this time. Clemente Srivastava RN * Telephone Encounter - Clemente Srivastava RN - 08/19/2023 2:47 PM EST ----- Message from Sandeep Lenz MD sent at 08/19/2023 2:33 PM EST ----- Calcium janki normal. Kidney function is stable documented in this encounterToledo Hospital09-18-2023 Miscellaneous Notes* Telephone Encounter - Jennifer Aviles - 06/10/2023 12:53 PM EDT Called Nephrology office spoke with Paola. She states they did receive this referral and have patient scheduled to see Dr Hartman on 07/03 @ 3:00. Jennifer Covington * Telephone Encounter - Jennifer Aviles - 06/06/2023 2:31 PM EDT I called Neph office left message for their office we did re-fax this referral and I was calling priscila make sure they received it and see if patient has been scheduled yet. I asked their office to call us back with status of this referral. Jennifer Covington * [facility]23 10:35 AM EDT Records re-faxed to Nephrology. * Telephone Encounter - Jennifer Aviles - 06/05/2023 9:55 AM EDT Called spoke with Deepika at Nephrology office. She states she has not received this referral and has asked us to please refax it. LISA: Please refax this referral to Nephrology office. Thank You. Jennifer Covington * [facility] 05/30/2023 7:48 AM EDT Records faxed to Nephrology. * Telephone Encounter - Jennifer Aviles - 05/22/2023 8:46 AM EDT Lisa: Information ready for you. Jennifer Covington * Telephone Encounter - Samina Anderson - 05/20/2023 4:06 PM EDT Refer to nephrology for hypercalcemia and kidney failure Lisa/Yan: Can you please refer patient and follow up? Thanks! Samina Anderson documented in this encounterToledo Hospital08-29-2023 Miscellaneous Notes* Telephone Encounter - Clemente Srivastava RN - 05/21/2023 10:18 AM EDT Pt aware of results and denies any questions or concerns at this time. She was transferred to community health to set up Q 6 week lab appts as requested. Clemente Srivastava RN * Telephone Encounter - Clemente Srivastava RN - 05/21/2023 10:18 AM EDT ----- Message from Sandeep Lenz MD sent at 05/21/2023 10:15 AM EDT ----- Calcium was improved. - kidney function stable. CBC was normal. documented in this encounterToledo Hospital08-28-2023 NoteHNO ID: [id number] Author: Sandeep Lenz MD Service: ? Author Type: Physician Type: Progress Notes Filed: 05/30/2023 5:58 AM Note Text: Kathy nephrology NAME: Andrew Barros CLINIC NO.: [id number] DATE OF SERVICE: May 20, 2023 (Eduardo) [...] outer quadrant, invasive ductal carcinoma, ER postive, MD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 Mammograms at [facility] on 01/04/2021 Bi-Rads 2 benign. REVIEW [...] wounds or petechiae. ALLERGIES: ALLERGIES Allergen Reactions Igbfxwm-Gkn-Qxp Red* Unknown Other reaction(s): AOF MEDICATIONS: anastrozole [...] 12:10pm See your shae (more content not included)...[facility]08-28-2023 Instructions* Patient Instructions* Sandeep Lenz MD - 05/20/2023 3:59 PM EDT Continue Arimidex. Refer to nephrology for hypercalcemia and kidney failure Repeat labs today RTC in 3 months - repeat labs documented in this encounterToledo Hospital08-28-2023 History of Present illness Narrative* Sandeep Lenz MD - 05/20/2023 3:27 PM EDT Kathy nephrology NAME: PapoAndrew [facility] NO.: [id number] DATE OF SERVICE: May 20, 2023 (Abbatsheva) Some elements in this clinic note that are critical to medical decision making have been carefully reviewed and included from a prior clinic note dated: April 29, 2023 (Eduardo) Referring Provider: Eduardo Sharpe Additional Clinicians involved in Andrew Barros's care: CC: History of Breast Cancer ASSESSMENT: 77 year old woman with Left breast upper outer quadrant, invasive ductal carcinoma, ER postive, MD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 Mammograms at [facility] on 01/04/2021 Bi-Rads 2 benign. REVIEW OF SYSTEMS Per HPI and otherwise negative by full review of organ systems. ECOG PERFORMANCE STATUS: 0 PHYSICAL EXAMINATION: Vitals: BP 168/72 Pulse 68 Temp (Src) 97.8 (Temporal) Resp 16 Ht 5' 4.016 (1.63m) Wt 129lb 12.8 oz (58.9kg) SpO2 99% BMI 22.27 [...] wounds or petechiae. ALLERGIES: ALLERGIES Allergen Reactions Fnmfomy-Nib-Bjc Red* Unknown Other reaction(s): AOF MEDICATIONS: anastrozole [...] which included preparing to see the patient, ncaa-pe-vqtn patient care, completing clinical documentation, obtaining and/or reviewing separately obtained history, performing a medically appropriate examination, communicating results to the pat ient/family/caregiver and care coordination (not separately reported). Sandeep Lenz MD, CPE Services Provided at: [facility], [place], [place] & [place], [place] CC: Eduardo Sharpe MD [address] [facility] [address] documented in this encounterToledo Hospital08-17-2023 NoteHNO ID: [id number] Author: Aleida Vargas LSW Service: ? Author Type: Java Mobile Developer Type: Progress Notes Filed: 05/09/2023 11:00 AM Note Text: Patient appears on the [facility] Time Treatment List for a non-oncology treatment. No psychosocial assessment is indicated. DENIA Gupta-[facility]08-17-2023 History of Present illness Narrative* Aleida Vargas LSW - 05/09/2023 10:59 AM EDT Patient appears on the [facility] Time Treatment List for a non-oncology treatment. No psychosocial assessment is indicated. DENIA Gupta-Karan documented in this encounterToledo Hospital08-07-2023 NoteHNO ID: [id number] Author: Sandeep Lenz MD Service: ? Author Type: Physician Type: Progress Notes Filed: 05/05/2023 6:04 PM Note Text: NAME: Andrew Barros [facility] NO.: [id number] DATE OF SERVICE: April 29, 2023 (Eduardo) [...] outer quadrant, invasive ductal carcinoma, ER postive, MD positive, Her2 lauren negative; 1.6 cm x [...] markers prior to zometa Bone scan - [facility] is fine. RTC after Bone scan [...] start on Vit-D + Calcium. Mammograms at [facility] on 01/04/2021 Bi-Rads 2 benign. REVIEW [...] of recurring mass. ALLERGIES: ALLERGIES Allergen Reactions Cervrhf-Our-Sir Red* Unknown Other reaction(s): AOF MEDICATIONS: doxazosin [...] by mouth twice elaine (more content not included)...[facility]08-07-2023 Instructions* Patient Instructions* Sandeep Lenz MD - 04/29/2023 4:09 PM EDT Continue Arimidex. Stop Calcium Continue Vitamin D. Zometa for hypercalcemia later this week Repeat labs and tumor markers prior to zometa Bone scan - [facility] is fine. RTC after Bone scan documented in this encounterToledo Hospital08-07-2023 History of Present illness Narrative* Sandeep Lenz MD - 04/29/2023 4:01 PM EDT Images from the original note were not included. NAME: Andrew Barros CLINIC NO.: [id number] DATE OF SERVICE: April 29, 2023 (Eduardo) [...] outer quadrant, invasive ductal carcinoma, ER postive, MD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 Mammograms at [facility] on 01/04/2021 Bi-Rads 2 benign. REVIEW [...] of recurring mass. ALLERGIES: ALLERGIES Allergen Reactions Uetlxpp-Wtb-Uxe Red* Unknown Other reaction(s): AOF MEDICATIONS: doxazosin [...] acetaminophen 650 mg tab(s) (TYLENOL), DISCONTINUED: zoledronic kt-ipodzhmg-4.9NaCl 4 mg iv piggyback 100 mL (ZOMETA) (E83.52) Hypercalcemia Plan: CA 27.29 BLOOD, CA 15-3 BLD, CBC + DIFF, COMP METABOLIC PANEL, PTH, INTACT (WITHOUT CALCIUM), PTH RELATED PEPTIDE, PTH, INTACT (WITHOUT CALCIUM), DISCONTINUED: PHARMACY COMMUNICATION PATIENT ARRIVED, DISCONTINUED: acetaminophen 650 mg tab(s) (TYLENOL), DISCONTINUED: zoledronic jy-zttkdaci-6.9NaCl 4 mg iv piggyback 100 mL (ZOMETA) [...] which included preparing to see the patient, wjnp-ab-fkkz patient care, completing clinical documentation, obtaining and/or reviewing separately obtained history, performing a medically appropriate examination, communicating results to the pat ient/family/caregiver and care coordination (not separately reported). Sandeep Lenz MD, CPE Services Provided at: [place], [place] & [facility], [facility], [place], [place] CC: Eduardo Sharpe MD [address] [address] documented in this encounterToledo Hospital07-10-2023 NoteUT Cardiology - [facility] Josse Barros is a 77 y.o. year old [...] February 2023 she was admitted to the [facility] emergency room with epistaxis. She was [...] Skin: General: Skin i (more content not included)...[facility]04-24-2023 NoteCardiology Clinic Note Subjective Andrew Barros is a 77 y.o. [...] feeling fatigued. -She was recently discharged from [facility] d/t PNA and sepsis. She was [...] well perfused Neuro: A&Ox3, (more content not included)...[facility] 06-29-2022 Miscellaneous Notes* Telephone Encounter - Arabella Cotter MA - 06/29/2022 3:14 PM EDT Patient has an appt on 07/09/22. Would you like labs, if so place orders. Arabella Cotter MA documented in this encounterToledo Hospital08-27-2022 History of Present illness Narrative* Kristian Mcwilliams MD - 05/19/2022 12:13 PM EDT Images from the original note were not included. EMERGENCY TRIAGE, TREAT AND TRANSPORT (ET3) DOCUMENTATION OF TELEHEALTH VISIT Date / Time: 05/19/2022 / 1130 Name: Andrew Barros : 1945 SSN: (Not on file) EMS Agency: [facility] [x] Verbal consent obtained [] [...] by: Kristian Mcwilliams MD documented in this [id number] History of Present illness Narrative* Herbert Pelaez MD - 01/08/2022 11:33 PM EDT Images from the original note were not included. Radiation Oncology - Follow Up Note PATIENT NAME: Andrew Barros PATIENT DIAGNOSIS/PATIENT IDENTIFICATION: Ms. Barros is a 76-year old female with Infiltrating ductal carcinoma of the Left breast, UOQ, pathologic stage IIA (pT1c pN1a M0), ER-positive, MD-positive and Her2/lauren not amplified, s/p partial mastectomy with sentinel lymph node biopsy; status post radiation therapy to the left breast and regional lymph nodes completing on 09/10/2018 under the care of Dr. Burks (6120 cGy in 34 fractions). She is maintained on Arimidex under the care of Dr. Lenz. INTERVAL HISTORY/ROS: Ms. Barros returns to clinic today for routine follow-up approximately threeand a half years after the completion of her radiation treatments and two years since her last visit on 03/10/2020. In the interim, she had her annual surveillance mammogram on 01/05/2022 which showedstable posttreatment changes without evidence of recurrence (BI-RADS [...] was otherwise noncontributory. ALLERGIES ALLERGIES Allergen Reactions Ntvjdoj-Crn-Nkr Red* Unknown Other reaction(s): AOF MEDICATIONS: Current [...] pathologic stage IIA (pT1c pN1a M0), ER-positive, MD-positive and Her2/lauren not amplified, s/p partial mastectomy with sentinel lymph node biopsy; status post radiation therapy to theleft breast and regional lymph nodes completing on [...] which included preparing to see the patient, ketm-sw-ogyq patient care and counseling and educating the patient/family/caregiver. This document has been created with the use of voice recognition technology. It may contain inaccuracies, misspellings, inaccurate syntax or inappropriate word context that are a result of the inadequacies/shortcomings of said technology/software. documented in this encounterToledo Hospital04-18-2022 History of Present illness Narrative* Sandeep Lenz MD - 01/08/2022 1:25 PM EDT Images from the original note were not included. NAME: PapoAndrew [facility] NO.: [id number] DATE OF SERVICE: January 08, 2022 Some [...] outer quadrant, invasive ductal carcinoma, ER postive, MD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 Mammograms at [facility] on 01/04/2021 Bi-Rads 2 benign. REVIEW OF SYSTEMS Per HPI and otherwise negative by full review of organ systems. ECOG PERFORMANCE STATUS: 0 PHYSICAL EXAMINATION: Vitals: BP 150/69 Pulse 68 Temp (Src) 97.4 (Temporal) Resp 16 Ht 5' 4.016 (1.63m) Wt 141lb 9.6 oz (64.2kg) SpO2 97% BMI 24.29 [...] of recurring mass. ALLERGIES: ALLERGIES Allergen Reactions Dnjeido-Dvt-Aan Red* Unknown Other reaction(s): AOF MEDICATIONS: amLODIPine [...] which included preparing to see the patient, bdgw-qx-oobf patient care, completing clinical documentation, obtaining and/or reviewing separately obtained history, performing a medically appropriate examination, communicating results to the pat ient/family/caregiver and care coordination (not separately reported). Sandeep Lenz MD, CPE Services Provided at: [place], [place] & [place], [place] CC: Eduardo Sharpe MD [address] [facility] [address] documented in this encounterToledo Hospital04-18-2022 Nurse Note* Arabella Cotter MA - 01/08/2022 1:07 PM EDT Patient has had brain bleeds since being here last she is seeing Dr. Hernandez , she has been in [facility] [place] due to the bleeds. Arabella Rodriguez MA documented in this encounterToledo Hospital03-10-2022 Evaluation note* Encounter Date Diagnosis Assessment Notes Treatment Notes Treatment Clinical Notes Nov, Nontraumatic subcortical hemorrhage of right [...] present CT and compared to the previous. yoonew Other 12-25-2020 NoteMicrobiology PROCEDURE: Blood Culture Charcoal [R1] SOURCE: Blood BODY SITE: Arm L COLLECTED DATE/TIME: 09/09/2020 13:00 EST RECEIVED DATE/TIME: 09/09/2020 14:05 EST START DATE/TIME: 09/09/2020 14:05 EST FREE TEXT SOURCE: lt Koko Astudillo DO, DO, John FINAL REPORTS Final Report [] Verified Date/Time: 09/16/2020 16:03 EST No growth at 7 days. Performing Locations R1: This test was performed at: [employer], [address] [place] [address], [id number] [place] [address], WperltRegency Hospital CompanyComment on above:Performed By: #### [id number] ####[facility] [address] [place] [address] [id number] NoteMicrobiology PROCEDURE: Blood Culture Charcoal [R1] SOURCE: Blood BODY SITE: Hand L COLLECTED DATE/TIME: 09/09/2020 13:49 EST RECEIVED DATE/TIME: 09/09/2020 14:06 EST START DATE/TIME: 09/09/2020 14:06 EST FREE TEXT SOURCE: Koko Pettit DO, DO, John FINAL REPORTS Final Report [] Verified Date/Time: 09/16/2020 16:01 EST No growth at 7 days. Performing Locations R1: This test was performed at: [employer], [address] [place] [address], [id number] [place] [address], EflwdtRegency Hospital CompanyComment on above:Performed By: #### [id number] #### [facility] [address] [place] [address] [id number] note* Diagnosis Onset Date Resolution Status Atrial fibrillation acute Diabetes acute Hypertension acute Intracerebral hemorrhage acu te Nontraumatic intracerebral hemorrhage [facility] Work Phone: Evaluation note* Diagnosis Malignant neoplasm of upper-outer quadrant of left breast in female, estrogen receptor positive (HCC)- Primary Encounter for screening for osteoporosis Special screening for osteoporosis Hypercalcemia documented in this encounter [facility] note* Diagnosis Malignant neoplasm of upper-outer quadrant of left breast in female, estrogen receptor positive (HCC)- Primary documented in this encounter [facility] note* Diagnosis Dyspnea, unspecified type- Primary documented in this encounter [facility] note* Diagnosis Malignant neoplasm of upper-outer quadrant of left breast in female, estrogen receptor positive (HCC)- Primary Encounter for screening for osteoporosis Special screening for osteoporosis Hypercalcemia Hypercalcemia documented in this encounter [facility] note* Diagnosis Malignant neoplasm of upper-outer quadrant of left breast in female, estrogen receptor positive (HCC) documented in this encounter [facility] note* Diagnosis Hypercalcemia- Primary Other specified menopausal and perimenopausal disorders Malignant neoplasm of upper-outer quadrant of left breast in female, estrogen receptor positive (HCC) documented in this encounter [facility] note* Diagnosis Malignant neoplasm of upper-outer quadrant of left breast in female, estrogen receptor positive (HCC)- Primary Hypercalcemia Malignant neoplasm of breast in female, estrogen receptor positive, unspecified laterality, unspecified site of breast (HCC) Stage 3 chronic kidney disease, unspecified whether stage 3a or 3b CKD (HCC) documented in this encounter [facility] note* Diagnosis Malignant neoplasm of upper-outer quadrant of left breast in female, estrogen receptor positive (HCC) documented in this encounter [facility] note* Diagnosis Hypercalcemia- Primary Malignant neoplasm of upper-outer quadrant of left breast in female, estrogen receptor positive (HCC) Stage 3 chronic kidney disease, unspecified whether stage 3a or 3b CKD (HCC) documented in this encounter [facility] noteNo InformationNort [employer] Other Evaluation note* Diagnosis Age-related nuclear cataract of left eye- Primary Primary open angle glaucoma (POAG) of both eyes, mild stage (CMS/HCC) documented in this encounter [facility] Narrative - Reported* Type Description Date Medical History hypertension Medical History heart disease Medical History Esophageal reflux Medical History diabetes mallitus Medical History cancer Surgical History breast cancer Hospitalization History See Above yoonew Other reason for referral (narrative)* Diagnostic Procedure Only (Routine) - Pending Review Specialty Diagnoses / Procedures Referred By Compa hampton Referred To Contact MOLECULAR & FUNCTIONAL IMAGING Diagnoses 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 for referral (narrative)* Diagnostic Procedure Only (Routine) - Pending Review Specialty Diagnoses / Procedures Referred By Compa hampton Referred To Contact BR IMAGING Diagnoses Malignant neoplasm of upper-outer quadrant of left breast in female, estrogen receptor positive (HCC) Breast screening Encounter for screening mammogram for malignant neoplasm of breast Procedures SHANNEN SCREENING SCREENING MAMMOGRAPHY BI 2-VIEW BREAST INC CAD Sandeep Lenz MD [address] [place] [address] Br Imaging [address] [place] [address] Referral ID Status Reason Start Date Expiration Date Visits Requested Visits Authorized [id number] Pending Review Auto-Generat ed Referral 10/27/2024 12/24/2024 1 1 [facility] Summary Purpose Family History No Family [...] 04/30/2023 2:46 PM EDT [address]-qxiluyqt-2.9NaCl 4 mg iv piggyback 100 mL (ZOMETA) [...] HIGH MDM 60-74 MINUTES Sandeep Lenz MD [address] [place] [address] [address] [place] [address] Referral ID Status Reason Start Date Expiration Date Visits Requested Visits Authorized [id number] Authorized PCP Requested Referral 05/20/2023 05/19/2024 1 1 Additional Source Comments INFORMATION SOURCE (unrecogn ized section and content) DATE CREATED AUTHOR 01/18/2021 [facility] DATE CREATED AUTHOR AUTHOR'S ORGANIZ ATION 01/10/2022 [facility] DATE CREATED AUTHOR AUTHOR'S ORGANIZ ATION 05/15/2022 [facility] DATE CREATED AUTHOR AUTHOR'S ORGANIZ ATION 05/22/2022 [facility] DATE CREATED AUTHOR AUTHOR'S ORGANIZ ATION 09/24/2022 [facility] DATE CREATED AUTHOR AUTHOR'S ORGANIZ ATION 11/01/2023 [facility] Special[facility] DATE CREATED AUTHOR AUTHOR'S ORGANIZ ATION 11/23/2023 [facility] DATE CREATED AUTHOR AUTHOR'S ORGANIZ ATION 11/26/2023 [facility] Care Teams (unrecognized sec tion and [...] Eduardo Sharpe MD Primary Care Provider Active Drywall 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 Relationship Specialty Start Date End Date Eduardo Sharpe MD [address] [place] [address] PCP - General Family Practice 05/30/18 Drywall Hanger Relationship Specialty Start Date End Date Eduardo Sharpe MD [address] [place] [address] PCP - General Family Practice 05/30/18 Drywall Hanger Relationship Specialty Start Date End Date Eduardo Sharpe MD [address] [place] [address] PCP - General Family Medicine 05/30/18 Drywall Hanger Relationship Specialty Start Date End Date Eduardo Sharpe MD [address] [place] [address] PCP - General Family Medicine 05/30/18 Drywall Hanger Relationship Specialty Start Date End Date Eduardo Sharpe MD PCP - General Family Medicine 05/30/18 Drywall Hanger Relationship Specialty Start Date End Date Eduardo Sharpe MD PCP - General Family Medicine 05/30/18 Drywall Hanger Relationship Specialty Start Date End Date Eduardo Sharpe MD PCP - General Family Medicine 05/30/18 Drywall Hanger Relationship Specialty Start Date End Date Eduardo Sharpe MD PCP - General Family Medicine 05/30/18 Drywall Hanger Relationship Specialty Start Date End Date Eduardo Sharpe MD PCP - General Family Medicine 05/30/18 Drywall Hanger Relationship Specialty Start Date End Date Eduardo Sharpe MD PCP - General Family Medicine 05/30/18 Drywall Hanger Relationship Specialty Start Date End Date Eduardo Sharpe MD PCP - General Family Medicine 05/30/18 Drywall Hanger Relationship Specialty Start Date End Date Eduardo Sharpe MD PCP - General Family Medicine 05/30/18 Drywall Hanger Relationship Specialty Start Date End Date Eduardo Sharpe MD PCP - General Family Medicine 05/30/18 Source Comments (unrecognize d section and content) In the event this informatio n is protected by the Federal Confidentiality of Alcohol and Drug Abuse Patient Records regulations: The Federal rules restrict any use of the information to criminally investigate or prosecute any alcohol or drug abuse patient.Toledo HospitalIn the event this information is protected by the Federal Confidentiality of Alcohol and Drug Abuse Patient Records regulations: The Federal rules restrict any use of the information to criminally investigate or prosecute any alcohol or drug abuse patient.T[facility] HospitalIn the event this information is protected by the Federal Confidentiality of Alcohol and Drug Abuse Patient Records regulations: The Federal rules restrict any use of the information to criminally investigate or prosecute any alcohol or drug abuse patient.T[facility] HospitalIn the event this information is protected by the Federal Confidentiality of Alcohol and Drug Abuse Patient Records regulations: The Federal rules restrict any use of the information to criminally investigate or prosecute any alcohol or drug abuse patient.[facility] HospitalIn the event this information is protected by the Federal Confidentiality of Alcohol and Drug Abuse Patient Records regulations: The Federal rules restrict any use of the information to criminally investigate or prosecute any alcohol or drug abuse patient.T[facility] HospitalIn the event this information is protected by the Federal Confidentiality of Alcohol and Drug Abuse Patient Records regulations: The Federal rules restrict any use of the information to criminally investigate or prosecute any alcohol or drug abuse patient.T[facility] HospitalIn the event this information is protected by the Federal Confidentiality of Alcohol and Drug Abuse Patient Records regulations: The Federal rules restrict any use of the information to criminally investigate or prosecute any alcohol or drug abuse patient.[facility] the event this information is protected by the Federal Confidentiality of Alcohol and Drug Abuse Patient Records regulations: The Federal rules restrict any use of the information to criminally investigate or prosecute any alcohol or drug abuse patient.[facility]In the event this information is protected by the Federal Confidentiality of Alcohol and Drug Abuse Patient Records regulations: The Federal rules restrict any use of the information to criminally investigate or prosecute any alcohol or drug abuse patient.[facility] the event this information is protected by the Federal Confidentiality of Alcohol and Drug Abuse Patient Records regulations: The Federal rules restrict any use of the information to criminally investigate or prosecute any alcohol or drug abuse patient.[facility]In the event this information is protected by the Federal Confidentiality of Alcohol and Drug Abuse Patient Records regulations: The Federal rules restrict any use of the information to criminally investigate or prosecute any alcohol or drug abuse patient.[facility]In the event this information is protected by the Federal Confidentiality of Alcohol and Drug Abuse Patient Records regulations: The Federal rules restrict any use of the information to criminally investigate or prosecute any alcohol or drug abuse patient.[facility] the event this information is protected by the Federal Confidentiality of Alcohol and Drug Abuse Patient Records regulations: The Federal rules restrict any use of the information to criminally investigate or prosecute any alcohol or drug abuse patient.[facility] Reason for Visit (unrecogniz ed section and content) Reason Comments Breast Cancer 5 month follow up Reason Comments Breast Cancer Reason Comments Shortness of breath Reason Comments Lab Orders Reason Comments Refill Request Specialty Diagnoses / Procedures Referred By Contchelle t Referred To Contact Diagnoses Malignant neoplasm of upper-outer quadrant of left breast in female, estrogen receptor positive (HCC) Other specified menopausal and perimenopausal disorders Hypercalcemia Sandeep Lenz MD [address] [place] [address] Swapnil Treat Marcos [address] [place] [address] Referral ID Status Reason Start Date Expiration Date V isits Requested Visits Authorized [id number] Authorized 04/29/2023 07/28/2023 99 99 Reason Comments Breast Cancer 1 year follow up Reason Comments Results Reason Comments Breast Cancer Followup Reason Comments Referral Information Nephrology Reason Comments Cataract Reason Comments Breast Cancer Follow up FOR RECORDS PERTAINING TO PATIENTS WHO ARE [...] BE BASED ON THE PRIMARY CLINICAL RECORDS. [facility] provides no warranty or guarantee of the accuracy or completeness of information in this document.
[2023-11-28] MEDS: DIAZEPAM 5 MG TABLET PO (06:42)
[2023-11-28] MEDS: TROPICAMIDE 1% OP SOL 300 DROP/15 ML BOTTLE OP ×4 (06:44→07:24)
[2023-11-28] MEDS: PROPARACAINE HCL 0.5% 300 DROP/15 ML BOTTLE OP ×5 (06:44→08:16)
[2023-11-28] MEDS: PHENYLEPHRINE HCL 2.5% OP SOL 40 DROP/2 ML BOTTLE OP ×4 (06:45→07:25)
[2023-11-28] MEDS: BESIFLOXACIN HCL 100 DROP DROPS.SUSP OP ×4 (06:45→07:25)
[2023-11-28 07:00] VITALS: BP 152/67; PULSE 66; RESP 20; TEMP 36.1; O2SAT 96
[2023-11-28 08:10] VITALS: BP 153/84; PULSE 70; RESP 18; O2SAT 96
[2023-11-28] MEDS: HYALURONATE SODIUM 16 MG/ML SYRINGE OP (08:13)
[2023-11-28] MEDS: APRACLONIDINE HCL 100 DROP/5 ML BOTTLE OP (08:13)
[2023-11-28] MEDS: LIDOCAINE 2% JELLY 10 ML TOPICAL (08:13)
[2023-11-28] MEDS: BETADINE POVIDONE-IODINE 5% OP SOL 30 ML BOTTLE OP (08:14)
[2023-11-28] MEDS: LIDOCAINE HCL 1% PF 20 MG/2 ML VIAL INJ (08:14)
[2023-11-28] MEDS: PHENYLEPHRINE/KETOROLAC 1-0.3% ML VIAL 4 ML IRR (08:14)
[2023-11-28] MEDS: PREDNISOLONE ACETATE OP 1% SUSP 100 DROPS/5 ML 1 DROP OP (08:14)
[2023-11-28] MEDS: CEFUROXIME SODIUM 750 MG, 0.9 % SODIUM CHLORIDE 16.3 ML OP (08:15)
[2023-11-28] MEDS: TETRACAINE HCL 0.5% OP SOL 80 DROP/4 ML BOTTLE OP (08:15)
[2023-11-28] MEDS: HYALURONATE SODIUM 23 MG/ML SYRINGE EYE-LEFT (08:17)
[2023-11-28 08:29] VITALS: BP 160/81; PULSE 74; RESP 18; O2SAT 93
== END 2023-11-28 08:59 | disposition home or self-care (01) ==
LOC: SURGOUT 06:21
PROVIDERS: PCP Family Medicine; Visit Provider Ophthalmology
PROC: (CPT 66183; principal; 2023-11-28 07:50)
DX: H25.12 Age-related nuclear cataract, left eye (principal); H40.1121 Primary open-angle glaucoma, left eye, mild stage; I48.91 Unspecified atrial fibrillation; I12.9 Hypertensive chronic kidney disease with stage 1 through stage 4 chronic kidney disease, or unspecified chronic kidney disease; E11.22 Type 2 diabetes mellitus with diabetic chronic kidney disease; N18.9 Chronic kidney disease, unspecified; Z79.899 Other long term (current) drug therapy; Z79.82 Long term (current) use of aspirin
CPT/HCPCS: 66183; 66984; C1783; V2630

== ENCOUNTER 2023-12-25 09:30 | Outpatient (OUT) | payer MEDICARE, OTHER, SELFPAY ==
[2023-12-25 13:02] LABS: Alanine Aminotransferase 14 U/L (14-59); Albumin Globulin Ratio 0.9; Albumin Level 3.6 g/dL (3.4-5.0); Alkaline Phosphatase 83 U/L (46-116); Anion Gap 15.2; Aspartate Amino Transferase 12 U/L (15-37); BUN Creatinine Ratio 21.5; Bilirubin Total 0.6 mg/dL (0.2-1.0); Calcium 9.4 mg/dL (8.5-10.1); Carbon Dioxide 27.3 mmol/L (21.0-32.0); Chloride 101 mmol/L (98-107); Estimated GFR (African America 32 (>=60); Estimated GFR (Non-African Ame 26 (>=60); Globulin 3.9 g/dL; Glucose 234 mg/dL (74-106); Potassium 4.5 mmol/L (3.5-5.1); Sodium 139 mmol/L (136-145); Total Protein 7.5 g/dL (6.4-8.2)
== END 2023-12-25 09:31 | disposition home or self-care (01) ==
LOC: LAB 09:31
PROVIDERS: PCP Family Medicine; Visit Provider Family Medicine
DX: I50.9 Heart failure, unspecified (principal)
CPT/HCPCS: 36415; 80053

== ENCOUNTER 2024-01-22 09:48 | Outpatient (OUT) | payer MEDICARE, OTHER, SELFPAY ==
--- NOTE | 2024-01-22 10:00 | CA_ITS ---
Patient Name: ANDREW JAMISON MR#: [id number] : 1945 Exam Date: 01/22/2024 Ordering Doctor: DR GISSELL HARPER M.D. ECHOCARDIOGRAM REPOR PROCEDURE: CA ECHO DOPPLER COMPLETE INDICATIONS: Mitral valve insufficiency, hypertension, diabetes COMPARISON: None. DESCRIPTION: COMPLETE ECHOCARDIOGRAM Real-time transthoracic echocardiography with 2D, M-mode, spectral and color flow Doppler performed. QUALITY: Technical quality was good. 64 , 135#, BSA 1.66 m2, BP 152/86 LEFT VENTRICLE: Normal chamber size. Normal left ventricular wall thickness. LV EF: Global left ventricular systolic function is normal; visually estimated ejection fraction is 55 to 60%. No significant wall motion abnormalities. DIASTOLIC: Diastolic function is indeterminate. ATRIAL SEPTUM: Visually appears intact. LEFT ATRIUM: Moderate dilatation. RIGHT ATRIUM: Moderately dilated. RIGHT VENTRICLE: Normal chamber size. Normal right ventricular systolic function. TRICUSPID VALVE: Normal mobility and thickness. Moderate regurgitation. Doppler studies reveal moderately (45-60) elevated right sided pressures. RVSP 57 mmHg MITRAL VALVE: Normal mobility and thickness. No evidence of mitral valve stenosis. Mild mitral annular calcification. Moderate to severe mitral regurgitation. AORTIC VALVE: Normal trileaflet appearance. Thickened aortic valve. Mildly diminished mobility. No evidence of aortic valve stenosis. DVI 0.7No aortic regurgitation. AORTIC ROOT: Normal diameter and appearance. PULMONIC VALVE: Normal thickness and mobility. No stenosis. Trivial regurgitation. PERICARDIUM: No evidence of pericardial effusion. IVC: IVC is dilated (2.6 mc), does not fully collapse. CONCLUSION: 1. Global left ventricular systolic function is normal; visually estimated ejection fraction is 55 to 60% 2. Normal right ventricular size and systolic function 3. Biatrial enlargement 4. Moderate tricuspid regurgitation; moderately elevated right ventricular systolic pressure RVSP 57 mmHg 5. Moderate to severe mitral regurgitation; consider transesophageal echocardiogram for further assessment of the mitral valve and degree of regurgitation Adult Echocardiography Procedure Report Left Ventricle LVEDD (3.7 - 5.6 cm): 4.15 cm LVESD (2.2 - 4.0 cm): 3.13 cm LVIVS thickness (0.6 - 1.2 cm): 1.14 cm LVPW thickness (0.5 - 1.0 cm): 0.95 cm e': 0.10 m/s E - e': 11.08 LVOT Max Gradient: 3.72 mm[Hg] LVOT Area (cm2): 0.96 m/s Peak Velocity (LVOT): 0.96 m/s Mean Velocity (LVOT): 0.68 m/s LVOT Diameter 1.81 cm Left Atrium LA Volume Index (2D A2C): 43.44 ml/m2 Left Atrium Systolic Dimension: 3.80 cm Mitral Valve MV E to A Ratio: 2.05 Mitral Valve A-Wave Peak Velocity: 0.56 m/s Mitral Valve E-Wave Peak Velocity: 1.15 m/s Right Ventricle Aorta AO Root Diam: 2.54 cm Aortic Valve AoV Area (Peak Abhijit): 1.81 cm2, 1.81 cm2 AoV Area (VTI): 1.61 cm2, 1.61 cm2 Peak Velocity(Antegrade Flow): 1.37 m/s Peak Gradient(Antegrade Flow): 7.54 mm[Hg] Mean Velocity(Antegrade Flow): 0.96 m/s Mean Gradient(Antegrade Flow): 4.23 mm[Hg] Velocity Time Integral: 33.50 cm Tricuspid Valve Peak Velocity (Regurgitant Flow): 3.16 m/s, 3.25 m/s, 3.13 m/s Pulmonic Valve Peak Gradient: 4.18 mm[Hg], 4.45 mm[Hg] Right Atrium Right Atrium Systolic Pressure: 37.09 ml, 37.09 ml Dictated by: Kirill Jackson M.D. on 01/23/2024 at 15:29 Approved by: Kirill Jackson M.D. on 01/23/2024 at 15:34
== END 2024-01-22 09:49 | disposition home or self-care (01) ==
LOC: CARD 09:49
PROVIDERS: PCP Family Medicine; Visit Provider Internal Medicine Interventional Cardiology
DX: I34.0 Nonrheumatic mitral (valve) insufficiency (principal)
CPT/HCPCS: 93306

== ENCOUNTER 2024-02-03 10:26 | Outpatient (OUT) | payer MEDICARE, OTHER, SELFPAY ==
[2024-02-03 11:05] LABS: Hematocrit 40.7 % (36.0-48.0); Hemoglobin 13.4 g/dL (12.0-16.0); Mean Corpuscular HGB Conc 32.9 g/dL (29.9-35.2); Mean Corpuscular Volume 91.1 fL (81.0-99.0); Mean Platelet Volume 10.9 fL (9.5-13.5); Platelet Count 275 10^3/uL (150-450); Red Blood Count 4.47 10^6/uL (4.20-5.40); Red Cell Distribution Width 12.8 % (11.0-15.0); White Blood Count 10.3 10^3/uL (4.0-11.0)
[2024-02-03 12:12] LABS: Percent Iron Saturation 28.3 %
[2024-02-03 13:40] LABS: Albumin Level 3.5 g/dL (3.4-5.0); Anion Gap 14.7; BUN Creatinine Ratio 21.3; Calcium 10.3 mg/dL (8.5-10.1); Carbon Dioxide 28.3 mmol/L (21.0-32.0); Chloride 99 mmol/L (98-107); Estimated GFR (African America 37 (>=60); Estimated GFR (Non-African Ame 30 (>=60); Glucose 152 mg/dL (74-106); Magnesium 1.8 mg/dL (1.8-2.4); Phosphorus 3.8 mg/dL (2.6-4.7); Sodium 138 mmol/L (136-145); Uric Acid 8.5 mg/dL (2.6-6.0)
[2024-02-03 14:35] LABS: Bilirubin Urine NEGATIVE (NEGATIVE); Blood Urine TRACE-I (NEGATIVE); Clarity Urine CLEAR (CLEAR); Color Urine LT. YELLOW (YELLOW); Glucose Urine UA NEGATIVE (NEGATIVE); Ketones Urine NEGATIVE (NEGATIVE); Leukocyte Esterase Urine MODERATE (NEGATIVE); Nitrite Urine NEGATIVE (NEGATIVE); Protein Urine >=300 mg/dL (NEG/TRACE); Specific Gravity Urine 1.025 (1.005-1.025); Urobilinogen Urine 0.2 EU/dL (0.2-1.0)
[2024-02-03 14:42] LABS: Bacteria Urine LARGE #/HPF (NONE SEEN); Cast Seen? NONE SEEN #/LPF (NONE SEEN); Crystals Seen? None Seen #/HPF (None Seen); Mucus Urine NONE SEEN (NONE SEEN); Squamous Epithelial Cell Urine FEW #/LPF (NONE/RARE); WBC Urine 20-50 #/HPF (NONE SEEN)
[2024-02-03 15:04] LABS: Creatinine Urine Random 81.44 mg/dL (20.00-300.00); Protein Creatinine Ratio Urine 2.33; Total Protein Urine Random 190.1 mg/dL (<=11.9)
[2024-02-04 12:10] LABS: PTH, Intact 33 pg/mL (15-65)
[2024-02-04 17:09] LABS: Albumin 3.6 g/dL (2.9-4.4); Alpha-1-Globulin 0.3 g/dL (0.0-0.4); Free Kappa Lt Chains,S 49.6 mg/L (3.3-19.4); Gamma Globulin 1.2 g/dL (0.4-1.8); Immunoglobulin A, Qn, Serum 286 mg/dL (64-422); Immunoglobulin G, Qn, Serum 815 mg/dL (586-1602); Immunoglobulin M, Qn, Serum 425 mg/dL (26-217); Kappa/Lambda Ratio,S 2.07 (0.26-1.65)
== END 2024-02-03 10:27 | disposition home or self-care (01) ==
PROVIDERS: PCP Family Medicine; Visit Provider Internal Medicine
DX: I13.0 Hypertensive heart and chronic kidney disease with heart failure and stage 1 through stage 4 chronic kidney disease, or unspecified chronic kidney disease (principal); I50.9 Heart failure, unspecified; N25.81 Secondary hyperparathyroidism of renal origin; D63.1 Anemia in chronic kidney disease; E11.22 Type 2 diabetes mellitus with diabetic chronic kidney disease; N18.4 Chronic kidney disease, stage 4 (severe)
CPT/HCPCS: 36415; 80053; 80069; 81001; 82306; 82570; 82607; 82728; 82746; 82784; 83521; 83540; 83550; 83735; 83970; 84155; 84156; 84165; 84166; 84550; 85027; 86335

== ENCOUNTER 2024-02-03 10:34 | Outpatient (OUT) | payer MEDICARE, OTHER, SELFPAY ==
[2024-02-03 13:40] LABS: Alanine Aminotransferase 25 U/L (14-59); Albumin Globulin Ratio 0.9; Albumin Level 3.6 g/dL (3.4-5.0); Alkaline Phosphatase 97 U/L (46-116); Aspartate Amino Transferase 18 U/L (15-37); BUN Creatinine Ratio 21.7; Bilirubin Total 0.4 mg/dL (0.2-1.0); Calcium 10.3 mg/dL (8.5-10.1); Carbon Dioxide 28.1 mmol/L (21.0-32.0); Chloride 100 mmol/L (98-107); Estimated GFR (African America 36 (>=60); Estimated GFR (Non-African Ame 30 (>=60); Globulin 4.1 g/dL; Glucose 153 mg/dL (74-106); Potassium 4.1 mmol/L (3.5-5.1); Sodium 138 mmol/L (136-145); Total Protein 7.7 g/dL (6.4-8.2)
== END 2024-02-03 10:35 | disposition home or self-care (01) ==
LOC: LAB 10:35
PROVIDERS: PCP Family Medicine; Visit Provider Family Medicine
DX: I50.9 Heart failure, unspecified (principal)
CPT/HCPCS: 36415; 80053

== ENCOUNTER 2024-03-16 07:55 | Outpatient (OUT) | payer MEDICARE, OTHER, SELFPAY ==
[2024-03-16 09:16] LABS: Alanine Aminotransferase 16 U/L (14-59); Albumin Globulin Ratio 0.7; Albumin Level 3.2 g/dL (3.4-5.0); Alkaline Phosphatase 91 U/L (46-116); Anion Gap 14.2; Aspartate Amino Transferase 17 U/L (15-37); BUN Creatinine Ratio 27.2; Bilirubin Total 0.5 mg/dL (0.2-1.0); Calcium 10.1 mg/dL (8.5-10.1); Chloride 102 mmol/L (98-107); Estimated GFR (African America 37 (>=60); Estimated GFR (Non-African Ame 31 (>=60); Globulin 4.4 g/dL; Glucose 144 mg/dL (74-106); Potassium 4.2 mmol/L (3.5-5.1); Sodium 141 mmol/L (136-145); Total Protein 7.6 g/dL (6.4-8.2)
== END 2024-03-16 07:56 | disposition home or self-care (01) ==
LOC: LAB 07:57
PROVIDERS: PCP Family Medicine; Visit Provider Family Medicine
DX: I50.9 Heart failure, unspecified (principal)
CPT/HCPCS: 36415; 80053

== ENCOUNTER 2024-06-02 09:34 | Outpatient (OUT) | payer MEDICARE, OTHER, SELFPAY ==
[2024-06-02 10:10] LABS: Alanine Aminotransferase 20 U/L (14-59); Albumin Globulin Ratio 0.9; Albumin Level 3.4 g/dL (3.4-5.0); Alkaline Phosphatase 103 U/L (46-116); Anion Gap 14.1; Aspartate Amino Transferase 18 U/L (15-37); BUN Creatinine Ratio 20.2; Bilirubin Total 0.6 mg/dL (0.2-1.0); Calcium 9.6 mg/dL (8.5-10.1); Carbon Dioxide 30.3 mmol/L (21.0-32.0); Chloride 100 mmol/L (98-107); Estimated GFR (African America 33 (>=60); Estimated GFR (Non-African Ame 27 (>=60); Glucose 147 mg/dL (74-106); Potassium 4.4 mmol/L (3.5-5.1); Sodium 140 mmol/L (136-145); Total Protein 7.4 g/dL (6.4-8.2)
== END 2024-06-02 09:35 | disposition home or self-care (01) ==
LOC: LAB 09:35
PROVIDERS: PCP Family Medicine; Visit Provider Family Medicine
DX: I50.9 Heart failure, unspecified (principal)
CPT/HCPCS: 36415; 80053; 86015

== ENCOUNTER 2024-06-09 09:28 | Outpatient (OUT) | payer MEDICARE, OTHER, SELFPAY ==
[2024-06-09 10:14] LABS: Basophils Absolute Auto 0.1 10^3/uL (0.0-0.1); Basophils Percent Auto 0.6 % (0.2-2.0); Eosinophils Absolute Auto 0.1 10^3/uL (0.0-0.7); Eosinophils Percent Auto 1.4 % (0.9-7.0); Hematocrit 40.4 % (36.0-48.0); Hemoglobin 13.1 g/dL (12.0-16.0); Immature Granulocytes Abs Auto 0.04 10^3/uL (0.00-0.03); Immature Granulocytes Pct Auto 0.4 % (0.0-0.5); Lymphocytes Absolute Auto 1.4 10^3/uL (1.2-3.8); Lymphocytes Percent Auto 14.1 % (20.5-60.0); Mean Corpuscular HGB Conc 32.4 g/dL (29.9-35.2); Mean Corpuscular Hemoglobin 30.8 pg (26.7-34.0); Mean Corpuscular Volume 95.1 fL (81.0-99.0); Monocytes Absolute Auto 0.8 10^3/uL (0.3-0.8); Monocytes Percent Auto 8.5 % (1.7-12.0); Neutrophils Absolute Auto 7.2 10^3/uL (1.4-6.5); Platelet Count 287 10^3/uL (150-450); Red Blood Count 4.25 10^6/uL (4.20-5.40); White Blood Count 9.6 10^3/uL (4.0-11.0)
[2024-06-09 10:42] LABS: Estimated Average Glucose 126 mg/dL
[2024-06-09 10:44] LABS: Alanine Aminotransferase 23 U/L (14-59); Albumin Level 3.6 g/dL (3.4-5.0); Alkaline Phosphatase 100 U/L (46-116); Anion Gap 13.3; Aspartate Amino Transferase 21 U/L (15-37); BUN Creatinine Ratio 21.9; Bilirubin Total 0.5 mg/dL (0.2-1.0); Calcium 9.5 mg/dL (8.5-10.1); Chloride 104 mmol/L (98-107); Estimated GFR (African America 33 (>=60); Estimated GFR (Non-African Ame 27 (>=60); Globulin 3.9 g/dL; Glucose 150 mg/dL (74-106); Potassium 4.3 mmol/L (3.5-5.1); Sodium 142 mmol/L (136-145); Total Protein 7.5 g/dL (6.4-8.2)
[2024-06-09 10:45] LABS: Albumin Globulin Ratio 0.9; Chol HDL Ratio 2.1; Cholesterol 254 mg/dL (<=200); Free T3 2.59 pg/mL (2.18-3.98); HDL Cholesterol 120 mg/dL (40-60); Triglycerides 88 mg/dL (<=150); VLDL CHOLESTEROL 17.6 mg/dL
== END 2024-06-09 09:29 | disposition home or self-care (01) ==
LOC: LAB 09:29
PROVIDERS: PCP Family Medicine; Visit Provider Family Medicine
DX: E78.5 Hyperlipidemia, unspecified (principal); I48.0 Paroxysmal atrial fibrillation; I50.9 Heart failure, unspecified; E11.9 Type 2 diabetes mellitus without complications; Z12.12 Encounter for screening for malignant neoplasm of rectum; D64.9 Anemia, unspecified; E03.9 Hypothyroidism, unspecified; E55.9 Vitamin D deficiency, unspecified; I50.30 Unspecified diastolic (congestive) heart failure; I11.0 Hypertensive heart disease with heart failure
CPT/HCPCS: 36415; 80053; 80061; 82306; 83036; 83540; 83880; 84436; 84443; 84481; 85025

== ENCOUNTER 2024-06-15 11:53 | Outpatient (REF) | payer MEDICARE, OTHER, SELFPAY ==
[2024-06-15 13:06] LABS: Internal Control Within Normal Limits; SARS-CoV-2 Ag POSITIVE (NEGATIVE)
== END 2024-06-15 11:54 | disposition home or self-care (01) ==
LOC: LAB 11:53
PROVIDERS: PCP Family Medicine; Visit Provider Family Medicine
DX: J20.9 Acute bronchitis, unspecified (principal); U07.1 COVID-19
CPT/HCPCS: 87811

== ENCOUNTER 2024-07-02 13:41 | Outpatient (OUT) | payer MEDICARE, OTHER, SELFPAY ==
--- NOTE | 2024-07-02 14:00 | CA_ITS ---
Patient Name: ANDREW JAMISON MR#: [id number] : 1945 Exam Date: 07/02/2024 Ordering Doctor: DR GISSELL SANDOVAL M.D. ECHOCARDIOGRAM REPORT PROCEDURE: CA ECHO DOPPLER COMPLETE INDICATIONS: Nonrheumatic mitral valve regurgitation, hypertension, pulmonary hypertension COMPARISON: None. DESCRIPTION: COMPLETE ECHOCARDIOGRAM Real-time transthoracic echocardiography with 2D, M-mode, spectral and color flow Doppler performed. QUALITY: Technical quality was good. LEFT VENTRICLE: Normal chamber size. Borderline left ventricular hypertrophy. Systolic function is normal. LV EF: Normal left ventricular ejection fraction, (>55%). DIASTOLIC: Grade II diastolic dysfunction. ATRIAL SEPTUM: Visually appears intact. LEFT ATRIUM: Mild dilatation. RIGHT ATRIUM: Mild dilatation. RIGHT VENTRICLE: Normal chamber size. Normal right ventricular systolic function. TRICUSPID VALVE: Normal mobility and thickness. No stenosis with mild to moderate regurgitation. Doppler studies reveal moderately (45-60) elevated right sided pressures. RVSP 51 mmHg MITRAL VALVE: Normal mobility and thickness. No evidence of mitral valve stenosis. Mild mitral annular calcification. Moderate mitral regurgitation. AORTIC VALVE: Normal trileaflet appearance. Thickened aortic valve. Normal leaflet mobility. No evidence of aortic valve stenosis. No aortic regurgitation. AORTIC ROOT: Normal diameter and appearance. Ascending aorta is normal in size. PULMONIC VALVE: Normal thickness and mobility. No stenosis. Trivial regurgitation. PERICARDIUM: No evidence of pericardial effusion. IVC: IVC is dilated (2.6 cm) with no collapse. PLEURA: CONCLUSION: 1. Normal left ventricular size and systolic function. LVEF is 55 to 60%. 2. Normal right ventricular size and systolic function. 3. Grade 2 diastolic dysfunction. 4. Mild biatrial dilatation. 5. Moderate mitral regurgitation. 6. Mild to moderate tricuspid regurgitation. 7. Moderately elevated right-sided pressures. RVSP is 51 mmHg. Adult Echocardiography Procedure Report Left Ventricle LVEDD (3.7 - 5.6 cm): 4.47 cm LVESD (2.2 - 4.0 cm): 3.36 cm LVIVS thickness (0.6 - 1.2 cm): 0.93 cm LVPW thickness (0.5 - 1.0 cm): 0.96 cm e': 0.08 m/s E - e': 10.65 LVOT Max Gradient: 4.37 mm[Hg] LVOT Area (cm2): 1.04 m/s Peak Velocity (LVOT): 1.04 m/s Mean Velocity (LVOT): 0.66 m/s LVOT Diameter 1.92 cm Left Atrium LA Volume Index (2D A2C): 47.16 ml/m2 Left Atrium Systolic Dimension: 3.67 cm Mitral Valve MV E to A Ratio: 1.92 Mitral Valve A-Wave Peak Velocity: 0.47 m/s Mitral Valve E-Wave Peak Velocity: 0.90 m/s Right Ventricle Aorta AO Root Diam: 2.65 cm Ascending Ao Diam: 2.38 cm Aortic Valve AoV Area (Peak Abhijit): 2.90 cm2, 2.90 cm2 AoV Area (VTI): 2.93 cm2, 2.93 cm2 Peak Velocity(Antegrade Flow): 1.05 m/s Peak Gradient(Antegrade Flow): 4.37 mm[Hg] Mean Velocity(Antegrade Flow): 0.65 m/s Mean Gradient(Antegrade Flow): 2.00 mm[Hg] Velocity Time Integral: 21.55 cm Tricuspid Valve Peak Velocity (Regurgitant Flow): 2.82 m/s, 2.78 m/s, 2.98 m/s Pulmonic Valve Mean Gradient: 2.42 mm[Hg] Mean Velocity: 0.71 m/s Peak Velocity: 1.17 m/s, 1.02 m/s Peak Gradient: 5.47 mm[Hg], 4.16 mm[Hg] Right Atrium Right Atrium Systolic Pressure: 42.67 ml, 42.67 ml Dictated by: Gissell Sandoval M.D. on 07/02/2024 at 15:28 Approved by: Gissell Sandoval M.D. on 07/02/2024 at 15:32
== END 2024-07-02 13:42 | disposition home or self-care (01) ==
LOC: CARD 13:42
PROVIDERS: PCP Family Medicine; Visit Provider Internal Medicine Interventional Cardiology
DX: I34.0 Nonrheumatic mitral (valve) insufficiency (principal); I27.20 Pulmonary hypertension, unspecified
CPT/HCPCS: 93306

== ENCOUNTER 2024-07-14 08:50 | Outpatient (OUT) | payer MEDICARE, OTHER, SELFPAY ==
--- OUTSIDE RECORDS SUMMARY | 2024-07-14 09:18 | XMS_ITS | CCD ---
Author Organization [facility] Care Team Providers Care Stores Despatch Hand Name Role Phone MD Eduardo Sharpe Primary Care Provider [phone] MD Radha Echavarriaop Admit Provider MD Radha Echavarriaop Attending Provider MD Brayden Hernandez Other Provider MD Brayden Hernandez Attending Provider Eduardo Sharpe MD Primary Care Provider [phone] Brayden Hernandez Unavailable EDUARDO SHARPE Primary Care Unavailable EDUARDO SHARPE Referring Unavailable GANESH HALE Admitting Unavailable GANESH HALE Attending Unavailable Unavailable Primary Care Provider Unavailcharles e PROVIDER, UNKNOWN Attending Unavailable PROVIDER, UNKNOWN Admitting Unavailable Eduardo Sharpe MD Primary Care Provider [phone] MIKALA HIGGINS Admitting Unavailable MIKALA HIGGINS Attending [...] SHARPE Primary Care Unavailable DR EDUARDO SHARPE Attending Unavailable DELL, DR CLARK Consulting Unavailable [...] SHARPE Primary Care Unavailable DELL, DR CLARK Primary Care Unavailable DELL, DR CLARK Attending Unavailable DELL, DR CLARK Consulting Unavailable DELL, DR CLARK Admitting Unavailable SANCHEZARNALDO Consulting Unavailable DELL, DR CLARK Primary Care Unavailable FAWWAD, PARKS H Attending Unavailable FAWWAD, PARKS H Admitting Unavailable DELL, DR CLARK Admitting Unavailable DELL, DR CLARK Consulting Unavailable DELL, DR CLARK Procedure Practitioner Unavailab le DELL, DR CLARK Attending Unavailable DELL, DR CLARK Primary Care Unavailable DERICK, DR YU Damon Consulting Unavailcharles COLE, DR GRIMALDO Consulting Unavailable BALBIR, DR KATLYN Aragon Consulting Unavailable SAMKATHI HUTSON Consulting Unavailable RE MENDOZA Consulting Unavailable JAZMÍN MACHADO Consulting Unavailable ABHYANKAR, SANDEEP Admitting Unavailable ABHYANKAR, SANDEEP Attending Unavailable ZIEBER, DR KATLYN Aragon Consulting Unavailable HOY, DR CLARK Primary Care Unavailable ABHYANKAR, SANDEEP Consulting Unavailable HOY, DR CLARK Primary Care [...] Unavailable SHAIKH Barbara AGUIAR Attending Unavailable SHAIKH Barbara AGUIAR Admitting Unavailable DELL, DR CLARK Primary Care Unavailable MOUKAPRAVEEN, DR BORRERO Consulting Unavailable MOUKAPRAVEEN, DR BORRERO Admitting Unavailable MOUKAPRAVEEN, DR BORRERO Attending Unavailable Eduardo Sharpe MD Primary Care Provider [phone] Bala Hartman Unavailable MARK ISABEL Attending Unavailable TRINA HAIDER Referring Unavailable Unavailable Primary Care Provider UnavailEduardo Yin MD Primary Care Provider [phone] GISSELL HARPER Attending Unavailable GISSELL HARPER Attending Unavailable GISSELL HARPER Attending Unavailable MD Eduardo Sharpe Primary Care Provider [phone] DO Amanda Contreras Attending Provider [phone] EDUARDO SHARPE M Primary Care Unavailable HOY, EDUARDO M Primary Care Unavailable ABHYANKAR, SANDEEP Referring Unavailable HOY, EDUARDO M Primary Care Unavailable ABHYANKAR, SANDEEP Referring Unavailable ABHYANKAR, SANDEEP Attending Unavailable DELL, EDUARDO M Primary Care Unavailable ABHYANKAR, SANDEEP Referring Unavailable HOY, EDUARDO M Primary Care Unavailable HOY, EDUARDO M Primary Care Unavailable HOY, EDUARDO M Primary Care Unavailable HOY, EDUARDO M Primary Care Unavailable ABHYANKAR, SANDEEP Attending Unavailable ABHYANKAR, SANDEEP Referring Unavailable ABHYANKAR, SANDEEP Attending Unavailable HOGreg, EDUARDO M Primary Care Unavailable ABHYANKAR, SANDEEP Referring Unavailable ABHYANKAR, SANDEEP Referring Unavailable ABHYANKAR, SANDEEP Attending Unavailable HOY, EDUARDO M Primary Care Unavailable ABHYANKAR, SANDEEP Referring Unavailable HOY, EDUARDO M Primary Care Unavailable HOY, EDUARDO M Primary Care Unavailable HOY, EDUARDO M Primary Care Unavailable HOY, EDUARDO M Primary Care Unavailable PRIMITIVO ANDRADE Attending Unavailable HAYDER AVILA Admitting Unavailable HOY, EDUARDO M Primary Care Unavailable Amanda Contreras Attending Unavailable Amanda Contreras Admitting Unavailable Hoy, Eduardo M Primary Care Unavailable Allergies Allergy Classification Reported Allergen(s) Allergy Type Date of Onset Reaction(s) Facility (2 sources) [id number] Reductase Inhibitor; Translations: [Swfqkyy-FFX-XvQ Reductase Inhibitor] Propensity to adverse reactions 0 [facility] (5 sources) HMG-CoA reductase inhibitor; Translations: [[id number] REDUCTASE INHIBITORS] Drug Allergy 8 Unknown [facility] (1 source) black walnut pollen extract Drug Allergy 8 [facility] (20 sources) HMG-CoA reductase inhibitor Drug Allergy 8 Unknown [facility] (2 sources) Simvastatin Drug Allergy [facility] Medications Current Medications Medication Drug Class(es) Dates Sig (Normalized) Sig (Original) Accu-Chek Fifi Plus - (2 sources) Accu-Chek Fifi Plus - TEST BLOOD SUGAR ONCE DAILY DX: E11.65 In Vitro for 90 Days Active amLODIPine 5 mg oral tablet (20 sources) Dihydropyridine Calcium Channel Isabel Start: 01-20-2024 take 5 mg by mouth twice daily Amlodipine Active 5 MG PO Twice daily January 20, 2024 12:00am Start: 04-30-2023 take 1 tablet by mena th in the morning amLODIPine (Norvasc) 5 MG tablet Take 1 tablet by mouth in the morning and 1 tablet before bedtime. 0 04/30/2023 Active Start: 12-05-2021 take 2 tablets by mo uth twice daily amLODIPine (NORVASC) 2.5 mg tablet Take 5 mg by mouth twice daily. 12/05/2021 Active Start: 11-11-2021 End: 01-20-2024 take 2.5 mg by mouth once daily Amlodipine Discontinue d 2.5 MG PO Daily November 11, 2021 1:00am January 20, 2024 3:27pm Comment on above: Take 2.5 mg by mouth once daily. Take 5 mg by mouth t wice daily. anastrozole 1 mg oral tablet (20 sources) Aromatase Inhibitor Start: 0 End: 4 take 1 tablet by mouth once daily anastrozole (ARIMIDEX) 1 mg tablet Indications: Malignant neoplasm of upper-outer quadrant of left breast in female, estrogen receptor positive (HCC) TAKE 1 TABLET BY MOUTH EVERY DAY 90 tablet 2 05/08/2023 Active Comment on above: TAKE 1 TABLET BY MENA TH EVERY DAY aspirin 81 mg delayed release oral tablet (20 sources) Platelet Aggregation Inhibitor, Nonsteroidal Anti-inflammatory Drug Start: 4 take 1 tablet by mouth once daily Aspirin (Adult Aspirin Regimen) 81 mg tablet,delayed release (DR/EC) Active 81 MG PO Daily January 20, 2024 12:00am Start: 09-10-2020 End: 04-17-2024 take 81 mg by mouth once daily Aspirin Discontinued 81 MG PO Daily September 10, 2020 1:00am November 09, 2021 7:27pm take 1 tablet by mena th once daily aspirin 81 MG chewable tablet Chew 1 tablet every day by oral route. 0 Active Comment on above: Take 81 mg by mouth once daily. calcium carbonate 625 mg / cholecalciferol 125 unt oral tablet (19 sources) Vitamin D Start: 1 take 1 tablet by mouth twice daily calcium-cholecalcifero l, D3, (OSCAL+D 250) 250-125 mg-unit per tablet Indications: Encounter for screening for osteoporosis , Asymptomatic postmenopausal status , Other specified menopausal and perimenopausal disorders , Malignant neoplasm of upper-outer quadrant of left breast in female, estrogen receptor positive (HCC) Take 1 tablet by mouth twice daily. 60 tablet 3 04/20/2021 Active Comment on above: Take 1 tablet by mena th twice daily. carvedilol 25 mg oral tablet (20 sources) alpha-Adrenergic Isabel, beta-Adrenergic Isabel Start: 2 take 25 mg by mouth twice daily Carvedilol Active 25 MG PO Twice daily November 09, 2021 1:00am Start: 09-10-2020 End: 11-09-2021 take 1 tablet by mouth twice daily Carvedilol (Coreg) 12.5 mg Tablet Discontinued 12.5 MG PO Twice daily 60 September 15, 2020 5:27pm November 09, 2021 8:14pm Start: 09-10-2020 End: 09-10-2020 Carvedilol Discontinued TABL ET September 10, 2020 1:00am September 10, 2020 2:19am take 1 tablet by mena th once daily carvedilol (COREG) 25 mg tablet Take 25 mg by mouth as directed. Takes 1 1/2 tablet 2x a day Active take 0.5 tablet by m outh twice daily carvedilol (Coreg) 25 MG tablet Take 0.5 tablets twice a day by oral route for 90 days. 0 Active Comment on above: Take 25 mg by mouth as directed. Takes 1 1/2 tablet 2x a day doxazosin 4 mg oral tablet (20 sources) alpha-Adrenergic Isabel Start: 04-01-2023 End: 03-31-2024 doxazosin (CARDURA) 4 mg tablet Take 4 mg by mouth daily at bedtime. Takes 2mg in morning then 4mg at night 04/01/2023 Active Comment on above: Take 4 mg by mouth d aily at bedtime. ezetimibe 10 mg oral tablet (20 sources) Dietary Cholesterol Absorption Inhibitor Start: 09-10-2020 End: 09-15-2020 take 10 mg by mouth once daily Ezetimibe Active 10 MG PO Daily September 15, 2020 5:27pm Start: 09-10-2020 End: 09-10-2020 Ezetimibe Discontinued MG TA BLET September 10, 2020 1:00am September 10, 2020 2:19am Comment on above: Take 10 mg by mouth once daily. ferrous sulfate 325 mg oral tablet (20 sources) Start: 01-20-2024 take 325 mg by mouth twice daily Ferrous Sulfate Active 325 MG PO Twice daily January 20, 2024 12:00am take 1 tablet by mouth once elaine y ferrous sulfate 325 mg (65 mg iron) tablet Take 325 mg by mouth once daily. Active take 1 tablet by mouth twice eligio ly ferrous sulfate 325 (65 Fe) MG tablet TAKE 1 TABLET BY MOUTH TWICE A DAY for 90 0 Active Comment on above: Take 325 mg by mouth once daily. furosemide 20 mg oral tablet (20 sources) Loop Diuretic Start: 01-20-2024 Furosemide Active 40 MG PO Every 48 hours January 20, 2024 3:26pm Start: 09-22-2020 End: 01-20-2024 take 40 mg by mouth once daily Furosemide Discontinued 40 MG PO Daily 60 September 22, 2020 1:00am January 20, 2024 3:30pm See your primary care provider or cardiology for refills Start: 09-10-2020 End: 09-10-2020 Furosemide Discontinued TABL ET September 10, 2020 1:00am September 10, 2020 2:21am Comment on above: [...] solution Ophthalmic for 30 Days 0 Active metFORMIN hydrochloride 500 mg oral tablet (20 sources) Biguanide Start: 11-11-19 take 1 tablet by mouth twice daily metFORMIN (GLUCOPHAGE) 500 mg tablet Take 500 mg by mouth twice daily. 12/12/2021 Active Start: 11-09-2021 End: 11-11-2021 take 500 mg by mouth three times daily Metformin Discontinued 500 MG PO Three times daily November 09, 2021 1:00am November 11, 2021 1:58pm Start: 09-10-2020 End: [...] mg by mouth twice daily. Multivitamin capsule (20 sources) take 1 capsule by mouth once daily Multivitamin capsule Take 1 capsule by mouth once daily. Active take 1 capsule by mouth once eligio ly Multivitamin capsule Take 1 capsule by mouth once daily. 0 Active Comment on above: Take 1 capsule by [facility] once daily. Multivitamin preparation (4 sources) Start: 09-10-2020 take 1 tablet by mouth once daily Multivitamin Active 1 TAB PO Daily September 10, 2020 1:59am Start: 09-10-2020 End: 01-20-2024 take 1 tablet by mouth once daily Multivitamin Discontinued 1 TAB PO Daily September 10, 2020 1:00am January 20, 2024 3:29pm ofloxacin 3 mg/ml ophthalmic solution (1 source) Quinolone Antimicrobial Start: 10-31-2023 End: 11-01-2023 take 1 drop(s) into the eye(s) five times daily ofloxacin (Ocuflox) 0.3 % ophthalmic solution Indications: Age-related nuclear cataract of left eye Administer 1 drop into the right eye 5 (five) times a day for 1 day Starting 1 day before surgery, continue after surgery as directed 5 mL 1 10/31/2023 11/01/2023 Active omeprazole 40 mg delayed release oral capsule (20 sources) Proton Pump Inhibitor Start: 04-08-2021 take 1 capsule by mouth once daily omeprazole (PRILOSEC) 40 mg capsule Take 40 mg by mouth once daily. 04/08/2021 Active Start: 09-10-2020 End: 09-15-2020 take 1 capsule by mouth once daily omeprazole (PRILOSEC) 40 mg capsule Take 40 mg by mouth once daily. 0 04/08/2021 Active Comment on above: Take 40 mg by mouth once daily. potassium chloride 10 meq extended release oral tablet (20 sources) Start: 09-22-20 20 potassium chloride (K-TAB) 10 mEq tablet 09/22/2020 Active Comment on above: Potassium Chloride A ctive 10 MEQ PO Daily September 22, 2020 12:10pm See your primary care provider or cardiology for refills 12 hr propafenone hydrochloride 325 mg extended release oral capsule (20 sources) Antiarrhythmic Start: 12-08-19 23 take 1 capsule by mouth every twelve hours propafenone SR (Rythmol SR) 325 MG 12 hr capsule Take 1 capsule by mouth every 12 (twelve) hours 0 12/07/2022 Active Start: 11-09-2021 take 325 mg by mouth twice daily Propafenone Active 325 MG PO Twice daily November 09, 2021 1:00am Start: 04-12-2021 take 1 capsule by mo [facility] every twelve hours, then take 1 capsule by mouth every twelve hours propafenone SR (RYTHMOL SR) 325 mg 12 hr capsule Take 325 mg by mouth q 12 HR. 04/12/2021 Active Start: 09-19-2020 End: 09-19-2020 Propafenone Discontinued MG PO September 19, 2020 1:00am September 19, 2020 1:23pm Start: 09-10-2020 End: 09-10-2020 Propafenone Discontinued MG PO September 10, 2020 1:00am September 10, 2020 2:21am Start: 09-10-2020 End: 11-09-2021 take 225 mg by mouth twice daily Propafenone Discontinued 225 MG PO Twice daily 60 September 15, 2020 5:27pm November 09, 2021 8:15pm Comment on above: Take 325 mg by mouth q 12 HR. Completed/Discontinued Medications Medication Drug Class(es) Dates Sig (Normalized) Sig (Original) acetaminophen 325 mg oral capsule (4 sources) Start: 09-10-2020 End: 11-09-2021 take 2 capsules by mouth every four hours Acetaminophen (Tylenol) 325 mg Capsule Discontinued 650 MG PO Q4H September 10, 2020 1:00am November 09, 2021 7:27pm [id number] 200 actuat albuterol 0.09 mg/actuat metered dose inhaler (8 sources) beta2-Adrenergic Agonist Start: 09-15-2020 End: 11-09-2021 Albuterol Sulfate (Ventolin Hfa) 90 mcg/actuation HFA aerosol inhaler Discontinued 2 INH INHALATION EVERY 4-6 HOURS 8.5 September 15, 2020 1:00am November 09, 2021 7:27pm Start: 09-10-2020 End: 09-15-2020 take 90 ug by inhalation four times daily Albuterol Discontinued 90 MCG INHALATION Four times daily September 10, 2020 1:30am September 15, 2020 12:43pm 2 puffs Start: 09-10-2020 End: 09-15-2020 take 90 ug by inhalation four times daily Albuterol Discontinued 90 MCG INHALATION Four times daily September 10, 2020 1:00am September 15, 2020 12:43pm 2 puffs alogliptin 25 mg oral tablet (4 sources) Start: 09-10-2020 End: 09-10-2020 take 25 mg by mouth once daily Alogliptin Discontinued 25 MG PO Daily September 10, 2020 1:00am September 10, 2020 2:18am aluminum hydroxide 40 mg/ml / magnesium hydroxide 40 mg/ml / simethicone 4 mg/ml oral suspension (4 sources) Start: 09-10-2020 End: 09-19-2020 take 1 mL by mouth every four hours Alum-Mag Hydroxide-Simeth Discontinued 30 ML PO Q4H September 10, 2020 1:00am September 19, 2020 1:20pm amoxicillin 875 mg / clavulanate 125 mg oral tablet (8 sources) Penicillin-class Antibacterial Start: 09-10-2020 End: 09-22-2020 take 1 tablet by mouth every twelve hours Amoxicillin-Pot Clavulanate (Augmentin) 875-125 mg Tablet Discontinued 1 TAB PO Q12H 10 September 15, 2020 12:42pm September 22, 2020 1:11pm Stop date 09/20/20 bimatoprost 0.1 mg/ml ophthalmic solution (20 sources) Prostaglandin Analog Start: 11-09-2021 End: 01-20-2024 take 0.01 drop(s) into the eye(s) once daily in the evening Bimatoprost (Lumigan) 0.01 % Drops Discontinued 1 DROPS EYE-BOTH Every evening November 09, 2021 1:00am January 20, 2024 3:28pm bimatoprost (LUM IGAN) 0.01 % drop ophthalmic drops 1 Drop as directed. Active Comment on above: 1 Drop as directed. bisacodyl 10 mg rectal suppository (4 sources) Stimulant Laxative Start: 2019 End: 2019 Bisacodyl (Dulcolax (Bisacodyl)) 10 mg Suppository Discontinued 10 MG NC Daily September 10, 2020 1:00am September 19, 2020 1:20pm cetirizine hydrochloride 10 mg oral tablet (4 sources) Histamine-1 Receptor Antagonist Start: 2019 End: 2019 take 10 mg by mouth once daily Cetirizine Discontinued 10 MG PO Daily September 10, 2020 1:00am September 22, 2020 1:11pm dexamethasone 6 mg oral tablet (4 sources) Corticosteroid Start: 2019 End: 2019 take 6 mg by mouth once daily Dexamethasone Discontinued 6 MG PO Daily 5 September 15, 2020 1:00am September 22, 2020 1:11pm end 09/20 dextromethorphan hydrobromide 1 mg/ml / guaiFENesin 20 mg/ml oral solution (4 sources) Uncompetitive W-gmgzsl-G-aspartate Receptor Antagonist, Sigma-1 Agonist Start: 2019 End: 2019 take 1 mL by mouth every six hours Dextromethorphan-Gua ifenesin (Robitussin Cough-Chest Shadi Dm) 5-100 mg/5 mL Liquid Discontinued 10 ML PO Every 6 hours September 10, 2020 1:00am September 15, 2020 12:43pm dilTIAZem hydrochloride 60 mg oral tablet (4 sources) Calcium Channel Isabel Start: 2019 End: 2019 Diltiazem Hcl Discontinued TABLET September 10, 2020 1:00am September 10, 2020 2:22am ergocalciferol 1.25 mg oral capsule (8 sources) Provitamin D2 Compound Start: 2019 End: 2023 take 1250 ug by mouth every week Ergocalciferol (Vitamin D2) Discontinued 1250 MCG PO every week 8 September 15, 2020 5:27pm January 20, 2024 3:29pm Takes every Saturday flecainide acetate 100 mg oral tablet (4 sources) Antiarrhythmic Start: 2019 End: 2019 take 100 mg by mouth every twelve hours Flecainide Discontinued 100 MG PO Q12H September 10, 2020 1:00am September 15, 2020 12:43pm 120 actuat fluticasone propionate 0.044 mg/actuat metered dose inhaler (8 sources) Corticosteroid Start: 2019 End: 2021 take 1 puff(s) by inhalation twice daily Fluticasone Propionate Discontinued 2 PUFF INHALATION Twice daily 10.6 September 15, 2020 5:27pm February 17th, 2022 7:27pm hydrALAZINE hydrochloride 100 mg oral tablet (4 sources) Arteriolar Vasodilator Start: 2019 End: 2019 Hydralazine Discontinued TABLET September 10, 2020 1:00am September 10, 2020 2:21am hyoscyamine sulfate 0.125 mg oral tablet (4 sources) Start: 2019 End: 2019 take 1 tablet by mouth four times daily Hyoscyamine Sulfate (Levsin) 0.125 mg Tablet Discontinued 0.125 MG PO Four times daily September 10, 2020 1:00am September 15, 2020 12:43pm Insulin Aspart U-100 (Novolog Flexpen U-100 Insulin) 100 unit/mL (3 mL) Insulin Pen (8 sources) Start: 2019 End: 2019 Insulin Aspart U-100 (Novolog Flexpen U-100 Insulin) [...] 10, 2020 1:30am September 10, 2020 2:21am Start: 09-10-2020 End: 09-10-2020 inject 100 [IU] by subcutaneous injection at bedtime Insulin Aspart U-100 (Novolog Flexpen U-100 Insulin) 100 unit/mL (3 mL) Insulin Pen Discontinued SUBCUT Before meals and at bedtime September 10, 2020 1:00am September 10, 2020 2:21am Start: 09-10-2020 End: 09-15-2020 Insulin Aspart U-100 (Novolo g Flexpen U-100 Insulin) 100 unit/mL (3 mL) Insulin Pen Discontinued 0 UNIT SUBCUT Before meals and at bedtime September 10, 2020 1:00am September 15, 2020 5:21pm irbesartan (4 sources) Angiotensin 2 Receptor Isabel Start: 09-10-2020 End: 09-10-2020 Irbesartan Discontinued MG TABLET September 10, 2020 2:05am September 10, 2020 2:21am Start: 09-10-2020 End: 09-10-2020 Irbesartan Discontinued MG T ABLET September 10, 2020 1:00am September 10, 2020 2:21am lactobacillus acidophilus [id number] unt / pectin 10 mg oral capsule (4 sources) Start: 09-10-2020 End: 09-19-2020 take 1 capsule by mouth four times daily Acidophilus-Pectin, [place] (Acidophilus Probiotic) 100 million cell-10 mg Capsule Discontinued 1 CAP PO Four times daily September 10, 2020 1:00am September 19, 2020 1:20pm Stop date 09/10/20 Magnesium Hydroxide (4 sources) Start: 09-10-2020 End: 09-19-2020 take 1 mL by mouth once daily Magnesium Hydroxide (Milk Of Magnesia) 400 mg/5 mL Suspension Discontinued 30 ML PO Daily September 10, 2020 1:27am September 19, 2020 1:20pm Start: 09-10-2020 End: 09-19-2020 take 1 mL by mouth once daily Magnesium Hydroxide (Mil k Of Magnesia) 400 mg/5 mL Suspension Discontinued 30 ML PO Daily September 10, 2020 1:00am September 19, 2020 1:20pm nitroglycerin 0.4 mg sublingual tablet (4 sources) Nitrate Vasodilator Start: 09-10-2020 End: 11-09-2021 Nitroglycerin Discontinued 0.4 MG SUBLINGUAL Every 5 minutes x 3 doses September 10, 2020 1:00am November 09, 2021 7:27pm ondansetron 4 mg oral tablet (4 sources) Serotonin-3 Receptor Antagonist Start: 09-10-2020 End: 09-15-2020 take 1 tablet by mouth every six hours Ondansetron Hcl (Zofran) 4 mg Tablet Discontinued 4 MG PO Q6H September 10, 2020 1:00am September 15, 2020 12:43pm pioglitazone 30 mg oral tablet (8 sources) Peroxisome Proliferator Receptor alpha Agonist, Peroxisome Proliferator Receptor gamma Agonist, Thiazolidinedione Start: 09-10-2020 End: 09-15-2020 take 30 mg by mouth once daily Pioglitazone Discontinued 30 MG PO Daily September 10, 2020 1:00am September 15, 2020 12:43pm Start: 09-10-2020 End: 09-10-2020 Pioglitazone Discontinued MG TABLET September 10, 2020 1:00am September 10, 2020 2:21am polyethylene glycol 3350 57903 mg powder for oral solution (4 sources) Osmotic Laxative Start: 09-10-2020 End: 09-19-2020 Polyethylene Glycol 3350 (Miralax) 17 gram Powder In Packet Discontinued 17 GM PO Daily September 10, 2020 1:00am September 19, 2020 1:20pm predniSONE 10 mg oral tablet (4 sources) Start: 09-10-2020 End: 09-15-2020 take 10 mg by mouth three times daily Prednisone Discontinued 10 MG PO Three times daily September 10, 2020 1:00am September 15, 2020 12:43pm rivaroxaban 20 mg oral tablet (20 sources) Factor Xa Inhibitor Start: 09-10-2020 End: 04-16-2024 take 1 tablet by mouth once daily Rivaroxaban (Xarelto) 20 mg Tablet Discontinued 20 MG PO Daily September 15, 2020 5:27pm November 09, 2021 7:27pm Comment on above: Take 20 mg by mouth daily with dinner. SITagliptin 100 mg oral tablet (12 sources) Dipeptidyl Peptidase 4 Inhibitor Start: 09-10-2020 End: 11-09-2021 take 100 mg by mouth once daily Sitagliptin Phosphate Discontinued 100 MG PO Daily September 15, 2020 5:27pm November 09, 2021 7:27pm sodium phosphate, dibasic 59.3 mg/ml / sodium phosphate, monobasic 161 mg/ml enema (4 sources) Start: 09-10-2020 End: 09-19-2020 Sodium Phosphates (Fleet Enema) 19-7 gram/118 mL Enema Discontinued 118 ML NC Daily September 10, 2020 1:00am September 19, 2020 1:20pm Travoprost (Travatan Z) 0.004 % Drops (8 sources) Start: 09-15-2020 End: 11-09-2021 take 0.004 [...] 10, 2020 1:59am September 15, 2020 5:29pm Start: 09-10-2020 End: 09-15-2020 take 0.004 drop(s) into the eye(s) once daily in the evening Travoprost (Travatan Z) 0.004 % Drops Discontinued 1 DROPS EYE-BOTH Every evening September 10, 2020 1:00am September 15, 2020 5:29pm warfarin sodium 5 mg oral tablet (6 sources) Vitamin K Antagonist Start: 11-09-2021 End: 11-11-2021 take 5 mg by mouth once daily Warfarin Discontinued 5 MG PO Daily November 09, 2021 1:00am November 11, 2021 1:58pm Zinc (8 sources) Start: 09-15-2020 End: 09-19-2020 take 50 mg by mouth once daily Zinc Discontinued 50 MG PO Daily September 15, 2020 5:27pm September 19, 2020 1:20pm Start: 09-10-2020 End: 09-15-2020 take 50 mg by mouth once daily Zinc Discontinued 50 MG PO Daily September 10, 2020 1:59am September 15, 2020 5:27pm Start: 09-10-2020 End: 09-15-2020 take 50 mg by mouth once daily Zinc Discontinued 50 MG PO Daily September 10, 2020 1:00am September 15, 2020 5:27pm Problems Active Problems Problem Classification Problem Date Documented Date Episodic/Chronic Acute and unspecified renal failure (1 source) Acute kidney failure, unspecified; Translations: [ACUTE KIDNEY FAILURE UNSPECIFIED] Onset: 2 Episodic Acute cerebrovascular disease (14 sources) Spontaneous cerebral hemorrhage; 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, unspecified] Onset: 2 Resolved: 2 11-10-2021 Chronic Acute posthemorrhagic anemia (1 source) Acute posthemorrhagic anemia; Translations: [Acute blood loss anemia] Onset: 4 Episodic Cancer of breast (20 sources) Malignant neoplasm of upper-outer quadrant of female breast; Translations: [Malignant neoplasm of upper-outer quadrant of left female breast] Onset: 8 Chronic Cancer of breast (1 source) Personal history of malignant neoplasm of breast; Translations: [PERS HX MALIGNANT NEOPLASM BREAST] Onset: 2 Episodic Cardiac dysrhythmias (13 sources) Atrial fibrillation; Translations: [Unspecified atrial fibrillation] Onset: 2 09-13-2020 Chronic Cataract (2 sources) Age-related nuclear cataract of left eye; Translations: [Age-related nuclear cataract, left eye] Onset: 4 10-31-2023 Chronic Chronic kidney disease (20 sources) Chronic kidney disease, stage 2 (mild); Translations: [Chronic kidney disease stage 3] Onset: 2 05-05-2023 Chronic Coagulation and hemorrhagic disorders (1 source) Other primary thrombophilia; Translations: [OTHER PRIMARY THROMBOPHILIA] Onset: 2 Chronic Congestive heart failure; nonhypertensive (9 sources) Acute exacerbation of chronic congestive heart failure; Translations: [Heart failure, unspecified] Onset: 2 09-19-2020 Chronic Diabetes mellitus with complications (7 sources) Type 2 diabetes mellitus with diabetic chronic kidney disease; Translations: [Type 2 diabetes mellitus] Onset: 2 01-20-2024 Chronic Diabetes mellitus without complication (6 sources) Diabetes mellitus; Translations: [Type 2 diabetes mellitus without complications] Onset: 2 11-10-2021 Chronic Disorders of lipid metabolism (11 sources) Pure hypercholesterolemia, unspecified; Translations: [Hyperlipidemia, unspecified] Onset: 2 Chronic E Codes: Unspecified (1 source) Nosocomial condition; Translations: [NOSOCOMIAL CONDITION] Onset: 2 Episodic Essential hypertension (10 sources) Hypertensive disorder; Translations: [Essential (primary) hypertension] Onset: 2 11-10-2021 Chronic Fluid and electrolyte disorders (1 source) Hypokalemia; Translations: [HYPOKALEMIA] Onset: 2 Episodic Gastritis and duodenitis (1 source) Gastritis; Translations: [Gastritis, unspecified, without bleeding] 04-03-2024 Episodic Genitourinary symptoms and ill-defined conditions (3 sources) Proteinuria; Translations: [Proteinuria, unspecified] 02-10-2024 Episodic Glaucoma (2 sources) Primary open angle glaucoma; Translations: [Primary open-angle glaucoma, bilateral, mild stage] Onset: 4 10-31-2023 Chronic Heart valve disorders (4 sources) Nonrheumatic mitral (valve) insufficiency; Translations: [Rheumatic disorders of both mitral and tricuspid valves] Onset: 2 Chronic Hypertension with complications and secondary hypertension (9 sources) Hypertensive heart and chronic kidney disease with heart failure and stage 1 through stage 4 chronic kidney disease, or unspecified chronic kidney disease; Translations: [Hypertensive heart disease with heart failure] Onset: 2 01-20-2024 Chronic Intestinal infection (2 sources) Enterocolitis due to Clostridium difficile, not specified as recurrent; Translations: [Other intestinal Escherichia coli infections] Onset: 2 Episodic Menopausal disorders (20 sources) Menopausal and postmenopausal disorders; Translations: [Other specified menopausal and perimenopausal disorders] Onset: 1 04-20-2021 Chronic Multiple myeloma (2 sources) Multiple myeloma; Translations: [Multiple myeloma not having achieved remission] Onset: 4 03-20-2024 Chronic Neoplasms of unspecified nature or uncertain behavior (7 sources) Monoclonal gammopathy of uncertain significance; Translations: [Monoclonal gammopathy] Onset: 4 02-24-2024 Chronic Nutritional deficiencies (2 sources) Moderate protein-calorie malnutrition; Translations: [Vitamin D deficiency, unspecified] Onset: 2 Chronic Other aftercare (1 source) correction (current) use of oral hypoglycemic drugs; Translations: [RESIDENTIAL USE ORAL HYPOGLYCEMIC DX] Onset: 2 Episodic Other aftercare (1 source) Other remote computer terminal operator (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) drug therapy; Translations: [OTH ACID RETORT OPERATOR CURRENT DRUG THERAPY] Onset: 2 Episodic Other aftercare (1 source) correction (current) use of aspirin; Translations: [RESIDENTIAL CURRENT USE OF ASPIRIN] Onset: 2 Episodic Other aftercare (1 source) correction (current) use of anticoagulants; Translations: [RESIDENTIAL CURRNT USE ANTICOAGULANTS] Onset: 2 Episodic Other aftercare (4 sources) Encounter for therapeutic drug level monitoring; Translations: [ENC THERAPEUTC DRUG LEVL MONITORING] Onset: 2 Episodic Other diseases of kidney and ureters (3 sources) Secondary hyperparathyroidism; Translations: [Secondary hyperparathyroidism of renal origin] 01-20-2024 Chronic Other diseases of kidney and ureters (2 sources) Secondary hyperparathyroidism of renal origin; Translations: [Secondary hyperparathyroidism (of renal origin)] 01-20-2024 Chronic Other diseases of kidney and ureters (1 source) Abnormal renal function; Translations: [Disorder of kidney and ureter, unspecified] 04-02-2024 Episodic Other lower respiratory disease (1 source) Dyspnea; Translations: [Dyspnea, unspecified] Episodic Other lower respiratory disease (1 source) Personal history of pneumonia (recurrent); Translations: [PERSONAL HX OF PNEUMONIA RECURRENT] Onset: 2 Episodic Other nervous system disorders (1 source) Metabolic encephalopathy; Translations: [METABOLIC ENCEPHALOPATHY] Onset: 2 Chronic Other nutritional; endocrine; and metabolic disorders (20 sources) Hypercalcemia; Translations: [Hypercalcemia] Onset: 3 Chronic Other nutritional; endocrine; and metabolic disorders (1 source) Hypercalcemia; Translations: [Hypercalcemia] 02-10-2024 Chronic Other nutritional; endocrine; and metabolic disorders (1 source) Hyperuricemia; Translations: [Hyperuricemia without signs of inflammatory arthritis and tophaceous disease] 02-10-2024 Episodic Other screening for suspected conditions (not mental disorders or infectious disease) (8 sources) Patient encounter status; Translations: [Encounter for screening for osteoporosis] Onset: 2 Episodic Pneumonia (except that caused by tuberculosis or sexually transmitted disease) (7 sources) Pneumonia; Translations: [Pneumonia, unspecified organism] Onset: 2 09-10-2020 Episodic Pulmonary heart disease (3 sources) Pulmonary hypertension, unspecified; Translations: [PULMONARY HYPERTENSION UNSPECIFIED] Onset: 2 Chronic Pulmonary heart disease (4 sources) Pulmonary embolism; Translations: [Other pulmonary embolism without acute cor pulmonale] 09-10-2020 Episodic Residual codes; unclassified (1 source) Body mass index (BMI) 22.0-22.9, adult; Translations: [BODY MASS INDEX BMI 22.0-22.9 ADULT] Onset: 2 Episodic Respiratory failure; insufficiency; arrest (adult) (1 source) Dependence on supplemental oxygen; Translations: [DEPENDENCE ON SUPPLEMENTAL OXYGEN] Onset: 2 Chronic Respiratory failure; insufficiency; arrest (adult) (5 sources) Acute hypoxemic respiratory failure; Translations: [Acute respiratory failure with hypoxia] Onset: 2 09-10-2020 Episodic Septicemia (except in labor) (8 sources) Sepsis; Translations: [Sepsis, unspecified organism] Onset: 2 09-10-2020 Episodic Unclassified (1 source) PERSONAL HISTORY OF COVID-19; Translations: [PERSONAL HISTORY OF COVID-19] Onset: 2 Unclassified (1 source) CONTACT W/AND (SUSP) EXPOS COVID-19; Translations: [CONTACT W/AND (SUSP) EXPOS COVID-19] Onset: 2 Unclassified (1 source) CHRN KIDNEY DISEASE STG 3 UNSP; Translations: [CHRN KIDNEY DISEASE STG 3 UNSP] Onset: 2 Unclassified (1 source) PRIMARY OSTEOARTHRITS OTH SPEC SITE; Translations: [PRIMARY OSTEOARTHRITS OTH SPEC SITE] Onset: 2 Viral infection (4 sources) Disease caused by 2019-nCoV; Translations: [COVID-19] 09-19-2020 Episodic Past or Other Problems Problem Classification Problem Date Documented Da te Episodic/Chronic Deficiency and other anemia (1 source) Anemia, unspecified; Translations: [ANEMIA UNSPECIFIED] Onset: 01-11-2022 Episodic Diabetes mellitus without complication (1 source) Other abnormal glucose; Translations: [OTHER ABNORMAL GLUCOSE] Onset: 01-11-2022 Episodic Malaise and fatigue (1 source) Weakness; Translations: [WEAKNESS] Onset: 05-21-2022 Episodic Other circulatory disease (2 sources) Personal history of other diseases of the circulatory system; Translations: [Personal history of other diseases of the circulatory system] Onset: 09-04-2022 Episodic Other connective tissue disease (2 sources) Repeated falls; Translations: [Repeated falls] Onset: 10-16-2023 Episodic Other diseases of kidney and ureters (2 sources) Disorder of kidney and ureter, unspecified; Translations: [Disorder of kidney and ureter, unspecified] Onset: 04-01-2023 Episodic Other gastrointestinal disorders (1 source) Full incontinence of feces; Translations: [FULL INCONTINENCE OF FECES] Onset: 01-16-2022 Episodic Other nervous system disorders (2 sources) Other abnormalities of gait and mobility; Translations: [Other abnormalities of gait and mobility] Onset: 10-16-2023 Episodic Other non-traumatic joint disorders (4 sources) [...] Test Name Value Interpretation Reference Range Facility Capillary blood glucose missy urement by glucometer (mass/volume)Ordered By: Amanda Contreras on 05-26-2024 Glucose [Mass/Vol] 114 mg/dL Normal [facility] Comment on above: Random Glucose Refer ence Range is dependent on time and content of last meal. Glucose of more than 200 mg/dL in a nonstressed, ambulatory subject supports the diagnosis of Diabetes Mellitus. Result Comment: [place] om Glucose Reference Range is dependent on time and content of last meal. Glucose of more than 200 mg/dL in a nonstressed, ambulatory subject supports the diagnosis of Diabetes Mellitus. Performed By: #### G LULS #### Point of Care testing , Glucose Poct Glucometerson 0 05-26-2024 Commemt1 Glu2: Cleaned Meter Normal [facility] Comment on above: Result Comment: PERF ORMED BY: [facility] [address] [place] [address] PATHOLOGIST CREELER ADRIAN ROBERTSON M.D. Performed By: #### G LULS #### Point of Care testing , Isaac 05-26-2024 L Specimen: [id number] Received: 05/26/24 Status: DELMY Moon Num: [id number] Spec Type: Surgical Subm Dr: Amanda Contreras, DO Tissues: A Gastric Biopsy (GASTRIC POLYP) B GASTRIC FOR HP (GASTRIC BX R/O H PYLORI) Procedures: HE/9, Gross/Micro L4/2, H PYLORI Age/ Patient Sex Location Account Attending Physician Andrew Barros 78/F [id number] Amanda Contreras DO SPEC NUM: [id number] RECD: 05/26/24 STATUS: DELMY EDWIN NUM: [id number] JOANNA: 05/26/[address]: Amanda Contreras DO ENTERED: 05/26/24-[address] [facility] [address]: SPEC TYPE: Surgical DEPT: S ENTERED BY: [id number] RECV BY: [id number] ORDERED: HE/9, Gross/Micro L4/2, H PYLORI ORDERED: HE/9, Gross/Micro L4/2, H PYLORI Pathological Diagnosis A. Polyp, stomach, biopsy: Hyperplastic polyp. B. Stomach, Biopsy: Reactive/ Chemical Gastropathy with hyperplastic changes. - H. Pylori Immunostain Is Negative For H. Pylori Organisms. Clinical Information Abdominal normal PET/CT Gross Description Part A is received in formalin with the patient's name and gastric polyp and consists of 2 daniels soft tissue fragment ranging in size from 0.2 to 0.3 cm. The specimen is entirely submitted in cassette A1. Part B is received in formalin with the patient's name and gastric biopsy and consists of multiple daniels soft tissue fragment ranging in size from 0.2 to 0.4 cm. The specimen is entirely submitted in cassette B1. Specimen: [id number] Received: 05/26/24 Status: DELMY Moon Num: [id number] Spec Type: Surgical Subm Dr: Amanda Contreras DO Tissues: A Gastric Biopsy (GASTRIC POLYP) B GASTRIC FOR HP (GASTRIC BX R/O H PYLORI) Procedures: HE/9, Gross/Micro L4/2, H PYLORI Patient: Andrew Barros [id number] (Continued) Specimen: [id number] Received: 05/26/24 (Continued) Signed (signature on file) Zbigniew Hurst MD 06/04/24 182 Specimen: [id number] Received: 05/26/24 Status: DELMY Moon Num: [id number] Spec Type: Surgical Subm Dr: Amanda Contreras DO Tissues: A Gastric Biopsy (GASTRIC POLYP) B GASTRIC FOR HP (GASTRIC BX R/O H PYLORI) Procedures: TY/Ayan, Gross/Micro L4/2, H PYLORI Patient: Andrew Barros [id number] (Continued) Specimen: [id number] Received: 05/26/24 (Continued) CPT Codes [id number] Specimen: [id number] Received: 05/26/24 Status: DELMY Edwin Num: [id number] Spec Type: Surgical Subm Dr: Amanda Contreras DO Tissues: A Gastric Biopsy (GASTRIC POLYP) B GASTRIC FOR HP (GASTRIC BX R/O H PYLORI) Procedures: HE/9, Gross/Micro L4/2, H PYLORI Patient: Andrew Barros [id number] (Continued) Signed (signature on file) Zbigniew Hurst MD 06/04/24 1822 Normal [facility] No Panel InformationOrdered By: Amanda Contreras on 05-26-2024 Bedside Glucose Comment Glu2: cleaned meter [facility] CNPNon 05-05-2024 CNPN Telephone ([facility]) ----- ANDREW BARROS ([id number]) 1945 F Date Time Provider Department 05/05/24 RE BALLESTEROS JR [facility] During your visit today, we recorded the following information about you: Anahy Masterson 05/05/2024 9:45 AM Signed Call center calling for assistance with scheduling this patient. Called and LMOM for patient's daughter Janki - [phone] - patient needs to be scheduled with Favian. Sachin Marsh 05/07/2024 1:30 PM Signed Left message on voicemail for patients daughter to call and schedule Sachin Marsh 05/08/2024 2:23 PM Signed Final attempt left message on voicemail for daughter to call and schedule Allergies As of Date: 05/05/2024 Noted Allergy Reaction [id number] REDUCTASE INHIBIT*01/21/2018 16 - Unknown Comments: Other reaction(s): AOF Date Reviewed: 04/17/2024 Reviewed by: Cheyenne Ram RN - Fully Assessed Reason for Visit: Schedule Surgery [1330] Prescriptions as of 05/08/2024 - anastrozole (ARIMIDEX) 1 mg tablet TAKE 1 TABLET BY MOUTH EVERY DAY - doxazosin (CARDURA) 4 mg tablet Take 4 mg by mouth daily at bedtime. Takes 2mg in morning then 4mg at night - ferrous sulfate 325 mg (65 mg [...] - potassium chloride (K-TAB) 10 mEq tablet - omeprazole (PRILOSEC) 40 mg capsule Take 40 mg by mouth once daily. - calcium-cholecalciferol, D3, (OSCAL+D 250) 250-125 mg-unit per tablet Take 1 tablet by mouth twice daily. - ezetimibe (ZETIA) 10 mg tablet Take 10 mg by mouth once daily. - carvedilol (COREG) 25 mg tablet Take 25 mg by mouth as directed. Takes 1 1/2 tablet 2x a day - Multivitamin capsule Take 1 capsule by mouth once daily. - furosemide (LASIX) 40 mg tablet Take 40 mg by mouth once daily. Alternates with 20mg Problem List As Of Date 05/05/2024 Noted Resolved Malignant neoplasm of upper-outer quadrant of l*06/12/2018 Other specified menopausal and perimenopausal d*04/20/2021 Hypercalcemia [E83.52] 04/29/2023 Stage 3 chronic kidney disease, unspecified whe*05/05/2023 CKD (chronic kidney disease) [N18.9] 04/16/2024 Status post biopsy of kidney [Z98.890] 04/17/2024 Monoclonal gammopathy of unknown significance (*04/17/2024 Encounter Status:Closed by SACHIN MARSH on 05/08/24 Normal [facility] Hematocrit Auto (Bld) [Volum e fraction]on 04-23-2024 Hematocrit (Bld) [Volume fraction] 31.5 % Low 36.0-46.0 [facility] Comment on above: Order Comment: Speci men Type: BLOOD SPECIMENOrdering Facility: [facility] Address: [address] [place] [address] Performed By: #### 7 18-7, 4544-3 ####[facility] LABCL[facility] [id number] [place] [address] Hgb Bld-mCncon 04-23-2024 Hemoglobin (Bld) [Mass/Vol] 10.4 g/dL Low 11.5-15.5 [facility] Comment on above: Order Comment: Speci men Type: BLOOD SPECIMENOrdering Facility: [facility] Address: [address] [place] [address] Performed By: #### 7 18-7, 4544-3 ####[facility] LABCLIA [id number] [place] [address] CBC panel Auto (Bld)on 04-20 Erythrocyte distribution width (RBC) [Ratio] 12.8 % Normal 11.5-15.0 [facility] Comment on above: Order Comment: Speci men Type: BLOOD SPECIMEN Ordering Facility: [facility] Address: [address] [place] [address] Performed By: #### 1 952-1, 2885-2 #### [facility] CLIA [id number] [address] [place] [address] [place] Hematocrit (Bld) [Volume fraction] 30.7 % Low 36.0-46.0 [facility] Comment on above: Order Comment: Speci men Type: BLOOD SPECIMEN Ordering Facility: [facility] Address: [address] [place] [address] Performed By: #### 1 952-1, 2885-2 #### [facility] CLIA [id number] [address] [place] [address] [place] Hemoglobin (Bld) [Mass/Vol] 10.0 g/dL Low 11.5-15.5 [facility] Comment on above: Order Comment: Speci men Type: BLOOD SPECIMEN Ordering Facility: [facility] Address: [address] [place] [address] Performed By: #### 1 952-1, 288-2 #### [facility] CLIA [id number] [address] [place] [address] [place] MCH (RBC) [Entitic mass] 30.5 pg Normal 26.0-34.0 [facility] Comment on above: Order Comment: Speci men Type: BLOOD SPECIMEN Ordering Facility: [facility] Address: [address] [place] [address] Performed By: #### 1 952-1, 288-2 #### [facility] CLIA [id number] [address] [place] [address] [place] MCHC (RBC) [Mass/Vol] 32.6 g/dL Normal 30.5-36.0 [facility] Comment on above: Order Comment: Speci men Type: BLOOD SPECIMEN Ordering Facility: [facility] Address: [address] [place] [address] Performed By: #### 1 952-, 288-2 #### [facility] CLIA [id number] [address] [place] [address] [place] MCV (RBC) [Entitic vol] 93.6 fL Normal 80.0-100.0 [facility] Comment on above: Order Comment: Speci men Type: BLOOD SPECIMEN Ordering Facility: [facility] Address: [address] [place] [address] Performed By: #### 1 952-1, 288-2 #### [facility] CLIA [id number] [address] [place] [address] [place] Nucleated RBC (Bld) [#/Vol] 10*3/uL Normal <0.01 [facility] Comment on above: Order Comment: Speci men Type: BLOOD SPECIMEN Ordering Facility: [facility] Address: [address] [place] [address] Performed By: #### 1 952-1, 2885-2 #### [facility] CLIA [id number] [address] [place] [address] [place] Platelet mean volume (Bld) [Entitic vol] 10.1 fL Normal 9.0-12.7 [facility] Comment on above: Order Comment: Speci men Type: BLOOD SPECIMEN Ordering Facility: [facility] Address: [address] [place] [address] Performed By: #### 1 952-1, 2885-2 #### [facility] CLIA [id number] [address] [place] [address] [place] Platelets (Bld) [#/Vol] 280 10*3/uL Normal 150-400 [facility] Comment on above: Order Comment: Speci men Type: BLOOD SPECIMEN Ordering Facility: [facility] Address: [address] [place] [address] Performed By: #### 1 952-1, 2885-2 #### [facility] CLIA [id number] [address] [place] [address] [place] RBC (Bld) [#/Vol] 3.28 10*6/uL Low 3.90-5.20 [facility] Comment on above: Order Comment: Speci men Type: BLOOD SPECIMEN Ordering Facility: [facility] Address: [address] [place] [address] Performed By: #### 1 952-1, 2885-2 #### [facility] CLIA [id number] [address] [place] [address] [place] WBC (Bld) [#/Vol] 10.77 10*3/uL Normal 3.70-11.00 [facility] Comment on above: Order Comment: Speci men Type: BLOOD SPECIMEN Ordering Facility: [facility] Address: [address] [place] [address] Performed By: #### 1 952-1, 2885-2 #### [facility] CLIA [id number] [address] [place] [address] [place] Rita 04-20-2024 CNPN Telephone ([facility]) ----- PAPOANDREW Haile ([id number]) 1945 F Date Time Provider Department 04/20/24 CLEMENTE SRIVASTAVA During your visit today, we recorded the following information about you: Clemente Srivastava RN 04/20/2024 11:08 AM Signed ----- Message from Sandeep Lenz MD sent at 04/19/2024 7:16 PM EDT ----- I think she had some post-op complications (post biopsy) - path is still pending. We should get a h/h this week - maybe a couple of times please. Orders placed. Nephrology Plan of Care Known bleeding post biopsy and significant drop in hemoglobin. BP is stable around 120/60 now but was 180/70 on presentation. Concern would be for expansion of perinephric hematoma and if not actively bleeding would like to characterize baseline in case anemia worsens. Will add another hemoglobin check this morning to establish stability. Clemente Srivastava RN 04/20/2024 11:11 AM Signed Pt daughter aware and reports pt had been previously scheduled for lab recheck today at 115 at our facility. Ordered by Primitivo Andrade MD. She is aware of additional standing orders placed by Dr Perry, and that he will check today's results, and provide plan of care. Will watch for results and have Orlando review and update plan JARRET Grimaldo Natalie, RN 04/20/2024 1:50 PM Signed Orlando: please review today's lab and advise JARRET Grimaldo Vivek, MD 04/20/2024 10:35 PM Signed CBC stable, let's recheck on Saturday or , Please. Clemente Srivastava RN 04/21/2024 9:37 AM Signed Daughter, Rosenda updated and agrees to bring in Saturday or for recheck. Prefers to walk in with their schedules. Clemente Srivastava RN Allergies As of Date: 04/20/2024 Noted Allergy Reaction [id number] REDUCTASE INHIBIT*01/21/2018 16 - Unknown Comments: Other reaction(s): AOF Date Reviewed: 04/17/2024 Reviewed by: Cheyenne Ram RN - Fully Assessed Reason for Visit: Results [95] repeat CBC for H/H [Other] Prescriptions as of 04/21/2024 - anastrozole (ARIMIDEX) 1 mg tablet TAKE 1 TABLET BY MOUTH EVERY DAY - doxazosin (CARDURA) 4 mg tablet Take 4 mg by mouth daily at bedtime. Takes 2mg in morning then 4mg at night - ferrous sulfate 325 mg (65 mg [...] - potassium chloride (K-TAB) 10 mEq tablet - omeprazole (PRILOSEC) 40 mg capsule Take 40 mg by mouth once daily. - calcium-cholecalciferol, D3, (OSCAL+D 250) 250-125 mg-unit per tablet Take 1 tablet by mouth twice daily. - ezetimibe (ZETIA) 10 mg tablet Take 10 mg by mouth once daily. - carvedilol (COREG) 25 mg tablet Take 25 mg by mouth as directed. Takes 1 1/2 tablet 2x a day - Multivitamin capsule Take 1 capsule by mouth once daily. - furosemide (LASIX) 40 mg tablet Take 40 mg by mouth once daily. Alternates with 20mg Problem List As Of Date 04/20/2024 Noted Resolved Malignant neoplasm of upper-outer quadrant of l*06/12/2018 Other specified menopausal and perimenopausal d*04/20/2021 Hypercalcemia [E83.52] 04/29/2023 Stage 3 chronic kidney disease, unspecified whe*05/05/2023 CKD (chronic kidney disease) [N18.9] 04/16/2024 Status post biopsy of kidney [Z98.890] 04/17/2024 Monoclonal gammopathy of unknown significance (*04/17/2024 Encounter Status:Closed by CLEMENTE SRIVASTAVA on 04/21/24 Normal [facility] CBC panel Auto (Bld)on 04-17 Erythrocyte distribution width (RBC) [Ratio] 12.9 % Normal 11.5-15.0 [facility] Comment on above: Order Comment: Anastacio bonilla Type: BLOOD SPECIMEN Ordering Facility: [facility] Address: [address] [place] [address] Performed By: #### 1 952-1, 2885-2 #### [facility] CLIA [id number] [address] [place] [address] [place] Hematocrit (Bld) [Volume fraction] 31.6 % Low 36.0-46.0 [facility] Comment on above: Order Comment: Anastacio bonilla Type: BLOOD SPECIMEN Ordering Facility: [facility] Address: [address] [place] [address] Performed By: #### 1 952-1, 2885-2 #### [facility] CLIA [id number] [address] [place] [address] [place] Hemoglobin (Bld) [Mass/Vol] 10.5 g/dL Low 11.5-15.5 [facility] Comment on above: Order Comment: Anastacio bonilla Type: BLOOD SPECIMEN Ordering Facility: [facility] Address: [address] [place] [address] Performed By: #### 1 952-1, 2885-2 #### [facility] CLIA [id number] [address] [place] [address] [place] MCH (RBC) [Entitic mass] 30.5 pg Normal 26.0-34.0 [facility] Comment on above: Order Comment: Speci men Type: BLOOD SPECIMEN Ordering Facility: [facility] Address: [address] [place] [address] Performed By: #### 1 952-1, 288-2 #### [facility] CLIA [id number] [address] [place] [address] [place] MCHC (RBC) [Mass/Vol] 33.2 g/dL Normal 30.5-36.0 [facility] Comment on above: Order Comment: Speci men Type: BLOOD SPECIMEN Ordering Facility: [facility] Address: [address] [place] [address] Performed By: #### 1 952-1, 288-2 #### [facility] CLIA [id number] [address] [place] [address] [place] MCV (RBC) [Entitic vol] 91.9 fL Normal 80.0-100.0 [facility] Comment on above: Order Comment: Speci men Type: BLOOD SPECIMEN Ordering Facility: [facility] Address: [address] [place] [address] Performed By: #### 1 952-, 288-2 #### [facility] CLIA [id number] [address] [place] [address] [place] Nucleated RBC (Bld) [#/Vol] 10*3/uL Normal <0.01 [facility] Comment on above: Order Comment: Speci men Type: BLOOD SPECIMEN Ordering Facility: [facility] Address: [address] [place] [address] Performed By: #### 1 952-, 288-2 #### [facility] CLIA [id number] [address] [place] [address] [place] Platelet mean volume (Bld) [Entitic vol] 10.6 fL Normal 9.0-12.7 [facility] Comment on above: Order Comment: Speci men Type: BLOOD SPECIMEN Ordering Facility: [facility] Address: [address] [place] [address] Performed By: #### 1 952-1, 2885-2 #### [facility] CLIA [id number] [address] [place] [address] [place] Platelets (Bld) [#/Vol] 248 10*3/uL Normal 150-400 [facility] Comment on above: Order Comment: Speci men Type: BLOOD SPECIMEN Ordering Facility: [facility] Address: [address] [place] [address] Performed By: #### 1 952-1, 288-2 #### [facility] CLIA [id number] [address] [place] [address] [place] RBC (Bld) [#/Vol] 3.44 10*6/uL Low 3.90-5.20 [facility] Comment on above: Order Comment: Speci men Type: BLOOD SPECIMEN Ordering Facility: [facility] Address: [address] [place] [address] Performed By: #### 1 952-1, 288-2 #### [facility] CLIA [id number] [address] [place] [address] [place] WBC (Bld) [#/Vol] 10.59 10*3/uL Normal 3.70-11.00 [facility] Comment on above: Order Comment: Speci men Type: BLOOD SPECIMEN Ordering Facility: [facility] Address: [address] [place] [address] Performed By: #### 1 952-1, 288-2 #### [facility] CLIA [id number] [address] [place] [address] [place] Erythrocyte distribution width (RBC) [Ratio] 13.1 % Normal 11.5-15.0 [facility] Comment on above: Order Comment: Speci men Type: BLOOD SPECIMENOrdering Facility: [facility] Address: [address] [place] [address] Performed By: #### 5 8410-2 ####[facility] [id number] [place] [address] [place] Hematocrit (Bld) [Volume fraction] 32.2 % Low 36.0-46.0 [facility] Comment on above: Order Comment: Speci men Type: BLOOD SPECIMENOrdering Facility: [facility] Address: [address] [place] [address] Performed By: #### 5 8410-2 ####[facility] [id number] [place] [address] [place] Hemoglobin (Bld) [Mass/Vol] 10.7 g/dL Low 11.5-15.5 [facility] Comment on above: Order Comment: Speci men Type: BLOOD SPECIMENOrdering Facility: [facility] Address: [address] [place] [address] Performed By: #### 5 8410-2 ####[facility] [id number] [place] [address] [place] MCH (RBC) [Entitic mass] 30.9 pg Normal 26.0-34.0 [facility] Comment on above: Order Comment: Speci men Type: BLOOD SPECIMENOrdering Facility: [facility] Address: [address] [place] [address] Performed By: #### 5 8410-2 ####[facility] [id number] [place] [address] [place] MCHC (RBC) [Mass/Vol] 33.2 g/dL Normal 30.5-36.0 [facility] Comment on above: Order Comment: Speci men Type: BLOOD SPECIMENOrdering Facility: [facility] Address: [address] [place] [address] Performed By: #### 5 8410-2 ####[facility] [id number] [place] [address] [place] MCV (RBC) [Entitic vol] 93.1 fL Normal 80.0-100.0 [facility] Comment on above: Order Comment: Speci men Type: BLOOD SPECIMENOrdering Facility: [facility] Address: [address] [place] [address] Performed By: #### 5 8410-2 ####[facility] [id number] [place] [address] [place] Nucleated RBC (Bld) [#/Vol] 10*3/uL Normal <0.01 [facility] Comment on above: Order Comment: Speci men Type: BLOOD SPECIMENOrdering Facility: [facility] Address: [address] [place] [address] Performed By: #### 5 8410-2 ####[facility] [id number] [place] [address] [place] Platelet mean volume (Bld) [Entitic vol] 10.6 fL Normal 9.0-12.7 [facility] Comment on above: Order Comment: Speci men Type: BLOOD SPECIMENOrdering Facility: [facility] Address: [address] [place] [address] Performed By: #### 5 8410-2 ####[facility] [id number] [place] [address] [place] Platelets (Bld) [#/Vol] 250 10*3/uL Normal 150-400 [facility] Comment on above: Order Comment: Speci men Type: BLOOD SPECIMENOrdering Facility: [facility] Address: [address] [place] [address] Performed By: #### 5 8410-2 ####[facility] [id number] [place] [address] [place] RBC (Bld) [#/Vol] 3.46 10*6/uL Low 3.90-5.20 [facility] Comment on above: Order Comment: Speci men Type: BLOOD SPECIMENOrdering Facility: [facility] Address: [address] [place] [address] Performed By: #### 5 8410-2 ####[facility] [id number] [place] [address] [place] WBC (Bld) [#/Vol] 8.61 10*3/uL Normal 3.70-11.00 [facility] Comment on above: Order Comment: Speci men Type: BLOOD SPECIMENOrdering Facility: [facility] Address: [address] [place] [address] Performed By: #### 5 8410-2 ####[facility] [id number] [place] [address] [place] ABD/PEL WO IVCONon 2023 CT ABD/PEL WO IVCON * * *Final Report* * * DATE OF EXAM: Apr 17 2024 10:09AM [facility] [address]31 - CT ABD/PEL WO IVCON / PROCEDURE REASON: Left perinephric hematoma evaluation, acute anemia post kidney biopsy * * * * Physician Interpretation * * * * EXAMINATION: CT ABDOMEN AND PELVIS WITHOUT IV CONTRAST CLINICAL HISTORY: Left perinephric hematoma evaluation. History of left breast cancer diagnosed 2018 status post lumpectomy and radiation with recent M-spike TECHNIQUE: Non-IV contrast imaging of the abdomen and pelvis was performed using standard technique, scanning from just above the dome of the diaphragm to the symphysis pubis. Unenhanced imaging is limited for the evaluation of some intra-abdominal and pelvic pathology. MQ: CTAPWO_3 Contrast: IV: None CT Radiation dose: Integrated Dose-length product (DLP) for this visit = 344 mGy*cm. CT Dose Reduction Employed: mAs-kVp adjusted based on patient size-age COMPARISON: 04/16/2024 left kidney ultrasound RESULT: Abdomen / Pelvis: Liver: Calcified granulomas otherwise unremarkable Biliary: The gallbladder is unremarkable. Spleen: Calcified granulomas. No splenomegaly. Pancreas: Unremarkable. Adrenals: Normal. Kidneys: No mass, calculus and/or hydronephrosis. GI Tract: No bowel dilation. Lymph Nodes: No lymphadenopathy. Mesentery/peritoneum: No ascites. Retroperitoneum: Approximately 8.9 x 4.8 cm axial by 13 long posterior LEFT retroperitoneal hematoma (3:52, 4:59) with several gas pockets including 1.8 cm region of hemostatic material (3:63) and other smaller iatrogenic gas foci. No significant subcapsular component nor does the hematoma about the renal hilar vessels. There is mild thickening of the overlying musculature likely secondary to blood products/edema. Vasculature: Arterial atherosclerotic disease without aneurysm. Pelvis: Trace simple ascites. Calcified uterine fibroid. Otherwise pelvic viscera unremarkable. Bones/Soft Tissues: No acute abnormality. Lower thorax: Unremarkable. Localizer images: No additional findings. IMPRESSION: Left flank/retroperitoneal post renal biopsy changes with a moderate-sized LEFT retroperitoneal hematoma. No significant renal subcapsular component No fluid collection amenable to percutaneous drain. Construction Job Titles: ANIBAL Transcribe Date/Time: Apr 17 2024 10:14A Dictated by : DONNA KOCH MD This examination was interpreted and the report reviewed and electronically signed by: CHRISSIE LEE MD on Apr 17 2024 12:06PM EST [id number] Normal [facility] HISTORY PHYSICALon HISTORY PHYSICAL HNO ID: [id number] Author: HAYDER AVILA MD Service: Nephrology Author Type: Physician Type: H&P Filed: 04/17/2024 15:53 Note Text: NEPHROLOGY DEPARTMENT POST-PROCEDURE OBSERVATION HISTORY AND PHYSICAL PLEASE DO NOT REMOVE FROM THE CHART OR MODIFY PRINTED COPY Refrigeration Supervisor: Vince Rojo Ordering Physician: Sandeep Lenz PRIMARY CARE PHYSICIAN: Eduardo Sharpe MD HANDP: CC: 78 year old year old female admitted to [facility] for observation following renal biopsy. Underwent US guided left renal biopsy today. Currently denies any symptoms. No pain at biopsy site/hematuria. On strict bed rest now. Plan for daughter's to pick her up tomorrow morning. Admission background: This is a 78-year-old female with past history of breast cancer, CKD 3, atrial fibrillation no longer on anticoagulation after intracranial hemorrhage in 2021, CKD 3, DM2, hypertension, and secondary hyperparathyroidism referred for kidney biopsy per oncology to evaluate for monoclonal gammopathy of renal significance. Last saw her primary accounting professor at [facility] on February 10, 2024. Longstanding CKD was attributed to hypertension and diabetic kidney disease. Creatinine has been stable until recently with fluctuation attributed to hemodynamic changes in setting of diuretics. Kidney ultrasound is noted as being consistent with medical renal disease. She last took aspirin 81 mg the evening prior to arrival. CBC 04/14 showed hemoglobin 12.3. Discussed with interventional radiology that during the procedure there was a small moderate retroperitoneal hematoma that developed immediately following biopsy. A blood patch was performed and Gelfoam was injected. Hemostasis was achieved. Estimated blood loss was 50 mL. On evaluation in a.m. 81-14 she is laying on her back with her knees bent. She is in no acute distress. She is hemodynamically stable on room air. Blood pressure is 141/67. She has not yet voided in the 4-hour since procedure. Her left biopsy site is clean, dry, intact. It was nontender. There is no sign of ecchymosis around the insertion site. Medications reviewed. She confirms she did take aspirin. She has not taken any anticoagulants. ROS: Constitutional:No fevers, chills, weight loss Eyes: No loss in vision, photophobia Ear, Nose, and Throat: No epistaxis, nasal congestion Cardiovascular: No chest pain, RENAE, SOB, palpitations Respiratory: No cough, hemoptysis, dyspena Gastrointestinal: No diarrhea, constipation Genitourinary: No dysuria, polyuria Musculoskeletal: No joint pain, morning stiffness Skin: No rash, no ulcers Neurological: No headaches, seizures, paresthesias Psychiatric: No depression, anxiety Endocrine: No hair loss, no heat intolerance Hematologic: No easy bruising, easy bleeding PAST MEDICAL HISTORY Diagnosis Date Atrial fibrillation (HCC) Brain bleed (HCC) Cancer (HCC) 05/2018 breast cancer Diabetes (HCC) Hyperlipidemia Hypertension Other specified menopausal and perimenopausal disorders 04/20/2021 PAST SURGICAL HISTORY Procedure Laterality Date CATARACT EXTRACTION HX No family history on file. MEDICATIONS: No current facility-administered medications on file prior to encounter. Current Outpatient Medications on File Prior to Encounter Medication Sig doxazosin (CARDURA) 4 mg tablet Take 4 mg by mouth daily at bedtime. Takes 2mg in morning then 4mg at night aspirin (ASPIR-81 ORAL) Take 81 mg by mouth once daily. ferrous sulfate 325 mg (65 mg iron) tablet Take 325 mg by mouth once daily. amLODIPine (NORVASC) 2.5 mg tablet Take 5 mg by mouth twice daily. metFORMIN (GLUCOPHAGE) 500 mg tablet Take 500 mg by mouth twice daily. ezetimibe (ZETIA) 10 mg tablet Take 10 mg by mouth once daily. carvedilol (COREG) 25 mg tablet Take 25 mg by mouth as directed. Takes 1 1/2 tablet 2x a day furosemide (LASIX) 40 mg tablet Take 40 mg by mouth once daily. Alternates with 20mg anastrozole (ARIMIDEX) 1 mg tablet TAKE 1 TABLET BY MOUTH EVERY DAY (Patient not taking: Reported on 02/24/2024) bimatoprost (LUMIGAN) 0.01 % drop ophthalmic drops 1 Drop as directed. propafenone SR (RYTHMOL SR) 325 mg 12 hr capsule Take 325 mg by mouth q 12 HR. potassium chloride (K-TAB) 10 mEq tablet omeprazole (PRILOSEC) 40 mg capsule Take 40 mg by mouth once daily. calcium-cholecalciferol, D3, (OSCAL+D 250) 250-125 mg-unit per tablet Take 1 tablet by mouth twice daily. rivaroxaban (XARELTO) 20 mg tablet Take 20 mg by mouth daily with dinner. (Patient not taking: Reported on 11/25/2023) Multivitamin capsule Take 1 capsule by mouth once daily. (Patient not taking: Reported on 11/25/2023) ALLERGIES: ALLERGIES Allergen Reactions Gshrmgc-Rkg-Jum Red* Unknown Other reaction(s): AOF SOCIAL HISTORY: Social History Tobacco Use Smoking status: Never Passive exposure: Never Smokeless tobacco: Never Substance Use Topics Alcohol use: Yes Comment: very rare Drug use: Not Curren (more content not included)... Normal [facility] BRIEF OP NOTon 04-16-2024 BRIEF OP NOT HNO ID: [id number] Author: PRIMITIVO ANDRADE MD Service: Radiology Author Type: Physician Type: Brief Op Note Filed: 04/16/2024 12:56 Note Text: BRIEF OPERATIVE / PROCEDURE NOTE LOG ID: [id number] SURGERY/PROCEDURE DATE: 04/16/2024 INCISION/PROCEDURE START TIME: 12:18 PM INCISION CLOSE/PROCEDURE END TIME: 12:37 PM SURGEON(S)/PROCEDURALIST( S) AND INSURANCE SALES ASSOCIATE(S): Surgeon(s) and Role: * Primitivo Andrade MD - Primary No Additional Staff SURGERY/PROCEDURE(S): L [place] kidney biopsy ANESTHESIA: Procedural Sedation FINDINGS: Biopsy of the lower pole of the L kidney ESTIMATED BLOOD LOSS: 50 mLs SPECIMENS: 1 core biopsy specimen was obtained, which was evaluated by surg path and deemed adequate. COMPLICATIONS: A small-moderate RP hematoma developed immediately following the biopsy. Upon recognition of the bleeding, I placed an 18 G trocar into the RP and performed an autologous blood patch and injected gel foam to promote hemostasis. Then patient was repositioned L side down with towels under the biopsy site to further encourage hemostasis. CLOSURE TECHNIQUE: Primary PRE-OP/PRE-PROCEDURE DIAGNOSIS: Renal dysfunction, MGUS POST-OP/POST-PROCEDURE DIAGNOSIS: Same as Preop SIGNATURE: Primitivo Andrade MD PATIENT NAME: Andrew Barros DATE: April 16, 2024 TIME: 12:52 PM Normal [facility] CBC panel Auto (Bld)on 04-16 Erythrocyte distribution width (RBC) [Ratio] 13.0 % Normal 11.5-15.0 [facility] Comment on above: Order Comment: Anastacio bonilla Type: BLOOD SPECIMEN Ordering Facility: [facility] Address: [address] [place] [address] Performed By: #### 5 8410-2 #### [facility] CLIA [id number] [address] [place] [address] [place] Hematocrit (Bld) [Volume fraction] 35.5 % Low 36.0-46.0 [facility] Comment on above: Order Comment: Anastacio bonilla Type: BLOOD SPECIMEN Ordering Facility: [facility] Address: [address] [place] [address] Performed By: #### 5 8410-2 #### [facility] CLIA [id number] [address] [place] [address] [place] Hemoglobin (Bld) [Mass/Vol] 11.8 g/dL Normal 11.5-15.5 [facility] Comment on above: Order Comment: Anastacio bonilla Type: BLOOD SPECIMEN Ordering Facility: [facility] Address: [address] [place] [address] Performed By: #### 5 8410-2 #### [facility] CLIA [id number] [address] [place] [address] [place] MCH (RBC) [Entitic mass] 31.1 pg Normal 26.0-34.0 [facility] Comment on above: Order Comment: Speci men Type: BLOOD SPECIMEN Ordering Facility: [facility] Address: [address] [place] [address] Performed By: #### 5 8410-2 #### [facility] CLIA [id number] [address] [place] [address] [place] MCHC (RBC) [Mass/Vol] 33.2 g/dL Normal 30.5-36.0 [facility] Comment on above: Order Comment: Speci men Type: BLOOD SPECIMEN Ordering Facility: [facility] Address: [address] [place] [address] Performed By: #### 5 8410-2 #### [facility] CLIA [id number] [address] [place] [address] [place] MCV (RBC) [Entitic vol] 93.4 fL Normal 80.0-100.0 [facility] Comment on above: Order Comment: Speci men Type: BLOOD SPECIMEN Ordering Facility: [facility] Address: [address] [place] [address] Performed By: #### 5 8410-2 #### [facility] CLIA [id number] [address] [place] [address] [place] Nucleated RBC (Bld) [#/Vol] 10*3/uL Normal <0.01 [facility] Comment on above: Order Comment: Speci men Type: BLOOD SPECIMEN Ordering Facility: [facility] Address: [address] [place] [address] Performed By: #### 5 8410-2 #### [facility] CLIA [id number] [address] [place] [address] [place] Platelet mean volume (Bld) [Entitic vol] 10.9 fL Normal 9.0-12.7 [facility] Comment on above: Order Comment: Speci men Type: BLOOD SPECIMEN Ordering Facility: [facility] Address: [address] [place] [address] Performed By: #### 5 8410-2 #### [facility] CLIA [id number] [address] [place] [address] [place] Platelets (Bld) [#/Vol] 270 10*3/uL Normal 150-400 [facility] Comment on above: Order Comment: Speci men Type: BLOOD SPECIMEN Ordering Facility: [facility] Address: [address] [place] [address] Performed By: #### 5 8410-2 #### [facility] CLIA [id number] [address] [place] [address] [place] RBC (Bld) [#/Vol] 3.80 10*6/uL Low 3.90-5.20 [facility] Comment on above: Order Comment: Speci men Type: BLOOD SPECIMEN Ordering Facility: [facility] Address: [address] [place] [address] Performed By: #### 5 8410-2 #### [facility] CLIA [id number] [address] [place] [address] [place] WBC (Bld) [#/Vol] 7.47 10*3/uL Normal 3.70-11.00 [facility] Comment on above: Order Comment: Speci men Type: BLOOD SPECIMEN Ordering Facility: [facility] Address: [address] [place] [address] Performed By: #### 5 8410-2 #### [facility] CLIA [id number] [address] [place] [address] [place] HISTORY PHYSICALon 4 HISTORY PHYSICAL HNO ID: [id number] Author: PRIMITIVO ANDRADE MD Service: Radiology Author Type: Physician Type: H&P Filed: 04/16/2024 12:47 Note Text: ----- Attestation signed by Primitivo Andrade MD at 04/16/2024 12:47 PM Radiology Attending Note I evaluated the patient and personally participated in the talavera components. I agree with the resident's findings and plan as documented and have discussed the case and management of the patient's care with the resident. Signature: Primitivo Andrade MD Date: 04/16/2024 Time: 12:47 PM ----- RADIOLOGY PROCEDURAL SEDATION HISTORY AND PHYSICAL EXAM SERVICE DATE: 04/16/2024 SERVICE TIME: 10:13 AM Subjective HPI: 78 year old female who presents for image guided random [place] kidney biopsy with moderate sedation. PROCEDURE: Image guided random [place] kidney biopsy with moderate sedation. PROCEDURE INDICATIONS: Elevated M-protein, concern for MGUS PROCEDURE SCHEDULED: Procedure(s): BIOPSY KIDNEY PERCUTANEOUS (N/A) RADIOLOGY ORDER PLACED: Radiology (1440h ago, onward) Start Ordered 03/26/24 0000 IMAGING GUIDED BIOPSY RENAL Routine 03/26/24 1101 PAST ANESTHESIA HISTORY: No history of adverse event Prior to Admission medications as of 04/16/24 0946 Medication Sig Last Dose Taking doxazosin (CARDURA) 4 mg tablet Take 4 mg by mouth daily at bedtime. Takes 2mg in morning then 4mg at night 04/16/2024 at 0730 Yes aspirin (ASPIR-81 ORAL) Take 81 mg by mouth once daily. 04/15/2024 Yes ferrous sulfate 325 mg (65 mg iron) tablet Take 325 mg by mouth once daily. 04/16/2024 at 0730 Yes amLODIPine (NORVASC) 2.5 mg tablet Take 5 mg by mouth twice daily. 04/16/2024 at 0730 Yes metFORMIN (GLUCOPHAGE) 500 mg tablet Take 500 mg by mouth twice daily. 04/16/2024 at 0730 Yes ezetimibe (ZETIA) 10 mg tablet Take 10 mg by mouth once daily. 04/16/2024 at 0730 Yes carvedilol (COREG) 25 mg tablet Take 25 mg by mouth as directed. Takes 1 1/2 tablet 2x a day 04/16/2024 at 0730 Yes furosemide (LASIX) 40 mg tablet Take 40 mg by mouth once daily. Alternates with 20mg 04/16/2024 at 0730 Yes anastrozole (ARIMIDEX) 1 mg tablet TAKE 1 TABLET BY MOUTH EVERY DAY Patient not taking: Reported on 02/24/2024 bimatoprost (LUMIGAN) 0.01 % drop ophthalmic drops 1 Drop as directed. propafenone SR (RYTHMOL SR) 325 mg 12 hr capsule Take 325 mg by mouth q 12 HR. potassium chloride (K-TAB) 10 mEq tablet omeprazole (PRILOSEC) 40 mg capsule Take 40 mg by mouth once daily. calcium-cholecalciferol, D3, (OSCAL+D 250) 250-125 mg-unit per tablet Take 1 tablet by mouth twice daily. rivaroxaban (XARELTO) 20 mg tablet Take 20 mg by mouth daily with dinner. Patient not taking: Reported on 11/25/2023 Multivitamin capsule Take 1 capsule by mouth once daily. Patient not taking: Reported on 11/25/2023 ALLERGIES Allergen Reactions Ftjsrqo-Gkw-Cid Red* Unknown Other reaction(s): AOF PAST MEDICAL HISTORY Diagnosis Date Atrial fibrillation (HCC) Brain bleed (HCC) Cancer (HCC) 05/2018 breast cancer Diabetes (HCC) Hyperlipidemia Hypertension Other specified menopausal and perimenopausal disorders 04/20/2021 PAST SURGICAL HISTORY Procedure Laterality Date CATARACT EXTRACTION HX Objective PHYSICAL EXAM: The remainder of the physical exam is noncontributory. GENERAL: Alert, no distress, cooperative AIRWAY: clear LUNGS: Lungs clear to auscultation, CARDIAC: Regular rhythm, Regular rate ABD: Non tender Assessment/Plan Imaging and labs reviewed. R/B/A discussed with patient. Proceed with Image guided random [place] kidney biopsy with moderate sedation. ASA Class:: Patient with mild systemic disease SEDATION GOAL: Moderate SIGNATURE: Elías Amato MD PATIENT NAME: Andrew Barros DATE: April 16, 2024 TIME: 10:13 AM PAGER: [phone] Normal [facility] Hgb Bld-mCncon 04-16-2024 Hemoglobin (Bld) [Mass/Vol] 10.4 g/dL Low 11.5-15.5 [facility] Comment on above: Order Comment: Speci men Type: BLOOD SPECIMENOrdering Facility: [facility] Address: [address] [place] [address] Performed By: #### 7 18-7 ####[facility] LABCLIA [id number] [address] [facility] NURSING PROGon 04-16-2024 NURSING PROG HNO ID: [id number] Author: MIGUEL WALKER RN Service: Nursing Author Type: Registered Nurse Type: Nursing Progress Note Filed: 04/17/2024 03:03 Note Text: Other: will call clerk nephrology resident notified of HGB drop from 11.8 to 10.4. VS stable, no s/s of bleeding noted. Will continue to monitor Normal [facility] NURSING PROG HNO ID: [id number] Author: RADHA UMANA RN Service: Nursing Author Type: Registered Nurse Type: Nursing Progress Note Filed: 04/16/2024 13:58 Note Text: Admission/Transfer Note PATIENT NAME: Andrew Barros Patient Location: FB81-Ixnkrd/ND60-Uavwxo Room: AW50-Sahkqd (HOSP OPTIME ANGIO FB PRE POST) Patient admitted from PACU via bed in stable condition. Actions taken: Patient oriented to room, call light function, and prescribed activities. Constant observation to be continued. This note was completed by: Radha Umana Normal [facility] PT EDon 04-16-2024 PT ED HNO ID: [id number] Author: DARIEN MILLS RN Service: Nursing Author Type: Registered Nurse Type: Patient Education Filed: 04/16/2024 11:59 Note Text: AMBULATORY PATIENT EDUCATION TOPIC: Survival Skills: Procedure, [place] kidney biopsy READINESS TO LEARN COGNITIVE ABILITY: Alert and oriented MOTIVATION TO LEARN: Interested FAMILY SUPPORT: High - Very involved in pt care INSTRUCTION PROVIDED TO: Patient and family member PATIENT LEARNS BEST BY: Individual Instruction FACTORS AFFECTING LEARNING: Unable to assess PHYSICAL LIMITATIONS AFFECTING LEARNING: Pain and Fatigue LEARNING RESPONSE DIAGNOSIS: Monoclonal gammopathy of renal significance METHOD OF INSTRUCTION: Individual instruction PATIENT / FAMILY RESPONSE: Information received as demonstrated by interest and questions FOLLOW-UP PLAN: Patient instructed to call with any further issues SUPPLEMENTAL MATERIAL: None REFERRAL (RECOMMENDATION): None Electronically Signed By: Darien Phillips RN In Department: [place] [address] Normal [facility] SURGICAL PATHOLOGYon 024 CASE REPORT Normal [facility] Comment on above: Order Comment: Speci men Type: BLOOD SPECIMEN [facility]ing [facility]: [facility] Address: [address] [place] [address] Result Comment: Surg ical Pathology Report Case: [id number] Authorizing Provider: Gabrielle Higuera MD Collected: 04/16/2024 12:20 PM Ordering Location: [place] [address] Received: 04/16/2024 12:36 PM Pathologist: Jennifer Messer MD Specimen: Kidney, Left, Biopsy Performed By: #### 1 952-1, 2885-2 #### [facility] CLIA [id number] [address] [place] [address] [place] CLINICAL HISTORY 78-year-old woman wi th history of diabetes and hypertension, presenting for evaluation of CKD in the setting of MGUS. Creatinine 1.42, albumin 4.0, timed urine protein 0.73 g, MPA with IgM kappa M protein, UMPA with free kappa light chains, kappa lambda ratio 2.31. Normal [facility] Comment on above: Order Comment: Speci men Type: BLOOD SPECIMEN [facility]ing Facility: [facility] Address: [address] [place] [address] Performed By: #### 1 952-1, 2885-2 #### [facility] CLIA [id number] [place] DIAGNOSIS COMMENT Normal [facility] Comment on above: Order Comment: Anastacio bonilla Type: BLOOD SPECIMEN Ordering Facility: [facility] Address: [address] [place] [address] Result Comment: Immu nofluorescence is essentially negative, providing evidence against active immune complex mediated glomerular disease as well as against dysproteinemia related renal disease. A total of 16 glomeruli are sampled, 4 of which are globally sclerotic, in a background of mild tubulointerstitial fibrosis. Evidence of overt nodular diabetic glomerulosclerosis is not appreciated. The findings are ultimately nonspecific, though the patient's clinical history would suggest that diabetes and hypertension may be contributing to the patient's renal presentation. Laboratory Developed Test (LDT) Disclaimer: Performance characteristics of immunohistochemical, immunofluorescent and chromogenic in-situ hybridization tests have been determined by the performing laboratory within [facility]???[facility] Pathology and Laboratory Medicine Department ([facility], [facility], [facility], [facility], [facility], [facility], or [facility]) in a manner consistent with CLIA requirements. One or more of these tests have not been cleared or approved by the FDA. [facility] is regulated under CLIA as qualified to perform high-complexity testing. These tests are used for clinical purposes. They should not be regarded as investigational or for research. Positive and negative controls stain appropriately. Performed By: #### 1 952-1, 2885-2 #### [facility] CLIA [id number] [address] [place] [address] [facility] FINAL DIAGNOSIS Normal [facility] Comment on above: Order Comment: Anastacio bonilla Type: BLOOD SPECIMEN [facility]ing [facility]: [facility] Address: [address] [place] [address] Result Comment: Michelle houston, Left, Biopsy: - Focal global glomerulosclerosis, mild. See comment. - Tubular atrophy and interstitial fibrosis, mild. - Arteriosclerosis, moderate, and arteriolosclerosis, moderate to severe. Performed By: #### 1 952-1, 2885-2 #### [facility] CLIA [id number] [address] [place] [address] [place] FINAL PERFORMING LAB Normal [facility] Comment on above: Order Comment: Speci men Type: BLOOD SPECIMEN Ordering Facility: [facility] Address: [address] [place] [address] Result Comment: Diag nostic interpretation performed at [facility], [address] [place] [address] CLIA# [id number] Justice: Sunil Moreno M.D. Performed By: #### 1 952-1, 2885-2 #### [facility] CLIA [id number] [address] [place] [address] [place] GROSS DESCRIPTION Normal [facility] Comment on above: Order Comment: Speci men Type: BLOOD SPECIMEN [facility]ing Facility: [facility] Address: [address] [place] [address] Result Comment: Michelle houston, Left, Biopsy Received fresh on saline moistened Telfa gauze is one segment of cylindrical daniels, soft tissue measuring 2.0 x 0.1 x 0.1 cm. A portion is frozen and kept frozen for direct immunofluorescence. A portion is submitted for electron microscopy. A portion is submitted in formalin for light microscopy in cassette A2. The renal biopsy specimen was examined under a dissecting scope to determine specimen adequacy. Feedback regarding adequacy was provided to the performing physician and the specimen was divided for the appropriate diagnostic studies based on the tissue available. CL April 16, 2024 12:48 PM Gross examination performed at [facility], [address] [place] [address] Performed By: #### 1 952-1, 2885-2 #### [facility] CLIA [id number] [address] [place] [address] [place] MICROSCOPIC DESCRIPTION Normal [facility] Comment on above: Order Comment: Speci men Type: BLOOD SPECIMEN [facility]ing [facility]: [facility] Address: [address] [place] [address] Result Comment: Sect ions are stained for H&E, PAS, trichrome, and Morton, revealing 1 core of renal cortex and corticomedullary junction. Approximately 6 glomeruli are sampled, 1 of which is globally sclerotic. PAS and Morton stains highlight glomerular basement membranes, emphasizing no significant proliferative alterations. Overt nodular sclerosis is not seen. Some tubules contain Tamm-Horsfall protein casts, but prominent atypical casts are not appreciated. There is focal chronic inflammation within areas of fibrosis, but otherwise there is no significant active tubulointerstitial infiltrate. A trichrome stain demonstrates mild tubular atrophy and interstitial fibrosis. Arteries show moderate intimal sclerosis and arterioles show moderate to severe hyalinosis. A Congo red stain for amyloid is negative. Immunofluorescence staining is performed for IgG, IgA, IgM, C3, C1q, albumin, kappa, and lambda. An additional 7 glomeruli are sampled, 3 of which are globally sclerotic. Glomeruli demonstrate trace granular mesangial staining for IgM and are negative for other immunoreactants. Cable and lambda stain equally throughout the tubulointerstitium and albumin highlights background tissue architecture. Tissue for electron microscopy samples 3 additional nonsclerotic glomeruli. Ultrastructurally, glomerular basement membranes appear segmentally wrinkled. Podocyte foot process effacement involves approximately 40% of the capillary surface area on average. Significant immune type electron dense deposits are not identified within glomeruli or in the tubulointerstitium. Performed By: #### 1 952-1, 2885-2 #### [facility] CLIA [id number] [address] [place] [address] [place] US BIOPSY RENALon 04-16-2024 BIOPSY RENAL * * *Final Report* * * DATE OF EXAM: Apr 16 2024 2:10PM [facility] [place] BIOPSY RENAL / PROCEDURE REASON: [D47.2] * * * * Physician Interpretation * * * * PROCEDURE PERFORMED: ULTRASOUND GUIDED BIOPSY PRE-PROCEDURE DIAGNOSIS: MGUS, chronic kidney disease. POST-PROCEDURE DIAGNOSIS: Same as pre-procedure diagnosis INDICATION FOR PROCEDURE: MGUS, chronic kidney disease. RELEVANT PRIOR STUDIES: PET/CT 03/20/2024 STAFF RADIOLOGIST: Dr. Andrade INSURANCE SALES ASSOCIATE(S): None CONSENT: The risks, benefits, treatment options, potential complications and personnel involved were discussed with the patient. All questions were answered and consent was obtained. The patient indicated willingness to proceed. The staff physician personally verified consent. TIME OUT: A time out was performed immediately prior to procedure start with the nursing, anesthesia and interventional team, correctly identifying the patient name, date of , procedure, anatomy (including marking of site and side), patient position, procedure consent form, relevant diagnostic and radiology test results, antibiotic administration, safety precautions, and procedure-specific equipment needs. RESULT: PROCEDURE: After performing the time out, the left kidney was localized with ultrasound, images were obtained and archived. The left flank was prepped and draped in the usual sterile fashion. Under direct ultrasound guidance, 1 pass was made into the left kidney using an 18 gauge core biopsy needle. Following the core biopsy, the patient developed bleeding from the biopsy site into the retroperitoneum with resulting moderate retroperitoneal hematoma. Upon recognition of the hemorrhage, I placed an 18 gauge trocar into the left retroperitoneum near the site of bleeding and performed an autologous blood patch followed by injection of gel foam to promote hemostasis. The patient was then repositioned left side down with towels under the biopsy site, per routine kidney biopsy protocol, to increase pressure in the retroperitoneum and encourage hemostasis. Throughout the procedure and during her stay in the IR recovery room the patient's vitals stayed stable and she did not have any discomfort in the left flank. The procedure was performed by the: attending radiologist, without an therapy administrative assistant. ANESTHESIA/SEDATION: Conscious sedation: Versed: 0.5 mg IV Fentanyl: 25 mcg IV Local anesthesia: Lidocaine 2%: 8 cc Vital signs were monitored by the nurse. START TIME/TIMEOUT TIME: 1210 END TIME: 1237 INTRA-SERVICE (SEDATION) TIME: 27 minutes PATIENT MONITORING: The staff physician personally supervised and directed an independent trained observer who assisted in monitoring the patient?s level of consciousness and physiological status throughout the procedure. SIGNIFICANT COMPLICATIONS: None MINOR COMPLICATIONS: Moderate left retroperitoneal hematoma, as above. SIGN-OUT DISCUSSION: Completed ESTIMATED BLOOD LOSS: 50 cc SPECIMENS: 1 core biopsy specimen(s) was/were placed on saline soaked gauze, evaluated by surgical pathology team and determined to be adequate. BIOPSY DEVICE: 18 gauge Biopince core biopsy needle. IMPRESSION: ULTRASOUND GUIDED BIOPSY DESCRIBED. v 12.9.21 Construction Job Titles: ANIBAL Transcribe Date/Time: Apr 16 2024 3:32P Dictated by : PRIMITIVO ANDRADE MD This examination was interpreted and the report reviewed and electronically signed by: PRIMITIVO ANDRADE MD on Apr 16 2024 3:40PM EST [id number] Normal [facility] CBC W Auto Differential pane l (Bld)on 04-14-2024 Basophils (Bld) [#/Vol] 0.06 10*3/uL Normal <0.11 [facility] Comment on above: Order Comment: Speci men Type: BLOOD SPECIMENOrdering Facility: [facility] Address: [address] [place] [address] Performed By: #### 5 7021-8 ####[facility] LABCLIA [id number] [place] [address] Basophils/100 WBC (Bld) 0.4 % Normal [facility] Comment on above: Order Comment: Speci men Type: BLOOD SPECIMENOrdering Facility: [facility] Address: [address] [place] [address] Performed By: #### 5 7021-8 ####[facility] LABCLIA [id number] [place] [address] Differential cell count method Nom (Bld) Auto Normal [facility] Comment on above: Order Comment: Speci men Type: BLOOD SPECIMENOrdering Facility: [facility] Address: [address] [place] [address] Performed By: #### 5 7021-8 ####[facility] LABCLIA [id number] [place] [address] Eosinophils (Bld) [#/Vol] 0.03 10*3/uL Normal <0.46 [facility] Comment on above: Order Comment: Speci men Type: BLOOD SPECIMENOrdering Facility: [facility] Address: [address] [place] [address] Performed By: #### 5 7021-8 ####[facility] LABCLIA [id number] [place] [address] Eosinophils/100 WBC (Bld) 0.2 % Normal [facility] Comment on above: Order Comment: Speci men Type: BLOOD SPECIMENOrdering Facility: [facility] Address: [address] [place] [address] Performed By: #### 5 7021-8 ####[facility] LABCLIA [id number] [place] [address] Erythrocyte distribution width (RBC) [Ratio] 13.0 % Normal 11.5-15.0 [facility] Comment on above: Order Comment: Speci men Type: BLOOD SPECIMENOrdering Facility: [facility] Address: [address] [place] [address] Performed By: #### 5 7021-8 ####[facility] LABCLIA [id number] [place] [address] Hematocrit (Bld) [Volume fraction] 37.8 % Normal 36.0-46.0 [facility] Comment on above: Order Comment: Speci men Type: BLOOD SPECIMENOrdering Facility: [facility] Address: [address] [place] [address] Performed By: #### 5 7021-8 ####[facility] LABCLIA [id number] [place] [address] Hemoglobin (Bld) [Mass/Vol] 12.3 g/dL Normal 11.5-15.5 [facility] Comment on above: Order Comment: Speci men Type: BLOOD SPECIMENOrdering Facility: [facility] Address: [address] [place] [address] Performed By: #### 5 7021-8 ####[facility] LABCLIA [id number] [place] [address] Immature granulocytes (Bld) [#/Vol] 0.06 10*3/uL Normal <0.10 [facility] Comment on above: Order Comment: Speci men Type: BLOOD SPECIMENOrdering Facility: [facility] Address: [address] [place] [address] Performed By: #### 5 7021-8 ####[facility] LABCLIA [id number] [place] [address] Immature granulocytes/100 WBC (Bld) 0.4 % Normal [facility] Comment on above: Order Comment: Speci men Type: BLOOD SPECIMENOrdering Facility: [facility] Address: [address] [place] [address] Performed By: #### 5 7021-8 ####[facility] LABCLIA [id number] [place] [address] Lymphocytes (Bld) [#/Vol] 1.18 10*3/uL Normal 1.00-4.00 [facility] Comment on above: Order Comment: Speci men Type: BLOOD SPECIMENOrdering Facility: [facility] Address: [address] [place] [address] Performed By: #### 5 7021-8 ####[facility] LABCLIA [id number] [place] [address] Lymphocytes/100 WBC (Bld) 8.6 % Normal [facility] Comment on above: Order Comment: Speci men Type: BLOOD SPECIMENOrdering Facility: [facility] Address: [address] [place] [address] Performed By: #### 5 7021-8 ####[facility] LABCLIA [id number] [place] [address] MCH (RBC) [Entitic mass] 30.5 pg Normal 26.0-34.0 [facility] Comment on above: Order Comment: Speci men Type: BLOOD SPECIMENOrdering Facility: [facility] Address: [address] [place] [address] Performed By: #### 5 7021-8 ####[facility] LABIA [id number] [place] [address] MCHC (RBC) [Mass/Vol] 32.5 g/dL Normal 30.5-36.0 [facility] Comment on above: Order Comment: Speci men Type: BLOOD SPECIMENOrdering Facility: [facility] Address: [address] [place] [address] Performed By: #### 5 7021-8 ####[facility] LABCLIA [id number] [place] [address] MCV (RBC) [Entitic vol] 93.8 fL Normal 80.0-100.0 [facility] Comment on above: Order Comment: Speci men Type: BLOOD SPECIMENOrdering Facility: [facility] Address: [address] [place] [address] Performed By: #### 5 7021-8 ####[facility] LABCLIA [id number] [place] [address] Monocytes (Bld) [#/Vol] 1.40 10*3/uL High <0.87 [facility] Comment on above: Order Comment: Speci men Type: BLOOD SPECIMENOrdering Facility: [facility] Address: [address] [place] [address] Performed By: #### 5 7021-8 ####[facility] LABCLIA [id number] [place] [address] Monocytes/100 WBC (Bld) 10.2 % Normal [facility] Comment on above: Order Comment: Speci men Type: BLOOD SPECIMENOrdering Facility: [facility] Address: [address] [place] [address] Performed By: #### 5 7021-8 ####[facility] LABCLIA [id number] [place] [address] Neutrophils (Bld) [#/Vol] 11.04 10*3/uL High 1.45-7.50 [facility] Comment on above: Order Comment: Speci men Type: BLOOD SPECIMENOrdering Facility: [facility] Address: [address] [place] [address] Performed By: #### 5 7021-8 ####[facility] LABCLIA [id number] [place] [address] Neutrophils/100 WBC (Bld) 80.2 % Normal [facility] Comment on above: Order Comment: Speci men Type: BLOOD SPECIMENOrdering Facility: [facility] Address: [address] [place] [address] Performed By: #### 5 7021-8 ####[facility] LABCLIA [id number] [place] [address] Nucleated RBC (Bld) [#/Vol] 10*3/uL Normal <0.01 [facility] Comment on above: Order Comment: Speci men Type: BLOOD SPECIMENOrdering Facility: [facility] Address: [address] [place] [address] Performed By: #### 5 7021-8 ####[facility] LABCLIA [id number] [place] [address] Nucleated RBC/100 WBC (Bld) [Ratio] 0.0 /100 WBC Normal [facility] Comment on above: Order Comment: Speci men Type: BLOOD SPECIMENOrdering Facility: [facility] Address: [address] [place] [address] Performed By: #### 5 7021-8 ####[facility] LABIA [id number] [place] [address] Platelet mean volume (Bld) [Entitic vol] 11.1 fL Normal 9.0-12.7 [facility] Comment on above: Order Comment: Speci men Type: BLOOD SPECIMENOrdering Facility: [facility] Address: [address] [place] [address] Performed By: #### 5 7021-8 ####[facility] LABCLIA [id number] [place] [address] Platelets (Bld) [#/Vol] 241 10*3/uL Normal 150-400 [facility] Comment on above: Order Comment: Speci men Type: BLOOD SPECIMENOrdering Facility: [facility] Address: [address] [place] [address] Performed By: #### 5 7021-8 ####[facility] LABCLIA [id number] [place] [address] RBC (Bld) [#/Vol] 4.03 10*6/uL Normal 3.90-5.20 [facility] Comment on above: Order Comment: Speci men Type: BLOOD SPECIMENOrdering Facility: [facility] Address: [address] [place] [address] Performed By: #### 5 7021-8 ####[facility] LABCLIA [id number] [place] [address] WBC (Bld) [#/Vol] 13.77 10*3/uL High 3.70-11.00 [facility] Comment on above: Order Comment: Speci men Type: BLOOD SPECIMENOrdering Facility: [facility] Address: [address] [place] [address] Performed By: #### 5 7021-8 ####[facility] LABCLIA [id number] [place] [address] Calcium.ionized [Moles/Vol]o n 04-14-2024 Calcium.ionized (Bld) [Mass/Vol] 1.19 mmol/L Normal 1.08-1.30 [facility] Comment on above: Order Comment: Speci men Type: BLOOD SPECIMENOrdering Facility: [facility] Address: [address] [place] [address] Result Comment: Joanna ection tube not filled. Ionized Calcium may be falsely decreased. Performed By: #### 1 995-0 ####[facility] LABCLIA [id number] [facility] [place] [address] [place] Calcium.ionized adjusted to pH 7.4 (Bld) [Moles/Vol] 1.21 mmol/L Normal 1.08-1.30 [facility] Comment on above: Order Comment: Speci men Type: BLOOD SPECIMENOrdering Facility: [facility] Address: [address] [place] [address] Result Comment: Joanna ection tube not filled. Ionized Calcium may be falsely decreased. Performed By: #### 1 995-0 ####[facility] LABCLIA [id number] [place] [address] [place] Comprehensive metabolic 2000 panelon 04-14-2024 Albumin [Mass/Vol] 4.0 g/dL Normal 3.9-4.9 [facility] Comment on above: Order Comment: Speci men Type: BLOOD SPECIMEN Ordering Facility: [facility] Address: [address] [place] [address] Performed By: #### 1 952-1, 2884-2 #### [facility] CLIA [id number] [address] [place] [address] [place] ALP [Catalytic activity/Vol] 92 U/L Normal 34-123 [facility] Comment on above: Order Comment: Speci men Type: BLOOD SPECIMEN Ordering Facility: [facility] Address: [address] [place] [address] Performed By: #### 1 952-1, 2884-2 #### [facility] CLIA [id number] [address] [place] [address] [place] ALT [Catalytic activity/Vol] 11 U/L Normal 7-38 [facility] Comment on above: Order Comment: Speci men Type: BLOOD SPECIMEN Ordering Facility: [facility] Address: [address] [place] [address] Performed By: #### 1 952-1, 2884-2 #### [facility] CLIA [id number] [address] [place] [address] [place] Anion gap [Moles/Vol] 14 mmol/L Normal 8-15 [facility] Comment on above: Order Comment: Speci men Type: BLOOD SPECIMEN Ordering Facility: [facility] Address: [address] [place] [address] Performed By: #### 1 952-1, 2884-2 #### [facility] CLIA [id number] [address] [place] [address] [place] AST [Catalytic activity/Vol] 15 U/L Normal 13-35 [facility] Comment on above: Order Comment: Speci men Type: BLOOD SPECIMEN Ordering Facility: [facility] Address: [address] [place] [address] Performed By: #### 1 952-1, 2885-2 #### [facility] CLIA [id number] [address] [place] [address] [place] Bilirubin [Mass/Vol] 0.7 mg/dL Normal 0.2-1.3 [facility] Comment on above: Order Comment: Speci men Type: BLOOD SPECIMEN Ordering Facility: [facility] Address: [address] [place] [address] Performed By: #### 1 952-1, 288-2 #### [facility] CLIA [id number] [address] [place] [address] [place] Calcium [Mass/Vol] 9.8 mg/dL Normal 8.5-10.2 [facility] Comment on above: Order Comment: Speci men Type: BLOOD SPECIMEN Ordering Facility: [facility] Address: [address] [place] [address] Performed By: #### 1 952-1, 288-2 #### [facility] CLIA [id number] [address] [place] [address] [place] Chloride [Moles/Vol] 99 mmol/L Normal 98-107 [facility] Comment on above: Order Comment: Speci men Type: BLOOD SPECIMEN Ordering Facility: [facility] Address: [address] [place] [address] Performed By: #### 1 952-1, 288-2 #### [facility] CLIA [id number] [address] [place] [address] [place] CO2 [Moles/Vol] 23 mmol/L Normal 22-30 [facility] Comment on above: Order Comment: Speci men Type: BLOOD SPECIMEN Ordering Facility: [facility] Address: [address] [place] [address] Performed By: #### 1 952-1, 288-2 #### [facility] CLIA [id number] [address] [place] [address] [place] Creatinine [Mass/Vol] 1.42 mg/dL High 0.58-0.96 [facility] Comment on above: Order Comment: Speci men Type: BLOOD SPECIMEN Ordering Facility: [facility] Address: [address] [place] [address] Performed By: #### 1 952-, 2 #### [facility] CLIA [id number] [address] [place] [address] [place] Creatinine and Glomerular filtration rate.predicted panel (S/P/Bld) 38 mL/min/1.73m??? Low >=60 [facility] Comment on above: Order Comment: Speci men Type: BLOOD SPECIMEN Ordering Facility: [facility] Address: [address] [place] [address] Result Comment: Sugar mated Glomerular Filtration Rate [...] accurately reflect actual GFR. Performed By: #### 1 952-1, 2 #### [facility] CLIA [id number] [address] [place] [address] [place] Glucose [Mass/Vol] 181 mg/dL High 74-99 [facility] Comment on above: Order Comment: Speci men Type: BLOOD SPECIMEN Ordering Facility: [facility] Address: [address] [place] [address] Result Comment: The [place] Diabetes Association (ADA) provides guidance for cutoff [...] Standards of Medical Care in Diabetes 2016, [place] [employer]. Diabetes Care. 2016.39(Suppl 1). Performed By: #### 1 952-1, 2885-2 #### [facility] CLIA [id number] [address] [place] [address] [place] Potassium [Moles/Vol] 4.0 mmol/L Normal 3.7-5.1 [facility] Comment on above: Order Comment: Speci men Type: BLOOD SPECIMEN Ordering Facility: [facility] Address: [address] [place] [address] Performed By: #### 1 952-1, 288-2 #### [facility] CLIA [id number] [address] [place] [address] [place] Protein [Mass/Vol] 7.7 g/dL Normal 6.3-8.0 [facility] Comment on above: Order Comment: Speci men Type: BLOOD SPECIMEN Ordering Facility: [facility] Address: [address] [place] [address] Performed By: #### 1 952-1, 288-2 #### [facility] CLIA [id number] [address] [place] [address] [place] Sodium [Moles/Vol] 136 mmol/L Normal 136-144 [facility] Comment on above: Order Comment: Speci men Type: BLOOD SPECIMEN Ordering Facility: [facility] Address: [address] [place] [address] Performed By: #### 1 952-1, 2885-2 #### [facility] CLIA [id number] [address] [place] [address] [place] Urea nitrogen [Mass/Vol] 27 mg/dL High 04-12 [facility] Comment on above: Order Comment: Anastacio bonilla Type: BLOOD SPECIMEN Ordering Facility: [facility] Address: [address] [place] [address] Performed By: #### 1 952-1, 2885-2 #### [facility] CLIA [id number] [address] [place] [address] [place] PT panel Coag (PPP)on 2023 INR Coag (PPP) [Relative time] 1.0 {INR} Normal 0.9-1.3 [facility] Comment on above: Order Comment: Speci irene Type: BLOOD SPECIMEN Ordering Facility: [facility] Address: [address] [place] [address] Result Comment: Sandra min K Antagonist (VKA) Therapeutic Range: INR 2 to 3 (Target INR of 2.5) Note: For patients treated with VKA drugs, such as warfarin, the [place] [employer] 2012 Guideline recommends a therapeutic INR range of 2 to 3 (target INR of 2.5). This recommendation includes high-risk patients with antiphospholipid syndrome with previous arterial or venous thromboembolism, current-generation mechanical or bioprosthetic aortic heart valve replacement. Note: Patients with mechanical aortic valve replacement and additional risk factors for thromboembolic events (atrial fibrillation, previous thromboembolism, LV dysfunction, hypercoagulable conditions) or an older generation mechanical AVR (i.e., ball in-Cage) or any mechanical MVR should have a INR therapeutic range of 2.5 to 3.5 (target INR of 3). Linus GH, et al. Chest 2012, 141:7S-47S Severino RA et al. [facility] 2017, 70: 252-289 Performed By: #### 1 952-1, 2885-2 #### [facility] CLIA [id number] [address] [id number] [address] [place] PT Coag (PPP) [Time] 10.9 s Normal 9.7-13.0 [facility] Comment on above: Order Comment: Speci men Type: BLOOD SPECIMEN Ordering Facility: [facility] Address: [address] [place] [address] Performed By: #### 1 952-1, 2885-2 #### [facility] CLIA [id number] [address] [place] [address] OF [place] NURSING PROGon 04-08-2024 NURSING PROG HNO ID: [id number] Author: MARTY SANCHEZ, RN Service: Nursing Author Type: Registered Nurse Type: Nursing Progress Note Filed: 04/08/2024 16:49 Note Text: Pre-procedure instructions: Contacted patient/daughter Sugey and confirmed appt. for Random [place] Kidney Biopsy scheduled on 04/16/2024, at [facility]. I will wait while you get a pen and paper, if instructions are not followed your procedure may need to be cancelled or rescheduled. Diet: Do not eat solid food after midnight the night before your procedure. You may have water until your arrival time 0930. Lab (J1-4 by 0830). Medications: IF ok with your Prescribing Provider: RADIOLOGY RECOMMENDS THESE MEDICATION RESTRICTIONS : Metformin Metformin to be held the morning of the procedure. Patient not taking Xarelto. Medication pumps: Insulin pumps must be removed before entering the procedure room. Do you wear Neulasta Onpro? No If yes, the device must be removed before entering the procedure room. Contrast Dye Prep: Do you have a contrast dye allergy? No Labs: Lab work needs to be drawn prior to 04/16/2024 at any [facility]. If the labs are drawn same day as procedure, please report to J1-4 by 0830. Labs to be completed by 04/16/2024. CBC and PROTHROMBIN TIME/PT Arrival: Please bring your Photo ID and Insurance Card. A general consent may need to be signed. Arrival at 0930 to desk QB[facility] ([facility]) and check in for your procedure. Ict Security Specialist/Transportation: How will you be arriving for your procedure? Private car. If you will be arriving at [facility] via ambulance or public transportation, please call to discuss. You will need a responsible adult to accompany you to and from the procedure. Your concrete truck driver is required to stay with you until you are taken into the Procedure room. If you develop any of the following symptoms before your procedure, please call [phone]. Chills, joint pain, rash, sore throat, cough, loss of smell, reddened eyes, vomiting, abdominal pains, diarrhea, loss of taste, severe headache, weakness, bruising or bleeding, fever, muscle pain, shortness of breath Recovery expectations: You can expect to be at the hospital for the majority of the day. Please do not schedule any other appointments the day of your procedure. Special concerns: Do you use CPAP or BPAP? No If you use CPAP or BiPAP, please call to discuss. Written instructions provided to patient via [employer]it If you have any questions please call [phone] _ Normal [facility] Rita 04-03-2024 CNPN Telephone (HEMTSA) ----- ANDREW BARROS ([id number]) 1945 F Date Time Provider Department 04/03/24 KEVIN BRANDON During your visit today, we recorded the following information about you: Kevin Brandon, RN 04/03/2024 3:44 PM Signed Call received from Agata Irizarry (Rosenda), patients daughter, with multiple questions regarding pending renal bx and EGD. Per prior phone enc the granddaughter was contacted as Rosenda was out of town but Rosenda is the primary caregiver/contact for the patient, who was also on the phone. I updated Rosenda regarding pending procedures and reasoning. I also have made her aware that scheduling had attempted to contact the patient earlier in the day. Please contact Rosenda in regards to scheduling, education, and informing about the plan. Her information was confirmed correct in the demographics tab JARRET SunSachin haile Kenney 04/06/2024 10:09 AM Signed Left message on voicemail for Rosenda to call and schedule Sachin Marsh 04/08/2024 10:46 AM Signed Left message on voicemail for Rosenda to call and schedule Allergies As of Date: 04/03/2024 Noted Allergy Reaction UIUMKIC-IDV-TPT REDUCTASE INHIBIT*01/21/2018 16 - Unknown Comments: Other reaction(s): AOF Date Reviewed: 02/24/2024 Reviewed by: Arabella Cotter MA - Fully Assessed Prescriptions as of 04/08/2024 - anastrozole (ARIMIDEX) 1 mg tablet TAKE 1 TABLET BY MOUTH EVERY DAY - doxazosin (CARDURA) 4 mg tablet Take 4 mg by mouth daily at bedtime. Takes 2mg in morning then 4mg at night - aspirin (ASPIR-81 ORAL) Take 81 mg [...] - potassium chloride (K-TAB) 10 mEq tablet - omeprazole (PRILOSEC) 40 mg capsule Take [...] Take 40 mg by mouth once daily. Alternates with 20mg Problem List As Of Date 04/03/2024 Noted Resolved Malignant neoplasm of upper-outer quadrant of l*06/12/2018 Other specified menopausal and perimenopausal d*04/20/2021 Hypercalcemia [E83.52] 04/29/2023 Stage 3 chronic kidney disease, unspecified whe*05/05/2023 Encounter Status:Closed by SACHIN MARSH on 04/08/24 [facility] CNPNon 04-02-2024 CNPN Telephone (IRRFV) ----- ANDREW BARROS ([id number]) 1945 F Date Time Provider Department 04/02/24 SANDEEP LENZ IRRFV During your visit today, we recorded the following information about you: Ashlie Mendez 04/02/2024 10:51 AM Signed RADIOLOGY CALL CENTER INTAKE DATE: 04/02/2024 TIME: 10:49am REQUESTING STAFF: Sandeep Lenz MD PHONE/PAGER: [phone] SPECIFICS OF THE REQUEST: Renal Biopsy SPECIAL REQUESTS: TISSUE SAMPLE, LABWORK: N/A IS THIS REQUEST PART OF A RESEARCH PROTOCOL: No MEDICAL DIAGNOSIS: MGUS (monoclonal gammopathy of unknown significance) TYPE AND DATE OF THE EXAM THAT IS THE BASIS OF THE REQUEST: PET 03/20/2024 IMAGING: [facility] Note to all persons requesting biopsies: All biopsy requests will be scheduled as quickly as possible, based on the clinical urgency, availability of appointment times, the need to hold anti-thrombolytic therapy (aspirin, blood thinners) and the patient?s schedule, including the need for an available concrete truck driver. If a percutaneous biopsy or drainage is not felt to be safe or an alternative method for establishing a diagnosis is possible, this will be discussed directly with the requesting physician. Karla Felix RN 04/03/2024 5:51 PM Addendum Random [place] Kidney Biopsy is Approved to be Done in Ultrasound. Patient will stay overnight in 23-hr Observation bed (Platelets AND INR - ordered) BX. COORDINATOR INFORMATION LAB RESULTS: No results found for: INR No results found for: APTT Platelet Count (k/uL) Date Value 02/24/2024 285 07/21/2021 254 Current Outpatient Medications Medication Sig anastrozole (ARIMIDEX) 1 mg tablet TAKE 1 TABLET BY MOUTH EVERY DAY (Patient not taking: Reported on 02/24/2024) doxazosin (CARDURA) 4 mg tablet Take 4 mg by mouth daily at bedtime. Takes 2mg in morning then 4mg at night aspirin (ASPIR-81 ORAL) Take 81 mg by [...] Take 1 tablet by mouth twice daily. rivaroxaban (XARELTO) 20 mg tablet Take 20 mg by mouth daily with dinner. (Patient not taking: Reported on 11/25/2023) ezetimibe (ZETIA) 10 mg tablet Take 10 mg by mouth once daily. carvedilol (COREG) 25 mg tablet Take 25 mg by mouth as directed. Takes 1 1/2 tablet 2x a day Multivitamin capsule Take 1 capsule by mouth once daily. (Patient not taking: Reported on 11/25/2023) furosemide (LASIX) 40 mg tablet Take 40 mg by mouth once daily. Alternates with 20mg No current facility-administered medications for this visit. ALLERGIES Allergen Reactions Rygwcqt-Hxd-Fmb Red* Unknown Other reaction(s): AOF FILMS SENT TO WORKSTATION: GUIDELINES FOR HOLDING ANTI-PLATELET AND ANTI- COAGULATION THERAPY: Xarelto. This should be held 2 Doses prior to biopsy. NURSE SIGNATURE: Karla Alston RN DATE: April 02, 2024 TIME: 11:35 AM Lulu Mejia 04/06/2024 1:10 PM Signed Spoke to Pt and daughter. Scheduled 04/16 1100am. Pt order built in [employer] As of Date: 04/02/2024 Noted Allergy Reaction [id number]-[id number] REDUCTASE INHIBIT*01/21/2018 16 - Unknown Comments: Other reaction(s): AOF Date Reviewed: 02/24/2024 Reviewed by: Arabella Cotter MA - Fully Assessed Reason for Visit: Renal biopsy [Other] Prescriptions as of 04/06/2024 - anastrozole (ARIMIDEX) 1 mg tablet TAKE 1 TABLET BY MOUTH EVERY DAY - doxazosin (CARDURA) 4 mg tablet Take 4 mg by mouth daily at bedtime. Takes 2mg in morning then 4mg at night - aspirin (ASPIR-81 ORAL) Take 81 mg [...] - potassium chloride (K-TAB) 10 mEq tablet - omeprazole (PRILOSEC) 40 mg capsule Take [...] 25 mg tablet Take 25 mg by mout (more content not included)... [facility] Rita [facility]01[facility]20[facility] ANDREW BARROS ([id number]) 1945 F Date Time Provider Department 04/01/24 SANDEEP LENZ During your visit today, we recorded the following information about you: Jatinder Hooper 04/01/2024 3:26 PM Signed Sandeep Lenz MD P [facility] Clerical Pool; [facility] Triage Pool Hello - entered orders for kidney biopsy for MGUS. Also may need to see a heart nurse to consider a EGD for the PET results showing distal gastric uptake. Referral for this placed also. Jatinder Hooper 04/02/2024 7:07 AM Signed Main id say ;) thank you. Aileen Burleson RN 04/03/2024 9:59 AM Signed Schedulers please see attached feed to schedule EGD as able. I'm not sure if this is supposed to come to you ladies or elsewhere. Thank you Aileen Burleson RN Please assist with scheduling EGD with first available provider. Re Ballesteros Jr., Ashlie Lugo Zane MattsonKctjpur58 hours ago (10:51 AM) JIL Just sent the triage to [facility] also Sachin Huffman 04/03/2024 12:47 PM Signed Left message on voicemail for patient to call and schedule Sachin Marsh 04/03/2024 12:48 PM Signed Left message on voicemail for patient to call and schedule [place] Jatinder Mattson 04/08/2024 10:56 AM Signed Elio stephenson can you please call Dtr to see if she will be able to schedule appt Sachin Marsh 04/08/2024 11:15 AM Signed I did call the daughter Jatinder Malik 04/08/2024 11:17 AM Signed Patient and family have been called X 3 for scheduling EGD... just FYI Allergies As of Date: 04/01/2024 Noted Allergy Reaction GDZCOPA-NTG-PBT REDUCTASE INHIBIT*01/21/2018 16 - Unknown Comments: Other reaction(s): AOF Date Reviewed: 02/24/2024 Reviewed by: Arabella Cotter MA - Fully Assessed Reason for Visit: Appointment Confirmation [3509] Primary Visit Diagnosis:Abnormal gastrointestinal PET scan [R94.8] Other Visit Diagnosis:Gastritis, presence of bleeding unspecified, unspecified chronicity, unspecified gastritis type [K29.70] Order(s):EGD DIAGNOSTIC [GI9] Order #: [id number] FUTURE Prescriptions as of 04/21/2024 - anastrozole (ARIMIDEX) 1 mg tablet TAKE 1 TABLET BY MOUTH EVERY DAY - doxazosin (CARDURA) 4 mg tablet Take 4 mg by mouth daily at bedtime. Takes 2mg in morning then 4mg at night - ferrous sulfate 325 mg (65 mg [...] - potassium chloride (K-TAB) 10 mEq tablet - omeprazole (PRILOSEC) 40 mg capsule Take 40 mg by mouth once daily. - calcium-cholecalciferol, D3, (OSCAL+D 250) 250-125 mg-unit per tablet Take 1 tablet by mouth twice daily. - ezetimibe (ZETIA) 10 mg tablet Take 10 mg by mouth once daily. - carvedilol (COREG) 25 mg tablet Take 25 mg by mouth as directed. Takes 1 1/2 tablet 2x a day - Multivitamin capsule Take 1 capsule by mouth once daily. - furosemide (LASIX) 40 mg tablet Take 40 mg by mouth once daily. Alternates with 20mg Problem List As Of Date 04/01/2024 Noted Resolved Malignant neoplasm of upper-outer quadrant of l*06/12/2018 Other specified menopausal and perimenopausal d*04/20/2021 Hypercalcemia [E83.52] 04/29/2023 Stage 3 chronic kidney disease, unspecified whe*05/05/2023 Encounter Status:[facility] ----- ANDREW BARROS ([id number]) 1945 F Date Time Provider Department 03/27/24 SANDEEP LENZ During your visit today, we recorded the following information about you: Geneva Nichols HUC 03/27/2024 10:56 AM Signed -------- Sandeep Lenz MD [facility] Clerical Pool; [facility] Triage Pool Hello - entered orders for kidney biopsy for MGUS. Also may need to see a heart nurse to consider a EGD for the PET results showing distal gastric uptake. Referral for this placed also. Geneva Nichols HUC 03/27/2024 11:47 AM Signed I called and spoke with the Patient's granddaughter. I am waiting on a call back from the Patient to see if the Patient would like to be scheduled with Gastro either in the [facility] or locally here in [place]. Jatinedr Mary RN 03/27/2024 3:11 PM Signed ----- Message from Sandeep Lenz MD sent at 03/26/2024 10:45 AM EDT ----- Elio Ross - your PET CT didn't show any hole or lytic lesions in the bones. So I think we should plan to do a kidney biopsy to determine the imapct of your abnormal protein on the kidneys. Allergies As of Date: 03/27/2024 Noted Allergy Reaction [id number]-RHF-GNH REDUCTASE INHIBIT*01/21/2018 16 - Unknown Comments: Other reaction(s): AOF Date Reviewed: 02/24/2024 Reviewed by: Arabella Cotter MA - Fully Assessed Prescriptions as of 06/10/2024 - anastrozole (ARIMIDEX) 1 mg tablet TAKE 1 TABLET BY MOUTH EVERY DAY - doxazosin (CARDURA) 4 mg tablet Take 4 mg by mouth daily at bedtime. Takes 2mg in morning then 4mg at night - ferrous sulfate 325 mg (65 mg [...] - potassium chloride (K-TAB) 10 mEq tablet - omeprazole (PRILOSEC) 40 mg capsule Take 40 mg by mouth once daily. - calcium-cholecalciferol, D3, (OSCAL+D 250) 250-125 mg-unit per tablet Take 1 tablet by mouth twice daily. - ezetimibe (ZETIA) 10 mg tablet Take 10 mg by mouth once daily. - carvedilol (COREG) 25 mg tablet Take 25 mg by mouth as directed. Takes 1 1/2 tablet 2x a day - Multivitamin capsule Take 1 capsule by mouth once daily. - furosemide (LASIX) 40 mg tablet Take 40 mg by mouth once daily. Alternates with 20mg Problem List As Of Date 03/27/2024 Noted Resolved Malignant neoplasm of upper-outer quadrant of l*06/12/2018 Other specified menopausal and perimenopausal d*04/20/2021 Hypercalcemia [E83.52] 04/29/2023 Stage 3 chronic kidney disease, unspecified whe*05/05/2023 Encounter Status:Closed by GENEVA NICHOLS on 06/10/24 Normal [facility] PET+CT Whole body Bone W 18F -NaF Carmen 03-25-2024 IMPRESSION: HEAD/NECK: * No FDG avid neoplastic process. * Mild FDG avidity associated with chronic sinusitis. CHEST: * Posttreatment changes in the left breast without evidence of recurrent disease. * No hypermetabolic lymphadenopathy. ABDOMEN/PELVIS: * Focal uptake at the distal gastric body. Although this is nonspecific and may be benign/inflammatory, for example related to gastritis or peptic ulcer disease, underlying malignancy is not excluded. Correlation with endoscopy is recommended. * Diffuse patchy uptake in the small and large bowel is most likely medication related. MUSCULOSKELETAL: * No FDG avid neoplastic process. Transcribe Date/Time: Mar 25 2024 2:18P Dictated by: MAHOGAYN SWAN MD This examination was interpreted and the report reviewed and electronically signed by: STAYC MENSAH MD on Mar 25 2024 3:21PM EST Thank you for allowing us to participate in the care of your patient. Should there be any questions regarding this interpretation, please call [phone]. If you are unable to reach us at the number above, please feel free to contact [facility] at [phone]. DIVISION OF RADIOLOGY * * *Final Report* * * DATE OF EXAM: Mar 20 2024 3:06PM NRN [id number] - NM PET/CT WHOLE BODY INIT / PROCEDURE REASON: Multiple myeloma not having achieved remission (HCC) * * * * Physician Interpretation * * * * RESULT: EXAMINATION: BODY FDG PET-CT CLINICAL HISTORY: 78 year old with history of left breast cancer diagnosed 2018 status post lumpectomy and radiation with recent M-spike INDICATION: Initial treatment strategy. TECHNIQUE: Radiopharmaceutical was administered IV followed about 60 minutes later by PET imaging from skull vertex to feet (whole-body). Free breathing, low dose CT of the same body region was acquired without IV contrast for attenuation correction and anatomic localization. * CT Dose-Length Product (DLP): 286 mGy*cm * CT Dose Reduction Employed: Yes * Blood glucose (mg/dL): 122 * Radiopharmaceutical Activity: 6.6 mCi * Radiopharmaceutical: L15-Vogrvbvlcfjopsardr (FDG) * All reported standardized uptake values represent maximum SUV (SUVmax) per body weight, unless otherwise specified. COMPARISON: No previous FDG PET/CT available CORRELATION: No relevant imaging available RESULT: REFERENCES: SUV reference values: * Blood pool (descending aorta) activity: SUVmax 2.8 * Background liver activity: SUVmax 3.3 Fire Prevention Inspector (topogram) images: No additional findings. Notes and limitations: * Standardized uptake values indicate the highest activity concentration (SUVmax) at a given location but can be variable and are not absolute. * Physiologic/non-neoplasti c uptake is common in the brain, extraocular muscles, oral cavity, tonsils, salivary glands, vocal cords, myocardium, liver, GI tract, urinary tract, and bone marrow among others. Certain regions and organ systems can have more intense uptake, which could confound or obscure some pathology. * Unenhanced imaging is limited for the evaluation of some pathology and the acquired CT was not designed to produce or replace diagnostic CT scan quality. * PET-CT is often not sensitive for pulmonary nodules less than 8 mm. HEAD AND NECK: Head: No suspicious uptake. Right maxillary sinus mucoperiosteal thickening with associated mild uptake, likely inflammatory. Neck & Lymph Nodes: No abnormal uptake. Thyroid: No abnormal uptake. CHEST: Lungs & Airways: No abnormal uptake. Calcified granuloma(s). Pleura & Pericardium: No abnormal uptake. No effusion. Cardiovascular: No abnormal uptake. Scattered thoracic aortic calcifications. Mediastinum & Lymph Nodes: No abnormal uptake. Calcified granulomata. Chest Wall: Postoperative changes of left breast lumpectomy and axillary dissection. There is diffuse skin thickening of the left breast with mild uptake slightly higher than mediastinal blood pool, max SUV 3.1 (7:172, 3:107), most likely related to prior radiation. ABDOMEN AND PELVIS: Hepatobiliary: No abnormal uptake. Calcified granulomata. Spleen: No abnormal uptake. Calcified granulomata. Pancreas: No abnormal uptake. Adrenals: No abnormal uptake. Urinary Tract: No abnormal uptake. GI Tract: Focal uptake at the distal gastric body measures SUV max 9.4 (7:218). Areas of segmental increased small large bowel uptake, possibly medication related. No dilated bowel. Moderate to large volume colonic stool. Peritoneum: No abnormal uptake. No ascites. Vasculature: No abnormal uptake. Atherosclerotic calcifications without an abdominal aortic aneurysm. Retroperitoneum & Lymph Nodes: No abnormal uptake. Pelvis: No abnormal uptake. Calcified uterine fibroids. MUSCULOSKELETAL: Osseous: No abnormal uptake. No FDG avid or otherwise suspicious focal osseous lesion. Degenerative changes. Soft Tissues: No abnormal uptake. DIVISION OF RADIOLOGY Provider, [facility] - 03/25/2024 * * *Final Report* * * DATE OF EXAM: Mar 20 2024 3:06PM NRN [id number] - NM PET/CT WHOLE BODY INIT / PROCEDURE REASON: Multiple myeloma not having achieved remission (HCC) * * * * Physician Interpretation * * * * RESULT: EXAMINATION: BODY FDG PET-CT CLINICAL HISTORY: 78 year old with history of left breast cancer diagnosed 2018 status post lumpectomy and radiation with recent M-spike INDICATION: Initial treatment strategy. TECHNIQUE: Radiopharmaceutical was administered IV followed about 60 minutes later by PET imaging from skull vertex to feet (whole-body). Free breathing, low dose CT of the same body region was acquired without IV contrast for attenuation correction and anatomic localization. * CT Dose-Length Product (DLP): 286 mGy*cm * CT Dose Reduction Employed: Yes * Blood glucose (mg/dL): 122 * Radiopharmaceutical Activity: 6.6 mCi * Radiopharmaceutical: Y17-Ymglujqdstumtmysbk (FDG) * All reported standardized uptake values represent maximum SUV (SUVmax) per body weight, unless otherwise specified. COMPARISON: No previous FDG PET/CT available CORRELATION: No relevant imaging available RESULT: REFERENCES: SUV reference values: * Blood pool (descending aorta) activity: SUVmax 2.8 * Background liver activity: SUVmax 3.3 Fire Prevention Inspector (topogram) images: No additional findings. Notes and limitations: * Standardized uptake values indicate the highest activity concentration (SUVmax) at a given location but can be variable and are not absolute. * Physiologic/non-neoplasti c uptake is common in the brain, extraocular muscles, oral cavity, tonsils, salivary glands, vocal cords, myocardium, liver, GI tract, urinary tract, and bone marrow among others. Certain regions and organ systems can have more intense uptake, which could confound or obscure some pathology. * Unenhanced imaging is limited for the evaluation of some pathology and the acquired CT was not designed to produce or replace diagnostic CT scan quality. * PET-CT is often not sensitive for pulmonary nodules less than 8 mm. HEAD AND NECK: Head: No suspicious uptake. Right maxillary sinus mucoperiosteal thickening with associated mild uptake, likely inflammatory. Neck & Lymph Nodes: No abnormal uptake. Thyroid: No abnormal uptake. CHEST: Lungs & Airways: No abnormal uptake. Calcified granuloma(s). Pleura & Pericardium: No abnormal uptake. No effusion. Cardiovascular: No abnormal uptake. Scattered thoracic aortic calcifications. Mediastinum & Lymph Nodes: No abnormal uptake. Calcified granulomata. Chest Wall: Postoperative changes of left breast lumpectomy and axillary dissection. There is diffuse skin thickening of the left breast with mild uptake slightly higher than mediastinal blood pool, max SUV 3.1 (7:172, 3:107), most likely related to prior radiation. ABDOMEN AND PELVIS: Hepatobiliary: No abnormal uptake. Calcified granulomata. Spleen: No abnormal uptake. Calcified granulomata. Pancreas: No abnormal uptake. Adrenals: No abnormal uptake. Urinary Tract: No abnormal uptake. GI Tract: Focal uptake at the distal gastric body measures SUV max 9.4 (7:218). Areas of segmental increased small large bowel uptake, possibly medication related. No dilated bowel. Moderate to large volume colonic stool. Peritoneum: No abnormal uptake. No ascites. Vasculature: No abnormal uptake. Atherosclerotic calcifications without an abdominal aortic aneurysm. Retroperitoneum & Lymph Nodes: No abnormal uptake. Pelvis: No abnormal uptake. Calcified uterine fibroids. MUSCULOSKELETAL: Osseous: No abnormal uptake. No FDG avid or otherwise suspicious focal osseous lesion. Degenerative changes. Soft Tissues: No abnormal uptake. IMPRESSION IMPRESSION: HEAD/NECK: * No FDG avid neoplastic process. * Mild FDG avidity associated with chronic sinusitis. CHEST: * Posttreatment changes in the left breast without evidence of recurrent disease. * No hypermetabolic lymphadenopathy. ABDOMEN/PELVIS: * Focal uptake at the distal gastric body. Although this is nonspecific and may be benign/inflammatory, for example related to gastritis or peptic ulcer disease, underlying malignancy is not excluded. Correlation with endoscopy is recommended. * Diffuse patchy uptake in the small and large bowel is most likely medication related. MUSCULOSKELETAL: * No FDG avid neoplastic process. Transcribe Date/Time: Mar 25 2024 2:18P Dictated by: MAHOGANY SWAN MD This examination was interpreted and the report reviewed and electronically signed by: STACY MENSAH MD on Mar 25 2024 3:21PM EST Thank you for allowing us to participate in the care of your patient. Should there be any questions regarding this interpretation, please call [phone]. (more content not included)... [facility] PET+CT Whole body Bone W 18F -NaF IVOrdered By: Nahomy Provider on 03-25-2024 [facility] GLUCOSE, BLOOD (POC)on 03-20 Glucose [Mass/Vol] 122 mg/dL Abnormal 74 - 99 mg/dL [facility] Comment on above: Location:[facility], [address] [place] [address] [address] [place], [place], [address] The Accu-Chek Inform II glucose meter has not been approved for testing on patients receiving intensive medical intervention or therapy and results from this point of care glucose test should not be used for patient management decisions in these cases. Inaccurate results may also occur from other interfering factors, such as N-acetylcysteine (blood concentrations of greater than 5mg/dL), galactose, extremes of hematocrit (<10 or >65), or high doses of ascorbic acid (vitamin C) greater than 3mg/dL. Consider alternate testing mechanisms (e.g. core lab, blood gas instrument) in the above situations. Interpretation and review of laboratory results Abnormal [facility] NM PET/CT WHOLE BODY INITon 03-20-2024 NM PET/CT WHOLE BODY INIT * * *Final Report* * * DATE OF EXAM: Mar 20 2024 3:06PM NRN [id number] - NM PET/CT WHOLE BODY INIT / PROCEDURE REASON: Multiple myeloma not having achieved remission (HCC) * * * * Physician Interpretation * * * * RESULT: EXAMINATION: BODY FDG PET-CT CLINICAL HISTORY: 78 year old with history of left breast cancer diagnosed 2018 status post lumpectomy and radiation with recent M-spike INDICATION: Initial treatment strategy. TECHNIQUE: Radiopharmaceutical was administered IV followed about 60 minutes later by PET imaging from skull vertex to feet (whole-body). Free breathing, low dose CT of the same body region was acquired without IV contrast for attenuation correction and anatomic localization. * CT Dose-Length Product (DLP): 286 mGy*cm * CT Dose Reduction Employed: Yes * Blood glucose (mg/dL): 122 * Radiopharmaceutical Activity: 6.6 mCi * Radiopharmaceutical: F09-Cdjcpptebetyqqcoeo (FDG) * All reported standardized uptake values represent maximum SUV (SUVmax) per body weight, unless otherwise specified. COMPARISON: No previous FDG PET/CT available CORRELATION: No relevant imaging available RESULT: REFERENCES: SUV reference values: * Blood pool (descending aorta) activity: SUVmax 2.8 * Background liver activity: SUVmax 3.3 Fire Prevention Inspector (topogram) images: No additional findings. Notes and limitations: * Standardized uptake values indicate the highest activity concentration (SUVmax) at a given location but can be variable and are not absolute. * Physiologic/non-neoplasti c uptake is common in the brain, extraocular muscles, oral cavity, tonsils, salivary glands, vocal cords, myocardium, liver, GI tract, urinary tract, and bone marrow among others. Certain regions and organ systems can have more intense uptake, which could confound or obscure some pathology. * Unenhanced imaging is limited for the evaluation of some pathology and the acquired CT was not designed to produce or replace diagnostic CT scan quality. * PET-CT is often not sensitive for pulmonary nodules less than 8 mm. HEAD AND NECK: Head: No suspicious uptake. Right maxillary sinus mucoperiosteal thickening with associated mild uptake, likely inflammatory. Neck and Lymph Nodes: No abnormal uptake. Thyroid: No abnormal uptake. CHEST: Lungs and Airways: No abnormal uptake. Calcified granuloma(s). Pleura and Pericardium: No abnormal uptake. No effusion. Cardiovascular: No abnormal uptake. Scattered thoracic aortic calcifications. Mediastinum and Lymph Nodes: No abnormal uptake. Calcified granulomata. Chest Wall: Postoperative changes of left breast lumpectomy and axillary dissection. There is diffuse skin thickening of the left breast with mild uptake slightly higher than mediastinal blood pool, max SUV 3.1 (7:172, 3:107), most likely related to prior radiation. ABDOMEN AND PELVIS: Hepatobiliary: No abnormal uptake. Calcified granulomata. Spleen: No abnormal uptake. Calcified granulomata. Pancreas: No abnormal uptake. Adrenals: No abnormal uptake. Urinary Tract: No abnormal uptake. GI Tract: Focal uptake at the distal gastric body measures SUV max 9.4 (7:218). Areas of segmental increased small large bowel uptake, possibly medication related. No dilated bowel. Moderate to large volume colonic stool. Peritoneum: No abnormal uptake. No ascites. Vasculature: No abnormal uptake. Atherosclerotic calcifications without an abdominal aortic aneurysm. Retroperitoneum and Lymph Nodes: No abnormal uptake. Pelvis: No abnormal uptake. Calcified uterine fibroids. MUSCULOSKELETAL: Osseous: No abnormal uptake. No FDG avid or otherwise suspicious focal osseous lesion. Degenerative changes. Soft Tissues: No abnormal uptake. IMPRESSION: HEAD/NECK: * No FDG avid neoplastic process. * Mild FDG avidity associated with chronic sinusitis. CHEST: * Posttreatment changes in the left breast without evidence of recurrent disease. * No hypermetabolic lymphadenopathy. ABDOMEN/PELVIS: * Focal uptake at the distal gastric body. Although this is nonspecific and may be benign/inflammatory, for example related to gastritis or peptic ulcer disease, underlying malignancy is not excluded. Correlation with endoscopy is recommended. * Diffuse patchy uptake in the small and large bowel is most likely medication related. MUSCULOSKELETAL: * No FDG avid neoplastic process. Transcribe Date/Time: Mar 25 2024 2:18P Dictated by: MAHOGANY SWAN MD This examination was interpreted and the report reviewed and electronically signed by: STACY MENSAH MD on Mar 25 2024 3:21PM EST Thank you for allowing us to participate in the care of your patient. Should there be any questions regarding this interpretation, please call [phone]. If you are unable to reach us at the number above, please feel free to contact [facility] eRadiology at [phone]. [id number] Normal [facility] PET+CT Whole body Bone W 18F -NaF Carmen 03-20-2024 Radiology Study observation (narrative) [facility] CNPNon 03-04-2024 [facility] ----- ANDREW BARROS ([id number]) 1945 F Date Time Provider Department 03/04/24 SANDEEP LENZ During your visit today, we recorded the following information about you: Jennifer Otero 03/04/2024 1:[address] Perry: Patient had labs drawn on 02/25. Patient was scheduled for a phone visit with you on 03/17. We have rescheduled this phone visit to 03/24. Thank You, Sandeep Han MD 03/06/2024 10:34 AM Signed Looks like she has an M-spike and will need further work-up. I would get a PET/CT whole body in order to determine lytic lesions Then would determine need for further workup. Hope we can arrange imaging prior to my appointment? Sandeep Lenz MD 03/06/2024 10:34 AM Signed Addended by: SANDEEP LENZ on: 03/06/2024 10:34 AM Modules accepted: Clemente Molina RN 03/06/2024 10:44 AM Signed Pt notified of Orlando's message and is agreeable to plan of care. PSS: Please call to schedule PET; If possible prior to 03/24 for VV with Orlando to discuss all results and determine plan JARRET Grimaldo Courtney 03/06/2024 11:29 AM Signed Patient is scheduled for her PET scan on Saturday, 03/20 at 1:30pm. I left a detailed message for Andrew informing her of this date/time. ThanksShasta Allergies As of Date: 03/04/2024 Noted Allergy Reaction [id number] REDUCTASE INHIBIT*01/21/2018 16 - Unknown Comments: Other reaction(s): AOF Date Reviewed: 02/24/2024 Reviewed by: Arabella Cotter MA - Fully Assessed Primary Visit Diagnosis:Multiple myeloma not having achieved remission (HCC) [C90.00] Order(s):NM PET/CT WHOLE BODY INITIAL [[id number]] Order #: [id number] FUTURE Prescriptions as of 03/06/2024 - anastrozole (ARIMIDEX) 1 mg tablet TAKE 1 TABLET BY MOUTH EVERY DAY - doxazosin (CARDURA) 4 mg tablet Take 4 mg by mouth daily at bedtime. Takes 2mg in morning then 4mg at night - aspirin (ASPIR-81 ORAL) Take 81 mg [...] - potassium chloride (K-TAB) 10 mEq tablet - omeprazole (PRILOSEC) 40 mg capsule Take [...] Take 40 mg by mouth once daily. Alternates with 20mg Problem List As Of Date 03/04/2024 Noted Resolved Malignant neoplasm of upper-outer quadrant of l*06/12/2018 Other specified menopausal and perimenopausal d*04/20/2021 Hypercalcemia [E83.52] 04/29/2023 Stage 3 chronic kidney disease, unspecified whe*05/05/2023 Encounter Status:Closed by JENNIFER OTERO on 03/04/24 Normal [facility] MONOCLONAL PROT 24 UR W/INTE RPon 02-26-2024 INTERPRETATION (PA) An atypical restri cted band is present in the kappa region. 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 Normal [facility] Comment on above: Order Comment: Speci men Type: URINE SPECIMENOrdering Facility: [facility] Address: [address] [place] [address] Performed By: #### U 24MPA ####[facility] LABCLIA [id number] [address] [place] STAFF REVIEW ([place]) Reviewed by Dr. Maria G Keane MD Normal [facility] Comment on above: Order Comment: Speci men Type: URINE SPECIMENOrdering Facility: [facility] Address: [address] [place] [address] Performed By: #### U 24MPA ####[facility] LABIA [id number] [place] [address] [place] UMPA RESULT M protein is present. Abnormal No M protein is identified. [facility] Comment on above: Order Comment: Speci men Type: URINE SPECIMENOrdering Facility: [facility] Address: [address] [place] [address] Performed By: #### U 24MPA ####[facility] [id number] [place] [address] [place] PROT ELEC UR 24HR W/M SPIKE (P)on 02-26-2024 Albumin/Globulin Elph (24H U) [Mass ratio] 59.87 % Normal [facility] Comment on above: Order Comment: Speci men Type: URINE SPECIMENOrdering Facility: [facility] Address: [address] [place] [address] Performed By: #### L [id number] ####[facility] [id number] [place] [address] [place] Alpha 1 globulin Elph (24H U) [Mass fraction] 3.80 % Normal [facility] Comment on above: Order Comment: Speci men Type: URINE SPECIMENOrdering Facility: [facility] Address: [address] [place] [address] Performed By: #### L [id number] ####[facility] [id number] [place] [address] [place] Alpha 2 globulin Elph (24H U) [Mass fraction] 8.65 % Normal [facility] Comment on above: Order Comment: Speci men Type: URINE SPECIMENOrdering Facility: [facility] Address: [address] [place] [address] Performed By: #### L [id number] ####[facility] LABIA [id number] [place] [address] [place] Beta globulin Elph (24H U) [Mass fraction] 14.92 % Normal [facility] Comment on above: Order Comment: Speci men Type: URINE SPECIMENOrdering Facility: [facility] Address: [address] [place] [address] Performed By: #### L [id number] ####[facility] LABIA [id number] [place] [address] [place] Gamma globulin Elph (24H U) [Mass fraction] 12.75 % Normal [facility] Comment on above: Order Comment: Speci men Type: URINE SPECIMENOrdering Facility: [facility] Address: [address] [place] [address] Performed By: #### L [id number] ####[facility] LABIA [id number] [place] [address] [place] INTERPRETATION COMMENT FOR PROTEIN ELECTROPHORESIS See separate immunofixation report for characterization of monoclonal gammopathy. Normal [facility] Comment on above: Order Comment: Speci men Type: URINE SPECIMENOrdering Facility: [facility] Address: [address] [place] [address] Performed By: #### L [id number] ####[facility] LABIA [id number] [place] [address] [place] Protein Fractions Elph Elie (24H U) [Interp] An M protein is identified on protein electrophoresis. Abnormal No definitive M protein is identified on protein electrophor esis. [facility] Comment on above: Order Comment: Speci men Type: URINE SPECIMENOrdering Facility: [facility] Address: [address] [place] [address] Performed By: #### L [id number] ####[facility] LABIA [id number] [place] [address] [place] Protein.monoclonal Elph (24H U) [Mass/Time] 0.04 g/24hr Normal [facility] Comment on above: Order Comment: Speci men Type: URINE SPECIMENOrdering Facility: [facility] Address: [address] [place], [place] [id number] Performed By: #### L [id number] ####[facility] LABCLIA [id number] [address] [address] [facility] STAFF REVIEW ([id number]) Reviewed by Dr. Sa grace Keane MD Normal [facility] Comment on above: Order Comment: Speci men Type: URINE SPECIMENOrdering Facility: [facility] Address: [address] [place] [address] Performed By: #### L [id number] ####[facility] LABCLIA [id number] [place] [id number] [place] Prot 24h Ur-mRateon 02-26-20 24 Protein (24H U) [Mass/Time] 0.73 g/24 Hr High <0.15 [facility] Comment on above: Order Comment: Speci men Type: URINE SPECIMENOrdering Facility: [facility] Address: [address] [place] [address] Result Comment: Adul t Proteinuria Categories: <0.15 g/24 hours is considered normal to mildly increased 0.15 - 0.50 g/24 hours is considered moderately increased >0.50 g/24 hours is considered severely increased KDIGO. (2013). KDIGO 2012 Clinical Practice Guideline for the Evaluation and Management of Chronic Kidney Disease. Official Journal of the International Society of Nephrology, 3(1), 1-150. Performed By: #### 2 889-4 ####[facility] LABCLIA [id number] [place] [id number] [facility] LABCLIA [id number] [place] [address] Protein (24H U) [Mass/Time]o n 02-26-2024 PERIOD (HRS) 24 hr Normal [facility] Comment on above: Order Comment: Speci men Type: URINE SPECIMENOrdering Facility: [facility] Address: [address] [place] [address] Performed By: #### 2 889-4 ####[facility] LABCLIA [id number] [address] LABCLIA [id number] [place] [id number] Specimen volume (24H U) 1.3 L Normal [facility] Comment on above: Order Comment: Speci men Type: URINE SPECIMENOrdering Facility: [facility] Address: [address] [place] [address] Performed By: #### 2 889-4 ####[facility] LABCLIA [id number] [address] LABCLIA [id number] [place] [id number] B2 Microglob SerPl-mCncon Wnac-4-Htgjnsgeuenmz [Mass/Vol] 5.1 ug/mL High <3.1 [facility] Comment on above: Order Comment: Speci men Type: BLOOD SPECIMEN Ordering Facility: [facility] Address: [address] [place] [address] Result Comment: Beta -2 Microglobulin test is performed using the [employer] immunoturbidimetric method. Results obtained with different methods or kits cannot be used interchangeably. Performed By: #### 1 952-1, 2885-2 #### [facility] LAB CLIA [id number] [address] [place] [address] [place] CBC W Auto Differential pane l (Bld)on 02-24-2024 Basophils (Bld) [#/Vol] 0.06 10*3/uL Normal <0.11 [facility] Comment on above: Order Comment: Speci men Type: BLOOD SPECIMENOrdering Facility: [facility] Address: [address] [place] [address] Performed By: #### 5 7021-8 ####[facility] LABCLIA [id number] [place] [id number] Basophils/100 WBC (Bld) 0.6 % Normal [facility] Comment on above: Order Comment: Speci men Type: BLOOD SPECIMENOrdering Facility: [facility] Address: [address] [place] [address] Performed By: #### 5 7021-8 ####[facility] LABCLIA [id number] [place] [address] Differential cell count method Nom (Bld) Auto Normal [facility] Comment on above: Order Comment: Speci men Type: BLOOD SPECIMENOrdering Facility: [facility] Address: [address] [place] [address] Performed By: #### 5 7021-8 ####[facility] LABCLIA [id number] [place] [address] Eosinophils (Bld) [#/Vol] 0.18 10*3/uL Normal <0.46 [facility] Comment on above: Order Comment: Speci men Type: BLOOD SPECIMENOrdering Facility: [facility] Address: [address] [place] [address] Performed By: #### 5 7021-8 ####[facility] LABCLIA [id number] [place] [address] Eosinophils/100 WBC (Bld) 1.8 % Normal [facility] Comment on above: Order Comment: Speci men Type: BLOOD SPECIMENOrdering Facility: [facility] Address: [address] [place] [address] Performed By: #### 5 7021-8 ####[facility] LABCLIA [id number] [place] [address] Erythrocyte distribution width (RBC) [Ratio] 13.1 % Normal 11.5-15.0 [facility] Comment on above: Order Comment: Speci men Type: BLOOD SPECIMENOrdering Facility: [facility] Address: [address] [place] [address] Performed By: #### 5 7021-8 ####[facility] LABCLIA [id number] [place] [address] Hematocrit (Bld) [Volume fraction] 42.2 % Normal 36.0-46.0 [facility] Comment on above: Order Comment: Speci men Type: BLOOD SPECIMENOrdering Facility: [facility] Address: [address] [place] [address] Performed By: #### 5 7021-8 ####[facility] LABIA [id number] [place] [address] Hemoglobin (Bld) [Mass/Vol] 13.6 g/dL Normal 11.5-15.5 [facility] Comment on above: Order Comment: Speci men Type: BLOOD SPECIMENOrdering Facility: [facility] Address: [address] [place] [address] Performed By: #### 5 7021-8 ####[facility] LABIA [id number] [place] [address] Immature granulocytes (Bld) [#/Vol] 0.04 10*3/uL Normal <0.10 [facility] Comment on above: Order Comment: Speci men Type: BLOOD SPECIMENOrdering Facility: [facility] Address: [address] [place] [address] Performed By: #### 5 7021-8 ####[facility] LABIA [id number] [place] [address] Immature granulocytes/100 WBC (Bld) 0.4 % Normal [facility] Comment on above: Order Comment: Speci men Type: BLOOD SPECIMENOrdering Facility: [facility] Address: [address] [place] [address] Performed By: #### 5 7021-8 ####[facility] LABIA [id number] [place] [address] Lymphocytes (Bld) [#/Vol] 1.11 10*3/uL Normal 1.00-4.00 [facility] Comment on above: Order Comment: Speci men Type: BLOOD SPECIMENOrdering Facility: [facility] Address: [address] [place] [address] Performed By: #### 5 7021-8 ####[facility] LABCLIA [id number] [place] [address] Lymphocytes/100 WBC (Bld) 11.4 % Normal [facility] Comment on above: Order Comment: Speci men Type: BLOOD SPECIMENOrdering Facility: [facility] Address: [address] [place] [address] Performed By: #### 5 7021-8 ####[facility] LABCLIA [id number] [place] [address] MCH (RBC) [Entitic mass] 29.5 pg Normal 26.0-34.0 [facility] Comment on above: Order Comment: Speci men Type: BLOOD SPECIMENOrdering Facility: [facility] Address: [address] [place] [address] Performed By: #### 5 7021-8 ####[facility] LABCLIA [id number] [place] [address] MCHC (RBC) [Mass/Vol] 32.2 g/dL Normal 30.5-36.0 [facility] Comment on above: Order Comment: Speci men Type: BLOOD SPECIMENOrdering Facility: [facility] Address: [address] [place] [address] Performed By: #### 5 7021-8 ####[facility] LABCLIA [id number] [place] [address] MCV (RBC) [Entitic vol] 91.5 fL Normal 80.0-100.0 [facility] Comment on above: Order Comment: Speci men Type: BLOOD SPECIMENOrdering Facility: [facility] Address: [address] [place] [address] Performed By: #### 5 7021-8 ####[facility] LABCLIA [id number] [place] [address] Monocytes (Bld) [#/Vol] 1.00 10*3/uL High <0.87 [facility] Comment on above: Order Comment: Speci men Type: BLOOD SPECIMENOrdering Facility: [facility] Address: [address] [place] [address] Performed By: #### 5 7021-8 ####[facility] LABCLIA [id number] [place] [address] Monocytes/100 WBC (Bld) 10.3 % Normal [facility] Comment on above: Order Comment: Speci men Type: BLOOD SPECIMENOrdering Facility: [facility] Address: [address] [place] [address] Performed By: #### 5 7021-8 ####[facility] LABCLIA [id number] [place] [address] Neutrophils (Bld) [#/Vol] 7.34 10*3/uL Normal 1.45-7.50 [facility] Comment on above: Order Comment: Speci men Type: BLOOD SPECIMENOrdering Facility: [facility] Address: [address] [place] [address] Performed By: #### 5 7021-8 ####[facility] LABCLIA [id number] [place] [address] Neutrophils/100 WBC (Bld) 75.5 % Normal [facility] Comment on above: Order Comment: Speci men Type: BLOOD SPECIMENOrdering Facility: [facility] Address: [address] [place] [address] Performed By: #### 5 7021-8 ####[facility] LABCLIA [id number] [place] [address] Nucleated RBC (Bld) [#/Vol] 10*3/uL Normal <0.01 [facility] Comment on above: Order Comment: Speci men Type: BLOOD SPECIMENOrdering Facility: [facility] Address: [address] [place] [address] Performed By: #### 5 7021-8 ####[facility] LABCLIA [id number] [place] [address] Nucleated RBC/100 WBC (Bld) [Ratio] 0.0 /100 WBC Normal [facility] Comment on above: Order Comment: Speci men Type: BLOOD SPECIMENOrdering Facility: [facility] Address: [address] [place] [address] Performed By: #### 5 7021-8 ####[facility] LABCLIA [id number] [place] [address] Platelet mean volume (Bld) [Entitic vol] 10.8 fL Normal 9.0-12.7 [facility] Comment on above: Order Comment: Speci men Type: BLOOD SPECIMENOrdering Facility: [facility] Address: [address] [place] [address] Performed By: #### 5 7021-8 ####[facility] LABCLIA [id number] [place] [address] Platelets (Bld) [#/Vol] 285 10*3/uL Normal 150-400 [facility] Comment on above: Order Comment: Speci men Type: BLOOD SPECIMENOrdering Facility: [facility] Address: [address] [place] [address] Performed By: #### 5 7021-8 ####[facility] LABCLIA [id number] [place] [address] RBC (Bld) [#/Vol] 4.61 10*6/uL Normal 3.90-5.20 [facility] Comment on above: Order Comment: Speci men Type: BLOOD SPECIMENOrdering Facility: [facility] Address: [address] [place] [address] Performed By: #### 5 7021-8 ####[facility] LABCLIA [id number] [place] [address] WBC (Bld) [#/Vol] 9.73 10*3/uL Normal 3.70-11.00 [facility] Comment on above: Order Comment: Speci men Type: BLOOD SPECIMENOrdering Facility: [facility] Address: [address] [place] [address] Performed By: #### 5 7021-8 ####[facility] LABCLIA [id number] [place] [address] CNOVSPon 02-24-2024 CNOVSP Visit (SP) Office ([place]) ----- ANDREW BARROS ([id number]) 1945 F Date Time Provider Department 02/24/24 11:30 AM SANDEEP LENZ During your visit today, we recorded the following information about you: Temperature Pulse Respiration Blood pressure 97.3 degrees 63/minute 16/minute 155/77 Weight Height 61.1 kg 1.602 m Sandeep Lenz MD 02/24/2024 7:22 PM Signed NAME: Rosa Barrosence CLINIC NO.: [id number] DATE OF SERVICE: February 24, 2024 (Yoanna) Some elements in this clinic note that are critical to medical decision making have been carefully reviewed and included from a prior clinic note dated: November 25, 2023 (Yoanna) Referring Provider: Eduardo Sharpe Additional Clinicians involved in Andrewpeter Barros's care: DIAGNOSIS: History of Breast Cancer [...] 2023. Stopped taking Calcium - level normalized. Seen by Dr. 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 Needs 24 H urine collection also Virtual visit in 15 days. RTC in 1 year - repeat labs - Exam same day. Repeat Mammogram prior to return Stop Arimidex. __ HPI: CASE HISTORY: Reverse Chronological Order 08/28/2023 - Bilateral Mammogram Diagnostic category 2 Benign 05/02/2023 - Bone Scan - negative for osseous mets. 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 04/24/2021 - DEXA scan World Health Organization classification: Normal-low fracture risk. 01/04/2021 - Mammograms at [facility] Bi-Rads 2 benign. 09/26/2018 - Started arimidex 09/10/2018 - Completed radiation 06/05/2018 - L breast lumpectomy and SNB Updated Visit, February 24, 2024: Presents with daughter Sugey and was found to have an M-spike by her accounting professor, Dr. Rojo. We discussed potential diagnoses and implications but will wait until adequate work up and diagnosis. Will start work-up. No other symptoms except for elevated calcium and also worsening kidney function. Updated Visit, November 25, 2023: Returns with [...] or concerns for recurrence. At this time (more content not included)... Normal [facility] Calcium.ionized [Moles/Vol]o n 02-24-2024 Calcium.ionized (Bld) [Mass/Vol] 1.33 mmol/L High 1.08 - 1.30 mmol/L [facility] Calcium.ionized adjusted to pH 7.4 (Bld) [Moles/Vol] 1.31 mmol/L High 1.08 - 1.30 mmol/L [facility] Interpretation and review of laboratory results Abnormal [facility] Calcium.ionized (Bld) [Mass/Vol] 1.33 mmol/L High 1.08-1.30 [facility] Comment on above: Order Comment: Speci men Type: BLOOD SPECIMENOrdering Facility: [facility] Address: [address] [place] [address] Performed By: #### 1 995-0 ####[facility] LABIA [id number] [place] [address] [place] Calcium.ionized adjusted to pH 7.4 (Bld) [Moles/Vol] 1.31 mmol/L High 1.08-1.30 [facility] Comment on above: Order Comment: Speci men Type: BLOOD SPECIMENOrdering Facility: [facility] Address: [address] [place] [address] Performed By: #### 1 995-0 ####[facility] [id number] [place] [address] [place] Calcium.ionized (Bld) [Mass/Vol] 1.30 mmol/L Normal 1.08-1.30 [facility] Comment on above: Order Comment: Speci men Type: BLOOD SPECIMENOrdering Facility: [facility] Address: [address] [place] [address] Performed By: #### 1 995-0 ####[facility] [id number] [place] [address] [place] Calcium.ionized adjusted to pH 7.4 (Bld) [Moles/Vol] 1.31 mmol/L High 1.08-1.30 [facility] Comment on above: Order Comment: Speci men Type: BLOOD SPECIMENOrdering Facility: [facility] Address: [address] [place] [address] Performed By: #### 1 995-0 ####[facility] [id number] [place] [address] [place] Cancer Ag27-29 SerPl-aCncon 02-24-2024 Cancer Ag 27-29 Qn 12.7 [arb'U]/mL Normal <38.6 C [facility] Comment on above: Order Comment: Speci men Type: BLOOD SPECIMENOrdering Facility: [facility] Address: [address] [place] [address] Result Comment: The CA27.29 test was performed using the Siemens Cartesianaur XP chemiluminometric immunoassay method. Results obtained with different assay methods or kits cannot be used interchangeably. Performed By: #### 1 7842-6 ####[facility] LABCLIA [id number] [place] [address] [place] Comprehensive metabolic 2000 panelon 02-24-2024 Albumin [Mass/Vol] 4.4 g/dL Normal 3.9-4.9 [facility] Comment on above: Order Comment: Speci men Type: BLOOD SPECIMENOrdering Facility: [facility] Address: [address] [place] [address] Performed By: #### 2 4323-8 ####[facility] LABCLIA [id number] [place] [address] ALP [Catalytic activity/Vol] 97 U/L Normal 34-123 [facility] Comment on above: Order Comment: Speci men Type: BLOOD SPECIMENOrdering Facility: [facility] Address: [address] [place] [address] Performed By: #### 2 4323-8 ####[facility] LABCLIA [id number] [place] [address] ALT [Catalytic activity/Vol] 12 U/L Normal 7-38 [facility] Comment on above: Order Comment: Speci men Type: BLOOD SPECIMENOrdering Facility: [facility] Address: [address] [place] [address] Performed By: #### 2 4323-8 ####[facility] LABIA [id number] [place] [address] Anion gap [Moles/Vol] 12 mmol/L Normal 9-18 [facility] Comment on above: Order Comment: Speci men Type: BLOOD SPECIMENOrdering Facility: [facility] Address: [address] [place] [address] Performed By: #### 2 4323-8 ####[facility] LABCLIA [id number] [place] [address] AST [Catalytic activity/Vol] 18 U/L Normal 13-35 [facility] Comment on above: Order Comment: Speci men Type: BLOOD SPECIMENOrdering Facility: [facility] Address: [address] [place] [address] Performed By: #### 2 4323-8 ####[facility] LABCLIA [id number] [place] [address] Bilirubin [Mass/Vol] 0.3 mg/dL Normal 0.2-1.3 [facility] Comment on above: Order Comment: Speci men Type: BLOOD SPECIMENOrdering Facility: [facility] Address: [address] [place] [address] Performed By: #### 2 4323-8 ####[facility] LABCLIA [id number] [place] [address] Calcium [Mass/Vol] 11.0 mg/dL High 8.5-10.2 [facility] Comment on above: Order Comment: Speci men Type: BLOOD SPECIMENOrdering Facility: [facility] Address: [address] [place] [address] Performed By: #### 2 4323-8 ####[facility] LABCLIA [id number] [place] [address] Chloride [Moles/Vol] 102 mmol/L Normal 97-105 [facility] Comment on above: Order Comment: Speci men Type: BLOOD SPECIMENOrdering Facility: [facility] Address: [address] [place] [address] Performed By: #### 2 4323-8 ####[facility] LABCLIA [id number] [place] [address] CO2 [Moles/Vol] 28 mmol/L Normal 22-30 [facility] Comment on above: Order Comment: Speci men Type: BLOOD SPECIMENOrdering Facility: [facility] Address: [address] [place] [address] Performed By: #### 2 4323-8 ####[facility] LABCLIA [id number] [place] [address] Creatinine [Mass/Vol] 1.67 mg/dL High 0.58-0.96 [facility] Comment on above: Order Comment: Speci men Type: BLOOD SPECIMENOrdering Facility: [facility] Address: [address] [place] [address] Performed By: #### 2 4323-8 ####[facility] LABCLIA [id number] [place] [address] Creatinine and Glomerular filtration rate.predicted panel (S/P/Bld) 31 mL/min/1.73m??? Low >=60 [facility] Comment on above: Order Comment: Speci men Type: BLOOD SPECIMENOrdering Facility: [facility] Address: [address] [place] [address] Result Comment: Sugar mated Glomerular Filtration Rate [...] actual GFR. Performed By: #### 2 4323-8 ####[facility] LABCLIA [id number] [place] [address] Glucose [Mass/Vol] 187 mg/dL High 74-99 [facility] Comment on above: Order Comment: Speci men Type: BLOOD SPECIMENOrdering Facility: [facility] Address: [address] [place] [address] Result Comment: The [place] Diabetes Association (ADA) provides guidance for cutoff [...] Standards of Medical Care in Diabetes 2016, [place] [employer]. Diabetes Care. 2016.39(Suppl 1). Performed By: #### 2 4323-8 ####[facility] LABCLIA [id number] [place] [address] Potassium [Moles/Vol] 4.8 mmol/L Normal 3.7-5.1 [facility] Comment on above: Order Comment: Speci men Type: BLOOD SPECIMENOrdering Facility: [facility] Address: [address] [place] [address] Performed By: #### 2 4323-8 ####[facility] LABCLIA [id number] [place] [address] Protein [Mass/Vol] 8.1 g/dL High 6.3-8.0 [facility] Comment on above: Order Comment: Speci men Type: BLOOD SPECIMENOrdering Facility: [facility] Address: [address] [place] [address] Performed By: #### 2 4323-8 ####[facility] LABCLIA [id number] [place] [address] Sodium [Moles/Vol] 142 mmol/L Normal 136-144 [facility] Comment on above: Order Comment: Speci men Type: BLOOD SPECIMENOrdering Facility: [facility] Address: [address] [place] [address] Performed By: #### 2 4323-8 ####[facility] LABCLIA [id number] [place] [address] Urea nitrogen [Mass/Vol] 38 mg/dL High 7-21 [facility] Comment on above: Order Comment: Speci men Type: BLOOD SPECIMENOrdering Facility: [facility] Address: [address] [place] [address] Performed By: #### 2 4323-8 ####[facility] LABCLIA [id number] [place] [address] IMMUNOFIXATION SCREEN, SERUM on 02-24-2024 INTERPRETATION (MPA) Atypical restricted bands are present in the IgM and kappa regions. Consistent with IgM kappa monoclonal gammopathy. Normal [facility] Comment on above: Order Comment: Speci men Type: BLOOD SPECIMENOrdering Facility: [facility] Address: [address] [place] [address] Performed By: #### I FESC ####[facility] LABCLIA [id number] [place] [address] [place] MPA RESULT M protein is present. Abnormal No M protein is identified. [facility] Comment on above: Order Comment: Speci men Type: BLOOD SPECIMENOrdering Facility: [facility] Address: [address] [place] [address] Performed By: #### I FES ####[facility] LABCLIA [id number] [place] [address] [place] STAFF REVIEW (MPA) Reviewed by Dr. Maria G Keane MD Normal [facility] Comment on above: Order Comment: Speci men Type: BLOOD SPECIMENOrdering Facility: [facility] Address: [address] [place] [address] Performed By: #### I FESC ####[facility] LABCLIA [id number] [place] [address] [place] IMMUNOGLOBULINS,IGG,IGA,IGMo n 02-24-2024 IgA [Mass/Vol] 302 mg/dL Normal 70-400 [facility] Comment on above: Order Comment: Speci men Type: BLOOD SPECIMENOrdering Facility: [facility] Address: [address] [place] [address] Performed By: #### S ERIMM ####[facility] LABCLIA [id number] [place] [address] [place] IgG [Mass/Vol] 796 mg/dL Normal 700-1600 [facility] Comment on above: Order Comment: Speci men Type: BLOOD SPECIMENOrdering Facility: [facility] Address: [address] [place] [address] Performed By: #### S ERIMM ####[facility] LABCLIA [id number] [place] [address] [place] IgM [Mass/Vol] 426 mg/dL High 40-230 [facility] Comment on above: Order Comment: Speci men Type: BLOOD SPECIMENOrdering Facility: [facility] Address: [address] [place] [address] Performed By: #### S ERIMM ####[facility] LABCLIA [id number] [place] [address] [place] KAPPA/DIAZ,FREE,SERon 2023 Immunoglobulin light chains.kappa.free (S) [Mass/Vol] 54.7 mg/L High 3.3-19.4 [facility] Comment on above: Order Comment: Speci men Type: BLOOD SPECIMENOrdering Facility: [facility] Address: [address] [place] [address] Result Comment: Rare ly, increased serum free light chains levels may not be detected or accurately quantified due to prozone phenomenon or in high viscosity samples using this immunoturbidimetric assay. Correlation with other laboratory results and clinical findings is recommended. The Cable Free Light Chain was performed using the Binding Site Optilite immunoturbidimetric method. Result obtained with different assay methods or kits cannot be used interchangeably. Performed By: #### K LFRS ####[facility] LABCLIA [id number] [place] [address] [place] Immunoglobulin light chains.kappa/Immunoglo bulin light chains.lambda (S) [Mass ratio] 2.31 High 0.26-1.65 [facility] Comment on above: Order Comment: Speci men Type: BLOOD SPECIMENOrdering Facility: [facility] Address: [address] [place] [address] Performed By: #### K LFRS ####[facility] LABCLIA [id number] [place] [address] [place] Immunoglobulin light chains.lambda.free [Mass/Vol] 23.7 mg/L Normal 5.7-26.3 [facility] Comment on above: Order Comment: Speci men Type: BLOOD SPECIMENOrdering Facility: [facility] Address: [address] [place] [address] Result Comment: Rare ly, increased serum free light chains levels may not be detected or accurately quantified due to prozone phenomenon or in high viscosity samples using this immunoturbidimetric assay. Correlation with other laboratory results and clinical findings is recommended. The Lambda Free Light Chain was performed using the Binding Site Optilite immunoturbidimetric method. Result obtained with different assay methods or kits cannot be used interchangeably. Performed By: #### K LFRS ####[facility] LABCLIA [id number] [place] [address] [place] LACTATE DEHYDROGENASEOrdered By: Denton Thomas on 02-24-2024 LDH [Catalytic activity/Vol] 209 U/L 135 - 214 U/L [facility] LDH SerPl-cCncon 02-24-2024 LDH [Catalytic activity/Vol] 209 U/L Normal 135-214 [facility] Comment on above: Order Comment: Speci men Type: BLOOD SPECIMENOrdering Facility: [facility] Address: [address] [place] [address] Performed By: #### 3 084-1, 2777-1, 2532-0 ####[facility] LABCLIA [id number] [place] [address] LDH [Catalytic activity/Vol] Ordered By: Dentno Thomas on 02-24-2024 Interpretation and review of laboratory results Normal [facility] PHOSPHORUS INORGANICon 02-23 Phosphate [Mass/Vol] 2.7 mg/dL 2.7 - 4 .8 mg/dL [facility] PROTEIN ELECTROPHORESIS SERU M (P)on 02-24-2024 Albumin [Mass/Vol] 3.98 g/dL Normal 3.43-5.41 [facility] Comment on above: Order Comment: Speci men Type: BLOOD SPECIMENOrdering Facility: [facility] Address: [address] [place] [address] Performed By: #### L [id number] ####[facility] LABIA [id number] [place] [address] [place] Alpha 1 globulin Elph [Mass/Vol] 0.42 g/dL Normal 0.18-0.43 [facility] Comment on above: Order Comment: Speci men Type: BLOOD SPECIMENOrdering Facility: [facility] Address: [address] [place] [address] Performed By: #### L [id number] ####[facility] LABIA [id number] [place] [address] [place] Alpha 2 globulin Elph [Mass/Vol] 1.05 g/dL High 0.42-0.98 [facility] Comment on above: Order Comment: Speci men Type: BLOOD SPECIMENOrdering Facility: [facility] Address: [address] [place] [address] Performed By: #### L [id number] ####[facility] LABIA [id number] [place] [address] [place] Beta globulin Elph [Mass/Vol] 1.18 g/dL High 0.61-1.17 [facility] Comment on above: Order Comment: Speci men Type: BLOOD SPECIMENOrdering Facility: [facility] Address: [address] [place] [address] Performed By: #### L [id number] ####[facility] LABIA [id number] [place] [address] [place] Gamma globulin Elph [Mass/Vol] 0.67 g/dL Normal 0.53-1.51 [facility] Comment on above: Order Comment: Speci men Type: BLOOD SPECIMENOrdering Facility: [facility] Address: [address] [place] [address] Performed By: #### L [id number] ####[facility] LABCLIA [id number] [address] [place] INTERPRETATION COMMENT FOR PROTEIN ELECTROPHORESIS Normal [facility] Comment on above: Order Comment: Speci men Type: BLOOD SPECIMENOrdering Facility: [facility] Address: [address] [place] [address] Result Comment: See separate immunofixation report for characterization of monoclonal gammopathy. M protein co-migrates with normal beta fraction. Quantitation of the M protein will overestimate the amount of M protein present. Performed By: #### L [id number] ####[facility] LABCLIA [id number] [address] [place] M SPIKE CONCENTRATION 2 0.18 g/dL High <=0.00 [facility] Comment on above: Order Comment: Speci men Type: BLOOD SPECIMENOrdering Facility: [facility] Address: [address] [place] [address] Performed By: #### L [id number] ####[facility] LABCLIA [id number] [address] [place] M-PROTEIN LOCATION Beta Fraction 1 Normal C [facility] Comment on above: Order Comment: Speci men Type: BLOOD SPECIMENOrdering Facility: [facility] Address: [address] [place] [address] Performed By: #### L [id number] ####[facility] LABCLIA [id number] [address] [place] M-PROTEIN LOCATION 2 Gamma Fraction 1 Normal [facility] Comment on above: Order Comment: Speci men Type: BLOOD SPECIMENOrdering Facility: [facility] Address: [address] [place] [address] Performed By: #### L [id number] ####[facility] [id number] [place] [address] [place] Protein Fractions [Interp] An M protein is identified on protein electrophoresis. Abnormal No definitive M protein is identified on protein electrophor esis. [facility] Comment on above: Order Comment: Speci men Type: BLOOD SPECIMENOrdering Facility: [facility] Address: [address] [place] [address] Performed By: #### L [id number] ####[facility] [id number] [place] [address] [place] Protein.monoclonal Elph [Mass/Vol] 0.53 g/dL High <=0.00 [facility] Comment on above: Order Comment: Speci men Type: BLOOD SPECIMENOrdering Facility: [facility] Address: [address] [place] [address] Performed By: #### L [id number] ####[facility] [id number] [place] [address] [place] SPE STAFF REVIEW Reviewed by Dr. Maria G Keane MD [facility] Comment on above: Order Comment: Speci men Type: BLOOD SPECIMENOrdering Facility: [facility] Address: [address] [place] [address] Performed By: #### L [id number] ####[facility] LABIA [id number] [place] [id number] [place] Phosphate SerPl-mCncon 02-23 Phosphate [Mass/Vol] 2.7 mg/dL Normal 2.7-4.8 [facility] Comment on above: Order Comment: Speci men Type: BLOOD SPECIMENOrdering Facility: [facility] Address: [address] [place] [address] Performed By: #### 3 084-1, 2777-1, 2532-0 ####[facility] LABCLIA [id number] [place] [address] Phosphate [Mass/Vol]on 02-23 Interpretation and review of laboratory results Normal [facility] Prot SerPl-ncon 02-24-2024 Protein [Mass/Vol] 7.3 g/dL Normal 6.3-8.0 [facility] Comment on above: Order Comment: Speci men Type: BLOOD SPECIMEN [facility]ing [facility] Address: [address] [place] [address] Performed By: #### 1 952-1, 2885-2 #### [facility] LAB CLIA [id number] [address] [place] [address] [place] URIC ACIDon 02-24-2024 Urate [Mass/Vol] 9.7 mg/dL High 2.5 - 6.6 mg/dL [facility] Urate [facility] Urate [Mass/Vol] 9.7 mg/dL High 2.5-6.6 [facility] Comment on above: Order Comment: Speci men Type: BLOOD SPECIMENOrdering Facility: [facility] Address: [address] [place] [address] Performed By: #### 3 084-1, 2777-1, 2532-0 ####[facility] LABCLIA [id number] [place] [address] Urate [Mass/Vol]on Interpretation and review of laboratory results Abnormal [facility] Office Visiton 02-19-2024 Follow-up visit [id number] Wayne Barros 1945 F Date Provider Department Center 02/19/2024 GISSELL WANG KASHIF Marie Family History Problem Relation Age of Onset Coronary artery disease Mother Coronary artery disease Father Coronary artery disease Sister Coronary artery disease Brother Family Status - Relation Status Age at Mother Father Sister Brother Level of Service:26321 [place] OFFICE/OUTPATIENT ESTABLISHED MOD MDM 30 MIN Normal [facility] CNPNon 02-10-2024 STEPHANIEN Telephone (HEMASA) ----- ANDREW BARROS ([id number]) 1945 F Date Time Provider Department 02/10/24 CLEMENTE SRIVASTAVA During your visit today, we recorded the following information about you: Clemente Srivastava RN 02/10/2024 2:43 PM Signed Pt seen by [facility] accounting professor, (unsure of whom), yesterday. Labs resulted high calcium and high protein. Recommended to see Dr Perry for further workup of cancer. Pt daughter transferred to [facility] to schedule. Lisa: please obtain records/nephrology office visit [place]: SHAYY; pt scheduled 02/24/24 for follow up to discuss [facility]/11/2024 9:38 AM Signed Records scanned. Allergies As of Date: 02/10/2024 Noted Allergy Reaction DPOXOUU-PHE-RWA REDUCTASE INHIBIT*01/21/2018 16 - Unknown Comments: Other reaction(s): AOF Date Reviewed: 11/25/2023 Reviewed by: Nadine Josue MA - Fully Assessed Reason for Visit: Patient Update [1234] Appointment [186] Prescriptions as of 02/11/2024 - anastrozole (ARIMIDEX) 1 mg tablet TAKE [...] - potassium chloride (K-TAB) 10 mEq tablet - omeprazole (PRILOSEC) 40 mg capsule Take [...] once daily. Problem List As Of Date 02/10/2024 Noted Resolved Malignant neoplasm of upper-outer quadrant of l*06/12/2018 Other specified menopausal and perimenopausal d*04/20/2021 Hypercalcemia [E83.52] 04/29/2023 Stage 3 chronic kidney disease, unspecified whe*05/05/2023 Encounter Status:Closed by CLEMENTE SRIVASTAVA on 02/11/24 Normal [facility] Albumin [Mass/volume] in Ser um or Plasmaon 02-03-2024 Albumin [Mass/Vol] 3.6 g/dL 2.9-4.4 [facility] Casts typing in urine sedime nt by light microscopyon 02-03-2024 Casts LM Nom (Urine sed) NONE SEEN #/LPF NONE SEEN [facility] Erythrocyte distribution wid th Auto (RBC) [Ratio]on 02-03-2024 Erythrocyte distribution width (RBC) [Ratio] 12.8 % 11.0-15.0 [facility] Estimated glomerular filtrat ion rate (GFR) non- Americanon 02-03-2024 GFR/1.73 sq M.predicted among non-blacks MDRD (S/P/Bld) [Vol rate/Area] 30 mL/min/{1.73_m2} >=60 [facility] Hematocrit Auto (Bld) [Volum e fraction]on 02-03-2024 Hematocrit (Bld) [Volume fraction] 40.7 % 36.0-48.0 [facility] Hemoglobin [Mass/volume] in Bloodon 02-03-2024 Hemoglobin (Bld) [Mass/Vol] 13.4 g/dL 12.0-16.0 [facility] IgA [Mass/volume] in Serum o r Plasmaon 02-03-2024 IgA [Mass/Vol] 286 mg/dL 64-422 [facility] IgG [Mass/volume] in Serum o r Plasmaon 02-03-2024 IgG [Mass/Vol] 815 mg/dL [phone] [facility] IgM [Mass/volume] in Serum o r Plasmaon 02-03-2024 IgM [Mass/Vol] 425 mg/dL 26-217 [facility] Immunofixation for Urineon 0 02-03-2024 Interpretation Immunofixation (U) [Interp] Comment: . [facility] Comment on above: Presence of monoclon al protein is unclear at this time. Suggestrepeat in 3 to 6 months if clinically indicated.Performed at: [facility] [address] [id number] Director: Yrn Maher PhD, Phone: [phone] Immunoglobulin light chains. kappa.free [Mass/volume] in Serumon 02-03-2024 Immunoglobulin light chains.kappa.free (S) [Mass/Vol] 49.6 mg/L 3.3-19.4 [facility] Immunoglobulin light chains. kappa.free/Immunoglobulin light chains.lambda.free [Saji 02-03-2024 Immunoglobulin light chains.kappa.free/Immu noglobulin light chains.lambda.free (S) [Mass ratio] 2.07 0.26-1.65 [facility] Comment on above: Performed at: [facility] [address] [id number] Director: Yrn Maher PhD, Phone: [phone] Immunoglobulin light chains. lambda.free [Mass/volume] in Serum or Plasmaon 02-03-2024 Immunoglobulin light chains.lambda.free [Mass/Vol] 24.0 mg/L 5.7-26.3 [facility] Iron binding capacity [Mass/ volume] in Serum or Plasmaon 02-03-2024 Iron binding capacity [Mass/Vol] 269.0 ug/dL 250.0-450.0 [facility] Iron saturation [Mass Fracti on] in Serum or Plasmaon 02-03-2024 Iron saturation [Mass fraction] 28.3 % [facility] Laboratory - Chemistry and C hemistry - challengeon 02-03-2024 Bilirubin Ql (U) Negative NEGATIVE [facility] Glucose (U) [Mass/Vol] Negative NEGATIVE [facility] Ketones Ql (U) Negative NEGATIVE [facility] pH (U) 6.0 [pH] 5.0-9.0 [facility] Specific gravity (U) [Rel density] 1.025 1.005-1.025 [facility] Urobilinogen Qn (U) 0.2 {Sánchez'U}/dL 0.2-1.0 [facility] Albumin [Mass/Vol] 3.5 g/dL 3.4-5.0 [facility] Calcium [Mass/Vol] 10.3 mg/dL 8.5-10.1 [facility] Chloride [Moles/Vol] 99 mmol/L 98-107 [facility] CO2 [Moles/Vol] 28.3 mmol/L 21.0-32.0 [facility] Cobalamin (Vitamin B12) [Mass/Vol] 376.0 pg/mL 193.0-986.0 [facility] Creatinine [Mass/Vol] 1.64 mg/dL 0.55-1.02 [facility] Ferritin [Mass/Vol] 102.0 ng/mL 8.0-252.0 [facility] GFR/1.73 sq M.predicted MDRD (S/P/Bld) [Vol rate/Area] 37 mL/min/{1.73_m2} >=60 [facility] Glucose [Mass/Vol] 152 mg/dL 74-106 [facility] Iron [Mass/Vol] 76.0 ug/dL 50.0-170.0 [facility] Magnesium [Mass/Vol] 1.8 mg/dL 1.8-2.4 [facility] Potassium [Moles/Vol] 4.0 mmol/L 3.5-5.1 [facility] Protein [Mass/Vol] 0.5 g/dL Not Observed [facility] Sodium [Moles/Vol] 138 mmol/L 136-145 [facility] Urate [Mass/Vol] 8.5 mg/dL 2.6-6.0 [facility] Urea nitrogen [Mass/Vol] 35.0 mg/dL 7.0-18.0 [facility] Urea nitrogen/Creatinine [Mass ratio] 21.3 mg/mg [facility] Laboratory - Specimen inform ationon 02-03-2024 Appearance (U) CLEAR CLEAR [facility] Color (U) LT. YELLOW YELLOW [facility] Laboratory - Urinalysison Leukocyte esterase Test strip Ql (U) MODERATE NEGATIVE [facility] Nitrite Ql (U) Negative NEGATIVE [facility] Protein (U) [Mass/Vol] 190.1 mg/dL <=11.9 [facility] Protein Ql (U) >=300 mg/dL NEG/TRACE [facility] Leukocytes [#/volume] correc chetna for nucleated erythrocytes in Blood by Automated counon 02-03-2024 WBC corrected for nucl RBC Auto (Bld) [#/Vol] 10.3 10 3/uL 4.0-11.0 [facility] MCH Auto (RBC) [Entitic mass ]on 02-03-2024 MCH (RBC) [Entitic mass] 30.0 pg 26.7-34.0 [facility] MCHC Auto (RBC) [Mass/Vol]on 02-03-2024 MCHC (RBC) [Mass/Vol] 32.9 g/dL 29.9-35.2 [facility] MCV Auto (RBC) [Entitic vol] on 02-03-2024 MCV (RBC) [Entitic vol] 91.1 fL 81.0-99.0 [facility] Mucus LM Ql (Urine sed)on Mucus Ql (Urine sed) NONE SEEN NONE SEEN [facility] No Panel Informationon 02-02 Urine Bacteria LARGE #/HPF NONE SEEN [facility] Urine Occult Blood TRACE-I NEGATIVE [facility] Urine Other Crystals None Seen #/HPF None Seen [facility] Urine Random Creatinine 81.44 mg/dL 20.00-300.0 0 [facility] Urine RBC 2-5 #/HPF 0-2 [facility] Urine Squamous Epithelial Cells FEW #/LPF NONE/RARE [facility] Urine WBC 20-50 #/HPF NONE SEEN [facility] 25-Hydroxy Vitamin D Total 78.2 ng/mL [facility] Comment on above: <20 ng/mL Vit D defi cient20-<30 ng/mL Vit D dmkvkdfzsxdy63-277 ng/mL Vit D sufficient>100 ng/mL Potential Toxicity Folate 29.10 ng/mL 8.60-58.90 [facility] Parathyroid Hormone (Intact) 33 pg/mL 15-65 [facility] Comment on above: Performed at: [facility] [facility] [place] [id number] Director: Yrn Maher PhD, Phone: [phone] Phosphorus Level 3.8 mg/dL 2.6-4.7 [facility] Protein Electrophoresis Note Comment . [facility] Comment on above: Protein electrophore sis scan will follow via computer,mail, or school curriculum developer delivery. Platelet mean volume Auto (B ld) [Entitic vol]on 02-03-2024 Platelet mean volume (Bld) [Entitic vol] 10.9 fL 9.5-13.5 [facility] Platelets Auto (Bld) [#/Vol] on 02-03-2024 Platelets (Bld) [#/Vol] 275 10 3/uL 150-450 [facility] Protein [Mass/volume] in Ser um or Plasmaon 02-03-2024 Protein [Mass/Vol] 7.0 g/dL 6.0-8.5 [facility] RBC Auto (Bld) [#/Vol]on RBC (Bld) [#/Vol] 4.47 10 6/uL 4.20-5.40 [facility] Serum globulin measurement ( mass/volume)on 02-03-2024 Globulin (S) [Mass/Vol] 3.4 g/dL 2.2-3.9 [facility] Serum or plasma albumin/glob ulin mass ratioon 02-03-2024 Albumin/Globulin [Mass ratio] 1.1 {ratio} 0.7-1.7 [facility] Serum or plasma alpha 1 glob ulin measurement by electrophoresis (mass/volume)on 02-03-2024 Alpha 1 globulin Elph [Mass/Vol] 0.3 g/dL 0.0-0.4 [facility] Serum or plasma alpha 2 glob ulin measurement by electrophoresis (mass/volume)on 02-03-2024 Alpha 2 globulin Elph [Mass/Vol] 1.0 g/dL 0.4-1.0 [facility] Serum or plasma anion gap de terminationon 02-03-2024 Anion gap [Moles/Vol] 14.7 mmol/L Fi [facility] Serum or plasma beta globuli n measurement by electrophoresis (mass/volume)on 02-03-2024 Beta globulin Elph [Mass/Vol] 1.0 g/dL 0.7-1.3 [facility] Serum or plasma gamma globul in measurement by electrophoresis (mass/volume)on 02-03-2024 Gamma globulin Elph [Mass/Vol] 1.2 g/dL 0.4-1.8 [facility] Serum or plasma immunoelectr ophoresis interpretationon 02-03-2024 Interpretation IEP [Interp] Comment . [facility] Comment on above: Immunofixation shows IgM monoclonal protein with kappalight chain specificity. Urine protein/creatinine rat ioon 02-03-2024 Protein/Creatinine (U) [Ratio] 2.33 [facility] CBC W Auto Differential pane l (Bld)on 11-25-2023 Basophils (Bld) [#/Vol] 0.06 10*3/uL Normal <0.11 [facility] Comment on above: Order Comment: Speci men Type: BLOOD SPECIMENOrdering Facility: [facility] Address: [address] [place] [address] Performed By: #### 5 7021-8 ####[facility] LABCLIA [id number] [place] [address] Basophils/100 WBC (Bld) 0.6 % Normal [facility] Comment on above: Order Comment: Speci men Type: BLOOD SPECIMENOrdering Facility: [facility] Address: [address] [place] [address] Performed By: #### 5 7021-8 ####[facility] LABCLIA [id number] [place] [address] Differential cell count method Nom (Bld) Auto Normal [facility] Comment on above: Order Comment: Speci men Type: BLOOD SPECIMENOrdering Facility: [facility] Address: [address] [place] [address] Performed By: #### 5 7021-8 ####[facility] LABCLIA [id number] [place] [address] Eosinophils (Bld) [#/Vol] 0.17 10*3/uL Normal <0.46 [facility] Comment on above: Order Comment: Speci men Type: BLOOD SPECIMENOrdering Facility: [facility] Address: [address] [place] [address] Performed By: #### 5 7021-8 ####[facility] LABCLIA [id number] [place] [address] Eosinophils/100 WBC (Bld) 1.7 % Normal [facility] Comment on above: Order Comment: Speci men Type: BLOOD SPECIMENOrdering Facility: [facility] Address: [address] [place] [address] Performed By: #### 5 7021-8 ####[facility] LABCLIA [id number] [place] [address] Erythrocyte distribution width (RBC) [Ratio] 13.5 % Normal 11.5-15.0 [facility] Comment on above: Order Comment: Speci men Type: BLOOD SPECIMENOrdering Facility: [facility] Address: [address] [place] [address] Performed By: #### 5 7021-8 ####[facility] LABCLIA [id number] [place] [address] Hematocrit (Bld) [Volume fraction] 37.2 % Normal 36.0-46.0 [facility] Comment on above: Order Comment: Speci men Type: BLOOD SPECIMENOrdering Facility: [facility] Address: [address] [place] [address] Performed By: #### 5 7021-8 ####[facility] LABCLIA [id number] [place] [address] Hemoglobin (Bld) [Mass/Vol] 12.0 g/dL Normal 11.5-15.5 [facility] Comment on above: Order Comment: Speci men Type: BLOOD SPECIMENOrdering Facility: [facility] Address: [address] [place] [address] Performed By: #### 5 7021-8 ####[facility] LABIA [id number] [place] [address] Immature granulocytes (Bld) [#/Vol] 0.04 10*3/uL Normal <0.10 [facility] Comment on above: Order Comment: Speci men Type: BLOOD SPECIMENOrdering Facility: [facility] Address: [address] [place] [address] Performed By: #### 5 7021-8 ####[facility] LABIA [id number] [place] [address] Immature granulocytes/100 WBC (Bld) 0.4 % Normal [facility] Comment on above: Order Comment: Speci men Type: BLOOD SPECIMENOrdering Facility: [facility] Address: [address] [place] [address] Performed By: #### 5 7021-8 ####[facility] LABIA [id number] [place] [address] Lymphocytes (Bld) [#/Vol] 1.17 10*3/uL Normal 1.00-4.00 [facility] Comment on above: Order Comment: Speci men Type: BLOOD SPECIMENOrdering Facility: [facility] Address: [address] [place] [address] Performed By: #### 5 7021-8 ####[facility] LABCLIA [id number] [place] [address] Lymphocytes/100 WBC (Bld) 11.5 % Normal [facility] Comment on above: Order Comment: Speci men Type: BLOOD SPECIMENOrdering Facility: [facility] Address: [address] [place] [address] Performed By: #### 5 7021-8 ####[facility] LABCLIA [id number] [place] [address] MCH (RBC) [Entitic mass] 30.1 pg Normal 26.0-34.0 [facility] Comment on above: Order Comment: Speci men Type: BLOOD SPECIMENOrdering Facility: [facility] Address: [address] [place] [address] Performed By: #### 5 7021-8 ####[facility] LABIA [id number] [place] [address] MCHC (RBC) [Mass/Vol] 32.3 g/dL Normal 30.5-36.0 [facility] Comment on above: Order Comment: Speci men Type: BLOOD SPECIMENOrdering Facility: [facility] Address: [address] [place] [address] Performed By: #### 5 7021-8 ####[facility] LABCLIA [id number] [place] [address] MCV (RBC) [Entitic vol] 93.2 fL Normal 80.0-100.0 [facility] Comment on above: Order Comment: Speci men Type: BLOOD SPECIMENOrdering Facility: [facility] Address: [address] [place] [address] Performed By: #### 5 7021-8 ####[facility] LABIA [id number] [place] [address] Monocytes (Bld) [#/Vol] 0.88 10*3/uL High <0.87 [facility] Comment on above: Order Comment: Speci men Type: BLOOD SPECIMENOrdering Facility: [facility] Address: [address] [place] [address] Performed By: #### 5 7021-8 ####[facility] LABCLIA [id number] [place] [address] Monocytes/100 WBC (Bld) 8.7 % Normal [facility] Comment on above: Order Comment: Speci men Type: BLOOD SPECIMENOrdering Facility: [facility] Address: [address] [place] [address] Performed By: #### 5 7021-8 ####[facility] LABCLIA [id number] [place] [address] Neutrophils (Bld) [#/Vol] 7.81 10*3/uL High 1.45-7.50 [facility] [facility] Comment on above: Order Comment: Speci men Type: BLOOD SPECIMENOrdering Facility: [facility] Address: [address] [place] [address] Performed By: #### 5 7021-8 ####[facility] LABCLIA [id number] [place] [address] Neutrophils/100 WBC (Bld) 77.1 % Normal [facility] Comment on above: Order Comment: Speci men Type: BLOOD SPECIMENOrdering Facility: [facility] Address: [address] [place] [address] Performed By: #### 5 7021-8 ####[facility] LABCLIA [id number] [place] [address] Nucleated RBC (Bld) [#/Vol] 10*3/uL Normal <0.01 [facility] Comment on above: Order Comment: Speci men Type: BLOOD SPECIMENOrdering Facility: [facility] Address: [address] [place] [address] Performed By: #### 5 7021-8 ####[facility] LABCLIA [id number] [place] [address] Nucleated RBC/100 WBC (Bld) [Ratio] 0.0 /100 WBC Normal [facility] Comment on above: Order Comment: Speci men Type: BLOOD SPECIMENOrdering Facility: [facility] Address: [address] [place] [address] Performed By: #### 5 7021-8 ####[facility] LABCLIA [id number] [place] [address] Platelet mean volume (Bld) [Entitic vol] 10.8 fL Normal 9.0-12.7 [facility] Comment on above: Order Comment: Speci men Type: BLOOD SPECIMENOrdering Facility: [facility] Address: [address] [place] [address] Performed By: #### 5 7021-8 ####[facility] LABCLIA [id number] [place] [address] Platelets (Bld) [#/Vol] 268 10*3/uL Normal 150-400 [facility] Comment on above: Order Comment: Speci men Type: BLOOD SPECIMENOrdering Facility: [facility] Address: [address] [place] [address] Performed By: #### 5 7021-8 ####[facility] LABCLIA [id number] [place] [address] RBC (Bld) [#/Vol] 3.99 10*6/uL Normal 3.90-5.20 [facility] Comment on above: Order Comment: Speci men Type: BLOOD SPECIMENOrdering Facility: [facility] Address: [address] [place] [address] Performed By: #### 5 7021-8 ####[facility] LABCLIA [id number] [place] [address] WBC (Bld) [#/Vol] 10.13 10*3/uL Normal 3.70-11.00 [facility] Comment on above: Order Comment: Speci men Type: BLOOD SPECIMENOrdering Facility: [facility] Address: [address] [place] [address] Performed By: #### 5 7021-8 ####[facility] LABCLIA [id number] [place] [address] CNOVSPon 11-25-2023 CNOVSP Visit (SP) Office ([place]) ----- ANDREW BARROS ([id number]) 1945 F Date Time Provider Department 11/25/23 2:15 PM SANDEEP LENZ During your visit today, we recorded the following information about you: Temperature Pulse Respiration Blood pressure 97.5 degrees 70/minute 18/minute 144/63 Weight Height 63.9 kg 1.626 m Sandeep Lenz MD 11/25/2023 7:36 PM Signed NAME: Rosa Barrosence [facility] NO.: [id number] DATE OF SERVICE: November 25, 2023 (Yoanna) Some elements in this clinic note that are critical to medical decision making have been carefully reviewed and included from a prior clinic note dated: August 19, 2023 (Yoanna) Referring Provider: Eduardo Sharpe Additional Clinicians involved in Andrewpeter Barros's care: DIAGNOSIS: History of Breast Cancer [...] Repeat Mammogram prior to return Stop Arimidex. __ HPI: CASE HISTORY: Reverse Chronological Order 08/28/2023 - Bilateral Mammogram Diagnostic category 2 Benign 05/02/2023 - Bone Scan - negative for osseous mets. 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 04/24/2021 - DEXA scan World Health Organization classification: Normal-low fracture risk. 01/04/2021 - Mammograms at [facility] Bi-Rads 2 benign. 09/26/2018 - Started [...] and to start on Vit-D + Calcium. __ REVIEW OF SYSTEMS Per HPI and otherwise negative by full review of organ systems. ____- ECOG PERFORMANCE STATUS: 0 PHYSICAL EXAMINATION: Vitals: BP 144/63 Pulse 70 Temp (Src) 97.5 (Temporal) Resp 18 Ht 5' 4.016 (1.63m) Wt 140 lb 14 oz (63.9k (more content not included)... Normal [facility] Calcium.ionized [Moles/Vol]o n 11-25-2023 Calcium.ionized (Bld) [Mass/Vol] 1.27 mmol/L Normal 1.08-1.30 [facility] Comment on above: Order Comment: Speci men Type: BLOOD SPECIMENOrdering Facility: [facility] Address: [address] [place] [address] Performed By: #### 1 995-0 ####[facility] LABIA [id number] [address] [place] Calcium.ionized adjusted to pH 7.4 (Bld) [Moles/Vol] 1.25 mmol/L Normal 1.08-1.30 [facility] Comment on above: Order Comment: Speci men Type: BLOOD SPECIMENOrdering Facility: [facility] Address: [address] [place] [address] Performed By: #### 1 995-0 ####[facility] LABIA [id number] [place] [address] [place] Cancer Ag15-3 SerPl-aCncon 0 11-25-2023 Cancer Ag 15-3 Qn 12.7 U/mL Normal <26.0 [facility] Comment on above: Order Comment: Speci men Type: BLOOD SPECIMENOrdering Facility: [facility] Address: [address] [place] [address] Result Comment: The CA 15-3 test methodology used is the Electrochemiluminescence Immunoassay by [employer]. Results obtained with different methods or kits cannot be used interchangeably. Performed By: #### 6 875-9, 2731-8 ####[facility] LABIA [id number] [place] [address] [place] Cancer Ag27-29 SerPl-aCncon 11-25-2023 Cancer Ag 27-29 Qn 18.5 [arb'U]/mL Normal <38.[address] [facility] Comment on above: Order Comment: Speci men Type: BLOOD SPECIMENOrdering Facility: [facility] Address: [address] [place] [address] Result Comment: The CA27.29 test was performed using the Siemens Centaur XP chemiluminometric immunoassay method. Results obtained with different assay methods or kits cannot be used interchangeably. Performed By: #### 1 7842-6 ####[facility] LABCLIA [id number] [facility] [id number] [id number] [place] Comprehensive metabolic 2000 panelon 11-25-2023 Albumin [Mass/Vol] 4.5 g/dL Normal 3.9-4.9 [facility] Comment on above: Order Comment: Speci men Type: BLOOD SPECIMENOrdering Facility: [facility] Address: [address] [place] [address] Performed By: #### 2 4323-8 ####[facility] LABCLIA [id number] [place] [address] ALP [Catalytic activity/Vol] 98 U/L Normal 34-123 [facility] Comment on above: Order Comment: Speci men Type: BLOOD SPECIMENOrdering Facility: [facility] Address: [address] [place] [address] Performed By: #### 2 4323-8 ####[facility] LABCLIA [id number] [place] [address] ALT [Catalytic activity/Vol] 11 U/L Normal 7-38 [facility] Comment on above: Order Comment: Speci men Type: BLOOD SPECIMENOrdering Facility: [facility] Address: [address] [place] [address] Performed By: #### 2 4323-8 ####[facility] LABCLIA [id number] [place] [address] Anion gap [Moles/Vol] 14 mmol/L Normal 9-18 [facility] Comment on above: Order Comment: Speci men Type: BLOOD SPECIMENOrdering Facility: [facility] Address: [address] [place] [address] Performed By: #### 2 4323-8 ####[facility] LABCLIA [id number] [place] [address] AST [Catalytic activity/Vol] 16 U/L Normal 13-35 [facility] Comment on above: Order Comment: Speci men Type: BLOOD SPECIMENOrdering Facility: [facility] Address: [address] [place] [address] Performed By: #### 2 4323-8 ####[facility] LABCLIA [id number] [place] [address] Bilirubin [Mass/Vol] 0.5 mg/dL Normal 0.2-1.3 [facility] Comment on above: Order Comment: Speci men Type: BLOOD SPECIMENOrdering Facility: [facility] Address: [address] [place] [address] Performed By: #### 2 4323-8 ####[facility] LABCLIA [id number] [place] [address] Calcium [Mass/Vol] 10.2 mg/dL Normal 8.5-10.2 [facility] Comment on above: Order Comment: Speci men Type: BLOOD SPECIMENOrdering Facility: [facility] Address: [address] [place] [address] Performed By: #### 2 4323-8 ####[facility] LABCLIA [id number] [place] [address] Chloride [Moles/Vol] 100 mmol/L Normal 97-105 [facility] Comment on above: Order Comment: Speci men Type: BLOOD SPECIMENOrdering Facility: [facility] Address: [address] [place] [address] Performed By: #### 2 4323-8 ####[facility] LABCLIA [id number] [place] [address] CO2 [Moles/Vol] 24 mmol/L Normal 22-30 [facility] Comment on above: Order Comment: Speci men Type: BLOOD SPECIMENOrdering Facility: [facility] Address: [address] [id number] Performed By: #### 2 4323-8 ####[facility] LABCLIA [id number] [place] [address] Creatinine [Mass/Vol] 1.66 mg/dL High 0.58-0.96 [facility] Comment on above: Order Comment: Speci men Type: BLOOD SPECIMENOrdering Facility: [facility] Address: [address] [place] [address] Performed By: #### 2 4323-8 ####[facility] LABCLIA [id number] [place] [address] Creatinine and Glomerular filtration rate.predicted panel (S/P/Bld) 31 mL/min/1.73m??? Low >=60 [facility] Comment on above: Order Comment: Speci men Type: BLOOD SPECIMENOrdering Facility: [facility] Address: [address] [place] [address] Result Comment: Sugar mated Glomerular Filtration Rate [...] actual GFR. Performed By: #### 2 4323-8 ####[facility] LABCLIA [id number] [place] [address] Glucose [Mass/Vol] 145 mg/dL High 74-99 [facility] Comment on above: Order Comment: Speci men Type: BLOOD SPECIMENOrdering Facility: [facility] Address: [address] [id number] Result Comment: The [place] Diabetes Association (ADA) provides guidance for cutoff [...] Standards of Medical Care in Diabetes 2016, [place] [employer] Association. Diabetes Care. 2016.39(Suppl 1). Performed By: #### 2 4323-8 ####[facility] LABCLIA [id number] [place] [address] Potassium [Moles/Vol] 4.5 mmol/L Normal 3.7-5.1 [facility] Comment on above: Order Comment: Speci men Type: BLOOD SPECIMENOrdering Facility: [facility] Address: [address] [place] [address] Performed By: #### 2 4323-8 ####[facility] LABCLIA [id number] [place] [address] Protein [Mass/Vol] 7.7 g/dL Normal 6.3-8.0 [facility] Comment on above: Order Comment: Speci men Type: BLOOD SPECIMENOrdering Facility: [facility] Address: [address] [place] [address] Performed By: #### 2 4323-8 ####[facility] LABCLIA [id number] [place] [address] Sodium [Moles/Vol] 138 mmol/L Normal 136-144 [facility] Comment on above: Order Comment: Speci men Type: BLOOD SPECIMENOrdering Facility: [facility] Address: [address] [place] [address] Performed By: #### 2 4323-8 ####[facility] LABCLIA [id number] [place] [address] Urea nitrogen [Mass/Vol] 32 mg/dL High 7-21 [facility] Comment on above: Order Comment: Speci men Type: BLOOD SPECIMENOrdering Facility: [facility] Address: [address] [place], [place] [address] Performed By: #### 2 4323-8 ####[facility] LABCLIA [id number] [place] [address] PTH RELATED PEPTIDEon 2023 PTH RELATED PEPTIDE 4.2 pmol/L High 0.0-3.4 [facility] Comment on above: Order Comment: Speci men Type: BLOOD SPECIMEN [facility] Address: [address] [place], [place] [id number] Result Comment: INTE RPRETIVE INFORMATION: Parathyroid Hormone-Related Peptide This test was developed and its performance characteristics determined by [facility]. It has not been cleared or approved by the [place] Food and Drug Administration. This test was performed in a CLIA certified laboratory and is intended for clinical purposes. Performed By: [facility] [address] [place] [address] Justice: Mark Fernandez MD, PhD [place] Number: [id number] Performed By: #### 1 952-1, 2885-2 #### [facility] LAB CLIA [id number] [address] [place], [place] [address] [address] [address] [place] P[facility] Parathyrin.intact [Mass/Vol] 43 pg/mL Normal 15-65 [facility] Comment on above: Order Comment: Speci men Type: BLOOD SPECIMENOrdering Facility: [facility] Address: [address] [place], [place] [address] Performed By: #### 6 875-9, 2731-8 ####[facility] LABCLIA [id number] [facility] [address] [address] [place] 11-21-2023 36 US sent to [facility] Normal [facility] 11-12-2023 36 Pt calling back want ing to know what to do Normal [facility] 11-07-2023 36 10/30/2023: MD Odette Parker MA [...] this morning. Any recommendations? Please advise. Thanks. [facility] Ophthalmic OCT panelon 10-31 [facility] Right Eye Images reviewed and comparison [...] Poor scan left eye (OS)> [facility] Study observation (narrative) [facility] Orders Onlyon 10-31-2023 Orders Only [id number] Wayne Barros A 1945 Date Provider Department Center 10/31/2023 [facility] Family History Problem Relation Age of Onset Coronary artery disease Mother Coronary artery disease Father Coronary artery disease Sister Coronary artery disease Brother Family Status - Relation Status Age at Mother Father Sister Brother [facility] US Eye+Orbit - bilateralon 0 10-31-2023 Diagnosis: Cataract both eyes (OU) Testing Indication: Performed for preop measurements in the determination of an intraocular lens (IOL) for both eyes (OU) Test Reliability: Good quality both eyes (OU) Interpretation: Good measurements for intraocular lens (IOL) calculation purposes. Calculation made for both eyes (OU). [facility] Study observation (narrative) [facility] Office Visiton 10-16-2023 Follow-up visit [id number] Wayne Barros A 1945 Date Provider Department Center 10/16/2023 Kan-GISSELL [facility] Family History Problem Relation Age of Onset Coronary artery disease Mother Coronary artery disease Father Coronary artery disease Sister Coronary artery disease Brother Family Status - Relation Status Age at Mother Father Sister Brother Level of Service:51502 NC OFFICE/OUTPATIENT ESTABLISHED MOD MDM 30 MIN Normal [facility] CBC W Auto Differential pane l (Bld)on 08-19-2023 Basophils (Bld) [#/Vol] 0.06 10*3/uL Normal <0.11 [facility] Comment on above: Order Comment: Speci men Type: BLOOD SPECIMENOrdering Facility: [facility] Address: [address] [place] [address] Performed By: #### 5 7021-8 ####[facility] LABCLIA [id number] [place] [address] Basophils/100 WBC (Bld) 0.6 % Normal [facility] Comment on above: Order Comment: Speci men Type: BLOOD SPECIMENOrdering Facility: [facility] Address: [address] [place] [address] Performed By: #### 5 7021-8 ####[facility] LABCLIA [id number] [place] [address] Differential cell count method Nom (Bld) Auto Normal [facility] Comment on above: Order Comment: Speci men Type: BLOOD SPECIMENOrdering Facility: [facility] Address: [address] [place] [address] Performed By: #### 5 7021-8 ####[facility] LABCLIA [id number] [place] [address] Eosinophils (Bld) [#/Vol] 0.16 10*3/uL Normal <0.46 [facility] Comment on above: Order Comment: Speci men Type: BLOOD SPECIMENOrdering Facility: [facility] Address: [address] [place] [address] Performed By: #### 5 7021-8 ####[facility] LABCLIA [id number] [place] [address] Eosinophils/100 WBC (Bld) 1.6 % Normal [facility] Comment on above: Order Comment: Speci men Type: BLOOD SPECIMENOrdering Facility: [facility] Address: [address] [place] [address] Performed By: #### 5 7021-8 ####[facility] LABCLIA [id number] [place] [address] Erythrocyte distribution width (RBC) [Ratio] 12.4 % Normal 11.5-15.0 [facility] Comment on above: Order Comment: Speci men Type: BLOOD SPECIMENOrdering Facility: [facility] Address: [address] [place] [address] Performed By: #### 5 7021-8 ####[facility] LABCLIA [id number] [place] [address] Hematocrit (Bld) [Volume fraction] 39.6 % Normal 36.0-46.0 [facility] Comment on above: Order Comment: Speci men Type: BLOOD SPECIMENOrdering Facility: [facility] Address: [address] [place] [address] Performed By: #### 5 7021-8 ####[facility] LABCLIA [id number] [place] [address] Hemoglobin (Bld) [Mass/Vol] 13.0 g/dL Normal 11.5-15.5 [facility] Comment on above: Order Comment: Speci men Type: BLOOD SPECIMENOrdering Facility: [facility] Address: [address] [place] [address] Performed By: #### 5 7021-8 ####[facility] LABCLIA [id number] [place] [address] Immature granulocytes (Bld) [#/Vol] 0.03 10*3/uL Normal <0.10 [facility] Comment on above: Order Comment: Speci men Type: BLOOD SPECIMENOrdering Facility: [facility] Address: [address] [place] [address] Performed By: #### 5 7021-8 ####[facility] LABCLIA [id number] [place] [address] Immature granulocytes/100 WBC (Bld) 0.3 % Normal [facility] Comment on above: Order Comment: Speci men Type: BLOOD SPECIMENOrdering Facility: [facility] Address: [address] [place] [address] Performed By: #### 5 7021-8 ####[facility] LABCLIA [id number] [place] [address] Lymphocytes (Bld) [#/Vol] 1.62 10*3/uL Normal 1.00-4.00 [facility] Comment on above: Order Comment: Speci men Type: BLOOD SPECIMENOrdering Facility: [facility] Address: [address] [place] [address] Performed By: #### 5 7021-8 ####[facility] LABCLIA [id number] [place] [address] Lymphocytes/100 WBC (Bld) 16.2 % Normal [facility] Comment on above: Order Comment: Speci men Type: BLOOD SPECIMENOrdering Facility: [facility] Address: [address] [place] [address] Performed By: #### 5 7021-8 ####[facility] LABCLIA [id number] [place] [address] MCH (RBC) [Entitic mass] 30.9 pg Normal 26.0-34.0 [facility] Comment on above: Order Comment: Speci men Type: BLOOD SPECIMENOrdering Facility: [facility] Address: [address] [place] [address] Performed By: #### 5 7021-8 ####[facility] LABIA [id number] [place] [address] MCHC (RBC) [Mass/Vol] 32.8 g/dL Normal 30.5-36.0 [facility] Comment on above: Order Comment: Speci men Type: BLOOD SPECIMENOrdering Facility: [facility] Address: [address] [place] [address] Performed By: #### 5 7021-8 ####[facility] LABCLIA [id number] [place] [address] MCV (RBC) [Entitic vol] 94.1 fL Normal 80.0-100.0 [facility] Comment on above: Order Comment: Speci men Type: BLOOD SPECIMENOrdering Facility: [facility] Address: [address] [place] [address] Performed By: #### 5 7021-8 ####[facility] LABCLIA [id number] [place] [address] Monocytes (Bld) [#/Vol] 1.04 10*3/uL High <0.87 [facility] Comment on above: Order Comment: Speci men Type: BLOOD SPECIMENOrdering Facility: [facility] Address: [address] [place] [address] Performed By: #### 5 7021-8 ####[facility] LABCLIA [id number] [place] [address] Monocytes/100 WBC (Bld) 10.4 % Normal [facility] Comment on above: Order Comment: Speci men Type: BLOOD SPECIMENOrdering Facility: [facility] Address: [address] [place] [address] Performed By: #### 5 7021-8 ####[facility] LABCLIA [id number] [place] [address] Neutrophils (Bld) [#/Vol] 7.12 10*3/uL Normal 1.45-7.50 [facility] Comment on above: Order Comment: Speci men Type: BLOOD SPECIMENOrdering Facility: [facility] Address: [address] [place] [address] Performed By: #### 5 7021-8 ####[facility] LABCLIA [id number] [place] [address] Neutrophils/100 WBC (Bld) 70.9 % Normal [facility] Comment on above: Order Comment: Speci men Type: BLOOD SPECIMENOrdering Facility: [facility] Address: [address] [place] [address] Performed By: #### 5 7021-8 ####[facility] LABCLIA [id number] [place] [address] Nucleated RBC (Bld) [#/Vol] 10*3/uL Normal <0.01 [facility] Comment on above: Order Comment: Speci men Type: BLOOD SPECIMENOrdering Facility: [facility] Address: [address] [place] [address] Performed By: #### 5 7021-8 ####[facility] LABCLIA [id number] [place] [address] Nucleated RBC/100 WBC (Bld) [Ratio] 0.0 /100 WBC Normal [facility] Comment on above: Order Comment: Speci men Type: BLOOD SPECIMENOrdering Facility: [facility] Address: [address] [place] [address] Performed By: #### 5 7021-8 ####[facility] LABCLIA [id number] [place] [address] Platelet mean volume (Bld) [Entitic vol] 10.7 fL Normal 9.0-12.7 [facility] Comment on above: Order Comment: Speci men Type: BLOOD SPECIMENOrdering Facility: [facility] Address: [address] [place] [address] Performed By: #### 5 7021-8 ####[facility] LABCLIA [id number] [place] [address] Platelets (Bld) [#/Vol] 252 10*3/uL Normal 150-400 [facility] Comment on above: Order Comment: Speci men Type: BLOOD SPECIMENOrdering Facility: [facility] Address: [address] [place] [address] Performed By: #### 5 7021-8 ####[facility] LABCLIA [id number] [place] [address] RBC (Bld) [#/Vol] 4.21 10*6/uL Normal 3.90-5.20 [facility] Comment on above: Order Comment: Speci men Type: BLOOD SPECIMENOrdering Facility: [facility] Address: [address] [place] [address] Performed By: #### 5 7021-8 ####[facility] LABIA [id number] [place] [address] WBC (Bld) [#/Vol] 10.03 10*3/uL Normal 3.70-11.00 [facility] Comment on above: Order Comment: Speci men Type: BLOOD SPECIMENOrdering Facility: [facility] Address: [address] [place] [address] Performed By: #### 5 7021-8 ####[facility] LABIA [id number] [place] [address] CNOVSPon 08-19-2023 CNOVSP Visit (SP) Office ([place]) ----- ANDREW BARROS ([id number]) 1945 F Date Time Provider Department 08/19/23 1:00 PM SANDEEP LENZ During your visit today, we recorded the following information about you: Temperature Pulse Respiration Blood pressure 97.7 degrees 67/minute 16/minute 148/65 Weight Height 61.8 kg 1.626 m Sandeep Lenz MD 08/20/2023 7:07 AM Signed Sult nephrology NAME: Rosa Barrosence CLINIC NO.: [id number] DATE OF SERVICE: August 19, 2023 (Yoanna) Some elements in this clinic note that are critical to medical decision making have been carefully reviewed and included from a prior clinic note dated: May 20, 2023 (Yoanna) Referring Provider: Eduardo Sharpe Additional Clinicians involved [...] her care from her prior physician Dr. eHrman. She tells me that her from COVID-19 [...] start on Vit-D + Calcium. Mammograms at [facility] on 01/04/2021 Bi-Rads 2 benign. [...] comfortably. N (more content not included)... [facility] ([place]) ----- ANDREW BARROS ([id number]) 1945 F Date Time Provider Department 08/19/23 [...] As of Date: 08/19/2023 Noted Allergy Reaction [id number] REDUCTASE INHIBIT*01/21/2018 16 - Unknown Comments: Other [...] Status:Closed by CLEMENTE SRIVASTAVA on 08/19/23 Normal [facility] Calcium.ionized [Moles/Vol]o n 08-19-2023 Calcium.ionized (Bld) [Mass/Vol] 1.20 mmol/L Normal 1.08-1.30 [facility] Comment on above: Order Comment: Speci men Type: BLOOD SPECIMENOrdering Facility: [facility] Address: [address] [place], [place] [address] Performed By: #### 1 995-0 ####[facility] LABCLIA [id number] [place] [address] [place] Calcium.ionized adjusted to pH 7.4 (Bld) [Moles/Vol] 1.19 mmol/L Normal 1.08-1.30 [facility] Comment on above: Order Comment: Speci men Type: BLOOD SPECIMENOrdering Facility: [facility] Address: [address] [place] [address] Performed By: #### 1 995-0 ####[facility] LABCLIA [id number] [place] [address] [place] Comprehensive metabolic 2000 panelon 08-19-2023 Albumin [Mass/Vol] 4.4 g/dL Normal 3.9-4.9 [facility] Comment on above: Order Comment: Speci men Type: BLOOD SPECIMEN Ordering Facility: [facility] Address: [address] [place] [address] Performed By: #### 1 952-1, 2885-2 #### [facility] LAB CLIA [id number] [address] [place] [address] [place] ALP [Catalytic activity/Vol] 88 U/L Normal 34-123 [facility] Comment on above: Order Comment: Speci men Type: BLOOD SPECIMEN Ordering Facility: [facility] Address: [address] [place] [address] Performed By: #### 1 952-1, 2885-2 #### [facility] LAB CLIA [id number] [address] [place] [address] [place] ALT [Catalytic activity/Vol] 8 U/L Normal 7-38 [facility] Comment on above: Order Comment: Speci men Type: BLOOD SPECIMEN [facility]ing [facility]: [facility] Address: [address] [place] [address] Performed By: #### 1 952-1, 2885-2 #### [facility] LAB CLIA [id number] [address] [place] [address] [place] Anion gap [Moles/Vol] 11 mmol/L Normal 9-18 [facility] Comment on above: Order Comment: Speci men Type: BLOOD SPECIMEN Ordering Facility: [facility] Address: [address] [place], [place] [address] Performed By: #### 1 952-1, 288-2 #### [facility] LAB CLIA [id number] [address] [place], [place] [address] [place] AST [Catalytic activity/Vol] 13 U/L Normal 13-35 [facility] Comment on above: Order Comment: Speci men Type: BLOOD SPECIMEN [facility]ing Facility: [facility] Address: [address] [place] [address] Performed By: #### 1 952-1, 288-2 #### [facility] LAB CLIA [id number] [address] [place] [address] [place] Bilirubin [Mass/Vol] 0.3 mg/dL Normal 0.2-1.3 [facility] Comment on above: Order Comment: Speci men Type: BLOOD SPECIMEN [facility]ing Facility: [facility] Address: [address] [place] [address] Performed By: #### 1 952-, 288-2 #### [facility] LAB CLIA [id number] [address] [place] [address] [place] Calcium [Mass/Vol] 9.6 mg/dL Normal 8.5-10.2 [facility] Comment on above: Order Comment: Speci men Type: BLOOD SPECIMEN Ordering Facility: [facility] Address: [address] [place], [place] [address] Performed By: #### 1 952-1, 288-2 #### [facility] LAB CLIA [id number] [address] [place] [address] [place] Chloride [Moles/Vol] 98 mmol/L Normal 97-105 [facility] Comment on above: Order Comment: Speci men Type: BLOOD SPECIMEN [facility]ing [facility]: [facility] Address: [address] [place] [address] Performed By: #### 1 952-1, 2885-2 #### [facility] LAB CLIA [id number] [address] [place] [address] [place] CO2 [Moles/Vol] 30 mmol/L Normal 22-30 [facility] Comment on above: Order Comment: Speci men Type: BLOOD SPECIMEN [facility]ing [facility]: [facility] Address: [address] [place] [address] Performed By: #### 1 952-1, 2885-2 #### [facility] LAB CLIA [id number] [address] [place] [address] [place] Creatinine [Mass/Vol] 1.27 mg/dL High 0.58-0.96 [facility] Comment on above: Order Comment: Speci men Type: BLOOD SPECIMEN [facility]ing [facility]: [facility] Address: [address] [place] [address] Performed By: #### 1 952-1, 2885-2 #### [facility] LAB CLIA [id number] [address] [place] [address] [place] Creatinine and Glomerular filtration rate.predicted panel (S/P/Bld) 43 mL/min/1.73m??? Low >=60 [facility] Comment on above: Order Comment: Speci men Type: BLOOD SPECIMEN [facility]ing [facility]: [facility] Address: [address] [place] [address] Result Comment: Sugar mated Glomerular Filtration Rate [...] accurately reflect actual GFR. Performed By: #### 1 952-1, 2885-2 #### [facility] LAB CLIA [id number] [address] [place] [address] [place] Glucose [Mass/Vol] 94 mg/dL Normal 74-99 [facility] Comment on above: Order Comment: Speci men Type: BLOOD SPECIMEN [facility]ing [facility] Address: [address] [place] [address] Result Comment: The [place] [employer] (ADA) provides guidance for cutoff [...] Standards of Medical Care in Diabetes 2016, [place] [employer]. Diabetes Care. 2016.39(Suppl 1). Performed By: #### 1 952-, 2885-2 #### [facility] LAB CLIA [id number] [address] [place] [address] [place] Potassium [Moles/Vol] 3.7 mmol/L Normal 3.7-5.1 [facility] Comment on above: Order Comment: Anastacio bonilla Type: BLOOD SPECIMEN Ordering [facility]: [facility] Address: [address] [place], [place] [address] Performed By: #### 1 952-, 2885-2 #### [facility] LAB CLIA [id number] [address] [place] [address] [place] Protein [Mass/Vol] 7.3 g/dL Normal 6.3-8.0 [facility] Comment on above: Order Comment: Anastacio bonilla Type: BLOOD SPECIMEN Ordering [facility]: [facility] Address: [address] [place], [place] [address] Performed By: #### 1 952-, 2885-2 #### [facility] LAB CLIA [id number] [address] [place] [address] [place] Sodium [Moles/Vol] 139 mmol/L Normal 136-144 [facility] Comment on above: Order Comment: Speci men Type: BLOOD SPECIMEN [facility]ing [facility]: [facility] Address: [address] [place] [address] Performed By: #### 1 952-1, 2885-2 #### [facility] LAB CLIA [id number] [address] [place] [address] [place] Urea nitrogen [Mass/Vol] 28 mg/dL High 7-21 [facility] Comment on above: Order Comment: Speci men Type: BLOOD SPECIMEN Ordering [facility]: [facility] Address: [address] [place] [address] Performed By: #### 1 952-1, 2885-2 #### [facility] LAB CLIA [id number] [address] [place] [address] [place] CBC W Auto Differential pane l (Bld)on 07-02-2023 Basophils (Bld) [#/Vol] 0.06 10*3/uL Normal <0.11 [facility] Comment on above: Order Comment: Speci men Type: BLOOD SPECIMENOrdering Facility: [facility] Address: [address] [place] [address] Performed By: #### 5 7021-8 ####[facility] LABCLIA [id number] [place] [address] Basophils/100 WBC (Bld) 0.6 % Normal [facility] Comment on above: Order Comment: Speci men Type: BLOOD SPECIMENOrdering Facility: [facility] Address: [address] [place] [address] Performed By: #### 5 7021-8 ####[facility] LABCLIA [id number] [place] [address] Differential cell count method Nom (Bld) Auto Normal [facility] Comment on above: Order Comment: Speci men Type: BLOOD SPECIMENOrdering Facility: [facility] Address: [address] [place] [address] Performed By: #### 5 7021-8 ####[facility] LABCLIA [id number] [place] [address] Eosinophils (Bld) [#/Vol] 0.14 10*3/uL Normal <0.46 [facility] Comment on above: Order Comment: Speci men Type: BLOOD SPECIMENOrdering Facility: [facility] Address: [address] [place] [address] Performed By: #### 5 7021-8 ####[facility] LABCLIA [id number] [place] [address] Eosinophils/100 WBC (Bld) 1.5 % Normal [facility] Comment on above: Order Comment: Speci men Type: BLOOD SPECIMENOrdering Facility: [facility] Address: [address] [place] [address] Performed By: #### 5 7021-8 ####[facility] LABCLIA [id number] [place] [address] Erythrocyte distribution width (RBC) [Ratio] 12.5 % Normal 11.5-15.0 [facility] Comment on above: Order Comment: Speci men Type: BLOOD SPECIMENOrdering Facility: [facility] Address: [address] [place] [address] Performed By: #### 5 7021-8 ####[facility] LABCLIA [id number] [place] [address] Hematocrit (Bld) [Volume fraction] 40.6 % Normal 36.0-46.0 [facility] Comment on above: Order Comment: Speci men Type: BLOOD SPECIMENOrdering Facility: [facility] Address: [address] [place] [address] Performed By: #### 5 7021-8 ####[facility] LABCLIA [id number] [place] [address] Hemoglobin (Bld) [Mass/Vol] 13.1 g/dL Normal 11.5-15.5 [facility] Comment on above: Order Comment: Speci men Type: BLOOD SPECIMENOrdering Facility: [facility] Address: [address] [place] [address] Performed By: #### 5 7021-8 ####[facility] LABCLIA [id number] [place] [address] Immature granulocytes (Bld) [#/Vol] 0.03 10*3/uL Normal <0.10 [facility] Comment on above: Order Comment: Speci men Type: BLOOD SPECIMENOrdering Facility: [facility] Address: [address] [place] [address] Performed By: #### 5 7021-8 ####[facility] LABCLIA [id number] [place] [address] Immature granulocytes/100 WBC (Bld) 0.3 % Normal [facility] Comment on above: Order Comment: Speci men Type: BLOOD SPECIMENOrdering Facility: [facility] Address: [address] [place] [address] Performed By: #### 5 7021-8 ####[facility] LABCLIA [id number] [place] [address] Lymphocytes (Bld) [#/Vol] 1.44 10*3/uL Normal 1.00-4.00 [facility] Comment on above: Order Comment: Speci men Type: BLOOD SPECIMENOrdering Facility: [facility] Address: [address] [place] [address] Performed By: #### 5 7021-8 ####[facility] LABCLIA [id number] [place] [address] Lymphocytes/100 WBC (Bld) 15.2 % Normal [facility] Comment on above: Order Comment: Speci men Type: BLOOD SPECIMENOrdering Facility: [facility] Address: [address] [place] [address] Performed By: #### 5 7021-8 ####[facility] LABCLIA [id number] [place] [address] MCH (RBC) [Entitic mass] 31.2 pg Normal 26.0-34.0 [facility] Comment on above: Order Comment: Speci men Type: BLOOD SPECIMENOrdering Facility: [facility] Address: [address] [place] [address] Performed By: #### 5 7021-8 ####[facility] LABCLIA [id number] [place] [address] MCHC (RBC) [Mass/Vol] 32.3 g/dL Normal 30.5-36.0 [facility] Comment on above: Order Comment: Speci men Type: BLOOD SPECIMENOrdering Facility: [facility] Address: [address] [place] [address] Performed By: #### 5 7021-8 ####[facility] LABCLIA [id number] [place] [address] MCV (RBC) [Entitic vol] 96.7 fL Normal 80.0-100.0 [facility] Comment on above: Order Comment: Speci men Type: BLOOD SPECIMENOrdering Facility: [facility] Address: [address] [place] [address] Performed By: #### 5 7021-8 ####[facility] LABCLIA [id number] [place] [address] Monocytes (Bld) [#/Vol] 0.82 10*3/uL Normal <0.87 [facility] Comment on above: Order Comment: Speci men Type: BLOOD SPECIMENOrdering Facility: [facility] Address: [address] [place] [address] Performed By: #### 5 7021-8 ####[facility] LABCLIA [id number] [place] [address] Monocytes/100 WBC (Bld) 8.7 % Normal [facility] Comment on above: Order Comment: Speci men Type: BLOOD SPECIMENOrdering Facility: [facility] Address: [address] [place] [address] Performed By: #### 5 7021-8 ####[facility] LABCLIA [id number] [place] [address] Neutrophils (Bld) [#/Vol] 6.97 10*3/uL Normal 1.45-7.50 [facility] Comment on above: Order Comment: Speci men Type: BLOOD SPECIMENOrdering Facility: [facility] Address: [address] [place] [address] Performed By: #### 5 7021-8 ####[facility] LABCLIA [id number] [place] [address] Neutrophils/100 WBC (Bld) 73.7 % Normal [facility] Comment on above: Order Comment: Speci men Type: BLOOD SPECIMENOrdering Facility: [facility] Address: [address] [place] [address] Performed By: #### 5 7021-8 ####[facility] LABCLIA [id number] [place] [address] Nucleated RBC (Bld) [#/Vol] 10*3/uL Normal <0.01 [facility] Comment on above: Order Comment: Speci men Type: BLOOD SPECIMENOrdering Facility: [facility] Address: [address] [place] [address] Performed By: #### 5 7021-8 ####[facility] LABCLIA [id number] [place] [address] Nucleated RBC/100 WBC (Bld) [Ratio] 0.0 /100 WBC Normal [facility] Comment on above: Order Comment: Speci men Type: BLOOD SPECIMENOrdering Facility: [facility] Address: [address] [place] [address] Performed By: #### 5 7021-8 ####[facility] LABCLIA [id number] [place] [address] Platelet mean volume (Bld) [Entitic vol] 11.0 fL Normal 9.0-12.7 [facility] Comment on above: Order Comment: Speci men Type: BLOOD SPECIMENOrdering Facility: [facility] Address: [address] [place] [address] Performed By: #### 5 7021-8 ####[facility] LABCLIA [id number] [place] [address] Platelets (Bld) [#/Vol] 238 10*3/uL Normal 150-400 [facility] Comment on above: Order Comment: Speci men Type: BLOOD SPECIMENOrdering Facility: [facility] Address: [address] [place] [address] Performed By: #### 5 7021-8 ####[facility] LABIA [id number] [place] [address] RBC (Bld) [#/Vol] 4.20 10*6/uL Normal 3.90-5.20 [facility] Comment on above: Order Comment: Speci men Type: BLOOD SPECIMENOrdering Facility: [facility] Address: [address] [place] [address] Performed By: #### 5 7021-8 ####[facility] LABIA [id number] [place] [address] WBC (Bld) [#/Vol] 9.46 10*3/uL Normal 3.70-11.00 [facility] Comment on above: Order Comment: Speci men Type: BLOOD SPECIMENOrdering Facility: [facility] Address: [address] [place] [address] Performed By: #### 5 7021-8 ####[facility] LABIA [id number] [place] [address] Calcium.ionized [Moles/Vol]o n 07-02-2023 Calcium.ionized (Bld) [Mass/Vol] 1.23 mmol/L Normal 1.08-1.30 [facility] Comment on above: Order Comment: Speci men Type: BLOOD SPECIMENOrdering Facility: [facility] Address: [address] [place] [address] Performed By: #### 1 995-0 ####[facility] LABCLIA [id number] [place] [address] [place] Calcium.ionized adjusted to pH 7.4 (Bld) [Moles/Vol] 1.20 mmol/L Normal 1.08-1.30 [facility] Comment on above: Order Comment: Speci men Type: BLOOD SPECIMENOrdering Facility: [facility] Address: [address] [place] [address] Performed By: #### 1 995-0 ####[facility] LABCLIA [id number] [place] [address] [place] Comprehensive metabolic 2000 panelon 07-02-2023 Albumin [Mass/Vol] 4.5 g/dL Normal 3.9-4.9 [facility] Comment on above: Order Comment: Speci men Type: BLOOD SPECIMENOrdering Facility: [facility] Address: [address] [place] [address] Performed By: #### 2 4323-8 ####[facility] LABCLIA [id number] [place] [address] ALP [Catalytic activity/Vol] 89 U/L Normal 34-123 [facility] Comment on above: Order Comment: Speci men Type: BLOOD SPECIMENOrdering Facility: [facility] Address: [address] [place] [address] Performed By: #### 2 4323-8 ####[facility] LABCLIA [id number] [place] [address] ALT [Catalytic activity/Vol] 10 U/L Normal 7-38 [facility] Comment on above: Order Comment: Speci men Type: BLOOD SPECIMENOrdering Facility: [facility] Address: [address] [place] [address] Performed By: #### 2 4323-8 ####[facility] LABCLIA [id number] [place] [address] Anion gap [Moles/Vol] 15 mmol/L Normal 9-18 [facility] Comment on above: Order Comment: Speci men Type: BLOOD SPECIMENOrdering Facility: [facility] Address: [address] [place] [address] Performed By: #### 2 4323-8 ####[facility] LABCLIA [id number] [place] [address] AST [Catalytic activity/Vol] 14 U/L Normal 13-35 [facility] Comment on above: Order Comment: Speci men Type: BLOOD SPECIMENOrdering Facility: [facility] Address: [address] [place] [address] Performed By: #### 2 4323-8 ####[facility] LABCLIA [id number] [place] [address] Bilirubin [Mass/Vol] 0.4 mg/dL Normal 0.2-1.3 [facility] Comment on above: Order Comment: Speci men Type: BLOOD SPECIMENOrdering Facility: [facility] Address: [address] [place] [address] Performed By: #### 2 4323-8 ####[facility] LABCLIA [id number] [place] [address] Calcium [Mass/Vol] 9.9 mg/dL Normal 8.5-10.2 [facility] Comment on above: Order Comment: Speci men Type: BLOOD SPECIMENOrdering Facility: [facility] Address: [address] [place] [address] Performed By: #### 2 4323-8 ####[facility] LABCLIA [id number] [place] [address] Chloride [Moles/Vol] 99 mmol/L Normal 97-105 [facility] Comment on above: Order Comment: Speci men Type: BLOOD SPECIMENOrdering Facility: [facility] Address: [address] [place] [address] Performed By: #### 2 4323-8 ####[facility] LABCLIA [id number] [place] [address] CO2 [Moles/Vol] 28 mmol/L Normal 22-30 [facility] Comment on above: Order Comment: Speci men Type: BLOOD SPECIMENOrdering Facility: [facility] Address: [address] [place] [address] Performed By: #### 2 4323-8 ####[facility] LABCLIA [id number] [place] [address] Creatinine [Mass/Vol] 1.31 mg/dL High 0.58-0.96 [facility] Comment on above: Order Comment: Speci men Type: BLOOD SPECIMENOrdering Facility: [facility] Address: [address] [place] [address] Performed By: #### 2 4323-8 ####[facility] LABCLIA [id number] [place] [address] Creatinine and Glomerular filtration rate.predicted panel (S/P/Bld) 42 mL/min/1.73m??? Low >=60 [facility] Comment on above: Order Comment: Speci men Type: BLOOD SPECIMENOrdering Facility: [facility] Address: [address] [place] [address] Result Comment: Sugar mated Glomerular Filtration Rate [...] actual GFR. Performed By: #### 2 4323-8 ####[facility] LABCLIA [id number] [place] [address] Glucose [Mass/Vol] 183 mg/dL High 74-99 [facility] Comment on above: Order Comment: Speci men Type: BLOOD SPECIMENOrdering Facility: [facility] Address: [address] [place] [address] Result Comment: The [place] [employer] (ADA) provides guidance for cutoff [...] Standards of Medical Care in Diabetes 2016, [place] [employer]. Diabetes Care. 2016.39(Suppl 1). Performed By: #### 2 4323-8 ####[facility] LABCLIA [id number] [place] [place] [address] Potassium [Moles/Vol] 3.9 mmol/L Normal 3.7-5.1 [facility] Comment on above: Order Comment: Speci men Type: BLOOD SPECIMENOrdering Facility: [facility] Address: [address] [place] [address] Performed By: #### 2 4323-8 ####[facility] LABCLIA [id number] [place] [address] Protein [Mass/Vol] 7.2 g/dL Normal 6.3-8.0 [facility] Comment on above: Order Comment: Speci men Type: BLOOD SPECIMENOrdering Facility: [facility] Address: [address] [place] [address] Performed By: #### 2 4323-8 ####[facility] LABCLIA [id number] [place] [address] Sodium [Moles/Vol] 142 mmol/L Normal 136-144 [facility] Comment on above: Order Comment: Speci men Type: BLOOD SPECIMENOrdering Facility: [facility] Address: [address] [place] [address] Performed By: #### 2 4323-8 ####[facility] LABCLIA [id number] [place] [address] Urea nitrogen [Mass/Vol] 29 mg/dL High 7-21 [facility] Comment on above: Order Comment: Speci men Type: BLOOD SPECIMENOrdering Facility: [facility] Address: [address] [place], [place] [address] Performed By: #### 2 4323-8 ####[facility] LABCLIA [id number] [place] [address] CBC W Auto Differential pane l (Bld)on 05-21-2023 Basophils (Bld) [#/Vol] 0.07 10*3/uL <0.11 k/uL [facility] Basophils/100 WBC (Bld) 0.6 % [facility] Differential cell count method Nom (Bld) Auto [facility] Eosinophils (Bld) [#/Vol] 0.17 10*3/uL <0.46 k/uL [facility] Eosinophils/100 WBC (Bld) 1.6 % [facility] Erythrocyte distribution width (RBC) [Ratio] 12.8 % 11.5 - 15.0 % [facility] Hematocrit (Bld) [Volume fraction] 38.7 % 36.0 - 46.0 % [facility] Hemoglobin (Bld) [Mass/Vol] 13.0 g/dL 11.5 - 15.5 g/dL [facility] Immature granulocytes (Bld) [#/Vol] 0.04 10*3/uL <0.10 k/uL [facility] Immature granulocytes/100 WBC (Bld) 0.4 % [facility] Lymphocytes (Bld) [#/Vol] 1.74 10*3/uL 1.00 - 4.00 k/uL [facility] Lymphocytes/100 WBC (Bld) 16.0 % [facility] MCH (RBC) [Entitic mass] 31.7 pg 26.0 - 34.0 pg [facility] MCHC (RBC) [Mass/Vol] 33.6 g/dL 30.5 - 36.0 g/dL [facility] MCV (RBC) [Entitic vol] 94.4 fL 80.0 - 100.0 fL [facility] Monocytes (Bld) [#/Vol] 0.94 10*3/uL High <0.87 k/uL [facility] Monocytes/100 WBC (Bld) 8.6 % [facility] Neutrophils (Bld) [#/Vol] 7.94 10*3/uL High 1.45 - 7.50 k/uL [facility] Neutrophils/100 WBC (Bld) 72.8 % [facility] Nucleated RBC (Bld) [#/Vol] <0.01 k/uL [facility] Nucleated RBC/100 WBC (Bld) [Ratio] 0.0 /100 WBC [facility] Platelet mean volume (Bld) [Entitic vol] 12.1 fL 9.0 - 12.7 fL [facility] Platelets (Bld) [#/Vol] 293 10*3/uL 150 - 400 k/uL [facility] RBC (Bld) [#/Vol] 4.10 10*6/uL 3.90 - 5.2 0 m/uL [facility] WBC (Bld) [#/Vol] 10.90 10*3/uL 3.70 - 11.00 k/uL [facility] Comprehensive metabolic 2000 panelon 05-21-2023 Albumin [Mass/Vol] 4.6 g/dL 3.9 - 4.9 g/dL [facility] ALP [Catalytic activity/Vol] 96 U/L 34 - 123 U/L [facility] ALT [Catalytic activity/Vol] 13 U/L 7 - 38 U/L [facility] Anion gap [Moles/Vol] 13 mmol/L 9 - 18 mmol/L [facility] AST [Catalytic activity/Vol] 18 U/L 13 - 35 U/L [facility] Bilirubin [Mass/Vol] 0.3 mg/dL 0.2 - 1 .3 mg/dL [facility] Calcium [Mass/Vol] 10.0 mg/dL 8.5 - 10. 2 mg/dL [facility] Chloride [Moles/Vol] 101 mmol/L 97 - 10 5 mmol/L [facility] CO2 [Moles/Vol] 26 mmol/L 22 - 30 mmol/L [facility] Creatinine [Mass/Vol] 1.32 mg/dL High 0.58 - 0.96 mg/dL [facility] Estimated Glomerular Filtration Rate 41 mL/min/1.73m Low >=60 mL/min/1.73 m [facility] Glucose [Mass/Vol] 119 mg/dL High 74 - 99 mg/dL [facility] Potassium [Moles/Vol] 4.1 mmol/L 3.7 - 5.1 mmol/L [facility] Protein [Mass/Vol] 7.6 g/dL 6.3 - 8.0 g/dL [facility] Sodium [Moles/Vol] 140 mmol/L 136 - 144 mmol/L [facility] Urea nitrogen [Mass/Vol] 32 mg/dL High 7 - 21 mg/dL [facility] Calcium.ionized [Moles/Vol]o n 05-20-2023 Calcium.ionized (Bld) [Mass/Vol] 1.23 mmol/L 1.08 - 1.30 mmol/L [facility] Calcium.ionized adjusted to pH 7.4 (Bld) [Moles/Vol] 1.20 mmol/L 1.08 - 1.30 mmol/L [facility] CA 15-3 BLDon 05-01-2023 Cancer Ag 15-3 Qn 9.9 U/mL <26.0 U/mL [facility] [place] 27.29 BLOODon 05-01-2023 Cancer Ag 27-29 Qn 12.5 [arb'U]/mL <38.6 U/mL [facility] CBC W Auto Differential pane l (Bld)on 05-01-2023 Basophils (Bld) [#/Vol] 0.06 10*3/uL <0.11 k/uL [facility] Basophils/100 WBC (Bld) 0.6 % [facility] Differential cell count method Nom (Bld) Auto [facility] Eosinophils (Bld) [#/Vol] 0.18 10*3/uL <0.46 k/uL [facility] Eosinophils/100 WBC (Bld) 1.9 % [facility] Erythrocyte distribution width (RBC) [Ratio] 12.7 % 11.5 - 15.0 % [facility] Hematocrit (Bld) [Volume fraction] 36.4 % 36.0 - 46.0 % [facility] Hemoglobin (Bld) [Mass/Vol] 12.2 g/dL 11.5 - 15.5 g/dL [facility] Immature granulocytes (Bld) [#/Vol] 0.03 10*3/uL <0.10 k/uL [facility] Immature granulocytes/100 WBC (Bld) 0.3 % [facility] Lymphocytes (Bld) [#/Vol] 1.62 10*3/uL 1.00 - 4.00 k/uL [facility] Lymphocytes/100 WBC (Bld) 17.3 % [facility] MCH (RBC) [Entitic mass] 32.0 pg 26.0 - 34.0 pg [facility] MCHC (RBC) [Mass/Vol] 33.5 g/dL 30.5 - 36.0 g/dL [facility] MCV (RBC) [Entitic vol] 95.5 fL 80.0 - 100.0 fL [facility] Monocytes (Bld) [#/Vol] 0.99 10*3/uL High <0.87 k/uL [facility] Monocytes/100 WBC (Bld) 10.6 % [facility] Neutrophils (Bld) [#/Vol] 6.50 10*3/uL 1.45 - 7.50 k/uL [facility] Neutrophils/100 WBC (Bld) 69.3 % [facility] Nucleated RBC (Bld) [#/Vol] <0.01 k/uL [facility] Nucleated RBC/100 WBC (Bld) [Ratio] 0.0 /100 WBC [facility] Platelet mean volume (Bld) [Entitic vol] 11.9 fL 9.0 - 12.7 fL [facility] Platelets (Bld) [#/Vol] 252 10*3/uL 150 - 400 k/uL [facility] RBC (Bld) [#/Vol] 3.81 10*6/uL Low 3.90 - 5.2 0 m/uL [facility] WBC (Bld) [#/Vol] 9.38 10*3/uL 3.70 - 11.00 k/uL [facility] Comprehensive metabolic 2000 panelon 05-01-2023 Albumin [Mass/Vol] 4.3 g/dL 3.9 - 4.9 g/dL [facility] ALP [Catalytic activity/Vol] 93 U/L 34 - 123 U/L [facility] ALT [Catalytic activity/Vol] 14 U/L 7 - 38 U/L [facility] Anion gap [Moles/Vol] 14 mmol/L 9 - 18 mmol/L [facility] AST [Catalytic activity/Vol] 18 U/L 13 - 35 U/L [facility] Bilirubin [Mass/Vol] 0.3 mg/dL 0.2 - 1 .3 mg/dL [facility] Calcium [Mass/Vol] 10.6 mg/dL High 8.5 - 10. 2 mg/dL [facility] Chloride [Moles/Vol] 98 mmol/L 97 - 10 5 mmol/L [facility] CO2 [Moles/Vol] 26 mmol/L 22 - 30 mmol/L [facility] Creatinine [Mass/Vol] 1.38 mg/dL High 0.58 - 0.96 mg/dL [facility] Estimated Glomerular Filtration Rate 39 mL/min/1.73m Low >=60 mL/min/1.73 m [facility] Glucose [Mass/Vol] 207 mg/dL High 74 - 99 mg/dL [facility] Potassium [Moles/Vol] 3.7 mmol/L 3.7 - 5.1 mmol/L [facility] Protein [Mass/Vol] 6.9 g/dL 6.3 - 8.0 g/dL [facility] Sodium [Moles/Vol] 138 mmol/L 136 - 144 mmol/L [facility] Urea nitrogen [Mass/Vol] 39 mg/dL High 7 - 21 mg/dL [facility] Office Visiton 04-01-2023 Follow-up visit [id number] Wayne Barros 1945 F Date Provider Department Center 04/01/2023 GISSELL WANG KASHIF [facility] Family History Problem Relation Age of Onset Coronary artery disease Mother Coronary artery disease Father Coronary artery disease Sister Coronary artery disease Brother Family Status - Relation Status Age at Mother Father Sister Brother Level of Service:55408 NC OFFICE/OUTPATIENT ESTABLISHED MOD MDM 30-39 MIN Reason for Visit and Comments: Atrial Fibrillation [80] Hypertension [428232] Normal [facility] 36on 03-27-2023 36 Called and discussed . Thanks. [facility] BNPon 08-24-2022 Natriuretic peptide B (Bld) [Mass/Vol] 1296.0 pg/mL Normal <=1,800.0 [facility] Comment on above: Performed By: #### B KEYCASE ASSEMBLER, CMP ####[facility] [address] [place] [address]Dr. Swathi Reis CBC W MANUAL DIFFon 08-24-20 22 ATYPICAL LYMPH # Normal [facility] Comment on above: Performed By: #### C BCMAN ####[facility] [address] [place] [address]Dr. Swathi Reis ATYPICAL LYMPH % Normal [facility] Comment on above: Performed By: #### C BCMAN ####[facility] [address] [place] [address]Dr. Swathi Reis BAND # 0.1 103/ul Normal 0.0-0.3 [facility] Comment on above: Performed By: #### C BCMAN ####[facility] G[address]ren[address] [place] [address]Dr. Inessatracy Reis BAND % 1 % Normal 0-5 [facility] Comment on above: Performed By: #### C BCYUN ####[facility] Tijupqks[address] [place], [place] [address]Dr. Swathi Reis BASOM # 0.00 103/ul Normal 0.00-0.10 [facility] Comment on above: Performed By: #### C BCYUN ####[facility] [address] [place], [place] [address]Dr. Swathi Chato BASOM % 0.0 % Critically low 0.2-2.0 [facility] Comment on above: Performed By: #### C BCYUN ####[facility] [address] [place] [address]Dr. Swathi Reis BLAST # Normal [facility] Comment on above: Performed By: #### C BCYUN ####[facility] Q[address]su[address] [place] [address]Dr. Swathi Reis BLAST % Normal [facility] Comment on above: Performed By: #### C BCMAN ####[facility] Z[address]rv[address]rc[address] [place], [place] [address]Dr. Inessatracy Reis CORRECTED WBC Normal 4.0-11.0 [facility] Comment on above: Performed By: #### C BCYUN ####[facility] Engwhzsq[address] [place], [place] [address]Dr. Swathi Reis EOS # 0.39 103/ul Normal 0.00-0.70 [facility] Comment on above: Performed By: #### C NGA ####[facility] Fix[address] [place] [id number]. Swathi Reis EOS% 3.0 % Normal 0.9-7.0 [facility] Comment on above: Performed By: #### C NGA ####[facility] [address]kb[address] [place] [phone]. Swathi Reis HCT 32.6 % Critically low 36.0-48.0 [facility] Comment on above: Performed By: #### C NGA ####[facility] [address] [place] [phone]. Swathi Reis HGB 10.6 g/dl Critically low 12.0-16.0 [facility] Comment on above: Performed By: #### C NGA ####[facility] [address] [place] [address]Dr. Swathi Reis HYPOCHROMASIA SLIGHT Normal [facility] Comment on above: Performed By: #### C NGA ####[facility] [address] [place] [phone]. Swathi Reis LYMPHM # 1.04 103/ul Critically low 1.20-3.80 [facility] Comment on above: Performed By: #### C NGA ####[facility] [address]iy[address] [place] [id number]. Swathi Reis LYMPHM% 8.0 % Critically low 20.5-60.0 [facility] Comment on above: Performed By: #### C NGA ####[facility] X[address]txlmfud45[address] [place] [phone]. Swathi Reis MCH 29.2 pg Normal 26.7-34.0 [facility] Comment on above: Performed By: #### C NGA ####[facility] Egylrptjad[address] [place] [phone]. Swathi Reis MCHC 32.5 g/dl Normal 29.9-35.2 [facility] Comment on above: Performed By: #### C NGA ####[facility] Fvmggrrdxz9035 [place] [phone]. Swathi Reis MCV 89.8 fL Normal 81.0-99.0 [facility] Comment on above: Performed By: #### C NGA ####[facility] Cx[address]uycdua9[address] [place] [phone]. Swathi Reis METAMYELOCYTE # Normal [facility] Comment on above: Performed By: #### Kenney SYLVESTER ####[facility] [address]xbhxu[address] [place] [phone]. Swathi Reis METAMYELOCYTE % Normal [facility] Comment on above: Performed By: #### C NGA ####[facility] F[address]kbim[address] [place], [place] [address]Dr. Swathi Reis MONOM# 1.17 103/ul Critically high 0.30-0.80 [facility] Comment on above: Performed By: #### Kenney SYLVESTER ####[facility] [address] [place], [place] [address]Dr. Swathi Reis MONOM% 9.0 % Normal 1.7-12.0 [facility] Comment on above: Performed By: #### Kenney SYLVESTER ####[facility] Txwzsc[address]xwv[address] [place], [place] [address]Dr. Swathi Reis MPV 10.0 fL Normal 9.5-13.5 [facility] Comment on above: Performed By: #### Kenney SYLVESTER ####[facility] Xotrvvohsf87[address] [place] [phone]. Swathi Reis MYELOCYTE # Normal [facility] Comment on above: Performed By: #### Kenney SYLVESTER ####[facility] [address] [place], [place] [address]Dr. Swathi Reis MYELOCYTE % Normal [facility] Comment on above: Performed By: #### Kenney SYLVESTER ####[facility] Gnetwo[address] [place], [place] [address]Dr. Swathi Reis NRBC Normal [facility] Comment on above: Performed By: #### C NGA ####[facility] [address]ozp09[address] [place], [place] [address]Jf. Swathi Reis PLT 353 103/ul Normal 150-450 [facility] Comment on above: Performed By: #### C NGA ####[facility] Avrthp[address]qp26[address] [place], [place] [address]Cm. Swathi Reis RBC 3.63 106/ul Critically low 4.20-5.40 [facility] Comment on above: Performed By: #### C NGA ####[facility] Lkloqiwgla2704 [place], [place] [address]Qj. Swathi Reis RDW 13.6 % Normal 11.0-15.0 [facility] Comment on above: Performed By: #### C NGA ####[facility] J[address]kmafqkg8973 [place], [place] [address]Bd. Swathi Reis SEG # 10.27 103/ul Critically high 1.40-6.50 [facility] Comment on above: Performed By: #### C NGA ####[facility] Bzwiakecep6276 [place], [place] [address]Ry. Swathi Reis SEG % 79.0 % Critically high 43.0-75.0 [facility] Comment on above: Performed By: #### C NGA ####[facility] Wjjlx[address]xiz1546 [place], [place] [address]Of. Swathi Reis WBC 13.0 103/ul Critically high 4.0-11.0 [facility] Comment on above: Performed By: #### C NGA ####[facility] L[address]rmfwsq9136 [place], [place] [address]Oj. Swathi Reis DIGOXINon 08-24-2022 DIG 1.8 ng/mL Normal 0.9-2.0 [facility] Comment on above: Performed By: #### D IG ####[facility] [address]op[address] [place] [id number] Swathi Reis PROF 14(COMP METB)on 022 Albumin [Mass/Vol] 2.4 g/dL Critically low 3.4-5.0 [facility] Comment on above: Performed By: #### B KEYCASE ASSEMBLER, CMP ####[facility] Plteaayeid6[address] [place] [phone]. Swathi Reis Albumin/Globulin [Mass ratio] 0.5 {ratio} Normal [facility] Comment on above: Performed By: #### B KEYCASE ASSEMBLER, CMP ####[facility] Ifamdecrgi3847 [place] [phone]. Swathi Reis ALP [Catalytic activity/Vol] 93 U/L Normal 46-116 [facility] Comment on above: Performed By: #### B KEYCASE ASSEMBLER, CMP ####[facility] Kcemociopy54[address] [place] [phone]. Swathi Reis ALT [Catalytic activity/Vol] 8 U/L Critically low 14-59 [facility] Comment on above: Performed By: #### B KEYCASE ASSEMBLER, CMP ####[facility] Fgwlrqoapq9326 [place] [phone]. Swathi Reis Anion gap [Moles/Vol] 11.2 mmol/L Normal [facility] Comment on above: Performed By: #### B KEYCASE ASSEMBLER, CMP ####[facility] Foticoqjrq7073 [place] [phone]. Swathi Reis AST [Catalytic activity/Vol] 14 U/L Critically low 15-37 [facility] Comment on above: Performed By: #### B KEYCASE ASSEMBLER, CMP ####[facility] Sohvalybuf40[address] [place] [phone]. Swathi Reis Bilirubin [Mass/Vol] 0.4 mg/dL Normal 0.2-1.0 [facility] Comment on above: Performed By: #### B KEYCASE ASSEMBLER, CMP ####[facility] Kmggjnvvqk2565 [place] [phone]. Swathi Reis Calcium [Mass/Vol] 9.4 mg/dL Normal 8.5-10.1 [facility] Comment on above: Performed By: #### B KEYCASE ASSEMBLER, CMP ####[facility] Kbbzlbsmqu8527 [place] [phone]. Swathi Reis Chloride [Moles/Vol] 101 mmol/L Normal 98-107 [facility] Comment on above: Performed By: #### B KEYCASE ASSEMBLER, CMP ####[facility] Srwxzhrqka48[address] [place] [address]Dr. Inessatracy Chato CO2 [Moles/Vol] 31.0 mmol/L Normal 21.0-32.0 [facility] Comment on above: Performed By: #### B KEYCASE ASSEMBLER, CMP ####[facility] [address] [place], [place] [address]Dr. Swathi Reis Creatinine [Mass/Vol] 1.49 mg/dL Critically high 0.55-1.02 [facility] Comment on above: Performed By: #### B KEYCASE ASSEMBLER, CMP ####[facility] Whawtf[address]bl[address] [place], [place] [address]Dr. Swathi Reis EGFR-AF BAHRAINI 41 mL/min/1.73m2 Critically low >=60 [facility] Comment on above: Performed By: #### B KEYCASE ASSEMBLER, CMP ####[facility] Ttkvnylvbw[address] [place], [place] [address]Dr. Swathi Reis EGFR-NON AF BAHRAINI 34 mL/min/1.73m2 Critically low >=60 [facility] Comment on above: Performed By: #### B KEYCASE ASSEMBLER, CMP ####[facility] Nnpktvuhuu[address] [place], [place] [address]Dr. Swathi Reis Globulin (S) [Mass/Vol] 4.8 g/dL Normal [facility] Comment on above: Performed By: #### B KEYCASE ASSEMBLER, CMP ####[facility] Ap[address]fwtqxpd23[address] [place], [place] [address]Dr. Swathi Reis Glucose [Mass/Vol] 153 mg/dL Critically high 74-106 [facility] Comment on above: Performed By: #### B KEYCASE ASSEMBLER, CMP ####[facility] Rwykfxlrow[address] [place], [place] [address]Dr. Swathi Reis Potassium [Moles/Vol] 4.2 mmol/L Normal 3.5-5.1 [facility] Comment on above: Performed By: #### B KEYCASE ASSEMBLER, CMP ####[facility] Qceufshdny[address] [place], [place] [address]Dr. Swathi Reis Protein [Mass/Vol] 7.2 g/dL Normal 6.4-8.2 [facility] Comment on above: Performed By: #### B KEYCASE ASSEMBLER, CMP ####[facility] Qyqkuqfecx[address] [place], [place] [address]Dr. Swahti Reis Sodium [Moles/Vol] 139 mmol/L Normal 136-145 [facility] Comment on above: Performed By: #### B KEYCASE ASSEMBLER, CMP ####[facility] Vdarnnjhys[address] [place], [place] [address]Dr. Swathi Reis Urea nitrogen [Mass/Vol] 22.0 mg/dL Critically high 7.0-18.0 [facility] Comment on above: Performed By: #### B KEYCASE ASSEMBLER, CMP ####[facility] Igcjjejjzo[address] [place], [place] [address]Dr. Swathi Reis Urea nitrogen/Creatinine [Mass ratio] 14.8 mg/mg Normal [facility] Comment on above: Performed By: #### B KEYCASE ASSEMBLER, CMP ####[facility] Uggvmfjegd[address] [place], [place] [address]Dr. Swathi Reis BNPon 08-23-2022 Natriuretic peptide B (Bld) [Mass/Vol] 1755.0 pg/mL Normal <=1,800.0 [facility] Comment on above: Performed By: #### B KEYCASE ASSEMBLER, CMP ####[facility] Hznslccsuv[address] [place], [place] [address]Dr. Swathi Reis CBC AUTO DIFFon 08-23-2022 BASO # 0.1 103/ul Normal 0.0-0.1 [facility] Comment on above: Performed By: #### C BC ####[facility] Jyhuxjbeez[address] [place], [place] [address]Dr. Swathi Chato Basophils/100 WBC (Bld) 0.7 % Normal 0.2-2.0 [facility] Comment on above: Performed By: #### C BC ####[facility] Ycvrsyrkbz[address] [place], [place] [address]Dr. Swathi Chato EO # 0.2 103/ul Normal 0.0-0.7 [facility] Comment on above: Performed By: #### C BC ####[facility] Z[address]ym[address]xtgsy3[address] [place] [id number]. Swathi Reis Eosinophils/100 WBC (Bld) 2.2 % Normal 0.9-7.0 [facility] Comment on above: Performed By: #### C BC ####[facility] Yestkmvpxu8462 [place] [id number]. Swathi Reis Erythrocyte distribution width (RBC) [Ratio] 13.6 % Normal 11.0-15.0 [facility] Comment on above: Performed By: #### C BC ####[facility] O[address]uvxezfjz26[address] [place] [address]Dr. Swathi Reis Hematocrit (Bld) [Volume fraction] 33.1 % Critically low 36.0-48.0 [facility] Comment on above: Performed By: #### C BC ####[facility] Kmievbkhuk[address] [place], [place] [address]Dr. Swathi Reis Hemoglobin (Bld) [Mass/Vol] 10.6 g/dL Critically low 12.0-16.0 [facility] Comment on above: Performed By: #### C BC ####[facility] Setqxwlluv[address] [place], [place] [address]Dr. Swathi Reis IG # 0.12 10e3/ul Critically high 0.00-0.03 [facility] Comment on above: Performed By: #### C BC ####[facility] T[address]xpmyj[address] [place], [place] [address]Dr. Swathi Reis IG % 1.1 % Critically high 0.0-0.5 [facility] Comment on above: Performed By: #### C BC ####[facility] Jdtnsapcfp[address] [place], [place] [address]Dr. Swathi Reis LYMPH # 1.6 103/ul Normal 1.2-3.8 [facility] Comment on above: Performed By: #### C BC ####[facility] Ksmzgcsdcc[address] [place], [place] [address]Dr. Swathi Reis Lymphocytes/100 WBC (Bld) 14.6 % Critically low 20.5-60.0 [facility] [facility] Comment on above: Performed By: #### C BC ####[facility] [address]bafsuq[address] [place] [id number]. Swathi Reis MANUAL DIFF REQ NO Normal [facility] Comment on above: Performed By: #### C BC ####[facility] Wqekxzylgv4354 [place] [id number]. Swathi Reis MCH (RBC) [Entitic mass] 29.0 pg Normal 26.7-34.0 [facility] Comment on above: Performed By: #### C BC ####[facility] Tcwezjaqad4036 [place] [id number]. Swathi Reis MCHC (RBC) [Mass/Vol] 32.0 g/dL Normal 29.9-35.2 [facility] Comment on above: Performed By: #### C BC ####[facility] Ozytdxwgbf7[address] [place] [address]Dr. Swathi Reis MCV (RBC) [Entitic vol] 90.4 fL Normal 81.0-99.0 [facility] Comment on above: Performed By: #### C BC ####[facility] Tylxwxqnbz[address] [place], [place] [address]Dr. Swathi Reis MONO # 1.4 103/ul Critically high 0.3-0.8 [facility] Comment on above: Performed By: #### C BC ####[facility] Eyjplnsuih43[address] [place], [place] [address]Dr. Swathi Reis Monocytes/100 WBC (Bld) 12.8 % Critically high 1.7-12.0 [facility] Comment on above: Performed By: #### C BC ####[facility] Wnztgusdhg6714 [place] [id number]. Swathi Reis NEUT # 7.5 103/ul Critically high 1.4-6.5 [facility] Comment on above: Performed By: #### C BC ####[facility] Wuabjnelic23[address] [place] [address]Dr. Swathi Reis Neutrophils/100 WBC (Bld) 68.6 % Normal 43.0-75.0 [facility] Comment on above: Performed By: #### C BC ####[facility] Hhpxvqamxf4736 [place] [id number]. Swathi Reis Platelet mean volume (Bld) [Entitic vol] 10.3 fL Normal 9.5-13.5 [facility] Comment on above: Performed By: #### C BC ####[facility] Zoquzofrkf5233 [place] [phone]. Swathi Reis PLT 387 103/ul Normal 150-450 [facility] Comment on above: Performed By: #### C BC ####[facility] Bgmloxdmlh2198 [place], [place] [address]Th. Swathi Reis RBC 3.66 106/ul Critically low 4.20-5.40 [facility] Comment on above: Performed By: #### C BC ####[facility] Ymdacgdgxk3831 [place] [phone]. Swathi Reis WBC 11.0 103/ul Normal 4.0-11.0 [facility] Comment on above: Performed By: #### C BC ####[facility] Fwtufxvjcw4215 [place] [phone]. Swathi Reis DIGOXINon 08-23-2022 DIG 1.6 ng/mL Normal 0.9-2.0 [facility] Comment on above: Performed By: #### D IG ####[facility] Vxoepcwjps5[address] [place] [phone]. Swathi Reis POINT OF CARE GLUCOSEon Glucose [Mass/Vol] 167 mg/dL Critically high 74-106 [facility] Comment on above: Performed By: #### P OCGLUC ####[facility] Bxymqrjldo0959 [place] [phone]. Swathi Reis Glucose [Mass/Vol] 114 mg/dL Critically high 74-106 [facility] Comment on above: Performed By: #### P OCGLUC ####[facility] Besylkbvzb1952 [place] [phone]. Swathi Reis Glucose [Mass/Vol] 272 mg/dL Critically high 74-106 [facility] Comment on above: Performed By: #### P OCGLUC ####[facility] Qtkkmwbdhw4564 [place] [address]Dr. Swathi Reis PROF 14(COMP METB)on 022 Albumin [Mass/Vol] 2.4 g/dL Critically low 3.4-5.0 [facility] Comment on above: Performed By: #### B KEYCASE ASSEMBLER, CMP ####[facility] Biulqdwwtj924[address] [place], [place] [address]Dr. Swathi Reis Albumin/Globulin [Mass ratio] 0.5 {ratio} Normal [facility] Comment on above: Performed By: #### B KEYCASE ASSEMBLER, CMP ####[facility] Mqfzdnpzaa129[address] [place], [place] [address]Dr. Swathi Reis ALP [Catalytic activity/Vol] 104 U/L Normal 46-116 [facility] Comment on above: Performed By: #### B KEYCASE ASSEMBLER, CMP ####[facility] Wimcowqqtm8337[address] [place], [place] [address]Dr. Swathi Reis ALT [Catalytic activity/Vol] 7 U/L Critically low 14-59 [facility] Comment on above: Performed By: #### B KEYCASE ASSEMBLER, CMP ####[facility] Bzdntfnpqf259[address] [place], [place] [address]Dr. Swathi Reis Anion gap [Moles/Vol] 11.1 mmol/L Normal [facility] Comment on above: Performed By: #### B KEYCASE ASSEMBLER, CMP ####[facility] Eflfbvgogu661246 [address] [place], [place] [address]Dr. Swathi Reis AST [Catalytic activity/Vol] 19 U/L Normal 15-37 [facility] Comment on above: Performed By: #### B KEYCASE ASSEMBLER, CMP ####[facility] Bdeqzsknas006346 [address] [place], [place] [address]Dr. Swathi Reis Bilirubin [Mass/Vol] 0.4 mg/dL Normal 0.2-1.0 [facility] Comment on above: Performed By: #### B KEYCASE ASSEMBLER, CMP ####[facility] Hvzcjjkxac646346 [address] [place], [place] [address]Dr. Swathi Reis Calcium [Mass/Vol] 9.5 mg/dL Normal 8.5-10.1 [facility] Comment on above: Performed By: #### B KEYCASE ASSEMBLER, CMP ####[facility] Luexubdult850046 [address] [place], [place] [address]Dr. Swathi Reis Chloride [Moles/Vol] 101 mmol/L Normal 98-107 [facility] Comment on above: Performed By: #### B KEYCASE ASSEMBLER, CMP ####[facility] Oubezzpdtl236246 [address] [place], [place] [address]Dr. Swathi Reis CO2 [Moles/Vol] 30.7 mmol/L Normal 21.0-32.0 [facility] Comment on above: Performed By: #### B KEYCASE ASSEMBLER, CMP ####[facility] Rvbotbgfam412[address] [place], [place] [address]Dr. Swathi Reis Creatinine [Mass/Vol] 1.53 mg/dL Critically high 0.55-1.02 [facility] Comment on above: Performed By: #### B KEYCASE ASSEMBLER, CMP ####[facility] Wjcpwbylcs05[address] [place], [place] [address]Dr. Swathi Reis EGFR-AF BAHRAINI 40 mL/min/1.73m2 Critically low >=60 [facility] Comment on above: Performed By: #### B KEYCASE ASSEMBLER, CMP ####[facility] Ptsdbmqjct9210[address] [place], [place] [address]Dr. Swathi Reis EGFR-NON AF BAHRAINI 33 mL/min/1.73m2 Critically low >=60 [facility] Comment on above: Performed By: #### B KEYCASE ASSEMBLER, CMP ####[facility] Vfqqcntiwi733146 [address] [place], [place] [address]Dr. Swathi Reis Globulin (S) [Mass/Vol] 4.9 g/dL Normal [facility] Comment on above: Performed By: #### B KEYCASE ASSEMBLER, CMP ####[facility] Yjhhillrqd430046 [address] [place], [place] [address]Dr. Swathi Reis Glucose [Mass/Vol] 139 mg/dL Critically high 74-106 [facility] Comment on above: Performed By: #### B KEYCASE ASSEMBLER, CMP ####[facility] Injvfchjzk308[address] [place], [place] [address]Dr. Swathi Reis Potassium [Moles/Vol] 3.8 mmol/L Normal 3.5-5.1 [facility] Comment on above: Performed By: #### B KEYCASE ASSEMBLER, CMP ####[facility] Vvbndlodzy836246 [address] [place], [place] [address]Dr. Swathi Reis Protein [Mass/Vol] 7.3 g/dL Normal 6.4-8.2 [facility] Comment on above: Performed By: #### B KEYCASE ASSEMBLER, CMP ####[facility] Omhzmbxmxf074046 [address] [place], [place] [address]Dr. Swathi Reis Sodium [Moles/Vol] 139 mmol/L Normal 136-145 [facility] Comment on above: Performed By: #### B KEYCASE ASSEMBLER, CMP ####[facility] Pwzuubmswu4067[address] [place], [place] [address]Dr. Swathi Chato Urea nitrogen [Mass/Vol] 26.0 mg/dL Critically high 7.0-18.0 [facility] Comment on above: Performed By: #### B KEYCASE ASSEMBLER, CMP ####[facility] Lkjalzvaha9[address] [place], [place] [address]Dr. Swathi Reis Urea nitrogen/Creatinine [Mass ratio] 17.0 mg/mg Normal [facility] Comment on above: Performed By: #### B KEYCASE ASSEMBLER, CMP ####[facility] Lqyvihluof1632[address] [place], [place] [address]Dr. Swathi Chato BNPon 08-22-2022 Natriuretic peptide B (Bld) [Mass/Vol] 3439.0 pg/mL Critically high <=1,800.0 [facility] Comment on above: Performed By: #### C MP, BNP ####[facility] Loeflzmoty532[address] [place], [place] [address]Dr. Swathi Chato CBC AUTO DIFFon 08-22-2022 BASO # 0.1 103/ul Normal 0.0-0.1 [facility] Comment on above: Performed By: #### C BC ####[facility] Dnzpsuhfcf338[address] [place], [place] [address]Dr. Inessatracy Reis Basophils/100 WBC (Bld) 0.6 % Normal 0.2-2.0 [facility] Comment on above: Performed By: #### C BC ####[facility] Lcozqmojvw[address]99[address] [place], [place] [address]DrOtto Reis EO # 0.3 103/ul Normal 0.0-0.7 [facility] Comment on above: Performed By: #### C BC ####[facility] Euoqlehwso5488[address] [place], [place] [address]DrOtto Reis Eosinophils/100 WBC (Bld) 2.1 % Normal 0.9-7.0 [facility] Comment on above: Performed By: #### C BC ####[facility] Xbljnsppfm0239[address] [place], [place] [address]Dr. Swathi Reis Erythrocyte distribution width (RBC) [Ratio] 13.8 % Normal 11.0-15.0 [facility] Comment on above: Performed By: #### C BC ####[facility] Gcmsolrtrp625[address] [place], [place] [address]Dr. Swathi Reis Hematocrit (Bld) [Volume fraction] 31.9 % Critically low 36.0-48.0 [facility] Comment on above: Performed By: #### C BC ####[facility] Cupwudfmwb9447[address] [place], [place] [address]Dr. Swathi Reis Hemoglobin (Bld) [Mass/Vol] 10.2 g/dL Critically low 12.0-16.0 [facility] Comment on above: Performed By: #### C BC ####[facility] Ncxhmvvzwf34264[address] [place], [place] [address]DrOtto Reis IG # 0.10 10e3/ul Critically high 0.00-0.03 [facility] Comment on above: Performed By: #### C BC ####[facility] Qdspbeaitx7007[address] [place], [place] [address]DrOtto Reis IG % 0.8 % Critically high 0.0-0.5 [facility] Comment on above: Performed By: #### C BC ####[facility] Ziaznmohpt564[address] [place], [place] [address]Dr. Swathi Reis LYMPH # 1.2 103/ul Normal 1.2-3.8 [facility] Comment on above: Performed By: #### C BC ####[facility] Rdgeoshlqf7381 [place] [address]DrOtto Reis Lymphocytes/100 WBC (Bld) 9.6 % Critically low 20.5-60.0 [facility] Comment on above: Performed By: #### C BC ####[facility] Dnxmlljdnj2860 [place] [address]DrOtto Reis MANUAL DIFF REQ NO Normal [facility] Comment on above: Performed By: #### C BC ####[facility] Unktivssky1612 [place] [address]Dr. Swathi Reis MCH (RBC) [Entitic mass] 28.7 pg Normal 26.7-34.0 [facility] Comment on above: Performed By: #### C BC ####[facility] Qprtmtwezb337[address] [place], [place] [address]Dr. Swathi Reis MCHC (RBC) [Mass/Vol] 32.0 g/dL Normal 29.9-35.2 [facility] Comment on above: Performed By: #### C BC ####[facility] Oqndfcoocx67[address] [place], [place] [address]DrOtto Reis MCV (RBC) [Entitic vol] 89.9 fL Normal 81.0-99.0 [facility] Comment on above: Performed By: #### C BC ####[facility] Oijrhkvawc[address] [place], [place] [address]DrOtto Reis MONO # 1.0 103/ul Critically high 0.3-0.8 [facility] Comment on above: Performed By: #### C BC ####[facility] Ylcnuqbqbh1489[address] [place], [place] [address]DrOtto Reis Monocytes/100 WBC (Bld) 8.5 % Normal 1.7-12.0 [facility] Comment on above: Performed By: #### C BC ####[facility] Sqzvctzvor76[address] [place], [place] [address]DrOtto Reis NEUT # 9.6 103/ul Critically high 1.4-6.5 [facility] Comment on above: Performed By: #### C BC ####[facility] Macvjjsbzk217[address] [place] [address]Dr. Swathi Reis Neutrophils/100 WBC (Bld) 78.4 % Critically high 43.0-75.0 [facility] Comment on above: Performed By: #### C BC ####[facility] Spsowtmeqh9721 [place] [address]Dr. Swathi Reis Platelet mean volume (Bld) [Entitic vol] 10.4 fL Normal 9.5-13.5 [facility] Comment on above: Performed By: #### C BC ####[facility] Wutcwwlhfr9[address] [place] [address]Dr. Swathi Reis PLT 338 103/ul Normal 150-450 [facility] Comment on above: Performed By: #### C BC ####[facility] Pbccqdqbwm0426 [place] [address]Dr. Swathi Reis RBC 3.55 106/ul Critically low 4.20-5.40 [facility] Comment on above: Performed By: #### C BC ####[facility] Ryrdfstdzv510[address] [place], [place] [address]Dr. Swathi Reis WBC 12.2 103/ul Critically high 4.0-11.0 [facility] Comment on above: Performed By: #### C BC ####[facility] Tsdnsvltww2209 [place] [address]Dr. Swathi Reis DIGOXINon 08-22-2022 DIG 1.5 ng/mL Normal 0.9-2.0 [facility] Comment on above: Performed By: #### D IG ####[facility] Cchlvziauj[address] [place], [place] [address]Dr. Swathi Reis POINT OF CARE GLUCOSEon 07-26 Glucose [Mass/Vol] 222 mg/dL Critically high 74-106 [facility] Comment on above: Performed By: #### P OCGLUC ####[facility] Yvitukryes8326 [place] [address]Dr. Swathi Reis Glucose [Mass/Vol] 133 mg/dL Critically high 74-106 [facility] Comment on above: Performed By: #### P OCGLUC ####[facility] Igcmbacbqc0553 [place] [address]Dr. Swathi Reis Glucose [Mass/Vol] 299 mg/dL Critically high 74-106 [facility] Comment on above: Performed By: #### P OCGLUC ####[facility] Rutrvyiuzg778[address] [place], [place] [address]Dr. Swathi Reis Glucose [Mass/Vol] 151 mg/dL Critically high 74-106 [facility] Comment on above: Performed By: #### P OCGLUC ####[facility] Hjzyqafjse0429[address] [place], [place] [address]Dr. Inessatracy Reis PROF 14(COMP METB)on 022 Albumin [Mass/Vol] 2.4 g/dL Critically low 3.4-5.0 [facility] Comment on above: Performed By: #### C MP, BNP ####[facility] Wcaxbyjqpj1610[address] [place], [place] [address]Dr. Swathi Chato Albumin/Globulin [Mass ratio] 0.6 {ratio} Normal [facility] Comment on above: Performed By: #### C MP, BNP ####[facility] Oojcfifdpq2635[address] [place], [place] [address]Dr. Swathi Chato ALP [Catalytic activity/Vol] 98 U/L Normal 46-116 [facility] Comment on above: Performed By: #### C MP, BNP ####[facility] Ejkxtcbosd154246 [address] [place], [place] [address]Dr. Swathi Chato ALT [Catalytic activity/Vol] 13 U/L Critically low 14-59 [facility] Comment on above: Performed By: #### C MP, BNP ####[facility] Kjitiacxhv586[address] [place], [place] [address]Dr. Swathi Chato Anion gap [Moles/Vol] 12.4 mmol/L Normal [facility] Comment on above: Performed By: #### C MP, BNP ####[facility] Syvtqtesxx2712 [place] [address]Dr. Swathi Reis AST [Catalytic activity/Vol] 23 U/L Normal 15-37 [facility] Comment on above: Performed By: #### C MP, BNP ####[facility] Znbcaytvyh8175[address] [place], [place] [address]Dr. Swathi Reis Bilirubin [Mass/Vol] 0.6 mg/dL Normal 0.2-1.0 [facility] Comment on above: Performed By: #### C MP, BNP ####[facility] Mrskvrhdno3420[address] [place], [place] [address]Dr. Swathi Reis Calcium [Mass/Vol] 8.9 mg/dL Normal 8.5-10.1 [facility] Comment on above: Performed By: #### C MP, BNP ####[facility] Huxezpravd705[address] [place], [place] [address]Dr. Swathi Reis Chloride [Moles/Vol] 100 mmol/L Normal 98-107 [facility] Comment on above: Performed By: #### C MP, BNP ####[facility] Cbgtyolezs4838[address] [place], [place] [address]Dr. Swathi Reis CO2 [Moles/Vol] 30.6 mmol/L Normal 21.0-32.0 [facility] Comment on above: Performed By: #### C MP, BNP ####[facility] Donctvrwgt300[address] [place], [place] [address]Dr. Swathi Reis Creatinine [Mass/Vol] 1.54 mg/dL Critically high 0.55-1.02 [facility] Comment on above: Performed By: #### C MP, BNP ####[facility] Fxbtrqnwrh801[address] [place], [place] [address]Dr. Swathi Reis EGFR-AF BAHRAINI 40 mL/min/1.73m2 Critically low >=60 [facility] Comment on above: Performed By: #### C MP, BNP ####[facility] Svfgxtpaci0207[address] [place], [place] [address]Dr. Inessatracy Chato EGFR-NON AF BAHRAINI 33 mL/min/1.73m2 Critically low >=60 [facility] Comment on above: Performed By: #### C MP, BNP ####[facility] Fjjmqncjtr3848 [place] [address]Dr. Swathi Reis Globulin (S) [Mass/Vol] 3.9 g/dL Normal [facility] Comment on above: Performed By: #### C MP, BNP ####[facility] Weevmigkzb816[address] [place], [place] [address]Dr. Swathi Reis Glucose [Mass/Vol] 143 mg/dL Critically high 74-106 [facility] Comment on above: Performed By: #### C MP, BNP ####[facility] Crifjvgsyt496[address] [place], [place] [address]Dr. Swathi Chato Potassium [Moles/Vol] 4.0 mmol/L Normal 3.5-5.1 [facility] Comment on above: Performed By: #### C MP, BNP ####[facility] Mrbzcfdltg355[address] [place], [place] [address]Dr. Swathi Reis Protein [Mass/Vol] 6.3 g/dL Critically low 6.4-8.2 [facility] Comment on above: Performed By: #### C MP, BNP ####[facility] Utxsmtavuj0416[address] [place], [place] [address]Dr. Swathi Chato Sodium [Moles/Vol] 139 mmol/L Normal 136-145 [facility] Comment on above: Performed By: #### C MP, BNP ####[facility] Dhlnuavpxk7880[address] [place], [place] [address]Dr. Swathi Chato Urea nitrogen [Mass/Vol] 27.0 mg/dL Critically high 7.0-18.0 [facility] Comment on above: Performed By: #### C MP, BNP ####[facility] Cagjahfsno26264[address] [place], [place] [address]Dr. Swathi Chato Urea nitrogen/Creatinine [Mass ratio] 17.5 mg/mg Normal [facility] Comment on above: Performed By: #### C MP, BNP ####[facility] Vseegwobir716[address] [place], [place] [address]Dr. Swathi Reis VANCOMYCIN TROUGHon 11-30-20 22 VANCOMYCIN TROUGH 13.2 ug/ml Normal 5.0-20.0 [facility] Comment on above: Performed By: #### V ANCT ####[facility] Gszuhilski226[address] [place], [place] [address]Dr. Swathi Reis XR CHEST 2 Von 08-22-2022 XR CHEST 2 V Normal [facility] BNPon 08-21-2022 Natriuretic peptide B (Bld) [Mass/Vol] 3683.0 pg/mL Critically high <=1,800.0 [facility] Comment on above: Performed By: #### C MP, BNP ####[facility] Zpkudccctt778[address] [place], [place] [address]Dr. Swathi Reis CBC AUTO DIFFon 08-21-2022 BASO # 0.1 103/ul Normal 0.0-0.1 [facility] Comment on above: Performed By: #### C BC ####[facility] Rhbvgdygle5924[address] [place], [place] [address]Dr. Swathi Reis Basophils/100 WBC (Bld) 0.4 % Normal 0.2-2.0 [facility] Comment on above: Performed By: #### C BC ####[facility] Tblcgnudtl0125[address] [place], [place] [address]DrOtto Reis EO # 0.2 103/ul Normal 0.0-0.7 [facility] Comment on above: Performed By: #### C BC ####[facility] Ouglttnhqa0045[address] [place], [place] [address]Dr. Swathi Reis Eosinophils/100 WBC (Bld) 1.8 % Normal 0.9-7.0 [facility] Comment on above: Performed By: #### C BC ####[facility] Sxqmwyrjpl772[address] [place], [place] [address]DrOtto Reis Erythrocyte distribution width (RBC) [Ratio] 14.4 % Normal 11.0-15.0 [facility] Comment on above: Performed By: #### C BC ####[facility] Kkvnthjczy70[address] [place], [place] [address]DrOtto Reis Hematocrit (Bld) [Volume fraction] 33.5 % Critically low 36.0-48.0 [facility] Comment on above: Performed By: #### C BC ####[facility] Bzbydiswcp3636 [place] [address]DrOtto Reis Hemoglobin (Bld) [Mass/Vol] 10.8 g/dL Critically low 12.0-16.0 [facility] Comment on above: Performed By: #### C BC ####[facility] Uumblqznmh1521 [place] [address]DrOtto Reis IG # 0.06 10e3/ul Critically high 0.00-0.03 [facility] Comment on above: Performed By: #### C BC ####[facility] Qfyvxyaaja1156 [place] [address]DrOtto Reis IG % 0.5 % Normal 0.0-0.5 [facility] Comment on above: Performed By: #### C BC ####[facility] Yswjaaqxro8013 [place] [address]DrOtto Reis LYMPH # 0.9 103/ul Critically low 1.2-3.8 [facility] Comment on above: Performed By: #### C BC ####[facility] Nljezcazdk6986 [place] [address]DrOtto Reis Lymphocytes/100 WBC (Bld) 7.2 % Critically low 20.5-60.0 [facility] Comment on above: Performed By: #### C BC ####[facility] Okeumbejqy[address] [place] [address]DrOtto Reis MANUAL DIFF REQ NO Normal [facility] Comment on above: Performed By: #### C BC ####[facility] Rwmvwmtlho0436 [place] [id number] Reis MCH (RBC) [Entitic mass] 29.0 pg Normal 26.7-34.0 [facility] Comment on above: Performed By: #### C BC ####[facility] Syspmupwbg4905 [place] [id number] Reis MCHC (RBC) [Mass/Vol] 32.2 g/dL Normal 29.9-35.2 [facility] Comment on above: Performed By: #### C BC ####[facility] Gbkhowuazk1084 [place] [address]DrOtto Wylietracy Chato MCV (RBC) [Entitic vol] 90.1 fL Normal 81.0-99.0 [facility] Comment on above: Performed By: #### C BC ####[facility] Qshoxbchht1858 [place] [address]DrOtto Reis MONO # 0.8 103/ul Normal 0.3-0.8 [facility] Comment on above: Performed By: #### C BC ####[facility] Fqexjzkjwb9072 [place] [address]DrOtto Reis Monocytes/100 WBC (Bld) 6.3 % Normal 1.7-12.0 [facility] Comment on above: Performed By: #### C BC ####[facility] Oddklerpqd413[address] [place], [place] [address]DrOtto Reis NEUT # 10.7 103/ul Critically high 1.4-6.5 [facility] Comment on above: Performed By: #### C BC ####[facility] Ppxqnthqoh[address] [place], [place] [address]DrOtto Reis Neutrophils/100 WBC (Bld) 83.8 % Critically high 43.0-75.0 [facility] Comment on above: Performed By: #### C BC ####[facility] Fqeclsjmrs372[address] [place], [place] [address]DrOtto Reis Platelet mean volume (Bld) [Entitic vol] 10.7 fL Normal 9.5-13.5 [facility] Comment on above: Performed By: #### C BC ####[facility] [facility] [address] [place], [place] [address]DrOtto Reis PLT 324 103/ul Normal 150-450 [facility] Comment on above: Performed By: #### C BC ####[facility] Yoytntzddw88[address] [place] [id number] Reis RBC 3.72 106/ul Critically low 4.20-5.40 [facility] Comment on above: Performed By: #### C BC ####[facility] Pfqtshrfrr6880 [place] [address]Dr. Swathi Reis WBC 12.8 103/ul Critically high 4.0-11.0 [facility] Comment on above: Performed By: #### C BC ####[facility] Gpekxuautm7962 [place] [address]Dr. Swathi Reis DIGOXINon 08-21-2022 DIG 1.3 ng/mL Normal 0.9-2.0 [facility] Comment on above: Performed By: #### D IG ####[facility] Ffkmklkfoo33[address] [place], [place] [address]Dr. Swathi Reis POINT OF CARE GLUCOSEon 07-25 Glucose [Mass/Vol] 129 mg/dL Critically high 74-106 [facility] Comment on above: Performed By: #### P OCGLUC ####[facility] Zgldessmmx8[address] [place] [address]Dr. Swathi Reis Glucose [Mass/Vol] 145 mg/dL Critically high 74-106 [facility] Comment on above: Performed By: #### P OCGLUC ####[facility] Aagaojxtrn7[address] [place], [place] [address]Dr. Swathi Reis Glucose [Mass/Vol] 366 mg/dL Critically high 74-106 [facility] Comment on above: Performed By: #### P OCGLUC ####[facility] Iiptfvbumw9024 [place] [address]Dr. Swathi Reis Glucose [Mass/Vol] 149 mg/dL Critically high 74-106 [facility] Comment on above: Performed By: #### P OCGLUC ####[facility] Ocpjbxmyxa[address] [place], [place] [address]Dr. Swathi Reis PROF 14(COMP METB)on 022 Albumin [Mass/Vol] 2.4 g/dL Critically low 3.4-5.0 [facility] Comment on above: Performed By: #### C MP, BNP ####[facility] Mbzuogfbut4267 [place] [address]Dr. Swathi Reis Albumin/Globulin [Mass ratio] 0.5 {ratio} Normal [facility] Comment on above: Performed By: #### C MP, BNP ####[facility] Dxqarkomhp3664 [place] [address]Dr. Swathi Reis ALP [Catalytic activity/Vol] 93 U/L Normal 46-116 [facility] Comment on above: Performed By: #### C MP, BNP ####[facility] Nxemykiagh9944 [place] [address]Dr. Swathi Reis ALT [Catalytic activity/Vol] 11 U/L Critically low 14-59 [facility] Comment on above: Performed By: #### C MP, BNP ####[facility] Xgiipjuvjg26[address] [place], [place] [address]Dr. Swathi Reis Anion gap [Moles/Vol] 9.8 mmol/L Normal [facility] Comment on above: Performed By: #### C MP, BNP ####[facility] Jgsuquzjvd852[address] [place], [place] [address]Dr. Swathi Reis AST [Catalytic activity/Vol] 14 U/L Critically low 15-37 [facility] Comment on above: Performed By: #### C MP, BNP ####[facility] Ptnqfxkkdn414[address] [place], [place] [address]Dr. Swathi Reis Bilirubin [Mass/Vol] 0.6 mg/dL Normal 0.2-1.0 [facility] Comment on above: Performed By: #### C MP, BNP ####[facility] Bawydzlaku383[address] [place], [place] [address]Dr. Swathi Chato Calcium [Mass/Vol] 9.4 mg/dL Normal 8.5-10.1 [facility] Comment on above: Performed By: #### C MP, BNP ####[facility] Ieaduxfpvy685846 [address] [place], [place] [address]Dr. Swathi Reis Chloride [Moles/Vol] 102 mmol/L Normal 98-107 [facility] Comment on above: Performed By: #### C MP, BNP ####[facility] Zkfgslcvnd8045 [place] [address]Dr. Swathi Reis CO2 [Moles/Vol] 33.4 mmol/L Critically high 21.0-32.0 [facility] Comment on above: Performed By: #### C MP, BNP ####[facility] Agdetggmnj509346 [address] [place], [place] [address]Dr. Swathi Reis Creatinine [Mass/Vol] 1.79 mg/dL Critically high 0.55-1.02 [facility] Comment on above: Performed By: #### C MP, BNP ####[facility] Fndzqagzkp384[address] [place], [place] [address]Dr. Swathi Reis EGFR-AF BAHRAINI 33 mL/min/1.73m2 Critically low >=60 [facility] Comment on above: Performed By: #### C MP, BNP ####[facility] Huwaqsjxpo291446 [address] [place], [place] [address]Dr. Swathi Reis EGFR-NON AF BAHRAINI 27 mL/min/1.73m2 Critically low >=60 [facility] Comment on above: Performed By: #### C MP, BNP ####[facility] Qiemnaadsk146946 [address] [place], [place] [address]Dr. Inessatracy Reis Globulin (S) [Mass/Vol] 4.9 g/dL Normal [facility] Comment on above: Performed By: #### C MP, BNP ####[facility] Jyisxvcrwu996[address] [place], [place] [address]Dr. Swathi Reis Glucose [Mass/Vol] 121 mg/dL Critically high 74-106 [facility] Comment on above: Performed By: #### C MP, BNP ####[facility] Dsgejlmsab581246 [address] [place], [place] [address]Dr. Swathi Reis Potassium [Moles/Vol] 3.2 mmol/L Critically low 3.5-5.1 [facility] Comment on above: Performed By: #### C MP, BNP ####[facility] Ngdqmcsfek297[address] [place], [place] [address]Dr. Swathi Reis Protein [Mass/Vol] 7.3 g/dL Normal 6.4-8.2 [facility] Comment on above: Performed By: #### C MP, BNP ####[facility] Uqjytfcgte[address] [place] [address]Dr. Swathi Chato Sodium [Moles/Vol] 142 mmol/L Normal 136-145 [facility] Comment on above: Performed By: #### C MP, BNP ####[facility] Dugzmmrlsx1250[address] [place], [place] [address]Dr. Inessatracy Chato Urea nitrogen [Mass/Vol] 32.0 mg/dL Critically high 7.0-18.0 [facility] Comment on above: Performed By: #### C MP, BNP ####[facility] Zyutbfxult147246 [address] [place], [place] [address]Dr. Swathi Reis Urea nitrogen/Creatinine [Mass ratio] 17.9 mg/mg Normal [facility] Comment on above: Performed By: #### C MP, BNP ####[facility] Ksjoirdhit264[address] [place], [place] [address]Dr. Inessatracy Chato BNPon 08-20-2022 Natriuretic peptide B (Bld) [Mass/Vol] 7302.0 pg/mL Critically high <=1,800.0 [facility] Comment on above: Performed By: #### C MP, BNP ####[facility] Dxmgsfnmuo065[address] [place], [place] [address]Dr. Inessatracy Chato C. DIFF PCRon 08-20-2022 C. DIFFICILE PCR Positive Critically abnormal NEGATIVE [facility] Comment on above: Performed By: #### C DIFPOC ####[facility] Aguwlnpjom8965[address] [place], [place] [address]Dr. Inessatracy Chato CBC AUTO DIFFon 08-20-2022 BASO # 0.1 103/ul Normal 0.0-0.1 [facility] Comment on above: Performed By: #### C BC ####[facility] Tcbbtpjlob266[address] [place], [place] [address]Dr. Swathi Reis Basophils/100 WBC (Bld) 0.5 % Normal 0.2-2.0 [facility] Comment on above: Performed By: #### C BC ####[facility] Shbfnooxzo[address] [place], [place] [address]Dr. Swathi Reis EO # 0.1 103/ul Normal 0.0-0.7 [facility] Comment on above: Performed By: #### C BC ####[facility] Exruxwfjyd5041 [place] [address]Dr. Swathi Reis Eosinophils/100 WBC (Bld) 0.3 % Critically low 0.9-7.0 [facility] Comment on above: Performed By: #### C BC ####[facility] Ggddnpjvew8563 [place] [address]Dr. Swathi Reis Erythrocyte distribution width (RBC) [Ratio] 14.5 % Normal 11.0-15.0 [facility] Comment on above: Performed By: #### C BC ####[facility] Amppgjqrvc9573 [place] [address]Dr. Swathi eRis Hematocrit (Bld) [Volume fraction] 31.4 % Critically low 36.0-48.0 [facility] Comment on above: Performed By: #### C BC ####[facility] Xtlbknxngn5913 [place] [address]Dr. Swathi Reis Hemoglobin (Bld) [Mass/Vol] 10.3 g/dL Critically low 12.0-16.0 [facility] Comment on above: Performed By: #### C BC ####[facility] Prfcerqbkq7898 [place] [address]Dr. Swathi Reis IG # 0.12 10e3/ul Critically high 0.00-0.03 [facility] Comment on above: Performed By: #### C BC ####[facility] Luvbldvyof3622 [place] [address]Dr. Swathi Reis IG % 0.7 % Critically high 0.0-0.5 [facility] Comment on above: Performed By: #### C BC ####[facility] Shviwmjsud1263 [place] [address]Dr. Swathi Reis LYMPH # 0.9 103/ul Critically low 1.2-3.8 [facility] Comment on above: Performed By: #### C BC ####[facility] Fnnrpaehir9059 [place] [id number]. Swathi Reis Lymphocytes/100 WBC (Bld) 5.6 % Critically low 20.5-60.0 [facility] Comment on above: Performed By: #### C BC ####[facility] Uayzqktdhx6037 [place] [id number]. Swathi Chato MANUAL DIFF REQ NO Normal [facility] Comment on above: Performed By: #### C BC ####[facility] Nfmnvttztb4268 [place] [id number]. Swathi Chato MCH (RBC) [Entitic mass] 29.3 pg Normal 26.7-34.0 [facility] Comment on above: Performed By: #### C BC ####[facility] Gleuvkgozo5337 [place] [id number]. Swathi Chato MCHC (RBC) [Mass/Vol] 32.8 g/dL Normal 29.9-35.2 [facility] Comment on above: Performed By: #### C BC ####[facility] Dbnohcvezl6870 [place] [id number]. Swathi Chato MCV (RBC) [Entitic vol] 89.5 fL Normal 81.0-99.0 [facility] Comment on above: Performed By: #### C BC ####[facility] Nxbmvmbdku0560 [place] [id number]. Swathi Reis MONO # 0.9 103/ul Critically high 0.3-0.8 [facility] Comment on above: Performed By: #### C BC ####[facility] Uwvrmnhete9673 [place] [id number]. Inessatracy Reis Monocytes/100 WBC (Bld) 5.6 % Normal 1.7-12.0 [facility] Comment on above: Performed By: #### C BC ####[facility] Ddtmtfqbsf3133 [place] [id number]. Swathi Reis NEUT # 14.1 103/ul Critically high 1.4-6.5 [facility] Comment on above: Performed By: #### C BC ####[facility] Ssfpzmpqzr9155 [place] [id number]. Swathi Reis Neutrophils/100 WBC (Bld) 87.3 % Critically high 43.0-75.0 [facility] Comment on above: Performed By: #### C BC ####[facility] Qscxkmpxgu2522 [place] [id number]. Swathi Reis Platelet mean volume (Bld) [Entitic vol] 10.8 fL Normal 9.5-13.5 [facility] Comment on above: Performed By: #### C BC ####[facility] Lcajqmylbm1469 [place] [id number]. Swathi Reis PLT 303 103/ul Normal 150-450 [facility] Comment on above: Performed By: #### C BC ####[facility] Xsutqfpfvr8186 [place] [id number]. Swathi Reis RBC 3.51 106/ul Critically low 4.20-5.40 [facility] Comment on above: Performed By: #### C BC ####[facility] Gdwkltulhz6501 [place] [id number]. Swathi Reis WBC 16.2 103/ul Critically high 4.0-11.0 [facility] Comment on above: Performed By: #### C BC ####[facility] Nnrjomqhmi6034 [place] [id number]. Swathi Reis DIGOXINon 08-20-2022 DIG 1.2 ng/mL Normal 0.9-2.0 [facility] Comment on above: Performed By: #### D IG ####[facility] Osyshpkawh5755 [place] [id number]. Swathi Reis POINT OF CARE GLUCOSEon 07-25 Glucose [Mass/Vol] 180 mg/dL Critically high 74-106 [facility] Comment on above: Performed By: #### P OCGLUC ####[facility] Ndjewpsjoh5951 [place] [id number]. Swathi Reis Glucose [Mass/Vol] 115 mg/dL Critically high 74-106 [facility] Comment on above: Performed By: #### P OCGLUC ####[facility] Zybpzixjjg9286 [place] [address]Dr. Swathi Reis Glucose [Mass/Vol] 235 mg/dL Critically high 74-106 [facility] Comment on above: Performed By: #### P OCGLUC ####[facility] Sfszvxlene7209 [place] [address]Dr. Swathi Reis PROF 14(COMP METB)on 022 Albumin [Mass/Vol] 2.5 g/dL Critically low 3.4-5.0 [facility] Comment on above: Performed By: #### C MP, BNP ####[facility] Hjujzbgrmi4225 [place] [address]Dr. Swathi Reis Albumin/Globulin [Mass ratio] 0.6 {ratio} Normal [facility] Comment on above: Performed By: #### C MP, BNP ####[facility] Jlanlrhsvi1587 [place] [address]Dr. Swathi Reis ALP [Catalytic activity/Vol] 69 U/L Normal 46-116 [facility] Comment on above: Performed By: #### C MP, BNP ####[facility] Rwwjrgfqwe3028 [place] [address]Dr. Swathi Reis ALT [Catalytic activity/Vol] 11 U/L Critically low 14-59 [facility] Comment on above: Performed By: #### C MP, BNP ####[facility] Uqygqrrzym0663 [place] [address]Dr. Swathi Reis Anion gap [Moles/Vol] 11.7 mmol/L Normal [facility] Comment on above: Performed By: #### C MP, BNP ####[facility] Adsasvfnnz7359 [place] [address]Dr. Swathi Reis AST [Catalytic activity/Vol] 18 U/L Normal 15-37 [facility] Comment on above: Performed By: #### C MP, BNP ####[facility] Sqapbgortd3824 [place] [address]Dr. Swathi Reis Bilirubin [Mass/Vol] 1.0 mg/dL Normal 0.2-1.0 [facility] Comment on above: Performed By: #### C MP, BNP ####[facility] Qadtskqxwt6493 [place] [address]Dr. Swathi Reis Calcium [Mass/Vol] 9.2 mg/dL Normal 8.5-10.1 [facility] Comment on above: Performed By: #### C MP, BNP ####[facility] Kzgswdzxjg70[address] [place], [place] [address]Dr. Swathi Chato Chloride [Moles/Vol] 104 mmol/L Normal 98-107 [facility] Comment on above: Performed By: #### C MP, BNP ####[facility] Qyvfjeyyyb084946 [address] [place], [place] [address]Dr. Swathi Reis CO2 [Moles/Vol] 32.7 mmol/L Critically high 21.0-32.0 [facility] Comment on above: Performed By: #### C MP, BNP ####[facility] Kurbwpscha688346 [address] [place], [place] [address]Dr. Swathi Chato Creatinine [Mass/Vol] 1.86 mg/dL Critically high 0.55-1.02 [facility] Comment on above: Performed By: #### C MP, BNP ####[facility] Uqcfvcisbd895[address] [place], [place] [address]Dr. Swathi Chato EGFR-AF BAHRAINI 32 mL/min/1.73m2 Critically low >=60 [facility] Comment on above: Performed By: #### C MP, BNP ####[facility] Yghgcdevhf1449[address] [place], [place] [address]Dr. Swathi Chato EGFR-NON AF BAHRAINI 26 mL/min/1.73m2 Critically low >=60 [facility] Comment on above: Performed By: #### C MP, BNP ####[facility] Vwdrenhxbh140[address] [place], [place] [address]Dr. Swathi Reis Globulin (S) [Mass/Vol] 4.2 g/dL Normal [facility] Comment on above: Performed By: #### C MP, BNP ####[facility] Htqddjbiil0811[address] [place], [place] [address]Dr. Swathi Reis Glucose [Mass/Vol] 135 mg/dL Critically high 74-106 [facility] Comment on above: Performed By: #### C MP, BNP ####[facility] Xjjpuehuov8612[address] [place], [place] [address]Dr. Swathi Reis Potassium [Moles/Vol] 3.4 mmol/L Critically low 3.5-5.1 [facility] Comment on above: Performed By: #### C MP, BNP ####[facility] Zwhhniezbx732346 [address] [place], [place] [address]Dr. Swathi Reis Protein [Mass/Vol] 6.7 g/dL Normal 6.4-8.2 [facility] Comment on above: Performed By: #### C MP, BNP ####[facility] Okxvygxndw81984[address] [place], [place] [address]Dr. Swathi Reis Sodium [Moles/Vol] 145 mmol/L Normal 136-145 [facility] Comment on above: Performed By: #### C MP, BNP ####[facility] Ejhtwhvquo1900[address] [place], [place] [address]Dr. Swathi Reis Urea nitrogen [Mass/Vol] 29.0 mg/dL Critically high 7.0-18.0 [facility] Comment on above: Performed By: #### C MP, BNP ####[facility] Stpbervutb3567[address] [place], [place] [address]Dr. Swathi Reis Urea nitrogen/Creatinine [Mass ratio] 15.6 mg/mg Normal [facility] Comment on above: Performed By: #### C MP, BNP ####[facility] Skclesioso205[address] [place], [place] [address]Dr. Swathi Reis XR CHEST 1 Von 08-20-2022 XR CHEST 1 V Normal [facility] BLOOD GASES BTYon 08-19-2022 02 MODE BIPAP Normal [facility] Comment on above: Performed By: #### A BG ####[facility] Nylnkgomzn8100[address] [place], [place] [address]Dr. Inessatracy Chato ALLENS TEST Positive Normal [facility] Comment on above: Performed By: #### A BG ####[facility] Mvsavhmfbe0638 [place] [address]Dr. Swathi Reis Base excess Calc (Bld) [Moles/Vol] 0.8 mmol/L Normal -2.0-2.0 [facility] Comment on above: Performed By: #### A BG ####[facility] Aopfbdvfoo6769[address] [place], [place] [address]Dr. Swathi Reis BIPAP PRESSURE 12/6 Normal [facility] Comment on above: Performed By: #### A BG ####[facility] Pmxebziukv145[address] [place], [place] [address]Dr. Swathi Reis CPAP [facility] Comment on above: Performed By: #### A BG ####[facility] Uxvlfaoori1345[address] [place], [place] [address]Dr. Swathi Reis FIO2 90.00 % [facility] Comment on above: Performed By: #### A BG ####[facility] Jcpitqfxuo148346 [address] [place], [place] [address]Dr. Swathi Reis HCO3 (Bld) [Moles/Vol] 25.9 mmol/L Normal 22.0-26.0 [facility] Comment on above: Performed By: #### A BG ####[facility] Iiicobbolb985[address] [place], [place] [address]Dr. Swathi Reis LPM [facility] Comment on above: Performed By: #### A BG ####[facility] Ymrnaglrzj95[address] [place], [place] [address]Dr. Swathi Reis MINUTE VOLUME Normal [facility] Comment on above: Performed By: #### A BG ####[facility] Hogcmzsmjy4177[address] [place], [place] [address]Dr. Swathi Reis Oxygen (Bld) [Partial pressure] 95.0 mm[Hg] Normal 80.0-100.0 [facility] Comment on above: Performed By: #### A BG ####[facility] Ljvibjpjon5217[address] [place], [place] [address]Dr. Swathi Reis Oxygen saturation in Blood 97.7 % Normal 95.0-100.0 [facility] Comment on above: Performed By: #### A BG ####[facility] Bkhnquwskg3443 [place] [address]Dr. Swathi Reis PCO2 44.2 mmHg Normal 35.0-45.0 [facility] Comment on above: Performed By: #### A BG ####[facility] Bucuaqkqot7644 [place] [address]Dr. Swathi Reis PEEP [facility] Comment on above: Performed By: #### A BG ####[facility] Pzbqwdqqap0831 [place] [address]Dr. Swathi Reis pH (Bld) 7.377 [pH] Normal 7.350-7.450 [facility] Comment on above: Performed By: #### A BG ####[facility] Ddqfojybsv[address] [place], [place] [address]Dr. Swathi Reis PIP [facility] Comment on above: Performed By: #### A BG ####[facility] Bodkoooqnc647[address] [place], [place] [address]Dr. Swathi Reis PS [facility] Comment on above: Performed By: #### A BG ####[facility] Pbvgskisrl80[address] [place], [place] [address]Dr. Swathi Reis PUNCTURE SITE RR Normal [facility] Comment on above: Performed By: #### A BG ####[facility] Lhnuucryaw770[address] [place], [place] [address]Dr. Swathi Reis RATE [facility] Comment on above: Performed By: #### A BG ####[facility] Mxkisnbefz20[address] [place], [place] [address]Dr. Swathi Reis VENT MODE Normal [facility] Comment on above: Performed By: #### A BG ####[facility] Udwpmapwic846[address] [place], [place] [address]Dr. Swathi Reis [place] [facility] Comment on above: Performed By: #### A BG ####[facility] Fhisyzsczz217[address] [place], [place] [address]Dr. Swathi Reis BNPon 08-19-2022 Natriuretic peptide B (Bld) [Mass/Vol] 2862.0 pg/mL Critically high <=1,800.0 [facility] Comment on above: Performed By: #### L IPA, BNP ####[facility] Izggwnccra2481 [place] [address]Dr. Swathi Reis CARDIAC TRINA 3-6on 2 CK [Catalytic activity/Vol] 25 U/L Critically low 26-192 [facility] Comment on above: Performed By: #### C MREP ####[facility] Hznwtapghl5440 [place] [address]Dr. Swathi Reis CK.MB [Mass/Vol] 0.57 ng/mL Normal <=3.60 [facility] Comment on above: Performed By: #### C MREP ####[facility] Lboiaoicfe429[address] [place], [place] [address]Dr. Swathi Reis HSTROP 16.6 pg/mL Normal 4.0-51.3 [facility] Comment on above: Result Comment: CUT- OFF POINTS HAVE BEEN ESTABLISHED BASED ON THE FOURTH UNIVERSAL DEFINITIONS OF MYOCARDIALINFARCTION. THE UPPER REFERENCE LIMIT (URL) OF TROPONIN, DEFINED THE 99TH PERCENTILE OFcTnI DISTRIBUTION IN A REFERENCE POPULATION, HAS BEEN CONFIRMED THE DECISION THRESHOLDFOR PA DIAGNOSIS. Performed By: #### C MREP ####[facility] Uohobxgorz890[address] [place], [place] [address]Dr. Swathi Reis CK [Catalytic activity/Vol] 26 U/L Normal 26-192 [facility] Comment on above: Performed By: #### C MREP ####[facility] Zgnonfnhjd14[address] [place], [place] [address]Dr. Swathi Reis CK.MB [Mass/Vol] 0.59 ng/mL Normal <=3.60 [facility] Comment on above: Performed By: #### C MREP ####[facility] Jsklgkpoaz5657[address] [place], [place] [address]Dr. Swathi Reis HSTROP 16.3 pg/mL Normal 4.0-51.3 [facility] Comment on above: Result Comment: CUT- OFF POINTS HAVE BEEN ESTABLISHED BASED ON THE FOURTH UNIVERSAL DEFINITIONS OF MYOCARDIALINFARCTION. THE UPPER REFERENCE LIMIT (URL) OF TROPONIN, DEFINED THE 99TH PERCENTILE OFcTnI DISTRIBUTION IN A REFERENCE POPULATION, HAS BEEN CONFIRMED THE DECISION THRESHOLDFOR PA DIAGNOSIS. Performed By: #### C MREP ####[facility] Dndpnfogze0186 [place] [address]Dr. Swathi Reis CBC AUTO DIFFon 08-19-2022 BASO # 0.1 103/ul Normal 0.0-0.1 [facility] Comment on above: Performed By: #### C BC ####[facility] Qvmsksgpjw9237[address] [place], [place] [address]Dr. Swathi Chato Basophils/100 WBC (Bld) 0.4 % Normal 0.2-2.0 [facility] Comment on above: Performed By: #### C BC ####[facility] Lhpirzozvg54[address] [place], [place] [address]Dr. Swathi Reis EO # 0.1 103/ul Normal 0.0-0.7 [facility] Comment on above: Performed By: #### C BC ####[facility] Gotnvdkdlm737[address] [place], [place] [address]Dr. Swathi Reis Eosinophils/100 WBC (Bld) 0.4 % Critically low 0.9-7.0 [facility] Comment on above: Performed By: #### C BC ####[facility] Rbqpjtvcoi58[address] [place], [place] [address]Dr. Swathi Reis Erythrocyte distribution width (RBC) [Ratio] 14.2 % Normal 11.0-15.0 [facility] Comment on above: Performed By: #### C BC ####[facility] Tdldhcucyx[address] [place], [place] [address]Dr. Swathi Reis Hematocrit (Bld) [Volume fraction] 34.4 % Critically low 36.0-48.0 [facility] Comment on above: Performed By: #### C BC ####[facility] Fokdnkdssy4[address] [place], [place] [address]Dr. Inessatracy Reis Hemoglobin (Bld) [Mass/Vol] 11.2 g/dL Critically low 12.0-16.0 [facility] Comment on above: Performed By: #### C BC ####[facility] Pnjfowhmoh[address] [place] [id number]. Swathi Reis IG # 0.08 10e3/ul Critically high 0.00-0.03 The [facility] Comment on above: Performed By: #### C BC ####[facility] Lyuxvvjkfc24[address] [place] [address]Dr. Swathi Reis IG % 0.4 % Normal 0.0-0.5 [facility] Comment on above: Performed By: #### C BC ####[facility] Ofyxyabumq4365 [place] [address]Dr. Swathi Chato LYMPH # 0.8 103/ul Critically low 1.2-3.8 The [facility] Comment on above: Performed By: #### C BC ####[facility] Rivbjjesmh0486 [place] [address]Dr. Inessatracy Reis Lymphocytes/100 WBC (Bld) 4.1 % Critically low 20.5-60.0 [facility] Comment on above: Performed By: #### C BC ####[facility] Grfhasqpxd7[address] [place], [place] [address]Dr. Inessatracy Reis MANUAL DIFF REQ NO Normal [facility] Comment on above: Performed By: #### C BC ####[facility] Fnbyxxwhio9826 [place] [address]Dr. Swathi Reis MCH (RBC) [Entitic mass] 29.1 pg Normal 26.7-34.0 [facility] Comment on above: Performed By: #### C BC ####[facility] Jdxqbuuemw39[address] [place] [address]Dr. Swathi Reis MCHC (RBC) [Mass/Vol] 32.6 g/dL Normal 29.9-35.2 [facility] Comment on above: Performed By: #### C BC ####[facility] Himzmawmzl764[address] [place], [place] [address]Dr. Swathi Chato MCV (RBC) [Entitic vol] 89.4 fL Normal 81.0-99.0 [facility] Comment on above: Performed By: #### C BC ####[facility] Lpgdwbesbf3590 [place] [phone]. Swathi Reis MONO # 1.1 103/ul Critically high 0.3-0.8 The [facility] Comment on above: Performed By: #### C BC ####[facility] Fogjejtlsf3515 [place] [id number]. Swathi Reis Monocytes/100 WBC (Bld) 5.8 % Normal 1.7-12.0 [facility] Comment on above: Performed By: #### C BC ####[facility] Sdbmeaxjdm7268 [place] [address]Dr. Swathi Reis NEUT # 16.4 103/ul Critically high 1.4-6.5 The [facility] Comment on above: Performed By: #### C BC ####[facility] Cdhiqprxli2476 [place] [address]Dr. Swathi Reis Neutrophils/100 WBC (Bld) 88.9 % Critically high 43.0-75.0 [facility] Comment on above: Performed By: #### C BC ####[facility] Sszgozpyim2641 [place] [address]Dr. Swathi Reis Platelet mean volume (Bld) [Entitic vol] 10.6 fL Normal 9.5-13.5 [facility] Comment on above: Performed By: #### C BC ####[facility] Gujwllvpmf0278 [place] [phone]. Swathi Reis PLT 366 103/ul Normal 150-450 [facility] Comment on above: Performed By: #### C BC ####[facility] Afjrmenehp4027 [place] [address]Dr. Swathi Reis RBC 3.85 106/ul Critically low 4.20-5.40 The [facility] Comment on above: Performed By: #### C BC ####[facility] Ytbvbimuqq1520 [place] [phone]. Swathi Reis WBC 18.4 103/ul Critically high 4.0-11.0 The [facility] Comment on above: Performed By: #### C BC ####[facility] Uxyrceeumk108[address] [place], [place] [address]Dr. Swathi Reis CTA CHEST WO W CONon 022 CTA CHEST WO W CON Normal The [facility] CULTURE BLOODon 08-19-2022 Microscopic examination of blood, culture Culture Observations: NO GROWTH AT 5 DAYS. Normal [facility] Comment on above: Performed By: #### B LDCX2 ####[facility] Hjbvbycrbw8660 [place] [phone] Reis Microscopic examination of blood, culture Culture Observations: NO GROWTH AT 5 DAYS. Normal [facility] Comment on above: Performed By: #### B LDCX1 ####[facility] Xiwmludisz0930 [place] [phone]. Swathi Reis Covid-19 PCR (CVDTB)on 07-25 SARS-CoV-2 (COVID-19) RNA ÓSCAR+probe Ql (Unsp spec) Not detected Normal NOT DETECTED [facility] Comment on above: Result Comment: When [...] for this test is supported by the [employer] of Health and Human Service's declaration [...] be used). Performed By: #### C VDTBH ####[facility] Oaczfbiwig8215 [place] [phone]. Swathi Reis Performed By: #### R SPLUS ####[facility] Zdmktmvdzc7314 [place] [phone] Reis LACTATE/LACTIC ACIDon 2021 Lactate [Moles/Vol] 1.5 mmol/L Normal 0.4-1.9 [facility] Comment on above: Performed By: #### L ACT ####[facility] Iyiovpsrvv7537[address] [place], [place] [address]Dr. Swathi Reis LIPASEon 08-19-2022 Lipase [Catalytic activity/Vol] 130.0 U/L Normal 73.0-393.0 [facility] Comment on above: Performed By: #### L IPA, BNP ####[facility] Nltxwfckum9189[address] [place], [place] [address]Dr. Swathi Reis POINT OF CARE GLUCOSEon 07-25 Glucose [Mass/Vol] 222 mg/dL Critically high -106 [facility] Comment on above: Performed By: #### P OCGLUC ####[facility] Avmbdifopv6232[address] [place], [place] [address]Dr. Swathi Reis Glucose [Mass/Vol] 166 mg/dL Critically high -106 [facility] Comment on above: Performed By: #### P OCGLUC ####[facility] Vqqhxxwwbn3532[address] [place], [place] [address]Dr. Swathi Reis Glucose [Mass/Vol] 213 mg/dL Critically high -106 [facility] Comment on above: Performed By: #### P OCGLUC ####[facility] Xpggazowyl254346 [address] [place], [place] [address]Dr. Swathi Reis RESPIRATORY PANEL PLUSon Adenovirus Not detected Normal NOT DETECTED [facility] Comment on above: Performed By: #### R SPLUS ####[facility] Owiuvbrnqm5767[address] [place], [place] [address]Dr. Swathi Reis B. Parapertusis Not detected Normal NOT DETECTED [facility] Comment on above: Performed By: #### R SPLUS ####[facility] Ygbtehppqf816[address] [place], [place] [address]Dr. Swathi Reis B. Pertussis Not detected Normal NOT DETECTED [facility] Comment on above: Performed By: #### R SPLUS ####[facility] Akcifbfbfq960846 [address] [place], [place] [address]Dr. Swathi Reis Chlamydia Pneumoniae Not detected Normal NOT DETECTED [facility] Comment on above: Performed By: #### R SPLUS ####[facility] Slziztrolo083446 [address] [place], [place] [address]Dr. Swathi [facility] Coronavirus 229E Not detected Normal NOT DETECTED [facility] Comment on above: Performed By: #### R SPLUS ####[facility] Mhqifuoona6369[address] [place], [place] [address]Dr. Swathi [facility] Coronavirus HKU1 Not detected Normal NOT DETECTED [facility] Comment on above: Performed By: #### R SPLUS ####[facility] Lrpcyjadah016346 [address] [place], [place] [address]Dr. Swathi [facility] Coronavirus NL63 Not detected Normal NOT DETECTED [facility] Comment on above: Performed By: #### R SPLUS ####[facility] Oegmnghsva0423[address] [place], [place] [address]Dr. tracy [facility] Coronavirus OC43 Not detected Normal NOT DETECTED [facility] Comment on above: Performed By: #### R SPLUS ####[facility] Gnpdbbtmjn3075[address] [place], [place] [address]Dr. Swathi Reis Influenza A H1 2009 Not detected Normal NOT DETECTED [facility] Comment on above: Performed By: #### R SPLUS ####[facility] Mdeksvltdo483246 [address] [place], [place] [address]Dr. Swathi Reis Influenza A H3 Not detected Normal NOT DETECTED [facility] Comment on above: Performed By: #### R SPLUS ####[facility] Ouagzsjifa757246 [address] [place], [place] [address]Dr. Swathi Reis Influenza B Not detected Normal NOT DETECTED [facility] Comment on above: Performed By: #### R SPLUS ####[facility] Nwluguwscv580546 [address] [place], [place] [address]Dr. Swathi Reis Metapneumovirus Not detected Normal NOT DETECTED [facility] Comment on above: Performed By: #### R SPLUS ####[facility] Qrlcjxqjej8915[address] [place], [place] [address]Dr. Swathi Reis Mycoplas. Pneumoniae Not detected Normal NOT DETECTED [facility] Comment on above: Performed By: #### R SPLUS ####[facility] Hntdqqbydg34264[address] [place], [place] [address]Dr. Swathi Reis Parainfluenza 1 Not detected Normal NOT DETECTED [facility] Comment on above: Performed By: #### R SPLUS ####[facility] Yzfkbgdrfl8529[address] [place], [place] [address]Dr. Swathi Reis Parainfluenza 2 Not detected Normal NOT DETECTED [facility] Comment on above: Performed By: #### R SPLUS ####[facility] Fdsvmxxbie834[address] [place], [place] [address]Dr. Swathi Reis Parainfluenza 3 Not detected Normal NOT DETECTED [facility] Comment on above: Performed By: #### R SPLUS ####[facility] Maekbnubyv468[address] [place], [place] [address]Dr. Inessatracy Reis Parainfluenza 4 Not detected Normal NOT DETECTED [facility] Comment on above: Performed By: #### R SPLUS ####[facility] Evzemcgimf320[address] [place], [place] [address]Dr. Swathi Reis Rhino/Enterovirus Not detected Normal NOT DETECTED [facility] Comment on above: Performed By: #### R SPLUS ####[facility] Movmjtkfdr4545[address] [place], [place] [address]Dr. Swathi Reis RP2 Header 1 RESPIRATORY PANEL: VIRUSES Normal [facility] Comment on above: Performed By: #### R SPLUS ####[facility] Chdbogoiiq825[address] [place], [place] [address]Dr. Swathi Reis RP2 Header 2 RESPIRATORY PANEL: BACTERIA Normal [facility] Comment on above: Performed By: #### R SPLUS ####[facility] Qkjhcnojid201[address] [place], [place] [address]Dr. Swathi Reis RSV Not detected Normal NOT DETECTED [facility] Comment on above: Performed By: #### R SPLUS ####[facility] Cgrafpopcf719246 [address] [place], [place] [address]Dr. Swathi Reis XR CHEST 1 Von 08-19-2022 XR CHEST 1 V Normal [facility] BNPon 08-18-2022 Natriuretic peptide B (Bld) [Mass/Vol] 2955.0 pg/mL Critically high <=1,800.0 [facility] Comment on above: Performed By: #### B KEYCASE ASSEMBLER ####[facility] Vnwfyakeqs9511 [place] [address]Dr. Swathi Reis CARDIAC TRINA ADMITon 022 CK [Catalytic activity/Vol] 26 U/L Normal 26-192 [facility] Comment on above: Performed By: #### B FAY, RACQUEL ####[facility] Mazyhfmtzt7503 [place] [address]Dr. Swathi Reis CK.MB [Mass/Vol] 0.79 ng/mL Normal <=3.60 The [facility] Comment on above: Performed By: #### B FAY, RACQUEL ####[facility] Gwirdyrvwm9[address] [place], [place] [address]Dr. Swathi Reis HSTROP 16.0 pg/mL Normal 4.0-51.3 [facility] Comment on above: Result Comment: CUT- OFF POINTS HAVE BEEN ESTABLISHED BASED ON THE FOURTH UNIVERSAL DEFINITIONS OF MYOCARDIALINFARCTION. THE UPPER REFERENCE LIMIT (URL) OF TROPONIN, DEFINED THE 99TH PERCENTILE OFcTnI DISTRIBUTION IN A REFERENCE POPULATION, HAS BEEN CONFIRMED THE DECISION THRESHOLDFOR PA DIAGNOSIS. Performed By: #### B FAY, RACQUEL ####[facility] Ugpfjfvqam8259[address] [place], [place] [address]Dr. Swathi Reis GUANACO 47 ng/mL Normal 9-82 [facility] Comment on above: Performed By: #### B FAY, RACQUEL ####[facility] Mohmndclfd8401 [place] [address]Dr. Swathi Reis CBC AUTO DIFFon 08-18-2022 BASO # 0.1 103/ul Normal 0.0-0.1 [facility] Comment on above: Performed By: #### C BC ####[facility] Pbqsxxnpsc2474 [place] [address]Dr. Swathi Reis Basophils/100 WBC (Bld) 0.4 % Normal 0.2-2.0 [facility] Comment on above: Performed By: #### C BC ####[facility] Chvoeigebk1783 [place] [id number]. Swathi Reis EO # 0.1 103/ul Normal 0.0-0.7 [facility] Comment on above: Performed By: #### C BC ####[facility] Jhtsdftpls3958 [place] [address]Dr. Swathi Reis Eosinophils/100 WBC (Bld) 0.9 % Normal 0.9-7.0 [facility] Comment on above: Performed By: #### C BC ####[facility] Xacyrgvzeo7937[address] [place], [place] [address]Dr. Swathi Reis Erythrocyte distribution width (RBC) [Ratio] 14.2 % Normal 11.0-15.0 [facility] Comment on above: Performed By: #### C BC ####[facility] Gocjbqbpot5837[address] [place], [place] [address]Dr. Swathi Reis Hematocrit (Bld) [Volume fraction] 34.1 % Critically low 36.0-48.0 [facility] Comment on above: Performed By: #### C BC ####[facility] Xjmwxesllz8468[address] [place], [place] [address]Dr. Swathi Ries Hemoglobin (Bld) [Mass/Vol] 11.2 g/dL Critically low 12.0-16.0 [facility] Comment on above: Performed By: #### C BC ####[facility] Wyuzhwltuw339[address] [place], [place] [address]Dr. Swathi Reis IG # 0.06 10e3/ul Critically high 0.00-0.03 [facility] Comment on above: Performed By: #### C BC ####[facility] Utycccehyh0537[address] [place], [place] [address]Dr. Swathi Reis IG % 0.4 % Normal 0.0-0.5 [facility] Comment on above: Performed By: #### C BC ####[facility] Tpqjmkwent8577[address] [place], [place] [address]Dr. Inessatracy Reis LYMPH # 1.4 103/ul Normal 1.2-3.8 [facility] Comment on above: Performed By: #### C BC ####[facility] Gkzjmmumvd4995 [place] [id number]. Inessatracy Reis Lymphocytes/100 WBC (Bld) 10.1 % Critically low 20.5-60.0 [facility] Comment on above: Performed By: #### C BC ####[facility] Hihtwpnrfm7265 [place] [id number]. Swathi Reis MANUAL DIFF REQ NO Normal [facility] Comment on above: Performed By: #### C BC ####[facility] Ycbvrjdqeu1708 [place] [id number]. Swathi Reis MCH (RBC) [Entitic mass] 29.2 pg Normal 26.7-34.0 [facility] Comment on above: Performed By: #### C BC ####[facility] Juldytgfrh615[address] [place], [place] [address]Dr. Swathi Reis MCHC (RBC) [Mass/Vol] 32.8 g/dL Normal 29.9-35.2 [facility] Comment on above: Performed By: #### C BC ####[facility] Oyuepdswel4575 [place] [phone]. Swathi Reis MCV (RBC) [Entitic vol] 89.0 fL Normal 81.0-99.0 [facility] Comment on above: Performed By: #### C BC ####[facility] Vnc[address]zam[address] [place], [place] [address]Dr. Swathi Reis MONO # 1.1 103/ul Critically high 0.3-0.8 [facility] Comment on above: Performed By: #### C BC ####[facility] Znqgkdawic4364 [place] [phone]. Swathi Reis Monocytes/100 WBC (Bld) 8.3 % Normal 1.7-12.0 [facility] Comment on above: Performed By: #### C BC ####[facility] Tcqwhplqzs[address] [place], [place] [address]Dr. Swathi Reis NEUT # 11.0 103/ul Critically high 1.4-6.5 [facility] Comment on above: Performed By: #### C BC ####[facility] Txxpzltlwm1773 [place], [place] [address]Na. Swathi Reis Neutrophils/100 WBC (Bld) 79.9 % Critically high 43.0-75.0 [facility] Comment on above: Performed By: #### C BC ####[facility] Esiqmogpfq1256 [place], [place] [address]Ql. Swathi Reis Platelet mean volume (Bld) [Entitic vol] 10.7 fL Normal 9.5-13.5 [facility] Comment on above: Performed By: #### C BC ####[facility] Cfjcrnkego5007 [place], [place] [address]Ep. Swathi Reis PLT 408 103/ul Normal 150-450 [facility] Comment on above: Performed By: #### C BC ####[facility] Dgsxrfvcrd5732 [place], [place] [address]Tq. Swathi Reis RBC 3.83 106/ul Critically low 4.20-5.40 [facility] Comment on above: Performed By: #### C BC ####[facility] Ocumdglcmd6998 [place], [place] [address]Lz. Swathi Reis WBC 13.8 103/ul Critically high 4.0-11.0 [facility] Comment on above: Performed By: #### C BC ####[facility] Jpwxvcdsfw0745 [place], [place] [address]Ea. Swathi Reis [facility]on [facility]-25 SARS-CoV-2 (COVID-19) RNA ÓSCAR+probe Ql (Unsp spec) Not detected Normal NOT DETECTED [facility] Comment on above: Result Comment: When [...] for this test is supported by the [employer] of Health and Human Service's declaration that [...] be used). Performed By: #### C VDTBH ####[facility] Rvjbzcrukl8727[address] [place], [place] [address]Dr. Swathi Reis D-DIMERon 08-18-2022 D-DIMER 1.83 mg/L FEU Critically high <=0.59 [facility] Comment on above: Performed By: #### D DIM ####[facility] Whzriavntf514[address] [place], [place] [address]Dr. Swathi [facility] D-DIMER COMMENTS SEE BELOW Normal [facility] Comment on above: Result Comment: Incr eases [...] generalized hospitalization. Performed By: #### D DIM ####[facility] Totqmqlcrc4733[address] [place], [place] [address]Dr. Swathi Reis INFLUENZA A AND B AGon 08-18 INFLUENZA A AG Negative Normal NEGATIVE SEE COMMENT [facility] Comment on above: Performed By: #### R SV, INFLUAB ####[facility] Dktcfttbuh240[address] [place], [place] [address]Dr. Swathi Reis INFLUENZA B AG Negative Normal NEGATIVE SEE COMMENT [facility] Comment on above: Performed By: #### R SV, INFLUAB ####[facility] Lydjwyutaj898[address] [place], [place] [address]Dr. Swathi [facility] INFLUPOSH SEE BELOW Normal [facility] Comment on above: Result Comment: NOTE : Live attenuated influenzae vaccine viruses can cause a positive result for a rapid influenza diagnostic test if administered up to 7 days prior to rapid testing. Performed By: #### R LEI, INFLUAB ####[facility] Ybknddqeha3538[address] [place], [place] [address]Dr. Swathi Reis INFLUPOSHB SEE BELOW Normal [facility] Comment on above: Result Comment: NOTE : Live attenuated influenzae vaccine viruses can cause a positive result for a rapid influenza diagnostic test if administered up to 7 days prior to rapid testing. Performed By: #### R LEI, INFLUAB ####[facility] Mkapdsomju515[address] [place], [place] [address]Dr. Swathi Reis INTERNAL CONTROLS Within Normal Limits Normal Wi thin Normal Limits [facility] Comment on above: Performed By: #### R LEI, INFLUAB ####[facility] Nuqwljenax313[address] [place], [place] [address]Dr. Swathi Reis LACTATE/LACTIC ACIDon 2021 Lactate [Moles/Vol] 1.9 mmol/L Normal 0.4-1.9 [facility] Comment on above: Performed By: #### L ACT ####[facility] Zcvtzzvwgv5630[address] [place], [place] [address]Dr. Swathi Reis PROF CHEM 8 (BAS METB)on Anion gap [Moles/Vol] 13.9 mmol/L Normal [facility] Comment on above: Performed By: #### RACQUEL Gonsales MP ####[facility] Mszdzcghwj436[address] [place], [place] [address]Dr. Swathi Reis Calcium [Mass/Vol] 9.9 mg/dL Normal 8.5-10.1 [facility] Comment on above: Performed By: #### B RACQUEL APONTE ####[facility] Wwimcopgsh026[address] [place], [place] [address]Dr. Swathi Reis Chloride [Moles/Vol] 102 mmol/L Normal 98-107 [facility] Comment on above: Performed By: #### B RACQUEL APONTE ####[facility] Dfmzpfjuwr14[address] [place], [place] [address]Dr. Swathi Reis CO2 [Moles/Vol] 29.6 mmol/L Normal 21.0-32.0 [facility] Comment on above: Performed By: #### RACQUEL Gonsales MP ####[facility] Qfoizbkyjv3151 [place] [address]Dr. Swathi Reis Creatinine [Mass/Vol] 1.61 mg/dL Critically high 0.55-1.02 [facility] Comment on above: Performed By: #### B RACQUEL APONTE ####[facility] Eonnfuidfb027[address] [place], [place] [address]Dr. Swathi Reis EGFR-AF BAHRAINI 38 mL/min/1.73m2 Critically low >=60 [facility] Comment on above: Performed By: #### B RACQUEL APONTE ####[facility] Jrouyaiwaw7409[address] [place], [place] [address]Dr. Swathi Reis EGFR-NON AF BAHRAINI 31 mL/min/1.73m2 Critically low >=60 [facility] Comment on above: Performed By: #### RACQUEL Gonsales MP ####[facility] Tylraardps744[address] [place], [place] [address]Dr. Swathi Reis Glucose [Mass/Vol] 192 mg/dL Critically high 74-106 [facility] Comment on above: Performed By: #### RACQUEL Gonsales MP ####[facility] Dwjtwqrczr974[address] [place], [place] [address]Dr. Inessatracy Reis Potassium [Moles/Vol] 4.5 mmol/L Normal 3.5-5.1 [facility] Comment on above: Performed By: #### B RACQUEL APONTE ####[facility] Fframdzznl8101[address] [place], [place] [address]Dr. Swathi Reis Sodium [Moles/Vol] 141 mmol/L Normal 136-145 [facility] Comment on above: Performed By: #### B RACQUEL APONTE ####[facility] Pseelozunf019[address] [place], [place] [address]Dr. Swathi Reis Urea nitrogen [Mass/Vol] 27.0 mg/dL Critically high 7.0-18.0 [facility] Comment on above: Performed By: #### B MP, CMADM ####[facility] Ygcvsxfcdo0298 [place] [address]Dr. Swathi Reis Urea nitrogen/Creatinine [Mass ratio] 16.8 mg/mg Normal [facility] Comment on above: Performed By: #### B MP, CMADM ####[facility] Pnczcqliuo8800 [place] [address]Dr. Swathi Reis RSVon 08-18-2022 RSV AG Negative Normal NEGATIVE [facility] Comment on above: Performed By: #### R SV, INFLUAB ####[facility] Rsnxcdljie4432[address] [place], [place] [address]Dr. Swathi Reis BNPon 07-12-2022 Natriuretic peptide B (Bld) [Mass/Vol] 5375.0 pg/mL Critically high <=1,800.0 [facility] Comment on above: Performed By: #### B KEYCASE ASSEMBLER, CMP ####[facility] Tofmygrlrn212[address] [place], [place] [address]Dr. Swathi Reis CBC AUTO DIFFon 07-12-2022 BASO # 0.1 103/ul Normal 0.0-0.1 [facility] Comment on above: Performed By: #### C BC ####[facility] Jcwnavzlse[address] [place], [place] [address]Dr. Swathi Reis Basophils/100 WBC (Bld) 0.7 % Normal 0.2-2.0 [facility] Comment on above: Performed By: #### C BC ####[facility] Xplcicxvqu948[address] [place], [place] [address]Dr. Swathi Reis EO # 0.3 103/ul Normal 0.0-0.7 [facility] Comment on above: Performed By: #### C BC ####[facility] Tgwfdurpab[address] [place], [place] [address]Dr. Swathi Reis Eosinophils/100 WBC (Bld) 3.2 % Normal 0.9-7.0 [facility] Comment on above: Performed By: #### C BC ####[facility] Ijqzpfjcnf[address] [place], [place] [address]Dr. Swathi Reis Erythrocyte distribution width (RBC) [Ratio] 13.3 % Normal 11.0-15.0 [facility] Comment on above: Performed By: #### C BC ####[facility] Qtqaxphgyn[address] [place] [address]Dr. Swathi Reis Hematocrit (Bld) [Volume fraction] 29.9 % Critically low 36.0-48.0 [facility] Comment on above: Performed By: #### C BC ####[facility] Xthpzxcdjx6217 [place] [address]DrOtto Reis Hemoglobin (Bld) [Mass/Vol] 9.7 g/dL Critically low 12.0-16.0 [facility] Comment on above: Performed By: #### C BC ####[facility] Lhucyajojd452[address] [place], [place] [address]DrOtto Reis IG # 0.05 10e3/ul Critically high 0.00-0.03 [facility] Comment on above: Performed By: #### C BC ####[facility] Alxsxmonnq3497[address] [place], [place] [address]Dr. Swathi Reis IG % 0.5 % Normal 0.0-0.5 [facility] Comment on above: Performed By: #### C BC ####[facility] Dkgilhhgsj992[address] [place], [place] [address]DrOtto Reis LYMPH # 1.5 103/ul Normal 1.2-3.8 [facility] Comment on above: Performed By: #### C BC ####[facility] Tyxjeoathf5229[address] [place], [place] [address]DrOtto Reis Lymphocytes/100 WBC (Bld) 14.0 % Critically low 20.5-60.0 [facility] Comment on above: Performed By: #### C BC ####[facility] Avygkmupil1645[address] [place], [place] [address]DrOtto Reis MANUAL DIFF REQ NO Normal [facility] Comment on above: Performed By: #### C BC ####[facility] Ojnpudxdtd3163 [place] [address]DrOtto Reis MCH (RBC) [Entitic mass] 30.1 pg Normal 26.7-34.0 [facility] Comment on above: Performed By: #### C BC ####[facility] Waqhhzrfen9120 [place] [address]DrOtto Reis MCHC (RBC) [Mass/Vol] 32.4 g/dL Normal 29.9-35.2 [facility] Comment on above: Performed By: #### C BC ####[facility] Ntaacckaez4360 [place] [address]DrOtto Reis MCV (RBC) [Entitic vol] 92.9 fL Normal 81.0-99.0 [facility] Comment on above: Performed By: #### C BC ####[facility] Clrgzrfskj578[address] [place], [place] [address]DrOtto Reis MONO # 1.2 103/ul Critically high 0.3-0.8 [facility] Comment on above: Performed By: #### C BC ####[facility] Yjysznhgyq799[address] [place], [place] [address]DrOtto Reis Monocytes/100 WBC (Bld) 11.1 % Normal 1.7-12.0 [facility] Comment on above: Performed By: #### C BC ####[facility] Wucybivnfn1701[address] [place], [place] [address]DrOtto Reis NEUT # 7.5 103/ul Critically high 1.4-6.5 [facility] Comment on above: Performed By: #### C BC ####[facility] Aesnjshchh0634[address] [place], [place] [address]DrOtto Reis Neutrophils/100 WBC (Bld) 70.5 % Normal 43.0-75.0 [facility] Comment on above: Performed By: #### C BC ####[facility] Feckfjpepe307[address] [place], [place] [address]DrOtto Reis Platelet mean volume (Bld) [Entitic vol] 10.7 fL Normal 9.5-13.5 [facility] Comment on above: Performed By: #### C BC ####[facility] Impkfpidbj4427[address] [place], [place] [address]DrOtto Reis PLT 291 103/ul Normal 150-450 [facility] Comment on above: Performed By: #### C BC ####[facility] Nwrawagetr8951 [place] [id number]. Swathi Reis RBC 3.22 106/ul Critically low 4.20-5.40 [facility] Comment on above: Performed By: #### C BC ####[facility] Zpgarywnly5721 [place] [id number]. Swathi Reis WBC 10.6 103/ul Normal 4.0-11.0 [facility] Comment on above: Performed By: #### C BC ####[facility] Fgzvpxmufr3442 [place] [address]Dr. Swathi Chato POINT OF CARE GLUCOSEon 06-24 Glucose [Mass/Vol] 191 mg/dL Critically high 74-106 [facility] Comment on above: Performed By: #### P OCGLUC ####[facility] Neyhkqbtjr3919 [place] [address]Dr. Swathi Chato PROF 14(COMP METB)on 022 Albumin [Mass/Vol] 2.4 g/dL Critically low 3.4-5.0 [facility] Comment on above: Performed By: #### B KEYCASE ASSEMBLER, CMP ####[facility] Exvwhjacke2666 [place] [id number]. Swathi Reis Albumin/Globulin [Mass ratio] 0.6 {ratio} Normal [facility] Comment on above: Performed By: #### B KEYCASE ASSEMBLER, CMP ####[facility] Ztzmgpjozi7824 [place] [address]Dr. Swathi Reis ALP [Catalytic activity/Vol] 73 U/L Normal 46-116 [facility] Comment on above: Performed By: #### B KEYCASE ASSEMBLER, CMP ####[facility] Ctrityfnqi6590 [place] [address]Dr. Swathi Chato ALT [Catalytic activity/Vol] 11 U/L Critically low 14-59 [facility] Comment on above: Performed By: #### B KEYCASE ASSEMBLER, CMP ####[facility] Nnyhyaeobf9876 [place] [address]Dr. Swathi Reis Anion gap [Moles/Vol] 7.7 mmol/L Normal [facility] Comment on above: Performed By: #### B KEYCASE ASSEMBLER, CMP ####[facility] Eazhvhtuap695[address] [place], [place] [address]Dr. Swathi Reis AST [Catalytic activity/Vol] 15 U/L Normal 15-37 [facility] Comment on above: Performed By: #### B KEYCASE ASSEMBLER, CMP ####[facility] Uiffquemom55264[address] [place], [place] [address]Dr. Swathi Reis Bilirubin [Mass/Vol] 0.3 mg/dL Normal 0.2-1.0 [facility] Comment on above: Performed By: #### B KEYCASE ASSEMBLER, CMP ####[facility] Jcwsmppdxj656346 [address] [place], [place] [address]Dr. Swathi Reis Calcium [Mass/Vol] 9.3 mg/dL Normal 8.5-10.1 [facility] Comment on above: Performed By: #### B KEYCASE ASSEMBLER, CMP ####[facility] Unqxfypihp154246 [address] [place], [place] [address]Dr. Swatih Reis Chloride [Moles/Vol] 104 mmol/L Normal 98-107 [facility] Comment on above: Performed By: #### B KEYCASE ASSEMBLER, CMP ####[facility] Msuxaquxyp68364[address] [place], [place] [address]Dr. Swathi Reis CO2 [Moles/Vol] 30.2 mmol/L Normal 21.0-32.0 [facility] Comment on above: Performed By: #### B KEYCASE ASSEMBLER, CMP ####[facility] Dgmfosgywg328846 [address] [place], [place] [address]Dr. Swathi Reis Creatinine [Mass/Vol] 1.69 mg/dL Critically high 0.55-1.02 [facility] Comment on above: Performed By: #### B KEYCASE ASSEMBLER, CMP ####[facility] Xpyzuiqfbu854746 [address] [place], [place] [address]Dr. Swathi Reis EGFR-AF BAHRAINI 36 mL/min/1.73m2 Critically low >=60 [facility] Comment on above: Performed By: #### B KEYCASE ASSEMBLER, CMP ####[facility] Wyxyfifgad7393 [place] [phone]. Swathi Reis EGFR-NON AF BAHRAINI 29 mL/min/1.73m2 Critically low >=60 [facility] Comment on above: Performed By: #### B KEYCASE ASSEMBLER, CMP ####[facility] Uogbxqmwms3566 [place] [phone]. Swathi Reis Globulin (S) [Mass/Vol] 4.0 g/dL Normal [facility] Comment on above: Performed By: #### B KEYCASE ASSEMBLER, CMP ####[facility] Wblqqvtygh878246 [address] [place], [place] [address]Dr. Swathi Reis Glucose [Mass/Vol] 110 mg/dL Critically high 74-106 [facility] Comment on above: Performed By: #### B KEYCASE ASSEMBLER, CMP ####[facility] Kzbuijtntp765[address] [place], [place] [address]Dr. Swathi Reis Potassium [Moles/Vol] 3.9 mmol/L Normal 3.5-5.1 [facility] Comment on above: Performed By: #### B KEYCASE ASSEMBLER, CMP ####[facility] Pldlpkrmnx398[address] [place], [place] [address]Dr. Swathi Reis Protein [Mass/Vol] 6.4 g/dL Normal 6.4-8.2 [facility] Comment on above: Performed By: #### B KEYCASE ASSEMBLER, CMP ####[facility] Sxsawmoxqz151646 [address] [place], [place] [address]Dr. Swathi Reis Sodium [Moles/Vol] 138 mmol/L Normal 136-145 [facility] Comment on above: Performed By: #### B KEYCASE ASSEMBLER, CMP ####[facility] Akzzshdqhh345346 [address] [place], [place] [address]Dr. Swathi Reis Urea nitrogen [Mass/Vol] 21.0 mg/dL Critically high 7.0-18.0 [facility] Comment on above: Performed By: #### B KEYCASE ASSEMBLER, CMP ####[facility] Belvpodjyh897[address] [place], [place] [address]Dr. Swathi Reis Urea nitrogen/Creatinine [Mass ratio] 12.4 mg/mg Normal [facility] Comment on above: Performed By: #### B KEYCASE ASSEMBLER, CMP ####[facility] Bigvsghkhh875[address] [place], [place] [address]Dr. Swathi Reis BNPon 07-11-2022 Natriuretic peptide B (Bld) [Mass/Vol] 2516.0 pg/mL Critically high <=1,800.0 [facility] Comment on above: Performed By: #### B KEYCASE ASSEMBLER, CMP ####[facility] Yfsqtjvzax529[address] [place], [place] [address]Dr. Swathi Chato C. DIFF PCRon 07-11-2022 C. DIFFICILE PCR Positive Critically abnormal NEGATIVE [facility] Comment on above: Performed By: #### C DIFPOC ####[facility] Qcgfuejczl600[address] [place], [place] [address]Dr. Swathi Chato CBC AUTO DIFFon 07-11-2022 BASO # 0.0 103/ul Normal 0.0-0.1 [facility] Comment on above: Performed By: #### C BC ####[facility] Dtplimvhyo239[address] [place], [place] [address]Dr. Inessatracy Reis Basophils/100 WBC (Bld) 0.4 % Normal 0.2-2.0 [facility] Comment on above: Performed By: #### C BC ####[facility] Zltwcotrwh878[address] [place], [place] [address]Dr. Swathi Chato EO # 0.2 103/ul Normal 0.0-0.7 [facility] Comment on above: Performed By: #### C BC ####[facility] Cziazlxzwj75[address] [place], [place] [address]Dr. Swathi Reis Eosinophils/100 WBC (Bld) 2.2 % Normal 0.9-7.0 [facility] Comment on above: Performed By: #### C BC ####[facility] Mroszbmuug189346 [address] [place], [place] [address]Dr. Swathi Reis Erythrocyte distribution width (RBC) [Ratio] 13.4 % Normal 11.0-15.0 [facility] Comment on above: Performed By: #### C BC ####[facility] Atlgvmwxdn[address] [place], [place] [id number]. Swathi Reis Hematocrit (Bld) [Volume fraction] 27.0 % Critically low 36.0-48.0 [facility] Comment on above: Performed By: #### C BC ####[facility] Trztapjtwq5671 [place] [address]Dr. Swathi Reis Hemoglobin (Bld) [Mass/Vol] 8.5 g/dL Critically low 12.0-16.0 [facility] Comment on above: Performed By: #### C BC ####[facility] Gndrmdlxss1347 [place] [address]Dr. Inessatracy Chato IG # 0.07 10e3/ul Critically high 0.00-0.03 [facility] Comment on above: Performed By: #### C BC ####[facility] Rrktxrzgdb2384 [place] [address]Dr. Swathi Reis IG % 0.6 % Critically high 0.0-0.5 [facility] Comment on above: Performed By: #### C BC ####[facility] Exlkhbynjd9295 [place] [address]Dr. Swathi Reis LYMPH # 1.2 103/ul Normal 1.2-3.8 [facility] Comment on above: Performed By: #### C BC ####[facility] Rayldoolni0124 [place] [address]Dr. Inessatracy Reis Lymphocytes/100 WBC (Bld) 10.5 % Critically low 20.5-60.0 [facility] Comment on above: Performed By: #### C BC ####[facility] Xkjbeloqfv0960 [place] [address]Dr. Inessatracy Reis MANUAL DIFF REQ NO Normal [facility] Comment on above: Performed By: #### C BC ####[facility] Naliatsynz3500 [place] [address]DrOtto Swathi Chato MCH (RBC) [Entitic mass] 29.6 pg Normal 26.7-34.0 [facility] Comment on above: Performed By: #### C BC ####[facility] Yogdzqwkqc990[address] [place], [place] [address]Dr. Swathi Reis MCHC (RBC) [Mass/Vol] 31.5 g/dL Normal 29.9-35.2 [facility] Comment on above: Performed By: #### C BC ####[facility] Isittepbkl1849 [place] [phone]. Swathi Reis MCV (RBC) [Entitic vol] 94.1 fL Normal 81.0-99.0 [facility] Comment on above: Performed By: #### C BC ####[facility] Jvizetbdon2244 [place] [address]Dr. Swathi Reis MONO # 1.1 103/ul Critically high 0.3-0.8 [facility] Comment on above: Performed By: #### C BC ####[facility] Ymmlbwndme3266 [place] [address]Dr. Swathi Chato Monocytes/100 WBC (Bld) 9.9 % Normal 1.7-12.0 [facility] Comment on above: Performed By: #### C BC ####[facility] Lqkjjsfldb9[address] [place], [place] [address]Dr. Swathi Chato NEUT # 8.4 103/ul Critically high 1.4-6.5 [facility] Comment on above: Performed By: #### C BC ####[facility] Hzhpgkkkrx1495 [place] [address]Dr. Swathi Chato Neutrophils/100 WBC (Bld) 76.4 % Critically high 43.0-75.0 [facility] Comment on above: Performed By: #### C BC ####[facility] Wrkotmsnde2787 [place] [phone]. Swathi Chato Platelet mean volume (Bld) [Entitic vol] 10.6 fL Normal 9.5-13.5 [facility] Comment on above: Performed By: #### C BC ####[facility] Cnpiicaajr1261 [place] [id number]. Swathi Chato PLT 248 103/ul Normal 150-450 [facility] Comment on above: Performed By: #### C BC ####[facility] Ucdoaazxey3019 [place] [address]Dr. Swathi Reis RBC 2.87 106/ul Critically low 4.20-5.40 [facility] Comment on above: Performed By: #### C BC ####[facility] Mdotftbjnb075[address] [place], [place] [address]Dr. Swathi Reis WBC 11.0 103/ul Normal 4.0-11.0 [facility] Comment on above: Performed By: #### C BC ####[facility] Orkveyxuej9985[address] [place], [place] [address]Dr. Inessatracy Reis GI PANEL (PCR)on 07-11-2022 Adenovirus F 40/41 Not detected Normal NOT DETECTED [facility] Comment on above: Performed By: #### G IPANEL ####[facility] Tuhcibywci5975[address] [place], [place] [address]Dr. Swathi Reis Astrovirus Not detected Normal NOT DETECTED [facility] Comment on above: Performed By: #### G IPANEL ####[facility] Cmnfvmqudk578[address] [place], [place] [address]Dr. Swathi Reis C. Diff toxin A/B Detected Critically abnormal NOT DETECTED [facility] Comment on above: Performed By: #### G IPANEL ####[facility] Hvjurjqvbw9639[address] [place], [place] [address]Dr. Swathi Reis Campylobacter Not detected Normal NOT DETECTED [facility] Comment on above: Performed By: #### G IPANEL ####[facility] Hdwhhebzdb8840[address] [place], [place] [address]Dr. Swathi Reis Cryptosporidium Not detected Normal NOT DETECTED [facility] Comment on above: Performed By: #### G IPANEL ####[facility] Gizdaytxxw0449[address] [place], [place] [address]Dr. Swathi Reis Cyclos. Cayetanensis Not detected Normal NOT DETECTED [facility] Comment on above: Performed By: #### G IPANEL ####[facility] Uajonqwxlj3312[address] [place], [place] [address]Dr. Swathi Reis E. Coli O157 Not Applicable Normal Not Applicable [facility] Comment on above: Performed By: #### G IPANEL ####[facility] Sfztaaeinv7335 [place] [id number]. [facility] E. histolytica Not detected Normal NOT DETECTED [facility] Comment on above: Performed By: #### G IPANEL ####[facility] Qylmwkrbhb4209[address] [place], [place] [address]Dr. Swathi Reis EAEC Not detected Normal NOT DETECTED [facility] Comment on above: Performed By: #### G IPANEL ####[facility] Jttfocxxnc1967[address] [place], [place] [address]Dr. [facility] EIEC Not detected Normal NOT DETECTED [facility] Comment on above: Performed By: #### G IPANEL ####[facility] Kwzaxanmzz8707[address] [place], [place] [address]Dr. [facility] EPEC Not detected Normal NOT DETECTED [facility] Comment on above: Performed By: #### G IPANEL ####[facility] Astwyqcavk838[address] [place], [place] [address]Dr. Inessatracy Reis ETEC Not detected Normal NOT DETECTED [facility] Comment on above: Performed By: #### G IPANEL ####[facility] Qxbkkgckwu2335[address] [place], [place] [address]Dr. tracy Reis G. Lamblia Not detected Normal NOT DETECTED [facility] Comment on above: Performed By: #### G IPANEL ####[facility] Nkfvdautaf6801[address] [place], [place] [address]Dr. Swathi Reis GIPANEL CONTROLS PASSED Normal [facility] Comment on above: Performed By: #### G IPANEL ####[facility] Ldidhiujbv2844[address] [place], [place] [address]Dr. Swathi Reis GIPNL RICHELLE HEADER GI PANEL BACTERIA Normal [facility] Comment on above: Performed By: #### G IPANEL ####[facility] Wcxxxjrbqc1227[address] [place], [place] [address]Dr. Swathi LOPEZNLHD ECOLI GI PANEL DIARRHEAGEN IC E.COLI / SHIGELLA Normal [facility] Comment on above: Performed By: #### G IPANEL ####[facility] Gkixleqnhp4314[address] [place], [place] [address]Dr. Swathi Reis [facility] INFO SEE BELOW Normal [facility] Comment on above: Result Comment: EAEC - Enteroaggregative E. Coli EPEC- Enteropathogenic E. Coli ETEC- Enterotoxigenic E. Coli lt/st STEC- Shigella-like toxin-producing E. Coli stx1/stx2 EIEC- Shigella/Enteroinvasive E. Coli Performed By: #### G IPANEL ####[facility] Eotpyhjzoj1248[address] [place], [place] [address]Dr. Swathi Reis GIPNLHD PARASITES GI PANEL PARASITES Normal [facility] Comment on above: Performed By: #### G IPANEL ####[facility] Qiqqfihboa914[address] [place], [place] [address]Dr. Swathi Reis [facility] VIRUS GI PANEL VIRUSES Normal [facility] Comment on above: Performed By: #### G IPANEL ####[facility] Nkwctkikwi9897[address] [place], [place] [address]Dr. Swathi Reis Norovirus GI/GII Not detected Normal NOT DETECTED [facility] Comment on above: Performed By: #### G IPANEL ####[facility] Hfhhxfebbg327[address] [place], [place] [address]Dr. Swathi Reis P. Shigelloides Not detected Normal NOT DETECTED [facility] Comment on above: Performed By: #### G IPANEL ####[facility] Qroudxmfte347[address] [place], [place] [address]Dr. Swathi Reis Rotavirus A Not detected Normal NOT DETECTED [facility] Comment on above: Performed By: #### G IPANEL ####[facility] Mqtbcujcks1640[address] [place], [place] [address]Dr. Swathi Reis Salmonella Not detected Normal NOT DETECTED [facility] Comment on above: Performed By: #### G IPANEL ####[facility] Ogvjgqeqdt640[address] [place], [place] [address]Dr. Swathi Reis Sapovirus Not detected Normal NOT DETECTED [facility] Comment on above: Performed By: #### G IPANEL ####[facility] Rahtkofesp684[address] [place], [place] [address]Dr. Swathi Reis STEC Detected Critically abnormal NOT DETECTED [facility] Comment on above: Performed By: #### G IPANEL ####[facility] Byqnquwfhy5946 [place] [address]Dr. Swathi Ries Vibrio Not detected Normal NOT DETECTED [facility] Comment on above: Performed By: #### G IPANEL ####[facility] Etcaoygpce2698 [place] [address]Dr. Swathi Reis Vibrio Cholera Not detected Normal NOT DETECTED [facility] Comment on above: Performed By: #### G IPANEL ####[facility] Fyefjxhwut4284 [place] [address]Dr. Swathi Reis Y. Enterocolitica Not detected Normal NOT DETECTED [facility] Comment on above: Performed By: #### G IPANEL ####[facility] Oyhomwselc[address] [place], [place] [address]Dr. Swathi Reis POINT OF CARE GLUCOSEon 06-23 Glucose [Mass/Vol] 120 mg/dL Critically high 74-106 [facility] Comment on above: Performed By: #### P OCGLUC ####[facility] Gbxmifugbp2927 [place] [address]Dr. Swathi Reis Glucose [Mass/Vol] 193 mg/dL Critically high 74-106 [facility] Comment on above: Performed By: #### P OCGLUC ####[facility] Wdjkoakeyi102246 [address] [place], [place] [address]Dr. Swathi Reis PROF 14(COMP METB)on 022 Albumin [Mass/Vol] 2.4 g/dL Critically low 3.4-5.0 [facility] Comment on above: Performed By: #### B KEYCASE ASSEMBLER, CMP ####[facility] Qlutkgasqx7149 [place] [address]Dr. Swathi Reis Albumin/Globulin [Mass ratio] 0.7 {ratio} Normal [facility] Comment on above: Performed By: #### B KEYCASE ASSEMBLER, CMP ####[facility] Daycfpwxrk2505 [place] [address]Dr. Swathi Reis ALP [Catalytic activity/Vol] 70 U/L Normal 46-116 [facility] Comment on above: Performed By: #### B KEYCASE ASSEMBLER, CMP ####[facility] Ndncjqqocp0074 [place] [id number]. Swathi Reis ALT [Catalytic activity/Vol] 12 U/L Critically low 14-59 [facility] Comment on above: Performed By: #### B KEYCASE ASSEMBLER, CMP ####[facility] Wypekoqssh7031 [place] [phone]. Swathi Reis Anion gap [Moles/Vol] 8.7 mmol/L Normal [facility] Comment on above: Performed By: #### B KEYCASE ASSEMBLER, CMP ####[facility] Bskizdgaaj8992 [place] [phone]. Swathi Reis AST [Catalytic activity/Vol] 11 U/L Critically low 15-37 [facility] Comment on above: Performed By: #### B KEYCASE ASSEMBLER, CMP ####[facility] Rcbaepizpe[address] [place], [place] [address]Dr. Swathi Reis Bilirubin [Mass/Vol] 0.3 mg/dL Normal 0.2-1.0 [facility] Comment on above: Performed By: #### B KEYCASE ASSEMBLER, CMP ####[facility] Zrwxuxhuvw774[address] [place], [place] [address]Dr. Swathi Reis Calcium [Mass/Vol] 9.1 mg/dL Normal 8.5-10.1 [facility] Comment on above: Performed By: #### B KEYCASE ASSEMBLER, CMP ####[facility] Vptojpcfzk1122 [place] [address]Dr. Swathi Reis Chloride [Moles/Vol] 107 mmol/L Normal 98-107 [facility] Comment on above: Performed By: #### B KEYCASE ASSEMBLER, CMP ####[facility] Iikkjjbidi4759 [place] [id number]. Swathi Reis CO2 [Moles/Vol] 27.6 mmol/L Normal 21.0-32.0 [facility] Comment on above: Performed By: #### B KEYCASE ASSEMBLER, CMP ####[facility] Xahpnrfltg4605 [place] [address]Dr. Swathi Reis Creatinine [Mass/Vol] 1.72 mg/dL Critically high 0.55-1.02 [facility] Comment on above: Performed By: #### B KEYCASE ASSEMBLER, CMP ####[facility] Xtbfacpomk[address] [place] [address]Dr. Swathi Reis EGFR-AF BAHRAINI 35 mL/min/1.73m2 Critically low >=60 [facility] Comment on above: Performed By: #### B KEYCASE ASSEMBLER, CMP ####[facility] Zigdztsivy[address] [place], [place] [address]Dr. Swathi Reis EGFR-NON AF BAHRAINI 29 mL/min/1.73m2 Critically low >=60 [facility] Comment on above: Performed By: #### B KEYCASE ASSEMBLER, CMP ####[facility] Lzspzscwpc[address] [place], [place] [address]Dr. Swathi Reis Globulin (S) [Mass/Vol] 3.6 g/dL Normal [facility] Comment on above: Performed By: #### B KEYCASE ASSEMBLER, CMP ####[facility] Itgjoxpjaf20[address] [place], [place] [address]Dr. Swathi Reis Glucose [Mass/Vol] 119 mg/dL Critically high 74-106 [facility] Comment on above: Performed By: #### B KEYCASE ASSEMBLER, CMP ####[facility] Aprybozaqe464[address] [place], [place] [address]Dr. Swathi Reis Potassium [Moles/Vol] 4.3 mmol/L Normal 3.5-5.1 [facility] Comment on above: Performed By: #### B KEYCASE ASSEMBLER, CMP ####[facility] Gvkkxqnzmm717[address] [place], [place] [address]Dr. Swathi Reis Protein [Mass/Vol] 6.0 g/dL Critically low 6.4-8.2 Th [facility] Comment on above: Performed By: #### B KEYCASE ASSEMBLER, CMP ####[facility] Nrjedkurox034[address] [place], [place] [address]Dr. Swathi Reis Sodium [Moles/Vol] 139 mmol/L Normal 136-145 [facility] Comment on above: Performed By: #### B KEYCASE ASSEMBLER, CMP ####[facility] Tfpdvjfaaf850[address] [place], [place] [address]Dr. Swathi Reis Urea nitrogen [Mass/Vol] 23.0 mg/dL Critically high 7.0-18.0 [facility] Comment on above: Performed By: #### B KEYCASE ASSEMBLER, CMP ####[facility] Twwhdgzpcg7159[address] [place], [place] [address]Dr. Swathi Reis Urea nitrogen/Creatinine [Mass ratio] 13.4 mg/mg Normal [facility] Comment on above: Performed By: #### B KEYCASE ASSEMBLER, CMP ####[facility] Poawnoygmg5935[address] [place], [place] [address]Dr. Swathi Reis BNPon 07-10-2022 Natriuretic peptide B (Bld) [Mass/Vol] 2243.0 pg/mL Critically high <=1,800.0 The [facility] Comment on above: Performed By: #### B KEYCASE ASSEMBLER, CMP ####[facility] Dyamqmposz9511[address] [place], [place] [address]Dr. Swathi Reis CBC AUTO DIFFon 07-10-2022 BASO # 0.1 103/ul Normal 0.0-0.1 [facility] Comment on above: Performed By: #### C BC ####[facility] Wsgenecnen7349[address] [place], [place] [address]Dr. Swathi Reis Basophils/100 WBC (Bld) 0.7 % Normal 0.2-2.0 The [facility] Comment on above: Performed By: #### C BC ####[facility] Mdmifwwdee645946 [address] [place], [place] [address]Dr. Swathi Reis EO # 0.2 103/ul Normal 0.0-0.7 The [facility] Comment on above: Performed By: #### C BC ####[facility] Qhwzttqyvk767[address] [place], [place] [address]Dr. Swathi Reis Eosinophils/100 WBC (Bld) 2.1 % Normal 0.9-7.0 [facility] Comment on above: Performed By: #### C BC ####[facility] Xygreqlrca788246 [address] [place], [place] [address]Dr. Swathi Reis Erythrocyte distribution width (RBC) [Ratio] 13.5 % Normal 11.0-15.0 [facility] Comment on above: Performed By: #### C BC ####[facility] Puvnutfnck[address] [place] [address]Dr. Swathi Reis Hematocrit (Bld) [Volume fraction] 36.6 % Normal 36.0-48.0 [facility] Comment on above: Performed By: #### C BC ####[facility] Rhwegmjmsi18[address] [place] [address]Dr. Inessatracy Chato Hemoglobin (Bld) [Mass/Vol] 11.3 g/dL Critically low 12.0-16.0 [facility] Comment on above: Performed By: #### C BC ####[facility] Ojjlbezuhr207[address] [place], [place] [address]Dr. Swathi Reis IG # 0.03 10e3/ul Normal 0.00-0.03 [facility] Comment on above: Performed By: #### C BC ####[facility] Yoyeywulos3699[address] [place], [place] [address]Dr. Swathi Reis IG % 0.4 % Normal 0.0-0.5 [facility] Comment on above: Performed By: #### C BC ####[facility] Diqsiefzkf030[address] [place], [place] [address]DrOtto Reis LYMPH # 0.8 103/ul Critically low 1.2-3.8 [facility] Comment on above: Performed By: #### C BC ####[facility] Uylogqziif099246 [address] [place], [place] [address]Dr. Swathi Reis Lymphocytes/100 WBC (Bld) 10.3 % Critically low 20.5-60.0 [facility] Comment on above: Performed By: #### C BC ####[facility] Abayocigxx568946 [address] [place], [place] [address]DrOtto Reis MANUAL DIFF REQ NO Normal [facility] Comment on above: Performed By: #### C BC ####[facility] Fezyjevyxy4457[address] [place], [place] [address]DrOtto Reis MCH (RBC) [Entitic mass] 29.1 pg Normal 26.7-34.0 [facility] Comment on above: Performed By: #### C BC ####[facility] Acrqobvhej[address] [place] [id number]. Swathi Chato MCHC (RBC) [Mass/Vol] 30.9 g/dL Normal 29.9-35.2 [facility] Comment on above: Performed By: #### C BC ####[facility] Gilwxqhqau5745 [place] [id number]. Swathi Reis MCV (RBC) [Entitic vol] 94.3 fL Normal 81.0-99.0 [facility] Comment on above: Performed By: #### C BC ####[facility] Xsqkitxqzb795746 [address] [place], [place] [address]Dr. Swathi Reis MONO # 0.7 103/ul Normal 0.3-0.8 [facility] Comment on above: Performed By: #### C BC ####[facility] Ddmkvrftux708[address] [place], [place] [address]Dr. Swathi Reis Monocytes/100 WBC (Bld) 10.2 % Normal 1.7-12.0 [facility] Comment on above: Performed By: #### C BC ####[facility] Tufmkktlli817[address] [place], [place] [address]Dr. Swathi Reis NEUT # 5.5 103/ul Normal 1.4-6.5 [facility] Comment on above: Performed By: #### C BC ####[facility] Twseyqfvao7420[address] [place], [place] [address]Dr. Swathi Reis Neutrophils/100 WBC (Bld) 76.3 % Critically high 43.0-75.0 [facility] Comment on above: Performed By: #### C BC ####[facility] Leyiqwzcpu[address] [place], [place] [id number] Reis Platelet mean volume (Bld) [Entitic vol] 10.6 fL Normal 9.5-13.5 [facility] Comment on above: Performed By: #### C BC ####[facility] Xvbetlypqz394[address] [place], [place] [address]Dr. Swathi Reis PLT 212 103/ul Normal 150-450 [facility] Comment on above: Performed By: #### C BC ####[facility] Ycnzsetoid7[address] [place] [id number]. Swathi Reis RBC 3.88 106/ul Critically low 4.20-5.40 [facility] Comment on above: Performed By: #### C BC ####[facility] Bhvxwgtveg0774 [place] [id number]. Swathi Reis WBC 7.3 103/ul Normal 4.0-11.0 [facility] Comment on above: Performed By: #### C BC ####[facility] Qgqtssweij2614 [place] [id number]. Swathi Reis POINT OF CARE GLUCOSEon 06-23 Glucose [Mass/Vol] 171 mg/dL Critically high 74-106 [facility] Comment on above: Performed By: #### P OCGLUC ####[facility] Cxoipsmoyt264[address] [place] [address]Dr. Swathi Reis Glucose [Mass/Vol] 162 mg/dL Critically high 74-106 [facility] Comment on above: Performed By: #### P OCGLUC ####[facility] Jwvlfbcivy9[address] [place] [address]Dr. Swathi Reis Glucose [Mass/Vol] 176 mg/dL Critically high 74-106 [facility] Comment on above: Performed By: #### P OCGLUC ####[facility] Wvtutoyuvt09[address] [place] [address]Dr. Swathi Reis Glucose [Mass/Vol] 140 mg/dL Critically high 74-106 [facility] Comment on above: Performed By: #### P OCGLUC ####[facility] Bubnrtbayg[address] [place] [address]Dr. Swathi Reis Glucose [Mass/Vol] 37 mg/dL Critically low 74-106 [facility] Comment on above: Result Comment: Will Repeat Test Performed By: #### P OCGLUC ####[facility] Qqewlezgly37[address] [place] [address]Dr. Inessatracy Reis PROF 14(COMP METB)on 07-10-2 022 Albumin [Mass/Vol] 2.5 g/dL Critically low 3.4-5.0 [facility] Comment on above: Performed By: #### B KEYCASE ASSEMBLER, CMP ####[facility] Echvzxayuo23[address] [place] [address]Dr. Swathi Reis Albumin/Globulin [Mass ratio] 0.7 {ratio} Normal [facility] Comment on above: Performed By: #### B KEYCASE ASSEMBLER, CMP ####[facility] Opffscifjo38[address] [place] [address]Dr. Swathi Reis ALP [Catalytic activity/Vol] 71 U/L Normal 46-116 [facility] Comment on above: Performed By: #### B KEYCASE ASSEMBLER, CMP ####[facility] Ehamijgoab4489[address] [place], [place] [address]Dr. Swathi Reis ALT [Catalytic activity/Vol] 12 U/L Critically low 14-59 [facility] Comment on above: Performed By: #### B KEYCASE ASSEMBLER, CMP ####[facility] Soyqburtnu8439 [place] [address]Dr. Swathi Reis Anion gap [Moles/Vol] 10.1 mmol/L Normal [facility] Comment on above: Performed By: #### B KEYCASE ASSEMBLER, CMP ####[facility] Rfmstzzopf8487[address] [place], [place] [address]Dr. Swathi Reis AST [Catalytic activity/Vol] 11 U/L Critically low 15-37 [facility] Comment on above: Performed By: #### B KEYCASE ASSEMBLER, CMP ####[facility] Hikdqylwcc9201 [place] [address]Dr. Swathi Reis Bilirubin [Mass/Vol] 0.4 mg/dL Normal 0.2-1.0 [facility] Comment on above: Performed By: #### B KEYCASE ASSEMBLER, CMP ####[facility] Zbkotchsst195[address] [place], [place] [address]Dr. Swathi Reis Calcium [Mass/Vol] 9.0 mg/dL Normal 8.5-10.1 [facility] Comment on above: Performed By: #### B KEYCASE ASSEMBLER, CMP ####[facility] Dhyslukxub896[address] [place], [place] [address]Dr. Swathi Reis Chloride [Moles/Vol] 107 mmol/L Normal 98-107 [facility] Comment on above: Performed By: #### B KEYCASE ASSEMBLER, CMP ####[facility] Vuejmfmjuh232[address] [place] [address]Dr. Swathi Reis CO2 [Moles/Vol] 28.9 mmol/L Normal 21.0-32.0 The [facility] Comment on above: Performed By: #### B KEYCASE ASSEMBLER, CMP ####[facility] Nzqzcvfqji114[address] [place], [place] [address]Dr. Swathi Reis Creatinine [Mass/Vol] 2.01 mg/dL Critically high 0.55-1.02 [facility] Comment on above: Performed By: #### B KEYCASE ASSEMBLER, CMP ####[facility] Wtcsazxnjm964[address] [place], [place] [address]Dr. Swathi Reis EGFR-AF BAHRAINI 29 mL/min/1.73m2 Critically low >=60 [facility] Comment on above: Performed By: #### B KEYCASE ASSEMBLER, CMP ####[facility] Mitnmbobyp800[address] [place], [place] [address]Dr. Swathi Reis EGFR-NON AF BAHRAINI 24 mL/min/1.73m2 Critically low >=60 [facility] Comment on above: Performed By: #### B KEYCASE ASSEMBLER, CMP ####[facility] Zwxtditfms912[address] [place], [place] [address]Dr. Swathi Reis Globulin (S) [Mass/Vol] 3.6 g/dL Normal [facility] Comment on above: Performed By: #### B KEYCASE ASSEMBLER, CMP ####[facility] Udratynoiq1154 [place] [address]Dr. Swathi Reis Glucose [Mass/Vol] 123 mg/dL Critically high 74-106 [facility] Comment on above: Performed By: #### B KEYCASE ASSEMBLER, CMP ####[facility] Yqbpqvikwp035[address] [place], [place] [address]Dr. Swathi Reis Potassium [Moles/Vol] 4.0 mmol/L Normal 3.5-5.1 [facility] Comment on above: Performed By: #### B KEYCASE ASSEMBLER, CMP ####[facility] Lvolnrosdi310[address] [place], [place] [address]Dr. Swathi Reis Protein [Mass/Vol] 6.1 g/dL Critically low 6.4-8.2 Th e [facility] Comment on above: Performed By: #### B KEYCASE ASSEMBLER, CMP ####[facility] Vmnwiuxyva5747[address] [place], [place] [address]Dr. Swathi Reis Sodium [Moles/Vol] 142 mmol/L Normal 136-145 [facility] Comment on above: Performed By: #### B KEYCASE ASSEMBLER, CMP ####[facility] Tssznuijhv0109[address] [place], [place] [address]Dr. Inessatracy Chato Urea nitrogen [Mass/Vol] 27.0 mg/dL Critically high 7.0-18.0 [facility] Comment on above: Performed By: #### B KEYCASE ASSEMBLER, CMP ####[facility] Yvzdvwbqia2359[address] [place], [place] [address]Dr. Swathi Reis Urea nitrogen/Creatinine [Mass ratio] 13.4 mg/mg Normal [facility] Comment on above: Performed By: #### B KEYCASE ASSEMBLER, CMP ####[facility] Qkdzxucqzl1279[address] [place], [place] [address]Dr. Swathi Chato BNPon 07-09-2022 Natriuretic peptide B (Bld) [Mass/Vol] 5933.0 pg/mL Critically high <=1,800.0 [facility] Comment on above: Performed By: #### B KEYCASE ASSEMBLER, CMP ####[facility] Rupdvrhrxu1489[address] [place], [place] [address]Dr. Inessatracy Chato CBC AUTO DIFFon 07-09-2022 BASO # 0.1 103/ul Normal 0.0-0.1 [facility] Comment on above: Performed By: #### C BC ####[facility] Brfbnebagb144046 [address] [place], [place] [address]Dr. Swathi Reis Basophils/100 WBC (Bld) 0.5 % Normal 0.2-2.0 [facility] Comment on above: Performed By: #### C BC ####[facility] Prgopjrsjh0523[address] [place], [place] [address]Dr. Swathi Reis EO # 0.3 103/ul Normal 0.0-0.7 [facility] Comment on above: Performed By: #### C BC ####[facility] Yllzsxanvh7156 [place] [address]Dr. Swathi Reis Eosinophils/100 WBC (Bld) 2.9 % Normal 0.9-7.0 [facility] Comment on above: Performed By: #### C BC ####[facility] Hcuiytwiii4424[address] [place], [place] [address]Dr. Swathi Reis Erythrocyte distribution width (RBC) [Ratio] 13.4 % Normal 11.0-15.0 [facility] Comment on above: Performed By: #### C BC ####[facility] Ynjciptfoo5859[address] [place], [place] [address]Dr. Swathi Reis Hematocrit (Bld) [Volume fraction] 28.8 % Critically low 36.0-48.0 [facility] Comment on above: Performed By: #### C BC ####[facility] Rvyotuubkv8614[address] [place], [place] [address]Dr. Swathi Reis Hemoglobin (Bld) [Mass/Vol] 9.2 g/dL Critically low 12.0-16.0 [facility] Comment on above: Performed By: #### C BC ####[facility] Myxbzqqemw540[address] [place], [place] [address]Dr. Swathi Reis IG # 0.04 10e3/ul Critically high 0.00-0.03 The [facility] Comment on above: Performed By: #### C BC ####[facility] Viynnqyxpu1985[address] [place], [place] [address]Dr. Inessatracy Chato IG % 0.4 % Normal 0.0-0.5 [facility] Comment on above: Performed By: #### C BC ####[facility] Wjsejkkzbz4477[address] [place], [place] [address]Dr. Swathi Reis LYMPH # 1.2 103/ul Normal 1.2-3.8 [facility] Comment on above: Performed By: #### C BC ####[facility] Kmpprlmytl349[address] [place], [place] [address]DrOtto Reis Lymphocytes/100 WBC (Bld) 10.9 % Critically low 20.5-60.0 [facility] Comment on above: Performed By: #### C BC ####[facility] Ruzmfketui[address] [place] [address]DrOtto Reis MANUAL DIFF REQ NO Normal [facility] Comment on above: Performed By: #### C BC ####[facility] Oqtzlfdckx8223 [place] [address]DrOtto Reis MCH (RBC) [Entitic mass] 30.0 pg Normal 26.7-34.0 [facility] Comment on above: Performed By: #### C BC ####[facility] Elizciuyfw759[address] [place], [place] [address]DrOtto Reis MCHC (RBC) [Mass/Vol] 31.9 g/dL Normal 29.9-35.2 [facility] Comment on above: Performed By: #### C BC ####[facility] Dlcbqxhufb1023[address] [place], [place] [address]DrOtto Reis MCV (RBC) [Entitic vol] 93.8 fL Normal 81.0-99.0 [facility] Comment on above: Performed By: #### C BC ####[facility] Gpeqpvzxth0745[address] [place], [place] [address]DrOtto Reis MONO # 1.0 103/ul Critically high 0.3-0.8 [facility] Comment on above: Performed By: #### C BC ####[facility] Knwvlffzkz0914[address] [place], [place] [address]DrOtto Reis Monocytes/100 WBC (Bld) 9.6 % Normal 1.7-12.0 [facility] Comment on above: Performed By: #### C BC ####[facility] Vznxyvcnvo5189[address] [place], [place] [address]DrOtto Reis NEUT # 8.0 103/ul Critically high 1.4-6.5 [facility] Comment on above: Performed By: #### C BC ####[facility] Xyohlgjxbo1732[address] [place], [place] [address]DrOtto Reis Neutrophils/100 WBC (Bld) 75.7 % Critically high 43.0-75.0 [facility] Comment on above: Performed By: #### C BC ####[facility] Pebuvkfsvs37[address] [place] [address]Dr. Swathi Reis Platelet mean volume (Bld) [Entitic vol] 10.6 fL Normal 9.5-13.5 [facility] Comment on above: Performed By: #### C BC ####[facility] Bqczzxglgv8224 [place] [address]Dr. Swathi Chato PLT 307 103/ul Normal 150-450 [facility] Comment on above: Performed By: #### C BC ####[facility] Cfkepxuynf2137[address] [place], [place] [address]Dr. Swathi Reis RBC 3.07 106/ul Critically low 4.20-5.40 [facility] Comment on above: Performed By: #### C BC ####[facility] Uwugjmbbrz5425[address] [place], [place] [address]Dr. Swathi Chato WBC 10.6 103/ul Normal 4.0-11.0 [facility] Comment on above: Performed By: #### C BC ####[facility] Cumtixsmyu[address] [place], [place] [address]DrOtto Reis POINT OF CARE GLUCOSEon 06-23 Glucose [Mass/Vol] 168 mg/dL Critically high 74-106 [facility] Comment on above: Performed By: #### P OCGLUC ####[facility] Ohbftqnjku9[address] [place] [address]Dr. Swathi Reis Glucose [Mass/Vol] 136 mg/dL Critically high 74-106 [facility] Comment on above: Performed By: #### P OCGLUC ####[facility] Jcqyqqrwyc38[address] [place], [place] [address]Dr. Swathi Reis Glucose [Mass/Vol] 203 mg/dL Critically high 74-106 [facility] Comment on above: Performed By: #### P OCGLUC ####[facility] Fpcsrfmshk905[address] [place], [place] [address]DrOtto Reis PROF 14(COMP METB)on 07-09- 022 Albumin [Mass/Vol] 2.6 g/dL Critically low 3.4-5.0 [facility] Comment on above: Performed By: #### B KEYCASE ASSEMBLER, CMP ####[facility] Tecijgndro1836 [place] [id number]. Swathi Reis Albumin/Globulin [Mass ratio] 0.7 {ratio} Normal [facility] Comment on above: Performed By: #### B KEYCASE ASSEMBLER, CMP ####[facility] Armsiwltnh4432 [place] [address]Dr. Swathi Reis ALP [Catalytic activity/Vol] 73 U/L Normal 46-116 [facility] Comment on above: Performed By: #### B KEYCASE ASSEMBLER, CMP ####[facility] Pfinwxcqlb1222 [place] [address]Dr. Swathi Reis ALT [Catalytic activity/Vol] 12 U/L Critically low 14-59 [facility] Comment on above: Performed By: #### B KEYCASE ASSEMBLER, CMP ####[facility] Knrxzauvsv5818 [place] [address]Dr. Swathi Reis Anion gap [Moles/Vol] 12.4 mmol/L Normal [facility] Comment on above: Performed By: #### B KEYCASE ASSEMBLER, CMP ####[facility] Bcykyzanhx0371 [place] [address]Dr. Swathi Reis AST [Catalytic activity/Vol] 10 U/L Critically low 15-37 [facility] Comment on above: Performed By: #### B KEYCASE ASSEMBLER, CMP ####[facility] Rlctwrybfr0164 [place] [address]Dr. Swathi Reis Bilirubin [Mass/Vol] 0.5 mg/dL Normal 0.2-1.0 [facility] Comment on above: Performed By: #### B KEYCASE ASSEMBLER, CMP ####[facility] Hutjkmbjny7075 [place] [address]Dr. Swathi Reis Calcium [Mass/Vol] 8.7 mg/dL Normal 8.5-10.1 [facility] Comment on above: Performed By: #### B KEYCASE ASSEMBLER, CMP ####[facility] Iyxkhvhxnx6955 [place] [id number]. Swathi Reis Chloride [Moles/Vol] 105 mmol/L Normal 98-107 [facility] Comment on above: Performed By: #### B KEYCASE ASSEMBLER, CMP ####[facility] Azjxiiqkey[address] [place], [place] [address]Dr. Swathi Reis CO2 [Moles/Vol] 27.3 mmol/L Normal 21.0-32.0 [facility] Comment on above: Performed By: #### B KEYCASE ASSEMBLER, CMP ####[facility] Fixoqsuzkk4110 [place] [address]Dr. Swathi Reis Creatinine [Mass/Vol] 2.02 mg/dL Critically high 0.55-1.02 [facility] Comment on above: Performed By: #### B KEYCASE ASSEMBLER, CMP ####[facility] Omvphbmfrw[address] [place], [place] [address]Dr. Inessatracy Chato EGFR-AF BAHRAINI 29 mL/min/1.73m2 Critically low >=60 [facility] Comment on above: Performed By: #### B KEYCASE ASSEMBLER, CMP ####[facility] Hwlddeusyd4487[address] [place], [place] [address]Dr. Swathi Chato EGFR-NON AF BAHRAINI 24 mL/min/1.73m2 Critically low >=60 [facility] Comment on above: Performed By: #### B KEYCASE ASSEMBLER, CMP ####[facility] Jdyxykvgga7434[address] [place], [place] [address]Dr. Inessatracy Chato Globulin (S) [Mass/Vol] 3.6 g/dL Normal [facility] Comment on above: Performed By: #### B KEYCASE ASSEMBLER, CMP ####[facility] Lkhioikzpm5246 [place] [address]Dr. Inessatracy Chato Glucose [Mass/Vol] 134 mg/dL Critically high 74-106 [facility] Comment on above: Performed By: #### B KEYCASE ASSEMBLER, CMP ####[facility] Zynqvzglow3337[address] [place], [place] [address]Dr. Swathi Reis Potassium [Moles/Vol] 3.7 mmol/L Normal 3.5-5.1 [facility] Comment on above: Performed By: #### B KEYCASE ASSEMBLER, CMP ####[facility] Ekkcguebvk[address] [place], [place] [address]Dr. Swathi Reis Protein [Mass/Vol] 6.2 g/dL Critically low 6.4-8.2 Th e [facility] Comment on above: Performed By: #### B KEYCASE ASSEMBLER, CMP ####[facility] Zuezyxolae[address] [place], [place] [address]Dr. Inessatracy Reis Sodium [Moles/Vol] 141 mmol/L Normal 136-145 [facility] Comment on above: Performed By: #### B KEYCASE ASSEMBLER, CMP ####[facility] Bdjhwduxud4020[address] [place], [place] [address]Dr. Inessatracy Reis Urea nitrogen [Mass/Vol] 29.0 mg/dL Critically high 7.0-18.0 [facility] Comment on above: Performed By: #### B KEYCASE ASSEMBLER, CMP ####[facility] Ryyoailvse[address] [place], [place] [address]Dr. Swathi Reis Urea nitrogen/Creatinine [Mass ratio] 14.4 mg/mg Normal [facility] Comment on above: Performed By: #### B KEYCASE ASSEMBLER, CMP ####[facility] Mfyqrfhqfr[address] [place], [place] [address]Dr. Swathi Chato XR CHEST 2 Von 07-09-2022 XR CHEST 2 V Normal [facility] BNPon 07-08-2022 Natriuretic peptide B (Bld) [Mass/Vol] 6044.0 pg/mL Critically high <=1,800.0 [facility] Comment on above: Performed By: #### B KEYCASE ASSEMBLER, CMP ####[facility] Txwyeozfij[address] [place], [place] [address]Dr. Swathi Chato CBC AUTO DIFFon 07-08-2022 BASO # 0.1 103/ul Normal 0.0-0.1 [facility] Comment on above: Performed By: #### C BC ####[facility] Gvqdvnwzlm[address] [place], [place] [address]Dr. Swathi Reis Basophils/100 WBC (Bld) 0.7 % Normal 0.2-2.0 [facility] Comment on above: Performed By: #### C BC ####[facility] [address]riprmyewr[address] [place] [id number]. Swathi Reis EO # 0.3 103/ul Normal 0.0-0.7 [facility] Comment on above: Performed By: #### C BC ####[facility] J[address]rudgzzn[address] [place] [address]Dr. Swathi Reis Eosinophils/100 WBC (Bld) 2.9 % Normal 0.9-7.0 [facility] Comment on above: Performed By: #### C BC ####[facility] Ntzzdaxkoj4[address] [place] [address]Dr. Swathi Reis Erythrocyte distribution width (RBC) [Ratio] 13.5 % Normal 11.0-15.0 [facility] Comment on above: Performed By: #### C BC ####[facility] Lgxtrpyyyg8[address] [place], [place] [address]Dr. Swathi Reis Hematocrit (Bld) [Volume fraction] 29.9 % Critically low 36.0-48.0 [facility] Comment on above: Performed By: #### C BC ####[facility] Vvwfsejqbt18[address] [place], [place] [address]Dr. Swathi Reis Hemoglobin (Bld) [Mass/Vol] 9.5 g/dL Critically low 12.0-16.0 [facility] Comment on above: Performed By: #### C BC ####[facility] Afltqkkezt9[address] [place], [place] [address]Dr. Swathi Reis IG # 0.03 10e3/ul Normal 0.00-0.03 [facility] Comment on above: Performed By: #### C BC ####[facility] Gskrqpgnwo766[address] [place], [place] [address]Dr. Swathi Reis IG % 0.3 % Normal 0.0-0.5 [facility] Comment on above: Performed By: #### C BC ####[facility] Frnsojvyqb260[address] [place], [place] [address]Dr. Swathi Reis LYMPH # 0.9 103/ul Critically low 1.2-3.8 [facility] Comment on above: Performed By: #### C BC ####[facility] Tumjxipwsl[address] [place] [id number]. Inessatracy Reis Lymphocytes/100 WBC (Bld) 8.4 % Critically low 20.5-60.0 [facility] Comment on above: Performed By: #### C BC ####[facility] Usjprjirdd[address] [place] [id number]. Swathi Reis MANUAL DIFF REQ NO Normal [facility] Comment on above: Performed By: #### C BC ####[facility] Syngwuvllz35[address] [place] [id number]. Swathi Reis MCH (RBC) [Entitic mass] 30.1 pg Normal 26.7-34.0 [facility] Comment on above: Performed By: #### C BC ####[facility] Kjbklsdrcq14[address] [place] [id number]. Swathi Reis MCHC (RBC) [Mass/Vol] 31.8 g/dL Normal 29.9-35.2 [facility] Comment on above: Performed By: #### C BC ####[facility] Gsbifdmjmf2514 [place] [phone]. Swathi Reis MCV (RBC) [Entitic vol] 94.6 fL Normal 81.0-99.0 [facility] Comment on above: Performed By: #### C BC ####[facility] Plkcsedfdr7426 [place] [id number]. Swathi Reis MONO # 1.0 103/ul Critically high 0.3-0.8 [facility] Comment on above: Performed By: #### C BC ####[facility] Gmfdahzsbd32[address] [place] [phone]. Swathi Reis Monocytes/100 WBC (Bld) 9.5 % Normal 1.7-12.0 [facility] Comment on above: Performed By: #### C BC ####[facility] Oznpigymew94[address] [place] [phone]. Swathi Reis NEUT # 8.3 103/ul Critically high 1.4-6.5 [facility] Comment on above: Performed By: #### C BC ####[facility] Mnpvacungq0258 [place] [phone]. Swathi Reis Neutrophils/100 WBC (Bld) 78.2 % Critically high 43.0-75.0 [facility] Comment on above: Performed By: #### C BC ####[facility] Ntozbdahkj0846 [place] [phone]. Swathi Reis Platelet mean volume (Bld) [Entitic vol] 10.7 fL Normal 9.5-13.5 [facility] Comment on above: Performed By: #### C BC ####[facility] Dihyfjamfj5721 [place] [phone]. Swathi Reis PLT 273 103/ul Normal 150-450 [facility] Comment on above: Performed By: #### C BC ####[facility] Ekrlvwldae8625 [place] [phone]. Swathi Reis RBC 3.16 106/ul Critically low 4.20-5.40 [facility] Comment on above: Performed By: #### C BC ####[facility] Mxsatmdftr4457 [place] [phone]. Swathi Reis WBC 10.6 103/ul Normal 4.0-11.0 [facility] Comment on above: Performed By: #### C BC ####[facility] Kxysnmxmyn4982 [place] [phone]. Swathi Reis POINT OF CARE GLUCOSEon 06-23 Glucose [Mass/Vol] 243 mg/dL Critically high 74-106 [facility] Comment on above: Performed By: #### P OCGLUC ####[facility] Anjprryhzz2497 [place] [phone]. Swathi Reis Glucose [Mass/Vol] 161 mg/dL Critically high 74-106 [facility] Comment on above: Performed By: #### P OCGLUC ####[facility] Ubcklvocfr3752 [place] [phone]. Swathi Reis Glucose [Mass/Vol] 186 mg/dL Critically high 74-106 [facility] Comment on above: Performed By: #### P OCGLUC ####[facility] Bxoedurnry5345 [place] [address]Dr. Swathi Reis Glucose [Mass/Vol] 168 mg/dL Critically high 74-106 [facility] Comment on above: Performed By: #### P OCGLUC ####[facility] Zszryseuvl7066 [place] [address]Dr. Swathi Reis PROF 14(COMP METB)on 07-08- 022 Albumin [Mass/Vol] 2.5 g/dL Critically low 3.4-5.0 [facility] Comment on above: Performed By: #### B KEYCASE ASSEMBLER, CMP ####[facility] Cetkoobrzi0734[address] [place], [place] [address]Dr. Swathi Reis Albumin/Globulin [Mass ratio] 0.7 {ratio} Normal [facility] Comment on above: Performed By: #### B KEYCASE ASSEMBLER, CMP ####[facility] Btoimtyhxv1697[address] [place], [place] [address]Dr. Swathi Reis ALP [Catalytic activity/Vol] 77 U/L Normal 46-116 [facility] Comment on above: Performed By: #### B KEYCASE ASSEMBLER, CMP ####[facility] Wyegapjqek7900[address] [place], [place] [address]Dr. Swathi Reis ALT [Catalytic activity/Vol] 16 U/L Normal 14-59 [facility] Comment on above: Performed By: #### B KEYCASE ASSEMBLER, CMP ####[facility] Vtlifmnhpw2867[address] [place], [place] [address]Dr. Swathi Reis Anion gap [Moles/Vol] 11.9 mmol/L Normal [facility] Comment on above: Performed By: #### B KEYCASE ASSEMBLER, CMP ####[facility] Wcdosbaucv549[address] [place], [place] [address]Dr. Swathi Reis AST [Catalytic activity/Vol] 13 U/L Critically low 15-37 [facility] Comment on above: Performed By: #### B KEYCASE ASSEMBLER, CMP ####[facility] Hthvzsumwj349[address] [place], [place] [address]Dr. Swathi Reis Bilirubin [Mass/Vol] 0.6 mg/dL Normal 0.2-1.0 [facility] Comment on above: Performed By: #### B KEYCASE ASSEMBLER, CMP ####[facility] Ugmyuwwkgt0109[address] [place], [place] [address]Dr. Swathi Reis Calcium [Mass/Vol] 8.7 mg/dL Normal 8.5-10.1 [facility] Comment on above: Performed By: #### B KEYCASE ASSEMBLER, CMP ####[facility] Urdismmnpe835646 [address] [place], [place] [address]Dr. Inessatracy Reis Chloride [Moles/Vol] 105 mmol/L Normal 98-107 [facility] Comment on above: Performed By: #### B KEYCASE ASSEMBLER, CMP ####[facility] Adovngfbqr518746 [address] [place], [place] [address]Dr. Inessatracy Reis CO2 [Moles/Vol] 26.6 mmol/L Normal 21.0-32.0 [facility] Comment on above: Performed By: #### B KEYCASE ASSEMBLER, CMP ####[facility] Txpmwqhrfu874[address] [place], [place] [address]Dr. Swathi Chato Creatinine [Mass/Vol] 1.54 mg/dL Critically high 0.55-1.02 [facility] Comment on above: Performed By: #### B KEYCASE ASSEMBLER, CMP ####[facility] Qabksnulvm7429[address] [place], [place] [address]Dr. Inessatracy Chato EGFR-AF BAHRAINI 40 mL/min/1.73m2 Critically low >=60 [facility] Comment on above: Performed By: #### B KEYCASE ASSEMBLER, CMP ####[facility] Wanyhbkmou413[address] [place], [place] [address]Dr. Inessatracy Chato EGFR-NON AF BAHRAINI 33 mL/min/1.73m2 Critically low >=60 [facility] Comment on above: Performed By: #### B KEYCASE ASSEMBLER, CMP ####[facility] Fyrsfueoof485[address] [place], [place] [address]Dr. Swathi Reis Globulin (S) [Mass/Vol] 3.8 g/dL Normal [facility] Comment on above: Performed By: #### B KEYCASE ASSEMBLER, CMP ####[facility] Twrzpmkrdb2242 [place] [address]Dr. Swathi Reis Glucose [Mass/Vol] 153 mg/dL Critically high 74-106 [facility] Comment on above: Performed By: #### B KEYCASE ASSEMBLER, CMP ####[facility] Vqyvdvkddp9828[address] [place], [place] [address]Dr. Swathi Reis Potassium [Moles/Vol] 3.5 mmol/L Normal 3.5-5.1 [facility] Comment on above: Performed By: #### B KEYCASE ASSEMBLER, CMP ####[facility] Pskxlzwcrj4040[address] [place], [place] [address]Dr. Swathi Reis Protein [Mass/Vol] 6.3 g/dL Critically low 6.4-8.2 [facility] Comment on above: Performed By: #### B KEYCASE ASSEMBLER, CMP ####[facility] Ixbdipygnp2445[address] [place], [place] [address]Dr. Swathi Reis Sodium [Moles/Vol] 140 mmol/L Normal 136-145 [facility] Comment on above: Performed By: #### B KEYCASE ASSEMBLER, CMP ####[facility] Vytzsoumit816[address] [place], [place] [address]Dr. Swathi Reis Urea nitrogen [Mass/Vol] 25.0 mg/dL Critically high 7.0-18.0 [facility] Comment on above: Performed By: #### B KEYCASE ASSEMBLER, CMP ####[facility] Qfpxpszmjh509346 [address] [place], [place] [address]Dr. Swathi Reis Urea nitrogen/Creatinine [Mass ratio] 16.2 mg/mg Normal [facility] Comment on above: Performed By: #### B KEYCASE ASSEMBLER, CMP ####[facility] Twhuevpyie299[address] [place], [place] [address]Dr. Swathi Reis BNPon 07-07-2022 Natriuretic peptide B (Bld) [Mass/Vol] 6413.0 pg/mL Critically high <=1,800.0 [facility] Comment on above: Performed By: #### B KEYCASE ASSEMBLER, CMP ####[facility] Tspjbcjnsa4267[address] [place], [place] [address]Dr. Swathi Reis CBC AUTO DIFFon 07-07-2022 BASO # 0.1 103/ul Normal 0.0-0.1 [facility] Comment on above: Performed By: #### C BC ####[facility] Eragjdxrvi75[address] [place] [address]Dr. Inessatracy Chato Basophils/100 WBC (Bld) 0.4 % Normal 0.2-2.0 [facility] Comment on above: Performed By: #### C BC ####[facility] Wmujpsxyky1809[address] [place], [place] [address]Dr. Swathi Reis EO # 0.3 103/ul Normal 0.0-0.7 [facility] Comment on above: Performed By: #### C BC ####[facility] Jxzyygguxd995346 [address] [place], [place] [address]Dr. Swathi Reis Eosinophils/100 WBC (Bld) 2.6 % Normal 0.9-7.0 [facility] Comment on above: Performed By: #### C BC ####[facility] Chezdmwxrm5835[address] [place], [place] [address]Dr. Swathi Reis Erythrocyte distribution width (RBC) [Ratio] 13.7 % Normal 11.0-15.0 [facility] Comment on above: Performed By: #### C BC ####[facility] Mwlviulmve5515[address] [place], [place] [address]Dr. Swathi Reis Hematocrit (Bld) [Volume fraction] 28.9 % Critically low 36.0-48.0 [facility] Comment on above: Performed By: #### C BC ####[facility] Dposzuasgd829546 [address] [place], [place] [address]Dr. Swathi Reis Hemoglobin (Bld) [Mass/Vol] 9.3 g/dL Critically low 12.0-16.0 [facility] Comment on above: Performed By: #### C BC ####[facility] Mlwpqmxhsl9409[address] [place], [place] [address]Dr. Swathi Reis IG # 0.04 10e3/ul Critically high 0.00-0.03 [facility] Comment on above: Performed By: #### C BC ####[facility] Fqsxrluotb5839[address] [place], [place] [address]Dr. Swathi Reis IG % 0.4 % Normal 0.0-0.5 [facility] Comment on above: Performed By: #### C BC ####[facility] Ofbggedomf1313 [place] [address]DrOtto Reis LYMPH # 1.0 103/ul Critically low 1.2-3.8 [facility] Comment on above: Performed By: #### C BC ####[facility] Lxfcobxpdf1652 [place] [address]DrOtto Reis Lymphocytes/100 WBC (Bld) 8.6 % Critically low 20.5-60.0 [facility] Comment on above: Performed By: #### C BC ####[facility] Wrdicygafw938[address] [place], [place] [address]DrOtto Reis MANUAL DIFF REQ NO Normal [facility] Comment on above: Performed By: #### C BC ####[facility] Cmyuklwgdm5354 [place] [address]DrOtto Reis MCH (RBC) [Entitic mass] 30.0 pg Normal 26.7-34.0 [facility] Comment on above: Performed By: #### C BC ####[facility] Qzntmkiggf6640[address] [place], [place] [address]DrOtto Reis MCHC (RBC) [Mass/Vol] 32.2 g/dL Normal 29.9-35.2 [facility] Comment on above: Performed By: #### C BC ####[facility] Uvvycrzvnd[address] [place], [place] [address]DrOtto Reis MCV (RBC) [Entitic vol] 93.2 fL Normal 81.0-99.0 [facility] Comment on above: Performed By: #### C BC ####[facility] Jlzrmpeygi917[address] [place], [place] [address]DrOtto Reis MONO # 1.0 103/ul Critically high 0.3-0.8 [facility] Comment on above: Performed By: #### C BC ####[facility] Mcjulolwmk117[address] [place], [place] [address]DrOtto Reis Monocytes/100 WBC (Bld) 9.0 % Normal 1.7-12.0 [facility] Comment on above: Performed By: #### C BC ####[facility] Ifahcslvjk8435 [place] [address]DrOtto Swathi Reis NEUT # 9.0 103/ul Critically high 1.4-6.5 [facility] Comment on above: Performed By: #### C BC ####[facility] Opnypvwesw5408 [place] [address]DrOtto Swathi Reis Neutrophils/100 WBC (Bld) 79.0 % Critically high 43.0-75.0 [facility] Comment on above: Performed By: #### C BC ####[facility] Ygonhrgbdy8349[address] [place], [place] [address]DrOtto Swathi Chato Platelet mean volume (Bld) [Entitic vol] 10.7 fL Normal 9.5-13.5 [facility] Comment on above: Performed By: #### C BC ####[facility] Lqajbplvqj487[address] [place], [place] [address]DrOtto Swathi Reis PLT 264 103/ul Normal 150-450 [facility] Comment on above: Performed By: #### C BC ####[facility] Cjguoqzkxf1475[address] [place], [place] [address]DrOtto Swathi Chato RBC 3.10 106/ul Critically low 4.20-5.40 [facility] Comment on above: Performed By: #### C BC ####[facility] Tmtkpvleyh[address] [place], [place] [id number] Swathi Chato WBC 11.4 103/ul Critically high 4.0-11.0 [facility] Comment on above: Performed By: #### C BC ####[facility] Gahxdkrkxn[address] [place], [place] [id number] Wylietracy Chato POINT OF CARE GLUCOSEon 06-23 Glucose [Mass/Vol] 298 mg/dL Critically high 74-106 [facility] Comment on above: Performed By: #### P OCGLUC ####[facility] Svsfuzovbp1017[address] [place], [place] [address]Dr. Swathi Reis Glucose [Mass/Vol] 123 mg/dL Critically high 74-106 [facility] Comment on above: Performed By: #### P OCGLUC ####[facility] Skcdgyhdxo5537 [place] [address]Dr. Swathi Reis Glucose [Mass/Vol] 263 mg/dL Critically high 74-106 [facility] Comment on above: Performed By: #### P OCGLUC ####[facility] Mmtsmwjels0144 [place] [address]Dr. Swathi Reis Glucose [Mass/Vol] 151 mg/dL Critically high 74-106 [facility] Comment on above: Performed By: #### P OCGLUC ####[facility] Yxsqwrroox7979[address] [place], [place] [address]Dr. Swathi Chato PROF 14(COMP METB)on 07-07-2 022 Albumin [Mass/Vol] 2.5 g/dL Critically low 3.4-5.0 [facility] Comment on above: Performed By: #### B KEYCASE ASSEMBLER, CMP ####[facility] Hmgbrfenbv709[address] [place], [place] [address]Dr. Swathi Chato Albumin/Globulin [Mass ratio] 0.7 {ratio} Normal [facility] Comment on above: Performed By: #### B KEYCASE ASSEMBLER, CMP ####[facility] Rgkaryrvjz4314[address] [place], [place] [address]Dr. Swathi Chato ALP [Catalytic activity/Vol] 82 U/L Normal 46-116 [facility] Comment on above: Performed By: #### B KEYCASE ASSEMBLER, CMP ####[facility] Jffydldreb2511[address] [place], [place] [address]Dr. Swathi Chato ALT [Catalytic activity/Vol] 13 U/L Critically low 14-59 [facility] Comment on above: Performed By: #### B KEYCASE ASSEMBLER, CMP ####[facility] Miymjobrcl613[address] [place], [place] [address]Dr. Inessatracy Chato Anion gap [Moles/Vol] 11.5 mmol/L Normal [facility] Comment on above: Performed By: #### B KEYCASE ASSEMBLER, CMP ####[facility] Rfcwehzxut813246 [address] [place], [place] [address]Dr. Swathi Reis AST [Catalytic activity/Vol] 12 U/L Critically low 15-37 [facility] Comment on above: Performed By: #### B KEYCASE ASSEMBLER, CMP ####[facility] Uwnisaskpq29224[address] [place], [place] [address]Dr. Swathi Reis Bilirubin [Mass/Vol] 0.7 mg/dL Normal 0.2-1.0 [facility] Comment on above: Performed By: #### B KEYCASE ASSEMBLER, CMP ####[facility] Tkddwjmzsi0067[address] [place], [place] [address]Dr. Swathi Reis Calcium [Mass/Vol] 8.6 mg/dL Normal 8.5-10.1 [facility] Comment on above: Performed By: #### B KEYCASE ASSEMBLER, CMP ####[facility] Ezpoknravp255346 [address] [place], [place] [address]Dr. Swathi Reis Chloride [Moles/Vol] 104 mmol/L Normal 98-107 [facility] Comment on above: Performed By: #### B KEYCASE ASSEMBLER, CMP ####[facility] Wmlnovieth765[address] [place], [place] [address]Dr. Swathi Reis CO2 [Moles/Vol] 26.6 mmol/L Normal 21.0-32.0 [facility] Comment on above: Performed By: #### B KEYCASE ASSEMBLER, CMP ####[facility] Gnqxguwnfr3559[address] [place], [place] [address]Dr. Swathi Reis Creatinine [Mass/Vol] 1.56 mg/dL Critically high 0.55-1.02 [facility] Comment on above: Performed By: #### B KEYCASE ASSEMBLER, CMP ####[facility] Kubeagsige5023[address] [place], [place] [address]Dr. Swathi Chato EGFR-AF BAHRAINI 39 mL/min/1.73m2 Critically low >=60 [facility] Comment on above: Performed By: #### B KEYCASE ASSEMBLER, CMP ####[facility] Mqiobdujuy698246 [address] [place], [place] [address]Dr. Inessatracy Chato EGFR-NON AF BAHRAINI 32 mL/min/1.73m2 Critically low >=60 [facility] Comment on above: Performed By: #### B KEYCASE ASSEMBLER, CMP ####[facility] Cvznpfmqdj2794 [place] [address]Dr. Swathi Reis Globulin (S) [Mass/Vol] 3.7 g/dL Normal [facility] Comment on above: Performed By: #### B KEYCASE ASSEMBLER, CMP ####[facility] Fulqqoeigu7150 [place] [address]Dr. Swathi Reis Glucose [Mass/Vol] 149 mg/dL Critically high 74-106 [facility] Comment on above: Performed By: #### B KEYCASE ASSEMBLER, CMP ####[facility] Sfumzsfcex182[address] [place], [place] [address]Dr. Swathi Reis Potassium [Moles/Vol] 3.1 mmol/L Critically low 3.5-5.1 [facility] Comment on above: Performed By: #### B KEYCASE ASSEMBLER, CMP ####[facility] Gfqbhqbsex524[address] [place], [place] [address]Dr. Swathi Reis Protein [Mass/Vol] 6.2 g/dL Critically low 6.4-8.2 [facility] Comment on above: Performed By: #### B KEYCASE ASSEMBLER, CMP ####[facility] Attvekuklo416346 [address] [place], [place] [address]Dr. Swathi Reis Sodium [Moles/Vol] 139 mmol/L Normal 136-145 [facility] Comment on above: Performed By: #### B KEYCASE ASSEMBLER, CMP ####[facility] Icmsghqyky664346 [address] [place], [place] [address]Dr. Swathi Reis Urea nitrogen [Mass/Vol] 19.0 mg/dL Critically high 7.0-18.0 [facility] Comment on above: Performed By: #### B KEYCASE ASSEMBLER, CMP ####[facility] Yflxvwlnih646[address] [place], [place] [address]Dr. Swathi Reis Urea nitrogen/Creatinine [Mass ratio] 12.2 mg/mg [facility] Comment on above: Performed By: #### B KEYCASE ASSEMBLER, CMP ####[facility] Dmxcyjzkee8295[address] [place], [place] [address]Dr. Swathi Reis BNPon 07-06-2022 Natriuretic peptide B (Bld) [Mass/Vol] 4734.0 pg/mL Critically high <=1,800.0 [facility] Comment on above: Performed By: #### B KEYCASE ASSEMBLER, CMP ####[facility] Vikedjctdp8439[address] [place], [place] [address]Dr. Swathi Reis CBC AUTO DIFFon 07-06-2022 BASO # 0.0 103/ul Normal 0.0-0.1 [facility] Comment on above: Performed By: #### C BC ####[facility] Lkmyeaubop4910[address] [place], [place] [address]Dr. Swathi Chato Basophils/100 WBC (Bld) 0.3 % Normal 0.2-2.0 [facility] Comment on above: Performed By: #### C BC ####[facility] Nlhejwynqb5[address] [place], [place] [address]Dr. Swathi Reis EO # 0.0 103/ul Normal 0.0-0.7 [facility] Comment on above: Performed By: #### C BC ####[facility] Kbtdomtqkf6739[address] [place], [place] [address]Dr. Swathi Reis Eosinophils/100 WBC (Bld) 0.1 % Critically low 0.9-7.0 [facility] Comment on above: Performed By: #### C BC ####[facility] Yoojwyxhoh60[address] [place], [place] [address]Dr. Swathi Reis Erythrocyte distribution width (RBC) [Ratio] 13.5 % Normal 11.0-15.0 [facility] Comment on above: Performed By: #### C BC ####[facility] Cadhgllbpa[address] [place], [place] [address]Dr. Swathi Reis Hematocrit (Bld) [Volume fraction] 29.6 % Critically low 36.0-48.0 [facility] Comment on above: Performed By: #### C BC ####[facility] Emcydhxlox965[address] [place], [place] [address]Dr. Swathi Reis Hemoglobin (Bld) [Mass/Vol] 9.6 g/dL Critically low 12.0-16.0 [facility] Comment on above: Performed By: #### C BC ####[facility] Mdetmvceth8861 [place] [id number]. Swathi Reis IG # 0.07 10e3/ul Critically high 0.00-0.03 [facility] Comment on above: Performed By: #### C BC ####[facility] Rrobxpcbjs7613 [place] [id number]. Inessatracy Reis IG % 0.5 % Normal 0.0-0.5 [facility] Comment on above: Performed By: #### C BC ####[facility] Btpigyogtl[address] [place] [address]Dr. Inessatracy Chato LYMPH # 1.4 103/ul Normal 1.2-3.8 [facility] Comment on above: Performed By: #### C BC ####[facility] Tplrjtgedc28[address] [place] [address]Dr. Swathi Reis Lymphocytes/100 WBC (Bld) 9.7 % Critically low 20.5-60.0 [facility] Comment on above: Performed By: #### C BC ####[facility] Htizxemoxq16[address] [place] [address]Dr. Inessatracy Reis MANUAL DIFF REQ NO Normal [facility] Comment on above: Performed By: #### C BC ####[facility] Uypzkbhrqq7161 [place] [address]Dr. Swathi Reis MCH (RBC) [Entitic mass] 29.9 pg Normal 26.7-34.0 [facility] Comment on above: Performed By: #### C BC ####[facility] Axnzpyoysv4171 [place] [address]Dr. Swathi Reis MCHC (RBC) [Mass/Vol] 32.4 g/dL Normal 29.9-35.2 [facility] Comment on above: Performed By: #### C BC ####[facility] Augbgrsgnc4[address] [place] [address]Dr. Swathi Reis MCV (RBC) [Entitic vol] 92.2 fL Normal 81.0-99.0 [facility] Comment on above: Performed By: #### C BC ####[facility] Tkioxeczei4201 [place] [id number]. Swathi Reis MONO # 1.3 103/ul Critically high 0.3-0.8 [facility] Comment on above: Performed By: #### C BC ####[facility] Vrbkbweywq6828 [place] [id number]. Swathi Reis Monocytes/100 WBC (Bld) 9.4 % Normal 1.7-12.0 [facility] Comment on above: Performed By: #### C BC ####[facility] Ogqvugmrep7455 [place] [phone]. Swathi Reis NEUT # 11.4 103/ul Critically high 1.4-6.5 The [facility] Comment on above: Performed By: #### C BC ####[facility] Mjduefgqna8175 [place] [id number]. Swathi Reis Neutrophils/100 WBC (Bld) 80.0 % Critically high 43.0-75.0 [facility] Comment on above: Performed By: #### C BC ####[facility] Simjorwcir9789 [place] [phone]. Swathi Reis Platelet mean volume (Bld) [Entitic vol] 10.6 fL Normal 9.5-13.5 [facility] Comment on above: Performed By: #### C BC ####[facility] Ppajkhnqda4106 [place] [phone]. Swathi Reis PLT 283 103/ul Normal 150-450 [facility] Comment on above: Performed By: #### C BC ####[facility] Usvcxjgivh1818 [place] [phone]. Swathi Reis RBC 3.21 106/ul Critically low 4.20-5.40 [facility] Comment on above: Performed By: #### C BC ####[facility] Krqwbapbxe0455 [place] [phone]. Swathi Reis WBC 14.2 103/ul Critically high 4.0-11.0 The [facility] Comment on above: Performed By: #### C BC ####[facility] Gzlxwuydyp1610 [place] [address]Dr. Swathi Reis ECHOCARDIO M/2D COMPLETEon ECHOCARDIO M/2D COMPLETE Normal [facility] POINT OF CARE GLUCOSEon 06-23 Glucose [Mass/Vol] 227 mg/dL Critically high 74-106 [facility] Comment on above: Performed By: #### P OCGLUC ####[facility] Kbnnyvcxrq[address] [place], [place] [address]Dr. Swathi Reis Glucose [Mass/Vol] 175 mg/dL Critically high 74-106 [facility] Comment on above: Performed By: #### P OCGLUC ####[facility] Gjqsvvseup[address] [place], [place] [address]Dr. Swathi Reis PROF 14(COMP METB)on 022 Albumin [Mass/Vol] 2.6 g/dL Critically low 3.4-5.0 [facility] Comment on above: Performed By: #### B KEYCASE ASSEMBLER, CMP ####[facility] Vfztitwqey9414[address] [place], [place] [address]Dr. Swathi Reis Albumin/Globulin [Mass ratio] 0.7 {ratio} Normal [facility] Comment on above: Performed By: #### B KEYCASE ASSEMBLER, CMP ####[facility] Wnsdzmwsos9[address] [place], [place] [address]Dr. Swathi Reis ALP [Catalytic activity/Vol] 79 U/L Normal 46-116 [facility] Comment on above: Performed By: #### B KEYCASE ASSEMBLER, CMP ####[facility] Yxuwgaumbt50264[address] [place], [place] [address]Dr. Swathi Reis ALT [Catalytic activity/Vol] 17 U/L Normal 14-59 [facility] Comment on above: Performed By: #### B KEYCASE ASSEMBLER, CMP ####[facility] Hdusdwnzxa0513[address] [place], [place] [address]Dr. Swathi Reis Anion gap [Moles/Vol] 11.5 mmol/L Normal [facility] Comment on above: Performed By: #### B KEYCASE ASSEMBLER, CMP ####[facility] Xchxarmqkq667[address] [place], [place] [address]Dr. Swathi Reis AST [Catalytic activity/Vol] 11 U/L Critically low 15-37 [facility] Comment on above: Performed By: #### B KEYCASE ASSEMBLER, CMP ####[facility] Qwmgkzznxk677[address] [place], [place] [address]Dr. Swathi Reis Bilirubin [Mass/Vol] 0.9 mg/dL Normal 0.2-1.0 [facility] Comment on above: Performed By: #### B KEYCASE ASSEMBLER, CMP ####[facility] Unamkfurao9932[address] [place], [place] [address]Dr. Swathi Reis Calcium [Mass/Vol] 8.3 mg/dL Critically low 8.5-10.1 [facility] Comment on above: Performed By: #### B KEYCASE ASSEMBLER, CMP ####[facility] Tvuovzxcai3818[address] [place], [place] [address]Dr. Swathi Reis Chloride [Moles/Vol] 102 mmol/L Normal 98-107 [facility] Comment on above: Performed By: #### B KEYCASE ASSEMBLER, CMP ####[facility] Wuqahchatr9568[address] [place], [place] [address]Dr. Swathi Reis CO2 [Moles/Vol] 29.5 mmol/L Normal 21.0-32.0 The [facility] Comment on above: Performed By: #### B KEYCASE ASSEMBLER, CMP ####[facility] Wcqhfdgipr014[address] [place], [place] [address]Dr. Swathi Reis Creatinine [Mass/Vol] 1.47 mg/dL Critically high 0.55-1.02 [facility] Comment on above: Performed By: #### B KEYCASE ASSEMBLER, CMP ####[facility] Gpedkpfwzc5535[address] [place], [place] [address]Dr. Swathi Reis EGFR-AF BAHRAINI 42 mL/min/1.73m2 Critically low >=60 [facility] Comment on above: Performed By: #### B KEYCASE ASSEMBLER, CMP ####[facility] Cnthowsshq7[address] [place], [place] [address]Dr. Swathi Reis EGFR-NON AF BAHRAINI 34 mL/min/1.73m2 Critically low >=60 [facility] Comment on above: Performed By: #### B KEYCASE ASSEMBLER, CMP ####[facility] Fgppxbwlsq7669 [place] [address]Dr. Swathi Reis Globulin (S) [Mass/Vol] 3.7 g/dL Normal [facility] Comment on above: Performed By: #### B KEYCASE ASSEMBLER, CMP ####[facility] Zmkgvxyhew9265[address] [place], [place] [address]Dr. Swathi Reis Glucose [Mass/Vol] 150 mg/dL Critically high 74-106 [facility] Comment on above: Performed By: #### B KEYCASE ASSEMBLER, CMP ####[facility] Inmymugied6360[address] [place], [place] [address]Dr. Swathi Reis Potassium [Moles/Vol] 3.0 mmol/L Critically low 3.5-5.1 [facility] Comment on above: Performed By: #### B KEYCASE ASSEMBLER, CMP ####[facility] Nkgmhqzqwp6899[address] [place], [place] [address]Dr. Swathi eRis Protein [Mass/Vol] 6.3 g/dL Critically low 6.4-8.2 [facility] Comment on above: Performed By: #### B KEYCASE ASSEMBLER, CMP ####[facility] Yyqfacnpgo3295[address] [place], [place] [address]Dr. Swathi Reis Sodium [Moles/Vol] 140 mmol/L Normal 136-145 [facility] Comment on above: Performed By: #### B KEYCASE ASSEMBLER, CMP ####[facility] Wvnmkeuglo519[address] [place], [place] [address]Dr. Swathi Reis Urea nitrogen [Mass/Vol] 16.0 mg/dL Normal 7.0-18.0 [facility] Comment on above: Performed By: #### B KEYCASE ASSEMBLER, CMP ####[facility] Dfxhediygf75224[address] [place], [place] [address]Dr. Inessatracy Chato Urea nitrogen/Creatinine [Mass ratio] 10.9 mg/mg Normal [facility] Comment on above: Performed By: #### B KEYCASE ASSEMBLER, CMP ####[facility] Zusrmzirhj8[address] [place], [place] [address]Dr. Inessatracy Chato XR CHEST 2 Von 07-06-2022 XR CHEST 2 V Normal [facility] BLOOD GASES BTYon 07-05-2022 02 MODE NASAL CANNULA Normal [facility] Comment on above: Performed By: #### A BG ####[facility] Vkbbgueyag5867 [place] [address]Dr. Swathi Reis ALLENS TEST Positive Normal [facility] Comment on above: Performed By: #### A BG ####[facility] Dtzauorwuv0996 [place] [address]Dr. Swathi Reis Base excess Calc (Bld) [Moles/Vol] 3.1 mmol/L Critically high -2.0-2.0 [facility] Comment on above: Performed By: #### A BG ####[facility] Nchnnbnczd2764[address] [place], [place] [address]Dr. Swathi Reis BIPAP PRESSURE [facility] Comment on above: Performed By: #### A BG ####[facility] Fwivbbvlsy[address] [place], [place] [address]Dr. Swathi Reis CPAP [facility] Comment on above: Performed By: #### A BG ####[facility] Kxnmrclzlj25[address] [place], [place] [address]Dr. Swathi Reis FIO2 Normal [facility] Comment on above: Performed By: #### A BG ####[facility] Jmzwikrhgc4612[address] [place], [place] [address]Dr. Swathi Reis HCO3 (Bld) [Moles/Vol] 27.0 mmol/L Critically high 22.0-26 .0 [facility] Comment on above: Performed By: #### A BG ####[facility] Vbqixjvokh[address] [place], [place] [address]Dr. Swathi Reis LPM 5 Normal [facility] Comment on above: Performed By: #### A BG ####[facility] Uviflxlhgc[address] [place], [place] [address]Dr. Swathi Reis MINUTE VOLUME Normal [facility] Comment on above: Performed By: #### A BG ####[facility] Afrcdutjen934[address] [place], [place] [address]Dr. Swathi Reis Oxygen (Bld) [Partial pressure] 71.4 mm[Hg] Critically low 80.0-100.0 [facility] Comment on above: Performed By: #### A BG ####[facility] Kvrqrrhgch5049 [place] [address]Dr. Swathi Reis Oxygen saturation in Blood 95.5 % Normal 95.0-100.0 [facility] Comment on above: Performed By: #### A BG ####[facility] Zbmquajnlr5574 [place] [address]Dr. Swathi Reis PCO2 40.2 mmHg Normal 35.0-45.0 [facility] Comment on above: Performed By: #### A BG ####[facility] Ggstvjcjkl1789 [place] [address]Dr. Swathi Reis PEEP [facility] Comment on above: Performed By: #### A BG ####[facility] Muzcrbgelm2269 [place] [address]Dr. Swathi Reis pH (Bld) 7.440 [pH] Normal 7.350-7.450 [facility] Comment on above: Performed By: #### A BG ####[facility] Tbjjxnojpz99[address] [place], [place] [address]Dr. Swathi Reis PIP [facility] Comment on above: Performed By: #### A BG ####[facility] Cpjzjehkin[address] [place], [place] [address]Dr. Swathi Reis PS [facility] Comment on above: Performed By: #### A BG ####[facility] Tndvadnjga[address] [place], [place] [address]Dr. Swathi Reis PUNCTURE SITE RR Normal [facility] Comment on above: Performed By: #### A BG ####[facility] Plxiyaacil7019 [place] [address]Dr. Swathi Reis RATE [facility] Comment on above: Performed By: #### A BG ####[facility] Fczsclbulk[address] [place], [place] [address]Dr. Swathi Reis VENT MODE [facility] Comment on above: Performed By: #### A BG ####[facility] Jqaydetrvp7[address] [place], [place] [address]Dr. Swathi Reis [place] Normal [facility] Comment on above: Performed By: #### A BG ####[facility] Bybjnretrl9809 [place] [address]Dr. Swathi Reis BNPon 07-05-2022 Natriuretic peptide B (Bld) [Mass/Vol] 2257.0 pg/mL Critically high <=1,800.0 [facility] Comment on above: Performed By: #### H STROPN, CMP, BNP ####[facility] Ivtewxdpzf4563 [place] [address]Dr. Swathi Reis CARDIAC TRINA 3-6on 2 CK [Catalytic activity/Vol] 54 U/L Normal 26-192 [facility] Comment on above: Performed By: #### C MREP ####[facility] Sswhuiateg4901 [place] [address]Dr. Swathi Reis CK.MB [Mass/Vol] ng/mL Normal <=3.60 [facility] Comment on above: Performed By: #### C MREP ####[facility] Mrwecydsdx5649 [place] [address]Dr. Swathi Reis HSTROP 18.6 pg/mL Normal 4.0-51.3 [facility] Comment on above: Result Comment: CUT- OFF POINTS HAVE BEEN ESTABLISHED BASED ON THE FOURTH UNIVERSAL DEFINITIONS OF MYOCARDIALINFARCTION. THE UPPER REFERENCE LIMIT (URL) OF TROPONIN, DEFINED THE 99TH PERCENTILE OFcTnI DISTRIBUTION IN A REFERENCE POPULATION, HAS BEEN CONFIRMED THE DECISION THRESHOLDFOR PA DIAGNOSIS. Performed By: #### C MREP ####[facility] Owqegpiwcd6039 [place] [address]Dr. Swathi Reis CK [Catalytic activity/Vol] 38 U/L Normal 26-192 [facility] Comment on above: Performed By: #### C MREP ####[facility] Euykiahrsb5918 [place] [address]Dr. Swathi Reis CK.MB [Mass/Vol] 0.51 ng/mL Normal <=3.60 [facility] Comment on above: Performed By: #### C MREP ####[facility] Bovulptwab6753 [place] [address]Dr. Swathi Reis HSTROP 16.6 pg/mL Normal 4.0-51.3 [facility] Comment on above: Result Comment: CUT- OFF POINTS HAVE BEEN ESTABLISHED BASED ON THE FOURTH UNIVERSAL DEFINITIONS OF MYOCARDIALINFARCTION. THE UPPER REFERENCE LIMIT (URL) OF TROPONIN, DEFINED THE 99TH PERCENTILE OFcTnI DISTRIBUTION IN A REFERENCE POPULATION, HAS BEEN CONFIRMED THE DECISION THRESHOLDFOR PA DIAGNOSIS. Performed By: #### C MREP ####[facility] Abrckeslrk0301 [place] [address]Dr. Swathi Reis CBC W MANUAL DIFFon 07-05-20 22 ATYPICAL LYMPH # Normal [facility] Comment on above: Performed By: #### C NGA ####[facility] Onihbszphw7951 [place] [address]Dr. Swathi Reis ATYPICAL LYMPH % Normal [facility] Comment on above: Performed By: #### C NGA ####[facility] Wktrfzwcay9510 [place] [address]Dr. Swathi Reis BAND # 0.4 103/ul Critically high 0.0-0.3 [facility] Comment on above: Performed By: #### C NGA ####[facility] Kmwoogjzwk9546 [place] [address]Dr. Swathi Reis BAND % 2 % Normal 0-5 [facility] Comment on above: Performed By: #### C NGA ####[facility] Hptaisziha7119 [place] [address]Dr. Swathi Reis BASOM # 0.00 103/ul Normal 0.00-0.10 [facility] Comment on above: Performed By: #### C NGA ####[facility] Ssjahfjsvo9120 [place] [address]Dr. Swathi Reis BASOM % 0.0 % Critically low 0.2-2.0 The [facility] Comment on above: Performed By: #### C NGA ####[facility] Rfsouycjyz2834 [place] [address]Dr. Swathi Reis BLAST # Normal [facility] Comment on above: Performed By: #### C NGA ####[facility] Wikgkndofr5401 [place], [place] [address]Tj. Swathi Reis BLAST % Normal [facility] Comment on above: Performed By: #### C NGA ####[facility] Scuaispiyy8511 [place], [place] [address]Mj. Swathi Reis CORRECTED WBC Normal 4.0-11.0 [facility] Comment on above: Performed By: #### C NGA ####[facility] Aeabrwjhsa6487 [place] [phone]. Swathi Reis EOS # 0.00 103/ul Normal 0.00-0.70 [facility] Comment on above: Performed By: #### C NGA ####[facility] Prqieoryev2392 [place] [id number]. Swathi Reis EOS% 0.0 % Critically low 0.9-7.0 [facility] Comment on above: Performed By: #### C NGA ####[facility] Tgcrkwtbyq1538 [place] [phone]. Swathi Reis HCT 32.7 % Critically low 36.0-48.0 [facility] Comment on above: Performed By: #### C NGA ####[facility] Tzivdgfutu9757 [place] [phone]. Swathi Reis HGB 10.6 g/dl Critically low 12.0-16.0 [facility] Comment on above: Performed By: #### C NGA ####[facility] Ontoqtsjla5089 [place] [phone]. Swathi Reis LYMPHM # 0.84 103/ul Critically low 1.20-3.80 [facility] Comment on above: Performed By: #### C NGA ####[facility] Yxfjfiogfl7784 [place] [id number]. Swathi Reis LYMPHM% 4.0 % Critically low 20.5-60.0 [facility] Comment on above: Performed By: #### C NGA ####[facility] Savfeyefmp5871 [place] [phone]. Swathi Reis MCH 30.1 pg Normal 26.7-34.0 [facility] Comment on above: Performed By: #### C NGA ####[facility] Aahzgcmens0474 [place] [phone]. Swathi Reis MCHC 32.4 g/dl Normal 29.9-35.2 [facility] Comment on above: Performed By: #### C NGA ####[facility] Sfbabpabcn9283 [place] [id number]. Swathi Reis MCV 92.9 fL Normal 81.0-99.0 [facility] Comment on above: Performed By: #### C NGA ####[facility] Ybjvxxzcaw[address] [place], [place] [address]Dr. Swathi Reis METAMYELOCYTE # Normal [facility] Comment on above: Performed By: #### C NGA ####[facility] Pymteijtri030[address] [place], [place] [address]Dr. Swathi Reis METAMYELOCYTE % Normal [facility] Comment on above: Performed By: #### C NGA ####[facility] Zbhrjaroyj86[address] [place], [place] [address]Dr. Swathi Reis MONOM# 1.88 103/ul Critically high 0.30-0.80 The [facility] Comment on above: Performed By: #### C NGA ####[facility] Ieyaywmxrk7[address] [place], [place] [address]Dr. Swathi Reis MONOM% 9.0 % Normal 1.7-12.0 [facility] Comment on above: Performed By: #### C NGA ####[facility] Fjnytzixvc7271 [place] [address]Dr. Swathi Reis MPV 10.6 fL Normal 9.5-13.5 [facility] Comment on above: Performed By: #### C NGA ####[facility] Bxkjbgselm08[address] [place], [place] [address]Dr. Swathi Reis MYELOCYTE # Normal [facility] Comment on above: Performed By: #### C NGA ####[facility] Dasossajnv5404 [place], [place] [address]Ga. Swathi Reis MYELOCYTE % Normal [facility] Comment on above: Performed By: #### C BCYUN ####[facility] Cxqnvuuqto8319 [place], [place] [address]Kl. Swathi Reis NRBC Normal [facility] Comment on above: Performed By: #### C NGA ####[facility] Eqytwdxuhx8379 [place], [place] [address]Py. Swathi Reis PLT 335 103/ul Normal 150-450 [facility] Comment on above: Performed By: #### C NGA ####[facility] Otyykzosmk7586 [place], [place] [address]Fl. Swathi Reis RBC 3.52 106/ul Critically low 4.20-5.40 [facility] Comment on above: Performed By: #### C NGA ####[facility] Zdhasnlytu2862 [place] [id number]. Swathi Reis RDW 13.5 % Normal 11.0-15.0 [facility] Comment on above: Performed By: #### C NGA ####[facility] Cqisrmzdsk7149 [place] [id number]. Swathi Reis SEG # 17.76 103/ul Critically high 1.40-6.50 [facility] Comment on above: Performed By: #### C NGA ####[facility] Ustepnpvuk1472 [place] [id number]. Swathi Reis SEG % 85.0 % Critically high 43.0-75.0 [facility] Comment on above: Performed By: #### C NGA ####[facility] Jwjeswqnqo3227 [place], [place] [address]Pm. Swathi Reis WBC 20.9 103/ul Critically high 4.0-11.0 The [facility] Comment on above: Performed By: #### C NGA ####[facility] Vycsifjlqb5552 [place] [phone]. Swathi Reis CTA CHEST WO W CONon 07-05- 022 CTA CHEST WO W CON Normal [facility] CULTURE BLOODon 07-05-2022 Microscopic examination of blood, culture Culture Observations: NO GROWTH AT 5 DAYS. Normal [facility] Comment on above: Performed By: #### B LDCX2 ####[facility] Jmhbkrewhm3804 [place] [address]Dr. Swathi Reis Microscopic examination of blood, culture Culture Observations: NO GROWTH AT 5 DAYS. Normal [facility] Comment on above: Performed By: #### B LDCX1 ####[facility] Auusbboqsj6553 [place] [address]Dr. Swathi Reis Covid-19 PCR (CVDTB)on 06-23 SARS-CoV-2 (COVID-19) RNA ÓSCAR+probe Ql (Unsp spec) Not detected Normal NOT DETECTED [facility] Comment on above: Result Comment: When [...] for this test is supported by the [employer] of [employer] and Human Service's declaration [...] be used). Performed By: #### C VDTBH ####[facility] Hsxrhwafko9763 [place] [address]Dr. Swathi Reis D-DIMERon 07-05-2022 D-DIMER 2.17 mg/L FEU Critically high <=0.59 The [facility] Comment on above: Performed By: #### P T, DDIM, PTT ####[facility] Ivbknnmsfc2943 [place] [address]DrOtto Reis D-DIMER COMMENTS SEE BELOW Normal [facility] Comment on above: Result Comment: Incr [...] Performed By: #### P T, DDIM, PTT ####[facility] Olexekuktd5860 [place] [address]DrOtto Reis LACTATE/LACTIC ACIDon 2021 Lactate [Moles/Vol] 2.5 mmol/L Critically high 0.4-1.9 [facility] Comment on above: Performed By: #### L ACT ####[facility] Nrnnwuugoz[address] [place], [place] [address]DrOtto Reis Lactate [Moles/Vol] 3.2 mmol/L Critically high 0.4-1.9 [facility] Comment on above: Performed By: #### L ACT ####[facility] Ytorutbwuf[address] [place], [place] [address]DrOtto Reis POINT OF CARE GLUCOSEon 06-23 Glucose [Mass/Vol] 179 mg/dL Critically high 74-106 T [facility] Comment on above: Performed By: #### P OCGLUC ####[facility] Coadjglphv[address] [place], [place] [address]DrOtto Reis PROF 14(COMP METB)on 022 Albumin [Mass/Vol] 3.2 g/dL Critically low 3.4-5.0 Th [facility] Comment on above: Performed By: #### H STROPN, CMP, BNP ####[facility] Puirxqxrvr8012 [place] [address]DrOtto Reis Albumin/Globulin [Mass ratio] 0.8 {ratio} Normal [facility] Comment on above: Performed By: #### H STROPN, CMP, BNP ####[facility] Nwjjlrrrcw0182 [place] [address]Dr. Swathi Reis ALP [Catalytic activity/Vol] 98 U/L Normal 46-116 [facility] Comment on above: Performed By: #### H STROPN, CMP, BNP ####[facility] Czveagebis6444 [place] [address]Dr. Swathi Reis ALT [Catalytic activity/Vol] 18 U/L Normal 14-59 [facility] Comment on above: Performed By: #### H STROPN, CMP, BNP ####[facility] Etjvinttlm5031 [place] [address]Dr. Swathi Reis Anion gap [Moles/Vol] 11.5 mmol/L Normal e [facility] Comment on above: Performed By: #### H STROPN, CMP, BNP ####[facility] [facility] [address]mbgulc[address] [place] [address]Dr. Swathi Reis AST [Catalytic activity/Vol] 16 U/L Normal 15-37 [facility] Comment on above: Performed By: #### H STROPN, CMP, BNP ####[facility] Wmhragfxke[address] [place] [address]Dr. Swathi Reis Bilirubin [Mass/Vol] 0.7 mg/dL Normal 0.2-1.0 [facility] Comment on above: Performed By: #### H STROPN, CMP, BNP ####[facility] Lysnvnhgpz[address] [place] [address]Dr. Swathi Reis Calcium [Mass/Vol] 9.3 mg/dL Normal 8.5-10.1 [facility] Comment on above: Performed By: #### H STROPN, CMP, BNP ####[facility] Bloykulqcs[address] [place] [address]Dr. Swathi Reis Chloride [Moles/Vol] 100 mmol/L Normal 98-107 [facility] Comment on above: Performed By: #### H STROPN, CMP, BNP ####[facility] Wiholvdnym25[address] [place] [address]Dr. Swathi Reis CO2 [Moles/Vol] 29.5 mmol/L Normal 21.0-32.0 [facility] Comment on above: Performed By: #### H STROPN, CMP, BNP ####[facility] Paqybbgtsy[address] [place] [address]Dr. Swathi Reis Creatinine [Mass/Vol] 1.66 mg/dL Critically high 0.55-1.02 [facility] Comment on above: Performed By: #### H STROPN, CMP, BNP ####[facility] Byhofvljrc[address] [place], [place] [address]Dr. Swathi Reis EGFR-AF BAHRAINI 36 mL/min/1.73m2 Critically low >=60 [facility] Comment on above: Performed By: #### H STROPN, CMP, BNP ####[facility] Xqaik[address]lrr[address] [place], [place] [address]Dr. Swathi Reis EGFR-NON AF BAHRAINI 30 mL/min/1.73m2 Critically low >=60 [facility] Comment on above: Performed By: #### H STROPN, CMP, BNP ####[facility] Nwpomttypp[address] [place], [place] [address]Dr. Swathi Reis Globulin (S) [Mass/Vol] 4.0 g/dL Normal [facility] Comment on above: Performed By: #### H STROPN, CMP, BNP ####[facility] Blfxvvoqkf[address] [place] [address]Dr. Swathi Reis Glucose [Mass/Vol] 247 mg/dL Critically high 74-106 [facility] Comment on above: Performed By: #### H STROPN, CMP, BNP ####[facility] Rmrtwjvppg48[address] [place] [address]Dr. Swathi Reis Potassium [Moles/Vol] 4.0 mmol/L Normal 3.5-5.1 [facility] Comment on above: Performed By: #### H STROPN, CMP, BNP ####[facility] Aqrqfxcgqj8[address] [place] [address]Dr. Swathi Reis Protein [Mass/Vol] 7.2 g/dL Normal 6.4-8.2 [facility] Comment on above: Performed By: #### H STROPN, CMP, BNP ####[facility] Appmuuiupl76[address] [place] [address]Dr. Swathi Reis Sodium [Moles/Vol] 137 mmol/L Normal 136-145 [facility] Comment on above: Performed By: #### H STROPN, CMP, BNP ####[facility] Hspkidkbtp0569 [place] [address]Dr. Swathi Reis Urea nitrogen [Mass/Vol] 22.0 mg/dL Critically high 7.0-18.0 [facility] Comment on above: Performed By: #### H STROPN, CMP, BNP ####[facility] Djzhwulfrs1397 [place] [address]Dr. Swathi Reis Urea nitrogen/Creatinine [Mass ratio] 13.3 mg/mg Normal [facility] Comment on above: Performed By: #### H STROPN, CMP, BNP ####[facility] Sjxuqfoxvl359[address] [place], [place] [address]Dr. Swathi Reis PROTIMEon 07-05-2022 INR Coag (PPP) [Relative time] 1.10 {INR} Normal [facility] Comment on above: Performed By: #### P T, DDIM, PTT ####[facility] Kpfozqkqik[address] [place], [place] [address]Dr. Swathi Reis INR GUIDELINES SEE BELOW Normal [facility] Comment on above: Result Comment: HARRIETT RED INR: 2.0 - 3.0 CONDITIONS NOT LISTED BELOW 2.5 - 3.5 FOR PROSTHETIC HEART VALVE REPLACEMENT 2.5 - 3.5 RECURRENT THROMBOSIS Performed By: #### P T, DDIM, PTT ####[facility] Wviqbgnwky[address] [place], [place] [address]Dr. Swathi Reis PT Coag (PPP) [Time] 11.8 s Critically high 9.0-11.6 [facility] Comment on above: Performed By: #### P T, DDIM, PTT ####[facility] Ovvmfpoxbz65[address] [place], [place] [address]Dr. Swathi Reis PTTon 07-05-2022 aPTT Coag (Bld) [Time] 27.2 s Normal 22.3-36.2 Th e [facility] Comment on above: Performed By: #### P T, DDIM, PTT ####[facility] Vixjujnwye[address] [place], [place] [address]Yc. Swathi Reis TROPONIN, HIGH SENSITIVITYon 07-05-2022 HSTROP 16.2 pg/mL Normal 4.0-51.3 [facility] Comment on above: Result Comment: CUT- OFF POINTS HAVE BEEN ESTABLISHED BASED ON THE FOURTH UNIVERSAL DEFINITIONS OF MYOCARDIALINFARCTION. THE UPPER REFERENCE LIMIT (URL) OF TROPONIN, DEFINED THE 99TH PERCENTILE OFcTnI DISTRIBUTION IN A REFERENCE POPULATION, HAS BEEN CONFIRMED THE DECISION THRESHOLDFOR PA DIAGNOSIS. Performed By: #### H STROPN, CMP, BNP ####[facility] Tjvkohoqms22[address] [place], [place] [address]Tu. Swathi Reis XR CHEST 1 Von 07-05-2022 XR CHEST 1 V Normal [facility] MRI WRIST LT WO CONon 2021 MRI WRIST LT WO CON Normal [facility] XR ANKLE LT MIN 3 Von 2021 XR ANKLE LT MIN 3 V Normal [facility] XR WRIST LT MIN 3 Von 2021 XR WRIST LT MIN 3 V Normal [facility] Progress Noteson 05-19-2022 [employer] Worker Authentication Interface Message Text EMERGENCY TRIAGE, TREAT AND TRANSPORT (ET3) DOCUMENTATION OF TELEHEALTH VISIT Date / Time: 05/19/2022 / 1130 Name: Andrew Barros : 1945 SSN: (Not on file) EMS Agency: [facility] [x] Verbal consent obtained [] [...] Completed by: Kristian Mcwilliams MD Normal [facility] CBC AUTO DIFFon 05-07-2022 BASO # 0.1 103/ul Normal 0.0-0.1 [facility] Comment on above: Performed By: #### C BC ####[facility] Qfwuaaqmcx0375 [place] [address]Dr. Swathi Reis Basophils/100 WBC (Bld) 0.5 % Normal 0.2-2.0 [facility] Comment on above: Performed By: #### C BC ####[facility] Cymtfntens8[address] [place] [address]Dr. Swathi Reis EO # 0.1 103/ul Normal 0.0-0.7 [facility] Comment on above: Performed By: #### C BC ####[facility] Vvakqgswfc9561 [place] [address]Dr. Swathi Reis Eosinophils/100 WBC (Bld) 1.1 % Normal 0.9-7.0 [facility] Comment on above: Performed By: #### C BC ####[facility] Bvjexfwkre8986 [place] [address]DrOtto Reis Erythrocyte distribution width (RBC) [Ratio] 13.2 % Normal 11.0-15.0 [facility] Comment on above: Performed By: #### C BC ####[facility] Kqjwqvbsov3302 [place] [address]Dr. Swathi Reis Hematocrit (Bld) [Volume fraction] 40.9 % Normal 36.0-48.0 [facility] Comment on above: Performed By: #### C BC ####[facility] Jalxcjowpv7[address] [place] [address]Dr. Swathi Reis Hemoglobin (Bld) [Mass/Vol] 12.8 g/dL Normal 12.0-16.0 [facility] Comment on above: Performed By: #### C BC ####[facility] Vkdmprjvyn0519 [place] [address]Dr. Swathi Reis IG # 0.04 10e3/ul Critically high 0.00-0.03 [facility] Comment on above: Performed By: #### C BC ####[facility] Isherieada[address] [place], [place] [address]Dr. Swathi Reis IG % 0.4 % Normal 0.0-0.5 [facility] Comment on above: Performed By: #### C BC ####[facility] Qhiqzstohw[address] [place], [place] [address]Dr. Swathi Reis LYMPH # 1.4 103/ul Normal 1.2-3.8 [facility] Comment on above: Performed By: #### C BC ####[facility] Lhgbkijlwg24[address] [place], [place] [address]Dr. Swathi Chato Lymphocytes/100 WBC (Bld) 13.2 % Critically low 20.5-60.0 [facility] Comment on above: Performed By: #### C BC ####[facility] Ibduvnjddy0[address] [place], [place] [address]Dr. Swathi Chato MANUAL DIFF REQ NO Normal [facility] Comment on above: Performed By: #### C BC ####[facility] Heaznrnhgz903[address] [place], [place] [address]Dr. Swathi Reis MCH (RBC) [Entitic mass] 29.5 pg Normal 26.7-34.0 [facility] Comment on above: Performed By: #### C BC ####[facility] Mwritekvel4838 [place] [address]Dr. Swathi Reis MCHC (RBC) [Mass/Vol] 31.3 g/dL Normal 29.9-35.2 [facility] Comment on above: Performed By: #### C BC ####[facility] Elovxdkgkb448[address] [place], [place] [address]Dr. Inessatracy Reis MCV (RBC) [Entitic vol] 94.2 fL Normal 81.0-99.0 [facility] Comment on above: Performed By: #### C BC ####[facility] Mnahrbcdtq[address] [place], [place] [address]Dr. Swathi Reis MONO # 0.9 103/ul Critically high 0.3-0.8 [facility] Comment on above: Performed By: #### C BC ####[facility] Cthwwgcsev[address] [place], [place] [address]Dr. Swathi Reis Monocytes/100 WBC (Bld) 8.9 % Normal 1.7-12.0 [facility] Comment on above: Performed By: #### C BC ####[facility] Preqfbhsel258[address] [place], [place] [address]Dr. Inessatracy Reis NEUT # 7.8 103/ul Critically high 1.4-6.5 [facility] Comment on above: Performed By: #### C BC ####[facility] Jnyhwivxdl4895[address] [place], [place] [address]Dr. Swathi Reis Neutrophils/100 WBC (Bld) 75.9 % Critically high 43.0-75.0 [facility] Comment on above: Performed By: #### C BC ####[facility] Zjsiekovzv34[address] [place], [place] [address]Dr. Swathi Reis Platelet mean volume (Bld) [Entitic vol] 10.7 fL Normal 9.5-13.5 [facility] Comment on above: Performed By: #### C BC ####[facility] Rbmgntmhpf9382 [place], [place] [address]Hp. Swathi Reis PLT 257 103/ul Normal 150-450 [facility] Comment on above: Performed By: #### C BC ####[facility] Pqzbxfheau3715 [place], [place] [address]Mo. Swathi Reis RBC 4.34 106/ul Normal 4.20-5.40 [facility] Comment on above: Performed By: #### C BC ####[facility] Woplanqaaa4921 [place], [place] [address]Lt. Swathi Reis WBC 10.2 103/ul Normal 4.0-11.0 [facility] Comment on above: Performed By: #### C BC ####[facility] Ogicnczsha3633 [place], [place] [address]Gc. Swathi Reis Covid-19 PCR (CVDTBH)on 04-23 SARS-CoV-2 (COVID-19) RNA ÓSCAR+probe Ql (Unsp spec) Not detected Normal NOT DETECTED [facility] Comment on above: Result Comment: This test is not yet approved or cleared by the [place] FDA. When there are no FDA-approved or cleared tests available, and other criteria are met, FDA can make tests available under an emergency access mechanism called an Emergency Use Authorization (EUA). The EUA for this test is supported by the [employer] of Health and Human Service's (HHS's) [...] with SARS-CoV-2. Performed By: #### C VDTBH ####[facility] Feeckamizx9975 [place], [place] [address]Dn. Swathi Reis PROF CHEM 8 (BAS METB)on Anion gap [Moles/Vol] 12.0 mmol/L Normal [facility] Comment on above: Performed By: #### B MP ####[facility] Qrfkzumzrq[address] [place], [place] [address]Dr. Swathi Reis Calcium [Mass/Vol] 9.7 mg/dL Normal 8.5-10.1 [facility] Comment on above: Performed By: #### B MP ####[facility] Upsibchebi0680[address] [place], [place] [address]Dr. Swathi Reis Chloride [Moles/Vol] 102 mmol/L Normal 98-107 [facility] Comment on above: Performed By: #### B MP ####[facility] Eeazbyxhih[address] [place], [place] [address]Dr. Swathi Reis CO2 [Moles/Vol] 31.8 mmol/L Normal 21.0-32.0 [facility] Comment on above: Performed By: #### B MP ####[facility] Ohpxyxwejy9[address] [place], [place] [address]Dr. Swathi Reis Creatinine [Mass/Vol] 1.22 mg/dL Critically high 0.55-1.02 [facility] Comment on above: Performed By: #### B MP ####[facility] Cqssagqcec[address] [place], [place] [address]Dr. Swathi Reis EGFR-AF BAHRAINI 52 mL/min/1.73m2 Critically low >=60 [facility] Comment on above: Performed By: #### B MP ####[facility] Wnuiuqlgjd511[address] [place], [place] [address]Dr. Swathi Reis EGFR-NON AF BAHRAINI 43 mL/min/1.73m2 Critically low >=60 [facility] Comment on above: Performed By: #### B MP ####[facility] Kqtbzuvizv[address]16[address] [place], [place] [address]Dr. Swathi Reis Glucose [Mass/Vol] 249 mg/dL Critically high 74-106 [facility] Comment on above: Performed By: #### B MP ####[facility] Otusupmjyw[address] [place], [place] [address]Dr. Swathi Reis Potassium [Moles/Vol] 3.8 mmol/L Normal 3.5-5.1 [facility] Comment on above: Performed By: #### B MP ####[facility] Sazgxsvmqx119[address] [place], [place] [address]Dr. Swathi Chato Sodium [Moles/Vol] 142 mmol/L Normal 136-145 [facility] Comment on above: Performed By: #### B MP ####[facility] Nbqybrwhxm376[address] [place], [place] [address]Dr. Swathi Chato Urea nitrogen [Mass/Vol] 21.0 mg/dL Critically high 7.0-18.0 [facility] Comment on above: Performed By: #### B MP ####[facility] Wpkpchztbr1932[address] [place], [place] [address]Dr. Inessatracy Reis Urea nitrogen/Creatinine [Mass ratio] 17.2 mg/mg Normal [facility] Comment on above: Performed By: #### B MP ####[facility] Kvxpwpcohh80[address] [place], [place] [address]Dr. Swathi Chato CBC AUTO DIFFon 01-12-2022 BASO # 0.1 103/ul Normal 0.0-0.1 [facility] Comment on above: Performed By: #### C BC ####[facility] Gpbtycldrl75[address] [place], [place] [address]Dr. Swathi Reis Basophils/100 WBC (Bld) 0.7 % Normal 0.2-2.0 [facility] Comment on above: Performed By: #### C BC ####[facility] Wefzitrgom23[address] [place], [place] [address]Dr. Swathi Chato EO # 0.3 103/ul Normal 0.0-0.7 [facility] Comment on above: Performed By: #### C BC ####[facility] Eozpbhxtai5357[address] [place], [place] [address]Dr. Swathi Reis Eosinophils/100 WBC (Bld) 2.9 % Normal 0.9-7.0 [facility] Comment on above: Performed By: #### C BC ####[facility] Pqeepdztwf4433[address] [place], [place] [address]Dr. Swathi Reis Erythrocyte distribution width (RBC) [Ratio] 13.2 % Normal 11.0-15.0 [facility] Comment on above: Performed By: #### C BC ####[facility] Ichagdssot4978 [place] [address]Dr. Swathi Reis Hematocrit (Bld) [Volume fraction] 35.9 % Critically low 36.0-48.0 [facility] Comment on above: Performed By: #### C BC ####[facility] Aejojllzsn8506 [place] [address]Dr. Inessatracy Reis Hemoglobin (Bld) [Mass/Vol] 11.6 g/dL Critically low 12.0-16.0 [facility] Comment on above: Performed By: #### C BC ####[facility] Qrjhllkmra033[address] [place], [place] [address]Dr. Swathi Reis IG # 0.03 10e3/ul Normal 0.00-0.03 [facility] Comment on above: Performed By: #### C BC ####[facility] Fukqbhzruh000[address] [place], [place] [address]Dr. Inessatracy Reis IG % 0.4 % Normal 0.0-0.5 [facility] Comment on above: Performed By: #### C BC ####[facility] Yxeyprxhzi337[address] [place], [place] [address]Dr. Swathi Reis LYMPH # 1.5 103/ul Normal 1.2-3.8 [facility] Comment on above: Performed By: #### C BC ####[facility] Uimeosechq[address] [place], [place] [address]Dr. Swathi Reis Lymphocytes/100 WBC (Bld) 17.6 % Critically low 20.5-60.0 [facility] Comment on above: Performed By: #### C BC ####[facility] Cywiksvbqf[address] [place], [place] [address]Dr. Swathi Reis MANUAL DIFF REQ NO Normal [facility] Comment on above: Performed By: #### C BC ####[facility] Horaolfbui[address] [place], [place] [address]Dr. Swathi Reis MCH (RBC) [Entitic mass] 30.0 pg Normal 26.7-34.0 [facility] Comment on above: Performed By: #### C BC ####[facility] Aqwkeqtirm9[address] [place] [address]Dr. Swathi Reis MCHC (RBC) [Mass/Vol] 32.3 g/dL Normal 29.9-35.2 [facility] Comment on above: Performed By: #### C BC ####[facility] Mwhkzxwbni1862 [place] [address]Dr. Swathi Reis MCV (RBC) [Entitic vol] 92.8 fL Normal 81.0-99.0 [facility] Comment on above: Performed By: #### C BC ####[facility] Lvtmhoobdo7992 [place] [address]Dr. Swathi Reis MONO # 1.1 103/ul Critically high 0.3-0.8 [facility] Comment on above: Performed By: #### C BC ####[facility] Wwfpyzuiti3654 [place] [address]Dr. Swathi Reis Monocytes/100 WBC (Bld) 12.3 % Critically high 1.7-12.0 [facility] Comment on above: Performed By: #### C BC ####[facility] Yfumxkyryu4832 [place] [address]Dr. Swathi Reis NEUT # 5.7 103/ul Normal 1.4-6.5 [facility] Comment on above: Performed By: #### C BC ####[facility] Ktgeoeigpi9929 [place] [address]Dr. Swathi Reis Neutrophils/100 WBC (Bld) 66.1 % Normal 43.0-75.0 [facility] Comment on above: Performed By: #### C BC ####[facility] Twsfzfdnhs6625 [place] [address]Dr. Swathi Reis Platelet mean volume (Bld) [Entitic vol] 10.9 fL Normal 9.5-13.5 [facility] Comment on above: Performed By: #### C BC ####[facility] Ooxazdnmkj5026 [place] [address]Dr. Swathi Reis PLT 246 103/ul Normal 150-450 [facility] Comment on above: Performed By: #### C BC ####[facility] Zszxuawlwc1899 [place] [address]Dr. Swathi Reis RBC 3.87 106/ul Critically low 4.20-5.40 [facility] Comment on above: Performed By: #### C BC ####[facility] Saekhppspc0691 [place] [address]Dr. Swathi Reis WBC 8.6 103/ul Normal 4.0-11.0 [facility] Comment on above: Performed By: #### C BC ####[facility] Jblyjgtuvt0240 [place] [address]Dr. Swathi Reis CRPon 01-12-2022 CRP [Mass/Vol] mg/L Normal <=1.0 [facility] Comment on above: Performed By: #### C MP, CRP ####[facility] Kwyahsxuhc55[address] [place] [address]Dr. Swathi Chato POINT OF CARE GLUCOSEon 12-23 Glucose [Mass/Vol] 95 mg/dL Normal 74-106 [facility] Comment on above: Performed By: #### P OCGLUC ####[facility] Kxeoamzdve5727 [place] [address]Dr. Swathi Reis PROF 14(COMP METB)on 022 Albumin [Mass/Vol] 2.9 g/dL Critically low 3.4-5.0 [facility] Comment on above: Performed By: #### C MP, CRP ####[facility] Zfldnowdjt8723 [place] [address]Dr. Swathi Reis Albumin/Globulin [Mass ratio] 0.8 {ratio} Normal [facility] Comment on above: Performed By: #### C MP, CRP ####[facility] Iiehpvyjtb8655 [place] [address]Dr. Swathi Reis ALP [Catalytic activity/Vol] 91 U/L Normal 46-116 [facility] Comment on above: Performed By: #### C MP, CRP ####[facility] Kjihrfcvnx8912 [place] [address]Dr. Swathi Reis ALT [Catalytic activity/Vol] 18 U/L Normal 14-59 [facility] Comment on above: Performed By: #### C MP, CRP ####[facility] Jrraponbxo5779 [place] [address]Dr. Swathi Reis Anion gap [Moles/Vol] 9.1 mmol/L Normal [facility] Comment on above: Performed By: #### C MP, CRP ####[facility] Cwuudrxtjy8[address] [place], [place] [address]Dr. Swathi Reis AST [Catalytic activity/Vol] 17 U/L Normal 15-37 [facility] Comment on above: Performed By: #### C MP, CRP ####[facility] Jwvebbjots74[address] [place], [place] [address]Dr. Inessatracy Reis Bilirubin [Mass/Vol] 0.6 mg/dL Normal 0.2-1.3 [facility] Comment on above: Performed By: #### C MP, CRP ####[facility] Ywtregayml40[address] [place], [place] [address]Dr. Inessatracy Reis Calcium [Mass/Vol] 8.6 mg/dL Normal 8.5-10.1 [facility] Comment on above: Performed By: #### C MP, CRP ####[facility] Ibbcnntgqy72[address] [place], [place] [address]Dr. Swathi Reis Chloride [Moles/Vol] 104 mmol/L Normal 98-107 [facility] Comment on above: Performed By: #### C MP, CRP ####[facility] Lxhqnahpvi[address] [place], [place] [address]Dr. Swathi Reis CO2 [Moles/Vol] 32.1 mmol/L Critically high 22.0-30.0 [facility] Comment on above: Performed By: #### C MP, CRP ####[facility] Fngenhifuf07[address] [place], [place] [address]Dr. Swathi Reis Creatinine [Mass/Vol] 0.96 mg/dL Normal 0.52-1.04 [facility] Comment on above: Performed By: #### C MP, CRP ####[facility] Vegapraryd4938 [place] [address]Dr. Swathi Reis EGFR-AF BAHRAINI >60 Normal >=60 [facility] Comment on above: Performed By: #### C MP, CRP ####[facility] Bcusrewwrg0914 [place] [id number]. Swathi Reis EGFR-NON AF BAHRAINI 56 mL/min/1.73m2 Critically low >=60 [facility] Comment on above: Performed By: #### C MP, CRP ####[facility] Uhoomuploz4547 [place] [address]Dr. Swathi Reis Globulin (S) [Mass/Vol] 3.5 g/dL Normal [facility] Comment on above: Performed By: #### C MP, CRP ####[facility] Ihafxkqyyg8380 [place] [address]Dr. Inessatracy Reis Glucose [Mass/Vol] 114 mg/dL Critically high 74-106 [facility] Comment on above: Performed By: #### C MP, CRP ####[facility] Vyehuzcodm1865 [place] [address]Dr. Swathi Chato Potassium [Moles/Vol] 3.2 mmol/L Critically low 3.4-5.0 [facility] Comment on above: Performed By: #### C MP, CRP ####[facility] Kbnvpqksns3717 [place] [address]Dr. Swathi Reis Protein [Mass/Vol] 6.4 g/dL Normal 6.1-8.2 [facility] Comment on above: Performed By: #### C MP, CRP ####[facility] Qivzlnwmmw0317 [place] [address]Dr. Swathi Reis Sodium [Moles/Vol] 142 mmol/L Normal 137-145 [facility] Comment on above: Performed By: #### C MP, CRP ####[facility] Husqomanzj0613 [place] [address]Dr. Swathi Chato Urea nitrogen [Mass/Vol] 20.0 mg/dL Critically high 7.0-18.0 [facility] Comment on above: Performed By: #### C MP, CRP ####[facility] Vfdcflwhgq[address] [place], [place] [address]Dr. Swathi Reis Urea nitrogen/Creatinine [Mass ratio] 20.8 mg/mg Normal [facility] Comment on above: Performed By: #### C MP, CRP ####[facility] Hhwyzavufy[address] [place], [place] [address]Dr. Swathi Reis T3, TOTAL (TRIIODOTHYRONINE) on 01-12-2022 T3, TOTAL 79 ng/dL Normal 71-180 [facility] Comment on above: Performed By: #### T 3TOTAL ####[facility] Apviutiunj[address] [place], [place] [address]Dr. Swathi Reis CBC AUTO DIFFon 01-11-2022 BASO # 0.1 103/ul Normal 0.0-0.1 [facility] Comment on above: Performed By: #### C BC ####[facility] Sicltvpmpx[address] [place], [place] [address]Dr. Swathi Reis Basophils/100 WBC (Bld) 0.5 % Normal 0.2-2.0 [facility] Comment on above: Performed By: #### C BC ####[facility] Ywuammaqui[address] [place], [place] [address]Dr. Swathi Reis EO # 0.1 103/ul Normal 0.0-0.7 [facility] Comment on above: Performed By: #### C BC ####[facility] Hpbjitqdgo167[address] [place], [place] [address]Dr. Swathi Reis Eosinophils/100 WBC (Bld) 1.1 % Normal 0.9-7.0 [facility] Comment on above: Performed By: #### C BC ####[facility] Esehmaxtbx628[address] [place], [place] [address]Dr. Swathi Reis Erythrocyte distribution width (RBC) [Ratio] 13.1 % Normal 11.0-15.0 [facility] Comment on above: Performed By: #### C BC ####[facility] Wxnbfxsbco[address] [place] [address]Dr. Swathi Reis Hematocrit (Bld) [Volume fraction] 39.1 % Normal 36.0-48.0 [facility] Comment on above: Performed By: #### C BC ####[facility] Xvjvjhxakx2238 [place] [address]Dr. Swathi Reis Hemoglobin (Bld) [Mass/Vol] 12.7 g/dL Normal 12.0-16.0 [facility] Comment on above: Performed By: #### C BC ####[facility] Eawkikajra[address] [place] [address]Dr. Swathi Chato IG # 0.04 10e3/ul Critically high 0.00-0.03 [facility] Comment on above: Performed By: #### C BC ####[facility] Xwvblebjyb6458 [place] [address]Dr. Inessatracy Reis IG % 0.4 % Normal 0.0-0.5 [facility] Comment on above: Performed By: #### C BC ####[facility] Owsxlhmqrj7276 [place] [address]Dr. Swathi Chato LYMPH # 1.4 103/ul Normal 1.2-3.8 [facility] Comment on above: Performed By: #### C BC ####[facility] Rjnnyflmpk8256 [place] [address]Dr. Swathi Chato Lymphocytes/100 WBC (Bld) 12.4 % Critically low 20.5-60.0 [facility] Comment on above: Performed By: #### C BC ####[facility] Wdkupqtpco0770 [place] [address]Dr. Inessatracy Reis MANUAL DIFF REQ NO Normal [facility] Comment on above: Performed By: #### C BC ####[facility] Uvljfvxdhq3385 [place] [address]Dr. Swathi Chato MCH (RBC) [Entitic mass] 30.0 pg Normal 26.7-34.0 [facility] Comment on above: Performed By: #### C BC ####[facility] N[address]vs[address] [place], [place] [address]Dr. Swathi Reis MCHC (RBC) [Mass/Vol] 32.5 g/dL Normal 29.9-35.2 [facility] Comment on above: Performed By: #### C BC ####[facility] Gicaxepxwb5912 [place] [id number]. Swathi Reis MCV (RBC) [Entitic vol] 92.4 fL Normal 81.0-99.0 [facility] Comment on above: Performed By: #### C BC ####[facility] Eycpugopuf5432 [place] [id number]. Swathi Reis MONO # 1.1 103/ul Critically high 0.3-0.8 [facility] Comment on above: Performed By: #### C BC ####[facility] Nvzrfaykqq5780 [place] [id number]. Inessatracy Reis Monocytes/100 WBC (Bld) 10.1 % Normal 1.7-12.0 [facility] Comment on above: Performed By: #### C BC ####[facility] Ubmzklahhc[address] [place], [place] [address]Dr. Swathi Reis NEUT # 8.3 103/ul Critically high 1.4-6.5 [facility] Comment on above: Performed By: #### C BC ####[facility] Pysmgezqsh2142 [place] [phone]. Swathi Chato Neutrophils/100 WBC (Bld) 75.5 % Critically high 43.0-75.0 [facility] Comment on above: Performed By: #### C BC ####[facility] Ydbfrdxdmy8520 [place] [phone]. Swathi Chato Platelet mean volume (Bld) [Entitic vol] 11.3 fL Normal 9.5-13.5 [facility] Comment on above: Performed By: #### C BC ####[facility] Jqqnviueju1612 [place] [phone]. Swathi Chato PLT 292 103/ul Normal 150-450 [facility] Comment on above: Performed By: #### C BC ####[facility] Rvcbuungpk2787 [place], [place] [address]Ib. Swathi Reis RBC 4.23 106/ul Normal 4.20-5.40 [facility] Comment on above: Performed By: #### C BC ####[facility] Mfnvkdhqtd6088 [place], [place] [address]Ih. Swathi Reis WBC 11.0 103/ul Normal 4.0-11.0 [facility] Comment on above: Performed By: #### C BC ####[facility] Szpiccxkqi0938 [place], [place] [address]Za. Sw[address]is CT HEAD WO CONon 01-11-2022 CT HEAD WO CON Normal [facility] CULTURE URINEon 01-11-2022 CULTURE URINE Culture Observations : LIGHT GROWTH OF MIXED GENITAL ELEONORA. NO POTENTIAL PATHOGENS SEEN. Normal [facility] Comment on above: Performed By: #### U RCX ####[facility] Dzpjzzuygq8492 [place], [place] [address]Dp. Swathi Reis Covid-19 PCR (CVDTBH)on 12-23 SARS-CoV-2 (COVID-19) RNA ÓSCAR+probe Ql (Unsp spec) Not detected Normal NOT DETECTED [facility] Comment on above: Result Comment: When [...] for this test is supported by the [employer] of [employer] and Human Service's declaration [...] be used). Performed By: #### C VDTBH ####[facility] Carblkcare[address] [place], [place] [address]Dr. Swathi Reis EEGon 01-11-2022 EEG Normal [facility] ER URINE PROFILEon 2 Bilirubin Ql (U) Negative Normal NEGATIVE [facility] Comment on above: Performed By: #### E RUR ####[facility] Hzmdeusjeo0207[address] [place], [place] [address]Dr. Swathi Reis Clarity (U) CLEAR Normal CLEAR [facility] Comment on above: Performed By: #### E RUR ####[facility] Rqhkmfavxi65[address] [place], [place] [address]Dr. Swathi Reis Color (U) LT. YELLOW Normal YELLOW [facility] Comment on above: Performed By: #### E RUR ####[facility] Qklbtobpyf412[address] [place], [place] [address]Dr. Inessatracy Reis ERUAHD A micrscopic examina tion will be performed if indicated. Normal [facility] Comment on above: Performed By: #### E RUR ####[facility] Hqwdzczhaj[address] [place], [place] [address]Dr. Swathi Reis Glucose Ql (U) Negative Normal NEGATIVE [facility] Comment on above: Performed By: #### E RUR ####[facility] Qxfvfguzvk8[address] [place], [place] [address]Dr. Swathi Reis Hemoglobin Ql (U) Negative Normal NEGATIVE The [facility] Comment on above: Performed By: #### E RUR ####[facility] Lkatypoouh374[address] [place], [place] [address]Dr. Swathi Reis Ketones Ql (U) Negative Normal NEGATIVE [facility] Comment on above: Performed By: #### E RUR ####[facility] Lmfrxmebhh79[address] [place], [place] [address]Dr. Swathi Reis LEUKOCYTES Negative Normal NEGATIVE [facility] Comment on above: Performed By: #### E RUR ####[facility] Utrkjeubir754[address] [place], [place] [address]Dr. Swathi Reis Nitrite Ql (U) Negative Normal NEGATIVE [facility] Comment on above: Performed By: #### E RUR ####[facility] Pyvgfdbvvx9387 [place] [address]Dr. Swathi Reis pH (U) 6.0 [pH] Normal 5-9 [facility] Comment on above: Performed By: #### E RUR ####[facility] Wyfjtnwmkk8527 [place] [address]Dr. Inessatracy Chato SPEC GRAVITY 1.010 Normal 1.005-<=1.0 25 [facility] Comment on above: Performed By: #### E RUR ####[facility] Tucvdyugqz8932 [place] [address]Dr. Swathi Reis UA PROTEIN Negative Normal NEGATIVE/ TRACE [facility] Comment on above: Performed By: #### E RUR ####[facility] Wcenhuxmwx9727[address] [place], [place] [address]Dr. Swathi Reis UR MICRO IND NOT INDICATED Normal [facility] Comment on above: Performed By: #### E RUR ####[facility] Ftfspitasi4043 [place] [address]Dr. Swathi Reis Urobilinogen Qn (U) 0.2 {Sánchez'U}/dL Normal 0.2 - 1. 0 [facility] Comment on above: Performed By: #### E RUR ####[facility] Jdwzyoqzwg3080 [place] [address]Dr. Inessatracy Chato LACTATE/LACTIC ACIDon 2021 Lactate [Moles/Vol] 0.9 mmol/L Normal 0.7-2.0 [facility] Comment on above: Performed By: #### L ACT ####[facility] Vkbnnxxcnj1197 [place] [address]Dr. Swathi Reis Lactate [Moles/Vol] 0.9 mmol/L Normal 0.7-2.0 [facility] Comment on above: Performed By: #### L ACT ####[facility] Fnjemjdsre4[address] [place], [place] [address]Dr. Swtahi Reis POINT OF CARE GLUCOSEon 12-23 Glucose [Mass/Vol] 175 mg/dL Critically high 74-106 [facility] Comment on above: Performed By: #### P OCGLUC ####[facility] Pgcuyvkqjm3900 [place] [address]Dr. Swathi Reis Glucose [Mass/Vol] 116 mg/dL Critically high 74-106 [facility] Comment on above: Performed By: #### P OCGLUC ####[facility] Crfpplkxny6659 [place] [address]Dr. Swathi Reis PROF 14(COMP METB)on 022 Albumin [Mass/Vol] 3.3 g/dL Critically low 3.4-5.0 [facility] Comment on above: Performed By: #### H RAFFI, CMP ####[facility] Zdzcssgyab509[address] [place], [place] [address]Dr. Swathi Reis Albumin/Globulin [Mass ratio] 0.8 {ratio} Normal [facility] Comment on above: Performed By: #### H RAFFI, CMP ####[facility] Grbbletwnz308[address] [place], [place] [address]Dr. Swathi Reis ALP [Catalytic activity/Vol] 110 U/L Normal 46-116 [facility] Comment on above: Performed By: #### H RAFFI, CMP ####[facility] Ktwvqvoamd316[address] [place], [place] [address]Dr. Swathi Reis ALT [Catalytic activity/Vol] 20 U/L Normal 14-59 [facility] Comment on above: Performed By: #### H RAFFI, CMP ####[facility] Wkrilzlxef732[address] [place], [place] [address]Dr. Swathi Reis Anion gap [Moles/Vol] 15.9 mmol/L Normal [facility] Comment on above: Performed By: #### H NIGHATPN, CMP ####[facility] Iuctdfuxah2380 [place] [address]Dr. Swathi Reis AST [Catalytic activity/Vol] 24 U/L Normal 15-37 [facility] Comment on above: Performed By: #### H STROPN, CMP ####[facility] Cfdndngnxz12[address] [place], [place] [address]Dr. Swathi Reis Bilirubin [Mass/Vol] 0.5 mg/dL Normal 0.2-1.3 [facility] Comment on above: Performed By: #### H RAFFI, CMP ####[facility] Bzpqbtbeat8495 [place] [address]Dr. Swathi Reis Calcium [Mass/Vol] 9.5 mg/dL Normal 8.5-10.1 [facility] Comment on above: Performed By: #### H NIGHATPN, CMP ####[facility] Oqxyfkmpom8318 [place] [address]Dr. Swathi Reis Chloride [Moles/Vol] 100 mmol/L Normal 98-107 [facility] Comment on above: Performed By: #### H RAFFI, CMP ####[facility] Fiuynlqfoo9556 [place] [address]Dr. Swathi Reis CO2 [Moles/Vol] 27.8 mmol/L Normal 22.0-30.0 [facility] Comment on above: Performed By: #### H RAFFI, CMP ####[facility] Sthaphhspc[address] [place], [place] [address]Dr. Swathi Reis Creatinine [Mass/Vol] 1.21 mg/dL Critically high 0.52-1.04 [facility] Comment on above: Performed By: #### H RAFFI, CMP ####[facility] Nwnlybuwjx9143 [place] [address]Dr. Swathi Reis EGFR-AF BAHRAINI 52 mL/min/1.73m2 Critically low >=60 [facility] Comment on above: Performed By: #### H NIGHATPN, CMP ####[facility] Uihgdxxtjz3028 [place] [address]Dr. Swathi Reis EGFR-NON AF BAHRAINI 43 mL/min/1.73m2 Critically low >=60 [facility] Comment on above: Performed By: #### H NIGHATPN, CMP ####[facility] Maojsadvsi9847 [place] [address]Dr. Inessatracy Reis Globulin (S) [Mass/Vol] 4.1 g/dL Normal [facility] Comment on above: Performed By: #### H STROPN, CMP ####[facility] Sqgekiebff7608 [place] [phone]. Swathi Reis Glucose [Mass/Vol] 195 mg/dL Critically high 74-106 [facility] Comment on above: Performed By: #### H RAFFI, CMP ####[facility] Cctnqctpio2341 [place] [phone]. Swathi Reis Potassium [Moles/Vol] 3.7 mmol/L Normal 3.4-5.0 [facility] Comment on above: Performed By: #### H RAFFI, CMP ####[facility] Ecpmjdfzns1035 [place] [phone]. Swathi Reis Protein [Mass/Vol] 7.4 g/dL Normal 6.1-8.2 [facility] Comment on above: Performed By: #### H RAFFI, CMP ####[facility] Mlduimrzld2998 [place] [address]Dr. Swathi Reis Sodium [Moles/Vol] 140 mmol/L Normal 137-145 [facility] Comment on above: Performed By: #### H RAFFI, CMP ####[facility] Hbaclcfatw0962 [place] [address]Dr. Swathi Reis Urea nitrogen [Mass/Vol] 22.0 mg/dL Critically high 7.0-18.0 [facility] Comment on above: Performed By: #### H RAFFI, CMP ####[facility] Wklbguvmix8495 [place] [address]Dr. Swathi Reis Urea nitrogen/Creatinine [Mass ratio] 18.2 mg/mg Normal [facility] Comment on above: Performed By: #### H RAFFI, CMP ####[facility] Jhjgoqfgfv2840 [place] [id number]. Swathi Reis T4on 01-11-2022 T4 [Mass/Vol] 9.10 ug/dL Normal 5.53-11.00 [facility] Comment on above: Performed By: #### T SH, T4 ####[facility] Ogakjkkgga7190 [place] [address]Dr. Swathi Chato TROPONIN, HIGH SENSITIVITYon 01-11-2022 HSTROP 13.7 pg/mL Normal 4.0-35.5 [facility] Comment on above: Result Comment: CUT- OFF POINTS HAVE BEEN ESTABLISHED BASED ON THE FOURTH UNIVERSAL DEFINITIONS OF MYOCARDIALINFARCTION. THE UPPER REFERENCE LIMIT (URL) OF TROPONIN, DEFINED THE 99TH PERCENTILE OFcTnI DISTRIBUTION IN A REFERENCE POPULATION, HAS BEEN CONFIRMED THE DECISION THRESHOLDFOR PA DIAGNOSIS. Performed By: #### H STROPN, CMP ####[facility] Lcgndmpryv6103 [place] [address]Dr. Swathi Reis TSHon 01-11-2022 TSH 2.618 uIU/mL Normal 0.470-4.680 [facility] Comment on above: Performed By: #### T SH, T4 ####[facility] Wyodiwpxlu101[address] [place], [place] [address]Dr. Swathi Reis TSH RANGE SEE BELOW Normal [facility] Comment on above: Result Comment: <0.3 4 UIU/ml HYPERTHYROID 0.34-5.60 UIU/ml EUTHYROID >5.60 UIU/ml HYPOTHYROID Performed By: #### T SH, T4 ####[facility] Kdclhthbke[address] [place], [place] [address]Dr. Swathi Reis CBC AUTO DIFFon 01-09-2022 BASO # 0.1 103/ul Normal 0.0-0.1 [facility] Comment on above: Performed By: #### C BC ####[facility] Qayherodge3934[address] [place], [place] [address]Dr. Swathi Chato Basophils/100 WBC (Bld) 0.6 % Normal 0.2-2.0 [facility] Comment on above: Performed By: #### C BC ####[facility] Zkzthibczi6316[address] [place], [place] [address]Dr. Swathi Reis EO # 0.2 103/ul Normal 0.0-0.7 [facility] Comment on above: Performed By: #### C BC ####[facility] Airtxmvlac28[address] [place], [place] [address]Dr. Swathi Chato Eosinophils/100 WBC (Bld) 2.7 % Normal 0.9-7.0 [facility] Comment on above: Performed By: #### C BC ####[facility] Iihshrxuyn8881 [place] [address]Dr. Swathi Reis Erythrocyte distribution width (RBC) [Ratio] 13.2 % Normal 11.0-15.0 [facility] Comment on above: Performed By: #### C BC ####[facility] Nugkxuzlmb3138 [place] [address]Dr. Swathi Reis Hematocrit (Bld) [Volume fraction] 39.7 % Normal 36.0-48.0 [facility] Comment on above: Performed By: #### C BC ####[facility] Anufgpblzs119[address] [place], [place] [address]Dr. Swathi Reis Hemoglobin (Bld) [Mass/Vol] 12.7 g/dL Normal 12.0-16.0 [facility] Comment on above: Performed By: #### C BC ####[facility] Jilkllrpyz76[address] [place], [place] [address]Dr. Swathi Reis IG # 0.04 10e3/ul Critically high 0.00-0.03 [facility] Comment on above: Performed By: #### C BC ####[facility] Csilpehdiq9359[address] [place], [place] [address]Dr. Swathi Reis IG % 0.4 % Normal 0.0-0.5 [facility] Comment on above: Performed By: #### C BC ####[facility] Dcyxcdaftx700[address] [place], [place] [address]Dr. Swathi Reis LYMPH # 1.4 103/ul Normal 1.2-3.8 [facility] Comment on above: Performed By: #### C BC ####[facility] Enwaxixjui1910[address] [place], [place] [address]Dr. Swathi Reis Lymphocytes/100 WBC (Bld) 15.9 % Critically low 20.5-60.0 [facility] Comment on above: Performed By: #### C BC ####[facility] Schflinkeq5744[address] [place], [place] [address]Dr. Swathi Reis MANUAL DIFF REQ NO Normal [facility] Comment on above: Performed By: #### C BC ####[facility] Zuzlzyzows5058 [place] [id number]. Swathi Chato MCH (RBC) [Entitic mass] 30.0 pg Normal 26.7-34.0 [facility] Comment on above: Performed By: #### C BC ####[facility] Oaqcnwnzmc4471 [place] [id number]. Swathi Chato MCHC (RBC) [Mass/Vol] 32.0 g/dL Normal 29.9-35.2 [facility] Comment on above: Performed By: #### C BC ####[facility] Qjfxltcqpn1483 [place] [address]Dr. Swathi Reis MCV (RBC) [Entitic vol] 93.9 fL Normal 81.0-99.0 [facility] Comment on above: Performed By: #### C BC ####[facility] Vzorqswgei7[address] [place], [place] [address]DrOtto Reis MONO # 0.9 103/ul Critically high 0.3-0.8 [facility] Comment on above: Performed By: #### C BC ####[facility] Yjbpamofez165[address] [place], [place] [address]Dr. Swathi Reis Monocytes/100 WBC (Bld) 9.7 % Normal 1.7-12.0 [facility] Comment on above: Performed By: #### C BC ####[facility] Whhiopqmxf4939[address] [place], [place] [address]DrOtto Reis NEUT # 6.3 103/ul Normal 1.4-6.5 [facility] Comment on above: Performed By: #### C BC ####[facility] Ukvbotetxc[address] [place], [place] [address]DrOtto Reis Neutrophils/100 WBC (Bld) 70.7 % Normal 43.0-75.0 [facility] Comment on above: Performed By: #### C BC ####[facility] Dmayhfmslo94[address] [place], [place] [address]DrOtto Reis Platelet mean volume (Bld) [Entitic vol] 10.7 fL Normal 9.5-13.5 [facility] Comment on above: Performed By: #### C BC ####[facility] Dwyvogbpyb7624 [place] [address]Dr. Swathi Reis PLT 269 103/ul Normal 150-450 [facility] Comment on above: Performed By: #### C BC ####[facility] Fjfbaaqdyt0692 [place] [id number]. Swathi Reis RBC 4.23 106/ul Normal 4.20-5.40 [facility] Comment on above: Performed By: #### C BC ####[facility] Qehocnycim6764 [place] [address]Dr. Swathi Reis WBC 8.9 103/ul Normal 4.0-11.0 [facility] Comment on above: Performed By: #### C BC ####[facility] Zzckhzznoh1140 [place] [address]Dr. Inessatracy Chato FREE T3on 01-09-2022 FREE T3 2.19 pg/mlL Critically low 2.77-5.27 [facility] Comment on above: Performed By: #### T SH, T4, FT3, LIPID, CMP ####[facility] Ghifxsjrlu[address] [place], [place] [address]Dr. Swathi Chato GLYCOHEMOGLOBIN A1Con 2021 ADA RECOMMENDATION ADA THERAPEUTIC TARG ET 6.0 - 7.0 ACTION SUGGESTED > 7.0 Normal [facility] Comment on above: Performed By: #### A 1C ####[facility] Gufiyvfrqq3790 [place] [address]Dr. Swathi Chato Glucose [Mass/Vol] 137 mg/dL Normal [facility] Comment on above: Performed By: #### A 1C ####[facility] Qfligrljzv5443 [place] [address]Dr. Swathi Chato HbA1c (Bld) [Mass fraction] 6.4 % Critically high <=6.0 [facility] Comment on above: Performed By: #### A 1C ####[facility] Zposwelbth640[address] [place], [place] [address]Dr. Swathi Chato LIPID PROFILEon 01-09-2022 CHOL-HDL RATIO NORM SEE BELOW Normal [facility] Comment on above: Result Comment: 3.3 - 4.4 LOW RISK 4.4 - 7.1 AVERAGE RISK 7.1 - 11.0 MODERATE RISK >11.0 HIGH RISK Performed By: #### T SH, T4, FT3, LIPID, CMP ####[facility] Nnvrlwvmsb3597 [place] [id number]. Inessatracy Reis Cholesterol [Mass/Vol] 238 mg/dL Critically high <=200 [facility] Comment on above: Performed By: #### T SH, T4, FT3, LIPID, CMP ####[facility] Aepvkwhurk0655 [place] [address]Dr. Swathi Reis Cholesterol in HDL [Mass/Vol] 95 mg/dL Critically high 40-60 [facility] Comment on above: Performed By: #### T SH, T4, FT3, LIPID, CMP ####[facility] Hxaafxdpuw2951 [place] [address]Dr. Swathi Reis Cholesterol in LDL [Mass/Vol] 121.0 mg/dL Normal [facility] Comment on above: Performed By: #### T SH, T4, FT3, LIPID, CMP ####[facility] Xonscoqsgb7844 [place] [address]Dr. Swathi Reis Cholesterol.total/Chol esterol in HDL [Mass ratio] 2.5 {ratio} Normal [facility] Comment on above: Performed By: #### T SH, T4, FT3, LIPID, CMP ####[facility] Eqjaubxify6457 [place] [id number]. Inessatracy Reis HDL NORMAL > or = 60 mg/dl - LO W CARDIOVASCULAR RISK <40 mg/dl - HIGH CARDIOVASCULAR RISK Normal [facility] Comment on above: Performed By: #### T SH, T4, FT3, LIPID, CMP ####[facility] Aeisgbjvqh9335 [place] [address]Dr. Swathi Reis LDL CALC NORMAL SEE BELOW Normal [facility] Comment on above: Result Comment: <100 mg/dl OPTIMAL 100 - 129 mg/dl NEAR OR ABOVE OPTIMAL 130 - 159 mg/dl BORDERLINE HIGH 160 - 189 mg/dl HIGH >190 mg/dl VERY HIGH Performed By: #### T SH, T4, FT3, LIPID, CMP ####[facility] Ujvastmirl4785 [place] [address]Dr. Swtahi Reis Triglyceride [Mass/Vol] 110 mg/dL Normal <=150 [facility] Comment on above: Performed By: #### T SH, T4, FT3, LIPID, CMP ####[facility] Eezdnatgim9540 [place] [address]Dr. Swathi Reis VLDL CALC 22.0 mg/dL Normal [facility] Comment on above: Performed By: #### T SH, T4, FT3, LIPID, CMP ####[facility] Iitcennuuf7229 [place] [address]Dr. Swathi Reis PROF 14(COMP METB)on 022 Albumin [Mass/Vol] 3.5 g/dL Normal 3.4-5.0 [facility] Comment on above: Performed By: #### T SH, T4, FT3, LIPID, CMP ####[facility] Yezbjnjgoh8509 [place] [address]Dr. Swathi Reis Albumin/Globulin [Mass ratio] 0.9 {ratio} Normal [facility] Comment on above: Performed By: #### T SH, T4, FT3, LIPID, CMP ####[facility] Cuqhdkhadr[address] [place] [address]Dr. Swathi Reis ALP [Catalytic activity/Vol] 112 U/L Normal 46-116 [facility] Comment on above: Performed By: #### T SH, T4, FT3, LIPID, CMP ####[facility] Mackanbbaf3305 [place] [address]Dr. Swathi Reis ALT [Catalytic activity/Vol] 14 U/L Normal 14-59 [facility] Comment on above: Performed By: #### T SH, T4, FT3, LIPID, CMP ####[facility] Vpasorepix8878 [place] [address]Dr. Swathi Reis Anion gap [Moles/Vol] 10.4 mmol/L Normal [facility] Comment on above: Performed By: #### T SH, T4, FT3, LIPID, CMP ####[facility] Sxsqwyxrwh9647 [place] [place] [address]Dr. Swathi Reis AST [Catalytic activity/Vol] 18 U/L Normal 15-37 [facility] Comment on above: Performed By: #### T SH, T4, FT3, LIPID, CMP ####[facility] Nyozrauabi[address] [place], [place] [address]Dr. Swathi Reis Bilirubin [Mass/Vol] 0.6 mg/dL Normal 0.2-1.3 [facility] Comment on above: Performed By: #### T SH, T4, FT3, LIPID, CMP ####[facility] Hfucxiabtl[address] [place], [place] [address]Dr. Swathi Reis Calcium [Mass/Vol] 9.4 mg/dL Normal 8.5-10.1 [facility] Comment on above: Performed By: #### T SH, T4, FT3, LIPID, CMP ####[facility] Vunhqwwcol[address] [place], [place] [address]Dr. Swathi Reis Chloride [Moles/Vol] 101 mmol/L Normal 98-107 [facility] Comment on above: Performed By: #### T SH, T4, FT3, LIPID, CMP ####[facility] Fptkoifvkz[address] [place], [place] [address]Dr. Swathi Reis CO2 [Moles/Vol] 33.2 mmol/L Critically high 22.0-30.0 [facility] Comment on above: Performed By: #### T SH, T4, FT3, LIPID, CMP ####[facility] Cksrjibvau[address] [place], [place] [address]Dr. Swathi Reis Creatinine [Mass/Vol] 1.13 mg/dL Critically high 0.52-1.04 [facility] Comment on above: Performed By: #### T SH, T4, FT3, LIPID, CMP ####[facility] Ywqnukfhuf[address] [place], [place] [address]Dr. Swathi Reis EGFR-AF BAHRAINI 57 mL/min/1.73m2 Critically low >=60 [facility] Comment on above: Performed By: #### T SH, T4, FT3, LIPID, CMP ####[facility] Gmvwufjkcy[address] [place] [address]Dr. Swathi Reis EGFR-NON AF BAHRAINI 47 mL/min/1.73m2 Critically low >=60 [facility] Comment on above: Performed By: #### T SH, T4, FT3, LIPID, CMP ####[facility] Jwbtdijdcn[address] [place], [place] [address]Dr. Swathi Reis Globulin (S) [Mass/Vol] 4.1 g/dL Normal [facility] Comment on above: Performed By: #### T SH, T4, FT3, LIPID, CMP ####[facility] Kpeqiyhejh[address] [place], [place] [address]Dr. Swathi Reis Glucose [Mass/Vol] 144 mg/dL Critically high 74-106 [facility] Comment on above: Performed By: #### T SH, T4, FT3, LIPID, CMP ####[facility] Izarfazejx8[address] [place], [place] [address]Dr. Swathi Reis Potassium [Moles/Vol] 3.6 mmol/L Normal 3.4-5.0 [facility] Comment on above: Performed By: #### T SH, T4, FT3, LIPID, CMP ####[facility] Cjiezwxzmf[address] [place], [place] [address]Dr. Swathi Reis Protein [Mass/Vol] 7.6 g/dL Normal 6.1-8.2 [facility] Comment on above: Performed By: #### T SH, T4, FT3, LIPID, CMP ####[facility] Wjkcfxqgsr[address] [place], [place] [address]Dr. Swathi Reis Sodium [Moles/Vol] 141 mmol/L Normal 137-145 [facility] Comment on above: Performed By: #### T SH, T4, FT3, LIPID, CMP ####[facility] Mppnyjezev[address] [place], [place] [address]Dr. Swathi Reis Urea nitrogen [Mass/Vol] 22.0 mg/dL Critically high 7.0-18.0 [facility] Comment on above: Performed By: #### T SH, T4, FT3, LIPID, CMP ####[facility] [address]yehdez[address] [place] [address]Dr. Swathi Reis Urea nitrogen/Creatinine [Mass ratio] 19.5 mg/mg Normal [facility] Comment on above: Performed By: #### T SH, T4, FT3, LIPID, CMP ####[facility] Mrcglwacnc9[address] [place], [place] [address]Dr. Swathi Reis T4on 01-09-2022 T4 [Mass/Vol] 8.80 ug/dL Normal 5.53-11.00 [facility] Comment on above: Performed By: #### T SH, T4, FT3, LIPID, CMP ####[facility] Hfukkazhfb[address] [place], [place] [address]Dr. Swathi Reis TSHon 01-09-2022 TSH 3.176 uIU/mL Normal 0.470-4.680 [facility] Comment on above: Performed By: #### T SH, T4, FT3, LIPID, CMP ####[facility] Jnnsznxkdb[address] [place], [place] [address]Dr. Swathi Reis TSH RANGE SEE BELOW Normal [facility] Comment on above: Result Comment: <0.3 4 UIU/ml HYPERTHYROID 0.34-5.60 UIU/ml EUTHYROID >5.60 UIU/ml HYPOTHYROID Performed By: #### T SH, T4, FT3, LIPID, CMP ####[facility] Ibezvopclr[address] [place], [place] [address]Dr. Swathi Reis VITAMIN D 25 OHon 01-09-2022 VIT D 25-OH 64.4 ng/mL Normal [facility] Comment on above: Performed By: #### V ITAD ####[facility] Krvwdxktmp[address] [place], [place] [address]Dr. Swathi Reis VIT D RANGES SEE BELOW Normal [facility] Comment on above: Result Comment: <20 ng/mL Vit D deficient 20 - <30 ng/mL Vit D insufficient 30 - 100 ng/mL Vit D sufficient >100 ng/mL Potential Toxicity Performed By: #### V ITAD ####[facility] [address] [place], [place] [address]Ab. Swathi Reis MG MAMM DIAGNOSTIC 3D GISELE CA Don 01-05-2022 MG MAMM DIAGNOSTIC 3D GISELE CAD Normal [facility] FRESH FROZ PLASMAon 11-24-19 FRESH FROZ PLASMA Normal The [facility] Comment on above: Performed By: #### F FP ####[facility] [address] [place], [place] [address]Wc. Swathi Reis Creatinine and Glomerular fi ltration rate.predicted panel (S/P/Bld)Ordered By: Shaka Echavarria on 11-11-2021 Creatinine [Mass/Vol] 1.38 mg/dL 0.44-1.03 [facility] Estimated glomerular filtrat ion rate (GFR) non- AmericanOrdered By: Shaka Echavarria on 11-11-2021 GFR/1.73 sq M.predicted among non-blacks MDRD (S/P/Bld) [Vol rate/Area] 37 mL/Min [facility] Glucose Glucometer (BldC) [M ass/Vol]Ordered By: Shaka Echavarria on 11-11-2021 Glucose [Mass/Vol] 233 mg/dL [facility] Comment on above: Random Glucose Refer ence Range is dependent on time and content of last meal. Glucose of more than 200 mg/dL in a nonstressed, ambulatory subject supports the diagnosis of Diabetes Mellitus. No Panel InformationOrdered By: Shaka Echavarria on 11-11-2021 Bedside Glucose Comment Glu2: cleaned meter [facility] Estimated GFR () 45 mL/Min [facility] Comment on above: GFR estimated refere nce range: According to KDOQI guidelines, <60 ml/min/1.73m2 is sufficient to diagnose a patient with chronic kidney disease. Pharmacy Creatinine Clearance (Chem 29.48 [facility] Serum or plasma calcium missy urement (mass/volume)Ordered By: Shaka Echavarria on 11-11-2021 Calcium [Mass/Vol] 8.9 mg/dL 8.2-10.2 [facility] Serum or plasma chloride ken surement (moles/volume)Ordered By: Shaka Echavarria on 11-11-2021 Chloride [Moles/Vol] 94 mmol/L 95-114 [facility] Serum or plasma glucose missy urement (mass/volume)Ordered By: Shaka Echavarria on 11-11-2021 Glucose [Mass/Vol] 297 mg/dL 70-100 [facility] Comment on above: Delta: 179 on -[id number] recommended reference rangeRandom Glucose Reference Range is dependent on time and content of last meal. Glucose of more than 200 mg/dL in a nonstressed, ambulatory subject supports the diagnosis of Diabetes Mellitus. Serum or plasma potassium me asurement (moles/volume)Ordered By: Shaka Echavarria on 11-11-2021 Potassium [Moles/Vol] 3.7 mmol/L 3.5-5.1 [facility] Serum or plasma sodium measu rement (moles/volume)Ordered By: Shaka Echavarria on 11-11-2021 Sodium [Moles/Vol] 132 mmol/L 136-146 [facility] Serum or plasma total carbon dioxide measurement (moles/volume)Ordered By: Shaka Echavarria on 11-11-2021 CO2 [Moles/Vol] 22.6 mmol/L 22.0-30.0 [facility] Serum or plasma urea nitroge n measurement (mass/volume)Ordered By: Shaka Echavarria on 11-11-2021 Urea nitrogen [Mass/Vol] 19 mg/dL 9-23 [facility] Basophils Auto (Bld) [#/Vol] Ordered By: Salma Cortes on 11-10-2021 Basophils (Bld) [#/Vol] 0.0 10*3/uL 0.0-0.2 [facility] Basophils/100 WBC Auto (Bld) Ordered By: Salma Cortes on 11-10-2021 Basophils/100 WBC (Bld) 0.2 % [facility] Blood hemoglobin measurement (mass/volume)Ordered By: Salma Cortes on 11-10-2021 Hemoglobin (Bld) [Mass/Vol] 13.2 g/dL 11.8-15.4 [facility] Blood leukocytes automated c ount (number/volume)Ordered By: Salma Cortes on 11-10-2021 WBC (Bld) [#/Vol] 10.7 10*3/uL 4.5-11.0 [facility] Eosinophils Auto (Bld) [#/Vo l]Ordered By: Salma Cortes on 11-10-2021 Eosinophils (Bld) [#/Vol] 0.0 10*3/uL 0.0-0.45 [facility] Eosinophils/100 WBC Auto (Bl d)Ordered By: Salma Cortes on 11-10-2021 Eosinophils/100 WBC (Bld) 0.1 % [facility] Erythrocyte distribution wid th Auto (RBC) [Ratio]Ordered By: Salma Cortes on 11-10-2021 Erythrocyte distribution width (RBC) [Ratio] 13.8 % 11.9-15.3 [facility] Hematocrit Auto (Bld) [Volum e fraction]Ordered By: Salma Cortes on 11-10-2021 Hematocrit (Bld) [Volume fraction] 39.1 % 34.0-46.4 [facility] Laboratory - CoagulationOrde red By: Salma Cortes on 11-10-2021 PT Coag (PPP) [Time] 12.6 s 9.0-12.9 [facility] Laboratory - Hematology and Cell countsOrdered By: Salma Cortes on 11-10-2021 Nucleated RBC/100 WBC (Bld) [Ratio] 0.1 % 0-0.5 [facility] Lymphocytes Auto (Bld) [#/Vo l]Ordered By: Salma Cortes on 11-10-2021 Lymphocytes (Bld) [#/Vol] 1.3 10*3/uL 1.00-4.8 [facility] Lymphocytes/100 WBC Auto (Bl d)Ordered By: Salma Cortes on 11-10-2021 Lymphocytes/100 WBC (Bld) 12.0 % [facility] MCH Auto (RBC) [Entitic mass ]Ordered By: Salma Cortes on 11-10-2021 MCH (RBC) [Entitic mass] 30.4 pg 24.7-34.3 [facility] MCHC Auto (RBC) [Mass/Vol]Or dered By: Salma Cortes on 11-10-2021 MCHC (RBC) [Mass/Vol] 33.8 g/dL 32.0-35.0 [facility] MCV Auto (RBC) [Entitic vol] Ordered By: Salma Cortes on 11-10-2021 MCV (RBC) [Entitic vol] 90.0 fL 80-100 [facility] Monocytes Auto (Bld) [#/Vol] Ordered By: Salma Cortes on 11-10-2021 Monocytes (Bld) [#/Vol] 1.2 10*3/uL 0.0-0.8 [facility] Monocytes/100 WBC Auto (Bld) Ordered By: Salma Cortes on 11-10-2021 Monocytes/100 WBC (Bld) 10.8 % [facility] Neutrophils Auto (Bld) [#/Vo l]Ordered By: Salma Cortes on 11-10-2021 Neutrophils (Bld) [#/Vol] 8.2 10*3/uL 1.8-7.7 [facility] Neutrophils/100 WBC Auto (Bl d)Ordered By: Salma Cortes on 11-10-2021 Neutrophils/100 WBC (Bld) 76.9 % [facility] Platelet mean volume Auto (B ld) [Entitic vol]Ordered By: Salma Cortes on 11-10-2021 Platelet mean volume (Bld) [Entitic vol] 9.2 fL 6.3-10.7 [facility] Platelet poor plasma interna tional normalized ratio (INR) by coagulation assay (relatOrdered By: Salma Cortes on 11-10-2021 INR Coag (PPP) [Relative time] 1.1 {INR} [facility] Comment on above: INR Therapeutic Rang [...] 11-10-2021 Platelets (Bld) [#/Vol] 261 10*3/uL 150-450 [facility] RBC Auto (Bld) [#/Vol]Ordere d By: Salma Cortes on 11-10-2021 RBC (Bld) [#/Vol] 4.35 10*6/uL 3.60-5.00 [facility] BNPon 11-09-2021 Natriuretic peptide B (Bld) [Mass/Vol] 914.0 pg/mL Normal <=1,800.0 [facility] Comment on above: Performed By: #### C MADM, CMP, BNP ####[facility] [address] [place] [address]Dr. Swathi Reis CARDIAC TRINA ADMITon 022 CK [Catalytic activity/Vol] 50 U/L Normal 30-135 [facility] Comment on above: Performed By: #### C MADM, CMP, BNP ####[facility] X[address] [place] [address]Dr. Swathi Reis CK.MB [Mass/Vol] 1.14 ng/mL Normal <=2.37 [facility] Comment on above: Performed By: #### C MADM, CMP, BNP ####[facility] [address] [place] [address]Dr. Swathi Reis HSTROP 12.8 pg/mL Normal 4.0-35.5 [facility] Comment on above: Result Comment: CUT- OFF POINTS HAVE BEEN ESTABLISHED BASED ON THE FOURTH UNIVERSAL DEFINITIONS OF MYOCARDIALINFARCTION. THE UPPER REFERENCE LIMIT (URL) OF TROPONIN, DEFINED THE 99TH PERCENTILE OFcTnI DISTRIBUTION IN A REFERENCE POPULATION, HAS BEEN CONFIRMED THE DECISION THRESHOLDFOR PA DIAGNOSIS. Performed By: #### C MADM, CMP, BNP ####[facility] [address] [place] [address]Dr. Swathi Reis GUANACO 53.0 ng/mL Normal <=61.5 [facility] Comment on above: Performed By: #### C MADM, CMP, BNP ####[facility] Zxd[address] [place] [address]Dr. Swathi Chato CBC AUTO DIFFon 11-09-2021 BASO # 0.0 103/ul Normal 0.0-0.1 [facility] Comment on above: Performed By: #### C BC ####[facility] X[address]qvd[address] [place], [place] [address]Dr. Swathi Reis Basophils/100 WBC (Bld) 0.3 % Normal 0.2-2.0 [facility] Comment on above: Performed By: #### C BC ####[facility] U[address]opswbxfm[address] [place], [place] [address]Dr. Swathi Reis EO # 0.0 103/ul Normal 0.0-0.7 [facility] Comment on above: Performed By: #### C BC ####[facility] X[address]apqy[address] [place], [place] [address]Dr. Swathi Reis Eosinophils/100 WBC (Bld) 0.2 % Critically low 0.9-7.0 [facility] Comment on above: Performed By: #### C BC ####[facility] Hdkponrpzw[address] [place], [place] [address]Dr. Swathi Reis Erythrocyte distribution width (RBC) [Ratio] 13.1 % Normal 11.0-15.0 [facility] Comment on above: Performed By: #### C BC ####[facility] R[address]tuvv[address] [place], [place] [address]Dr. Swathi Reis Hematocrit (Bld) [Volume fraction] 40.8 % Normal 36.0-48.0 [facility] Comment on above: Performed By: #### C BC ####[facility] [address]xbwopkio[address] [place], [place] [address]Dr. Swathi Reis Hemoglobin (Bld) [Mass/Vol] 13.3 g/dL Normal 12.0-16.0 [facility] Comment on above: Performed By: #### C BC ####[facility] P[address]osijzgxe[address] [place], [place] [address]Dr. Swathi Reis IG # 0.05 10e3/ul Critically high 0.00-0.03 [facility] Comment on above: Performed By: #### C BC ####[facility] Weabsvpjan[address] [place] [address]DrOtto Swathi Reis IG % 0.4 % Normal 0.0-0.5 [facility] Comment on above: Performed By: #### C BC ####[facility] Zaaybdstsl[address] [place] [address]DrOtto Swathi Chato LYMPH # 1.0 103/ul Critically low 1.2-3.8 [facility] Comment on above: Performed By: #### C BC ####[facility] Iddkxcqpwg[address] [place] [address]DrOtto Swathi Chato Lymphocytes/100 WBC (Bld) 8.3 % Critically low 20.5-60.0 [facility] Comment on above: Performed By: #### C BC ####[facility] Mckybynv[address] [place], [place] [address]DrOtto Inessatracy Reis MANUAL DIFF REQ NO Normal [facility] Comment on above: Performed By: #### C BC ####[facility] [address]tc[address]oo[address] [place] [address]DrOtto Swathi Chato MCH (RBC) [Entitic mass] 29.8 pg Normal 26.7-34.0 [facility] Comment on above: Performed By: #### C BC ####[facility] Fmaeefjjfl[address] [place] [address]Dr. Swathi Chato MCHC (RBC) [Mass/Vol] 32.6 g/dL Normal 29.9-35.2 [facility] Comment on above: Performed By: #### C BC ####[facility] Whnqosfeaa[address] [place] [address]DrOtto Inessatracy Reis MCV (RBC) [Entitic vol] 91.5 fL Normal 81.0-99.0 [facility] Comment on above: Performed By: #### C BC ####[facility] V[address]mrkwxtn[address] [place], [place] [address]DrOtto Reis MONO # 0.6 103/ul Normal 0.3-0.8 [facility] Comment on above: Performed By: #### C BC ####[facility] L[address]pihymweu[address] [place] [address]Dr. Swathi Reis Monocytes/100 WBC (Bld) 4.9 % Normal 1.7-12.0 [facility] Comment on above: Performed By: #### C BC ####[facility] Myyqy[address]accz[address] [place] [id number]. Swathi Reis NEUT # 10.5 103/ul Critically high 1.4-6.5 [facility] Comment on above: Performed By: #### C BC ####[facility] [address] [place] [address]Dr. Swathi Reis Neutrophils/100 WBC (Bld) 85.9 % Critically high 43.0-75.0 [facility] Comment on above: Performed By: #### C BC ####[facility] Uyrvnnyscl[address] [place] [address]Dr. Swathi Reis Platelet mean volume (Bld) [Entitic vol] 10.9 fL Normal 9.5-13.5 [facility] Comment on above: Performed By: #### C BC ####[facility] Tbiwvhoiuz[address] [place] [address]Dr. Swathi Reis PLT 290 103/ul Normal 150-450 [facility] Comment on above: Performed By: #### C BC ####[facility] Ludbyzcsst[address] [place] [address]Dr. Swathi Reis RBC 4.46 106/ul Normal 4.20-5.40 [facility] Comment on above: Performed By: #### C BC ####[facility] Ryngeivwho[address] [place] [id number]. Swathi Reis WBC 12.3 103/ul Critically high 4.0-11.0 [facility] Comment on above: Performed By: #### C BC ####[facility] Nfqezxdutd6[address] [place] [id number]. Swathi Reis CT HEAD WO CONon 11-09-2021 CT HEAD WO CON Normal [facility] Covid-19 PCR (CVDTBH)on 10-24 SARS-CoV-2 (COVID-19) RNA ÓSCAR+probe Ql (Unsp spec) Not detected Normal NOT DETECTED [facility] Comment on above: Result Comment: When [...] for this test is supported by the [employer] of [employer] and Human Service's declaration that [...] be used). Performed By: #### C VDTB ####[facility] Nqniszqyny[address] [place], [place] [address]Dr. Swathi Reis ER URINE PROFILEon 2 Bilirubin Ql (U) Negative Normal NEGATIVE [facility] Comment on above: Performed By: #### REYNOLD SOSA ####[facility] Z[address]kwyhbsg[address] [place], [place] [address]Dr. Swathi Reis Clarity (U) CLEAR Normal CLEAR [facility] Comment on above: Performed By: #### REYNOLD SOSA ####[facility] Uljeymffxm213[address] [place], [place] [address]Dr. Swathi Reis Color (U) LT. YELLOW Normal YELLOW [facility] Comment on above: Performed By: #### ROMEO SOSARO ####[facility] Wsnokqzmyv[address] [place], [place] [address]Dr. Swathi Reis ERUAHD A micrscopic examina tion will be performed if indicated. Normal [facility] Comment on above: Performed By: #### E RUR, UMICRO ####[facility] Mergiwuwzj[address] [place] [address]Dr. Swathi Reis Glucose Ql (U) Negative Normal NEGATIVE [facility] Comment on above: Performed By: #### REYNOLD SOSA ####[facility] Cbprdfnlsu30[address] [place] [address]Dr. Inessatracy Reis Hemoglobin Ql (U) TRACE-INTACT Abnormal NEGATIVE [facility] Comment on above: Performed By: #### ROMEO SOSARO ####[facility] Vauatprcma[address] [place], [place] [address]Dr. Swathi Reis Ketones Ql (U) Negative Normal NEGATIVE [facility] Comment on above: Performed By: #### ROMEO SOSARO ####[facility] Krqybfbcbw[address] [place], [place] [address]Dr. Swathi Reis LEUKOCYTES Negative Normal NEGATIVE [facility] Comment on above: Performed By: #### REYNOLD SOSA ####[facility] Tncerogeju[address] [place], [place] [address]Dr. Inessatracy Reis Nitrite Ql (U) Negative Normal NEGATIVE [facility] Comment on above: Performed By: #### REYNOLD SOSA ####[facility] Mrorfedzez[address] [place], [place] [address]Dr. Inessatracy Reis pH (U) 6.0 [pH] Normal 5-9 [facility] Comment on above: Performed By: #### REYNOLD SOSA ####[facility] Neiktfhumc[address] [place], [place] [address]Dr. Swathi Reis SPEC GRAVITY 1.010 Normal 1.005-<=1.0 25 [facility] Comment on above: Performed By: #### REYNOLD SOSA ####[facility] Abuolbyzub[address] [place], [place] [address]Dr. Swathi Reis UA PROTEIN TRACE Normal NEGATIVE/ TRACE [facility] Comment on above: Performed By: #### REYNOLD SOSA ####[facility] Fgucpdfwoc[address] [place], [place] [address]Dr. Swathi Reis UR MICRO IND INDICATED Normal [facility] Comment on above: Performed By: #### REYNOLD SOSA ####[facility] Uhynhlonga0258 [place] [address]Dr. Swathi Reis Urobilinogen Qn (U) 0.2 {Sánchez'U}/dL Normal 0.2 - 1. 0 [facility] Comment on above: Performed By: #### REYNOLD SOSA ####[facility] Drjulrfmec79[address] [place] [address]Dr. Swathi Reis PROF 14(COMP METB)on 022 Albumin [Mass/Vol] 3.5 g/dL Normal 3.5-5.0 [facility] Comment on above: Performed By: #### C MADM, CMP, BNP ####[facility] Zzkcdysrzz[address] [place] [address]Dr. Swathi Reis Albumin/Globulin [Mass ratio] 1.0 {ratio} Normal [facility] Comment on above: Performed By: #### C MADM, CMP, BNP ####[facility] Ldzulhbcwf1178 [place] [address]Dr. Swathi Reis ALP [Catalytic activity/Vol] 93 U/L Normal 38-126 [facility] Comment on above: Performed By: #### C MADM, CMP, BNP ####[facility] Mvsndegiuq0851 [place] [address]Dr. Swathi Reis ALT [Catalytic activity/Vol] 22 U/L Normal 9-52 [facility] Comment on above: Performed By: #### C MADM, CMP, BNP ####[facility] Nrnlcioigr4291 [place] [address]Dr. Swathi Reis Anion gap [Moles/Vol] 15.4 mmol/L Normal [facility] Comment on above: Performed By: #### C MADM, CMP, BNP ####[facility] Fjithewwfh[address] [place] [address]Dr. Swathi Reis AST [Catalytic activity/Vol] 21 U/L Normal 14-36 [facility] Comment on above: Performed By: #### C MADM, CMP, BNP ####[facility] Gynmrestcb4565 [place] [address]Dr. Swathi Reis Bilirubin [Mass/Vol] 0.7 mg/dL Normal 0.2-1.3 [facility] Comment on above: Performed By: #### C MADM, CMP, BNP ####[facility] Wokmtnhrfx5[address] [place] [address]Dr. Swathi Reis Calcium [Mass/Vol] 9.5 mg/dL Normal 8.4-10.2 [facility] Comment on above: Performed By: #### C MADM, CMP, BNP ####[facility] Sqtncdhamy[address] [place], [place] [address]Dr. Swathi Reis Chloride [Moles/Vol] 99 mmol/L Normal 98-107 [facility] Comment on above: Performed By: #### C MADM, CMP, BNP ####[facility] Jsfygerazx[address] [place], [place] [address]Dr. Swathi Reis CO2 [Moles/Vol] 31.0 mmol/L Critically high 22.0-30.0 [facility] Comment on above: Performed By: #### C MADM, CMP, BNP ####[facility] Kiuizzfefn[address] [place], [place] [address]Dr. Swathi Reis Creatinine [Mass/Vol] 1.10 mg/dL Critically high 0.52-1.04 [facility] Comment on above: Performed By: #### C MADM, CMP, BNP ####[facility] Hormlrfvnb6[address] [place] [address]Dr. Swathi Reis EGFR-AF BAHRAINI 58 mL/min/1.73m2 Critically low >=60 [facility] Comment on above: Performed By: #### C MADM, CMP, BNP ####[facility] [address]zov[address]jt[address] [place], [place] [address]Dr. Swathi Reis EGFR-NON AF BAHRAINI 48 mL/min/1.73m2 Critically low >=60 [facility] Comment on above: Performed By: #### C MADM, CMP, BNP ####[facility] [address]oz[address]kexdbh[address] [place] [address]Dr. Swathi Reis Globulin (S) [Mass/Vol] 3.5 g/dL Normal [facility] Comment on above: Performed By: #### C MADM, CMP, BNP ####[facility] [address] [place] [address]Dr. Swathi Reis Glucose [Mass/Vol] 203 mg/dL Critically high 74-106 [facility] Comment on above: Performed By: #### C MADM, CMP, BNP ####[facility] [address]mbsxpanyh[address] [place] [address]Dr. Swathi Reis Potassium [Moles/Vol] 4.4 mmol/L Normal 3.4-5.0 [facility] Comment on above: Performed By: #### C MADM, CMP, BNP ####[facility] [address]vijttoiqd[address] [place] [address]Dr. Swathi Reis Protein [Mass/Vol] 7.0 g/dL Normal 6.1-8.2 [facility] Comment on above: Performed By: #### C MADM, CMP, BNP ####[facility] [address] [place], [place] [address]Dr. Swathi Reis Sodium [Moles/Vol] 141 mmol/L Normal 137-145 [facility] Comment on above: Performed By: #### C MADM, CMP, BNP ####[facility] Qbexrkxfcm[address] [place] [address]Dr. Swathi Reis Urea nitrogen [Mass/Vol] 21.0 mg/dL Critically high 7.0-17.0 [facility] Comment on above: Performed By: #### C MADM, CMP, BNP ####[facility] Ulwuitpr[address] [place], [place] [address]Dr. Swathi Reis Urea nitrogen/Creatinine [Mass ratio] 19.1 mg/mg Normal [facility] Comment on above: Performed By: #### C MADM, CMP, BNP ####[facility] [address] [place], [place] [address]Dr. Swathi Reis PROTIMEon 11-09-2021 INR Coag (PPP) [Relative time] 1.09 {INR} Normal [facility] Comment on above: Performed By: #### P T, PTT ####[facility] Se[address] [place], [place] [address]Dr. Swathi Reis INR GUIDELINES SEE BELOW Normal [facility] Comment on above: Result Comment: HARRIETT RED INR: 2.0 - 3.0 CONDITIONS NOT LISTED BELOW 2.5 - 3.5 FOR PROSTHETIC HEART VALVE REPLACEMENT 2.5 - 3.5 RECURRENT THROMBOSIS Performed By: #### P T, PTT ####[facility] Iyardtwjmt[address] [place], [place] [address]Dr. Swathi Reis PT Coag (PPP) [Time] 11.7 s Critically high 9.0-11.6 [facility] Comment on above: Performed By: #### P T, PTT ####[facility] E[address]ygen[address] [place], [place] [address]Dr. Swathi Reis INR Coag (PPP) [Relative time] 3.45 {INR} Normal [facility] Comment on above: Performed By: #### P TT, PT ####[facility] C[address]wdf[address] [place], [place] [address]Dr. Swathi Reis INR GUIDELINES SEE BELOW Normal [facility] Comment on above: Result Comment: HARRIETT RED INR: 2.0 - 3.0 CONDITIONS NOT LISTED BELOW 2.5 - 3.5 FOR PROSTHETIC HEART VALVE REPLACEMENT 2.5 - 3.5 RECURRENT THROMBOSIS Performed By: #### P TT, PT ####[facility] Owfcbretme[address] [place], [place] [address]Dr. Swathi Reis PT Coag (PPP) [Time] 34.4 s Critically high 9.0-11.6 [facility] Comment on above: Performed By: #### P TT, PT ####[facility] Ojetviafjp[address] [place], [place] [address]Dr. Swathi Reis PTTon 11-09-2021 aPTT Coag (Bld) [Time] 25.9 s Normal 22.3-36.2 [facility] Comment on above: Performed By: #### P T, PTT ####[facility] [address] [place] [address]Dr. Swathi Chato aPTT Coag (Bld) [Time] 39.1 s Critically high 22.3-36. 2 [facility] Comment on above: Performed By: #### P TT, PT ####[facility] [address] [place] [address]Dr. Swathi Reis TYPE AND SCREENon 11-09-2021 TYPE AND SCREEN Negative Normal [facility] Comment on above: Performed By: #### T NS ####[facility] [address] [place], [place] [address]Dr. Swathi Reis URINE MICROSCOPIC ONLYon BACTERIA NONE SEEN Normal NONE SEEN [facility] Comment on above: Performed By: #### Amaury WATERS UMICRO ####[facility] [address] [place], [place] [address]Dr. Swathi Reis Bacteria identified Cx Nom (U) NOT INDICATED Normal [facility] Comment on above: Performed By: #### Amaury WATERS UMICRO ####[facility] Qziid[address]xcl[address] [place], [place] [address]Dr. Swathi Reis CAST NONE SEEN Normal NONE SEEN [facility] Comment on above: Performed By: #### Amaury WATERS UMICRO ####[facility] L[address]nwep[address] [place], [place] [address]Dr. Swathi Reis Crystals LM Nom (Urine sed) NONE SEEN Normal NONE SEEN [facility] Comment on above: Performed By: #### Amaury WATERS UMICRO ####[facility] [address] [place], [place] [address]Dr. Swathi Reis Epithelial cells LM Ql (Urine sed) FEW Abnormal NONE SEEN /RARE [facility] Comment on above: Performed By: #### Amaury WATERS UMICRO ####[facility] [address] [place] [address]Dr. Swathi Reis MUCOUS NONE SEEN Normal NONE SEEN [facility] Comment on above: Performed By: #### Amaury WATERS UMICRO ####[facility] [address] [place], [place] [address]Bw. Swathi Reis RBC 2-5 Abnormal 0-2 [facility] Comment on above: Performed By: #### REYNOLD SOSA ####[facility] [address] [place], [place] [address]Kr. Swathi Reis WBC NONE SEEN Normal NONE SEEN [facility] Comment on above: Performed By: #### REYNOLD SOSA ####[facility] [address] [place], [place] [address]If. Swathi Reis XR CHEST 1 Von 11-09-2021 XR CHEST 1 V Normal [facility] Coding Summary.on 09-14-2020 Coding Summary. CODING DATE: 020 [facility] STATUS: Short-Term Hosp as IP PAYOR: Medicare [...] Revised Date Saved: 09/14/2020 08:26 am Normal [facility] EMS Documentationon 09-12-20 20 EMS Documentation [id number] Normal [facility] ED Clinical Summaryon 2019 ED Clinical Summary (Inserted Image. Vae ble to display) [place] [id number] ED Clinical Summary Person Information Name: ANDREW BARROS[place] Age: 74 Years : 1945 Sex: Female Language: Bhutanese PCP: Eduardo Sharpe MD Marital Status: Phone: [phone] Visit Id: Visit Reason: Shortness of breath; [...] 09/09/2020 23:10:35 09/09/2020 23:10:35 09/09/2020 23:10:35 ADDRESS: [address] [place] [address] PHYS DOC NOTES: Addendum by Hayder Pettit DO on September 09, 2020 18:55:26 EST MEDICAL INFORMATION: Prescriptions Given: Medications to Continue with No Changes Other Medications insulin aspart (NovoLog) 8 Units Subcutaneous every day. nitroglycerin nitroglycerin (nitroglycerin 0.4 mg sublingual Tab) 1 Tablets Sublingual every 5 minutes as needed for chest pain. PATIENT EDUCATION INFORMATION: Instructions: Follow up: DIAGNOSIS: COVID-19; Hypoxemia; Pneumonia Normal [facility] ED Patient Education Noteon 09-10-2020 ED Patient Education Note Normal [facility] ED Patient Summaryon 020 ED Patient Summary (Inserted Image. Ave ble to display) [address] [address] Patient Discharge Instructions Person Information Name: ANDREW BARROS Age: 74 Years Arrival Date: 09/09/2020 12:32:39 Discharge Diagnosis: COVID-19; Hypoxemia; Pneumonia Primary Care Physician: Eduardo Sharpe MD Provider Information Primary Provider: Hayder Pettit DO [employer] Supervisor:None The exam and treatment you received in the Emergency Department were for an urgent problem and are not intended as complete care. It is important that you follow up with a doctor, nurse practitioner, or physician?s therapy administrative assistant for ongoing care. If your symptoms become worse or you do not improve as expected and you are unable to reach your usual health care provider, you should return to the Emergency Department. We are available 24 hours a day. ROSA BARROSENCE has been given the following list of [...] opioids can be used to help relieve zeqnhzcc-po-zjygfq pain and are often prescribed following a [...] guidance from the Food and Drug Administration (www.fda.gov/Drugs/Resour cesForYou). ? Visit www.cdc.gov/drugoverdose to learn about the risks of opioids abuse and overdose. ? If you believe you may be struggling with addiction, tell your health career services officer and ask for guidance or call [facility] National Helpline at 6-055-416-CABS. m Source: US Department of Health and Human Services/Center for Disease Control & Prevention [facility] Medications Given: Medication Dose Route levo (more content not included)... Normal [facility] Progress Note-Nurseinna 2019 Progress Note-Nurse [facility] at bedside receiving report and preparing patient for transport to [facility]. pt taken off high flow NC and placed on non rebreather at 15L/min o2 for traansport. Normal [facility] Troponin 9 Hr.on 09-10-2020 Troponin I.cardiac [Mass/Vol] 57.60 pg/mL Abnormal 10.10-27.10 [facility] Comment on above: Result Comment: Crit [...] Sensitivity Troponin I Instructions For Use, [place], April 2018) Performed By: #### 1 [id number] ####[facility] [address] [place] [address] .Manual Abson 09-09-2020 Basophils/Leukocytes Manual cnt (Bld) [Pure # fraction] 0.0 E9/L Normal 0.0-0.2 [facility] Comment on above: Performed By: #### 1 1990440, 7665453, 0091482, 1939482, 71413564, 35259802, 4907454, 87872114, 82991935 #### [facility] [address] [place] [address] Eosinophils/Leukocytes Manual cnt (Bld) [Pure # fraction] 0.0 E9/L Normal 0.0-0.5 [facility] Comment on above: Performed By: #### 1 5793840, 3015607, 8958260, 4875747, 25798935, 72694653, 4066345, 14416092, 81104838 #### [facility] [address] [place] [address] Lymphocytes/Leukocytes Manual cnt (Bld) [Pure # fraction] 0.4 E9/L Low 1.0-4.0 [facility] Comment on above: Performed By: #### 1 3914165, 1311274, 6846842, 6910413, 16739705, 99064421, 8537635, 04660123, 55192152 #### [facility] [address] [place] [address] Monocytes/Leukocytes Manual cnt (Bld) [Pure # fraction] 1.5 E9/L High 0.2-1.0 [facility] Comment on above: Performed By: #### 1 9501573, 8255889, 4664730, 6813556, 59782916, 29942784, 8724742, 07008573, 56464227 #### [facility] [address] [place] [address] Neutrophils/Leukocytes Auto (Bld) [Pure # fraction] 18.9 E9/L High 2.0-7.5 [facility] Comment on above: Performed By: #### 1 0461946, 4427140, 2394065, 8683432, 62635285, 83380233, 1019542, 84394386, 49802718 #### [facility] [address] [place] [address] BMP 09-09-2020 Creatinine [Mass/Vol] 1.1 mg/dL Normal 0.5-1.3 [facility] Comment on above: Performed By: #### 1 0115061, 6484701, 3065335, 4024213, 11515399, 31075036, 6179018, 25640078, 47304533 #### [facility] [address] [place] [address] Urea nitrogen [Mass/Vol] 26 mg/dL High 5-21 [facility] Comment on above: Performed By: #### 1 3386197, 4474002, 8755373, 7377614, 59067565, 13120178, 9936735, 77194483, 16805271 #### [facility] [address] [place] [address] Urea nitrogen/Creatinine [Mass ratio] 24 No Units High 10-20 [facility] Comment on above: Performed By: #### 1 7012018, 6636006, 1696404, 4838933, 90982467, 17073114, 6997564, 66329149, 38287943 #### [facility] [address] [place] [address] Anion gap [Moles/Vol] 14 mmol/L Normal 6-16 [facility] Comment on above: Performed By: #### 1 5638604, 3651673, 6854146, 1808777, 06317675, 70823746, 1553936, 35540758, 20614851 #### [facility] [address] [place] [address] Calcium [Mass/Vol] 8.7 mg/dL Low 8.9-11.1 [facility] Comment on above: Performed By: #### 1 6949229, 6266580, 6179989, 0661483, 60467266, 00311818, 8880239, 03075823, 30249372 #### [facility] [address] [place] [address] Chloride [Moles/Vol] 104 mmol/L Normal 101-111 [facility] Comment on above: Performed By: #### 1 4691563, 7033718, 5801030, 9774917, 93890087, 10955324, 9242756, 71273662, 21619141 #### [facility] [address] [place] [address] CO2 [Moles/Vol] 23 mmol/L Normal 21-31 [facility] Comment on above: Performed By: #### 1 8131751, 8292348, 6768580, 6126537, 77468624, 19041595, 1499943, 93798072, 81935248 #### [facility] [address] [place] [address] Glucose [Mass/Vol] 256 mg/dL High 55-199 [facility] Comment on above: Result Comment: If t his glucose result represents a fasting glucose, interpretation should refer to the following reference range: 55-99 mg/dL Performed By: #### 1 6611492, 0662880, 4666045, 8262553, 52375877, 29629654, 9567695, 85655155, 44485076 #### [facility] [address] [place] [address] Potassium [Moles/Vol] 4.9 mmol/L Normal 3.5-5.3 [facility] Comment on above: Performed By: #### 1 3507061, 8633589, 5006662, 1482778, 74149139, 37744029, 9774969, 71894016, 78041611 #### [facility] [address] [place] [address] Sodium [Moles/Vol] 136 mmol/L Normal 135-145 [facility] Comment on above: Performed By: #### 1 2477042, 3017611, 9660827, 1197172, 94899186, 46613111, 6550381, 33475847, 64528397 #### [facility] [address] [place] [address] BNPon 09-09-2020 Int Ctr BNP Pass Normal [facility] Comment on above: Performed By: #### 1 6596992, 9571320, 7389358, 1307553, 63885754, 72753025, 7358105, 75781980, 14907515 ####[facility] [address] [place] [address] Natriuretic peptide B (Bld) [Mass/Vol] 477 pg/mL High 5-80 [facility] Comment on above: Performed By: #### 1 0204397, 2683399, 2831594, 0271159, 01800787, 59328114, 9991300, 21349115, 15887457 ####[facility] [address] [place] [address] Bld Gas Arton 09-09-2020 a/A Ratio Art 37.50 Normal >=0.80 [facility] Comment on above: Performed By: #### 1 8681151 ####[facility] [address] [place] [address] AaDO2 Art 144.6 High 5.0-15.0 [facility] Comment on above: Performed By: #### 1 4255607 ####[facility] [address] [place] [address] Allens Test Positive Invalid Interpretation Code [facility] Comment on above: Result Comment: [facility] Department of Pulmonary Medicine [address] [place] [address] Performed By: #### 1 9930762 ####[facility] [address] [place] [address] Base excess Calc (Bld) [Moles/Vol] -1.8000 mmol/L Low >=2.8 [facility] Comment on above: Performed By: #### 1 6216697 ####[facility] [address] [place] [address] Called By: MISHA Invalid Interpretation Code [facility] Comment on above: Performed By: #### 1 9500762 ####[facility] [address] [place] [address] Called To: COLTON Invalid Interpretation Code [facility] Comment on above: Performed By: #### 1 6760081 ####[facility] [address] [place] [address] cCa2+ Art 4.93 mg/dL Normal 4.40-5.30 [facility] Comment on above: Performed By: #### 1 5421620 ####[address] [address] cCl- Art 106.0 mmol/L Normal 101.0-111.0 [facility] Comment on above: Performed By: #### 1 2936761 ####[facility] [address] [place] [address] cGlu Art 262.0 mg/dL High 55.0-199.0 [facility] Comment on above: Result Comment: 83 Performed By: #### 1 0759535 ####[facility] [address] [place] [address] cK+ Art 4.9 mmol/L Normal 3.5-5.3 [facility] Comment on above: Performed By: #### 1 9480529 ####[facility] [address] [place] [address] cLac Art 1 mmol/L Low 5-14 [facility] Comment on above: Performed By: #### 1 5712065 ####[facility] [address] [place] [address] purchase analyst+ Art 140.0 mmol/L Normal 135.0-145.0 [facility] Comment on above: Performed By: #### 1 8749659 ####[facility] [address] [place] [address] CO2 (Bld) [Partial pressure] 45.5 mm[Hg] High 35.0-45.0 [facility] Comment on above: Result Comment: 83 Performed By: #### 1 7258415 ####[facility] [address] [place] [address] Device NASAL Invalid Interpretation Code [facility] Comment on above: Performed By: #### 1 1704799 ####[place] [address] [place] [address] Drawn by TSB Invalid Interpretation Code [facility] Comment on above: Performed By: #### 1 4868579 ####[address] [place] [address] Dt/Tm Notified 12:54:00 Invalid Interpretation Code [facility] Comment on above: Performed By: #### 1 7903299 ####[address] [facility] [place] [address] FCOHb Art 1.1 % Low 1.5-4.9 [facility] Comment on above: Result Comment: 84 Reference range Nonsmoker <1.5% Smoker <5.0% Heavy Smoker <9.0% Performed By: #### 1 8008788 ####[place] [address] [place] [address] FIO2 BG 40.0 Invalid Interpretation Code [facility] Comment on above: Performed By: #### 1 3886634 ####[place] [address] [place] [address] Flow 5.00 Invalid Interpretation Code [facility] Comment on above: Performed By: #### 1 4476762 ####[place] [address] [place] [address] FMetHb Art 0.6 % Normal 0.0-1.9 [facility] Comment on above: Performed By: #### 1 9671258 ####[place] [address] [place] [address] FO2Hb Art 94.9 % Normal 92.0-100.0 [facility] Comment on above: Performed By: #### 1 5399659 ####[address] [address] HCO3 (Bld) [Moles/Vol] 22.9 mmol/L Normal 22.0-26.0 [facility] Comment on above: Performed By: #### 1 7109473 ####[address] [address] Hemoglobin (Bld) [Mass/Vol] 9.9 g/dL Low 12.0-16.0 [facility] Comment on above: Result Comment: 84 Performed By: #### 1 0314131 ####[address] [address] Oxygen saturation in Blood 96.6 % Normal 95.0-100.0 [facility] Comment on above: Performed By: #### 1 5876770 ####[address] [address] P O2 Arterial 86.6 mmHg Normal 80.0-100.0 [facility] Comment on above: Performed By: #### 1 4018574 ####[address] [address] pH (Bld) 7.333 [pH] Low 7.350-7.450 [facility] Comment on above: Result Comment: 84 Performed By: #### 1 3830956 ####[address] [address] Sample Site RR Invalid Interpretation Code [facility] Comment on above: Performed By: #### 1 6059589 ####[address] [address] Sample Type Arterial Invalid Interpretation Code [facility] Comment on above: Performed By: #### 1 7902904 ####[address] [address] CBC w/ Auto Diffon 0 Erythrocyte distribution width (RBC) [Ratio] 15.1 % High 10.9-14.2 [facility] Comment on above: Performed By: #### 1 4397111, 8675292, 3991831, 2214776, 52737249, 74070570, 7947578, 70891687, 24215258 #### [facility] [address] [place] [address] Hematocrit (Bld) [Volume fraction] 30.7 % Low 34.0-46.0 [facility] Comment on above: Performed By: #### 1 0532900, 3957642, 3059938, 2489483, 73357029, 51381720, 5464108, 33831642, 35938162 #### [facility] [address] [place], [place] [address] Hemoglobin (Bld) [Mass/Vol] 9.9 g/dL Low 12.0-16.0 [facility] Comment on above: Performed By: #### 1 6439922, 7657797, 0547388, 8732482, 07326867, 79059132, 3493769, 45419825, 31217512 #### [facility] [address] [place] [address] MCH (RBC) [Entitic mass] 29.7 pg Normal 27.0-34.0 [facility] Comment on above: Performed By: #### 1 3145459, 4670833, 8563170, 1067813, 10141843, 14745610, 0675956, 48046922, 15261534 #### [facility] [address] [place] [address] MCHC (RBC) [Mass/Vol] 32.2 g/dL Normal 31.4-36.0 [facility] Comment on above: Performed By: #### 1 5409850, 0377517, 3579909, 7556379, 53828951, 14466080, 0314196, 45172853, 36358893 #### [facility] [address] [place] [address] MCV (RBC) [Entitic vol] 92.3 fL Normal 80.0-100.0 [facility] Comment on above: Performed By: #### 1 3730552, 1797898, 1145560, 9457853, 85283682, 64331922, 8356677, 73408129, 92890410 #### [facility] [address] [place] [address] Platelet mean volume (Bld) [Entitic vol] 8.4 fL Normal 6.4-10.8 [facility] Comment on above: Performed By: #### 1 4118435, 0639436, 1344347, 9689143, 42144489, 55045618, 3174666, 65291982, 68095717 #### [facility] [address] [place] [address] Platelets (Bld) [#/Vol] 243.0 E9/L Normal 150.0-500.0 [facility] Comment on above: Performed By: #### 1 6041843, 1362382, 5226333, 5480575, 21247695, 98254973, 4326399, 02605881, 55813468 #### [facility] [address] [place] [address] RBC (Bld) [#/Vol] 3.3 E12/L Low 4.3-5.9 [facility] Comment on above: Performed By: #### 1 3454650, 6234510, 9679990, 9904505, 92980576, 48095830, 2553122, 33743251, 75026462 #### [facility] [address] [place] [address] WBC corrected for nucl RBC Auto (Bld) [#/Vol] 21.7 E9/L High 4.0-11.0 [facility] Comment on above: Performed By: #### 1 1768224, 5427766, 3150274, 8068311, 06806391, 14058480, 0510373, 12960971, 21028977 #### [facility] [address] [place] [address] CTA Cheston 09-09-2020 CTA Chest Exam Date/Time: [...] 370 Contrast amount in ml's: 66 Normal [facility] Consent for Treatmenton 08-23 Consent for Treatment [id number]:127 Normal [facility] D-Dimeron 09-09-2020 Fibrin D-dimer FEU (PPP) [Mass/Vol] 1480 ng/mL Abnormal 215-500 [facility] Comment on above: Result Comment: Resu [...] infections Liver cirrhosis Performed By: #### 1 2693672, 7694862, 3455532, 8700776, 46491614, 66100939, 8527958, 51142671, 78036998 ####[facility] [address] [place] [address] ED Note-Physicianon 09-09-20 ED Note-Physician Basic Information Time Seen: Colton GIBBSHayder 09/09/2020 12:35 Chief Complaint Sent from [facility] for increased SOB and low oxygen level. Covid positive about 2 weeks ago per EMS History of Present Illness 74 female presents to the emergency department with shortness of breath. [facility] [place] with Covid positive testing about 2 weeks [...] does not normally wear oxygen at the [place] [facility]. No other aggravating or relieving factors no other associated symptoms no other prior treatments or complaints. Family: Reviewed and noncontributory Social: lives at [facility] Review of systems negative unless otherwise specified [...] (09/09/20 13 (more content not included)... Normal [facility] Comment on above: Result Comment: Elec tronically Signed By: Hayder Pettit DO\.br\Date and Time Signed: 09/09/20 18:56 EST Lactic Acidon 09-09-2020 Lactate [Mass/Vol] 1.0 mmol/L Normal 0.5-2.2 [facility] Comment on above: Performed By: #### 2 395328 ####[facility] [address] [place] [address] Manual Diffon 09-09-2020 Band form neutrophils/100 WBC (Bld) 6 % Normal 0-10 [facility] Comment on above: Order Comment: Order Added by Discern Expert. Performed By: #### 1 [id number], 8658770, 0919182, 0662495, 21556029, 84595019, 4002140, 83187621, [id number] #### [facility] [address] [place] [address] Basophils/100 WBC (Bld) 0 % Normal 0-2 [facility] Comment on above: Order Comment: Order Added by Discern Expert. Performed By: #### 1 [id number], 2098529, 4580109, 9614037, 12445193, 62646613, 1056789, 41287704, 60140818 #### [facility] [address] [place] [address] Eosinophils/100 WBC (Bld) 0 % Normal 0-8 [facility] Comment on above: Order Comment: Order Added by Discern Expert. Performed By: #### 1 [id number], 8317320, 1030738, 2075157, 57374560, 97010593, 9278642, 15366248, 85996385 #### [facility] [address] [place] [address] Lymphocytes/100 WBC (Bld) 2 % Low 14-50 [facility] Comment on above: Order Comment: Order Added by Discern Expert. Performed By: #### 1 [id number], 7719476, 6752026, 0544689, 49211219, 19743858, 4277848, 93888753, 13180899 #### [facility] [address] [place] [address] Metamyelocytes/Leukocy sade Manual cnt (Bld) [Pure # fraction] 2 % High <=0 [facility] Comment on above: Order Comment: Order Added by Discern Expert. Performed By: #### 1 [id number], 3980449, 7993834, 7633433, 49570082, 92258995, 7825635, 06203217, 16892143 #### [facility] [address] [place] [address] Monocytes/100 WBC (Bld) 7 % Normal 4-14 [facility] Comment on above: Order Comment: Order Added by Discern Expert. Performed By: #### 1 7369572, 3079922, 1730700, 4927745, 50108459, 78659714, 6999822, 71916578, 91073284 #### [facility] [address] [place] [address] Morphology Elie (Bld) [Interp] Normal Normal [facility] Comment on above: Order Comment: Order Added by Discern Expert. Performed By: #### 1 9774685, 6897829, 5654531, 4141279, 20023906, 25787888, 1270688, 81015474, 94218767 #### [facility] [address] [place] [address] Myelocytes/100 WBC (Bld) 2 % High <=0 [facility] Comment on above: Order Comment: Order Added by Discern Expert. Performed By: #### 1 4266798, 7092441, 1327779, 5095969, 30594865, 09616112, 5656687, 14414756, 75851580 #### [facility] [address] [place] [address] Nucleated cells (Bld) [#/Vol] 1 High <=0 [facility] Comment on above: Order Comment: Order Added by Discern Expert. Performed By: #### 1 [id number], 0296829, 1192482, 0923918, 50489218, 69154316, 3690250, 70108096, 61638297 #### [facility] [address] [place] [address] Segmented neutrophils/100 WBC (Bld) 81 % High 36-75 [facility] Comment on above: Order Comment: Order Added by Discern Expert. Performed By: #### 1 5005821, 6823867, 9733604, 2255200, 05534274, 20659983, 3326521, 19594602, 35792293 #### [facility] [address] [place] [address] Variant lymphocytes LM Ql (Bld) 0 % Invalid Interpretation Code [facility] Comment on above: Order Comment: Order Added by Discern Expert. Performed By: #### 1 2631809, 7326106, 2439270, 6287906, 63687714, 00638807, 2759381, 86442791, 34004213 #### [facility] [address] [place] [address] PTon 09-09-2020 INR Coag (PPP) [Relative time] 1.9 {INR} Invalid Interpretation Code [facility] Comment on above: Result Comment: INR results are specifically intended to assess patients stabilized on long-term Anticoagulation therapy suggested INR?s ?Less Intensive Anticoagulation? 2.0 ? 3.0 Conventional Range 3.0 ? 4.5 Performed By: #### 2 646539, 6647427 ####[facility] [address] [place] [address] PT Coag (PPP) [Time] 22.8 second(s) High 10.2-12.9 [facility] Comment on above: Performed By: #### 2 424190, 4550841 ####[facility] [address] [place] [address] PT & PTTon 09-09-2020 aPTT Coag (PPP) [Time] 31.7 second(s) Normal 25.1-36.5 [facility] Comment on above: Result Comment: Hepa rin therapeutic range (represented by Anti-Factor Xa activity of 0.2 - 0.4 U/mL) corresponds to PTT of 56.6 - 109.0 sec. Performed By: #### 1 9272837, 0810053, 7531023, 6840602, 88726888, 76272391, 1766151, 35065601, 98602549 ####[facility] [address] [place] [address] INR Coag (PPP) [Relative time] 2.0 {INR} Invalid Interpretation Code [facility] Comment on above: Result Comment: INR results are specifically intended to assess patients stabilized on long-term Anticoagulation therapy suggested INR?s ?Less Intensive Anticoagulation? 2.0 ? 3.0 Conventional Range 3.0 ? 4.5 Performed By: #### 1 2288915, 4941359, 8428973, 9399754, 49737029, 36212050, 9243244, 33874501, 51634938 ####[facility] [address] [place] [address] PT Coag (PPP) [Time] 23.6 second(s) High 10.2-12.9 [facility] Comment on above: Performed By: #### 1 5841731, 7324374, 2626911, 4532500, 31631797, 29855984, 3268532, 96187889, 40691233 ####[facility] [address] [place] [address] PTTon 09-09-2020 aPTT Coag (PPP) [Time] 30.4 second(s) Normal 25.1-36.5 [facility] Comment on above: Result Comment: Hepa rin therapeutic range (represented by Anti-Factor Xa activity of 0.2 - 0.4 U/mL) corresponds to PTT of 56.6 - 109.0 sec. Performed By: #### 2 862960, 0126125 ####[facility] [address] [place] [address] Progress Note-Nurseon 2019 Progress Note-Nurse Pt care report provi ded to JARRET Hirsch. Pts family member, Rosenda updated on pt status. Pres[place] [facility] [place] [facility] [address] Normal [facility] Progress Note-Nurse Pt care report alan d to [facility] Zach, advised of family contact information and will send SNF paperwork with patient. Normal [facility] Progress Note-Nurse Pts daughter, Rosenda updated on pt transfer and condition. Rosenda: [phone] Pts family sts pt is under extreme stress, pts spouse yesterday due to COVID infection. Normal [facility] Progress Note-Nurse Pts son updated on p t condition, presently awating updated order set. Pt returns from CT, RT at bedside for high flow o2 placement. Normal [facility] Progress Note-Nurse IV ABx completed at this time, pt to CT Normal [facility] Progress Note-Nurse Pt c/o increased dys pnea, spo2 reading 89% oxygen increased to 6lpm, nasal cannula. made aware, requests RT for high flow oxygen therapy Normal [facility] Progress Note-Nurse Advised per CT that IV no longer infuses/flushes, await IV access at this time via US. Normal [facility] Progress Note-Nurse Pt to imaging at thi s time. Normal [facility] Troponin 0 Hr.on 09-09-2020 Troponin I.cardiac [Mass/Vol] 10.10 pg/mL Normal 10.10-27.10 [facility] Comment on above: Result Comment: The 95% CI (Confidence Interval) PPV (Positive Predictive Value) for myocardial infarction in females is 38 pg/mL, in males 51 pg/mL. The results should be used in conjunction with clinical conditions of myocardial infarction. (Access High Sensitivity Troponin I Instructions For Use, Uziel Ondore, April 2018) Performed By: #### 1 [id number], 6730139, 6282581, 2260799, 53943509, 78982838, 0052261, 24419709, 92007370 ####[facility] [address] [place] [address] Troponin 3 Hr.on 09-09-2020 Troponin I.cardiac [Mass/Vol] 20.20 pg/mL Normal 10.10-27.10 [facility] Comment on above: Result Comment: The 95% CI (Confidence Interval) PPV (Positive Predictive Value) for myocardial infarction in females is 38 pg/mL, in males 51 pg/mL. The results should be used in conjunction with clinical conditions of myocardial infarction. (Access High Sensitivity Troponin I Instructions For Use, [employer], April 2018) Performed By: #### 1 [id number] ####[facility] [address] [place] [address] Troponin 6 Hr.on 09-09-2020 Troponin I.cardiac [Mass/Vol] 37.60 pg/mL High 10.10-27.10 [facility] Comment on above: Result Comment: The 95% CI (Confidence Interval) PPV (Positive Predictive Value) for myocardial infarction in females is 38 pg/mL, in males 51 pg/mL. The results should be used in conjunction with clinical conditions of myocardial infarction. (Access High Sensitivity Troponin I Instructions For Use, [employer], April 2018) Performed By: #### 1 [id number] #### [facility] [address] [place] [address] XR Chest Single Viewon 09-09 XR Chest [...] abnormality. FINAL REPORT Dictated: 09/09/2020 1:29 pm Mahogany Mcclendon DO Signed (Electronic Signature): 09/09/2020 1:29 pm Signed by: Mahogany Mcclendon DO Transcribed by: MATTHEW Technologist: GARMENT PATTERNMAKER Normal [facility] eGFRon 09-09-2020 GFR/1.73 sq M.predicted among blacks MDRD (S/P/Bld) [Vol rate/Area] 59 mL/min/1.73 m2 Normal >=59 [facility] Comment on above: Order Comment: Order added by Discern Expert. Result Comment: eGFR is race adjusted. AA=. Performed By: #### 1 [id number], 8816645, 8003458, 8404346, 40198460, 67614123, 5365631, 26384610, 54489871 #### [facility] [address] [place] [address] GFR/1.73 sq M.predicted among non-blacks MDRD (S/P/Bld) [Vol rate/Area] 48 mL/min/1.73 m2 Low >=59 [facility] Comment on above: Order Comment: Order added by Discern Expert. Result Comment: Gear Shaper les kidney disease could be indicated at eGFR's of less than 60 mL/min/1.73m2. Kidney failure is indicated at less than 15 mL/min/1.73m2. Performed By: #### 1 [id number], 0162929, 5679318, 1915458, 34194818, 56474856, 3715915, 40760639, 51508374 #### [facility] [address] [place] [address] Vital Signs Date Time Vital Sign Value Performing Clinician Facility 05-26-2024 11:08-0400 Diastolic blood pressure 67 mm[Hg] MD Eduardo Sharpe Work Phone: [facility] 05-26-2024 11:08-0400 Heart rate 60 /min MD Eduardo Sharpe Work Phone: [facility] 05-26-2024 11:08-0400 Respiratory rate 16 /min MD Eduardo Sharpe Work Phone: [facility] 05-26-2024 11:08-0400 SaO2% (BldA) [Mass fraction] 97 % MD Eduardo Sharpe Work Phone: [facility] 05-26-2024 11:08-0400 Systolic blood pressure 126 mm[Hg] MD Eduardo Sharpe Work Phone: [facility] 05-26-2024 08:44-0400 Body height 162.56 cm MD Eduardo Sharpe Work Phone: [facility] 05-26-2024 08:44-0400 Body weight 60.78 kg MD Eduardo Sharpe Work Phone: [facility] 02-24-2024 11:25-0400 Body height 160.2 cm Sandeep Lenz MD Work Phone: [facility] 02-24-2024 11:25-0400 Body mass index (BMI) [Ratio] 23.81 kg/m2 Sandeep Lenz MD Work Phone: [facility] 02-24-2024 11:25-0400 Body temperature 97.3 [degF] Sandeep Lenz MD Work Phone: [facility] 02-24-2024 11:25-0400 Body weight 61.1 kg Sandeep Lenz MD Work Phone: [facility] 02-24-2024 11:25-0400 Diastolic blood pressure 77 mm[Hg] Sandeep Lenz MD Work Phone: [facility] 02-24-2024 11:25-0400 Heart rate 63 /min Sandeep Lenz MD Work Phone: [facility] 02-24-2024 11:25-0400 Respiratory rate 16 /min Sandeep Lenz MD Work Phone: [facility] 02-24-2024 11:25-0400 SaO2% (BldA) [Mass fraction] 95 % Sandeep Lenz MD Work Phone: [facility] 02-24-2024 11:25-0400 Systolic blood pressure 155 mm[Hg] Sandeep Lenz MD Work Phone: [facility] 02-10-2024 13:22-0400 Body height 162.56 cm [facility] 02-10-2024 13:22-0400 Body mass index (BMI) [Ratio] 23.7 kg/m2 [facility] 02-10-2024 13:22-0400 Body temperature 99 [degF] [facility] 02-10-2024 13:22-0400 Body weight 62.73 kg [facility] 02-10-2024 13:22-0400 Diastolic blood pressure 80 mm[Hg] [facility] 02-10-2024 13:22-0400 Heart rate 66 /min [facility] 02-10-2024 13:22-0400 Respiratory rate 16 /min [facility] 02-10-2024 13:22-0400 SaO2% (BldA) [Mass fraction] 97 % [facility] 02-10-2024 13:22-0400 Systolic blood pressure 137 mm[Hg] [facility] 01-20-2024 15:20-0400 Body height 162.56 cm [facility] 01-20-2024 15:20-0400 Body mass index (BMI) [Ratio] 23.7 kg/m2 [facility] 01-20-2024 15:20-0400 Body temperature 97.4 [degF] [facility] 01-20-2024 15:20-0400 Body weight 62.76 kg [facility] 01-20-2024 15:20-0400 Diastolic blood pressure 79 mm[Hg] [facility] 01-20-2024 15:20-0400 Heart rate 73 /min [facility] 01-20-2024 15:20-0400 Respiratory rate 16 /min [facility] 01-20-2024 15:20-0400 SaO2% (BldA) [Mass fraction] 96 % [facility] 01-20-2024 15:20-0400 Systolic blood pressure 156 mm[Hg] [facility] 11-25-2023 14:38-0500 Body height 162.6 cm Sandeep Lenz MD Work Phone: [facility] 11-25-2023 14:38-0500 Body temperature 97.5 [degF] Sandeep Lenz MD Work Phone: [facility] 11-25-2023 14:38-0500 Body weight 63.9 kg Sandeep Lenz MD Work Phone: [facility] 11-25-2023 14:38-0500 Diastolic blood pressure 63 mm[Hg] Sandeep Lenz MD Work Phone: [facility] 11-25-2023 14:38-0500 Heart rate 70 /min Sandeep Lenz MD Work Phone: [facility] 11-25-2023 14:38-0500 Respiratory rate 18 /min Sandeep Lenz MD Work Phone: [facility] 11-25-2023 14:38-0500 SaO2% (BldA) [Mass fraction] 94 % Sandeep Lenz MD Work Phone: [facility] 11-25-2023 14:38-0500 Systolic blood pressure 144 mm[Hg] Sandeep Lenz MD Work Phone: [facility] 05-20-2023 15:10-0400 Body height 162.6 cm Sandeep Lenz MD Work Phone: [facility] 05-20-2023 15:10-0400 Body temperature 97.81 [degF] Sandeep Lenz MD Work Phone: [facility] 05-20-2023 15:10-0400 Body weight 58.88 kg Sandeep Lenz MD Work Phone: [facility] 05-20-2023 15:10-0400 Diastolic blood pressure 72 mm[Hg] Sandeep Lenz MD Work Phone: [facility] 05-20-2023 15:10-0400 Heart rate 68 /min Sandeep Lenz MD Work Phone: [facility] 05-20-2023 15:10-0400 Respiratory rate 16 /min Sandeep Lenz MD Work Phone: [facility] 05-20-2023 15:10-0400 SaO2% (BldA) [Mass fraction] 99 % Sandeep Lenz MD Work Phone: [facility] 05-20-2023 15:10-0400 Systolic blood pressure 168 mm[Hg] Sandeep Lenz MD Work Phone: [facility] 04-30-2023 14:20-0400 Body temperature 97.59 [degF] Chair [place] Work Phone: [facility] 04-30-2023 14:20-0400 Diastolic blood pressure 72 mm[Hg] Chair [place] Work Phone: [facility] 04-30-2023 14:20-0400 Heart rate 64 /min Chair [place] Work Phone: [facility] 04-30-2023 14:20-0400 Respiratory rate 16 /min Chair Marcos Work Phone: [facility] 04-30-2023 14:20-0400 SaO2% (BldA) [Mass fraction] 98 % Chair Marcos Work Phone: [facility] 04-30-2023 14:20-0400 Systolic blood pressure 147 mm[Hg] Chair [place] Work Phone: [facility] 04-29-2023 15:21-0400 Body height 162.6 cm Sandeep Lenz MD Work Phone: [facility] 04-29-2023 15:21-0400 Body temperature 97 [degF] Sandeep Lenz MD Work Phone: [facility] 04-29-2023 15:21-0400 Body weight 58.24 kg Sandeep Lenz MD Work Phone: [facility] 04-29-2023 15:21-0400 Diastolic blood pressure 66 mm[Hg] Sandeep Lenz MD Work Phone: [facility] 04-29-2023 15:21-0400 Heart rate 66 /min Sandeep Lenz MD Work Phone: [facility] 04-29-2023 15:21-0400 Respiratory rate 16 /min Sandeep Lenz MD Work Phone: [facility] 04-29-2023 15:21-0400 SaO2% (BldA) [Mass fraction] 96 % Sandeep Lenz MD Work Phone: [facility] 04-29-2023 15:21-0400 Systolic blood pressure 153 mm[Hg] Sandeep Lenz MD Work Phone: [facility] 05-19-2022 11:30-0400 Diastolic blood pressure 80 mm[Hg] [facility] 05-19-2022 11:30-0400 Heart rate 68 /min [facility] 05-19-2022 11:30-0400 Respiratory rate 16 /min [facility] 05-19-2022 11:30-0400 SaO2% (BldA) [Mass fraction] 98 % [facility] 05-19-2022 11:30-0400 Systolic blood pressure 175 mm[Hg] [facility] 01-08-2022 13:03-0400 Body height 162.6 cm Sandeep Lenz MD Work Phone: [facility] 01-08-2022 13:03-0400 Body temperature 97.39 [degF] Sandeep Lenz MD Work Phone: [facility] 01-08-2022 13:03-0400 Body weight 64.23 kg Sandeep Lenz MD Work Phone: [facility] 01-08-2022 13:03-0400 Diastolic blood pressure 69 mm[Hg] Sandeep Lenz MD Work Phone: [facility] 01-08-2022 13:03-0400 Heart rate 68 /min Sandeep Lenz MD Work Phone: [facility] 01-08-2022 13:03-0400 Respiratory rate 16 /min Sandeep Lenz MD Work Phone: [facility] 01-08-2022 13:03-0400 SaO2% (BldA) [Mass fraction] 97 % Sandeep Lenz MD Work Phone: [facility] 01-08-2022 13:03-0400 Systolic blood pressure 150 mm[Hg] Sandeep Lenz MD Work Phone: [facility] 11-11-2021 13:00-0500 Diastolic blood pressure 69 mm[Hg] MD Eduardo Sharpe Work Phone: [facility] 11-11-2021 13:00-0500 Heart rate 65 /min MD Eduardo Sharpe Work Phone: [facility] 11-11-2021 13:00-0500 Respiratory rate 16 /min MD Eduardo Sharpe Work Phone: [facility] 11-11-2021 13:00-0500 SaO2% (BldA) [Mass fraction] 96 % MD Eduardo Sharpe Work Phone: [facility] 11-11-2021 13:00-0500 Systolic blood pressure 129 mm[Hg] MD Eduardo Sharpe Work Phone: [facility] 11-11-2021 12:00-0500 Body temperature 98 [degF] MD Eduardo Sharpe Work Phone: [facility] 11-11-2021 06:00-0500 Body weight 63 kg MD Eduardo Sharpe Work Phone: [facility] 11-10-2021 12:59-0500 Body height 163.83 cm MD Eduardo Sharpe Work Phone: [facility] 11-09-2021 18:45-0500 Body mass index (BMI) [Ratio] 23.8 kg/m2 MD Eduardo Sharpe Work Phone: [facility] Encounters Encounter Date Encounter Type Care Provider Facility Start: 05-26-2024 Non-patient / Non-visit MD Carlos Sharpe Work Phone: [facility] Gastroenterology Work Phone: Start: 05-26-2024 End: 05-26-2024 Admission to same day surgery center MD Eduardo Sharpe Work Phone: [facility] Work Phone: Start: 05-26-2024 End: 05-26-2024 ambulatory MD Eduardo Sharpe Work Phone: [facility] Work Phone: Start: 05-05-2024 Telephone encounter Re kelly DO Work Phone: [facility] Comment on above: Schedule Surgery Start: 04-23-2024 End: 04-23-2024 ambulatory [facility] Facility:[facility] Start: 04-20-2024 Telephone encounter Clemente Hull Hematology/Oncology Comment on above: Results; repeat CBC for H/H Start: 04-20-2024 End: 04-20-2024 ambulatory [facility] Facility:[facility] Start: 04-17-2024 End: 04-17-2024 ambulatory [facility] Facility:[facility] Start: 04-16-2024 End: 04-17-2024 ambulatory [facility] Facility:[facility] Start: 04-14-2024 End: 04-14-2024 ambulatory [facility] Facility:[facility] Start: 04-03-2024 Telephone encounter Kevin ni RN Hematology/Oncology Start: 04-02-2024 Orders Only Barrera stoll MD Work Phone: Angio Comment on above: Abnormal kidney func tion (Primary Dx) Renal biopsy Start: 04-01-2024 Telephone encounter Sandeep [facility]azan MD [facility] Comment on above: Appointment Confirma tion Start: 03-27-2024 End: 06-10-2024 Telephone encounter Sandeep Lenz MD Work Phone: Cancer 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); Stage 3 chronic kidney disease, unspecified whether stage 3a or 3b CKD (HCC); Monoclonal gammopathy of renal significance (MGRS); Abnormal finding on GI tract imaging Start: 03-24-2024 End: 03-24-2024 Telemedicine consultation with patient Sandeep Lenz MD Work Phone: Hematology/Oncology Start: 03-20-2024 End: 03-20-2024 [facility] Facility:[facility] Start: 03-20-2024 End: 03-20-2024 Subsequent hospital visit by physician Arrival Time Radiology Work Phone: Radiology [facility] Comment on above: Multiple myeloma not having achieved remission (HCC) [C90.00] Start: 03-04-2024 Telephone encounter Sandeep bazan MD Work Phone: Cancer 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); Hypercalcemia; Stage 3 chronic kidney disease, unspecified whether stage 3a or 3b CKD (HCC); Malignant neoplasm of upper-outer quadrant of left breast in female, estrogen receptor positive (HCC) Start: 02-24-2024 End: 02-24-2024 ambulatory [facility] Facility:[facility] Start: 02-19-2024 End: 02-19-2024 ambulatory [facility] Start: 02-10-2024 Telephone encounter Clemente Hull Hematology/Oncology Comment on above: Patient Update; Appo intment Start: 02-10-2024 End: 02-10-2024 ambulatory [facility] Work Phone: Start: 02-10-2024 End: 02-10-2024 Patient encounter procedure [facility] Nephrology Work Phone: Start: 02-03-2024 Non-patient / Non-visit [facility] Work Phone: Start: 01-20-2024 End: 01-20-2024 ambulatory [facility] Work Phone: Start: 01-20-2024 End: 01-20-2024 Patient encounter procedure [facility] Nephrology Work Phone: Start: 11-25-2023 End: 11-25-2023 Office outpatient visit 25 minutes Sandeep Lenz MD Work Phone: Hematology/Oncology Comment on above: Malignant neoplasm o f upper-outer quadrant of left breast in female, estrogen receptor positive (HCC) (Primary Dx); Stage 3 chronic kidney disease, unspecified whether stage 3a or 3b CKD (HCC); Breast screening; Encounter for screening mammogram for malignant neoplasm of breast; Hypercalcemia Start: 11-25-2023 End: 11-25-2023 ambulatory SANDEEP YOANNA Facility:[facility] Start: 10-31-2023 [employer] Mark stout DO Work Phone: [facility] [employer] [facility] Start: 10-31-2023 [employer] Mark stout DO Work Phone: [facility] Start: 10-31-2023 End: 10-31-2023 ambulatory MARK ISABEL Not Available Start: 10-16-2023 End: 10-16-2023 ambulatory [facility] Start: 08-19-2023 Telephone encounter Clemente Hull Hematology/Oncology Comment on above: Results Start: 08-19-2023 End: 08-19-2023 ambulatory SANDEEP LENZ Facility:[facility] Start: 07-02-2023 End: 07-02-2023 ambulatory EDUARDO SHARPE Facility:[facility] Start: 06-05-2023 End: 06-05-2023 ambulatory Bala Hartman Other [employer] Other Start: 06-05-2023 Telephone encounter Bala Hartman [facility] Start: 05-21-2023 Telephone encounter Clemente Hull Hematology/Oncology Comment on above: Results Start: 05-20-2023 End: 05-20-2023 Office outpatient visit 25 minutes Sandeep Lenz MD Work Phone: Hematology/Oncology Comment on above: Hypercalcemia (Prima ry Dx); Malignant neoplasm of upper-outer quadrant of left breast in female, estrogen receptor positive (HCC); Stage 3 chronic kidney disease, unspecified whether stage 3a or 3b CKD (HCC) Start: 05-20-2023 Telephone encounter Sandeep bazan MD Work Phone: Cancer [facility] Comment on above: Referral Information (Nephrology) Start: 05-09-2023 Social Work Aleida Vargas SQL ENGINEER Hematolo gy/Oncology Start: 05-07-2023 Refill Sandeep aragon MD Work Phone: Hematology/Oncology Comment on above: Refill Request Start: 04-30-2023 End: 04-30-2023 Infusion Center Chair Nya Rodríguez Work Phone: Hematology/Oncology Comment on above: Hypercalcemia (Prima ry Dx); Other specified menopausal and perimenopausal disorders; Malignant neoplasm of upper-outer quadrant of left breast in female, estrogen receptor positive (HCC) Start: 04-29-2023 End: 04-29-2023 Office outpatient visit [...] CKD (HCC) Start: 04-01-2023 End: 04-01-2023 ambulatory [facility] Start: 08-23-2022 End: 09-23-2022 ambulatory SHAIKH [...] Start: 05-19-2022 End: 05-19-2022 ambulatory [facility] Start: 05-19-2022 End: 05-19-2022 Emergency department patient visit [facility] Triage, Treat and Transport Comment on above: Arrived Start: 05-09-2022 End: 05-10-2022 ambulatory EDUARDO SHARPE Facility:[facility] Start: 05-07-2022 End: 05-08-[address] [...] encounter procedure Sandeep Lenz MD Work Phone: [facility] Comment on above: Malignant neoplasm o f upper-outer quadrant of left breast in female, estrogen receptor positive (HCC) (Primary Dx) Start: 01-05-2022 End: 01-06-2022 ambulatory SANDEEP LENZ Facility:[facility] Start: 12-27-2021 End: 12-27-2021 Patient encounter procedure MD Eduardo Sharpe Work Phone: [facility] [place] Start: 12-22-2021 End: 01-19-[address] EDUARDO SHARPE Facility:[facility] Start: 11-30-2021 End: 11-30-2021 ambulatory Brayden Hernandez Other [facility] [employer] Other Start: 11-30-2021 Office outpatient vi sit 15 minutes Brayden Hernandez [facility] Start: 11-21-2021 End: 12-21-2021 ambulatory SHAIKH Barbraa AGUIAR Facility:[facility] Start: 11-17-2021 End: 11-17-2021 Patient encounter procedure MD Eduardo Sharpe Work Phone: [facility] [place] Start: 11-09-2021 End: 11-11-2021 Evaluation and management of inpatient MD Eduardo Sharpe Work Phone: [facility] Start: 11-09-2021 End: 11-09-2021 ambulatory MIKALA HIGGINS Facility:[facility] Start: 10-24-2021 End: 11-20-2021 ambulatory SHAIKH Barbara AGUIAR Facility:[facility] Start: 09-28-2021 End: 10-23-2021 ambulatory TIBURCIOLazara HENDERSON Facility:[facility] Procedures Date Procedure Procedure Detail Performing Clinician Start: 05-26-2024 Esophagogastroduodenoscopy MD Eduardo arias Work Phone: Start: 04-17-2024 H/O: surgery Status post biopsy of kidney Clemente Srivastava RN Start: 03-20-[address] attenuation whole body Sandeep Lenz MD Work Phone: Start: 03-20-2024 Gluc bld gluc mntr dev cleared fda spec home use [facility] Provider Start: 10-31-2023 End: 10-31-2023 Oph bmtry prtl coher intrfrmtry io lens pwr connie Mark Isabel DO Work Phone: Start: 10-31-2023 End: 10-31-2023 [facility] medical xm&eval compre new pt 1/> vst Age-related nuclear cataract of left eye Mark Isabel DO Work Phone: Comment on above: Age-related nuclear cataract of left eye (Primary Dx); Primary open angle glaucoma (POAG) of both eyes, mild stage (CMS/HCC) Start: 08-19-2022 Assistance with Respiratory Ventilation, 24-96 Consecutive Hours, Continuous Positive Airway Pressure MIKALA HIGGINS Start: 07-08-2022 Insertion of Infusion Device into Right Basilic Vein, Percutaneous Approach MIKALA HIGGINS Start: 12-27-2021 CT of head without contrast MD Eduardo armenta Work Phone: Start: 11-17-2021 CT of head without contrast MD Eduardo armenta Work Phone: Start: 11-10-2021 CT of head without contrast MD Eduardo armenta Work Phone: Start: 03-10-2020 Adult depression screening assessment Sandeep Lenz MD Work Phone: Plan of Treatment Date Care Activity Detail Author Start: 04-14-2027 Diabetes Screening Diabetes Screening [facility] Start: 02-23-2027 Diabetes Screening Diabetes Screening [facility] Start: 11-24-2026 Diabetes Screening Diabetes Screening [facility] Start: 08-19-2026 Diabetes Screening Diabetes Screening [facility] Start: 05-20-2026 DIABETES SCREEN DIABETES SCREEN [facility] Start: 05-20-2026 Diabetes Screening Diabetes Screening [facility] Start: 04-30-2026 DIABETES SCREEN DIABETES SCREEN [facility] Start: 04-29-2026 DIABETES SCREEN DIABETES SCREEN [facility] Start: 04-23-2025 Complete blood count Hemoglobin/Hematocrit [facility] Start: 04-20-2025 Complete blood count Hemoglobin/Hematocrit [facility] Start: 04-14-2025 Creatinine measurement Serum Creatinine [facility] Start: 02-23-2025 Complete blood count Hemoglobin/Hematocrit [facility] Start: 02-23-2025 Creatinine measurement Serum Creatinine [facility] Start: 01-08-2025 DIABETES SCREEN DIABETES SCREEN [facility] Start: 11-24-2024 End: 02-23-2025 Cancer Ag 15-3 [Units/volume] in Serum or Plasma CA 15-3 BLD Lab Routine Malignant neoplasm of upper-outer quadrant of left breast in female, estrogen receptor positive (HCC) Breast screening Expected: 11/24/2024 (Approximate), Expires: 02/23/[address] [facility] Work Phone: Comment on above: Expected: 11/24/2024 (Approximate), Expi res: 02/23/2025 Start: 11-24-2024 End: 02-23-2025 Cancer Ag 27-29 [Units/volume] in Serum or Plasma CA 27.29 BLOOD Lab Routine Malignant neoplasm of upper-outer quadrant of left breast in female, estrogen receptor positive (HCC) Breast screening Expected: 11/24/2024 (Approximate), Expires: 02/23/[address] [facility] Work Phone: Comment on above: Expected: 11/24/2024 (Approximate), Expi res: 02/23/2025 Start: 11-24-2024 End: 02-23-2025 CBC W Auto Differential panel - Blood CBC + DIFF Lab Routine Malignant neoplasm of upper-outer quadrant of left breast in female, estrogen receptor positive (HCC) Breast screening Expected: 11/24/2024 (Approximate), Expires: 02/23/[address] [facility] Work Phone: Comment on above: Expected: 11/24/2024 (Approximate), Expi res: 02/23/2025 Start: 11-24-2024 Complete blood count Hemoglobin/Hematocrit [facility] Start: 11-24-2024 End: 02-23-2025 Comprehensive metabolic 2000 panel - Serum or Plasma COMP METABOLIC PANEL Lab Routine Malignant neoplasm of upper-outer quadrant of left breast in female, estrogen receptor positive (HCC) Breast screening Expected: 11/24/2024 (Approximate), Expires: 02/23/[address] [facility] Work Phone: Comment on above: Expected: 11/24/2024 (Approximate), Expi res: 02/23/2025 Start: 11-24-2024 Creatinine measurement Serum Creatinine [facility] Start: 11-23-2024 End: 11-23-2024 Follow-up encounter 11/23/2024 11:00 AM EST Visit (SP) Office Hematology/Oncology [address] [place] [address] Sandeep Lenz MD [address] [place], [place] [address] 1 year follow up with lab Hematology/Oncology Comment on above: 1 year follow up with lab Start: 11-23-2024 End: 11-23-2024 Patient encounter procedure 11/23/2024 10:45 AM EST Office Visit [facility] [address] [place] [address] 1 year follow up with lab [facility] Comment on above: 1 year follow up with lab Start: 10-27-2024 End: 12-24-2024 MG Breast Screening SHANNEN SCREENING Radiology Routine Malignant neoplasm of upper-outer quadrant of left breast in female, estrogen receptor positive (HCC) Breast screening Encounter for screening mammogram for malignant neoplasm of breast Expected: 10/27/2024 (Approximate), Expires: 12/24/[address] [facility] Work Phone: Comment on above: Expected: 10/27/2024 (Approximate), Expi res: 12/24/2024 Start: 08-19-2024 Hemoglobin/Hematocrit Hemoglobin/Hematocrit [facility] Start: 08-19-2024 Serum Creatinine Serum Creatinine [facility] Start: 05-26-2024 [facility] Start: 05-24-2024 Covid-19 Vaccine ( season) Covid-19 Vaccine () [facility] Start: 05-24-2024 Influenza vaccination [facility] Start: 05-20-2024 HEMOGLOBIN/HEMATOCRIT HEMOGLOBIN/HEMATOCRIT [facility] Start: 05-20-2024 SERUM CREATININE SERUM CREATININE [facility] Start: 04-30-2024 HEMOGLOBIN/HEMATOCRIT HEMOGLOBIN/HEMATOCRIT [facility] Start: 04-30-2024 SERUM CREATININE SERUM CREATININE [facility] Start: 04-16-2024 End: 04-16-2024 Admission to same day surgery center 04/16/2024 11:00 AM EDT - 04/16/2024 12:06 PM EDT Surgery Angio [address] [place] [address] Primitivo Andrade MD [address] [place], [place] [id number] BIOPSY KIDNEY PERCUTANEOUS Angio Comment on above: BIOPSY KIDNEY PERCUTANEOUS Start: 04-16-2024 End: 04-16-2024 Renal biopsy prq trocar/needle BIOPSY KIDNEY PERCUTANEOUS Elevated LFTs 04/16/2024 11:00 AM EDT [facility] ANGIO HB6 Start: 04-16-2024 Subsequent hospital visit by physician 04/16/2024 11:00 AM EDT Hospital Encounter [facility] [address] [facility] [address] [address] Primitivo Andrade MD [address] [place], [place] [id number] Elevated LFTs [R79.89] Angio Comment on above: Elevated LFTs [R79.89] Start: 04-02-2024 End: 07-02-2024 CBC panel - Blood by Automated count COMPLETE BLOOD COUNT Lab Routine Abnormal kidney function Expected: 04/02/2024, Expires: 07/02/[address] [facility] Work Phone: Comment on above: Expected: 04/02/2024, Expires: Start: 04-02-2024 End: 07-02-2024 PT panel - Platelet poor plasma by Coagulation assay PROTHROMBIN TIME Lab Routine Abnormal kidney function Expected: 04/02/2024, Expires: 07/02/2024 [facility] Comment on above: Expected: 04/02/2024, Expires: Start: 03-24-2024 End: 03-24-2024 ambulatory 03/24/2024 1:15 PM EDT [facility] Hematology/Oncology [address] [place] [address] [address] [place] [address] Sandeep Lenz MD [address] [place] [address] [address] [place] [address] Rosenda called back and ok'd date and time change for this appt Hematology/Oncology Comment on above: Rosenda called back and ok'd date and ti me change for this appt Start: 03-17-2024 End: 03-17-2024 ambulatory 03/17/2024 2:45 PM EDT [facility] Hematology/Oncology [address] [place] [address] [address] [place] [address] Sandeep Lenz MD [address] [place] [address] [address] [place] [address] 15 day virtual visit for lab results Hematology/Oncology Comment on above: 15 day virtual visit for lab results Start: 02-24-2024 End: 02-23-2025 [id number] [Mass/volume] in Serum or Plasma [facility] Work Phone: Comment on above: Expected: 02/24/2024, Expires: Start: 02-24-2024 End: 02-23-2025 MONOCLONAL PROT 24 UR W/INTERP MONOCLONAL PROT 24 UR W/INTERP Lab Routine MGUS (monoclonal gammopathy of unknown significance) Expected: 02/24/2024, Expires: 02/23/2025 [facility] Comment on above: Expected: 02/24/2024, Expires: Start: 02-24-2024 End: 02-23-2025 MONOCLONAL PROTEIN, SERUM (BLOOD) [facility] Comment on above: Expected: 02/24/2024, Expires: Start: 02-24-2024 End: 02-23-2025 PROT ELEC UR 24HR W/M SPIKE AND INTERP PROT ELEC UR 24HR W/M SPIKE AND INTERP Lab Routine MGUS (monoclonal gammopathy of unknown significance) Expected: 02/24/2024, Expires: 02/23/2025 [facility] Comment on above: Expected: 02/24/2024, Expires: Start: 02-24-2024 End: 02-23-2025 PROTEIN ELECTROPHORESIS SERUM W/INTERP [facility] Comment on above: Expected: 02/24/2024, Expires: Start: 02-24-2024 End: 02-24-2024 Follow-up encounter 02/24/2024 11:30 AM EDT Visit (SP) Office Hematology/Oncology [address] [place] [address] [address] [place], [place] [address] Sandeep Lenz MD [address] [facility] [address] [place] [address] follow up with lab Hematology/Oncology Comment on above: follow up with lab Start: 02-24-2024 End: 02-24-2024 Patient encounter procedure 02/24/2024 11:15 AM EDT Office Visit [facility] [address] [place] [address] [address], [place] [address] lab [facility] Comment on above: lab Start: 11-28-2023 End: 11-28-2023 Patient encounter procedure 11/28/2023 8:10 AM EST Procedure Visit [facility] Mark Isabel, DO [address] [place] [address] [facility] Start: 11-25-2023 End: 02-24-2024 Cancer Ag 27-29 [Units/volume] in Serum or Plasma CA 27.29 BLOOD Lab Routine Stage 3 chronic kidney disease, unspecified whether stage 3a or 3b CKD (HCC) Malignant neoplasm of upper-outer quadrant of left breast in female, estrogen receptor positive (HCC) Breast screening Encounter for screening mammogram for malignant neoplasm of breast Hypercalcemia Expected: 11/25/2023, Expires: 02/24/[address] [facility] Work Phone: Comment on above: Expected: 11/25/2023, Expires: Start: 11-25-2023 End: 02-24-2024 CBC W Auto Differential panel - Blood CBC + DIFF Lab Routine Stage 3 chronic kidney disease, unspecified whether stage 3a or 3b CKD (HCC) Malignant neoplasm of upper-outer quadrant of left breast in female, estrogen receptor positive (HCC) Breast screening Encounter for screening mammogram for malignant neoplasm of breast Hypercalcemia Expected: 11/25/2023, Expires: 02/24/[address] [facility] Work Phone: Comment on above: Expected: 11/25/2023, Expires: Start: 11-25-2023 End: 02-24-2024 Comprehensive metabolic 2000 panel - Serum or Plasma COMP METABOLIC PANEL Lab Routine Stage 3 chronic kidney disease, unspecified whether stage 3a or 3b CKD (HCC) Malignant neoplasm of upper-outer quadrant of left breast in female, estrogen receptor positive (HCC) Breast screening Encounter for screening mammogram for malignant neoplasm of breast Hypercalcemia Expected: 11/25/2023, Expires: 02/24/[address] [facility] Work Phone: Comment on above: Expected: 11/25/2023, Expires: 4 Start: 09-23-2023 Advance Directive Discussion Advance Directive Discussion [facility] Start: 09-23-2023 Behavioral Health Screening Behavioral Health Screening [facility] Start: 09-23-2023 Depression Assessment Depression Assessment [facility] Start: 05-24-2023 Covid-19 Vaccine () Covid-19 Vaccine () [facility] Start: 05-24-2023 Influenza vaccination [facility] Start: 04-29-2023 End: 06-29-2023 Parathyrin related protein [Moles/volume] in Serum or Plasma PTH RELATED PEPTIDE Lab Routine Malignant neoplasm of upper-outer quadrant of left breast in female, estrogen receptor positive (HCC) Hypercalcemia Expected: 04/29/2023, Expires: 06/29/[address] [facility] Work Phone: Comment on above: Expected: 04/29/2023, Expires: 3 Start: 04-29-2023 End: 06-29-2023 PTH, INTACT (WITHOUT CALCIUM) PTH, INTACT (WITHOUT CALCIUM) Lab Routine Malignant neoplasm of upper-outer quadrant of left breast in female, estrogen receptor positive (HCC) Hypercalcemia Expected: 04/29/2023, Expires: 06/29/[address] [facility] Work Phone: Comment on above: Expected: 04/29/2023, Expires: 3 Start: 09-23-2022 ADVANCE DIRECTIVE DISCUSSION ADVANCE DIRECTIVE DISCUSSION [facility] Start: 09-23-2022 DEPRESSION ASSESSMENT DEPRESSION ASSESSMENT [facility] Start: 07-09-2022 End: 09-08-2022 25-hydroxyvitamin D3 [Mass/volume] in Serum or Plasma VITAMIN D 25 HYDROXY Lab Routine Malignant neoplasm of upper-outer quadrant of left breast in female, estrogen receptor positive (HCC) Encounter for screening for osteoporosis Hypercalcemia Expected: 07/09/2022 (Approximate), Expires: 09/08/[address] [facility] Work Phone: Comment on above: Expected: 07/09/2022 (Approximate), Expi res: 09/08/2022 Start: 07-09-2022 End: 09-08-2022 Calcitriol [Mass/volume] in Serum or Plasma VITAMIN D1 25-DIHYDR Lab Routine Malignant neoplasm of upper-outer quadrant of left breast in female, estrogen receptor positive (HCC) Encounter for screening for osteoporosis Expected: 07/09/2022 (Approximate), Expires: 09/08/[address] [facility] Work Phone: Comment on above: Expected: 07/09/2022 (Approximate), Expi res: 09/08/2022 Start: 07-09-2022 End: 06-30-2023 CBC W Auto Differential panel - Blood CBC + DIFF Lab Routine Malignant neoplasm of upper-outer quadrant of left breast in female, estrogen receptor positive (HCC) Encounter for screening for osteoporosis Expected: 07/09/2022 (Approximate), Expires: 06/30/[address] [facility] Work Phone: Comment on above: Expected: 07/09/2022 (Approximate), Expi res: 06/30/2023 Start: 07-09-2022 End: 06-30-2023 Comprehensive metabolic 2000 panel - Serum or Plasma COMP METABOLIC PANEL Lab Routine Malignant neoplasm of upper-outer quadrant of left breast in female, estrogen receptor positive (HCC) Encounter for screening for osteoporosis Expected: 07/09/2022 (Approximate), Expires: 06/30/[address] [facility] Work Phone: Comment on above: Expected: 07/09/2022 (Approximate), Expi res: 06/30/2023 Start: 06-23-2022 Influenza vaccination Influenza Vaccine (#1) [facility] Start: 05-24-2022 Influenza vaccination INFLUENZA (#1) [facility] Start: 09-23-2021 ADVANCE DIRECTIVE DISCUSSION ADVANCE DIRECTIVE DISCUSSION [facility] Start: 09-23-2021 DEPRESSION ASSESSMENT DEPRESSION ASSESSMENT [facility] Start: 03-10-2021 Adult depression screening assessment DEPRESSION SCREENING [facility] Start: 06-17-2019 Pneumococcal Vaccine: 65+ (2 - PPSV23 or PCV20) Pneumococcal Vaccine: 65+ (2 - PPSV23 or PCV20) [facility] Start: 06-17-2019 PNEUMOCOCCAL: 65+ (2 - PPSV23 if available, else PCV20) PNEUMOCOCCAL: 65+ (2 - PPSV23 if available, else PCV20) [facility] Start: 06-17-2019 PNEUMOCOCCAL: 65+ (2 - PPSV23 or PCV20) PNEUMOCOCCAL: 65+ (2 - PPSV23 or PCV20) [facility] Start: 2009 BONE DENSITY BONE DENSITY [facility] Start: 2009 Bone Density Screening Bone Density Screening [facility] Start: 2009 Pneumococcal vaccination Pneumococcal Vaccine(s) (65+ yrs) (1 - PCV) [facility] Start: 2009 PNEUMOVAX AGE 65 AND OVER WITH 5YR LOOKBACK (#1) PNEUMOVAX AGE 65 AND OVER WITH 5YR LOOKBACK (#1) [facility] Start: 2009 Screening for osteoporosis [facility] Start: 2004 RSV Vaccine (1 - 1-dose 60+ series) RSV Vaccine (1 - 1-dose 60+ series) [facility] Start: 1994 Shingles (RZV) Vaccine (1 of 2) Shingles (RZV) Vaccine (1 of 2) [facility] Start: 1994 SHINGRIX VACCINE (1 of 2) SHINGRIX VACCINE (1 of 2) [facility] Start: 1963 Urine microalbumin profile [facility] Start: 1962 ANNUAL PCP TEAM CHRONIC DISEASE VISIT ANNUAL PCP TEAM CHRONIC DISEASE VISIT [facility] Start: 1962 Anxiety Screening Anxiety Screening [facility] Start: 1962 Depression Screening Depression Screening [facility] Start: 1962 HEPATITIS C SCREENING HEPATITIS C SCREENING [facility] Start: 1962 Hepatitis C screening Hepatitis C Antibody [facility] Start: 1962 Tetanus + diphtheria + acellular pertussis vaccine (product) Tdap Booster [facility] Start: 1956 COVID-19 VACCINE (1) COVID-19 VACCINE (1) [facility] Start: 04-09-1945 COVID-19 Vaccine (#1) COVID-19 Vaccine (#1) [facility] End: 05-28-2024 Bone &/joint imaging whole body NM BONE WHOLE BODY Radiology Routine Malignant neoplasm of breast in female, estrogen receptor positive, unspecified laterality, unspecified site of breast (HCC) 1 Occurrences starting 04/29/2023 until 05/28/[address] [facility] Work Phone: Comment on above: 1 Occurrences starting 04/29/2023 until 05/28/2024 End: 05-19-2024 Calcium [Mass/volume] in Serum or Plasma CALCIUM TOTAL BLD Lab Routine Hypercalcemia Malignant neoplasm of upper-outer quadrant of left breast in female, estrogen receptor positive (HCC) Stage 3 chronic kidney disease, unspecified whether stage 3a or 3b CKD (HCC) Every 6 weeks for 9 Occurrences starting 05/20/2023 until 05/19/[address] [facility] Work Phone: Comment on above: Every [...] Occurrences starting 05/20/2023 until 05/19/2024, [address] [facility] Work Phone: Comment on above: Every [...] Occurrences starting 05/20/2023 until 05/19/2024, [address] [facility] Work Phone: Comment on above: Every [...] Occurrences starting 05/20/2023 until 05/19/2024, [address] [facility] Work Phone: Comment on above: Every 6 weeks for 9 Occurrences starting 05/20/2023 until 05/19/2024, 1 completed End: 04-03-2025 EGD DIAGNOSTIC EGD DIAGNOSTIC Endoscopy Routine Abnormal gastrointestinal PET scan Gastritis, presence of bleeding unspecified, unspecified chronicity, unspecified gastritis type 1 Occurrences starting 04/03/2024 until 04/03/[address] 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 Work Phone: Comment on above: Ordered: 03/26/2024 Immunofixation for Urine [facility] Parathyrin related protein [Moles/volume] in Serum or Plasma PTH RELATED PEPTIDE Lab Routine Malignant neoplasm of upper-outer quadrant of left breast in female, estrogen receptor positive (HCC) Hypercalcemia 04/30/2023 3:[address] [facility] Work Phone: Patient Education [facility] Work Phone: Patient referral [facility] Work Phone: Renal function 2000 panel - Serum or Plasma [facility] Immunizations Immunization Date Immunization Notes Care Provider [facility] 07-11-2022 influenza, high dose seasonal, preservative-free Clemente Srivastava RN [facility] 07-11-2022 pneumococcal polysaccharide vaccine, 23 valent Clemente Srivastava RN [facility] 07-11-2022 influenza virus vacc ine, unspecified formulation Sandeep Lenz MD Work Phone: [facility] 07-07-2021 influenza, high-dose , quadrivalent vaccine (FLUZONE HIGH DOSE QUADRIVALENT) Sandeep Lenz MD Work Phone: [facility] 07-07-2021 unknown vaccine or i mmune globulin Clemente Srivastava RN [facility] 06-12-2021 influenza, high dose seasonal, preservative-free Clemente Srivastava RN [facility] 06-22-2020 influenza, high dose seasonal, preservative-free Sandeep Lenz MD Work Phone: [facility] 06-15-2020 Seasonal trivalent influenza vaccine, adjuvanted, preservative free Sandeep Lenz MD Work Phone: [facility] 06-17-2018 influenza, high dose seasonal, preservative-free Sandeep Lenz MD Work Phone: [facility] 06-17-2018 pneumococcal conjuga te vaccine, 13 valent Sandeep Lenz MD Work Phone: [facility] 07-09-2017 influenza, high dose seasonal, preservative-free Sandeep Lenz MD Work Phone: [facility] 07-09-2017 pneumococcal conjuga te vaccine, 13 valent Sandeep Lenz MD Work Phone: [facility] Payers Date Payer Category Payer Self-pay [id number] 2024 Unknown [id number] 2014 Unknown MEDICA RE SUPPLEMENT [id number] 2014-Present [phone] [address] [address] [place] [address] Indemnity [id number] 2014 Unknown [id number] [id number] 2009 Medicare MEDICARE MEDICAR E A AND B [id number] 2009-Present [phone] [address] [address] [place] [address] Medicare [id number] 2009 Medicare [id number] .[id number] 1959 Medicare [id number] 1959 Unknown [id number] 1959 Unknown [id number] 1944 Unknown [id number] 2.16.840.1.343832.3.579.2.647 1944 Unknown [id number] 2.16.840.1.739237.3.579.2.732 1944 Unknown [id number] 2.16.840.1.521667.3.579.2.593 1944 Unknown [id number] 2.16.840.1.081124.3.579.2.593 1944 Unknown [id number] 2.16.840.1.400800.3.579.2.593 1944 Unknown [id number] 2.16.840.1.805248.3.579.2.593 1944 Unknown [id number] 2.16.840.1.267347.3.579.2.593 1944 Unknown [id number] 2.16.840.1.231099.3.579.2.593 1944 Unknown [id number] 2.16.840.1.427961.3.579.2.593 1944 Unknown [id number] 2.16.840.1.048129.3.579.2.593 1944 Unknown [id number] 2.16.840.1.597889.3.579.2.593 1944 Unknown [id number] 2.16.840.1.342739.3.579.2.593 1944 Unknown [id number] 2.16.840.1.112611.3.579.2.593 1944 Unknown [id number] 2.16.840.1.440360.3.579.2.593 1944 Unknown [id number] 2.16.840.1.460185.3.579.2.593 1944 Unknown [id number] 2.16.840.1.928074.3.579.2.593 1944 Unknown [id number] 2.16.840.1.847452.3.579.2.593 1944 Unknown [id number] 2.16.840.1.385801.3.579.2.593 1944 Unknown [id number] 2.16.840.1.223194.3.579.2.593 1944 Unknown [id number] 2.16.840.1.818974.3.579.2.593 1944 Unknown [id number] 2.16.840.1.247127.3.579.2.593 1944 Unknown [id number] 2.16.840.1.896137.3.579.2.593 1944 Unknown [id number] 2.16.840.1.890329.3.579.2.593 1944 Unknown [id number] 2.16.840.1.224639.3.579.2.593 1944 Unknown [id number] 2.16.840.1.214978.3.579.2.593 1944 Unknown [id number] 2.16.840.1.893937.3.579.2.125 9 Medicare [id number] Unknown [id number] 2.16.840.1.847524.3.579.2.531 Social History Date Type Detail Facility Start: 11-10-2021 End: 04-29-2023 Tobacco smoking status NHIS Never smoked tobacco (finding) [facility] Start: 1945 Sex Assigned At Female F [facility] Start: 06-12-2018 End: 04-29-2023 Tobacco use and exposure Smokeless tobacco non-user [facility] Start: 01-08-2022 End: 11-25-2023 Alcohol intake Current drinker of alcohol (finding) [facility] Start: 06-12-2018 History SDOH Alcohol Comment very rare [facility] Start: 1945 Sex Assigned At Not on file [facility] Start: 12-29-2021 End: 01-08-2022 Exposure to SARS-CoV-2 (event) Not sure [facility] Start: 04-29-2023 End: 03-24-2024 Sex Assigned At [facility] Tobacco smoking status OKIS Tobacco smoking consumption unknown [facility] Start: 04-29-2023 End: 03-24-2024 History of Social function [facility] Adult Depression Screening Assessment 0 [facility] NEGATED: Highlighted rowStart: NINF History of tobacco use Passive smoker [facility] Goals Date Patient Goal Desired Activity /State Functional Status Date Assessment Result Facility 11-09-2021 Functional status Patient at Baseline [facility] Work Phone: Mental Status Date Assessment Result Facility 11-09-2021 Cognitive function Cognitive Sta tus Patient at Baseline [facility] Work Phone: Clinical Notes 09-16-2020 to 05-26-2024 Telephone Encounter - Sachin Marsh - 05/08/2024 2:23 PM EDTTelephone Encounter - Sachin Marsh - 05/08/2024 2:23 PM EDTTelephone Encounter - Sachin Marsh - 05/07/2024 1:29 PM EDT Note Date & Type Note Facility 05-26-2024 Procedure note [facility] 05-08-2024 Telephone encounter Note Final attempt left message on voicemail for daughter to call and schedule [facility] 05-08-2024 Miscellaneous Notes Final attempt left message on voicemail for daughter to call and schedule Left message on voicemail for patients daughter to call and schedule Call center calling for assistance with scheduling this patient. Called and LMOM for patient's daughter Janki Dobbs [phone] - patient needs to be scheduled with [facility]. documented in this encounter [facility] 05-07-2024 Telephone encounter Note Left message on voicemail for patients daughter to call and schedule [facility] 05-05-2024 Telephone encounter Note Call center calling for assistance with scheduling this patient. Called and LMOM for patient's daughter Janki Dobbs [phone] - patient needs to be scheduled with [facility]. [facility] 04-21-2024 Telephone encounter Note Rosenda Prado updated and agrees to bring in Saturday or for recheck. Prefers to walk in with their schedules. Clemente Srivastava RN [facility] 04-21-2024 Miscellaneous Notes DaughterRosenda updated and agrees to bring in Saturday or for recheck. Prefers to walk in with their schedules. Clemente Srivastava RN CBC stable, let's recheck on Saturday or , Please. [place]: please review today's lab and advise Clemente Srivastava RN Pt daughter aware and reports pt had been previously scheduled for lab recheck today at 115 at our facility. Ordered by Primitivo Andrade MD. She is aware of additional standing orders placed by Dr Perry, and that he will check today's results, and provide plan of care. Will watch for results and have [place] review and update plan Clemente Srivastava RN ----- Message from Sandeep Lenz MD sent at 04/19/2024 7:16 PM EDT ----- I think she had some post-op complications (post biopsy) - path is still pending. We should get a h/h this week - maybe a couple of times please. Orders placed. Nephrology Plan of Care Known bleeding post biopsy and significant drop in hemoglobin. BP is stable around 120/60 now but was 180/70 on presentation. Concern would be for expansion of perinephric hematoma and if not actively bleeding would like to characterize baseline in case anemia worsens. Will add another hemoglobin check this morning to establish stability. documented in this encounter [facility] 04-20-2024 Telephone encounter Note CBC stable, let's recheck on Saturday or , Please. [facility] 04-20-2024 Telephone encounter Note [place]: please review today's lab and advise Clemente Srivastava RN [facility] 04-20-2024 Telephone encounter Note Pt daughter aware and reports pt had been previously scheduled for lab recheck today at 115 at our facility. Ordered by Primitivo Andrade MD. She is aware of additional standing orders placed by Dr Perry, and that he will check today's results, and provide plan of care. Will watch for results and have [place] review and update plan Clemente Srivastava RN [facility] 04-20-2024 Telephone encounter Note ----- Message from Sandeep Lenz MD sent at 04/19/2024 7:16 PM EDT ----- I think she had some post-op complications (post biopsy) - path is still pending. We should get a h/h this week - maybe a couple of times please. Orders placed. Nephrology Plan of Care Known bleeding post biopsy and significant drop in hemoglobin. BP is stable around 120/60 now but was 180/70 on presentation. Concern would be for expansion of perinephric hematoma and if not actively bleeding would like to characterize baseline in case anemia worsens. Will add another hemoglobin check this morning to establish stability. [facility] 04-17-2024 Note HNO ID: [id number] Author: RE WOLF RT(R) Service: ? Author Type: [employer] Supervisor Type: Progress Notes Filed: 04/17/2024 10:08 Note Text: Radiology Service Progress Note PATIENT NAME: Andrew Barros DATE OF SERVICE: April 17, 2024 TIME: 10:08 AM PATIENT IDENTITY VERIFICATION COMPLETED USING TWO (2) IDENTIFIERS: Name and Date of confirmed by patient verbally and Name and Date of confirmed by identification band. FALL SCREENING: Has the patient had 2 falls in the last year or 1 fall with injury or currently using an Ambulatory Assistive Device (Walker, Cane, Wheelchair, Crutches, etc.)? Inpatient: Screened on floor PATIENT GENDER DATA: Female. status: : No status: NO. PATIENT RELEVANT IMPLANT DATA REVIEWED: Yes PATIENT PRESENTS WITH AN IMPLANTABLE OR ATTACHED ACID DUMPER: No RADIOLOGY DEPARTMENT: CT; Exam(s) Completed: Abdomen/Pelvis PERIPHERAL IV DATA: Not applicable SIGNED BY: RT Nneka(R) April 17, 2024 10:08 AM [facility] 04-17-2024 Note HNO ID: [id number] Author: SAGAR LINO DO Service: Nephrology Author Type: Fellow Type: Plan of Care Filed: 04/17/2024 08:19 Note Text: Nephrology Plan of Care Known bleeding post biopsy and significant drop in hemoglobin. BP is stable around 120/60 now but was 180/70 on presentation. Concern would be for expansion of perinephric hematoma and if not actively bleeding would like to characterize baseline in case anemia worsens. Will add another hemoglobin check this morning to establish stability. Sagar Lino DO, [facility] Kidney Medicine PGY V 04/17/2024 6:40 AM [facility] 04-16-2024 Note HNO ID: [id number] Author: FAN TAYLOR MD Service: Nephrology Author Type: Fellow Type: Plan of Care Filed: 04/16/2024 22:44 Note Text: Significant hemoglobin drop (from 12.3 initial to 10.4 now). Low threshold for imaging so CT abd AND pelvis WO contrast ordered. Will follow-up on results. Fan Chambers MD Nephrology Fellow PGY-IV [facility] 04-08-2024 Telephone encounter Note Patient and family have been called X 3 for scheduling EGD... just I [facility] 04-08-2024 Miscellaneous Notes Patient and family have been called X 3 for scheduling EGD... just FYI I did call the daughter Rosenda Hi sachin can you please call Dtr to see if she will be able to schedule appt Left message on voicemail for patient to call and schedule Left message on voicemail for patient to call and schedule Images from the original note were not included. Schedulers please see attached feed to schedule EGD as able. I'm not sure if this is supposed to come to you ladies or elsewhere. Thank you Aileen Burleson RN Please assist with scheduling EGD with first available provider. Re Ballesteros Jr., Ashlie Lugo Tiffany23 hours ago (10:51 AM) JK Just sent the triage to main also [facility] Main id say ;) thank you. Images from the original note were not included. 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 Also may need to see a heart nurse to consider a EGD for the PET results showing distal gastric uptake. Referral for this placed also. documented in this encounter [facility] 04-08-2024 Telephone encounter Note I did call the daughter Rosenda [facility] 04-08-2024 Telephone encounter Note Hi sachin can you please call Dtr to see if she will be able to schedule appt [facility] 04-08-2024 Telephone encounter Note Left message on voicemail for Rosenda to call and schedule [facility] 04-08-2024 Miscellaneous Notes Left message on voicemail for Rosenda to call and schedule Left message on voicemail for Rosenda to call and schedule Call received from Agata Irizarry (Rosenda), patients daughter, with multiple questions regarding pending renal bx and EGD. Per prior phone enc the granddaughter was contacted as Rosenda was out of town but Rosenda is the primary caregiver/contact for the patient, who was also on the phone. I updated Rosenda regarding pending procedures and reasoning. I also have made her aware that scheduling had attempted to contact the patient earlier in the day. Please contact Rosenda in regards to scheduling, education, and informing about the plan. Her information was confirmed correct in the demographics tab Kevin Brandon, RN documented in this encounter [facility] 04-06-2024 Telephone encounter Note Left message on voicemail for Rosenda to call and schedule [facility] 04-03-2024 Telephone encounter Note Call received from Agata Irizarry (Rosenda), patients daughter, with multiple questions regarding pending renal bx and EGD. Per prior phone enc the granddaughter was contacted as Rosenda was out of town but Rosenda is the primary caregiver/contact for the patient, who was also on the phone. I updated Rosenda regarding pending procedures and reasoning. I also have made her aware that scheduling had attempted to contact the patient earlier in the day. Please contact Rosenda in regards to scheduling, education, and informing about the plan. Her information was confirmed correct in the demographics tab Kevin Brandon RN [facility] 04-03-2024 Telephone encounter Note Left message on voicemail for patient to call and schedule [facility] 04-03-2024 Telephone encounter Note Left message on voicemail for patient to call and schedule [facility] 04-03-2024 Telephone encounter Note Images from the original note were not included. Schedulers please see attached feed to schedule EGD as able. I'm not sure if this is supposed to come to you ladies or elsewhere. Thank you Aileen Burleson RN Please assist with scheduling EGD with first available provider. Re Ballesteros Jr., Ashlie Lugo Sec, [id number] hours ago (10:51 AM) JIL Just sent the triage to main also [facility] 04-02-2024 Telephone encounter Note [facility] [place] [facility] Biopsy is Approved to be Done in Ultrasound. Patient will stay overnight in 23-hr Observation bed (Platelets & INR - ordered) BX. COORDINATOR INFORMATION LAB RESULTS: No results found for: INR No results found for: APTT Platelet Count (k/uL) Date Value 02/24/2024 285 07/21/2021 254 Current Outpatient Medications Medication Sig anastrozole (ARIMIDEX) 1 mg tablet TAKE 1 TABLET BY MOUTH EVERY DAY (Patient not taking: Reported on 02/24/2024) doxazosin (CARDURA) 4 mg tablet Take 4 mg by mouth daily at bedtime. Takes 2mg in morning then 4mg at night aspirin (ASPIR-81 ORAL) Take 81 mg by [...] Take 1 tablet by mouth twice daily. rivaroxaban (XARELTO) 20 mg tablet Take 20 mg by mouth daily with dinner. (Patient not taking: Reported on 11/25/2023) ezetimibe (ZETIA) 10 mg tablet Take 10 mg by mouth once daily. carvedilol (COREG) 25 mg tablet Take 25 mg by mouth as directed. Takes 1 1/2 tablet 2x a day Multivitamin capsule Take 1 capsule by mouth once daily. (Patient not taking: Reported on 11/25/2023) furosemide (LASIX) 40 mg tablet Take 40 mg by mouth once daily. Alternates with 20mg No current facility-administered medications for this visit. ALLERGIES Allergen Reactions Oloyqwq-Twu-Jzm Red* Unknown Other reaction(s): AOF FILMS SENT TO WORKSTATION: GUIDELINES FOR HOLDING ANTI-PLATELET AND ANTI- COAGULATION THERAPY: Xarelto. This should be held 2 Doses prior to biopsy. NURSE SIGNATURE: Karla Alston RN DATE: April 02, 2024 TIME: 11:35 AM [facility] 04-02-2024 Miscellaneous Notes [facility] [place] [facility] Biopsy is Approved to be Done in Ultrasound. Patient will stay overnight in 23-hr Observation bed (Platelets & INR - ordered) BX. COORDINATOR INFORMATION LAB RESULTS: No results found for: INR No results found for: APTT Platelet Count (k/uL) Date Value 02/24/2024 285 07/21/2021 254 Current Outpatient Medications Medication Sig anastrozole (ARIMIDEX) 1 mg tablet TAKE 1 TABLET BY MOUTH EVERY DAY (Patient not taking: Reported on 02/24/2024) doxazosin (CARDURA) 4 mg tablet Take 4 mg by mouth daily at bedtime. Takes 2mg in morning then 4mg at night aspirin (ASPIR-81 ORAL) Take 81 mg by [...] Take 1 tablet by mouth twice daily. rivaroxaban (XARELTO) 20 mg tablet Take 20 mg by mouth daily with dinner. (Patient not taking: Reported on 11/25/2023) ezetimibe (ZETIA) 10 mg tablet Take 10 mg by mouth once daily. carvedilol (COREG) 25 mg tablet Take 25 mg by mouth as directed. Takes 1 1/2 tablet 2x a day Multivitamin capsule Take 1 capsule by mouth once daily. (Patient not taking: Reported on 11/25/2023) furosemide (LASIX) 40 mg tablet Take 40 mg by mouth once daily. Alternates with 20mg No current facility-administered medications for this visit. ALLERGIES Allergen Reactions Ccutsdx-Mxu-Ros Red* Unknown Other reaction(s): AOF FILMS SENT TO WORKSTATION: GUIDELINES FOR HOLDING ANTI-PLATELET AND ANTI- COAGULATION THERAPY: Xarelto. This should be held 2 Doses prior to biopsy. NURSE SIGNATURE: Karla Alston RN DATE: April 02, 2024 TIME: 11:35 AM Summary: Renal biopsy RADIOLOGY CALL CENTER INTAKE DATE: 04/02/2024 TIME: 10:49am REQUESTING STAFF: Sandeep Lenz MD PHONE/PAGER: [phone] SPECIFICS OF THE REQUEST: Renal Biopsy SPECIAL REQUESTS: TISSUE SAMPLE, LABWORK: N/A IS THIS REQUEST PART OF A RESEARCH PROTOCOL: No MEDICAL DIAGNOSIS: MGUS (monoclonal gammopathy of unknown significance) TYPE AND DATE OF THE EXAM THAT IS THE BASIS OF THE REQUEST: PET 03/20/2024 IMAGING: [facility] Note to all persons requesting biopsies: All biopsy requests will be scheduled as quickly as possible, based on the clinical urgency, availability of appointment times, the need to hold anti-thrombolytic therapy (aspirin, blood thinners) and the patient s schedule, including the need for an available concrete truck driver. If a percutaneous biopsy or drainage is not felt to be safe or an alternative method for establishing a diagnosis is possible, this will be discussed directly with the requesting physician. documented in this encounter [facility] 04-02-2024 Telephone encounter Note Summary: Renal biopsy RADIOLOGY CALL CENTER INTAKE DATE: 04/02/2024 TIME: 10:49am REQUESTING STAFF: Sandeep Lenz MD PHONE/PAGER: [phone] SPECIFICS OF THE REQUEST: Renal Biopsy SPECIAL REQUESTS: TISSUE SAMPLE, LABWORK: N/A IS THIS REQUEST PART OF A RESEARCH PROTOCOL: No MEDICAL DIAGNOSIS: MGUS (monoclonal gammopathy of unknown significance) TYPE AND DATE OF THE EXAM THAT IS THE BASIS OF THE REQUEST: PET 03/20/2024 IMAGING: [facility] Note to all persons requesting biopsies: All biopsy requests will be scheduled as quickly as possible, based on the clinical urgency, availability of appointment times, the need to hold anti-thrombolytic therapy (aspirin, blood thinners) and the patient s schedule, including the need for an available concrete truck driver. If a percutaneous biopsy or drainage is not felt to be safe or an alternative method for establishing a diagnosis is possible, this will be discussed directly with the requesting physician. [facility] 04-02-2024 Telephone encounter Note Main id say ;) thank you. [facility] 04-01-2024 Telephone encounter Note Images from the original note were not included. 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 Also may need to see a heart nurse to consider a EGD for the PET results showing distal gastric uptake. Referral for this placed also. [facility] 03-27-2024 Telephone encounter Note ----- Message from Sandeep Lenz MD sent at 03/26/2024 10:45 AM EDT ----- Hi Andrew - your PET CT didn't show any hole or lytic lesions in the bones. So I think we should plan to do a kidney biopsy to determine the imapct of your abnormal protein on the kidneys. [facility] Work Phone: 03-27-2024 Miscellaneous Notes ----- Message from Sandeep Lenz MD sent at 03/26/2024 10:45 AM EDT ----- Hi Andrew - your PET CT didn't show any hole or lytic lesions in the bones. So I think we should plan to do a kidney biopsy to determine the imapct of your abnormal protein on the kidneys. I called and spoke with the Patient's granddaughter. I am waiting on a call back from the Patient to see if the Patient would like to be scheduled with Gastro either in the [facility] or locally here in [place]. Images from the original note were not included. 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 Also may need to see a heart nurse to consider a EGD for the PET results showing distal gastric uptake. Referral for this placed also. documented in this encounter [facility] 03-27-2024 Telephone encounter Note I called and spoke with the Patient's granddaughter. I am waiting on a call back from the Patient to see if the Patient would like to be scheduled with Gastro either in the [facility] or locally here in [place]. [facility] 03-27-2024 Telephone encounter Note Images from the original note were not included. 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 Also may need to see a heart nurse to consider a EGD for the PET results showing distal gastric uptake. Referral for this placed also. 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 NAME: PapoAndrew CLINIC NO.: [id number] DATE OF SERVICE: March 24, 2024 (Yoanna) Some elements in this clinic note that are critical to medical decision making have been carefully reviewed and included from a prior clinic note dated: February 24, 2024 (Yoanna) Referring Provider: Eduardo Sharpe Additional Clinicians involved in Andrew Barros's care: VIRTUAL VISIT PROGRESS NOTE This is a virtual visit using Mendorom Video Visit. It required patient- provider interaction for the medical decision making as documented below. I have communicated my name and active licensure. The patient's identity and physical location wereverified at the time of this visit. Either the patient or their legal bank representative has been informed of the risks and benefits of -- and alternatives to -- treatment through a remote evaluation andconsents to proceed with the evaluation remotely. DIAGNOSIS: History of Breast Cancer ASSESSMENT: 78 [...] 2023. Stopped taking Calcium - level normalized. Seen by Dr. Vince Rojo for renal failure and noted an M-spike of 0.5 g/dL PLAN: Triage to call with PET results Determine need for kidney and/or BMBx - referral to IR for kidney Bx and to GI for endoscopy. RTC in 1 year - Repeat labs - Exam same day. Repeat Mammogram prior to return Stop Arimidex. HPI: CASE HISTORY: Reverse Chronological Order 03/20/2024 - PET/CT: Final reading in process PET negative for lytic lesions. Notes distal gastric uptake. 02/24/2024 - CBC: 9.73 > 13.6 / 42.2 < 285, eGFR: 31, Creatinine: 1.67 Cable: 54.7, Lambda: 23.7, K/L Ratio: 2.31 Ig, IgA: 302, IgM: 426 M-protein concentration: 0.53 08/28/2023 - Bilateral Mammogram Diagnostic category 2 Benign 05/02/2023 - Bone Scan: Negative for osseous mets. 11/14/2021 - Had intracranial hemorrhage with intracerebral hematoma in the right tempora lobe due to HTN and warfarin. 04/24/2021 - DEXA scan World Health Organization classification: Normal-low fracture risk. 01/04/2021 - Mammograms at [facility] Bi-Rads 2 benign. 09/26/2018-11/25/2023 - Arimidex 09/10/2018 - Completed radiation 06/05/2018 - L breast lumpectomy and SNB Updated Visit, March 24, 2024: Virtual Visit Andrew presents for a virtual visit. She is joined by Sugey and her granddaughter, Shasta. 24 hour urine was positive for M-protein and showed her serum M-protein is stable at 0.53. Uric acid is also elevated at 9.7. She had gout about 1 year ago in her hands, has not started on allopurinol. I recommend a kidney biopsy and/or a BMBx, if indicated by PET results. Updated Visit, February 24, 2024: Presents with daughter Sugey and was found to have an M-spike by her accounting professor, Dr. Rojo. We discussed potential diagnoses and implications but will wait until adequate work up and diagnosis. Will start work-up. No other symptoms except for elevated calcium and also worsening kidney function. Updated Visit, November 25, 2023: Returns with Sugey - is getting overwhelmed with changes in medical therapy for her kidneys and heart. Kidey function continues to decline now at Stage 4 kidney failure. Focus on kidney and bladder dysfunction. Likely needs nephrology. Has to void every 2 hours at night. Updated Visit, August 19, 2023: Here with daughter Sugey. Didn't see nephrology as kidney function is stable. May still need to seeendocrine if Calcium is elevated after having stopped [...] ECOG PERFORMANCE STATUS: 0 PHYSICAL EXAMINATION: Vitals: There were no vitals taken for this visit. There is no height or weight on file to calculate BSA. No exam ____ ALLERGIES: ALLERGIES Allergen Reactions Uucuboc-Svb-Ycn Red* Unknown Other reaction(s): AOF MEDICATIONS: anastrozole (ARIMIDEX) 1 mg tablet TAKE 1 TABLET BY MOUTH EVERY DAY (Patient not taking: Reported on 02/24/2024) doxazosin (CARDURA) 4 mg tablet Take 4 mg by mouth daily at bedtime. Takes 2mg in morning then 4mg at night aspirin (ASPIR-81 ORAL) Take 81 mg by [...] Take 1 tablet by mouth twice daily. rivaroxaban (XARELTO) 20 mg tablet Take 20 mg by mouth daily with dinner. (Patient not taking: Reported on 11/25/2023) ezetimibe (ZETIA) 10 mg tablet Take 10 mg by mouth once daily. carvedilol (COREG) 25 mg tablet Take 25 mg by mouth as directed. Takes 1 1/2 tablet 2x a day Multivitamin capsule Take 1 capsule by mouth once daily. (Patient not taking: Reported on 11/25/2023) furosemide (LASIX) 40 mg tablet Take 40 mg by mouth once daily. Alternates with 20mg LABORATORY VALUES: WBC (k/uL) Date Value 02/24/2024 9.73 RBC (m/uL) Date Value 02/24/2024 4.61 Hemoglobin (g/dL) Date Value 02/24/2024 13.6 Hematocrit (%) Date Value 02/24/2024 42.2 MCV (fL) Date Value 02/24/2024 91.5 MCH (pg) Date Value 02/24/2024 29.5 MCHC (g/dL) Date Value 02/24/2024 32.2 RDW-CV (%) Date Value 02/24/2024 13.1 Platelet Count (k/uL) Date Value 02/24/2024 285 MPV (fL) Date Value 02/24/2024 10.8 Glucose (mg/dL) Date Value 02/24/2024 187 (H) BUN (mg/dL) Date Value 02/24/2024 38 (H) Creatinine (mg/dL) Date Value 02/24/2024 1.67 (H) Sodium (mmol/L) Date Value 02/24/2024 142 Potassium (mmol/L) Date Value 02/24/2024 4.8 Chloride (mmol/L) Date Value 02/24/2024 102 CO2 (mmol/L) Date Value 02/24/2024 28 Protein, Total (g/dL) Date Value 02/24/2024 7.3 Albumin (g/dL) Date Value 02/24/2024 4.4 Calcium, Total (mg/dL) Date Value 02/24/2024 11.0 (H) Alkaline Phosphatase (U/L) Date Value 02/24/2024 97 Bilirubin, Total (mg/dL) Date Value 02/24/2024 0.3 AST (U/L) Date Value 02/24/2024 18 ALT (U/L) Date Value 02/24/2024 12 DIAGNOSIS: (D47.2) MGUS (monoclonal gammopathy of unknown significance) (primary encounter diagnosis) Plan: IMAGING GUIDED BIOPSY RENAL (N18.30) Stage 3 chronic kidney disease, unspecified whether stage 3a or 3b CKD (HCC) (D47.2, N29) Monoclonal gammopathy of renal significance (MGRS) Plan: IMAGING GUIDED BIOPSY RENAL (R93.3) Abnormal finding on GI tract imaging Plan: CONSULT TO GASTROENTEROLOGY PAST MEDICAL HISTORY Diagnosis Date Atrial fibrillation [...] which included preparing to see the patient, completing clinical documentation, obtaining and/or reviewing separately obtained history, counseling and educating the patient/family/caregiver, ordering medications, tests, or procedures, communic ating with other HCPs (not separately reported), independently interpreting results (not separatelyreported), communicating results to the patient/family/caregiver, and care coordination (not separately reported). Sandeep Lenz MD, CPE Hematology and Oncology Services Provided at: [place], [place] Scribe Attestation: This note was scribed by Karla Perez on March 24, 2024 under the direction and supervision of Dr. Sandeep Lenz. I attest that all of the information documented is correct to the best of my knowledge. Provider Attestation: I, Sandeep Lnez MD, attest that all information documented by the above scribe is correct, and was supervised by me and under my direction. CC: Eduardo Sharpe MD [address] [facility] [id number] documented in this encounterThe [facility]07-02-2024 NoteHNO ID: [id number] Author: SANDEEP LENZ MD Service: ? Author Type: Physician Type: Progress Notes Filed: 03/26/2024 11:16 Note Text: NAME: Andrew Barros CLINIC NO.: [id number] DATE OF SERVICE: March 24, 2024 (Yoanna) Some elements in this clinic note that are critical to medical decision making have been carefully reviewed and included from a prior clinic note dated: February 24, 2024 (Yoanna) Referring Provider: Eduardo Sharpe Additional Clinicians involved in Andrew Barros's care: VIRTUAL VISIT PROGRESS NOTE This is a virtual visit using Mendorom Video Visit. It required patient-provider interaction for the medical decision making as documented below. I have communicated my name and active licensure. The patient's identity and physical location were verified at the time of this visit. Either the patient or their legal bank representative has been informed of the risks and benefits of -- and alternatives to -- treatment through a remote evaluation and consents to proceed with the evaluation remotely. DIAGNOSIS: History of Breast Cancer ASSESSMENT: 78 [...] 2023. Stopped taking Calcium - level normalized. Seen by Dr. Vince Rojo for renal failure and noted an M-spike of 0.5 g/dL PLAN: Triage to call with PET results Determine need for kidney and/or BMBx - referral to IR for kidney Bx and to GI for endoscopy. RTC in 1 year - Repeat labs - Exam same day. Repeat Mammogram prior to return Stop Arimidex. HPI: CASE HISTORY: Reverse Chronological Order 03/20/2024 - PET/CT: Final reading in process PET negative for lytic lesions. Notes distal gastric uptake. 02/24/2024 - CBC: 9.73 > 13.6 / 42.2 < 285, eGFR: 31, Creatinine: 1.67 Cable: 54.7, Lambda: 23.7, K/L Ratio: 2.31 Ig, IgA: 302, IgM: 426 M-protein concentration: 0.53 08/28/2023 - Bilateral Mammogram Diagnostic category 2 Benign 05/02/2023 - Bone Scan: Negative for osseous mets. 11/14/2021 - Had intracranial hemorrhage with intracerebral hematoma in the right tempora lobe due to HTN and warfarin. 04/24/2021 - DEXA scan World Health Organization classification: Normal-low fracture risk. 01/04/2021 - Mammograms at [facility] Bi-Rads 2 benign. 09/26/2018-11/25/2023 - Arimidex 09/10/2018 - Completed radiation 06/05/2018 - L breast lumpectomy and SNB Updated Visit, March 24, 2024: Virtual Visit Andrew presents for a virtual visit. She is joined by Sugey and her granddaughter, Shasta. 24 hour urine was positive for M-protein and showed her serum M-protein is stable at 0.53. Uric acid is also elevated at 9.7. She had gout about 1 year ago in her hands, has not started on allopurinol. I recommend a kidney biopsy and/or a BMBx, if indicated by PET results. Updated Visit, February 24, 2024: Presents with daughter Sugey and was found to have an M-spike by her accounting professor, Dr. Rojo. We discussed potential diagnoses and implications but will wait until adequate work up and diagnosis. Will start work-up. No other symptoms except for elevated calcium and also worsening kidney function. Updated Visit, November 25, 2023: Returns with Sugey - is getting overwhelmed with changes in medical therapy for her kidneys and heart. Kidey function continues to [...] Had been On Xarelto up until 3 mon (more content not included)...[facility]06-28-2024 History of Present illness Narrative* Leif Moulton, RT(R) - 03/20/2024 1:30 PM EDT RADIOLOGY SERVICE PROGRESS NOTE SERVICE DATE: 03/20/2024 SERVICE TIME: 2:25 PM PATIENT IDENTITY VERIFICATION COMPLETED USING TWO (2) STANDARD IDENTIFIERS: Name and Date of confirmed by patient verbally FALL SCREENING: Has the patient had 2 falls in the last year or 1 fall with injury or currently using an Ambulatory Assistive Device (Walker, Cane, Wheelchair, Crutches, etc.)? No PATIENT GENDER DATA: .female : No ALLERGIES: Reviewed and unchanged MEDICATIONS REVIEWED: Not applicable PATIENT RELEVANT IMPLANT DATA REVIEWED: Not Applicable PATIENT PRESENTS WITH AN IMPLANTABLE OR ATTACHED ACID DUMPER: No CREATININE: Creatinine Date Value Ref Range Status 02/24/2024 1.67 (H) 0.58 - 0.96 mg/dL Final 11/25/2023 1.66 (H) 0.58 - 0.96 mg/dL Final 08/19/2023 1.27 (H) 0.58 - 0.96 mg/dL Final Estimated Glomerular Filtration Rate Date Value Ref Range Status 02/24/2024 31 (L) >=60 mL/min/1.73m Final Comment: Estimated Glomerular Filtration Rate (eGFR) is calculated using the 2020 CKD-EPI creatinine equation. This equation utilizes serum creatinine, sex, and age as parameters. The creatinine assay has traceable calibration to isotope dilution- mass spectrometry. Refer to KDIGO guidelines for clinical interpretation. In patients with unstable renal function, e.g. those with acute kidney injury, the eGFRmay not accurately reflect actual GFR. eGFR- Date Value Ref Range Status 07/21/2021 50 Final P.O.C.T. RESULTS: POC done: Yes, See Lab Tab March 20, [address] PERFORMED: No IV SITE: Ambulatory: A peripheral IV was started in the Left hand with a Angio cath: 24 gauge. POST EXAM PIV STATUS: Discontinued PROCEDURE TYPE: NM INJECT: PET/CT WHOLE BODY SCAN. 6.6 mCi F18 FDG. No other medications given.. ADMINISTRATION TIME: 1337 PATIENT DISCHARGED TO: Ambulatory patient, left [place] department area. A Diagnostic radioactive procedure has taken place, with no further precautions necessary other than routine body substance precautions. More information regarding radiation safety can be found usingthis link: [email or web address]%[email or web address]%20Medicine%[email or web address] SIGNATURE: MINGO Campoverde) PATIENT NAME: Andrew Barros DATE: March 20, 2024 TIME: 2:25 PM PAGER/CONTACT #: documented in this encounterThe [facility]06-28-2024 NoteHNO ID: [id number] Author: LEIF MOULTON RT(R) Service: ? Author Type: Technologist Type: Progress Notes Filed: 03/20/2024 14:26 Note Text: RADIOLOGY SERVICE PROGRESS NOTE SERVICE DATE: 03/20/2024 SERVICE TIME: 2:25 PM PATIENT IDENTITY VERIFICATION COMPLETED USING TWO (2) STANDARD IDENTIFIERS: Name and Date of confirmed by patient verbally FALL SCREENING: Has the patient had 2 falls in the last year or 1 fall with injury or currently using an Ambulatory Assistive Device (Walker, Cane, Wheelchair, Crutches, etc.)? No PATIENT GENDER DATA: .female : No ALLERGIES: Reviewed and unchanged MEDICATIONS REVIEWED: Not applicable PATIENT RELEVANT IMPLANT DATA REVIEWED: Not Applicable PATIENT PRESENTS WITH AN IMPLANTABLE OR ATTACHED ACID DUMPER: No CREATININE: Creatinine Date Value Ref Range Status 02/24/2024 1.67 (H) 0.58 - 0.96 mg/dL Final 11/25/2023 1.66 (H) 0.58 - 0.96 mg/dL Final 08/19/2023 1.27 (H) 0.58 - 0.96 mg/dL Final Estimated Glomerular Filtration Rate Date Value Ref Range Status 02/24/2024 31 (L) >=60 mL/min/1.73m? Final Comment: Estimated Glomerular Filtration Rate (eGFR) is calculated using the 2020 CKD-EPI creatinine equation. This equation utilizes serum creatinine, sex, and age as parameters. The creatinine assay has traceable calibration to isotope dilution-mass spectrometry. Refer to KDIGO guidelines for clinical interpretation. In patients with unstable renal function, e.g. those with acute kidney injury, the eGFR may not accurately reflect actual GFR. eGFR- Date Value Ref Range Status 07/21/2021 50 Final P.O.C.T. RESULTS: POC done: Yes, See Lab Tab March 20, [address] PERFORMED: No IV SITE: Ambulatory: A peripheral IV was started in the Left hand with a Angio cath: 24 gauge. POST EXAM PIV STATUS: Discontinued PROCEDURE TYPE: NM INJECT: PET/CT WHOLE BODY SCAN. 6.6 mCi F18 FDG. No other medications given.. ADMINISTRATION TIME: 1337 PATIENT DISCHARGED TO: Ambulatory patient, left [place] department area. A Diagnostic radioactive procedure has taken place, with no further precautions necessary other than routine body substance precautions. More information regarding radiation safety can be found using this link: [email or web address] SIGNATURE: RT Gilles(R) PATIENT NAME: Andrew Barros DATE: March 20, 2024 TIME: 2:25 PM PAGER/CONTACT #:[facility]06-12-2024 Telephone encounter Note* Telephone Encounter - Jennifer Otero - 03/04/2024 1:[address] Perry: Patient had labs drawn on 02/25. Patient was scheduled for a phone visit with you on 03/17. We have rescheduled this phone visit to 03/24. Thank You, Jennifer Covington [facility]06-12-2024 Miscellaneous Notes* Telephone Encounter - Jennifer Otero - 03/04/2024 1:[address] Perry: Patient had labs drawn on 02/25. Patient was scheduled for a phone visit with you on 03/17. We have rescheduled this phone visit to 03/24. Thank You, Jennifer Covington documented in this encounterThe [facility] Of [facility]06-03-2024 Instructions* Patient Instructions* Sandeep Lenz MD - 02/24/2024 11:46 AM EDT Labs today in addition to previously drawn Workup for MGUS. Needs 24 H urine collection also Virtual visit in 15 days. documented in this encounterThe [facility] Of [facility]06-03-2024 Nurse Note* Arabella Plascencia MA - 02/24/2024 11:31 AM EDT Patient is here due to Refrigeration Supervisor being concerned with abnormal blood work. Arabella Cotter MA [facility]06-03-2024 Nurse Note* Arabella Cotter MA - 02/24/2024 11:31 AM EDT Patient is here due to Refrigeration Supervisor being concerned with abnormal blood work. Arabella Cotter MA documented in this encounterThe [facility]06-03-2024 History of Present illness Narrative* Sandeep Lenz MD - 02/24/2024 11:30 AM EDT Images from the original note were not included. NAME: Andrew Barros [facility] NO[facility] [id number] DATE OF SERVICE: February 24, 2024 (Yoanna) Some elements in this clinic note that are critical to medical decision making have been carefully reviewed and included from a prior clinic note dated: November 25, 2023 (Yoanna) Referring Provider: Eduardo Sharpe Additional Clinicians involved [...] 2023. Stopped taking Calcium - level normalized. Seen by Dr. 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 Needs 24 H urine collection also Virtual visit in 15 days. RTC in 1 year - repeat labs [...] Normal-low fracture risk. 01/04/2021 - Mammograms at [facility] Bi-Rads 2 benign. 09/26/2018 - Started arimidex 09/10/2018 - Completed radiation 06/05/2018 - L breast lumpectomy and SNB Updated Visit, February 24, 2024: Presents with daughter Sugey and was found to have an M-spike by her accounting professor, Dr. Rojo. We discussed potential diagnoses and implications but will wait until adequate work up and diagnosis. Will start work-up. No other symptoms except for elevated calcium and also worsening kidney function. Updated Visit, November 25, 2023: Returns with [...] function is stable. May still need to seeendocrine if Calcium is elevated after having stopped [...] PERFORMANCE STATUS: 0 PHYSICAL EXAMINATION: Vitals: BP 155/77 Pulse 63 Temp (Src) 97.3 (Temporal) Resp 16 Ht 5' 3.071 (1.60m) Wt 134lb 11.2 oz (61.1kg) SpO2 95% BMI 23.81 kg/(m^2). Body surface area is 1.65 meters squared. Exam limited to gross visualization [...] skin without rash, lesions, wounds or petechiae. ____ ALLERGIES: ALLERGIES Allergen Reactions Vevborc-Mwk-Fqu Red* Unknown Other reaction(s): AOF MEDICATIONS: doxazosin (CARDURA) 4 mg tablet Take 4 mg by mouth daily at bedtime. Takes 2mg in morning then 4mg at night aspirin (ASPIR-81 ORAL) Take 81 mg by [...] Take 40 mg by mouth once daily. Alternates with 20mg anastrozole (ARIMIDEX) 1 mg tablet TAKE 1 TABLET BY MOUTH EVERY DAY (Patient not taking: Reported on 02/24/2024) rivaroxaban (XARELTO) 20 mg tablet Take 20 mg by mouth daily with dinner. (Patient not taking: Reported on 11/25/2023) Multivitamin capsule Take 1 capsule by mouth once daily. (Patient not taking: Reported on 11/25/2023) LABORATORY VALUES: WBC (k/uL) Date Value 02/24/2024 9.73 RBC (m/uL) Date Value 02/24/2024 4.61 Hemoglobin (g/dL) Date Value 02/24/2024 13.6 Hematocrit (%) Date Value 02/24/2024 42.2 MCV (fL) Date Value 02/24/2024 91.5 MCH (pg) Date Value 02/24/2024 29.5 MCHC (g/dL) Date Value 02/24/2024 32.2 RDW-CV (%) Date Value 02/24/2024 13.1 Platelet Count (k/uL) Date Value 02/24/2024 285 MPV (fL) Date Value 02/24/2024 10.8 Glucose (mg/dL) Date Value 02/24/2024 187 (H) BUN (mg/dL) Date Value 02/24/2024 38 (H) Creatinine (mg/dL) Date Value 02/24/2024 1.67 (H) Sodium (mmol/L) Date Value 02/24/2024 142 Potassium (mmol/L) Date Value 02/24/2024 4.8 Chloride (mmol/L) Date Value 02/24/2024 102 CO2 (mmol/L) Date Value 02/24/2024 28 Protein, Total (g/dL) Date Value 02/24/2024 8.1 (H) Albumin (g/dL) Date Value 02/24/2024 4.4 Calcium, Total (mg/dL) Date Value 02/24/2024 11.0 (H) Alkaline Phosphatase (U/L) Date Value 02/24/2024 97 Bilirubin, Total (mg/dL) Date Value 02/24/2024 0.3 AST (U/L) Date Value 02/24/2024 18 ALT (U/L) Date Value 02/24/2024 12 DIAGNOSIS: (D47.2) MGUS (monoclonal gammopathy of unknown significance) (primary encounter diagnosis) Plan: B2 MICROGLOBULIN, LACTATE DEHYDROGENASE, PHOSPHORUS INORGANIC, PROTEIN ELECTROPHORESIS SERUM W/INTERP, MONOCLONAL PROTEIN, SERUM (BLOOD), URIC ACID, CALCIUM, IONIZED, PROT ELEC UR 24HR W/M SPIKE AND INTERP, MONOCLONAL PROT 24 UR W/INTERP (E83.52) Hypercalcemia (N18.30) Stage 3 chronic kidney disease, unspecified whether stage 3a or 3b CKD (HCC) (C50.412, Z17.0) Malignant neoplasm of upper-outer quadrant of left breast in female, estrogen receptor positive (HCC) PAST MEDICAL HISTORY Diagnosis Date Atrial [...] on file. I spent a total of 40 minutes on the date of the service which included preparing to see the patient, [id number] patient care, completing clinical documentation, obtaining and/or reviewing separately obtained history, performing a medically appropriate examination, counseling and educating the pat ient/family/caregiver, ordering medications, tests, or procedures, independently interpreting results (not separately reported), communicating results to the patient/family/caregiver, and care coordination (not separately reported). Sandeep Lenz MD, CPE Hematology and Oncology Services Provided at: [place], [place] CC: Eduardo Sharpe MD [address] [facility] [id number] documented in this encounterThe [facility]06-03-2024 NoteHNO ID: [id number] Author: SANDEEP LENZ MD Service: ? Author Type: Physician Type: Progress Notes Filed: 02/24/2024 19:22 Note Text: NAME: Andrew Barros CLINIC NO.: [id number] DATE OF SERVICE: February 24, 2024 (Yoanna) Some elements in this clinic note that are critical to medical decision making have been carefully reviewed and included from a prior clinic note dated: November 25, 2023 (Yoanna) Referring Provider: Eduardo Sharpe Additional Clinicians involved [...] 2023. Stopped taking Calcium - level normalized. Seen by Dr. 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 Needs 24 H urine collection also Virtual visit in 15 days. RTC in 1 year - repeat labs [...] Normal-low fracture risk. 01/04/2021 - Mammograms at [facility] Bi-Rads 2 benign. 09/26/2018 - Started arimidex 09/10/2018 - Completed radiation 06/05/2018 - L breast lumpectomy and SNB Updated Visit, February 24, 2024: Presents with daughter Sugey and was found to have an M-spike by her accounting professor, Dr. Rojo. We discussed potential diagnoses and implications but will wait until adequate work up and diagnosis. Will start work-up. No other symptoms except for elevated calcium and also worsening kidney function. Updated Visit, November 25, 2023: Returns with [...] negative by full review of organ systems. (more content not included)... [facility]05-29-2024 NoteUT Cardiology - [facility] Subjective Andrew Barros is a 78 y.o. year old female patient being seen for follow up echo done a few weeks ago. She also had labs for her accounting professor. Denies chest pain, SOB, palpitations, and lightheadedness/syncope. Says she has not fallen since last visit in Sep 2023. Still has intermittent LE edema, which is minimal. Patient Active Problem List Diagnosis Congestive heart failure (CMS/HCC) Hypertensive disorder Malignant neoplasm of upper-outer quadrant of left breast in female, estrogen receptor positive (CMS/HCC) Mitral valve regurgitation Other specified menopausal and perimenopausal disorders Paroxysmal atrial fibrillation (CMS/HCC) Type 2 diabetes mellitus (CMS/HCC) History of intracranial hemorrhage Hypercalcemia Stage 3 chronic kidney disease (CMS/HCC) Acute exacerbation of CHF (congestive heart failure) (CMS/HCC) Acute hypoxemic respiratory failure (CMS/HCC) Age-related nuclear cataract of left eye Anemia of renal disease COVID-19 Hyperlipidemia Nontraumatic intracerebral hemorrhage (CMS/HCC) Pneumonia Primary open angle glaucoma (POAG) of both eyes, mild stage Proteinuria Pulmonary embolus (CMS/HCC) Secondary hyperparathyroidism (CMS/HCC) Sepsis (CMS/HCC) Family History Problem Relation Name Age [...] severely ulcerated atheroma in the descending aorta. In February 2023 she was admitted to the [facility] emergency room with epistaxis. She was [...] Flagyl. Creatinine improved from 2 to 1.44. Since last visit with me on 10/16/2023 she has been doing relatively well. She reports that she has no shortness of breath. She has no chest pain. She has bilateral lower extremity swelling. No palpitations. Her recent echocardiogram in January 2024 showed moderate severe mitral regurgitation, moderately elevated right-sided pressures and moderate tricuspid regurgitation. Review of Systems Constitutional: Positive for malaise/fatigue. HENT: Positive for hearing loss. Cardiovascular: Positive for leg swelling (minimal). All other systems reviewed and are negative. Objective Visit Vitals BP 150/78 (BP Location: Left arm, Patient Position: Sitting) Pulse 56 Ht 1.651 m (5' 5 ) Wt 59.4 kg (131 lb) SpO2 97% BMI 21.80 kg/m??? Smoking Status Never BSA 1.65 m??? Physical Exam Constitutional: Appearance: She is well-developed. She is not ill-appearing. Comments: Thin appearing HENT: Head: Normocephalic and atraumatic. Nose: Nose normal. Eyes: General: No scleral icterus. Pupils: Pupils are equal, round, and reactive to light. Neck: Thyroid: No thyromegaly. Vascular: No JVD. Cardiovascular: Rate and Rhythm: Normal rate and regular rhythm. Pulses: Radial pulses are 2+ on the right side a (more content not included)... [facility]05-21-2024 Telephone encounter Note* Telephone Encounter - Aileen Miller - 02/11/2024 9:38 AM EDT Records scanned. [facility]05-21-2024 Miscellaneous Notes* Telephone Encounter - Aileen Miller - 02/11/2024 9:38 AM EDT Records scanned. * Telephone Encounter - Clemente Srivastava RN - 02/10/2024 2:40 PM EDT Pt seen by [facility] accounting professor, (unsure of whom), yesterday. Labs resulted high calcium and high protein. Recommended to see Dr Perry for further workup of cancer. Pt daughter transferred to [facility] to schedule. Lisa: please obtain records/nephrology office visit [place]: FYI; pt scheduled 02/24/24 for follow up to discuss Clemente Srivastava RN documented in this encounterThe [facility] Telephone encounter Note * Telephone Encounter - Clemente Srivastava RN - 02/10/2024 2:40 PM EDT Pt seen by [facility] accounting professor, (unsure of whom), yesterday. Labs resulted high calcium and high protein. Recommended to see Dr Perry for further workup of cancer. Pt daughter transferred to [facility] to schedule. Lisa: please obtain records/nephrology office visit [place]: FYI; pt scheduled 02/24/24 for follow up to discuss Clemente Srivastava RN [facility]03-04-2024 Instructions* Patient Instructions* Sandeep Lenz MD - 11/25/2023 3:25 PM EST RTC in 1 year - repeat labs - Exam same day. Repeat Mammogram prior to return Stop Arimidex. documented in this encounterThe [facility]03-[facility] History of Present illness Narrative* Sandeep Lenz MD - 11/25/2023 2:15 PM EST Images from the original note were not included. NAME: Andrew Barros [facility] NO.: [id number] DATE OF SERVICE: November 25, 2023 (Yoanna) Some elements in this clinic note that are critical to medical decision making have been carefully reviewed and included from a prior clinic note dated: August 19, 2023 (Yoanna) Referring Provider: Eduardo Sharpe Additional Clinicians involved [...] Normal-low fracture risk. 01/04/2021 - Mammograms at [facility] Bi-Rads 2 benign. 09/26/2018 - Started [...] function is stable. May still need to seeendocrine if Calcium is elevated after having stopped [...] Resp 18 Ht 5' 4.016 (1.63m) Wt 140lb 14 oz (63.9kg) SpO2 94% BMI 24.17 [...] skin without rash, lesions, wounds or petechiae. ____ ALLERGIES: ALLERGIES Allergen Reactions Ifbmntl-Zux-Wpr Red* Unknown Other reaction(s): AOF MEDICATIONS: anastrozole [...] which included preparing to see the patient, tgca-yq-zyio patient care, completing clinical documentation, obtaining and/or reviewing separately obtained history, performing a medically appropriate examination, communicating results to the pat ient/family/caregiver and care coordination (not separately reported). Sandeep Lenz MD, CPE Hematology and Oncology Services Provided at: [place], [place] CC: Eduardo Sharpe MD [address] [place] [address] documented in this encounterThe [facility]03-04-2024 NoteHNO ID: [id number] Author: SANDEEP LENZ MD Service: ? Author Type: Physician Type: Progress Notes Filed: 11/25/2023 19:36 Note Text: NAME: BarrosAndrew [facility] NO.: [id number] DATE OF SERVICE: November 25, 2023 (Yoanna) Some elements in this clinic note that are critical to medical decision making have been carefully reviewed and included from a prior clinic note dated: August 19, 2023 (Yoanna) Referring Provider: Eduardo Sharpe Additional Clinicians involved [...] Normal-low fracture risk. 01/04/2021 - Mammograms at [facility] Bi-Rads 2 benign. 09/26/2018 - Started [...] to light, extraocular muscles (more content not included)...[facility]03-04-2024 Evaluation note* Diagnosis Malignant neoplasm of upper-outer quadrant of left breast in female, estrogen receptor positive (HCC)- Primary Stage 3 chronic kidney disease, unspecified whether stage 3a or 3b CKD (HCC) Breast screening Breast screening, unspecified Encounter for screening mammogram for malignant neoplasm of breast Other screening mammogram Hypercalcemia documented in this encounter [facility]02-08-2024 History of Present illness Narrative* Mark Isabel [...] @ 11:13 AM Additional Tests Keratometry K1 Lind K2 Lind Right 43.50 153 44 63 Left 43.75 [...] Normal Normal Refraction Wearing Rx Sphere Cylinder Lind Add Right -1.00 +0.00 180 +2.50 Left +1.75 -0.50 036 +2.50 Manifest Refraction Sphere Cylinder Lind Right -0.25 -0.75 141 Left Final Rx Sphere Cylinder Lind Dist [place] Add Right -1.00 20/25 +2.50 [...] different lens options were explained including the pho-yt-pizlre fees for any upgrades. Intraocular lens (IOL) [...] to remain poorly compliant. documented in this encounterI-70 Community [id number] NoteUT Cardiology [facility] Josse Barros is a 78 y.o. year old female patient being seen for 6 mo follow up PAD, mitral valve regurgitation, chronic diastolic heart failure, and hypertension. Lisinopril was stopped at last visit in February 2023, and doxazosin was started. She was admitted to [facility] 2 weeks ago for hypomagnesemia and [...] February 2023 she was admitted to the [facility] emergency room with epistaxis. She was [...] and regular rhythm. (more content not included)... [facility]11-27-2023 Miscellaneous Notes* Telephone Encounter - Clemente [...] Kidney function is stable documented in this encounterThe [facility]11-27-2023 NoteHNO ID: [id number] Author: Sandeep Lenz MD Service: ? Author Type: Physician Type: Progress Notes Filed: 08/20/2023 7:07 AM Note Text: Kathy nephrology NAME: Papo Andrew [facility] NO.: [id number] DATE OF SERVICE: August 19, 2023 (Yoanna) Some elements in this clinic note that are critical to medical decision making have been carefully reviewed and included from a prior clinic note dated: May 20, 2023 (Yoanna) Referring Provider: Eduardo Sharpe Additional Clinicians involved [...] start on Vit-D + Calcium. Mammograms at [facility] on 01/04/2021 Bi-Rads 2 benign. [...] wounds or petechiae. ALLERGIES (more content not included)...[facility]09-18-2023 Miscellaneous Notes* Telephone Encounter - Jennifer Otero - 06/10/2023 12:53 PM EDT Called Nephrology office spoke with Paola. She states they did receive this referral and have patient scheduled to see Dr Hartman on 07/03 @ 3:00. Jennifer Covington * Telephone Encounter - Jennifer Otero - 06/06/2023 2:31 PM EDT I called Neph office left message for their office we did re-fax this referral and [facility] and see if patient has been scheduled yet. I asked their office to call us back with status of this referral. Jennifer Covington * [facility] 06/05/2023 10:35 AM EDT Records re-faxed to Nephrology. * Telephone Encounter - Jennifer Otero - 06/05/2023 9:55 AM EDT Called spoke with Deepika at Nephrology office. She states she has not received this referral and has asked us to please refax it. LISA: Please refax this referral to Nephrology office. Thank You. Jennifer Covington * Telephone Encounter - Aileen Miller - 05/30/2023 7:48 AM EDT Records faxed to Nephrology. * Telephone Encounter - Jennifer Otero - 05/22/2023 8:46 AM EDT Lisa: Information ready for you. Jennifer Covington * Telephone Encounter - Francia Anderson - 05/20/2023 4:06 PM EDT Refer to nephrology for hypercalcemia and kidney failure Lisa/Yan: Can you please refer patient and follow up? Thanks! Francia Anderson documented in this encounterThe [facility]08-29-2023 Miscellaneous Notes* Telephone Encounter - Clemente Srivastava RN - 05/21/2023 10:18 AM EDT Pt aware of results and denies any questions or concerns at this time. She was transferred to [facility] to set up Q 6 week lab appts as requested. Clemente Srivastava RN * Telephone Encounter - Clemente Srivastava RN - 05/21/2023 10:18 AM EDT ----- Message from Sandeep Lenz MD sent at 05/21/2023 10:15 AM EDT ----- Calcium was improved. - kidney function stable. CBC was normal. documented in this encounterThe [facility] Of [facility]08-28-2023 Instructions* Patient Instructions* Sandeep Lenz MD - 05/20/2023 3:59 PM EDT Continue Arimidex. Refer to nephrology for hypercalcemia and kidney failure Repeat labs today RTC in 3 months - repeat labs documented in this encounterThe [facility]08-28-2023 History of Present illness Narrative* Sandeep Lenz MD - 05/20/2023 3:27 PM EDT [facility] NAME: BarrosAndrew [facility] NO.: [id number] DATE OF SERVICE: May 20, 2023 (Yoanna) Some elements in this clinic note that are critical to medical decision making have been carefully reviewed and included from a prior clinic note dated: April 29, 2023 (Yoanna) Referring Provider: Eduardo Sharpe Additional Clinicians involved [...] start on Vit-D + Calcium. Mammograms at [facility] on 01/04/2021 Bi-Rads 2 benign. [...] wounds or petechiae. ALLERGIES: ALLERGIES Allergen Reactions Ppvgxwz-Twc-Lwx Red* Unknown Other reaction(s): AOF MEDICATIONS: anastrozole [...] which included preparing to see the patient, vkwr-uh-nrif patient care, completing clinical documentation, obtaining and/or reviewing separately obtained history, performing a medically appropriate examination, communicating results to the pat ient/family/caregiver and care coordination (not separately reported). Sandeep Lenz MD, CPE Services Provided at: [place], [place] & [place], [place] CC: Eduardo Sharpe MD [address] [facility] [address] documented in this encounterThe [facility]08-17-2023 History of Present illness Narrative* Aleida Vargas LSW - 05/09/2023 10:59 AM EDT Patient appears on the [facility] First Time Treatment List for a non-oncology treatment. No psychosocial assessment is indicated. DAPHNE Gupta documented in this encounterThe [facility] Of [facility]08-07-2023 Instructions* Patient Instructions* Sandeep Lenz MD - 04/29/2023 4:09 PM EDT Continue Arimidex. Stop Calcium Continue Vitamin D. Zometa for hypercalcemia later this week Repeat labs and tumor markers prior to zometa Bone scan - TBH is fine. RTC after Bone scan documented in this encounterThe [facility]08-07-2023 History of Present illness Narrative* Sandeep Lenz MD - 04/29/2023 4:01 PM EDT Images from the original note were not included. NAME: Andrew Barros [facility] NO.: [id number] DATE OF SERVICE: April 29, 2023 (Yoanna) Some elements in this clinic note that are critical to medical decision making have been carefully reviewed and included from a prior clinic note dated: January 08, 2022 (Yoanna) Referring Provider: Eduardo Sharpe Additional Clinicians involved [...] start on Vit-D + Calcium. Mammograms at [facility] on 01/04/2021 Bi-Rads 2 benign. [...] of recurring mass. ALLERGIES: ALLERGIES Allergen Reactions Gsicbay-Psq-Yaf Red* Unknown Other reaction(s): AOF MEDICATIONS: doxazosin [...] acetaminophen 650 mg tab(s) (TYLENOL), DISCONTINUED: zoledronic po-qzgrhiql-2.9NaCl 4 mg iv piggyback 100 mL (ZOMETA) (E83.52) Hypercalcemia Plan: CA 27.29 BLOOD, CA 15-3 BLD, CBC + DIFF, COMP METABOLIC PANEL, PTH, INTACT (WITHOUT CALCIUM), PTH RELATED PEPTIDE, PTH, INTACT (WITHOUT CALCIUM), DISCONTINUED: PHARMACY COMMUNICATION PATIENT ARRIVED, DISCONTINUED: acetaminophen 650 mg tab(s) (TYLENOL), DISCONTINUED: zoledronic pn-bhfxuofj-2.9NaCl 4 mg iv piggyback 100 mL (ZOMETA) [...] which included preparing to see the patient, poyx-sb-mcmj patient care, completing clinical documentation, obtaining and/or reviewing separately obtained history, performing a medically appropriate examination, communicating results to the pat ient/family/caregiver and care coordination (not separately reported). Sandeep Lenz MD, CPE Services Provided at: [facility], [place], [place] & [place], [place] CC: Eduardo Sharpe MD [address] [facility] [address] documented in this encounterThe [facility] Of [facility]07-10-2023 NoteUT Cardiology - [facility] Subjective Andrew Barros is a 77 y.o. [...] February 2023 she was admitted to the [facility] emergency room with epistaxis. She was [...] Skin: General: Skin i (more content not included)...[facility]10-07-2022 Miscellaneous Notes* Telephone Encounter - Arabella Rodriguez MA - 06/29/2022 3:14 PM EDT Patient has an appt on 07/09/22. Would you like labs, if so place orders. Arabella Cotter MA documented in this encounterThe [facility] Of [facility]08-27-2022 History of Present illness Narrative* Kristian Mcwilliams MD - 05/19/2022 12:13 PM EDT Images from the original note were not included. EMERGENCY TRIAGE, TREAT AND TRANSPORT (ET3) DOCUMENTATION OF TELEHEALTH VISIT Date / Time: 05/19/2022 / 1130 Name: Andrew Barros : 1945 SSN: (Not on file) EMS Agency: [facility] [x] Verbal consent obtained [] [...] by: Kristian Mcwilliams MD documented in this [id number] History of Present illness Narrative* Herbert Pelaez [...] was otherwise noncontributory. ALLERGIES ALLERGIES Allergen Reactions Irwcxet-Rdw-Fuk Red* Unknown Other reaction(s): AOF MEDICATIONS: Current [...] which included preparing to see the patient, pvcw-ye-gpts patient care and counseling and educating the patient/family/caregiver. This document has been created with the use of voice recognition technology. It may contain inaccuracies, misspellings, inaccurate syntax or inappropriate word context that are a result of the inadequacies/shortcomings of said technology/software. documented in this encounterThe [facility]04-18-2022 History of Present illness Narrative* Sandeep Lenz MD - 01/08/2022 1:25 PM EDT Images from the original note were not included. NAME: Andrew Barros [facility] NO.: [id number] DATE OF SERVICE: January 08, 2022 Some [...] start on Vit-D + Calcium. Mammograms at [facility] on 01/04/2021 Bi-Rads 2 benign. [...] of recurring mass. ALLERGIES: ALLERGIES Allergen Reactions Axylfsp-Srd-Qwz Red* Unknown Other reaction(s): AOF MEDICATIONS: amLODIPine [...] which included preparing to see the patient, syov-si-accq patient care, completing clinical documentation, obtaining and/or reviewing separately obtained history, performing a medically appropriate examination, communicating results to the pat ient/family/caregiver and care coordination (not separately reported). Sandeep Lenz MD, CPE Services Provided at: [place], [place] & [place], [place] CC: Eduardo Shapre MD [address] [facility] [address] documented in this encounterThe [facility] Of [facility]04-18-2022 Nurse Note* Arabella Cotter MA - 01/08/2022 1:07 PM EDT Patient has had brain bleeds since being here last she is seeing Dr. Hernandez , she has been [facility] [place] an [place] due to the bleeds. Arabella Rodriguze MA documented in this encounterThe [facility] Of [facility]03-10-2022 Evaluation note* Encounter Date Diagnosis Assessment Notes [...] present CT and compared to the previous. [employer] Other 12-25-2020 NoteMicrobiology PROCEDURE: Blood Culture Charcoal [R1] SOURCE: Blood BODY SITE: Arm L COLLECTED DATE/TIME: 09/09/2020 13:00 EST RECEIVED DATE/TIME: 09/09/2020 14:05 EST START DATE/TIME: 09/09/2020 14:05 EST FREE TEXT SOURCE: Hayder Gallardo DO, DO, John FINAL REPORTS Final Report [] Verified Date/Time: 09/16/2020 16:03 EST No growth at 7 days. Performing Locations R1: This test was performed at: [facility], [address] [place] [address], [address] [place] [address], GwfckmLicking Memorial HospitalComment on above:Performed By: #### [id number] ####[facility] [address] [place] [address] [id number] NoteMicrobiology PROCEDURE: Blood Culture Charcoal [R1] SOURCE: Blood BODY SITE: Hand L COLLECTED DATE/TIME: 09/09/2020 13:49 EST RECEIVED DATE/TIME: 09/09/2020 14:06 EST START DATE/TIME: 09/09/2020 14:06 EST FREE TEXT SOURCE: Hayder Pettit DO, DO, John FINAL REPORTS Final Report [] Verified Date/Time: 09/16/2020 16:01 EST No growth at 7 days. Performing Locations R1: This test was performed at: [facility], [address] [place] [address], [id number]- , , CdvjapLicking Memorial HospitalComment on above:Performed By: #### [id number] #### [facility] [address] [place], [place] [id number] note* Diagnosis Onset Date Resolution Status Atrial fibrillation acute Diabetes acute Hypertension acute Intracerebral hemorrhage acu te Nontraumatic intracerebral hemorrhage acute [facility] Work Phone: Evaluation note* Diagnosis Malignant neoplasm of upper-outer quadrant of left breast in female, estrogen receptor positive (HCC)- Primary Encounter for screening for osteoporosis Special screening for osteoporosis Hypercalcemia documented in this encounter [facility]* Diagnosis Malignant neoplasm of upper-outer quadrant of left breast in female, estrogen receptor positive (HCC)- Primary [facility] this encounter [facility]* Diagnosis Dyspnea, unspecified type- Primary [facility] Diagnosis Malignant neoplasm of upper-outer quadrant of left breast in female, estrogen receptor positive (HCC)- Primary Encounter for screening for osteoporosis Special screening for osteoporosis Hypercalcemia Hypercalcemia documented in this encounter [facility]* Diagnosis Malignant neoplasm of upper-outer quadrant of left breast in female, estrogen receptor positive (HCC) documented in this encounter [facility]* Diagnosis Hypercalcemia- Primary Other specified menopausal and perimenopausal disorders Malignant neoplasm of upper-outer quadrant of left breast in female, estrogen receptor positive (HCC) documented in this encounter [facility]* Diagnosis Malignant neoplasm of upper-outer quadrant of left breast in female, estrogen receptor positive (HCC)- Primary Hypercalcemia Malignant neoplasm of breast in female, estrogen receptor positive, unspecified laterality, unspecified site of breast (HCC) Stage 3 chronic kidney disease, unspecified whether stage 3a or 3b CKD (HCC) documented in this encounter [facility]* Diagnosis Malignant neoplasm of upper-outer quadrant of left breast in female, estrogen receptor positive (HCC) documented in this encounter [facility]* Diagnosis Hypercalcemia- Primary Malignant neoplasm of upper-outer quadrant of left breast in female, estrogen receptor positive (HCC) Stage 3 chronic kidney disease, unspecified whether stage 3a or 3b CKD (HCC) documented in this encounter [facility] CenterEvaluchristianacare noteNo InformationNopike county memorial hospital [employer] Other Evaluation note* Diagnosis Age-related nuclear cataract of left eye- Primary Primary open angle glaucoma (POAG) of both eyes, mild stage (CMS/HCC) documented in this encounter [facility] note* Diagnosis Onset Date Resolution Status Anemia of renal disease acut e CKD (chronic kidney disease) stage 4, GFR 15-29 ml/min acute Hyperlipidemia acute [id number] acute Secondary hyperparathyroidism acute Type 2 diabetes mellitus wit h diabetic chronic kidney disease [facility] Work Phone: Evaluation note* Diagnosis Onset Date Resolution Status Anemia of renal disease acut e CKD (chronic kidney disease) stage 4, GFR 15-29 ml/min acute Hyperlipidemia acute [id number] acute Secondary hyperparathyroidism acute Type 2 diabetes mellitus wit h diabetic chronic kidney disease acute Anemia of renal disease acut e CKD (chronic kidney disease) stage 4, GFR 15-29 ml/min acute Hypercalcemia acute Hyperlipidemia acute [id number] acute Proteinuria acute Type 2 diabetes mellitus wit h diabetic chronic kidney disease [facility] Work Phone: Evaluation note* Diagnosis 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 Monoclonal paraproteinemia Hypercalcemia Stage 3 chronic kidney disease, unspecified whether stage 3a or 3b CKD (HCC) Malignant neoplasm of upper-outer quadrant of left breast in female, estrogen receptor positive (HCC) documented in this encounter [facility]Eval[facility] note* Diagnosis Abnormal kidney function- Primary Unspecified disorder of kidney and ureter documented in this encounter [facility]Eval[facility] note* Diagnosis Abnormal gastrointestinal PET scan- Primary Nonspecific abnormal results of other specified function study Gastritis, presence of bleeding unspecified, unspecified chronicity, unspecified gastritis type documented in this encounter [facility] noteNo assessment information [facility] Work Phone: Evaluation note* Diagnosis Multiple myeloma not having achieved remission (HCC) Multiple myeloma, without mention of having achieved remission documented in this encounter [facility] physical note Author Amanda Ly [facility] May 26, 2024 10:20am Note Date/Time May 26, 2024 10:20am [facility] [address] [place] [address] Gastroenterology H&P Signed Patient: Andrew Barros MR#: [id number] : 1945 Acct:[id number] Age/Sex: 78 / F Adm Date: 4 Loc: Room: Type: [facility] Attending Dr: Amanda Contreras DO Copies to: DO Eduardo Ray MD~ Date of Service: 05/26/2024 HISTORY & PHYSICAL: Patient's history with special attention to the cardiovascular, pulmonary systems and the current problem was reviewed with the patient immediately prior to the procedure. Present medications and doses reviewed in the EMR. Allergies and pertinent laboratory tests were also reviewedat this time in the EMR. The physical examination, as below, was then performed. Indication, assessment and HPI: 78-year-old female who presents for EGD for abnormal PET scan which revealed focal uptake of the distal gastric body. Family history of GI malignancy? No PHYSICAL EXAMINATION General appearance: cooperative, NAD Skin: No jaundice, no rash or lesions Head: NCAT Eyes: Anicteric Neck: Supple Lungs: Normal respiratory effort, no use of accessory muscles Abdomen: Soft, nondistended Neuro: No focal deficits, Ox3. REVIEW OF SYSTEMS Constitutional: Denies malaise, fevers Cardiovascular: Denies chest pain, palpitations Respiratory: Denies shortness of breath, wheezing Gastrointestinal: As per HPI Genitourinary: Denies dysuria, polyuria Musculoskeletal: Denies joint swelling, joint stiffness Neurological: Denies confusion, numbness, tingling Endocrine: Denies fatigue Written informed consent obtained from the patient. Risks (including but not limited to perforation, infection, bloating, bleeding, need for emergent surgeryand loss of life), benefits and alternatives explained and questions answered. The patient verbalized understanding. Based on history patient is an appropriate candidate for the procedure. Amanda Contreras DO Documented By: Amanda Contreras DO 05/26/24 1020 Signed By: <Electronically signed by Amanda Contreras DO> 05/26/24 1020 [facility] Work Phone: History general Narrative - Reported* Type Description Date Medical History hypertension Medical History heart disease Medical History Esophageal reflux Medical History diabetes mallitus Medical History cancer Surgical History breast cancer Hospitalization History See [facility] [employer] Other Hospital Discharge instructions Additional Instructions DISCHARGE INSTRUCTIONS FOR UPPER ENDOSCOPY WHAT TO EXPECT: - You may feel full, gassy or cramping after your procedure. In some cases, this may be from a few hours to a day. Walking may help relieve the discomfort. - Your throat may feel sore today from the scope that the doctor passed through your throat to visualize your stomach. Take a throat lozenge or suck on ice to ease the discomfort. - You may notice some streaks of blood in your sputum if the doctor has taken a biopsy. - You should begin to recover from anesthesia within 1 hour of the procedure, however may feel groggy for the next 24 hours. DO's AND DON'Ts: - Call your doctor right away if you have a hard abdomen, severe pain, vomiting or if you cough up large amounts of blood. - Call your doctor if you develop any rashes, hives or difficulty breathing. - If you take 81 mg aspirin for your heart it is safe to resume this medication. - If you take other blood thinner medications your doctor will instruct you when these can safely be resumed. - Do NOT drive for 24 hours. - Do NOT operate machinery such as power tools, lawn mowers, snow blowers, sewing machines, etc. for 24 hours. - Avoid alcoholic beverages and drugs for allergies, nerves, or sleep. - Do NOT stay alone. Do NOT leave your child unattended. - Do NOT make important personal or business decisions or sign any legal documents. - Eat solid foods and drink liquids in smaller amounts than usual until normal appetite returns. If you should experience an upset stomach, liquids high in sugar content (soda, Dakota-Aid, non-acid juices) are recommended. - Do NOT smoke. - Do take it easy today. You need not stay in bed, but avoid strenuous activities such as jogging or working out. FOLLOW UP & RECOMMENDATIONS: -Please call the office and make a follow up appointment to see me as needed -Notify the doctor if you have any problems. -Follow up with PCP. -Office number [phone]. [facility] Work Phone: [facility] for referral (narrative)* Diagnostic Procedure Only (Routine) - Pending Review Specialty Diagnoses / Procedures Referred By Compa hampton Referred To Contact MOLECULAR & FUNCTIONAL IMAGING Diagnoses Malignant neoplasm of breast in female, estrogen receptor positive, unspecified laterality, unspecified site of breast (HCC) Procedures NM BONE WHOLE BODY BONE &/JOINT IMAGING WHOLE BODY Sandeep Lenz MD [address] [place] [address] [address] [place] [address] [facility] [address] [place] [address] Referral ID Status Reason Start Date Expiration Date Visits Requested Visits Authorized [id number] Pending Review Auto-Generat ed Referral 04/29/2023 05/28/2024 1 1 [facility] for referral (narrative)* Diagnostic Procedure Only (Routine) - Pending Review Specialty Diagnoses / Procedures Referred By Compa hampton Referred To Contact BR IMAGING Diagnoses Malignant neoplasm of upper-outer quadrant of left breast in female, estrogen receptor positive (HCC) Breast screening Encounter for screening mammogram for malignant neoplasm of breast Procedures SHANNEN SCREENING SCREENING MAMMOGRAPHY BI 2-VIEW BREAST INC CAD Sandeep Lenz MD [address] [place] [address] [address] [place] [address] [facility] [address] [place] [address] Referral ID Status Reason Start Date Expiration Date Visits Requested Visits Authorized [id number] Pending Review Auto-Generat ed Referral 10/27/2024 12/24/2024 1 1 [facility] for referral (narrative)* Outpatient Procedure (Routine) - New Request Specialty Diagnoses / Procedures Referred By Compa hampton Referred To Contact [facility] Diagnoses Abnormal gastrointestinal PET scan Gastritis, presence of bleeding unspecified, unspecified chronicity, unspecified gastritis type Procedures EGD DIAGNOSTIC ESOPHAGOGASTRODUODENOSCOPY TRANSORAL DIAGNOSTIC Re Ballesteros Jr., DO [address] [place] [address] [facility] [address] [place] [address] Referral ID Status Reason Start Date Expiration Date Visits Requested Visits Authorized [id number] New Request Auto-Generat ed Referral 04/03/2024 04/03/2025 1 [facility] Diagnostic Procedure Only (Routine) - Closed Specialty Diagnoses / Procedures Referred By Contac t Referred To Contact MOLECULAR & FUNCTIONAL IMAGING Diagnoses Multiple myeloma not having achieved remission (HCC) Procedures NM PET/CT WHOLE BODY INITIAL PET IMAGING FOR CT ATTENUATION WHOLE BODY Sandeep Lenz MD [address] [place] [address] [place] [address] [facility] [address] [place] [address] Referral ID Status Reason Start Date Expiration Date V isits Requested Visits Authorized [id number] Closed Auto-Generate d Referral 03/06/2024 04/05/2025 1 1 [facility] Summary Purpose Family History No Family History Records Found Relationship Condition Age at Onset Recorded Date/T sampson Not Specified Type 2 diabetes mellitus Unknown father Myocardial infarction Unknown Relationship Condition Age at Onset Recorded Date/T sampson mother Type 2 diabetes mellitus Unknown father Myocardial infarction Unknown son Malignant neoplasm of skin Unknown Advance Directives No Advanced Directives Records Found Advance Directive Response Recorded Date/ Time Advance Directives No August 1:25am Chief Complaint and Reason for Visit Chief Complaint Subarachnoid Hemorrh age [id number] i61.0 Reason for Visit Atrial fibrillation Diabetes Hypertension Intracerebral hemorrhage Nontraumatic intracerebral hemorrhage Chief Complaint RENAL CKD 4 Reason for Visit Anemia of renal dise ase CKD (chronic kidney disease) stage 4, GFR 15-29 ml/min Hyperlipidemia [id number] Secondary hyperparathyroidism Type 2 diabetes mellitus with diabetic chronic kidney disease Chief Complaint RENAL CKD 4 RENAL F/U / LAB REVIEW Reason for Visit Anemia of renal dise ase CKD (chronic kidney disease) stage 4, GFR 15-29 ml/min Hyperlipidemia [id number] Secondary hyperparathyroidism Type 2 diabetes mellitus with diabetic chronic kidney disease Anemia of renal disease CKD (chronic kidney disease) stage 4, GFR 15-29 ml/min Hypercalcemia Hyperlipidemia [id number] Proteinuria Type 2 diabetes mellitus with diabetic chronic kidney disease Chief Complaint abnormal findings on PET CT abnormal findings on PET CT Medications Administered Section Inactive Administered Medications - [...] 04/30/2023 2:46 PM EDT 650 mg zoledronic vz-vbutoubj-9.9NaCl 4 mg iv piggyback 100 mL (ZOMETA) 4 mg, INTRAVENOUS, Administer over 15 Minutes, ONCE, 1 dose, On Sat04/30/23 at 1500, Hazardous Potential Reproductive Risk Drug: Use appropriate PPE. New Bag/Syringe/Bottle 04/30/2023 3:10 PM EDT 4 mg Reason for Referral Specialty Diagnoses / Procedures Referred By Compa hampton Referred To Contact Gastroenterology Diagnoses Abnormal finding on GI tract imaging Procedures CONSULT TO GASTROENTEROLOGY OFFICE/OUTPATIENT [facility] MDM 60 MINUTES Sandeep Lenz MD [facility] [place] [address] Referral ID Status Reason Start Date Expiration Date Visits Requested Visits Authorized [id number] Authorized PCP Requested Referral 03/26/2024 03/26/2025 1 1 Specialty Diagnoses / Procedures Referred By Compa hampton Referred To Contact Nephrology Diagnoses Hypercalcemia Stage 3 chronic kidney disease, unspecified whether stage 3a or 3b CKD (HCC) Procedures CONSULT TO KIDNEY MEDICINE OFFICE/OUTPATIENT [facility] MDM 60-74 MINUTES Sandeep Lenz MD [address] [place] [place] [address] Referral ID Status Reason Start Date Expiration Date Visits Requested Visits Authorized [id number] Authorized PCP Requested Referral 05/20/2023 05/19/2024 1 1 Additional Source Comments INFORMATION SOURCE (unrecogn ized section and content) DATE CREATED AUTHOR 01/18/2021 Guilherme Siddiqi [facility] DATE CREATED AUTHOR AUTHOR'S ORGANIZ ATION 05/15/2022 [facility] DATE CREATED AUTHOR AUTHOR'S ORGANIZ ATION 05/22/2022 [facility] DATE CREATED AUTHOR AUTHOR'S ORGANIZ ATION 09/24/2022 [facility] DATE CREATED AUTHOR AUTHOR'S ORGANIZ ATION 11/01/2023 [facility] EPIC DATE CREATED AUTHOR AUTHOR'S ORGANIZ ATION 02/20/2024 [facility] DATE CREATED AUTHOR AUTHOR'S ORGANIZ ATION 04/09/2024 [facility] DATE CREATED AUTHOR AUTHOR'S ORGANIZ ATION 06/12/2024 [facility] DATE CREATED AUTHOR AUTHOR'S ORGANIZ ATION 06/22/2024 [facility] Care Teams (unrecognized sec tion and content) Team Status: Active Member Role Status Dates Eduardo Sharpe MD Primary Care Provider Active Team Status: Inactive Member Role Status Dates Eduardo Sharpe MD Primary Care Provider Active Start: January 20, 2024 End: January 20, 2024 Vince Rojo MD Attending Provider Active Start : January 20, 2024 End: January 20, 2024 Team Status: Inactive Member Role Status Dates Eduardo Sharpe MD Primary Care Provider Active Shaka Echavarria MD Admit Provider, Attending Provider A ctive Brayden Hernandez MD Other Provider Active Team Status: Inactive Member Role Status Dates Eduardo Sharpe MD Primary Care Provider Active Brayden Hernandez MD Attending Provider Active [employer] Relationship Specialty Start Date End Date Eduardo Sharpe MD [address] [place] [address] PCP - General Family Practice 05/30/18 [employer] Relationship Specialty Start Date End Date Eduardo Sharpe MD [address] [place] [address] PCP - General Family Practice 05/30/18 [employer] Relationship Specialty Start Date End Date Eduardo Sharpe MD [address] [place] [address] PCP - General Family Medicine 05/30/18 [employer] Relationship Specialty Start Date End Date Eduardo Sharpe MD [address] [place] [id number] PCP - General Family Medicine 05/30/18 [employer] Relationship Specialty Start Date End Date Eduardo Sharpe MD PCP - General Family Medicine 05/30/18 [employer] Relationship Specialty Start Date End Date Eduardo Sharpe MD PCP - General Family Medicine 05/30/18 [employer] Relationship Specialty Start Date End Date Eduardo Sharpe MD PCP - General Family Medicine 05/30/18 [employer] Relationship Specialty Start Date End Date Eduardo Sharpe MD PCP - General Family Medicine 05/30/18 [employer] Relationship Specialty Start Date End Date Eduardo Sharpe MD PCP - General Family Medicine 05/30/18 [employer] Relationship Specialty Start Date End Date Eduardo Sharpe MD PCP - General Family Medicine 05/30/18 [employer] Relationship Specialty Start Date End Date Eduardo Sharpe MD PCP - General Family Medicine 05/30/18 [employer] Relationship Specialty Start Date End Date Eduardo Sharpe MD PCP - General Family Medicine 05/30/18 [employer] Relationship Specialty Start Date End Date Eduardo Sharpe MD PCP - General Family Medicine 05/30/18 [employer] Relationship Specialty Start Date End Date Eduardo Sharpe MD PCP - General Family Medicine 05/30/18 Team Status: Active Member Role Status Dates Eduardo Sharpe MD Primary Care Provider Active Start: February 03, 2024 Vince Rojo MD Attending Provider Active Start : February 03, 2024 Team Status: Inactive Member Role Status Dates Eduardo Sharpe MD Primary Care Provider Active Start: February 10, 2024 End: February 10, 2024 Vince Rojo MD Attending Provider Active Start : February 10, 2024 End: February 10, 2024 [employer] Relationship Specialty Start Date End Date Eduardo Sharpe MD PCP - General Family Medicine 05/30/18 [employer] Relationship Specialty Start Date End Date Eduardo Sharpe MD PCP - General Family Medicine 05/30/18 [employer] Relationship Specialty Start Date End Date Eduardo Sharpe MD PCP - General Family Medicine 05/30/18 [employer] Relationship Specialty Start Date End Date Eduardo Sharpe MD PCP - General Family Medicine 05/30/18 [employer] Relationship Specialty Start Date End Date Eduardo Sharpe MD PCP - General Family Medicine 05/30/18 [employer] Relationship Specialty Start Date End Date Eduardo Sharpe MD PCP - General Family Medicine 05/30/18 Team Status: Inactive Member Role Status Dates Eduardo Sharpe MD Primary Care Provider Active Start: May 26, 2024 End: May 26, 2024 Amanda Contreras DO Attending Provider Active St art: May 26, 2024 End: May 26, 2024 Team Status: Active Member Role Status Dates Eduardo Sharpe MD Primary Care Provider Active Start: May 26, 2024 Amanda Contreras DO Attending Provider, Other Provider Active Start: May 26, 2024 Source Comments (unrecognize d section and content) In the event this informatio n is protected by the Federal Confidentiality of Alcohol and Drug Abuse Patient Records regulations: The Federal rules restrict any use of the information to criminally investigate or prosecute any alcohol or drug abuse patient.[facility] the event this information is protected by the Federal Confidentiality of Alcohol and Drug Abuse Patient Records regulations: The Federal rules restrict any use of the information to criminally investigate or prosecute any alcohol or drug abuse patient.[facility] the event this information is protected by the Federal Confidentiality of Alcohol and Drug Abuse Patient Records regulations: The Federal rules restrict any use of the information to criminally investigate or prosecute any alcohol or drug abuse patient.[facility] the event this information is protected by the Federal Confidentiality of Alcohol and Drug Abuse Patient Records regulations: The Federal rules restrict any use of the information to criminally investigate or prosecute any alcohol or drug abuse patient.[facility] the event this information is protected by the Federal Confidentiality of Alcohol and Drug Abuse Patient Records regulations: The Federal rules restrict any use of the information to criminally investigate or prosecute any alcohol or drug abuse patient.[facility] the event this information is protected by the Federal Confidentiality of Alcohol and Drug Abuse Patient Records regulations: The Federal rules restrict any use of the information to criminally investigate or prosecute any alcohol or drug abuse patient.[facility] the event this information is protected by the Federal Confidentiality of Alcohol and Drug Abuse Patient Records regulations: The Federal rules restrict any use of the information to criminally investigate or prosecute any alcohol or drug abuse patient.[facility] the event this information is protected by the Federal Confidentiality of Alcohol and Drug Abuse Patient Records regulations: The Federal rules restrict any use of the information to criminally investigate or prosecute any alcohol or drug abuse patient.[facility] the event this information is protected by the Federal Confidentiality of Alcohol and Drug Abuse Patient Records regulations: The Federal rules restrict any use of the information to criminally investigate or prosecute any alcohol or drug abuse patient.[facility] the event this information is protected by the Federal Confidentiality of Alcohol and Drug Abuse Patient Records regulations: The Federal rules restrict any use of the information to criminally investigate or prosecute any alcohol or drug abuse patient.[facility] the event this information is protected by the Federal Confidentiality of Alcohol and Drug Abuse Patient Records regulations: The Federal rules restrict any use of the information to criminally investigate or prosecute any alcohol or drug abuse patient.[facility] the event this information is protected by the Federal Confidentiality of Alcohol and Drug Abuse Patient Records regulations: The Federal rules restrict any use of the information to criminally investigate or prosecute any alcohol or drug abuse patient.[facility] the event this information is protected by the Federal Confidentiality of Alcohol and Drug Abuse Patient Records regulations: The Federal rules restrict any use of the information to criminally investigate or prosecute any alcohol or drug abuse patient.[facility] the event this information is protected by the Federal Confidentiality of Alcohol and Drug Abuse Patient Records regulations: The Federal rules restrict any use of the information to criminally investigate or prosecute any alcohol or drug abuse patient.[facility] Center[facility] the event this information is protected by the Federal Confidentiality of Alcohol and Drug Abuse Patient Records regulations: The Federal rules restrict any use of the information to criminally investigate or prosecute any alcohol or drug abuse patient.[facility] Center[facility] the event this information is protected by the Federal Confidentiality of Alcohol and Drug Abuse Patient Records regulations: The Federal rules restrict any use of the information to criminally investigate or prosecute any alcohol or drug abuse patient.[facility] Center[facility] the event this information is protected by the Federal Confidentiality of Alcohol and Drug Abuse Patient Records regulations: The Federal rules restrict any use of the information to criminally investigate or prosecute any alcohol or drug abuse patient.[facility] Center[facility] the event this information is protected by the Federal Confidentiality of Alcohol and Drug Abuse Patient Records regulations: The Federal rules restrict any use of the information to criminally investigate or prosecute any alcohol or drug abuse patient.[facility] ClinicIn the event this information is protected by the Federal Confidentiality of Alcohol and Drug Abuse Patient Records regulations: The Federal rules restrict any use of the information to criminally investigate or prosecute any alcohol or drug abuse patient.[facility] Center[facility] the event this information is protected by the Federal Confidentiality of Alcohol and Drug Abuse Patient Records regulations: The Federal rules restrict any use of the information to criminally investigate or prosecute any alcohol or drug abuse patient.[facility] CenterIn the event this information is protected by the Federal Confidentiality of Alcohol and Drug Abuse Patient Records regulations: The Federal rules restrict any use of the information to criminally investigate or prosecute any alcohol or drug abuse patient.[facility] CenterIn the event this information is protected by the Federal Confidentiality of Alcohol and Drug Abuse Patient Records regulations: The Federal rules restrict any use of the information to criminally investigate or prosecute any alcohol or drug abuse patient.[facility] Center[facility] the event this information is protected by the Federal Confidentiality of Alcohol and Drug Abuse Patient Records regulations: The Federal rules restrict any use of the information to criminally investigate or prosecute any alcohol or drug abuse patient.[facility] CenterIn the event this information is protected by the Federal Confidentiality of Alcohol and Drug Abuse Patient Records regulations: The Federal rules restrict any use of the information to criminally investigate or prosecute any alcohol or drug abuse patient.[facility] CenterIn the event this information is protected by the Federal Confidentiality of Alcohol and Drug Abuse Patient Records regulations: The Federal rules restrict any use of the information to criminally investigate or prosecute any alcohol or drug abuse patient.[facility] Reason for Visit (unrecogniz ed [...] perimenopausal disorders Hypercalcemia Sandeep Lenz MD [address] [place] [address] [address] [place] [address] [employer] Treat Marcos [address] [place] [address] Referral ID Status Reason Start Date Expiration Date V isits Requested Visits Authorized [id number] Authorized 04/29/2023 07/28/2023 99 99 Reason Comments Breast Cancer 1 year follow up Reason Comments Results Reason Comments Breast Cancer Followup Reason Comments Referral Information Nephrology Reason Comments Cataract Reason Comments Breast Cancer Follow up Reason Comments Patient Update Appointment Reason Comments Established Patient Reason Comments Renal biopsy Reason Comments Results repeat CBC for H/H Reason Comments Appointment Confirmation Reason Comments Schedule Surgery Reason Comments Radiology NM Specialty Diagnoses / Procedures Referred By Contac t Referred To Contact MOLECULAR & FUNCTIONAL IMAGING Diagnoses Multiple myeloma not having achieved remission (HCC) Procedures NM PET/CT WHOLE BODY INITIAL PET IMAGING FOR CT ATTENUATION WHOLE BODY Sandeep Lenz MD [address] [place] [address] [address] [place], [place] [address] Molecular & Functional Imaging [address] [place] [address] Referral ID Status Reason Start Date Expiration Date V isits Requested Visits Authorized [id number] Closed Auto-Generate d Referral 03/06/2024 04/05/2025 1 1 Goals (unrecognized section and content) Goals may be documented in a n alternate section FOR RECORDS PERTAINING TO PATIENTS WHO ARE [...] BE BASED ON THE PRIMARY CLINICAL RECORDS. [employer] provides no warranty or guarantee of the accuracy or completeness of information in this document.
[2024-07-14 09:48] LABS: Alanine Aminotransferase 19 U/L (14-59); Albumin Globulin Ratio 0.8; Albumin Level 3.3 g/dL (3.4-5.0); Alkaline Phosphatase 93 U/L (46-116); Anion Gap 15.8; Aspartate Amino Transferase 19 U/L (15-37); BUN Creatinine Ratio 20.5; Bilirubin Total 0.6 mg/dL (0.2-1.0); Carbon Dioxide 27.5 mmol/L (21.0-32.0); Chloride 102 mmol/L (98-107); Estimated GFR (African America 35 (>=60 mL/min/1.73m^2); Estimated GFR (Non-African Ame 29 (>=60 mL/min/1.73m^2); Glucose 142 mg/dL (74-106); Potassium 4.3 mmol/L (3.5-5.1); Sodium 141 mmol/L (136-145); Total Protein 7.3 g/dL (6.4-8.2)
== END 2024-07-14 08:51 | disposition home or self-care (01) ==
LOC: LAB 09:01
PROVIDERS: PCP Family Medicine; Visit Provider Family Medicine
DX: R53.1 Weakness (principal); N18.4 Chronic kidney disease, stage 4 (severe)
CPT/HCPCS: 36415; 80053

== ENCOUNTER 2024-07-17 08:27 | Outpatient (OUT) | payer MEDICARE, OTHER, SELFPAY ==
--- OUTSIDE RECORDS SUMMARY | 2024-07-17 08:52 | XMS_ITS | CCD ---
Author Organization [facility] Care Team Providers Care Maintenance Craftsman Name Role Phone MD Eduardo Sharpe Primary Care Provider [phone] MD Jericho Shaka Admit Provider MD Jericho Shaka Attending Provider [phone] MD Brayden Hernandez Other Provider MD Brayden Hernandez Attending Provider Eduardo Sharpe MD Primary Care Provider [phone] Brayden Hernandez Unavailable EDUARDO SHARPE Primary Care Unavailable EDUARDO SHARPE Referring Unavailable MARIA G HALER Camille Admitting Unavailable GANESH HALE Attending Unavailable Unavailable Primary Care Provider Unavailcharles e PROVIDER, UNKNOWN Attending Unavailable PROVIDER, UNKNOWN Admitting Unavailable Eduardo Sharpe MD Primary Care Provider [phone] MIKALA HIGGINS Admitting Unavailable MIKALA HIGGINS Attending [...] Care Unavailable DR EDUARDO SHARPE Attending Unavailable DR EDUARDO SHARPE Consulting Unavailable DR EDUARDO SHARPE Admitting Unavailable RE MERCEDES Consulting Unavailable TIBURCIO [...] Unavailable BALBIR, DR KATLYN Aragon Consulting Unavailable KATHI HARPER Consulting Unavailable RE MENDOZA Consulting Unavailable JAZMÍN MACHADO Consulting Unavailable ABHYANKAR, SANDEEP Admitting Unavailable ABHYANKAR, SANDEEP Attending Unavailable BALBIR, DR KATLYN Aragon Consulting Unavailable HOY, DR [...] DELEON Consulting Unavailable ANGÉLICA BAILEY Consulting Unavailable DELL, DR CLARK Primary Care Unavailable FAWWAD, PARKS H Attending Unavailable FAWABY PARKS H Admitting Unavailable DELL, DR CLARK Primary Care Unavailable MOUKAPRAVEEN, DR BORRERO Consulting Unavailable ELIASUKAPRAVEEN, DR BORRERO Admitting Unavailable MORAIMUNDO, DR BORRERO Attending Unavailable Eduardo Sharpe MD Primary Care Provider [phone] Bala Hartman Unavailable MARK ISABEL Attending Unavailable TRINA HAIDER Referring Unavailable Unavailable Primary Care Provider UnavailEduardo Yin MD Primary Care Provider [phone] GISSELL HARPER Attending Unavailable GISSELL HARPER Attending Unavailable GISSELL HARPER Attending Unavailable MD Eduardo Sharpe Primary Care Provider [phone] DO Amanda Contreras Attending Provider EDUARDO SHARPE M Primary Care Unavailable HOY, [...] Unavailable HOY, EDUARDO M Primary Care Unavailable BRO LENZEK Referring Unavailable HOY, EDUARDO M Primary Care [...] Date of Onset Reaction(s) Facility (2 sources) Goyywcx-QDV-EdT Reductase Inhibitor; Translations: [Zjuszyc-XMK-NoC Reductase Inhibitor] Propensity to adverse reactions 0 [facility] (5 sources) HMG-CoA reductase inhibitor; Translations: [QQEBNMR-DYH-VMR REDUCTASE INHIBITORS] Drug Allergy 8 Unknown [facility] (1 source) black walnut pollen extract Drug Allergy 8 [facility] (20 sources) HMG-CoA reductase inhibitor Drug Allergy 8 Unknown [facility] (2 sources) Simvastatin Drug Allergy [facility] Medications Current Medications Medication Drug [...] 5 mg by mouth t wice daily. aspirin 81 mg delayed release oral tablet (20 sources) Platelet Aggregation Inhibitor, Nonsteroidal Anti-inflammatory Drug Start: 01-20-2024 take 1 tablet by mouth once [...] oral tablet (19 sources) Vitamin D Start: take 1 tablet [...] Takes 1 1/2 tablet 2x a day cholecalciferol 0.05 mg oral capsule (1 source) Vitamin D Start: 07-16-20 take 50 ug by mouth once daily Cholecalciferol (Vitamin D3) Active 50 MCG PO Daily July 16, 2024 12:00am doxazosin 2 mg oral tablet (20 sources) alpha-Adrenergic Isabel Start: 07-16-20 take 2 mg by mouth once daily in the morning Doxazosin Active 2 MG PO Every morning July 16, 2024 12:00am Start: 04-01-2023 End: 03-31-2024 take 4 mg by mouth at bedtime Doxazosin Active 4 MG PO Bedtime January 20, 2024 12:00am Comment on above: Take 4 mg by [...] oral tablet (20 sources) Loop Diuretic Start: 07-16-2024 Furosemide (Lasix) 20 mg tablet Active 20 MG PO Every 48 hours July 16, 2024 12:00am Start: 01-20-2024 Furosemide Act bello 40 MG PO Every 48 hours January [...] tablet (20 sources) Biguanide Start: 11-11-19 take 500 mg by mouth twice daily Metformin Active 500 MG PO Twice daily November 11, 2021 1:57pm Start: 11-09-2021 End: 11-11-2021 take 500 mg [...] Comment on above: Take 1 capsule by mo [facility] once daily. Multivitamin preparation (5 sources) Start: 09-10-2020 take 1 tablet by [...] capsule (20 sources) Proton Pump Inhibitor Start: 09-10-2020 End: 09-15-2020 take 1 capsule by mouth once daily omeprazole (PRILOSEC) 40 mg capsule Take 40 mg by mouth once daily. 04/08/2021 Active Comment on above: Take 40 mg by mouth once daily. potassium chloride 10 meq extended release oral tablet (20 sources) Start: 09-22-2020 take 10 mEq by mouth once daily Potassium Chloride Active 10 MEQ PO Daily September 22, 2020 1:00am See your primary care provider or cardiology for refills Comment on above: Potassium Chloride A ctive 10 MEQ PO Daily September 22, 2020 12:10pm See your primary care provider or cardiology for refills 12 hr propafenone hydrochloride 325 mg extended release oral capsule (20 sources) Antiarrhythmic Start: 12-07-2022 take 1 capsule by mouth every twelve hours propafenone SR (Rythmol SR) 325 MG 12 hr capsule Take 1 capsule by mouth every 12 (twelve) hours 0 12/07/2022 Active Start: 11-09-2021 take 325 mg by mouth twice daily Propafenone Active 325 MG PO Twice daily November 09, 2021 1:00am Start: 04-12-2021 take 1 capsule by mo ut every twelve hours, then take 1 capsule [...] Sig (Original) acetaminophen 325 mg oral capsule (5 sources) Start: 09-10-2020 End: 11-09-2021 take 2 capsules by mouth every four hours Acetaminophen (Tylenol) 325 mg Capsule Discontinued 650 MG PO Q4H September 10, 2020 1:00am November 09, 2021 7:27pm [id number] 200 actuat albuterol 0.09 mg/actuat metered dose inhaler (10 sources) beta2-Adrenergic Agonist Start: 09-15-2020 End: 11-09-2021 [...] 2 puffs alogliptin 25 mg oral tablet (5 sources) Start: 09-10-2020 End: 09-10-2020 take 25 mg by mouth once daily Alogliptin Discontinued 25 MG PO Daily September 10, 2020 1:00am September 10, 2020 2:18am aluminum hydroxide 40 mg/ml / magnesium hydroxide 40 mg/ml / simethicone 4 mg/ml oral suspension (5 sources) Start: 09-10-2020 End: 09-19-2020 take 1 mL by mouth every four hours Alum-Mag Hydroxide-Simeth Discontinued 30 ML PO Q4H September 10, 2020 1:00am September 19, 2020 1:20pm amoxicillin 875 mg / clavulanate 125 mg oral tablet (10 sources) Penicillin-class Antibacterial Start: 09-10-2020 End: 09-22-2020 take 1 tablet by mouth every twelve hours Amoxicillin-Pot Clavulanate (Augmentin) 875-125 mg Tablet Discontinued 1 TAB PO Q12H 10 September 15, 2020 12:42pm September 22, 2020 1:11pm Stop date 09/20/20 anastrozole 1 mg oral tablet (20 sources) Aromatase Inhibitor Start: 09-10-2020 End: 01-20-2024 take 1 mg by mouth once daily Anastrozole Discontinued 1 MG PO Daily September 15, 2020 5:27pm January 20, 2024 3:28pm Comment on above: TAKE 1 TABLET BY MENA TH EVERY DAY bimatoprost 0.1 mg/ml ophthalmic solution (20 sources) [...] as directed. bisacodyl 10 mg rectal suppository (5 sources) Stimulant Laxative Start: 2019 End: 2019 Bisacodyl (Dulcolax (Bisacodyl)) 10 mg Suppository Discontinued 10 MG WI Daily September 10, 2020 1:00am September 19, 2020 1:20pm cetirizine hydrochloride 10 mg oral tablet (5 sources) Histamine-1 Receptor Antagonist Start: 2019 End: 2019 take 10 mg by mouth once daily Cetirizine Discontinued 10 MG PO Daily September 10, 2020 1:00am September 22, 2020 1:11pm dexamethasone 6 mg oral tablet (5 sources) Corticosteroid Start: 2019 End: 2019 take 6 mg by mouth once daily Dexamethasone Discontinued 6 MG PO Daily 5 September 15, 2020 1:00am September 22, 2020 1:11pm end 09/20 dextromethorphan hydrobromide 1 mg/ml / guaiFENesin 20 mg/ml oral solution (5 sources) Uncompetitive R-iskpdl-P-aspartate Receptor Antagonist, Sigma-1 Agonist Start: 2019 End: 2019 take 1 mL by mouth every six hours Dextromethorphan-Gua ifenesin (Robitussin Cough-Chest Shadi Dm) 5-100 mg/5 mL Liquid Discontinued 10 ML PO Every 6 hours September 10, 2020 1:00am September 15, 2020 12:43pm dilTIAZem hydrochloride 60 mg oral tablet (5 sources) Calcium Channel Isabel Start: 2019 End: 2019 Diltiazem Hcl Discontinued TABLET September 10, 2020 1:00am September 10, 2020 2:22am ergocalciferol 1.25 mg oral capsule (10 sources) Provitamin D2 Compound Start: 2019 End: 2023 take 1250 ug by mouth every week Ergocalciferol (Vitamin D2) Discontinued 1250 MCG PO every week September 15, 2020 5:27pm January 20, 2024 3:29pm Takes every Saturday flecainide acetate 100 mg oral tablet (5 sources) Antiarrhythmic Start: 2019 End: 2019 take 100 mg by mouth every twelve hours Flecainide Discontinued 100 MG PO Q12H September 10, 2020 1:00am September 15, 2020 12:43pm 120 actuat fluticasone propionate 0.044 mg/actuat metered dose inhaler (10 sources) Corticosteroid Start: 2019 End: 2021 take 1 puff(s) by inhalation twice daily Fluticasone Propionate Discontinued 2 PUFF INHALATION Twice daily 10.6 September 15, 2020 5:27pm November 09, 2021 7:27pm hydrALAZINE hydrochloride 100 mg oral tablet (5 sources) Arteriolar Vasodilator Start: 2019 End: 2019 Hydralazine Discontinued TABLET September 10, 2020 1:00am September 10, 2020 2:21am hyoscyamine sulfate 0.125 mg oral tablet (5 sources) Start: 2019 End: 2019 take 1 tablet by mouth four times daily Hyoscyamine Sulfate (Levsin) 0.125 mg Tablet Discontinued 0.125 MG PO Four times daily September 10, 2020 1:00am September 15, 2020 12:43pm Insulin Aspart U-100 (Novolog Flexpen U-100 Insulin) 100 unit/mL (3 mL) Insulin Pen (10 sources) Start: 2019 End: 2019 Insulin Aspart [...] 2020 1:00am September 15, 2020 5:21pm irbesartan (5 sources) Angiotensin 2 Receptor Isabel Start: 09-10-2020 End: 09-10-2020 Irbesartan Discontinued MG TABLET September 10, 2020 2:05am September 10, 2020 2:21am Start: 09-10-2020 End: 09-10-2020 Irbesartan Discontinued MG T ABLET September 10, 2020 1:00am September 10, 2020 2:21am lactobacillus acidophilus [id number] unt / pectin 10 mg oral capsule (5 sources) Start: 09-10-2020 End: 09-19-2020 take 1 capsule by mouth four times daily Acidophilus-Pectin, [place] (Acidophilus Probiotic) 100 million cell-10 mg Capsule Discontinued 1 CAP PO Four times daily September 10, 2020 1:00am September 19, 2020 1:20pm Stop date 09/10/20 Magnesium Hydroxide (5 sources) Start: 09-10-2020 End: 09-19-2020 take 1 [...] 2020 1:20pm nitroglycerin 0.4 mg sublingual tablet (5 sources) Nitrate Vasodilator Start: 09-10-2020 End: 11-09-2021 Nitroglycerin Discontinued 0.4 MG SUBLINGUAL Every 5 minutes x 3 doses September 10, 2020 1:00am November 09, 2021 7:27pm ondansetron 4 mg oral tablet (5 sources) Serotonin-3 Receptor Antagonist Start: 09-10-2020 End: 09-15-2020 take 1 tablet by mouth every six hours Ondansetron Hcl (Zofran) 4 mg Tablet Discontinued 4 MG PO Q6H September 10, 2020 1:00am September 15, 2020 12:43pm pioglitazone 30 mg oral tablet (10 sources) Peroxisome Proliferator Receptor alpha Agonist, Peroxisome Proliferator Receptor gamma Agonist, Thiazolidinedione Start: 09-10-2020 End: 09-15-2020 take 30 mg by mouth once daily Pioglitazone Discontinued 30 MG PO Daily September 10, 2020 1:00am September 15, 2020 12:43pm Start: 09-10-2020 End: 09-10-2020 Pioglitazone Discontinued MG TABLET September 10, 2020 1:00am September 10, 2020 2:21am polyethylene glycol 3350 01259 mg powder for oral solution (5 sources) Osmotic Laxative Start: 09-10-2020 End: 09-19-2020 Polyethylene Glycol 3350 (Miralax) 17 gram Powder In Packet Discontinued 17 GM PO Daily September 10, 2020 1:00am September 19, 2020 1:20pm predniSONE 10 mg oral tablet (5 sources) Start: 09-10-2020 End: 09-15-2020 take 10 [...] with dinner. SITagliptin 100 mg oral tablet (15 sources) Dipeptidyl Peptidase 4 Inhibitor Start: 09-10-2020 End: 11-09-2021 take 100 mg by mouth once daily Sitagliptin Phosphate Discontinued 100 MG PO Daily September 15, 2020 5:27pm November 09, 2021 7:27pm sodium phosphate, dibasic 59.3 mg/ml / sodium phosphate, monobasic 161 mg/ml enema (5 sources) Start: 09-10-2020 End: 09-19-2020 Sodium Phosphates (Fleet Enema) 19-7 gram/118 mL Enema Discontinued 118 ML WI Daily September 10, 2020 1:00am September 19, 2020 1:20pm Travoprost (Travatan Z) 0.004 % Drops (10 sources) Start: 09-15-2020 End: 11-09-2021 take 0.004 [...] 5:29pm warfarin sodium 5 mg oral tablet (7 sources) Vitamin K Antagonist Start: 11-09-2021 End: 11-11-2021 take 5 mg by mouth once daily Warfarin Discontinued 5 MG PO Daily November 09, 2021 1:00am November 11, 2021 1:58pm Zinc (10 sources) Start: 09-15-2020 End: 09-19-2020 take 50 [...] UNSPECIFIED] Onset: 2 Episodic Acute cerebrovascular disease (16 sources) Spontaneous cerebral hemorrhage; Translations: [Nontraumatic intracerebral [...] NEOPLASM BREAST] Onset: 2 Episodic Cardiac dysrhythmias (14 sources) Atrial fibrillation; Translations: [Unspecified atrial fibrillation] [...] Onset: 2 Chronic Congestive heart failure; nonhypertensive (10 sources) Acute exacerbation of chronic congestive heart failure; Translations: [Heart failure, unspecified] Onset: 2 09-19-2020 Chronic Diabetes mellitus with complications (9 sources) Type 2 diabetes mellitus with diabetic chronic kidney disease; Translations: [Type 2 diabetes mellitus] Onset: 2 01-20-2024 Chronic Diabetes mellitus without complication (7 sources) Diabetes mellitus; Translations: [Type 2 diabetes mellitus without complications] Onset: 2 11-10-2021 Chronic Disorders of lipid metabolism (13 sources) Pure hypercholesterolemia, unspecified; Translations: [Hyperlipidemia, unspecified] Onset: 2 Chronic E Codes: Unspecified (1 source) Nosocomial condition; Translations: [NOSOCOMIAL CONDITION] Onset: 2 Episodic Essential hypertension (11 sources) Hypertensive disorder; Translations: [Essential (primary) hypertension] Onset: 2 11-10-2021 Chronic Fluid and electrolyte disorders (1 source) Hypokalemia; Translations: [HYPOKALEMIA] Onset: 2 Episodic Gastritis and duodenitis (1 source) Gastritis; Translations: [Gastritis, unspecified, without bleeding] 04-03-2024 Episodic Genitourinary symptoms and ill-defined conditions (5 sources) Proteinuria; Translations: [Proteinuria, unspecified] 02-10-2024 Episodic Glaucoma (2 sources) Primary open angle glaucoma; Translations: [Primary open-angle glaucoma, bilateral, mild stage] Onset: 4 10-31-2023 Chronic Heart valve disorders (4 sources) Nonrheumatic mitral (valve) insufficiency; Translations: [Rheumatic disorders of both mitral and tricuspid valves] Onset: 2 Chronic Hypertension with complications and secondary hypertension (11 sources) Hypertensive heart and chronic kidney disease [...] Onset: 2 Chronic Other aftercare (1 source) residential (current) use of oral hypoglycemic drugs; Translations: [PREMIUM CARD CANCELLATION CLERK USE ORAL HYPOGLYCEMIC DX] Onset: 2 Episodic Other aftercare (1 source) Other plating stripper (current) drug therapy; Translations: [OTH PREMIUM CARD CANCELLATION CLERK CURRENT DRUG THERAPY] Onset: 2 Episodic Other aftercare (1 source) residential (current) use of aspirin; Translations: [PREMIUM CARD CANCELLATION CLERK CURRENT USE OF ASPIRIN] Onset: 2 Episodic Other aftercare (1 source) residential (current) use of anticoagulants; Translations: [PREMIUM CARD CANCELLATION CLERK CURRNT USE ANTICOAGULANTS] Onset: 2 Episodic Other aftercare (4 sources) Encounter for therapeutic drug level monitoring; Translations: [facility]] Onset: 2 Episodic Other diseases of kidney and ureters (4 sources) Secondary hyperparathyroidism; Translations: [Secondary hyperparathyroidism of [...] Chronic Other nutritional; endocrine; and metabolic disorders (2 sources) Hypercalcemia; Translations: [Hypercalcemia] 02-10-2024 Chronic Other nutritional; endocrine; and metabolic disorders (2 sources) Hyperuricemia; Translations: [Hyperuricemia without signs of inflammatory arthritis and tophaceous disease] 02-10-2024 Episodic Other nutritional; endocrine; and metabolic disorders (1 source) Hyperuricemia without signs of inflammatory arthritis and tophaceous disease; Translations: [Other abnormal blood chemistry] 07-16-2024 Episodic Other screening for suspected conditions (not mental disorders or infectious disease) (8 sources) Patient encounter status; Translations: [Encounter for screening for osteoporosis] Onset: 2 Episodic Pneumonia (except that caused by tuberculosis or sexually transmitted disease) (8 sources) Pneumonia; Translations: [Pneumonia, unspecified organism] Onset: 2 09-10-2020 Episodic Pulmonary heart disease (3 sources) Pulmonary hypertension, unspecified; Translations: [PULMONARY HYPERTENSION UNSPECIFIED] Onset: 2 Chronic Pulmonary heart disease (5 sources) Pulmonary embolism; Translations: [Other pulmonary embolism without acute cor pulmonale] 09-10-2020 Episodic Residual codes; unclassified (1 source) Body mass index (BMI) 22.0-22.9, adult; Translations: [BODY MASS INDEX BMI 22.0-22.9 ADULT] Onset: 2 Episodic Respiratory failure; insufficiency; arrest (adult) (1 source) Dependence on supplemental oxygen; Translations: [DEPENDENCE ON SUPPLEMENTAL OXYGEN] Onset: 2 Chronic Respiratory failure; insufficiency; arrest (adult) (6 sources) Acute hypoxemic respiratory failure; Translations: [Acute respiratory failure with hypoxia] Onset: 2 09-10-2020 Episodic Septicemia (except in labor) (9 sources) Sepsis; Translations: [Sepsis, unspecified organism] Onset: 2 09-10-2020 Episodic Unclassified (1 source) PERSONAL HISTORY OF COVID-19; Translations: [PERSONAL HISTORY OF COVID-19] Onset: 2 Unclassified (1 source) CONTACT W/AND (SUSP) EXPOS COVID-19; Translations: [CONTACT W/AND (SUSP) EXPOS COVID-19] Onset: 2 Unclassified (1 source) CHRN KIDNEY DISEASE STG 3 UNSP; Translations: [CHRN KIDNEY DISEASE STG 3 UNSP] Onset: 2 Unclassified (1 source) PRIMARY OSTEOARTHRITS OT SPEC SITE; Translations: [PRIMARY OSTEOARTHRITS OT SPEC SITE] Onset: 2 Viral infection (5 sources) Disease caused by 2019-nCoV; Translations: [COVID-19] [...] Contreras on 05-26-2024 Glucose [Mass/Vol] 114 mg/dL [facility] Comment on above: Random Glucose Refer ence Range is dependent on time and content of last meal. Glucose of more than 200 mg/dL in a nonstressed, ambulatory subject supports the diagnosis of Diabetes Mellitus. Result Comment: [place] om Glucose Reference Range is dependent on time and content of last meal. Glucose of more than 200 mg/dL in a nonstressed, ambulatory subject supports the diagnosis of Diabetes Mellitus. Performed By: #### G LULS #### Point of Care testing , Glucose Poct Glucometerson 0 05-26-2024 Commemt1 Glu2: Cleaned Meter Normal [facility] Comment on above: Result Comment: PERF ORMED BY: [facility] [address] [place] [address] PATHOLOGIST TRAIN BRAKEMAN ADRIAN ROBERTSON M.D. Performed By: #### G LULS #### Point of Care testing , Isaac 05-26-2024 L Specimen: [id number] Received: 05/26/24 Status: RUPAJohn Pineda Num: [id number] Spec Type: Surgical Subm Dr: Amanda Contreras DO Tissues: A Gastric Biopsy (GASTRIC POLYP) B GASTRIC FOR HP (GASTRIC BX R/O H PYLORI) Procedures: HE/9, Gross/Micro L4/2, H PYLORI Age/ Patient Sex Location Account Attending Physician Andrew Barros A 78/F [id number] Amanda Contreras DO SPEC NUM: [id number] RECD: 05/26/24 STATUS: DELMY PINEDA NUM: [id number] JOANNA: 05/26/[address]: Amanda Contreras DO ENTERED: 05/26/[address] [facility] DR: SPEC TYPE: Surgical DEPT: S ENTERED BY: [id number] RECV BY: [id number] ORDERED: HE/9, Gross/Micro L4/2, H PYLORI ORDERED: [...] is entirely submitted in cassette B1. Specimen: [id number] Received: 05/26/24 Status: DELMY Pineda Num: [id number] Spec Type: Surgical Subm Dr: Amanda Contreras DO Tissues: A Gastric Biopsy (GASTRIC POLYP) B GASTRIC FOR HP (GASTRIC BX R/O H PYLORI) Procedures: Gross/Micro L4/2, H PYLORI Patient: Andrew Barros [id number] (Continued) Specimen: [id number] Received: 05/26/24 (Continued) Signed (signature on file) Zbigniew Hurst MD 06/04/24 1822 Specimen: [id number] Received: 05/26/24 Status: DELMY Pineda Num: [id number] Spec Type: Surgical Subm Dr: Amanda Contreras DO Tissues: A Gastric Biopsy (GASTRIC POLYP) B GASTRIC FOR HP (GASTRIC BX R/O H PYLORI) Procedures: Oksana/Micro L4/2, H PYLORI Patient: Andrew Barros [id number] (Continued) Specimen: [id number] Received: 05/26/24 (Continued) CPT Codes [id number] Specimen: [id number] Received: 05/26/24 Status: DELMY Pineda Num: [id number] Spec Type: Surgical Subm Dr: Amanda Contreras DO Tissues: A Gastric Biopsy (GASTRIC POLYP) B GASTRIC FOR HP (GASTRIC BX R/O H PYLORI) Procedures: HE/9, Gross/Micro L4/2, H PYLORI Patient: Andrew Barros [id number] (Continued) Signed (signature on file) Zbigniew Hurst MD 06/04/24 1822 Normal [facility] No Panel InformationOrdered By: Amanda Contreras on 05-26-2024 Bedside Glucose Comment Glu2: cleaned meter [facility] CNPNon 05-05-2024 CNPN Telephone ([facility]) ----- ANDREW BARROS ([id number]) 1945 F Date Time Provider Department 05/05/24 RE BALLESTEROS JR [facility] During your visit today, we recorded the following information about you: Anahy Masterson 05/05/2024 9:45 AM Signed Call center calling for assistance with scheduling this patient. Called and LMOM for patient's daughter Janki - [phone] - patient needs to be scheduled with Favian. Sachin Marsh 05/07/2024 1:30 PM Signed Left message on voicemail for patients daughter to call and schedule Sachin Marsh 05/08/2024 2:23 PM Signed Final attempt left message on voicemail for daughter to call and schedule Allergies As of Date: 05/05/2024 Noted Allergy Reaction WIRRFPL-BOM-WOG REDUCTASE INHIBIT*01/21/2018 16 - Unknown Comments: Other reaction(s): AOF Date Reviewed: 04/17/2024 Reviewed by: Cheyenne Ram, JARRET - Fully Assessed Reason for Visit: Schedule [...] Status:Closed by SACHIN MARSH on 05/08/24 Normal [facility] Hematocrit Auto (Bld) [Volum e fraction]on 04-23-2024 Hematocrit (Bld) [Volume fraction] 31.5 % Low 36.0-46.0 [facility] Comment on above: Order Comment: Speci men Type: BLOOD SPECIMENOrdering Facility: [facility] Address: [address] [place] [address] Performed By: #### 7 18-7, 4544-3 ####[facility] [id number] [place] [address] Hgb Bld-mCncon 04-23-2024 Hemoglobin (Bld) [Mass/Vol] 10.4 g/dL Low 11.5-15.5 [facility] Comment on above: Order Comment: Sosai men Type: BLOOD SPECIMENOrdering Facility: [facility] Address: [address] [place] [address] Performed By: #### 7 18-7, 4544-3 ####[facility] [id number] [place] [address] CBC panel Auto (Bld)on 04-20 Erythrocyte distribution width (RBC) [Ratio] 12.8 % Normal 11.5-15.0 [facility] Comment on above: Order Comment: Speci men Type: BLOOD SPECIMEN Ordering Facility: [facility] Address: [address] [place] [address] Performed By: #### 1 952-1, 2885-2 #### [facility] CLIA [id number] [address] [place], [place] [address] [place] [address] [place] Hematocrit (Bld) [Volume fraction] 30.7 % Low 36.0-46.0 [facility] Comment on above: Order Comment: Speci men Type: BLOOD SPECIMEN Ordering Facility: [facility] Address: [address] [place] [address] Performed By: #### 1 952-, 288-2 #### [facility] CLIA [id number] [address] [place] [address] [place] Hemoglobin (Bld) [Mass/Vol] 10.0 g/dL Low 11.5-15.5 [facility] Comment on above: Order Comment: Speci men Type: BLOOD SPECIMEN Ordering Facility: [facility] Address: [address] [place] [address] Performed By: #### 1 952-, 288- #### [facility] CLIA [id number] [address] [place] [address] [place] MCH (RBC) [Entitic mass] 30.5 pg Normal 26.0-34.0 [facility] Comment on above: Order Comment: Speci men Type: BLOOD SPECIMEN Ordering Facility: [facility] Address: [address] [place] [address] Performed By: #### 1 95-, 2884-10 #### [facility] CLIA [id number] [address] [place] [address] [place] MCHC (RBC) [Mass/Vol] 32.6 g/dL Normal 30.5-36.0 [facility] Comment on above: Order Comment: Speci men Type: BLOOD SPECIMEN Ordering Facility: [facility] Address: [address] [place] [address] Performed By: #### 1 952-, 2884-10 #### [facility] CLIA [id number] [address] [place] [address] [place] MCV (RBC) [Entitic vol] 93.6 fL Normal 80.0-100.0 [facility] Comment on above: Order Comment: Speci men Type: BLOOD SPECIMEN Ordering Facility: [facility] Address: [address] [place] [address] Performed By: #### 1 952-, 288-2 #### [facility] CLIA [id number] [address] [place] [address] [place] Nucleated RBC (Bld) [#/Vol] 10*3/uL Normal <0.01 [facility] Comment on above: Order Comment: Speci men Type: BLOOD SPECIMEN Ordering Facility: [facility] Address: [address] [place] [address] Performed By: #### 1 952-1, 2885-2 #### [facility] CLIA [id number] [address] [place] [address] [place] Platelet mean volume (Bld) [Entitic vol] 10.1 fL Normal 9.0-12.7 [facility] Comment on above: Order Comment: Speci men Type: BLOOD SPECIMEN Ordering Facility: [facility] Address: [address] [place] [address] Performed By: #### 1 952-1, 288-2 #### [facility] CLIA [id number] [address] [place] [address] [place] Platelets (Bld) [#/Vol] 280 10*3/uL Normal 150-400 [facility] Comment on above: Order Comment: Speci men Type: BLOOD SPECIMEN Ordering Facility: [facility] Address: [address] [place] [address] Performed By: #### 1 952-1, 288-2 #### [facility] CLIA [id number] [address] [place] [address] [place] RBC (Bld) [#/Vol] 3.28 10*6/uL Low 3.90-5.20 [facility] Comment on above: Order Comment: Speci men Type: BLOOD SPECIMEN Ordering Facility: [facility] Address: [address] [place] [address] Performed By: #### 1 952-1, 2885-2 #### [facility] CLIA [id number] [address] [place] [address] [place] WBC (Bld) [#/Vol] 10.77 10*3/uL Normal 3.70-11.00 [facility] Comment on above: Order Comment: Speci men Type: BLOOD SPECIMEN Ordering Facility: [facility] Address: [address] [place] [address] Performed By: #### 1 952-1, 2885-2 #### [facility] CLIA [id number] [address] [place], [place] [address] [place] [address] [place] CNPNon 04-20-2024 CNPN Telephone (HEMASA) ----- ANDREW BARROS ([id number]) 1945 F Date Time Provider Department 04/20/24 [...] check this morning to establish stability. Clemente Srivastava, RN 04/20/2024 11:11 AM Signed Pt daughter aware and reports pt had been previously scheduled for lab recheck today at 115 at our facility. Ordered by Primitivo Andrade MD. She is aware of additional standing orders placed by Dr [place], and that he will check today's results, and provide plan of care. Will watch for results and have [place] review and update plan JARRET Grimaldo Natalie, RN 04/20/2024 1:50 PM Signed [place]: please review today's lab and advise JARRET Grimaldo Vivek, MD 04/20/2024 10:35 PM Signed CBC stable, let's recheck on Saturday or , Please. Clemente Srivastava RN 04/21/2024 9:37 AM Signed DaughterRosenda updated and agrees to bring in Saturday or for recheck. Prefers to walk in with their schedules. Clemente Srivastava RN Allergies As of Date: 04/20/2024 Noted Allergy Reaction WAZUEFV-SWM-UBT REDUCTASE INHIBIT*01/21/2018 16 - Unknown Comments: Other [...] Status:Closed by CLEMENTE SRIVASTAVA on 04/21/24 Normal [facility] CBC panel Auto (Bld)on 04-17 Erythrocyte distribution width (RBC) [Ratio] 12.9 % Normal 11.5-15.0 [facility] Comment on above: Order Comment: Anastacio bonilla Type: BLOOD SPECIMEN Ordering Facility: [facility] Address: [address] [place] [address] Performed By: #### 1 952-1, 2885-2 #### [facility] CLIA [id number] [address] [place] [address] [place] Hematocrit (Bld) [Volume fraction] 31.6 % Low 36.0-46.0 [facility] Comment on above: Order Comment: Anastacio bonilla Type: BLOOD SPECIMEN Ordering Facility: [facility] Address: [address] [place] [address] Performed By: #### 1 952-1, 2885-2 #### [facility] CLIA [id number] [address] [place] [address] [place] Hemoglobin (Bld) [Mass/Vol] 10.5 g/dL Low 11.5-15.5 [facility] Comment on above: Order Comment: Anastacio bonilla Type: BLOOD SPECIMEN Ordering Facility: [facility] Address: [address] [place] [address] Performed By: #### 1 952-1, 288-2 #### [facility] CLIA [id number] [address] [place] [address] [place] MCH (RBC) [Entitic mass] 30.5 pg Normal 26.0-34.0 [facility] Comment on above: Order Comment: Speci men Type: BLOOD SPECIMEN Ordering Facility: [facility] Address: [address] [place] [address] Performed By: #### 1 952-1, 288-2 #### [facility] CLIA [id number] [address] [place] [address] [place] MCHC (RBC) [Mass/Vol] 33.2 g/dL Normal 30.5-36.0 [facility] Comment on above: Order Comment: Speci men Type: BLOOD SPECIMEN Ordering Facility: [facility] Address: [address] [place] [address] Performed By: #### 1 952-, 288- #### [facility] CLIA [id number] [address] [place] [address] [place] MCV (RBC) [Entitic vol] 91.9 fL Normal 80.0-100.0 [facility] Comment on above: Order Comment: Speci men Type: BLOOD SPECIMEN Ordering Facility: [facility] Address: [address] [place] [address] Performed By: #### 1 952-1, 288-2 #### [facility] CLIA [id number] [address] [place] [address] [place] Nucleated RBC (Bld) [#/Vol] 10*3/uL Normal <0.01 [facility] Comment on above: Order Comment: Speci men Type: BLOOD SPECIMEN Ordering Facility: [facility] Address: [address] [place] [address] Performed By: #### 1 952-1, 2885-2 #### [facility] CLIA [id number] [address] [place] [address] [place] Platelet mean volume (Bld) [Entitic vol] 10.6 fL Normal 9.0-12.7 [facility] Comment on above: Order Comment: Speci men Type: BLOOD SPECIMEN Ordering Facility: [facility] Address: [address] [place] [address] Performed By: #### 1 952-, 288-2 #### [facility] CLIA [id number] [address] [place] [address] [place] Platelets (Bld) [#/Vol] 248 10*3/uL Normal 150-400 [facility] Comment on above: Order Comment: Speci men Type: BLOOD SPECIMEN Ordering Facility: [facility] Address: [address] [place] [address] Performed By: #### 1 952-, 288-2 #### [facility] CLIA [id number] [address] [place] [address] [place] RBC (Bld) [#/Vol] 3.44 10*6/uL Low 3.90-5.20 [facility] Comment on above: Order Comment: Speci men Type: BLOOD SPECIMEN Ordering Facility: [facility] Address: [address] [place] [address] Performed By: #### 1 952-, 288-2 #### [facility] CLIA [id number] [address] [place] [address] [place] WBC (Bld) [#/Vol] 10.59 10*3/uL Normal 3.70-11.00 [facility] Comment on above: Order Comment: Speci men Type: BLOOD SPECIMEN Ordering Facility: [facility] Address: [address] [place] [address] Performed By: #### 1 952-, 288-2 #### [facility] CLIA [id number] [address] [place] [address] [place] Erythrocyte distribution width (RBC) [Ratio] 13.1 % Normal 11.5-15.0 [facility] Comment on above: Order Comment: Speci men Type: BLOOD SPECIMENOrdering Facility: [facility] Address: [address] [place] [address] Performed By: #### 5 8410-2 ####[facility] [id number] [place] [address] [place] Hematocrit (Bld) [Volume fraction] 32.2 % Low 36.0-46.0 [facility] Comment on above: Order Comment: Speci men Type: BLOOD SPECIMENOrdering Facility: [facility] Address: [address] [place] [address] Performed By: #### 5 8410-2 ####[facility] [id number] [place] [address] [place] Hemoglobin (Bld) [Mass/Vol] 10.7 g/dL Low 11.5-15.5 [facility] Comment on above: Order Comment: Speci men Type: BLOOD SPECIMENOrdering Facility: [facility] Address: [address] [place] [address] Performed By: #### 5 8410-2 ####[facility] [id number] [place] [address] [place] MCH (RBC) [Entitic mass] 30.9 pg Normal 26.0-34.0 [facility] Comment on above: Order Comment: Speci men Type: BLOOD SPECIMENOrdering Facility: [facility] Address: [address] [place] [address] Performed By: #### 5 8410-2 ####[facility] [id number] [place] [address] [place] MCHC (RBC) [Mass/Vol] 33.2 g/dL Normal 30.5-36.0 [facility] Comment on above: Order Comment: Speci men Type: BLOOD SPECIMENOrdering Facility: [facility] Address: [address] [place] [address] Performed By: #### 5 8410-2 ####[facility] [id number] [place] [address] [place] MCV (RBC) [Entitic vol] 93.1 fL Normal 80.0-100.0 [facility] Comment on above: Order Comment: Speci men Type: BLOOD SPECIMENOrdering Facility: [facility] Address: [address] [place] [address] Performed By: #### 5 8410-2 ####[facility] [id number] [place] [address] [place] Nucleated RBC (Bld) [#/Vol] 10*3/uL Normal <0.01 [facility] Comment on above: Order Comment: Speci men Type: BLOOD SPECIMENOrdering Facility: [facility] Address: [address] [place] [address] Performed By: #### 5 8410-2 ####[facility] [id number] [place] [address] [place] Platelet mean volume (Bld) [Entitic vol] 10.6 fL Normal 9.0-12.7 [facility] Comment on above: Order Comment: Speci men Type: BLOOD SPECIMENOrdering Facility: [facility] Address: [address] [place] [address] Performed By: #### 5 8410-2 ####[facility] [id number] [place] [address] [place] Platelets (Bld) [#/Vol] 250 10*3/uL Normal 150-400 [facility] Comment on above: Order Comment: Speci men Type: BLOOD SPECIMENOrdering Facility: [facility] Address: [address] [place] [address] Performed By: #### 5 8410-2 ####[facility] [id number] [place] [address] [place] RBC (Bld) [#/Vol] 3.46 10*6/uL Low 3.90-5.20 [facility] Comment on above: Order Comment: Speci men Type: BLOOD SPECIMENOrdering Facility: [facility] Address: [address] [place] [address] Performed By: #### 5 8410-2 ####[facility] [id number] [place] [address] [place] WBC (Bld) [#/Vol] 8.61 10*3/uL Normal 3.70-11.00 [facility] Comment on above: Order Comment: Speci men Type: BLOOD SPECIMENOrdering Facility: [facility] Address: [address] [place] [address] Performed By: #### 5 8410-2 ####[facility] [id number] [place] [address] [place] ABD/PEL WO IVCONon 2023 CT ABD/PEL WO IVCON * * *Final Report* * * DATE OF EXAM: Apr 17 2024 10:09AM [facility] [place] - CT ABD/PEL WO IVCON / [...] No fluid collection amenable to percutaneous drain. Director Consumer: ANIBAL Transcribe Date/Time: Apr 17 2024 10:14A Dictated by : DONNA KOCH MD This examination was interpreted and the report reviewed and electronically signed by: CHRISSIE LEE MD on Apr 17 2024 12:06PM EST [id number] Normal [facility] HISTORY PHYSICALon HISTORY PHYSICAL HNO ID: [id number] Author: HAYDER AVILA MD Service: Nephrology Author Type: Physician Type: H&P Filed: 04/17/2024 15:53 Note Text: NEPHROLOGY DEPARTMENT POST-PROCEDURE OBSERVATION HISTORY AND PHYSICAL PLEASE DO NOT REMOVE FROM THE CHART OR MODIFY PRINTED COPY Portable Machine Cutter: Vince Rojo Ordering Physician: Sandeep Lenz PRIMARY CARE PHYSICIAN: Eduardo Sharpe MD HANDP: CC: 78 year old year old female admitted to [facility] for observation following renal biopsy. Underwent [...] of renal significance. Last saw her primary appeals representative at [facility] on February 10, 2024. Longstanding CKD was [...] Reported on 11/25/2023) ALLERGIES: ALLERGIES Allergen Reactions Ahlqity-Dnn-Ozn Red* Unknown Other reaction(s): AOF SOCIAL HISTORY: Social History Tobacco Use Smoking status: Never Passive exposure: Never Smokeless tobacco: Never Substance Use Topics Alcohol use: Yes Comment: very rare Drug use: Not Curren (more content not included)... Normal [facility] BRIEF OP NOTon 04-16-2024 BRIEF OP NOT HNO ID: [id number] Author: PRIMITIVO ANDRADE MD Service: Radiology Author Type: Physician Type: Brief Op Note Filed: 04/16/2024 12:56 Note Text: BRIEF OPERATIVE / PROCEDURE NOTE LOG ID: [id number] SURGERY/PROCEDURE DATE: 04/16/2024 INCISION/PROCEDURE START TIME: 12:18 PM INCISION CLOSE/PROCEDURE END TIME: 12:37 PM SURGEON(S)/PROCEDURALIST( S) AND AQUARIUM TANK ATTENDANT(S): Surgeon(s) and Role: * Primitivo Andrade MD - Primary No Additional Staff SURGERY/PROCEDURE(S): L standing rock kidney biopsy ANESTHESIA: Procedural Sedation FINDINGS: Biopsy [...] April 16, 2024 TIME: 12:52 PM Normal [facility] CBC panel Auto (Bld)on 04-16 Erythrocyte distribution width (RBC) [Ratio] 13.0 % Normal 11.5-15.0 [facility] Comment on above: Order Comment: Speci men Type: BLOOD SPECIMEN Ordering Facility: [facility] Address: [address] [place] [address] Performed By: #### 5 8410-2 #### [facility] CLIA [id number] [address] [place] [address] [place] Hematocrit (Bld) [Volume fraction] 35.5 % Low 36.0-46.0 [facility] Comment on above: Order Comment: Speci men Type: BLOOD SPECIMEN Ordering Facility: [facility] Address: [address] [place] [address] Performed By: #### 5 8410-2 #### [facility] CLIA [id number] [address] [place] [address] [place] Hemoglobin (Bld) [Mass/Vol] 11.8 g/dL Normal 11.5-15.5 [facility] Comment on above: Order Comment: Speci men Type: BLOOD SPECIMEN Ordering Facility: [facility] Address: [address] [place] [address] Performed By: #### 5 8410-2 #### [facility] CLIA [id number] [address] [place] [address] [place] MCH (RBC) [Entitic mass] 31.1 pg Normal 26.0-34.0 [facility] Comment on above: Order Comment: Speci men Type: BLOOD SPECIMEN Ordering Facility: [facility] Address: [address] [place] [address] Performed By: #### 5 8410-2 #### [facility] CLIA [id number] [address] [place] [address] [place] MCHC (RBC) [Mass/Vol] 33.2 g/dL Normal 30.5-36.0 [facility] Comment on above: Order Comment: Speci men Type: BLOOD SPECIMEN Ordering Facility: [facility] Address: [address] [place] [address] Performed By: #### 5 8410-2 #### [facility] CLIA [id number] [address] [place] [address] [place] MCV (RBC) [Entitic vol] 93.4 fL Normal 80.0-100.0 [facility] Comment on above: Order Comment: Speci men Type: BLOOD SPECIMEN Ordering Facility: [facility] Address: [address] [place] [address] Performed By: #### 5 8410-2 #### [facility] CLIA [id number] [address] [place] [address] [place] Nucleated RBC (Bld) [#/Vol] 10*3/uL Normal <0.01 [facility] Comment on above: Order Comment: Speci men Type: BLOOD SPECIMEN Ordering Facility: [facility] Address: [address] [place] [address] Performed By: #### 5 8410-2 #### [facility] CLIA [id number] [address] [place] [address] [place] Platelet mean volume (Bld) [Entitic vol] 10.9 fL Normal 9.0-12.7 [facility] Comment on above: Order Comment: Speci men Type: BLOOD SPECIMEN Ordering Facility: [facility] Address: [address] [place] [address] Performed By: #### 5 8410-2 #### [facility] CLIA [id number] [address] [place] [address] [place] Platelets (Bld) [#/Vol] 270 10*3/uL Normal 150-400 [facility] Comment on above: Order Comment: Speci men Type: BLOOD SPECIMEN Ordering Facility: [facility] Address: [address] [place] [address] Performed By: #### 5 8410-2 #### [facility] CLIA [id number] [address] [place] [address] [place] RBC (Bld) [#/Vol] 3.80 10*6/uL Low 3.90-5.20 [facility] Comment on above: Order Comment: Speci men Type: BLOOD SPECIMEN Ordering Facility: [facility] Address: [address] [place] [address] Performed By: #### 5 8410-2 #### [facility] CLIA [id number] [address] [place] [address] [place] WBC (Bld) [#/Vol] 7.47 10*3/uL Normal 3.70-11.00 [facility] Comment on above: Order Comment: Speci men Type: BLOOD SPECIMEN Ordering Facility: [facility] Address: [address] [place] [address] Performed By: #### 5 8410-2 #### [facility] CLIA [id number] [address] [place] [address] [place] [address] [place] HISTORY PHYSICALon HISTORY PHYSICAL HNO ID: [id number] Author: PRIMITIVO ANDRADE MD Service: Radiology Author [...] female who presents for image guided random standing rock kidney biopsy with moderate sedation. PROCEDURE: Image guided random standing rock kidney biopsy with moderate sedation. PROCEDURE INDICATIONS: [...] taking: Reported on 11/25/2023 ALLERGIES Allergen Reactions Mmptfxx-Yog-Hox Red* Unknown Other reaction(s): AOF PAST MEDICAL [...] with patient. Proceed with Image guided random standing rock kidney biopsy with moderate sedation. ASA Class:: Patient with mild systemic disease SEDATION GOAL: Moderate SIGNATURE: Elías Amato MD PATIENT NAME: Andrew Barros DATE: April 16, 2024 TIME: 10:13 AM PAGER: [phone] Normal [facility] Hgb Bld-mCncon 04-16-2024 Hemoglobin (Bld) [Mass/Vol] 10.4 g/dL Low 11.5-15.5 [facility] Comment on above: Order Comment: Speci men Type: BLOOD SPECIMENOrdering Facility: [facility] Address: [address] [place] [address] Performed By: #### 7 18-7 ####[facility] [id number] [address] OF [facility] NURSING PROGon 04-16-2024 NURSING PROG HNO ID: [id number] Author: MIGUEL WALKER RN Service: Nursing Author Type: Registered Nurse Type: Nursing Progress Note Filed: 04/17/2024 03:03 Note Text: Other: looping machine operator nephrology resident notified of HGB drop from 11.8 to 10.4. VS stable, no s/s of bleeding noted. Will continue to monitor Normal [facility] NURSING PROG HNO ID: [id number] Author: RADHA UMANA RN Service: Nursing Author Type: Registered Nurse Type: Nursing Progress Note Filed: 04/16/2024 13:58 Note Text: Admission/Transfer Note PATIENT NAME: Andrew Barros Patient Location: LK25-Rmubyn/NG69-Hvcvtg Room: PE81-Fgauth (HOSP OPTIME ANGIO FB PRE POST) Patient admitted from PACU via bed in stable condition. Actions taken: Patient oriented to room, call light function, and prescribed activities. Constant observation to be continued. This note was completed by: Radha Umana Normal [facility] PT EDon 04-16-2024 PT ED HNO ID: [id number] Author: DARIEN MILLS, RN Service: Nursing Author Type: Registered Nurse Type: Patient Education Filed: 04/16/2024 11:59 Note Text: AMBULATORY PATIENT EDUCATION TOPIC: Survival Skills: Procedure, standing rock kidney biopsy READINESS TO LEARN COGNITIVE ABILITY: [...] Signed By: Darien Phillips RN In Department: [place] [address] Normal [facility] SURGICAL PATHOLOGYon 024 CASE REPORT Normal [facility] Comment on above: Order Comment: Speci men Type: BLOOD SPECIMEN Ordering Facility: [facility] Address: [address] [place] [address] Result Comment: Surg 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 Creatinine 1.42, albumin 4.0, timed urine protein 0.73 g, MPA with IgM kappa M protein, UMPA with free kappa light chains, kappa lambda ratio 2.31. Normal [facility] Comment on above: Order Comment: Speci men Type: BLOOD SPECIMEN Ordering Facility: [facility] Address: [address] [place] [address] Performed By: #### 1 952-1, 2885-2 #### [facility] CLIA [id number] [address] [place] [address] [place] DIAGNOSIS COMMENT Normal [facility] Comment on above: Order Comment: Speci men Type: BLOOD SPECIMEN Ordering Facility: [facility] Address: [address] [place] [address] Result Comment: Immu nofluorescence is essentially negative, [...] been determined by the performing laboratory within [facility]???s [facility] Medicine Department ([facility], [facility], [facility], [facility], [facility], [facility], or [facility]) in a manner consistent with CLIA requirements. One or more of these tests have not been cleared or approved by the FDA. [facility] is regulated under CLIA as qualified to perform high-complexity testing. These tests are used for clinical purposes. They should not be regarded as investigational or for research. Positive and negative controls stain appropriately. Performed By: #### 1 952-1, 2885-2 #### [facility] CLIA [id number] [address] [place] [address] [place] FINAL DIAGNOSIS Normal [facility] Comment on above: Order Comment: Speci men Type: BLOOD SPECIMEN Ordering Facility: [facility] Address: [address] [place] [address] Result Comment: A. K idney, Left, Biopsy: - Focal global glomerulosclerosis, mild. See comment. - Tubular atrophy and interstitial fibrosis, mild. - Arteriosclerosis, moderate, and arteriolosclerosis, moderate to severe. Performed By: #### 1 952-1, 2885-2 #### [facility] CLIA [id number] [address] [place] [address] STATES [place] [facility] FINAL PERFORMING LAB Normal [facility] Comment on above: Order Comment: Speci men Type: BLOOD SPECIMEN Ordering Facility: [facility] Address: [address] [place] [address] Result Comment: Diag nostic interpretation performed at [facility], [address] [place] [address] CLIA# [id number] [employer] Inspector: Sunil Moreno M.D. Performed By: #### 1 952-, 2885-2 #### [facility] CLIA [id number] [address] [place] [address] GROSS DESCRIPTION Normal [facility] Comment on above: Order Comment: Speci men Type: BLOOD SPECIMEN Ordering Facility: [facility] Address: [address] [place] [address] Result Comment: Michelle houston, Left, Biopsy Received [...] 2024 12:48 PM Gross examination performed at [facility], [address] [place] [address] Performed By: #### 1 952-1, 2885-2 #### [facility] IA [id number] [address] [place] [address] [place] MICROSCOPIC DESCRIPTION Normal [facility] Comment on above: Order Comment: Speci men Type: BLOOD SPECIMEN Ordering Facility: [facility] Address: [address] [place] [address] Result Comment: Sect ions are stained for [...] IgM and are negative for other immunoreactants. [place] and lambda stain equally throughout the tubulointerstitium [...] Performed By: #### 1 952-1, 2885-2 #### [facility] CLIA [id number] [address] [place] [address] [place] US BIOPSY RENALon 04-16-2024 US BIOPSY RENAL * * *Final Report* * * DATE OF EXAM: Apr 16 2024 2:10PM [facility] - BIOPSY RENAL / PROCEDURE REASON: [D47.2] * * * * Physician Interpretation * * * * PROCEDURE PERFORMED: ULTRASOUND GUIDED BIOPSY PRE-PROCEDURE DIAGNOSIS: MGUS, chronic kidney disease. POST-PROCEDURE DIAGNOSIS: Same as pre-procedure diagnosis INDICATION FOR PROCEDURE: MGUS, chronic kidney disease. RELEVANT PRIOR STUDIES: PET/CT 03/20/2024 STAFF RADIOLOGIST: Dr. Andrade AQUARIUM TANK ATTENDANT(S): None CONSENT: The risks, benefits, treatment options, [...] performed by the: attending radiologist, without an planning assistant. ANESTHESIA/SEDATION: Conscious sedation: Versed: 0.5 mg [...] needle. IMPRESSION: ULTRASOUND GUIDED BIOPSY DESCRIBED. v .9.21 Director Consumer: ANIBAL Transcribe Date/Time: Apr 16 2024 3:32P Dictated by : PRIMITIVO ANDRADE MD This examination was interpreted and the report reviewed and electronically signed by: PRIMITIVO ANDRADE MD on Apr 16 2024 3:40PM EST [id number] Normal [facility] CBC W Auto Differential pane l (Bld)on 04-14-2024 Basophils (Bld) [#/Vol] 0.06 10*3/uL Normal <0.11 [facility] Comment on above: Order Comment: Speci men Type: BLOOD SPECIMENOrdering Facility: [facility] Address: [address] [place] [address] Performed By: #### 5 7021-8 ####[facility] [id number] [place] [address] Basophils/100 WBC (Bld) 0.4 % Normal [facility] Comment on above: Order Comment: Speci men Type: BLOOD SPECIMENOrdering Facility: [facility] Address: [address] [place] [address] Performed By: #### 5 7021-8 ####[facility] [id number] [place] [address] Differential cell count method Nom (Bld) Auto Normal [facility] Comment on above: Order Comment: Speci men Type: BLOOD SPECIMENOrdering Facility: [facility] Address: [address] [place] [address] Performed By: #### 5 7021-8 ####[facility] [id number] [place] [address] Eosinophils (Bld) [#/Vol] 0.03 10*3/uL Normal <0.46 [facility] Comment on above: Order Comment: Speci men Type: BLOOD SPECIMENOrdering Facility: [facility] Address: [address] [place] [address] Performed By: #### 5 7021-8 ####[facility] [id number] [place] [address] Eosinophils/100 WBC (Bld) 0.2 % Normal [facility] Comment on above: Order Comment: Speci men Type: BLOOD SPECIMENOrdering Facility: [facility] Address: [address] [place] [address] Performed By: #### 5 7021-8 ####[facility] [id number] [place] [address] Erythrocyte distribution width (RBC) [Ratio] 13.0 % Normal 11.5-15.0 [facility] Comment on above: Order Comment: Speci men Type: BLOOD SPECIMENOrdering Facility: [facility] Address: [address] [place] [address] Performed By: #### 5 7021-8 ####[facility] [id number] [place] [address] Hematocrit (Bld) [Volume fraction] 37.8 % Normal 36.0-46.0 [facility] Comment on above: Order Comment: Speci men Type: BLOOD SPECIMENOrdering Facility: [facility] Address: [address] [place] [address] Performed By: #### 5 7021-8 ####[facility] [id number] [place] [address] Hemoglobin (Bld) [Mass/Vol] 12.3 g/dL Normal 11.5-15.5 [facility] Comment on above: Order Comment: Speci men Type: BLOOD SPECIMENOrdering Facility: [facility] Address: [address] [place] [address] Performed By: #### 5 7021-8 ####[facility] [id number] [place] [address] Immature granulocytes (Bld) [#/Vol] 0.06 10*3/uL Normal <0.10 [facility] Comment on above: Order Comment: Speci men Type: BLOOD SPECIMENOrdering Facility: [facility] Address: [address] [place] [address] Performed By: #### 5 7021-8 ####[facility] [id number] [place] [address] Immature granulocytes/100 WBC (Bld) 0.4 % Normal [facility] Comment on above: Order Comment: Speci men Type: BLOOD SPECIMENOrdering Facility: [facility] Address: [address] [place] [address] Performed By: #### 5 7021-8 ####[facility] [id number] [place] [address] Lymphocytes (Bld) [#/Vol] 1.18 10*3/uL Normal 1.00-4.00 [facility] Comment on above: Order Comment: Speci men Type: BLOOD SPECIMENOrdering Facility: [facility] Address: [address] [place] [address] Performed By: #### 5 7021-8 ####[facility] [id number] [place] [address] Lymphocytes/100 WBC (Bld) 8.6 % Normal [facility] Comment on above: Order Comment: Speci men Type: BLOOD SPECIMENOrdering Facility: [facility] Address: [address] [place] [address] Performed By: #### 5 7021-8 ####[facility] [id number] [place] [address] MCH (RBC) [Entitic mass] 30.5 pg Normal 26.0-34.0 [facility] Comment on above: Order Comment: Speci men Type: BLOOD SPECIMENOrdering Facility: [facility] Address: [address] [place] [address] Performed By: #### 5 7021-8 ####[facility] [id number] [place] [address] MCHC (RBC) [Mass/Vol] 32.5 g/dL Normal 30.5-36.0 [facility] Comment on above: Order Comment: Speci men Type: BLOOD SPECIMENOrdering Facility: [facility] Address: [address] [place] [address] Performed By: #### 5 7021-8 ####[facility] [id number] [place] [address] MCV (RBC) [Entitic vol] 93.8 fL Normal 80.0-100.0 [facility] Comment on above: Order Comment: Speci men Type: BLOOD SPECIMENOrdering Facility: [facility] Address: [address] [place] [address] Performed By: #### 5 7021-8 ####[facility] [id number] [place] [address] Monocytes (Bld) [#/Vol] 1.40 10*3/uL High <0.87 [facility] Comment on above: Order Comment: Speci men Type: BLOOD SPECIMENOrdering Facility: [facility] Address: [address] [place] [address] Performed By: #### 5 7021-8 ####[facility] [id number] [place] [address] Monocytes/100 WBC (Bld) 10.2 % Normal [facility] Comment on above: Order Comment: Speci men Type: BLOOD SPECIMENOrdering Facility: [facility] Address: [address] [place] [address] Performed By: #### 5 7021-8 ####[facility] [id number] [place] [address] Neutrophils (Bld) [#/Vol] 11.04 10*3/uL High 1.45-7.50 [facility] Comment on above: Order Comment: Speci men Type: BLOOD SPECIMENOrdering Facility: [facility] Address: [address] [place] [address] Performed By: #### 5 7021-8 ####[facility] [id number] [place] [address] Neutrophils/100 WBC (Bld) 80.2 % Normal [facility] Comment on above: Order Comment: Speci men Type: BLOOD SPECIMENOrdering Facility: [facility] Address: [address] [place] [address] Performed By: #### 5 7021-8 ####[facility] [id number] [place] [address] Nucleated RBC (Bld) [#/Vol] 10*3/uL Normal <0.01 [facility] Comment on above: Order Comment: Speci men Type: BLOOD SPECIMENOrdering Facility: [facility] Address: [address] [place] [address] Performed By: #### 5 7021-8 ####[facility] [id number] [place] [address] Nucleated RBC/100 WBC (Bld) [Ratio] 0.0 /100 WBC Normal [facility] Comment on above: Order Comment: Speci men Type: BLOOD SPECIMENOrdering Facility: [facility] Address: [address] [place] [address] Performed By: #### 5 7021-8 ####[facility] [id number] [place] [address] Platelet mean volume (Bld) [Entitic vol] 11.1 fL Normal 9.0-12.7 [facility] Comment on above: Order Comment: Speci men Type: BLOOD SPECIMENOrdering Facility: [facility] Address: [address] [place] [address] Performed By: #### 5 7021-8 ####[facility] [id number] [place] [address] Platelets (Bld) [#/Vol] 241 10*3/uL Normal 150-400 [facility] Comment on above: Order Comment: Speci men Type: BLOOD SPECIMENOrdering Facility: [facility] Address: [address] [place] [address] Performed By: #### 5 7021-8 ####[facility] [id number] [place] [address] RBC (Bld) [#/Vol] 4.03 10*6/uL Normal 3.90-5.20 [facility] Comment on above: Order Comment: Speci men Type: BLOOD SPECIMENOrdering Facility: [facility] Address: [address] [place] [address] Performed By: #### 5 7021-8 ####[facility] [id number] [place] [address] WBC (Bld) [#/Vol] 13.77 10*3/uL High 3.70-11.00 [facility] Comment on above: Order Comment: Speci men Type: BLOOD SPECIMENOrdering Facility: [facility] Address: [address] [place] [address] Performed By: #### 5 7021-8 ####[facility] [id number] [place] [address] Calcium.ionized [Moles/Vol]o n 04-14-2024 Calcium.ionized (Bld) [Mass/Vol] 1.19 mmol/L Normal 1.08-1.30 [facility] Comment on above: Order Comment: Speci men Type: BLOOD SPECIMENOrdering Facility: [facility] Address: [address] [place] [address] Result Comment: Joanna ection tube not filled. Ionized Calcium may be falsely decreased. Performed By: #### 1 995-0 ####[facility] [id number] [facility] [id number] [place] [address] [place] Calcium.ionized adjusted to pH 7.4 (Bld) [Moles/Vol] 1.21 mmol/L Normal 1.08-1.30 [facility] Comment on above: Order Comment: Speci men Type: BLOOD SPECIMENOrdering Facility: [facility] Address: [address] [place] [address] Result Comment: Joanna ection tube not filled. Ionized Calcium may be falsely decreased. Performed By: #### 1 995-0 ####[facility] [id number] [place] [address] [place] Comprehensive metabolic 2000 panelon 04-14-2024 Albumin [Mass/Vol] 4.0 g/dL Normal 3.9-4.9 [facility] Comment on above: Order Comment: Speci men Type: BLOOD SPECIMEN Ordering Facility: [facility] Address: [address] [place] [address] Performed By: #### 1 952-1, 2885-2 #### [facility] CLIA [id number] [address] [place] [address] [place] ALP [Catalytic activity/Vol] 92 U/L Normal 34-123 [facility] Comment on above: Order Comment: Speci men Type: BLOOD SPECIMEN Ordering Facility: [facility] Address: [address] [place] [address] Performed By: #### 1 952-1, 2885-2 #### [facility] CLIA [id number] [address] [place] [address] [place] ALT [Catalytic activity/Vol] 11 U/L Normal 7-38 [facility] Comment on above: Order Comment: Speci men Type: BLOOD SPECIMEN Ordering Facility: [facility] Address: [address] [place] [address] Performed By: #### 1 952-1, 2885-2 #### [facility] CLIA [id number] [address] [place] [address] [place] Anion gap [Moles/Vol] 14 mmol/L Normal 8-15 [facility] Comment on above: Order Comment: Speci men Type: BLOOD SPECIMEN Ordering Facility: [facility] Address: [address] [place] [address] Performed By: #### 1 952-1, 288-2 #### [facility] CLIA [id number] [address] [place] [address] [place] AST [Catalytic activity/Vol] 15 U/L Normal 13-35 [facility] Comment on above: Order Comment: Speci men Type: BLOOD SPECIMEN Ordering Facility: [facility] Address: [address] [place] [address] Performed By: #### 1 952-1, 288-2 #### [facility] CLIA [id number] [address] [place] [address] [place] Bilirubin [Mass/Vol] 0.7 mg/dL Normal 0.2-1.3 [facility] Comment on above: Order Comment: Speci men Type: BLOOD SPECIMEN Ordering Facility: [facility] Address: [address] [place] [address] Performed By: #### 1 952-, 288-2 #### [facility] CLIA [id number] [address] [place] [address] [place] Calcium [Mass/Vol] 9.8 mg/dL Normal 8.5-10.2 [facility] Comment on above: Order Comment: Speci men Type: BLOOD SPECIMEN Ordering Facility: [facility] Address: [address] [place] [address] Performed By: #### 1 952-1, 288-2 #### [facility] CLIA [id number] [address] [place] [address] [place] Chloride [Moles/Vol] 99 mmol/L Normal 98-107 [facility] Comment on above: Order Comment: Speci men Type: BLOOD SPECIMEN Ordering Facility: [facility] Address: [address] [place] [address] Performed By: #### 1 952-1, 2885-2 #### [facility] CLIA [id number] [address] [place] [address] [place] CO2 [Moles/Vol] 23 mmol/L Normal 22-30 [facility] Comment on above: Order Comment: Speci men Type: BLOOD SPECIMEN Ordering Facility: [facility] Address: [address] [place] [address] Performed By: #### 1 952-1, 2885-2 #### [facility] CLIA [id number] [address] [place] [address] [place] Creatinine [Mass/Vol] 1.42 mg/dL High 0.58-0.96 [facility] Comment on above: Order Comment: Speci men Type: BLOOD SPECIMEN Ordering Facility: [facility] Address: [address] [place] [address] Performed By: #### 1 952-1, 2885-2 #### [facility] CLIA [id number] [address] [place] [address] [place] Creatinine and Glomerular filtration rate.predicted panel (S/P/Bld) 38 mL/min/1.73m??? Low >=60 [facility] Comment on above: Order Comment: Speci men Type: BLOOD SPECIMEN Ordering Facility: [facility] Address: [address] [place] [address] Result Comment: Sugar mated Glomerular Filtration Rate [...] Performed By: #### 1 952-1, 2885-2 #### [facility] CLIA [id number] [address] [place] [address] [place] Glucose [Mass/Vol] 181 mg/dL High 74-99 [facility] Comment on above: Order Comment: Specsussy men Type: BLOOD SPECIMEN Ordering Facility: [facility] Address: [address] [place] [address] Result Comment: The [place] [employer] (ADA) provides guidance for cutoff [...] Standards of Medical Care in Diabetes 2016, [place] [employer]. Diabetes Care. 2016.39(Suppl 1). Performed By: #### 1 952-1, 2885-2 #### [facility] CLIA [id number] [address] [place] [address] [place] Potassium [Moles/Vol] 4.0 mmol/L Normal 3.7-5.1 [facility] Comment on above: Order Comment: Anastacio bonilla Type: BLOOD SPECIMEN Ordering Facility: [facility] Address: [address] [place] [address] Performed By: #### 1 952-, 2885-2 #### [facility] CLIA [id number] [address] [place] [address] [place] Protein [Mass/Vol] 7.7 g/dL Normal 6.3-8.0 [facility] Comment on above: Order Comment: Anastacio bonilla Type: BLOOD SPECIMEN Ordering Facility: [facility] Address: [address] [place] [address] Performed By: #### 1 952-1, 2885-2 #### [facility] CLIA [id number] [address] [place] [address] [place] Sodium [Moles/Vol] 136 mmol/L Normal 136-144 [facility] Comment on above: Order Comment: Anastacio bonilla Type: BLOOD SPECIMEN Ordering Facility: [facility] Address: [address] [place] [address] Performed By: #### 1 952-1, 2885-2 #### [facility] CLIA [id number] [address] [place] [address] [place] Urea nitrogen [Mass/Vol] 27 mg/dL High 7-21 [facility] Comment on above: Order Comment: Anastcaio bonilla Type: BLOOD SPECIMEN Ordering Facility: [facility] Address: [address] [place] [address] Performed By: #### 1 952-1, 2885-2 #### [facility] CLIA [id number] [address] [place] [address] [place] PT panel Coag (PPP)on 2023 INR Coag (PPP) [Relative time] 1.0 {INR} Normal 0.9-1.3 [facility] Comment on above: Order Comment: Anastacio bonilla Type: BLOOD SPECIMEN Ordering Facility: [facility] Address: [address] [place] [address] Result Comment: Sandra min K Antagonist (VKA) Therapeutic Range: INR 2 to 3 (Target INR of 2.5) Note: For patients treated with VKA drugs, such as warfarin, the [place] [employer] 2012 Guideline recommends [...] to 3.5 (target INR of 3). Linus GALLEGO, et al. Chest 2012, 141:7S-47S Severino RA, et al. [facility] 2017, 70: 252-289 Performed By: #### 1 952-1, 2885-2 #### [facility] IA [id number] [address] [place], [place] [address] [place] [address] [place] PT Coag (PPP) [Time] 10.9 s Normal 9.7-13.0 [facility] Comment on above: Order Comment: Speci men Type: BLOOD SPECIMEN Ordering Facility: [facility] Address: [address] [place] [address] Performed By: #### 1 952-1, 2885-2 #### [facility] IA [id number] [address] [place], [place] [address] [place] [address] [place] NURSING PROGon 04-08-2024 NURSING PROG HNO ID: [id number] Author: MARTY SANCHEZ RN Service: Nursing Author Type: Registered Nurse Type: Nursing Progress Note Filed: 04/08/2024 16:49 Note Text: Pre-procedure instructions: Contacted patient/daughter Sugey and confirmed appt. for Random [place] Kidney Biopsy scheduled on 04/16/2024, at [facility]. I will wait while you get a [...] be drawn prior to 04/16/2024 at any [facility]. If the labs are drawn same day as procedure, please report to J1-4 by 0830. Labs to be completed by 04/16/2024. CBC and PROTHROMBIN TIME/PT Arrival: Please bring your Photo ID and Insurance Card. A general consent may need to be signed. Arrival at 0930 to desk QB-1 ([place]) and check in for your procedure. Anesthesia Resident/Transportation: How will you be arriving for your procedure? Private car. If you will be arriving at [facility] via ambulance or public transportation, please call to discuss. You will need a responsible adult to accompany you to and from the procedure. Your jukebox route driver is required to stay with you until you are taken into the Procedure room. If you develop any of the following symptoms before your procedure, please call [phone]. Chills, joint pain, rash, sore throat, cough, [...] discuss. Written instructions provided to patient via [employer] If you have any questions please call [phone] _ Normal [facility] Rita 04-03-2024 [facility] Telephone (MILLIEA) ----- ANDREW BARROS ([id number]) 1945 F Date Time Provider Department 04/03/24 KEVIN BRANDON During your visit today, we recorded the following information about you: Kevin Brandon RN 04/03/2024 3:44 PM Signed Call received from Agata Rutledgez (Rosenda), patients daughter, with multiple questions regarding [...] confirmed correct in the demographics tab JARRET Sun Tracy C 04/06/2024 10:09 AM Signed Left message on voicemail for Rosenda to call and schedule Sachin Marsh 04/08/2024 10:46 AM Signed Left message on voicemail for Rosenda to call and schedule Allergies As of Date: 04/03/2024 Noted Allergy Reaction [id number] REDUCTASE INHIBIT*01/21/2018 16 - Unknown Comments: Other [...] Encounter Status:Closed by SACHIN MARSH on 04/08/24 [facility] ANDREW BARROS ([id number]) 1945 F Date Time Provider Department 04/02/24 SANDEEP LENZ IR[facility]V During your visit today, we recorded the following information about you: Ashlie Mendez 04/02/2024 10:51 AM Signed RADIOLOGY CALL CENTER INTAKE DATE: 04/02/2024 TIME: 10:49am REQUESTING STAFF: Sandeep Lenz MD PHONE/PAGER: [phone] SPECIFICS OF THE REQUEST: Renal Biopsy SPECIAL REQUESTS: TISSUE SAMPLE, LABWORK: N/A IS THIS REQUEST PART OF A RESEARCH PROTOCOL: No MEDICAL DIAGNOSIS: MGUS (monoclonal gammopathy of unknown significance) TYPE AND DATE OF THE EXAM THAT IS THE BASIS OF THE REQUEST: PET 03/20/2024 IMAGING: [facility] Note to all persons requesting biopsies: All biopsy requests will be scheduled as quickly as possible, based on the clinical urgency, availability of appointment times, the need to hold anti-thrombolytic therapy (aspirin, blood thinners) and the patient?s schedule, including the need for an available jukebox route driver. If a percutaneous biopsy or drainage is not felt to be safe or an alternative method for establishing a diagnosis is possible, this will be discussed directly with the requesting physician. Karla Felix RN 04/03/2024 5:51 PM Addendum Random [place] [facility] Biopsy is Approved to be Done [...] medications for this visit. ALLERGIES Allergen Reactions Cminlwc-Tnh-Yqj Red* Unknown Other reaction(s): AOF FILMS SENT TO WORKSTATION: GUIDELINES FOR HOLDING ANTI-PLATELET AND ANTI- COAGULATION THERAPY: Xarelto. This should be held 2 Doses prior to biopsy. NURSE SIGNATURE: Karla Alston RN DATE: April 02, 2024 TIME: 11:35 AM Lulu Mejia 04/06/2024 1:10 PM Signed Spoke to Pt and daughter. Scheduled 04/16 1100am. Pt order built in edo As of Date: 04/02/2024 Noted Allergy Reaction DCEUOAD-AEP-NUL REDUCTASE INHIBIT*01/21/2018 16 - Unknown Comments: Other [...] mg by mout (more content not included)... [facility] 04-01-2024 CNPN Telephone ([facility]) ----- ANDREW BARROS ([id number]) 1945 F Date Time Provider Department 04/01/24 SANDEEP LENZ [facility] During your visit today, we recorded the following information about you: Jatinder Hooper 04/01/2024 3:26 PM Signed Sandeep Lenz MD [facility] Clerical Pool; [facility] Triage Pool Hello - entered orders for kidney biopsy for MGUS. Also may need to see a conversion worker to consider a EGD for the PET [...] Ashlie Lugo Tiffany23 hours ago (10:51 AM) JIL Just sent the triage to [facility] also Sachin Huffman 04/03/2024 12:47 PM Signed Left message on voicemail for patient to call and schedule Sachin Marsh 04/03/2024 12:48 PM Signed Left message on voicemail for patient to call and schedule Jatinder Hooper 04/08/2024 10:56 AM Signed Elio stephenson can you please call Dtr to see if she will be able to schedule appt Sachin Marsh Kenney 04/08/2024 11:15 AM Signed I did call the daughter Jatinder Malik 04/08/2024 11:17 AM Signed Patient and family have been called X 3 for scheduling EGD... just FYI Allergies As of Date: 04/01/2024 Noted Allergy Reaction DUBCDNZ-URN-QEB REDUCTASE INHIBIT*01/21/2018 16 - Unknown Comments: Other reaction(s): AOF Date Reviewed: 02/24/2024 Reviewed by: Arabella Cotter MA - Fully Assessed Reason for Visit: Appointment Confirmation [3505] Primary Visit Diagnosis:Abnormal gastrointestinal PET scan [R94.8] Other Visit Diagnosis:Gastritis, presence of bleeding unspecified, unspecified chronicity, unspecified gastritis type [K29.70] Order(s):EGD DIAGNOSTIC [GI9] Order #: [id number] FUTURE Prescriptions as of 04/21/2024 - anastrozole [...] Encounter Status:Closed by JATINDER HOOPER on 04/21/24 [facility] 03-27-2024 [facility] ANDREW BARROS ([id number]) 1945 F Date Time Provider Department 03/27/24 [facility] During your visit today, we recorded the following information about you: Geneva Nichols [facility] 03/27/2024 10:56 AM Signed -------- Sandeep Lenz MD [facility] Clerical Pool; [facility] Triage Pool Hello - entered orders for kidney biopsy for MGUS. Also may need to see a conversion worker to consider a EGD for the PET results showing distal gastric uptake. Referral for this placed also. Geneva Nichols [facility] 03/27/2024 11:47 AM Signed I called and spoke with the Patient's granddaughter. I am waiting on a call back from the Patient to see if the Patient would like to be scheduled with Gastro either in the [facility] or locally here in [place]. Jatinder Mary RN 03/27/2024 3:11 PM Signed ----- Message from Sandeep Lenz MD sent at 03/26/2024 10:45 AM EDT ----- Elio LeeAndrew - your PET CT didn't show any hole or lytic lesions in the bones. So I think we should plan to do a kidney biopsy to determine the imapct of your abnormal protein on the kidneys. Allergies As of Date: 03/27/2024 Noted Allergy Reaction WXMABBR-FMV-WLW REDUCTASE INHIBIT*01/21/2018 16 - Unknown Comments: Other [...] Status:Closed by GENEVA NICHOLS on 06/10/24 Normal [facility] PET+CT Whole body Bone W 18F [...] any questions regarding this interpretation, please call [phone]. If you are unable to reach us at the number above, please feel free to contact [facility] eRadiology at [phone]. DIVISION OF RADIOLOGY * * *Final Report* [...] * Radiopharmaceutical Activity: 6.6 mCi * Radiopharmaceutical: U47-Tpcrwqlhqizcghmonp (FDG) * All reported standardized uptake values represent maximum SUV (SUVmax) per body weight, unless otherwise specified. COMPARISON: No previous FDG PET/CT available CORRELATION: No relevant imaging available RESULT: REFERENCES: SUV reference values: * Blood pool (descending aorta) activity: SUVmax 2.8 * Background liver activity: SUVmax 3.3 Lace Roller (topogram) images: No additional findings. Notes and [...] No abnormal uptake. DIVISION OF RADIOLOGY Provider, Nahomy Leonardo [facility] - 03/25/2024 * * *Final Report* * [...] * Radiopharmaceutical Activity: 6.6 mCi * Radiopharmaceutical: Q07-Tejvqbxyrtpugbpqej (FDG) * All reported standardized uptake values represent maximum SUV (SUVmax) per body weight, unless otherwise specified. COMPARISON: No previous FDG PET/CT available CORRELATION: No relevant imaging available RESULT: REFERENCES: SUV reference values: * Blood pool (descending aorta) activity: SUVmax 2.8 * Background liver activity: SUVmax 3.3 Lace Roller (topogram) images: No additional findings. Notes and [...] any questions regarding this interpretation, please call [phone]. (more content not included)... [facility] PET+CT Whole body Bone W 18F -NaF IVOrdered By: [facility] Provider on 03-25-2024 [facility] GLUCOSE, BLOOD (POC)on 03-20 Glucose [Mass/Vol] 122 mg/dL Abnormal 74 - 99 mg/dL [facility] Comment on above: Location:[facility], [address] [place] [address] , [place], [place], [facility] The Accu-Chek Inform II glucose meter has [...] Interpretation and review of laboratory results Abnormal [facility] NM PET/CT WHOLE BODY INITon 03-20-2024 [...] * Radiopharmaceutical Activity: 6.6 mCi * Radiopharmaceutical: G12-Volqspbsqovcnrwwao (FDG) * All reported standardized uptake values represent maximum SUV (SUVmax) per body weight, unless otherwise specified. COMPARISON: No previous FDG PET/CT available CORRELATION: No relevant imaging available RESULT: REFERENCES: SUV reference values: * Blood pool (descending aorta) activity: SUVmax 2.8 * Background liver activity: SUVmax 3.3 Lace Roller (topogram) images: No additional findings. Notes and [...] any questions regarding this interpretation, please call [phone]. If you are unable to reach us at the number above, please feel free to contact [facility] eRadiology at [phone]. [id number] Normal [facility] PET+CT Whole body Bone W 18F -NaF Carmen 03-20-2024 Radiology Study observation (narrative) [facility] ANDREW BARROS ([id number]) 1945 F Date Time Provider Department 03/04/24 SANDEEP LENZ [facility] During your visit today, we recorded the following information about you: Kira AdriaJennifer 03/04/2024 1:[address] Perry: Patient had labs drawn on 02/25. Patient was scheduled for a phone visit with you on 03/17. We have rescheduled this phone visit to 03/24. Thank You, Jennifer Malone Pss Sandeep Lenz MD 03/06/2024 10:34 AM Signed Looks like [...] for Andrew informing her of this date/time. Thanks, Shasta Peacock Allergies As of Date: 03/04/2024 Noted Allergy Reaction QGIDTAV-GWR-NFP REDUCTASE INHIBIT*01/21/2018 16 - Unknown Comments: Other reaction(s): AOF Date Reviewed: 02/24/2024 Reviewed by: Arabella Cotter MA - Fully Assessed Primary Visit Diagnosis:Multiple myeloma not having achieved remission (HCC) [C90.00] Order(s):NM PET/CT WHOLE BODY INITIAL [6306208] Order #: [id number] FUTURE Prescriptions as of 03/06/2024 - anastrozole [...] Status:Closed by JENNIFER OTERO on 03/04/24 Normal [facility] MONOCLONAL PROT 24 UR W/INTE RPon 02-26-2024 INTERPRETATION (UMPA) An atypical restri cted band is present in the kappa region. 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 Normal [facility] Comment on above: Order Comment: Speci men Type: URINE SPECIMENOrdering Facility: [facility] Address: [address] [place] [address] Performed By: #### U 24MPA ####[facility] LABCLIA [id number] [address] [place] STAFF REVIEW (UMPA) Reviewed by Dr. Maria G Keane MD Normal [facility] Comment on above: Order Comment: Speci men Type: URINE SPECIMENOrdering Facility: [facility] Address: [address] [place] [address] Performed By: #### U 24MPA ####[facility] LABIA [id number] [address] [place] UMPA RESULT M protein is present. Abnormal No M protein is identified. [facility] Comment on above: Order Comment: Speci men Type: URINE SPECIMENOrdering Facility: [facility] Address: [address] [place] [address] Performed By: #### U 24MPA ####[facility] LABIA [id number] [place] [address] [place] PROT ELEC UR 24HR W/M SPIKE (P)on 02-26-2024 Albumin/Globulin Elph (24H U) [Mass ratio] 59.87 % Normal [facility] Comment on above: Order Comment: Speci men Type: URINE SPECIMENOrdering Facility: [facility] Address: [address] [place] [address] Performed By: #### L [id number] ####[facility] LABIA [id number] [place] [address] [place] Alpha 1 globulin Elph (24H U) [Mass fraction] 3.80 % Normal [facility] Comment on above: Order Comment: Speci men Type: URINE SPECIMENOrdering Facility: [facility] Address: [address] [place] [address] Performed By: #### L [id number] ####[facility] LABCLIA [id number] [place] [address] [place] Alpha 2 globulin Elph (24H U) [Mass fraction] 8.65 % Normal [facility] Comment on above: Order Comment: Speci men Type: URINE SPECIMENOrdering Facility: [facility] Address: [address] [place] [address] Performed By: #### L [id number] ####[facility] LABCLIA [id number] [place] [address] [place] Beta globulin Elph (24H U) [Mass fraction] 14.92 % Normal [facility] Comment on above: Order Comment: Speci men Type: URINE SPECIMENOrdering Facility: [facility] Address: [address] [place] [address] Performed By: #### L [id number] ####[facility] LABCLIA [id number] [place] [address] [place] Gamma globulin Elph (24H U) [Mass fraction] 12.75 % Normal [facility] Comment on above: Order Comment: Speci men Type: URINE SPECIMENOrdering Facility: [facility] Address: [address] [place] [address] Performed By: #### L [id number] ####[facility] LABIA [id number] [place] [address] [place] INTERPRETATION COMMENT FOR PROTEIN ELECTROPHORESIS See separate immunofixation report for characterization of monoclonal gammopathy. Normal [facility] Comment on above: Order Comment: Speci men Type: URINE SPECIMENOrdering Facility: [facility] Address: [address] [place] [address] Performed By: #### L [id number] ####[facility] LABCLIA [id number] [place] [address] [place] Protein Fractions Elph Elie (24H U) [Interp] An M protein is identified on protein electrophoresis. Abnormal No definitive M protein is identified on protein electrophor esis. [facility] Comment on above: Order Comment: Speci men Type: URINE SPECIMENOrdering Facility: [facility] Address: [address] [place] [address] Performed By: #### L [id number] ####[facility] LABCLIA [id number] [place] [address] [place] Protein.monoclonal Elph (24H U) [Mass/Time] 0.04 g/24hr Normal [facility] Comment on above: Order Comment: Speci men Type: URINE SPECIMENOrdering Facility: [facility] Address: [address] [place] [address] Performed By: #### L [id number] ####[facility] LABCLIA [id number] [address] OF [place] STAFF REVIEW (UEPG24) Reviewed by Dr. Sa grace Keane MD Normal [facility] Comment on above: Order Comment: Speci men Type: URINE SPECIMENOrdering Facility: [facility] Address: [address] [place] [address] Performed By: #### L [id number] ####[facility] LABCLIA [id number] [place] [address] [place] Prot 24h Ur-mRateon 02-26-20 24 Protein (24H U) [Mass/Time] 0.73 g/24 Hr High <0.15 [facility] Comment on above: Order Comment: Speci men Type: URINE SPECIMENOrdering Facility: [facility] Address: [address] [place] [address] Result Comment: Adul t Proteinuria Categories: <0.15 g/24 hours is considered normal to mildly increased 0.15 - 0.50 g/24 hours is considered moderately increased >0.50 g/24 hours is considered severely increased KDIGO. (2013). KDIGO 2012 Clinical Practice Guideline for the Evaluation and Management of Chronic Kidney Disease. Official Journal of the International Society of Nephrology, 3(1), 1-150. Performed By: #### 2 889-4 ####[facility] LABCLIA [id number] [address] LABCLIA [id number] [place] [address] Protein (24H U) [Mass/Time]o n 02-26-2024 PERIOD (HRS) 24 hr Normal [facility] Comment on above: Order Comment: Speci men Type: URINE SPECIMENOrdering Facility: [facility] Address: [address] [place] [address] Performed By: #### 2 889-4 ####[facility] LABCLIA [id number] [address] LABCLIA [id number] [place] [address] Specimen volume (24H U) 1.3 L Normal [facility] Comment on above: Order Comment: Speci men Type: URINE SPECIMENOrdering Facility: [facility] Address: [address] [place] [address] Performed By: #### 2 889-4 ####[facility] LABCLIA [id number] [address] LABCLIA [id number] [place] 8[address]170 B2 Microglob SerPl-mCncon Esub-4-Savhuwkuxelty [Mass/Vol] 5.1 ug/mL High <3.1 [facility] Comment on above: Order Comment: Speci men Type: BLOOD SPECIMEN Ordering Facility: [facility] Address: [address] [place] [address] Result Comment: Beta -2 Microglobulin test is performed using the [employer] immunoturbidimetric method. Results obtained with different methods or kits cannot be used interchangeably. Performed By: #### 1 952-1, 2885-2 #### [facility] LAB CLIA [id number] [address] [place] [address] [place] CBC W Auto Differential pane l (Bld)on 02-24-2024 Basophils (Bld) [#/Vol] 0.06 10*3/uL Normal <0.11 [facility] Comment on above: Order Comment: Speci men Type: BLOOD SPECIMENOrdering Facility: [facility] Address: [address] [place] [address] Performed By: #### 5 7021-8 ####[facility] LABCLIA [id number] [place] [address] Basophils/100 WBC (Bld) 0.6 % Normal [facility] Comment on above: Order Comment: Speci men Type: BLOOD SPECIMENOrdering Facility: [facility] Address: [address] [place] [address] Performed By: #### 5 7021-8 ####[facility] LABCLIA [id number] [place] [address] Differential cell count method Nom (Bld) Auto Normal [facility] Comment on above: Order Comment: Speci men Type: BLOOD SPECIMENOrdering Facility: [facility] Address: [address] [place] [address] Performed By: #### 5 7021-8 ####[facility] LABCLIA [id number] [place] [address] Eosinophils (Bld) [#/Vol] 0.18 10*3/uL Normal <0.46 [facility] Comment on above: Order Comment: Speci men Type: BLOOD SPECIMENOrdering Facility: [facility] Address: [address] [place] [address] Performed By: #### 5 7021-8 ####[facility] LABCLIA [id number] [place] [address] Eosinophils/100 WBC (Bld) 1.8 % Normal [facility] Comment on above: Order Comment: Speci men Type: BLOOD SPECIMENOrdering Facility: [facility] Address: [address] [place] [address] Performed By: #### 5 7021-8 ####[facility] LABCLIA [id number] [place] [address] Erythrocyte distribution width (RBC) [Ratio] 13.1 % Normal 11.5-15.0 [facility] Comment on above: Order Comment: Speci men Type: BLOOD SPECIMENOrdering Facility: [facility] Address: [address] [place] [address] Performed By: #### 5 7021-8 ####[facility] LABCLIA [id number] [place] [address] Hematocrit (Bld) [Volume fraction] 42.2 % Normal 36.0-46.0 [facility] Comment on above: Order Comment: Speci men Type: BLOOD SPECIMENOrdering Facility: [facility] Address: [address] [place] [address] Performed By: #### 5 7021-8 ####[facility] LABCLIA [id number] [place] [address] Hemoglobin (Bld) [Mass/Vol] 13.6 g/dL Normal 11.5-15.5 [facility] Comment on above: Order Comment: Speci men Type: BLOOD SPECIMENOrdering Facility: [facility] Address: [address] [place] [address] Performed By: #### 5 7021-8 ####[facility] LABCLIA [id number] [place] [address] Immature granulocytes (Bld) [#/Vol] 0.04 10*3/uL Normal <0.10 [facility] Comment on above: Order Comment: Speci men Type: BLOOD SPECIMENOrdering Facility: [facility] Address: [address] [place] [address] Performed By: #### 5 7021-8 ####[facility] LABCLIA [id number] [place] [address] Immature granulocytes/100 WBC (Bld) 0.4 % Normal [facility] Comment on above: Order Comment: Speci men Type: BLOOD SPECIMENOrdering Facility: [facility] Address: [address] [place] [address] Performed By: #### 5 7021-8 ####[facility] LABCLIA [id number] [place] [address] Lymphocytes (Bld) [#/Vol] 1.11 10*3/uL Normal 1.00-4.00 [facility] Comment on above: Order Comment: Speci men Type: BLOOD SPECIMENOrdering Facility: [facility] Address: [address] [place] [address] Performed By: #### 5 7021-8 ####[facility] LABCLIA [id number] [place] [address] Lymphocytes/100 WBC (Bld) 11.4 % Normal [facility] Comment on above: Order Comment: Speci men Type: BLOOD SPECIMENOrdering Facility: [facility] Address: [address] [place] [address] Performed By: #### 5 7021-8 ####[facility] LABCLIA [id number] [place] [address] MCH (RBC) [Entitic mass] 29.5 pg Normal 26.0-34.0 [facility] Comment on above: Order Comment: Speci men Type: BLOOD SPECIMENOrdering Facility: [facility] Address: [address] [place] [address] Performed By: #### 5 7021-8 ####[facility] LABCLIA [id number] [place] [address] MCHC (RBC) [Mass/Vol] 32.2 g/dL Normal 30.5-36.0 [facility] Comment on above: Order Comment: Speci men Type: BLOOD SPECIMENOrdering Facility: [facility] Address: [address] [place] [address] Performed By: #### 5 7021-8 ####[facility] LABCLIA [id number] [place] [address] MCV (RBC) [Entitic vol] 91.5 fL Normal 80.0-100.0 [facility] Comment on above: Order Comment: Speci men Type: BLOOD SPECIMENOrdering Facility: [facility] Address: [address] [place] [address] Performed By: #### 5 7021-8 ####[facility] LABCLIA [id number] [place] [address] Monocytes (Bld) [#/Vol] 1.00 10*3/uL High <0.87 [facility] Comment on above: Order Comment: Speci men Type: BLOOD SPECIMENOrdering Facility: [facility] Address: [address] [place] [address] Performed By: #### 5 7021-8 ####[facility] LABCLIA [id number] [place] [address] Monocytes/100 WBC (Bld) 10.3 % Normal [facility] Comment on above: Order Comment: Speci men Type: BLOOD SPECIMENOrdering Facility: [facility] Address: [address] [place] [address] Performed By: #### 5 7021-8 ####[facility] LABCLIA [id number] [place] [address] Neutrophils (Bld) [#/Vol] 7.34 10*3/uL Normal 1.45-7.50 [facility] Comment on above: Order Comment: Speci men Type: BLOOD SPECIMENOrdering Facility: [facility] Address: [address] [place] [address] Performed By: #### 5 7021-8 ####[facility] LABCLIA [id number] [place] [address] Neutrophils/100 WBC (Bld) 75.5 % Normal [facility] Comment on above: Order Comment: Speci men Type: BLOOD SPECIMENOrdering Facility: [facility] Address: [address] [place] [address] Performed By: #### 5 7021-8 ####[facility] LABCLIA [id number] [place] [address] Nucleated RBC (Bld) [#/Vol] 10*3/uL Normal <0.01 [facility] Comment on above: Order Comment: Speci men Type: BLOOD SPECIMENOrdering Facility: [facility] Address: [address] [place] [address] Performed By: #### 5 7021-8 ####[facility] LABCLIA [id number] [place] [address] Nucleated RBC/100 WBC (Bld) [Ratio] 0.0 /100 WBC Normal [facility] Comment on above: Order Comment: Speci men Type: BLOOD SPECIMENOrdering Facility: [facility] Address: [address] [place] [address] Performed By: #### 5 7021-8 ####[facility] LABCLIA [id number] [place] [address] Platelet mean volume (Bld) [Entitic vol] 10.8 fL Normal 9.0-12.7 [facility] Comment on above: Order Comment: Speci men Type: BLOOD SPECIMENOrdering Facility: [facility] Address: [address] [place] [address] Performed By: #### 5 7021-8 ####[facility] LABCLIA [id number] [place] [address] Platelets (Bld) [#/Vol] 285 10*3/uL Normal 150-400 [facility] Comment on above: Order Comment: Speci men Type: BLOOD SPECIMENOrdering Facility: [facility] Address: [address] [place] [address] Performed By: #### 5 7021-8 ####[facility] LABCLIA [id number] [place] [address] RBC (Bld) [#/Vol] 4.61 10*6/uL Normal 3.90-5.20 [facility] Comment on above: Order Comment: Speci men Type: BLOOD SPECIMENOrdering Facility: [facility] Address: [address] [place], [place] [address] [address] Performed By: #### 5 7021-8 ####[facility] LABCLIA [id number] [place] [address] WBC (Bld) [#/Vol] 9.73 10*3/uL Normal 3.70-11.00 [facility] Comment on above: Order Comment: Speci men Type: BLOOD SPECIMENOrdering Facility: [facility] Address: [address] [place] [address] Performed By: #### 5 7021-8 ####[facility] LABCLIA [id number] [place] [address] CNOVSPon 02-24-2024 CNOVSP Visit (SP) Office ([place]) ----- ANDREW BARROS ([id number]) 1945 F Date Time Provider Department 02/24/24 11:30 AM SANDEEP LENZ During your visit today, we recorded the following information about you: Temperature Pulse Respiration Blood pressure 97.3 degrees 63/minute 16/minute 155/77 Weight Height 61.1 kg 1.602 m Sandeep Lenz MD 02/24/2024 7:22 PM Signed NAME: Andrew Barros CLINIC NO.: [id number] DATE OF SERVICE: February 24, 2024 (Eduardo) Some elements in this clinic note that are critical to medical decision making have been carefully reviewed and included from a prior clinic note dated: November 25, 2023 (Eduardo) Referring Provider: Eduardo Sharpe Additional Clinicians involved in Andrew Barros's care: DIAGNOSIS: History of Breast Cancer ASSESSMENT: 78 year old woman with Left breast upper outer quadrant, invasive ductal carcinoma, ER postive, WI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 01/04/2021 - Mammograms at [facility] Bi-Rads 2 benign. 09/26/2018 - Started arimidex 09/10/2018 - Completed radiation 06/05/2018 - L breast lumpectomy and SNB Updated Visit, February 24, 2024: Presents with daughter Sugey and was found to have an M-spike by her appeals representative, Dr. Rojo. We discussed potential diagnoses and [...] this time (more content not included)... Normal [facility] Calcium.ionized [Moles/Vol]o n 02-24-2024 Calcium.ionized (Bld) [Mass/Vol] 1.33 mmol/L High 1.08 - 1.30 mmol/L [facility] Calcium.ionized adjusted to pH 7.4 (Bld) [Moles/Vol] 1.31 mmol/L High 1.08 - 1.30 mmol/L [facility] Interpretation and review of laboratory results Abnormal [facility] Calcium.ionized (Bld) [Mass/Vol] 1.33 mmol/L High 1.08-1.30 [facility] Comment on above: Order Comment: Speci men Type: BLOOD SPECIMENOrdering Facility: [facility] Address: [address] [place] [address] Performed By: #### 1 995-0 ####[facility] LABIA [id number] [place] [address] [place] Calcium.ionized adjusted to pH 7.4 (Bld) [Moles/Vol] 1.31 mmol/L High 1.08-1.30 [facility] Comment on above: Order Comment: Speci men Type: BLOOD SPECIMENOrdering Facility: [facility] Address: [address] [place] [address] Performed By: #### 1 995-0 ####[facility] LABIA [id number] [place] [address] [place] Calcium.ionized (Bld) [Mass/Vol] 1.30 mmol/L Normal 1.08-1.30 [facility] Comment on above: Order Comment: Speci men Type: BLOOD SPECIMENOrdering Facility: [facility] Address: [address] [place] [address] Performed By: #### 1 995-0 ####[facility] LABIA [id number] [place] [address] [place] Calcium.ionized adjusted to pH 7.4 (Bld) [Moles/Vol] 1.31 mmol/L High 1.08-1.30 [facility] Comment on above: Order Comment: Speci men Type: BLOOD SPECIMENOrdering Facility: [facility] Address: [address] [place] [address] Performed By: #### 1 995-0 ####[facility] LABCLIA [id number] [place] [id number] [facility] [place] Cancer Ag27-29 SerPl-aCncon 02-24-2024 Cancer Ag 27-29 Qn 12.7 [arb'U]/mL Normal <38.6 [facility] Comment on above: Order Comment: Speci men Type: BLOOD SPECIMENOrdering Facility: [facility] Address: [address] [place] [address] Result Comment: The CA27.29 test was performed using the Siemens Wonder Works Mediaaur XP chemiluminometric immunoassay method. Results obtained with different assay methods or kits cannot be used interchangeably. Performed By: #### 1 7842-6 ####[facility] LABCLIA [id number] [address] OF [facility] Comprehensive metabolic 2000 panelon 02-24-2024 Albumin [Mass/Vol] 4.4 g/dL Normal 3.9-4.9 [facility] Comment on above: Order Comment: Speci men Type: BLOOD SPECIMENOrdering Facility: [facility] Address: [address] [place] [address] Performed By: #### 2 4323-8 ####[facility] LABCLIA [id number] [place] [address] ALP [Catalytic activity/Vol] 97 U/L Normal 34-123 [facility] Comment on above: Order Comment: Speci men Type: BLOOD SPECIMENOrdering Facility: [facility] Address: [address] [place] [address] Performed By: #### 2 4323-8 ####[facility] LABCLIA [id number] [place] [address] ALT [Catalytic activity/Vol] 12 U/L Normal 7-38 [facility] Comment on above: Order Comment: Speci men Type: BLOOD SPECIMENOrdering Facility: [facility] Address: [address] [place] [address] Performed By: #### 2 4323-8 ####[facility] LABCLIA [id number] [place] [address] Anion gap [Moles/Vol] 12 mmol/L Normal 9-18 [facility] Comment on above: Order Comment: Speci men Type: BLOOD SPECIMENOrdering Facility: [facility] Address: [address] [place] [address] Performed By: #### 2 4323-8 ####[facility] LABCLIA [id number] [place] [address] AST [Catalytic activity/Vol] 18 U/L Normal 13-35 [facility] Comment on above: Order Comment: Speci men Type: BLOOD SPECIMENOrdering Facility: [facility] Address: [address] [place] [address] Performed By: #### 2 4323-8 ####[facility] LABCLIA [id number] [place] [address] Bilirubin [Mass/Vol] 0.3 mg/dL Normal 0.2-1.3 [facility] Comment on above: Order Comment: Speci men Type: BLOOD SPECIMENOrdering Facility: [facility] Address: [address] [place] [address] Performed By: #### 2 4323-8 ####[facility] LABCLIA [id number] [place] [address] Calcium [Mass/Vol] 11.0 mg/dL High 8.5-10.2 [facility] Comment on above: Order Comment: Speci men Type: BLOOD SPECIMENOrdering Facility: [facility] Address: [address] [place], [place] [address] Performed By: #### 2 4323-8 ####[facility] LABCLIA [id number] [place] [address] Chloride [Moles/Vol] 102 mmol/L Normal 97-105 [facility] Comment on above: Order Comment: Speci men Type: BLOOD SPECIMENOrdering Facility: [facility] Address: [address] [place] [address] Performed By: #### 2 4323-8 ####[facility] LABCLIA [id number] [place] [address] CO2 [Moles/Vol] 28 mmol/L Normal 22-30 [facility] Comment on above: Order Comment: Speci men Type: BLOOD SPECIMENOrdering Facility: [facility] Address: [address] [place] [address] Performed By: #### 2 4323-8 ####[facility] LABCLIA [id number] [place] [address] Creatinine [Mass/Vol] 1.67 mg/dL High 0.58-0.96 [facility] Comment on above: Order Comment: Speci men Type: BLOOD SPECIMENOrdering Facility: [facility] Address: [address] [place] [address] Performed By: #### 2 4323-8 ####[facility] LABCLIA [id number] [place] [address] Creatinine and Glomerular filtration rate.predicted panel (S/P/Bld) 31 mL/min/1.73m??? Low >=60 [facility] Comment on above: Order Comment: Speci men Type: BLOOD SPECIMENOrdering Facility: [facility] Address: [address] [place] [address] Result Comment: Sugar mated Glomerular Filtration Rate [...] actual GFR. Performed By: #### 2 4323-8 ####[facility] LABCLIA [id number] [place] [address] Glucose [Mass/Vol] 187 mg/dL High 74-99 [facility] Comment on above: Order Comment: Speci men Type: BLOOD SPECIMENOrdering Facility: [facility] Address: [address] [place], [place] [address] Result Comment: The [place] Diabetes Association (ADA) provides guidance for cutoff [...] Standards of Medical Care in Diabetes 2016, [place] [employer] Association. Diabetes Care. 2016.39(Suppl 1). Performed By: #### 2 4323-8 ####[facility] LABCLIA [id number] [place] [address] Potassium [Moles/Vol] 4.8 mmol/L Normal 3.7-5.1 [facility] Comment on above: Order Comment: Speci men Type: BLOOD SPECIMENOrdering Facility: [facility] Address: [address] [place], [place] [address] Performed By: #### 2 4323-8 ####[facility] LABCLIA [id number] [place] [address] Protein [Mass/Vol] 8.1 g/dL High 6.3-8.0 [facility] Comment on above: Order Comment: Speci men Type: BLOOD SPECIMENOrdering Facility: [facility] Address: [address] [place], [place] [address] Performed By: #### 2 4323-8 ####[facility] LABCLIA [id number] [place] [address] Sodium [Moles/Vol] 142 mmol/L Normal 136-144 [facility] Comment on above: Order Comment: Speci men Type: BLOOD SPECIMENOrdering Facility: [facility] Address: [address] [place] [address] Performed By: #### 2 4323-8 ####[facility] LABCLIA [id number] [place] [address] Urea nitrogen [Mass/Vol] 38 mg/dL High 7-21 [facility] Comment on above: Order Comment: Speci men Type: BLOOD SPECIMENOrdering Facility: [facility] Address: [address] [place] [address] Performed By: #### 2 4323-8 ####[facility] LABCLIA [id number] [place] [address] IMMUNOFIXATION SCREEN, SERUM on 02-24-2024 INTERPRETATION (MPA) Atypical restricted bands are present in the IgM and kappa regions. Consistent with IgM kappa monoclonal gammopathy. Normal [facility] Comment on above: Order Comment: Speci men Type: BLOOD SPECIMENOrdering Facility: [facility] Address: [address] [place] [address] Performed By: #### I FESC ####[facility] LABCLIA [id number] [address] [place] MPA RESULT M protein is present. Abnormal No M protein is identified. [facility] Comment on above: Order Comment: Speci men Type: BLOOD SPECIMENOrdering Facility: [facility] Address: [address] [place] [address] Performed By: #### I FESC ####[facility] LABCLIA [id number] [place] [id number] [facility] [place] STAFF REVIEW (MPA) Reviewed by Dr. Maria G Keane MD Normal [facility] Comment on above: Order Comment: Speci men Type: BLOOD SPECIMENOrdering Facility: [facility] Address: [address] [place] [address] Performed By: #### I FESC ####[facility] LABCLIA [id number] [place] [id number] [place] IMMUNOGLOBULINS,IGG,IGA,IGMo n 02-24-2024 IgA [Mass/Vol] 302 mg/dL Normal 70-400 [facility] Comment on above: Order Comment: Speci men Type: BLOOD SPECIMENOrdering Facility: [facility] Address: [address] [place] [address] Performed By: #### S ERIMM ####[facility] LABCLIA [id number] [place] [address] [place] IgG [Mass/Vol] 796 mg/dL Normal 700-1600 [facility] Comment on above: Order Comment: Speci men Type: BLOOD SPECIMENOrdering Facility: [facility] Address: [address] [place] [address] Performed By: #### S ERIMM ####[facility] LABCLIA [id number] [place] [address] [place] IgM [Mass/Vol] 426 mg/dL High 40-230 [facility] Comment on above: Order Comment: Speci men Type: BLOOD SPECIMENOrdering Facility: [facility] Address: [address] [place] [address] Performed By: #### S ERIMM ####[facility] LABCLIA [id number] [place] [address] [place] KAPPA/DIAZ,FREE,SERon 2023 Immunoglobulin light chains.kappa.free (S) [Mass/Vol] 54.7 mg/L High 3.3-19.4 [facility] Comment on above: Order Comment: Speci men Type: BLOOD SPECIMENOrdering Facility: [facility] Address: [address] [place] [address] Result Comment: Rare ly, increased serum free light chains levels may not be detected or accurately quantified due to prozone phenomenon or in high viscosity samples using this immunoturbidimetric assay. Correlation with other laboratory results and clinical findings is recommended. The [place] Free Light Chain was performed using the Binding Site Optilite immunoturbidimetric method. Result obtained with different assay methods or kits cannot be used interchangeably. Performed By: #### K LFRS ####[facility] LABIA [id number] [place] [address] [place] Immunoglobulin light chains.kappa/Immunoglo bulin light chains.lambda (S) [Mass ratio] 2.31 High 0.26-1.65 [facility] Comment on above: Order Comment: Speci men Type: BLOOD SPECIMENOrdering Facility: [facility] Address: [address] [place] [address] Performed By: #### K LFRS ####[facility] [id number] [place] [address] [place] Immunoglobulin light chains.lambda.free [Mass/Vol] 23.7 mg/L Normal 5.7-26.3 [facility] Comment on above: Order Comment: Speci men Type: BLOOD SPECIMENOrdering Facility: [facility] Address: [address] [place] [address] Result Comment: Rare ly, increased serum free [...] used interchangeably. Performed By: #### K LFRS ####[facility] LABIA [id number] [place] [address] [place] LACTATE DEHYDROGENASEOrdered By: Denton Thomas on 02-24-2024 LDH [Catalytic activity/Vol] 209 U/L 135 - 214 U/L [facility] LDH SerPl-cCncon 02-24-2024 LDH [Catalytic activity/Vol] 209 U/L Normal 135-214 [facility] Comment on above: Order Comment: Speci men Type: BLOOD SPECIMENOrdering Facility: [facility] Address: [address] [place] [address] Performed By: #### 3 084-1, 2777-1, 2532-0 ####[facility] LABCLIA [id number] [place] [address] LDH [Catalytic activity/Vol] Ordered By: Denton Thomas on 02-24-2024 Interpretation and review of laboratory results Normal [facility] PHOSPHORUS INORGANICon 02-23 Phosphate [Mass/Vol] 2.7 mg/dL 2.7 - 4 .8 mg/dL [facility] PROTEIN ELECTROPHORESIS SERU M (P)on 02-24-2024 Albumin [Mass/Vol] 3.98 g/dL Normal 3.43-5.41 [facility] Comment on above: Order Comment: Speci men Type: BLOOD SPECIMENOrdering Facility: [facility] Address: [address] [place] [address] Performed By: #### L [id number] ####[facility] LABCLIA [id number] [place] [address] [place] Alpha 1 globulin Elph [Mass/Vol] 0.42 g/dL Normal 0.18-0.43 [facility] Comment on above: Order Comment: Speci men Type: BLOOD SPECIMENOrdering Facility: [facility] Address: [address] [place] [address] Performed By: #### L [id number] ####[facility] LABCLIA [id number] [place] [address] [place] Alpha 2 globulin Elph [Mass/Vol] 1.05 g/dL High 0.42-0.98 [facility] Comment on above: Order Comment: Speci men Type: BLOOD SPECIMENOrdering Facility: [facility] Address: [address] [place] [address] Performed By: #### L [id number] ####[facility] LABCLIA [id number] [place] [address] [place] Beta globulin Elph [Mass/Vol] 1.18 g/dL High 0.61-1.17 [facility] Comment on above: Order Comment: Speci men Type: BLOOD SPECIMENOrdering Facility: [facility] Address: [address] [place] [address] Performed By: #### L [id number] ####[facility] LABCLIA [id number] [place] [address] [place] Gamma globulin Elph [Mass/Vol] 0.67 g/dL Normal 0.53-1.51 [facility] Comment on above: Order Comment: Speci men Type: BLOOD SPECIMENOrdering Facility: [facility] Address: [address] [place] [address] Performed By: #### L [id number] ####[facility] [id number] [place] [address] [place] INTERPRETATION COMMENT FOR PROTEIN ELECTROPHORESIS Normal [facility] Comment on above: Order Comment: Speci men Type: BLOOD SPECIMENOrdering Facility: [facility] Address: [address] [place] [address] Result Comment: See separate immunofixation report for characterization of monoclonal gammopathy. M protein co-migrates with normal beta fraction. Quantitation of the M protein will overestimate the amount of M protein present. Performed By: #### L [id number] ####[facility] LABIA [id number] [address] [place] M SPIKE CONCENTRATION 2 0.18 g/dL High <=0.00 [facility] Comment on above: Order Comment: Speci men Type: BLOOD SPECIMENOrdering Facility: [facility] Address: [address] [place] [address] Performed By: #### L [id number] ####[facility] LABIA [id number] [address] [place] M-PROTEIN LOCATION Beta Fraction 1 Normal [facility] Comment on above: Order Comment: Speci men Type: BLOOD SPECIMENOrdering Facility: [facility] Address: [address] [place] [address] Performed By: #### L [id number] ####[facility] LABIA [id number] [place] [address] [place] M-PROTEIN LOCATION 2 Gamma Fraction 1 Normal [facility] Comment on above: Order Comment: Speci men Type: BLOOD SPECIMENOrdering Facility: [facility] Address: [address] [place] [address] Performed By: #### L [id number] ####[facility] LABIA [id number] [place] [address] [place] Protein Fractions [Interp] An M protein is identified on protein electrophoresis. Abnormal No definitive M protein is identified on protein electrophor esis. [facility] Comment on above: Order Comment: Speci men Type: BLOOD SPECIMENOrdering Facility: [facility] Address: [address] [place] [address] Performed By: #### L [id number] ####[facility] [id number] [place] [address] [place] Protein.monoclonal Elph [Mass/Vol] 0.53 g/dL High <=0.00 [facility] Comment on above: Order Comment: Speci men Type: BLOOD SPECIMENOrdering Facility: [facility] Address: [address] [place] [address] Performed By: #### L [id number] ####[facility] LABIA [id number] [place] [address] [place] SPE STAFF REVIEW Reviewed by Dr. Maria G Keane MD Normal [facility] Comment on above: Order Comment: Speci men Type: BLOOD SPECIMENOrdering Facility: [facility] Address: [address] [place] [address] Performed By: #### L [id number] ####[facility] LABIA [id number] [place] [address] [place] Phosphate SerPl-mCncon 02-23 Phosphate [Mass/Vol] 2.7 mg/dL Normal 2.7-4.8 [facility] Comment on above: Order Comment: Speci men Type: BLOOD SPECIMENOrdering Facility: [facility] Address: [address] [place] [address] Performed By: #### 3 084-1, 2777-1, 2532-0 ####[facility] LABCLIA [id number] [place] [address] Phosphate [Mass/Vol]on 02-23 Interpretation and review of laboratory results Normal [facility] Prot [facility]2024 Protein [Mass/Vol] 7.3 g/dL Normal 6.3-8.0 [facility] Comment on above: Order Comment: Speci men Type: BLOOD SPECIMEN Ordering Facility: [facility] Address: [address] [place] [address] Performed By: #### 1 952-1, 2885-2 #### [facility] CLIA [id number] [address] [place], [place] [address] [place] URIC ACIDon 02-24-2024 Urate [Mass/Vol] 9.7 mg/dL High 2.5 - 6.6 mg/dL [facility] Urate [facility] Urate [Mass/Vol] 9.7 mg/dL High 2.5-6.6 [facility] Comment on above: Order Comment: Speci men Type: BLOOD SPECIMENOrdering Facility: [facility] Address: [address] [place], [place] [address] Performed By: #### 3 084-1, 2777-1, 2532-0 ####[facility] LABCLIA [id number] [place] [address] Urate [Mass/Vol]on Interpretation and review of laboratory results Abnormal [facility] Office Visiton 02-19-2024 Follow-up visit [id number] Wayne Barros 1945 F Date Provider Department Center 02/19/2024 367-GISSELL HARPER KASHIF Marie Family History Problem Relation Age of Onset Coronary artery disease Mother Coronary artery disease Father Coronary artery disease Sister Coronary artery disease Brother Family Status - Relation Status Age at Mother Father Sister Brother Level of Service:19304 [place] OFFICE/OUTPATIENT ESTABLISHED MOD MDM 30 MIN Normal [facility] CNPNon 02-10-2024 CNPN Telephone ([place]) ----- ANDREW BARROS ([id number]) 1945 F Date Time Provider Department 02/10/24 CLEMENTE SRIVASTAVA During your visit today, we recorded the following information about you: Clemente Srivastava RN 02/10/2024 2:43 PM Signed Pt seen by [facility] appeals representative, (unsure of whom), yesterday. Labs resulted high calcium and high protein. Recommended to see Dr Perry for further workup of cancer. Pt daughter transferred to [facility] to schedule. Lisa: please obtain records/nephrology office visit [place]: ; pt scheduled 02/24/24 for follow up to discuss [facility] 02/11/2024 9:38 AM Signed Records scanned. Allergies As of Date: 02/10/2024 Noted Allergy Reaction [id number] REDUCTASE INHIBIT*01/21/2018 16 - Unknown Comments: Other [...] Status:Closed by CLEMENTE SRIVASTAVA on 02/11/24 Normal [facility] Albumin [Mass/volume] in Ser um or Plasmaon 02-03-2024 Albumin [Mass/Vol] 3.6 g/dL 2.9-4.4 [facility] Casts typing in urine sedime nt by light microscopyon 02-03-2024 Casts LM Nom (Urine sed) NONE SEEN #/LPF NONE SEEN [facility] Erythrocyte distribution wid th Auto (RBC) [Ratio]on 02-03-2024 Erythrocyte distribution width (RBC) [Ratio] 12.8 % 11.0-15.0 [facility] Estimated glomerular filtrat ion rate (GFR) non- Americanon 02-03-2024 GFR/1.73 sq M.predicted among non-blacks MDRD (S/P/Bld) [Vol rate/Area] 30 mL/min/{1.73_m2} >=60 [facility] Hematocrit Auto (Bld) [Volum e fraction]on 02-03-2024 Hematocrit (Bld) [Volume fraction] 40.7 % 36.0-48.0 [facility] Hemoglobin [Mass/volume] in Bloodon 02-03-2024 Hemoglobin (Bld) [Mass/Vol] 13.4 g/dL 12.0-16.0 [facility] IgA [Mass/volume] in Serum o r Plasmaon 02-03-2024 IgA [Mass/Vol] 286 mg/dL 64-422 [facility] IgG [Mass/volume] in Serum o r Plasmaon 02-03-2024 IgG [Mass/Vol] 815 mg/dL 586-1602 [facility] IgM [Mass/volume] in Serum o r Plasmaon 02-03-2024 IgM [Mass/Vol] 425 mg/dL 26-217 [facility] Immunofixation for Urineon 0 02-03-2024 Interpretation Immunofixation (U) [Interp] Comment: . [facility] Comment on above: Presence of monoclon al protein is unclear at this time. Suggestrepeat in 3 to 6 months if clinically indicated.Performed at: [facility] [id number] [id number] Director: Yrn Maher PhD, Phone: [phone] Immunoglobulin light chains. kappa.free [Mass/volume] in Serumon 02-03-2024 Immunoglobulin light chains.kappa.free (S) [Mass/Vol] 49.6 mg/L 3.3-19.4 [facility] [place] Immunoglobulin light chains. kappa.free/Immunoglobulin light chains.lambda.free [Saji 02-03-2024 Immunoglobulin light chains.kappa.free/Immu noglobulin light chains.lambda.free (S) [Mass ratio] 2.07 0.26-1.65 [facility] [place] Comment on above: Performed at: [facility] [address] [id number] Director: Yrn Maher PhD, Phone: [phone] Immunoglobulin light chains. lambda.free [Mass/volume] in Serum or Plasmaon 02-03-2024 Immunoglobulin light chains.lambda.free [Mass/Vol] 24.0 mg/L 5.7-26.3 [facility] Iron binding capacity [Mass/ volume] in Serum or Plasmaon 02-03-2024 Iron binding capacity [Mass/Vol] 269.0 ug/dL 250.0-450.0 [facility] Iron saturation [Mass Fracti on] in Serum or Plasmaon 02-03-2024 Iron saturation [Mass fraction] 28.3 % [facility] Laboratory - Chemistry and C hemistry - challengeon 02-03-2024 Bilirubin Ql (U) Negative NEGATIVE [facility] Glucose (U) [Mass/Vol] Negative NEGATIVE Fi [facility] Ketones Ql (U) Negative NEGATIVE [facility] pH (U) 6.0 [pH] 5.0-9.0 [facility] Specific gravity (U) [Rel density] 1.025 1.005-1.025 [facility] Urobilinogen Qn (U) 0.2 {Sánchez'U}/dL 0.2-1.0 [facility] Albumin [Mass/Vol] 3.5 g/dL 3.4-5.0 [facility] Calcium [Mass/Vol] 10.3 mg/dL 8.5-10.1 [facility] Chloride [Moles/Vol] 99 mmol/L 98-107 [facility] CO2 [Moles/Vol] 28.3 mmol/L 21.0-32.0 [facility] Cobalamin (Vitamin B12) [Mass/Vol] 376.0 pg/mL 193.0-986.0 [facility] Creatinine [Mass/Vol] 1.64 mg/dL 0.55-1.02 [facility] Ferritin [Mass/Vol] 102.0 ng/mL 8.0-252.0 [facility] GFR/1.73 sq M.predicted MDRD (S/P/Bld) [Vol rate/Area] 37 mL/min/{1.73_m2} >=60 [facility] Glucose [Mass/Vol] 152 mg/dL 74-106 [facility] Iron [Mass/Vol] 76.0 ug/dL 50.0-170.0 [facility] Magnesium [Mass/Vol] 1.8 mg/dL 1.8-2.4 [facility] Potassium [Moles/Vol] 4.0 mmol/L 3.5-5.1 [facility] Protein [Mass/Vol] 0.5 g/dL Not Observed [facility] Sodium [Moles/Vol] 138 mmol/L 136-145 [facility] Urate [Mass/Vol] 8.5 mg/dL 2.6-6.0 [facility] Urea nitrogen [Mass/Vol] 35.0 mg/dL 7.0-18.0 [facility] Urea nitrogen/Creatinine [Mass ratio] 21.3 mg/mg [facility] [place] Laboratory - Specimen inform ationon 02-03-2024 Appearance (U) CLEAR CLEAR [facility] Color (U) LT. YELLOW YELLOW [facility] Laboratory - Urinalysison Leukocyte esterase Test strip Ql (U) MODERATE NEGATIVE [facility] Nitrite Ql (U) Negative NEGATIVE [facility] Protein (U) [Mass/Vol] 190.1 mg/dL <=11.9 [facility] Protein Ql (U) >=300 mg/dL NEG/TRACE [facility] Leukocytes [#/volume] correc chetna for nucleated erythrocytes in Blood by Automated counon 02-03-2024 WBC corrected for nucl RBC Auto (Bld) [#/Vol] 10.3 10 3/uL 4.0-11.0 [facility] MCH Auto (RBC) [Entitic mass ]on 02-03-2024 MCH (RBC) [Entitic mass] 30.0 pg 26.7-34.0 [facility] MCHC Auto (RBC) [Mass/Vol]on 02-03-2024 MCHC (RBC) [Mass/Vol] 32.9 g/dL 29.9-35.2 [facility] MCV Auto (RBC) [Entitic vol] on 02-03-2024 MCV (RBC) [Entitic vol] 91.1 fL 81.0-99.0 [facility] Mucus LM Ql (Urine sed)on Mucus Ql (Urine sed) NONE SEEN NONE SEEN [facility] No Panel Informationon 02-02 Urine Bacteria LARGE #/HPF NONE SEEN [facility] Urine Occult Blood TRACE-I NEGATIVE [facility] Urine Other Crystals None Seen #/HPF None Seen [facility] Urine Random Creatinine 81.44 mg/dL 20.00-300.0 0 [facility] Urine RBC 2-5 #/HPF 0-2 [facility] Urine Squamous Epithelial Cells FEW #/LPF NONE/RARE [facility] Urine WBC 20-50 #/HPF NONE SEEN [facility] 25-Hydroxy Vitamin D Total 78.2 ng/mL [facility] Comment on above: <20 ng/mL Vit D defi cient20-<30 ng/mL Vit D [id number] ng/mL Vit D sufficient>100 ng/mL Potential Toxicity Folate 29.10 ng/mL 8.60-58.90 [facility] Parathyroid Hormone (Intact) 33 pg/mL 15-65 [facility] [place] Comment on above: Performed at: [place] [id number] Director: Yrn Maher PhD, Phone: [phone] Phosphorus Level 3.8 mg/dL 2.6-4.7 [facility] Protein Electrophoresis Note Comment . [facility] Comment on above: Protein electrophore sis scan will follow via computer,mail, or section beamer delivery. Platelet mean volume Auto (B ld) [Entitic vol]on 02-03-2024 Platelet mean volume (Bld) [Entitic vol] 10.9 fL 9.5-13.5 [facility] Platelets Auto (Bld) [#/Vol] on 02-03-2024 Platelets (Bld) [#/Vol] 275 10 3/uL 150-450 [facility] Protein [Mass/volume] in Ser um or Plasmaon 02-03-2024 Protein [Mass/Vol] 7.0 g/dL 6.0-8.5 [facility] RBC Auto (Bld) [#/Vol]on RBC (Bld) [#/Vol] 4.47 10 6/uL 4.20-5.40 [facility] Serum globulin measurement ( mass/volume)on 02-03-2024 Globulin (S) [Mass/Vol] 3.4 g/dL 2.2-3.9 [facility] Serum or plasma albumin/glob ulin mass ratioon 02-03-2024 Albumin/Globulin [Mass ratio] 1.1 {ratio} 0.7-1.7 [facility] Serum or plasma alpha 1 glob ulin measurement by electrophoresis (mass/volume)on 02-03-2024 Alpha 1 globulin Elph [Mass/Vol] 0.3 g/dL 0.0-0.4 [facility] Serum or plasma alpha 2 glob ulin measurement by electrophoresis (mass/volume)on 02-03-2024 Alpha 2 globulin Elph [Mass/Vol] 1.0 g/dL 0.4-1.0 [facility] Serum or plasma anion gap de terminationon 02-03-2024 Anion gap [Moles/Vol] 14.7 mmol/L [facility] Serum or plasma beta globuli n measurement by electrophoresis (mass/volume)on 02-03-2024 Beta globulin Elph [Mass/Vol] 1.0 g/dL 0.7-1.3 [facility] Serum or plasma gamma globul in measurement by electrophoresis (mass/volume)on 02-03-2024 Gamma globulin Elph [Mass/Vol] 1.2 g/dL 0.4-1.8 [facility] Serum or plasma immunoelectr ophoresis interpretationon 02-03-2024 Interpretation IEP [Interp] Comment . [facility] Comment on above: Immunofixation shows IgM monoclonal protein with kappalight chain specificity. Urine protein/creatinine rat ioon 02-03-2024 Protein/Creatinine (U) [Ratio] 2.33 [facility] CBC W Auto Differential pane l (Bld)on 11-25-2023 Basophils (Bld) [#/Vol] 0.06 10*3/uL Normal <0.11 [facility] Comment on above: Order Comment: Speci men Type: BLOOD SPECIMENOrdering Facility: [facility] Address: [address] [place] [address] Performed By: #### 5 7021-8 ####[facility] LABCLIA [id number] [place] [address] Basophils/100 WBC (Bld) 0.6 % Normal [facility] Comment on above: Order Comment: Speci men Type: BLOOD SPECIMENOrdering Facility: [facility] Address: [address] [place] [address] Performed By: #### 5 7021-8 ####[facility] LABCLIA [id number] [place] [address] Differential cell count method Nom (Bld) Auto Normal [facility] Comment on above: Order Comment: Speci men Type: BLOOD SPECIMENOrdering Facility: [facility] Address: [address] [place] [address] Performed By: #### 5 7021-8 ####[facility] LABCLIA [id number] [place] [address] Eosinophils (Bld) [#/Vol] 0.17 10*3/uL Normal <0.46 [facility] Comment on above: Order Comment: Speci men Type: BLOOD SPECIMENOrdering Facility: [facility] Address: [address] [place] [address] Performed By: #### 5 7021-8 ####[facility]CLIA [id number] [place] [address] Eosinophils/100 WBC (Bld) 1.7 % Normal [facility] Comment on above: Order Comment: Speci men Type: BLOOD SPECIMENOrdering Facility: [facility] Address: [address] [place] [address] Performed By: #### 5 7021-8 ####[facility]CLIA [id number] [place] [address] Erythrocyte distribution width (RBC) [Ratio] 13.5 % Normal 11.5-15.0 [facility] Comment on above: Order Comment: Speci men Type: BLOOD SPECIMENOrdering Facility: [facility] Address: [address] [place] [address] Performed By: #### 5 7021-8 ####[facility]CLIA [id number] [place] [address] Hematocrit (Bld) [Volume fraction] 37.2 % Normal 36.0-46.0 [facility] Comment on above: Order Comment: Speci men Type: BLOOD SPECIMENOrdering Facility: [facility] Address: [address] [place] [address] Performed By: #### 5 7021-8 ####[facility]CLIA [id number] [place] [address] Hemoglobin (Bld) [Mass/Vol] 12.0 g/dL Normal 11.5-15.5 [facility] Comment on above: Order Comment: Speci men Type: BLOOD SPECIMENOrdering Facility: [facility] Address: [address] [place] [address] Performed By: #### 5 7021-8 ####[facility] LABIA [id number] [place] [address] Immature granulocytes (Bld) [#/Vol] 0.04 10*3/uL Normal <0.10 [facility] Comment on above: Order Comment: Speci men Type: BLOOD SPECIMENOrdering Facility: [facility] Address: [address] [place] [address] Performed By: #### 5 7021-8 ####[facility]CLIA [id number] [place] [address] Immature granulocytes/100 WBC (Bld) 0.4 % Normal [facility] Comment on above: Order Comment: Speci men Type: BLOOD SPECIMENOrdering Facility: [facility] Address: [address] [place] [address] Performed By: #### 5 7021-8 ####[facility]CLIA [id number] [place] [address] Lymphocytes (Bld) [#/Vol] 1.17 10*3/uL Normal 1.00-4.00 [facility] Comment on above: Order Comment: Speci men Type: BLOOD SPECIMENOrdering Facility: [facility] Address: [address] [place] [address] Performed By: #### 5 7021-8 ####[facility]CLIA [id number] [place] [address] Lymphocytes/100 WBC (Bld) 11.5 % Normal [facility] Comment on above: Order Comment: Speci men Type: BLOOD SPECIMENOrdering Facility: [facility] Address: [address] [place] [address] Performed By: #### 5 7021-8 ####[facility] LABCLIA [id number] [place] [address] MCH (RBC) [Entitic mass] 30.1 pg Normal 26.0-34.0 [facility] Comment on above: Order Comment: Speci men Type: BLOOD SPECIMENOrdering Facility: [facility] Address: [address] [place] [address] Performed By: #### 5 7021-8 ####[facility] LABCLIA [id number] [place] [address] MCHC (RBC) [Mass/Vol] 32.3 g/dL Normal 30.5-36.0 [facility] Comment on above: Order Comment: Speci men Type: BLOOD SPECIMENOrdering Facility: [facility] Address: [address] [place] [address] Performed By: #### 5 7021-8 ####[facility] LABIA [id number] [place] [address] MCV (RBC) [Entitic vol] 93.2 fL Normal 80.0-100.0 [facility] Comment on above: Order Comment: Speci men Type: BLOOD SPECIMENOrdering Facility: [facility] Address: [address] [place] [address] Performed By: #### 5 7021-8 ####[facility] LABCLIA [id number] [place] [address] Monocytes (Bld) [#/Vol] 0.88 10*3/uL High <0.87 [facility] Comment on above: Order Comment: Speci men Type: BLOOD SPECIMENOrdering Facility: [facility] Address: [address] [place] [address] Performed By: #### 5 7021-8 ####[facility] LABCLIA [id number] [place] [address] Monocytes/100 WBC (Bld) 8.7 % Normal [facility] Comment on above: Order Comment: Speci men Type: BLOOD SPECIMENOrdering Facility: [facility] Address: [address] [place] [address] Performed By: #### 5 7021-8 ####[facility] LABCLIA [id number] [place] [address] Neutrophils (Bld) [#/Vol] 7.81 10*3/uL High 1.45-7.50 [facility] Comment on above: Order Comment: Speci men Type: BLOOD SPECIMENOrdering Facility: [facility] Address: [address] [place] [address] Performed By: #### 5 7021-8 ####[facility] LABCLIA [id number] [place] [address] Neutrophils/100 WBC (Bld) 77.1 % Normal [facility] Comment on above: Order Comment: Speci men Type: BLOOD SPECIMENOrdering Facility: [facility] Address: [address] [place] [address] Performed By: #### 5 7021-8 ####[facility] LABCLIA [id number] [place] [address] Nucleated RBC (Bld) [#/Vol] 10*3/uL Normal <0.01 [facility] Comment on above: Order Comment: Speci men Type: BLOOD SPECIMENOrdering Facility: [facility] Address: [address] [place] [address] Performed By: #### 5 7021-8 ####[facility] LABCLIA [id number] [place] [address] Nucleated RBC/100 WBC (Bld) [Ratio] 0.0 /100 WBC Normal [facility] Comment on above: Order Comment: Speci men Type: BLOOD SPECIMENOrdering Facility: [facility] Address: [address] [place] [address] Performed By: #### 5 7021-8 ####[facility] LABCLIA [id number] [place] [address] Platelet mean volume (Bld) [Entitic vol] 10.8 fL Normal 9.0-12.7 [facility] Comment on above: Order Comment: Speci men Type: BLOOD SPECIMENOrdering Facility: [facility] Address: [address] [place] [address] Performed By: #### 5 7021-8 ####[facility] LABCLIA [id number] [place] [address] Platelets (Bld) [#/Vol] 268 10*3/uL Normal 150-400 [facility] Comment on above: Order Comment: Speci men Type: BLOOD SPECIMENOrdering Facility: [facility] Address: [address] [place] [address] Performed By: #### 5 7021-8 ####[facility] LABCLIA [id number] [place] [address] RBC (Bld) [#/Vol] 3.99 10*6/uL Normal 3.90-5.20 [facility] Comment on above: Order Comment: Speci men Type: BLOOD SPECIMENOrdering Facility: [facility] Address: [address] [place], [place] [address] [address] Performed By: #### 5 7021-8 ####[facility] LABCLIA [id number] [place] [address] WBC (Bld) [#/Vol] 10.13 10*3/uL Normal 3.70-11.00 [facility] Comment on above: Order Comment: Speci men Type: BLOOD SPECIMENOrdering Facility: [facility] Address: [address] [place] [address] Performed By: #### 5 7021-8 ####[facility] LABCLIA [id number] [place] [address] CNOVSPon 11-25-2023 CNOVSP Visit (SP) Office ([place]) ----- ANDREW BARROS ([id number]) 1945 F Date Time Provider Department 11/25/23 2:15 PM SANDEEP LENZ During your visit today, we recorded the following information about you: Temperature Pulse Respiration Blood pressure 97.5 degrees 70/minute 18/minute 144/63 Weight Height 63.9 kg 1.626 m Sandeep Lenz MD 11/25/2023 7:36 PM Signed NAME: Andrew Barros CLINIC NO.: [id number] DATE OF SERVICE: November 25, 2023 (Eduardo) [...] outer quadrant, invasive ductal carcinoma, ER postive, [place]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 01/04/2021 - Mammograms at [facility] Bi-Rads 2 benign. 09/26/2018 - Started arimidex [...] cheaper. Updated Visit, July 21, 2021: Andrew Barrso returns for scheduled follow-up. Since her last [...] oz (63.9k (more content not included)... Normal [facility] Calcium.ionized [Moles/Vol]o n 11-25-2023 Calcium.ionized (Bld) [Mass/Vol] 1.27 mmol/L Normal 1.08-1.30 [facility] Comment on above: Order Comment: Speci men Type: BLOOD SPECIMENOrdering Facility: [facility] Address: [address] [place] [address] Performed By: #### 1 995-0 ####[facility] LABIA [id number] [place] [address] [place] Calcium.ionized adjusted to pH 7.4 (Bld) [Moles/Vol] 1.25 mmol/L Normal 1.08-1.30 [facility] Comment on above: Order Comment: Speci men Type: BLOOD SPECIMENOrdering Facility: [facility] Address: [address] [place] [address] Performed By: #### 1 995-0 ####[facility] LABIA [id number] [place] [address] [place] Cancer Ag15-3 SerPl-aCncon 0 11-25-2023 Cancer Ag 15-3 Qn 12.7 U/mL Normal <26.0 [facility] Comment on above: Order Comment: Speci men Type: BLOOD SPECIMENOrdering Facility: [facility] Address: [address] [place] [address] Result Comment: The CA 15-3 test methodology used is the Electrochemiluminescence Immunoassay by [employer]. Results obtained with different methods or kits cannot be used interchangeably. Performed By: #### 6 875-9, 2731-8 ####[facility] LABCLIA [id number] [place] [address] [place] Cancer Ag27-29 SerPl-aCncon 11-25-2023 Cancer Ag 27-29 Qn 18.5 [arb'U]/mL Normal <38.6 [facility] Comment on above: Order Comment: Speci men Type: BLOOD SPECIMENOrdering Facility: [facility] Address: [address] [place] [address] Result Comment: The CA27.29 test was performed using the [employer] XP chemiluminometric immunoassay method. Results obtained with different assay methods or kits cannot be used interchangeably. Performed By: #### 1 7842-6 ####[facility] LABCLIA [id number] [place] [address] [facility] [place] Comprehensive metabolic 2000 panelon 11-25-2023 Albumin [Mass/Vol] 4.5 g/dL Normal 3.9-4.9 [facility] Comment on above: Order Comment: Speci men Type: BLOOD SPECIMENOrdering Facility: [facility] Address: [address] [place] [address] Performed By: #### 2 4323-8 ####[facility] LABCLIA [id number] [place] [address] ALP [Catalytic activity/Vol] 98 U/L Normal 34-123 [facility] Comment on above: Order Comment: Speci men Type: BLOOD SPECIMENOrdering Facility: [facility] Address: [address] [place] [address] Performed By: #### 2 4323-8 ####[facility] LABCLIA [id number] [place] [address] ALT [Catalytic activity/Vol] 11 U/L Normal 7-38 [facility] Comment on above: Order Comment: Speci men Type: BLOOD SPECIMENOrdering Facility: [facility] Address: [address] [place] [address] Performed By: #### 2 4323-8 ####[facility] LABCLIA [id number] [place] [address] Anion gap [Moles/Vol] 14 mmol/L Normal 9-18 [facility] Comment on above: Order Comment: Speci men Type: BLOOD SPECIMENOrdering Facility: [facility] Address: [address] [place] [address] Performed By: #### 2 4323-8 ####[facility] LABCLIA [id number] [place] [address] AST [Catalytic activity/Vol] 16 U/L Normal 13-35 [facility] Comment on above: Order Comment: Speci men Type: BLOOD SPECIMENOrdering Facility: [facility] Address: [address] [place] [address] Performed By: #### 2 4323-8 ####[facility] LABCLIA [id number] [place] [address] Bilirubin [Mass/Vol] 0.5 mg/dL Normal 0.2-1.3 [facility] Comment on above: Order Comment: Speci men Type: BLOOD SPECIMENOrdering Facility: [facility] Address: [address] [place] [address] Performed By: #### 2 4323-8 ####[facility] LABCLIA [id number] [place] [address] Calcium [Mass/Vol] 10.2 mg/dL Normal 8.5-10.2 [facility] Comment on above: Order Comment: Speci men Type: BLOOD SPECIMENOrdering Facility: [facility] Address: [address] [place] [address] Performed By: #### 2 4323-8 ####[facility] LABCLIA [id number] [place] [address] Chloride [Moles/Vol] 100 mmol/L Normal 97-105 [facility] Comment on above: Order Comment: Speci men Type: BLOOD SPECIMENOrdering Facility: [facility] Address: [address] [place] [address] Performed By: #### 2 4323-8 ####[facility] LABCLIA [id number] [place] [address] CO2 [Moles/Vol] 24 mmol/L Normal 22-30 [facility] Comment on above: Order Comment: Speci men Type: BLOOD SPECIMENOrdering Facility: [facility] [facility] Address: [address] [place] [address] Performed By: #### 2 4323-8 ####[facility] [id number] [place] [address] Creatinine [Mass/Vol] 1.66 mg/dL High 0.58-0.96 [facility] Comment on above: Order Comment: Speci men Type: BLOOD SPECIMENOrdering Facility: [facility] Address: [address] [place] [address] Performed By: #### 2 4323-8 ####[facility] [id number] [place] [address] Creatinine and Glomerular filtration rate.predicted panel (S/P/Bld) 31 mL/min/1.73m??? Low >=60 [facility] Comment on above: Order Comment: Speci men Type: BLOOD SPECIMENOrdering Facility: [facility] Address: [address] [place] [address] Result Comment: Sugar mated Glomerular Filtration Rate [...] actual GFR. Performed By: #### 2 4323-8 ####[facility] [id number] [place] [address] Glucose [Mass/Vol] 145 mg/dL High 74-99 [facility] Comment on above: Order Comment: Speci men Type: BLOOD SPECIMENOrdering Facility: [facility] Address: [address] [place] [address] Result Comment: The [place] Diabetes Association (ADA) provides guidance for cutoff [...] Standards of Medical Care in Diabetes 2016, [place] [employer]. Diabetes Care. 2016.39(Suppl 1). Performed By: #### 2 4323-8 ####[facility] [id number] [place] [address] Potassium [Moles/Vol] 4.5 mmol/L Normal 3.7-5.1 [facility] Comment on above: Order Comment: Speci men Type: BLOOD SPECIMENOrdering Facility: [facility] Address: [address] [place] [address] Performed By: #### 2 4323-8 ####[facility] [id number] [place] [address] Protein [Mass/Vol] 7.7 g/dL Normal 6.3-8.0 [facility] Comment on above: Order Comment: Speci men Type: BLOOD SPECIMENOrdering Facility: [facility] Address: [address] [place] [address] Performed By: #### 2 4323-8 ####[facility] [id number] [place] [address] Sodium [Moles/Vol] 138 mmol/L Normal 136-144 [facility] Comment on above: Order Comment: Speci men Type: BLOOD SPECIMENOrdering Facility: [facility] Address: [address] [id number] Performed By: #### 2 4323-8 ####[facility] [id number] [place] [address] Urea nitrogen [Mass/Vol] 32 mg/dL High 7-21 [facility] Comment on above: Order Comment: Speci men Type: BLOOD SPECIMENOrdering Facility: [facility] Address: [address] [place] [address] Performed By: #### 2 4323-8 ####[facility] [id number] [place] [address] PTH RELATED PEPTIDEon 2023 PTH RELATED PEPTIDE 4.2 pmol/L High 0.0-3.4 [facility] Comment on above: Order Comment: Speci men Type: BLOOD SPECIMEN Ordering Facility: [facility] Address: [address] [place] [address] Result Comment: INTE RPRETIVE INFORMATION: Parathyroid Hormone-Related Peptide This test was developed and its performance characteristics determined by [employer]. It has not been cleared or approved by the [place] Food and Drug Administration. This test was performed in a CLIA certified laboratory and is intended for clinical purposes. Performed By: [employer] [address] [place] [address] [employer] Inspector: Mark Fernandez MD, PhD [place] Number: [id number] Performed By: #### 1 952-1, 2885-2 #### [facility] CLIA [id number] [address] [place] [address] [place] PTH-Intact SerPl-ncon 03-0 Parathyrin.intact [Mass/Vol] 43 pg/mL Normal 15-65 [facility] Comment on above: Order Comment: Speci men Type: BLOOD SPECIMENOrdering Facility: [facility] Address: [address] [place] [address] Performed By: #### 6 875-9, 2731-8 ####[facility] [id number] [place] [address] [place] 36on 11-21-2023 36 US sent to [facility] 36on 11-12-2023 36 Pt calling back want ing to know what to do [facility] 36on 11-07-2023 36 10/30/2023: MD Odette Parker [...] this morning. Any recommendations? Please advise. Thanks. [facility] Ophthalmic OCT panelon 10-31 [facility] Right Eye Images reviewed [...] Poor scan left eye (OS)> [facility] Radiology Study observation (narrative) [facility] Orders Onlyon 10-31-2023 Orders Only [id number] Wayne Barros 1945 F Date Provider Department Center 10/31/2023 895-ODETTE FERRARI CARD [facility] Family History Problem Relation Age of Onset Coronary artery disease Mother Coronary artery disease Father Coronary artery disease Sister Coronary artery disease Brother Family Status - Relation Status Age at Mother Father Sister Brother [facility] US Eye+Orbit - bilateralon 0 10-31-2023 Diagnosis: Cataract both eyes (OU) Testing Indication: Performed for preop measurements in the determination of an intraocular lens (IOL) for both eyes (OU) Test Reliability: Good quality both eyes (OU) Interpretation: Good measurements for intraocular lens (IOL) calculation purposes. Calculation made for both eyes (OU). [facility] Healthcare [facility] Healthcare Radiology Study observation (narrative) [facility] Office Visiton 10-16-2023 Follow-up visit [id number] Wayne Barros 1945 F Date Provider Department Center 10/16/2023 GISSELL WANG KASHIF [facility] Family History Problem Relation Age of Onset Coronary artery disease Mother Coronary artery disease Father Coronary artery disease Sister Coronary artery disease Brother Family Status - Relation Status Age at Mother Father Sister Brother Level of Service:[address] [place] OFFICE/OUTPATIENT ESTABLISHED MOD MDM 30 MIN Normal [facility] CBC W Auto Differential pane l (Bld)on 08-19-2023 Basophils (Bld) [#/Vol] 0.06 10*3/uL Normal <0.11 [facility] Comment on above: Order Comment: Speci men Type: BLOOD SPECIMENOrdering Facility: [facility] Address: [address] [place] [address] Performed By: #### 5 7021-8 ####[facility] [id number] [place] [address] Basophils/100 WBC (Bld) 0.6 % Normal [facility] Comment on above: Order Comment: Speci men Type: BLOOD SPECIMENOrdering Facility: [facility] Address: [address] [place] [address] Performed By: #### 5 7021-8 ####[facility] [id number] [place] [address] Differential cell count method Nom (Bld) Auto Normal [facility] Comment on above: Order Comment: Speci men Type: BLOOD SPECIMENOrdering Facility: [facility] Address: [address] [place] [address] Performed By: #### 5 7021-8 ####[facility] [id number] [place] [address] Eosinophils (Bld) [#/Vol] 0.16 10*3/uL Normal <0.46 [facility] Comment on above: Order Comment: Speci men Type: BLOOD SPECIMENOrdering Facility: [facility] Address: [address] [place] [address] Performed By: #### 5 7021-8 ####[facility] [id number] [place] [address] Eosinophils/100 WBC (Bld) 1.6 % Normal [facility] Comment on above: Order Comment: Speci men Type: BLOOD SPECIMENOrdering Facility: [facility] Address: [address] [place] [address] Performed By: #### 5 7021-8 ####[facility] [id number] [place] [address] Erythrocyte distribution width (RBC) [Ratio] 12.4 % Normal 11.5-15.0 [facility] Comment on above: Order Comment: Speci men Type: BLOOD SPECIMENOrdering Facility: [facility] Address: [address] [place] [address] Performed By: #### 5 7021-8 ####[facility] [id number] [place] [address] Hematocrit (Bld) [Volume fraction] 39.6 % Normal 36.0-46.0 [facility] Comment on above: Order Comment: Speci men Type: BLOOD SPECIMENOrdering Facility: [facility] Address: [address] [place] [address] Performed By: #### 5 7021-8 ####[facility] [id number] [place] [address] Hemoglobin (Bld) [Mass/Vol] 13.0 g/dL Normal 11.5-15.5 [facility] Comment on above: Order Comment: Speci men Type: BLOOD SPECIMENOrdering Facility: [facility] Address: [address] [place] [address] Performed By: #### 5 7021-8 ####[facility] [id number] [place] [address] Immature granulocytes (Bld) [#/Vol] 0.03 10*3/uL Normal <0.10 [facility] Comment on above: Order Comment: Speci men Type: BLOOD SPECIMENOrdering Facility: [facility] Address: [address] [place] [address] Performed By: #### 5 7021-8 ####[facility] [id number] [place] [address] Immature granulocytes/100 WBC (Bld) 0.3 % Normal [facility] Comment on above: Order Comment: Speci men Type: BLOOD SPECIMENOrdering Facility: [facility] Address: [address] [place] [address] Performed By: #### 5 7021-8 ####[facility] [id number] [place] [address] Lymphocytes (Bld) [#/Vol] 1.62 10*3/uL Normal 1.00-4.00 [facility] Comment on above: Order Comment: Speci men Type: BLOOD SPECIMENOrdering Facility: [facility] Address: [address] [place] [address] Performed By: #### 5 7021-8 ####[facility] [id number] [place] [address] Lymphocytes/100 WBC (Bld) 16.2 % Normal [facility] Comment on above: Order Comment: Speci men Type: BLOOD SPECIMENOrdering Facility: [facility] Address: [address] [place] [address] Performed By: #### 5 7021-8 ####[facility] [id number] [place] [address] MCH (RBC) [Entitic mass] 30.9 pg Normal 26.0-34.0 [facility] Comment on above: Order Comment: Speci men Type: BLOOD SPECIMENOrdering Facility: [facility] Address: [address] [place] [address] Performed By: #### 5 7021-8 ####[facility] [id number] [place] [address] MCHC (RBC) [Mass/Vol] 32.8 g/dL Normal 30.5-36.0 [facility] Comment on above: Order Comment: Speci men Type: BLOOD SPECIMENOrdering Facility: [facility] Address: [address] [place] [address] Performed By: #### 5 7021-8 ####[facility] [id number] [place] [address] MCV (RBC) [Entitic vol] 94.1 fL Normal 80.0-100.0 [facility] Comment on above: Order Comment: Speci men Type: BLOOD SPECIMENOrdering Facility: [facility] Address: [address] [place] [address] Performed By: #### 5 7021-8 ####[facility] LABIA [id number] [place] [address] Monocytes (Bld) [#/Vol] 1.04 10*3/uL High <0.87 [facility] Comment on above: Order Comment: Speci men Type: BLOOD SPECIMENOrdering Facility: [facility] Address: [address] [place] [address] Performed By: #### 5 7021-8 ####[facility] [id number] [place] [address] Monocytes/100 WBC (Bld) 10.4 % Normal [facility] Comment on above: Order Comment: Speci men Type: BLOOD SPECIMENOrdering Facility: [facility] Address: [address] [place] [address] Performed By: #### 5 7021-8 ####[facility] [id number] [place] [address] Neutrophils (Bld) [#/Vol] 7.12 10*3/uL Normal 1.45-7.50 [facility] Comment on above: Order Comment: Speci men Type: BLOOD SPECIMENOrdering Facility: [facility] Address: [address] [place] [address] Performed By: #### 5 7021-8 ####[facility] [id number] [place] [address] Neutrophils/100 WBC (Bld) 70.9 % Normal [facility] Comment on above: Order Comment: Speci men Type: BLOOD SPECIMENOrdering Facility: [facility] Address: [address] [place] [address] Performed By: #### 5 7021-8 ####[facility] [id number] [place] [address] Nucleated RBC (Bld) [#/Vol] 10*3/uL Normal <0.01 [facility] Comment on above: Order Comment: Speci men Type: BLOOD SPECIMENOrdering Facility: [facility] Address: [address] [place] [address] Performed By: #### 5 7021-8 ####[facility] [id number] [place] [address] Nucleated RBC/100 WBC (Bld) [Ratio] 0.0 /100 WBC Normal [facility] Comment on above: Order Comment: Speci men Type: BLOOD SPECIMENOrdering Facility: [facility] Address: [address] [place] [address] Performed By: #### 5 7021-8 ####[facility] [id number] [place] [address] Platelet mean volume (Bld) [Entitic vol] 10.7 fL Normal 9.0-12.7 [facility] Comment on above: Order Comment: Speci men Type: BLOOD SPECIMENOrdering Facility: [facility] Address: [address] [place] [address] Performed By: #### 5 7021-8 ####[facility] [id number] [place] [address] Platelets (Bld) [#/Vol] 252 10*3/uL Normal 150-400 [facility] Comment on above: Order Comment: Speci men Type: BLOOD SPECIMENOrdering Facility: [facility] Address: [place] [address] Performed By: #### 5 7021-8 ####[facility] [id number] [place] [address] RBC (Bld) [#/Vol] 4.21 10*6/uL Normal 3.90-5.20 [facility] Comment on above: Order Comment: Speci men Type: BLOOD SPECIMENOrdering Facility: [facility] Address: [address] [place] [address] Performed By: #### 5 7021-8 ####[facility]IA [id number] [place] [address] WBC (Bld) [#/Vol] 10.03 10*3/uL Normal 3.70-11.00 [facility] Comment on above: Order Comment: Speci men Type: BLOOD SPECIMENOrdering Facility: [facility] Address: [address] [place] [address] Performed By: #### 5 7021-8 ####[facility] [id number] [place] [address] CNOVSPon 08-19-2023 CNOVS Visit (SP) Office ([place]) ----- ANDREW BARROS ([id number]) 1945 F Date Time Provider Department 08/19/23 1:00 PM SANDEEP LENZ During your visit today, we recorded the following information about you: Temperature Pulse Respiration Blood pressure 97.7 degrees 67/minute 16/minute 148/65 Weight Height 61.8 kg 1.626 m Sandeep Lenz MD 08/20/2023 7:07 AM Signed Kathy nephrology NAME: Andrew Barros CLINIC NO.: [id number] DATE OF SERVICE: August 19, 2023 (Eduardo) [...] outer quadrant, invasive ductal carcinoma, ER postive, WI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 Mammograms at [facility] on 01/04/2021 Bi-Rads 2 benign. [...] comfortably. N (more content not included)... Normal [facility] 08-19-2023 CNPN Telephone ([place]) ----- ANDREW BARROS ([id number]) 1945 F Date Time Provider Department 08/19/23 [...] As of Date: 08/19/2023 Noted Allergy Reaction [id number] REDUCTASE INHIBIT*01/21/2018 16 - Unknown Comments: Other [...] Status:Closed by CLEMENTE SRIVASTAVA on 08/19/23 Normal [facility] Calcium.ionized [Moles/Vol]o n 08-19-2023 Calcium.ionized (Bld) [Mass/Vol] 1.20 mmol/L Normal 1.08-1.30 [facility] Comment on above: Order Comment: Speci men Type: BLOOD SPECIMENOrdering Facility: [facility] Address: [address] [place] [address] Performed By: #### 1 995-0 ####[facility] [id number] [address] [address] [place] Calcium.ionized adjusted to pH 7.4 (Bld) [Moles/Vol] 1.19 mmol/L Normal 1.08-1.30 [facility] Comment on above: Order Comment: Speci men Type: BLOOD SPECIMENOrdering Facility: [facility] Address: [address] [place] [address] Performed By: #### 1 995-0 ####[facility] [id number] [place] [address] [place] Comprehensive metabolic 2000 panelon 08-19-2023 Albumin [Mass/Vol] 4.4 g/dL Normal 3.9-4.9 [facility] Comment on above: Order Comment: Speci men Type: BLOOD SPECIMEN [facility] Facility: [facility] Address: [address] [place] [address] Performed By: #### 1 952-1, 2885-2 #### [facility] CLIA [id number] [address] [place] [address] [place] ALP [Catalytic activity/Vol] 88 U/L Normal 34-123 [facility] Comment on above: Order Comment: Speci men Type: BLOOD SPECIMEN Ordering Facility: [facility] Address: [address] [place] [address] Performed By: #### 1 952-1, 2885-2 #### [facility] CLIA [id number] [address] [place] [address] [place] ALT [Catalytic activity/Vol] 8 U/L Normal 7-38 [facility] Comment on above: Order Comment: Speci men Type: BLOOD SPECIMEN [facility] Facility: [facility] Address: [address] [place] [address] Performed By: #### 1 952-1, 288-2 #### [facility] CLIA [id number] [address] [place] [address] [place] Anion gap [Moles/Vol] 11 mmol/L Normal 9-18 [facility] Comment on above: Order Comment: Speci men Type: BLOOD SPECIMEN [facility]ing Facility: [facility] Address: [address] [place] [address] Performed By: #### 1 952-1, 2884-2 #### [facility] CLIA [id number] [address] [place] [address] [place] AST [Catalytic activity/Vol] 13 U/L Normal 13-35 [facility] Comment on above: Order Comment: Speci men Type: BLOOD SPECIMEN [facility]ing Facility: [facility] Address: [address] [place] [address] Performed By: #### 1 952-, 2884-2 #### [facility] CLIA [id number] [address] [place] [address] [place] Bilirubin [Mass/Vol] 0.3 mg/dL Normal 0.2-1.3 [facility] Comment on above: Order Comment: Speci men Type: BLOOD SPECIMEN [facility] Facility: [facility] Address: [address] [place] [address] Performed By: #### 1 952-, 2884-2 #### [facility] CLIA [id number] [address] [place] [address] [place] Calcium [Mass/Vol] 9.6 mg/dL Normal 8.5-10.2 [facility] Comment on above: Order Comment: Speci men Type: BLOOD SPECIMEN [facility]ing Facility: [facility] Address: [address] [place] [address] Performed By: #### 1 952-, 2884-2 #### [facility] CLIA [id number] [address] [place] [address] [place] Chloride [Moles/Vol] 98 mmol/L Normal 97-105 [facility] Comment on above: Order Comment: Speci men Type: BLOOD SPECIMEN [facility]ing Facility: [facility] Address: [address] [place] [address] Performed By: #### 1 952-1, 2885-2 #### [facility] CLIA [id number] [address] [place] [address] [place] CO2 [Moles/Vol] 30 mmol/L Normal 22-30 [facility] Comment on above: Order Comment: Speci men Type: BLOOD SPECIMEN Ordering Facility: [facility] Address: [address] [place] [address] Performed By: #### 1 952-1, 2885-2 #### [facility] CLIA [id number] [address] [place] [address] [place] Creatinine [Mass/Vol] 1.27 mg/dL High 0.58-0.96 [facility] Comment on above: Order Comment: Speci men Type: BLOOD SPECIMEN Ordering Facility: [facility] Address: [address] [place] [address] Performed By: #### 1 952-1, 2885-2 #### [facility] CLIA [id number] [address] [place] [address] [place] Creatinine and Glomerular filtration rate.predicted panel (S/P/Bld) 43 mL/min/1.73m??? Low >=60 [facility] Comment on above: Order Comment: Speci men Type: BLOOD SPECIMEN Ordering Facility: [facility] Address: [address] [place] [address] Result Comment: Sugar mated Glomerular Filtration Rate [...] Performed By: #### 1 952-1, 2885-2 #### [facility] CLIA [id number] [address] [place] [address] [place] Glucose [Mass/Vol] 94 mg/dL Normal 74-99 [facility] Comment on above: Order Comment: Anastacio bonilla Type: BLOOD SPECIMEN Ordering Facility: [facility] Address: [address] [place] [address] Result Comment: The [place] [employer] (ADA) provides guidance for cutoff [...] Standards of Medical Care in Diabetes 2016, [place] [employer]. Diabetes Care. 2016.39(Suppl 1). Performed By: #### 1 952-, 2884-2 #### [facility] CLIA [id number] [address] [place] [address] [place] Potassium [Moles/Vol] 3.7 mmol/L Normal 3.7-5.1 [facility] Comment on above: Order Comment: Anastacio bonilla Type: BLOOD SPECIMEN Ordering Facility: [facility] Address: [address] [place] [address] Performed By: #### 1 952-, 288-2 #### [facility] CLIA [id number] [address] [place] [address] [place] Protein [Mass/Vol] 7.3 g/dL Normal 6.3-8.0 [facility] Comment on above: Order Comment: Speci men Type: BLOOD SPECIMEN Ordering Facility: [facility] Address: [address] [place] [address] Performed By: #### 1 952-1, 2885-2 #### [facility] CLIA [id number] [address] [place] [address] [place] Sodium [Moles/Vol] 139 mmol/L Normal 136-144 [facility] Comment on above: Order Comment: Speci men Type: BLOOD SPECIMEN [facility]ing Facility: [facility] Address: [address] [place] [address] Performed By: #### 1 952-1, 2885-2 #### [facility] CLIA [id number] [address] [place] [address] [place] Urea nitrogen [Mass/Vol] 28 mg/dL High 7-21 [facility] Comment on above: Order Comment: Speci men Type: BLOOD SPECIMEN Ordering Facility: [facility] Address: [address] [place] [address] Performed By: #### 1 952-1, 2885-2 #### [facility] CLIA [id number] [address] [place] [address] [place] CBC W Auto Differential pane l (Bld)on 07-02-2023 Basophils (Bld) [#/Vol] 0.06 10*3/uL Normal <0.11 [facility] Comment on above: Order Comment: Speci men Type: BLOOD SPECIMENOrdering Facility: [facility] Address: [address] [place] [address] Performed By: #### 5 7021-8 ####[facility] LABCLIA [id number] [place] [address] Basophils/100 WBC (Bld) 0.6 % Normal [facility] Comment on above: Order Comment: Speci men Type: BLOOD SPECIMENOrdering Facility: [facility] Address: [address] [place] [address] Performed By: #### 5 7021-8 ####[facility] [id number] [place] [address] Differential cell count method Nom (Bld) Auto Normal [facility] Comment on above: Order Comment: Speci men Type: BLOOD SPECIMENOrdering Facility: [facility] Address: [address] [place] [address] Performed By: #### 5 7021-8 ####[facility] [id number] [place] [address] Eosinophils (Bld) [#/Vol] 0.14 10*3/uL Normal <0.46 [facility] Comment on above: Order Comment: Speci men Type: BLOOD SPECIMENOrdering Facility: [facility] Address: [address] [place] [address] Performed By: #### 5 7021-8 ####[facility] LABCLIA [id number] [place] [address] Eosinophils/100 WBC (Bld) 1.5 % Normal [facility] Comment on above: Order Comment: Speci men Type: BLOOD SPECIMENOrdering Facility: [facility] Address: [address] [place] [address] Performed By: #### 5 7021-8 ####[facility] LABCLIA [id number] [place] [address] Erythrocyte distribution width (RBC) [Ratio] 12.5 % Normal 11.5-15.0 [facility] Comment on above: Order Comment: Speci men Type: BLOOD SPECIMENOrdering Facility: [facility] Address: [address] [place] [address] Performed By: #### 5 7021-8 ####[facility] LABCLIA [id number] [place] [address] Hematocrit (Bld) [Volume fraction] 40.6 % Normal 36.0-46.0 [facility] Comment on above: Order Comment: Speci men Type: BLOOD SPECIMENOrdering Facility: [facility] Address: [address] [place] [address] Performed By: #### 5 7021-8 ####[facility] LABCLIA [id number] [place] [address] Hemoglobin (Bld) [Mass/Vol] 13.1 g/dL Normal 11.5-15.5 [facility] Comment on above: Order Comment: Speci men Type: BLOOD SPECIMENOrdering Facility: [facility] Address: [address] [place] [address] Performed By: #### 5 7021-8 ####[facility] LABCLIA [id number] [place] [address] Immature granulocytes (Bld) [#/Vol] 0.03 10*3/uL Normal <0.10 [facility] Comment on above: Order Comment: Speci men Type: BLOOD SPECIMENOrdering Facility: [facility] Address: [address] [place] [address] Performed By: #### 5 7021-8 ####[facility] LABCLIA [id number] [place] [address] Immature granulocytes/100 WBC (Bld) 0.3 % Normal [facility] Comment on above: Order Comment: Speci men Type: BLOOD SPECIMENOrdering Facility: [facility] Address: [address] [place] [address] Performed By: #### 5 7021-8 ####[facility] LABCLIA [id number] [place] [address] Lymphocytes (Bld) [#/Vol] 1.44 10*3/uL Normal 1.00-4.00 [facility] Comment on above: Order Comment: Speci men Type: BLOOD SPECIMENOrdering Facility: [facility] Address: [address] [place] [address] Performed By: #### 5 7021-8 ####[facility] LABCLIA [id number] [place] [address] Lymphocytes/100 WBC (Bld) 15.2 % Normal [facility] Comment on above: Order Comment: Speci men Type: BLOOD SPECIMENOrdering Facility: [facility] Address: [address] [place] [address] Performed By: #### 5 7021-8 ####[facility] LABCLIA [id number] [place] [address] MCH (RBC) [Entitic mass] 31.2 pg Normal 26.0-34.0 [facility] Comment on above: Order Comment: Speci men Type: BLOOD SPECIMENOrdering Facility: [facility] Address: [address] [place] [address] Performed By: #### 5 7021-8 ####[facility] LABCLIA [id number] [place] [address] MCHC (RBC) [Mass/Vol] 32.3 g/dL Normal 30.5-36.0 [facility] Comment on above: Order Comment: Speci men Type: BLOOD SPECIMENOrdering Facility: [facility] Address: [address] [place] [address] Performed By: #### 5 7021-8 ####[facility] LABCLIA [id number] [place] [address] MCV (RBC) [Entitic vol] 96.7 fL Normal 80.0-100.0 [facility] Comment on above: Order Comment: Speci men Type: BLOOD SPECIMENOrdering Facility: [facility] Address: [address] [place] [address] Performed By: #### 5 7021-8 ####[facility] LABIA [id number] [place] [address] Monocytes (Bld) [#/Vol] 0.82 10*3/uL Normal <0.87 [facility] Comment on above: Order Comment: Speci men Type: BLOOD SPECIMENOrdering Facility: [facility] Address: [address] [place] [address] Performed By: #### 5 7021-8 ####[facility] LABCLIA [id number] [place] [address] Monocytes/100 WBC (Bld) 8.7 % Normal [facility] Comment on above: Order Comment: Speci men Type: BLOOD SPECIMENOrdering Facility: [facility] Address: [address] [place] [address] Performed By: #### 5 7021-8 ####[facility] LABCLIA [id number] [place] [address] Neutrophils (Bld) [#/Vol] 6.97 10*3/uL Normal 1.45-7.50 [facility] Comment on above: Order Comment: Speci men Type: BLOOD SPECIMENOrdering Facility: [facility] Address: [address] [place] [address] Performed By: #### 5 7021-8 ####[facility] LABCLIA [id number] [place] [address] Neutrophils/100 WBC (Bld) 73.7 % Normal [facility] Comment on above: Order Comment: Speci men Type: BLOOD SPECIMENOrdering Facility: [facility] Address: [address] [place] [address] Performed By: #### 5 7021-8 ####[facility] LABCLIA [id number] [place] [address] Nucleated RBC (Bld) [#/Vol] 10*3/uL Normal <0.01 [facility] Comment on above: Order Comment: Speci men Type: BLOOD SPECIMENOrdering Facility: [facility] Address: [address] [place] [address] Performed By: #### 5 7021-8 ####[facility] LABCLIA [id number] [place] [address] Nucleated RBC/100 WBC (Bld) [Ratio] 0.0 /100 WBC Normal [facility] Comment on above: Order Comment: Speci men Type: BLOOD SPECIMENOrdering Facility: [facility] Address: [address] [place] [address] Performed By: #### 5 7021-8 ####[facility] LABCLIA [id number] [place] [address] Platelet mean volume (Bld) [Entitic vol] 11.0 fL Normal 9.0-12.7 [facility] Comment on above: Order Comment: Speci men Type: BLOOD SPECIMENOrdering Facility: [facility] Address: [address] [place] [address] Performed By: #### 5 7021-8 ####[facility] LABCLIA [id number] [place] [address] Platelets (Bld) [#/Vol] 238 10*3/uL Normal 150-400 [facility] Comment on above: Order Comment: Speci men Type: BLOOD SPECIMENOrdering Facility: [facility] Address: [address] [place] [address] Performed By: #### 5 7021-8 ####[facility] LABCLIA [id number] [place] [address] RBC (Bld) [#/Vol] 4.20 10*6/uL Normal 3.90-5.20 [facility] Comment on above: Order Comment: Speci men Type: BLOOD SPECIMENOrdering Facility: [facility] Address: [address] [place] [address] Performed By: #### 5 7021-8 ####[facility] LABCLIA [id number] [place] [address] WBC (Bld) [#/Vol] 9.46 10*3/uL Normal 3.70-11.00 [facility] Comment on above: Order Comment: Speci men Type: BLOOD SPECIMENOrdering Facility: [facility] Address: [address] [place] [address] Performed By: #### 5 7021-8 ####[facility] LABCLIA [id number] [place] [address] Calcium.ionized [Moles/Vol]o n 07-02-2023 Calcium.ionized (Bld) [Mass/Vol] 1.23 mmol/L Normal 1.08-1.30 [facility] Comment on above: Order Comment: Speci men Type: BLOOD SPECIMENOrdering Facility: [facility] Address: [address] [place] [address] Performed By: #### 1 995-0 ####[facility] LABCLIA [id number] [place] [address] [place] Calcium.ionized adjusted to pH 7.4 (Bld) [Moles/Vol] 1.20 mmol/L Normal 1.08-1.30 [facility] Comment on above: Order Comment: Speci men Type: BLOOD SPECIMENOrdering Facility: [facility] Address: [address] [place] [address] Performed By: #### 1 995-0 ####[facility] LABCLIA [id number] [place] [address] [place] Comprehensive metabolic 2000 panelon 07-02-2023 Albumin [Mass/Vol] 4.5 g/dL Normal 3.9-4.9 [facility] Comment on above: Order Comment: Speci men Type: BLOOD SPECIMENOrdering Facility: [facility] Address: [address] [place] [address] Performed By: #### 2 4323-8 ####[facility] LABCLIA [id number] [place] [address] ALP [Catalytic activity/Vol] 89 U/L Normal 34-123 [facility] Comment on above: Order Comment: Speci men Type: BLOOD SPECIMENOrdering Facility: [facility] Address: [address] [place] [address] Performed By: #### 2 4323-8 ####[facility] LABCLIA [id number] [place] [address] ALT [Catalytic activity/Vol] 10 U/L Normal 7-38 [facility] Comment on above: Order Comment: Speci men Type: BLOOD SPECIMENOrdering Facility: [facility] Address: [address] [place] [address] Performed By: #### 2 4323-8 ####[facility] LABCLIA [id number] [place] [address] Anion gap [Moles/Vol] 15 mmol/L Normal 9-18 [facility] Comment on above: Order Comment: Speci men Type: BLOOD SPECIMENOrdering Facility: [facility] Address: [address] [place] [address] Performed By: #### 2 4323-8 ####[facility] LABCLIA [id number] [place] [address] AST [Catalytic activity/Vol] 14 U/L Normal 13-35 [facility] Comment on above: Order Comment: Speci men Type: BLOOD SPECIMENOrdering Facility: [facility] Address: [address] [place] [address] Performed By: #### 2 4323-8 ####[facility] LABCLIA [id number] [place] [address] Bilirubin [Mass/Vol] 0.4 mg/dL Normal 0.2-1.3 [facility] Comment on above: Order Comment: Speci men Type: BLOOD SPECIMENOrdering Facility: [facility] Address: [address] [place] [address] Performed By: #### 2 4323-8 ####[facility] LABCLIA [id number] [place] [address] Calcium [Mass/Vol] 9.9 mg/dL Normal 8.5-10.2 [facility] Comment on above: Order Comment: Speci men Type: BLOOD SPECIMENOrdering Facility: [facility] Address: [address] [place] [address] Performed By: #### 2 4323-8 ####[facility] LABCLIA [id number] [place] [address] Chloride [Moles/Vol] 99 mmol/L Normal 97-105 [facility] Comment on above: Order Comment: Speci men Type: BLOOD SPECIMENOrdering Facility: [facility] Address: [address] [place] [address] Performed By: #### 2 4323-8 ####[facility] LABCLIA [id number] [place] [address] CO2 [Moles/Vol] 28 mmol/L Normal 22-30 [facility] Comment on above: Order Comment: Speci men Type: BLOOD SPECIMENOrdering Facility: [facility] Address: [address] [place] [address] Performed By: #### 2 4323-8 ####[facility] LABCLIA [id number] [place] [address] Creatinine [Mass/Vol] 1.31 mg/dL High 0.58-0.96 [facility] Comment on above: Order Comment: Speci men Type: BLOOD SPECIMENOrdering Facility: [facility] Address: [address] [place] [address] Performed By: #### 2 4323-8 ####[facility] LABCLIA [id number] [place] [address] Creatinine and Glomerular filtration rate.predicted panel (S/P/Bld) 42 mL/min/1.73m??? Low >=60 [facility] Comment on above: Order Comment: Speci men Type: BLOOD SPECIMENOrdering Facility: [facility] Address: [address] [place] [address] Result Comment: Sugar mated Glomerular Filtration Rate [...] actual GFR. Performed By: #### 2 4323-8 ####[facility] LABCLIA [id number] [place] [address] Glucose [Mass/Vol] 183 mg/dL High 74-99 [facility] Comment on above: Order Comment: Speci men Type: BLOOD SPECIMENOrdering Facility: [facility] Address: [address] [place] [address] Result Comment: The [place] [employer] (ADA) provides guidance for cutoff [...] Standards of Medical Care in Diabetes 2016, [place] [employer]. Diabetes Care. 2016.39(Suppl 1). Performed By: #### 2 4323-8 ####[facility] LABCLIA [id number] [place] [address] Potassium [Moles/Vol] 3.9 mmol/L Normal 3.7-5.1 [facility] Comment on above: Order Comment: Speci men Type: BLOOD SPECIMENOrdering Facility: [facility] Address: [address] [place] [address] Performed By: #### 2 4323-8 ####[facility] LABCLIA [id number] [place] [address] Protein [Mass/Vol] 7.2 g/dL Normal 6.3-8.0 [facility] Comment on above: Order Comment: Speci men Type: BLOOD SPECIMENOrdering Facility: [facility] Address: [address] [place], [place] [address] Performed By: #### 2 4323-8 ####[facility] LABCLIA [id number] [place] [address] Sodium [Moles/Vol] 142 mmol/L Normal 136-144 [facility] Comment on above: Order Comment: Speci men Type: BLOOD SPECIMENOrdering Facility: [facility] Address: [address] [place] [id number] Performed By: #### 2 4323-8 ####[facility] LABCLIA [id number] [place] [address] Urea nitrogen [Mass/Vol] 29 mg/dL High 7-21 [facility] Comment on above: Order Comment: Speci men Type: BLOOD SPECIMENOrdering Facility: [facility] Address: [address] [place] [address] Performed By: #### 2 4323-8 ####[facility] LABCLIA [id number] [place] [address] CBC W Auto Differential pane l (Bld)on 05-21-2023 Basophils (Bld) [#/Vol] 0.07 10*3/uL <0.11 k/uL [facility] Basophils/100 WBC (Bld) 0.6 % [facility] Differential cell count method Nom (Bld) Auto [facility] Eosinophils (Bld) [#/Vol] 0.17 10*3/uL <0.46 k/uL [facility] Eosinophils/100 WBC (Bld) 1.6 % [facility] Erythrocyte distribution width (RBC) [Ratio] 12.8 % 11.5 - 15.0 % [facility] Hematocrit (Bld) [Volume fraction] 38.7 % 36.0 - 46.0 % [facility] Hemoglobin (Bld) [Mass/Vol] 13.0 g/dL 11.5 - 15.5 g/dL [facility] Immature granulocytes (Bld) [#/Vol] 0.04 10*3/uL <0.10 k/uL [facility] Immature granulocytes/100 WBC (Bld) 0.4 % [facility] Lymphocytes (Bld) [#/Vol] 1.74 10*3/uL 1.00 - 4.00 k/uL [facility] Lymphocytes/100 WBC (Bld) 16.0 % [facility] MCH (RBC) [Entitic mass] 31.7 pg 26.0 - 34.0 pg [facility] MCHC (RBC) [Mass/Vol] 33.6 g/dL 30.5 - 36.0 g/dL [facility] MCV (RBC) [Entitic vol] 94.4 fL 80.0 - 100.0 fL [facility] Monocytes (Bld) [#/Vol] 0.94 10*3/uL High <0.87 k/uL [facility] Monocytes/100 WBC (Bld) 8.6 % [facility] Neutrophils (Bld) [#/Vol] 7.94 10*3/uL High 1.45 - 7.50 k/uL [facility] Neutrophils/100 WBC (Bld) 72.8 % [facility] Nucleated RBC (Bld) [#/Vol] <0.01 k/uL [facility] Nucleated RBC/100 WBC (Bld) [Ratio] 0.0 /100 WBC [facility] Platelet mean volume (Bld) [Entitic vol] 12.1 fL 9.0 - 12.7 fL [facility] Platelets (Bld) [#/Vol] 293 10*3/uL 150 - 400 k/uL [facility] RBC (Bld) [#/Vol] 4.10 10*6/uL 3.90 - 5.2 0 m/uL [facility] WBC (Bld) [#/Vol] 10.90 10*3/uL 3.70 - 11.00 k/uL [facility] Comprehensive metabolic 2000 panelon 05-21-2023 Albumin [Mass/Vol] 4.6 g/dL 3.9 - 4.9 g/dL [facility] ALP [Catalytic activity/Vol] 96 U/L 34 - 123 U/L [facility] ALT [Catalytic activity/Vol] 13 U/L 7 - 38 U/L [facility] Anion gap [Moles/Vol] 13 mmol/L 9 - 18 mmol/L [facility] AST [Catalytic activity/Vol] 18 U/L 13 - 35 U/L [facility] Bilirubin [Mass/Vol] 0.3 mg/dL 0.2 - 1 .3 mg/dL [facility] Calcium [Mass/Vol] 10.0 mg/dL 8.5 - 10. 2 mg/dL [facility] Chloride [Moles/Vol] 101 mmol/L 97 - 10 5 mmol/L [facility] CO2 [Moles/Vol] 26 mmol/L 22 - 30 mmol/L [facility] Creatinine [Mass/Vol] 1.32 mg/dL High 0.58 - 0.96 mg/dL [facility] Estimated Glomerular Filtration Rate 41 mL/min/1.73m Low >=60 mL/min/1.73 m [facility] Glucose [Mass/Vol] 119 mg/dL High 74 - 99 mg/dL [facility] Potassium [Moles/Vol] 4.1 mmol/L 3.7 - 5.1 mmol/L [facility] Protein [Mass/Vol] 7.6 g/dL 6.3 - 8.0 g/dL [facility] Sodium [Moles/Vol] 140 mmol/L 136 - 144 mmol/L [facility] Urea nitrogen [Mass/Vol] 32 mg/dL High 7 - 21 mg/dL [facility] Calcium.ionized [Moles/Vol]o n 05-20-2023 Calcium.ionized (Bld) [Mass/Vol] 1.23 mmol/L 1.08 - 1.30 mmol/L [facility] Calcium.ionized adjusted to pH 7.4 (Bld) [Moles/Vol] 1.20 mmol/L 1.08 - 1.30 mmol/L [facility] CA 15-3 BLDon 05-01-2023 Cancer Ag 15-3 Qn 9.9 U/mL <26.0 U/mL [facility] CA 27.29 BLOODon 05-01-2023 Cancer Ag 27-29 Qn 12.5 [arb'U]/mL <38.6 U/mL [facility] CBC W Auto Differential pane l (Bld)on 05-01-2023 Basophils (Bld) [#/Vol] 0.06 10*3/uL <0.11 k/uL [facility] Basophils/100 WBC (Bld) 0.6 % [facility] Differential cell count method Nom (Bld) Auto [facility] Eosinophils (Bld) [#/Vol] 0.18 10*3/uL <0.46 k/uL [facility] Eosinophils/100 WBC (Bld) 1.9 % [facility] Erythrocyte distribution width (RBC) [Ratio] 12.7 % 11.5 - 15.0 % [facility] Hematocrit (Bld) [Volume fraction] 36.4 % 36.0 - 46.0 % [facility] Hemoglobin (Bld) [Mass/Vol] 12.2 g/dL 11.5 - 15.5 g/dL [facility] Immature granulocytes (Bld) [#/Vol] 0.03 10*3/uL <0.10 k/uL [facility] Immature granulocytes/100 WBC (Bld) 0.3 % [facility] Lymphocytes (Bld) [#/Vol] 1.62 10*3/uL 1.00 - 4.00 k/uL [facility] Lymphocytes/100 WBC (Bld) 17.3 % [facility] MCH (RBC) [Entitic mass] 32.0 pg 26.0 - 34.0 pg [facility] MCHC (RBC) [Mass/Vol] 33.5 g/dL 30.5 - 36.0 g/dL [facility] MCV (RBC) [Entitic vol] 95.5 fL 80.0 - 100.0 fL [facility] Monocytes (Bld) [#/Vol] 0.99 10*3/uL High <0.87 k/uL [facility] Monocytes/100 WBC (Bld) 10.6 % [facility] Neutrophils (Bld) [#/Vol] 6.50 10*3/uL 1.45 - 7.50 k/uL [facility] Neutrophils/100 WBC (Bld) 69.3 % [facility] Nucleated RBC (Bld) [#/Vol] <0.01 k/uL [facility] Nucleated RBC/100 WBC (Bld) [Ratio] 0.0 /100 WBC [facility] Platelet mean volume (Bld) [Entitic vol] 11.9 fL 9.0 - 12.7 fL [facility] Platelets (Bld) [#/Vol] 252 10*3/uL 150 - 400 k/uL [facility] RBC (Bld) [#/Vol] 3.81 10*6/uL Low 3.90 - 5.2 0 m/uL [facility] WBC (Bld) [#/Vol] 9.38 10*3/uL 3.70 - 11.00 k/uL [facility] Comprehensive metabolic 2000 panelon 05-01-2023 Albumin [Mass/Vol] 4.3 g/dL 3.9 - 4.9 g/dL [facility] ALP [Catalytic activity/Vol] 93 U/L 34 - 123 U/L [facility] ALT [Catalytic activity/Vol] 14 U/L 7 - 38 U/L [facility] Anion gap [Moles/Vol] 14 mmol/L 9 - 18 mmol/L [facility] AST [Catalytic activity/Vol] 18 U/L 13 - 35 U/L [facility] Bilirubin [Mass/Vol] 0.3 mg/dL 0.2 - 1 .3 mg/dL [facility] Calcium [Mass/Vol] 10.6 mg/dL High 8.5 - 10. 2 mg/dL [facility] Chloride [Moles/Vol] 98 mmol/L 97 - 10 5 mmol/L [facility] CO2 [Moles/Vol] 26 mmol/L 22 - 30 mmol/L [facility] Creatinine [Mass/Vol] 1.38 mg/dL High 0.58 - 0.96 mg/dL [facility] Estimated Glomerular Filtration Rate 39 mL/min/1.73m Low >=60 mL/min/1.73 m [facility] Glucose [Mass/Vol] 207 mg/dL High 74 - 99 mg/dL [facility] Potassium [Moles/Vol] 3.7 mmol/L 3.7 - 5.1 mmol/L [facility] Protein [Mass/Vol] 6.9 g/dL 6.3 - 8.0 g/dL [facility] Sodium [Moles/Vol] 138 mmol/L 136 - 144 mmol/L [facility] Urea nitrogen [Mass/Vol] 39 mg/dL High 7 - 21 mg/dL [facility] Office Visiton 04-01-2023 Follow-up visit [id number] Wayne Barros floyddomenica Lazara 1945 F Date Provider Department Center 04/01/2023 GISSELL WANG KASHIF Marie Family History Problem Relation Age of Onset Coronary artery disease Mother Coronary artery disease Father Coronary artery disease Sister Coronary artery disease Brother Family Status - Relation Status Age at Mother Father Sister Brother Level of Service:[id number] [place] OFFICE/OUTPATIENT ESTABLISHED MOD MDM 30-39 MIN Reason for Visit and Comments: Atrial Fibrillation [80] Hypertension [824858] [facility] 36on 03-27-2023 36 Called and discussed . Thanks. Normal [facility] BNPon 08-24-2022 Natriuretic peptide B (Bld) [Mass/Vol] 1296.0 pg/mL Normal <=1,800.0 [facility] Comment on above: Performed By: #### B SHOE MAKER, CMP ####[facility] [address] [place] [address]Dr. Swathi Reis CBC W MANUAL DIFFon 08-24-20 22 ATYPICAL LYMPH # Normal [facility] Comment on above: Performed By: #### C NGA ####[facility] [address] [place], [place] [address]Dr. Swathi Reis ATYPICAL LYMPH % Normal [facility] Comment on above: Performed By: #### C NGA ####[facility] [address] [place], [place] [address]Dr. Swathi Reis BAND # 0.1 103/ul Normal 0.0-0.3 [facility] Comment on above: Performed By: #### C NGA ####[facility] [address] [place], [place] [address]Dr. Swathi Reis BAND % 1 % Normal 0-5 [facility] Comment on above: Performed By: #### C NGA ####[facility] [address] [place], [place] [address]Dr. Swathi Reis BASOM # 0.00 103/ul Normal 0.00-0.10 [facility] Comment on above: Performed By: #### C NGA ####[facility] [address] [place], [place] [address]Dr. Swathi Reis BASOM % 0.0 % Critically low 0.2-2.0 [facility] Comment on above: Performed By: #### C NGA ####[facility] [address] [place], [place] [address]Dr. Inessalan Reis BLAST # Normal [facility] Comment on above: Performed By: #### C NGA ####[facility] [address] [place], [place] [address]Dr. Inessalan Reis BLAST % Normal [facility] Comment on above: Performed By: #### C NGA ####[facility] [address] [place] [id number]. Swathi Reis CORRECTED WBC Normal 4.0-11.0 [facility] Comment on above: Performed By: #### C NGA ####[facility] [address] [place] [id number]. Swathi Reis EOS # 0.39 103/ul Normal 0.00-0.70 [facility] Comment on above: Performed By: #### C NGA ####[facility] [address] [place] [id number]. Swathi Reis EOS% 3.0 % Normal 0.9-7.0 [facility] Comment on above: Performed By: #### C NGA ####[facility] [address] [place] [id number]. Swathi Reis HCT 32.6 % Critically low 36.0-48.0 [facility] Comment on above: Performed By: #### C NGA ####[facility] [address] [place] [address]Dr. Swathi Reis HGB 10.6 g/dl Critically low 12.0-16.0 [facility] Comment on above: Performed By: #### C NGA ####[facility] [address] [place] [id number]. Swathi Reis HYPOCHROMASIA SLIGHT Normal The [facility] Comment on above: Performed By: #### C NGA ####[facility] [address] [place] [address]Dr. Swathi Reis LYMPHM # 1.04 103/ul Critically low 1.20-3.80 The [facility] Comment on above: Performed By: #### C NGA ####[facility] [address]ukwuwby[address] [place] [address]Dr. Swathi Ries LYMPHM% 8.0 % Critically low 20.5-60.0 The [facility] Comment on above: Performed By: #### C NGA ####[facility] [address] [place], [place] [id number]. Swathi Reis MCH 29.2 pg Normal 26.7-34.0 The [facility] Comment on above: Performed By: #### C NGA ####[facility] [address]jbe[address]qwf[address] [place] [phone]. Swathi Reis MCHC 32.5 g/dl Normal 29.9-35.2 The [facility] Comment on above: Performed By: #### C NGA ####[facility] Fteairhbyh[address] [place] [phone]. Swathi Reis MCV 89.8 fL Normal 81.0-99.0 The [facility] Comment on above: Performed By: #### C BCYUN ####[facility] Mphasbzhlj[address] [place] [address]Dr. Swathi Reis METAMYELOCYTE # Normal The [facility] Comment on above: Performed By: #### C NGA ####[facility] Rosnidleny[address] [place] [address]Dr. Swathi Reis METAMYELOCYTE % Normal The [facility] Comment on above: Performed By: #### C NGA ####[facility] Tuqqknukvo[address] [place] [address]Dr. Swathi Reis MONOM# 1.17 103/ul Critically high 0.30-0.80 The [facility] Comment on above: Performed By: #### C NGA ####[facility] Ppnskbvqxu26[address] [place] [address]Dr. Swathi Reis MONOM% 9.0 % Normal 1.7-12.0 The [facility] Comment on above: Performed By: #### C NGA ####[facility] Nnastrylzh[address] [place] [address]Dr. Swathi Reis MPV 10.0 fL Normal 9.5-13.5 The [facility] Comment on above: Performed By: #### C NGA ####[facility] Yvulckwncp5[address] [place] [address]Dr. Swathi Reis MYELOCYTE # Normal The [facility] Comment on above: Performed By: #### C NGA ####[facility] Fufwdmjvpe9365 [place], [place] [address]Nq. Swathi Reis MYELOCYTE % Normal The [facility] Comment on above: Performed By: #### C BCYUN ####[facility] Dwhfaiyovj7758 [place], [place] [address]Ce. Swathi Reis NRBC Normal The [facility] Comment on above: Performed By: #### C NGA ####[facility] Pddwxfckvw2546 [place] [phone]. Swathi Reis PLT 353 103/ul Normal 150-450 The [facility] Comment on above: Performed By: #### C NGA ####[facility] Nvbhbwvqka2926 [place], [place] [address]Mn. Swathi Reis RBC 3.63 106/ul Critically low 4.20-5.40 The [facility] Comment on above: Performed By: #### C NGA ####[facility] Cdjskrqfnd2197 [place] [phone]. Swathi Reis RDW 13.6 % Normal 11.0-15.0 [facility] Comment on above: Performed By: #### C NGA ####[facility] Iqyrkyvcpz6214 [place] [phone]. Swathi Reis SEG # 10.27 103/ul Critically high 1.40-6.50 [facility] Comment on above: Performed By: #### C NGA ####[facility] Sixwgfggvc5507 [place] [phone]. Swathi Reis SEG % 79.0 % Critically high 43.0-75.0 The [facility] Comment on above: Performed By: #### C NGA ####[facility] Ugbqgcdaig2817 [place] [phone]. Swathi Reis WBC 13.0 103/ul Critically high 4.0-11.0 The [facility] Comment on above: Performed By: #### C NGA ####[facility] Ajegjnzmdm7644 [place] [phone]. Swathi Reis DIGOXINon 08-24-2022 DIG 1.8 ng/mL Normal 0.9-2.0 The [facility] Comment on above: Performed By: #### D IG ####[facility] Elwttxonlf6[address] [place] [address]Dr. Swathi Reis PROF 14(COMP METB)on 022 Albumin [Mass/Vol] 2.4 g/dL Critically low 3.4-5.0 [facility] Comment on above: Performed By: #### B SHOE MAKER, CMP ####[facility] Luzvxutozv[address] [place], [place] [address]Dr. Swathi Reis Albumin/Globulin [Mass ratio] 0.5 {ratio} Normal [facility] Comment on above: Performed By: #### B SHOE MAKER, CMP ####[facility] Lckzkgdafc26[address] [place], [place] [address]Dr. Swathi Reis ALP [Catalytic activity/Vol] 93 U/L Normal 46-116 [facility] Comment on above: Performed By: #### B SHOE MAKER, CMP ####[facility] Asqsvnpush032[address] [place], [place] [address]Dr. Swathi Reis ALT [Catalytic activity/Vol] 8 U/L Critically low 14-59 [facility] Comment on above: Performed By: #### B SHOE MAKER, CMP ####[facility] Umzqxbjnyz70[address] [place], [place] [address]Dr. Swathi Reis Anion gap [Moles/Vol] 11.2 mmol/L Normal Th [facility] Comment on above: Performed By: #### B SHOE MAKER, CMP ####[facility] Xstwutflhm[address] [place], [place] [address]Dr. Swathi Reis AST [Catalytic activity/Vol] 14 U/L Critically low 15-37 [facility] Comment on above: Performed By: #### B SHOE MAKER, CMP ####[facility] Vcpmtrmpxg2335[address] [place], [place] [address]Dr. Swathi Reis Bilirubin [Mass/Vol] 0.4 mg/dL Normal 0.2-1.0 [facility] Comment on above: Performed By: #### B SHOE MAKER, CMP ####[facility] Qhokgffxmj4216[address] [place], [place] [address]Dr. Swathi Reis Calcium [Mass/Vol] 9.4 mg/dL Normal 8.5-10.1 [facility] Comment on above: Performed By: #### B SHOE MAKER, CMP ####[facility] Lggmlsldvb235[address] [place], [place] [address]Dr. Swathi Reis Chloride [Moles/Vol] 101 mmol/L Normal 98-107 [facility] Comment on above: Performed By: #### B SHOE MAKER, CMP ####[facility] Bzsghgowrb22[address] [place], [place] [address]Dr. Swathi Reis CO2 [Moles/Vol] 31.0 mmol/L Normal 21.0-32.0 [facility] Comment on above: Performed By: #### B SHOE MAKER, CMP ####[facility] Kwvwhtmqtq8640[address] [place], [place] [address]Dr. Swathi Reis Creatinine [Mass/Vol] 1.49 mg/dL Critically high 0.55-1.02 [facility] Comment on above: Performed By: #### B SHOE MAKER, CMP ####[facility] Poallrhkyi67[address] [place], [place] [address]Dr. Swathi Reis EGFR-AF MONTENEGRIN 41 mL/min/1.73m2 Critically low >=60 [facility] Comment on above: Performed By: #### B SHOE MAKER, CMP ####[facility] Eovytbtfra[address] [place], [place] [address]Dr. Swathi Reis EGFR-NON AF MONTENEGRIN 34 mL/min/1.73m2 Critically low >=60 [facility] Comment on above: Performed By: #### B SHOE MAKER, CMP ####[facility] Nxgcziwgyl0035[address] [place], [place] [address]Dr. Swathi Reis Globulin (S) [Mass/Vol] 4.8 g/dL Normal [facility] Comment on above: Performed By: #### B SHOE MAKER, CMP ####[facility] Tckvjqbllc2160[address] [place], [place] [address]Dr. Swathi Reis Glucose [Mass/Vol] 153 mg/dL Critically high 74-106 [facility] Comment on above: Performed By: #### B SHOE MAKER, CMP ####[facility] Jrzlzrxuil029[address] [place], [place] [address]Dr. Inessatracy Reis Potassium [Moles/Vol] 4.2 mmol/L Normal 3.5-5.1 The [facility] Comment on above: Performed By: #### B SHOE MAKER, CMP ####[facility] Bzqsyajghy7[address] [place], [place] [address]Dr. Swathi Reis Protein [Mass/Vol] 7.2 g/dL Normal 6.4-8.2 The [facility] Comment on above: Performed By: #### B SHOE MAKER, CMP ####[facility] Pfpmcptikw[address] [place], [place] [address]Dr. Swathi Reis Sodium [Moles/Vol] 139 mmol/L Normal 136-145 The [facility] Comment on above: Performed By: #### B SHOE MAKER, CMP ####[facility] Hkmqxzdwnq356[address] [place], [place] [address]Dr. Swathi Reis Urea nitrogen [Mass/Vol] 22.0 mg/dL Critically high 7.0-18.0 [facility] Comment on above: Performed By: #### B SHOE MAKER, CMP ####[facility] Gcewmyytko9[address] [place], [place] [address]Dr. Swathi Reis Urea nitrogen/Creatinine [Mass ratio] 14.8 mg/mg Normal The [facility] Comment on above: Performed By: #### B SHOE MAKER, CMP ####[facility] Fnudxgkrny23[address] [place], [place] [address]Dr. Swathi Reis BNPon 08-23-2022 Natriuretic peptide B (Bld) [Mass/Vol] 1755.0 pg/mL Normal <=1,800.0 The [facility] Comment on above: Performed By: #### B SHOE MAKER, CMP ####[facility] Vfavyqtjmu5425[address] [place], [place] [address]Dr. Swathi Reis CBC AUTO DIFFon 08-23-2022 BASO # 0.1 103/ul Normal 0.0-0.1 [facility] Comment on above: Performed By: #### C BC ####[facility] Otoocswpgc[address] [place], [place] [address]Dr. Swathi Reis Basophils/100 WBC (Bld) 0.7 % Normal 0.2-2.0 The [facility] Comment on above: Performed By: #### C BC ####[facility] Yajskhohgj[address] [place], [place] [address]DrOtto Reis EO # 0.2 103/ul Normal 0.0-0.7 The [facility] Comment on above: Performed By: #### C BC ####[facility] Gmcuivqtzb[address] [place], [place] [address]DrOtto Reis Eosinophils/100 WBC (Bld) 2.2 % Normal 0.9-7.0 [facility] Comment on above: Performed By: #### C BC ####[facility] Evmldjxutt8[address] [place], [place] [address]DrOtto Reis Erythrocyte distribution width (RBC) [Ratio] 13.6 % Normal 11.0-15.0 [facility] Comment on above: Performed By: #### C BC ####[facility] Pibqynkcjk[address] [place], [place] [address]DrOtto Reis Hematocrit (Bld) [Volume fraction] 33.1 % Critically low 36.0-48.0 [facility] Comment on above: Performed By: #### C BC ####[facility] Ydgssnlxvj[address] [place], [place] [address]DrOtto Reis Hemoglobin (Bld) [Mass/Vol] 10.6 g/dL Critically low 12.0-16.0 The [facility] Comment on above: Performed By: #### C BC ####[facility] Wpklawloqm[address] [place], [place] [address]DrOtto Reis IG # 0.12 10e3/ul Critically high 0.00-0.03 [facility] Comment on above: Performed By: #### C BC ####[facility] Macgtcszdg[address]27[address] [place], [place] [address]DrOtto Reis IG % 1.1 % Critically high 0.0-0.5 The [facility] Comment on above: Performed By: #### C BC ####[facility] Jckshewibv52[address] [place], [place] [address]DrOtto Reis LYMPH # 1.6 103/ul Normal 1.2-3.8 The [facility] Comment on above: Performed By: #### C BC ####[facility] Lymryakfms32[address] [place] [address]DrOtto Reis Lymphocytes/100 WBC (Bld) 14.6 % Critically low 20.5-60.0 [facility] Comment on above: Performed By: #### C BC ####[facility] Siidbdssyz3761 [place] [address]DrOtto Reis MANUAL DIFF REQ NO Normal The [facility] Comment on above: Performed By: #### C BC ####[facility] Rnnobjaavp23[address] [place] [address]DrOtto Reis MCH (RBC) [Entitic mass] 29.0 pg Normal 26.7-34.0 The [facility] Comment on above: Performed By: #### C BC ####[facility] Cuutmepmrk[address] [place], [place] [address]DrOtto Reis MCHC (RBC) [Mass/Vol] 32.0 g/dL Normal 29.9-35.2 The [facility] Comment on above: Performed By: #### C BC ####[facility] Doaxvvonuk[address] [place], [place] [address]DrOtto Reis MCV (RBC) [Entitic vol] 90.4 fL Normal 81.0-99.0 The [facility] Comment on above: Performed By: #### C BC ####[facility] Rtwlbshbsl[address] [place], [place] [address]DrOtto Reis MONO # 1.4 103/ul Critically high 0.3-0.8 The [facility] Comment on above: Performed By: #### C BC ####[facility] Iqovgngvua24[address] [place], [place] [address]DrOtto Reis Monocytes/100 WBC (Bld) 12.8 % Critically high 1.7-12.0 The [facility] Comment on above: Performed By: #### C BC ####[facility] Qlqidxfauv20[address] [place], [place] [address]DrOtto Reis NEUT # 7.5 103/ul Critically high 1.4-6.5 [facility] Comment on above: Performed By: #### C BC ####[facility] Zrlxesysoq[address] [place] [address]DrOtto Swathi Reis Neutrophils/100 WBC (Bld) 68.6 % Normal 43.0-75.0 [facility] Comment on above: Performed By: #### C BC ####[facility] Ilmpnplxsx6043 [place] [address]DrOtto Swathi Reis Platelet mean volume (Bld) [Entitic vol] 10.3 fL Normal 9.5-13.5 [facility] Comment on above: Performed By: #### C BC ####[facility] Xtsemvsuux[address] [place], [place] [address]DrOtto Swathi Reis PLT 387 103/ul Normal 150-450 [facility] Comment on above: Performed By: #### C BC ####[facility] Iywmcxxtdw95[address] [place], [place] [address]DrOtto Swathi Reis RBC 3.66 106/ul Critically low 4.20-5.40 [facility] Comment on above: Performed By: #### C BC ####[facility] Pggxshspti85[address] [place], [place] [address]DrOtto Swathi Reis WBC 11.0 103/ul Normal 4.0-11.0 [facility] Comment on above: Performed By: #### C BC ####[facility] Sqkuqpvsio9767[address] [place], [place] [address]DrOtto Swathi Reis DIGOXINon 08-23-2022 DIG 1.6 ng/mL Normal 0.9-2.0 [facility] Comment on above: Performed By: #### D IG ####[facility] Hwuwodmlye[address] [place], [place] [address]DrOtto Swathi Reis POINT OF CARE GLUCOSEon Glucose [Mass/Vol] 167 mg/dL Critically high 74-106 T [facility] Comment on above: Performed By: #### P OCGLUC ####[facility] Hefimylzrt[address]14[address] [place], [place] [address]Dr. Swathi Reis Glucose [Mass/Vol] 114 mg/dL Critically high 74-106 [facility] Comment on above: Performed By: #### P OCGLUC ####[facility] Fqvfqogqxy8211 [place] [address]Dr. Swathi Reis Glucose [Mass/Vol] 272 mg/dL Critically high 74-106 [facility] Comment on above: Performed By: #### P OCGLUC ####[facility] Xpywmpuucr6687 [place] [address]Dr. Swathi Reis PROF 14(COMP METB)on 022 Albumin [Mass/Vol] 2.4 g/dL Critically low 3.4-5.0 [facility] Comment on above: Performed By: #### B SHOE MAKER, CMP ####[facility] Sdwhwnozld14[address] [place], [place] [address]Dr. Swathi Reis Albumin/Globulin [Mass ratio] 0.5 {ratio} Normal [facility] Comment on above: Performed By: #### B SHOE MAKER, CMP ####[facility] Molodmxecn4220[address] [place], [place] [address]Dr. Swathi Reis ALP [Catalytic activity/Vol] 104 U/L Normal 46-116 [facility] Comment on above: Performed By: #### B SHOE MAKER, CMP ####[facility] Njspdbsrwc583[address] [place], [place] [address]Dr. Swathi Reis ALT [Catalytic activity/Vol] 7 U/L Critically low 14-59 [facility] Comment on above: Performed By: #### B SHOE MAKER, CMP ####[facility] Bnntbolale8558[address] [place], [place] [address]Dr. Swathi Reis Anion gap [Moles/Vol] 11.1 mmol/L Normal [facility] Comment on above: Performed By: #### B SHOE MAKER, CMP ####[facility] Qcsmkjltlq8465[address] [place], [place] [address]Dr. Swathi Reis AST [Catalytic activity/Vol] 19 U/L Normal 15-37 [facility] Comment on above: Performed By: #### B SHOE MAKER, CMP ####[facility] Bdjjbavcjz1413[address] [place], [place] [address]Dr. Swathi Reis Bilirubin [Mass/Vol] 0.4 mg/dL Normal 0.2-1.0 The [facility] Comment on above: Performed By: #### B SHOE MAKER, CMP ####[facility] Kubhzrlmsl3516[address] [place], [place] [address]Dr. Swathi Reis Calcium [Mass/Vol] 9.5 mg/dL Normal 8.5-10.1 [facility] Comment on above: Performed By: #### B SHOE MAKER, CMP ####[facility] Pkkxeumytw9187[address] [place], [place] [address]Dr. Swathi Reis Chloride [Moles/Vol] 101 mmol/L Normal 98-107 [facility] Comment on above: Performed By: #### B SHOE MAKER, CMP ####[facility] Ruarxvbjcm[address] [place], [place] [address]Dr. Swathi Reis CO2 [Moles/Vol] 30.7 mmol/L Normal 21.0-32.0 The [facility] Comment on above: Performed By: #### B SHOE MAKER, CMP ####[facility] Gdjobymkre7849[address] [place], [place] [address]Dr. Swathi Reis Creatinine [Mass/Vol] 1.53 mg/dL Critically high 0.55-1.02 [facility] Comment on above: Performed By: #### B SHOE MAKER, CMP ####[facility] Aeaadbwbik5587[address] [place], [place] [address]Dr. Swathi Chato EGFR-AF MONTENEGRIN 40 mL/min/1.73m2 Critically low >=60 The [facility] Comment on above: Performed By: #### B SHOE MAKER, CMP ####[facility] Zzkqpdxmak0554[address] [place], [place] [address]Dr. Inessatracy Chato EGFR-NON AF MONTENEGRIN 33 mL/min/1.73m2 Critically low >=60 The [facility] Comment on above: Performed By: #### B SHOE MAKER, CMP ####[facility] Pzmylqevmo0416[address] [place], [place] [address]Dr. Swathi Reis Globulin (S) [Mass/Vol] 4.9 g/dL Normal [facility] Comment on above: Performed By: #### B SHOE MAKER, CMP ####[facility] Kxnekgtkoi33[address] [place] [address]Dr. Swathi Reis Glucose [Mass/Vol] 139 mg/dL Critically high 74-106 [facility] Comment on above: Performed By: #### B SHOE MAKER, CMP ####[facility] Ujlzbdvczd[address] [place], [place] [address]Dr. Swathi Reis Potassium [Moles/Vol] 3.8 mmol/L Normal 3.5-5.1 [facility] Comment on above: Performed By: #### B SHOE MAKER, CMP ####[facility] Yjnjeatyld9312[address] [place], [place] [address]Dr. Swathi Reis Protein [Mass/Vol] 7.3 g/dL Normal 6.4-8.2 [facility] Comment on above: Performed By: #### B SHOE MAKER, CMP ####[facility] Kvmgwdplfu6820[address] [place], [place] [address]Dr. Swathi Reis Sodium [Moles/Vol] 139 mmol/L Normal 136-145 [facility] Comment on above: Performed By: #### B SHOE MAKER, CMP ####[facility] Ajszzpbjfv8380[address] [place], [place] [address]Dr. Swathi Reis Urea nitrogen [Mass/Vol] 26.0 mg/dL Critically high 7.0-18.0 [facility] Comment on above: Performed By: #### B SHOE MAKER, CMP ####[facility] Xuebkshthn[address] [place], [place] [address]Dr. Swathi Reis Urea nitrogen/Creatinine [Mass ratio] 17.0 mg/mg Normal [facility] Comment on above: Performed By: #### B SHOE MAKER, CMP ####[facility] Vglnwsuxgz[address] [place], [place] [address]Dr. Swathi Reis BNPon 08-22-2022 Natriuretic peptide B (Bld) [Mass/Vol] 3439.0 pg/mL Critically high <=1,800.0 [facility] Comment on above: Performed By: #### C MP, BNP ####[facility] Rhscjcdcck[address] [place], [place] [address]Dr. Swathi Reis CBC AUTO DIFFon 08-22-2022 BASO # 0.1 103/ul Normal 0.0-0.1 The [facility] Comment on above: Performed By: #### C BC ####[facility] F[address]ulefzw[address] [place] [address]Dr. Swathi Reis Basophils/100 WBC (Bld) 0.6 % Normal 0.2-2.0 The [facility] Comment on above: Performed By: #### C BC ####[facility] Mjobvttoxx7784 [place] [address]Dr. Swathi Reis EO # 0.3 103/ul Normal 0.0-0.7 The [facility] Comment on above: Performed By: #### C BC ####[facility] Zkuwtxycfk33[address] [place] [address]Dr. Swathi Reis Eosinophils/100 WBC (Bld) 2.1 % Normal 0.9-7.0 The [facility] Comment on above: Performed By: #### C BC ####[facility] Kcqzdxrxdu4852 [place] [address]Dr. Swathi Reis Erythrocyte distribution width (RBC) [Ratio] 13.8 % Normal 11.0-15.0 The [facility] Comment on above: Performed By: #### C BC ####[facility] Ywjzhjwawu[address] [place] [address]Dr. Swathi Reis Hematocrit (Bld) [Volume fraction] 31.9 % Critically low 36.0-48.0 The [facility] Comment on above: Performed By: #### C BC ####[facility] Zfzjcpkohy70[address] [place] [address]Dr. Swathi Reis Hemoglobin (Bld) [Mass/Vol] 10.2 g/dL Critically low 12.0-16.0 The [facility] Comment on above: Performed By: #### C BC ####[facility] Qfkimrexbg65[address] [place] [address]Dr. Swathi Reis IG # 0.10 10e3/ul Critically high 0.00-0.03 [facility] Comment on above: Performed By: #### C BC ####[facility] Sayvcdiski[address] [place] [phone]. Swathi Reis IG % 0.8 % Critically high 0.0-0.5 The [facility] Comment on above: Performed By: #### C BC ####[facility] Saexrcvzkj8349 [place] [phone]. Swathi Reis LYMPH # 1.2 103/ul Normal 1.2-3.8 The [facility] Comment on above: Performed By: #### C BC ####[facility] Nocmpfmipp9576 [place] [phone]. Swathi Reis Lymphocytes/100 WBC (Bld) 9.6 % Critically low 20.5-60.0 [facility] Comment on above: Performed By: #### C BC ####[facility] Pkokxfsnmy2805 [place] [phone]. Swathi Reis MANUAL DIFF REQ NO Normal The [facility] Comment on above: Performed By: #### C BC ####[facility] Bxxrykdwul3403 [place] [phone]. Swathi Reis MCH (RBC) [Entitic mass] 28.7 pg Normal 26.7-34.0 The [facility] Comment on above: Performed By: #### C BC ####[facility] Gsjfyzonbs9147 [place] [phone]. Swathi Reis MCHC (RBC) [Mass/Vol] 32.0 g/dL Normal 29.9-35.2 The [facility] Comment on above: Performed By: #### C BC ####[facility] Znrybkjfzg2403 [place] [phone]. Swathi Reis MCV (RBC) [Entitic vol] 89.9 fL Normal 81.0-99.0 The [facility] Comment on above: Performed By: #### C BC ####[facility] Rzqcdpejwy1368 [place] [phone]. Swathi Chato MONO # 1.0 103/ul Critically high 0.3-0.8 The [facility] Comment on above: Performed By: #### C BC ####[facility] Fwejbjywrc2641 [place] [phone]. Swathi Reis Monocytes/100 WBC (Bld) 8.5 % Normal 1.7-12.0 The [facility] Comment on above: Performed By: #### C BC ####[facility] Dfsemanqmc0692 [place] [phone]. Swathi Reis NEUT # 9.6 103/ul Critically high 1.4-6.5 The [facility] Comment on above: Performed By: #### C BC ####[facility] Qjwdhpxwjv7958 [place] [phone]. Swathi Reis Neutrophils/100 WBC (Bld) 78.4 % Critically high 43.0-75.0 The [facility] Comment on above: Performed By: #### C BC ####[facility] Yorehocizs[address] [place] [address]Dr. Swathi Reis Platelet mean volume (Bld) [Entitic vol] 10.4 fL Normal 9.5-13.5 The [facility] Comment on above: Performed By: #### C BC ####[facility] Eaozoygbmj3308 [place] [phone]. Swathi Reis PLT 338 103/ul Normal 150-450 The [facility] Comment on above: Performed By: #### C BC ####[facility] Rjrmbinmdb3037 [place] [phone]. Swathi Reis RBC 3.55 106/ul Critically low 4.20-5.40 The [facility] Comment on above: Performed By: #### C BC ####[facility] [address] [place], [place] [id number]. Swathi Reis WBC 12.2 103/ul Critically high 4.0-11.0 The [facility] Comment on above: Performed By: #### C BC ####[facility] [address]otsuazxyx[address] [place] [phone]. Swathi Reis DIGOXINon 08-22-2022 DIG 1.5 ng/mL Normal 0.9-2.0 The [facility] Comment on above: Performed By: #### D IG ####[facility] Dtxkhvffqg1715 [place] [id number]. Inessatracy Chato POINT OF CARE GLUCOSEon 07-26 Glucose [Mass/Vol] 222 mg/dL Critically high -106 [facility] Comment on above: Performed By: #### P OCGLUC ####[facility] Yodhxnslco220[address] [place] [phone]. Swathi Reis Glucose [Mass/Vol] 133 mg/dL Critically high 74-106 [facility] Comment on above: Performed By: #### P OCGLUC ####[facility] Sdhfthrlrt[address] [place] [address]Dr. Inessatracy Chato Glucose [Mass/Vol] 299 mg/dL Critically high -106 [facility] Comment on above: Performed By: #### P OCGLUC ####[facility] Haowunomqd01[address] [place] [address]Dr. Swathi Reis Glucose [Mass/Vol] 151 mg/dL Critically high -106 [facility] Comment on above: Performed By: #### P OCGLUC ####[facility] Hycrdihwwm[address] [place] [address]Dr. Swathi Reis PROF 14(COMP METB)on 022 Albumin [Mass/Vol] 2.4 g/dL Critically low 3.4-5.0 Th [facility] Comment on above: Performed By: #### C MP, BNP ####[facility] Ffnifgbzon4072 [place] [address]Dr. Swathi Reis Albumin/Globulin [Mass ratio] 0.6 {ratio} Normal [facility] Comment on above: Performed By: #### C MP, BNP ####[facility] Jucusenpkb3[address] [place] [address]Dr. Swathi Reis ALP [Catalytic activity/Vol] 98 U/L Normal 46-116 [facility] Comment on above: Performed By: #### C MP, BNP ####[facility] Bzdstrxjqw2502 [place] [address]Dr. Swathi Reis ALT [Catalytic activity/Vol] 13 U/L Critically low 14-59 [facility] Comment on above: Performed By: #### C MP, BNP ####[facility] Pftvdummrl0843 [place] [address]Dr. Swathi Reis Anion gap [Moles/Vol] 12.4 mmol/L Normal Th [facility] Comment on above: Performed By: #### C MP, BNP ####[facility] Enjgvjayqw[address] [place] [address]Dr. Swathi Reis AST [Catalytic activity/Vol] 23 U/L Normal 15-37 [facility] Comment on above: Performed By: #### C MP, BNP ####[facility] Mbsfonegtf8501 [place] [address]Dr. Swathi Chato Bilirubin [Mass/Vol] 0.6 mg/dL Normal 0.2-1.0 [facility] Comment on above: Performed By: #### C MP, BNP ####[facility] Dawdjekmbz[address] [place], [place] [address]Dr. Swathi Chato Calcium [Mass/Vol] 8.9 mg/dL Normal 8.5-10.1 [facility] Comment on above: Performed By: #### C MP, BNP ####[facility] Ppkatnunnl[address] [place], [place] [address]Dr. Swathi Chato Chloride [Moles/Vol] 100 mmol/L Normal 98-107 [facility] Comment on above: Performed By: #### C MP, BNP ####[facility] Ncrtbxqvvp[address] [place], [place] [address]Dr. Swathi Reis CO2 [Moles/Vol] 30.6 mmol/L Normal 21.0-32.0 [facility] Comment on above: Performed By: #### C MP, BNP ####[facility] Gnakazybga[address] [place], [place] [address]Dr. Swathi Chato Creatinine [Mass/Vol] 1.54 mg/dL Critically high 0.55-1.02 [facility] Comment on above: Performed By: #### C MP, BNP ####[facility] Jaoshlfcds[address] [place], [place] [address]Dr. Inessatracy Chato EGFR-AF MONTENEGRIN 40 mL/min/1.73m2 Critically low >=60 [facility] Comment on above: Performed By: #### C MP, BNP ####[facility] Gsgbtiwnpv[address] [place], [place] [address]Dr. Swathi Reis EGFR-NON AF MONTENEGRIN 33 mL/min/1.73m2 Critically low >=60 [facility] Comment on above: Performed By: #### C MP, BNP ####[facility] Nrlxffbjqf35[address] [place], [place] [address]Dr. Swathi Reis Globulin (S) [Mass/Vol] 3.9 g/dL Normal [facility] Comment on above: Performed By: #### C MP, BNP ####[facility] Hltgfayyzx7[address] [place], [place] [address]Dr. Swathi Reis Glucose [Mass/Vol] 143 mg/dL Critically high 74-106 [facility] Comment on above: Performed By: #### C MP, BNP ####[facility] Pfhcsxkzao39[address] [place], [place] [address]Dr. Swathi Chato Potassium [Moles/Vol] 4.0 mmol/L Normal 3.5-5.1 [facility] Comment on above: Performed By: #### C MP, BNP ####[facility] Ebsbllscan14[address] [place], [place] [address]Dr. Swathi Reis Protein [Mass/Vol] 6.3 g/dL Critically low 6.4-8.2 Th [facility] Comment on above: Performed By: #### C MP, BNP ####[facility] Cmlsvojlaa[address] [place], [place] [address]Dr. Swathi Reis Sodium [Moles/Vol] 139 mmol/L Normal 136-145 [facility] Comment on above: Performed By: #### C MP, BNP ####[facility] Arymbgeeiq06[address] [place], [place] [address]Dr. Swathi Reis Urea nitrogen [Mass/Vol] 27.0 mg/dL Critically high 7.0-18.0 [facility] Comment on above: Performed By: #### C MP, BNP ####[facility] Mxbxniuexn6448 [place] [address]Dr. Swathi Reis Urea nitrogen/Creatinine [Mass ratio] 17.5 mg/mg Normal The [facility] Comment on above: Performed By: #### C MP, BNP ####[facility] Wujvdgrcjf[address] [place], [place] [address]Dr. Swathi Reis VANCOMYCIN TROUGHon 08-22-20 VANCOMYCIN TROUGH 13.2 ug/ml Normal 5.0-20.0 The [facility] Comment on above: Performed By: #### V ANCT ####[facility] Ylgufdboab[address] [place], [place] [address]Dr. Swathi Reis XR CHEST 2 Von 08-22-2022 XR CHEST 2 V Normal The [facility] BNPon 08-21-2022 Natriuretic peptide B (Bld) [Mass/Vol] 3683.0 pg/mL Critically high <=1,800.0 The [facility] Comment on above: Performed By: #### C MP, BNP ####[facility] Uvxeyenumq[address] [place], [place] [address]Dr. Swathi Reis CBC AUTO DIFFon 08-21-2022 BASO # 0.1 103/ul Normal 0.0-0.1 The [facility] Comment on above: Performed By: #### C BC ####[facility] Uxzpshdsjs[address] [place], [place] [address]Dr. Swathi Chato Basophils/100 WBC (Bld) 0.4 % Normal 0.2-2.0 The [facility] Comment on above: Performed By: #### C BC ####[facility] Nbnfascryn[address] [place], [place] [address]Dr. Swathi Chato EO # 0.2 103/ul Normal 0.0-0.7 The [facility] Comment on above: Performed By: #### C BC ####[facility] Sapajgshxk[address] [place], [place] [address]Dr. Swathi Chato Eosinophils/100 WBC (Bld) 1.8 % Normal 0.9-7.0 The [facility] Comment on above: Performed By: #### C BC ####[facility] Zoatawpgrf2[address] [place], [place] [address]Dr. Swathi Chato Erythrocyte distribution width (RBC) [Ratio] 14.4 % Normal 11.0-15.0 The [facility] Comment on above: Performed By: #### C BC ####[facility] Nuplcwxggr6161 [place] [address]Dr. Swathi Reis Hematocrit (Bld) [Volume fraction] 33.5 % Critically low 36.0-48.0 The [facility] Comment on above: Performed By: #### C BC ####[facility] Wizzrkoyij4938 [place] [address]Dr. Inessatracy Reis Hemoglobin (Bld) [Mass/Vol] 10.8 g/dL Critically low 12.0-16.0 The [facility] Comment on above: Performed By: #### C BC ####[facility] Aqdrxenbgh79[address] [place] [address]Dr. Swathi Reis IG # 0.06 10e3/ul Critically high 0.00-0.03 [facility] Comment on above: Performed By: #### C BC ####[facility] Cnwncwrpdi[address] [place], [place] [address]Dr. Swathi Reis IG % 0.5 % Normal 0.0-0.5 [facility] Comment on above: Performed By: #### C BC ####[facility] Hnhwiopxxv[address] [place], [place] [address]Dr. Swathi Reis LYMPH # 0.9 103/ul Critically low 1.2-3.8 The [facility] Comment on above: Performed By: #### C BC ####[facility] Wdrwapnloc5028 [place] [address]Dr. Swathi Reis Lymphocytes/100 WBC (Bld) 7.2 % Critically low 20.5-60.0 The [facility] Comment on above: Performed By: #### C BC ####[facility] Nwfevfogoo[address] [place], [place] [address]Dr. Swathi Reis MANUAL DIFF REQ NO Normal The [facility] Comment on above: Performed By: #### C BC ####[facility] Dnlmuuqlae[address] [place], [place] [address]Dr. Swathi Reis MCH (RBC) [Entitic mass] 29.0 pg Normal 26.7-34.0 The [facility] Comment on above: Performed By: #### C BC ####[facility] Syjuubjxts28[address] [place] [address]Dr. Swathi Reis MCHC (RBC) [Mass/Vol] 32.2 g/dL Normal 29.9-35.2 The [facility] Comment on above: Performed By: #### C BC ####[facility] Hgctnhdxaa7171 [place] [address]Dr. Swathi Reis MCV (RBC) [Entitic vol] 90.1 fL Normal 81.0-99.0 The [facility] Comment on above: Performed By: #### C BC ####[facility] Tfapmrcldy3397 [place] [address]Dr. Swathi Chato MONO # 0.8 103/ul Normal 0.3-0.8 The [facility] Comment on above: Performed By: #### C BC ####[facility] Fseevjvvib2630 [place] [address]Dr. Inessatracy Reis Monocytes/100 WBC (Bld) 6.3 % Normal 1.7-12.0 The [facility] Comment on above: Performed By: #### C BC ####[facility] Nprsikahaa9391 [place] [address]Dr. Swathi Reis NEUT # 10.7 103/ul Critically high 1.4-6.5 The [facility] Comment on above: Performed By: #### C BC ####[facility] Hxthabtolp9424 [place] [address]Dr. Inessatracy Reis Neutrophils/100 WBC (Bld) 83.8 % Critically high 43.0-75.0 The [facility] Comment on above: Performed By: #### C BC ####[facility] Givahqxsjr[address] [place], [place] [address]Dr. Swathi Chato Platelet mean volume (Bld) [Entitic vol] 10.7 fL Normal 9.5-13.5 The [facility] Comment on above: Performed By: #### C BC ####[facility] Vzlmhyvvid6667 [place] [phone]. Swathi Reis PLT 324 103/ul Normal 150-450 The [facility] Comment on above: Performed By: #### C BC ####[facility] Pngyxhbtpg7943 [place] [phone]. Swathi Reis RBC 3.72 106/ul Critically low 4.20-5.40 [facility] Comment on above: Performed By: #### C BC ####[facility] Ojcimoghtw8257 [place] [address]Dr. Swathi Reis WBC 12.8 103/ul Critically high 4.0-11.0 [facility] Comment on above: Performed By: #### C BC ####[facility] Lpgueopdya2938 [place] [address]Dr. Swathi Reis DIGOXINon 08-21-2022 DIG 1.3 ng/mL Normal 0.9-2.0 [facility] Comment on above: Performed By: #### D IG ####[facility] Lymuarceix[address] [place], [place] [address]Dr. Swathi Reis POINT OF CARE GLUCOSEon 07-25 Glucose [Mass/Vol] 129 mg/dL Critically high 74-106 [facility] Comment on above: Performed By: #### P OCGLUC ####[facility] Zfskltjhzl9770 [place] [address]Dr. Swathi Reis Glucose [Mass/Vol] 145 mg/dL Critically high 74-106 [facility] Comment on above: Performed By: #### P OCGLUC ####[facility] Qahquxjxhn2862 [place] [address]Dr. Swathi Reis Glucose [Mass/Vol] 366 mg/dL Critically high 74-106 [facility] Comment on above: Performed By: #### P OCGLUC ####[facility] Yhekstvxht4905 [place] [address]Dr. Swathi Reis Glucose [Mass/Vol] 149 mg/dL Critically high 74-106 [facility] Comment on above: Performed By: #### P OCGLUC ####[facility] Bozxnuxjwk3406 [place] [address]Dr. Swathi Reis PROF 14(COMP METB)on 022 Albumin [Mass/Vol] 2.4 g/dL Critically low 3.4-5.0 Th [facility] Comment on above: Performed By: #### C MP, BNP ####[facility] Vvvodrdwmh6936 [place] [address]Dr. Swathi Reis Albumin/Globulin [Mass ratio] 0.5 {ratio} Normal [facility] Comment on above: Performed By: #### C MP, BNP ####[facility] Lohzltmptx6810 [place] [address]Dr. Swathi Reis ALP [Catalytic activity/Vol] 93 U/L Normal 46-116 [facility] Comment on above: Performed By: #### C MP, BNP ####[facility] Bfyfkngvcv[address] [place], [place] [address]Dr. Swathi Reis ALT [Catalytic activity/Vol] 11 U/L Critically low 14-59 [facility] Comment on above: Performed By: #### C MP, BNP ####[facility] Bkpllbksza[address] [place], [place] [address]Dr. Swathi Reis Anion gap [Moles/Vol] 9.8 mmol/L Normal [facility] Comment on above: Performed By: #### C MP, BNP ####[facility] Xjpduksbeq9425[address] [place], [place] [address]Dr. Swathi Reis AST [Catalytic activity/Vol] 14 U/L Critically low 15-37 [facility] Comment on above: Performed By: #### C MP, BNP ####[facility] Osexaiuijq[address] [place], [place] [address]Dr. Swathi Reis Bilirubin [Mass/Vol] 0.6 mg/dL Normal 0.2-1.0 [facility] Comment on above: Performed By: #### C MP, BNP ####[facility] Rlzonrolnv[address] [place], [place] [address]Dr. Swathi Reis Calcium [Mass/Vol] 9.4 mg/dL Normal 8.5-10.1 [facility] Comment on above: Performed By: #### C MP, BNP ####[facility] Nwnsmzzfdl4454 [place] [address]Dr. Swathi Reis Chloride [Moles/Vol] 102 mmol/L Normal 98-107 [facility] Comment on above: Performed By: #### C MP, BNP ####[facility] Nlfciplszt104[address] [place], [place] [address]Dr. Swathi Reis CO2 [Moles/Vol] 33.4 mmol/L Critically high 21.0-32.0 [facility] Comment on above: Performed By: #### C MP, BNP ####[facility] Hfkpuxlynr8[address] [place], [place] [address]Dr. Swathi Reis Creatinine [Mass/Vol] 1.79 mg/dL Critically high 0.55-1.02 [facility] Comment on above: Performed By: #### C MP, BNP ####[facility] Dflkrapdwv4[address] [place], [place] [address]Dr. Swathi Reis EGFR-AF MONTENEGRIN 33 mL/min/1.73m2 Critically low >=60 [facility] Comment on above: Performed By: #### C MP, BNP ####[facility] Xopujccnez9[address] [place], [place] [address]Dr. Swathi Reis EGFR-NON AF MONTENEGRIN 27 mL/min/1.73m2 Critically low >=60 [facility] Comment on above: Performed By: #### C MP, BNP ####[facility] Zoqxbbbuie[address] [place], [place] [address]Dr. Swathi Resi Globulin (S) [Mass/Vol] 4.9 g/dL Normal [facility] Comment on above: Performed By: #### C MP, BNP ####[facility] Rfcwlvwenl3439[address] [place], [place] [address]Dr. Swathi Reis Glucose [Mass/Vol] 121 mg/dL Critically high 74-106 T [facility] Comment on above: Performed By: #### C MP, BNP ####[facility] Ssllgmpvjo52[address] [place], [place] [address]Dr. Swathi Reis Potassium [Moles/Vol] 3.2 mmol/L Critically low 3.5-5.1 [facility] Comment on above: Performed By: #### C MP, BNP ####[facility] Pjtmxaqjnl7[address] [place], [place] [address]Dr. Swathi Reis Protein [Mass/Vol] 7.3 g/dL Normal 6.4-8.2 [facility] Comment on above: Performed By: #### C MP, BNP ####[facility] Ddeyznaaiu2724[address] [place], [place] [address]Dr. Swathi Reis Sodium [Moles/Vol] 142 mmol/L Normal 136-145 The [facility] Comment on above: Performed By: #### C MP, BNP ####[facility] Iszbizfebn3106[address] [place], [place] [address]Dr. Swathi Reis Urea nitrogen [Mass/Vol] 32.0 mg/dL Critically high 7.0-18.0 [facility] Comment on above: Performed By: #### C MP, BNP ####[facility] Hifatsfxpq1459[address] [place], [place] [address]Dr. Swathi Reis Urea nitrogen/Creatinine [Mass ratio] 17.9 mg/mg Normal [facility] Comment on above: Performed By: #### C MP, BNP ####[facility] Fltxswtbvp[address]84[address] [place], [place] [address]Dr. Swathi Reis BNPon 08-20-2022 Natriuretic peptide B (Bld) [Mass/Vol] 7302.0 pg/mL Critically high <=1,800.0 The [facility] Comment on above: Performed By: #### C MP, BNP ####[facility] Vjyqocvusy[address] [place], [place] [address]Dr. Swathi Reis C. DIFF PCRon 08-20-2022 C. DIFFICILE PCR Positive Critically abnormal NEGATIVE The [facility] Comment on above: Performed By: #### C DIFPOC ####[facility] Opeqgwxpia24[address] [place], [place] [address]Dr. Swathi Chato CBC AUTO DIFFon 08-20-2022 BASO # 0.1 103/ul Normal 0.0-0.1 The [facility] Comment on above: Performed By: #### C BC ####[facility] Ncsktvaknn3662 [place] [phone]. Swathi Reis Basophils/100 WBC (Bld) 0.5 % Normal 0.2-2.0 The [facility] Comment on above: Performed By: #### C BC ####[facility] Ljzwwncymh8010 [place] [phone]. Swathi Reis EO # 0.1 103/ul Normal 0.0-0.7 The [facility] Comment on above: Performed By: #### C BC ####[facility] Amsuwlogcn[address] [place], [place] [address]Dr. Swathi Reis Eosinophils/100 WBC (Bld) 0.3 % Critically low 0.9-7.0 [facility] Comment on above: Performed By: #### C BC ####[facility] Ngxajiqnvi4315[address] [place], [place] [address]Dr. Swathi Reis Erythrocyte distribution width (RBC) [Ratio] 14.5 % Normal 11.0-15.0 [facility] Comment on above: Performed By: #### C BC ####[facility] Cctlvgcque4[address] [place], [place] [address]Dr. Swathi Reis Hematocrit (Bld) [Volume fraction] 31.4 % Critically low 36.0-48.0 [facility] Comment on above: Performed By: #### C BC ####[facility] [address]yr[address]ht[address] [place], [place] [address]Dr. Swathi Reis Hemoglobin (Bld) [Mass/Vol] 10.3 g/dL Critically low 12.0-16.0 [facility] Comment on above: Performed By: #### C BC ####[facility] [address]zveizqrxk[address] [place], [place] [address]Dr. Swathi Reis IG # 0.12 10e3/ul Critically high 0.00-0.03 [facility] Comment on above: Performed By: #### C BC ####[facility] T[address]amximhl[address] [place], [place] [address]Dr. Swathi Reis IG % 0.7 % Critically high 0.0-0.5 The [facility] Comment on above: Performed By: #### C BC ####[facility] Gktzwcddos4174 [place] [phone]. Swathi Reis LYMPH # 0.9 103/ul Critically low 1.2-3.8 The [facility] Comment on above: Performed By: #### C BC ####[facility] Dojzthqbbv2362 [place] [phone]. Swathi Reis Lymphocytes/100 WBC (Bld) 5.6 % Critically low 20.5-60.0 [facility] Comment on above: Performed By: #### C BC ####[facility] Vzphxisxwo0950 [place] [phone]. Swathi Reis MANUAL DIFF REQ NO Normal [facility] Comment on above: Performed By: #### C BC ####[facility] Khheqmdpxh1079 [place] [phone]. Swathi Reis MCH (RBC) [Entitic mass] 29.3 pg Normal 26.7-34.0 [facility] Comment on above: Performed By: #### C BC ####[facility] Nkfbrvrglp2693 [place] [phone]. Swathi Reis MCHC (RBC) [Mass/Vol] 32.8 g/dL Normal 29.9-35.2 The [facility] Comment on above: Performed By: #### C BC ####[facility] Jrzrazjgas7126 [place] [phone]. Swathi Reis MCV (RBC) [Entitic vol] 89.5 fL Normal 81.0-99.0 [facility] Comment on above: Performed By: #### C BC ####[facility] Kxzxhfpzub7552 [place] [phone]. Swathi Reis MONO # 0.9 103/ul Critically high 0.3-0.8 The [facility] Comment on above: Performed By: #### C BC ####[facility] Fvdlsaiaas6843 [place] [phone]. Swathi Reis Monocytes/100 WBC (Bld) 5.6 % Normal 1.7-12.0 The [facility] Comment on above: Performed By: #### C BC ####[facility] Tlpjewqcdf3982 [place] [phone]. Swathi Reis NEUT # 14.1 103/ul Critically high 1.4-6.5 [facility] Comment on above: Performed By: #### C BC ####[facility] Kbpyngljfk6804 [place] [phone]. Swathi Reis Neutrophils/100 WBC (Bld) 87.3 % Critically high 43.0-75.0 [facility] Comment on above: Performed By: #### C BC ####[facility] Wdlyzpncex7967 [place] [phone]. Swathi Reis Platelet mean volume (Bld) [Entitic vol] 10.8 fL Normal 9.5-13.5 [facility] Comment on above: Performed By: #### C BC ####[facility] Fcsovqdwuk7250 [place] [address]Dr. Swathi Reis PLT 303 103/ul Normal 150-450 The [facility] Comment on above: Performed By: #### C BC ####[facility] Bbwzblmqvh0369 [place] [phone]. Swathi Reis RBC 3.51 106/ul Critically low 4.20-5.40 The [facility] Comment on above: Performed By: #### C BC ####[facility] Chfqfbgoll9014 [place] [phone]. Swathi Reis WBC 16.2 103/ul Critically high 4.0-11.0 The [facility] Comment on above: Performed By: #### C BC ####[facility] Yvxzzyglvw4201 [place] [phone]. Swathi Reis DIGOXINon 08-20-2022 DIG 1.2 ng/mL Normal 0.9-2.0 The [facility] Comment on above: Performed By: #### D IG ####[facility] Oqfmpvwlwi7846 [place] [address]Dr. Swathi Reis POINT OF CARE GLUCOSEon 07-25 Glucose [Mass/Vol] 180 mg/dL Critically high 74-106 [facility] Comment on above: Performed By: #### P OCGLUC ####[facility] Rsfmhkoguc6780 [place] [address]Dr. Swathi Reis Glucose [Mass/Vol] 115 mg/dL Critically high 74-106 [facility] Comment on above: Performed By: #### P OCGLUC ####[facility] Mfcjgvemct8532 [place] [address]Dr. Swathi Reis Glucose [Mass/Vol] 235 mg/dL Critically high 74-106 [facility] Comment on above: Performed By: #### P OCGLUC ####[facility] [address]avmvrcrz[address] [place], [place] [address]Dr. Swathi Reis PROF 14(COMP METB)on 022 Albumin [Mass/Vol] 2.5 g/dL Critically low 3.4-5.0 [facility] Comment on above: Performed By: #### C MP, BNP ####[facility] Qabsgepgpw[address] [place], [place] [address]Dr. Swathi Reis Albumin/Globulin [Mass ratio] 0.6 {ratio} Normal [facility] Comment on above: Performed By: #### C MP, BNP ####[facility] Zxoqhuvhsl[address] [place], [place] [address]Dr. Swathi Reis ALP [Catalytic activity/Vol] 69 U/L Normal 46-116 [facility] Comment on above: Performed By: #### C MP, BNP ####[facility] [address]dmkekue[address] [place], [place] [address]Dr. Swathi Reis ALT [Catalytic activity/Vol] 11 U/L Critically low 14-59 [facility] Comment on above: Performed By: #### C MP, BNP ####[facility] [address]xshnktqtu[address] [place], [place] [address]Dr. Swathi Reis Anion gap [Moles/Vol] 11.7 mmol/L Normal [facility] Comment on above: Performed By: #### C MP, BNP ####[facility] Dobvqqfaja[address] [place], [place] [address]Dr. Swathi Reis AST [Catalytic activity/Vol] 18 U/L Normal 15-37 [facility] Comment on above: Performed By: #### C MP, BNP ####[facility] [address] [place] [address]Dr. Swathi Reis Bilirubin [Mass/Vol] 1.0 mg/dL Normal 0.2-1.0 [facility] Comment on above: Performed By: #### C MP, BNP ####[facility] Thpwcqfklc[address] [place], [place] [address]Dr. Swathi Reis Calcium [Mass/Vol] 9.2 mg/dL Normal 8.5-10.1 [facility] Comment on above: Performed By: #### C MP, BNP ####[facility] Qotymwdudb17[address] [place], [place] [address]Dr. Swathi Reis Chloride [Moles/Vol] 104 mmol/L Normal 98-107 [facility] Comment on above: Performed By: #### C MP, BNP ####[facility] Arpywjwdgl7727[address] [place], [place] [address]Dr. Swathi Reis CO2 [Moles/Vol] 32.7 mmol/L Critically high 21.0-32.0 [facility] Comment on above: Performed By: #### C MP, BNP ####[facility] Oamghkcarg85[address] [place], [place] [address]Dr. Swathi Reis Creatinine [Mass/Vol] 1.86 mg/dL Critically high 0.55-1.02 [facility] Comment on above: Performed By: #### C MP, BNP ####[facility] Hmejlyoyfr6[address] [place], [place] [address]Dr. Swathi Reis EGFR-AF MONTENEGRIN 32 mL/min/1.73m2 Critically low >=60 [facility] Comment on above: Performed By: #### C MP, BNP ####[facility] Ueabmljasm[address] [place], [place] [address]Dr. Swathi Reis EGFR-NON AF MONTENEGRIN 26 mL/min/1.73m2 Critically low >=60 [facility] Comment on above: Performed By: #### C MP, BNP ####[facility] [address]omeyph[address] [place] [address]Dr. Swathi Reis Globulin (S) [Mass/Vol] 4.2 g/dL Normal [facility] Comment on above: Performed By: #### C MP, BNP ####[facility] Lmrxfddfsi8397[address] [place], [place] [address]Dr. Swathi Reis Glucose [Mass/Vol] 135 mg/dL Critically high 74-106 [facility] Comment on above: Performed By: #### C MP, BNP ####[facility] Fxruxnivxs84[address] [place], [place] [address]Dr. Swathi Reis Potassium [Moles/Vol] 3.4 mmol/L Critically low 3.5-5.1 [facility] Comment on above: Performed By: #### C MP, BNP ####[facility] Yhcqzxdgum[address] [place], [place] [address]Dr. Inessatracy Reis Protein [Mass/Vol] 6.7 g/dL Normal 6.4-8.2 [facility] Comment on above: Performed By: #### C MP, BNP ####[facility] Lfaupmdqrg194[address] [place], [place] [address]Dr. Swathi Reis Sodium [Moles/Vol] 145 mmol/L Normal 136-145 [facility] Comment on above: Performed By: #### C MP, BNP ####[facility] Ltarbhlcoy6[address] [place], [place] [address]Dr. Swathi Reis Urea nitrogen [Mass/Vol] 29.0 mg/dL Critically high 7.0-18.0 [facility] Comment on above: Performed By: #### C MP, BNP ####[facility] Vbhzmcfczh8869[address] [place], [place] [address]Dr. Swathi Reis Urea nitrogen/Creatinine [Mass ratio] 15.6 mg/mg Normal [facility] Comment on above: Performed By: #### C MP, BNP ####[facility] Beghriijkm8524[address] [place], [place] [address]Dr. Inessatracy Chato XR CHEST 1 Von 08-20-2022 XR CHEST 1 V Normal [facility] BLOOD GASES BTYon 08-19-2022 02 MODE BIPAP Normal [facility] Comment on above: Performed By: #### A BG ####[facility] [address]doahgoi[address] [place] [address]Dr. Swathi Reis ALLENS TEST Positive Normal [facility] Comment on above: Performed By: #### A BG ####[facility] Bkrtpahkqc4[address] [place] [address]Dr. Swathi Reis Base excess Calc (Bld) [Moles/Vol] 0.8 mmol/L Normal -2.0-2.0 [facility] Comment on above: Performed By: #### A BG ####[facility] Cocysudtwr7824[address] [place], [place] [address]Dr. Swathi Reis BIPAP PRESSURE 12/6 [facility] Comment on above: Performed By: #### A BG ####[facility] Yoehfmgwqz5970[address] [place], [place] [address]Dr. Swathi Reis CPAP [facility] Comment on above: Performed By: #### A BG ####[facility] Zjirwzouio8[address] [place], [place] [address]Dr. Swathi Reis FIO2 90.00 % Normal [facility] Comment on above: Performed By: #### A BG ####[facility] Nqjgmxvpoh3435[address] [place], [place] [address]Dr. Swathi Reis HCO3 (Bld) [Moles/Vol] 25.9 mmol/L Normal 22.0-26.0 [facility] Comment on above: Performed By: #### A BG ####[facility] Uhaxtgszpy[address] [place], [place] [address]Dr. Swathi Reis LPM [facility] Comment on above: Performed By: #### A BG ####[facility] Tzzfvipfqs750[address] [place], [place] [address]Dr. Swathi Reis MINUTE VOLUME Normal [facility] Comment on above: Performed By: #### A BG ####[facility] Jfcyeqnedt1664[address] [place], [place] [address]Dr. Swathi Reis Oxygen (Bld) [Partial pressure] 95.0 mm[Hg] Normal 80.0-100.0 [facility] Comment on above: Performed By: #### A BG ####[facility] [address] [place] [address]Dr. Swathi Reis Oxygen saturation in Blood 97.7 % Normal 95.0-100.0 [facility] Comment on above: Performed By: #### A BG ####[facility] Diqqohhwmd[address] [place] [address]Dr. Swathi Reis PCO2 44.2 mmHg Normal 35.0-45.0 [facility] Comment on above: Performed By: #### A BG ####[facility] Vpirbhovni994[address] [place], [place] [address]Dr. Swathi Reis PEEP [facility] Comment on above: Performed By: #### A BG ####[facility] Umdbnaitft0814[address] [place], [place] [address]Dr. Swathi Reis pH (Bld) 7.377 [pH] Normal 7.350-7.450 [facility] Comment on above: Performed By: #### A BG ####[facility] Nkrqvoezok[address] [place], [place] [address]Dr. Swathi Reis PIP [facility] Comment on above: Performed By: #### A BG ####[facility] Yyoxhojcpz64[address] [place], [place] [address]Dr. Swathi Reis PS [facility] Comment on above: Performed By: #### A BG ####[facility] Jhghedahga1610[address] [place], [place] [address]Dr. Swathi Reis PUNCTURE SITE RR Normal [facility] Comment on above: Performed By: #### A BG ####[facility] Jdmvumatcf53[address] [place], [place] [address]Dr. Swathi Reis RATE [facility] Comment on above: Performed By: #### A BG ####[facility] Pdzpwjsgfr664[address] [place], [place] [address]Dr. Swathi Reis VENT MODE [facility] Comment on above: Performed By: #### A BG ####[facility] Xahxyxtjhf[address] [place], [place] [address]Dr. Swathi Reis [place] Normal [facility] Comment on above: Performed By: #### A BG ####[facility] Zyqgwbfsgn8[address] [place], [place] [address]Dr. Swathi Reis BNPon 08-19-2022 Natriuretic peptide B (Bld) [Mass/Vol] 2862.0 pg/mL Critically high <=1,800.0 [facility] Comment on above: Performed By: #### L IPA, BNP ####[facility] [address]qkwo[address] [place] [address]Dr. Swathi Reis CARDIAC TRINA 3-6on 2 CK [Catalytic activity/Vol] 25 U/L Critically low 26-192 [facility] Comment on above: Performed By: #### C MREP ####[facility] Cnkehaotbu1576[address] [place], [place] [address]Dr. Swathi Reis CK.MB [Mass/Vol] 0.57 ng/mL Normal <=3.60 The [facility] Comment on above: Performed By: #### C MREP ####[facility] Lfjlhljgfj4175[address] [place], [place] [address]Dr. Swathi Reis HSTROP 16.6 pg/mL Normal 4.0-51.3 [facility] Comment on above: Result Comment: CUT- OFF POINTS HAVE BEEN ESTABLISHED BASED ON THE FOURTH UNIVERSAL DEFINITIONS OF MYOCARDIALINFARCTION. THE UPPER REFERENCE LIMIT (URL) OF TROPONIN, DEFINED THE 99TH PERCENTILE OFcTnI DISTRIBUTION IN A REFERENCE POPULATION, HAS BEEN CONFIRMED THE DECISION THRESHOLDFOR MS DIAGNOSIS. Performed By: #### C MREP ####[facility] Shfzsnmvxz33[address] [place], [place] [address]Dr. Swathi Reis CK [Catalytic activity/Vol] 26 U/L Normal 26-192 [facility] Comment on above: Performed By: #### C MREP ####[facility] [address] [place] [address]Dr. Swathi Reis CK.MB [Mass/Vol] 0.59 ng/mL Normal <=3.60 The [facility] Comment on above: Performed By: #### C MREP ####[facility] [address]tdk[address] [place] [address]Dr. Swathi Reis HSTROP 16.3 pg/mL Normal 4.0-51.3 [facility] Comment on above: Result Comment: CUT- OFF POINTS HAVE BEEN ESTABLISHED BASED ON THE FOURTH UNIVERSAL DEFINITIONS OF MYOCARDIALINFARCTION. THE UPPER REFERENCE LIMIT (URL) OF TROPONIN, DEFINED THE 99TH PERCENTILE OFcTnI DISTRIBUTION IN A REFERENCE POPULATION, HAS BEEN CONFIRMED THE DECISION THRESHOLDFOR MS DIAGNOSIS. Performed By: #### C MREP ####[facility] Aart[address]fvgb[address] [place] [address]Dr. Swathi Reis CBC AUTO DIFFon 08-19-2022 BASO # 0.1 103/ul Normal 0.0-0.1 [facility] Comment on above: Performed By: #### C BC ####[facility] Yfauznkirs[address] [place], [place] [address]Dr. Inessatracy Reis Basophils/100 WBC (Bld) 0.4 % Normal 0.2-2.0 [facility] Comment on above: Performed By: #### C BC ####[facility] Mfvaliavrk[address] [place], [place] [address]Dr. Swathi Reis EO # 0.1 103/ul Normal 0.0-0.7 [facility] Comment on above: Performed By: #### C BC ####[facility] Dpgxdurfmf[address] [place], [place] [address]Dr. Swathi Reis Eosinophils/100 WBC (Bld) 0.4 % Critically low 0.9-7.0 [facility] Comment on above: Performed By: #### C BC ####[facility] Wlswtqfwjg[address] [place], [place] [address]Dr. Swathi Reis Erythrocyte distribution width (RBC) [Ratio] 14.2 % Normal 11.0-15.0 [facility] Comment on above: Performed By: #### C BC ####[facility] Esjqltlept0489[address] [place], [place] [address]Dr. Swathi Reis Hematocrit (Bld) [Volume fraction] 34.4 % Critically low 36.0-48.0 [facility] Comment on above: Performed By: #### C BC ####[facility] Rqxbbswhvq260[address] [place] [id number]. Swathi Reis Hemoglobin (Bld) [Mass/Vol] 11.2 g/dL Critically low 12.0-16.0 [facility] Comment on above: Performed By: #### C BC ####[facility] D[address]cnjdwdis6[address] [place] [phone]. Swathi Reis IG # 0.08 10e3/ul Critically high 0.00-0.03 [facility] Comment on above: Performed By: #### C BC ####[facility] [address]mxbuhiig[address] [place] [address]Dr. Swathi Chato IG % 0.4 % Normal 0.0-0.5 [facility] Comment on above: Performed By: #### C BC ####[facility] [address]vpjnqptw[address] [place] [address]Dr. Swathi Chato LYMPH # 0.8 103/ul Critically low 1.2-3.8 [facility] Comment on above: Performed By: #### C BC ####[facility] Gcfmxmppnk79[address] [place] [phone]. Swathi Chato Lymphocytes/100 WBC (Bld) 4.1 % Critically low 20.5-60.0 [facility] Comment on above: Performed By: #### C BC ####[facility] E[address]ywull[address] [place] [address]Dr. Swathi Chato MANUAL DIFF REQ NO Normal [facility] Comment on above: Performed By: #### C BC ####[facility] Iuvzbsvpla35[address] [place] [phone]. Swathi Chato MCH (RBC) [Entitic mass] 29.1 pg Normal 26.7-34.0 [facility] Comment on above: Performed By: #### C BC ####[facility] Nblsfwacmy54[address] [place] [phone]. Swathi Chato MCHC (RBC) [Mass/Vol] 32.6 g/dL Normal 29.9-35.2 [facility] Comment on above: Performed By: #### C BC ####[facility] Kizodcqhtt7[address] [place] [phone]. Swathi Reis MCV (RBC) [Entitic vol] 89.4 fL Normal 81.0-99.0 [facility] Comment on above: Performed By: #### C BC ####[facility] Ndqoanyroy6987 [place] [phone]. Swathi Reis MONO # 1.1 103/ul Critically high 0.3-0.8 The [facility] Comment on above: Performed By: #### C BC ####[facility] Nuaeuptoko6578 [place] [phone]. Swathi Reis Monocytes/100 WBC (Bld) 5.8 % Normal 1.7-12.0 [facility] Comment on above: Performed By: #### C BC ####[facility] E[address]zlpepei[address] [place], [place] [address]Dr. Swathi Reis NEUT # 16.4 103/ul Critically high 1.4-6.5 The [facility] Comment on above: Performed By: #### C BC ####[facility] Gfiwmwqybn[address] [place], [place] [address]Dr. Swathi Reis Neutrophils/100 WBC (Bld) 88.9 % Critically high 43.0-75.0 [facility] Comment on above: Performed By: #### C BC ####[facility] [address]vjpbj[address] [place], [place] [address]Dr. Swathi Reis Platelet mean volume (Bld) [Entitic vol] 10.6 fL Normal 9.5-13.5 [facility] Comment on above: Performed By: #### C BC ####[facility] Ulviingnea9[address] [place] [phone]. Swathi Chato PLT 366 103/ul Normal 150-450 [facility] Comment on above: Performed By: #### C BC ####[facility] Tmnwanrpmg7953 [place] [phone]. Swathi Reis RBC 3.85 106/ul Critically low 4.20-5.40 The [facility] Comment on above: Performed By: #### C BC ####[facility] Jsevsxdjzv7427 [place], [place] [address]Gx. Swathi Reis WBC 18.4 103/ul Critically high 4.0-11.0 The [facility] Comment on above: Performed By: #### C BC ####[facility] Rsfmrnwbyh9340 [place], [place] [address]Lv. Swathi Reis CTA CHEST WO W CONon 022 CTA CHEST WO W CON Normal The [facility] CULTURE BLOODon 08-19-2022 Microscopic examination of blood, culture Culture Observations: NO GROWTH AT 5 DAYS. Normal [facility] Comment on above: Performed By: #### B LDCX2 ####[facility] Qgndutqjwg8714 [place], [place] [address]Tj. Swathi Reis Microscopic examination of blood, culture Culture Observations: NO GROWTH AT 5 DAYS. Normal [facility] Comment on above: Performed By: #### B LDCX1 ####[facility] Smwbnujvro1727 [place], [place] [address]Ko. Swathi Reis Covid-19 PCR (CVDTBH)on 07-25 SARS-CoV-2 (COVID-19) RNA ÓSCAR+probe Ql (Unsp spec) Not detected Normal NOT DETECTED [facility] Comment on above: Result Comment: When [...] for this test is supported by the Quality Control Coordinator of Health and Human Service's declaration that [...] be used). Performed By: #### C VDTBH ####[facility] Tubjeheixt[address] [place], [place] [address]Dr. Swathi Reis Performed By: #### R SPLUS ####[facility] Rzhcetpbhd74[address] [place], [place] [address]Dr. Swathi Reis LACTATE/LACTIC ACIDon 2021 Lactate [Moles/Vol] 1.5 mmol/L Normal 0.4-1.9 [facility] Comment on above: Performed By: #### L ACT ####[facility] Zggjuyaclm01[address] [place], [place] [address]Dr. Swathi Reis LIPASEon 08-19-2022 Lipase [Catalytic activity/Vol] 130.0 U/L Normal 73.0-393.0 [facility] Comment on above: Performed By: #### L IPA, BNP ####[facility] Ewdyvzmtss[address] [place], [place] [address]Dr. Swathi Reis POINT OF CARE GLUCOSEon 07-25 Glucose [Mass/Vol] 222 mg/dL Critically high -106 [facility] Comment on above: Performed By: #### P OCGLUC ####[facility] Cqpcemkcml4084[address] [place], [place] [address]Dr. Swathi Reis Glucose [Mass/Vol] 166 mg/dL Critically high -[address] [place] [address] Comment on above: Performed By: #### P OCGLUC ####[facility] Cguymthpum5986[address] [place], [place] [address]Dr. Swathi [facility] Glucose [Mass/Vol] 213 mg/dL Critically high -106 [facility] Comment on above: Performed By: #### P OCGLUC ####[facility] Wjubysbufq9556[address] [place], [place] [address]Dr. Swathi Reis RESPIRATORY PANEL PLUSon Adenovirus Not detected Normal NOT DETECTED [facility] Comment on above: Performed By: #### R SPLUS ####[facility] Dfxxmpkudj17[address] [place], [place] [address]Dr. Swathi Reis B. Parapertusis Not detected Normal NOT DETECTED [facility] Comment on above: Performed By: #### R SPLUS ####[facility] Opumfkwqae[address] [place] [address]Dr. Yitracy Reis B. Pertussis Not detected Normal NOT DETECTED [facility] Comment on above: Performed By: #### R SPLUS ####[facility] Fpfiqynuet8626[address] [place], [place] [address]Dr. Yilan Reis Chlamydia Pneumoniae Not detected Normal NOT DETECTED [facility] Comment on above: Performed By: #### R SPLUS ####[facility] Ipmbuuqwlv5587[address] [place], [place] [address]Dr. Yilan Reis Coronavirus 229E Not detected Normal NOT DETECTED [facility] Comment on above: Performed By: #### R SPLUS ####[facility] Cxwkwbdzop3425[address] [place], [place] [address]Dr. Yilan Reis Coronavirus HKU1 Not detected Normal NOT DETECTED [facility] Comment on above: Performed By: #### R SPLUS ####[facility] Wcqxnznnce48[address] [place], [place] [address]Dr. Yilan Reis Coronavirus NL63 Not detected Normal NOT DETECTED [facility] Comment on above: Performed By: #### R SPLUS ####[facility] Mbsjhogmtu4148[address] [place], [place] [address]Dr. Yilan Reis Coronavirus OC43 Not detected Normal NOT DETECTED [facility] Comment on above: Performed By: #### R SPLUS ####[facility] Mobedevbix7[address] [place], [place] [address]Dr. Yilan Reis Influenza A H1 2009 Not detected Normal NOT DETECTED [facility] Comment on above: Performed By: #### R SPLUS ####[facility] Svilterrqq9[address] [place], [place] [address]Dr. Yilan Reis Influenza A H3 Not detected Normal NOT DETECTED [facility] Comment on above: Performed By: #### R SPLUS ####[facility] Divibqhrmc[address]180[address] [place], [place] [address]Dr. Yilan Reis Influenza B Not detected Normal NOT DETECTED [facility] Comment on above: Performed By: #### R SPLUS ####[facility] [address]sojayce[address] [place] [address]Dr. Swathi Reis Metapneumovirus Not detected Normal NOT DETECTED [facility] Comment on above: Performed By: #### R SPLUS ####[facility] Bvseexkpgr8439[address] [place], [place] [address]Dr. Swathi Reis Mycoplas. Pneumoniae Not detected Normal NOT DETECTED [facility] Comment on above: Performed By: #### R SPLUS ####[facility] Orpwdacpwr[address] [place], [place] [address]Dr. Swathi Reis Parainfluenza 1 Not detected Normal NOT DETECTED [facility] Comment on above: Performed By: #### R SPLUS ####[facility] Lofplegxsl5075[address] [place], [place] [address]Dr. Swathi Reis Parainfluenza 2 Not detected Normal NOT DETECTED [facility] Comment on above: Performed By: #### R SPLUS ####[facility] Clccftvoao360[address] [place], [place] [address]Dr. Swathi Reis Parainfluenza 3 Not detected Normal NOT DETECTED [facility] Comment on above: Performed By: #### R SPLUS ####[facility] Bjglngxdlq0846[address] [place], [place] [address]Dr. Swathi Reis Parainfluenza 4 Not detected Normal NOT DETECTED [facility] Comment on above: Performed By: #### R SPLUS ####[facility] Sjtrlqokap[address] [place], [place] [address]Dr. Swathi Reis Rhino/Enterovirus Not detected Normal NOT DETECTED [facility] Comment on above: Performed By: #### R SPLUS ####[facility] Ydrdwcpmxy[address] [place] [address]Dr. Swathi Reis RP2 Header 1 RESPIRATORY PANEL: VIRUSES Normal [facility] Comment on above: Performed By: #### R SPLUS ####[facility] Foifldvqsc[address]14[address] [place], [place] [address]Dr. Swathi Reis RP2 Header 2 RESPIRATORY PANEL: BACTERIA Normal [facility] Comment on above: Performed By: #### R SPLUS ####[facility] Sdvbttmfwx5002 [place] [address]Dr. Swathi Reis RSV Not detected Normal NOT DETECTED [facility] Comment on above: Performed By: #### R SPLUS ####[facility] Pxvoqnwyjz6196[address] [place], [place] [address]Dr. Swathi Reis XR CHEST 1 Von 08-19-2022 XR CHEST 1 V Normal [facility] BNPon 08-18-2022 Natriuretic peptide B (Bld) [Mass/Vol] 2955.0 pg/mL Critically high <=1,800.0 [facility] Comment on above: Performed By: #### B SHOE MAKER ####[facility] Jsvgvqdtrm[address]46[address] [place], [place] [address]Dr. Swathi Reis CARDIAC TRINA ADMITon 022 CK [Catalytic activity/Vol] 26 U/L Normal 26-192 [facility] Comment on above: Performed By: #### B FAY, RACQUEL ####[facility] Czwgczrlyj86[address] [place], [place] [address]Dr. Swathi Reis CK.MB [Mass/Vol] 0.79 ng/mL Normal <=3.60 The [facility] Comment on above: Performed By: #### B FAY, RACQULE ####[facility] Dmsaqlcdbf7199[address] [place], [place] [address]Dr. Swathi Chato HSTROP 16.0 pg/mL Normal 4.0-51.3 [facility] Comment on above: Result Comment: CUT- OFF POINTS HAVE BEEN ESTABLISHED BASED ON THE FOURTH UNIVERSAL DEFINITIONS OF MYOCARDIALINFARCTION. THE UPPER REFERENCE LIMIT (URL) OF TROPONIN, DEFINED THE 99TH PERCENTILE OFcTnI DISTRIBUTION IN A REFERENCE POPULATION, HAS BEEN CONFIRMED THE DECISION THRESHOLDFOR MS DIAGNOSIS. Performed By: #### B FAY, CMADM ####[facility] Fngbudkfue36[address] [place], [place] [address]Dr. Swathi Reis GUANACO 47 ng/mL Normal 9-82 [facility] Comment on above: Performed By: #### B FAY, CMADM ####[facility] Shjrvsmsdl[address] [place], [place] [address]Dr. Swathi Reis CBC AUTO DIFFon 08-18-2022 BASO # 0.1 103/ul Normal 0.0-0.1 [facility] Comment on above: Performed By: #### C BC ####[facility] Doyspbgjtn8199 [place] [address]DrOtto Reis Basophils/100 WBC (Bld) 0.4 % Normal 0.2-2.0 [facility] Comment on above: Performed By: #### C BC ####[facility] Myicivofka[address] [place], [place] [address]DrOtto Reis EO # 0.1 103/ul Normal 0.0-0.7 [facility] Comment on above: Performed By: #### C BC ####[facility] Tzvtaspqki[address] [place], [place] [address]Dr. Swathi Reis Eosinophils/100 WBC (Bld) 0.9 % Normal 0.9-7.0 [facility] Comment on above: Performed By: #### C BC ####[facility] Hwoaurwdpy[address] [place], [place] [address]DrOtto Reis Erythrocyte distribution width (RBC) [Ratio] 14.2 % Normal 11.0-15.0 [facility] Comment on above: Performed By: #### C BC ####[facility] Tuulnmbqce[address] [place], [place] [address]Dr. Swathi Reis Hematocrit (Bld) [Volume fraction] 34.1 % Critically low 36.0-48.0 [facility] Comment on above: Performed By: #### C BC ####[facility] Jshniyrlwg8[address] [place], [place] [address]Dr. Swathi Reis Hemoglobin (Bld) [Mass/Vol] 11.2 g/dL Critically low 12.0-16.0 [facility] Comment on above: Performed By: #### C BC ####[facility] Xlmtjzccnw[address] [place], [place] [address]DrOtto Reis IG # 0.06 10e3/ul Critically high 0.00-0.03 [facility] Comment on above: Performed By: #### C BC ####[facility] Eqldeuedma[address] [place], [place] [address]Dr. Swathi Reis IG % 0.4 % Normal 0.0-0.5 [facility] Comment on above: Performed By: #### C BC ####[facility] [address] [place] [address]DrOtto Reis LYMPH # 1.4 103/ul Normal 1.2-3.8 The [facility] Comment on above: Performed By: #### C BC ####[facility] Cfovjgesdw8[address] [place] [address]DrOtto Reis Lymphocytes/100 WBC (Bld) 10.1 % Critically low 20.5-60.0 The [facility] Comment on above: Performed By: #### C BC ####[facility] Zqesygpbvq04[address] [place], [place] [address]DrOtto Reis MANUAL DIFF REQ NO Normal The [facility] Comment on above: Performed By: #### C BC ####[facility] Wwgscllhai[address] [place] [address]DrOtto Reis MCH (RBC) [Entitic mass] 29.2 pg Normal 26.7-34.0 The [facility] Comment on above: Performed By: #### C BC ####[facility] Ryeqbdzbya[address] [place], [place] [address]DrOtto Reis MCHC (RBC) [Mass/Vol] 32.8 g/dL Normal 29.9-35.2 The [facility] Comment on above: Performed By: #### C BC ####[facility] Wswlmogdeo4675[address] [place], [place] [address]DrOtto Reis MCV (RBC) [Entitic vol] 89.0 fL Normal 81.0-99.0 The [facility] Comment on above: Performed By: #### C BC ####[facility] Smgvfdcvqa84[address] [place], [place] [address]DrOtto Reis MONO # 1.1 103/ul Critically high 0.3-0.8 The [facility] Comment on above: Performed By: #### C BC ####[facility] Ttfoslxonu3425[address] [place], [place] [address]DrOtto Reis Monocytes/100 WBC (Bld) 8.3 % Normal 1.7-12.0 The [facility] Comment on above: Performed By: #### C BC ####[facility] G[address]qavhgpb[address] [place] [address]Dr. Swathi Reis NEUT # 11.0 103/ul Critically high 1.4-6.5 The [facility] Comment on above: Performed By: #### C BC ####[facility] Lwsielwamf64[address] [place] [address]Dr. Swathi Reis Neutrophils/100 WBC (Bld) 79.9 % Critically high 43.0-75.0 The [facility] Comment on above: Performed By: #### C BC ####[facility] Arptxdrspt[address] [place], [place] [address]Dr. Swathi Reis Platelet mean volume (Bld) [Entitic vol] 10.7 fL Normal 9.5-13.5 The [facility] Comment on above: Performed By: #### C BC ####[facility] Tisolhaxdc[address] [place], [place] [address]Dr. Swathi Reis PLT 408 103/ul Normal 150-450 The [facility] Comment on above: Performed By: #### C BC ####[facility] Sgxmtsymor6348[address] [place], [place] [address]Dr. Swathi Reis RBC 3.83 106/ul Critically low 4.20-5.40 The [facility] Comment on above: Performed By: #### C BC ####[facility] Fiiuptfxuu[address] [place], [place] [address]Dr. Swathi Reis WBC 13.8 103/ul Critically high 4.0-11.0 The [facility] Comment on above: Performed By: #### C BC ####[facility] Skyirnyhsj2588[address] [place], [place] [address]Dr. Swathi Reis Covid-19 PCR (CVDTB)on 07-25 SARS-CoV-2 (COVID-19) RNA ÓSCAR+probe Ql (Unsp spec) Not detected Normal NOT DETECTED The [facility] Comment on above: Result Comment: When [...] for this test is supported by the Quality Control Coordinator of Health and Human Service's declaration that [...] be used). Performed By: #### C VDTBH ####[facility] Ckwxpkbovt5898[address] [place], [place] [address]Dr. Swathi Reis D-DIMERon 08-18-2022 D-DIMER 1.83 mg/L FEU Critically high <=0.59 The [facility] Comment on above: Performed By: #### D DIM ####[facility] Gbytpqgntf[address] [place], [place] [address]Dr. Swathi Reis D-DIMER COMMENTS SEE BELOW Normal The [facility] Comment on above: Result Comment: Incr eases [...] generalized hospitalization. Performed By: #### D DIM ####[facility] Izvqhheeew[address] [place], [place] [address]Dr. Swathi Reis INFLUENZA A AND B AGon 08-18 INFLUENZA A AG Negative Normal NEGATIVE SEE COMMENT The [facility] Comment on above: Performed By: #### R SV, INFLUAB ####[facility] Effjrvxbru13[address] [place], [place] [address]Dr. Swathi Reis INFLUENZA B AG Negative Normal NEGATIVE SEE COMMENT The [facility] Comment on above: Performed By: #### R SV, INFLUAB ####[facility] Tqzbfixxfq0779[address] [place], [place] [address]Dr. Swathi Reis INFLUPOSH SEE BELOW Normal The [facility] Comment on above: Result Comment: NOTE : Live attenuated influenzae vaccine viruses can cause a positive result for a rapid influenza diagnostic test if administered up to 7 days prior to rapid testing. Performed By: #### R SV, INFLUAB ####[facility] Doenqbbjbd5939[address] [place], [place] [address]Dr. Swathi Reis INFLUPOSHB SEE BELOW Normal The [facility] Comment on above: Result Comment: NOTE : Live attenuated influenzae vaccine viruses can cause a positive result for a rapid influenza diagnostic test if administered up to 7 days prior to rapid testing. Performed By: #### R SV, INFLUAB ####[facility] Lyfaoilgto2074[address] [place], [place] [address]Dr. Swathi Reis INTERNAL CONTROLS Within Normal Limits Normal Wi thin Normal Limits [facility] Comment on above: Performed By: #### R LEI, INFLUAB ####[facility] Hitiktwacm3225[address] [place], [place] [address]Dr. Swathi Reis LACTATE/LACTIC ACIDon 2021 Lactate [Moles/Vol] 1.9 mmol/L Normal 0.4-1.9 The [facility] Comment on above: Performed By: #### L ACT ####[facility] Lsefuoeszj5901[address] [place], [place] [address]Dr. Swathi Reis PROF CHEM 8 (BAS METB)on Anion gap [Moles/Vol] 13.9 mmol/L Normal [facility] Comment on above: Performed By: #### B ANTONIA APONTEDM ####[facility] Ridmcelxln6357[address] [place], [place] [address]Dr. Swathi Reis Calcium [Mass/Vol] 9.9 mg/dL Normal 8.5-10.1 [facility] Comment on above: Performed By: #### Dru APONTE CMADM ####[facility] [address]zwgckg[address] [place] [address]Dr. Swathi Reis Chloride [Moles/Vol] 102 mmol/L Normal 98-107 [facility] Comment on above: Performed By: #### Dru APONTE, RACQUEL ####[facility] Jvrokvfkmd039[address] [place], [place] [address]Dr. Swathi Reis CO2 [Moles/Vol] 29.6 mmol/L Normal 21.0-32.0 The [facility] Comment on above: Performed By: #### B FAY, CMATRINIDAD ####[facility] Keannqbbdd3147[address] [place], [place] [address]Dr. Swathi Reis Creatinine [Mass/Vol] 1.61 mg/dL Critically high 0.55-1.02 [facility] Comment on above: Performed By: #### B FAY, CMATRINIDAD ####[facility] Wywwkdwtss[address] [place], [place] [address]Dr. Swathi Reis EGFR-AF MONTENEGRIN 38 mL/min/1.73m2 Critically low >=60 [facility] Comment on above: Performed By: #### Dru APONTE, CMATRINIDAD ####[facility] Axgqgzmfah5859[address] [place], [place] [address]Dr. Swathi Chato EGFR-NON AF MONTENEGRIN 31 mL/min/1.73m2 Critically low >=60 [facility] Comment on above: Performed By: #### Dru APONTE, CMADM ####[facility] Iascilsfnb715[address] [place], [place] [address]Dr. Swathi Reis Glucose [Mass/Vol] 192 mg/dL Critically high 74-106 [facility] Comment on above: Performed By: #### Dru APONTE, CMADM ####[facility] Xfxazcjrxv8248[address] [place], [place] [address]Dr. Swathi Reis Potassium [Moles/Vol] 4.5 mmol/L Normal 3.5-5.1 [facility] Comment on above: Performed By: #### Dru APONTE, CMADM ####[facility] Yajonjmxdx4834[address] [place], [place] [address]Dr. Swathi Reis Sodium [Moles/Vol] 141 mmol/L Normal 136-145 [facility] Comment on above: Performed By: #### B MP, CMADM ####[facility] Fjrwwvohlx[address] [place], [place] [address]Dr. Inessatracy Chato Urea nitrogen [Mass/Vol] 27.0 mg/dL Critically high 7.0-18.0 The [facility] Comment on above: Performed By: #### B MP, CMADM ####[facility] Oodaxcbgnp7665[address] [place], [place] [address]Dr. Swathi Reis Urea nitrogen/Creatinine [Mass ratio] 16.8 mg/mg Normal The [facility] Comment on above: Performed By: #### B MP, CMADM ####[facility] Kaaqowbdkc919[address] [place], [place] [address]Dr. Swathi Reis RSVon 08-18-2022 RSV AG Negative Normal NEGATIVE The [facility] Comment on above: Performed By: #### R SV, INFLUAB ####[facility] Xhfysrumpx3150[address] [place], [place] [address]Dr. Swathi Reis BNPon 07-12-2022 Natriuretic peptide B (Bld) [Mass/Vol] 5375.0 pg/mL Critically high <=1,800.0 The [facility] Comment on above: Performed By: #### B SHOE MAKER, CMP ####[facility] Vsujtbbqta2666[address] [place], [place] [address]Dr. Swathi Reis CBC AUTO DIFFon 07-12-2022 BASO # 0.1 103/ul Normal 0.0-0.1 The [facility] Comment on above: Performed By: #### C BC ####[facility] Flrnhzjxud8728[address] [place], [place] [address]Dr. Swathi Reis Basophils/100 WBC (Bld) 0.7 % Normal 0.2-2.0 The [facility] Comment on above: Performed By: #### C BC ####[facility] Zjeanaiale309[address] [place], [place] [address]DrOtto Reis EO # 0.3 103/ul Normal 0.0-0.7 The [facility] Comment on above: Performed By: #### C BC ####[facility] Mqlsqawthz1608[address] [place], [place] [address]Dr. Swathi Reis Eosinophils/100 WBC (Bld) 3.2 % Normal 0.9-7.0 The [facility] Comment on above: Performed By: #### C BC ####[facility] [address]xsssjko[address] [place] [address]Dr. Swathi Reis Erythrocyte distribution width (RBC) [Ratio] 13.3 % Normal 11.0-15.0 The [facility] Comment on above: Performed By: #### C BC ####[facility] Wcpxzefwmh4413[address] [place], [place] [address]Dr. Swathi Reis Hematocrit (Bld) [Volume fraction] 29.9 % Critically low 36.0-48.0 The [facility] Comment on above: Performed By: #### C BC ####[facility] Sywruiwmji25[address] [place], [place] [address]Dr. Swathi Reis Hemoglobin (Bld) [Mass/Vol] 9.7 g/dL Critically low 12.0-16.0 The [facility] Comment on above: Performed By: #### C BC ####[facility] Zkucyqoqty726[address] [place], [place] [address]Dr. Swathi Reis IG # 0.05 10e3/ul Critically high 0.00-0.03 [facility] Comment on above: Performed By: #### C BC ####[facility] Czmnlruayb4788[address] [place], [place] [address]Dr. Swathi Reis IG % 0.5 % Normal 0.0-0.5 The [facility] Comment on above: Performed By: #### C BC ####[facility] Dcuopfpajt9324[address] [place], [place] [address]Dr. Swathi Reis LYMPH # 1.5 103/ul Normal 1.2-3.8 The [facility] Comment on above: Performed By: #### C BC ####[facility] Zhwkkruegl[address] [place], [place] [address]Dr. Swathi Reis Lymphocytes/100 WBC (Bld) 14.0 % Critically low 20.5-60.0 The [facility] Comment on above: Performed By: #### C BC ####[facility] U[address]jasvcjz[address] [place] [address]Dr. Swathi Chato MANUAL DIFF REQ NO Normal The [facility] Comment on above: Performed By: #### C BC ####[facility] Diaohjwdoj7516[address] [place], [place] [address]Dr. Swathi Reis MCH (RBC) [Entitic mass] 30.1 pg Normal 26.7-34.0 The [facility] Comment on above: Performed By: #### C BC ####[facility] Vsxpnvlgkw5890[address] [place], [place] [address]Dr. Swathi Chato MCHC (RBC) [Mass/Vol] 32.4 g/dL Normal 29.9-35.2 The [facility] Comment on above: Performed By: #### C BC ####[facility] Fcpslfhdit5875[address] [place], [place] [address]Dr. Inessatracy Reis MCV (RBC) [Entitic vol] 92.9 fL Normal 81.0-99.0 The [facility] Comment on above: Performed By: #### C BC ####[facility] Fxjfwbkpdd0627[address] [place], [place] [address]Dr. Inessatracy Reis MONO # 1.2 103/ul Critically high 0.3-0.8 The [facility] Comment on above: Performed By: #### C BC ####[facility] Dnyzxqtkbj674[address] [place], [place] [address]Dr. Swathi Reis Monocytes/100 WBC (Bld) 11.1 % Normal 1.7-12.0 The [facility] Comment on above: Performed By: #### C BC ####[facility] Cihrxzbawz[address] [place], [place] [address]Dr. Swathi Reis NEUT # 7.5 103/ul Critically high 1.4-6.5 The [facility] Comment on above: Performed By: #### C BC ####[facility] Dyncjedzpt6194[address] [place], [place] [address]Dr. Swathi Reis Neutrophils/100 WBC (Bld) 70.5 % Normal 43.0-75.0 The [facility] Comment on above: Performed By: #### C BC ####[facility] Ohzbmrhpzx69[address] [place] [address]Dr. Swathi Reis Platelet mean volume (Bld) [Entitic vol] 10.7 fL Normal 9.5-13.5 [facility] Comment on above: Performed By: #### C BC ####[facility] Ccenpqgmvl032[address] [place] [id number]. Inessatracy Reis PLT 291 103/ul Normal 150-450 [facility] Comment on above: Performed By: #### C BC ####[facility] W[address]opaksxq36[address] [place] [address]Dr. Swathi Reis RBC 3.22 106/ul Critically low 4.20-5.40 [facility] Comment on above: Performed By: #### C BC ####[facility] Mieomtneal4[address] [place] [address]Dr. Swathi Reis WBC 10.6 103/ul Normal 4.0-11.0 [facility] Comment on above: Performed By: #### C BC ####[facility] Lplmabtvxs[address] [place], [place] [address]Dr. Swathi Reis POINT OF CARE GLUCOSEon 06-24 Glucose [Mass/Vol] 191 mg/dL Critically high 74-106 [facility] Comment on above: Performed By: #### P OCGLUC ####[facility] Pzldydytiu4[address] [place] [address]Dr. Swathi Reis PROF 14(COMP METB)on 022 Albumin [Mass/Vol] 2.4 g/dL Critically low 3.4-5.0 [facility] Comment on above: Performed By: #### B SHOE MAKER, CMP ####[facility] Dsivjrzmgt23[address] [place] [address]Dr. Swathi Reis Albumin/Globulin [Mass ratio] 0.6 {ratio} Normal [facility] Comment on above: Performed By: #### B SHOE MAKER, CMP ####[facility] Ffdoovfhfa4676[address] [place], [place] [address]Dr. Swathi Reis ALP [Catalytic activity/Vol] 73 U/L Normal 46-116 [facility] Comment on above: Performed By: #### B SHOE MAKER, CMP ####[facility] Iiedhvkmlh[address] [place], [place] [address]Dr. Swathi Reis ALT [Catalytic activity/Vol] 11 U/L Critically low 14-59 [facility] Comment on above: Performed By: #### B SHOE MAKER, CMP ####[facility] Qlbebgeeas0146[address] [place], [place] [address]Dr. Swathi Reis Anion gap [Moles/Vol] 7.7 mmol/L Normal [facility] Comment on above: Performed By: #### B SHOE MAKER, CMP ####[facility] Eancceattx810[address] [place], [place] [address]Dr. Swathi Reis AST [Catalytic activity/Vol] 15 U/L Normal 15-37 [facility] Comment on above: Performed By: #### B SHOE MAKER, CMP ####[facility] Beawrypuym2099[address] [place], [place] [address]Dr. Swathi Reis Bilirubin [Mass/Vol] 0.3 mg/dL Normal 0.2-1.0 [facility] Comment on above: Performed By: #### B SHOE MAKER, CMP ####[facility] Skkfsnzjli5978[address] [place], [place] [address]Dr. Swathi Chato Calcium [Mass/Vol] 9.3 mg/dL Normal 8.5-10.1 [facility] Comment on above: Performed By: #### B SHOE MAKER, CMP ####[facility] Kqchyxmwou7998[address] [place], [place] [address]Dr. Inessatracy Chato Chloride [Moles/Vol] 104 mmol/L Normal 98-107 [facility] Comment on above: Performed By: #### B SHOE MAKER, CMP ####[facility] Vdjgbfhgjt5174[address] [place], [place] [address]Dr. Inessatracy Reis CO2 [Moles/Vol] 30.2 mmol/L Normal 21.0-32.0 The [facility] Comment on above: Performed By: #### B SHOE MAKER, CMP ####[facility] Cekgysasgy2048[address] [place], [place] [address]Dr. Inessatracy Chato Creatinine [Mass/Vol] 1.69 mg/dL Critically high 0.55-1.02 [facility] Comment on above: Performed By: #### B SHOE MAKER, CMP ####[facility] Zrkhoviyim[address] [place] [address]Dr. Swathi Reis EGFR-AF MONTENEGRIN 36 mL/min/1.73m2 Critically low >=60 [facility] Comment on above: Performed By: #### B SHOE MAKER, CMP ####[facility] Ovvqpixqzc0748[address] [place], [place] [address]Dr. Swathi Reis EGFR-NON AF MONTENEGRIN 29 mL/min/1.73m2 Critically low >=60 [facility] Comment on above: Performed By: #### B SHOE MAKER, CMP ####[facility] Udfvyomafe2019[address] [place], [place] [address]Dr. Inessatracy Chato Globulin (S) [Mass/Vol] 4.0 g/dL Normal [facility] Comment on above: Performed By: #### B SHOE MAKER, CMP ####[facility] Pmqhdewcfl1312[address] [place], [place] [address]Dr. Swathi Reis Glucose [Mass/Vol] 110 mg/dL Critically high 74-106 [facility] Comment on above: Performed By: #### B SHOE MAKER, CMP ####[facility] Dcantaxyit059[address] [place], [place] [address]Dr. Inessatracy Chato Potassium [Moles/Vol] 3.9 mmol/L Normal 3.5-5.1 [facility] Comment on above: Performed By: #### B SHOE MAKER, CMP ####[facility] Cvnmkzzsqx500[address] [place], [place] [address]Dr. Swathi Chato Protein [Mass/Vol] 6.4 g/dL Normal 6.4-8.2 The [facility] Comment on above: Performed By: #### B SHOE MAKER, CMP ####[facility] Jjfouqibxs1220[address] [place], [place] [address]Dr. Inessatracy Chato Sodium [Moles/Vol] 138 mmol/L Normal 136-145 [facility] Comment on above: Performed By: #### B SHOE MAKER, CMP ####[facility] Kekewhsjbn23[address] [place], [place] [address]Dr. Swathi Reis Urea nitrogen [Mass/Vol] 21.0 mg/dL Critically high 7.0-18.0 The [facility] Comment on above: Performed By: #### B SHOE MAKER, CMP ####[facility] Zrbvfjntaf[address] [place], [place] [address]Dr. Swathi Reis Urea nitrogen/Creatinine [Mass ratio] 12.4 mg/mg Normal [facility] Comment on above: Performed By: #### B SHOE MAKER, CMP ####[facility] Pydfjiwgnc915[address] [place], [place] [address]Dr. Swathi Reis BNPon 07-11-2022 Natriuretic peptide B (Bld) [Mass/Vol] 2516.0 pg/mL Critically high <=1,800.0 The [facility] Comment on above: Performed By: #### B SHOE MAKER, CMP ####[facility] Srkzjnagso0955[address] [place], [place] [address]Dr. Swathi Reis C. DIFF PCRon 07-11-2022 C. DIFFICILE PCR Positive Critically abnormal NEGATIVE The [facility] Comment on above: Performed By: #### C DIFPOC ####[facility] Yagxerplai8420[address] [place], [place] [address]Dr. Swathi Reis CBC AUTO DIFFon 07-11-2022 BASO # 0.0 103/ul Normal 0.0-0.1 [facility] Comment on above: Performed By: #### C BC ####[facility] Hpjypdmqrj69[address] [place], [place] [address]Dr. Inessatracy Reis Basophils/100 WBC (Bld) 0.4 % Normal 0.2-2.0 [facility] Comment on above: Performed By: #### C BC ####[facility] Kbcydhkiui7238[address] [place], [place] [address]Dr. Swathi Chato EO # 0.2 103/ul Normal 0.0-0.7 [facility] Comment on above: Performed By: #### C BC ####[facility] Mmluuseguv[address]49[address] [place], [place] [address]Dr. Swathi Chato Eosinophils/100 WBC (Bld) 2.2 % Normal 0.9-7.0 [facility] Comment on above: Performed By: #### C BC ####[facility] Hxlyapurdd63[address] [place] [address]Dr. Swathi Reis Erythrocyte distribution width (RBC) [Ratio] 13.4 % Normal 11.0-15.0 [facility] Comment on above: Performed By: #### C BC ####[facility] Mfixczltgd7847[address] [place], [place] [address]Dr. Swathi Reis Hematocrit (Bld) [Volume fraction] 27.0 % Critically low 36.0-48.0 [facility] Comment on above: Performed By: #### C BC ####[facility] Zckrrxpdau8120[address] [place], [place] [address]Dr. Swathi Reis Hemoglobin (Bld) [Mass/Vol] 8.5 g/dL Critically low 12.0-16.0 [facility] Comment on above: Performed By: #### C BC ####[facility] Kwirtfdeal2146[address] [place], [place] [address]Dr. Swathi Reis IG # 0.07 10e3/ul Critically high 0.00-0.03 [facility] Comment on above: Performed By: #### C BC ####[facility] Vsdjeckhtw0677[address] [place], [place] [address]Dr. Swathi Reis IG % 0.6 % Critically high 0.0-0.5 [facility] Comment on above: Performed By: #### C BC ####[facility] Lpiogfmsza1625[address] [place], [place] [address]Dr. Swathi Reis LYMPH # 1.2 103/ul Normal 1.2-3.8 [facility] Comment on above: Performed By: #### C BC ####[facility] Xwfhanxsoh7904[address] [place], [place] [address]Dr. Swathi Reis Lymphocytes/100 WBC (Bld) 10.5 % Critically low 20.5-60.0 [facility] Comment on above: Performed By: #### C BC ####[facility] Lmlilsgwhq2850[address] [place], [place] [address]Dr. Inessatracy Reis MANUAL DIFF REQ NO Normal [facility] Comment on above: Performed By: #### C BC ####[facility] Msjzzdpbnw6793 [place] [id number]. Swathi Chato MCH (RBC) [Entitic mass] 29.6 pg Normal 26.7-34.0 [facility] Comment on above: Performed By: #### C BC ####[facility] Cyatrtrqto05[address] [place] [id number]. Swathi Chato MCHC (RBC) [Mass/Vol] 31.5 g/dL Normal 29.9-35.2 [facility] Comment on above: Performed By: #### C BC ####[facility] Nnzwfqezmb24[address] [place] [address]Dr. Inessatracy Reis MCV (RBC) [Entitic vol] 94.1 fL Normal 81.0-99.0 [facility] Comment on above: Performed By: #### C BC ####[facility] Jikdbuewqh2[address] [place], [place] [address]Dr. Swathi Reis MONO # 1.1 103/ul Critically high 0.3-0.8 [facility] Comment on above: Performed By: #### C BC ####[facility] Dnsmsumhvy9[address] [place], [place] [address]Dr. Swathi Reis Monocytes/100 WBC (Bld) 9.9 % Normal 1.7-12.0 [facility] Comment on above: Performed By: #### C BC ####[facility] Ouiuljlfjr[address] [place], [place] [address]Dr. Swathi Reis NEUT # 8.4 103/ul Critically high 1.4-6.5 [facility] Comment on above: Performed By: #### C BC ####[facility] [address] [place], [place] [id number]. Swathi Reis Neutrophils/100 WBC (Bld) 76.4 % Critically high 43.0-75.0 [facility] Comment on above: Performed By: #### C BC ####[facility] [address] [place], [place] [id number]. Swathi Reis Platelet mean volume (Bld) [Entitic vol] 10.6 fL Normal 9.5-13.5 [facility] Comment on above: Performed By: #### C BC ####[facility] [address] [place] [address]Dr. Inessatracy Reis PLT 248 103/ul Normal 150-450 [facility] Comment on above: Performed By: #### C BC ####[facility] Twkzghpeuz[address] [place] [id number]. Inessatracy Reis RBC 2.87 106/ul Critically low 4.20-5.40 The [facility] Comment on above: Performed By: #### C BC ####[facility] Vkxykfdhvt87[address] [place] [id number]. Swathi Reis WBC 11.0 103/ul Normal 4.0-11.0 [facility] Comment on above: Performed By: #### C BC ####[facility] Sdqvgquejl[address] [place], [place] [address]Dr. Swathi Reis GI PANEL (PCR)on 07-11-2022 Adenovirus F 40/41 Not detected Normal NOT DETECTED [facility] Comment on above: Performed By: #### G IPANEL ####[facility] Egngrymlco064[address] [place], [place] [address]Dr. Swathi Reis Astrovirus Not detected Normal NOT DETECTED [facility] Comment on above: Performed By: #### G IPANEL ####[facility] Fgxlaymcoy[address] [place], [place] [address]Dr. Swathi Reis C. Diff toxin A/B Detected Critically abnormal NOT DETECTED The [facility] Comment on above: Performed By: #### G IPANEL ####[facility] Jqsiqglqoo[address] [place], [place] [address]Dr. Swathi Reis Campylobacter Not detected Normal NOT DETECTED [facility] Comment on above: Performed By: #### G IPANEL ####[facility] Lnghouvicp5580[address] [place], [place] [address]Dr. Swathi Reis Cryptosporidium Not detected Normal NOT DETECTED [facility] Comment on above: Performed By: #### G IPANEL ####[facility] Nrcjyruqmu60[address] [place], [place] [address]Dr. Swathi Reis Cyclos. Cayetanensis Not detected Normal NOT DETECTED [facility] Comment on above: Performed By: #### G IPANEL ####[facility] Sgfyjqsqmc264[address] [place], [place] [address]Dr. tracy Reis E. Coli O157 Not Applicable Normal Not Applicable [facility] Comment on above: Performed By: #### G IPANEL ####[facility] Ucorvnbfsr2968[address] [place], [place] [address]Dr. [facility] E. histolytica Not detected Normal NOT DETECTED [facility] Comment on above: Performed By: #### G IPANEL ####[facility] Nbloznbruo9707[address] [place], [place] [address]Dr. [facility] EAEC Not detected Normal NOT DETECTED The [facility] Comment on above: Performed By: #### G IPANEL ####[facility] Hureqjcpjf46[address] [place], [place] [address]Dr. [facility] EIEC Not detected Normal NOT DETECTED The [facility] Comment on above: Performed By: #### G IPANEL ####[facility] Vxxjfhknbd6336[address] [place], [place] [address]Dr. [facility] EPEC Not detected Normal NOT DETECTED The [facility] Comment on above: Performed By: #### G IPANEL ####[facility] Ydqoffswuj668[address] [place], [place] [address]Dr. tracy Reis ETEC Not detected Normal NOT DETECTED [facility] Comment on above: Performed By: #### G IPANEL ####[facility] Wephxgnhqq20[address] [place], [place] [address]Dr. tracy Reis G. Lamblia Not detected Normal NOT DETECTED [facility] Comment on above: Performed By: #### G IPANEL ####[facility] Pfsuhlmwac8850[address] [place], [place] [address]Dr. Inessatracy Reis GIPANEL CONTROLS PASSED Normal The [facility] Comment on above: Performed By: #### G IPANEL ####[facility] Zmcagvzdoy74[address] [place], [place] [address]Dr. Swathi Reis GIPNL RICHELLE HEADER GI PANEL BACTERIA Normal T [facility] Comment on above: Performed By: #### G IPANEL ####[facility] Wgylkufsjw52[address] [place], [place] [address]Dr. Swathi Chato MCKEONHD ECOLI GI PANEL DIARRHEAGEN IC E.COLI / SHIGELLA Normal The [facility] Comment on above: Performed By: #### G IPANEL ####[facility] Wqqwzizrpi[address] [place], [place] [address]Dr. Yitracy Reis GIPNLHD INFO SEE BELOW Normal [facility] Comment on above: Result Comment: EAEC - Enteroaggregative E. Coli EPEC- Enteropathogenic E. Coli ETEC- Enterotoxigenic E. Coli lt/st STEC- Shigella-like toxin-producing E. Coli stx1/stx2 EIEC- Shigella/Enteroinvasive E. Coli Performed By: #### G IPANEL ####[facility] Mizjafshxv4324[address] [place], [place] [address]Dr. Yitracy Reis GIPNLHD PARASITES GI PANEL PARASITES Normal [facility] Comment on above: Performed By: #### G IPANEL ####[facility] Qgzyjktoka5[address] [place], [place] [address]Dr. Swathi Chato GIPNLHD VIRUS GI PANEL VIRUSES Normal The [facility] Comment on above: Performed By: #### G IPANEL ####[facility] Rvyedtnabz501[address] [place], [place] [address]Dr. Swathi Reis Norovirus GI/GII Not detected Normal NOT DETECTED The [facility] Comment on above: Performed By: #### G IPANEL ####[facility] Meobykfgng[address] [place], [place] [address]Dr. Swathi Reis P. Shigelloides Not detected Normal NOT DETECTED The [facility] Comment on above: Performed By: #### G IPANEL ####[facility] Fijdrpbqim3088[address] [place], [place] [address]Dr. Inessatracy Reis Rotavirus A Not detected Normal NOT DETECTED The [facility] Comment on above: Performed By: #### G IPANEL ####[facility] Cqhhoyahcy4484[address] [place], [place] [address]Dr. Swathi Reis Salmonella Not detected Normal NOT DETECTED The [facility] Comment on above: Performed By: #### G IPANEL ####[facility] Qyptqjccec[address] [place] [address]Dr. Swathi Reis Sapovirus Not detected Normal NOT DETECTED The [facility] Comment on above: Performed By: #### G IPANEL ####[facility] K[address]xbgcjhi[address] [place] [address]Dr. Swathi Reis STEC Detected Critically abnormal NOT DETECTED The [facility] Comment on above: Performed By: #### G IPANEL ####[facility] Zldcgpiqca8511[address] [place], [place] [address]Dr. Swathi Reis Vibrio Not detected Normal NOT DETECTED The [facility] Comment on above: Performed By: #### G IPANEL ####[facility] Rskanawrgh0650[address] [place], [place] [address]Dr. Swathi Reis Vibrio Cholera Not detected Normal NOT DETECTED The [facility] Comment on above: Performed By: #### G IPANEL ####[facility] Dwsgaipjhy9755[address] [place], [place] [address]Dr. Swathi Reis Y. Enterocolitica Not detected Normal NOT DETECTED The [facility] Comment on above: Performed By: #### G IPANEL ####[facility] Mmomcydpin724[address] [place], [place] [address]Dr. Swathi Reis POINT OF CARE GLUCOSEon 06-23 Glucose [Mass/Vol] 120 mg/dL Critically high 74-106 [facility] Comment on above: Performed By: #### P OCGLUC ####[facility] Mvmgbaczww0538[address] [place], [place] [address]Dr. Swathi Reis Glucose [Mass/Vol] 193 mg/dL Critically high 74-106 [facility] Comment on above: Performed By: #### P OCGLUC ####[facility] Ndgqanbudy4407[address] [place], [place] [address]Dr. Swathi Reis PROF 14(COMP METB)on 07-11- 022 Albumin [Mass/Vol] 2.4 g/dL Critically low 3.4-5.0 Th [facility] Comment on above: Performed By: #### B SHOE MAKER, CMP ####[facility] Hejllfqwir996[address] [place], [place] [address]Dr. Swathi Reis Albumin/Globulin [Mass ratio] 0.7 {ratio} Normal [facility] Comment on above: Performed By: #### B SHOE MAKER, CMP ####[facility] T[address]kvt[address] [place] [address]Dr. Swathi Chato ALP [Catalytic activity/Vol] 70 U/L Normal 46-116 [facility] Comment on above: Performed By: #### B SHOE MAKER, CMP ####[facility] Wluxaluwax7[address] [place] [address]Dr. Swathi Reis ALT [Catalytic activity/Vol] 12 U/L Critically low 14-59 [facility] Comment on above: Performed By: #### B SHOE MAKER, CMP ####[facility] Hijpighaxq936[address] [place], [place] [address]Dr. Swathi Reis Anion gap [Moles/Vol] 8.7 mmol/L Normal [facility] Comment on above: Performed By: #### B SHOE MAKER, CMP ####[facility] Sbzxzomlbm0986[address] [place], [place] [address]Dr. Swathi Reis AST [Catalytic activity/Vol] 11 U/L Critically low 15-37 [facility] Comment on above: Performed By: #### B SHOE MAKER, CMP ####[facility] Sfuozvsrqd0698[address] [place], [place] [address]Dr. Swathi Reis Bilirubin [Mass/Vol] 0.3 mg/dL Normal 0.2-1.0 [facility] Comment on above: Performed By: #### B SHOE MAKER, CMP ####[facility] X[address]pgjufm[address] [place] [address]Dr. Swathi Reis Calcium [Mass/Vol] 9.1 mg/dL Normal 8.5-10.1 [facility] Comment on above: Performed By: #### B SHOE MAKER, CMP ####[facility] Hx[address]cmqxfru[address] [place] [address]Dr. Swathi Reis Chloride [Moles/Vol] 107 mmol/L Normal 98-107 [facility] Comment on above: Performed By: #### B SHOE MAKER, CMP ####[facility] Exoiywldcu136[address] [place], [place] [address]Dr. Swathi Reis CO2 [Moles/Vol] 27.6 mmol/L Normal 21.0-32.0 [facility] Comment on above: Performed By: #### B SHOE MAKER, CMP ####[facility] Llqmnmibxz7246 [place] [address]Dr. Swathi Reis Creatinine [Mass/Vol] 1.72 mg/dL Critically high 0.55-1.02 [facility] Comment on above: Performed By: #### B SHOE MAKER, CMP ####[facility] Nwyqmrqnur3579[address] [place], [place] [address]Dr. Swathi Reis EGFR-AF MONTENEGRIN 35 mL/min/1.73m2 Critically low >=60 [facility] Comment on above: Performed By: #### B SHOE MAKER, CMP ####[facility] Ezgosjjhnn6186[address] [place], [place] [address]Dr. Swathi Reis EGFR-NON AF MONTENEGRIN 29 mL/min/1.73m2 Critically low >=60 [facility] Comment on above: Performed By: #### B SHOE MAKER, CMP ####[facility] Jlbephggbh2934[address] [place], [place] [address]Dr. Inessatracy Reis Globulin (S) [Mass/Vol] 3.6 g/dL Normal [facility] Comment on above: Performed By: #### B SHOE MAKER, CMP ####[facility] Lrbmwicrrt364[address] [place], [place] [address]Dr. Swathi Reis Glucose [Mass/Vol] 119 mg/dL Critically high 74-106 [facility] Comment on above: Performed By: #### B SHOE MAKER, CMP ####[facility] Vbqamdbsmh7604[address] [place], [place] [address]Dr. Swathi Reis Potassium [Moles/Vol] 4.3 mmol/L Normal 3.5-5.1 [facility] Comment on above: Performed By: #### B SHOE MAKER, CMP ####[facility] Kfqbkaizdi7317[address] [place], [place] [address]Dr. Inessatracy Chato Protein [Mass/Vol] 6.0 g/dL Critically low 6.4-8.2 Th [facility] Comment on above: Performed By: #### B SHOE MAKER, CMP ####[facility] Mumqcefwus869[address] [place], [place] [address]Dr. Inessatracy Reis Sodium [Moles/Vol] 139 mmol/L Normal 136-145 The [facility] Comment on above: Performed By: #### B SHOE MAKER, CMP ####[facility] Ydedrenhed1248[address] [place], [place] [address]Dr. Swathi Reis Urea nitrogen [Mass/Vol] 23.0 mg/dL Critically high 7.0-18.0 [facility] Comment on above: Performed By: #### B SHOE MAKER, CMP ####[facility] Oosghvtneb[address] [place], [place] [address]Dr. Swathi Reis Urea nitrogen/Creatinine [Mass ratio] 13.4 mg/mg Normal [facility] Comment on above: Performed By: #### B SHOE MAKER, CMP ####[facility] Smdfqkmhon7316[address] [place], [place] [address]Dr. Inessatracy Chato BNPon 07-10-2022 Natriuretic peptide B (Bld) [Mass/Vol] 2243.0 pg/mL Critically high <=1,800.0 [facility] Comment on above: Performed By: #### B SHOE MAKER, CMP ####[facility] Dipwbiqroe738[address] [place], [place] [address]Dr. Swathi Reis CBC AUTO DIFFon 07-10-2022 BASO # 0.1 103/ul Normal 0.0-0.1 [facility] Comment on above: Performed By: #### C BC ####[facility] Ylryusmxpq6530[address] [place], [place] [address]Dr. Swathi Reis Basophils/100 WBC (Bld) 0.7 % Normal 0.2-2.0 [facility] Comment on above: Performed By: #### C BC ####[facility] Kdmdqsqpgb6679[address] [place], [place] [address]Dr. Swathi Reis EO # 0.2 103/ul Normal 0.0-0.7 [facility] Comment on above: Performed By: #### C BC ####[facility] Iycirbflzz5965[address] [place], [place] [address]Dr. Swathi Reis Eosinophils/100 WBC (Bld) 2.1 % Normal 0.9-7.0 [facility] Comment on above: Performed By: #### C BC ####[facility] Ctulcuyyuz1786[address] [place], [place] [address]Dr. Swathi Reis Erythrocyte distribution width (RBC) [Ratio] 13.5 % Normal 11.0-15.0 [facility] Comment on above: Performed By: #### C BC ####[facility] Zxyhvsdcij6397[address] [place], [place] [address]Dr. Swathi Reis Hematocrit (Bld) [Volume fraction] 36.6 % Normal 36.0-48.0 [facility] Comment on above: Performed By: #### C BC ####[facility] Vlvncxsbem5867[address] [place], [place] [address]Dr. Swathi Reis Hemoglobin (Bld) [Mass/Vol] 11.3 g/dL Critically low 12.0-16.0 [facility] Comment on above: Performed By: #### C BC ####[facility] Xklidwgdmt1910[address] [place], [place] [address]Dr. Swathi Reis IG # 0.03 10e3/ul Normal 0.00-0.03 [facility] Comment on above: Performed By: #### C BC ####[facility] Tegymmafhg4576[address] [place], [place] [address]Dr. Swathi Reis IG % 0.4 % Normal 0.0-0.5 [facility] Comment on above: Performed By: #### C BC ####[facility] Oteoxglqlq160[address] [place], [place] [address]Dr. Swathi Reis LYMPH # 0.8 103/ul Critically low 1.2-3.8 The [facility] Comment on above: Performed By: #### C BC ####[facility] Jogrngnvyt1859[address] [place], [place] [address]Dr. Swathi Reis Lymphocytes/100 WBC (Bld) 10.3 % Critically low 20.5-60.0 [facility] Comment on above: Performed By: #### C BC ####[facility] Mtbopejkfp92[address] [place], [place] [address]Dr. Swathi Reis MANUAL DIFF REQ NO Normal The [facility] Comment on above: Performed By: #### C BC ####[facility] Solablajbc46[address] [place] [address]Dr. Swathi Reis MCH (RBC) [Entitic mass] 29.1 pg Normal 26.7-34.0 [facility] Comment on above: Performed By: #### C BC ####[facility] K[address]nslkcrx[address] [place] [address]Dr. Swathi Reis MCHC (RBC) [Mass/Vol] 30.9 g/dL Normal 29.9-35.2 [facility] Comment on above: Performed By: #### C BC ####[facility] Oaoapejuth4389[address] [place], [place] [address]Dr. Swathi Reis MCV (RBC) [Entitic vol] 94.3 fL Normal 81.0-99.0 [facility] Comment on above: Performed By: #### C BC ####[facility] Gvxdzjkdei2845[address] [place], [place] [address]Dr. Swathi Reis MONO # 0.7 103/ul Normal 0.3-0.8 [facility] Comment on above: Performed By: #### C BC ####[facility] Gsibzwhfnf3858[address] [place], [place] [address]Dr. Swathi Reis Monocytes/100 WBC (Bld) 10.2 % Normal 1.7-12.0 [facility] Comment on above: Performed By: #### C BC ####[facility] Mijrhnbvff4[address] [place], [place] [address]DrOtto Reis NEUT # 5.5 103/ul Normal 1.4-6.5 [facility] Comment on above: Performed By: #### C BC ####[facility] Winwswenlj5311[address] [place], [place] [address]DrOtto Reis Neutrophils/100 WBC (Bld) 76.3 % Critically high 43.0-75.0 [facility] Comment on above: Performed By: #### C BC ####[facility] Eausplkixk16[address] [place], [place] [address]DrOtto Reis Platelet mean volume (Bld) [Entitic vol] 10.6 fL Normal 9.5-13.5 [facility] Comment on above: Performed By: #### C BC ####[facility] Fiuqlywuuz[address] [place] [address]Dr. Swathi Reis PLT 212 103/ul Normal 150-450 [facility] Comment on above: Performed By: #### C BC ####[facility] Cpuptnztsr[address] [place] [address]Dr. Swathi Reis RBC 3.88 106/ul Critically low 4.20-5.40 [facility] Comment on above: Performed By: #### C BC ####[facility] Cpzwoxmeux0[address] [place] [address]Dr. Swathi Reis WBC 7.3 103/ul Normal 4.0-11.0 [facility] Comment on above: Performed By: #### C BC ####[facility] Ybtzawddlj5[address] [place] [address]Dr. Swathi Reis POINT OF CARE GLUCOSEon 06-23 Glucose [Mass/Vol] 171 mg/dL Critically high 74-106 [facility] Comment on above: Performed By: #### P OCGLUC ####[facility] Eaawruqndv[address] [place] [address]Dr. Swathi Reis Glucose [Mass/Vol] 162 mg/dL Critically high 74-106 [facility] Comment on above: Performed By: #### P OCGLUC ####[facility] Mukaffnajx2[address] [place] [address]Dr. Swathi Reis Glucose [Mass/Vol] 176 mg/dL Critically high 74-106 [facility] Comment on above: Performed By: #### P OCGLUC ####[facility] Wgsuckwgkd7491 [place] [address]Dr. Swathi Reis Glucose [Mass/Vol] 140 mg/dL Critically high -106 [facility] Comment on above: Performed By: #### P OCGLUC ####[facility] Vhotixhvxe[address]24[address] [place], [place] [address]Dr. Swathi Reis Glucose [Mass/Vol] 37 mg/dL Critically low 74-106 Th [facility] Comment on above: Result Comment: Will Repeat Test Performed By: #### P OCGLUC ####[facility] Aourxymkno37[address] [place] [address]Dr. Swathi Reis PROF 14(COMP METB)on 07-10-2 022 Albumin [Mass/Vol] 2.5 g/dL Critically low 3.4-5.0 Th [facility] Comment on above: Performed By: #### B SHOE MAKER, CMP ####[facility] Hnjirqahps[address] [place] [address]Dr. Swathi Reis Albumin/Globulin [Mass ratio] 0.7 {ratio} Normal [facility] Comment on above: Performed By: #### B SHOE MAKER, CMP ####[facility] Muyjbtdtgq[address]54[address] [place], [place] [address]Dr. Swathi Reis ALP [Catalytic activity/Vol] 71 U/L Normal 46-116 [facility] Comment on above: Performed By: #### B SHOE MAKER, CMP ####[facility] Ncljnmutbn[address] [place], [place] [address]Dr. Swathi Reis ALT [Catalytic activity/Vol] 12 U/L Critically low 14-59 [facility] Comment on above: Performed By: #### B SHOE MAKER, CMP ####[facility] Ucstovywqx8030[address] [place], [place] [address]Dr. Swathi Reis Anion gap [Moles/Vol] 10.1 mmol/L Normal Th [facility] Comment on above: Performed By: #### B SHOE MAKER, CMP ####[facility] Llqlmvbshc[address]49[address] [place], [place] [address]Dr. Swathi Reis AST [Catalytic activity/Vol] 11 U/L Critically low 15-37 [facility] Comment on above: Performed By: #### B SHOE MAKER, CMP ####[facility] Bgmlgxodmh3128[address] [place], [place] [address]Dr. Swathi Reis Bilirubin [Mass/Vol] 0.4 mg/dL Normal 0.2-1.0 [facility] Comment on above: Performed By: #### B SHOE MAKER, CMP ####[facility] Fmrlzpezma39[address] [place] [id number]. Swathi Reis Calcium [Mass/Vol] 9.0 mg/dL Normal 8.5-10.1 [facility] Comment on above: Performed By: #### B SHOE MAKER, CMP ####[facility] Yasyfmwqvb9231 [place] [id number]. Swathi Reis Chloride [Moles/Vol] 107 mmol/L Normal 98-107 [facility] Comment on above: Performed By: #### B SHOE MAKER, CMP ####[facility] Fhvlpwqndj0413[address] [place], [place] [address]Dr. Swathi Reis CO2 [Moles/Vol] 28.9 mmol/L Normal 21.0-32.0 [facility] Comment on above: Performed By: #### B SHOE MAKER, CMP ####[facility] Qgdpuvzlns3309[address] [place], [place] [address]Dr. Swathi Reis Creatinine [Mass/Vol] 2.01 mg/dL Critically high 0.55-1.02 [facility] Comment on above: Performed By: #### B SHOE MAKER, CMP ####[facility] Avouucpeyq1657[address] [place], [place] [address]Dr. Swathi Reis EGFR-AF MONTENEGRIN 29 mL/min/1.73m2 Critically low >=60 [facility] Comment on above: Performed By: #### B SHOE MAKER, CMP ####[facility] Aqwoeqvors4868[address] [place], [place] [address]Dr. Swathi Chato EGFR-NON AF MONTENEGRIN 24 mL/min/1.73m2 Critically low >=60 [facility] Comment on above: Performed By: #### B SHOE MAKER, CMP ####[facility] Wyzdajapkn255[address] [place], [place] [address]Dr. Swathi Reis Globulin (S) [Mass/Vol] 3.6 g/dL Normal [facility] Comment on above: Performed By: #### B SHOE MAKER, CMP ####[facility] Wvhszvktgu998[address] [place], [place] [address]Dr. Inessatracy Chato Glucose [Mass/Vol] 123 mg/dL Critically high 74-106 [facility] Comment on above: Performed By: #### B SHOE MAKER, CMP ####[facility] Raokcmpnki7433[address] [place], [place] [address]Dr. Swathi Reis Potassium [Moles/Vol] 4.0 mmol/L Normal 3.5-5.1 [facility] Comment on above: Performed By: #### B SHOE MAKER, CMP ####[facility] Rbdhuoszgc4627[address] [place], [place] [address]Dr. Swathi Reis Protein [Mass/Vol] 6.1 g/dL Critically low 6.4-8.2 Th [facility] Comment on above: Performed By: #### B SHOE MAKER, CMP ####[facility] Hxmelonhup[address]77[address] [place], [place] [address]Dr. Swathi Reis Sodium [Moles/Vol] 142 mmol/L Normal 136-145 [facility] Comment on above: Performed By: #### B SHOE MAKER, CMP ####[facility] Acrnznblci0216[address] [place], [place] [address]Dr. Swathi Reis Urea nitrogen [Mass/Vol] 27.0 mg/dL Critically high 7.0-18.0 [facility] Comment on above: Performed By: #### B SHOE MAKER, CMP ####[facility] Tnjeeajhdz[address]206[address] [place], [place] [address]Dr. Swathi Reis Urea nitrogen/Creatinine [Mass ratio] 13.4 mg/mg Normal [facility] Comment on above: Performed By: #### B SHOE MAKER, CMP ####[facility] Shnozzaycu[address] [place], [place] [address]Dr. Swathi Reis BNPon 07-09-2022 Natriuretic peptide B (Bld) [Mass/Vol] 5933.0 pg/mL Critically high <=1,800.0 [facility] Comment on above: Performed By: #### B SHOE MAKER, CMP ####[facility] Dcfvrfeffg[address] [place], [place] [address]Dr. Swathi Reis CBC AUTO DIFFon 07-09-2022 BASO # 0.1 103/ul Normal 0.0-0.1 [facility] Comment on above: Performed By: #### C BC ####[facility] Ol[address]zqhihg[address] [place] [id number]. Swathi Reis Basophils/100 WBC (Bld) 0.5 % Normal 0.2-2.0 [facility] Comment on above: Performed By: #### C BC ####[facility] Wyprlxjhpw6435 [place] [id number]. Swathi Reis EO # 0.3 103/ul Normal 0.0-0.7 [facility] Comment on above: Performed By: #### C BC ####[facility] Zesjglqbjf[address] [place], [place] [address]Dr. Swathi Reis Eosinophils/100 WBC (Bld) 2.9 % Normal 0.9-7.0 [facility] Comment on above: Performed By: #### C BC ####[facility] Ptvdih[address] [place], [place] [address]Dr. Swathi Reis Erythrocyte distribution width (RBC) [Ratio] 13.4 % Normal 11.0-15.0 [facility] Comment on above: Performed By: #### C BC ####[facility] Ylinktspyq[address] [place], [place] [id number]. Swatih Reis Hematocrit (Bld) [Volume fraction] 28.8 % Critically low 36.0-48.0 [facility] Comment on above: Performed By: #### C BC ####[facility] [address]mcgct[address]lx[address] [place], [place] [phone]. Swathi Reis Hemoglobin (Bld) [Mass/Vol] 9.2 g/dL Critically low 12.0-16.0 [facility] Comment on above: Performed By: #### C BC ####[facility] X[address]vrrup23[address] [place] [phone]. Swathi Reis IG # 0.04 10e3/ul Critically high 0.00-0.03 [facility] Comment on above: Performed By: #### C BC ####[facility] Ruuunsiazi[address] [place], [place] [phone]. Swathi Reis IG % 0.4 % Normal 0.0-0.5 [facility] Comment on above: Performed By: #### C BC ####[facility] Qswwknffnb2881 [place], [place] [address]Fz. Swathi Reis LYMPH # 1.2 103/ul Normal 1.2-3.8 [facility] Comment on above: Performed By: #### C BC ####[facility] Ohkhdtijxz2547 [place], [place] [address]Ns. Swathi Reis Lymphocytes/100 WBC (Bld) 10.9 % Critically low 20.5-60.0 [facility] Comment on above: Performed By: #### C BC ####[facility] Wdvyamaufd4265 [place] [phone]. Swathi Chato MANUAL DIFF REQ NO Normal [facility] Comment on above: Performed By: #### C BC ####[facility] Mvlpqpxiyv2043 [place] [phone]. Swathi Chato MCH (RBC) [Entitic mass] 30.0 pg Normal 26.7-34.0 [facility] Comment on above: Performed By: #### C BC ####[facility] Jeckkqoirv9191 [place] [phone]. Swathi Reis MCHC (RBC) [Mass/Vol] 31.9 g/dL Normal 29.9-35.2 [facility] Comment on above: Performed By: #### C BC ####[facility] Nodeiitkxt5951 [place] [phone]. Swathi Chato MCV (RBC) [Entitic vol] 93.8 fL Normal 81.0-99.0 [facility] Comment on above: Performed By: #### C BC ####[facility] Pujltkcxef5459 [place] [phone]. Swathi Chato MONO # 1.0 103/ul Critically high 0.3-0.8 [facility] Comment on above: Performed By: #### C BC ####[facility] Nclgyndjeg3872 [place] [phone]. Swathi Chato Monocytes/100 WBC (Bld) 9.6 % Normal 1.7-12.0 [facility] Comment on above: Performed By: #### C BC ####[facility] Uvqadvdxxo0868 [place] [phone]. Swathi Reis NEUT # 8.0 103/ul Critically high 1.4-6.5 [facility] Comment on above: Performed By: #### C BC ####[facility] Wbgbqffxgp9423 [place] [phone]. Swathi Reis Neutrophils/100 WBC (Bld) 75.7 % Critically high 43.0-75.0 [facility] Comment on above: Performed By: #### C BC ####[facility] Ymddkzgomv1806 [place] [phone]. Swathi Reis Platelet mean volume (Bld) [Entitic vol] 10.6 fL Normal 9.5-13.5 [facility] Comment on above: Performed By: #### C BC ####[facility] Mmxdwspwja1531 [place] [phone]. Swathi Reis PLT 307 103/ul Normal 150-450 [facility] Comment on above: Performed By: #### C BC ####[facility] Utiyrnwekf9518 [place] [phone]. Swathi Reis RBC 3.07 106/ul Critically low 4.20-5.40 [facility] Comment on above: Performed By: #### C BC ####[facility] Txzekmbdzv2187 [place] [phone]. Swathi Reis WBC 10.6 103/ul Normal 4.0-11.0 [facility] Comment on above: Performed By: #### C BC ####[facility] Omxnargzlk7928 [place] [phone]. Swathi Reis POINT OF CARE GLUCOSEon 10- Glucose [Mass/Vol] 168 mg/dL Critically high 74-106 [facility] Comment on above: Performed By: #### P OCGLUC ####[facility] Zsaedhrzmj5105 [place] [phone]. Swathi Reis Glucose [Mass/Vol] 136 mg/dL Critically high 74-106 [facility] Comment on above: Performed By: #### P OCGLUC ####[facility] Uirndlihot5002 [place] [address]Dr. Swathi Reis Glucose [Mass/Vol] 203 mg/dL Critically high 74-106 [facility] Comment on above: Performed By: #### P OCGLUC ####[facility] Bebfajzkbl2722 [place] [address]Dr. Swathi Reis PROF 14(COMP METB)on 07-09-2 022 Albumin [Mass/Vol] 2.6 g/dL Critically low 3.4-5.0 [facility] Comment on above: Performed By: #### B SHOE MAKER, CMP ####[facility] Sbfxcyvxku9027 [place] [address]Dr. Swathi Reis Albumin/Globulin [Mass ratio] 0.7 {ratio} Normal [facility] Comment on above: Performed By: #### B SHOE MAKER, CMP ####[facility] Rbvhzgfhjz20[address] [place], [place] [address]Dr. Swathi Reis ALP [Catalytic activity/Vol] 73 U/L Normal 46-116 [facility] Comment on above: Performed By: #### B SHOE MAKER, CMP ####[facility] Ynmmetojlk50[address] [place], [place] [address]Dr. Swathi Reis ALT [Catalytic activity/Vol] 12 U/L Critically low 14-59 [facility] Comment on above: Performed By: #### B SHOE MAKER, CMP ####[facility] Lioyzpfbvs0732 [place] [address]Dr. Swathi Reis Anion gap [Moles/Vol] 12.4 mmol/L Normal [facility] Comment on above: Performed By: #### B SHOE MAKER, CMP ####[facility] Jjibyjgaoe0185 [place] [address]Dr. Swathi Reis AST [Catalytic activity/Vol] 10 U/L Critically low 15-37 [facility] Comment on above: Performed By: #### B SHOE MAKER, CMP ####[facility] Yibmpefcep[address] [place], [place] [address]Dr. Swathi Reis Bilirubin [Mass/Vol] 0.5 mg/dL Normal 0.2-1.0 [facility] Comment on above: Performed By: #### B SHOE MAKER, CMP ####[facility] Mvbgtwxkrx7624 [place] [address]Dr. Swathi Reis Calcium [Mass/Vol] 8.7 mg/dL Normal 8.5-10.1 [facility] Comment on above: Performed By: #### B SHOE MAKER, CMP ####[facility] Cluqrpolfb884[address] [place], [place] [address]Dr. Swathi Reis Chloride [Moles/Vol] 105 mmol/L Normal 98-107 [facility] Comment on above: Performed By: #### B SHOE MAKER, CMP ####[facility] Xsjtmkvkcy5[address] [place], [place] [address]Dr. Swathi Reis CO2 [Moles/Vol] 27.3 mmol/L Normal 21.0-32.0 The [facility] Comment on above: Performed By: #### B SHOE MAKER, CMP ####[facility] Ildizewzdp920[address] [place], [place] [address]Dr. Swathi Reis Creatinine [Mass/Vol] 2.02 mg/dL Critically high 0.55-1.02 [facility] Comment on above: Performed By: #### B SHOE MAKER, CMP ####[facility] Gfgskscqpu7[address] [place], [place] [address]Dr. Swathi Reis EGFR-AF MONTENEGRIN 29 mL/min/1.73m2 Critically low >=60 [facility] Comment on above: Performed By: #### B SHOE MAKER, CMP ####[facility] Xgvyaqpzke6664[address] [place], [place] [address]Dr. Swathi Reis EGFR-NON AF MONTENEGRIN 24 mL/min/1.73m2 Critically low >=60 [facility] Comment on above: Performed By: #### B SHOE MAKER, CMP ####[facility] Qaccefruxv6[address] [place], [place] [address]Dr. Swathi Reis Globulin (S) [Mass/Vol] 3.6 g/dL Normal [facility] Comment on above: Performed By: #### B SHOE MAKER, CMP ####[facility] Dqqrnzokca7464[address] [place], [place] [address]Dr. Swathi Chato Glucose [Mass/Vol] 134 mg/dL Critically high 74-106 T [facility] Comment on above: Performed By: #### B SHOE MAKER, CMP ####[facility] Ohpvnpbigu5056[address] [place], [place] [address]Dr. Swathi Reis Potassium [Moles/Vol] 3.7 mmol/L Normal 3.5-5.1 [facility] Comment on above: Performed By: #### B SHOE MAKER, CMP ####[facility] Cmndwnkbzv[address] [place], [place] [address]Dr. Swathi Reis Protein [Mass/Vol] 6.2 g/dL Critically low 6.4-8.2 Th [facility] Comment on above: Performed By: #### B SHOE MAKER, CMP ####[facility] Kxiovkypkk[address] [place], [place] [address]Dr. Swathi Reis Sodium [Moles/Vol] 141 mmol/L Normal 136-145 [facility] Comment on above: Performed By: #### B SHOE MAKER, CMP ####[facility] Nporgotdzq4636[address] [place], [place] [address]Dr. Swathi Reis Urea nitrogen [Mass/Vol] 29.0 mg/dL Critically high 7.0-18.0 [facility] Comment on above: Performed By: #### B SHOE MAKER, CMP ####[facility] Sypkscpbgf64[address] [place], [place] [address]Dr. Inessatracy Reis Urea nitrogen/Creatinine [Mass ratio] 14.4 mg/mg Normal [facility] Comment on above: Performed By: #### B SHOE MAKER, CMP ####[facility] Xdbhsuugdd7[address] [place], [place] [address]Dr. Swathi Reis XR CHEST 2 Von 07-09-2022 XR CHEST 2 V Normal [facility] BNPon 07-08-2022 Natriuretic peptide B (Bld) [Mass/Vol] 6044.0 pg/mL Critically high <=1,800.0 [facility] Comment on above: Performed By: #### B SHOE MAKER, CMP ####[facility] Ewfiepsabp09[address] [place], [place] [address]Dr. Inessatracy Chato CBC AUTO DIFFon 10-16-2022 BASO # 0.1 103/ul Normal 0.0-0.1 [facility] Comment on above: Performed By: #### C BC ####[facility] Drolnzjhge7955 [place] [address]Dr. Swathi Reis Basophils/100 WBC (Bld) 0.7 % Normal 0.2-2.0 [facility] Comment on above: Performed By: #### C BC ####[facility] Crryhugmin86[address] [place], [place] [address]DrOtto Reis EO # 0.3 103/ul Normal 0.0-0.7 [facility] Comment on above: Performed By: #### C BC ####[facility] Qilulyfdft[address] [place], [place] [address]Dr. Swathi Reis Eosinophils/100 WBC (Bld) 2.9 % Normal 0.9-7.0 [facility] Comment on above: Performed By: #### C BC ####[facility] Dqmbxjwcii[address] [place], [place] [address]Dr. Swathi Reis Erythrocyte distribution width (RBC) [Ratio] 13.5 % Normal 11.0-15.0 [facility] Comment on above: Performed By: #### C BC ####[facility] Yhcmrbsdxl[address] [place], [place] [address]Dr. Swathi Reis Hematocrit (Bld) [Volume fraction] 29.9 % Critically low 36.0-48.0 [facility] Comment on above: Performed By: #### C BC ####[facility] Rmpkariclm13[address] [place], [place] [address]Dr. Swathi Reis Hemoglobin (Bld) [Mass/Vol] 9.5 g/dL Critically low 12.0-16.0 [facility] Comment on above: Performed By: #### C BC ####[facility] Voqkplxkaf6[address] [place], [place] [address]DrOtto Reis IG # 0.03 10e3/ul Normal 0.00-0.03 [facility] Comment on above: Performed By: #### C BC ####[facility] Fbqnopbxrx[address]87[address] [place], [place] [address]Dr. Swathi Reis IG % 0.3 % Normal 0.0-0.5 [facility] Comment on above: Performed By: #### C BC ####[facility] Phrjrerplh1166 [place] [address]DrOtto Reis LYMPH # 0.9 103/ul Critically low 1.2-3.8 The [facility] Comment on above: Performed By: #### C BC ####[facility] Vpqxvuuwbj5653 [place] [address]DrOtto Reis Lymphocytes/100 WBC (Bld) 8.4 % Critically low 20.5-60.0 [facility] Comment on above: Performed By: #### C BC ####[facility] Nxunppktjs3747 [place] [address]DrOtto Reis MANUAL DIFF REQ NO Normal [facility] Comment on above: Performed By: #### C BC ####[facility] Ywjlxjldsh6733 [place] [address]DrOtto Reis MCH (RBC) [Entitic mass] 30.1 pg Normal 26.7-34.0 [facility] Comment on above: Performed By: #### C BC ####[facility] Pbkbsrjhqz5553 [place] [address]DrOtto Reis MCHC (RBC) [Mass/Vol] 31.8 g/dL Normal 29.9-35.2 [facility] Comment on above: Performed By: #### C BC ####[facility] Ntkxhgpksh0178 [place] [address]DrOtto Reis MCV (RBC) [Entitic vol] 94.6 fL Normal 81.0-99.0 [facility] Comment on above: Performed By: #### C BC ####[facility] Ejmerlbdnf8257 [place] [address]DrOtto Reis MONO # 1.0 103/ul Critically high 0.3-0.8 [facility] Comment on above: Performed By: #### C BC ####[facility] Eingkwbdle9493 [place] [address]DrOtto Reis Monocytes/100 WBC (Bld) 9.5 % Normal 1.7-12.0 [facility] Comment on above: Performed By: #### C BC ####[facility] Qnghxrqlgh2392 [place] [phone]. Swathi Reis NEUT # 8.3 103/ul Critically high 1.4-6.5 [facility] Comment on above: Performed By: #### C BC ####[facility] Hcfmpahaeg1197 [place] [address]DrOtto Swathi Reis Neutrophils/100 WBC (Bld) 78.2 % Critically high 43.0-75.0 [facility] Comment on above: Performed By: #### C BC ####[facility] Buvkidvakp[address] [place], [place] [address]Dr. Swathi Reis Platelet mean volume (Bld) [Entitic vol] 10.7 fL Normal 9.5-13.5 [facility] Comment on above: Performed By: #### C BC ####[facility] Ywlfimsibw[address] [place], [place] [address]Dr. Swathi Reis PLT 273 103/ul Normal 150-450 [facility] Comment on above: Performed By: #### C BC ####[facility] Plurpkxsij9768[address] [place], [place] [address]Dr. Swathi Reis RBC 3.16 106/ul Critically low 4.20-5.40 [facility] Comment on above: Performed By: #### C BC ####[facility] Mnexqpnnxl68[address] [place], [place] [address]Dr. Swathi Reis WBC 10.6 103/ul Normal 4.0-11.0 [facility] Comment on above: Performed By: #### C BC ####[facility] Muvnuzdcuz509[address] [place], [place] [address]DrOtto Swathi Reis POINT OF CARE GLUCOSEon 06-23 Glucose [Mass/Vol] 243 mg/dL Critically high 74-106 [facility] Comment on above: Performed By: #### P OCGLUC ####[facility] Nwhzbnxqza9[address] [place], [place] [address]Dr. Swathi Reis Glucose [Mass/Vol] 161 mg/dL Critically high 74-106 [facility] Comment on above: Performed By: #### P OCGLUC ####[facility] Ztuickaome8284 [place] [address]Dr. Swathi Reis Glucose [Mass/Vol] 186 mg/dL Critically high 74-106 [facility] Comment on above: Performed By: #### P OCGLUC ####[facility] Vrrmuacgdu8151 [place] [address]Dr. Swathi Reis Glucose [Mass/Vol] 168 mg/dL Critically high -106 [facility] Comment on above: Performed By: #### P OCGLUC ####[facility] Xzqeketoax116[address] [place], [place] [address]Dr. Swathi Chato PROF 14(COMP METB)on 07-08- 022 Albumin [Mass/Vol] 2.5 g/dL Critically low 3.4-5.0 [facility] Comment on above: Performed By: #### B SHOE MAKER, CMP ####[facility] Ehxdrucaij0079[address] [place], [place] [address]Dr. Swathi Chato Albumin/Globulin [Mass ratio] 0.7 {ratio} Normal [facility] Comment on above: Performed By: #### B SHOE MAKER, CMP ####[facility] Knnprhpkew7669[address] [place], [place] [address]Dr. Swathi Chato ALP [Catalytic activity/Vol] 77 U/L Normal 46-116 [facility] Comment on above: Performed By: #### B SHOE MAKER, CMP ####[facility] Wllhefcgec27[address] [place], [place] [address]Dr. Swathi Chato ALT [Catalytic activity/Vol] 16 U/L Normal 14-59 [facility] Comment on above: Performed By: #### B SHOE MAKER, CMP ####[facility] Ygtxfwloqh8158[address] [place], [place] [address]Dr. Inessatracy Chato Anion gap [Moles/Vol] 11.9 mmol/L Normal [facility] Comment on above: Performed By: #### B SHOE MAKER, CMP ####[facility] Zxphwsanhm6347[address] [place], [place] [address]Dr. Swathi Reis AST [Catalytic activity/Vol] 13 U/L Critically low 15-37 [facility] Comment on above: Performed By: #### B SHOE MAKER, CMP ####[facility] Mduzsyrqzf3970[address] [place], [place] [address]Dr. Swathi Reis Bilirubin [Mass/Vol] 0.6 mg/dL Normal 0.2-1.0 [facility] Comment on above: Performed By: #### B SHOE MAKER, CMP ####[facility] Upxijzlaly1630[address] [place], [place] [address]Dr. Swathi Reis Calcium [Mass/Vol] 8.7 mg/dL Normal 8.5-10.1 [facility] Comment on above: Performed By: #### B SHOE MAKER, CMP ####[facility] Ukrdfuwnda8320[address] [place], [place] [address]Dr. Swathi Reis Chloride [Moles/Vol] 105 mmol/L Normal 98-107 [facility] Comment on above: Performed By: #### B SHOE MAKER, CMP ####[facility] Uqqbtqvxwr0494[address] [place], [place] [address]Dr. Swathi Reis CO2 [Moles/Vol] 26.6 mmol/L Normal 21.0-32.0 The [facility] Comment on above: Performed By: #### B SHOE MAKER, CMP ####[facility] Kaubpcmati[address] [place], [place] [address]Dr. Swathi Reis Creatinine [Mass/Vol] 1.54 mg/dL Critically high 0.55-1.02 [facility] Comment on above: Performed By: #### B SHOE MAKER, CMP ####[facility] Hysdiclikk24[address] [place], [place] [address]Dr. Swathi Chato EGFR-AF MONTENEGRIN 40 mL/min/1.73m2 Critically low >=60 [facility] Comment on above: Performed By: #### B SHOE MAKER, CMP ####[facility] Qahmccnjpf25[address] [place], [place] [address]Dr. Inessatracy Chato EGFR-NON AF MONTENEGRIN 33 mL/min/1.73m2 Critically low >=60 [facility] Comment on above: Performed By: #### B SHOE MAKER, CMP ####[facility] Ldhtjfkxht6325 [place] [address]Dr. Swathi Reis Globulin (S) [Mass/Vol] 3.8 g/dL Normal [facility] Comment on above: Performed By: #### B SHOE MAKER, CMP ####[facility] Rdqlzthzhc2573 [place] [address]Dr. Swathi Reis Glucose [Mass/Vol] 153 mg/dL Critically high 74-106 [facility] Comment on above: Performed By: #### B SHOE MAKER, CMP ####[facility] Tmdglqcwsz5684[address] [place], [place] [address]Dr. Swathi Reis Potassium [Moles/Vol] 3.5 mmol/L Normal 3.5-5.1 [facility] Comment on above: Performed By: #### B SHOE MAKER, CMP ####[facility] Ehkpyicgoh8[address] [place], [place] [address]Dr. Swathi Reis Protein [Mass/Vol] 6.3 g/dL Critically low 6.4-8.2 [facility] Comment on above: Performed By: #### B SHOE MAKER, CMP ####[facility] Fudoxirblk3640[address] [place], [place] [address]Dr. Swathi Reis Sodium [Moles/Vol] 140 mmol/L Normal 136-145 [facility] Comment on above: Performed By: #### B SHOE MAKER, CMP ####[facility] Llpsfclhib166[address] [place], [place] [address]Dr. Swathi Reis Urea nitrogen [Mass/Vol] 25.0 mg/dL Critically high 7.0-18.0 [facility] Comment on above: Performed By: #### B SHOE MAKER, CMP ####[facility] Rtfbefricz0911[address] [place], [place] [address]Dr. Swathi Reis Urea nitrogen/Creatinine [Mass ratio] 16.2 mg/mg [facility] Comment on above: Performed By: #### B SHOE MAKER, CMP ####[facility] Warlgrqrus1233[address] [place], [place] [address]Dr. Swathi Reis BNPon 07-07-2022 Natriuretic peptide B (Bld) [Mass/Vol] 6413.0 pg/mL Critically high <=1,800.0 [facility] Comment on above: Performed By: #### B SHOE MAKER, CMP ####[facility] Iqrpjotqya[address] [place], [place] [address]Dr. Swathi Reis CBC AUTO DIFFon 07-07-2022 BASO # 0.1 103/ul Normal 0.0-0.1 [facility] Comment on above: Performed By: #### C BC ####[facility] Tdedsfssih64[address] [place], [place] [address]Dr. Swathi Chato Basophils/100 WBC (Bld) 0.4 % Normal 0.2-2.0 [facility] Comment on above: Performed By: #### C BC ####[facility] Vmvbryaryi[address] [place], [place] [address]Dr. Swathi Reis EO # 0.3 103/ul Normal 0.0-0.7 [facility] Comment on above: Performed By: #### C BC ####[facility] Aoytzzrbkq8[address] [place], [place] [address]Dr. Swathi Reis Eosinophils/100 WBC (Bld) 2.6 % Normal 0.9-7.0 [facility] Comment on above: Performed By: #### C BC ####[facility] Lslclwsgmf[address] [place], [place] [address]Dr. Swathi Reis Erythrocyte distribution width (RBC) [Ratio] 13.7 % Normal 11.0-15.0 [facility] Comment on above: Performed By: #### C BC ####[facility] Ungsbgocin5[address] [place], [place] [address]Dr. Swathi Reis Hematocrit (Bld) [Volume fraction] 28.9 % Critically low 36.0-48.0 [facility] Comment on above: Performed By: #### C BC ####[facility] Dcaucfklku[address] [place], [place] [address]Dr. Swathi Reis Hemoglobin (Bld) [Mass/Vol] 9.3 g/dL Critically low 12.0-16.0 [facility] Comment on above: Performed By: #### C BC ####[facility] Gvrsutzrps[address] [place] [phone]. Swathi Reis IG # 0.04 10e3/ul Critically high 0.00-0.03 [facility] Comment on above: Performed By: #### C BC ####[facility] Nguxykcxwd6373 [place] [phone]. Swathi Reis IG % 0.4 % Normal 0.0-0.5 [facility] Comment on above: Performed By: #### C BC ####[facility] Fozpqxhcen1793 [place] [address]Dr. Swathi Chato LYMPH # 1.0 103/ul Critically low 1.2-3.8 [facility] Comment on above: Performed By: #### C BC ####[facility] Ybmjlxezrz9662 [place] [address]Dr. Swathi Reis Lymphocytes/100 WBC (Bld) 8.6 % Critically low 20.5-60.0 [facility] Comment on above: Performed By: #### C BC ####[facility] Nzoazfgiez8229 [place] [address]Dr. Inessatracy Reis MANUAL DIFF REQ NO Normal [facility] Comment on above: Performed By: #### C BC ####[facility] Mxgfsnvaeg5827 [place] [address]Dr. Swathi Reis MCH (RBC) [Entitic mass] 30.0 pg Normal 26.7-34.0 [facility] Comment on above: Performed By: #### C BC ####[facility] Pecyvvwzke399[address] [place] [address]Dr. Swathi Reis MCHC (RBC) [Mass/Vol] 32.2 g/dL Normal 29.9-35.2 [facility] Comment on above: Performed By: #### C BC ####[facility] Qkopejyvnd9974 [place] [address]Dr. Swathi Reis MCV (RBC) [Entitic vol] 93.2 fL Normal 81.0-99.0 [facility] Comment on above: Performed By: #### C BC ####[facility] Rivrqbjnkx4552 [place] [phone]. Swathi Reis MONO # 1.0 103/ul Critically high 0.3-0.8 [facility] Comment on above: Performed By: #### C BC ####[facility] Kiikuskrvt1779 [place] [phone]. Swathi Reis Monocytes/100 WBC (Bld) 9.0 % Normal 1.7-12.0 [facility] Comment on above: Performed By: #### C BC ####[facility] Djvhstytxv9810 [place] [phone]. Swathi Reis NEUT # 9.0 103/ul Critically high 1.4-6.5 [facility] Comment on above: Performed By: #### C BC ####[facility] [address]uvmc[address] [place] [phone]. Swathi Reis Neutrophils/100 WBC (Bld) 79.0 % Critically high 43.0-75.0 [facility] Comment on above: Performed By: #### C BC ####[facility] Jwvobsohho55[address] [place] [phone]. Swathi Reis Platelet mean volume (Bld) [Entitic vol] 10.7 fL Normal 9.5-13.5 [facility] Comment on above: Performed By: #### C BC ####[facility] Kegtrxqize20[address] [place] [phone]. Swathi Reis PLT 264 103/ul Normal 150-450 [facility] Comment on above: Performed By: #### C BC ####[facility] Efanwmelho7935 [place] [phone]. Swathi Reis RBC 3.10 106/ul Critically low 4.20-5.40 The [facility] Comment on above: Performed By: #### C BC ####[facility] Ulmtzxjcbb7498 [place] [phone]. Swathi Reis WBC 11.4 103/ul Critically high 4.0-11.0 The [facility] Comment on above: Performed By: #### C BC ####[facility] Mpyopokctd[address] [place] [address]Dr. Swathi Reis POINT OF CARE GLUCOSEon 06-23 Glucose [Mass/Vol] 298 mg/dL Critically high 74-106 [facility] Comment on above: Performed By: #### P OCGLUC ####[facility] Lmxiyhfwxt3148 [place] [phone]. Inessatracy Reis Glucose [Mass/Vol] 123 mg/dL Critically high 74-106 [facility] Comment on above: Performed By: #### P OCGLUC ####[facility] Lqneyrghyw24[address] [place] [address]Dr. Swathi Reis Glucose [Mass/Vol] 263 mg/dL Critically high 74-106 [facility] Comment on above: Performed By: #### P OCGLUC ####[facility] Kvlpfoezmm26[address] [place] [address]Dr. Inessatracy Reis Glucose [Mass/Vol] 151 mg/dL Critically high 74-106 [facility] Comment on above: Performed By: #### P OCGLUC ####[facility] Winazdrieq8125 [place] [address]Dr. Swathi Reis PROF 14(COMP METB)on 022 Albumin [Mass/Vol] 2.5 g/dL Critically low 3.4-5.0 Th [facility] Comment on above: Performed By: #### B SHOE MAKER, CMP ####[facility] Dogkgjpdfc5737 [place] [address]Dr. Swathi Reis Albumin/Globulin [Mass ratio] 0.7 {ratio} Normal [facility] Comment on above: Performed By: #### B SHOE MAKER, CMP ####[facility] Ldzymdggck8504 [place] [address]Dr. Swathi Reis ALP [Catalytic activity/Vol] 82 U/L Normal 46-116 [facility] Comment on above: Performed By: #### B SHOE MAKER, CMP ####[facility] Ahodmboltt9[address] [place] [address]Dr. Swathi Reis ALT [Catalytic activity/Vol] 13 U/L Critically low 14-59 [facility] Comment on above: Performed By: #### B SHOE MAKER, CMP ####[facility] Ekfuleruwv0204 [place] [phone]. Swathi Reis Anion gap [Moles/Vol] 11.5 mmol/L Normal Th [facility] Comment on above: Performed By: #### B SHOE MAKER, CMP ####[facility] Sqoimwacoq8965 [place] [phone]. Swathi Reis AST [Catalytic activity/Vol] 12 U/L Critically low 15-37 [facility] Comment on above: Performed By: #### B SHOE MAKER, CMP ####[facility] Epotwymsnk6425 [place] [phone]. Swathi Reis Bilirubin [Mass/Vol] 0.7 mg/dL Normal 0.2-1.0 [facility] Comment on above: Performed By: #### B SHOE MAKER, CMP ####[facility] Prdlerdlsu[address] [place], [place] [address]Dr. Swathi Reis Calcium [Mass/Vol] 8.6 mg/dL Normal 8.5-10.1 [facility] Comment on above: Performed By: #### B SHOE MAKER, CMP ####[facility] Kobvzvnivw6[address] [place] [address]Dr. Swathi Reis Chloride [Moles/Vol] 104 mmol/L Normal 98-107 [facility] Comment on above: Performed By: #### B SHOE MAKER, CMP ####[facility] Hlfvezvabt7157 [place] [phone]. Swathi Reis CO2 [Moles/Vol] 26.6 mmol/L Normal 21.0-32.0 [facility] Comment on above: Performed By: #### B SHOE MAKER, CMP ####[facility] Rbnjlicdzi2215 [place] [phone]. Swathi Reis Creatinine [Mass/Vol] 1.56 mg/dL Critically high 0.55-1.02 [facility] Comment on above: Performed By: #### B SHOE MAKER, CMP ####[facility] Eswrsxgbtc0445 [place] [phone]. Swathi Reis EGFR-AF MONTENEGRIN 39 mL/min/1.73m2 Critically low >=60 [facility] Comment on above: Performed By: #### B SHOE MAKER, CMP ####[facility] Goifnqidyj47[address] [place], [place] [address]Dr. Swathi Reis EGFR-NON AF MONTENEGRIN 32 mL/min/1.73m2 Critically low >=60 [facility] Comment on above: Performed By: #### B SHOE MAKER, CMP ####[facility] Cfgglrxtic64[address] [place], [place] [address]Dr. Swathi Chato Globulin (S) [Mass/Vol] 3.7 g/dL Normal [facility] Comment on above: Performed By: #### B SHOE MAKER, CMP ####[facility] Xmyxbfwlcf[address] [place], [place] [address]Dr. Inessatracy Chato Glucose [Mass/Vol] 149 mg/dL Critically high 74-106 [facility] Comment on above: Performed By: #### B SHOE MAKER, CMP ####[facility] Rknuaxnmha8534[address] [place], [place] [address]Dr. Swathi Reis Potassium [Moles/Vol] 3.1 mmol/L Critically low 3.5-5.1 [facility] Comment on above: Performed By: #### B SHOE MAKER, CMP ####[facility] Wslqxqfmpi20[address] [place], [place] [address]Dr. Swathi Reis Protein [Mass/Vol] 6.2 g/dL Critically low 6.4-8.2 Th [facility] Comment on above: Performed By: #### B SHOE MAKER, CMP ####[facility] Oaqqhpemmu[address] [place], [place] [address]Dr. Swathi Reis Sodium [Moles/Vol] 139 mmol/L Normal 136-145 [facility] Comment on above: Performed By: #### B SHOE MAKER, CMP ####[facility] Fpvflbnynd[address] [place], [place] [address]Dr. Swathi Reis Urea nitrogen [Mass/Vol] 19.0 mg/dL Critically high 7.0-18.0 [facility] Comment on above: Performed By: #### B SHOE MAKER, CMP ####[facility] Rxyvvpyryn8[address] [place], [place] [address]Dr. Inessatracy Reis Urea nitrogen/Creatinine [Mass ratio] 12.2 mg/mg Normal [facility] Comment on above: Performed By: #### B SHOE MAKER, CMP ####[facility] Wzjgoggeiq64[address] [place], [place] [address]Dr. Swathi Reis BNPon 07-06-2022 Natriuretic peptide B (Bld) [Mass/Vol] 4734.0 pg/mL Critically high <=1,800.0 [facility] Comment on above: Performed By: #### B SHOE MAKER, CMP ####[facility] Fsufsuduxg80[address] [place], [place] [address]Dr. Swathi Chato CBC AUTO DIFFon 07-06-2022 BASO # 0.0 103/ul Normal 0.0-0.1 [facility] Comment on above: Performed By: #### C BC ####[facility] Opohpgyvom[address] [place], [place] [address]Dr. Swathi Reis Basophils/100 WBC (Bld) 0.3 % Normal 0.2-2.0 [facility] Comment on above: Performed By: #### C BC ####[facility] Wjpxktdvzy[address] [place], [place] [address]Dr. Swathi Reis EO # 0.0 103/ul Normal 0.0-0.7 [facility] Comment on above: Performed By: #### C BC ####[facility] Ximcbwaeaf[address] [place], [place] [address]Dr. Inessatracy Reis Eosinophils/100 WBC (Bld) 0.1 % Critically low 0.9-7.0 [facility] Comment on above: Performed By: #### C BC ####[facility] Txlkdnaloj[address] [place], [place] [address]Dr. Swathi Reis Erythrocyte distribution width (RBC) [Ratio] 13.5 % Normal 11.0-15.0 [facility] Comment on above: Performed By: #### C BC ####[facility] Kwmcbmncrj[address] [place], [place] [address]Dr. Swathi Reis Hematocrit (Bld) [Volume fraction] 29.6 % Critically low 36.0-48.0 [facility] Comment on above: Performed By: #### C BC ####[facility] Gvwxbyrrym9[address] [place] [address]Dr. Swathi Reis Hemoglobin (Bld) [Mass/Vol] 9.6 g/dL Critically low 12.0-16.0 [facility] Comment on above: Performed By: #### C BC ####[facility] Gpfpguhjlj9[address] [place] [address]Dr. Swathi Reis IG # 0.07 10e3/ul Critically high 0.00-0.03 [facility] Comment on above: Performed By: #### C BC ####[facility] Jfpojvothj9[address] [place] [address]Dr. Swathi Reis IG % 0.5 % Normal 0.0-0.5 [facility] Comment on above: Performed By: #### C BC ####[facility] Anpajkucyw[address] [place], [place] [address]Dr. Swathi Reis LYMPH # 1.4 103/ul Normal 1.2-3.8 [facility] Comment on above: Performed By: #### C BC ####[facility] Fekrnbwocu78[address] [place] [address]Dr. Swathi Reis Lymphocytes/100 WBC (Bld) 9.7 % Critically low 20.5-60.0 [facility] Comment on above: Performed By: #### C BC ####[facility] Cahjkmiqhh[address] [place] [address]Dr. Swathi Reis MANUAL DIFF REQ NO Normal The [facility] Comment on above: Performed By: #### C BC ####[facility] Awftkorqcy[address] [place], [place] [address]Dr. Swathi Reis MCH (RBC) [Entitic mass] 29.9 pg Normal 26.7-34.0 [facility] Comment on above: Performed By: #### C BC ####[facility] Agbqkwaspm[address] [place], [place] [address]Dr. Swathi Reis MCHC (RBC) [Mass/Vol] 32.4 g/dL Normal 29.9-35.2 [facility] Comment on above: Performed By: #### C BC ####[facility] Cytjgrcsro[address] [place] [phone]. Swathi Reis MCV (RBC) [Entitic vol] 92.2 fL Normal 81.0-99.0 [facility] Comment on above: Performed By: #### C BC ####[facility] Mbxarqhnab5407 [place] [phone]. Swathi Reis MONO # 1.3 103/ul Critically high 0.3-0.8 The [facility] Comment on above: Performed By: #### C BC ####[facility] Knuzjvdpnk1904 [place] [phone]. Swathi Reis Monocytes/100 WBC (Bld) 9.4 % Normal 1.7-12.0 [facility] Comment on above: Performed By: #### C BC ####[facility] [address]vqvrrgpxg[address] [place], [place] [address]Dr. Swathi Reis NEUT # 11.4 103/ul Critically high 1.4-6.5 The [facility] Comment on above: Performed By: #### C BC ####[facility] Lhpncckrcr3468 [place] [phone]. Swathi Reis Neutrophils/100 WBC (Bld) 80.0 % Critically high 43.0-75.0 [facility] Comment on above: Performed By: #### C BC ####[facility] Psorcpdzis2509 [place] [phone]. Swathi Reis Platelet mean volume (Bld) [Entitic vol] 10.6 fL Normal 9.5-13.5 [facility] Comment on above: Performed By: #### C BC ####[facility] Samuhmpdbp4676 [place] [phone]. Swathi Reis PLT 283 103/ul Normal 150-450 [facility] Comment on above: Performed By: #### C BC ####[facility] Lljhfgkaqy1098 [place] [phone]. Inessatracy Chato RBC 3.21 106/ul Critically low 4.20-5.40 The [facility] Comment on above: Performed By: #### C BC ####[facility] Hsvpxmdjjq3220 [place] [phone]. Swathi Reis WBC 14.2 103/ul Critically high 4.0-11.0 [facility] Comment on above: Performed By: #### C BC ####[facility] Xsayjkrdem2349 [place] [phone]. Swathi Reis ECHOCARDIO M/2D COMPLETEon ECHOCARDIO M/2D COMPLETE Normal [facility] POINT OF CARE GLUCOSEon 06-23 Glucose [Mass/Vol] 227 mg/dL Critically high 74-106 [facility] Comment on above: Performed By: #### P OCGLUC ####[facility] Migwosdqbx0035 [place] [address]Dr. Swathi Reis Glucose [Mass/Vol] 175 mg/dL Critically high 74-106 [facility] Comment on above: Performed By: #### P OCGLUC ####[facility] Yivavvhlaq4000 [place] [address]Dr. Swathi Reis PROF 14(COMP METB)on 07-06- 022 Albumin [Mass/Vol] 2.6 g/dL Critically low 3.4-5.0 [facility] Comment on above: Performed By: #### B SHOE MAKER, CMP ####[facility] Foyoeylwbl0323 [place] [address]Dr. Swathi Reis Albumin/Globulin [Mass ratio] 0.7 {ratio} Normal [facility] Comment on above: Performed By: #### B SHOE MAKER, CMP ####[facility] Mipzjbwjgg6117 [place] [address]Dr. Swathi Reis ALP [Catalytic activity/Vol] 79 U/L Normal 46-116 [facility] Comment on above: Performed By: #### B SHOE MAKER, CMP ####[facility] Pyblwxeptj3940 [place] [address]Dr. Swathi Reis ALT [Catalytic activity/Vol] 17 U/L Normal 14-59 [facility] Comment on above: Performed By: #### B SHOE MAKER, CMP ####[facility] Coiidxnkvb6726 [place] [address]Dr. Swathi Reis Anion gap [Moles/Vol] 11.5 mmol/L Normal [facility] Comment on above: Performed By: #### B SHOE MAKER, CMP ####[facility] Bgfrubppga[address] [place], [place] [address]Dr. Swathi Reis AST [Catalytic activity/Vol] 11 U/L Critically low 15-37 [facility] Comment on above: Performed By: #### B SHOE MAKER, CMP ####[facility] Irssrfjjfb45[address] [place], [place] [address]Dr. Swathi Reis Bilirubin [Mass/Vol] 0.9 mg/dL Normal 0.2-1.0 [facility] Comment on above: Performed By: #### B SHOE MAKER, CMP ####[facility] Pekitgaeby164[address] [place], [place] [address]Dr. Swathi Reis Calcium [Mass/Vol] 8.3 mg/dL Critically low 8.5-10.1 [facility] Comment on above: Performed By: #### B SHOE MAKER, CMP ####[facility] Bdayomiovw[address] [place], [place] [address]Dr. Swathi Reis Chloride [Moles/Vol] 102 mmol/L Normal 98-107 [facility] Comment on above: Performed By: #### B SHOE MAKER, CMP ####[facility] Vfolmnxfzk[address] [place], [place] [address]Dr. Swathi Reis CO2 [Moles/Vol] 29.5 mmol/L Normal 21.0-32.0 [facility] Comment on above: Performed By: #### B SHOE MAKER, CMP ####[facility] Qkwbhxojsr23[address] [place], [place] [address]Dr. Swathi Reis Creatinine [Mass/Vol] 1.47 mg/dL Critically high 0.55-1.02 [facility] Comment on above: Performed By: #### B SHOE MAKER, CMP ####[facility] Ssekpiriuq0[address] [place], [place] [address]Dr. Swathi Reis EGFR-AF MONTENEGRIN 42 mL/min/1.73m2 Critically low >=60 [facility] Comment on above: Performed By: #### B SHOE MAKER, CMP ####[facility] Ivdosxoibs3647 [place] [address]Dr. Swathi Reis EGFR-NON AF MONTENEGRIN 34 mL/min/1.73m2 Critically low >=60 [facility] Comment on above: Performed By: #### B SHOE MAKER, CMP ####[facility] Rvkgrgjswr3985 [place] [address]Dr. Swathi Reis Globulin (S) [Mass/Vol] 3.7 g/dL Normal [facility] Comment on above: Performed By: #### B SHOE MAKER, CMP ####[facility] Xhmdckaanc4135 [place] [address]Dr. Swathi Reis Glucose [Mass/Vol] 150 mg/dL Critically high 74-106 [facility] Comment on above: Performed By: #### B SHOE MAKER, CMP ####[facility] Fllrzhfjrq64[address] [place], [place] [address]Dr. Swathi Chato Potassium [Moles/Vol] 3.0 mmol/L Critically low 3.5-5.1 [facility] Comment on above: Performed By: #### B SHOE MAKER, CMP ####[facility] Qhckgeubha[address] [place], [place] [address]Dr. Swathi Reis Protein [Mass/Vol] 6.3 g/dL Critically low 6.4-8.2 Th [facility] Comment on above: Performed By: #### B SHOE MAKER, CMP ####[facility] Mzjsyywrlu5[address] [place], [place] [address]Dr. Swathi Reis Sodium [Moles/Vol] 140 mmol/L Normal 136-145 [facility] Comment on above: Performed By: #### B SHOE MAKER, CMP ####[facility] Tvdmklpvvx46[address] [place], [place] [address]Dr. Swathi Reis Urea nitrogen [Mass/Vol] 16.0 mg/dL Normal 7.0-18.0 [facility] Comment on above: Performed By: #### B SHOE MAKER, CMP ####[facility] Efuzbgrtgt[address] [place], [place] [address]Dr. Swathi Reis Urea nitrogen/Creatinine [Mass ratio] 10.9 mg/mg Normal [facility] Comment on above: Performed By: #### B SHOE MAKER, CMP ####[facility] Nwxdmzgpty67[address] [place], [place] [address]Dr. Swathi Reis XR CHEST 2 Von 07-06-2022 XR CHEST 2 V Normal [facility] BLOOD GASES BTYon 07-05-2022 02 MODE NASAL CANNULA Normal The [facility] Comment on above: Performed By: #### A BG ####[facility] Rwljwijwvo[address] [place], [place] [address]Dr. Swathi Reis ALLENS TEST Positive [facility] Comment on above: Performed By: #### A BG ####[facility] Quvhullzge[address] [place], [place] [address]Dr. Swathi Reis Base excess Calc (Bld) [Moles/Vol] 3.1 mmol/L Critically high -2.0-2.0 [facility] Comment on above: Performed By: #### A BG ####[facility] Gpeyaigyih[address] [place], [place] [address]Dr. Swathi Reis BIPAP PRESSURE Normal [facility] Comment on above: Performed By: #### A BG ####[facility] Cxbqevaemi3[address] [place], [place] [address]Dr. Swathi Reis CPAP [facility] Comment on above: Performed By: #### A BG ####[facility] Goviuhwyfw8[address] [place], [place] [address]Dr. Swathi Reis FIO2 Normal [facility] Comment on above: Performed By: #### A BG ####[facility] Ypizvjhtvu[address] [place], [place] [address]Dr. Swathi Reis HCO3 (Bld) [Moles/Vol] 27.0 mmol/L Critically high 22.0-26 .0 [facility] Comment on above: Performed By: #### A BG ####[facility] Bncqpssmzh[address] [place], [place] [address]Dr. Swathi Reis LPM 5 Normal [facility] Comment on above: Performed By: #### A BG ####[facility] Qsgglncane9988 [place] [address]Dr. Swathi Reis MINUTE VOLUME Normal [facility] Comment on above: Performed By: #### A BG ####[facility] Abakfemfvw60[address] [place], [place] [address]Dr. Swathi Reis Oxygen (Bld) [Partial pressure] 71.4 mm[Hg] Critically low 80.0-100.0 [facility] Comment on above: Performed By: #### A BG ####[facility] Slvyjuwekn4[address] [place], [place] [address]Dr. Swathi Reis Oxygen saturation in Blood 95.5 % Normal 95.0-100.0 [facility] Comment on above: Performed By: #### A BG ####[facility] Zagxferjni7257[address] [place], [place] [address]Dr. Swathi Reis PCO2 40.2 mmHg Normal 35.0-45.0 [facility] Comment on above: Performed By: #### A BG ####[facility] Ukvirbyxho6[address] [place], [place] [address]Dr. Swathi Reis PEEP Normal [facility] Comment on above: Performed By: #### A BG ####[facility] Aptuurwlme10[address] [place], [place] [address]Dr. Swathi Reis pH (Bld) 7.440 [pH] Normal 7.350-7.450 [facility] Comment on above: Performed By: #### A BG ####[facility] Mrpdjtvqav[address] [place], [place] [address]Dr. Swathi Reis PIP Normal [facility] Comment on above: Performed By: #### A BG ####[facility] Okprbgpwtq[address] [place], [place] [address]Dr. Swathi Reis PS Normal [facility] Comment on above: Performed By: #### A BG ####[facility] Mycffxdrsm01[address] [place], [place] [address]Dr. Swathi Reis PUNCTURE SITE RR Normal [facility] Comment on above: Performed By: #### A BG ####[facility] Fftorarunn[address] [place], [place] [address]Dr. Swathi Reis RATE Normal [facility] Comment on above: Performed By: #### A BG ####[facility] Vhhwpblvmf5367 [place] [phone]. Swathi Reis VENT MODE Normal [facility] Comment on above: Performed By: #### A BG ####[facility] Osxjpjhexs6332 [place] [phone]. Swathi Resi VT Normal [facility] Comment on above: Performed By: #### A BG ####[facility] Eagspejtoe4985 [place] [phone]. Swathi Reis BNPon 07-05-2022 Natriuretic peptide B (Bld) [Mass/Vol] 2257.0 pg/mL Critically high <=1,800.0 [facility] Comment on above: Performed By: #### H STROPN, CMP, BNP ####[facility] Jviifnlbcy6714 [place] [address]Dr. Swathi Reis CARDIAC TRINA 3-6on 2 CK [Catalytic activity/Vol] 54 U/L Normal 26-192 [facility] Comment on above: Performed By: #### C MREP ####[facility] Moibmdiimx[address] [place], [place] [address]Dr. Swathi Reis CK.MB [Mass/Vol] ng/mL Normal <=3.60 [facility] Comment on above: Performed By: #### C MREP ####[facility] Ohjuecqwzu[address] [place], [place] [address]Dr. Swathi Reis HSTROP 18.6 pg/mL Normal 4.0-51.3 [facility] Comment on above: Result Comment: CUT- OFF POINTS HAVE BEEN ESTABLISHED BASED ON THE FOURTH UNIVERSAL DEFINITIONS OF MYOCARDIALINFARCTION. THE UPPER REFERENCE LIMIT (URL) OF TROPONIN, DEFINED THE 99TH PERCENTILE OFcTnI DISTRIBUTION IN A REFERENCE POPULATION, HAS BEEN CONFIRMED THE DECISION THRESHOLDFOR MS DIAGNOSIS. Performed By: #### C MREP ####[facility] [address]careq[address] [place], [place] [id number]. Swathi Chato CK [Catalytic activity/Vol] 38 U/L Normal 26-192 [facility] Comment on above: Performed By: #### C MREP ####[facility] Jiwvuvhrax1341 [place] [address]Dr. Swathi Chato CK.MB [Mass/Vol] 0.51 ng/mL Normal <=3.60 [facility] Comment on above: Performed By: #### C MREP ####[facility] Fsauzubtdi6065 [place] [address]Dr. Swathi Chato HSTROP 16.6 pg/mL Normal 4.0-51.3 [facility] Comment on above: Result Comment: CUT- OFF POINTS HAVE BEEN ESTABLISHED BASED ON THE FOURTH UNIVERSAL DEFINITIONS OF MYOCARDIALINFARCTION. THE UPPER REFERENCE LIMIT (URL) OF TROPONIN, DEFINED THE 99TH PERCENTILE OFcTnI DISTRIBUTION IN A REFERENCE POPULATION, HAS BEEN CONFIRMED THE DECISION THRESHOLDFOR MS DIAGNOSIS. Performed By: #### C MREP ####[facility] Gbcsvrkanu7753 [place] [address]Dr. Swathi Reis CBC W MANUAL DIFFon 07-05-20 22 ATYPICAL LYMPH # Normal [facility] Comment on above: Performed By: #### C BCMAN ####[facility] Vgicvtgnck07[address] [place] [address]Dr. Swathi Chato ATYPICAL LYMPH % Normal [facility] Comment on above: Performed By: #### C BCMAN ####[facility] Htxybcowum6446 [place] [address]Dr. Swathi Reis BAND # 0.4 103/ul Critically high 0.0-0.3 [facility] Comment on above: Performed By: #### C BCMAN ####[facility] Xglfrqmpeu3912 [place] [address]Dr. Swathi Reis BAND % 2 % Normal 0-5 [facility] Comment on above: Performed By: #### C BCMAN ####[facility] Ptbeogcgsw3868 [place] [address]Dr. Swathi Reis BASOM # 0.00 103/ul Normal 0.00-0.10 [facility] Comment on above: Performed By: #### C BCMAN ####[facility] Bppfqkrzag1310 [place] [phone]. Swathi Reis BASOM % 0.0 % Critically low 0.2-2.0 The [facility] Comment on above: Performed By: #### C BCMAN ####[facility] Hxzqqnnrlm4154 [place] [phone]. Swathi Reis BLAST # Normal [facility] Comment on above: Performed By: #### C BCMAN ####[facility] Bevzehzxol5861 [place] [phone]. Swathi Reis BLAST % Normal [facility] Comment on above: Performed By: #### C BCMAN ####[facility] [address]apxaqh[address] [place] [address]Dr. Swathi Reis CORRECTED WBC Normal 4.0-11.0 [facility] Comment on above: Performed By: #### C BCYUN ####[facility] Unlzcurasd[address] [place], [place] [address]Dr. Swathi Reis EOS # 0.00 103/ul Normal 0.00-0.70 [facility] Comment on above: Performed By: #### C BCMAN ####[facility] Jausloxjdy[address] [place], [place] [address]Dr. Swathi Reis EOS% 0.0 % Critically low 0.9-7.0 [facility] Comment on above: Performed By: #### C BCMAN ####[facility] Nfgmtboafx[address] [place], [place] [address]Dr. Swathi Reis HCT 32.7 % Critically low 36.0-48.0 [facility] Comment on above: Performed By: #### C BCMAN ####[facility] Jrkpnkwicn7900 [place] [phone]. Swathi Reis HGB 10.6 g/dl Critically low 12.0-16.0 [facility] Comment on above: Performed By: #### C BCMAN ####[facility] [address] [place], [place] [phone]. Swathi Reis LYMPHM # 0.84 103/ul Critically low 1.20-3.80 The [facility] Comment on above: Performed By: #### C NGA ####[facility] Zvlsinvhjc9985 [place] [phone]. Swathi Reis LYMPHM% 4.0 % Critically low 20.5-60.0 [facility] Comment on above: Performed By: #### C NGA ####[facility] Ckdlyamhug6679 [place] [phone]. Swathi Reis MCH 30.1 pg Normal 26.7-34.0 The [facility] Comment on above: Performed By: #### C NGA ####[facility] Hbwyanipki8829 [place] [phone]. Swathi Reis MCHC 32.4 g/dl Normal 29.9-35.2 The [facility] Comment on above: Performed By: #### C NGA ####[facility] Nxnoczdnya9[address] [place] [address]Dr. Swathi Reis MCV 92.9 fL Normal 81.0-99.0 The [facility] Comment on above: Performed By: #### C NGA ####[facility] Igkiygugsp5566 [place] [phone]. Swathi Reis METAMYELOCYTE # Normal The [facility] Comment on above: Performed By: #### C NGA ####[facility] Ihemabnnrc7464 [place] [phone]. Swathi Reis METAMYELOCYTE % Normal The [facility] Comment on above: Performed By: #### Kenney SYLVESTER ####[facility] Xckebqdget0479 [place] [phone]. Swathi Reis MONOM# 1.88 103/ul Critically high 0.30-0.80 The [facility] Comment on above: Performed By: #### C NGA ####[facility] Uhuvxosrrh8343 [place] [phone]. Swathi Reis MONOM% 9.0 % Normal 1.7-12.0 [facility] Comment on above: Performed By: #### C NGA ####[facility] Uestdpwgfb2301 [place] [phone]. Swathi Reis MPV 10.6 fL Normal 9.5-13.5 The [facility] Comment on above: Performed By: #### C NGA ####[facility] Bvsjzrpbfo0191 [place] [phone]. Swathi Reis MYELOCYTE # Normal [facility] Comment on above: Performed By: #### C NGA ####[facility] Bjwcbexvzc5199 [place], [place] [address]Ff. Swathi Reis MYELOCYTE % Normal The [facility] Comment on above: Performed By: #### C NGA ####[facility] Tccmewtune5655 [place] [phone]. Swathi Reis NRBC Normal The [facility] Comment on above: Performed By: #### C NGA ####[facility] Hyucimxbns2888 [place] [phone]. Swathi Reis PLT 335 103/ul Normal 150-450 The [facility] Comment on above: Performed By: #### C NGA ####[facility] Fydjrstdji9765 [place] [phone]. Swathi Reis RBC 3.52 106/ul Critically low 4.20-5.40 [facility] Comment on above: Performed By: #### C NGA ####[facility] Ssrzvnydca2656 [place] [phone]. Swathi Reis RDW 13.5 % Normal 11.0-15.0 [facility] Comment on above: Performed By: #### C NGA ####[facility] Okurnevlgz2912 [place] [phone]. Swathi Reis SEG # 17.76 103/ul Critically high 1.40-6.50 The [facility] Comment on above: Performed By: #### C NGA ####[facility] Mnukxqdnhx0613 [place] [phone]. Swathi Reis SEG % 85.0 % Critically high 43.0-75.0 The [facility] Comment on above: Performed By: #### C NGA ####[facility] [address] [place], [place] [address]Dr. Swathi Reis WBC 20.9 103/ul Critically high 4.0-11.0 The [facility] Comment on above: Performed By: #### C BCMAN ####[facility] Pflsuurtuc8929 [place], [place] [address]OcOtto Reis CTA CHEST WO W CONon 022 CTA CHEST WO W CON Normal The [facility] CULTURE BLOODon 07-05-2022 Microscopic examination of blood, culture Culture Observations: NO GROWTH AT 5 DAYS. Normal The [facility] Comment on above: Performed By: #### B LDCX2 ####[facility] Dmqrsongcv6605 [place], [place] [address]PoOtto Reis Microscopic examination of blood, culture Culture Observations: NO GROWTH AT 5 DAYS. Normal [facility] Comment on above: Performed By: #### B LDCX1 ####[facility] Ejsgtfpoyo8858 [place], [place] [address]SyOtto Swathi Reis Covid-19 PCR (CVDTB)on 06-23 SARS-CoV-2 (COVID-19) RNA ÓSCAR+probe Ql (Unsp spec) Not detected Normal NOT DETECTED The [facility] Comment on above: Result Comment: When [...] for this test is supported by the Quality Control Coordinator of Health and Human Service's declaration that [...] be used). Performed By: #### C VDTBH ####[facility] Xufndybore3931 [place], [place] [address]Nu. Yitracy Reis D-DIMERon 07-05-2022 D-DIMER 2.17 mg/L FEU Critically high <=0.59 [facility] Comment on above: Performed By: #### P T, DDIM, PTT ####[facility] Epqessxnvt3558 [place] [address]Dr. Inessatracy Reis D-DIMER COMMENTS SEE BELOW Normal [facility] Comment on above: Result Comment: Incr eases [...] Performed By: #### P T, DDIM, PTT ####[facility] Zhdrxzpifv1078 [place] [address]Dr. Swathi Reis LACTATE/LACTIC ACIDon 2021 Lactate [Moles/Vol] 2.5 mmol/L Critically high 0.4-1.9 [facility] Comment on above: Performed By: #### L ACT ####[facility] Zyyyjyzcrx3645 [place] [address]Dr. Swathi Reis Lactate [Moles/Vol] 3.2 mmol/L Critically high 0.4-1.9 [facility] Comment on above: Performed By: #### L ACT ####[facility] Tayxjcvdmn7178 [place] [address]Dr. Swathi Reis POINT OF CARE GLUCOSEon 06-23 Glucose [Mass/Vol] 179 mg/dL Critically high 74-106 T [facility] Comment on above: Performed By: #### P OCGLUC ####[facility] Xqobzhaotn7919 [place] [address]Dr. Swathi Reis PROF 14(COMP METB)on 022 Albumin [Mass/Vol] 3.2 g/dL Critically low 3.4-5.0 Th [facility] Comment on above: Performed By: #### H STROPN, CMP, BNP ####[facility] Wbmjxsduja9616 [place] [address]Dr. Swathi Reis Albumin/Globulin [Mass ratio] 0.8 {ratio} Normal [facility] Comment on above: Performed By: #### H STROPN, CMP, BNP ####[facility] Gaxfiihlvs0112 [place] [address]Dr. Swathi Reis ALP [Catalytic activity/Vol] 98 U/L Normal 46-116 [facility] Comment on above: Performed By: #### H STROPN, CMP, BNP ####[facility] Bxugllenwv5131 [place] [address]Dr. Swathi Reis ALT [Catalytic activity/Vol] 18 U/L Normal 14-59 [facility] Comment on above: Performed By: #### H STROPN, CMP, BNP ####[facility] Zmoexavzle5767 [place] [address]Dr. Swathi Reis Anion gap [Moles/Vol] 11.5 mmol/L Normal [facility] Comment on above: Performed By: #### H STROPN, CMP, BNP ####[facility] Lagyjgvzyg[address] [place], [place] [address]Dr. Swathi Reis AST [Catalytic activity/Vol] 16 U/L Normal 15-37 [facility] Comment on above: Performed By: #### H STROPN, CMP, BNP ####[facility] Svcasiprio9451 [place] [address]Dr. Swathi Reis Bilirubin [Mass/Vol] 0.7 mg/dL Normal 0.2-1.0 [facility] Comment on above: Performed By: #### H STROPN, CMP, BNP ####[facility] Wlnzxhoolj9651 [place] [address]Dr. Swathi Reis Calcium [Mass/Vol] 9.3 mg/dL Normal 8.5-10.1 [facility] Comment on above: Performed By: #### H STROPN, CMP, BNP ####[facility] Xmmdymgaxn[address] [place], [place] [address]Dr. Swathi Reis Chloride [Moles/Vol] 100 mmol/L Normal 98-107 [facility] Comment on above: Performed By: #### H STROPN, CMP, BNP ####[facility] Orktyahcij1853 [place] [address]Dr. Swathi Reis CO2 [Moles/Vol] 29.5 mmol/L Normal 21.0-32.0 [facility] Comment on above: Performed By: #### H STROPN, CMP, BNP ####[facility] Gyklcufysx7729 [place] [address]Dr. Swathi Reis Creatinine [Mass/Vol] 1.66 mg/dL Critically high 0.55-1.02 [facility] Comment on above: Performed By: #### H STROPN, CMP, BNP ####[facility] Bizecyvuba[address] [place], [place] [address]Dr. Swathi Reis EGFR-AF MONTENEGRIN 36 mL/min/1.73m2 Critically low >=60 [facility] Comment on above: Performed By: #### H STROPN, CMP, BNP ####[facility] Ztms[address]rlqw[address] [place], [place] [address]Dr. Swathi Reis EGFR-NON AF MONTENEGRIN 30 mL/min/1.73m2 Critically low >=60 [facility] Comment on above: Performed By: #### H STROPN, CMP, BNP ####[facility] Rvrmteewlx[address] [place], [place] [address]Dr. Swathi Reis Globulin (S) [Mass/Vol] 4.0 g/dL Normal [facility] Comment on above: Performed By: #### H STROPN, CMP, BNP ####[facility] Wlrvqyzevt3633 [place] [address]Dr. Swathi Reis Glucose [Mass/Vol] 247 mg/dL Critically high 74-106 [facility] Comment on above: Performed By: #### H STROPN, CMP, BNP ####[facility] Gciffhudpc7121 [place] [address]Dr. Swathi Reis Potassium [Moles/Vol] 4.0 mmol/L Normal 3.5-5.1 [facility] Comment on above: Performed By: #### H STROPN, CMP, BNP ####[facility] Yivalntghx6162 [place] [address]Dr. Swathi Reis Protein [Mass/Vol] 7.2 g/dL Normal 6.4-8.2 [facility] Comment on above: Performed By: #### H STROPN, CMP, BNP ####[facility] Byfjzhjbns4093 [place] [address]Dr. Swathi Reis Sodium [Moles/Vol] 137 mmol/L Normal 136-145 The [facility] Comment on above: Performed By: #### H STROPN, CMP, BNP ####[facility] Gyyvqzdjul1841 [place] [address]Dr. Swathi Reis Urea nitrogen [Mass/Vol] 22.0 mg/dL Critically high 7.0-18.0 [facility] Comment on above: Performed By: #### H STROPN, CMP, BNP ####[facility] Xeklspcddm[address] [place], [place] [address]Dr. Swathi Reis Urea nitrogen/Creatinine [Mass ratio] 13.3 mg/mg Normal [facility] Comment on above: Performed By: #### H STROPN, CMP, BNP ####[facility] Wifplhgibp4821 [place] [address]Dr. Swathi Reis PROTIMEon 07-05-2022 INR Coag (PPP) [Relative time] 1.10 {INR} Normal The [facility] Comment on above: Performed By: #### P T, DDIM, PTT ####[facility] Pwsatrfudt0548 [place] [address]Dr. Swathi Reis INR GUIDELINES SEE BELOW Normal [facility] Comment on above: Result Comment: HARRIETT RED INR: 2.0 - 3.0 CONDITIONS NOT LISTED BELOW 2.5 - 3.5 FOR PROSTHETIC HEART VALVE REPLACEMENT 2.5 - 3.5 RECURRENT THROMBOSIS Performed By: #### P T, DDIM, PTT ####[facility] Sapcyyikde[address] [place], [place] [address]Dr. Swathi Reis PT Coag (PPP) [Time] 11.8 s Critically high 9.0-11.6 The [facility] Comment on above: Performed By: #### P T, DDIM, PTT ####[facility] Jgysxpfegr2335 [place], [place] [address]Lm. Swathi Reis PTTon 07-05-2022 aPTT Coag (Bld) [Time] 27.2 s Normal 22.3-36.2 Th e [facility] Comment on above: Performed By: #### P T, DDIM, PTT ####[facility] Upbzfexcnn2364 [place], [place] [address]Ay. Swathi Reis TROPONIN, HIGH SENSITIVITYon 07-05-2022 HSTROP 16.2 pg/mL Normal 4.0-51.3 The [facility] Comment on above: Result Comment: CUT- OFF POINTS HAVE BEEN ESTABLISHED BASED ON THE FOURTH UNIVERSAL DEFINITIONS OF MYOCARDIALINFARCTION. THE UPPER REFERENCE LIMIT (URL) OF TROPONIN, DEFINED THE 99TH PERCENTILE OFcTnI DISTRIBUTION IN A REFERENCE POPULATION, HAS BEEN CONFIRMED THE DECISION THRESHOLDFOR MS DIAGNOSIS. Performed By: #### H STROPN, CMP, BNP ####[facility] Jhrkplcgyg6532 [place], [place] [address]Ks. Swathi Reis XR CHEST 1 Von 07-05-2022 XR CHEST 1 V Normal The [facility] MRI WRIST LT WO CONon 2021 MRI WRIST LT WO CON Normal The [facility] XR ANKLE LT MIN 3 Von 2021 XR ANKLE LT MIN 3 V Normal The [facility] XR WRIST LT MIN 3 Von 2021 XR WRIST LT MIN 3 V Normal The [facility] Progress Noteson 05-19-2022 Amr Physician Authentication Interface Message Text EMERGENCY TRIAGE, TREAT AND TRANSPORT (ET3) DOCUMENTATION OF TELEHEALTH VISIT Date / Time: 05/19/2022 / 1130 Name: Andrew Barros : 1945 SSN: (Not on file) EMS Agency: [facility] [x] Verbal consent obtained [] [...] Completed by: Kristian Mcwilliams MD Normal The [employer] [facility] CBC AUTO DIFFon 05-07-2022 BASO # 0.1 103/ul Normal 0.0-0.1 The [facility] Comment on above: Performed By: #### C BC ####[facility] Uwwgkuxols6282 [place], [place] [address]Jc. Swathi Reis Basophils/100 WBC (Bld) 0.5 % Normal 0.2-2.0 The [facility] Comment on above: Performed By: #### C BC ####[facility] Krxwrjxmdg3814 [place], [place] [address]EdOtto Reis EO # 0.1 103/ul Normal 0.0-0.7 The [facility] Comment on above: Performed By: #### C BC ####[facility] Nronukmhro4122 [place] [phone]. Swathi Reis Eosinophils/100 WBC (Bld) 1.1 % Normal 0.9-7.0 [facility] Comment on above: Performed By: #### C BC ####[facility] Mlpjlmgeuk7321 [place] [address]Dr. Swathi Reis Erythrocyte distribution width (RBC) [Ratio] 13.2 % Normal 11.0-15.0 [facility] Comment on above: Performed By: #### C BC ####[facility] Yqgarkecie[address] [place], [place] [address]Dr. Swathi Reis Hematocrit (Bld) [Volume fraction] 40.9 % Normal 36.0-48.0 [facility] Comment on above: Performed By: #### C BC ####[facility] Kcagavpyie[address] [place], [place] [address]Dr. Swathi Reis Hemoglobin (Bld) [Mass/Vol] 12.8 g/dL Normal 12.0-16.0 [facility] Comment on above: Performed By: #### C BC ####[facility] Qivmhuwuxb72[address] [place], [place] [address]Dr. Swathi Reis IG # 0.04 10e3/ul Critically high 0.00-0.03 [facility] Comment on above: Performed By: #### C BC ####[facility] Ehtzadchky[address] [place], [place] [address]Dr. Swathi Reis IG % 0.4 % Normal 0.0-0.5 The [facility] Comment on above: Performed By: #### C BC ####[facility] Ajjkpsyrfk[address] [place], [place] [address]Dr. Swathi Reis LYMPH # 1.4 103/ul Normal 1.2-3.8 The [facility] Comment on above: Performed By: #### C BC ####[facility] Vxmodxqvol9[address] [place], [place] [address]Dr. Swathi Reis Lymphocytes/100 WBC (Bld) 13.2 % Critically low 20.5-60.0 The [facility] Comment on above: Performed By: #### C BC ####[facility] Sduibufski4478 [place] [phone]. Swathi Reis MANUAL DIFF REQ NO Normal The [facility] Comment on above: Performed By: #### C BC ####[facility] Ggnlhpglas4902 [place] [phone]. Swathi Reis MCH (RBC) [Entitic mass] 29.5 pg Normal 26.7-34.0 The [facility] Comment on above: Performed By: #### C BC ####[facility] Ivzolpftgo[address] [place], [place] [address]Dr. Swathi Reis MCHC (RBC) [Mass/Vol] 31.3 g/dL Normal 29.9-35.2 [facility] Comment on above: Performed By: #### C BC ####[facility] Thdbwznrwd0422[address] [place], [place] [address]Dr. Swathi Reis MCV (RBC) [Entitic vol] 94.2 fL Normal 81.0-99.0 [facility] Comment on above: Performed By: #### C BC ####[facility] Gqnfckmlmr8[address] [place], [place] [address]Dr. Inessatracy Chato MONO # 0.9 103/ul Critically high 0.3-0.8 The [facility] Comment on above: Performed By: #### C BC ####[facility] Vyoktgyqhx[address] [place], [place] [address]Dr. Swathi Reis Monocytes/100 WBC (Bld) 8.9 % Normal 1.7-12.0 The [facility] Comment on above: Performed By: #### C BC ####[facility] Duieizstbw5257 [place] [phone]. Swathi Reis NEUT # 7.8 103/ul Critically high 1.4-6.5 The [facility] Comment on above: Performed By: #### C BC ####[facility] Poepconefl[address] [place], [place] [address]Dr. Swathi Reis Neutrophils/100 WBC (Bld) 75.9 % Critically high 43.0-75.0 The [facility] Comment on above: Performed By: #### C BC ####[facility] Oysafppqer3409 [place], [place] [address]Sp. Swathi Reis Platelet mean volume (Bld) [Entitic vol] 10.7 fL Normal 9.5-13.5 [facility] Comment on above: Performed By: #### C BC ####[facility] Covngpnxcc3593 [place], [place] [address]Sx. Swathi Reis PLT 257 103/ul Normal 150-450 The [facility] Comment on above: Performed By: #### C BC ####[facility] Toyhwdgmab2729 [place], [place] [address]Qd. Swathi Reis RBC 4.34 106/ul Normal 4.20-5.40 The [facility] Comment on above: Performed By: #### C BC ####[facility] Etvigqogzc1494 [place], [place] [address]Xw. Swathi Reis WBC 10.2 103/ul Normal 4.0-11.0 The [facility] Comment on above: Performed By: #### C BC ####[facility] Bcxfikhnxv3501 [place], [place] [address]Kc. Swathi Reis Covid-19 PCR (CVDTB)on 04-23 SARS-CoV-2 (COVID-19) RNA ÓSCAR+probe Ql (Unsp spec) Not detected Normal NOT DETECTED The [facility] Comment on above: Result Comment: This test is not yet approved or cleared by the [place] FDA. When there are no FDA-approved or cleared tests available, and other criteria are met, FDA can make tests available under an emergency access mechanism called an Emergency Use Authorization (EUA). The EUA for this test is supported by the [place] of Health and Human Service's (HHS's) declaration [...] symptomsconsistent with SARS-CoV-2. Performed By: #### C VDTB ####[facility] Hfdlzrjavr7764 [place] [address]Dr. Swathi Reis PROF CHEM 8 (BAS METB)on Anion gap [Moles/Vol] 12.0 mmol/L Normal [facility] Comment on above: Performed By: #### B MP ####[facility] Ttwxoseucm1576 [place] [address]Dr. Swathi Reis Calcium [Mass/Vol] 9.7 mg/dL Normal 8.5-10.1 [facility] Comment on above: Performed By: #### B MP ####[facility] [address]ekvpuwfcs[address] [place], [place] [address]Dr. Swathi Reis Chloride [Moles/Vol] 102 mmol/L Normal 98-107 [facility] Comment on above: Performed By: #### B MP ####[facility] Mdznwurdgb[address] [place], [place] [address]Dr. Swathi Reis CO2 [Moles/Vol] 31.8 mmol/L Normal 21.0-32.0 [facility] Comment on above: Performed By: #### B MP ####[facility] Quvhpcprwj8245 [place] [address]Dr. Swathi Reis Creatinine [Mass/Vol] 1.22 mg/dL Critically high 0.55-1.02 [facility] Comment on above: Performed By: #### B MP ####[facility] Bnnusacbeq7476 [place] [address]Dr. Swathi Reis EGFR-AF MONTENEGRIN 52 mL/min/1.73m2 Critically low >=60 [facility] Comment on above: Performed By: #### B MP ####[facility] Icaqzdbprb0909 [place] [address]Dr. Swathi Reis EGFR-NON AF MONTENEGRIN 43 mL/min/1.73m2 Critically low >=60 [facility] Comment on above: Performed By: #### B MP ####[facility] Mwddjsfwff4016 [place] [phone]. Swathi Reis Glucose [Mass/Vol] 249 mg/dL Critically high 74-106 [facility] Comment on above: Performed By: #### B MP ####[facility] Vkidefaswu0664 [place] [phone]. Swathi Reis Potassium [Moles/Vol] 3.8 mmol/L Normal 3.5-5.1 [facility] Comment on above: Performed By: #### B MP ####[facility] Jpptsvmyzl1923 [place] [address]Dr. Swathi Reis Sodium [Moles/Vol] 142 mmol/L Normal 136-145 [facility] Comment on above: Performed By: #### B MP ####[facility] Tumjlymidw[address] [place], [place] [address]Dr. Swathi Reis Urea nitrogen [Mass/Vol] 21.0 mg/dL Critically high 7.0-18.0 [facility] Comment on above: Performed By: #### B MP ####[facility] Yvgnxkagcv8012 [place] [address]Dr. Swathi Reis Urea nitrogen/Creatinine [Mass ratio] 17.2 mg/mg Normal [facility] Comment on above: Performed By: #### B MP ####[facility] Mumqdfwapc4037 [place] [address]Dr. Swathi Chato CBC AUTO DIFFon 01-12-2022 BASO # 0.1 103/ul Normal 0.0-0.1 [facility] Comment on above: Performed By: #### C BC ####[facility] Ynnlmonnqs9631 [place] [address]Dr. Swathi Chato Basophils/100 WBC (Bld) 0.7 % Normal 0.2-2.0 [facility] Comment on above: Performed By: #### C BC ####[facility] Cfzxebkbfh6079 [place] [address]Dr. Swathi Reis EO # 0.3 103/ul Normal 0.0-0.7 [facility] Comment on above: Performed By: #### C BC ####[facility] Gokdgzwdsn9677 [place] [phone]. Swathi Reis Eosinophils/100 WBC (Bld) 2.9 % Normal 0.9-7.0 The [facility] Comment on above: Performed By: #### C BC ####[facility] Suiyxlseux0866 [place] [address]Dr. Swathi Reis Erythrocyte distribution width (RBC) [Ratio] 13.2 % Normal 11.0-15.0 The [facility] Comment on above: Performed By: #### C BC ####[facility] Rkrijeaolx[address] [place], [place] [address]Dr. Swathi Reis Hematocrit (Bld) [Volume fraction] 35.9 % Critically low 36.0-48.0 The [facility] Comment on above: Performed By: #### C BC ####[facility] Freubzbrcw[address] [place], [place] [address]Dr. Swathi Reis Hemoglobin (Bld) [Mass/Vol] 11.6 g/dL Critically low 12.0-16.0 [facility] Comment on above: Performed By: #### C BC ####[facility] Rwbehriihx[address] [place], [place] [address]Dr. Swathi Reis IG # 0.03 10e3/ul Normal 0.00-0.03 The [facility] Comment on above: Performed By: #### C BC ####[facility] Inhqajrojh[address] [place], [place] [address]Dr. Swathi Reis IG % 0.4 % Normal 0.0-0.5 The [facility] Comment on above: Performed By: #### C BC ####[facility] Ikwiuxnydd94[address] [place], [place] [address]Dr. Swathi Reis LYMPH # 1.5 103/ul Normal 1.2-3.8 The [facility] Comment on above: Performed By: #### C BC ####[facility] Iqxfhvbtyo3[address] [place], [place] [address]Dr. Swathi Reis Lymphocytes/100 WBC (Bld) 17.6 % Critically low 20.5-60.0 The [facility] Comment on above: Performed By: #### C BC ####[facility] Ctbzlsvrex2469 [place] [phone]. Swathi Reis MANUAL DIFF REQ NO Normal [facility] Comment on above: Performed By: #### C BC ####[facility] [address] [place] [id number]. Swathi Reis MCH (RBC) [Entitic mass] 30.0 pg Normal 26.7-34.0 [facility] Comment on above: Performed By: #### C BC ####[facility] Bofehrzbuo[address] [place] [phone]. Swathi Reis MCHC (RBC) [Mass/Vol] 32.3 g/dL Normal 29.9-35.2 [facility] Comment on above: Performed By: #### C BC ####[facility] Yfcjetvugm[address] [place] [address]Dr. Swathi Reis MCV (RBC) [Entitic vol] 92.8 fL Normal 81.0-99.0 [facility] Comment on above: Performed By: #### C BC ####[facility] [address] [place], [place] [phone]. Swathi Reis MONO # 1.1 103/ul Critically high 0.3-0.8 [facility] Comment on above: Performed By: #### C BC ####[facility] Fydkpyjrpm[address] [place], [place] [address]Dr. Swathi Reis Monocytes/100 WBC (Bld) 12.3 % Critically high 1.7-12.0 [facility] Comment on above: Performed By: #### C BC ####[facility] Xntizftckz[address] [place] [address]Dr. Swathi Reis NEUT # 5.7 103/ul Normal 1.4-6.5 [facility] Comment on above: Performed By: #### C BC ####[facility] [address]qjxgdq[address] [place], [place] [phone]. Swathi Reis Neutrophils/100 WBC (Bld) 66.1 % Normal 43.0-75.0 [facility] Comment on above: Performed By: #### C BC ####[facility] Ktbcumddui52[address] [place] [phone]. Inessatracy Reis Platelet mean volume (Bld) [Entitic vol] 10.9 fL Normal 9.5-13.5 [facility] Comment on above: Performed By: #### C BC ####[facility] Dupntmbfyb43[address] [place] [phone]. Inessatracy Chato PLT 246 103/ul Normal 150-450 [facility] Comment on above: Performed By: #### C BC ####[facility] Qndylbdftq7274 [place] [phone]. Inessatrayc Chato RBC 3.87 106/ul Critically low 4.20-5.40 [facility] Comment on above: Performed By: #### C BC ####[facility] Ihivknheaj[address] [place] [address]Dr. Swathi Reis WBC 8.6 103/ul Normal 4.0-11.0 [facility] Comment on above: Performed By: #### C BC ####[facility] Ezwwahgmuw76[address] [place] [phone]. Swathi Reis CRPon 01-12-2022 CRP [Mass/Vol] mg/L Normal <=1.0 [facility] Comment on above: Performed By: #### C MP, CRP ####[facility] Vpcspaewzs54[address] [place] [phone]. Swathi Reis POINT OF CARE GLUCOSEon 12-23 Glucose [Mass/Vol] 95 mg/dL Normal 74-106 [facility] Comment on above: Performed By: #### P OCGLUC ####[facility] Xokjxmotgp340[address] [place] [phone]. Swathi Reis PROF 14(COMP METB)on 022 Albumin [Mass/Vol] 2.9 g/dL Critically low 3.4-5.0 [facility] Comment on above: Performed By: #### C MP, CRP ####[facility] Jk[address]igo[address] [place] [address]Dr. Swathi Reis Albumin/Globulin [Mass ratio] 0.8 {ratio} Normal [facility] Comment on above: Performed By: #### C MP, CRP ####[facility] Mkbyupthmi7351 [place] [phone]. Swathi Reis ALP [Catalytic activity/Vol] 91 U/L Normal 46-116 [facility] Comment on above: Performed By: #### C MP, CRP ####[facility] Qkgnhglmtp4114 [place] [phone]. Swathi Reis ALT [Catalytic activity/Vol] 18 U/L Normal 14-59 [facility] Comment on above: Performed By: #### C MP, CRP ####[facility] Epsqcjkgjy6634 [place] [address]Dr. Swathi Reis Anion gap [Moles/Vol] 9.1 mmol/L Normal [facility] Comment on above: Performed By: #### C MP, CRP ####[facility] Zamcytnnkr[address] [place], [place] [address]Dr. Swathi Reis AST [Catalytic activity/Vol] 17 U/L Normal 15-37 [facility] Comment on above: Performed By: #### C MP, CRP ####[facility] Ggtlqvmdih32[address] [place], [place] [address]Dr. Swathi Reis Bilirubin [Mass/Vol] 0.6 mg/dL Normal 0.2-1.3 [facility] Comment on above: Performed By: #### C MP, CRP ####[facility] Hrusjmhiww2115 [place] [phone]. Swathi Reis Calcium [Mass/Vol] 8.6 mg/dL Normal 8.5-10.1 [facility] Comment on above: Performed By: #### C MP, CRP ####[facility] Bdaiwoeqym30[address] [place] [address]Dr. Swathi Reis Chloride [Moles/Vol] 104 mmol/L Normal 98-107 [facility] Comment on above: Performed By: #### C MP, CRP ####[facility] Jsseehqzcb8142 [place] [address]Dr. Swathi Reis CO2 [Moles/Vol] 32.1 mmol/L Critically high 22.0-30.0 [facility] Comment on above: Performed By: #### C MP, CRP ####[facility] Bxhpbdcwvb264[address] [place] [address]Dr. Swathi Reis Creatinine [Mass/Vol] 0.96 mg/dL Normal 0.52-1.04 [facility] Comment on above: Performed By: #### C MP, CRP ####[facility] Jyjmcjnjjl500[address] [place] [address]Dr. Swathi Reis EGFR-AF MONTENEGRIN >60 Normal >=60 [facility] Comment on above: Performed By: #### C MP, CRP ####[facility] Urvkhcbvna[address] [place], [place] [address]Dr. Swathi Reis EGFR-NON AF MONTENEGRIN 56 mL/min/1.73m2 Critically low >=60 [facility] Comment on above: Performed By: #### C MP, CRP ####[facility] Ksjavpdifb4[address] [place] [address]Dr. Swathi Reis Globulin (S) [Mass/Vol] 3.5 g/dL Normal [facility] Comment on above: Performed By: #### C MP, CRP ####[facility] Rgflutfvdg7[address] [place], [place] [address]Dr. Swathi Reis Glucose [Mass/Vol] 114 mg/dL Critically high 74-106 [facility] Comment on above: Performed By: #### C MP, CRP ####[facility] Fczxxjiuxy9091 [place] [address]Dr. Swathi Reis Potassium [Moles/Vol] 3.2 mmol/L Critically low 3.4-5.0 [facility] Comment on above: Performed By: #### C MP, CRP ####[facility] Xtqegprazm11[address] [place] [address]Dr. Swathi Reis Protein [Mass/Vol] 6.4 g/dL Normal 6.1-8.2 [facility] Comment on above: Performed By: #### C MP, CRP ####[facility] Tregvwkapl[address] [place] [address]Dr. Inessatracy Reis Sodium [Moles/Vol] 142 mmol/L Normal 137-145 [facility] Comment on above: Performed By: #### C MP, CRP ####[facility] Zqnrgnjhnr046[address] [place], [place] [address]Dr. Swathi Chato Urea nitrogen [Mass/Vol] 20.0 mg/dL Critically high 7.0-18.0 [facility] Comment on above: Performed By: #### C MP, CRP ####[facility] Crklgiuoki3018[address] [place], [place] [address]Dr. Swathi Reis Urea nitrogen/Creatinine [Mass ratio] 20.8 mg/mg Normal [facility] Comment on above: Performed By: #### C MP, CRP ####[facility] Umiuevhydu56[address] [place], [place] [address]Dr. Swathi Reis T3, TOTAL (TRIIODOTHYRONINE) on 01-12-2022 T3, TOTAL 79 ng/dL Normal 71-180 [facility] Comment on above: Performed By: #### T 3TOTAL ####[facility] Ydsfoxppkv8[address] [place], [place] [address]Dr. Inessatracy Reis CBC AUTO DIFFon 01-11-2022 BASO # 0.1 103/ul Normal 0.0-0.1 [facility] Comment on above: Performed By: #### C BC ####[facility] Phigpdyhvn8935[address] [place], [place] [address]Dr. Swathi Reis Basophils/100 WBC (Bld) 0.5 % Normal 0.2-2.0 [facility] Comment on above: Performed By: #### C BC ####[facility] Xrdkklxdwy6[address] [place], [place] [address]Dr. Swathi Reis EO # 0.1 103/ul Normal 0.0-0.7 [facility] Comment on above: Performed By: #### C BC ####[facility] Jceajzaryt78[address] [place], [place] [address]Dr. Swathi Reis Eosinophils/100 WBC (Bld) 1.1 % Normal 0.9-7.0 [facility] Comment on above: Performed By: #### C BC ####[facility] Nzollaywkh59[address] [place] [address]Dr. Swathi Reis Erythrocyte distribution width (RBC) [Ratio] 13.1 % Normal 11.0-15.0 [facility] Comment on above: Performed By: #### C BC ####[facility] Qffuuaddmc8376 [place] [address]Dr. Swathi Reis Hematocrit (Bld) [Volume fraction] 39.1 % Normal 36.0-48.0 [facility] Comment on above: Performed By: #### C BC ####[facility] Eaoaxgjdhm[address] [place], [place] [address]Dr. Swathi Reis Hemoglobin (Bld) [Mass/Vol] 12.7 g/dL Normal 12.0-16.0 [facility] Comment on above: Performed By: #### C BC ####[facility] Ubsmbmnmlp[address] [place], [place] [address]Dr. Swathi Reis IG # 0.04 10e3/ul Critically high 0.00-0.03 [facility] Comment on above: Performed By: #### C BC ####[facility] Edvibpbtsa[address] [place], [place] [address]Dr. Swathi Reis IG % 0.4 % Normal 0.0-0.5 [facility] Comment on above: Performed By: #### C BC ####[facility] Xkscutyrlc[address] [place], [place] [address]Dr. Swathi Reis LYMPH # 1.4 103/ul Normal 1.2-3.8 [facility] Comment on above: Performed By: #### C BC ####[facility] Rokuzvfsqx[address] [place], [place] [address]Dr. Swathi Reis Lymphocytes/100 WBC (Bld) 12.4 % Critically low 20.5-60.0 [facility] Comment on above: Performed By: #### C BC ####[facility] Rqfwikhaup8[address] [place], [place] [address]Dr. Swathi Reis MANUAL DIFF REQ NO Normal [facility] Comment on above: Performed By: #### C BC ####[facility] Evmuaepzex70[address] [place] [phone]. Swathi Chato MCH (RBC) [Entitic mass] 30.0 pg Normal 26.7-34.0 [facility] Comment on above: Performed By: #### C BC ####[facility] Bkiddkbjrr53[address] [place] [phone]. Swathi Chato MCHC (RBC) [Mass/Vol] 32.5 g/dL Normal 29.9-35.2 [facility] Comment on above: Performed By: #### C BC ####[facility] Nxafbnnyra7171 [place] [address]Dr. Swathi Reis MCV (RBC) [Entitic vol] 92.4 fL Normal 81.0-99.0 [facility] Comment on above: Performed By: #### C BC ####[facility] Gzqzpmwaan[address] [place], [place] [address]Dr. Swathi Reis MONO # 1.1 103/ul Critically high 0.3-0.8 The [facility] Comment on above: Performed By: #### C BC ####[facility] Sokcvgvrch[address] [place], [place] [address]Dr. Swathi Reis Monocytes/100 WBC (Bld) 10.1 % Normal 1.7-12.0 [facility] Comment on above: Performed By: #### C BC ####[facility] Pqtmznurwp[address] [place], [place] [address]Dr. Swathi Reis NEUT # 8.3 103/ul Critically high 1.4-6.5 [facility] Comment on above: Performed By: #### C BC ####[facility] [address]qpqeckcqj[address] [place], [place] [phone]. Swathi Reis Neutrophils/100 WBC (Bld) 75.5 % Critically high 43.0-75.0 [facility] Comment on above: Performed By: #### C BC ####[facility] Popdrisimr44[address] [place] [address]Dr. Swathi Reis Platelet mean volume (Bld) [Entitic vol] 11.3 fL Normal 9.5-13.5 [facility] Comment on above: Performed By: #### C BC ####[facility] Xmnawglwmh6964 [place], [place] [address]Dk. Swathi Reis PLT 292 103/ul Normal 150-450 [facility] Comment on above: Performed By: #### C BC ####[facility] Gbryxearzz9216 [place], [place] [address]Nu. Swathi Reis RBC 4.23 106/ul Normal 4.20-5.40 [facility] Comment on above: Performed By: #### C BC ####[facility] Uwarvcxebb9055 [place], [place] [address]Vt. Swathi Reis WBC 11.0 103/ul Normal 4.0-11.0 [facility] Comment on above: Performed By: #### C BC ####[facility] Myipmsmijt4086 [place], [place] [address]Ct. Swathi Reis CT HEAD WO CONon 01-11-2022 CT HEAD WO CON Normal [facility] CULTURE URINEon 01-11-2022 CULTURE URINE Culture Observations : LIGHT GROWTH OF MIXED GENITAL ELEONORA. NO POTENTIAL PATHOGENS SEEN. Normal [facility] Comment on above: Performed By: #### U RCX ####[facility] Hzhgizwrmn1165 [place], [place] [address]Nf. Swathi Reis Covid-19 PCR (CVDTBH)on 12-23 SARS-CoV-2 (COVID-19) RNA ÓSCAR+probe Ql (Unsp spec) Not detected Normal NOT DETECTED [facility] Comment on above: Result Comment: When [...] for this test is supported by the [place] of Health and Human Service's declaration that [...] be used). Performed By: #### C VDTB ####[facility] Mijzgomuji[address] [place], [place] [address]Dr. Swathi Reis EEGon 01-11-2022 EEG Normal [facility] ER URINE PROFILEon 2 Bilirubin Ql (U) Negative Normal NEGATIVE The [facility] Comment on above: Performed By: #### E RUR ####[facility] Gelnjspaxs6325[address] [place], [place] [address]Dr. Inessatracy Reis Clarity (U) CLEAR Normal CLEAR [facility] Comment on above: Performed By: #### E RUR ####[facility] Qttihrnmkn8617[address] [place], [place] [address]Dr. Swathi Reis Color (U) LT. YELLOW Normal YELLOW [facility] Comment on above: Performed By: #### E RUR ####[facility] Ddktsixnnp[address] [place], [place] [address]Dr. Swathi Reis ERUAHD A micrscopic examina tion will be performed if indicated. Normal [facility] Comment on above: Performed By: #### E RUR ####[facility] Fktzfbywjx[address] [place], [place] [address]Dr. Swathi Reis Glucose Ql (U) Negative Normal NEGATIVE [facility] Comment on above: Performed By: #### E RUR ####[facility] Idohsnphfw4[address] [place], [place] [address]Dr. Swathi Reis Hemoglobin Ql (U) Negative Normal NEGATIVE The [facility] Comment on above: Performed By: #### E RUR ####[facility] Xvmyaefbys6833[address] [place], [place] [address]Dr. Swathi Reis Ketones Ql (U) Negative Normal NEGATIVE [facility] Comment on above: Performed By: #### E RUR ####[facility] Fdddnxjkss3304[address] [place], [place] [address]Dr. Swathi Chato LEUKOCYTES Negative Normal NEGATIVE [facility] Comment on above: Performed By: #### E RUR ####[facility] Mfjdljorne5204 [place] [address]Dr. Swathi Reis Nitrite Ql (U) Negative Normal NEGATIVE [facility] Comment on above: Performed By: #### E RUR ####[facility] Htbzsdtiya5023 [place] [address]Dr. Swathi Chato pH (U) 6.0 [pH] Normal 5-9 [facility] Comment on above: Performed By: #### E RUR ####[facility] Wbqhqifgna4[address] [place], [place] [address]Dr. Swathi Chato SPEC GRAVITY 1.010 Normal 1.005-<=1.0 25 [facility] Comment on above: Performed By: #### E RUR ####[facility] Ruwzwlbghq[address] [place], [place] [address]Dr. Inessatracy Chato UA PROTEIN Negative Normal NEGATIVE/ TRACE [facility] Comment on above: Performed By: #### E RUR ####[facility] Happmhkppb6[address] [place], [place] [address]Dr. Swathi Chato UR MICRO IND NOT INDICATED Normal [facility] Comment on above: Performed By: #### E RUR ####[facility] Rtzwstlrjp0994[address] [place], [place] [address]Dr. Inessatracy Chato Urobilinogen Qn (U) 0.2 {Sánchez'U}/dL Normal 0.2 - 1. 0 [facility] Comment on above: Performed By: #### E RUR ####[facility] Yvornhmrnb[address] [place], [place] [address]Dr. Inessatracy Chato LACTATE/LACTIC ACIDon 2021 Lactate [Moles/Vol] 0.9 mmol/L Normal 0.7-2.0 [facility] Comment on above: Performed By: #### L ACT ####[facility] Zigznwrwny5[address] [place], [place] [address]Dr. Swathi Reis Lactate [Moles/Vol] 0.9 mmol/L Normal 0.7-2.0 [facility] Comment on above: Performed By: #### L ACT ####[facility] Cuyrrqkfiv52[address] [place] [address]Dr. Swathi Reis POINT OF CARE GLUCOSEon 12-23 Glucose [Mass/Vol] 175 mg/dL Critically high 74-106 [facility] Comment on above: Performed By: #### P OCGLUC ####[facility] Okrtwmqdyu25[address] [place] [address]Dr. Swathi Reis Glucose [Mass/Vol] 116 mg/dL Critically high 74-106 [facility] Comment on above: Performed By: #### P OCGLUC ####[facility] Xcbruqpnne0413 [place] [address]Dr. Swathi Reis PROF 14(COMP METB)on 022 Albumin [Mass/Vol] 3.3 g/dL Critically low 3.4-5.0 [facility] Comment on above: Performed By: #### H RAFFI, CMP ####[facility] Eyuswdlfqt6[address] [place], [place] [address]Dr. Swathi Reis Albumin/Globulin [Mass ratio] 0.8 {ratio} Normal [facility] Comment on above: Performed By: #### H RAFFI, CMP ####[facility] Tljgouyrhd8434 [place] [address]Dr. Swathi Reis ALP [Catalytic activity/Vol] 110 U/L Normal 46-116 [facility] Comment on above: Performed By: #### H RAFFI, CMP ####[facility] Yxlimqgwjx0707 [place] [address]Dr. Swathi Reis ALT [Catalytic activity/Vol] 20 U/L Normal 14-59 [facility] Comment on above: Performed By: #### H RAFFI, CMP ####[facility] Bzbbrliowo5717 [place] [address]Dr. Swathi Reis Anion gap [Moles/Vol] 15.9 mmol/L Normal [facility] Comment on above: Performed By: #### H RAFFI, CMP ####[facility] Vbcdbkohou3885 [place] [address]Dr. Swathi Reis AST [Catalytic activity/Vol] 24 U/L Normal 15-37 [facility] Comment on above: Performed By: #### H RAFFI, CMP ####[facility] Ykncegfqjb8[address] [place], [place] [address]Dr. Swathi Reis Bilirubin [Mass/Vol] 0.5 mg/dL Normal 0.2-1.3 [facility] Comment on above: Performed By: #### H RAFFI, CMP ####[facility] Twfntsrpel20[address] [place], [place] [address]Dr. Swathi Reis Calcium [Mass/Vol] 9.5 mg/dL Normal 8.5-10.1 [facility] Comment on above: Performed By: #### H RAFFI, CMP ####[facility] Vbwgezcqfj28[address] [place], [place] [address]Dr. Swathi Reis Chloride [Moles/Vol] 100 mmol/L Normal 98-107 [facility] Comment on above: Performed By: #### H RAFFI, CMP ####[facility] Ddvebsuxmx166[address] [place], [place] [address]Dr. Swathi Reis CO2 [Moles/Vol] 27.8 mmol/L Normal 22.0-30.0 The [facility] Comment on above: Performed By: #### H RAFFI, CMP ####[facility] Qallbudymw[address] [place], [place] [address]Dr. Swathi Reis Creatinine [Mass/Vol] 1.21 mg/dL Critically high 0.52-1.04 [facility] Comment on above: Performed By: #### H RAFFI, CMP ####[facility] Zfefnbgjei[address] [place], [place] [address]Dr. Swathi Reis EGFR-AF MONTENEGRIN 52 mL/min/1.73m2 Critically low >=60 [facility] Comment on above: Performed By: #### H RAFFI, CMP ####[facility] Rfirsewrhk[address] [place], [place] [address]Dr. Swathi Reis EGFR-NON AF MONTENEGRIN 43 mL/min/1.73m2 Critically low >=60 [facility] Comment on above: Performed By: #### H STROPN, CMP ####[facility] Grffbasiwm8086 [place] [address]Dr. Swathi Reis Globulin (S) [Mass/Vol] 4.1 g/dL Normal [facility] Comment on above: Performed By: #### H STROPN, CMP ####[facility] Bvhkjwmrow3284 [place] [address]Dr. Swathi Reis Glucose [Mass/Vol] 195 mg/dL Critically high 74-106 [facility] Comment on above: Performed By: #### H STROPN, CMP ####[facility] Lpdybjzuzw9993 [place] [address]Dr. Swathi Reis Potassium [Moles/Vol] 3.7 mmol/L Normal 3.4-5.0 [facility] Comment on above: Performed By: #### H STROPN, CMP ####[facility] Dvrpwmwazp[address] [place], [place] [address]Dr. Swathi Reis Protein [Mass/Vol] 7.4 g/dL Normal 6.1-8.2 [facility] Comment on above: Performed By: #### H STROPN, CMP ####[facility] Ddtwmjctfi9850[address] [place], [place] [address]Dr. Swathi Reis Sodium [Moles/Vol] 140 mmol/L Normal 137-145 [facility] Comment on above: Performed By: #### H STROPN, CMP ####[facility] Czowjyztza60[address] [place], [place] [address]Dr. Swathi Reis Urea nitrogen [Mass/Vol] 22.0 mg/dL Critically high 7.0-18.0 [facility] Comment on above: Performed By: #### H STROPN, CMP ####[facility] Bxbathlsxg[address] [place], [place] [address]Dr. Swathi Reis Urea nitrogen/Creatinine [Mass ratio] 18.2 mg/mg Normal [facility] Comment on above: Performed By: #### H STROPN, CMP ####[facility] Zmexknedrz[address] [place], [place] [address]Dr. Swathi Chato T4on 01-11-2022 T4 [Mass/Vol] 9.10 ug/dL Normal 5.53-11.00 [facility] Comment on above: Performed By: #### T SH, T4 ####[facility] Grsoedbywo40[address] [place] [address]Dr. Swathi Reis TROPONIN, HIGH SENSITIVITYon 01-11-2022 HSTROP 13.7 pg/mL Normal 4.0-35.5 [facility] Comment on above: Result Comment: CUT- OFF POINTS HAVE BEEN ESTABLISHED BASED ON THE FOURTH UNIVERSAL DEFINITIONS OF MYOCARDIALINFARCTION. THE UPPER REFERENCE LIMIT (URL) OF TROPONIN, DEFINED THE 99TH PERCENTILE OFcTnI DISTRIBUTION IN A REFERENCE POPULATION, HAS BEEN CONFIRMED THE DECISION THRESHOLDFOR MS DIAGNOSIS. Performed By: #### H STROPN, CMP ####[facility] Kbrltmmifx[address] [place], [place] [address]Dr. Swathi Chato TSHon 01-11-2022 TSH 2.618 uIU/mL Normal 0.470-4.680 [facility] Comment on above: Performed By: #### T SH, T4 ####[facility] Otcqztkklo50[address] [place], [place] [address]Dr. Swathi Reis TSH RANGE SEE BELOW Normal [facility] Comment on above: Result Comment: <0.3 4 UIU/ml HYPERTHYROID 0.34-5.60 UIU/ml EUTHYROID >5.60 UIU/ml HYPOTHYROID Performed By: #### T SH, T4 ####[facility] Lrrpzayzvv[address] [place], [place] [address]Dr. Swathi Chato CBC AUTO DIFFon 01-09-2022 BASO # 0.1 103/ul Normal 0.0-0.1 [facility] Comment on above: Performed By: #### C BC ####[facility] Iebokuhvaz7035[address] [place], [place] [address]Dr. Swathi Reis Basophils/100 WBC (Bld) 0.6 % Normal 0.2-2.0 [facility] Comment on above: Performed By: #### C BC ####[facility] Ovmildfqvn[address] [place], [place] [address]Dr. Swathi Reis EO # 0.2 103/ul Normal 0.0-0.7 [facility] Comment on above: Performed By: #### C BC ####[facility] Bqymsivrnb[address] [place], [place] [address]Dr. Swathi Chato Eosinophils/100 WBC (Bld) 2.7 % Normal 0.9-7.0 [facility] Comment on above: Performed By: #### C BC ####[facility] Vnrvffacxh[address] [place], [place] [address]Dr. Swathi Chato Erythrocyte distribution width (RBC) [Ratio] 13.2 % Normal 11.0-15.0 [facility] Comment on above: Performed By: #### C BC ####[facility] Jyejmdhwfg[address] [place], [place] [address]Dr. Inessatracy Reis Hematocrit (Bld) [Volume fraction] 39.7 % Normal 36.0-48.0 [facility] Comment on above: Performed By: #### C BC ####[facility] Uxbllpeknu[address] [place], [place] [address]Dr. Swathi Chato Hemoglobin (Bld) [Mass/Vol] 12.7 g/dL Normal 12.0-16.0 [facility] Comment on above: Performed By: #### C BC ####[facility] [address]icmnutqz[address] [place], [place] [address]Dr. Swathi Reis IG # 0.04 10e3/ul Critically high 0.00-0.03 The [facility] Comment on above: Performed By: #### C BC ####[facility] [address] [place], [place] [address]Dr. Swathi Reis IG % 0.4 % Normal 0.0-0.5 The [facility] Comment on above: Performed By: #### C BC ####[facility] Razdraones[address] [place], [place] [address]DrOtto Reis LYMPH # 1.4 103/ul Normal 1.2-3.8 The [facility] Comment on above: Performed By: #### C BC ####[facility] Ckxfjylipy[address] [place], [place] [address]Dr. Swathi Reis Lymphocytes/100 WBC (Bld) 15.9 % Critically low 20.5-60.0 The [facility] Comment on above: Performed By: #### C BC ####[facility] [address] [place] [address]DrOtto Reis MANUAL DIFF REQ NO Normal The [facility] Comment on above: Performed By: #### C BC ####[facility] Megyquzvic[address] [place] [address]Dr. Swathi Reis MCH (RBC) [Entitic mass] 30.0 pg Normal 26.7-34.0 The [facility] Comment on above: Performed By: #### C BC ####[facility] Dmzwnrbep[address] [place], [place] [address]Dr. Swathi Reis MCHC (RBC) [Mass/Vol] 32.0 g/dL Normal 29.9-35.2 The [facility] Comment on above: Performed By: #### C BC ####[facility] [address]unk[address]sv[address] [place], [place] [address]Dr. Swathi Reis MCV (RBC) [Entitic vol] 93.9 fL Normal 81.0-99.0 The [facility] Comment on above: Performed By: #### C BC ####[facility] Cfomlvrk[address] [place], [place] [address]Dr. Swathi Reis MONO # 0.9 103/ul Critically high 0.3-0.8 The [facility] Comment on above: Performed By: #### C BC ####[facility] Luq[address] [place], [place] [address]Dr. Swathi Reis Monocytes/100 WBC (Bld) 9.7 % Normal 1.7-12.0 The [facility] Comment on above: Performed By: #### C BC ####[facility] W[address]uy[address]oy[address] [place], [place] [address]DrOtto Reis NEUT # 6.3 103/ul Normal 1.4-6.5 The [facility] Comment on above: Performed By: #### C BC ####[facility] [address] [place], [place] [address]DrOtto Reis Neutrophils/100 WBC (Bld) 70.7 % Normal 43.0-75.0 [facility] Comment on above: Performed By: #### C BC ####[facility] [address]cqsrly[address] [place] [address]Dr. Swathi Reis Platelet mean volume (Bld) [Entitic vol] 10.7 fL Normal 9.5-13.5 [facility] Comment on above: Performed By: #### C BC ####[facility] Ybmsudslql[address] [place] [address]Dr. Swathi Reis PLT 269 103/ul Normal 150-450 The [facility] Comment on above: Performed By: #### C BC ####[facility] Djhojxtzpz[address] [place] [address]Dr. Swathi Reis RBC 4.23 106/ul Normal 4.20-5.40 [facility] Comment on above: Performed By: #### C BC ####[facility] Vyrt[address]mqyr[address] [place] [address]Dr. Swathi Reis WBC 8.9 103/ul Normal 4.0-11.0 [facility] Comment on above: Performed By: #### C BC ####[facility] Lqbymsdtuh6236 [place] [address]Dr. Swathi Reis FREE T3on 01-09-2022 FREE T3 2.19 pg/mlL Critically low 2.77-5.27 [facility] Comment on above: Performed By: #### T SH, T4, FT3, LIPID, CMP ####[facility] C[address]afkwjilj[address] [place] [address]Dr. Swathi Reis GLYCOHEMOGLOBIN A1Con 2021 ADA RECOMMENDATION ADA THERAPEUTIC TARG ET 6.0 - 7.0 ACTION SUGGESTED > 7.0 Normal [facility] Comment on above: Performed By: #### A 1C ####[facility] Qxeiwvraas[address] [place] [address]Dr. Swathi Reis Glucose [Mass/Vol] 137 mg/dL Normal [facility] Comment on above: Performed By: #### A 1C ####[facility] Xlkpudxxsc34[address] [place] [id number]. Swathi Reis HbA1c (Bld) [Mass fraction] 6.4 % Critically high <=6.0 [facility] Comment on above: Performed By: #### A 1C ####[facility] Msm[address]ymq[address] [place] [id number]. Swathi Reis LIPID PROFILEon 01-09-2022 CHOL-HDL RATIO NORM SEE BELOW Normal [facility] Comment on above: Result Comment: 3.3 - 4.4 LOW RISK 4.4 - 7.1 AVERAGE RISK 7.1 - 11.0 MODERATE RISK >11.0 HIGH RISK Performed By: #### T SH, T4, FT3, LIPID, CMP ####[facility] [address]nmbvcab[address] [place] [address]Dr. Swathi Reis Cholesterol [Mass/Vol] 238 mg/dL Critically high <=200 [facility] Comment on above: Performed By: #### T SH, T4, FT3, LIPID, CMP ####[facility] Qfuhpubdru5[address] [place] [address]Dr. Swathi Reis Cholesterol in HDL [Mass/Vol] 95 mg/dL Critically high 40-60 [facility] Comment on above: Performed By: #### T SH, T4, FT3, LIPID, CMP ####[facility] Uvemsfqyru260[address] [place] [phone]. Swathi Reis Cholesterol in LDL [Mass/Vol] 121.0 mg/dL Normal [facility] Comment on above: Performed By: #### T SH, T4, FT3, LIPID, CMP ####[facility] Sdvcrgpypb3975 [place] [phone]. Swathi Reis Cholesterol.total/Chol esterol in HDL [Mass ratio] 2.5 {ratio} Normal [facility] Comment on above: Performed By: #### T SH, T4, FT3, LIPID, CMP ####[facility] [address]fwtlamb[address] [place] [address]Dr. Swathi Reis HDL NORMAL > or = 60 mg/dl - LO W CARDIOVASCULAR RISK <40 mg/dl - HIGH CARDIOVASCULAR RISK Normal [facility] Comment on above: Performed By: #### T SH, T4, FT3, LIPID, CMP ####[facility] [address]fncxboah[address] [place] [address]Dr. Swathi Reis LDL CALC NORMAL SEE BELOW Normal [facility] Comment on above: Result Comment: <100 mg/dl OPTIMAL 100 - 129 mg/dl NEAR OR ABOVE OPTIMAL 130 - 159 mg/dl BORDERLINE HIGH 160 - 189 mg/dl HIGH >190 mg/dl VERY HIGH Performed By: #### T SH, T4, FT3, LIPID, CMP ####[facility] [address]irzh[address]ekf[address] [place] [address]Dr. Swathi Reis Triglyceride [Mass/Vol] 110 mg/dL Normal <=150 [facility] Comment on above: Performed By: #### T SH, T4, FT3, LIPID, CMP ####[facility] [address]ipbplrszu[address] [place] [address]Dr. Swathi Reis VLDL CALC 22.0 mg/dL Normal [facility] Comment on above: Performed By: #### T SH, T4, FT3, LIPID, CMP ####[facility] Eilwfmjivo69[address] [place] [address]Dr. Swathi Reis PROF 14(COMP METB)on 022 Albumin [Mass/Vol] 3.5 g/dL Normal 3.4-5.0 [facility] Comment on above: Performed By: #### T SH, T4, FT3, LIPID, CMP ####[facility] Efzshqevdu64[address] [place] [address]Dr. Swathi Reis Albumin/Globulin [Mass ratio] 0.9 {ratio} Normal [facility] Comment on above: Performed By: #### T SH, T4, FT3, LIPID, CMP ####[facility] Zkjlyfrape[address]643 [place] [address]Dr. Swathi Reis ALP [Catalytic activity/Vol] 112 U/L Normal 46-116 [facility] Comment on above: Performed By: #### T SH, T4, FT3, LIPID, CMP ####[facility] Ivbjwkaozm94[address] [place] [address]Dr. Swathi Reis ALT [Catalytic activity/Vol] 14 U/L Normal 14-59 [facility] Comment on above: Performed By: #### T SH, T4, FT3, LIPID, CMP ####[facility] Xmvkfxernj4985 [place] [address]Dr. Swathi Reis Anion gap [Moles/Vol] 10.4 mmol/L Normal Th [facility] Comment on above: Performed By: #### T SH, T4, FT3, LIPID, CMP ####[facility] Aaxzdxmyvu77[address] [place] [address]Dr. Swathi Reis AST [Catalytic activity/Vol] 18 U/L Normal 15-37 [facility] Comment on above: Performed By: #### T SH, T4, FT3, LIPID, CMP ####[facility] P[address]wtf[address] [place], [place] [address]Dr. Swathi Reis Bilirubin [Mass/Vol] 0.6 mg/dL Normal 0.2-1.3 The [facility] Comment on above: Performed By: #### T SH, T4, FT3, LIPID, CMP ####[facility] Lavbvamgnx[address] [place], [place] [address]Dr. Swathi Reis Calcium [Mass/Vol] 9.4 mg/dL Normal 8.5-10.1 [facility] Comment on above: Performed By: #### T SH, T4, FT3, LIPID, CMP ####[facility] L[address]tsjpdvk[address] [place], [place] [address]Dr. Swathi Reis Chloride [Moles/Vol] 101 mmol/L Normal 98-107 The [facility] Comment on above: Performed By: #### T SH, T4, FT3, LIPID, CMP ####[facility] Dtowoizfmc24[address] [place] [address]Dr. Swathi Reis CO2 [Moles/Vol] 33.2 mmol/L Critically high 22.0-30.0 [facility] Comment on above: Performed By: #### T SH, T4, FT3, LIPID, CMP ####[facility] Ss[address]nuosj[address] [place], [place] [address]Dr. Swathi Reis Creatinine [Mass/Vol] 1.13 mg/dL Critically high 0.52-1.04 [facility] Comment on above: Performed By: #### T SH, T4, FT3, LIPID, CMP ####[facility] Ilaaizxcms[address] [place], [place] [address]Dr. Swathi Reis EGFR-AF MONTENEGRIN 57 mL/min/1.73m2 Critically low >=60 [facility] Comment on above: Performed By: #### T SH, T4, FT3, LIPID, CMP ####[facility] Etib[address] [place], [place] [address]Dr. Swathi Reis EGFR-NON AF MONTENEGRIN 47 mL/min/1.73m2 Critically low >=60 [facility] Comment on above: Performed By: #### T SH, T4, FT3, LIPID, CMP ####[facility] [address]qshvitbj[address] [place], [place] [address]Dr. Swathi Reis Globulin (S) [Mass/Vol] 4.1 g/dL Normal [facility] Comment on above: Performed By: #### T SH, T4, FT3, LIPID, CMP ####[facility] Ensqtjywuf[address] [place], [place] [address]Dr. Swathi Reis Glucose [Mass/Vol] 144 mg/dL Critically high 74-106 [facility] Comment on above: Performed By: #### T SH, T4, FT3, LIPID, CMP ####[facility] [address]ppghkcl[address] [place], [place] [address]Dr. Swathi Reis Potassium [Moles/Vol] 3.6 mmol/L Normal 3.4-5.0 [facility] Comment on above: Performed By: #### T SH, T4, FT3, LIPID, CMP ####[facility] Gh[address] [place], [place] [address]Dr. Swathi Reis Protein [Mass/Vol] 7.6 g/dL Normal 6.1-8.2 [facility] Comment on above: Performed By: #### T SH, T4, FT3, LIPID, CMP ####[facility] L[address]ym[address]pbaa[address] [place], [place] [address]Dr. Yilan Reis Sodium [Moles/Vol] 141 mmol/L Normal 137-145 The [facility] Comment on above: Performed By: #### T SH, T4, FT3, LIPID, CMP ####[facility] [address]ytchtjkuc[address] [place] [address]Dr. Swathi Reis Urea nitrogen [Mass/Vol] 22.0 mg/dL Critically high 7.0-18.0 [facility] Comment on above: Performed By: #### T SH, T4, FT3, LIPID, CMP ####[facility] Epuidiffot[address] [place] [address]Dr. Swathi Reis Urea nitrogen/Creatinine [Mass ratio] 19.5 mg/mg Normal [facility] Comment on above: Performed By: #### T SH, T4, FT3, LIPID, CMP ####[facility] P[address]ass[address]ymo74[address] [place] [address]Dr. Swathi Reis T4on 01-09-2022 T4 [Mass/Vol] 8.80 ug/dL Normal 5.53-11.00 [facility] Comment on above: Performed By: #### T SH, T4, FT3, LIPID, CMP ####[facility] Ergnkptiks[address] [place] [address]Dr. Swathi Reis TSHon 01-09-2022 TSH 3.176 uIU/mL Normal 0.470-4.680 [facility] Comment on above: Performed By: #### T SH, T4, FT3, LIPID, CMP ####[facility] [address] [place], [place] [address]Dr. Swathi Reis TSH RANGE SEE BELOW Normal [facility] Comment on above: Result Comment: <0.3 4 UIU/ml HYPERTHYROID 0.34-5.60 UIU/ml EUTHYROID >5.60 UIU/ml HYPOTHYROID Performed By: #### T SH, T4, FT3, LIPID, CMP ####[facility] [address] [place], [place] [address]Dr. Swathi Reis VITAMIN D 25 OHon 01-09-2022 VIT D 25-OH 64.4 ng/mL Normal [facility] Comment on above: Performed By: #### V ITAD ####[facility] [address] [place], [place] [address]Nx. Swathi Reis VIT D RANGES SEE BELOW Normal [facility] Comment on above: Result Comment: <20 ng/mL Vit D deficient 20 - <30 ng/mL Vit D insufficient 30 - 100 ng/mL Vit D sufficient >100 ng/mL Potential Toxicity Performed By: #### V ITAD ####[facility] [address]fez[address] [place] [phone]. Swathi Reis MG MAMM DIAGNOSTIC 3D GISELE CA Don 01-05-2022 MG MAMM DIAGNOSTIC 3D GISELE CAD Normal [facility] FRESH FROZ PLASMAon 11-24-19 FRESH FROZ PLASMA Normal The [facility] Comment on above: Performed By: #### F FP ####[facility] [address] [place], [place] [address]Os. Swathi Reis Creatinine and Glomerular fi ltration rate.predicted panel (S/P/Bld)Ordered By: Shaka Echavarria on 11-11-2021 Creatinine [Mass/Vol] 1.38 mg/dL 0.44-1.03 [facility] Estimated glomerular filtrat ion rate (GFR) non- AmericanOrdered By: Shaka Echavarria on 11-11-2021 GFR/1.73 sq M.predicted among non-blacks MDRD (S/P/Bld) [Vol rate/Area] 37 mL/Min [facility] Glucose Glucometer (BldC) [M ass/Vol]Ordered By: Shaka Echavarria on 11-11-2021 Glucose [Mass/Vol] 233 mg/dL [facility] Comment on above: Random Glucose Refer ence Range is dependent on time and content of last meal. Glucose of more than 200 mg/dL in a nonstressed, ambulatory subject supports the diagnosis of Diabetes Mellitus. No Panel InformationOrdered By: Shaka Echavarria on 11-11-2021 Bedside Glucose Comment Glu2: cleaned meter [facility] Estimated GFR () 45 mL/Min [facility] Comment on above: GFR estimated refere nce range: According to KDOQI guidelines, <60 ml/min/1.73m2 is sufficient to diagnose a patient with chronic kidney disease. Pharmacy Creatinine Clearance (Chem 29.48 [facility] Serum or plasma calcium missy urement (mass/volume)Ordered By: Shaka Echavarria on 11-11-2021 Calcium [Mass/Vol] 8.9 mg/dL 8.2-10.2 [facility] Serum or plasma chloride ken surement (moles/volume)Ordered By: Shaka Echavarria on 11-11-2021 Chloride [Moles/Vol] 94 mmol/L 95-114 [facility] Serum or plasma glucose missy urement (mass/volume)Ordered By: Shaka Echavarria on 11-11-2021 Glucose [Mass/Vol] 297 mg/dL 70-100 [facility] Comment on above: Delta: 179 on -0432ADA recommended reference rangeRandom Glucose Reference Range is dependent on time and content of last meal. Glucose of more than 200 mg/dL in a nonstressed, ambulatory subject supports the diagnosis of Diabetes Mellitus. Serum or plasma potassium me asurement (moles/volume)Ordered By: Shaka Echavarria on 11-11-2021 Potassium [Moles/Vol] 3.7 mmol/L 3.5-5.1 [facility] Serum or plasma sodium measu rement (moles/volume)Ordered By: Shaka Echavarria on 11-11-2021 Sodium [Moles/Vol] 132 mmol/L 136-146 [facility] Serum or plasma total carbon dioxide measurement (moles/volume)Ordered By: Shaka Echavarria on 11-11-2021 CO2 [Moles/Vol] 22.6 mmol/L 22.0-30.0 [facility] Serum or plasma urea nitroge n measurement (mass/volume)Ordered By: Shaka Echavarria on 11-11-2021 Urea nitrogen [Mass/Vol] 19 mg/dL 9-23 [facility] Basophils Auto (Bld) [#/Vol] Ordered By: Salma Cortes on 11-10-2021 Basophils (Bld) [#/Vol] 0.0 10*3/uL 0.0-0.2 [facility] Basophils/100 WBC Auto (Bld) Ordered By: Salma Cortes on 11-10-2021 Basophils/100 WBC (Bld) 0.2 % [facility] Blood hemoglobin measurement (mass/volume)Ordered By: Salma Cortes on 11-10-2021 Hemoglobin (Bld) [Mass/Vol] 13.2 g/dL 11.8-15.4 [facility] Blood leukocytes automated c ount (number/volume)Ordered By: Salma Cortes on 11-10-2021 WBC (Bld) [#/Vol] 10.7 10*3/uL 4.5-11.0 [facility] Eosinophils Auto (Bld) [#/Vo l]Ordered By: Salma Cortes on 11-10-2021 Eosinophils (Bld) [#/Vol] 0.0 10*3/uL 0.0-0.45 [facility] Eosinophils/100 WBC Auto (Bl d)Ordered By: Salma Cortes on 11-10-2021 Eosinophils/100 WBC (Bld) 0.1 % [facility] Erythrocyte distribution wid th Auto (RBC) [Ratio]Ordered By: Salma Cortes on 11-10-2021 Erythrocyte distribution width (RBC) [Ratio] 13.8 % 11.9-15.3 [facility] Hematocrit Auto (Bld) [Volum e fraction]Ordered By: Salma Cortes on 11-10-2021 Hematocrit (Bld) [Volume fraction] 39.1 % 34.0-46.4 [facility] Laboratory - CoagulationOrde red By: Salma Cortes on 11-10-2021 PT Coag (PPP) [Time] 12.6 s 9.0-12.9 [facility] - Hematology and Cell countsOrdered By: Salma Cortes on 11-10-2021 Nucleated RBC/100 WBC (Bld) [Ratio] 0.1 % 0-0.5 [facility] Lymphocytes Auto (Bld) [#/Vo l]Ordered By: Salma Cortes on 11-10-2021 Lymphocytes (Bld) [#/Vol] 1.3 10*3/uL 1.00-4.8 [facility] Lymphocytes/100 WBC Auto (Bl d)Ordered By: Salma Cortes on 11-10-2021 Lymphocytes/100 WBC (Bld) 12.0 % [facility] MCH Auto (RBC) [Entitic mass ]Ordered By: Salma Cortes on 11-10-2021 MCH (RBC) [Entitic mass] 30.4 pg 24.7-34.3 [facility] MCHC Auto (RBC) [Mass/Vol]Or dered By: Salma Cortes on 11-10-2021 MCHC (RBC) [Mass/Vol] 33.8 g/dL 32.0-35.0 [facility] MCV Auto (RBC) [Entitic vol] Ordered By: Salma Cortes on 11-10-2021 MCV (RBC) [Entitic vol] 90.0 fL 80-100 [facility] Monocytes Auto (Bld) [#/Vol] Ordered By: Salma Cortes on 11-10-2021 Monocytes (Bld) [#/Vol] 1.2 10*3/uL 0.0-0.8 [facility] Monocytes/100 WBC Auto (Bld) Ordered By: Salma Cortes on 11-10-2021 Monocytes/100 WBC (Bld) 10.8 % [facility] Neutrophils Auto (Bld) [#/Vo l]Ordered By: Salma Cortes on 11-10-2021 Neutrophils (Bld) [#/Vol] 8.2 10*3/uL 1.8-7.7 [facility] Neutrophils/100 WBC Auto (Bl d)Ordered By: Salma Cortes on 11-10-2021 Neutrophils/100 WBC (Bld) 76.9 % [facility] Platelet mean volume Auto (B ld) [Entitic vol]Ordered By: Salma Cortes on 11-10-2021 Platelet mean volume (Bld) [Entitic vol] 9.2 fL 6.3-10.7 [facility] Platelet poor plasma interna tional normalized ratio (INR) by coagulation assay (relatOrdered By: Salma Cortes on 11-10-2021 INR Coag (PPP) [Relative time] 1.1 {INR} [facility] Comment on above: INR Therapeutic Rang e [...] 11-10-2021 Platelets (Bld) [#/Vol] 261 10*3/uL 150-450 [facility] RBC Auto (Bld) [#/Vol]Ordere d By: Salma Cortes on 11-10-2021 RBC (Bld) [#/Vol] 4.35 10*6/uL 3.60-5.00 [facility] BNPon 11-09-2021 Natriuretic peptide B (Bld) [Mass/Vol] 914.0 pg/mL Normal <=1,800.0 [facility] Comment on above: Performed By: #### C MADM, CMP, BNP ####[facility] [address] [place] [address]Dr. Swathi Reis CARDIAC TRINA ADMITon 022 CK [Catalytic activity/Vol] 50 U/L Normal 30-135 [facility] Comment on above: Performed By: #### C MADM, CMP, BNP ####[facility] Vvennvqink[address] [place] [id number]. Swathi Reis CK.MB [Mass/Vol] 1.14 ng/mL Normal <=2.37 [facility] Comment on above: Performed By: #### C MADM, CMP, BNP ####[facility] [address]faslld[address] [place] [address]Dr. Swathi Reis HSTROP 12.8 pg/mL Normal 4.0-35.5 [facility] Comment on above: Result Comment: CUT- OFF POINTS HAVE BEEN ESTABLISHED BASED ON THE FOURTH UNIVERSAL DEFINITIONS OF MYOCARDIALINFARCTION. THE UPPER REFERENCE LIMIT (URL) OF TROPONIN, DEFINED THE 99TH PERCENTILE OFcTnI DISTRIBUTION IN A REFERENCE POPULATION, HAS BEEN CONFIRMED THE DECISION THRESHOLDFOR MS DIAGNOSIS. Performed By: #### C MADM, CMP, BNP ####[facility] [address]pjybet[address] [place] [address]Dr. Swathi Reis GUANACO 53.0 ng/mL Normal <=61.5 [facility] Comment on above: Performed By: #### C MADM, CMP, BNP ####[facility] Bzwobxvpzp[address] [place] [address]Dr. Swathi Chato CBC AUTO DIFFon 11-09-2021 BASO # 0.0 103/ul Normal 0.0-0.1 [facility] Comment on above: Performed By: #### C BC ####[facility] [address] [place], [place] [address]Dr. Swathi Reis Basophils/100 WBC (Bld) 0.3 % Normal 0.2-2.0 [facility] Comment on above: Performed By: #### C BC ####[facility] [address]ai[address] [place], [place] [address]Dr. Swathi Chato EO # 0.0 103/ul Normal 0.0-0.7 [facility] Comment on above: Performed By: #### C BC ####[facility] [address]uvr[address] [place], [place] [address]Dr. Swathi Chato Eosinophils/100 WBC (Bld) 0.2 % Critically low 0.9-7.0 [facility] Comment on above: Performed By: #### C BC ####[facility] [address]dcigjtc[address] [place], [place] [address]Dr. Swathi Reis Erythrocyte distribution width (RBC) [Ratio] 13.1 % Normal 11.0-15.0 [facility] Comment on above: Performed By: #### C BC ####[facility] Av[address]speogl[address] [place], [place] [address]Dr. Inessatracy Chato Hematocrit (Bld) [Volume fraction] 40.8 % Normal 36.0-48.0 [facility] Comment on above: Performed By: #### C BC ####[facility] [address]zfqrns[address] [place] [address]Dr. Swathi Reis Hemoglobin (Bld) [Mass/Vol] 13.3 g/dL Normal 12.0-16.0 [facility] Comment on above: Performed By: #### C BC ####[facility] [address]rlb[address] [place] [address]Dr. Swathi Reis IG # 0.05 10e3/ul Critically high 0.00-0.03 [facility] Comment on above: Performed By: #### C BC ####[facility] [address]tkwnvrwlj[address] [place] [address]Dr. Swathi Reis IG % 0.4 % Normal 0.0-0.5 [facility] Comment on above: Performed By: #### C BC ####[facility] [address]sosw[address]uw[address] [place] [address]Dr. Swathi Reis LYMPH # 1.0 103/ul Critically low 1.2-3.8 [facility] Comment on above: Performed By: #### C BC ####[facility] [address]jbke[address] [place] [address]Dr. Swathi Reis Lymphocytes/100 WBC (Bld) 8.3 % Critically low 20.5-60.0 [facility] Comment on above: Performed By: #### C BC ####[facility] [address]jifqx[address] [place] [address]Dr. Swathi Reis MANUAL DIFF REQ NO Normal [facility] Comment on above: Performed By: #### C BC ####[facility] [address]miov[address] [place] [address]Dr. Swathi Reis MCH (RBC) [Entitic mass] 29.8 pg Normal 26.7-34.0 [facility] Comment on above: Performed By: #### C BC ####[facility] [address] [place], [place] [address]Dr. Swathi Reis MCHC (RBC) [Mass/Vol] 32.6 g/dL Normal 29.9-35.2 [facility] Comment on above: Performed By: #### C BC ####[facility] [address] [place], [place] [id number]. Swathi Reis MCV (RBC) [Entitic vol] 91.5 fL Normal 81.0-99.0 [facility] Comment on above: Performed By: #### C BC ####[facility] [address] [place] [id number]. Swathi Reis MONO # 0.6 103/ul Normal 0.3-0.8 [facility] Comment on above: Performed By: #### C BC ####[facility] Rvbhzownce[address] [place] [address]Dr. Swathi Chato Monocytes/100 WBC (Bld) 4.9 % Normal 1.7-12.0 [facility] Comment on above: Performed By: #### C BC ####[facility] Csbwypkium[address] [place] [address]Dr. Swathi Reis NEUT # 10.5 103/ul Critically high 1.4-6.5 The [facility] Comment on above: Performed By: #### C BC ####[facility] Avif[address]fr[address]ps[address] [place], [place] [address]Dr. Swathi Chato Neutrophils/100 WBC (Bld) 85.9 % Critically high 43.0-75.0 The [facility] Comment on above: Performed By: #### C BC ####[facility] Crxvme[address]xf[address] [place], [place] [address]Dr. Swathi Chato Platelet mean volume (Bld) [Entitic vol] 10.9 fL Normal 9.5-13.5 The [facility] Comment on above: Performed By: #### C BC ####[facility] [address] [place], [place] [address]Dr. Swathi Chato PLT 290 103/ul Normal 150-450 The [facility] Comment on above: Performed By: #### C BC ####[facility] [address] [place], [place] [address]Dr. Inessatracy Chato RBC 4.46 106/ul Normal 4.20-5.40 The [facility] Comment on above: Performed By: #### C BC ####[facility] [address]pf[address] [place], [place] [address]Dr. Swathi Reis WBC 12.3 103/ul Critically high 4.0-11.0 The [facility] Comment on above: Performed By: #### C BC ####[facility] Kqvbzdacmd6[address] [place], [place] [address]Ay. Swathi Reis CT HEAD WO CONon 11-09-2021 CT HEAD WO CON Normal The [facility]on 10-24 SARS-CoV-2 (COVID-19) RNA ÓSCAR+probe Ql (Unsp spec) Not detected Normal NOT DETECTED The [facility] Comment on above: Result Comment: When [...] for this test is supported by the [place] of Health and Human Service's declaration that [...] be used). Performed By: #### C VDTB ####[facility] Ekms[address] [place] [address]Dr. Swathi Reis ER URINE PROFILEon Bilirubin Ql (U) Negative Normal NEGATIVE The [facility] Comment on above: Performed By: #### REYNOLD SOSA ####[facility] Ranhgniwpy[address] [place] [address]Dr. Swathi Chato Clarity (U) CLEAR Normal CLEAR The [facility] Comment on above: Performed By: #### REYNOLD SOSA ####[facility] Xukqhcoeqh65[address] [place] [address]Dr. Yilan Reis Color (U) LT. YELLOW Normal YELLOW [facility] Comment on above: Performed By: #### Amaury WATERS UMICRO ####[facility] [address]ozf[address] [place] [address]Dr. Swathi KERN A micrscopic examina tion will be performed if indicated. Normal The [facility] Comment on above: Performed By: #### Amaury WATERS UMICRO ####[facility] [address]ubwswa[address] [place] [address]Dr. Swathi Reis Glucose Ql (U) Negative Normal NEGATIVE [facility] Comment on above: Performed By: #### Amaury WATERS UMICRO ####[facility] [address] [place], [place] [address]Dr. Swathi eRis Hemoglobin Ql (U) TRACE-INTACT Abnormal NEGATIVE The [facility] Comment on above: Performed By: #### Amaury WATERS UMICRO ####[facility] M[address] [place], [place] [address]Dr. Swathi Reis Ketones Ql (U) Negative Normal NEGATIVE [facility] Comment on above: Performed By: #### Amaury WATERS ICRO ####[facility] S[address] [place], [place] [address]Dr. Swathi Reis LEUKOCYTES Negative Normal NEGATIVE [facility] Comment on above: Performed By: #### Amaury WATERS UMICRO ####[facility] E[address]hlzjwuu[address] [place], [place] [address]Dr. Swathi Reis Nitrite Ql (U) Negative Normal NEGATIVE [facility] Comment on above: Performed By: #### Amaury WATERS UMICRO ####[facility] Ldtrxqstde[address] [place] [address]Dr. Swathi Reis pH (U) 6.0 [pH] Normal 5-9 [facility] Comment on above: Performed By: #### Amaury WATERS UMICRO ####[facility] S[address]kpbaajw[address] [place], [place] [address]Dr. Swathi Reis SPEC GRAVITY 1.010 Normal 1.005-<=1.0 25 [facility] Comment on above: Performed By: #### IVÁN SOSAICRO ####[facility] [address]ubms[address] [place] [address]Dr. Swathi Reis UA PROTEIN TRACE Normal NEGATIVE/ TRACE [facility] Comment on above: Performed By: #### IVÁN SOSAICRO ####[facility] Nczdyuaaar6[address] [place] [address]Dr. Swathi Reis UR MICRO IND INDICATED Normal [facility] Comment on above: Performed By: #### IVÁN SOSAICRO ####[facility] Bqnupkrkvr[address] [place] [address]Dr. Swathi Reis Urobilinogen Qn (U) 0.2 {Sánchez'U}/dL Normal 0.2 - 1. 0 [facility] Comment on above: Performed By: #### ROMEO SOSARO ####[facility] Mtunzqnszh[address] [place] [address]Dr. Swathi Reis PROF 14(COMP METB)on 022 Albumin [Mass/Vol] 3.5 g/dL Normal 3.5-5.0 [facility] Comment on above: Performed By: #### C MADM, CMP, BNP ####[facility] G[address]qq[address]mun[address] [place], [place] [address]Dr. Swathi Reis Albumin/Globulin [Mass ratio] 1.0 {ratio} Normal [facility] Comment on above: Performed By: #### C MADM, CMP, BNP ####[facility] Rkwacjdmpo7[address] [place] [address]Dr. Swathi Reis ALP [Catalytic activity/Vol] 93 U/L Normal 38-126 [facility] Comment on above: Performed By: #### C MADM, CMP, BNP ####[facility] Oatfputida[address] [place] [address]Dr. Swathi Reis ALT [Catalytic activity/Vol] 22 U/L Normal 9-52 [facility] Comment on above: Performed By: #### C MADM, CMP, BNP ####[facility] Beuyohbong[address] [place] [address]Dr. Swathi Reis Anion gap [Moles/Vol] 15.4 mmol/L Normal Th [facility] Comment on above: Performed By: #### C MADBoston, CMP, BNP ####[facility] Gckfullwpw6028 [place] [address]Dr. Swathi Reis AST [Catalytic activity/Vol] 21 U/L Normal 14-36 [facility] Comment on above: Performed By: #### C MADM, CMP, BNP ####[facility] Wvggdoffuh8425 [place] [address]Dr. Swathi Reis Bilirubin [Mass/Vol] 0.7 mg/dL Normal 0.2-1.3 The [facility] Comment on above: Performed By: #### C MADBoston, CMP, BNP ####[facility] Np[address]om[address] [place], [place] [address]Dr. Swathi Reis Calcium [Mass/Vol] 9.5 mg/dL Normal 8.4-10.2 [facility] Comment on above: Performed By: #### C MADBoston, CMP, BNP ####[facility] Lqdwuf[address]rhq[address] [place], [place] [address]Dr. Swathi Reis Chloride [Moles/Vol] 99 mmol/L Normal 98-107 [facility] Comment on above: Performed By: #### C MADBoston, CMP, BNP ####[facility] Pxxbgunqsk5402 [place] [address]Dr. Swathi Reis CO2 [Moles/Vol] 31.0 mmol/L Critically high 22.0-30.0 The [facility] Comment on above: Performed By: #### C MADM, CMP, BNP ####[facility] Xqxicgtsge[address] [place] [address]Dr. Swathi Reis Creatinine [Mass/Vol] 1.10 mg/dL Critically high 0.52-1.04 [facility] Comment on above: Performed By: #### C MADM, CMP, BNP ####[facility] Vgaszvvkqs[address] [place] [address]Dr. Swathi Reis EGFR-AF MONTENEGRIN 58 mL/min/1.73m2 Critically low >=60 The [facility] Comment on above: Performed By: #### C MADM, CMP, BNP ####[facility] Voohztmwkp25[address] [place] [address]Dr. Swathi Reis EGFR-NON AF MONTENEGRIN 48 mL/min/1.73m2 Critically low >=60 [facility] Comment on above: Performed By: #### C MADM, CMP, BNP ####[facility] Klgtvddbeg27[address] [place] [address]Dr. Swathi Reis Globulin (S) [Mass/Vol] 3.5 g/dL Normal [facility] Comment on above: Performed By: #### C MADM, CMP, BNP ####[facility] Nnqhomtdzy4676 [place] [address]Dr. Swathi Reis Glucose [Mass/Vol] 203 mg/dL Critically high 74-106 T [facility] Comment on above: Performed By: #### C MADM, CMP, BNP ####[facility] Sqtx[address]shyor[address] [place], [place] [address]Dr. Swathi Reis Potassium [Moles/Vol] 4.4 mmol/L Normal 3.4-5.0 [facility] Comment on above: Performed By: #### C MADM, CMP, BNP ####[facility] Tutonpnuke[address] [place], [place] [address]Dr. Swathi Reis Protein [Mass/Vol] 7.0 g/dL Normal 6.1-8.2 [facility] Comment on above: Performed By: #### C MADM, CMP, BNP ####[facility] Umvsfxnscw[address] [place], [place] [address]Dr. Swathi Reis Sodium [Moles/Vol] 141 mmol/L Normal 137-145 The [facility] Comment on above: Performed By: #### C MADM, CMP, BNP ####[facility] Auijqndyit[address] [place], [place] [address]Dr. Swathi Reis Urea nitrogen [Mass/Vol] 21.0 mg/dL Critically high 7.0-17.0 [facility] Comment on above: Performed By: #### C MADM, CMP, BNP ####[facility] Ftbyexdzeu[address] [place], [place] [address]Dr. Swathi Reis Urea nitrogen/Creatinine [Mass ratio] 19.1 mg/mg Normal [facility] Comment on above: Performed By: #### C MADM, CMP, BNP ####[facility] Sb[address]estosc[address] [place], [place] [address]Dr. Swathi Reis PROTIMEon 11-09-2021 INR Coag (PPP) [Relative time] 1.09 {INR} Normal [facility] Comment on above: Performed By: #### P T, PTT ####[facility] Jietqpjqsw[address] [place], [place] [address]Dr. Swathi Reis INR GUIDELINES SEE BELOW Normal The [facility] Comment on above: Result Comment: HARRIETT RED INR: 2.0 - 3.0 CONDITIONS NOT LISTED BELOW 2.5 - 3.5 FOR PROSTHETIC HEART VALVE REPLACEMENT 2.5 - 3.5 RECURRENT THROMBOSIS Performed By: #### P T, PTT ####[facility] Yphbmbbrns[address] [place], [place] [address]Dr. Swathi Reis PT Coag (PPP) [Time] 11.7 s Critically high 9.0-11.6 [facility] Comment on above: Performed By: #### P T, PTT ####[facility] [address]xkvmlwr[address] [place], [place] [address]Dr. Swathi Reis INR Coag (PPP) [Relative time] 3.45 {INR} Normal [facility] Comment on above: Performed By: #### P TT, PT ####[facility] Agwnjwz[address] [place], [place] [address]Dr. Swathi Reis INR GUIDELINES SEE BELOW Normal [facility] Comment on above: Result Comment: HARRIETT RED INR: 2.0 - 3.0 CONDITIONS NOT LISTED BELOW 2.5 - 3.5 FOR PROSTHETIC HEART VALVE REPLACEMENT 2.5 - 3.5 RECURRENT THROMBOSIS Performed By: #### P TT, PT ####[facility] Uhipdmgkyx[address] [place], [place] [address]Dr. Swathi Reis PT Coag (PPP) [Time] 34.4 s Critically high 9.0-11.6 [facility] Comment on above: Performed By: #### P TT, PT ####[facility] Bprlvlwwmb25[address] [place] [address]Dr. Inessatracy Chato PTTon 11-09-2021 aPTT Coag (Bld) [Time] 25.9 s Normal 22.3-36.2 Th [facility] Comment on above: Performed By: #### P T, PTT ####[facility] Yhzlhqyljx[address] [place] [address]Dr. Swathi Chato aPTT Coag (Bld) [Time] 39.1 s Critically high 22.3-36. 2 [facility] Comment on above: Performed By: #### P TT, PT ####[facility] [address]sxqxc[address] [place], [place] [address]Dr. Swathi Reis TYPE AND SCREENon 11-09-2021 TYPE AND SCREEN Negative Normal The [facility] Comment on above: Performed By: #### T NS ####[facility] Saxerjyx[address] [place], [place] [address]Dr. Swathi Reis URINE MICROSCOPIC ONLYon BACTERIA NONE SEEN Normal NONE SEEN [facility] Comment on above: Performed By: #### IVÁN SOSAICRO ####[facility] O[address]upbx[address] [place], [place] [address]Dr. Swathi Reis Bacteria identified Cx Nom (U) NOT INDICATED Normal [facility] Comment on above: Performed By: #### Amaury WATERS UMICRO ####[facility] [address]xbvuob[address]jr[address] [place], [place] [address]Dr. Swathi Reis CAST NONE SEEN Normal NONE SEEN The [facility] Comment on above: Performed By: #### Amuary WATERS UMICRO ####[facility] [address] [place], [place] [address]Dr. Swathi Reis Crystals LM Nom (Urine sed) NONE SEEN Normal NONE SEEN [facility] Comment on above: Performed By: #### Amaury WATERS UMICRO ####[facility] [address]ojyl[address] [place] [address]Dr. Swathi Reis Epithelial cells LM Ql (Urine sed) FEW Abnormal NONE SEEN /RARE The [facility] Comment on above: Performed By: #### E RUR UMICRO ####[facility] [address]hyhl[address] [place], [place] [address]Ct. Swathi Reis MUCOUS NONE SEEN Normal NONE SEEN [facility] Comment on above: Performed By: #### E RUR, UMICRO ####[facility] [address] [place], [place] [address]Fl. Swathi Reis RBC 2-5 Abnormal 0-2 [facility] Comment on above: Performed By: #### E RUR UMICRO ####[facility] W[address]lpdo9034 [place], [place] [address]Jb. Swathi Reis WBC NONE SEEN Normal NONE SEEN [facility] Comment on above: Performed By: #### E MATTYR UMICRO ####[facility] T[address]ias[address]251 [place], [place] [address]Nt. Swathi Reis XR CHEST 1 Von 11-09-2021 XR CHEST 1 V Normal [facility] Coding Summary.on 09-14-2020 Coding Summary. CODING DATE: 020 [facility] STATUS: Short-Term Hosp as IP PAYOR: [...] Revised Date Saved: 09/14/2020 08:26 am Normal [facility] EMS Documentationon 09-12-20 20 EMS Documentation [id number]:1 [id number] Normal [facility] ED Clinical Summaryon 2019 ED Clinical Summary (Inserted Image. Ave ble to display) [place] [id number] ED Clinical Summary Person Information Name: ANDREW BARROS/Alissa Age: 74 Years : 1945 Sex: Female Language: [place] PCP: Eduardo Sharpe MD Marital Status: Phone: [phone] Visit Id: Visit Reason: Shortness of breath; [...] 09/09/2020 23:10:35 09/09/2020 23:10:35 09/09/2020 23:10:35 ADDRESS: [address] [place] [address] DOC NOTES: Addendum by Hayder Pettit DO on September 09, 2020 18:55:26 EST MEDICAL INFORMATION: Prescriptions Given: Medications to Continue with No Changes Other Medications insulin aspart (NovoLog) 8 Units Subcutaneous every day. nitroglycerin nitroglycerin (nitroglycerin 0.4 mg sublingual Tab) 1 Tablets Sublingual every 5 minutes as needed for chest pain. PATIENT EDUCATION INFORMATION: Instructions: Follow up: DIAGNOSIS: COVID-19; Hypoxemia; Pneumonia Normal [facility] ED Patient Education Noteon 09-10-2020 ED Patient Education Note Normal [facility] ED Patient Summaryon 020 ED Patient Summary (Inserted Image. Ave ble to display) [address] [address] Patient Discharge Instructions Person Information Name: ANDREW BARROS Age: 74 Years Arrival Date: 09/09/2020 12:32:39 Discharge Diagnosis: COVID-19; Hypoxemia; Pneumonia Primary Care Physician: Eduardo Sharpe MD Provider Information Primary Provider: Hayder Pettit DO Advanced Radio Interference Expert:None The exam and treatment you received in the Emergency Department were for an urgent problem and are not intended as complete care. It is important that you follow up with a doctor, nurse practitioner, or physician?s planning assistant for ongoing care. If your symptoms become worse or you do not improve as expected and you are unable to reach your usual health care provider, you should return to the Emergency Department. We are available 24 hours a day. PAPO ANDREW has been given the following list [...] opioids can be used to help relieve afvzyknd-cr-uoggnj pain and are often prescribed following a [...] be struggling with addiction, tell your health primary care md and ask for guidance or call [facility] National Helpline at 3-253-831-ISHM. v Source: [place] Department of Health and Human Services/Center for Disease Control & Prevention [facility] Medications Given: Medication Dose Route levo (more content not included)... Normal [facility] Progress Note-Tracy 2019 Progress Note- [facility] ems at bedside receiving report and preparing patient for transport to [facility]. pt taken off high flow NC and placed on non rebreather at 15L/min o2 for traansport. Normal [facility] Troponin 9 Hr.on 09-10-2020 Troponin I.cardiac [Mass/Vol] 57.60 pg/mL Abnormal 10.10-27.10 [facility] Comment on above: Result Comment: Crit [...] Umair, April 2018) Performed By: #### 1 [id number] ####[facility] [address] [place] [address] .Manual Abson 09-09-2020 Basophils/Leukocytes Manual cnt (Bld) [Pure # fraction] 0.0 E9/L Normal 0.0-0.2 [facility] Comment on above: Performed By: #### 1 3893286, 5236847, 8952045, 9656316, 76276000, 93869061, 8098285, 32749298, 47082731 #### [facility] [address] [place] [address] Eosinophils/Leukocytes Manual cnt (Bld) [Pure # fraction] 0.0 E9/L Normal 0.0-0.5 [facility] Comment on above: Performed By: #### 1 9560532, 9391668, 1196531, 3441066, 90771631, 71568411, 5805880, 71314568, 25576136 #### [facility] [address] [place] [address] Lymphocytes/Leukocytes Manual cnt (Bld) [Pure # fraction] 0.4 E9/L Low 1.0-4.0 [facility] Comment on above: Performed By: #### 1 8562476, 1109142, 7192097, 7258286, 87748481, 14328509, 3489585, 23259510, 20300731 #### [facility] [address] [place] [address] Monocytes/Leukocytes Manual cnt (Bld) [Pure # fraction] 1.5 E9/L High 0.2-1.0 [facility] Comment on above: Performed By: #### 1 2974306, 9539734, 0665618, 6972650, 04812961, 11812409, 4351119, 54784470, 26046990 #### [facility] [address] [place] [address] Neutrophils/Leukocytes Auto (Bld) [Pure # fraction] 18.9 E9/L High 2.0-7.5 [facility] Comment on above: Performed By: #### 1 8166187, 3300311, 0541345, 6944635, 27909256, 93881897, 5284518, 16898772, 42519296 #### [facility] [address] [place] [address] BMP 09-09-2020 Creatinine [Mass/Vol] 1.1 mg/dL Normal 0.5-1.3 [facility] Comment on above: Performed By: #### 1 4310517, 1516400, 1424573, 9942724, 42381000, 37185136, 1022890, 20288932, 79525667 #### [facility] [address] [place] [address] Urea nitrogen [Mass/Vol] 26 mg/dL High 5-21 [facility] Comment on above: Performed By: #### 1 5496580, 4983807, 0560388, 2392731, 22252116, 72650962, 2977205, 94261793, 13789443 #### [facility] [address] [place] [address] Urea nitrogen/Creatinine [Mass ratio] 24 No Units High 10-20 [facility] Comment on above: Performed By: #### 1 8336509, 0061540, 8544116, 9195650, 63762212, 97686323, 9125466, 05439725, 15619120 #### [facility] [address] [place] [address] Anion gap [Moles/Vol] 14 mmol/L Normal 6-16 [facility] Comment on above: Performed By: #### 1 3647678, 8336801, 3182262, 1812827, 30333562, 45596038, 1497286, 97024581, 90539324 #### [facility] [address] [place] [address] Calcium [Mass/Vol] 8.7 mg/dL Low 8.9-11.1 [facility] Comment on above: Performed By: #### 1 0470916, 3815208, 0559187, 8125732, 43896891, 36205677, 3736956, 90637324, 25183548 #### [facility] [address] [place] [address] Chloride [Moles/Vol] 104 mmol/L Normal 101-111 [facility] Comment on above: Performed By: #### 1 1718490, 6568449, 9000280, 1683013, 55029212, 88740631, 6915567, 54685990, 05336523 #### [facility] [address] [place] [address] CO2 [Moles/Vol] 23 mmol/L Normal 21-31 [facility] Comment on above: Performed By: #### 1 2498648, 4017171, 4968778, 1789291, 91956569, 45035618, 6026117, 23854432, 22304430 #### [facility] [address] [place] [address] Glucose [Mass/Vol] 256 mg/dL High 55-199 [facility] Comment on above: Result Comment: If t his glucose result represents a fasting glucose, interpretation should refer to the following reference range: 55-99 mg/dL Performed By: #### 1 6249894, 1926907, 2280403, 6213877, 82504041, 90396812, 4872504, 99365096, 72297730 #### [facility] [address] [place] [address] Potassium [Moles/Vol] 4.9 mmol/L Normal 3.5-5.3 [facility] Comment on above: Performed By: #### 1 2214319, 3672452, 1538617, 5906549, 93060848, 82633442, 5650713, 10615121, 39611973 #### [facility] [address] [place] [address] Sodium [Moles/Vol] 136 mmol/L Normal 135-145 [facility] Comment on above: Performed By: #### 1 1485930, 6810025, 5335139, 3744182, 05415637, 61526814, 7526944, 50353043, 03556410 #### [facility] [address] [place] [address] BNPon 09-09-2020 [address] Ctr BNP Pass Normal [facility] Comment on above: Performed By: #### 1 8190326, 3420507, 1461618, 7961090, 77618156, 08449417, 7592660, 22326736, 36223556 ####[facility] [address] [place] [address] Natriuretic peptide B (Bld) [Mass/Vol] 477 pg/mL High 5-80 [facility] Comment on above: Performed By: #### 1 2827084, 9508454, 9835292, 1585108, 75577897, 73628283, 1875689, 33827339, 34254937 ####[facility] [address] [place] [address] Bld Gas Arton 09-09-2020 a/A Ratio Art 37.50 Normal >=0.80 [facility] Comment on above: Performed By: #### 1 4269194 ####[facility] [address] [place] [address] AaDO2 Art 144.6 High 5.0-15.0 [facility] Comment on above: Performed By: #### 1 6212033 ####[place] [address] [place] [address] Allens Test Positive Invalid Interpretation Code [facility] Comment on above: Result Comment: [facility] [address] [place] [address] Performed By: #### 1 7487570 ####[facility] [address] [place] [address] Base excess Calc (Bld) [Moles/Vol] -1.8000 mmol/L Low >=2.8 [facility] Comment on above: Performed By: #### 1 5247375 ####[address] [address] Called By: TSB Invalid Interpretation Code [facility] Comment on above: Performed By: #### 1 7463464 ####[address] [address] Called To: COLTON Invalid Interpretation Code [facility] Comment on above: Performed By: #### 1 2501510 ####[address] [address] cCa2+ Art 4.93 mg/dL Normal 4.40-5.30 [facility] Comment on above: Performed By: #### 1 1708209 ####[address] [address] cCl- Art 106.0 mmol/L Normal 101.0-111.0 [facility] Comment on above: Performed By: #### 1 9564678 ####[address] [address] cGlu Art 262.0 mg/dL High 55.0-199.0 [facility] Comment on above: Result Comment: 83 Performed By: #### 1 9573414 ####[address] [address] cK+ Art 4.9 mmol/L Normal 3.5-5.3 [facility] Comment on above: Performed By: #### 1 4440689 ####[address] [address] cLac Art 1 mmol/L Low 5-14 [facility] Comment on above: Performed By: #### 1 6486692 ####[place] [address] [place] [address] erisa attorney+ Art 140.0 mmol/L Normal 135.0-145.0 [facility] Comment on above: Performed By: #### 1 [id number] ####[address] [place] [address] CO2 (Bld) [Partial pressure] 45.5 mm[Hg] High 35.0-45.0 [facility] Comment on above: Result Comment: 83 Performed By: #### 1 [id number] ####[address] [address] Device NASAL Invalid Interpretation Code [facility] Comment on above: Performed By: #### 1 [id number] ####[address] [address] Drawn by TSB Invalid Interpretation Code [facility] Comment on above: Performed By: #### 1 [id number] ####[address] [facility] [place] [address] Dt/Tm Notified 12:54:00 Invalid Interpretation Code [facility] Comment on above: Performed By: #### 1 [id number] ####[address] [place] [address] FCOHb Art 1.1 % Low 1.5-4.9 [facility] Comment on above: Result Comment: 84 Reference range Nonsmoker <1.5% Smoker <5.0% Heavy Smoker <9.0% Performed By: #### 1 [id number] ####[address] [facility] [place] [address] FIO2 BG 40.0 Invalid Interpretation Code [facility] Comment on above: Performed By: #### 1 [id number] ####[address] [facility] [place] [address] Flow 5.00 Invalid Interpretation Code [facility] Comment on above: Performed By: #### 1 [id number] ####[facility] [address] [facility] [place] [address] FMetHb Art 0.6 % Normal 0.0-1.9 [facility] Comment on above: Performed By: #### 1 [id number] ####[facility] [address] [facility] [place] [address] FO2Hb Art 94.9 % Normal 92.0-100.0 [facility] Comment on above: Performed By: #### 1 [id number] ####[facility] [address] [place] [address] HCO3 (Bld) [Moles/Vol] 22.9 mmol/L Normal 22.0-26.0 [facility] Comment on above: Performed By: #### 1 [id number] ####[address] [place] [address] Hemoglobin (Bld) [Mass/Vol] 9.9 g/dL Low 12.0-16.0 [facility] Comment on above: Result Comment: 84 Performed By: #### 1 [id number] ####[address] [address] Oxygen saturation in Blood 96.6 % Normal 95.0-100.0 [facility] Comment on above: Performed By: #### 1 [id number] ####[facility] [address] [place] [address] P O2 Arterial 86.6 mmHg Normal 80.0-100.0 [facility] Comment on above: Performed By: #### 1 [id number] ####[address] [place] [address] pH (Bld) 7.333 [pH] Low 7.350-7.450 [facility] Comment on above: Result Comment: 84 Performed By: #### 1 [id number] ####[address] [place] [address] Sample Site RR Invalid Interpretation Code [facility] Comment on above: Performed By: #### 1 [id number] ####[address] [place] [address] Sample Type Arterial Invalid Interpretation Code [facility] Comment on above: Performed By: #### 1 [id number] ####[facility] [id number] CBC w/ Auto Diffon 0 Erythrocyte distribution width (RBC) [Ratio] 15.1 % High 10.9-14.2 [facility] Comment on above: Performed By: #### 1 0959247, 6029582, 9309956, 8333625, 81176065, 23721389, 9429184, 67680124, 06492203 #### [facility] [id number] Hematocrit (Bld) [Volume fraction] 30.7 % Low 34.0-46.0 [facility] Comment on above: Performed By: #### 1 9816557, 9662816, 2681623, 3495481, 27461022, 52553215, 2348596, 91878770, 44758165 #### [facility] [address] [place] [address] Hemoglobin (Bld) [Mass/Vol] 9.9 g/dL Low 12.0-16.0 [facility] Comment on above: Performed By: #### 1 8855786, 4227016, 3426694, 3562115, 52160045, 46444302, 5643034, 24362535, 93885342 #### [facility] [address] [place] [address] MCH (RBC) [Entitic mass] 29.7 pg Normal 27.0-34.0 [facility] Comment on above: Performed By: #### 1 3490650, 7922441, 3412419, 0333748, 21570211, 21434173, 1760092, 60876822, 37341883 #### [facility] [address] [place] [address] MCHC (RBC) [Mass/Vol] 32.2 g/dL Normal 31.4-36.0 [facility] Comment on above: Performed By: #### 1 8729279, 1638316, 0528904, 3243935, 39956909, 36124669, 7876304, 92533297, 74412503 #### [facility] [address] [place] [address] MCV (RBC) [Entitic vol] 92.3 fL Normal 80.0-100.0 [facility] Comment on above: Performed By: #### 1 8242962, 6846792, 2675748, 1252345, 71301956, 58610732, 6359773, 50077968, 87604941 #### [facility] [address] [place] [address] Platelet mean volume (Bld) [Entitic vol] 8.4 fL Normal 6.4-10.8 [facility] Comment on above: Performed By: #### 1 4886898, 3031383, 7167862, 6867884, 23283669, 36068479, 1355865, 93407024, 42663297 #### [facility] [address] [place] [address] Platelets (Bld) [#/Vol] 243.0 E9/L Normal 150.0-500.0 [facility] Comment on above: Performed By: #### 1 6934269, 0743740, 9515405, 9612932, 82489339, 10361732, 7816373, 04472313, 07528046 #### [facility] [address] [place] [address] RBC (Bld) [#/Vol] 3.3 E12/L Low 4.3-5.9 [facility] Comment on above: Performed By: #### 1 2706618, 9334958, 2413352, 1173980, 42342200, 44327452, 8681490, 42825867, 51058115 #### [facility] [address] [place] [address] WBC corrected for nucl RBC Auto (Bld) [#/Vol] 21.7 E9/L High 4.0-11.0 [facility] Comment on above: Performed By: #### 1 4857127, 0250224, 7186697, 1386139, 49307179, 65889395, 9662843, 46520481, 09358441 #### [facility] [address] [place] [address] CTA Cheston 09-09-2020 CTA Chest Exam Date/Time: [...] 370 Contrast amount in ml's: 66 Normal [facility] Consent for Treatmenton 08-23 Consent for Treatment [id number] Normal [facility] D-Dimeron 09-09-2020 Fibrin D-dimer FEU (PPP) [Mass/Vol] 1480 ng/mL Abnormal 215-500 [facility] Comment on above: Result Comment: Resu [...] infections Liver cirrhosis Performed By: #### 1 4536678, 1297285, 1723213, 3661543, 06021950, 53864701, 5450688, 18453436, 29755404 ####[facility] [address] [place] [address] ED Note-Physicianon 09-09-20 20 ED Note-Physician Basic Information Time Seen: Hayder Pettit DO 09/09/2020 12:35 Chief Complaint Sent [...] (09/09/20 13 (more content not included)... Normal [facility] Comment on above: Result Comment: Elec tronically Signed By: Hayder Pettit DO\.br\Date and Time Signed: 09/09/20 18:56 EST Lactic Acidon 09-09-2020 Lactate [Mass/Vol] 1.0 mmol/L Normal 0.5-2.2 [facility] Comment on above: Performed By: #### 2 850191 ####[facility] [address] [place] [address] Manual Diffon 09-09-2020 Band form neutrophils/100 WBC (Bld) 6 % Normal 0-10 [facility] Comment on above: Order Comment: Order Added by Discern Expert. Performed By: #### 1 7620715, 3017057, 8258835, 4383147, 56683018, 09407442, 6462517, 60439449, 60357966 #### [facility] [address] [place] [address] Basophils/100 WBC (Bld) 0 % Normal 0-2 [facility] Comment on above: Order Comment: Order Added by Discern Expert. Performed By: #### 1 3120053, 6546542, 7551618, 2266048, 00922234, 08546483, 7971033, 92144201, 54932502 #### [facility] [address] [place] [address] Eosinophils/100 WBC (Bld) 0 % Normal 0-8 [facility] Comment on above: Order Comment: Order Added by Discern Expert. Performed By: #### 1 6016460, 3078153, 1441092, 7797261, 70317279, 89862137, 0585198, 08505668, 18394224 #### [facility] [address] [place] [address] Lymphocytes/100 WBC (Bld) 2 % Low 14-50 [facility] Comment on above: Order Comment: Order Added by Discern Expert. Performed By: #### 1 8563374, 2611169, 4547610, 0512141, 70934880, 82770931, 0839879, 67193268, 61458506 #### [facility] [address] [place] [address] Metamyelocytes/Leukocy sade Manual cnt (Bld) [Pure # fraction] 2 % High <=0 [facility] Comment on above: Order Comment: Order Added by Discern Expert. Performed By: #### 1 8401049, 3085933, 3688765, 1320892, 42750001, 93656614, 2339161, 42346977, 81550402 #### [facility] [address] [place] [address] Monocytes/100 WBC (Bld) 7 % Normal 4-14 [facility] Comment on above: Order Comment: Order Added by Discern Expert. Performed By: #### 1 7122368, 2042868, 9351667, 9932142, 85963016, 88019458, 5627908, 02354002, 66475446 #### [facility] [address] [place] [address] Morphology Elie (Bld) [Interp] Normal Normal [facility] Comment on above: Order Comment: Order Added by Discern Expert. Performed By: #### 1 1584890, 9935666, 2345850, 1144160, 65920389, 82533513, 0440358, 99505602, 96394785 #### [facility] [address] [place] [address] Myelocytes/100 WBC (Bld) 2 % High <=0 [facility] Comment on above: Order Comment: Order Added by Discern Expert. Performed By: #### 1 8424518, 5483360, 3316370, 1020383, 82235036, 59630480, 9535513, 89634159, 06257552 #### [facility] [address] [place] [address] Nucleated cells (Bld) [#/Vol] 1 High <=0 [facility] Comment on above: Order Comment: Order Added by Discern Expert. Performed By: #### 1 2752325, 0129339, 8848256, 2486874, 15938369, 45943377, 7212060, 41562234, 96472570 #### [facility] [address] [place] [address] Segmented neutrophils/100 WBC (Bld) 81 % High 36-75 [facility] Comment on above: Order Comment: Order Added by Discern Expert. Performed By: #### 1 5943785, 8685697, 3604082, 8203367, 66360614, 72100370, 2923627, 43171624, 57241488 #### [facility] [address] [place] [address] Variant lymphocytes LM Ql (Bld) 0 % Invalid Interpretation Code [facility] Comment on above: Order Comment: Order Added by Discern Expert. Performed By: #### 1 4799111, 4175470, 1398014, 6451473, 99498140, 45279924, 8792450, 24070032, 82539619 #### [facility] [address] [place] [address] PTon 09-09-2020 INR Coag (PPP) [Relative time] 1.9 {INR} Invalid Interpretation Code [facility] Comment on above: Result Comment: INR results are specifically intended to assess patients stabilized on long-term Anticoagulation therapy suggested INR?s ?Less Intensive Anticoagulation? 2.0 ? 3.0 Conventional Range 3.0 ? 4.5 Performed By: #### 2 324111, 0063107 ####[facility] [address] [place] [address] PT Coag (PPP) [Time] 22.8 second(s) High 10.2-12.9 [facility] Comment on above: Performed By: #### 2 378808, 7648437 ####[facility] [address] [place] [address] PT & PTTon 09-09-2020 aPTT Coag (PPP) [Time] 31.7 second(s) Normal 25.1-36.5 [facility] Comment on above: Result Comment: Hepa rin therapeutic range (represented by Anti-Factor Xa activity of 0.2 - 0.4 U/mL) corresponds to PTT of 56.6 - 109.0 sec. Performed By: #### 1 1210357, 0953510, 3746229, 3049025, 95548295, 45101871, 1440027, 14378061, 37952236 ####[facility] [address] [place] [address] INR Coag (PPP) [Relative time] 2.0 {INR} Invalid Interpretation Code [facility] Comment on above: Result Comment: INR results are specifically intended to assess patients stabilized on long-term Anticoagulation therapy suggested INR?s ?Less Intensive Anticoagulation? 2.0 ? 3.0 Conventional Range 3.0 ? 4.5 Performed By: #### 1 3770240, 1555183, 4970946, 1704112, 00454709, 98890956, 6180309, 41791770, 20064592 ####[facility] [address] [place] [address] PT Coag (PPP) [Time] 23.6 second(s) High 10.2-12.9 [facility] Comment on above: Performed By: #### 1 9229406, 9553552, 9017371, 7969991, 68983755, 78476585, 1917491, 41740984, 04916410 ####[facility] [address] [place] [address] PTTon 09-09-2020 aPTT Coag (PPP) [Time] 30.4 second(s) Normal 25.1-36.5 [facility] Comment on above: Result Comment: Hepa rin therapeutic range (represented by Anti-Factor Xa activity of 0.2 - 0.4 U/mL) corresponds to PTT of 56.6 - 109.0 sec. Performed By: #### 2 686567, 2691908 ####[facility] [address] [place] [address] Progress Note-Nurseon 2019 Progress Note-Nurse Pt care report provi ded to JARRET Hirsch. Pts family member, Rosenda updated on pt status. Presently awaiting transport [place] [facility], [place] 2200hrs Normal [facility] Progress Note-Nurse Pt care report alan d to [facility] CONSULTANT Zach, advised of family contact information and will send SNF paperwork with patient. Normal [facility] Progress Note-Nurse Pts daughter, Rosenda updated on pt transfer and condition. Rosenda: [phone] Pts family sts pt is under extreme stress, pts spouse yesterday due to COVID infection. Normal [facility] Progress Note-Nurse Pts son updated on p t condition, presently awating updated order set. Pt returns from CT, RT at bedside for high flow o2 placement. Normal [facility] Progress Note-Nurse IV ABx completed at this time, pt to CT Normal [facility] Progress Note-Nurse Pt c/o increased dys pnea, spo2 reading 89% oxygen increased to 6lpm, nasal cannula. made aware, requests RT for high flow oxygen therapy Normal [facility] Progress Note-Nurse Advised per CT that IV no longer infuses/flushes, await IV access at this time via US. Normal [facility] Progress Note-Nurse Pt to imaging at thi s time. Normal [facility] Troponin 0 Hr.on 09-09-2020 Troponin I.cardiac [Mass/Vol] 10.10 pg/mL Normal 10.10-27.10 [facility] Comment on above: Result Comment: The 95% CI (Confidence Interval) PPV (Positive Predictive Value) for myocardial infarction in females is 38 pg/mL, in males 51 pg/mL. The results should be used in conjunction with clinical conditions of myocardial infarction. ([facility] High Sensitivity Troponin I Instructions For Use, WorkpopApril 2018) Performed By: #### 1 1552210, 5859075, 6845429, 0902786, 34078930, 18121119, 0682104, 65392203, 40511439 ####[facility] [address] [place] [address] Troponin 3 Hr.on 09-09-2020 Troponin I.cardiac [Mass/Vol] 20.20 pg/mL Normal 10.10-27.10 [facility] Comment on above: Result Comment: The 95% CI (Confidence Interval) PPV (Positive Predictive Value) for myocardial infarction in females is 38 pg/mL, in males 51 pg/mL. The results should be used in conjunction with clinical conditions of myocardial infarction. ([facility] High Sensitivity Troponin I Instructions For Use, [employer], April 2018) Performed By: #### 1 [id number] ####[facility] [address] [place] [address] Troponin 6 Hr.on 09-09-2020 Troponin I.cardiac [Mass/Vol] 37.60 pg/mL High 10.10-27.10 [facility] Comment on above: Result Comment: The 95% CI (Confidence Interval) PPV (Positive Predictive Value) for myocardial infarction in females is 38 pg/mL, in males 51 pg/mL. The results should be used in conjunction with clinical conditions of myocardial infarction. ([facility] High Sensitivity Troponin I Instructions For Use, [employer], April 2018) Performed By: #### 1 [id number] #### [facility] [address] [place] [address] XR Chest Single Viewon 09-09 XR Chest [...] Signature): 09/09/2020 1:29 pm Signed by: Mahogany Mcclednon DO Transcribed by: MATTHEW Technologist: JAI Chase [facility] eGFRon 09-09-2020 GFR/1.73 sq M.predicted among blacks MDRD (S/P/Bld) [Vol rate/Area] 59 mL/min/1.73 m2 Normal >=59 [facility] Comment on above: Order Comment: Order added by Discern Expert. Result Comment: eGFR is race adjusted. AA=. Performed By: #### 1 1389501, 6710511, 4779794, 0211384, 00493942, 30320174, 9953735, 31792278, 19496800 #### [facility] [address] [place] [address] GFR/1.73 sq M.predicted among non-blacks MDRD (S/P/Bld) [Vol rate/Area] 48 mL/min/1.73 m2 Low >=59 [facility] Comment on above: Order Comment: Order added by Discern Expert. Result Comment: Resident Doctor les kidney disease could be indicated at eGFR's of less than 60 mL/min/1.73m2. Kidney failure is indicated at less than 15 mL/min/1.73m2. Performed By: #### 1 6470993, 5809537, 9907354, 8654944, 65860976, 20810577, 2278028, 43846594, 20494193 #### [facility] [address] [place] [address] Vital Signs Date Time Vital Sign Value Performing Clinician Facility 07-16-2024 09:38-0400 Body height 162.56 cm MD Eduardo Sharpe Work Phone: [facility] [place] 07-16-2024 09:38-0400 Body mass index (BMI) [Ratio] 24.1 kg/m2 MD Eduardo Sharpe Work Phone: [facility] 07-16-2024 09:38-0400 Body temperature 97.3 [degF] MD Eduardo Sharpe Work Phone: [facility] 07-16-2024 09:38-0400 Body weight 63.72 kg MD Eduardo Sharpe Work Phone: [facility] 07-16-2024 09:38-0400 Diastolic blood pressure 74 mm[Hg] MD Eduardo Sharpe Work Phone: [facility] [place] 07-16-2024 09:38-0400 Heart rate 63 /min MD Eduardo Sharpe Work Phone: [facility] 07-16-2024 09:38-0400 Respiratory rate 16 /min MD Eduardo Sharpe Work Phone: [facility] [place] 07-16-2024 09:38-0400 SaO2% (BldA) [Mass fraction] 98 % MD Eduardo Sharpe Work Phone: [facility] [place] 07-16-2024 09:38-0400 Systolic blood pressure 143 mm[Hg] MD Eduardo Sharpe Work Phone: [facility] 05-26-2024 11:08-0400 Diastolic blood pressure 67 mm[Hg] MD Eduardo Sharpe Work Phone: [facility] 05-26-2024 11:08-0400 Heart rate 60 /min MD Eduardo Sharpe Work Phone: [facility] 05-26-2024 11:08-0400 Respiratory rate 16 /min MD Eduardo Sharpe Work Phone: [facility] 05-26-2024 11:08-0400 SaO2% (BldA) [Mass fraction] 97 % MD Eduardo Sharpe Work Phone: [facility] 05-26-2024 11:08-0400 Systolic blood pressure 126 mm[Hg] MD Eduardo Sharpe Work Phone: [facility] 05-26-2024 08:44-0400 Body height 162.56 cm MD Eduardo Sharpe Work Phone: [facility] 05-26-2024 08:44-0400 Body weight 60.78 kg MD Eduardo Sharpe Work Phone: [facility] 02-24-2024 11:25-0400 Body height 160.2 cm Sandeep Lenz MD Work Phone: [facility] 02-24-2024 11:25-0400 Body mass index (BMI) [Ratio] 23.81 kg/m2 Sandeep Lenz MD Work Phone: [facility] 02-24-2024 11:25-0400 Body temperature 97.3 [degF] Sandeep Lenz MD Work Phone: [facility] 02-24-2024 11:25-0400 Body weight 61.1 kg Sandeep Lenz MD Work Phone: [facility] 02-24-2024 11:25-0400 Diastolic blood pressure 77 mm[Hg] Sandeep Lenz MD Work Phone: [facility] 02-24-2024 11:25-0400 Heart rate 63 /min Sandeep Lenz MD Work Phone: [facility] 02-24-2024 11:25-0400 Respiratory rate 16 /min Sandeep Lenz MD Work Phone: [facility] 02-24-2024 11:25-0400 SaO2% (BldA) [Mass fraction] 95 % Sandeep Lenz MD Work Phone: [facility] 02-24-2024 11:25-0400 Systolic blood pressure 155 mm[Hg] Sandeep Lenz MD Work Phone: [facility] 02-10-2024 13:22-0400 Body height 162.56 cm [facility] 02-10-2024 13:22-0400 Body mass index (BMI) [Ratio] 23.7 kg/m2 [facility] 02-10-2024 13:22-0400 Body temperature 99 [degF] [facility] 02-10-2024 13:22-0400 Body weight 62.73 kg [facility] 02-10-2024 13:22-0400 Diastolic blood pressure 80 mm[Hg] [facility] 02-10-2024 13:22-0400 Heart rate 66 /min [facility] 02-10-2024 13:22-0400 Respiratory rate 16 /min [facility] 02-10-2024 13:22-0400 SaO2% (BldA) [Mass fraction] 97 % [facility] 02-10-2024 13:22-0400 Systolic blood pressure 137 mm[Hg] [facility] 01-20-2024 15:20-0400 Body height 162.56 cm [facility] 01-20-2024 15:20-0400 Body mass index (BMI) [Ratio] 23.7 kg/m2 [facility] 01-20-2024 15:20-0400 Body temperature 97.4 [degF] [facility] 01-20-2024 15:20-0400 Body weight 62.76 kg [facility] 01-20-2024 15:20-0400 Diastolic blood pressure 79 mm[Hg] [facility] 01-20-2024 15:20-0400 Heart rate 73 /min [facility] 01-20-2024 15:20-0400 Respiratory rate 16 /min [facility] 01-20-2024 15:20-0400 SaO2% (BldA) [Mass fraction] 96 % [facility] 01-20-2024 15:20-0400 Systolic blood pressure 156 mm[Hg] [facility] 11-25-2023 14:38-0500 Body height 162.6 cm Sandeep Lenz MD Work Phone: [facility] 11-25-2023 14:38-0500 Body temperature 97.5 [degF] Sandeep Lenz MD Work Phone: [facility] 11-25-2023 14:38-0500 Body weight 63.9 kg Sandeep Lenz MD Work Phone: [facility] 11-25-2023 14:38-0500 Diastolic blood pressure 63 mm[Hg] Sandeep Lenz MD Work Phone: [facility] 11-25-2023 14:38-0500 Heart rate 70 /min Sandeep Lenz MD Work Phone: [facility] 11-25-2023 14:38-0500 Respiratory rate 18 /min Sandeep Lenz MD Work Phone: [facility] 11-25-2023 14:38-0500 SaO2% (BldA) [Mass fraction] 94 % Sandeep Lenz MD Work Phone: [facility] 11-25-2023 14:38-0500 Systolic blood pressure 144 mm[Hg] Sandeep Lenz MD Work Phone: [facility] 05-20-2023 15:10-0400 Body height 162.6 cm Sandeep Lenz MD Work Phone: [facility] 05-20-2023 15:10-0400 Body temperature 97.81 [degF] Sandeep Lenz MD Work Phone: [facility] 05-20-2023 15:10-0400 Body weight 58.88 kg Sandeep Lenz MD Work Phone: [facility] 05-20-2023 15:10-0400 Diastolic blood pressure 72 mm[Hg] Sandeep Lenz MD Work Phone: [facility] 05-20-2023 15:10-0400 Heart rate 68 /min Sandeep Lenz MD Work Phone: [facility] 05-20-2023 15:10-0400 Respiratory rate 16 /min Sandeep Lenz MD Work Phone: [facility] 05-20-2023 15:10-0400 SaO2% (BldA) [Mass fraction] 99 % Sandeep Lenz MD Work Phone: [facility] 05-20-2023 15:10-0400 Systolic blood pressure 168 mm[Hg] Sandeep Lenz MD Work Phone: [facility] 04-30-2023 14:20-0400 Body temperature 97.59 [degF] Chair Marcos Work Phone: [facility] 04-30-2023 14:20-0400 Diastolic blood pressure 72 mm[Hg] Chair Jessup Work Phone: [facility] 04-30-2023 14:20-0400 Heart rate 64 /min Chair Marcos Work Phone: [facility] 04-30-2023 14:20-0400 Respiratory rate 16 /min Chair Marcos Work Phone: [facility] 04-30-2023 14:20-0400 SaO2% (BldA) [Mass fraction] 98 % Chair Jessup Work Phone: [facility] 04-30-2023 14:20-0400 Systolic blood pressure 147 mm[Hg] Chair Jessup Work Phone: [facility] 04-29-2023 15:21-0400 Body height 162.6 cm Sandeep Lenz MD Work Phone: [facility] 04-29-2023 15:21-0400 Body temperature 97 [degF] Sandeep Lenz MD Work Phone: [facility] 04-29-2023 15:21-0400 Body weight 58.24 kg Sandeep Lenz MD Work Phone: [facility] 04-29-2023 15:21-0400 Diastolic blood pressure 66 mm[Hg] Sandeep Lenz MD Work Phone: [facility] 04-29-2023 15:21-0400 Heart rate 66 /min Sandeep Lenz MD Work Phone: [facility] 04-29-2023 15:21-0400 Respiratory rate 16 /min Sandeep Lenz MD Work Phone: [facility] 04-29-2023 15:21-0400 SaO2% (BldA) [Mass fraction] 96 % Sandeep Lenz MD Work Phone: [facility] 04-29-2023 15:21-0400 Systolic blood pressure 153 mm[Hg] Sandeep Lenz MD Work Phone: [facility] 05-19-2022 11:30-0400 Diastolic blood pressure 80 [...] 162.6 cm Sandeep Lenz MD Work Phone: [facility] 01-08-2022 13:03-0400 Body temperature 97.39 [degF] Sandeep Lenz MD Work Phone: [facility] 01-08-2022 13:03-0400 Body weight 64.23 kg Sandeep Lenz MD Work Phone: [facility] 01-08-2022 13:03-0400 Diastolic blood pressure 69 mm[Hg] Sandeep Lenz MD Work Phone: [facility] 01-08-2022 13:03-0400 Heart rate 68 /min Sandeep Lenz MD Work Phone: [facility] 01-08-2022 13:03-0400 Respiratory rate 16 /min Sandeep Lenz MD Work Phone: [facility] 01-08-2022 13:03-0400 SaO2% (BldA) [Mass fraction] 97 % Sandeep Lenz MD Work Phone: [facility] 01-08-2022 13:03-0400 Systolic blood pressure 150 mm[Hg] Sandeep Lenz MD Work Phone: [facility] 11-11-2021 13:00-0500 Diastolic blood pressure 69 mm[Hg] MD Eduardo Sharpe Work Phone: [facility] 11-11-2021 13:00-0500 Heart rate 65 /min MD Eduardo Sharpe Work Phone: [facility] 11-11-2021 13:00-0500 Respiratory rate 16 /min MD Eduardo Sharpe Work Phone: [facility] 11-11-2021 13:00-0500 SaO2% (BldA) [Mass fraction] 96 % MD Eduardo Sharpe Work Phone: [facility] 11-11-2021 13:00-0500 Systolic blood pressure 129 mm[Hg] MD Eduardo Sharpe Work Phone: [facility] 11-11-2021 12:00-0500 Body temperature 98 [degF] MD Eduardo Sharpe Work Phone: [facility] 11-11-2021 06:00-0500 Body weight 63 kg MD Eduardo Sharpe Work Phone: [facility] 11-10-2021 12:59-0500 Body height 163.83 cm MD Eduardo Sharpe Work Phone: [facility] 11-09-2021 18:45-0500 Body mass index (BMI) [Ratio] 23.8 kg/m2 MD Eduardo Sharpe Work Phone: [facility] Encounters Encounter Date Encounter Type Care Provider Facility Start: 07-16-2024 End: 07-16-2024 ambulatory MD Eduardo Sharpe Work Phone: [facility] Work Phone: Start: 07-16-2024 End: 07-16-2024 Patient encounter procedure MD Eduardo Sharpe Work Phone: [facility] Nephrology Jovani Work Phone: Start: 05-26-2024 Non-patient / Non-visit MD Carlos Sharpe Work Phone: [facility] G[facility] Work Phone: Start: 05-26-2024 End: 05-26-2024 Admission to same day surgery center MD Eduardo Sharpe Work Phone: [facility] Work Phone: Start: 05-26-2024 End: 05-26-2024 ambulatory MD Eduardo Sharpe Work Phone: [facility] Work Phone: Start: 05-05-2024 Telephone encounter Re kelly DO Work Phone: [facility] [place] Comment on above: Schedule Surgery Start: 04-23-2024 End: 04-23-2024 ambulatory EDUARDO M Y Facility:[facility] Start: 04-20-2024 Telephone encounter Clemente Hull Hematology/Oncology Comment on above: Results; repeat CBC for H/H Start: 04-20-2024 End: 04-20-2024 ambulatory EDUARDO M Y Facility:[facility] Start: 04-17-2024 End: 04-17-2024 ambulatory EDUARDO M Y Facility:[facility] Start: 04-16-2024 End: 04-17-2024 ambulatory EDUARDO M HOY Facility:[facility] Start: 04-14-2024 End: 04-14-2024 ambulatory EDUARDO M Y Facility:[facility] Start: 04-03-2024 Telephone encounter Kevin ni RN Hematology/Oncology Start: 04-02-2024 Orders Only Barrera stoll MD Work Phone: Angio Comment on above: Abnormal kidney func tion (Primary Dx) Renal biopsy Start: 04-01-2024 Telephone encounter Sandeep bazan MD Work Phone: [facility] Comment on above: Appointment Confirma tion Start: 03-27-2024 End: 06-10-2024 Telephone encounter Sandeep Lenz MD Work Phone: [facility] Start: 03-24-2024 End: 03-24-2024 ambulatory Sandeep Lenz [...] Work Phone: Hematology/Oncology Start: 03-20-2024 End: 03-20-2024 [facility] Facility:[facility] Start: 03-20-2024 End: 03-20-2024 Subsequent hospital visit by physician Arrival Time Radiology Work Phone: Radiology [facility] Comment on above: Multiple myeloma not having achieved remission (HCC) [C90.00] Start: 03-04-2024 Telephone encounter Sandeep bazan MD Work Phone: [facility] Start: 02-26-2024 End: 02-26-2024 [facility] Facility:[facility] Start: 02-24-2024 End: 02-24-2024 Office outpatient visit 40 minutes Sandeep Lenz MD Work Phone: Hematology/Oncology Comment on above: 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); Hypercalcemia; Stage 3 chronic kidney disease, unspecified whether stage 3a or 3b CKD (HCC); Malignant neoplasm of upper-outer quadrant of left breast in female, estrogen receptor positive (HCC) Start: 02-24-2024 End: 02-24-2024 [facility] Facility:[facility] Start: 02-19-2024 End: 02-19-2024 ambulatory [facility] Start: 02-10-2024 Telephone encounter Clemente Hull Hematology/Oncology Comment on above: Patient Update; Appo intment Start: 02-10-2024 End: 02-10-2024 ambulatory [facility] Work Phone: Start: 02-10-2024 End: 02-10-2024 Patient encounter procedure [facility] Nephrology Work Phone: Start: 02-03-2024 Non-patient / Non-visit [facility] Work Phone: Start: 01-20-2024 End: 01-20-2024 ambulatory [facility] Work Phone: Start: 01-20-2024 End: 01-20-2024 Patient encounter procedure [facility] Nephrology Work Phone: Start: 11-25-2023 End: 11-25-2023 [...] Hypercalcemia Start: 11-25-2023 End: 11-25-2023 ambulatory SANDEEP LENZ Facility:[facility] Start: 10-31-2023 Bamboo flowsheet Mark stout DO Work Phone: [facility] Start: 10-31-2023 Bamboo flowsheet Mark stout DO Work Phone: [facility] Start: 10-31-2023 End: 10-31-2023 ambulatory MARK ISABEL Not Available Start: 10-16-2023 End: 10-16-2023 ambulatory [facility] Start: 08-19-2023 Telephone encounter Clemente Hull Hematology/Oncology Comment on above: Results Start: 08-19-2023 End: 08-19-2023 ambulatory SANDEEP LENZ Facility:[facility] Start: 07-02-2023 End: 07-02-2023 ambulatory EDUARDO SHARPE Facility:[facility] Start: 06-05-2023 End: 06-05-2023 ambulatory Bala Hartman Other [employer] Other Start: 06-05-2023 Telephone encounter Bala Hartman [facility] Start: 05-21-2023 Telephone encounter Clemente Hull [...] encounter Sandeep bazan MD Work Phone: [facility] Comment on above: Referral Information [...] CKD (HCC) Start: 04-01-2023 End: 04-01-2023 ambulatory [facility] Start: 08-23-2022 End: 09-23-2022 ambulatory SHAIKH Barbara [...] 05-19-2022 Emergency department patient visit [facility] Emergency Triage, Treat and Transport Comment on above: Arrived Start: 05-09-2022 End: 05-10-2022 ambulatory EDUARDO SHARPE Facility:[facility] Start: 05-07-2022 End: 05-08-[address] EDAURDO SHARPE Facility:[facility] Start: 04-23-2022 End: 05-23-2022 ambulatory [...] encounter procedure Sandeep Lenz MD Work Phone: [facility] Comment on above: Malignant neoplasm o f upper-outer quadrant of left breast in female, estrogen receptor positive (HCC) (Primary Dx) Start: 01-05-2022 End: 01-06-2022 ambulatory SANDEEP LENZ Facility:[facility] Start: 12-27-2021 End: 12-27-2021 Patient encounter procedure MD Eduardo Sharpe Work Phone: [facility] Start: 12-22-2021 End: 01-19-[address] EDUARDO SHARPE Facility:[facility] Start: 11-30-2021 End: 11-30-2021 ambulatory Brayden Hernandez Other [facility] [employer] Other Start: 11-30-2021 Office outpatient vi sit 15 minutes Brayden Hernandez [facility] Neurosurgery Start: 11-21-2021 End: 12-21-2021 ambulatory SHAIKH Barbara AGUIAR Facility:[facility] Start: 11-17-2021 End: 11-17-2021 Patient encounter procedure MD Eduardo Sharpe Work Phone: [facility] Start: 11-09-2021 End: 11-11-2021 Evaluation and management of inpatient MD Eduardo Sharpe Work Phone: [facility] [place] [facility] Start: 11-09-2021 End: 11-09-2021 ambulatory [...] DO Work Phone: Start: 10-31-2023 End: 10-31-2023 [facility] medical xm&eval anastaciae new pt 1/> vst Age-related nuclear cataract [...] Author Start: 04-14-2027 Diabetes Screening Diabetes Screening [facility] Start: 02-23-2027 Diabetes Screening Diabetes Screening [facility] Start: 11-24-2026 Diabetes Screening Diabetes Screening [facility] Start: 08-19-2026 Diabetes Screening Diabetes Screening [facility] Start: 05-20-2026 DIABETES SCREEN DIABETES SCREEN [facility] Start: 05-20-2026 Diabetes Screening Diabetes Screening [facility] Start: 04-30-2026 DIABETES SCREEN DIABETES SCREEN [facility] Start: 04-29-2026 DIABETES SCREEN DIABETES SCREEN [facility] Start: 04-23-2025 Complete blood count Hemoglobin/Hematocrit [facility] Start: 04-20-2025 Complete blood count Hemoglobin/Hematocrit [facility] Start: 04-14-2025 Creatinine measurement Serum Creatinine [facility] Start: 02-23-2025 Complete blood count Hemoglobin/Hematocrit [facility] Start: 02-23-2025 Creatinine measurement Serum Creatinine [facility] Start: 01-08-2025 DIABETES SCREEN DIABETES SCREEN [facility] Start: 11-24-2024 End: 02-23-2025 Cancer Ag 15-3 [Units/volume] in Serum or Plasma CA 15-3 BLD Lab Routine Malignant neoplasm of upper-outer quadrant of left breast in female, estrogen receptor positive (HCC) Breast screening Expected: 11/24/2024 (Approximate), Expires: 02/23/2025 [facility] Work Phone: Comment on above: Expected: 11/24/2024 (Approximate), Expi res: 02/23/2025 Start: 11-24-2024 End: 02-23-2025 Cancer Ag 27-29 [Units/volume] in Serum or Plasma CA 27.29 BLOOD Lab Routine Malignant neoplasm of upper-outer quadrant of left breast in female, estrogen receptor positive (HCC) Breast screening Expected: 11/24/2024 (Approximate), Expires: 02/23/2025 [facility] Work Phone: Comment on above: Expected: 11/24/2024 (Approximate), Expi res: 02/23/2025 Start: 11-24-2024 End: 02-23-2025 CBC W Auto Differential panel - Blood CBC + DIFF Lab Routine Malignant neoplasm of upper-outer quadrant of left breast in female, estrogen receptor positive (HCC) Breast screening Expected: 11/24/2024 (Approximate), Expires: 02/23/2025 [facility] Work Phone: Comment on above: Expected: 11/24/2024 (Approximate), Expi res: 02/23/2025 Start: 11-24-2024 Complete blood count Hemoglobin/Hematocrit [facility] Start: 11-24-2024 End: 02-23-2025 Comprehensive metabolic 2000 panel - Serum or Plasma COMP METABOLIC PANEL Lab Routine Malignant neoplasm of upper-outer quadrant of left breast in female, estrogen receptor positive (HCC) Breast screening Expected: 11/24/2024 (Approximate), Expires: 02/23/2025 [facility] Work Phone: Comment on above: Expected: 11/24/2024 (Approximate), Expi res: 02/23/2025 Start: 11-24-2024 Creatinine measurement Serum Creatinine [facility] Start: 11-23-2024 End: 11-23-2024 Follow-up encounter 11/23/2024 11:00 AM EST Visit (SP) Office Hematology/Oncology [address] [place] [address] [address] [place], [place] [address] aSndeep Lenz MD [address] [place] [address] 1 year follow up with lab Hematology/Oncology Comment on above: 1 year follow up with lab Start: 11-23-2024 End: 11-23-2024 Patient encounter procedure 11/23/2024 10:45 AM EST Office Visit [facility] [address] [place] [address] [address] [place], [place] [address] 1 year follow up with lab [facility] Comment on above: 1 year follow up with lab Start: 10-27-2024 End: 12-24-2024 MG Breast Screening SHANNEN SCREENING Radiology Routine Malignant neoplasm of upper-outer quadrant of left breast in female, estrogen receptor positive (HCC) Breast screening Encounter for screening mammogram for malignant neoplasm of breast Expected: 10/27/2024 (Approximate), Expires: 12/24/2024 [facility] Work Phone: Comment on above: Expected: 10/27/2024 (Approximate), Expi res: 12/24/2024 Start: 08-19-2024 Hemoglobin/Hematocrit Hemoglobin/Hematocrit [facility] Start: 08-19-2024 Serum Creatinine Serum Creatinine [facility] Start: 05-26-2024 [facility] Start: 05-24-2024 Covid-19 Vaccine ( season) Covid-19 Vaccine ( season) [facility] Start: 05-24-2024 Influenza vaccination [facility] Start: 05-20-2024 HEMOGLOBIN/HEMATOCRIT HEMOGLOBIN/HEMATOCRIT [facility] Start: 05-20-2024 SERUM CREATININE SERUM CREATININE [facility] Start: 04-30-2024 HEMOGLOBIN/HEMATOCRIT HEMOGLOBIN/HEMATOCRIT [facility] Start: 04-30-2024 SERUM CREATININE SERUM CREATININE [facility] Start: 04-16-2024 End: 04-16-2024 Admission to same day surgery center 04/16/2024 11:00 AM EDT - 04/16/2024 12:06 PM EDT Surgery Angio [address] [place] [address] Primitivo Andrade MD [address] [place], [place] [id number] BIOPSY KIDNEY PERCUTANEOUS Angio Comment on above: BIOPSY KIDNEY PERCUTANEOUS Start: 04-16-2024 End: 04-16-2024 Renal biopsy prq trocar/needle BIOPSY KIDNEY PERCUTANEOUS Elevated LFTs 04/16/2024 11:00 AM EDT [facility] ANGIO HB6 Start: 04-16-2024 Subsequent hospital visit by physician 04/16/2024 11:00 AM EDT Hospital Encounter Angio [address] [place] [address] Primitivo Andrade MD [address] [place] [address] Elevated LFTs [R79.89] Angio Comment on above: Elevated LFTs [R79.89] Start: 04-02-2024 End: 07-02-2024 CBC panel - Blood by Automated count COMPLETE BLOOD COUNT Lab Routine Abnormal kidney function Expected: 04/02/2024, Expires: 07/02/2024 [facility] Work Phone: Comment on above: Expected: 04/02/2024, Expires: Start: 04-02-2024 End: 07-02-2024 PT panel - Platelet poor plasma by Coagulation assay PROTHROMBIN TIME Lab Routine Abnormal kidney function Expected: 04/02/2024, Expires: 07/02/2024 [facility] Comment on above: Expected: 04/02/2024, Expires: Start: 03-24-2024 End: 03-24-2024 ambulatory 03/24/2024 1:15 PM EDT [facility] Hematology/Oncology [address] [place] [address] [place] [place] [address] Sandeep Lenz MD [address] [place] [address] Rosenda called back and ok'd date and time change for this appt Hematology/Oncology Comment on above: Rosenda called back and ok'd date and ti me change for this appt Start: 03-17-2024 End: 03-17-2024 ambulatory 03/17/2024 2:45 PM EDT [facility] Hematology/Oncology [address] [place] [address] [address] [place], [place] [address] Sandeep Lenz MD [address] [place] [address] [address] [place], [place] [address] 15 day virtual visit for lab results Hematology/Oncology Comment on above: 15 day virtual visit for lab results Start: 02-24-2024 End: 02-23-2025 [id number] [Mass/volume] in Serum or Plasma [facility] Work Phone: Comment on above: Expected: 02/24/2024, Expires: Start: 02-24-2024 End: 02-23-2025 MONOCLONAL PROT 24 UR W/INTERP MONOCLONAL PROT 24 UR W/INTERP Lab Routine MGUS (monoclonal gammopathy of unknown significance) Expected: 02/24/2024, Expires: 02/23/2025 [facility] Comment on above: Expected: 02/24/2024, Expires: Start: 02-24-2024 End: 02-23-2025 MONOCLONAL PROTEIN, SERUM (BLOOD) [facility] Comment on above: Expected: 02/24/2024, Expires: Start: 02-24-2024 End: 02-23-2025 PROT ELEC UR 24HR W/M SPIKE AND INTERP PROT ELEC UR 24HR W/M SPIKE AND INTERP Lab Routine MGUS (monoclonal gammopathy of unknown significance) Expected: 02/24/2024, Expires: 02/23/2025 [facility] Comment on above: Expected: 02/24/2024, Expires: Start: 02-24-2024 End: 02-23-2025 PROTEIN ELECTROPHORESIS SERUM W/INTERP [facility] Comment on above: Expected: 02/24/2024, Expires: Start: 02-24-2024 End: 02-24-2024 Follow-up encounter 02/24/2024 11:30 AM EDT Visit (SP) Office Hematology/Oncology [address] [place] [address] [address] [place], [place] [address] Sandeep Lenz MD [address] [place] [address] [address] [place], [place] [address] follow up with lab Hematology/Oncology Comment on above: follow up with lab Start: 02-24-2024 End: 02-24-2024 Patient encounter procedure 02/24/2024 11:15 AM EDT Office Visit [facility] [address] [place] [address] lab [facility] Comment on above: lab Start: 11-28-2023 End: 11-28-2023 Patient encounter procedure 11/28/2023 8:10 AM EST Procedure Visit [facility] Mark Isabel, DO [address] [place] [address] [facility] Start: 11-25-2023 End: 02-24-2024 Cancer Ag 27-29 [Units/volume] in Serum or Plasma CA 27.29 BLOOD Lab Routine Stage 3 chronic kidney disease, unspecified whether stage 3a or 3b CKD (HCC) Malignant neoplasm of upper-outer quadrant of left breast in female, estrogen receptor positive (HCC) Breast screening Encounter for screening mammogram for malignant neoplasm of breast Hypercalcemia Expected: 11/25/2023, Expires: 02/24/2024 [facility] [employer] Work Phone: Comment on above: Expected: 11/25/2023, [...] of breast Hypercalcemia Expected: 11/25/2023, Expires: 02/24/2024 [employer] [facility] [employer] Work Phone: Comment on above: Expected: 11/25/2023, [...] of breast Hypercalcemia Expected: 11/25/2023, Expires: 02/24/2024 [facility] Work Phone: Comment on above: Expected: 11/25/2023, Expires: 4 Start: 09-23-2023 Advance Directive Discussion Advance Directive Discussion [facility] Start: 09-23-2023 Behavioral Health Screening Behavioral Health Screening [facility] Start: 09-23-2023 Depression Assessment Depression Assessment [facility] Start: 05-24-2023 Covid-19 Vaccine () Covid-19 Vaccine () [facility] Start: 05-24-2023 Influenza vaccination [facility] Start: 04-29-2023 End: 06-29-2023 Parathyrin related protein [Moles/volume] in Serum or Plasma PTH RELATED PEPTIDE Lab Routine Malignant neoplasm of upper-outer quadrant of left breast in female, estrogen receptor positive (HCC) Hypercalcemia Expected: 04/29/2023, Expires: 06/29/2023 [facility] Work Phone: Comment on above: Expected: 04/29/2023, Expires: 3 Start: 04-29-2023 End: 06-29-2023 PTH, INTACT (WITHOUT CALCIUM) PTH, INTACT (WITHOUT CALCIUM) Lab Routine Malignant neoplasm of upper-outer quadrant of left breast in female, estrogen receptor positive (HCC) Hypercalcemia Expected: 04/29/2023, Expires: 06/29/2023 [facility] Work Phone: Comment on above: Expected: 04/29/2023, Expires: 3 Start: 09-23-2022 ADVANCE DIRECTIVE DISCUSSION ADVANCE DIRECTIVE DISCUSSION [facility] Start: 09-23-2022 DEPRESSION ASSESSMENT DEPRESSION ASSESSMENT [facility] Start: 07-09-2022 End: 09-08-2022 25-hydroxyvitamin D3 [Mass/volume] in Serum or Plasma VITAMIN D 25 HYDROXY Lab Routine Malignant neoplasm of upper-outer quadrant of left breast in female, estrogen receptor positive (HCC) Encounter for screening for osteoporosis Hypercalcemia Expected: 07/09/2022 (Approximate), Expires: 09/08/2022 [facility] Work Phone: Comment on above: Expected: 07/09/2022 (Approximate), Expi res: 09/08/2022 Start: 07-09-2022 End: 09-08-2022 Calcitriol [Mass/volume] in Serum or Plasma VITAMIN D1 25-DIHYDR Lab Routine Malignant neoplasm of upper-outer quadrant of left breast in female, estrogen receptor positive (HCC) Encounter for screening for osteoporosis Expected: 07/09/2022 (Approximate), Expires: 09/08/2022 [facility] Work Phone: Comment on above: Expected: 07/09/2022 (Approximate), Expi res: 09/08/2022 Start: 07-09-2022 End: 06-30-2023 CBC W Auto Differential panel - Blood CBC + DIFF Lab Routine Malignant neoplasm of upper-outer quadrant of left breast in female, estrogen receptor positive (HCC) Encounter for screening for osteoporosis Expected: 07/09/2022 (Approximate), Expires: 06/30/2023 [facility] Work Phone: Comment on above: Expected: 07/09/2022 (Approximate), Expi res: 06/30/2023 Start: 07-09-2022 End: 06-30-2023 Comprehensive metabolic 2000 panel - Serum or Plasma COMP METABOLIC PANEL Lab Routine Malignant neoplasm of upper-outer quadrant of left breast in female, estrogen receptor positive (HCC) Encounter for screening for osteoporosis Expected: 07/09/2022 (Approximate), Expires: 06/30/2023 [facility] Work Phone: Comment on above: Expected: 07/09/2022 (Approximate), Expi res: 06/30/2023 Start: 06-23-2022 Influenza vaccination Influenza Vaccine (#1) [facility] Start: 05-24-2022 Influenza vaccination INFLUENZA (#1) [facility] Start: 09-23-2021 ADVANCE DIRECTIVE DISCUSSION ADVANCE DIRECTIVE DISCUSSION [facility] Start: 09-23-2021 DEPRESSION ASSESSMENT DEPRESSION ASSESSMENT [facility] Start: 03-10-2021 Adult depression screening assessment DEPRESSION SCREENING [facility] Start: 06-17-2019 Pneumococcal Vaccine: 65+ (2 - PPSV23 or PCV20) Pneumococcal Vaccine: 65+ (2 - PPSV23 or PCV20) [facility] Start: 06-17-2019 PNEUMOCOCCAL: 65+ (2 - PPSV23 if available, else PCV20) PNEUMOCOCCAL: 65+ (2 - PPSV23 if available, else PCV20) [facility] Start: 06-17-2019 PNEUMOCOCCAL: 65+ (2 - PPSV23 or PCV20) PNEUMOCOCCAL: 65+ (2 - PPSV23 or PCV20) [facility] Start: 2009 BONE DENSITY BONE DENSITY [facility] Start: 2009 Bone Density Screening Bone Density Screening [facility] Start: 2009 Pneumococcal vaccination Pneumococcal Vaccine(s) (65+ yrs) (1 - PCV) [facility] Start: 2009 PNEUMOVAX AGE 65 AND OVER WITH 5YR LOOKBACK (#1) PNEUMOVAX AGE 65 AND OVER WITH 5YR LOOKBACK (#1) [facility] Start: 2009 [facility] Start: 2004 RSV Vaccine (1 - 1-dose 60+ series) RSV Vaccine (1 - 1-dose 60+ series) [facility] Start: 1994 Shingles (RZV) Vaccine (1 of 2) Shingles (RZV) Vaccine (1 of 2) [facility] Start: 1994 SHINGRIX VACCINE (1 of 2) SHINGRIX VACCINE (1 of 2) [facility] Start: 1963 Urine microalbumin profile [facility] Start: 1962 ANNUAL PCP TEAM CHRONIC DISEASE VISIT ANNUAL PCP TEAM CHRONIC DISEASE VISIT [facility] Start: 1962 Anxiety Screening Anxiety Screening [facility] Start: 1962 Depression Screening Depression Screening [facility] Start: 1962 HEPATITIS C SCREENING HEPATITIS C SCREENING [facility] Start: 1962 Hepatitis C screening Hepatitis C Antibody [facility] Start: 1962 Tetanus + diphtheria + acellular pertussis vaccine (product) Tdap Booster [facility] Start: 1956 COVID-19 VACCINE (1) COVID-19 VACCINE (1) [facility] Start: 04-09-1945 COVID-19 Vaccine (#1) COVID-19 Vaccine (#1) [facility] End: 05-28-2024 Bone &/joint imaging whole body NM BONE WHOLE BODY Radiology Routine Malignant neoplasm of breast in female, estrogen receptor positive, unspecified laterality, unspecified site of breast (HCC) 1 Occurrences starting 04/29/2023 until 05/28/2024 [facility] Work Phone: Comment on above: 1 Occurrences starting 04/29/2023 until 05/28/2024 End: 05-19-2024 Calcium [Mass/volume] in Serum or Plasma CALCIUM TOTAL BLD Lab Routine Hypercalcemia Malignant neoplasm of upper-outer quadrant of left breast in female, estrogen receptor positive (HCC) Stage 3 chronic kidney disease, unspecified whether stage 3a or 3b CKD (HCC) Every 6 weeks for 9 Occurrences starting 05/20/2023 until 05/19/2024 [facility] Work Phone: Comment on above: Every [...] Occurrences starting 05/20/2023 until 05/19/2024, 1 completed [facility] Work Phone: Comment on above: Every [...] Occurrences starting 05/20/2023 until 05/19/2024, 1 completed [facility] Work Phone: Comment on above: Every [...] Occurrences starting 05/20/2023 until 05/19/2024, 1 completed [facility] Work Phone: Comment on above: Every 6 weeks for 9 Occurrences starting 05/20/2023 until 05/19/2024, 1 completed End: 04-03-2025 EGD DIAGNOSTIC EGD DIAGNOSTIC Endoscopy Routine Abnormal gastrointestinal PET scan Gastritis, presence of bleeding unspecified, unspecified chronicity, unspecified gastritis type 1 Occurrences starting 04/03/2024 until 04/03/2025 [facility] Work Phone: Comment on above: 1 Occurrences starting 04/03/2024 until 04/03/2025 Guidance for percutaneous biopsy of Kidney IMAGING GUIDED BIOPSY RENAL Radiology Routine 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) Ordered: 03/26/2024 [facility] Work Phone: Comment on above: Ordered: 03/26/2024 Immunofixation for Urine [facility] Immunofixation for Urine [facility] Parathyrin related protein [Moles/volume] in Serum or Plasma PTH RELATED PEPTIDE Lab Routine Malignant neoplasm of upper-outer quadrant of left breast in female, estrogen receptor positive (HCC) Hypercalcemia 04/30/2023 3:55 PM EDT [facility] Work Phone: Patient Education [facility] Work Phone: Patient referral [facility] Work Phone: Renal function 1999 panel - Serum or Plasma [facility] Renal function 1999 panel - Serum or Plasma [facility] [facility] Immunizations Immunization Date Immunization Notes Care Provider Fa cilijeffrey 10-19-2022 influenza, high dose seasonal, preservative-free Clemente Srivastava RN [facility] 07-11-2022 pneumococcal polysaccharide vaccine, 23 valent Clemente Srivastava RN [facility] 07-11-2022 influenza virus vacc ine, unspecified formulation Sandeep Lenz MD Work Phone: [facility] 07-07-2021 influenza, high-dose , quadrivalent vaccine (FLUZONE HIGH DOSE QUADRIVALENT) Sandeep Lenz MD Work Phone: [facility] 07-07-2021 unknown vaccine or i mmune globulin Clemente Srivastava RN [facility] 06-12-2021 influenza, high dose seasonal, preservative-free Clemente Srivastava RN [facility] 06-22-2020 influenza, high dose seasonal, preservative-free Sandeep Lenz MD Work Phone: [facility] 06-15-2020 Seasonal trivalent influenza vaccine, adjuvanted, preservative free Sandeep Lenz MD Work Phone: [facility] 06-17-2018 influenza, high dose seasonal, preservative-free Sandeep Lenz MD Work Phone: [facility] 06-17-2018 pneumococcal conjuga te vaccine, 13 orville Lenz MD Work Phone: [facility] 07-09-2017 influenza, high dose seasonal, preservative-free Sandeep Lenz MD Work Phone: [facility] 07-09-2017 pneumococcal conjuga te vaccine, 13 orville Lenz MD Work Phone: [facility] Payers Date Payer Category Payer Self-pay [id number] 2024 Unknown [id number] 2014 Unknown MEDICA RE SUPPLEMENT [id number] 2014-Present [phone] [address] [address] [place] [address] Indemnity [id number] 2014 Unknown [id number] 2009 Medicare MEDICARE MEDICAR E A AND B [id number] 2009-Present [phone] [address] [address] [place] [address] Medicare [id number] 2009 Medicare [id number] .[id number] 1959 Medicare [id number] 1959 Unknown [id number] 1959 Unknown [id number] 1944 Unknown [id number] 2.16.840.1.142840.3.579.2.647 1944 Unknown [id number] 2.16.840.1.937505.3.579.2.732 1944 Unknown [id number] 2.16.840.1.932435.3.579.2.593 1944 Unknown [id number] 2.16.840.1.626669.3.579.2.593 1944 Unknown [id number] 2.16.840.1.977985.3.579.2.593 1944 Unknown [id number] 2.16.840.1.434559.3.579.2.593 1944 Unknown [id number] 2.16.840.1.233785.3.579.2.593 1944 Unknown [id number] 2.16.840.1.606598.3.579.2.593 1944 Unknown [id number] 2.16.840.1.938253.3.579.2.593 1944 Unknown [id number] 2.16.840.1.349639.3.579.2.593 1944 Unknown [id number] 2.16.840.1.693838.3.579.2.593 1944 Unknown [id number] 2.16.840.1.013282.3.579.2.593 1944 Unknown [id number] 2.16.840.1.347368.3.579.2.593 1944 Unknown [id number] 2.16.840.1.044962.3.579.2.593 1944 Unknown [id number] 2.16.840.1.462929.3.579.2.593 1944 Unknown [id number] 2.16.840.1.254543.3.579.2.593 1944 Unknown [id number] 2.16.840.1.228425.3.579.2.593 1944 Unknown [id number] 2.16.840.1.505769.3.579.2.593 1944 Unknown [id number] 2.16.840.1.108915.3.579.2.593 1944 Unknown [id number] 2.16.840.1.705616.3.579.2.593 1944 Unknown [id number] 2.16.840.1.986433.3.579.2.593 1944 Unknown [id number] 2.16.840.1.410232.3.579.2.593 1944 Unknown [id number] 2.16.840.1.175912.3.579.2.593 1944 Unknown [id number] 2.16.840.1.965883.3.579.2.593 1944 Unknown [id number] 2.16.840.1.413055.3.579.2.593 1944 Unknown [id number] 2.16.840.1.743851.3.579.2.125 9 Medicare [id number] Unknown [id number] 2.16.840.1.705955.3.579.2.531 Social History Date Type Detail Facility Start: 11-10-2021 End: 05-26-2024 Tobacco smoking status NHIS Never smoked tobacco (finding) [facility] Start: 1945 Sex Assigned At Female F [facility] Start: 06-12-2018 End: 04-29-2023 Tobacco use and exposure Smokeless tobacco non-user [facility] Start: 01-08-2022 End: 11-25-2023 Alcohol intake Current drinker of alcohol (finding) [facility] Start: 06-12-2018 History SDOH Alcohol Comment very rare [facility] Start: 1945 Sex Assigned At Not on file C [facility] Start: 12-29-2021 End: 01-08-2022 Exposure to SARS-CoV-2 (event) Not sure [facility] Start: 04-29-2023 End: 03-24-2024 Sex Assigned At [facility] Tobacco smoking status NHIS Tobacco smoking consumption unknown [facility] Start: 04-29-2023 End: 03-24-2024 History of Social function [facility] Adult Depression Screening Assessment 0 [facility] NEGATED: Highlighted rowStart: NINF History of tobacco use Passive smoker [facility] Goals Date Patient Goal Desired Activity /State Functional Status Date Assessment Result Facility 11-09-2021 Functional status Patient at Baseline [facility] Work Phone: Mental Status Date Assessment Result Facility 11-09-2021 Cognitive function Cognitive Sta tus Patient at Baseline [facility] Work Phone: Clinical Notes 09-16-2020 to 05-26-2024 Telephone Encounter - Sachin Marsh - 05/08/2024 2:23 PM EDTTelephone Encounter - Sachin Marsh - 05/08/2024 2:23 PM EDTTelephone Encounter - Sachin Marsh - 05/07/2024 1:29 PM EDT Note Date & Type Note Facility 05-26-2024 Procedure note [facility] 05-08-2024 Telephone encounter Note Final attempt left message on voicemail for daughter to call and schedule [facility] 05-08-2024 Miscellaneous Notes Final attempt left message on voicemail for daughter to call and schedule Left message on voicemail for patients daughter to call and schedule Call center calling for assistance with scheduling this patient. Called and LMOM for patient's daughter Janki - [phone] - patient needs to be scheduled with [facility]. documented in this encounter [facility] 05-07-2024 Telephone encounter Note Left message on voicemail for patients daughter to call and schedule [facility] 05-05-2024 Telephone encounter Note Call center calling for assistance with scheduling this patient. Called and LMOM for patient's daughter Janki - [phone] - patient needs to be scheduled with [facility]. [facility] 04-21-2024 Telephone encounter Note Rosenda Prado updated and agrees to bring in Saturday or for recheck. Prefers to walk in with their schedules. Clemente Srivastava RN [facility] 04-21-2024 Miscellaneous Notes Roesnda Prado updated and agrees to bring in [...] to establish stability. documented in this encounter [facility] 04-20-2024 Telephone encounter Note CBC stable, let's recheck on Saturday or , Please. [facility] 04-20-2024 Telephone encounter Note [place]: please review today's lab and advise Clemente Srivastava RN [facility] 04-20-2024 Telephone encounter Note Pt daughter aware [...] review and update plan Clemente Srivastava RN [facility] 04-20-2024 Telephone encounter Note ----- Message from [...] hemoglobin check this morning to establish stability. [facility] 04-17-2024 Note HNO ID: [id number] Author: RE WOLF RT(R) Service: ? Author Type: Business Continuity Planning Director Type: Progress Notes Filed: 04/17/2024 10:08 Note [...] PATIENT PRESENTS WITH AN IMPLANTABLE OR ATTACHED RESIDENTIAL REAL ESTATE SALES MANAGER: No RADIOLOGY DEPARTMENT: CT; Exam(s) Completed: Abdomen/Pelvis PERIPHERAL IV DATA: Not applicable SIGNED BY: RT Nneka(R) April 17, 2024 10:08 AM [facility] 04-17-2024 Note HNO ID: [id number] Author: SAGAR LINO DO Service: Nephrology Author [...] morning to establish stability. Sagar Lino DO, [facility] Kidney Medicine PGY V 04/17/2024 6:40 AM [facility] 04-16-2024 Note HNO ID: [id number] Author: FAN TAYLOR MD Service: Nephrology Author Type: Fellow Type: Plan of Care Filed: 04/16/2024 22:44 Note Text: Significant hemoglobin drop (from 12.3 initial to 10.4 now). Low threshold for imaging so CT abd AND pelvis WO contrast ordered. Will follow-up on results. Fan Chambers MD Nephrology Fellow PGY-IV [facility] 04-08-2024 Telephone encounter Note Patient and family have been called X 3 for scheduling EGD... just FYI [facility] 04-08-2024 Miscellaneous Notes Patient and family have [...] Ashlie Lugo Tiffany23 hours ago (10:51 AM) JIL Just sent the triage to main also [facility] Main id say ;) thank you. Images from the original note were not included. Sandeep Lenz MD [facility] Clerical Pool; [facility] Triage Pool Hello - entered orders for kidney biopsy for MGUS. Also may need to see a conversion worker to consider a EGD for the PET results showing distal gastric uptake. Referral for this placed also. documented in this encounter [facility] 04-08-2024 Telephone encounter Note I did call the daughter Rosenda [facility] 04-08-2024 Telephone encounter Note Hi sachin can you please call Dtr to see if she will be able to schedule appt [facility] 04-08-2024 Telephone encounter Note Left message on voicemail for Rosenda to call and schedule [facility] 04-08-2024 Miscellaneous Notes Left message on voicemail [...] in the demographics tab Kevin Brandon RN documented in this encounter [facility] 04-06-2024 Telephone encounter Note Left message on voicemail for Rosenda to call and schedule [facility] 04-03-2024 Telephone encounter Note Call received from [...] in the demographics tab Kevin Brandon RN [facility] 04-03-2024 Telephone encounter Note Left message on voicemail for patient to call and schedule [facility] 04-03-2024 Telephone encounter Note Left message on voicemail for patient to call and schedule [facility] 04-03-2024 Telephone encounter Note Images from the original note were not included. Schedulers please see attached feed to schedule EGD as able. I'm not sure if this is supposed to come to you ladies or elsewhere. Thank you Aileen Burleson RN Please assist with scheduling EGD with first available provider. Re Ballesteros Jr., DO [place] Ashlie Fransisco Sec, Kemuhvv87 hours ago (10:51 AM) JK Just sent the triage to main [facility] 04-02-2024 Telephone encounter Note [facility] [place] Kidney Biopsy is Approved to be Done [...] medications for this visit. ALLERGIES Allergen Reactions Ungrtfl-Sff-Pfc Red* Unknown Other reaction(s): AOF FILMS SENT TO WORKSTATION: GUIDELINES FOR HOLDING ANTI-PLATELET AND ANTI- COAGULATION THERAPY: Xarelto. This should be held 2 Doses prior to biopsy. NURSE SIGNATURE: Karla Alston RN DATE: April 02, 2024 TIME: 11:35 AM [facility] 04-02-2024 Miscellaneous Notes [facility] [place] Kidney Biopsy is Approved to be Done [...] medications for this visit. ALLERGIES Allergen Reactions Kipbrdk-Jnl-Nuw Red* Unknown Other reaction(s): AOF FILMS SENT TO WORKSTATION: GUIDELINES FOR HOLDING ANTI-PLATELET AND ANTI- COAGULATION THERAPY: Xarelto. This should be held 2 Doses prior to biopsy. NURSE SIGNATURE: Karla Alston RN DATE: April 02, 2024 TIME: 11:35 AM Summary: Renal biopsy RADIOLOGY CALL CENTER INTAKE DATE: 04/02/2024 TIME: 10:49am REQUESTING STAFF: Sandeep Lenz MD PHONE/PAGER: [phone] SPECIFICS OF THE REQUEST: Renal Biopsy SPECIAL REQUESTS: TISSUE SAMPLE, LABWORK: N/A IS THIS REQUEST PART OF A RESEARCH PROTOCOL: No MEDICAL DIAGNOSIS: MGUS (monoclonal gammopathy of unknown significance) TYPE AND DATE OF THE EXAM THAT IS THE BASIS OF THE REQUEST: PET 03/20/2024 IMAGING: [facility] Note to all persons requesting biopsies: All biopsy requests will be scheduled as quickly as possible, based on the clinical urgency, availability of appointment times, the need to hold anti-thrombolytic therapy (aspirin, blood thinners) and the patient s schedule, including the need for an available jukebox route driver. If a percutaneous biopsy or drainage is not felt to be safe or an alternative method for establishing a diagnosis is possible, this will be discussed directly with the requesting physician. documented in this encounter [facility] 04-02-2024 Telephone encounter Note Summary: Renal biopsy RADIOLOGY CALL CENTER INTAKE DATE: 04/02/2024 TIME: 10:49am REQUESTING STAFF: Sandeep Lenz MD PHONE/PAGER: [phone] SPECIFICS OF THE REQUEST: Renal Biopsy SPECIAL REQUESTS: TISSUE SAMPLE, LABWORK: N/A IS THIS REQUEST PART OF A RESEARCH PROTOCOL: No MEDICAL DIAGNOSIS: MGUS (monoclonal gammopathy of unknown significance) TYPE AND DATE OF THE EXAM THAT IS THE BASIS OF THE REQUEST: PET 03/20/2024 IMAGING: [facility] Note to all persons requesting biopsies: All biopsy requests will be scheduled as quickly as possible, based on the clinical urgency, availability of appointment times, the need to hold anti-thrombolytic therapy (aspirin, blood thinners) and the patient s schedule, including the need for an available jukebox route driver. If a percutaneous biopsy or drainage is not felt to be safe or an alternative method for establishing a diagnosis is possible, this will be discussed directly with the requesting physician. [facility] 04-02-2024 Telephone encounter Note Main id say ;) thank you. [facility] 04-01-2024 Telephone encounter Note Images from the original note were not included. Sandeep Lenz MD [facility] Clerical Pool; [facility] Triage Pool Hello - entered orders for kidney biopsy for MGUS. Also may need to see a conversion worker to consider a EGD for the PET results showing distal gastric uptake. Referral for this placed also. [facility] 07-05-2024 Telephone encounter Note ----- Message from Sandeep Lenz MD sent at 03/26/2024 10:45 AM EDT ----- Hi Andrew - your PET CT didn't show any hole or lytic lesions in the bones. So I think we should plan to do a kidney biopsy to determine the imapct of your abnormal protein on the kidneys. [facility] Work Phone: 03-27-2024 Miscellaneous Notes ----- Message [...] in the [facility] or locally here in [place]. Images from the original note were not included. Sandeep Lenz MD [facility] Clerical Pool; [facility] Triage Pool Hello - entered orders for kidney biopsy for MGUS. Also may need to see a conversion worker to consider a EGD for the PET results showing distal gastric uptake. Referral for this placed also. documented in this encounter [facility] 03-27-2024 Telephone encounter Note I called and spoke with the Patient's granddaughter. I am waiting on a call back from the Patient to see if the Patient would like to be scheduled with Gastro either in the [facility] or locally here in [place]. [facility] 03-27-2024 Telephone encounter Note Images from the original note were not included. Sandeep Lenz MD [facility] Clerical Pool; [facility] Triage Pool Hello - entered orders for kidney biopsy for MGUS. Also may need to see a conversion worker to consider a EGD for the PET results showing distal gastric uptake. Referral for this placed also. 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 NAME: Andrew Barros CLINIC NO.: [id number] DATE OF SERVICE: March 24, 2024 (Eduardo) Some elements in this clinic note that are critical to medical decision making have been carefully reviewed and included from a prior clinic note dated: February 24, 2024 (Eduardo) Referring Provider: Eduardo Sharpe Additional Clinicians involved in Andrew Barros's care: VIRTUAL VISIT PROGRESS NOTE This is a virtual visit using [employer] Zoom Video Visit. It required patient- provider interaction for the medical decision making as documented below. I have communicated my name and active licensure. The patient's identity and physical location wereverified at the time of this visit. Either the patient or their legal labor union business representative has been informed of the risks and benefits of -- and alternatives to -- treatment through a remote evaluation andconsents to proceed with the evaluation remotely. DIAGNOSIS: History of Breast Cancer ASSESSMENT: 78 year old woman with Left breast upper outer quadrant, invasive ductal carcinoma, ER postive, [place] positive, Her2 lauren negative; 1.6 cm x [...] 42.2 < 285, eGFR: 31, Creatinine: 1.67 [place]: 54.7, Lambda: 23.7, K/L Ratio: 2.31 Ig, IgA: 302, IgM: 426 M-protein concentration: 0.53 08/28/2023 - Bilateral Mammogram Diagnostic category 2 Benign 05/02/2023 - Bone Scan: Negative for osseous mets. 11/14/2021 - Had intracranial hemorrhage with intracerebral hematoma in the right tempora lobe due to HTN and warfarin. 04/24/2021 - DEXA scan World Health Organization classification: Normal-low fracture risk. 01/04/2021 - Mammograms at [facility] Bi-Rads 2 benign. 09/26/2018-11/25/2023 - Arimidex 09/10/2018 [...] found to have an M-spike by her appeals representative, Dr. Rojo. We discussed potential diagnoses and [...] No exam ____ ALLERGIES: ALLERGIES Allergen Reactions Pkewlcf-Pma-Rdx Red* Unknown Other reaction(s): AOF MEDICATIONS: anastrozole [...] CPE Hematology and Oncology Services Provided at: [facility], [place], [place] Scribe Attestation: This note was scribed by Karla Perez on March 24, 2024 under the direction and supervision of Dr. Sandeep Lenz. I attest that all of the information documented is correct to the best of my knowledge. Provider Attestation: I, Sandeep Lenz MD, attest that all information documented by the above scribe is correct, and was supervised by me and under my direction. CC: Eduardo Sharpe MD [id number] [facility] [id number] [facility] NoteHNO ID: [id number] Author: SANDEEP LENZ MD Service: ? Author Type: Physician Type: Progress Notes Filed: 03/26/2024 11:16 Note Text: NAME: Andrew Barros CLINIC NO.: [id number] DATE OF SERVICE: March 24, 2024 (Eduardo) Some elements in this clinic note that are critical to medical decision making have been carefully reviewed and included from a prior clinic note dated: February 24, 2024 (Eduardo) Referring Provider: Eduardo Sharpe Additional Clinicians involved in Andrew Barros's care: VIRTUAL VISIT PROGRESS NOTE This is a virtual visit using [employer] Video Visit. It required patient-provider interaction for the medical decision making as documented below. I have communicated my name and active licensure. The patient's identity and physical location were verified at the time of this visit. Either the patient or their legal labor union business representative has been informed of the risks and benefits of -- and alternatives to -- treatment through a remote evaluation and consents to proceed with the evaluation remotely. DIAGNOSIS: History of Breast Cancer ASSESSMENT: 78 year old woman with Left breast upper outer quadrant, invasive ductal carcinoma, ER postive, WI positive, Her2 lauren negative; 1.6 cm x [...] 42.2 < 285, eGFR: 31, Creatinine: 1.67 [place]: 54.7, Lambda: 23.7, K/L Ratio: 2.31 Ig, IgA: 302, IgM: 426 M-protein concentration: 0.53 08/28/2023 - Bilateral Mammogram Diagnostic category 2 Benign 05/02/2023 - Bone Scan: Negative for osseous mets. 11/14/2021 - Had intracranial hemorrhage with intracerebral hematoma in the right tempora lobe due to HTN and warfarin. 04/24/2021 - DEXA scan World Health Organization classification: Normal-low fracture risk. 01/04/2021 - Mammograms at [facility] Bi-Rads 2 benign. 09/26/2018-11/25/2023 - Arimidex 09/10/2018 [...] found to have an M-spike by her appeals representative, Dr. Rojo. We discussed potential diagnoses and [...] up until 3 mon (more content not included)...[facility]06-28-[facility] History of Present illness Narrative* Leif [...] PATIENT PRESENTS WITH AN IMPLANTABLE OR ATTACHED RESIDENTIAL REAL ESTATE SALES MANAGER: No CREATININE: Creatinine Date Value Ref Range [...] 1337 PATIENT DISCHARGED TO: Ambulatory patient, left [place] department area. A Diagnostic radioactive procedure has taken place, with no further precautions necessary other than routine body substance precautions. More information regarding radiation safety can be found usingthis link: [email or web address] 20Diagnostic%20Nuclear%20Medicine%20Procedures.pdf SIGNATURE: MINGO Campoverde) PATIENT NAME: Andrew Barros DATE: March 20, 2024 TIME: 2:25 PM PAGER/CONTACT #: documented in this encounterElyria [facility] Hospital06-28-2024 NoteHNO ID: [id number] Author: LEIF MOULTON RT(R) Service: ? Author [...] PATIENT PRESENTS WITH AN IMPLANTABLE OR ATTACHED RESIDENTIAL REAL ESTATE SALES MANAGER: No CREATININE: Creatinine Date Value Ref Range [...] 1337 PATIENT DISCHARGED TO: Ambulatory patient, left [place] department area. A Diagnostic radioactive procedure has taken place, with no further precautions necessary other than routine body substance precautions. More information regarding radiation safety can be found using this link: [email or web address] 20Diagnostic%20Nuclear%20Medicine%20Procedures.pdf SIGNATURE: Leif Yovanno, RT(R) PATIENT NAME: Andrew Barros DATE: March 20, 2024 TIME: 2:25 PM PAGER/CONTACT #:[facility]06-12-2024 Telephone encounter Note* Telephone Encounter - Jennifer Otero - 03/04/2024 1:[address] Perry: Patient had labs drawn on 02/25. Patient was scheduled for a phone visit with you on 03/17. We have rescheduled this phone visit to 03/24. Thank You, Jennifer Covington [facility]06-12-2024 Miscellaneous Notes* Telephone Encounter - Jennifer Otero - 03/04/2024 1:[address] Perry: Patient had labs drawn on 02/25. Patient was scheduled for a phone visit with you on 03/17. We have rescheduled this phone visit to 03/24. Thank You, Jennifer Covington documented in this encounterElyria Memorial Hospital06-03-2024 Instructions* Patient Instructions* Sandeep Lenz MD - 02/24/2024 11:46 AM EDT Labs today in addition to previously drawn Workup for MGUS. Needs 24 H urine collection also Virtual visit in 15 days. documented in this encounterElyria Memorial Hospital06-03-2024 Nurse Note* Arabella Plascencia MA - 02/24/2024 11:31 AM EDT Patient is here due to Portable Machine Cutter being concerned with abnormal blood work. Arabella Cotter MA [facility]06-03-[facility]24 Nurse Note* Arabella Cotter MA - 02/24/2024 11:31 AM EDT Patient is here due to Portable Machine Cutter being concerned with abnormal blood work. Arabella Cotter MA documented in this encounterElyria Memorial Hospital06-03-2024 History of Present illness Narrative* Sandeep Lenz MD - 02/24/2024 11:30 AM EDT Images from the original note were not included. NAME: Papo Andrew [facility] NO.: [id number] DATE OF SERVICE: February 24, 2024 (Eduardo) Some elements in this clinic note that are critical to medical decision making have been carefully reviewed and included from a prior clinic note dated: November 25, 2023 (Eduardo) Referring Provider: Eduardo Sharpe Additional Clinicians involved in Andrew Barros's care: DIAGNOSIS: History of Breast Cancer ASSESSMENT: 78 year old woman with Left breast upper outer quadrant, invasive ductal carcinoma, ER postive, WI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 01/04/2021 - Mammograms at [facility] Bi-Rads 2 benign. 09/26/2018 - Started arimidex 09/10/2018 - Completed radiation 06/05/2018 - L breast lumpectomy and SNB Updated Visit, February 24, 2024: Presents with daughter Sugey and was found to have an M-spike by her appeals representative, Dr. Rojo. We discussed potential diagnoses and [...] or petechiae. ____ ALLERGIES: ALLERGIES Allergen Reactions Dwnfzoa-Iae-Vkb Red* Unknown Other reaction(s): AOF MEDICATIONS: doxazosin [...] which included preparing to see the patient, cxcp-nh-edih patient care, completing clinical documentation, obtaining and/or reviewing separately obtained history, performing a medically appropriate examination, counseling and educating the pat ient/family/caregiver, ordering medications, tests, or procedures, independently interpreting results (not separately reported), communicating results to the patient/family/caregiver, and care coordination (not separately reported). Sandeep Lenz MD, CPE Hematology and Oncology Services Provided at: [place], [place] CC: Eduardo Sharpe MD [address] [facility] [address] documented in this encounterElyria Memorial Hospital06-03-2024 NoteHNO ID: [id number] Author: SANDEEP LENZ MD Service: ? Author Type: Physician Type: Progress Notes Filed: 02/24/2024 19:22 Note Text: NAME: Andrew Barros CLINIC NO.: [id number] DATE OF SERVICE: February 24, 2024 (Eduardo) Some elements in this clinic note that are critical to medical decision making have been carefully reviewed and included from a prior clinic note dated: November 25, 2023 (Eduardo) Referring Provider: Eduardo Sharpe Additional Clinicians involved in Andrew Barros's care: DIAGNOSIS: History of Breast Cancer ASSESSMENT: 78 year old woman with Left breast upper outer quadrant, invasive ductal carcinoma, ER postive, WI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 01/04/2021 - Mammograms at [facility] Bi-Rads 2 benign. 09/26/2018 - Started arimidex 09/10/2018 - Completed radiation 06/05/2018 - L breast lumpectomy and SNB Updated Visit, February 24, 2024: Presents with daughter Sugey and was found to have an M-spike by her appeals representative, Dr. Rojo. We discussed potential diagnoses and [...] something cheaper. Updated Visit, July 21, 2021: Anderw Barros returns for scheduled follow-up. Since her [...] of organ systems. (more content not included)... [facility]05-29-2024 NoteUT Cardiology - [facility] Subjective Andrew Barros is a 78 y.o. year old female patient being seen for follow up echo done a few weeks ago. She also had labs for her appeals representative. Denies chest pain, SOB, palpitations, and lightheadedness/syncope. [...] February 2023 she was admitted to the [facility] emergency room with epistaxis. She was [...] right side a (more content not included)... [facility]05-21-2024 Telephone encounter Note* Telephone Encounter - Aileen Miller - 02/11/2024 9:38 AM EDT Records scanned. [facility]05-21-[facility]24 Miscellaneous Notes* Telephone Encounter - Jusmariama BernalAileen - 02/11/2024 9:38 AM EDT Records scanned. * Telephone Encounter - Clemente Srivastava RN - 02/10/2024 2:40 PM EDT Pt seen by [facility] appeals representative, (unsure of whom), yesterday. Labs resulted high calcium and high protein. Recommended to see Dr Perry for further workup of cancer. Pt daughter transferred to [facility] to schedule. Lisa: please obtain records/nephrology office visit [place]: FYI; pt scheduled 02/24/24 for follow up to discuss Clemente Srivastava RN documented in this encounterElyria Memorial Hospital05-20-2024 Telephone encounter Note * Telephone Encounter - Clemente Srivastava RN - 02/10/2024 2:40 PM EDT Pt seen by [facility] appeals representative, (unsure of whom), yesterday. Labs resulted high calcium and high protein. Recommended to see Dr Perry for further workup of cancer. Pt daughter transferred to [facility] to schedule. Lisa: please obtain records/nephrology office visit [place]: FYI; pt scheduled 02/24/24 for follow up to discuss Clemente Srivastava RN [facility]03-04-2024 Instructions* Patient Instructions* Sandeep Lenz MD - 11/25/2023 3:25 PM EST RTC in 1 year - repeat labs - Exam same day. Repeat Mammogram prior to return Stop Arimidex. documented in this encounterElyria Memorial Hospital03-04-2024 History of Present illness Narrative* Sandeep Lenz MD - 11/25/2023 2:15 PM EST Images from the original note were not included. NAME: Andrew Barros CLINIC NO.: [id number] DATE OF SERVICE: November 25, 2023 (Eduardo) [...] outer quadrant, invasive ductal carcinoma, ER postive, WI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 01/04/2021 - Mammograms at [facility] Bi-Rads 2 benign. 09/26/2018 - Started arimidex [...] or petechiae. ____ ALLERGIES: ALLERGIES Allergen Reactions Sgxqnig-Fsm-Ojf Red* Unknown Other reaction(s): AOF MEDICATIONS: anastrozole [...] which included preparing to see the patient, hkpq-zf-dkob patient care, completing clinical documentation, obtaining and/or reviewing separately obtained history, performing a medically appropriate examination, communicating results to the pat ient/family/caregiver and care coordination (not separately reported). Sandeep Lenz MD, CPE Hematology and Oncology Services Provided at: [place], [place] CC: Eduardo Sharpe MD [address] [facility] [address] documented in this encounterElyria Memorial Hospital03-04-2024 NoteHNO ID: [id number] Author: SANDEEP LENZ MD Service: ? Author Type: Physician Type: Progress Notes Filed: 11/25/2023 19:36 Note Text: NAME: Andrew Barros [facility] NO.: [id number] DATE OF SERVICE: November 25, 2023 (Eduardo) [...] outer quadrant, invasive ductal carcinoma, ER postive, WI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 01/04/2021 - Mammograms at [facility] Bi-Rads 2 benign. 09/26/2018 - Started arimidex [...] to light, extraocular muscles (more content not included)...[facility]03-04-2024 Evaluation note* Diagnosis Malignant neoplasm of upper-outer quadrant of left breast in female, estrogen receptor positive (HCC)- Primary Stage 3 chronic kidney disease, unspecified whether stage 3a or 3b CKD (HCC) Breast screening Breast screening, unspecified Encounter for screening mammogram for malignant neoplasm of breast Other screening mammogram Hypercalcemia documented in this encounter [facility]02-08-2024 History of Present illness Narrative* Mark Isabel, DO - 10/31/2023 10:45 AM EST Images [...] @ 11:13 AM Additional Tests Keratometry K1 Mulberry K2 Mulberry Right 43.50 153 44 63 Left 43.75 [...] Normal Normal Refraction Wearing Rx Sphere Cylinder Mulberry Add Right -1.00 +0.00 180 +2.50 Left +1.75 -0.50 036 +2.50 Manifest Refraction Sphere Cylinder [place] Right -0.25 -0.75 141 Left Final Rx Sphere Cylinder [place] Dist [place] Add Right -1.00 20/25 +2.50 [...] different lens options were explained including the lsw-tw-ttywld fees for any upgrades. Intraocular lens (IOL) [...] to remain poorly compliant. documented in this encounterWashington County Memorial [id number] NoteUT Cardiology - [facility] Subjective Andrew Barros is a 78 y.o. year old female patient being seen for 6 mo follow up PAD, mitral valve regurgitation, chronic diastolic heart failure, and hypertension. Lisinopril was stopped at last visit in February 2023, and doxazosin was started. She was admitted to [facility] 2 weeks ago for hypomagnesemia and GO. [...] February 2023 she was admitted to the [facility] emergency room with epistaxis. She was [...] and regular rhythm. (more content not included)... [facility]11-27-2023 Miscellaneous Notes* Telephone Encounter - Clemente [...] Kidney function is stable documented in this encounterElyria Memorial Hospital11-27-2023 NoteHNO ID: [id number] Author: Sandeep Lenz MD Service: ? Author Type: Physician Type: Progress Notes Filed: 08/20/2023 7:07 AM Note Text: Kathy nephrology NAME: Andrew Barros CLINIC NO.: [id number] DATE OF SERVICE: August 19, 2023 (Eduardo) [...] outer quadrant, invasive ductal carcinoma, ER postive, WI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 Mammograms at [facility] on 01/04/2021 Bi-Rads 2 benign. [...] wounds or petechiae. ALLERGIES (more content not included)...[facility]09-18-2023 Miscellaneous Notes* Telephone Encounter - Jennifer [...] re-fax this referral and I was calling [facility] make sure they received it and see if patient has been scheduled yet. I asked their office to call us back with status of this referral. Jennifer Covington * Telephone Encounter - Aileen Miller - 06/05/2023 10:35 AM EDT Records re-faxed [...] EDT Lisa: Information ready for you. Jennifer Malone Pss * Telephone Encounter - Francia Anderson - 05/20/2023 4:06 PM EDT Refer to nephrology for hypercalcemia and kidney failure Lisa/Yan: Can you please refer patient and follow up? Thanks! Francia Anderson documented in this encounterElyria Memorial Hospital08-29-2023 Miscellaneous Notes* Telephone Encounter - Clemente Srivastava RN - 05/21/2023 10:18 AM EDT Pt aware of results and denies any questions or concerns at this time. She was transferred to [facility] to set up Q 6 week lab appts as requested. Clemente Srivastava RN * Telephone Encounter - Clemnete Srivastava RN - 05/21/2023 10:18 AM EDT ----- Message from Sandeep Lenz MD sent at 05/21/2023 10:15 AM EDT ----- Calcium was improved. - kidney function stable. CBC was normal. documented in this encounterElyria Memorial Hospital08-28-2023 Instructions* Patient Instructions* Sandeep Lenz MD - 05/20/2023 3:59 PM EDT Continue Arimidex. Refer to nephrology for hypercalcemia and kidney failure Repeat labs today RTC in 3 months - repeat labs documented in this encounterElyria Memorial Hospital08-28-2023 History of Present illness Narrative* Sandeep Lenz MD - 05/20/2023 3:27 PM EDT [facility] NAME: Andrew Barros CLINIC NO.: [id number] DATE OF SERVICE: May 20, 2023 (batsheva) Some elements in this clinic note that are critical to medical decision making have been carefully reviewed and included from a prior clinic note dated: April 29, 2023 (Eduardo) Referring Provider: Eduardo Sharpe Additional Clinicians involved in Andrew Barros's care: CC: History of Breast Cancer ASSESSMENT: 77 year old woman with Left breast upper outer quadrant, invasive ductal carcinoma, ER postive, WI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 Mammograms at [facility] on 01/04/2021 Bi-Rads 2 benign. [...] wounds or petechiae. ALLERGIES: ALLERGIES Allergen Reactions Zbcwqja-Ntw-Ihm Red* Unknown Other reaction(s): AOF MEDICATIONS: anastrozole [...] which included preparing to see the patient, tdkk-qr-ocdj patient care, completing clinical documentation, obtaining and/or reviewing separately obtained history, performing a medically appropriate examination, communicating results to the pat ient/family/caregiver and care coordination (not separately reported). Sandeep Lenz MD, CPE Services Provided at: [facility], [place], [place] & [facility] [place] CC: Eduardo Sharpe MD [address] [facility] [address] documented in this encounterElyria Memorial Hospital08-17-2023 History of Present illness Narrative* Aleida Vargas LSW - 05/09/2023 10:59 AM EDT Patient appears on the [facility] First Time Treatment List for a non-oncology treatment. No psychosocial assessment is indicated. DAPHNE Gupta documented in this encounterElyria Memorial Hospital08-07-2023 Instructions* Patient Instructions* Sandeep Lenz MD - 04/29/2023 4:09 PM EDT Continue Arimidex. Stop Calcium Continue Vitamin D. Zometa for hypercalcemia later this week Repeat labs and tumor markers prior to zometa Bone scan - [facility] is fine. RTC after Bone scan documented in this encounterElyria Memorial Hospital08-07-2023 History of Present illness Narrative* Sandeep Lenz MD - 04/29/2023 4:01 PM EDT Images from the original note were not included. NAME: Andrew Barros CLINIC NO.: [id number] DATE OF SERVICE: April 29, 2023 (Eduardo) [...] outer quadrant, invasive ductal carcinoma, ER postive, WI positive, Her2 lauren negative; 1.6 cm x [...] markers prior to zometa Bone scan - [facility] is fine. RTC after Bone scan TREATMENT [...] start on Vit-D + Calcium. Mammograms at [facility] on 01/04/2021 Bi-Rads 2 benign. [...] of recurring mass. ALLERGIES: ALLERGIES Allergen Reactions Bjcoxey-Mrm-Kan Red* Unknown Other reaction(s): AOF MEDICATIONS: doxazosin [...] acetaminophen 650 mg tab(s) (TYLENOL), DISCONTINUED: zoledronic xc-vnxxxyam-7.9NaCl 4 mg iv piggyback 100 mL (ZOMETA) (E83.52) Hypercalcemia Plan: CA 27.29 BLOOD, CA 15-3 BLD, CBC + DIFF, COMP METABOLIC PANEL, PTH, INTACT (WITHOUT CALCIUM), PTH RELATED PEPTIDE, PTH, INTACT (WITHOUT CALCIUM), DISCONTINUED: PHARMACY COMMUNICATION PATIENT ARRIVED, DISCONTINUED: acetaminophen 650 mg tab(s) (TYLENOL), DISCONTINUED: zoledronic gm-vwbvujkz-6.9NaCl 4 mg iv piggyback 100 mL (ZOMETA) [...] which included preparing to see the patient, ardj-qq-zuzd patient care, completing clinical documentation, obtaining and/or reviewing separately obtained history, performing a medically appropriate examination, communicating results to the pat ient/family/caregiver and care coordination (not separately reported). Sandeep Lenz MD, CPE Services Provided at: [facility], [place], [place] & [place], [place] CC: Eduardo Sharpe MD [address] [facility] [address] documented in this encounterElyria Memorial Hospital07-10-2023 NoteUT Cardiology - [facility] Subjective Andrew Barros is a 77 y.o. [...] February 2023 she was admitted to the [facility] emergency room with epistaxis. She was [...] Skin: General: Skin i (more content not included)...[facility]10-07-2022 Miscellaneous Notes* Telephone Encounter - Arabella Rodriguez MA - 06/29/2022 3:14 PM EDT Patient has an appt on 07/09/22. Would you like labs, if so place orders. Arabella Cotter MA documented in this encounterElyria Memorial Hospital08-27-2022 History of Present illness Narrative* Kristian Mcwilliams MD - 05/19/2022 12:13 PM EDT Images from the original note were not included. EMERGENCY TRIAGE, TREAT AND TRANSPORT (ET3) DOCUMENTATION OF TELEHEALTH VISIT Date / Time: 05/19/2022 / 1130 Name: Andrew Barros : 1945 SSN: (Not on file) EMS Agency: [facility] [x] Verbal consent obtained [] [...] by: Kristian Mcwilliams MD documented in this [id number] History of Present illness Narrative* Herbert Pelaez MD - 01/08/2022 11:33 PM EDT Images from the original note were not included. Radiation Oncology - Follow Up Note PATIENT NAME: Andrew Barros PATIENT DIAGNOSIS/PATIENT IDENTIFICATION: Ms. Barros is a 76-year old female with Infiltrating ductal carcinoma of the Left breast, UOQ, pathologic stage IIA (pT1c pN1a M0), ER-positive, WI-positive and Her2/lauren not amplified, s/p partial mastectomy [...] was otherwise noncontributory. ALLERGIES ALLERGIES Allergen Reactions Mezsqmn-Dku-Bxb Red* Unknown Other reaction(s): AOF MEDICATIONS: Current [...] pathologic stage IIA (pT1c pN1a M0), ER-positive, WI-positive and Her2/lauren not amplified, s/p partial mastectomy [...] which included preparing to see the patient, gaqx-nl-tlvx patient care and counseling and educating the patient/family/caregiver. This document has been created with the use of voice recognition technology. It may contain inaccuracies, misspellings, inaccurate syntax or inappropriate word context that are a result of the inadequacies/shortcomings of said technology/software. documented in this encounterElyria Memorial Hospital04-18-2022 History of Present illness Narrative* Sandeep Lenz MD - 01/08/2022 1:25 PM EDT Images from the original note were not included. NAME: Andrew Barros [facility] NO.: [id number] DATE OF SERVICE: January 08, 2022 Some [...] outer quadrant, invasive ductal carcinoma, ER postive, WI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 Mammograms at [facility] on 01/04/2021 Bi-Rads 2 benign. [...] of recurring mass. ALLERGIES: ALLERGIES Allergen Reactions Ovzdbyz-Ajc-Ecv Red* Unknown Other reaction(s): AOF MEDICATIONS: amLODIPine [...] which included preparing to see the patient, cnqs-qo-bilt patient care, completing clinical documentation, obtaining and/or reviewing separately obtained history, performing a medically appropriate examination, communicating results to the pat ient/family/caregiver and care coordination (not separately reported). Sandeep Lenz MD, CPE Services Provided at: [facility], [place], [place] & [place], [place] CC: Eduardo Sharpe MD [address] [facility] [address] documented in this encounterElyria Memorial Hospital04-18-2022 Nurse Note* Arabella Cotter MA - 01/08/2022 1:07 PM EDT Patient has had brain bleeds since being here last she is seeing Dr. Hernandez , she has been in [facility] as an inpatient due to the bleeds. Arabella Rodriguez MA documented in this encounterElyria Memorial Hospital03-10-2022 Evaluation note* Encounter Date Diagnosis Assessment [...] present CT and compared to the previous. [employer] Other 12-25-2020 NoteMicrobiology PROCEDURE: Blood Culture Charcoal [R1] SOURCE: Blood BODY SITE: Arm L COLLECTED DATE/TIME: 09/09/2020 13:00 EST RECEIVED DATE/TIME: 09/09/2020 14:05 EST START DATE/TIME: 09/09/2020 14:05 EST FREE TEXT SOURCE: lt chelle Pettit DO, Hayder Pettit DO, Hayder FINAL REPORTS Final Report [] Verified Date/Time: 09/16/2020 16:03 EST No growth at 7 days. Performing Locations R1: This test was performed at: [facility], [address] [place] [address], [id number] , , WrqupwGeorgetown Behavioral HospitalComment on above:Performed By: #### [id number] ####[facility] [id number] [place], [place] [id number] NoteMicrobiology PROCEDURE: Blood Culture Charcoal [R1] SOURCE: Blood BODY SITE: Hand L COLLECTED DATE/TIME: 09/09/2020 13:49 EST RECEIVED DATE/TIME: 09/09/2020 14:06 EST START DATE/TIME: 09/09/2020 14:06 EST FREE TEXT SOURCE: Hayder Pettit DO, DO, John FINAL REPORTS Final Report [] Verified Date/Time: 09/16/2020 16:01 EST No growth at 7 days. Performing Locations R1: This test was performed at: [facility], [address] [place] [address], [facility] , , YpifzrGeorgetown Behavioral HospitalComment on above:Performed By: #### [id number] #### [facility] [address] [place], [place] [address]Evaluation note* Diagnosis Onset Date Resolution Status Atrial fibrillation acute Diabetes acute Hypertension acute Intracerebral hemorrhage acu te Nontraumatic intracerebral hemorrhage acute [facility] Work Phone: Evaluation note* Diagnosis Malignant neoplasm of upper-outer quadrant of left breast in female, estrogen receptor positive (HCC)- Primary Encounter for screening for osteoporosis Special screening for osteoporosis Hypercalcemia [facility] Diagnosis Malignant neoplasm of upper-outer quadrant of left breast in female, estrogen receptor positive (HCC)- Primary [facility] Diagnosis Dyspnea, unspecified type- Primary [facility] Diagnosis Malignant neoplasm of upper-outer quadrant of left breast in female, estrogen receptor positive (HCC)- Primary Encounter for screening for osteoporosis Special screening for osteoporosis Hypercalcemia Hypercalcemia [facility] Diagnosis Malignant neoplasm of upper-outer quadrant of left breast in female, estrogen receptor positive (HCC) [facility] Diagnosis Hypercalcemia- Primary Other specified menopausal and perimenopausal disorders Malignant neoplasm of upper-outer quadrant of left breast in female, estrogen receptor positive (HCC) [facility]* Diagnosis Malignant neoplasm of upper-outer quadrant of left breast in female, estrogen receptor positive (HCC)- Primary Hypercalcemia Malignant neoplasm of breast in female, estrogen receptor positive, unspecified laterality, unspecified site of breast (HCC) Stage 3 chronic kidney disease, unspecified whether stage 3a or 3b CKD (HCC) [facility]* Diagnosis Malignant neoplasm of upper-outer quadrant of left breast in female, estrogen receptor positive (HCC) documented in this encounter [facility] note* Diagnosis Hypercalcemia- Primary Malignant neoplasm of upper-outer quadrant of left breast in female, estrogen receptor positive (HCC) Stage 3 chronic kidney disease, unspecified whether stage 3a or 3b CKD (HCC) documented in this encounter [facility]No [facility] [employer] Other Evaluation note* Diagnosis Age-related nuclear cataract of left eye- Primary Primary open angle glaucoma (POAG) of both eyes, mild stage (CMS/HCC) [facility]* Diagnosis Onset Date Resolution Status Anemia of renal disease acut e CKD (chronic kidney disease) stage 4, GFR 15-29 ml/min acute Hyperlipidemia acute [id number] acute Secondary hyperparathyroidism acute Type 2 diabetes mellitus wit h diabetic chronic kidney disease acute [facility] Work Phone: Evaluation note* Diagnosis Onset Date Resolution Status Anemia of renal disease acut e CKD (chronic kidney disease) stage 4, GFR 15-29 ml/min acute Hyperlipidemia acute [id number] acute Secondary hyperparathyroidism acute Type 2 diabetes mellitus wit h diabetic chronic kidney disease acute Anemia of renal disease acut e CKD (chronic kidney disease) stage 4, GFR 15-29 ml/min acute Hypercalcemia acute Hyperlipidemia acute [id number] acute Proteinuria acute Type 2 diabetes mellitus wit h diabetic chronic kidney disease acute [facility] Work Phone: Evaluation note* Diagnosis 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 Monoclonal paraproteinemia Hypercalcemia Stage 3 chronic kidney disease, unspecified whether stage 3a or 3b CKD (HCC) Malignant neoplasm of upper-outer quadrant of left breast in female, estrogen receptor positive (HCC) [facility]* Diagnosis Abnormal kidney function- Primary Unspecified disorder of kidney and ureter [facility]* Diagnosis Abnormal gastrointestinal PET scan- Primary Nonspecific abnormal results of other specified function study Gastritis, presence of bleeding unspecified, unspecified chronicity, unspecified gastritis type [facility] noteNo assessment information [facility] Work Phone: Evaluation note* Diagnosis Multiple myeloma not having achieved remission (HCC) Multiple myeloma, without mention of having achieved remission documented in this encounter [facility] note* Diagnosis Onset Date Resolution Status Anemia of renal disease acut e CKD (chronic kidney disease) stage 4, GFR 15-29 ml/min acute Hypercalcemia acute Hyperlipidemia acute [id number] acute Hyperuricemia acute Proteinuria acute Type 2 diabetes mellitus wit h diabetic chronic kidney disease acute [facility] Work Phone: History and physical note Author Amanda Contreras [facility] May 26, 2024 10:20am Note Date/Time May 26, 2024 10:20am [facility] [address] [place] [address] Gastroenterology H&P Signed Patient: Andrew Barros MR#: [id number] : 1945 Acct:[id number] Age/Sex: 78 / F Adm Date: 4 Loc: Room: Type: [facility] Attending Dr: Amanda Contreras DO Copies to: [...] signed by Amanda Contreras DO> 05/26/24 1020 [facility] Work Phone: History general Narrative - Reported* Type Description Date Medical History hypertension Medical History heart disease Medical History Esophageal reflux Medical History diabetes mallitus Medical History cancer Surgical History breast cancer Hospitalization History See Above [facility] Other Hospital Discharge instructions Additional Instructions DISCHARGE [...] problems. -Follow up with PCP. -Office number [phone]. [facility] Work Phone: [facility] (narrative)* Diagnostic Procedure Only (Routine) - Pending Review Specialty Diagnoses / Procedures Referred By Compa hampton Referred To Contact MOLECULAR & FUNCTIONAL IMAGING Diagnoses Malignant neoplasm of breast in female, estrogen receptor positive, unspecified laterality, unspecified site of breast (HCC) Procedures NM BONE WHOLE BODY BONE &/JOINT IMAGING WHOLE BODY Sandeep Lenz MD [address] [place] [address] [address] [place] [address] Molecular & Functional Imaging [address] [place] [address] Referral ID Status Reason Start Date Expiration Date Visits Requested Visits Authorized [id number] Pending Review Auto-Generat ed Referral 04/29/2023 05/28/2024 1 1 [facility] for referral (narrative)* Diagnostic Procedure [...] 2-VIEW BREAST INC CAD Sandeep Lenz MD [address] [place] [address] [address] [place] [address] [facility] [address] [place] [address] Referral ID Status Reason Start Date Expiration Date Visits Requested Visits Authorized [id number] Pending Review Auto-Generat ed Referral 10/27/2024 12/24/2024 1 1 [facility] for referral (narrative)* Outpatient Procedure (Routine) - New Request Specialty Diagnoses / Procedures Referred By Compa hampton Referred To Contact [facility] Diagnoses Abnormal gastrointestinal PET scan Gastritis, presence of bleeding unspecified, unspecified chronicity, unspecified gastritis type Procedures EGD DIAGNOSTIC ESOPHAGOGASTRODUODENOSCOPY TRANSORAL DIAGNOSTIC Re Ballesteros Jr., DO [address] [place] [address] [facility] [address] [address] Referral ID Status Reason Start Date Expiration Date Visits Requested Visits Authorized [id number] New Request Auto-Generat ed Referral 04/03/2024 04/03/2025 1 1 T [facility] for referral (narrative)* Diagnostic Procedure Only (Routine) - Closed Specialty Diagnoses / Procedures Referred By Compa hampton Referred To Contact MOLECULAR & FUNCTIONAL IMAGING Diagnoses Multiple myeloma not having achieved remission (HCC) Procedures NM PET/CT WHOLE BODY INITIAL PET IMAGING FOR CT ATTENUATION WHOLE BODY Sandeep Lenz MD [address] [place] [address] [place] [address] Molecular & Functional Imaging [address] [place] [address] Referral ID Status Reason Start Date Expiration Date V isits Requested Visits Authorized [id number] Closed Auto-Generate d Referral 03/06/2024 04/05/2025 1 1 T [facility] Summary Purpose Family History Relationship Condition Age at Onset Recorded Date/T sampson Not Specified Type 2 diabetes mellitus Unknown father Myocardial infarction Unknown Relationship Condition Age at Onset Recorded Date/T sampson mother Type 2 diabetes mellitus Unknown father Myocardial infarction Unknown son Malignant neoplasm of skin Unknown Advance Directives Advance Directive Response Recorded Date/ Time Advance Directives No August 1:25am Chief Complaint and Reason for Visit Chief Complaint Subarachnoid Hemorrh age [id number] i61.0 Reason for Visit Atrial fibrillation Diabetes Hypertension Intracerebral hemorrhage Nontraumatic intracerebral hemorrhage Chief Complaint RENAL CKD 4 Reason for Visit Anemia of renal dise ase CKD (chronic kidney disease) stage 4, GFR 15-29 ml/min Hyperlipidemia [id number] Secondary hyperparathyroidism Type 2 diabetes mellitus with diabetic chronic kidney disease Chief Complaint RENAL CKD 4 RENAL F/U / LAB REVIEW Reason for Visit Anemia of renal dise ase CKD (chronic kidney disease) stage 4, GFR 15-29 ml/min Hyperlipidemia [id number] Secondary hyperparathyroidism Type 2 diabetes mellitus with diabetic chronic kidney disease Anemia of renal disease CKD (chronic kidney disease) stage 4, GFR 15-29 ml/min Hypercalcemia Hyperlipidemia [id number] Proteinuria Type 2 diabetes mellitus with diabetic chronic kidney disease Chief Complaint abnormal findings on PET CT abnormal findings on PET CT Chief Complaint abnormal findings on PET CT abnormal findings on PET CT RENAL 6 MONTH F/U Reason for Visit Anemia of renal dise [facility] CKD (chronic kidney disease) stage 4, GFR 15-29 ml/min Hypercalcemia Hyperlipidemia [id number] Hyperuricemia Proteinuria Type 2 diabetes mellitus with diabetic chronic kidney disease Medications Administered Section Inactive Administered Medications - [...] 04/30/2023 2:46 PM EDT 650 mg zoledronic qg-ttzcongu-2.9NaCl 4 mg iv piggyback 100 mL (ZOMETA) 4 mg, INTRAVENOUS, Administer over 15 Minutes, ONCE, 1 dose, On Sat04/30/23 at 1500, Hazardous Potential Reproductive Risk Drug: Use appropriate PPE. New Bag/Syringe/Bottle 04/30/2023 3:10 PM EDT 4 mg Reason for Referral Specialty Diagnoses / Procedures Referred By Contac t Referred To Contact Gastroenterology Diagnoses Abnormal finding on GI tract imaging Procedures CONSULT TO GASTROENTEROLOGY OFFICE/OUTPATIENT NEW HIGH MDM 60 MINUTES Sandeep Lenz MD [address] [place] [address] [address] [place] [address] Referral ID Status Reason Start Date Expiration Date Visits Requested Visits Authorized [id number] Authorized PCP Requested Referral 03/26/2024 03/26/2025 1 1 Specialty Diagnoses / Procedures Referred By Contac t Referred To Contact Nephrology Diagnoses Hypercalcemia Stage 3 chronic kidney disease, unspecified whether stage 3a or 3b CKD (HCC) Procedures CONSULT TO KIDNEY MEDICINE OFFICE/OUTPATIENT NEW HIGH MDM 60-74 MINUTES Sandeep Lenz MD [address] [place] [address] [address] [place] [address] Referral ID Status Reason Start Date Expiration Date Visits Requested Visits Authorized [id number] Authorized PCP Requested Referral 05/20/2023 05/19/2024 1 1 Additional Source Comments INFORMATION SOURCE (unrecogn ized section and content) DATE CREATED AUTHOR 01/18/2021 [facility] DATE CREATED AUTHOR AUTHOR'S ORGANIZ ATION 05/15/2022 [facility] DATE CREATED AUTHOR AUTHOR'S ORGANIZ ATION 05/22/2022 [facility] [employer] [facility] DATE CREATED AUTHOR AUTHOR'S ORGANIZ ATION 09/24/2022 [facility] DATE CREATED AUTHOR AUTHOR'S ORGANIZ ATION 11/01/2023 [facility] EPIC DATE CREATED AUTHOR AUTHOR'S ORGANIZ ATION 02/20/2024 [facility] DATE CREATED AUTHOR AUTHOR'S ORGANIZ ATION 04/09/2024 [facility] DATE CREATED AUTHOR AUTHOR'S ORGANIZ ATION 06/12/2024 [facility] DATE CREATED AUTHOR AUTHOR'S ORGANIZ ATION 06/22/2024 [facility] Care Teams (unrecognized sec tion [...] Active Brayden Hernandez MD Attending Provider Active 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 Specialty Start Date End Date Eduardo Sharpe MD [address] [place] [address] PCP - General Family Practice 05/30/18 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 Specialty Start Date End Date Eduardo Sharpe MD [address] [place] [id number] PCP - General Family Practice 05/30/18 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 Specialty Start Date End Date Eduardo Sharpe MD [address] [place] [address] PCP - General Family Medicine 05/30/18 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 Specialty Start Date End Date Eduardo Sharpe MD [address] [place] [address] PCP - General Family Medicine 05/30/18 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 Specialty Start Date End Date Eduardo Sharpe MD PCP - General Family Medicine 05/30/18 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 Specialty Start Date End Date Eduardo Sharpe MD PCP - General Family Medicine 05/30/18 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 Specialty Start Date End Date Eduardo Sharpe MD PCP - General Family Medicine 05/30/18 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 Specialty Start Date End Date Eduardo Sharpe MD PCP - General Family Medicine 05/30/18 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 Specialty Start Date End Date Eduardo Sharpe MD PCP - General Family Medicine 05/30/18 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 Specialty Start Date End Date Eduardo Shapre MD PCP - General Family Medicine 05/30/18 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 Specialty Start Date End Date Eduardo Sharpe MD PCP - General Family Medicine 05/30/18 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 Specialty Start Date End Date Eduardo Sharpe MD PCP - General Family Medicine 05/30/18 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 Specialty Start Date End Date Eduardo Sharpe MD PCP - General Family Medicine 05/30/18 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 Specialty Start Date End Date Eduardo [...] February 10, 2024 End: February 10, 2024 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 Specialty Start Date End Date Eduardo Sharpe MD PCP - General Family Medicine 05/30/18 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 Specialty Start Date End Date Eduardo Sharpe MD PCP - General Family Medicine 05/30/18 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 Specialty Start Date End Date Eduardo Sharpe MD PCP - General Family Medicine 05/30/18 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 Specialty Start Date End Date Eduardo Sharpe MD PCP - General Family Medicine 05/30/18 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 Specialty Start Date End Date Eduardo Sharpe MD PCP - General Family Medicine 05/30/18 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 Specialty Start Date End Date Eduardo [...] Other Provider Active Start: May 26, 2024 Team Status: Inactive Member Role Status Dates Eduardo Sharpe MD Primary Care Provider Active Start: July 16, 2024 End: July 16, 2024 Vince Rojo MD Attending Provider Active Start : July 16, 2024 End: July 16, 2024 Source Comments (unrecognize d section and content) In the event this informatio n is protected by the Federal Confidentiality of Alcohol and Drug Abuse Patient Records regulations: The Federal rules restrict any use of the information to criminally investigate or prosecute any alcohol or drug abuse patient.[facility] the event this information is protected by the Federal Confidentiality of Alcohol and Drug Abuse Patient Records regulations: The Federal rules restrict any use of the information to criminally investigate or prosecute any alcohol or drug abuse patient.[facility] the event this information is protected by the Federal Confidentiality of Alcohol and Drug Abuse Patient Records regulations: The Federal rules restrict any use of the information to criminally investigate or prosecute any alcohol or drug abuse patient.[facility] the event this information is protected by the Federal Confidentiality of Alcohol and Drug Abuse Patient Records regulations: The Federal rules restrict any use of the information to criminally investigate or prosecute any alcohol or drug abuse patient.[facility] the event this information is protected by the Federal Confidentiality of Alcohol and Drug Abuse Patient Records regulations: The Federal rules restrict any use of the information to criminally investigate or prosecute any alcohol or drug abuse patient.[facility] Hospital[facility] the event this information is protected by the Federal Confidentiality of Alcohol and Drug Abuse Patient Records regulations: The Federal rules restrict any use of the information to criminally investigate or prosecute any alcohol or drug abuse patient.[facility] Hospital[facility] the event this information is protected by the Federal Confidentiality of Alcohol and Drug Abuse Patient Records regulations: The Federal rules restrict any use of the information to criminally investigate or prosecute any alcohol or drug abuse patient.[facility] Hospital[facility] the event this information is protected by the Federal Confidentiality of Alcohol and Drug Abuse Patient Records regulations: The Federal rules restrict any use of the information to criminally investigate or prosecute any alcohol or drug abuse patient.[facility] Hospital[facility] the event this information is protected by the Federal Confidentiality of Alcohol and Drug Abuse Patient Records regulations: The Federal rules restrict any use of the information to criminally investigate or prosecute any alcohol or drug abuse patient.[facility] Hospital[facility] the event this information is protected by the Federal Confidentiality of Alcohol and Drug Abuse Patient Records regulations: The Federal rules restrict any use of the information to criminally investigate or prosecute any alcohol or drug abuse patient.[facility] the event this information is protected by the Federal Confidentiality of Alcohol and Drug Abuse Patient Records regulations: The Federal rules restrict any use of the information to criminally investigate or prosecute any alcohol or drug abuse patient.[facility] Hospital[facility] the event this information is protected by the Federal Confidentiality of Alcohol and Drug Abuse Patient Records regulations: The Federal rules restrict any use of the information to criminally investigate or prosecute any alcohol or drug abuse patient.[facility] HospitalIn the event this information is protected by the Federal Confidentiality of Alcohol and Drug Abuse Patient Records regulations: The Federal rules restrict any use of the information to criminally investigate or prosecute any alcohol or drug abuse patient.[facility] Hospital[facility] the event this information is protected by the Federal Confidentiality of Alcohol and Drug Abuse Patient Records regulations: The Federal rules restrict any use of the information to criminally investigate or prosecute any alcohol or drug abuse patient.[facility] HospitalIn the event this information is protected by the Federal Confidentiality of Alcohol and Drug Abuse Patient Records regulations: The Federal rules restrict any use of the information to criminally investigate or prosecute any alcohol or drug abuse patient.[facility] HospitalIn the event this information is protected by the Federal Confidentiality of Alcohol and Drug Abuse Patient Records regulations: The Federal rules restrict any use of the information to criminally investigate or prosecute any alcohol or drug abuse patient.[facility] HospitalIn the event this information is protected by the Federal Confidentiality of Alcohol and Drug Abuse Patient Records regulations: The Federal rules restrict any use of the information to criminally investigate or prosecute any alcohol or drug abuse patient.[facility] HospitalIn the event this information is protected by the Federal Confidentiality of Alcohol and Drug Abuse Patient Records regulations: The Federal rules restrict any use of the information to criminally investigate or prosecute any alcohol or drug abuse patient.[facility] HospitalIn the event this information is protected by the Federal Confidentiality of Alcohol and Drug Abuse Patient Records regulations: The Federal rules restrict any use of the information to criminally investigate or prosecute any alcohol or drug abuse patient.[facility] HospitalIn the event this information is protected by the Federal Confidentiality of Alcohol and Drug Abuse Patient Records regulations: The Federal rules restrict any use of the information to criminally investigate or prosecute any alcohol or drug abuse patient.[facility] HospitalIn the event this information is protected by the Federal Confidentiality of Alcohol and Drug Abuse Patient Records regulations: The Federal rules restrict any use of the information to criminally investigate or prosecute any alcohol or drug abuse patient.[facility] HospitalIn the event this information is protected by the Federal Confidentiality of Alcohol and Drug Abuse Patient Records regulations: The Federal rules restrict any use of the information to criminally investigate or prosecute any alcohol or drug abuse patient.[facility] HospitalIn the event this information is protected by the Federal Confidentiality of Alcohol and Drug Abuse Patient Records regulations: The Federal rules restrict any use of the information to criminally investigate or prosecute any alcohol or drug abuse patient.[facility] HospitalIn the event this information is protected by the Federal Confidentiality of Alcohol and Drug Abuse Patient Records regulations: The Federal rules restrict any use of the information to criminally investigate or prosecute any alcohol or drug abuse patient.[facility] HospitalIn the event this information is protected by the Federal Confidentiality of Alcohol and Drug Abuse Patient Records regulations: The Federal rules restrict any use of the information to criminally investigate or prosecute any alcohol or drug abuse patient.[facility] Reason for Visit (unrecogniz ed section [...] and perimenopausal disorders Hypercalcemia Sandeep Lenz MD [address] [place] [address] [address] [place] [address] [employer] [facility] [address] [place] [address] Referral ID Status Reason Start Date Expiration Date V isits Requested Visits Authorized [id number] Authorized 04/29/2023 07/28/2023 99 99 Reason Comments [...] CT ATTENUATION WHOLE BODY Sandeep Lenz MD [address] [place] [address] [address], [place] [address] Molecular & Functional Imaging [address] [place] [address] Referral ID Status Reason Start Date Expiration Date V isits Requested Visits Authorized [id number] Closed Auto-Generate d Referral 03/06/2024 04/05/2025 1 [...] BE BASED ON THE PRIMARY CLINICAL RECORDS. [employer] provides no warranty or guarantee of the accuracy or completeness of information in this document.
[2024-07-17 09:18] LABS: Bilirubin Urine NEGATIVE (NEGATIVE); Blood Urine SMALL (NEGATIVE); Color Urine LT. YELLOW (YELLOW); Glucose Urine UA NEGATIVE (NEGATIVE); Ketones Urine NEGATIVE (NEGATIVE); Leukocyte Esterase Urine LARGE (NEGATIVE); Nitrite Urine NEGATIVE (NEGATIVE); Protein Urine 100 mg/dL (NEG/TRACE); Urobilinogen Urine 0.2 EU/dL (0.2-1.0)
[2024-07-17 09:23] LABS: Clarity Urine TURBID (CLEAR)
[2024-07-17 09:26] LABS: Creatinine Urine Random 64.78 mg/dL (20.00-300.00); Protein Creatinine Ratio Urine 2.45; Total Protein Urine Random 158.5 mg/dL (<=11.9)
[2024-07-17 09:29] LABS: Hematocrit 39.9 % (36.0-48.0); Mean Corpuscular HGB Conc 32.6 g/dL (29.9-35.2); Mean Corpuscular Hemoglobin 30.4 pg (26.7-34.0); Mean Corpuscular Volume 93.4 fL (81.0-99.0); Mean Platelet Volume 10.7 fL (9.5-13.5); Platelet Count 306 10^3/uL (150-450); Red Blood Count 4.27 10^6/uL (4.20-5.40); Red Cell Distribution Width 13.5 % (11.0-15.0); White Blood Count 12.3 10^3/uL (4.0-11.0)
[2024-07-17 09:34] LABS: Bacteria Urine LARGE #/HPF (NONE SEEN); RBC Urine NONE SEEN #/HPF (0-2); WBC Urine >100 #/HPF (NONE SEEN)
[2024-07-17 09:35] LABS: Cast Seen? NONE SEEN #/LPF (NONE SEEN); Crystals Seen? None Seen #/HPF (None Seen); Mucus Urine NONE SEEN (NONE SEEN); Squamous Epithelial Cell Urine NONE SEEN #/LPF (NONE/RARE)
[2024-07-17 09:36] LABS: Albumin Level 3.6 g/dL (3.4-5.0); Calcium 9.9 mg/dL (8.5-10.1); Carbon Dioxide 27.3 mmol/L (21.0-32.0); Chloride 102 mmol/L (98-107); Estimated GFR (African America 32 (>=60 mL/min/1.73m^2); Estimated GFR (Non-African Ame 26 (>=60 mL/min/1.73m^2); Glucose 132 mg/dL (74-106); Phosphorus 3.5 mg/dL (2.6-4.7); Potassium 4.3 mmol/L (3.5-5.1); Sodium 141 mmol/L (136-145)
[2024-07-18 11:09] LABS: PTH, Intact 40 pg/mL (15-65)
[2024-07-20 16:10] LABS: Albumin 3.7 g/dL (2.9-4.4); Alpha-1-Globulin 0.3 g/dL (0.0-0.4); Alpha-2-Globulin 1.1 g/dL (0.4-1.0); Free Lambda Lt Chains,S 23.4 mg/L (5.7-26.3); Immunoglobulin A, Qn, Serum 180 mg/dL (64-422); Immunoglobulin G, Qn, Serum 784 mg/dL (586-1602); Immunoglobulin M, Qn, Serum 382 mg/dL (26-217); Kappa/Lambda Ratio,S 2.61 (0.26-1.65); Protein, Total 7.2 g/dL (6.0-8.5)
== END 2024-07-17 08:28 | disposition home or self-care (01) ==
PROVIDERS: PCP Family Medicine; Visit Provider Internal Medicine
DX: E79.0 Hyperuricemia without signs of inflammatory arthritis and tophaceous disease (principal); R80.9 Proteinuria, unspecified; E83.52 Hypercalcemia; N18.9 Chronic kidney disease, unspecified; D63.1 Anemia in chronic kidney disease; I12.9 Hypertensive chronic kidney disease with stage 1 through stage 4 chronic kidney disease, or unspecified chronic kidney disease
CPT/HCPCS: 36415; 80069; 81001; 82306; 82570; 82784; 83521; 83970; 84155; 84156; 84165; 84166; 84550; 85027; 86335

== ENCOUNTER 2024-08-25 09:22 | Outpatient (OUT) | payer MEDICARE, OTHER, SELFPAY ==
[2024-08-25 11:24] LABS: Alanine Aminotransferase 18 U/L (14-59); Albumin Globulin Ratio 0.9; Albumin Level 3.4 g/dL (3.4-5.0); Alkaline Phosphatase 84 U/L (46-116); Anion Gap 12.6; Aspartate Amino Transferase 15 U/L (15-37); BUN Creatinine Ratio 18.5; Bilirubin Total 0.6 mg/dL (0.2-1.0); Calcium 9.9 mg/dL (8.5-10.1); Carbon Dioxide 28.5 mmol/L (21.0-32.0); Chloride 104 mmol/L (98-107); Estimated GFR (African America 29 (>=60 mL/min/1.73m^2); Estimated GFR (Non-African Ame 24 (>=60 mL/min/1.73m^2); Globulin 3.9 g/dL; Glucose 132 mg/dL (74-106); Potassium 4.1 mmol/L (3.5-5.1); Sodium 141 mmol/L (136-145); Total Protein 7.3 g/dL (6.4-8.2)
== END 2024-08-25 09:23 | disposition home or self-care (01) ==
LOC: LAB 09:24
PROVIDERS: PCP Family Medicine; Visit Provider Family Medicine
DX: R53.1 Weakness (principal); N18.4 Chronic kidney disease, stage 4 (severe)
CPT/HCPCS: 36415; 80053

== ENCOUNTER 2024-08-31 09:48 | Outpatient (OUT) | payer MEDICARE, OTHER, SELFPAY ==
--- NOTE | 2024-08-31 09:52 | MM_ITS ---
Patient Name: ANDREW JAMISON MR#: [id number] : 1945 Exam Date: 08/31/2024 Ordering Doctor: DR. CASSIDY LENZ M.D. RADIOLOGY REPORT PROCEDURE: MM TOMOSYNTHESIS SCREENING BI COMPARISON: MM TOMOSYNTHESIS SCREENING BI, 08/28/2023. MG MAMM DIAGNOSTIC 3D GISELE CAD, 01/05/2022. MG MAMM DIAGNOSTIC 3D GISELE CAD, 01/04/2021. MG MAMM SCREEN GISELE W CAD, 08/19/2012. INDICATIONS: Screening Calculator Name NCI Breast Cancer Risk Assessment Tool 5 Year Breast Cancer Risk n/a% Lifetime Breast Cancer Risk n/a% Personal Breast Cancer Yes, left, infiltrating ductal carcinoma Personal Ovarian Cancer No Treatments lumpectomy and radiation Family Cancers None LOCATION: [facility] BREAST COMPOSITION: There are scattered areas of fibroglandular density. FINDINGS: DIAGNOSTIC CATEGORY 2--BENIGN FINDING: RIGHT BREAST: No significant suspicious finding. Scattered benign-appearing calcifications are present. No significant change has occurred. LEFT BREAST: No significant suspicious finding. Scattered benign-appearing calcifications are present. Stable postsurgical changes and numerous surgical clips. No significant change has occurred. RECOMMENDATIONS: ROUTINE MAMMOGRAM AND CLINICAL EVALUATION IN 12 MONTHS. PLEASE NOTE: A NORMAL MAMMOGRAM DOES NOT EXCLUDE THE POSSIBILITY OF BREAST CANCER. A CLINICALLY SUSPICIOUS PALPABLE LUMP SHOULD BE BIOPSIED. Dictated by: Tray Higgins M.D. on 08/31/2024 at 15:47 Approved by: Tray Higgins M.D. on 08/31/2024 at 15:55
== END 2024-08-31 09:49 | disposition home or self-care (01) ==
LOC: MAMMO 09:48
PROVIDERS: PCP Family Medicine; Visit Provider Internal Medicine Hematology & Oncology
DX: C50.412 Malignant neoplasm of upper-outer quadrant of left female breast (principal); Z17.0 Estrogen receptor positive status [ER+]; Z12.31 Encounter for screening mammogram for malignant neoplasm of breast; Z12.39 Encounter for other screening for malignant neoplasm of breast; Z85.3 Personal history of malignant neoplasm of breast
CPT/HCPCS: 77063; 77067

== ENCOUNTER 2024-12-21 08:53 | Outpatient (OUT) | payer MEDICARE, OTHER, SELFPAY ==
[2024-12-21 10:05] LABS: Anion Gap 14.5; BUN Creatinine Ratio 19.4; Calcium 9.8 mg/dL (8.5-10.1); Carbon Dioxide 27.9 mmol/L (21.0-32.0); Chloride 104 mmol/L (98-107); Estimated GFR (African America 29 (>=60 mL/min/1.73m^2); Estimated GFR (Non-African Ame 24 (>=60 mL/min/1.73m^2); Glucose 147 mg/dL (74-106); Potassium 4.4 mmol/L (3.5-5.1); Sodium 142 mmol/L (136-145)
== END 2024-12-21 08:54 | disposition home or self-care (01) ==
LOC: LAB 08:57
PROVIDERS: PCP Family Medicine; Visit Provider Family Medicine
DX: Z79.899 Other long term (current) drug therapy (principal)
CPT/HCPCS: 36415; 80048

== ENCOUNTER 2024-12-30 08:50 | Outpatient (OUT) | payer MEDICARE, OTHER, SELFPAY ==
--- NOTE | 2024-12-30 09:00 | CA_ITS ---
Patient Name: ANDREW JAMISON MR#: [id number] : 1945 Exam Date: 12/30/2024 Ordering Doctor: RAHEEL WRIGHT CNP ECHOCARDIOGRAM REPORT PROCEDURE: CA ECHO DOPPLER COMPLETE INDICATIONS: Mitral valve regurgitation, hypertension, diabetes COMPARISON: None. DESCRIPTION: COMPLETE ECHOCARDIOGRAM Real-time transthoracic echocardiography with 2D, M-mode, spectral and color flow Doppler performed. QUALITY: Technical quality was good. LEFT VENTRICLE: Normal chamber size. Normal left ventricular wall thickness. Normal systolic function. LV EF: Normal left ventricular ejection fraction, (55%). DIASTOLIC: Grade II diastolic dysfunction. ATRIAL SEPTUM: Visually appears intact. LEFT ATRIUM: Moderate dilatation. RIGHT ATRIUM: Mild dilatation. RIGHT VENTRICLE: Normal chamber size. Normal right ventricular systolic function. TRICUSPID VALVE: Normal mobility and thickness. No stenosis with mild to moderate regurgitation. Doppler studies reveal moderately (45-60) elevated right sided pressures. RVSP 55 mmHg MITRAL VALVE: Normal mobility and thickness. No evidence of mitral valve stenosis. Moderate mitral regurgitation. AORTIC VALVE: Normal trileaflet appearance. Thickened aortic valve. Normal leaflet mobility. No evidence of aortic valve stenosis. No aortic regurgitation. AORTIC ROOT: Normal diameter and appearance. Ascending aorta is normal in size. PULMONIC VALVE: Normal thickness and mobility. No stenosis. No regurgitation. PERICARDIUM: No evidence of pericardial effusion. IVC: IVC is dilated (2.4 cm), does not collapse. PLEURA: CONCLUSION: 1. Normal left ventricular size and systolic function. Estimated LVEF is 55%. 2. Normal right ventricular size and systolic function. 3. Grade 2 diastolic dysfunction. 4. Mild to moderate biatrial dilatation. 5. Moderate mitral regurgitation. 6. Mild to moderate tricuspid regurgitation. 7. Moderately elevated right-sided pressures. RVSP is 55 mmHg. Adult Echocardiography Procedure Report Left Ventricle LVEDD (3.7 - 5.6 cm): 4.55 cm LVESD (2.2 - 4.0 cm): 2.43 cm LVIVS thickness (0.6 - 1.2 cm): 0.84 cm LVPW thickness (0.5 - 1.0 cm): 0.86 cm e': 0.06 m/s E - e': 16.07 LVOT Max Gradient: 2.38 mm[Hg] LVOT Area (cm2): 0.77 m/s Peak Velocity (LVOT): 0.77 m/s Mean Velocity (LVOT): 0.50 m/s LVOT Diameter 1.92 cm Left Atrium LA Volume Index (2D A2C): 52.34 ml/m2 Left Atrium Systolic Dimension: 3.89 cm Mitral Valve MV E to A Ratio: 2.28 Mitral Valve A-Wave Peak Velocity: 0.43 m/s Mitral Valve E-Wave Peak Velocity: 0.99 m/s Right Ventricle Aorta AO Root Diam: 2.60 cm Ascending Ao Diam: 2.80 cm Aortic Valve AoV Area (Peak Abhijit): 1.74 cm2, 1.74 cm2 AoV Area (VTI): 1.96 cm2, 1.96 cm2 Peak Velocity(Antegrade Flow): 1.29 m/s Peak Gradient(Antegrade Flow): 6.63 mm[Hg] Mean Velocity(Antegrade Flow): 0.85 m/s Mean Gradient(Antegrade Flow): 3.38 mm[Hg] Velocity Time Integral: 27.86 cm Tricuspid Valve Peak Velocity (Regurgitant Flow): 3.16 m/s, 2.87 m/s, 3.13 m/s Pulmonic Valve Mean Gradient: 2.20 mm[Hg] Mean Velocity: 0.69 m/s Peak Velocity: 1.02 m/s, 0.99 m/s Peak Gradient: 3.91 mm[Hg], 4.13 mm[Hg] Right Atrium Right Atrium Systolic Pressure: 37.73 ml, 37.73 ml Dictated by: Erick Sandoval M.D. on 12/30/2024 at 18:51 Approved by: Erick Sandoval M.D. on 12/30/2024 at 18:55
== END 2024-12-30 08:51 | disposition home or self-care (01) ==
LOC: CARD 08:50
PROVIDERS: PCP Family Medicine; Visit Provider Nurse Practitioner Family
DX: I48.0 Paroxysmal atrial fibrillation (principal); I34.0 Nonrheumatic mitral (valve) insufficiency
CPT/HCPCS: 93306

== ENCOUNTER 2025-03-15 08:53 | Outpatient (OUT) | payer MEDICARE, OTHER, SELFPAY ==
--- OUTSIDE RECORDS SUMMARY | 2025-03-15 09:04 | XMS_ITS | Clinical Summary ---
Author Organization [facility] Address [address] [place] [address] Care Team Providers Care Media Analyst Name Role Phone Xavier Mcnamara MD Primary Care Provider [phone] Allergies Active Allergy Reactions Criticality Noted Date Comments Wgsjtxo-Vcj-Uqy Reductase Inhibitors Unknown 01/21/2018 Other reaction(s): AOF Medications ezetimibe (ZETIA) 10 mg tablet Take 10 mg by mouth once daily. Active carvedilol (COREG) 25 mg tablet Take 25 mg by mouth as directed. Takes 1 1/2 tablet 2x a day Active furosemide (LASIX) 40 mg tablet Take 40 mg by mouth once daily. Alternates with 20mg Active propafenone SR (RYTHMOL SR) 325 mg 12 hr capsule Take 325 mg by mouth q 12 HR. 04/12/20 21 Active potassium chloride (K-TAB) 10 mEq tablet 09/22/20 20 Active omeprazole (PRILOSEC) 40 mg capsule Take 40 mg by mouth once daily. 04/08/20 21 Active calcium-cholecalci ferol, D3, (OSCAL+D 250) 250-125 mg-unit per tabletIndications: Encounter for screening for osteoporosis,Asymp tomatic postmenopausal status,Other specified menopausal and perimenopausal disorders,Malignan t neoplasm of upper-outer quadrant of left breast in female, estrogen receptor positive (HCC) Take 1 tablet by mouth twice daily. 60 tablet 3 04/20/20 21 Active Additional Information Patient not taking.Reported on 07/22/2024 amLODIPine (NORVASC) 2.5 mg tablet Take 5 mg by mouth twice daily. 12/06/19 22 Active doxazosin (CARDURA) 4 mg tablet Take 4 mg by mouth daily at bedtime. Takes 2mg in morning then 4mg at night 04/01/20 23 Active ferrous sulfate 325 mg (65 mg iron) tablet Take 325 mg by mouth once daily. Active anastrozole (ARIMIDEX) 1 mg tabletIndications: Malignant neoplasm of upper-outer quadrant of left breast in female, estrogen receptor positive (HCC) TAKE 1 TABLET BY MOUTH EVERY DAY 90 tablet 2 05/08/20 23 Active Lactobacillus acidophilus (PROBIOTIC ORAL) Take by mouth. 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 CKD (chronic kidney disease) 04/16/2024 Stage 3 chronic kidney disea se, unspecified whether stage 3a or 3b CKD 05/05/2023 Hypercalcemia 04/29/2023 Other specified menopausal and perimenopausal di sorders 04/20/2021 Malignant neoplasm of upper- outer quadrant of left breast in female, estrogen receptor positive 06/12/2018 Immunizations Immunization Administration Dates Next Due influenza (HD-IIV3) vaccine, age 65+ yr, high dose, trivalent, PF (FLUZONE HIGH-DOSE) 07/11/2022,06/12/2021,06/22/2020,06/17,07/09/2017 influenza (HD-IIV4) vaccine, age 65+ yr, high dose, quadrivalent, PF (FLUZONE HIGH-DOSE) 07/07/2021 influenza (aIIV3) vaccine, a ge 65+ yr, trivalent, PF (FLUAD) 06/15/2020 pneumococcal conjugate (PCV1 3) vaccine, 13 valent (PREVNAR 13) 06/17/2018,07/09/2017 pneumococcal polysaccharide (PPV23) vaccine, 23 valent (PNEUMOVAX 23) 07/11/2022 unknown vaccine or immune globulin 07/07/2021 Social History Tobacco Use Types Packs/Day Years Used Date Smoking Tobacco: Never Passive Smoke Exposure: Never Smokeless Tobacco: Never Tobacco Cessation:Counseling Given: Not Answered Alcohol Use Standard Drinks/Week Comments Yes 0 (1 standard drink = 0.6 oz pur e alcohol) very rare PHQ-2 Answer Date Recorded PHQ-2 score 0 10/19/2024 Area Deprivation Index Answer Date Ty rded National Score (1-100), lower number is lower ri sk 78 03/24/2024 State Score (1-10), lower number is lower risk 6 03/24/2024 Data from: https://www.neighborhoodatlas.[facility] Last address used for calculation [address] 03/24/2024 Comments No Sex and Gender Information Value Date Recorded Sex Assigned at Not on file Legal Sex Female 9:12 AM EDT Gender Identity Not on file Sexual Orientation Not on file Last Filed Vital Signs Vital Sign Reading Time Taken Comments Blood Pressure 139/76 11/27/2024 11:29 AM EST Pulse 64 11/27/2024 11:29 AM EST Temperature 36.6 C (97.8 F) 11/27/2024 11:29 AM EST Respiratory Rate 16 11/27/2024 11:2 9 AM EST Oxygen Saturation 97% 11/27/2024 11: 29 AM EST Inhaled Oxygen Concentration - - Weight 68.4 kg (150 lb 12.7 oz) 025 11:29 AM EST Height 160.2 cm (5' 3.07 ) 10/19/2024 1 0:55 AM EST Body Mass Index 26.65 10/19/2024 10:55 AM EST Plan of Treatment Upcoming Encounters Date Type Department Care Team (Latest Contact Info) Description 05/31/2025 11:00 AM EDT Office Visit [facility] [address] [place], [place] [address] [place], [place] [address] 6 month follow up labs 1 week prior 06/14/2025 10:20 AM EDT Visit (SP) Office Hematology/Oncology [address] [place] [address] Sandeep Clark MD [address] [place] [address] 6 month follow up labs 1 week prior- Health Maintenance Due Date Last Done Comments Annual PCP Team Chronic Dise ase Visit 1962 Anxiety Screening 1962 Depression Screening 1962 DTaP,Tdap,Td Vaccine (1 - Tdap) 1963 Shingrix Vaccine (1 of 2) 1994 Medicare Annual Wellness Visit 09/23/2009 Bone Density Screening 2009 RSV Vaccine (1 - 1-dose 75+ series) 2019 Covid-19 Vaccine (1 - 2023-2 5 season) 2024 Advance Directive Discussion 09/23/2024 Influenza Vaccine (Season Ended) 2025 07/11/2022, 07/07/2021, 06/12/2021, Additional history exists Hemoglobin/Hematocrit 11/27/2025 11/27/2024 , 10/19/2024, 04/23/2024, Additional history exists Serum Creatinine 11/27/2025 11/27/2024, , 04/14/2024, Additional history exists Diabetes Screening 11/28/2027 11/27/2024, 0 10/19/2024, 04/14/2024, Additional history exists Pneumococcal Vaccine: 50+ Completed 2021, 06/17/2018, 07/09/2017 Procedures Procedure Name Priority Date/Time Associated Diagnosis Comments CBC + DIFF Routine 11/27/2024 11:00 AM EST Malignant neoplasm of upper-outer quadrant of left breast in female, estrogen receptor positive (HCC) Breast screening COMPREHENSIVE METABOLIC PANEL Routine 11/27/2024 11:00 AM EST Malignant neoplasm of upper-outer quadrant of left breast in female, estrogen receptor positive (HCC) Breast screening from Last 3 Months or Most Recently Relevant to Health Maintenance Results * (ABNORMAL) COMP METABOLIC PANEL (11/27/2024 11:00 AM EST) Protein, Total 7.1 6.3 - 8.0 g/dL 11/27/2024 11:43 AM EST [facility] Albumin 4.0 3.9 - 4.9 g/dL 11/27/2024 11:43 AM EST [facility] Calcium, Total 9.6 8.5 - 10.2 mg/dL 11/27/2024 11:43 AM [facility] Bilirubin, Total 0.4 0.2 - 1.3 mg/dL 11/27/2024 11:43 AM [facility] Alkaline Phosphatase 103 34 - 123 U/L 11/27/2024 11:43 AM [facility] AST 15 13 - 35 U/L 11/27/2024 11:43 AM [facility] ALT 9 7 - 38 U/L 11/27/2024 11:43 AM [facility] Glucose 159(H) 74 - 99 mg/dL 11/27/2024 11:43 AM [facility] Comment: The [place] Diabetes Association (ADA) provides guidance for cutoff [...] Standards of Medical Care in Diabetes 2016, [place] [employer]. Diabetes Care. 2016.39(Suppl 1). BUN 28(H) 7 - 21 mg/dL 11/27/2024 11:43 AM [facility] Creatinine 1.61(H) 0.58 - 0.96 mg/dL 11/27/2024 11:43 AM [facility] Sodium 142 136 - 144 mmol/L 11/27/2024 11:43 AM [facility] Potassium 4.8 3.7 - 5.1 mmol/L 11/27/2024 11:43 AM [facility] Chloride 105 98 - 107 mmol/L 11/27/2024 11:43 AM [facility] CO2 27 22 - 30 mmol/L 11/27/2024 11:43 AM EST [facility] Anion Gap 10 8 - 15 mmol/L 11/27/2024 11:43 AM EST [facility] Estimated Glomerular Filtration Rate 32(L) >=60 mL/min/1. 73m 11/27/2024 11:43 AM EST [facility] Comment:Estimated Glomerular Filtration Rate (eGFR) is calculated using the 2020 CKD-EPI creatinine equation. This equation utilizes serum creatinine, sex, and age as parameters. The creatinine assay has traceable calibration to isotope dilution- mass spectrometry. Refer to KDIGO guidelines for clinical interpretation. In patients with unstable renal function, e.g. those with acute kidney injury, the eGFR may not accurately reflect actual GFR. Blood BLOOD SPECIMEN / Unknown Venipuncture / Unknown 11/27/2024 11:00 AM EST 11/27/2024 11:00 AM EST Sandeep Clark MD LABORATORY Final Result [facility] [address] [place] [address] * (ABNORMAL) CBC + DIFF (11/27/2024 11:00 AM EST) WBC 9.53 3.70 - 11.00 k/uL 11/27/2024 11:04 AM [facility] RBC 4.17 3.90 - 5.20 m/uL 11/27/2024 11:04 AM [facility] Hemoglobin 12.6 11.5 - 15.5 g/dL 11/27/2024 11:04 AM [facility] Hematocrit 38.4 36.0 - 46.0 % 11/27/2024 11:04 AM [facility] MCV 92.1 80.0 - 100.0 fL 11/27/2024 11:04 AM [facility] MCH 30.2 26.0 - 34.0 pg 11/27/2024 11:04 AM [facility] MCHC 32.8 30.5 - 36.0 g/dL 11/27/2024 11:04 AM [facility] RDW-CV 13.0 11.5 - 15.0 % 11/27/2024 11:04 AM [facility] Platelet Count 259 150 - 400 k/uL 11/27/2024 11:04 AM [facility] MPV 10.5 9.0 - 12.7 fL 11/27/2024 11:04 AM [facility] Neutrophils % 74.8 % 11/27/2024 11:04 AM [facility] Abs Neut 7.13 1.45 - 7.50 k/uL 11/27/2024 11:04 AM [facility] Lymphocytes % 13.1 % 11/27/2024 11:04 AM [facility] Abs Lymph 1.25 1.00 - 4.00 k/uL 11/27/2024 11:04 AM [facility] Monocytes % 9.7 % 11/27/2024 11:04 AM [facility] Abs [place] 0.92(H) <0.87 k/uL 11/27/2024 11:04 AM [facility] Eosinophils % 1.5 % 11/27/2024 11:04 AM [facility] Abs Eosin 0.14 <0.46 k/uL 11/27/2024 11:04 AM [facility] Basophils % 0.6 % 11/27/2024 11:04 AM [facility] Abs Baso 0.06 <0.11 k/uL 11/27/2024 11:04 AM [facility] Immature Granulocytes % 0.3 % 11/27/2024 11:04 AM [facility] Abs Immature Gran 0.03 <0.10 k/uL 11/27/2024 11:04 AM [facility] NRBC 0.0 /100 WBC 11/27/2024 11:04 AM EST [facility] Absolute nRBC <0.01 <0.01 k/uL 11/27/2024 11:04 AM EST [facility] Diff Type Auto 11/27/2024 11:04 AM EST [facility] Blood BLOOD SPECIMEN / Unknown Venipuncture / Unknown 11/27/2024 11:00 AM EST 11/27/2024 11:00 AM EST us Sandeep Clark MD LABORATORY Final Result [facility] [address] [place] [address] from Last 3 Months or Most Recently Relevant to Health Maintenance Insurance MEDICARE [facility] MEDICARE [employer] Care Teams Media Analyst Relationship Specialty Start Date End Date Xavier Mcnamara MD PCP - General Family Medicine 05/30/18
--- OUTSIDE RECORDS SUMMARY | 2025-03-15 09:04 | XMS_ITS ---
Author Organization [facility] Address [address] [place] [address] Care Team Providers Care Freight Engineer Name Role Phone Xavier Mcnamara MD Primary Care Provider [phone] Active Problems Problem Noted Date Diagnosed Date [...] breast in female, estrogen receptor positive 06/12/2018 Current Treatment and Therapy Plans No current plan information found. 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
--- OUTSIDE RECORDS SUMMARY | 2025-03-15 09:04 | XMS_ITS | Clinical Summary ---
Author Organization [facility] Address [address] [place] [address] Care Team Providers Care Investigative Shopper Name Role Phone Xavier Mcnamara MD Primary Care Provider [phone] Allergies Active Allergy Reactions Criticality Noted Date Comments Tkneigx-Jlb-Nes Reductase Inhibitors Other 01/21/2018 Other reaction(s): AOF Medications anastrozole (Arimidex) 1 mg chemo tablet anastrozole 1 mg tablet TAKE 1 TABLET BY MOUTH EVERY DAY 07/09/20 22 Active aspirin 81 mg chewable tablet in the morning. Active ergocalciferol (Vitamin D-2) 1.25 MG (83190 Units) capsule ergocalciferol (vitamin D2) 1,250 mcg (50,000 unit) capsule TAKE 1 CAPSULE BY MOUTH ONCE A WEEK ON MONDAYS Active metFORMIN (Glucophage) 500 mg tablet Take 500 mg by mouth in the morning and at bedtime. 07/06/20 22 Active omeprazole (PriLOSEC) [address] capsule Take 1 tablet by mouth in the morning. Active potassium chloride CR (Klor-Con) 10 mEq ER tablet potassium chloride ER 10 mEq tablet,extended release TAKE 1 TABLET BY MOUTH EVERY DAY 09/22/20 20 Active carvedilol (Coreg) 25 mg tablet Take 25 mg by mouth with breakfast and with evening meal. Active ferrous sulfate 325 (65 Fe) MG tablet Take 1 tablet by mouth in the morning and at bedtime. 11/01/19 23 Active amLODIPine (Norvasc) 5 mg tabletIndication s:Essential (primary) hypertension Take 1 tablet (5 mg) by mouth 2 times daily. 180 tablet 3 07/06/20 24 025 Active propafenone SR (Rythmol SR) 325 mg 12 hr capsuleIndicatio ns:Paroxysmal atrial fibrillation (CMS/HCC) TAKE 1 CAPSULE BY MOUTH EVERY 12 HOURS 180 capsule 3 09/18/20 24 Active ezetimibe (Zetia) 10 mg tabletIndication s:Hyperlipidemia , unspecified TAKE 1 TABLET BY MOUTH EVERY DAY 90 tablet 3 11/20/19 25 Active doxazosin (Cardura) 4 mg tabletIndication s:Essential hypertension Take 1 tablet (4 mg) by mouth at bedtime. 90 tablet 3 12/11/19 25 026 Active Additional Information Patient taking differently:4 mg oral Nightly,2 mg in am 4mg in pm, Reported on 01/25/2025 doxazosin (Cardura) 2 mg tabletIndication s:Essential hypertension TAKE 1 TAB ONCE DAILY IN THE MORNING. TAKE IN ADDITION TO THE 4 MG TABLET FOR A TOTAL OF 6 MG DAILY 90 tablet 3 12/11/19 25 Active furosemide (Lasix) 20 mg tabletIndication s:Nonrheumatic mitral valve regurgitation,Ch ronic diastolic congestive heart failure (CMS/HCC),Pulmon petty hypertension (CMS/HCC) TAKE 1 TABLET BY MOUTH EVERY OTHER DAY. TAKE ALTERNATING WITH THE 40 MG EVERY OTHER DAY. 45 tablet 3 12/11/19 25 Active Additional Information Patient not taking.Reported on 01/25/2025 glimepiride (Amaryl) 2 mg tablet Take 2 mg by mouth before breakfast. Active Entresto 24-26 mg tablet Take 1 tablet by mouth Twice daily at 6am and 6pm. 01/01/20 25 Active furosemide (Lasix) 40 mg tabletIndication s:Localized edema Take 1 tablet (40 mg) by mouth in the morning. 90 tablet 3 02/18/20 25 026 Active furosemide (Lasix) 40 mg tabletIndication s:Localized edema Take 1 tablet (40 mg) by mouth every other day. 45 tablet 3 02/25/20 24 025 Discontin ued(Reord er) Active Problems Problem Noted Date Diagnosed Date Hyperuricemia 08/18/2024 Monoclonal gammopathy of unknown significance (M IJAN) 04/17/2024 Status post biopsy of kidney 04/17/2024 Acute exacerbation of CHF (congestive heart fail ure) 02/19/2024 Acute hypoxemic respiratory failure 02/19/2024 Anemia of renal disease 02/19/2024 COVID-19 02/19/2024 Hyperlipidemia 02/19/2024 Nontraumatic intracerebral hemorrhage 02/19/2024 Pneumonia 02/19/2024 Proteinuria 02/19/2024 Pulmonary embolus 02/19/2024 Secondary hyperparathyroidism 02/19/2024 Sepsis 02/19/2024 Age-related nuclear cataract of left eye 024 Primary open angle glaucoma (POAG) of both eyes, mild stage 10/31/2023 Stage 3 chronic kidney disease 05/05/2023 0 10/16/2023 Hypercalcemia 04/29/2023 10/16/2023 Type 2 diabetes mellitus 04/23/2022 Other specified menopausal and perimenopausal di sorders 04/20/2021 Hypertensive disorder 08/25/2019 Mitral valve regurgitation 08/25/2019 Paroxysmal atrial fibrillation 08/25/2019 Malignant neoplasm of upper- outer quadrant of left breast in female, estrogen receptor positive 06/12/2018 Congestive heart failure 01/31/2018 History of intracranial hemorrhage Encounters Date Type Department Care Team Description 02/17/[address] [address] Gill Lee MA 02/17/[address] [address] Gill Lee MA Localized edema 01/25/2025 11:15 AM EDT Office Visit [address] [address] Erick Sandoval MD Paroxysmal atrial fibrillation (CMS/HCC) (Primary Dx); Nonrheumatic mitral valve regurgitation; Pulmonary hypertension (CMS/HCC); Essential hypertension; History of intracranial hemorrhage; Chronic diastolic congestive heart failure (CMS/HCC); Stage 3 chronic kidney disease, unspecified whether stage 3a or 3b CKD (CMS/HCC); Recurrent falls; Impairment of balance from Last 3 Months Family History Medical History Relation Name Comments Coronary artery disease Brother Coronary artery disease Father Coronary artery disease Mother Coronary artery disease Sister Relation Name Status Comments Brother Father Mother Sister Alive Social History Tobacco Use Types Packs/Day Years Used Date Smoking Tobacco: Never Smokeless Tobacco: Never Tobacco Cessation:Counseling Given: Not Answered Alcohol Use Standard Drinks/Week Comments Not Currently 0 (1 standard drink = 0.6 oz pur e alcohol) [place] Safety & Environment Answer Date Rec orded Fear of Current or Ex-Partner Not on file Emotionally Abused Not on file 11/14/2023 Physically Abused Not on file 11/14/2023 Sexually Abused Not on file 11/14/2023 Physically or Sexually Abused Not on file Comments Unknown Sex and Gender Information Value Date Recorded Sex Assigned at Female 01/22/2025 8:55 AM EDT Legal Sex Female 12:05 AM EDT Gender Identity Female 01/22/2025 8:55 AM EDT Sexual Orientation Heterosexual or Straight 10/2024 8:55 AM EDT Last Filed Vital Signs Vital Sign Reading Time Taken Comments Blood Pressure 135/67 01/25/2025 11:28 AM EDT Pulse 56 01/25/2025 11:28 AM EDT Temperature - - Respiratory Rate 11 08/18/2024 11:23 AM EST Oxygen Saturation 96% 01/25/2025 11:28 AM EDT Inhaled Oxygen Concentration - - Weight 68.5 kg (151 lb) 01/25/2025 11:28 AM EDT Height 165.1 cm (5' 5 ) 01/25/2025 11:28 AM EDT Body Mass Index 25.13 01/25/2025 11:28 AM EDT Plan of Treatment Health Maintenance Due Date Last Done Comments Diabetes: Hemoglobin A1C 1945 Medicare Annual Wellness (AWV) 1945 Diabetes: Retinopathy Screening 1954 Depression Screening 1956 Diabetes: Urine Protein Screening 1963 Adult Tetanus 1966 Zoster Vaccines (1 of 2) 1994 Fall Risk Screening 2009 COVID-19 Vaccine ( season) 2024 Influenza Vaccine (Season Ended) 2025 07/11/2022, 07/07/2021, 06/12/2021, Additional history exists Pneumococcal Vaccine: 50+ Years Completed 07/11/2022, 06/17/2018, 07/09/2017 HIB Vaccines Aged Out No longer eligi ble based on patient's age to complete this topic HPV Vaccines Aged Out No longer eligi ble based on patient's age to complete this topic IPV Vaccines Aged Out No longer eligi ble based on patient's age to complete this topic Meningococcal B Vaccine Aged Out No l onger eligible based on patient's age to complete this topic Meningococcal Vaccine Aged Out No myla lino eligible based on patient's age to complete this topic Rotavirus Vaccines Aged Out No longer eligible based on patient's age to complete this [place] [address] GENERIC OTHER Care Teams Investigative Shopper Relationship Specialty Start Date End Date Xavier Mcnamara MD [address] [place] [address] [place] [address] PCP - General 05/08/22
--- OUTSIDE RECORDS SUMMARY | 2025-03-15 09:05 | XMS_ITS | Encounter Summary ---
Author Organization [facility] Address [facility] [place] [address] Care Team Providers Care Tape Fastener Machine Operator Name Role Phone Xavier Mcnamara MD Primary Care Provider [phone] Source Comments In the event this information is protected by the Federal Confidentiality of Alcohol and Drug AbusePatient Records regulations: The Federal rules restrict any use of the information to criminally investigate or prosecute any alcohol or drug abuse patient.[facility] Encounter Details Date Type Department Care Team (Late st Contact Info) Description 04/08/2024 Patient Msg [facility] [address] [place] [address] Provider, [facility] Pre Procedure Instructions 04/16/2024 Social History Tobacco Use Types Packs/Day Years Used Date Smoking Tobacco: Never Passive Smoke Exposure: Never Smokeless Tobacco: Never Alcohol Use Standard Drinks/Week Comments Yes 0 (1 standard drink = 0.6 oz pur e alcohol) very rare PHQ-2 Answer Date Recorded PHQ-2 score 0 03/23/2024 Area Deprivation Index Answer Date Ty rded National Score (1-100), lower number is lower ri sk 78 03/24/2024 State Score (1-10), lower number is lower risk 6 03/24/2024 Data from: https://www.neighborhoodatlas.[facility].edu/. Last address used for calculation [address] 03/24/2024 Comments No Sex and Gender Information Value Date Recorded Sex Assigned at Not on file Legal Sex Female 9:12 AM EDT Gender Identity Not on file Sexual Orientation Not on file documented as of this encounter Plan of Treatment Upcoming Encounters Date Type Department Care Team (Latest Contact Info) Description 05/31/2025 11:00 AM EDT Office Visit [facility] [address] [place] [address] 6 month follow up labs 1 week prior 06/14/2025 10:20 AM EDT Visit (SP) Office Hematology/Oncology [address] [place] [address] Sandeep Clark MD [address] [place] [address] 6 month follow up labs 1 week prior- documented as of this encounter Visit Diagnoses Not on filedocumented in this encounter Care Teams Tape Fastener Machine Operator Relationship Specialty Start Date End Date Xavier Mcnamara MD PCP - General Family Medicine 05/30/18 documented as of this encounter
--- OUTSIDE RECORDS SUMMARY | 2025-03-15 09:05 | XMS_ITS | Clinical Summary ---
Author Organization [facility] Address [facility] [id number] [address] [place] [address] Care Team Providers Care Bridge Ironworker Helper Name Role Phone Xavier Mcnamara MD Primary Care Provider [phone] Social History Tobacco Use Types Packs/Day Years Used Date Smoking Tobacco: Never Assessed Childcare Answer Date Recorded Childcare Unknown 03/05/2019 Employment Answer Date Recorded Employment Unknown 03/05/2019 Purpose - Life Answer Date Recorded Purpose and direction in life Unknown Comments Unknown Sex and Gender Information Value Date Recorded Sex Assigned at Not on file Legal Sex Female 9:20 AM EDT Gender Identity Not on file Sexual Orientation Not on file Plan of Treatment Not on file Medical Devices Not on file Insurance MEDICARE [facility] [place] [address] Care Teams Bridge Ironworker Helper Relationship Specialty Start Date End Date Xavier Mcnamara MD PCP - General 07/03/18
--- OUTSIDE RECORDS SUMMARY | 2025-03-15 09:05 | XMS_ITS | Encounter Summary ---
Author Organization [facility] Address [address] [place] [address] Care Team Providers Care Speech Language Pathologist Travel Name Role Phone Xavier Mcnamara MD Primary Care Provider [phone] Reason for Visit * Reason Comments Med Refill Encounter Details Date Type Department Care Team (Late st Contact Info) Description 02/05/2023 Refill [facility] [address] [place] [address] Clarence Gordon CNP Essential hypertension Social History Tobacco Use Types Packs/Day Years Used Date Smoking Tobacco: Never Smokeless Tobacco: Never Alcohol Use Standard Drinks/Week Comments Not Currently 0 (1 standard drink = 0.6 oz pur e alcohol) Comments Unknown Sex and Gender Information Value Date Recorded Sex Assigned at Female 01/22/2025 8:55 AM EDT Legal Sex Female 12:05 AM EDT Gender Identity Female 01/22/2025 8:55 AM EDT Sexual Orientation Heterosexual or Straight 10/2024 8:55 AM EDT COVID-19 Exposure Response Date Recorded In the last 10 days, have yo u been in contact with someone who was confirmed or suspected to have Coronavirus/COVID-19? No / Unsure 01/14/2023 2:19 PM EDT documented as of this encounter Plan of Treatment Not on file documented as of this encounter Visit Diagnoses Diagnosis Essential hypertension Unspecified essential hypertension documented in this encounter Care Teams Speech Language Pathologist Travel Relationship Specialty Start Date End Date Xavier Mcnamara MD [address] [facility] [address] [address] PCP - General 05/08/22 documented as of this encounter
--- OUTSIDE RECORDS SUMMARY | 2025-03-15 09:05 | XMS_ITS | Encounter Summary ---
Author Organization [facility] Address [address] [place] [address] Care Team Providers Care Crust Sorter Name Role Phone Xavier Mcnamara MD Primary Care Provider + Shena Mary RN Unavailable [phone] Reynaldo Herman Unavailable Nataliya Iyer PA-C Unavailable [phone] Source Comments In the event this information is protected by the Federal Confidentiality of Alcohol and Drug AbusePatient Records regulations: The Federal rules restrict any use of the information to criminally investigate or prosecute any alcohol or drug abuse patient.[facility] Encounter Details Date Type Department Care Team (Latest Contact Info) Description 06/02/2018 H&P External-NonCCF Provider, DMITRY Arenas Do not enter address information under generic External Provider. Social History Tobacco Use Types Packs/Day Years Used Date Smoking Tobacco: Never Assessed Comments Unknown Sex and Gender Information Value Date Recorded Sex Assigned at Not on file Legal Sex Female 9:12 AM EDT Gender Identity Not on file Sexual Orientation Not on file documented as of this encounter Plan of Treatment Upcoming Encounters Date Type Department Care Team (Latest Contact Info) Description 05/31/2025 11:00 AM EDT Office Visit [facility] [address] [place] [address] 6 month follow up labs 1 week prior 06/14/2025 10:20 AM EDT Visit (SP) Office Hematology/Oncology [address] [place] [address] Sandeep Clark MD [address] [facility] [address] [place] [address] 6 month follow up labs 1 week prior- documented as of this encounter Visit Diagnoses Not on filedocumented in this encounter Care Teams Crust Sorter Relationship Specialty Start Date End Date Xavier Mcnamara MD PCP - General Family Medicine 05/30/18 Shena Mary RN [address] [place] [address] Specialty Fruit Or Nut Grower Hematology/Oncology 06/16/18 09/30/19 Reynaldo Herman [address] [place] [place] [address] Physician Hematology/Oncology 06/16/18 09/30/19 Nataliya Iyer PADiliaC [address] [place] [address] Physician Division Engineer Hematology/Oncology 06/16/18 0 documented as of this encounter
--- OUTSIDE RECORDS SUMMARY | 2025-03-15 09:05 | XMS_ITS | Encounter Summary ---
Author Organization [facility] Address [address] [place] [address] Care Team Providers Care Care Analyst Name Role Phone Xavier Mcnamara MD Primary Care Provider [phone] Source Comments In the event this information is protected by the Federal Confidentiality of Alcohol and Drug AbusePatient Records regulations: The Federal rules restrict any use of the information to criminally investigate or prosecute any alcohol or drug abuse patient.[facility] Reason for Visit * Reason Comments Orders Encounter Details Date Type Department Care Team (Late st Contact Info) Description 05/05/[address] [place] [address] Sandeep Clark MD [address] [place] [address] [address] [place] [address] Orders Social History Tobacco Use Types Packs/Day Years [...] is lower risk 6 03/24/2024 Data from: https://www.neighborhoodatlas.medicine.[facility]/. Last address used for calculation [address] 03/24/2024 Comments No Sex and Gender Information Value Date Recorded Sex Assigned at Not on file Legal Sex Female 9:12 AM EDT Gender Identity Not on file Sexual Orientation Not on file documented as of this encounter Functional Status * Are you deaf or do you have serious difficulty hearing? Answer Date of Assessment Author No 04/17/2024 1:29 PM EDT Tessie Ram RN * Are you blind or do you have serious difficulty seeing, even when wearing glasses? Answer Date of Assessment Author No 04/17/2024 1:29 PM EDT Tessie Ram RN * Do you have serious difficulty walking or climbing stairs? Answer Date of Assessment Author No 04/17/2024 1:29 PM EDT Tessie Ram RN * Do you have difficulty dressing or bathing? Answer Date of Assessment Author No 04/17/2024 1:29 PM EDT Tessie Ram RN * Because of a physical, mental, or emotional condition, do you have difficulty doing errands alone such as visiting a doctor's office or shopping? Answer Date of Assessment Author No 04/17/2024 1:29 PM EDT Tessie Ram RN documented as of this encounter Mental Status * Because of a physical, mental, or emotional condition, do you have serious difficulty concentrating, remembering, or making decisions? Answer Entry Date Author No 04/17/2024 1:29 PM EDT Tessie Ram RN documented in this encounter Miscellaneous Notes * Telephone Encounter - Jennifer Aviles - 05/11/2024 2:20 PM EDT Donna New spoke with Eliane. Patient is scheduled for EGD with Dr Contreras on 05/26. Jennifer Covington * Telephone Encounter - Aileen Miller - 05/05/2024 1:56 PM EDT Records faxed to [facility]. * Telephone Encounter - Debbie Chavez - 05/05/2024 1:21 PM EDT Spoke to Marisol at [facility] at [phone]. She stated they are booking out until August. Marisol stated if we sent over the referral & EGD order they should be able to get patient in sooner like in April for her procedure. Lisa: Can you send referral information over to their office to look over?? Thank you. TEMO Adhikari * Telephone Encounter - Zuleyka Srivastava RN - 05/05/2024 12:04 PM EDT Debbie: Please send to local, if unable to proceed with [facility]. * Telephone Encounter - Debbie Chavez - 05/05/2024 11:[address] Clark/Zuleyka: Can we set the patient up with a local gastrologist?? Please advise. Thank you. TEMO Adhikari * Telephone Encounter - Paula Corea - 05/05/2024 10:24 AM EDT Vandana is calling Sandeep Clark MD today to request another provider's name other than Dr. Ballesteros to do patient's EGD. Dr. Ballesteros' schedule is currently on hold. Please call patient and advise. Patient has been identified by name and birthdate. Duration of symptoms: N/A Person calling: self Call patient at: at home [phone] (home) [phone] (work) [phone] (cell) Was an appointment scheduled: No Closing statement: Results or non-symptom based questions: Thank you for calling [facility], your call will be returned within the next business day. Paula Corea documented in this encounter Plan of Treatment Upcoming Encounters Date Type Department Care Team (Latest Contact Info) Description 05/31/2025 11:00 AM EDT Office Visit [facility] [address] [facility] [place] [address] 6 month follow up labs 1 week prior 06/14/2025 10:20 AM EDT Visit (SP) Office Hematology/Oncology [address] [facility] [place] [address] Sandeep Clark MD [address] [place] [place] [address] 6 month follow up labs 1 week prior- documented as of this encounter Visit Diagnoses Not on filedocumented in this encounter Care Teams Care Analyst Relationship Specialty Start Date End Date Xavier Mcnamara MD PCP - General Family Medicine 05/30/18 documented as of this encounter
--- OUTSIDE RECORDS SUMMARY | 2025-03-15 09:05 | XMS_ITS | Clinical Summary ---
Author Organization [facility] Address [address] [place] [address] Care Team Providers Care Supervisor Reactor Fueling Name Role Phone Unavailable Primary Care Provider Unavailabl e Allergies Active Allergy Reactions Criticality Noted Date Comments Statins 10/31/2023 Other Reaction(s): joint pain, muscle pain Medications metFORMIN (Glucophage) 500 MG tablet Take 1 tablet by mouth in the morning and 1 tablet before bedtime. Active carvedilol (Coreg) 25 MG tablet Take 0.5 tablets twice a day by oral route for 90 days. Active omeprazole (PriLOSEC) [address] capsule Take 1 capsule by mouth in the morning. Active potassium chloride CR (Klor-Con) 10 MEQ ER tablet Take 10 mEq by mouth in the morning. Active propafenone SR (Rythmol SR) 325 MG 12 hr capsule Take 1 capsule by mouth every 12 (twelve) hours 3 Active furosemide (Lasix) 40 MG tablet Take 40 mg by mouth in the morning. Active ezetimibe (Zetia) 10 MG tablet TAKE 1 TABLET BY MOUTH EVERY DAY FOR 30 DAYS Active anastrozole (Arimidex) 1 MG chemo tablet Take 1 tablet by mouth Daily. 3 Active amLODIPine (Norvasc) 5 MG tablet Take 1 tablet by mouth in the morning and 1 tablet before bedtime. 3 Active aspirin 81 MG chewable tablet Chew 1 tablet every day by oral route. Active latanoprost (Xalatan) 0.005 % ophthalmic solution Ophthalmic for 30 Days Active doxazosin (Cardura) 4 MG tablet Take 4 mg by mouth at bedtime 3 Active ferrous sulfate 325 (65 Fe) MG tablet TAKE 1 TABLET BY MOUTH TWICE A DAY for 90 Active Active Problems Problem Noted Date Diagnosed Date Age-related nuclear cataract of left eye 024 Primary open angle glaucoma (POAG) of both eyes, mild stage 10/31/2023 Family History Medical History Relation Name Comments Cataracts Father Cataracts Mother Relation Name Status Comments Father Mother Social History Tobacco Use Types Packs/Day Years Used Date Smoking Tobacco: Never Comments Unknown Sex and Gender Information Value Date Recorded Sex Assigned at Not on file Legal Sex Female 6:36 PM EDT Gender Identity Not on file Sexual Orientation Not on file Plan of Treatment Not on [place] [address] [facility] [employer]
[2025-03-15 09:36] LABS: Hematocrit 41.7 % (36.0-48.0); Hemoglobin 13.8 g/dL (12.0-16.0); Mean Corpuscular HGB Conc 33.1 g/dL (29.9-35.2); Mean Corpuscular Hemoglobin 30.3 pg (26.7-34.0); Mean Corpuscular Volume 91.4 fL (81.0-99.0); Mean Platelet Volume 10.9 fL (9.5-13.5); Platelet Count 269 10^3/uL (150-450); Red Blood Count 4.56 10^6/uL (4.20-5.40); Red Cell Distribution Width 13.3 % (11.0-15.0); White Blood Count 12.2 10^3/uL (4.0-11.0)
[2025-03-15 09:53] LABS: Albumin Level 3.6 g/dL (3.4-5.0); Anion Gap 11.3; BUN Creatinine Ratio 23.8; Calcium 9.4 mg/dL (8.5-10.1); Chloride 104 mmol/L (98-107); Estimated GFR (African America 29 (>=60 mL/min/1.73m^2); Estimated GFR (Non-African Ame 24 (>=60 mL/min/1.73m^2); Glucose 162 mg/dL (74-106); Phosphorus 3.2 mg/dL (2.6-4.7); Potassium 4.3 mmol/L (3.5-5.1); Sodium 142 mmol/L (136-145); Uric Acid 9.3 mg/dL (2.6-6.0)
[2025-03-15 10:37] LABS: Bilirubin Urine NEGATIVE (NEGATIVE); Blood Urine SMALL (NEGATIVE); Clarity Urine SL CLOUDY (CLEAR); Color Urine YELLOW (YELLOW); Glucose Urine UA NEGATIVE (NEGATIVE); Ketones Urine NEGATIVE (NEGATIVE); Leukocyte Esterase Urine MODERATE (NEGATIVE); Nitrite Urine NEGATIVE (NEGATIVE); Protein Urine 100 mg/dL (NEG/TRACE); Urobilinogen Urine 0.2 EU/dL (0.2-1.0)
[2025-03-15 10:41] LABS: Creatinine Urine Random 130.65 mg/dL (20.00-300.00); Protein Creatinine Ratio Urine 0.84; Total Protein Urine Random 109.7 mg/dL (<=11.9)
[2025-03-15 10:42] LABS: Urine Culture Indicated YES-FRMC
[2025-03-15 11:06] LABS: Bacteria Urine MODERATE #/HPF (NONE SEEN); Cast Seen? NONE SEEN #/LPF (NONE SEEN); Crystals Seen? None Seen #/HPF (None Seen); Mucus Urine NONE SEEN (NONE SEEN); Squamous Epithelial Cell Urine MANY #/LPF (NONE/RARE); WBC Urine 20-50 #/HPF (NONE SEEN)
[2025-03-16 11:08] LABS: PTH, Intact 88 pg/mL (15-65)
[2025-03-17 16:09] LABS: Albumin 3.6 g/dL (2.9-4.4); Alpha-1-Globulin 0.3 g/dL (0.0-0.4); Alpha-2-Globulin 0.9 g/dL (0.4-1.0); Free Kappa Lt Chains,S 52.8 mg/L (3.3-19.4); Free Lambda Lt Chains,S 23.9 mg/L (5.7-26.3); Gamma Globulin 1.2 g/dL (0.4-1.8); Immunoglobulin A, Qn, Serum 299 mg/dL (64-422); Immunoglobulin G, Qn, Serum 851 mg/dL (586-1602); Immunoglobulin M, Qn, Serum 443 mg/dL (26-217); Kappa/Lambda Ratio,S 2.21 (0.26-1.65); Protein, Total 6.9 g/dL (6.0-8.5)
== END 2025-03-15 08:54 | disposition home or self-care (01) ==
LOC: LAB 09:03
PROVIDERS: PCP Family Medicine; Visit Provider Internal Medicine
DX: E79.0 Hyperuricemia without signs of inflammatory arthritis and tophaceous disease (principal); R80.9 Proteinuria, unspecified; E83.52 Hypercalcemia; N18.9 Chronic kidney disease, unspecified; D63.1 Anemia in chronic kidney disease; N25.81 Secondary hyperparathyroidism of renal origin
CPT/HCPCS: 36415; 80069; 81001; 82306; 82570; 82728; 82784; 83521; 83735; 83970; 84155; 84156; 84165; 84166; 84550; 85027; 86334; 86335; 87086; 87088; 87186

== ENCOUNTER 2025-07-06 09:44 | Outpatient (OUT) | payer MEDICARE, OTHER, SELFPAY ==
--- OUTSIDE RECORDS SUMMARY | 2025-07-06 09:46 | XMS_ITS | Clinical Summary ---
Author Organization [facility] Address [address] [place] [address] Care Team Providers Care Masonry Inspector Name Role Phone Xavier Mcnamara MD Primary Care Provider Allergies Active Allergy Reactions Criticality Noted Date Comments Hdwvmzr-Rug-Pnt Reductase Inhibitors Other 01/21/2018 Other reaction(s): AOF Medications anastrozole (Arimidex) 1 mg chemo tablet anastrozole 1 mg tablet TAKE 1 TABLET BY MOUTH EVERY DAY 07/09/20 22 Active aspirin 81 mg chewable tablet in the morning. Active ergocalciferol (Vitamin D-2) 1.25 MG (97924 Units) capsule ergocalciferol (vitamin D2) 1,250 mcg [...] times daily. 180 tablet 3 07/06/20 24 Active propafenone SR (Rythmol SR) 325 mg [...] EVERY OTHER DAY. 45 tablet 3 12/11/19 Active Additional Information Patient not taking.Reported on 01/25/2025 glimepiride (Amaryl) 2 mg tablet Take 2 mg by mouth before breakfast. Active Entresto 24-26 mg tablet Take 1 tablet by mouth Twice daily at 6am and 6pm. 01/01/20 Active furosemide (Lasix) 40 mg tabletIndication s:Localized edema Take 1 tablet (40 mg) by mouth in the morning. 90 tablet 3 02/18/20 25 026 Active Active Problems Problem Noted Date Diagnosed Date Hyperuricemia 08/18/2024 Monoclonal gammopathy of unknown significance (M JIAN) 04/17/2024 Status post biopsy of kidney 04/17/2024 [...] heart failure 01/31/2018 History of intracranial hemorrhage Family History Medical History Relation Name Comments [...] Risk Screening 2009 COVID-19 Vaccine ( season) 2025 Influenza Vaccine (#1) 2025 , 07/07/2021, 06/12/2021, Additional history exists Pneumococcal Vaccine: [...] age to complete this [place] [phone] GENERIC OTHER Care Teams Masonry Inspector Relationship Specialty Start Date End Date Xavier Mcnamara MD [address] [address] PCP - General 05/08/22
--- OUTSIDE RECORDS SUMMARY | 2025-07-06 09:47 | XMS_ITS | Encounter Summary ---
Author Organization [facility] Address [facility] [place] [address] Care Team Providers Care Coo Name Role Phone Xavier Mcnamara MD Primary Care Provider [phone] Source Comments In the event this information is protected by the Federal Confidentiality of Alcohol and Drug AbusePatient Records regulations: The Federal rules restrict any use of the information to criminally investigate or prosecute any alcohol or drug abuse patient.[facility] Encounter Details Date Type Department Care Team (Late st Contact Info) Description 04/08/2024 Patient Msg [facility] [address] [place] [address] Provider, [facility] Pre Procedure Instructions 04/16/2024 Social [...] is lower risk 6 03/24/2024 Data from: https://www.neighborhoodatlas.[facility].edu/. Last address used for calculation [address] 03/24/2024 Comments No Sex and Gender Information Value Date Recorded Sex Assigned at Not on file Legal Sex Female 9:12 AM EDT Gender Identity Not on file Sexual Orientation Not on file documented as of this encounter Plan of Treatment Upcoming Encounters Date Type Department Care Team (Latest Contact Info) Description 12/13/2025 10:30 AM EDT Office Visit [facility] [address] [place] [address] lab 12/20/2025 10:40 AM EDT Visit (SP) Office Hematology/Oncology [address] [place] [address] Sandeep Clark MD [address] [place] [address] 6 month follow up,labs 1 week prior documented as of this encounter Visit Diagnoses Not on filedocumented in this encounter Care Teams Coo Relationship Specialty Start Date End Date Xavier Mcnamara MD PCP - General Family Medicine 05/30/18 documented as of this encounter
--- OUTSIDE RECORDS SUMMARY | 2025-07-06 09:47 | XMS_ITS | Clinical Summary ---
Author Organization [employer] [facility] Address [id number] [address] [place] [address] Care Team Providers Care Windows Security Analyst Name Role Phone Xavier Mcnamara MD Primary Care Provider [phone] Social History Tobacco Use Types Packs/Day Years [...] Medical Devices Not on file Insurance MEDICARE [facility] LIFE Care Teams Windows Security Analyst Relationship Specialty Start Date End Date Xavier Mcnamara MD PCP - General 07/03/18
--- OUTSIDE RECORDS SUMMARY | 2025-07-06 09:47 | XMS_ITS | Clinical Summary ---
Author Organization [facility] Address [address] [facility] [place] [address] Care Team Providers Care Fur Finisher Tailor Name Role Phone Unavailable Primary Care Provider Unavailabl e Source Comments The following information is NOT included in Care Everywhere downloads:Psychiatric notes, ECG results, Cardiac Rehab notes, Pulmonary Function notes, data from SmartForms (includes but not limited toPregnancy data,audiograms, eye exams, pre-surgical evaluation notes, well-child exam data).[facility] Social History Tobacco Use Types Packs/Day Years Used Date Smoking Tobacco: Never Assessed Comments Unknown Sex and Gender Information Value Date Recorded Sex Assigned at Not on file Legal Sex Female 12:11 PM EDT Gender Identity Not on file Sexual Orientation Not on file Last Filed Vital Signs Vital Sign Reading Time Taken Comments Blood Pressure 175/80 05/19/2022 11:30 AM EDT Pulse 68 05/19/2022 11:30 AM EDT Temperature - - Respiratory Rate 16 05/19/2022 11:30 AM EDT Oxygen Saturation 98% 05/19/2022 11:30 AM EDT Inhaled Oxygen Concentration - - Weight - - Height - - Body Mass Index - - Plan of Treatment Health Maintenance Due Date Last Done Comments Tdap Booster 1962 Hepatitis A (HAV) Vaccine (optional start 19+ years) 0 1963 Pneumococcal Vaccine(s) (50+ yrs) (1 of 1 - PCV) 10/10 Shingles (RZV) Vaccine (1 of 2) 1994 Hepatitis B (HBV) Vaccine (optional start 60+ years) 0 2004 Bone Densitometry 2009 RSV vaccine (adult) (1 - 1-dose 75+ series) 2019 Annual Wellness Visit (G0438) 04/23/2023 COVID-19 Vaccine ( - 2023-25 season) 2025 Influenza Vaccine (#1) 2025 Pap Smear Discontinued Insurance MEDICARE - [place]
--- OUTSIDE RECORDS SUMMARY | 2025-07-06 09:47 | XMS_ITS | Clinical Summary ---
Author Organization [facility] Address [address] [place] [address] Care Team Providers Care Vehicle Damage Appraiser Name Role Phone Unavailable Primary Care Provider [...] of Treatment Not on file [place] [address] [facility] [employer]
--- OUTSIDE RECORDS SUMMARY | 2025-07-06 09:47 | XMS_ITS ---
Author Organization [facility] Address [address] [place] [address] Care Team Providers Care Channel Cementer Outsole Machine Name Role Phone Xavier Mcnamara MD Primary Care Provider [phone] Active Problems Problem Noted Date Diagnosed Date [...] ZOLEDRONIC ACID FOR HYPERCALCEMIA 04/30/2023 06/23/2024 zoledronic lf-[id number]-4 .9NaCl (ZOMETA) Other Sandeep Clark MD 1 of 1 cycle started BONE MODIFYING AGENT: $$$$ - Q180D IF CrCl IS LESS THAN 30 ML/MIN 07/20/20 21 04/27/2022 denosumab (PROLIA) Other Sandeep Clark MD Treatment not started
--- OUTSIDE RECORDS SUMMARY | 2025-07-06 09:47 | XMS_ITS | Encounter Summary ---
Author Organization [facility] Address [address] [address] Care Team Providers Care Clerical Administrative Assistant Name Role Phone Xavier Mcnamara MD Primary Care Provider [phone] Reason for Visit * Reason Comments Med Refill Encounter Details Date Type Department Care Team (Late st Contact Info) Description 02/05/2023 Refill [facility] [address] [place] [address] Clarence Gordon CNP Essential hypertension [...] hypertension documented in this encounter Care Teams Clerical Administrative Assistant Relationship Specialty Start Date End Date Xavier Mcnamara MD [address] [facility] [address] [address] PCP - General 05/08/22 documented as of this encounter
--- OUTSIDE RECORDS SUMMARY | 2025-07-06 09:47 | XMS_ITS | Encounter Summary ---
Author Organization [facility] Address [address] [place] [address] Care Team Providers Care Garbage Pick Up Worker Name Role Phone Xavier Mcnamara MD Primary Care Provider + Shena Mary RN Unavailable [phone] Reynaldo Herman Unavailable Nataliya Iyer PA-C Unavailable [phone] Source Comments In the event this information is protected by the Federal Confidentiality of Alcohol and Drug AbusePatient Records regulations: The Federal rules restrict any use of the information to criminally investigate or prosecute any alcohol or drug abuse patient.[facility] Encounter Details Date Type Department Care Team [...] Description 12/13/2025 10:30 AM EDT Office Visit [facility] [address] [place] [place] [address] lab 12/20/2025 10:40 AM EDT Visit (SP) Office Hematology/Oncology [address] [place] [address] Sandeep Clark MD [address] [place] [address] 6 month follow up,labs 1 week prior documented as of this encounter Visit Diagnoses Not on filedocumented in this encounter Care Teams Garbage Pick Up Worker Relationship Specialty Start Date End Date Xavier Mcnamara MD PCP - General Family Medicine 05/30/18 Shena Mary RN [address] [place] [address] Specialty Sand Technologist Hematology/Oncology 06/16/18 09/30/19 Reynaldo Herman [address] [place] [address] Physician Hematology/Oncology 06/16/18 09/30/19 Nataliya Iyer, PADiliaC [address] [place] [address] Physician Cold Saw Operator Hematology/Oncology 06/16/18 0 documented as of this encounter
--- OUTSIDE RECORDS SUMMARY | 2025-07-06 09:47 | XMS_ITS | Clinical Summary ---
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 04/08/20 21 Active amLODIPine (NORVASC) 2.5 mg tablet Take 5 [...] BY MOUTH EVERY DAY 90 tablet 2 08/16/20 23 Active Additional Information Patient not taking.Reason: Discontinued by Another Health Care Provider, Reported on 06/14/2025 Lactobacillus acidophilus (PROBIOTIC ORAL) Take by mouth. Active glimepiride (AMARYL) 2 mg tablet TAKE 1 TABLET BY MOUTH EVERY DAY WITH BREAKFAST OR THE FIRST MAIN MEAL OF THE DAY 09/28/19 25 Active allopurinol (ZYLOPRIM) 100 mg tablet Take 1 tablet by mouth once daily. 03/25/20 25 Active ENTRESTO 24-26 mg tablet Take 1 tablet by mouth two times a day. Active calcium-cholecalci ferol, D3, (OSCAL+D 250) 250-125 mg-unit per tabletIndications: Encounter for screening for osteoporosis,Asymp tomatic postmenopausal status,Other specified menopausal and perimenopausal disorders,Malignan t neoplasm of upper-outer quadrant of left breast in female, estrogen receptor positive (HCC) Take 1 tablet by mouth twice daily. 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 Dx); Malignant neoplasm of upper-outer quadrant of left breast in female, estrogen receptor positive (HCC); Monoclonal gammopathy of renal significance (MGRS); Stage 3 chronic kidney disease, unspecified whether stage 3a or 3b CKD (HCC); Type 2 diabetes mellitus with diabetic polyneuropathy, unspecified whether ocean transportation intermediary insulin use (HCC); Cancer of breast, intraductal, left; Breast screening; Encounter for screening mammogram for malignant neoplasm of breast; 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 Last address used for calculation [address] 03/24/2024 Comments No Sex and Gender Information Value Date Recorded Sex Assigned at Not on file Legal Sex Female 9:12 AM EDT Gender Identity Not on file Sexual Orientation Not on file Last Filed Vital Signs Vital Sign Reading Time Taken Comments Blood Pressure 120/55 06/14/2025 10:14 AM EDT Pulse 61 06/14/2025 10:14 AM EDT Temperature 36.2 C (97.1 F) 06/14/2025 10:14 AM EDT Respiratory Rate 16 06/14/2025 10:1 4 AM EDT Oxygen Saturation 96% 06/14/2025 10: 14 AM EDT Inhaled Oxygen Concentration - - Weight 71.2 kg (156 lb 15.5 oz) 025 10:14 AM EDT Height 160.2 cm (5' 3.07 ) 06/14/2025 1 0:14 AM EDT Body Mass Index 27.74 06/14/2025 10:14 AM EDT Plan of Treatment Upcoming Encounters Date Type Department Care Team (Latest Contact Info) Description 12/13/2025 10:30 AM EDT Office Visit [facility] [address] [place] [address] lab 12/20/2025 10:40 AM EDT Visit (SP) Office Hematology/Oncology [address] [place] [address] Sandeep Clark MD [address] [place] [address] 6 month follow up,labs 1 week prior Health Maintenance Due Date Last Done Comments Covid-19 Vaccine (#1) 1950 Annual PCP Team Chronic Dise ase Visit 1962 Anxiety Screening 1962 Depression Screening 1962 DTaP,Tdap,Td Vaccine (1 - Tdap) 1963 Shingrix Vaccine (1 of 2) 1963 Medicare Annual Wellness Visit 09/23/2009 Bone Density Screening 2009 RSV Vaccine (1 - 1-dose 75+ series) 2019 Advance Directive Discussion 09/23/2024 Influenza Vaccine (#1) 2025 2, 07/07/2021, 06/12/2021, Additional history exists Hemoglobin/Hematocrit 05/31/2026 05/31/2025 , 11/27/2024, 10/19/2024, Additional history exists Serum Creatinine 05/31/2026 05/31/2025, 03/2025, 10/19/2024, Additional history exists Diabetes Screening 05/31/2028 05/31/2025, 0 11/27/2024, 10/19/2024, Additional history exists Pneumococcal Vaccine: 50+ Completed 2021, 06/17/2018, 06/17/2018, Additional history exists Procedures Procedure Name Priority Date/Time Associated Diagnosis Comments KAPPA/DIAZ,FREE,SER Routine 05/31/2025 1 0:57 AM EDT 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) Stage 3 chronic kidney disease, unspecified whether stage 3a or 3b CKD (HCC) Malignant neoplasm of upper-outer quadrant of left breast in female, estrogen receptor positive (HCC) IMMUNOFIXATION SCREEN, SERUM Routine 05/31/2025 10:57 AM EDT 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) Stage 3 chronic kidney disease, unspecified whether stage 3a or 3b CKD (HCC) Malignant neoplasm of upper-outer quadrant of left breast in female, estrogen receptor positive (HCC) IMMUNOGLOBULINS LIZZIE Routine 05/31/2025 1 0:57 AM EDT 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) Stage 3 chronic kidney disease, unspecified whether stage 3a or 3b CKD (HCC) Malignant neoplasm of upper-outer quadrant of left breast in female, estrogen receptor positive (HCC) PROTEIN TOTAL BLD Routine 05/31/2025 10: 57 AM EDT 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) Stage 3 chronic kidney disease, unspecified whether stage 3a or 3b CKD (HCC) Malignant neoplasm of upper-outer quadrant of left breast in female, estrogen receptor positive (HCC) PROTEIN ELECTROPHORESIS SERUM (P) Routine 05/31/2025 10:57 AM EDT 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) Stage 3 chronic kidney disease, unspecified whether stage 3a or 3b CKD (HCC) Malignant neoplasm of upper-outer quadrant of left breast in female, estrogen receptor positive (HCC) CA 15-3 BLD Routine 05/31/2025 10:57 AM EDT 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) Stage 3 chronic kidney disease, unspecified whether stage 3a or 3b CKD (HCC) Malignant neoplasm of upper-outer quadrant of left breast in female, estrogen receptor positive (HCC) FOLATE SERUM Routine 05/31/2025 10:57 AM EDT 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) Stage 3 chronic kidney disease, unspecified whether stage 3a or 3b CKD (HCC) Malignant neoplasm of upper-outer quadrant of left breast in female, estrogen receptor positive (HCC) VITAMIN B12 BLOOD Routine 05/31/2025 10: 57 AM EDT 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) Stage 3 chronic kidney disease, unspecified whether stage 3a or 3b CKD (HCC) Malignant neoplasm of upper-outer quadrant of left breast in female, estrogen receptor positive (HCC) FERRITIN BLD Routine 05/31/2025 10:57 AM EDT 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) Stage 3 chronic kidney disease, unspecified whether stage 3a or 3b CKD (HCC) Malignant neoplasm of upper-outer quadrant of left breast in female, estrogen receptor positive (HCC) IRON + TIBC Routine 05/31/2025 10:57 AM EDT 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) Stage 3 chronic kidney disease, unspecified whether stage 3a or 3b CKD (HCC) Malignant neoplasm of upper-outer quadrant of left breast in female, estrogen receptor positive (HCC) CALCIUM IONIZED BLOOD Routine 05/31/2025 10:57 AM EDT 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) Stage 3 chronic kidney disease, unspecified whether stage 3a or 3b CKD (HCC) Malignant neoplasm of upper-outer quadrant of left breast in female, estrogen receptor positive (HCC) URIC ACID BLOOD Routine 05/31/2025 10:57 AM EDT 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) Stage 3 chronic kidney disease, unspecified whether stage 3a or 3b CKD (HCC) Malignant neoplasm of upper-outer quadrant of left breast in female, estrogen receptor positive (HCC) MONOCLONAL PROTEIN, SERUM (BLOOD) Routine 05/31/2025 10:57 AM EDT 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) Stage 3 chronic kidney disease, unspecified whether stage 3a or 3b CKD (HCC) Malignant neoplasm of upper-outer quadrant of left breast in female, estrogen receptor positive (HCC) PROTEIN ELECTROPHORESIS SERUM W/INTERP Routine 05/31/2025 10:57 AM EDT 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) Stage 3 chronic kidney disease, unspecified whether stage 3a or 3b CKD (HCC) Malignant neoplasm of upper-outer quadrant of left breast in female, estrogen receptor positive (HCC) PHOSPHORUS INORGANIC Routine 05/31/2025 10:57 AM EDT 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) Stage 3 chronic kidney disease, unspecified whether stage 3a or 3b CKD (HCC) Malignant neoplasm of upper-outer quadrant of left breast in female, estrogen receptor positive (HCC) LD LACTATE DEHYDRO Routine 05/31/2025 10 :57 AM EDT 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) Stage 3 chronic kidney disease, unspecified whether stage 3a or 3b CKD (HCC) Malignant neoplasm of upper-outer quadrant of left breast in female, estrogen receptor positive (HCC) COMPREHENSIVE METABOLIC PANEL Routine 05/31/2025 10:57 AM EDT 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) Stage 3 chronic kidney disease, unspecified whether stage 3a or 3b CKD (HCC) Malignant neoplasm of upper-outer quadrant of left breast in female, estrogen receptor positive (HCC) CBC + DIFF Routine 05/31/2025 10:57 AM EDT 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) Stage 3 chronic kidney disease, unspecified whether stage 3a or 3b CKD (HCC) Malignant neoplasm of upper-outer quadrant of left breast in female, estrogen receptor positive (HCC) B2 MICROGLOBULIN B Routine 05/31/2025 10 :57 AM EDT 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) Stage 3 chronic kidney disease, unspecified whether stage 3a or 3b CKD (HCC) Malignant neoplasm of upper-outer quadrant of left breast in female, estrogen receptor positive (HCC) from Last 3 Months Results * (ABNORMAL) IMMUNOFIXATION SCREEN, SERUM (05/31/2025 10:57 AM EDT) [facility] MPA Result M protein is present.(A) No M protein is identified . 06/03/2025 1:05 PM EDT [facility] Interpretation (MPA) Atypical restricted bands are present in the IgM and kappa regions. Consistent with IgM kappa monoclonal gammopathy. 06/03/2025 1:05 PM EDT [facility] Staff Review ([facility]) Reviewed by Kenisha Rico MD 06/03/2025 1:05 PM EDT [facility] Blood BLOOD SPECIMEN / Unknown Venipuncture / Unknown 05/31/2025 10:57 AM EDT 05/31/2025 10:58 AM EDT us Sandeep Clark MD LABORATORY Final Result [facility] [address] [address], * (ABNORMAL) PROTEIN ELECTROPHORESIS SERUM (P) (05/31/2025 10:57 AM EDT) [facility] Albumin for SPE 3.86 3.43 - 5.41 g/dL 5 10:[address] [facility] Alpha 1 Globulin 0.33 0.18 - 0.43 g/dL 5 10:[address] [facility] Alpha 2 Globulin 0.72 0.42 - 0.98 g/dL 5 10:[address] [facility] Beta Globulin 1.15 0.61 - 1.17 g/dL 5 10:[address] [facility] Gamma Globulin 0.64 0.53 - 1.51 g/dL 5 10:[address] [facility] Interpretation (Prot Electro) An M protein is identified on protein electrophoresis.(A ) No definitive M protein is identified on protein electrophore sis. 5 10:[address] [facility] Interpretation Comment for Protein Electrophoresis See separate immunofixation report for characterization of monoclonal gammopathy. 5 10:[address] [facility] M-Protein Location Beta Fraction 1 5 10:[address] [facility] M-Protein Concentration 0.38(H) <=0.00 g/dL 5 10:[address] [facility] SPE Staff Review Reviewed by Rita Avery M.D., Ph.D 10:[address] [facility] Blood BLOOD SPECIMEN / Unknown Venipuncture / Unknown 05/31/2025 10:57 AM EDT 05/31/2025 10:58 AM [facility] - 06/02/2025 10:21 AM [facility] Serum electrophoresis test was performed using the Conviva V8 NEXUS capillary electrophoresis method. Results obtained with different assay methods or kits cannot be used interchangeably. us Sandeep Clark MD LABORATORY Final Result [facility] [address] [address], [place] * (ABNORMAL) KAPPA/DIAZ,FREE,SER (05/31/2025 10:57 AM EDT) [place] Free, Serum 54.4(H) 3.3 - 19.4 mg/L 06/01/2025 2:53 PM EDT [facility] Comment: Rarely, increased serum free light chains levels may not be detected or accurately quantified due to prozone phenomenon or in high viscosity samples using this immunoturbidimetric assay. Correlation with other laboratory results and clinical findings is recommended. The [place] Free Light Chain was performed using the Binding Site Optilite immunoturbidimetric method. Result obtained with different assay methods or kits cannot be used interchangeably. Lambda Free, Serum 25.2 5.7 - 26.3 mg/L 06/01/2025 2:53 PM EDT [facility] Comment: Rarely, increased serum free light chains levels may not be detected or accurately quantified due to prozone phenomenon or in high viscosity samples using this immunoturbidimetric assay. Correlation with other laboratory results and clinical findings is recommended. The [place] Free Light Chain was performed using the Binding Site Optilite immunoturbidimetric method. Result obtained with different assay methods or kits cannot be used interchangeably. K/L Ratio, Serum 2.16(H) 0.26 - 1.65 06/01/2025 2:53 PM EDT [facility] Blood BLOOD SPECIMEN / Unknown Venipuncture / Unknown 05/31/2025 10:57 AM EDT 05/31/2025 10:58 AM EDT us Sandeep Clark MD LABORATORY Final Result [facility] [address] [place] [address], * (ABNORMAL) LACTATE DEHYDROGENASE (05/31/2025 10:57 AM EDT) LD 254(H) 135 - 214 U/L 05/31/2025 6:32 PM EDT [facility] Blood BLOOD SPECIMEN / Unknown Venipuncture / Unknown 05/31/2025 10:57 AM EDT 05/31/2025 10:58 AM EDT us Sandeep Clark MD LABORATORY Final Result [facility] [address] [address], [place] * VITAMIN B12 (05/31/2025 10:57 AM EDT) Vitamin B12 513 232 - 1,245 pg/mL 05/31/2025 6:24 PM EDT [facility] Blood BLOOD SPECIMEN / Unknown Venipuncture / Unknown 05/31/2025 10:57 AM EDT 05/31/2025 10:58 AM EDT us Sandeep Clark MD LABORATORY Final Result Performing Organization Address City/[facility]/ZIP Co de Phone Number [facility] [address] [place] [id number], [place] * (ABNORMAL) URIC ACID (05/31/2025 10:57 AM EDT) Uric Acid 7.2(H) 2.5 - 6.6 mg/dL 05/31/2025 6:32 PM EDT [facility] Blood BLOOD SPECIMEN / Unknown Venipuncture / Unknown 05/31/2025 10:57 AM EDT 05/31/2025 10:58 AM EDT us Sandeep Clark MD LABORATORY Final Result [facility] [address] [address], [place] * PROTEIN, TOTAL (05/31/2025 10:57 AM EDT) Protein, Total 6.7 6.3 - 8.0 g/dL 05/31/2025 6:14 PM EDT [facility] Blood BLOOD SPECIMEN / Unknown Venipuncture / Unknown 05/31/2025 10:57 AM EDT 05/31/2025 10:58 AM EDT us Sandeep Clark MD LABORATORY Final Result Performing Organization Address City/[facility]/ZIP Co de Phone Number [facility] [address] [place] [address], [place] * PHOSPHORUS INORGANIC (05/31/2025 10:57 AM EDT) Phosphorus 3.5 2.7 - 4.8 mg/dL 05/31/2025 6:32 PM EDT [facility] Blood BLOOD SPECIMEN / Unknown Venipuncture / Unknown 05/31/2025 10:57 AM EDT 05/31/2025 10:58 AM EDT us Sandeep Clark MD LABORATORY Final Result Performing Organization Address [facility] de Phone Number [facility] [address] [place] [address], [place] * IRON AND TIBC (05/31/2025 10:57 AM EDT) Iron 82 41 - 186 ug/dL 05/31/2025 6:18 PM EDT [facility] TIBC 269 232 - 386 ug/dL 05/31/2025 6:18 PM EDT [facility] Transferrin Saturation 30.5 15.0 - 57.0 % 05/31/2025 6:18 PM EDT [facility] Blood BLOOD SPECIMEN / Unknown Venipuncture / Unknown 05/31/2025 10:57 AM EDT 05/31/2025 10:58 AM EDT us Sandeep Clark MD LABORATORY Final Result Performing Organization Address City/[facility] Co de Phone Number [facility] [address] [place] [id number], [place] * (ABNORMAL) IMMUNOGLOBULINS,IGG,IGA,IGM (05/31/2025 10:57 AM EDT) IgG 805 700 - 1,600 mg/dL 05/31/2025 5:39 PM EDT [facility] IgA 259 70 - 400 mg/dL 05/31/2025 5:39 PM EDT [facility] IgM 421(H) 40 - 230 mg/dL 05/31/2025 5:39 PM EDT [facility] Blood BLOOD SPECIMEN / Unknown Venipuncture / Unknown 05/31/2025 10:57 AM EDT 05/31/2025 10:58 AM EDT Sandeep Clark MD LABORATORY Final Result Performing Organization Address [facility] Co de Phone Number [facility] [address] [place] [address], [place] * FOLATE, SERUM (05/31/2025 10:57 AM EDT) Pathologist [facility] Folate >20.0 >4.7 ng/mL 05/31/2025 6:24 PM EDT [facility] Comment: A result of > 20 ng/mL is not necessarily indicative of a pathologic or treatable condition: it reflects a limitation of the test methodology. Assay reference range: 4.8 to 24.2 ng/mL. Suitable for detection of folate deficiency. Reference: Folate III (Folate III) [package insert V 1.0 Faroese]. [facility], [place], [place]: July 2015. Blood BLOOD SPECIMEN / Unknown Venipuncture / Unknown 05/31/2025 10:57 AM EDT 05/31/2025 10:58 AM EDT Sandeep Clark MD LABORATORY Final Result Performing Organization Address [facility]/ZIP Co de Phone Number [facility] [address] [place] [address], [place] * (ABNORMAL) FERRITIN (05/31/2025 10:57 AM EDT) Ferritin 221.0(H) 14.7 - 205.1 ng/mL 05/31/2025 6:17 PM EDT [facility] Blood BLOOD SPECIMEN / Unknown Venipuncture / Unknown 05/31/2025 10:57 AM EDT 05/31/2025 10:58 AM EDT us Sandeep Clark MD LABORATORY Final Result [facility] [address] [address], [place] * (ABNORMAL) COMPREHENSIVE METABOLIC PANEL (05/31/2025 10:57 AM EDT) Pathologist [facility] Protein, Total 7.1 6.3 - 8.0 g/dL 05/31/2025 6:32 PM EDT [facility] Albumin 3.9 3.9 - 4.9 g/dL 05/31/2025 6:32 PM EDT [facility] Calcium, Total 9.7 8.5 - 10.2 mg/dL 05/31/2025 6:32 PM EDT [facility] Bilirubin, Total 0.4 0.2 - 1.3 mg/dL 05/31/2025 6:32 PM EDT [facility] Alkaline Phosphatase 105 34 - 123 U/L 05/31/2025 6:32 PM EDT [facility] AST 19 13 - 35 U/L 05/31/2025 6:32 PM EDT [facility] ALT 11 7 - 38 U/L 05/31/2025 6:32 PM EDT [facility] Glucose 283(H) 74 - 99 mg/dL 05/31/2025 6:32 PM EDT [facility] Comment: The [place] Diabetes Association (ADA) provides guidance for cutoff [...] Standards of Medical Care in Diabetes 2016, [place] [employer] Association. Diabetes Care. 2016.39(Suppl 1). BUN 41(H) 7 - 21 mg/dL 05/31/2025 6:32 PM EDT [facility] Creatinine 1.88(H) 0.58 - 0.96 mg/dL 05/31/2025 6:32 PM EDT [facility] Sodium 140 136 - 144 mmol/L 05/31/2025 6:32 PM EDT [facility] Potassium 4.4 3.7 - 5.1 mmol/L 05/31/2025 6:32 PM EDT [facility] Chloride 103 98 - 107 mmol/L 05/31/2025 6:32 PM EDT [facility] CO2 23 22 - 30 mmol/L 05/31/2025 6:32 PM EDT [facility] Anion Gap 14 8 - 15 mmol/L 05/31/2025 6:32 PM EDT [facility] Estimated Glomerular Filtration Rate 27(L) >=60 mL/min/1. 73m 05/31/2025 6:32 PM EDT [facility] Comment:Estimated Glomerular Filtration Rate (eGFR) [...] BLOOD SPECIMEN / Unknown Venipuncture / Unknown 05/31/2025 10:57 AM EDT 05/31/2025 10:58 AM EDT us Sandeep Clark MD LABORATORY Final Result [facility] [address] [address], * CALCIUM, IONIZED (05/31/2025 10:57 AM EDT) Normalized Calcium 1.24 1.08 - 1.30 mmol/L 05/31/2025 2:24 PM EDT [facility] Calcium Ionized, Whole Blood 1.28 1.08 - 1.30 mmol/L 05/31/2025 2:24 PM EDT [facility] Blood BLOOD SPECIMEN / Unknown Venipuncture / Unknown 05/31/2025 10:57 AM EDT 05/31/2025 10:58 AM EDT us Sandeep Clark MD LABORATORY Final Result [facility] [address] [facility] [place] [id number], * COMPLETE BLOOD COUNT AND DIFFERENTIAL (05/31/2025 10:57 AM EDT) Pathologist [facility] WBC 8.38 3.70 - 11.00 k/uL 05/31/2025 11:01 AM EDT [facility] RBC 4.24 3.90 - 5.20 m/uL 05/31/2025 11:01 AM EDT [facility] Hemoglobin 13.1 11.5 - 15.5 g/dL 05/31/2025 11:01 AM EDT [facility] Hematocrit 40.6 36.0 - 46.0 % 05/31/2025 11:01 AM EDT [facility] MCV 95.8 80.0 - 100.0 fL 05/31/2025 11:01 AM EDT [facility] MCH 30.9 26.0 - 34.0 pg 05/31/2025 11:01 AM EDT [facility] MCHC 32.3 30.5 - 36.0 g/dL 05/31/2025 11:01 AM EDT [facility] RDW-CV 13.8 11.5 - 15.0 % 05/31/2025 11:01 AM EDT [facility] Platelet Count 232 150 - 400 k/uL 05/31/2025 11:01 AM [facility] MPV 10.6 9.0 - 12.7 fL 05/31/2025 11:01 AM [facility] Neutrophils % 76.0 % 05/[facility] Abs Neut 6.37 1.45 - 7.50 k/uL 05/31/2025 11:01 AM [facility] Lymphocytes % 13.6 % 05/31/2025 [facility] Abs Lymph 1.14 1.00 - 4.00 k/uL 05/31/2025 11:01 AM [facility] Monocytes % 8.1 % 05/31/2025 11:01 AM [facility] Abs [place] 0.68 <0.87 k/uL 05/31/2025 11:01 AM [facility] Eosinophils % 1.4 % 05/31/2025 11:01 AM [facility] Abs Eosin 0.12 <0.46 k/uL 05/31/2025 11:01 AM [facility] Basophils % 0.5 % 05/31/2025 11:01 AM [facility] Abs Baso 0.04 <0.11 k/uL 05/31/2025 11:01 AM [facility] Immature Granulocytes % 0.4 % 05/31/2025 11:01 AM [facility] Abs Immature Gran 0.03 <0.10 k/uL 025 11:01 AM [facility] NRBC 0.0 /100 WBC 05/31/2025 11:01 AM [facility] Absolute nRBC <0.01 <0.01 k/uL 05/31/2025 11:01 AM [facility] Diff Type Auto 05/31/2025 11:01 AM [facility] Blood BLOOD SPECIMEN / Unknown Venipuncture / Unknown 05/31/2025 10:57 AM EDT 05/31/2025 10:58 AM EDT us Sandeep Clark MD LABORATORY Final Result [facility] [address] [place] [address] * CA 15-3 BLD (05/31/2025 10:57 AM EDT) Breast CA 15-3 12.6 <26.0 U/mL 05/31/2025 6:18 PM EDT [facility] Comment:The CA 15-3 test met hodology used is the Electrochemiluminescence Immunoassay by [employer]. Results obtained with different methods or kits cannot be used interchangeably. Blood BLOOD SPECIMEN / Unknown Venipuncture / Unknown 05/31/2025 10:57 AM EDT 05/31/2025 10:58 AM EDT us Sandeep Clark MD LABORATORY Final Result Performing Organization Address [facility] Co de Phone Number [facility] [address] [address], * (ABNORMAL) B2 MICROGLOBULIN (05/31/2025 10:57 AM EDT) B2 Microglobulin 4.9(H) <3.1 mg/L 05/31/20 6:18 PM EDT [facility] Comment:Beta-2 Microglobulin test is performed using the [employer] immunoturbidimetric method. Results obtained with different methods or kits cannot be used interchangeably. Blood BLOOD SPECIMEN / Unknown Venipuncture / Unknown 05/31/2025 10:57 AM EDT 05/31/2025 10:58 AM EDT us Sandeep Clakr MD LABORATORY Final Result [facility] [address] [place] [address] [address] [place] [address], [place] from Last 3 Months Insurance MEDICARE [facility] MEDICARE [employer]RO[employer] Care Teams Air [employer] R[employer] Relationship Specialty Start Date End Date Xavier Mcnamara MD PCP - General Family Medicine 05/30/18
--- OUTSIDE RECORDS SUMMARY | 2025-07-06 09:50 | XMS_ITS | CCD ---
Author Organization [facility] ion [facility] Care Team Providers Care Death Surveys Coder Name Role Phone MD Eduardo Sharpe Primary Care Provider [phone] MD Radha Echavarriaop Admit Provider MD Radha Echavarriaop Attending Provider MD Brayden Hernandez Other Provider MD Brayden Hernandez Attending Provider Eduardo Sharpe MD Primary Care Provider [phone] Brayden Hernandez Unavailable EDUARDO SHARPE Primary Care Unavailable EDUARDO SHARPE Referring Unavailable GANESH HALE Admitting Unavailable GANESH HALE Attending Unavailable Unavailable Primary Care Provider Unavailcharles e PROVIDER, UNKNOWN Attending Unavailable PROVIDER, UNKNOWN Admitting Unavailable Eduardo Sharpe MD Primary Care Provider [phone] MIKALA HIGGINS Admitting Unavailable MIKALA HIGGINS Attending [...] DR EDUARDO SHARPE Attending Unavailable DELL, DR LCARK Consulting Unavailable DELL, DR CLARK Admitting Unavailable [...] Unavailable BALBIR, DR KATLYN Aragon Consulting Unavailable LEONAY, DR CLARK Primary Care Unavailable ABHYANKAR, SANDEEP [...] Unavailable DELL, DR CLARK Primary Care Unavailable SHAIKH Barbara AGUIAR Attending Unavailable SHAIKH Barbara AGUIAR Admitting Unavailable DELL, DR CLARK Primary Care Unavailable LEROY, DR BORRERO Consulting Unavailable MORAIMUNDO, DR BORRERO Admitting Unavailable LEROY, DR BORRERO Attending Unavailable Eduardo Sharpe MD Primary Care Provider [phone] Bala Hartman Unavailable MARK ISABEL Attending Unavailable TRINA HAIDER Referring Unavailable Unavailable Primary Care Provider UnavailEduardo Yin MD Primary Care Provider [phone] MD Eduardo Sharpe Primary Care Provider [phone] DO Amanda Contreras Attending Provider GISSELL HARPER Attending Unavailable RAHEEL WRIGHT Attending Unavailable GISSELL HARPER Attending Unavailable Eduardo Sharpe MD Primary Care Provider [phone] Vince Rojo MD Attending Provider NO FAMILY, PHYSICIAN Primary Care Provider Unava ilable Amanda Contreras Admitting Unavailable Amanda Contreras Attending Unavailable Eduardo Sharpe Primary Care Unavailable NO FAMILY, PHYSICIAN Primary Care Unavailable Vince Rojo Admitting Unavailable Vnice Rojo Attending Unavailable ABCHRISTELLEANKAR, SANDEEP Referring Unavailable ABLEXAR, SANDEEP Attending Unavailable EDUARDO SHARPE Primary Care Unavailable ABLEXAR, SANDEEP Referring Unavailable HOY, EDUARDO M Primary Care Unavailable ABHYANKAR, SANDEEP Attending Unavailable DELL, EDUARDO M Primary Care Unavailable HOY, EDUARDO M Primary Care Unavailable SANDEEP LENZ Attending Unavailable SANDEEP LENZ Referring Unavailable HOY, EDUARDO M Primary Care Unavailable ABSANDEEP SHIELDS Referring Unavailable SANDEEP LENZ Attending Unavailable DELL, EDUARDO M Primary Care Unavailable HOY, EDUARDO M Primary Care Unavailable Allergies Allergy Classification Reported Allergen(s) Allergy Type Date of Onset Reaction(s) Facility (2 sources) Agjnckb-AQR-BiR Reductase Inhibitor; Translations: [Jvronzg-OII-YvA Reductase Inhibitor] Propensity to adverse reactions 0 [facility] (5 sources) HMG-CoA reductase inhibitor; Translations: [[id number]-RWZ REDUCTASE INHIBITORS] Drug Allergy 8 Unknown [facility] (1 source) black walnut pollen extract Drug Allergy 8 [facility] (20 sources) HMG-CoA reductase inhibitor Drug Allergy 8 Unknown [facility] (2 sources) Simvastatin Drug Allergy [facility] Repository Medications Current Medications Medication Drug Class(es) Dates Sig (Normalized) Sig (Original) Accu-Chek Fifi Plus - (2 sources) Accu-Chek Fifi Plus - TEST BLOOD SUGAR ONCE DAILY DX: E11.65 In Vitro for 90 Days Active allopurinol 100 mg oral tablet (1 source) Xanthine Oxidase Inhibitor Start: 03-25-2025 take 1 tablet by mouth once daily Allopurinol 100 mg tablet Active 100 MG PO Daily March 25, 2025 12:00am Complies with drug therapy amLODIPine 5 mg oral tablet (20 sources) Dihydropyridine Calcium Channel Isabel Start: 01-20-2024 take 1 tablet by mouth twice daily Amlodipine 5 mg tablet Active 5 MG PO Twice daily January 20, 2024 12:00am Complies with drug therapy Start: 04-30-2023 take 1 tablet by mena th in the morning amLODIPine (Norvasc) 5 MG tablet Take 1 tablet by mouth in the morning and 1 tablet before bedtime. 0 04/30/2023 Active Start: 12-05-2021 take 2 tablets by mo uth twice daily amLODIPine (NORVASC) 2.5 mg tablet Take 5 mg by mouth twice daily. 12/05/2021 Active Start: 11-11-2021 End: 01-20-2024 take 1 tablet by mouth once daily Amlodipine 2.5 mg tablet Discontinued 2.5 MG PO Daily November 11, 2021 [...] MG PO Daily January 20, 2024 12:00am Complies with drug therapy Start: 09-10-2020 End: 04-17-2024 take 1 tablet by mouth once daily Aspirin 81 mg Tablet Discontinued 81 MG PO Daily September 10, 2020 1:00am November 09, 2021 7:27pm take 1 tablet by mena th once daily aspirin 81 MG chewable tablet Chew 1 tablet every day by oral route. 0 Active Comment on above: Take 81 mg by mouth once daily. calcium carbonate 625 mg / cholecalciferol 125 unt oral tablet (20 sources) Vitamin D Start: take 1 tablet [...] (20 sources) alpha-Adrenergic Isabel, beta-Adrenergic Isabel Start: take 1 tablet by mouth twice daily Carvedilol 25 mg tablet Active 25 MG PO Twice daily November 09, 2021 1:00am Complies with drug therapy Start: 09-10-2020 End: 11-09-2021 take 1 tablet by mouth twice daily Carvedilol (Coreg) 12.5 mg Tablet Discontinued 12.5 MG PO Twice daily September 15, 2020 5:27pm November 09, 2021 8:14pm Start: 09-10-2020 End: 09-10-2020 Carvedilol 25 mg tablet Disc ontinued September 10, 2020 1:00am September 10, 2020 2:19am Start: 09-10-2020 End: 09-10-2020 Carvedilol 25 mg tablet Disc ontinued TABLET September 10, 2020 1:00am September 10, [...] Takes 1 1/2 tablet 2x a day cefdinir 300 mg oral capsule (1 source) Cephalosporin Antibacterial Start: 5 take 1 capsule by mouth once Cefdinir 300 mg capsule Active 300 MG PO Once March 25, 2025 12:00am Complies with drug therapy doxazosin 2 mg oral tablet (20 sources) alpha-Adrenergic Isabel Start: take 1 tablet by mouth once daily in the morning Doxazosin 2 mg tablet Active 2 MG PO Every morning July 16, 2024 12:00am Complies with drug therapy Start: 04-01-2023 End: 03-31-2024 take 1 tablet by mouth at bedtime Doxazosin 4 mg table t Active 4 MG PO Bedtime January 20, 2024 12:00am Complies with drug therapy Comment on above: Take 4 mg by mouth d aily at bedtime. ezetimibe 10 mg oral tablet (20 sources) Dietary Cholesterol Absorption Inhibitor Start: 09-10-2020 End: 09-15-2020 take 1 tablet by mouth once daily Ezetimibe 10 mg Tablet Active 10 MG PO Daily September 15, 2020 5:27pm Complies with drug therapy Start: 09-10-2020 End: 09-10-2020 Ezetimibe Discontinued MG TA BLET September 10, 2020 1:00am September 10, 2020 2:19am Comment on above: Take 10 mg by mouth once daily. ferrous sulfate 325 mg oral tablet (20 sources) Start: 01-20-2024 take 1 tablet by mouth twice daily Ferrous Sulfate 325 mg (65 mg iron) tablet Active 325 MG PO Twice daily January 20, 2024 12:00am Complies with drug therapy take 1 tablet by mouth once elaine [...] oral tablet (20 sources) Loop Diuretic Start: 12-31-2024 take 2 tablets by mouth once daily Furosemide 20 mg tablet Active 40 MG PO Daily December 31, 2024 3:58pm Complies with drug therapy Start: 07-16-2024 End: 03-25-2025 Furosemide (Lasix) 20 mg tab let Discontinued 20 MG PO Every 48 hours July 16, 2024 12:00am March 25, 2025 10:17am Start: 01-20-2024 End: 12-31-2024 Furosemide 20 mg tablet Disc ontinued 40 MG PO Every 48 hours January 20, 2024 3:26pm December 31, 2024 3:58pm Start: 01-20-2024 Furosemide Act bello 40 MG PO Every 48 hours January 20, 2024 3:26pm Start: 09-22-2020 End: 01-20-2024 take 2 tablets by mouth once daily Furosemide 20 mg tablet Discontinued 40 MG PO Daily 60 September 22, 2020 1:00am January 20, 2024 3:30pm See your primary care provider or cardiology for refills Start: 09-22-2020 End: 01-20-2024 take 40 mg by mouth once daily Furosemide Discontinued 40 MG PO Daily 60 September 22, 2020 1:00am January 20, 2024 3:30pm See your primary care provider or cardiology for refills Start: 09-10-2020 End: 09-10-2020 Furosemide 40 mg tablet Disc ontinued September 10, 2020 1:00am September 10, 2020 2:21am Start: 09-10-2020 End: 09-10-2020 Furosemide 40 mg tablet Disc ontinued TABLET September 10, 2020 1:00am September 10, 2020 2:21am Comment on above: Take 40 mg by mouth once daily. glimepiride 2 mg oral tablet (4 sources) Sulfonylurea Start: 5 take 1 tablet by mouth once daily in the morning Glimepiride 2 mg tablet Active 2 MG PO Every morning December 31, 2024 12:00am Complies with drug therapy Start: 09-28-2024 take 1 tablet by mena th once daily at breakfast glimepiride (AMARYL) 2 mg tablet TAKE 1 TABLET BY MOUTH EVERY DAY WITH BREAKFAST OR THE FIRST MAIN MEAL OF THE DAY 09/28/2024 Active ketorolac tromethamine 5 mg/ml ophthalmic solution (1 source) Nonsteroidal Anti-inflammatory Drug, Cyclooxygenase Inhibitor Start: 10-31-2023 End: 11-30-2023 take 1 drop(s) into the eye(s) in the morning ketorolac (Acular) 0.5 % ophthalmic solution Indications: Age-related nuclear cataract of left eye Administer 1 drop into affected eye(s) in the morning and 1 drop before bedtime. 5 mL 1 10/31/2023 11/30/2023 Active Lactobacillus acidophilus (3 sources) Lactobacillus acidophilus (PROBIOTIC ORAL) Take by mouth. Active Lactobacillus Combination No.9 (Adult 50 Plus Probiotic) 4 billion cell capsule (2 sources) Start: 12-31-2024 take 4 capsules by mouth once daily Lactobacillus Combination No.9 (Adult 50 Plus Probiotic) 4 billion cell capsule Active 4000 MMU CELLS PO Daily December 31, 2024 12:00am administer with a meal Complies with drug therapy Start: 12-31-2024 take 4 capsules by m outh once daily Lactobacillus Combination No.9 (Adult 50 Plus Probiotic) 4 billion cell capsule Active 4000 MMU CELLS PO Daily December 31, 2024 12:00am administer with a meal latanoprost 0.05 mg/ml ophthalmic solution (1 source) Prostaglandin Analog latanoprost (Xalatan) 0.005 % ophthalmic solution Ophthalmic for 30 Days 0 Active Multivitamin preparation (5 sources) Start: 0 take 1 tablet by mouth once daily Multivitamin Active 1 TAB PO Daily September 10, 2020 1:59am Start: 09-10-2020 End: 01-20-2024 take 1 tablet by mouth once daily Multivitamin Discontinued 1 TAB PO Daily September 10, 2020 1:00am Nadine 29th, 2024 3:29pm ofloxacin 3 mg/ml ophthalmic solution [...] take 1 capsule by mouth once daily Omeprazole 40 mg Capsule,Delayed Release(Dr/Ec) Active 40 MG PO Daily September 15, 2020 5:27pm Complies with drug therapy Comment on above: Take 40 mg by mouth once daily. potassium chloride 10 meq extended release oral tablet (20 sources) Start: 09-22-2020 take 1 tablet by mouth once daily Potassium Chloride 10 mEq tablet extended release Active 10 MEQ PO Daily September 22, 2020 1:00am See your primary care provider or cardiology for refills Complies with drug therapy Comment on above: Potassium Chloride A ctive [...] hours 0 12/07/2022 Active Start: 11-09-2021 take 1 capsule by [facility] twice daily Propafenone 325 mg capsule,extended release 12 hr Active 325 MG PO Twice daily November 09, 2021 1:00am Complies with drug therapy Start: 04-12-2021 take 1 capsule by [facility] every twelve hours, then take 1 capsule by mouth every twelve hours propafenone SR (RYTHMOL SR) 325 mg 12 hr capsule Take 325 mg by mouth q 12 HR. 04/12/2021 Active Start: 09-19-2020 End: 09-19-2020 take 1 capsule by mouth every twelve hours Propafenone 225 mg capsule,extended release 12 hr Discontinued MG PO September 19, 2020 1:00am September 19, 2020 1:23pm Start: 09-10-2020 End: 09-10-2020 take 1 capsule by mouth every twelve hours Propafenone 225 mg capsule,extended release 12 hr Discontinued MG PO September 10, 2020 1:00am September 10, 2020 2:21am Start: 09-10-2020 End: 11-09-2021 take 1 tablet by mouth twice daily Propafenone 225 mg Tablet Discontinued 225 MG PO Twice daily 60 September 15, 2020 5:27pm November 09, 2021 8:15pm Comment on above: Take 325 mg by mouth q 12 HR. sacubitril 24 mg / valsartan 26 mg oral tablet (2 sources) Angiotensin 2 Receptor Isabel Start: 12-31-2024 take 1 tablet by mouth twice daily Sacubitril-Valsart an (Entresto) 24-26 mg tablet Active 1 TAB PO Twice daily December 31, 2024 12:00am Complies with drug therapy Completed/Discontinued Medications Medication Drug Class(es) Dates Sig (Normalized) Sig (Original) acetaminophen 325 mg oral capsule (7 sources) Start: 09-10-2020 End: 11-09-2021 take 2 capsules by mouth every four hours as needed for pain Acetaminophen (Tylenol) 325 mg Capsule Discontinued 650 MG PO Q4H as needed for Fever Or Pain September 10, 2020 1:00am November 09, 2021 7:27pm [id number] actuat albuterol 0.09 mg/actuat metered dose inhaler (12 sources) beta2-Adrenergic Agonist Start: 09-15-2020 End: 11-09-2021 Albuterol Sulfate (Ventolin Hfa) 90 mcg/actuation HFA aerosol inhaler Discontinued 2 INH INHALATION EVERY 4-6 HOURS as needed for shortness of breath or wheezing 8.5 September 15, 2020 1:00am November 09, [...] 1:00am September 15, 2020 12:43pm 2 puffs Albuterol 90 mcg/actuation Aerosol (2 sources) Start: 09-10-2020 End: 09-15-2020 take 90 ug by inhalation four times daily as needed Albuterol 90 mcg/actuation Aerosol Discontinued 90 MCG INHALATION Four times daily as needed for Shortness Of Breath September 10, 2020 1:00am September 15, 2020 12:43pm 2 puffs alogliptin 25 mg oral tablet (7 sources) Start: 09-10-2020 End: 09-10-2020 take 1 tablet by mouth once daily Alogliptin 25 mg Tablet Discontinued 25 MG PO Daily September 10, 2020 1:00am September 10, 2020 2:18am aluminum hydroxide 40 mg/ml / magnesium hydroxide 40 mg/ml / simethicone 4 mg/ml oral suspension (7 sources) Start: 09-10-2020 End: 09-19-2020 take 1 mL by mouth every four hours as needed Alum-Mag Hydroxide-Simeth 200-200-20 mg/5 mL Suspension Discontinued 30 ML PO Q4H as needed for Upset stomach September 10, 2020 1:00am September 19, 2020 1:20pm amoxicillin 875 mg / clavulanate 125 mg oral tablet (14 sources) Penicillin-class Antibacterial Start: 09-10-2020 End: 09-22-2020 take 1 tablet by mouth every twelve hours Amoxicillin-Pot Clavulanate (Augmentin) 875-125 mg Tablet Discontinued 1 TAB PO Q12H 10 September 15, 2020 12:42pm September 22, 2020 1:11pm Stop date 09/20/20 anastrozole 1 mg oral tablet (20 sources) Aromatase Inhibitor Start: 09-10-2020 End: 01-20-2024 take 1 tablet by mouth once daily Anastrozole 1 mg Tablet Discontinued 1 MG PO Daily September 15, [...] 09, 2021 1:00am January 20, 2024 3:28pm Start: 11-09-2021 End: 01-20-2024 take 0.01 drop(s) into the eye(s) once daily in the evening Bimatoprost (Lumigan) 0.01 % Drops Discontinued 1 DROPS EYE-BOTH Every evening November 09, 2021 1:00am January 20, 2024 3:28pm End: 10-19-2024 bimatoprost (LUMIGAN) 0.01 % drop ophthalmic drops 1 Drop as directed. 10/19/2024 Discontinued (Discontinued by Patient) Comment on above: 1 Drop as directed. bisacodyl 10 mg rectal suppository (7 sources) Stimulant Laxative Start: End: Bisacodyl (Dulcolax (Bisacodyl)) 10 mg Suppository Discontinued 10 MG FL Daily as needed for Constipation September 10, 2020 1:00am September 19, 2020 1:20pm cetirizine hydrochloride 10 mg oral tablet (7 sources) Histamine-1 Receptor Antagonist Start: End: take 1 tablet by mouth once daily Cetirizine 10 mg Tablet Discontinued 10 MG PO Daily September 10, 2020 1:00am September 22, 2020 1:11pm cholecalciferol 0.05 mg oral capsule (3 sources) Vitamin D Start: End: take 1 capsule by mouth once daily Cholecalciferol (Vitamin D3) 50 mcg (2,000 unit) capsule Discontinued 50 MCG PO Daily July 16, 2024 12:00am December 31, 2024 3:45pm dexamethasone 6 mg oral tablet (7 sources) Corticosteroid Start: End: take 1 tablet by mouth once daily Dexamethasone 6 mg Tablet Discontinued 6 MG PO Daily September 15, 2020 1:00am September 22, 2020 1:11pm end 09/20 dextromethorphan hydrobromide 1 mg/ml / guaiFENesin 20 mg/ml oral solution (7 sources) Uncompetitive E-fexoms-J-aspartate Receptor Antagonist, Sigma-1 Agonist Start: End: take 1 mL by mouth every six hours as needed for cough Dextromethorphan-Guai fenesin (Robitussin Cough-Chest Shadi Dm) 5-100 mg/5 mL Liquid Discontinued 10 ML PO Every 6 hours as needed for Cough September 10, 2020 1:00am September 15, 2020 12:43pm dilTIAZem hydrochloride 60 mg oral tablet (7 sources) Calcium Channel Isabel Start: End: Diltiazem Hcl 60 mg tablet Discontinued September 10, 2020 1:00am September 10, 2020 2:22am Start: 09-10-2020 End: 09-10-2020 Diltiazem Hcl 60 mg tablet D iscontinued TABLET September 10, 2020 1:00am September 10, 2020 2:22am Start: 09-10-2020 End: 09-10-2020 Diltiazem Hcl Discontinued T ABLET September 10, 2020 1:00am September 10, 2020 2:22am ergocalciferol 1.25 mg oral capsule (14 sources) Provitamin D2 Compound Start: 09-10-2020 End: 01-20-2024 take 1 capsule by mouth every week Ergocalciferol (Vitamin D2) 1,250 mcg (50,000 unit) Capsule Discontinued 1250 MCG PO every week 8 September 15, 2020 5:27pm January 20, 2024 3:29pm Takes every Saturday flecainide acetate 100 mg oral tablet (7 sources) Antiarrhythmic Start: 09-10-2020 End: 09-15-2020 take 1 tablet by mouth every twelve hours Flecainide 100 mg Tablet Discontinued 100 MG PO Q12H September 10, 2020 1:00am September 15, 2020 12:43pm 120 actuat fluticasone propionate 0.044 mg/actuat metered dose inhaler (14 sources) Corticosteroid Start: 09-10-2020 End: 11-09-2021 take 1 puff(s) by inhalation twice daily Fluticasone Propionate 44 mcg/actuation Hfa Aerosol Inhaler Discontinued 2 PUFF INHALATION Twice daily 10.6 September 15, 2020 5:27pm November 09, 2021 7:27pm hydrALAZINE hydrochloride 100 mg oral tablet (7 sources) Arteriolar Vasodilator Start: 09-10-2020 End: 09-10-2020 Hydralazine 100 mg tablet Discontinued September 10, 2020 1:00am September 10, 2020 2:21am Start: 09-10-2020 End: 09-10-2020 Hydralazine 100 mg tablet Di scontinued TABLET September 10, 2020 1:00am September 10, 2020 2:21am Start: 09-10-2020 End: 09-10-2020 Hydralazine Discontinued TAB LET September 10, 2020 1:00am September 10, 2020 2:21am hyoscyamine sulfate 0.125 mg oral tablet (7 sources) Start: 09-10-2020 End: 09-15-2020 take 1 tablet by mouth four times daily Hyoscyamine Sulfate (Levsin) 0.125 mg Tablet Discontinued 0.125 MG PO Four times daily September 10, 2020 1:00am September 15, 2020 12:43pm Insulin Aspart U-100 (Novolog Flexpen U-100 Insulin) 100 unit/mL (3 mL) Insulin Pen (12 sources) Start: 09-10-2020 End: 09-15-2020 Insulin Aspart U-100 (Novolog Flexpen U-100 Insulin) [...] 10, 2020 1:00am September 10, 2020 2:21am Please contact the information source for Protocol details. Start: 09-10-2020 End: 09-15-2020 Insulin Aspart U-100 (Novolo g Flexpen U-100 Insulin) 100 unit/mL (3 mL) Insulin Pen Discontinued 0 UNIT SUBCUT Before meals and at bedtime September 10, 2020 1:00am September 15, 2020 5:21pm Please contact the information source for Protocol details. Start: 09-10-2020 End: 09-10-2020 inject 100 [IU] [...] 10, 2020 1:00am September 15, 2020 5:21pm 3 ml insulin aspart, human 100 unt/ml pen injector (2 sources) Insulin Analog Start: 09-10-2020 End: 09-15-2020 Insulin Aspart U-100 (Novolo g Flexpen U-100 Insulin) 100 unit/mL (3 mL) Insulin Pen Discontinued SUBCUT Before meals and at bedtime Protocol: *If the corrective scale dose has been administered within the past 4 hours, do not use corrective scale again unless approved by prescriber* Condition: Dose/Route: Instructions: Condition: Fingerstick Blood Glucose Dose/Route: Insulin Units Condition: 141-200 Dose/Route: 8 units Condition: 201-250 Dose/Route: 14 units Condition: 251-300 Dose/Route: 20 units Condition: 301-350 Dose/Route: 26 units Condition: 351-400 Dose/Route: 32 units Condition: 400+ Dose/Route: 38 units September 10, 2020 1:00am September 10, 2020 2:21am Please contact the information source for Protocol details. irbesartan (7 sources) Angiotensin 2 Receptor Isabel Start: 09-10-2020 End: 09-10-2020 Irbesartan Discontinued MG TABLET September 10, 2020 2:05am September 10, 2020 2:21am Start: 09-10-2020 End: 09-10-2020 Irbesartan 300 mg tablet Dis continued MG September 10, 2020 1:00am September 10, 2020 2:21am Start: 09-10-2020 End: 09-10-2020 Irbesartan 300 mg tablet Dis continued MG TABLET September 10, 2020 1:00am September 10, 2020 2:21am Start: 09-10-2020 End: 09-10-2020 Irbesartan Discontinued MG T ABLET September 10, 2020 1:00am September 10, 2020 2:21am lactobacillus acidophilus [id number] unt / pectin 10 mg oral capsule (7 sources) Start: 09-10-2020 End: 09-19-2020 take 1 capsule by mouth four times daily Acidophilus-Pectin, [place] (Acidophilus Probiotic) 100 million cell-10 mg Capsule Discontinued 1 CAP PO Four times daily September 10, 2020 1:00am September 19, 2020 1:20pm Stop date 09/10/20 Magnesium Hydroxide (7 sources) Start: 09-10-2020 End: 09-19-2020 take 1 mL by mouth once daily Magnesium Hydroxide (Milk Of Magnesia) 400 mg/5 mL Suspension Discontinued 30 ML PO Daily September 10, 2020 1:27am September 19, 2020 1:20pm Start: 09-10-2020 End: 09-19-2020 take 1 mL by mouth once daily as needed for constipation Magnesium Hydroxide (Milk Of Magnesia) 400 mg/5 mL Suspension Discontinued 30 ML PO Daily as needed for Constipation September 10, 2020 1:00am September 19, 2020 1:20pm Start: 09-10-2020 End: 09-19-2020 take 1 mL by mouth once daily as needed for constipation Magnesium Hydroxide (Milk Of Magnesia) 400 mg/5 mL Suspension Discontinued 30 ML PO Daily as needed for Constipation September 10, 2020 1:00am September 19, 2020 1:20pm Start: 09-10-2020 End: 09-19-2020 take 1 mL by mouth once daily Magnesium Hydroxide (Mil k Of Magnesia) 400 mg/5 mL Suspension Discontinued 30 ML PO Daily September 10, 2020 1:00am September 19, 2020 1:20pm metFORMIN hydrochloride 500 mg oral tablet (20 sources) Biguanide Start: 11-11-2021 End: 12-31-2024 take 1 tablet by mouth twice daily Metformin 500 mg tablet Discontinued 500 MG PO Twice daily November 11, 2021 1:57pm December 31, 2024 3:47pm Start: 11-09-2021 End: 11-11-2021 take 1 tablet by mouth three times daily Metformin 500 mg tablet Discontinued 500 MG PO Three times daily November 09, 2021 1:00am November 11, 2021 1:58pm Start: 09-10-2020 End: 11-09-2021 take 1 tablet by mouth twice daily Metformin 500 mg Tablet Discontinued 500 MG PO Twice daily 60 September 15, 2020 5:27pm November 09, 2021 8:14pm metFORMIN HCl 50 0 MG TAKE 2 TABLETS BY MOUTH EACH MORNING, AND 1 TABLET IN THE EVENING Oral for 90 Days Active Comment on above: Take 500 mg by mouth twice daily. Multivitamin capsule (20 sources) End: 10-19-2024 take 1 capsule by mouth once daily Multivitamin capsule Take 1 capsule by mouth once daily. 10/19/2024 Discontinued (Discontinued by Patient) take 1 capsule by mouth once eligio ly Multivitamin capsule Take 1 capsule by mouth once daily. Active take 1 capsule by mouth once eligio ly Multivitamin capsule Take 1 capsule by mouth once daily. 0 Active Comment on above: Take 1 capsule by mo [facility] once daily. Multivitamin Tablet (2 sources) Start: End: take 1 tablet by mouth once daily Multivitamin Tablet Discontinued 1 TAB PO Daily September 10, 2020 1:00am January 20, 2024 3:29pm nitroglycerin 0.4 mg sublingual tablet (7 sources) Nitrate Vasodilator Start: End: Nitroglycerin 0.4 mg Tablet, Sublingual Discontinued 0.4 MG SUBLINGUAL Every 5 minutes x 3 doses as needed for Chest Pain September 10, 2020 1:00am November 09, 2021 7:27pm ondansetron 4 mg oral tablet (7 sources) Serotonin-3 Receptor Antagonist Start: End: take 1 tablet by mouth every six hours as needed for nausea Ondansetron Hcl (Zofran) 4 mg Tablet Discontinued 4 MG PO Q6H as needed for Nausea September 10, 2020 1:00am September 15, 2020 12:43pm pioglitazone 30 mg oral tablet (14 sources) Peroxisome Proliferator Receptor alpha Agonist, Peroxisome Proliferator Receptor gamma Agonist, Thiazolidinedione Start: End: take 1 tablet by mouth once daily Pioglitazone 30 mg Tablet Discontinued 30 MG PO Daily September 10, 2020 1:00am September 15, 2020 12:43pm Start: 09-10-2020 End: 09-10-2020 Pioglitazone Discontinued MG TABLET September 10, 2020 1:00am September 10, 2020 2:21am polyethylene glycol 3350 90306 mg powder for oral solution (7 sources) Osmotic Laxative Start: 09-10-2020 End: 09-19-2020 Polyethylene Glycol 3350 (Miralax) 17 gram Powder In Packet Discontinued 17 GM PO Daily as needed for Constipation September 10, 2020 1:00am September 19, 2020 1:20pm predniSONE 10 mg oral tablet (7 sources) Start: 09-10-2020 End: 09-15-2020 take 1 tablet by mouth three times daily Prednisone 10 mg Tablet Discontinued 10 MG PO Three times daily [...] with dinner. SITagliptin 100 mg oral tablet (20 sources) Dipeptidyl Peptidase 4 Inhibitor Start: 09-10-2020 End: 11-09-2021 take 1 tablet by mouth once daily Sitagliptin Phosphate 100 mg Tablet Discontinued 100 MG PO Daily September 15, 2020 5:27pm November 09, 2021 7:27pm sodium phosphate, dibasic 59.3 mg/ml / sodium phosphate, monobasic 161 mg/ml enema (7 sources) Start: 09-10-2020 End: 09-19-2020 Sodium Phosphates (Fleet Enema) 19-7 gram/118 mL Enema Discontinued 118 ML FL Daily as needed for Constipation September 10, 2020 1:00am September 19, 2020 1:20pm travoprost 0.04 mg/ml ophthalmic solution (2 sources) Prostaglandin Analog Start: 09-10-2020 End: 11-09-2021 take 0.004 drop(s) into the eye(s) once daily in the evening Travoprost (Travatan Z) 0.004 % Drops Discontinued 1 DROPS EYE-BOTH Every evening September 15, 2020 5:29pm November 09, 2021 7:27pm Travoprost (Travatan Z) 0.004 % Drops (12 sources) Start: 09-15-2020 End: 11-09-2021 take 0.004 [...] 5:29pm warfarin sodium 5 mg oral tablet (9 sources) Vitamin K Antagonist Start: 11-09-2021 End: 11-11-2021 take 1 tablet by mouth once daily Warfarin 5 mg tablet Discontinued 5 MG PO Daily November 09, 2021 1:00am November 11, 2021 1:58pm Zinc (14 sources) Start: 09-15-2020 End: 09-19-2020 take 1 tablet by mouth once daily Zinc 50 mg Tablet Discontinued 50 MG PO Daily September 15, 2020 5:27pm September 19, 2020 1:20pm Start: 09-15-2020 End: 09-19-2020 take 50 mg by mouth once daily Zinc Discontinued 50 MG PO Daily September 15, 2020 5:27pm September 19, 2020 1:20pm Start: 09-10-2020 End: 09-15-2020 take 50 mg by mouth once daily Zinc Discontinued 50 MG PO Daily September 10, 2020 1:59am September 15, 2020 5:27pm Start: 09-10-2020 End: 09-15-2020 take 1 tablet by mouth once daily Zinc 50 mg Tablet Discontinued 50 MG PO Daily September 10, 2020 1:00am September 15, 2020 5:27pm Start: 09-10-2020 End: 09-15-2020 take 50 mg by mouth once daily Zinc Discontinued 50 MG PO Daily September 10, 2020 1:00am September 15, 2020 5:27pm Problems Active Problems Problem Classification Problem Date Documented Date Episodic/Chronic Acute and unspecified renal failure (1 source) Acute kidney failure, unspecified; Translations: [ACUTE KIDNEY FAILURE UNSPECIFIED] Onset: 2 Episodic Acute cerebrovascular disease (20 sources) Spontaneous cerebral hemorrhage; 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, unspecified] Onset: 2 Resolved: 2 11-10-2021 Chronic Comment on above: Problem List clean-u p per request of Phys. EHR Cmte Cancer of breast (20 sources) Malignant neoplasm of upper-outer quadrant of female breast; Translations: [Malignant neoplasm of upper-outer quadrant of left female breast] Onset: 8 Chronic Cancer of breast (2 sources) Personal history of malignant neoplasm of breast; Translations: [PERS HX MALIGNANT NEOPLASM BREAST] Onset: 2 Episodic Cardiac dysrhythmias (16 sources) Atrial fibrillation; Translations: [Unspecified atrial fibrillation] Onset: 2 09-13-2020 Chronic Cataract (2 sources) Age-related nuclear cataract of left eye; Translations: [Age-related nuclear cataract, left eye] Onset: 4 10-31-2023 Chronic Chronic kidney disease (20 sources) Chronic kidney disease, stage 2 (mild); Translations: [Chronic kidney disease stage 3] Onset: 2 05-05-2023 Chronic Chronic kidney disease (3 sources) Chronic kidney disease; Translations: [Chronic kidney disease, stage 3 unspecified] Onset: 3 Coagulation and hemorrhagic disorders (1 source) Other primary thrombophilia; Translations: [OTHER PRIMARY THROMBOPHILIA] Onset: 2 Chronic Congestive heart failure; nonhypertensive (12 sources) Acute exacerbation of chronic congestive heart failure; Translations: [Heart failure, unspecified] Onset: 2 09-19-2020 Chronic Comment on above: Problem List clean-u p per request of Phys. EHR Cmte Diabetes mellitus with complications (15 sources) Type 2 diabetes mellitus with diabetic chronic kidney disease; Translations: [Type 2 diabetes mellitus] Onset: 2 01-20-2024 Chronic Diabetes mellitus without complication (10 sources) Diabetes mellitus; Translations: [Type 2 diabetes mellitus without complications] Onset: 2 11-10-2021 Chronic Disorders of lipid metabolism (18 sources) Pure hypercholesterolemia, unspecified; Translations: [Hyperlipidemia, unspecified] Onset: 2 Chronic E Codes: Unspecified (1 source) Nosocomial condition; Translations: [NOSOCOMIAL CONDITION] Onset: 2 Episodic Essential hypertension (13 sources) Hypertensive disorder; Translations: [Essential (primary) hypertension] Onset: 2 11-10-2021 Chronic Fluid and electrolyte disorders (1 source) Hypokalemia; Translations: [HYPOKALEMIA] Onset: 2 Episodic Gastritis and duodenitis (1 source) Gastritis; Translations: [Gastritis, unspecified, without bleeding] 04-03-2024 Episodic Genitourinary symptoms and ill-defined conditions (11 sources) Proteinuria; Translations: [Proteinuria, unspecified] Onset: 5 02-10-2024 Episodic Glaucoma (2 sources) Primary open angle glaucoma; Translations: [Primary open-angle glaucoma, bilateral, mild stage] Onset: 4 10-31-2023 Chronic Gout and other crystal arthropathies (2 sources) Gout; Translations: [Gout, unspecified] 03-25-2025 Chronic Heart valve disorders (4 sources) Nonrheumatic mitral (valve) insufficiency; Translations: [Rheumatic disorders of both mitral and tricuspid valves] Onset: 2 Chronic Hypertension with complications and secondary hypertension (16 sources) Hypertensive heart and chronic kidney disease [...] disorders] Onset: 1 04-20-2021 Chronic Multiple myeloma (1 source) Multiple myeloma; Translations: [Multiple myeloma not having achieved remission] 03-20-2024 Chronic Neoplasms of unspecified nature or uncertain behavior (19 sources) Monoclonal gammopathy of uncertain significance; Translations: [Monoclonal gammopathy] Onset: 4 02-24-2024 Chronic Nutritional deficiencies (2 sources) Moderate protein-calorie malnutrition; Translations: [Vitamin D deficiency, unspecified] Onset: 2 Chronic Other aftercare (1 source) FDC (current) use of oral hypoglycemic drugs; Translations: [HOOF AND SHOE INSPECTOR USE ORAL HYPOGLYCEMIC DX] Onset: 2 Episodic Other aftercare (1 source) Other intermediate teacher (current) drug therapy; Translations: [OTH NURSING HOME CURRENT DRUG THERAPY] Onset: 2 Episodic Other aftercare (1 source) intermediate teacher (current) use of aspirin; Translations: [HOOF AND SHOE INSPECTOR CURRENT USE OF ASPIRIN] Onset: 2 Episodic Other aftercare (1 source) FDC (current) use of anticoagulants; Translations: [NURSING HOME CURRNT USE ANTICOAGULANTS] Onset: 2 Episodic Other aftercare (4 sources) Encounter for therapeutic drug level monitoring; Translations: [ENC THERAPEUTC DRUG LEVL MONITORING] Onset: 2 Episodic Other diseases of kidney and ureters (8 sources) Secondary hyperparathyroidism; Translations: [Secondary hyperparathyroidism of renal origin] 01-20-2024 Chronic Other diseases of kidney and ureters (3 sources) Secondary hyperparathyroidism of renal origin; Translations: [...] Chronic Other nutritional; endocrine; and metabolic disorders (3 sources) Hypercalcemia; Translations: [Hypercalcemia] 02-10-2024 Chronic Other nutritional; endocrine; and metabolic disorders (5 sources) Hyperuricemia; Translations: [Hyperuricemia without signs of inflammatory arthritis and tophaceous disease] 02-10-2024 Episodic Other nutritional; endocrine; and metabolic disorders (2 sources) Hyperuricemia without signs of inflammatory arthritis and tophaceous disease; Translations: [Other abnormal blood chemistry] 07-16-2024 Episodic Other screening for suspected conditions (not mental disorders or infectious disease) (10 sources) Patient encounter status; Translations: [Encounter for screening for osteoporosis] Onset: 2 Episodic Pneumonia (except that caused by tuberculosis or sexually transmitted disease) (10 sources) Pneumonia; Translations: [Pneumonia, unspecified organism] Onset: 2 09-10-2020 Episodic Comment on above: Problem List clean-u p per request of Phys. EHR Cmte Pulmonary heart disease (3 sources) Pulmonary hypertension, unspecified; Translations: [PULMONARY HYPERTENSION UNSPECIFIED] Onset: 2 Chronic Pulmonary heart disease (7 sources) Pulmonary embolism; Translations: [Other pulmonary embolism without acute cor pulmonale] 09-10-2020 Episodic Comment on above: Problem List clean-u p per request of Phys. EHR Cmte Residual codes; unclassified (1 source) Body mass index (BMI) 22.0-22.9, adult; Translations: [BODY MASS INDEX BMI 22.0-22.9 ADULT] Onset: 2 Episodic Residual codes; unclassified (3 sources) Estrogen receptor positive status [ER+]; Translations: [ESTROGEN RECEPTOR POSITIVE STATUS] Onset: 8 Episodic Respiratory failure; insufficiency; arrest (adult) (1 source) Dependence on supplemental oxygen; Translations: [DEPENDENCE ON SUPPLEMENTAL OXYGEN] Onset: 2 Chronic Respiratory failure; insufficiency; arrest (adult) (8 sources) Acute hypoxemic respiratory failure; Translations: [Acute respiratory failure with hypoxia] Onset: 2 09-10-2020 Episodic Comment on above: Problem List clean-u p per request of Phys. EHR Cmte Septicemia (except in labor) (11 sources) Sepsis; Translations: [Sepsis, unspecified organism] Onset: 2 09-10-2020 Episodic Comment on above: Problem List clean-u p per request of Phys. EHR Cmte Unclassified (1 source) PERSONAL HISTORY OF COVID-19; Translations: [PERSONAL HISTORY OF COVID-19] Onset: 2 Unclassified (1 source) CONTACT W/AND (SUSP) EXPOS COVID-19; Translations: [CONTACT W/AND (SUSP) EXPOS COVID-19] Onset: 2 Unclassified (1 source) CHRN KIDNEY DISEASE STG 3 UNSP; Translations: [CHRN KIDNEY DISEASE STG 3 UNSP] Onset: 2 Unclassified (1 source) PRIMARY OSTEOARTHRITS OT SPEC SITE; Translations: [PRIMARY OSTEOARTHRITS OTH SPEC SITE] Onset: 2 Viral infection (7 sources) Disease caused by 2019-nCoV; Translations: [COVID-19] 09-19-2020 Episodic Comment on above: Problem List clean-u p per request of Phys. EHR Cmte Past or Other Problems Problem Classification Problem [...] sources) Repeated falls; Translations: [Repeated falls] Onset: 02-19-2024 Episodic Other diseases of kidney and ureters (1 source) Other disorders of kidney and ureter in diseases classified elsewhere; Translations: [Monoclonal gammopathy of renal significance (MGRS)] Onset: 11-27-2024 Episodic Other gastrointestinal disorders (1 source) Full incontinence of feces; Translations: [FULL INCONTINENCE OF FECES] Onset: 01-16-2022 Episodic Other nervous system disorders (2 sources) Other abnormalities of gait and mobility; Translations: [Other abnormalities of gait and mobility] Onset: 02-19-2024 Episodic Other non-traumatic joint disorders (4 sources) Other instability, left wrist; Translations: [OTHER INSTABILITY LEFT WRIST] Onset: 05-23-2022 Episodic Other non-traumatic joint disorders (2 sources) Pain in left wrist; Translations: [PAIN IN LEFT WRIST] Onset: 05-30-2022 Episodic Syncope (4 sources) Syncope and collapse; Translations: [SYNCOPE AND COLLAPSE] Onset: 01-11-2022 Episodic Results Test Name Value Interpretation Reference Range Facility [facility] 06-14-2025 OVS Visit ([place]) Office ([place]) ----- ANDREW BARROS ([id number]) 1945 F Date Time Provider Department 06/14/25 10:20 AM SANDEEP LENZ During your visit today, we recorded the following information about you: Temperature Pulse Respiration Blood pressure 97.1 degrees 61/minute 16/minute 120/55 Weight Height 71.2 kg 1.602 m Sandeep Lenz MD 06/14/2025 7:57 PM Signed NAME: Andrew Barros CLINIC NO.: [id number] DATE OF SERVICE: June 14, 2025 (Eduardo) Some elements in this clinic note that are critical to medical decision making have been carefully reviewed and included from a prior clinic note dated: November 27, 2024 (Eduardo) Referring Provider: Eduardo Sharpe Additional Clinicians involved in Andrew Barros's care: DIAGNOSIS: History of Breast Cancer CASE SUMMARY/ ASSESSMENT: 79 year old woman with Left breast upper outer quadrant, invasive ductal carcinoma, ER postive, FL positive, 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 CBC remains stable. Calcium remains WNL. Will repeat labs in 3 months and then as long as everything remains stable, will resume either q6m or annual follow-up. SUMMARIZED PLAN OF CARE: Mammograms in 6 months Labs in 6 months RTC 1 week after labs Exam same day AI Assisted Plan: 1. 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 - Continue routine monitoring. 3. Malignant neoplasm of upper-outer quadrant of left breast in female, estrogen receptor positive (HCC) (C50.412) 4. Cancer of breast, intraductal, left (D05.12) 5. 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, estrogen receptor positive (HCC) (C50.612) 6. Personal history of malignant neoplasm of breast (Z85.3) History of left breast cancer, s/p lumpectomy on 06/05/2018 and completed radiation by end of 2017; on Arimidex until November 2023. Tumor markers are normal and recent mammogram was normal. - Continue annual follow-up for a total of 10 years post-treatment. - Next follow-up after next mammogram in November; will include physical exam at that time. - Educated patient on importance of both mammography and clinical breast exams. 7. Breast screening (Z12.39) 8. Encounter for screening mammogram for malignant neoplasm of breast (Z12.31) Last mammogram was on 08/31/2023; next mammogram is due after patient returns from [place] in November. - Next mammogram to be scheduled after patient returns from [place] in November. 9. Stage 3 chronic kidney disease, unspecified whether stage 3a or 3b CKD (HCC) (N18.30) Reviewed nephrology notes; uric acid and LDH are elevated. - Continue routine monitoring. 10. Type 2 diabetes mellitus with diabetic polyneuropathy, unspecified whether intermediate teacher insulin use (HCC) (E11.42) 11. Type 2 diabetes mellitus without complication, without long-term current use of insulin (HCC) (E11.9) Recent blood glucose readings have been elevated, with a high of 283 mg/dL on 02/29/2024; patient reports typical fasting glucose readings under 120 mg/dL. - Advised patient to check blood glucose three times daily for one week and report results to PCP, Dr. Sharpe. - Educated patient on the importance of more frequent glucose monitoring and follow-up with PCP for diabetes management. CASE HISTORY: Reverse Chronological Order 08/31/2024 - Bilateral Screening Mammogram: No significant suspicious finding. Scattered benign-appearing calcifications are present. 07/17/2024 - CBC: 12.3 > 13.0 / 39.9 < 306, eGFR: 26, Creatinine: 1.71 [place]: 61.0, Lambda: 23.4, K/L Ratio: 2.61 IgA: 180, Ig, IgM: 382 M-protein concentration: 0.4 05/26/2024 - EGD: Dr. Amanda Contreras at [facility] [place] A. Polyp, stomach, biopsy: - Hyperplastic polyp B. Stomach, biopsy: - Reactive/chemical gastropathy with hyperplastic changes - H. Pylori immunostain is negative for H. Pylori organisms 04/16/2024 - A. Kidney, Left, Biopsy: - Focal global glomerulosclerosis, mild. See comment. - Tubular atrophy and interstitial fibrosis, mild. - Arteriosclerosis, moderate, and arteriolosclerosis, moderate to severe. (more content not included)... Normal [facility] B2 Microglob SerPl-mCncon Ytig-5-Agmmqlvjuenkr [Mass/Vol] 4.9 ug/mL High <3.1 [facility] Comment on above: Order Comment: Speci men Type: BLOOD SPECIMEN Ordering Facility: [facility] Address: [address] [place] [address] Result Comment: Beta -2 Microglobulin test is performed using the [employer] immunoturbidimetric method. Results obtained with different methods or kits cannot be used interchangeably. Performed By: #### 2 132-9, 2885-2, 2284-8 #### [facility] CLIA [id number] [address] [place] [address] [place] CBC W Auto Differential pane l (Bld)on 05-31-2025 Basophils (Bld) [#/Vol] 0.04 10*3/uL Normal <0.11 [facility] Comment on above: Order Comment: Speci men Type: BLOOD SPECIMEN Ordering Facility: [facility] Address: [address] [place] [address] Performed By: #### 2 132-9, 2885-2, 8 #### [facility] CLIA [id number] [address] [place] [address] [place] Basophils/100 WBC (Bld) 0.5 % Normal [facility] Comment on above: Order Comment: Speci men Type: BLOOD SPECIMEN Ordering Facility: [facility] Address: [address] [place] [address] Performed By: #### 2 132-9, 2885-2, 2283-8 #### [facility] CLIA [id number] [address] [place] [address] [place] Differential cell count method Nom (Bld) Auto Normal [facility] Comment on above: Order Comment: Speci men Type: BLOOD SPECIMEN Ordering Facility: [facility] Address: [address] [place] [address] Performed By: #### 2 132-9, 2885-2, 8 #### [facility] CLIA [id number] [address] [place] [address] [place] Eosinophils (Bld) [#/Vol] 0.12 10*3/uL Normal <0.46 [facility] Comment on above: Order Comment: Speci men Type: BLOOD SPECIMEN Ordering Facility: [facility] Address: [address] [place] [address] Performed By: #### 2 132-9, 2885-2, 2284-04 #### [facility] CLIA [id number] [address] [place] [address] [place] Eosinophils/100 WBC (Bld) 1.4 % Normal [facility] Comment on above: Order Comment: Speci men Type: BLOOD SPECIMEN Ordering Facility: [facility] Address: [address] [place] [address] Performed By: #### 2 132-9, 2882, 8 #### [facility] CLIA [id number] [address] [place] [address] [place] Erythrocyte distribution width (RBC) [Ratio] 13.8 % Normal 11.5-15.0 [facility] Comment on above: Order Comment: Speci men Type: BLOOD SPECIMEN Ordering Facility: [facility] Address: [address] [place] [address] Performed By: #### 2 132-9, 288-2, 2284-04 #### [facility] CLIA [id number] [address] [place] [address] [place] Hematocrit (Bld) [Volume fraction] 40.6 % Normal 36.0-46.0 [facility] Comment on above: Order Comment: Speci men Type: BLOOD SPECIMEN Ordering Facility: [facility] Address: [address] [place] [address] Performed By: #### 2 132-9, 288-2, 8 #### [facility] CLIA [id number] [address] [place] [address] [place] Hemoglobin (Bld) [Mass/Vol] 13.1 g/dL Normal 11.5-15.5 [facility] Comment on above: Order Comment: Speci men Type: BLOOD SPECIMEN Ordering Facility: [facility] Address: [address] [place] [address] Performed By: #### 2 132-9, 288-2, 8 #### [facility] CLIA [id number] [address] [place] [address] [place] Immature granulocytes (Bld) [#/Vol] 0.03 10*3/uL Normal <0.10 [facility] Comment on above: Order Comment: Speci men Type: BLOOD SPECIMEN Ordering Facility: [facility] Address: [address] [place] [address] Performed By: #### 2 132-9, 288-2, 8 #### [facility] CLIA [id number] [address] [place] [address] [place] Immature granulocytes/100 WBC (Bld) 0.4 % Normal [facility] Comment on above: Order Comment: Speci men Type: BLOOD SPECIMEN Ordering Facility: [facility] Address: [address] [place] [address] Performed By: #### 2 132-9, 2882, 8 #### [facility] CLIA [id number] [address] [place] [address] [place] Lymphocytes (Bld) [#/Vol] 1.14 10*3/uL Normal 1.00-4.00 [facility] Comment on above: Order Comment: Speci men Type: BLOOD SPECIMEN Ordering Facility: [facility] Address: [address] [place] [address] Performed By: #### 2 132-9, 288-2, 8 #### [facility] CLIA [id number] [address] [place] [address] [place] Lymphocytes/100 WBC (Bld) 13.6 % Normal [facility] Comment on above: Order Comment: Speci men Type: BLOOD SPECIMEN Ordering Facility: [facility] Address: [address] [place] [address] Performed By: #### 2 132-9, 2885-2, 8 #### [facility] CLIA [id number] [address] [place] [address] [place] MCH (RBC) [Entitic mass] 30.9 pg Normal 26.0-34.0 [facility] Comment on above: Order Comment: Speci men Type: BLOOD SPECIMEN Ordering Facility: [facility] Address: [address] [place] [address] Performed By: #### 2 132-9, 2885-2, 8 #### [facility] CLIA [id number] [address] [place] [address] [place] MCHC (RBC) [Mass/Vol] 32.3 g/dL Normal 30.5-36.0 [facility] Comment on above: Order Comment: Speci men Type: BLOOD SPECIMEN Ordering Facility: [facility] Address: [address] [place] [address] Performed By: #### 2 132-9, 2885-2, 8 #### [facility] CLIA [id number] [address] [place] [address] [place] MCV (RBC) [Entitic vol] 95.8 fL Normal 80.0-100.0 [facility] Comment on above: Order Comment: Speci men Type: BLOOD SPECIMEN Ordering Facility: [facility] Address: [address] [place] [address] Performed By: #### 2 132-9, 2885-2, 8 #### [facility] CLIA [id number] [address] [place] [address] [place] Monocytes (Bld) [#/Vol] 0.68 10*3/uL Normal <0.87 [facility] Comment on above: Order Comment: Speci men Type: BLOOD SPECIMEN Ordering Facility: [facility] Address: [address] [place] [address] Performed By: #### 2 132-9, 2885-2, 2283-8 #### [facility] CLIA [id number] [address] [place] [address] [place] Monocytes/100 WBC (Bld) 8.1 % Normal [facility] Comment on above: Order Comment: Speci men Type: BLOOD SPECIMEN Ordering Facility: [facility] Address: [address] [place] [address] Performed By: #### 2 132-9, 2885-2, 2283-8 #### [facility] CLIA [id number] [address] [place] [address] [place] Neutrophils (Bld) [#/Vol] 6.37 10*3/uL Normal 1.45-7.50 [facility] Comment on above: Order Comment: Speci men Type: BLOOD SPECIMEN Ordering Facility: [facility] Address: [address] [place] [address] Performed By: #### 2 132-9, 2885-2, 8 #### [facility] CLIA [id number] [address] [place] [address] [place] Neutrophils/100 WBC (Bld) 76.0 % Normal [facility] Comment on above: Order Comment: Speci men Type: BLOOD SPECIMEN Ordering Facility: [facility] Address: [address] [place] [address] Performed By: #### 2 132-9, 2885-2, 228-8 #### [facility] CLIA [id number] [address] [place] [address] [place] Nucleated RBC (Bld) [#/Vol] 10*3/uL Normal <0.01 [facility] [facility] Comment on above: Order Comment: Speci men Type: BLOOD SPECIMEN Ordering Facility: [facility] Address: [address] [place] [address] Performed By: #### 2 132-9, 2885-2, 8 #### [facility] CLIA [id number] [address] [place] [address] [place] Nucleated RBC/100 WBC (Bld) [Ratio] 0.0 /100 WBC Normal [facility] Comment on above: Order Comment: Speci men Type: BLOOD SPECIMEN Ordering Facility: [facility] Address: [address] [place] [address] Performed By: #### 2 132-9, 2885-2, 8 #### [facility] CLIA [id number] [address] [place] [address] [place] Platelet mean volume (Bld) [Entitic vol] 10.6 fL Normal 9.0-12.7 [facility] Comment on above: Order Comment: Speci men Type: BLOOD SPECIMEN Ordering Facility: [facility] Address: [address] [place] [address] Performed By: #### 2 132-9, 288-2, 8 #### [facility] CLIA [id number] [address] [place] [address] [place] Platelets (Bld) [#/Vol] 232 10*3/uL Normal 150-400 [facility] Comment on above: Order Comment: Speci men Type: BLOOD SPECIMEN Ordering Facility: [facility] Address: [address] [place] [address] Performed By: #### 2 132-9, 288-2, 8 #### [facility] CLIA [id number] [address] [place], [place] [address] [place] RBC (Bld) [#/Vol] 4.24 10*6/uL Normal 3.90-5.20 [facility] Comment on above: Order Comment: Speci men Type: BLOOD SPECIMEN Ordering Facility: [facility] Address: [address] [place] [address] Performed By: #### 2 132-9, 2885-2, 8 #### [facility] CLIA [id number] [address] [place] [address] [place] WBC (Bld) [#/Vol] 8.38 10*3/uL Normal 3.70-11.00 [facility] Comment on above: Order Comment: Speci men Type: BLOOD SPECIMEN Ordering Facility: [facility] Address: [address] [place] [address] Performed By: #### 2 132-9, 2885-2, 8 #### [facility] CLIA [id number] [address] [place] [address] [place] Calcium.ionized [Moles/Vol]o n 05-31-2025 Calcium.ionized (Bld) [Mass/Vol] 1.28 mmol/L Normal 1.08-1.30 [facility] Comment on above: Order Comment: Speci men Type: BLOOD SPECIMEN Ordering Facility: [facility] Address: [address] [place] [address] Performed By: #### 2 132-9, 2885-2, 8 #### [facility] CLIA [id number] [address] [place] [address] [place] Calcium.ionized adjusted to pH 7.4 (Bld) [Moles/Vol] 1.24 mmol/L Normal 1.08-1.30 [facility] Comment on above: Order Comment: Speci men Type: BLOOD SPECIMEN Ordering Facility: [facility] Address: [address] [place] [address] Performed By: #### 2 132-9, 2885-2, 2283-8 #### [facility] CLIA [id number] [address] [place] [address] [place] Cancer Ag15-3 SerPl-aCncon 0 05-31-2025 Cancer Ag 15-3 Qn 12.6 U/mL Normal <26.0 [facility] Comment on above: Order Comment: Speci men Type: BLOOD SPECIMEN Ordering Facility: [facility] Address: [address] [place] [address] Result Comment: The CA 15-3 test methodology used is the Electrochemiluminescence Immunoassay by [employer]. Results obtained with different methods or kits cannot be used interchangeably. Performed By: #### 2 132-9, 2885-2, 2284-8 #### [facility] CLIA [id number] [address] [place] [address] [place] Comprehensive metabolic 2000 panelon 05-31-2025 Albumin [Mass/Vol] 3.9 g/dL Normal 3.9-4.9 [facility] Comment on above: Order Comment: Speci men Type: BLOOD SPECIMEN Ordering Facility: [facility] Address: [address] [place] [address] Performed By: #### 2 132-9, 2885-2, 2284-8 #### [facility] CLIA [id number] [address] [place] [address] [place] ALP [Catalytic activity/Vol] 105 U/L Normal 34-123 [facility] Comment on above: Order Comment: Speci men Type: BLOOD SPECIMEN Ordering Facility: [facility] Address: [address] [place] [address] Performed By: #### 2 132-9, 2885-2, 2284-8 #### [facility] CLIA [id number] [address] [place] [address] [place] ALT [Catalytic activity/Vol] 11 U/L Normal 7-38 [facility] Comment on above: Order Comment: Speci men Type: BLOOD SPECIMEN Ordering Facility: [facility] Address: [address] [place] [address] Performed By: #### 2 132-9, 2885-2, 8 #### [facility] CLIA [id number] [address] [place] [address] [place] Anion gap [Moles/Vol] 14 mmol/L Normal 8-15 [facility] Comment on above: Order Comment: Speci men Type: BLOOD SPECIMEN Ordering Facility: [facility] Address: [address] [place] [address] Performed By: #### 2 132-9, 2885-2, 8 #### [facility] CLIA [id number] [address] [place] [address] [place] AST [Catalytic activity/Vol] 19 U/L Normal 13-35 [facility] Comment on above: Order Comment: Speci men Type: BLOOD SPECIMEN Ordering Facility: [facility] Address: [address] [place] [address] Performed By: #### 2 132-9, 288-2, 8 #### [facility] CLIA [id number] [address] [place] [address] [place] Bilirubin [Mass/Vol] 0.4 mg/dL Normal 0.2-1.3 [facility] Comment on above: Order Comment: Speci men Type: BLOOD SPECIMEN Ordering Facility: [facility] Address: [address] [place] [address] Performed By: #### 2 132-9, 288-2, 8 #### [facility] CLIA [id number] [address] [place], [place] [address] [place] Calcium [Mass/Vol] 9.7 mg/dL Normal 8.5-10.2 [facility] Comment on above: Order Comment: Speci men Type: BLOOD SPECIMEN Ordering Facility: [facility] Address: [address] [place] [address] Performed By: #### 2 132-9, 2885-2, 8 #### [facility] CLIA [id number] [address] [place] [address] [place] Chloride [Moles/Vol] 103 mmol/L Normal 98-107 [facility] Comment on above: Order Comment: Speci men Type: BLOOD SPECIMEN Ordering Facility: [facility] Address: [address] [place] [address] Performed By: #### 2 132-9, 2885-2, 2284-8 #### [facility] CLIA [id number] [address] [place] [address] [place] CO2 [Moles/Vol] 23 mmol/L Normal 22-30 [facility] Comment on above: Order Comment: Speci men Type: BLOOD SPECIMEN Ordering Facility: [facility] Address: [address] [place] [address] Performed By: #### 2 132-9, 2885-2, 2284-8 #### [facility] CLIA [id number] [address] [place] [address] [place] Creatinine [Mass/Vol] 1.88 mg/dL High 0.58-0.96 [facility] Comment on above: Order Comment: Speci men Type: BLOOD SPECIMEN Ordering Facility: [facility] Address: [address] [place] [address] Performed By: #### 2 132-9, 2885-2, 2284-8 #### [facility] CLIA [id number] [address] [place] [address] [place] eGFRcr SerPlBld CKD-EPI 2020 27 mL/min/1.73m??? Low >=60 [facility] Comment on above: Order Comment: Speci men Type: BLOOD SPECIMEN Ordering Facility: [facility] Address: [address] [place] [address] Result Comment: Sugar mated Glomerular Filtration Rate [...] reflect actual GFR. Performed By: #### 2 132-9, 2885-2, 2284-04 #### [facility] CLIA [id number] [address] [address] [place] Glucose [Mass/Vol] 283 mg/dL High 74-99 [facility] Comment on above: Order Comment: Anastacio bonilla Type: BLOOD SPECIMEN Ordering Facility: [facility] Address: [address] [place] [address] Result Comment: The [place] Diabetes Association (ADA) provides guidance for cutoff [...] Standards of Medical Care in Diabetes 2016, [place] [employer]. Diabetes Care. 2016.39(Suppl 1). Performed By: #### 2 132-9, 2884-2, 2284-04 #### [facility] CLIA [id number] [address] [place] [address] [place] Potassium [Moles/Vol] 4.4 mmol/L Normal 3.7-5.1 [facility] Comment on above: Order Comment: Anastacio bonilla Type: BLOOD SPECIMEN Ordering Facility: [facility] Address: [address] [place] [address] Performed By: #### 2 132-9, 2885-2, 2284-04 #### [facility] CLIA [id number] [address] [address] [place] Protein [Mass/Vol] 7.1 g/dL Normal 6.3-8.0 [facility] Comment on above: Order Comment: Speci men Type: BLOOD SPECIMEN Ordering Facility: [facility] Address: [address] [place] [address] Performed By: #### 2 132-9, 2885-2, 8 #### [facility] CLIA [id number] [address] [place] [address] [place] Sodium [Moles/Vol] 140 mmol/L Normal 136-144 [facility] Comment on above: Order Comment: Speci men Type: BLOOD SPECIMEN Ordering Facility: [facility] Address: [address] [place] [address] Performed By: #### 2 132-9, 2885-2, 8 #### [facility] CLIA [id number] [address] [place] [address] [place] Urea nitrogen [Mass/Vol] 41 mg/dL High 7-21 [facility] Comment on above: Order Comment: Speci men Type: BLOOD SPECIMEN Ordering Facility: [facility] Address: [address] [place] [address] Performed By: #### 2 132-9, 2885-2, 8 #### [facility] CLIA [id number] [address] [place] [address] [place] Ferritin SerPl-mCncon 2024 Ferritin [Mass/Vol] 221.0 ng/mL High 14.7-205.1 [facility] Comment on above: Order Comment: Speci men Type: BLOOD SPECIMEN Ordering Facility: [facility] Address: [address] [place] [address] Performed By: #### 2 132-9, 2885-2, 8 #### [facility] CLIA [id number] [address] [place] [address] [place] Folate SerPl-mCncon 09-08-20 25 Folate [Mass/Vol] ng/mL Normal >4.7 [facility] Comment on above: Order Comment: Anastacio bonilla Type: BLOOD SPECIMEN Ordering Facility: [facility] Address: [address] [place] [address] Result Comment: A re sult of > 20 ng/mL is not necessarily indicative of a pathologic or treatable condition: it reflects a limitation of the test methodology. Assay reference range: 4.8 to 24.2 ng/mL. Suitable for detection of folate deficiency. Reference: Folate III (Folate III) [package insert V 1.0 [place]]. [facility], [place], [place]: July 2015. Performed By: #### 2 132-9, 2885-2, 2284-8 #### [facility] CLIA [id number] [address] [place] [address] [place] IMMUNOFIXATION SCREEN, SERUM on 05-31-2025 INTERPRETATION (MPA) Atypical restricted bands are present in the IgM and kappa regions. Consistent with IgM kappa monoclonal gammopathy. Normal [facility] Comment on above: Order Comment: Anastacio bonilla Type: BLOOD SPECIMEN Ordering Facility: [facility] Address: [address] [place] [address] Performed By: #### 2 132-9, 2885-2, 4-8 #### [facility] CLIA [id number] [address] [place] [address] [place] MPA RESULT M protein is present. Abnormal No M protein is identified. [facility] Comment on above: Order Comment: Anastacio bonilla Type: BLOOD SPECIMEN Ordering Facility: [facility] Address: [address] [place] [address] Performed By: #### 2 132-9, 2885-2, 4-8 #### [facility] CLIA [id number] [address] [place] [address] OF [place] STAFF REVIEW (MPA) Reviewed by Kenisha Gallo MD Normal [facility] Comment on above: Order Comment: Anastacio bonilla Type: BLOOD SPECIMEN Ordering Facility: [facility] Address: [address] [place] [address] Performed By: #### 2 132-9, 2885-2, 2284-8 #### [facility] CLIA [id number] [address] [place] [address] [place] IMMUNOGLOBULINS,IGG,IGA,IGMo n 05-31-2025 IgA [Mass/Vol] 259 mg/dL Normal 70-400 [facility] Comment on above: Order Comment: Speci men Type: BLOOD SPECIMEN Ordering Facility: [facility] Address: [address] [place] [address] Performed By: #### S ERIMM #### [facility] CLIA [id number] [address] [place] [address] [place] IgG [Mass/Vol] 805 mg/dL Normal 700-1600 [facility] Comment on above: Order Comment: Speci men Type: BLOOD SPECIMEN Ordering Facility: [facility] Address: [address] [place] [address] Performed By: #### S ERIMM #### [facility] CLIA [id number] [address] [place] [address] [place] IgM [Mass/Vol] 421 mg/dL High 40-230 [facility] Comment on above: Order Comment: Speci men Type: BLOOD SPECIMEN Ordering Facility: [facility] Address: [address] [place] [address] Performed By: #### S ERIMM #### [facility] CLIA [id number] [address] [place] [address] [place] Iron and Iron binding capaci ty panelon 05-31-2025 Iron [Mass/Vol] 82 ug/dL Normal 41-186 [facility] Comment on above: Order Comment: Speci men Type: BLOOD SPECIMEN Ordering Facility: [facility] Address: [address] [place] [address] Performed By: #### 2 132-9, 2885-2, 2284-8 #### [facility] CLIA [id number] [address] [place] [address] [place] Iron binding capacity [Mass/Vol] 269 ug/dL Normal 232-386 [facility] Comment on above: Order Comment: Speci men Type: BLOOD SPECIMEN Ordering Facility: [facility] Address: [address] [place] [address] Performed By: #### 2 132-9, 2885-2, 2284-8 #### [facility] CLIA [id number] [address] [place] [address] [place] Iron/TIBC [Molar ratio] 30.5 % Normal 15.0-57.0 [facility] Comment on above: Order Comment: Speci men Type: BLOOD SPECIMEN Ordering Facility: [facility] Address: [address] [place] [address] Performed By: #### 2 132-9, 2885-2, 2284-8 #### [facility] IA [id number] [address] [place] [address] [place] KAPPA/DIAZ,FREE,SERon 2024 Immunoglobulin light chains.kappa.free (S) [Mass/Vol] 54.4 mg/L High 3.3-19.4 [facility] Comment on above: Order Comment: Speci men Type: BLOOD SPECIMEN Ordering Facility: [facility] Address: [address] [place] [address] Result Comment: Rare ly, increased serum free light chains levels may not be detected or accurately quantified due to prozone phenomenon or in high viscosity samples using this immunoturbidimetric assay. Correlation with other laboratory results and clinical findings is recommended. The [place] Free Light Chain was performed using the Binding Site Optilite immunoturbidimetric method. Result obtained with different assay methods or kits cannot be used interchangeably. Performed By: #### L [id number] #### [facility] CLIA [id number] [address] [place] [address] [place] Immunoglobulin light chains.kappa/Immunoglo bulin light chains.lambda (S) [Mass ratio] 2.16 High 0.26-1.65 [facility] Comment on above: Order Comment: Speci men Type: BLOOD SPECIMEN Ordering Facility: [facility] Address: [address] [place] [address] Performed By: #### L [id number] #### [facility] CLIA [id number] [address] [place] [address] [place] Immunoglobulin light chains.lambda.free [Mass/Vol] 25.2 mg/L Normal 5.7-26.3 [facility] Comment on above: Order Comment: Speci men Type: BLOOD SPECIMEN Ordering Facility: [facility] Address: [address] [place] [address] Result Comment: Rare ly, increased serum free [...] cannot be used interchangeably. Performed By: #### L [id number] #### [facility] CLIA [id number] [address] [place] [address] [place] LDH SerPl-cCncon 05-31-2025 LDH [Catalytic activity/Vol] 254 U/L High 135-214 [facility] Comment on above: Order Comment: Speci men Type: BLOOD SPECIMEN Ordering Facility: [facility] Address: [address] [place] [address] Performed By: #### 2 132-9, 2885-2, 2284-8 #### [facility] CLIA [id number] [address] [place] [address] [place] PROTEIN ELECTROPHORESIS SERU M (P)on 05-31-2025 Albumin [Mass/Vol] 3.86 g/dL Normal 3.43-5.41 [facility] Comment on above: Order Comment: Speci men Type: BLOOD SPECIMEN Ordering Facility: [facility] Address: [address] [place] [address] Performed By: #### L [id number] #### [facility] CLIA [id number] [address] [place] [address] [place] Alpha 1 globulin Elph [Mass/Vol] 0.33 g/dL Normal 0.18-0.43 [facility] Comment on above: Order Comment: Speci men Type: BLOOD SPECIMEN Ordering Facility: [facility] Address: [address] [place] [address] Performed By: #### L [id number] #### [facility] CLIA [id number] [address] [place] [address] [place] Alpha 2 globulin Elph [Mass/Vol] 0.72 g/dL Normal 0.42-0.98 [facility] Comment on above: Order Comment: Speci men Type: BLOOD SPECIMEN Ordering Facility: [facility] Address: [address] [place] [address] Performed By: #### L [id number] #### [facility] CLIA [id number] [address] [place] [address] [place] Beta globulin Elph [Mass/Vol] 1.15 g/dL Normal 0.61-1.17 [facility] Comment on above: Order Comment: Speci men Type: BLOOD SPECIMEN Ordering Facility: [facility] Address: [address] [place] [address] Performed By: #### L [id number] #### [facility] CLIA [id number] [address] [place] [address] [place] Gamma globulin Elph [Mass/Vol] 0.64 g/dL Normal 0.53-1.51 [facility] Comment on above: Order Comment: Speci men Type: BLOOD SPECIMEN Ordering Facility: [facility] Address: [address] [place] [address] Performed By: #### L [id number] #### [facility] CLIA [id number] [address] [place] [address] [place] INTERPRETATION COMMENT FOR PROTEIN ELECTROPHORESIS See separate immunofixation report for characterization of monoclonal gammopathy. Normal [facility] Comment on above: Order Comment: Speci men Type: BLOOD SPECIMEN Ordering Facility: [facility] Address: [address] [place] [address] Performed By: #### L [id number] #### [facility] CLIA [id number] [address] [place] [address] [place] M-PROTEIN LOCATION Beta Fraction 1 Normal C [facility] Comment on above: Order Comment: Speci men Type: BLOOD SPECIMEN Ordering Facility: [facility] Address: [address] [place] [address] Performed By: #### L [id number] #### [facility] CLIA [id number] [address] [place] [address] [place] Protein Fractions [Interp] An M protein is identified on protein electrophoresis. Abnormal No definitive M protein is identified on protein electrophor esis. [facility] Comment on above: Order Comment: Speci men Type: BLOOD SPECIMEN Ordering Facility: [facility] Address: [address] [place] [address] Performed By: #### L [id number] #### [facility] CLIA [id number] [address] [place] [address] [place] Protein.monoclonal Elph [Mass/Vol] 0.38 g/dL High <=0.00 [facility] Comment on above: Order Comment: Speci men Type: BLOOD SPECIMEN Ordering Facility: [facility] Address: [address] [place] [address] Performed By: #### L [id number] #### [facility] CLIA [id number] [address] [place], [place] [address] [place] SPE STAFF REVIEW Reviewed by Rita Avery M.D., Ph.D Normal [facility] Comment on above: Order Comment: Speci men Type: BLOOD SPECIMEN Ordering Facility: [facility] Address: [address] [place], [place] [id number] Performed By: #### L [id number] #### [facility] CLIA [id number] [address] [place] [address] [place] Phosphate SerPl-mCncon 05-31 Phosphate [Mass/Vol] 3.5 mg/dL Normal 2.7-4.8 [facility] Comment on above: Order Comment: Speci men Type: BLOOD SPECIMEN Ordering Facility: [facility] Address: [address] [place] [address] Performed By: #### 2 132-9, 2885-2, 8 #### [facility] CLIA [id number] [address] [place] [address] [place] Prot SerPl-mCncon 05-31-2025 Protein [Mass/Vol] 6.7 g/dL Normal 6.3-8.0 [facility] Comment on above: Order Comment: Speci men Type: BLOOD SPECIMEN Ordering Facility: [facility] Address: [address] [place] [address] Performed By: #### 2 132-9, 288-2, 8 #### [facility] CLIA [id number] [address] [place] [address] [place] Urate SerPl-mCncon Urate [Mass/Vol] 7.2 mg/dL High 2.5-6.6 [facility] Comment on above: Order Comment: Speci men Type: BLOOD SPECIMEN Ordering Facility: [facility] Address: [address] [place] [address] Performed By: #### 2 132-9, 2880-2, 8 #### [facility] CLIA [id number] [address] [place] [address] [place] Vit B12 SerPl-mCncon 09-08-2 025 Cobalamin (Vitamin B12) [Mass/Vol] 513 pg/mL Normal 232-1245 [facility] Comment on above: Order Comment: Speci men Type: BLOOD SPECIMEN Ordering Facility: [facility] Address: [address] [place] [address] Performed By: #### 2 132-9, 2885-2, 2284-8 #### [facility] CLIA [id number] [address] [place] [address] [place] Albumin [Mass/volume] in Ser um or PlasmaOrdered By: Vince Rojo on 03-15-2025 Albumin [Mass/Vol] 3.6 g/dL 2.9-4.4 [facility] Erythrocyte distribution wid th Auto (RBC) [Ratio]Ordered By: Vince Rojo on 03-15-2025 Erythrocyte distribution width (RBC) [Ratio] 13.3 % 11.0-15.0 [facility] Estimated glomerular filtrat ion rate (GFR) non- AmericanOrdered By: Vince Rojo on 03-15-2025 GFR/1.73 sq M.predicted among non-blacks MDRD (S/P/Bld) [Vol rate/Area] 24 mL/min/{1.73_m2} Low >=60 mL/min/1.73 m 2 [facility] Hematocrit Auto (Bld) [Volum e fraction]Ordered By: Vince Rojo on 03-15-2025 Hematocrit (Bld) [Volume fraction] 41.7 % 36.0-48.0 [facility] Hemoglobin [Mass/volume] in BloodOrdered By: Vince Alia on 03-15-2025 Hemoglobin (Bld) [Mass/Vol] 13.8 g/dL 12.0-16.0 [facility] IgA [Mass/volume] in Serum o r PlasmaOrdered By: Vince Alia on 03-15-2025 IgA [Mass/Vol] 299 mg/dL 64-422 [facility] IgG [Mass/volume] in Serum o r PlasmaOrdered By: Vince Alia on 03-15-2025 IgG [Mass/Vol] 851 mg/dL [id number] [facility] IgM [Mass/volume] in Serum o r PlasmaOrdered By: Vince Rojo on 03-15-2025 IgM [Mass/Vol] 443 mg/dL Abnormal 26-217 [facility] Immunofixation for UrineOrde red By: Vince Rojo on 03-15-2025 Interpretation Immunofixation (U) [Interp] Comment Abnormal . [facility] Comment on above: Bence Morton Protein positive; kappa type.Performed at: [employer] [facility] [address] [id number] Director: Yrn Maher PhD, Phone: [phone] Immunoglobulin light chains. kappa.free [Mass/volume] in SerumOrdered By: Vince Rojo on 03-15-2025 Immunoglobulin light chains.kappa.free (S) [Mass/Vol] 52.8 mg/L Abnormal 3.3-19.4 [facility] Immunoglobulin light chains. kappa.free/Immunoglobulin light chains.lambda.free [MassOrdered By: Vince Rojo on 03-15-2025 Immunoglobulin light chains.kappa.free/Immu noglobulin light chains.lambda.free (S) [Mass ratio] 2.21 Abnormal 0.26-1.65 [facility] Comment on above: Performed at: [employer] [facility] [address] [id number] Director: Yrn Maher PhD, Phone: [phone] Immunoglobulin light chains. lambda.free [Mass/volume] in Serum or PlasmaOrdered By: Vince Rojo on 03-15-2025 Immunoglobulin light chains.lambda.free [Mass/Vol] 23.9 mg/L 5.7-26.3 [facility] Laboratory - Chemistry and C hemistry - challengeOrdered By: Vince Rojo on 03-15-2025 Calcium [Mass/Vol] 9.4 mg/dL 8.5-10.1 [facility] Chloride [Moles/Vol] 104 mmol/L 98-107 [facility] CO2 [Moles/Vol] 31.0 mmol/L 21.0-32.0 [facility] Creatinine [Mass/Vol] 2.02 mg/dL High 0.55-1.[address] [facility] Ferritin [Mass/Vol] 151.0 ng/mL 8.0-252.0 [facility] GFR/1.73 sq M.predicted MDRD (S/P/Bld) [Vol rate/Area] 29 mL/min/{1.73_m2} Low >=60 mL/min/1.73 m 2 [facility] Glucose [Mass/Vol] 162 mg/dL High 74-106 [facility] Magnesium [Mass/Vol] 2.0 mg/dL 1.8-2.4 [facility] Potassium [Moles/Vol] 4.3 mmol/L 3.5-5.[address] [facility] Protein [Mass/Vol] 0.5 g/dL Abnormal Not Observed [facility] Sodium [Moles/Vol] 142 mmol/L 136-145 [facility] Urate [Mass/Vol] 9.3 mg/dL High 2.6-6.0 [facility] Urea nitrogen [Mass/Vol] 48.0 mg/dL High 7.0-18.0 [facility] Urea nitrogen/Creatinine [Mass ratio] 23.8 mg/mg [facility] Bilirubin Ql (U) Negative NEGATIVE [facility] Glucose (U) [Mass/Vol] Negative NEGATIVE [facility] Ketones Ql (U) Negative NEGATIVE [facility] pH (U) 6.0 [pH] 5.0-9.0 [facility] Specific gravity (U) [Rel density] 1.020 1.005-1.025 [facility] Urobilinogen Qn (U) 0.2 {Sánchez'U}/dL 0.2-1.0 [facility] Laboratory - Specimen inform ationOrdered By: Vince Rojo on 03-15-2025 Appearance (U) SL CLOUDY CLEAR [facility] Color (U) YELLOW YELLOW [facility] Laboratory - UrinalysisOrder ed By: Vince Rojo on 03-15-2025 Leukocyte esterase Test strip Ql (U) MODERATE Abnormal NEGATIVE [facility] Mucus Ql (Urine sed) NONE SEEN NONE SEEN [facility] Nitrite Ql (U) Negative NEGATIVE [facility] Protein (U) [Mass/Vol] 109.7 mg/dL High <=11.9 [facility] Protein Ql (U) 100 mg/dL Abnormal NEG/TRACE [facility] Leukocytes [#/volume] correc chetna for nucleated erythrocytes in Blood by Automated counOrdered By: Vince Rojo on 03-15-2025 WBC corrected for nucl RBC Auto (Bld) [#/Vol] 12.2 10 3/uL High 4.0-11.0 [facility] MCH Auto (RBC) [Entitic mass ]Ordered By: Vince Rojo on 03-15-2025 MCH (RBC) [Entitic mass] 30.3 pg 26.7-34.0 [facility] MCHC Auto (RBC) [Mass/Vol]Or dered By: Vince Rojo on 03-15-2025 MCHC (RBC) [Mass/Vol] 33.1 g/dL 29.9-35.[address] [facility] MCV Auto (RBC) [Entitic vol] Ordered By: Vince Rojo on 03-15-2025 MCV (RBC) [Entitic vol] 91.4 fL 81.0-99.0 [facility] No Panel InformationOrdered By: Vince Rojo on 03-15-2025 25-Hydroxy Vitamin D Total 39.1 ng/mL [facility] Comment on above: <20 ng/mL Vit D defi cient20-<30 ng/mL Vit D [id number] ng/mL Vit D sufficient>100 ng/mL Potential Toxicity Parathyroid Hormone (Intact) 88 pg/mL Abnormal 15-65 [facility] Comment on above: Performed at: [address] [id number] Director: Yrn Maher PhD, Phone: [phone] Phosphorus Level 3.2 mg/dL 2.6-4.7 [facility] Protein Electrophoresis Note Comment . [facility] Comment on above: Protein electrophore sis scan will follow via computer,mail, or insurance sales manager delivery. Urine Bacteria MODERATE #/HPF Abnormal NONE SEEN [facility] Urine Culture Reflexed YES-[facility] Urine Occult Blood SMALL Abnormal NEGATIVE [facility] Urine Other Casts NONE SEEN #/LPF NONE SEEN [facility] Urine Other Crystals None Seen #/HPF None Seen [facility] Urine Random Creatinine 130.65 mg/dL 20.00-300.0 0 [facility] Urine RBC 2-5 #/HPF Abnormal 0-2 [facility] Urine Squamous Epithelial Cells MANY #/LPF Abnormal NONE/RARE [facility] Urine WBC 20-50 #/HPF Abnormal NONE SEEN [facility] Platelet mean volume Auto (B ld) [Entitic vol]Ordered By: Vince Rojo on 03-15-2025 Platelet mean volume (Bld) [Entitic vol] 10.9 fL 9.5-13.5 [facility] Platelets Auto (Bld) [#/Vol] Ordered By: Vince Rojo on 03-15-2025 Platelets (Bld) [#/Vol] 269 10 3/uL 150-450 [facility] Protein [Mass/volume] in Ser um or PlasmaOrdered By: Vince Rojo on 03-15-2025 Protein [Mass/Vol] 6.9 g/dL 6.0-8.5 [facility] RBC Auto (Bld) [#/Vol]Ordere d By: Vince Rojo on 03-15-2025 RBC (Bld) [#/Vol] 4.56 10 6/uL 4.20-5.40 [facility] Serum globulin measurement ( mass/volume)Ordered By: Vince Rojo on 03-15-2025 Globulin (S) [Mass/Vol] 3.3 g/dL 2.2-3.9 [facility] Serum or plasma albumin/glob ulin mass ratioOrdered By: Vince Rojo on 03-15-2025 Albumin/Globulin [Mass ratio] 1.1 {ratio} 0.7-1.7 [facility] Serum or plasma alpha 1 glob ulin measurement by electrophoresis (mass/volume)Ordered By: Vince Rojo on 03-15-2025 Alpha 1 globulin Elph [Mass/Vol] 0.3 g/dL 0.0-0.4 [facility] Serum or plasma alpha 2 glob ulin measurement by electrophoresis (mass/volume)Ordered By: Vicne Rojo on 03-15-2025 Alpha 2 globulin Elph [Mass/Vol] 0.9 g/dL 0.4-1.0 [facility] Serum or plasma anion gap de terminationOrdered By: Vince Rojo on 03-15-2025 Anion gap [Moles/Vol] 11.3 mmol/L [facility] Serum or plasma beta globuli n measurement by electrophoresis (mass/volume)Ordered By: Vince Rojo on 03-15-2025 Beta globulin Elph [Mass/Vol] 1.0 g/dL 0.7-1.3 [facility] Serum or plasma gamma globul in measurement by electrophoresis (mass/volume)Ordered By: Vince Rojo on 03-15-2025 Gamma globulin Elph [Mass/Vol] 1.2 g/dL 0.4-1.8 [facility] Serum or plasma immunoelectr ophoresis interpretationOrdered By: Vince Rojo on 03-15-2025 Interpretation IEP [Interp] Comment Abnormal . [facility] Comment on above: Immunofixation shows IgM monoclonal protein with kappalight chain specificity.ASTON also shows an asymmetrical lambda. Urine Cultureon 03-15-2025 Bacteria identified Cx Nom (U) ORGANISM: Proteus mirabilis (O:PROMIR) [place] Count >100,000 Aerobic ARLIN Charge ([id number]) SUSCEPTIBILITY ORGANISM: O:PROMIR ANTIBIOTIC INTERPRETATION ARLIN Amikacin S <16 Amoxacillin/K Clavulanate S <8 Ampicillin S <8 Ampicillin/Sulbactam S <4 Aztreonam S <4 Cefazolin S <2 Cefepime S <2 Ceftazidime S <1 Ceftazidime/Avibactam S <4 Ceftolozane/Tazobactam S <2 Ceftriaxone S <1 Cefuroxime S <4 Ciprofloxacin S <0.25 Ertapenem S <0.5 Gentamicin S <2 Levofloxacin S <0.5 Meropenem S <1 Meropenem/Vaborbactam S <2 Piperacillin/Tazobactam S <8 Tobramycin S <2 Trimethoprim/Sulfamethoxa zole S <0.5 S = SUSCEPTIBLE I = INTERMEDIATE R = RESISTANT BLANK = DATA NOT AVAILABLE, OR DRUG NOT ADVISABLE OR TESTED R* = RESISTANCE DUE TO EXTENDED SPECTRUM BETA-LACTAMASES ESBL = EXTENDED SPECTRUM BETA-LACTAMASE TFG = THYMIDINE-DEPENDENT STRAIN CARTER = BETA-LACTAMASE POSITIVE IB = INDUCIBLE BETA-LACTAMASE. APPEARS IN PLACE OF 'S' WITH SPECIES KNOWN TO POSSESS INDUCIBLE BETA-LACTAMASES. POTENTIALLY THEY MAY BECOME RESISTANT TO ALL B-LACTAM DRUGS. PERFORMED BY: [facility] [address] [place] [address] PATHOLOGIST IP PARALEGAL LILIANA MYERS M.D. Normal [facility] Comment on above: Performed By: #### C UU #### [facility] [address] Urine protein/creatinine rat ioOrdered By: Vince Rojo on 03-15-2025 Protein/Creatinine (U) [Ratio] 0.84 [facility] Office Visiton 01-25-2025 Follow-up visit [id number] Wayne Barros 1945 F Date Provider Department Center 01/25/2025 GISSELL WANG KASHIF [facility] Family History Problem Relation Age of Onset Coronary artery disease Mother Coronary artery disease Father Coronary artery disease Sister Coronary artery disease Brother Family Status - Relation Status Age at Mother Father Sister Alive Brother Level of Service:21959 [place] OFFICE/OUTPATIENT ESTABLISHED MOD MDM 30 MIN Normal [facility] 36on 12-01-2024 36 No objections to try , just need to closely watch renal function given her CKD as her renal function worsened with lisinopril. Recommend starting low dose either 12/13mg BID or 24/26mg BID with follow-up BMP in 2 weeks. Thanks! Normal [facility] B2 Microglob SerPl-mCncon Cjnt-8-Rnqdkdmmkewum [Mass/Vol] 5.1 ug/mL High <3.1 [facility] Comment on above: Order Comment: Speci men Type: BLOOD SPECIMEN Ordering Facility: [facility] Address: [address] [place] [address] Result Comment: Beta -2 Microglobulin test is performed using the [employer] immunoturbidimetric method. Results obtained with different methods or kits cannot be used interchangeably. Performed By: #### 2 132-9, 2885-2, 8 #### [facility] CLIA [id number] [address] [place] [address] [place] CA 27.29on 11-27-2024 Cancer Ag 27-29 Qn 15.3 [arb'U]/mL Normal <38.6 C [facility] Comment on above: Order Comment: Anastacio bonilla Type: BLOOD SPECIMEN Ordering Facility: [facility] Address: [address] [place] [address] Result Comment: The CA27.29 test was performed using the [employer] XP chemiluminometric immunoassay method. Results obtained with different assay methods or kits cannot be used interchangeably. [facility] will discontinue CA 27.29 testing effective 02/09/2025, with CA 15-3 as its replacement. In preparation for the discontinuation, CA 15-3 testing in parallel was conducted with CA 27.29 to establish a new baseline. Performed By: #### L [id number] #### [facility] CLIA [id number] [address] [place] [address] [place] CBC W Auto Differential pane l (Bld)on 11-27-2024 Basophils (Bld) [#/Vol] 0.06 10*3/uL Normal <0.11 [facility] Comment on above: Order Comment: Sosai irene Type: BLOOD SPECIMEN Ordering Facility: [facility] Address: [address] [place] [address] Performed By: #### 2 132-9, 2885-2, 2283-8 #### [facility] CLIA [id number] [id number] [address] [place] Basophils/100 WBC (Bld) 0.6 % Normal [facility] Comment on above: Order Comment: Speci men Type: BLOOD SPECIMEN Ordering Facility: [facility] Address: [address] [place] [address] Performed By: #### 2 132-9, 288-2, 2284-04 #### [facility] CLIA [id number] [address] [place] [address] [place] Differential cell count method Nom (Bld) Auto Normal [facility] Comment on above: Order Comment: Speci men Type: BLOOD SPECIMEN Ordering Facility: [facility] Address: [address] [place] [address] Performed By: #### 2 132-9, 2, 2284-04 #### [facility] CLIA [id number] [address] [place] [address] [place] Eosinophils (Bld) [#/Vol] 0.14 10*3/uL Normal <0.46 [facility] Comment on above: Order Comment: Speci men Type: BLOOD SPECIMEN Ordering Facility: [facility] Address: [address] [place] [address] Performed By: #### 2 132-9, 2, 2284-04 #### [facility] CLIA [id number] [address] [place] [address] [place] Eosinophils/100 WBC (Bld) 1.5 % Normal [facility] Comment on above: Order Comment: Speci men Type: BLOOD SPECIMEN Ordering Facility: [facility] Address: [address] [place] [address] Performed By: #### 2 132-9, 2, 2284-04 #### [facility] CLIA [id number] [address] [place] [address] [place] Erythrocyte distribution width (RBC) [Ratio] 13.0 % Normal 11.5-15.0 [facility] Comment on above: Order Comment: Speci men Type: BLOOD SPECIMEN Ordering Facility: [facility] Address: [address] [place] [address] Performed By: #### 2 132-9, 2885-2, 8 #### [facility] CLIA [id number] [address] [place] [address] [place] Hematocrit (Bld) [Volume fraction] 38.4 % Normal 36.0-46.0 [facility] Comment on above: Order Comment: Speci men Type: BLOOD SPECIMEN Ordering Facility: [facility] Address: [address] [place] [address] Performed By: #### 2 132-9, 2885-2, 8 #### [facility] CLIA [id number] [address] [place] [address] [place] Hemoglobin (Bld) [Mass/Vol] 12.6 g/dL Normal 11.5-15.5 [facility] Comment on above: Order Comment: Speci men Type: BLOOD SPECIMEN Ordering Facility: [facility] Address: [address] [place] [address] Performed By: #### 2 132-9, 288-2, 8 #### [facility] CLIA [id number] [address] [place] [address] [place] Immature granulocytes (Bld) [#/Vol] 0.03 10*3/uL Normal <0.10 [facility] Comment on above: Order Comment: Speci men Type: BLOOD SPECIMEN Ordering Facility: [facility] Address: [address] [place] [address] Performed By: #### 2 132-9, 288-2, 8 #### [facility] CLIA [id number] [address] [place] [address] [place] Immature granulocytes/100 WBC (Bld) 0.3 % Normal [facility] Comment on above: Order Comment: Speci men Type: BLOOD SPECIMEN Ordering Facility: [facility] Address: [address] [place] [address] Performed By: #### 2 132-9, 2885-2, 2284-8 #### [facility] CLIA [id number] [address] [place] [address] [place] Lymphocytes (Bld) [#/Vol] 1.25 10*3/uL Normal 1.00-4.00 [facility] Comment on above: Order Comment: Speci men Type: BLOOD SPECIMEN Ordering Facility: [facility] Address: [address] [place] [address] Performed By: #### 2 132-9, 2885-2, 2283-8 #### [facility] CLIA [id number] [address] [place] [address] [place] Lymphocytes/100 WBC (Bld) 13.1 % Normal [facility] Comment on above: Order Comment: Speci men Type: BLOOD SPECIMEN Ordering Facility: [facility] Address: [address] [place] [address] Performed By: #### 2 132-9, 2885-2, 2283-8 #### [facility] CLIA [id number] [address] [place] [address] [place] MCH (RBC) [Entitic mass] 30.2 pg Normal 26.0-34.0 [facility] Comment on above: Order Comment: Speci men Type: BLOOD SPECIMEN Ordering Facility: [facility] Address: [address] [place] [address] Performed By: #### 2 132-9, 2885-2, 228-8 #### [facility] CLIA [id number] [address] [place] [address] [place] MCHC (RBC) [Mass/Vol] 32.8 g/dL Normal 30.5-36.0 [facility] Comment on above: Order Comment: Speci men Type: BLOOD SPECIMEN Ordering Facility: [facility] Address: [address] [place] [address] Performed By: #### 2 132-9, 2885-2, 2284-8 #### [facility] CLIA [id number] [address] [place] [address] [place] MCV (RBC) [Entitic vol] 92.1 fL Normal 80.0-100.0 [facility] Comment on above: Order Comment: Speci men Type: BLOOD SPECIMEN Ordering Facility: [facility] Address: [address] [place] [address] Performed By: #### 2 132-9, 2885-2, 4-8 #### [facility] CLIA [id number] [address] [place] [address] [place] Monocytes (Bld) [#/Vol] 0.92 10*3/uL High <0.87 [facility] Comment on above: Order Comment: Speci men Type: BLOOD SPECIMEN Ordering Facility: [facility] Address: [address] [place] [address] Performed By: #### 2 132-9, 2885-2, 2283-8 #### [facility] CLIA [id number] [address] [place] [address] [place] Monocytes/100 WBC (Bld) 9.7 % Normal [facility] Comment on above: Order Comment: Speci men Type: BLOOD SPECIMEN Ordering Facility: [facility] Address: [address] [place] [address] Performed By: #### 2 132-9, 2885-2, 8 #### [facility] CLIA [id number] [address] [place] [address] [place] Neutrophils (Bld) [#/Vol] 7.13 10*3/uL Normal 1.45-7.50 [facility] Comment on above: Order Comment: Speci men Type: BLOOD SPECIMEN Ordering Facility: [facility] Address: [address] [place] [address] Performed By: #### 2 132-9, 288-2, 8 #### [facility] CLIA [id number] [address] [place] [address] [place] Neutrophils/100 WBC (Bld) 74.8 % Normal [facility] Comment on above: Order Comment: Speci men Type: BLOOD SPECIMEN Ordering Facility: [facility] Address: [address] [place] [address] Performed By: #### 2 132-9, 288-2, 8 #### [facility] CLIA [id number] [address] [place] [address] [place] Nucleated RBC (Bld) [#/Vol] 10*3/uL Normal <0.01 [facility] Comment on above: Order Comment: Speci men Type: BLOOD SPECIMEN Ordering Facility: [facility] Address: [address] [place] [address] Performed By: #### 2 132-9, 288-2, 2284-04 #### [facility] CLIA [id number] [address] [place] [address] [place] Nucleated RBC/100 WBC (Bld) [Ratio] 0.0 /100 WBC Normal [facility] Comment on above: Order Comment: Speci men Type: BLOOD SPECIMEN Ordering Facility: [facility] Address: [address] [place] [address] Performed By: #### 2 132-9, 288-2, 2284-04 #### [facility] CLIA [id number] [address] [place], [place] [id number] [place] Platelet mean volume (Bld) [Entitic vol] 10.5 fL Normal 9.0-12.7 [facility] Comment on above: Order Comment: Speci men Type: BLOOD SPECIMEN Ordering Facility: [facility] Address: [address] [place] [address] Performed By: #### 2 132-9, 288-2, 8 #### [facility] CLIA [id number] [address] [place] [address] [place] Platelets (Bld) [#/Vol] 259 10*3/uL Normal 150-400 [facility] Comment on above: Order Comment: Speci men Type: BLOOD SPECIMEN Ordering Facility: [facility] Address: [address] [place] [address] Performed By: #### 2 132-9, 2885-2, 2284-8 #### [facility] CLIA [id number] [address] [place] [address] [place] RBC (Bld) [#/Vol] 4.17 10*6/uL Normal 3.90-5.20 [facility] Comment on above: Order Comment: Speci men Type: BLOOD SPECIMEN Ordering Facility: [facility] Address: [address] [place] [address] Performed By: #### 2 132-9, 2885-2, 2284-8 #### [facility] CLIA [id number] [address] [place] [address] [place] WBC (Bld) [#/Vol] 9.53 10*3/uL Normal 3.70-11.00 [facility] Comment on above: Order Comment: Speci men Type: BLOOD SPECIMEN Ordering Facility: [facility] Address: [address] [place] [address] Performed By: #### 2 132-9, 2885-2, 2284-8 #### [facility] CLIA [id number] [address] [place] [address] [place] CNOVSPon 11-27-2024 CNOVSP Visit (SP) Office ([place]) ----- ANDREW BARROS ([id number]) 1945 F Date Time Provider Department 11/27/24 11:20 AM SANDEEP LENZ During your visit today, we recorded the following information about you: Temperature Pulse Respiration Blood pressure 97.8 degrees 64/minute 16/minute 139/76 Weight 68.4 kg Sandeep Lenz MD 11/27/2024 6:11 PM Signed NAME: Andrew Barros CLINIC NO.: [id number] DATE OF SERVICE: November 27, 2024 (Eduardo) Some elements in this clinic note that are critical to medical decision making have been carefully reviewed and included from a prior clinic note dated: October 19, 2024 (Eduardo) Referring Provider: Eduardo Sharpe Additional Clinicians involved in Andrew Barros's care: DIAGNOSIS: History of Breast Cancer ASSESSMENT: 79 year old woman with Left breast upper outer quadrant, invasive ductal carcinoma, ER postive, FL positive, 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 CBC remains stable. Calcium remains WNL. Will repeat labs in 3 months and then as long as everything remains stable, will resume either q6m or annual follow-up. PLAN: RTC 6 months Exam same day Labs 1 week before __ HPI: CASE HISTORY: Reverse Chronological Order 08/31/2024 - Bilateral Screening Mammogram: No significant suspicious finding. Scattered benign-appearing calcifications are present. 07/17/2024 - CBC: 12.3 > 13.0 / 39.9 < 306, eGFR: 26, Creatinine: 1.71 [place]: 61.0, Lambda: 23.4, K/L Ratio: 2.61 IgA: 180, Ig, IgM: 382 M-protein concentration: 0.4 05/26/2024 - EGD: Dr. Amanda Contreras at [facility] A. Polyp, stomach, biopsy: - Hyperplastic polyp B. Stomach, biopsy: - Reactive/chemical gastropathy with hyperplastic changes - H. Pylori immunostain is negative for H. Pylori organisms 04/16/2024 - A. Kidney, Left, Biopsy: - Focal global glomerulosclerosis, mild. See comment. - Tubular atrophy and interstitial fibrosis, mild. - Arteriosclerosis, moderate, and arteriolosclerosis, moderate to severe. Comment: Immunofluorescence is essentially negative, providing evidence against active [...] be contributing to the patient's renal presentation. 03/20/2024 - PET/CT: PET negative for lytic lesions. Notes distal gastric uptake. 02/24/2024 - CBC: 9.73 > 13.6 / 42.2 < 285, eGFR: 31, Creatinine: 1.67 [place]: 54.7, Lambda: 23.7, K/L Ratio: 2.31 IgA: 302, Ig, IgM: 426 M-protein concentration: 0.53 08/28/2023 - Bilateral Mammogram Diagnostic category 2 Benign 05/02/2023 - Bone Scan: Negative for osseous mets. 11/14/2021 - Had intracranial hemorrhage with intracerebral hematoma in the right tempora lobe due to HTN and warfarin. 04/24/2021 - DEXA scan World Health Organization classification: Normal-low fracture risk. 01/04/2021 - Mammograms at [facility] Bi-Rads 2 benign. 09/26/2018-11/25/2023 - Arimidex 09/10/2018 - Completed radiation 06/05/2018 - L breast lumpectomy and SNB Updated Visit, November 27, 2024: Swelling in bilateral legs from CHF managed by Cardiology. Otherwise doing well. Daughter Janki is with her. Prefers to defer breast exam today. Updated Visit, October 19, 2024: Andrew returns with her son, Frantz. Results of today's labs are pending. 08/2024's screening mammogram revealed no significant suspicious findings, there are benign-appearing calcifications present. Updated Visit, July 22, 2024: Andrew returns with Janki to review recent labs. M-spike and IgG are stable overall from my perspective - no indications for a BMBx at this time. Kidney and stomach biopsies were negative for malignancy. Updated Visit, March 24, 2024: Virtual Visit Andrew presents for a virtual visit. She is joined by Sugey and her granddaughter, Shasta. 24 hour urine was positive for M-protein and s (more content not included)... Normal [facility] Calcium.ionized [Moles/Vol]o n 11-27-2024 Calcium.ionized (Bld) [Mass/Vol] 1.25 mmol/L Normal 1.08-1.30 [facility] Comment on above: Order Comment: Speci men Type: BLOOD SPECIMEN Ordering Facility: [facility] Address: [address] [place] [address] Performed By: #### L [id number] #### [facility] CLIA [id number] [address] [place] [address] [place] Calcium.ionized adjusted to pH 7.4 (Bld) [Moles/Vol] 1.24 mmol/L Normal 1.08-1.30 [facility] Comment on above: Order Comment: Speci men Type: BLOOD SPECIMEN Ordering Facility: [facility] Address: [address] [place] [address] Performed By: #### L [id number] #### [facility] CLIA [id number] [address] [id number] [address] [place] Cancer Ag15-3 SerPl-aCncon 0 11-27-2024 Cancer Ag 15-3 Qn 13.2 U/mL Normal <26.0 [facility] Comment on above: Order Comment: Speci men Type: BLOOD SPECIMEN Ordering Facility: [facility] Address: [address] [place] [address] Result Comment: The CA 15-3 test methodology used is the Electrochemiluminescence Immunoassay by [employer]. Results obtained with different methods or kits cannot be used interchangeably. [facility] will discontinue CA 27.29 testing effective 02/09/2025, with CA 15-3 as its replacement. In preparation for the discontinuation, CA 15-3 testing in parallel was conducted with CA 27.29 to establish a new baseline. Performed By: #### 2 132-9, 2885-2, 8 #### [facility] CLIA [id number] [address] [place] [address] [place] Comprehensive metabolic 2000 panelon 11-27-2024 Albumin [Mass/Vol] 4.0 g/dL Normal 3.9-4.9 [facility] Comment on above: Order Comment: Speci men Type: BLOOD SPECIMEN Ordering Facility: [facility] Address: [address] [place] [address] Performed By: #### 2 132-9, 2885-2, 8 #### [facility] CLIA [id number] [address] [place] [address] [place] ALP [Catalytic activity/Vol] 103 U/L Normal 34-123 [facility] Comment on above: Order Comment: Speci men Type: BLOOD SPECIMEN Ordering Facility: [facility] Address: [address] [place] [address] Performed By: #### 2 132-9, 2885-2, 8 #### [facility] CLIA [id number] [address] [place], [place] [address] [place] ALT [Catalytic activity/Vol] 9 U/L Normal 7-38 [facility] Comment on above: Order Comment: Speci men Type: BLOOD SPECIMEN Ordering Facility: [facility] Address: [address] [place] [address] Performed By: #### 2 132-9, 2885-2, 2283-8 #### [facility] CLIA [id number] [address] [place] [address] [place] Anion gap [Moles/Vol] 10 mmol/L Normal 8-15 [facility] Comment on above: Order Comment: Speci men Type: BLOOD SPECIMEN Ordering Facility: [facility] Address: [address] [place] [address] Performed By: #### 2 132-9, 2885-2, 8 #### [facility] CLIA [id number] [address] [place] [address] [place] AST [Catalytic activity/Vol] 15 U/L Normal 13-35 [facility] Comment on above: Order Comment: Speci men Type: BLOOD SPECIMEN Ordering Facility: [facility] Address: [address] [place] [address] Performed By: #### 2 132-9, 2885-2, 8 #### [facility] CLIA [id number] [address] [place] [address] [place] Bilirubin [Mass/Vol] 0.4 mg/dL Normal 0.2-1.3 [facility] Comment on above: Order Comment: Speci men Type: BLOOD SPECIMEN Ordering Facility: [facility] Address: [address] [place] [address] Performed By: #### 2 132-9, 2885-2, 2283-8 #### [facility] CLIA [id number] [address] [place] [address] [place] Calcium [Mass/Vol] 9.6 mg/dL Normal 8.5-10.2 [facility] Comment on above: Order Comment: Speci men Type: BLOOD SPECIMEN Ordering Facility: [facility] Address: [address] [place] [address] Performed By: #### 2 132-9, 2885-2, 2284-8 #### [facility] CLIA [id number] [address] [place] [address] [place] Chloride [Moles/Vol] 105 mmol/L Normal 98-107 [facility] Comment on above: Order Comment: Speci men Type: BLOOD SPECIMEN Ordering Facility: [facility] Address: [address] [place] [address] Performed By: #### 2 132-9, 2885-2, 2284-8 #### [facility] CLIA [id number] [address] [place] [address] [place] CO2 [Moles/Vol] 27 mmol/L Normal 22-30 [facility] Comment on above: Order Comment: Speci men Type: BLOOD SPECIMEN Ordering Facility: [facility] Address: [address] [place] [address] Performed By: #### 2 132-9, 2885-2, 228-8 #### [facility] CLIA [id number] [address] [place] [address] [place] Creatinine [Mass/Vol] 1.61 mg/dL High 0.58-0.96 [facility] Comment on above: Order Comment: Speci men Type: BLOOD SPECIMEN Ordering Facility: [facility] Address: [address] [place] [address] Performed By: #### 2 132-9, 2885-2, 2288 #### [facility] CLIA [id number] [address] [place] [address] [place] Creatinine and Glomerular filtration rate.predicted panel (S/P/Bld) 32 mL/min/1.73m??? Low >=60 [facility] Comment on above: Order Comment: Speci men Type: BLOOD SPECIMEN Ordering Facility: [facility] Address: [address] [place] [address] Result Comment: Sugar mated Glomerular Filtration Rate [...] reflect actual GFR. Performed By: #### 2 132-9, 2885-2, 8 #### [facility] CLIA [id number] [address] [place] [address] [place] Glucose [Mass/Vol] 159 mg/dL High 74-99 [facility] Comment on above: Order Comment: Anastacio bonilla Type: BLOOD SPECIMEN Ordering Facility: [facility] Address: [address] [place] [address] Result Comment: The [place] Diabetes Association (ADA) provides guidance for cutoff [...] Standards of Medical Care in Diabetes 2016, [place] [employer]. Diabetes Care. 2016.39(Suppl 1). Performed By: #### 2 132-9, 2884-2, 2284-04 #### [facility] CLIA [id number] [address] [place] [address] [place] Potassium [Moles/Vol] 4.8 mmol/L Normal 3.7-5.1 [facility] Comment on above: Order Comment: Anastacio bonilla Type: BLOOD SPECIMEN Ordering Facility: [facility] Address: [address] [place], [place] [address] Performed By: #### 2 132-9, 288-2, 2284-8 #### [facility] CLIA [id number] [address] [place], [place] [address] [place] Protein [Mass/Vol] 7.1 g/dL Normal 6.3-8.0 [facility] Comment on above: Order Comment: Speci men Type: BLOOD SPECIMEN Ordering Facility: [facility] Address: [address] [place] [address] Performed By: #### 2 132-9, 2885-2, 2283-8 #### [facility] CLIA [id number] [address] [place], [place] [address] [place] Sodium [Moles/Vol] 142 mmol/L Normal 136-144 [facility] Comment on above: Order Comment: Speci men Type: BLOOD SPECIMEN Ordering Facility: [facility] Address: [address] [place] [address] Performed By: #### 2 132-9, 288-2, 8 #### [facility] CLIA [id number] [address] [place] [address] [place] Urea nitrogen [Mass/Vol] 28 mg/dL High 7-21 [facility] Comment on above: Order Comment: Speci men Type: BLOOD SPECIMEN Ordering Facility: [facility] Address: [address] [place] [address] Performed By: #### 2 132-9, 288-2, 8 #### [facility] CLIA [id number] [address] [place], [place] [address] [place] IMMUNOFIXATION SCREEN, SERUM on 11-27-2024 INTERPRETATION (MPA) Atypical restricted bands are present in the IgM and kappa regions. Consistent with IgM kappa monoclonal gammopathy. Normal [facility] Comment on above: Order Comment: Speci men Type: BLOOD SPECIMEN Ordering Facility: [facility] Address: [address] [place] [address] Performed By: #### 2 132-9, 2885-2, 2283-8 #### [facility] CLIA [id number] [address] [place] [address] [place] MPA RESULT M protein is present. Abnormal No M protein is identified. [facility] Comment on above: Order Comment: Speci men Type: BLOOD SPECIMEN Ordering Facility: [facility] Address: [address] [place] [address] Performed By: #### 2 132-9, 2885-2, 2284-8 #### [facility] CLIA [id number] [address] [place] [address] [place] STAFF REVIEW (MPA) Reviewed by Rita Avery M.D., Ph.D Normal [facility] Comment on above: Order Comment: Speci men Type: BLOOD SPECIMEN Ordering Facility: [facility] Address: [address] [place] [address] Performed By: #### 2 132-9, 2885-2, 2283-8 #### [facility] CLIA [id number] [address] [place] [address] [place] IMMUNOGLOBULINS,IGG,IGA,IGMo n 11-27-2024 IgA [Mass/Vol] 250 mg/dL Normal 70-400 [facility] Comment on above: Order Comment: Speci men Type: BLOOD SPECIMEN Ordering Facility: [facility] Address: [address] [place] [address] Performed By: #### 2 132-9, 2885-2, 2283-8 #### [facility] CLIA [id number] [address] [place], [place] [address] [place] IgG [Mass/Vol] 728 mg/dL Normal 700-1600 [facility] Comment on above: Order Comment: Speci men Type: BLOOD SPECIMEN Ordering Facility: [facility] Address: [address] [place] [address] Performed By: #### 2 132-9, 2885-2, 228-8 #### [facility] CLIA [id number] [address] [place] [address] [place] IgM [Mass/Vol] 399 mg/dL High 40-230 [facility] Comment on above: Order Comment: Speci men Type: BLOOD SPECIMEN Ordering Facility: [facility] Address: [address] [place] [address] Performed By: #### 2 132-9, 2885-2, 2284-8 #### [facility] CLIA [id number] [address] [place] [address] [place] KAPPA/DIAZ,FREE,SERon 2024 Immunoglobulin light chains.kappa.free (S) [Mass/Vol] 64.4 mg/L High 3.3-19.4 [facility] Comment on above: Order Comment: Speci men Type: BLOOD SPECIMEN Ordering Facility: [facility] Address: [address] [place] [address] Result Comment: Rare ly, increased serum free light chains levels may not be detected or accurately quantified due to prozone phenomenon or in high viscosity samples using this immunoturbidimetric assay. Correlation with other laboratory results and clinical findings is recommended. The [place] Free Light Chain was performed using the Binding Site [employer] immunoturbidimetric method. Result obtained with different assay methods or kits cannot be used interchangeably. Performed By: #### L [id number] #### [facility] CLIA [id number] [address] [place] [address] [place] Immunoglobulin light chains.kappa/Immunoglo bulin light chains.lambda (S) [Mass ratio] 2.61 High 0.26-1.65 [facility] Comment on above: Order Comment: Speci men Type: BLOOD SPECIMEN Ordering Facility: [facility] Address: [address] [place] [address] Performed By: #### L [id number] #### [facility] CLIA [id number] [address] [place] [address] [place] Immunoglobulin light chains.lambda.free [Mass/Vol] 24.7 mg/L Normal 5.7-26.3 [facility] Comment on above: Order Comment: Anastacio bonilla Type: BLOOD SPECIMEN Ordering Facility: [facility] Address: [address] [place] [address] Result Comment: Rare ly, increased serum free [...] cannot be used interchangeably. Performed By: #### L [id number] #### [facility] CLIA [id number] [address] [place] [address] [place] LDH SerPl-cCncon 11-27-2024 LDH [Catalytic activity/Vol] 242 U/L High 135-214 [facility] Comment on above: Order Comment: Anastacio bonilla Type: BLOOD SPECIMEN Ordering Facility: [facility] Address: [address] [place] [address] Result Comment: Hemo lysis present. The origin of the hemolysis, in vitro versus an in vivo hemolytic process, cannot be distinguished via this assay alone. In vitro hemolysis may lead to non-physiological (spurious) elevation in lactate dehydrogenase (LDH) results. The result should be interpreted in context of the clinical setting and other test results. Suggest reorder as clinically indicated. Performed By: #### 2 132-9, 2885-2, 2283-8 #### [facility] CLIA [id number] [address] [place] [address] [place] PROTEIN ELECTROPHORESIS SERU M (P)on 11-27-2024 Albumin [Mass/Vol] 4.24 g/dL Normal 3.43-5.41 [facility] Comment on above: Order Comment: Anastacio bonilla Type: BLOOD SPECIMEN Ordering Facility: [facility] Address: [address] [place] [address] Performed By: #### 2 132-9, 2885-2, 2283-8 #### [facility] CLIA [id number] [address] [place], [place] [address] [place] Alpha 1 globulin Elph [Mass/Vol] 0.42 g/dL Normal 0.18-0.43 [facility] Comment on above: Order Comment: Speci men Type: BLOOD SPECIMEN Ordering Facility: [facility] Address: [address] [place] [address] Performed By: #### 2 132-9, 2885-2, 2283-8 #### [facility] CLIA [id number] [address] [place] [address] [place] Alpha 2 globulin Elph [Mass/Vol] 1.00 g/dL High 0.42-0.98 [facility] Comment on above: Order Comment: Speci men Type: BLOOD SPECIMEN Ordering Facility: [facility] Address: [address] [place] [address] Performed By: #### 2 132-9, 288-2, 8 #### [facility] CLIA [id number] [address] [place] [address] [place] Beta globulin Elph [Mass/Vol] 1.28 g/dL High 0.61-1.17 [facility] Comment on above: Order Comment: Speci men Type: BLOOD SPECIMEN Ordering Facility: [facility] Address: [address] [place] [address] Performed By: #### 2 132-9, 2885-2, 8 #### [facility] CLIA [id number] [address] [place], [place] [address] [place] Gamma globulin Elph [Mass/Vol] 0.55 g/dL Normal 0.53-1.51 [facility] Comment on above: Order Comment: Speci men Type: BLOOD SPECIMEN Ordering Facility: [facility] Address: [address] [place], [place] [address] Performed By: #### 2 132-9, 2885-2, 2283-8 #### [facility] CLIA [id number] [address] [place] [address] [place] INTERPRETATION COMMENT FOR PROTEIN ELECTROPHORESIS See separate immunofixation report for characterization of monoclonal gammopathy. Normal [facility] Comment on above: Order Comment: Anastacio bonilla Type: BLOOD SPECIMEN Ordering Facility: [facility] Address: [address] [place] [address] Performed By: #### 2 132-9, 2885-2, 2284-8 #### [facility] CLIA [id number] [address] [place] [address] [place] M-PROTEIN LOCATION Beta Fraction 1 Normal C [facility] Comment on above: Order Comment: Anastacio bonilla Type: BLOOD SPECIMEN Ordering Facility: [facility] Address: [address] [place] [address] Performed By: #### 2 132-9, 2885-2, 2284-8 #### [facility] CLIA [id number] [address] [place] [address] [place] Protein Fractions [Interp] An M protein is identified on protein electrophoresis. Abnormal No definitive M protein is identified on protein electrophor esis. [facility] Comment on above: Order Comment: Anastacio bonilla Type: BLOOD SPECIMEN Ordering Facility: [facility] Address: [address] [place] [address] Performed By: #### 2 132-9, 2885-2, 2284-8 #### [facility] CLIA [id number] [address] [place] [address] [place] Protein.monoclonal Elph [Mass/Vol] 0.36 g/dL High <=0.00 [facility] Comment on above: Order Comment: Anastacio bonilla Type: BLOOD SPECIMEN Ordering Facility: [facility] Address: [address] [place] [address] Performed By: #### 2 132-9, 2885-2, 2284-8 #### [facility] CLIA [id number] [address] [place] [address] [place] SPE STAFF REVIEW Reviewed by Rita Avery M.D., Ph.D Normal [facility] Comment on above: Order Comment: Speci men Type: BLOOD SPECIMEN Ordering Facility: [facility] Address: [address] [place] [address] Performed By: #### 2 132-9, 2885-2, 2284-8 #### [facility] CLIA [id number] [address] [place] [address] [place] Phosphate SerPl-mCncon 11-27 Phosphate [Mass/Vol] 3.2 mg/dL Normal 2.7-4.8 [facility] Comment on above: Order Comment: Speci men Type: BLOOD SPECIMEN Ordering Facility: [facility] Address: [address] [place] [address] Performed By: #### 2 132-9, 2885-2, 2283-8 #### [facility] CLIA [id number] [address] [place] [address] [place] Prot SerPl-mCncon 11-27-2024 Protein [Mass/Vol] 7.5 g/dL Normal 6.3-8.0 [facility] Comment on above: Order Comment: Speci men Type: BLOOD SPECIMEN Ordering Facility: [facility] Address: [address] [place] [address] Performed By: #### 2 132-9, 2885-2, 2284-8 #### [facility] CLIA [id number] [address] [place] [address] [place] Urate SerPl-mCncon Urate [Mass/Vol] 7.5 mg/dL High 2.5-6.6 [facility] Comment on above: Order Comment: Speci men Type: BLOOD SPECIMEN Ordering Facility: [facility] Address: [address] [place] [address] Performed By: #### L [id number] #### [facility] CLIA [id number] [address] [place] [address] [place] B2 Microglob SerPl-mCncon Cpci-2-Lldgfpysduyrw [Mass/Vol] 5.0 ug/mL High <3.1 [facility] Comment on above: Order Comment: Speci men Type: BLOOD SPECIMEN Ordering Facility: [facility] Address: [address] [place] [address] Result Comment: Beta -2 Microglobulin test is performed using the [employer] immunoturbidimetric method. Results obtained with different methods or kits cannot be used interchangeably. Performed By: #### 2 885-2, 1952-1 #### [facility] CLIA [id number] [address] [place] [address] [place] CBC W Auto Differential pane l (Bld)on 10-19-2024 Basophils (Bld) [#/Vol] 10*3/uL Normal <0.11 [facility] Comment on above: Order Comment: Speci men Type: BLOOD SPECIMEN Ordering Facility: [facility] Address: [address] [place] [address] Performed By: #### L [id number] #### [facility] CLIA [id number] [address] [place] [address] [place] Basophils/100 WBC (Bld) 0.2 % Normal [facility] Comment on above: Order Comment: Speci men Type: BLOOD SPECIMEN Ordering Facility: [facility] Address: [address] [place] [address] Performed By: #### L [id number] #### [facility] CLIA [id number] [address] [place] [address] [place] Differential cell count method Nom (Bld) Auto Normal [facility] Comment on above: Order Comment: Speci men Type: BLOOD SPECIMEN Ordering Facility: [facility] Address: [address] [place] [address] Performed By: #### L [id number] #### [facility] CLIA [id number] [address] [place] [address] [place] Eosinophils (Bld) [#/Vol] 0.14 10*3/uL Normal <0.46 [facility] Comment on above: Order Comment: Speci men Type: BLOOD SPECIMEN Ordering Facility: [facility] Address: [address] [place] [address] Performed By: #### L [id number] #### [facility] CLIA [id number] [address] [place] [address] [place] Eosinophils/100 WBC (Bld) 1.4 % Normal [facility] Comment on above: Order Comment: Speci men Type: BLOOD SPECIMEN Ordering Facility: [facility] Address: [address] [place] [address] Performed By: #### L [id number] #### [facility] CLIA [id number] [address] [place] [address] [place] Erythrocyte distribution width (RBC) [Ratio] 12.7 % Normal 11.5-15.0 [facility] Comment on above: Order Comment: Speci men Type: BLOOD SPECIMEN Ordering Facility: [facility] Address: [address] [place] [address] Performed By: #### L [id number] #### [facility] CLIA [id number] [address] [place] [address] [place] Hematocrit (Bld) [Volume fraction] 38.7 % Normal 36.0-46.0 [facility] Comment on above: Order Comment: Speci men Type: BLOOD SPECIMEN Ordering Facility: [facility] Address: [address] [place] [address] Performed By: #### L [id number] #### [facility] CLIA [id number] [address] [place] [address] [place] Hemoglobin (Bld) [Mass/Vol] 12.4 g/dL Normal 11.5-15.5 [facility] Comment on above: Order Comment: Speci men Type: BLOOD SPECIMEN Ordering Facility: [facility] Address: [address] [place] [address] Performed By: #### L [id number] #### [facility] CLIA [id number] [address] [place] [address] [place] Immature granulocytes (Bld) [#/Vol] 0.07 10*3/uL Normal <0.10 [facility] Comment on above: Order Comment: Speci men Type: BLOOD SPECIMEN Ordering Facility: [facility] Address: [address] [place] [address] Performed By: #### L [id number] #### [facility] CLIA [id number] [address] [place] [address] [place] Immature granulocytes/100 WBC (Bld) 0.7 % Normal [facility] Comment on above: Order Comment: Speci men Type: BLOOD SPECIMEN [facility] [facility] Address: [address] [place] [address] Performed By: #### L [id number] #### [facility] CLIA [id number] [address] [place] [address] [place] Lymphocytes (Bld) [#/Vol] 1.28 10*3/uL Normal 1.00-4.00 [facility] Comment on above: Order Comment: Speci men Type: BLOOD SPECIMEN Ordering Facility: [facility] Address: [address] [place] [address] Performed By: #### L [id number] #### [facility] CLIA [id number] [address] [place] [address] [place] Lymphocytes/100 WBC (Bld) 12.5 % Normal [facility] Comment on above: Order Comment: Speci men Type: BLOOD SPECIMEN Ordering Facility: [facility] Address: [address] [place] [address] Performed By: #### L [id number] #### [facility] CLIA [id number] [address] [place] [address] [place] MCH (RBC) [Entitic mass] 30.1 pg Normal 26.0-34.0 [facility] Comment on above: Order Comment: Speci men Type: BLOOD SPECIMEN Ordering Facility: [facility] Address: [address] [place] [address] Performed By: #### L [id number] #### [facility] CLIA [id number] [address] [place] [address] [place] MCHC (RBC) [Mass/Vol] 32.0 g/dL Normal 30.5-36.0 [facility] Comment on above: Order Comment: Speci men Type: BLOOD SPECIMEN Ordering Facility: [facility] Address: [address] [place] [address] Performed By: #### L [id number] #### [facility] CLIA [id number] [address] [place] [address] [place] MCV (RBC) [Entitic vol] 93.9 fL Normal 80.0-100.0 [facility] Comment on above: Order Comment: Speci men Type: BLOOD SPECIMEN Ordering Facility: [facility] Address: [address] [place] [address] Performed By: #### L [id number] #### [facility] CLIA [id number] [address] [place] [address] [place] Monocytes (Bld) [#/Vol] 0.87 10*3/uL High <0.87 [facility] Comment on above: Order Comment: Speci men Type: BLOOD SPECIMEN Ordering Facility: [facility] Address: [address] [place] [address] Performed By: #### L [id number] #### [facility] CLIA [id number] [address] [place] [address] [place] Monocytes/100 WBC (Bld) 8.5 % Normal [facility] Comment on above: Order Comment: Speci men Type: BLOOD SPECIMEN Ordering Facility: [facility] Address: [address] [place] [address] Performed By: #### L [id number] #### [facility] CLIA [id number] [address] [place] [address] [place] Neutrophils (Bld) [#/Vol] 7.83 10*3/uL High 1.45-7.50 [facility] Comment on above: Order Comment: Speci men Type: BLOOD SPECIMEN Ordering Facility: [facility] Address: [address] [place] [address] Performed By: #### L [id number] #### [facility] CLIA [id number] [address] [place] [address] [place] Neutrophils/100 WBC (Bld) 76.7 % Normal [facility] Comment on above: Order Comment: Speci men Type: BLOOD SPECIMEN Ordering Facility: [facility] Address: [address] [place] [address] Performed By: #### L [id number] #### [facility] CLIA [id number] [address] [place] [address] [place] Nucleated RBC (Bld) [#/Vol] 10*3/uL Normal <0.01 [facility] Comment on above: Order Comment: Speci men Type: BLOOD SPECIMEN Ordering Facility: [facility] Address: [address] [place] [address] Performed By: #### L [id number] #### [facility] CLIA [id number] [address] [place] [address] [place] Nucleated RBC/100 WBC (Bld) [Ratio] 0.0 /100 WBC Normal [facility] Comment on above: Order Comment: Speci men Type: BLOOD SPECIMEN Ordering Facility: [facility] Address: [address] [place] [address] Performed By: #### L [id number] #### [facility] CLIA [id number] [address] [place] [address] [place] Platelet mean volume (Bld) [Entitic vol] 10.0 fL Normal 9.0-12.7 [facility] Comment on above: Order Comment: Speci men Type: BLOOD SPECIMEN Ordering Facility: [facility] Address: [address] [place] [address] Performed By: #### L [id number] #### [facility] CLIA [id number] [address] [place] [address] [place] Platelets (Bld) [#/Vol] 271 10*3/uL Normal 150-400 [facility] Comment on above: Order Comment: Speci men Type: BLOOD SPECIMEN Ordering Facility: [facility] Address: [address] [place] [address] Performed By: #### L [id number] #### [facility] CLIA [id number] [address] [place] [address] [place] RBC (Bld) [#/Vol] 4.12 10*6/uL Normal 3.90-5.20 [facility] Comment on above: Order Comment: Speci men Type: BLOOD SPECIMEN Ordering Facility: [facility] Address: [address] [place] [address] Performed By: #### L [id number] #### [facility] CLIA [id number] [address] [place] [address] [place] WBC (Bld) [#/Vol] 10.21 10*3/uL Normal 3.70-11.00 [facility] Comment on above: Order Comment: Speci men Type: BLOOD SPECIMEN Ordering Facility: [facility] Address: [address] [place] [address] Performed By: #### L [id number] #### [facility] CLIA [id number] [address] [place] [address] [place] CNOVSPon 10-19-2024 CNOVSP Visit (SP) Office ([place]) ----- ANDREW BARROS ([id number]) 1945 F Date Time Provider Department 10/19/24 11:00 AM SANDEEP LENZ During your visit today, we recorded the following information about you: Temperature Pulse Respiration Blood pressure 97.4 degrees 71/minute 16/minute 152/75 Weight Height 68.6 kg 1.602 m Sandeep Lenz MD 10/19/2024 7:32 PM Signed NAME: Andrew Barros CLINIC NO.: [id number] DATE OF SERVICE: October 19, 2024 (Eduardo) Some elements in this clinic note that are critical to medical decision making have been carefully reviewed and included from a prior clinic note dated: July 22, 2024 (Eduardo) Referring Provider: Eduardo Sharpe Additional Clinicians involved in Andrew Barros's care: DIAGNOSIS: History of Breast Cancer ASSESSMENT: 79 year old woman with Left breast upper outer quadrant, invasive ductal carcinoma, ER postive, [place] positive, 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 CBC remains stable. Calcium remains WNL. Will repeat labs in 3 months and then as long as everything remains stable, will resume either q6m or annual follow-up. PLAN: Triage to call with today's lab results RTC in November 2024 as scheduled Labs same day Exam same day __ HPI: CASE HISTORY: Reverse Chronological Order 08/31/2024 - Bilateral Screening Mammogram: No significant suspicious finding. Scattered benign-appearing calcifications are present. 07/17/2024 - CBC: 12.3 > 13.0 / 39.9 < 306, eGFR: 26, Creatinine: 1.71 [place]: 61.0, Lambda: 23.4, K/L Ratio: 2.61 IgA: 180, Ig, IgM: 382 M-protein concentration: 0.4 05/26/2024 - EGD: Dr. Amanda Contreras at [facility] A. Polyp, stomach, biopsy: - Hyperplastic polyp B. Stomach, biopsy: - Reactive/chemical gastropathy with hyperplastic changes - H. Pylori immunostain is negative for H. Pylori organisms 04/16/2024 - A. Kidney, Left, Biopsy: - Focal global glomerulosclerosis, mild. See comment. - Tubular atrophy and interstitial fibrosis, mild. - Arteriosclerosis, moderate, and arteriolosclerosis, moderate to severe. Comment: Immunofluorescence is essentially negative, providing evidence against active [...] be contributing to the patient's renal presentation. 03/20/2024 - PET/CT: PET negative for lytic lesions. Notes distal gastric uptake. 02/24/2024 - CBC: 9.73 > 13.6 / 42.2 < 285, eGFR: 31, Creatinine: 1.67 [place]: 54.7, Lambda: 23.7, K/L Ratio: 2.31 IgA: 302, Ig, IgM: 426 M-protein concentration: 0.53 08/28/2023 - Bilateral Mammogram Diagnostic category 2 Benign 05/02/2023 - Bone Scan: Negative for osseous mets. 11/14/2021 - Had intracranial hemorrhage with intracerebral hematoma in the right tempora lobe due to HTN and warfarin. 04/24/2021 - DEXA scan World Health Organization classification: Normal-low fracture risk. 01/04/2021 - [facility]ammograms at [facility] Bi-Rads 2 benign. 09/26/2018-11/25/2023 - Arimidex 09/10/2018 - Completed radiation 06/05/2018 - L breast lumpectomy and SNB Updated Visit, October 19, 2024: Andrew returns with her son, Frantz. Results of today's labs are pending. 08/2024's screening mammogram revealed no significant suspicious findings, there are benign-appearing calcifications present. Updated Visit, July 22, 2024: Andrew returns with Janki to review recent labs. M-spike and IgG are stable overall from my perspective - no indications for a BMBx at this time. Kidney and stomach biopsies were negative for malignancy. Updated Visit, March 24, 2024: Virtual Visit Andrew presents for a virtual visit. She is joined by Sugey and her granddaughter, Shasta. 24 hour urine was positive for M-protein and showed her serum M-protein is stable at 0.53. Uric acid is also elevated at 9.7. She had gout about 1 yea (more content not included)... Normal [facility] Calcium.ionized [Moles/Vol]o n 10-19-2024 Calcium.ionized (Bld) [Mass/Vol] 1.30 mmol/L Normal 1.08-1.30 [facility] Comment on above: Order Comment: Speci men Type: BLOOD SPECIMEN Ordering Facility: [facility] Address: [address] [place] [address] Performed By: #### L [id number] #### [facility] CLIA [id number] [address] [place] [address] [place] [address] [place] Calcium.ionized adjusted to pH 7.4 (Bld) [Moles/Vol] 1.27 mmol/L Normal 1.08-1.30 [facility] Comment on above: Order Comment: Speci men Type: BLOOD SPECIMEN Ordering Facility: [facility] Address: [address] [place] [address] Performed By: #### L [id number] #### [facility] CLIA [id number] [address] [place] [address] [place] Comprehensive metabolic 2000 panelon 10-19-2024 Albumin [Mass/Vol] 4.2 g/dL Normal 3.9-4.9 [facility] Comment on above: Order Comment: Speci men Type: BLOOD SPECIMEN Ordering Facility: [facility] Address: [address] [place] [address] Performed By: #### 2 885-2, 1952-09 #### [facility] CLIA [id number] [address] [place] [address] [place] ALP [Catalytic activity/Vol] 103 U/L Normal 34-123 [facility] Comment on above: Order Comment: Speci men Type: BLOOD SPECIMEN Ordering Facility: [facility] Address: [address] [place] [address] Performed By: #### 2 885-2, 1952-09 #### [facility] CLIA [id number] [address] [place] [address] [place] ALT [Catalytic activity/Vol] 11 U/L Normal 7-38 [facility] Comment on above: Order Comment: Speci men Type: BLOOD SPECIMEN Ordering Facility: [facility] Address: [address] [place] [address] Performed By: #### 2 885-2, 1952-09 #### [facility] CLIA [id number] [address] [place] [address] [place] Anion gap [Moles/Vol] 12 mmol/L Normal 8-15 [facility] Comment on above: Order Comment: Speci men Type: BLOOD SPECIMEN Ordering Facility: [facility] Address: [address] [place] [address] Performed By: #### 2 885-2, 1952-09 #### [facility] CLIA [id number] [address] [place] [address] [place] AST [Catalytic activity/Vol] 10 U/L Low 13-35 [facility] Comment on above: Order Comment: Speci men Type: BLOOD SPECIMEN Ordering Facility: [facility] Address: [address] [place] [address] Performed By: #### 2 885-, 1952-09 #### [facility] CLIA [id number] [address] [place] [address] [place] Bilirubin [Mass/Vol] 0.4 mg/dL Normal 0.2-1.3 [facility] Comment on above: Order Comment: Speci men Type: BLOOD SPECIMEN Ordering Facility: [facility] Address: [address] [place] [address] Performed By: #### 2 885-, 1952-09 #### [facility] CLIA [id number] [address] [place] [address] [place] Calcium [Mass/Vol] 10.2 mg/dL Normal 8.5-10.2 [facility] Comment on above: Order Comment: Speci men Type: BLOOD SPECIMEN Ordering Facility: [facility] Address: [address] [place] [address] Performed By: #### 2 885-, 1952-09 #### [facility] CLIA [id number] [address] [place] [address] [place] Chloride [Moles/Vol] 99 mmol/L Normal 98-107 [facility] Comment on above: Order Comment: Speci men Type: BLOOD SPECIMEN Ordering Facility: [facility] Address: [address] [place] [address] Performed By: #### 2 885-2, 1952-09 #### [facility] CLIA [id number] [address] [place] [address] [place] CO2 [Moles/Vol] 27 mmol/L Normal 22-30 [facility] Comment on above: Order Comment: Speci men Type: BLOOD SPECIMEN Ordering Facility: [facility] Address: [address] [place] [address] Performed By: #### 2 885-, 1952-09 #### [facility] CLIA [id number] [address] [place] [address] [place] Creatinine [Mass/Vol] 1.80 mg/dL High 0.58-0.96 [facility] Comment on above: Order Comment: Speci men Type: BLOOD SPECIMEN Ordering Facility: [facility] Address: [address] [place] [address] Performed By: #### 2 885-, 1952-09 #### [facility] IA [id number] [address] [place] [address] [place] Creatinine and Glomerular filtration rate.predicted panel (S/P/Bld) 28 mL/min/1.73m??? Low >=60 [facility] Comment on above: Order Comment: Speci men Type: BLOOD SPECIMEN Ordering Facility: [facility] Address: [address] [place] [address] Result Comment: Sugar mated Glomerular Filtration Rate [...] reflect actual GFR. Performed By: #### 2 885-2, 1952-09 #### [facility] CLIA [id number] [address] [place] [address] [place] Glucose [Mass/Vol] 153 mg/dL High 74-99 [facility] Comment on above: Order Comment: Speci men Type: BLOOD SPECIMEN Ordering Facility: [facility] Address: [address] [place] [address] Result Comment: The [place] Diabetes Association (ADA) provides guidance for cutoff [...] Standards of Medical Care in Diabetes 2016, [place] [employer]. Diabetes Care. 2016.39(Suppl 1). Performed By: #### 2 881951-09 #### [facility] CLIA [id number] [address] [place] [address] [place] Potassium [Moles/Vol] 4.1 mmol/L Normal 3.7-5.1 [facility] Comment on above: Order Comment: Sosai men Type: BLOOD SPECIMEN Ordering Facility: [facility] Address: [address] [place] [address] Performed By: #### 2 881951-09 #### [facility] CLIA [id number] [address] [place] [address] [place] Protein [Mass/Vol] 7.4 g/dL Normal 6.3-8.0 [facility] Comment on above: Order Comment: Speci men Type: BLOOD SPECIMEN Ordering Facility: [facility] Address: [address] [place] [address] Performed By: #### 2 881951-09 #### [facility] CLIA [id number] [address] [place] [address] [place] Sodium [Moles/Vol] 138 mmol/L Normal 136-144 [facility] Comment on above: Order Comment: Speci men Type: BLOOD SPECIMEN Ordering Facility: [facility] Address: [address] [place] [address] Performed By: #### 2 885-2, 1952-09 #### [facility] CLIA [id number] [address] [place] [address] [place] Urea nitrogen [Mass/Vol] 37 mg/dL High 7-21 [facility] Comment on above: Order Comment: Speci men Type: BLOOD SPECIMEN Ordering Facility: [facility] Address: [address] [place] [address] Performed By: #### 2 885-2, 1952-09 #### [facility] CLIA [id number] [address] [place] [address] [place] IMMUNOFIXATION SCREEN, SERUM on 10-19-2024 INTERPRETATION (MPA) Atypical restricted bands are present in the IgM and kappa regions. Consistent with IgM kappa monoclonal gammopathy. Normal [facility] Comment on above: Order Comment: Speci men Type: BLOOD SPECIMEN Ordering Facility: [facility] Address: [address] [place] [address] Performed By: #### 2 132-9, 2885-2, 2284-8 #### [facility] CLIA [id number] [address] [place] [address] [place] MPA RESULT M protein is present. Abnormal No M protein is identified. [facility] Comment on above: Order Comment: Speci men Type: BLOOD SPECIMEN Ordering Facility: [facility] Address: [address] [place] [address] Performed By: #### 2 132-9, 2885-2, 2284-8 #### [facility] CLIA [id number] [address] [place] [address] [place] STAFF REVIEW (MPA) Reviewed by Christiano Valdez MD, Ph.D ([id number]) Normal [facility] Comment on above: Order Comment: Speci men Type: BLOOD SPECIMEN Ordering Facility: [facility] Address: [address] [place] [address] Performed By: #### 2 132-9, 2885-2, 228-8 #### [facility] CLIA [id number] [address] [place] [address] [place] IMMUNOGLOBULINS,IGG,IGA,IGMo n 10-19-2024 IgA [Mass/Vol] 195 mg/dL Normal 70-400 [facility] Comment on above: Order Comment: Speci men Type: BLOOD SPECIMEN Ordering Facility: [facility] Address: [address] [place] [address] Performed By: #### 2 132-9, 2885-2, 8 #### [facility] CLIA [id number] [address] [place] [address] [place] IgG [Mass/Vol] 684 mg/dL Low 700-1600 [facility] Comment on above: Order Comment: Speci men Type: BLOOD SPECIMEN Ordering Facility: [facility] Address: [address] [place] [address] Performed By: #### 2 132-9, 2885-2, 8 #### [facility] CLIA [id number] [address] [place] [address] [place] IgM [Mass/Vol] 371 mg/dL High 40-230 [facility] Comment on above: Order Comment: Speci men Type: BLOOD SPECIMEN Ordering Facility: [facility] Address: [address] [place] [address] Performed By: #### 2 132-9, 2885-2, 8 #### [facility] CLIA [id number] [address] [place] [address] [place] KAPPA/DIAZ,FREE,SERon 2024 Immunoglobulin light chains.kappa.free (S) [Mass/Vol] 44.2 mg/L High 3.3-19.4 [facility] Comment on above: Order Comment: Speci men Type: BLOOD SPECIMEN Ordering Facility: [facility] Address: [address] [place] [address] Result Comment: Rare ly, increased serum free light chains levels may not be detected or accurately quantified due to prozone phenomenon or in high viscosity samples using this immunoturbidimetric assay. Correlation with other laboratory results and clinical findings is recommended. The [place] Free Light Chain was performed using the Binding Site Optilite immunoturbidimetric method. Result obtained with different assay methods or kits cannot be used interchangeably. Performed By: #### L [id number] #### [facility] CLIA [id number] [address] [place] [address] [place] Immunoglobulin light chains.kappa/Immunoglo bulin light chains.lambda (S) [Mass ratio] 2.08 High 0.26-1.65 [facility] Comment on above: Order Comment: Speci men Type: BLOOD SPECIMEN Ordering Facility: [facility] Address: [address] [place] [address] Performed By: #### L [id number] #### [facility] CLIA [id number] [address] [place] [address] [place] Immunoglobulin light chains.lambda.free [Mass/Vol] 21.2 mg/L Normal 5.7-26.3 [facility] Comment on above: Order Comment: Speci men Type: BLOOD SPECIMEN Ordering Facility: [facility] Address: [address] [place] [address] Result Comment: Rare ly, increased serum free [...] cannot be used interchangeably. Performed By: #### L [id number] #### [facility] CLIA [id number] [address] [place] [address] [place] LDH SerPl-cCncon 01-27-2025 LDH [Catalytic activity/Vol] 190 U/L Normal 135-214 [facility] Comment on above: Order Comment: Speci men Type: BLOOD SPECIMEN Ordering Facility: [facility] Address: [address] [place] [address] Performed By: #### 2 885-2, 195- #### [facility] CLIA [id number] [address] [place] [address] [place] PROTEIN ELECTROPHORESIS SERU M (P)on 10-19-2024 Albumin [Mass/Vol] 3.70 g/dL Normal 3.43-5.41 [facility] Comment on above: Order Comment: Speci men Type: BLOOD SPECIMEN Ordering Facility: [facility] Address: [address] [place] [address] Performed By: #### 2 132-9, 2885-2, 2283-8 #### [facility] CLIA [id number] [address] [place] [address] [place] Alpha 1 globulin Elph [Mass/Vol] 0.48 g/dL High 0.18-0.43 [facility] Comment on above: Order Comment: Speci men Type: BLOOD SPECIMEN Ordering Facility: [facility] Address: [address] [place] [address] Performed By: #### 2 132-9, 2885-2, 2283-8 #### [facility] CLIA [id number] [address] [place] [address] [place] Alpha 2 globulin Elph [Mass/Vol] 1.12 g/dL High 0.42-0.98 [facility] Comment on above: Order Comment: Speci men Type: BLOOD SPECIMEN Ordering Facility: [facility] Address: [address] [place] [address] Performed By: #### 2 132-9, 2885-2, 2283-8 #### [facility] CLIA [id number] [address] [place] [address] [place] Beta globulin Elph [Mass/Vol] 1.18 g/dL High 0.61-1.17 [facility] Comment on above: Order Comment: Speci men Type: BLOOD SPECIMEN Ordering Facility: [facility] Address: [address] [place] [address] Performed By: #### 2 132-9, 2885-2, 8 #### [facility] CLIA [id number] [address] [place] [address] [place] Gamma globulin Elph [Mass/Vol] 0.51 g/dL Low 0.53-1.51 [facility] Comment on above: Order Comment: Speci men Type: BLOOD SPECIMEN Ordering Facility: [facility] Address: [address] [place] [address] Performed By: #### 2 132-9, 2885-2, 8 #### [facility] CLIA [id number] [address] [place] [address] [place] INTERPRETATION COMMENT FOR PROTEIN ELECTROPHORESIS See separate immunofixation report for characterization of monoclonal gammopathy. Normal [facility] Comment on above: Order Comment: Speci men Type: BLOOD SPECIMEN Ordering Facility: [facility] Address: [address] [place] [address] Performed By: #### 2 132-9, 2885-2, 8 #### [facility] CLIA [id number] [address] [place] [address] [place] M SPIKE CONCENTRATION 2 0.13 g/dL High <=0.00 [facility] Comment on above: Order Comment: Speci men Type: BLOOD SPECIMEN Ordering Facility: [facility] Address: [address] [place] [address] Performed By: #### 2 132-9, 2885-2, 8 #### [facility] CLIA [id number] [address] [place], [place] [id number] [place] M-PROTEIN LOCATION Beta Fraction 1 Normal C [facility] Comment on above: Order Comment: Speci men Type: BLOOD SPECIMEN Ordering Facility: [facility] Address: [address] [place] [address] Performed By: #### 2 132-9, 2885-2, 2283-8 #### [facility] CLIA [id number] [address] [place] [address] [place] M-PROTEIN LOCATION 2 Gamma Fraction 1 Normal [facility] Comment on above: Order Comment: Speci men Type: BLOOD SPECIMEN Ordering Facility: [facility] Address: [address] [place] [address] Performed By: #### 2 132-9, 2885-2, 2283-8 #### [facility] CLIA [id number] [address] [place] [address] [place] Protein Fractions [Interp] An M protein is identified on protein electrophoresis. Abnormal No definitive M protein is identified on protein electrophor esis. [facility] Comment on above: Order Comment: Speci men Type: BLOOD SPECIMEN Ordering Facility: [facility] Address: [address] [place] [address] Performed By: #### 2 132-9, 288-2, 8 #### [facility] CLIA [id number] [address] [place] [address] [place] Protein.monoclonal Elph [Mass/Vol] 0.36 g/dL High <=0.00 [facility] Comment on above: Order Comment: Speci men Type: BLOOD SPECIMEN Ordering Facility: [facility] Address: [address] [place], [place] [id number] Performed By: #### 2 132-9, 2885-2, 2283-8 #### [facility] CLIA [id number] [address] [place], [place] [address] [place] SPE STAFF REVIEW Reviewed by Christiano Valdez MD, Ph.D ([id number]) Normal [facility] Comment on above: Order Comment: Speci men Type: BLOOD SPECIMEN Ordering Facility: [facility] Address: [address] [place] [address] Performed By: #### 2 132-9, 2885-2, 2284-8 #### [facility] CLIA [id number] [address] [place] [address] [place] Phosphate SerPl-mCncon 10-19 Phosphate [Mass/Vol] 3.6 mg/dL Normal 2.7-4.8 [facility] Comment on above: Order Comment: Speci men Type: BLOOD SPECIMEN Ordering Facility: [facility] Address: [address] [place] [address] Performed By: #### L [id number] #### [facility] CLIA [id number] [address] [place] [address] [place] Prot SerPl-mCncon 10-19-2024 Protein [Mass/Vol] 7.0 g/dL Normal 6.3-8.0 [facility] Comment on above: Order Comment: Speci men Type: BLOOD SPECIMEN Ordering Facility: [facility] Address: [address] [place] [address] Performed By: #### 2 885-2, 1952-1 #### [facility] CLIA [id number] [address] [place] [address] [place] SERUM VISCOSITYon 10-19-2024 VISCOSITY, SERUM 1.24 cP Normal <=1.50 [facility] Comment on above: Order Comment: Speci men Type: BLOOD SPECIMEN Ordering Facility: [facility] Address: [address] [place] [address] Result Comment: INTE RPRETIVE INFORMATION: Viscosity, Serum Increased viscosity is associated with disorders such as monoclonal gammopathy, macroglobulinemia, and multiple myeloma. Significantly elevated viscosity (>3.0 cP) is associated with clinical symptoms of hyperviscosity syndrome. This test was developed and its performance characteristics determined by [facility]. It has not been cleared or approved by the US Food and Drug Administration. This test was performed in a CLIA certified laboratory and is intended for clinical purposes. Performed By: [facility] [address] [place] [address] Habitat Biologist: Mark Fernandez MD, PhD CLIA Number: [id number] Performed By: #### 2 132-9, 2885-2, 2284-8 #### [facility] CLIA [id number] [address] [place] [address] Urate SerPl-mCncon 5 Urate [Mass/Vol] 8.6 mg/dL High 2.5-6.6 [facility] Comment on above: Order Comment: Speci men Type: BLOOD SPECIMEN Ordering Facility: [facility] Address: [address] [place] [address] Performed By: #### L [id number] #### [facility] CLIA [id number] [address] [place] [address] OF [facility] Office Visiton 08-18-2024 Follow-up visit [id number] Wayne Barros 1945 F Date Provider Department Center 08/18/2024 166-[facility]EL [facility] Family History Problem Relation Age of Onset Coronary artery disease Mother Coronary artery disease Father Coronary artery disease Sister Coronary artery disease Brother Family Status - Relation Status Age at Mother Father Sister Brother Level of Service:24299 [place] OFFICE/OUTPATIENT ESTABLISHED LOW MDM 20 MIN Reason for Visit and Comments: Follow-up [747104] - 6 month follow up Normal [facility] CNOVSPon 07-22-2024 CNOVSP Visit (SP) Office (HEMASA) ----- ANDREW BARROS ([id number]) 1945 F Date Time Provider Department 07/22/24 9:20 AM SANDEEP LENZ During your visit today, we recorded the following information about you: Temperature Pulse Respiration Blood pressure 96.9 degrees 68/minute 16/minute 136/73 Weight Height 64.1 kg 1.602 m Sandeep Lenz MD 07/22/2024 12:48 PM Signed NAME: Andrew Barros CLINIC NO.: [id number] DATE OF SERVICE: July 22, 2024 (Eduardo) Some elements in this clinic note that are critical to medical decision making have been carefully reviewed and included from a prior clinic note dated: March 24, 2024 (Eduardo) Referring Provider: Eduardo Sharpe Additional Clinicians involved in Andrew Barros's care: DIAGNOSIS: History of Breast Cancer ASSESSMENT: 78 year old woman with Left breast upper outer quadrant, invasive ductal carcinoma, ER postive, FL positive, 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 CBC remains stable. Calcium remains WNL. Will repeat labs in 3 months and then as long as everything remains stable, will resume either q6m or annual follow-up. PLAN: Labs in 3 months RTC 1 week after RTC in November 2024 as scheduled - Repeat labs - Exam same day Repeat Mammogram prior to November visit __ HPI: CASE HISTORY: Reverse Chronological Order 07/17/2024 - CBC: 12.3 > 13.0 / 39.9 < 306, eGFR: 26, Creatinine: 1.71 [place]: 61.0, Lambda: 23.4, K/L Ratio: 2.61 IgA: 180, Ig, IgM: 382 M-protein concentration: 0.4 05/26/2024 - EGD: Dr. Amanda Contreras at [facility] A. Polyp, stomach, biopsy: - Hyperplastic polyp B. Stomach, biopsy: - Reactive/chemical gastropathy with hyperplastic changes - H. Pylori immunostain is negative for H. Pylori organisms 04/16/2024 - A. Kidney, Left, Biopsy: - Focal global glomerulosclerosis, mild. See comment. - Tubular atrophy and interstitial fibrosis, mild. - Arteriosclerosis, moderate, and arteriolosclerosis, moderate to severe. Comment: Immunofluorescence is essentially negative, providing evidence against active [...] be contributing to the patient's renal presentation. 03/20/2024 - PET/CT: PET negative for lytic lesions. Notes distal gastric uptake. 02/24/2024 - CBC: 9.73 > 13.6 / 42.2 < 285, eGFR: 31, Creatinine: 1.67 [place]: 54.7, Lambda: 23.7, K/L Ratio: 2.31 IgA: 302, Ig, IgM: 426 M-protein concentration: 0.53 08/28/2023 - Bilateral Mammogram Diagnostic category 2 Benign 05/02/2023 - Bone Scan: Negative for osseous mets. 11/14/2021 - Had intracranial hemorrhage with intracerebral hematoma in the right tempora lobe due to HTN and warfarin. 04/24/2021 - DEXA scan World Health Organization classification: Normal-low fracture risk. 01/04/2021 - [facility]ammograms at [facility] Bi-Rads 2 benign. 09/26/2018-11/25/2023 - Arimidex 09/10/2018 - Completed radiation 06/05/2018 - L breast lumpectomy and SNB Updated Visit, July 22, 2024: Andrew fleming with Janki to review recent labs. M-spike and IgG are stable overall from my perspective - no indications for a BMBx at this time. Kidney and stomach biopsies were negative for malignancy. Updated Visit, March 24, 2024: Virtual Visit [...] found to have an M-spike by her cash surrender calculator, Dr. Rojo. We discussed potential diagnoses and implications but will wait until adequate work up a (more content not included)... Normal [facility] Capillary blood glucose missy urement by glucometer (mass/volume)Ordered By: Amanda Contreras on 05-26-2024 Glucose [Mass/Vol] 114 mg/dL Normal [facility] Comment on above: Random Glucose Refer ence Range is dependent on time and content of last meal. Glucose of more than 200 mg/dL in a nonstressed, ambulatory subject supports the diagnosis of Diabetes Mellitus. Result Comment: Formerly named [facility] Glucose Reference Range is dependent on time and content of last meal. Glucose of more than 200 mg/dL in a nonstressed, ambulatory subject supports the diagnosis of Diabetes Mellitus. Performed By: #### G LULS #### Point of Care testing , Glucose Poct Glucometerson 0 05-26-2024 Commemt1 Glu2: Cleaned Meter Normal [facility] Comment on above: Result Comment: PERF ORMED BY: [facility] [address] [place] [address] PATHOLOGIST IP PARALEGAL ADRIAN ROBERTSON M.D. Performed By: #### G LULS #### Point of Care testing , Isaac 05-26-2024 L Specimen: [id number] Received: 05/26/24-1239 Status: DELMY Pineda Num: [id number] Spec Type: Surgical Subm Dr: Amanda Contreras DO Tissues: A Gastric Biopsy (GASTRIC POLYP) B GASTRIC FOR HP (GASTRIC BX R/O H PYLORI) Procedures: HE/9, Gross/Micro L4/2, H PYLORI Age/ Patient Sex Location Account Attending Physician Andrew Barros 78/F [id number] Amanda Contreras DO SPEC NUM: [id number] RECD: 05/26/24 STATUS: DELMY PINEDA NUM: [id number] JANETTE: 05/26/[address]: Amanda Contreras DO ENTERED: 05/26/[address] [facility] [address]: SPEC TYPE: Surgical DEPT: S ENTERED BY: [id number] RECV BY: [id number] ORDERED: HE/9, Gross/Micro L4/2, H PYLORI ORDERED: [...] is entirely submitted in cassette B1. Specimen: [id number] Received: 05/26/24 Status: DELMY Pineda Num: [id number] Spec Type: Surgical Subm Dr: Amanda Contreras DO Tissues: A Gastric Biopsy (GASTRIC POLYP) B GASTRIC FOR HP (GASTRIC BX R/O H PYLORI) Procedures: HE/9, Gross/Micro L4/2, H PYLORI Patient: Andrew Barros [id number] (Continued) Specimen: [id number] Received: 05/26/24 (Continued) Signed (signature on file) Zbigniew Hurst MD 06/04/24 1822 Specimen: [id number] Received: 05/26/24 Status: DELMY Pineda Num: [id number] Spec Type: Surgical Subm Dr: Amanda Contreras DO Tissues: A Gastric Biopsy (GASTRIC POLYP) B GASTRIC FOR HP (GASTRIC BX R/O H PYLORI) Procedures: Oksana RINCON/Micro L4/2, H PYLORI Patient: Andrew Barros [id number] (Continued) Specimen: [id number] Received: 05/26/24 (Continued) CPT Codes [id number] Specimen: [id number] Received: 05/26/24 Status: DELMY Pineda Num: [id number] Spec Type: Surgical Subm Dr: Amanda Contreras DO Tissues: A Gastric Biopsy (GASTRIC POLYP) B GASTRIC FOR HP (GASTRIC BX R/O H PYLORI) Procedures: HE/9, Gross/Micro L4/2, H PYLORI Patient: BarrosRosa gusmanence Lazara [id number] (Continued) Signed (signature on file) Zbigniew Hurst MD 06/04/24 1822 Normal [facility] No Panel InformationOrdered By: Amanda Contreras on 05-26-2024 Bedside Glucose Comment Glu2: cleaned meter [facility] CNPNon 04-02-2024 CNPN Telephone (IRRFV) ----- ANDREW BARROS ([id number]) 1945 F Date Time Provider Department 04/02/24 SANDEEP LENZ IRRFV During your visit today, we recorded the following information about you: Ashlie Mendez 04/02/2024 10:51 AM Signed RADIOLOGY CALL CENTER INTAKE DATE: 04/02/2024 TIME: 10:49am REQUESTING STAFF: Sandeep Lenz MD PHONE/PAGER: [phone] SPECIFICS OF THE REQUEST: Renal Biopsy SPECIAL REQUESTS: TISSUE SAMPLE, LABWORK: N/A IS THIS REQUEST PART OF A RESEARCH PROTOCOL: No MEDICAL DIAGNOSIS: MGUS (monoclonal gammopathy of unknown significance) TYPE AND DATE OF THE EXAM THAT IS THE BASIS OF THE REQUEST: PET 03/20/2024 IMAGING: [facility] Note to all persons requesting biopsies: All biopsy requests will be scheduled as quickly as possible, based on the clinical urgency, availability of appointment times, the need to hold anti-thrombolytic therapy (aspirin, blood thinners) and the patient?s schedule, including the need for an available ross carrier driver. If a percutaneous biopsy or drainage is not felt to be safe or an alternative method for establishing a diagnosis is possible, this will be discussed directly with the requesting physician. Karla Felix RN 04/03/2024 5:51 PM Addendum Random [place] [facility] Biopsy is Approved to be Done [...] medications for this visit. ALLERGIES Allergen Reactions Tpldnxe-Zyd-Vfj Red* Unknown Other reaction(s): AOF FILMS SENT TO WORKSTATION: GUIDELINES FOR HOLDING ANTI-PLATELET AND ANTI- COAGULATION THERAPY: Xarelto. This should be held 2 Doses prior to biopsy. NURSE SIGNATURE: Karla Alston RN DATE: April 02, 2024 TIME: 11:35 AM Lulu Mejia 04/06/2024 1:10 PM Signed Spoke to Pt and daughter. Scheduled 04/16 1100am. Pt order built in [employer] As of Date: 04/02/2024 Noted Allergy Reaction UVIJKLI-LKE-SOG REDUCTASE INHIBIT*01/21/2018 16 - Unknown Comments: Other [...] mg by mout (more content not included)... Normal [facility] PET+CT Whole body Bone W 18F [...] any questions regarding this interpretation, please call [phone]. If you are unable to reach us at the number above, please feel free to contact [facility] at [phone]. DIVISION OF RADIOLOGY * * *Final Report* [...] * Radiopharmaceutical Activity: 6.6 mCi * Radiopharmaceutical: N35-Inrffgcfarqbvyjcpy (FDG) * All reported standardized uptake values represent maximum SUV (SUVmax) per body weight, unless otherwise specified. COMPARISON: No previous FDG PET/CT available CORRELATION: No relevant imaging available RESULT: REFERENCES: SUV reference values: * Blood pool (descending aorta) activity: SUVmax 2.8 * Background liver activity: SUVmax 3.3 Cardiopulmonary Technician And Eeg Tech (topogram) images: No additional findings. Notes and [...] No abnormal uptake. DIVISION OF RADIOLOGY [facility] * * *Final Report* * [...] * Radiopharmaceutical Activity: 6.6 mCi * Radiopharmaceutical: N60-Djfmhwwdcxoerqcyjo (FDG) * All reported standardized uptake values represent maximum SUV (SUVmax) per body weight, unless otherwise specified. COMPARISON: No previous FDG PET/CT available CORRELATION: No relevant imaging available RESULT: REFERENCES: SUV reference values: * Blood pool (descending aorta) activity: SUVmax 2.8 * Background liver activity: SUVmax 3.3 Cardiopulmonary Technician And Eeg Tech (topogram) images: No additional findings. Notes and [...] any questions regarding this interpretation, please call [phone]. (more content not included)... [facility] PET+CT Whole body Bone W 18F -NaF IVOrdered By: Ccf Provider on 03-25-2024 [facility] GLUCOSE, BLOOD (POC)on 03-20 Glucose [Mass/Vol] 122 mg/dL Abnormal 74 - 99 mg/dL [facility] Comment on above: Location:[facility], [address] [place] [address] , [place], [place], [facility] The Accu-Chek Inform II glucose meter [...] Interpretation and review of laboratory results Abnormal [facility] PET+CT Whole body Bone W 18F -NaF Carmen 03-20-2024 Radiology Study observation (narrative) [facility] Calcium.ionized [Moles/Vol]o n 02-24-2024 Calcium.ionized (Bld) [Mass/Vol] 1.33 mmol/L High 1.08 - 1.30 mmol/L [facility] Calcium.ionized adjusted to pH 7.4 (Bld) [Moles/Vol] 1.31 mmol/L High 1.08 - 1.30 mmol/L [facility] Interpretation and review of laboratory results Abnormal [facility] LACTATE DEHYDROGENASEOrdered By: [place] Thomas on 02-24-2024 LDH [Catalytic activity/Vol] 209 U/L 135 - 214 U/L [facility] LDH [Catalytic activity/Vol] Ordered By: [place] Thomas on 02-24-2024 Interpretation and review of laboratory results Normal [facility] PHOSPHORUS INORGANICon 02-23 Phosphate [Mass/Vol] 2.7 mg/dL 2.7 - 4 .8 mg/dL [facility] Phosphate [Mass/Vol]on 02-23 Interpretation and review of laboratory results Normal [facility] URIC ACIDon 02-24-2024 Urate [Mass/Vol] 9.7 mg/dL High 2.5 - 6.6 mg/dL [facility] Urate [Mass/Vol]on Interpretation and review of laboratory results Abnormal [facility] Office Visiton 02-19-2024 Follow-up visit [id number] Wayne Barros 1945 F Date Provider Department Center 02/19/2024 GISSELL WANG KASHIF Marie Family History Problem Relation Age of Onset Coronary artery disease Mother Coronary artery disease Father Coronary artery disease Sister Coronary artery disease Brother Family Status - Relation Status Age at Mother Father Sister Brother Level of Service:16471 [place] OFFICE/OUTPATIENT ESTABLISHED MOD MDM 30 MIN Normal [facility] Albumin [Mass/volume] in Ser um or Plasmaon 02-03-2024 Albumin [Mass/Vol] 3.6 g/dL 2.9-4.4 [facility] Casts typing in urine sedime nt by light microscopyon 02-03-2024 Casts LM Nom (Urine sed) NONE SEEN #/LPF NONE SEEN [facility] Erythrocyte distribution wid th Auto (RBC) [Ratio]on 02-03-2024 Erythrocyte distribution width (RBC) [Ratio] 12.8 % 11.0-15.0 [facility] Estimated glomerular filtrat ion rate (GFR) non- Americanon 02-03-2024 GFR/1.73 sq M.predicted among non-blacks MDRD (S/P/Bld) [Vol rate/Area] 30 mL/min/{1.73_m2} >=60 [facility] Hematocrit Auto (Bld) [Volum e fraction]on 02-03-2024 Hematocrit (Bld) [Volume fraction] 40.7 % 36.0-48.0 [facility] Hemoglobin [Mass/volume] in Bloodon 02-03-2024 Hemoglobin (Bld) [Mass/Vol] 13.4 g/dL 12.0-16.0 [facility] IgA [Mass/volume] in Serum o r Plasmaon 02-03-2024 IgA [Mass/Vol] 286 mg/dL 64-422 [facility] IgG [Mass/volume] in Serum o r Plasmaon 02-03-2024 IgG [Mass/Vol] 815 mg/dL [phone] [facility] IgM [Mass/volume] in Serum o r Plasmaon 02-03-2024 IgM [Mass/Vol] 425 mg/dL 26-217 [facility] Immunofixation for Urineon 0 02-03-2024 Interpretation Immunofixation (U) [Interp] Comment: . [facility] Comment on above: Presence of monoclon al protein is unclear at this time. Suggestrepeat in 3 to 6 months if clinically indicated.Performed at: [facility] [employer] [address] [id number] Director: Yrn Maher PhD, Phone: [employer] Immunoglobulin light chains. kappa.free [Mass/volume] in Serumon 02-03-2024 Immunoglobulin light chains.kappa.free (S) [Mass/Vol] 49.6 mg/L 3.3-19.4 [facility] Immunoglobulin light chains. kappa.free/Immunoglobulin light chains.lambda.free [Saji 02-03-2024 Immunoglobulin light chains.kappa.free/Immu noglobulin light chains.lambda.free (S) [Mass ratio] 2.07 0.26-1.65 [facility] Comment on above: Performed at: [facility] [address] [id number] Director: Yrn Maher PhD, Phone: [phone] Immunoglobulin light chains. lambda.free [Mass/volume] in Serum or Plasmaon 02-03-2024 Immunoglobulin light chains.lambda.free [Mass/Vol] 24.0 mg/L 5.7-26.3 [facility] Iron binding capacity [Mass/ volume] in Serum or Plasmaon 02-03-2024 Iron binding capacity [Mass/Vol] 269.0 ug/dL 250.0-450.0 [facility] Iron saturation [Mass Fracti on] in Serum or Plasmaon 02-03-2024 Iron saturation [Mass fraction] 28.3 % [facility] Laboratory - Chemistry and C hemistry - challengeon 02-03-2024 Bilirubin Ql (U) Negative NEGATIVE [facility] Glucose (U) [Mass/Vol] Negative NEGATIVE [facility] Ql (U) Negative NEGATIVE [facility] pH (U) 6.0 [pH] 5.0-9.0 [facility] Specific gravity (U) [Rel density] 1.025 1.005-1.025 [facility] Urobilinogen Qn (U) 0.2 {Sánchez'U}/dL 0.2-1.0 [facility] Albumin [Mass/Vol] 3.5 g/dL 3.4-5.0 [facility] Calcium [Mass/Vol] 10.3 mg/dL 8.5-10.1 [facility] Chloride [Moles/Vol] 99 mmol/L 98-107 [facility] CO2 [Moles/Vol] 28.3 mmol/L 21.0-32.0 [facility] Cobalamin (Vitamin B12) [Mass/Vol] 376.0 pg/mL 193.0-986.0 [facility] Creatinine [Mass/Vol] 1.64 mg/dL 0.55-1.[address] [facility] Ferritin [Mass/Vol] 102.0 ng/mL 8.0-252.0 [facility] GFR/1.73 sq M.predicted MDRD (S/P/Bld) [Vol rate/Area] 37 mL/min/{1.73_m2} >=60 [facility] Glucose [Mass/Vol] 152 mg/dL 74-106 [facility] Iron [Mass/Vol] 76.0 ug/dL 50.0-170.0 [facility] Magnesium [Mass/Vol] 1.8 mg/dL 1.8-2.4 [facility] Potassium [Moles/Vol] 4.0 mmol/L 3.5-5.[address] [facility] Protein [Mass/Vol] 0.5 g/dL Not Observed [facility] Sodium [Moles/Vol] 138 mmol/L 136-145 [facility] Urate [Mass/Vol] 8.5 mg/dL 2.6-6.0 [facility] Urea nitrogen [Mass/Vol] 35.0 mg/dL 7.0-18.0 [facility] Urea nitrogen/Creatinine [Mass ratio] 21.3 mg/mg [facility] Laboratory - Specimen inform ationon 02-03-2024 Appearance (U) CLEAR CLEAR [facility] Color (U) LT. YELLOW YELLOW [facility] Laboratory - Urinalysison Leukocyte esterase Test strip Ql (U) MODERATE NEGATIVE [facility] Nitrite Ql (U) Negative NEGATIVE [facility] Protein (U) [Mass/Vol] 190.1 mg/dL <=11.9 [facility] Protein Ql (U) >=300 mg/dL NEG/TRACE [facility] Leukocytes [#/volume] correc chetna for nucleated erythrocytes in Blood by Automated counon 02-03-2024 WBC corrected for nucl RBC Auto (Bld) [#/Vol] 10.3 10 3/uL 4.0-11.0 [facility] MCH Auto (RBC) [Entitic mass ]on 02-03-2024 MCH (RBC) [Entitic mass] 30.0 pg 26.7-34.0 [facility] MCHC Auto (RBC) [Mass/Vol]on 02-03-2024 MCHC (RBC) [Mass/Vol] 32.9 g/dL 29.9-35.[address] [facility] MCV Auto (RBC) [Entitic vol] on 02-03-2024 MCV (RBC) [Entitic vol] 91.1 fL 81.0-99.0 [facility] Mucus LM Ql (Urine sed)on Mucus Ql (Urine sed) NONE SEEN NONE SEEN [facility] No Panel Informationon 02-02 Urine Bacteria LARGE #/HPF NONE SEEN [facility] Urine Occult Blood TRACE-I NEGATIVE [facility] Urine Other Crystals None Seen #/HPF None Seen [facility] Urine Random Creatinine 81.44 mg/dL 20.00-300.0 0 [facility] Urine RBC 2-5 #/HPF 0-2 [facility] Urine Squamous Epithelial Cells FEW #/LPF NONE/RARE [facility] Urine WBC 20-50 #/HPF NONE SEEN [facility] 25-Hydroxy Vitamin D Total 78.2 ng/mL [facility] Comment on above: <20 ng/mL Vit D defi cient20-<30 ng/mL Vit D iezuacxjdogv74-429 ng/mL Vit D sufficient>100 ng/mL Potential Toxicity Folate 29.10 ng/mL 8.60-58.90 [facility] Parathyroid Hormone (Intact) 33 pg/mL 15-65 [facility] Comment on above: Performed at: [address] [id number] Director: Yrn Maher PhD, Phone: [phone] Phosphorus Level 3.8 mg/dL 2.6-4.7 [facility] Protein Electrophoresis Note Comment . [facility] Comment on above: Protein electrophore sis scan will follow via computer,mail, or insurance sales manager delivery. Platelet mean volume Auto (B ld) [Entitic vol]on 02-03-2024 Platelet mean volume (Bld) [Entitic vol] 10.9 fL 9.5-13.5 [facility] Platelets Auto (Bld) [#/Vol] on 02-03-2024 Platelets (Bld) [#/Vol] 275 10 3/uL 150-450 [facility] Protein [Mass/volume] in Ser um or Plasmaon 02-03-2024 Protein [Mass/Vol] 7.0 g/dL 6.0-8.5 [facility] RBC Auto (Bld) [#/Vol]on RBC (Bld) [#/Vol] 4.47 10 6/uL 4.20-5.40 [facility] Serum globulin measurement ( mass/volume)on 02-03-2024 Globulin (S) [Mass/Vol] 3.4 g/dL 2.2-3.9 [facility] Serum or plasma albumin/glob ulin mass ratioon 02-03-2024 Albumin/Globulin [Mass ratio] 1.1 {ratio} 0.7-1.7 [facility] Serum or plasma alpha 1 glob ulin measurement by electrophoresis (mass/volume)on 02-03-2024 Alpha 1 globulin Elph [Mass/Vol] 0.3 g/dL 0.0-0.4 [facility] Serum or plasma alpha 2 glob ulin measurement by electrophoresis (mass/volume)on 02-03-2024 Alpha 2 globulin Elph [Mass/Vol] 1.0 g/dL 0.4-1.0 [facility] Serum or plasma anion gap de terminationon 02-03-2024 Anion gap [Moles/Vol] 14.7 mmol/L [facility] Serum or plasma beta globuli n measurement by electrophoresis (mass/volume)on 02-03-2024 Beta globulin Elph [Mass/Vol] 1.0 g/dL 0.7-1.3 [facility] Serum or plasma gamma globul in measurement by electrophoresis (mass/volume)on 02-03-2024 Gamma globulin Elph [Mass/Vol] 1.2 g/dL 0.4-1.8 [facility] Serum or plasma immunoelectr ophoresis interpretationon 02-03-2024 Interpretation IEP [Interp] Comment . [facility] Comment on above: Immunofixation shows IgM monoclonal protein with kappalight chain specificity. Urine protein/creatinine rat ioon 02-03-2024 Protein/Creatinine (U) [Ratio] 2.33 [facility] Ophthalmic OCT panelon 10-31 [facility] Right Eye Images reviewed and comparison made [...] as well. Poor scan left eye (OS)> [facility] Study observation (narrative) [facility] US Eye+Orbit - bilateralon 0 10-31-2023 Diagnosis: Cataract both eyes (OU) Testing Indication: Performed for preop measurements in the determination of an intraocular lens (IOL) for both eyes (OU) Test Reliability: Good quality both eyes (OU) Interpretation: Good measurements for intraocular lens (IOL) calculation purposes. Calculation made for both eyes (OU). [facility] Study observation (narrative) [facility] CBC W Auto Differential pane l (Bld)on 05-21-2023 Basophils (Bld) [#/Vol] 0.07 10*3/uL <0.11 k/uL [facility] Basophils/100 WBC (Bld) 0.6 % [facility] Differential cell count method Nom (Bld) Auto [facility] Eosinophils (Bld) [#/Vol] 0.17 10*3/uL <0.46 k/uL [facility] Eosinophils/100 WBC (Bld) 1.6 % [facility] Erythrocyte distribution width (RBC) [Ratio] 12.8 % 11.5 - 15.0 % [facility] Hematocrit (Bld) [Volume fraction] 38.7 % 36.0 - 46.0 % [facility] Hemoglobin (Bld) [Mass/Vol] 13.0 g/dL 11.5 - 15.5 g/dL [facility] Immature granulocytes (Bld) [#/Vol] 0.04 10*3/uL <0.10 k/uL [facility] Immature granulocytes/100 WBC (Bld) 0.4 % [facility] Lymphocytes (Bld) [#/Vol] 1.74 10*3/uL 1.00 - 4.00 k/uL [facility] Lymphocytes/100 WBC (Bld) 16.0 % [facility] MCH (RBC) [Entitic mass] 31.7 pg 26.0 - 34.0 pg [facility] MCHC (RBC) [Mass/Vol] 33.6 g/dL 30.5 - 36.0 g/dL [facility] MCV (RBC) [Entitic vol] 94.4 fL 80.0 - 100.0 fL [facility] Monocytes (Bld) [#/Vol] 0.94 10*3/uL High <0.87 k/uL [facility] Monocytes/100 WBC (Bld) 8.6 % [facility] Neutrophils (Bld) [#/Vol] 7.94 10*3/uL High 1.45 - 7.50 k/uL [facility] Neutrophils/100 WBC (Bld) 72.8 % [facility] Nucleated RBC (Bld) [#/Vol] <0.01 k/uL [facility] Nucleated RBC/100 WBC (Bld) [Ratio] 0.0 /100 WBC [facility] Platelet mean volume (Bld) [Entitic vol] 12.1 fL 9.0 - 12.7 fL [facility] Platelets (Bld) [#/Vol] 293 10*3/uL 150 - 400 k/uL [facility] RBC (Bld) [#/Vol] 4.10 10*6/uL 3.90 - 5.2 0 m/uL [facility] WBC (Bld) [#/Vol] 10.90 10*3/uL 3.70 - 11.00 k/uL [facility] Comprehensive metabolic 2000 panelon 05-21-2023 Albumin [Mass/Vol] 4.6 g/dL 3.9 - 4.9 g/dL [facility] ALP [Catalytic activity/Vol] 96 U/L 34 - 123 U/L [facility] ALT [Catalytic activity/Vol] 13 U/L 7 - 38 U/L [facility] Anion gap [Moles/Vol] 13 mmol/L 9 - 18 mmol/L [facility] AST [Catalytic activity/Vol] 18 U/L 13 - 35 U/L [facility] Bilirubin [Mass/Vol] 0.3 mg/dL 0.2 - 1 .3 mg/dL [facility] Calcium [Mass/Vol] 10.0 mg/dL 8.5 - 10. 2 mg/dL [facility] Chloride [Moles/Vol] 101 mmol/L 97 - 10 5 mmol/L [facility] CO2 [Moles/Vol] 26 mmol/L 22 - 30 mmol/L [facility] Creatinine [Mass/Vol] 1.32 mg/dL High 0.58 - 0.96 mg/dL [facility] Estimated Glomerular Filtration Rate 41 mL/min/1.73m Low >=60 mL/min/1.73 m [facility] Glucose [Mass/Vol] 119 mg/dL High 74 - 99 mg/dL [facility] Potassium [Moles/Vol] 4.1 mmol/L 3.7 - 5.1 mmol/L [facility] Protein [Mass/Vol] 7.6 g/dL 6.3 - 8.0 g/dL [facility] Sodium [Moles/Vol] 140 mmol/L 136 - 144 mmol/L [facility] Urea nitrogen [Mass/Vol] 32 mg/dL High 7 - 21 mg/dL [facility] Calcium.ionized [Moles/Vol]o n 05-20-2023 Calcium.ionized (Bld) [Mass/Vol] 1.23 mmol/L 1.08 - 1.30 mmol/L [facility] Calcium.ionized adjusted to pH 7.4 (Bld) [Moles/Vol] 1.20 mmol/L 1.08 - 1.30 mmol/L [facility] CA 15-3 BLDon 05-01-2023 Cancer Ag 15-3 Qn 9.9 U/mL <26.0 U/mL [facility] CA 27.29 BLOODon 05-01-2023 Cancer Ag - Qn 12.5 [arb'U]/mL <38.6 U/mL [facility] CBC W Auto Differential pane l (Bld)on 05-01-2023 Basophils (Bld) [#/Vol] 0.06 10*3/uL <0.11 k/uL [facility] Basophils/100 WBC (Bld) 0.6 % [facility] Differential cell count method Nom (Bld) Auto [facility] Eosinophils (Bld) [#/Vol] 0.18 10*3/uL <0.46 k/uL [facility] Eosinophils/100 WBC (Bld) 1.9 % [facility] Erythrocyte distribution width (RBC) [Ratio] 12.7 % 11.5 - 15.0 % [facility] Hematocrit (Bld) [Volume fraction] 36.4 % 36.0 - 46.0 % [facility] Hemoglobin (Bld) [Mass/Vol] 12.2 g/dL 11.5 - 15.5 g/dL [facility] Immature granulocytes (Bld) [#/Vol] 0.03 10*3/uL <0.10 k/uL [facility] Immature granulocytes/100 WBC (Bld) 0.3 % [facility] Lymphocytes (Bld) [#/Vol] 1.62 10*3/uL 1.00 - 4.00 k/uL [facility] Lymphocytes/100 WBC (Bld) 17.3 % [facility] MCH (RBC) [Entitic mass] 32.0 pg 26.0 - 34.0 pg [facility] MCHC (RBC) [Mass/Vol] 33.5 g/dL 30.5 - 36.0 g/dL [facility] MCV (RBC) [Entitic vol] 95.5 fL 80.0 - 100.0 fL [facility] Monocytes (Bld) [#/Vol] 0.99 10*3/uL High <0.87 k/uL [facility] Monocytes/100 WBC (Bld) 10.6 % [facility] Neutrophils (Bld) [#/Vol] 6.50 10*3/uL 1.45 - 7.50 k/uL [facility] Neutrophils/100 WBC (Bld) 69.3 % [facility] Nucleated RBC (Bld) [#/Vol] <0.01 k/uL [facility] Nucleated RBC/100 WBC (Bld) [Ratio] 0.0 /100 WBC [facility] Platelet mean volume (Bld) [Entitic vol] 11.9 fL 9.0 - 12.7 fL [facility] Platelets (Bld) [#/Vol] 252 10*3/uL 150 - 400 k/uL [facility] RBC (Bld) [#/Vol] 3.81 10*6/uL Low 3.90 - 5.2 0 m/uL [facility] WBC (Bld) [#/Vol] 9.38 10*3/uL 3.70 - 11.00 k/uL [facility] Comprehensive metabolic 2000 panelon 05-01-2023 Albumin [Mass/Vol] 4.3 g/dL 3.9 - 4.9 g/dL [facility] ALP [Catalytic activity/Vol] 93 U/L 34 - 123 U/L [facility] ALT [Catalytic activity/Vol] 14 U/L 7 - 38 U/L [facility] Anion gap [Moles/Vol] 14 mmol/L 9 - 18 mmol/L [facility] AST [Catalytic activity/Vol] 18 U/L 13 - 35 U/L [facility] Bilirubin [Mass/Vol] 0.3 mg/dL 0.2 - 1 .3 mg/dL [facility] Calcium [Mass/Vol] 10.6 mg/dL High 8.5 - 10. 2 mg/dL [facility] Chloride [Moles/Vol] 98 mmol/L 97 - 10 5 mmol/L [facility] CO2 [Moles/Vol] 26 mmol/L 22 - 30 mmol/L [facility] Creatinine [Mass/Vol] 1.38 mg/dL High 0.58 - 0.96 mg/dL [facility] Estimated Glomerular Filtration Rate 39 mL/min/1.73m Low >=60 mL/min/1.73 m [facility] Glucose [Mass/Vol] 207 mg/dL High 74 - 99 mg/dL [facility] Potassium [Moles/Vol] 3.7 mmol/L 3.7 - 5.1 mmol/L [facility] Protein [Mass/Vol] 6.9 g/dL 6.3 - 8.0 g/dL [facility] Sodium [Moles/Vol] 138 mmol/L 136 - 144 mmol/L [facility] Urea nitrogen [Mass/Vol] 39 mg/dL High 7 - 21 mg/dL [facility] BNPon 08-24-2022 Natriuretic peptide B (Bld) [Mass/Vol] 1296.0 pg/mL Normal <=1,800.0 [facility] Comment on above: Performed By: #### B JD EDWARDS DEVELOPER, CMP ####[facility] [address] [place] [address]Dr. Swathi Reis CBC W MANUAL DIFFon 08-24-20 ATYPICAL LYMPH # Normal [facility] Comment on above: Performed By: #### C NGA ####[facility] [address] [place] [address]Dr. Swathi Reis ATYPICAL LYMPH % Normal [facility] Comment on above: Performed By: #### C NGA ####[facility] [address] [place] [address]Dr. Swathi Reis BAND # 0.1 103/ul Normal 0.0-0.3 [facility] Comment on above: Performed By: #### C JAUNMAN ####[facility] [address] [place] [address]Dr. Swathi Reis BAND % 1 % Normal 0-5 [facility] Comment on above: Performed By: #### C BCYUN ####[facility] [address] [place] [address]Dr. Swathi Reis BASOM # 0.00 103/ul Normal 0.00-0.10 [facility] Comment on above: Performed By: #### C NGA ####[facility] [address] [place] [address]Dr. Swathi Reis BASOM % 0.0 % Critically low 0.2-2.0 [facility] Comment on above: Performed By: #### C NGA ####[facility] [address] [place] [address]Dr. Swathi Reis BLAST # Normal [facility] Comment on above: Performed By: #### C BCYUN ####[facility] [address] [place] [address]Dr. Swathi Reis BLAST % Normal [facility] Comment on above: Performed By: #### C NGA ####[facility] [address] [place] [address]Dr. Swathi Reis CORRECTED WBC Normal 4.0-11.0 [facility] Comment on above: Performed By: #### C NGA ####[facility] [address] [place], [place] [address]Dr. Swathi Reis EOS # 0.39 103/ul Normal 0.00-0.70 [facility] Comment on above: Performed By: #### C NGA ####[facility] [address] [place], [place] [address]Dr. Swathi Reis EOS% 3.0 % Normal 0.9-7.0 [facility] Comment on above: Performed By: #### C NGA ####[facility] [address] [place], [place] [address]Dr. Swathi Reis HCT 32.6 % Critically low 36.0-48.0 [facility] Comment on above: Performed By: #### C NGA ####[facility] [address] [place], [place] [address]Dr. Swathi Reis HGB 10.6 g/dl Critically low 12.0-16.0 [facility] Comment on above: Performed By: #### C NGA ####[facility] [address] [place], [place] [address]Dr. Swathi Reis HYPOCHROMASIA SLIGHT Normal [facility] Comment on above: Performed By: #### C NGA ####[facility] [address] [place], [place] [address]Ys. Swathi Reis LYMPHM # 1.04 103/ul Critically low 1.20-3.80 [facility] Comment on above: Performed By: #### C NGA ####[facility] [address] [place] [id number]. Swathi Reis LYMPHM% 8.0 % Critically low 20.5-60.0 [facility] Comment on above: Performed By: #### C NGA ####[facility] [address] [place] [phone]. Swathi Reis MCH 29.2 pg Normal 26.7-34.0 [facility] Comment on above: Performed By: #### C NGA ####[facility] [address] [place] [phone]. Swathi Reis MCHC 32.5 g/dl Normal 29.9-35.2 [facility] Comment on above: Performed By: #### C NGA ####[facility] [address] [place] [phone]. Swathi Reis MCV 89.8 fL Normal 81.0-99.0 [facility] Comment on above: Performed By: #### C NGA ####[facility] [address] [place] [phone]. Swathi Reis METAMYELOCYTE # Normal [facility] Comment on above: Performed By: #### C NGA ####[facility] [address] [place] [phone]. Swathi Reis METAMYELOCYTE % Normal [facility] Comment on above: Performed By: #### C NGA ####[facility] [address] [place] [phone]. Swathi Reis MONOM# 1.17 103/ul Critically high 0.30-0.80 [facility] Comment on above: Performed By: #### C NGA ####[facility] [address] [place], [place] [address]Pn. Swathi Reis MONOM% 9.0 % Normal 1.7-12.0 [facility] Comment on above: Performed By: #### C NGA ####[facility] [address] [place], [place] [address]It. Swathi Reis MPV 10.0 fL Normal 9.5-13.5 [facility] Comment on above: Performed By: #### C NGA ####[facility] [address] [place], [place] [address]Ol. Swathi Reis MYELOCYTE # Normal [facility] Comment on above: Performed By: #### C NGA ####[facility] [address] [place] [phone]. Swathi Reis MYELOCYTE % Normal [facility] Comment on above: Performed By: #### C NGA ####[facility] [address] [place] [phone]. Swathi Reis NRBC Normal [facility] Comment on above: Performed By: #### C NGA ####[facility] [address] [place] [phone]. Swathi Reis PLT 353 103/ul Normal 150-450 [facility] Comment on above: Performed By: #### C NGA ####[facility] [address] [place], [place] [address]Wn. Swathi Reis RBC 3.63 106/ul Critically low 4.20-5.40 [facility] Comment on above: Performed By: #### C NGA ####[facility] [address] [place] [phone]. Swathi Reis RDW 13.6 % Normal 11.0-15.0 [facility] Comment on above: Performed By: #### C NGA ####[facility] [address] [place] [phone]. Swathi Reis SEG # 10.27 103/ul Critically high 1.40-6.50 [facility] Comment on above: Performed By: #### C BCMAN ####[facility] X[address] [place] [phone]. Swathi Reis SEG % 79.0 % Critically high 43.0-75.0 [facility] Comment on above: Performed By: #### C JAUNMAN ####[facility] [address] [place] [phone]. Swathi Reis WBC 13.0 103/ul Critically high 4.0-11.0 [facility] Comment on above: Performed By: #### C NGA ####[facility] [address] [place] [address]Dr. Swathi Reis DIGOXINon 08-24-2022 DIG 1.8 ng/mL Normal 0.9-2.0 [facility] Comment on above: Performed By: #### D IG ####[facility] [address]tr[address] [place] [address]Dr. Swathi Reis PROF 14(COMP METB)on 022 Albumin [Mass/Vol] 2.4 g/dL Critically low 3.4-5.0 [facility] Comment on above: Performed By: #### B JD EDWARDS DEVELOPER, CMP ####[facility] F[address] [place], [place] [address]Dr. wSathi Reis Albumin/Globulin [Mass ratio] 0.5 {ratio} Normal [facility] Comment on above: Performed By: #### B JD EDWARDS DEVELOPER, CMP ####[facility] [address] [place] [address]Dr. Swathi Reis ALP [Catalytic activity/Vol] 93 U/L Normal 46-116 [facility] Comment on above: Performed By: #### B JD EDWARDS DEVELOPER, CMP ####[facility] [address]xd[address]xp[address] [place] [address]Dr. Swathi Reis ALT [Catalytic activity/Vol] 8 U/L Critically low 14-59 [facility] Comment on above: Performed By: #### B JD EDWARDS DEVELOPER, CMP ####[facility] [address] [place] [address]Dr. Swathi Reis Anion gap [Moles/Vol] 11.2 mmol/L Normal [facility] Comment on above: Performed By: #### B JD EDWARDS DEVELOPER, CMP ####[facility] [address] [place] [address]Dr. Swathi Reis AST [Catalytic activity/Vol] 14 U/L Critically low 15-37 [facility] Comment on above: Performed By: #### B JD EDWARDS DEVELOPER, CMP ####[facility] [address] [place] [address]Dr. Swathi Reis Bilirubin [Mass/Vol] 0.4 mg/dL Normal 0.2-1.0 [facility] Comment on above: Performed By: #### B JD EDWARDS DEVELOPER, CMP ####[facility] [address] [place], [place] [address]Dr. Swathi Reis Calcium [Mass/Vol] 9.4 mg/dL Normal 8.5-10.1 [facility] [place] Comment on above: Performed By: #### B JD EDWARDS DEVELOPER, CMP ####[facility] Pwnu[address] [place], [place] [address]Dr. Swathi Reis Chloride [Moles/Vol] 101 mmol/L Normal 98-107 [facility] Comment on above: Performed By: #### B JD EDWARDS DEVELOPER, CMP ####[facility] [address] [place], [place] [address]Dr. Swathi Reis CO2 [Moles/Vol] 31.0 mmol/L Normal 21.0-32.0 [facility] Comment on above: Performed By: #### B JD EDWARDS DEVELOPER, CMP ####[facility] [address] [place], [place] [address]Dr. Swathi Reis Creatinine [Mass/Vol] 1.49 mg/dL Critically high 0.55-1.02 [facility] Comment on above: Performed By: #### B JD EDWARDS DEVELOPER, CMP ####[facility] Htpap[address]ees[address] [place], [place] [address]Dr. Swathi Reis EGFR-AF GRENADIAN 41 mL/min/1.73m2 Critically low >=60 [facility] Comment on above: Performed By: #### B JD EDWARDS DEVELOPER, CMP ####[facility] [address]ktimov[address] [place], [place] [address]Dr. Swathi Reis EGFR-NON AF GRENADIAN 34 mL/min/1.73m2 Critically low >=60 [facility] Comment on above: Performed By: #### B JD EDWARDS DEVELOPER, CMP ####[facility] Rdxxmfoejg[address] [place], [place] [address]Dr. Swathi Reis Globulin (S) [Mass/Vol] 4.8 g/dL Normal [facility] Comment on above: Performed By: #### B JD EDWARDS DEVELOPER, CMP ####[facility] [address]msw[address]yl[address] [place], [place] [address]Dr. Inessatracy Chato Glucose [Mass/Vol] 153 mg/dL Critically high 74-106 [facility] Comment on above: Performed By: #### B JD EDWARDS DEVELOPER, CMP ####[facility] N[address]xs[address] [place], [place] [address]Dr. Inessatracy Chato Potassium [Moles/Vol] 4.2 mmol/L Normal 3.5-5.1 [facility] Comment on above: Performed By: #### B JD EDWARDS DEVELOPER, CMP ####[facility] H[address] [place], [place] [address]Dr. Inessatracy Reis Protein [Mass/Vol] 7.2 g/dL Normal 6.4-8.2 [facility] Comment on above: Performed By: #### B JD EDWARDS DEVELOPER, CMP ####[facility] [address]cs[address] [place], [place] [address]Dr. Swathi Reis Sodium [Moles/Vol] 139 mmol/L Normal 136-145 [facility] [place] Comment on above: Performed By: #### B JD EDWARDS DEVELOPER, CMP ####[facility] [address] [place], [place] [address]Dr. Inessatracy Chato Urea nitrogen [Mass/Vol] 22.0 mg/dL Critically high 7.0-18.0 [facility] Comment on above: Performed By: #### B JD EDWARDS DEVELOPER, CMP ####[facility] Frdswc[address]jm[address] [place], [place] [address]Dr. Inessatracy Chato Urea nitrogen/Creatinine [Mass ratio] 14.8 mg/mg Normal [facility] Comment on above: Performed By: #### B JD EDWARDS DEVELOPER, CMP ####[facility] [address] [place], [place] [address]Dr. Swathi Reis BNPon 08-23-2022 Natriuretic peptide B (Bld) [Mass/Vol] 1755.0 pg/mL Normal <=1,800.0 [facility] Comment on above: Performed By: #### B JD EDWARDS DEVELOPER, CMP ####[facility] [address] [place], [place] [address]Dr. Swathi Reis CBC AUTO DIFFon 08-23-2022 BASO # 0.1 103/ul Normal 0.0-0.1 [facility] Comment on above: Performed By: #### C BC ####[facility] [address] [place], [place] [address]Dr. Inessatracy Reis Basophils/100 WBC (Bld) 0.7 % Normal 0.2-2.0 [facility] Comment on above: Performed By: #### C BC ####[facility] [address] [place], [place] [address]Dr. Swathi Reis EO # 0.2 103/ul Normal 0.0-0.7 [facility] Comment on above: Performed By: #### C BC ####[facility] [address] [place], [place] [address]Dr. Swathi Chato Eosinophils/100 WBC (Bld) 2.2 % Normal 0.9-7.0 [facility] Comment on above: Performed By: #### C BC ####[facility] [address] [place], [place] [address]Dr. Swathi Reis Erythrocyte distribution width (RBC) [Ratio] 13.6 % Normal 11.0-15.0 [facility] Comment on above: Performed By: #### C BC ####[facility] Z[address]cdmdze[address] [place], [place] [address]Dr. Inessatracy Reis Hematocrit (Bld) [Volume fraction] 33.1 % Critically low 36.0-48.0 [facility] Comment on above: Performed By: #### C BC ####[facility] Twgffhracd[address] [place], [place] [address]Dr. Swathi Reis Hemoglobin (Bld) [Mass/Vol] 10.6 g/dL Critically low 12.0-16.0 [facility] Comment on above: Performed By: #### C BC ####[facility] V[address]fr[address] [place] [phone]. Swathi Reis IG # 0.12 10e3/ul Critically high 0.00-0.03 [facility] Comment on above: Performed By: #### C BC ####[facility] Dkxnblaxyf90[address] [place] [phone]. Swathi Reis IG % 1.1 % Critically high 0.0-0.5 [facility] Comment on above: Performed By: #### C BC ####[facility] Thypklwnfy[address] [place] [address]Dr. Swathi Reis LYMPH # 1.6 103/ul Normal 1.2-3.8 [facility] Comment on above: Performed By: #### C BC ####[facility] Uexdfcjush22[address] [place] [address]DrOtto Reis Lymphocytes/100 WBC (Bld) 14.6 % Critically low 20.5-60.0 [facility] Comment on above: Performed By: #### C BC ####[facility] Shzrejfcku70[address] [place] [address]DrOtto Reis MANUAL DIFF REQ NO Normal [facility] Comment on above: Performed By: #### C BC ####[facility] Iegghivoyz80[address] [place] [address]Dr. Swathi Reis MCH (RBC) [Entitic mass] 29.0 pg Normal 26.7-34.0 [facility] Comment on above: Performed By: #### C BC ####[facility] Ckvmhcoyma2[address] [place] [address]Dr. Swathi Reis MCHC (RBC) [Mass/Vol] 32.0 g/dL Normal 29.9-35.2 [facility] Comment on above: Performed By: #### C BC ####[facility] Yzshjsqaru9[address] [place] [phone] Reis MCV (RBC) [Entitic vol] 90.4 fL Normal 81.0-99.0 [facility] Comment on above: Performed By: #### C BC ####[facility] Ipajzuljex6798 [place] [phone]. Swathi Reis MONO # 1.4 103/ul Critically high 0.3-0.8 [facility] Comment on above: Performed By: #### C BC ####[facility] Okilcchpig7[address] [place] [phone]. Swathi Reis Monocytes/100 WBC (Bld) 12.8 % Critically high 1.7-12.0 [facility] Comment on above: Performed By: #### C BC ####[facility] Knbrzqiopo3446 [place] [phone]. Swathi Reis NEUT # 7.5 103/ul Critically high 1.4-6.5 [facility] Comment on above: Performed By: #### C BC ####[facility] Jtpvbaygfe[address] [place] [address]Dr. Swathi Reis Neutrophils/100 WBC (Bld) 68.6 % Normal 43.0-75.0 [facility] Comment on above: Performed By: #### C BC ####[facility] Wsqnsxnngx3484 [place] [phone]. Swathi Reis Platelet mean volume (Bld) [Entitic vol] 10.3 fL Normal 9.5-13.5 [facility] Comment on above: Performed By: #### C BC ####[facility] Qbzsaswleu0483 [place] [phone]. Swathi Reis PLT 387 103/ul Normal 150-450 [facility] Comment on above: Performed By: #### C BC ####[facility] Uwnbewofbj4547 [place] [phone]. Swathi Reis RBC 3.66 106/ul Critically low 4.20-5.40 [facility] Comment on above: Performed By: #### C BC ####[facility] Cytiujvyzd4393 [place] [phone]. Swathi Reis WBC 11.0 103/ul Normal 4.0-11.0 [facility] Comment on above: Performed By: #### C BC ####[facility] Yefunculli29[address] [place] [address]Dr. Swathi Reis DIGOXINon 08-23-2022 DIG 1.6 ng/mL Normal 0.9-2.0 [facility] Comment on above: Performed By: #### D IG ####[facility] Nayymzfgcl9[address] [place] [address]Dr. Swathi Reis POINT OF CARE GLUCOSEon Glucose [Mass/Vol] 167 mg/dL Critically high 74-106 [facility] Comment on above: Performed By: #### P OCGLUC ####[facility] Baveblowua[address] [place], [place] [address]Dr. Swathi Reis Glucose [Mass/Vol] 114 mg/dL Critically high 74-106 [facility] Comment on above: Performed By: #### P OCGLUC ####[facility] Nbwdepwkkd7697 [place] [address]Dr. Swathi Reis Glucose [Mass/Vol] 272 mg/dL Critically high -106 [facility] Comment on above: Performed By: #### P OCGLUC ####[facility] Hnzvqfkqnz[address] [place], [place] [address]Dr. Swathi Reis PROF 14(COMP METB)on 022 Albumin [Mass/Vol] 2.4 g/dL Critically low 3.4-5.0 [facility] Comment on above: Performed By: #### B JD EDWARDS DEVELOPER, CMP ####[facility] Rsrnocnxhr0916[address] [place], [place] [address]Dr. Swathi Reis Albumin/Globulin [Mass ratio] 0.5 {ratio} Normal [facility] Comment on above: Performed By: #### B JD EDWARDS DEVELOPER, CMP ####[facility] Spsmgjtobu[address] [place], [place] [address]Dr. Swathi Reis ALP [Catalytic activity/Vol] 104 U/L Normal 46-116 [facility] Comment on above: Performed By: #### B JD EDWARDS DEVELOPER, CMP ####[facility] Tulyruzfbl[address] [place], [place] [address]Dr. Swathi Reis ALT [Catalytic activity/Vol] 7 U/L Critically low 14-59 [facility] Comment on above: Performed By: #### B JD EDWARDS DEVELOPER, CMP ####[facility] Civulboynx434[address] [place], [place] [address]Dr. Swathi Reis Anion gap [Moles/Vol] 11.1 mmol/L Normal [facility] Comment on above: Performed By: #### B JD EDWARDS DEVELOPER, CMP ####[facility] Jynxpoblas1034[address] [place], [place] [address]Dr. Swathi Reis AST [Catalytic activity/Vol] 19 U/L Normal 15-37 [facility] Comment on above: Performed By: #### B JD EDWARDS DEVELOPER, CMP ####[facility] Yxqldhwgni8199[address] [place], [place] [address]Dr. Swathi Reis Bilirubin [Mass/Vol] 0.4 mg/dL Normal 0.2-1.0 [facility] Comment on above: Performed By: #### B JD EDWARDS DEVELOPER, CMP ####[facility] Fdgckmojxi9379[address] [place], [place] [address]Dr. Swathi Reis Calcium [Mass/Vol] 9.5 mg/dL Normal 8.5-10.1 [facility] Comment on above: Performed By: #### B JD EDWARDS DEVELOPER, CMP ####[facility] Ahrrvvrmvd[address] [place], [place] [address]Dr. Swathi Reis Chloride [Moles/Vol] 101 mmol/L Normal 98-107 [facility] Comment on above: Performed By: #### B JD EDWARDS DEVELOPER, CMP ####[facility] Zslnqdlyvt45[address] [place], [place] [address]Dr. Swathi Reis CO2 [Moles/Vol] 30.7 mmol/L Normal 21.0-32.0 [facility] Comment on above: Performed By: #### B JD EDWARDS DEVELOPER, CMP ####[facility] Hfevbwxpyu7108[address] [place], [place] [address]Dr. Swathi Chato Creatinine [Mass/Vol] 1.53 mg/dL Critically high 0.55-1.02 [facility] Comment on above: Performed By: #### B JD EDWARDS DEVELOPER, CMP ####[facility] Nnzrkmesuc9875 [place] [address]Dr. Swathi Reis EGFR-AF GRENADIAN 40 mL/min/1.73m2 Critically low >=60 [facility] Comment on above: Performed By: #### B JD EDWARDS DEVELOPER, CMP ####[facility] Jpytjcfyij4[address] [place], [place] [address]Dr. Swathi Reis EGFR-NON AF GRENADIAN 33 mL/min/1.73m2 Critically low >=60 [facility] Comment on above: Performed By: #### B JD EDWARDS DEVELOPER, CMP ####[facility] Howpdladgo039[address] [place], [place] [address]Dr. Swathi Reis Globulin (S) [Mass/Vol] 4.9 g/dL Normal [facility] Comment on above: Performed By: #### B JD EDWARDS DEVELOPER, CMP ####[facility] Aggtnjutir263[address] [place], [place] [address]Dr. Swathi Reis Glucose [Mass/Vol] 139 mg/dL Critically high 74-106 [facility] Comment on above: Performed By: #### B JD EDWARDS DEVELOPER, CMP ####[facility] Iwuhuuuqjm3[address] [place], [place] [address]Dr. Swathi Reis Potassium [Moles/Vol] 3.8 mmol/L Normal 3.5-5.1 [facility] Comment on above: Performed By: #### B JD EDWARDS DEVELOPER, CMP ####[facility] Vffxonqgni146[address] [place], [place] [address]Dr. Swathi Reis Protein [Mass/Vol] 7.3 g/dL Normal 6.4-8.2 [facility] Comment on above: Performed By: #### B JD EDWARDS DEVELOPER, CMP ####[facility] Bkasvgqawz2927[address] [place], [place] [address]Dr. Swathi Reis Sodium [Moles/Vol] 139 mmol/L Normal 136-145 [facility] [place] Comment on above: Performed By: #### B JD EDWARDS DEVELOPER, CMP ####[facility] Lxkprwmvfp2899[address] [place], [place] [address]Dr. Swathi Reis Urea nitrogen [Mass/Vol] 26.0 mg/dL Critically high 7.0-18.0 [facility] Comment on above: Performed By: #### B JD EDWARDS DEVELOPER, CMP ####[facility] Kilfdnaltw32[address] [place], [place] [address]Dr. Swathi Reis Urea nitrogen/Creatinine [Mass ratio] 17.0 mg/mg Normal [facility] Comment on above: Performed By: #### B JD EDWARDS DEVELOPER, CMP ####[facility] Lsytalceed1594[address] [place], [place] [address]Dr. Swathi Chato BNPon 08-22-2022 Natriuretic peptide B (Bld) [Mass/Vol] 3439.0 pg/mL Critically high <=1,800.0 [facility] Comment on above: Performed By: #### C MP, BNP ####[facility] Jieraltspd12[address] [place], [place] [address]Dr. Swathi Reis CBC AUTO DIFFon 08-22-2022 BASO # 0.1 103/ul Normal 0.0-0.1 [facility] Comment on above: Performed By: #### C BC ####[facility] Zruxhokitw[address] [place], [place] [address]Dr. Swathi Reis Basophils/100 WBC (Bld) 0.6 % Normal 0.2-2.0 [facility] Comment on above: Performed By: #### C BC ####[facility] Onytpufshd[address] [place], [place] [address]Dr. Swathi Reis EO # 0.3 103/ul Normal 0.0-0.7 [facility] Comment on above: Performed By: #### C BC ####[facility] Pgiyesxajg6875[address] [place], [place] [address]Dr. Swathi Reis Eosinophils/100 WBC (Bld) 2.1 % Normal 0.9-7.0 [facility] Comment on above: Performed By: #### C BC ####[facility] Lhpjhdvdth11[address] [place], [place] [address]Dr. Swathi Reis Erythrocyte distribution width (RBC) [Ratio] 13.8 % Normal 11.0-15.0 [facility] Comment on above: Performed By: #### C BC ####[facility] Uqnnpuhjbc64[address] [place], [place] [address]Dr. Swathi Reis Hematocrit (Bld) [Volume fraction] 31.9 % Critically low 36.0-48.0 [facility] Comment on above: Performed By: #### C BC ####[facility] Hoxqwvfdzz9941 [place] [address]Dr. Swathi Reis Hemoglobin (Bld) [Mass/Vol] 10.2 g/dL Critically low 12.0-16.0 [facility] Comment on above: Performed By: #### C BC ####[facility] Xizkdjzfex9[address] [place], [place] [address]Dr. Swathi Reis IG # 0.10 10e3/ul Critically high 0.00-0.03 [facility] Comment on above: Performed By: #### C BC ####[facility] Xamnaikhsi1335[address] [place], [place] [address]Dr. Swathi Reis IG % 0.8 % Critically high 0.0-0.5 [facility] Comment on above: Performed By: #### C BC ####[facility] Ogzvrtaphh64[address] [place], [place] [address]Dr. Swathi Reis LYMPH # 1.2 103/ul Normal 1.2-3.8 [facility] Comment on above: Performed By: #### C BC ####[facility] Mjgyensjrs9432[address] [place], [place] [address]Dr. Swathi Reis Lymphocytes/100 WBC (Bld) 9.6 % Critically low 20.5-60.0 [facility] Comment on above: Performed By: #### C BC ####[facility] Fcgbhrfwyx4594[address] [place], [place] [address]Dr. Swathi Reis MANUAL DIFF REQ NO Normal [facility] Comment on above: Performed By: #### C BC ####[facility] Vqhqqpjlpu049[address] [place], [place] [address]Dr. Swathi Reis MCH (RBC) [Entitic mass] 28.7 pg Normal 26.7-34.0 [facility] Comment on above: Performed By: #### C BC ####[facility] Snvcxzeacn9799[address] [place], [place] [address]Dr. Swathi Reis MCHC (RBC) [Mass/Vol] 32.0 g/dL Normal 29.9-35.2 [facility] Comment on above: Performed By: #### C BC ####[facility] Lryktvbshh05[address] [place], [place] [address]Dr. Swathi Reis MCV (RBC) [Entitic vol] 89.9 fL Normal 81.0-99.0 [facility] Comment on above: Performed By: #### C BC ####[facility] Neenwaxtqd250[address] [place], [place] [address]Dr. Swathi Reis MONO # 1.0 103/ul Critically high 0.3-0.8 [facility] Comment on above: Performed By: #### C BC ####[facility] Hsjtnlppiu0970[address] [place], [place] [address]Dr. Swathi Reis Monocytes/100 WBC (Bld) 8.5 % Normal 1.7-12.0 [facility] Comment on above: Performed By: #### C BC ####[facility] Qazcshvpvv5[address] [place], [place] [address]Dr. Swathi Reis NEUT # 9.6 103/ul Critically high 1.4-6.5 [facility] Comment on above: Performed By: #### C BC ####[facility] Hvamoylego33[address] [place], [place] [address]Dr. Swathi Reis Neutrophils/100 WBC (Bld) 78.4 % Critically high 43.0-75.0 [facility] Comment on above: Performed By: #### C BC ####[facility] Psgzgjnfwz[address] [place], [place] [address]Dr. Swathi Reis Platelet mean volume (Bld) [Entitic vol] 10.4 fL Normal 9.5-13.5 [facility] Comment on above: Performed By: #### C BC ####[facility] Onakfcerai1615[address] [place], [place] [address]Dr. Swathi Reis PLT 338 103/ul Normal 150-450 [facility] Comment on above: Performed By: #### C BC ####[facility] Xulcfisnqg2274[address] [place], [place] [address]Dr. Swathi Reis RBC 3.55 106/ul Critically low 4.20-5.40 [facility] Comment on above: Performed By: #### C BC ####[facility] Dzueihlhvm36[address] [place] [address]Dr. Swathi Reis WBC 12.2 103/ul Critically high 4.0-11.0 [facility] Comment on above: Performed By: #### C BC ####[facility] Gtwzcsxade29[address] [place] [address]Dr. Swathi Reis DIGOXINon 08-22-2022 DIG 1.5 ng/mL Normal 0.9-2.0 [facility] Comment on above: Performed By: #### D IG ####[facility] Nrkklxjsza823[address] [place], [place] [address]Dr. Swathi Reis POINT OF CARE GLUCOSEon 07-26 Glucose [Mass/Vol] 222 mg/dL Critically high 74-106 [facility] Comment on above: Performed By: #### P OCGLUC ####[facility] Mofsrdmhhu5134 [place] [address]Dr. Swathi Reis Glucose [Mass/Vol] 133 mg/dL Critically high 74-106 [facility] Comment on above: Performed By: #### P OCGLUC ####[facility] Xjpzdxvmat0525 [place] [address]Dr. Swathi Reis Glucose [Mass/Vol] 299 mg/dL Critically high 74-106 [facility] Comment on above: Performed By: #### P OCGLUC ####[facility] Qrvqfjytgh4991 [place] [address]Dr. Swathi Reis Glucose [Mass/Vol] 151 mg/dL Critically high 74-106 [facility] Comment on above: Performed By: #### P OCGLUC ####[facility] Mpkrzimgup[address] [place], [place] [address]Dr. Swathi Reis PROF 14(COMP METB)on 022 Albumin [Mass/Vol] 2.4 g/dL Critically low 3.4-5.0 [facility] Comment on above: Performed By: #### C MP, BNP ####[facility] Hwubczrfjq1150 [place] [id number]. Swathi Chato Albumin/Globulin [Mass ratio] 0.6 {ratio} Normal [facility] Comment on above: Performed By: #### C MP, BNP ####[facility] Yngldnurui6686 [place] [phone]. Swathi Reis ALP [Catalytic activity/Vol] 98 U/L Normal 46-116 [facility] Comment on above: Performed By: #### C MP, BNP ####[facility] Xzqwksccza8409 [place] [address]Dr. Swathi Reis ALT [Catalytic activity/Vol] 13 U/L Critically low 14-59 [facility] Comment on above: Performed By: #### C MP, BNP ####[facility] Qvmpspmxlq1556 [place] [address]Dr. Swathi Reis Anion gap [Moles/Vol] 12.4 mmol/L Normal [facility] Comment on above: Performed By: #### C MP, BNP ####[facility] Ozyaamaxhs8151 [place] [address]Dr. Swathi Reis AST [Catalytic activity/Vol] 23 U/L Normal 15-37 [facility] Comment on above: Performed By: #### C MP, BNP ####[facility] Wyrbuhgeoy1134 [place] [phone]. Swathi Reis Bilirubin [Mass/Vol] 0.6 mg/dL Normal 0.2-1.0 [facility] Comment on above: Performed By: #### C MP, BNP ####[facility] Oacgtzznay7344 [place] [phone]. Swathi Reis Calcium [Mass/Vol] 8.9 mg/dL Normal 8.5-10.1 [facility] Comment on above: Performed By: #### C MP, BNP ####[facility] Husbnwbkur79[address] [place] [address]Dr. Swathi Reis Chloride [Moles/Vol] 100 mmol/L Normal 98-107 [facility] Comment on above: Performed By: #### C MP, BNP ####[facility] Xhxietfenj0394 [place] [phone]. Swathi Reis CO2 [Moles/Vol] 30.6 mmol/L Normal 21.0-32.0 [facility] Comment on above: Performed By: #### C MP, BNP ####[facility] Swpwkpvxbb3325 [place] [phone]. Swathi Reis Creatinine [Mass/Vol] 1.54 mg/dL Critically high 0.55-1.02 [facility] Comment on above: Performed By: #### C MP, BNP ####[facility] Nurgqelaxu27[address] [place], [place] [address]Dr. Swathi Reis EGFR-AF GRENADIAN 40 mL/min/1.73m2 Critically low >=60 [facility] Comment on above: Performed By: #### C MP, BNP ####[facility] Oonomkgzgh9[address] [place], [place] [address]Dr. Swathi Reis EGFR-NON AF GRENADIAN 33 mL/min/1.73m2 Critically low >=60 [facility] Comment on above: Performed By: #### C MP, BNP ####[facility] Zomxirsofk3[address] [place], [place] [address]Dr. Swathi Reis Globulin (S) [Mass/Vol] 3.9 g/dL Normal [facility] Comment on above: Performed By: #### C MP, BNP ####[facility] Qxkvqtbvqp0870 [place] [address]Dr. Swathi Reis Glucose [Mass/Vol] 143 mg/dL Critically high 74-106 [facility] Comment on above: Performed By: #### C MP, BNP ####[facility] Zecvayuwhs[address] [place], [place] [id number]. Swathi Reis Potassium [Moles/Vol] 4.0 mmol/L Normal 3.5-5.1 [facility] Comment on above: Performed By: #### C MP, BNP ####[facility] Roiqjtaone76[address] [place], [place] [address]Dr. Swathi Reis Protein [Mass/Vol] 6.3 g/dL Critically low 6.4-8.2 [facility] Comment on above: Performed By: #### C MP, BNP ####[facility] Ctjvxwpwvs4796 [place] [address]Dr. Swathi Reis Sodium [Moles/Vol] 139 mmol/L Normal 136-145 [facility] [place] Comment on above: Performed By: #### C MP, BNP ####[facility] Zfqgynoizf[address] [place], [place] [address]Dr. Swathi Reis Urea nitrogen [Mass/Vol] 27.0 mg/dL Critically high 7.0-18.0 [facility] Comment on above: Performed By: #### C MP, BNP ####[facility] Ptgxuerytj8950[address] [place], [place] [address]Dr. Swathi Reis Urea nitrogen/Creatinine [Mass ratio] 17.5 mg/mg Normal [facility] Comment on above: Performed By: #### C MP, BNP ####[facility] Srgwasqtwh3225[address] [place], [place] [address]Dr. Swathi Reis VANCOMYCIN TROUGHon 08-22-20 VANCOMYCIN TROUGH 13.2 ug/ml Normal 5.0-20.0 [facility] Comment on above: Performed By: #### V ANCT ####[facility] Jnniasugfs8399[address] [place], [place] [address]Dr. Swathi Reis XR CHEST 2 Von 08-22-2022 XR CHEST 2 V Normal [facility] BNPon 08-21-2022 Natriuretic peptide B (Bld) [Mass/Vol] 3683.0 pg/mL Critically high <=1,800.0 [facility] Comment on above: Performed By: #### C MP, BNP ####[facility] Ukiijrivtw[address] [place], [place] [address]Dr. Swathi Reis CBC AUTO DIFFon 08-21-2022 BASO # 0.1 103/ul Normal 0.0-0.1 [facility] Comment on above: Performed By: #### C BC ####[facility] Gvchvoxgcr56[address] [place], [place] [address]Dr. Sawthi Reis Basophils/100 WBC (Bld) 0.4 % Normal 0.2-2.0 [facility] Comment on above: Performed By: #### C BC ####[facility] Nrzupillrd8034 [place] [address]DrOtto Reis EO # 0.2 103/ul Normal 0.0-0.7 [facility] Comment on above: Performed By: #### C BC ####[facility] Jmrmguofnz7[address] [place], [place] [address]DrOtto Reis Eosinophils/100 WBC (Bld) 1.8 % Normal 0.9-7.0 [facility] Comment on above: Performed By: #### C BC ####[facility] Fyxfszyjhk24[address] [place], [place] [address]Dr. Swathi Reis Erythrocyte distribution width (RBC) [Ratio] 14.4 % Normal 11.0-15.0 [facility] Comment on above: Performed By: #### C BC ####[facility] Iuligzbhkc37[address] [place], [place] [address]DrOtto Reis Hematocrit (Bld) [Volume fraction] 33.5 % Critically low 36.0-48.0 [facility] Comment on above: Performed By: #### C BC ####[facility] K[address]wuyjtiu[address] [place], [place] [address]DrOtto Reis Hemoglobin (Bld) [Mass/Vol] 10.8 g/dL Critically low 12.0-16.0 [facility] Comment on above: Performed By: #### C BC ####[facility] Hqwanpqwyi[address] [place], [place] [address]DrOtto Reis IG # 0.06 10e3/ul Critically high 0.00-0.03 [facility] Comment on above: Performed By: #### C BC ####[facility] Djhdhbcvai98[address] [place], [place] [address]DrOtto Reis IG % 0.5 % Normal 0.0-0.5 [facility] Comment on above: Performed By: #### C BC ####[facility] Zzeemkqimv[address] [place], [place] [address]DrOtto Reis LYMPH # 0.9 103/ul Critically low 1.2-3.8 [facility] Comment on above: Performed By: #### C BC ####[facility] [address] [place] [address]DrOtto Reis Lymphocytes/100 WBC (Bld) 7.2 % Critically low 20.5-60.0 [facility] Comment on above: Performed By: #### C BC ####[facility] Clytcytzes14[address] [place] [address]DrtOto Reis MANUAL DIFF REQ NO Normal [facility] Comment on above: Performed By: #### C BC ####[facility] Kdekhkrfrg6065 [place] [address]DrOtto Reis MCH (RBC) [Entitic mass] 29.0 pg Normal 26.7-34.0 [facility] Comment on above: Performed By: #### C BC ####[facility] Llnbcrofah[address] [place], [place] [address]DrOtto Reis MCHC (RBC) [Mass/Vol] 32.2 g/dL Normal 29.9-35.2 [facility] Comment on above: Performed By: #### C BC ####[facility] Mapoazhiis[address] [place], [place] [address]DrOtto Reis MCV (RBC) [Entitic vol] 90.1 fL Normal 81.0-99.0 [facility] Comment on above: Performed By: #### C BC ####[facility] Ryjcoudtuw[address] [place], [place] [address]DrOtto Reis MONO # 0.8 103/ul Normal 0.3-0.8 [facility] Comment on above: Performed By: #### C BC ####[facility] Icqumerqnm2[address] [place], [place] [address]DrOtto Reis Monocytes/100 WBC (Bld) 6.3 % Normal 1.7-12.0 [facility] Comment on above: Performed By: #### C BC ####[facility] Qkelhlyoeh[address] [place], [place] [address]DrOtto Reis NEUT # 10.7 103/ul Critically high 1.4-6.5 [facility] Comment on above: Performed By: #### C BC ####[facility] Abgckesoti[address] [place] [address]Dr. Swathi Chato Neutrophils/100 WBC (Bld) 83.8 % Critically high 43.0-75.0 [facility] Comment on above: Performed By: #### C BC ####[facility] Lagymldneo8925 [place] [address]Dr. Swathi Chato Platelet mean volume (Bld) [Entitic vol] 10.7 fL Normal 9.5-13.5 [facility] Comment on above: Performed By: #### C BC ####[facility] Uouduhprel5334 [place] [address]Dr. Swathi Reis PLT 324 103/ul Normal 150-450 [facility] Comment on above: Performed By: #### C BC ####[facility] Fxldwollsy2199 [place] [address]Dr. Swathi Reis RBC 3.72 106/ul Critically low 4.20-5.40 [facility] Comment on above: Performed By: #### C BC ####[facility] Vtomshrfkv6942 [place] [address]Dr. Swathi Reis WBC 12.8 103/ul Critically high 4.0-11.0 [facility] Comment on above: Performed By: #### C BC ####[facility] Celpowoqnl4330 [place] [id number] Reis DIGOXINon 08-21-2022 DIG 1.3 ng/mL Normal 0.9-2.0 [facility] Comment on above: Performed By: #### D IG ####[facility] Naxsvglcqz058[address] [place], [place] [address]DrOtto Reis POINT OF CARE GLUCOSEon 07-25 Glucose [Mass/Vol] 129 mg/dL Critically high 74-106 T [facility] Comment on above: Performed By: #### P OCGLUC ####[facility] Dsnzspvodq1132[address] [place], [place] [address]DrOtto Reis Glucose [Mass/Vol] 145 mg/dL Critically high 74-106 [facility] Comment on above: Performed By: #### P OCGLUC ####[facility] Dlpxsqadyw0282 [place] [address]Dr. Swathi Reis Glucose [Mass/Vol] 366 mg/dL Critically high 74-106 [facility] Comment on above: Performed By: #### P OCGLUC ####[facility] Eqcecteoxn85[address] [place] [address]Dr. Swathi Reis Glucose [Mass/Vol] 149 mg/dL Critically high 74-106 [facility] Comment on above: Performed By: #### P OCGLUC ####[facility] Yzbhxnawyu54[address] [place], [place] [address]Dr. Swathi Chato PROF 14(COMP METB)on 08-21- 022 Albumin [Mass/Vol] 2.4 g/dL Critically low 3.4-5.0 [facility] Comment on above: Performed By: #### C MP, BNP ####[facility] Ctstxncdyt0165[address] [place], [place] [address]Dr. Swathi Chato Albumin/Globulin [Mass ratio] 0.5 {ratio} [facility] Comment on above: Performed By: #### C MP, BNP ####[facility] Gtjjglszga3616[address] [place], [place] [address]Dr. Swathi Chato ALP [Catalytic activity/Vol] 93 U/L Normal 46-116 [facility] Comment on above: Performed By: #### C MP, BNP ####[facility] Sfeelbxmuf6006 [place] [address]Dr. Swathi Cahto ALT [Catalytic activity/Vol] 11 U/L Critically low 14-59 [facility] Comment on above: Performed By: #### C MP, BNP ####[facility] Dtbfqerdgb6337[address] [place], [place] [address]Dr. Swathi Chato Anion gap [Moles/Vol] 9.8 mmol/L Normal [facility] Comment on above: Performed By: #### C MP, BNP ####[facility] Hftedsognl[address] [place], [place] [id number]. Swathi Reis AST [Catalytic activity/Vol] 14 U/L Critically low 15-37 [facility] Comment on above: Performed By: #### C MP, BNP ####[facility] Bcrtgrpcae5623[address] [place], [place] [address]Dr. Swathi Reis Bilirubin [Mass/Vol] 0.6 mg/dL Normal 0.2-1.0 [facility] Comment on above: Performed By: #### C MP, BNP ####[facility] Qkicozwevg339[address] [place], [place] [address]Dr. Swathi Reis Calcium [Mass/Vol] 9.4 mg/dL Normal 8.5-10.1 [facility] [place] Comment on above: Performed By: #### C MP, BNP ####[facility] Xdzmzncrkg489[address] [place], [place] [address]Dr. Swathi Reis Chloride [Moles/Vol] 102 mmol/L Normal 98-107 [facility] Comment on above: Performed By: #### C MP, BNP ####[facility] Zagnpwfwaq9484[address] [place], [place] [address]Dr. Swathi Reis CO2 [Moles/Vol] 33.4 mmol/L Critically high 21.0-32.0 [facility] Comment on above: Performed By: #### C MP, BNP ####[facility] Gfvhwoqpsj0522[address] [place], [place] [address]Dr. Swathi Reis Creatinine [Mass/Vol] 1.79 mg/dL Critically high 0.55-1.02 [facility] Comment on above: Performed By: #### C MP, BNP ####[facility] Qjxuegxqgm639[address] [place], [place] [address]Dr. Swathi Reis EGFR-AF GRENADIAN 33 mL/min/1.73m2 Critically low >=60 [facility] Comment on above: Performed By: #### C MP, BNP ####[facility] Hcltebhsbk1676[address] [place], [place] [address]Dr. Swathi Reis EGFR-NON AF GRENADIAN 27 mL/min/1.73m2 Critically low >=60 [facility] Comment on above: Performed By: #### C MP, BNP ####[facility] Qghkxzrquo0469 [place] [address]Dr. Swathi Reis Globulin (S) [Mass/Vol] 4.9 g/dL Normal [facility] Comment on above: Performed By: #### C MP, BNP ####[facility] Oohqttehpo6084[address] [place], [place] [address]Dr. Swathi Reis Glucose [Mass/Vol] 121 mg/dL Critically high 74-106 [facility] Comment on above: Performed By: #### C MP, BNP ####[facility] Yxrxjsurjt079[address] [place], [place] [address]Dr. Swathi Reis Potassium [Moles/Vol] 3.2 mmol/L Critically low 3.5-5.1 [facility] Comment on above: Performed By: #### C MP, BNP ####[facility] Fhugwfzgkr6734[address] [place], [place] [address]Dr. Swathi Reis Protein [Mass/Vol] 7.3 g/dL Normal 6.4-8.2 [facility] [place] Comment on above: Performed By: #### C MP, BNP ####[facility] Dmenmkxbqx4516[address] [place], [place] [address]Dr. Swathi Reis Sodium [Moles/Vol] 142 mmol/L Normal 136-145 [facility] [place] Comment on above: Performed By: #### C MP, BNP ####[facility] Hkalejrnxn9732[address] [place], [place] [address]Dr. Swathi Reis Urea nitrogen [Mass/Vol] 32.0 mg/dL Critically high 7.0-18.0 [facility] Comment on above: Performed By: #### C MP, BNP ####[facility] Eewbsyybbd7829[address] [place], [place] [address]Dr. Swathi Reis Urea nitrogen/Creatinine [Mass ratio] 17.9 mg/mg Normal [facility] Comment on above: Performed By: #### C MP, BNP ####[facility] Tpxysfcwsj9430[address] [place], [place] [address]Dr. Swathi Reis BNPon 08-20-2022 Natriuretic peptide B (Bld) [Mass/Vol] 7302.0 pg/mL Critically high <=1,800.0 [facility] Comment on above: Performed By: #### C MP, BNP ####[facility] Fdcbqtbjvr4189[address] [place], [place] [address]Dr. Swathi Chato C. DIFF PCRon 08-20-2022 C. DIFFICILE PCR Positive Critically abnormal NEGATIVE [facility] Comment on above: Performed By: #### C DIFPOC ####[facility] Ubdpyymdfw286[address] [place], [place] [address]Dr. Swathi Reis CBC AUTO DIFFon 08-20-2022 BASO # 0.1 103/ul Normal 0.0-0.1 [facility] Comment on above: Performed By: #### C BC ####[facility] Gladvnnvou678[address] [place], [place] [address]Dr. Swathi Reis Basophils/100 WBC (Bld) 0.5 % Normal 0.2-2.0 [facility] Comment on above: Performed By: #### C BC ####[facility] Zlikovjmeo456[address] [place], [place] [address]Dr. Swathi Reis EO # 0.1 103/ul Normal 0.0-0.7 [facility] Comment on above: Performed By: #### C BC ####[facility] Jfghmrcylg[address] [place], [place] [address]Dr. Swathi Reis Eosinophils/100 WBC (Bld) 0.3 % Critically low 0.9-7.0 [facility] Comment on above: Performed By: #### C BC ####[facility] Quhviuszma454[address] [place], [place] [address]Dr. Swathi Reis Erythrocyte distribution width (RBC) [Ratio] 14.5 % Normal 11.0-15.0 [facility] Comment on above: Performed By: #### C BC ####[facility] Qacfcecljk668[address] [place], [place] [address]Dr. Swathi Reis Hematocrit (Bld) [Volume fraction] 31.4 % Critically low 36.0-48.0 [facility] Comment on above: Performed By: #### C BC ####[facility] Ektlphyizs2273 [place] [id number]. Swathi Reis Hemoglobin (Bld) [Mass/Vol] 10.3 g/dL Critically low 12.0-16.0 [facility] Comment on above: Performed By: #### C BC ####[facility] Mdhlnipsbs3323 [place] [address]Dr. Swathi Reis IG # 0.12 10e3/ul Critically high 0.00-0.03 The [facility] Comment on above: Performed By: #### C BC ####[facility] Ygeviempjs4358 [place] [address]Dr. Swathi Reis IG % 0.7 % Critically high 0.0-0.5 [facility] Comment on above: Performed By: #### C BC ####[facility] Zudanzionr5768 [place] [address]Dr. Swathi Reis LYMPH # 0.9 103/ul Critically low 1.2-3.8 [facility] Comment on above: Performed By: #### C BC ####[facility] Bqfgqxghsg5086 [place] [address]Dr. Swathi Reis Lymphocytes/100 WBC (Bld) 5.6 % Critically low 20.5-60.0 [facility] Comment on above: Performed By: #### C BC ####[facility] Nwrresiiov9603 [place] [address]Dr. Swathi Reis MANUAL DIFF REQ NO Normal [facility] Comment on above: Performed By: #### C BC ####[facility] Hrkmdpcwdq3983 [place] [address]Dr. Swathi Reis MCH (RBC) [Entitic mass] 29.3 pg Normal 26.7-34.0 [facility] Comment on above: Performed By: #### C BC ####[facility] Jiltrpafqr79[address] [place] [address]Dr. Swathi Reis MCHC (RBC) [Mass/Vol] 32.8 g/dL Normal 29.9-35.2 [facility] Comment on above: Performed By: #### C BC ####[facility] Vrpemkzqgv3915 [place] [phone]. Swathi Reis MCV (RBC) [Entitic vol] 89.5 fL Normal 81.0-99.0 [facility] Comment on above: Performed By: #### C BC ####[facility] Outgaljefq1800 [place] [address]Dr. Swathi Reis MONO # 0.9 103/ul Critically high 0.3-0.8 [facility] Comment on above: Performed By: #### C BC ####[facility] Ztolgtffrr7956 [place] [address]Dr. Swathi Reis Monocytes/100 WBC (Bld) 5.6 % Normal 1.7-12.0 [facility] Comment on above: Performed By: #### C BC ####[facility] Ojbloaagll8733 [place] [address]Dr. Swathi Reis NEUT # 14.1 103/ul Critically high 1.4-6.5 The [facility] Comment on above: Performed By: #### C BC ####[facility] Pqjhqcgwmy1397 [place] [address]Dr. Swathi Reis Neutrophils/100 WBC (Bld) 87.3 % Critically high 43.0-75.0 [facility] Comment on above: Performed By: #### C BC ####[facility] Vuthfjrbmc2969 [place] [phone]. Swathi Reis Platelet mean volume (Bld) [Entitic vol] 10.8 fL Normal 9.5-13.5 [facility] Comment on above: Performed By: #### C BC ####[facility] Nqxqjifwhi2074 [place] [phone]. Swathi Reis PLT 303 103/ul Normal 150-450 [facility] Comment on above: Performed By: #### C BC ####[facility] Gimurfhmqm8359 [place] [phone]. Swathi Reis RBC 3.51 106/ul Critically low 4.20-5.40 [facility] Comment on above: Performed By: #### C BC ####[facility] Tuquctvgpg9546 [place] [phone]. Swathi Reis WBC 16.2 103/ul Critically high 4.0-11.0 [facility] Comment on above: Performed By: #### C BC ####[facility] Esxkotcldj8941 [place] [address]Dr. Swathi Reis DIGOXINon 08-20-2022 DIG 1.2 ng/mL Normal 0.9-2.0 [facility] Comment on above: Performed By: #### D IG ####[facility] Maykmogroh5998 [place] [address]Dr. Swathi Chato POINT OF CARE GLUCOSEon 07-25 Glucose [Mass/Vol] 180 mg/dL Critically high 74-106 [facility] Comment on above: Performed By: #### P OCGLUC ####[facility] Pgoxcjfbzo7522 [place] [address]Dr. Inessatracy Reis Glucose [Mass/Vol] 115 mg/dL Critically high 74-106 [facility] Comment on above: Performed By: #### P OCGLUC ####[facility] Skqoqfuceb3405 [place] [address]Dr. Swathi Reis Glucose [Mass/Vol] 235 mg/dL Critically high 74-106 [facility] Comment on above: Performed By: #### P OCGLUC ####[facility] Thmrqjvlnu1297 [place] [address]Dr. Swathi Reis PROF 14(COMP METB)on 022 Albumin [Mass/Vol] 2.5 g/dL Critically low 3.4-5.0 [facility] Comment on above: Performed By: #### C MP, BNP ####[facility] Qrgctkyisu9697 [place] [address]Dr. Inessatracy Chato Albumin/Globulin [Mass ratio] 0.6 {ratio} Normal [facility] Comment on above: Performed By: #### C MP, BNP ####[facility] Swrwvzzuoq5298 [place] [address]Dr. Swathi Chato ALP [Catalytic activity/Vol] 69 U/L Normal 46-116 [facility] Comment on above: Performed By: #### C MP, BNP ####[facility] Nyekxynnqo0532 [place] [address]Dr. Swathi Reis ALT [Catalytic activity/Vol] 11 U/L Critically low 14-59 [facility] Comment on above: Performed By: #### C MP, BNP ####[facility] Ztlqstqihv1792 [place] [address]Dr. Swathi Reis Anion gap [Moles/Vol] 11.7 mmol/L Normal [facility] Comment on above: Performed By: #### C MP, BNP ####[facility] Dwdxzgvvfb7626 [place] [address]Dr. Swathi Reis AST [Catalytic activity/Vol] 18 U/L Normal 15-37 [facility] Comment on above: Performed By: #### C MP, BNP ####[facility] Kgxacyqlbm9225[address] [place], [place] [address]Dr. Swathi Chato Bilirubin [Mass/Vol] 1.0 mg/dL Normal 0.2-1.0 [facility] Comment on above: Performed By: #### C MP, BNP ####[facility] Pjnomcmzpv5274[address] [place], [place] [address]Dr. Swathi Reis Calcium [Mass/Vol] 9.2 mg/dL Normal 8.5-10.1 [facility] [place] Comment on above: Performed By: #### C MP, BNP ####[facility] Upovrkcsad7[address] [place], [place] [address]Dr. Swathi Reis Chloride [Moles/Vol] 104 mmol/L Normal 98-107 [facility] Comment on above: Performed By: #### C MP, BNP ####[facility] Avwbnsffoy3794 [place] [address]Dr. Swathi Reis CO2 [Moles/Vol] 32.7 mmol/L Critically high 21.0-32.0 [facility] Comment on above: Performed By: #### C MP, BNP ####[facility] Btsdvmmdnp6626[address] [place], [place] [address]Dr. Swathi Chato Creatinine [Mass/Vol] 1.86 mg/dL Critically high 0.55-1.02 [facility] Comment on above: Performed By: #### C MP, BNP ####[facility] Rewmdecdpo5[address] [place], [place] [address]Dr. Swathi Reis EGFR-AF GRENADIAN 32 mL/min/1.73m2 Critically low >=60 [facility] Comment on above: Performed By: #### C MP, BNP ####[facility] Voinemapjm166[address] [place], [place] [address]Dr. Swathi Reis EGFR-NON AF GRENADIAN 26 mL/min/1.73m2 Critically low >=60 [facility] Comment on above: Performed By: #### C MP, BNP ####[facility] Skomllkeai8218[address] [place], [place] [address]Dr. Inessatracy Chato Globulin (S) [Mass/Vol] 4.2 g/dL Normal [facility] Comment on above: Performed By: #### C MP, BNP ####[facility] Daaadrloew7694[address] [place], [place] [address]Dr. Inessatracy Chato Glucose [Mass/Vol] 135 mg/dL Critically high 74-106 [facility] Comment on above: Performed By: #### C MP, BNP ####[facility] Ytnlmiaexd542[address] [place], [place] [address]Dr. Inessatracy Chato Potassium [Moles/Vol] 3.4 mmol/L Critically low 3.5-5.1 [facility] Comment on above: Performed By: #### C MP, BNP ####[facility] Lxqvmovppa09[address] [place], [place] [address]Dr. Swathi Ries Protein [Mass/Vol] 6.7 g/dL Normal 6.4-8.2 [facility] Comment on above: Performed By: #### C MP, BNP ####[facility] Fxquwvmxih300[address] [place], [place] [address]Dr. Inessatracy Reis Sodium [Moles/Vol] 145 mmol/L Normal 136-145 [facility] [place] Comment on above: Performed By: #### C MP, BNP ####[facility] Psknjbjzjf3267[address] [place], [place] [address]Dr. Swathi Reis Urea nitrogen [Mass/Vol] 29.0 mg/dL Critically high 7.0-18.0 [facility] Comment on above: Performed By: #### C MP, BNP ####[facility] Xstbqnowtc6326 [place] [address]Dr. Swathi Reis Urea nitrogen/Creatinine [Mass ratio] 15.6 mg/mg Normal [facility] Comment on above: Performed By: #### C MP, BNP ####[facility] Uvjvnsyvoo[address] [place], [place] [address]Dr. Swathi Reis XR CHEST 1 Von 08-20-2022 XR CHEST 1 V Normal [facility] BLOOD GASES BTYon 08-19-2022 02 MODE BIPAP Normal [facility] Comment on above: Performed By: #### A BG ####[facility] Tmdxnnqgxk25[address] [place], [place] [address]Dr. Swahti Reis ALLENS TEST Positive Normal [facility] Comment on above: Performed By: #### A BG ####[facility] Mdcgxdhtlw400[address] [place], [place] [address]Dr. Swathi Reis Base excess Calc (Bld) [Moles/Vol] 0.8 mmol/L Normal -2.0-2.0 [facility] Comment on above: Performed By: #### A BG ####[facility] Cukjdujqip47[address] [place], [place] [address]Dr. Swathi Reis BIPAP PRESSURE 12/6 Normal [facility] Comment on above: Performed By: #### A BG ####[facility] Apojqnaihz8912[address] [place], [place] [address]Dr. Swathi Reis CPAP Normal [facility] Comment on above: Performed By: #### A BG ####[facility] Xmhezazfzs9567[address] [place], [place] [address]Dr. Swathi Reis FIO2 90.00 % Normal [facility] Comment on above: Performed By: #### A BG ####[facility] Dlgcdtkbna[address] [place], [place] [address]Dr. Swathi Reis HCO3 (Bld) [Moles/Vol] 25.9 mmol/L Normal 22.0-26.0 [facility] Comment on above: Performed By: #### A BG ####[facility] Srnxoaxxcx3635 [place] [address]Dr. Swathi Reis LPM [facility] Comment on above: Performed By: #### A BG ####[facility] Egnmhktwhe7738[address] [place], [place] [address]Dr. Swathi Reis MINUTE VOLUME Normal [facility] Comment on above: Performed By: #### A BG ####[facility] Ccskkzduro59[address] [place], [place] [address]Dr. Swathi Reis Oxygen (Bld) [Partial pressure] 95.0 mm[Hg] Normal 80.0-100.0 [facility] Comment on above: Performed By: #### A BG ####[facility] Kmygbaiudx9879[address] [place], [place] [address]Dr. Swathi Reis Oxygen saturation in Blood 97.7 % Normal 95.0-100.0 [facility] Comment on above: Performed By: #### A BG ####[facility] Unrefncetv8538[address] [place], [place] [address]Dr. Swathi Reis PCO2 44.2 mmHg Normal 35.0-45.0 [facility] Comment on above: Performed By: #### A BG ####[facility] Cjfrwueopp206[address] [place], [place] [address]Dr. Swathi Reis PEEP [facility] Comment on above: Performed By: #### A BG ####[facility] Rwyhnchuka3854[address] [place], [place] [address]Dr. Swathi Reis pH (Bld) 7.377 [pH] Normal 7.350-7.450 [facility] Comment on above: Performed By: #### A BG ####[facility] Kbtbnflhvs6[address] [place], [place] [address]Dr. Swahti Reis PIP [facility] Comment on above: Performed By: #### A BG ####[facility] Plifciemyt8586[address] [place], [place] [address]Dr. Swathi Reis PS [facility] Comment on above: Performed By: #### A BG ####[facility] Dctglehcrc0394 [place] [address]Dr. Swathi Reis PUNCTURE SITE RR Normal [facility] Comment on above: Performed By: #### A BG ####[facility] Vovfvfpaoy7284 [place] [address]Dr. Swathi Reis RATE Normal [facility] Comment on above: Performed By: #### A BG ####[facility] Aqgsqijcza5185 [place] [address]Dr. Swathi Reis VENT MODE Normal [facility] Comment on above: Performed By: #### A BG ####[facility] Rnmkdkfssk4370 [place] [address]Dr. Swathi Reis [place] [facility] Comment on above: Performed By: #### A BG ####[facility] Taceqwnhft2[address] [place], [place] [address]Dr. Swathi Reis BNPon 08-19-2022 Natriuretic peptide B (Bld) [Mass/Vol] 2862.0 pg/mL Critically high <=1,800.0 [facility] Comment on above: Performed By: #### L IPA, BNP ####[facility] [address] [place], [place] [address]Dr. Swathi Reis CARDIAC TRINA 3-6on 2 CK [Catalytic activity/Vol] 25 U/L Critically low 26-192 [facility] Comment on above: Performed By: #### C MREP ####[facility] Aycewtcxne[address] [place], [place] [address]Dr. Swathi Reis CK.MB [Mass/Vol] 0.57 ng/mL Normal <=3.60 [facility] Comment on above: Performed By: #### C MREP ####[facility] Urcetgrnva[address] [place], [place] [address]Dr. Swathi Reis HSTROP 16.6 pg/mL Normal 4.0-51.3 [facility] Comment on above: Result Comment: CUT- OFF POINTS HAVE BEEN ESTABLISHED BASED ON THE FOURTH UNIVERSAL DEFINITIONS OF MYOCARDIALINFARCTION. THE UPPER REFERENCE LIMIT (URL) OF TROPONIN, DEFINED THE 99TH PERCENTILE OFcTnI DISTRIBUTION IN A REFERENCE POPULATION, HAS BEEN CONFIRMED THE DECISION THRESHOLDFOR HI DIAGNOSIS. Performed By: #### C MREP ####[facility] [address] [place] [address]Dr. Swathi Reis CK [Catalytic activity/Vol] 26 U/L Normal 26-192 [facility] Comment on above: Performed By: #### C MREP ####[facility] [address] [place] [address]Dr. Swathi Reis CK.MB [Mass/Vol] 0.59 ng/mL Normal <=3.60 [facility] Comment on above: Performed By: #### C MREP ####[facility] Ecylvhuebj[address] [place], [place] [address]Dr. Swathi Reis HSTROP 16.3 pg/mL Normal 4.0-51.3 [facility] Comment on above: Result Comment: CUT- OFF POINTS HAVE BEEN ESTABLISHED BASED ON THE FOURTH UNIVERSAL DEFINITIONS OF MYOCARDIALINFARCTION. THE UPPER REFERENCE LIMIT (URL) OF TROPONIN, DEFINED THE 99TH PERCENTILE OFcTnI DISTRIBUTION IN A REFERENCE POPULATION, HAS BEEN CONFIRMED THE DECISION THRESHOLDFOR HI DIAGNOSIS. Performed By: #### C MREP ####[facility] Pbyvrhxchh[address] [place], [place] [address]Dr. Inessatracy Reis CBC AUTO DIFFon 08-19-2022 BASO # 0.1 103/ul Normal 0.0-0.1 [facility] Comment on above: Performed By: #### C BC ####[facility] Msnonzqkay15[address] [place], [place] [address]Dr. Swathi Reis Basophils/100 WBC (Bld) 0.4 % Normal 0.2-2.0 [facility] Comment on above: Performed By: #### C BC ####[facility] Spptekgoro[address] [place], [place] [address]DrOtto Reis EO # 0.1 103/ul Normal 0.0-0.7 [facility] Comment on above: Performed By: #### C BC ####[facility] Kxqwwjtzyp[address] [place], [place] [address]Dr. Swathi Reis Eosinophils/100 WBC (Bld) 0.4 % Critically low 0.9-7.0 [facility] Comment on above: Performed By: #### C BC ####[facility] Aqbbcirufq[address] [place], [place] [address]Dr. Swathi Reis Erythrocyte distribution width (RBC) [Ratio] 14.2 % Normal 11.0-15.0 [facility] Comment on above: Performed By: #### C BC ####[facility] Zlsaxoyqnx24[address] [place], [place] [address]Dr. Swathi Reis Hematocrit (Bld) [Volume fraction] 34.4 % Critically low 36.0-48.0 [facility] Comment on above: Performed By: #### C BC ####[facility] Wmcxkribth6[address] [place], [place] [address]Dr. Swathi Reis Hemoglobin (Bld) [Mass/Vol] 11.2 g/dL Critically low 12.0-16.0 [facility] Comment on above: Performed By: #### C BC ####[facility] Lonjwasyya[address] [place], [place] [address]Dr. Swathi Reis IG # 0.08 10e3/ul Critically high 0.00-0.03 [facility] Comment on above: Performed By: #### C BC ####[facility] Pnjurudfqf[address] [place], [place] [address]Dr. Swathi Reis IG % 0.4 % Normal 0.0-0.5 [facility] Comment on above: Performed By: #### C BC ####[facility] Lvdbvjthid[address] [place], [place] [address]Dr. Swathi Reis LYMPH # 0.8 103/ul Critically low 1.2-3.8 [facility] Comment on above: Performed By: #### C BC ####[facility] Z[address]qyqlbkea[address] [place], [place] [address]Dr. Swathi Reis Lymphocytes/100 WBC (Bld) 4.1 % Critically low 20.5-60.0 [facility] Comment on above: Performed By: #### C BC ####[facility] [address] [place] [id number]. Swathi Reis MANUAL DIFF REQ NO Normal [facility] Comment on above: Performed By: #### C BC ####[facility] [address] [place] [phone]. Swathi Reis MCH (RBC) [Entitic mass] 29.1 pg Normal 26.7-34.0 [facility] Comment on above: Performed By: #### C BC ####[facility] [address]tkc[address] [place] [address]Dr. Swathi Reis MCHC (RBC) [Mass/Vol] 32.6 g/dL Normal 29.9-35.2 [facility] Comment on above: Performed By: #### C BC ####[facility] [address] [place] [address]Dr. Swathi Chato MCV (RBC) [Entitic vol] 89.4 fL Normal 81.0-99.0 [facility] Comment on above: Performed By: #### C BC ####[facility] En[address]ysr[address] [place] [address]Dr. Swathi Chato MONO # 1.1 103/ul Critically high 0.3-0.8 [facility] Comment on above: Performed By: #### C BC ####[facility] U[address]zz[address] [place] [address]Dr. Inessatracy Reis Monocytes/100 WBC (Bld) 5.8 % Normal 1.7-12.0 [facility] Comment on above: Performed By: #### C BC ####[facility] Eg[address] [place] [address]Dr. Inessatracy Chato NEUT # 16.4 103/ul Critically high 1.4-6.5 [facility] Comment on above: Performed By: #### C BC ####[facility] F[address] [place] [phone]. Swathi Reis Neutrophils/100 WBC (Bld) 88.9 % Critically high 43.0-75.0 [facility] Comment on above: Performed By: #### C BC ####[facility] [address] [place], [place] [address]Cg. Swathi Reis Platelet mean volume (Bld) [Entitic vol] 10.6 fL Normal 9.5-13.5 [facility] Comment on above: Performed By: #### C BC ####[facility] Fan[address]urg[address] [place], [place] [address]Cs. Swathi Reis PLT 366 103/ul Normal 150-450 [facility] Comment on above: Performed By: #### C BC ####[facility] I[address]podre[address] [place], [place] [address]Hn. Swathi Reis RBC 3.85 106/ul Critically low 4.20-5.40 [facility] Comment on above: Performed By: #### C BC ####[facility] [address] [place], [place] [address]Uz. Swathi Reis WBC 18.4 103/ul Critically high 4.0-11.0 [facility] Comment on above: Performed By: #### C BC ####[facility] [address] [place] [phone]. Swathi Reis CTA CHEST WO W CONon 022 CTA CHEST WO W CON Normal [facility] CULTURE BLOODon 08-19-2022 Microscopic examination of blood, culture Culture Observations: NO GROWTH AT 5 DAYS. Normal [facility] Comment on above: Performed By: #### B LDCX2 ####[facility] [address] [place] [phone]. Swathi Reis Microscopic examination of blood, culture Culture Observations: NO GROWTH AT 5 DAYS. Normal [facility] Comment on above: Performed By: #### B LDCX1 ####[facility] Av[address] [place] [phone]. Swathi Reis Covid-19 PCR ([facility])on 07-25 SARS-CoV-2 (COVID-19) RNA ÓSCAR+probe Ql (Unsp spec) Not detected Normal NOT DETECTED [facility] Comment on above: Result Comment: [...] for this test is supported by the [place] of [employer] and Human Service's declaration that [...] be used). Performed By: #### C VDTBH ####[facility] Nhpgaf[address] [place], [place] [address]Dr. Swathi Reis Performed By: #### R SPLUS ####[facility] Qxchqhtzgq[address] [place], [place] [address]Dr. Swathi Reis LACTATE/LACTIC ACIDon 2021 Lactate [Moles/Vol] 1.5 mmol/L Normal 0.4-1.9 [facility] Comment on above: Performed By: #### L ACT ####[facility] Ssgjckmqyp[address] [place], [place] [address]Dr. Swathi Reis LIPASEon 08-19-2022 Lipase [Catalytic activity/Vol] 130.0 U/L Normal 73.0-393.0 [facility] Comment on above: Performed By: #### L IPA, BNP ####[facility] Lkmiptuwse[address] [place], [place] [address]Dr. Swathi Reis POINT OF CARE GLUCOSEon 07-25 Glucose [Mass/Vol] 222 mg/dL Critically high 74-106 [facility] Comment on above: Performed By: #### P OCGLUC ####[facility] Dchyxeuucf[address] [place], [place] [address]Dr. Swathi Reis Glucose [Mass/Vol] 166 mg/dL Critically high 74-106 [facility] Comment on above: Performed By: #### P OCGLUC ####[facility] [address] [place] [address]Dr. Swathi Reis Glucose [Mass/Vol] 213 mg/dL Critically high 74-106 T [facility] Comment on above: Performed By: #### P OCGLUC ####[facility] Ezxuneggno[address] [place], [place] [address]Dr. Inessatracy Reis RESPIRATORY PANEL PLUSon Adenovirus Not detected Normal NOT DETECTED [facility] Comment on above: Performed By: #### R SPLUS ####[facility] Fmvivmrecu[address] [place], [place] [address]Dr. Inessatracy Reis B. Parapertusis Not detected Normal NOT DETECTED [facility] Comment on above: Performed By: #### R SPLUS ####[facility] Akwooclpap[address] [place], [place] [address]Dr. Swathi Reis B. Pertussis Not detected Normal NOT DETECTED The [facility] Comment on above: Performed By: #### R SPLUS ####[facility] Qzsrjxjaqn[address] [place], [place] [address]Dr. Swathi Reis Chlamydia Pneumoniae Not detected Normal NOT DETECTED The [facility] Comment on above: Performed By: #### R SPLUS ####[facility] Gnitdzfaic19[address] [place], [place] [address]Dr. Swathi Reis Coronavirus 229E Not detected Normal NOT DETECTED The [facility] Comment on above: Performed By: #### R SPLUS ####[facility] Zcvchtpybc[address] [place], [place] [address]Dr. Swathi Reis Coronavirus HKU1 Not detected Normal NOT DETECTED The [facility] Comment on above: Performed By: #### R SPLUS ####[facility] Bfpovdxbnk[address] [place], [place] [address]Dr. Swathi Reis Coronavirus NL63 Not detected Normal NOT DETECTED The [facility] Comment on above: Performed By: #### R SPLUS ####[facility] Gxxkzpxtzp[address] [place], [place] [address]Dr. Inessatracy Reis Coronavirus OC43 Not detected Normal NOT DETECTED The [facility] Comment on above: Performed By: #### R SPLUS ####[facility] W[address]bi[address] [place] [address]Dr. Swathi Reis Influenza A H1 2009 Not detected Normal NOT DETECTED [facility] Comment on above: Performed By: #### R SPLUS ####[facility] Ncnplyparz7[address] [place], [place] [address]Dr. Swathi Reis Influenza A H3 Not detected Normal NOT DETECTED The [facility] Comment on above: Performed By: #### R SPLUS ####[facility] Fnwquatsus9157[address] [place], [place] [address]Dr. Yitracy Reis Influenza B Not detected Normal NOT DETECTED The [facility] Comment on above: Performed By: #### R SPLUS ####[facility] Ceigjagonl[address] [place], [place] [address]Dr. Swathi Reis Metapneumovirus Not detected Normal NOT DETECTED The [facility] Comment on above: Performed By: #### R SPLUS ####[facility] Erxopupekg[address] [place], [place] [address]Dr. Swathi Reis Mycoplas. Pneumoniae Not detected Normal NOT DETECTED The [facility] Comment on above: Performed By: #### R SPLUS ####[facility] Sczsxjwxoo5[address] [place], [place] [address]Dr. Swathi Reis Parainfluenza 1 Not detected Normal NOT DETECTED [facility] Comment on above: Performed By: #### R SPLUS ####[facility] Bjzlhqdjdt7[address] [place], [place] [address]Dr. Swathi Reis Parainfluenza 2 Not detected Normal NOT DETECTED [facility] Comment on above: Performed By: #### R SPLUS ####[facility] Oarzprojub40[address] [place], [place] [address]Dr. Swathi Reis Parainfluenza 3 Not detected Normal NOT DETECTED [facility] Comment on above: Performed By: #### R SPLUS ####[facility] Umxvtdgtbq[address] [place], [place] [address]Dr. Swathi Reis Parainfluenza 4 Not detected Normal NOT DETECTED [facility] Comment on above: Performed By: #### R SPLUS ####[facility] [address] [place] [address]Dr. Swathi Reis Rhino/Enterovirus Not detected Normal NOT DETECTED [facility] Comment on above: Performed By: #### R SPLUS ####[facility] [address]citqn[address] [place] [address]Dr. Swathi Reis RP2 Header 1 RESPIRATORY PANEL: VIRUSES Normal [facility] Comment on above: Performed By: #### R SPLUS ####[facility] Zzyuutoxho[address] [place], [place] [address]Dr. Swathi Reis RP2 Header 2 RESPIRATORY PANEL: BACTERIA Normal [facility] Comment on above: Performed By: #### R SPLUS ####[facility] Euynmzxvdg8[address] [place], [place] [address]Dr. Swathi Reis RSV Not detected Normal NOT DETECTED [facility] Comment on above: Performed By: #### R SPLUS ####[facility] Tzflsqtuyu[address] [place], [place] [address]Dr. Swathi Reis XR CHEST 1 Von 08-19-2022 XR CHEST 1 V Normal [facility] BNPon 08-18-2022 Natriuretic peptide B (Bld) [Mass/Vol] 2955.0 pg/mL Critically high <=1,800.0 [facility] Comment on above: Performed By: #### B JD EDWARDS DEVELOPER ####[facility] Ffqpckbtzl[address] [place], [place] [address]Dr. Swathi Reis CARDIAC TRINA ADMITon 022 CK [Catalytic activity/Vol] 26 U/L Normal 26-192 [facility] Comment on above: Performed By: #### B RACQUEL APONTE ####[facility] Jrmcrymami[address] [place], [place] [address]Dr. Swathi Reis CK.MB [Mass/Vol] 0.79 ng/mL Normal <=3.60 [facility] Comment on above: Performed By: #### B RACQUEL APONTE ####[facility] X[address]cmzvahvb[address] [place], [place] [address]Dr. Swathi Reis HSTROP 16.0 pg/mL Normal 4.0-51.3 [facility] Comment on above: Result Comment: CUT- OFF POINTS HAVE BEEN ESTABLISHED BASED ON THE FOURTH UNIVERSAL DEFINITIONS OF MYOCARDIALINFARCTION. THE UPPER REFERENCE LIMIT (URL) OF TROPONIN, DEFINED THE 99TH PERCENTILE OFcTnI DISTRIBUTION IN A REFERENCE POPULATION, HAS BEEN CONFIRMED THE DECISION THRESHOLDFOR HI DIAGNOSIS. Performed By: #### B RACQUEL APONTE ####[facility] [address] [place] [address]Dr. Swathi Reis GUANACO 47 ng/mL Normal 9-82 [facility] Comment on above: Performed By: #### B FAY, RACQUEL ####[facility] Qraseqrsrk3[address] [place], [place] [address]Dr. Swathi Reis CBC AUTO DIFFon 08-18-2022 BASO # 0.1 103/ul Normal 0.0-0.1 [facility] Comment on above: Performed By: #### C BC ####[facility] Hjqrodmbpe[address] [place], [place] [address]Dr. Swathi Reis Basophils/100 WBC (Bld) 0.4 % Normal 0.2-2.0 [facility] Comment on above: Performed By: #### C BC ####[facility] Ldqldazhye[address] [place], [place] [address]Dr. Swathi Reis EO # 0.1 103/ul Normal 0.0-0.7 [facility] Comment on above: Performed By: #### C BC ####[facility] Gkohkedvzr[address] [place], [place] [address]Dr. Swathi Reis Eosinophils/100 WBC (Bld) 0.9 % Normal 0.9-7.0 [facility] Comment on above: Performed By: #### C BC ####[facility] Hbjdbnidhs39[address] [place], [place] [address]Dr. Swathi Reis Erythrocyte distribution width (RBC) [Ratio] 14.2 % Normal 11.0-15.0 [facility] Comment on above: Performed By: #### C BC ####[facility] Qsmqgpzqpv[address] [place], [place] [address]Dr. Swathi Reis Hematocrit (Bld) [Volume fraction] 34.1 % Critically low 36.0-48.0 [facility] Comment on above: Performed By: #### C BC ####[facility] [address] [place] [phone]. Swathi Reis Hemoglobin (Bld) [Mass/Vol] 11.2 g/dL Critically low 12.0-16.0 [facility] Comment on above: Performed By: #### C BC ####[facility] [address] [place] [address]Dr. Swathi Reis IG # 0.06 10e3/ul Critically high 0.00-0.03 [facility] Comment on above: Performed By: #### C BC ####[facility] Obbkvvtxmy[address] [place] [address]Dr. Swathi Reis IG % 0.4 % Normal 0.0-0.5 [facility] Comment on above: Performed By: #### C BC ####[facility] Dfncsgapxs[address] [place], [place] [address]Dr. Swathi Reis LYMPH # 1.4 103/ul Normal 1.2-3.8 [facility] Comment on above: Performed By: #### C BC ####[facility] [address]kodgygtte[address] [place] [address]Dr. Swathi Reis Lymphocytes/100 WBC (Bld) 10.1 % Critically low 20.5-60.0 [facility] Comment on above: Performed By: #### C BC ####[facility] R[address]vbal[address] [place] [address]Dr. Swathi Reis MANUAL DIFF REQ NO Normal [facility] Comment on above: Performed By: #### C BC ####[facility] [address]xns[address] [place] [phone]. Swathi Reis MCH (RBC) [Entitic mass] 29.2 pg Normal 26.7-34.0 [facility] Comment on above: Performed By: #### C BC ####[facility] Vz[address]qxxlbw22[address] [place] [phone]. Swathi Reis MCHC (RBC) [Mass/Vol] 32.8 g/dL Normal 29.9-35.2 [facility] Comment on above: Performed By: #### C BC ####[facility] Bnphuqeujc[address] [place] [phone]. Swathi Reis MCV (RBC) [Entitic vol] 89.0 fL Normal 81.0-99.0 [facility] Comment on above: Performed By: #### C BC ####[facility] Dvcbnktprm5[address] [place] [phone] Swathi Reis MONO # 1.1 103/ul Critically high 0.3-0.8 [facility] Comment on above: Performed By: #### C BC ####[facility] Ufxbwbkwtq20[address] [place] [phone]. Swathi Reis Monocytes/100 WBC (Bld) 8.3 % Normal 1.7-12.0 [facility] Comment on above: Performed By: #### C BC ####[facility] Pu[address]im[address] [place], [place] [address]Dr. Swathi Reis NEUT # 11.0 103/ul Critically high 1.4-6.5 [facility] Comment on above: Performed By: #### C BC ####[facility] Jdvvprzobg4[address] [place] [phone]. Swathi Reis Neutrophils/100 WBC (Bld) 79.9 % Critically high 43.0-75.0 [facility] Comment on above: Performed By: #### C BC ####[facility] Htzfpxseth[address] [place] [phone]. Swathi Chato Platelet mean volume (Bld) [Entitic vol] 10.7 fL Normal 9.5-13.5 [facility] Comment on above: Performed By: #### C BC ####[facility] Ehtwtvovub[address] [place] [phone]. Swathi Chato PLT 408 103/ul Normal 150-450 [facility] Comment on above: Performed By: #### C BC ####[facility] Estxlyloyx85[address] [place] [phone]. Swathi Reis RBC 3.83 106/ul Critically low 4.20-5.40 [facility] Comment on above: Performed By: #### C BC ####[facility] [address]j35[address] [place], [place] [address]Ct. Swathi Reis WBC 13.8 103/ul Critically high 4.0-11.0 [facility] Comment on above: Performed By: #### C BC ####[facility] Bq[address]um[address] [place], [place] [address]Tr. Swathi Reis Covid-19 PCR ([facility])on 07-25 SARS-CoV-2 (COVID-19) RNA ÓSCAR+probe Ql (Unsp spec) Not detected Normal NOT DETECTED [facility] Comment on above: Result Comment: [...] for this test is supported by the [place] of Health and Human Service's declaration that [...] be used). Performed By: #### C VDTBH ####[facility] Sqyp[address]omxz[address] [place] [phone]. Swathi Reis D-DIMERon 08-18-2022 D-DIMER 1.83 mg/L FEU Critically high <=0.59 [facility] Comment on above: Performed By: #### D DIM ####[facility] Zq[address]zevvn26[address] [place] [phone]. Swathi Reis D-DIMER COMMENTS SEE BELOW Normal [facility] Comment on above: Result Comment: Incr [...] generalized hospitalization. Performed By: #### D DIM ####[facility] Catqqvutqi[address] [place], [place] [address]Dr. Inessatracy Chato INFLUENZA A AND B AGon 08-18 INFLUENZA A AG Negative Normal NEGATIVE SEE COMMENT [facility] Comment on above: Performed By: #### R SV, INFLUAB ####[facility] Aboubflyoo[address] [place], [place] [address]Dr. Swathi Reis INFLUENZA B AG Negative Normal NEGATIVE SEE COMMENT [facility] Comment on above: Performed By: #### R SV, INFLUAB ####[facility] Rvisxsxkbc[address] [place], [place] [address]Dr. Swathi [facility] INFLUPOSH SEE BELOW Normal [facility] Comment on above: Result Comment: NOTE : Live attenuated influenzae vaccine viruses can cause a positive result for a rapid influenza diagnostic test if administered up to 7 days prior to rapid testing. Performed By: #### R SV, INFLUAB ####[facility] H[address]my[address]da[address] [place], [place] [address]Dr. Swathi Reis INFLUPOSHB SEE BELOW Normal [facility] Comment on above: Result Comment: NOTE : Live attenuated influenzae vaccine viruses can cause a positive result for a rapid influenza diagnostic test if administered up to 7 days prior to rapid testing. Performed By: #### R SV, INFLUAB ####[facility] Adidijpqav[address] [place], [place] [address]Dr. Swathi Reis INTERNAL CONTROLS Within Normal Limits Normal Wi thin Normal Limits [facility] Comment on above: Performed By: #### R SV, INFLUAB ####[facility] Ruufavxwve[address] [place], [place] [address]Dr. Swathi Reis LACTATE/LACTIC ACIDon 2021 Lactate [Moles/Vol] 1.9 mmol/L Normal 0.4-1.9 [facility] Comment on above: Performed By: #### L ACT ####[facility] [address] [place] [address]Dr. Inessatracy Reis PROF CHEM 8 (BAS METB)on Anion gap [Moles/Vol] 13.9 mmol/L Normal [facility] Comment on above: Performed By: #### B FAY, RACQUEL ####[facility] Mzymzzctxk[address] [place], [place] [address]Dr. Swathi Reis Calcium [Mass/Vol] 9.9 mg/dL Normal 8.5-10.1 [facility] [place] Comment on above: Performed By: #### B RACQUEL APONTE ####[facility] Ppmlvpnrzy[address] [place], [place] [address]Dr. Swathi Reis Chloride [Moles/Vol] 102 mmol/L Normal 98-107 [facility] Comment on above: Performed By: #### B FAY, RACQUEL ####[facility] Krsflxovtj[address] [place], [place] [address]Dr. Swathi Reis CO2 [Moles/Vol] 29.6 mmol/L Normal 21.0-32.0 [facility] Comment on above: Performed By: #### B RACQUEL APONTE ####[facility] Omtanhlhpp[address] [place], [place] [address]Dr. Swathi Reis Creatinine [Mass/Vol] 1.61 mg/dL Critically high 0.55-1.02 [facility] Comment on above: Performed By: #### B FAY, RACQUEL ####[facility] Xpwvpredkm75[address] [place], [place] [address]Dr. Swathi Reis EGFR-AF GRENADIAN 38 mL/min/1.73m2 Critically low >=60 [facility] Comment on above: Performed By: #### B RACQUEL APONTE ####[facility] Moxezduxzy16[address] [place], [place] [address]Dr. Swathi Reis EGFR-NON AF GRENADIAN 31 mL/min/1.73m2 Critically low >=60 [facility] Comment on above: Performed By: #### B RACQUEL APONTE ####[facility] Pqvzmxqkus[address] [place], [place] [address]Dr. Swathi Reis Glucose [Mass/Vol] 192 mg/dL Critically high 74-106 [facility] Comment on above: Performed By: #### B MP, CMADM ####[facility] Dplpzklgpt4[address] [place], [place] [address]Dr. Swathi Reis Potassium [Moles/Vol] 4.5 mmol/L Normal 3.5-5.1 [facility] Comment on above: Performed By: #### B MP, CMADM ####[facility] Yxkcifjcsh16[address] [place], [place] [address]Dr. Swathi Reis Sodium [Moles/Vol] 141 mmol/L Normal 136-145 [facility] [place] Comment on above: Performed By: #### B MP, CMADM ####[facility] Vgvyhywcne[address]23[address] [place], [place] [address]Dr. Swathi Reis Urea nitrogen [Mass/Vol] 27.0 mg/dL Critically high 7.0-18.0 [facility] Comment on above: Performed By: #### B MP, CMADM ####[facility] Inamafrrcn[address]16[address] [place], [place] [address]Dr. Swathi Reis Urea nitrogen/Creatinine [Mass ratio] 16.8 mg/mg Normal [facility] Comment on above: Performed By: #### B MP, CMADM ####[facility] Uyyydnozit28[address] [place], [place] [address]Dr. Swathi Reis RSVon 08-18-2022 RSV AG Negative Normal NEGATIVE [facility] Comment on above: Performed By: #### R SV, INFLUAB ####[facility] Wllsxpchul225[address] [place], [place] [address]Dr. Swathi Reis BNPon 07-12-2022 Natriuretic peptide B (Bld) [Mass/Vol] 5375.0 pg/mL Critically high <=1,800.0 [facility] Comment on above: Performed By: #### B JD EDWARDS DEVELOPER, CMP ####[facility] Cqyvkagdpe8[address] [place], [place] [address]Dr. Swathi Reis CBC AUTO DIFFon 07-12-2022 BASO # 0.1 103/ul Normal 0.0-0.1 [facility] Comment on above: Performed By: #### C BC ####[facility] Gkrunjshqt[address] [place] [address]Dr. Swathi Chato Basophils/100 WBC (Bld) 0.7 % Normal 0.2-2.0 [facility] Comment on above: Performed By: #### C BC ####[facility] Tennspymjs4678[address] [place], [place] [address]Dr. Swathi Reis EO # 0.3 103/ul Normal 0.0-0.7 [facility] Comment on above: Performed By: #### C BC ####[facility] Fbxboswify[address] [place], [place] [address]Dr. Swathi Reis Eosinophils/100 WBC (Bld) 3.2 % Normal 0.9-7.0 [facility] Comment on above: Performed By: #### C BC ####[facility] Btdphrusno8[address] [place], [place] [address]Dr. Swathi Reis Erythrocyte distribution width (RBC) [Ratio] 13.3 % Normal 11.0-15.0 [facility] Comment on above: Performed By: #### C BC ####[facility] Xuznlssyhu39[address] [place], [place] [address]Dr. Swathi Chato Hematocrit (Bld) [Volume fraction] 29.9 % Critically low 36.0-48.0 [facility] Comment on above: Performed By: #### C BC ####[facility] Umoqkzwsle[address] [place], [place] [address]Dr. Swathi Chato Hemoglobin (Bld) [Mass/Vol] 9.7 g/dL Critically low 12.0-16.0 [facility] Comment on above: Performed By: #### C BC ####[facility] Ofsdnzkypu3[address] [place], [place] [address]Dr. Swathi Reis IG # 0.05 10e3/ul Critically high 0.00-0.03 [facility] Comment on above: Performed By: #### C BC ####[facility] Wizcaxndpg[address] [place], [place] [address]DrOtto Reis IG % 0.5 % Normal 0.0-0.5 [facility] Comment on above: Performed By: #### C BC ####[facility] Irpwmtkgzd7[address] [place] [address]DrOtto Reis LYMPH # 1.5 103/ul Normal 1.2-3.8 [facility] Comment on above: Performed By: #### C BC ####[facility] Y[address]cb[address] [place] [id number] Reis Lymphocytes/100 WBC (Bld) 14.0 % Critically low 20.5-60.0 [facility] Comment on above: Performed By: #### C BC ####[facility] Jxuliuebyt[address] [place] [address]DrOtto Reis MANUAL DIFF REQ NO Normal [facility] Comment on above: Performed By: #### C BC ####[facility] Awknpjfuyp[address] [place], [place] [address]DrOtto Reis MCH (RBC) [Entitic mass] 30.1 pg Normal 26.7-34.0 [facility] Comment on above: Performed By: #### C BC ####[facility] Ukdfrseduq9[address] [place], [place] [address]DrOtto Reis MCHC (RBC) [Mass/Vol] 32.4 g/dL Normal 29.9-35.2 [facility] Comment on above: Performed By: #### C BC ####[facility] Wbtakieysu46[address] [place], [place] [address]DrOtto Reis MCV (RBC) [Entitic vol] 92.9 fL Normal 81.0-99.0 [facility] Comment on above: Performed By: #### C BC ####[facility] Lsvmuartsb[address] [place], [place] [address]DrOtto Reis MONO # 1.2 103/ul Critically high 0.3-0.8 [facility] Comment on above: Performed By: #### C BC ####[facility] Spcxrfrcrg[address] [place] [phone] Reis Monocytes/100 WBC (Bld) 11.1 % Normal 1.7-12.0 [facility] Comment on above: Performed By: #### C BC ####[facility] Heismmjlly[address] [place] [address]Dr. Swathi Reis NEUT # 7.5 103/ul Critically high 1.4-6.5 [facility] Comment on above: Performed By: #### C BC ####[facility] Xtjflrqrml[address] [place] [address]DrOtto Reis Neutrophils/100 WBC (Bld) 70.5 % Normal 43.0-75.0 [facility] Comment on above: Performed By: #### C BC ####[facility] Myoakftaww[address] [place] [address]Dr. Swathi Reis Platelet mean volume (Bld) [Entitic vol] 10.7 fL Normal 9.5-13.5 [facility] Comment on above: Performed By: #### C BC ####[facility] Bsqpkicjhw[address] [place], [place] [address]Dr. Swathi Reis PLT 291 103/ul Normal 150-450 [facility] Comment on above: Performed By: #### C BC ####[facility] Mqikkdwmbh0432[address] [place], [place] [address]Dr. Swathi Reis RBC 3.22 106/ul Critically low 4.20-5.40 [facility] Comment on above: Performed By: #### C BC ####[facility] Ohwwzawvbe[address] [place] [address]Dr. Swathi Reis WBC 10.6 103/ul Normal 4.0-11.0 [facility] Comment on above: Performed By: #### C BC ####[facility] Uvitwzmddu750[address] [place] [address]DrOtto Reis POINT OF CARE GLUCOSEon 10-2 0-2021 Glucose [Mass/Vol] 191 mg/dL Critically high 74-106 [facility] Comment on above: Performed By: #### P OCGLUC ####[facility] Yxpljapidk[address] [place] [address]DrOtto Reis PROF 14(COMP METB)on 022 Albumin [Mass/Vol] 2.4 g/dL Critically low 3.4-5.0 [facility] Comment on above: Performed By: #### B JD EDWARDS DEVELOPER, CMP ####[facility] Bknaldsvdd[address] [place] [address]Dr. Swathi Reis Albumin/Globulin [Mass ratio] 0.6 {ratio} Normal [facility] Comment on above: Performed By: #### B JD EDWARDS DEVELOPER, CMP ####[facility] Qayukekdkv36[address] [place] [address]Dr. Swathi Reis ALP [Catalytic activity/Vol] 73 U/L Normal 46-116 [facility] Comment on above: Performed By: #### B JD EDWARDS DEVELOPER, CMP ####[facility] Pyhikdyzip7516[address] [place], [place] [address]Dr. Swathi Reis ALT [Catalytic activity/Vol] 11 U/L Critically low 14-59 [facility] Comment on above: Performed By: #### B JD EDWARDS DEVELOPER, CMP ####[facility] Laemmylwuq[address] [place], [place] [address]Dr. Swathi Reis Anion gap [Moles/Vol] 7.7 mmol/L Normal [facility] Comment on above: Performed By: #### B JD EDWARDS DEVELOPER, CMP ####[facility] Dmdpbgimnh[address] [place], [place] [address]Dr. Swathi Reis AST [Catalytic activity/Vol] 15 U/L Normal 15-37 [facility] Comment on above: Performed By: #### B JD EDWARDS DEVELOPER, CMP ####[facility] Qfinpikjra[address] [place] [address]Dr. Swathi Reis Bilirubin [Mass/Vol] 0.3 mg/dL Normal 0.2-1.0 [facility] Comment on above: Performed By: #### B JD EDWARDS DEVELOPER, CMP ####[facility] Bivhvjzodo[address] [place], [place] [address]Dr. Swathi Reis Calcium [Mass/Vol] 9.3 mg/dL Normal 8.5-10.1 [facility] [place] Comment on above: Performed By: #### B JD EDWARDS DEVELOPER, CMP ####[facility] Yksk[address]mswe[address] [place] [phone]. Swathi Reis Chloride [Moles/Vol] 104 mmol/L Normal 98-107 [facility] Comment on above: Performed By: #### B JD EDWARDS DEVELOPER, CMP ####[facility] Xslhqhqyds0[address] [place], [place] [address]Dr. Swathi Reis CO2 [Moles/Vol] 30.2 mmol/L Normal 21.0-32.0 [facility] Comment on above: Performed By: #### B JD EDWARDS DEVELOPER, CMP ####[facility] Aqcuzuroud7718[address] [place], [place] [address]Dr. Swathi Reis Creatinine [Mass/Vol] 1.69 mg/dL Critically high 0.55-1.02 [facility] Comment on above: Performed By: #### B JD EDWARDS DEVELOPER, CMP ####[facility] Pguxbdgifc[address] [place], [place] [address]Dr. Inessatracy Chato EGFR-AF GRENADIAN 36 mL/min/1.73m2 Critically low >=60 [facility] Comment on above: Performed By: #### B JD EDWARDS DEVELOPER, CMP ####[facility] Abiicwkatp2078[address] [place], [place] [address]Dr. Swathi Reis EGFR-NON AF GRENADIAN 29 mL/min/1.73m2 Critically low >=60 [facility] Comment on above: Performed By: #### B JD EDWARDS DEVELOPER, CMP ####[facility] Zezffkrnbt475[address] [place], [place] [address]Dr. Inessatracy Chato Globulin (S) [Mass/Vol] 4.0 g/dL Normal [facility] Comment on above: Performed By: #### B JD EDWARDS DEVELOPER, CMP ####[facility] Xvtqbryswr4[address] [place] [phone]. Inessatracy Chato Glucose [Mass/Vol] 110 mg/dL Critically high 74-106 [facility] Comment on above: Performed By: #### B JD EDWARDS DEVELOPER, CMP ####[facility] Avjtdnsuja7054[address] [place], [place] [address]Dr. Swathi Reis Potassium [Moles/Vol] 3.9 mmol/L Normal 3.5-5.1 [facility] Comment on above: Performed By: #### B JD EDWARDS DEVELOPER, CMP ####[facility] Cyvirflpbi60[address] [place], [place] [address]Dr. Swathi Reis Protein [Mass/Vol] 6.4 g/dL Normal 6.4-8.2 [facility] [place] Comment on above: Performed By: #### B JD EDWARDS DEVELOPER, CMP ####[facility] Ywnxajvncz299[address] [place], [place] [address]Dr. Swathi Reis Sodium [Moles/Vol] 138 mmol/L Normal 136-145 [facility] Comment on above: Performed By: #### B JD EDWARDS DEVELOPER, CMP ####[facility] Fvocyjreov6938[address] [place], [place] [address]Dr. Swathi Reis Urea nitrogen [Mass/Vol] 21.0 mg/dL Critically high 7.0-18.0 [facility] Comment on above: Performed By: #### B JD EDWARDS DEVELOPER, CMP ####[facility] Wqvntavauf[address] [place], [place] [address]Dr. Swathi Reis Urea nitrogen/Creatinine [Mass ratio] 12.4 mg/mg Normal [facility] Comment on above: Performed By: #### B JD EDWARDS DEVELOPER, CMP ####[facility] Wzpgtuczmj[address] [place], [place] [address]Dr. Swathi Reis BNPon 07-11-2022 Natriuretic peptide B (Bld) [Mass/Vol] 2516.0 pg/mL Critically high <=1,800.0 [facility] Comment on above: Performed By: #### B JD EDWARDS DEVELOPER, CMP ####[facility] Cryflwewqh[address] [place], [place] [address]Dr. Swathi Reis C. DIFF PCRon 07-11-2022 C. DIFFICILE PCR Positive Critically abnormal NEGATIVE [facility] Comment on above: Performed By: #### C DIFPOC ####[facility] Juddrigfzo[address] [place], [place] [address]Dr. Swathi Reis CBC AUTO DIFFon 07-11-2022 BASO # 0.0 103/ul Normal 0.0-0.1 [facility] Comment on above: Performed By: #### C BC ####[facility] Hjzuqjamvi[address] [place], [place] [address]Dr. Swathi Reis Basophils/100 WBC (Bld) 0.4 % Normal 0.2-2.0 [facility] Comment on above: Performed By: #### C BC ####[facility] Icfzwlwspy90[address] [place] [phone]. Swathi Reis EO # 0.2 103/ul Normal 0.0-0.7 [facility] Comment on above: Performed By: #### C BC ####[facility] Ripleqxvdh39[address] [place] [address]Dr. Swathi Reis Eosinophils/100 WBC (Bld) 2.2 % Normal 0.9-7.0 [facility] Comment on above: Performed By: #### C BC ####[facility] Ttzmrqdegw[address] [place] [address]Dr. Swathi Reis Erythrocyte distribution width (RBC) [Ratio] 13.4 % Normal 11.0-15.0 [facility] Comment on above: Performed By: #### C BC ####[facility] Muoapvandi[address] [place] [address]Dr. Swathi Reis Hematocrit (Bld) [Volume fraction] 27.0 % Critically low 36.0-48.0 [facility] Comment on above: Performed By: #### C BC ####[facility] Gfvqsbapei[address] [place] [phone]. Swathi Reis Hemoglobin (Bld) [Mass/Vol] 8.5 g/dL Critically low 12.0-16.0 [facility] Comment on above: Performed By: #### C BC ####[facility] Pucowypqng[address] [place] [phone]. Swathi Reis IG # 0.07 10e3/ul Critically high 0.00-0.03 [facility] Comment on above: Performed By: #### C BC ####[facility] Itenuhhlxm24[address] [place] [address]Dr. Swathi Reis IG % 0.6 % Critically high 0.0-0.5 [facility] Comment on above: Performed By: #### C BC ####[facility] Icysdygoar25[address] [place] [phone]. Swathi Chato LYMPH # 1.2 103/ul Normal 1.2-3.8 [facility] Comment on above: Performed By: #### C BC ####[facility] Wakavylmqc4[address] [place] [phone]. Swathi Reis Lymphocytes/100 WBC (Bld) 10.5 % Critically low 20.5-60.0 [facility] Comment on above: Performed By: #### C BC ####[facility] Fumtlfgywm39[address] [place] [phone]. Swathi Chato MANUAL DIFF REQ NO Normal [facility] Comment on above: Performed By: #### C BC ####[facility] Mfegarnzpa9275 [place] [phone]. Swathi Chato MCH (RBC) [Entitic mass] 29.6 pg Normal 26.7-34.0 [facility] Comment on above: Performed By: #### C BC ####[facility] Jsonuhbnjq3720 [place] [phone]. Swathi Reis MCHC (RBC) [Mass/Vol] 31.5 g/dL Normal 29.9-35.2 [facility] Comment on above: Performed By: #### C BC ####[facility] Wmucjraqlx06[address] [place] [phone]. Swathi Reis MCV (RBC) [Entitic vol] 94.1 fL Normal 81.0-99.0 [facility] Comment on above: Performed By: #### C BC ####[facility] Jtzrqsxdkg7[address] [place] [phone]. Swathi Chato MONO # 1.1 103/ul Critically high 0.3-0.8 [facility] Comment on above: Performed By: #### C BC ####[facility] Andopycwdc5318 [place] [phone]. Swathi Chato Monocytes/100 WBC (Bld) 9.9 % Normal 1.7-12.0 [facility] Comment on above: Performed By: #### C BC ####[facility] Cckwwrsghz02[address] [place] [phone]. Swathi Reis NEUT # 8.4 103/ul Critically high 1.4-6.5 [facility] Comment on above: Performed By: #### C BC ####[facility] Aoqfhpmoar65[address] [place] [phone]. Swathi Reis Neutrophils/100 WBC (Bld) 76.4 % Critically high 43.0-75.0 [facility] Comment on above: Performed By: #### C BC ####[facility] Hlkafzfghr13[address] [place] [phone]. Swathi Reis Platelet mean volume (Bld) [Entitic vol] 10.6 fL Normal 9.5-13.5 [facility] Comment on above: Performed By: #### C BC ####[facility] Xtssuzimvk01[address] [place] [phone]. Swathi Reis PLT 248 103/ul Normal 150-450 [facility] Comment on above: Performed By: #### C BC ####[facility] Macidfsoqn033[address] [place] [phone]. Swathi Reis RBC 2.87 106/ul Critically low 4.20-5.40 [facility] Comment on above: Performed By: #### C BC ####[facility] Nhjbcdufbh26[address] [place] [phone]. Swathi Reis WBC 11.0 103/ul Normal 4.0-11.0 [facility] Comment on above: Performed By: #### C BC ####[facility] Njexqigiiw7186 [place] [phone]. Swathi Reis GI PANEL (PCR)on 07-11-2022 Adenovirus F 40/41 Not detected Normal NOT DETECTED [facility] Comment on above: Performed By: #### G IPANEL ####[facility] Hkyfkfkgrq[address] [place], [place] [address]Dr. Swathi Chato Astrovirus Not detected Normal NOT DETECTED [facility] Comment on above: Performed By: #### G IPANEL ####[facility] I[address]zbkksqc[address] [place], [place] [phone]. Swathi Reis C. Diff toxin A/B Detected Critically abnormal NOT DETECTED [facility] Comment on above: Performed By: #### G IPANEL ####[facility] Gaqgreatqq[address] [place], [place] [address]Dr. Swathi Reis Campylobacter Not detected Normal NOT DETECTED [facility] Comment on above: Performed By: #### G IPANEL ####[facility] Bffrbdibhd4[address] [place], [place] [address]Dr. Swathi Reis Cryptosporidium Not detected Normal NOT DETECTED [facility] Comment on above: Performed By: #### G IPANEL ####[facility] Dxnfhnefzi04[address] [place], [place] [address]Dr. Swathi Reis Cyclos. Cayetanensis Not detected Normal NOT DETECTED [facility] Comment on above: Performed By: #### G IPANEL ####[facility] Ojjtywawum[address] [place], [place] [address]Dr. Swathi Reis E. Coli O157 Not Applicable Normal Not Applicable [facility] Comment on above: Performed By: #### G IPANEL ####[facility] Sjvnnzugku7[address] [place], [place] [address]Dr. Swathi Reis E. histolytica Not detected Normal NOT DETECTED [facility] Comment on above: Performed By: #### G IPANEL ####[facility] Wtgyovigvw7[address] [place], [place] [address]Dr. Inessatracy Reis EAEC Not detected Normal NOT DETECTED [facility] Comment on above: Performed By: #### G IPANEL ####[facility] Ljcsdnwngj[address] [place], [place] [address]Dr. Swathi Reis EIEC Not detected Normal NOT DETECTED [facility] Comment on above: Performed By: #### G IPANEL ####[facility] Rrxyxzqcrc[address] [place], [place] [address]Dr. Swathi Reis EPEC Not detected Normal NOT DETECTED [facility] Comment on above: Performed By: #### G IPANEL ####[facility] Mtfbkfcmmb26[address] [place], [place] [address]Dr. Swathi Reis ETEC Not detected Normal NOT DETECTED [facility] Comment on above: Performed By: #### G IPANEL ####[facility] Bncaobtusb[address] [place] [address]Dr. Swathi Chato G. Lamblia Not detected Normal NOT DETECTED [facility] Comment on above: Performed By: #### G IPANEL ####[facility] Qchmjqftqy8704 [place] [phone]. Inessatracy Chato GIPANEL CONTROLS PASSED Normal [facility] Comment on above: Performed By: #### G IPANEL ####[facility] Egxrwpxtgk87[address] [place] [address]Dr. Inessatracy Chato GIPNL RICHELLE HEADER GI PANEL BACTERIA Normal T he [facility] Comment on above: Performed By: #### G IPANEL ####[facility] Qllskbrpxk[address] [place], [place] [address]Dr. Inessatracy Chato LOPEZNLHD ECOLI GI PANEL DIARRHEAGEN IC E.COLI / SHIGELLA Normal [facility] Comment on above: Performed By: #### G IPANEL ####[facility] Arhqzuesqg[address] [place], [place] [address]Dr. Swathi Reis GIPNLHD INFO SEE BELOW Normal [facility] Comment on above: Result Comment: EAEC - Enteroaggregative E. Coli EPEC- Enteropathogenic E. Coli ETEC- Enterotoxigenic E. Coli lt/st STEC- Shigella-like toxin-producing E. Coli stx1/stx2 EIEC- Shigella/Enteroinvasive E. Coli Performed By: #### G IPANEL ####[facility] Xunjgiucud[address] [place], [place] [address]Dr. Yilan Reis GIPNLHD PARASITES GI PANEL PARASITES Normal [facility] Comment on above: Performed By: #### G IPANEL ####[facility] Qcuyveduwi[address] [place], [place] [address]Dr. Inessatracy Chato GIPNLHD VIRUS GI PANEL VIRUSES Normal [facility] Comment on above: Performed By: #### G IPANEL ####[facility] Fpqsxxssxz58[address] [place], [place] [address]Dr. Swathi Reis Norovirus GI/GII Not detected Normal NOT DETECTED [facility] Comment on above: Performed By: #### G IPANEL ####[facility] Erohigfpzj13[address] [place], [place] [address]Dr. Swathi Reis P. Shigelloides Not detected Normal NOT DETECTED [facility] Comment on above: Performed By: #### G IPANEL ####[facility] Argrodrppo35[address] [place], [place] [address]Dr. Swathi Reis Rotavirus A Not detected Normal NOT DETECTED [facility] Comment on above: Performed By: #### G IPANEL ####[facility] Huxukemdvn78[address] [place], [place] [address]Dr. Swathi Reis Salmonella Not detected Normal NOT DETECTED [facility] Comment on above: Performed By: #### G IPANEL ####[facility] Kvblwzyvpw147[address] [place], [place] [address]Dr. Swathi Reis Sapovirus Not detected Normal NOT DETECTED [facility] Comment on above: Performed By: #### G IPANEL ####[facility] Ideoxtqwbx970[address] [place], [place] [address]Dr. Inessatracy Reis STEC Detected Critically abnormal NOT DETECTED [facility] Comment on above: Performed By: #### G IPANEL ####[facility] Acwboujzsj0114[address] [place], [place] [address]Dr. tracy Reis Vibrio Not detected Normal NOT DETECTED [facility] Comment on above: Performed By: #### G IPANEL ####[facility] Zyvjreusvp37[address] [place], [place] [address]Dr. tracy [facility] Vibrio Cholera Not detected Normal NOT DETECTED [facility] Comment on above: Performed By: #### G IPANEL ####[facility] Qxvgfjiwhg95[address] [place], [place] [address]Dr. Swathi Reis Y. Enterocolitica Not detected Normal NOT DETECTED [facility] Comment on above: Performed By: #### G IPANEL ####[facility] Jeaunxuohf5196[address] [place], [place] [address]Dr. Swathi Reis POINT OF CARE GLUCOSEon 10-1 Glucose [Mass/Vol] 120 mg/dL Critically high 74-106 [facility] Comment on above: Performed By: #### P OCGLUC ####[facility] [address] [place] [address]Dr. Swathi Reis Glucose [Mass/Vol] 193 mg/dL Critically high 74-106 T [facility] Comment on above: Performed By: #### P OCGLUC ####[facility] W[address]ivvard[address] [place] [address]Dr. Swathi Reis PROF 14(COMP METB)on 022 Albumin [Mass/Vol] 2.4 g/dL Critically low 3.4-5.0 Th [facility] Comment on above: Performed By: #### B JD EDWARDS DEVELOPER, CMP ####[facility] Kjdkjdctdl8715[address] [place], [place] [address]Dr. Swathi Reis Albumin/Globulin [Mass ratio] 0.7 {ratio} Normal [facility] Comment on above: Performed By: #### B JD EDWARDS DEVELOPER, CMP ####[facility] Ccaiedfatk16[address] [place], [place] [address]Dr. Swathi Reis ALP [Catalytic activity/Vol] 70 U/L Normal 46-116 [facility] Comment on above: Performed By: #### B JD EDWARDS DEVELOPER, CMP ####[facility] Cqhqgbxxxq8299[address] [place], [place] [address]Dr. Swathi Reis ALT [Catalytic activity/Vol] 12 U/L Critically low 14-59 [facility] Comment on above: Performed By: #### B JD EDWARDS DEVELOPER, CMP ####[facility] Defldlohal7666[address] [place], [place] [address]Dr. Swathi Reis Anion gap [Moles/Vol] 8.7 mmol/L Normal [facility] Comment on above: Performed By: #### B JD EDWARDS DEVELOPER, CMP ####[facility] Gqugxbjbmx8289[address] [place], [place] [address]Dr. Swathi Reis AST [Catalytic activity/Vol] 11 U/L Critically low 15-37 [facility] Comment on above: Performed By: #### B JD EDWARDS DEVELOPER, CMP ####[facility] Xcvxslzocj4396[address] [place], [place] [address]Dr. Swathi Reis Bilirubin [Mass/Vol] 0.3 mg/dL Normal 0.2-1.0 [facility] Comment on above: Performed By: #### B JD EDWARDS DEVELOPER, CMP ####[facility] Azylwzueou[address] [place] [address]Dr. Swathi Reis Calcium [Mass/Vol] 9.1 mg/dL Normal 8.5-10.1 [facility] [place] Comment on above: Performed By: #### B JD EDWARDS DEVELOPER, CMP ####[facility] Nxrznwrnfm4067[address] [place], [place] [address]Dr. Swathi Reis Chloride [Moles/Vol] 107 mmol/L Normal 98-107 [facility] Comment on above: Performed By: #### B JD EDWARDS DEVELOPER, CMP ####[facility] Lwyhvkzuqd9727[address] [place], [place] [address]Dr. Swathi Reis CO2 [Moles/Vol] 27.6 mmol/L Normal 21.0-32.0 [facility] Comment on above: Performed By: #### B JD EDWARDS DEVELOPER, CMP ####[facility] Nphazrwcxa3[address] [place], [place] [address]Dr. Swathi Chato Creatinine [Mass/Vol] 1.72 mg/dL Critically high 0.55-1.02 [facility] Comment on above: Performed By: #### B JD EDWARDS DEVELOPER, CMP ####[facility] Lhavflextc116[address] [place], [place] [address]Dr. Swathi Chato EGFR-AF GRENADIAN 35 mL/min/1.73m2 Critically low >=60 [facility] Comment on above: Performed By: #### B JD EDWARDS DEVELOPER, CMP ####[facility] Daizyykgyf6869[address] [place], [place] [address]Dr. Swathi Chato EGFR-NON AF GRENADIAN 29 mL/min/1.73m2 Critically low >=60 [facility] Comment on above: Performed By: #### B JD EDWARDS DEVELOPER, CMP ####[facility] Jslbovxnqd5817[address] [place], [place] [address]Dr. Inessatracy Chato Globulin (S) [Mass/Vol] 3.6 g/dL Normal [facility] Comment on above: Performed By: #### B JD EDWARDS DEVELOPER, CMP ####[facility] Mbvqbfspls3487[address] [place], [place] [address]Dr. Swathi Reis Glucose [Mass/Vol] 119 mg/dL Critically high 74-106 T [facility] Comment on above: Performed By: #### B JD EDWARDS DEVELOPER, CMP ####[facility] Zlbbkfbgef970[address] [place], [place] [address]Dr. Swathi Reis Potassium [Moles/Vol] 4.3 mmol/L Normal 3.5-5.1 [facility] Comment on above: Performed By: #### B JD EDWARDS DEVELOPER, CMP ####[facility] Agklzdpzie808[address] [place], [place] [address]Dr. Swathi Reis Protein [Mass/Vol] 6.0 g/dL Critically low 6.4-8.2 Th [facility] Comment on above: Performed By: #### B JD EDWARDS DEVELOPER, CMP ####[facility] Onxavztsxb3894[address] [place], [place] [address]Dr. Swathi Reis Sodium [Moles/Vol] 139 mmol/L Normal 136-145 [facility] [place] Comment on above: Performed By: #### B JD EDWARDS DEVELOPER, CMP ####[facility] Ihpefxxlce4[address] [place], [place] [address]Dr. Swathi Reis Urea nitrogen [Mass/Vol] 23.0 mg/dL Critically high 7.0-18.0 [facility] Comment on above: Performed By: #### B JD EDWARDS DEVELOPER, CMP ####[facility] Byqzdmkdox9[address] [place], [place] [address]Dr. Swathi Reis Urea nitrogen/Creatinine [Mass ratio] 13.4 mg/mg Normal [facility] Comment on above: Performed By: #### B JD EDWARDS DEVELOPER, CMP ####[facility] Srtefsrbnk4610[address] [place], [place] [address]Dr. Swathi Reis BNPon 07-10-2022 Natriuretic peptide B (Bld) [Mass/Vol] 2243.0 pg/mL Critically high <=1,800.0 [facility] Comment on above: Performed By: #### B JD EDWARDS DEVELOPER, CMP ####[facility] Cvcfxwafzh825[address] [place], [place] [address]Dr. Swathi Chato CBC AUTO DIFFon 07-10-2022 BASO # 0.1 103/ul Normal 0.0-0.1 [facility] Comment on above: Performed By: #### C BC ####[facility] X[address] [place] [id number]. Swathi Reis Basophils/100 WBC (Bld) 0.7 % Normal 0.2-2.0 [facility] Comment on above: Performed By: #### C BC ####[facility] Qrgboalctm[address] [place], [place] [id number]. Swathi Reis EO # 0.2 103/ul Normal 0.0-0.7 [facility] Comment on above: Performed By: #### C BC ####[facility] Wcjrsgauon[address] [place], [place] [id number]. Swathi Reis Eosinophils/100 WBC (Bld) 2.1 % Normal 0.9-7.0 [facility] Comment on above: Performed By: #### C BC ####[facility] Rcwtstayie[address] [place], [place] [address]Dr. Swathi Reis Erythrocyte distribution width (RBC) [Ratio] 13.5 % Normal 11.0-15.0 [facility] Comment on above: Performed By: #### C BC ####[facility] Ciraacgcsg7112[address] [place], [place] [address]Dr. Swathi Reis Hematocrit (Bld) [Volume fraction] 36.6 % Normal 36.0-48.0 [facility] Comment on above: Performed By: #### C BC ####[facility] Dgzsyrtlil75[address] [place], [place] [address]Dr. Swathi Reis Hemoglobin (Bld) [Mass/Vol] 11.3 g/dL Critically low 12.0-16.0 [facility] Comment on above: Performed By: #### C BC ####[facility] Znjffjvdpl7[address] [place], [place] [address]Dr. Swathi Reis IG # 0.03 10e3/ul Normal 0.00-0.03 [facility] Comment on above: Performed By: #### C BC ####[facility] Jxaczlboui657[address] [place], [place] [address]Dr. Swathi Reis IG % 0.4 % Normal 0.0-0.5 [facility] Comment on above: Performed By: #### C BC ####[facility] Xyvhcxihid2[address] [place] [id number]. Swathi Chato LYMPH # 0.8 103/ul Critically low 1.2-3.8 [facility] Comment on above: Performed By: #### C BC ####[facility] Bechjfgknz[address] [place] [phone]. Swathi Reis Lymphocytes/100 WBC (Bld) 10.3 % Critically low 20.5-60.0 [facility] Comment on above: Performed By: #### C BC ####[facility] Dbotbmbtht87[address] [place] [phone]. Swathi Reis MANUAL DIFF REQ NO Normal [facility] Comment on above: Performed By: #### C BC ####[facility] Yfxbjseypy87[address] [place] [phone]. Swathi Reis MCH (RBC) [Entitic mass] 29.1 pg Normal 26.7-34.0 [facility] Comment on above: Performed By: #### C BC ####[facility] Miyrdofgoc27[address] [place] [phone]. Inessatracy Reis MCHC (RBC) [Mass/Vol] 30.9 g/dL Normal 29.9-35.2 [facility] Comment on above: Performed By: #### C BC ####[facility] Xqaulezvbs87[address] [place] [phone]. Swathi Reis MCV (RBC) [Entitic vol] 94.3 fL Normal 81.0-99.0 [facility] Comment on above: Performed By: #### C BC ####[facility] Juptldfmyy[address] [place] [phone] Reis MONO # 0.7 103/ul Normal 0.3-0.8 [facility] Comment on above: Performed By: #### C BC ####[facility] Mmpbuzuwaz8[address] [place] [phone]. Swathi Reis Monocytes/100 WBC (Bld) 10.2 % Normal 1.7-12.0 [facility] Comment on above: Performed By: #### C BC ####[facility] Hikuwqpqbx[address] [place] [phone]. Swathi Reis NEUT # 5.5 103/ul Normal 1.4-6.5 [facility] Comment on above: Performed By: #### C BC ####[facility] Eapumnpkkl[address] [place] [phone]. Swathi Reis Neutrophils/100 WBC (Bld) 76.3 % Critically high 43.0-75.0 [facility] Comment on above: Performed By: #### C BC ####[facility] Ogoscnscgo[address] [place] [phone]. Swathi Reis Platelet mean volume (Bld) [Entitic vol] 10.6 fL Normal 9.5-13.5 [facility] Comment on above: Performed By: #### C BC ####[facility] Holgkytewc[address] [place] [phone]. Swathi Reis PLT 212 103/ul Normal 150-450 [facility] Comment on above: Performed By: #### C BC ####[facility] Abxvpdkdgt2467 [place] [phone]. Swathi Reis RBC 3.88 106/ul Critically low 4.20-5.40 [facility] Comment on above: Performed By: #### C BC ####[facility] Jehlqetfrw2499 [place] [phone]. Swathi Reis WBC 7.3 103/ul Normal 4.0-11.0 [facility] Comment on above: Performed By: #### C BC ####[facility] Djiptfolel0174 [place] [phone]. Swathi Chato POINT OF CARE GLUCOSEon 06-23 Glucose [Mass/Vol] 171 mg/dL Critically high 74-106 [facility] Comment on above: Performed By: #### P OCGLUC ####[facility] Xfwbbbozeu10[address] [place] [phone]. Swathi Chato Glucose [Mass/Vol] 162 mg/dL Critically high 74-106 [facility] Comment on above: Performed By: #### P OCGLUC ####[facility] Ew[address]fcfnn[address] [place] [address]Dr. Swathi Reis Glucose [Mass/Vol] 176 mg/dL Critically high 74-106 [facility] Comment on above: Performed By: #### P OCGLUC ####[facility] Xgnmqysaaq48[address] [place] [address]Dr. Inessatracy Reis Glucose [Mass/Vol] 140 mg/dL Critically high 74-106 [facility] Comment on above: Performed By: #### P OCGLUC ####[facility] Rizcyulqtw67[address] [place], [place] [address]Dr. Swathi Reis Glucose [Mass/Vol] 37 mg/dL Critically low 74-106 Th [facility] Comment on above: Result Comment: Will Repeat Test Performed By: #### P OCGLUC ####[facility] Fdstvybnuv97[address] [place], [place] [address]Dr. Swathi Reis PROF 14(COMP METB)on 022 Albumin [Mass/Vol] 2.5 g/dL Critically low 3.4-5.0 [facility] Comment on above: Performed By: #### B JD EDWARDS DEVELOPER, CMP ####[facility] Ckyhugqduz1535[address] [place], [place] [address]Dr. Swathi Reis Albumin/Globulin [Mass ratio] 0.7 {ratio} Normal [facility] Comment on above: Performed By: #### B JD EDWARDS DEVELOPER, CMP ####[facility] Hmigaahkwu68[address] [place], [place] [address]Dr. Swathi Reis ALP [Catalytic activity/Vol] 71 U/L Normal 46-116 [facility] Comment on above: Performed By: #### B JD EDWARDS DEVELOPER, CMP ####[facility] Vqdzxhhiqu5905[address] [place], [place] [address]Dr. Swathi Reis ALT [Catalytic activity/Vol] 12 U/L Critically low 14-59 [facility] Comment on above: Performed By: #### B JD EDWARDS DEVELOPER, CMP ####[facility] Ddojmpiczy014[address] [place], [place] [address]Dr. Swathi Reis Anion gap [Moles/Vol] 10.1 mmol/L Normal [facility] Comment on above: Performed By: #### B JD EDWARDS DEVELOPER, CMP ####[facility] Kdlqsnidhi[address] [place], [place] [address]Dr. Swathi Reis AST [Catalytic activity/Vol] 11 U/L Critically low 15-37 [facility] Comment on above: Performed By: #### B JD EDWARDS DEVELOPER, CMP ####[facility] Aedxjnkbnn5637[address] [place], [place] [address]Dr. Swathi Reis Bilirubin [Mass/Vol] 0.4 mg/dL Normal 0.2-1.0 [facility] Comment on above: Performed By: #### B JD EDWARDS DEVELOPER, CMP ####[facility] Xsdjmcjuqy8969[address] [place], [place] [address]Dr. Swathi Reis Calcium [Mass/Vol] 9.0 mg/dL Normal 8.5-10.1 [facility] [place] Comment on above: Performed By: #### B JD EDWARDS DEVELOPER, CMP ####[facility] Cnhhqqwgsv4485[address] [place], [place] [address]Dr. Inessatracy Reis Chloride [Moles/Vol] 107 mmol/L Normal 98-107 [facility] Comment on above: Performed By: #### B JD EDWARDS DEVELOPER, CMP ####[facility] Xavdlafxgq7604[address] [place], [place] [address]Dr. Swathi Reis CO2 [Moles/Vol] 28.9 mmol/L Normal 21.0-32.0 The [facility] Comment on above: Performed By: #### B JD EDWARDS DEVELOPER, CMP ####[facility] Lslvvdseuj1322[address] [place], [place] [address]Dr. Inessatracy Chato Creatinine [Mass/Vol] 2.01 mg/dL Critically high 0.55-1.02 [facility] Comment on above: Performed By: #### B JD EDWARDS DEVELOPER, CMP ####[facility] Lvhopyqrtx84[address] [place], [place] [address]Dr. Inessatracy Chato EGFR-AF GRENADIAN 29 mL/min/1.73m2 Critically low >=60 [facility] Comment on above: Performed By: #### B JD EDWARDS DEVELOPER, CMP ####[facility] Dwrdzmqphs7[address] [place] [address]Dr. Swathi Reis EGFR-NON AF GRENADIAN 24 mL/min/1.73m2 Critically low >=60 [facility] Comment on above: Performed By: #### B JD EDWARDS DEVELOPER, CMP ####[facility] Apvlfbyhqe4330[address] [place], [place] [address]Dr. Swathi Reis Globulin (S) [Mass/Vol] 3.6 g/dL Normal [facility] Comment on above: Performed By: #### B JD EDWARDS DEVELOPER, CMP ####[facility] Nlufushijg[address] [place], [place] [address]Dr. Swathi Reis Glucose [Mass/Vol] 123 mg/dL Critically high 74-106 [facility] Comment on above: Performed By: #### B JD EDWARDS DEVELOPER, CMP ####[facility] Necpicqjmt8589[address] [place], [place] [address]Dr. Swathi Reis Potassium [Moles/Vol] 4.0 mmol/L Normal 3.5-5.1 [facility] Comment on above: Performed By: #### B JD EDWARDS DEVELOPER, CMP ####[facility] Pdbtrwqilu418[address] [place], [place] [address]Dr. Swathi Reis Protein [Mass/Vol] 6.1 g/dL Critically low 6.4-8.2 [facility] Comment on above: Performed By: #### B JD EDWARDS DEVELOPER, CMP ####[facility] Nregqiqlui594[address] [place], [place] [address]Dr. Swathi Reis Sodium [Moles/Vol] 142 mmol/L Normal 136-145 [facility] [place] Comment on above: Performed By: #### B JD EDWARDS DEVELOPER, CMP ####[facility] Qlxzvtyryq624[address] [place], [place] [address]Dr. Swathi Reis Urea nitrogen [Mass/Vol] 27.0 mg/dL Critically high 7.0-18.0 [facility] Comment on above: Performed By: #### B JD EDWARDS DEVELOPER, CMP ####[facility] Zvrxhvrumi8611[address] [place], [place] [address]Dr. Swathi Reis Urea nitrogen/Creatinine [Mass ratio] 13.4 mg/mg Normal [facility] Comment on above: Performed By: #### B JD EDWARDS DEVELOPER, CMP ####[facility] Mqtqrsoejd0090[address] [place], [place] [address]Dr. Swathi Reis BNPon 07-09-2022 Natriuretic peptide B (Bld) [Mass/Vol] 5933.0 pg/mL Critically high <=1,800.0 [facility] Comment on above: Performed By: #### B JD EDWARDS DEVELOPER, CMP ####[facility] Bclwnczlvt5659[address] [place], [place] [address]Dr. Swathi Reis CBC AUTO DIFFon 07-09-2022 BASO # 0.1 103/ul Normal 0.0-0.1 [facility] Comment on above: Performed By: #### C BC ####[facility] Jxkmvljjbc078[address] [place], [place] [address]Dr. Swathi Reis Basophils/100 WBC (Bld) 0.5 % Normal 0.2-2.0 [facility] Comment on above: Performed By: #### C BC ####[facility] Prlusiqlyp122[address] [place], [place] [address]Dr. Swathi Reis EO # 0.3 103/ul Normal 0.0-0.7 [facility] Comment on above: Performed By: #### C BC ####[facility] Gqcqpuiupr8006[address] [place], [place] [address]Dr. Swathi Reis Eosinophils/100 WBC (Bld) 2.9 % Normal 0.9-7.0 [facility] Comment on above: Performed By: #### C BC ####[facility] Mzrsfmfmmu244[address] [place], [place] [address]Dr. Swathi Reis Erythrocyte distribution width (RBC) [Ratio] 13.4 % Normal 11.0-15.0 [facility] Comment on above: Performed By: #### C BC ####[facility] Ofbjhhycro6564[address] [place], [place] [address]Dr. Swathi Reis Hematocrit (Bld) [Volume fraction] 28.8 % Critically low 36.0-48.0 [facility] Comment on above: Performed By: #### C BC ####[facility] Kaclfdotjl8888[address] [place], [place] [address]DrOtto Reis Hemoglobin (Bld) [Mass/Vol] 9.2 g/dL Critically low 12.0-16.0 [facility] Comment on above: Performed By: #### C BC ####[facility] Ikmvqxzcxs20[address] [place] [address]DrOtto Reis IG # 0.04 10e3/ul Critically high 0.00-0.03 [facility] Comment on above: Performed By: #### C BC ####[facility] Yrmxipbony45[address] [place] [address]Dr. Swathi Reis IG % 0.4 % Normal 0.0-0.5 [facility] Comment on above: Performed By: #### C BC ####[facility] Skmcdkoseu805[address] [place], [place] [address]DrOtto Reis LYMPH # 1.2 103/ul Normal 1.2-3.8 [facility] Comment on above: Performed By: #### C BC ####[facility] Rnhkqcdemr5516[address] [place], [place] [address]DrOtto Reis Lymphocytes/100 WBC (Bld) 10.9 % Critically low 20.5-60.0 [facility] Comment on above: Performed By: #### C BC ####[facility] Vswfqkmqxo01[address] [place], [place] [address]DrOtto Reis MANUAL DIFF REQ NO Normal [facility] Comment on above: Performed By: #### C BC ####[facility] Ylbsslsabf9928[address] [place], [place] [address]DrOtto Reis MCH (RBC) [Entitic mass] 30.0 pg Normal 26.7-34.0 [facility] Comment on above: Performed By: #### C BC ####[facility] Pisvsrgoqb[address] [place], [place] [address]DrOtto Reis MCHC (RBC) [Mass/Vol] 31.9 g/dL Normal 29.9-35.2 [facility] Comment on above: Performed By: #### C BC ####[facility] Piudeelooa[address] [place], [place] [address]DrOtto Reis MCV (RBC) [Entitic vol] 93.8 fL Normal 81.0-99.0 [facility] Comment on above: Performed By: #### C BC ####[facility] Izqaqohrrp38[address] [place] [phone] Swathi Reis MONO # 1.0 103/ul Critically high 0.3-0.8 [facility] Comment on above: Performed By: #### C BC ####[facility] Hpizkmlraf34[address] [place], [place] [address]DrOtto Wylietracy Chato Monocytes/100 WBC (Bld) 9.6 % Normal 1.7-12.0 [facility] Comment on above: Performed By: #### C BC ####[facility] Osxxssevwo977333 [address] [place], [place] [address]DrOtto Wylietracy Reis NEUT # 8.0 103/ul Critically high 1.4-6.5 [facility] Comment on above: Performed By: #### C BC ####[facility] Ncmsiooodp3[address] [place], [place] [address]Dr. Inessatracy Chato Neutrophils/100 WBC (Bld) 75.7 % Critically high 43.0-75.0 [facility] Comment on above: Performed By: #### C BC ####[facility] Ncenirooil[address] [place], [place] [address]DrOtto Wylietracy Chato Platelet mean volume (Bld) [Entitic vol] 10.6 fL Normal 9.5-13.5 [facility] Comment on above: Performed By: #### C BC ####[facility] Qrzjjlkbqc[address] [place], [place] [id number]. Inessatracy Chato PLT 307 103/ul Normal 150-450 [facility] Comment on above: Performed By: #### C BC ####[facility] Xkewuttjeo49[address] [place], [place] [id number] Reis RBC 3.07 106/ul Critically low 4.20-5.40 [facility] Comment on above: Performed By: #### C BC ####[facility] Uaqjumgseo9[address] [place], [place] [address]DrOtto Reis WBC 10.6 103/ul Normal 4.0-11.0 [facility] Comment on above: Performed By: #### C BC ####[facility] H[address]xix[address] [place] [address]Dr. Swathi Reis POINT OF CARE GLUCOSEon 06-23 Glucose [Mass/Vol] 168 mg/dL Critically high 74-106 [facility] Comment on above: Performed By: #### P OCGLUC ####[facility] Fyrkxulgdi6[address] [place] [address]Dr. Swathi Reis Glucose [Mass/Vol] 136 mg/dL Critically high 74-106 [facility] Comment on above: Performed By: #### P OCGLUC ####[facility] Qwihryszes7324 [place] [address]Dr. Swathi Reis Glucose [Mass/Vol] 203 mg/dL Critically high 74-106 [facility] Comment on above: Performed By: #### P OCGLUC ####[facility] Cpqmqqionu8[address] [place] [address]Dr. Swathi Chato PROF 14(COMP METB)on 022 Albumin [Mass/Vol] 2.6 g/dL Critically low 3.4-5.0 [facility] Comment on above: Performed By: #### B JD EDWARDS DEVELOPER, CMP ####[facility] Unicdxeggr30[address] [place] [address]Dr. Swathi Reis Albumin/Globulin [Mass ratio] 0.7 {ratio} Normal [facility] Comment on above: Performed By: #### B JD EDWARDS DEVELOPER, CMP ####[facility] Nvyqcffffz9[address] [place] [address]Dr. Swathi Reis ALP [Catalytic activity/Vol] 73 U/L Normal 46-116 [facility] Comment on above: Performed By: #### B JD EDWARDS DEVELOPER, CMP ####[facility] Qggctoqvys9398 [place] [address]Dr. Swathi Chato ALT [Catalytic activity/Vol] 12 U/L Critically low 14-59 [facility] Comment on above: Performed By: #### B JD EDWARDS DEVELOPER, CMP ####[facility] Luxggounpt8368 [place] [address]Dr. Swathi Reis Anion gap [Moles/Vol] 12.4 mmol/L Normal [facility] Comment on above: Performed By: #### B JD EDWARDS DEVELOPER, CMP ####[facility] Pwfogsfjba7[address] [place], [place] [address]Dr. Swathi Reis AST [Catalytic activity/Vol] 10 U/L Critically low 15-37 [facility] Comment on above: Performed By: #### B JD EDWARDS DEVELOPER, CMP ####[facility] Irwlvyqqef455[address] [place], [place] [address]Dr. Swathi Reis Bilirubin [Mass/Vol] 0.5 mg/dL Normal 0.2-1.0 [facility] Comment on above: Performed By: #### B JD EDWARDS DEVELOPER, CMP ####[facility] Crksovwtle34[address] [place], [place] [address]Dr. Swathi Reis Calcium [Mass/Vol] 8.7 mg/dL Normal 8.5-10.1 [facility] Comment on above: Performed By: #### B JD EDWARDS DEVELOPER, CMP ####[facility] Gdzewfnopm0868[address] [place], [place] [address]Dr. Swathi Reis Chloride [Moles/Vol] 105 mmol/L Normal 98-107 [facility] Comment on above: Performed By: #### B JD EDWARDS DEVELOPER, CMP ####[facility] Wyneirzqsh8987[address] [place], [place] [address]Dr. Swathi Reis CO2 [Moles/Vol] 27.3 mmol/L Normal 21.0-32.0 [facility] Comment on above: Performed By: #### B JD EDWARDS DEVELOPER, CMP ####[facility] Ndowfyvfcz20[address] [place], [place] [address]Dr. Swathi Reis Creatinine [Mass/Vol] 2.02 mg/dL Critically high 0.55-1.02 [facility] Comment on above: Performed By: #### B JD EDWARDS DEVELOPER, CMP ####[facility] Nflhozopca686[address] [place], [place] [address]Dr. Swathi Reis EGFR-AF GRENADIAN 29 mL/min/1.73m2 Critically low >=60 [facility] Comment on above: Performed By: #### B JD EDWARDS DEVELOPER, CMP ####[facility] Nuxahygous18[address] [place] [id number]. Swathi Reis EGFR-NON AF GRENADIAN 24 mL/min/1.73m2 Critically low >=60 [facility] Comment on above: Performed By: #### B JD EDWARDS DEVELOPER, CMP ####[facility] Tmaotyrmgu55[address] [place] [phone]. Swathi Reis Globulin (S) [Mass/Vol] 3.6 g/dL Normal [facility] Comment on above: Performed By: #### B JD EDWARDS DEVELOPER, CMP ####[facility] Ozwmomofrr9480 [place] [address]Dr. Swathi Reis Glucose [Mass/Vol] 134 mg/dL Critically high 74-106 [facility] Comment on above: Performed By: #### B JD EDWARDS DEVELOPER, CMP ####[facility] Wljjxdqrwv3936[address] [place], [place] [address]Dr. Swathi Reis Potassium [Moles/Vol] 3.7 mmol/L Normal 3.5-5.1 [facility] Comment on above: Performed By: #### B JD EDWARDS DEVELOPER, CMP ####[facility] Ktvfbaavvc7450[address] [place], [place] [address]Dr. Swathi Reis Protein [Mass/Vol] 6.2 g/dL Critically low 6.4-8.2 [facility] Comment on above: Performed By: #### B JD EDWARDS DEVELOPER, CMP ####[facility] Tqoikoeycm5386 [place] [address]Dr. Swathi Reis Sodium [Moles/Vol] 141 mmol/L Normal 136-145 [facility] Comment on above: Performed By: #### B JD EDWARDS DEVELOPER, CMP ####[facility] Bpvanfpeqi5885 [place] [phone]. Swathi Reis Urea nitrogen [Mass/Vol] 29.0 mg/dL Critically high 7.0-18.0 [facility] Comment on above: Performed By: #### B JD EDWARDS DEVELOPER, CMP ####[facility] Pkkbrueppk4591 [place] [address]Dr. Swathi Reis Urea nitrogen/Creatinine [Mass ratio] 14.4 mg/mg Normal [facility] Comment on above: Performed By: #### B JD EDWARDS DEVELOPER, CMP ####[facility] Stqfsmqcvn7206[address] [place], [place] [address]Dr. Swathi Reis XR CHEST 2 Von 07-09-2022 XR CHEST 2 V Normal [facility] BNPon 07-08-2022 Natriuretic peptide B (Bld) [Mass/Vol] 6044.0 pg/mL Critically high <=1,800.0 [facility] Comment on above: Performed By: #### B JD EDWARDS DEVELOPER, CMP ####[facility] Uhhmyckxao607[address] [place], [place] [address]Dr. Swathi Reis CBC AUTO DIFFon 07-08-2022 BASO # 0.1 103/ul Normal 0.0-0.1 [facility] Comment on above: Performed By: #### C BC ####[facility] Iwdqakuxhk9487[address] [place], [place] [address]Dr. Swathi Reis Basophils/100 WBC (Bld) 0.7 % Normal 0.2-2.0 [facility] Comment on above: Performed By: #### C BC ####[facility] Wopabeevka4816[address] [place], [place] [address]Dr. Swathi Reis EO # 0.3 103/ul Normal 0.0-0.7 [facility] Comment on above: Performed By: #### C BC ####[facility] Iqqkdpaxij348[address] [place], [place] [address]Dr. Swathi Reis Eosinophils/100 WBC (Bld) 2.9 % Normal 0.9-7.0 [facility] Comment on above: Performed By: #### C BC ####[facility] Fadtdlkelc1055[address] [place], [place] [address]Dr. Swathi Reis Erythrocyte distribution width (RBC) [Ratio] 13.5 % Normal 11.0-15.0 [facility] Comment on above: Performed By: #### C BC ####[facility] Slrnynmfmt913[address] [place], [place] [address]Dr. Swathi Reis Hematocrit (Bld) [Volume fraction] 29.9 % Critically low 36.0-48.0 [facility] Comment on above: Performed By: #### C BC ####[facility] Ousrqdrlpc[address] [place] [address]Dr. Swathi Reis Hemoglobin (Bld) [Mass/Vol] 9.5 g/dL Critically low 12.0-16.0 [facility] Comment on above: Performed By: #### C BC ####[facility] Oegcvcydao95[address] [place] [address]Dr. Swathi Reis IG # 0.03 10e3/ul Normal 0.00-0.03 [facility] Comment on above: Performed By: #### C BC ####[facility] Qksxjxrdtr338[address] [place], [place] [address]Dr. Swathi Reis IG % 0.3 % Normal 0.0-0.5 [facility] Comment on above: Performed By: #### C BC ####[facility] Lzquzcauns015[address] [place], [place] [address]Dr. Swathi Reis LYMPH # 0.9 103/ul Critically low 1.2-3.8 [facility] Comment on above: Performed By: #### C BC ####[facility] Gadcpptbej2986[address] [place], [place] [address]Dr. Swathi Reis Lymphocytes/100 WBC (Bld) 8.4 % Critically low 20.5-60.0 [facility] Comment on above: Performed By: #### C BC ####[facility] Cjefptnavm0858[address] [place], [place] [address]Dr. Swathi Reis MANUAL DIFF REQ NO Normal [facility] Comment on above: Performed By: #### C BC ####[facility] Byqaluhkif1401[address] [place], [place] [address]Dr. Swathi Reis MCH (RBC) [Entitic mass] 30.1 pg Normal 26.7-34.0 [facility] Comment on above: Performed By: #### C BC ####[facility] Ilzazeiges9430[address] [place], [place] [address]Dr. Swathi Reis MCHC (RBC) [Mass/Vol] 31.8 g/dL Normal 29.9-35.2 [facility] Comment on above: Performed By: #### C BC ####[facility] Rjzbfbnkyd0316 [place] [phone]. Swathi Reis MCV (RBC) [Entitic vol] 94.6 fL Normal 81.0-99.0 [facility] Comment on above: Performed By: #### C BC ####[facility] Xaxyljnvjm6827 [place] [phone]. Swathi Reis MONO # 1.0 103/ul Critically high 0.3-0.8 [facility] Comment on above: Performed By: #### C BC ####[facility] Esgymsxcpt7044 [place] [phone]. Swathi Reis Monocytes/100 WBC (Bld) 9.5 % Normal 1.7-12.0 [facility] Comment on above: Performed By: #### C BC ####[facility] Vclvhtglzx1039[address] [place], [place] [address]Dr. Swathi Reis NEUT # 8.3 103/ul Critically high 1.4-6.5 [facility] Comment on above: Performed By: #### C BC ####[facility] Bknaxbngdp[address] [place], [place] [address]Dr. Swathi Reis Neutrophils/100 WBC (Bld) 78.2 % Critically high 43.0-75.0 [facility] Comment on above: Performed By: #### C BC ####[facility] Fxsetqujfi5989[address] [place], [place] [address]Dr. Swathi Reis Platelet mean volume (Bld) [Entitic vol] 10.7 fL Normal 9.5-13.5 [facility] Comment on above: Performed By: #### C BC ####[facility] Ecxboghzed[address] [place], [place] [address]Dr. Swathi Chato PLT 273 103/ul Normal 150-450 [facility] Comment on above: Performed By: #### C BC ####[facility] Fxhzvatldn2629 [place] [phone]. Inessatracy Reis RBC 3.16 106/ul Critically low 4.20-5.40 [facility] Comment on above: Performed By: #### C BC ####[facility] Kpiawexsyy3124 [place] [phone]. Inessatracy Chato WBC 10.6 103/ul Normal 4.0-11.0 [facility] Comment on above: Performed By: #### C BC ####[facility] Zaafecbbxd9429 [place] [phone]. Inessatracy Chato POINT OF CARE GLUCOSEon 06-23 Glucose [Mass/Vol] 243 mg/dL Critically high 74-106 [facility] Comment on above: Performed By: #### P OCGLUC ####[facility] Qfxhlgaquz3339 [place] [address]Dr. Swathi Reis Glucose [Mass/Vol] 161 mg/dL Critically high 74-106 [facility] Comment on above: Performed By: #### P OCGLUC ####[facility] Faaqgalfcy2659 [place] [address]Dr. Swathi Reis Glucose [Mass/Vol] 186 mg/dL Critically high 74-106 [facility] Comment on above: Performed By: #### P OCGLUC ####[facility] Lvdjptlqqd8664 [place] [address]Dr. Swathi Reis Glucose [Mass/Vol] 168 mg/dL Critically high 74-106 [facility] Comment on above: Performed By: #### P OCGLUC ####[facility] Xkekalecym8246 [place] [address]Dr. Swathi Reis PROF 14(COMP METB)on 022 Albumin [Mass/Vol] 2.5 g/dL Critically low 3.4-5.0 [facility] Comment on above: Performed By: #### B JD EDWARDS DEVELOPER, CMP ####[facility] Qelybcixhl7874 [place] [address]Dr. Swathi Reis Albumin/Globulin [Mass ratio] 0.7 {ratio} Normal [facility] Comment on above: Performed By: #### B JD EDWARDS DEVELOPER, CMP ####[facility] Ityesdxizw6590 [place] [address]Dr. Swathi Reis ALP [Catalytic activity/Vol] 77 U/L Normal 46-116 [facility] Comment on above: Performed By: #### B JD EDWARDS DEVELOPER, CMP ####[facility] Trztpoocyq1130[address] [place], [place] [address]Dr. Swathi Reis ALT [Catalytic activity/Vol] 16 U/L Normal 14-59 [facility] Comment on above: Performed By: #### B JD EDWARDS DEVELOPER, CMP ####[facility] Yrozetndnl0528[address] [place], [place] [address]Dr. Swathi Chato Anion gap [Moles/Vol] 11.9 mmol/L Normal [facility] Comment on above: Performed By: #### B JD EDWARDS DEVELOPER, CMP ####[facility] Crtshtaxdm8644[address] [place], [place] [address]Dr. Swathi Chato AST [Catalytic activity/Vol] 13 U/L Critically low 15-37 [facility] Comment on above: Performed By: #### B JD EDWARDS DEVELOPER, CMP ####[facility] Aejilsqiqb422[address] [place], [place] [address]Dr. Swathi Chato Bilirubin [Mass/Vol] 0.6 mg/dL Normal 0.2-1.0 [facility] Comment on above: Performed By: #### B JD EDWARDS DEVELOPER, CMP ####[facility] Ndvmokebnl[address] [place], [place] [address]Dr. Swathi Chato Calcium [Mass/Vol] 8.7 mg/dL Normal 8.5-10.1 [facility] [place] Comment on above: Performed By: #### B JD EDWARDS DEVELOPER, CMP ####[facility] Lgmgapymki3886[address] [place], [place] [address]Dr. Inessatracy Reis Chloride [Moles/Vol] 105 mmol/L Normal 98-107 [facility] Comment on above: Performed By: #### B JD EDWARDS DEVELOPER, CMP ####[facility] Nrxscyogyp6901[address] [place], [place] [address]Dr. Swathi Reis CO2 [Moles/Vol] 26.6 mmol/L Normal 21.0-32.0 [facility] Comment on above: Performed By: #### B JD EDWARDS DEVELOPER, CMP ####[facility] Klsiulxzou2515[address] [place], [place] [address]Dr. Swathi Reis Creatinine [Mass/Vol] 1.54 mg/dL Critically high 0.55-1.02 [facility] Comment on above: Performed By: #### B JD EDWARDS DEVELOPER, CMP ####[facility] Dpoedavbnr0327 [place] [address]Dr. Swathi Reis EGFR-AF GRENADIAN 40 mL/min/1.73m2 Critically low >=60 [facility] Comment on above: Performed By: #### B JD EDWARDS DEVELOPER, CMP ####[facility] Rsfoudpjbu5664 [place] [address]Dr. Swathi Reis EGFR-NON AF GRENADIAN 33 mL/min/1.73m2 Critically low >=60 [facility] Comment on above: Performed By: #### B JD EDWARDS DEVELOPER, CMP ####[facility] Rimnjgldpq6104[address] [place], [place] [address]Dr. Swathi Reis Globulin (S) [Mass/Vol] 3.8 g/dL Normal [facility] Comment on above: Performed By: #### B JD EDWARDS DEVELOPER, CMP ####[facility] Pbpcljftct0016[address] [place], [place] [address]Dr. Swathi Reis Glucose [Mass/Vol] 153 mg/dL Critically high 74-106 [facility] Comment on above: Performed By: #### B JD EDWARDS DEVELOPER, CMP ####[facility] Hwigbqbmwr0514[address] [place], [place] [address]Dr. Swathi Reis Potassium [Moles/Vol] 3.5 mmol/L Normal 3.5-5.1 [facility] Comment on above: Performed By: #### B JD EDWARDS DEVELOPER, CMP ####[facility] Ousjlkxorj8685[address] [place], [place] [address]Dr. Swathi Reis Protein [Mass/Vol] 6.3 g/dL Critically low 6.4-8.2 [facility] Comment on above: Performed By: #### B JD EDWARDS DEVELOPER, CMP ####[facility] Ajpvhqagdm030[address] [place], [place] [address]Dr. Swathi Reis Sodium [Moles/Vol] 140 mmol/L Normal 136-145 [facility] [place] Comment on above: Performed By: #### B JD EDWARDS DEVELOPER, CMP ####[facility] Brvsrivjng6668[address] [place], [place] [address]Dr. Swathi Reis Urea nitrogen [Mass/Vol] 25.0 mg/dL Critically high 7.0-18.0 [facility] Comment on above: Performed By: #### B JD EDWARDS DEVELOPER, CMP ####[facility] Hgsoryrdqu3507[address] [place], [place] [address]Dr. Swathi Reis Urea nitrogen/Creatinine [Mass ratio] 16.2 mg/mg Normal [facility] Comment on above: Performed By: #### B JD EDWARDS DEVELOPER, CMP ####[facility] Hbmplmcuqh099[address] [place], [place] [address]Dr. Swathi Reis BNPon 07-07-2022 Natriuretic peptide B (Bld) [Mass/Vol] 6413.0 pg/mL Critically high <=1,800.0 [facility] Comment on above: Performed By: #### B JD EDWARDS DEVELOPER, CMP ####[facility] Bumiquzmtj9711[address] [place], [place] [address]Dr. Swathi Reis CBC AUTO DIFFon 07-07-2022 BASO # 0.1 103/ul Normal 0.0-0.1 [facility] Comment on above: Performed By: #### C BC ####[facility] Vthunolyfu9715[address] [place], [place] [address]Dr. Swathi Reis Basophils/100 WBC (Bld) 0.4 % Normal 0.2-2.0 [facility] Comment on above: Performed By: #### C BC ####[facility] Aczxjwlhlp2597[address] [place], [place] [address]Dr. Swathi Reis EO # 0.3 103/ul Normal 0.0-0.7 [facility] Comment on above: Performed By: #### C BC ####[facility] Xjqpsebhvo8084[address] [place], [place] [address]Dr. Swathi Reis Eosinophils/100 WBC (Bld) 2.6 % Normal 0.9-7.0 [facility] Comment on above: Performed By: #### C BC ####[facility] Kvnehspnes5014[address] [place], [place] [address]Dr. Swathi Reis Erythrocyte distribution width (RBC) [Ratio] 13.7 % Normal 11.0-15.0 [facility] Comment on above: Performed By: #### C BC ####[facility] Vzwxbiuuxp4496 [place] [address]DrOtto Reis Hematocrit (Bld) [Volume fraction] 28.9 % Critically low 36.0-48.0 [facility] Comment on above: Performed By: #### C BC ####[facility] Oyyidojqtx6994[address] [place], [place] [address]DrOtto Reis Hemoglobin (Bld) [Mass/Vol] 9.3 g/dL Critically low 12.0-16.0 [facility] Comment on above: Performed By: #### C BC ####[facility] Otylxuivaf0567[address] [place], [place] [address]DrOtto Reis IG # 0.04 10e3/ul Critically high 0.00-0.03 [facility] Comment on above: Performed By: #### C BC ####[facility] Xnozhmskzi4114[address] [place], [place] [address]DrOtto Reis IG % 0.4 % Normal 0.0-0.5 [facility] Comment on above: Performed By: #### C BC ####[facility] Yjpgfdclbq9689[address] [place], [place] [address]DrOtto Reis LYMPH # 1.0 103/ul Critically low 1.2-3.8 [facility] Comment on above: Performed By: #### C BC ####[facility] Eyydxzbcto2286[address] [place], [place] [address]DrOtto Reis Lymphocytes/100 WBC (Bld) 8.6 % Critically low 20.5-60.0 [facility] Comment on above: Performed By: #### C BC ####[facility] Xswyxagcmm570[address] [place], [place] [address]DrOtot Reis MANUAL DIFF REQ NO Normal [facility] Comment on above: Performed By: #### C BC ####[facility] Lsjlszeinm9545[address] [place], [place] [address]DrOtto Reis MCH (RBC) [Entitic mass] 30.0 pg Normal 26.7-34.0 [facility] Comment on above: Performed By: #### C BC ####[facility] Hjbismyalx9544 [place] [address]Dr. Swathi Reis MCHC (RBC) [Mass/Vol] 32.2 g/dL Normal 29.9-35.2 [facility] Comment on above: Performed By: #### C BC ####[facility] Xrmgnnsoco3632[address] [place], [place] [address]Dr. Swathi Reis MCV (RBC) [Entitic vol] 93.2 fL Normal 81.0-99.0 [facility] Comment on above: Performed By: #### C BC ####[facility] Fbewdvgasy0101[address] [place], [place] [address]DrOtto Reis MONO # 1.0 103/ul Critically high 0.3-0.8 [facility] Comment on above: Performed By: #### C BC ####[facility] Xedyydyhyc3856[address] [place], [place] [address]Dr. Swathi Reis Monocytes/100 WBC (Bld) 9.0 % Normal 1.7-12.0 [facility] Comment on above: Performed By: #### C BC ####[facility] Hcupzhylya8[address] [place], [place] [address]DrOtto Reis NEUT # 9.0 103/ul Critically high 1.4-6.5 [facility] Comment on above: Performed By: #### C BC ####[facility] Lqwoqsiops2165[address] [place], [place] [address]Dr. Swathi Reis Neutrophils/100 WBC (Bld) 79.0 % Critically high 43.0-75.0 [facility] Comment on above: Performed By: #### C BC ####[facility] Jdayaymnga0879[address] [place], [place] [address]DrOtto Reis Platelet mean volume (Bld) [Entitic vol] 10.7 fL Normal 9.5-13.5 [facility] Comment on above: Performed By: #### C BC ####[facility] Vtawirycld[address] [place], [place] [id number]. Swathi Reis PLT 264 103/ul Normal 150-450 [facility] Comment on above: Performed By: #### C BC ####[facility] Mydlcvjudz56[address] [place] [address]Dr. Swathi Reis RBC 3.10 106/ul Critically low 4.20-5.40 [facility] Comment on above: Performed By: #### C BC ####[facility] Azqsnhbpyv0[address] [place] [address]Dr. Swathi Reis WBC 11.4 103/ul Critically high 4.0-11.0 [facility] Comment on above: Performed By: #### C BC ####[facility] Ievbxanppo2[address] [place] [address]Dr. Swathi Reis POINT OF CARE GLUCOSEon 06-23 Glucose [Mass/Vol] 298 mg/dL Critically high 74-106 [facility] Comment on above: Performed By: #### P OCGLUC ####[facility] Edzfrnplcl[address] [place] [address]Dr. Swathi Reis Glucose [Mass/Vol] 123 mg/dL Critically high 74-106 [facility] Comment on above: Performed By: #### P OCGLUC ####[facility] Jhuchbefmn[address] [place] [address]Dr. Swathi Reis Glucose [Mass/Vol] 263 mg/dL Critically high 74-106 [facility] Comment on above: Performed By: #### P OCGLUC ####[facility] Plyyepkidx54[address] [place] [address]Dr. Swathi Reis Glucose [Mass/Vol] 151 mg/dL Critically high 74-106 [facility] Comment on above: Performed By: #### P OCGLUC ####[facility] Ojrtnwodhk28[address] [place] [address]Dr. Swathi Reis PROF 14(COMP METB)on 07-07- 022 Albumin [Mass/Vol] 2.5 g/dL Critically low 3.4-5.0 [facility] Comment on above: Performed By: #### B JD EDWARDS DEVELOPER, CMP ####[facility] Emyflxbqdy67[address] [place] [phone]. Swathi Reis Albumin/Globulin [Mass ratio] 0.7 {ratio} Normal [facility] Comment on above: Performed By: #### B JD EDWARDS DEVELOPER, CMP ####[facility] Odrovlxhcj1514 [place], [place] [address]Xv. Swathi Reis ALP [Catalytic activity/Vol] 82 U/L Normal 46-116 [facility] Comment on above: Performed By: #### B JD EDWARDS DEVELOPER, CMP ####[facility] Labusqnlep7136 [place] [phone]. Swathi Reis ALT [Catalytic activity/Vol] 13 U/L Critically low 14-59 [facility] Comment on above: Performed By: #### B JD EDWARDS DEVELOPER, CMP ####[facility] Hobgtiltfo4087 [place] [phone]. Swathi Reis Anion gap [Moles/Vol] 11.5 mmol/L Normal [facility] Comment on above: Performed By: #### B JD EDWARDS DEVELOPER, CMP ####[facility] Juxnqqqqfu0269 [place] [phone]. Swathi Reis AST [Catalytic activity/Vol] 12 U/L Critically low 15-37 [facility] Comment on above: Performed By: #### B JD EDWARDS DEVELOPER, CMP ####[facility] Khsfdlzsjg2757 [place] [phone]. Swathi Reis Bilirubin [Mass/Vol] 0.7 mg/dL Normal 0.2-1.0 [facility] Comment on above: Performed By: #### B JD EDWARDS DEVELOPER, CMP ####[facility] Pqameovoyi3435 [place] [phone]. Swathi Chato Calcium [Mass/Vol] 8.6 mg/dL Normal 8.5-10.1 [facility] [place] Comment on above: Performed By: #### B JD EDWARDS DEVELOPER, CMP ####[facility] Undvkwfbtb6578 [place] [phone]. Swathi Reis Chloride [Moles/Vol] 104 mmol/L Normal 98-107 [facility] Comment on above: Performed By: #### B JD EDWARDS DEVELOPER, CMP ####[facility] Jvomrwxzul8474 [place] [phone]. Swathi Reis CO2 [Moles/Vol] 26.6 mmol/L Normal 21.0-32.0 [facility] Comment on above: Performed By: #### B JD EDWARDS DEVELOPER, CMP ####[facility] Whdzccfkbu[address] [place], [place] [id number]. Swathi Chato Creatinine [Mass/Vol] 1.56 mg/dL Critically high 0.55-1.02 [facility] Comment on above: Performed By: #### B JD EDWARDS DEVELOPER, CMP ####[facility] Prxnbaqzfl[address] [place], [place] [address]Dr. Inessatracy Chato EGFR-AF GRENADIAN 39 mL/min/1.73m2 Critically low >=60 [facility] Comment on above: Performed By: #### B JD EDWARDS DEVELOPER, CMP ####[facility] Jjmvsjcqwp[address] [place], [place] [address]Dr. Swathi Reis EGFR-NON AF GRENADIAN 32 mL/min/1.73m2 Critically low >=60 [facility] Comment on above: Performed By: #### B JD EDWARDS DEVELOPER, CMP ####[facility] Ngmmmsbhwd47[address] [place], [place] [address]Dr. Swathi Reis Globulin (S) [Mass/Vol] 3.7 g/dL Normal [facility] Comment on above: Performed By: #### B JD EDWARDS DEVELOPER, CMP ####[facility] Vhmqgvsmvd[address] [place], [place] [address]Dr. Swathi Reis Glucose [Mass/Vol] 149 mg/dL Critically high 74-106 [facility] Comment on above: Performed By: #### B JD EDWARDS DEVELOPER, CMP ####[facility] Tbnfjtajow[address] [place], [place] [address]Dr. Swathi Reis Potassium [Moles/Vol] 3.1 mmol/L Critically low 3.5-5.1 [facility] Comment on above: Performed By: #### B JD EDWARDS DEVELOPER, CMP ####[facility] Yjiywxgbod8[address] [place], [place] [address]Dr. Swathi Reis Protein [Mass/Vol] 6.2 g/dL Critically low 6.4-8.2 Th e [facility] Comment on above: Performed By: #### B JD EDWARDS DEVELOPER, CMP ####[facility] Ozfmyhrqnf[address] [place], [place] [address]Dr. Swathi Reis Sodium [Moles/Vol] 139 mmol/L Normal 136-145 [facility] [place] Comment on above: Performed By: #### B JD EDWARDS DEVELOPER, CMP ####[facility] Iebijjaybw6[address] [place], [place] [address]Dr. Swathi Reis Urea nitrogen [Mass/Vol] 19.0 mg/dL Critically high 7.0-18.0 [facility] Comment on above: Performed By: #### B JD EDWARDS DEVELOPER, CMP ####[facility] Yyjhndqenv[address] [place], [place] [address]Dr. Swathi Reis Urea nitrogen/Creatinine [Mass ratio] 12.2 mg/mg Normal [facility] Comment on above: Performed By: #### B JD EDWARDS DEVELOPER, CMP ####[facility] Gcwkvdsbwn[address] [place], [place] [address]Dr. Swathi Chato BNPon 07-06-2022 Natriuretic peptide B (Bld) [Mass/Vol] 4734.0 pg/mL Critically high <=1,800.0 [facility] Comment on above: Performed By: #### B JD EDWARDS DEVELOPER, CMP ####[facility] Rkldcnyjkt67[address] [place], [place] [address]Dr. Swathi Reis CBC AUTO DIFFon 07-06-2022 BASO # 0.0 103/ul Normal 0.0-0.1 [facility] Comment on above: Performed By: #### C BC ####[facility] Tdegnilgld[address] [place], [place] [address]Dr. Swathi Chato Basophils/100 WBC (Bld) 0.3 % Normal 0.2-2.0 [facility] Comment on above: Performed By: #### C BC ####[facility] Jifeiwakbe[address] [place], [place] [address]Dr. Swathi Reis EO # 0.0 103/ul Normal 0.0-0.7 [facility] Comment on above: Performed By: #### C BC ####[facility] Ipzhkzwjdw0162 [place] [address]Dr. Swathi Reis Eosinophils/100 WBC (Bld) 0.1 % Critically low 0.9-7.0 [facility] Comment on above: Performed By: #### C BC ####[facility] Nedehviajc8[address] [place], [place] [address]Dr. Swathi Reis Erythrocyte distribution width (RBC) [Ratio] 13.5 % Normal 11.0-15.0 [facility] Comment on above: Performed By: #### C BC ####[facility] Cgjiqguywe[address] [place], [place] [address]Dr. Swathi Reis Hematocrit (Bld) [Volume fraction] 29.6 % Critically low 36.0-48.0 [facility] Comment on above: Performed By: #### C BC ####[facility] Cthagvcpma[address] [place], [place] [address]Dr. Swathi Reis Hemoglobin (Bld) [Mass/Vol] 9.6 g/dL Critically low 12.0-16.0 [facility] Comment on above: Performed By: #### C BC ####[facility] Guqcyuools[address] [place], [place] [address]Dr. Swathi Reis IG # 0.07 10e3/ul Critically high 0.00-0.03 [facility] Comment on above: Performed By: #### C BC ####[facility] Mwouzjabfb6[address] [place], [place] [address]Dr. Swathi Reis IG % 0.5 % Normal 0.0-0.5 [facility] Comment on above: Performed By: #### C BC ####[facility] Axtwsflftm[address] [place], [place] [address]Dr. Swathi Reis LYMPH # 1.4 103/ul Normal 1.2-3.8 [facility] Comment on above: Performed By: #### C BC ####[facility] Qjgxuwwrxa8[address] [place], [place] [address]Dr. Swathi Reis Lymphocytes/100 WBC (Bld) 9.7 % Critically low 20.5-60.0 [facility] Comment on above: Performed By: #### C BC ####[facility] Nkeqygcwmy13[address] [place] [phone]. Swathi Reis MANUAL DIFF REQ NO Normal [facility] Comment on above: Performed By: #### C BC ####[facility] Dwafdhibpj0999 [place] [phone]. Swathi Reis MCH (RBC) [Entitic mass] 29.9 pg Normal 26.7-34.0 [facility] Comment on above: Performed By: #### C BC ####[facility] Hgxzuyddjc2043 [place] [phone]. Swathi Reis MCHC (RBC) [Mass/Vol] 32.4 g/dL Normal 29.9-35.2 [facility] Comment on above: Performed By: #### C BC ####[facility] Ohkzvdzjso4605 [place] [phone]. Swathi Chato MCV (RBC) [Entitic vol] 92.2 fL Normal 81.0-99.0 [facility] Comment on above: Performed By: #### C BC ####[facility] Lnwikfpcbq0642 [place] [phone]. Swathi Chato MONO # 1.3 103/ul Critically high 0.3-0.8 [facility] Comment on above: Performed By: #### C BC ####[facility] Rnexqzjerd[address] [place], [place] [address]Dr. Inessatracy Reis Monocytes/100 WBC (Bld) 9.4 % Normal 1.7-12.0 [facility] Comment on above: Performed By: #### C BC ####[facility] Dacdijqqfg8776 [place] [phone]. Inessatracy Reis NEUT # 11.4 103/ul Critically high 1.4-6.5 [facility] Comment on above: Performed By: #### C BC ####[facility] Uhiftjxrxj9442 [place] [phone]. Swathi Reis Neutrophils/100 WBC (Bld) 80.0 % Critically high 43.0-75.0 [facility] Comment on above: Performed By: #### C BC ####[facility] Asrfcgzokb3296 [place] [phone]. Swathi Reis Platelet mean volume (Bld) [Entitic vol] 10.6 fL Normal 9.5-13.5 [facility] Comment on above: Performed By: #### C BC ####[facility] Yktodhtqxe0244 [place] [phone]. Swathi Reis PLT 283 103/ul Normal 150-450 [facility] Comment on above: Performed By: #### C BC ####[facility] Xwskjbsszz5458 [place] [phone]. Swathi Reis RBC 3.21 106/ul Critically low 4.20-5.40 [facility] Comment on above: Performed By: #### C BC ####[facility] Za[address] [place] [address]Dr. Swathi Chato WBC 14.2 103/ul Critically high 4.0-11.0 [facility] Comment on above: Performed By: #### C BC ####[facility] Hqxtzpxhwx3134 [place] [address]Dr. Swathi Chato ECHOCARDIO M/2D COMPLETEon ECHOCARDIO M/2D COMPLETE Normal [facility] POINT OF CARE GLUCOSEon 06-23 Glucose [Mass/Vol] 227 mg/dL Critically high 74-106 [facility] Comment on above: Performed By: #### P OCGLUC ####[facility] Cbvomdbbvh3505 [place] [address]Dr. Swathi Chato Glucose [Mass/Vol] 175 mg/dL Critically high 74-106 [facility] Comment on above: Performed By: #### P OCGLUC ####[facility] Vzxmcmfcec6169 [place] [address]Dr. Inessatracy Reis PROF 14(COMP METB)on 07-06- 022 Albumin [Mass/Vol] 2.6 g/dL Critically low 3.4-5.0 [facility] Comment on above: Performed By: #### B JD EDWARDS DEVELOPER, CMP ####[facility] Bughjrrpnw6590 [place] [address]Dr. Inessatracy Chato Albumin/Globulin [Mass ratio] 0.7 {ratio} Normal [facility] Comment on above: Performed By: #### B JD EDWARDS DEVELOPER, CMP ####[facility] Fktvnjucjz2251 [place] [address]Dr. Swathi Reis ALP [Catalytic activity/Vol] 79 U/L Normal 46-116 [facility] Comment on above: Performed By: #### B JD EDWARDS DEVELOPER, CMP ####[facility] Llequbnzjy9358 [place] [address]Dr. Inessatracy Chato ALT [Catalytic activity/Vol] 17 U/L Normal 14-59 [facility] Comment on above: Performed By: #### B JD EDWARDS DEVELOPER, CMP ####[facility] Tfzofhucfc3498 [place] [address]Dr. Inessatracy Chato Anion gap [Moles/Vol] 11.5 mmol/L Normal [facility] Comment on above: Performed By: #### B JD EDWARDS DEVELOPER, CMP ####[facility] Tndhquildi4418 [place] [address]Dr. Swathi Chato AST [Catalytic activity/Vol] 11 U/L Critically low 15-37 [facility] Comment on above: Performed By: #### B JD EDWARDS DEVELOPER, CMP ####[facility] Fwwpvqbonc1706 [place] [address]Dr. Swathi Reis Bilirubin [Mass/Vol] 0.9 mg/dL Normal 0.2-1.0 [facility] Comment on above: Performed By: #### B JD EDWARDS DEVELOPER, CMP ####[facility] Whojvhdpfm7945 [place] [address]Dr. Swathi Reis Calcium [Mass/Vol] 8.3 mg/dL Critically low 8.5-10.1 [facility] Comment on above: Performed By: #### B JD EDWARDS DEVELOPER, CMP ####[facility] Uuvbazauyp3853 [place] [address]Dr. Swathi Reis Chloride [Moles/Vol] 102 mmol/L Normal 98-107 [facility] Comment on above: Performed By: #### B JD EDWARDS DEVELOPER, CMP ####[facility] Wqgqtglywz8266 [place] [address]Dr. Swathi Reis CO2 [Moles/Vol] 29.5 mmol/L Normal 21.0-32.0 [facility] Comment on above: Performed By: #### B JD EDWARDS DEVELOPER, CMP ####[facility] Kmksscxwaz[address] [place], [place] [address]Dr. Swathi Reis Creatinine [Mass/Vol] 1.47 mg/dL Critically high 0.55-1.02 [facility] Comment on above: Performed By: #### B JD EDWARDS DEVELOPER, CMP ####[facility] Rltvswehsd[address] [place], [place] [address]Dr. Swathi Chato EGFR-AF GRENADIAN 42 mL/min/1.73m2 Critically low >=60 [facility] Comment on above: Performed By: #### B JD EDWARDS DEVELOPER, CMP ####[facility] Dakvgtyugl7[address] [place], [place] [address]Dr. Swathi Reis EGFR-NON AF GRENADIAN 34 mL/min/1.73m2 Critically low >=60 [facility] Comment on above: Performed By: #### B JD EDWARDS DEVELOPER, CMP ####[facility] Jodijydlqf[address] [place], [place] [address]Dr. Swathi Reis Globulin (S) [Mass/Vol] 3.7 g/dL Normal [facility] Comment on above: Performed By: #### B JD EDWARDS DEVELOPER, CMP ####[facility] Beqvgsijqa77[address] [place], [place] [address]Dr. Swathi Reis Glucose [Mass/Vol] 150 mg/dL Critically high 74-106 [facility] Comment on above: Performed By: #### B JD EDWARDS DEVELOPER, CMP ####[facility] Jzmwuwefzo657[address] [place], [place] [address]Dr. Swathi Reis Potassium [Moles/Vol] 3.0 mmol/L Critically low 3.5-5.1 [facility] Comment on above: Performed By: #### B JD EDWARDS DEVELOPER, CMP ####[facility] Ymxmkiqexj46[address] [place], [place] [address]Dr. Swathi Reis Protein [Mass/Vol] 6.3 g/dL Critically low 6.4-8.2 [facility] Comment on above: Performed By: #### B JD EDWARDS DEVELOPER, CMP ####[facility] Gayrnqdwdz3736 [place] [phone]. Swathi Reis Sodium [Moles/Vol] 140 mmol/L Normal 136-145 [facility] Comment on above: Performed By: #### B JD EDWARDS DEVELOPER, CMP ####[facility] Ebhtxgvyoz5473 [place] [address]Dr. Swathi Reis Urea nitrogen [Mass/Vol] 16.0 mg/dL Normal 7.0-18.0 [facility] Comment on above: Performed By: #### B JD EDWARDS DEVELOPER, CMP ####[facility] Idswbpefva9243 [place] [address]Dr. Swathi Reis Urea nitrogen/Creatinine [Mass ratio] 10.9 mg/mg Normal [facility] Comment on above: Performed By: #### B JD EDWARDS DEVELOPER, CMP ####[facility] Kglbdzmksy1050 [place] [address]Dr. Swathi Reis XR CHEST 2 Von 07-06-2022 XR CHEST 2 V Normal [facility] BLOOD GASES BTYon 07-05-2022 02 MODE NASAL CANNULA Normal [facility] Comment on above: Performed By: #### A BG ####[facility] Giuyunnjka[address] [place], [place] [address]Dr. Swathi Reis ALLENS TEST Positive [facility] Comment on above: Performed By: #### A BG ####[facility] Cqzzpfbqcl9453 [place] [address]Dr. Swathi Reis Base excess Calc (Bld) [Moles/Vol] 3.1 mmol/L Critically high -2.0-2.0 [facility] Comment on above: Performed By: #### A BG ####[facility] Mwafhukmrs5034 [place] [address]Dr. Swathi Reis BIPAP PRESSURE Normal [facility] Comment on above: Performed By: #### A BG ####[facility] Uacatdxyag7624 [place] [address]Dr. Swathi Reis CPAP Normal [facility] Comment on above: Performed By: #### A BG ####[facility] Jlnemnvbdn4301 [place] [address]Dr. Inessatracy Chato FIO2 Normal [facility] Comment on above: Performed By: #### A BG ####[facility] Tvehtgmsut[address] [place], [place] [address]Dr. Swathi Reis HCO3 (Bld) [Moles/Vol] 27.0 mmol/L Critically high 22.0-26 .0 [facility] Comment on above: Performed By: #### A BG ####[facility] Upqhafgoxx[address] [place], [place] [address]Dr. Swathi Reis LPM 5 Normal [facility] Comment on above: Performed By: #### A BG ####[facility] Gfmqaivcft[address] [place], [place] [address]Dr. Swathi Reis MINUTE VOLUME Normal [facility] Comment on above: Performed By: #### A BG ####[facility] Bealwknnen[address] [place], [place] [address]Dr. Swathi Reis Oxygen (Bld) [Partial pressure] 71.4 mm[Hg] Critically low 80.0-100.0 [facility] Comment on above: Performed By: #### A BG ####[facility] Tjzfrdvzso75[address] [place], [place] [address]Dr. Swathi Reis Oxygen saturation in Blood 95.5 % Normal 95.0-100.0 [facility] Comment on above: Performed By: #### A BG ####[facility] Zgeptdygel[address] [place], [place] [address]Dr. Swathi Reis PCO2 40.2 mmHg Normal 35.0-45.0 [facility] Comment on above: Performed By: #### A BG ####[facility] Pchbqoclrl[address] [place], [place] [address]Dr. Swathi Reis PEEP Normal [facility] Comment on above: Performed By: #### A BG ####[facility] Ydxrwjwljx[address] [place], [place] [address]Dr. Swathi Reis pH (Bld) 7.440 [pH] Normal 7.350-7.450 [facility] Comment on above: Performed By: #### A BG ####[facility] Xnjqsqlrep3636 [place] [address]Dr. Swathi Reis PIP [facility] Comment on above: Performed By: #### A BG ####[facility] Hirkucqcbw4590 [place] [address]Dr. Swathi Reis PS [facility] Comment on above: Performed By: #### A BG ####[facility] Prgfsdnddc2214 [place] [address]Dr. Swathi Reis PUNCTURE SITE RR Normal [facility] Comment on above: Performed By: #### A BG ####[facility] Hombabxaov[address] [place], [place] [address]Dr. Swathi Reis RATE [facility] Comment on above: Performed By: #### A BG ####[facility] Wzslugfwwq[address] [place], [place] [address]Dr. Swathi Reis VENT MODE [facility] Comment on above: Performed By: #### A BG ####[facility] Xrnwiyosuu57[address] [place], [place] [address]Dr. Swathi Reis [place] [facility] Comment on above: Performed By: #### A BG ####[facility] Ypqxdqgsxn[address] [place], [place] [address]Dr. Swathi Reis BNPon 07-05-2022 Natriuretic peptide B (Bld) [Mass/Vol] 2257.0 pg/mL Critically high <=1,800.0 [facility] Comment on above: Performed By: #### H STROPN, CMP, BNP ####[facility] Qfybqjzxov[address] [place], [place] [address]Dr. Swathi Reis CARDIAC TRINA 3-6on 2 CK [Catalytic activity/Vol] 54 U/L Normal 26-192 [facility] Comment on above: Performed By: #### C MREP ####[facility] Azjfexiiyq[address] [place], [place] [address]Dr. Swathi Reis CK.MB [Mass/Vol] ng/mL Normal <=3.60 [facility] Comment on above: Performed By: #### C MREP ####[facility] Goafaqjwpa3694 [place] [phone]. Swathi Reis HSTROP 18.6 pg/mL Normal 4.0-51.3 [facility] Comment on above: Result Comment: CUT- OFF POINTS HAVE BEEN ESTABLISHED BASED ON THE FOURTH UNIVERSAL DEFINITIONS OF MYOCARDIALINFARCTION. THE UPPER REFERENCE LIMIT (URL) OF TROPONIN, DEFINED THE 99TH PERCENTILE OFcTnI DISTRIBUTION IN A REFERENCE POPULATION, HAS BEEN CONFIRMED THE DECISION THRESHOLDFOR HI DIAGNOSIS. Performed By: #### C MREP ####[facility] Nzzefwbnfq8099 [place] [phone]. Swathi Chato CK [Catalytic activity/Vol] 38 U/L Normal 26-192 [facility] Comment on above: Performed By: #### C MREP ####[facility] Fgzqvnkhir9624 [place] [address]Dr. Swathi Chato CK.MB [Mass/Vol] 0.51 ng/mL Normal <=3.60 [facility] Comment on above: Performed By: #### C MREP ####[facility] Amrywyjtvp5735 [place] [address]Dr. Swathi Chato HSTROP 16.6 pg/mL Normal 4.0-51.3 [facility] Comment on above: Result Comment: CUT- OFF POINTS HAVE BEEN ESTABLISHED BASED ON THE FOURTH UNIVERSAL DEFINITIONS OF MYOCARDIALINFARCTION. THE UPPER REFERENCE LIMIT (URL) OF TROPONIN, DEFINED THE 99TH PERCENTILE OFcTnI DISTRIBUTION IN A REFERENCE POPULATION, HAS BEEN CONFIRMED THE DECISION THRESHOLDFOR HI DIAGNOSIS. Performed By: #### C MREP ####[facility] Jziwokkcke[address] [place] [address]Dr. Swathi Reis CBC W MANUAL DIFFon 07-05-20 22 ATYPICAL LYMPH # Normal [facility] Comment on above: Performed By: #### C BCMAN ####[facility] Xyeaoeiimt3547 [place] [address]Dr. Swathi Reis ATYPICAL LYMPH % Normal [facility] Comment on above: Performed By: #### C BCMAN ####[facility] Lvhwpxxocu3812 [place] [address]Dr. Swathi Reis BAND # 0.4 103/ul Critically high 0.0-0.3 [facility] Comment on above: Performed By: #### C BCMAN ####[facility] Lyueltgwfv[address] [place] [address]Dr. Swathi Reis BAND % 2 % Normal 0-5 [facility] Comment on above: Performed By: #### C BCMAN ####[facility] Mhajuijvui34[address] [place] [address]Dr. Swathi Reis BASOM # 0.00 103/ul Normal 0.00-0.10 [facility] Comment on above: Performed By: #### C BCYUN ####[facility] [address]vxdkfnzpy[address] [place], [place] [address]Dr. Swathi Reis BASOM % 0.0 % Critically low 0.2-2.0 [facility] Comment on above: Performed By: #### C NGA ####[facility] Czudgxurby[address] [place], [place] [address]Dr. Swathi Reis BLAST # Normal [facility] Comment on above: Performed By: #### C BCYUN ####[facility] Avxtkfliky[address] [place], [place] [address]Dr. Swathi Reis BLAST % Normal [facility] Comment on above: Performed By: #### C BCYUN ####[facility] Oxzhfjfwlp[address] [place], [place] [address]Dr. Swathi Reis CORRECTED WBC Normal 4.0-11.0 The [facility] Comment on above: Performed By: #### C BCYUN ####[facility] Xkwwqkyasj[address] [place], [place] [address]Dr. Swathi Reis EOS # 0.00 103/ul Normal 0.00-0.70 [facility] Comment on above: Performed By: #### C BCYUN ####[facility] Qsarlalyyk[address] [place], [place] [address]Dr. Swathi Reis EOS% 0.0 % Critically low 0.9-7.0 The [facility] Comment on above: Performed By: #### C BCYUN ####[facility] Vpwhyvmpil8311 [place], [place] [address]Fl. Swathi Reis HCT 32.7 % Critically low 36.0-48.0 The [facility] Comment on above: Performed By: #### C NGA ####[facility] Nekvstvklv2096 [place], [place] [address]Fz. Swathi Reis HGB 10.6 g/dl Critically low 12.0-16.0 [facility] Comment on above: Performed By: #### C NGA ####[facility] Veyqvxmqys4889 [place], [place] [address]Mu. Swathi Reis LYMPHM # 0.84 103/ul Critically low 1.20-3.80 The [facility] Comment on above: Performed By: #### C NGA ####[facility] Gcvgefgeop2652 [place], [place] [address]Cd. Swathi Reis LYMPHM% 4.0 % Critically low 20.5-60.0 [facility] Comment on above: Performed By: #### C NGA ####[facility] Tphwsgqgta6088 [place], [place] [address]Nl. Swathi Reis MCH 30.1 pg Normal 26.7-34.0 [facility] Comment on above: Performed By: #### C NGA ####[facility] Skpljtpzym3940 [place], [place] [address]Ej. Swathi Reis MCHC 32.4 g/dl Normal 29.9-35.2 [facility] Comment on above: Performed By: #### C NGA ####[facility] Klxjkstmrs2231 [place], [place] [address]Mq. Swathi Reis MCV 92.9 fL Normal 81.0-99.0 [facility] Comment on above: Performed By: #### C NGA ####[facility] Dtqhwvwrmu6638 [place], [place] [address]Vc. Swathi Reis METAMYELOCYTE # Normal [facility] Comment on above: Performed By: #### C NGA ####[facility] Uj[address]psfv[address] [place] [phone]. Swathi Reis METAMYELOCYTE % Normal [facility] Comment on above: Performed By: #### C NGA ####[facility] Khyroymmjk1025 [place], [place] [address]Ex. Swathi Reis MONOM# 1.88 103/ul Critically high 0.30-0.80 [facility] Comment on above: Performed By: #### C NGA ####[facility] Jdiprdxqod7412 [place], [place] [address]Ia. Swathi Reis MONOM% 9.0 % Normal 1.7-12.0 [facility] Comment on above: Performed By: #### C NGA ####[facility] Fbnfdodspe8471 [place] [phone]. Swathi Reis MPV 10.6 fL Normal 9.5-13.5 [facility] Comment on above: Performed By: #### C NGA ####[facility] Ampnlnmmot0795 [place] [phone]. Swathi Reis MYELOCYTE # Normal [facility] Comment on above: Performed By: #### C NGA ####[facility] Qwznqjhssj8222 [place], [place] [address]Cu. Swathi Reis MYELOCYTE % Normal [facility] Comment on above: Performed By: #### C NGA ####[facility] Wqwcefmfba3687 [place], [place] [address]Wh. Swathi Reis NRBC Normal [facility] Comment on above: Performed By: #### C NGA ####[facility] Uxarilikui8460 [place] [phone]. Swathi Reis PLT 335 103/ul Normal 150-450 [facility] Comment on above: Performed By: #### C NGA ####[facility] Ibiflwyapa8744 [place] [phone]. Swathi Reis RBC 3.52 106/ul Critically low 4.20-5.40 [facility] Comment on above: Performed By: #### C NGA ####[facility] Zbkxtmwref6314 [place] [phone]. Swathi Reis RDW 13.5 % Normal 11.0-15.0 The [facility] Comment on above: Performed By: #### C BCMAN ####[facility] Wywfpxwfxd1645 [place], [place] [address]Za. Swathi Reis SEG # 17.76 103/ul Critically high 1.40-6.50 [facility] Comment on above: Performed By: #### C BCMAN ####[facility] Wtozeydovv8913 [place], [place] [address]Sz. Swathi Reis SEG % 85.0 % Critically high 43.0-75.0 [facility] Comment on above: Performed By: #### C BCMAN ####[facility] Iohceerrgh9394 [place], [place] [address]Qw. Swathi Reis WBC 20.9 103/ul Critically high 4.0-11.0 [facility] Comment on above: Performed By: #### C JAUNMAN ####[facility] Cdzqziqmgr0137 [place] [phone]. Swathi Reis CTA CHEST WO W CONon 022 CTA CHEST WO W CON Normal The [facility] CULTURE BLOODon 07-05-2022 Microscopic examination of blood, culture Culture Observations: NO GROWTH AT 5 DAYS. Normal [facility] Comment on above: Performed By: #### B LDCX2 ####[facility] Xtipmxgoid1580 [place], [place] [address]Yr. Swathi Reis Microscopic examination of blood, culture Culture Observations: NO GROWTH AT 5 DAYS. Normal [facility] Comment on above: Performed By: #### B LDCX1 ####[facility] Nuxmobyqhn4966 [place] [phone]. Swathi Reis Covid-19 PCR ([facility])on 06-23 SARS-CoV-2 (COVID-19) RNA ÓSCAR+probe Ql (Unsp spec) Not detected Normal NOT DETECTED [facility] Comment on above: Result Comment: [...] for this test is supported by the Road Mixer Operator of Health and Human Service's declaration that [...] be used). Performed By: #### C VDTBH ####[facility] Apmyhdukau[address] [place], [place] [address]Dr. Swathi Reis D-DIMERon 07-05-2022 D-DIMER 2.17 mg/L FEU Critically high <=0.59 [facility] [place] Comment on above: Performed By: #### P T, DDIM, PTT ####[facility] Eszghnuqmf[address] [place], [place] [address]Dr. Swathi Reis D-DIMER COMMENTS SEE BELOW Normal The [facility] Comment on above: Result Comment: Incr [...] Performed By: #### P T, DDIM, PTT ####[facility] Htehxcdkvp2[address] [place] [address]Dr. Swathi Reis LACTATE/LACTIC ACIDon 2021 Lactate [Moles/Vol] 2.5 mmol/L Critically high 0.4-1.9 [facility] Comment on above: Performed By: #### L ACT ####[facility] Uglmyrfpkt[address] [place], [place] [address]Dr. Swathi Reis Lactate [Moles/Vol] 3.2 mmol/L Critically high 0.4-1.9 [facility] Comment on above: Performed By: #### L ACT ####[facility] Wzfiyuuvte66[address] [place] [address]Dr. Swathi Reis POINT OF CARE GLUCOSEon 06-23 Glucose [Mass/Vol] 179 mg/dL Critically high 74-106 T [facility] Comment on above: Performed By: #### P OCGLUC ####[facility] Nelkkrrrkl34[address] [place] [address]Dr. Swathi Reis PROF 14(COMP METB)on 022 Albumin [Mass/Vol] 3.2 g/dL Critically low 3.4-5.0 [facility] Comment on above: Performed By: #### H STROPN, CMP, BNP ####[facility] Ytqjwmlxec7119 [place] [address]Dr. Swathi Reis Albumin/Globulin [Mass ratio] 0.8 {ratio} Normal [facility] Comment on above: Performed By: #### H STROPN, CMP, BNP ####[facility] Wlpujzwcfj1768 [place] [address]Dr. Swathi Reis ALP [Catalytic activity/Vol] 98 U/L Normal 46-116 [facility] Comment on above: Performed By: #### H STROPN, CMP, BNP ####[facility] Sndbpznsru7122 [place] [address]Dr. Swathi Reis ALT [Catalytic activity/Vol] 18 U/L Normal 14-59 [facility] Comment on above: Performed By: #### H STROPN, CMP, BNP ####[facility] Ttckaaneiq6249 [place] [address]Dr. Swathi Reis Anion gap [Moles/Vol] 11.5 mmol/L Normal [facility] Comment on above: Performed By: #### H STROPN, CMP, BNP ####[facility] Pguccdpizr2708 [place] [address]Dr. Swathi Reis AST [Catalytic activity/Vol] 16 U/L Normal 15-37 [facility] Comment on above: Performed By: #### H STROPN, CMP, BNP ####[facility] Ibykkjizaw1901 [place] [address]Dr. Swathi Reis Bilirubin [Mass/Vol] 0.7 mg/dL Normal 0.2-1.0 [facility] Comment on above: Performed By: #### H STROPN, CMP, BNP ####[facility] Fllnqkunqt5041 [place] [address]Dr. Swathi Reis Calcium [Mass/Vol] 9.3 mg/dL Normal 8.5-10.1 [facility] [place] Comment on above: Performed By: #### H STROPN, CMP, BNP ####[facility] Xakagnibzx0196 [place] [address]Dr. Swathi Reis Chloride [Moles/Vol] 100 mmol/L Normal 98-107 [facility] Comment on above: Performed By: #### H STROPN, CMP, BNP ####[facility] Qymlniksye6231 [place] [address]Dr. Swathi Reis CO2 [Moles/Vol] 29.5 mmol/L Normal 21.0-32.0 The [facility] Comment on above: Performed By: #### H STROPN, CMP, BNP ####[facility] Hkhniuzonf[address] [place], [place] [address]Dr. Swathi Reis Creatinine [Mass/Vol] 1.66 mg/dL Critically high 0.55-1.02 [facility] Comment on above: Performed By: #### H STROPN, CMP, BNP ####[facility] Wwupnqxara8054 [place] [address]Dr. Swathi Reis EGFR-AF GRENADIAN 36 mL/min/1.73m2 Critically low >=60 [facility] Comment on above: Performed By: #### H STROPN, CMP, BNP ####[facility] Ogrvrowpba[address] [place] [address]Dr. Swathi Reis EGFR-NON AF GRENADIAN 30 mL/min/1.73m2 Critically low >=60 [facility] Comment on above: Performed By: #### H STROPN, CMP, BNP ####[facility] Nudlmmwhfh5870 [place] [address]Dr. Swathi Reis Globulin (S) [Mass/Vol] 4.0 g/dL Normal [facility] Comment on above: Performed By: #### H STROPN, CMP, BNP ####[facility] Lhpagkqzdb1328 [place] [address]Dr. Swathi Reis Glucose [Mass/Vol] 247 mg/dL Critically high 74-106 T [facility] Comment on above: Performed By: #### H STROPN, CMP, BNP ####[facility] Diflqauprn7098 [place] [address]Dr. Swathi Reis Potassium [Moles/Vol] 4.0 mmol/L Normal 3.5-5.1 [facility] Comment on above: Performed By: #### H STROPN, CMP, BNP ####[facility] Ajhfgklnei7457 [place] [address]Dr. Swathi Reis Protein [Mass/Vol] 7.2 g/dL Normal 6.4-8.2 [facility] [place] Comment on above: Performed By: #### H STROPN, CMP, BNP ####[facility] Nquucvrtya2658 [place] [address]Dr. Swathi Reis Sodium [Moles/Vol] 137 mmol/L Normal 136-145 [facility] [place] Comment on above: Performed By: #### H STROPN, CMP, BNP ####[facility] Bctcefqgqi4456 [place] [address]Dr. Swathi Reis Urea nitrogen [Mass/Vol] 22.0 mg/dL Critically high 7.0-18.0 [facility] Comment on above: Performed By: #### H STROPN, CMP, BNP ####[facility] Kdhyauavhk1592 [place] [address]Dr. Swathi Reis Urea nitrogen/Creatinine [Mass ratio] 13.3 mg/mg Normal [facility] Comment on above: Performed By: #### H STROPN, CMP, BNP ####[facility] Ifbqfrrlna2817 [place] [address]Dr. Swathi Reis PROTIMEon 07-05-2022 INR Coag (PPP) [Relative time] 1.10 {INR} Normal [facility] Comment on above: Performed By: #### P T, DDIM, PTT ####[facility] Kdnpjeoesc8340 [place] [address]Dr. Inessatracy Reis INR GUIDELINES SEE BELOW Normal [facility] Comment on above: Result Comment: HARRIETT RED INR: 2.0 - 3.0 CONDITIONS NOT LISTED BELOW 2.5 - 3.5 FOR PROSTHETIC HEART VALVE REPLACEMENT 2.5 - 3.5 RECURRENT THROMBOSIS Performed By: #### P T, DDIM, PTT ####[facility] Bxhkcgagfy7259 [place] [address]Dr. Swathi Reis PT Coag (PPP) [Time] 11.8 s Critically high 9.0-11.6 [facility] Comment on above: Performed By: #### P T, DDIM, PTT ####[facility] Knkyplaste4765 [place] [address]Dr. Swathi Reis PTTon 07-05-2022 aPTT Coag (Bld) [Time] 27.2 s Normal 22.3-36.2 [facility] Comment on above: Performed By: #### P T, DDIM, PTT ####[facility] Yyrfgapnoe3989 [place] [address]Dr. Swathi Reis TROPONIN, HIGH SENSITIVITYon 07-05-2022 HSTROP 16.2 pg/mL Normal 4.0-51.3 [facility] Comment on above: Result Comment: CUT- OFF POINTS HAVE BEEN ESTABLISHED BASED ON THE FOURTH UNIVERSAL DEFINITIONS OF MYOCARDIALINFARCTION. THE UPPER REFERENCE LIMIT (URL) OF TROPONIN, DEFINED THE 99TH PERCENTILE OFcTnI DISTRIBUTION IN A REFERENCE POPULATION, HAS BEEN CONFIRMED THE DECISION THRESHOLDFOR HI DIAGNOSIS. Performed By: #### H STROPN, CMP, BNP ####[facility] Irqzyawcgi5147 [place] [address]Dr. Swathi Chato XR CHEST 1 Von 07-05-2022 XR CHEST 1 V Normal [facility] MRI WRIST LT WO CONon 2021 MRI WRIST LT WO CON Normal [facility] XR ANKLE LT MIN 3 Von 09-07- 2022 XR ANKLE LT MIN 3 V Normal [facility] XR WRIST LT MIN 3 Von 2021 XR WRIST LT MIN 3 V Normal [facility] Progress Noteson 05-19-2022 [employer] Authentication Interface Message Text EMERGENCY TRIAGE, TREAT AND TRANSPORT (ET3) DOCUMENTATION OF TELEHEALTH VISIT Date / Time: 05/19/2022 / 1130 Name: Andrew Barros : 1945 SSN: (Not on file) EMS Agency: [facility] [x] Verbal consent obtained [] [...] Completed by: Kristian Mcwilliams MD Normal [facility] CBC AUTO DIFFon 05-07-2022 BASO # 0.1 103/ul Normal 0.0-0.1 [facility] Comment on above: Performed By: #### C BC ####[facility] Dhmrrkhbnk3376 [place] [address]Dr. Swathi Reis Basophils/100 WBC (Bld) 0.5 % Normal 0.2-2.0 [facility] Comment on above: Performed By: #### C BC ####[facility] Lrfwefdnqa[address] [place], [place] [address]Dr. Swathi Reis EO # 0.1 103/ul Normal 0.0-0.7 [facility] Comment on above: Performed By: #### C BC ####[facility] Kkntzfnmrr7[address] [place], [place] [address]Dr. Swathi Reis Eosinophils/100 WBC (Bld) 1.1 % Normal 0.9-7.0 [facility] Comment on above: Performed By: #### C BC ####[facility] Qfsugjnmxe4[address] [place], [place] [address]Dr. Swathi Reis Erythrocyte distribution width (RBC) [Ratio] 13.2 % Normal 11.0-15.0 [facility] Comment on above: Performed By: #### C BC ####[facility] Ccvuebgvig[address] [place], [place] [address]Dr. Swathi Reis Hematocrit (Bld) [Volume fraction] 40.9 % Normal 36.0-48.0 [facility] Comment on above: Performed By: #### C BC ####[facility] Ylioonaypd[address] [place], [place] [address]Dr. Swathi Reis Hemoglobin (Bld) [Mass/Vol] 12.8 g/dL Normal 12.0-16.0 [facility] Comment on above: Performed By: #### C BC ####[facility] Lpozkgdewg[address] [place], [place] [address]Dr. Swathi Reis IG # 0.04 10e3/ul Critically high 0.00-0.03 [facility] Comment on above: Performed By: #### C BC ####[facility] Pobkhkgceb0853 [place] [address]Dr. Inessatracy Reis IG % 0.4 % Normal 0.0-0.5 [facility] Comment on above: Performed By: #### C BC ####[facility] Lsqqzoshmr8358 [place] [address]Dr. Swathi Chato LYMPH # 1.4 103/ul Normal 1.2-3.8 [facility] Comment on above: Performed By: #### C BC ####[facility] Gpzqbmgpkr7166 [place] [address]Dr. Inessatracy Reis Lymphocytes/100 WBC (Bld) 13.2 % Critically low 20.5-60.0 [facility] Comment on above: Performed By: #### C BC ####[facility] Jrbfilcrxy4041 [place] [address]Dr. Inessatracy Reis MANUAL DIFF REQ NO Normal [facility] Comment on above: Performed By: #### C BC ####[facility] Zolxzspqku8609 [place] [address]Dr. Swathi Chato MCH (RBC) [Entitic mass] 29.5 pg Normal 26.7-34.0 [facility] Comment on above: Performed By: #### C BC ####[facility] Zmydnrplsq[address] [place], [place] [address]Dr. Swathi Reis MCHC (RBC) [Mass/Vol] 31.3 g/dL Normal 29.9-35.2 [facility] Comment on above: Performed By: #### C BC ####[facility] Ttstxygexe0904 [place] [address]Dr. Swathi Chato MCV (RBC) [Entitic vol] 94.2 fL Normal 81.0-99.0 [facility] Comment on above: Performed By: #### C BC ####[facility] Qghguaibys0849 [place] [address]Dr. Swathi Reis MONO # 0.9 103/ul Critically high 0.3-0.8 [facility] Comment on above: Performed By: #### C BC ####[facility] Ctujlhlzlt[address] [place], [place] [address]Dr. Swathi Reis Monocytes/100 WBC (Bld) 8.9 % Normal 1.7-12.0 [facility] Comment on above: Performed By: #### C BC ####[facility] Qdwiapmowv1635 [place] [address]Dr. Swathi Reis NEUT # 7.8 103/ul Critically high 1.4-6.5 [facility] Comment on above: Performed By: #### C BC ####[facility] Vancnngxdr0541 [place] [address]Dr. Swathi Reis Neutrophils/100 WBC (Bld) 75.9 % Critically high 43.0-75.0 [facility] Comment on above: Performed By: #### C BC ####[facility] Bfqwjsnfva0532 [place] [address]Dr. Swathi Reis Platelet mean volume (Bld) [Entitic vol] 10.7 fL Normal 9.5-13.5 [facility] Comment on above: Performed By: #### C BC ####[facility] Sjdtbbwfgr6001 [place] [phone]. Swathi Reis PLT 257 103/ul Normal 150-450 [facility] Comment on above: Performed By: #### C BC ####[facility] Btnfhphfaw3647 [place] [phone]. Swathi Reis RBC 4.34 106/ul Normal 4.20-5.40 [facility] Comment on above: Performed By: #### C BC ####[facility] Hnnwkioxkx0598 [place] [phone]. Swathi Reis WBC 10.2 103/ul Normal 4.0-11.0 [facility] Comment on above: Performed By: #### C BC ####[facility] Mjknojfjho3335 [place] [address]Dr. Swathi Reis Covid-19 PCR (CVDTB)on 04-23 SARS-CoV-2 (COVID-19) RNA ÓSCAR+probe Ql (Unsp spec) Not detected Normal NOT DETECTED [facility] Comment on above: Result Comment: This test is not yet approved or cleared by the [place] FDA. When there are no FDA-approved or cleared tests available, and other criteria are met, FDA can make tests available under an emergency access mechanism called an Emergency Use Authorization (EUA). The EUA for this test is supported by the Road Mixer Operator of Health and Human Service's (HHS's) declaration [...] with SARS-CoV-2. Performed By: #### C VDTB ####[facility] Myuquwelam7[address] [place], [place] [address]DrOtto Reis PROF CHEM 8 (BAS METB)on Anion gap [Moles/Vol] 12.0 mmol/L Normal [facility] Comment on above: Performed By: #### B MP ####[facility] Trmcjhifoe9[address] [place], [place] [address]Dr. Swathi Reis Calcium [Mass/Vol] 9.7 mg/dL Normal 8.5-10.1 [facility] [place] Comment on above: Performed By: #### B MP ####[facility] Rkjfedrqmw26[address] [place], [place] [address]Dr. Swathi Reis Chloride [Moles/Vol] 102 mmol/L Normal 98-107 [facility] Comment on above: Performed By: #### B MP ####[facility] Bgfnuebdzl5[address] [place], [place] [address]Dr. Swathi Reis CO2 [Moles/Vol] 31.8 mmol/L Normal 21.0-32.0 [facility] Comment on above: Performed By: #### B MP ####[facility] Kerawqopvo9[address] [place], [place] [address]Dr. Swathi Reis Creatinine [Mass/Vol] 1.22 mg/dL Critically high 0.55-1.02 [facility] Comment on above: Performed By: #### B MP ####[facility] Qaolgyfhtf9417 [place] [phone]. Swathi Reis EGFR-AF GRENADIAN 52 mL/min/1.73m2 Critically low >=60 [facility] Comment on above: Performed By: #### B MP ####[facility] Fxsacnixjc[address] [place], [place] [address]Dr. Swathi Reis EGFR-NON AF GRENADIAN 43 mL/min/1.73m2 Critically low >=60 [facility] Comment on above: Performed By: #### B MP ####[facility] Qjybcbnjhv[address] [place], [place] [address]Dr. Swathi Reis Glucose [Mass/Vol] 249 mg/dL Critically high 74-106 T [facility] Comment on above: Performed By: #### B MP ####[facility] Wwvefoimsb4[address] [place], [place] [address]Dr. Swathi Reis Potassium [Moles/Vol] 3.8 mmol/L Normal 3.5-5.1 [facility] Comment on above: Performed By: #### B MP ####[facility] Yazbygkqkz[address] [place], [place] [address]Dr. Swathi Reis Sodium [Moles/Vol] 142 mmol/L Normal 136-145 [facility] [place] Comment on above: Performed By: #### B MP ####[facility] Lglcoyommt03[address] [place], [place] [address]Dr. Swathi Reis Urea nitrogen [Mass/Vol] 21.0 mg/dL Critically high 7.0-18.0 [facility] Comment on above: Performed By: #### B MP ####[facility] Peftsidffh68[address] [place], [place] [address]Dr. Swathi Reis Urea nitrogen/Creatinine [Mass ratio] 17.2 mg/mg Normal [facility] Comment on above: Performed By: #### B MP ####[facility] Zlmerornsj[address] [place], [place] [address]Dr. Swathi Reis CBC AUTO DIFFon 01-12-2022 BASO # 0.1 103/ul Normal 0.0-0.1 [facility] Comment on above: Performed By: #### C BC ####[facility] Xvgnnpdjcj8469 [place] [phone]. Swathi Reis Basophils/100 WBC (Bld) 0.7 % Normal 0.2-2.0 [facility] Comment on above: Performed By: #### C BC ####[facility] Psfyaxefoi3923 [place] [phone]. Swathi Reis EO # 0.3 103/ul Normal 0.0-0.7 [facility] Comment on above: Performed By: #### C BC ####[facility] Ourtsphkxz5432 [place] [address]Dr. Swathi Reis Eosinophils/100 WBC (Bld) 2.9 % Normal 0.9-7.0 [facility] Comment on above: Performed By: #### C BC ####[facility] [address] [place] [address]Dr. Swathi Reis Erythrocyte distribution width (RBC) [Ratio] 13.2 % Normal 11.0-15.0 [facility] Comment on above: Performed By: #### C BC ####[facility] Pnkpkztyqz[address] [place] [phone]. Swathi Reis Hematocrit (Bld) [Volume fraction] 35.9 % Critically low 36.0-48.0 [facility] Comment on above: Performed By: #### C BC ####[facility] Kuhoubclex[address] [place] [phone]. Swathi Reis Hemoglobin (Bld) [Mass/Vol] 11.6 g/dL Critically low 12.0-16.0 [facility] Comment on above: Performed By: #### C BC ####[facility] Exndzoijtz[address] [place] [phone]. Swathi Reis IG # 0.03 10e3/ul Normal 0.00-0.03 [facility] Comment on above: Performed By: #### C BC ####[facility] Xhakgjfugz[address] [place] [phone]. Swathi Chato IG % 0.4 % Normal 0.0-0.5 [facility] Comment on above: Performed By: #### C BC ####[facility] Yrpxtjvthj[address] [place] [address]Dr. Swathi Chato LYMPH # 1.5 103/ul Normal 1.2-3.8 [facility] Comment on above: Performed By: #### C BC ####[facility] Phdjcexali[address] [place] [address]Dr. Swathi Chato Lymphocytes/100 WBC (Bld) 17.6 % Critically low 20.5-60.0 [facility] Comment on above: Performed By: #### C BC ####[facility] Emefcqtwih[address] [place] [address]Dr. Inessatracy Reis MANUAL DIFF REQ NO Normal [facility] Comment on above: Performed By: #### C BC ####[facility] Doybuqbyrj64[address] [place] [address]Dr. Swathi Chato MCH (RBC) [Entitic mass] 30.0 pg Normal 26.7-34.0 [facility] Comment on above: Performed By: #### C BC ####[facility] Jmxoifdyyz[address] [place], [place] [address]Dr. Swathi Reis MCHC (RBC) [Mass/Vol] 32.3 g/dL Normal 29.9-35.2 [facility] Comment on above: Performed By: #### C BC ####[facility] Tygcwwphjr4[address] [place] [address]Dr. Swathi Chato MCV (RBC) [Entitic vol] 92.8 fL Normal 81.0-99.0 [facility] Comment on above: Performed By: #### C BC ####[facility] Nhjcbiwltx[address] [place], [place] [address]Dr. Swathi Reis MONO # 1.1 103/ul Critically high 0.3-0.8 [facility] Comment on above: Performed By: #### C BC ####[facility] Bqflvjvevs[address] [place] [phone]. Swathi Reis Monocytes/100 WBC (Bld) 12.3 % Critically high 1.7-12.0 [facility] Comment on above: Performed By: #### C BC ####[facility] Xfrtyuwovr5[address] [place] [phone]. Swathi Reis NEUT # 5.7 103/ul Normal 1.4-6.5 [facility] Comment on above: Performed By: #### C BC ####[facility] Eadewpogsj0457 [place] [phone]. Swathi Reis Neutrophils/100 WBC (Bld) 66.1 % Normal 43.0-75.0 [facility] Comment on above: Performed By: #### C BC ####[facility] Warumcjbya4[address] [place] [address]Dr. Swathi Reis Platelet mean volume (Bld) [Entitic vol] 10.9 fL Normal 9.5-13.5 [facility] Comment on above: Performed By: #### C BC ####[facility] Osoryhwpsj5[address] [place] [phone]. Swathi Reis PLT 246 103/ul Normal 150-450 [facility] Comment on above: Performed By: #### C BC ####[facility] Ubjodydrtz[address] [place] [phone]. Swathi eRis RBC 3.87 106/ul Critically low 4.20-5.40 [facility] Comment on above: Performed By: #### C BC ####[facility] Fkijmihlyc58[address] [place] [phone]. Swathi Reis WBC 8.6 103/ul Normal 4.0-11.0 [facility] Comment on above: Performed By: #### C BC ####[facility] Xltrfkueai97[address] [place] [phone]. Swathi Reis CRPon 01-12-2022 CRP [Mass/Vol] mg/L Normal <=1.0 [facility] Comment on above: Performed By: #### C MP, CRP ####[facility] Lxkrfwlfvr5[address] [place] [address]Dr. Swathi Reis POINT OF CARE GLUCOSEon 12-23 Glucose [Mass/Vol] 95 mg/dL Normal 74-106 [facility] [place] Comment on above: Performed By: #### P OCGLUC ####[facility] Dqdwryfkmn[address] [place], [place] [address]Dr. Swathi Reis PROF 14(COMP METB)on 022 Albumin [Mass/Vol] 2.9 g/dL Critically low 3.4-5.0 [facility] Comment on above: Performed By: #### C MP, CRP ####[facility] Lofyjtexhf[address] [place], [place] [address]Dr. Swathi Reis Albumin/Globulin [Mass ratio] 0.8 {ratio} Normal [facility] Comment on above: Performed By: #### C MP, CRP ####[facility] Ekreivxrwx[address] [place], [place] [address]Dr. Swathi Reis ALP [Catalytic activity/Vol] 91 U/L Normal 46-116 [facility] Comment on above: Performed By: #### C MP, CRP ####[facility] Bolpzjhmld[address] [place], [place] [address]Dr. Swathi Reis ALT [Catalytic activity/Vol] 18 U/L Normal 14-59 [facility] Comment on above: Performed By: #### C MP, CRP ####[facility] Fydqjfduzk28[address] [place] [address]Dr. Swathi Reis Anion gap [Moles/Vol] 9.1 mmol/L Normal [facility] Comment on above: Performed By: #### C MP, CRP ####[facility] Faqhbisllu96[address] [place] [address]Dr. Swathi Reis AST [Catalytic activity/Vol] 17 U/L Normal 15-37 [facility] Comment on above: Performed By: #### C MP, CRP ####[facility] Prvoqexaqa[address] [place], [place] [address]Dr. Swathi Reis Bilirubin [Mass/Vol] 0.6 mg/dL Normal 0.2-1.3 [facility] Comment on above: Performed By: #### C MP, CRP ####[facility] Rhgtkmwufj8253 [place] [phone]. Swathi Reis Calcium [Mass/Vol] 8.6 mg/dL Normal 8.5-10.1 [facility] [place] Comment on above: Performed By: #### C MP, CRP ####[facility] Jfclhmigvq2536 [place] [phone]. Swathi Reis Chloride [Moles/Vol] 104 mmol/L Normal 98-107 [facility] Comment on above: Performed By: #### C MP, CRP ####[facility] Bgbllxkaff46[address] [place] [address]Dr. Swathi Reis CO2 [Moles/Vol] 32.1 mmol/L Critically high 22.0-30.0 [facility] Comment on above: Performed By: #### C MP, CRP ####[facility] Bqurjjcczj050[address] [place] [address]Dr. Swathi Reis Creatinine [Mass/Vol] 0.96 mg/dL Normal 0.52-1.04 [facility] Comment on above: Performed By: #### C MP, CRP ####[facility] Mrrsscfguy0064 [place] [address]Dr. Swathi Reis EGFR-AF GRENADIAN >60 Normal >=60 [facility] Comment on above: Performed By: #### C MP, CRP ####[facility] Xkkkbaogeh380[address] [place] [address]Dr. Swathi Chato EGFR-NON AF GRENADIAN 56 mL/min/1.73m2 Critically low >=60 [facility] Comment on above: Performed By: #### C MP, CRP ####[facility] Veltvrputt3908 [place] [phone]. Swathi Chato Globulin (S) [Mass/Vol] 3.5 g/dL Normal [facility] Comment on above: Performed By: #### C MP, CRP ####[facility] Xyejmkfkze7362 [place] [address]Dr. Swathi Reis Glucose [Mass/Vol] 114 mg/dL Critically high 74-106 [facility] Comment on above: Performed By: #### C MP, CRP ####[facility] Ahmxmuzugb6483 [place] [address]Dr. Swathi Reis Potassium [Moles/Vol] 3.2 mmol/L Critically low 3.4-5.0 [facility] Comment on above: Performed By: #### C MP, CRP ####[facility] Dddukqsbeb[address] [place], [place] [address]Dr. Swathi Reis Protein [Mass/Vol] 6.4 g/dL Normal 6.1-8.2 [facility] [place] Comment on above: Performed By: #### C MP, CRP ####[facility] Jxipxudjqj[address] [place], [place] [address]Dr. Swathi Reis Sodium [Moles/Vol] 142 mmol/L Normal 137-145 [facility] [place] Comment on above: Performed By: #### C MP, CRP ####[facility] Xfgngtiizj[address] [place], [place] [address]Dr. Swathi Chato Urea nitrogen [Mass/Vol] 20.0 mg/dL Critically high 7.0-18.0 [facility] Comment on above: Performed By: #### C MP, CRP ####[facility] Cscusgtgvi[address] [place], [place] [address]Dr. Swathi Chato Urea nitrogen/Creatinine [Mass ratio] 20.8 mg/mg Normal [facility] Comment on above: Performed By: #### C MP, CRP ####[facility] Qrajqzfuwu[address] [place], [place] [address]Dr. Swathi Chato T3, TOTAL (TRIIODOTHYRONINE) on 01-12-2022 T3, TOTAL 79 ng/dL Normal 71-180 [facility] Comment on above: Performed By: #### T 3TOTAL ####[facility] Lpjddlgluz[address] [place], [place] [address]Dr. Swathi Chato CBC AUTO DIFFon 01-11-2022 BASO # 0.1 103/ul Normal 0.0-0.1 [facility] Comment on above: Performed By: #### C BC ####[facility] Ckdudfwydp57[address] [place] [phone]. Swathi Reis Basophils/100 WBC (Bld) 0.5 % Normal 0.2-2.0 [facility] Comment on above: Performed By: #### C BC ####[facility] Dhtxqfzbfa2633 [place] [phone]. Swathi Reis EO # 0.1 103/ul Normal 0.0-0.7 [facility] Comment on above: Performed By: #### C BC ####[facility] Fgjvnuqnfr7643 [place] [address]Dr. Swathi Reis Eosinophils/100 WBC (Bld) 1.1 % Normal 0.9-7.0 [facility] Comment on above: Performed By: #### C BC ####[facility] Urosczmbpk[address] [place], [place] [address]Dr. Swathi Reis Erythrocyte distribution width (RBC) [Ratio] 13.1 % Normal 11.0-15.0 [facility] Comment on above: Performed By: #### C BC ####[facility] Vdsrecmnhv[address] [place], [place] [address]Dr. Swathi Reis Hematocrit (Bld) [Volume fraction] 39.1 % Normal 36.0-48.0 [facility] Comment on above: Performed By: #### C BC ####[facility] Cxldqhuvkt5201 [place] [phone]. Swathi Reis Hemoglobin (Bld) [Mass/Vol] 12.7 g/dL Normal 12.0-16.0 [facility] Comment on above: Performed By: #### C BC ####[facility] Vavysabtqk36[address] [place] [phone]. Swathi Reis IG # 0.04 10e3/ul Critically high 0.00-0.03 [facility] Comment on above: Performed By: #### C BC ####[facility] Uhscoxczku2047 [place] [phone]. Swathi Reis IG % 0.4 % Normal 0.0-0.5 [facility] Comment on above: Performed By: #### C BC ####[facility] Nakhuyccot0515 [place] [phone]. Swathi Reis LYMPH # 1.4 103/ul Normal 1.2-3.8 [facility] Comment on above: Performed By: #### C BC ####[facility] Bqwrpmhjqk6135 [place] [phone]. Swathi Reis Lymphocytes/100 WBC (Bld) 12.4 % Critically low 20.5-60.0 [facility] Comment on above: Performed By: #### C BC ####[facility] Rtsrrxsnab0368 [place] [phone]. Swathi Chato MANUAL DIFF REQ NO Normal [facility] Comment on above: Performed By: #### C BC ####[facility] Erqueimehk2969 [place] [phone]. Swathi Reis MCH (RBC) [Entitic mass] 30.0 pg Normal 26.7-34.0 [facility] Comment on above: Performed By: #### C BC ####[facility] Fhpnjgjmja7309 [place] [phone]. Swathi Reis MCHC (RBC) [Mass/Vol] 32.5 g/dL Normal 29.9-35.2 [facility] Comment on above: Performed By: #### C BC ####[facility] Kahsbmeqqx6443 [place] [phone]. Swathi Reis MCV (RBC) [Entitic vol] 92.4 fL Normal 81.0-99.0 [facility] Comment on above: Performed By: #### C BC ####[facility] Wepurebrbr7092 [place] [phone]. Swathi Reis MONO # 1.1 103/ul Critically high 0.3-0.8 [facility] Comment on above: Performed By: #### C BC ####[facility] Dalfvhjngu7003 [place] [phone]. Swathi Reis Monocytes/100 WBC (Bld) 10.1 % Normal 1.7-12.0 [facility] Comment on above: Performed By: #### C BC ####[facility] Sjdeyoawks6137 [place], [place] [address]Xx. Swathi Reis NEUT # 8.3 103/ul Critically high 1.4-6.5 [facility] Comment on above: Performed By: #### C BC ####[facility] Kjtvruqcil9291 [place] [phone]. Swathi Reis Neutrophils/100 WBC (Bld) 75.5 % Critically high 43.0-75.0 [facility] Comment on above: Performed By: #### C BC ####[facility] Qkynstwxld5547 [place] [phone]. Swathi Reis Platelet mean volume (Bld) [Entitic vol] 11.3 fL Normal 9.5-13.5 [facility] Comment on above: Performed By: #### C BC ####[facility] Sdkgpuueso2287 [place] [phone]. Swathi Reis PLT 292 103/ul Normal 150-450 [facility] Comment on above: Performed By: #### C BC ####[facility] B[address]chl[address]fec[address] [place], [place] [id number]. Swathi Reis RBC 4.23 106/ul Normal 4.20-5.40 [facility] Comment on above: Performed By: #### C BC ####[facility] Bzsjfwnvyj2411 [place] [phone]. Swathi Reis WBC 11.0 103/ul Normal 4.0-11.0 [facility] Comment on above: Performed By: #### C BC ####[facility] Fdropabkwv8650 [place] [phone]. Swathi Reis CT HEAD WO CONon 01-11-2022 CT HEAD WO CON Normal [facility] CULTURE URINEon 01-11-2022 CULTURE URINE Culture Observations : LIGHT GROWTH OF MIXED GENITAL ELEONORA. NO POTENTIAL PATHOGENS SEEN. Normal [facility] Comment on above: Performed By: #### U RCX ####[facility] Zgwqgqswxb0468 [place] [phone]. Swathi Reis Covid-19 PCR ([facility])on 12-23 SARS-CoV-2 (COVID-19) RNA ÓSCAR+probe Ql (Unsp spec) Not detected Normal NOT DETECTED [facility] Comment on above: Result Comment: [...] for this test is supported by the [place] of Health and Human Service's declaration that [...] be used). Performed By: #### C VDTBH ####[facility] Wxzbtgaxgd[address] [place], [place] [address]Dr. Swathi Reis EEGon 01-11-2022 EEG Normal [facility] ER URINE PROFILEon 2 Bilirubin Ql (U) Negative Normal NEGATIVE The [facility] Comment on above: Performed By: #### E RUR ####[facility] Vlkjdxvfsm84[address] [place], [place] [address]Dr. Swathi Reis Clarity (U) CLEAR Normal CLEAR [facility] Comment on above: Performed By: #### E RUR ####[facility] Iqvjgfdyju89[address] [place], [place] [address]Dr. Swathi Reis Color (U) LT. YELLOW Normal YELLOW [facility] Comment on above: Performed By: #### E RUR ####[facility] Gwunuhrqbc7[address] [place], [place] [address]Dr. Swathi Reis ERUAHD A micrscopic examina tion will be performed if indicated. Normal [facility] Comment on above: Performed By: #### E RUR ####[facility] Ctiywsmiis44[address] [place] [address]Dr. Swathi Ries Glucose Ql (U) Negative Normal NEGATIVE [facility] Comment on above: Performed By: #### E RUR ####[facility] Ekzizdwesr38[address] [place], [place] [address]Dr. Swathi Reis Hemoglobin Ql (U) Negative Normal NEGATIVE [facility] Comment on above: Performed By: #### E RUR ####[facility] Eeutwwjigs[address] [place], [place] [address]Dr. Swathi Reis Ketones Ql (U) Negative Normal NEGATIVE [facility] Comment on above: Performed By: #### E RUR ####[facility] Sbautnjeuc[address] [place], [place] [address]Dr. Swathi Chato LEUKOCYTES Negative Normal NEGATIVE [facility] Comment on above: Performed By: #### E RUR ####[facility] Jcnpjhdqls17[address] [place], [place] [address]Dr. Swathi Reis Nitrite Ql (U) Negative Normal NEGATIVE [facility] Comment on above: Performed By: #### E RUR ####[facility] Xfpkznpwcg996[address] [place], [place] [address]Dr. Swathi Reis pH (U) 6.0 [pH] Normal 5-9 [facility] Comment on above: Performed By: #### E RUR ####[facility] Xcgcwymhva54[address] [place], [place] [address]Dr. Inessatracy Chato SPEC GRAVITY 1.010 Normal 1.005-<=1.0 25 [facility] Comment on above: Performed By: #### E RUR ####[facility] Jbpepnjewl[address] [place], [place] [address]Dr. Inessatracy Chato UA PROTEIN Negative Normal NEGATIVE/ TRACE [facility] Comment on above: Performed By: #### E RUR ####[facility] Vminjhzmfx8[address] [place], [place] [address]Dr. Swathi Reis UR MICRO IND NOT INDICATED Normal [facility] Comment on above: Performed By: #### E RUR ####[facility] Qsmtingfkr8470[address] [place], [place] [address]Dr. Swathi Reis Urobilinogen Qn (U) 0.2 {Sánchez'U}/dL Normal 0.2 - 1. 0 [facility] Comment on above: Performed By: #### E RUR ####[facility] Euvybbhcnl9[address] [place] [address]Dr. Swathi Reis LACTATE/LACTIC ACIDon 2021 Lactate [Moles/Vol] 0.9 mmol/L Normal 0.7-2.0 [facility] Comment on above: Performed By: #### L ACT ####[facility] Dofaxklios[address] [place], [place] [address]Dr. Swathi Reis Lactate [Moles/Vol] 0.9 mmol/L Normal 0.7-2.0 [facility] Comment on above: Performed By: #### L ACT ####[facility] Yvcytemspt18[address] [place], [place] [address]Dr. Swathi Reis POINT OF CARE GLUCOSEon 12-23 Glucose [Mass/Vol] 175 mg/dL Critically high 74-106 [facility] Comment on above: Performed By: #### P OCGLUC ####[facility] Wicfqciwac16[address] [place], [place] [address]Dr. Swathi Reis Glucose [Mass/Vol] 116 mg/dL Critically high -106 [facility] Comment on above: Performed By: #### P OCGLUC ####[facility] Htfeiyerqq04[address] [place], [place] [address]Dr. Swathi Reis PROF 14(COMP METB)on 022 Albumin [Mass/Vol] 3.3 g/dL Critically low 3.4-5.0 [facility] Comment on above: Performed By: #### H RAFFI, CMP ####[facility] Fvtxuqtmrg[address] [place], [place] [address]Dr. Swathi Reis Albumin/Globulin [Mass ratio] 0.8 {ratio} Normal [facility] Comment on above: Performed By: #### H RAFFI, CMP ####[facility] Wgbidhxnds[address] [place], [place] [address]Dr. Swathi Reis ALP [Catalytic activity/Vol] 110 U/L Normal 46-116 [facility] Comment on above: Performed By: #### H RAFFI, CMP ####[facility] Lsdmedujbo4753 [place] [address]Dr. Swathi Reis ALT [Catalytic activity/Vol] 20 U/L Normal 14-59 [facility] Comment on above: Performed By: #### H RAFFI, CMP ####[facility] Jvjqxhjkwg8540 [place] [address]Dr. Swathi Reis Anion gap [Moles/Vol] 15.9 mmol/L Normal [facility] Comment on above: Performed By: #### H RAFFI, CMP ####[facility] Yxkrceiivh09[address] [place], [place] [address]Dr. Swathi Reis AST [Catalytic activity/Vol] 24 U/L Normal 15-37 [facility] Comment on above: Performed By: #### H RAFFI, CMP ####[facility] Zyimizbknt[address] [place], [place] [address]Dr. Swathi Reis Bilirubin [Mass/Vol] 0.5 mg/dL Normal 0.2-1.3 [facility] Comment on above: Performed By: #### H RAFFI, CMP ####[facility] Kypamheqpm[address] [place], [place] [address]Dr. Swathi Reis Calcium [Mass/Vol] 9.5 mg/dL Normal 8.5-10.1 [facility] [place] Comment on above: Performed By: #### H RAFFI, CMP ####[facility] Ykdcxbgkji[address] [place], [place] [address]Dr. Swathi Reis Chloride [Moles/Vol] 100 mmol/L Normal 98-107 [facility] Comment on above: Performed By: #### H RAFFI, CMP ####[facility] Lftfdobdsf[address] [place], [place] [address]Dr. Swathi Reis CO2 [Moles/Vol] 27.8 mmol/L Normal 22.0-30.0 [facility] Comment on above: Performed By: #### H RAFFI, CMP ####[facility] Vtubecbrfs[address] [place], [place] [id number]. Swathi Reis Creatinine [Mass/Vol] 1.21 mg/dL Critically high 0.52-1.04 [facility] Comment on above: Performed By: #### H RAFFI, CMP ####[facility] Vhzgpvbuhk[address] [place], [place] [address]Dr. Swathi Reis EGFR-AF GRENADIAN 52 mL/min/1.73m2 Critically low >=60 [facility] Comment on above: Performed By: #### H RAFFI, CMP ####[facility] Wlojegunwu54[address] [place], [place] [address]Dr. Swathi Reis EGFR-NON AF GRENADIAN 43 mL/min/1.73m2 Critically low >=60 [facility] Comment on above: Performed By: #### H RAFFI, CMP ####[facility] Ceqlhbcduk137[address] [place], [place] [address]Dr. Inessatracy Reis Globulin (S) [Mass/Vol] 4.1 g/dL Normal [facility] Comment on above: Performed By: #### H RAFFI, CMP ####[facility] Gfkevqomyc[address] [place], [place] [address]Dr. Swathi Reis Glucose [Mass/Vol] 195 mg/dL Critically high 74-106 [facility] Comment on above: Performed By: #### H RAFFI, CMP ####[facility] Seibpufuaq[address] [place], [place] [address]Dr. Swathi Reis Potassium [Moles/Vol] 3.7 mmol/L Normal 3.4-5.0 [facility] Comment on above: Performed By: #### H RAFFI, CMP ####[facility] Ienlkvzafs[address] [place], [place] [address]Dr. Inessatracy Reis Protein [Mass/Vol] 7.4 g/dL Normal 6.1-8.2 [facility] Comment on above: Performed By: #### H RAFFI, CMP ####[facility] Qkafrawqnu[address] [place], [place] [address]Dr. Swathi Reis Sodium [Moles/Vol] 140 mmol/L Normal 137-145 [facility] [place] Comment on above: Performed By: #### H RAFFI, CMP ####[facility] [address] [place] [id number]. Swathi Reis Urea nitrogen [Mass/Vol] 22.0 mg/dL Critically high 7.0-18.0 [facility] Comment on above: Performed By: #### H RAFFI, CMP ####[facility] [address] [place] [phone]. Swathi Reis Urea nitrogen/Creatinine [Mass ratio] 18.2 mg/mg Normal [facility] Comment on above: Performed By: #### H RAFFI, CMP ####[facility] [address] [place] [phone]. Swathi Reis T4on 01-11-2022 T4 [Mass/Vol] 9.10 ug/dL Normal 5.53-11.00 [facility] Comment on above: Performed By: #### T SH, T4 ####[facility] [address] [place] [address]Dr. Swathi Reis TROPONIN, HIGH SENSITIVITYon 01-11-2022 HSTROP 13.7 pg/mL Normal 4.0-35.5 [facility] Comment on above: Result Comment: CUT- OFF POINTS HAVE BEEN ESTABLISHED BASED ON THE FOURTH UNIVERSAL DEFINITIONS OF MYOCARDIALINFARCTION. THE UPPER REFERENCE LIMIT (URL) OF TROPONIN, DEFINED THE 99TH PERCENTILE OFcTnI DISTRIBUTION IN A REFERENCE POPULATION, HAS BEEN CONFIRMED THE DECISION THRESHOLDFOR HI DIAGNOSIS. Performed By: #### H RAFFI, CMP ####[facility] [address] [place] [address]Dr. Swathi Reis TSHon 01-11-2022 TSH 2.618 uIU/mL Normal 0.470-4.680 [facility] Comment on above: Performed By: #### T SH, T4 ####[facility] [address] [place] [address]Dr. Swathi Reis TSH RANGE SEE BELOW Normal [facility] Comment on above: Result Comment: <0.3 4 UIU/ml HYPERTHYROID 0.34-5.60 UIU/ml EUTHYROID >5.60 UIU/ml HYPOTHYROID Performed By: #### T SH, T4 ####[facility] [address] [place] [address]Dr. Swathi Chato CBC AUTO DIFFon 01-09-2022 BASO # 0.1 103/ul Normal 0.0-0.1 [facility] Comment on above: Performed By: #### C BC ####[facility] [address] [place] [address]Dr. Swathi Reis Basophils/100 WBC (Bld) 0.6 % Normal 0.2-2.0 [facility] Comment on above: Performed By: #### C BC ####[facility] [address] [place], [place] [address]Dr. Swathi Reis EO # 0.2 103/ul Normal 0.0-0.7 [facility] Comment on above: Performed By: #### C BC ####[facility] [address] [place], [place] [address]Dr. Swathi Reis Eosinophils/100 WBC (Bld) 2.7 % Normal 0.9-7.0 [facility] Comment on above: Performed By: #### C BC ####[facility] Spucx[address]up[address] [place], [place] [address]Dr. Inessatracy Reis Erythrocyte distribution width (RBC) [Ratio] 13.2 % Normal 11.0-15.0 [facility] Comment on above: Performed By: #### C BC ####[facility] [address] [place], [place] [address]Dr. Swathi Reis Hematocrit (Bld) [Volume fraction] 39.7 % Normal 36.0-48.0 [facility] Comment on above: Performed By: #### C BC ####[facility] [address] [place], [place] [address]Dr. Swathi Reis Hemoglobin (Bld) [Mass/Vol] 12.7 g/dL Normal 12.0-16.0 [facility] Comment on above: Performed By: #### C BC ####[facility] [address] [place], [place] [address]Dr. Swathi Reis IG # 0.04 10e3/ul Critically high 0.00-0.03 [facility] Comment on above: Performed By: #### C BC ####[facility] [address] [place] [address]Dr. Swathi Reis IG % 0.4 % Normal 0.0-0.5 [facility] Comment on above: Performed By: #### C BC ####[facility] [address] [place] [address]DrOtto Reis LYMPH # 1.4 103/ul Normal 1.2-3.8 [facility] Comment on above: Performed By: #### C BC ####[facility] [address] [place] [address]DrOtto Reis Lymphocytes/100 WBC (Bld) 15.9 % Critically low 20.5-60.0 [facility] Comment on above: Performed By: #### C BC ####[facility] W[address]oke[address] [place] [address]DrOtto Reis MANUAL DIFF REQ NO Normal [facility] Comment on above: Performed By: #### C BC ####[facility] [address] [place] [phone]. Swathi Chato MCH (RBC) [Entitic mass] 30.0 pg Normal 26.7-34.0 [facility] Comment on above: Performed By: #### C BC ####[facility] [address] [place], [place] [address]Dr. Inessatracy Reis MCHC (RBC) [Mass/Vol] 32.0 g/dL Normal 29.9-35.2 [facility] Comment on above: Performed By: #### C BC ####[facility] [address] [place], [place] [id number] Reis MCV (RBC) [Entitic vol] 93.9 fL Normal 81.0-99.0 [facility] Comment on above: Performed By: #### C BC ####[facility] [address] [place] [phone] Reis MONO # 0.9 103/ul Critically high 0.3-0.8 [facility] Comment on above: Performed By: #### C BC ####[facility] Efc[address] [place] [phone]. Swathi Reis Monocytes/100 WBC (Bld) 9.7 % Normal 1.7-12.0 [facility] Comment on above: Performed By: #### C BC ####[facility] Glmxy[address]vxk[address] [place] [phone]. Swathi Reis NEUT # 6.3 103/ul Normal 1.4-6.5 [facility] Comment on above: Performed By: #### C BC ####[facility] [address] [place] [address]Dr. Swathi Reis Neutrophils/100 WBC (Bld) 70.7 % Normal 43.0-75.0 [facility] Comment on above: Performed By: #### C BC ####[facility] [address] [place] [address]Dr. Swathi Reis Platelet mean volume (Bld) [Entitic vol] 10.7 fL Normal 9.5-13.5 [facility] Comment on above: Performed By: #### C BC ####[facility] [address] [place] [address]Dr. Swathi Reis PLT 269 103/ul Normal 150-450 [facility] Comment on above: Performed By: #### C BC ####[facility] [address] [place] [address]Dr. Swathi Reis RBC 4.23 106/ul Normal 4.20-5.40 [facility] Comment on above: Performed By: #### C BC ####[facility] Ms[address] [place] [phone]. Swathi Reis WBC 8.9 103/ul Normal 4.0-11.0 [facility] Comment on above: Performed By: #### C BC ####[facility] [address] [place] [phone]. Swathi Reis FREE T3on 01-09-2022 FREE T3 2.19 pg/mlL Critically low 2.77-5.27 [facility] Comment on above: Performed By: #### T SH, T4, FT3, LIPID, CMP ####[facility] [address] [place] [address]Dr. Swathi Reis GLYCOHEMOGLOBIN A1Con 2021 ADA RECOMMENDATION ADA THERAPEUTIC TARG ET 6.0 - 7.0 ACTION SUGGESTED > 7.0 Normal [facility] Comment on above: Performed By: #### A 1C ####[facility] [address] [place], [place] [address]Dr. Swathi Reis Glucose [Mass/Vol] 137 mg/dL Normal [facility] [place] Comment on above: Performed By: #### A 1C ####[facility] Omp[address] [place], [place] [address]Dr. Swathi Reis HbA1c (Bld) [Mass fraction] 6.4 % Critically high <=6.0 [facility] Comment on above: Performed By: #### A 1C ####[facility] Bjleb[address] [place], [place] [address]Dr. Swathi Reis LIPID PROFILEon 01-09-2022 CHOL-HDL RATIO NORM SEE BELOW Normal [facility] Comment on above: Result Comment: 3.3 - 4.4 LOW RISK 4.4 - 7.1 AVERAGE RISK 7.1 - 11.0 MODERATE RISK >11.0 HIGH RISK Performed By: #### T SH, T4, FT3, LIPID, CMP ####[facility] Ng[address]wql[address] [place], [place] [address]Dr. Swathi Reis Cholesterol [Mass/Vol] 238 mg/dL Critically high <=200 [facility] Comment on above: Performed By: #### T SH, T4, FT3, LIPID, CMP ####[facility] [address] [place] [address]Dr. Swathi Reis Cholesterol in HDL [Mass/Vol] 95 mg/dL Critically high 40-60 [facility] Comment on above: Performed By: #### T SH, T4, FT3, LIPID, CMP ####[facility] [address] [place], [place] [address]Dr. Yitracy Reis Cholesterol in LDL [Mass/Vol] 121.0 mg/dL Normal [facility] Comment on above: Performed By: #### T SH, T4, FT3, LIPID, CMP ####[facility] [address] [place] [address]Dr. Swathi Reis Cholesterol.total/Chol esterol in HDL [Mass ratio] 2.5 {ratio} Normal [facility] Comment on above: Performed By: #### T SH, T4, FT3, LIPID, CMP ####[facility] [address] [place] [address]Dr. Swathi Reis HDL NORMAL > or = 60 mg/dl - LO W CARDIOVASCULAR RISK <40 mg/dl - HIGH CARDIOVASCULAR RISK Normal [facility] Comment on above: Performed By: #### T SH, T4, FT3, LIPID, CMP ####[facility] [address]xcs[address] [place] [address]Dr. Swathi Reis LDL CALC NORMAL SEE BELOW Normal [facility] Comment on above: Result Comment: <100 mg/dl OPTIMAL 100 - 129 mg/dl NEAR OR ABOVE OPTIMAL 130 - 159 mg/dl BORDERLINE HIGH 160 - 189 mg/dl HIGH >190 mg/dl VERY HIGH Performed By: #### T SH, T4, FT3, LIPID, CMP ####[facility] [address]vwoq[address] [place] [address]Dr. Swathi Reis Triglyceride [Mass/Vol] 110 mg/dL Normal <=150 [facility] Comment on above: Performed By: #### T SH, T4, FT3, LIPID, CMP ####[facility] [address] [place] [address]Dr. Swathi Reis VLDL CALC 22.0 mg/dL Normal [facility] Comment on above: Performed By: #### T SH, T4, FT3, LIPID, CMP ####[facility] [address] [place] [address]Dr. Swathi Reis PROF 14(COMP METB)on 022 Albumin [Mass/Vol] 3.5 g/dL Normal 3.4-5.0 [facility] [place] Comment on above: Performed By: #### T SH, T4, FT3, LIPID, CMP ####[facility] [address]xvtd[address] [place] [address]Dr. Swathi Reis Albumin/Globulin [Mass ratio] 0.9 {ratio} Normal [facility] Comment on above: Performed By: #### T SH, T4, FT3, LIPID, CMP ####[facility] [address] [place] [address]Dr. Swathi Reis ALP [Catalytic activity/Vol] 112 U/L Normal 46-116 [facility] Comment on above: Performed By: #### T SH, T4, FT3, LIPID, CMP ####[facility] E[address] [place] [address]Dr. Swathi Reis ALT [Catalytic activity/Vol] 14 U/L Normal 14-59 [facility] Comment on above: Performed By: #### T SH, T4, FT3, LIPID, CMP ####[facility] Zrvxs[address]ymr[address] [place] [address]Dr. Swathi Reis Anion gap [Moles/Vol] 10.4 mmol/L Normal [facility] Comment on above: Performed By: #### T SH, T4, FT3, LIPID, CMP ####[facility] [address] [place], [place] [address]Dr. Swathi Reis AST [Catalytic activity/Vol] 18 U/L Normal 15-37 [facility] Comment on above: Performed By: #### T SH, T4, FT3, LIPID, CMP ####[facility] [address] [place] [address]Dr. Swathi Reis Bilirubin [Mass/Vol] 0.6 mg/dL Normal 0.2-1.3 [facility] Comment on above: Performed By: #### T SH, T4, FT3, LIPID, CMP ####[facility] [address] [place], [place] [address]Dr. Swathi Reis Calcium [Mass/Vol] 9.4 mg/dL Normal 8.5-10.1 [facility] [place] Comment on above: Performed By: #### T SH, T4, FT3, LIPID, CMP ####[facility] [address]qjoy[address] [place] [address]Dr. Swathi Reis Chloride [Moles/Vol] 101 mmol/L Normal 98-107 [facility] Comment on above: Performed By: #### T SH, T4, FT3, LIPID, CMP ####[facility] [address]kyts[address] [place] [address]Dr. Swathi Reis CO2 [Moles/Vol] 33.2 mmol/L Critically high 22.0-30.0 [facility] Comment on above: Performed By: #### T SH, T4, FT3, LIPID, CMP ####[facility] Fejtultmlb[address] [place], [place] [address]Dr. Swathi Reis Creatinine [Mass/Vol] 1.13 mg/dL Critically high 0.52-1.04 [facility] Comment on above: Performed By: #### T SH, T4, FT3, LIPID, CMP ####[facility] [address]wncizv[address] [place], [place] [address]Dr. Swathi Reis EGFR-AF GRENADIAN 57 mL/min/1.73m2 Critically low >=60 [facility] Comment on above: Performed By: #### T SH, T4, FT3, LIPID, CMP ####[facility] [address]ks[address]uq[address] [place], [place] [address]Dr. Swathi Reis EGFR-NON AF GRENADIAN 47 mL/min/1.73m2 Critically low >=60 [facility] Comment on above: Performed By: #### T SH, T4, FT3, LIPID, CMP ####[facility] [address]gkfkds[address] [place], [place] [address]Dr. Swathi Reis Globulin (S) [Mass/Vol] 4.1 g/dL Normal [facility] Comment on above: Performed By: #### T SH, T4, FT3, LIPID, CMP ####[facility] [address]spl[address]eeqr[address] [place], [place] [address]Dr. Swathi Reis Glucose [Mass/Vol] 144 mg/dL Critically high 74-106 [facility] Comment on above: Performed By: #### T SH, T4, FT3, LIPID, CMP ####[facility] [address]ud[address] [place] [address]Dr. Swathi Reis Potassium [Moles/Vol] 3.6 mmol/L Normal 3.4-5.0 [facility] Comment on above: Performed By: #### T SH, T4, FT3, LIPID, CMP ####[facility] [address]qsps[address] [place] [address]Dr. Swathi Reis Protein [Mass/Vol] 7.6 g/dL Normal 6.1-8.2 [facility] Comment on above: Performed By: #### T SH, T4, FT3, LIPID, CMP ####[facility] Szotqtxs[address] [place], [place] [address]Dr. Swathi Reis Sodium [Moles/Vol] 141 mmol/L Normal 137-145 [facility] Comment on above: Performed By: #### T SH, T4, FT3, LIPID, CMP ####[facility] [address]qcr[address]xmr[address] [place], [place] [address]Dr. Swathi Reis Urea nitrogen [Mass/Vol] 22.0 mg/dL Critically high 7.0-18.0 [facility] Comment on above: Performed By: #### T SH, T4, FT3, LIPID, CMP ####[facility] [address]fe[address] [place], [place] [address]Dr. Swathi Reis Urea nitrogen/Creatinine [Mass ratio] 19.5 mg/mg Normal [facility] Comment on above: Performed By: #### T SH, T4, FT3, LIPID, CMP ####[facility] [address] [place], [place] [address]Dr. Swathi Reis T4on 01-09-2022 T4 [Mass/Vol] 8.80 ug/dL Normal 5.53-11.00 [facility] Comment on above: Performed By: #### T SH, T4, FT3, LIPID, CMP ####[facility] [address]zzlemsxar[address] [place], [place] [address]Dr. Swathi Reis TSHon 01-09-2022 TSH 3.176 uIU/mL Normal 0.470-4.680 [facility] Comment on above: Performed By: #### T SH, T4, FT3, LIPID, CMP ####[facility] [address] [place] [phone]. Inessatracy Reis TSH RANGE SEE BELOW Normal [facility] Comment on above: Result Comment: <0.3 4 UIU/ml HYPERTHYROID 0.34-5.60 UIU/ml EUTHYROID >5.60 UIU/ml HYPOTHYROID Performed By: #### T SH, T4, FT3, LIPID, CMP ####[facility] S[address] [place] [phone]. Inessatracy Chato VITAMIN D 25 OHon 01-09-2022 VIT D 25-OH 64.4 ng/mL Normal [facility] Comment on above: Performed By: #### V ITAD ####[facility] [address] [place] [phone]. Inessatracy Reis VIT D RANGES SEE BELOW Normal [facility] Comment on above: Result Comment: <20 ng/mL Vit D deficient 20 - <30 ng/mL Vit D insufficient 30 - 100 ng/mL Vit D sufficient >100 ng/mL Potential Toxicity Performed By: #### V ITAD ####[facility] [address] [place] [address]Dr. Swathi Reis MG MAMM DIAGNOSTIC 3D GISELE CA Don 01-05-2022 MG MAMM DIAGNOSTIC 3D GISELE CAD Normal [facility] FRESH FROZ PLASMAon 11-24-19 FRESH FROZ PLASMA Normal [facility] Comment on above: Performed By: #### F FP ####[facility] [address] [place] [phone]. Inessatracy Chato Creatinine and Glomerular fi ltration rate.predicted panel (S/P/Bld)Ordered By: Shaka Echavarria on 11-11-2021 Creatinine [Mass/Vol] 1.38 mg/dL 0.44-1.[address] [facility] Estimated glomerular filtrat ion rate (GFR) non- AmericanOrdered By: Shaka Echavarria on 11-11-2021 GFR/1.73 sq M.predicted among non-blacks MDRD (S/P/Bld) [Vol rate/Area] 37 mL/Min [facility] Glucose Glucometer (BldC) [M ass/Vol]Ordered By: Shaka Echavarria on 11-11-2021 Glucose [Mass/Vol] 233 mg/dL [facility] Comment on above: Random Glucose Refer ence Range is dependent on time and content of last meal. Glucose of more than 200 mg/dL in a nonstressed, ambulatory subject supports the diagnosis of Diabetes Mellitus. No Panel InformationOrdered By: Shaka Echavarria on 11-11-2021 Bedside Glucose Comment Glu2: cleaned meter [facility] Estimated GFR () 45 mL/Min [facility] Comment on above: GFR estimated refere nce range: According to KDOQI guidelines, <60 ml/min/1.73m2 is sufficient to diagnose a patient with chronic kidney disease. Pharmacy Creatinine Clearance (Chem 29.48 [facility] Serum or plasma calcium missy urement (mass/volume)Ordered By: Shaka Echavarria on 11-11-2021 Calcium [Mass/Vol] 8.9 mg/dL 8.2-10.2 [facility] Serum or plasma chloride ken surement (moles/volume)Ordered By: Shaka Echavarria on 11-11-2021 Chloride [Moles/Vol] 94 mmol/L 95-114 [facility] Serum or plasma glucose missy urement (mass/volume)Ordered By: Shaka Echavarria on 11-11-2021 Glucose [Mass/Vol] 297 mg/dL 70-100 [facility] Comment on above: Delta: 179 on -0432ADA recommended reference rangeRandom Glucose Reference Range is dependent on time and content of last meal. Glucose of more than 200 mg/dL in a nonstressed, ambulatory subject supports the diagnosis of Diabetes Mellitus. Serum or plasma potassium me asurement (moles/volume)Ordered By: Shaka Echavarria on 11-11-2021 Potassium [Moles/Vol] 3.7 mmol/L 3.5-5.[address] [facility] Serum or plasma sodium measu rement (moles/volume)Ordered By: Shaka Echavarria on 11-11-2021 Sodium [Moles/Vol] 132 mmol/L 136-146 [facility] Serum or plasma total carbon dioxide measurement (moles/volume)Ordered By: Shaka Echavarria on 11-11-2021 CO2 [Moles/Vol] 22.6 mmol/L 22.0-30.0 [facility] Serum or plasma urea nitroge n measurement (mass/volume)Ordered By: Shaka Echavarria on 11-11-2021 Urea nitrogen [Mass/Vol] 19 mg/dL 9-23 [facility] Basophils Auto (Bld) [#/Vol] Ordered By: Salma Cortes on 11-10-2021 Basophils (Bld) [#/Vol] 0.0 10*3/uL 0.0-0.2 [facility] Basophils/100 WBC Auto (Bld) Ordered By: Salma Cortes on 11-10-2021 Basophils/100 WBC (Bld) 0.2 % [facility] Blood hemoglobin measurement (mass/volume)Ordered By: Salma Cortes on 11-10-2021 Hemoglobin (Bld) [Mass/Vol] 13.2 g/dL 11.8-15.4 [facility] Blood leukocytes automated c ount (number/volume)Ordered By: Salma Cortes on 11-10-2021 WBC (Bld) [#/Vol] 10.7 10*3/uL 4.5-11.0 [facility] Eosinophils Auto (Bld) [#/Vo l]Ordered By: Salma Cortes on 11-10-2021 Eosinophils (Bld) [#/Vol] 0.0 10*3/uL 0.0-0.45 [facility] Eosinophils/100 WBC Auto (Bl d)Ordered By: Salma Cortes on 11-10-2021 Eosinophils/100 WBC (Bld) 0.1 % [facility] Erythrocyte distribution wid th Auto (RBC) [Ratio]Ordered By: Salma Cortes on 11-10-2021 Erythrocyte distribution width (RBC) [Ratio] 13.8 % 11.9-15.3 [facility] Hematocrit Auto (Bld) [Volum e fraction]Ordered By: Salma Cortes on 11-10-2021 Hematocrit (Bld) [Volume fraction] 39.1 % 34.0-46.4 [facility] - CoagulationOrde red By: Salma Cortes on 11-10-2021 PT Coag (PPP) [Time] 12.6 s 9.0-12.9 [facility] - Hematology and Cell countsOrdered By: Salma Cortes on 11-10-2021 Nucleated RBC/100 WBC (Bld) [Ratio] 0.1 % 0-0.5 [facility] Lymphocytes Auto (Bld) [#/Vo l]Ordered By: Salma Cortes on 11-10-2021 Lymphocytes (Bld) [#/Vol] 1.3 10*3/uL 1.00-4.8 [facility] Lymphocytes/100 WBC Auto (Bl d)Ordered By: Salma Cortes on 11-10-2021 Lymphocytes/100 WBC (Bld) 12.0 % [facility] MCH Auto (RBC) [Entitic mass ]Ordered By: Salma Cortes on 11-10-2021 MCH (RBC) [Entitic mass] 30.4 pg 24.7-34.3 [facility] MCHC Auto (RBC) [Mass/Vol]Or dered By: Salma Cortes on 11-10-2021 MCHC (RBC) [Mass/Vol] 33.8 g/dL 32.0-35.[address] [facility] MCV Auto (RBC) [Entitic vol] Ordered By: Salma Cortes on 11-10-2021 MCV (RBC) [Entitic vol] 90.0 fL 80-100 [facility] Monocytes Auto (Bld) [#/Vol] Ordered By: Salma Cortes on 11-10-2021 Monocytes (Bld) [#/Vol] 1.2 10*3/uL 0.0-0.8 [facility] Monocytes/100 WBC Auto (Bld) Ordered By: Salma Cortes on 11-10-2021 Monocytes/100 WBC (Bld) 10.8 % [facility] Neutrophils Auto (Bld) [#/Vo l]Ordered By: Salma Cortes on 11-10-2021 Neutrophils (Bld) [#/Vol] 8.2 10*3/uL 1.8-7.7 [facility] Neutrophils/100 WBC Auto (Bl d)Ordered By: Salma Cortes on 11-10-2021 Neutrophils/100 WBC (Bld) 76.9 % [facility] Platelet mean volume Auto (B ld) [Entitic vol]Ordered By: Salma Cortes on 11-10-2021 Platelet mean volume (Bld) [Entitic vol] 9.2 fL 6.3-10.7 [facility] Platelet poor plasma interna tional normalized ratio (INR) by coagulation assay (relatOrdered By: Salma Cortes on 11-10-2021 INR Coag (PPP) [Relative time] 1.1 {INR} [facility] Comment on above: INR Therapeutic Rang e [...] 11-10-2021 Platelets (Bld) [#/Vol] 261 10*3/uL 150-450 [facility] RBC Auto (Bld) [#/Vol]Ordere d By: Salma Cortes on 11-10-2021 RBC (Bld) [#/Vol] 4.35 10*6/uL 3.60-5.00 [facility] BNPon 11-09-2021 Natriuretic peptide B (Bld) [Mass/Vol] 914.0 pg/mL Normal <=1,800.0 [facility] Comment on above: Performed By: #### C DORYS JERRY, BNP ####[facility] [address] [place], [place] [address]AuOtto Swathi Reis CARDIAC TRINA ADMITon 022 CK [Catalytic activity/Vol] 50 U/L Normal 30-135 [facility] Comment on above: Performed By: #### C ROSALINO, CMP, BNP ####[facility] [address] [place] [phone]. Swathi Reis CK.MB [Mass/Vol] 1.14 ng/mL Normal <=2.37 [facility] Comment on above: Performed By: #### C MADM, CMP, BNP ####[facility] [address] [place] [phone]. Swathi Reis HSTROP 12.8 pg/mL Normal 4.0-35.5 [facility] [facility] Comment on above: Result Comment: CUT- OFF POINTS HAVE BEEN ESTABLISHED BASED ON THE FOURTH UNIVERSAL DEFINITIONS OF MYOCARDIALINFARCTION. THE UPPER REFERENCE LIMIT (URL) OF TROPONIN, DEFINED THE 99TH PERCENTILE OFcTnI DISTRIBUTION IN A REFERENCE POPULATION, HAS BEEN CONFIRMED THE DECISION THRESHOLDFOR HI DIAGNOSIS. Performed By: #### C MADM, CMP, BNP ####[facility] [address] [place] [address]Dr. Swathi Chato GUANACO 53.0 ng/mL Normal <=61.5 [facility] Comment on above: Performed By: #### C MADM, CMP, BNP ####[facility] Lmnk[address]ur[address] [place] [id number]. Swathi Reis CBC AUTO DIFFon 11-09-2021 BASO # 0.0 103/ul Normal 0.0-0.1 [facility] Comment on above: Performed By: #### C BC ####[facility] N[address]ew[address] [place] [address]Dr. Inessatracy Reis Basophils/100 WBC (Bld) 0.3 % Normal 0.2-2.0 [facility] Comment on above: Performed By: #### C BC ####[facility] Vbzjcyjyal[address] [place] [id number]. Inessatracy Reis EO # 0.0 103/ul Normal 0.0-0.7 [facility] Comment on above: Performed By: #### C BC ####[facility] Kanggvgmuw6[address] [place] [id number]. Inessatracy Reis Eosinophils/100 WBC (Bld) 0.2 % Critically low 0.9-7.0 [facility] Comment on above: Performed By: #### C BC ####[facility] Hbapydelfg25[address] [place] [address]Dr. Inessatracy Chato Erythrocyte distribution width (RBC) [Ratio] 13.1 % Normal 11.0-15.0 [facility] Comment on above: Performed By: #### C BC ####[facility] Utyomhwagk[address] [place] [address]Dr. Swathi Reis Hematocrit (Bld) [Volume fraction] 40.8 % Normal 36.0-48.0 [facility] Comment on above: Performed By: #### C BC ####[facility] Egxmqajles[address] [place], [place] [address]Dr. Swathi Reis Hemoglobin (Bld) [Mass/Vol] 13.3 g/dL Normal 12.0-16.0 [facility] Comment on above: Performed By: #### C BC ####[facility] [address] [place], [place] [address]Dr. Swathi Reis IG # 0.05 10e3/ul Critically high 0.00-0.03 [facility] Comment on above: Performed By: #### C BC ####[facility] Wipnxpgrev[address] [place], [place] [address]Dr. Swathi Reis IG % 0.4 % Normal 0.0-0.5 [facility] Comment on above: Performed By: #### C BC ####[facility] Hrx[address] [place], [place] [address]Dr. Swathi Reis LYMPH # 1.0 103/ul Critically low 1.2-3.8 [facility] Comment on above: Performed By: #### C BC ####[facility] Oq[address] [place], [place] [address]Dr. Swathi Reis Lymphocytes/100 WBC (Bld) 8.3 % Critically low 20.5-60.0 [facility] Comment on above: Performed By: #### C BC ####[facility] Gxvatobf[address] [place], [place] [address]Dr. Swathi Reis MANUAL DIFF REQ NO Normal [facility] Comment on above: Performed By: #### C BC ####[facility] Hionddalyi[address] [place] [address]Dr. Swathi Reis MCH (RBC) [Entitic mass] 29.8 pg Normal 26.7-34.0 [facility] Comment on above: Performed By: #### C BC ####[facility] Nc[address]olfutb[address] [place] [address]Dr. Swathi Reis MCHC (RBC) [Mass/Vol] 32.6 g/dL Normal 29.9-35.2 [facility] Comment on above: Performed By: #### C BC ####[facility] Aaahogrloy[address] [place] [address]DrOtto Reis MCV (RBC) [Entitic vol] 91.5 fL Normal 81.0-99.0 [facility] Comment on above: Performed By: #### C BC ####[facility] Bklsef[address]xi[address] [place], [place] [address]DrOtto Reis MONO # 0.6 103/ul Normal 0.3-0.8 [facility] Comment on above: Performed By: #### C BC ####[facility] Isazvyvnui[address] [place], [place] [address]DrOtto Reis Monocytes/100 WBC (Bld) 4.9 % Normal 1.7-12.0 [facility] Comment on above: Performed By: #### C BC ####[facility] X[address]ixjtyq[address] [place], [place] [address]DrOtto Reis NEUT # 10.5 103/ul Critically high 1.4-6.5 [facility] Comment on above: Performed By: #### C BC ####[facility] Pqdbjlidkl[address] [place], [place] [address]DrOtto Reis Neutrophils/100 WBC (Bld) 85.9 % Critically high 43.0-75.0 [facility] Comment on above: Performed By: #### C BC ####[facility] Liopacixkp[address] [place], [place] [address]DrOtto Reis Platelet mean volume (Bld) [Entitic vol] 10.9 fL Normal 9.5-13.5 [facility] Comment on above: Performed By: #### C BC ####[facility] [address] [place], [place] [address]Mg. Swathi Reis PLT 290 103/ul Normal 150-450 [facility] Comment on above: Performed By: #### C BC ####[facility] Dhlyqmqqfq36[address] [place], [place] [address]Fl. Swathi Reis RBC 4.46 106/ul Normal 4.20-5.40 [facility] Comment on above: Performed By: #### C BC ####[facility] Lusvvigtxu04[address] [place], [place] [address]Ll. Swathi Reis WBC 12.3 103/ul Critically high 4.0-11.0 [facility] Comment on above: Performed By: #### C BC ####[facility] J[address]ws[address]bpq67[address] [place], [place] [address]Tk. Sw[address] Reis CT HEAD WO CONon 11-09-2021 CT HEAD WO CON Normal [facility] Covid-19 PCR ([facility])on 10-24 SARS-CoV-2 (COVID-19) RNA ÓSCAR+probe Ql (Unsp spec) Not detected Normal NOT DETECTED [facility] Comment on above: Result Comment: [...] for this test is supported by the [place] of Health and Human Service's declaration that [...] be used). Performed By: #### C VDTB ####[facility] X[address]ek[address] [place] [address]Dr. Swathi Reis ER URINE PROFILEon 2 Bilirubin Ql (U) Negative Normal NEGATIVE [facility] Comment on above: Performed By: #### Amaury WATERS UMICRO ####[facility] W[address]augtczd[address] [place] [address]Dr. Swathi Chato Clarity (U) CLEAR Normal CLEAR [facility] Comment on above: Performed By: #### Amaury WATERS UMICRO ####[facility] Twgmltyetu[address] [place], [place] [address]Dr. Swathi Chato Color (U) LT. YELLOW Normal YELLOW [facility] Comment on above: Performed By: #### Amaury WATERS UMICRO ####[facility] Rtyqnwxxvg[address] [place], [place] [address]Dr. Swathi Reis ERUAHD A micrscopic examina tion will be performed if indicated. Normal [facility] Comment on above: Performed By: #### Amaury WATERS UMICRO ####[facility] G[address]xdvobqd[address] [place], [place] [address]Dr. Swathi Reis Glucose Ql (U) Negative Normal NEGATIVE [facility] Comment on above: Performed By: #### Amaury WATERS UMICRO ####[facility] Mckdkvxqmx[address] [place], [place] [address]Dr. Swathi Reis Hemoglobin Ql (U) TRACE-INTACT Abnormal NEGATIVE [facility] Comment on above: Performed By: #### Amaury WATERS UMICRO ####[facility] [address]um[address]jhvg[address] [place] [address]Dr. Swathi Reis Ketones Ql (U) Negative Normal NEGATIVE [facility] Comment on above: Performed By: #### Amaury WATERS UMICRO ####[facility] Jrtkezlvro[address] [place] [address]Dr. Swathi Reis LEUKOCYTES Negative Normal NEGATIVE [facility] Comment on above: Performed By: #### IVÁN SOSAICRO ####[facility] Vpwaebv[address]hl[address] [place] [address]Dr. Swathi Reis Nitrite Ql (U) Negative Normal NEGATIVE [facility] Comment on above: Performed By: #### REYNOLD SOSA ####[facility] Z[address]beremn[address] [place] [address]Dr. Swathi Reis pH (U) 6.0 [pH] Normal 5-9 [facility] Comment on above: Performed By: #### REYNOLD SOSA ####[facility] Cpysuyzbfa[address] [place], [place] [address]Dr. Swathi Reis SPEC GRAVITY 1.010 Normal 1.005-<=1.0 25 [facility] Comment on above: Performed By: #### REYNOLD SOSA ####[facility] Mdafdsshjz[address] [place], [place] [address]Dr. Swathi Reis UA PROTEIN TRACE Normal NEGATIVE/ TRACE [facility] Comment on above: Performed By: #### REYNOLD SOSA ####[facility] Maqdqhstuc[address] [place], [place] [address]Dr. Swathi Reis UR MICRO IND INDICATED Normal [facility] Comment on above: Performed By: #### REYNOLD SOSA ####[facility] Sezymdws[address] [place], [place] [address]Dr. Swathi Reis Urobilinogen Qn (U) 0.2 {Sánchez'U}/dL Normal 0.2 - 1. 0 [facility] Comment on above: Performed By: #### REYNOLD SOSA ####[facility] E[address]nywwjpb[address] [place], [place] [address]Dr. Swathi Reis PROF 14(COMP METB)on 022 Albumin [Mass/Vol] 3.5 g/dL Normal 3.5-5.0 [facility] [place] Comment on above: Performed By: #### C MADM, CMP, BNP ####[facility] Fboxcxlqyt[address] [place], [place] [address]Dr. Swathi Reis Albumin/Globulin [Mass ratio] 1.0 {ratio} Normal [facility] Comment on above: Performed By: #### C MADM, CMP, BNP ####[facility] G[address]zid[address] [place] [address]Dr. Swathi Reis ALP [Catalytic activity/Vol] 93 U/L Normal 38-126 [facility] Comment on above: Performed By: #### C MADM, CMP, BNP ####[facility] Vypxdnzfxt[address] [place] [address]Dr. Swathi Reis ALT [Catalytic activity/Vol] 22 U/L Normal 9-52 [facility] Comment on above: Performed By: #### C MADM, CMP, BNP ####[facility] Ylsjrlagon[address] [place] [address]Dr. Swathi Reis Anion gap [Moles/Vol] 15.4 mmol/L Normal [facility] Comment on above: Performed By: #### C MADM, CMP, BNP ####[facility] Dnhitaagrs[address] [place], [place] [address]Dr. Swathi Reis AST [Catalytic activity/Vol] 21 U/L Normal 14-36 [facility] Comment on above: Performed By: #### C MADM, CMP, BNP ####[facility] Oeofslnqyr[address] [place], [place] [address]Dr. Swathi Reis Bilirubin [Mass/Vol] 0.7 mg/dL Normal 0.2-1.3 [facility] Comment on above: Performed By: #### C MADM, CMP, BNP ####[facility] Xkceowbppf[address] [place], [place] [address]Dr. Swathi Reis Calcium [Mass/Vol] 9.5 mg/dL Normal 8.4-10.2 [facility] [place] Comment on above: Performed By: #### C MADM, CMP, BNP ####[facility] Vqucraurxe[address] [place], [place] [address]Dr. Swathi Reis Chloride [Moles/Vol] 99 mmol/L Normal 98-107 [facility] Comment on above: Performed By: #### C MADM, CMP, BNP ####[facility] Jeittwpvqg4[address] [place], [place] [address]Dr. Yilan Reis CO2 [Moles/Vol] 31.0 mmol/L Critically high 22.0-30.0 [facility] Comment on above: Performed By: #### C MADM, CMP, BNP ####[facility] Hrkov[address]ohv[address] [place] [address]Dr. Swathi Reis Creatinine [Mass/Vol] 1.10 mg/dL Critically high 0.52-1.04 [facility] Comment on above: Performed By: #### C MADM, CMP, BNP ####[facility] Ewegsaixtw[address] [place] [address]Dr. Swathi Reis EGFR-AF GRENADIAN 58 mL/min/1.73m2 Critically low >=60 [facility] Comment on above: Performed By: #### C MADM, CMP, BNP ####[facility] Guzoboligu[address] [place], [place] [address]Dr. Swathi Reis EGFR-NON AF GRENADIAN 48 mL/min/1.73m2 Critically low >=60 [facility] Comment on above: Performed By: #### C MADM, CMP, BNP ####[facility] Eaijoqytch[address] [place], [place] [address]Dr. Swathi Reis Globulin (S) [Mass/Vol] 3.5 g/dL Normal [facility] Comment on above: Performed By: #### C MADM, CMP, BNP ####[facility] Lfhjihtngu75[address] [place] [address]Dr. Swathi Reis Glucose [Mass/Vol] 203 mg/dL Critically high 74-106 [facility] Comment on above: Performed By: #### C MADM, CMP, BNP ####[facility] Vnxwpxwsmk80[address] [place] [address]Dr. Swathi Reis Potassium [Moles/Vol] 4.4 mmol/L Normal 3.4-5.0 [facility] Comment on above: Performed By: #### C MADM, CMP, BNP ####[facility] Qqojourmly[address] [place], [place] [address]Dr. Swathi Reis Protein [Mass/Vol] 7.0 g/dL Normal 6.1-8.2 [facility] [place] Comment on above: Performed By: #### C MADM, CMP, BNP ####[facility] Adgpgvnsld[address] [place] [address]Dr. Swathi Reis Sodium [Moles/Vol] 141 mmol/L Normal 137-145 [facility] [place] Comment on above: Performed By: #### C MADM, CMP, BNP ####[facility] Qjlwtdnvfp0064 [place] [address]Dr. Swathi Reis Urea nitrogen [Mass/Vol] 21.0 mg/dL Critically high 7.0-17.0 [facility] Comment on above: Performed By: #### C MADM, CMP, BNP ####[facility] Kkysvlrkde[address] [place], [place] [address]Dr. Swathi Reis Urea nitrogen/Creatinine [Mass ratio] 19.1 mg/mg Normal [facility] Comment on above: Performed By: #### C MADM, CMP, BNP ####[facility] Bhqlplktir[address] [place], [place] [address]Dr. Swathi Reis PROTIMEon 11-09-2021 INR Coag (PPP) [Relative time] 1.09 {INR} Normal [facility] Comment on above: Performed By: #### P T, PTT ####[facility] Dklhtfkcsm[address] [place], [place] [address]Dr. Swathi Reis INR GUIDELINES SEE BELOW Normal [facility] Comment on above: Result Comment: HARRIETT RED INR: 2.0 - 3.0 CONDITIONS NOT LISTED BELOW 2.5 - 3.5 FOR PROSTHETIC HEART VALVE REPLACEMENT 2.5 - 3.5 RECURRENT THROMBOSIS Performed By: #### P T, PTT ####[facility] Uqllheypsz[address] [place], [place] [address]Dr. Swathi Reis PT Coag (PPP) [Time] 11.7 s Critically high 9.0-11.6 [facility] Comment on above: Performed By: #### P T, PTT ####[facility] Dprcxhveue[address] [place], [place] [address]Dr. Swathi Reis INR Coag (PPP) [Relative time] 3.45 {INR} Normal [facility] Comment on above: Performed By: #### P TT, PT ####[facility] Mbhmleectr[address] [place] [address]Dr. Swathi Reis INR GUIDELINES SEE BELOW Normal [facility] Comment on above: Result Comment: HARRIETT RED INR: 2.0 - 3.0 CONDITIONS NOT LISTED BELOW 2.5 - 3.5 FOR PROSTHETIC HEART VALVE REPLACEMENT 2.5 - 3.5 RECURRENT THROMBOSIS Performed By: #### P TT, PT ####[facility] Gdjbhzmszf4[address] [place], [place] [address]Dr. Swathi Reis PT Coag (PPP) [Time] 34.4 s Critically high 9.0-11.6 [facility] Comment on above: Performed By: #### P TT, PT ####[facility] Gtwqachyru[address] [place], [place] [address]Dr. Swathi Reis PTTon 11-09-2021 aPTT Coag (Bld) [Time] 25.9 s Normal 22.3-36.2 [facility] Comment on above: Performed By: #### P T, PTT ####[facility] Sitqkfbgjr[address] [place], [place] [address]Dr. Swathi Reis aPTT Coag (Bld) [Time] 39.1 s Critically high 22.3-36. 2 [facility] Comment on above: Performed By: #### P TT, PT ####[facility] [address]ewtzxkq[address] [place], [place] [address]Dr. Swathi Reis TYPE AND SCREENon 11-09-2021 TYPE AND SCREEN Negative Normal [facility] Comment on above: Performed By: #### T NS ####[facility] Odkynbtbls[address] [place], [place] [address]Dr. Swathi Reis URINE MICROSCOPIC ONLYon BACTERIA NONE SEEN Normal NONE SEEN [facility] Comment on above: Performed By: #### REYNOLD SOSA ####[facility] Xrkzqpazzv[address] [place], [place] [address]Dr. Swathi Reis Bacteria identified Cx Nom (U) NOT INDICATED Normal [facility] Comment on above: Performed By: #### E ROMEO WATERSRO ####[facility] [address] [place] [address]Dr. Swathi Reis CAST NONE SEEN Normal NONE SEEN [facility] Comment on above: Performed By: #### ROMEO SOSARO ####[facility] Icwgmgjkvy[address] [place] [address]Dr. Swathi Reis Crystals LM Nom (Urine sed) NONE SEEN Normal NONE SEEN [facility] Comment on above: Performed By: #### ROMEO SOSARO ####[facility] [address] [place] [address]Dr. Swathi Reis Epithelial cells LM Ql (Urine sed) FEW Abnormal NONE SEEN /RARE [facility] Comment on above: Performed By: #### ROMEO SOSARO ####[facility] Spkqpfgkpz[address] [place] [address]Dr. Swathi Reis MUCOUS NONE SEEN Normal NONE SEEN [facility] Comment on above: Performed By: #### REYNOLD SOSA ####[facility] Rdqrjrlwkl[address] [place] [address]Dr. Swathi Reis RBC 2-5 Abnormal 0-2 [facility] Comment on above: Performed By: #### REYNOLD SOSA ####[facility] [address]qmmrbzx[address] [place] [address]Dr. Swathi Reis WBC NONE SEEN Normal NONE SEEN [facility] Comment on above: Performed By: #### REYNOLD SOSA ####[facility] [address]sua[address] [place] [address]Dr. Swathi Reis XR CHEST 1 Von 11-09-2021 XR CHEST 1 V Normal [facility] Coding Summary.on 09-14-2020 Coding Summary. CODING DATE: 020 FINAL [facility] STATUS: Short-Term Hosp as IP PAYOR: [...] Revised Date Saved: 09/14/2020 08:26 am Normal [facility] EMS Documentationon 09-12-20 EMS Documentation [id number] Normal [facility] ED Clinical Summaryon 2019 ED Clinical Summary (Inserted Image. Ave ble to display) [place] [id number] ED Clinical Summary Person Information Name: ANDREW BARROS/[facility] Age: 74 Years : 1945 Sex: Female Language: Slovak PCP: Eduardo Sharpe MD Marital Status: Phone: [phone] Visit Id: Visit Reason: Shortness of breath; [...] 09/09/2020 23:10:35 09/09/2020 23:10:35 09/09/2020 23:10:35 ADDRESS: [address] [place] [id number] PHYS DOC NOTES: Addendum by Koko Pettit DO on September 09, 2020 18:55:26 EST MEDICAL INFORMATION: Prescriptions Given: Medications to Continue with No Changes Other Medications insulin aspart (NovoLog) 8 Units Subcutaneous every day. nitroglycerin nitroglycerin (nitroglycerin 0.4 mg sublingual Tab) 1 Tablets Sublingual every 5 minutes as needed for chest pain. PATIENT EDUCATION INFORMATION: Instructions: Follow up: DIAGNOSIS: COVID-19; Hypoxemia; Pneumonia Normal [facility] ED Patient Education Noteon 09-10-2020 ED Patient Education Note Normal [facility] ED Patient Summaryon 020 ED Patient Summary (Inserted Image. Ave ble to display) [place] [id number] Patient Discharge Instructions Person Information Name: ANDREW BARROS Age: 74 Years Arrival Date: 09/09/2020 12:32:39 Discharge Diagnosis: COVID-19; Hypoxemia; Pneumonia Primary Care Physician: Eduardo Sharpe MD Provider Information Primary Provider: Koko Pettit DO Advanced Outside Machinist Apprentice:None The exam and treatment you received in the Emergency Department were for an urgent problem and are not intended as complete care. It is important that you follow up with a doctor, nurse practitioner, or physician?s nursing home assistant administrator for ongoing care. If your symptoms become [...] opioids can be used to help relieve xwuluxfo-ey-kiacuf pain and are often prescribed following a [...] be struggling with addiction, tell your health progressive care nurse and ask for guidance or call [facility]?S National Helpline at 7-314-676-EKKB. h Source: [place] Department of Health and Human Services/Center for Disease Control & Prevention [facility] Medications Given: Medication Dose Route levo (more content not included)... Normal [facility] Progress Note-Nurseon 2019 Progress Note-[facility]urse [facility] ems at bedside receiving report and preparing patient for transport to [facility]. pt taken off high flow NC and placed on non rebreather at 15L/min o2 for traansport. Normal [facility] Troponin 9 Hr.on 09-10-2020 Troponin I.cardiac [Mass/Vol] 57.60 pg/mL Abnormal 10.10-27.10 [facility] Comment on above: Result Comment: Crit [...] Umair, April 2018) Performed By: #### 1 [id number] ####[facility] [address] [place] [address] .Manual Abson 09-09-2020 Basophils/Leukocytes Manual cnt (Bld) [Pure # fraction] 0.0 E9/L Normal 0.0-0.2 [facility] Comment on above: Performed By: #### 1 [id number], [id number], 3775851, 6255389, 30642497, 84976664, 9849902, 96951800, [id number] #### [facility] Laboratory [address] [place] [address] Eosinophils/Leukocytes Manual cnt (Bld) [Pure # fraction] 0.0 E9/L Normal 0.0-0.5 [facility] Comment on above: Performed By: #### 1 [id number], 1587128, 0350653, 4720149, 05504990, 94746597, 2412610, 86143483, 82960086 #### [facility] [address] [place] [address] Lymphocytes/Leukocytes Manual cnt (Bld) [Pure # fraction] 0.4 E9/L Low 1.0-4.0 [facility] Comment on above: Performed By: #### 1 [id number], 1154255, 3190613, 0623864, 57115060, 36414269, 5395055, 71588905, 03643264 #### [facility] [address] [place] [address] Monocytes/Leukocytes Manual cnt (Bld) [Pure # fraction] 1.5 E9/L High 0.2-1.0 [facility] Comment on above: Performed By: #### 1 [id number], 7837470, 6880523, 9799146, 51039032, 14980635, 4655051, 47551105, 43072124 #### [facility] [address] [place] [address] Neutrophils/Leukocytes Auto (Bld) [Pure # fraction] 18.9 E9/L High 2.0-7.5 [facility] Comment on above: Performed By: #### 1 [id number], 5498384, 6399861, 0411286, 07630360, 57589666, 7496729, 27388731, 84047548 #### [facility] [address] [place] [address] [facility] 09-09-2020 Creatinine [Mass/Vol] 1.1 mg/dL Normal 0.5-1.3 [facility] Comment on above: Performed By: #### 1 [id number], 5125611, 6623624, 7984699, 67565438, 65216375, 4153949, 04785125, 24592638 #### [facility] [address] [place] [address] Urea nitrogen [Mass/Vol] 26 mg/dL High 5-21 [facility] Comment on above: Performed By: #### 1 6723979, 1609097, 2737731, 9345990, 92730817, 55705004, 1156574, 07476487, 77293326 #### [facility] [address] [place] [address] Urea nitrogen/Creatinine [Mass ratio] 24 No Units High 10-20 [facility] Comment on above: Performed By: #### 1 3813306, 5058371, 8916801, 6114117, 78562435, 93957782, 9717710, 00746010, 79686075 #### [facility] [address] [place] [address] Anion gap [Moles/Vol] 14 mmol/L Normal 6-16 [facility] Comment on above: Performed By: #### 1 2491059, 0272359, 1006408, 8170036, 62872823, 06788652, 8054113, 53138112, 18958222 #### [facility] [address] [place] [address] Calcium [Mass/Vol] 8.7 mg/dL Low 8.9-11.1 [facility] Comment on above: Performed By: #### 1 3799193, 8057918, 7588457, 4653720, 14914221, 35289173, 7497555, 27389440, 11067211 #### [facility] [address] [place] [address] Chloride [Moles/Vol] 104 mmol/L Normal 101-111 [facility] Comment on above: Performed By: #### 1 7567290, 7238648, 0735538, 4281960, 80467929, 28803412, 5061530, 87774900, 92584704 #### [facility] [address] [place] [address] CO2 [Moles/Vol] 23 mmol/L Normal 21-31 [facility] Comment on above: Performed By: #### 1 7400232, 9778357, 0394796, 7597186, 70991891, 95722746, 9625674, 27404370, 67826833 #### [facility] [address] [place] [address] Glucose [Mass/Vol] 256 mg/dL High 55-199 [facility] Comment on above: Result Comment: If t his glucose result represents a fasting glucose, interpretation should refer to the following reference range: 55-99 mg/dL Performed By: #### 1 9403881, 1664197, 7891874, 2396012, 23043170, 10846174, 5401530, 43567512, 71352196 #### [facility] [address] [place] [address] Potassium [Moles/Vol] 4.9 mmol/L Normal 3.5-5.3 [facility] Comment on above: Performed By: #### 1 2895629, 8817375, 9250430, 5285116, 39850127, 56817252, 4852647, 25717977, 70093038 #### [facility] [address] [place] [address] Sodium [Moles/Vol] 136 mmol/L Normal 135-145 [facility] Comment on above: Performed By: #### 1 2538199, 4456661, 1461055, 8111067, 82687558, 99888432, 3892558, 89719570, 59842141 #### [facility] [address] [place] [address] BNPon 09-09-2020 Int Ctr BNP Pass Normal [facility] Comment on above: Performed By: #### 1 3537764, 9267382, 2237086, 4695500, 14498694, 30349949, 0740068, 38699100, 49472160 ####[facility] [address] [place] [address] Natriuretic peptide B (Bld) [Mass/Vol] 477 pg/mL High 5-80 [facility] Comment on above: Performed By: #### 1 6900919, 0221935, 3240979, 4689605, 51929025, 48252441, 0287254, 19852640, 92709119 ####[facility] [address] [place] [address] Bld Gas Arton 09-09-2020 a/A Ratio Art 37.50 Normal >=0.80 [facility] Comment on above: Performed By: #### 1 3163146 ####[address] [place] [address] AaDO2 Art 144.6 High 5.0-15.0 [facility] Comment on above: Performed By: #### 1 1195102 ####[place] [address] Allens Test Positive Invalid Interpretation Code [facility] Comment on above: Result Comment: [facility] Department of Pulmonary Medicine [address] [place] [address] Performed By: #### 1 0885665 ####[place] [address] Base excess Calc (Bld) [Moles/Vol] -1.8000 mmol/L Low >=2.8 [facility] Comment on above: Performed By: #### 1 4354384 ####[place] [address] Called By: MISHA Invalid Interpretation Code [facility] Comment on above: Performed By: #### 1 4903727 ####[address] [address] Called To: COLTON Invalid Interpretation Code [facility] Comment on above: Performed By: #### 1 7234918 ####[address] [address] cCa2+ Art 4.93 mg/dL Normal 4.40-5.30 [facility] Comment on above: Performed By: #### 1 3850305 ####[address] [address] cCl- Art 106.0 mmol/L Normal 101.0-111.0 [facility] Comment on above: Performed By: #### 1 7121700 ####[facility] [address] [place] [address] cGlu Art 262.0 mg/dL High 55.0-199.0 [facility] Comment on above: Result Comment: 83 Performed By: #### 1 3488276 ####[facility] [address] [place] [address] cK+ Art 4.9 mmol/L Normal 3.5-5.3 [facility] Comment on above: Performed By: #### 1 1292063 ####[facility] [address] [place] [address] cLac Art 1 mmol/L Low 5-14 [facility] Comment on above: Performed By: #### 1 4710740 ####[address] [place] [address] bobbin fixer+ Art 140.0 mmol/L Normal 135.0-145.0 [facility] Comment on above: Performed By: #### 1 1843527 ####[facility] [address] [place] [address] CO2 (Bld) [Partial pressure] 45.5 mm[Hg] High 35.0-45.0 [facility] Comment on above: Result Comment: 83 Performed By: #### 1 2770841 ####[facility] [address] [place] [address] Device NASAL Invalid Interpretation Code [facility] Comment on above: Performed By: #### 1 7920898 ####[facility] [address] [place] [address] Drawn by TSB Invalid Interpretation Code [facility] Comment on above: Performed By: #### 1 5184397 ####[facility] [address] [place] [address] Dt/Tm Notified 12:54:00 Invalid Interpretation Code [facility] Comment on above: Performed By: #### 1 0107452 ####[facility] [address] [place] [address] FCOHb Art 1.1 % Low 1.5-4.9 [facility] Comment on above: Result Comment: 84 Reference range Nonsmoker <1.5% Smoker <5.0% Heavy Smoker <9.0% Performed By: #### 1 4153990 ####[facility] [address] [place] [address] FIO2 BG 40.0 Invalid Interpretation Code [facility] Comment on above: Performed By: #### 1 3187924 ####[facility] [address] [place] [address] Flow 5.00 Invalid Interpretation Code [facility] Comment on above: Performed By: #### 1 3304159 ####[address] [address] FMetHb Art 0.6 % Normal 0.0-1.9 [facility] Comment on above: Performed By: #### 1 6568690 ####[address] [address] FO2Hb Art 94.9 % Normal 92.0-100.0 [facility] Comment on above: Performed By: #### 1 0416671 ####[address] [address] HCO3 (Bld) [Moles/Vol] 22.9 mmol/L Normal 22.0-26.0 [facility] Comment on above: Performed By: #### 1 6178773 ####[address] [place] [address] Hemoglobin (Bld) [Mass/Vol] 9.9 g/dL Low 12.0-16.0 [facility] Comment on above: Result Comment: 84 Performed By: #### 1 5933409 ####[address] [place] [address] Oxygen saturation in Blood 96.6 % Normal 95.0-100.0 [facility] Comment on above: Performed By: #### 1 3289473 ####[address] [place] [address] P O2 Arterial 86.6 mmHg Normal 80.0-100.0 [facility] Comment on above: Performed By: #### 1 0474845 ####[facility] [address] [place] [address] pH (Bld) 7.333 [pH] Low 7.350-7.450 [facility] Comment on above: Result Comment: 84 Performed By: #### 1 9719588 ####[facility] [address] [place] [address] Sample Site RR Invalid Interpretation Code [facility] Comment on above: Performed By: #### 1 9270492 ####[facility] [address] [place] [address] Sample Type Arterial Invalid Interpretation Code [facility] Comment on above: Performed By: #### 1 5026975 ####[facility] [address] [place] [address] CBC w/ Auto Diffon 0 Erythrocyte distribution width (RBC) [Ratio] 15.1 % High 10.9-14.2 [facility] Comment on above: Performed By: #### 1 5514694, 0657520, 7512666, 3009186, 00266669, 64399507, 8593763, 20238316, 39454839 #### [facility] [address] Hematocrit (Bld) [Volume fraction] 30.7 % Low 34.0-46.0 [facility] Comment on above: Performed By: #### 1 9728160, 6568316, 6745869, 6016990, 14060862, 41196449, 0201769, 13668816, 03360060 #### [facility] [address] [place] [address] Hemoglobin (Bld) [Mass/Vol] 9.9 g/dL Low 12.0-16.0 [facility] Comment on above: Performed By: #### 1 4733093, 4848186, 5596093, 2896560, 58837427, 95918252, 1703041, 90392596, 46120953 #### [facility] [address] [place] [address] MCH (RBC) [Entitic mass] 29.7 pg Normal 27.0-34.0 [facility] Comment on above: Performed By: #### 1 9966799, 3618475, 9356872, 7122951, 97888382, 93189658, 8190094, 09809511, 98419279 #### [facility] [address] [place] [address] MCHC (RBC) [Mass/Vol] 32.2 g/dL Normal 31.4-36.0 [facility] Comment on above: Performed By: #### 1 8096352, 1211917, 8821379, 8693476, 73824981, 79923318, 8359444, 02599273, 13107605 #### [facility] [address] [place] [address] MCV (RBC) [Entitic vol] 92.3 fL Normal 80.0-100.0 [facility] Comment on above: Performed By: #### 1 8769755, 3596569, 4247561, 4321672, 70361240, 23387374, 6380244, 75527374, 75370627 #### [facility] [address] [place] [address] Platelet mean volume (Bld) [Entitic vol] 8.4 fL Normal 6.4-10.8 [facility] Comment on above: Performed By: #### 1 7984198, 1727595, 0705451, 6662414, 33886113, 68301109, 2023554, 94472411, 44032200 #### [facility] [address] [place] [address] Platelets (Bld) [#/Vol] 243.0 E9/L Normal 150.0-500.0 [facility] Comment on above: Performed By: #### 1 6539020, 0514886, 5561341, 2318919, 59847364, 08883863, 3094444, 61664827, 59622373 #### [facility] [address] [place] [address] RBC (Bld) [#/Vol] 3.3 E12/L Low 4.3-5.9 [facility] Comment on above: Performed By: #### 1 7433278, 9598766, 7288998, 1875096, 22318809, 90119986, 1152350, 53124976, 07451692 #### [facility] [address] [place] [address] WBC corrected for nucl RBC Auto (Bld) [#/Vol] 21.7 E9/L High 4.0-11.0 [facility] Comment on above: Performed By: #### 1 0291687, 3236457, 3239502, 1629718, 69887589, 59000655, 8696808, 17281459, 83086585 #### [facility] [address] [place] [address] CTA Cheston 09-09-2020 CTA Chest Exam Date/Time: [...] achievable. FINAL REPORT Dictated: 09/09/2020 6:42 pm Doin Caban M.D. Signed (Electronic Signature): 09/09/2020 6:42 pm Signed by: Doni Caban M.D. Transcribed by: MATTHEW Technologist: JAI Technical Comments GFR (mL/min/1/73m2) 48- iv hydration before & after CTA Contrast: Isovue 370 Contrast amount in ml's: 66 Normal [facility] Consent for Treatmenton 08-23 Consent for Treatment [id number] Normal [facility] D-Dimeron 09-09-2020 Fibrin D-dimer FEU (PPP) [Mass/Vol] 1480 ng/mL Abnormal 215-500 [facility] Comment on above: Result Comment: Resu [...] infections Liver cirrhosis Performed By: #### 1 4664865, 8719933, 9484496, 5773201, 39125672, 71693843, 7914176, 99999987, 03888247 ####[facility] [address] [place] [address] ED Note-Physicianon 09-09-20 ED Note-Physician Basic Information Time Seen: Koko Pettit DO 09/09/2020 12:35 Chief Complaint Sent from [facility] for increased SOB and low oxygen level. [...] (09/09/20 13 (more content not included)... Normal [facility] Comment on above: Result Comment: Elec tronically Signed By: Koko Pettit DO\.br\Date and Time Signed: 09/09/20 18:56 EST Lactic Acidon 09-09-2020 Lactate [Mass/Vol] 1.0 mmol/L Normal 0.5-2.2 [facility] Comment on above: Performed By: #### 2 256072 ####[facility] [address] [place] [address] Manual Diffon 09-09-2020 Band form neutrophils/100 WBC (Bld) 6 % Normal 0-10 [facility] Comment on above: Order Comment: Order Added by Discern Expert. Performed By: #### 1 1111955, 4494396, 7015108, 4262744, 83741558, 85148701, 3008843, 68650049, 32264598 #### [facility] [address] [place] [address] Basophils/100 WBC (Bld) 0 % Normal 0-2 [facility] Comment on above: Order Comment: Order Added by Discern Expert. Performed By: #### 1 9488954, 0249419, 0559092, 3000080, 18174824, 93430896, 0180919, 37045504, 98808821 #### [facility] [address] [place] [address] Eosinophils/100 WBC (Bld) 0 % Normal 0-8 [facility] Comment on above: Order Comment: Order Added by Discern Expert. Performed By: #### 1 5549250, 7870582, 8554962, 3802328, 74311556, 90665128, 0500030, 91455814, 19291569 #### [facility] [address] [place] [address] Lymphocytes/100 WBC (Bld) 2 % Low 14-50 [facility] Comment on above: Order Comment: Order Added by Discern Expert. Performed By: #### 1 8166022, 3390547, 5622437, 6348199, 61360495, 84567198, 2446357, 87945471, 41501438 #### [facility] [address] [place] [address] Metamyelocytes/Leukocy sade Manual cnt (Bld) [Pure # fraction] 2 % High <=0 [facility] Comment on above: Order Comment: Order Added by Discern Expert. Performed By: #### 1 9140658, 3041404, 5887472, 1924941, 21259683, 32263380, 3544624, 42945367, 80145588 #### [facility] [address] [place] [address] Monocytes/100 WBC (Bld) 7 % Normal 4-14 [facility] Comment on above: Order Comment: Order Added by Discern Expert. Performed By: #### 1 0473027, 3338156, 9968511, 9394745, 42332299, 40463637, 4838466, 70477372, 66250695 #### [facility] [address] [place] [address] Morphology Elie (Bld) [Interp] Normal Normal [facility] Comment on above: Order Comment: Order Added by Discern Expert. Performed By: #### 1 3666351, 8540037, 1147516, 6324577, 76626352, 89086050, 5361584, 09725885, 04052672 #### [facility] [address] [place] [address] Myelocytes/100 WBC (Bld) 2 % High <=0 [facility] Comment on above: Order Comment: Order Added by Debbie Expert. Performed By: #### 1 9757791, 6055438, 2190451, 8310596, 51062756, 62023138, 3957105, 43683008, 98680029 #### [facility] [address] [place] [address] Nucleated cells (Bld) [#/Vol] 1 High <=0 [facility] Comment on above: Order Comment: Order Added by Discern Expert. Performed By: #### 1 2191794, 9972377, 2993930, 2374652, 14576965, 80774008, 3122750, 62751876, 59785768 #### [facility] [address] [place] [address] Segmented neutrophils/100 WBC (Bld) 81 % High 36-75 [facility] Comment on above: Order Comment: Order Added by Discern Expert. Performed By: #### 1 9828608, 7666436, 7960163, 2000735, 44650467, 29713629, 5436275, 58647810, 94712517 #### [facility] [address] [place] [address] Variant lymphocytes LM Ql (Bld) 0 % Invalid Interpretation Code [facility] Comment on above: Order Comment: Order Added by Discern Expert. Performed By: #### 1 4705582, 0991250, 9421760, 3747557, 05261697, 82716310, 0589632, 33351407, 32584733 #### [facility] [address] [place] [address] PTon 09-09-2020 INR Coag (PPP) [Relative time] 1.9 {INR} Invalid Interpretation Code [facility] Comment on above: Result Comment: INR results are specifically intended to assess patients stabilized on long-term Anticoagulation therapy suggested INR?s ?Less Intensive Anticoagulation? 2.0 ? 3.0 Conventional Range 3.0 ? 4.5 Performed By: #### 2 802392, 1396502 ####[facility] [address] [place] [address] PT Coag (PPP) [Time] 22.8 second(s) High 10.2-12.9 [facility] Comment on above: Performed By: #### 2 378634, 9421061 ####[facility] [address] [place] [address] PT & PTTon 09-09-2020 aPTT Coag (PPP) [Time] 31.7 second(s) Normal 25.1-36.5 [facility] Comment on above: Result Comment: Hepa rin therapeutic range (represented by Anti-Factor Xa activity of 0.2 - 0.4 U/mL) corresponds to PTT of 56.6 - 109.0 sec. Performed By: #### 1 9834485, 0441018, 6753903, 3345841, 54876591, 14629751, 4199567, 10061420, 88873347 ####[facility] [address] [place] [address] INR Coag (PPP) [Relative time] 2.0 {INR} Invalid Interpretation Code [facility] Comment on above: Result Comment: INR results are specifically intended to assess patients stabilized on long-term Anticoagulation therapy suggested INR?s ?Less Intensive Anticoagulation? 2.0 ? 3.0 Conventional Range 3.0 ? 4.5 Performed By: #### 1 8519101, 8715034, 1625928, 8144109, 62022403, 34066223, 0516280, 40090430, 02489310 ####[facility] [address] [place] [address] PT Coag (PPP) [Time] 23.6 second(s) High 10.2-12.9 [facility] Comment on above: Performed By: #### 1 6799452, 5552756, 3520088, 3786114, 32952002, 66262226, 7882726, 37687419, 80575593 ####[facility] [address] [place] [address] PTTon 09-09-2020 aPTT Coag (PPP) [Time] 30.4 second(s) Normal 25.1-36.5 [facility] Comment on above: Result Comment: Hepa rin therapeutic range (represented by Anti-Factor Xa activity of 0.2 - 0.4 U/mL) corresponds to PTT of 56.6 - 109.0 sec. Performed By: #### 2 342676, 3287960 ####[facility] [address] [place] [address] Progress Note-Nurseon 2019 Progress Note-Nurse Pt care report sydney erwin to JARRET Hirsch. Pts family member, Rosenda updated on pt status. Presently awaiting transport to [facility] via [facility], [place] [facility] 2200hrs Normal [facility] Progress Note-Nurse Pt care report dayanna frederick to [facility] [employer] Zach, advised of family contact information and will send SNF paperwork with patient. Normal [facility] Progress Note-Nurse Pts daughter, Rosenda updated on pt transfer and condition. Rosenda: [phone] Pts family sts pt is under extreme stress, pts spouse yesterday due to COVID infection. Normal [facility] Progress Note-Nurse Pts son updated on p t condition, presently awating updated order set. Pt returns from CT, RT at bedside for high flow o2 placement. Normal [facility] Progress Note-Nurse IV ABx completed at this time, pt to CT Normal [facility] Progress Note-Nurse Pt c/o increased dys pnea, spo2 reading 89% oxygen increased to 6lpm, nasal cannula. made aware, requests RT for high flow oxygen therapy Normal [facility] Progress Note-Nurse Advised per CT that IV no longer infuses/flushes, await IV access at this time via US. Normal [facility] Progress Note-Nurse Pt to imaging at thi s time. Normal [facility] Troponin 0 Hr.on 09-09-2020 Troponin I.cardiac [Mass/Vol] 10.10 pg/mL Normal 10.-27.10 [facility] Comment on above: Result Comment: The 95% CI (Confidence Interval) PPV (Positive Predictive Value) for myocardial infarction in females is 38 pg/mL, in males 51 pg/mL. The results should be used in conjunction with clinical conditions of myocardial infarction. (Access High Sensitivity Troponin I Instructions For Use, [employer], April 2018) Performed By: #### 1 8223878, 3892829, 4906844, 6887392, 96486881, 76367090, 4981605, 96308626, 79037493 ####[facility] [address] [place] [address] Troponin 3 Hr.on 09-09-2020 Troponin I.cardiac [Mass/Vol] 20.20 pg/mL Normal .-.10 [facility] Comment on above: Result Comment: The 95% CI (Confidence Interval) PPV (Positive Predictive Value) for myocardial infarction in females is 38 pg/mL, in males 51 pg/mL. The results should be used in conjunction with clinical conditions of myocardial infarction. (Access High Sensitivity Troponin I Instructions For Use, [employer], April 2018) Performed By: #### 1 6483527 ####[facility] [address] [place] [address] Troponin 6 Hr.on 09-09-2020 Troponin I.cardiac [Mass/Vol] 37.60 pg/mL High 10.-27.10 [facility] Comment on above: Result Comment: The 95% CI (Confidence Interval) PPV (Positive Predictive Value) for myocardial infarction in females is 38 pg/mL, in males 51 pg/mL. The results should be used in conjunction with clinical conditions of myocardial infarction. (Access High Sensitivity Troponin I Instructions For Use, [employer], April 2018) Performed By: #### 1 [id number] #### [facility] [facility] [address] [place] [address] XR Chest Single Viewon 09-09 XR Chest [...] Mahogany Mcclendon DO Transcribed by: MATTHEW Technologist: JAI Normal [facility] eGFRon 09-09-2020 GFR/1.73 sq M.predicted among blacks MDRD (S/P/Bld) [Vol rate/Area] 59 mL/min/1.73 m2 Normal >=59 [facility] Comment on above: Order Comment: Order added by Discern Expert. Result Comment: eGFR is race adjusted. AA=. Performed By: #### 1 [id number] #### [facility] [address] [place] [address] GFR/1.73 sq M.predicted among non-blacks MDRD (S/P/Bld) [Vol rate/Area] 48 mL/min/1.73 m2 Low >=59 [facility] Comment on above: Order Comment: Order added by Discern Expert. Result Comment: Buckle Strap Drum Operator les kidney disease could be indicated at eGFR's of less than 60 mL/min/1.73m2. Kidney failure is indicated at less than 15 mL/min/1.73m2. Performed By: #### 1 [id number] #### [facility] [address] [place] [id number] Vital Signs Date Time Vital Sign Value Performing Clinician Facility 03-25-2025 10:130400 Body height 162.56 cm Eduardo Sharpe MD Work Phone: [facility] 03-25-2025 10:13-0400 Body mass index (BMI) [Ratio] 26.4 kg/m2 Eduardo Sharpe MD Work Phone: [facility] 03-25-2025 10:13040 Body temperature 96.7 [degF] Eduardo Sharpe MD Work Phone: [facility] 03-25-2025 10:13040 Body weight 69.9 kg Eduardo Sharpe MD Work Phone: [facility] 03-25-2025 10:13-0400 Diastolic blood pressure 65 mm[Hg] Eduardo Sharpe MD Work Phone: [facility] 03-25-2025 10:13-0400 Heart rate 61 /min Eduardo Sharpe MD Work Phone: [facility] 03-25-2025 10:13-0400 Respiratory rate 18 /min Eduardo Sharpe MD Work Phone: [facility] 03-25-2025 10:13-0400 SaO2% (BldA) [Mass fraction] 96 % Eduardo Sharpe MD Work Phone: [facility] 03-25-2025 10:13-0400 Systolic blood pressure 128 mm[Hg] Eduardo Sharpe MD Work Phone: [facility] 12-31-2024 15:43-0400 Body height 162.56 cm [facility] 12-31-2024 15:43-0400 Body mass index (BMI) [Ratio] 26.2 kg/m2 [facility] 12-31-2024 15:43-0400 Body temperature 97.7 [degF] [facility] 12-31-2024 15:43-0400 Body weight 69.17 kg [facility] 12-31-2024 15:43-0400 Diastolic blood pressure 63 mm[Hg] [facility] 12-31-2024 15:43-0400 Heart rate 62 /min [facility] 12-31-2024 15:43-0400 Respiratory rate 16 /min [facility] 12-31-2024 15:43-0400 SaO2% (BldA) [Mass fraction] 98 % [facility] 12-31-2024 15:43-0400 Systolic blood pressure 126 mm[Hg] [facility] 11-27-2024 11:29-0500 Body mass index (BMI) [Ratio] 26.65 kg/m2 Sandeep Lenz MD Work Phone: [facility] 11-27-2024 11:29-0500 Body temperature 97.81 [degF] Sandeep Lenz MD Work Phone: [facility] 11-27-2024 11:29-0500 Body weight 68.4 kg Sandeep Lenz MD Work Phone: [facility] 11-27-2024 11:29-0500 Diastolic blood pressure 76 mm[Hg] Sandeep Lenz MD Work Phone: [facility] 11-27-2024 11:29-0500 Heart rate 64 /min Sandeep Lenz MD Work Phone: [facility] 11-27-2024 11:29-0500 Respiratory rate 16 /min Sandeep Lenz MD Work Phone: [facility] 11-27-2024 11:29-0500 SaO2% (BldA) [Mass fraction] 97 % Sandeep Lenz MD Work Phone: [facility] 11-27-2024 11:29-0500 Systolic blood pressure 139 mm[Hg] Sandeep Lenz MD Work Phone: [facility] 10-19-2024 10:55-0500 Body height 160.2 cm Sandeep Lenz MD Work Phone: [facility] 10-19-2024 10:55-0500 Body mass index (BMI) [Ratio] 26.73 kg/m2 Sandeep Lenz MD Work Phone: [facility] 10-19-2024 10:55-0500 Body temperature 97.39 [degF] Sandeep Lenz MD Work Phone: [facility] 10-19-2024 10:55-0500 Body weight 68.6 kg Sandeep Lenz MD Work Phone: [facility] 10-19-2024 10:55-0500 Diastolic blood pressure 75 mm[Hg] Sandeep Lenz MD Work Phone: [facility] 10-19-2024 10:55-0500 Heart rate 71 /min Sandeep Lenz MD Work Phone: [facility] 10-19-2024 10:55-0500 Respiratory rate 16 /min Sandeep Lenz MD Work Phone: [facility] 10-19-2024 10:55-0500 SaO2% (BldA) [Mass fraction] 98 % Sandeep Lenz MD Work Phone: [facility] 10-19-2024 10:55-0500 Systolic blood pressure 152 mm[Hg] Sandeep Lenz MD Work Phone: [facility] 07-22-2024 09:25-0400 Body height 160.2 cm Sandeep Lenz MD Work Phone: [facility] 07-22-2024 09:25-0400 Body mass index (BMI) [Ratio] 24.98 kg/m2 Sandeep Lenz MD Work Phone: [facility] 07-22-2024 09:25-0400 Body temperature 96.91 [degF] Sandeep Lenz MD Work Phone: [facility] 07-22-2024 09:25-0400 Body weight 64.1 kg Sandeep Lenz MD Work Phone: [facility] 07-22-2024 09:25-0400 Diastolic blood pressure 73 mm[Hg] Sandeep Lenz MD Work Phone: [facility] 07-22-2024 09:25-0400 Heart rate 68 /min Sandeep Lenz MD Work Phone: [facility] 07-22-2024 09:25-0400 Respiratory rate 16 /min Sandeep Lenz MD Work Phone: [facility] 07-22-2024 09:25-0400 SaO2% (BldA) [Mass fraction] 96 % Sandeep Lenz MD Work Phone: [facility] 07-22-2024 09:25-0400 Systolic blood pressure 136 mm[Hg] Sandeep Lenz MD Work Phone: [facility] 07-16-2024 09:38-0400 Body height 162.56 cm MD Eduardo Sharpe Work Phone: [facility] 07-16-2024 09:38-0400 Body mass index (BMI) [Ratio] 24.1 kg/m2 MD Eduardo Sharpe Work Phone: [facility] 07-16-2024 09:38-0400 Body temperature 97.3 [degF] MD Eduardo Sharpe Work Phone: [facility] 07-16-2024 09:38-0400 Body weight 63.72 kg MD Eduardo Sharpe Work Phone: [facility] 07-16-2024 09:38-0400 Diastolic blood pressure 74 mm[Hg] MD Eduardo Sharpe Work Phone: [facility] 07-16-2024 09:38-0400 Heart rate 63 /min MD Eduardo Sharpe Work Phone: [facility] 07-16-2024 09:38-0400 Respiratory rate 16 /min MD Eduardo Sharpe Work Phone: [facility] 07-16-2024 09:38-0400 SaO2% (BldA) [Mass fraction] 98 % MD Eduardo Sharpe Work Phone: [facility] 07-16-2024 09:38-0400 Systolic blood pressure 143 mm[Hg] MD Eduardo Sharpe Work Phone: [facility] 05-26-2024 11:08-0400 Diastolic blood pressure 67 mm[Hg] MD Eduardo Sharpe Work Phone: [facility] 05-26-2024 11:08-0400 Heart rate 60 /min MD Eduardo Sharpe Work Phone: [facility] 05-26-2024 11:08-0400 Respiratory rate 16 /min MD Eduardo Sharpe Work Phone: [facility] 05-26-2024 11:08-0400 SaO2% (BldA) [Mass fraction] 97 % MD Eduardo Sharpe Work Phone: [facility] 05-26-2024 11:08-0400 Systolic blood pressure 126 mm[Hg] MD Eduardo Sharpe Work Phone: [facility] 05-26-2024 08:44-0400 Body height 162.56 cm MD Eduardo Sharpe Work Phone: [facility] 05-26-2024 08:44-0400 Body weight 60.78 kg MD Eduardo Sharpe Work Phone: [facility] 02-24-2024 11:25-0400 Body height 160.2 cm Sandeep Lenz MD Work Phone: [facility] 02-24-2024 11:25-0400 Body mass index (BMI) [Ratio] 23.81 kg/m2 Sandeep Lenz MD Work Phone: [facility] 02-24-2024 11:25-0400 Body temperature 97.3 [degF] Sandeep Lenz MD Work Phone: [facility] 02-24-2024 11:25-0400 Body weight 61.1 kg Sandeep Lenz MD Work Phone: [facility] 02-24-2024 11:25-0400 Diastolic blood pressure 77 mm[Hg] Sandeep Lenz MD Work Phone: [facility] 02-24-2024 11:25-0400 Heart rate 63 /min Sandeep Lenz MD Work Phone: [facility] 02-24-2024 11:25-0400 Respiratory rate 16 /min Sandeep Lenz MD Work Phone: [facility] 02-24-2024 11:25-0400 SaO2% (BldA) [Mass fraction] 95 % Sandeep Lenz MD Work Phone: [facility] 02-24-2024 11:25-0400 Systolic blood pressure 155 mm[Hg] Sandeep Lenz MD Work Phone: [facility] 02-10-2024 13:22-0400 Body height 162.56 cm [facility] 02-10-2024 13:22-0400 Body mass index (BMI) [Ratio] 23.7 kg/m2 [facility] 02-10-2024 [id number] Body temperature 99 [degF] [facility] 02-10-2024 13:22-0400 Body weight 62.73 kg [facility] 02-10-2024 13:22-0400 Diastolic blood pressure 80 mm[Hg] [facility] 02-10-2024 13:22-0400 Heart rate 66 /min [facility] 02-10-2024 13:220400 Respiratory rate 16 /min [facility] 02-10-2024 13:22-0400 SaO2% (BldA) [Mass fraction] 97 % [facility] 02-10-2024 13:22-0400 Systolic blood pressure 137 mm[Hg] [facility] 01-20-2024 15:20-0400 Body height 162.56 cm [facility] 01-20-2024 15:20-0400 Body mass index (BMI) [Ratio] 23.7 kg/m2 [facility] 01-20-2024 15:20-0400 Body temperature 97.4 [degF] [facility] 01-20-2024 15:20-0400 Body weight 62.76 kg [facility] 01-20-2024 15:20-0400 Diastolic blood pressure 79 mm[Hg] [facility] 01-20-2024 15:20-0400 Heart rate 73 /min [facility] 01-20-2024 15:20-0400 Respiratory rate 16 /min [facility] 01-20-2024 15:20-0400 SaO2% (BldA) [Mass fraction] 96 % [facility] 01-20-2024 15:20-0400 Systolic blood pressure 156 mm[Hg] [facility] 11-25-2023 14:38-0500 Body height 162.6 cm Sandeep Lenz MD Work Phone: [facility] 11-25-2023 14:38-0500 Body temperature 97.5 [degF] Sandeep Lenz MD Work Phone: [facility] 11-25-2023 14:38-0500 Body weight 63.9 kg Sandeep Lenz MD Work Phone: [facility] 11-25-2023 14:38-0500 Diastolic blood pressure 63 mm[Hg] Sandeep Lenz MD Work Phone: [facility] 11-25-2023 14:38-0500 Heart rate 70 /min Sandeep Lenz MD Work Phone: [facility] 11-25-2023 14:38-0500 Respiratory rate 18 /min Sandeep Lenz MD Work Phone: [facility] 11-25-2023 14:38-0500 SaO2% (BldA) [Mass fraction] 94 % Sandeep Lenz MD Work Phone: [facility] 11-25-2023 14:38-0500 Systolic blood pressure 144 mm[Hg] Sandeep Lenz MD Work Phone: [facility] 05-20-2023 15:10-0400 Body height 162.6 cm Sandeep Lenz MD Work Phone: [facility] 05-20-2023 15:10-0400 Body temperature 97.81 [degF] Sandeep Lenz MD Work Phone: [facility] 05-20-2023 15:10-0400 Body weight 58.88 kg Sandeep Lenz MD Work Phone: [facility] 05-20-2023 15:10-0400 Diastolic blood pressure 72 mm[Hg] Sandeep Lenz MD Work Phone: [facility] 05-20-2023 15:10-0400 Heart rate 68 /min Sandeep Lenz MD Work Phone: [facility] 05-20-2023 15:10-0400 Respiratory rate 16 /min Sandeep Lenz MD Work Phone: [facility] 05-20-2023 15:10-0400 SaO2% (BldA) [Mass fraction] 99 % Sandeep Lenz MD Work Phone: [facility] 05-20-2023 15:10-0400 Systolic blood pressure 168 mm[Hg] Sandeep Lenz MD Work Phone: [facility] 04-30-2023 14:20-0400 Body temperature 97.59 [degF] Chair Marcos Work Phone: [facility] 04-30-2023 14:20-0400 Diastolic blood pressure 72 mm[Hg] Chair Marcos Work Phone: [facility] 04-30-2023 14:20-0400 Heart rate 64 /min Chair Marcos Work Phone: [facility] 04-30-2023 14:20-0400 Respiratory rate 16 /min Chair Ada Work Phone: [facility] 04-30-2023 14:20-0400 SaO2% (BldA) [Mass fraction] 98 % Chair Ada Work Phone: [facility] 04-30-2023 14:20-0400 Systolic blood pressure 147 mm[Hg] Chair Ada Work Phone: [facility] 04-29-2023 15:21-0400 Body height 162.6 cm Sandeep Lenz MD Work Phone: [facility] 04-29-2023 15:21-0400 Body temperature 97 [degF] Sandeep Lenz MD Work Phone: [facility] 04-29-2023 15:21-0400 Body weight 58.24 kg Sandeep Lenz MD Work Phone: [facility] 04-29-2023 15:21-0400 Diastolic blood pressure 66 mm[Hg] Sandeep Lenz MD Work Phone: [facility] 04-29-2023 15:21-0400 Heart rate 66 /min Sandeep Lenz MD Work Phone: [facility] 04-29-2023 15:21-0400 Respiratory rate 16 /min Sandeep Lenz MD Work Phone: [facility] 04-29-2023 15:21-0400 SaO2% (BldA) [Mass fraction] 96 % Sandeep Lenz MD Work Phone: [facility] 04-29-2023 15:21-0400 Systolic blood pressure 153 mm[Hg] Sandeep Lenz MD Work Phone: [facility] 05-19-2022 11:30-0400 Diastolic blood pressure 80 mm[Hg] [facility] 05-19-2022 11:30-0400 Heart rate 68 /min [facility] 05-19-2022 11:30-0400 Respiratory rate 16 /min [facility] 05-19-2022 11:30-0400 SaO2% (BldA) [Mass fraction] 98 % [facility] 05-19-2022 11:30-0400 Systolic blood pressure 175 mm[Hg] [facility] 01-08-2022 13:03-0400 Body height 162.6 cm Sandeep Lenz MD Work Phone: [facility] 01-08-2022 13:03-0400 Body temperature 97.39 [degF] Sandeep Lenz MD Work Phone: [facility] 01-08-2022 13:03-0400 Body weight 64.23 kg Sandeep Lenz MD Work Phone: [facility] 01-08-2022 13:03-0400 Diastolic blood pressure 69 mm[Hg] Sandeep Lenz MD Work Phone: [facility] 01-08-2022 13:03-0400 Heart rate 68 /min Sandeep Lenz MD Work Phone: [facility] 01-08-2022 13:03-0400 Respiratory rate 16 /min Sandeep Lenz MD Work Phone: [facility] 01-08-2022 13:03-0400 SaO2% (BldA) [Mass fraction] 97 % Sandeep Lenz MD Work Phone: [facility] 01-08-2022 13:03-0400 Systolic blood pressure 150 mm[Hg] Sandeep Lenz MD Work Phone: [facility] 11-11-2021 13:00-0500 Diastolic blood pressure 69 mm[Hg] MD Eduardo Sharpe Work Phone: [facility] 11-11-2021 13:00-0500 Heart rate 65 /min MD Eduardo Sharpe Work Phone: [facility] 11-11-2021 13:00-0500 Respiratory rate 16 /min MD Eduardo Sharpe Work Phone: [facility] 11-11-2021 13:00-0500 SaO2% (BldA) [Mass fraction] 96 % MD Eduardo Sharpe Work Phone: [facility] 11-11-2021 13:00-0500 Systolic blood pressure 129 mm[Hg] MD Eduardo Sharpe Work Phone: [facility] 11-11-2021 12:00-0500 Body temperature 98 [degF] MD Eduardo Sharpe Work Phone: [facility] 11-11-2021 06:00-0500 Body weight 63 kg MD Eduardo Sharpe Work Phone: [facility] 11-10-2021 12:59-0500 Body height 163.83 cm MD Eduardo Sharpe Work Phone: [facility] 11-09-2021 18:45-0500 Body mass index (BMI) [Ratio] 23.8 kg/m2 MD Eduardo Sharpe Work Phone: [facility] Encounters Encounter Date Encounter Type Care Provider Facility Start: 06-14-2025 End: 06-14-2025 ambulatory EDUARDO SHARPE Facility:[facility] Start: 05-31-2025 End: 05-31-2025 ambulatory EDUARDO SHARPE Facility:[facility] Start: 03-25-2025 End: 03-25-2025 ambulatory Eduardo Sharpe MD Work Phone: [facility] Work Phone: Start: 03-25-2025 End: 03-25-2025 Patient encounter procedure Vince Rojo MD -[facility] Nephrology Jovani Work Phone: Start: 03-15-2025 End: 03-15-2025 ambulatory PHYSICIAN NO FAMILY Facility:[facility] Start: 03-15-2025 Non-patient / Non-visit Vince Rojo MD -[facility] Work Phone: Start: 01-25-2025 End: 01-25-2025 ambulatory [facility] Start: 12-31-2024 End: 12-31-2024 ambulatory [facility] Work Phone: Start: 12-31-2024 End: 12-31-2024 Patient encounter procedure [facility] Nephrology Jovani Work Phone: Start: 11-27-2024 End: 11-27-2024 Office outpatient visit 15 minutes Sandeep Lenz MD Work Phone: Hematology/Oncology Comment on above: Malignant neoplasm o f upper-outer quadrant of left breast in female, estrogen receptor positive (HCC) (Primary Dx); MGUS (monoclonal gammopathy of unknown significance); Monoclonal gammopathy of renal significance (MGRS); Stage 3 chronic kidney disease, unspecified whether stage 3a or 3b CKD (HCC) Start: 11-27-2024 End: 11-27-2024 ambulatory [facility] Facility:[facility] Start: 10-19-2024 End: 10-19-2024 Office outpatient visit 15 minutes Sandeep Lenz MD Work Phone: Hematology/Oncology Comment on above: Monoclonal gammopath y of renal significance (MGRS) (Primary Dx); MGUS (monoclonal gammopathy of unknown significance); Stage 3 chronic kidney disease, unspecified whether stage 3a or 3b CKD (HCC); Malignant neoplasm of breast in female, estrogen receptor positive, unspecified laterality, unspecified site of breast (HCC) Start: 10-19-2024 End: 10-19-2024 ambulatory [facility] Facility:[facility] Start: 08-18-2024 End: 08-18-[address] [facility] Start: 07-22-2024 End: 07-22-2024 ambulatory [facility] Facility:[facility] Start: 07-22-2024 End: 07-22-2024 Office outpatient visit 25 minutes Sandeep Lenz MD Work Phone: Hematology/Oncology Comment on above: 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); Stage 3 chronic kidney disease, unspecified whether stage 3a or 3b CKD (HCC); Malignant neoplasm of upper-outer quadrant of left breast in female, estrogen receptor positive (HCC) Start: 07-16-2024 End: 07-16-2024 ambulatory MD Eduardo Sharpe Work Phone: [facility] Work Phone: Start: 07-16-2024 End: 07-16-2024 Patient encounter procedure MD Eduardo Sharpe Work Phone: [facility] Nephrology Jovani Work Phone: Start: 05-26-2024 Non-patient / Non-visit MD Carlos Sharpe Work Phone: [facility] Physician [facility] Gastroenterology Work Phone: Start: 05-26-2024 End: 05-26-2024 Admission to same day surgery center MD Eduardo Sharpe Work Phone: [facility] Work Phone: Start: 05-26-2024 End: 05-26-2024 ambulatory MD Eduardo Sharpe Work Phone: [facility] Work Phone: Start: 05-05-2024 Telephone encounter Re kelly DO Work Phone: [facility] [place] Comment on above: Schedule Surgery Start: 04-20-2024 Telephone encounter Zuleyka Hull Hematology/Oncology Comment on above: Results; repeat CBC for H/H Start: 04-03-2024 Telephone encounter Ondina ni RN Hematology/Oncology Start: 04-02-2024 Orders Only Barrera stoll MD Work Phone: Angio Comment on above: Abnormal kidney func tion (Primary Dx) Renal biopsy Start: 04-01-2024 Telephone encounter Sandeep bazan MD Work Phone: [facility] Comment on above: Appointment Confirma tion Start: 03-27-2024 End: 06-10-2024 Telephone encounter Sandeep Lenz MD Work Phone: [facility] Start: 03-24-2024 End: 03-24-2024 ambulatory Sandeep [...] Work Phone: Hematology/Oncology Start: 03-20-2024 End: 03-20-2024 Subsequent hospital visit by physician Arrival Time Radiology Work Phone: Radiology [facility] Comment on above: Multiple myeloma not having achieved remission (HCC) [C90.00] Start: 03-04-2024 Telephone encounter Sandeep bazan MD Work Phone: [facility] Start: 02-24-2024 End: 02-24-2024 Office outpatient visit 40 minutes Sandeep Lenz MD Work Phone: Hematology/Oncology Comment on above: 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); Hypercalcemia; Stage 3 chronic kidney disease, unspecified whether stage 3a or 3b CKD (HCC); Malignant neoplasm of upper-outer quadrant of left breast in female, estrogen receptor positive (HCC) Start: 02-19-2024 End: 02-19-2024 ambulatory [facility] Start: 02-10-2024 Telephone encounter Zuleyka Hull Hematology/Oncology Comment on above: Patient Update; Appo intment Start: 02-10-2024 End: 02-10-2024 ambulatory [facility] Work Phone: Start: 02-10-2024 End: 02-10-2024 Patient encounter procedure [facility] Physician [facility] Nephrology Work Phone: Start: 02-03-2024 Non-patient / Non-visit [facility] Physician [facility] Work Phone: Start: 01-20-2024 End: 01-20-2024 ambulatory [facility] Work Phone: Start: 01-20-2024 End: 01-20-2024 Patient encounter procedure [facility] Nephrology Work Phone: Start: 11-25-2023 End: 11-25-2023 [...] malignant neoplasm of breast; Hypercalcemia Start: 10-31-2023 Bamboo flowsheet Mark Galindo hler DO Work Phone: [facility] Start: 10-31-2023 Bamboo flowsheet Mark Frederick Za hler DO Work Phone: [facility] Start: 10-31-2023 End: 10-31-2023 ambulatory MARK ISABEL Not Available Start: 08-19-2023 Telephone encounter Zuleyka Hull Hematology/Oncology Comment on above: Results Start: 06-05-2023 End: 06-05-2023 ambulatory Bala Hartman Other [facility] [employer] Other Start: 06-05-2023 Telephone encounter Bala Hartman [facility] Start: 05-21-2023 Telephone encounter Zuleyka Hull Hematology/Oncology Comment on above: Results Start: [...] encounter Sandeep bazan MD Work Phone: [facility] Comment on above: Referral Information (Nephrology) Start: 05-09-2023 Social Work Aleida Vargas LOAN PROCESSOR Hematolo gy/Oncology Start: 05-07-2023 Refill Sandeep aragon [...] stage 3a or 3b CKD (HCC) Start: 08-23-2022 End: 09-23-2022 ambulatory SHAIKH Barbara [...] End: 05-19-2022 ambulatory [facility] Emer[facility] y Triage, Treat and Transport Start: 05-19-2022 End: 05-19-2022 Emergency department patient visit [facility] Emergency Triage, Treat and Transport Comment on [...] procedure MD Eduardo Sharpe Work Phone: [facility] [place] Start: 12-22-2021 End: 01-19-[address] EDUARDO SHARPE Facility:[facility] Start: 11-30-2021 End: 11-30-2021 ambulatory Brayden Hernandez Other [facility] [employer] Other Start: 11-30-2021 Office outpatient vi sit 15 minutes Brayden Hernandez [facility] Neurosurgery Start: 11-21-2021 End: 12-21-2021 ambulatory SHAIKH Barbara AGUIAR Facility:H1 Start: 11-17-2021 End: 11-17-2021 Patient encounter procedure MD Eduardo Sharpe Work Phone: [facility] Ctr-CT Scan [place] Start: 11-09-2021 End: 11-11-2021 Evaluation and management of inpatient MD Eduardo Sharpe Work Phone: [facility] Ctr-4 [place] [facility] Start: 11-09-2021 End: 11-09-2021 ambulatory MIKALA HIGGINS Facility:H1 Start: 10-24-2021 End: 11-20-2021 ambulatory SHAIKH Barbara AGUIAR Facility:H1 Start: 09-28-2021 End: 10-23-2021 ambulatory TIBURCIO HENDERSON Facility:H1 Procedures Date Procedure Procedure Detail Performing Clinician Start: 05-26-2024 Esophagogastroduodenoscopy MD Eduardo arias Work Phone: Start: 04-17-2024 H/O: surgery Status post biopsy of kidney Zuleyka Srivastava RN Start: 03-20-2024 Pet imaging for [...] Treatment Date Care Activity Detail Author Start: 11-28-2027 Diabetes Screening Diabetes Screening [facility] Start: 10-19-2027 Diabetes Screening Diabetes Screening [facility] Start: 04-14-2027 Diabetes Screening Diabetes Screening [facility] Start: 02-23-2027 Diabetes Screening Diabetes Screening [facility] Start: 11-24-2026 Diabetes Screening Diabetes Screening [facility] Start: 08-19-2026 Diabetes Screening Diabetes Screening [facility] Start: 05-20-2026 DIABETES SCREEN DIABETES SCREEN [facility] Start: 05-20-2026 Diabetes Screening Diabetes Screening [facility] Start: 04-30-2026 DIABETES SCREEN DIABETES SCREEN [facility] Start: 04-29-2026 DIABETES SCREEN DIABETES SCREEN [facility] Start: 11-27-2025 Complete blood count Hemoglobin/Hematocrit [facility] Start: 11-27-2025 Creatinine measurement Serum Creatinine [facility] Start: 10-19-2025 Complete blood count Hemoglobin/Hematocrit [facility] Start: 10-19-2025 Creatinine measurement Serum Creatinine [facility] Start: 06-07-2025 End: 06-07-2025 Follow-up encounter 06/07/2025 11:00 AM EDT Visit (SP) Office Hematology/Oncology [address] [place] [address] Sandeep Lenz MD [address] [place] [address] 6 month follow up labs 1 week prior Hematology/Oncology Comment on above: 6 month follow up labs 1 week prior Start: 05-31-2025 End: 05-31-2025 Patient encounter procedure 05/31/2025 11:00 AM EDT Office Visit [facility] [address] [place] [address] 6 month follow up labs 1 week prior [facility] Comment on above: 6 month follow up labs 1 week prior Start: 04-23-2025 Complete blood count Hemoglobin/Hematocrit [facility] Start: 04-20-2025 Complete blood count Hemoglobin/Hematocrit [facility] Start: 04-14-2025 Creatinine measurement Serum Creatinine [facility] Start: 02-23-2025 Complete blood count Hemoglobin/Hematocrit [facility] Start: 02-23-2025 Creatinine measurement Serum Creatinine [facility] Start: 01-08-2025 DIABETES SCREEN DIABETES SCREEN [facility] Start: 11-30-2024 End: 10-19-2025 [id number] [Mass/volume] in Serum or Plasma B2 MICROGLOBULIN Lab Routine 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) Stage 3 chronic kidney disease, unspecified whether stage 3a or 3b CKD (HCC) Expected: 11/30/2024 (Approximate), Expires: 10/19/2025 [facility] Work Phone: Comment on above: Expected: 11/30/2024 (Approximate), Expi res: 10/19/2025 Start: 11-30-2024 End: 10-19-2025 Calcium.ionized [Moles/volume] in Blood CALCIUM, IONIZED Lab Routine 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) Stage 3 chronic kidney disease, unspecified whether stage 3a or 3b CKD (HCC) Expected: 11/30/2024 (Approximate), Expires: 10/19/2025 [facility] Comment on above: Expected: 11/30/2024 (Approximate), Expi res: 10/19/2025 Start: 11-30-2024 End: 03-01-2025 Cancer Ag 15-3 [Units/volume] in Serum or Plasma CA 15-3 BLD Lab Routine 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) Stage 3 chronic kidney disease, unspecified whether stage 3a or 3b CKD (HCC) Malignant neoplasm of breast in female, estrogen receptor positive, unspecified laterality, unspecified site of breast (HCC) Expected: 11/30/2024 (Approximate), Expires: 03/01/2025 [facility] Comment on above: Expected: 11/30/2024 (Approximate), Expi res: 03/01/2025 Start: 11-30-2024 End: 03-01-2025 Cancer Ag 27-29 [Units/volume] in Serum or Plasma CA 27.29 BLOOD Lab Routine 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) Stage 3 chronic kidney disease, unspecified whether stage 3a or 3b CKD (HCC) Malignant neoplasm of breast in female, estrogen receptor positive, unspecified laterality, unspecified site of breast (HCC) Expected: 11/30/2024 (Approximate), Expires: 03/01/2025 [facility] Comment on above: Expected: 11/30/2024 (Approximate), Expi res: 03/01/2025 Start: 11-30-2024 End: 10-19-2025 CBC W Auto Differential panel - Blood [facility] Comment on above: Expected: 11/30/2024 (Approximate), Expi res: 10/19/2025 Expected: 11/30/2024 (Approximate), Expires: 03/01/2025 Start: 11-30-2024 End: 10-19-2025 Comprehensive metabolic 2000 panel - Serum or Plasma [facility] Comment on above: Expected: 11/30/2024 (Approximate), Expi res: 10/19/2025 Expected: 11/30/2024 (Approximate), Expires: 03/01/2025 Start: 11-30-2024 End: 03-01-2025 KAPPA/DIAZ,FREE,SER KAPPA/DIAZ,FREE,SER Lab Routine 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) Stage 3 chronic kidney disease, unspecified whether stage 3a or 3b CKD (HCC) Expected: 11/30/2024 (Approximate), Expires: 03/01/2025 [facility] Comment on above: Expected: 11/30/2024 (Approximate), Expi res: 03/01/2025 Start: 11-30-2024 End: 10-19-2025 Lactate dehydrogenase [Enzymatic activity/volume] in Serum or Plasma LACTATE DEHYDROGENASE Lab Routine 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) Stage 3 chronic kidney disease, unspecified whether stage 3a or 3b CKD (HCC) Expected: 11/30/2024 (Approximate), Expires: 10/19/2025 [facility] Comment on above: Expected: 11/30/2024 (Approximate), Expi res: 10/19/2025 Start: 11-30-2024 End: 10-19-2025 MONOCLONAL PROTEIN, SERUM (BLOOD) MONOCLONAL PROTEIN, SERUM (BLOOD) Lab Routine 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) Stage 3 chronic kidney disease, unspecified whether stage 3a or 3b CKD (HCC) Expected: 11/30/2024 (Approximate), Expires: 10/19/2025 [facility] Comment on above: Expected: 11/30/2024 (Approximate), Expi res: 10/19/2025 Start: 11-30-2024 End: 10-19-2025 Phosphate [Mass/volume] in Serum or Plasma PHOSPHORUS INORGANIC Lab Routine 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) Stage 3 chronic kidney disease, unspecified whether stage 3a or 3b CKD (HCC) Expected: 11/30/2024 (Approximate), Expires: 10/19/2025 [facility] Comment on above: Expected: 11/30/2024 (Approximate), Expi res: 10/19/2025 Start: 11-30-2024 End: 10-19-2025 PROTEIN ELECTROPHORESIS SERUM W/INTERP PROTEIN ELECTROPHORESIS SERUM W/INTERP Lab Routine 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) Stage 3 chronic kidney disease, unspecified whether stage 3a or 3b CKD (HCC) Expected: 11/30/2024 (Approximate), Expires: 10/19/2025 [facility] Comment on above: Expected: 11/30/2024 (Approximate), Expi res: 10/19/2025 Start: 11-30-2024 End: 10-19-2025 Urate [Mass/volume] in Serum or Plasma URIC ACID Lab Routine 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) Stage 3 chronic kidney disease, unspecified whether stage 3a or 3b CKD (HCC) Expected: 11/30/2024 (Approximate), Expires: 10/19/2025 [facility] Comment on above: Expected: 11/30/2024 (Approximate), Expi res: 10/19/2025 Start: 11-24-2024 End: 02-23-2025 Cancer Ag 15-3 [Units/volume] in Serum or Plasma CA 15-3 BLD Lab Routine Malignant neoplasm of upper-outer quadrant of left breast in female, estrogen receptor positive (HCC) Breast screening Expected: 11/24/2024 (Approximate), Expires: 02/23/2025 [facility] Work Phone: Comment on above: Expected: 11/24/2024 (Approximate), Expi res: 02/23/2025 Start: 11-24-2024 End: 02-23-2025 Cancer Ag 27-29 [Units/volume] in Serum or Plasma CA 27.29 BLOOD Lab Routine Malignant neoplasm of upper-outer quadrant of left breast in female, estrogen receptor positive (HCC) Breast screening Expected: 11/24/2024 (Approximate), Expires: 02/23/2025 [facility] Work Phone: Comment on above: Expected: 11/24/2024 (Approximate), Expi res: 02/23/2025 Start: 11-24-2024 End: 02-23-2025 CBC W Auto Differential panel - Blood CBC + DIFF Lab Routine Malignant neoplasm of upper-outer quadrant of left breast in female, estrogen receptor positive (HCC) Breast screening Expected: 11/24/2024 (Approximate), Expires: 02/23/2025 [facility] Work Phone: Comment on above: Expected: 11/24/2024 (Approximate), Expi res: 02/23/2025 Start: 11-24-2024 Complete blood count Hemoglobin/Hematocrit [facility] Start: 11-24-2024 End: 02-23-2025 Comprehensive metabolic 2000 panel - Serum or Plasma COMP METABOLIC PANEL Lab Routine Malignant neoplasm of upper-outer quadrant of left breast in female, estrogen receptor positive (HCC) Breast screening Expected: 11/24/2024 (Approximate), Expires: 02/23/2025 [facility] Work Phone: Comment on above: Expected: 11/24/2024 (Approximate), Expi res: 02/23/2025 Start: 11-24-2024 Creatinine measurement Serum Creatinine [facility] Start: 11-23-2024 End: 11-23-2024 Follow-up encounter 11/23/2024 11:00 AM EST Visit (SP) Office Hematology/Oncology [address] [place] [address] Sandeep Lenz MD [facility] [address] [place] [address] 1 year follow up with lab Hematology/Oncology Comment on above: 1 year follow up with lab Start: 11-23-2024 End: 11-23-2024 Patient encounter procedure 11/23/2024 10:45 AM EST Office Visit [facility] [address] [place] [address] [address] [place], [place] [address] 1 year follow up with lab [facility] Comment on above: 1 year follow up with lab Start: 10-27-2024 End: 12-24-2024 MG Breast Screening SHANNEN SCREENING Radiology Routine Malignant neoplasm of upper-outer quadrant of left breast in female, estrogen receptor positive (HCC) Breast screening Encounter for screening mammogram for malignant neoplasm of breast Expected: 10/27/2024 (Approximate), Expires: 12/24/2024 [facility] Work Phone: Comment on above: Expected: 10/27/2024 (Approximate), Expi res: 12/24/2024 Start: 10-22-2024 End: 07-22-2025 [id number] [Mass/volume] in Serum or Plasma B2 MICROGLOBULIN Lab Routine MGUS (monoclonal gammopathy of unknown significance) Stage 3 chronic kidney disease, unspecified whether stage 3a or 3b CKD (HCC) Malignant neoplasm of upper-outer quadrant of left breast in female, estrogen receptor positive (HCC) Expected: 10/22/2024 (Approximate), Expires: 07/22/2025 [facility] Work Phone: Comment on above: Expected: 10/22/2024 (Approximate), Expi res: 07/22/2025 Start: 10-22-2024 End: 07-22-2025 Calcium.ionized [Moles/volume] in Blood CALCIUM, IONIZED Lab Routine MGUS (monoclonal gammopathy of unknown significance) Stage 3 chronic kidney disease, unspecified whether stage 3a or 3b CKD (HCC) Malignant neoplasm of upper-outer quadrant of left breast in female, estrogen receptor positive (HCC) Expected: 10/22/2024 (Approximate), Expires: 07/22/2025 [facility] Comment on above: Expected: 10/22/2024 (Approximate), Expi res: 07/22/2025 Start: 10-22-2024 End: 07-22-2025 CBC W Auto Differential panel - Blood COMPLETE BLOOD COUNT AND DIFFERENTIAL Lab Routine MGUS (monoclonal gammopathy of unknown significance) Stage 3 chronic kidney disease, unspecified whether stage 3a or 3b CKD (HCC) Malignant neoplasm of upper-outer quadrant of left breast in female, estrogen receptor positive (HCC) Expected: 10/22/2024 (Approximate), Expires: 07/22/2025 [facility] Comment on above: Expected: 10/22/2024 (Approximate), Expi res: 07/22/2025 Start: 10-22-2024 End: 07-22-2025 Comprehensive metabolic 2000 panel - Serum or Plasma COMPREHENSIVE METABOLIC PANEL Lab Routine MGUS (monoclonal gammopathy of unknown significance) Stage 3 chronic kidney disease, unspecified whether stage 3a or 3b CKD (HCC) Malignant neoplasm of upper-outer quadrant of left breast in female, estrogen receptor positive (HCC) Expected: 10/22/2024 (Approximate), Expires: 07/22/2025 [facility] Comment on above: Expected: 10/22/2024 (Approximate), Expi res: 07/22/2025 Start: 10-22-2024 End: 01-21-2025 KAPPA/DIAZ,FREE,SER KAPPA/DIAZ,FREE,SER Lab Routine MGUS (monoclonal gammopathy of unknown significance) Stage 3 chronic kidney disease, unspecified whether stage 3a or 3b CKD (HCC) Malignant neoplasm of upper-outer quadrant of left breast in female, estrogen receptor positive (HCC) Expected: 10/22/2024 (Approximate), Expires: 01/21/2025 [facility] Comment on above: Expected: 10/22/2024 (Approximate), Expi res: 01/21/2025 Start: 10-22-2024 End: 07-22-2025 Lactate dehydrogenase [Enzymatic activity/volume] in Serum or Plasma LACTATE DEHYDROGENASE Lab Routine MGUS (monoclonal gammopathy of unknown significance) Stage 3 chronic kidney disease, unspecified whether stage 3a or 3b CKD (HCC) Malignant neoplasm of upper-outer quadrant of left breast in female, estrogen receptor positive (HCC) Expected: 10/22/2024 (Approximate), Expires: 07/22/2025 [facility] Comment on above: Expected: 10/22/2024 (Approximate), Expi res: 07/22/2025 Start: 10-22-2024 End: 07-22-2025 MONOCLONAL PROTEIN, SERUM (BLOOD) MONOCLONAL PROTEIN, SERUM (BLOOD) Lab Routine MGUS (monoclonal gammopathy of unknown significance) Stage 3 chronic kidney disease, unspecified whether stage 3a or 3b CKD (HCC) Malignant neoplasm of upper-outer quadrant of left breast in female, estrogen receptor positive (HCC) Expected: 10/22/2024 (Approximate), Expires: 07/22/2025 [facility] Comment on above: Expected: 10/22/2024 (Approximate), Expi res: 07/22/2025 Start: 10-22-2024 End: 07-22-2025 Phosphate [Mass/volume] in Serum or Plasma PHOSPHORUS INORGANIC Lab Routine MGUS (monoclonal gammopathy of unknown significance) Stage 3 chronic kidney disease, unspecified whether stage 3a or 3b CKD (HCC) Malignant neoplasm of upper-outer quadrant of left breast in female, estrogen receptor positive (HCC) Expected: 10/22/2024 (Approximate), Expires: 07/22/2025 [facility] Comment on above: Expected: 10/22/2024 (Approximate), Expi res: 07/22/2025 Start: 10-22-2024 End: 07-22-2025 PROTEIN ELECTROPHORESIS SERUM W/INTERP PROTEIN ELECTROPHORESIS SERUM W/INTERP Lab Routine MGUS (monoclonal gammopathy of unknown significance) Stage 3 chronic kidney disease, unspecified whether stage 3a or 3b CKD (HCC) Malignant neoplasm of upper-outer quadrant of left breast in female, estrogen receptor positive (HCC) Expected: 10/22/2024 (Approximate), Expires: 07/22/2025 [facility] Comment on above: Expected: 10/22/2024 (Approximate), Expi res: 07/22/2025 Start: 10-22-2024 End: 01-21-2025 SERUM VISCOSITY SERUM VISCOSITY Lab Routine MGUS (monoclonal gammopathy of unknown significance) Stage 3 chronic kidney disease, unspecified whether stage 3a or 3b CKD (HCC) Malignant neoplasm of upper-outer quadrant of left breast in female, estrogen receptor positive (HCC) Expected: 10/22/2024 (Approximate), Expires: 01/21/2025 [facility] Comment on above: Expected: 10/22/2024 (Approximate), Expi res: 01/21/2025 Start: 10-22-2024 End: 07-22-2025 Urate [Mass/volume] in Serum or Plasma URIC ACID Lab Routine MGUS (monoclonal gammopathy of unknown significance) Stage 3 chronic kidney disease, unspecified whether stage 3a or 3b CKD (HCC) Malignant neoplasm of upper-outer quadrant of left breast in female, estrogen receptor positive (HCC) Expected: 10/22/2024 (Approximate), Expires: 07/22/2025 [facility] Comment on above: Expected: 10/22/2024 (Approximate), Expi res: 07/22/2025 Start: 10-19-2024 End: 10-19-2024 ambulatory 10/19/2024 11:00 AM EST Visit (SP) Office Hematology/Oncology [address] [place] [address] Sandeep Lenz MD [address] [place] [address] 3 month lab Hematology/Oncology Comment on above: 3 month lab Start: 10-12-2024 End: 10-12-2024 Patient encounter procedure 10/12/2024 10:45 AM EST Office Visit [facility] [address] [place] [address] 3 month lab [facility] Comment on above: 3 month lab Start: 09-23-2024 Advance Directive Discussion Advance Directive Discussion [facility] Start: 08-19-2024 Hemoglobin/Hematocrit Hemoglobin/Hematocrit [facility] Start: 08-19-2024 Serum Creatinine Serum Creatinine [facility] Start: 05-26-2024 [facility] Start: 05-24-2024 Covid-19 Vaccine ( season) Covid-19 Vaccine () [facility] Start: 05-24-2024 Covid-19 Vaccine ( season) Covid-19 Vaccine ( season) [facility] Start: 05-24-2024 Influenza vaccination [facility] Start: 05-20-2024 HEMOGLOBIN/HEMATOCRIT HEMOGLOBIN/HEMATOCRIT [facility] Start: 05-20-2024 SERUM CREATININE SERUM CREATININE [facility] Start: 04-30-2024 HEMOGLOBIN/HEMATOCRIT HEMOGLOBIN/HEMATOCRIT [facility] Start: 04-30-2024 SERUM CREATININE SERUM CREATININE [facility] Start: 04-16-2024 End: 04-16-2024 Admission to same day surgery center 04/16/2024 11:00 AM EDT - 04/16/2024 12:06 PM EDT Surgery [facility]io [address] [place] [address] Akosua Andrade MD [address] [place] [address] BIOPSY KIDNEY PERCUTANEOUS Angio Comment on above: BIOPSY KIDNEY PERCUTANEOUS Start: 04-16-2024 End: 04-16-2024 Renal biopsy prq trocar/needle BIOPSY KIDNEY PERCUTANEOUS Elevated LFTs 04/16/2024 11:00 AM EDT [facility] ANG[facility] HB6 Start: 04-16-2024 Subsequent hospital visit by physician 04/16/2024 11:00 AM EDT Hospital Encounter [facility]io [address] [place] [address] Akosua Andrade MD [address] [place] [address] Elevated LFTs [R79.89] Angio Comment on above: Elevated LFTs [R79.89] Start: 04-02-2024 End: 07-02-2024 CBC panel - Blood by Automated count COMPLETE BLOOD COUNT Lab Routine Abnormal kidney function Expected: 04/02/2024, Expires: 07/02/2024 [facility] Work Phone: Comment on above: Expected: 04/02/2024, Expires: Start: 04-02-2024 End: 07-02-2024 PT panel - Platelet poor plasma by Coagulation assay PROTHROMBIN TIME Lab Routine Abnormal kidney function Expected: 04/02/2024, Expires: 07/02/2024 [facility] Comment on above: Expected: 04/02/2024, Expires: Start: 03-24-2024 End: 03-24-2024 ambulatory 03/24/2024 1:15 PM EDT [facility] [address] [place] [address] [address] [place], [place] [address] Sandeep Lenz MD [address] [place] [address] [address] [place], [place] [address] Rosenda called back and ok'd date and time change for this appt Hematology/Oncology Comment on above: Rosenda called back and ok'd date and ti me change for this appt Start: 03-17-2024 End: 03-17-2024 ambulatory 03/17/2024 2:45 PM EDT [facility] [address] [place] [address] [address] [place] [address] Sandeep Lenz MD [address] [place] [address] [address] [place], [place] [address] 15 day virtual visit for lab results Hematology/Oncology Comment on above: 15 day virtual visit for lab results Start: 02-24-2024 End: 02-23-2025 [id number] [Mass/volume] in Serum or Plasma [facility] Work Phone: Comment on above: Expected: 02/24/2024, Expires: Start: 02-24-2024 End: 02-23-2025 MONOCLONAL PROT 24 UR W/INTERP MONOCLONAL PROT 24 UR W/INTERP Lab Routine MGUS (monoclonal gammopathy of unknown significance) Expected: 02/24/2024, Expires: 02/23/2025 [facility] Comment on above: Expected: 02/24/2024, Expires: Start: 02-24-2024 End: 02-23-2025 MONOCLONAL PROTEIN, SERUM (BLOOD) [facility] Comment on above: Expected: 02/24/2024, Expires: Start: 02-24-2024 End: 02-23-2025 PROT ELEC UR 24HR W/M SPIKE AND INTERP PROT ELEC UR 24HR W/M SPIKE AND INTERP Lab Routine MGUS (monoclonal gammopathy of unknown significance) Expected: 02/24/2024, Expires: 02/23/2025 [facility] Comment on above: Expected: 02/24/2024, Expires: Start: 02-24-2024 End: 02-23-2025 PROTEIN ELECTROPHORESIS SERUM W/INTERP [facility] Comment on above: Expected: 02/24/2024, Expires: 5 Start: 02-24-2024 End: 02-24-2024 Follow-up encounter 02/24/2024 11:30 AM EDT Visit (SP) Office Hematology/Oncology [address] [place] [address] Sandeep Lenz MD [address] [place] [address] follow up with lab Hematology/Oncology Comment on above: follow up with lab Start: 02-24-2024 End: 02-24-2024 Patient encounter procedure 02/24/2024 11:15 AM EDT Office Visit [facility] [address] [place] [address] [address] [place], [place] [address] [address] [facility] Comment on above: lab Start: 11-28-2023 End: 11-28-2023 Patient encounter procedure 11/28/2023 8:10 AM EST Procedure Visit [facility] Mark Isabel, DO [address] [place] [address] [facility] Start: 11-25-2023 End: 02-24-2024 Cancer Ag 27-29 [Units/volume] in Serum or Plasma CA 27.29 BLOOD Lab Routine Stage 3 chronic kidney disease, unspecified whether stage 3a or 3b CKD (HCC) Malignant neoplasm of upper-outer quadrant of left breast in female, estrogen receptor positive (HCC) Breast screening Encounter for screening mammogram for malignant neoplasm of breast Hypercalcemia Expected: 11/25/2023, Expires: 02/24/2024 [facility] Work Phone: Comment on above: Expected: 11/25/2023, Expires: 4 Start: 11-25-2023 End: 02-24-2024 CBC W Auto Differential panel - Blood CBC + DIFF Lab Routine Stage 3 chronic kidney disease, unspecified whether stage 3a or 3b CKD (HCC) Malignant neoplasm of upper-outer quadrant of left breast in female, estrogen receptor positive (HCC) Breast screening Encounter for screening mammogram for malignant neoplasm of breast Hypercalcemia Expected: 11/25/2023, Expires: 02/24/2024 [facility] Work Phone: Comment on above: Expected: 11/25/2023, [...] of breast Hypercalcemia Expected: 11/25/2023, Expires: 02/24/2024 [facility] Work Phone: Comment on above: Expected: 11/25/2023, Expires: Start: 09-23-2023 Advance Directive Discussion Advance Directive Discussion [facility] Start: 09-23-2023 Behavioral Health Screening Behavioral Health Screening [facility] Start: 09-23-2023 Depression Assessment Depression Assessment [facility] Start: 05-24-2023 Covid-19 Vaccine () Covid-19 Vaccine () [facility] Start: 05-24-2023 Influenza vaccination [facility] Start: 04-29-2023 End: 06-29-2023 Parathyrin related protein [Moles/volume] in Serum or Plasma PTH RELATED PEPTIDE Lab Routine Malignant neoplasm of upper-outer quadrant of left breast in female, estrogen receptor positive (HCC) Hypercalcemia Expected: 04/29/2023, Expires: 06/29/2023 [facility] Work Phone: Comment on above: Expected: 04/29/2023, Expires: Start: 04-29-2023 End: 06-29-2023 PTH, INTACT (WITHOUT CALCIUM) PTH, INTACT (WITHOUT CALCIUM) Lab Routine Malignant neoplasm of upper-outer quadrant of left breast in female, estrogen receptor positive (HCC) Hypercalcemia Expected: 04/29/2023, Expires: 06/29/2023 [facility] Work Phone: Comment on above: Expected: 04/29/2023, Expires: Start: 09-23-2022 ADVANCE DIRECTIVE DISCUSSION ADVANCE DIRECTIVE DISCUSSION [facility] Start: 09-23-2022 DEPRESSION ASSESSMENT DEPRESSION ASSESSMENT [facility] Start: 07-09-2022 End: 09-08-2022 25-hydroxyvitamin D3 [Mass/volume] in Serum or Plasma VITAMIN D 25 HYDROXY Lab Routine Malignant neoplasm of upper-outer quadrant of left breast in female, estrogen receptor positive (HCC) Encounter for screening for osteoporosis Hypercalcemia Expected: 07/09/2022 (Approximate), Expires: 09/08/2022 [facility] Work Phone: Comment on above: Expected: 07/09/2022 (Approximate), Expi res: 09/08/2022 Start: 07-09-2022 End: 09-08-2022 Calcitriol [Mass/volume] in Serum or Plasma VITAMIN D1 25-DIHYDR Lab Routine Malignant neoplasm of upper-outer quadrant of left breast in female, estrogen receptor positive (HCC) Encounter for screening for osteoporosis Expected: 07/09/2022 (Approximate), Expires: 09/08/2022 [facility] Work Phone: Comment on above: Expected: 07/09/2022 (Approximate), Expi res: 09/08/2022 Start: 07-09-2022 End: 06-30-2023 CBC W Auto Differential panel - Blood CBC + DIFF Lab Routine Malignant neoplasm of upper-outer quadrant of left breast in female, estrogen receptor positive (HCC) Encounter for screening for osteoporosis Expected: 07/09/2022 (Approximate), Expires: 06/30/2023 [facility] Work Phone: Comment on above: Expected: 07/09/2022 (Approximate), Expi res: 06/30/2023 Start: 07-09-2022 End: 06-30-2023 Comprehensive metabolic 2000 panel - Serum or Plasma COMP METABOLIC PANEL Lab Routine Malignant neoplasm of upper-outer quadrant of left breast in female, estrogen receptor positive (HCC) Encounter for screening for osteoporosis Expected: 07/09/2022 (Approximate), Expires: 06/30/2023 [facility] Work Phone: Comment on above: Expected: 07/09/2022 (Approximate), Expi res: 06/30/2023 Start: 06-23-2022 Influenza vaccination Influenza Vaccine (#1) [facility] Start: 05-24-2022 Influenza vaccination INFLUENZA (#1) [facility] Start: 09-23-2021 ADVANCE DIRECTIVE DISCUSSION ADVANCE DIRECTIVE DISCUSSION [facility] Start: 09-23-2021 DEPRESSION ASSESSMENT DEPRESSION ASSESSMENT [facility] Start: 03-10-2021 Adult depression screening assessment DEPRESSION SCREENING [facility] Start: 2019 RSV Vaccine (1 - 1-dose 75+ series) RSV Vaccine (1 - 1-dose 75+ series) [facility] Start: 06-17-2019 Pneumococcal Vaccine: 65+ (2 - PPSV23 or PCV20) Pneumococcal Vaccine: 65+ (2 - PPSV23 or PCV20) [facility] Start: 06-17-2019 PNEUMOCOCCAL: 65+ (2 - PPSV23 if available, else PCV20) PNEUMOCOCCAL: 65+ (2 - PPSV23 if available, else PCV20) [facility] Start: 06-17-2019 PNEUMOCOCCAL: 65+ (2 - PPSV23 or PCV20) PNEUMOCOCCAL: 65+ (2 - PPSV23 or PCV20) [facility] Start: 2009 BONE DENSITY BONE DENSITY [facility] Start: 2009 Bone Density Screening Bone Density Screening [facility] Start: 2009 Pneumococcal vaccination Pneumococcal Vaccine(s) (65+ yrs) (1 - PCV) [facility] Start: 2009 PNEUMOVAX AGE 65 AND OVER WITH 5YR LOOKBACK (#1) PNEUMOVAX AGE 65 AND OVER WITH 5YR LOOKBACK (#1) [facility] Start: 2009 Screening for osteoporosis [facility] Start: 2004 RSV Vaccine (1 - 1-dose 60+ series) RSV Vaccine (1 - 1-dose 60+ series) [facility] Start: 1994 Shingles (RZV) Vaccine (1 of 2) Shingles (RZV) Vaccine (1 of 2) [facility] Start: 1994 SHINGRIX VACCINE (1 of 2) SHINGRIX VACCINE (1 of 2) [facility] Start: 1963 Urine microalbumin profile [facility] Start: 1962 ANNUAL PCP TEAM CHRONIC DISEASE VISIT ANNUAL PCP TEAM CHRONIC DISEASE VISIT [facility] Start: 1962 Anxiety Screening Anxiety Screening [facility] Start: 1962 Depression Screening Depression Screening [facility] Start: 1962 HEPATITIS C SCREENING HEPATITIS C SCREENING [facility] Start: 1962 Hepatitis C screening Hepatitis C Antibody [facility] Start: 1962 Tetanus + diphtheria + acellular pertussis vaccine (product) Tdap Booster [facility] Start: 1956 COVID-19 VACCINE (1) COVID-19 VACCINE (1) [facility] Start: 04-09-1945 COVID-19 Vaccine (#1) COVID-19 Vaccine (#1) [facility] End: 11-27-2025 [id number] [Mass/volume] in Serum or Plasma B2 MICROGLOBULIN Lab Routine 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) Stage 3 chronic kidney disease, unspecified whether stage 3a or 3b CKD (HCC) Malignant neoplasm of upper-outer quadrant of left breast in female, estrogen receptor positive (HCC) Every 6 months for 3 Occurrences starting 11/27/2024 until 11/27/2025 [facility] Work Phone: Comment on above: Every 6 months for 3 Occurrences startin g 11/27/2024 until 11/27/2025 End: 05-28-2024 Bone &/joint imaging whole body NM BONE WHOLE BODY Radiology Routine Malignant neoplasm of breast in female, estrogen receptor positive, unspecified laterality, unspecified site of breast (HCC) 1 Occurrences starting 04/29/2023 until 05/28/2024 [facility] Work Phone: Comment on above: [...] for 9 Occurrences starting 05/20/2023 until 05/19/2024 [facility] Work Phone: Comment on above: [...] Occurrences starting 05/20/2023 until 05/19/2024, 1 completed [facility] Work Phone: Comment on above: Every 6 weeks for 9 Occurrences starting 05/20/2023 until 05/19/2024, 1 completed End: 11-27-2025 Calcium.ionized [Moles/volume] in Blood CALCIUM, IONIZED Lab Routine 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) Stage 3 chronic kidney disease, unspecified whether stage 3a or 3b CKD (HCC) Malignant neoplasm of upper-outer quadrant of left breast in female, estrogen receptor positive (HCC) Every 6 months for 3 Occurrences starting 11/27/2024 until 11/27/2025 [facility] Comment on above: Every 6 months for 3 Occurrences startin g 11/27/2024 until 11/27/2025 End: 11-27-2025 Cancer Ag 15-3 [Units/volume] in Serum or Plasma CA 15-3 BLD Lab Routine 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) Stage 3 chronic kidney disease, unspecified whether stage 3a or 3b CKD (HCC) Malignant neoplasm of upper-outer quadrant of left breast in female, estrogen receptor positive (HCC) Every 6 months for 3 Occurrences starting 11/27/2024 until 11/27/2025 [facility] Comment on above: Every 6 months for 3 Occurrences startin g 11/27/2024 until 11/27/2025 End: 05-19-2024 CBC W Auto Differential panel - Blood CBC + DIFF Lab Routine Hypercalcemia Malignant neoplasm of upper-outer quadrant of left breast in female, estrogen receptor positive (HCC) Stage 3 chronic kidney disease, unspecified whether stage 3a or 3b CKD (HCC) Every 6 weeks for 9 Occurrences starting 05/20/2023 until 05/19/2024, 1 completed [facility] Work Phone: Comment on above: Every 6 weeks for 9 Occurrences starting 05/20/2023 until 05/19/2024, 1 completed End: 11-27-2025 CBC W Auto Differential panel - Blood COMPLETE BLOOD COUNT AND DIFFERENTIAL Lab Routine 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) Stage 3 chronic kidney disease, unspecified whether stage 3a or 3b CKD (HCC) Malignant neoplasm of upper-outer quadrant of left breast in female, estrogen receptor positive (HCC) Every 6 months for 3 Occurrences starting 11/27/2024 until 11/27/2025 [facility] Comment on above: Every 6 months for 3 Occurrences startin g 11/27/2024 until 11/27/2025 End: 11-27-2025 Cobalamin (Vitamin B12) [Mass/volume] in Serum or Plasma VITAMIN B12 Lab Routine 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) Stage 3 chronic kidney disease, unspecified whether stage 3a or 3b CKD (HCC) Malignant neoplasm of upper-outer quadrant of left breast in female, estrogen receptor positive (HCC) Every 6 months for 3 Occurrences starting 11/27/2024 until 11/27/2025 [facility] Comment on above: Every 6 months for 3 Occurrences startin g 11/27/2024 until 11/27/2025 End: 05-19-2024 Comprehensive metabolic 2000 panel - Serum or Plasma COMP METABOLIC PANEL Lab Routine Hypercalcemia Malignant neoplasm of upper-outer quadrant of left breast in female, estrogen receptor positive (HCC) Stage 3 chronic kidney disease, unspecified whether stage 3a or 3b CKD (HCC) Every 6 weeks for 9 Occurrences starting 05/20/2023 until 05/19/2024, 1 completed [facility] Work Phone: Comment on above: Every 6 weeks for 9 Occurrences starting 05/20/2023 until 05/19/2024, 1 completed End: 11-27-2025 Comprehensive metabolic 2000 panel - Serum or Plasma COMPREHENSIVE METABOLIC PANEL Lab Routine 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) Stage 3 chronic kidney disease, unspecified whether stage 3a or 3b CKD (HCC) Malignant neoplasm of upper-outer quadrant of left breast in female, estrogen receptor positive (HCC) Every 6 months for 3 Occurrences starting 11/27/2024 until 11/27/2025 [facility] Comment on above: Every 6 months for 3 Occurrences startin g 11/27/2024 until 11/27/2025 End: 04-03-2025 EGD DIAGNOSTIC EGD DIAGNOSTIC Endoscopy Routine Abnormal gastrointestinal PET scan Gastritis, presence of bleeding unspecified, unspecified chronicity, unspecified gastritis type 1 Occurrences starting 04/03/2024 until 04/03/2025 [facility] Work Phone: Comment on above: 1 Occurrences starting 04/03/2024 until 04/03/2025 End: 11-27-2025 Ferritin [Mass/volume] in Serum or Plasma FERRITIN Lab Routine 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) Stage 3 chronic kidney disease, unspecified whether stage 3a or 3b CKD (HCC) Malignant neoplasm of upper-outer quadrant of left breast in female, estrogen receptor positive (HCC) Every 6 months for 3 Occurrences starting 11/27/2024 until 11/27/2025 [facility] Comment on above: Every 6 months for 3 Occurrences startin g 11/27/2024 until 11/27/2025 End: 11-27-2025 Folate [Mass/volume] in Serum or Plasma FOLATE, SERUM Lab Routine 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) Stage 3 chronic kidney disease, unspecified whether stage 3a or 3b CKD (HCC) Malignant neoplasm of upper-outer quadrant of left breast in female, estrogen receptor positive (HCC) Every 6 months for 3 Occurrences starting 11/27/2024 until 11/27/2025 [facility] Comment on above: Every 6 months for 3 Occurrences startin g 11/27/2024 until 11/27/2025 Guidance for percutaneous biopsy of Kidney IMAGING GUIDED BIOPSY RENAL Radiology Routine 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) Ordered: 03/26/2024 [facility] Work Phone: Comment on above: Ordered: 03/26/2024 Immunofixation for Urine [facility] Immunofixation for Urine [facility] Immunofixation for Urine [facility] End: 11-27-2025 Iron and Iron binding capacity panel - Serum or Plasma IRON AND TIBC Lab Routine 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) Stage 3 chronic kidney disease, unspecified whether stage 3a or 3b CKD (HCC) Malignant neoplasm of upper-outer quadrant of left breast in female, estrogen receptor positive (HCC) Every 6 months for 3 Occurrences starting 11/27/2024 until 11/27/2025 [facility] Comment on above: Every 6 months for 3 Occurrences startin g 11/27/2024 until 11/27/2025 End: 11-27-2025 KAPPA/DIAZ,FREE,SER KAPPA/DIAZ,FREE,SER Lab Routine 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) Stage 3 chronic kidney disease, unspecified whether stage 3a or 3b CKD (HCC) Malignant neoplasm of upper-outer quadrant of left breast in female, estrogen receptor positive (HCC) Every 6 months for 3 Occurrences starting 11/27/2024 until 11/27/2025 [facility] Comment on above: Every 6 months for 3 Occurrences startin g 11/27/2024 until 11/27/2025 End: 11-27-2025 Lactate dehydrogenase [Enzymatic activity/volume] in Serum or Plasma LACTATE DEHYDROGENASE Lab Routine 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) Stage 3 chronic kidney disease, unspecified whether stage 3a or 3b CKD (HCC) Malignant neoplasm of upper-outer quadrant of left breast in female, estrogen receptor positive (HCC) Every 6 months for 3 Occurrences starting 11/27/2024 until 11/27/2025 [facility] Comment on above: Every 6 months for 3 Occurrences startin g 11/27/2024 until 11/27/2025 End: 11-27-2025 MONOCLONAL PROTEIN, SERUM (BLOOD) MONOCLONAL PROTEIN, SERUM (BLOOD) Lab Routine 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) Stage 3 chronic kidney disease, unspecified whether stage 3a or 3b CKD (HCC) Malignant neoplasm of upper-outer quadrant of left breast in female, estrogen receptor positive (HCC) Every 6 months for 3 Occurrences starting 11/27/2024 until 11/27/2025 [facility] Comment on above: Every 6 months for 3 Occurrences startin g 11/27/2024 until 11/27/2025 Parathyrin related protein [Moles/volume] in Serum or Plasma PTH RELATED PEPTIDE Lab Routine Malignant neoplasm of upper-outer quadrant of left breast in female, estrogen receptor positive (HCC) Hypercalcemia 04/30/2023 3:55 PM EDT [facility] Work Phone: Patient Education [facility] Work Phone: Patient referral [facility] Work Phone: End: 11-27-2025 Phosphate [Mass/volume] in Serum or Plasma PHOSPHORUS INORGANIC Lab Routine 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) Stage 3 chronic kidney disease, unspecified whether stage 3a or 3b CKD (HCC) Malignant neoplasm of upper-outer quadrant of left breast in female, estrogen receptor positive (HCC) Every 6 months for 3 Occurrences starting 11/27/2024 until 11/27/2025 [facility] Comment on above: Every 6 months for 3 Occurrences startin g 11/27/2024 until 11/27/2025 End: 11-27-2025 PROTEIN ELECTROPHORESIS SERUM W/INTERP PROTEIN ELECTROPHORESIS SERUM W/INTERP Lab Routine 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) Stage 3 chronic kidney disease, unspecified whether stage 3a or 3b CKD (HCC) Malignant neoplasm of upper-outer quadrant of left breast in female, estrogen receptor positive (HCC) Every 6 months for 3 Occurrences starting 11/27/2024 until 11/27/2025 [facility] Comment on above: Every 6 months for 3 Occurrences startin g 11/27/2024 until 11/27/2025 Renal function 1999 panel - Serum or Plasma [facility] Renal function 1999 panel - Serum or Plasma [facility] Renal function 1999 panel - Serum or Plasma [facility] Renal function 1999 panel - Serum or Plasma [facility] End: 11-27-2025 Urate [Mass/volume] in Serum or Plasma URIC ACID Lab Routine 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) Stage 3 chronic kidney disease, unspecified whether stage 3a or 3b CKD (HCC) Malignant neoplasm of upper-outer quadrant of left breast in female, estrogen receptor positive (HCC) Every 6 months for 3 Occurrences starting 11/27/2024 until 11/27/2025 [facility] Comment on above: Every 6 months for 3 Occurrences startin g 11/27/2024 until 11/27/2025 [facility] Immunizations Immunization Date Immunization Notes Care Provider Fa cili 07-11-2022 influenza, high dose seasonal, preservative-free Zuleyka Srivastava RN [facility] 07-11-2022 pneumococcal polysaccharide vaccine, 23 valent Zuleyka Srivastava RN [facility] 07-11-2022 influenza virus vacc ine, unspecified formulation Sandeep Lenz MD Work Phone: [facility] 07-07-2021 influenza, high-dose , quadrivalent vaccine (FLUZONE HIGH DOSE QUADRIVALENT) Sandeep Lenz MD Work Phone: [facility] 07-07-2021 unknown vaccine or i mmune globulin Zuleyka Srivastava RN [facility] 06-12-2021 influenza, high dose seasonal, preservative-free Zuleyka Srivastava RN [facility] 06-22-2020 influenza, high dose seasonal, preservative-free Sandeep Lenz MD Work Phone: [facility] 06-15-2020 Seasonal trivalent influenza vaccine, adjuvanted, preservative free Sandeep Lenz MD Work Phone: [facility] 06-17-2018 influenza, high dose seasonal, preservative-free Sandeep Lenz MD Work Phone: [facility] 06-17-2018 pneumococcal conjuga te vaccine, 13 valent Sandeep Lenz MD Work Phone: [facility] 07-09-2017 influenza, high dose seasonal, preservative-free Sandeep Lenz MD Work Phone: [facility] 07-09-2017 pneumococcal conjuga te vaccine, 13 orville Lenz MD Work Phone: [facility] Payers Date Payer Category Payer Self-pay [id number] 2024 Unknown [id number] 2014 Private Health Insurance Oh mber [id number] 2014 Unknown MEDICA RE SUPPLEMENT [id number] 2014-Present [phone] [address] [address] [place] [address] Indemnity [id number] 2014 Unknown [id number]. [id number] 2009 Medicare MEDICARE MEDICAR E A AND B [id number] 2009-Present [phone] [place] [address] Medicare [id number] 2009 Medicare [id number] 1959 Medicare [id number] 1959 Unknown [id number] 1959 Unknown [id number] 1944 Unknown [id number] 2.16.840.1.768000.3.579. 2.647 1944 Unknown [id number] 2.16.840.1.840431.3.579. 2.732 1944 Unknown [id number] 2.16.840.1.443899.3.579. 2.593 1944 Unknown [id number] 2.16.840.1.637853.3.579. 2.593 1944 Unknown [id number] 2.16.840.1.949514.3.579. 2.593 1944 Unknown [id number] 2.16.840.1.818122.3.579. 2.593 1944 Unknown [id number] 2.16.840.1.452512.3.579. 2.593 1944 Unknown [id number] 2.16.840.1.510793.3.579. 2.593 1944 Unknown [id number] 2.16.840.1.188326.3.579. 2.593 1944 Unknown [id number] 2.16.840.1.539108.3.579. 2.593 1944 Unknown [id number] 2.16.840.1.014899.3.579. 2.593 1944 Unknown [id number] 2.16.840.1.907479.3.579. 2.593 1944 Unknown [id number] 2.16.840.1.715551.3.579. 2.593 1944 Unknown [id number] 2.16.840.1.808883.3.579. 2.593 1944 Unknown [id number] 2.16.840.1.949297.3.579. 2.593 1944 Unknown [id number] 2.16.840.1.232880.3.579. 2.593 1944 Unknown [id number] 2.16.840.1.178189.3.579. 2.593 1944 Unknown [id number] 2.16.840.1.053377.3.579. 2.593 1944 Unknown [id number] 2.16.840.1.082303.3.579. 2.593 1944 Unknown [id number] 2.16.840.1.180612.3.579. 2.593 1944 Unknown [id number] 2.16.840.1.384825.3.579. 2.593 1944 Unknown [id number] 2.16.840.1.079735.3.579. 2.593 1944 Unknown [id number] 2.16.840.1.208927.3.579. 2.593 1944 Unknown [id number] 2.16.840.1.341504.3.579. 2.593 1944 Unknown [id number] 2.16.840.1.662264.3.579. 2.593 1944 Unknown [id number] 2.16.840.1.038292.3.579. 2.1259 Medicare [id number] Unknown [id number] 2.16.840.1.547446.3.579. 2.531 Unknown [id number] 2.16.840.1.709499.3.579. 2.531 Social History Date Type Detail Facility Start: 11-10-2021 End: 05-26-2024 Tobacco smoking status NHIS Never smoked tobacco (finding) [facility] Start: 1945 Sex Assigned At Female F [facility] Start: 06-12-2018 End: 04-29-2023 Tobacco use and exposure Smokeless tobacco non-user [facility] Start: 01-08-2022 End: 10-19-2024 Alcohol intake Current drinker of alcohol (finding) [facility] Start: 06-12-2018 History SDOH Alcohol Comment very rare [facility] Start: 1945 Sex Assigned At Not on file C [facility] Start: 12-29-2021 End: 01-08-2022 Exposure to SARS-CoV-2 (event) Not sure [facility] Start: 04-29-2023 End: 03-24-2024 Sex Assigned At [facility] Tobacco smoking status WIIS Tobacco smoking consumption unknown [facility] Start: 04-29-2023 End: 03-24-2024 History of Social function [facility] Adult Depression Screening Assessment 0 [facility] Start: 12-31-2024 Sex Female (finding) [facility] NEGATED: Highlighted rowStart: NINF History of tobacco use Passive smoker [facility] Goals Date Patient Goal Desired Activity /State Functional Status Date Assessment Result Facility 04-17-2024 Are you deaf, or do you have serious difficulty hearing No 04/17/2024 1:29 PM Cheyenne Rehman RN No [facility] 04-17-2024 Are you blind, or do you have serious difficulty seeing, even when wearing glasses No 04/17/2024 1:29 PM Cheyenne Rehman RN No [facility] 04-17-2024 Do you have serious difficulty walking or climbing stairs No 04/17/2024 1:29 PM Cheyenne Rehman RN No [facility] 04-17-2024 Do you have difficul ty dressing or bathing No 04/17/2024 1:29 PM Cheyenne Rehman RN No [facility] 04-17-2024 Because of a physica l, mental, or emotional condition, do you have difficulty doing errands alone such as visiting a physician's office or shopping No 04/17/2024 1:29 PM EDT Cheyenne Ram RN No [facility] 11-09-2021 Functional status Patient at [facility] Work Phone: Mental Status Date Assessment Result Facility 04-17-2024 Because of a physica l, mental, or emotional condition, do you have serious difficulty concentrating, remembering, or making decisions No 04/17/2024 1:29 PM EDT Cheyenne Ram RN No [facility] 11-09-2021 Cognitive function Cognitive Sta tus Patient at [facility] Work Phone: Clinical Notes 09-16-2020 to 06-14-2025 Note Date & Type Note Facility 06-14-2025 Note HNO ID: [id number] Author: SANDEEP LENZ MD Service: ? 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 CBC remains stable. Calcium remains WNL. Will repeat labs in 3 months and then as long as everything remains stable, will resume either q6m or annual follow-up. SUMMARIZED PLAN OF CARE: Mammograms in 6 months Labs in 6 months RTC 1 week after labs Exam same day AI Assisted Plan: 1. 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 - Continue routine monitoring. 3. Malignant neoplasm of upper-outer quadrant of left breast in female, estrogen receptor positive (HCC) (C50.412) 4. Cancer of breast, intraductal, left (D05.12) 5. 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, estrogen receptor positive (HCC) (C50.612) 6. Personal history of malignant neoplasm of breast (Z85.3) History of left breast cancer, s/p lumpectomy on 06/05/2018 and completed radiation by end of 2017; on Arimidex until November 2023. Tumor markers are normal and recent mammogram was normal. - Continue annual follow-up for a total of 10 years post-treatment. - Next follow-up after next mammogram in November; will include physical exam at that time. - Educated patient on importance of both mammography and clinical breast exams. 7. Breast screening (Z12.39) 8. Encounter for screening mammogram for malignant neoplasm of breast (Z12.31) Last mammogram was on 08/31/2023; next mammogram is due after patient returns from [place] in November. - Next mammogram to be scheduled after patient returns from [place] in November. 9. Stage 3 chronic kidney disease, unspecified whether stage 3a or 3b CKD (HCC) (N18.30) Reviewed nephrology notes; uric acid and LDH are elevated. - Continue routine monitoring. 10. Type 2 diabetes mellitus with diabetic polyneuropathy, unspecified whether intermediate teacher insulin use (HCC) (E11.42) 11. Type 2 diabetes mellitus without complication, without long-term current use of insulin (HCC) (E11.9) Recent blood glucose readings have been elevated, with a high of 283 mg/dL on 02/29/2024; patient reports typical fasting glucose readings under 120 mg/dL. - Advised patient to check blood glucose three times daily for one week and report results to PCP, Dr. Sharpe. - Educated patient on the importance of more frequent glucose monitoring and follow-up with PCP for diabetes management. CASE HISTORY: Reverse Chronological Order 08/31/2024 - Bilateral Screening Mammogram: No significant suspicious finding. Scattered benign-appearing calcifications are present. 07/17/2024 - CBC: 12.3 > 13.0 / 39.9 < 306, eGFR: 26, Creatinine: 1.71 [place]: 61.0, Lambda: 23.4, K/L Ratio: 2.61 IgA: 180, Ig, IgM: 382 M-protein concentration: 0.4 05/26/2024 - EGD: Dr. Amanda Contreras at [facility] A. Polyp, stomach, biopsy: - Hyperplastic polyp B. Stomach, biopsy: - Reactive/chemical gastropathy with hyperplastic changes - H. Pylori immunostain is negative for H. Pylori organisms 04/16/2024 - A. Kidney, Left, Biopsy: - Focal global glomerulosclerosis, mild. See comment. - Tubular atrophy and interstitial fibrosis, mild. - Arteriosclerosis, moderate, and arteriolosclerosis, moderate to severe. Comment: Immunofluorescence is essentially negative, providing evidence against active immune complex mediated glomerular disease as well as against dysproteinemia related renal disease. A total of 16 glomeruli are sampled, 4 of which are globally sclerotic, in a background of mild tubulointerstitial fibrosis. Evidenc (more content not included)... [facility] 01-25-2025 [facility] Subjective Andrew Barros is a 79 y.o. year old female patient being seen for 6 mo follow up with ECHO. Patient states she has been feeling fine. Patient states her kidney Dr. Sharpe changed her medication Lasix to 40 mg every day due to ankle swelling. Patient denies chest pain, SOB, heart burn bleeding/bruising/discoloration.or dizziness/lightheadedness. Patient states she feel occasional palpitations, fatigue. Patient Active Problem List Diagnosis Congestive heart [...] stage Proteinuria Pulmonary embolus (CMS/HCC) Secondary hyperparathyroidism Sepsis (CMS/HCC) Hyperuricemia Monoclonal gammopathy of unknown significance (MGUS) Status post biopsy of kidney Family History Problem Relation Name Age of Onset Coronary artery disease Mother Coronary artery disease Father Coronary artery disease Sister Coronary artery disease Brother Social History Tobacco Use Smoking status: Never Smokeless tobacco: Never Substance Use Topics Alcohol use: Not Currently Drug use: Never HPI Andrew is seen in follow-up. She is a 79-year-old woman with prior history of hypertension, paroxysmal [...] February 2023 she was admitted to the [facility] emergency room with epistaxis. She [...] Flagyl. Creatinine improved from 2 to 1.44. Today she reports that she has been doing relatively very well. She reports that she has no shortness of breath. She has no chest pain. She has bilateral lower extremity swelling. She has occasional palpitations. Her furosemide was increased to 40 mg daily due to lower extremity swelling. Review of Systems Constitutional: Positive for malaise/fatigue. Cardiovascular: Positive for leg swelling (minimal) and palpitations. Musculoskeletal: Negative for falls. Gastrointestinal: Negative for diarrhea and dysphagia. Neurological: Negative for light-headedness and loss of balance. All other systems reviewed and are negative. Objective Visit Vitals BP 135/67 (BP Location: Left arm, Patient Position: Sitting) Pulse 56 Ht 1.651 m (5' 5 ) Wt 68.5 kg (151 lb) SpO2 96% BMI 25.13 kg/m??? Smoking Status Never BSA 1.77 m??? Physical Exam Constitutional: Appearance: She is well-developed. She is not ill-appearing. Comments: Thin appearing HENT: Head: Normocephalic and atraumatic. Nose: Nose normal. Eyes: G (more content not included)... [facility] 12-31-2024 Evaluation note Diagnosis Onset Date Resolution Anemia of renal disease acute A pril 2024 3:41pm CKD (chronic kidney disease) stage 4, GFR 15-29 ml/min acute December 31, 2024 3:41pm Hyperlipidemia acute December 3:41pm Hypertensive chronic kidney disease with stage 1 through stage 4 chronic ki acute December 31, 2024 3:41pm Hyperuricemia acute December 31, 2024 3:41pm Proteinuria acute December 31, 2 025 3:41pm Secondary hyperparathyroidism acute December 31, 2024 3:41pm Type 2 diabetes mellitus with diabetic chronic kidney disease acute December 31, 2024 3:41pm Anemia of renal disease acute J rony2024 9:56am CKD (chronic kidney disease) stage 4, GFR 15-29 ml/min acute March 25, 2025 9:56am Gout acute March 25, 2025 9:56am Hyperlipidemia acute March 25, 2025 9:56am Hypertensive chronic kidney disease with stage 1 through stage 4 chronic ki acute March 25, 2025 9:56am MGUS (monoclonal gammopathy of unknown significance) acute March 9:56am Proteinuria acute March 25 9:56am Secondary hyperparathyroidism acute March 25 9:56am Type 2 diabetes mellitus with diabetic chronic kidney disease acute March 25, 2025 9:56am [facility] Work Phone: [phone]) 693-267303-07-2025 Instructions* Patient Instructions* Sandeep Lenz MD - 11/27/2024 11:44 AM EST RTC 6 months Exam same day Labs 1 week before [facility] History of Present illness Narrative* Sandeep Lenz MD - 11/27/2024 11:20 AM EST Images from the original note were not included. NAME: PapoAndrew CLINIC NO.: [id number] DATE OF SERVICE: November 27, 2024 (Eduardo) Some elements in this clinic note that are critical to medical decision making have been carefully reviewed and included from a prior clinic note dated: October 19, 2024 (Eduardo) Referring Provider: Eduardo Sharpe Additional Clinicians involved in Andrew Barros's care: DIAGNOSIS: History of Breast Cancer ASSESSMENT: 79 year old woman with Left breast upper outer quadrant, invasive ductal carcinoma, ER postive, [place] positive, 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 CBC remains stable. Calcium remains WNL. Will repeat labs in 3 months and then as long as everything remains stable, will resume either q6m or annual follow-up. PLAN: RTC 6 months Exam same day Labs 1 week before HPI: CASE HISTORY: Reverse Chronological Order 08/31/2024 - Bilateral Screening Mammogram: No significant suspicious finding. Scattered benign-appearing calcifications are present. 07/17/2024 - CBC: 12.3 > 13.0 / 39.9 < 306, eGFR: 26, Creatinine: 1.71 [place]: 61.0, Lambda: 23.4, K/L Ratio: 2.61 IgA: 180, Ig, IgM: 382 M-protein concentration: 0.4 05/26/2024 - EGD: Dr. Amanda Contreras at [facility] A. Polyp, stomach, biopsy: - Hyperplastic polyp B. Stomach, biopsy: - Reactive/chemical gastropathy with hyperplastic changes - H. Pylori immunostain is negative for H. Pylori organisms 04/16/2024 - A. Kidney, Left, Biopsy: - Focal global glomerulosclerosis, mild. See comment. - Tubular atrophy and interstitial fibrosis, mild. - Arteriosclerosis, moderate, and arteriolosclerosis, moderate to severe. Comment: Immunofluorescence is essentially negative, providing evidence against active [...] be contributing to the patient's renal presentation. 03/20/2024 - PET/CT: PET negative for lytic lesions. Notes distal gastric uptake. 02/24/2024 - CBC: 9.73 > 13.6 / 42.2 < 285, eGFR: 31, Creatinine: 1.67 [place]: 54.7, Lambda: 23.7, K/L Ratio: 2.31 IgA: 302, Ig, IgM: 426 M-protein concentration: 0.53 08/28/2023 - Bilateral Mammogram Diagnostic category 2 Benign 05/02/2023 - Bone Scan: Negative for osseous mets. 11/14/2021 - Had intracranial hemorrhage with intracerebral hematoma in the right tempora lobe due to HTN and warfarin. 04/24/2021 - DEXA scan World Health Organization classification: Normal-low fracture risk. 01/04/2021 - Mammograms at [facility] Bi-Rads 2 benign. 09/26/2018-11/25/2023 - Arimidex 09/10/2018 - Completed radiation 06/05/2018 - L breast lumpectomy and SNB Updated Visit, November 27, 2024: Swelling in bilateral legs from CHF managed by Cardiology. Otherwise doing well. Daughter Janki is with her. Prefers to defer breast exam today. Updated Visit, October 19, 2024: Andrew returns with her son, Frantz. Results of today's labs are pending. 08/2024's screening mammogram revealed no significant suspicious findings, there are benign-appearing calcifications present. Updated Visit, July 22, 2024: Andrew returns with Janki to review recent labs. M-spike and IgG are stable overall from my perspective - no indications for a BMBx at this time. Kidney and stomach biopsies were negative for malignancy. Updated Visit, March 24, 2024: Virtual Visit [...] found to have an M-spike by her cash surrender calculator, Dr. Rojo. We discussed potential diagnoses and [...] PERFORMANCE STATUS: 0 PHYSICAL EXAMINATION: Vitals: BP 139/76 Pulse 64 Temp 97.8 Resp 16 Wt 150 lb 12.7 oz (68.4kg) SpO2 97% Body surface area is 1.74 meters squared. Exam limited to gross visualization [...] or petechiae. ____ ALLERGIES: ALLERGIES Allergen Reactions Ofggskt-Irm-Eoq Red* Unknown Other reaction(s): AOF MEDICATIONS: glimepiride (AMARYL) 2 mg tablet TAKE 1 TABLET BY MOUTH EVERY DAY WITH BREAKFAST OR THE FIRST MAIN MEAL OF THE DAY Lactobacillus acidophilus (PROBIOTIC ORAL) Take by mouth. anastrozole (ARIMIDEX) 1 mg tablet TAKE 1 TABLET BY MOUTH EVERY DAY doxazosin (CARDURA) 4 mg tablet Take 4 mg by mouth daily at bedtime. Takes 2mg in morning then 4mg at night ferrous sulfate 325 mg (65 mg iron) tablet Take 325 mg by mouth once daily. amLODIPine (NORVASC) 2.5 mg tablet Take 5 mg by mouth twice daily. propafenone SR (RYTHMOL SR) 325 mg 12 hr capsule Take 325 mg by mouth q 12 HR. potassium chloride (K-TAB) 10 mEq tablet omeprazole (PRILOSEC) 40 mg capsule Take 40 mg by mouth once daily. calcium-cholecalciferol, D3, (OSCAL+D 250) 250-125 mg-unit per tablet Take 1 tablet by mouth twice daily. (Patient not taking: Reported on 07/22/2024) ezetimibe (ZETIA) 10 mg tablet Take 10 mg by mouth once daily. carvedilol (COREG) 25 mg tablet Take 25 mg by mouth as directed. Takes 1 1/2 tablet 2x a day furosemide (LASIX) 40 mg tablet Take 40 mg by mouth once daily. Alternates with 20mg LABORATORY VALUES: WBC (k/uL) Date Value 11/27/2024 9.53 RBC (m/uL) Date Value 11/27/2024 4.17 Hemoglobin (g/dL) Date Value 11/27/2024 12.6 Hematocrit (%) Date Value 11/27/2024 38.4 MCV (fL) Date Value 11/27/2024 92.1 MCH (pg) Date Value 11/27/2024 30.2 MCHC (g/dL) Date Value 11/27/2024 32.8 RDW-CV (%) Date Value 11/27/2024 13.0 Platelet Count (k/uL) Date Value 11/27/2024 259 MPV (fL) Date Value 11/27/2024 10.5 Glucose (mg/dL) Date Value 11/27/2024 159 (H) BUN (mg/dL) Date Value 11/27/2024 28 (H) Creatinine (mg/dL) Date Value 11/27/2024 1.61 (H) Sodium (mmol/L) Date Value 11/27/2024 142 Potassium (mmol/L) Date Value 11/27/2024 4.8 Chloride (mmol/L) Date Value 11/27/2024 105 CO2 (mmol/L) Date Value 11/27/2024 27 Protein, Total (g/dL) Date Value 11/27/2024 7.1 11/27/2024 7.5 Albumin (g/dL) Date Value 11/27/2024 4.0 Calcium, Total (mg/dL) Date Value 11/27/2024 9.6 Alkaline Phosphatase (U/L) Date Value 11/27/2024 103 Bilirubin, Total (mg/dL) Date Value 11/27/2024 0.4 AST (U/L) Date Value 11/27/2024 15 ALT (U/L) Date Value 11/27/2024 9 DIAGNOSIS: (C50.412, Z17.0) Malignant neoplasm of upper-outer quadrant of left breast in female, estrogen receptor positive (HCC) (primary encounter diagnosis) Plan: B2 MICROGLOBULIN, COMPLETE BLOOD COUNT AND DIFFERENTIAL, COMPREHENSIVE METABOLIC PANEL, LACTATE DEHYDROGENASE, PHOSPHORUS INORGANIC, PROTEIN ELECTROPHORESIS SERUM W/INTERP, MONOCLONAL PROTEIN, SERUM (BLOOD), URIC ACID, CALCIUM, IONIZED, KAPPA/DIAZ,FREE,SER, IRON AND TIBC, FERRITIN, VITAMIN B12, FOLATE, SERUM, CA 15-3 BLD (D47.2) MGUS (monoclonal gammopathy of unknown significance) Plan: B2 MICROGLOBULIN, COMPLETE BLOOD COUNT AND DIFFERENTIAL, COMPREHENSIVE METABOLIC PANEL, LACTATE DEHYDROGENASE, PHOSPHORUS INORGANIC, PROTEIN ELECTROPHORESIS SERUM W/INTERP, MONOCLONAL PROTEIN, SERUM (BLOOD), URIC ACID, CALCIUM, IONIZED, KAPPA/DIAZ,FREE,SER, IRON AND TIBC, FERRITIN, VITAMIN B12, FOLATE, SERUM, CA 15-3 BLD (D47.2, N29) Monoclonal gammopathy of renal significance (MGRS) Plan: B2 MICROGLOBULIN, COMPLETE BLOOD COUNT AND DIFFERENTIAL, COMPREHENSIVE METABOLIC PANEL, LACTATE DEHYDROGENASE, PHOSPHORUS INORGANIC, PROTEIN ELECTROPHORESIS SERUM W/INTERP, MONOCLONAL PROTEIN, SERUM (BLOOD), URIC ACID, CALCIUM, IONIZED, KAPPA/DIAZ,FREE,SER, IRON AND TIBC, FERRITIN, VITAMIN B12, FOLATE, SERUM, CA 15-3 BLD (N18.30) Stage 3 chronic kidney disease, unspecified whether stage 3a or 3b CKD (HCC) Plan: B2 MICROGLOBULIN, COMPLETE BLOOD COUNT AND DIFFERENTIAL, COMPREHENSIVE METABOLIC PANEL, LACTATE DEHYDROGENASE, PHOSPHORUS INORGANIC, PROTEIN ELECTROPHORESIS SERUM W/INTERP, MONOCLONAL PROTEIN, SERUM (BLOOD), URIC ACID, CALCIUM, IONIZED, KAPPA/DIAZ,FREE,SER, IRON AND TIBC, FERRITIN, VITAMIN B12, FOLATE, SERUM, CA 15-3 BLD PAST MEDICAL HISTORY Diagnosis [...] on file. I spent a total of 20 minutes [...] CPE Hematology and Oncology Services Provided at: [facility], [place], [place] CC: MD Eamon Gaviria documented in this encounterH[facility] NoteHNO ID: [id number] Author: SANDEEP LENZ MD Service: ? Author Type: Physician Type: Progress Notes Filed: 11/27/2024 18:11 Note Text: NAME: PapoAndrew CLINIC NO.: [id number] DATE OF SERVICE: November 27, 2024 (Eduardo) Some elements in this clinic note that are critical to medical decision making have been carefully reviewed and included from a prior clinic note dated: October 19, 2024 (Eduardo) Referring Provider: Eduardo Sharpe Additional Clinicians involved in Andrew Barros's care: DIAGNOSIS: History of Breast Cancer ASSESSMENT: 79 year old woman with Left breast upper outer quadrant, invasive ductal carcinoma, ER postive, [place] positive, 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 CBC remains stable. Calcium remains WNL. Will repeat labs in 3 months and then as long as everything remains stable, will resume either q6m or annual follow-up. PLAN: RTC 6 months Exam same day Labs 1 week before HPI: CASE HISTORY: Reverse Chronological Order 08/31/2024 - Bilateral Screening Mammogram: No significant suspicious finding. Scattered benign-appearing calcifications are present. 07/17/2024 - CBC: 12.3 > 13.0 / 39.9 < 306, eGFR: 26, Creatinine: 1.71 [place]: 61.0, Lambda: 23.4, K/L Ratio: 2.61 IgA: 180, Ig, IgM: 382 M-protein concentration: 0.4 05/26/2024 - EGD: Dr. Amanda Contreras at [facility] [place] A. Polyp, stomach, biopsy: - Hyperplastic polyp B. Stomach, biopsy: - Reactive/chemical gastropathy with hyperplastic changes - H. Pylori immunostain is negative for H. Pylori organisms 04/16/2024 - A. Kidney, Left, Biopsy: - Focal global glomerulosclerosis, mild. See comment. - Tubular atrophy and interstitial fibrosis, mild. - Arteriosclerosis, moderate, and arteriolosclerosis, moderate to severe. Comment: Immunofluorescence is essentially negative, providing evidence against active [...] be contributing to the patient's renal presentation. 03/20/2024 - PET/CT: PET negative for lytic lesions. Notes distal gastric uptake. 02/24/2024 - CBC: 9.73 > 13.6 / 42.2 < 285, eGFR: 31, Creatinine: 1.67 [place]: 54.7, Lambda: 23.7, K/L Ratio: 2.31 IgA: 302, Ig, IgM: 426 M-protein concentration: 0.53 08/28/2023 - Bilateral Mammogram Diagnostic category 2 Benign 05/02/2023 - Bone Scan: Negative for osseous mets. 11/14/2021 - Had intracranial hemorrhage with intracerebral hematoma in the right tempora lobe due to HTN and warfarin. 04/24/2021 - DEXA scan World Health Organization classification: Normal-low fracture risk. 01/04/2021 - Mammograms at [facility] Bi-Rads 2 benign. 09/26/2018-11/25/2023 - Arimidex 09/10/2018 - Completed radiation 06/05/2018 - L breast lumpectomy and SNB Updated Visit, November 27, 2024: Swelling in bilateral legs from CHF managed by Cardiology. Otherwise doing well. Daughter Janki is with her. Prefers to defer breast exam today. Updated Visit, October 19, 2024: Andrew returns with her son, Frantz. Results of today's labs are pending. 08/2024's screening mammogram revealed no significant suspicious findings, there are benign-appearing calcifications present. Updated Visit, July 22, 2024: Andrew returns with Janki to review recent labs. M-spike and IgG are stable overall from my perspective - no indications for a BMBx at this time. Kidney and stomach biopsies were negative for malignancy. Updated Visit, March 24, 2024: Virtual Visit [...] Presents with daughter Sugey and was found (more content not included)... [facility]01-27-2025 Instructions* Patient Instructions* Karla Marroquin - 10/19/2024 11:22 AM EST Triage to call with today's lab results RTC in November 2024 as scheduled Labs same day Exam same day documented in this encounterH[facility]01-27[facility] History of Present illness Narrative* Sandeep Lenz MD - 10/19/2024 11:00 AM EST Images from the original note were not included. NAME: Andrew Barros CLINIC NO.: [id number] DATE OF SERVICE: October 19, 2024 (Abbatsheva) Some elements in this clinic note that are critical to medical decision making have been carefully reviewed and included from a prior clinic note dated: July 22, 2024 (Eduardo) Referring Provider: Eduardo Sharpe Additional Clinicians involved in Andrew Barros's care: DIAGNOSIS: History of Breast Cancer ASSESSMENT: 79 year old woman with Left breast upper outer quadrant, invasive ductal carcinoma, ER postive, [place] positive, 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 CBC remains stable. Calcium remains WNL. Will repeat labs in 3 months and then as long as everything remains stable, will resume either q6m or annual follow-up. PLAN: Triage to call with today's lab results RTC in November 2024 as scheduled Labs same day Exam same day HPI: CASE HISTORY: Reverse Chronological Order 08/31/2024 - Bilateral Screening Mammogram: No significant suspicious finding. Scattered benign-appearing calcifications are present. 07/17/2024 - CBC: 12.3 > 13.0 / 39.9 < 306, eGFR: 26, Creatinine: 1.71 [place]: 61.0, Lambda: 23.4, K/L Ratio: 2.61 IgA: 180, Ig, IgM: 382 M-protein concentration: 0.4 05/26/2024 - EGD: Dr. Amanda Contreras at [facility] A. Polyp, stomach, biopsy: - Hyperplastic polyp B. Stomach, biopsy: - Reactive/chemical gastropathy with hyperplastic changes - H. Pylori immunostain is negative for H. Pylori organisms 04/16/2024 - A. Kidney, Left, Biopsy: - Focal global glomerulosclerosis, mild. See comment. - Tubular atrophy and interstitial fibrosis, mild. - Arteriosclerosis, moderate, and arteriolosclerosis, moderate to severe. Comment: Immunofluorescence is essentially negative, providing evidence against active [...] be contributing to the patient's renal presentation. 03/20/2024 - PET/CT: PET negative for lytic lesions. Notes distal gastric uptake. 02/24/2024 - CBC: 9.73 > 13.6 / 42.2 < 285, eGFR: 31, Creatinine: 1.67 [place]: 54.7, Lambda: 23.7, K/L Ratio: 2.31 IgA: 302, Ig, IgM: 426 M-protein concentration: 0.53 08/28/2023 - Bilateral Mammogram Diagnostic category 2 Benign 05/02/2023 - Bone Scan: Negative for osseous mets. 11/14/2021 - Had intracranial hemorrhage with intracerebral hematoma in the right tempora lobe due to HTN and warfarin. 04/24/2021 - DEXA scan World Health Organization classification: Normal-low fracture risk. 01/04/2021 - Mammograms at [facility] Bi-Rads 2 benign. 09/26/2018-11/25/2023 - Arimidex 09/10/2018 - Completed radiation 06/05/2018 - L breast lumpectomy and SNB Updated Visit, October 19, 2024: Andrew returns with her son, Frantz. Results of today's labs are pending. 08/2024's screening mammogram revealed no significant suspicious findings, there are benign-appearing calcifications present. Updated Visit, July 22, 2024: Andrew returns with Janki to review recent labs. M-spike and IgG are stable overall from my perspective - no indications for a BMBx at this time. Kidney and stomach biopsies were negative for malignancy. Updated Visit, March 24, 2024: Virtual Visit [...] found to have an M-spike by her cash surrender calculator, Dr. Rojo. We discussed potential diagnoses and [...] PERFORMANCE STATUS: 0 PHYSICAL EXAMINATION: Vitals: BP 152/75 Pulse 71 Temp (Src) 97.4 (Temporal) Resp 16 Ht 5' 3.071 (1.60m) Wt 151lb 3.8 oz (68.6kg) SpO2 98% BMI 26.73 kg/(m^2). Body surface area is 1.75 meters squared. Exam limited to gross visualization [...] or petechiae. ____ ALLERGIES: ALLERGIES Allergen Reactions Djoceva-Xbi-Zbd Red* Unknown Other reaction(s): AOF MEDICATIONS: glimepiride (AMARYL) 2 mg tablet TAKE 1 TABLET BY MOUTH EVERY DAY WITH BREAKFAST OR THE FIRST MAIN MEAL OF THE DAY Lactobacillus acidophilus (PROBIOTIC ORAL) Take by mouth. anastrozole (ARIMIDEX) 1 mg tablet TAKE 1 TABLET BY MOUTH EVERY DAY doxazosin (CARDURA) 4 mg tablet Take 4 mg by mouth daily at bedtime. Takes 2mg in morning then 4mg at night ferrous sulfate 325 mg (65 mg iron) tablet Take 325 mg by mouth once daily. amLODIPine (NORVASC) 2.5 mg tablet Take 5 mg by mouth twice daily. propafenone SR (RYTHMOL SR) 325 mg 12 hr capsule Take 325 mg by mouth q 12 HR. potassium chloride (K-TAB) 10 mEq tablet omeprazole (PRILOSEC) 40 mg capsule Take 40 mg by mouth once daily. ezetimibe (ZETIA) 10 mg tablet Take 10 mg by mouth once daily. carvedilol (COREG) 25 mg tablet Take 25 mg by mouth as directed. Takes 1 1/2 tablet 2x a day furosemide (LASIX) 40 mg tablet Take 40 mg by mouth once daily. Alternates with 20mg calcium-cholecalciferol, D3, (OSCAL+D 250) 250-125 mg-unit per tablet Take 1 tablet by mouth twice daily. (Patient not taking: Reported on 07/22/2024) LABORATORY VALUES: WBC (k/uL) Date Value 10/19/2024 10.21 RBC (m/uL) Date Value 10/19/2024 4.12 Hemoglobin (g/dL) Date Value 10/19/2024 12.4 Hematocrit (%) Date Value 10/19/2024 38.7 MCV (fL) Date Value 10/19/2024 93.9 MCH (pg) Date Value 10/19/2024 30.1 MCHC (g/dL) Date Value 10/19/2024 32.0 RDW-CV (%) Date Value 10/19/2024 12.7 Platelet Count (k/uL) Date Value 10/19/2024 271 MPV (fL) Date Value 10/19/2024 10.0 Glucose (mg/dL) Date Value 10/19/2024 153 (H) BUN (mg/dL) Date Value 10/19/2024 37 (H) Creatinine (mg/dL) Date Value 10/19/2024 1.80 (H) Sodium (mmol/L) Date Value 10/19/2024 138 Potassium (mmol/L) Date Value 10/19/2024 4.1 Chloride (mmol/L) Date Value 10/19/2024 99 CO2 (mmol/L) Date Value 10/19/2024 27 Protein, Total (g/dL) Date Value 10/19/2024 7.4 Albumin (g/dL) Date Value 10/19/2024 4.2 Calcium, Total (mg/dL) Date Value 10/19/2024 10.2 Alkaline Phosphatase (U/L) Date Value 10/19/2024 103 Bilirubin, Total (mg/dL) Date Value 10/19/2024 0.4 AST (U/L) Date Value 10/19/2024 10 (L) ALT (U/L) Date Value 10/19/2024 11 DIAGNOSIS: (D47.2, N29) Monoclonal gammopathy of renal significance (MGRS) (primary encounter diagnosis) Plan: B2 MICROGLOBULIN, COMPLETE BLOOD COUNT AND DIFFERENTIAL, COMPREHENSIVE METABOLIC PANEL, LACTATE DEHYDROGENASE, PHOSPHORUS INORGANIC, PROTEIN ELECTROPHORESIS SERUM W/INTERP, MONOCLONAL PROTEIN, SERUM (BLOOD), URIC ACID, CALCIUM, IONIZED, KAPPA/DIAZ,FREE,SER, CA 15-3 BLD, CA 27.29 BLOOD, COMPREHENSIVE METABOLIC PANEL, COMPLETE BLOOD COUNT AND DIFFERENTIAL (D47.2) MGUS (monoclonal gammopathy of unknown significance) Plan: B2 MICROGLOBULIN, COMPLETE BLOOD COUNT AND DIFFERENTIAL, COMPREHENSIVE METABOLIC PANEL, LACTATE DEHYDROGENASE, PHOSPHORUS INORGANIC, PROTEIN ELECTROPHORESIS SERUM W/INTERP, MONOCLONAL PROTEIN, SERUM (BLOOD), URIC ACID, CALCIUM, IONIZED, KAPPA/DIAZ,FREE,SER, CA 15-3 BLD, CA 27.29 BLOOD, COMPREHENSIVE METABOLIC PANEL, COMPLETE BLOOD COUNT AND DIFFERENTIAL (N18.30) Stage 3 chronic kidney disease, unspecified whether stage 3a or 3b CKD (HCC) Plan: B2 MICROGLOBULIN, COMPLETE BLOOD COUNT AND DIFFERENTIAL, COMPREHENSIVE METABOLIC PANEL, LACTATE DEHYDROGENASE, PHOSPHORUS INORGANIC, PROTEIN ELECTROPHORESIS SERUM W/INTERP, MONOCLONAL PROTEIN, SERUM (BLOOD), URIC ACID, CALCIUM, IONIZED, KAPPA/DIAZ,FREE,SER, CA 15-3 BLD, CA 27.29 BLOOD, COMPREHENSIVE METABOLIC PANEL, COMPLETE BLOOD COUNT AND DIFFERENTIAL (C50.919, Z17.0) Malignant neoplasm of breast in female, estrogen receptor positive, unspecified laterality, unspecified site of breast (HCC) Plan: CA 15-3 BLD, CA 27.29 BLOOD, COMPREHENSIVE METABOLIC PANEL, COMPLETE BLOOD COUNT AND DIFFERENTIAL PAST MEDICAL HISTORY Diagnosis Date Atrial fibrillation [...] family history. I spent a total of 20 minutes [...] CPE Hematology and Oncology Services Provided at: [place], [place] Scribe Attestation: This note was scribed by Karla Marroquin on October 19, 2024 under the direction and supervision of Dr. Sandeep Lenz. I attest that all of the information documented is correct to the best of myknowledge. Provider Attestation: I, Sandeep Lenz MD, attest that all information documented by the above scribe is correct, and was supervised by me and under my direction. CC: MD Eamon Gaviria documented in this encounterH[facility]01-27-[facility]25 NoteHNO ID: [id number] Author: SANDEEP LENZ MD Service: ? Author Type: Physician Type: Progress Notes Filed: 10/19/2024 19:32 Note Text: NAME: Papo Andrew [facility] NO.: [id number] DATE OF SERVICE: October 19, 2024 (Eduardo) Some elements in this clinic note that are critical to medical decision making have been carefully reviewed and included from a prior clinic note dated: July 22, 2024 (Eduardo) Referring Provider: Eduardo Sharpe Additional Clinicians involved in Andrew Barros's care: DIAGNOSIS: History of Breast Cancer ASSESSMENT: 79 year old woman with Left breast upper outer quadrant, invasive ductal carcinoma, ER postive, [place] positive, 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 CBC remains stable. Calcium remains WNL. Will repeat labs in 3 months and then as long as everything remains stable, will resume either q6m or annual follow-up. PLAN: Triage to call with today's lab results RTC in November 2024 as scheduled Labs same day Exam same day HPI: CASE HISTORY: Reverse Chronological Order 08/31/2024 - Bilateral Screening Mammogram: No significant suspicious finding. Scattered benign-appearing calcifications are present. 07/17/2024 - CBC: 12.3 > 13.0 / 39.9 < 306, eGFR: 26, Creatinine: 1.71 [place]: 61.0, Lambda: 23.4, K/L Ratio: 2.61 IgA: 180, Ig, IgM: 382 M-protein concentration: 0.4 05/26/2024 - EGD: Dr. Amanda Contreras at [facility] A. Polyp, stomach, biopsy: - Hyperplastic polyp B. Stomach, biopsy: - Reactive/chemical gastropathy with hyperplastic changes - H. Pylori immunostain is negative for H. Pylori organisms 04/16/2024 - A. Kidney, Left, Biopsy: - Focal global glomerulosclerosis, mild. See comment. - Tubular atrophy and interstitial fibrosis, mild. - Arteriosclerosis, moderate, and arteriolosclerosis, moderate to severe. Comment: Immunofluorescence is essentially negative, providing evidence against active [...] be contributing to the patient's renal presentation. 03/20/2024 - PET/CT: PET negative for lytic lesions. Notes distal gastric uptake. 02/24/2024 - CBC: 9.73 > 13.6 / 42.2 < 285, eGFR: 31, Creatinine: 1.67 [place]: 54.7, Lambda: 23.7, K/L Ratio: 2.31 IgA: 302, Ig, IgM: 426 M-protein concentration: 0.53 08/28/2023 - Bilateral Mammogram Diagnostic category 2 Benign 05/02/2023 - Bone Scan: Negative for osseous mets. 11/14/2021 - Had intracranial hemorrhage with intracerebral hematoma in the right tempora lobe due to HTN and warfarin. 04/24/2021 - DEXA scan World Health Organization classification: Normal-low fracture risk. 01/04/2021 - Mammograms at [facility] Bi-Rads 2 benign. 09/26/2018-11/25/2023 - Arimidex 09/10/2018 - Completed radiation 06/05/2018 - L breast lumpectomy and SNB Updated Visit, October 19, 2024: Andrew returns with her son, Frantz. Results of today's labs are pending. 08/2024's screening mammogram revealed no significant suspicious findings, there are benign-appearing calcifications present. Updated Visit, July 22, 2024: Andrew returns with Janki to review recent labs. M-spike and IgG are stable overall from my perspective - no indications for a BMBx at this time. Kidney and stomach biopsies were negative for malignancy. Updated Visit, March 24, 2024: Virtual Visit [...] found to have an M-spike by her cash surrender calculator, Dr. Rojo. We discussed potential diagnoses and implications but will wait until (more content not included)...[facility] 08-18-2024 NoteCardiovascular Medicine [facility] SUBJECTIVE Chief Complaint Patient presents with Follow-up 6 month follow up Andrew Barros is a 78 y.o. female here for follow-up. HPI PMHx: HFpEF, paroxysmal a.fib, HTN, intracranial brain bleeding, DM type II, HLD, CKD III, mitral valve regurg After her last visit, her lasix was increased to alternating schedule of 40mg and 20mg every other day. BP at home 130s/70s before medications. She has been feeling well. Her LE swelling has been stable, R>L. She wears compression stockings during the day Denies c/o CP, dyspnea, orthopnea, PND, dizziness/LH, palpitations, syncope. Patient Active Problem List Diagnosis Congestive heart [...] embolus (CMS/HCC) Secondary hyperparathyroidism (CMS/HCC) Sepsis (CMS/HCC) Hyperuricemia Monoclonal gammopathy of unknown significance (MGUS) Status post biopsy of kidney Past Medical History: Diagnosis Date Atrial fibrillation (CMS/HCC) Heart valve disease History of intracranial hemorrhage Hypertension Family History Problem Relation Name Age of Onset Coronary artery disease Mother Coronary artery disease Father Coronary artery disease Sister Coronary artery disease Brother Social History Tobacco Use Smoking status: Never Smokeless tobacco: Never Substance Use Topics Alcohol use: Not Currently Allergies Allergen Reactions Ilugbqu-Yxw-Euu Reductase Inhibitors Other Other reaction(s): AOF Review of Systems Constitutional: Negative for chills, decreased appetite, fever, malaise/fatigue and weight gain. Cardiovascular: Positive for leg swelling. Negative for chest pain, dyspnea on exertion, irregular heartbeat, near-syncope, orthopnea, palpitations, paroxysmal nocturnal dyspnea and syncope. Hematologic/Lymphatic: Negative for bleeding problem. Does not bruise/bleed easily. OBJECTIVE Visit Vitals BP 135/76 (BP Location: Left arm, Patient Position: Sitting, BP Cuff Size: Adult) Pulse 65 Resp 11 Ht 1.651 m (5' 5 ) Wt 63.5 kg (140 lb) SpO2 97% BMI 23.30 kg/m??? Smoking Status Never BSA 1.71 m??? Medications: Current Outpatient Medications: amLODIPine (Norvasc) 5 mg tablet, Take 1 tablet (5 mg) by mouth 2 times daily., Disp: 180 tablet, Rfl: 3 anastrozole (Arimidex) 1 mg chemo tablet, anastrozole 1 mg tablet TAKE 1 TABLET BY MOUTH EVERY DAY, Disp: , Rfl: aspirin 81 mg chewable tablet, in the morning., Disp: , Rfl: carvedilol (Coreg) 25 mg tablet, Take 25 mg by mouth with breakfast and with evening meal., Disp: , Rfl: doxazosin (Cardura) 2 mg tablet, Take 1 tablet (2 mg) by mouth once daily in the morning. Take in addition to the 4 mg tablet for a total of 6 mg daily., Disp: 90 tablet, Rfl: 3 doxazosin (Cardura) 4 mg tablet, TAKE 1 TABLET BY MOUTH AT BEDTIME, Disp: 90 tablet, Rfl: 3 ergocalciferol (Vitamin D-2) 1.25 MG (68167 Units) capsule, ergocalciferol (vitamin D2) 1,250 mcg (50,000 unit) capsule TAKE 1 CAPSULE BY MOUTH ONCE A WEEK ON MONDAYS, Disp: , Rfl: ezetimibe (Zetia) 10 mg tablet, TAKE 1 TABLET BY MOUTH EVERY DAY, Disp: 90 tablet, Rfl: 3 ferrous sulfate 325 (65 Fe) MG tablet, Take 1 tablet by mouth in the morning and at bedtime., Disp: , Rfl: furosemide (Lasix) 20 mg tablet, Take 1 tablet (20 mg) by mouth every other day. Take alternating with the 40 mg every other day., Disp: 45 tablet, Rfl: 3 furosemide (Lasix) 40 mg tablet, Take 1 tablet (40 mg) by mouth every other day., Disp: 45 tablet, Rfl: 3 metFORMIN (Glucophage) 500 mg tablet, Take 500 mg by mouth in the morning and at bedtime., Disp: , Rfl: omeprazole (PriLOSEC) [address] capsule, Take 1 tablet by mouth in the morning., Disp: , Rfl: potassium chloride CR (Klor-Con) 10 mEq ER tablet, potassium chloride ER 10 mEq tablet,extended release TAKE 1 TABLET BY MOUTH EVERY DAY, Disp: , Rfl: propafenone SR (Rythmol SR) 325 mg 12 hr capsule, TAKE 1 CAPSULE BY MOUTH EVERY 12 HOURS, Disp: 180 capsule, Rfl: 3 Physical Exam Vitals reviewed. Constitutional: Appearance: Normal appearance. She is normal weight. HENT: Head: Normocephalic and atraumatic. Right Ear: External ear normal. Left Ear: External ear normal. Eyes: Ex (more content not included)...[facility]10-30-2024 Instructions* Patient Instructions* Karla Marroquin - 07/22/2024 9:47 AM EDT Labs in 3 months RTC 1 week after RTC in November 2024 as scheduled - Repeat labs - Exam same day Repeat Mammogram prior to November visit documented in this encounterH[facility]10-30-[facility] History of Present illness Narrative* Sandeep Lenz MD - 07/22/2024 9:20 AM EDT Images from the original note were not included. NAME: Andrew Barros CLINIC NO.: [id number] DATE OF SERVICE: July 22, 2024 (Eduardo) Some elements in this clinic note that are critical to medical decision making have been carefully reviewed and included from a prior clinic note dated: March 24, 2024 (Eduardo) Referring Provider: Eduardo Sharpe Additional Clinicians involved in Andrewpeter Barros's care: DIAGNOSIS: History of Breast Cancer ASSESSMENT: 78 year old woman with Left breast upper outer quadrant, invasive ductal carcinoma, ER postive, [place] positive, 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 CBC remains stable. Calcium remains WNL. Will repeat labs in 3 months and then as long as everything remains stable, will resume either q6m or annual follow-up. PLAN: Labs in 3 months RTC 1 week after RTC in November 2024 as scheduled - Repeat labs - Exam same day Repeat Mammogram prior to November visit HPI: CASE HISTORY: Reverse Chronological Order 07/17/2024 - CBC: 12.3 > 13.0 / 39.9 < 306, eGFR: 26, Creatinine: 1.71 [place]: 61.0, Lambda: 23.4, K/L Ratio: 2.61 IgA: 180, Ig, IgM: 382 M-protein concentration: 0.4 05/26/2024 - EGD: Dr. Amanda Contreras at [facility] A. Polyp, stomach, biopsy: - Hyperplastic polyp B. Stomach, biopsy: - Reactive/chemical gastropathy with hyperplastic changes - H. Pylori immunostain is negative for H. Pylori organisms 04/16/2024 - A. Kidney, Left, Biopsy: - Focal global glomerulosclerosis, mild. See comment. - Tubular atrophy and interstitial fibrosis, mild. - Arteriosclerosis, moderate, and arteriolosclerosis, moderate to severe. Comment: Immunofluorescence is essentially negative, providing evidence against active [...] be contributing to the patient's renal presentation. 03/20/2024 - PET/CT: PET negative for lytic lesions. Notes distal gastric uptake. 02/24/2024 - CBC: 9.73 > 13.6 / 42.2 < 285, eGFR: 31, Creatinine: 1.67 [place]: 54.7, Lambda: 23.7, K/L Ratio: 2.31 IgA: 302, Ig, IgM: 426 M-protein concentration: 0.53 08/28/2023 - Bilateral Mammogram Diagnostic category 2 Benign 05/02/2023 - Bone Scan: Negative for osseous mets. 11/14/2021 - Had intracranial hemorrhage with intracerebral hematoma in the right tempora lobe due to HTN and warfarin. 04/24/2021 - DEXA scan World Health Organization classification: Normal-low fracture risk. 01/04/2021 - Mammograms at [facility] Bi-Rads 2 benign. 09/26/2018-11/25/2023 - Arimidex 09/10/2018 - Completed radiation 06/05/2018 - L breast lumpectomy and SNB Updated Visit, July 22, 2024: Andrew returns with Janki to review recent labs. M-spike and IgG are stable overall from my perspective - no indications for a BMBx at this time. Kidney and stomach biopsies were negative for malignancy. Updated Visit, March 24, 2024: Virtual Visit [...] found to have an M-spike by her cash surrender calculator, Dr. Rojo. We discussed potential diagnoses and [...] PERFORMANCE STATUS: 0 PHYSICAL EXAMINATION: Vitals: BP 136/73 Pulse 68 Temp (Src) 96.9 (Temporal) Resp 16 Ht 5' 3.071 (1.60m) Wt 141lb 5 oz (64.1kg) SpO2 96% BMI 24.98 kg/(m^2). Body surface area is 1.69 meters squared. Exam limited to gross visualization [...] or petechiae. ____ ALLERGIES: ALLERGIES Allergen Reactions Xrbwtqx-Ccn-Ace Red* Unknown Other reaction(s): AOF MEDICATIONS: Lactobacillus acidophilus (PROBIOTIC ORAL) Take by mouth. doxazosin (CARDURA) 4 mg tablet Take 4 mg by mouth daily at bedtime. Takes 2mg in morning then 4mg at night ferrous sulfate 325 mg (65 mg iron) tablet Take 325 mg by mouth once daily. amLODIPine (NORVASC) 2.5 mg tablet Take 5 mg by mouth twice daily. metFORMIN (GLUCOPHAGE) 500 mg tablet Take 500 mg by mouth twice daily. propafenone SR (RYTHMOL SR) 325 mg 12 hr capsule Take 325 mg by mouth q 12 HR. potassium chloride (K-TAB) 10 mEq tablet omeprazole (PRILOSEC) 40 mg capsule Take 40 mg by mouth once daily. ezetimibe (ZETIA) 10 mg tablet Take [...] drop ophthalmic drops 1 Drop as directed. (Patient not taking: Reported on 07/22/2024) calcium-cholecalciferol, D3, (OSCAL+D 250) 250-125 mg-unit per tablet Take 1 tablet by mouth twice daily. (Patient not taking: Reported on 07/22/2024) Multivitamin capsule Take 1 capsule by mouth once daily. (Patient not taking: Reported on 11/25/2023) LABORATORY VALUES: WBC (k/uL) Date Value 04/20/2024 10.77 RBC (m/uL) Date Value 04/20/2024 3.28 (L) Hemoglobin (g/dL) Date Value 04/23/2024 10.4 (L) Hematocrit (%) Date Value 04/23/2024 31.5 (L) MCV (fL) Date Value 04/20/2024 93.6 MCH (pg) Date Value 04/20/2024 30.5 MCHC (g/dL) Date Value 04/20/2024 32.6 RDW-CV (%) Date Value 04/20/2024 12.8 Platelet Count (k/uL) Date Value 04/20/2024 280 MPV (fL) Date Value 04/20/2024 10.1 Glucose (mg/dL) Date Value 04/14/2024 181 (H) BUN (mg/dL) Date Value 04/14/2024 27 (H) Creatinine (mg/dL) Date Value 04/14/2024 1.42 (H) Sodium (mmol/L) Date Value 04/14/2024 136 Potassium (mmol/L) Date Value 04/14/2024 4.0 Chloride (mmol/L) Date Value 04/14/2024 99 CO2 (mmol/L) Date Value 04/14/2024 23 Protein, Total (g/dL) Date Value 04/14/2024 7.7 Albumin (g/dL) Date Value 04/14/2024 4.0 Calcium, Total (mg/dL) Date Value 04/14/2024 9.8 Alkaline Phosphatase (U/L) Date Value 04/14/2024 92 Bilirubin, Total (mg/dL) Date Value 04/14/2024 0.7 AST (U/L) Date Value 04/14/2024 15 ALT (U/L) Date Value 04/14/2024 11 DIAGNOSIS: (D47.2) MGUS (monoclonal gammopathy of unknown significance) (primary encounter diagnosis) Plan: B2 MICROGLOBULIN, COMPLETE BLOOD COUNT AND DIFFERENTIAL, COMPREHENSIVE METABOLIC PANEL, LACTATE DEHYDROGENASE, PHOSPHORUS INORGANIC, PROTEIN ELECTROPHORESIS SERUM W/INTERP, MONOCLONAL PROTEIN, SERUM (BLOOD), URIC ACID, CALCIUM, IONIZED, KAPPA/DIAZ,FREE,SER, SERUM VISCOSITY (N18.30) Stage 3 chronic kidney disease, unspecified whether stage 3a or 3b CKD (HCC) Plan: B2 MICROGLOBULIN, COMPLETE BLOOD COUNT AND DIFFERENTIAL, COMPREHENSIVE METABOLIC PANEL, LACTATE DEHYDROGENASE, PHOSPHORUS INORGANIC, PROTEIN ELECTROPHORESIS SERUM W/INTERP, MONOCLONAL PROTEIN, SERUM (BLOOD), URIC ACID, CALCIUM, IONIZED, KAPPA/DIAZ,FREE,SER, SERUM VISCOSITY (C50.412, Z17.0) Malignant neoplasm of upper-outer quadrant of left breast in female, estrogen receptor positive (HCC) Plan: B2 MICROGLOBULIN, COMPLETE BLOOD COUNT AND DIFFERENTIAL, COMPREHENSIVE METABOLIC PANEL, LACTATE DEHYDROGENASE, PHOSPHORUS INORGANIC, PROTEIN ELECTROPHORESIS SERUM W/INTERP, MONOCLONAL PROTEIN, SERUM (BLOOD), URIC ACID, CALCIUM, IONIZED, KAPPA/DIAZ,FREE,SER, SERUM VISCOSITY PAST MEDICAL HISTORY Diagnosis Date Atrial fibrillation [...] CPE Hematology and Oncology Services Provided at: [place], [place] Scribe Attestation: This note was scribed by Karla Marroquin on July 22, 2024 under the direction and supervision of Dr. Sandeep Lenz. I attest that all of the information documented is correct to the best of myknowledge. Provider Attestation: I, Snadeep Lenz MD, attest that all information documented by the above scribe is correct, and was supervised by me and under my direction. CC: MD Eamon Gaviria documented in this encounterH[facility]10-30-[facility]24 NoteHNO ID: [id number] Author: SANDEEP LENZ MD Service: ? Author Type: Physician Type: Progress Notes Filed: 07/22/2024 12:48 Note Text: NAME: Andrew Barros [facility] NO.: [id number] DATE OF SERVICE: July 22, 2024 (Eduardo) Some elements in this clinic note that are critical to medical decision making have been carefully reviewed and included from a prior clinic note dated: March 24, 2024 (Eduardo) Referring Provider: Eduardo Sharpe Additional Clinicians involved in Andrew Barros's care: DIAGNOSIS: History of Breast Cancer ASSESSMENT: 78 year old woman with Left breast upper outer quadrant, invasive ductal carcinoma, ER postive, [place] positive, 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 CBC remains stable. Calcium remains WNL. Will repeat labs in 3 months and then as long as everything remains stable, will resume either q6m or annual follow-up. PLAN: Labs in 3 months RTC 1 week after RTC in November 2024 as scheduled - Repeat labs - Exam same day Repeat Mammogram prior to November visit HPI: CASE HISTORY: Reverse Chronological Order 07/17/2024 - CBC: 12.3 > 13.0 / 39.9 < 306, eGFR: 26, Creatinine: 1.71 [place]: 61.0, Lambda: 23.4, K/L Ratio: 2.61 IgA: 180, Ig, IgM: 382 M-protein concentration: 0.4 05/26/2024 - EGD: Dr. Amanda Contreras at [facility] A. Polyp, stomach, biopsy: - Hyperplastic polyp B. Stomach, biopsy: - Reactive/chemical gastropathy with hyperplastic changes - H. Pylori immunostain is negative for H. Pylori organisms 04/16/2024 - A. Kidney, Left, Biopsy: - Focal global glomerulosclerosis, mild. See comment. - Tubular atrophy and interstitial fibrosis, mild. - Arteriosclerosis, moderate, and arteriolosclerosis, moderate to severe. Comment: Immunofluorescence is essentially negative, providing evidence against active [...] be contributing to the patient's renal presentation. 03/20/2024 - PET/CT: PET negative for lytic lesions. Notes distal gastric uptake. 02/24/2024 - CBC: 9.73 > 13.6 / 42.2 < 285, eGFR: 31, Creatinine: 1.67 [place]: 54.7, Lambda: 23.7, K/L Ratio: 2.31 IgA: 302, Ig, IgM: 426 M-protein concentration: 0.53 08/28/2023 - Bilateral Mammogram Diagnostic category 2 Benign 05/02/2023 - Bone Scan: Negative for osseous mets. 11/14/2021 - Had intracranial hemorrhage with intracerebral hematoma in the right tempora lobe due to HTN and warfarin. 04/24/2021 - DEXA scan World Health Organization classification: Normal-low fracture risk. 01/04/2021 - Mammograms at [facility] Bi-Rads 2 benign. 09/26/2018-11/25/2023 - Arimidex 09/10/2018 - Completed radiation 06/05/2018 - L breast lumpectomy and SNB Updated Visit, July 22, 2024: Andrew returns with Janki to review recent labs. M-spike and IgG are stable overall from my perspective - no indications for a BMBx at this time. Kidney and stomach biopsies were negative for malignancy. Updated Visit, March 24, 2024: Virtual Visit [...] found to have an M-spike by her cash surrender calculator, Dr. Rojo. We discussed potential diagnoses and [...] decline now at Stage 4 kidney failure. (more content not included)...[facility]10-30-2024 Evaluation note* Diagnosis 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 Monoclonal paraproteinemia Stage 3 chronic kidney disease, unspecified whether stage 3a or 3b CKD (HCC) Malignant neoplasm of upper-outer quadrant of left breast in female, estrogen receptor positive (HCC) documented in this encounter [facility]09[facility] Tele[facility] encounter Note* Telephone Encounter - Sachin Marsh - 05/08/2024 2:23 PM EDT Final attempt left message on voicemail for daughter to call and schedule [facility]08-16-[facility] Miscellaneous Notes* Telephone Encounter - Sachin Marsh - 05/08/2024 2:23 PM EDT Final attempt left message on voicemail for daughter to call and schedule * Telephone Encounter - Sachin Marsh - 05/07/2024 1:29 PM EDT Left message on voicemail for patients daughter to call and schedule * Telephone Encounter - Anahy Masterson - 05/05/2024 9:44 AM EDT Call center calling for assistance with scheduling this patient. Called and LMOM for patient's daughter Janki Dobbs [phone] - patient needs to be scheduled with [facility]. documented in [facility] Tele[facility] encounter Note * Telephone Encounter - Sachin Marsh - 05/07/2024 1:29 PM EDT Left message on voicemail for patients daughter to call and schedule [facility]08-[facility] Telephone encounter Note* Telephone Encounter - Anahy Masterson - 05/05/2024 9:44 AM EDT Call center calling for assistance with scheduling this patient. Called and LMOM for patient's daughter Janki Dobbs [phone] - patient needs to be scheduled with [facility]. [facility]07-30[facility] Telephone encounter Note* Telephone Encounter - Zuleyka Srivastava RN - 04/21/2024 9:36 AM EDT DaughterRosenda updated and agrees to bring in Saturday or for recheck. Prefers to walk in with their schedules. Zuleyka Srivastava RN [facility]07-30-2024 Miscellaneous Notes* Telephone Encounter - Zuleyka Srivastava RN - 04/21/2024 9:36 AM EDT DaughterRosenda updated and agrees to bring in Saturday or for recheck. Prefers to walk in with their schedules. Zuleyka Srivastava RN * Telephone Encounter - Sandeep Lenz MD - 04/20/2024 10:35 PM EDT CBC stable, let's recheck on Saturday or , Please. * Telephone Encounter - Zuleyka Srivastava RN - 04/20/2024 1:49 PM EDT [place]: please review today's lab and advise Zuleyka Srivastava RN * Telephone Encounter - Zuleyka Srivastava RN - 04/20/2024 11:09 AM EDT Pt daughter aware and reports pt had been previously scheduled for lab recheck today at 115 at our facility. Ordered by Akosua Andrade MD. She is aware of additional standing orders placed by Dr Perry, and that he will check today's results, and provide plan of care. Will watch for results and have [place] review and update plan Zuleyka Srivastava RN * Telephone Encounter - Zuleyka Srivastava RN - 04/20/2024 11:08 AM EDT ----- Message from Sandeep Lenz [...] morning to establish stability. documented in this encounterH[facility]07-[facility] Telephone encounter Note * Telephone Encounter - Sandeep Lenz MD - 04/20/2024 10:35 PM EDT CBC stable, let's recheck on Saturday or , Please. [facility]07-29[facility] Telephone encounter Note* Telephone Encounter - Zuleyka Srivastava RN - 04/20/2024 1:49 PM EDT [place]: please review today's lab and advise Zuleyka Srivastava RN [facility]07-29-[facility] Telephone encounter Note* Telephone Encounter - Zuleyka Srivastava RN - 04/20/2024 11:09 AM EDT Pt daughter aware and reports pt had been previously scheduled for lab recheck today at 115 at our facility. Ordered by Akosua Andrade MD. She is aware of additional standing orders placed by Dr Perry, and that he will check today's results, and provide plan of care. Will watch for results and have [place] review and update plan Zuleyka Srivastava RN [facility]07-29-[facility] Telephone encounter Note* Telephone Encounter - Zuleyka Srivastava RN - 04/20/2024 11:08 AM EDT ----- Message from Sandeep Lenz [...] hemoglobin check this morning to establish stability. [facility]07-17-[facility] Telephone encounter Note* Telephone Encounter - Shena Hooper - 04/08/2024 11:16 AM EDT Patient and family have been called X 3 for scheduling EGD... just FYI [facility]07-17-2024 Miscellaneous Notes* Telephone Encounter - Shena Hooper - 04/08/2024 11:16 AM EDT Patient and family have been called X 3 for scheduling EGD... just FYI * Telephone Encounter - Sachin Marsh - 04/08/2024 11:14 AM EDT I did call the daughter Rosenda * Telephone Encounter - Shena Hooper - 04/08/2024 10:55 AM EDT Hi sachin can you please call Dtr to see if she will be able to schedule appt * Telephone Encounter - Sachin Marsh - 04/03/2024 12:47 PM EDT Left message on voicemail for patient to call and schedule * Telephone Encounter - Sachin Marsh - 04/03/2024 12:46 PM EDT Left message on voicemail for patient to call and schedule * Telephone Encounter - Aileen Burleson RN - 04/03/2024 9:57 AM EDT Images from the original note [...] AM) JK Just sent the triage to [facility] * Telephone Encounter - Shena Hooper - 04/02/2024 7:07 AM EDT Main id say ;) thank you. * Telephone Encounter - Shena Hooper - 04/01/2024 3:25 PM EDT Images from the original note were not included. Sandeep Lenz MD [facility] Clerical Pool; [facility] Triage Pool Hello - entered orders for kidney biopsy for MGUS. Also may need to see a holter scanning technician to consider a EGD for the PET results showing distal gastric uptake. Referral for this placed also. documented in this encounterH[facility]07-17-2024 Telephone encounter Note * Telephone Encounter - Sachin Marsh - 04/08/2024 11:14 AM EDT I did call the daughter Rosenda [facility] Telephone encounter Note* Telephone Encounter - Shena Hooper - 04/08/2024 10:55 AM EDT Hi sachin can you please call Dtr to see if she will be able to schedule appt [facility]07-17[facility] Telephone encounter Note* Telephone Encounter - Sachin Marsh - 04/08/2024 10:46 AM EDT Left message on voicemail for Rosenda to call and schedule [facility]07-17-[facility] Miscellaneous Notes* Telephone Encounter - Sachin Marsh - 04/08/2024 10:46 AM EDT Left message on voicemail for Rosenda to call and schedule * Telephone Encounter - Sachin Marsh - 04/06/2024 10:08 AM EDT Left message on voicemail for Rosenda to call and schedule * Telephone Encounter - Ondina Pool RN - 04/03/2024 3:33 PM EDT Call received from Agata Irizarry (Rosenda), patients daughter, with multiple questions regardingpending renal bx and EGD. Per prior phone [...] was confirmed correct in the demographics tab Ondina Pool RN documented in this encounterH[facility]07-15-2024 Telephone encounter Note * Telephone Encounter - Sachin Marsh - 04/06/2024 10:08 AM EDT Left message on voicemail for Rosenda to call and schedule [facility] Telephone encounter Note* Telephone Encounter - Ondina Pool RN - 04/03/2024 3:33 PM EDT Call received from Agatasudhir Rutledgez (Rosenda), patients daughter, with multiple questions regardingpending renal bx and EGD. Per prior phone [...] was confirmed correct in the demographics tab Ondina Pool RN [facility]07-12-20[facility] Telephone encounter Note* Telephone Encounter - Sachin Marsh - 04/03/2024 12:47 PM EDT Left message on voicemail for patient to call and schedule [facility]07-12-[facility] Telephone encounter Note* Telephone Encounter - Sachin Marsh - 04/03/2024 12:46 PM EDT Left message on voicemail for patient to call and schedule [facility]07-12[facility] Telephone encounter Note* Telephone Encounter - Aileen Burleson RN - 04/03/2024 9:57 AM EDT Images from the original note were not included. Schedulers please see attached feed to schedule EGD as able. I'm not sure if this is supposed to come to you ladies or elsewhere. Thank you Aileen Burleson RN Please assist with scheduling EGD with first available provider. Re Ballesteros Jr., Ashlie Lugo Sec, [id number] hours ago (10:51 AM) JK Just sent the triage to [facility]07-[facility] Telephone encounter Note* Telephone Encounter - Teofilo-Karla Wilson RN - 04/02/2024 11:35 AM EDT [facility] [place] Kid[facility] Biopsy is Approved to be Done in [facility]. Patient will stay overnight in 23-hr Observation [...] medications for this visit. ALLERGIES Allergen Reactions Rlbivuz-Scl-Jpg Red* Unknown Other reaction(s): AOF FILMS SENT TO WORKSTATION: GUIDELINES FOR HOLDING ANTI-PLATELET AND ANTI- COAGULATION THERAPY: Xarelto. This should be held 2 Doses prior to biopsy. NURSE SIGNATURE: Karla Alston RN DATE: April 02, 2024 TIME: 11:35 AM [facility]07-11-[facility]24 Miscellaneous Notes* Telephone Encounter - Karla Garsia RN - 04/02/2024 11:35 AM EDT Random [place] Kidney Biopsy is Approved to be Done [...] medications for this visit. ALLERGIES Allergen Reactions Xbtwmxs-Jao-Aui Red* Unknown Other reaction(s): AOF FILMS SENT TO WORKSTATION: GUIDELINES FOR HOLDING ANTI-PLATELET AND ANTI- COAGULATION THERAPY: Xarelto. This should be held 2 Doses prior to biopsy. NURSE SIGNATURE: Karla Alston RN DATE: April 02, 2024 TIME: 11:35 AM * Telephone Encounter - Ashlie Mendez - 04/02/2024 10:48 AM EDTSummary: Renal biopsy RADIOLOGY CALL CENTER INTAKE DATE: 04/02/2024 TIME: 10:49am REQUESTING STAFF: Sandeep Lenz MD PHONE/PAGER: [phone] SPECIFICS OF THE REQUEST: Renal Biopsy SPECIAL REQUESTS: TISSUE SAMPLE, LABWORK: N/A IS THIS REQUEST PART OF A RESEARCH PROTOCOL: No MEDICAL DIAGNOSIS: MGUS (monoclonal gammopathy of unknown significance) TYPE AND DATE OF THE EXAM THAT IS THE BASIS OF THE REQUEST: PET 03/20/2024 IMAGING: [facility] Note to all persons requesting biopsies: All biopsy requests will be scheduled as quickly as possible, based on the clinical urgency, availability of appointment times, the need to hold anti-thrombolytic therapy (aspirin, blood thinners) and the patient s schedule, including the need for an available ross carrier driver. If a percutaneous biopsy or drainage is not felt to be safe or an alternative method for establishing a diagnosis is possible, this will be discussed directly with the requesting physician. documented in this encounterHock[facility]07-11-2024 Telephone encounter Note * Telephone Encounter - Ashlie Mendez - 04/02/2024 10:48 AM EDTSummary: Renal biopsy RADIOLOGY CALL CENTER INTAKE DATE: 04/02/2024 TIME: 10:49am REQUESTING STAFF: Sandeep Lenz MD PHONE/PAGER: [phone] SPECIFICS OF THE REQUEST: Renal Biopsy SPECIAL REQUESTS: TISSUE SAMPLE, LABWORK: N/A IS THIS REQUEST PART OF A RESEARCH PROTOCOL: No MEDICAL DIAGNOSIS: MGUS (monoclonal gammopathy of unknown significance) TYPE AND DATE OF THE EXAM THAT IS THE BASIS OF THE REQUEST: PET 03/20/2024 IMAGING: [facility] Note to all persons requesting biopsies: All biopsy requests will be scheduled as quickly as possible, based on the clinical urgency, availability of appointment times, the need to hold anti-thrombolytic therapy (aspirin, blood thinners) and the patient s schedule, including the need for an available ross carrier driver. If a percutaneous biopsy or drainage is not felt to be safe or an alternative method for establishing a diagnosis is possible, this will be discussed directly with the requesting physician. [facility]07-[facility] Telephone encounter Note* Telephone Encounter - Shena Hooper - 04/02/2024 7:07 AM EDT Main id say ;) thank you. [facility]07-10-20[facility] Telephone encounter Note* Telephone Encounter - Shena Hooper - 04/01/2024 3:25 PM EDT Images from the original note were not included. Sandeep Lenz MD [facility] Clerical Pool; [facility] Triage Pool Hello - entered orders for kidney biopsy for MGUS. Also may need to see a holter scanning technician to consider a EGD for the PET results showing distal gastric uptake. Referral for this placed also. [facility]07-05-20[facility] Telephone encounter Note* Telephone Encounter - Shena Mary RN - 03/27/2024 3:11 PM EDT ----- Message from Sandeep Lenz MD sent at 03/26/2024 10:45 AM EDT ----- In Andrew - your PET CT didn't show any hole or lytic lesions in the bones. So I think we should plan to do a kidney biopsy to determine the imapct of your abnormal protein onthe kidneys. [facility] Work Phone: 1(663) 993-515807-05-2024 Miscellaneous Notes* Telephone Encounter - Shena Mary RN - 03/27/2024 3:11 PM EDT ----- Message from Sandeep Lenz MD sent at 03/26/2024 10:45 AM EDT ----- Elio Andrew - your PET CT didn't show any hole or lytic lesions in the bones. So I think we should plan to do a kidney biopsy to determine the imapct of your abnormal protein onthe kidneys. * Telephone Encounter - Geneva Nichols HUC - 03/27/2024 11:45 AM EDT I called and spoke with the Patient's granddaughter. I am waiting on a call back from the Patient to see if the Patient would like to be scheduled with Gastro either in the [facility] or locally here in [place]. * Telephone Encounter - Geneva Nichols HUC - 03/27/2024 10:33 AM EDT Images from the original note were not included. Sandeep Lenz MD [facility] Clerical Pool; [facility] Triage Pool Hello - entered orders for kidney biopsy for MGUS. Also may need to see a holter scanning technician to consider a EGD for the PET results showing distal gastric uptake. Referral for this placed also. documented in this encounterHock[facility]07-05-2024 Telephone encounter Note * Telephone Encounter - Geneva Nichols HUC - 03/27/2024 11:45 AM EDT I called and spoke with the Patient's granddaughter. I am waiting on a call back from the Patient to see if the Patient would like to be scheduled with Gastro either in the [facility] or locally here in [place]. [facility]07-05-20[facility] Telephone encounter Note* Telephone Encounter - Geneva Nichols HUC - 03/27/2024 10:33 AM EDT Images from the original note were not included. Sandeep Lenz MD [facility] Clerical Pool; [facility] Triage Pool Hello - entered orders for kidney biopsy for MGUS. Also may need to see a holter scanning technician to consider a EGD for the PET results showing distal gastric uptake. Referral for this placed also. [facility]07-04-[facility] Evaluation note* Diagnosis 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 Monoclonal paraproteinemia Stage 3 chronic kidney disease, unspecified whether stage 3a or 3b CKD (HCC) Monoclonal gammopathy of renal significance (MGRS) Abnormal finding on GI tract imaging Nonspecific (abnormal) findings on radiological and other examination of gastrointestinal tract documented in this encounter [facility]07-02-[facility] History of Present illness Narrative* Sandeep Lenz MD - 03/24/2024 1:15 PM EDT Images from the original note were not included. NAME: BarrosAndrew CLINIC NO.: [id number] DATE OF SERVICE: March 24, 2024 (Eduardo) Some elements in this clinic note that are critical to medical decision making have been carefully reviewed and included from a prior clinic note dated: February 24, 2024 (Eduardo) Referring Provider: Eduardo Sharpe Additional Clinicians involved in Andrew Barros's care: VIRTUAL VISIT PROGRESS NOTE This is a virtual visit using [employer] Video Visit. It required patient- provider interaction for the medical decision making as documented below. I have communicated my name and active licensure. The patient's identity and physical location wereverified at the time of this visit. Either the patient or their legal personal financial representative has been informed of the risks and benefits of -- and alternatives to -- treatment through a remote evaluation andconsents to proceed with the evaluation remotely. 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 11/14/2021 - Had intracranial hemorrhage with intracerebral hematoma in the right tempora lobe due to HTN and warfarin. 04/24/2021 - DEXA scan World Health Organization classification: Normal-low fracture risk. 01/04/2021 - Mammograms at [facility] Bi-Rads 2 benign. 09/26/2018-11/25/2023 - Arimidex [...] found to have an M-spike by her cash surrender calculator, Dr. Rojo. We discussed potential diagnoses and [...] No exam ____ ALLERGIES: ALLERGIES Allergen Reactions Tmytity-Qdu-Qiq Red* Unknown Other reaction(s): AOF MEDICATIONS: anastrozole [...] CPE Hematology and Oncology Services Provided at: [place], [place] Scribe Attestation: This note was scribed [...] direction. CC: Eduardo Sharpe MD [address] [facility] [id number] documented in this encounterHocking Valley [facility]06-28-2024 History of Present illness Narrative* Louisa Moulton RT(R) - 03/20/2024 1:30 PM EDT RADIOLOGY [...] PATIENT PRESENTS WITH AN IMPLANTABLE OR ATTACHED GROUND SERVICE EQUIPMENT MECHANIC: No CREATININE: Creatinine Date Value Ref Range [...] 1337 PATIENT DISCHARGED TO: Ambulatory patient, left IN department area. A Diagnostic radioactive procedure has taken place, with no further precautions necessary other than routine body substance precautions. More information regarding radiation safety can be found usingthis link: [email or web address] SIGNATURE: RT Gilles(R) PATIENT NAME: Andrew Braros DATE: March 20, 2024 TIME: 2:25 PM PAGER/CONTACT #: documented in this encounterHocking [facility]06-12-2024 Telephone encounter Note * Telephone Encounter - Jennifer Aviles - 03/04/2024 1:[address] Perry: Patient had labs drawn on 02/25. Patient was scheduled for a phone visit with you on 03/17. We have rescheduled this phone visit to 03/24. Thank You, Jennifer Covington [facility]06-12-2024 Miscellaneous Notes* Telephone Encounter - Jennifer Aviles - 03/04/2024 1:[address] Perry: Patient had labs drawn on 02/25. Patient was scheduled for a phone visit with you on 03/17. We have rescheduled this phone visit to 03/24. Thank You, Jennifer Covington documented in this encounterHocking Valley [facility] Hospital06-03-2024 Instructions* Patient Instructions* Sandeep Lenz MD - 02/24/2024 11:46 AM EDT Labs today in addition to previously drawn Workup for MGUS. Needs 24 H urine collection also Virtual visit in 15 days. documented in this encounterHocking Valley Community Hospital06-03-2024 Nurse Note* Arabella Plascencia MA - 02/24/2024 11:31 AM EDT Patient is here due to Pipe Insulator being concerned with abnormal blood work. Arabella Cotter MA [facility]06-03-2024 Nurse Note* Arabella Cotter MA - 02/24/2024 11:31 AM EDT Patient is here due to Pipe Insulator being concerned with abnormal blood work. Arabella Cotter MA documented in this encounterHocking Valley Community Hospital06-03-2024 History of Present illness Narrative* Sandeep Lezn MD - 02/24/2024 11:30 AM EDT Images from the original note were not included. NAME: Andrew Barros [facility] NO.: [id number] DATE OF SERVICE: February 24, 2024 (Eduardo) [...] outer quadrant, invasive ductal carcinoma, ER postive, [place]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 01/04/2021 - Mammograms at [facility] Bi-Rads 2 benign. 09/26/2018 - Started arimidex 09/10/2018 - Completed radiation 06/05/2018 - L breast lumpectomy and SNB Updated Visit, February 24, 2024: Presents with daughter Sugey and was found to have an M-spike by her cash surrender calculator, Dr. Rojo. We discussed potential diagnoses and [...] or petechiae. ____ ALLERGIES: ALLERGIES Allergen Reactions Brqewnb-Agu-Eax Red* Unknown Other reaction(s): AOF MEDICATIONS: doxazosin [...] which included preparing to see the patient, dnax-ax-[id number] patient care, completing clinical documentation, obtaining and/or reviewing separately obtained history, performing a medically appropriate examination, counseling and educating the pat ient/family/caregiver, ordering medications, tests, or procedures, independently interpreting results (not separately reported), communicating results to the patient/family/caregiver, and care coordination (not separately reported). Sandeep Lenz MD, CPE Hematology and Oncology Services Provided at: [place], [place] CC: Eduardo Sharpe MD [address] [facility] [id number] documented in this encounterHocking Valley Community Hospital05-29-2024 NoteUT Cardiology - [facility] Subjective Andrew Barros is a 78 y.o. year old female patient being seen for follow up echo done a few weeks ago. She also had labs for her cash surrender calculator. Denies chest pain, SOB, palpitations, and lightheadedness/syncope. [...] February 2023 she was admitted to the [facility] emergency room with epistaxis. She [...] right side a (more content not included)... [facility]05-21-2024 Telephone encounter Note* Telephone Encounter - Aileen Miller - 02/11/2024 9:38 AM EDT Records scanned. [facility]05-21-2024 Miscellaneous Notes* Telephone Encounter - Aileen Miller - 02/11/2024 9:38 AM EDT Records scanned. * Telephone Encounter - Zuleyka Srivastava RN - 02/10/2024 2:40 PM EDT Pt seen by [facility] cash surrender calculator, (unsure of whom), yesterday. Labs resulted high calcium and high protein. Recommended to see Dr Perry for further workup of cancer. Pt daughter transferred to [facility] to schedule. Lisa: please obtain records/nephrology office visit [place]: SHAYY; pt scheduled 02/24/24 for follow up to discuss Zuleyka Srivastava RN documented in this encounterHocking Valley Community Hospital05-20-2024 Telephone encounter Note * Telephone Encounter - Zuleyka Srivastava RN - 02/10/2024 2:40 PM EDT Pt seen by [facility] cash surrender calculator, (unsure of whom), yesterday. Labs resulted high calcium and high protein. Recommended to see Dr Perry for further workup of cancer. Pt daughter transferred to [facility] to schedule. Lisa: please obtain records/nephrology office visit [place]: SHAYY; pt scheduled 02/24/24 for follow up to discuss Zuleyka Srivastava RN [facility]03-04-[facility] Instructions* Patient Instructions* Sandeep Lnez MD - 11/25/2023 3:25 PM EST RTC in 1 year - repeat labs - Exam same day. Repeat Mammogram prior to return Stop Arimidex. documented in this encounterHocking Valley Community Hospital03-04-2024 History of Present illness Narrative* Sandeep Lenz MD - 11/25/2023 2:15 PM EST Images from the original note were not included. NAME: Andrew Barros CLINIC NO.: [id number] DATE OF SERVICE: November 25, 2023 (Eduardo) [...] outer quadrant, invasive ductal carcinoma, ER postive, [place]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 01/04/2021 - Mammograms at [facility] Bi-Rads 2 benign. 09/26/2018 - Started [...] or petechiae. ____ ALLERGIES: ALLERGIES Allergen Reactions Ztgwmwi-Zlp-Fit Red* Unknown Other reaction(s): AOF MEDICATIONS: anastrozole [...] which included preparing to see the patient, uyyi-yx-gbwu patient care, completing clinical documentation, obtaining and/or reviewing separately obtained history, performing a medically appropriate examination, communicating results to the pat ient/family/caregiver and care coordination (not separately reported). Sandeep Lenz MD, CPE Hematology and Oncology Services Provided at: [place], [place] CC: Eduardo Sharpe MD [address] [facility] [id number] documented in this encounterHocking Valley Community Hospital03-04-2024 Evaluation note* Diagnosis Malignant neoplasm of upper-outer quadrant of left breast in female, estrogen receptor positive (HCC)- Primary Stage 3 chronic kidney disease, unspecified whether stage 3a or 3b CKD (HCC) Breast screening Breast screening, unspecified Encounter for screening mammogram for malignant neoplasm of breast Other screening mammogram Hypercalcemia documented in this encounter [facility] [facility] History of Present illness Narrative* Mark Isabel, - 10/31/2023 10:45 AM EST Images from [...] @ 11:13 AM Additional Tests Keratometry K1 [place] K2 [place] Right 43.50 153 44 63 Left 43.75 [...] Normal Normal Refraction Wearing Rx Sphere Cylinder [place] Add Right -1.00 +0.00 180 +2.50 Left +1.75 -0.50 036 +2.50 Manifest Refraction Sphere Cylinder [place] Right -0.25 -0.75 141 Left Final Rx Sphere Cylinder [place] Dist [place] Add Right -1.00 20/25 +2.50 [...] different lens options were explained including the jbl-nb-zvnrjr fees for any upgrades. Intraocular lens (IOL) [...] to remain poorly compliant. documented in this encounterSSM Health [id number] Miscellaneous Notes* Telephone Encounter - Zuleyka Srivastava RN - 08/19/2023 2:47 PM EST Pt aware of Orlando's message. She denies any additional questions, needs or concerns at this time. Zuleyka Srivastava RN * Telephone Encounter - Zuleyka Srivastava RN - 08/19/2023 2:47 PM EST ----- Message from Sandeep Lenz MD sent at 08/19/2023 2:33 PM EST ----- Calcium janki normal. Kidney function is stable documented in this encounterHocking [facility]09-18-[facility]23 Miscellaneous Notes* Telephone Encounter - Jennifer [...] re-fax this referral and I was calling [facility] make sure they received it and see [...] up? Thanks! Francia Anderson documented in this encounterHocking Valley Community Hospital08-29-2023 Miscellaneous Notes* Telephone Encounter - Zuleyka Srivastava RN - 05/21/2023 10:18 AM EDT Pt aware of results and denies any questions or concerns at this time. She was transferred to [facility] to set up Q 6 week lab appts as requested. Zuleyka Srivastava RN * Telephone Encounter - Zuleyka Srivastava RN - 05/21/2023 10:18 AM EDT ----- Message from Sandeep Lenz MD sent at 05/21/2023 10:15 AM EDT ----- Calcium was improved. - kidney function stable. CBC was normal. documented in this encounterHocking Valley Community Hospital08-28-2023 Instructions* Patient Instructions* Sandeep Lenz MD - 05/20/2023 3:59 PM EDT Continue Arimidex. Refer to nephrology for hypercalcemia and kidney failure Repeat labs today RTC in 3 months - repeat labs documented in this encounterHocking Valley Community Hospital08-28-2023 History of Present illness Narrative* Sandeep Lenz MD - 05/20/2023 3:27 PM EDT Kathy nephrology NAME: Andrew Barros [facility] NO.: [id number] DATE OF SERVICE: May 20, 2023 (Eduardo) [...] outer quadrant, invasive ductal carcinoma, ER postive, FL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 Mammograms at [facility] on 01/04/2021 Bi-Rads 2 benign. REVIEW [...] wounds or petechiae. ALLERGIES: ALLERGIES Allergen Reactions Gevawud-Muv-Eel Red* Unknown Other reaction(s): AOF MEDICATIONS: anastrozole [...] which included preparing to see the patient, pdzv-et-esyq patient care, completing clinical documentation, obtaining and/or reviewing separately obtained history, performing a medically appropriate examination, communicating results to the pat ient/family/caregiver and care coordination (not separately reported). Sandeep Lenz MD, CPE Services Provided at: [facility], [place], [place] & [place], [place] CC: Eduardo Sharpe MD [address] [facility] [address] documented in this encounterHocking Valley Community Hospital08-17-2023 History of Present illness Narrative* Aleida Vargas LSW - 05/09/2023 10:59 AM EDT Patient appears on the [facility] First Time Treatment List for a non-oncology treatment. No psychosocial assessment is indicated. DAPHNE Gupta documented in this encounterHocking Valley Community Hospital08-07-2023 Instructions* Patient Instructions* Sandeep Lenz MD - 04/29/2023 4:09 PM EDT Continue Arimidex. Stop Calcium Continue Vitamin D. Zometa for hypercalcemia later this week Repeat labs and tumor markers prior to zometa Bone scan - TBH is fine. RTC after Bone scan documented in this encounterHocking Valley Community Hospital08-07-2023 History of Present illness Narrative* Sandeep Lenz MD - 04/29/2023 4:01 PM EDT Images from the original note were not included. NAME: Andrew Barros CLINIC NO.: [id number] DATE OF SERVICE: April 29, 2023 (Eduardo) [...] outer quadrant, invasive ductal carcinoma, ER postive, FL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 Mammograms at [facility] on 01/04/2021 Bi-Rads 2 benign. REVIEW [...] of recurring mass. ALLERGIES: ALLERGIES Allergen Reactions Jtbrycw-Xje-Ikw Red* Unknown Other reaction(s): AOF MEDICATIONS: doxazosin [...] acetaminophen 650 mg tab(s) (TYLENOL), DISCONTINUED: zoledronic ke-hhvrqbtt-9.9NaCl 4 mg iv piggyback 100 mL (ZOMETA) (E83.52) Hypercalcemia Plan: CA 27.29 BLOOD, CA 15-3 BLD, CBC + DIFF, COMP METABOLIC PANEL, PTH, INTACT (WITHOUT CALCIUM), PTH RELATED PEPTIDE, PTH, INTACT (WITHOUT CALCIUM), DISCONTINUED: PHARMACY COMMUNICATION PATIENT ARRIVED, DISCONTINUED: acetaminophen 650 mg tab(s) (TYLENOL), DISCONTINUED: zoledronic ak-hmwbubwl-2.9NaCl 4 mg iv piggyback 100 mL (ZOMETA) [...] which included preparing to see the patient, xmje-wf-qmbi patient care, completing clinical documentation, obtaining and/or reviewing separately obtained history, performing a medically appropriate examination, communicating results to the pat ient/family/caregiver and care coordination (not separately reported). Sandeep Lenz MD, CPE Services Provided at: [place], [place] & [place], [place] CC: Eduardo Sharpe MD [address] [facility] [address] documented in this encounterHocking Valley Community Hospital10-07-2022 Miscellaneous Notes* Telephone Encounter - Arabella Cotter MA - 06/29/2022 3:14 PM EDT Patient has an appt on 07/09/22. Would you like labs, if so place orders. Arabella Cotter MA documented in this encounterHocking Valley Community Hospital08-27-2022 History of Present illness Narrative* Kristian Mcwilliams MD - 05/19/2022 12:13 PM EDT Images from the original note were not included. EMERGENCY TRIAGE, TREAT AND TRANSPORT (ET3) DOCUMENTATION OF TELEHEALTH VISIT Date / Time: 05/19/2022 / 1130 Name: Andrew Barros : 1945 SSN: (Not on file) EMS Agency: [facility] [x] Verbal consent obtained [] [...] by: Kristian Mcwilliams MD documented in this [id number] History of Present illness Narrative* Herbret Pelaez MD - 01/08/2022 11:33 PM EDT Images from the original note were not included. Radiation Oncology - Follow Up Note PATIENT NAME: Andrew Barros PATIENT DIAGNOSIS/PATIENT IDENTIFICATION: Ms. Barros is a 76-year old female with Infiltrating ductal carcinoma of the Left breast, UOQ, pathologic stage IIA (pT1c pN1a M0), ER-positive, FL-positive and Her2/lauren not amplified, s/p partial mastectomy [...] was otherwise noncontributory. ALLERGIES ALLERGIES Allergen Reactions Trjfdgk-Poy-Zqx Red* Unknown Other reaction(s): AOF MEDICATIONS: Current [...] pathologic stage IIA (pT1c pN1a M0), ER-positive, FL-positive and Her2/lauren not amplified, s/p partial mastectomy [...] which included preparing to see the patient, nlep-tq-pesd patient care and counseling and educating the patient/family/caregiver. This document has been created with the use of voice recognition technology. It may contain inaccuracies, misspellings, inaccurate syntax or inappropriate word context that are a result of the inadequacies/shortcomings of said technology/software. documented in this encounterHocking Valley Community Hospital04-18-2022 History of Present illness Narrative* Sandeep Lenz MD - 01/08/2022 1:25 PM EDT Images from the original note were not included. NAME: Andrew Barros [facility] NO.: [id number] DATE OF SERVICE: January 08, 2022 Some [...] outer quadrant, invasive ductal carcinoma, ER postive, FL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 Mammograms at [facility] on 01/04/2021 Bi-Rads 2 benign. REVIEW [...] of recurring mass. ALLERGIES: ALLERGIES Allergen Reactions Ucizgad-Ags-Mqo Red* Unknown Other reaction(s): AOF MEDICATIONS: amLODIPine [...] which included preparing to see the patient, xhgq-qs-dlul patient care, completing clinical documentation, obtaining and/or reviewing separately obtained history, performing a medically appropriate examination, communicating results to the pat ient/family/caregiver and care coordination (not separately reported). Sandeep Lenz MD, CPE Services Provided at: [facility], [place], [place] & [place], [place] CC: Eduardo Sharpe MD [address] [facility] [id number] documented in this encounterHocking Valley Community Hospital04-18-2022 Nurse Note* Arabella Cotter MA - 01/08/2022 1:07 PM EDT Patient has had brain bleeds since being here last she is seeing Dr. Hernandez , she has been in [facility] as an inpatient due to the bleeds. Arabella Rodriguez MA documented in this encounterHocking Valley Community Hospital03-10-2022 Evaluation note* Encounter Date Diagnosis Assessment [...] present CT and compared to the previous. mSnap Other 12-25-2020 NoteMicrobiology PROCEDURE: Blood Culture Charcoal [R1] SOURCE: Blood BODY SITE: Arm L COLLECTED DATE/TIME: 09/09/2020 13:00 EST RECEIVED DATE/TIME: 09/09/2020 14:05 EST START DATE/TIME: 09/09/2020 14:05 EST FREE TEXT SOURCE: lt chelle Pettit DO, Koko Pettit DO, Koko FINAL REPORTS Final Report [] Verified Date/Time: 09/16/2020 16:03 EST No growth at 7 days. Performing Locations R1: This test was performed at: [facility], [address] [place] [address], [id number] , , JhjulgSelect Medical Ohiohealth Rehabilitation HospitalComment on above:Performed By: #### [id number] ####[facility] [address] [place], [place] [id number] NoteMicrobiology PROCEDURE: Blood Culture Charcoal [R1] SOURCE: Blood BODY SITE: Hand L COLLECTED DATE/TIME: 09/09/2020 13:49 EST RECEIVED DATE/TIME: 09/09/2020 14:06 EST START DATE/TIME: 09/09/2020 14:06 EST FREE TEXT SOURCE: Koko Pettit DO, DO, Koko FINAL REPORTS Final Report [] Verified Date/Time: 09/16/2020 16:01 EST No growth at 7 days. Performing Locations R1: This test was performed at: [facility], [address] [place] [address], [facility] , , QlgnmbSelect Medical Ohiohealth Rehabilitation HospitalComment on above:Performed By: #### [id number] #### [address] [address]Nipftncohe note* Diagnosis Onset Date Resolution Status Atrial fibrillation acute Diabetes acute Hypertension acute Intracerebral hemorrhage acu te Nontraumatic intracerebral hemorrhage acute [facility] Work Phone: Evaluation note* Diagnosis Malignant neoplasm of upper-outer quadrant of left breast in female, estrogen receptor positive (HCC)- Primary Encounter for screening for osteoporosis Special screening for osteoporosis Hypercalcemia documented in this encounter [facility] HospitalEval[facility]aint [facility] note* Diagnosis Malignant neoplasm of upper-outer quadrant of left breast in female, estrogen receptor positive (HCC)- Primary documented in this encounter [facility]Eval[facility] note* Diagnosis Dyspnea, unspecified type- Primary [facility]* Diagnosis Malignant neoplasm of upper-outer quadrant of left breast in female, estrogen receptor positive (HCC)- Primary Encounter for screening for osteoporosis Special screening for osteoporosis Hypercalcemia Hypercalcemia documented in this encounter [facility] HospitalEval[facility] note* Diagnosis Malignant neoplasm of upper-outer quadrant of left breast in female, estrogen receptor positive (HCC) documented in this encounter [facility]* Diagnosis Hypercalcemia- Primary Other specified menopausal and perimenopausal disorders Malignant neoplasm of upper-outer quadrant of left breast in female, estrogen receptor positive (HCC) documented in this encounter [facility] note* Diagnosis Malignant neoplasm of upper-outer quadrant of left breast in female, estrogen receptor positive (HCC)- Primary Hypercalcemia Malignant neoplasm of breast in female, estrogen receptor positive, unspecified laterality, unspecified site of breast (HCC) Stage 3 chronic kidney disease, unspecified whether stage 3a or 3b CKD (HCC) documented in this encounter [facility] note* Diagnosis Malignant neoplasm of upper-outer quadrant of left breast in female, estrogen receptor positive (HCC) documented in this encounter [facility] note* Diagnosis Hypercalcemia- Primary Malignant neoplasm of upper-outer quadrant of left breast in female, estrogen receptor positive (HCC) Stage 3 chronic kidney disease, unspecified whether stage 3a or 3b CKD (HCC) documented in this encounter [facility] noteNo [facility] Other Evaluation note* Diagnosis Age-related nuclear cataract of left eye- Primary Primary open angle glaucoma (POAG) of both eyes, mild stage (CMS/HCC) documented [facility] this encounter [facility]* Diagnosis Onset Date Resolution Status Anemia of renal disease acut e CKD (chronic kidney disease) stage 4, GFR 15-29 ml/min acute Hyperlipidemia acute [id number] acute Secondary hyperparathyroidism acute Type 2 diabetes mellitus wit h diabetic chronic kidney disease acute [facility] Work Phone: Evaluation note* Diagnosis Onset Date Resolution Status Anemia of renal disease acut e CKD (chronic kidney disease) stage 4, GFR 15-29 ml/min acute Hyperlipidemia acute [id number] acute Secondary hyperparathyroidism acute Type 2 diabetes mellitus wit h diabetic chronic kidney disease acute Anemia of renal disease acut e CKD (chronic kidney disease) stage 4, GFR 15-29 ml/min acute Hypercalcemia acute Hyperlipidemia acute [id number] acute Proteinuria acute Type 2 diabetes mellitus wit h diabetic chronic kidney disease acute [facility] Work Phone: Evaluation note* Diagnosis 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 Monoclonal paraproteinemia Hypercalcemia Stage 3 chronic kidney disease, unspecified whether stage 3a or 3b CKD (HCC) Malignant neoplasm of upper-outer quadrant of left breast in female, estrogen receptor positive (HCC) documented in this encounter [facility]* Diagnosis Abnormal kidney function- Primary Unspecified disorder of kidney and ureter documented in this encounter [facility]* Diagnosis Abnormal gastrointestinal PET scan- Primary Nonspecific abnormal results of other specified function study Gastritis, presence of bleeding unspecified, unspecified chronicity, unspecified gastritis type documented in this encounter [facility] noteNo assessment information availableMemorial [facility] Work Phone: Evaluation note* Diagnosis Multiple myeloma not having achieved remission (HCC) Multiple myeloma, without mention of having achieved remission documented in this encounter [facility]* Diagnosis Onset Date Resolution Status Anemia of renal disease acut e CKD (chronic kidney disease) stage 4, GFR 15-29 ml/min acute Hypercalcemia acute Hyperlipidemia acute [id number] acute Hyperuricemia acute Proteinuria acute Type 2 diabetes mellitus wit h diabetic chronic kidney disease acute [facility] Work Phone: Evaluation note* Diagnosis 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 MGUS (monoclonal gammopathy of unknown significance) Monoclonal paraproteinemia Stage 3 chronic kidney disease, unspecified whether stage 3a or 3b CKD (HCC) Malignant neoplasm of breast in female, estrogen receptor positive, unspecified laterality, unspecified site of breast (HCC) documented in this encounter [facility] note* Diagnosis Malignant neoplasm of upper-outer quadrant of left breast in female, estrogen receptor positive (HCC)- Primary MGUS (monoclonal gammopathy of unknown significance) Monoclonal paraproteinemia Monoclonal gammopathy of renal significance (MGRS) Stage 3 chronic kidney disease, unspecified whether stage 3a or 3b CKD (HCC) documented in this encounter [facility] note* Diagnosis Onset Date Resolution Status Admit Date Anemia of renal disease acute A pril 2024 3:41pm CKD (chronic kidney disease) stage 4, GFR 15-29 ml/min acute December 31, 2024 3:41pm Hypercalcemia acute December 31, 2024 3:41pm Hyperlipidemia acute December 3:41pm Hypertensive chronic kidney disease with stage 1 through stage 4 chronic ki acute December 31, 2024 3:41pm Hyperuricemia acute December 31, 2024 3:41pm Proteinuria acute December 31, 2 025 3:41pm Secondary hyperparathyroidism acute December 31, 2024 3:41pm Type 2 diabetes mellitus wit h diabetic chronic kidney disease acute December 31, 2024 3:41pm [facility] Work Phone: History and physical note Author Amanda Contreras [facility] May 26, 2024 10:20am Note Date/Time May 26, 2024 10:20am [facility] [address] [place] [address] Gastroenterology H&P Signed Patient: Andrew Barros MR#: [id number] : 1945 Acct:[id number] Age/Sex: 78 / F Adm Date: 4 Loc: Room: Type: [facility] Attending Dr: Amanda Contreras DO [...] signed by Amanda Contreras DO> 05/26/24 1020 [facility] Work Phone: History general Narrative - Reported* Type Description Date Medical History hypertension Medical History heart disease Medical History Esophageal reflux Medical History diabetes mallitus Medical History cancer Surgical History breast cancer Hospitalization History See Above mSnap Other Hospital Discharge instructions Additional Instructions DISCHARGE [...] NOT operate machinery such as power tools, Cortus SAn mowers, FreeLunchedwers, sewing machines, etc. for 24 hours. - [...] problems. -Follow up with PCP. -Office number [phone]. [facility] Work Phone: [facility] (n[facility] Diagnostic Procedure Only (Routine) - Pending Review Specialty Diagnoses / Procedures Referred By Compa hampton Referred To Contact MOLECULAR & FUNCTIONAL IMAGING Diagnoses Malignant neoplasm of breast in female, estrogen receptor positive, unspecified laterality, unspecified site of breast (HCC) Procedures NM BONE WHOLE BODY BONE &/JOINT IMAGING WHOLE BODY Sandeep Lenz MD [address] [place] [address] [address] [place] [address] Molecular & Functional Imaging [address] [place], [place] [id number] Referral ID Status Reason Start Date Expiration Date Visits Requested Visits Authorized [id number] Pending Review Auto-Generat ed Referral 04/29/2023 05/28/2024 [...] 2-VIEW BREAST INC CAD Sandeep Lenz MD [address] [place] [address] [address] [place], [place] [address] [facility] Imaging [address] [place] [address] Referral ID Status Reason Start Date Expiration Date Visits Requested Visits Authorized [id number] Pending Review Auto-Generat ed Referral 10/27/2024 12/24/2024 1 1 [facility] for referral (narrative)* Outpatient Procedure (Routine) - New Request Specialty Diagnoses / Procedures Referred By Compa hampton Referred To Contact [facility] Diagnoses Abnormal gastrointestinal PET scan Gastritis, presence of bleeding unspecified, unspecified chronicity, unspecified gastritis type Procedures EGD DIAGNOSTIC ESOPHAGOGASTRODUODENOSCOPY TRANSORAL DIAGNOSTIC Re [address] [place] [address] [facility] [address] [place] [address] Referral ID Status Reason Start Date Expiration Date Visits Requested Visits Authorized [id number] New Request Auto-Generat ed Referral 04/03/2024 04/03/2025 1 1 [facility] for referral (narrative)* Diagnostic Procedure Only (Routine) - Closed Specialty Diagnoses / Procedures Referred By Compa t Referred To Contact MOLECULAR & FUNCTIONAL IMAGING Diagnoses Multiple myeloma not having achieved remission (HCC) Procedures NM PET/CT WHOLE BODY INITIAL PET IMAGING FOR CT ATTENUATION WHOLE BODY Sandeep Lenz MD [address] [place] [address] [place] [address] Molecular & Functional Imaging [address] [id number] Referral ID Status Reason Start Date Expiration Date V isits Requested Visits Authorized [id number] Closed Auto-Generate d Referral 03/06/2024 04/05/2025 1 1 [facility]No reason for referral information availableSal[facility] Work Phone: Summary Purpose Family History No Family History [...] disease) stage 4, GFR 15-29 ml/min Hyperlipidemia [id number] Secondary hyperparathyroidism Type 2 diabetes mellitus with diabetic chronic kidney disease Chief Complaint RENAL CKD 4 RENAL F/U / LAB REVIEW Reason for Visit Anemia of renal dise ase CKD (chronic kidney disease) stage 4, GFR 15-29 ml/min Hyperlipidemia [id number] Secondary hyperparathyroidism Type 2 diabetes mellitus with diabetic chronic kidney disease Anemia of renal disease CKD (chronic kidney disease) stage 4, GFR 15-29 ml/min Hypercalcemia Hyperlipidemia [id number] Proteinuria Type 2 diabetes mellitus with diabetic chronic kidney disease Chief Complaint abnormal findings on PET CT abnormal findings on PET CT Chief Complaint abnormal findings on PET CT abnormal findings on PET CT RENAL 6 MONTH F/U Reason for Visit Anemia of renal dise [facility] CKD (chronic kidney disease) stage 4, GFR 15-29 ml/min Hypercalcemia Hyperlipidemia [id number] Hyperuricemia Proteinuria Type 2 diabetes mellitus with diabetic chronic kidney disease Chief Complaint Admit Date RENAL 6 MONTH F/U December 31, 2024 3:4 1pm Reason for Visit Admit Date Anemia of renal disease December 31, 2024 3:41pm CKD (chronic kidney disease) stage 4, GF R 15-29 ml/min December 31, 2024 3:41pm Hypercalcemia December 31, 2024 3:4 1pm Hyperlipidemia December 31, 2024 3:4 1pm Hypertensive chronic kidney disease with stage 1 through stage 4 chronic ki December 31, 2024 3:41pm Hyperuricemia December 31, 2024 3:4 1pm Proteinuria December 31, 2024 3:4 1pm Secondary hyperparathyroidism December 3:41pm Type 2 diabetes mellitus with diabetic c hronic kidney disease December 31, 2024 3:41pm Chief Complaint Admit Date RENAL 6 MONTH F/U December 31, 2024 3:4 1pm renal 3 month f/u March 25, 2025 9:56a m Reason for Visit Admit Date Anemia of renal disease December 31, 2024 3:41pm CKD (chronic kidney disease) stage 4, GF R 15-29 ml/min December 31, 2024 3:41pm Hyperlipidemia December 31, 2024 3:4 1pm Hypertensive chronic kidney disease with stage 1 through stage 4 chronic ki December 31, 2024 3:41pm Hyperuricemia December 31, 2024 3:4 1pm Proteinuria December 31, 2024 3:4 1pm Secondary hyperparathyroidism December 3:41pm Type 2 diabetes mellitus with diabetic c hronic kidney disease December 31, 2024 3:41pm Anemia of renal disease March 25, 2025 9 :56am CKD (chronic kidney disease) stage 4, GF R 15-29 ml/min March 25, 2025 9:56am Gout March 25, 2025 9:56a m Hyperlipidemia March 25, 2025 9:56a m Hypertensive chronic kidney disease with stage 1 through stage 4 chronic ki March 25, 2025 9:56am MGUS (monoclonal gammopathy of unknown s ignificance) March 25, 2025 9:56am Proteinuria March 25, 2025 9:56a m Secondary hyperparathyroidism March 25, 2025 9:56am Type 2 diabetes mellitus with diabetic c hronic kidney disease March 25, 2025 9:56am Medications Administered Section Inactive Administered Medications - [...] 04/30/2023 2:46 PM EDT 650 mg zoledronic bl-oxaixjty-4.9NaCl 4 mg iv piggyback 100 mL (ZOMETA) [...] HIGH MDM 60 MINUTES Sandeep Lenz MD [address] [place] [address] [address] [place], [place] [address] Referral ID Status Reason Start Date Expiration Date Visits Requested Visits Authorized [id number] Authorized PCP Requested Referral 03/26/2024 03/26/2025 1 1 Specialty Diagnoses / Procedures Referred By Compa hampton Referred To Contact Nephrology Diagnoses Hypercalcemia Stage 3 chronic kidney disease, unspecified whether stage 3a or 3b CKD (HCC) Procedures CONSULT TO KIDNEY MEDICINE OFFICE/[facility] MDM 60-74 MINUTES Sandeep Lenz MD [address] [place] [address] [address] [place] [address] Referral ID Status Reason Start Date Expiration Date Visits Requested Visits Authorized [id number] Authorized PCP Requested Referral 05/20/2023 05/19/2024 1 1 Additional Source Comments INFORMATION SOURCE (unrecogn ized section and content) DATE CREATED AUTHOR 01/18/2021 [facility] DATE CREATED AUTHOR AUTHOR'S ORGANIZ ATION 05/15/2022 [facility] DATE CREATED AUTHOR AUTHOR'S ORGANIZ ATION 05/22/2022 [facility] DATE CREATED AUTHOR AUTHOR'S ORGANIZ ATION 09/24/2022 [facility] DATE CREATED AUTHOR AUTHOR'S ORGANIZ ATION 11/01/2023 [facility] DATE CREATED AUTHOR AUTHOR'S ORGANIZ ATION 04/09/2024 [facility] DATE CREATED AUTHOR AUTHOR'S ORGANIZ ATION 01/28/2025 [facility] DATE CREATED AUTHOR AUTHOR'S ORGANIZ ATION 04/16/2025 [facility] DATE CREATED AUTHOR AUTHOR'S ORGANIZ ATION 06/14/2025 [facility] Care Teams (unrecognized sec tion and content) Team Status: Active Member Role Status Dates PHYSICIAN NO FAMILY Primary Care Provider Active Team Status: Inactive Member Role Status Dates Eduardo Sharpe MD Primary Care Provider Active Start: December 31, 2024 End: December 31, 2024 Vince Rojo MD Attending Provider Active Start : December 31, 2024 End: December 31, 2024 Team Status: Active Member Role Status Dates Eduardo Sharpe MD Primary Care Provider Active Start: March 15, 2025 Vince Rojo MD Attending Provider Active Start : March 15, 2025 Team Status: Inactive Member Role Status Dates Vince Rojo MD Attending Provider Active Start : March 25, 2025 End: March 25, 2025 PHYSICIAN NO FAMILY Primary Care Provider Active Start: March 25, 2025 End: March 25, 2025 Team Status: Active Member Role Status Dates [...] Active Brayden Hernandez MD Attending Provider Active Death Surveys Coder Relationship Specialty Start Date End Date Eduardo Sharpe MD [address] [place] [address] PCP - General Family Practice 05/30/18 Death Surveys Coder Relationship Specialty Start Date End Date Eduardo Sharpe MD [address] [place] [address] PCP - General Family Practice 05/30/18 Death Surveys Coder Relationship Specialty Start Date End Date Eduardo Sharpe MD [address] [place] [address] PCP - General Family Medicine 05/30/18 Death Surveys Coder Relationship Specialty Start Date End Date Eduardo Sharpe MD [address] [place] [address] PCP - General Family Medicine 05/30/18 Death Surveys Coder Relationship Specialty Start Date End Date Eduardo Sharpe MD PCP - General Family Medicine 05/30/18 Death Surveys Coder Relationship Specialty Start Date End Date Eduardo Sharpe MD PCP - General Family Medicine 05/30/18 Death Surveys Coder Relationship Specialty Start Date End Date Eduardo Sharpe MD PCP - General Family Medicine 05/30/18 Death Surveys Coder Relationship Specialty Start Date End Date Eduardo Sharpe MD PCP - General Family Medicine 05/30/18 Death Surveys Coder Relationship Specialty Start Date End Date Eduardo Sharpe MD PCP - General Family Medicine 05/30/18 Death Surveys Coder Relationship Specialty Start Date End Date Eduardo Sharpe MD PCP - General Family Medicine 05/30/18 Death Surveys Coder Relationship Specialty Start Date End Date Eduardo Sharpe MD PCP - General Family Medicine 05/30/18 Death Surveys Coder Relationship Specialty Start Date End Date Eduardo Sharpe MD PCP - General Family Medicine 05/30/18 Death Surveys Coder Relationship Specialty Start Date End Date Eduardo Sharpe MD PCP - General Family Medicine 05/30/18 Death Surveys Coder Relationship Specialty Start Date End Date Eduardo [...] February 10, 2024 End: February 10, 2024 Death Surveys Coder Relationship Specialty Start Date End Date Eduardo Sharpe MD PCP - General Family Medicine 05/30/18 Death Surveys Coder Relationship Specialty Start Date End Date Eduardo Sharpe MD PCP - General Family Medicine 05/30/18 Death Surveys Coder Relationship Specialty Start Date End Date Eduardo Sharpe MD PCP - General Family Medicine 05/30/18 Death Surveys Coder Relationship Specialty Start Date End Date Eduardo Sharpe MD PCP - General Family Medicine 05/30/18 Death Surveys Coder Relationship Specialty Start Date End Date Eduardo Sharpe MD PCP - General Family Medicine 05/30/18 Death Surveys Coder Relationship Specialty Start Date End Date Eduardo [...] July 16, 2024 End: July 16, 2024 Death Surveys Coder Relationship Specialty Start Date End Date Eduardo Sharpe MD PCP - General Family Medicine 05/30/18 Death Surveys Coder Relationship Specialty Start Date End Date Eduardo Sharpe MD PCP - General Family Medicine 05/30/18 Death Surveys Coder Relationship Specialty Start Date End Date Eduardo Sharpe MD PCP - General Family Medicine 05/30/18 Source Comments (unrecognize d section and content) In the event this informatio n is protected by the Federal Confidentiality of Alcohol and Drug Abuse Patient Records regulations: The Federal rules restrict any use of the information to criminally investigate or prosecute any alcohol or drug abuse patient.[facility] the event this information is protected by the Federal Confidentiality of Alcohol and Drug Abuse Patient Records regulations: The Federal rules restrict any use of the information to criminally investigate or prosecute any alcohol or drug abuse patient.[facility] the event this information is protected by the Federal Confidentiality of Alcohol and Drug Abuse Patient Records regulations: The Federal rules restrict any use of the information to criminally investigate or prosecute any alcohol or drug abuse patient.[facility] the event this information is protected by the Federal Confidentiality of Alcohol and Drug Abuse Patient Records regulations: The Federal rules restrict any use of the information to criminally investigate or prosecute any alcohol or drug abuse patient.[facility] the event this information is protected by the Federal Confidentiality of Alcohol and Drug Abuse Patient Records regulations: The Federal rules restrict any use of the information to criminally investigate or prosecute any alcohol or drug abuse patient.[facility] the event this information is protected by the Federal Confidentiality of Alcohol and Drug Abuse Patient Records regulations: The Federal rules restrict any use of the information to criminally investigate or prosecute any alcohol or drug abuse patient.[facility] the event this information is protected by the Federal Confidentiality of Alcohol and Drug Abuse Patient Records regulations: The Federal rules restrict any use of the information to criminally investigate or prosecute any alcohol or drug abuse patient.[facility] the event this information is protected by the Federal Confidentiality of Alcohol and Drug Abuse Patient Records regulations: The Federal rules restrict any use of the information to criminally investigate or prosecute any alcohol or drug abuse patient.[facility] the event this information is protected by the Federal Confidentiality of Alcohol and Drug Abuse Patient Records regulations: The Federal rules restrict any use of the information to criminally investigate or prosecute any alcohol or drug abuse patient.[facility] the event this information is protected by the Federal Confidentiality of Alcohol and Drug Abuse Patient Records regulations: The Federal rules restrict any use of the information to criminally investigate or prosecute any alcohol or drug abuse patient.[facility] the event this information is protected by the Federal Confidentiality of Alcohol and Drug Abuse Patient Records regulations: The Federal rules restrict any use of the information to criminally investigate or prosecute any alcohol or drug abuse patient.[facility] the event this information is protected by the Federal Confidentiality of Alcohol and Drug Abuse Patient Records regulations: The Federal rules restrict any use of the information to criminally investigate or prosecute any alcohol or drug abuse patient.[facility] the event this information is protected by the Federal Confidentiality of Alcohol and Drug Abuse Patient Records regulations: The Federal rules restrict any use of the information to criminally investigate or prosecute any alcohol or drug abuse patient.[facility] the event this information is protected by the Federal Confidentiality of Alcohol and Drug Abuse Patient Records regulations: The Federal rules restrict any use of the information to criminally investigate or prosecute any alcohol or drug abuse patient.[facility] the event this information is protected by the Federal Confidentiality of Alcohol and Drug Abuse Patient Records regulations: The Federal rules restrict any use of the information to criminally investigate or prosecute any alcohol or drug abuse patient.[facility] the event this information is protected by the Federal Confidentiality of Alcohol and Drug Abuse Patient Records regulations: The Federal rules restrict any use of the information to criminally investigate or prosecute any alcohol or drug abuse patient.[facility] the event this information is protected by the Federal Confidentiality of Alcohol and Drug Abuse Patient Records regulations: The Federal rules restrict any use of the information to criminally investigate or prosecute any alcohol or drug abuse patient.[facility] the event this information is protected by the Federal Confidentiality of Alcohol and Drug Abuse Patient Records regulations: The Federal rules restrict any use of the information to criminally investigate or prosecute any alcohol or drug abuse patient.[facility] the event this information is protected by the Federal Confidentiality of Alcohol and Drug Abuse Patient Records regulations: The Federal rules restrict any use of the information to criminally investigate or prosecute any alcohol or drug abuse patient.[facility] the event this information is protected by the Federal Confidentiality of Alcohol and Drug Abuse Patient Records regulations: The Federal rules restrict any use of the information to criminally investigate or prosecute any alcohol or drug abuse patient.[facility] the event this information is protected by the Federal Confidentiality of Alcohol and Drug Abuse Patient Records regulations: The Federal rules restrict any use of the information to criminally investigate or prosecute any alcohol or drug abuse patient.[facility] the event this information is protected by the Federal Confidentiality of Alcohol and Drug Abuse Patient Records regulations: The Federal rules restrict any use of the information to criminally investigate or prosecute any alcohol or drug abuse patient.[facility] the event this information is protected by the Federal Confidentiality of Alcohol and Drug Abuse Patient Records regulations: The Federal rules restrict any use of the information to criminally investigate or prosecute any alcohol or drug abuse patient.[facility] the event this information is protected by the Federal Confidentiality of Alcohol and Drug Abuse Patient Records regulations: The Federal rules restrict any use of the information to criminally investigate or prosecute any alcohol or drug abuse patient.[facility] the event this information is protected by the Federal Confidentiality of Alcohol and Drug Abuse Patient Records regulations: The Federal rules restrict any use of the information to criminally investigate or prosecute any alcohol or drug abuse patient.[facility] the event this information is protected by the Federal Confidentiality of Alcohol and Drug Abuse Patient Records regulations: The Federal rules restrict any use of the information to criminally investigate or prosecute any alcohol or drug abuse patient.[facility] HospitalIn the event this information is protected by the [facility] Confidentiality of Alcohol and Drug Abuse Patient Records regulations: The Federal rules restrict any use of the information to criminally investigate or prosecute any alcohol or drug abuse patient.[facility] HospitalIn the event this information is protected by the Federal Confidentiality of Alcohol and Drug Abuse Patient Records regulations: The Federal rules restrict any use of the information to criminally investigate or prosecute any alcohol or drug abuse patient.[facility] Reason for Visit (unrecogniz ed section [...] and perimenopausal disorders Hypercalcemia Sandeep Lenz MD [facility] [place] [address] [employer] [facility] [place] [address] Referral ID Status Reason Start Date Expiration Date V isits Requested Visits Authorized [id number] Authorized 04/29/2023 07/28/2023 99 99 Reason Comments [...] CT ATTENUATION WHOLE BODY Sandeep Lenz MD [address] [place] [address] [place] [address] [facility] [address] [place] [address] Referral ID Status Reason Start Date Expiration Date V isits Requested Visits Authorized [id number] Closed Auto-Generate d Referral 03/06/2024 04/05/2025 1 1 Reason Comments [facility] Follow up Reason Comments Follow Up Goals (unrecognized section and content) Goals may [...] BE BASED ON THE PRIMARY CLINICAL RECORDS. [employer] provides no warranty or guarantee of the accuracy or completeness of information in this document.
--- NOTE | 2025-07-06 10:00 | CA_ITS ---
Patient Name: ANDREW JAMISON MR#: [id number] : 1945 Exam Date: 07/06/2025 Ordering Doctor: DR GISSELL SANDOVAL M.D. ECHOCARDIOGRAM REPORT PROCEDURE: CA ECHO DOPPLER COMPLETE INDICATIONS: Atrial fibrillation, pulmonary hypertension, heart failure COMPARISON: None. DESCRIPTION: COMPLETE ECHOCARDIOGRAM Real-time transthoracic echocardiography with 2D, M-mode, spectral and color flow Doppler performed. QUALITY: Technical quality was good. LEFT VENTRICLE: Normal chamber size. Mild concentric left ventricular hypertrophy. Global left ventricular systolic function is normal. LV EF: Estimated left ventricular ejection fraction is 60-65%. DIASTOLIC: Not adequately assessed due to heart rhythm. ATRIAL SEPTUM: LEFT ATRIUM: Moderate dilatation. RIGHT ATRIUM: Moderate dilatation. RIGHT VENTRICLE: Normal chamber size. Normal right ventricular systolic function. TRICUSPID VALVE: Normal mobility and thickness. No stenosis with mild regurgitation. Mild pulmonary hypertension. RVSP 37 mmHg MITRAL VALVE: Mildly thickened with normal mobility. No evidence of mitral valve stenosis. Mild mitral annular calcification. Moderate mitral regurgitation. AORTIC VALVE: Normal trileaflet appearance. Mildly calcified aortic valve. Normal leaflet mobility. No evidence of aortic valve stenosis. Trivial aortic regurgitation. AORTIC ROOT: Normal diameter and appearance, measuring 2.6 cm. The ascending aorta is normal in size measuring 3.1 cm. PULMONIC VALVE: Normal thickness and mobility. No stenosis. Trivial regurgitation. PERICARDIUM: No evidence of pericardial effusion. IVC: Collapses with inspiration. Normal size. PLEURA: CONCLUSION: 1. Mild concentric left ventricular hypertrophy with normal systolic function. Estimated LVEF is 60 to 65%. 2. Normal right ventricular size and systolic function. 3. Moderate biatrial dilatation. 4. Moderate mitral regurgitation. 5. Mild tricuspid regurgitation. 6. Mildly elevated right-sided pressures. Adult Echocardiography Procedure Report Left Ventricle LVEDD (3.7 - 5.6 cm): 4.25 cm LVESD (2.2 - 4.0 cm): 2.81 cm LVIVS thickness (0.6 - 1.2 cm): 1.12 cm LVPW thickness (0.5 - 1.0 cm): 1.05 cm e': 0.08 m/s E - e': 13.87 LVOT Max Gradient: 4.77 mm[Hg] LVOT Area (cm2): 1.09 m/s Peak Velocity (LVOT): 1.09 m/s Mean Velocity (LVOT): 0.69 m/s LVOT Diameter 1.65 cm Left Ventricular Ejection Fraction: 60-65 % Left Atrium LA Volume Index (2D A2C): 41.01 ml/m2 Left Atrium Systolic Dimension: 4.23 cm Mitral Valve Mitral Valve E-Wave Peak Velocity: 1.07 m/s Right Ventricle RV Internal Diastolic Dimension: 3.57 cm Aorta AO Root Diam: 2.61 cm Ascending Ao Diam: 3.12 cm Aortic Valve AoV Area (Peak Abhijit): 1.60 cm2, 1.60 cm2 AoV Area (VTI): 1.48 cm2, 1.48 cm2 Peak Velocity(Antegrade Flow): 1.47 m/s Peak Gradient(Antegrade Flow): 8.61 mm[Hg] Mean Velocity(Antegrade Flow): 1.00 m/s Mean Gradient(Antegrade Flow): 4.70 mm[Hg] Velocity Time Integral: 34.75 cm Tricuspid Valve Peak Velocity (Regurgitant Flow): 2.93 m/s, 2.76 m/s, 2.82 m/s Pulmonic Valve Mean Gradient: 1.78 mm[Hg], 2.41 mm[Hg] Mean Velocity: 0.61 m/s, 0.74 m/s Peak Velocity: 0.94 m/s Peak Gradient: 3.22 mm[Hg], 3.88 mm[Hg] Right Atrium Right Atrium Systolic Pressure: 37.76 ml, 37.76 ml Dictated by: Gissell Sandoval M.D. on 07/06/2025 at 19:25 Approved by: Gissell Sandoval M.D. on 07/06/2025 at 19:29
== END 2025-07-06 09:45 | disposition home or self-care (01) ==
LOC: CARD 09:44
PROVIDERS: PCP Family Medicine; Visit Provider Internal Medicine Interventional Cardiology
DX: I48.0 Paroxysmal atrial fibrillation (principal); I34.0 Nonrheumatic mitral (valve) insufficiency; I27.20 Pulmonary hypertension, unspecified; I50.32 Chronic diastolic (congestive) heart failure
CPT/HCPCS: 93306

== ENCOUNTER 2025-08-06 07:25 | Outpatient (OUT) | payer MEDICARE, OTHER, SELFPAY ==
--- OUTSIDE RECORDS SUMMARY | 2025-08-03 06:15 | XMS_ITS ---
Author Organization [facility] in [place] Address [address] [place] [address] Care Team Providers Care Reimbursement Director Name Role Phone Gregorio Mcnamara Primary Care Provider [phone] Allergies Allergen (clinical drug ingredient) Drug/Non Drug Allergy documented on EMR Reaction Allergy Type Onset Date Status Substance with 5-imlmxdm-5-m ethylglutaryl-coenzyme A reductase inhibitor mechanism of action (substance) Statins muscle pain Drug Allergy Active REASON FOR VISIT 4mon Medications Medication SIG (Take, Route, Frequency, Duration) Notes Start Date End Date Status Incentive spirometer Use 1 device inhala tion 4 times daily; Duration: 365 days incentive spirometer- patient might not need now- may have gotten on from [facility] UnknownGlimepiride 2 MGTAKE 1 TABLET BY MOUTH EVERY DAY WITH BREAKFAST OR THE FIRST MAIN MEAL OF THE DAY; Duration: 90UnknownOmeprazole 40 MGTAKE 1 CAPSULE BY MOUTH EVERY DAY; Duration: 90UnknownLatanoprost 0.005 %Ophthalmic; Duration: 30 DaysUnknownLagevrio 200 MG4 capsules Orally every 12 hrs; Duration: 5 day(s) 06/15/2024UnknownFurosemide 40 MG1 tablet Orally Once a day; Duration: 30 days with 20mg10/04/2023UnknownFerrous Sulfate 325 (65 Fe) MGTAKE 1 TABLET BY MOUTH TWICE A DAY; Duration: 90UnknownFarxiga 5 MG1 tablet Orally Once a day; Duration: 30 days08/19/2024UnknownEzetimibe 10 MGTAKE 1 TABLET BY MOUTH EVERY DAY Oral; Duration: 90 DaysUnknownEntresto 24-26 MG1 tablet Orally Twice a day; Duration: 30 days12/04/2024UnknownCardura 4 MG1/2 tab am and 1 tab pm Orally bid UnknownAspirin 81 81 MG1 tablet Orally Once a dayUnknownColchicine 0.6 MG1 tablet Orally At onset - repeat in 2 hours if needed; Duration: 30 days 04/13/2024UnknownCefdinir 300 MG1 capsules Orally once daily; Duration: 10 days 03/18/2025UnknownCarvedilol 25 MGTAKE 1 TABLET BY MOUTH TWICE A DAY; Duration: 90UnknownAnastrozole 1 MGTAKE 1 TABLET BY MOUTH EVERY DAY Oral; Duration: 90 DaysUnknownamLODIPine Besylate 5 MGTAKE 1 TABLET BY MOUTH TWICE A DAY; Duration: 90UnknownAllopurinol 100 MG1 tablet Orally Once a day; Duration: 90 daysUnknown Accu-Chek Softclix Lancets -USE TO TEST ONCE A DAY *DX E11.9*; Duration: UnknownAccu-Chek Fifi Plus -TEST BLOOD SUGAR ONCE DAILY DX: E11.65; Duration: 90 daysUnknownVitamin D (Ergocalciferol) 1.25 MG (20584 UT)1 capsule Orally weeklyUnknownPropafenone HCl ER 325 MGOral; Duration: 90 DaysUnknownProbiotic UnknownPotassium Chloride ER 10 MEQTAKE 1 TABLET BY MOUTH EVERY DAY; Duration: 90Unknown Social History Tobacco Use: Social History Observation Description Date Details (start date - stop date) Never Smoker NA - NA Tobacco Use/Smoking Question Answer Notes Patient is a nonsmoker AUDIT-C (Standard) Question Answer Notes Did you have a drink containing alcohol in the p ast year? No [id number] Vital Signs Weight 160.2 lbs 08/03/2025 Height 65 in 08/03/2025 Blood pressure systolic 142 mm Hg 08/03/20 25 Blood pressure diastolic 82 mm Hg 025 BMI 26.66 kg/m2 08/03/2025 Encounters Encounter Location Date Provider Diagnosis [id number] [place] [address] 08/03/2025 Gregorio Mcnamara Hyperlipemia E78.5 ; Hypertension I10 ; Congestive heart failure (CHF) I50.9 and Diabetes mellitus with diabetic neuropathy E11.40 Assessments Encounter Date Diagnosis (ICD Code) Assessment Notes Treatment Notes Treatment Clinical Notes Section Notes 08/03/2025 Hyperlipemia (ICD-10 - E78.5) 08/03/2025Hypertension (ICD-10 - I10)08/03/2025ongestive heart failure (CHF) (ICD-10 - I50.9)08/03/2025Diabetes mellitus with diabetic neuropathy (ICD-10 - E11.40) Plan Of Treatment Pending Test Test Name Order Date HEMOGLOBIN A1C (GLYCO) 08/03/2025 IRON, TOTAL 08/03/2025 LIPID PANEL (CHOL/TRIG/HDL/LDL) 08/03/20 25 VITAMIN D, 25 LEVEL (TOTAL) 08/03/2025 THYROID PANEL (T4/TSH/FREE T3) 5 CMP (COMP MET BLANCO) w/eGFR CKD-EPI 2024 CBC WITH DIFF 08/03/2025 Next Appt Details Provider Name:Gregorio Mcnamara, 01:15:00 PM, [address] [facility]ST[facility] [place], [address], Progress Notes * Vandana JAMISON ADOB:[birth year] (79 yo F)Acc No.[id number]:08/03/2025 Progress Note Patient: Vandana MULLINS :?Xavier Mcnamara ([facility]), MDDOB:1945???Age: 79 Y???Sex:FemaleDate:08/03/2025Phone:[phone]:[address] [place], [id number] In:11:17 AM ESTCheck Out:11:49 AM EST Subjective: * Chief Complaints: * 4 mon * HPI: ???General:?Yetr indfection under breast H - stable wiht meds ch - on meds DM - sugar has been up at times - but much better lately. * ROS: ???EENT:?hearing changes?denies.?visual changes?denies. non-healing mouth sores?denies.?swollen glands or neck lumps?denies.?hoarseness?denies.?sore throat?denies.?difficulty swallowing?denies.?nose bleeds?denies.?nasal congestion?denies.?ear ache?denies.?ear discharge denies.?ringing in ears?denies.?light sensitivity?denies.?eye pain?denies.?blurring?denies.?eye irritation?denies.?double vision?denies. vision loss?denies.?General/Constitutional:?Sweats:?Denies.?Fatigue?denies.?Sleep proble ms?denies.?Anorexia?denies.?Malaise?denies.?Weight loss?denies. Fatigue or Weakness?denies.?Fever or Chills?denies.?Cardiovascular:?Shortness of Breath w/lying flat?denies.?Lightheadedne ss/dizziness?denies.?Chest tightness/ heavy pressure?denies.?Swelling of legs, a nkles, or feet?denies.?Waking up with shortness of breath?denies.?Chest pain&#16 0;denies.?Palpitations?denies.?Weight gain?denies.?Respiratory:?Chronic or frequent cough?denies.?Coughing up blood&#1 60;denies.?Difficulty breathing?denies.?Productive cough?denies.?Snoring&#1 60;denies.?Shortness of breath that awakens from sleep (PND)?denies.?Chest pain? denies.?Sputum production?denies.?Wheezing?denies.?Musculoskeletal:?Joint pain?denies.?Joint Fluid?denies.?Backpain?denies.?Knee pain?denies.?Neck pain?denies.?Joint Stiffness?denies.?Muscle cramps?denies.?Weakness of muscles?denies.?Arthritis?denies.?Muscle aches?denies.?Pain in shoulder(s)?denies.?Swollen joints?denies.? * Active Problem List E78.5 Hyperlipemia Modified On:02/22/2023 Status:wcaqjrhfzK38.0Mitral regurgitation Modified On:01/24/2024 Status:kqkplhejdG61Xjfktkughcql Modified On:12/05/2023 Status:hlfagtpgzH39.9Intermittent claudication Modified On:02/22/2023 Status:wrjnaxntuG28.0AF (paroxysmal atrial fibrillation) Modified On:10/04/2023 Status:xvxvxzcdkX44.9Congestive heart failure (CHF) Modified On:12/05/2023 Status:tjggksbtnA83.9Gout Modified On:02/22/2023 Status:kwivwjcjuD31.919Breast cancer Modified On:02/22/2023 Status:sbbeqtnaoB34.0Pedal edema Modified On:02/22/2023 Status:xdulgafweN60.9Peripheral vascular disease Modified On:02/22/2023 Status:nqxjfxyghI26.7Bundle branch block, left Modified On:02/22/2023 Status:ciurfamxtO94.0Mitral insufficiency Modified On:02/22/2023 Status:ssrahscngK02.7Ventricular hypertrophy Modified On:02/22/2023 Status:ctzrtseocJ25.89Abnormal liver function Modified On:02/22/2023 Status:lbcrtcydpI25.12Ductal carcinoma in situ (DCIS) of left breast Modified On:02/22/2023 Status:gbcfokddbV56.40Diabetes mellitus with diabetic neuropathy Modified On:12/05/2023 Status:btfugupooY20.912Invasive ductal carcinoma of breast, left Modified On:02/22/2023 Status:cenwdigsp459.9Renal insufficiency Modified On:02/22/2023 Status:ctsblxawd352.47Ankle pain, chronic Modified On:02/22/2023 Status:eqenhxxzbU71Rzjxpjaqd (primary) hypertension Modified On:02/22/2023 Status:oougrdwywZ15.0Nonrheumatic mitral (valve) insufficiency Modified On:02/22/2023 Status:mkuoszxhxR09.0Paroxysmal atrial fibrillation Modified On:02/22/2023 Status:nxkdnmtupZ18.52Hypercalcemia Modified On:05/31/2023 Status:mzlzcjlamN34Vllnydgnvqq kidney failure Modified On:11/14/2023 Status:fuxdbdketM13.02Shortness of breath Modified On:10/08/2023 Status:appzwwdxlD88.0Low magnesium level Modified On:10/11/2023 Status:jkedqazopY71.42Hypomagnesemia Modified On:10/15/2023 Status:gdxoqvunlK57WD (high blood pressure) Modified On:10/15/2023 Status:bhqiegeqgX62.9Diabetes mellitus Modified On:12/05/2023 Status:kknnnvombM86.4Chronic kidney disease, stage 4 (severe) Modified On:11/27/2023 Status:clmqmsqumU17.2MGUS (monoclonal gammopathy of unknown significance) Modified On:02/25/2024 Status:confirmed * Medical History: * Surgical History: L umpectomy left breast Cataract OD [facility] with cardioversion Left Eye Lens Implant Dr. Forrester EGD 05/26/2024 * Hospitalization/Major Diagno stic Procedure: C ovid- hospital [facility] rehab hypertension * Family History: F ather: , diagnosed with Heart Disease. M other: , diagnosed with Diabetes, Heart Disease. B rother(s): , [place], diagnosed with Heart Disease. 1 brother(s) , 2 sister(s) . 2 son(s) , 2 daughter(s) - healthy. . * Social History: ???Tobacco Use:?Tobacco Use/Smoking?Patient is a?nonsmoker ???Drug/Alcohol:?AUDIT-C (Standard)?Did you have a drink containing alcohol in the past year??No ?Points?0 ?Interpretation?Negative * Medications: U nknownAccu-Chek Fifi Plus(Glucose Blood) - Strip TEST BLOOD SUGAR ONCE DAILY DX: E11.65 Accu-Chek Softclix Lancets(Lancets) - Miscellaneous USE TO TEST ONCE A DAY *DX E11.9* Allopurinol 100 MG Tablet 1 tablet Orally Once a day amLODIPine Besylate 5 MG Tablet TAKE 1 TABLET BY MOUTH TWICE A DAY Anastrozole 1 MG Tablet TAKE 1 TABLET BY MOUTH EVERY DAY Oral Aspirin 81(Aspirin) 81 MG Tablet Delayed Release 1 tablet Orally Once a day Cardura(Doxazosin Mesylate) 4 MG Tablet 1/2 tab am and 1 tab pm Orally bid Carvedilol 25 MG Tablet TAKE 1 TABLET BY MOUTH TWICE A DAY Cefdinir 300 MG Capsule 1 capsules Orally once daily Colchicine 0.6 MG Tablet 1 tablet Orally At onset - repeat in 2 hours if needed Entresto(Sacubitril-Valsartan) 24-26 MG Tablet 1 tablet Orally Twice a day Ezetimibe 10 MG Tablet TAKE 1 TABLET BY MOUTH EVERY DAY Oral Farxiga(Dapagliflozin Propanediol) 5 MG Tablet 1 tablet Orally Once a day Ferrous Sulfate 325 (65 Fe) MG Tablet TAKE 1 TABLET BY MOUTH TWICE A DAY Furosemide 40 MG Tablet 1 tablet Orally Once a day , Notes to Pharmacist: with 20mgGlimepiride 2 MG Tablet TAKE 1 TABLET BY MOUTH EVERY DAY WITH BREAKFAST OR THE FIRST MAIN MEAL OF THE DAY Incentive spirometer Use 1 device inhalation 4 times daily , Notes to Pharmacist: incentive spirometer- patient might not need now- may have gotten on from [facility] 200 MG Capsule 4 capsules Orally every 12 hrs Latanoprost 0.005 % Solution Ophthalmic Omeprazole 40 MG Capsule Delayed Release TAKE 1 CAPSULE BY MOUTH EVERY DAY Potassium Chloride ER 10 MEQ Tablet Extended Release TAKE 1 TABLET BY MOUTH EVERY DAY Probiotic Propafenone HCl ER 325 MG Capsule Extended Release 12 Hour Oral Vitamin D (Ergocalciferol) 1.25 MG (60846 UT) Capsule 1 capsule Orally weekly Medication List reviewed and reconciled with the patientUnknown Accu-Chek Fifi Plus(Glucose Blood) - Strip TEST BLOOD SUGAR ONCE DAILY DX: E11.65 Unknown Accu-Chek Softclix Lancets(Lancets) - Miscellaneous USE TO TEST ONCE A DAY *DX E11.9* Unknown Allopurinol 100 MG Tablet 1 tablet Orally Once a day Unknown amLODIPine Besylate 5 MG Tablet TAKE 1 TABLET BY MOUTH TWICE A DAY Unknown Anastrozole 1 MG Tablet TAKE 1 TABLET BY MOUTH EVERY DAY Oral Unknown Aspirin 81(Aspirin) 81 MG Tablet Delayed Release 1 tablet Orally Once a day Unknown Cardura(Doxazosin Mesylate) 4 MG Tablet 1/2 tab am and 1 tab pm Orally bid Unknown Carvedilol 25 MG Tablet TAKE 1 TABLET BY MOUTH TWICE A DAY Unknown Cefdinir 300 MG Capsule 1 capsules Orally once daily Unknown Colchicine 0.6 MG Tablet 1 tablet Orally At onset - repeat in 2 hours if needed Unknown Entresto(Sacubitril-Valsartan) 24-26 MG Tablet 1 tablet Orally Twice a day Unknown Ezetimibe 10 MG Tablet TAKE 1 TABLET BY MOUTH EVERY DAY Oral Unknown Farxiga(Dapagliflozin Propanediol) 5 MG Tablet 1 tablet Orally Once a day Unknown Ferrous Sulfate 325 (65 Fe) MG Tablet TAKE 1 TABLET BY MOUTH TWICE A DAY Unknown Furosemide 40 MG Tablet 1 tablet Orally Once a day , Notes to Pharmacist: with 20mgUnknown Glimepiride 2 MG Tablet TAKE 1 TABLET BY MOUTH EVERY DAY WITH BREAKFAST OR THE FIRST MAIN MEAL OF THE DAY Unknown Incentive spirometer Use 1 device inhalation 4 times daily , Notes to Pharmacist: incentive spirometer- patient might not need now- may have gotten on from [facility] Lagevrio 200 MG Capsule 4 capsules Orally every 12 hrs Unknown Latanoprost 0.005 % Solution Ophthalmic Unknown Omeprazole 40 MG Capsule Delayed Release TAKE 1 CAPSULE BY MOUTH EVERY DAY Unknown Potassium Chloride ER 10 MEQ Tablet Extended Release TAKE 1 TABLET BY MOUTH EVERY DAY Unknown Probiotic Unknown Propafenone HCl ER 325 MG Capsule Extended Release 12 Hour Oral Unknown Vitamin D (Ergocalciferol) 1.25 MG (85898 UT) Capsule 1 capsule Orally weekly Medication List reviewed and reconciled with the patient * Allergies: S tatins: muscle pain - Allergyno[Allergies Verified] Objective: * Vitals: W t:160.2lbs, Ht: 65 in, BP:142/82mm Hg, BMI:26.66Index, Ht-cm: 165.1 cm, Wt-k.67 kg. * Examination: ???Physical Exam: ?GENERAL:?well developed, well nourished, in no acute distress.?HEAD:?normocephalic/atraumatic.?EYES:?pupils equal, round and reactive to light, conjunctivae and sclerae normal.?EARS:?no deformity or lesion of external ear, canals and TM appear normal bilaterally, TM's intact, not inflamed with normal light reflex, hearing grossly normal to conversational speech.?NOSE:?no deformity, discharge, inflammation, or lesions. ?MOUTH:?mucous membranes moist, normal oropharynx and posterior pharynx without lesions or exudates, tongue normal, dentition normal.?NECK:?neck supple, no masses or palpable cervical nodes, trachea midline, thyroid without nodules, masses, tenderness, or enlargement.?CHEST:?no chest wall deformity, no chest wall tenderness. ?LUNGS:?normal respiratory effort and clear to auscultation, no wheezes, rales, or rhonchi, good air exchange.?CARDIO:?regular rate and rhythm, normal S1 and S2, nor murmur, rub, or gallop.?PULSES:?normal capillary refill.?ABDOMEN:?soft, non-distended, non-tender, no masses.?MUSCULOSKELETAL:?no deformity or scoliosis noted, normal range of motion, joints normal, no erythema, edema, effusion, or ecchymosis.?EXTREMITY:?no clubbing, cyanosis, edema, or deformity withnormal ROM in both upper and lower bilateral extremities.?NEUROLOGIC:?grossly normal.?SKIN:?no rashes, ulcerations, or suspicious lesions.?LYMPH NODES:?no cervical adenopathy, nodes normal.?MENTAL STATUS:?alert and oriented x3, normal mood and affect.? Assessment: * Assessment: 1.?Hyperlipemia - E78.5 (Primary)???2.?Hypertension - I10???3.?Congestive heart failure (CHF) - I50.9???4.?Diabetes mellitus with diabetic neuropathy - E11.40??? Plan: * Treatment: ?LAB: HEMOGLOBIN A1C (GLYCO) ?LAB: IRON, TOTAL ?LAB: LIPID PANEL (CHOL/TRIG/HDL/LDL) ?LAB: VITAMIN D, 25 LEVEL (TOTAL) ?LAB: THYROID PANEL (T4/TSH/FREE T3) ?LAB: CMP (COMP MET BLANCO) w/eGFR CKD-EPI ?LAB: CBC WITH DIFF2.?Hypertension?LAB: HEMOGLOBIN A1C (GLYCO) ?LAB: IRON, TOTAL ?LAB: LIPID PANEL (CHOL/TRIG/HDL/LDL) ?LAB: VITAMIN D, 25 LEVEL (TOTAL) ?LAB: THYROID PANEL (T4/TSH/FREE T3) ?LAB: CMP (COMP MET BLNACO) w/eGFR CKD-EPI ?LAB: CBC WITH DIFF3.?Congestive heart failure (CHF)?LAB: HEMOGLOBIN A1C (GLYCO) ?LAB: IRON, TOTAL ?LAB: LIPID PANEL (CHOL/TRIG/HDL/LDL) ?LAB: VITAMIN D, 25 LEVEL (TOTAL) ?LAB: THYROID PANEL (T4/TSH/FREE T3) ?LAB: CMP (COMP MET BLANCO) w/eGFR CKD-EPI ?LAB: CBC WITH DIFF4.?Diabetes mellitus with diabetic neuropathy?LAB: HEMOGLOBIN A1C (GLYCO) ?LAB: IRON, TOTAL ?LAB: LIPID PANEL (CHOL/TRIG/HDL/LDL) ?LAB: VITAMIN D, 25 LEVEL (TOTAL) ?LAB: THYROID PANEL (T4/TSH/FREE T3) ?LAB: CMP (COMP MET BLANCO) w/eGFR CKD-EPI ?LAB: CBC WITH DIFF * Procedure Codes: * Preventive Medicine: ??Screenings/Counseling:?BMI ACTION PLAN?Above Normal BMI Follow-up?Dietary management education, guidance, and counseling * * Sign off status: CompletedVisit Status:?CHK (Check Out) true * Provider: Otoniel Mcnamara (TTC)MD Date: 1 10/03/2024 Generated for Printing/Faxing/eTransmitting on:?08/06/2025 07:30 AM EST History and Physical Notes * HPI (History of Present Illness) CategorySub-CategoryDetailNotesCategory NotesGeneral Yetr indfection under breast H - stable wiht meds ch - on meds DM - sugar has been up at times - but much better lately Examination CategorySub-CategoryDetailNotesCategory NotesPhysical ExamGENERAL:well developed, well nourished, in no acute distressHEAD:normocephalic/atraumatic EYES:pupils equal, round and reactive to light, conjunctivae and sclerae normal EARS:no deformity or lesion of external ear, canals and TM appear normal bilaterally, TM's intact, not inflamed with normal light reflex, hearing grossly normal to conversational speechNOSE:no deformity, discharge, inflammation, or lesionsMOUTH:mucous membranes moist, normal oropharynx and posterior pharynx without lesions or exudates, tonguenormal, dentition normalNECK:neck supple, no masses or palpable cervical nodes, trachea midline, thyroid without nodules, masses, tenderness, or enlargementCHEST:no chest wall deformity, no chest wall tendernessLUNGS:normal respiratory effort and clear to auscultation, no wheezes, rales, or rhonchi, good air exchangeCARDIO:regular rate and rhythm, normal S1 and S2, nor murmur, rub, or gallopPULSES:normal capillary refillABDOMEN:soft, non-distended, non-tender, no massesRECTAL:MUSCULOSKELETAL:no deformity or scoliosis noted, normal range of motion, joints normal, no erythema, edema, effusion, or ecchymosisEXTREMITY:no clubbing, cyanosis, edema, or deformity with normal ROM in both upper and lower bilateral extremitiesNEUROLOGIC:grossly normalSKIN:no rashes, ulcerations, or suspicious lesionsLYMPH NODES:no cervical adenopathy, nodes normalMENTAL STATUS:alert and oriented x3, normal mood and affect
--- OUTSIDE RECORDS SUMMARY | 2025-08-06 07:30 | XMS_ITS | Clinical Summary ---
Author Organization [facility] Address [address] [place] [address] Care Team Providers Care Technical Specialist Cytology Name Role Phone Xavier Mcnamara MD Primary Care Provider [phone] Allergies Active AllergyReactionsCriticalityNoted ZkxbSusafjmhCwjlnos-Nko-Eqq Reductase IxsglvqvfnWiqhe22/01/2018 Other reaction(s): AOF Medications MedicationSigDispense QuantityRefillsLast FilledStart DateEnd DateStatus anastrozole (Arimidex) 1 mg chemo tablet anastrozole 1 mg tablet TAKE 1 TABLET BY MOUTH EVERY DAY07/09/2022ctive aspirin 81 mg chewable tablet in the morning.Active ergocalciferol (Vitamin D-2) 1.25 MG (86360 Units) capsule ergocalciferol (vitamin D2) 1,250 mcg (50,000 unit) capsule TAKE 1 CAPSULE BY MOUTH ONCE A WEEK ON MONDAYSActive metFORMIN (Glucophage) 500 mg tablet Take 500 mg by mouth in the morning and at bedtime.07/06/2022ctive omeprazole (PriLOSEC) [address] capsule Take 1 tablet by mouth in the morning.Active potassium chloride CR (Klor-Con) 10 mEq ER tablet potassium chloride ER 10 mEq tablet,extended release TAKE 1 TABLET BY MOUTH EVERY DAY09/22/2020Active carvedilol (Coreg) 25 mg tablet Take 25 mg by mouth with breakfast and with evening meal.Active ferrous sulfate 325 (65 Fe) MG tablet Take 1 tablet by mouth in the morning and at bedtime.11/01/2022ctive amLODIPine (Norvasc) 5 mg tablet Indications:Essential (primary) hypertensionTake 1 tablet (5 mg) by mouth 2 times daily. 180 tablet 310/14/2024Active propafenone SR (Rythmol SR) 325 mg 12 hr capsule Indications:Paroxysmal atrial fibrillation (CMS/HCC)TAKE 1 CAPSULE BY MOUTH EVERY 12 HOURS 180 capsule ctive ezetimibe (Zetia) 10 mg tablet Indications:Hyperlipidemia, unspecifiedTAKE 1 TABLET BY MOUTH EVERY DAY 90 tablet 5Active doxazosin (Cardura) 4 mg tablet Indications:Essential hypertensionTake 1 tablet (4 mg) by mouth at bedtime. 90 tablet 503/6Active Additional Information Patient taking differently:4 mg oral Nightly,2 mg in am 4mg in pm, Reported on 01/25/2025 doxazosin (Cardura) 2 mg tablet Indications:Essential hypertensionTAKE 1 TAB ONCE DAILY IN THE MORNING. TAKE IN ADDITION TO THE 4 MG TABLET FOR A TOTAL OF 6 MG DAILY 90 tablet 5Active furosemide (Lasix) 20 mg tablet Indications:Nonrheumatic mitral valve regurgitation,Chronic diastolic congestive heart failure (CMS/HCC),Pulmonary hypertension (CMS/HCC)TAKE 1 TABLET BY MOUTH EVERY OTHER DAY. TAKE ALTERNATING WITH THE 40 MG EVERY OTHER DAY. 45 tablet 5Active Additional Information Patient not taking.Reported on 01/25/2025 glimepiride (Amaryl) 2 mg tablet Take 2 mg by mouth before breakfast.Active Entresto 24-26 mg tablet Take 1 tablet by mouth Twice daily at 6am and 6pm.5Active furosemide (Lasix) 40 mg tablet Indications:Localized edemaTake 1 tablet (40 mg) by mouth in the morning. 90 tablet /6Active Active Problems ProblemNoted DateDiagnosed NuxjOjevhnthttnyj53/26/2024Monoclonal gammopathy of unknown significance (MGUS)04/17/2024Status post biopsy of yvyzwt2104/17/2024cute exacerbation of CHF (congestive heart failure)02/19/2024cute hypoxemic respiratory htniiyk9202/19/2024nemia of renal wzkofff3602/19/2024OVID-19002/19/2024 Yjudecqoddrznm48/29/2024Nontraumatic intracerebral iuktenlhws88/29/2024neumonia 02/19/20246721Pcysrdjjcxw20/29/2024ulmonary gloikbi3602/19/2024Secondary kjvnhuejbatibmsvcbe09/29/7760Dzxolo58/29/2024ge-related nuclear cataract of left eye10/31/2023rimary open angle glaucoma (POAG) of both eyes, mild stage 10/31/2023Stage 3 chronic kidney /Hypercalcemia Type 2 diabetes erhkkyvv35/01/2022Other specified menopausal and perimenopausal ooeuoxfpf94/29/2021Hypertensive weqkxpib54/03/2019Mitral valve cturveoierdco06/03/2019Paroxysmal atrial iggkaaguxvhf98/03/2019Malignant neoplasm of upper-outer quadrant of left breast in female, estrogen receptor weogtjsv49/20/2018Congestive heart pemwzjr9401/31/2018History of intracranial hemorrhage Encounters DateTypeDepartmentCare AfmuUwetjehcngj02/20/2025Telephone [facility] [address] [place] [phone] JaeElyssa sotelo MA 07/07/2025Orders Only [facility] [address] [place] [phone] Provider, MD Homero from Last 3 Months Family History Medical HistoryRelationNameCommentsCoronary artery diseaseBrotherCoronary artery diseaseFatherCoronary artery diseaseMotherCoronary artery diseaseSisterRelation NameStatusCommentsBrotherDeceasedFatherDeceasedMotherDeceasedSisterAlive Social History Tobacco UseTypesPacks/DayYears UsedDateSmoking Tobacco: NeverSmokeless Tobacco: Never Tobacco Cessation:Counseling Given: Not Answered Alcohol UseStandard Drinks/WeekCommentsNot Currently0 (1 standard drink = 0.6 oz pure alcohol)UT Safety & EnvironmentAnswerDate RecordedFear of Current or Ex-PartnerNot on file11/14/2023Emotionally AbusedNot on file11/14/2023hysically AbusedNot on file11/14/2023Sexually AbusedNot on file11/14/2023hysically or Sexually AbusedNot on file02/22/2024CommentsUnknownSex and Gender InformationValueDate RecordedSex Assigned at EapyrCujdcr50/02/2025 8:55 AM EDT Legal GpmBvqwgx95/30/2022 12:05 AM EDTGender JxmekwmzWhlxxp62/02/2025 8:55 AM EDTSexual OrientationHeterosexual or Hsmsdejv63/02/2025 8:55 AM EDT Last Filed Vital Signs Vital SignReadingTime TakenCommentsBlood Lwukemdp800/67001/25/2025 11:28 AM EDT Naanu933401/25/2025 11:28 AM EDTTemperature--Respiratory Yroy930310/18/2023 11:23 AM ESTOxygen Wpsezmwiib45%01/25/2025 11:28 AM EDTInhaled Oxygen Concentration-- Orbief05.5 kg (151 lb)01/25/2025 11:28 AM IVRPrayvl772.1 cm (5' 5 )01/25/2025 11:28 AM EDTBody Mass Index25.13001/25/2025 11:28 AM EDT Plan of Treatment DateTypeDepartmentCare Team (Latest Contact Info)Dqcbjflnfwn94/21/2025 2:45 PM ESTOffice Visit [facility] [address] [phone] Erick Sandoval MD [address] [facility] [place] [address] Health MaintenanceDue DateLast DoneCommentsDiabetes: Hemoglobin A1C1944 Medicare Annual Wellness (AWV)5COVID-19 Vaccine (#1)1949Diabetes: Retinopathy Sbkuflqov39/18/1955Depression Kqcmqtmwf46/18/1957Diabetes: Urine Protein Dxszwypqi26/18/1964Adult Iyufjym7410/10/1966Zoster Vaccines (1 of 2) 1994Fall Risk Bysfyethv95/18/2010Influenza Vaccine (#1)2025 07/11/2022, 07/07/2021, 06/12/2021, Additional history existsPneumococcal Vaccine: 50+ VibdbYewavepgn14/19/2022, 06/17/2018, 07/09/2017HIB VaccinesAged OutNo longer eligible based on patient's age to complete this topicHPV Vaccines Aged OutNo longer eligible based on patient's age to complete this topicIPV VaccinesAged OutNo longer eligible based on patient's age to complete this topic Meningococcal B VaccineAged OutNo longer eligible based on patient's age to complete this topicMeningococcal VaccineAged OutNo longer eligible based on patient's age to complete this topicRotavirus VaccinesAged OutNo longer eligible based on patient's age to complete this topic Procedures Procedure NamePriorityDate/TimeAssociated DiagnosisCommentsCOMPLETE TRANSTHORACIC ECHO (TTE) W/WO IMAGING AGENT, STRAIN, 3D, BUBBLE STUDYRoutine 07/06/2025 8:38 AM EDTfrom Last 3 Months Results * Complete Echo (TTE) w/wo Imaging Agent, Strain, 3D, Bubble Study (07/06/2025 8:38 AM EDT)Anatomical RegionLateralityModalityUltrasound Narrative Authorizing ProviderResult TypeResult StatusHistorical Provider MDCV ECHO PROCEDURESFinal Result from Last 3 [place] [address] Care Teams Team MemberRelationshipSpecialtyStart Xavier Mcnamara MD [address] [facility] [place] [address] [facility]05/08/22
--- OUTSIDE RECORDS SUMMARY | 2025-08-06 07:31 | XMS_ITS | Patient Health Record ---
Author Organization [facility] in [place] Address [address] [place] [address] Care Team Providers Care Conference Services Coordinator Name Role Phone Gregorio Mcnamara Primary Care Provider Allergies Allergen (clinical drug ingredient) Drug/Non Drug Allergy documented on EMR Reaction Allergy Type Onset Date Status Substance with 9-ukwvyvc-3-m ethylglutaryl-coenzyme A reductase inhibitor mechanism of action (substance) Statins muscle pain Drug Allergy Active Results Component Value Reference Range Notes CBC no Diff (Hemogram) Reviewed date:03/15/2025 08:16:06 PM Interpretation: Performing Lab: Notes/Report: [facility] , White Blood Count 12.2 4.0-11.0 10 3/uL Red Blood Count4.564.20-5.40 10 6/kIRubrizxidr19.812.0-16.0 g/yEOlsyjssemj98.7 36.0-48.0 %Mean Corpuscular Qlsvce19.481.0-99.0 fLMean Corpuscular Hemoglobin 30.326.7-34.0 pgMean Corpuscular HGB Conc33.129.9-35.2 g/dLRed Cell Distribution Width13.311.0-15.0 %Platelet Dtmil113397-678 10 3/uLMean Platelet Jhutrj12.99.5- 13.5 fLPerforming Lab:see noteML - [facility] LBImmunofixation, Urine Reviewed date:03/17/2025 09:29:40 PM Interpretation: Performing Lab: Notes/Report: [facility] ,Immunofixation, UrineComment. Bence Morton Protein positive; kappa type. Performed at: [address] [id number] Career Guidance Technician: Yrn Maher PhD, Phone: [phone] Performing Lab:see note - [facility] LBIFE, PE and FLC, Serum Reviewed date:03/17/2025 09:29:40 PM Interpretation: Performing Lab: Notes/Report: [facility] ,Immunoglobulin G, Qn, Skrtk494063-0998 mg/dLImmunoglobulin A, Qn, Inwyi81065- 422 mg/dLImmunoglobulin M, Qn, Oqzay15229-131 mg/dLProtein, Total6.96.0-8.5 g/dL Albumin3.62.9-4.4 g/vCPjohl-7-Ulucrlhs3.30.0-0.4 g/xIJnfur-9-Lapofjrb0.90.4-1.0 g/dLBeta Globulin1.00.7-1.3 g/dLGamma Globulin1.20.4-1.8 g/dLM-Spike0.5Not Observed g/dLGlobulin, Total3.32.2-3.9 g/dLA/G Ratio1.10.7-1.7Immunofixation Result, SerumComment. Immunofixation shows IgM monoclonal protein with kappa light chain specificity. ASTON also shows an asymmetrical lambda. Please note:Comment. Protein electrophoresis scan will follow via computer, mail, or parking regulation enforcement officer delivery. Free [place] Lt Chains,S52.83.3-19.4 mg/LFree Lambda Lt Chains,S23.95.7-26.3 mg/L [place]/Lambda Ratio,S2.210.26-1.65 Performed at: [address] [id number] Career Guidance Technician: Yrn Maher PhD, Phone: [phone] Performing Lab:see note - [facility] LBCA echo doppler complete Reviewed date:07/06/2025 07:53:09 PM Interpretation: Performing Lab: Notes/Report: Source Facility: [place] [address] [place] [address] Cardiology Report Signed Patient: ANDREW JAMISON MR#: [id number] : 1945 Acct:[id number] Age/Sex: 79 / F ADM Date: 07/06/25 Loc: CARD Attending Dr: GISSELL SANDOVAL Ordering Physician: GISSELL SANDOVAL Date of Service: 07/06/25 Procedure(s): CA echo doppler complete Accession Number(s): [id number] cc: Xavier Mcnamara M.D.; GISSELL SANDOVAL Patient Name: ANDREW JAMISON MR#: [id number] : 1945 Exam Date: 07/06/2025 Ordering Doctor: DR GISSELL SANDOVAL M.D. ECHOCARDIOGRAM REPORT PROCEDURE: CA ECHO DOPPLER COMPLETE INDICATIONS: Atrial fibrillation, pulmonary hypertension, heart failure COMPARISON: None. DESCRIPTION: COMPLETE ECHOCARDIOGRAM Real-time transthoracic echocardiography with 2D, M-mode, spectral and color flow Doppler performed. QUALITY: Technical quality was good. LEFT VENTRICLE: Normal chamber size. Mild concentric left ventricular hypertrophy. Global left ventricular systolic function is normal. LV EF: Estimated left ventricular ejection fraction is 60-65%. DIASTOLIC: Not adequately assessed due to heart rhythm. ATRIAL SEPTUM: LEFT ATRIUM: Moderate dilatation. RIGHT ATRIUM: Moderate dilatation. RIGHT VENTRICLE: Normal chamber size. Normal right ventricular systolic function. TRICUSPID VALVE: Normal mobility and thickness. No stenosis with mild regurgitation. Mild pulmonary hypertension. RVSP 37 mmHg MITRAL VALVE: Mildly thickened with normal mobility. No evidence of mitral valve stenosis. Mild mitral annular calcification. Moderate mitral regurgitation. AORTIC VALVE: Normal trileaflet appearance. Mildly calcified aortic valve. Normal leaflet mobility. No evidence of aortic valve stenosis. Trivial aortic regurgitation. AORTIC ROOT: Normal diameter and appearance, measuring 2.6 cm. The ascending aorta is normal in size measuring 3.1 cm. PULMONIC VALVE: Normal thickness and mobility. No stenosis. Trivial regurgitation. PERICARDIUM: No evidence of pericardial effusion. IVC: Collapses with inspiration. Normal size. PLEURA: CONCLUSION: 1. Mild concentric left ventricular hypertrophy with normal systolic function. Estimated LVEF is 60 to 65%. 2. Normal right ventricular size and systolic function. 3. Moderate biatrial dilatation. 4. Moderate mitral regurgitation. 5. Mild tricuspid regurgitation. 6. Mildly elevated right-sided pressures. Adult Echocardiography Procedure Report Left Ventricle LVEDD (3.7 - 5.6 cm): 4.25 cm LVESD (2.2 - 4.0 cm): 2.81 cm LVIVS thickness (0.6 - 1.2 cm): 1.12 cm LVPW thickness (0.5 - 1.0 cm): 1.05 cm e': 0.08 m/s E - e': 13.87 LVOT Max Gradient: 4.77 mm[Hg] LVOT Area (cm2): 1.09 m/s Peak Velocity (LVOT): 1.09 m/s Mean Velocity (LVOT): 0.69 m/s LVOT Diameter 1.65 cm Left Ventricular Ejection Fraction: 60-65 % Left Atrium LA Volume Index (2D A2C): 41.01 ml/m2 Left Atrium Systolic Dimension: 4.23 cm Mitral Valve Mitral Valve E-Wave Peak Velocity: 1.07 m/s Right Ventricle RV Internal Diastolic Dimension: 3.57 cm Aorta AO Root Diam: 2.61 cm Ascending Ao Diam: 3.12 cm Aortic Valve AoV Area (Peak Abhijit): 1.60 cm2, 1.60 cm2 AoV Area (VTI): 1.48 cm2, 1.48 cm2 Peak Velocity(Antegrade Flow): 1.47 m/s Peak Gradient(Antegrade Flow): 8.61 mm[Hg] Mean Velocity(Antegrade Flow): 1.00 m/s Mean Gradient(Antegrade Flow): 4.70 mm[Hg] Velocity Time Integral: 34.75 cm Tricuspid Valve Peak Velocity (Regurgitant Flow): 2.93 m/s, 2.76 m/s, 2.82 m/s Pulmonic Valve Mean Gradient: 1.78 mm[Hg], 2.41 mm[Hg] Mean Velocity: 0.61 m/s, 0.74 m/s Peak Velocity: 0.94 m/s Peak Gradient: 3.22 mm[Hg], 3.88 mm[Hg] Right Atrium Right Atrium Systolic Pressure: 37.76 ml, 37.76 ml Dictated by: Gissell Sandoval M.D. on 07/06/2025 at 19:25 Approved by: Gissell Sandoval M.D. on 07/06/2025 at 19:29 Dictated By: GISSELL SANDOVAL Signed By: 07/06/251929 DD/ 28 TD/TT: Dye House Worker:Urine Culture - [facility] Reviewed date:03/17/2025 09:29:40 PM Interpretation: Performing Lab: Notes/Report: [facility] ,Urine Culture - [facility]MCSee Below For Report Urine Culture - [facility] Testing performed at [facility] O:PROMIR Isolated Urine Culture - [facility] Hertel Count Organism: 1.1 Antibiotic Interpretation ARLIN Status Urine Culture - [id number] [place] [address] Urine Culture - [facility] Testing performed at [facility] O:PROMIR Isolated Urine Culture - [facility] Hertel Count Organism: 1.1 Antibiotic Interpretation ARLIN Status Urine Culture - [facility]MCSee Below For Report Urine Culture - [facility] Testing performed at [facility] O:PROMIR Isolated Urine Culture - [facility] Hertel Count Organism: 1.1 Antibiotic Interpretation ARLIN Status Urine Culture - [facility]MCSee Below For Report Urine Culture - [facility] Testing performed at [facility] O:PROMIR Isolated Urine Culture - [facility] Hertel Count Organism: 1.1 Antibiotic Interpretation ARLIN Status Urine Culture - [facility]>100,000 Urine Culture - [facility] Testing performed at [facility] O:PROMIR Isolated Urine Culture - [facility] Hertel Count Organism: 1.1 Antibiotic Interpretation ARLIN Status Urine Culture - [facility]MCSee Below For Report Urine Culture - [facility] Testing performed at [facility] O:PROMIR Isolated Urine Culture - [facility] Hertel Count Organism: 1.1 Antibiotic Interpretation ARLIN Status Urine Culture - FRMCAmikacin S F Urine Culture - [facility] Testing performed at [facility] O:PROMIR Isolated Urine Culture - [facility] Hertel Count Organism: 1.1 Antibiotic Interpretation ARLIN Status Urine Culture - FRMCAmoxicillin/Clavulanate S F Urine Culture - [facility] Testing performed at [facility] O:PROMIR Isolated Urine Culture - [facility] Hertel Count Organism: 1.1 Antibiotic Interpretation ARLIN Status Urine Culture - FR[facility]CAmpicillin S F Urine Culture - [facility] Testing performed at [facility] O:PROMIR Isolated Urine Culture - [facility] Hertel Count Organism: 1.1 Antibiotic Interpretation ARLIN Status Urine Culture - FRMCAztreonam S F Urine Culture - [facility] Testing performed at [facility] O:PROMIR Isolated Urine Culture - [facility] Hertel Count Organism: 1.1 Antibiotic Interpretation ARLIN Status Urine Culture - FRMCCeftazidime S F Urine Culture - [facility] Testing performed at [facility] O:PROMIR Isolated Urine Culture - [facility] Hertel Count Organism: 1.1 Antibiotic Interpretation ARLIN Status Urine Culture - FRMCCeftazidime/Avibactam S F Urine Culture - [facility] Testing performed at [facility] O:PROMIR Isolated Urine Culture - [facility] Hertel Count Organism: 1.1 Antibiotic Interpretation ARLIN Status Urine Culture - FRMCCeftolozane/Tazobactam S F Urine Culture - [facility] Testing performed at [facility] O:PROMIR Isolated Urine Culture - [facility] Hertel Count Organism: 1.1 Antibiotic Interpretation ARLIN Status Urine Culture - FR[facility]CCiprofloxacin S F Urine Culture - [facility] Testing performed at [facility] O:PROMIR Isolated Urine Culture - [facility] Hertel Count Organism: 1.1 Antibiotic Interpretation ARLIN Status Urine Culture - FRMCErtapenem S F Urine Culture - [facility] Testing performed at [facility] O:PROMIR Isolated Urine Culture - [facility] Hertel Count Organism: 1.1 Antibiotic Interpretation ARLIN Status Urine Culture - FRMCGentamicin S F Urine Culture - [facility] Testing performed at [facility] O:PROMIR Isolated Urine Culture - [facility] Hertel Count Organism: 1.1 Antibiotic Interpretation ARLIN Status Urine Culture - FRMCLevofloxacin S F Urine Culture - [facility] Testing performed at [facility] O:PROMIR Isolated Urine Culture - [facility] Hertel Count Organism: 1.1 Antibiotic Interpretation ARLIN Status Urine Culture - FRMCMeropenem S F Urine Culture - [facility] Testing performed at [facility] O:PROMIR Isolated Urine Culture - [facility] Hertel Count Organism: 1.1 Antibiotic Interpretation ARLIN Status Urine Culture - FRMCMeropenem/Vaborbactam S F Urine Culture - [facility] Testing performed at [facility] O:PROMIR Isolated Urine Culture - [facility] Hertel Count Organism: 1.1 Antibiotic Interpretation ARLIN Status Urine Culture - FRMCTobramycin S F Urine Culture - [facility] Testing performed at [facility] O:PROMIR Isolated Urine Culture - [facility] Hertel Count Organism: 1.1 Antibiotic Interpretation ARLIN Status Urine Culture - FRMCAmpicillin/Sulbactam S F Urine Culture - [facility] Testing performed at [facility] O:PROMIR Isolated Urine Culture - [facility] Hertel Count Organism: 1.1 Antibiotic Interpretation ARLIN Status Urine Culture - FR[facility]CCefazolin S F Urine Culture - [facility] Testing performed at [facility] O:PROMIR Isolated Urine Culture - [facility] Hertel Count Organism: 1.1 Antibiotic Interpretation ARLIN Status Urine Culture - FR[facility]CCefepime S F Urine Culture - [facility] Testing performed at [facility] O:PROMIR Isolated Urine Culture - [facility] Hertel Count Organism: 1.1 Antibiotic Interpretation ARLIN Status Urine Culture - FRMCCeftriaxone S F Urine Culture - [facility] Testing performed at [facility] O:PROMIR Isolated Urine Culture - [facility] Hertel Count Organism: 1.1 Antibiotic Interpretation ARLIN Status Urine Culture - FR[facility]CCefuroxime S F Urine Culture - [facility] Testing performed at [facility] O:PROMIR Isolated Urine Culture - [facility] Hertel Count Organism: 1.1 Antibiotic Interpretation ARLIN Status Urine Culture - FRMCPiperacillin/Tazobactam S F Urine Culture - [facility] Testing performed at [facility] O:PROMIR Isolated Urine Culture - [facility] Hertel Count Organism: 1.1 Antibiotic Interpretation ARLIN Status Urine Culture - FRMCTrimethoprim/Sulfa S F Urine Culture - [facility] Testing performed at [facility] O:PROMIR Isolated Urine Culture - [facility] Hertel Count Organism: 1.1 Antibiotic Interpretation ARLIN Status Performing Lab:see note ML - [facility] LB SEE REPORT - Radioisotope Technologist Id information not found for OBX-specific promotions producer legend PTH, Intact Reviewed date:03/17/2025 09:29:40 PM Interpretation: Performing Lab: Notes/Report: [facility] ,PTH, Rafzol7032-55 pg/mL Performed at: - [facility] [address] [id number] Career Guidance Technician: Yrn Maher PhD, Phone: [phone] Performing Lab:see note - [facility] LBURINE T PROTEIN CREAT RATIO Reviewed date:03/15/2025 08:16:06 PM Interpretation: Performing Lab: Notes/Report: [facility] ,Total Protein Urine Maabgo934.7<=11.9 mg/dLCreatinine Urine Kvwscr823.6520.00- 300.00 mg/dLProtein Creatinine Ratio Urine0.84Performing Lab:see note - [facility] LBURIC ACID SERUM Reviewed date:03/15/2025 08:16:06 PM Interpretation: Performing Lab: Notes/Report: [facility] ,Uric Acid9.32.6-6.0 mg/dLPerforming Lab:see noteML - [facility] LBUA RANDOM W or MICROSCOPIC Reviewed date:03/15/2025 08:16:06 PM Interpretation: Performing Lab: Notes/Report: [facility] ,Color UrineYELLOWYELLOWClarity UrineSL CLOUDYCLEARSpecific [place] Urine1.020 1.005-1.025pH Urine6.05.0-9.0Protein Zojtj914QME/TRACE mg/dLGlucose Urine UA NEGATIVENEGATIVE mg/dLBilirubin UrineNEGATIVENEGATIVEKetones UrineNEGATIVE NEGATIVE mg/dLBlood UrineSMALLNEGATIVENitrite UrineNEGATIVENEGATIVEUrobilinogen Urine0.20.2-1.0 EU/dLLeukocyte Esterase UrineMODERATENEGATIVEWBC Jsfwv11-65BGXF SEEN #/HPFRBC Urine2-50-2 #/HPFBacteria UrineMODERATENONE SEEN #/HPFMucus Urine NONE SEENNONE SEENSquamous Epithelial Cell UrineMANYNONE/RARE #/LPFCrystals Seen?None SeenNone Seen #/HPFCast Seen?NONE SEENNONE SEEN #/LPFUrine Culture IndicatedYES-FRMCPerforming Lab:see noteML - [facility] LBRENAL FUNCTION PANEL Reviewed date:03/15/2025 08:16:06 PM Interpretation: Performing Lab: Notes/Report: [facility] ,Yipdta510934-089 mmol/LPotassium4.33.5-5.1 mmol/ZPbilxqnj74066-562 mmol/LCarbon Qqxocps93.021.0-32.0 mmol/LAnion Gap11.7Jcdtdth74251-798 mg/dLBlood Urea Dzhkkupb06.07.0-18.0 mg/dLCreatinine2.020.55-1.02 mg/dLEstimated GFR ( Vnwrvrl81>=60 mL/min/1.73m 2Estimated GFR (Non- Ame24>=60 mL/min/1.73m 2 BUN Creatinine Ratio23.3Ngkfrhu3.48.5-10.1 mg/dLPhosphorus3.22.6-4.7 mg/dL Albumin Level3.63.4-5.0 g/dLPerforming Lab:see noteML - [facility] LB MAGNESIUM Reviewed date:03/15/2025 08:16:06 PM Interpretation: Performing Lab: Notes/Report: [facility] ,Magnesium2.01.8-2.4 mg/dLPerforming Lab:see noteML - [facility] LBCA echo doppler complete Reviewed date:12/30/2024 08:35:32 PM Interpretation: Performing Lab: Notes/Report: Source Facility: [place] [address] Cardiology Report Signed Patient: ANDREW JAMISON MR#: [id number] : 1945 Acct:[id number] Age/Sex: 79 / F ADM Date: 12/30/24 Loc: CARD Attending Dr: RAHEEL WRIGHT APRN Ordering Physician: RAHEEL WRIGHT APRN Date of Service: 12/30/24 Procedure(s): CA echo doppler complete Accession Number(s): [id number] cc: Xavier Mcnamara M.D.; RAHEEL WRIGHT APRN Patient Name: ANDREW JAMISON MR#: [id number] : 1945 Exam Date: 12/30/2024 Ordering Doctor: RAHEEL WRIGHT ACCOUNTING SYSTEM EXPERT ECHOCARDIOGRAM REPORT PROCEDURE: CA ECHO DOPPLER COMPLETE INDICATIONS: Mitral valve regurgitation, hypertension, diabetes COMPARISON: None. DESCRIPTION: COMPLETE ECHOCARDIOGRAM Real-time transthoracic echocardiography with 2D, M-mode, spectral and color flow Doppler performed. QUALITY: Technical quality was good. LEFT VENTRICLE: Normal chamber size. Normal left ventricular wall thickness. Normal systolic function. LV EF: Normal left ventricular ejection fraction, (55%). DIASTOLIC: Grade II diastolic dysfunction. ATRIAL SEPTUM: Visually appears intact. LEFT ATRIUM: Moderate dilatation. RIGHT ATRIUM: Mild dilatation. RIGHT VENTRICLE: Normal chamber size. Normal right ventricular systolic function. TRICUSPID VALVE: Normal mobility and thickness. No stenosis with mild to moderate regurgitation. Doppler studies reveal moderately (45-60) elevated right sided pressures. RVSP 55 mmHg MITRAL VALVE: Normal mobility and thickness. No evidence of mitral valve stenosis. Moderate mitral regurgitation. AORTIC VALVE: Normal trileaflet appearance. Thickened aortic valve. Normal leaflet mobility. No evidence of aortic valve stenosis. No aortic regurgitation. AORTIC ROOT: Normal diameter and appearance. Ascending aorta is normal in size. PULMONIC VALVE: Normal thickness and mobility. No stenosis. No regurgitation. PERICARDIUM: No evidence of pericardial effusion. IVC: IVC is dilated (2.4 cm), does not collapse. PLEURA: CONCLUSION: 1. Normal left ventricular size and systolic function. Estimated LVEF is 55%. 2. Normal right ventricular size and systolic function. 3. Grade 2 diastolic dysfunction. 4. Mild to moderate biatrial dilatation. 5. Moderate mitral regurgitation. 6. Mild to moderate tricuspid regurgitation. 7. Moderately elevated right-sided pressures. RVSP is 55 mmHg. Adult Echocardiography Procedure Report Left Ventricle LVEDD (3.7 - 5.6 cm): 4.55 cm LVESD (2.2 - 4.0 cm): 2.43 cm LVIVS thickness (0.6 - 1.2 cm): 0.84 cm LVPW thickness (0.5 - 1.0 cm): 0.86 cm e': 0.06 m/s E - e': 16.07 LVOT Max Gradient: 2.38 mm[Hg] LVOT Area (cm2): 0.77 m/s Peak Velocity (LVOT): 0.77 m/s Mean Velocity (LVOT): 0.50 m/s LVOT Diameter 1.92 cm Left Atrium LA Volume Index (2D A2C): 52.34 ml/m2 Left Atrium Systolic Dimension: 3.89 cm Mitral Valve MV E to A Ratio: 2.28 Mitral Valve A-Wave Peak Velocity: 0.43 m/s Mitral Valve E-Wave Peak Velocity: 0.99 m/s Right Ventricle Aorta AO Root Diam: 2.60 cm Ascending Ao Diam: 2.80 cm Aortic Valve AoV Area (Peak Abhijit): 1.74 cm2, 1.74 cm2 AoV Area (VTI): 1.96 cm2, 1.96 cm2 Peak Velocity(Antegrade Flow): 1.29 m/s Peak Gradient(Antegrade Flow): 6.63 mm[Hg] Mean Velocity(Antegrade Flow): 0.85 m/s Mean Gradient(Antegrade Flow): 3.38 mm[Hg] Velocity Time Integral: 27.86 cm Tricuspid Valve Peak Velocity (Regurgitant Flow): 3.16 m/s, 2.87 m/s, 3.13 m/s Pulmonic Valve Mean Gradient: 2.20 mm[Hg] Mean Velocity: 0.69 m/s Peak Velocity: 1.02 m/s, 0.99 m/s Peak Gradient: 3.91 mm[Hg], 4.13 mm[Hg] Right Atrium Right Atrium Systolic Pressure: 37.73 ml, 37.73 ml Dictated by: Gissell Sandoval M.D. on 12/30/2024 at 18:51 Approved by: Gissell Sandoval M.D. on 12/30/2024 at 18:55 Dictated By: GISSELL SANDOVAL Signed By: 12/30/241855 DD/ 54 TD/TT: Dye House Worker:MM tomosynthesis screening BI Reviewed date:08/31/2024 08:20:02 PM Interpretation: Performing Lab: Notes/Report: Source Facility: [place] [address] Mammography Report Signed Patient: ANDREW JAMISON MR#: [id number] : 1945 Acct:[id number] Age/Sex: 78 / F ADM Date: 08/31/24 Loc: MAMMO Attending Dr: CASSIDY LENZ Ordering Physician: CASSIDY LENZ Results: Date of Service: 08/31/24 Follow Up: Procedure(s): MM tomosynthesis screening BI Accession Number(s): [id number] cc: CASSIDY LENZ ; Xavier Mcnamara M.D. Patient Name: ANDREW JAMISON MR#: [id number] : 1945 Exam Date: 08/31/2024 Ordering Doctor: DR. CASSIDY LENZ M.D. RADIOLOGY REPORT PROCEDURE: MM TOMOSYNTHESIS SCREENING BI COMPARISON: MM TOMOSYNTHESIS SCREENING BI, 08/28/2023. MG MAMM DIAGNOSTIC 3D GISELE CAD, 01/05/2022. MG MAMM DIAGNOSTIC 3D GISELE CAD, 01/04/2021. MG MAMM SCREEN GISELE W CAD, 08/19/2012. INDICATIONS: Screening Calculator Name NCI Breast Cancer Risk Assessment Tool 5 Year Breast Cancer Risk n/a% Lifetime Breast Cancer Risk n/a% Personal Breast Cancer Yes, left, infiltrating ductal carcinoma Personal Ovarian Cancer No Treatments lumpectomy and radiation Family Cancers None LOCATION: [facility] BREAST COMPOSITION: There are scattered areas of fibroglandular density. FINDINGS: DIAGNOSTIC CATEGORY 2--BENIGN FINDING: RIGHT BREAST: No significant suspicious finding. Scattered benign-appearing calcifications are present. No significant change has occurred. LEFT BREAST: No significant suspicious finding. Scattered benign-appearing calcifications are present. Stable postsurgical changes and numerous surgical clips. No significant change has occurred. RECOMMENDATIONS: ROUTINE MAMMOGRAM AND CLINICAL EVALUATION IN 12 MONTHS. PLEASE NOTE: A NORMAL MAMMOGRAM DOES NOT EXCLUDE THE POSSIBILITY OF BREAST CANCER. A CLINICALLY SUSPICIOUS PALPABLE LUMP SHOULD BE BIOPSIED. Dictated by: Tray Higgins M.D. on 08/31/2024 at 15:47 Approved by: Tray Higgins M.D. on 08/31/2024 at 15:55 Dictated By: Tray Higgins M.D. Signed By: 08/31/24 1556 DD/ 1555 TD/TT: Dye House Worker:VITAMIN D 25 [place] Reviewed date:03/15/2025 08:16:06 PM Interpretation: Performing Lab: Notes/Report: [facility] ,Vitamin D39.1 <20 ng/mL Vit D deficient 20-<30 ng/mL Vit D insufficient 30-100 ng/mL Vit D sufficient >100 ng/mL Potential Toxicity Performing Lab:see noteML - [facility] LBFERRITIN Reviewed date:03/15/2025 08:16:06 PM Interpretation: Performing Lab: Notes/Report: [facility] ,Ribkluvt658.08.0-252.0 ng/mLPerforming Lab:see noteML - [facility] LBPROF CHEM 8 (BAS METB) Reviewed date:12/22/2024 04:54:01 PM Interpretation: Performing Lab: Notes/Report: [facility] ,Ntzosq655650-765 mmol/LPotassium4.43.5-5.1 mmol/NMkjjjrtj61754-949 mmol/LCarbon Igqpors08.921.0-32.0 mmol/LAnion Gap14.6Puxmjey82065-930 mg/dLBlood Urea Jcvnocrj77.07.0-18.0 mg/dLCreatinine2.010.55-1.02 mg/dLEstimated GFR ( Nuouilm14>=60 mL/min/1.73m 2Estimated GFR (Non- Ame24>=60 mL/min/1.73m 2 BUN Creatinine Ratio19.8Ylaaamz4.88.5-10.1 mg/dLPerforming Lab:see noteML - [facility] LBPROF 14(COMP METB) Reviewed date:08/25/2024 08:51:46 PM Interpretation: Performing Lab: Notes/Report: [facility] ,Gkyfgu512838-682 mmol/LPotassium4.13.5-5.1 mmol/JDnalusxe27382-823 mmol/LCarbon Umipwah76.521.0-32.0 mmol/LAnion Gap12.0Rnxgzzk26034-795 mg/dLBlood Urea Jmwigxrw11.07.0-18.0 mg/dLCreatinine2.000.55-1.02 mg/dLEstimated GFR ( Wfisdtb35>=60 mL/min/1.73m 2Estimated GFR (Non- Ame24>=60 mL/min/1.73m 2 BUN Creatinine Ratio18.1Zpvltpo2.98.5-10.1 mg/dLBilirubin Total0.60.2-1.0 mg/dL Aspartate Amino Xxqwlxwcbtu9723-84 U/LAlanine Gqcqbmfowvsyldzj8373-55 U/L Alkaline Uvddqglezto6201-627 U/LTotal Protein7.36.4-8.2 g/dLAlbumin Level3.43.4- 5.0 g/dLGlobulin3.9Albumin Globulin Ratio0.9Performing Lab:see noteML - [facility] LB Reason For Referral No Information Medications Medication SIG (Take, Route, Frequency, Duration) Notes Start Date End Date Status Cardura 4 MG 1/2 tab am and 1 tab pm Orally b id UnknownAspirin 81 81 MG1 tablet Orally Once a dayUnknownIncentive spirometerUse 1 device inhalation 4 times daily; Duration: 365 daysincentive spirometer- patient might not need now- [facility]Anastro[facility]ole 1 MG TAKE 1 TABLET BY MOUTH EVERY DAY Oral; Duration: DaysUnknownGlimepiride 2 MG TAKE 1 TABLET BY MOUTH EVERY DAY WITH BREAKFAST OR THE FIRST MAIN MEAL OF THE DAY; Duration: nownamLODIPine Besylate 5 MGTAKE 1 TABLET BY MOUTH TWICE A DAY; Duration: nownFurosemide 40 MG1 tablet Orally Once a day; Duration: 30 dayswith mg10/04/2023UnknownAllopurinol 100 MG1 tablet Orally Once a day; Duration: daysUnknownFerrous Sulfate 325 (65 Fe) MGTAKE 1 TABLET BY MOUTH TWICE A DAY; Duration: [facility] Softclix Lancets -USE TO TEST ONCE A DAY *DX E11.9*; Duration: nownFarxiga 5 MG1 tablet Orally Once a day; Duration: 08/19/2024UnknownVitamin D (Ergocalciferol) 1.25 MG (32647 UT)1 capsule Orally weeklyUnknowAvita [facility] System [facility] -TEST BLOOD SUGAR ONCE DAILY DX: E11.65; Duration: daysUnknownEzetimibe 10 MGTAKE 1 TABLET BY MOUTH EVERY DAY Oral; Duration: DaysUnknownPropafenone HCl ER 325 MGOral; Duration: DaysUnknownEntresto 24-26 MG1 tablet Orally Twice a day; Duration: 30 12/04/2024UnknownProbioticUnknownColchicine 0.6 MG1 tablet Orally At onset - repeat in 2 hours if needed; Duration: 04/13/2024UnknownPotassium Chloride ER 10 MEQTAKE 1 TABLET BY MOUTH EVERY DAY; Duration: nownCefdinir 300 MG1 capsules Orally once daily; Duration: 03/18/2025UnknownOmeprazole 40 MGTAKE 1 CAPSULE BY MOUTH EVERY DAY; Duration: nownCarvedilol 25 MGTAKE 1 TABLET BY MOUTH TWICE A DAY; Duration: nownLatanoprost 0.005 % Ophthalmic; Duration: 30 DaysUnknownLagevrio 200 MG4 capsules Orally every 12 hrs; Duration: 5 day(s)06/15/2024Unknown Immunizations Vaccine Route Administration Date Status Comme nts Flu, Fluad (82174) 65 yrs + High Dose Seasonal (6508-6452) Unknown 07/09/2017 Administered Flu, Fluad (72056) 65 yrs + High Dose Seasonal ()Bojvasb9406/17/2018 AdministeredFlu, Fluad (67562) 65 yrs + High Dose Seasonal ()Unknown 06/22/2020AdministeredFlu, Fluad (58455) 64 yrs + High Dose Seasonal () Tirlwos65/20/2021AdministeredFlu, Fluad (33068) 65 yrs + High Dose Seasonal ()Unhvwom79/19/2022AdministeredFlu, Fluad (03535) 65 yrs and older, single-dose syringe (7026-9318)Mugshaw3106/15/2020AdministeredFlu, Fluzone High- Dose (5193-5440) (50732) 65 yrs+Rnjtnye63/15/2021AdministeredPneumococcal (Pneumovax 23)Biqeyfe09/19/2022AdministeredPneumococcal (Prevnar 13)Unknown 07/09/2017AdministeredPneumococcal (Prevnar 13)Iqdrsds6806/17/2018Administered Social History Tobacco Use: Social History Observation Description Date Details (start date - stop date) Never Smoker NA - NA Tobacco Use/Smoking Question Answer Notes Patient is a nonsmoker Alcohol Screen (Audit-C) Question Answer Notes Did you have a drink containing alcohol in the p ast year? No Riwpjj5QmlvftrqfxcjfyYoscgisoZYJLJ-N (Standard) Question Answer Notes Did you have a drink containing alcohol in the p ast year? No Ptcmhz0TifbizqhqzypvkNszjpmts Problems Problem Type SNOMED Code ICD Code Onset Dates Problem Status W/U Status Risk Notes Problem Renal insufficiency (234001836) Renal ins ufficiency (593.9) ActiveconfirmedProblemEssential hypertension (02780581)Essential (primary) hypertension (I10)ActiveconfirmedProblemArthralgia of the ankle and/or foot (412048570)Ankle pain, chronic (719.47)ActiveconfirmedProblemRenal failure syndrome (80893948)Unspecified kidney failure (N19)ActiveconfirmedProblem Hypomagnesemia (311194339)Hypomagnesemia (E83.42)ActiveconfirmedProblem Hypercalcemia (45117490)Hypercalcemia (E83.52)ActiveconfirmedProblemMitral valve disorder (31538546)Nonrheumatic mitral (valve) insufficiency (I34.0)Active confirmedProblemParoxysmal atrial fibrillation (430470017)Paroxysmal atrial fibrillation (I48.0)ActiveconfirmedProblemChronic kidney disease stage 4 (766694218)Chronic kidney disease, stage 4 (severe) (N18.4)Activeconfirmed ProblemShortness of breath (222273666)Shortness of breath (R06.02)Active confirmedProblemHyperlipidaemia (52488238)Hyperlipemia (E78.5)Activeconfirmed ProblemMitral regurgitation (03294957)Mitral regurgitation (I34.0)Active confirmedProblemHypertension (61665555)Hypertension (I10)ActiveconfirmedProblem Intermittent claudication (15321595)Intermittent claudication (I73.9)Active confirmedProblemAtrial fibrillation (24732414)AF (paroxysmal atrial fibrillation) (I48.0)ActiveconfirmedProblemHeart failure (26661946)Congestive heart failure (CHF) (I50.9)ActiveconfirmedProblemGout (71163960)Gout (M10.9) ActiveconfirmedProblemBreast cancer (654238315)Breast cancer (C50.919)Active confirmedProblemPedal edema (005321872)Pedal edema (R60.0)ActiveconfirmedProblem Peripheral vascular disease (560901666)Peripheral vascular disease (I73.9)Active confirmedProblemLeft bundle branch block (54934006)Bundle branch block, left (I44.7)ActiveconfirmedProblemMitral insufficiency (91959447)Mitral insufficiency (I34.0)ActiveconfirmedProblemMonoclonal gammopathy of uncertain significance (disorder) (996417849)MGUS (monoclonal gammopathy of unknown significance) (D47.2)ActiveconfirmedProblemVentricular hypertrophy (281348745)Ventricular hypertrophy (I51.7)ActiveconfirmedProblemAbnormal liver function (68205417) Abnormal liver function (K76.89)ActiveconfirmedProblemCarcinoma in situ of breast (294642823)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 confirmedProblemDiabetic neuropathy (190208760)Diabetes mellitus with diabetic neuropathy (E11.40)ActiveconfirmedProblemMalignant neoplasm of female breast (288829297)Invasive ductal carcinoma of breast, left (C50.912)Activeconfirmed ProblemEssential hypertension (36637339)BP (high blood pressure) (I10)Active confirmedProblemAbnormal level of blood mineral (949193903)Low magnesium level (R79.0)ActiveconfirmedProblemDiabetes mellitus (36100241)Diabetes mellitus (E11.9)Activeconfirmed Vital Signs Blood pressure diastolic 82 mm Hg 08/03/2025 Rbruyj75 in08/03/2025lood pressure tuawcbdn748 mm Hg08/03/20255947Bjofxi952.2 lbs 08/03/2025BMI26.66 kg/m208/03/2025 Encounters Encounter Location Date Provider Diagnosis [facility] [address] [place] [address] 12/01/2024 Gregorio Mcnamara Medication managemen t Z79.899 [facility] [address] [place] [address] 12/22/2024 Gregorio Mcnamara [facility] [place] [address] 03/17/2025Doug [facility] [place] [address]/27/2024[facility] [place] [address]/27/2024[facility] [place] [address]/oug HoyAcute bronchitis, unspecified organism J20.9[facility] [facility] [place] [address]/oug [facility] [place] [address]/02/2025Doug [facility] [place] [address]/Doug [facility] [facility] [place] [address]/ Gregorio [facility] [facility] [place] [address]/11/2024Doug HoyEncounter for Medicare annual wellness exam Z00.00 and Senile osteopenia M85.80[address] [facility] [place] [address]/oug HoyCongestive heart failure (CHF) I50.9 ; AF (paroxysmal atrial fibrillation) I48.0 ; Hypertension I10and Diabetes mellitus with diabetic neuropathy E11.40[address] [place] [address]/07/2025Doug HoyHyperlipemia E78.5 ; Hypertension I10 and Congestive heart failure (CHF) I50.9B[address] [address]/04/2025Doug Hoy Hypertension I10 ; Congestive heart failure (CHF) I50.9 ; Gout M10.9 and Chronic kidney disease, stage 4 (severe) N18.4B[address] [address]/07/2025Doug HoyHyperlipemia E78.5 ; Hypertension I10 ; Congestive heart failure (CHF) I50.9 and Diabetes mellitus w ith diabetic neuropathy E11.40 Assessments Encounter Date Diagnosis (ICD Code) Assessment Notes Treatment Notes Treatment Clinical Notes Section Notes 09/02/2024 Congestive heart failure (CHF) ( ICD-10 - I50.9) retaining fluid from the pioglitazone - will d/cthat14AF (paroxysmal atrial fibrillation) (ICD-10 - I48.0)stabel rate lkvimqo3912/01/2024Hyperlipemia (ICD-10 - E78.5)12/01/2024Hypertension (ICD-10 - I10)03/30/2025Hypertension (ICD-10 - I10)03/30/2025ongestive heart failure (CHF) (ICD-10 - I50.9) 02/23/2025Encounter for Medicare annual wellness exam (ICD-10 - Z00.00) 02/23/2025Senile osteopenia (ICD-10 - M85.80)08/03/2025Hyperlipemia (ICD-10 - E78.5)08/03/2025Hypertension (ICD-10 - I10)08/24/2024cute bronchitis, unspecified organism (ICD-10 - J20.9)12/01/2024Medication management (ICD-10 - Z79.899)08/03/2025ongestive heart failure (CHF) (ICD-10 - I50.9)03/30/2025Gout (ICD-10 - M10.9)12/01/2024ongestive heart failure (CHF) (ICD-10 - I50.9) 09/02/2024Hypertension (ICD-10 - I10)god control here - better at home09/02/2024 Diabetes mellitus with diabetic neuropathy (ICD-10 - E11.40)03/30/2025hronic kidney disease, stage 4 (severe) (ICD-10 - N18.4)08/03/2025Diabetes mellitus with diabetic neuropathy (ICD-10 - E11.40) Plan Of Treatment Pending Test Test Name Order Date CMP (COMPLETE METABOLIC PANEL) 3 CMP (COMPLETE METABOLIC PANEL) 4 CMP (COMPLETE METABOLIC PANEL) 4 HEMOGLOBIN A1C (GLYCO) 08/03/2025 HEMOGLOBIN A1C (GLYCO) 02/22/2023 HEMOGLOBIN A1C (GLYCO) 06/03/2024 IRON, TOTAL 06/03/2024 IRON, TOTAL 02/22/2023 IRON, TOTAL 08/03/2025 LIPID PANEL (CHOL/TRIG/HDL/LDL) 08/03/20 25 LIPID PANEL (CHOL/TRIG/HDL/LDL) 02/23/20 23 LIPID PANEL (CHOL/TRIG/HDL/LDL) 06/03/20 24 CBC WITH DIFF 06/03/2024 CBC WITH DIFF 02/22/2023 VITAMIN D, 25 LEVEL (TOTAL) 02/22/2023 VITAMIN D, 25 LEVEL (TOTAL) 08/03/2025 VITAMIN D, 25 LEVEL (TOTAL) 06/03/2024 US Renal 11/13/2023 Insulin Level 02/22/2023 BMP - Basic Metabolic Panel 12/01/2024 STOOL OCCULT BLOOD 02/22/2023 STOOL OCCULT BLOOD 06/03/2024 BNP 02/22/2023 Covid-19 PCR (CVDTBH) 06/15/2024 XR DEXA BONE DENSITY 02/23/2025 THYROID PANEL (T4/TSH/FREE T3) 5 THYROID PANEL (T4/TSH/FREE T3) 3 THYROID PANEL (T4/TSH/FREE T3) 4 CMP (COMP MET BLANCO) w/eGFR CKD-EPI 2024 CBC WITH DIFF 08/03/2025 Next Appt Details Provider Name:Gregorio Mcnamara, 01:15:00 PM, [address] [place], [address], Insurance Providers Payer Name Payer Address Payer Phone Subscriber Number Group Number Insured Name Patient Relationship to Insured Coverage Start Date Coverage End Date [facility] [address] [address] [place], [place] [phone] [id number] Shana Jamisonelf - patient is the [id number] [facility] [address] [address] [place], [place] [id number], [place] - patient is the insured Medical (General) History Medical History History ICD Code Clostridium difficile infection B96.89 Ankle pain, chronic 719.47 Syncope R55 Acute cerebral hemorrhage I61.9 AF (paroxysmal atrial fibrillation) I48. 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 JoseGD05/26/2024 Hospitalization History Reason Date(Month/Year) hypertension Covid- hospital and rehab
--- OUTSIDE RECORDS SUMMARY | 2025-08-06 07:31 | XMS_ITS | Clinical Summary ---
Author Organization [facility] Healthcare Address [address] [place] [address] Care Team Providers Care Rd Manager Name Role Phone Unavailable Primary Care Provider Unavailabl e Allergies Active AllergyReactionsCriticalityNoted OfpwUgwrcgyhYjfheyp80/08/2024 Other Reaction(s): joint pain, muscle pain Medications MedicationSigDispense QuantityRefillsLast FilledStart DateEnd DateStatus metFORMIN (Glucophage) 500 MG tablet Take 1 tablet by mouth in the morning and 1 tablet before bedtime.Active carvedilol (Coreg) 25 MG tablet Take 0.5 tablets twice a day by oral route for 90 days.Active omeprazole (PriLOSEC) [address] capsule Take 1 capsule by mouth in the morning.Active potassium chloride CR (Klor-Con) 10 MEQ ER tablet Take 10 mEq by mouth in the morning.Active propafenone SR (Rythmol SR) 325 MG 12 hr capsule Take 1 capsule by mouth every 12 (twelve) hours12/07/2022ctive furosemide (Lasix) 40 MG tablet Take 40 mg by mouth in the morning.Active ezetimibe (Zetia) 10 MG tablet TAKE 1 TABLET BY MOUTH EVERY DAY FOR 30 DAYSActive anastrozole (Arimidex) 1 MG chemo tablet Take 1 tablet by mouth Daily.05/08/2023ctive amLODIPine (Norvasc) 5 MG tablet Take 1 tablet by mouth in the morning and 1 tablet before bedtime.04/30/2023 Active aspirin 81 MG chewable tablet Chew 1 tablet every day by oral route.Active latanoprost (Xalatan) 0.005 % ophthalmic solution Ophthalmic for 30 DaysActive doxazosin (Cardura) 4 MG tablet Take 4 mg by mouth at jywgsif5904/01/2023ctive ferrous sulfate 325 (65 Fe) MG tablet TAKE 1 TABLET BY MOUTH TWICE A DAY for 90Active Active Problems ProblemNoted DateDiagnosed DateAge-related nuclear cataract of left eye 02/08/2024Primary open angle glaucoma (POAG) of both eyes, mild stage10/31/2023 Family History Medical HistoryRelationNameCommentsCataractsFatherCataractsMotherRelationName StatusCommentsFatherMother Social History Tobacco UseTypesPacks/DayYears UsedDateSmoking Tobacco: NeverComments UnknownSex and Gender InformationValueDate RecordedSex Assigned at BirthNot on fileLegal VfvErpusy88/15/2023 6:36 PM EDTGender IdentityNot on fileSexual OrientationNot on file Plan of Treatment [place] [address]
--- OUTSIDE RECORDS SUMMARY | 2025-08-06 07:31 | XMS_ITS ---
Author Organization [facility] Address [address] [place] [address] Care Team Providers Care Dump Grader Name Role Phone Xavier Mcnamara MD Primary Care Provider [phone] Active Problems ProblemNoted DateDiagnosed DateStatus post biopsy of mpwfsj9604/17/2024Monoclonal gammopathy of renal significance (MGRS)04/17/2024KD (chronic kidney disease) 04/16/2024Stage 3 chronic kidney disease, unspecified whether stage 3a or 3b CKD 05/05/20231592Otwwcyuaohpdb95/07/2023Other specified menopausal and perimenopausal pltrfeqiy61/29/2021Malignant neoplasm of upper-outer quadrant of left breast in female, estrogen receptor /20/2018 Current Treatment and Therapy Plans No current plan information found. Past Treatment and Therapy Plans Plan NameStart DateDiscontinue DateTreatment MedicationsDiscontinue ReasonPlan ProviderCyclesAMB ZOLEDRONIC ACID FOR HYPERCALCEMIA* zoledronic fl-gbudqvqi-3.9NaCl (ZOMETA) Sandeep Hou MD1 of 1 cycle startedBONE MODIFYING AGENT: $$$$ - Q180D IF CrCl IS LESS THAN 30 ML/MIN/01/2022* denosumab (PROLIA) Sandeep Hou MDTreatment not started
--- OUTSIDE RECORDS SUMMARY | 2025-08-06 07:31 | XMS_ITS | Clinical Summary ---
Author Organization [employer] [facility] tem Address [id number] [address] [place] [address] Care Team Providers Care Pit Hoist Operator Name Role Phone Xavier Mcnamara MD Primary Care Provider +- Social History Tobacco UseTypesPacks/DayYears UsedDateSmoking Tobacco: Never AssessedChildcare AnswerDate ItdcnidgDmzgusylbBsznzms78/13/2019EmploymentAnswerDate Recorded FvkiqvjqpqAoxahes66/13/2019Purpose - LifeAnswerDate RecordedPurpose and direction in ujawEdftxwj01/11/2021CommentsUnknownSex and Gender InformationValueDate RecordedSex Assigned at BirthNot on fileLegal SexFemale 07/03/2018 9:20 AM EDTGender IdentityNot on fileSexual OrientationNot on file Plan of Treatment Not on file Medical Devices Not on file Insurance Care Teams Team MemberRelationshipSpecialtySthenlawson DateEnd Date Xavier Mcnamara MD PCP - Qkndzsg24/11/18
--- OUTSIDE RECORDS SUMMARY | 2025-08-06 07:31 | XMS_ITS | Clinical Summary ---
Author Organization [facility] Address [address] [place] [address] Care Team Providers [facility] Police Officer Name Role Phone Xavier Mcnamara MD Primary Care Provider [phone] Allergies Active AllergyReactionsCriticalityNoted NdfkJursrltaOnlnxpn-Ytu-Iig Reductase JxtzamjbtnQobooud19/01/2018 Other reaction(s): AOF Medications MedicationSigDispense QuantityRefillsLast FilledStart DateEnd DateStatus ezetimibe (ZETIA) 10 mg tablet Take 10 mg by mouth once daily.Active carvedilol (COREG) 25 mg tablet Take 25 mg by mouth as directed. Takes 1 1/2 tablet 2x a day Active furosemide (LASIX) 40 mg tablet Take 40 mg by mouth once daily. Alternates with 20mgActive propafenone SR (RYTHMOL SR) 325 mg 12 hr capsule Take 325 mg by mouth q 12 HR.04/12/2021ctive potassium chloride (K-TAB) 10 mEq tablet 09/22/2020Active omeprazole (PRILOSEC) 40 mg capsule Take 40 mg by mouth once daily.04/08/2021ctive amLODIPine (NORVASC) 2.5 mg tablet Take 5 mg by mouth twice daily.12/05/2021ctive doxazosin (CARDURA) 4 mg tablet Take 4 mg by mouth daily at bedtime. Takes 2mg in morning then 4mg at night 04/01/2023ctive ferrous sulfate 325 mg (65 mg iron) tablet Take 325 mg by mouth once daily.Active anastrozole (ARIMIDEX) 1 mg tablet Indications:Malignant neoplasm of upper-outer quadrant of left breast in female, estrogen receptor positive (HCC)TAKE 1 TABLET BY MOUTH EVERY DAY 90 tablet 3Active Additional Information Patient not taking.Reason: Discontinued by Another Health Care Provider, Reported on 06/14/2025 Lactobacillus acidophilus (PROBIOTIC ORAL) Take by mouth.Active glimepiride (AMARYL) 2 mg tablet TAKE 1 TABLET BY MOUTH EVERY DAY WITH BREAKFAST OR THE FIRST MAIN MEAL OF THE DAY5Active allopurinol (ZYLOPRIM) 100 mg tablet Take 1 tablet by mouth once daily.5Active ENTRESTO 24-26 mg tablet Take 1 tablet by mouth two times a day.Active Active Problems ProblemNoted DateDiagnosed DateStatus post biopsy of kmzrbe0504/17/2024Monoclonal gammopathy of renal significance (MGRS)04/17/2024KD (chronic kidney disease) 04/16/2024Stage 3 chronic kidney disease, unspecified whether stage 3a or 3b CKD 05/05/20231016Psugcisltzvpf25/07/2023Other specified menopausal and perimenopausal horslavof64/29/2021Malignant neoplasm of upper-outer quadrant of left breast in female, estrogen receptor lrgyvzlp43/20/2018 Encounters DateTypeDepartmentCare AckwRjnmsuslvtd73/22/2025 10:20 AM EDTVisit (SP) Office Hematology/Oncology [address] [place] [address] [address] [place] [address] Sandeep Clark MD MGUS (monoclonal gammopathy of unknown significance) (Primary Dx); Malignant neoplasm of upper-outer quadrant of left breast in female, estrogen receptor positive (HCC); Monoclonal gammopathy of renal significance (MGRS); Stage 3 chronic kidney disease, unspecified whether stage 3a or 3b CKD (HCC); Type 2 diabetes mellitus with diabetic polyneuropathy, unspecified whether fci insulin use (HCC); Cancer of breast, intraductal, left; Breast screening; Encounter for screening mammogram for malignant neoplasm of breast; 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, estrogen receptor positive (HCC); Personal history of malignant neoplasm of breast; Type 2 diabetes mellitus without complication, without long-term current use of insulin (HCC)06/14/2025Travelfrom Last 3 Months Immunizations ImmunizationAdministration DatesNext Dueinfluenza (HD-IIV3) vaccine, age 65+ yr, high dose, trivalent, PF (FLUZONE HIGH-DOSE)07/11/2022,06/12/2021,06/22/2020, 06/17/2018,07/09/2017influenza (HD-IIV4) vaccine, age 65+ yr, high dose, quadrivalent, PF (FLUZONE HIGH-DOSE)07/07/2021influenza (aIIV3) vaccine, age 65+ yr, trivalent, PF (FLUAD)06/15/2020pneumococcal conjugate (PCV13) vaccine, 13 valent (PREVNAR 13)06/17/2018,07/09/2017pneumococcal polysaccharide (PPV23) vaccine, 23 valent (PNEUMOVAX 23)07/11/2022unknown vaccine or immune globulin 07/07/2021 Social History Tobacco UseTypesPacks/DayYears UsedDateSmoking Tobacco: NeverPassive Smoke Exposure: NeverSmokeless Tobacco: Never Tobacco Cessation:Counseling Given: Not Answered Alcohol UseStandard Drinks/WeekCommentsYes0 (1 standard drink = 0.6 oz pure alcohol)very rarePHQ-2AnswerDate RecordedPHQ-2 kfbiz3675Area Deprivation IndexAnswerDate RecordedNational Score (1-100), lower number is lower risk78 03/24/2024State Score (1-10), lower number is lower lbyi4764Data from: https://www.neighborhoodatlas.[facility].edu/. Last address used for wds[address]4CommentsNoSex and Gender Information ValueDate RecordedSex Assigned at BirthNot on fileLegal FqqWkdvyc23/07/2018 9:12 AM EDTGender IdentityNot on fileSexual OrientationNot on file Last Filed Vital Signs Vital SignReadingTime TakenCommentsBlood Jksncara405/55006/14/2025 10:14 AM EDT Jllzy6814 10:14 AM UPLDgqhtigwxpp71.2 ??C (97.1 ??F)06/14/2025 10:14 AM EDTRespiratory Pedc718806/14/2025 10:14 AM EDTOxygen Yuwnrtqdml40%06/14/2025 10:14 AM EDTInhaled Oxygen Concentration--Jfextu10.2 kg (156 lb 15.5 oz)06/14/2025 10:14 AM FSSBjpdbe327.2 cm (5' 3.07 )06/14/2025 10:14 AM EDTBody Mass Index27.74 06/14/2025 10:14 AM EDT Plan of Treatment DateTypeDepartmentCare Team (Latest Contact Info)Jvemcjbhskv28/23/2026 10:30 AM EDTOffice Visit [facility] [address] [place] [address] [address] [place], [place] [address] lab12/20/2025 10:40 AM EDTVisit (SP) Office Hematology/Oncology [address] [place] [address] Sandeep Clark MD [address] [place] [address] 6 month follow up,labs 1 week priorHealth MaintenanceDue DateLast DoneComments Covid-19 Vaccine (#1)1949Annual PCP Team Chronic Disease Visit1962 Anxiety Wufuqowap23/18/1963Depression Uiynxkctv13/18/1963DTaP,Tdap,Td Vaccine (1 - Tdap)1963Shingrix Vaccine (1 of 2)1963Medicare Annual Wellness Visit09/23/2009one Density Vdjtmmxgm01/18/2010RSV Vaccine (1 - 1-dose 75+ series)2019Advance Directive Midnqmajpr65/01/2025Influenza Vaccine (#1) 510/, 07/07/2021, 06/12/2021, Additional history exists Hemoglobin/Ufsxvggqlz81, 11/27/2024, 10/19/2024, Additional history existsSerum Uollvzdjvb08/08/202609/04/2025, 11/27/2024, 10/19/2024, Additional history existsDiabetes Djbtivsbb79, 11/27/2024, 10/19/2024, Additional history existsPneumococcal Vaccine: 50+Completed 07/11/2022, 06/17/2018, 06/17/2018, Additional history exists Procedures Procedure NamePriorityDate/TimeAssociated DiagnosisCommentsKAPPA/EMILY,FREE,SER Lieqzde4705/31/2025 10:57 AM EDT 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) Stage 3 chronic kidney disease, unspecified whether stage 3a or 3b CKD (HCC) Malignant neoplasm of upper-outer quadrant of left breast in female, estrogen receptor positive (HCC) IMMUNOFIXATION SCREEN, CSHBRQgnnubf26/08/2025 10:57 AM EDT 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) Stage 3 chronic kidney disease, unspecified whether stage 3a or 3b CKD (HCC) Malignant neoplasm of upper-outer quadrant of left breast in female, estrogen receptor positive (HCC) IMMUNOGLOBULINS PEJUurbfsx85/08/2025 10:57 AM EDT 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) Stage 3 chronic kidney disease, unspecified whether stage 3a or 3b CKD (HCC) Malignant neoplasm of upper-outer quadrant of left breast in female, estrogen receptor positive (HCC) PROTEIN TOTAL FTEXhgsmjr67/08/2025 10:57 AM EDT 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) Stage 3 chronic kidney disease, unspecified whether stage 3a or 3b CKD (HCC) Malignant neoplasm of upper-outer quadrant of left breast in female, estrogen receptor positive (HCC) PROTEIN ELECTROPHORESIS SERUM (P)Oykgsub8605/31/2025 10:57 AM EDT 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) Stage 3 chronic kidney disease, unspecified whether stage 3a or 3b CKD (HCC) Malignant neoplasm of upper-outer quadrant of left breast in female, estrogen receptor positive (HCC) CA 15-3 KSPIxanhln45/08/2025 10:57 AM EDT 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) Stage 3 chronic kidney disease, unspecified whether stage 3a or 3b CKD (HCC) Malignant neoplasm of upper-outer quadrant of left breast in female, estrogen receptor positive (HCC) FOLATE ZJFIUXilajns10/08/2025 10:57 AM EDT 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) Stage 3 chronic kidney disease, unspecified whether stage 3a or 3b CKD (HCC) Malignant neoplasm of upper-outer quadrant of left breast in female, estrogen receptor positive (HCC) VITAMIN B12 XXLCIWabttrd94/08/2025 10:57 AM EDT 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) Stage 3 chronic kidney disease, unspecified whether stage 3a or 3b CKD (HCC) Malignant neoplasm of upper-outer quadrant of left breast in female, estrogen receptor positive (HCC) FERRITIN DWOTsejouq51/08/2025 10:57 AM EDT 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) Stage 3 chronic kidney disease, unspecified whether stage 3a or 3b CKD (HCC) Malignant neoplasm of upper-outer quadrant of left breast in female, estrogen receptor positive (HCC) IRON + DBBTIutbxmn13/08/2025 10:57 AM EDT 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) Stage 3 chronic kidney disease, unspecified whether stage 3a or 3b CKD (HCC) Malignant neoplasm of upper-outer quadrant of left breast in female, estrogen receptor positive (HCC) CALCIUM IONIZED FPBOOOwqeick04/08/2025 10:57 AM EDT 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) Stage 3 chronic kidney disease, unspecified whether stage 3a or 3b CKD (HCC) Malignant neoplasm of upper-outer quadrant of left breast in female, estrogen receptor positive (HCC) URIC ACID FPOECAktseya14/08/2025 10:57 AM EDT 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) Stage 3 chronic kidney disease, unspecified whether stage 3a or 3b CKD (HCC) Malignant neoplasm of upper-outer quadrant of left breast in female, estrogen receptor positive (HCC) MONOCLONAL PROTEIN, SERUM (BLOOD)Linhhiy2705/31/2025 10:57 AM EDT 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) Stage 3 chronic kidney disease, unspecified whether stage 3a or 3b CKD (HCC) Malignant neoplasm of upper-outer quadrant of left breast in female, estrogen receptor positive (HCC) PROTEIN ELECTROPHORESIS SERUM W/ZSIMBDHqthuao14/08/2025 10:57 AM EDT 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) Stage 3 chronic kidney disease, unspecified whether stage 3a or 3b CKD (HCC) Malignant neoplasm of upper-outer quadrant of left breast in female, estrogen receptor positive (HCC) PHOSPHORUS UEWLEDRYNJkgizfv46/08/2025 10:57 AM EDT 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) Stage 3 chronic kidney disease, unspecified whether stage 3a or 3b CKD (HCC) Malignant neoplasm of upper-outer quadrant of left breast in female, estrogen receptor positive (HCC) LD LACTATE BSCAZJJMwfwylf14/08/2025 10:57 AM EDT 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) Stage 3 chronic kidney disease, unspecified whether stage 3a or 3b CKD (HCC) Malignant neoplasm of upper-outer quadrant of left breast in female, estrogen receptor positive (HCC) COMPREHENSIVE METABOLIC QYOOPXqeaxwm80/08/2025 10:57 AM EDT 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) Stage 3 chronic kidney disease, unspecified whether stage 3a or 3b CKD (HCC) Malignant neoplasm of upper-outer quadrant of left breast in female, estrogen receptor positive (HCC) CBC + TBOYYsbgsvm61/08/2025 10:57 AM EDT 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) Stage 3 chronic kidney disease, unspecified whether stage 3a or 3b CKD (HCC) Malignant neoplasm of upper-outer quadrant of left breast in female, estrogen receptor positive (HCC) B2 MICROGLOBULIN CYotqjom90/08/2025 10:57 AM EDT 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) Stage 3 chronic kidney disease, unspecified whether stage 3a or 3b CKD (HCC) Malignant neoplasm of upper-outer quadrant of left breast in female, estrogen receptor positive (HCC) from Last 3 Months Results * (ABNORMAL) IMMUNOFIXATION SCREEN, SERUM (05/31/2025 10:57 AM EDT)Component ValueRef RangeTest MethodAnalysis TimePerformed AtPathologist SignatureMPA ResultM protein is present.(A)No M protein is identified.06/03/2025 1:05 PM [facility] LABInterpretation (MPA)Atypical restricted bands are present in the IgM and kappa regions. Consistent with IgM kappa monoclonal gammopathy.06/03/2025 1:05 PM [facility] Staff Review (MPA)Reviewed by Kenisha Rico MD06/03/2025 1:05 PM [facility] LABSpecimen (Source)Anatomical Location / Laterality Collection Method / VolumeCollection TimeReceived TimeBloodBLOOD SPECIMEN / UnknownVenipuncture / Ksurayj8005/31/2025 10:57 AM EDT05/31/2025 10:58 AM EDT Narrative Authorizing ProviderResult TypeResult StatusSandeep Clark MDLABORATORYFinal ResultPerforming OrganizationAddressCity/State/ZIP CodePhone Number [facility] [address] [facility] [place] [address], * (ABNORMAL) PROTEIN ELECTROPHORESIS SERUM (P) (05/31/2025 10:57 AM EDT) ComponentValueRef RangeTest MethodAnalysis TimePerformed AtPathologist SignatureAlbumin for SPE3.863.43 - 5.41 g/dL06/02/2025 10:21 AM [facility] LABAlpha 1 Globulin0.330.18 - 0.43 g/dL06/02/2025 10:21 AM [facility] LABAlpha 2 Globulin0.720.42 - 0.98 g/dL 06/02/2025 10:21 AM [facility] LABBeta Globulin1.150.61 - 1.17 g/dL06/02/2025 10:21 AM [facility] LABGamma Globulin 0.640.53 - 1.51 g/dL06/02/2025 10:21 AM [facility] Interpretation (Prot Electro)An M protein is identified on protein electrophoresis.(A)No definitive M protein is identified on protein electrophoresis.06/02/2025 10:21 AM [facility] Interpretation Comment for Protein ElectrophoresisSee separate immunofixation report for characterization of monoclonal gammopathy.06/02/2025 10:21 AM EDT [facility] LABM-Protein LocationBeta Fraction 10:21 AM [facility] LABM-Protein Concentration0.38(H) <=0.00 g/dL06/02/2025 10:21 AM [facility] LABSPE Staff ReviewReviewed by Rita Avery M.D., Ph.D006/02/2025 10:21 AM EDT [facility] LABSpecimen (Source)Anatomical Location / LateralityCollection Method / VolumeCollection TimeReceived TimeBloodBLOOD SPECIMEN / UnknownVenipuncture / Sryjarp5805/31/2025 10:57 AM EDT05/31/2025 10:58 AM EDT Narrative [facility] - 06/02/2025 10:21 AM EDT Serum electrophoresis test was performed using the Meizu V8 NEXUS capillary electrophoresis method. Results obtained with different assay methods or kits cannot be used interchangeably. Authorizing ProviderResult TypeResult StatusSandeep Clark MDLABORATORYFinal ResultPerforming OrganizationAddressCity/State/ZIP CodePhone Number [facility] [address] [facility] [address] [place] [address], [place] * (ABNORMAL) KAPPA/DIAZ,FREE,SER (05/31/2025 10:57 AM EDT)ComponentValueRef RangeTest MethodAnalysis TimePerformed AtPathologist SignatureKappa Free, Serum54.4(H)3.3 - 19.4 mg/L06/01/2025 2:53 PM EDTHE [facility] LABComment: Rarely, increased serum free light chains levels may not be detected or accurately quantified due to prozone phenomenon or in high viscosity samples using this immunoturbidimetric assay. Correlation with other laboratory results and clinical findings is recommended. The [employer] Free Light Chain was performed using the Binding Site Optilite immunoturbidimetric method. Result obtained with different assay methods or kits cannot be used interchangeably. Lambda Free, Serum25.25.7 - 26.3 mg/L06/01/2025 2:53 PM EDTHE [facility] LABComment: Rarely, increased serum free light chains levels may not be detected or accurately quantified due to prozone phenomenon or in high viscosity samples using this immunoturbidimetric assay. Correlation with other laboratory results and clinical findings is recommended. The Lambda Free Light Chain was performed using the Binding Site Optilite immunoturbidimetric method. Result obtained with different assay methods or kits cannot be used interchangeably. ?? K/L Ratio, Serum2.16(H)0.26 - 1.65006/01/2025 2:53 PM ED[facility] LABSpecimen (Source)Anatomical Location / LateralityCollection Method / VolumeCollection TimeReceived TimeBloodBLOOD SPECIMEN / UnknownVenipuncture / Flzstmj9605/31/2025 10:57 AM EDT05/31/2025 10:58 AM EDT Narrative Authorizing ProviderResult TypeResult StatusVivek Eduardo CLEMENTELABORATORYFinal ResultPerforming OrganizationAddressCity/State/ZIP CodePhone Number [facility] [address] [facility] [address] [place] [address], [place] * (ABNORMAL) LACTATE DEHYDROGENASE (05/31/2025 10:57 AM EDT)ComponentValueRef RangeTest MethodAnalysis TimePerformed AtPathologist CrkhvuapxOJ071(H)135 - 214 U/L05/31/2025 6:32 PM EDTCUN[facility] LABSpecimen (Source) Anatomical Location / LateralityCollection Method / VolumeCollection Time Received TimeBloodBLOOD SPECIMEN / UnknownVenipuncture / Eljuyim7305/31/2025 10:57 AM EDT05/31/2025 10:58 AM EDT Narrative Authorizing ProviderResult TypeResult StatusSandeep Clark MDLABORATORYFinal ResultPerforming OrganizationAddressCity/State/ZIP CodePhone Number [facility] [address] [place] [address], * VITAMIN B12 (05/31/2025 10:57 AM EDT)ComponentValueRef RangeTest Method Analysis TimePerformed AtPathologist SignatureVitamin [id number] - 1,245 pg/mL 05/31/2025 6:24 PM EDTHE [facility] LABSpecimen (Source) Anatomical Location / LateralityCollection Method / VolumeCollection Time Received TimeBloodBLOOD SPECIMEN / UnknownVenipuncture / Ximzogn4505/31/2025 10:57 AM EDT05/31/2025 10:58 AM EDT Narrative Authorizing ProviderResult TypeResult StatusSandeep Clark MDLABORATORYFinal ResultPerforming OrganizationAddressty/State/ZIP CodePhone Number [facility] [address] [place] [address], * (ABNORMAL) URIC ACID (05/31/2025 10:57 AM EDT)ComponentValueRef RangeTest MethodAnalysis TimePerformed AtPathologist SignatureUric Acid7.2(H)2.5 - 6.6 mg/dL05/31/2025 6:32 PM EDTHE [facility] LABSpecimen (Source) Anatomical Location / LateralityCollection Method / VolumeCollection Time Received TimeBloodBLOOD SPECIMEN / UnknownVenipuncture / Yfqyvqo1005/31/2025 10:57 AM EDT05/31/2025 10:58 AM EDT Narrative Authorizing ProviderResult TypeResult StatusVivek Abhyankar MDLABORATORYFinal ResultPerforming OrganizationAddressCity/State/ZIP CodePhone Number [facility] [address] [facility] [address] [address], [place] * PROTEIN, TOTAL (05/31/2025 10:57 AM EDT)ComponentValueRef RangeTest Method Analysis TimePerformed AtPathologist SignatureProtein, Total6.76.3 - 8.0 g/dL 05/31/2025 6:14 PM EDTCUN[facility] LABSpecimen (Source) Anatomical Location / LateralityCollection Method / VolumeCollection Time Received TimeBloodBLOOD SPECIMEN / UnknownVenipuncture / Oijxobz1105/31/2025 10:57 AM EDT05/31/2025 10:58 AM EDT Narrative Authorizing ProviderResult TypeResult StatusViveaj Clark MDLABORATORYFinal ResultPerforming OrganizationAddressCity/State/ZIP CodePhone Number [facility] [address] [address], [place] * PHOSPHORUS INORGANIC (05/31/2025 10:57 AM EDT)ComponentValueRef RangeTest MethodAnalysis TimePerformed AtPathologist SignaturePhosphorus3.52.7 - 4.8 mg/dL05/31/2025 6:32 PM EDTCUNIV[facility] LABSpecimen (Source) Anatomical Location / LateralityCollection Method / VolumeCollection Time Received TimeBloodBLOOD SPECIMEN / UnknownVenipuncture / Cbpzzhv2405/31/2025 10:57 AM EDT05/31/2025 10:58 AM EDT Narrative Authorizing ProviderResult TypeResult StatusSandeep Clark MDLABORATORYFinal ResultPerforming OrganizationAddressty/State/ZIP CodePhone Number [facility] [address] [facility] [address] [address], [place] * IRON AND TIBC (05/31/2025 10:57 AM EDT)ComponentValueRef RangeTest Method Analysis TimePerformed AtPathologist QvsotducvByrm1531 - 186 ug/dL05/31/2025 6:18 PM EDTCUN[facility] XRXHBFN555847 - 386 ug/dL05/31/2025 6:18 PM EDTCUN[facility]ERSITY [facility] LABTransferrin Rtjidoembq80.515.0 - 57.0 %05/31/2025 6:18 PM EDTHE [facility] LABSpecimen (Source) Anatomical Location / LateralityCollection Method / VolumeCollection Time Received TimeBloodBLOOD SPECIMEN / UnknownVenipuncture / Ajarbxg4105/31/2025 10:57 AM EDT05/31/2025 10:58 AM EDT Narrative Authorizing ProviderResult TypeResult StatusSandeep Clark LABORATORYFinal ResultPerforming OrganizationAddEagleville Hospitalty/State/ZIP CodePhone Number [facility] [address] [place] [id number], [place] * (ABNORMAL) IMMUNOGLOBULINS,IGG,IGA,IGM (05/31/2025 10:57 AM EDT)ComponentValue Ref RangeTest MethodAnalysis TimePerformed AtPathologist FdurjisvdIeP989579 - 1,600 mg/dL05/31/2025 5:39 PM EDTHE [facility] HOUWzW94727 - 400 mg/dL05/31/2025 5:39 PM [facility] KKKEuR261(H)40 - 230 mg/dL05/31/2025 5:39 PM [facility] LABSpecimen (Source)Anatomical Location / LateralityCollection Method / VolumeCollection TimeReceived TimeBloodBLOOD SPECIMEN / UnknownVenipuncture / Igsbedo9605/31/2025 10:57 AM EDT05/31/2025 10:58 AM EDT Narrative Authorizing ProviderResult TypeResult StatusSandeep Clark MDLABORATORYFinal ResultPerforming OrganizationAddEagleville Hospitalty/State/ZIP CodePhone Number [facility] [address] [address], [place] * FOLATE, SERUM (05/31/2025 10:57 AM EDT)ComponentValueRef RangeTest Method Analysis TimePerformed AtPathologist SignatureFolate>20.0>4.7 ng/mL05/31/2025 6:24 PM [facility] LABComment: A result of > 20 ng/mL is not necessarily indicative of a pathologic or treatable condition: it reflects a limitation of the test methodology. Assay reference range: 4.8 to 24.2 ng/mL. Suitable for detection of folate deficiency. Reference: Folate III (Folate III) [package insert V 1.0 Italian]. [facility], [place], [place]: July 2015. Specimen (Source)Anatomical Location / LateralityCollection Method / Volume Collection TimeReceived TimeBloodBLOOD SPECIMEN / UnknownVenipuncture / Unknown 05/31/2025 10:57 AM EDT05/31/2025 10:58 AM EDT Narrative Authorizing ProviderResult TypeResult StatusJefferson [facility] ([facility])aj Chenmaya CLEMENTELABORATORYFinal ResultPerforming OrganizationAddressCity/State/ZIP CodePhone Number [facility] [address] [place] [address], * (ABNORMAL) FERRITIN (05/31/2025 10:57 AM EDT)ComponentValueRef RangeTest MethodAnalysis TimePerformed AtPathologist BhhrcifhdPqoamxrx482.0(H)14.7 - 205.1 ng/mL05/31/2025 6:17 PM EDTCUN[facility] LABSpecimen (Source)Anatomical Location / LateralityCollection Method / VolumeCollection TimeReceived TimeBloodBLOOD SPECIMEN / UnknownVenipuncture / Ynebokn5005/31/2025 10:57 AM EDT05/31/2025 10:58 AM EDT Narrative Authorizing ProviderResult TypeResult StatusViveaj Esterhortensia CLEMENTELABORATORYFinal ResultPerforming OrganizationAddressty/State/ZIP CodePhone Number [facility] [address] [place] [address], * (ABNORMAL) COMPREHENSIVE METABOLIC PANEL (05/31/2025 10:57 AM EDT)Component ValueRef RangeTest MethodAnalysis TimePerformed AtPathologist Signature Protein, Total7.16.3 - 8.0 g/dL05/31/2025 6:32 PM [facility] LABAlbumin3.93.9 - 4.9 g/dL05/31/2025 6:32 PM [facility] LABCalcium, Total9.78.5 - 10.2 mg/dL05/31/2025 6:32 PM [facility] LABBilirubin, Total0.40.2 - 1.3 mg/dL05/31/2025 6:32 PM EDT [facility] LABAlkaline Sudpeopluhe02173 - 123 U/L05/31/2025 6:32 PM [facility] REIHSB6730 - 35 U/L05/31/2025 6:32 PM [facility] QYUVAD709 - 38 U/L05/31/2025 6:32 PM EDT [facility] KXXGmxcrbc303(H)74 - 99 mg/dL05/31/2025 6:32 PM [facility] LABComment: The [place] [employer] (ADA) provides guidance for cutoff values for fasting glucose andrandom glucose. The ADA defines fasting as no [...] Standards of Medical Care in Diabetes 2016, [place] [employer]. Diabetes Care. 2016.39(Suppl 1). BUN41(H)7 - 21 mg/dL05/31/2025 6:32 PM [facility] Creatinine1.88(H)0.58 - 0.96 mg/dL05/31/2025 6:32 PM [facility] VIVLbmgyl400692 - 144 mmol/L05/31/2025 6:32 PM [facility] LABPotassium4.43.7 - 5.1 mmol/L05/31/2025 6:32 PM [facility] PDHTwidniay40358 - 107 mmol/L05/31/2025 6:32 PM [facility] VOPRB13435 - 30 mmol/L05/31/2025 6:32 PM [facility] LABAnion Ebh714 - 15 mmol/L05/31/2025 6:32 PM [facility] LABEstimated Glomerular Filtration Rate27(L)>=60 mL/min/1.73m 05/31/2025 6:32 PM [facility] LABComment:Estimated Glomerular Filtration Rate (eGFR) is calculated using the 2020 CKD-EPI creatinine equation. This equation utilizes serum creatinine, sex, and age as parameters. The creatinine assay has traceable calibration to isotope dilution- mass spectrometry. Refer to KDIGO guidelines for clinical interpretation. In patients with unstable renal function, e.g. those with acute kidney injury, the eGFRmay not accurately reflect actual GFR.Specimen (Source)Anatomical Location / LateralityCollection Method / VolumeCollection TimeReceived TimeBloodBLOOD SPECIMEN / UnknownVenipuncture / Xvgruwa1505/31/2025 10:57 AM EDT05/31/2025 10:58 AM EDT Narrative Authorizing ProviderResult TypeResult StatusSandeep Clark MDLABORATORYFinal ResultPerforming OrganizationAddressCity/State/ZIP CodePhone Number [facility] [address] [place] [address], * CALCIUM, IONIZED (05/31/2025 10:57 AM EDT)ComponentValueRef RangeTest Method Analysis TimePerformed AtPathologist SignatureNormalized Calcium1.241.08 - 1.30 mmol/L05/31/2025 2:24 PM [facility] LABCalcium Ionized, Whole Blood1.281.08 - 1.30 mmol/L05/31/2025 2:24 PM [facility] LABSpecimen (Source)Anatomical Location / Laterality Collection Method / VolumeCollection TimeReceived TimeBloodBLOOD SPECIMEN / UnknownVenipuncture / Ehqrlks7805/31/2025 10:57 AM EDT05/31/2025 10:58 AM EDT Narrative Authorizing ProviderResult TypeResult StatusViveaj Clark MDLABORATORYFinal ResultPerforming OrganizationAddressty/State/ZIP CodePhone Number [facility] [place] [address], * COMPLETE BLOOD COUNT AND DIFFERENTIAL (05/31/2025 10:57 AM EDT)ComponentValue Ref RangeTest MethodAnalysis TimePerformed AtPathologist SignatureWBC8.383.70 - 11.00 k/uL05/31/2025 11:[address] LABRBC 4.243.90 - 5.20 m/uL05/31/2025 11:01 AM [facility] KPXUfiluypoqy65.111.5 - 15.5 g/dL05/31/2025 11:01 [facility] IYWLcedrtrigb97.636.0 - 46.0 %05/31/2025 11:01 [address] [facility]TNOR[facility] XBLVVS88.880.0 - 100.0 fL05/31/2025 11:01 AM EDT [facility] TBMCIH57.926.0 - 34.0 pg05/31/2025 11:01 AM [facility] CNLDTLO07.330.5 - 36.0 g/dL05/31/2025 11:01 AM [facility] LABRDW-CV13.811.5 - 15.0 % 05/31/2025 11:01 AM [facility] LABPlatelet Lhxad598 150 - 400 k/uL05/31/2025 11:01 AM [facility] LABMPV 10.69.0 - 12.7 fL05/31/2025 11:01 AM [facility] Neutrophils %76.0%05/31/2025 11:01 AM [facility] Abs Neut6.371.45 - 7.50 k/uL05/31/2025 11:01 AM [facility] LABLymphocytes %13.6%05/31/2025 11:01 AM [facility] LABAbs Lymph1.141.00 - 4.00 k/uL05/31/2025 11:01 AM [facility] LABMonocytes %8.1%05/31/2025 11:01 AM [facility] LABAbs Mono0.68<0.87 k/uL05/31/2025 11:01 AM EDT [facility] LABEosinophils %1.4%05/31/2025 11:01 AM EDT [facility] LABAbs Eosin0.12<0.46 k/uL05/31/2025 11:01 AM [facility] LABBasophils %0.5%05/31/2025 11:01 AM [facility] LABAbs Baso0.04<0.11 k/uL05/31/2025 11:01 AM [facility] LABImmature Granulocytes %0.4% 05/31/2025 11:01 AM ED[facility] LABAbs Immature Gran 0.03<0.10 k/05/31/2025 11:01 AM ED[facility] LABNRBC 0.0/100 WBC05/31/2025 11:01 AM [facility] Absolute nRBC<0.01<0.01 k/05/31/2025 11:01 AM ED[facility] LABDiff LmarYaxr84/08/2025 11:01 AM [facility] LABSpecimen (Source)Anatomical Location / LateralityCollection Method / VolumeCollection TimeReceived TimeBloodBLOOD SPECIMEN / UnknownVenipuncture / Mfjundk2405/31/2025 10:57 AM EDT05/31/2025 10:58 AM EDT Narrative Authorizing ProviderResult TypeResult StatusSandeep Clark MDLABORATORYFinal ResultPerforming OrganizationAddressCity/State/ZIP CodePhone Number [facility] [address] [place] [address] * CA 15-3 BLD (05/31/2025 10:57 AM EDT)ComponentValueRef RangeTest Method Analysis TimePerformed AtPathologist SignatureBreast CA 15-312.6<26.0 U/mL 05/31/2025 6:18 PM EDTHE [facility] LABComment:The CA 15-3 test methodology used is the Electrochemiluminescence Immunoassay by [employer].Results obtained with different methods or kits cannot be used interchangeably.Specimen (Source)Anatomical Location / LateralityCollection Method / VolumeCollection TimeReceived TimeBloodBLOOD SPECIMEN / Unknown Venipuncture / Oiojugb7105/31/2025 10:57 AM EDT05/31/2025 10:58 AM EDT Narrative Authorizing ProviderResult TypeResult StatusJefferson [facility] ([facility])aj batsheva NHLABORATORYFinal ResultPerforming OrganizationAddressty/State/ZIP CodePhone Number [facility] [address] [place] [address], * (ABNORMAL) B2 MICROGLOBULIN (05/31/2025 10:57 AM EDT)ComponentValueRef Range Test MethodAnalysis TimePerformed AtPathologist SignatureB2 Microglobulin4.9 (H)<3.1 mg/L05/31/2025 6:18 PM EDTHE [facility] LABComment: Beta-2 Microglobulin test is performed using the [employer] immunoturbidimetric method. Results obtained with different methods or kits cannot be used interchangeably.Specimen (Source)Anatomical Location / LateralityCollection Method / VolumeCollection TimeReceived TimeBloodBLOOD SPECIMEN / UnknownVenipuncture / Zsolkym2905/31/2025 10:57 AM EDT05/31/2025 10:58 AM EDT Narrative Authorizing ProviderResult TypeResult StatusJefferson [facility] ([facility])aj Clark MDCUSHING MEMORIAL HOSPITALORATORYFinal ResultPerforming OrganizationAddEagleville Hospitalty/State/ZIP CodePhone Number [facility] [address] [place] [address], from Last 3 Months Insurance Care Teams Team MemberRelationshipSpecialtyStart Xavier Mcnamara MD PCP - GeneralFamily Medicine05/30/18
[2025-08-06 07:59] LABS: Hematocrit 41.7 % (36.0-48.0); Hemoglobin 13.9 g/dL (12.0-16.0); Immature Granulocytes Abs Auto 0.02 10^3/uL (0.00-0.03); Immature Granulocytes Pct Auto 0.2 % (0.0-0.5); Lymphocytes Absolute Auto 1.4 10^3/uL (1.2-3.8); Mean Corpuscular HGB Conc 33.3 g/dL (29.9-35.2); Mean Corpuscular Hemoglobin 31.7 pg (26.7-34.0); Mean Corpuscular Volume 95.0 fL (81.0-99.0); Platelet Count 251 10^3/uL (150-450); Red Blood Count 4.39 10^6/uL (4.20-5.40); White Blood Count 9.3 10^3/uL (4.0-11.0)
[2025-08-06 08:22] LABS: Alanine Aminotransferase 18 U/L (14-59); Albumin Globulin Ratio 0.9; Albumin Level 3.5 g/dL (3.4-5.0); Alkaline Phosphatase 99 U/L (46-116); Anion Gap 14.0; Aspartate Amino Transferase 19 U/L (15-37); Blood Urea Nitrogen 44.0 mg/dL (7.0-18.0); Calcium 9.2 mg/dL (8.5-10.1); Carbon Dioxide 29.7 mmol/L (21.0-32.0); Chloride 102 mmol/L (98-107); Cholesterol 239 mg/dL (<=200); Estimated GFR (African America 24 (>=60 mL/min/1.73m^2); Estimated GFR (Non-African Ame 20 (>=60 mL/min/1.73m^2); Free T3 2.38 pg/mL (2.18-3.98); Globulin 3.8 g/dL; Glucose 134 mg/dL (74-106); HDL Cholesterol 76 mg/dL (40-60); Potassium 4.7 mmol/L (3.5-5.1); Sodium 141 mmol/L (136-145); Thyroid Stimulating Hormone 7.045 uIU/mL (0.358-3.740); Total Protein 7.3 g/dL (6.4-8.2); Triglycerides 121 mg/dL (<=150); VLDL CHOLESTEROL 24.2 mg/dL
[2025-08-06 09:01] LABS: Iron 81.0 ug/dL (50.0-170.0)
== END 2025-08-06 07:26 | disposition home or self-care (01) ==
PROVIDERS: PCP Family Medicine; Visit Provider Family Medicine
DX: E78.5 Hyperlipidemia, unspecified (principal); I50.9 Heart failure, unspecified; E11.40 Type 2 diabetes mellitus with diabetic neuropathy, unspecified; D64.9 Anemia, unspecified; E55.9 Vitamin D deficiency, unspecified; I11.0 Hypertensive heart disease with heart failure
CPT/HCPCS: 36415; 80053; 80061; 82306; 83036; 83540; 84436; 84443; 84481; 85025

== ENCOUNTER 2025-08-27 08:54 | Outpatient (OUT) | payer MEDICARE, OTHER, SELFPAY ==
[2025-08-27 10:26] LABS: Alanine Aminotransferase 20 U/L (14-59); Albumin Globulin Ratio 0.9; Albumin Level 3.5 g/dL (3.4-5.0); Alkaline Phosphatase 97 U/L (46-116); Anion Gap 15.0; Aspartate Amino Transferase 16 U/L (15-37); Blood Urea Nitrogen 51.0 mg/dL (7.0-18.0); Calcium 9.2 mg/dL (8.5-10.1); Carbon Dioxide 27.3 mmol/L (21.0-32.0); Chloride 105 mmol/L (98-107); Estimated GFR (African America 26 (>=60 mL/min/1.73m^2); Estimated GFR (Non-African Ame 22 (>=60 mL/min/1.73m^2); Free T3 2.24 pg/mL (2.18-3.98); Globulin 3.8 g/dL; Glucose 157 mg/dL (74-106); Potassium 4.3 mmol/L (3.5-5.1); Sodium 143 mmol/L (136-145); Thyroid Stimulating Hormone 2.724 uIU/mL (0.358-3.740); Total Protein 7.3 g/dL (6.4-8.2)
== END 2025-08-27 08:55 | disposition home or self-care (01) ==
LOC: LAB 08:54
PROVIDERS: PCP Family Medicine; Visit Provider Family Medicine
DX: E03.9 Hypothyroidism, unspecified (principal); N28.9 Disorder of kidney and ureter, unspecified
CPT/HCPCS: 36415; 80053; 84436; 84443; 84481